=== PATIENT | male | born 1970 | race Hispanic/Latino ===

== ENCOUNTER 2017-10-31 07:22 | Emergency (ER) | payer OTHER ==
--- OUTSIDE RECORDS SUMMARY | 2017-10-31 07:26 | XMS REPORT | Continuity of Care Document ---
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
--- OUTSIDE RECORDS SUMMARY | 2017-10-31 07:26 | XMS REPORT | Continuity of Care Document ---
:1970 Author Organization [facility] Care Team Providers Name Role Phone Alcides Renae MD Unavailable Insurance Providers Payer name Policy type / Coverage Policy ID Covered republican ID Policy [place]) [place]) [place]) [place]) [place]) [place]) [place]) [place]) [place]* *[place] Encounters Encounter Performer Location Date Office Visit Alcides Renae MD [facility] [place] Feb 06, 2014 Problems Problem Effective Dates 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, 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, 2014 Active Procedures Date Description Comments Dec 01, 2013 smoking status former smoker Dec 01, 2013 smoking status Never smoker Feb 06, 2014 smoking status Never smoker Medications Medication Instructions [...] - 8462-4 BP DIASTOLIC 87 mm Hg Jan 01, 2014 weight E&M - 3141-9 WEIGHT 165.0 lb Jan 01, 2014 height E&M - 8302-2 HEIGHT 69 in Jan 01, 2014 temperature E&M TEMPERATURE 97.3 deg f Jan 01, 2014 pulse rate E&M - 8867-4 PULSE RATE 62 /min Jan 01, 2014 blood pressure, systolic - 8480-6 BP SYSTOLIC 116 mm Hg Jan 01, 2014 blood pressure, diastolic - 8462-4 BP DIASTOLIC 78 mm Hg Feb 06, 2014 weight E&M - 3141-9 WEIGHT 165 lb Feb 06, 2014 height E&M - 8302-2 HEIGHT 69 in Feb 06, 2014 temperature E&M TEMPERATURE 97.2 deg f Feb 06, 2014 pulse rate E&M - 8867-4 PULSE RATE 77 /min Feb 06, 2014 blood pressure, systolic - 8480-6 BP SYSTOLIC 118 mm Hg Feb 06, 2014 blood pressure, diastolic - 8462-4 BP DIASTOLIC 76 mm Hg
--- OUTSIDE RECORDS SUMMARY | 2017-10-31 07:26 | XMS REPORT | Continuity of Care Document ---
:1970 Author Organization Interface Problems Problem Status Onset Classification Date Comments Source Date Reported COMMUNICATING Active Condition 02/06/2014 [facility] HYDROCEPHALUS 4 [facility] OTHER SPECIFIED Active Condition 02/06/2014 [facility] ACQUIRED 4 Neuro DEFORMITY OF HEAD Medications Medication Details Route Status Patient Ordering Order Source Instructions Provider Date KEPPRA TABS Active 12/02/19 [facility] 14 [facility] Allergies, Adverse Reactions, Alerts Substance Category Reaction Severity Reaction Status Date Comments Source type Reported Immunizations Immunization Date Given Site Status Last Updated Comments Source Results Order Results Value Reference Date Interpretation Comments Source Name Range Vital Signs Vital Sign Value Date Comments Source Weight 165 02/06/2014 [facility] [place] 69 02/06/2014 [facility] Temperature Oral (F) 97.2 F 02/06/2014 [facility] Heart Rate 77 [facility]06[facility] Systolic (mm Hg) 118 02/06/2014 [facility] Diastolic (mm Hg) 76 02/06/2014 [facility] Weight 165.0 01/01/2014 [facility] Height 69 01/01/2014 [facility] Temperature Oral (F) 97.3 F 01/01/2014 [facility] Heart Rate 62 01/01/2014 [facility] Systolic (mm Hg) 116 01/01/2014 [facility] Diastolic (mm Hg) 78 01/01/2014 [facility] Temperature Oral (F) 98.1 F 12/01/2013 [facility] Respitory Rate 16 12/01/2013 [facility] Heart Rate 72 12/01/2013 [facility] Systolic (mm Hg) 134 12/01/2013 [facility] Diastolic (mm Hg) 87 12/01/2013 [facility] En[place] Location Location Encounter Encounter Reason Attending ADM DC Status Source Details Type Number For Provider Date Date Visit [facility] Report [id number] Alcides 12/02 12/02 Joan Benz 8930 Batool ELLISON /2013 [facility] [place] [facility] [id number] Alcides 01/01 01/01 [facility] [id number] ELLISON /2013 [facility] [id number] Alcides 02/06 02/06 [facility] [id number] Batool ELLISON /2013 [facility] Procedures Procedure Code Date Perfomer Comments Source
--- OUTSIDE RECORDS SUMMARY | 2017-10-31 07:26 | XMS REPORT | Continuity of Care Document ---
:1970 Author Organization [facility] Care Team Providers Name Role Phone Batool ELLISON, Alcides Unavailable Unavailable Insurance Providers Payer name Policy type / Coverage Policy ID Covered libertarian ID Policy [place]) [place]) [place]) [place]* Encounters Encounter Performer Location Date Office Visit Alcides Renae MD [facility] [place] Jan 01, 2014 Problems Problem Effective Dates Problem Status [...]
--- NOTE | 2017-10-31 08:24 | RAD REPORT ---
EXAM DESCRIPTION: RAD - Shoulder Left 2 View - 10/31/2017 7:51 am CLINICAL HISTORY: Left shoulder pain status post fall FINDINGS: No acute fracture or dislocation is seen.
--- NOTE | 2017-10-31 08:24 | RAD REPORT ---
EXAM DESCRIPTION: RAD - Clavicle Left - 10/31/2017 7:51 am CLINICAL HISTORY: Left shoulder pain FINDINGS: No fracture or dislocation is seen
[2017-10-31] MEDS ORDERED: HYDROCODONE/APAP 10/325 TAB ONE (08:53)
--- NOTE | 2017-10-31 10:39 | RAD REPORT ---
EXAM DESCRIPTION: RAD - Lumbar Spine 3 Views - 10/31/2017 10:20 am CLINICAL HISTORY: Back pain FINDINGS: The alignment of the lumbar spine is satisfactory. No fracture or dislocation is seen. Mild to moderate disc space narrowing involves L5-S1.
--- NOTE | 2017-10-31 11:05 | ER ---
Nurse's Notes [facility] Name: Chucky Weinberg Age: 47 yrs Sex: Male : 1970 Arrival Date: 10/31/2017 Time: 07:23 Bed 7 Private MD: Diagnosis: Other slipping, tripping and stumbling and falls;Pain in left hip;Pain in left shoulder;Low back pain Presentation: 10/31 07:23 Presenting complaint: EMS states: Left leg gave out during transfer from bed to chair, hb landing on left side, c/o left arm, left hip, and low back pain. Hx CVA with left sided weakness. Denies other injuries, negative LOC. Care prior to arrival: None. Mechanism of Injury: Fall out of bed. Trauma event details: Injury occurred in the [facility], Injury occurred: at home. Injury occurred: October 31, 2017. 07:23 Acuity: JAVIER 3 hb 07:23 Method Of Arrival: EMS: [facility] 07:40 Transition of care: patient was not received from another setting of care. Onset of hb symptoms was October 31, 2017. Risk Assessment: Do you want to hurt yourself or someone else? Patient reports no desire to harm self or others. Initial Sepsis Screen: Does the patient meet any 2 criteria? No. Patient's initial sepsis screen is negative. Does the patient have a suspected source of infection? No. Patient's initial sepsis screen is negative. Trauma Activation: Not Applicable Physician: ED Physician; Name: ; Notified At: ; Arrived At: Physician: General Surgeon; Name: ; Notified At: ; Arrived At: Physician: Radiology; Name: ; Notified At: ; Arrived At: Physician: Respiratory; Name: ; Notified At: ; Arrived At: Physician: Lab; Name: ; Notified At: ; Arrived At: Historical: - Allergies: 07:39 No Known Allergies; hb - Home Meds: 07:38 aspirin 81 mg Oral chew 1 tab once daily [Active]; Ativan 1 mg Oral tab 3 times per day hb [Active]; atorvastatin 20 mg oral tab 1 tab once daily [Active]; docusate sodium 100 mg Oral cap 1 cap once daily [Active]; doxepin 10 mg Oral cap 2 caps nightly [Active]; Keppra 500 mg Oral tab 1 tab 2 times per day [Active]; metformin 500 mg Oral tab 1 tab 2 times per day [Active]; senna 8.6 mg oral cap [Active]; tamsulosin 0.4 mg oral cp24 1 cap once daily [Active]; - PMHx: 07:38 Diabetes - NIDDM; CVA; Hyperlipidemia; Seizures; hb - Immunization history: Last tetanus immunization: - up to date. - Social history:: Smoking status: Patient/guardian denies using tobacco. - Ebola Screening: : No symptoms or risks identified at this time. Screenin:29 Abuse screen: Denies threats or abuse. Denies injuries from another. Tuberculosis hb screening: No symptoms or risk factors identified. 07:39 Nutritional screening: No deficits noted. Fall Risk Total Abraham Fall Scale indicates hb High Risk Score (45 or more points). Fall prevention measures have been instituted. Side Rails Up X 2 Frequent Obs/Assessments Occuring As available patient and family educated on Fall Prevention Program and Strategies. Primary Survey: 07:25 A: Airway: patent, No supplemental oxygen in use on arrival. Breathing/Chest: hb Respiratory pattern: regular, Respiratory effort: spontaneous, unlabored, Breath sounds: clear, bilaterally. Chest inspection: symmetrical rise and fall of the chest. Circulation: Pulses: palpable . Skin color: pink, Skin temperature: warm, dry. Disability Alert. 08:15 Reassessment Airway Airway Patent Oxygen No O2 Breathing/Chest Respiratory pattern hb Regular Respiratory effort Spontaneous Unlabored Chest inspection Symmetrical Circulation Color [place] Temperature Warm Dry Disability Alert. 09:15 Reassessment Airway Airway Patent Oxygen No O2 Breathing/Chest Respiratory pattern hb Regular Respiratory effort Spontaneous Unlabored Chest inspection Symmetrical Circulation Color [place] Temperature Warm Dry Disability Alert. 10:15 Reassessment Airway Airway Patent Oxygen No O2 Breathing/Chest Respiratory pattern hb Regular Respiratory effort Spontaneous Unlabored Chest inspection Symmetrical Circulation Color [place] Temperature Warm Dry Disability Alert. 11:15 Reassessment Airway Airway Patent Oxygen No O2 Breathing/Chest Respiratory pattern hb Regular Respiratory effort Spontaneous Unlabored Chest inspection Symmetrical Circulation Color [place] Temperature Warm Dry Disability Alert. 12:15 Reassessment Airway Airway Patent Oxygen No O2 Breathing/Chest Respiratory pattern hb Regular Respiratory effort Spontaneous Unlabored Chest inspection Symmetrical Circulation Color [place] Temperature Warm Dry Disability Alert. Secondary Survey: 07:25 HEENT: No deficits noted. Gastrointestinal: No deficits noted. : No deficits noted. hb Musculoskeletal: left lower leg brace in place. Pt c/o left hip. left arm, and low back pain. Assessment: 07:39 General: Appears in no apparent distress. Behavior is calm, cooperative. Pain: Pain hb currently is 7 out of 10 on a pain scale. Neuro: Level of Consciousness is awake, alert, obeys commands, Oriented to person, place, time, situation. Cardiovascular: Capillary refill < 3 seconds Patient's skin is warm and dry. Respiratory: Airway is patent Trachea midline Respiratory effort is even, unlabored, Respiratory pattern is regular, symmetrical, Breath sounds are clear bilaterally. GI: No signs and/or symptoms were reported involving the gastrointestinal system. : No signs and/or symptoms were reported regarding the genitourinary system. EENT: No signs and/or symptoms were reported regarding the EENT system. Derm: No signs and/or symptoms reported regarding the dermatologic system. Skin is intact, is healthy with good turgor. Musculoskeletal: No signs and/or symptoms reported regarding the musculoskeletal system. 07:41 Reassessment: XRAY at bedside. 08:15 Reassessment: Patient appears in no apparent distress at this time. Patient and/or hb family updated on plan of care and expected duration. Pain level reassessed. Patient is alert, oriented x 3, equal unlabored respirations, skin warm/dry/pink. Awaiting radiology results at this time. 08:56 Reassessment: Reassessment: Pt c/o pain 7/10, requesting gain medication. Dr. Bey notified, [place] administered as ordered. VSS. 09:45 Reassessment: Patient appears in no apparent distress at this time. Patient and/or hb family updated on plan of care and expected duration. Pain level reassessed. Patient is alert, oriented x 3, equal unlabored respirations, skin warm/dry/pink. 10:45 Reassessment: Patient appears in no apparent distress at this time. Patient and/or hb family updated on plan of care and expected duration. Pain level reassessed. Patient is alert, oriented x 3, equal unlabored respirations, skin warm/dry/pink. 11:17 Reassessment: Report called to [facility], nurse Jennifer. Jennifer reports she ss will called [facility] and arrange for transportation back to senior living. 12:15 Reassessment: Patient appears in no apparent distress at this time. Patient and/or hb family updated on plan of care and expected duration. Pain level reassessed. Patient is alert, oriented x 3, equal unlabored respirations, skin warm/dry/pink. Vital Signs: 07:28 BP 99 / 47; Pulse 82; Resp 16; Temp 98.5; Pulse Ox 100% on R/A; Pain 7/10; hb 08:15 BP 112 / 42; Pulse 80; Resp 15; Pulse Ox 100% on R/A; Pain 7/10; hb 08:45 BP 108 / 45; Pulse 55; Resp 16; Pulse Ox 99% ; sv 09:45 BP 108 / 45; Pulse 55; Resp 17; Pulse Ox 100% on R/A; dh3 10:45 BP 93 / 57; Pulse 53; Resp 16; Pulse Ox 95% on R/A; dh3 11:15 BP 109 / 55; Pulse 61; Resp 14; Pulse Ox 100% on R/A; Pain 3/10; hb Mullin Coma Score: 07:28 Eye Response: spontaneous(4). Verbal Response: oriented(5). Motor Response: obeys hb commands(6). Total: 15. Trauma Score (Adult): 07:28 Eye Response: spontaneous(1); Verbal Response: oriented(1); Motor Response: obeys hb commands(2); Systolic BP: > 89 mm Hg(4); Respiratory Rate: 10 to 29 per min(4); Tab Score: 15; Trauma Score: 12 08:15 Eye Response: spontaneous(1); Verbal Response: oriented(1); Motor Response: obeys hb commands(2); Systolic BP: > 89 mm Hg(4); Respiratory Rate: 10 to 29 per min(4); Mullin Score: 15; Trauma Score: 12 09:15 Eye Response: spontaneous(1); Verbal Response: oriented(1); Motor Response: obeys hb commands(2); Systolic BP: > 89 mm Hg(4); Respiratory Rate: 10 to 29 per min(4); Mullin Score: 15; Trauma Score: 12 10:15 Eye Response: spontaneous(1); Verbal Response: oriented(1); Motor Response: obeys hb commands(2); Systolic BP: > 89 mm Hg(4); Respiratory Rate: 10 to 29 per min(4); Mullin Score: 15; Trauma Score: 12 11:15 Eye Response: spontaneous(1); Verbal Response: oriented(1); Motor Response: obeys hb commands(2); Systolic BP: > 89 mm Hg(4); Respiratory Rate: 10 to 29 per min(4); Tab Score: 15; Trauma Score: 12 ED Course: 07:23 Patient arrived in ED. hb 07:25 Triage completed. hb 07:25 Dre Bey MD is Attending Physician. kdr 07:30 Arm band placed on right wrist. hb 07:39 Patient has correct armband on for positive identification. Placed in gown. Bed in low hb position. Call light in reach. Side rails up X2. 07:41 Patient maintains SpO2 saturation greater than 95% on room air. Thermoregulation: warm hb blanket given to patient. 07:48 X-ray completed. Portable x-ray completed in exam room. Patient tolerated procedure jb2 poorly. 07:49 Shoulder Left (2 View) XRAY In Process Unspecified. EDMS 07:49 Clavicle Left XRAY In Process Unspecified. EDMS 08:20 Assisted with urinal. Repositioned patient. hb 09:12 Lizzette Sapp, RN is Primary Nurse. hb 10:20 Lumbar Spine (3 Views) XRAY In Process Unspecified. EDMS 10:20 Hip Left 2 View XRAY In Process Unspecified. EDMS 10:21 X-ray completed. Patient tolerated procedure well. Patient moved back from radiology. jb2 11:21 No provider procedures requiring assistance completed. Patient did not have IV access ss during this emergency room visit. Administered Medications: 08:54 Drug: [place] 10 mg-325 mg 1 tabs Route: PO; hb Intake: 08:15 PO: 100ml (Water); Total: 100ml. hb Output: 08:15 Urine: 300ml (Voided); Total: 300ml. hb Outcome: 11:04 Discharge ordered by . kdr 11:21 Discharge instructions given to patient, senior living, Nurse, Jennifer Instructed on ss discharge instructions, follow up and referral plans. Demonstrated understanding of instructions, follow-up care. 12:43 Discharged to senior living. hb 12:43 Condition: stable 12:44 Patient's length of stay in the Emergency Department was greater than 2 hours. awaiting hb transportation Patient's length of stay extended due to 12:44 Patient left the ED. hb Signatures: Dispatcher [employer] Saritha Sosa RN RN sv Rittger, Kevin, MD MD kdr Buechter, Jesse jb2 Smirch, Shelby, RN RN ss Baxter, Heather, RN RN hb Herrera, Deanna 3 Corrections: (The following items were deleted from the chart) 08:56 07:41 Reassessment: XRAY at bedside Patient denies pain at this time. hb hb
--- NOTE | 2017-10-31 11:05 | EDPHYS ---
Physician Documentation [facility] Name: Chucky Weinberg Age: 47 yrs Sex: Male : 1970 Arrival Date: 10/31/2017 Time: 07:23 Bed 7 Private MD: ED Physician Dre Bey HPI: 10/31 07:33 This 47 yrs old Male presents to ER via EMS with complaints of Fall Injury. kdr 07:33 Details of fall: The patient fell from seated position, while transferring. Onset: The kdr symptoms/episode began/occurred suddenly, just prior to arrival. Associated injuries: The patient sustained Left shoulder. Severity of symptoms: At their worst the symptoms were mild, in the emergency department the symptoms are unchanged. The patient has not experienced similar symptoms in the past. The patient has not recently seen a physician. 07:33 The patient states that he was transferring from bed to chair when he fell to the kdr ground on his left side. He states that he hit his head but there was no LOC. He has had a prior cranial surgery and has a [employer] shunt.. Historical: - Allergies: 07:39 No Known Allergies; hb - Home Meds: 07:38 aspirin 81 mg Oral chew 1 tab once daily [Active]; Ativan 1 mg Oral tab 3 times per day hb [Active]; atorvastatin 20 mg oral tab 1 tab once daily [Active]; docusate sodium 100 mg Oral cap 1 cap once daily [Active]; doxepin 10 mg Oral cap 2 caps nightly [Active]; Keppra 500 mg Oral tab 1 tab 2 times per day [Active]; metformin 500 mg Oral tab 1 tab 2 times per day [Active]; senna 8.6 mg oral cap [Active]; tamsulosin 0.4 mg oral cp24 1 cap once daily [Active]; - PMHx: 07:38 Diabetes - NIDDM; CVA; Hyperlipidemia; Seizures; hb - Immunization history: Last tetanus immunization: - up to date. - Social history:: Smoking status: Patient/guardian denies using tobacco. - Ebola Screening: : No symptoms or risks identified at this time. ROS: 07:33 Constitutional: Negative for fever, chills, and weight loss, Eyes: Negative for injury, kdr pain, redness, and discharge, Neck: Negative for injury, pain, and swelling, Cardiovascular: Negative for chest pain, palpitations, and edema, Respiratory: Negative for shortness of breath, cough, wheezing, and pleuritic chest pain, Abdomen/GI: Negative for abdominal pain, nausea, vomiting, diarrhea, and constipation, Back: Negative for injury and pain, : Negative for injury, bleeding, discharge, and swelling, Skin: Negative for injury, rash, and discoloration, Neuro: Negative for headache, weakness, numbness, tingling, and seizure activity. Psych: Negative for depression, anxiety, suicide ideation, homicidal ideation, and hallucinations, Allergy/Immunology: Negative for hives, rash, and allergies. Exam: 07:33 Constitutional: This is a well developed, well nourished patient who is awake, alert, kdr and in no acute distress. Eyes: Pupils equal round and reactive to light, extra-ocular motions intact. Lids and lashes normal. Conjunctiva and sclera are non-icteric and not injected. Cornea within normal limits. Periorbital areas with no swelling, redness, or edema. Neck: Trachea midline, no thyromegaly or masses palpated, and no cervical lymphadenopathy. Supple, full range of motion without nuchal rigidity, or vertebral point tenderness. No Meningismus. Chest/axilla: Normal chest wall appearance and motion. Nontender with no deformity. No lesions are appreciated. Cardiovascular: Regular rate and rhythm with a normal S1 and S2. No gallops, murmurs, or rubs. Normal PMI, no JVD. No pulse deficits. Respiratory: Lungs have equal breath sounds bilaterally, clear to auscultation and percussion. No rales, rhonchi or wheezes noted. No increased work of breathing, no retractions or nasal flaring. Abdomen/GI: Soft, non-tender, with normal bowel sounds. No distension or tympany. No guarding or rebound. No evidence of tenderness throughout. 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 He c/o pain to the superior medial aspect of the left shoulder between his neck and lateral shoulder. There is no obvious deformity or limit in ROM beyond his normal. Vital Signs: 07:28 BP 99 / 47; Pulse 82; Resp 16; Temp 98.5; Pulse Ox 100% on R/A; Pain 7/10; hb 08:15 BP 112 / 42; Pulse 80; Resp 15; Pulse Ox 100% on R/A; Pain 7/10; hb 08:45 BP 108 / 45; Pulse 55; Resp 16; Pulse Ox 99% ; sv 09:45 BP 108 / 45; Pulse 55; Resp 17; Pulse Ox 100% on R/A; dh3 10:45 BP 93 / 57; Pulse 53; Resp 16; Pulse Ox 95% on R/A; dh3 11:15 BP 109 / 55; Pulse 61; Resp 14; Pulse Ox 100% on R/A; Pain 3/10; hb Tab Coma Score: 07:28 Eye Response: spontaneous(4). Verbal Response: oriented(5). Motor Response: obeys hb commands(6). Total: 15. Trauma Score (Adult): 07:28 Eye Response: spontaneous(1); Verbal Response: oriented(1); Motor Response: obeys hb commands(2); Systolic BP: > 89 mm Hg(4); Respiratory Rate: 10 to 29 per min(4); Madison Score: 15; Trauma Score: 12 08:15 Eye Response: spontaneous(1); Verbal Response: oriented(1); Motor Response: obeys hb commands(2); Systolic BP: > 89 mm Hg(4); Respiratory Rate: 10 to 29 per min(4); Tab Score: 15; Trauma Score: 12 09:15 Eye Response: spontaneous(1); Verbal Response: oriented(1); Motor Response: obeys hb commands(2); Systolic BP: > 89 mm Hg(4); Respiratory Rate: 10 to 29 per min(4); Madison Score: 15; Trauma Score: 12 10:15 Eye Response: spontaneous(1); Verbal Response: oriented(1); Motor Response: obeys hb commands(2); Systolic BP: > 89 mm Hg(4); Respiratory Rate: 10 to 29 per min(4); Tab Score: 15; Trauma Score: 12 11:15 Eye Response: spontaneous(1); Verbal Response: oriented(1); Motor Response: obeys hb commands(2); Systolic BP: > 89 mm Hg(4); Respiratory Rate: 10 to 29 per min(4); Tab Score: 15; Trauma Score: 12 MDM: 09:46 Data reviewed: vital signs, radiologic studies. Counseling: I had a detailed discussion kdr with the patient and/or guardian regarding: the historical points, exam findings, and any diagnostic results supporting the discharge/admit diagnosis, radiology results, the need for outpatient follow up. ED course: The patient feels better but continues to have pain/discomfort in his low back and left hip. On palpation of low back, no abnormality noted and the patient did not react as if he was having any additional pain. Left hip without apparent pain on mild ROM. Given his prior CVA and altered neuro status on the left, will get additional x-rays.. 11:04 Patient medically screened. kdr 10/31 07:33 Order name: Shoulder Left (2 View) XRAY; Complete Time: 08:46 kdr 10/31 07:33 Order name: Clavicle Left XRAY; Complete Time: 08:46 kdr 10/31 09:46 Order name: Lumbar Spine (3 Views) XRAY; Complete Time: 10:54 kdr 10/31 09:46 Order name: Hip Left 2 View XRAY kdr Administered Medications: 08:54 Drug: [place] 10 mg-325 mg 1 tabs Route: PO; hb Disposition: 10/31/17 11:04 Discharged to Home. Impression: Other slipping, tripping and stumbling and falls, Pain in left hip, Pain in left shoulder, Low back pain. - Condition is Stable. - Discharge Instructions: Musculoskeletal Pain, Shoulder Pain, Back Pain, Adult, [id number]. - Medication Reconciliation Form, Thank You Letter form. - Follow up: Private Physician; When: 2 - 3 days; Reason: If symptoms return, Further diagnostic work-up, Recheck today's complaints, Continuance of care, Re-evaluation by your physician. - Problem is new. - Symptoms have improved. Signatures: Dispatcher [employer] EDMS Dre Bey MD MD kdr Lizzette Sapp RN RN hb Corrections: (The following items were deleted from the chart) 12:44 11:04 10/31/2017 11:04 Discharged to Home. Impression: Other slipping, tripping and hb stumbling and falls; Pain in left hip; Pain in left shoulder; Low back pain. Condition is Stable. Forms are Medication Reconciliation Form, Thank You Letter, Antibiotic Education, Prescription Opioid Use. Follow up: Private Physician; When: 2 - 3 days; Reason: If symptoms return, Further diagnostic work-up, Recheck today's complaints, Continuance of care, Re-evaluation by your physician. Problem is new. Symptoms have improved. kdr
--- NOTE | 2017-10-31 11:24 | RAD REPORT ---
EXAM DESCRIPTION: RAD - Hip Left 2 View - 10/31/2017 10:20 am CLINICAL HISTORY: Left hip pain status post fall FINDINGS: No fracture or dislocation is seen. The bones are osteoporotic. If the patient continues have symptoms to suggest an occult fracture then MRI would be recommended
== END 2017-10-31 12:44 | disposition home or self-care (01) ==
LOC: ER 07:22
DX: M25.512 Pain in left shoulder (principal); M25.552 Pain in left hip; E78.5 Hyperlipidemia, unspecified; E11.9 Type 2 diabetes mellitus without complications; G40.909 Epilepsy, unspecified, not intractable, without status epilepticus; W17.89XA Other fall from one level to another, initial encounter; Y93.89 Activity, other specified; Y92.009 Unspecified place in unspecified non-institutional (private) residence as the place of occurrence of the external cause; Z79.82 Long term (current) use of aspirin
CPT/HCPCS: 72100; 99284

== ENCOUNTER 2021-07-31 12:36 | Emergency (ER) | payer OTHER ==
--- OUTSIDE RECORDS SUMMARY | 2021-07-31 12:48 | XMS REPORT | Continuity of Care Document ---
:1970 Author Organization [facility] t Address [address] [place] [address] Care Team Providers Name Role Phone Brain ELLISON Primary Care Physician [id number] Attending Clinician Unavailable Boris Lay Attending Clinician Unavailable Attending Clinician Unavailable Singer BURLESON Attending Clinician Marcelino GREER Attending Clinician Unavailable Marcelino Iglesias Attending Clinician EUGENE Attending Clinician Unavailable Eugene ELLISON Attending Clinician Marcelino Field MD Attending Clinician Aaron ELLISON Attending Clinician Brain ELLISON Attending Clinician Doctor Unassigned, Name Attending Clinician Unavailable Luis MAYO Attending Clinician Unavailable Luis MAYO Attending Clinician Unavailable Atanasov MD, T Attending Clinician EDEMEKONG Attending Clinician Unavailable Provider, Urgent Care Attending Clinician Unavailable Jose RN, A Attending Clinician Unavailable 2, Lab Attending Clinician Unavailable 1, Sleep Lab Bed Attending Clinician Unavailable Azar BURLESON Attending Clinician Iram Fleming DO Attending Clinician Pob, Lab Main Attending Clinician Unavailable Nette Singer MD Attending Clinician Ira CHAMPION Attending Clinician Unavailable CHARITO BAEZA Attending Clinician Unavailable LYNDSEY CORTEZ Attending Clinician Unavailable [id number] Admitting Clinician Unavailable GREER, R Admitting Clinician Unavailable EUGENE Admitting Clinician Unavailable Ira CHAMPION Admitting Clinician Unavailable CHARITO BAEZA Admitting Clinician Unavailable LYNDSEY CORTEZ Admitting Clinician Unavailable Payers Payer Name Policy Type Policy Number Effective Date Expiration Date S [facility] [id number] HUMM HUMM [id number] [facility] DUAL [id number] 2021 COMP CHOICE PPO 00:00:00 DSNP MEDICAID OF [place] [id number] 2021 00:00:00 Problems Condition Condition Condition Status Onset Resolution Last Treating Co mments Source Name Details Category Date Date Treatment Clinician Date Other Other Disease Active 2020-0 [facility] headache headache 3-05 ity of syndrome syndrome 00:00: [place] 00 [facility] 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 1-14 ity of 00:00: [place] [facility] Mobility Mobility Disease Active 2020-0 Unive rs impaired impaired 1-14 ity of 00:00: [place] 00 [facility] Balance Balance Disease Active 2020-0 [facility] problem problem 1-14 ity of 00:00: [place] 00 [facility] Sleep Sleep Disease Active 2020-0 [facility] apnea in apnea in 1-14 ity of adult adult 00:00: [place] 00 [facility] Class 3 Class 3 Disease Active 2020-0 [facility] severe severe 1-14 ity of obesity obesity 00:00: [place] due to due to 00 Medical excess excess Branch calories calories without without serious serious comorbidit comorbidit y with y with body mass body mass index index (BMI) of (BMI) of 40.0 to 40.0 to 44.9 in 44.9 in adult adult Urinary Urinary Disease Active 2020-0 [facility] incontinen incontinen 1-14 it y of ce, ce, 00:00: [place] unspecifie unspecifie 00 Me dical d type d type Branch Neuropathy Neuropathy Disease Active U nivers 1-14 ity of 00:00: Medical Branch Anxiety Anxiety Disease Active Univers 1-14 ity of 00:00: [place] [facility] Impaired Impaired Disease Active Unive rs gait and gait and 5-28 ity of mobility mobility 00:00: [place] [facility] Communicat Communicat Disease Active U nivers ing ing 5-25 ity of hydrocepha hydrocepha 00:00: [place] erin erin [facility] Branch Left-sided Left-sided Disease Active U nivmalaika weakness weakness 3-04 ity of 00:00: [place] [facility] Stroke Stroke Disease Active 2017-03 Univers (cerebrum) (cerebrum) 0-23 it y of 00:00: [place] [facility] Hypertensi Hypertensi Disease Active 2017-03 U nivmalaika on, on, 0-23 ity of unspecifie [place]specifie [place] type 00 [facility] Hyperlipid Hyperlipid Disease Active 2017-03 U nivmalaika emia, emia, 0-23 ity of unspecifie unspecifie [place] hyperlipid hyperlipid Br anch emia type emia type Hemorrhagi Hemorrhagi Disease Active U nivmalaika c stroke c stroke 11-24 ity of 00:00: [place] 00 Medical Branch Depression Depression Disease Active U herman , , 11-24 ity of unspecifie unspecifie [place] depression depression Br anch type type Type 2 Type 2 Disease Active Univers diabetes diabetes 11-24 ity of mellitus mellitus 00:00: [place] without without 00 Medical complicati complicati Br anch on, on, without without long-term long-term current current use of use of insulin insulin Mood Mood Disease Active Univers disorder disorder 11-24 ity of 00:00: [place] 00 Medical Branch Urinary Urinary Disease Active Univers hesitancy hesitancy 11-24 ity of 00:00: [place] [facility] Malfunctio Malfunctio Disease Active U nivers n of n of 3-13 ity of intratheca intratheca [place] infusion l infusion 00 Me dical pump pump Branch Cognitive Cognitive Disease Active Uni vers deficit, deficit, 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 of post-strok post-strok 00:[place] [facility] 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 8-17 it y of s s 00:00: [place] deformity deformity 00 Medi cheryl of left of left Branch foot foot Hypertroph Hypertroph Disease Active U nivers ic scar of ic scar of 817 it y of skin skin 00:00: [place] 00 Medical Branch Visual Visual Disease Active Univers disturbanc disturbanc 8-17 it y of e e 00:00: [place] [facility] Spastic Spastic Disease Active Univers hemiplegia hemiplegia 7-05 it [place] of affecting affecting 00:[place] Medical nondominan nondominan Br anch t side t side Allergies, Adverse Reactions, Alerts Allergy Allergy Status Severity Reaction(s) Onset Inactive Treating Comm ents Source Name Type Date Date Clinician NO KNOWN Drug Active Univers ALLERGIE Class ity of S [facility] Social History Social Habit Start Date Stop Date Quantity Comments Source Exposure to 2021-07-16 2021-07-26 Unable to assess Univers ity of SARS-CoV-2 00:00:00 09:29:00 [place] [facility] (event) [place] Tobacco use and 2016-11-24 2016-11-24 Never used Universit y of exposure 00:00:00 00:00:00 [facility] History of 2009-11-24 Smoker University of tobacco use 00:00:00 [facility] Sex Ass[birth year] At [birth year] [facility] 00:00:00 00:00:00 Smoking Status Start Date Stop Date Source Tobacco smoking [facility] consumption unknown Former smoker 2016-11-24 00:00:00 2016-11-24 [facility] [place] 00:00:00 Medical Branch Medications Ordered Filled Start Stop Current Ordering Indication Dosage Frequency Signature Comments Components Source Medication Medication Date Date Medication? Clinician (SIG) Name Name FENTanyl PF 75ug 75 mcg, Un hunter (SUBLIMAZE 5-10 05-10 Slow IV ity o f (PF)) 17:17: 17:18 Push, [place] injection 00 :00 ONCE, 1 Medical 75 mcg dose, On Branch Tu07/26/21 at 1230, STAT HYDROcodone 2021- Yes 4647 .5{tbl} Take 0.5-1 Univers -acetaminop 5-10 05-18 tablets by i ty of hen (NORCO) 00:00: 04:59 [place] 10-325 mg 00 :00 every 6 Medical tablet (six) Branch hours as needed for Pain (scale 7-10) for up to 7 days. Indication s: acute pain naloxone 2021- No .4mg 0.4 mg, Unive rs (NARCAN) 06-08 Slow IV ity of injection 17:30: 16:24 Push, [place] 0.4 mg 00 :00 ONCE, 1 Medical dose, On Branch 06/08/21 at 1230, Routine HYDROcodone 2021- No 7.5mg 7.5 mg, U nivers -acetaminop 06-07 Oral, ity of hen (HYCET) 18:00: 16:50 [place] 7.5-325 [place] :00 dose, On Medical mg/15 mL Tue Branch PEDI 06/07/21 at solution 1300, LEW 7.5 mg ibuprofen 0 Yes [id number] 800mg Take 1 Univers 800 mg 3-22 tablet by ity of tablet 00:00: mouth [place] 00 every 8 Medical (eight) Branch hours as needed for Pain (scale 4-6). ondansetron 2021-0 Yes [id number] 4mg Take 1 Univers 4 mg 3-22 tablet by ity of disintegrat 00:00: mouth [place] ing tablet 00 every 4 Medica l (four) Branch hours as needed for Nausea and Vomiting (N/V). ibuprofen 2021-0 Yes [id number] 800mg Take 1 Univers 800 mg 3-22 tablet by ity of tablet 00:00: mouth [place] 00 every 8 Medical (eight) Branch hours as needed for Pain (scale 4-6). ondansetron 2021-0 Yes [id number] 4mg Take 1 Univers 4 mg 3-22 tablet by ity of disintegrat 00:00: mouth [place] ing tablet 00 every 4 Medica l (four) Branch hours as needed for Nausea and Vomiting (N/V). ibuprofen 0 Yes [id number] 800mg Take 1 Univers 800 mg 3-22 tablet by ity of tablet 00:00: mouth [place] 00 every 8 Medical (eight) Branch hours as needed for Pain (scale 4-6). ondansetron Yes [id number] 4mg Take 1 Univers 4 mg 3-22 tablet by ity of disintegrat 00:00: mouth [place] ing tablet 00 every 4 Medica l (four) Branch hours as needed for Nausea and Vomiting (N/V). ibuprofen Yes [id number] 800mg Take 1 Univers 800 mg 3-22 tablet by ity of tablet 00:00: mouth [place] 00 every 8 Medical (eight) Branch hours as needed for Pain (scale 4-6). ondansetron Yes [id number] 4mg Take 1 Univers 4 mg 3-22 tablet by ity of disintegrat 00:00: mouth [place] ing tablet 00 every 4 Medica l (four) Branch hours as needed for Nausea and Vomiting (N/V). HYDROcodone 2021- Yes [id number] 1{tbl} Take 1 U nivers -acetaminop 3-22 03-30 tablet by it y of hen (NORCO) 00:00: 04:59 [place] 7.5-325 mg 00 :00 every 8 Medica l per tablet (eight) Branch hours as needed for Pain for up to 7 days. Indication s: acute pain HYDROcodone 2021- Yes [id number] 1{tbl} Take 1 U nivers -acetaminop 3-22 03-30 tablet by it y of hen (NORCO) 00:00: 04:59 [place] 7.5-325 mg 00 :00 every 8 Medica l per tablet (eight) Branch hours as needed for Pain for up to 7 days. Indication s: acute pain neomycin-po 2020- No [id number] 3[drp] Place 3 Univers lymyxin-hyd -03 04-09 Drops in ity of rocortisone 00:00: 04:59 left ear 4 [place] otic 00 :00 (four) Medical solution times Branch daily for 5 days. levoFLOXaci 2020- No [id number] 750mg Take 1 Univers n 750 mg 3-15 03-21 tablet by ity o f tablet 00:00: 04:59 mouth [place] 00 :00 every 24 Medical ([facility]) hours for 5 days. levoFLOXaci 2019-0 2020- No [id number] 750mg Take 1 Univers n 750 mg 3-15 03-21 tablet by ity o f tablet 00:00: 04:59 mouth [place] 00 :00 every 24 Medical ([facility]) hours for 5 days. levoFLOXaci 2019- No [id number] 750mg Take 1 Univers n 750 mg 3-15 03-21 tablet by ity o f tablet 00:00: 04:59 mouth [place] 00 :00 every 24 Medical ([facility]) hours for 5 days. levoFLOXaci 2019- No [id number] 750mg Take 1 Univers n 750 mg 3-15 03-21 tablet by ity o f tablet 00:00: 04:59 mouth [place] 00 :00 every 24 Medical ([facility]) hours for 5 days. pioglitazon 2020-0 Yes [id number] 30mg Take 1 Univers e 30 mg 3-13 tablet by ity of tablet 00:00: mouth [place] 00 daily. Medical Branch pioglitazon 2020-0 Yes [id number] 30mg Take 1 Univers e 30 mg 3-13 tablet by ity of tablet 00:00: mouth [place] 00 [facility]. [facility] pioglitazon 2020-0 Yes [id number] 30mg Take 1 Univers e 30 mg 3-13 tablet by ity of tablet 00:00: mouth [place] 00 daily. Medical Branch pioglitazon 2020-0 Yes [id number] 30mg Take 1 Univers e 30 mg 3-13 tablet by ity of tablet 00:00: mouth [place] 00 daily. Medical Branch pioglitazon 2020-0 Yes [id number] 30mg Take 1 Univers e 30 mg 3-13 tablet by ity of tablet 00:00: mouth [place] 00 daily. [facility] pioglitazon 2020-0 Yes [id number] 30mg Take 1 Univers e 30 mg 3-13 tablet by ity of tablet 00:00: mouth [place] 00 daily. [facility] pioglitazon 2020-0 Yes [id number] 30mg Take 1 Univers e 30 mg 3-13 tablet by ity of tablet 00:00: mouth [place] 00 daily. Medical Branch pioglitazon 2020-0 Yes [id number] 30mg Take 1 Univers e 30 mg 3-13 tablet by ity of tablet 00:00: mouth [place] 00 daily. Medical Branch pioglitazon 2020-0 Yes [id number] 30mg Take 1 Univers e 30 mg 3-13 tablet by ity of tablet 00:00: mouth [place] 00 daily. Medical Branch pioglitazon 2020-0 Yes [id number] 30mg Take 1 Univers e 30 mg 3-13 tablet by ity of tablet 00:00: mouth [place] 00 daily. Medical Branch pioglitazon 2020-0 Yes [id number] 30mg Take 1 Univers e 30 mg 3-13 tablet by ity of tablet 00:00: mouth [place] 00 daily. Medical Branch pioglitazon 2020-0 Yes [id number] 30mg Take 1 Univers e 30 mg 3-13 tablet by ity of tablet 00:00: mouth [place] 00 daily. Medical Branch pioglitazon 2020-0 Yes [id number] 30mg Take 1 Univers e 30 mg 3-13 tablet by ity of tablet 00:00: mouth [place] 00 daily. Medical Branch pioglitazon 2020-0 Yes [id number] 30mg Take 1 Univers e 30 mg 3-13 tablet by ity of tablet 00:00: mouth [place] 00 daily. Medical Branch pioglitazon 2020-0 Yes [id number] 30mg Take 1 Univers e 30 mg 3-13 tablet by ity of tablet 00:00: mouth [place] 00 daily. Medical Branch pioglitazon 2020-0 Yes [id number] 30mg Take 1 Univers e 30 mg 3-13 tablet by ity of tablet 00:00: mouth [place] 00 daily. Medical Branch pioglitazon 2020-0 Yes [id number] 30mg Take 1 Univers e 30 mg 3-13 tablet by ity of tablet 00:00: mouth [place] 00 daily. Medical Branch pioglitazon 2020-0 Yes [id number] 30mg Take 1 Univers e 30 mg 3-13 tablet by ity of tablet 00:00: mouth [place] 00 daily. Medical Branch pioglitazon 2020-0 Yes [id number] 30mg Take 1 Univers e 30 mg 3-13 tablet by ity of tablet 00:00: mouth [place] 00 daily. Medical Branch pioglitazon 2020-0 Yes [id number] 30mg Take 1 Univers e 30 mg 3-13 tablet by ity of tablet 00:00: mouth [place] 00 daily. Medical Branch pioglitazon 2020-0 Yes [id number] 30mg Take 1 Univers e 30 mg 3-13 tablet by ity of tablet 00:00: mouth [place] 00 daily. Medical Branch pioglitazon 2020-0 Yes [id number] 30mg Take 1 Univers e 30 mg 3-13 tablet by ity of tablet 00:00: mouth [place] 00 daily. Medical Branch pioglitazon 2020-0 Yes [id number] 30mg Take 1 Univers e 30 mg 3-13 tablet by ity of tablet 00:00: mouth [place] 00 daily. Medical Branch pioglitazon 2020-0 Yes [id number] 30mg Take 1 Univers e 30 mg 3-13 tablet by ity of tablet 00:00: mouth [place] 00 daily. Medical Branch pioglitazon 2020-0 Yes [id number] 30mg Take 1 Univers e 30 mg 3-13 tablet by ity of tablet 00:00: mouth [place] 00 daily. Medical Branch lisinopril 2020-0 Yes [id number] 5mg Take 1 U nivers 5 mg tablet 3-11 tablet by ity of 00:00: mouth [place] 00 daily. Medical Branch lisinopril 2020-0 Yes [id number] 5mg Take 1 U nivers 5 mg tablet 3-11 tablet by ity of 00:00: mouth [place] 00 daily. Medical Branch lisinopril 2020-0 Yes [id number] 5mg Take 1 U nivers 5 mg tablet 3-11 tablet by ity of 00:00: mouth [place] 00 daily. Medical Branch lisinopril 2020-0 Yes [id number] 5mg Take 1 U nivers 5 mg tablet 3-11 tablet by ity of 00:00: mouth [place] 00 daily. Medical Branch lisinopril 2020-0 Yes [id number] 5mg Take 1 U nivers 5 mg tablet 3-11 tablet by ity of 00:00: mouth [place] 00 daily. Medical Branch lisinopril 2020-0 Yes [id number] 5mg Take 1 U nivers 5 mg tablet 3-11 tablet by ity of 00:00: mouth [place] 00 daily. Medical Branch lisinopril 2020-0 Yes [id number] 5mg Take 1 U nivers 5 mg tablet 3-11 tablet by ity of 00:00: mouth [place] 00 daily. Medical Branch lisinopril 2020-0 Yes [id number] 5mg Take 1 U nivers 5 mg tablet 3-11 tablet by ity of 00:00: mouth [place] 00 daily. Medical Branch lisinopril 2020-0 Yes [id number] 5mg Take 1 U nivers 5 mg tablet 3-11 tablet by ity of 00:00: mouth [place] 00 daily. Medical Branch lisinopril 2020-0 Yes [id number] 5mg Take 1 U nivers 5 mg tablet 3-11 tablet by ity of 00:00: mouth [place] 00 daily. Medical Branch lisinopril 2020-0 Yes [id number] 5mg Take 1 U nivers 5 mg tablet 3-11 tablet by ity of 00:00: mouth [place] 00 daily. Medical Branch lisinopril 2020-0 Yes [id number] 5mg Take 1 U nivers 5 mg tablet 3-11 tablet by ity of 00:00: mouth [place] 00 daily. Medical Branch lisinopril 2020-0 Yes [id number] 5mg Take 1 U nivers 5 mg tablet 3-11 tablet by ity of 00:00: mouth [place] 00 daily. Medical Branch lisinopril 2020-0 Yes [id number] 5mg Take 1 U nivers 5 mg tablet 3-11 tablet by ity of 00:00: mouth [place] 00 daily. Medical Branch lisinopril 2020-0 Yes [id number] 5mg Take 1 U nivers 5 mg tablet 3-11 tablet by ity of 00:00: mouth [place] 00 daily. Medical Branch lisinopril 2020-0 Yes [id number] 5mg Take 1 U nivers 5 mg tablet 3-11 tablet by ity of 00:00: mouth [place] 00 daily. Medical Branch lisinopril 2020-0 Yes [id number] 5mg Take 1 U nivers 5 mg tablet 3-11 tablet by ity of 00:00: mouth [place] 00 daily. Medical Branch lisinopril 2020-0 Yes [id number] 5mg Take 1 U nivers 5 mg tablet 3-11 tablet by ity of 00:00: mouth [place] 00 daily. Medical Branch lisinopril 2020-0 Yes [id number] 5mg Take 1 U nivers 5 mg tablet 3-11 tablet by ity of 00:00: mouth [place] 00 daily. Medical Branch lisinopril 2020-0 Yes [id number] 5mg Take 1 U nivers 5 mg tablet 3-11 tablet by ity of 00:00: mouth [place] 00 daily. Medical Branch lisinopril 2020-0 Yes [id number] 5mg Take 1 U nivers 5 mg tablet 3-11 tablet by ity of 00:00: mouth [place] 00 daily. Medical Branch lisinopril 2020-0 Yes [id number] 5mg Take 1 U nivers 5 mg tablet 3-11 tablet by ity of 00:00: mouth [place] 00 daily. Medical Branch lisinopril 2020-0 Yes [id number] 5mg Take 1 U nivers 5 mg tablet 3-11 tablet by ity of 00:00: mouth [place] 00 daily. Medical Branch lisinopril 2020-0 Yes [id number] 5mg Take 1 U nivers 5 mg tablet 3-11 tablet by ity of 00:00: mouth [place] 00 daily. Medical Branch lisinopril 2020-0 Yes [id number] 5mg Take 1 U nivers 5 mg tablet 3-11 tablet by ity of 00:00: mouth [place] 00 daily. Medical Branch lisinopril 2020-0 Yes [id number] 5mg Take 1 U nivers 5 mg tablet 3-11 tablet by ity of 00:00: mouth [place] 00 daily. Medical Branch lisinopril 2020-0 Yes [id number] 5mg Take 1 U nivers 5 mg tablet 3-11 tablet by ity of 00:00: mouth [place] 00 daily. Medical Branch lisinopril 2020-0 Yes [id number] 5mg Take 1 U nivers 5 mg tablet 3-11 tablet by ity of 00:00: mouth [place] 00 daily. Medical Branch lisinopril 2020-0 Yes [id number] 5mg Take 1 U nivers 5 mg tablet 3-11 tablet by ity of 00:00: mouth [place] 00 daily. Medical Branch lisinopril 2020-0 Yes [id number] 5mg Take 1 U nivers 5 mg tablet 3-11 tablet by ity of 00:00: mouth [place] 00 daily. Medical Branch lisinopril 2020-0 Yes [id number] 5mg Take 1 U nivers 5 mg tablet 3-11 tablet by ity of 00:00: mouth [place] 00 daily. Medical Branch lisinopril 2020-0 Yes [id number] 5mg Take 1 U nivers 5 mg tablet 3-11 tablet by ity of 00:00: mouth [place] 00 daily. Medical Branch metFORMIN 2020-0 2020- No 500mg Take 500 Un hunter 500 mg 3-05 03-05 mg by ity of tablet 21:37: 00:00 mouth 2 [place] 52 :00 (two) Medical times Branch daily with meals. metFORMIN 2020-0 2020- No 500mg Take 500 Un [place] 500 mg 3-05 03-05 mg by ity of tablet 21:37: 00:00 mouth 2 [place] 52 :00 (two) Medical times Branch daily with meals. hydrocortis 2020-0 Yes 10mg Take 10 mg Univers one 10 mg 3-05 by mouth ity of tablet 20:28: every [place] 24 morning. Medical Branch hydrocortis 2020-0 Yes 10mg Take 10 mg Univers one 10 mg 3-05 by mouth ity of tablet 20:28: every [place] 24 morning. Medical Branch hydrocortis 2020-0 Yes 10mg Take 10 mg Univers one 10 mg 3-05 by mouth ity of tablet 20:28: every [place] 24 morning. Medical Branch hydrocortis 2020-0 Yes 10mg Take 10 mg Univers one 10 mg 3-05 by mouth ity of tablet 20:28: every [place] 24 morning. Medical Branch hydrocortis 2020-0 Yes 10mg Take 10 mg Univers one 10 mg 3-05 by mouth ity of tablet 20:28: every [place] 24 morning. Medical Branch hydrocortis 2020-0 Yes 10mg Take 10 mg Univers one 10 mg 3-05 by mouth ity of tablet 20:28: every [place] 24 morning. Medical Branch hydrocortis 2020-0 Yes 10mg Take 10 mg Univers one 10 mg 3-05 by mouth ity of tablet 20:28: every [place] 24 morning. Medical Branch hydrocortis 2020-0 Yes 10mg Take 10 mg Univers one 10 mg 3-05 by mouth ity of tablet 20:28: every [place] 24 morning. Medical Branch hydrocortis 2020-0 Yes 10mg Take 10 mg Univers one 10 mg 3-05 by mouth ity of tablet 20:28: every [place] 24 morning. Medical Branch hydrocortis 2020-0 Yes 10mg Take 10 mg Univers one 10 mg 3-05 by mouth ity of tablet 20:28: every [place] 24 morning. Medical Branch hydrocortis 2020-0 Yes 10mg Take 10 mg Univers one 10 mg 3-05 by mouth ity of tablet 20:28: every [place] 24 morning. Medical Branch hydrocortis 2020-0 Yes 10mg Take 10 mg Univers one 10 mg 3-05 by mouth ity of tablet 20:28: every [place] 24 morning. Medical Branch hydrocortis 2020-0 Yes 10mg Take 10 mg Univers one 10 mg 3-05 by mouth ity of tablet 20:28: every [place] 24 morning. Medical Branch hydrocortis 2020-0 Yes 10mg Take 10 mg Univers one 10 mg 3-05 by mouth ity of tablet 20:28: every [place] 24 morning. Medical Branch hydrocortis 2020-0 Yes 10mg Take 10 mg Univers one 10 mg 3-05 by mouth ity of tablet 20:28: every [place] 24 morning. Medical Branch hydrocortis 2020-0 Yes 10mg Take 10 mg Univers one 10 mg 3-05 by mouth ity of tablet 20:28: every [place] 24 morning. Medical Branch hydrocortis 2020-0 Yes 10mg Take 10 mg Univers one 10 mg 3-05 by mouth ity of tablet 20:28: every [place] 24 morning. Medical Branch hydrocortis 2020-0 Yes 10mg Take 10 mg Univers one 10 mg 3-05 by mouth ity of tablet 20:28: every [place] 24 morning. Medical Branch hydrocortis 2020-0 Yes 10mg Take 10 mg Univers one 10 mg 3-05 by mouth ity of tablet 20:28: every [place] 24 morning. Medical Branch hydrocortis 2020-0 Yes 10mg Take 10 mg Univers one 10 mg 3-05 by mouth ity of tablet 20:28: every [place] 24 morning. Medical Branch hydrocortis 2020-0 Yes 10mg Take 10 mg Univers one 10 mg 3-05 by mouth ity of tablet 20:28: every [place] 24 morning. Medical Branch hydrocortis 2020-0 Yes 10mg Take 10 mg Univers one 10 mg 3-05 by mouth ity of tablet 20:28: every [place] 24 morning. Medical Branch hydrocortis 2020-0 Yes 10mg Take 10 mg Univers one 10 mg 3-05 by mouth ity of tablet 20:28: every [place] 24 morning. Medical Branch hydrocortis 2020-0 Yes 10mg Take 10 mg Univers one 10 mg 3-05 by mouth ity of tablet 20:28: every [place] 24 morning. Medical Branch hydrocortis 2020-0 Yes 10mg Take 10 mg Univers one 10 mg 3-05 by mouth ity of tablet 20:28: every [place] 24 morning. Medical Branch hydrocortis 2020-0 Yes 10mg Take 10 mg Univers one 10 mg 3-05 by mouth ity of tablet 20:28: every [place] 24 morning. Medical Branch hydrocortis 2020-0 Yes 10mg Take 10 mg Univers one 10 mg 3-05 by mouth ity of tablet 20:28: every [place] 24 morning. Medical Branch hydrocortis 2020-0 Yes 10mg Take 10 mg Univers one 10 mg 3-05 by mouth ity of tablet 20:28: every [place] 24 morning. Medical Branch hydrocortis 2020-0 Yes 10mg Take 10 mg Univers one 10 mg 3-05 by mouth ity of tablet 20:28: every [place] 24 morning. Medical Branch hydrocortis 2020-0 Yes 10mg Take 10 mg Univers one 10 mg 3-05 by mouth ity of tablet 20:28: every [place] 24 morning. Medical Branch hydrocortis 2020-0 Yes 10mg Take 10 mg Univers one 10 mg 3-05 by mouth ity of tablet 20:28: every [place] 24 morning. Medical Branch hydrocortis 2020-0 Yes 10mg Take 10 mg Univers one 10 mg 3-05 by mouth ity of tablet 20:28: every [place] 24 morning. Medical Branch hydrocortis 2020-0 Yes 10mg Take 10 mg Univers one 10 mg 3-05 by mouth ity of tablet 20:28: every [place] 24 morning. Medical Branch hydrocortis 2020-0 Yes 10mg Take 10 mg Univers one 10 mg 3-05 by mouth ity of tablet 20:28: every [place] 24 morning. Medical Branch hydrocortis 2020-0 Yes 10mg Take 10 mg Univers one 10 mg 3-05 by mouth ity of tablet 20:28: every [place] 24 morning. Medical Branch hydrocortis 2020-0 Yes 10mg Take 10 mg Univers one 10 mg 3-05 by mouth ity of tablet 20:28: every [place] 24 morning. Medical Branch hydrocortis 2020-0 Yes 10mg Take 10 mg Univers one 10 mg 3-05 by mouth ity of tablet 14:28: every [place] 24 morning. Medical Branch hydrocortis 2020-0 Yes 10mg Take 10 mg Univers one 10 mg 3-05 by mouth ity of tablet 14:28: every [place] 24 morning. Medical Branch hydrocortis 2020-0 Yes 10mg Take 10 mg Univers one 10 mg 3-05 by mouth ity of tablet 14:28: every [place] 24 morning. Medical Branch hydrocortis 2020-0 Yes 10mg Take 10 mg Univers one 10 mg 3-05 by mouth ity of tablet 14:28: every [place] 24 morning. Medical Branch metFORMIN 2020-0 Yes [id number] 1000mg Take 1 Univers 1,000 mg 3-05 tablet by ity of tablet 00:00: mouth [place] (two) Medical times Branch daily with meals. metFORMIN 2020-0 Yes [id number] 1000mg Take 1 Univers 1,000 mg 3-05 tablet by ity of tablet 00:00: mouth [place] (two) Medical times Branch daily with meals. metFORMIN 2020-0 Yes [id number] 1000mg Take 1 [facility] 1,000 mg 3-05 tablet by [facility] of tablet 00:00: mouth [place] (two) Medical times Branch daily with meals. metFORMIN 2020-0 Yes [id number] 1000mg Take 1 [facility] 1,000 mg 3-05 tablet by [facility] of tablet 00:00: mouth [place] (two) Medical times Branch daily with meals. metFORMIN 2020-0 Yes [id number] 1000mg Take 1 [facility] 1,000 mg 3-05 tablet by [facility] of tablet 00:00: mouth [place] (two) Medical times Branch daily with meals. metFORMIN 2020-0 Yes [id number] 1000mg Take 1 [facility] 1,000 mg 3-05 tablet by [facility] of tablet 00:00: mouth [place] (two) Medical times Branch daily with meals. metFORMIN 2020-0 Yes [id number] 1000mg Take 1 [facility] 1,000 mg 3-05 tablet by [facility] of tablet 00:00: mouth [place] (two) Medical times Branch daily with meals. metFORMIN 2020-0 Yes [id number] 1000mg Take 1 [facility] 1,000 mg 3-05 tablet by [facility] of tablet 00:00: mouth [place] (two) Medical times Branch daily with meals. metFORMIN 2020-0 Yes [id number] 1000mg Take 1 [facility] 1,000 mg 3-05 tablet by [facility] of tablet 00:00: mouth [place] (two) Medical times Branch daily with meals. metFORMIN 2020-0 Yes [id number] 1000mg Take 1 [facility] 1,000 mg 3-05 tablet by [facility] of tablet 00:00: mouth (two) Medical times Branch daily with meals. metFORMIN 2020-0 Yes [id number] 1000mg Take 1 [facility] 1,000 mg 3-05 tablet by [facility] of tablet 00:00: mouth (two) Medical times Branch daily with meals. metFORMIN 2020-0 Yes [id number] 1000mg Take 1 [facility] 1,000 mg 3-05 tablet by [facility] of tablet 00:00: mouth (two) Medical times Branch daily with meals. metFORMIN 2020-0 Yes [id number] 1000mg Take 1 [facility] 1,000 mg 3-05 tablet by [facility] of tablet 00:00: mouth (two) Medical times Branch daily with meals. pioglitazon 2020-0 Yes [id number] 15mg Take 1 [facility] e 15 mg 3-05 tablet by [facility] of tablet 00:00: mouth (two) Medical times Branch daily. metFORMIN 2020-0 Yes [id number] 1000mg Take 1 [facility] 1,000 mg 3-05 tablet by [facility] of tablet 00:00: mouth (two) Medical times Branch daily with meals. pioglitazon 2020-0 Yes [id number] 15mg Take 1 [facility] e 15 mg 3-05 tablet by [facility] of tablet 00:00: mouth (two) Medical times Branch daily. metFORMIN 2020-0 Yes [id number] 1000mg Take 1 [facility] 1,000 mg 3-05 tablet by [facility] of tablet 00:00: mouth (two) Medical times Branch daily with meals. pioglitazon 2020-0 Yes [id number] 15mg Take 1 [facility] e 15 mg 3-05 tablet by [facility] of tablet 00:00: mouth (two) Medical times Branch daily. metFORMIN 2020-0 Yes [id number] 1000mg Take 1 [facility] 1,000 mg 3-05 tablet by [facility] of tablet 00:00: mouth (two) Medical times Branch daily with meals. pioglitazon 2020-0 Yes [id number] 15mg Take 1 [facility] e 15 mg 3-05 tablet by [facility] of tablet 00:00: mouth (two) Medical times Branch daily. metFORMIN 2020-0 Yes [id number] 1000mg Take 1 [facility] 1,000 mg 3-05 tablet by [facility] of tablet 00:00: mouth (two) Medical times Branch daily with meals. pioglitazon 2020-0 Yes [id number] 15mg Take 1 [facility] e 15 mg 3-05 tablet by [facility] of tablet 00:00: mouth (two) Medical times Branch daily. metFORMIN 2020-0 Yes [id number] 1000mg Take 1 [facility] 1,000 mg 3-05 tablet by [facility] of tablet 00:00: mouth (two) Medical times Branch daily with meals. pioglitazon 2020-0 Yes [id number] 15mg Take 1 [facility] e 15 mg 3-05 tablet by [facility] of tablet 00:00: mouth (two) Medical times Branch daily. metFORMIN 2020-0 Yes [id number] 1000mg Take 1 [facility] 1,000 mg 3-05 tablet by [facility] of tablet 00:00: mouth (two) Medical times Branch daily with meals. pioglitazon 2020-0 Yes [id number] 15mg Take 1 [facility] e 15 mg 3-05 tablet by [facility] of tablet 00:00: mouth (two) Medical times Branch daily. metFORMIN 2020-0 Yes [id number] 1000mg Take 1 [facility] 1,000 mg 3-05 tablet by [facility] of tablet 00:00: mouth (two) Medical times Branch daily with meals. pioglitazon 2020-0 Yes [id number] 15mg Take 1 [facility] e 15 mg 3-05 tablet by [facility] of tablet 00:00: mouth (two) Medical times Branch daily. metFORMIN 2020-0 Yes [id number] 1000mg Take 1 [facility] 1,000 mg 3-05 tablet by [facility] of tablet 00:00: mouth (two) Medical times Branch daily with meals. pioglitazon 2020-0 Yes [id number] 15mg Take 1 [facility] e 15 mg 3-05 tablet by [facility] of tablet 00:00: mouth (two) Medical times Branch daily. metFORMIN 2020-0 Yes [id number] 1000mg Take 1 [facility] 1,000 mg 3-05 tablet by [facility] of tablet 00:00: mouth (two) Medical times Branch daily with meals. pioglitazon 2020-0 Yes [id number] 15mg Take 1 [facility] e 15 mg 3-05 tablet by [facility] of tablet 00:00: mouth (two) Medical times Branch daily. metFORMIN 2020-0 Yes [id number] 1000mg Take 1 [facility] 1,000 mg 3-05 tablet by [facility] of tablet 00:00: mouth (two) Medical times Branch daily with meals. pioglitazon 2020-0 Yes [id number] 15mg Take 1 [facility] e 15 mg 3-05 tablet by [facility] of tablet 00:00: mouth (two) Medical times Branch daily. metFORMIN 2020-0 Yes [id number] 1000mg Take 1 [facility] 1,000 mg 3-05 tablet by [facility] of tablet 00:00: mouth (two) Medical times Branch daily with meals. pioglitazon 2020-0 Yes [id number] 15mg Take 1 [facility] e 15 mg 3-05 tablet by [facility] of tablet 00:00: mouth (two) Medical times Branch daily. metFORMIN 2020-0 Yes [id number] 1000mg Take 1 [facility] 1,000 mg 3-05 tablet by [facility] of tablet 00:00: mouth (two) Medical times Branch daily with meals. metFORMIN 2020-0 Yes [id number] 1000mg Take 1 [facility] 1,000 mg 3-05 tablet by [facility] of tablet 00:00: mouth (two) Medical times Branch daily with meals. metFORMIN 2020-0 Yes [id number] 1000mg Take 1 [facility] 1,000 mg 3-05 tablet by [facility] of tablet 00:00: mouth (two) Medical times Branch daily with meals. metFORMIN 2020-0 Yes [id number] 1000mg Take 1 [facility] 1,000 mg 3-05 tablet by [facility] of tablet 00:00: mouth (two) Medical times Branch daily with meals. metFORMIN 2020-0 Yes [id number] 1000mg Take 1 [facility] 1,000 mg 3-05 tablet by [facility] of tablet 00:00: mouth (two) Medical times Branch daily with meals. metFORMIN 2020-0 Yes [id number] 1000mg Take 1 [facility] 1,000 mg 3-05 tablet by [facility] of tablet 00:00: mouth (two) Medical times Branch daily with meals. metFORMIN 2020-0 Yes [id number] 1000mg Take 1 [facility] 1,000 mg 3-05 tablet by [facility] of tablet 00:00: mouth [place] (two) Medical times Branch daily with meals. metFORMIN 2020-0 Yes [id number] 1000mg Take 1 [facility] 1,000 mg 3-05 tablet by [facility] of tablet 00:00: mouth [place] (two) Medical times Branch daily with meals. metFORMIN 2020-0 Yes [id number] 1000mg Take 1 [facility] 1,000 mg 3-05 tablet by [facility] of tablet 00:00: mouth [place] (two) Medical times Branch daily with meals. metFORMIN 2020-0 Yes [id number] 1000mg Take 1 [facility] 1,000 mg 3-05 tablet by [facility] of tablet 00:00: mouth [place] (two) Medical times Branch daily with meals. metFORMIN 2020-0 Yes [id number] 1000mg Take 1 [facility] 1,000 mg 3-05 tablet by [facility] of tablet 00:00: mouth [place] (two) Medical times Branch daily with meals. metFORMIN 2020-0 Yes [id number] 1000mg Take 1 [facility] 1,000 mg 3-05 tablet by [facility] of tablet 00:00: mouth [place] (two) Medical times Branch daily with meals. metFORMIN 2020-0 Yes [id number] 1000mg Take 1 [facility] 1,000 mg 3-05 tablet by [facility] of tablet 00:00: mouth [place] (two) Medical times Branch daily with meals. metFORMIN 2020-0 Yes [id number] 1000mg Take 1 [facility] 1,000 mg 3-05 tablet by [facility] of tablet 00:00: mouth [place] (two) Medical times Branch daily with meals. metFORMIN 2020-0 Yes [id number] 1000mg Take 1 [facility] 1,000 mg 3-05 tablet by [facility] of tablet 00:00: mouth [place] (two) Medical times Branch daily with meals. pioglitazon 2020-0 2020- No [id number] 15mg Take 1 [facility] e 15 mg 3-05 03-13 tablet by [facility] of tablet 00:00: 00:00 mouth 2 [place] 00 : (two) Medical times Branch daily. metFORMIN 2020-0 Yes 500mg Take 500 [facility] vers 500 mg 1-29 mg by it[facility] of tablet 20:33: mouth 2 [place] 19 (two) Medical times Branch daily with meals. metFORMIN 2020-0 Yes 500mg Take 500 [facility] vers 500 mg 1-29 mg by ity of tablet 20:33: mouth 2 [place] [address] [facility]) Medical times Branch daily with meals. metFORMIN 2020-0 Yes 500mg Take 500 [facility] vers 500 mg 1-29 mg by ity of tablet 20:33: mouth 2 [place] [address] (two) Medical times Branch daily with meals. metFORMIN 2020-0 Yes 500mg Take 500 [facility] vers 500 mg 1-29 mg by ity of tablet 20:33: mouth 2 [place] [address] (two) Medical times Branch daily with meals. metFORMIN 2020-0 Yes 500mg Take 500 [facility] vers 500 mg 1-29 mg by ity of tablet 20:33: mouth 2 [place] [address] (two) Medical times Branch daily with meals. metFORMIN 2020-0 Yes 500mg Take 500 [facility] vers 500 mg 1-29 mg by ity of tablet 20:33: mouth 2 [place] [address] (two) Medical times Branch daily with meals. metFORMIN 2020-0 Yes 500mg Take 500 [facility] vers 500 mg 1-29 mg by ity of tablet 20:33: mouth 2 [place] [address] (two) Medical times Branch daily with meals. metFORMIN 2020-0 Yes 500mg Take 500 [facility] vers 500 mg 1-29 mg by ity of tablet 20:33: mouth 2 [place] [address] ([facility]) Medical times Branch daily with meals. metFORMIN 2020-0 Yes 500mg Take 500 [facility] vers 500 mg 1-29 mg by ity of tablet 20:33: mouth 2 [place] [address] (two) Medical times Branch daily with meals. metFORMIN 2020-0 Yes 500mg Take 500 [facility] vers 500 mg 1-29 mg by ity of tablet 20:33: mouth 2 [place] [address] (two) Medical times Branch daily with meals. acetaminoph 2020-0 2020- No 650mg 650 mg, U nivers en 04-08 Oral, ity of (TYLENOL) 20:45: 19:56 ONCE, 1 [place] 650 00 :00 dose, Tue Medi cheryl mg 04/08/19 at Branch 1445, LE[place] tamsulosin 2020-0 2020- No .4mg Take 0.4 [facility] [place] 0.4 mg 24 -01 04-14 mg by ity of hr capsule 17:55: 00:00 mouth [place] 00 :00 daily. Medical Branch QUEtiapine 2020-0 2020- No 100mg Take 100 [facility] nivers 100 mg -01 04-14 mg by ity of tablet 17:55: 00:00 mouth at [place] 00 :00 bedtime. Medical Branch tamsulosin 2020-0 2020- No .4mg Take 0.4 [facility] [place] 0.4 mg 24 1-14 01-14 mg by ity of hr capsule 17:55: 00:00 mouth [place] 00 :00 daily. Medical Branch QUEtiapine 2019-0 2020- No 100mg Take 100 [facility] nivers 100 mg 1-14 01-14 mg by ity of tablet 17:55: 00:00 mouth at [place] 00 :00 bedtime. Medical Branch atorvastati 2020-0 Yes [id number] 80mg Take 1 [facility] n 80 mg 1-14 tablet by ity of tablet 00:00: mouth at [place] 00 bedtime. Medical Branch blood sugar 2020-0 Yes [id number] Use BID, [facility] diagnostic 1-14 DX E11.9 ity o f (BLOOD 00:00: (Brand [place] GLUCOSE 00 upon Medical TEST) strip insurance [employer] approval) gabapentin 2020-0 Yes [id number] 400mg Take 1 [facility] 400 mg 1-14 capsule by ity of capsule 00:00: mouth 3 [place] 00 (three) Medical times Branch daily. Pioglitazon 2019-0 Yes [id number] 1{tbl} Take 1 [facility] e-Metformin 1-14 tablet by ity of 15-1,000 mg 00:00: mouth 2 [place] 00 (two) Medical times Branch daily with meals. QUEtiapine 2020-0 Yes [id number] 100mg Take 1 [facility] 100 mg 1-14 tablet by ity of tablet 00:00: mouth at [place] 00 bedtime. Medical Branch SERTraline 2020-0 Yes [id number] 100mg Take 1 [facility] 100 mg 1-14 tablet by ity of tablet 00:00: mouth [place] 00 every Medical morning. Branch tamsulosin 2020-0 Yes [id number] .4mg Take 1 [facility] 0.4 mg 24 1-14 capsule by ity of hr capsule 00:00: mouth [place] 00 daily. Medical Branch traZODone 2020-0 Yes [id number] 50mg Take 1 [facility] [place] 50 mg 1-14 tablet by ity of tablet 00:00: mouth at [place] 00 bedtime. Medical Branch levETIRAcet 2020-0 Yes [id number] 500mg Take 1 [facility] am 500 mg 1-14 tablet by ity o f tablet 00:00: mouth 2 [place] 00 (two) Medical times Branch daily. atorvastati 2020-0 Yes [id number] 80mg Take 1 [facility] n 80 mg 1-14 tablet by ity of tablet 00:00: mouth at [place] 00 bedtime. Medical Branch blood sugar 2020-0 Yes [id number] Use BID, [facility] diagnostic 1-14 DX E11.9 ity o f (BLOOD 00:00: (Brand [place] GLUCOSE 00 upon Medical TEST) strip insurance [employer] approval) gabapentin 2020-0 Yes [id number] 400mg Take 1 [facility] 400 mg 1-14 capsule by ity of capsule 00:00: mouth 3 [place] 00 (three) Medical times Branch daily. Pioglitazon 2020-0 Yes [id number] 1{tbl} Take 1 [facility] e-Metformin 1-14 tablet by ity of 15-1,000 mg 00:00: mouth 2 [place] [facility] 00 (two) Medical times Branch daily with meals. QUEtiapine 2020-0 Yes [id number] 100mg Take 1 [facility] 100 mg 1-14 tablet by ity of tablet 00:00: mouth at [place] 00 bedtime. Medical Branch SERTraline 2020-0 Yes [id number] 100mg Take 1 [facility] 100 mg 1-14 tablet by ity of tablet 00:00: mouth [place] 00 every Medical morning. Branch tamsulosin 2020-0 Yes [id number] .4mg Take 1 [facility] 0.4 mg 24 1-14 capsule by ity of hr capsule 00:00: mouth [place] 00 daily. Medical Branch traZODone 2020-0 Yes [id number] 50mg Take 1 [facility] [place] 50 mg 1-14 tablet by ity of tablet 00:00: mouth at [place] 00 bedtime. Medical Branch levETIRAcet 2020-0 Yes [id number] 500mg Take 1 [facility] am 500 mg 1-14 tablet by ity o f tablet 00:00: mouth 2 [place] 00 (two) Medical times Branch daily. atorvastati 2020-0 Yes [id number] 80mg Take 1 [facility] n 80 mg 1-14 tablet by ity of tablet 00:00: mouth at [place] 00 bedtime. Medical Branch blood sugar 2019-0 Yes [id number] Use BID, [facility] diagnostic 1-14 DX E11.9 ity o f (BLOOD 00:00: (Brand [place] GLUCOSE 00 upon Medical TEST) strip insurance [employer] approval) gabapentin 2020-0 Yes [id number] 400mg Take 1 [facility] 400 mg 1-14 capsule by ity of capsule 00:00: mouth 3 [place] 00 (three) Medical times Branch daily. Pioglitazon 2020-0 Yes [id number] 1{tbl} Take 1 [facility] e-Metformin 1-14 tablet by ity of 15-1,000 mg 00:00: mouth 2 [place] 00 (two) Medical times Branch daily with meals. QUEtiapine 2020-0 Yes [id number] 100mg Take 1 [facility] 100 mg 1-14 tablet by ity of tablet 00:00: mouth at [place] 00 bedtime. Medical Branch SERTraline 2020-0 Yes [id number] 100mg Take 1 [facility] 100 mg 1-14 tablet by ity of tablet 00:00: mouth [place] 00 every Medical morning. Branch tamsulosin 2020-0 Yes [id number] .4mg Take 1 [facility] 0.4 mg 24 1-14 capsule by ity of hr capsule 00:00: mouth [place] 00 daily. Medical Branch traZODone 2020-0 Yes [id number] 50mg Take 1 [facility] [place] 50 mg 1-14 tablet by ity of tablet 00:00: mouth at [place] 00 bedtime. Medical Branch levETIRAcet 2020-0 Yes [id number] 500mg Take 1 [facility] am 500 mg 1-14 tablet by ity o f tablet 00:00: mouth 2 [place] 00 (two) Medical times Branch daily. atorvastati 2020-0 Yes [id number] 80mg Take 1 [facility] n 80 mg 1-14 tablet by ity of tablet 00:00: mouth at [place] 00 bedtime. Medical Branch blood sugar 2020-0 Yes [id number] Use BID, [facility] diagnostic 1-14 DX E11.9 ity o f (BLOOD 00:00: (Brand [place] GLUCOSE 00 upon Medical TEST) strip insurance [employer] approval) gabapentin 2020-0 Yes [id number] 400mg Take 1 [facility] 400 mg 1-14 capsule by ity of capsule 00:00: mouth 3 [place] 00 (three) Medical times Branch daily. Pioglitazon 2020-0 Yes [id number] 1{tbl} Take 1 [facility] e-Metformin 1-14 tablet by ity of 15-1,000 mg 00:00: mouth 2 [place] 00 (two) Medical times Branch daily with meals. QUEtiapine 2020-0 Yes [id number] 100mg Take 1 [facility] 100 mg 1-14 tablet by ity of tablet 00:00: mouth at [place] 00 bedtime. Medical Branch SERTraline 2020-0 Yes [id number] 100mg Take 1 [facility] 100 mg 1-14 tablet by ity of tablet 00:00: mouth [place] 00 every Medical morning. Branch tamsulosin 2020-0 Yes [id number] .4mg Take 1 [facility] 0.4 mg 24 1-14 capsule by ity of hr capsule 00:00: mouth [place] 00 daily. Medical Branch traZODone 2020-0 Yes [id number] 50mg Take 1 [facility] [place] 50 mg 1-14 tablet by ity of tablet 00:00: mouth at [place] 00 bedtime. Medical Branch levETIRAcet 2020-0 Yes [id number] 500mg Take 1 [facility] am 500 mg 1-14 tablet by ity o f tablet 00:00: mouth 2 [place] 00 (two) Medical times Branch daily. atorvastati 2020-0 Yes [id number] 80mg Take 1 [facility] n 80 mg 1-14 tablet by ity of tablet 00:00: mouth at [place] 00 bedtime. Medical Branch blood sugar 2020-0 Yes [id number] Use BID, [facility] diagnostic 1-14 DX E11.9 ity o f (BLOOD 00:00: (Brand [place] GLUCOSE 00 upon Medical TEST) strip insurance [employer] approval) gabapentin 2020-0 Yes [id number] 400mg Take 1 [facility] 400 mg 1-14 capsule by ity of capsule 00:00: mouth 3 [place] 00 (three) Medical times Branch daily. Pioglitazon 2020-0 Yes [id number] 1{tbl} Take 1 [facility] e-Metformin 1-14 tablet by ity of 15-1,000 mg 00:00: mouth 2 [place] 00 (two) Medical times Branch daily with meals. QUEtiapine 2020-0 Yes [id number] 100mg Take 1 [facility] 100 mg 1-14 tablet by ity of tablet 00:00: mouth at [place] 00 bedtime. Medical Branch SERTraline 2020-0 Yes [id number] 100mg Take 1 [facility] 100 mg 1-14 tablet by ity of tablet 00:00: mouth [place] 00 every Medical morning. Branch tamsulosin 2020-0 Yes [id number] .4mg Take 1 [facility] 0.4 mg 24 1-14 capsule by ity of hr capsule 00:00: mouth [place] 00 daily. Medical Branch traZODone 2020-0 Yes [id number] 50mg Take 1 [facility] [place] 50 mg 1-14 tablet by ity of tablet 00:00: mouth at [place] 00 bedtime. Medical Branch levETIRAcet 2020-0 Yes [id number] 500mg Take 1 [facility] am 500 mg 1-14 tablet by ity o f tablet 00:00: mouth 2 [place] 00 (two) Medical times Branch daily. atorvastati 2020-0 Yes [id number] 80mg Take 1 [facility] n 80 mg 1-14 tablet by ity of tablet 00:00: mouth at [place] 00 bedtime. Medical Branch blood sugar 2020-0 Yes [id number] Use BID, [facility] diagnostic 1-14 DX E11.9 ity o f (BLOOD 00:00: (Brand [place] GLUCOSE 00 upon Medical TEST) strip insurance [employer] approval) gabapentin 2020-0 Yes [id number] 400mg Take 1 [facility] 400 mg 1-14 capsule by ity of capsule 00:00: mouth 3 [place] 00 (three) Medical times Branch daily. Pioglitazon 2020-0 Yes [id number] 1{tbl} Take 1 [facility] e-Metformin 1-14 tablet by ity of 15-1,000 mg 00:00: mouth 2 [place] [facility] 00 (two) Medical times Branch daily with meals. QUEtiapine 2020-0 Yes [id number] 100mg Take 1 [facility] 100 mg 1-14 tablet by ity of tablet 00:00: mouth at [place] 00 bedtime. Medical Branch SERTraline 2020-0 Yes [id number] 100mg Take 1 [facility] 100 mg 1-14 tablet by ity of tablet 00:00: mouth [place] 00 every Medical morning. Branch tamsulosin 2020-0 Yes [id number] .4mg Take 1 [facility] 0.4 mg 24 1-14 capsule by ity of hr capsule 00:00: mouth [place] 00 daily. Medical Branch traZODone 2020-0 Yes [id number] 50mg Take 1 [facility] [place] 50 mg 1-14 tablet by ity of tablet 00:00: mouth at [place] 00 bedtime. Medical Branch levETIRAcet 2020-0 Yes [id number] 500mg Take 1 [facility] am 500 mg 1-14 tablet by ity o f tablet 00:00: mouth 2 [place] 00 (two) Medical times Branch daily. atorvastati 2020-0 Yes [id number] 80mg Take 1 [facility] n 80 mg 1-14 tablet by ity of tablet 00:00: mouth at [place] 00 bedtime. Medical Branch blood sugar 2020-0 Yes [id number] Use BID, [facility] diagnostic 1-14 DX E11.9 ity o f (BLOOD 00:00: (Brand [place] GLUCOSE 00 upon Medical TEST) strip insurance [employer] approval) gabapentin 2020-0 Yes [id number] 400mg Take 1 [facility] 400 mg 1-14 capsule by ity of capsule 00:00: mouth 3 [place] 00 (three) Medical times Branch daily. Pioglitazon 2020-0 Yes [id number] 1{tbl} Take 1 [facility] e-Metformin 1-14 tablet by ity of 15-1,000 mg 00:00: mouth 2 [place] [facility] 00 (two) Medical times Branch daily with meals. QUEtiapine 2020-0 Yes [id number] 100mg Take 1 [facility] 100 mg 1-14 tablet by ity of tablet 00:00: mouth at [place] 00 bedtime. Medical Branch SERTraline 2020-0 Yes [id number] 100mg Take 1 [facility] 100 mg 1-14 tablet by ity of tablet 00:00: mouth [place] 00 every Medical morning. Branch tamsulosin 2020-0 Yes [id number] .4mg Take 1 [facility] 0.4 mg 24 1-14 capsule by ity of hr capsule 00:00: mouth [place] 00 daily. Medical Branch traZODone 2020-0 Yes [id number] 50mg Take 1 [facility] [place] 50 mg 1-14 tablet by ity of tablet 00:00: mouth at [place] 00 bedtime. Medical Branch levETIRAcet 2020-0 Yes [id number] 500mg Take 1 [facility] am 500 mg 1-14 tablet by ity o f tablet 00:00: mouth 2 [place] 00 (two) Medical times Branch daily. atorvastati 2020-0 Yes [id number] 80mg Take 1 [facility] n 80 mg 1-14 tablet by ity of tablet 00:00: mouth at [place] 00 bedtime. Medical Branch blood sugar 2019-0 Yes [id number] Use BID, [facility] diagnostic 1-14 DX E11.9 ity o f (BLOOD 00:00: (Brand [place] GLUCOSE 00 upon Medical TEST) strip insurance [employer] approval) gabapentin 2020-0 Yes [id number] 400mg Take 1 [facility] 400 mg 1-14 capsule by ity of capsule 00:00: mouth 3 [place] 00 (three) Medical times Branch daily. Pioglitazon 2020-0 Yes [id number] 1{tbl} Take 1 [facility] e-Metformin 1-14 tablet by ity of 15-1,000 mg 00:00: mouth 2 [place] [facility] 00 (two) Medical times Branch daily with meals. QUEtiapine 2020-0 Yes [id number] 100mg Take 1 [facility] 100 mg 1-14 tablet by ity of tablet 00:00: mouth at [place] 00 bedtime. Medical Branch SERTraline 2020-0 Yes [id number] 100mg Take 1 [facility] 100 mg 1-14 tablet by ity of tablet 00:00: mouth [place] 00 every Medical morning. Branch tamsulosin 2020-0 Yes [id number] .4mg Take 1 [facility] 0.4 mg 24 1-14 capsule by ity of hr capsule 00:00: mouth [place] 00 daily. Medical Branch traZODone 2020-0 Yes [id number] 50mg Take 1 [facility] [place] 50 mg 1-14 tablet by ity of tablet 00:00: mouth at [place] 00 bedtime. Medical Branch levETIRAcet 2020-0 Yes [id number] 500mg Take 1 [facility] am 500 mg 1-14 tablet by ity o f tablet 00:00: mouth 2 [place] 00 (two) Medical times Branch daily. atorvastati 2020-0 Yes [id number] 80mg Take 1 [facility] n 80 mg 1-14 tablet by ity of tablet 00:00: mouth at [place] 00 bedtime. Medical Branch blood sugar 2020-0 Yes [id number] Use BID, [facility] diagnostic 1-14 DX E11.9 ity o f (BLOOD 00:00: (Brand [place] GLUCOSE 00 upon Medical TEST) strip insurance [employer] approval) gabapentin 2020-0 Yes [id number] 400mg Take 1 [facility] 400 mg 1-14 capsule by ity of capsule 00:00: mouth 3 [place] 00 (three) Medical times Branch daily. Pioglitazon 2020-0 Yes [id number] 1{tbl} Take 1 [facility] e-Metformin 1-14 tablet by ity of 15-1,000 mg 00:00: mouth 2 [place] [facility] 00 (two) Medical times Branch daily with meals. QUEtiapine 2020-0 Yes [id number] 100mg Take 1 [facility] 100 mg 1-14 tablet by ity of tablet 00:00: mouth at [place] 00 bedtime. Medical Branch SERTraline 2020-0 Yes [id number] 100mg Take 1 [facility] 100 mg 1-14 tablet by ity of tablet 00:00: mouth [place] 00 every Medical morning. Branch tamsulosin 2020-0 Yes [id number] .4mg Take 1 [facility] 0.4 mg 24 1-14 capsule by ity of hr capsule 00:00: mouth [place] 00 daily. Medical Branch traZODone 2020-0 Yes [id number] 50mg Take 1 [facility] [place] 50 mg 1-14 tablet by ity of tablet 00:00: mouth at [place] 00 bedtime. Medical Branch levETIRAcet 2020-0 Yes [id number] 500mg Take 1 [facility] am 500 mg 1-14 tablet by ity o f tablet 00:00: mouth 2 [place] 00 (two) Medical times Branch daily. atorvastati 2020-0 Yes [id number] 80mg Take 1 [facility] n 80 mg 1-14 tablet by ity of tablet 00:00: mouth at [place] 00 bedtime. Medical Branch blood sugar 2020-0 Yes [id number] Use BID, [facility] diagnostic 1-14 DX E11.9 ity o f (BLOOD 00:00: (Brand [place] GLUCOSE 00 upon Medical TEST) strip insurance [employer] approval) gabapentin 2020-0 Yes [id number] 400mg Take 1 [facility] 400 mg 1-14 capsule by ity of capsule 00:00: mouth 3 [place] 00 (three) Medical times Branch daily. Pioglitazon 2020-0 Yes [id number] 1{tbl} Take 1 [facility] e-Metformin 1-14 tablet by ity of 15-1,000 mg 00:00: mouth 2 [place] [facility] 00 (two) Medical times Branch daily with meals. QUEtiapine 2020-0 Yes [id number] 100mg Take 1 [facility] 100 mg 1-14 tablet by ity of tablet 00:00: mouth at [place] 00 bedtime. Medical Branch SERTraline 2020-0 Yes [id number] 100mg Take 1 [facility] 100 mg 1-14 tablet by ity of tablet 00:00: mouth [place] 00 every Medical morning. Branch tamsulosin 2020-0 Yes [id number] .4mg Take 1 [facility] 0.4 mg 24 1-14 capsule by ity of hr capsule 00:00: mouth [place] 00 daily. Medical Branch traZODone 2020-0 Yes [id number] 50mg Take 1 [facility] [place] 50 mg 1-14 tablet by ity of tablet 00:00: mouth at [place] 00 bedtime. Medical Branch levETIRAcet 2020-0 Yes [id number] 500mg Take 1 [facility] am 500 mg 1-14 tablet by ity o f tablet 00:00: mouth 2 [place] 00 (two) Medical times Branch daily. atorvastati 2020-0 Yes [id number] 80mg Take 1 [facility] n 80 mg 1-14 tablet by ity of tablet 00:00: mouth at [place] 00 bedtime. Medical Branch blood sugar 2020-0 Yes [id number] Use BID, [facility] diagnostic 1-14 DX E11.9 ity o f (BLOOD 00:00: (Brand [place] GLUCOSE 00 upon Medical TEST) strip insurance [employer] approval) gabapentin 2020-0 Yes [id number] 400mg Take 1 [facility] 400 mg 1-14 capsule by ity of capsule 00:00: mouth 3 [place] (three) Medical times Branch daily. Pioglitazon 2020-0 Yes [id number] 1{tbl} Take 1 [facility] e-Metformin 1-14 tablet by [facility] of 15-1,000 mg 00:00: mouth 2 [place] TM24 00 (two) Medical times Branch daily with meals. QUEtiapine 2020-0 Yes [id number] 100mg Take 1 [facility] 100 mg 1-14 tablet by [facility] of tablet 00:00: mouth at [place] 00 bedtime. [facility] SERTraline 2020-0 Yes [id number] 100mg Take 1 [facility] 100 mg 1-14 tablet by [facility] of tablet 00:00: mouth [place] 00 every Medical morning. Branch tamsulosin 2020-0 Yes [id number] .4mg Take 1 [facility] 0.4 mg 24 1-14 capsule by [facility] of hr capsule 00:00: mouth [place] 00 daily. Medical Branch traZODone 2020-0 Yes [id number] 50mg Take 1 [facility] 50 mg 1-14 tablet by [facility] of tablet 00:00: mouth at [place] 00 bedtime. Medical [facility] levETIRAcet 2020-0 Yes [id number] 500mg Take 1 [facility] am 500 mg 1-14 tablet by [facility] o f tablet 00:00: mouth 2 [place] 00 (two) Medical times Branch daily. atorvastati 2020-0 Yes [id number] 80mg Take 1 [facility] n 80 mg 1-14 tablet by [facility] of tablet 00:00: mouth at [place] 00 bedtime. [facility] blood sugar 2020-0 Yes [id number] Use BID, [facility] diagnostic 1-14 DX E11.9 it[facility] o f (BLOOD 00:00: (Brand [place] GLUCOSE 00 upon Medical TEST) strip insurance [employer] approval) gabapentin 2020-0 Yes [id number] 400mg Take 1 [facility] 400 mg 1-14 capsule by [facility] of capsule 00:00: mouth 3 [place] 00 (three) Medical times Branch daily. Pioglitazon 2020-0 Yes [id number] 1{tbl} Take 1 [facility] e-Metformin 1-14 tablet by [facility] of 15-1,000 mg 00:00: mouth 2 [place] TM24 00 (two) Medical times Branch daily with meals. QUEtiapine 2020-0 Yes [id number] 100mg Take 1 [facility] 100 mg 1-14 tablet by [facility] of tablet 00:00: mouth at [place] 00 bedtime. Medical [facility] SERTraline 2020-0 Yes [id number] 100mg Take 1 [facility] 100 mg 1-14 tablet by [facility] of tablet 00:00: mouth [place] 00 every Medical morning. Branch tamsulosin 2020-0 Yes [id number] .4mg Take 1 [facility] 0.4 mg 24 1-14 capsule by [facility] of hr capsule 00:00: mouth [place] 00 daily. Medical [facility] traZODone 2020-0 Yes [id number] 50mg Take 1 [facility] 50 mg 1-14 tablet by [facility] of tablet 00:00: mouth at [place] 00 bedtime. Medical [facility] levETIRAcet 2020-0 Yes [id number] 500mg Take 1 [facility] am 500 mg 1-14 tablet by it[facility] o f tablet 00:00: mouth 2 [place] 00 (two) Medical times Branch daily. atorvastati 2020-0 Yes [id number] 80mg Take 1 [facility] n 80 mg 1-14 tablet by [facility] of tablet 00:00: mouth at [place] 00 bedtime. Medical [facility] blood sugar 2020-0 Yes [id number] Use BID, [facility] diagnostic 1-14 DX E11.9 [facility] o f (BLOOD 00:00: (Brand [place] GLUCOSE 00 upon Medical TEST) strip insurance [employer] approval) gabapentin 2020-0 Yes [id number] 400mg Take 1 [facility] 400 mg 1-14 capsule by [facility] of capsule 00:00: mouth 3 [place] 00 (three) Medical times Branch daily. Pioglitazon 2020-0 Yes [id number] 1{tbl} Take 1 [facility] e-Metformin 1-14 tablet by [facility] of 15-1,000 mg 00:00: mouth 2 [place] TM24 00 (two) Medical times Branch daily with meals. QUEtiapine 2020-0 Yes [id number] 100mg Take 1 [facility] 100 mg 1-14 tablet by [facility] of tablet 00:00: mouth at [place] 00 bedtime. Medical [facility] SERTraline 2020-0 Yes [id number] 100mg Take 1 [facility] 100 mg 1-14 tablet by [facility] of tablet 00:00: mouth [place] 00 every Medical morning. Branch tamsulosin 2020-0 Yes [id number] .4mg Take 1 [facility] 0.4 mg 24 1-14 capsule by [facility] of hr capsule 00:00: mouth [place] 00 daily. Medical [facility] traZODone 2020-0 Yes [id number] 50mg Take 1 [facility] [place] 50 mg 1-14 tablet by [facility] of tablet 00:00: mouth at [place] 00 bedtime. Medical [facility] levETIRAcet 2020-0 Yes [id number] 500mg Take 1 [facility] am 500 mg 1-14 tablet by it[facility] o f tablet 00:00: mouth 2 [place] 00 (two) Medical times Branch daily. atorvastati 2020-0 Yes [id number] 80mg Take 1 [facility] n 80 mg 1-14 tablet by [facility] of tablet 00:00: mouth at [place] 00 bedtime. Medical Branch blood sugar 2020-0 Yes [id number] Use BID, [facility] diagnostic 1-14 DX E11.9 it[facility] o f (BLOOD 00:00: (Brand [place] GLUCOSE 00 upon Medical TEST) strip insurance [employer] approval) gabapentin 2020-0 Yes [id number] 400mg Take 1 [facility] 400 mg 1-14 capsule by [facility] of capsule 00:00: mouth 3 [place] 00 (three) Medical times Branch daily. Pioglitazon 2020-0 Yes [id number] 1{tbl} Take 1 [facility] e-Metformin 1-14 tablet by [facility] of 15-1,000 mg 00:00: mouth 2 [place] TM24 00 (two) Medical times Branch daily with meals. QUEtiapine 2020-0 Yes [id number] 100mg Take 1 [facility] 100 mg 1-14 tablet by [facility] of tablet 00:00: mouth at [place] 00 bedtime. Medical [facility] SERTraline 2020-0 Yes [id number] 100mg Take 1 [facility] 100 mg 1-14 tablet by [facility] of tablet 00:00: mouth [place] 00 every Medical morning. Branch tamsulosin 2020-0 Yes [id number] .4mg Take 1 [facility] 0.4 mg 24 1-14 capsule by [facility] of hr capsule 00:00: mouth [place] 00 daily. Medical [facility] traZODone 2020-0 Yes [id number] 50mg Take 1 [facility] [place] 50 mg 1-14 tablet by [facility] of tablet 00:00: mouth at [place] 00 bedtime. Medical [facility] levETIRAcet 2020-0 Yes [id number] 500mg Take 1 [facility] am 500 mg 1-14 tablet by ity o f tablet 00:00: mouth 2 [place] 00 (two) Medical times Branch daily. atorvastati 2020-0 Yes [id number] 80mg Take 1 [facility] n 80 mg 1-14 tablet by [facility] of tablet 00:00: mouth at [place] 00 bedtime. Medical [facility] blood sugar 2020-0 Yes [id number] Use BID, [facility] diagnostic 1-14 DX E11.9 it[facility] o f (BLOOD 00:00: (Brand [place] GLUCOSE 00 upon Medical TEST) strip insurance [employer] approval) gabapentin 2020-0 Yes [id number] 400mg Take 1 [facility] 400 mg 1-14 capsule by [facility] of capsule 00:00: mouth 3 [place] 00 (three) Medical times Branch daily. Pioglitazon 2020-0 Yes [id number] 1{tbl} Take 1 [facility] e-Metformin 1-14 tablet by ity of 15-1,000 mg 00:00: mouth 2 [place] TM24 00 (two) Medical times Branch daily with meals. QUEtiapine 2020-0 Yes [id number] 100mg Take 1 [facility] 100 mg 1-14 tablet by [facility] of tablet 00:00: mouth at [place] 00 bedtime. Medical [facility] SERTraline 2020-0 Yes [id number] 100mg Take 1 [facility] 100 mg 1-14 tablet by [facility] of tablet 00:00: mouth [place] 00 every Medical morning. Branch tamsulosin 2020-0 Yes [id number] .4mg Take 1 [facility] 0.4 mg 24 1-14 capsule by [facility] of hr capsule 00:00: mouth [place] 00 daily. Medical [facility] traZODone 2020-0 Yes [id number] 50mg Take 1 [facility] [place] 50 mg 1-14 tablet by [facility] of tablet 00:00: mouth at [place] 00 bedtime. Medical [facility] levETIRAcet 2020-0 Yes [id number] 500mg Take 1 [facility] am 500 mg 1-14 tablet by ity o f tablet 00:00: mouth 2 [place] 00 (two) Medical times Branch daily. atorvastati 2020-0 Yes [id number] 80mg Take 1 [facility] n 80 mg 1-14 tablet by [facility] of tablet 00:00: mouth at [place] 00 bedtime. Medical [facility] blood sugar 2020-0 Yes [id number] Use BID, [facility] diagnostic 1-14 DX E11.9 it[facility] o f (BLOOD 00:00: (Brand [place] GLUCOSE 00 upon Medical TEST) strip insurance [employer] approval) gabapentin 2020-0 Yes [id number] 400mg Take 1 [facility] 400 mg 1-14 capsule by it[facility] of capsule 00:00: mouth 3 [place] (three) Medical times Branch daily. Pioglitazon 2020-0 Yes [id number] 1{tbl} Take 1 [facility] e-Metformin 1-14 tablet by ity of 15-1,000 mg 00:00: mouth 2 [place] TM24 00 (two) Medical times Branch daily with meals. QUEtiapine 2020-0 Yes [id number] 100mg Take 1 [facility] 100 mg 1-14 tablet by ity of tablet 00:00: mouth at [place] 00 bedtime. Medical [facility] SERTraline 2020-0 Yes [id number] 100mg Take 1 [facility] 100 mg 1-14 tablet by [facility] of tablet 00:00: mouth [place] 00 every Medical morning. Branch tamsulosin 2020-0 Yes [id number] .4mg Take 1 [facility] 0.4 mg 24 1-14 capsule by [facility] of hr capsule 00:00: mouth [place] 00 daily. Medical [facility] traZODone 2020-0 Yes [id number] 50mg Take 1 [facility] [place] 50 mg 1-14 tablet by [facility] of tablet 00:00: mouth at [place] 00 bedtime. Medical [facility] levETIRAcet 2020-0 Yes [id number] 500mg Take 1 [facility] am 500 mg 1-14 tablet by ity o f tablet 00:00: mouth 2 [place] 00 (two) Medical times Branch daily. atorvastati 2020-0 Yes [id number] 80mg Take 1 [facility] n 80 mg 1-14 tablet by [facility] of tablet 00:00: mouth at [place] 00 bedtime. Medical Branch blood sugar 2020-0 Yes [id number] Use BID, [facility] diagnostic 1-14 DX E11.9 it[facility] o f (BLOOD 00:00: (Brand [place] GLUCOSE 00 upon Medical TEST) strip insurance [employer] approval) gabapentin 2020-0 Yes [id number] 400mg Take 1 [facility] 400 mg 1-14 capsule by [facility] of capsule 00:00: mouth 3 (three) Medical times Branch daily. QUEtiapine 2020-0 Yes [id number] 100mg Take 1 [facility] 100 mg 1-14 tablet by [facility] of tablet 00:00: mouth at [place] 00 bedtime. Medical [facility] SERTraline 2020-0 Yes [id number] 100mg Take 1 [facility] 100 mg 1-14 tablet by [facility] of tablet 00:00: mouth [place] 00 every Medical morning. Branch tamsulosin 2020-0 Yes [id number] .4mg Take 1 [facility] 0.4 mg 24 1-14 capsule by [facility] of hr capsule 00:00: mouth daily. Medical [facility] traZODone 2020-0 Yes [id number] 50mg Take 1 [facility] 50 mg 1-14 tablet by [facility] of tablet 00:00: mouth at [place] 00 bedtime. Medical [facility] levETIRAcet 2020-0 Yes [id number] 500mg Take 1 [facility] am 500 mg 1-14 tablet by ity o f tablet 00:00: mouth 2 (two) Medical times Branch daily. atorvastati 2020-0 Yes [id number] 80mg Take 1 [facility] n 80 mg 1-14 tablet by [facility] of tablet 00:00: mouth at [place] 00 bedtime. Medical Branch blood sugar 2020-0 Yes [id number] Use BID, [facility] diagnostic 1-14 DX E11.9 it[facility] o f (BLOOD 00:00: (Brand [place] GLUCOSE 00 upon Medical TEST) strip insurance [employer] approval) gabapentin 2020-0 Yes [id number] 400mg Take 1 [facility] 400 mg 1-14 capsule by ity of capsule 00:00: mouth 3 (three) Medical times Branch daily. QUEtiapine 2020-0 Yes [id number] 100mg Take 1 [facility] 100 mg 1-14 tablet by [facility]y of tablet 00:00: mouth at [place] 00 bedtime. Medical Branch SERTraline 2020-0 Yes [id number] 100mg Take 1 [facility] 100 mg 1-14 tablet by ity of tablet 00:00: mouth [place] 00 every Medical morning. Branch tamsulosin 2020-0 Yes [id number] .4mg Take 1 [facility] 0.4 mg 24 1-14 capsule by ity of hr capsule 00:00: mouth [place] 00 daily. Medical [facility] traZODone 2020-0 Yes [id number] 50mg Take 1 [facility] 50 mg 1-14 tablet by [facility] of tablet 00:00: mouth at [place] 00 bedtime. Medical [facility] levETIRAcet 2020-0 Yes [id number] 500mg Take 1 [facility] am 500 mg 1-14 tablet by ity o f tablet 00:00: mouth 2 (two) Medical times Branch daily. atorvastati 2020-0 Yes [id number] 80mg Take 1 [facility] n 80 mg 1-14 tablet by [facility]y of tablet 00:00: mouth at [place] bedtime. Medical [facility] blood sugar 2020-0 Yes [id number] Use BID, [facility] diagnostic 1-14 DX E11.9 it[facility] o f (BLOOD 00:00: (Brand [place] GLUCOSE 00 upon Medical TEST) strip insurance [employer] approval) gabapentin 2020-0 Yes [id number] 400mg Take 1 [facility] 400 mg 1-14 capsule by ity of capsule 00:00: mouth 3 (three) Medical times Branch daily. QUEtiapine 2020-0 Yes [id number] 100mg Take 1 [facility] 100 mg 1-14 tablet by ity of tablet 00:00: mouth at [place] 00 bedtime. Medical [facility] SERTraline 2020-0 Yes [id number] 100mg Take 1 [facility] 100 mg 1-14 tablet by ity of tablet 00:00: mouth [place] 00 every Medical morning. Branch tamsulosin 2020-0 Yes [id number] .4mg Take 1 [facility] 0.4 mg 24 1-14 capsule by ity of hr capsule 00:00: mouth 00 daily. Medical Branch traZODone 2020-0 Yes [id number] 50mg Take 1 [facility] 50 mg 1-14 tablet by [facility] of tablet 00:00: mouth at [place] [address] bedtime. Medical Branch levETIRAcet 2020-0 Yes [id number] 500mg Take 1 [facility] am 500 mg 1-14 tablet by ity o f tablet 00:00: mouth 2 [place] 00 (two) Medical times Branch daily. atorvastati 2020-0 Yes [id number] 80mg Take 1 [facility] n 80 mg 1-14 tablet by ity of tablet 00:00: mouth at [place] 00 bedtime. Medical [facility] blood sugar 2020-0 Yes [id number] Use BID, [facility] diagnostic 1-14 DX E11.9 it[facility] o f (BLOOD 00:00: (Brand [place] GLUCOSE 00 upon Medical TEST) strip insurance [employer] approval) gabapentin 2020-0 Yes [id number] 400mg Take 1 [facility] 400 mg 1-14 capsule by ity of capsule 00:00: mouth 3 (three) Medical times Branch daily. QUEtiapine 2020-0 Yes [id number] 100mg Take 1 [facility] 100 mg 1-14 tablet by ity of tablet 00:00: mouth at [place] 00 bedtime. Medical [facility] SERTraline 2020-0 Yes [id number] 100mg Take 1 [facility] 100 mg 1-14 tablet by ity of tablet 00:00: mouth 00 every Medical morning. Branch tamsulosin 2020-0 Yes [id number] .4mg Take 1 [facility] 0.4 mg 24 1-14 capsule by ity of hr capsule 00:00: mouth [place] 00 daily. Medical [facility] traZODone 2020-0 Yes [id number] 50mg Take 1 [facility] 50 mg 1-14 tablet by [facility] of tablet 00:00: mouth at [place] 00 bedtime. Medical [facility] levETIRAcet 2020-0 Yes [id number] 500mg Take 1 [facility] am 500 mg 1-14 tablet by it[facility] o f tablet 00:00: mouth 2 (two) Medical times Branch daily. atorvastati 2020-0 Yes [id number] 80mg Take 1 [facility] n 80 mg 1-14 tablet by it[facility] of tablet 00:00: mouth at [place] 00 bedtime. Medical [facility] blood sugar 2020-0 Yes [id number] Use BID, [facility] diagnostic 1-14 DX E11.9 it[facility] o f (BLOOD 00:00: (Brand [place] GLUCOSE 00 upon Medical TEST) strip insurance [employer] approval) gabapentin 2020-0 Yes [id number] 400mg Take 1 [facility] 400 mg 1-14 capsule by ity of capsule 00:00: mouth 3 (three) Medical times Branch daily. QUEtiapine 2020-0 Yes [id number] 100mg Take 1 [facility] 100 mg 1-14 tablet by ity of tablet 00:00: mouth at [place] 00 bedtime. Medical [facility] SERTraline 2020-0 Yes [id number] 100mg Take 1 [facility] 100 mg 1-14 tablet by ity of tablet 00:00: mouth [place] 00 every Medical morning. Branch tamsulosin 2020-0 Yes [id number] .4mg Take 1 [facility] 0.4 mg 24 1-14 capsule by ity of hr capsule 00:00: mouth [place] 00 daily. [facility] traZODone 2020-0 Yes [id number] 50mg Take 1 [facility] 50 mg 1-14 tablet by [facility] of tablet 00:00: mouth at [place] 00 bedtime. Medical [facility] levETIRAcet 2020-0 Yes [id number] 500mg Take 1 [facility] am 500 mg 1-14 tablet by ity o f tablet 00:00: mouth 2 (two) Medical times Branch daily. atorvastati 2020-0 Yes [id number] 80mg Take 1 [facility] n 80 mg 1-14 tablet by ity of tablet 00:00: mouth at [place] 00 bedtime. Medical [facility] blood sugar 2020-0 Yes [id number] Use BID, [facility] diagnostic 1-14 DX E11.9 it[facility] o f (BLOOD 00:00: (Brand [place] GLUCOSE 00 upon Medical TEST) strip insurance [employer] approval) gabapentin 2020-0 Yes [id number] 400mg Take 1 [facility] 400 mg 1-14 capsule by ity of capsule 00:00: mouth 3 (three) Medical times Branch daily. QUEtiapine 2020-0 Yes [id number] 100mg Take 1 [facility] 100 mg 1-14 tablet by ity of tablet 00:00: mouth at [place] 00 bedtime. Medical [facility] SERTraline 2020-0 Yes [id number] 100mg Take 1 [facility] 100 mg 1-14 tablet by ity of tablet 00:00: mouth [place] 00 every Medical morning. Branch tamsulosin 2020-0 Yes [id number] .4mg Take 1 [facility] 0.4 mg 24 1-14 capsule by ity of hr capsule 00:00: mouth [place] 00 daily. [facility] traZODone 2020-0 Yes [id number] 50mg Take 1 [facility] 50 mg 1-14 tablet by [facility] of tablet 00:00: mouth at [place] [address] bedtime. Medical Branch levETIRAcet 2020-0 Yes [id number] 500mg Take 1 [facility] am 500 mg 1-14 tablet by ity o f tablet 00:00: mouth 2 00 (two) Medical times Branch daily. atorvastati 2020-0 Yes [id number] 80mg Take 1 [facility] n 80 mg 1-14 tablet by ity of tablet 00:00: mouth at [place] 00 bedtime. Medical [facility] blood sugar 2020-0 Yes [id number] Use BID, [facility] diagnostic 1-14 DX E11.9 it[facility] o f (BLOOD 00:00: (Brand [place] GLUCOSE 00 upon Medical TEST) strip insurance [employer] approval) gabapentin 2020-0 Yes [id number] 400mg Take 1 [facility] 400 mg 1-14 capsule by ity of capsule 00:00: mouth 3 (three) Medical times Branch daily. QUEtiapine 2020-0 Yes [id number] 100mg Take 1 [facility] 100 mg 1-14 tablet by ity of tablet 00:00: mouth at [place] 00 bedtime. Medical [facility] SERTraline 2020-0 Yes [id number] 100mg Take 1 [facility] 100 mg 1-14 tablet by ity of tablet 00:00: mouth [place] 00 every Medical morning. Branch tamsulosin 2020-0 Yes [id number] .4mg Take 1 [facility] 0.4 mg 24 1-14 capsule by ity of hr capsule 00:00: mouth [place] 00 daily. [facility] traZODone 2020-0 Yes [id number] 50mg Take 1 [facility] 50 mg 1-14 tablet by [facility] of tablet 00:00: mouth at [place] 00 bedtime. Medical [facility] levETIRAcet 2020-0 Yes [id number] 500mg Take 1 [facility] am 500 mg 1-14 tablet by ity o f tablet 00:00: mouth 2 (two) Medical times Branch daily. atorvastati 2020-0 Yes [id number] 80mg Take 1 [facility] n 80 mg 1-14 tablet by ity of tablet 00:00: mouth at [place] 00 bedtime. Medical [facility] blood sugar 2020-0 Yes [id number] Use BID, [facility] diagnostic 1-14 DX E11.9 it[facility] o f (BLOOD 00:00: (Brand [place] GLUCOSE 00 upon Medical TEST) strip insurance [employer] approval) gabapentin 2020-0 Yes [id number] 400mg Take 1 [facility] 400 mg 1-14 capsule by ity of capsule 00:00: mouth 3 [place] 00 (three) Medical times Branch daily. QUEtiapine 2020-0 Yes [id number] 100mg Take 1 [facility] 100 mg 1-14 tablet by ity of tablet 00:00: mouth at [place] 00 bedtime. Medical [facility] SERTraline 2020-0 Yes [id number] 100mg Take 1 [facility] 100 mg 1-14 tablet by ity of tablet 00:00: mouth [place] 00 every Medical morning. Branch tamsulosin 2020-0 Yes [id number] .4mg Take 1 [facility] 0.4 mg 24 1-14 capsule by ity of hr capsule 00:00: mouth [place] 00 daily. [facility] traZODone 2020-0 Yes [id number] 50mg Take 1 [facility] [place] 50 mg 1-14 tablet by [facility] of tablet 00:00: mouth at [place] [address] bedtime. Medical Branch levETIRAcet 2020-0 Yes [id number] 500mg Take 1 [facility] am 500 mg 1-14 tablet by ity o f tablet 00:00: mouth 2 [place] 00 (two) Medical times Branch daily. atorvastati 2020-0 Yes [id number] 80mg Take 1 [facility] n 80 mg 1-14 tablet by ity of tablet 00:00: mouth at [place] 00 bedtime. Medical [facility] blood sugar 2020-0 Yes [id number] Use BID, [facility] diagnostic 1-14 DX E11.9 it[facility] o f (BLOOD 00:00: (Brand [place] GLUCOSE 00 upon Medical TEST) strip insurance [employer] approval) gabapentin 2020-0 Yes [id number] 400mg Take 1 [facility] 400 mg 1-14 capsule by ity of capsule 00:00: mouth 3 [place] 00 (three) Medical times Branch daily. QUEtiapine 2020-0 Yes [id number] 100mg Take 1 [facility] 100 mg 1-14 tablet by ity of tablet 00:00: mouth at [place] 00 bedtime. Medical [facility] SERTraline 2020-0 Yes [id number] 100mg Take 1 [facility] 100 mg 1-14 tablet by ity of tablet 00:00: mouth [place] 00 every Medical morning. Branch tamsulosin 2020-0 Yes [id number] .4mg Take 1 [facility] 0.4 mg 24 1-14 capsule by ity of hr capsule 00:00: mouth [place] 00 daily. [facility] traZODone 2020-0 Yes [id number] 50mg Take 1 [facility] 50 mg 1-14 tablet by [facility] of tablet 00:00: mouth at [place] 00 bedtime. [facility] levETIRAcet 2020-0 Yes [id number] 500mg Take 1 [facility] am 500 mg 1-14 tablet by ity o f tablet 00:00: mouth 2 (two) Medical times Branch daily. atorvastati 2020-0 Yes [id number] 80mg Take 1 [facility] n 80 mg 1-14 tablet by ity of tablet 00:00: mouth at [place] 00 bedtime. [facility] blood sugar 2020-0 Yes [id number] Use BID, [facility] diagnostic 1-14 DX E11.9 [facility] o f (BLOOD 00:00: (Brand [place] GLUCOSE 00 upon Medical TEST) strip insurance [employer] approval) gabapentin 2020-0 Yes [id number] 400mg Take 1 [facility] 400 mg 1-14 capsule by ity of capsule 00:00: mouth 3 (three) Medical times Branch daily. QUEtiapine 2020-0 Yes [id number] 100mg Take 1 [facility] 100 mg 1-14 tablet by ity of tablet 00:00: mouth at [place] 00 bedtime. [facility] SERTraline 2020-0 Yes [id number] 100mg Take 1 [facility] 100 mg 1-14 tablet by ity of tablet 00:00: mouth [place] 00 every Medical morning. Branch tamsulosin 2020-0 Yes [id number] .4mg Take 1 [facility] 0.4 mg 24 1-14 capsule by ity of hr capsule 00:00: mouth [place] 00 daily. [facility] traZODone 2020-0 Yes [id number] 50mg Take 1 [facility] [place] 50 mg 1-14 tablet by [facility] of tablet 00:00: mouth at [place] 00 bedtime. [facility] levETIRAcet 2020-0 Yes [id number] 500mg Take 1 [facility] am 500 mg 1-14 tablet by ity o f tablet 00:00: mouth 2 00 (two) Medical times Branch daily. atorvastati 2020-0 Yes [id number] 80mg Take 1 [facility] n 80 mg 1-14 tablet by ity of tablet 00:00: mouth at [place] 00 bedtime. [facility] blood sugar 2020-0 Yes [id number] Use BID, [facility] diagnostic 1-14 DX E11.9 [facility] o f (BLOOD 00:00: (Brand [place] GLUCOSE 00 upon Medical TEST) strip insurance [employer] approval) gabapentin 2020-0 Yes [id number] 400mg Take 1 [facility] 400 mg 1-14 capsule by ity of capsule 00:00: mouth 3 00 (three) Medical times Branch daily. QUEtiapine 2020-0 Yes [id number] 100mg Take 1 [facility] 100 mg 1-14 tablet by ity of tablet 00:00: mouth at [place] 00 bedtime. [facility] SERTraline 2020-0 Yes [id number] 100mg Take 1 [facility] 100 mg 1-14 tablet by ity of tablet 00:00: mouth [place] 00 every Medical morning. Branch tamsulosin 2020-0 Yes [id number] .4mg Take 1 [facility] 0.4 mg 24 1-14 capsule by ity of hr capsule 00:00: mouth [place] 00 daily. [facility] traZODone 2020-0 Yes [id number] 50mg Take 1 [facility] 50 mg 1-14 tablet by [facility] of tablet 00:00: mouth at [place] 00 bedtime. [facility] levETIRAcet 2020-0 Yes [id number] 500mg Take 1 [facility] am 500 mg 1-14 tablet by ity o f tablet 00:00: mouth 2 [place] (two) Medical times Branch daily. atorvastati 2020-0 Yes [id number] 80mg Take 1 [facility] n 80 mg 1-14 tablet by it[facility] of tablet 00:00: mouth at [place] 00 bedtime. Medical [facility] blood sugar 2020-0 Yes [id number] Use BID, [facility] diagnostic 1-14 DX E11.9 [facility] o f (BLOOD 00:00: (Brand [place] GLUCOSE 00 upon Medical TEST) strip insurance [employer] approval) gabapentin 2020-0 Yes [id number] 400mg Take 1 [facility] 400 mg 1-14 capsule by ity of capsule 00:00: mouth 3 [place] 00 (three) Medical times Branch daily. QUEtiapine 2020-0 Yes [id number] 100mg Take 1 [facility] 100 mg 1-14 tablet by [facility]y of tablet 00:00: mouth at [place] 00 bedtime. Medical [facility] SERTraline 2020-0 Yes [id number] 100mg Take 1 [facility] 100 mg 1-14 tablet by ity of tablet 00:00: mouth [place] 00 every Medical morning. Branch tamsulosin 2020-0 Yes [id number] .4mg Take 1 [facility] 0.4 mg 24 1-14 capsule by ity of hr capsule 00:00: mouth [place] 00 daily. [facility] traZODone 2020-0 Yes [id number] 50mg Take 1 [facility] 50 mg 1-14 tablet by [facility] of tablet 00:00: mouth at [place] 00 bedtime. [facility] levETIRAcet 2020-0 Yes [id number] 500mg Take 1 [facility] am 500 mg 1-14 tablet by ity o f tablet 00:00: mouth 2 00 (two) Medical times Branch daily. atorvastati 2020-0 Yes [id number] 80mg Take 1 [facility] n 80 mg 1-14 tablet by ity of tablet 00:00: mouth at [place] 00 bedtime. Medical [facility] blood sugar 2020-0 Yes [id number] Use BID, [facility] diagnostic 1-14 DX E11.9 [facility] o f (BLOOD 00:00: (Brand [place] GLUCOSE 00 upon Medical TEST) strip insurance [employer] approval) gabapentin 2020-0 Yes [id number] 400mg Take 1 [facility] 400 mg 1-14 capsule by ity of capsule 00:00: mouth 3 (three) Medical times Branch daily. QUEtiapine 2020-0 Yes [id number] 100mg Take 1 [facility] 100 mg 1-14 tablet by ity of tablet 00:00: mouth at [place] 00 bedtime. [facility] SERTraline 2020-0 Yes [id number] 100mg Take 1 [facility] 100 mg 1-14 tablet by ity of tablet 00:00: mouth [place] 00 every Medical morning. Branch tamsulosin 2020-0 Yes [id number] .4mg Take 1 [facility] 0.4 mg 24 1-14 capsule by ity of hr capsule 00:00: mouth [place] 00 daily. [facility] traZODone 2020-0 Yes [id number] 50mg Take 1 [facility] 50 mg 1-14 tablet by [facility]y of tablet 00:00: mouth at [place] 00 bedtime. [facility] levETIRAcet 2020-0 Yes [id number] 500mg Take 1 [facility] am 500 mg 1-14 tablet by ity o f tablet 00:00: mouth 2 (two) Medical times Branch daily. atorvastati 2020-0 Yes [id number] 80mg Take 1 [facility] n 80 mg 1-14 tablet by ity of tablet 00:00: mouth at [place] 00 bedtime. [facility] blood sugar 2020-0 Yes [id number] Use BID, [facility] diagnostic 1-14 DX E11.9 it[facility] o f (BLOOD 00:00: (Brand [place] GLUCOSE 00 upon Medical TEST) strip insurance [employer] approval) gabapentin 2020-0 Yes [id number] 400mg Take 1 [facility] 400 mg 1-14 capsule by ity of capsule 00:00: mouth 3 [place] 00 (three) Medical times Branch daily. QUEtiapine 2020-0 Yes [id number] 100mg Take 1 [facility] 100 mg 1-14 tablet by ity of tablet 00:00: mouth at [place] 00 bedtime. Medical [facility] SERTraline 2020-0 Yes [id number] 100mg Take 1 [facility] 100 mg 1-14 tablet by ity of tablet 00:00: mouth [place] 00 every Medical morning. Branch tamsulosin 2020-0 Yes [id number] .4mg Take 1 [facility] 0.4 mg 24 1-14 capsule by ity of hr capsule 00:00: mouth [place] 00 daily. [facility] traZODone 2020-0 Yes [id number] 50mg Take 1 [facility] 50 mg 1-14 tablet by [facility]y of tablet 00:00: mouth at [place] 00 bedtime. Medical Branch levETIRAcet 2020-0 Yes [id number] 500mg Take 1 [facility] am 500 mg 1-14 tablet by [facility] o f tablet 00:00: mouth 2 [place] 00 (two) Medical times Branch daily. atorvastati 2020-0 Yes [id number] 80mg Take 1 [facility] n 80 mg 1-14 tablet by [facility] of tablet 00:00: mouth at [place] 00 bedtime. Medical [facility] blood sugar 2020-0 Yes [id number] Use BID, [facility] diagnostic 1-14 DX E11.9 [facility] o f (BLOOD 00:00: (Brand [place] GLUCOSE 00 upon Medical TEST) strip insurance [employer] approval) gabapentin 2020-0 Yes [id number] 400mg Take 1 [facility] 400 mg 1-14 capsule by [facility] of capsule 00:00: mouth 3 [place] 00 (three) Medical times Branch daily. QUEtiapine 2020-0 Yes [id number] 100mg Take 1 [facility] 100 mg 1-14 tablet by [facility] tablet 00:00: mouth at [place] 00 bedtime. Medical [facility] SERTraline 2020-0 Yes [id number] 100mg Take 1 [facility] 100 mg 1-14 tablet by [facility] of tablet 00:00: mouth [place] 00 every Medical morning. Branch tamsulosin 2020-0 Yes [id number] .4mg Take 1 [facility] 0.4 mg 24 1-14 capsule by [facility] of hr capsule 00:00: mouth [place] 00 daily. Medical [facility] traZODone 2020-0 Yes [id number] 50mg Take 1 [facility] 50 mg 1-14 tablet by [facility] tablet 00:00: mouth at [place] 00 bedtime. Medical [facility] levETIRAcet 2020-0 Yes [id number] 500mg Take 1 [facility] am 500 mg 1-14 tablet by [facility] o f tablet 00:00: mouth 2 00 (two) Medical times Branch daily. atorvastati 2020-0 Yes [id number] 80mg Take 1 [facility] n 80 mg 1-14 tablet by [facility] of tablet 00:00: mouth at [place] 00 bedtime. Medical [facility] blood sugar 2020-0 Yes [id number] Use BID, [facility] diagnostic 1-14 DX E11.9 [facility] o f (BLOOD 00:00: (Brand [place] GLUCOSE 00 upon Medical TEST) strip insurance [employer] approval) gabapentin 2020-0 Yes [id number] 400mg Take 1 [facility] 400 mg 1-14 capsule by [facility] of capsule 00:00: mouth 3 [place] (three) Medical times Branch daily. QUEtiapine 2020-0 Yes [id number] 100mg Take 1 [facility] 100 mg 1-14 tablet by [facility] tablet 00:00: mouth at [place] 00 bedtime. Medical [facility] SERTraline 2020-0 Yes [id number] 100mg Take 1 [facility] 100 mg 1-14 tablet by [facility] of tablet 00:00: mouth [place] 00 every Medical morning. Branch tamsulosin 2020-0 Yes [id number] .4mg Take 1 [facility] 0.4 mg 24 1-14 capsule by [facility] of hr capsule 00:00: mouth [place] 00 daily. Medical [facility] traZODone 2020-0 Yes [id number] 50mg Take 1 [facility] 50 mg 1-14 tablet by [facility] tablet 00:00: mouth at [place] 00 bedtime. Medical [facility] levETIRAcet 2020-0 Yes [id number] 500mg Take 1 [facility] am 500 mg 1-14 tablet by [facility] o f tablet 00:00: mouth 2 [place] (two) Medical times Branch daily. atorvastati 2020-0 Yes [id number] 80mg Take 1 [facility] n 80 mg 1-14 tablet by [facility] of tablet 00:00: mouth at [place] 00 bedtime. Medical [facility] blood sugar 2020-0 Yes [id number] Use BID, [facility] diagnostic 1-14 DX E11.9 [facility] o f (BLOOD 00:00: (Brand [place] GLUCOSE 00 upon Medical TEST) strip insurance [employer] approval) gabapentin 2020-0 Yes [id number] 400mg Take 1 [facility] 400 mg 1-14 capsule by [facility] of capsule 00:00: mouth 3 (three) Medical times Branch daily. QUEtiapine 2020-0 Yes [id number] 100mg Take 1 [facility] 100 mg 1-14 tablet by [facility] of tablet 00:00: mouth at [place] 00 bedtime. Medical [facility] SERTraline 2020-0 Yes [id number] 100mg Take 1 [facility] 100 mg 1-14 tablet by [facility] of tablet 00:00: mouth [place] 00 every Medical morning. Branch tamsulosin 2020-0 Yes [id number] .4mg Take 1 [facility] 0.4 mg 24 1-14 capsule by [facility] of hr capsule 00:00: mouth 00 daily. Medical Branch traZODone 2020-0 Yes [id number] 50mg Take 1 [facility] 50 mg 1-14 tablet by [facility] of tablet 00:00: mouth at [place] 00 bedtime. Medical [facility] levETIRAcet 2020-0 Yes [id number] 500mg Take 1 [facility] am 500 mg 1-14 tablet by [facility] o f tablet 00:00: mouth 2 (two) Medical times Branch daily. atorvastati 2020-0 Yes [id number] 80mg Take 1 [facility] n 80 mg 1-14 tablet by [facility] of tablet 00:00: mouth at [place] 00 bedtime. Medical Branch blood sugar 2020-0 Yes [id number] Use BID, [facility] diagnostic 1-14 DX E11.9 [facility] o f (BLOOD 00:00: ([facility] GLUCOSE 00 upon Medical TEST) strip insurance [employer] approval) gabapentin 2020-0 Yes [id number] 400mg Take 1 [facility] 400 mg 1-14 capsule by it[facility] of capsule 00:00: mouth 3 (three) Medical times Branch daily. QUEtiapine 2020-0 Yes [id number] 100mg Take 1 [facility] 100 mg 1-14 tablet by it[facility] of tablet 00:00: mouth at [place] 00 bedtime. Medical Branch SERTraline 2020-0 Yes [id number] 100mg Take 1 [facility] 100 mg 1-14 tablet by ity of tablet 00:00: mouth [place] 00 every Medical morning. Branch tamsulosin 2020-0 Yes [id number] .4mg Take 1 [facility] 0.4 mg 24 1-14 capsule by it[facility] of hr capsule 00:00: mouth [place] 00 daily. Medical Branch traZODone 2020-0 Yes [id number] 50mg Take 1 [facility] 50 mg 1-14 tablet by [facility] of tablet 00:00: mouth at [place] 00 bedtime. Medical Branch levETIRAcet 2020-0 Yes [id number] 500mg Take 1 [facility] am 500 mg 1-14 tablet by it[facility] o f tablet 00:00: mouth 2 (two) Medical times Branch daily. atorvastati 2020-0 Yes [id number] 80mg Take 1 [facility] n 80 mg 1-14 tablet by [facility] of tablet 00:00: mouth at [place] 00 bedtime. Medical Branch blood sugar 2020-0 Yes [id number] Use BID, [facility] diagnostic 1-14 DX E11.9 it[facility] o f (BLOOD 00:00: (Brand [place] GLUCOSE 00 upon Medical TEST) strip insurance [employer] approval) gabapentin 2020-0 Yes [id number] 400mg Take 1 [facility] 400 mg 1-14 capsule by it[facility] of capsule 00:00: mouth 3 [place] (three) Medical times Branch daily. QUEtiapine 2020-0 Yes [id number] 100mg Take 1 [facility] 100 mg 1-14 tablet by it[facility] of tablet 00:00: mouth at [place] 00 bedtime. Medical Branch SERTraline 2020-0 Yes [id number] 100mg Take 1 [facility] 100 mg 1-14 tablet by it[facility] of tablet 00:00: mouth [place] 00 every Medical morning. Branch tamsulosin 2020-0 Yes [id number] .4mg Take 1 [facility] 0.4 mg 24 1-14 capsule by it[facility] of hr capsule 00:00: mouth 00 daily. Medical Branch traZODone 2020-0 Yes [id number] 50mg Take 1 [facility] 50 mg 1-14 tablet by [facility] of tablet 00:00: mouth at [place] 00 bedtime. Medical [facility] levETIRAcet 2020-0 Yes [id number] 500mg Take 1 [facility] am 500 mg 1-14 tablet by it[facility] o f tablet 00:00: mouth 2 (two) Medical times Branch daily. atorvastati 2020-0 Yes [id number] 80mg Take 1 [facility] n 80 mg 1-14 tablet by [facility] of tablet 00:00: mouth at [place] 00 bedtime. Medical Branch blood sugar 2020-0 Yes [id number] Use BID, [facility] diagnostic 1-14 DX E11.9 [facility] o f (BLOOD 00:00: (Brand [place] GLUCOSE 00 upon Medical TEST) strip insurance [employer] approval) gabapentin 2020-0 Yes [id number] 400mg Take 1 [facility] 400 mg 1-14 capsule by it[facility] of capsule 00:00: mouth 3 00 (three) Medical times Branch daily. QUEtiapine 2020-0 Yes [id number] 100mg Take 1 [facility] 100 mg 1-14 tablet by ity of tablet 00:00: mouth at [place] 00 bedtime. Medical Branch SERTraline 2020-0 Yes [id number] 100mg Take 1 [facility] 100 mg 1-14 tablet by ity of tablet 00:00: mouth [place] 00 every Medical morning. Branch tamsulosin 2020-0 Yes [id number] .4mg Take 1 [facility] 0.4 mg 24 1-14 capsule by ity of hr capsule 00:00: mouth [place] 00 daily. Medical Branch traZODone 2020-0 Yes [id number] 50mg Take 1 [facility] 50 mg 1-14 tablet by [facility] of tablet 00:00: mouth at [place] 00 bedtime. Medical Branch levETIRAcet 2020-0 Yes [id number] 500mg Take 1 [facility] am 500 mg 1-14 tablet by it[facility] o f tablet 00:00: mouth 2 (two) Medical times Branch daily. atorvastati 2020-0 Yes [id number] 80mg Take 1 [facility] n 80 mg 1-14 tablet by [facility] of tablet 00:00: mouth at [place] 00 bedtime. Medical Branch blood sugar 2020-0 Yes [id number] Use BID, [facility] diagnostic 1-14 DX E11.9 it[facility] o f (BLOOD 00:00: (Brand [place] GLUCOSE 00 upon Medical TEST) strip insurance [employer] approval) gabapentin 2020-0 Yes [id number] 400mg Take 1 [facility] 400 mg 1-14 capsule by it[facility] of capsule 00:00: mouth 3 (three) Medical times Branch daily. QUEtiapine 2020-0 Yes [id number] 100mg Take 1 [facility] 100 mg 1-14 tablet by ity of tablet 00:00: mouth at [place] 00 bedtime. Medical Branch SERTraline 2020-0 Yes [id number] 100mg Take 1 [facility] 100 mg 1-14 tablet by ity of tablet 00:00: mouth [place] 00 every Medical morning. Branch tamsulosin 2020-0 Yes [id number] .4mg Take 1 [facility] 0.4 mg 24 1-14 capsule by ity of hr capsule 00:00: mouth [place] 00 daily. Medical Branch traZODone 2020-0 Yes [id number] 50mg Take 1 [facility] 50 mg 1-14 tablet by it[facility] of tablet 00:00: mouth at [place] 00 bedtime. Medical Branch levETIRAcet 2020-0 Yes [id number] 500mg Take 1 [facility] am 500 mg 1-14 tablet by ity o f tablet 00:00: mouth 2 [place] (two) Medical times Branch daily. atorvastati 2020-0 Yes [id number] 80mg Take 1 [facility] n 80 mg 1-14 tablet by it[facility] of tablet 00:00: mouth at [place] 00 bedtime. Medical Branch blood sugar 2020-0 Yes [id number] Use BID, [facility] diagnostic 1-14 DX E11.9 it[facility] o f (BLOOD 00:00: (Brand [place] GLUCOSE 00 upon Medical TEST) strip insurance [employer] approval) gabapentin 2020-0 Yes [id number] 400mg Take 1 [facility] 400 mg 1-14 capsule by it[facility] of capsule 00:00: mouth 3 [place] (three) Medical times Branch daily. QUEtiapine 2020-0 Yes [id number] 100mg Take 1 [facility] 100 mg 1-14 tablet by it[facility] of tablet 00:00: mouth at [place] 00 bedtime. Medical Branch SERTraline 2020-0 Yes [id number] 100mg Take 1 [facility] 100 mg 1-14 tablet by ity of tablet 00:00: mouth [place] 00 every Medical morning. Branch tamsulosin 2020-0 Yes [id number] .4mg Take 1 [facility] 0.4 mg 24 1-14 capsule by ity of hr capsule 00:00: mouth 00 daily. Medical Branch traZODone 2020-0 Yes [id number] 50mg Take 1 [facility] 50 mg 1-14 tablet by it[facility] of tablet 00:00: mouth at [place] 00 bedtime. Medical Branch levETIRAcet 2020-0 Yes [id number] 500mg Take 1 [facility] am 500 mg 1-14 tablet by ity o f tablet 00:00: mouth 2 [place] 00 (two) Medical times Branch daily. atorvastati 2020-0 Yes [id number] 80mg Take 1 [facility] n 80 mg 1-14 tablet by ity of tablet 00:00: mouth at [place] 00 bedtime. Medical Branch blood sugar 2020-0 Yes [id number] Use BID, [facility] diagnostic 1-14 DX E11.9 it[facility] o f (BLOOD 00:00: (Brand [place] GLUCOSE 00 upon Medical TEST) strip insurance [employer] approval) gabapentin 2020-0 Yes [id number] 400mg Take 1 [facility] 400 mg 1-14 capsule by ity of capsule 00:00: mouth 3 (three) Medical times Branch daily. QUEtiapine 2020-0 Yes [id number] 100mg Take 1 [facility] 100 mg 1-14 tablet by ity of tablet 00:00: mouth at [place] 00 bedtime. Medical Branch SERTraline 2020-0 Yes [id number] 100mg Take 1 [facility] 100 mg 1-14 tablet by ity of tablet 00:00: mouth [place] 00 every Medical morning. Branch tamsulosin 2020-0 Yes [id number] .4mg Take 1 [facility] 0.4 mg 24 1-14 capsule by ity of hr capsule 00:00: mouth [place] 00 daily. Medical Branch traZODone 2020-0 Yes [id number] 50mg Take 1 [facility] 50 mg 1-14 tablet by ity of tablet 00:00: mouth at [place] 00 bedtime. Medical Branch levETIRAcet 2020-0 Yes [id number] 500mg Take 1 [facility] am 500 mg 1-14 tablet by ity o f tablet 00:00: mouth 2 (two) Medical times Branch daily. atorvastati 2020-0 Yes [id number] 80mg Take 1 [facility] n 80 mg 1-14 tablet by ity of tablet 00:00: mouth at [place] 00 bedtime. Medical Branch blood sugar 2020-0 Yes [id number] Use BID, [facility] diagnostic 1-14 DX E11.9 ity o f (BLOOD 00:00: (Brand [place] GLUCOSE 00 upon Medical TEST) strip insurance [employer] approval) gabapentin 2020-0 Yes [id number] 400mg Take 1 [facility] 400 mg 1-14 capsule by ity of capsule 00:00: mouth 3 [place] (three) Medical times Branch daily. QUEtiapine 2020-0 Yes [id number] 100mg Take 1 [facility] 100 mg 1-14 tablet by ity of tablet 00:00: mouth at [place] 00 bedtime. Medical Branch SERTraline 2020-0 Yes [id number] 100mg Take 1 [facility] 100 mg 1-14 tablet by ity of tablet 00:00: mouth [place] 00 every Medical morning. Branch tamsulosin 2020-0 Yes [id number] .4mg Take 1 [facility] 0.4 mg 24 1-14 capsule by ity of hr capsule 00:00: mouth [place] 00 daily. Medical Branch traZODone 2020-0 Yes [id number] 50mg Take 1 [facility] 50 mg 1-14 tablet by ity of tablet 00:00: mouth at [place] 00 bedtime. Medical Branch levETIRAcet 2020-0 Yes [id number] 500mg Take 1 [facility] am 500 mg 1-14 tablet by ity o f tablet 00:00: mouth 2 (two) Medical times Branch daily. atorvastati 2020-0 Yes [id number] 80mg Take 1 [facility] n 80 mg 1-14 tablet by ity of tablet 00:00: mouth at [place] 00 bedtime. Medical Branch blood sugar 2020-0 Yes [id number] Use BID, [facility] diagnostic 1-14 DX E11.9 ity o f (BLOOD 00:00: (Brand [place] GLUCOSE 00 upon Medical TEST) strip insurance [employer] approval) gabapentin 2020-0 Yes [id number] 400mg Take 1 [facility] 400 mg 1-14 capsule by ity of capsule 00:00: mouth 3 (three) Medical times Branch daily. QUEtiapine 2020-0 Yes [id number] 100mg Take 1 [facility] 100 mg 1-14 tablet by ity of tablet 00:00: mouth at [place] 00 bedtime. Medical Branch SERTraline 2020-0 Yes [id number] 100mg Take 1 [facility] 100 mg 1-14 tablet by ity of tablet 00:00: mouth [place] 00 every Medical morning. Branch tamsulosin 2020-0 Yes [id number] .4mg Take 1 [facility] 0.4 mg 24 1-14 capsule by ity of hr capsule 00:00: mouth [place] 00 daily. Medical Branch traZODone 2020-0 Yes [id number] 50mg Take 1 [facility] 50 mg 1-14 tablet by ity of tablet 00:00: mouth at [place] 00 bedtime. Medical Branch levETIRAcet 2020-0 Yes [id number] 500mg Take 1 [facility] am 500 mg 1-14 tablet by ity o f tablet 00:00: mouth 2 (two) Medical times Branch daily. atorvastati 2020-0 Yes [id number] 80mg Take 1 [facility] n 80 mg 1-14 tablet by ity of tablet 00:00: mouth at [place] 00 bedtime. Medical Branch blood sugar 2020-0 Yes [id number] Use BID, [facility] diagnostic 1-14 DX E11.9 ity o f (BLOOD 00:00: (Brand [place] GLUCOSE 00 upon Medical TEST) strip insurance [employer] approval) gabapentin 2020-0 Yes [id number] 400mg Take 1 [facility] 400 mg 1-14 capsule by ity of capsule 00:00: mouth 3 (three) Medical times Branch daily. QUEtiapine 2020-0 Yes [id number] 100mg Take 1 [facility] 100 mg 1-14 tablet by ity of tablet 00:00: mouth at [place] 00 bedtime. Medical Branch SERTraline 2020-0 Yes [id number] 100mg Take 1 [facility] 100 mg 1-14 tablet by ity of tablet 00:00: mouth [place] 00 every Medical morning. Branch tamsulosin 2020-0 Yes [id number] .4mg Take 1 [facility] 0.4 mg 24 1-14 capsule by ity of hr capsule 00:00: mouth daily. Medical Branch traZODone 2020-0 Yes [id number] 50mg Take 1 [facility] 50 mg 1-14 tablet by ity of tablet 00:00: mouth at [place] 00 bedtime. Medical Branch levETIRAcet 2020-0 Yes [id number] 500mg Take 1 [facility] am 500 mg 1-14 tablet by ity o f tablet 00:00: mouth 2 (two) Medical times Branch daily. atorvastati 2020-0 Yes [id number] 80mg Take 1 [facility] n 80 mg 1-14 tablet by ity of tablet 00:00: mouth at [place] 00 bedtime. Medical Branch blood sugar 2020-0 Yes [id number] Use BID, [facility] diagnostic 1-14 DX E11.9 ity o f (BLOOD 00:00: (Brand [place] GLUCOSE 00 upon Medical TEST) strip insurance [employer] approval) gabapentin 2020-0 Yes [id number] 400mg Take 1 [facility] 400 mg 1-14 capsule by ity of capsule 00:00: mouth 3 (three) Medical times Branch daily. QUEtiapine 2020-0 Yes [id number] 100mg Take 1 [facility] 100 mg 1-14 tablet by ity of tablet 00:00: mouth at [place] 00 bedtime. Medical Branch SERTraline 2020-0 Yes [id number] 100mg Take 1 [facility] 100 mg 1-14 tablet by ity of tablet 00:00: mouth [place] 00 every Medical morning. Branch tamsulosin 2020-0 Yes [id number] .4mg Take 1 [facility] 0.4 mg 24 1-14 capsule by ity of hr capsule 00:00: mouth [place] 00 daily. Medical Branch traZODone 2020-0 Yes [id number] 50mg Take 1 [facility] 50 mg 1-14 tablet by ity of tablet 00:00: mouth at [place] 00 bedtime. Medical Branch levETIRAcet 2020-0 Yes [id number] 500mg Take 1 [facility] am 500 mg 1-14 tablet by ity o f tablet 00:00: mouth 2 (two) Medical times Branch daily. atorvastati 2020-0 Yes [id number] 80mg Take 1 [facility] n 80 mg 1-14 tablet by ity of tablet 00:00: mouth at [place] bedtime. Medical Branch blood sugar 2020-0 Yes [id number] Use BID, [facility] diagnostic 1-14 DX E11.9 ity o f (BLOOD 00:00: (Brand [place] GLUCOSE 00 upon Medical TEST) strip insurance [employer] approval) gabapentin 2020-0 Yes [id number] 400mg Take 1 [facility] 400 mg 1-14 capsule by ity of capsule 00:00: mouth 3 (three) Medical times Branch daily. QUEtiapine 2020-0 Yes [id number] 100mg Take 1 [facility] 100 mg 1-14 tablet by ity of tablet 00:00: mouth at [place] 00 bedtime. Medical Branch SERTraline 2020-0 Yes [id number] 100mg Take 1 [facility] 100 mg 1-14 tablet by ity of tablet 00:00: mouth [place] 00 every Medical morning. Branch tamsulosin 2020-0 Yes [id number] .4mg Take 1 [facility] 0.4 mg 24 1-14 capsule by ity of hr capsule 00:00: mouth 00 daily. Medical Branch traZODone 2020-0 Yes [id number] 50mg Take 1 [facility] 50 mg 1-14 tablet by ity of tablet 00:00: mouth at [place] [address] bedtime. Medical Branch levETIRAcet 2020-0 Yes [id number] 500mg Take 1 [facility] am 500 mg 1-14 tablet by ity o f tablet 00:00: mouth 2 [place] 00 (two) Medical times Branch daily. atorvastati 2020-0 Yes [id number] 80mg Take 1 [facility] n 80 mg 1-14 tablet by ity of tablet 00:00: mouth at [place] 00 bedtime. Medical Branch blood sugar 2020-0 Yes [id number] Use BID, [facility] diagnostic 1-14 DX E11.9 ity o f (BLOOD 00:00: (Brand [place] GLUCOSE 00 upon Medical TEST) strip insurance [employer] approval) gabapentin 2020-0 Yes [id number] 400mg Take 1 [facility] 400 mg 1-14 capsule by ity of capsule 00:00: mouth 3 (three) Medical times Branch daily. QUEtiapine 2020-0 Yes [id number] 100mg Take 1 [facility] 100 mg 1-14 tablet by ity of tablet 00:00: mouth at [place] 00 bedtime. Medical Branch SERTraline 2020-0 Yes [id number] 100mg Take 1 [facility] 100 mg 1-14 tablet by ity of tablet 00:00: mouth 00 every Medical morning. Branch tamsulosin 2020-0 Yes [id number] .4mg Take 1 [facility] 0.4 mg 24 1-14 capsule by ity of hr capsule 00:00: mouth [place] 00 daily. Medical Branch traZODone 2020-0 Yes [id number] 50mg Take 1 [facility] 50 mg 1-14 tablet by ity of tablet 00:00: mouth at [place] 00 bedtime. Medical Branch levETIRAcet 2020-0 Yes [id number] 500mg Take 1 [facility] am 500 mg 1-14 tablet by ity o f tablet 00:00: mouth 2 (two) Medical times Branch daily. atorvastati 2020-0 Yes [id number] 80mg Take 1 [facility] n 80 mg 1-14 tablet by ity of tablet 00:00: mouth at [place] 00 bedtime. Medical Branch blood sugar 2020-0 Yes [id number] Use BID, [facility] diagnostic 1-14 DX E11.9 ity o f (BLOOD 00:00: (Brand [place] GLUCOSE 00 upon Medical TEST) strip insurance [employer] approval) gabapentin 2020-0 Yes [id number] 400mg Take 1 [facility] 400 mg 1-14 capsule by ity of capsule 00:00: mouth 3 (three) Medical times Branch daily. QUEtiapine 2020-0 Yes [id number] 100mg Take 1 [facility] 100 mg 1-14 tablet by ity of tablet 00:00: mouth at [place] 00 bedtime. Medical Branch SERTraline 2020-0 Yes [id number] 100mg Take 1 [facility] 100 mg 1-14 tablet by ity of tablet 00:00: mouth [place] 00 every Medical morning. Branch tamsulosin 2020-0 Yes [id number] .4mg Take 1 [facility] 0.4 mg 24 1-14 capsule by ity of hr capsule 00:00: mouth [place] 00 daily. Medical Branch traZODone 2020-0 Yes [id number] 50mg Take 1 [facility] 50 mg 1-14 tablet by ity of tablet 00:00: mouth at [place] 00 bedtime. Medical Branch levETIRAcet 2020-0 Yes [id number] 500mg Take 1 [facility] am 500 mg 1-14 tablet by ity o f tablet 00:00: mouth 2 (two) Medical times Branch daily. atorvastati 2020-0 Yes [id number] 80mg Take 1 [facility] n 80 mg 1-14 tablet by ity of tablet 00:00: mouth at [place] 00 bedtime. Medical Branch blood sugar 2020-0 Yes [id number] Use BID, [facility] diagnostic 1-14 DX E11.9 ity o f (BLOOD 00:00: (Brand [place] GLUCOSE 00 upon Medical TEST) strip insurance [employer] approval) gabapentin 2020-0 Yes [id number] 400mg Take 1 [facility] 400 mg 1-14 capsule by ity of capsule 00:00: mouth 3 (three) Medical times Branch daily. QUEtiapine 2020-0 Yes [id number] 100mg Take 1 [facility] 100 mg 1-14 tablet by ity of tablet 00:00: mouth at [place] 00 bedtime. Medical Branch SERTraline 2020-0 Yes [id number] 100mg Take 1 [facility] 100 mg 1-14 tablet by ity of tablet 00:00: mouth [place] 00 every Medical morning. Branch tamsulosin 2020-0 Yes [id number] .4mg Take 1 [facility] 0.4 mg 24 1-14 capsule by ity of hr capsule 00:00: mouth [place] 00 daily. Medical Branch traZODone 2020-0 Yes [id number] 50mg Take 1 [facility] 50 mg 1-14 tablet by ity of tablet 00:00: mouth at [place] [address] bedtime. Medical Branch levETIRAcet 2020-0 Yes [id number] 500mg Take 1 [facility] am 500 mg 1-14 tablet by ity o f tablet 00:00: mouth 2 00 (two) Medical times Branch daily. atorvastati 2020-0 Yes [id number] 80mg Take 1 [facility] n 80 mg 1-14 tablet by ity of tablet 00:00: mouth at [place] 00 bedtime. Medical Branch blood sugar 2020-0 Yes [id number] Use BID, [facility] diagnostic 1-14 DX E11.9 ity o f (BLOOD 00:00: (Brand [place] GLUCOSE 00 upon Medical TEST) strip insurance [employer] approval) gabapentin 2020-0 Yes [id number] 400mg Take 1 [facility] 400 mg 1-14 capsule by ity of capsule 00:00: mouth 3 (three) Medical times Branch daily. QUEtiapine 2020-0 Yes [id number] 100mg Take 1 [facility] 100 mg 1-14 tablet by ity of tablet 00:00: mouth at [place] 00 bedtime. Medical Branch SERTraline 2020-0 Yes [id number] 100mg Take 1 [facility] 100 mg 1-14 tablet by ity of tablet 00:00: mouth [place] 00 every Medical morning. Branch tamsulosin 2020-0 Yes [id number] .4mg Take 1 [facility] 0.4 mg 24 1-14 capsule by ity of hr capsule 00:00: mouth [place] 00 daily. Medical Branch traZODone 2020-0 Yes [id number] 50mg Take 1 [facility] 50 mg 1-14 tablet by ity of tablet 00:00: mouth at [place] 00 bedtime. Medical Branch levETIRAcet 2020-0 Yes [id number] 500mg Take 1 [facility] am 500 mg 1-14 tablet by ity o f tablet 00:00: mouth 2 (two) Medical times Branch daily. atorvastati 2020-0 Yes [id number] 80mg Take 1 [facility] n 80 mg 1-14 tablet by ity of tablet 00:00: mouth at [place] 00 bedtime. Medical Branch blood sugar 2020-0 Yes [id number] Use BID, [facility] diagnostic 1-14 DX E11.9 ity o f (BLOOD 00:00: (Brand [place] GLUCOSE 00 upon Medical TEST) strip insurance [employer] approval) gabapentin 2020-0 Yes [id number] 400mg Take 1 [facility] 400 mg 1-14 capsule by ity of capsule 00:00: mouth 3 [place] 00 (three) Medical times Branch daily. QUEtiapine 2020-0 Yes [id number] 100mg Take 1 [facility] 100 mg 1-14 tablet by ity of tablet 00:00: mouth at [place] 00 bedtime. Medical Branch SERTraline 2020-0 Yes [id number] 100mg Take 1 [facility] 100 mg 1-14 tablet by ity of tablet 00:00: mouth [place] 00 every Medical morning. Branch tamsulosin 2020-0 Yes [id number] .4mg Take 1 [facility] 0.4 mg 24 1-14 capsule by ity of hr capsule 00:00: mouth [place] 00 daily. [facility] Branch traZODone 2020-0 Yes [id number] 50mg Take 1 [facility] 50 mg 1-14 tablet by ity of tablet 00:00: mouth at [place] [address] bedtime. Medical Branch levETIRAcet 2020-0 Yes [id number] 500mg Take 1 [facility] am 500 mg 1-14 tablet by ity o f tablet 00:00: mouth 2 [place] 00 (two) Medical times Branch daily. atorvastati 2020-0 Yes [id number] 80mg Take 1 [facility] n 80 mg 1-14 tablet by ity of tablet 00:00: mouth at [place] 00 bedtime. Medical Branch blood sugar 2020-0 Yes [id number] Use BID, [facility] diagnostic 1-14 DX E11.9 ity o f (BLOOD 00:00: (Brand [place] GLUCOSE 00 upon Medical TEST) strip insurance [employer] approval) gabapentin 2020-0 Yes [id number] 400mg Take 1 [facility] 400 mg 1-14 capsule by ity of capsule 00:00: mouth 3 [place] 00 (three) Medical times Branch daily. QUEtiapine 2020-0 Yes [id number] 100mg Take 1 [facility] 100 mg 1-14 tablet by ity of tablet 00:00: mouth at [place] 00 bedtime. Medical Branch SERTraline 2020-0 Yes [id number] 100mg Take 1 [facility] 100 mg 1-14 tablet by ity of tablet 00:00: mouth [place] 00 every Medical morning. Branch tamsulosin 2020-0 Yes [id number] .4mg Take 1 [facility] 0.4 mg 24 1-14 capsule by ity of hr capsule 00:00: mouth [place] 00 daily. [facility] Branch traZODone 2020-0 Yes [id number] 50mg Take 1 [facility] 50 mg 1-14 tablet by ity of tablet 00:00: mouth at [place] 00 bedtime. [facility] Branch levETIRAcet 2020-0 Yes [id number] 500mg Take 1 [facility] am 500 mg 1-14 tablet by ity o f tablet 00:00: mouth 2 (two) Medical times Branch daily. atorvastati 2020-0 Yes [id number] 80mg Take 1 [facility] n 80 mg 1-14 tablet by ity of tablet 00:00: mouth at [place] 00 bedtime. Medical Branch blood sugar 2020-0 Yes [id number] Use BID, [facility] diagnostic 1-14 DX E11.9 ity o f (BLOOD 00:00: (Brand [place] GLUCOSE 00 upon Medical TEST) strip insurance [employer] approval) gabapentin 2020-0 Yes [id number] 400mg Take 1 [facility] 400 mg 1-14 capsule by ity of capsule 00:00: mouth 3 (three) Medical times Branch daily. QUEtiapine 2020-0 Yes [id number] 100mg Take 1 [facility] 100 mg 1-14 tablet by ity of tablet 00:00: mouth at [place] 00 bedtime. Medical Branch SERTraline 2020-0 Yes [id number] 100mg Take 1 [facility] 100 mg 1-14 tablet by ity of tablet 00:00: mouth [place] 00 every Medical morning. Branch tamsulosin 2020-0 Yes [id number] .4mg Take 1 [facility] 0.4 mg 24 1-14 capsule by ity of hr capsule 00:00: mouth [place] 00 daily. Medical Branch traZODone 2020-0 Yes [id number] 50mg Take 1 [facility] [place] 50 mg 1-14 tablet by ity of tablet 00:00: mouth at [place] 00 bedtime. Medical Branch levETIRAcet 2020-0 Yes [id number] 500mg Take 1 [facility] am 500 mg 1-14 tablet by ity o f tablet 00:00: mouth 2 00 (two) Medical times Branch daily. atorvastati 2020-0 Yes [id number] 80mg Take 1 [facility] n 80 mg 1-14 tablet by ity of tablet 00:00: mouth at [place] 00 bedtime. Medical Branch blood sugar 2020-0 Yes [id number] Use BID, [facility] diagnostic 1-14 DX E11.9 ity o f (BLOOD 00:00: (Brand [place] GLUCOSE 00 upon Medical TEST) strip insurance [employer] approval) gabapentin 2020-0 Yes [id number] 400mg Take 1 [facility] 400 mg 1-14 capsule by ity of capsule 00:00: mouth 3 00 (three) Medical times Branch daily. QUEtiapine 2020-0 Yes [id number] 100mg Take 1 [facility] 100 mg 1-14 tablet by ity of tablet 00:00: mouth at [place] 00 bedtime. Medical Branch SERTraline 2020-0 Yes [id number] 100mg Take 1 [facility] 100 mg 1-14 tablet by ity of tablet 00:00: mouth [place] 00 every Medical morning. Branch tamsulosin 2020-0 Yes [id number] .4mg Take 1 [facility] 0.4 mg 24 1-14 capsule by ity of hr capsule 00:00: mouth [place] 00 daily. Medical Branch traZODone 2020-0 Yes [id number] 50mg Take 1 [facility] [place] 50 mg 1-14 tablet by ity of tablet 00:00: mouth at [place] 00 bedtime. Medical Branch levETIRAcet 2020-0 Yes [id number] 500mg Take 1 [facility] am 500 mg 1-14 tablet by ity o f tablet 00:00: mouth 2 [place] (two) Medical times Branch daily. atorvastati 2020-0 Yes [id number] 80mg Take 1 [facility] n 80 mg 1-14 tablet by ity of tablet 00:00: mouth at [place] 00 bedtime. Medical Branch blood sugar 2020-0 Yes [id number] Use BID, [facility] diagnostic 1-14 DX E11.9 ity o f (BLOOD 00:00: (Brand [place] GLUCOSE 00 upon Medical TEST) strip insurance [employer] approval) gabapentin 2020-0 Yes [id number] 400mg Take 1 [facility] 400 mg 1-14 capsule by ity of capsule 00:00: mouth 3 [place] 00 (three) Medical times Branch daily. QUEtiapine 2020-0 Yes [id number] 100mg Take 1 [facility] 100 mg 1-14 tablet by ity of tablet 00:00: mouth at [place] 00 bedtime. Medical Branch SERTraline 2020-0 Yes [id number] 100mg Take 1 [facility] 100 mg 1-14 tablet by ity of tablet 00:00: mouth [place] 00 every Medical morning. Branch tamsulosin 2020-0 Yes [id number] .4mg Take 1 [facility] 0.4 mg 24 1-14 capsule by ity of hr capsule 00:00: mouth [place] 00 daily. Medical Branch traZODone 2020-0 Yes [id number] 50mg Take 1 [facility] [place] 50 mg 1-14 tablet by ity of tablet 00:00: mouth at [place] 00 bedtime. Medical Branch levETIRAcet 2020-0 Yes [id number] 500mg Take 1 [facility] am 500 mg 1-14 tablet by ity o f tablet 00:00: mouth 2 00 (two) Medical times Branch daily. atorvastati 2020-0 Yes [id number] 80mg Take 1 [facility] n 80 mg 1-14 tablet by ity of tablet 00:00: mouth at [place] 00 bedtime. Medical Branch blood sugar 2020-0 Yes [id number] Use BID, [facility] diagnostic 1-14 DX E11.9 ity o f (BLOOD 00:00: (Brand [place] GLUCOSE 00 upon Medical TEST) strip insurance [employer] approval) gabapentin 2020-0 Yes [id number] 400mg Take 1 [facility] 400 mg 1-14 capsule by ity of capsule 00:00: mouth 3 (three) Medical times Branch daily. QUEtiapine 2020-0 Yes [id number] 100mg Take 1 [facility] 100 mg 1-14 tablet by ity of tablet 00:00: mouth at [place] 00 bedtime. Medical Branch SERTraline 2020-0 Yes [id number] 100mg Take 1 [facility] 100 mg 1-14 tablet by ity of tablet 00:00: mouth [place] 00 every Medical morning. Branch tamsulosin 2020-0 Yes [id number] .4mg Take 1 [facility] 0.4 mg 24 1-14 capsule by ity of hr capsule 00:00: mouth [place] 00 daily. Medical Branch traZODone 2020-0 Yes [id number] 50mg Take 1 [facility] [place] 50 mg 1-14 tablet by ity of tablet 00:00: mouth at [place] 00 bedtime. Medical Branch levETIRAcet 2020-0 Yes [id number] 500mg Take 1 [facility] am 500 mg 1-14 tablet by ity o f tablet 00:00: mouth 2 (two) Medical times Branch daily. atorvastati 2020-0 Yes [id number] 80mg Take 1 [facility] n 80 mg 1-14 tablet by ity of tablet 00:00: mouth at [place] 00 bedtime. Medical Branch blood sugar 2020-0 Yes [id number] Use BID, [facility] diagnostic 1-14 DX E11.9 ity o f (BLOOD 00:00: (Brand [place] GLUCOSE 00 upon Medical TEST) strip insurance [employer] approval) gabapentin 2020-0 Yes [id number] 400mg Take 1 [facility] 400 mg 1-14 capsule by ity of capsule 00:00: mouth 3 [place] 00 (three) Medical times Branch daily. QUEtiapine 2020-0 Yes [id number] 100mg Take 1 [facility] 100 mg 1-14 tablet by ity of tablet 00:00: mouth at [place] 00 bedtime. Medical Branch SERTraline 2020-0 Yes [id number] 100mg Take 1 [facility] 100 mg 1-14 tablet by ity of tablet 00:00: mouth [place] 00 every Medical morning. Branch tamsulosin 2020-0 Yes [id number] .4mg Take 1 [facility] 0.4 mg 24 1-14 capsule by ity of hr capsule 00:00: mouth [place] 00 daily. Medical Branch traZODone 2020-0 Yes [id number] 50mg Take 1 [facility] [place] 50 mg 1-14 tablet by ity of tablet 00:00: mouth at [place] 00 bedtime. Medical Branch levETIRAcet 2020-0 Yes [id number] 500mg Take 1 [facility] am 500 mg 1-14 tablet by ity o f tablet 00:00: mouth 2 [place] 00 (two) Medical times Branch daily. atorvastati 2020-0 Yes [id number] 80mg Take 1 [facility] n 80 mg 1-14 tablet by ity of tablet 00:00: mouth at [place] 00 bedtime. Medical Branch blood sugar 2020-0 Yes [id number] Use BID, [facility] diagnostic 1-14 DX E11.9 ity o f (BLOOD 00:00: (Brand [place] GLUCOSE 00 upon Medical TEST) strip insurance [employer] approval) gabapentin 2020-0 Yes [id number] 400mg Take 1 [facility] 400 mg 1-14 capsule by ity of capsule 00:00: mouth 3 [place] 00 (three) Medical times Branch daily. QUEtiapine 2020-0 Yes [id number] 100mg Take 1 [facility] 100 mg 1-14 tablet by ity of tablet 00:00: mouth at [place] 00 bedtime. Medical Branch SERTraline 2020-0 Yes [id number] 100mg Take 1 [facility] 100 mg 1-14 tablet by ity of tablet 00:00: mouth [place] 00 every Medical morning. Branch tamsulosin 2020-0 Yes [id number] .4mg Take 1 [facility] 0.4 mg 24 1-14 capsule by ity of hr capsule 00:00: mouth [place] 00 daily. Medical Branch traZODone 2020-0 Yes [id number] 50mg Take 1 [place] 50 mg 1-14 tablet by ity of tablet 00:00: mouth at [place] 00 bedtime. Medical Branch levETIRAcet 2020-0 Yes [id number] 500mg Take 1 [facility] am 500 mg 1-14 tablet by ity o f tablet 00:00: mouth 2 [place] 00 (two) Medical times Branch daily. atorvastati 2020-0 Yes [id number] 80mg Take 1 [facility] n 80 mg 1-14 tablet by ity of tablet 00:00: mouth at [place] 00 bedtime. Medical Branch blood sugar 2020-0 Yes [id number] Use BID, [facility] diagnostic 1-14 DX E11.9 ity o f (BLOOD 00:00: (Brand [place] GLUCOSE 00 upon Medical TEST) strip insurance [employer] approval) gabapentin 2020-0 Yes [id number] 400mg Take 1 [facility] 400 mg 1-14 capsule by ity of capsule 00:00: mouth 3 [place] (three) Medical times Branch daily. Pioglitazon 2020-0 Yes [id number] 1{tbl} Take 1 [facility] e-Metformin 1-14 tablet by ity of 15-1,000 mg 00:00: mouth 2 [place] TM24 00 (two) Medical times Branch daily with meals. QUEtiapine 2020-0 Yes [id number] 100mg Take 1 [facility] 100 mg 1-14 tablet by ity of tablet 00:00: mouth at [place] 00 bedtime. Medical Branch SERTraline 2020-0 Yes [id number] 100mg Take 1 [facility] 100 mg 1-14 tablet by ity of tablet 00:00: mouth [place] 00 every Medical morning. Branch tamsulosin 2020-0 Yes [id number] .4mg Take 1 [facility] 0.4 mg 24 1-14 capsule by ity of hr capsule 00:00: mouth [place] 00 daily. Medical Branch traZODone 2020-0 Yes [id number] 50mg Take 1 [facility] [place] 50 mg 1-14 tablet by ity of tablet 00:00: mouth at [place] 00 bedtime. Medical Branch levETIRAcet 2020-0 Yes [id number] 500mg Take 1 [facility] am 500 mg 1-14 tablet by ity o f tablet 00:00: mouth 2 [place] 00 (two) Medical times Branch daily. Pioglitazon 2020-0 2020- No [id number] 1{tbl} Take 1 [facility] e-Metformin 1-14 -05 tablet by it y of 15-1,000 mg 00:00: 00:00 mouth 2 [place] TM24 00 :00 (two) Medical times [place] daily with meals. Pioglitazon 2020- No [id number] 1{tbl} Take 1 [facility] e-Metformin 1-14 -05 tablet by it y of 15-1,000 mg 00:00: 00:00 mouth 2 [place] TM24 00 :00 (two) Medical times [place] daily with meals. TENS unit 2018- Yes [id number] 1{kit} 1 Kit [facility] and 8-27 daily. ity of electrodes 00:00: [address] TENS unit 2019-0 Yes [id number] 1{kit} 1 Kit [facility] and 8-27 daily. ity of electrodes 00:00: [address] TENS unit 2019-0 Yes [id number] 1{kit} 1 Kit [facility] and 8-27 daily. ity of electrodes 00:00: [address] gabapentin 2019-0 Yes [id number] 400mg Take 1 [facility] 400 mg 8-27 capsule by ity of capsule 00:00: mouth 3 [place] [address] (three) [facility] [place] daily. TENS unit 2018-0 Yes [id number] 1{kit} 1 Kit [facility] and 8-27 daily. ity of electrodes 00:00: [address] TENS unit 2019-0 Yes [id number] 1{kit} 1 Kit [facility] and 8-27 daily. ity of electrodes 00:00: [address] TENS unit 2019-0 Yes [id number] 1{kit} 1 Kit [facility] and 8-27 daily. ity of electrodes 00:00: [address] Branch TENS unit 2019-0 Yes [id number] 1{kit} 1 Kit [facility] and 8-27 daily. ity of electrodes 00:00: [address] TENS unit 2019-0 Yes [id number] 1{kit} 1 Kit [facility] and 8-27 daily. ity of electrodes 00:00: [address] TENS unit 2019-0 Yes [id number] 1{kit} 1 Kit [facility] and 8-27 daily. ity of electrodes 00:00: [address] TENS unit 2019-0 Yes [id number] 1{kit} 1 Kit [facility] and 8-27 daily. ity of electrodes 00:00: [address] Branch TENS unit 2019-0 Yes [id number] 1{kit} 1 Kit [facility] and 8-27 daily. ity of electrodes 00:00: [address] gabapentin 2019-0 Yes [id number] 400mg Take 1 [facility] 400 mg 8-27 capsule by ity of capsule 00:00: mouth 3 [place] [address] ([facility]) Medical times [place] daily. TENS unit 2019-0 Yes [id number] 1{kit} 1 Kit [facility] and 8-27 daily. ity of electrodes 00:00: [address] TENS unit 2019-0 Yes [id number] 1{kit} 1 Kit [facility] and 8-27 daily. ity of electrodes 00:00: [address] TENS unit 2019-0 Yes [id number] 1{kit} 1 Kit [facility] and 8-27 daily. ity of electrodes 00:00: [address] TENS unit 2019-0 Yes [id number] 1{kit} 1 Kit [facility] and 8-27 daily. ity of electrodes 00:00: [address] gabapentin 2019-0 Yes [id number] 400mg Take 1 [facility] 400 mg 8-27 capsule by ity of capsule 00:00: mouth 3 [place] [address] ([facility]) [facility] times [place] daily. TENS unit 2019-0 Yes [id number] 1{kit} 1 Kit [facility] and 8-27 daily. ity of electrodes 00:00: [address] gabapentin 2019-0 Yes [id number] 400mg Take 1 [facility] 400 mg 8-27 capsule by ity of capsule 00:00: mouth 3 [place] ([facility]) [facility] times [place] daily. TENS unit 2019-0 Yes [id number] 1{kit} 1 Kit [facility] and 8-27 daily. ity of electrodes 00:00: [address] gabapentin 2019-0 Yes [id number] 400mg Take 1 [facility] 400 mg 8-27 capsule by ity of capsule 00:00: mouth 3 [place] [address] ([facility]) Medical times [place] daily. TENS unit 2019-0 Yes [id number] 1{kit} 1 Kit [facility] and 8-27 daily. ity of electrodes 00:00: [place] [facility] 00 Medical Branch TENS unit 2019-0 Yes [id number] 1{kit} 1 Kit [facility] and 8-27 daily. ity of electrodes 00:00: [facility] Medical Branch TENS unit 2018-0 Yes [id number] 1{kit} 1 Kit Univers and 8-27 daily. ity of electrodes 00:00: [facility] Medical Branch TENS unit 2018-0 Yes [id number] 1{kit} 1 Kit Univers and 8-27 daily. ity of electrodes 00:00: [facility] Medical Branch TENS unit 2018-0 Yes [id number] 1{kit} 1 Kit Univers and 8-27 daily. ity of electrodes 00:00: [facility] Medical Branch TENS unit 2018-0 Yes [id number] 1{kit} 1 Kit Univers and 8-27 daily. ity of electrodes 00:00: [facility] Medical Branch TENS unit 2018-0 Yes [id number] 1{kit} 1 Kit Univers and 8-27 daily. ity of electrodes 00:00: [facility] Medical Branch TENS unit 2018-0 Yes [id number] 1{kit} 1 Kit Univers and 8-27 daily. ity of electrodes 00:00: [facility] Medical Branch TENS unit 2018-0 Yes [id number] 1{kit} 1 Kit Univers and 8-27 daily. ity of electrodes 00:00: [facility] Medical Branch TENS unit 2018-0 Yes [id number] 1{kit} 1 Kit Univers and 8-27 daily. ity of electrodes 00:00: [facility] Medical Branch TENS unit 2018-0 Yes [id number] 1{kit} 1 Kit Univers and 8-27 daily. ity of electrodes 00:00: [facility] Medical Branch TENS unit 2018-0 Yes [id number] 1{kit} 1 Kit Univers and 8-27 daily. ity of electrodes 00:00: [place] [address] Medical Branch TENS unit 2018-0 Yes [id number] 1{kit} 1 Kit Univers and 8-27 daily. ity of electrodes 00:00: [facility] 00 Medical Branch TENS unit 2018-0 Yes [id number] 1{kit} 1 Kit Univers and 8-27 daily. ity of electrodes 00:00: [facility] 00 Medical Branch TENS unit 2018-0 Yes [id number] 1{kit} 1 Kit [facility] and 8-27 daily. ity of electrodes 00:00: [facility] 00 Medical Branch TENS unit 2019-0 Yes [id number] 1{kit} 1 Kit [facility] and 8-27 daily. ity of electrodes 00:00: [facility] Medical Branch TENS unit 2019-0 Yes [id number] 1{kit} 1 Kit Univers and 8-27 daily. ity of electrodes 00:00: [facility] Medical Branch TENS unit 2019-0 Yes [id number] 1{kit} 1 Kit Univers and 8-27 daily. ity of electrodes 00:00: [facility] Medical Branch TENS unit 2019-0 Yes [id number] 1{kit} 1 Kit Univers and 8-27 daily. ity of electrodes 00:00: [facility] Medical Branch TENS unit 2019-0 Yes [id number] 1{kit} 1 Kit Univers and 8-27 daily. ity of electrodes 00:00: [facility] Medical Branch TENS unit 2019-0 Yes [id number] 1{kit} 1 Kit Univers and 8-27 daily. ity of electrodes 00:00: [facility] Medical Branch TENS unit 2019-0 Yes [id number] 1{kit} 1 Kit Univers and 8-27 daily. ity of electrodes 00:00: [facility] Medical Branch TENS unit 2019-0 Yes [id number] 1{kit} 1 Kit Univers and 8-27 daily. ity of electrodes 00:00: [facility] Medical Branch TENS unit 2019-0 Yes [id number] 1{kit} 1 Kit Univers and 8-27 daily. ity of electrodes 00:00: [facility] Medical Branch TENS unit 2019-0 Yes [id number] 1{kit} 1 Kit Univers and 8-27 daily. ity of electrodes 00:00: [facility] 00 Medical Branch TENS unit 2019-0 Yes [id number] 1{kit} 1 Kit Univers and 8-27 daily. ity of electrodes 00:00: [facility] 00 Medical Branch TENS unit 2019-0 Yes [id number] 1{kit} 1 Kit Univers and 8-27 daily. ity of electrodes 00:00: [facility] 00 Medical Branch TENS unit 2019-0 Yes [id number] 1{kit} 1 Kit [facility] and 8-27 daily. ity of electrodes 00:00: [place] [facility] 00 Medical Branch TENS unit 2018-0 Yes [id number] 1{kit} 1 Kit [facility] and 8-27 daily. ity of electrodes 00:00: [address] TENS unit 2018-0 Yes [id number] 1{kit} 1 Kit Univers and 8-27 daily. ity of electrodes 00:00: [address] TENS unit 2018-0 Yes [id number] 1{kit} 1 Kit Univers and 8-27 daily. ity of electrodes 00:00: [address] TENS unit 2018-0 Yes [id number] 1{kit} 1 Kit Univers and 8-27 daily. ity of electrodes 00:00: [address] TENS unit 2018-0 Yes [id number] 1{kit} 1 Kit Univers and 8-27 daily. ity of electrodes 00:00: [address] TENS unit 2018-0 Yes [id number] 1{kit} 1 Kit Univers and 8-27 daily. ity of electrodes 00:00: [address] TENS unit 2018-0 Yes [id number] 1{kit} 1 Kit Univers and 8-27 daily. ity of electrodes 00:00: [address] TENS unit 2018-0 Yes [id number] 1{kit} 1 Kit Univers and 8-27 daily. ity of electrodes 00:00: [address] TENS unit 2018-0 Yes [id number] 1{kit} 1 Kit Univers and 8-27 daily. ity of electrodes 00:00: [address] gabapentin 2019-0 Yes [id number] 400mg Take 1 [facility] 400 mg 8-27 capsule by ity of capsule 00:00: mouth 3 [place] [address] (three) Medical times Branch daily. TENS unit 2018-0 Yes [id number] 1{kit} 1 Kit Univers and 8-27 daily. ity of electrodes 00:00: [address] TENS unit 2018-0 Yes [id number] 1{kit} 1 Kit Univers and 8-27 daily. ity of electrodes 00:00: [address] TENS unit 2018-0 Yes [id number] 1{kit} 1 Kit Univers and 8-27 daily. ity of electrodes 00:00: [address] Branch TENS unit 2018-0 Yes [id number] 1{kit} 1 Kit Univers and 8-27 daily. ity of electrodes 00:00: [address] Branch TENS unit 2019-0 Yes [id number] 1{kit} 1 Kit Univers and 8-27 daily. ity of electrodes 00:00: [address] Branch TENS unit 2019-0 Yes [id number] 1{kit} 1 Kit Univers and 8-27 daily. ity of electrodes 00:00: [address] Branch TENS unit 2019-0 Yes [id number] 1{kit} 1 Kit [facility] and 8-27 daily. ity of electrodes 00:00: [address] Branch TENS unit 2019-0 Yes [id number] 1{kit} 1 Kit Univers and 8-27 daily. ity of electrodes 00:00: [address] Branch TENS unit 2019-0 Yes [id number] 1{kit} 1 Kit Univers and 8-27 daily. ity of electrodes 00:00: [address] Branch gabapentin 2018-0 2020- No [id number] 400mg Take 1 [facility] 400 mg 11-12 capsule by ity of capsule 00:00: 00:00 mouth 3 [place] 00 :00 (three) Medical times [place] daily. gabapentin 2018-0 2020- No [id number] 400mg Take 1 [facility] 400 mg 11-12 capsule by ity of capsule 00:00: 00:00 mouth 3 [place] 00 :00 (three) Medical times Branch daily. baclofen 20 0 Yes 20mg Take 20 mg Univers mg tablet 7-03 by mouth. ity o f 00:00: [address] baclofen 20 2018-0 Yes 20mg Take 20 mg Univers mg tablet 7-03 by mouth. ity o f 00:00: [address] baclofen 20 2018-0 Yes 20mg Take 20 mg Univers mg tablet 7-03 by mouth. ity o f 00:00: [address] baclofen 20 2018-0 Yes 20mg Take 20 mg Univers mg tablet 7-03 by mouth. ity o f 00:00: [address] baclofen 20 2018-0 Yes 20mg Take 20 mg Univers mg tablet 7-03 by mouth. ity o f 00:00: [address] baclofen 20 2018-0 Yes 20mg Take 20 mg Univers mg tablet 7-03 by mouth. ity o f 00:00: [facility] baclofen 20 2018-0 Yes 20mg Take 20 mg Univers mg tablet 7-03 by mouth. ity o f 00:00: [facility] baclofen 20 2018-0 Yes 20mg Take 20 mg Univers mg tablet 7-03 by mouth. ity o f 00:00: [facility] baclofen 20 2018-0 Yes 20mg Take 20 mg Univers mg tablet 7-03 by mouth. ity o f 00:00: [facility] baclofen 20 2018-0 Yes 20mg Take 20 mg Univers mg tablet 7-03 by mouth. ity o f 00:00: [facility] baclofen 20 2018-0 Yes 20mg Take 20 mg Univers mg tablet 7-03 by mouth. ity o f 00:00: [facility] baclofen 20 2018-0 Yes 20mg Take 20 mg Univers mg tablet 7-03 by mouth. ity o f 00:00: [facility] baclofen 20 2018-0 Yes 20mg Take 20 mg Univers mg tablet 7-03 by mouth. ity o f 00:00: [facility] baclofen 20 2018-0 Yes 20mg Take 20 mg Univers mg tablet 7-03 by mouth. ity o f 00:00: [facility] baclofen 20 2018-0 Yes 20mg Take 20 mg Univers mg tablet 7-03 by mouth. ity o f 00:00: [facility] baclofen 20 2018-0 Yes 20mg Take 20 mg Univers mg tablet 7-03 by mouth. ity o f 00:00: [facility] baclofen 20 2018-0 Yes 20mg Take 20 mg Univers mg tablet 7-03 by mouth. ity o f 00:00: [facility] baclofen 20 2018-0 Yes 20mg Take 20 mg Univers mg tablet 7-03 by mouth. ity o f 00:00: [facility] baclofen 20 2018-0 Yes 20mg Take 20 mg Univers mg tablet 7-03 by mouth. ity o f 00:00: [address] Branch lancets 2018-0 Yes [id number] Use BID, Univers gauge Misc 6-18 DX E11.9 ity o f 00:00: (Brand [address] Branch approval) lancets 31 2018-0 Yes [id number] Use BID, Univers gauge Misc 6-18 DX E11.9 ity o f 00:00: (Brand [place] 00 upon Medical insurance Branch approval) blood sugar 2019-0 Yes [id number] Use BID, Univers diagnostic 6-18 DX E11.9 ity o f (BLOOD 00:00: (Brand [place] GLUCOSE 00 upon Medical TEST) strip insurance [employer] approval) lancets 31 2019-0 Yes [id number] Use BID, Univers gauge Misc 6-18 DX E11.9 ity o f 00:00: (Brand [place] 00 upon Medical insurance Branch approval) lancets 31 2019-0 Yes [id number] Use BID, Univers gauge Misc 6-18 DX E11.9 ity o f 00:00: (Brand [place] 00 upon Medical insurance Branch approval) lancets 31 2019-0 Yes [id number] Use BID, Univers gauge Misc 6-18 DX E11.9 ity o f 00:00: (Brand [place] 00 upon Medical insurance Branch approval) lancets 31 2019-0 Yes [id number] Use BID, Univers gauge Misc 6-18 DX E11.9 ity o f 00:00: (Brand [place] 00 upon Medical insurance Branch approval) lancets 31 2019-0 Yes [id number] Use BID, Univers gauge Misc 6-18 DX E11.9 ity o f 00:00: (Brand [place] 00 upon Medical insurance Branch approval) lancets 31 2019-0 Yes [id number] Use BID, Univers gauge Misc 6-18 DX E11.9 ity o f 00:00: (Brand [place] 00 upon Medical insurance Branch approval) lancets 31 2019-0 Yes [id number] Use BID, Univers gauge Misc 6-18 DX E11.9 ity o f 00:00: (Brand [place] 00 upon Medical insurance Branch approval) lancets 31 2019-0 Yes [id number] Use BID, Univers gauge Misc 6-18 DX E11.9 ity o f 00:00: (Brand [place] 00 upon Medical insurance Branch approval) blood sugar 2019-0 Yes [id number] Use BID, Univers diagnostic 6-18 DX E11.9 ity o f (BLOOD 00:00: (Brand [place] GLUCOSE 00 upon Medical TEST) strip insurance [employer] approval) lancets 31 2019-0 Yes [id number] Use BID, Univers gauge Misc 6-18 DX E11.9 ity o f 00:00: (Brand [place] 00 upon Medical insurance Branch approval) lancets 31 2019-0 Yes [id number] Use BID, Univers gauge Misc 6-18 DX E11.9 ity o f 00:00: (Brand [place] 00 upon Medical insurance Branch approval) lancets 31 2018-0 Yes [id number] Use BID, Univers gauge Misc 6-18 DX E11.9 ity o f 00:00: (Brand [place] 00 upon Medical insurance Branch approval) lancets 31 2018-0 Yes [id number] Use BID, Univers gauge Misc 6-18 DX E11.9 ity o f 00:00: (Brand [place] 00 upon Medical insurance Branch approval) blood sugar 2019-0 Yes [id number] Use BID, Univers diagnostic 6-18 DX E11.9 ity o f (BLOOD 00:00: (Brand [place] GLUCOSE 00 upon Medical TEST) strip insurance [employer] approval) lancets 31 2018-0 Yes [id number] Use BID, Univers gauge Misc 6-18 DX E11.9 ity o f 00:00: (Brand [place] 00 upon Medical insurance Branch approval) lancets 31 2018-0 Yes [id number] Use BID, Univers gauge Misc 6-18 DX E11.9 ity o f 00:00: (Brand [place] 00 upon Medical insurance Branch approval) blood sugar 2019-0 Yes [id number] Use BID, Univers diagnostic 6-18 DX E11.9 ity o f (BLOOD 00:00: (Brand [place] GLUCOSE 00 upon Medical TEST) strip insurance [employer] approval) lancets 31 2018-0 Yes [id number] Use BID, Univers gauge Misc 6-18 DX E11.9 ity o f 00:00: (Brand [place] 00 upon Medical insurance Branch approval) blood sugar 2019-0 Yes [id number] Use BID, Univers diagnostic 6-18 DX E11.9 ity o f (BLOOD 00:00: (Brand [place] GLUCOSE 00 upon Medical TEST) strip insurance [employer] approval) lancets 31 2018-0 Yes [id number] Use BID, Univers gauge Misc 6-18 DX E11.9 ity o f 00:00: (Brand [place] 00 upon Medical insurance Branch approval) lancets 31 2019-0 Yes [id number] Use BID, Univers gauge Misc 6-18 DX E11.9 ity o f 00:00: (Brand [place] 00 upon Medical insurance Branch approval) lancets 31 2019-0 Yes [id number] Use BID, Univers gauge Misc 6-18 DX E11.9 ity o f 00:00: ([facility] 00 upon Medical insurance Branch approval) lancets 31 2019-0 Yes [id number] Use BID, Univers gauge Misc 6-18 DX E11.9 ity o f 00:00: ([facility] upon Medical insurance Branch approval) lancets 31 2019-0 Yes [id number] Use BID, Univers gauge Misc 6-18 DX E11.9 ity o f 00:00: ([facility] upon Medical insurance Branch approval) lancets 31 2019-0 Yes [id number] Use BID, Univers gauge Misc 6-18 DX E11.9 ity o f 00:00: ([facility] upon Medical insurance Branch approval) lancets 31 2019-0 Yes [id number] Use BID, Univers gauge Misc 6-18 DX E11.9 ity o f 00:00: ([facility] upon [facility]) lancets 31 2019-0 Yes [id number] Use BID, [facility] gauge Misc 6-18 DX E11.9 ity o f 00:00: ([facility] upon Medical insurance Branch approval) blood sugar 2019-0 Yes [id number] Use BID, Univers diagnostic 6-18 DX E11.9 ity o f (BLOOD 00:00: ([facility] GLUCOSE 00 upon Medical TEST) strip insurance [facility] approval) lancets 31 2019-0 Yes [id number] Use BID, Univers gauge Misc 6-18 DX E11.9 ity o f 00:00: ([facility] upon Medical insurance Branch approval) lancets 31 2019-0 Yes [id number] Use BID, Univers gauge Misc 6-18 DX E11.9 ity o f 00:00: ([facility] upon Medical insurance Branch approval) lancets 31 2019-0 Yes [id number] Use BID, Univers gauge Misc 6-18 DX E11.9 ity o f 00:00: ([facility] upon Medical insurance Branch approval) lancets 31 2019-0 Yes [id number] Use BID, Univers gauge Misc 6-18 DX E11.9 ity o f 00:00: ([facility] upon Medical insurance Branch approval) lancets 31 2019-0 Yes [id number] Use BID, Univers gauge Misc 6-18 DX E11.9 ity o f 00:00: ([facility] [place] [facility] upon Medical insurance Branch approval) lancets 31 2019-0 Yes [id number] Use BID, [facility] gauge Misc 6-18 DX E11.9 ity o f 00:00: ([facility] [place] upon Medical insurance Branch approval) lancets 31 2019-0 Yes [id number] Use BID, Univers gauge Misc 6-18 DX E11.9 ity o f 00:00: ([facility] [place] upon Medical insurance Branch approval) lancets 31 2019-0 Yes [id number] Use BID, [facility] gauge Misc 6-18 DX E11.9 ity o f 00:00: ([facility] [place] upon Medical insurance Branch approval) lancets 31 2019-0 Yes [id number] Use BID, [facility] gauge Misc 6-18 DX E11.9 ity o f 00:00: ([facility] [place] upon Medical insurance Branch approval) lancets 31 2019-0 Yes [id number] Use BID, [facility] gauge Misc 6-18 DX E11.9 ity o f 00:00: ([facility] [place] upon Medical insurance Branch approval) blood sugar 2019-0 Yes [id number] Use BID, Univers diagnostic 6-18 DX E11.9 ity o f (BLOOD 00:00: ([facility] [place] GLUCOSE 00 upon Medical TEST) strip insurance [facility] approval) lancets 31 2019-0 Yes [id number] Use BID, Univers gauge Misc 6-18 DX E11.9 ity o f 00:00: ([facility] [place] upon Medical insurance Branch approval) lancets 31 2019-0 Yes [id number] Use BID, [facility] gauge Misc 6-18 DX E11.9 ity o f 00:00: ([facility] [place] upon Medical insurance Branch approval) lancets 31 2019-0 Yes [id number] Use BID, [facility] gauge Misc 6-18 DX E11.9 ity o f 00:00: ([facility] [place] upon Medical insurance Branch approval) lancets 31 2019-0 Yes [id number] Use BID, Univers gauge Misc 6-18 DX E11.9 ity o f 00:00: ([facility] [place] upon Medical insurance Branch approval) lancets 31 2019-0 Yes [id number] Use BID, Univers gauge Misc 6-18 DX E11.9 ity o f 00:00: ([facility] [place] upon Medical insurance Branch approval) lancets 31 2019-0 Yes [id number] Use BID, Univers gauge Misc 6-18 DX E11.9 ity o f 00:00: ([facility] [place] 00 upon Medical insurance Branch approval) lancets 31 2019-0 Yes [id number] Use BID, Univers gauge Misc 6-18 DX E11.9 ity o f 00:00: ([facility] [place] 00 upon Medical insurance Branch approval) lancets 31 2019-0 Yes [id number] Use BID, Univers gauge Misc 6-18 DX E11.9 ity o f 00:00: ([facility] [place] 00 upon Medical insurance Branch approval) lancets 31 2019-0 Yes [id number] Use BID, [facility] gauge Misc 6-18 DX E11.9 ity o f 00:00: ([facility] upon Medical insurance Branch approval) lancets 31 2019-0 Yes [id number] Use BID, Univers gauge Misc 6-18 DX E11.9 ity o f 00:00: ([facility] 00 upon Medical insurance Branch approval) blood sugar 2019-0 Yes [id number] Use BID, Univers diagnostic 6-18 DX E11.9 ity o f (BLOOD 00:00: ([facility] GLUCOSE 00 upon Medical TEST) strip insurance [facility] approval) lancets 31 2019-0 Yes [id number] Use BID, Univers gauge Misc 6-18 DX E11.9 ity o f 00:00: ([facility] [place] upon Medical insurance Branch approval) lancets 31 2019-0 Yes [id number] Use BID, Univers gauge Misc 6-18 DX E11.9 ity o f 00:00: ([facility] upon Medical insurance Branch approval) lancets 31 2019-0 Yes [id number] Use BID, Univers gauge Misc 6-18 DX E11.9 ity o f 00:00: ([facility] [place] upon Medical insurance Branch approval) lancets 31 2019-0 Yes [id number] Use BID, Univers gauge Misc 6-18 DX E11.9 ity o f 00:00: ([facility] upon Medical insurance Branch approval) lancets 31 2019-0 Yes [id number] Use BID, Univers gauge Misc 6-18 DX E11.9 ity o f 00:00: ([facility] [place] upon Medical insurance Branch approval) lancets 31 2019-0 Yes [id number] Use BID, Univers gauge Misc 6-18 DX E11.9 ity o f 00:00: ([facility] [place] 00 upon Medical insurance Branch approval) lancets 31 2019-0 Yes [id number] Use BID, Univers gauge Misc 6-18 DX E11.9 ity o f 00:00: ([facility] [place] 00 upon Medical insurance Branch approval) lancets 31 2019-0 Yes [id number] Use BID, Univers gauge Misc 6-18 DX E11.9 ity o f 00:00: ([facility] [place] upon Medical insurance Branch approval) lancets 31 2019-0 Yes [id number] Use BID, Univers gauge Misc 6-18 DX E11.9 ity o f 00:00: ([facility] [place] 00 upon Medical insurance Branch approval) lancets 31 2019-0 Yes [id number] Use BID, [facility] gauge Misc 6-18 DX E11.9 ity o f 00:00: ([facility] [place] upon Medical insurance Branch approval) lancets 31 2019-0 Yes [id number] Use BID, [facility] gauge Misc 6-18 DX E11.9 ity o f 00:00: ([facility] [place] upon Medical insurance Branch approval) blood sugar 2019-0 Yes [id number] Use BID, Univers diagnostic 6-18 DX E11.9 ity o f (BLOOD 00:00: ([facility] [place] GLUCOSE 00 upon Medical TEST) strip insurance [facility] approval) lancets 31 2019-0 Yes [id number] Use BID, Univers gauge Misc 6-18 DX E11.9 ity o f 00:00: ([facility] [place] upon Medical insurance Branch approval) lancets 31 2019-0 Yes [id number] Use BID, [facility] gauge Misc 6-18 DX E11.9 ity o f 00:00: ([facility] [place] upon Medical insurance Branch approval) lancets 31 2019-0 Yes [id number] Use BID, [facility] gauge Misc 6-18 DX E11.9 ity o f 00:00: ([facility] [place] upon Medical insurance Branch approval) lancets 31 2019-0 Yes [id number] Use BID, Univers gauge Misc 6-18 DX E11.9 ity o f 00:00: ([facility] [place] upon Medical insurance Branch approval) lancets 31 2019-0 Yes [id number] Use BID, [facility] gauge Misc 6-18 DX E11.9 ity o f 00:00: ([facility] [place] upon Medical insurance Branch approval) lancets 31 2019-0 Yes [id number] Use BID, [facility] gauge Misc 6-18 DX E11.9 ity o f 00:00: ([facility] [place] 00 upon Medical insurance Branch approval) lancets 31 2018- Yes [id number] Use BID, [facility] gauge Misc 6-18 DX E11.9 ity o f 00:00: ([facility] [place] 00 upon Medical insurance Branch approval) lancets 31 2018- Yes [id number] Use BID, [facility] gauge Misc 6-18 DX E11.9 ity o f 00:00: ([facility] [place] upon Medical insurance Branch approval) lancets 2018- Yes [id number] Use BID, [facility] gauge Misc 6-18 DX E11.9 ity o f 00:00: ([facility] [place] upon Medical insurance Branch approval) lancets 31 2018- Yes [id number] Use BID, [facility] gauge Misc 6-18 DX E11.9 ity o f 00:00: ([facility] [place] [facility]) blood sugar 2018- 2020- No [id number] Use BID, [facility] diagnostic 09-03 DX E11.9 ity of (BLOOD 00:00: 00:00 ([facility] [place] GLUCOSE 00 :00 upon Medical TEST) strip insurance [facility] approval) blood sugar 2018- 2020- No [id number] Use BID, Univers diagnostic 18 04-01 DX E11.9 ity of (BLOOD 00:00: 00:00 ([facility] [place] GLUCOSE 00 :00 upon Medical TEST) strip insurance [employer] [facility] approval) QUEtiapine Yes 100mg Take 100 Un hunter 100 mg 6-11 mg by ity of tablet 14:44: mouth at [place] 13 bedtime. Medical Branch hydrocortis Yes 10mg Take 10 mg Univers one 10 mg 6-11 by mouth ity of tablet 14:44: every [place] 13 morning. Medical Branch tamsulosin 2018-0 Yes .4mg Take 0.4 Uni vers 0.4 mg 24 6-11 mg by ity of hr capsule 14:44: mouth [place] 13 daily. Medical Branch QUEtiapine Yes 100mg Take 100 Un hunter 100 mg 6-11 mg by ity of tablet 14:44: mouth at [place] 13 bedtime. Medical Branch hydrocortis Yes 10mg Take 10 mg Univers one 10 mg 6-11 by mouth ity of tablet 14:44: every [place] 13 morning. Medical Branch tamsulosin 2019-0 Yes .4mg Take 0.4 Uni vers 0.4 mg 24 6-11 mg by ity of hr capsule 14:44: mouth [place] 13 daily. Medical Branch QUEtiapine 2019-0 Yes 100mg Take 100 Un hunter 100 mg 6-11 mg by ity of tablet 14:44: mouth at [place] 13 bedtime. Medical Branch hydrocortis 2019-0 Yes 10mg Take 10 mg Univers one 10 mg 6-11 by mouth ity of tablet 14:44: every [place] 13 morning. Medical Branch tamsulosin 2019-0 Yes .4mg Take 0.4 Uni vers 0.4 mg 24 6-11 mg by ity of hr capsule 14:44: mouth [place] 13 daily. Medical Branch QUEtiapine 2019-0 Yes 100mg Take 100 Un hunter 100 mg 6-11 mg by ity of tablet 14:44: mouth at [place] 13 bedtime. Medical Branch hydrocortis 2019-0 Yes 10mg Take 10 mg Univers one 10 mg 6-11 by mouth ity of tablet 14:44: every [place] 13 morning. Medical Branch tamsulosin 2019-0 Yes .4mg Take 0.4 Uni vers 0.4 mg 24 6-11 mg by ity of hr capsule 14:44: mouth [place] 13 daily. Medical Branch QUEtiapine 2019-0 Yes 100mg Take 100 Un hunter 100 mg 6-11 mg by ity of tablet 14:44: mouth at [place] 13 bedtime. Medical Branch hydrocortis 2019-0 Yes 10mg Take 10 mg Univers one 10 mg 6-11 by mouth ity of tablet 14:44: every [place] 13 morning. Medical Branch hydrocortis 2019-0 Yes 10mg Take 10 mg Univers one 10 mg 6-11 by mouth ity of tablet 14:44: every [place] 13 morning. Medical Branch hydrocortis 2019-0 Yes 10mg Take 10 mg [facility] one 10 mg 6-11 by mouth ity of tablet 14:44: every [place] 13 morning. Medical Branch tamsulosin 2019-0 Yes .4mg Take 0.4 Uni vers 0.4 mg 24 6-11 mg by ity of hr capsule 14:44: mouth [place] 13 daily. Medical Branch hydrocortis 2019-0 Yes 10mg Take 10 mg [facility] one 10 mg 6-11 by mouth ity of tablet 14:44: every [place] 13 morning. Medical Branch hydrocortis 2019-0 Yes 10mg Take 10 mg [facility] one 10 mg 6-11 by mouth ity of tablet 14:44: every [place] 13 morning. Medical Branch hydrocortis 2019-0 Yes 10mg Take 10 mg [facility] one 10 mg 6-11 by mouth ity of tablet 14:44: every [place] 13 morning. Medical Branch QUEtiapine 2019-0 Yes 100mg Take 100 Un [place] 100 mg 6-11 mg by ity of tablet 14:44: mouth at [place] 13 bedtime. Medical Branch hydrocortis 2019-0 Yes 10mg Take 10 mg Univers one 10 mg 6-11 by mouth ity of tablet 14:44: every [place] 13 morning. Medical Branch hydrocortis 2019-0 Yes 10mg Take 10 mg [facility] one 10 mg 6-11 by mouth ity of tablet 14:44: every [place] 13 morning. Medical Branch hydrocortis 2019-0 Yes 10mg Take 10 mg [facility] one 10 mg 6-11 by mouth ity of tablet 14:44: every [place] 13 morning. Medical Branch hydrocortis 2019-0 Yes 10mg Take 10 mg Univers one 10 mg 6-11 by mouth ity of tablet 14:44: every [place] 13 morning. Medical Branch hydrocortis 2019-0 Yes 10mg Take 10 mg [facility] one 10 mg 6-11 by mouth ity of tablet 14:44: every [place] 13 morning. Medical Branch hydrocortis 2019-0 Yes 10mg Take 10 mg [facility] one 10 mg 6-11 by mouth ity of tablet 14:44: every [place] 13 morning. Medical Branch tamsulosin 2019-0 Yes .4mg Take 0.4 Uni vers 0.4 mg 24 6-11 mg by ity of hr capsule 14:44: mouth [place] 13 daily. Medical Branch hydrocortis 2019-0 Yes 10mg Take 10 mg [facility] one 10 mg 6-11 by mouth ity of tablet 14:44: every [place] 13 morning. Medical Branch hydrocortis 2019-0 Yes 10mg Take 10 mg [facility] one 10 mg 6-11 by mouth ity of tablet 14:44: every [place] 13 morning. Medical Branch hydrocortis 2019-0 Yes 10mg Take 10 mg [facility] one 10 mg 6-11 by mouth ity of tablet 14:44: every [place] 13 morning. Medical Branch hydrocortis 2019-0 Yes 10mg Take 10 mg [facility] one 10 mg 6-11 by mouth ity of tablet 14:44: every [place] 13 morning. Medical Branch QUEtiapine 2019-0 Yes 100mg Take 100 Un [place] 100 mg 6-11 mg by ity of tablet 14:44: mouth at [place] 13 bedtime. Medical Branch hydrocortis 2019-0 Yes 10mg Take 10 mg [facility] one 10 mg 6-11 by mouth ity of tablet 14:44: every [place] 13 morning. Medical Branch hydrocortis 2019-0 Yes 10mg Take 10 mg [facility] one 10 mg 6-11 by mouth ity of tablet 14:44: every [place] 13 morning. Medical Branch hydrocortis 2019-0 Yes 10mg Take 10 mg [facility] one 10 mg 6-11 by mouth ity of tablet 14:44: every [place] 13 morning. Medical Branch hydrocortis 2019-0 Yes 10mg Take 10 mg [facility] one 10 mg 6-11 by mouth ity of tablet 14:44: every [place] 13 morning. Medical Branch tamsulosin 2019-0 Yes .4mg Take 0.4 Uni vers 0.4 mg 24 6-11 mg by ity of hr capsule 14:44: mouth [place] 13 daily. Medical Branch QUEtiapine 2019-0 Yes 100mg Take 100 Un [place] 100 mg 6-11 mg by ity of tablet 14:44: mouth at [place] 13 bedtime. Medical Branch hydrocortis 2019-0 Yes 10mg Take 10 mg Univers one 10 mg 6-11 by mouth ity of tablet 14:44: every [place] 13 morning. Medical Branch tamsulosin 2019-0 Yes .4mg Take 0.4 Uni vers 0.4 mg 24 6-11 mg by ity of hr capsule 14:44: mouth [place] 13 daily. Medical Branch QUEtiapine 2019-0 Yes 100mg Take 100 Un [place] 100 mg 6-11 mg by ity of tablet 14:44: mouth at [place] 13 bedtime. Medical Branch hydrocortis 2019-0 Yes 10mg Take 10 mg [facility] one 10 mg 6-11 by mouth ity of tablet 14:44: every [place] 13 morning. Medical Branch tamsulosin 2019-0 Yes .4mg Take 0.4 Uni vers 0.4 mg 24 6-11 mg by ity of hr capsule 14:44: mouth [place] 13 daily. Medical Branch gabapentin 2019-0 Yes [id number] 300mg Take 1 Univers 300 mg 6-11 capsule by ity of capsule 00:00: mouth 3 [place] 00 (three) Medical times Branch daily. gabapentin 2018- Yes [id number] 300mg Take 1 Univers 300 mg 6-11 capsule by ity of capsule 00:00: mouth 3 [place] 00 (three) Medical times Branch daily. gabapentin 2018- Yes [id number] 300mg Take 1 Univers 300 mg 6-11 capsule by ity of capsule 00:00: mouth 3 [place] 00 (three) Medical times Branch daily. gabapentin 2018- 2019- No [id number] 300mg Take 1 Univers 300 mg 6-11 -27 capsule by ity of capsule 00:00: 00:00 mouth 3 [place] 00 :00 (three) Medical times Branch daily. gabapentin 2018- 2019- No [id number] 300mg Take 1 Univers 300 mg 6-11 - capsule by ity of capsule 00:00: 00:00 mouth 3 [place] 00 :00 (three) Medical times Branch daily. gabapentin 2018- 2019- No [id number] 300mg Take 1 Univers 300 mg 6-01 24- capsule by ity of capsule 00:00: 00:00 mouth 3 [place] 00 :00 (three) Medical times Branch daily. TENS unit 2018-0 Yes [id number] 1{kit} 1 Kit Univers and 4-09 daily. ity of electrodes 00:00: [facility] 00 Medical Branch TENS unit 2018-0 Yes [id number] 1{kit} 1 Kit Univers and 4-09 daily. ity of electrodes 00:00: [facility] 00 Medical Branch TENS unit 2018-0 Yes [id number] 1{kit} 1 Kit Univers and 4-09 daily. ity of electrodes 00:00: [facility] 00 Medical Branch TENS unit 2018-0 2019- No [id number] 1{kit} 1 Kit Univers and 4- 08-27 daily. ity of electrodes 00:00: 00:00 [facility] 00 :00 Medical Branch TENS unit 2018-0 2019- No [id number] 1{kit} 1 Kit Univers and 4- 08-27 daily. ity of electrodes 00:00: 00:00 [facility] 00 :00 Medical Branch TENS unit 2018-0 2019- No [id number] 1{kit} 1 Kit Univers and 4 08-27 daily. ity of electrodes 00:00: 00:00 [place] [facility] 00 :00 Medical Branch levETIRAcet 2019-0 Yes [id number] 500mg Take 1 Univers am 500 mg 1-25 tablet by ity o f tablet 00:00: mouth 2 [place] (two) Medical times Branch daily. levETIRAcet 2018-0 Yes [id number] 500mg Take 1 Univers am 500 mg 1-25 tablet by ity o f tablet 00:00: [facility] [place] (two) Medical times Branch daily. levETIRAcet 2018-0 Yes [id number] 500mg Take 1 Univers am 500 mg 1-25 tablet by ity o f tablet 00:00: [facility] [place] (two) Medical times Branch daily. levETIRAcet 2018-0 Yes [id number] 500mg Take 1 Univers am 500 mg 1-25 tablet by ity o f tablet 00:00: [facility] [place] (two) Medical times Branch daily. levETIRAcet 2018- Yes [id number] 500mg Take 1 Univers am 500 mg 1-25 tablet by ity o f tablet 00:00: [address] (two) Medical times Branch daily. levETIRAcet 2018- Yes [id number] 500mg Take 1 Univers am 500 mg 1-25 tablet by ity o f tablet 00:00: [address] (two) Medical times Branch daily. levETIRAcet 2018-0 Yes [id number] 500mg Take 1 Univers am 500 mg 1-25 tablet by ity o f tablet 00:00: [address] (two) Medical times Branch daily. levETIRAcet 2018-0 Yes [id number] 500mg Take 1 Univers am 500 mg 1-25 tablet by ity o f tablet 00:00: [facility] [place] (two) Medical times Branch daily. levETIRAcet 2018-0 Yes [id number] 500mg Take 1 Univers am 500 mg 1-25 tablet by ity o f tablet 00:00: [address] (two) Medical times Branch daily. levETIRAcet 2018-0 2020- No [id number] 500mg Take 1 Univers am 500 mg 1-25 01-14 tablet by ity of tablet 00:00: 00:[address] 00 :00 (two) Medical times Branch daily. levETIRAcet 2018-0 2020- No [id number] 500mg Take 1 Univers am 500 mg 1-25 04-01 tablet by ity of tablet 00:00: 00:00 mouth 2 [place] 00 :00 (two) Medical times Branch daily. atorvastati 2017-03 Yes [id number] 80mg Take 1 Univers n 80 mg 0-19 tablet by ity of tablet 00:00: mouth at [place] 00 bedtime. Medical Branch SERTraline 2017-03 Yes [id number] 100mg Take 1 Univers 100 mg 0-19 tablet by ity of tablet 00:00: mouth [place] 00 every Medical morning. Branch metFORMIN 2017-03 Yes [id number] 1000mg Take 1 Univers 1,000 mg 0-19 tablet by ity of tablet 00:00: mouth 2 00 (two) Medical times Branch daily with meals. atorvastati 2017-03 Yes [id number] 80mg Take 1 Univers n 80 mg 0-19 tablet by ity of tablet 00:00: mouth at [place] 00 bedtime. Medical Branch SERTraline 2017-03 Yes [id number] 100mg Take 1 Univers 100 mg 0-19 tablet by ity of tablet 00:00: mouth [place] 00 every Medical morning. Branch metFORMIN 2017-03 Yes [id number] 1000mg Take 1 Univers 1,000 mg 0-19 tablet by ity of tablet 00:00: mouth 2 00 (two) Medical times Branch daily with meals. atorvastati 2017-03 Yes [id number] 80mg Take 1 Univers n 80 mg 0-19 tablet by ity of tablet 00:00: mouth at [place] 00 bedtime. Medical Branch SERTraline 2017-03 Yes [id number] 100mg Take 1 Univers 100 mg 0-19 tablet by ity of tablet 00:00: mouth [place] 00 every Medical morning. Branch metFORMIN 2017-03 Yes [id number] 1000mg Take 1 Univers 1,000 mg 0-19 tablet by ity of tablet 00:00: mouth 2 [place] 00 (two) Medical times Branch daily with meals. atorvastati 2017-03 Yes [id number] 80mg Take 1 Univers n 80 mg 0-19 tablet by ity of tablet 00:00: mouth at [place] 00 bedtime. Medical Branch SERTraline 2017-03 Yes [id number] 100mg Take 1 Univers 100 mg 0-19 tablet by ity of tablet 00:00: mouth [place] 00 every Medical morning. Branch metFORMIN 2017-03 Yes [id number] 1000mg Take 1 Univers 1,000 mg 0-19 tablet by ity of tablet 00:00: mouth 2 (two) Medical times Branch daily with meals. atorvastati 2017-03 Yes [id number] 80mg Take 1 Univers n 80 mg 0-19 tablet by ity of tablet 00:00: mouth at [place] 00 bedtime. Medical Branch SERTraline 2017-03 Yes [id number] 100mg Take 1 Univers 100 mg 0-19 tablet by ity of tablet 00:00: mouth [place] 00 every Medical morning. Branch metFORMIN 2017-03 Yes [id number] 1000mg Take 1 Univers 1,000 mg 0-19 tablet by ity of tablet 00:00: mouth 2 (two) Medical times Branch daily with meals. atorvastati 2017-03 Yes [id number] 80mg Take 1 Univers n 80 mg 0-19 tablet by ity of tablet 00:00: mouth at [place] 00 bedtime. Medical Branch SERTraline 2017-03 Yes [id number] 100mg Take 1 Univers 100 mg 0-19 tablet by ity of tablet 00:00: mouth [place] 00 every Medical morning. Branch metFORMIN 2017-03 Yes [id number] 1000mg Take 1 Univers 1,000 mg 0-19 tablet by ity of tablet 00:00: mouth 2 (two) Medical times Branch daily with meals. atorvastati 2017-03 Yes [id number] 80mg Take 1 Univers n 80 mg 0-19 tablet by ity of tablet 00:00: mouth at [place] 00 bedtime. Medical Branch SERTraline 2017-03 Yes [id number] 100mg Take 1 Univers 100 mg 0-19 tablet by ity of tablet 00:00: mouth [place] 00 every Medical morning. Branch metFORMIN 2017-03 Yes [id number] 1000mg Take 1 Univers 1,000 mg 0-19 tablet by ity of tablet 00:00: mouth 2 (two) Medical times Branch daily with meals. atorvastati 2017-03 Yes [id number] 80mg Take 1 Univers n 80 mg 0-19 tablet by ity of tablet 00:00: mouth at [place] 00 bedtime. Medical Branch SERTraline 2017-03 Yes [id number] 100mg Take 1 [facility] 100 mg 0-19 tablet by ity of tablet 00:00: mouth [place] 00 every Medical morning. Branch metFORMIN 2017-03 Yes [id number] 1000mg Take 1 Univers 1,000 mg 0-19 tablet by ity of tablet 00:00: mouth 2 [place] 00 (two) Medical times Branch daily with meals. atorvastati 2017-03 Yes [id number] 80mg Take 1 Univers n 80 mg 0-19 tablet by ity of tablet 00:00: mouth at [place] 00 bedtime. Medical Branch SERTraline 2017-03 Yes [id number] 100mg Take 1 [facility] 100 mg 0-19 tablet by ity of tablet 00:00: mouth [place] 00 every Medical morning. Branch metFORMIN 2017-03 Yes [id number] 1000mg Take 1 Univers 1,000 mg 0-19 tablet by ity of tablet 00:00: mouth 2 [place] 00 (two) Medical times Branch daily with meals. atorvastati 2017-03 2020- No [id number] 80mg Take 1 Univers n 80 mg 0-19 01-14 tablet by ity of tablet 00:00: 00:00 mouth at [place] 00 :00 bedtime. Medical Branch SERTraline 2017-03 2020- No [id number] 100mg Take 1 Univers 100 mg 0-19 01-14 tablet by ity of tablet 00:00: 00:00 mouth [place] 00 :00 every Medical morning. Branch metFORMIN 2017-03 2020- No [id number] 1000mg Take 1 Univers 1,000 mg 0-19 01-14 tablet by ity o f tablet 00:00: 00:00 mouth 2 [place] 00 :00 (two) Medical times Branch daily with meals. atorvastati 2017-03 2020- No [id number] 80mg Take 1 Univers n 80 mg 0-19 01-14 tablet by ity of tablet 00:00: 00:00 mouth at [place] 00 :00 bedtime. Medical Branch SERTraline 2017-03 2020- No [id number] 100mg Take 1 Univers 100 mg 0-19 01-14 tablet by ity of tablet 00:00: 00:00 mouth [place] 00 :00 every Medical morning. Branch metFORMIN 2017-03 2020- No [id number] 1000mg Take 1 Univers 1,000 mg 0-19 01-14 tablet by ity o f tablet 00:00: 00:00 mouth 2 [place] 00 :00 (two) Medical times Branch daily with meals. TENS UNIT 2016-03 Yes [id number] Use TENS Univers ELECTRODES 1-22 unit at ity of (TENS UNITS 00:00: least 2 [place] as ELECTRODES) 00 times a Medic al 2X2 " Pads day as Branch needed for pain. TENS UNIT 2016-03 Yes [id number] Use TENS Univers ELECTRODES 1-22 unit at ity of (TENS UNITS 00:00: least 2 [place] as ELECTRODES) 00 times a Medic al 2X2 " Pads day as Branch needed for pain. TENS UNIT 2016-03 Yes [id number] Use TENS Univers ELECTRODES 1-22 unit at ity of (TENS UNITS 00:00: least 2 [place] as ELECTRODES) 00 times a Medic al 2X2 " Pads day as Branch needed for pain. TENS UNIT 2016-03 Yes [id number] Use TENS Univers ELECTRODES 1-22 unit at ity of (TENS UNITS 00:00: least 2 [place] as ELECTRODES) 00 times a Medic al 2X2 " Pads day as Branch needed for pain. TENS UNIT 2016-03 Yes [id number] Use TENS Univers ELECTRODES 1-22 unit at ity of (TENS UNITS 00:00: least 2 [place] as ELECTRODES) 00 times a Medic al 2X2 " Pads day as Branch needed for pain. TENS UNIT 2016-03 Yes [id number] Use TENS Univers ELECTRODES 1-22 unit at ity of (TENS UNITS 00:00: least 2 [place] as ELECTRODES) 00 times a Medic al 2X2 " Pads day as Branch needed for pain. TENS UNIT 2016-03 Yes [id number] Use TENS Univers ELECTRODES 1-22 unit at ity of (TENS UNITS 00:00: least 2 [place] as ELECTRODES) 00 times a Medic al 2X2 " Pads day as Branch needed for pain. TENS UNIT 2016-03 Yes [id number] Use TENS Univers ELECTRODES 1-22 unit at ity of (TENS UNITS 00:00: least 2 [place] as ELECTRODES) 00 times a Medic al 2X2 " Pads day as Branch needed for pain. TENS UNIT 2016- Yes [id number] Use TENS Univers ELECTRODES 1-22 unit at ity of (TENS UNITS 00:00: least 2 [place] as ELECTRODES) 00 times a Medic al 2X2 " Pads day as Branch needed for pain. TENS UNIT 2016-03 Yes [id number] Use TENS Univers ELECTRODES 1-22 unit at ity of (TENS UNITS 00:00: least 2 [place] as ELECTRODES) 00 times a Medic al 2X2 " Pads day as Branch needed for pain. TENS UNIT 2016-03 Yes [id number] Use TENS Univers ELECTRODES 1-22 unit at ity of (TENS UNITS 00:00: least 2 [place] as ELECTRODES) 00 times a Medic al 2X2 " Pads day as Branch needed for pain. TENS UNIT 2016-03 Yes [id number] Use TENS Univers ELECTRODES 1-22 unit at ity of (TENS UNITS 00:00: least 2 [place] as ELECTRODES) 00 times a Medic al 2X2 " [facility]ads [place] as Branch needed for pain. TENS UNIT 2016-03 Yes [id number] Use TENS Univers ELECTRODES 1-22 unit at ity of (TENS UNITS 00:00: least 2 [place] as ELECTRODES) 00 times a Medic al 2X2 " Pads day as Branch needed for pain. TENS UNIT 2016-03 Yes [id number] Use TENS Univers ELECTRODES 1-22 unit at ity of (TENS UNITS 00:00: least 2 [place] as ELECTRODES) 00 times a Medic al 2X2 " Pads day as Branch needed for pain. TENS UNIT 2016-03 Yes [id number] Use TENS Univers ELECTRODES 1-22 unit at ity of (TENS UNITS 00:00: least 2 [place] as ELECTRODES) 00 times a Medic al 2X2 " Pads day as Branch needed for pain. TENS UNIT 2016-03 Yes [id number] Use TENS Univers ELECTRODES 1-22 unit at ity of (TENS UNITS 00:00: least 2 [place] as ELECTRODES) 00 times a Medic al 2X2 " Pads day as Branch needed for pain. TENS UNIT 2016-03 Yes [id number] Use TENS Univers ELECTRODES 1-22 unit at ity of (TENS UNITS 00:00: least 2 [place] as ELECTRODES) 00 times a Medic al 2X2 " Pads day as Branch needed for pain. TENS UNIT 2016-03 Yes [id number] Use TENS Univers ELECTRODES 1-22 unit at ity of (TENS UNITS 00:00: least 2 [place] as ELECTRODES) 00 times a Medic al 2X2 " Pads day as Branch needed for pain. TENS UNIT 2016-03 Yes [id number] Use TENS Univers ELECTRODES 1-22 unit at ity of (TENS UNITS 00:00: least 2 [place] as ELECTRODES) 00 times a Medic al 2X2 " Pads day as Branch needed for pain. TENS UNIT 2016-03 Yes [id number] Use TENS Univers ELECTRODES 1-22 unit at ity of (TENS UNITS 00:00: least 2 [place] as ELECTRODES) 00 times a Medic al 2X2 " Pads day as Branch needed for pain. TENS UNIT 2016-03 Yes [id number] Use TENS Univers ELECTRODES 1-22 unit at ity of (TENS UNITS 00:00: least 2 [place] as ELECTRODES) 00 times a Medic al 2X2 " Pads day as Branch needed for pain. TENS UNIT 2016-03 Yes [id number] Use TENS [facility] ELECTRODES 1-22 unit at ity of (TENS UNITS 00:00: least 2 [place] as ELECTRODES) 00 times a Medic al 2X2 " Pads day as Branch needed for pain. TENS UNIT 2016-03 Yes [id number] Use TENS [facility] ELECTRODES 1-22 unit at ity of (TENS UNITS 00:00: least 2 [place] as ELECTRODES) 00 times a Medic al 2X2 " Pads day as Branch needed for pain. TENS UNIT 2016-03 Yes [id number] Use TENS [facility] ELECTRODES 1-22 unit at ity of (TENS UNITS 00:00: least 2 [place] as ELECTRODES) 00 times a Medic al 2X2 " Pads day as Branch needed for pain. TENS UNIT 2016-03 Yes [id number] Use TENS [facility] ELECTRODES 1-22 unit at ity of (TENS UNITS 00:00: least 2 [place] as ELECTRODES) 00 times a Medic al 2X2 " Pads day as Branch needed for pain. TENS UNIT 2016-03 Yes [id number] Use TENS Univers ELECTRODES 1-22 unit at ity of (TENS UNITS 00:00: least 2 [place] as ELECTRODES) 00 times a Medic al 2X2 " Pads day as Branch needed for pain. TENS UNIT 2016-03 Yes [id number] Use TENS [facility] ELECTRODES 1-22 unit at ity of (TENS UNITS 00:00: least 2 [place] as ELECTRODES) 00 times a Medic al 2X2 " Pads day as Branch needed for pain. TENS UNIT 2016-03 Yes [id number] Use TENS [facility] ELECTRODES 1-22 unit at ity of (TENS UNITS 00:00: least 2 [place] as ELECTRODES) 00 times a Medic al 2X2 " Pads day as Branch needed for pain. TENS UNIT 2016- Yes [id number] Use TENS [facility] ELECTRODES 1-22 unit at ity of (TENS UNITS 00:00: least 2 [place] as ELECTRODES) 00 times a Medic al 2X2 " Pads day as Branch needed for pain. TENS UNIT 2016- Yes [id number] Use TENS [facility] ELECTRODES 1-22 unit at ity of (TENS UNITS 00:00: least 2 [place] as ELECTRODES) 00 times a Medic al 2X2 " Pads day as Branch needed for pain. TENS UNIT 2016-03 Yes [id number] Use TENS [facility] ELECTRODES 1-22 unit at ity of (TENS UNITS 00:00: least 2 [place] as ELECTRODES) 00 times a Medic al 2X2 " Pads day as Branch needed for pain. TENS UNIT 2016-03 Yes [id number] Use TENS [facility] ELECTRODES 1-22 unit at ity of (TENS UNITS 00:00: least 2 [place] as ELECTRODES) 00 times a Medic al 2X2 " Pads day as Branch needed for pain. TENS UNIT 2016-03 Yes [id number] Use TENS [facility] ELECTRODES 1-22 unit at ity of (TENS UNITS 00:00: least 2 [place] as ELECTRODES) 00 times a Medic al 2X2 " Pads day as Branch needed for pain. TENS UNIT 2016-03 Yes [id number] Use TENS [facility] ELECTRODES 1-22 unit at ity of (TENS UNITS 00:00: least 2 [place] as ELECTRODES) 00 times a Medic al 2X2 " Pads day as Branch needed for pain. TENS UNIT 2016-03 Yes [id number] Use TENS [facility] ELECTRODES 1-22 unit at ity of (TENS UNITS 00:00: least 2 [place] as ELECTRODES) 00 times a Medic al 2X2 " Pads day as Branch needed for pain. TENS UNIT 2016-03 Yes [id number] Use TENS [facility] ELECTRODES 1-22 unit at ity of (TENS UNITS 00:00: least 2 [place] as ELECTRODES) 00 times a Medic al 2X2 " Pads day as Branch needed for pain. TENS UNIT 2016-03 Yes [id number] Use TENS [facility] ELECTRODES 1-22 unit at ity of (TENS UNITS 00:00: least 2 [place] as ELECTRODES) 00 times a Medic al 2X2 " Pads day as Branch needed for pain. TENS UNIT 2016-03 Yes [id number] Use TENS [facility] ELECTRODES 1-22 unit at ity of (TENS UNITS 00:00: least 2 [place] as ELECTRODES) 00 times a Medic al 2X2 " Pads day as Branch needed for pain. TENS UNIT 2016- Yes [id number] Use TENS [facility] ELECTRODES 1-22 unit at ity of (TENS UNITS 00:00: least 2 [place] as ELECTRODES) 00 times a Medic al 2X2 " Pads day as Branch needed for pain. TENS UNIT 2016-03 Yes [id number] Use TENS [facility] ELECTRODES 1-22 unit at ity of (TENS UNITS 00:00: least 2 [place] as ELECTRODES) 00 times a Medic al 2X2 " Pads day as Branch needed for pain. TENS UNIT 2016-03 Yes [id number] Use TENS [facility] ELECTRODES 1-22 unit at ity of (TENS UNITS 00:00: least 2 [place] as ELECTRODES) 00 times a Medic al 2X2 " Pads day as Branch needed for pain. TENS UNIT 2016-03 Yes [id number] Use TENS [facility] ELECTRODES 1-22 unit at ity of (TENS UNITS 00:00: least 2 [place] as ELECTRODES) 00 times a Medic al 2X2 " Pads day as Branch needed for pain. TENS UNIT 2016-03 Yes [id number] Use TENS [facility] ELECTRODES 1-22 unit at ity of (TENS UNITS 00:00: least 2 [place] as ELECTRODES) 00 times a Medic al 2X2 " Pads day as Branch needed for pain. TENS UNIT 2016-03 Yes [id number] Use TENS [facility] ELECTRODES 1-22 unit at ity of (TENS UNITS 00:00: least 2 [place] as ELECTRODES) 00 times a Medic al 2X2 " Pads day as Branch needed for pain. TENS UNIT 2016-03 Yes [id number] Use TENS [facility] ELECTRODES 1-22 unit at ity of (TENS UNITS 00:00: least 2 [place] as ELECTRODES) 00 times a Medic al 2X2 " Pads day as Branch needed for pain. TENS UNIT 2016-03 Yes [id number] Use TENS [facility] ELECTRODES 1-22 unit at ity of (TENS UNITS 00:00: least 2 [place] as ELECTRODES) 00 times a Medic al 2X2 " Pads day as Branch needed for pain. TENS UNIT 2016-03 Yes [id number] Use TENS [facility] ELECTRODES 1-22 unit at ity of (TENS UNITS 00:00: least 2 [place] as ELECTRODES) 00 times a Medic al 2X2 " Pads day as Branch needed for pain. TENS UNIT 2016-03 Yes [id number] Use TENS [facility] ELECTRODES 1-22 unit at ity of (TENS UNITS 00:00: least 2 [place] as ELECTRODES) 00 times a Medic al 2X2 " Pads day as Branch needed for pain. TENS UNIT 2016- Yes [id number] Use TENS [facility] ELECTRODES 1-22 unit at ity of (TENS UNITS 00:00: least 2 [place] as ELECTRODES) 00 times a Medic al 2X2 " Pads day as Branch needed for pain. TENS UNIT 2016-03 Yes [id number] Use TENS [facility] ELECTRODES 1-22 unit at ity of (TENS UNITS 00:00: least 2 [place] as ELECTRODES) 00 times a Medic al 2X2 " Pads day as Branch needed for pain. TENS UNIT 2016-03 Yes [id number] Use TENS [facility] ELECTRODES 1-22 unit at ity of (TENS UNITS 00:00: least 2 [place] as ELECTRODES) 00 times a Medic al 2X2 " Pads day as Branch needed for pain. TENS UNIT 2016-03 Yes [id number] Use TENS [facility] ELECTRODES 1-22 unit at ity of (TENS UNITS 00:00: least 2 [place] as ELECTRODES) 00 times a Medic al 2X2 " Pads day as Branch needed for pain. TENS UNIT 2016-03 Yes [id number] Use TENS Univers ELECTRODES 1-22 unit at ity of (TENS UNITS 00:00: least 2 [place] as ELECTRODES) 00 times a Medic al 2X2 " Pads day as Branch needed for pain. TENS UNIT 2016-03 Yes [id number] Use TENS [facility] ELECTRODES 1-22 unit at ity of (TENS UNITS 00:00: least 2 [place] as ELECTRODES) 00 times a Medic al 2X2 " Pads day as Branch needed for pain. TENS UNIT 2016-03 Yes [id number] Use TENS Univers ELECTRODES 1-22 unit at ity of (TENS UNITS 00:00: least 2 [place] as ELECTRODES) 00 times a Medic al 2X2 " Pads day as Branch needed for pain. TENS UNIT 2016-03 Yes [id number] Use TENS [facility] ELECTRODES 1-22 unit at ity of (TENS UNITS 00:00: least 2 [place] as ELECTRODES) 00 times a Medic al 2X2 " Pads day as Branch needed for pain. TENS UNIT 2016-03 Yes [id number] Use TENS Univers ELECTRODES 1-22 unit at ity of (TENS UNITS 00:00: least 2 [place] as ELECTRODES) 00 times a Medic al 2X2 " Pads day as Branch needed for pain. TENS UNIT 2016- Yes [id number] Use TENS Univers ELECTRODES 1-22 unit at ity of (TENS UNITS 00:00: least 2 [place] as ELECTRODES) 00 times a Medic al 2X2 " Pads day as Branch needed for pain. TENS UNIT 2016-03 Yes [id number] Use TENS Univers ELECTRODES 1-22 unit at ity of (TENS UNITS 00:00: least 2 [place] as ELECTRODES) 00 times a Medic al 2X2 " Pads day as Branch needed for pain. TENS UNIT 2016-03 Yes [id number] Use TENS Univers ELECTRODES 1-22 unit at ity of (TENS UNITS 00:00: least 2 [place] as ELECTRODES) 00 times a Medic al 2X2 " Pads day as Branch needed for pain. TENS UNIT 2016-03 Yes [id number] Use TENS Univers ELECTRODES 1-22 unit at ity of (TENS UNITS 00:00: least 2 [place] as ELECTRODES) 00 times a Medic al 2X2 " Pads day as Branch needed for pain. TENS UNIT 2016-03 Yes [id number] Use TENS Univers ELECTRODES 1-22 unit at ity of (TENS UNITS 00:00: least 2 [place] as ELECTRODES) 00 times a Medic al 2X2 " Pads day as Branch needed for pain. TENS UNIT 2016-03 Yes [id number] Use TENS Univers ELECTRODES 1-22 unit at ity of (TENS UNITS 00:00: least 2 [place] as ELECTRODES) 00 times a Medic al 2X2 " Pads day as Branch needed for pain. TENS UNIT 2016-03 Yes [id number] Use TENS Univers ELECTRODES 1-22 unit at ity of (TENS UNITS 00:00: least 2 [place] as ELECTRODES) 00 times a Medic al 2X2 " Pads day as Branch needed for pain. TENS UNIT 2016-03 Yes [id number] Use TENS Univers ELECTRODES 1-22 unit at ity of (TENS UNITS 00:00: least 2 [place] as ELECTRODES) 00 times a Medic al 2X2 " Pads day as Branch needed for pain. TENS UNIT 2016-03 Yes [id number] Use TENS Univers ELECTRODES 1-22 unit at ity of (TENS UNITS 00:00: least 2 [place] as ELECTRODES) 00 times a Medic al 2X2 " Pads day as Branch needed for pain. metformin Yes [id number] 500mg Take 1 Univers ER 500 mg 9-08 tablet by ity o f 24 hr 00:00: mouth [place] tablet 00 daily with Medical breakfast. Branch metformin Yes [id number] 500mg Take 1 Univers ER 500 mg 9-08 tablet by ity o f 24 hr 00:00: mouth [place] tablet 00 daily with Medical breakfast. Branch metformin Yes [id number] 500mg Take 1 Univers ER 500 mg 9-08 tablet by ity o f 24 hr 00:00: mouth [place] tablet 00 daily with Medical breakfast. Branch metformin Yes [id number] 500mg Take 1 Univers ER 500 mg 9-08 tablet by ity o f 24 hr 00:00: mouth [place] tablet 00 daily with Medical breakfast. Branch metformin Yes [id number] 500mg Take 1 Univers ER 500 mg 9-08 tablet by ity o f 24 hr 00:00: mouth [place] tablet 00 daily with Medical breakfast. Branch metformin Yes [id number] 500mg Take 1 Univers ER 500 mg 9-08 tablet by ity o f 24 hr 00:00: mouth [place] tablet 00 daily with Medical breakfast. Branch metformin Yes [id number] 500mg Take 1 Univers ER 500 mg 9-08 tablet by ity o f 24 hr 00:00: mouth [place] tablet 00 daily with Medical breakfast. Branch metformin Yes [id number] 500mg Take 1 Univers ER 500 mg 9-08 tablet by ity o f 24 hr 00:00: mouth [place] tablet 00 daily with Medical breakfast. Branch metformin Yes [id number] 500mg Take 1 Univers ER 500 mg 9-08 tablet by ity o f 24 hr 00:00: mouth [place] tablet 00 daily with Medical breakfast. Branch metformin Yes [id number] 500mg Take 1 Univers ER 500 mg 9-08 tablet by ity o f 24 hr 00:00: mouth [place] tablet 00 daily with Medical breakfast. Branch metformin Yes [id number] 500mg Take 1 Univers ER 500 mg 9-08 tablet by ity o f 24 hr 00:00: mouth [place] tablet 00 daily with Medical breakfast. Branch metformin Yes [id number] 500mg Take 1 Univers ER 500 mg 9-08 tablet by ity o f 24 hr 00:00: mouth [place] tablet 00 daily with Medical breakfast. Branch metformin Yes [id number] 500mg Take 1 Univers ER 500 mg 9-08 tablet by ity o f 24 hr 00:00: mouth [place] tablet 00 daily with Medical breakfast. Branch metformin Yes [id number] 500mg Take 1 Univers ER 500 mg 9-08 tablet by ity o f 24 hr 00:00: mouth [place] tablet 00 daily with Medical breakfast. Branch metformin 2019- No [id number] 500mg Take 1 Univers ER 500 mg 9-08 - tablet by ity of 24 hr 00:00: 00:00 mouth [place] tablet 00 :00 daily with Medical breakfast. Branch metformin 2019- No [id number] 500mg Take 1 Univers ER 500 mg 9-08 01-29 tablet by ity of 24 hr 00:00: 00:00 mouth [place] tablet 00 :00 daily with Medical breakfast. Branch Vital Signs Vital Name Observation Time Observation Value Comments Source Systolic blood 2021-07-26 17:21:00 146 mm[Hg] Univer sity of pressure [facility] Diastolic blood 2021-07-26 17:21:00 95 mm[Hg] Unive rsity of [facility] Heart rate 2021-07-26 17:21:00 71 /min Universi ty of [facility] Branch Respiratory rate 2021-07-26 17:21:00 18 /min Univ ersity of [facility] Oxygen saturation in 2021-07-26 17:21:00 93 /min University of Arterial blood by [place] [employer] cheryl Pulse oximetry Branch Body temperature 2021-07-26 14:32:00 37.17 Tereza Univ ersity of [facility] Body height 2021-07-26 14:32:00 175.3 cm [facility] [place] [facility] [place] Body weight 2021-07-26 14:32:00 122.471 kg [facility] [place] [facility] BMI 2021-07-26 14:32:00 39.87 kg/m2 Universi ty of [facility] Branch Systolic blood 2021-07-14 02:00:00 158 mm[Hg] Univer sity of [facility] Diastolic blood 2021-07-14 02:00:00 94 mm[Hg] Unive rsity of [facility] Heart rate 2021-07-14 02:00:00 59 /min Universi ty of [facility] Branch Respiratory rate 2021-07-14 02:00:00 16 /min Univ ersity of [facility] Branch Oxygen saturation in 2021-07-14 02:00:00 93 /min University of Arterial blood by [place] [employer] cheryl Pulse oximetry Branch Body temperature 2021-07-13 23:38:00 36.44 Tereza Univ ersity of [facility] Branch Body height 2021-07-13 23:38:00 175.3 cm [facility] [place] [facility] Body weight 2021-07-13 23:38:00 122.471 kg Universi ty of [facility] Branch BMI 2021-07-13 23:38:00 39.87 kg/m2 [facility] [place] [facility] Systolic blood 2021-06-08 18:00:00 118 mm[Hg] Univer sity of pressure [place] [facility] Diastolic blood 2021-06-08 18:00:00 80 mm[Hg] Unive rsity of pressure [place] [facility] Heart rate 2021-06-08 18:00:00 73 /min [facility] [place] [facility] Respiratory rate 2021-06-08 18:00:00 20 /min Univ ersity [facility] [place] [facility] Oxygen saturation in 2021-06-08 17:00:00 95 /min University of Arterial blood by [facility] Pulse oximetry Branch Body temperature 2021-06-08 16:22:00 35.83 Treeza Univ ers[facility] [place] [facility] Body height 2021-06-08 16:19:00 175.3 cm [facility] [place] [facility] Body weight 2021-06-08 16:19:00 118.389 kg [facility] [place] [facility] BMI 2021-06-08 16:19:00 38.54 kg/m2 [facility] [place] [facility] Systolic blood 2021-06-07 13:13:00 123 mm[Hg] Univer sity of pressure [place] [facility] Diastolic blood 2021-06-07 13:13:00 72 mm[Hg] Unive rsity of pressure [place] [facility] Heart rate 2021-06-07 13:13:00 79 /min [facility] [place] [facility] Body temperature 2021-06-07 13:13:00 36.89 Tereza Univ [facility] [place] [facility] Respiratory rate 2021-06-07 13:13:00 18 /min Univ [facility] [place] [facility] Body height 2021-06-07 13:13:00 175.3 cm [facility] [place] [facility] Body weight 2021-06-07 13:13:00 118.389 kg [facility] [place] [facility] BMI 2021-06-07 13:13:00 38.54 kg/m2 [facility] [place] [facility] Oxygen saturation in 2021-06-07 13:13:00 96 /min University of Arterial blood by [facility] Pulse oximetry Branch Systolic blood 2019 16:08:00 122 mm[Hg] Univer sity of [facility] [place] [facility] Diastolic blood 2019 16:08:00 79 mm[Hg] Unive rsity of pressure [place] [facility] Heart rate 2019 16:08:00 59 /min [facility] [place] [facility] Body temperature 2019 16:08:00 37.06 Tereza Univ [facility] [place] [facility] Respiratory rate 2019 16:08:00 18 /min Univ [facility] [place] [facility] Body height 2019 16:08:00 175.3 cm [facility] [place] [facility] Body weight 2019 16:08:00 120.203 kg [facility] [place] [facility] BMI 2019 16:08:00 39.13 kg/m2 [facility] [place] [facility] Oxygen saturation in 2019 16:08:00 96 /min University of Arterial blood by [place] [employer] Pulse oximetry Branch Systolic blood 2019-05-22 20:44:00 115 mm[Hg] Univer sity of pressure [place] [facility] Diastolic blood 2019-05-22 20:44:00 71 mm[Hg] Unive rsity of pressure [place] [facility] Heart rate 2019-05-22 20:44:00 78 /min [facility] [place] [facility] Body temperature 2019-05-22 20:44:00 36.22 Tereza Univ [facility] [place] [facility] Respiratory rate 2019-05-22 20:44:00 18 /min Univ ers[facility] [place] [facility] Body height 2019-05-22 20:44:00 175.3 cm [facility] [place] [facility] Body weight 2019-05-22 20:44:00 116.847 kg [facility] [place] [facility] BMI 2019-05-22 20:44:00 38.04 kg/m2 [facility] [place] [facility] Oxygen saturation in 2019-05-22 20:44:00 96 /min University of Arterial blood by [place] [employer] cheryl Pulse oximetry Branch Systolic blood 2019-04-08 21:46:00 123 mm[Hg] Univer sity of pressure [place] [facility] Diastolic blood 2019-04-08 21:46:00 58 mm[Hg] Unive rsity of pressure [place] [facility] Heart rate 2019-04-08 21:46:00 75 /min [facility] [place] [facility] Respiratory rate 2019-04-08 21:46:00 16 /min Univ ers[facility] [place] [facility] Oxygen saturation in 2019-04-08 21:46:00 91 /min University of Arterial blood by [facility] Pulse oximetry Branch Body temperature 2019-04-08 19:49:00 38.39 Tereza [facility] [place] [facility] [place] Body weight 2019-04-08 19:00:00 127.007 kg Universi ty of [facility] BMI 2019-04-08 19:00:00 41.35 kg/m2 Universi ty of [facility] Systolic blood 2019-04-01 16:52:00 117 mm[Hg] Univer sity of pressure [facility] Branch Diastolic blood 2019-04-01 16:52:00 71 mm[Hg] Unive rsity of pressure [facility] Heart rate 2019-04-01 16:52:00 80 /min Universi ty of [facility] Body temperature 2019-04-01 16:52:00 36.06 Tereza Univ ersity of [facility] Respiratory rate 2019-04-01 16:52:00 18 /min Univ ersity of [facility] Body height 2019-04-01 16:52:00 175.3 cm Universi ty of [facility] Body weight 2019-04-01 16:52:00 127.007 kg [facility] [place] [facility] BMI 2019-04-01 16:52:00 41.35 kg/m2 Universi ty of [facility] Branch Oxygen saturation in 2019-04-01 16:52:00 96 /min University of Arterial blood by [facility] Pulse oximetry Branch Systolic blood 2018-11-12 19:52:00 125 mm[Hg] Univer sity of pressure [facility] Diastolic blood 2018-11-12 19:52:00 83 mm[Hg] Unive rsity of pressure [facility] Heart rate 2018-11-12 19:52:00 80 /min Universi ty of [facility] Body temperature 2018-11-12 19:52:00 36.61 Tereza Univ ersity of [facility] Branch Respiratory rate 2018-11-12 19:52:00 18 /min Univ ersity of [facility] Oxygen saturation in 2018-11-12 19:52:00 95 /min University of Arterial blood by [facility] Pulse oximetry Branch Procedures Procedure Date / Time Performing Clinician Source Performed CT CERVICAL SPINE WO 2021-07-26 17:16:00 Angus Dee [place] CONTRAST [facility] CT HEAD WO CONTRAST 2021-07-26 17:16:00 Angus Dee [facility] [place] XR CHEST 1 VW 2021-07-26 16:42:27 [facility] XR FOREARM 2 VW LEFT 2021-07-26 16:42:27 Angus Dee [facility] [place] XR PELVIS <3 VW 2021-07-26 16:42:27 [facility] XR SHOULDER <2 VW LEFT 2021-07-26 16:42:27 Angus Dee [facility] XR PELVIS <3 VW 2021-07-14 01:07:[address] [facility] XR SHOULDER 2+ VW RIGHT 2021-07-14 01:07:42 Truxton [facility] [place] URINALYSIS 2021-06-08 18:31:00 Yazan [facility] URINE DRUG (IMMUNOASSAY) 2021-06-08 18:31:00 Yazan Knight [facility] Medical [facility] SCREEN W/O REFLEX CT HEAD WO CONTRAST 2021-06-08 17:06:54 Yazan Knight [facility] XR CHEST 1 VW 2021-06-08 17:03:00 Yazan [facility] AC PANEL 20 + LACTIC 2021-06-08 16:33:00 Yazan Knight [facility] ACID [facility] COVID-19 (ID NOW RAPID 2021-06-08 16:33:00 Yazan Knight [facility] TESTING) [facility] TROPONIN I 2021-06-08 16:24:00 Yazan Knight [facility] COMP. METABOLIC PANEL 2021-06-08 16:24[facility]00 [id number] ETHANOL 2021-06-08 16:24:00 Yazan [facility] PROTHROMBIN TIME / INR 2021-06-08 16:24:00 [facility] ACTIVATED PARTIAL 2021-06-08 16:24:00 Yazan Knight [facility] THRMPLAS [facility] N-TERMINAL PRO-BNP 2021-06-08 16:24:[address] [facility] CBC WITH DIFF 2021-06-08 16:23:00 Eugene [facility] CT HEAD WO CONTRAST 2021-06-07 15:37:56 Yazan Knight [facility] XR KNEE 3 VW LEFT 2021-06-07 15:19:28 Eugene [facility] XR HIPS 2 VW LEFT 2021-06-07 15:04:08 [facility] 2021-06-07 15:00:21 Yazan [facility] XR RIBS 4+ VW LEFT 2021-06-07 14:54:58 Eugene [facility] XR CHEST 1 VW 2021-06-07 14:40:39 Eugene [facility] DME/SUPPLY JUSTIFICATION 2019-09-08 05:01:00 Doctor Unassigned, No [facility] EXTERNAL PROVIDER - ADC 2019-07-03 05:01:00 Doctor Unassigned, N o [facility] DME/SUPPLY JUSTIFICATION 2019-05-28 05:01:00 Doctor Unassigned, No [facility] SLEEP STUDY DATA REPORT 2019-05-20 06:01:00 Doctor Unassigned, N o [facility] SLEEP STUDY DATA REPORT 2019-04-19 06:01:00 Doctor Unassigned, N o [facility] CT HEAD WO CONTRAST 2019-04-08 20:29:23 Mary Fleming [facility] ADC,CLC OR LCC ONLY - 2019-04-08 19:57:00 Mary [facility]Feming [facility] INFLUENZA A & B DIRECT Medical B ranch ANTIGEN ASSIGNMENT OF BENEFITS 2019-04-01 16:37:44 Doctor Unaivone, No [facility] AUTHORIZATION FOR 2018-10-21 05:01:00 Doctor Unassigned, No [facility] RELEASE [facility] Encounters Start End Encounter Admission Attending Care Care Encounter Source Date/Time Date/Time Type Type Clinicians Facility Department ID 2021-04-14 Outpatient 3 [id number] ENC[facility] CVA [id number] ENCPL 12:29:58 0713 2021-04-14 Outpatient 3 [id number] ENCPL REF [id number] ENCPL 12:29:39 0712 2021-04-13 Outpatient Lay, STLMLC STLMLC [id number] Common 13:34:27 [place] [address] [facility] 2021-04-13 Outpatient Lay, STLMLC STLMLC [id number] Common 12:32:17 Louis [address] [facility] 2021-04-13 Outpatient Lay, STLMLC STLC [id number] Common 12:29:27 Louis 97018 [facility] 2021-04-13 Outpatient Lay, STLMLC STLC [id number] Common 12:14:47 Louis 87727 [facility] 2021-04-13 Outpatient Lay, STLMLC STLC [id number] Common 12:12:29 Louis 99328 [facility] 2021-04-13 Outpatient Lay, STLMLC STLC [id number] Common 12:08:54 Louis 49428 [facility] 2021-04-13 Outpatient Lay, STLMLC STLC [id number] Common 12:05:57 Louis 76334 [facility] 2021-04-13 Outpatient Lay, STLMLC STLC [id number] Common 12:05:29 Louis 06706 [facility] 2021-04-13 Outpatient STLMLC STLC [id number] Common 12:01:10 47348 [facility] 2019-02-07 Inpatient MHTW MHTW [id number] MHT W 17:09:56 2019-02-04 Inpatient [facility] MED [id number] MHS W 02:22:00 2021-07-26 2021-07-26 Emergency X JORGE DEE ERT [id number] Univers 09:29:00 13:18:00 ANGUS butts [facility] 2021-07-26 2021-07-26 Emergency JORGE Dee 1.2.437.427 [id number] Univers 09:29:00 13:18:00 Angus SAMS 350.1.13.10 i ty [facility] 4.2.7.2.686 [facility] [id number] [address] 2021-07-13 2021-07-13 Emergency [facility] [id number] Univers 18:34:00 21:46:00 ELAINA butts [facility] 2021-07-13 2021-07-13 Emergency [facility] 1.2.336.472 [id number] Univers 18:34:00 21:46:00 Elaina SAMS 350.1.13.10 i ty of [place] 4.2.7.2.686 [facility] [id number] [address] 2021-07-05 2021-07-05 Outpatient [facility] [id number] 00:34:00 00:34:00 -[id number] [facility] 2021-07-04 2021-07-04 Outpatient [facility] [id number] 19:16:00 19:16:00 -[id number] [facility] 2021-06-26 2021-06-26 Outpatient [facility] [id number] 00:24:00 00:24:00 -[id number] [facility] 2021-06-22 2021-06-22 Outpatient [facility] [id number] 01:14:00 01:14:00 -[id number] [facility] 2021-06-08 2021-06-08 Emergency [facility] [id number] Univers 11:15:00 15:55:00 YAZAN [facility] 2021-06-08 2021-06-08 Emergency [facility] 1.2.317.954 [id number] Univers 11:15:00 15:55:00 Yazan SAMS 350.1.13.10 i ty [facility] 4.2.7.2.686 [facility] [id number] [address] 2021-06-07 2021-06-07 Emergency [facility] E[facility] [id number] Univers 08:16:00 12:53:00 YAZAN [facility] 2021-06-07 2021-06-07 [place] 1.2.859.797 [id number] Univers 08:16:00 12:53:00 Yazan SAMS 350.1.13.10 i Ric 4.2.7.2.686 [facility] [id number] [place] [address] [place] 2021-06-06 2021-06-06 Telephone Konrad Field [facility] 6400 1.2.840.114 [id number] [place] 00:00:00 00:00:[address] 350.1.13.58 Health 9.2.7.2.686 [id number] 0 2021-04-28 2021-04-28 Outpatient [facility] [id number] 18:14:00 18:14:00 -[id number] [facility] 2021-04-22 2021-04-22 Outpatient [facility] [id number] 00:32:00 00:32:00 -[id number] [facility] 2021-04-19 2021-04-19 Outpatient [facility] [id number] 00:59:00 00:59:00 -[id number] [facility] 2021-04-18 2021-04-18 Outpatient [facility] [id number] 18:02:00 18:02:00 -[id number] [facility] 2021-01-20 2021-01-20 ambulatory STLMLC STLMLC [id number] Common 00:00:00 00:00:00 [facility] 2020-11-08 2020-11-08 EXT MHH OP Aaron, EXT MSRDP 1.2.840.114 [id number] [place] 00:00:00 00:00:00 Missy LOCATION 350.1.13.58 H ealth 9.2.7.2.686 [id number] 2020-08-26 2020-08-26 Outpatient STLMLC STLMLC [id number] Common 00:00:00 00:00:00 [facility] 2020-06-07 2020-06-07 Outpatient STLMLC STLMLC [id number] Common 00:00:00 00:00:00 [facility] 2020-05-10 2020-05-10 Outpatient STLMLC STLMLC [id number] Common 00:00:00 00:00:00 [facility] 2020-04-28 2020-04-28 Outpatient STLMLC STLMLC [id number] Common 00:00:00 00:00:00 [facility] 2020-04-27 2020-04-27 Outpatient STLMLC STLMLC [id number] Common 00:00:00 00:00:00 [facility] 2020-04-22 2020-04-22 Outpatient STLMLC STLMLC [id number] Common 00:00:00 00:00:00 [facility] 2020-04-06 2020-04-06 Outpatient STLMLC STLMLC [id number] Common 00:00:00 00:00:00 [facility] 2020-04-02 2020-04-02 Outpatient STLMLC STLMLC [id number] Common 00:00:00 00:00:00 [facility] 2020-03-29 2020-03-29 Outpatient STLMLC STLMLC [id number] Common 00:00:00 00:00:00 [facility] 2020-03-25 2020-03-25 Outpatient STLMLC STLMLC [id number] Common 00:00:00 00:00:00 [facility] 2020-03-11 2020-03-11 Outpatient STLMLC STLMLC [id number] Common 00:00:00 00:00:00 [facility] 2020-03-09 2020-03-09 Outpatient STLMLC STLMLC [id number] Common 00:00:00 00:00:00 [facility] 2020-03-09 2020-03-09 Outpatient STLMLC STLMLC [id number] Common 00:00:00 00:00:00 [facility] 2020-03-09 2020-03-09 Outpatient STLMLC STLMLC [id number] Common 00:00:00 00:00:00 [facility] 2020-02-26 2020-02-26 Outpatient STLMLC STLMLC [id number] Common 00:00:00 00:00:00 [facility] 2020-02-26 2020-02-26 Outpatient STLMLC STLMLC [id number] Common 00:00:00 00:00:00 [facility] 2020-02-26 2020-02-26 Outpatient STLMLC STLMLC [id number] Common 00:00:00 00:00:00 [facility] 2020-02-16 2020-02-16 Outpatient STLMLC STLMLC [id number] Common 00:00:00 00:00:00 [facility] 2020-02-16 2020-02-16 Outpatient STLMLC STLMLC [id number] Common 00:00:00 00:00:00 [facility] 2020-01-23 2020-01-23 Outpatient STLMLC STLMLC [id number] Common 00:00:00 00:00:00 [facility] 2020-01-22 2020-01-22 Outpatient STLMLC STLMLC [id number] Common 00:00:00 00:00:00 [facility] 2020-01-19 2020-01-19 Outpatient STLMLC STLMLC [id number] Common 00:00:00 00:00:00 [facility] 2020-01-19 2020-01-19 Outpatient STLMLC STLMLC [id number] Common 00:00:00 00:00:00 [facility] 2019-12-30 2019-12-30 Telephone [facility] 1.2.840.114 7 [id number] Univers 00:00:00 00:00:00 Coleen Sams 350.1.13.10 i Ric 4.2.7.2.686 Arianna Ojeda [id number] [address] 2019-12-08 2019-12-08 [facility]phone [facility] 1.2.840.114 7 [id number] Univers 00:00:00 00:00:00 Peter [place] 350.1.13.10 [place] [id number] Ct dic[address] 2019-10-21 2019-10-21 Telephone [facility] 1.2.840.114 7 [id number] Univers 00:00:00 00:00:00 Coleen Amaya 350.1.13.10 i ty [place] [phone] Ct dic[address] 2019-10-21 2019-10-21 Telephone [facility] 1.2.840.114 7 [id number] 00:00:00 00:00:00 Coleen Sams 350.1.13.10 [place] 4.2.7.2.686 Professio [phone] [address] 2019-09-08 2019-09-08 Orders Doctor DARWIN 1.2.840.114 [id number] Univers 00:00:00 00:00:00 Only Unassigned, SALINAS 350.1.13.10 ity of [place] [facility] 4.2.7.2.686 Kwabena as [id number] [address] 2019-09-08 2019-09-08 Orders Doctor DARWIN 1.2.840.114 [id number] 00:00:00 00:00:00 Only Unassigned, SALINAS 350.1.13.10 [place] [facility] 4.2.7.2.686 [id number] [facility] 2019-08-20 2019-08-20 Outpatient R OMER MAYO [facility] [id number] Univers 14:00:00 14:00:00 OMER MAYO 2005 03 ity [facility] 2019-08-13 2019-08-13 Outpatient R OMER MAYO [facility] [id number] Univers 14:30:00 14:30:00 OMER MAYO 2004 27 ity [facility] 2019-08-13 2019-08-13 Outpatient R OMER MAYO [facility] [id number] Univers 14:30:00 14:30:00 [facility] 2019-08-13 2019-08-13 Office [facility] 1.2.342.[id number] [place] [address] 08:35:52 09:05:52 Visit Strahil T [place] 350.1.13.10 it[place] [phone] Ct dic[address] 2019-08-13 2019-08-13 [facility] 1.2.142.275 [id number] 08:35:52 09:05:52 Visit Strahil T [place] 350.1.13.10 [place] 4.2.7.2.[phone] 2019-08-12 2019-08-12 Telephone [facility] 1.2.840.114 7 [id number] Univers 00:00:00 00:00:00 Coleen Sams 350.1.13.10 [place] [phone] [address] 2019-07-22 2019-07-22 [facility] [id number]-[id number] Univers 10:20:00 10:20:00 [facility] 2019-07-22 2019-07-22 [facility] [id number] Univers 10:20:00 10:20:00 COLEEN [facility] 2019-07-18 2019-07-18 [facility] [id number] 38Q-[id number] Univers 16:00:00 16:00:00 COLEEN [facility] 2019-07-09 2019-07-09 Telephone [facility] .2.840.114 7 [id number] Univers 00:00:00 00:00:00 Coleen Sams 350.1.13.10 i [place] [id number] Ct dic[address] 2019-07-07 2019-07-07 Telephone [facility] 1.2.840.114 7 [id number] Univers 00:00:00 00:00:00 Coleen Sams 350.1.13.10 [place] [id number] [address] 2019-07-03 2019-07-03 Orders Doctor DARWIN 1.2.840.114 [id number] Univers 00:00:00 00:00:00 Only Unassigned, SALINAS 350.1.13.10 ity of [place] [facility] 4.2.7.2.686 Kwabena as [id number] [address] 2019-07-03 2019-07-03 [facility] 1.2.840.114 7 [id number] Univers 00:00:00 00:00:00 Coleen Sams 350.1.13.10 i [place] [phone] Ct dical nal [address] [place] [address] 2019-06-30 2019-06-30 Telephone [facility] 1.2.840.114 7 [id number] Univers 00:00:00 00:00:00 Coleen Sams 350.1.13.10 [place] [id number] [address] 2019-06-30 2019-06-30 Telephone [facility] 1.2.840.114 7 [id number] Univers 00:00:00 00:00:00 Coleen Sams 350.1.13.10 i [place] [phone] Ct dical nal [address] [place] [address] 2019-06-25 2019-06-25 [facility] [place] 1.2.840.114 7 [id number] Univers 00:00:00 00:00:00 Coleen Sams 350.1.13.10 i [place] [phone] Ct dical nal [address] [place] [address] 2019 2019 Urgent Provider, [facility] 1.2.840.114 [id number] Univers 10:50:50 11:57:31 Care Coleen Lov[facility] 350.1.13.10 ity of [place] 4.2.7.2.686 Kwabena as Professio [phone] Ct dical [facility] 044 [facility] 2019 2019 Outpatient R [facility] [id number] Univers 11:00:00 11:00:00 [id number] ity [facility] 2019 2019 Outpatient R [facility] [id number] Univers 11:00:00 11:00:00 COLEEN [facility] 2019-06-19 2019-06-19 Nurse DARWIN Garcia 1.2.840.114 [id number] Univers 00:00:00 00:00:00 Triage Michelle Schaeffer SALINAS 350.1.13.10 i ty of [facility] 4.2.7.2.686 Kwabena as [phone] [address] 2019-06-13 2019-06-13 Telephone [facility] 1.2.840.114 7 [id number] Univers 00:00:00 00:00:00 Coleen Sams 350.1.13.10 [place] [phone] Ct dic[address] 2019-06-05 2019-06-05 Outpatient [facility] [id number] 38Q-[id number] Univers 12:40:00 12:40:00 COLEEN [id number] [facility] 2019-06-05 2019-06-05 Outpatient R [facility] [id number] Univers 12:40:00 12:40:00 COLEEN [facility] 2019-06-04 2019-06-04 Telephone [facility] 1.2.840.114 7 [id number] Univers 00:00:00 00:00:00 Coleen Sams 350.1.13.10 i [place] [id number] Ct dic[address] 2019-06-04 2019-06-04 Telephone [facility] 1.2.840.114 7 [id number] Univers 00:00:00 00:00:00 Coleen Sams 350.1.13.10 i [place] [phone] Ct dicsolomon nal [address] [place] [address] 2019-06-02 2019-06-02 [facility] 12.840.114 7 [id number] Univers 00:00:00 00:00:00 Coleen Sams 350.1.13.10 i ty [place] [phone] Ct dichi nal [address] [place] [address] 2019-05-30 2019-05-[address]114 7 [id number] Univers 00:00:00 00:00:00 Coleen Sams 350.1.13.10 i ty [place] [phone] [facility] nal [address] [place] [address] 2019-05-30 2019-05-30 [address]114 7 [id number] Univers 00:00:00 00:00:00 Coleen Sams 350.1.13.10 i ty [place]2.[place] [phone] Ct dical nal [address] [place] [address] 2019-05-29 2019-05-29 Refill [facility] 12.840.114 [id number] Univers 00:00:00 00:00:00 Coleen Sams 350.1.13.10 i ty [place]2.[place] [phone] Ct dical nal [address] [place] [address] 2019-05-28 2019-05-28 [facility] 12.840.114 7 [id number] Univers 00:00:00 00:00:00 Coleen Sams 350.1.13.10 i ty [place].2.[place] [phone] Ct dical nal [address] [place] [address] 2019-05-28 2019-05-28 Orders Doctor DARWIN 1.2.840.114 [id number] Univers 00:00:00 00:00:00 Only Unassigned, SALINAS 350.1.13.10 ity of [place] [facility] 4.2.7.2.686 Kwabena as [phone] [address] 2019-05-27 2019-05-27 Telephone [facility] 1.2.840.114 7 [id number] Univers 00:00:00 00:00:00 Coleen Sams 350.1.13.10 [place] [phone] [facility]44 [facility] 2019-05-23 2019-05-23 Telephone [facility] 1.2.840.114 7 [id number] Univers 00:00:00 00:00:00 Coleen Sams 350.1.13.10 i ty [place] [phone] [facility] 044 [facility] 2019-05-22 2019-05-22 Braze Operator 2, Adc Lab [facility] 1.2.840.114 [id number] Univers 16:02:32 16:17:32 Visit Coleen [place] 350.1.13.10 it[place] of [place] [phone] [facility] 353 [facility] 2019-05-22 2019-05-22 Office [facility] 1.2.840.114 [id number] Univers 14:19:49 15:54:29 Visit Coleen Sams 350.1.13.10 i ty [place]2.[place] [phone] [address] 2019-05-22 2019-05-22 Outpatient R BRAIN [facility] [id number] 38Q-20 Univers 14:20:00 14:20:00 COLEEN [id number] ity [facility] 2019-05-22 2019-05-22 Outpatient R BRAIN [facility] [id number] Univers 14:20:00 14:20:00 COLEEN butts [facility] 2019-05-22 2019-05-22 [facility]phone [facility] 1.2.840.114 7 [id number] Univers 00:00:00 00:00:00 Coleen Sams 350.1.13.10 i [place]2.[place] [phone] [facility] 044 [facility] 2019-05-22 2019-05-22 Telephone [facility] 1.2.840.114 [id number] Univers 00:00:00 00:00:00 Strahil T Sta[place] 350.1.13.10 ity of [place] [phone] [address] 2019-05-20 2019-05-20 Outpatient R [facility] [id number] Univers 20:00:00 20:00:00 [id number] ity [facility] 2019-05-20 2019-05-20 Outpatient R OMER MAYO [facility] [id number] Univers 20:00:00 20:00:00 OMER MAYO ity [facility] 2019-05-20 2019-05-20 Braze Operator 1, [facility] Sleep Lab Bed [facility] 1. 2.840.114 [id number] Univers 13:52:54 16:22:54 Visit Omer Mayo 350.1.13. 10 it[place] of [place].2.[place] [id number] [address] 2019-05-20 2019-05-20 Telephone [facility] 1.2.840.114 [id number] Univers 00:00:00 00:00:00 Strahil T Sta[place] 350.1.13.10 it[place] of [place] [phone] [place] [address] [facility] 2019-05-20 2019-05-20 Orders Doctor GRANADOS 1.2.840.114 [id number] Univers 00:00:00 00:00:00 Only Unassigned, SALINAS 350.1.13.10 ity of [place] [facility] 4.2.7.2.686 Kwabena as [phone] [address] 2019-05-07 2019-05-07 Telephone [facility] 1.2.909.944 [id number] Univers 00:00:00 00:00:00 Mer Sams 350.1.13.10 i ty [place]2.[place] [phone] [facility]59 [facility] 2019-05-06 2019-05-06 Telephone [facility] 1.2.840.114 7 [id number] Univers 00:00:00 00:00:00 Coleen Sams 350.1.13.10 i ty [place].2.[place] [phone] [facility] 044 [facility] 2019-04-25 2019-04-25 Telephone [facility] [place] 1.2.840.114 7 [id number] Univers 00:00:00 00:00:00 Coleen Sams 350.1.13.10 i ty [place] [phone] [address] 2019-04-19 2019-04-19 Orders Doctor GRANADOS 1.2.840.114 [id number] Univers 00:00:00 00:00:00 Only Unassigned, SALINAS 350.1.13.10 ity of [place] [facility] 4.2.7.2.686 Kwabena as [phone] [address] 2019-04-16 2019-04-16 Outpatient R OMER MAYO [facility] [id number] Univers 15:00:00 15:00:00 OMER MAYO ity of [facility] 2019-04-16 2019-04-16 Telephone [facility] 1.2.840.114 7 [id number] Univers 00:00:00 00:00:00 Coleen Sams 350.1.13.10 [place] ty [place] [phone] [address] 2019-04-16 2019-04-16 Telephone [facility] 1.2.840.114 7 [id number] Univers 00:00:00 00:00:00 Coleen Sams 350.1.13.10 i [place] [phone] Ct dical nal 044 [facility] 2019-04-11 2019-04-11 Telephone [facility] 1.2.840.114 7 [id number] [facility] 00:00:00 00:00:00 Coleen Mann 350.1.13.10 it y of [place] 4.2.7.2.686 Kwabena as Professio [phone] [facility] 044 [place] [facility] 2019-04-08 2019-04-08 [facility] 12.840.114 [id number] [facility] 13:31:16 16:10:00 Mary Sams 350.1.13.10 ity of [place] [phone] [address] 2019-04-08 2019-04-08 Telephone [facility] 1.2.840.114 7 [id number] [facility] 00:00:00 00:00:00 Coleen Sams 350.1.13.10 i [place] [phone] Ct dical nal 044 [facility] 2019-04-01 2019-04-01 Braze Operator Yifan, Ester Lab Main [facility] 1.2.8 40.114 [id number] [facility] 13:02:30 13:17:30 Visit Coleen [place] 350.1.13.10 ity of [place].2.[place] [phone] Ct dichi nal 353 [facility] 2019-04-01 2019-04-01 Office [facility] 1.2.840.114 [id number] [facility] 10:41:54 12:02:13 Visit Coleen Sams 350.1.13.10 i [place].2.[place] [phone] Ct dical nal 044 [facility] 2019-04-01 2019-04-01 Orders Doctor DARWIN 1.2.840.114 [id number] Univers 00:00:00 00:00:00 Only Unassigned, SALINAS 350.1.13.10 ity of [place] [facility] 4.2.7.2.686 Kwabena as [phone] [address] 2018-11-27 2018-11-27 Basil Cartwright [facility] 1.2.840.114 [id number] Univers 00:00:00 00:00:00 C [place] 350.1.13.10 i [place] [phone] [address] 2018-11-12 2018-11-21 Office Basil Singer [facility] 1.2.840.114 [id number] Univers 14:40:43 08:13:38 Visit C [place] 350.1.13.10 i ty of [place].2.[place] [phone] [address] 2018-11-13 2018-11-13 Basil Cartwright [facility] 1.2.840.114 [id number] Univers 00:00:00 00:00:00 C [place] 350.1.13.10 i ty [place] [phone] [address] 2018-10-21 2018-10-21 Orders Doctor DARWIN 1.2.840.114 [id number] Univers 00:00:00 00:00:00 Only Unassigned, SALINAS 350.1.13.10 ity of [place] [facility] 4.2.7.2.686 Kwabena as [phone] [address] 2018-10-14 2018-10-14 Telephone Basil Singer [facility] 1.2.840.114 [id number] Univers 00:00:00 00:00:00 C [place] 350.1.13.10 i ty [place] [phone] [address] 2018-10-09 2018-10-09 Basil Cartwright [facility] 1.2.840.114 [id number] [facility] 00:00:00 00:00:00 Nette Sams 350.1.13.10 i ty of [place] 4.2.7.2.686 [address] [phone] [address] dical nal 044 [facility] 2018-09-24 2018-09-24 Outpatient [facility] 9189 Memoria 00:31:00 00:31:00 mendoza Benz [facility] l [facility] 2018-08-02 2018-08-04 Inpatient U [facility] 7527 [facility] 20:29:00 15:20:00 NOURELDIN Results Test Description Test Time Test Comments Results Result Comments Source ACTIVATED PARTIAL THRM[facility] 2021-06-08 17:15:20 Test Item Value Reference Range Interpretation Comme nts APTT Patient (test code = See_Comment [ Automated message] The 3173-2) system which ge nerated this result tra nsmitted reference range : 23 - 38 Seconds. The re ference range was not u sed to interpret this result as normal/abnormal . DYAN (test code = DYAN) The [facility] patient population mean normal value for aPTT is 30 seconds. Lab Interpretation (test Normal code = 44469-4) [facility] [id number] 17:13:18 Test Item Value Reference Range Interpretation Comments PROTIME PATIENT (test See_Comment [Auto mated message] code = 5964-2) The system wh ich generated this result transmitted ref erence range: 12.0 - 1 4.7 Seconds. The re ference range was not u sed to interpret this result as normal/abnor mal. INR (test code = 6301-6) Nor mal INR <1.1; Warfarin Therap eutic range 2.0 to 3. 0 or 2.5 to 3.5, dep ending upon the indica tions. Lab Interpretation (test Normal code = 88396-0) [facility] [id number] 16:59:37 Test Item Value Reference Interpretation Comments Range TROPONIN I (test 0.003 ng/mL See_Comment [Automated code = [id number]) message] The system which generated this result transmitted reference range : <=0.034. The reference range was not used to interpret this result as normal/abnormal . DYAN (test code = Reference (Normal) DYAN) Range (defined by the 99th percentile reference limit): <= 0.034 ng/mL Note: Cardiac troponin begins to rise 3-4 hours after the onset of ischemia. Repeat in 4-6 hours if the sample was drawn within 3-4 hours of the onset of the symptom and found normal. Diagnosis of myocardial injury is made with acute changes in cTn concentrations with at least one serial sample above the 99th percentile upper reference limit (URL), taken together with the patient's clinical presentation. Biotin has been reported to cause a negative bias, interpret results relative to patient's use of biotin. Lab Interpretation Normal (test code = 30362-6) [facility] [id number] 16:56:14 Test Item Value Reference Range Interpretation Comments NT-proBNP (test code 37 pg/mL See_Comment [Autom ated = [id number]) message] The system which generated this result transmitted reference range : <=125. The reference range was not used to interpret this result as normal/abnormal . DYAN (test code = DYAN) Biotin has been reported to cause a negative bias, interpret results relative to patient's use of biotin. Lab Interpretation Normal (test code = 25735-4) [facility] HospitalETHANOL2022-03-23 16:51:35 Test Item Value Reference Range Interpretation Comments ALCOHOL (test code = <10 mg/dL 9943765861) DYAN (test code = DYAN) <10 Kyvzlgww22-336 Toxic>100 Depression of COMMERCIAL FINANCE ANALYST>400 Fatalities Reported [facility] HospitalCOMP. METABOLIC PANEL ([id number])2021-06-08 16:47:52 Test Item Value Reference Range Interpretation Comments NA (test code = 143 mmol/L 135-145 3868473666) K (test code = 4.6 mmol/L 3.5-5.0 0446323999) CL (test code = 103 mmol/L 98-108 6023225093) CO2 TOTAL (test code = 32 mmol/L 23-31 H 0868159012) AGAP (test code = 2-16 2040108878) BUN (test code = 10 mg/dL 7-23 7364779114) GLUCOSE (test code = 134 mg/dL 70-110 H 0212936760) CREATININE (test code = 0.62 mg/dL 0.60-1.25 7758512367) TOTAL BILI (test code = 0.5 mg/dL 0.1-1.5 7159088235) CALCIUM (test code = 8.4 mg/dL 8.6-10.6 L 5975131773) T PROTEIN (test code = 7.4 g/dL 6.3-8.2 3248335327) ALBUMIN (test code = 4.1 g/dL 3.5-5.0 0886813873) ALK PHOS (test code = 120 U/L 34-122 5174115394) ALTv (test code = 30 U/L 5-50 1742-6) AST(SGOT) (test code = 31 U/L 13-40 3341526281) eGFR (test code = mL/min/1.73m2 7632566915) DYAN (test code = DYAN) Association of Glomerular Filtration Rate (GFR) and Staging of Kidney Disease* + --+ --+ ------+| GFR (mL/min/1.73 m2) ?| With Kidney Damage ?| ?Without Kidney Damage+ --------+ --------+ +| ?>90 ?| ?Stage one ?| ? Normal ?+ ---+ ---+ -------+| ?60-89 ?| ?Stage two ?| ? Decreased GFR ? + --+ --+ ------+| ?30-59 ?| ?Stage three ?| ? Stage three ? + --+ --+ ------+| ?15-29 ?| ?Stage four ? | ? Stage four ?+ ---+ ---+ -------+| ?<15 (or dialysis) ? ?| ?Stage five ? | ? Stage five ?+ ---+ ---+ -------+ *Each stage assumes the associated GFR level has been in effect for at least three months. ?Stages 1 to 5, with or without kidney disease, indicate chronic kidney disease. Notes: Determination of stages one and two (with eGFR >59mL/min/1.73 m2) requires estimation of kidney damage for at least three months as defined by structural or functional abnormalities of the kidney, manifested by either:Pathological abnormalities or Markers of kidney damage (including abnormalities in the composition of the blood or urine or abnormalities in imaging tests). Lab Interpretation Abnormal (test code = 19014-6) [facility] WITH [id number] 16:37:14 Test Item Value Reference Range Interpretation Comments WBC (test code = See_Comment H [Automated 6690-2) message] The sy stem which generated this result transmitted reference range : 4.20 - 10.70 10*3/?L. The reference range was not used to interpret this result as normal/abnormal . RBC (test code = See_Comment H [Automated 789-8) message] The sy stem which generated this result transmitted reference range : 4.26 - 5.52 10*6/?L. The reference range was not used to interpret this result as normal/abnormal . HGB (test code = 13.3 g/dL 12.2-16.4 718-7) HCT (test code = 45.6 % 38.4-49.3 4544-3) MCV (test code = 80.9 fL 81.7-95.6 L 787-2) MCH (test code = 23.6 pg 26.1-32.7 L 785-6) MCHC (test code = 29.2 g/dL 31.2-35.0 L 786-4) RDW-SD (test code = 49.5 fL 38.5-51.6 69154-7) RDW-CV (test code = 17.2 % 12.1-15.4 H 788-0) PLT (test code = See_Comment H [Automated 777-3) message] The sy stem which generated this result transmitted reference range : 150 - 328 10*3/ ?L. The reference r matthieu was not used to interpret this result as normal/abnormal . MPV (test code = 10.5 fL 9.8-13.0 19190-2) NRBC/100 WBC (test See_Comment [Automat ed code = 0790665440) message] The system which generated this result transmitted reference range : 0.0 - 10.0 /100 WBCs. The refer ence range was not u sed to interpret th is result as normal/abnormal . NRBC x10^3 (test code <0.01 See_Comment [Auto mated = 4088282281) message] The s ystem which generated this result transmitted reference range : 10*3/?L. The reference range was not used to interpret this result as normal/abnormal . GRAN MAT (NEUT) % 59.6 % (test code = 770-8) IMM GRAN % (test code 2.00 % = 9727020950) LYMPH % (test code = 24.1 % 736-9) MONO % (test code = 10.1 % 5905-5) EOS % (test code = 3.7 % 713-8) BASO % (test code = 0.5 % 706-2) GRAN MAT x10^3(ANC) 8.00 10*3/uL 1.99-6.95 H (test code = 8891834504) IMM GRAN x10^3 (test 0.27 10*3/uL 0.00-0.06 H code = 0134517830) LYMPH x10^3 (test code 3.23 10*3/uL 1.09-3.23 = 731-0) MONO x10^3 (test code 1.35 10*3/uL 0.36-1.02 H = 742-7) EOS x10^3 (test code = 0.50 10*3/uL 0.06-0.53 711-2) BASO x10^3 (test code 0.07 10*3/uL 0.01-0.09 = 704-7) Lab Interpretation Abnormal (test code = 63019-7) [facility] HospitalADC,CLC OR L[facility] ONLY - INFLUENZA A & B DIRECT [id number] 20:56:00 Test Item Value Reference Range Interpretation Comments Influenza A (test code = 71802-2) Negative Negative Influenza B (test code = 92080-2) Negative Negative Lab Interpretation (test code = Normal 09348-2) [facility] HospitalCT Head W/O [id number] 20:43:43 Impression: Grossly unchanged enlargement of the ventricles. Left frontal approachventricular shunt catheter unchanged in position. 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 ? Findings: No acute intracranial hemorrhage. Right craniotomy. 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 Left frontalapproach ventricular shunt catheter with distal tip in the region of theforamen of Monro. Grossly unchanged enlargement of the ventricles. Chronicleft basal ganglia infarct. Aneurysm clip right posterior fo ssa.Redemonstration of ?Dandy-Walker continuum.Left gaze deviation.Visualized paranasal sinuses are essentially clear. 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 Findings:No acute intracranial hemorrhage. Right craniotomy. 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 Left frontalapproach ventricular shunt catheter with distal tip in the regionof theforamen of Monro. Grossly unchanged enlargement of the ventricles. Chronicleft basal ganglia infarct. Aneurysm clip right posterior fossa.Redemonstration of Dandy-Walker continuum.Left gaze devia tion.Visualized paranasal sinuses are essentially clear. IMPRESSIONImpression:Grossly unchanged enlargement of the ventricles. Left frontal approachventricular shunt catheter unchanged in position.[facility] HospitalPOCT-GLUCOSE [id number] 06:57:00 Test Item Value Reference Range Interpretation Comments POC-GLUCOSE METER 117 mg/dL 70-110 H TESTED AT [place] [address] ([facility]) (test code = DELVIN Benson [facility] 1538) [address] POCT-GLUCOSE [id number] 16:25:00 Test Item Value Reference Range Interpretation Comments POC-GLUCOSE METER 88 mg/dL 70-110 TESTED AT [place] [address] ([facility]) (test code = [facility] [address] 1538) POCT-GLUCOSE [id number] 06:12:00 Test Item Value Reference Range Interpretation Comments POC-GLUCOSE METER 91 mg/dL 70-110 TESTED AT [place] [address] ([facility]) (test code = [facility] Marcelino [facility] [address] 1538) POCT-GLUCOSE [id number] 16:29:00 Test Item Value Reference Range Interpretation Comments POC-GLUCOSE METER 94 mg/dL 70-110 TESTED AT [place] [address] ([facility]) (test code = DELVIN Benson [facility] [address] 1538) POCT-GLUCOSE [id number] 06:27:00 Test Item Value Reference Range Interpretation Comments POC-GLUCOSE METER 90 mg/dL 70-110 TESTED AT [place] [address] ([facility]) (test code = DELVIN Benson [facility] [address] 1538) POCT-GLUCOSE [id number] 16:45:00 Test Item Value Reference Range Interpretation Comments POC-GLUCOSE METER 88 mg/dL 70-110 TESTED AT [place] [address] ([facility]) (test code = DELVIN Benson [facility] [address] 1538) POCT-GLUCOSE [id number] 12:04:00 Test Item Value Reference Range Interpretation Comments POC-GLUCOSE METER 73 mg/dL 70-110 TESTED AT [place] [address] ([facility]) (test code = DELVIN Benson [facility] [address] 1538) POCT-GLUCOSE [id number] 06:53:00 Test Item Value Reference Range Interpretation Comments POC-GLUCOSE METER 112 mg/dL 70-110 H TESTED AT [place] [address] ([facility]) (test code = DELVIN Benson [facility] 1538) [address] POCT-GLUCOSE [id number] 17:08:00 Test Item Value Reference Range Interpretation Comments POC-GLUCOSE METER 96 mg/dL 70-110 TESTED AT [place] [address] ([facility]) (test code = DELVIN Benson [facility] [address] 1538) POCT-GLUCOSE [id number] 11:10:00 Test Item Value Reference Range Interpretation Comments POC-GLUCOSE METER 98 mg/dL 70-110 TESTED AT [place] [address] ([facility]) (test code = DELVIN Benson [facility] [address] 1538) BASIC METABOLIC [id number] 07:10:00 Test Item Value Reference Range Interpretation Comments SODIUM (BEAKER) 144 meq/L 136-145 (test code = 381) POTASSIUM (BEAKER) 4.0 meq/L 3.5-5.1 (test code = 379) CHLORIDE (BEAKER) 108 meq/L 98-107 H (test code = 382) CO2 (BEAKER) (test 31 meq/L 22-29 H code = 355) BLOOD UREA NITROGEN 13 mg/dL 7-21 (BEAKER) (test code = 354) CREATININE (BEAKER) 0.73 mg/dL 0.57-1.25 (test code = 358) GLUCOSE RANDOM 106 mg/dL 70-105 H (BEAKER) (test code = 652) CALCIUM (BEAKER) 8.8 mg/dL 8.4-10.2 (test code = 697) EGFR (BEAKER) (test 116 mL/min/1.73 ESTIM ATED GFR IS code = 1092) sq m NOT ACCURATE CREATININE CLEARANCE IN PREDICTING GLOMERULAR FILTRATION RATE . ESTIMATED GFR I S NOT APPLICABLE FOR DIALYSIS PATIEN TS. CBC W/PLT COUNT & AUTO [id number] 06:30:00 Test Item Value Reference Range Interpretation Comments WHITE BLOOD CELL COUNT (BEAKER) 9.2 K/ L 3.5-10.5 (test code = 775) RED BLOOD CELL COUNT (BEAKER) 5.56 M/ L 4.63-6.08 (test code = 761) HEMOGLOBIN (BEAKER) (test code = 13.3 GM/DL 13.7-17.5 L 410) HEMATOCRIT (BEAKER) (test code = 45.4 % 40.1-51.0 411) MEAN CORPUSCULAR VOLUME (BEAKER) 81.7 fL 79.0-92.2 (test code = 753) MEAN CORPUSCULAR HEMOGLOBIN 23.9 pg 25.7-32.2 L (BEAKER) (test code = 751) MEAN CORPUSCULAR HEMOGLOBIN CONC 29.3 GM/DL 32.3-36.5 L (BEAKER) (test code = 752) RED CELL DISTRIBUTION WIDTH 16.4 % 11.6-14.4 H (BEAKER) (test code = 412) PLATELET COUNT (BEAKER) (test 386 K/CU MM 150-450 code = 756) MEAN PLATELET VOLUME (BEAKER) 10.6 fL 9.4-12.4 (test code = 754) NUCLEATED RED BLOOD CELLS 0 /100 WBC 0-0 (BEAKER) (test code = 413) NEUTROPHILS RELATIVE PERCENT 50 % (BEAKER) (test code = 429) LYMPHOCYTES RELATIVE PERCENT 37 % (BEAKER) (test code = 430) MONOCYTES RELATIVE PERCENT 9 % (BEAKER) (test code = 431) EOSINOPHILS RELATIVE PERCENT 3 % (BEAKER) (test code = 432) BASOPHILS RELATIVE PERCENT 1 % (BEAKER) (test code = 437) NEUTROPHILS ABSOLUTE COUNT 4.56 K/ L 1.78-5.38 (BEAKER) (test code = 670) LYMPHOCYTES ABSOLUTE COUNT 3.35 K/ L 1.32-3.57 (BEAKER) (test code = 414) MONOCYTES ABSOLUTE COUNT (BEAKER) 0.86 K/ L 0.30-0.82 H (test code = 415) EOSINOPHILS ABSOLUTE COUNT 0.25 K/ L 0.04-0.54 (BEAKER) (test code = 416) BASOPHILS ABSOLUTE COUNT (BEAKER) 0.06 K/ L 0.01-0.08 (test code = 417) IMMATURE GRANULOCYTES-RELATIVE 1 % 0-1 PERCENT ([facility]) (test code = 2801) POCT-GLUCOSE [id number] 06:11:00 Test Item Value Reference Range Interpretation Comments POC-GLUCOSE METER 110 mg/dL 70-110 TESTED AT [place] [address] ([facility]) (test code = ALIAFRANCISCA Benson [place] 1538) [address] POCT-GLUCOSE [id number] 20:08:00 Test Item Value Reference Range Interpretation Comments POC-GLUCOSE METER 139 mg/dL 70-110 H TESTED AT [place] [address] ([facility]) (test code = DELVIN Benson [place] 1538) [address] POCT-GLUCOSE [id number] 16:17:00 Test Item Value Reference Range Interpretation Comments POC-GLUCOSE METER 96 mg/dL 70-110 TESTED AT [place] [address] ([facility]) (test code = [place] [address] 1538) POCT-GLUCOSE [id number] 11:28:00 Test Item Value Reference Range Interpretation Comments POC-GLUCOSE METER 78 mg/dL 70-110 TESTED AT [place] [address] ([facility]) (test code = [place] [address] 1538) POCT-GLUCOSE [id number] 06:24:00 Test Item Value Reference Range Interpretation Comments POC-GLUCOSE METER 94 mg/dL 70-110 TESTED AT [place] [address] ([facility]) (test code = [place] [address] 1538) POCT-GLUCOSE [id number] 20:50:00 Test Item Value Reference Range Interpretation Comments POC-GLUCOSE METER 121 mg/dL 70-110 H TESTED AT [place] [address] ([facility]) (test code = DELVIN Benson [place] 1538) [address] POCT-GLUCOSE [id number] 16:08:00 Test Item Value Reference Range Interpretation Comments POC-GLUCOSE METER 80 mg/dL 70-110 TESTED AT [place] [address] ([facility]) (test code = DELVIN Benson [facility] [address]38) POCT-GLUCOSE [id number] 11:19:00 Test Item Value Reference Range Interpretation Comments POC-GLUCOSE METER 143 mg/dL 70-110 H TESTED AT [place] [address] ([facility]) (test code = DELVIN Benson [place] 1538) [address] POCT-GLUCOSE [id number] 06:44:00 Test Item Value Reference Range Interpretation Comments POC-GLUCOSE METER 101 mg/dL 70-110 TESTED AT [place] [address] ([facility]) (test code = DELVIN Benson [place] 1538) [address] POCT-GLUCOSE [id number] 20:50:00 Test Item Value Reference Range Interpretation Comments POC-GLUCOSE METER 108 mg/dL 70-110 TESTED AT [place] [address] ([facility]) (test code = DELVIN Benson [place] 1538) [address] POCT-GLUCOSE [id number] 17:05:00 Test Item Value Reference Range Interpretation Comments POC-GLUCOSE METER 74 mg/dL 70-110 TESTED AT [place] [address] ([facility]) (test code = DELVIN Benson [facility] [address] 1538) POCT-GLUCOSE [id number] 11:51:00 Test Item Value Reference Range Interpretation Comments POC-GLUCOSE METER 106 mg/dL 70-110 TESTED AT [place] [address] ([facility]) (test code = DELVIN Benson [facility] 1538) [address] POCT-GLUCOSE [id number] 06:56:00 Test Item Value Reference Range Interpretation Comments POC-GLUCOSE METER 95 mg/dL 70-110 TESTED AT [place] [address] ([facility]) (test code = DELVIN Benson [facility] [address]38) POCT-GLUCOSE [id number] 21:23:00 Test Item Value Reference Range Interpretation Comments POC-GLUCOSE METER 96 mg/dL 70-110 TESTED AT [place] [address] ([facility]) (test code = DELVIN Benson [facility] [address] 1538) POCT-GLUCOSE [id number] 16:26:00 Test Item Value Reference Range Interpretation Comments POC-GLUCOSE METER 96 mg/dL 70-110 TESTED AT [place] [address] ([facility]) (test code = ALIAWI Marcelino [facility] [address] 1538) POCT-GLUCOSE [id number] 11:56:00 Test Item Value Reference Range Interpretation Comments POC-GLUCOSE METER 132 mg/dL 70-110 H TESTED AT [place] [address] ([facility]) (test code = DELVIN Benson [facility] 1538) [address] POCT-GLUCOSE [id number] 06:35:00 Test Item Value Reference Range Interpretation Comments POC-GLUCOSE METER 97 mg/dL 70-110 TESTED AT [place] [address] ([facility]) (test code = DELVIN Benson [facility] [address] 1538) POCT-GLUCOSE [id number] 21:10:00 Test Item Value Reference Range Interpretation Comments POC-GLUCOSE METER 121 mg/dL 70-110 H TESTED AT [place] [address] ([facility]) (test code = DELVIN Benson [facility] 1538) [address] POCT-GLUCOSE [id number] 16:51:00 Test Item Value Reference Range Interpretation Comments POC-GLUCOSE METER 126 mg/dL 70-110 H TESTED AT [place] [address] ([facility]) (test code = DELVIN Benson [facility] 1538) [address] POCT-GLUCOSE [id number] 11:20:00 Test Item Value Reference Range Interpretation Comments POC-GLUCOSE METER 109 mg/dL 70-110 TESTED AT [place] [address] ([facility]) (test code = DELVIN Benson [facility] 1538) [address] POCT-GLUCOSE [id number] 06:57:00 Test Item Value Reference Range Interpretation Comments POC-GLUCOSE METER 167 mg/dL 70-110 H TESTED AT [place] [address] ([facility]) (test code = [facility] 1538) [address] PROTHROMBIN [id number] 06:49:00 Test Item Value Reference Range Interpretation Comments PROTIME ([facility]) (test code = 12.5 seconds 11.9-14.2 759) INR ([facility]) (test code = 370) 1.0 <=5.9 RECOMMENDED COUMADIN/WARFARIN INR THERAPY RANGESSTANDARD DOSE: 2.0 - 3.0 Includes: PROPHYLAXIS forvenous thrombosis, systemic embolization; TREATMENT for venous thrombosis and/or pulmonary embolus.HIGH RISK: Target INR is 2.5-3.5 for patients with mechanical heart valves.BASIC METABOLIC [id number] 06:49:00 Test Item Value Reference Range Interpretation Comments SODIUM (BEAKER) 141 meq/L 136-145 (test code = 381) POTASSIUM (BEAKER) 4.4 meq/L 3.5-5.1 (test code = 379) CHLORIDE (BEAKER) 106 meq/L 98-107 (test code = 382) CO2 (BEAKER) (test 28 meq/L 22-29 code = 355) BLOOD UREA NITROGEN 9 mg/dL 7-21 (BEAKER) (test code = 354) CREATININE (BEAKER) 0.72 mg/dL 0.57-1.25 (test code = 358) GLUCOSE RANDOM 153 mg/dL 70-105 H (BEAKER) (test code = 652) CALCIUM (BEAKER) 9.3 mg/dL 8.4-10.2 (test code = 697) EGFR (BEAKER) (test 118 mL/min/1.73 ESTIM ATED GFR IS code = 1092) sq m NOT ACCURATE CREATININE CLEARANCE IN PREDICTING GLOMERULAR FILTRATION RATE . ESTIMATED GFR I S NOT APPLICABLE FOR DIALYSIS PATIEN TS. CBC W/PLT COUNT & AUTO [id number] 06:33:00 Test Item Value Reference Range Interpretation Comments WHITE BLOOD CELL COUNT (BEAKER) 8.1 K/ L 3.5-10.5 (test code = 775) RED BLOOD CELL COUNT (BEAKER) 5.73 M/ L 4.63-6.08 (test code = 761) HEMOGLOBIN (BEAKER) (test code = 13.9 GM/DL 13.7-17.5 410) HEMATOCRIT (BEAKER) (test code = 45.9 % 40.1-51.0 411) MEAN CORPUSCULAR VOLUME (BEAKER) 80.1 fL 79.0-92.2 (test code = 753) MEAN CORPUSCULAR HEMOGLOBIN 24.3 pg 25.7-32.2 L (BEAKER) (test code = 751) MEAN CORPUSCULAR HEMOGLOBIN CONC 30.3 GM/DL 32.3-36.5 L (BEAKER) (test code = 752) RED CELL DISTRIBUTION WIDTH 16.3 % 11.6-14.4 H (BEAKER) (test code = 412) PLATELET COUNT (BEAKER) (test 387 K/CU MM 150-450 code = 756) MEAN PLATELET VOLUME (BEAKER) 10.5 fL 9.4-12.4 (test code = 754) NUCLEATED RED BLOOD CELLS 0 /100 WBC 0-0 (BEAKER) (test code = 413) NEUTROPHILS RELATIVE PERCENT 46 % (BEAKER) (test code = 429) LYMPHOCYTES RELATIVE PERCENT 39 % (BEAKER) (test code = 430) MONOCYTES RELATIVE PERCENT 10 % (BEAKER) (test code = 431) EOSINOPHILS RELATIVE PERCENT 4 % (BEAKER) (test code = 432) BASOPHILS RELATIVE PERCENT 1 % (BEAKER) (test code = 437) NEUTROPHILS ABSOLUTE COUNT 3.70 K/ L 1.78-5.38 (BEAKER) (test code = 670) LYMPHOCYTES ABSOLUTE COUNT 3.10 K/ L 1.32-3.57 (BEAKER) (test code = 414) MONOCYTES ABSOLUTE COUNT (BEAKER) 0.80 K/ L 0.30-0.82 (test code = 415) EOSINOPHILS ABSOLUTE COUNT 0.34 K/ L 0.04-0.54 (BEAKER) (test code = 416) BASOPHILS ABSOLUTE COUNT (BEAKER) 0.06 K/ L 0.01-0.08 (test code = 417) IMMATURE GRANULOCYTES-RELATIVE 1 % 0-1 PERCENT (BEAKER) (test code = 2801) POCT-GLUCOSE [id number] 21:27:00 Test Item Value Reference Range Interpretation Comments POC-GLUCOSE METER 129 mg/dL 70-110 H TESTED AT [place] [address] ([facility]) (test code = DELVIN Benson [place] [address]) [address] POCT-GLUCOSE [id number] 17:18:00 Test Item Value Reference Range Interpretation Comments POC-GLUCOSE METER 108 mg/dL 70-110 TESTED AT [place] [address] ([facility]) (test code = DELVIN Benson [place] [address]) [address] POCT-GLUCOSE [id number] 11:54:00 Test Item Value Reference Range Interpretation Comments POC-GLUCOSE METER 107 mg/dL 70-110 TESTED AT [place] [address] ([facility]) (test code = [facility] Marcelnio [place] [address]) [address] POCT-GLUCOSE [id number] 11:54:00 Test Item Value Reference Range Interpretation Comments POC-GLUCOSE METER 63 mg/dL 70-110 L Will Repea t Test/TESTED ([facility]) (test code = AT [place] [address]) [facility] [id number] POCT-GLUCOSE [id number] 20:58:00 Test Item Value Reference Range Interpretation Comments POC-GLUCOSE METER 97 mg/dL 70-[address] [facility] 6720 (BEAKER) (test code = DELVIN Benson [facility] [address] 1538) POCT-GLUCOSE [id number] 13:08:00 Test Item Value Reference Range Interpretation Comments POC-GLUCOSE METER 110 mg/dL 70-[address] [facility] 6720 (BEAKER) (test code = DELVIN Benson [facility] 1538) [id number] 07:12:00 Test Item Value Reference Range Interpretation Comments MAGNESIUM (BEAKER) (test code = 2.2 mg/dL 1.6-2.6 627) BASIC METABOLIC [id number] 07:12:00 Test Item Value Reference Range Interpretation Comments SODIUM (BEAKER) 137 meq/L 136-145 (test code = 381) POTASSIUM (BEAKER) 4.5 meq/L 3.5-5.1 (test code = 379) CHLORIDE (BEAKER) 104 meq/L 98-107 (test code = 382) CO2 (BEAKER) (test 26 meq/L 22-29 code = 355) BLOOD UREA NITROGEN 9 mg/dL 7-21 (BEAKER) (test code = 354) CREATININE (BEAKER) 0.79 mg/dL 0.57-1.25 (test code = 358) GLUCOSE RANDOM 98 mg/dL 70-105 (BEAKER) (test code = 652) CALCIUM (BEAKER) 9.3 mg/dL 8.4-10.2 (test code = 697) EGFR (BEAKER) (test 106 mL/min/1.73 ESTIM ATED GFR IS code = 1092) sq m NOT ACCURATE CREATININE CLEARANCE IN PREDICTING GLOMERULAR FILTRATION RATE . ESTIMATED GFR I S NOT APPLICABLE FOR DIALYSIS PATIEN TS. CBC W/PLT COUNT & AUTO [id number] 06:50:00 Test Item Value Reference Range Interpretation Comments WHITE BLOOD CELL COUNT (BEAKER) 11.0 K/ L 3.5-10.5 H (test code = 775) RED BLOOD CELL COUNT (BEAKER) 5.70 M/ L 4.63-6.08 (test code = 761) HEMOGLOBIN (BEAKER) (test code = 13.7 GM/DL 13.7-17.5 410) HEMATOCRIT (BEAKER) (test code = 45.7 % 40.1-51.0 411) MEAN CORPUSCULAR VOLUME (BEAKER) 80.2 fL 79.0-92.2 (test code = 753) MEAN CORPUSCULAR HEMOGLOBIN 24.0 pg 25.7-32.2 L (BEAKER) (test code = 751) MEAN CORPUSCULAR HEMOGLOBIN CONC 30.0 GM/DL 32.3-36.5 L (BEAKER) (test code = 752) RED CELL DISTRIBUTION WIDTH 16.8 % 11.6-14.4 H (BEAKER) (test code = 412) PLATELET COUNT (BEAKER) (test 327 K/CU MM 150-450 code = 756) MEAN PLATELET VOLUME (BEAKER) 10.3 fL 9.4-12.4 (test code = 754) NUCLEATED RED BLOOD CELLS 0 /100 WBC 0-0 (BEAKER) (test code = 413) NEUTROPHILS RELATIVE PERCENT 67 % (BEAKER) (test code = 429) LYMPHOCYTES RELATIVE PERCENT 20 % (BEAKER) (test code = 430) MONOCYTES RELATIVE PERCENT 11 % (BEAKER) (test code = 431) EOSINOPHILS RELATIVE PERCENT 1 % (BEAKER) (test code = 432) BASOPHILS RELATIVE PERCENT 1 % (BEAKER) (test code = 437) NEUTROPHILS ABSOLUTE COUNT 7.33 K/ L 1.78-5.38 H (BEAKER) (test code = 670) LYMPHOCYTES ABSOLUTE COUNT 2.21 K/ L 1.32-3.57 (BEAKER) (test code = 414) MONOCYTES ABSOLUTE COUNT (BEAKER) 1.18 K/ L 0.30-0.82 H (test code = 415) EOSINOPHILS ABSOLUTE COUNT 0.12 K/ L 0.04-0.54 (BEAKER) (test code = 416) BASOPHILS ABSOLUTE COUNT (BEAKER) 0.07 K/ L 0.01-0.08 (test code = 417) IMMATURE GRANULOCYTES-RELATIVE 1 % 0-1 PERCENT (BEAKER) (test code = 2801) RAD, SHUNT [id number] 16:15:00Reason for exam:->Hydrocephalus on CT FINAL REPORT INDICATION:Ventriculoperitoneal shunt for hydrocephalus. COMPARISON: None. TECHNIQUE: Shunt series radiographs, total of 10 views, AP and lateral views of the skull,neck, chest, and abdomen. FINDINGS / IMPRESSION:There is a left-sided ventriculoperitoneal shunt. Right craniotomy noted. Shunt catheter goes down the left neck, left anterior chest and abdomen terminating in the anterior peritoneal space of the low abdomen. No kink or break in the shunt catheter is demonstrated. Severe right facet arthropathy at C4-5 is noted. Heart shadow appears enlarged and mediastinal widening, which may be related to technique. Bowel gas pattern is unremarkable. Signed: Orlando Gavin MDReport Verified Date/Time: 08/10/2018 16:15:10 Reading Location: [facility] C013Y CT Body Reading Room [id number] 06:49:00 Test Item Value Reference Range Interpretation Comments MAGNESIUM (BEAKER) (test code = 2.0 mg/dL 1.6-2.6 627) BASIC METABOLIC [id number] 06:49:00 Test Item Value Reference Range Interpretation Comments SODIUM (BEAKER) 139 meq/L 136-145 (test code = 381) POTASSIUM (BEAKER) 4.2 meq/L 3.5-5.1 (test code = 379) CHLORIDE (BEAKER) 103 meq/L 98-107 (test code = 382) CO2 (BEAKER) (test 30 meq/L 22-29 H code = 355) BLOOD UREA NITROGEN 9 mg/dL 7-21 (BEAKER) (test code = 354) CREATININE (BEAKER) 0.74 mg/dL 0.57-1.25 (test code = 358) GLUCOSE RANDOM 90 mg/dL 70-105 (BEAKER) (test code = 652) CALCIUM (BEAKER) 9.1 mg/dL 8.4-10.2 (test code = 697) EGFR (BEAKER) (test 114 mL/min/1.73 ESTIM ATED GFR IS code = 1092) sq m NOT ACCURATE CREATININE CLEARANCE IN PREDICTING GLOMERULAR FILTRATION RATE . ESTIMATED GFR I S NOT APPLICABLE FOR DIALYSIS PATIEN TS. CBC W/PLT COUNT & AUTO [id number] 06:17:00 Test Item Value Reference Range Interpretation Comments WHITE BLOOD CELL COUNT (BEAKER) 12.3 K/ L 3.5-10.5 H (test code = 775) RED BLOOD CELL COUNT (BEAKER) 5.78 M/ L 4.63-6.08 (test code = 761) HEMOGLOBIN (BEAKER) (test code = 13.7 GM/DL 13.7-17.5 410) HEMATOCRIT (BEAKER) (test code = 46.7 % 40.1-51.0 411) MEAN CORPUSCULAR VOLUME (BEAKER) 80.8 fL 79.0-92.2 (test code = 753) MEAN CORPUSCULAR HEMOGLOBIN 23.7 pg 25.7-32.2 L (BEAKER) (test code = 751) MEAN CORPUSCULAR HEMOGLOBIN CONC 29.3 GM/DL 32.3-36.5 L (BEAKER) (test code = 752) RED CELL DISTRIBUTION WIDTH 16.9 % 11.6-14.4 H (BEAKER) (test code = 412) PLATELET COUNT (BEAKER) (test 353 K/CU MM 150-450 code = 756) MEAN PLATELET VOLUME (BEAKER) 10.9 fL 9.4-12.4 (test code = 754) NUCLEATED RED BLOOD CELLS 0 /100 WBC 0-0 (BEAKER) (test code = 413) NEUTROPHILS RELATIVE PERCENT 67 % (BEAKER) (test code = 429) LYMPHOCYTES RELATIVE PERCENT 20 % (BEAKER) (test code = 430) MONOCYTES RELATIVE PERCENT 10 % (BEAKER) (test code = 431) EOSINOPHILS RELATIVE PERCENT 2 % (BEAKER) (test code = 432) BASOPHILS RELATIVE PERCENT 1 % (BEAKER) (test code = 437) NEUTROPHILS ABSOLUTE COUNT 8.24 K/ L 1.78-5.38 H (BEAKER) (test code = 670) LYMPHOCYTES ABSOLUTE COUNT 2.47 K/ L 1.32-3.57 (BEAKER) (test code = 414) MONOCYTES ABSOLUTE COUNT (BEAKER) 1.26 K/ L 0.30-0.82 H (test code = 415) EOSINOPHILS ABSOLUTE COUNT 0.21 K/ L 0.04-0.54 (BEAKER) (test code = 416) BASOPHILS ABSOLUTE COUNT (BEAKER) 0.07 K/ L 0.01-0.08 (test code = 417) IMMATURE GRANULOCYTES-RELATIVE 1 % 0-1 PERCENT (BEAKER) (test code = 2801) POCT-GLUCOSE [id number] 18:47:00 Test Item Value Reference Range Interpretation Comments POC-GLUCOSE METER 86 mg/dL 70-[address] [facility] [address] ([facility]) (test code = [place] [address] 1538) [id number] 13:23:00 Test Item Value Reference Range Interpretation Comments RPR SCREEN ([facility]) (test code = Nonreactive Nonreactive 420) POCT-GLUCOSE [id number] 12:36:00 Test Item Value Reference Range Interpretation Comments POC-GLUCOSE METER 101 mg/dL 70-[address] [facility] [address] ([facility]) (test code = [place] 1538) [id number] MR, BRAIN, WITHOUT [id number] 12:20:00Reason for exam:->StrokeWhat is the patient's sedation requirement?->No SedationFINAL REPORT MR, BRAIN, WITHOUT CONTRAST INDICATION: StrokeStroke TECHNIQUE: M ultiplanar, multisequence MR imaging of the brain was obtained before and after uneventful administration of gadolinium contrast. 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 Third and fourth ventricles are also expanded. Remote ischemic changes are noted within the gemma, superior, and middle right cerebellar peduncles. A lacunar infarction is also present in the left basal ganglia. No acute ischemic or hemorrhagicinjury is present. A left frontal approach ventricular drainage catheter terminates near the midline at approximately the level of the foramen of Monro. There is no midline shift. IMPRESSION: No recent infarct or hemorrhage. Remote ischemic changes resulting in marked cystic encephalomalacia and large volume passive expansion of the right posterior ventricular horn. Ventricular dilation involving third and fourth ventricles. A left frontal approach ventricular drainage catheter is in place. 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 Signed: JR Byrnes Robert MDReport Verified Date/Time: 08/09/2018 12:20:16 Reading Location: [address] Neuro Reading Room TSH/FREE T4 IF INDICATED 2018-08-09 09:53:00 Test Item Value Reference Range Interpretation Comments THYROID STIMULATING HORMONE 1.28 uIU/mL 0.35-4.94 (BEAKER) (test code = 772) POCT-GLUCOSE [id number] 08:34:00 Test Item Value Reference Range Interpretation Comments POC-GLUCOSE METER 99 mg/dL 70-[address] [facility] [address] (BEAKER) (test code = [place] [id number]) BASIC METABOLIC [id number] 06:09:00 Test Item Value Reference Range Interpretation Comments SODIUM (BEAKER) 137 meq/L 136-145 (test code = 381) POTASSIUM (BEAKER) 4.2 meq/L 3.5-5.1 Specimen slightly (test code = 379) hemolyzed CHLORIDE (BEAKER) 104 meq/L 98-107 (test code = 382) CO2 (BEAKER) (test 28 meq/L 22-29 code = 355) BLOOD UREA NITROGEN 10 mg/dL 7-21 (BEAKER) (test code = 354) CREATININE (BEAKER) 0.72 mg/dL 0.57-1.25 Specimen slightly (test code = 358) hemolyzed GLUCOSE RANDOM 123 mg/dL 70-105 H (BEAKER) (test code = 652) CALCIUM (BEAKER) 8.8 mg/dL 8.4-10.2 (test code = 697) EGFR (BEAKER) (test 118 mL/min/1.73 ESTIM ATED GFR IS code = 1092) sq m NOT ACCURATE CREATININE CLEARANCE IN PREDICTING GLOMERULAR FILTRATION RATE . ESTIMATED GFR I S NOT APPLICABLE FOR DIALYSIS PATIEN TS. [id number] 06:05:00 Test Item Value Reference Range Interpretation Comments MAGNESIUM (BEAKER) 2.0 mg/dL 1.6-2.6 Specimen slightly (test code = 627) hemolyzed FastingLIPID [id number] 06:05:00 Test Item Value Reference Range Interpretation Comments TRIGLYCERIDES (BEAKER) 115 mg/dL Speci men slightly (test code = 540) hemolyzed CHOLESTEROL (BEAKER) 136 mg/dL Specime n slightly (test code = 631) hemolyzed HDL CHOLESTEROL (BEAKER) 25 mg/dL (test code = 976) LDL CHOLESTEROL 88 mg/dL CALCULATED (BEAKER) (test code = 633) Triglyceride Reference Range: Low Risk <150 Borderline 150-199 High Risk 200-499 Very High Risk >=500Cholesterol Reference Range: Low Risk <200 Borderline 200-239 High Risk >240HDL Cholesterol Reference Range: Low Risk >=60 High Risk <40LDL Cholesterol Reference Range: Optimal <100 Near Optimal 100-129 Borderline 130-159 High 160-189 Very High >=190 FastingCBC W/PLT COUNT & AUTO [id number] 05:51:00 Test Item Value Reference Range Interpretation Comments WHITE BLOOD CELL COUNT (BEAKER) 11.1 K/ L 3.5-10.5 H (test code = 775) RED BLOOD CELL COUNT (BEAKER) 5.58 M/ L 4.63-6.08 (test code = 761) HEMOGLOBIN (BEAKER) (test code = 13.5 GM/DL 13.7-17.5 L 410) HEMATOCRIT (BEAKER) (test code = 44.7 % 40.1-51.0 411) MEAN CORPUSCULAR VOLUME (BEAKER) 80.1 fL 79.0-92.2 (test code = 753) MEAN CORPUSCULAR HEMOGLOBIN 24.2 pg 25.7-32.2 L (BEAKER) (test code = 751) MEAN CORPUSCULAR HEMOGLOBIN CONC 30.2 GM/DL 32.3-36.5 L (BEAKER) (test code = 752) RED CELL DISTRIBUTION WIDTH 16.4 % 11.6-14.4 H (BEAKER) (test code = 412) PLATELET COUNT (BEAKER) (test 333 K/CU MM 150-450 code = 756) MEAN PLATELET VOLUME (BEAKER) 10.6 fL 9.4-12.4 (test code = 754) NUCLEATED RED BLOOD CELLS 0 /100 WBC 0-0 (BEAKER) (test code = 413) NEUTROPHILS RELATIVE PERCENT 65 % (BEAKER) (test code = 429) LYMPHOCYTES RELATIVE PERCENT 21 % (BEAKER) (test code = 430) MONOCYTES RELATIVE PERCENT 11 % (BEAKER) (test code = 431) EOSINOPHILS RELATIVE PERCENT 2 % (BEAKER) (test code = 432) BASOPHILS RELATIVE PERCENT 1 % (BEAKER) (test code = 437) NEUTROPHILS ABSOLUTE COUNT 7.23 K/ L 1.78-5.38 H (BEAKER) (test code = 670) LYMPHOCYTES ABSOLUTE COUNT 2.32 K/ L 1.32-3.57 (BEAKER) (test code = 414) MONOCYTES ABSOLUTE COUNT (BEAKER) 1.18 K/ L 0.30-0.82 H (test code = 415) EOSINOPHILS ABSOLUTE COUNT 0.25 K/ L 0.04-0.54 (BEAKER) (test code = 416) BASOPHILS ABSOLUTE COUNT (BEAKER) 0.06 K/ L 0.01-0.08 (test code = 417) IMMATURE GRANULOCYTES-RELATIVE 0 % 0-1 PERCENT (BEAKER) (test code = 2801) POCT-GLUCOSE [id number] 21:49:00 Test Item Value Reference Range Interpretation Comments POC-GLUCOSE METER 92 mg/dL 70-[address] [facility] [address] (BEAKER) (test code = [place] [address] 1538) HEMOGLOBIN [id number] 21:38:00 Test Item Value Reference Range Interpretation Comments HEMOGLOBIN A1C (BEAKER) (test code = 6.3 % 4.3-6.1 H 368) VITAMIN B12 AND [id number] 19:26:00 Test Item Value Reference Range Interpretation Comments VITAMIN B12 (BEAKER) (test code = 306 pg/mL 213-816 774) FOLATE (BEAKER) (test code = 362) 14.3 ng/mL >=7.0 TROPONIN [id number] 18:58:00 Test Item Value Reference Range Interpretation Comments TROPONIN I (BEAKER) (test code = 397) < ng/mL 0.00-0.03 Troponin I (TnI) levels must be interpreted in the context of the presenting symptoms and the clinical findings. Elevated TnI levels indicate myocardial damage, but are not specific for ischemic heart disease. Elevated TnI levels are seen in patients with other cardiac conditions (including myocarditis and congestive heart failure), and slight TnI elevations occur in patients with other conditions, including sepsis, renal failure, acidosis, acute neurological disease, and persistent tachyarrhythmia.BASIC METABOLIC [id number] 18:53:00 Test Item Value Reference Range Interpretation Comments SODIUM (BEAKER) 141 meq/L 136-145 (test code = 381) POTASSIUM (BEAKER) 3.6 meq/L 3.5-5.1 (test code = 379) CHLORIDE (BEAKER) 109 meq/L 98-107 H (test code = 382) CO2 (BEAKER) (test 27 meq/L 22-29 code = 355) BLOOD UREA NITROGEN 8 mg/dL 7-21 (BEAKER) (test code = 354) CREATININE (BEAKER) 0.67 mg/dL 0.57-1.25 (test code = 358) GLUCOSE RANDOM 131 mg/dL 70-105 H (BEAKER) (test code = 652) CALCIUM (BEAKER) 7.6 mg/dL 8.4-10.2 L (test code = 697) EGFR (BEAKER) (test 128 mL/min/1.73 ESTIM ATED GFR IS code = 1092) sq m NOT ACCURATE CREATININE CLEARANCE IN PREDICTING GLOMERULAR FILTRATION RATE . ESTIMATED GFR I S NOT APPLICABLE FOR DIALYSIS PATIEN TS. HEPATIC FUNCTION [id number] 18:51:00 Test Item Value Reference Range Interpretation Comments TOTAL PROTEIN (BEAKER) (test code = 6.9 gm/dL 6.0-8.3 770) ALBUMIN (BEAKER) (test code = 1145) 3.5 g/dL 3.5-5.0 BILIRUBIN TOTAL (BEAKER) (test code 0.3 mg/dL 0.2-1.2 = 377) BILIRUBIN DIRECT (BEAKER) (test 0.2 mg/dL 0.1-0.5 code = 706) ALKALINE PHOSPHATASE (BEAKER) (test 86 U/L 40-150 code = 346) AST (SGOT) (BEAKER) (test code = 23 U/L 5-34 353) ALT (SGPT) (BEAKER) (test code = 35 U/L 6-55 347) PROTHROMBIN [id number] 18:46:00 Test Item Value Reference Range Interpretation Comments PROTIME (BEAKER) (test code = 15.1 seconds 11.7-14.7 H 759) INR (BEAKER) (test code = 370) 1.3 <=5.9 RECOMMENDED COUMADIN/WARFARIN INR THERAPY RANGESSTANDARD DOSE: 2.0 - 3.0 Includes: PROPHYLAXIS forvenous thrombosis, systemic embolization; TREATMENT for venous thrombosis and/or pulmonary embolus.HIGH RISK: Target INR is 2.5-3.5 for patients with mechanical heart valves.CBC W/PLT COUNT & AUTO DIFFERENTIAL 2018-08-08 18:39:00 Test Item Value Reference Range Interpretation Comments WHITE BLOOD CELL COUNT (BEAKER) 11.3 K/ L 3.5-10.5 H (test code = 775) RED BLOOD CELL COUNT (BEAKER) 5.96 M/ L 4.63-6.08 (test code = 761) HEMOGLOBIN (BEAKER) (test code = 14.1 GM/DL 13.7-17.5 410) HEMATOCRIT (BEAKER) (test code = 47.5 % 40.1-51.0 411) MEAN CORPUSCULAR VOLUME (BEAKER) 79.7 fL 79.0-92.2 (test code = 753) MEAN CORPUSCULAR HEMOGLOBIN 23.7 pg 25.7-32.2 L (BEAKER) (test code = 751) MEAN CORPUSCULAR HEMOGLOBIN CONC 29.7 GM/DL 32.3-36.5 L (BEAKER) (test code = 752) RED CELL DISTRIBUTION WIDTH 17.2 % 11.6-14.4 H (BEAKER) (test code = 412) PLATELET COUNT (BEAKER) (test 329 K/CU MM 150-450 code = 756) MEAN PLATELET VOLUME (BEAKER) 9.9 fL 9.4-12.4 (test code = 754) NUCLEATED RED BLOOD CELLS 0 /100 WBC 0-0 (BEAKER) (test code = 413) NEUTROPHILS RELATIVE PERCENT 74 % (BEAKER) (test code = 429) LYMPHOCYTES RELATIVE PERCENT 16 % (BEAKER) (test code = 430) MONOCYTES RELATIVE PERCENT 8 % (BEAKER) (test code = 431) EOSINOPHILS RELATIVE PERCENT 2 % (BEAKER) (test code = 432) BASOPHILS RELATIVE PERCENT 0 % (BEAKER) (test code = 437) NEUTROPHILS ABSOLUTE COUNT 8.29 K/ L 1.78-5.38 H (BEAKER) (test code = 670) LYMPHOCYTES ABSOLUTE COUNT 1.82 K/ L 1.32-3.57 (BEAKER) (test code = 414) MONOCYTES ABSOLUTE COUNT (BEAKER) 0.85 K/ L 0.30-0.82 H (test code = 415) EOSINOPHILS ABSOLUTE COUNT 0.23 K/ L 0.04-0.54 (BEAKER) (test code = 416) BASOPHILS ABSOLUTE COUNT (BEAKER) 0.05 K/ L 0.01-0.08 (test code = 417) IMMATURE GRANULOCYTES-RELATIVE 1 % 0-1 PERCENT ([facility]) (test code = 2801) POCT-GLUCOSE [id number] 18:04:00 Test Item Value Reference Range Interpretation Comments POC-GLUCOSE METER 125 mg/dL 70-[address] [facility] [address] ([facility]) (test code = [place] 1538) [address]
[2021-07-31] MEDS ORDERED: HYDROCODONE/APAP 7.5/325 MG TAB ONE ×2 (14:24→14:28)
--- NOTE | 2021-07-31 15:23 | RAD REPORT ---
EXAM DESCRIPTION: RAD - Humerus Left - 07/31/2021 3:05 pm CLINICAL HISTORY: Left arm pain status post fall FINDINGS: No fracture is seen involving the left humerus
--- NOTE | 2021-07-31 15:24 | RAD REPORT ---
EXAM DESCRIPTION: RAD - Clavicle Left - 07/31/2021 3:05 pm CLINICAL HISTORY: Shoulder pain FINDINGS: Moderately displaced fracture involves the distal left clavicle. No dislocation
--- NOTE | 2021-07-31 15:36 | EDPHYS ---
Physician Documentation [facility] Name: Chucky Weinberg Age: 51 yrs Sex: Male : 1970 Arrival Date: 07/31/2021 Time: 12:38 Bed 10 Private MD: Bart Shah ED Physician Reina Perez HPI: 07/31 13:35 This 51 yrs old Male presents to ER via Unassigned with complaints of Shoulder cp Pain - collarbone pain, Fall Injury. 13:35 The patient or guardian complains of an injury, pain, that is acute. left shoulder and cp left clavicle. Context: resulted from a fall. 13:35 Onset: The symptoms/episode began/occurred last week. cp 13:35 Associated signs and symptoms: The patient has no apparent associated signs or cp symptoms. Treatment prior to arrival includes: no previous treatment. ROS: 13:40 Constitutional: Negative for body aches, chills, fever, poor PO intake. cp 13:40 Eyes: Negative for injury, pain, redness, and discharge. cp 13:40 Neck: Negative for pain with movement, pain at rest, stiffness. 13:40 Cardiovascular: Negative for chest pain. 13:40 Respiratory: Negative for cough, shortness of breath, wheezing. 13:40 Abdomen/GI: Negative for abdominal pain, nausea, vomiting, and diarrhea. 13:40 Back: Negative for pain at rest, pain with movement. 13:40 MS/extremity: Positive for pain, of the left clavicle and left shoulder, Negative for paresthesias. 13:40 Neuro: Negative for altered mental status, dizziness, headache, weakness. 13:40 All other systems are negative. Exam: 13:45 Constitutional: The patient appears in no acute distress, alert, awake, cp non-diaphoretic, non-toxic, well developed, well nourished. 13:45 Head/Face: Normocephalic, atraumatic. cp 13:45 Neck: C-spine: vertebral tenderness, is not appreciated, crepitus, is not appreciated, ROM/movement: is normal, is supple, without pain, no range of motions limitations. 13:45 Chest/axilla: Inspection: normal, Palpation: crepitus, is not appreciated, tenderness, that is moderate, of the left clavicle. 13:45 Cardiovascular: Rate: normal, Rhythm: regular. 13:45 Respiratory: the patient does not display signs of respiratory distress, Respirations: normal, no use of accessory muscles, no retractions, labored breathing, is not present, Breath sounds: are clear throughout, no decreased breath sounds, no stridor, no wheezing. 13:45 Back: pain, is absent, ROM is normal. 13:45 Musculoskeletal/extremity: Extremities: grossly normal except: noted in the left shoulder: pain, tenderness, ROM: limited passive range of motion due to pain, in the left shoulder, Pulses: noted to be 2+ in the left radial artery. Vital Signs: 15:03 BP 145 / 86; Pulse 98; Resp 16; Temp 98.0(TE); Pulse Ox 98% on R/A; iw Procedures: 15:30 Splinting: Splint applied to left shoulder using sling, applied by nurse. Examined by cp me, post splint application: neurovascular intact, Patient tolerated well. MDM: 13:25 Patient medically screened. cp 15:35 Data reviewed: vital signs, nurses notes, radiologic studies, plain films. cp 15:35 Differential diagnosis: Anterior dislocation with fracture, Anterior dislocation cp without fracture, Posterior dislocation with fracture, Posterior dislocation without fracture, humeral head fracture. Test interpretation: by ED physician or midlevel provider: plain radiologic studies. Counseling: I had a detailed discussion with the patient and/or guardian regarding: the historical points, exam findings, and any diagnostic results supporting the discharge/admit diagnosis, radiology results, the need for outpatient follow up, a orthopedic surgeon, to return to the emergency department if symptoms worsen or persist or if there are any questions or concerns that arise at home. Response to treatment: the patient's symptoms have markedly improved after treatment, and as a result, I will discharge patient. 07/31 13:26 Order name: XRAY Humerus LEFT; Complete Time: 15:27 cp 07/31 15: Interpretation: Report reviewed. cp 07/31 13:26 Order name: XRAY Clavicle LEFT; Complete Time: 15:27 cp 07/31 15:27 Interpretation: Report reviewed. cp 07/31 13:26 Order name: Sling; Complete Time: 15:03 cp Administered Medications: 14:25 Drug: Hydrocodone-Acetaminophen (7.5 mg-325 mg) 1 tabs Route: PO; iw Disposition Summary: 07/31/21 15:35 Discharge Ordered Location: Home cp Problem: new cp Symptoms: have improved cp Condition: Stable cp Diagnosis - Displaced fracture of shaft of left clavicle cp Followup: cp - With: Allen Ramos MD - When: 2 - 3 days - Reason: Recheck today's complaints Discharge Instructions: - Discharge Summary Sheet cp - Clavicle Fracture cp Forms: - Medication Reconciliation Form cp - Thank You Letter cp - Antibiotic Education cp - Prescription Opioid Use cp Prescriptions: - Tylenol-Codeine #3 300 mg-30 mg Oral - take 2 tablet by ORAL route every 6-8 hours; 20 tablet; Refills: 0, Product cp Selection Permitted Signatures: Dispatcher [employer] Lori Meehan RN RN iw Teo Oconnor PA PA cp
--- NOTE | 2021-07-31 15:36 | ER ---
Nurse's Notes [facility] Name: Chucky Weinberg Age: 51 yrs Sex: Male : 1970 Arrival Date: 07/31/2021 Time: 12:38 Bed 10 Private MD: Bart Shah Diagnosis: Displaced fracture of shaft of left clavicle Presentation: 07/31 14:26 Onset of symptoms was July 31, 2021. iw 14:26 Acuity: JAVIER 4 iw Vital Signs: 15:03 BP 145 / 86; Pulse 98; Resp 16; Temp 98.0(TE); Pulse Ox 98% on R/A; iw ED Course: 12:38 Patient arrived in ED. am2 12:38 Bart Shah MD is Private Physician. am2 12:54 [facility] cp 12:54 Reina Perez MD is Attending Physician. cp 14:17 Lori Fleming RN is Primary Nurse. iw 14:26 Triage completed. iw 15:07 XRAY Humerus LEFT In Process Unspecified. EDMS 15:07 XRAY Clavicle LEFT In Process Unspecified. EDMS 15:34 Allen Ramos MD is Referral Physician. cp Administered Medications: 14:25 Drug: Hydrocodone-Acetaminophen (7.5 mg-325 mg) 1 tabs Route: PO; iw Outcome: 15:35 Discharge ordered by MD. cp 15:54 Patient left the ED. cp Signatures: Dispatcher [employer] EDMS Lori Fleming RN RN iw Teo Oconnor PA PA cp Nimisha Norris am2
[2021-07-31 15:58] VITALS: BP 145/86; TEMP 98; O2SAT 98
== END 2021-07-31 15:54 | disposition home or self-care (01) ==
LOC: ER 12:36
DX: S42.022A Displaced fracture of shaft of left clavicle, initial encounter for closed fracture (principal); W18.30XA Fall on same level, unspecified, initial encounter
CPT/HCPCS: 99283

== ENCOUNTER 2021-08-09 04:23 | Emergency (ER) | payer OTHER ==
--- OUTSIDE RECORDS SUMMARY | 2021-08-09 04:34 | XMS REPORT | Continuity of Care Document ---
:1970 Author Organization [facility] t Address [address] [place] [address] Care Team Providers Name Role Phone Unknown Primary Care Physician Unavailable CRAIG Attending Clinician Unavailable [id number] Attending Clinician Unavailable Boris Lay Attending Clinician Unavailable Attending Clinician Unavailable Singer BURLESON Attending Clinician Marcelino GREER Attending Clinician Unavailable Marcelino Iglesias Attending Clinician EUGENE Attending Clinician Unavailable Eugene ELLISON Attending Clinician Marcelino Field MD Attending Clinician Aaron ELLISON Attending Clinician Brain ELLISON Attending Clinician Doctor Unassigned, Name Attending Clinician Unavailable Luis MAYO Attending Clinician Unavailable Luis MAYO Attending Clinician Unavailable Luis Mayo MD Attending Clinician BRAIN Attending Clinician Unavailable Provider, Urgent Care Attending Clinician Unavailable oJse ZAVALA, A Attending Clinician Unavailable 2, Lab Attending Clinician Unavailable 1, Sleep Lab Bed Attending Clinician Unavailable Azar BURLESON Attending Clinician Iram Fleming DO Attending Clinician Pob, Lab Main Attending Clinician Unavailable Nette Singer MD Attending Clinician Ira CHAMPION Attending Clinician Unavailable CHARITO BAEZA Attending Clinician Unavailable LYNDSEY CORTEZ Attending Clinician Unavailable [id number] Admitting Clinician Unavailable Admitting Clinician Unavailable GREER, R Admitting Clinician Unavailable EUGENE Admitting Clinician Unavailable Ira CHAMPION Admitting Clinician Unavailable CHARITO BAEZA Admitting Clinician Unavailable LYNDSEY CORTEZ Admitting Clinician Unavailable Payers Payer Name Policy Type Policy Number Effective Date Expiration Date S [id number] 2021 00:00:00 MCR MCR [id number] HUMM HUM [id number] [facility] DUAL [id number] COMP CHOICE PPO 00:00:00 DSNP [place]ICAID [place] [id number] 2021 00:00:00 Problems Condition Condition Condition Status Onset Resolution Last Treating Co mments Source Name Details Category Date Date Treatment Clinician Date Closed Closed Disease Active [facility] displaced displaced 5-16 Heal th fracture fracture 00:00: of shaft of shaft 00 of left of left clavicle clavicle Other Other Disease Active 2020-0 Univers headache headache 3-05 ity of syndrome syndrome 00:00: [place] [facility] 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 1-14 ity of 00:00: [place] [facility] Mobility Mobility Disease Active 2020-0 Unive rs impaired impaired 1-14 ity of 00:00: [place] 00 Medical Branch Balance Balance Disease Active 2020-0 [facility] problem problem 1-14 ity of 00:00: [place] [facility] Sleep Sleep Disease Active 2020-0 Univers apnea in apnea in 1-14 ity of adult adult 00:00: [place] [address] Medical Branch Class 3 Class 3 Disease Active 2020-0 Univers severe severe 1-14 ity of obesity obesity 00:00: [place] due to due to 00 Medical excess excess Branch calories calories without without serious serious comorbidit comorbidit y with y with body mass body mass index index (BMI) of (BMI) of 40.0 to 40.0 to 44.9 in 44.9 in adult adult Urinary Urinary Disease Active Univers incontinen incontinen 1-14 it y of ce, ce, 00:00: [place] unspecifie unspecifie 00 Me dical d type d type Branch Neuropathy Neuropathy Disease Active U nivers 1-14 ity of 00:00: Medical Branch Anxiety Anxiety Disease Active Univers 1-14 ity of 00:00: [place] [facility] Impaired Impaired Disease Active Unive rs gait and gait and 5-28 ity of mobility mobility 00:00: Medical Branch Communicat Communicat Disease Active U nivers ing ing 5-25 ity of hydrocepha hydrocepha 00:00: [place] erin erin Medical Branch Left-sided Left-sided Disease Active U nivmalaika weakness weakness 3-04 ity of 00:00: [place] [facility] Stroke Stroke Disease Active 2017-03 Univers (cerebrum) (cerebrum) 0-23 it y of 00:00: [place] 00 Medical Branch Hypertensi Hypertensi Disease Active 2017-03 U nivers on, on, 0-23 ity of unspecifie [place]specifie [place] type 00 [facility] Hyperlipid Hyperlipid Disease Active 2017-03 U nivers emia, emia, 0-23 ity of unspecifie unspecifie [place] Medical hyperlipid hyperlipid Br anch emia type emia type Hemorrhagi Hemorrhagi Disease Active U nivers c stroke c stroke 11-24 ity of 00:00: [place] 00 Medical Branch Depression Depression Disease Active U nivers , , 11-24 ity of unspecifie unspecifie [...] Urinary Urinary Disease Active Univers hesitancy hesitancy 9-08 ity of 00:00: [place] 00 Medical Branch Malfunctio Malfunctio Disease Active U [...] nivers ic scar of ic scar of 8-17 it y of skin skin 00:00: [place] 00 Medical Branch Visual Visual Disease Active Univers disturbanc disturbanc 8-17 it y of e e 00:00: [place] 00 Medical Branch Spastic Spastic Disease Active Univers hemiplegia hemiplegia 7-05 it [place] of affecting affecting 00:[place] Medical nondominan nondominan Br anch t side t side Allergies, Adverse Reactions, Alerts Allergy Allergy Status Severity Reaction(s) Onset Inactive Treating Comm ents Source Name Type Date Date Clinician NO KNOWN Drug Active Univers ALLERGIE Class ity of [facility] Social History Social Habit Start Date Stop Date Quantity Comments Source Exposure to Not sure [facility] SARS-CoV-2 (event) Tobacco use and 2016-11-24 2016-11-24 Never used [facility] [place] exposure 00:00:00 00:00:00 Medical Branch History of tobacco 2009-11-24 Smoker [facility] use 00:00:00 Medical Branch Sex Ass[birth year] At [birth year] [facility] 00:00:00 00:00:00 Smoking Status Start Date Stop Date Source Tobacco smoking [facility] consumption unknown Former smoker 2016-11-24 00:00:00 2016-11-24 [place] o [facility] 00:00:00 Medical Branch Medications Ordered Filled Start Stop Current Ordering Indication Dosage Frequency Signature Comments Components Source Medication Medication Date Date Medication? Clinician (SIG) Name Name lidocaine 2021- Yes [id number] 1{patch QD Apply 1 [facility] (Lidoderm) 516 06-07 } patch Health 5 % patch 00:00: 04:59 topically 00 :00 1 (one) time each day for 21 days. Remove & discard patch within 12 hours or as directed by MD.APPLY TO LEFT SHOULDER FENTanyl PF 2021- No 75ug 75 mcg, Un [place] (SUBLIMAZE 5-10 05-10 Slow IV ity o f (PF)) 17:17: 17:18 Push, [place] injection 00 :00 ONCE, 1 Medical 75 mcg dose, On Branch Sun07/26/21 at 1230, STAT HYDROcodone 2021- Yes [id number] .5{tbl} Take 0.5-1 Univers -acetaminop 5-10 05-18 tablets by i ty of [place] (NORCO) 00:00: 04:59 [place] 10-325 mg 00 :00 every 6 Medical tablet (six) Branch hours as needed for Pain (scale 7-10) for up to 7 days. Indication s: acute pain naloxone 2021- No .4mg 0.4 mg, Unive rs (NARCAN) 06-08 Slow IV ity of injection 17:30: 16:24 Push, [place] 0.4 mg 00 :00 ONCE, 1 Medical dose, On Branch Sun06/08/21 at 1230, Routine HYDROcodone 2021- No 7.5mg 7.5 mg, U nivers -acetaminop 06-07 Oral, ity of hen (HYCET) 18:00: 16:50 [place]CE[place] 1 [place] 7.5-325 [place] :00 dose, On Medical mg/15 mL e Branch PEDI 06/07/21 at solution 1300, LEW 7.5 mg ibuprofen Yes [id number] 800mg Take 1 Univers 800 mg 3-22 tablet by ity of tablet 00:00: mouth [place] 00 every 8 Medical (eight) Branch hours as needed for Pain (scale 4-6). ondansetron Yes [id number] 4mg Take 1 Univers 4 mg 3-22 tablet by ity of disintegrat 00:00: mouth [place] ing tablet 00 every 4 Medica l (four) Branch hours as needed for Nausea and Vomiting (N/V). ibuprofen 2022-0 Yes [id number] 800mg Take 1 Univers 800 mg 3-22 tablet by ity of tablet 00:00: mouth [place] 00 every 8 Medical (eight) Branch hours as needed for Pain (scale 4-6). ondansetron 2022-0 Yes [id number] 4mg Take 1 Univers 4 mg 3-22 tablet by ity of disintegrat 00:00: mouth [place] ing tablet 00 every 4 Medica l (four) Branch hours as needed for Nausea and Vomiting (N/V). ibuprofen 2021-0 Yes [id number] 800mg Take 1 Univers 800 mg 3-22 tablet by ity of tablet 00:00: mouth [place] 00 every 8 Medical (eight) Branch hours as needed for Pain (scale 4-6). ondansetron 2021-0 Yes [id number] 4mg Take 1 Univers 4 mg 3-22 tablet by ity of disintegrat 00:00: mouth [place] ing tablet 00 every 4 Medica l (four) Branch hours as needed for Nausea and Vomiting (N/V). ibuprofen 2021-0 Yes [id number] 800mg Take 1 Univers 800 mg 3-22 tablet by ity of tablet 00:00: mouth [place] 00 every 8 Medical (eight) Branch hours as needed for Pain (scale 4-6). ondansetron 2021-0 Yes [id number] 4mg Take 1 Univers 4 mg 3-22 [...] 7 days. Indication s: acute pain HYDROcodone 2021-2021- Yes [id number] 1{tbl} Take 1 U nivers -acetaminop 3-22 03-30 tablet by it y of hen (NORCO) 00:00: 04:59 [place] 7.5-325 mg 00 :00 every 8 Medica l per tablet (eight) Branch hours as needed for Pain for up to 7 days. Indication s: acute pain neomycin-po 2019- 2020- No [id number] 3[drp] Place 3 Univers lymyxin-hyd 4-03 -09 Drops in ity of rocortisone 00:00: 04:59 left ear 4 [place] otic 00 :00 (four) Medical solution times Branch daily for 5 days. levoFLOXaci 2020- No [id number] 750mg Take 1 Univers n 750 mg 3-15 -21 tablet by ity o f tablet 00:00: 04:59 mouth [place] 00 :00 every 24 Medical (twenty-fo Branch ur) hours for 5 days. levoFLOXaci 2019- 2020- No [id number] 750mg Take 1 Univers n 750 mg 3-15 -21 tablet by ity o f tablet 00:00: 04:59 mouth [place] 00 :00 every 24 Medical (twenty-fo Branch ur) hours for 5 days. levoFLOXaci 2019- No [id number] 750mg Take 1 Univers n 750 mg 3-15 -21 tablet by ity o f tablet 00:00: 04:59 mouth [place] 00 :00 every 24 Medical (twenty-fo Branch ur) hours for 5 days. levoFLOXaci 2020- No [id number] 750mg Take 1 Univers n 750 mg 3-15 -21 tablet by ity o f tablet 00:00: 04:59 mouth [place] 00 :00 every 24 Medical (twenty-fo Branch ur) hours for 5 days. pioglitazon Yes [id number] 30mg Take 1 Univers e 30 mg 3-13 tablet by ity of tablet 00:00: mouth [place] 00 daily. Medical Branch pioglitazon 2019-0 Yes [id number] 30mg Take 1 Univers e 30 mg 3-13 tablet by ity of tablet 00:00: mouth [place] 00 daily. Medical Branch pioglitazon 2019-0 Yes [id number] 30mg Take 1 Univers e 30 mg 3-13 tablet by ity of tablet 00:00: mouth [place] 00 daily. Medical Branch pioglitazon Yes [id number] 30mg Take 1 Univers e 30 mg 3-13 tablet by ity of tablet 00:00: mouth [place] 00 daily. Medical Branch pioglitazon 2019-0 Yes [id number] 30mg Take 1 Univers e 30 mg 3-13 tablet by ity of tablet 00:00: mouth [place] 00 daily. Medical Branch pioglitazon 2020-0 Yes [id number] 30mg Take 1 Univers e 30 mg 3-13 tablet by ity of tablet 00:00: mouth [place] 00 daily. Medical Branch pioglitazon 2020-0 Yes [id number] 30mg Take 1 Univers e 30 mg 3-13 tablet by ity of tablet 00:00: mouth [place] 00 daily. Medical Branch pioglitazon 2020-0 Yes [id number] 30mg Take 1 Univers e 30 mg 3-13 tablet by ity of tablet 00:00: mouth [place] 00 daily. Medical Branch pioglitazon 2020-0 Yes [id number] 30mg Take 1 Univers e 30 mg 3-13 tablet by ity of tablet 00:00: mouth [place] 00 daily. Medical Branch pioglitazon 2019-0 Yes [id number] 30mg Take 1 Univers e 30 mg 3-13 tablet by ity of tablet 00:00: mouth [place] 00 daily. Medical Branch pioglitazon 2019-0 Yes [id number] 30mg Take 1 Univers e 30 mg 3-13 tablet by ity of tablet 00:00: mouth [place] 00 daily. Medical Branch pioglitazon 2019-0 Yes [id number] 30mg Take 1 Univers e 30 mg 3-13 tablet by ity of tablet 00:00: mouth [place] 00 daily. Medical Branch pioglitazon 2020-0 Yes [id number] 30mg Take 1 Univers e 30 mg 3-13 tablet by ity of tablet 00:00: mouth [place] 00 daily. Medical Branch pioglitazon 2020-0 Yes [id number] 30mg Take 1 Univers e 30 mg 3-13 tablet by ity of tablet 00:00: mouth [place] 00 daily. Medical Branch pioglitazon 2020-0 Yes [id number] 30mg Take 1 Univers e 30 mg 3-13 tablet by ity of tablet 00:00: mouth [place] 00 daily. Medical Branch pioglitazon 2020-0 Yes [id number] 30mg Take 1 Univers e 30 mg 3-13 tablet by ity of tablet 00:00: mouth [place] 00 daily. Medical Branch pioglitazon 2020-0 Yes [id number] 30mg Take 1 Univers e 30 mg 3-13 tablet by ity of tablet 00:00: mouth [place] 00 daily. Medical Branch pioglitazon 2020-0 Yes [id number] 30mg Take 1 Univers e 30 mg 3-13 tablet by ity of tablet 00:00: mouth [place] 00 daily. Medical Branch pioglitazon 2020-0 Yes [id number] 30mg Take 1 Univers e 30 mg 3-13 tablet by ity of tablet 00:00: mouth [place] 00 daily. Medical Branch pioglitazon 2020-0 Yes [id number] 30mg Take 1 Univers e 30 mg 3-13 tablet by ity of tablet 00:00: mouth [place] 00 daily. Medical Branch pioglitazon 2020-0 Yes [id number] 30mg Take 1 Univers e 30 mg 3-13 tablet by ity of tablet 00:00: mouth [place] 00 daily. Medical Branch pioglitazon 2020-0 Yes [id number] 30mg Take 1 Univers e 30 mg 3-13 tablet by ity of tablet 00:00: mouth [place] 00 daily. Medical Branch pioglitazon 2020-0 Yes [id number] 30mg Take 1 Univers e 30 mg 3-13 tablet by ity of tablet 00:00: mouth [place] 00 daily. Medical Branch pioglitazon 2020-0 Yes [id number] 30mg Take 1 Univers e 30 mg 3-13 tablet by ity of tablet 00:00: mouth [place] 00 daily. Medical Branch pioglitazon 2020-0 Yes [id number] 30mg Take 1 Univers e 30 mg 3-13 tablet by ity of tablet 00:00: mouth [place] 00 daily. Medical Branch lisinopril 2020-0 Yes [id number] 5mg Take 1 U nivers 5 mg tablet 3-11 tablet by ity of 00:00: mouth [place] 00 daily. Medical Branch lisinopril 2020-0 Yes [id number] 5mg Take 1 U nivers 5 mg tablet 3-11 tablet by ity of 00:00: mouth [place] 00 daily. [facility] Branch lisinopril 2020-0 Yes [id number] 5mg Take 1 U nivers 5 mg tablet 3-11 tablet by ity of 00:00: mouth [place] 00 daily. [facility] Branch lisinopril 2020-0 Yes [id number] 5mg Take 1 U nivers 5 mg tablet 3-11 tablet by ity of 00:00: mouth [place] 00 daily. Medical Branch lisinopril 2020-0 Yes [id number] 5mg Take 1 U nivers 5 mg tablet 3-11 tablet by ity of 00:00: mouth [place] 00 daily. Medical Branch lisinopril 2020-0 Yes [id number] 5mg Take 1 U nivers 5 mg tablet 3-11 tablet by ity of 00:00: mouth [place] 00 daily. Medical Branch lisinopril 2020-0 Yes [id number] 5mg Take 1 U nivers 5 mg tablet 3-11 tablet by ity of 00:00: mouth [place] 00 daily. Medical Branch lisinopril 2020-0 Yes [id number] 5mg Take 1 U nivers 5 mg tablet 3-11 tablet by ity of 00:00: mouth [place] 00 daily. Medical Branch lisinopril 2020-0 Yes [id number] 5mg Take 1 U nivers 5 mg tablet 3-11 tablet by ity of 00:00: mouth [place] 00 daily. Medical Branch lisinopril 2020-0 Yes [id number] 5mg Take 1 U nivers 5 mg tablet 3-11 tablet by ity of 00:00: mouth [place] 00 daily. Medical Branch lisinopril 2020-0 Yes [id number] 5mg Take 1 U nivers 5 mg tablet 3-11 tablet by ity of 00:00: mouth [place] 00 daily. Medical Branch lisinopril 2020-0 Yes [id number] 5mg Take 1 U nivers 5 mg tablet 3-11 tablet by ity of 00:00: mouth [place] 00 daily. Medical Branch lisinopril 2020-0 Yes [id number] 5mg Take 1 U nivers 5 mg tablet 3-11 tablet by ity of 00:00: mouth [place] 00 daily. Medical Branch lisinopril 2020-0 Yes [id number] 5mg Take 1 U nivers 5 mg tablet 3-11 tablet by ity of 00:00: mouth [place] 00 daily. Medical Branch lisinopril 2020-0 Yes [id number] 5mg Take 1 U nivers 5 mg tablet 3-11 tablet by ity of 00:00: mouth [place] 00 daily. Medical Branch lisinopril 2020-0 Yes [id number] 5mg Take 1 U nivers 5 mg tablet 3-11 tablet by ity of 00:00: mouth [place] 00 daily. Medical Branch lisinopril 2020-0 Yes [id number] 5mg Take 1 U nivers 5 mg tablet 3-11 tablet by ity of 00:00: mouth [place] 00 daily. Medical Branch lisinopril 2020-0 Yes [id number] 5mg Take 1 U nivers 5 mg tablet 3-11 tablet by ity of 00:00: mouth [place] 00 daily. Medical Branch lisinopril 2020-0 Yes [id number] 5mg Take 1 U nivers 5 mg tablet 3-11 tablet by ity of 00:00: mouth [place] 00 daily. Medical Branch lisinopril 2020-0 Yes [id number] 5mg Take 1 U nivers 5 mg tablet 3-11 tablet by ity of 00:00: mouth [place] 00 daily. Medical Branch lisinopril 2020-0 Yes [id number] 5mg Take 1 U nivers 5 mg tablet 3-11 tablet by ity of 00:00: mouth [place] 00 daily. Medical Branch lisinopril 2020-0 Yes [id number] 5mg Take 1 U nivers 5 mg tablet 3-11 tablet by ity of 00:00: mouth [place] 00 daily. Medical Branch lisinopril 2020-0 Yes [id number] 5mg Take 1 U nivers 5 mg tablet 3-11 tablet by ity of 00:00: mouth [place] 00 daily. Medical Branch lisinopril 2020-0 Yes [id number] 5mg Take 1 U nivers 5 mg tablet 3-11 tablet by ity of 00:00: mouth [place] 00 daily. Medical Branch lisinopril 2020-0 Yes [id number] 5mg Take 1 U nivers 5 mg tablet 3-11 tablet by ity of 00:00: mouth [place] 00 daily. Medical Branch lisinopril 2020-0 Yes [id number] 5mg Take 1 U nivers 5 mg tablet 3-11 tablet by ity of 00:00: mouth [place] 00 daily. Medical Branch lisinopril 2020-0 Yes [id number] 5mg Take 1 U nivers 5 mg tablet 3-11 tablet by ity of 00:00: mouth [place] 00 daily. Medical Branch lisinopril 2020-0 Yes [id number] 5mg Take 1 U nivers 5 mg tablet 3-11 tablet by ity of 00:00: mouth [place] 00 daily. Medical Branch lisinopril 2020-0 Yes [id number] 5mg Take 1 U nivers 5 mg tablet 3-11 tablet by ity of 00:00: mouth [place] 00 daily. Medical Branch lisinopril 2020-0 Yes [id number] 5mg Take 1 U nivers 5 mg tablet 3-11 tablet by ity of 00:00: mouth [place] 00 daily. Medical Branch lisinopril 2020-0 Yes [id number] 5mg Take 1 U nivers 5 mg tablet 3-11 tablet by ity of 00:00: mouth [place] 00 daily. Medical Branch lisinopril 2020-0 Yes [id number] 5mg Take 1 U nivers 5 mg tablet 3-11 tablet by ity of 00:00: mouth [place] 00 daily. Medical Branch metFORMIN 2020-0 2020- No 500mg Take 500 Un uhnter 500 mg 3-05 03-05 mg by ity of tablet 21:37: 00:00 mouth 2 [place] 52 :00 (two) Medical times Branch daily with meals. metFORMIN 2020-0 2020- No 500mg Take 500 Un [place] 500 mg 3-05 03-05 mg by ity of tablet 21:37: 00:00 mouth 2 [place] 52 :00 (two) Medical times [place] daily with meals. hydrocortis 2020-0 Yes 10mg Take 10 mg Univers one 10 mg 3-05 by mouth ity of tablet 20:28: every [place] 24 morning. Medical Branch hydrocortis 2020-0 Yes 10mg Take 10 mg Univers one 10 mg 3-05 by mouth ity of tablet 20:28: every [place] 24 morning. Medical Branch hydrocortis 2020-0 Yes 10mg Take 10 mg Univers one 10 mg 3-05 by mouth ity of tablet 20:28: every [place] 24 morning. Medical Branch hydrocortis 2020-0 Yes 10mg Take 10 mg Univers one 10 mg 3-05 by mouth ity of tablet 20:28: every [place] 24 morning. Medical Branch hydrocortis 2020-0 Yes 10mg Take 10 mg Univers one 10 mg 3-05 by mouth ity of tablet 20:28: every [place] 24 morning. Medical Branch hydrocortis 2020-0 Yes 10mg Take 10 mg Univers one 10 mg 3-05 by mouth ity of tablet 20:28: every [place] 24 morning. Medical Branch hydrocortis 2020-0 Yes 10mg Take 10 mg Univers one 10 mg 3-05 by mouth ity of tablet 20:28: every [place] 24 morning. Medical Branch hydrocortis 2020-0 Yes [...] by mouth ity of tablet 20:28: every [place] 24 morning. Medical Branch hydrocortis 2020-0 Yes 10mg Take 10 mg Univers one 10 mg 3-05 by mouth ity of tablet 14:28: every [place] 24 morning. Medical Branch hydrocortis 2020-0 Yes 10mg Take 10 mg Univers one 10 mg 3-05 by mouth ity of tablet 14:28: every [place] 24 morning. Medical Branch hydrocortis 2020-0 Yes 10mg Take 10 mg Univers one 10 mg 3-05 by mouth ity of tablet 14:28: every [place] 24 morning. Medical Branch hydrocortis 2020-0 Yes 10mg Take 10 mg Univers one 10 mg 3-05 by mouth ity of tablet 14:28: every [place] 24 morning. Medical Branch metFORMIN 2020-0 Yes [id number] 1000mg Take 1 Univers 1,000 mg 3-05 tablet by ity of tablet 00:00: mouth [place] (two) Medical times Branch daily with meals. metFORMIN 2020-0 Yes [id number] 1000mg Take 1 Univers 1,000 mg 3-05 tablet by ity of tablet 00:00: mouth [address] [place] [address] (two) Medical times Branch daily with meals. metFORMIN 2020-0 Yes [id number] 1000mg Take 1 Univers 1,000 mg 3-05 tablet by ity of tablet 00:00: mouth [place] ([facility]) Medical times Branch daily with meals. metFORMIN 2020-0 Yes [id number] 1000mg Take 1 Univers 1,000 mg 3-05 tablet by ity of tablet 00:00: mouth [place] (two) Medical times Branch daily with meals. metFORMIN 2020-0 Yes [id number] 1000mg Take 1 Univers 1,000 mg 3-05 tablet by ity of tablet 00:00: mouth [place] (two) Medical times Branch daily with meals. metFORMIN 2020-0 Yes [id number] 1000mg Take 1 Univers 1,000 mg 3-05 tablet by ity of tablet 00:00: mouth [place] (two) Medical times Branch daily with meals. metFORMIN 2020-0 Yes [id number] 1000mg Take 1 Univers 1,000 mg 3-05 tablet by ity of tablet 00:00: mouth [place] (two) Medical times Branch daily with meals. metFORMIN 2020-0 Yes [id number] 1000mg Take 1 Univers 1,000 mg 3-05 tablet by ity of tablet 00:00: mouth (two) Medical times Branch daily with meals. metFORMIN 2020-0 Yes [id number] 1000mg Take 1 Univers 1,000 mg 3-05 tablet by ity of tablet 00:00: mouth (two) Medical times Branch daily with meals. metFORMIN 2020-0 Yes [id number] 1000mg Take 1 Univers 1,000 mg 3-05 tablet by ity of tablet 00:00: mouth (two) Medical times Branch daily with meals. metFORMIN 2020-0 Yes [id number] 1000mg Take 1 Univers 1,000 mg 3-05 tablet by ity of tablet 00:00: mouth (two) Medical times Branch daily with meals. metFORMIN 2020-0 Yes [id number] 1000mg Take 1 Univers 1,000 mg 3-05 tablet by ity of tablet 00:00: mouth (two) Medical times Branch daily with meals. metFORMIN 2020-0 Yes [id number] 1000mg Take 1 Univers 1,000 mg 3-05 tablet by ity of tablet 00:00: mouth (two) Medical times Branch daily with meals. pioglitazon 2020-0 Yes [id number] 15mg Take 1 Univers e 15 mg 3-05 tablet by ity of tablet 00:00: mouth (two) Medical times Branch daily. metFORMIN 2020-0 Yes [id number] 1000mg Take 1 Univers 1,000 mg 3-05 tablet by ity of tablet 00:00: mouth (two) Medical times Branch daily with meals. pioglitazon 2020-0 Yes [id number] 15mg Take 1 Univers e 15 mg 3-05 tablet by ity of tablet 00:00: mouth (two) Medical times Branch daily. metFORMIN 2020-0 Yes [id number] 1000mg Take 1 Univers 1,000 mg 3-05 tablet by ity of tablet 00:00: mouth (two) Medical times Branch daily with meals. pioglitazon 2020-0 Yes [id number] 15mg Take 1 Univers e 15 mg 3-05 tablet by ity of tablet 00:00: mouth (two) Medical times Branch daily. metFORMIN 2020-0 Yes [id number] 1000mg Take 1 Univers 1,000 mg 3-05 tablet by ity of tablet 00:00: mouth (two) Medical times Branch daily with meals. pioglitazon 2020-0 Yes [id number] 15mg Take 1 Univers e 15 mg 3-05 tablet by ity of tablet 00:00: mouth (two) Medical times Branch daily. metFORMIN 2020-0 Yes [id number] 1000mg Take 1 Univers 1,000 mg 3-05 tablet by ity of tablet 00:00: mouth (two) Medical times Branch daily with meals. pioglitazon 2020-0 Yes [id number] 15mg Take 1 Univers e 15 mg 3-05 tablet by ity of tablet 00:00: mouth (two) Medical times Branch daily. metFORMIN 2020-0 Yes [id number] 1000mg Take 1 Univers 1,000 mg 3-05 tablet by ity of tablet 00:00: mouth (two) Medical times Branch daily with meals. pioglitazon 2020-0 Yes [id number] 15mg Take 1 Univers e 15 mg 3-05 tablet by ity of tablet 00:00: mouth (two) Medical times Branch daily. metFORMIN 2020-0 Yes [id number] 1000mg Take 1 Univers 1,000 mg 3-05 tablet by ity of tablet 00:00: mouth (two) Medical times Branch daily with meals. pioglitazon 2020-0 Yes [id number] 15mg Take 1 Univers e 15 mg 3-05 tablet by ity of tablet 00:00: mouth (two) Medical times Branch daily. metFORMIN 2020-0 Yes [id number] 1000mg Take 1 Univers 1,000 mg 3-05 tablet by ity of tablet 00:00: mouth (two) Medical times Branch daily with meals. pioglitazon 2020-0 Yes [id number] 15mg Take 1 Univers e 15 mg 3-05 tablet by ity of tablet 00:00: mouth (two) Medical times Branch daily. metFORMIN 2020-0 Yes [id number] 1000mg Take 1 Univers 1,000 mg 3-05 tablet by ity of tablet 00:00: mouth (two) Medical times Branch daily with meals. pioglitazon 2020-0 Yes [id number] 15mg Take 1 Univers e 15 mg 3-05 tablet by ity of tablet 00:00: mouth (two) Medical times Branch daily. metFORMIN 2020-0 Yes [id number] 1000mg Take 1 Univers 1,000 mg 3-05 tablet by ity of tablet 00:00: mouth (two) Medical times Branch daily with meals. pioglitazon 2020-0 Yes [id number] 15mg Take 1 Univers e 15 mg 3-05 tablet by ity of tablet 00:00: mouth (two) Medical times Branch daily. metFORMIN 2020-0 Yes [id number] 1000mg Take 1 [facility] 1,000 mg 3-05 tablet by [facility] tablet 00:00: mouth (two) Medical times Branch daily with meals. pioglitazon 2020-0 Yes [id number] 15mg Take 1 [facility] e 15 mg 3-05 tablet by [facility] tablet 00:00: mouth (two) Medical times Branch daily. metFORMIN 2020-0 Yes [id number] 1000mg Take 1 [facility] 1,000 mg 3-05 tablet by [facility] tablet 00:00: mouth (two) Medical times Branch daily with meals. pioglitazon 2020-0 Yes [id number] 15mg Take 1 [facility] e 15 mg 3-05 tablet by [facility] tablet 00:00: mouth (two) Medical times Branch daily. metFORMIN 2020-0 Yes [id number] 1000mg Take 1 [facility] 1,000 mg 3-05 tablet by [facility] tablet 00:00: mouth (two) Medical times Branch daily with meals. metFORMIN 2020-0 Yes [id number] 1000mg Take 1 [facility] 1,000 mg 3-05 tablet by [facility] tablet 00:00: mouth (two) Medical times Branch daily with meals. metFORMIN 2020-0 Yes [id number] 1000mg Take 1 [facility] 1,000 mg 3-05 tablet by [facility] tablet 00:00: mouth (two) Medical times Branch daily with meals. metFORMIN 2020-0 Yes [id number] 1000mg Take 1 [facility] 1,000 mg 3-05 tablet by [facility] tablet 00:00: mouth (two) Medical times Branch daily with meals. metFORMIN 2020-0 Yes [id number] 1000mg Take 1 [facility] 1,000 mg 3-05 tablet by [facility] tablet 00:00: mouth (two) Medical times Branch daily with meals. metFORMIN 2020-0 Yes [id number] 1000mg Take 1 [facility] 1,000 mg 3-05 tablet by [facility] tablet 00:00: mouth (two) Medical times Branch daily with meals. metFORMIN 2020-0 Yes [id number] 1000mg Take 1 [facility] 1,000 mg 3-05 tablet by [facility] tablet 00:00: mouth (two) Medical times Branch daily with meals. metFORMIN 2020-0 Yes [id number] 1000mg Take 1 [facility] 1,000 mg 3-05 tablet by [facility] tablet 00:00: mouth (two) Medical times Branch daily with meals. metFORMIN 2020-0 Yes [id number] 1000mg Take 1 [facility] 1,000 mg 3-05 tablet by [facility] tablet 00:00: mouth (two) Medical times Branch daily with meals. metFORMIN 2020-0 Yes [id number] 1000mg Take 1 [facility] 1,000 mg 3-05 tablet by [facility] tablet 00:00: mouth (two) Medical times Branch daily with meals. metFORMIN 2020-0 Yes [id number] 1000mg Take 1 [facility] 1,000 mg 3-05 tablet by [facility] tablet 00:00: mouth (two) Medical times Branch daily with meals. metFORMIN 2020-0 Yes [id number] 1000mg Take 1 [facility] 1,000 mg 3-05 tablet by [facility] tablet 00:00: mouth (two) Medical times Branch daily with meals. metFORMIN 2020-0 Yes [id number] 1000mg Take 1 [facility] 1,000 mg 3-05 tablet by [facility] tablet 00:00: mouth (two) Medical times Branch daily with meals. metFORMIN 2020-0 Yes [id number] 1000mg Take 1 [facility] 1,000 mg 3-05 tablet by [facility] tablet 00:00: mouth (two) Medical times Branch daily with meals. metFORMIN 2020-0 Yes [id number] 1000mg Take 1 [facility] 1,000 mg 3-05 tablet by [facility] tablet 00:00: mouth (two) Medical times Branch daily with meals. pioglitazon 2020-0 2020- No [id number] 15mg Take 1 [facility] e 15 mg 05-21 tablet by [facility] tablet 00:00: 00:00 mouth 2 [place] 00 :00 (two) Medical times Branch daily. metFORMIN 2020-0 Yes 500mg Take 500 [facility] vers 500 mg 1-29 mg by [facility] of tablet 20:33: mouth 2 [place] [address] (two) Medical times Branch daily with meals. metFORMIN 2020-0 Yes 500mg Take 500 [facility] vers 500 mg 1-29 mg by [facility] of tablet 20:33: mouth 2 [place] [address] (two) Medical times Branch daily with meals. metFORMIN 2020-0 Yes 500mg Take 500 [facility] vers 500 mg 1-29 mg by [facility] of tablet 20:33: mouth 2 [place] [address] (two) Medical times Branch daily with meals. metFORMIN 2020-0 Yes 500mg Take 500 [facility] vers 500 mg 1-29 mg by [facility] of tablet 20:33: mouth 2 [place] [address] (two) Medical times Branch daily with meals. metFORMIN 2020-0 Yes 500mg Take 500 [facility] vers 500 mg 1-29 mg by [facility] of tablet 20:33: mouth [address] [place] [address] (two) Medical times Branch daily with meals. metFORMIN 2020-0 Yes 500mg Take 500 [facility] vers 500 mg 1-29 mg by [facility] of tablet 20:33: mouth [address] [place] [address] ([facility]) Medical times Branch daily with meals. metFORMIN 2020-0 Yes 500mg Take 500 [facility] vers 500 mg 1-29 mg by it[facility] of tablet 20:33: mouth 2 [place] [address] (two) Medical times Branch daily with meals. metFORMIN 2020-0 Yes 500mg Take 500 [facility] vers 500 mg 1-29 mg by ity of tablet 20:33: mouth 2 [place] [address] (two) Medical times Branch daily with meals. metFORMIN 2020-0 Yes 500mg Take 500 [facility] vers 500 mg 1-29 mg by ity of tablet 20:33: mouth 2 [place] [address] (two) Medical times Branch daily with meals. metFORMIN 2020-0 Yes 500mg Take 500 [facility] vers 500 mg 1-29 mg by it[facility] of tablet 20:33: mouth 2 [place] [address] ([facility]) Medical times Branch daily with meals. acetaminoph 2019-0 2020- No 650mg 650 mg, U nivers en -04-08 Oral, ity of (TYLENOL) 20:45: 19:56 ONCE, [...] [place] 00 :00 bedtime. Medical Branch tamsulosin 2019-0 2020- No .4mg Take 0.4 [facility] 0.4 mg 24 1-14 01-14 mg by ity of hr capsule 17:55: 00:00 mouth [place] 00 :00 daily. Medical Branch QUEtiapine 2019-0 2020- No 100mg Take 100 [facility] nivers 100 mg 1-14 01-14 mg by ity of tablet 17:55: 00:00 mouth at [place] 00 :00 bedtime. Medical Branch gabapentin 2020-0 Yes [id number] 400mg Take 1 [facility] 400 mg 1-14 capsule by it[facility] of capsule 00:00: mouth 3 [place] 00 (three) Medical times Branch daily. Pioglitazon 2020-0 Yes [id number] 1{tbl} Take 1 [facility] e-Metformin 1-14 tablet by ity of 15-1,000 mg 00:00: mouth 2 [place] [facility]24 00 (two) Medical times Branch daily with meals. QUEtiapine 2020-0 Yes [id number] 100mg Take 1 [facility] 100 mg 1-14 tablet by it[facility] of tablet 00:00: mouth at [place] 00 bedtime. Medical Branch SERTraline 2020-0 Yes [id number] 100mg Take 1 [facility] 100 mg 1-14 tablet by ity of tablet 00:00: mouth [place] 00 every Medical morning. Branch tamsulosin 2020-0 Yes [id number] .4mg Take 1 [facility] 0.4 mg 24 1-14 capsule by it[facility] of hr capsule 00:00: mouth [place] 00 daily. Medical Branch traZODone 2020-0 Yes [id number] 50mg Take 1 [facility] 50 mg 1-14 tablet by [facility] of tablet 00:00: mouth at [place] 00 bedtime. Medical Branch levETIRAcet 2020-0 Yes [id number] 500mg Take 1 [facility] am 500 mg 1-14 tablet by ity o f tablet 00:00: mouth 2 [place] 00 (two) Medical times Branch daily. atorvastati 2020-0 Yes [id number] 80mg Take 1 [facility] n 80 mg 1-14 tablet by it[facility] of tablet 00:00: mouth at [place] 00 bedtime. Medical Branch blood sugar 2020-0 Yes [id number] Use BID, [facility] diagnostic 1-14 DX E11.9 ity o f (BLOOD 00:00: (Brand [place] GLUCOSE 00 upon Medical TEST) strip insurance [facility] approval) gabapentin 2020-0 Yes [id number] 400mg Take 1 [facility] 400 mg 1-14 capsule by ity of capsule 00:00: mouth 3 [place] 00 (three) Medical times Branch daily. Pioglitazon 2020-0 Yes [id number] 1{tbl} Take 1 [facility] e-Metformin 1-14 tablet by ity of 15-1,000 mg 00:00: mouth 2 [place] [facility]24 00 (two) Medical times Branch daily with meals. QUEtiapine 2020-0 Yes [id number] 100mg Take 1 [facility] 100 mg 1-14 tablet by ity of tablet 00:00: mouth at [place] 00 bedtime. Medical Branch SERTraline 2020-0 Yes [id number] 100mg Take 1 [facility] 100 mg 1-14 tablet by ity of tablet 00:00: mouth [place] 00 every Medical morning. Branch tamsulosin 2020-0 Yes [id number] .4mg Take 1 [facility] 0.4 mg 24 1-14 capsule by ity of hr capsule 00:00: mouth [place] 00 daily. Medical Branch traZODone 2020-0 Yes [id number] 50mg Take 1 [facility] 50 mg 1-14 tablet by [facility] of tablet 00:00: mouth at [place] 00 bedtime. Medical Branch levETIRAcet 2020-0 Yes [id number] 500mg Take 1 [facility] am 500 mg 1-14 tablet by ity o f tablet 00:00: mouth 2 [place] 00 (two) Medical times Branch daily. atorvastati 2020-0 Yes [id number] 80mg Take 1 [facility] n 80 mg 1-14 tablet by it[facility] of tablet 00:00: mouth at [place] 00 bedtime. Medical Branch blood sugar 2020-0 Yes [id number] Use BID, [facility] diagnostic 1-14 DX E11.9 ity o f (BLOOD 00:00: (Brand [place] GLUCOSE 00 upon Medical TEST) strip insurance [facility] approval) gabapentin 2020-0 Yes [id number] 400mg Take 1 [facility] 400 mg 1-14 capsule by ity of capsule 00:00: mouth 3 [place] 00 (three) Medical times Branch daily. Pioglitazon 2020-0 Yes [id number] 1{tbl} Take 1 [facility] e-Metformin 1-14 tablet by ity of 15-1,000 mg 00:00: mouth 2 [place] [facility]24 00 (two) Medical times Branch daily with meals. QUEtiapine 2020-0 Yes [id number] 100mg Take 1 [facility] 100 mg 1-14 tablet by ity of tablet 00:00: mouth at [place] 00 bedtime. Medical Branch SERTraline 2020-0 Yes [id number] 100mg Take 1 [facility] 100 mg 1-14 tablet by ity of tablet 00:00: mouth [place] 00 every Medical morning. Branch tamsulosin 2020-0 Yes [id number] .4mg Take 1 [facility] 0.4 mg 24 1-14 capsule by ity of hr capsule 00:00: mouth [place] 00 daily. Medical Branch traZODone 2020-0 Yes [id number] 50mg Take 1 [facility] 50 mg 1-14 tablet by it[facility] of tablet 00:00: mouth at [place] 00 bedtime. Medical Branch levETIRAcet 2020-0 Yes [id number] 500mg Take 1 [facility] am 500 mg 1-14 tablet by ity o f tablet 00:00: mouth 2 [place] 00 (two) Medical times Branch daily. atorvastati 2020-0 Yes [id number] 80mg Take 1 [facility] n 80 mg 1-14 tablet by ity of tablet 00:00: mouth at [place] 00 bedtime. Medical Branch blood sugar 2020-0 Yes [id number] Use BID, [facility] diagnostic 1-14 DX E11.9 ity o f (BLOOD 00:00: (Brand [place] GLUCOSE 00 upon Medical TEST) strip insurance [facility] approval) gabapentin 2020-0 Yes [id number] 400mg Take 1 [facility] 400 mg 1-14 capsule by ity of capsule 00:00: mouth 3 [place] 00 (three) Medical times Branch daily. Pioglitazon 2020-0 Yes [id number] 1{tbl} Take 1 [facility] e-Metformin 1-14 tablet by ity of 15-1,000 mg 00:00: mouth 2 [place] [facility] 00 (two) Medical times Branch daily with meals. QUEtiapine 2020-0 Yes [id number] 100mg Take 1 [facility] 100 mg 1-14 tablet by ity of tablet 00:00: mouth at [place] 00 bedtime. Medical Branch SERTraline 2020-0 Yes [id number] 100mg Take 1 [facility] 100 mg 1-14 tablet by ity of tablet 00:00: mouth [place] 00 every Medical morning. Branch tamsulosin 2020-0 Yes [id number] .4mg Take 1 [facility] 0.4 mg 24 1-14 capsule by ity of hr capsule 00:00: mouth [place] 00 daily. Medical Branch traZODone 2020-0 Yes [id number] 50mg Take 1 [facility] 50 mg 1-14 tablet by ity of tablet 00:00: mouth at [place] 00 bedtime. Medical Branch levETIRAcet 2020-0 Yes [id number] 500mg Take 1 [facility] am 500 mg 1-14 tablet by ity o f tablet 00:00: mouth 2 [place] 00 (two) Medical times Branch daily. atorvastati 2020-0 Yes [id number] 80mg Take 1 [facility] n 80 mg 1-14 tablet by ity of tablet 00:00: mouth at [place] [address] bedtime. Medical Branch blood sugar 2020-0 Yes [id number] Use BID, [facility] diagnostic 1-14 DX E11.9 ity o f (BLOOD 00:00: (Brand [place] GLUCOSE 00 upon Medical TEST) strip insurance [facility] approval) gabapentin 2020-0 Yes [id number] 400mg Take 1 [facility] 400 mg 1-14 capsule by ity of capsule 00:00: mouth 3 [place] 00 (three) Medical times Branch daily. Pioglitazon 2020-0 Yes [id number] 1{tbl} Take 1 [facility] e-Metformin 1-14 tablet by ity of 15-1,000 mg 00:00: mouth 2 [place] [facility] 00 (two) Medical times Branch daily with meals. QUEtiapine 2020-0 Yes [id number] 100mg Take 1 [facility] 100 mg 1-14 tablet by ity of tablet 00:00: mouth at [place] 00 bedtime. Medical Branch SERTraline 2020-0 Yes [id number] 100mg Take 1 [facility] 100 mg 1-14 tablet by ity of tablet 00:00: mouth [place] 00 every Medical morning. Branch tamsulosin 2020-0 Yes [id number] .4mg Take 1 [facility] 0.4 mg 24 1-14 capsule by ity of hr capsule 00:00: mouth [place] 00 daily. Medical Branch traZODone 2020-0 Yes [id number] 50mg Take 1 [facility] [place] 50 mg 1-14 tablet by ity of tablet 00:00: mouth at [place] 00 bedtime. Medical Branch levETIRAcet 2020-0 Yes [id number] 500mg Take 1 [facility] am 500 mg 1-14 tablet by ity o f tablet 00:00: mouth 2 [place] 00 (two) Medical times Branch daily. atorvastati 2020-0 Yes [id number] 80mg Take 1 [facility] n 80 mg 1-14 tablet by ity of tablet 00:00: mouth at [place] 00 bedtime. Medical Branch blood sugar 2020-0 Yes [id number] Use BID, [facility] diagnostic 1-14 DX E11.9 ity o f (BLOOD 00:00: (Brand [place] GLUCOSE 00 upon Medical TEST) strip insurance [facility] approval) gabapentin 2019-0 Yes [id number] 400mg Take 1 [facility] 400 mg 1-14 capsule by ity of capsule 00:00: mouth 3 [place] 00 (three) Medical times Branch daily. Pioglitazon 2020-0 Yes [id number] 1{tbl} Take 1 [facility] e-Metformin 1-14 tablet by ity of 15-1,000 mg 00:00: mouth 2 [place] [facility] 00 (two) Medical times Branch daily with meals. QUEtiapine 2020-0 Yes [id number] 100mg Take 1 [facility] 100 mg 1-14 tablet by ity of tablet 00:00: mouth at [place] 00 bedtime. Medical Branch SERTraline 2020-0 Yes [id number] 100mg Take 1 [facility] 100 mg 1-14 tablet by ity of tablet 00:00: mouth [place] 00 every Medical morning. Branch tamsulosin 2020-0 Yes [id number] .4mg Take 1 [facility] 0.4 mg 24 1-14 capsule by ity of hr capsule 00:00: mouth [place] 00 daily. Medical Branch traZODone 2020-0 Yes [id number] 50mg Take 1 [facility] [place] 50 mg 1-14 tablet by ity of tablet 00:00: mouth at [place] 00 bedtime. Medical Branch levETIRAcet 2020-0 Yes [id number] 500mg Take 1 [facility] am 500 mg 1-14 tablet by ity o f tablet 00:00: mouth 2 [place] 00 (two) Medical times Branch daily. atorvastati 2020-0 Yes [id number] 80mg Take 1 [facility] n 80 mg 1-14 tablet by ity of tablet 00:00: mouth at [place] 00 bedtime. Medical Branch blood sugar 2020-0 Yes [id number] Use BID, [facility] diagnostic 1-14 DX E11.9 ity o f (BLOOD 00:00: (Brand [place] GLUCOSE 00 upon Medical TEST) strip insurance [facility] approval) gabapentin 2020-0 Yes [id number] 400mg Take 1 [facility] 400 mg 1-14 capsule by ity of capsule 00:00: mouth 3 [place] 00 (three) Medical times Branch daily. Pioglitazon 2020-0 Yes [id number] 1{tbl} Take 1 [facility] e-Metformin 1-14 tablet by ity of 15-1,000 mg 00:00: mouth 2 [place] [facility]24 00 (two) Medical times Branch daily with meals. QUEtiapine 2020-0 Yes [id number] 100mg Take 1 [facility] 100 mg 1-14 tablet by ity of tablet 00:00: mouth at [place] 00 bedtime. Medical Branch SERTraline 2020-0 Yes [id number] 100mg Take 1 [facility] 100 mg 1-14 tablet by ity of tablet 00:00: mouth [place] 00 every Medical morning. Branch tamsulosin 2020-0 Yes [id number] .4mg Take 1 [facility] 0.4 mg 24 1-14 capsule by ity of hr capsule 00:00: mouth [place] 00 daily. Medical Branch traZODone 2020-0 Yes [id number] 50mg Take 1 [facility] 50 mg 1-14 tablet by ity of tablet 00:00: mouth at [place] 00 bedtime. Medical Branch levETIRAcet 2020-0 Yes [id number] 500mg Take 1 [facility] am 500 mg 1-14 tablet by ity o f tablet 00:00: mouth 2 [place] 00 (two) Medical times Branch daily. atorvastati 2020-0 Yes [id number] 80mg Take 1 [facility] n 80 mg 1-14 tablet by ity of tablet 00:00: mouth at [place] 00 bedtime. Medical Branch blood sugar 2020-0 Yes [id number] Use BID, [facility] diagnostic 1-14 DX E11.9 ity o f (BLOOD 00:00: (Brand [place] GLUCOSE 00 upon Medical TEST) strip insurance [facility] approval) gabapentin 2020-0 Yes [id number] 400mg Take 1 [facility] 400 mg 1-14 capsule by ity of capsule 00:00: mouth 3 [place] 00 (three) Medical times Branch daily. Pioglitazon 2020-0 Yes [id number] 1{tbl} Take 1 [facility] e-Metformin 1-14 tablet by ity of 15-1,000 mg 00:00: mouth 2 [place] [facility] 00 (two) Medical times Branch daily with meals. QUEtiapine 2020-0 Yes [id number] 100mg Take 1 [facility] 100 mg 1-14 tablet by ity of tablet 00:00: mouth at [place] 00 bedtime. Medical Branch SERTraline 2020-0 Yes [id number] 100mg Take 1 [facility] 100 mg 1-14 tablet by ity of tablet 00:00: mouth [place] 00 every Medical morning. Branch tamsulosin 2020-0 Yes [id number] .4mg Take 1 [facility] 0.4 mg 24 1-14 capsule by ity of hr capsule 00:00: mouth [place] 00 daily. Medical Branch traZODone 2020-0 Yes [id number] 50mg Take 1 [facility] [place] 50 mg 1-14 tablet by ity of tablet 00:00: mouth at [place] 00 bedtime. Medical Branch levETIRAcet 2020-0 Yes [id number] 500mg Take 1 [facility] am 500 mg 1-14 tablet by ity o f tablet 00:00: mouth 2 [place] 00 (two) Medical times Branch daily. atorvastati 2020-0 Yes [id number] 80mg Take 1 [facility] n 80 mg 1-14 tablet by ity of tablet 00:00: mouth at [place] 00 bedtime. Medical Branch blood sugar 2020-0 Yes [id number] Use BID, [facility] diagnostic 1-14 DX E11.9 ity o f (BLOOD 00:00: (Brand [place] GLUCOSE 00 upon Medical TEST) strip insurance [facility] approval) gabapentin 2020-0 Yes [id number] 400mg Take 1 [facility] 400 mg 1-14 capsule by ity of capsule 00:00: mouth 3 [place] 00 (three) Medical times Branch daily. Pioglitazon 2020-0 Yes [id number] 1{tbl} Take 1 [facility] e-Metformin 1-14 tablet by ity of 15-1,000 mg 00:00: mouth 2 [place] [facility]24 00 (two) Medical times Branch daily with meals. QUEtiapine 2020-0 Yes [id number] 100mg Take 1 [facility] 100 mg 1-14 tablet by ity of tablet 00:00: mouth at [place] 00 bedtime. Medical Branch SERTraline 2020-0 Yes [id number] 100mg Take 1 [facility] 100 mg 1-14 tablet by ity of tablet 00:00: mouth [place] 00 every Medical morning. Branch tamsulosin 2020-0 Yes [id number] .4mg Take 1 [facility] 0.4 mg 24 1-14 capsule by ity of hr capsule 00:00: mouth [place] 00 daily. Medical Branch traZODone 2020-0 Yes [id number] 50mg Take 1 [facility] 50 mg 1-14 tablet by ity of tablet 00:00: mouth at [place] 00 bedtime. Medical Branch levETIRAcet 2020-0 Yes [id number] 500mg Take 1 [facility] am 500 mg 1-14 tablet by ity o f tablet 00:00: mouth 2 [place] 00 (two) Medical times Branch daily. atorvastati 2020-0 Yes [id number] 80mg Take 1 [facility] n 80 mg 1-14 tablet by ity of tablet 00:00: mouth at [place] 00 bedtime. Medical Branch blood sugar 2020-0 Yes [id number] Use BID, [facility] diagnostic 1-14 DX E11.9 ity o f (BLOOD 00:00: (Brand [place] GLUCOSE 00 upon Medical TEST) strip insurance [facility] approval) gabapentin 2020-0 Yes [id number] 400mg Take 1 [facility] 400 mg 1-14 capsule by ity of capsule 00:00: mouth 3 [place] 00 (three) Medical times Branch daily. Pioglitazon 2020-0 Yes [id number] 1{tbl} Take 1 [facility] e-Metformin 1-14 tablet by ity of 15-1,000 mg 00:00: mouth 2 [place] [facility] 00 (two) Medical times Branch daily with meals. QUEtiapine 2020-0 Yes [id number] 100mg Take 1 [facility] 100 mg 1-14 tablet by ity of tablet 00:00: mouth at [place] 00 bedtime. Medical Branch SERTraline 2020-0 Yes [id number] 100mg Take 1 [facility] 100 mg 1-14 tablet by ity of tablet 00:00: mouth [place] 00 every Medical morning. Branch tamsulosin 2020-0 Yes [id number] .4mg Take 1 [facility] 0.4 mg 24 1-14 capsule by ity of hr capsule 00:00: mouth [place] 00 daily. Medical Branch traZODone 2020-0 Yes [id number] 50mg Take 1 [facility] [place] 50 mg 1-14 tablet by ity of tablet 00:00: mouth at [place] 00 bedtime. Medical Branch levETIRAcet 2020-0 Yes [id number] 500mg Take 1 [facility] am 500 mg 1-14 tablet by ity o f tablet 00:00: mouth 2 [place] 00 (two) Medical times Branch daily. atorvastati 2020-0 Yes [id number] 80mg Take 1 [facility] n 80 mg 1-14 tablet by ity of tablet 00:00: mouth at [place] 00 bedtime. Medical Branch blood sugar 2020-0 Yes [id number] Use BID, [facility] diagnostic 1-14 DX E11.9 ity o f (BLOOD 00:00: (Brand [place] GLUCOSE 00 upon Medical TEST) strip insurance [facility] approval) gabapentin 2020-0 Yes [id number] 400mg Take 1 [facility] 400 mg 1-14 capsule by ity of capsule 00:00: mouth 3 [place] 00 (three) Medical times Branch daily. Pioglitazon 2020-0 Yes [id number] 1{tbl} Take 1 [facility] e-Metformin 1-14 tablet by ity of 15-1,000 mg 00:00: mouth 2 [place] [facility] 00 (two) Medical times Branch daily with meals. QUEtiapine 2020-0 Yes [id number] 100mg Take 1 [facility] 100 mg 1-14 tablet by ity of tablet 00:00: mouth at [place] 00 bedtime. Medical Branch SERTraline 2020-0 Yes [id number] 100mg Take 1 [facility] 100 mg 1-14 tablet by ity of tablet 00:00: mouth [place] 00 every Medical morning. Branch tamsulosin 2020-0 Yes [id number] .4mg Take 1 [facility] 0.4 mg 24 1-14 capsule by ity of hr capsule 00:00: mouth [place] 00 daily. Medical Branch traZODone 2020-0 Yes [id number] 50mg Take 1 [facility] [place] 50 mg 1-14 tablet by ity of tablet 00:00: mouth at [place] 00 bedtime. Medical Branch levETIRAcet 2020-0 Yes [id number] 500mg Take 1 [facility] am 500 mg 1-14 tablet by ity o f tablet 00:00: mouth 2 [place] 00 (two) Medical times Branch daily. atorvastati 2020-0 Yes [id number] 80mg Take 1 [facility] n 80 mg 1-14 tablet by ity of tablet 00:00: mouth at [place] 00 bedtime. Medical Branch blood sugar 2020-0 Yes [id number] Use BID, [facility] diagnostic 1-14 DX E11.9 ity o f (BLOOD 00:00: ([facility] GLUCOSE 00 upon Medical TEST) strip insurance [facility] approval) gabapentin 2020-0 Yes [id number] 400mg Take 1 [facility] 400 mg 1-14 capsule by ity of capsule 00:00: mouth 3 [place] 00 (three) Medical times Branch daily. Pioglitazon 2020-0 Yes [id number] 1{tbl} Take 1 [facility] e-Metformin 1-14 tablet by ity of 15-1,000 mg 00:00: mouth 2 [place] [facility]24 00 (two) Medical times Branch daily with meals. QUEtiapine 2020-0 Yes [id number] 100mg Take 1 [facility] 100 mg 1-14 tablet by ity of tablet 00:00: mouth at [place] 00 bedtime. Medical Branch SERTraline 2020-0 Yes [id number] 100mg Take 1 [facility] 100 mg 1-14 tablet by ity of tablet 00:00: mouth [place] 00 every Medical morning. Branch tamsulosin 2020-0 Yes [id number] .4mg Take 1 [facility] 0.4 mg 24 1-14 capsule by ity of hr capsule 00:00: mouth [place] 00 daily. Medical Branch traZODone 2020-0 Yes [id number] 50mg Take 1 [facility] [place] 50 mg 1-14 tablet by ity of tablet 00:00: mouth at [place] 00 bedtime. Medical Branch levETIRAcet 2020-0 Yes [id number] 500mg Take 1 [facility] am 500 mg 1-14 tablet by ity o f tablet 00:00: mouth 2 [place] 00 (two) Medical times Branch daily. atorvastati 2020-0 Yes [id number] 80mg Take 1 [facility] n 80 mg 1-14 tablet by ity of tablet 00:00: mouth at [place] 00 bedtime. Medical Branch blood sugar 2020-0 Yes [id number] Use BID, [facility] diagnostic 1-14 DX E11.9 ity o f (BLOOD 00:00: ([facility] GLUCOSE 00 upon Medical TEST) strip insurance [facility] approval) gabapentin 2020-0 Yes [id number] 400mg Take 1 [facility] 400 mg 1-14 capsule by ity of capsule 00:00: mouth 3 [place] 00 (three) Medical times Branch daily. Pioglitazon 2020-0 Yes [id number] 1{tbl} Take 1 [facility] e-Metformin 1-14 tablet by ity of 15-1,000 mg 00:00: mouth 2 [place] TM24 00 (two) Medical times Branch daily with meals. QUEtiapine 2020-0 Yes [id number] 100mg Take 1 [facility] 100 mg 1-14 tablet by ity of tablet 00:00: mouth at [place] 00 bedtime. Medical Branch SERTraline 2020-0 Yes [id number] 100mg Take 1 [facility] 100 mg 1-14 tablet by ity of tablet 00:00: mouth [place] 00 every Medical morning. Branch tamsulosin 2020-0 Yes [id number] .4mg Take 1 [facility] 0.4 mg 24 1-14 capsule by ity of hr capsule 00:00: mouth [place] 00 daily. Medical Branch traZODone 2020-0 Yes [id number] 50mg Take 1 [facility] [place] 50 mg 1-14 tablet by ity of tablet 00:00: mouth at [place] 00 bedtime. Medical Branch levETIRAcet 2020-0 Yes [id number] 500mg Take 1 [facility] am 500 mg 1-14 tablet by ity o f tablet 00:00: mouth 2 [place] 00 (two) Medical times Branch daily. atorvastati 2020-0 Yes [id number] 80mg Take 1 [facility] n 80 mg 1-14 tablet by ity of tablet 00:00: mouth at [place] 00 bedtime. Medical Branch blood sugar 2020-0 Yes [id number] Use BID, [facility] diagnostic 1-14 DX E11.9 ity o f (BLOOD 00:00: (Brand [place] GLUCOSE 00 upon Medical TEST) strip insurance [facility] approval) gabapentin 2020-0 Yes [id number] 400mg Take 1 [facility] 400 mg 1-14 capsule by ity of capsule 00:00: mouth 3 [place] 00 (three) Medical times Branch daily. Pioglitazon 2020-0 Yes [id number] 1{tbl} Take 1 [facility] e-Metformin 1-14 tablet by ity of 15-1,000 mg 00:00: mouth 2 [place] TM24 00 (two) Medical times Branch daily with meals. QUEtiapine 2020-0 Yes [id number] 100mg Take 1 [facility] 100 mg 1-14 tablet by ity of tablet 00:00: mouth at [place] 00 bedtime. Medical Branch SERTraline 2020-0 Yes [id number] 100mg Take 1 [facility] 100 mg 1-14 tablet by ity of tablet 00:00: mouth [place] 00 every Medical morning. Branch tamsulosin 2020-0 Yes [id number] .4mg Take 1 [facility] 0.4 mg 24 1-14 capsule by ity of hr capsule 00:00: mouth [place] 00 daily. Medical Branch traZODone 2020-0 Yes [id number] 50mg Take 1 [facility] [place] 50 mg 1-14 tablet by ity of tablet 00:00: mouth at [place] 00 bedtime. Medical Branch levETIRAcet 2020-0 Yes [id number] 500mg Take 1 [facility] am 500 mg 1-14 tablet by ity o f tablet 00:00: mouth 2 [place] 00 (two) Medical times Branch daily. atorvastati 2020-0 Yes [id number] 80mg Take 1 [facility] n 80 mg 1-14 tablet by [facility] tablet 00:00: mouth at [place] 00 bedtime. Medical Branch blood sugar 2020-0 Yes [id number] Use BID, [facility] diagnostic 1-14 DX E11.9 [facility] o f (BLOOD 00:00: (Brand [place] GLUCOSE 00 upon Medical TEST) strip insurance [facility] approval) gabapentin 2020-0 Yes [id number] 400mg Take 1 [facility] 400 mg 1-14 capsule by [facility] of capsule 00:00: mouth 3 [place] 00 (three) Medical times Branch daily. Pioglitazon 2020-0 Yes [id number] 1{tbl} Take 1 [facility] e-Metformin 1-14 tablet by ity of 15-1,000 mg 00:00: mouth 2 [place] TM24 00 (two) Medical times Branch daily with meals. QUEtiapine 2020-0 Yes [id number] 100mg Take 1 [facility] 100 mg 1-14 tablet by [facility] of tablet 00:00: mouth at [place] 00 bedtime. Medical Branch SERTraline 2020-0 Yes [id number] 100mg Take 1 [facility] 100 mg 1-14 tablet by [facility] of tablet 00:00: mouth [place] 00 every Medical morning. Branch tamsulosin 2020-0 Yes [id number] .4mg Take 1 [facility] 0.4 mg 24 1-14 capsule by [facility] of hr capsule 00:00: mouth [place] 00 daily. Medical Branch traZODone 2020-0 Yes [id number] 50mg Take 1 [facility] 50 mg 1-14 tablet by [facility] tablet 00:00: mouth at [place] 00 bedtime. Medical [facility] levETIRAcet 2020-0 Yes [id number] 500mg Take 1 [facility] am 500 mg 1-14 tablet by [facility] o f tablet 00:00: mouth 2 [place] 00 (two) Medical times Branch daily. atorvastati 2020-0 Yes [id number] 80mg Take 1 [facility] n 80 mg 1-14 tablet by [facility] of tablet 00:00: mouth at [place] 00 bedtime. Medical Branch blood sugar 2020-0 Yes [id number] Use BID, [facility] diagnostic 1-14 DX E11.9 [facility] o f (BLOOD 00:00: (Brand [place] GLUCOSE 00 upon Medical TEST) strip insurance [facility] approval) gabapentin 2020-0 Yes [id number] 400mg Take 1 [facility] 400 mg 1-14 capsule by [facility] of capsule 00:00: mouth 3 [place] (three) Medical times Branch daily. Pioglitazon 2020-0 Yes [id number] 1{tbl} Take 1 [facility] e-Metformin 1-14 tablet by [facility] of 15-1,000 mg 00:00: mouth 2 [place] [facility] 00 (two) Medical times Branch daily with meals. QUEtiapine 2020-0 Yes [id number] 100mg Take 1 [facility] 100 mg 1-14 tablet by [facility] of tablet 00:00: mouth at [place] 00 bedtime. Medical Branch SERTraline 2020-0 Yes [id number] 100mg Take 1 [facility] 100 mg 1-14 tablet by [facility] of tablet 00:00: mouth [place] 00 every Medical morning. Branch tamsulosin 2020-0 Yes [id number] .4mg Take 1 [facility] 0.4 mg 24 1-14 capsule by [facility] of hr capsule 00:00: mouth [place] 00 daily. Medical Branch traZODone 2020-0 Yes [id number] 50mg Take 1 [facility] 50 mg 1-14 tablet by [facility] tablet 00:00: mouth at [place] 00 bedtime. Medical [facility] levETIRAcet 2020-0 Yes [id number] 500mg Take 1 [facility] am 500 mg 1-14 tablet by [facility] o f tablet 00:00: mouth 2 [place] 00 (two) Medical times Branch daily. atorvastati 2020-0 Yes [id number] 80mg Take 1 [facility] n 80 mg 1-14 tablet by [facility] of tablet 00:00: mouth at [place] 00 bedtime. Medical Branch blood sugar 2020-0 Yes [id number] Use BID, [facility] diagnostic 1-14 DX E11.9 [facility] o f (BLOOD 00:00: (Brand [place] GLUCOSE 00 upon Medical TEST) strip insurance [facility] approval) gabapentin 2020-0 Yes [id number] 400mg Take 1 [facility] 400 mg 1-14 capsule by [facility] of capsule 00:00: mouth 3 [place] 00 (three) Medical times Branch daily. Pioglitazon 2020-0 Yes [id number] 1{tbl} Take 1 [facility] e-Metformin 1-14 tablet by [facility] of 15-1,000 mg 00:00: mouth 2 [place] [facility] 00 (two) Medical times Branch daily with meals. QUEtiapine 2020-0 Yes [id number] 100mg Take 1 [facility] 100 mg 1-14 tablet by [facility] of tablet 00:00: mouth at [place] 00 bedtime. Medical Branch SERTraline 2020-0 Yes [id number] 100mg Take 1 [facility] 100 mg 1-14 tablet by [facility] of tablet 00:00: mouth [place] 00 every Medical morning. Branch tamsulosin 2020-0 Yes [id number] .4mg Take 1 [facility] 0.4 mg 24 1-14 capsule by [facility] of hr capsule 00:00: mouth [place] 00 daily. Medical Branch traZODone 2020-0 Yes [id number] 50mg Take 1 [facility] 50 mg 1-14 tablet by [facility] tablet 00:00: mouth at [place] 00 bedtime. Medical Branch levETIRAcet 2020-0 Yes [id number] 500mg Take 1 [facility] am 500 mg 1-14 tablet by [facility] o f tablet 00:00: mouth 2 [place] 00 (two) Medical times Branch daily. atorvastati 2020-0 Yes [id number] 80mg Take 1 [facility] n 80 mg 1-14 tablet by [facility] of tablet 00:00: mouth at [place] 00 bedtime. Medical Branch blood sugar 2020-0 Yes [id number] Use BID, [facility] diagnostic 1-14 DX E11.9 it[facility] o f (BLOOD 00:00: (Brand [place] GLUCOSE 00 upon Medical TEST) strip insurance [facility] approval) gabapentin 2020-0 Yes [id number] 400mg Take 1 [facility] 400 mg 1-14 capsule by [facility] of capsule 00:00: mouth 3 00 (three) Medical times Branch daily. QUEtiapine 2020-0 Yes [id number] 100mg Take 1 [facility] 100 mg 1-14 tablet by [facility] of tablet 00:00: mouth at [place] 00 bedtime. Medical Branch SERTraline 2020-0 Yes [id number] 100mg Take 1 [facility] 100 mg 1-14 tablet by [facility] of tablet 00:00: mouth [place] 00 every Medical morning. Branch tamsulosin 2020-0 Yes [id number] .4mg Take 1 [facility] 0.4 mg 24 1-14 capsule by [facility] of hr capsule 00:00: mouth [place] 00 daily. Medical Branch traZODone 2020-0 Yes [id number] 50mg Take 1 [facility] [place] 50 mg 1-14 tablet by [facility] tablet 00:00: mouth at [place] 00 bedtime. Medical Branch levETIRAcet 2020-0 Yes [id number] 500mg Take 1 [facility] am 500 mg 1-14 tablet by it[facility] o f tablet 00:00: mouth 2 [place] (two) Medical times Branch daily. atorvastati 2020-0 Yes [id number] 80mg Take 1 [facility] n 80 mg 1-14 tablet by [facility] of tablet 00:00: mouth at [place] 00 bedtime. Medical Branch blood sugar 2020-0 Yes [id number] Use BID, [facility] diagnostic 1-14 DX E11.9 [facility] o f (BLOOD 00:00: (Brand [place] GLUCOSE 00 upon Medical TEST) strip insurance [facility] approval) gabapentin 2020-0 Yes [id number] 400mg Take 1 [facility] 400 mg 1-14 capsule by [facility] of capsule 00:00: mouth 3 [place] 00 (three) Medical times Branch daily. QUEtiapine 2020-0 Yes [id number] 100mg Take 1 [facility] 100 mg 1-14 tablet by [facility] of tablet 00:00: mouth at [place] 00 bedtime. Medical Branch SERTraline 2020-0 Yes [id number] 100mg Take 1 [facility] 100 mg 1-14 tablet by [facility] of tablet 00:00: mouth [place] 00 every Medical morning. Branch tamsulosin 2020-0 Yes [id number] .4mg Take 1 [facility] 0.4 mg 24 1-14 capsule by [facility] of hr capsule 00:00: mouth [place] 00 daily. Medical Branch traZODone 2020-0 Yes [id number] 50mg Take 1 [facility] 50 mg 1-14 tablet by [facility] of tablet 00:00: mouth at [place] 00 bedtime. Medical Branch levETIRAcet 2020-0 Yes [id number] 500mg Take 1 [facility] am 500 mg 1-14 tablet by it[facility] o f tablet 00:00: mouth 2 00 (two) Medical times Branch daily. atorvastati 2020-0 Yes [id number] 80mg Take 1 [facility] n 80 mg 1-14 tablet by [facility] of tablet 00:00: mouth at [place] 00 bedtime. Medical Branch blood sugar 2020-0 Yes [id number] Use BID, [facility] diagnostic 1-14 DX E11.9 it[facility] o f (BLOOD 00:00: (Brand [place] GLUCOSE 00 upon Medical TEST) strip insurance [facility] approval) gabapentin 2020-0 Yes [id number] 400mg Take 1 [facility] 400 mg 1-14 capsule by it[facility] of capsule 00:00: mouth 3 (three) Medical times Branch daily. QUEtiapine 2020-0 Yes [id number] 100mg Take 1 [facility] 100 mg 1-14 tablet by it[facility] of tablet 00:00: mouth at [place] 00 bedtime. Medical Branch SERTraline 2020-0 Yes [id number] 100mg Take 1 [facility] 100 mg 1-14 tablet by [facility] of tablet 00:00: mouth [place] 00 every Medical morning. Branch tamsulosin 2020-0 Yes [id number] .4mg Take 1 [facility] 0.4 mg 24 1-14 capsule by [facility] of hr capsule 00:00: mouth [place] 00 daily. Medical Branch traZODone 2020-0 Yes [id number] 50mg Take 1 [facility] 50 mg 1-14 tablet by [facility] of tablet 00:00: mouth at [place] 00 bedtime. Medical Branch levETIRAcet 2020-0 Yes [id number] 500mg Take 1 [facility] am 500 mg 1-14 tablet by it[facility] o f tablet 00:00: mouth 2 00 (two) Medical times Branch daily. atorvastati 2020-0 Yes [id number] 80mg Take 1 [facility] n 80 mg 1-14 tablet by [facility] of tablet 00:00: mouth at [place] 00 bedtime. Medical Branch blood sugar 2020-0 Yes [id number] Use BID, [facility] diagnostic 1-14 DX E11.9 it[facility] o f (BLOOD 00:00: (Brand [place] GLUCOSE 00 upon Medical TEST) strip insurance [facility] approval) gabapentin 2020-0 Yes [id number] 400mg Take 1 [facility] 400 mg 1-14 capsule by [facility] of capsule 00:00: mouth 3 (three) Medical times Branch daily. QUEtiapine 2020-0 Yes [id number] 100mg Take 1 [facility] 100 mg 1-14 tablet by it[facility] of tablet 00:00: mouth at [place] 00 bedtime. Medical Branch SERTraline 2020-0 Yes [id number] 100mg Take 1 [facility] 100 mg 1-14 tablet by it[facility] of tablet 00:00: mouth [place] 00 every Medical morning. Branch tamsulosin 2020-0 Yes [id number] .4mg Take 1 [facility] 0.4 mg 24 1-14 capsule by ity of hr capsule 00:00: mouth 00 daily. Medical Branch traZODone 2020-0 Yes [id number] 50mg Take 1 [facility] 50 mg 1-14 tablet by [facility] of tablet 00:00: mouth at [place] 00 bedtime. Medical Branch levETIRAcet 2020-0 Yes [id number] 500mg Take 1 [facility] am 500 mg 1-14 tablet by ity o f tablet 00:00: mouth 2 (two) Medical times Branch daily. atorvastati 2020-0 Yes [id number] 80mg Take 1 [facility] n 80 mg 1-14 tablet by it[facility] of tablet 00:00: mouth at [place] 00 bedtime. Medical Branch blood sugar 2020-0 Yes [id number] Use BID, [facility] diagnostic 1-14 DX E11.9 it[facility] o f (BLOOD 00:00: ([facility] GLUCOSE 00 upon Medical TEST) strip insurance [facility] approval) gabapentin 2020-0 Yes [id number] 400mg Take 1 [facility] 400 mg 1-14 capsule by ity of capsule 00:00: mouth 3 (three) Medical times Branch daily. QUEtiapine 2020-0 Yes [id number] 100mg Take 1 [facility] 100 mg 1-14 tablet by ity of tablet 00:00: mouth at [place] 00 bedtime. Medical Branch SERTraline 2020-0 Yes [id number] 100mg Take 1 [facility] 100 mg 1-14 tablet by ity of tablet 00:00: mouth [place] 00 every Medical morning. Branch tamsulosin 2020-0 Yes [id number] .4mg Take 1 [facility] 0.4 mg 24 1-14 capsule by ity of hr capsule 00:00: mouth [place] 00 daily. Medical Branch traZODone 2020-0 Yes [id number] 50mg Take 1 [facility] 50 mg 1-14 tablet by [facility] of tablet 00:00: mouth at [place] 00 bedtime. Medical Branch levETIRAcet 2020-0 Yes [id number] 500mg Take 1 [facility] am 500 mg 1-14 tablet by ity o f tablet 00:00: mouth 2 [place] (two) Medical times Branch daily. atorvastati 2020-0 Yes [id number] 80mg Take 1 [facility] n 80 mg 1-14 tablet by ity of tablet 00:00: mouth at [place] 00 bedtime. Medical Branch blood sugar 2020-0 Yes [id number] Use BID, [facility] diagnostic 1-14 DX E11.9 ity o f (BLOOD 00:00: (Brand [place] GLUCOSE 00 upon Medical TEST) strip insurance [facility] approval) gabapentin 2020-0 Yes [id number] 400mg Take 1 [facility] 400 mg 1-14 capsule by ity of capsule 00:00: mouth 3 [place] (three) Medical times Branch daily. QUEtiapine 2020-0 Yes [id number] 100mg Take 1 [facility] 100 mg 1-14 tablet by ity of tablet 00:00: mouth at [place] 00 bedtime. Medical Branch SERTraline 2020-0 Yes [id number] 100mg Take 1 [facility] 100 mg 1-14 tablet by ity of tablet 00:00: mouth [place] 00 every Medical morning. Branch tamsulosin 2020-0 Yes [id number] .4mg Take 1 [facility] 0.4 mg 24 1-14 capsule by ity of hr capsule 00:00: mouth [place] 00 daily. Medical Branch traZODone 2020-0 Yes [id number] 50mg Take 1 [facility] 50 mg 1-14 tablet by ity of tablet 00:00: mouth at [place] 00 bedtime. Medical Branch levETIRAcet 2020-0 Yes [id number] 500mg Take 1 [facility] am 500 mg 1-14 tablet by ity o f tablet 00:00: mouth 2 [place] (two) Medical times Branch daily. atorvastati 2020-0 Yes [id number] 80mg Take 1 [facility] n 80 mg 1-14 tablet by ity of tablet 00:00: mouth at [place] 00 bedtime. Medical Branch blood sugar 2020-0 Yes [id number] Use BID, [facility] diagnostic 1-14 DX E11.9 ity o f (BLOOD 00:00: (Brand [place] GLUCOSE 00 upon Medical TEST) strip insurance [facility] approval) gabapentin 2020-0 Yes [id number] 400mg Take 1 [facility] 400 mg 1-14 capsule by ity of capsule 00:00: mouth 3 00 (three) Medical times Branch daily. QUEtiapine 2020-0 Yes [id number] 100mg Take 1 [facility] 100 mg 1-14 tablet by ity of tablet 00:00: mouth at [place] 00 bedtime. Medical Branch SERTraline 2020-0 Yes [id number] 100mg Take 1 [facility] 100 mg 1-14 tablet by ity of tablet 00:00: mouth [place] 00 every Medical morning. Branch tamsulosin 2020-0 Yes [id number] .4mg Take 1 [facility] 0.4 mg 24 1-14 capsule by ity of hr capsule 00:00: mouth [place] 00 daily. Medical Branch traZODone 2020-0 Yes [id number] 50mg Take 1 [facility] 50 mg 1-14 tablet by ity of tablet 00:00: mouth at [place] 00 bedtime. Medical Branch levETIRAcet 2020-0 Yes [id number] 500mg Take 1 [facility] am 500 mg 1-14 tablet by ity o f tablet 00:00: mouth 2 (two) Medical times Branch daily. atorvastati 2020-0 Yes [id number] 80mg Take 1 [facility] n 80 mg 1-14 tablet by ity of tablet 00:00: mouth at [place] 00 bedtime. Medical Branch blood sugar 2020-0 Yes [id number] Use BID, [facility] diagnostic 1-14 DX E11.9 ity o f (BLOOD 00:00: (Brand [place] GLUCOSE 00 upon Medical TEST) strip insurance [facility] approval) gabapentin 2020-0 Yes [id number] 400mg Take 1 [facility] 400 mg 1-14 capsule by ity of capsule 00:00: mouth 3 (three) Medical times Branch daily. QUEtiapine 2020-0 Yes [id number] 100mg Take 1 [facility] 100 mg 1-14 tablet by ity of tablet 00:00: mouth at [place] 00 bedtime. Medical Branch SERTraline 2020-0 Yes [id number] 100mg Take 1 [facility] 100 mg 1-14 tablet by ity of tablet 00:00: mouth [place] 00 every Medical morning. Branch tamsulosin 2020-0 Yes [id number] .4mg Take 1 [facility] 0.4 mg 24 1-14 capsule by ity of hr capsule 00:00: mouth 00 daily. Medical Branch traZODone 2020-0 Yes [id number] 50mg Take 1 [facility] 50 mg 1-14 tablet by ity of tablet 00:00: mouth at [place] [address] bedtime. Medical Branch levETIRAcet 2020-0 Yes [id number] 500mg Take 1 [facility] am 500 mg 1-14 tablet by ity o f tablet 00:00: mouth 2 [place] (two) Medical times Branch daily. atorvastati 2020-0 Yes [id number] 80mg Take 1 [facility] n 80 mg 1-14 tablet by ity of tablet 00:00: mouth at [place] [address] bedtime. Medical Branch blood sugar 2020-0 Yes [id number] Use BID, [facility] diagnostic 1-14 DX E11.9 ity o f (BLOOD 00:00: (Brand [place] GLUCOSE 00 upon Medical TEST) strip insurance [facility] approval) gabapentin 2020-0 Yes [id number] 400mg Take 1 [facility] 400 mg 1-14 capsule by ity of capsule 00:00: mouth 3 [place] (three) Medical times Branch daily. QUEtiapine 2020-0 Yes [id number] 100mg Take 1 [facility] 100 mg 1-14 tablet by ity of tablet 00:00: mouth at [place] [address] bedtime. Medical Branch SERTraline 2020-0 Yes [id number] 100mg Take 1 [facility] 100 mg 1-14 tablet by ity of tablet 00:00: mouth [place] 00 every Medical morning. Branch tamsulosin 2020-0 Yes [id number] .4mg Take 1 [facility] 0.4 mg 24 1-14 capsule by ity of hr capsule 00:00: mouth daily. Medical Branch traZODone 2020-0 Yes [id number] 50mg Take 1 [facility] 50 mg 1-14 tablet by ity of tablet 00:00: mouth at [place] 00 bedtime. Medical Branch levETIRAcet 2020-0 Yes [id number] 500mg Take 1 [facility] am 500 mg 1-14 tablet by ity o f tablet 00:00: mouth 2 [place] (two) Medical times Branch daily. atorvastati 2020-0 Yes [id number] 80mg Take 1 [facility] n 80 mg 1-14 tablet by ity of tablet 00:00: mouth at [place] 00 bedtime. Medical Branch blood sugar 2020-0 Yes [id number] Use BID, [facility] diagnostic 1-14 DX E11.9 ity o f (BLOOD 00:00: (Brand [place] GLUCOSE 00 upon Medical TEST) strip insurance [facility] approval) gabapentin 2020-0 Yes [id number] 400mg Take 1 [facility] 400 mg 1-14 capsule by ity of capsule 00:00: mouth 3 (three) Medical times Branch daily. QUEtiapine 2020-0 Yes [id number] 100mg Take 1 [facility] 100 mg 1-14 tablet by ity of tablet 00:00: mouth at [place] 00 bedtime. Medical Branch SERTraline 2020-0 Yes [id number] 100mg Take 1 [facility] 100 mg 1-14 tablet by ity of tablet 00:00: mouth [place] 00 every Medical morning. Branch tamsulosin 2020-0 Yes [id number] .4mg Take 1 [facility] 0.4 mg 24 1-14 capsule by ity of hr capsule 00:00: mouth 00 daily. Medical Branch traZODone 2020-0 Yes [id number] 50mg Take 1 [facility] 50 mg 1-14 tablet by ity of tablet 00:00: mouth at [place] bedtime. Medical Branch levETIRAcet 2020-0 Yes [id number] 500mg Take 1 [facility] am 500 mg 1-14 tablet by ity o f tablet 00:00: mouth 2 (two) Medical times Branch daily. atorvastati 2020-0 Yes [id number] 80mg Take 1 [facility] n 80 mg 1-14 tablet by ity of tablet 00:00: mouth at [place] 00 bedtime. Medical Branch blood sugar 2020-0 Yes [id number] Use BID, [facility] diagnostic 1-14 DX E11.9 ity o f (BLOOD 00:00: (Brand [place] GLUCOSE 00 upon Medical TEST) strip insurance [facility] approval) gabapentin 2020-0 Yes [id number] 400mg Take 1 [facility] 400 mg 1-14 capsule by ity of capsule 00:00: mouth 3 (three) Medical times Branch daily. QUEtiapine 2020-0 Yes [id number] 100mg Take 1 [facility] 100 mg 1-14 tablet by ity of tablet 00:00: mouth at [place] 00 bedtime. Medical Branch SERTraline 2020-0 Yes [id number] 100mg Take 1 [facility] 100 mg 1-14 tablet by ity of tablet 00:00: mouth [place] 00 every Medical morning. Branch tamsulosin 2020-0 Yes [id number] .4mg Take 1 [facility] 0.4 mg 24 1-14 capsule by ity of hr capsule 00:00: mouth [place] 00 daily. Medical Branch traZODone 2020-0 Yes [id number] 50mg Take 1 [facility] 50 mg 1-14 tablet by ity of tablet 00:00: mouth at [place] 00 bedtime. Medical Branch levETIRAcet 2020-0 Yes [id number] 500mg Take 1 [facility] am 500 mg 1-14 tablet by ity o f tablet 00:00: mouth 2 [place] (two) Medical times Branch daily. atorvastati 2020-0 Yes [id number] 80mg Take 1 [facility] n 80 mg 1-14 tablet by ity of tablet 00:00: mouth at [place] 00 bedtime. Medical Branch blood sugar 2020-0 Yes [id number] Use BID, [facility] diagnostic 1-14 DX E11.9 ity o f (BLOOD 00:00: (Brand [place] GLUCOSE 00 upon Medical TEST) strip insurance [facility] approval) gabapentin 2020-0 Yes [id number] 400mg Take 1 [facility] 400 mg 1-14 capsule by ity of capsule 00:00: mouth 3 [place] (three) Medical times Branch daily. QUEtiapine 2020-0 Yes [id number] 100mg Take 1 [facility] 100 mg 1-14 tablet by ity of tablet 00:00: mouth at [place] 00 bedtime. Medical Branch SERTraline 2020-0 Yes [id number] 100mg Take 1 [facility] 100 mg 1-14 tablet by ity of tablet 00:00: mouth [place] 00 every Medical morning. Branch tamsulosin 2020-0 Yes [id number] .4mg Take 1 [facility] 0.4 mg 24 1-14 capsule by ity of hr capsule 00:00: mouth [place] 00 daily. Medical Branch traZODone 2020-0 Yes [id number] 50mg Take 1 [facility] [place] 50 mg 1-14 tablet by ity of tablet 00:00: mouth at [place] 00 bedtime. Medical Branch levETIRAcet 2020-0 Yes [id number] 500mg Take 1 [facility] am 500 mg 1-14 tablet by ity o f tablet 00:00: mouth 2 [place] (two) Medical times Branch daily. atorvastati 2020-0 Yes [id number] 80mg Take 1 [facility] n 80 mg 1-14 tablet by ity of tablet 00:00: mouth at [place] 00 bedtime. Medical Branch blood sugar 2020-0 Yes [id number] Use BID, [facility] diagnostic 1-14 DX E11.9 ity o f (BLOOD 00:00: (Brand [place] GLUCOSE 00 upon Medical TEST) strip insurance [facility] approval) gabapentin 2020-0 Yes [id number] 400mg Take 1 [facility] 400 mg 1-14 capsule by ity of capsule 00:00: mouth 3 (three) Medical times Branch daily. QUEtiapine 2020-0 Yes [id number] 100mg Take 1 [facility] 100 mg 1-14 tablet by ity of tablet 00:00: mouth at [place] 00 bedtime. Medical Branch SERTraline 2020-0 Yes [id number] 100mg Take 1 [facility] 100 mg 1-14 tablet by ity of tablet 00:00: mouth [place] 00 every Medical morning. Branch tamsulosin 2020-0 Yes [id number] .4mg Take 1 [facility] 0.4 mg 24 1-14 capsule by ity of hr capsule 00:00: mouth daily. Medical Branch traZODone 2020-0 Yes [id number] 50mg Take 1 [facility] 50 mg 1-14 tablet by ity of tablet 00:00: mouth at [place] 00 bedtime. Medical Branch levETIRAcet 2020-0 Yes [id number] 500mg Take 1 [facility] am 500 mg 1-14 tablet by ity o f tablet 00:00: mouth 2 (two) Medical times Branch daily. atorvastati 2020-0 Yes [id number] 80mg Take 1 [facility] n 80 mg 1-14 tablet by ity of tablet 00:00: mouth at [place] 00 bedtime. Medical Branch blood sugar 2020-0 Yes [id number] Use BID, [facility] diagnostic 1-14 DX E11.9 ity o f (BLOOD 00:00: (Brand [place] GLUCOSE 00 upon Medical TEST) strip insurance [facility] approval) gabapentin 2020-0 Yes [id number] 400mg Take 1 [facility] 400 mg 1-14 capsule by ity of capsule 00:00: mouth 3 (three) Medical times Branch daily. QUEtiapine 2020-0 Yes [id number] 100mg Take 1 [facility] 100 mg 1-14 tablet by ity of tablet 00:00: mouth at [place] 00 bedtime. Medical Branch SERTraline 2020-0 Yes [id number] 100mg Take 1 [facility] 100 mg 1-14 tablet by ity of tablet 00:00: mouth [place] 00 every Medical morning. Branch tamsulosin 2020-0 Yes [id number] .4mg Take 1 [facility] 0.4 mg 24 1-14 capsule by ity of hr capsule 00:00: mouth [place] 00 daily. Medical Branch traZODone 2020-0 Yes [id number] 50mg Take 1 [facility] 50 mg 1-14 tablet by ity of tablet 00:00: mouth at [place] 00 bedtime. Medical Branch levETIRAcet 2020-0 Yes [id number] 500mg Take 1 [facility] am 500 mg 1-14 tablet by ity o f tablet 00:00: mouth 2 [place] (two) Medical times Branch daily. atorvastati 2020-0 Yes [id number] 80mg Take 1 [facility] n 80 mg 1-14 tablet by ity of tablet 00:00: mouth at [place] 00 bedtime. Medical Branch blood sugar 2020-0 Yes [id number] Use BID, [facility] diagnostic 1-14 DX E11.9 ity o f (BLOOD 00:00: (Brand [place] GLUCOSE 00 upon Medical TEST) strip insurance [facility] approval) gabapentin 2020-0 Yes [id number] 400mg Take 1 [facility] 400 mg 1-14 capsule by ity of capsule 00:00: mouth 3 (three) Medical times Branch daily. QUEtiapine 2020-0 Yes [id number] 100mg Take 1 [facility] 100 mg 1-14 tablet by ity of tablet 00:00: mouth at [place] 00 bedtime. Medical Branch SERTraline 2020-0 Yes [id number] 100mg Take 1 [facility] 100 mg 1-14 tablet by ity of tablet 00:00: mouth [place] 00 every Medical morning. Branch tamsulosin 2020-0 Yes [id number] .4mg Take 1 [facility] 0.4 mg 24 1-14 capsule by ity of hr capsule 00:00: mouth [place] 00 daily. Medical Branch traZODone 2020-0 Yes [id number] 50mg Take 1 [facility] 50 mg 1-14 tablet by ity of tablet 00:00: mouth at [place] 00 bedtime. Medical Branch levETIRAcet 2020-0 Yes [id number] 500mg Take 1 [facility] am 500 mg 1-14 tablet by ity o f tablet 00:00: mouth 2 [place] 00 (two) Medical times Branch daily. atorvastati 2020-0 Yes [id number] 80mg Take 1 [facility] n 80 mg 1-14 tablet by ity of tablet 00:00: mouth at [place] 00 bedtime. Medical Branch blood sugar 2020-0 Yes [id number] Use BID, [facility] diagnostic 1-14 DX E11.9 ity o f (BLOOD 00:00: (Brand [place] GLUCOSE 00 upon Medical TEST) strip insurance [facility] approval) gabapentin 2020-0 Yes [id number] 400mg Take 1 [facility] 400 mg 1-14 capsule by ity of capsule 00:00: mouth 3 (three) Medical times Branch daily. QUEtiapine 2020-0 Yes [id number] 100mg Take 1 [facility] 100 mg 1-14 tablet by ity of tablet 00:00: mouth at [place] 00 bedtime. Medical Branch SERTraline 2020-0 Yes [id number] 100mg Take 1 [facility] 100 mg 1-14 tablet by ity of tablet 00:00: mouth [place] 00 every Medical morning. Branch tamsulosin 2020-0 Yes [id number] .4mg Take 1 [facility] 0.4 mg 24 1-14 capsule by ity of hr capsule 00:00: mouth [place] 00 daily. Medical Branch traZODone 2020-0 Yes [id number] 50mg Take 1 [facility] 50 mg 1-14 tablet by ity of tablet 00:00: mouth at [place] 00 bedtime. Medical Branch levETIRAcet 2020-0 Yes [id number] 500mg Take 1 [facility] am 500 mg 1-14 tablet by ity o f tablet 00:00: mouth 2 (two) Medical times Branch daily. atorvastati 2020-0 Yes [id number] 80mg Take 1 [facility] n 80 mg 1-14 tablet by ity of tablet 00:00: mouth at [place] 00 bedtime. Medical Branch blood sugar 2020-0 Yes [id number] Use BID, [facility] diagnostic 1-14 DX E11.9 ity o f (BLOOD 00:00: (Brand [place] GLUCOSE 00 upon Medical TEST) strip insurance [facility] approval) gabapentin 2020-0 Yes [id number] 400mg Take 1 [facility] 400 mg 1-14 capsule by ity of capsule 00:00: mouth 3 (three) Medical times Branch daily. QUEtiapine 2020-0 Yes [id number] 100mg Take 1 [facility] 100 mg 1-14 tablet by ity of tablet 00:00: mouth at [place] [address] bedtime. Medical Branch SERTraline 2020-0 Yes [id number] 100mg Take 1 [facility] 100 mg 1-14 tablet by ity of tablet 00:00: mouth [place] 00 every Medical morning. Branch tamsulosin 2020-0 Yes [id number] .4mg Take 1 [facility] 0.4 mg 24 1-14 capsule by [facility] hr capsule 00:00: mouth [place] 00 daily. [facility] traZODone 2020-0 Yes [id number] 50mg Take 1 [facility] 50 mg 1-14 tablet by [facility] tablet 00:00: mouth at [place] [address] bedtime. Medical Branch levETIRAcet 2020-0 Yes [id number] 500mg Take 1 [facility] am 500 mg 1-14 tablet by [facility] o f tablet 00:00: mouth 2 (two) Medical times Branch daily. atorvastati 2020-0 Yes [id number] 80mg Take 1 [facility] n 80 mg 1-14 tablet by [facility] of tablet 00:00: mouth at [place] [address] bedtime. [facility] blood sugar 2020-0 Yes [id number] Use BID, [facility] diagnostic 1-14 DX E11.9 [facility] o f (BLOOD 00:00: (Brand [place] GLUCOSE 00 upon Medical TEST) strip insurance [facility] approval) gabapentin 2020-0 Yes [id number] 400mg Take 1 [facility] 400 mg 1-14 capsule by [facility] of capsule 00:00: mouth 3 (three) Medical times Branch daily. QUEtiapine 2020-0 Yes [id number] 100mg Take 1 [facility] 100 mg 1-14 tablet by [facility] of tablet 00:00: mouth at [place] [address] bedtime. Medical [facility] SERTraline 2020-0 Yes [id number] 100mg Take 1 [facility] 100 mg 1-14 tablet by [facility] of tablet 00:00: mouth [place] 00 every Medical morning. Branch tamsulosin 2020-0 Yes [id number] .4mg Take 1 [facility] 0.4 mg 24 1-14 capsule by [facility] hr capsule 00:00: mouth [place] 00 daily. [facility] traZODone 2020-0 Yes [id number] 50mg Take 1 [facility] 50 mg 1-14 tablet by [facility] tablet 00:00: mouth at [place] [address] bedtime. [facility] levETIRAcet 2020-0 Yes [id number] 500mg Take 1 [facility] am 500 mg 1-14 tablet by [facility] o f tablet 00:00: mouth 2 00 (two) Medical times Branch daily. atorvastati 2020-0 Yes [id number] 80mg Take 1 [facility] n 80 mg 1-14 tablet by [facility] of tablet 00:00: mouth at [place] 00 bedtime. [facility] blood sugar 2020-0 Yes [id number] Use BID, [facility] diagnostic 1-14 DX E11.9 [facility] o f (BLOOD 00:00: (Brand [place] GLUCOSE 00 upon Medical TEST) strip insurance [facility] approval) gabapentin 2020-0 Yes [id number] 400mg Take 1 [facility] 400 mg 1-14 capsule by [facility] of capsule 00:00: mouth 3 (three) Medical times Branch daily. QUEtiapine 2020-0 Yes [id number] 100mg Take 1 [facility] 100 mg 1-14 tablet by [facility] of tablet 00:00: mouth at [place] 00 bedtime. [facility] SERTraline 2020-0 Yes [id number] 100mg Take 1 [facility] 100 mg 1-14 tablet by [facility] of tablet 00:00: mouth [place] 00 every Medical morning. Branch tamsulosin 2020-0 Yes [id number] .4mg Take 1 [facility] 0.4 mg 24 1-14 capsule by [facility] hr capsule 00:00: mouth [place] 00 daily. [facility] traZODone 2020-0 Yes [id number] 50mg Take 1 [facility] 50 mg 1-14 tablet by [facility] tablet 00:00: mouth at [place] 00 bedtime. [facility] levETIRAcet 2020-0 Yes [id number] 500mg Take 1 [facility] am 500 mg 1-14 tablet by [facility] o f tablet 00:00: mouth 2 (two) Medical times Branch daily. atorvastati 2020-0 Yes [id number] 80mg Take 1 [facility] n 80 mg 1-14 tablet by [facility] of tablet 00:00: mouth at [place] 00 bedtime. [facility] blood sugar 2020-0 Yes [id number] Use BID, [facility] diagnostic 1-14 DX E11.9 [facility] o f (BLOOD 00:00: (Brand [place] GLUCOSE 00 upon Medical TEST) strip insurance [facility] approval) gabapentin 2020-0 Yes [id number] 400mg Take 1 [facility] 400 mg 1-14 capsule by [facility] of capsule 00:00: mouth 3 (three) Medical times Branch daily. QUEtiapine 2020-0 Yes [id number] 100mg Take 1 [facility] 100 mg 1-14 tablet by [facility] of tablet 00:00: mouth at [place] 00 bedtime. Medical Branch SERTraline 2020-0 Yes [id number] 100mg Take 1 [facility] 100 mg 1-14 tablet by [facility] of tablet 00:00: mouth [place] 00 every Medical morning. Branch tamsulosin 2020-0 Yes [id number] .4mg Take 1 [facility] 0.4 mg 24 1-14 capsule by [facility] hr capsule 00:00: mouth [place] 00 daily. [facility] Branch traZODone 2020-0 Yes [id number] 50mg Take 1 [facility] 50 mg 1-14 tablet by [facility] of tablet 00:00: mouth at [place] 00 bedtime. [facility] levETIRAcet 2020-0 Yes [id number] 500mg Take 1 [facility] am 500 mg 1-14 tablet by [facility] o f tablet 00:00: mouth 2 00 (two) Medical times Branch daily. atorvastati 2020-0 Yes [id number] 80mg Take 1 [facility] n 80 mg 1-14 tablet by [facility] of tablet 00:00: mouth at [place] 00 bedtime. [facility] blood sugar 2020-0 Yes [id number] Use BID, [facility] diagnostic 1-14 DX E11.9 [facility] o f (BLOOD 00:00: (Brand [place] GLUCOSE 00 upon Medical TEST) strip insurance [facility] approval) gabapentin 2020-0 Yes [id number] 400mg Take 1 [facility] 400 mg 1-14 capsule by [facility] of capsule 00:00: mouth 3 00 (three) Medical times Branch daily. QUEtiapine 2020-0 Yes [id number] 100mg Take 1 [facility] 100 mg 1-14 tablet by [facility] of tablet 00:00: mouth at [place] 00 bedtime. Medical Branch SERTraline 2020-0 Yes [id number] 100mg Take 1 [facility] 100 mg 1-14 tablet by [facility] of tablet 00:00: mouth [place] 00 every Medical morning. Branch tamsulosin 2020-0 Yes [id number] .4mg Take 1 [facility] 0.4 mg 24 1-14 capsule by [facility] hr capsule 00:00: mouth [place] 00 daily. [facility] traZODone 2020-0 Yes [id number] 50mg Take 1 [facility] 50 mg 1-14 tablet by [facility] of tablet 00:00: mouth at [place] 00 bedtime. [facility] levETIRAcet 2020-0 Yes [id number] 500mg Take 1 [facility] am 500 mg 1-14 tablet by [facility] o f tablet 00:00: mouth 2 00 (two) Medical times Branch daily. atorvastati 2020-0 Yes [id number] 80mg Take 1 [facility] n 80 mg 1-14 tablet by [facility] of tablet 00:00: mouth at [place] 00 bedtime. [facility] blood sugar 2020-0 Yes [id number] Use BID, [facility] diagnostic 1-14 DX E11.9 [facility] o f (BLOOD 00:00: (Brand [place] GLUCOSE 00 upon Medical TEST) strip insurance [facility] approval) gabapentin 2020-0 Yes [id number] 400mg Take 1 [facility] 400 mg 1-14 capsule by [facility] of capsule 00:00: mouth 3 (three) Medical times Branch daily. QUEtiapine 2020-0 Yes [id number] 100mg Take 1 [facility] 100 mg 1-14 tablet by [facility] of tablet 00:00: mouth at [place] 00 bedtime. Medical Branch SERTraline 2020-0 Yes [id number] 100mg Take 1 [facility] 100 mg 1-14 tablet by [facility] of tablet 00:00: mouth [place] 00 every Medical morning. Branch tamsulosin 2020-0 Yes [id number] .4mg Take 1 [facility] 0.4 mg 24 1-14 capsule by [facility] of hr capsule 00:00: mouth [place] 00 daily. [facility] traZODone 2020-0 Yes [id number] 50mg Take 1 [facility] 50 mg 1-14 tablet by [facility] of tablet 00:00: mouth at [place] 00 bedtime. [facility] levETIRAcet 2020-0 Yes [id number] 500mg Take 1 [facility] am 500 mg 1-14 tablet by it[facility] o f tablet 00:00: mouth 2 00 (two) Medical times Branch daily. atorvastati 2020-0 Yes [id number] 80mg Take 1 [facility] n 80 mg 1-14 tablet by [facility] of tablet 00:00: mouth at [place] 00 bedtime. Medical [facility] blood sugar 2020-0 Yes [id number] Use BID, [facility] diagnostic 1-14 DX E11.9 it[facility] o f (BLOOD 00:00: (Brand [place] GLUCOSE 00 upon Medical TEST) strip insurance [facility] approval) gabapentin 2020-0 Yes [id number] 400mg Take 1 [facility] 400 mg 1-14 capsule by [facility] of capsule 00:00: mouth 3 00 (three) Medical times Branch daily. QUEtiapine 2020-0 Yes [id number] 100mg Take 1 [facility] 100 mg 1-14 tablet by ity of tablet 00:00: mouth at [place] 00 bedtime. Medical Branch SERTraline 2020-0 Yes [id number] 100mg Take 1 [facility] 100 mg 1-14 tablet by ity of tablet 00:00: mouth [place] 00 every Medical morning. Branch tamsulosin 2020-0 Yes [id number] .4mg Take 1 [facility] 0.4 mg 24 1-14 capsule by [facility] of hr capsule 00:00: mouth [place] 00 daily. [facility] Branch traZODone 2020-0 Yes [id number] 50mg Take 1 [facility] 50 mg 1-14 tablet by [facility] of tablet 00:00: mouth at [place] 00 bedtime. [facility] levETIRAcet 2020-0 Yes [id number] 500mg Take 1 [facility] am 500 mg 1-14 tablet by ity o f tablet 00:00: mouth 2 [place] (two) Medical times Branch daily. atorvastati 2020-0 Yes [id number] 80mg Take 1 [facility] n 80 mg 1-14 tablet by [facility] of tablet 00:00: mouth at [place] [address] bedtime. Medical Branch blood sugar 2020-0 Yes [id number] Use BID, [facility] diagnostic 1-14 DX E11.9 it[facility] o f (BLOOD 00:00: (Brand [place] GLUCOSE 00 upon Medical TEST) strip insurance [facility] approval) gabapentin 2020-0 Yes [id number] 400mg Take 1 [facility] 400 mg 1-14 capsule by [facility] of capsule 00:00: mouth 3 [place] (three) Medical times Branch daily. QUEtiapine 2020-0 Yes [id number] 100mg Take 1 [facility] 100 mg 1-14 tablet by ity of tablet 00:00: mouth at [place] 00 bedtime. Medical Branch SERTraline 2020-0 Yes [id number] 100mg Take 1 [facility] 100 mg 1-14 tablet by [facility] of tablet 00:00: mouth [place] 00 every Medical morning. Branch tamsulosin 2020-0 Yes [id number] .4mg Take 1 [facility] 0.4 mg 24 1-14 capsule by [facility] of hr capsule 00:00: mouth [place] 00 daily. [facility] Branch traZODone 2020-0 Yes [id number] 50mg Take 1 [facility] 50 mg 1-14 tablet by [facility] of tablet 00:00: mouth at [place] 00 bedtime. [facility] Branch levETIRAcet 2020-0 Yes [id number] 500mg Take 1 [facility] am 500 mg 1-14 tablet by [facility]y o f tablet 00:00: mouth 2 (two) Medical times Branch daily. atorvastati 2020-0 Yes [id number] 80mg Take 1 [facility] n 80 mg 1-14 tablet by [facility] of tablet 00:00: mouth at [place] 00 bedtime. Medical Branch blood sugar 2020-0 Yes [id number] Use BID, [facility] diagnostic 1-14 DX E11.9 ity o f (BLOOD 00:00: (Brand [place] GLUCOSE 00 upon Medical TEST) strip insurance [facility] approval) gabapentin 2020-0 Yes [id number] 400mg Take 1 [facility] 400 mg 1-14 capsule by [facility] of capsule 00:00: mouth 3 (three) Medical times Branch daily. QUEtiapine 2020-0 Yes [id number] 100mg Take 1 [facility] 100 mg 1-14 tablet by ity of tablet 00:00: mouth at [place] 00 bedtime. Medical Branch SERTraline 2020-0 Yes [id number] 100mg Take 1 [facility] 100 mg 1-14 tablet by [facility] of tablet 00:00: mouth [place] 00 every Medical morning. Branch tamsulosin 2020-0 Yes [id number] .4mg Take 1 [facility] 0.4 mg 24 1-14 capsule by [facility] of hr capsule 00:00: mouth 00 daily. Medical Branch traZODone 2020-0 Yes [id number] 50mg Take 1 [facility] 50 mg 1-14 tablet by [facility] of tablet 00:00: mouth at [place] 00 bedtime. Medical Branch levETIRAcet 2020-0 Yes [id number] 500mg Take 1 [facility] am 500 mg 1-14 tablet by ity o f tablet 00:00: mouth 2 (two) Medical times Branch daily. atorvastati 2020-0 Yes [id number] 80mg Take 1 [facility] n 80 mg 1-14 tablet by it[facility] of tablet 00:00: mouth at [place] 00 bedtime. Medical Branch blood sugar 2020-0 Yes [id number] Use BID, [facility] diagnostic 1-14 DX E11.9 ity o f (BLOOD 00:00: (Brand [place] GLUCOSE 00 upon Medical TEST) strip insurance [facility] approval) gabapentin 2020-0 Yes [id number] 400mg Take 1 [facility] 400 mg 1-14 capsule by ity of capsule 00:00: mouth 3 00 (three) Medical times Branch daily. QUEtiapine 2020-0 Yes [id number] 100mg Take 1 [facility] 100 mg 1-14 tablet by ity of tablet 00:00: mouth at [place] 00 bedtime. Medical Branch SERTraline 2020-0 Yes [id number] 100mg Take 1 [facility] 100 mg 1-14 tablet by ity of tablet 00:00: mouth [place] 00 every Medical morning. Branch tamsulosin 2020-0 Yes [id number] .4mg Take 1 [facility] 0.4 mg 24 1-14 capsule by ity of hr capsule 00:00: mouth [place] 00 daily. Medical Branch traZODone 2020-0 Yes [id number] 50mg Take 1 [facility] 50 mg 1-14 tablet by ity of tablet 00:00: mouth at [place] 00 bedtime. Medical Branch levETIRAcet 2020-0 Yes [id number] 500mg Take 1 [facility] am 500 mg 1-14 tablet by ity o f tablet 00:00: mouth 2 [place] (two) Medical times Branch daily. atorvastati 2020-0 Yes [id number] 80mg Take 1 [facility] n 80 mg 1-14 tablet by ity of tablet 00:00: mouth at [place] 00 bedtime. Medical Branch blood sugar 2020-0 Yes [id number] Use BID, [facility] diagnostic 1-14 DX E11.9 ity o f (BLOOD 00:00: (Brand [place] GLUCOSE 00 upon Medical TEST) strip insurance [facility] approval) gabapentin 2020-0 Yes [id number] 400mg Take 1 [facility] 400 mg 1-14 capsule by ity of capsule 00:00: mouth 3 [place] 00 (three) Medical times Branch daily. QUEtiapine 2020-0 Yes [id number] 100mg Take 1 [facility] 100 mg 1-14 tablet by ity of tablet 00:00: mouth at [place] 00 bedtime. Medical Branch SERTraline 2020-0 Yes [id number] 100mg Take 1 [facility] 100 mg 1-14 tablet by ity of tablet 00:00: mouth [place] 00 every Medical morning. Branch tamsulosin 2020-0 Yes [id number] .4mg Take 1 [facility] 0.4 mg 24 1-14 capsule by ity of hr capsule 00:00: mouth [place] 00 daily. [facility] Branch traZODone 2020-0 Yes [id number] 50mg Take 1 [facility] 50 mg 1-14 tablet by ity of tablet 00:00: mouth at [place] 00 bedtime. Medical Branch levETIRAcet 2020-0 Yes [id number] 500mg Take 1 [facility] am 500 mg 1-14 tablet by ity o f tablet 00:00: mouth 2 00 (two) Medical times Branch daily. atorvastati 2020-0 Yes [id number] 80mg Take 1 [facility] n 80 mg 1-14 tablet by ity of tablet 00:00: mouth at [place] 00 bedtime. Medical Branch blood sugar 2020-0 Yes [id number] Use BID, [facility] diagnostic 1-14 DX E11.9 ity o f (BLOOD 00:00: (Brand [place] GLUCOSE 00 upon Medical TEST) strip insurance [facility] approval) gabapentin 2020-0 Yes [id number] 400mg Take 1 [facility] 400 mg 1-14 capsule by ity of capsule 00:00: mouth 3 (three) Medical times Branch daily. QUEtiapine 2020-0 Yes [id number] 100mg Take 1 [facility] 100 mg 1-14 tablet by ity of tablet 00:00: mouth at [place] 00 bedtime. Medical Branch SERTraline 2020-0 Yes [id number] 100mg Take 1 [facility] 100 mg 1-14 tablet by ity of tablet 00:00: mouth [place] 00 every Medical morning. Branch tamsulosin 2020-0 Yes [id number] .4mg Take 1 [facility] 0.4 mg 24 1-14 capsule by ity of hr capsule 00:00: mouth [place] 00 daily. Medical Branch traZODone 2020-0 Yes [id number] 50mg Take 1 [facility] 50 mg 1-14 tablet by ity of tablet 00:00: mouth at [place] 00 bedtime. Medical Branch levETIRAcet 2020-0 Yes [id number] 500mg Take 1 [facility] am 500 mg 1-14 tablet by ity o f tablet 00:00: mouth 2 00 (two) Medical times Branch daily. atorvastati 2020-0 Yes [id number] 80mg Take 1 [facility] n 80 mg 1-14 tablet by ity of tablet 00:00: mouth at [place] 00 bedtime. Medical Branch blood sugar 2020-0 Yes [id number] Use BID, [facility] diagnostic 1-14 DX E11.9 ity o f (BLOOD 00:00: (Brand [place] GLUCOSE 00 upon Medical TEST) strip insurance [facility] approval) gabapentin 2020-0 Yes [id number] 400mg Take 1 [facility] 400 mg 1-14 capsule by ity of capsule 00:00: mouth 3 (three) Medical times Branch daily. QUEtiapine 2020-0 Yes [id number] 100mg Take 1 [facility] 100 mg 1-14 tablet by ity of tablet 00:00: mouth at [place] 00 bedtime. Medical Branch SERTraline 2020-0 Yes [id number] 100mg Take 1 [facility] 100 mg 1-14 tablet by ity of tablet 00:00: mouth [place] 00 every Medical morning. Branch tamsulosin 2020-0 Yes [id number] .4mg Take 1 [facility] 0.4 mg 24 1-14 capsule by ity of hr capsule 00:00: mouth 00 daily. Medical Branch traZODone 2020-0 Yes [id number] 50mg Take 1 [facility] 50 mg 1-14 tablet by ity of tablet 00:00: mouth at [place] 00 bedtime. Medical Branch levETIRAcet 2020-0 Yes [id number] 500mg Take 1 [facility] am 500 mg 1-14 tablet by ity o f tablet 00:00: mouth 2 (two) Medical times Branch daily. atorvastati 2020-0 Yes [id number] 80mg Take 1 [facility] n 80 mg 1-14 tablet by ity of tablet 00:00: mouth at [place] 00 bedtime. Medical Branch blood sugar 2020-0 Yes [id number] Use BID, [facility] diagnostic 1-14 DX E11.9 ity o f (BLOOD 00:00: ([facility] GLUCOSE 00 upon Medical TEST) strip insurance [facility] approval) gabapentin 2020-0 Yes [id number] 400mg Take 1 [facility] 400 mg 1-14 capsule by ity of capsule 00:00: mouth 3 (three) Medical times Branch daily. QUEtiapine 2020-0 Yes [id number] 100mg Take 1 [facility] 100 mg 1-14 tablet by ity of tablet 00:00: mouth at [place] 00 bedtime. Medical Branch SERTraline 2020-0 Yes [id number] 100mg Take 1 [facility] 100 mg 1-14 tablet by ity of tablet 00:00: mouth [place] 00 every Medical morning. Branch tamsulosin 2020-0 Yes [id number] .4mg Take 1 [facility] 0.4 mg 24 1-14 capsule by ity of hr capsule 00:00: mouth [place] 00 daily. Medical Branch traZODone 2020-0 Yes [id number] 50mg Take 1 [facility] 50 mg 1-14 tablet by ity of tablet 00:00: mouth at [place] 00 bedtime. Medical Branch levETIRAcet 2020-0 Yes [id number] 500mg Take 1 [facility] am 500 mg 1-14 tablet by ity o f tablet 00:00: mouth 2 [place] (two) Medical times Branch daily. atorvastati 2020-0 Yes [id number] 80mg Take 1 [facility] n 80 mg 1-14 tablet by ity of tablet 00:00: mouth at [place] 00 bedtime. Medical Branch blood sugar 2020-0 Yes [id number] Use BID, [facility] diagnostic 1-14 DX E11.9 ity o f (BLOOD 00:00: (Brand [place] GLUCOSE 00 upon Medical TEST) strip insurance [facility] approval) gabapentin 2020-0 Yes [id number] 400mg Take 1 [facility] 400 mg 1-14 capsule by ity of capsule 00:00: mouth 3 [place] (three) Medical times Branch daily. QUEtiapine 2020-0 Yes [id number] 100mg Take 1 [facility] 100 mg 1-14 tablet by ity of tablet 00:00: mouth at [place] 00 bedtime. Medical Branch SERTraline 2020-0 Yes [id number] 100mg Take 1 [facility] 100 mg 1-14 tablet by ity of tablet 00:00: mouth [place] 00 every Medical morning. Branch tamsulosin 2020-0 Yes [id number] .4mg Take 1 [facility] 0.4 mg 24 1-14 capsule by ity of hr capsule 00:00: mouth [place] 00 daily. Medical Branch traZODone 2020-0 Yes [id number] 50mg Take 1 [facility] 50 mg 1-14 tablet by ity of tablet 00:00: mouth at [place] 00 bedtime. Medical Branch levETIRAcet 2020-0 Yes [id number] 500mg Take 1 [facility] am 500 mg 1-14 tablet by ity o f tablet 00:00: mouth 2 [place] (two) Medical times Branch daily. atorvastati 2020-0 Yes [id number] 80mg Take 1 [facility] n 80 mg 1-14 tablet by ity of tablet 00:00: mouth at [place] 00 bedtime. Medical Branch blood sugar 2020-0 Yes [id number] Use BID, [facility] diagnostic 1-14 DX E11.9 ity o f (BLOOD 00:00: (Brand [place] GLUCOSE 00 upon Medical TEST) strip insurance [facility] approval) gabapentin 2020-0 Yes [id number] 400mg Take 1 [facility] 400 mg 1-14 capsule by ity of capsule 00:00: mouth 3 00 (three) Medical times Branch daily. QUEtiapine 2020-0 Yes [id number] 100mg Take 1 [facility] 100 mg 1-14 tablet by ity of tablet 00:00: mouth at [place] 00 bedtime. Medical Branch SERTraline 2020-0 Yes [id number] 100mg Take 1 [facility] 100 mg 1-14 tablet by ity of tablet 00:00: mouth [place] 00 every Medical morning. Branch tamsulosin 2020-0 Yes [id number] .4mg Take 1 [facility] 0.4 mg 24 1-14 capsule by ity of hr capsule 00:00: mouth [place] 00 daily. Medical Branch traZODone 2020-0 Yes [id number] 50mg Take 1 [facility] 50 mg 1-14 tablet by ity of tablet 00:00: mouth at [place] 00 bedtime. Medical Branch levETIRAcet 2020-0 Yes [id number] 500mg Take 1 [facility] am 500 mg 1-14 tablet by ity o f tablet 00:00: mouth 2 (two) Medical times Branch daily. atorvastati 2020-0 Yes [id number] 80mg Take 1 [facility] n 80 mg 1-14 tablet by ity of tablet 00:00: mouth at [place] 00 bedtime. Medical Branch blood sugar 2020-0 Yes [id number] Use BID, [facility] diagnostic 1-14 DX E11.9 ity o f (BLOOD 00:00: (Brand [place] GLUCOSE 00 upon Medical TEST) strip insurance [facility] approval) gabapentin 2020-0 Yes [id number] 400mg Take 1 [facility] 400 mg 1-14 capsule by ity of capsule 00:00: mouth 3 (three) Medical times Branch daily. QUEtiapine 2020-0 Yes [id number] 100mg Take 1 [facility] 100 mg 1-14 tablet by ity of tablet 00:00: mouth at [place] 00 bedtime. Medical Branch SERTraline 2020-0 Yes [id number] 100mg Take 1 [facility] 100 mg 1-14 tablet by ity of tablet 00:00: mouth [place] 00 every Medical morning. Branch tamsulosin 2020-0 Yes [id number] .4mg Take 1 [facility] 0.4 mg 24 1-14 capsule by ity of hr capsule 00:00: mouth 00 daily. Medical Branch traZODone 2020-0 Yes [id number] 50mg Take 1 [facility] 50 mg 1-14 tablet by ity of tablet 00:00: mouth at [place] [address] bedtime. Medical Branch levETIRAcet 2020-0 Yes [id number] 500mg Take 1 [facility] am 500 mg 1-14 tablet by ity o f tablet 00:00: mouth 2 [place] (two) Medical times Branch daily. atorvastati 2020-0 Yes [id number] 80mg Take 1 [facility] n 80 mg 1-14 tablet by ity of tablet 00:00: mouth at [place] [address] bedtime. Medical Branch blood sugar 2020-0 Yes [id number] Use BID, [facility] diagnostic 1-14 DX E11.9 ity o f (BLOOD 00:00: (Brand [place] GLUCOSE 00 upon Medical TEST) strip insurance [facility] approval) gabapentin 2020-0 Yes [id number] 400mg Take 1 [facility] 400 mg 1-14 capsule by ity of capsule 00:00: mouth 3 [place] (three) Medical times Branch daily. QUEtiapine 2020-0 Yes [id number] 100mg Take 1 [facility] 100 mg 1-14 tablet by ity of tablet 00:00: mouth at [place] [address] bedtime. Medical Branch SERTraline 2020-0 Yes [id number] 100mg Take 1 [facility] 100 mg 1-14 tablet by ity of tablet 00:00: mouth [place] 00 every Medical morning. Branch tamsulosin 2020-0 Yes [id number] .4mg Take 1 [facility] 0.4 mg 24 1-14 capsule by ity of hr capsule 00:00: mouth daily. Medical Branch traZODone 2020-0 Yes [id number] 50mg Take 1 [facility] 50 mg 1-14 tablet by ity of tablet 00:00: mouth at [place] 00 bedtime. Medical Branch levETIRAcet 2020-0 Yes [id number] 500mg Take 1 [facility] am 500 mg 1-14 tablet by ity o f tablet 00:00: mouth 2 [place] (two) Medical times Branch daily. atorvastati 2020-0 Yes [id number] 80mg Take 1 [facility] n 80 mg 1-14 tablet by ity of tablet 00:00: mouth at [place] 00 bedtime. Medical Branch blood sugar 2020-0 Yes [id number] Use BID, [facility] diagnostic 1-14 DX E11.9 ity o f (BLOOD 00:00: (Brand [place] GLUCOSE 00 upon Medical TEST) strip insurance [facility] approval) gabapentin 2020-0 Yes [id number] 400mg Take 1 [facility] 400 mg 1-14 capsule by ity of capsule 00:00: mouth 3 (three) Medical times Branch daily. QUEtiapine 2020-0 Yes [id number] 100mg Take 1 [facility] 100 mg 1-14 tablet by ity of tablet 00:00: mouth at [place] 00 bedtime. Medical Branch SERTraline 2020-0 Yes [id number] 100mg Take 1 [facility] 100 mg 1-14 tablet by ity of tablet 00:00: mouth [place] 00 every Medical morning. Branch tamsulosin 2020-0 Yes [id number] .4mg Take 1 [facility] 0.4 mg 24 1-14 capsule by ity of hr capsule 00:00: mouth 00 daily. Medical Branch traZODone 2020-0 Yes [id number] 50mg Take 1 [facility] 50 mg 1-14 tablet by ity of tablet 00:00: mouth at [place] bedtime. Medical Branch levETIRAcet 2020-0 Yes [id number] 500mg Take 1 [facility] am 500 mg 1-14 tablet by ity o f tablet 00:00: mouth 2 (two) Medical times Branch daily. atorvastati 2020-0 Yes [id number] 80mg Take 1 [facility] n 80 mg 1-14 tablet by ity of tablet 00:00: mouth at [place] 00 bedtime. Medical Branch blood sugar 2020-0 Yes [id number] Use BID, [facility] diagnostic 1-14 DX E11.9 ity o f (BLOOD 00:00: (Brand [place] GLUCOSE 00 upon Medical TEST) strip insurance [facility] approval) gabapentin 2020-0 Yes [id number] 400mg Take 1 [facility] 400 mg 1-14 capsule by ity of capsule 00:00: mouth 3 (three) Medical times Branch daily. QUEtiapine 2020-0 Yes [id number] 100mg Take 1 [facility] 100 mg 1-14 tablet by ity of tablet 00:00: mouth at [place] 00 bedtime. Medical Branch SERTraline 2020-0 Yes [id number] 100mg Take 1 [facility] 100 mg 1-14 tablet by ity of tablet 00:00: mouth [place] 00 every Medical morning. Branch tamsulosin 2020-0 Yes [id number] .4mg Take 1 [facility] 0.4 mg 24 1-14 capsule by ity of hr capsule 00:00: mouth [place] 00 daily. Medical Branch traZODone 2020-0 Yes [id number] 50mg Take 1 [facility] 50 mg 1-14 tablet by ity of tablet 00:00: mouth at [place] 00 bedtime. Medical Branch levETIRAcet 2020-0 Yes [id number] 500mg Take 1 [facility] am 500 mg 1-14 tablet by ity o f tablet 00:00: mouth 2 [place] (two) Medical times Branch daily. atorvastati 2020-0 Yes [id number] 80mg Take 1 [facility] n 80 mg 1-14 tablet by ity of tablet 00:00: mouth at [place] 00 bedtime. Medical Branch blood sugar 2020-0 Yes [id number] Use BID, [facility] diagnostic 1-14 DX E11.9 ity o f (BLOOD 00:00: (Brand [place] GLUCOSE 00 upon Medical TEST) strip insurance [facility] approval) gabapentin 2020-0 Yes [id number] 400mg Take 1 [facility] 400 mg 1-14 capsule by ity of capsule 00:00: mouth 3 [place] (three) Medical times Branch daily. QUEtiapine 2020-0 Yes [id number] 100mg Take 1 [facility] 100 mg 1-14 tablet by ity of tablet 00:00: mouth at [place] 00 bedtime. Medical Branch SERTraline 2020-0 Yes [id number] 100mg Take 1 [facility] 100 mg 1-14 tablet by ity of tablet 00:00: mouth [place] 00 every Medical morning. Branch tamsulosin 2020-0 Yes [id number] .4mg Take 1 [facility] 0.4 mg 24 1-14 capsule by ity of hr capsule 00:00: mouth [place] 00 daily. Medical Branch traZODone 2020-0 Yes [id number] 50mg Take 1 [facility] 50 mg 1-14 tablet by ity of tablet 00:00: mouth at [place] 00 bedtime. Medical Branch levETIRAcet 2020-0 Yes [id number] 500mg Take 1 [facility] am 500 mg 1-14 tablet by ity o f tablet 00:00: mouth 2 [place] (two) Medical times Branch daily. atorvastati 2020-0 Yes [id number] 80mg Take 1 [facility] n 80 mg 1-14 tablet by ity of tablet 00:00: mouth at [place] 00 bedtime. Medical Branch blood sugar 2020-0 Yes [id number] Use BID, [facility] diagnostic 1-14 DX E11.9 ity o f (BLOOD 00:00: (Brand [place] GLUCOSE 00 upon Medical TEST) strip insurance [facility] approval) gabapentin 2020-0 Yes [id number] 400mg Take 1 [facility] 400 mg 1-14 capsule by ity of capsule 00:00: mouth 3 (three) Medical times Branch daily. QUEtiapine 2020-0 Yes [id number] 100mg Take 1 [facility] 100 mg 1-14 tablet by ity of tablet 00:00: mouth at [place] 00 bedtime. Medical Branch SERTraline 2020-0 Yes [id number] 100mg Take 1 [facility] 100 mg 1-14 tablet by ity of tablet 00:00: mouth [place] 00 every Medical morning. Branch tamsulosin 2020-0 Yes [id number] .4mg Take 1 [facility] 0.4 mg 24 1-14 capsule by ity of hr capsule 00:00: mouth daily. Medical Branch traZODone 2020-0 Yes [id number] 50mg Take 1 [facility] 50 mg 1-14 tablet by ity of tablet 00:00: mouth at [place] 00 bedtime. Medical Branch levETIRAcet 2020-0 Yes [id number] 500mg Take 1 [facility] am 500 mg 1-14 tablet by ity o f tablet 00:00: mouth 2 (two) Medical times Branch daily. atorvastati 2020-0 Yes [id number] 80mg Take 1 [facility] n 80 mg 1-14 tablet by ity of tablet 00:00: mouth at [place] 00 bedtime. Medical Branch blood sugar 2020-0 Yes [id number] Use BID, [facility] diagnostic 1-14 DX E11.9 ity o f (BLOOD 00:00: (Brand [place] GLUCOSE 00 upon Medical TEST) strip insurance [facility] approval) gabapentin 2020-0 Yes [id number] 400mg Take 1 [facility] 400 mg 1-14 capsule by ity of capsule 00:00: mouth 3 (three) Medical times Branch daily. QUEtiapine 2020-0 Yes [id number] 100mg Take 1 [facility] 100 mg 1-14 tablet by ity of tablet 00:00: mouth at [place] 00 bedtime. Medical Branch SERTraline 2020-0 Yes [id number] 100mg Take 1 [facility] 100 mg 1-14 tablet by ity of tablet 00:00: mouth [place] 00 every Medical morning. Branch tamsulosin 2020-0 Yes [id number] .4mg Take 1 [facility] 0.4 mg 24 1-14 capsule by ity of hr capsule 00:00: mouth [place] 00 daily. Medical Branch traZODone 2020-0 Yes [id number] 50mg Take 1 [facility] [place] 50 mg 1-14 tablet by ity of tablet 00:00: mouth at [place] 00 bedtime. Medical Branch levETIRAcet 2020-0 Yes [id number] 500mg Take 1 [facility] am 500 mg 1-14 tablet by ity o f tablet 00:00: mouth 2 [place] (two) Medical times Branch daily. atorvastati 2020-0 Yes [id number] 80mg Take 1 [facility] n 80 mg 1-14 tablet by ity of tablet 00:00: mouth at [place] 00 bedtime. Medical Branch blood sugar 2020-0 Yes [id number] Use BID, [facility] diagnostic 1-14 DX E11.9 ity o f (BLOOD 00:00: (Brand [place] GLUCOSE 00 upon Medical TEST) strip insurance [facility] approval) gabapentin 2020-0 Yes [id number] 400mg Take 1 [facility] 400 mg 1-14 capsule by ity of capsule 00:00: mouth 3 (three) Medical times Branch daily. QUEtiapine 2020-0 Yes [id number] 100mg Take 1 [facility] 100 mg 1-14 tablet by ity of tablet 00:00: mouth at [place] 00 bedtime. Medical Branch SERTraline 2020-0 Yes [id number] 100mg Take 1 [facility] 100 mg 1-14 tablet by ity of tablet 00:00: mouth [place] 00 every Medical morning. Branch tamsulosin 2020-0 Yes [id number] .4mg Take 1 [facility] 0.4 mg 24 1-14 capsule by ity of hr capsule 00:00: mouth [place] 00 daily. Medical Branch traZODone 2020-0 Yes [id number] 50mg Take 1 [facility] [place] 50 mg 1-14 tablet by ity of tablet 00:00: mouth at [place] 00 bedtime. Medical Branch levETIRAcet 2020-0 Yes [id number] 500mg Take 1 [facility] am 500 mg 1-14 tablet by ity o f tablet 00:00: mouth 2 [place] 00 (two) Medical times Branch daily. atorvastati Yes [id number] 80mg Take 1 [facility] n 80 mg 1-14 tablet by ity of tablet 00:00: mouth at [place] 00 bedtime. Medical Branch blood sugar Yes [id number] Use BID, [facility] diagnostic 1-14 DX E11.9 ity o f (BLOOD 00:00: (Brand [place] GLUCOSE 00 upon Medical TEST) strip insurance [facility] approval) Pioglitazon 2020- No [id number] 1{tbl} Take 1 [facility] e-Metformin 1-14 03-05 tablet by it y of 15-1,000 mg 00:00: 00:00 mouth 2 [place] TM24 00 :00 (two) Medical times Branch daily with meals. Pioglitazon 2020- No [id number] 1{tbl} Take 1 [facility] e-Metformin 1-14 03-05 tablet by it y of 15-1,000 mg 00:00: 00:00 mouth 2 [place] TM24 00 :00 (two) Medical times Branch daily with meals. TENS unit Yes [id number] 1{kit} 1 Kit [facility] and 8-27 daily. ity of electrodes 00:00: [address] TENS unit 2018- Yes [id number] 1{kit} 1 Kit Univers and 8-27 daily. ity of electrodes 00:00: [address] TENS unit 2018-0 Yes [id number] 1{kit} 1 Kit Univers and 8-27 daily. ity of electrodes 00:00: [address] Branch gabapentin 2018-0 Yes [id number] 400mg Take 1 [facility] 400 mg 8-27 capsule by ity of capsule 00:00: mouth 3 [place] 00 (three) Medical times Branch daily. TENS unit Yes [id number] 1{kit} 1 Kit Univers and 8-27 daily. ity of electrodes 00:00: [address] Branch TENS unit 2018- Yes [id number] 1{kit} 1 Kit [facility] and 8-27 daily. ity of electrodes 00:00: [address] TENS unit 2018-0 Yes [id number] 1{kit} 1 Kit Univers and 8-27 daily. ity of electrodes 00:00: [place] [facility] 00 Medical Branch TENS unit 2019-0 Yes [id number] 1{kit} 1 Kit Univers and 8-27 daily. ity of electrodes 00:00: [address] Branch TENS unit 2019-0 Yes [id number] 1{kit} 1 Kit Univers and 8-27 daily. ity of electrodes 00:00: [facility] Branch TENS unit 2019-0 Yes [id number] 1{kit} 1 Kit Univers and 8-27 daily. ity of electrodes 00:00: [place] [address] Medical Branch TENS unit 2019-0 Yes [id number] 1{kit} 1 Kit Univers and 8-27 daily. ity of electrodes 00:00: [address] Branch TENS unit 2019-0 Yes [id number] 1{kit} 1 Kit Univers and 8-27 daily. ity of electrodes 00:00: [address] Branch gabapentin 2019-0 Yes [id number] 400mg Take 1 [facility] 400 mg 8-27 capsule by ity of capsule 00:00: mouth 3 [place] [address] (three) Medical times [place] daily. TENS unit 2019-0 Yes [id number] 1{kit} 1 Kit Univers and 8-27 daily. ity of electrodes 00:00: [address] Branch TENS unit 2019-0 Yes [id number] 1{kit} 1 Kit Univers and 8-27 daily. ity of electrodes 00:00: [address] Branch TENS unit 2019-0 Yes [id number] 1{kit} 1 Kit Univers and 8-27 daily. ity of electrodes 00:00: [address] Branch TENS unit 2019-0 Yes [id number] 1{kit} 1 Kit Univers and 8-27 daily. ity of electrodes 00:00: [address] Branch gabapentin 2019-0 Yes [id number] 400mg Take 1 [facility] 400 mg 8-27 capsule by ity of capsule 00:00: mouth 3 [place] (three) Medical times [place] daily. TENS unit 2019-0 Yes [id number] 1{kit} 1 Kit Univers and 8-27 daily. ity of electrodes 00:00: [address] gabapentin 2019-0 Yes [id number] 400mg Take 1 [facility] 400 mg 8-27 capsule by ity of capsule 00:00: mouth 3 [place] [address] (three) Medical times [place] daily. TENS unit 2019-0 Yes [id number] 1{kit} 1 Kit Univers and 8-27 daily. ity of electrodes 00:00: [address] gabapentin 2019-0 Yes [id number] 400mg Take 1 [facility] 400 mg 8-27 capsule by ity of capsule 00:00: mouth 3 [place] [address] (three) Medical times Branch daily. TENS unit 2019-0 Yes [id number] 1{kit} 1 Kit Univers and 8-27 daily. ity of electrodes 00:00: [address] TENS unit 2018-0 Yes [id number] 1{kit} 1 Kit Univers and 8-27 daily. ity of electrodes 00:00: [address] TENS unit 2018-0 Yes [id number] 1{kit} 1 Kit Univers and 8-27 daily. ity of electrodes 00:00: [address] TENS unit 2018-0 Yes [id number] 1{kit} 1 Kit Univers and 8-27 daily. ity of electrodes 00:00: [address] TENS unit 2018-0 Yes [id number] 1{kit} 1 Kit Univers and 8-27 daily. ity of electrodes 00:00: [address] TENS unit 2018-0 Yes [id number] 1{kit} 1 Kit Univers and 8-27 daily. ity of electrodes 00:00: [address] TENS unit 2018-0 Yes [id number] 1{kit} 1 Kit Univers and 8-27 daily. ity of electrodes 00:00: [address] TENS unit 2018-0 Yes [id number] 1{kit} 1 Kit Univers and 8-27 daily. ity of electrodes 00:00: [address] TENS unit 2019-0 Yes [id number] 1{kit} 1 Kit Univers and 8-27 daily. ity of electrodes 00:00: [address] TENS unit 2018-0 Yes [id number] 1{kit} 1 Kit Univers and 8-27 daily. ity of electrodes 00:00: [address] TENS unit 2019-0 Yes [id number] 1{kit} 1 Kit Univers and 8-27 daily. ity of electrodes 00:00: [address] TENS unit 2018-0 Yes [id number] 1{kit} 1 Kit Univers and 8-27 daily. ity of electrodes 00:00: [facility] 00 Medical Branch TENS unit 2019-0 Yes [id number] 1{kit} 1 Kit Univers and 8-27 daily. ity of electrodes 00:00: [facility] Medical Branch TENS unit 2019-0 Yes [id number] 1{kit} 1 Kit Univers and 8-27 daily. ity of electrodes 00:00: [facility] Medical Branch TENS unit 2018-0 Yes [id number] 1{kit} 1 Kit Univers and 8-27 daily. ity of electrodes 00:00: [facility] Medical Branch TENS unit 2018-0 Yes [id number] 1{kit} 1 Kit Univers and 8-27 daily. ity of electrodes 00:00: [facility] Medical Branch TENS unit 2018-0 Yes [id number] 1{kit} 1 Kit Univers and 8-27 daily. ity of electrodes 00:00: [facility] Medical Branch TENS unit 2018-0 Yes [id number] 1{kit} 1 Kit Univers and 8-27 daily. ity of electrodes 00:00: [facility] Medical Branch TENS unit 2018-0 Yes [id number] 1{kit} 1 Kit Univers and 8-27 daily. ity of electrodes 00:00: [facility] Medical Branch TENS unit 2018-0 Yes [id number] 1{kit} 1 Kit Univers and 8-27 daily. ity of electrodes 00:00: [facility] Medical Branch TENS unit 2018-0 Yes [id number] 1{kit} 1 Kit Univers and 8-27 daily. ity of electrodes 00:00: [facility] Medical Branch TENS unit 2019-0 Yes [id number] 1{kit} 1 Kit Univers and 8-27 daily. ity of electrodes 00:00: [facility] Medical Branch TENS unit 2019-0 Yes [id number] 1{kit} 1 Kit Univers and 8-27 daily. ity of electrodes 00:00: [facility] 00 Medical Branch TENS unit 2019-0 Yes [id number] 1{kit} 1 Kit Univers and 8-27 daily. ity of electrodes 00:00: [facility] 00 Medical Branch TENS unit 2018-0 Yes [id number] 1{kit} 1 Kit Univers and 8-27 daily. ity of electrodes 00:00: [facility] 00 Medical Branch TENS unit 2019-0 Yes [id number] 1{kit} 1 Kit Univers and 8-27 daily. ity of electrodes 00:00: [address] TENS unit 2019-0 Yes [id number] 1{kit} 1 Kit Univers and 8-27 daily. ity of electrodes 00:00: [address] TENS unit 2019-0 Yes [id number] 1{kit} 1 Kit Univers and 8-27 daily. ity of electrodes 00:00: [address] TENS unit 2018-0 Yes [id number] 1{kit} 1 Kit Univers and 8-27 daily. ity of electrodes 00:00: [address] TENS unit 2018-0 Yes [id number] 1{kit} 1 Kit Univers and 8-27 daily. ity of electrodes 00:00: [address] TENS unit 2018-0 Yes [id number] 1{kit} 1 Kit Univers and 8-27 daily. ity of electrodes 00:00: [address] TENS unit 2018-0 Yes [id number] 1{kit} 1 Kit Univers and 8-27 daily. ity of electrodes 00:00: [address] TENS unit 2018-0 Yes [id number] 1{kit} 1 Kit Univers and 8-27 daily. ity of electrodes 00:00: [address] TENS unit 2018-0 Yes [id number] 1{kit} 1 Kit Univers and 8-27 daily. ity of electrodes 00:00: [address] TENS unit 2018-0 Yes [id number] 1{kit} 1 Kit Univers and 8-27 daily. ity of electrodes 00:00: [address] TENS unit 2019-0 Yes [id number] 1{kit} 1 Kit Univers and 8-27 daily. ity of electrodes 00:00: [address] TENS unit 2018-0 Yes [id number] 1{kit} 1 Kit Univers and 8-27 daily. ity of electrodes 00:00: [address] gabapentin 2019-0 Yes [id number] 400mg Take 1 Univers 400 mg 8-27 capsule by ity of capsule 00:00: mouth 3 [place] [address] (three) Medical times Branch daily. TENS unit 2018-0 Yes [id number] 1{kit} 1 Kit Univers and 8-27 daily. ity of electrodes 00:00: [address] Branch TENS unit 2019-0 Yes [id number] 1{kit} 1 Kit Univers and 8-27 daily. ity of electrodes 00:00: [address] Branch TENS unit 2019-0 Yes [id number] 1{kit} 1 Kit Univers and 8-27 daily. ity of electrodes 00:00: [place] [address] Medical Branch TENS unit 2019-0 Yes [id number] 1{kit} 1 Kit Univers and 8-27 daily. ity of electrodes 00:00: [place] [address] Medical Branch TENS unit 2019-0 Yes [id number] 1{kit} 1 Kit Univers and 8-27 daily. ity of electrodes 00:00: [address] Branch TENS unit 2019-0 Yes [id number] 1{kit} 1 Kit Univers and 8-27 daily. ity of electrodes 00:00: [address] Branch TENS unit 2019-0 Yes [id number] 1{kit} 1 Kit Univers and 8-27 daily. ity of electrodes 00:00: [address] Branch TENS unit 2019-0 Yes [id number] 1{kit} 1 Kit Univers and 8-27 daily. ity of electrodes 00:00: [address] Branch TENS unit 2019-0 Yes [id number] 1{kit} 1 Kit Univers and 8-27 daily. ity of electrodes 00:00: [address] Branch gabapentin 2018-0 2020- No [id number] 400mg Take 1 Univers 400 mg 11-12 capsule by ity of capsule 00:00: 00:00 mouth 3 [place] 00 :00 (three) Medical times [place] daily. gabapentin 2018- 2020- No [id number] 400mg Take 1 Univers 400 mg 11-12 capsule by ity of capsule 00:00: 00:00 mouth 3 [place] 00 :00 (three) Medical times [place] daily. baclofen 20 2018-0 Yes 20mg Take 20 mg Univers mg tablet 09-18 by mouth. ity o f 00:00: [address] baclofen 20 Yes 20mg Take 20 mg Univers mg tablet 09-18 by mouth. ity o f 00:00: [address] baclofen 20 Yes 20mg Take 20 mg Univers mg tablet 7-03 by mouth. ity o f 00:00: [facility] baclofen 20 2018-0 Yes 20mg Take 20 mg Univers mg tablet 7-03 by mouth. ity o f 00:00: [facility] baclofen 20 2018-0 Yes 20mg Take 20 mg Univers mg tablet 7-03 by mouth. ity o f 00:00: [facility] baclofen 20 2018-0 Yes 20mg Take 20 mg Univers mg tablet 7-03 by mouth. ity o f 00:00: [facility] baclofen 20 2018-0 Yes 20mg Take 20 mg Univers mg tablet 7-03 by mouth. ity o f 00:00: [facility] baclofen 20 2018-0 Yes 20mg Take 20 mg Univers mg tablet 7-03 by mouth. ity o f 00:00: [facility] baclofen 20 2018-0 Yes 20mg Take 20 mg Univers mg tablet 7-03 by mouth. ity o f 00:00: [facility] baclofen 20 2018-0 Yes 20mg Take 20 mg Univers mg tablet 7-03 by mouth. ity o f 00:00: [facility] baclofen 20 2018-0 Yes 20mg Take 20 mg Univers mg tablet 7-03 by mouth. ity o f 00:00: [facility] baclofen 20 2018-0 Yes 20mg Take 20 mg Univers mg tablet 7-03 by mouth. ity o f 00:00: [facility] baclofen 20 2018-0 Yes 20mg Take 20 mg Univers mg tablet 7-03 by mouth. ity o f 00:00: [facility] baclofen 20 2018-0 Yes 20mg Take 20 mg Univers mg tablet 7-03 by mouth. ity o f 00:00: [facility] baclofen 20 2018-0 Yes 20mg Take 20 mg Univers mg tablet 7-03 by mouth. ity o f 00:00: [facility] baclofen 20 2018-0 Yes 20mg Take 20 mg Univers mg tablet 7-03 by mouth. ity o f 00:00: [facility] baclofen 20 2018-0 Yes 20mg Take 20 mg Univers mg tablet 7-03 by mouth. ity o f 00:00: [facility] baclofen 20 2018-0 Yes 20mg Take 20 mg Univers mg tablet 7-03 by mouth. ity o f 00:00: [facility] Branch baclofen 20 2019-0 Yes 20mg Take 20 mg Univers mg tablet 09-18 by mouth. ity o f 00:00: [place] Medical Branch lancets 31 2019-0 Yes [id number] Use BID, Univers gauge Misc 6-18 DX E11.9 ity o f 00:00: ([facility] upon [facility] approval) lancets 31 2019-0 Yes [id number] Use BID, Univers gauge Misc 6-18 DX E11.9 ity o f 00:00: ([facility] upon [facility] approval) blood sugar 2019-0 Yes [id number] Use BID, Univers diagnostic 6-18 DX E11.9 ity o f (BLOOD 00:00: ([facility] GLUCOSE [facility]) strip insurance [facility] approval) lancets 31 2019-0 Yes [id number] Use BID, Univers gauge Misc 6-18 DX E11.9 ity o f 00:00: ([facility] approval) lancets 31 2019-0 Yes [id number] Use BID, Univers gauge Misc 6-18 DX E11.9 ity o f 00:00: ([facility] upon [facility] approval) lancets 31 2019-0 Yes [id number] Use BID, Univers gauge Misc 6-18 DX E11.9 ity o f 00:00: ([facility] upon [facility] approval) lancets 31 2019-0 Yes [id number] Use BID, Univers gauge Misc 6-18 DX E11.9 ity o f 00:00: ([facility] upon [facility] approval) lancets 31 2019-0 Yes [id number] Use BID, Univers gauge Misc 6-18 DX E11.9 ity o f 00:00: ([facility] upon [facility] approval) lancets 31 2019-0 Yes [id number] Use BID, Univers gauge Misc 6-18 DX E11.9 ity o f 00:00: ([facility] upon [facility] approval) lancets 31 2019-0 Yes [id number] Use BID, Univers gauge Misc 6-18 DX E11.9 ity o f 00:00: ([facility] upon [facility] approval) lancets 31 2019-0 Yes [id number] Use BID, Univers gauge Misc 6-18 DX E11.9 ity o f 00:00: (Brand [place] 00 upon Medical insurance Branch approval) blood sugar 2019-0 Yes [id number] Use BID, Univers diagnostic 6-18 DX E11.9 ity o f (BLOOD 00:00: (Brand [place] GLUCOSE 00 upon Medical TEST) strip insurance [facility] approval) lancets 31 2019-0 Yes [id number] Use BID, Univers gauge Misc 6-18 DX E11.9 ity o f 00:00: (Brand [place] 00 upon Medical insurance Branch approval) lancets 31 2018-0 Yes [id number] Use BID, Univers gauge Misc 6-18 DX E11.9 ity o f 00:00: (Brand [place] 00 upon Medical insurance Branch approval) lancets 31 2018-0 Yes [id number] Use BID, Univers gauge Misc 6-18 DX E11.9 ity o f 00:00: (Brand [place] 00 upon Medical insurance Branch approval) lancets 31 2019-0 Yes [id number] Use BID, Univers gauge Misc 6-18 DX E11.9 ity o f 00:00: (Brand [place] 00 upon Medical insurance Branch approval) blood sugar 2019-0 Yes [id number] Use BID, Univers diagnostic 6-18 DX E11.9 ity o f (BLOOD 00:00: (Brand [place] GLUCOSE 00 upon Medical TEST) strip insurance [facility] approval) lancets 31 2018-0 Yes [id number] Use BID, Univers gauge Misc 6-18 DX E11.9 ity o f 00:00: (Brand [place] 00 upon Medical insurance Branch approval) lancets 31 2019-0 Yes [id number] Use BID, Univers gauge Misc 6-18 DX E11.9 ity o f 00:00: (Brand [place] 00 upon Medical insurance Branch approval) blood sugar 2019-0 Yes [id number] Use BID, Univers diagnostic 6-18 DX E11.9 ity o f (BLOOD 00:00: (Brand [place] GLUCOSE 00 upon Medical TEST) strip insurance [facility] approval) lancets 31 2018-0 Yes [id number] Use BID, Univers gauge Misc 6-18 DX E11.9 ity o f 00:00: (Brand [place] 00 upon Medical insurance Branch approval) blood sugar 2019-0 Yes [id number] Use BID, Univers diagnostic 6-18 DX E11.9 ity o f (BLOOD 00:00: (Brand [place] GLUCOSE 00 upon Medical TEST) strip insurance [facility] approval) lancets 31 2019-0 Yes [id number] Use BID, Univers gauge Misc 6-18 DX E11.9 ity o f 00:00: (Brand [place] 00 upon Medical insurance Branch approval) lancets 31 2019-0 Yes [id number] Use BID, Univers gauge Misc 6-18 DX E11.9 ity o f 00:00: (Brand [place] 00 upon Medical insurance Branch approval) lancets 31 2019-0 Yes [id number] Use BID, Univers gauge Misc 6-18 DX E11.9 ity o f 00:00: (Brand [place] upon Medical insurance Branch approval) lancets 31 2019-0 Yes [id number] Use BID, Univers gauge Misc 6-18 DX E11.9 ity o f 00:00: (Brand [place] upon Medical insurance Branch approval) lancets 31 2019-0 Yes [id number] Use BID, Univers gauge Misc 6-18 DX E11.9 ity o f 00:00: (Brand [place] upon Medical insurance Branch approval) lancets 31 2019-0 Yes [id number] Use BID, Univers gauge Misc 6-18 DX E11.9 ity o f 00:00: (Brand [place] upon Medical insurance Branch approval) lancets 31 2019-0 Yes [id number] Use BID, Univers gauge Misc 6-18 DX E11.9 ity o f 00:00: (Brand [place] upon Medical insurance Branch approval) lancets 31 2019-0 Yes [id number] Use BID, Univers gauge Misc 6-18 DX E11.9 ity o f 00:00: (Brand [place] upon Medical insurance Branch approval) blood sugar 2019-0 Yes [id number] Use BID, Univers diagnostic 6-18 DX E11.9 ity o f (BLOOD 00:00: (Brand [place] GLUCOSE 00 upon Medical TEST) strip insurance [facility] approval) lancets 31 2019-0 Yes [id number] Use BID, Univers gauge Misc 6-18 DX E11.9 ity o f 00:00: (Brand [place] upon Medical insurance Branch approval) lancets 31 2019-0 Yes [id number] Use BID, Univers gauge Misc 6-18 DX E11.9 ity o f 00:00: (Brand [place] upon Medical insurance Branch approval) lancets 31 2019-0 Yes [id number] Use BID, Univers gauge Misc 6-18 DX E11.9 ity o f 00:00: (Brand [place] 00 upon Medical insurance Branch approval) lancets 31 2019-0 Yes [id number] Use BID, Univers gauge Misc 6-18 DX E11.9 ity o f 00:00: (Brand [place] 00 upon Medical insurance Branch approval) lancets 31 2019-0 Yes [id number] Use BID, Univers gauge Misc 6-18 DX E11.9 ity o f 00:00: (Brand [place] 00 upon Medical insurance Branch approval) lancets 31 2019-0 Yes [id number] Use BID, Univers gauge Misc 6-18 DX E11.9 ity o f 00:00: (Brand [place] 00 upon Medical insurance Branch approval) lancets 31 2019-0 Yes [id number] Use BID, Univers gauge Misc 6-18 DX E11.9 ity o f 00:00: (Brand [place] upon Medical insurance Branch approval) lancets 31 2019-0 Yes [id number] Use BID, Univers gauge Misc 6-18 DX E11.9 ity o f 00:00: (Brand [place] 00 upon Medical insurance Branch approval) lancets 31 2019-0 Yes [id number] Use BID, Univers gauge Misc 6-18 DX E11.9 ity o f 00:00: (Brand [place] upon Medical insurance Branch approval) lancets 31 2019-0 Yes [id number] Use BID, Univers gauge Misc 6-18 DX E11.9 ity o f 00:00: (Brand [place] 00 upon Medical insurance Branch approval) blood sugar 2019-0 Yes [id number] Use BID, Univers diagnostic 6-18 DX E11.9 ity o f (BLOOD 00:00: (Brand [place] GLUCOSE 00 upon Medical TEST) strip insurance [facility] approval) lancets 31 2019-0 Yes [id number] Use BID, Univers gauge Misc 6-18 DX E11.9 ity o f 00:00: (Brand [place] 00 upon Medical insurance Branch approval) lancets 31 2019-0 Yes [id number] Use BID, Univers gauge Misc 6-18 DX E11.9 ity o f 00:00: (Brand [place] 00 upon Medical insurance Branch approval) lancets 31 2019-0 Yes [id number] Use BID, Univers gauge Misc 6-18 DX E11.9 ity o f 00:00: (Brand [place] 00 upon Medical insurance Branch approval) lancets 31 2019-0 Yes [id number] Use BID, Univers gauge Misc 6-18 DX E11.9 ity o f 00:00: (Brand [place] upon Medical insurance Branch approval) lancets 31 2019-0 Yes [id number] Use BID, Univers gauge Misc 6-18 DX E11.9 ity o f 00:00: (Brand [place] upon Medical insurance Branch approval) lancets 31 2019-0 Yes [id number] Use BID, Univers gauge Misc 6-18 DX E11.9 ity o f 00:00: (Brand [place] upon Medical insurance Branch approval) lancets 31 2019-0 Yes [id number] Use BID, Univers gauge Misc 6-18 DX E11.9 ity o f 00:00: (Brand [place] upon Medical insurance Branch approval) lancets 31 2019-0 Yes [id number] Use BID, Univers gauge Misc 6-18 DX E11.9 ity o f 00:00: (Brand [place] upon Medical insurance Branch approval) lancets 31 2019-0 Yes [id number] Use BID, Univers gauge Misc 6-18 DX E11.9 ity o f 00:00: (Brand [place] upon Medical insurance Branch approval) lancets 31 2019-0 Yes [id number] Use BID, Univers gauge Misc 6-18 DX E11.9 ity o f 00:00: ([facility] [place] upon Medical insurance Branch approval) blood sugar 2019-0 Yes [id number] Use BID, Univers diagnostic 6-18 DX E11.9 ity o f (BLOOD 00:00: ([facility] GLUCOSE 00 upon Medical TEST) strip insurance [facility] approval) lancets 31 2019-0 Yes [id number] Use BID, Univers gauge Misc 6-18 DX E11.9 ity o f 00:00: (Brand [place] upon Medical insurance Branch approval) lancets 31 2019-0 Yes [id number] Use BID, [facility] gauge Misc 6-18 DX E11.9 ity o f 00:00: ([facility] [place] upon Medical insurance Branch approval) lancets 31 2019-0 Yes [id number] Use BID, Univers gauge Misc 6-18 DX E11.9 ity o f 00:00: ([employer] [place] upon Medical insurance Branch approval) lancets 31 2019-0 Yes [id number] Use BID, [facility] gauge Misc 6-18 DX E11.9 ity o f 00:00: ([employer] [place] 00 upon Medical insurance Branch approval) lancets 31 2019-0 Yes [id number] Use BID, Univers gauge Misc 6-18 DX E11.9 ity o f 00:00: ([employer] [place] 00 upon Medical insurance Branch approval) lancets 31 2019-0 Yes [id number] Use BID, Univers gauge Misc 6-18 DX E11.9 ity o f 00:00: ([employer] [place] upon Medical insurance Branch approval) lancets 31 2019-0 Yes [id number] Use BID, [facility] gauge Misc 6-18 DX E11.9 ity o f 00:00: ([employer] [place] upon Medical insurance Branch approval) lancets 31 2019-0 Yes [id number] Use BID, Univers gauge Misc 6-18 DX E11.9 ity o f 00:00: ([employer] [place] upon Medical insurance Branch approval) lancets 31 2019-0 Yes [id number] Use BID, Univers gauge Misc 6-18 DX E11.9 ity o f 00:00: ([employer] [place] upon Medical insurance Branch approval) lancets 31 2019-0 Yes [id number] Use BID, Univers gauge Misc 6-18 DX E11.9 ity o f 00:00: ([employer] [place] upon Medical insurance Branch approval) lancets 31 2019-0 Yes [id number] Use BID, Univers gauge Misc 6-18 DX E11.9 ity o f 00:00: ([employer] [place] 00 upon Medical insurance Branch approval) blood sugar 2019-0 Yes [id number] Use BID, Univers diagnostic 6-18 DX E11.9 ity o f (BLOOD 00:00: ([employer] [place] GLUCOSE 00 upon Medical TEST) strip insurance [facility] approval) lancets 31 2019-0 Yes [id number] Use BID, [facility] gauge Misc 6-18 DX E11.9 ity o f 00:00: (Brand [place] 00 upon Medical insurance Branch approval) lancets 31 2019-0 Yes [id number] Use BID, [facility] gauge Misc 6-18 DX E11.9 ity o f 00:00: ([employer] [place] 00 upon Medical insurance Branch approval) lancets 31 2019-0 Yes [id number] Use BID, Univers gauge Misc 6-18 DX E11.9 ity o f 00:00: ([employer] [place] upon Medical insurance Branch approval) lancets 31 2019-0 Yes [id number] Use BID, Univers gauge Misc 6-18 DX E11.9 ity o f 00:00: ([facility] upon Medical insurance Branch approval) lancets 31 2019-0 Yes [id number] Use BID, Univers gauge Misc 6-18 DX E11.9 ity o f 00:00: ([facility] upon Medical insurance Branch approval) lancets 31 2019-0 Yes [id number] Use BID, Univers gauge Misc 6-18 DX E11.9 ity o f 00:00: ([facility] upon Medical insurance Branch approval) lancets 31 2018- Yes [id number] Use BID, Univers gauge Misc 6-18 DX E11.9 ity o f 00:00: ([facility] upon [facility] Branch approval) lancets 31 2019-0 Yes [id number] Use BID, Univers gauge Misc 6-18 DX E11.9 ity o f 00:00: ([facility] upon [facility] Branch approval) lancets 31 2018-0 Yes [id number] Use BID, Univers gauge Misc 6-18 DX E11.9 ity o f 00:00: ([facility] upon [facility] insurance Branch approval) lancets 31 2018-0 Yes [id number] Use BID, Univers gauge Misc 6-18 DX E11.9 ity o f 00:00: ([facility] upon [facility] insurance Branch approval) blood sugar 2019-0 2020- No [id number] Use BID, Univers diagnostic -18 04-01 DX E11.9 ity of (BLOOD 00:00: 00:00 ([facility] GLUCOSE 00 :00 upon Medical TEST) strip insurance [facility] approval) blood sugar 2020- No [id number] Use BID, Univers diagnostic 18 04-01 DX E11.9 ity of (BLOOD 00:00: 00:00 ([facility] GLUCOSE 00 :00 upon Medical TEST) strip insurance [facility] approval) QUEtiapine 2019-0 Yes 100mg Take 100 Un hunter 100 mg 6-11 mg by ity of tablet 14:44: mouth at [place] 13 bedtime. Medical Branch hydrocortis 2019-0 Yes 10mg Take 10 mg Univers one 10 mg 6-11 by mouth ity of tablet 14:44: every [place] 13 morning. Medical Branch tamsulosin 2019-0 Yes [...] mouth [place] 13 daily. Medical Branch QUEtiapine 2018-0 Yes 100mg Take 100 Un hunter 100 mg 6-11 mg by ity of tablet 14:44: mouth at [place] 13 bedtime. Medical Branch hydrocortis 2018-0 Yes 10mg Take 10 mg Univers one 10 mg 6-11 by mouth ity of tablet 14:44: every [place] 13 morning. Medical Branch tamsulosin 2019-0 Yes .4mg Take 0.4 Uni vers 0.4 mg 24 6-11 mg by ity of hr capsule 14:44: mouth [place] 13 daily. Medical Branch QUEtiapine 2018-0 Yes 100mg Take 100 Un hunter 100 mg 6-11 mg by ity of tablet 14:44: mouth at [place] 13 bedtime. Medical Branch hydrocortis 0 Yes 10mg Take 10 mg Univers one [...] by ity of tablet 14:44: mouth at [place] [address] bedtime. Medical Branch hydrocortis 2019-0 Yes 10mg Take 10 mg [facility] one 10 mg 6-11 by mouth ity of tablet 14:44: every [place] [address] morning. Medical Branch tamsulosin 2019-0 Yes .4mg Take 0.4 Uni vers 0.4 mg 24 6-11 mg by ity of hr capsule 14:44: mouth [place] 13 daily. Medical Branch gabapentin 2018- Yes [id number] 300mg Take 1 [facility] 300 mg 6-11 capsule by ity of capsule 00:00: mouth 3 [place] 00 (three) Medical times Branch daily. gabapentin 2018- Yes [id number] 300mg Take 1 [facility] 300 mg 6-11 capsule by ity of capsule 00:00: mouth 3 [place] 00 ([facility]) Medical times Branch daily. gabapentin 2018- Yes [id number] 300mg Take 1 [facility] 300 mg 6-11 capsule by ity of capsule 00:00: mouth 3 [place] 00 ([facility]) Medical times Branch daily. gabapentin 2018- 2019- No [id number] 300mg Take 1 [facility] 300 mg 6-11 08-27 capsule by ity of capsule 00:00: 00:00 mouth 3 [place] 00 :00 (three) Medical times Branch daily. gabapentin 2018- 2019- No [id number] 300mg Take 1 [facility] 300 mg 6-11 08-27 capsule by ity of capsule 00:00: 00:00 mouth 3 [place] 00 :00 (three) Medical times Branch daily. gabapentin 2018- 2019- No [id number] 300mg Take 1 Univers 300 mg 6-11 08-27 capsule by ity of capsule 00:00: 00:00 mouth 3 [place] 00 :00 (three) Medical times Branch daily. TENS unit 2018- Yes [id number] 1{kit} 1 Kit Univers and 4-09 daily. ity of electrodes 00:00: [place] [address] Medical Branch TENS unit 2018-0 Yes [id number] 1{kit} 1 Kit Univers and 4-09 daily. ity of electrodes 00:00: [place] [address] Medical Branch TENS unit 2018-0 Yes [id number] 1{kit} 1 Kit Univers and 4-09 daily. ity of electrodes 00:00: [place] [address] Medical Branch TENS unit 2018-0 2019- No [id number] 1{kit} 1 Kit Univers and 4-09 08-27 daily. ity of electrodes 00:00: 00:00 [facility] 00 :00 Medical Branch TENS unit 2018-0 2019- No [id number] 1{kit} 1 Kit Univers and 06-25 daily. ity of electrodes 00:00: 00:00 [facility] 00 :00 Medical Branch TENS unit 2018-0 2019- No [id number] 1{kit} 1 Kit Univers and 06-25 daily. ity of electrodes 00:00: 00:00 [facility] 00 :00 Medical Branch levETIRAcet 2018-0 Yes [id number] 500mg Take 1 Univers am 500 mg 1-25 tablet by ity o f tablet 00:00: mouth (two) Medical times Branch daily. levETIRAcet 2018-0 Yes [id number] 500mg Take 1 Univers am 500 mg 1-25 tablet by ity o f tablet 00:00: mouth (two) Medical times Branch daily. levETIRAcet 2018- Yes [id number] 500mg Take 1 Univers am 500 mg 1-25 tablet by ity o f tablet 00:00: mouth (two) Medical times Branch daily. levETIRAcet 2018- Yes [id number] 500mg Take 1 Univers am 500 mg 1-25 tablet by ity o f tablet 00:00: mouth (two) Medical times Branch daily. levETIRAcet 2018- Yes [id number] 500mg Take 1 Univers am 500 mg 1-25 tablet by ity o f tablet 00:00: mouth (two) Medical times Branch daily. levETIRAcet 2018-0 Yes [id number] 500mg Take 1 Univers am 500 mg 1-25 tablet by ity o f tablet 00:00: mouth (two) Medical times Branch daily. levETIRAcet 2018-0 Yes [id number] 500mg Take 1 Univers am 500 mg 1-25 tablet by ity o f tablet 00:00: mouth (two) Medical times Branch daily. levETIRAcet 2018-0 Yes [id number] 500mg Take 1 Univers am 500 mg 1-25 tablet by ity o f tablet 00:00: mouth (two) Medical times Branch daily. levETIRAcet 2018-0 Yes [id number] 500mg Take 1 [facility] am 500 mg -25 tablet by ity o f tablet 00:00: mouth 2 [place] 00 (two) Medical times Branch daily. levETIRAcet 2019- No [id number] 500mg Take 1 [facility] am 500 mg 04-12 tablet by ity of tablet 00:00: 00:00 mouth 2 [place] 00 :00 (two) Medical times Branch daily. levETIRAcet 2019- No [id number] 500mg Take 1 Univers am 500 mg 04-12 tablet by ity of tablet 00:00: 00:00 mouth 2 [place] 00 :00 (two) Medical times Branch daily. atorvastati 2017-03 Yes [id number] 80mg Take 1 Univers n 80 mg 0-19 tablet by ity of tablet 00:00: mouth at [place] 00 bedtime. Medical Branch SERTraline 2017-03 Yes [id number] 100mg Take 1 [facility] 100 mg 0-19 tablet by ity of tablet 00:00: mouth [place] 00 every Medical morning. Branch metFORMIN 2017-03 Yes [id number] 1000mg Take 1 Univers 1,000 mg 0-19 tablet by ity of tablet 00:00: mouth 2 [place] 00 (two) Medical times Branch daily with meals. atorvastati 2017-03 Yes [id number] 80mg Take 1 [facility] n 80 mg 0-19 tablet by ity of tablet 00:00: mouth at [place] 00 bedtime. Medical Branch SERTraline 2017-03 Yes [id number] 100mg Take 1 [facility] 100 mg 0-19 tablet by ity of tablet 00:00: mouth [place] 00 every Medical morning. Branch metFORMIN 2017-03 Yes [id number] 1000mg Take 1 [facility] 1,000 mg 0-19 tablet by ity of tablet 00:00: mouth 2 [place] 00 (two) Medical times Branch daily with meals. atorvastati 2017-03 Yes [id number] 80mg Take 1 Univers n 80 mg 0-19 tablet by ity of tablet 00:00: mouth at [place] 00 bedtime. Medical Branch SERTraline 2017-03 Yes [id number] 100mg Take 1 [facility] 100 mg 0-19 tablet by ity of tablet 00:00: mouth [place] 00 every Medical morning. Branch metFORMIN 2017-03 Yes [id number] 1000mg Take 1 Univers 1,000 mg 0-19 tablet by ity of tablet 00:00: mouth 2 (two) Medical times Branch daily with meals. atorvastati 2017-03 Yes [id number] 80mg Take 1 [facility] n 80 mg 0-19 tablet by ity of tablet 00:00: mouth at [place] 00 bedtime. Medical Branch SERTraline 2017-03 Yes [id number] 100mg Take 1 [facility] 100 mg 0-19 tablet by ity of tablet 00:00: mouth [place] 00 every Medical morning. Branch metFORMIN 2017-03 Yes [id number] 1000mg Take 1 Univers 1,000 mg 0-19 tablet by ity of tablet 00:00: mouth 2 (two) Medical times Branch daily with meals. atorvastati 2017-03 Yes [id number] 80mg Take 1 Univers n 80 mg 0-19 tablet by ity of tablet 00:00: mouth at [place] 00 bedtime. Medical Branch SERTraline 2017-03 Yes [id number] 100mg Take 1 [facility] 100 mg 0-19 tablet by ity of tablet 00:00: mouth [place] 00 every Medical morning. Branch metFORMIN 2017-03 Yes [id number] 1000mg Take 1 Univers 1,000 mg 0-19 tablet by ity of tablet 00:00: mouth 2 (two) Medical times Branch daily with meals. atorvastati 2017-03 Yes [id number] 80mg Take 1 [facility] n 80 mg 0-19 tablet by ity of tablet 00:00: mouth at [place] 00 bedtime. Medical Branch SERTraline 2017-03 Yes [id number] 100mg Take 1 [facility] 100 mg 0-19 tablet by ity of tablet 00:00: mouth [place] 00 every Medical morning. Branch metFORMIN 2017-03 Yes [id number] 1000mg Take 1 Univers 1,000 mg 0-19 tablet by ity of tablet 00:00: mouth 2 (two) Medical times Branch daily with meals. atorvastati 2017-03 Yes [id number] 80mg Take 1 Univers n 80 mg 0-19 tablet by ity of tablet 00:00: mouth at [place] 00 bedtime. Medical Branch SERTraline 2017-03 Yes [id number] 100mg Take 1 [facility] 100 mg 0-19 tablet by ity of tablet 00:00: mouth [place] 00 every Medical morning. Branch metFORMIN 2017-03 Yes [id number] 1000mg Take 1 Univers 1,000 mg 0-19 tablet by ity of tablet 00:00: mouth 2 [place] 00 (two) Medical times Branch daily with meals. atorvastati 2017-03 Yes [id number] 80mg Take 1 Univers n 80 mg 0-19 tablet by ity of tablet 00:00: mouth at [place] 00 bedtime. Medical Branch SERTraline 2017-03 Yes [id number] 100mg Take 1 [facility] 100 mg 0-19 tablet by ity of tablet 00:00: mouth [place] 00 every Medical morning. Branch metFORMIN 2017-03 Yes [id number] 1000mg Take 1 Univers 1,000 mg 0-19 tablet by ity of tablet 00:00: mouth 2 [place] 00 (two) Medical times Branch daily with meals. atorvastati 2017-03 Yes [id number] 80mg Take 1 Univers n 80 mg 0-19 tablet by ity of tablet 00:00: mouth at [place] 00 bedtime. Medical Branch SERTraline 2017-03 Yes [id number] 100mg Take 1 [facility] 100 mg 0-19 tablet by ity of tablet 00:00: mouth [place] 00 every Medical morning. Branch metFORMIN 2017-03 Yes [id number] 1000mg Take 1 Univers 1,000 mg 0-19 tablet by ity of tablet 00:00: mouth 2 [place] 00 (two) Medical times Branch daily with meals. atorvastati 2017-03 2020- No [id number] 80mg Take 1 Univers n 80 mg 0-19 01-14 tablet by ity of tablet 00:00: 00:00 mouth at [place] 00 :00 bedtime. Medical Branch SERTraline 2017-03 2020- No [id number] 100mg Take 1 Univers 100 mg 0-19 01-14 tablet by ity of tablet 00:00: 00:00 mouth [place] 00 :00 every Medical morning. Branch metFORMIN 2017-03 2020- No [id number] 1000mg Take 1 Univers 1,000 mg 0-19 01-14 tablet by ity o f tablet 00:00: 00:00 mouth 2 [place] 00 :00 (two) Medical times Branch daily with meals. atorvastati 2017-03 2020- No [id number] 80mg Take 1 Univers n 80 mg 0-19 01-14 tablet by ity of tablet 00:00: 00:00 mouth at [place] 00 :00 bedtime. Medical Branch SERTraline 2017-03 2020- No [id number] 100mg Take 1 Univers 100 mg 0-19 01-14 tablet by ity of tablet 00:00: 00:00 mouth [place] 00 :00 every Medical morning. Branch metFORMIN 2017-03 2020- No [id number] 1000mg Take 1 Univers 1,000 mg 0-04-01 tablet by ity o f tablet 00:00: 00:00 mouth 2 [place] 00 :00 (two) Medical times Branch daily with meals. TENS UNIT 2016-03 Yes [id number] Use TENS Univers ELECTRODES 1-22 unit at ity of (TENS UNITS 00:00: least 2 [place] as ELECTRODES) 00 times a Medic al 2X2 " Pads day as Branch needed for pain. TENS UNIT 2016-03 Yes [id number] Use TENS Univers ELECTRODES 1-22 unit at ity of (TENS UNITS 00:00: least 2 [place] as ELECTRODES) 00 times a Medic al 2X2 " Pads day as Branch needed for pain. TENS UNIT 2016-03 Yes [id number] Use TENS Univers ELECTRODES 1-22 unit at ity of (TENS UNITS 00:00: least 2 [place] as ELECTRODES) 00 times a Medic al 2X2 " Pads day as Branch needed for pain. TENS UNIT 2016-03 Yes [id number] Use TENS Univers ELECTRODES 1-22 unit at ity of (TENS UNITS 00:00: least 2 [place] as ELECTRODES) 00 times a Medic al 2X2 " Pads day as Branch needed for pain. TENS UNIT 2016-03 Yes [id number] Use TENS [facility] ELECTRODES 1-22 unit at ity of (TENS UNITS 00:00: least 2 [place] as ELECTRODES) 00 times a Medic al 2X2 " Pads day as Branch needed for pain. TENS UNIT 2016-03 Yes [id number] Use TENS Univers ELECTRODES 1-22 unit at ity of (TENS UNITS 00:00: least 2 [place] as ELECTRODES) 00 times a Medic al 2X2 " Pads day as Branch needed for pain. TENS UNIT 2016-03 Yes [id number] Use TENS Univers ELECTRODES 1-22 unit at ity of (TENS UNITS 00:00: least 2 [place] as ELECTRODES) 00 times a Medic al 2X2 " Pads day as Branch needed for pain. TENS UNIT 2016-03 Yes [id number] Use TENS Univers ELECTRODES 1-22 unit at ity of (TENS UNITS 00:00: least 2 [place] as ELECTRODES) 00 times a Medic al 2X2 " Pads day as Branch needed for pain. TENS UNIT 2016-03 Yes [id number] Use TENS Univers ELECTRODES 1-22 unit at ity of (TENS UNITS 00:00: least 2 [place] as ELECTRODES) 00 times a Medic al 2X2 " Pads day as Branch needed for pain. TENS UNIT 2016-03 Yes [id number] Use TENS Univers ELECTRODES 1-22 unit at ity of (TENS UNITS 00:00: least 2 [place] as ELECTRODES) 00 times a Medic al 2X2 " Pads day as Branch needed for pain. TENS UNIT 2016-03 Yes [id number] Use TENS Univers ELECTRODES 1-22 unit at ity of (TENS UNITS 00:00: least 2 [place] as ELECTRODES) 00 times a Medic al 2X2 " Pads day as Branch needed for pain. TENS UNIT 2016-03 Yes [id number] Use TENS Univers ELECTRODES 1-22 unit at ity of (TENS UNITS 00:00: least 2 [place] as ELECTRODES) 00 times a Medic al 2X2 " Pads day as Branch needed for pain. TENS UNIT 2016-03 Yes [id number] Use TENS Univers ELECTRODES 1-22 unit at ity of (TENS UNITS 00:00: least 2 [place] as ELECTRODES) 00 times a Medic al 2X2 " Pads day as Branch needed for pain. TENS UNIT 2016-03 Yes [id number] Use TENS Univers ELECTRODES 1-22 unit at ity of (TENS UNITS 00:00: least 2 [place] as ELECTRODES) 00 times a Medic al 2X2 " Pads day as Branch needed for pain. TENS UNIT 2016-03 Yes [id number] Use TENS Univers ELECTRODES 1-22 unit at ity of (TENS UNITS 00:00: least 2 [place] as ELECTRODES) 00 times a Medic al 2X2 " Pads day as Branch needed for pain. TENS UNIT 2016-03 Yes [id number] Use TENS Univers ELECTRODES 1-22 unit at ity of (TENS UNITS 00:00: least 2 [place] as ELECTRODES) 00 times a Medic al 2X2 " Pads day as Branch needed for pain. TENS UNIT 2016-03 Yes [id number] Use TENS Univers ELECTRODES 1-22 unit at ity of (TENS UNITS 00:00: least 2 [place] as ELECTRODES) 00 times a Medic al 2X2 " Pads day as Branch needed for pain. TENS UNIT 2016-03 Yes [id number] Use TENS Univers ELECTRODES 1-22 unit at ity of (TENS UNITS 00:00: least 2 [place] as ELECTRODES) 00 times a Medic al 2X2 " Pads day as Branch needed for pain. TENS UNIT 2016-03 Yes [id number] Use TENS Univers ELECTRODES 1-22 unit at ity of (TENS UNITS 00:00: least 2 [place] as ELECTRODES) 00 times a Medic al 2X2 " Pads day as Branch needed for pain. TENS UNIT 2016-03 Yes [id number] Use TENS Univers ELECTRODES 1-22 unit at ity of (TENS UNITS 00:00: least 2 [place] as ELECTRODES) 00 times a Medic al 2X2 " Pads day as Branch needed for pain. TENS UNIT 2016-03 Yes [id number] Use TENS Univers ELECTRODES 1-22 unit at ity of (TENS UNITS 00:00: least 2 [place] as ELECTRODES) 00 times a Medic al 2X2 " Pads day as Branch needed for pain. TENS UNIT 2016-03 Yes [id number] Use TENS Univers ELECTRODES 1-22 unit at ity of (TENS UNITS 00:00: least 2 [place] as ELECTRODES) 00 times a Medic al 2X2 " Pads day as Branch needed for pain. TENS UNIT 2016-03 Yes [id number] Use TENS Univers ELECTRODES 1-22 unit at ity of (TENS UNITS 00:00: least 2 [place] as ELECTRODES) 00 times a Medic al 2X2 " Pads day as Branch needed for pain. TENS UNIT 2016-03 Yes [id number] Use TENS Univers ELECTRODES 1-22 unit at ity of (TENS UNITS 00:00: least 2 [place] as ELECTRODES) 00 times a Medic al 2X2 " Pads day as Branch needed for pain. TENS UNIT 2016-03 Yes [id number] Use TENS Univers ELECTRODES 1-22 unit at ity of (TENS UNITS 00:00: least 2 [place] as ELECTRODES) 00 times a Medic al 2X2 " Pads day as Branch needed for pain. TENS UNIT 2016-03 Yes [id number] Use TENS Univers ELECTRODES 1-22 unit at ity of (TENS UNITS 00:00: least 2 [place] as ELECTRODES) 00 times a Medic al 2X2 " Pads day as Branch needed for pain. TENS UNIT 2016- Yes [id number] Use TENS Univers ELECTRODES 1-22 unit at ity of (TENS UNITS 00:00: least 2 [place] as ELECTRODES) 00 times a Medic al 2X2 " Pads day as Branch needed for pain. TENS UNIT 2016- Yes [id number] Use TENS Univers ELECTRODES 1-22 unit at ity of (TENS UNITS 00:00: least 2 [place] as ELECTRODES) 00 times a Medic al 2X2 " Pads day as Branch needed for pain. TENS UNIT 2016-03 Yes [id number] Use TENS Univers ELECTRODES 1-22 unit at ity of (TENS UNITS 00:00: least 2 [place] as ELECTRODES) 00 times a Medic al 2X2 " Pads day as Branch needed for pain. TENS UNIT 2016-03 Yes [id number] Use TENS Univers ELECTRODES 1-22 unit at ity of (TENS UNITS 00:00: least 2 [place] as ELECTRODES) 00 times a Medic al 2X2 " Pads day as Branch needed for pain. TENS UNIT 2016-03 Yes [id number] Use TENS Univers ELECTRODES 1-22 unit at ity of (TENS UNITS 00:00: least 2 [place] as ELECTRODES) 00 times a Medic al 2X2 " Pads day as Branch needed for pain. TENS UNIT 2016-03 Yes [id number] Use TENS Univers ELECTRODES 1-22 unit at ity of (TENS UNITS 00:00: least 2 [place] as ELECTRODES) 00 times a Medic al 2X2 " Pads day as Branch needed for pain. TENS UNIT 2016-03 Yes [id number] Use TENS Univers ELECTRODES 1-22 unit at ity of (TENS UNITS 00:00: least 2 [place] as ELECTRODES) 00 times a Medic al 2X2 " Pads day as Branch needed for pain. TENS UNIT 2016-03 Yes [id number] Use TENS Univers ELECTRODES 1-22 unit at ity of (TENS UNITS 00:00: least 2 [place] as ELECTRODES) 00 times a Medic al 2X2 " Pads day as Branch needed for pain. TENS UNIT 2016-03 Yes [id number] Use TENS [facility] ELECTRODES 1-22 unit at ity of (TENS UNITS 00:00: least 2 [place] as ELECTRODES) 00 times a Medic al 2X2 " Pads day as Branch needed for pain. TENS UNIT 2016-03 Yes [id number] Use TENS Univers ELECTRODES 1-22 unit at ity of (TENS UNITS 00:00: least 2 [place] as ELECTRODES) 00 times a Medic al 2X2 " Pads day as Branch needed for pain. TENS UNIT 2016- Yes [id number] Use TENS Univers ELECTRODES 1-22 unit at ity of (TENS UNITS 00:00: least 2 [place] as ELECTRODES) 00 times a Medic al 2X2 " Pads day as Branch needed for pain. TENS UNIT 2016-03 Yes [id number] Use TENS Univers ELECTRODES 1-22 unit at ity of (TENS UNITS 00:00: least 2 [place] as ELECTRODES) 00 times a Medic al 2X2 " Pads day as Branch needed for pain. TENS UNIT 2016-03 Yes [id number] Use TENS Univers ELECTRODES 1-22 unit at ity of (TENS UNITS 00:00: least 2 [place] as ELECTRODES) 00 times a Medic al 2X2 " Pads day as Branch needed for pain. TENS UNIT 2016-03 Yes [id number] Use TENS Univers ELECTRODES 1-22 unit at ity of (TENS UNITS 00:00: least 2 [place] as ELECTRODES) 00 times a Medic al 2X2 " Pads day as Branch needed for pain. TENS UNIT 2016-03 Yes [id number] Use TENS Univers ELECTRODES 1-22 unit at ity of (TENS UNITS 00:00: least 2 [place] as ELECTRODES) 00 times a Medic al 2X2 " Pads day as Branch needed for pain. TENS UNIT 2016-03 Yes [id number] Use TENS Univers ELECTRODES 1-22 unit at ity of (TENS UNITS 00:00: least 2 [place] as ELECTRODES) 00 times a Medic al 2X2 " Pads day as Branch needed for pain. TENS UNIT 2016-03 Yes [id number] Use TENS Univers ELECTRODES 1-22 unit at ity of (TENS UNITS 00:00: least 2 [place] as ELECTRODES) 00 times a Medic al 2X2 " Pads day as Branch needed for pain. TENS UNIT 2016-03 Yes [id number] Use TENS Univers ELECTRODES 1-22 unit at ity of (TENS UNITS 00:00: least 2 [place] as ELECTRODES) 00 times a Medic al 2X2 " Pads day as Branch needed for pain. TENS UNIT 2016-03 Yes [id number] Use TENS Univers ELECTRODES 1-22 unit at ity of (TENS UNITS 00:00: least 2 [place] as ELECTRODES) 00 times a Medic al 2X2 " Pads day as Branch needed for pain. TENS UNIT 2016-03 Yes [id number] Use TENS Univers ELECTRODES 1-22 unit at ity of (TENS UNITS 00:00: least 2 [place] as ELECTRODES) 00 times a Medic al 2X2 " Pads day as Branch needed for pain. TENS UNIT 2016- Yes [id number] Use TENS Univers ELECTRODES 1-22 unit at ity of (TENS UNITS 00:00: least 2 [place] as ELECTRODES) 00 times a Medic al 2X2 " Pads day as Branch needed for pain. TENS UNIT 2016-03 Yes [id number] Use TENS Univers ELECTRODES 1-22 unit at ity of (TENS UNITS 00:00: least 2 [place] as ELECTRODES) 00 times a Medic al 2X2 " Pads day as Branch needed for pain. TENS UNIT 2016-03 Yes [id number] Use TENS Univers ELECTRODES 1-22 unit at ity of (TENS UNITS 00:00: least 2 [place] as ELECTRODES) 00 times a Medic al 2X2 " Pads day as Branch needed for pain. TENS UNIT 2016-03 Yes [id number] Use TENS Univers ELECTRODES 1-22 unit at ity of (TENS UNITS 00:00: least 2 [place] as ELECTRODES) 00 times a Medic al 2X2 " Pads day as Branch needed for pain. TENS UNIT 2016-03 Yes [id number] Use TENS Univers ELECTRODES 1-22 unit at ity of (TENS UNITS 00:00: least 2 [place] as ELECTRODES) 00 times a Medic al 2X2 " Pads day as Branch needed for pain. TENS UNIT 2016-03 Yes [id number] Use TENS [facility] ELECTRODES 1-22 unit at ity of (TENS UNITS 00:00: least 2 [place] as ELECTRODES) 00 times a Medic al 2X2 " Pads day as Branch needed for pain. TENS UNIT 2016-03 Yes [id number] Use TENS Univers ELECTRODES 1-22 unit at ity of (TENS UNITS 00:00: least 2 [place] as ELECTRODES) 00 times a Medic al 2X2 " Pads day as Branch needed for pain. TENS UNIT 2016-03 Yes [id number] Use TENS [facility] ELECTRODES 1-22 unit at ity of (TENS UNITS 00:00: least 2 [place] as ELECTRODES) 00 times a Medic al 2X2 " Pads day as Branch needed for pain. TENS UNIT 2016-03 Yes [id number] Use TENS Univers ELECTRODES 1-22 unit at ity of (TENS UNITS 00:00: least 2 [place] as ELECTRODES) 00 times a Medic al 2X2 " Pads day as Branch needed for pain. TENS UNIT 2016- Yes [id number] Use TENS Univers ELECTRODES 1-22 unit at ity of (TENS UNITS 00:00: least 2 [place] as ELECTRODES) 00 times a Medic al 2X2 " Pads day as Branch needed for pain. TENS UNIT 2016-03 Yes [id number] Use TENS Univers ELECTRODES 1-22 unit at ity of (TENS UNITS 00:00: least 2 [place] as ELECTRODES) 00 times a Medic al 2X2 " Pads day as Branch needed for pain. TENS UNIT 2016-03 Yes [id number] Use TENS Univers ELECTRODES 1-22 unit at ity of (TENS UNITS 00:00: least 2 [place] as ELECTRODES) 00 times a Medic al 2X2 " Pads day as Branch needed for pain. TENS UNIT 2016-03 Yes [id number] Use TENS Univers ELECTRODES 1-22 unit at ity of (TENS UNITS 00:00: least 2 [place] as ELECTRODES) 00 times a Medic al 2X2 " Pads day as Branch needed for pain. TENS UNIT 2016-03 Yes [id number] Use TENS Univers ELECTRODES 1-22 unit at ity of (TENS UNITS 00:00: least 2 [place] as ELECTRODES) 00 times a Medic al 2X2 " Pads day as Branch needed for pain. TENS UNIT 2016-03 Yes [id number] Use TENS Univers ELECTRODES 1-22 unit at ity of (TENS UNITS 00:00: least 2 [place] as ELECTRODES) 00 times a Medic al 2X2 " Pads day as Branch needed for pain. TENS UNIT 2016-03 Yes [id number] Use TENS Univers ELECTRODES 1-22 unit at ity of (TENS UNITS 00:00: least 2 [place] as ELECTRODES) 00 times a Medic al 2X2 " Pads day as Branch needed for pain. TENS UNIT 2016-03 Yes [id number] Use TENS Univers ELECTRODES 1-22 unit at ity of (TENS UNITS 00:00: least 2 [place] as ELECTRODES) 00 times a Medic al 2X2 " Pads day as Branch needed for pain. TENS UNIT 2016-03 Yes [id number] Use TENS Univers ELECTRODES 1-22 unit at ity of (TENS UNITS 00:00: least 2 [place] as ELECTRODES) 00 times a Medic al 2X2 " Pads day as Branch needed for pain. TENS UNIT 2016-03 Yes [id number] Use TENS Univers ELECTRODES 1-22 unit at ity of (TENS UNITS 00:00: least 2 [place] as ELECTRODES) 00 times a Medic al 2X2 " Pads day as Branch needed for pain. TENS UNIT 2016-03 Yes [id number] Use TENS Univers ELECTRODES 1-22 unit at ity of (TENS UNITS 00:00: least 2 [place] as ELECTRODES) 00 times a Medic al 2X2 " Pads day as Branch needed for pain. metformin Yes [id number] 500mg Take 1 Univers ER 500 mg 9-08 tablet by ity o f 24 hr 00:00: mouth [place] tablet 00 daily with Medical breakfast. Branch metformin Yes [id number] 500mg Take 1 Univers ER 500 mg 9-08 tablet by ity o f 24 hr 00:00: mouth [place] tablet 00 daily with Medical breakfast. Branch metformin Yes [id number] 500mg Take 1 Univers ER 500 mg 9-08 tablet by ity o f 24 hr 00:00: mouth [place] tablet 00 daily with Medical breakfast. Branch metformin Yes [id number] 500mg Take 1 Univers ER 500 mg 9-08 tablet by ity o f 24 hr 00:00: mouth [place] tablet 00 daily with Medical breakfast. Branch metformin Yes [id number] 500mg Take 1 Univers ER 500 mg 9-08 tablet by ity o f 24 hr 00:00: mouth [place] tablet 00 daily with Medical breakfast. Branch metformin Yes [id number] 500mg Take 1 Univers ER 500 mg 9-08 tablet by ity o f 24 hr 00:00: mouth [place] tablet 00 daily with Medical breakfast. Branch metformin Yes [id number] 500mg Take 1 Univers ER 500 mg 9-08 tablet by ity o f 24 hr 00:00: mouth [place] tablet 00 daily with Medical breakfast. Branch metformin Yes [id number] 500mg Take 1 Univers ER 500 mg 9-08 tablet by ity o f 24 hr 00:00: mouth [place] tablet 00 daily with Medical breakfast. Branch metformin Yes [id number] 500mg Take 1 Univers ER 500 mg 9-08 tablet by ity o f 24 hr 00:00: mouth [place] tablet 00 daily with Medical breakfast. [place] metformin Yes [id number] 500mg Take 1 Univers ER 500 mg 9-08 tablet by ity o f 24 hr 00:00: mouth [place] tablet 00 daily with Medical breakfast. [place] metformin Yes [id number] 500mg Take 1 Univers ER 500 mg 9-08 tablet by ity o f 24 hr 00:00: mouth [place] tablet 00 daily with Medical breakfast. Branch metformin Yes [id number] 500mg Take 1 Univers ER 500 mg 9-08 tablet by ity o f 24 hr 00:00: mouth [place] tablet 00 daily with Medical breakfast. [place] metformin Yes [id number] 500mg Take 1 Univers ER 500 mg 9-08 tablet by ity o f 24 hr 00:00: mouth [place] tablet 00 daily with Medical breakfast. [place] metformin Yes [id number] 500mg Take 1 Univers ER 500 mg 11-24 tablet by ity o f 24 hr 00:00: mouth [place] tablet 00 daily with Medical breakfast. Branch metformin 2020- No [id number] 500mg Take 1 Univers ER 500 mg 11-24 tablet by ity of 24 hr 00:00: 00:00 mouth [place] tablet 00 :00 daily with Medical breakfast. Branch metformin 2019- No [id number] 500mg Take 1 Univers ER 500 mg 11-24 tablet by ity of 24 hr 00:00: 00:00 mouth [place] tablet 00 :00 daily with Medical breakfast. Branch Vital Signs Vital Name Observation Time Observation Value Comments Source Systolic blood 2021-07-26 17:21:00 146 mm[Hg] [facility]iver [facility] Diastolic blood 2021-07-26 17:21:00 95 mm[Hg] [facility] Heart rate 2021-07-26 17:21:00 71 /min [facility] Respiratory rate 2021-07-26 17:21:00 18 /min [facility] in 2021-07-26 17:21:00 93 /min University of Arterial blood by [place] Pulse oximetry Branch Body temperature 2021-07-26 14:32:00 37.17 [facility] Body height 2021-07-26 14:32:00 175.3 cm [facility] Body weight 2021-07-26 14:32:00 122.471 kg [facility] BMI 2021-07-26 14:32:00 39.87 kg/m2 [facility] Systolic blood 2021-07-14 02:00:00 158 mm[Hg] Univer [facility]ity [facility] Diastolic blood 2021-07-14 02:00:00 94 mm[Hg] Unive rsity of [facility] Heart rate 2021-07-14 02:00:00 59 /min [facility] Respiratory rate 2021-07-14 02:00:00 16 /min [facility] in 2021-07-14 02:00:00 93 /min University of Arterial blood by [place] Medi cheryl Pulse oximetry Branch Body temperature 2021-07-13 23:38:00 36.44 Tereza [facility] [place] [facility] Body height 2021-07-13 23:38:00 175.3 cm [facility] [place] [facility] Body weight 2021-07-13 23:38:00 122.471 kg [facility] [place] [facility] BMI 2021-07-13 23:38:00 39.87 kg/m2 [facility] [place] [facility] Systolic blood 2021-06-08 18:00:00 118 mm[Hg] Univer sity of [facility] Diastolic blood 2021-06-08 18:00:00 80 mm[Hg] Unive rsity of [facility] Heart rate 2021-06-08 18:00:00 73 /min [facility] [place] [facility] Respiratory rate 2021-06-08 18:00:00 20 /min Univ [facility] [place] [facility] Oxygen saturation in 2021-06-08 17:00:00 95 /min University of Arterial blood by [facility] Pulse oximetry Branch Body temperature 2021-06-08 16:22:00 35.83 Tereza Univ [facility] [place] [facility] Body height 2021-06-08 16:19:00 175.3 cm [facility] [place] [facility] Body weight 2021-06-08 16:19:00 118.389 kg [facility] [place] [facility] BMI 2021-06-08 16:19:00 38.54 kg/m2 [facility] [place] [facility] Systolic blood 2021-06-07 13:13:00 123 mm[Hg] Univer sity of [facility] Diastolic blood 2021-06-07 13:13:00 72 mm[Hg] Unive rsity of [facility] Heart rate 2021-06-07 13:13:00 79 /min [facility] [place] [facility] Body temperature 2021-06-07 13:13:00 36.89 Tereza [facility] [place] [facility] Respiratory rate 2021-06-07 13:13:00 18 /min Univ [facility] [place] [facility] Body height 2021-06-07 13:13:00 175.3 cm [facility] [place] [facility] Body weight 2021-06-07 13:13:00 118.389 kg [facility] [place] [facility] BMI 2021-06-07 13:13:00 38.54 kg/m2 [facility] [place] [facility] Oxygen saturation in 2021-06-07 13:13:00 96 /min University of Arterial blood by [facility] Pulse oximetry Branch Systolic blood 2019 16:08:00 122 mm[Hg] Univer sity of [facility] [place] [facility] Diastolic blood 2019 16:08:00 79 mm[Hg] Unive rsity of [facility] Heart rate 2019 16:08:00 59 /min [facility] [place] [facility] Body temperature 2019 16:08:00 37.06 Tereza [facility] [place] [facility] Respiratory rate 2019 16:08:00 18 /min Univ [facility] [place] [facility] Body height 2019 16:08:00 175.3 cm [facility] [place] [facility] Body weight 2019 16:08:00 120.203 kg [facility] [place] [facility] BMI 2019 16:08:00 39.13 kg/m2 [facility] [place] [facility] Oxygen saturation in 2019 16:08:00 96 /min University of Arterial blood by [facility] Pulse oximetry Branch Systolic blood 2019-05-22 20:44:00 115 mm[Hg] Univer sity of pressure [facility] Branch Diastolic blood 2019-05-22 20:44:00 71 mm[Hg] Unive rsity of [facility] [place] [facility] Heart rate 2019-05-22 20:44:00 78 /min [facility] [place] [facility] Body temperature 2019-05-22 20:44:00 36.22 Tereza [facility] [place] [facility] Respiratory rate 2019-05-22 20:44:00 18 /min Univ [facility] [place] [facility] Body height 2019-05-22 20:44:00 175.3 cm [facility] [place] [facility] Body weight 2019-05-22 20:44:00 116.847 kg [facility] [place] [facility] BMI 2019-05-22 20:44:00 38.04 kg/m2 [facility] [place] [facility] Oxygen saturation in 2019-05-22 20:44:00 96 /min University of Arterial blood by [facility] Pulse oximetry Branch Systolic blood 2019-04-08 21:46:00 123 mm[Hg] Univer sity of [facility] [place] [facility] Diastolic blood 2019-04-08 21:46:00 58 mm[Hg] Unive rsity of [facility] [place] [facility] Heart rate 2019-04-08 21:46:00 75 /min [facility] [place] [facility] Respiratory rate 2019-04-08 21:46:00 16 /min Univ [facility] [place] [facility] Oxygen saturation in 2019-04-08 21:46:00 91 /min [facility] Arterial blood by [place] [employer] cheryl Pulse oximetry Branch Body temperature 2019-04-08 19:49:00 38.39 Tereza [facility] [place] [facility] Body weight 2019-04-08 19:00:00 127.007 kg [facility] [place] [facility] BMI 2019-04-08 19:00:00 41.35 kg/m2 [facility] [place] [facility] Systolic blood 2019-04-01 16:52:00 117 mm[Hg] Univer sity of [facility] [place] [facility] Diastolic blood 2019-04-01 16:52:00 71 mm[Hg] Unive rsity of [facility] Heart rate 2019-04-01 16:52:00 80 /min [facility] [place] [facility] Body temperature 2019-04-01 16:52:00 36.06 Tereza [facility] [place] [facility] Respiratory rate 2019-04-01 16:52:00 18 /min Univ [facility] [place] [facility] Body height 2019-04-01 16:52:00 175.3 cm [facility] [place] [facility] Body weight 2019-04-01 16:52:00 127.007 kg [facility] [place] [facility] BMI 2019-04-01 16:52:00 41.35 kg/m2 [facility] [place] [facility] Oxygen saturation in 2019-04-01 16:52:00 96 /min University of Arterial blood by [facility] Pulse oximetry Branch Systolic blood 2018-11-12 19:52:00 125 mm[Hg] Univer [facility]ity of [facility] [place] [facility] Diastolic blood 2018-11-12 19:52:00 83 mm[Hg] Unive rsity of [facility] Heart rate 2018-11-12 19:52:00 80 /min [facility] [place] [facility] Body temperature 2018-11-12 19:52:00 36.61 Tereza [facility] [place] [facility] Respiratory rate 2018-11-12 19:52:00 18 /min [facility] Oxygen saturation in 2018-11-12 19:52:00 95 /min University Arterial blood by [facility] Pulse oximetry Branch Procedures Procedure Date / Time Performing Clinician Source Performed CT CERVICAL SPINE WO 2021-07-26 17:16:00 Angus Dee [facility] CONTRAST Medical Branch CT HEAD WO CONTRAST 2021-07-26 17:16:00 Angus Dee [facility] XR CHEST 1 VW 2021-07-26 16:42:27 Singer [facility] [place] [facility] XR FOREARM 2 VW LEFT 2021-07-26 16:42:27 Singer Angus [facility] XR PELVIS <3 VW 2021-07-26 16:42:27 Singer [facility] XR SHOULDER <2 VW LEFT 2021-07-26 16:42:27 [facility]3 VW 2021-07-14 01:07:42 GreerElaina gonzalez [facility] XR SHOULDER 2+ VW RIGHT 2021-07-14 01:07:42 GreerElaina gonzalez [facility] URINALYSIS 2021-06-08 18:31:00 Yazan Knight [facility] URINE DRUG (IMMUNOASSAY) 2021-06-08 18:31:00 Yazan Knight [facility] DRUG Medical [facility] [place] SCREEN W/O REFLEX CT HEAD WO CONTRAST 2021-06-08 17:06:54 Yazan Knight [facility] XR CHEST 1 VW 2021-06-08 17:03:00 Yazan Knight [facility] AC PANEL 20 + LACTIC 2021-06-08 16:33:00 Yazan Knight [facility] ACID [facility] COVID-19 (ID NOW RAPID 2021-06-08 16:33:00 Yazan Knight [facility] TESTING) [facility] TROPONIN I 2021-06-08 16:24:00 Yazan Knight [facility] COMP. METABOLIC PANEL 2021-06-08 16:24:00 Yazan Knight [facility] ([id number]) Medical Branch ETHANOL 2021-06-08 16:24:00 Eugene [facility] PROTHROMBIN TIME / INR 2021-06-08 16:24:00 Yazan Knight [facility] ACTIVATED PARTIAL 2021-06-08 16:24:00 Yazan Knight [facility] THRMPLAS TERESA [facility] N-TERMINAL PRO-BNP 2021-06-08 16:24:00 Yazan Knight [facility] CBC WITH DIFF 2021-06-08 16:23:00 Yazan Knight [facility] CT HEAD WO CONTRAST 2021-06-07 15:37:56 Yazan Knight [facility] XR KNEE 3 VW LEFT 2021-06-07 15:19:[address] [facility] XR HIPS 2 VW LEFT 2021-06-07 15:04:[address] [facility] XR KUB 2021-06-07 15:00:21 Eugene Yazan [facility] XR RIBS 4+ VW LEFT 2021-06-07 14:54:58 Yazan Knight [facility] XR CHEST 1 VW 2021-06-07 14:40:39 Eugene [facility] DME/SUPPLY JUSTIFICATION 2019-09-08 05:01:00 Doctor Unassigned, No [facility] EXTERNAL PROVIDER - ADC 2019-07-03 05:01:00 Doctor Unassigned, N o [facility] DME/SUPPLY JUSTIFICATION 2019-05-28 05:01:00 Doctor Unassigned, No [facility] SLEEP STUDY DATA REPORT 2019-05-20 06:01:00 Doctor Unassigned, N o [facility] SLEEP STUDY DATA REPORT 2019-04-19 06:01:00 Doctor Unassigned, N o [facility] CT HEAD WO CONTRAST 2019-04-08 20:29:23 [facility] ONLY - 2019-04-08 19:57:00 Mary Fleming [facility] INFLUENZA A & B DIRECT Medical [place] ANTIGEN ASSIGNMENT OF BENEFITS 2019-04-01 16:37:44 Doctor Unassigned, No [facility] Name Medical Branch AUTHORIZATION FOR 2018-10-21 05:01:00 Doctor Unassigned, No [facility] RELEASE OF [facility] Name Medical Branch Encounters Start End Encounter Admission Attending Care Care Encounter Source Date/Time Date/Time Type Type Clinicians Facility Department ID 2021-08-01 Outpatient [facility] [id number] [place] 08:55:08 TAYLOR [id number] [facility] 2021-04-14 Outpatient 3 [id number] ENCPL CVA ENCPL 12:29:58 0713 2021-04-14 Outpatient 3 [id number] ENCPL REF ENCPL 12:29:39 0712 2021-04-13 Outpatient Lay, STLMLC STLMLC [id number] [place] 13:34:27 [facility] [address] [facility] 2021-04-13 Outpatient Lay, STLMLC STLMLC [id number] Common 12:32:17 [facility] [address] [facility] 2021-04-13 Outpatient Lay, STLMLC STLMLC [id number] Common 12:29:27 [facility] [address] [facility] 2021-04-13 Outpatient Lay, STLMLC STLMLC [id number] Common 12:14:47 [facility] [address] [facility] 2021-04-13 Outpatient Lay, STLMLC STLMLC [id number] Common 12:12:29 [facility] [address] [facility] 2021-04-13 Outpatient Lay, STLMLC STLMLC [id number] Common 12:08:54 [facility] [address] [facility] 2021-04-13 Outpatient Lay, STLMLC STLMLC [id number] Common 12:05:57 [facility] [address] [facility] 2021-04-13 Outpatient Lay, STLMLC STLMLC [id number] Common 12:05:29 [facility] [address] [facility] 2021-04-13 Outpatient STLMLC STLMLC [id number] Common 12:01:10 [address] [facility] 2019-02-07 Inpatient MHTW MHTW [id number] MHT W 17:09:56 2019-02-04 Inpatient [facility] MED [id number] MHS W 02:22:00 2021-08-01 2021-08-01 Office URVASHI Craig 6414 [id number] [place] 10:15:00 11:56:12 Visit Taylor LOPEZ [id number] [facility] [id number] 2021-07-26 2021-07-26 Emergency X [facility] ERT [id number] Univers 09:29:00 13:18:00 ANGUS butts [facility] 2021-07-26 2021-07-26 Emergency [facility] [id number] Univers 09:29:00 13:18:00 Angus SAMS [id number] i ty of [place] [id number] [facility] [id number] [address] 2021-07-13 2021-07-13 Emergency X [facility] ERT [id number] Univers 18:34:00 21:46:00 ELAINA butts [facility] 2021-07-13 2021-07-13 Emergency [facility] [id number] Univers 18:34:00 21:46:00 Elaina SAMS [id number] i ty of [place] [id number] [facility] [id number] [place] [address] Branch 2021-07-05 2021-07-05 Outpatient [facility] [id number] 00:34:00 00:34:[id number] [facility] 2021-07-04 2021-07-04 Outpatient [facility] [id number] 19:16:00 19:16:[id number] [facility] 2021-06-26 2021-06-26 Outpatient [facility] [id number] 00:24:00 00:24:[id number] [facility] 2021-06-22 2021-06-22 Outpatient [facility] [id number] 01:14:00 01:14:[id number] [facility] 2021-06-08 2021-06-08 Emergency X [facility] ERT [id number] Univers 11:15:00 15:55:00 YAZAN [facility] 2021-06-08 2021-06-08 [facility] [id number] Univers 11:15:00 15:55:00 Yazan SAMS [id number] i ty of [place] [id number] [facility] [id number] [address] 2021-06-07 2021-06-07 Emergency [facility] [id number] Univers 08:16:00 12:53:00 [facility] 2021-06-07 2021-06-07 [facility] [id number] Univers 08:16:00 12:53:00 Yazan GRIFFITHURSULA [id number] i ty of [place] [id number] [facility] [id number] [address] 2021-06-06 2021-06-06 Telephone Konrad Field 6400 [id number] [place] 00:00:00 00:00:00 Marcelino LOPEZ [id number] Health [id number] [id number] 2021-04-28 2021-04-28 Outpatient [facility] [id number] 18:14:00 18:14:[id number] [facility] 2021-04-22 2021-04-22 Outpatient [facility] [id number] 00:32:00 00:32:[id number] [facility] 2021-04-19 2021-04-19 Outpatient [facility] [id number] 00:59:00 00:59:[id number] [facility] 2021-04-18 2021-04-18 Outpatient [facility] [id number] 18:02:00 18:02:[id number] [facility] 2021-01-20 2021-01-20 ambulatory STLMLC STLMLC [id number] Common 00:00:00 00:00:00 [facility] 2020-11-08 2020-11-08 EXT MHH OP PETER Walker MSRDP [id number] [place] 00:00:00 00:00:00 [facility] LOCATION [id number] [place] [id number] [id number] 2020-08-26 2020-08-26 Outpatient STLMLC STLMLC [id number] Common 00:00:00 00:00:00 [facility] 2020-06-07 2020-06-07 Outpatient STLMLC STLMLC [id number] Common 00:00:00 00:00:00 [facility] 2020-05-10 2020-05-10 Outpatient STLMLC STLMLC [id number] Common 00:00:00 00:00:00 [facility] 2020-04-28 2020-04-28 Outpatient STLMLC STLMLC [id number] Common 00:00:00 00:00:00 [facility] 2020-04-27 2020-04-27 Outpatient STLMLC STLMLC [id number] Common 00:00:00 00:00:00 [facility] 2020-04-22 2020-04-22 Outpatient STLMLC STLMLC [id number] Common 00:00:00 00:00:00 [facility] 2020-04-06 2020-04-06 Outpatient STLMLC STLMLC [id number] Common 00:00:00 00:00:00 [facility] 2020-04-02 2020-04-02 Outpatient STLMLC STLMLC [id number] Common 00:00:00 00:00:00 [facility] 2020-03-29 2020-03-29 Outpatient STLMLC STLMLC [id number] Common 00:00:00 00:00:00 [facility] 2020-03-25 2020-03-25 Outpatient STLMLC STLMLC [id number] Common 00:00:00 00:00:00 [facility] 2020-03-11 2020-03-11 Outpatient STLMLC STLMLC [id number] Common 00:00:00 00:00:00 [facility] 2020-03-09 2020-03-09 Outpatient STLMLC STLMLC [id number] Common 00:00:00 00:00:00 [facility] 2020-03-09 2020-03-09 Outpatient STLMLC STLMLC [id number] Common 00:00:00 00:00:00 [facility] 2020-03-09 2020-03-09 Outpatient STLMLC STLMLC [id number] Common 00:00:00 00:00:00 [facility] 2020-02-26 2020-02-26 Outpatient STLMLC STLMLC [id number] Common 00:00:00 00:00:00 [facility] 2020-02-26 2020-02-26 Outpatient STLMLC STLMLC [id number] Common 00:00:00 00:00:00 [facility] 2020-02-26 2020-02-26 Outpatient STLMLC STLMLC [id number] Common 00:00:00 00:00:00 [facility] 2020-02-16 2020-02-16 Outpatient STLMLC STLMLC [id number] Common 00:00:00 00:00:00 [facility] 2020-02-16 2020-02-16 Outpatient STLMLC STLMLC [id number] Common 00:00:00 00:00:00 [facility] 2020-01-23 2020-01-23 Outpatient STLMLC STLMLC [id number] Common 00:00:00 00:00:00 [facility] 2020-01-22 2020-01-22 Outpatient STLMLC STLMLC [id number] Common 00:00:00 00:00:00 [facility] 2020-01-19 2020-01-19 Outpatient STLMLC STLC [id number] Common 00:00:00 00:00:00 [facility] 2020-01-19 2020-01-19 Outpatient STLMLC STLMLC [id number] Common 00:00:00 00:00:00 [facility] 2019-12-30 2019-12-30 Telephone [facility] [id number] Univers 00:00:00 00:00:00 Coleen Sams [id number] [id number] [id number] Wy dic[address] 2019-12-08 2019-12-08 Telephone [facility] [id number] Univers 00:00:00 00:00:00 Coleen Sams [id number] [id number] [id number] Wy dic[address] 2019-10-21 2019-10-21 Telephone [facility] [id number] 00:00:00 00:00:00 Coleen Sams [id number] [place] [id number] Professio [id number] [address] 2019-10-21 2019-10-21 Telephone [facility] [id number] Univers 00:00:00 00:00:00 Coleen Sams [id number] [id number] [id number] Wy dic[address] 2019-09-08 2019-09-08 Orders Doctor GRANADOS [id number] 00:00:00 00:00:00 Only Unassigned, SALINAS [id number] [place] [facility] [id number] 2019-09-08 2019-09-08 Orders Doctor GRANADOS [id number] Univers 00:00:00 00:00:00 Only Unassigned, SALINAS [id number] [facility] [id number] [place] as [id number] [address] 2019-08-20 2019-08-20 Outpatient R MARIA ESTHER OMER [facility] [id number] Univers 14:00:00 14:00:00 OMER MAYO 2005 03 ity [facility] 2019-08-13 2019-08-13 Outpatient R MARIA ESTHER LORIMendoza [facility] [id number] Univers 14:30:00 14:30:00 OMER MAYO 2004 27 ity [facility] 2019-08-13 2019-08-13 Outpatient R LO MAYORIMendoza [facility] [id number] Univers 14:30:00 14:30:00 OMER MAYO [facility] 2019-08-13 2019-08-13 Office [facility] [id number] 08:35:52 09:05:52 [facility] [facility] T Amaya 350.1.13.10 [place] 4.2.7.2.686 Professio [phone] [address] 2019-08-13 2019-08-13 Office [facility] 1.2.031.185 [id number] [facility] 08:35:52 09:05:52 [facility] Luis Sams 350.1.13.10 ity [facility] [place] [phone] [facility] 085 [facility] 2019-08-12 2019-08-12 Telephone [facility] 1.2.840.114 [id number] Univers 00:00:00 00:00:00 Coleen Sams 350.1.13.10 i [place] [phone] [facility] 044 [facility] 2019-07-22 2019-07-22 [facility] [id number] 38Q-20 Univers 10:20:00 10:20:00 COLEEN ity [facility] 2019-07-22 2019-07-22 Outpatient R BRAIN [facility] [id number] Univers 10:20:00 10:20:00 COLEEN ity [facility] 2019-07-18 2019-07-18 Outpatient R BRAIN [facility] 7357 38Q-20 Univers 16:00:00 16:00:00 COLEEN ity [facility] 2019-07-09 2019-07-09 Telephone [facility] 1.2.840.114 [id number] Univers 00:00:00 00:00:00 Coleen Sams 350.1.13.10 i [place] [phone] Wy dic[address] 2019-07-07 2019-07-07 Telephone [facility] 1.2.840.114 7 [id number] Univers 00:00:00 00:00:00 Coleen Sams 350.1.13.10 i [place] [phone] Wy dic[address] 2019-07-03 2019-07-03 Orders Doctor DARWIN 1.2.840.114 [id number] Univers 00:00:00 00:00:00 Only Unassigned, SALINAS 350.1.13.10 ity of [place] [facility] 4.2.7.2.686 [place] as [phone] [address] 2019-07-03 2019-07-03 Telephone [facility] 1.2.840.114 7 [id number] Univers 00:00:00 00:00:00 Coleen Sams 350.1.13.10 i [place] [phone] Wy dical nal [address] [place] [address] 2019-06-30 2019-06-30 Telephone [facility] 1.2.840.114 7 [id number] Univers 00:00:00 00:00:00 Coleen Sams 350.1.13.10 i [place] [phone] [address] 2019-06-30 2019-06-30 Telephone [facility] 1.2.840.114 7 [id number] Univers 00:00:00 00:00:00 Coleen Sams 350.1.13.10 i [place] [phone] [address] 2019-06-25 2019-06-25 Telephone [facility] 1.2.840.114 [id number] Univers 00:00:00 00:00:00 Coleen Sams 350.1.13.10 i [place] [phone] [address] 2019 2019 Urgent Provider, [facility] 1.2.840.114 [id number] Univers 10:50:50 11:57:31 Care Coleen Lovett 350.1.13.10 ity of [place] 4.2.7.2.686 [place] Professio [phone] [address] Office Building One 2019 2019 Outpatient R [facility] [id number] -[id number] Univers 11:00:00 11:00:00 [id number] [facility] 2019 2019 Outpatient R [facility] [id number] Univers 11:00:00 11:00:00 COLEEN bob [facility] 2019-06-19 2019-06-19 Nurse DARWIN Garcia 1.2.840.114 [id number] Univers 00:00:00 00:00:00 Triage Michelle Schaeffer SALINAS 350.1.13.10 i ty of [facility] 4.2.7.2.686 [place] as [phone] [address] 2019-06-13 2019-06-13 Telephone [facility] 1.2.840.114 [id number] Univers 00:00:00 00:00:00 Coleen Sams 350.1.13.10 i [place] [phone] [address] 2019-06-05 2019-06-05 Outpatient EDTRENT, [facility] [id number] 38Q-20 Univers 12:40:00 12:40:00 COLEEN [id number] beckie [facility] 2019-06-05 2019-06-05 [facility] [id number] Univers 12:40:00 12:40:00 COLEEN beckie [facility] 2019-06-04 2019-06-04 Telephone [facility] 1.2.840.114 [id number] Univers 00:00:00 00:00:00 Coleen Sams 350.1.13.10 i [place] [phone] [address] 2019-06-04 2019-06-04 [facility] 1.2.840.114 7 [id number] Univers 00:00:00 00:00:00 Coleen Sams 350.1.13.10 i ty [place] [phone] [address] 2019-06-02 2019-06-02 [facility] 1.2.840.114 7 [id number] Univers 00:00:00 00:00:00 Coleen Sams 350.1.13.10 i [place].2.[place] [phone] [address] 2019-05-30 2019-05-30 [facility] 1.2.840.114 7 [id number] Univers 00:00:00 00:00:00 Coleen Sams 350.1.13.10 i [place].2.[place] [phone] [address] 2019-05-30 2019-05-30 Telephone [facility] 1.2.840.114 7 [id number] Univers 00:00:00 00:00:00 Coleen Sams 350.1.13.10 i [place].2.[place] [phone] Wy dical nal [address] [place] [address] 2019-05-29 2019-05-29 Refill [facility] 1.2.840.114 [id number] Univers 00:00:00 00:00:00 Coleen Sams 350.1.13.10 i [place].2.[place] [phone] [address] 2019-05-28 2019-05-28 Telephone [facility] 1.2.840.114 7 [id number] Univers 00:00:00 00:00:00 Coleen Sams 350.1.13.10 i ty [place].2.[place] [phone] [address] 2019-05-28 2019-05-28 Orders Doctor DARWIN 1.2.840.114 [id number] Univers 00:00:00 00:00:00 Only Unassigned, SALINAS 350.1.13.10 ity of [place] [facility] 4.2.7.2.686 [place] as [phone] [address] 2019-05-27 2019-05-27 Telephone [facility] 1.2.840.114 7 [id number] Univers 00:00:00 00:00:00 Coleen Sams 350.1.13.10 i [place].2.[place] [phone] Wy dic[address] 2019-05-23 2019-05-23 Telephone [facility] 1.2.840.114 7 [id number] Univers 00:00:00 00:00:00 Coleen Sams 350.1.13.10 i [place].2.[place] [phone] Wy dic[address] 2019-05-22 2019-05-22 Senior Application Programmer 2, Adc Lab [facility] 1.2.840.114 [id number] Univers 16:02:32 16:17:32 Visit Coleen Lovett 350.1.13.10 ity of [place].2.[place] [phone] Wy dicvt nal 353 [facility] 2019-05-22 2019-05-22 [facility] 1.2.840.114 [id number] Univers 14:19:49 15:54:29 Visit Coleen Sams 350.1.13.10 i [place].2.[place] [phone] [facility] 044 [facility] 2019-05-22 2019-05-22 [facility] [id number] 38Q-20 Univers 14:20:00 14:20:00 COLEEN [id number] [facility] 2019-05-22 2019-05-22 Outpatient R [facility] [id number] Univers 14:20:00 14:20:00 COLEEN [facility] 2019-05-22 2019-05-22 Telephone [facility] 1..840.114 7 [id number] Univers 00:00:00 00:00:00 Coleen Sams 350.1.13.10 i ty [place] 4[place].2.[place] [phone] [facility] 044 [facility] 2019-05-22 2019-05-22 [facility]phone [facility] ..840.114 [id number] Univers 00:00:00 00:00:00 Omer Sams 350.1.13.10 it[place] of [place].2.[place] [phone] [facility] 085 [facility] 2019-05-20 2019-05-20 Outpatient R [facility] [id number] Univers 20:00:00 20:00:00 [id number] ity [facility] 2019-05-20 2019-05-20 Outpatient R OMER MAYO [facility] [id number] Univers 20:00:00 20:00:00 [facility] 2019-05-20 2019-05-20 Senior Application Programmer 1, [facility] Sleep Lab Bed [facility] 1. 2.840.114 [id number] Univers 13:52:54 16:22:54 Visit Theolisandra Omer Sams 350.1.13. 10 ity of [place] 4.2.7.2.686 [place] [phone] [facility] [address] 2019-05-20 2019-05-20 [facility]phone [facility] 1.2.840.114 [id number] Univers 00:00:00 00:00:00 Omer Sams 350.1.13.10 it[place] of [place].2.[place] [phone] Wy dical nal 085 [facility] 2019-05-20 2019-05-20 Orders Doctor DARWIN 1.2.840.114 [id number] [facility] 00:00:00 00:00:00 Only Unassigned, SALINAS 350.1.13.10 ity of [place] [facility] 4.2.7.2.686 [place] as [phone] [facility] 00[address] [place] 2019-05-07 2019-05-07 Telephone [facility] 1.2.835.963 [id number] Univers 00:00:00 00:00:00 Mer Sams 350.1.13.10 i [place].2.[place] [phone] Wy dical nal 059 [facility] 2019-05-06 2019-05-[address] [facility] 1.2.840.114 7 [id number] Univers 00:00:00 00:00:00 Coleen Sams 350.1.13.10 i [place].2.[place] [phone] Wy dical nal 044 [facility] 2019-04-25 2019-04-25 [facility] 1.2.840.114 [id number] Univers 00:00:00 00:00:00 Coleen Sams 350.1.13.10 i [place] 4[place].2.[place] [phone] Wy dical nal 044 [facility] 2019-04-19 2019-04-19 Orders Doctor GRANADOS 1.2.840.114 [id number] Univers 00:00:00 00:00:00 Only Unassigned, SALINAS 350.1.13.10 [facility] 4.2.7.2.686 [place] [phone] [facility] 00[address] [place] 2019-04-16 2019-04-16 Outpatient R OMER MAYO [facility] [id number] Univers 15:00:00 15:00:00 OMER MAYO ity of [facility] 2019-04-16 2019-04-16 Telephone [facility] 1.2.840.114 [id number] Univers 00:00:00 00:00:00 Coleen Sams 350.1.13.10 i [place]2.[place] [phone] [address] 2019-04-16 2019-04-16 Telephone [facility] 1.2.840.114 7 [id number] Univers 00:00:00 00:00:00 Coleen Sams 350.1.13.10 i [place] 4[place]2.7.2.[place] [phone] [address] 2019-04-11 2019-04-11 Telephone [facility] 1.2.840.114 7 [id number] Univers 00:00:00 00:00:00 Coleen Mann 350.1.13.10 it y of [place] 4.2.7.2.686 [place] Profess[place] [phone] [address] Office Building [facility] 2019-04-08 2019-04-08 Emergency [facility] 1.2.840.114 [id number] Univers 13:31:16 16:10:00 Mary Sams 350.1.13.10 ity of [place] 4[place]2.7.2.686 [place] [phone] [facility] 084 [place] 2019-04-08 2019-04-08 Telephone [facility] 1.2.840.114 [id number] Univers 00:00:00 00:00:00 Coleen Sams 350.1.13.10 i [place].2.[place] [phone] Wy dical nal 044 [facility] 2019-04-01 2019-04-01 Senior Application Programmer Ester Saha Lab Main [facility] 1.2.8 40.114 [id number] [facility] 13:02:30 13:17:30 Visit Coleen Lovett 350.1.13.10 it[place] of [place].2.[place] [phone] Wy dicvt nal 353 [facility] 2019-04-01 2019-04-01 Office Brain [facility] 1.2.840.114 [id number] [facility] 10:41:54 12:02:13 Visit Coleen Sams 350.1.13.10 i ty [place] 4[place].2.[place] [phone] Wy dical nal 044 [facility] 2019-04-01 2019-04-01 Orders Doctor DARWIN 1.2.840.114 [id number] Univers 00:00:00 00:00:00 Only Unassigned, SALINAS 350.1.13.10 ity of [place] [facility] 4.2.7.2.686 [place] as [phone] [address] 2018-11-27 2018-11-27 Telephone Basil Singer [facility] 1.2.840.114 [id number] Univers 00:00:00 00:00:00 C [place] 350.1.13.10 i ty [place] 4[place].7.2.[place] [phone] Wy dical nal 044 [facility] 2018-11-12 2018-11-21 Office Basil Singer [facility] 1.2.840.114 [id number] [facility] 14:40:43 08:13:38 Visit C [place] 350.1.13.10 i [place] 4[place]2.7.2.[place] [phone] Wy dical nal 044 [facility] 2018-11-13 2018-11-13 Telephone Basil Singer [facility] 1.2.840.114 [id number] Univers 00:00:00 00:00:00 C [place] 350.1.13.10 i [place] 4[place]2.7.2.[place] [phone] Wy dical nal 044 [facility] 2018-10-21 2018-10-21 Orders Doctor DARWIN 1.2.840.114 [id number] Univers 00:00:00 00:00:00 Only Unassigned, SALINAS 350.1.13.10 ity of [place] [facility] 4.2.7.2.686 [place] as [phone] [address] 2018-10-14 2018-10-14 Telephone Basil Singer [facility] 1.2.840.114 [id number] Univers 00:00:00 00:00:00 C [place] 350.1.13.10 i [place] 4[place].7.2.[place] [phone] Wy dical nal 044 [facility] 2018-10-09 2018-10-09 Telephone Basil Singer [facility] 1.2.840.114 [id number] Univers 00:00:00 00:00:00 C [place] 350.1.13.10 i [place] 4[place]2.7.2.[place] [phone] Wy dical nal 044 [facility] 2018-09-24 2018-09-24 Outpatient U [facility] 9[address] [place] 00:31:00 00:31:00 mendoza Benz [facility] 2018-08-02 2018-08-04 Inpatient U DIEGO, [facility] [address] [facility] 20:29:00 15:20:00 NOURELDIN Results Test Description [...] . DYAN (test code = DYAN) The [facility] patient population mean normal value for aPTT is 30 seconds. Lab Interpretation (test Normal code = 85823-6) [facility] / [id number] 17:13:18 Test Item Value Reference Range Interpretation [...] tions. Lab Interpretation (test Normal code = 22848-0) [facility] HospitalTR[facility] [id number] 16:59:37 Test Item Value Reference Interpretation Comments Range TROPONIN I (test 0.003 ng/mL See_Comment [Automated code = 6001714388) message] The system which generated this result [...] biotin. Lab Interpretation Normal (test code = 44865-2) [facility] HospitalN-TERMINAL [id number] 16:56:14 Test Item Value Reference Range Interpretation Comments NT-proBNP (test code 37 pg/mL See_Comment [Autom ated = 0706962903) message] The system which generated this result transmitted reference range : <=125. The reference range was not used to interpret this result as normal/abnormal . DYAN (test code = DYAN) Biotin has been reported to cause a negative bias, interpret results relative to patient's use of biotin. Lab Interpretation Normal (test code = 97894-5) [facility] HospitalETHANOL2022-03-23 16:51:35 Test Item Value Reference Range Interpretation Comments ALCOHOL (test code = <10 mg/dL 8809214775) DYAN (test code = DYAN) <10 Kuiaatxo75-505 Toxic>100 Depression of PALM GATHERER>400 Fatalities Reported [facility]. METABOLIC PANEL (72286)2021-06-08 16:47:52 Test Item Value Reference Range Interpretation Comments NA (test code = 143 mmol/L 135-145 3970661270) K (test code = 4.6 mmol/L 3.5-5.0 1325019938) CL (test code = 103 mmol/L 98-108 6379209991) CO2 TOTAL (test code = 32 mmol/L 23-31 H 2733265707) AGAP (test code = 2-16 2720464937) BUN (test code = 10 mg/dL 7-23 4245908089) GLUCOSE (test code = 134 mg/dL 70-110 H 1016110711) CREATININE (test code = 0.62 mg/dL 0.60-1.25 2544982785) TOTAL BILI (test code = 0.5 mg/dL 0.1-1.6 2210214766) CALCIUM (test code = 8.4 mg/dL 8.6-10.6 L 6348891134) T PROTEIN (test code = 7.4 g/dL 6.3-8.2 2040983969) ALBUMIN (test code = 4.1 g/dL 3.5-5.0 4115553763) ALK PHOS (test code = 120 U/L 34-122 5320184858) ALTv (test code = 30 U/L 5-50 2-6) AST(SGOT) (test code = 31 U/L 13-40 2056217103) eGFR (test code = mL/min/1.73m2 4267441913) DYAN (test code = DYAN) Association of [...] tests). Lab Interpretation Abnormal (test code = 85945-8) [facility] WITH [id number] 16:37:14 Test Item Value Reference Range Interpretation [...] RDW-SD (test code = 49.5 fL 38.5-51.6 30804-2) RDW-CV (test code = 17.2 % 12.1-15.4 H 788-0) PLT (test code = See_Comment H [Automated 777-3) message] The sy stem which generated this result transmitted reference range : 150 - 328 10*3/ ?L. The reference r matthieu was not used to interpret this result as normal/abnormal . MPV (test code = 10.5 fL 9.8-13.0 14990-0) NRBC/100 WBC (test See_Comment [Automat ed code = 9340380131) message] The system which generated this result transmitted reference range : 0.0 - 10.0 /100 WBCs. The refer ence range was not u sed to interpret th is result as normal/abnormal . NRBC x10^3 (test code <0.01 See_Comment [Auto mated = 2237433960) message] The s ystem which generated this result transmitted reference range : 10*3/?L. The reference range was not used to interpret this result as normal/abnormal . GRAN MAT (NEUT) % 59.6 % (test code = 770-8) IMM GRAN % (test code 2.00 % = 0525099369) LYMPH % (test code = 24.1 % 736-9) MONO % (test code = 10.1 % 5905-5) EOS % (test code = 3.7 % 713-8) BASO % (test code = 0.5 % 706-2) GRAN MAT x10^3(ANC) 8.00 10*3/uL 1.99-6.95 H (test code = 8867447570) IMM GRAN x10^3 (test 0.27 10*3/uL 0.00-0.06 H code = 9258160125) LYMPH x10^3 (test code 3.23 10*3/uL 1.09-3.23 = 731-0) MONO x10^3 (test code 1.35 10*3/uL 0.36-1.02 H = 742-7) EOS x10^3 (test code = 0.50 10*3/uL 0.06-0.53 711-2) BASO x10^3 (test code 0.07 10*3/uL 0.01-0.09 = 704-7) Lab Interpretation Abnormal (test code = 53558-1) [facility]ADC,CLC OR LCC ONLY - INFLUENZA A & B DIRECT [id number] 20:56:00 Test Item Value Reference Range Interpretation Comments Influenza A (test code = 79166-4) Negative Negative Influenza B (test code = 05133-3) Negative Negative Lab Interpretation (test code = Normal 93735-5) [facility] Head W/O [id number] 20:43:43 Impression: Grossly unchanged enlargement of the ventricles. Left frontal approachventricular shunt catheter unchanged in position. 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, h/o XRAY TECH shunt Comparison: 02/03/2019 Technique: Routine unenhanced brain [...] PM CSTCT HEAD WO CONTRASTHISTORY: MONTANEZ, h/o XRAY TECH shunt Comparison: 02/03/2019 Technique: Routine unenhanced brain [...] Left frontal approachventricular shunt catheter unchanged in position.[facility] HospitalPOCT-GLUCOSE [id number] 06:57:00 Test Item Value Reference Range Interpretation Comments POC-GLUCOSE METER 117 mg/dL 70-110 H TESTED AT [facility] 6720 (INDER) (test code = DELVIN [place] 1538) [address] POCT-GLUCOSE [id number] 16:25:00 Test Item Value Reference Range Interpretation Comments POC-GLUCOSE METER 88 mg/dL 70-110 TESTED AT [place] [address] ([facility] (test code = DELVIN Benson [facility] [place] [address] 1538) POCT-GLUCOSE [id number] 06:12:00 Test Item Value Reference Range Interpretation Comments POC-GLUCOSE METER 91 mg/dL 70-110 TESTED AT [place] [address] ([facility] (test code = DELVIN Benson [facility] [place] [address] 1538) POCT-GLUCOSE [id number] 16:29:00 Test Item Value Reference Range Interpretation Comments POC-GLUCOSE METER 94 mg/dL 70-110 TESTED AT [place] [address] ([facility] (test code = DELVIN Benson [facility] [place] [address] 1538) POCT-GLUCOSE [id number] 06:27:00 Test Item Value Reference Range Interpretation Comments POC-GLUCOSE METER 90 mg/dL 70-110 TESTED AT [place] [address] ([facility] (test code = DELVIN Benson [facility] [place] [address] 1538) POCT-GLUCOSE [id number] 16:45:00 Test Item Value Reference Range Interpretation Comments POC-GLUCOSE METER 88 mg/dL 70-110 TESTED AT [place] [address] ([facility] (test code = DELVIN Benson [facility] [place] [address] 1538) POCT-GLUCOSE [id number] 12:04:00 Test Item Value Reference Range Interpretation Comments POC-GLUCOSE METER 73 mg/dL 70-110 TESTED AT [place] [address] ([facility] (test code = DELVIN Benson [facility] [place] [address] 1538) POCT-GLUCOSE [id number] 06:53:00 Test Item Value Reference Range Interpretation Comments POC-GLUCOSE METER 112 mg/dL 70-110 H TESTED AT [place] [address] ([facility] (test code = DELVIN Benson [facility] 1538) [address] POCT-GLUCOSE [id number] 17:08:00 Test Item Value Reference Range Interpretation Comments POC-GLUCOSE METER 96 mg/dL 70-110 TESTED AT [place] [address] ([facility] (test code = DELVIN Benson [facility] [place] [address] 1538) POCT-GLUCOSE [id number] 11:10:00 Test Item Value Reference Range Interpretation Comments POC-GLUCOSE METER 98 mg/dL 70-110 TESTED AT [facility] 6720 (BEAKER) (test code = [place] [address] 1538) BASIC METABOLIC [id number] 07:10:00 Test Item Value Reference Range Interpretation [...] PATIEN TS. CBC W/PLT COUNT & AUTO [id number] 06:30:00 Test Item Value Reference Range Interpretation [...] PERCENT (BEAKER) (test code = 2801) POCT-GLUCOSE [id number] 06:11:00 Test Item Value Reference Range Interpretation Comments POC-GLUCOSE METER 110 mg/dL 70-110 TESTED AT [place] [address] ([facility] (test code = DELVIN Benson [facility] 1538) [address] POCT-GLUCOSE [id number] 20:08:00 Test Item Value Reference Range Interpretation Comments POC-GLUCOSE METER 139 mg/dL 70-110 H TESTED AT [place] [address] ([facility] (test code = DELVIN Benson [facility] [place] 1538) [address] POCT-GLUCOSE [id number] 16:17:00 Test Item Value Reference Range Interpretation Comments POC-GLUCOSE METER 96 mg/dL 70-110 TESTED AT [place] [address] ([facility] (test code = DELVIN Benson [facility] [place] [address] 1538) POCT-GLUCOSE [id number] 11:28:00 Test Item Value Reference Range Interpretation Comments POC-GLUCOSE METER 78 mg/dL 70-110 TESTED AT [place] [address] ([facility] (test code = [place] [address] 1538) POCT-GLUCOSE [id number] 06:24:00 Test Item Value Reference Range Interpretation Comments POC-GLUCOSE METER 94 mg/dL 70-110 TESTED AT [place] [address] ([facility] (test code = [place] [address] 1538) POCT-GLUCOSE [id number] 20:50:00 Test Item Value Reference Range Interpretation Comments POC-GLUCOSE METER 121 mg/dL 70-110 H TESTED AT [place] [address] ([facility] (test code = DELVIN Benson [place] 1538) [id number] POCT-GLUCOSE [id number] 16:08:00 Test Item Value Reference Range Interpretation Comments POC-GLUCOSE METER 80 mg/dL 70-110 TESTED AT [place] [address] ([facility] (test code = [place] [id number] 1538) POCT-GLUCOSE [id number] 11:19:00 Test Item Value Reference Range Interpretation Comments POC-GLUCOSE METER 143 mg/dL 70-110 H TESTED AT [place] [address] ([facility] (test code = DELVIN Benson [place] 1538) [id number] POCT-GLUCOSE [id number] 06:44:00 Test Item Value Reference Range Interpretation Comments POC-GLUCOSE METER 101 mg/dL 70-110 TESTED AT [place] [address] ([facility] (test code = DELVIN Benson [place] 15[address]) [id number] POCT-GLUCOSE [id number] 20:50:00 Test Item Value Reference Range Interpretation Comments POC-GLUCOSE METER 108 mg/dL 70-110 TESTED AT [place] [address] ([facility] (test code = DELVIN Benson [place] 15[address]) [id number] POCT-GLUCOSE [id number] 17:05:00 Test Item Value Reference Range Interpretation Comments POC-GLUCOSE METER 74 mg/dL 70-110 TESTED AT [place] [address] ([facility] (test code = [place] [address] 1538) POCT-GLUCOSE [id number] 11:51:00 Test Item Value Reference Range Interpretation Comments POC-GLUCOSE METER 106 mg/dL 70-110 TESTED AT [place] [address] ([facility] (test code = DELVIN Benson [facility] [place] 1538) [id number] POCT-GLUCOSE [id number] 06:56:00 Test Item Value Reference Range Interpretation Comments POC-GLUCOSE METER 95 mg/dL 70-110 TESTED AT [place] [address] ([facility] (test code = DELVIN Benson [facility] [place] [address]38) POCT-GLUCOSE [id number] 21:23:00 Test Item Value Reference Range Interpretation Comments POC-GLUCOSE METER 96 mg/dL 70-110 TESTED AT [place] [address] ([facility] (test code = DELVIN Benson [facility] [place] [address]38) POCT-GLUCOSE [id number] 16:26:00 Test Item Value Reference Range Interpretation Comments POC-GLUCOSE METER 96 mg/dL 70-110 TESTED AT [place] [address] ([facility] (test code = DELVIN Benson [facility] [place] [address]38) POCT-GLUCOSE [id number] 11:56:00 Test Item Value Reference Range Interpretation Comments POC-GLUCOSE METER 132 mg/dL 70-110 H TESTED AT [place] [address] ([facility] (test code = DELVIN Benson [facility] [place] 1538) [id number] POCT-GLUCOSE [id number] 06:35:00 Test Item Value Reference Range Interpretation Comments POC-GLUCOSE METER 97 mg/dL 70-110 TESTED AT [place] [address] ([facility] (test code = DELVIN Benson [facility] [place] [address]38) POCT-GLUCOSE [id number] 21:10:00 Test Item Value Reference Range Interpretation Comments POC-GLUCOSE METER 121 mg/dL 70-110 H TESTED AT [place] [address] ([facility] (test code = DELVIN Benson [facility] [place] 1538) [id number] POCT-GLUCOSE [id number] 16:51:00 Test Item Value Reference Range Interpretation Comments POC-GLUCOSE METER 126 mg/dL 70-110 H TESTED AT [place] [address] ([facility] (test code = DELVIN Benson [facility] [place] 1538) [id number] POCT-GLUCOSE [id number] 11:20:00 Test Item Value Reference Range Interpretation Comments POC-GLUCOSE METER 109 mg/dL 70-110 TESTED AT [place] [address] ([facility] (test code = DELVIN Benson [facility] [place] 1538) [address] POCT-GLUCOSE [id number] 06:57:00 Test Item Value Reference Range Interpretation Comments POC-GLUCOSE METER 167 mg/dL 70-110 H TESTED AT [facility] 6720 (BEAKER) (test code = DELVIN [place] 1538) [address] PROTHROMBIN [id number] 06:49:00 Test Item Value Reference Range Interpretation Comments PROTIME (BEAKER) (test code = 12.5 seconds 11.9-14.2 759) INR (BEAKER) (test code = 370) 1.0 <=5.9 RECOMMENDED COUMADIN/WARFARIN INR THERAPY RANGESSTANDARD DOSE: 2.0 - 3.0 Includes: PROPHYLAXIS forvenous thrombosis, systemic embolization; TREATMENT for venous thrombosis and/or pulmonary embolus.HIGH RISK: Target INR is 2.5-3.5 for patients with mechanical heart valves.BASIC METABOLIC [id number] 06:49:00 Test Item Value Reference Range Interpretation [...] PATIEN TS. CBC W/PLT COUNT & AUTO [id number] 06:33:00 Test Item Value Reference Range Interpretation [...] PERCENT (BEAKER) (test code = 2801) POCT-GLUCOSE [id number] 21:27:00 Test Item Value Reference Range Interpretation Comments POC-GLUCOSE METER 129 mg/dL 70-110 H TESTED AT [facility] 6720 (BEAKER) (test code = DELVIN Benson [facility] [place] 1538) [address] POCT-GLUCOSE [id number] 17:18:00 Test Item Value Reference Range Interpretation Comments POC-GLUCOSE METER 108 mg/dL 70-110 TESTED AT [place] [address] ([facility] (test code = DELVIN Benson [facility] [place] 1538) [address] POCT-GLUCOSE [id number] 11:54:00 Test Item Value Reference Range Interpretation Comments POC-GLUCOSE METER 107 mg/dL 70-110 TESTED AT [place] [address] ([facility] (test code = DELVIN Benson [facility] [place] 1538) [address] POCT-GLUCOSE [id number] 11:54:00 Test Item Value Reference Range Interpretation Comments POC-GLUCOSE METER 63 mg/dL 70-110 L Will Repea t Test/TESTED ([facility] (test code = AT [address] [address]) [facility] [place] [address] POCT-GLUCOSE [id number] 20:58:00 Test Item Value Reference Range Interpretation Comments POC-GLUCOSE METER 97 mg/dL 70-110 TESTED AT [place] [address] ([facility] (test code = ALIAIL Marcelino [facility] [place] [address]) POCT-GLUCOSE [id number] 13:08:00 Test Item Value Reference Range Interpretation Comments POC-GLUCOSE METER 110 mg/dL 70-110 TESTED AT [place] [address] ([facility] (test code = DELVIN Benson [facility] [place] 1538) [address] [id number] 07:12:00 Test Item Value Reference Range Interpretation Comments MAGNESIUM (BEAKER) (test code = 2.2 mg/dL 1.6-2.6 627) BASIC METABOLIC [id number] 07:12:00 Test Item Value Reference Range Interpretation [...] PATIEN TS. CBC W/PLT COUNT & AUTO [id number] 06:50:00 Test Item Value Reference Range Interpretation [...] (BEAKER) (test code = 2801) RAD, SHUNT [id number] 16:15:00Reason for exam:->Hydrocephalus on CT FINAL REPORT [...] MDReport Verified Date/Time: 08/10/2018 16:15:10 Reading Location: [address] Body Reading Room [id number] 06:49:00 Test Item Value Reference Range Interpretation Comments MAGNESIUM (BEAKER) (test code = 2.0 mg/dL 1.6-2.6 627) BASIC METABOLIC [id number] 06:49:00 Test Item Value Reference Range Interpretation [...] PATIEN TS. CBC W/PLT COUNT & AUTO [id number] 06:17:00 Test Item Value Reference Range Interpretation [...] PERCENT (BEAKER) (test code = 2801) POCT-GLUCOSE [id number] 18:47:00 Test Item Value Reference Range Interpretation Comments POC-GLUCOSE METER 86 mg/dL 70-110 TESTED AT [place] [address] ([facility] (test code = [facility] [address]) [id number] 13:23:00 Test Item Value Reference Range Interpretation Comments RPR SCREEN ([facility])) (test code = Nonreactive Nonreactive 420) POCT-GLUCOSE [id number] 12:36:00 Test Item Value Reference Range Interpretation Comments POC-GLUCOSE METER 101 mg/dL 70-110 TESTED AT [place] [address] ([facility])) (test code = [facility] 1538) [id number] MR, BRAIN, WITHOUT [id number] 12:20:00Reason for exam:->StrokeWhat is the patient's sedation [...] MDReport Verified Date/Time: 08/09/2018 12:20:16 Reading Location: [facility] C013V Neuro Reading Room TSH/FREE T4 IF INDICATED 2018-08-09 09:53:00 Test Item Value Reference Range Interpretation Comments THYROID STIMULATING HORMONE 1.28 uIU/mL 0.35-4.94 ([facility]) (test code = 772) POCT-GLUCOSE [id number] 08:34:00 Test Item Value Reference Range Interpretation Comments POC-GLUCOSE METER 99 mg/dL 70-110 TESTED AT [facility] 6720 ([facility] (test code = DELVIN Benson [facility] [place] [address]) BASIC METABOLIC [id number] 06:09:00 Test Item Value Reference Range Interpretation [...] S NOT APPLICABLE FOR DIALYSIS PATIEN TS. [id number] 06:05:00 Test Item Value Reference Range Interpretation Comments MAGNESIUM (BEAKER) 2.0 mg/dL 1.6-2.6 Specimen slightly (test code = 627) hemolyzed FastingLIPID [id number] 06:05:00 Test Item Value Reference Range Interpretation [...] High >=190 FastingCBC W/PLT COUNT & AUTO [id number] 05:51:00 Test Item Value Reference Range Interpretation [...] PERCENT (BEAKER) (test code = 2801) POCT-GLUCOSE [id number] 21:49:00 Test Item Value Reference Range Interpretation Comments POC-GLUCOSE METER 92 mg/dL 70-110 TESTED AT [facility] 6720 (BEAKER) (test code = [place] [address] 1538) HEMOGLOBIN [id number] 21:38:00 Test Item Value Reference Range Interpretation Comments HEMOGLOBIN A1C (BEAKER) (test code = 6.3 % 4.3-6.1 H 368) VITAMIN B12 AND [id number] 19:26:00 Test Item Value Reference Range Interpretation Comments VITAMIN B12 (BEAKER) (test code = 306 pg/mL 213-816 774) FOLATE (BEAKER) (test code = 362) 14.3 ng/mL >=7.0 TROPONIN [id number] 18:58:00 Test Item Value Reference Range Interpretation [...] acute neurological disease, and persistent tachyarrhythmia.BASIC METABOLIC [id number] 18:53:00 Test Item Value Reference Range Interpretation [...] APPLICABLE FOR DIALYSIS PATIEN TS. HEPATIC FUNCTION [id number] 18:51:00 Test Item Value Reference Range Interpretation [...] code = 35 U/L 6-55 347) PROTHROMBIN [id number] 18:46:00 Test Item Value Reference Range Interpretation [...] PERCENT (BEAKER) (test code = 2801) POCT-GLUCOSE [id number] 18:04:00 Test Item Value Reference Range Interpretation Comments POC-GLUCOSE METER 125 mg/dL 70-110 H TESTED AT [facility] 6760 (BEAKER) (test code = DELVIN [place] 1538) [id number]
[2021-08-09 05:00] LABS: Lymphocytes % 17.4 % (15.3-44.8); MPV 7.9 fL (7.6-11.3); RBC Red Blood Cell Count 5.48 M/uL (4.33-5.43)
[2021-08-09 05:05] LABS: Protime INR 1.11
[2021-08-09 05:22] LABS: Albumin 3.2 g/dL (3.4-5.0); Bilirubin Total 0.3 mg/dL (0.2-1.0); Potassium 3.8 mmol/L (3.5-5.1); Protein, Total 7.8 g/dL (6.4-8.2)
[2021-08-09 05:47] LABS: Urine Blood Negative (Negative); Urine Glucose Negative (Negative); Urine Protein Negative (Negative); Urine Specific Gravity 1.025 (1.005-1.030)
--- NOTE | 2021-08-09 07:34 | ER ---
Nurse's Notes [facility] Name: Chucky Weinberg Age: 51 yrs Sex: Male : 1970 Arrival Date: 08/09/2021 Time: 04:28 Bed 4 Private MD: Diagnosis: Viral infection, unspecified;Acute upper respiratory infection, unspecified;Diarrhea, unspecified Presentation: 08/09 04:28 Chief complaint: EMS states: pt has been having a cough, diarrhea, fever, overall not as6 feeling good. Coronavirus screen: Client presents with at least one sign or symptom that may indicate coronavirus-19. Standard/surgical mask placed on the client. Provider contacted for isolation considerations. Ebola Screen: No symptoms or risks identified at this time. Initial Sepsis Screen: Does the patient meet any 2 criteria? RR > 20 per min. Temp <36.0*C (96.8*F)) or > 38.3*C (100.9*F). HR > 90 bpm. Yes Does the patient have a suspected source of infection? Yes: Productive cough/pneumonia. Risk Assessment: Do you want to hurt yourself or someone else? Patient reports no desire to harm self or others. Onset of symptoms was August 06, 2021. 04:28 Method Of Arrival: EMS: [facility] as6 04:28 Acuity: JAVIER 3 as6 Historical: - Allergies: 04:32 No Known Allergies; as6 - Home Meds: 04:32 aspirin 81 mg Oral chew 1 tab once daily [Active]; Ativan 1 mg Oral tab 3 times per day as6 [Active]; atorvastatin 20 mg Oral tab 1 tab once daily [Active]; docusate sodium 100 mg Oral cap 1 cap once daily [Active]; doxepin 10 mg Oral cap 2 caps nightly [Active]; Keppra 500 mg Oral tab 1 tab 2 times per day [Active]; senna 8.6 mg Oral cap [Active]; metformin 500 mg Oral tab 1 tab 2 times per day [Active]; tamsulosin 0.4 mg Oral cp24 1 cap once daily [Active]; - PMHx: 04:32 CVA; Diabetes - NIDDM; Hyperlipidemia; Seizures; as6 - Immunization history:: Adult Immunizations unknown, Client reports receiving the 2nd dose of the Covid vaccine. - Social history:: Smoking status: Patient denies any tobacco usage or history of. Screenin:53 Abuse screen: Denies threats or abuse. Denies injuries from another. Nutritional as6 screening: No deficits noted. Tuberculosis screening: No symptoms or risk factors identified. Fall Risk Fall in past 12 months (25 points). No secondary diagnosis (0 pts). IV access (20 points). Ambulatory Aid- Crutches/Cane/Walker (15 pts). Mental Status- Oriented to own ability (0 pts). Total Abraham Fall Scale indicates High Risk Score (45 or more points). Fall prevention measures have been instituted. Side Rails Up X 2 Frequent Obs/Assessments Occuring As available patient and family educated on Fall Prevention Program and Strategies. Assessment: 04:35 General: Appears in no apparent distress. Behavior is calm, cooperative. General: as6 Reports fever for feeling ill for. Pain: Complains of pain in bodyaches. Neuro: Level of Consciousness is awake, alert, obeys commands, Oriented to person, place, time, situation, Reports headache. Cardiovascular: Patient's skin is warm and dry. Respiratory: Reports shortness of breath cough that is Respiratory effort is even, unlabored, Respiratory pattern is regular, symmetrical. GI: Reports diarrhea. 05:18 General: pt had left sided deficits from previous CVA . as6 06:28 Reassessment: Patient appears in no apparent distress at this time. assisted pt to as6 bathroom via WC. 07:00 Reassessment: RECD REPORT FROM AP ZAVALA. 51YO HM P/W COUGH AND MALAISE. bp 07:14 Reassessment: Patient appears in no apparent distress at this time. Patient and/or jd3 family updated on plan of care and expected duration. Pain level reassessed. Patient is alert, oriented x 3, equal unlabored respirations, skin warm/dry/pink. 07:57 Reassessment: PT D/C HOME VIA W/C, DX WITH VIRAL URI. bp Vital Signs: 04:28 BP 110 / 45; Pulse 92 MON; Resp 15 S; Temp 100.4(O); Pulse Ox 87% on R/A; Weight 122.47 as6 kg (R); Height 5 ft. 9 in. (175.26 cm) (R); Pain 4/10; 05:30 BP 128 / 65; Pulse 89; Resp 20 S; Pulse Ox 93% on 2 lpm NC; as6 06:29 BP 126 / 73; Pulse 84; Resp 23 S; Pulse Ox 95% on 2 lpm NC; as6 07:13 BP 134 / 69; Pulse 85; Resp 22; Pulse Ox 96% on 2 lpm NC; jd3 04:28 Body Mass Index 39.87 (122.47 kg, 175.26 cm) as6 ED Course: 04:28 Patient arrived in ED. as6 04:31 Dre Bey MD is Attending Physician. kdr 04:32 Triage completed. as6 04:34 Ap Walker, RN is Primary Nurse. as6 04:34 Arm band placed on. as6 04:54 Inserted saline lock: 20 gauge in right antecubital area, using aseptic technique. as6 Blood collected. Oxygen administration via nasal cannula \T\ 2L/min Response to oxygen therapy: symptoms improved. 05:09 CXR XRAY In Process Unspecified. EDMS 06:14 Bed in low position. Call light in reach. Side rails up X2. Client placed on continuous as6 cardiac and pulse oximetry monitoring. NIBP monitoring applied. 06:27 PO fluids given. as6 07:02 Primary Nurse role handed off by Ap Walker RN bp 07:02 Gaurav Booth, LUCAS is Primary Nurse. bp 07:57 No provider procedures requiring assistance completed. IV discontinued, intact, bp bleeding controlled, No redness/swelling at site. Pressure dressing applied. Administered Medications: No medications were administered Medication: 05:19 VIS not applicable for this client. as6 Outcome: 07:33 Discharge ordered by . kdr 07:57 Discharged to home via wheelchair, with family. bp 07:57 Condition: stable 07:57 Discharge instructions given to patient, Instructed on discharge instructions, follow up and referral plans. Demonstrated understanding of instructions, follow-up care. 08:12 Patient left the ED. ss Signatures: Dispatcher [employer] EDMS Dre Bey MD MD kdr Smirch, Shelby, RN RN Severiano Robbins RN RN Gaurav Jackson RN RN bp Ap Walker RN RN as6
--- NOTE | 2021-08-09 07:34 | EDPHYS ---
Physician Documentation [facility] Name: Chucky Weinberg Age: 51 yrs Sex: Male : 1970 Arrival Date: 08/09/2021 Time: 04:28 Bed 4 Private MD: ED Physician Dre Bey HPI: 08/09 04:40 This 51 yrs old Male presents to ER via EMS with complaints of fever and SOB. kdr 04:40 Patient states that he feels like he did when he had pneumonia previously. He began kdr feeling ill today. He has had some cough and congestion. He has had subjective fever. He denies any vomiting. He has had mild nausea. He has no other focal complaints. He has had a recent hospital visits for a broken left tibia and clavicle. He states he has had 8 falls in the last few weeks. Believes this to be due to his intermittent vertigo. Patient has had a prior stroke with paralyzation on the left side of his body. Onset: The symptoms/episode began/occurred today. Severity of symptoms: At their worst the symptoms were mild in the emergency department the symptoms are unchanged. The patient has experienced similar episodes in the past, a few times. The patient has been recently seen by a physician: Clavicle on the left. Historical: - Allergies: 04:32 No Known Allergies; as6 - Home Meds: 04:32 aspirin 81 mg Oral chew 1 tab once daily [Active]; Ativan 1 mg Oral tab 3 times per day as6 [Active]; atorvastatin 20 mg Oral tab 1 tab once daily [Active]; docusate sodium 100 mg Oral cap 1 cap once daily [Active]; doxepin 10 mg Oral cap 2 caps nightly [Active]; Keppra 500 mg Oral tab 1 tab 2 times per day [Active]; senna 8.6 mg Oral cap [Active]; metformin 500 mg Oral tab 1 tab 2 times per day [Active]; tamsulosin 0.4 mg Oral cp24 1 cap once daily [Active]; - PMHx: 04:32 CVA; Diabetes - NIDDM; Hyperlipidemia; Seizures; as6 - Immunization history:: Adult Immunizations unknown, Client reports receiving the 2nd dose of the Covid vaccine. - Social history:: Smoking status: Patient denies any tobacco usage or history of. ROS: 04:40 Constitutional: Negative for weight loss, has had fever and chills Eyes: Negative for kdr injury, pain, redness, and discharge, Neck: Negative for injury, pain, and swelling, Cardiovascular: Negative for chest pain, palpitations, and edema, Abdomen/GI: Negative for abdominal pain, nausea, vomiting, diarrhea, and constipation, Back: Negative for injury and pain, : Negative for injury, bleeding, discharge, and swelling, Skin: Negative for injury, rash, and discoloration, Neuro: Negative for headache, weakness, numbness, tingling, and seizure activity. Psych: Negative for depression, anxiety, suicide ideation, homicidal ideation, and hallucinations, Allergy/Immunology: Negative for hives, rash, and allergies, Endocrine: Negative for neck swelling, polydipsia, polyuria, polyphagia, and marked weight changes, Hematologic/Lymphatic: Negative for swollen nodes, abnormal bleeding, and unusual bruising. 04:40 Neuro: Positive for Left-sided paralysis secondary to a prior CVA. 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 Exam: 04:40 Constitutional: This is a well developed, well nourished patient who is awake, alert, kdr and in no acute distress. Head/Face: Normocephalic, atraumatic. Eyes: Pupils equal round and reactive to light, extra-ocular motions intact. Lids and lashes normal. Conjunctiva and sclera are non-icteric and not injected. Cornea within normal limits. Periorbital areas with no swelling, redness, or edema. Neck: Trachea midline, no thyromegaly or masses palpated, and no cervical lymphadenopathy. Supple, full range of motion without nuchal rigidity, or vertebral point tenderness. No Meningismus. Chest/axilla: Normal chest wall appearance and motion. Nontender with no deformity. No lesions are appreciated. Cardiovascular: Regular rate and rhythm with a normal S1 and S2. No gallops, murmurs, or rubs. Normal PMI, no JVD. No pulse deficits. Respiratory: Lungs have equal breath sounds bilaterally, clear to auscultation and percussion. No rales, rhonchi or wheezes noted. No increased work of breathing, no retractions or nasal flaring. Abdomen/GI: Soft, non-tender, with normal bowel sounds. No distension or tympany. No guarding or rebound. No evidence of tenderness throughout. Back: No spinal tenderness. No costovertebral tenderness. Full range of motion. Skin: Warm, dry with normal turgor. Normal color with no rashes, no lesions, and no evidence of cellulitis. MS/ Extremity: Pulses equal, no cyanosis. Neurovascular intact. Full, normal range of motion. Psych: Awake, alert, with orientation to person, place and time. Behavior, mood, and affect are within normal limits. 04:40 Neuro: Sided weakness due to prior CVA. Vital Signs: 04:28 BP 110 / 45; Pulse 92 MON; Resp 15 S; Temp 100.4(O); Pulse Ox 87% on R/A; Weight 122.47 as6 kg (R); Height 5 ft. 9 in. (175.26 cm) (R); Pain 4/10; 05:30 BP 128 / 65; Pulse 89; Resp 20 S; Pulse Ox 93% on 2 lpm NC; as6 06:29 BP 126 / 73; Pulse 84; Resp 23 S; Pulse Ox 95% on 2 lpm NC; as6 07:13 BP 134 / 69; Pulse 85; Resp 22; Pulse Ox 96% on 2 lpm NC; jd3 04:28 Body Mass Index 39.87 (122.47 kg, 175.26 cm) as6 MDM: 07:33 Patient medically screened. kdr 07:45 Data reviewed: vital signs, nurses notes, lab test result(s), radiologic studies. kdr Counseling: I had a detailed discussion with the patient and/or guardian regarding: the historical points, exam findings, and any diagnostic results supporting the discharge/admit diagnosis, lab results, radiology results, the need for outpatient follow up. 08/09 04:32 Order name: Blood Culture Adult (2) kdr 08/09 04:32 Order name: CBC with Diff; Complete Time: 05:27 kdr 08/09 04:32 Order name: CMP; Complete Time: 06:34 kdr 08/09 04:32 Order name: Lactate; Complete Time: 06:34 kdr 08/09 04:32 Order name: Protime (+inr); Complete Time: 06:34 kdr 08/09 04:32 Order name: Ptt, Activated; Complete Time: 06:34 kdr 08/09 04:32 Order name: Accucheck; Complete Time: 04:54 kdr 08/09 04:39 Order name: CXR XRAY kdr 08/09 04:39 Order name: Urine Culture [facility] 08/09 04:42 Order name: COVID-19 SARS RT PCR (Document "Date of Onset" if Symptomatic); Complete mw2 Time: 06:34 08/09 04:42 Order name: Flu; Complete Time: 06:34 mw2 08/09 05:04 Order name: Glucose, Ancillary Testing; Complete Time: 06:34 [facility] 08/09 05:47 Order name: Urine Dipstick-Ancillary; Complete Time: 06:34 EDMS 08/09 06:14 Order name: EKG Electrocardiogram [facility] 08/09 04:32 Order name: Cardiac monitoring; Complete Time: 04:34 [facility] 08/09 04:32 Order name: EKG - Nurse/Tech; Complete Time: 04:54 kdr 08/09 04:32 Order name: IV Saline Lock - Large Bore; Complete Time: 04:54 kdr 08/09 04:32 Order name: Labs collected and sent; Complete Time: 04:54 [facility] 08/09 04:32 Order name: O2 Per Protocol; Complete Time: 04:34 kdr 08/09 04:32 Order name: O2 Sat Monitoring; Complete Time: 04:34 kdr 08/09 04:39 Order name: Urine Dipstick-Ancillary (obtain specimen); Complete Time: 05:48 kdr Administered Medications: No medications were administered Disposition Summary: 08/09/21 07:33 Discharge Ordered Location: Home kdr Problem: new kdr Symptoms: have improved kdr Condition: Stable kdr Diagnosis - Viral infection, unspecified kdr - Acute upper respiratory infection, unspecified kdr - Diarrhea, unspecified kdr Followup: kdr - With: Private Physician - When: 2 - 3 days - Reason: If symptoms return, Further diagnostic work-up, Recheck today's complaints, Continuance of care, Re-evaluation by your physician Discharge Instructions: - Discharge Summary Sheet kdr - Upper Respiratory Infection, Adult, Ydyb-kd-Ijsu kdr - Viral Respiratory Infection, Eaxj-Fq-Uawh kdr - Diarrhea, Adult, Uwlm-oq-Boxt kdr Forms: - Medication Reconciliation Form kdr - Thank You Letter kdr Signatures: Dispatcher MedHoPres[facility] Santa Fe Medical CenterDre Gilmore MD MD kdr Christo Jim, VETERINARY EPIDEMIOLOGIST-C VETERINARY EPIDEMIOLOGIST-Cla1 Slawson, Ap, RN RN as6
[2021-08-09 08:23] VITALS: TEMP 100.4
[2021-08-09 08:28] VITALS: BP 134/69; O2SAT 96
--- NOTE | 2021-08-09 09:08 | EKG ---
Test Date: 2021-08-09 Test Time: 04:41:45 Heel Padder: ELLEN MEASUREMENT RESULTS: Intervals: Rate: 91 KS: 150 QRSD: 82 QT: 332 QTc: 408 [place]: P: 44 KS: 150 QRS: 46 T: 19 INTERPRETIVE STATEMENTS: Normal sinus rhythm Normal ECG No previous ECG available for comparison Electronically Signed On 08-09-21 09:07:57 CDT by Robert Lucia
--- NOTE | 2021-08-09 15:47 | RAD REPORT ---
EXAM DESCRIPTION: RAD - Chest Single View - 08/09/2021 5:07 am CLINICAL HISTORY: 51 years Male, COUGH COMPARISON: None. TECHNIQUE: Single portable x-ray view of the chest performed on 08/09/2021 at 5:03 AM FINDINGS: The lungs are hypoinflated. No focal airspace consolidation is identified. The central ves sels are prominent but this may be partly related to hypoinflation of the lungs. The lateral costophr enic sulci are grossly clear. There is no evidence of a pneumothorax. The cardiac silhouette is prominent and may be accentuated by the portable hypoinflated technique. The mediastinal contours are normal. There is a mildly displaced, age indeterminant fracture of the distal third of the left clavicle. No acute soft tissue abnormalities are seen. Lines and tubes: There is partial visualization of a left-sided ventriculoperitoneal shunt catheter . Free air: None IMPRESSION: 1. Prominence of the central vessels which may be partly related to hypoinflation of t he lungs. 2. Mildly displaced, age indeterminant fracture of the distal third of the left clavicle. Electronically signed by: Pat Damon DO 08/09/2021 6:38 AM CDT Due to temporary technical issues with the PACS/Fluency reporting system, reports are being signed by the in house radiologists without review as a courtesy to insure prompt reporting. The interpreting radiologist is fully responsible for the content of the report.
== END 2021-08-09 08:12 | disposition home or self-care (01) ==
LOC: ER 04:23
DX: B34.9 Viral infection, unspecified (principal); J06.9 Acute upper respiratory infection, unspecified; E78.5 Hyperlipidemia, unspecified; E11.9 Type 2 diabetes mellitus without complications; I69.354 Hemiplegia and hemiparesis following cerebral infarction affecting left non-dominant side; Z20.822 Contact with and (suspected) exposure to COVID-19; Z98.2 Presence of cerebrospinal fluid drainage device; Z79.82 Long term (current) use of aspirin
CPT/HCPCS: 93005; 87040 ×2; 87088; 85025; 87086; 36415; 85610; 82947; 83605; 85730; 81003; 80053; 87804 ×2; 71045; 99284; U0003

== ENCOUNTER 2022-04-08 01:44 | Emergency (ER) | payer OTHER ==
[2022-04-08] MEDS ORDERED: ONDANSETRON 4 MG/2 ML VIAL ONE (02:16)
[2022-04-08] MEDS ORDERED: NA CHLORIDE 0.9% 1,000 ML ONE ×2 (02:17→03:34)
--- OUTSIDE RECORDS SUMMARY | 2022-04-08 02:31 | XMS REPORT | Continuity of Care Document ---
:1970 Author Organization [facility] t Address [address] [place] [address] Care Team Providers Name Role Phone BART WINCHESTER Primary Care Physician Unavailable Bart Winchester Attending Clinician Unavailable [id number] Attending Clinician Unavailable Louis Lay Attending Clinician Unavailable LIO MANCUSO Attending Clinician Unavailable Sigrid MARTIN, Mai Attending Clinician JEANNETTE ALEXANDER Attending Clinician Unavailable Jeannette Alexander MD Attending Clinician Domenico Brush MD Attending Clinician Marlon Arreaga CRNA Attending Clinician JEANNETTE ALEXANDER Attending Clinician Unavailable RIGOBERTO CARRILLO Attending Clinician Unavailable Coleen De La Paz MD Attending Clinician YAZAN KNIGHT Attending Clinician Unavailable Yazan Knight MD Attending Clinician Ekta ZAVALA, Blanca Golden Attending Clinician Unavailable CHARITO MICHELLE Attending Clinician Unavailable Ebenezer Cabrera MD Attending Clinician Jimbo Luna MD Attending Clinician Deepika Castro MD Attending Clinician Charito Michelle MD Attending Clinician TAYLOR DE DIOS Attending Clinician Unavailable ANGUS BARNES Attending Clinician Unavailable Angus Barnes DO Attending Clinician ELAINA GREER Attending Clinician Unavailable Elaina Iglesias Attending Clinician Missy Walker MD Attending Clinician Doctor Unassigned, [facility] Attending Clinician Unavailable OMER MAYO Attending Clinician Unavailable OMER MAYO Attending Clinician Unavailable Omer Mayo MD Attending Clinician COLEEN DE LA PAZ Attending Clinician Unavailable Provider, [facility] Attending Clinician Unavailable Michelle Garcia RN Attending Clinician Unavailable 2, [facility] Attending Clinician Unavailable 1, [facility] Sleep Lab Bed Attending Clinician Unavailable Mer Askew DO Attending Clinician Mary Fleming DO Attending Clinician Pob, [facility] Lab Main Attending Clinician Unavailable Basil Singer MD Attending Clinician NIHDI CHAMPION Attending Clinician Unavailable LACIE BAEZA Attending Clinician Unavailable CINDY CORTEZ Attending Clinician Unavailable [id number] Admitting Clinician Unavailable JEANNETET ALEXANDER Admitting Clinician Unavailable YAZAN KNIGHT Admitting Clinician Unavailable DEEPIKA CASTRO Admitting Clinician Unavailable Deepika Castro MD Admitting Clinician ANGUS BARNES Admitting Clinician Unavailable ELAINA GREER Admitting Clinician Unavailable NIDHI CHAMPION Admitting Clinician Unavailable LACIE BAEZA Admitting Clinician Unavailable CINDY CORTEZ Admitting Clinician Unavailable Payers Payer Name Policy Type Policy Number Effective Date Expiration Date S jocelyn HUMANA MEDICARE [id number] 2019-08-23 2021-03-18 ADVANTAGE O 00:00:00 00:00:00 MCR MCR [id number] HUMM HUMM [id number] [facility] WELLMED [id number] 2021-03-19 00:00:00 WELLMED MEDICARE [id number] 2021-08-17 00:00:00 MEDICAID [place] [id number] 2021-11-17 00:00:00 MEDICARE A B [id number] 2016-03-19 00:00:00 WELLCARE [id number] [facility]IC[facility] HMO [id number] 2017-03-19 2017-11-16 - AETNA 00:00:00 00:00:00 MEDICARE PART A [id number] \\T\\ [id number] - MEDICARE MARKETPLACE PLAN [id number] HMO HUMANA MEDICARE C1 [id number] [facility] HUMANA MEDICARE C1 [id number] [facility] HUMANA MEDICARE C1 [id number] [facility] HUMANA MEDICARE C1 [id number] [facility] HUMANA MEDICARE C1 [id number] [facility] HUMANA MEDICARE C1 [id number] [facility] HUMANA MEDICARE C1 [id number] [facility] HUMANA MEDICARE C1 [id number] [facility] HUMANA MEDICARE C1 [id number] [facility] HUMANA MEDICARE C1 [id number] [facility] HUMANA MEDICARE C1 [id number] [facility] HUMANA MEDICARE C1 [id number] [facility] HUMANA MEDICARE C1 [id number] [facility] HUMANA MEDICARE C1 [id number] [facility] HUMANA MEDICARE C1 [id number] [facility] HUMANA MEDICARE C1 [id number] [facility] HUMANA MEDICARE C1 [id number] [facility] HUMANA MEDICARE C1 [id number] [facility] HUMANA MEDICARE C1 [id number] [facility] HUMANA MEDICARE C1 [id number] [facility] HUMANA MEDICARE C1 [id number] [facility] HUMANA MEDICARE C1 [id number] [facility] HUMANA MEDICARE C1 [id number] [facility] Problems Condition Condition Condition Status Onset Resolution Last Treating Co mments Source Name Details Category Date Date Treatment Clinician Date Cough Cough Disease Active Univers 5-28 ity of 00:00: [address] Obesity Obesity Disease Active Univers (BMI (BMI 5-28 ity of 30-39.9) 30-39.9) 00:00: [address] Closed Closed Disease Active [place] displaced displaced 5-16 Heal th fracture fracture 00:00: of shaft of shaft 00 of left of left clavicle clavicle 2000/40ML 2000/40ML Diagnosis Active 2021-12-07 Memoria AD AD 07-23 13:30:00 l 12/04/2021 12/04/2021 00:00: Wilson rmann Active 00 07/23/2021 [facility] FOLLOW UP FOLLOW UP Diagnosis Active 2021-11-11 Memoria Active 07-19 16:23:00 l 07/19/2021 00:00: Mauricio PURI [facility] 00 2000/40ML 2000/40ML Diagnosis Active 2020-032021-07-19 Memoria Active 10:23:00 l 03/17/2021 00:00: Mauricio rizo [facility] 00 EVAL EVAL Diagnosis Active 2020-10-26 Mem oria Active 08-31 10:34:00 l 08/31/2020 00:00: Mauricio rizo [facility] 00 600 600 Diagnosis Active 2019-032020-08-27 Mem oria Active 23:33:00 l 03/16/2020 00:00: Mauricio rizo [facility] 00 2000/40 ML 2000/40 Diagnosis Active 2019-032020-06-25 Memoria ML Active 03-23 14:08:00 l 01/22/2020 00:00: Mauricio rizo [facility] 00 R51 - R51 - Diagnosis Active 2020-2019-11-04 Mem oria HEADACHE HEADACHE - 15:05:00 l Active 00:01: Demar 10/31/2019 00 MH OPID [place] 600 UNITS 600 UNITS Diagnosis Active 2019-12-17 Memoria Active 09-15 09:46:00 l 09/16/2019 00:00: Mauricio rizo [facility] 00 REFILL:200 REFILL:20 Diagnosis Active 2019-2020-02-03 Memoria 0/40ML AD: 00/40ML 6- 14:52:00 l 02/01/20 AD: 00:00: [place] 02/01/20 00 Active 08/29/2019 [facility] BOTOX INJ. BOTOX Diagnosis Active 2019-09-16 Memoria INJ. 6-11 11:26:00 l Active 00:00: Demar 08/28/2019 00 MH [facility] Other Other Disease Active 2020- Univers headache headache 3-05 ity of syndrome syndrome 00:00: [facility] [place] [facility] DISCHARGE DISCHARGE Diagnosis Active 2019-09-16 Memoria FOLLOW UP FOLLOW UP 3-05 11:43:00 l Active 00:00: [place] 05/22/2019 00 MH [facility] Brain Brain Disease Active 2020- Univers aneurysm aneurysm 1-14 ity of 00:00: [facility] [place] [facility] Mobility Mobility Disease Active 2020-0 Unive rs impaired impaired 1-14 ity of 00:00: [facility] [place] [facility] Balance Balance Disease Active 2020-0 Univers problem problem 1-14 ity of 00:00: [facility] [place] [facility] Sleep Sleep Disease Active 2020-0 Univers apnea in apnea in 1-14 ity of adult adult 00:00: [place] 00 [facility] Class 3 Class 3 Disease Active Univers severe severe -14 ity of obesity obesity 00:00: [place] due to due to 00 Medical excess excess Branch calories calories without without serious serious comorbidit comorbidit y with y with body mass body mass index index (BMI) of (BMI) of 40.0 to 40.0 to 44.9 in 44.9 in adult adult Urinary Urinary Disease Active Univers incontinen incontinen -14 it y of ce, ce, 00:00: [place] unspecifie unspecifie 00 Me dical d type d type Branch Neuropathy Neuropathy Disease Active U nivers 1-14 ity of 00:00: [place] 00 [facility] Branch Methicilli Problem Active 2018-032021-11-17 M claudia n Methicilli 04-06 00:32:03 l resistant n 00:00: Demar Staphyloco resistant 00 ccus Staphyloco aureus ccus (organism) aureus (organism) Active 02/04/2019 Problem 11/17/2021 Nares-01/17<br/ >Problem added by Discern Expert. Joan Neuro, [facility], Boris Zuniga [facility] ENCEPHALOP ENCEPHALO Diagnosis Active 2018-032019-02-26 Memoria ATHY RUIZ 04-06 22:03:00 l Active 00:00: Demar 02/04/2019 00 [facility] AMS Diagnosis Active 2018-032019-06-09 Mem oria POSSIBLE POSSIBLE -19 15:20:00 l SHUNT SHUNT 00:00: Demar MALFUNCTIO MALFUNCTIO 00 N N Active 02/04/2019 [facility] Demar [facility], AMS, Diagnosis Active 2018-032019-02-17 Mem oria POSSIBLE POSSIBLE 18 22:19:00 l SHUNT SHUNT 19:37: Demar MALFUNCTIO MALFUNCTIO 00 N N Active 02/03/2019 [facility] NUMBNESS NUMBNESS Diagnosis Active 2018-10-03 Memoria OF TOUNGE OF TOUNGE 09-23 14:21:00 l Active 00:00: Demar 09/23/2018 00 [facility] SLURRED SLURRED Diagnosis Active 2018-09-23 Memoria SPEECH SPEECH 09-23 23:49:00 l Active 00:00: Demar 09/23/2018 00 [facility] Impaired Impaired Disease Active [facility] gait [facility] mobility mobility 00:00: Medica l 00 [place] Spastic Spastic Disease Active [facility] hemiplegia hemiplegia - [place] k[facility] affecting affecting 00:00: Medi cheryl left left 00 Center nondominan nondominan t side t side Essential Essential Disease Active [facility] hypertensi hypertensi 08-13 [place] [facility] on on 00:00: Medical 00 Center Diabetes Diabetes Disease Active [facility] mellitus mellitus 08-13 [facility] type 2 in type 2 in 00:00: Medi cheryl obese obese 00 Center Communicat Communicat Disease Active [facility] ing ing 08-10 [facility] hydrocepha hydrocepha 00:00: Me dical erin erin 00 [place] Stroke Stroke Disease Active [facility] (cerebrum) (cerebrum) 08-08 [place] [facility] 00:00: Medical 00 [place] Stroke Stroke Disease Active [facility] (cerebrum) (cerebrum) 08-08 [place] [facility] 00:00: Medical 00 [place] LEFT-SIDED LEFT-SIDE Diagnosis Active 2020-08-09 Memoria WEAKNESS D WEAKNESS 5-17 21:56:00 l Active 00:00: Demar 08/02/2018 [facility] STROKE STROKE Diagnosis Active 2018-08-02 Me moria SYMPTOMS SYMPTOMS 5-17 16:42:00 l Active 00:00: Demar 08/02/2018 [facility] Left-sided Left-sided Disease Active U aprilers weakness weakness 3-04 ity of 00:00: [place] [address] [place] [address] Branch ARTERIOVEN ARTERIOVE Diagnosis Active 2017-032018-01-22 Memoria OUS NOUS 0-31 13:57:00 l MALFORMATI MALFORMATI 00:00: Wilson davalos ON OF ON BRAIN/ PT BRAIN/ PT Active 01/16/2018 [facility] Hyperlipid Hyperlipid Disease Active 2017-03 U nivers emia, emia, 0-23 ity of unspecifie unspecifie [place] Medical hyperlipid hyperlipid Br anch emia type emia type Q28.2 - Q28.2 - Diagnosis Active 2018-01-12 Memoria ARTERIOVEN ARTERIOVEN 11-27 15:34:00 l OUS OUS 00:01: Demar MALFORMATI MALFORMATI 00 ON OF ON OF Active 11/27/2017 OPID Demar FALL LESS FALL LESS Diagnosis Active 2017-11-12 Memoria THAN 8FT THAN 8FT 10-31 21:43:00 l Active 07:30: Demar 10/31/2017 00 Shock H/O H/O Diagnosis Active 2017-07-03 Mem oria ANEURYSM ANEURYSM 06-23 21:52:00 l Active 00:00: Demar 06/23/2017 00 [facility] ACUTE LEFT ACUTE Diagnosis Active 2017-10-25 Memoria FD/DYSARTH LEFT 06-23 15:26:00 l [place] FD/DYSARTH 00:00: Mauricio n [place] 00 Active 06/23/2017 [facility], Rehabilita tion HYDROCEPHA HYDROCEPH Diagnosis Active 2017-07-17 Memoria ERIN ALUS 06-23 22:07:00 l Active 00:00: Demar 06/23/2017 00 [facility], [facility] OBSTRUCTIV OBSTRUCTI Diagnosis Active 2016-12-15 Memoria E GOLF COURSE ASSISTANT SHUNT VE GOLF COURSE ASSISTANT 12-15 21:35:00 l SHUNT 00:00: Demar Active 00 12/15/2016 [facility] ACUTE ACUTE Diagnosis Active 2016-12-19 Me moria DIARRHEA DIARRHEA 12-15 05:20:00 l Active 00:00: Demar 12/15/2016 00 [facility] Depression Depression Disease Active U aprilers , , 11-24 ity of unspecifie unspecifie 00:[place] Medical depression depression Br anch type type [...] Univers hesitancy hesitancy 11-24 ity of 00:00: [place] 00 Medical Branch G91.0 G91.0 Diagnosis Active 2016-10-17 Mem oria Active 10-10 08:42:00 l 10/10/2016 00:00: Mauricio rizo 00 [facility] Spasticity Spasticity Disease Active [facility] 3[facility]13 [facility] 00:00: Medical [address] [place] [address] Malfunctio Malfunctio Disease Active [facility] n of n of 3-13 [facility] intratheca intratheca 00:00: Me dical l infusion l infusion 00 Ce nter pump pump AVM AVM Diagnosis Active 2017-06-28 Mem oria RUPTURE RUPTURE 2- 17:54:00 l Active 00:00: Demar 05/03/2016 00 [facility] BRAIN BRAIN Diagnosis Active 2016-05-24 Mem oria INJURY INJURY - 11:49:00 l Active 00:00: Demar 05/03/2016 00 MH [facility] HEADACHE HEADACHE Diagnosis Active 2016-04-25 Memoria Active 04-25 15:25:00 l 04/25/2016 00:00: Mauricio rizo [address],[facility] EVAL FOR EVAL FOR Diagnosis Active 2016-05-02 Memoria IP IP Active 04-10 08:53:00 l 04/10/2016 00:00: Mauricio PURI [facility] 00 FALL FALL Diagnosis Active 2016-04-08 Mem oria Active 04-08 16:24:00 l 04/08/2016 00:00: Mauricio rizo [address] LEFT LEFT Diagnosis Active 2016-03-31 Mem oria SHOULDER SHOULDER 03-31 18:42:00 l PAIN PAIN 00:00: Demar Active 00 03/31/2016 [facility] I63.9 - I63.9 - Diagnosis Active 2016-05-08 Memoria "CEREBRAL "CEREBRAL 03-27 16:00:00 l INFARCTION INFARCTION 00:01: Wilson davalos , , 00 UNSPECIFI" UNSPECIFI" Active 03/27/2016 JAXSON Benz F/U F/U Diagnosis Active 2015-032016-02-09 Mem oria Active 04-05 11:12:00 l 02/04/2016 00:00: Mauricio PURI [facility] 00 SHUNT SHUNT Diagnosis Active 2015-12-14 Mem oria MALFUNCTIO MALFUNCTIO 12-07 22:07:00 l N N Active 00:00: Demar 12/08/2015 00 [facility] Acquired Acquired Disease Active [facility] equinovaru equinovaru 11-07 [place] [facility] s s 00:00: Medical deformity deformity 00 Cent er Cognitive Cognitive Disease Active [facility] deficit, deficit, 11-02 Colleg e post-strok post-strok 00:00: of e e 00 Medicin e Hypertroph Hypertroph Disease Active [facility] scar of ic scar of 11-02 Co llege skin skin 00:00: of 00 Medicin e Visual Visual Disease Active [facility] disturbanc disturbanc 11-02 Co llege es es 00:00: of 00 Medicin e CVA CVA Diagnosis Active 2016-01-05 Mem oria Active 11-02 22:23:00 l 11/03/2015 00:00: Mauricio rizo [facility] 00 DECONTITIO DECONTITI Diagnosis Active 2015-11-09 Memoria VIVIANA ONED 11-02 15:14:00 l Active 00:00: Demar 11/03/2015 00 [facility] Equinovaru Equinovaru Disease Active [facility] 11[facility]02 [facility] deformity, deformity, 00:00: Me dical acquired, acquired, 00 Cent er left left Equinovaru Equinovaru Disease Active [facility] acquired s acquired 10-09 Co llege deformity deformity 00:00: of 00 Medicin e Spastic Spastic Disease Active [facility] hemiplegia hemiplegia 09-20 Co llege affecting affecting 00:00: of nondominan nondominan 00 Me dicin t side t side e Left ankle Left ankle Disease Active [facility] contractur contractur 09-20 Co llege e e 00:00: of 00 Medicin e Spastic Spastic Disease Active Univers hemiplegia hemiplegia 7 it y of affecting affecting 00:[place] left 00 Medical nondominan nondominan Br anch t side t side SPASTIC SPASTIC Diagnosis Active 2015-08-20 Memoria HEMIPLEGIA HEMIPLEGIA 08-12 06:25:00 l Active 00:00: Demar 08/13/2015 00 [facility] ITB TRIAL ITB TRIAL Diagnosis Active 2015-08-06 Memoria Active 07-26 07:54:00 l 07/27/2015 00:00: Mauricio rizo [facility] 00 ARTERIOVEN ARTERIOVE Diagnosis Active 2015-08-02 Memoria OUS NOUS 4-29 05:18:00 l MALFORMATI MALFORMATI 00:00: Wilson davalos ON Q28.2 ON Q28.2 00 Active 07/16/2015 [facility] PHENOL PHENOL Diagnosis Active 2015-05-24 Me moria Active 04-30 08:49:00 l 04/30/2015 00:00: Mauricio rizo [facility] 00 STROKE STROKE Diagnosis Active 2015-06-07 Me moria Active 04-29 11:45:00 l 04/29/2015 00:00: Muaricio rizo [facility] 00 RIGHT CPA RIGHT Diagnosis Active 2015-04-28 Memoria CPA Active 04-15 07:25:00 l 04/15/2015 00:00: Mauricio rizo [address] EVAL-IP EVAL-IP Diagnosis Active 2015-04-28 Memoria STROKE STROKE - 12:15:00 l Active 00:00: Demar 04/07/2015 00 [facility] STROKE AND STROKE Diagnosis Active 2015-01-10 Memoria BI AND BI - 16:16:00 l Active 00:00: Demar 11/06/2014 00 [facility] HEAD PAIN HEAD PAIN Diagnosis Active 2014-04-09 Memoria Active 04-05 22:00:00 l 04/05/2014 00:00: Mauricio rizo [address] [place] 331.3 - 331.3 - Diagnosis Active 2013-032014-06-15 Memoria COMMUNICAT COMMUNICAT - 17:28:00 l HYDR HYDR 00:01: Demar Active 00 02/09/2014 OPID Demar Communicat Communica Problem Active 2013-032021-11-17 Memoria ing ting 04-08 00:32:03 l hydrocepha hydrocepha 00:00: Wilson khan erin 00 (disorder) (disorder) Active 02/06/2014 Problem 11/17/2021 Data migrated from [facility] on 11/10/14. Alisiacher Neuro,[facility], [facility], MELISSA Benz,[facility], Boris Zuniga [facility], [facility], Shock 738.19 - 738.19 - Diagnosis Active 2013-032014-06-14 Memoria ACQ HEAD ACQ HEAD 10:21:00 l DEFORM DEFORM 00:01: Mobile Active 01/15/2014 MELISSA Benz 852.20 852.20 Diagnosis Active 2013-032014-02-22 M emoria Active 15:23:00 l 01/07/2014 00:00: Mauricio rizo [address] BRAIN STEM BRAIN Diagnosis Active 2014-01-15 Memoria AV STEM AV 09-29 16:10:00 l MALFORMATI MALFORMATI 00:00: He rmann ON ON Active 09/29/2013 [facility] SUBARACHNO SUBARACHN Diagnosis Active 2015-05-29 Memoria ID OID 03-19 12:16:00 l HEMMORHAGE HEMMORHAGE 23:59: He rmann Active 00 03/19/2000 [facility] Presence Presence Problem 2018-05-21 Memoria of of 15:39:31 l cerebrospi cerebrospi Wilson davalos nal fluid nal fluid drainage drainage device device 05/21/2018 [facility], Shock Body mass Body mass Problem 2018-05-21 Memoria index index 15:39:31 l (BMI) (BMI) Demar 37.0-37.9, 37.0-37.9, adult adult 05/21/2018 Shock Hemiplegia Hemiplegi Problem 2017-10-05 Memoria , a, 06:57:47 l unspecifie unspecifie Wilson davalos d d affecting affecting left left nondominan nondominan t side t side 10/05/2017 [facility] Other Other Problem 2017-10-05 Memor ia specified specified 06:57:47 l anxiety anxiety Mobile disorders disorders 10/05/2017 [facility] NIHSS NIHSS Problem 2017-10-05 Memor ia score 7 score 7 06:57:47 l 10/05/2017 Mauricio rizo [facility] Facial Facial Problem 2017-10-05 Mem oria weakness weakness 06:57:47 l 10/05/2017 Mauricio rizo [facility] Dysarthria Dysarthri Problem 2017-10-05 Memoria and a and 06:57:47 l anarthria anarthria Herm shelton 10/05/2017 [facility] Type 2 Type 2 Problem 2017-10-05 [place] diabetes diabetes 06:57:47 l mellitus mellitus Mauricio rizo with with hyperglyce hyperglyce cliff cliff 10/05/2017 [facility] Cocaine Cocaine Problem 2017-10-05 M emoria abuse, abuse, 06:57:47 l uncomplica uncomplica He rmann yanely yanely 10/05/2017 [facility] Enlarged Enlarged Problem 2017-10-05 Memoria prostate prostate 06:57:47 l without without Demar lower lower urinary urinary tract tract symptoms symptoms 10/05/2017 [facility] Epilepsy, Epilepsy, Problem 2017-10-05 Memoria unspecifie unspecifie 06:57:47 l d, not d, not Mobile intractabl intractabl e, without e, without status status epilepticu epilepticu s s 10/05/2017 [facility] Illness, Illness, Problem 2019-02-09 Memoria unspecifie unspecifie 23:27:13 l d d Demar 02/09/2019 [facility] Encephalop Encephalo Problem 2019-02-23 Memoria ruiz magana, 23:08:45 l unspecifie unspecifie He rmann d d 02/23/2019 [facility] 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:12: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 Mauricio n peripheral on of vascular peripheral system, vascular unspecifie system, d unspecifie d 08/12/2018 [facility] Other Other Problem 2018-08-12 Memor ia specified specified 11:12:30 l disorders disorders Herm shelton of brain of brain 08/12/2018 [facility] Arterioven Arteriove Problem 2016-07-14 Memoria ous nous 00:12:22 l malformati malformati He rmann on, site on, site unspecifie unspecifie d d 07/14/2016 [facility] Aneurysm Aneurysm Problem Resolve 2021-11-17 Memoria (disorder) (disorder) d 00:32:03 l Resolved Demar Problem 11/17/2021 [facility], [facility], MELISSA Benz,[facility], MELISSA Nieves,[facility] MELISSA Mederos,[facility], [facility], Shock Gastrointe Gastroint Problem Resolve 2021-11-17 Memoria stinal estinal d 00:32:03 l hemorrhage hemorrhage He rmann (disorder) (disorder) Resolved Problem 11/17/2021 [facility], [facility], MELISSA Benz,[facility], OPID Ezequiel,[facility], [facility], Shock Increased Increased Problem Resolve 2021-11-17 Memoria frequency frequency d 00:32:03 l of of Demar urination urination (finding) (finding) Resolved Problem 11/17/2021 DUE TO GOLF COURSE ASSISTANT SHUNT MALFUNCTIO N [facility], [facility], MELISSA Benz,[facility], MELISSA Nieves,[facility], [facility], Shock None None Problem Resolve 2021-11-17 [place] (qualifier (qualifier d 00:32:03 l value) value) Mobile Resolved Problem 11/17/2021 [facility], [facility], MELISSA Benz,[facility], MELISSA Nieves,[facility] MELISSA Mederos,[facility], [facility] Shock Obstructiv Obstructi Problem Resolve 2021-11-17 Memoria e sleep ve sleep d 00:32:03 l apnea apnea Mobile syndrome syndrome (disorder) (disorder) Resolved Problem 11/17/2021 [facility], [facility], MELISSA Benz,[facility], MELISSA Nieves,[facility], [facility] Shock Anxiety Anxiety Problem Active 2021-11-17 Me moria (finding) (finding) 00:32:03 l Active Demar Problem 11/17/2021 [facility], [facility], MELISSA Benz,[facility], MELISSA Nieves,[facility] MELISSA Mederos,[facility], [facility], Shock Dysarthria Dysarthri Problem Active 2021-11-17 Memoria (finding) a 00:32:03 l (finding) Mobile Active Problem 11/17/2021 [facility] Neuro,[facility], [facility], MELISSA Benz, MELISSA Nieves,[facility], [facility], Shock Headache Headache Problem Active 2021-11-17 Memoria (finding) (finding) 00:32:03 l Active Mobile Problem 11/17/2021 DUE TO GOLF COURSE ASSISTANT SHUNT MALFUNCTIO N [facility], [facility], MELISSA Benz,[facility], MELISSA Nieves,[facility], [facility], Shock Hemiparesi Hemipares Problem Active 2021-11-17 Memoria s is 00:32:03 l (disorder) (disorder) He rmann Active Problem 11/17/2021 [facility], [facility], MELISSA Benz, MELISSA Nieves,[facility], [facility] [place], Shock Hypertensi Problem Active 2021-11-17 M emoria ve Hypertensi 00:32:03 l disorder, ve Demar systemic disorder, arterial systemic (disorder) arterial (disorder) Active Problem 11/17/2021 [facility], [facility], MELISSA Benz,[facility], MELISSA Nieves,[facility] MELISSA Mederos,[facility], [facility] [place], Shock Obesity Obesity Problem Active 2021-11-17 Me moria (disorder) (disorder) 00:32:03 l Active Mobile Problem 11/17/2021 [facility], [facility], MELISSA Benz,[facility], MELISSA Nieves,[facility], [facility] [place], Shock Unsteady Unsteady Problem Active 2021-11-17 Memoria when when 00:32:03 l standing standing Mauricio n (finding) (finding) Active Problem 11/17/2021 DUE TO GOLF COURSE ASSISTANT SHUNT MALFUNCTIO N [facility], [facility], MELISSA Benz,[facility], MELISSA Nieves,[facility], [facility] [place], Shock Diabetes Diabetes Problem Active 2021-11-17 Memoria mellitus mellitus 00:32:03 l type 2 type 2 Demar (disorder) (disorder) Active Problem 11/17/2021 Automatica lly added by Discern Expert with order of Add Problem Diabetes Type II on August 26, 2019 10:43:00 CDT with order ID: [id number] 5.0 entered by PHILLIP ELLISON, MISSY HERNANDEZ. [employer] [facility] [employer] [facility], MELISSA Nieves Disease of Disease Problem Active 2021-11-17 Memoria brain of brain 00:32:03 l (disorder) (disorder) He rmann Active Problem 11/17/2021 [facility] [place],[facility] Finding of Finding Problem Active 2021-11-17 Memoria functional of 00:32:03 l performanc functional He rmann e and performanc activity e and (finding) activity (finding) Active Problem 11/17/2021 [facility], MELISSA [place],[facility] Leukocytos Leukocyto Problem Active 2021-11-17 Memoria is sis 00:32:03 l (disorder) (disorder) He rmann Active Problem 11/17/2021 [facility] Pneumonia Pneumonia Problem Active 2021-11-17 Memoria (disorder) (disorder) 00:32:03 l Active Mobile Problem 11/17/2021 [facility] Systemic Systemic Problem Active 2021-11-17 Memoria infection infection 00:32:03 l (disorder) (disorder) He rmann Active Problem 11/17/2021 [facility] ANESTHESIA Diagnosis Active 2018-10-03 Memoria OF SKIN ANESTHESIA 14:21:00 l OF SKIN Mobile Active [facility] [place] ENCEPHALOP ENCEPHALO Diagnosis Active 2019-02-26 Memoria ATHY, RUIZ, 22:03:00 l UNSPECIFIE UNSPECIFIE He anoop D D Active [facility] ANOXIC ANOXIC Diagnosis Active 2019-05-24 Me moria BRAIN BRAIN 16:03:00 l DAMAGE, DAMAGE, Mobile NOT NOT ELSEWHERE ELSEWHERE CLASS CLASS Active [facility] INTCRAN INTCRAN Diagnosis Active 2019-09-16 Memoria INJ W/O INJ W/O 11:43:00 l LOSS OF LOSS OF Demar CONSCIOUSN CONSCIOUSN ESS, I ESS, I Active [facility] OBSTRUCTIV OBSTRUCTI Diagnosis Active 2019-05-24 Memoria E VE 16:03:00 l HYDROCEPHA HYDROCEPHA He rmann ERIN ERIN Active [facility] ILLNESS, ILLNESS, Diagnosis Active 2019-02-17 Memoria UNSPECIFIE UNSPECIFIE 22:19:00 l D D Active Demar [facility] OTHER OTHER Diagnosis Active 2020-06-25 Me moria MUSCLE MUSCLE 14:08:00 l SPASM SPASM Mobile Active [facility] CRAMP AND CRAMP AND Diagnosis Active 2020-06-25 Memoria SPASM SPASM 14:08:00 l Active Mauricio rizo [facility] WEAKNESS WEAKNESS Diagnosis Active 2020-08-09 Memoria Active 21:56:00 l [facility] ADMINISTRT ADMINISTR Diagnosis Active 2014-01-15 Memoria VE ENCOUNT TVE 16:10:00 l NOS ENCOUNT Mobile NOS Active [facility] COMMUNICAT COMMUNICA Diagnosis Active 2014-02-02 Memoria HYDROCEPHA T 22:14:00 l ERIN HYDROCEPHA Mauricio KHAN Active [facility] ARTERIOVEN Diagnosis Active 2018-01-22 Memoria OUS ARTERIOVEN 13:57:00 l MALFORMATI OUS Mauricio n ON OF MALFORMATI CEREBRAL V ON OF CEREBRAL V Active [facility] OTHER OTHER Diagnosis Active 2016-01-05 Mem oria CEREBROVAS CEREBROVAS 22:23:00 l CULAR CULAR Demar DISEASE DISEASE Active [facility] LEFT SIDE LEFT SIDE Diagnosis Active 2015-11-12 Memoria HEMIPLEGIA HEMIPLEGIA 16:47:00 l Active Mauricio rizo [facility] [place] ARTERIOVEN ARTERIOVE Diagnosis Active 2017-06-28 Memoria OUS NOUS 17:54:00 l MALFORMATI MALFORMATI He rmann ON, SITE ON, SITE UNSPECI UNSPECI Active [facility] COMMUNICAT COMMUNICA Diagnosis Active 2016-10-17 Memoria ING TING 08:42:00 l HYDROCEPHA HYDROCEPHA He rmann ERIN ERIN Active [facility] DIARRHEA, DIARRHEA, Diagnosis Active 2016-12-19 Memoria UNSPECIFIE UNSPECIFIE 05:20:00 l D D Active Demar [facility] OTHER OTHER Diagnosis Active 2017-10-25 Mem oria MALAISE MALAISE 15:26:00 l Active Mauricio n Rehabilita tion HYDROCEPHA HYDROCEPH Diagnosis Active 2017-07-17 MemMIKE Rizzo, 22:07:00 l UNSPECIFIE UNSPECIFIE He rmann D D Active [facility] Elevated Elevated Problem 2018-05-21 Memoria white white 15:39:31 l blood cell blood cell He rmann count, count, unspecifie unspecifie d d 05/21/2018 [facility], Shock Altered Altered Problem 2018-05-21 Pa moria mental mental 15:39:31 l status, status, Demar unspecifie unspecifie d d 05/21/2018 Shock Encounter Problem 2018-05-21 Pa moria for Encounter 15:39:31 l immunizati for Mauricio n on immunizati on 05/21/2018 Shock Essential Essential Problem 2018-05-21 Memoria (primary) (primary) 15:39:31 l hypertensi hypertensi He rmann on on 05/21/2018 [facility] Shock Type 2 Type 2 Problem 2018-05-21 [place] diabetes diabetes 15:39:31 l mellitus mellitus Mauricio n without without complicati complicati ons ons 05/21/2018 Shock Hemiplegia Hemiplegi Problem 2018-05-21 Katharina and 15:39:31 l hemiparesi hemiparesi He rmann s s following following cerebral cerebral infarction infarction affecting affecting left left non-domina non-domina nt side nt side 05/21/2018 Shock Dysarthria Dysarthri Problem 2018-05-21 Memoria following a 15:39:31 l cerebral following Chiquita nn infarction cerebral infarction 9 Shock Other Other Problem 2018-05-21 Memor ia muscle muscle 15:39:31 l spasm spasm Demar 05/21/2018 Shock Obstructiv Obstructi Problem 2018-05-21 Memanderson e sleep ve sleep 15:39:31 l apnea apnea Demar (adult) (adult) (pediatric (pediatric ) ) 05/21/2018 [facility] Shock Paraplegia Paraplegi Problem 2018-05-21 maksim Bentley, 15:39:31 l unspecifie unspecifie He rmann d d 05/21/2018 Shock Obesity, Obesity, Problem 2018-05-21 Memoria unspecifie unspecifie 15:39:31 l d d Mobile 05/21/2018 Shock Major Major Problem 2018-05-21 Memor ia depressive depressive 15:39:31 l disorder, disorder, Herm shelton single single episode, episode, unspecifie unspecifie d d 05/21/2018 Shock Anxiety Anxiety Problem 2018-05-21 Pa moria disorder, disorder, 15:39:31 l unspecifie unspecifie He rmann d d 05/21/2018 Shock Hyperlipid Hyperlipi Problem 2018-05-21 Memoria emia, demia, 15:39:31 l unspecifie unspecifie He rmann d d 05/21/2018 [facility], Shock Fall from Fall Problem 2018-05-21 Pa moria bed, from bed, 15:39:31 l initial initial Demar encounter encounter 05/21/2018 Shock Presence Presence Problem 2018-05-21 Memoria of other of other 15:39:31 l specified specified Herm shelton functional functional implants implants 05/21/2018 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 (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) (current) 15:39:31 l use of use of Demar oral oral hypoglycem hypoglycem ic drugs ic drugs 05/21/2018 [facility], 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 (current) (current) 15:39:31 l use of use of Mobile aspirin aspirin 05/21/2018 Shock [id number] Current Problem Common moderate Spirit episode of - [facility] major [facility] depressive [facility] disorder [facility] prior episode [id number] Hemiplegia Problem C ommon [id number] affecting Spirit left - [facility] nondominan [facility] t side, [facility] unspecifie Medica l d Center etiology, unspecifie d hemiplegia type [id number] Hemorrhagi Problem Co mmon c stroke Spirit - [facility] [id number] Mixed Problem Common hyperlipid Spirit emia - [facility] [id number] Type 2 [place] [id number] diabetes Spirit mellitus - [facility] with [facility] hyperglyce 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[facility] malformati [facility] History of Past Illness Condition Condition Condition Status Onset Resolution Last Treating Co mments Source Name Details Category Date Date Treatment Clinician Date Arterioven Arteriove Problem 2017-032018-08-12 2018-08-12 Memoria ous nous 03-28 11:12:30 11:12:30 l malformati malformati 04:27: Wilson rmann on of on of 21 cerebral cerebral vessels vessels 01/26/2018 08/12/2018 [facility] Communicat Problem 2018-05-21 2018-05-21 Memoria ing Communicat 11-13 15:39:31 15:39:31 l hydrocepha ing 03:38: Mauricio khan hydrocepha 33 erin 11/13/2017 05/21/2018 [facility], Shock Transient Transient Problem 2017-10-05 2017-10-05 Memoria cerebral cerebral 07-10 06:57:47 06:57:47 l ischemic ischemic 03:03: Mauricio rizo attack, attack, 36 unspecifie unspecifie d d 07/10/2017 8 [facility] Discharge Discharge Problem 2016-04-28 2016-04-28 Memoria Diagnosis: Diagnosis: 04-25 04:57:17 04:57:17 l Headache Headache 06:00: Mauricio rizo 04/25/2016 7 [facility] Discharge Discharge Problem 2016-04-11 2016-04-11 Memoria Diagnosis: Diagnosis: 04-08 02:46:17 02:46:17 l Acute pain Acute pain 06:00: Wilson rmann of left of left 00 shoulder shoulder 04/08/2016 04/11/2016 [facility] Discharge Discharge Problem 2016-04-11 2016-04-11 Memoria Diagnosis: Diagnosis: 04-08 02:46:17 02:46:17 l Closed Closed 06:00: Mobile comminuted comminuted 00 fracture fracture of left of left humerus humerus 04/08/2016 04/11/2016 [facility] Discharge Discharge Problem 2016-04-03 2016-04-03 Memoria Diagnosis: Diagnosis: 03-31 05:33:49 05:33:49 l Fracture Fracture 06:00: Mauricio n of humeral of humeral 00 head, head, closed closed 03/31/2016 04/03/2016 [facility] Discharge Discharge Problem 2016-04-03 2016-04-03 Memoria Diagnosis: Diagnosis: 03-31 05:33:49 05:33:49 l Closed Closed 06:00: Demar fracture fracture 00 dislocatio dislocatio n of left n of left shoulder shoulder 03/31/2016 04/03/2016 [facility] Discharge Discharge Problem 2016-04-03 2016-04-03 Memoria Diagnosis: Diagnosis: 03-31 05:33:49 05:33:49 l Accidental Accidental 06:00: He rmann fall fall 00 03/31/2016 04/03/2016 [facility] Discharge Discharge Problem 2014-09-20 2014-09-20 Memoria Diagnosis: Diagnosis: 09-17 04:52:23 04:52:23 l Headache Headache 05:00: Mauricio n 09/17/2014 00 09/20/2014 [facility] Allergies, Adverse Reactions, Alerts Allergy Allergy Status Severity Reaction(s) Onset Inactive Treating Comm ents Source Name Type Date Date Clinician NO KNOWN Drug Active [facility] ALLERGIE Class ity of [facility] NO KNOWN Allergy Active [facility] Social History Social Habit Start Date Stop Date Quantity Comments Source History of Common Spirit - Tobacco Use [facility] Alcohol intake 2021-12-14 2021-12-[address] [facility] es 00:00:00 00:00:00 non-drinker of Medical Ce nter alcohol (finding) Exposure to 2021-07-25 2021-08-24 Not sure [facility] SARS-CoV-2 00:00:00 13:21:00 (event) Tobacco use and 2015-10-29 2015-10-[address] [facility] [facility] kes exposure 00:00:00 00:00:00 [facility] Social History 2013-09-30 2013-09-30 [facility] Morales rosario 07:09:16 07:09:16 [birth year] At [birth year] HIMANSHU Hamm 00:00:00 00:00:00 [facility] Smoking Status Start Date Stop Date Source Tobacco smoking [facility] consumption unknown Former Smoker 2021-12-20 00:00:00 2021-12-20 Common Spiri [facility] Ce nter Never smoked tobacco [facility] ege of Medicine Medications Ordered Filled Start Stop Current Ordering Indication Dosage Frequency Signature Comments Components Source Medication Medication Date Date Medication? Clinician (SIG) Name Name gabapentin 2021-03 Yes [id number] 600mg Take 600 [facility] (NEURONTIN) 0-12 mg by [place] 600 MG 09:36: mouth. of tablet 52 Medicin e levetiracet 2021-03 Yes [id number] 500mg Take 500 [facility] am (KEPPRA) 0-12 mg by [place] 500 MG 09:36: mouth two of tablet 52 times Medicin daily. e Tamsulosin 2021-03 Yes [id number] Take by [facility] HCl 0.4 MG 0-12 mouth. [place] CAPS 09:36: of 52 Medicin e doxepin 2021-03 Yes [id number] 10mg Take 10 mg [facility] (SINEQUAN) 0-12 by mouth Colle ge 10 MG 09:36: nightly. of capsule 52 Medicin e sulfamethox 2021-03- No [id number] 1{tbl} Take 1 [facility] azole-trime 0-12 10-23 Tablet by Co llege thoprim 00:00: 04:59 mouth two of (BACTRIM 00 :00 times Medicin DS, SEPTRA daily for e DS) 800-160 10 days. MG per tablet atorvastati Yes 80mg QD Take [address] [facility] (LIPITOR) 9-28 by mouth Luke s 20 MG 14:31: daily. Medical tablet [address] [place] [address] gabapentin Yes 300mg Q.[id number] Take [address] (NEURONTIN) 9-28 [id number] mg by L ukes 300 MG 14:31: 3D mouth 3 Medical capsule 16 (three) Center times daily. metFORMIN 2022-0 Yes 1000mg Take 1,[address] (GLUCOPHAGE 9-28 mg by [facility]ukes ) 1000 MG 14:31: mouth 2 Medic al tablet 16 (two) Center times daily with breakfast and dinner. levETIRAcet 2022-0 Yes 500mg Q.5D Take [address] am (KEPPRA) 9-28 mg by [facility] 500 MG 14:31: mouth 2 Medical tablet 16 (two) Center times daily. tamsulosin 202-0 Yes .4mg QD Take 0.[address] (FLOMAX) 9-28 mg by Lukes 0.4 mg Cap 14:31: mouth Medica l 24 hr 16 daily. Center capsule traZODone 2021-0 Yes 50mg QD Take [address] (DESYREL) 9-28 by mouth [facility]ukes 50 MG 14:31: nightly. Medical tablet 16 [place] sertraline 2021-0 Yes 100mg QD Take [address] (ZOLOFT) 9-28 mg by [facility]ukes 100 MG 14:31: mouth Medical tablet 16 daily. [place] atorvastati 2021-0 Yes 80mg QD Take [address] n (LIPITOR) 9-28 by mouth Luke s 20 MG 14:31: daily. Medical tablet 16 [place] gabapentin 2021-0 Yes 300mg Q.[id number] Take [address] (NEURONTIN) 9-28 [id number] mg by L ukes 300 MG 14:31: 3D mouth 3 Medical capsule 16 (three) Center times daily. metFORMIN 2022-0 Yes 1000mg Take 1,[address] (GLUCOPHAGE 9-28 mg by [facility]ukes ) 1000 MG 14:31: mouth 2 Medic al tablet 16 (two) Center times daily with breakfast and dinner. levETIRAcet 2022-0 Yes 500mg Q.5D Take [address] am (KEPPRA) 9-28 mg by [facility] 500 MG 14:31: mouth 2 Medical tablet 16 (two) Center times daily. tamsulosin 2022-0 Yes .4mg QD Take 0.[address] (FLOMAX) 9-28 mg by Lukes 0.4 mg Cap 14:31: mouth Medica l 24 hr 16 daily. Center capsule traZODone 0 Yes 50mg QD Take [address] (DESYREL) 9-28 by mouth Lukes 50 MG 14:31: nightly. Medical tablet 16 [place] sertraline 0 Yes 100mg QD Take [address] (ZOLOFT) 9-28 mg by [facility]ukes 100 MG 14:31: mouth Medical tablet 16 daily. [place] atorvastati 0 Yes 80mg QD Take [address] n (LIPITOR) 9-28 by mouth Luke s 20 MG 14:31: daily. Medical tablet 16 [place] gabapentin 0 Yes 300mg Q.[id number] Take [address] (NEURONTIN) 9-28 [id number] mg by L ukes 300 MG 14:31: 3D mouth 3 Medical capsule 16 (three) Center times daily. metFORMIN Yes 1000mg Take 1,[address] (GLUCOPHAGE 9-28 mg by Lukes ) 1000 MG 14:31: mouth 2 Medic al tablet 16 (two) Center times daily with breakfast and dinner. levETIRAcet 0 Yes 500mg Q.5D Take [address] am (KEPPRA) 9-28 mg by [facility]ukes 500 MG 14:31: mouth 2 Medical tablet 16 (two) Center times daily. tamsulosin Yes .4mg QD Take 0.[address] (FLOMAX) 9-28 mg by Lukes 0.4 mg Cap 14:31: mouth Medica l 24 hr 16 daily. [place] capsule traZODone 0 Yes 50mg QD Take [address] (DESYREL) 9-28 by mouth Lukes 50 MG 14:31: nightly. Medical tablet 16 [place] sertraline 0 Yes 100mg QD Take [address] (ZOLOFT) 9-28 mg by [facility]ukes 100 MG 14:31: mouth Medical tablet 16 daily. [place] docusate 2021- No 100mg Q.5D Take 1 [facility] S t sodium 12-13 capsule Lukes (COLACE) 00:00: 23:59 (100 mg Medic al 100 MG 00 :00 total) by Center capsule mouth 2 (two) times daily for 10 days. acetaminoph 2021- No 1{tbl} Take [address] en-codeine - 10-07 tablet by Yana es (Tylenol-Co 00:00: 23:59 mouth Medi cheryl deine #3) 00 :00 every 4 Center 300-30 mg (four) per tablet hours as needed for up to 10 days. Max Daily Amount: 6 tablets docusate 2021-0 2021- No 100mg Q.5D Take 1 [facility]I S t sodium - 10- capsule Lukes (COLACE) 00:00: 23:59 (100 mg Medic al 100 MG 00 :00 total) by Center capsule mouth 2 (two) times daily for 10 days. acetaminoph 2021-2021- No 1{tbl} Take [address] en-codeine - 10- tablet by Yana es (Tylenol-Co 00:00: 23:59 mouth Medi cheryl deine #3) 00 :00 every 4 Center 300-30 mg (four) per tablet hours as needed for up to 10 days. Max Daily Amount: 6 tablets docusate 2021-0 2021- No 100mg Q.5D Take 1 [facility] S t sodium - 10- capsule [facility]ukes (COLACE) 00:00: 23:59 (100 mg Medic al 100 MG 00 :00 total) by Center capsule mouth 2 (two) times daily for 10 days. acetaminoph 2021- No 1{tbl} Take [address] en-codeine -12 01- tablet by Yana es (Tylenol-Co 00:00: 23:59 mouth Medi cheryl deine #3) 00 :00 every 4 Center 300-30 mg (four) per tablet hours as needed for up to 10 days. Max Daily Amount: 6 tablets baclofen 2 No 80,000 Memor ia mg/mL 8-29 microgram, l intrathecal 20:00: Route: Herm shelton solution 00 INTRATHECA L, DARI, Dosing Weight 118.182, kg, 40ml = 80,000mcg, Start date: 11/14/21 15:00:00 CDT, Duration: 30 day, Stop date: 12/14/21 14:59:00 CDT gabapentin 2021-0 Yes [id number] 600mg Take 600 [facility] (NEURONTIN) 6-16 mg by [place] 600 MG 15:05: mouth. of tablet 18 Medicin e levetiracet 0 Yes [id number] 500mg Take 500 [facility] am (KEPPRA) 6-16 mg by [place] 500 MG 15:05: mouth two of tablet 18 times Medicin daily. e Tamsulosin 2021-0 Yes [id number] Take by [facility] HCl 0.4 MG 6-16 mouth. [place] CAPS 15:05: of 18 Medicin e doxepin 2021-0 Yes [id number] 10mg Take 10 mg [facility] (SINEQUAN) 6-16 by mouth Colle ge 10 MG 15:05: nightly. of capsule 18 Medicin e ondansetron 2021- No 4mg 4 mg, Slow Univers (ZOFRAN 08-25- IV Push, ity of (PF)) 14:15: 14:10 ONCE, 1 [place] injection 4 00 :00 dose, On Medi cheryl mg Abbie 08/25/21 Branch at 0915, LEW ondansetron 0 Yes [id number] 4mg Take 1 Univers 4 mg - tablet by ity of disintegrat 00:00: mouth [place] ing tablet 00 every 4 Medica l (four) Branch hours as needed for Nausea and Vomiting (N/V). ondansetron 2021-0 Yes [id number] 4mg Take 1 Univers 4 mg -09 tablet by ity of disintegrat 00:00: mouth [place] ing tablet 00 every 4 Medica l (four) Branch hours as needed for Nausea and Vomiting (N/V). methylpredn Yes 60mg 60 mg, Univ ers isolone sod 08-22 Slow IV ity o f succ 14:00: Push, [place] (SOLU-MEDRO 00 DAILY, Medica l L) First dose Branch injection (after 60 mg last modificati on) on 08/22/21 at 0900, Until Discontinu ed, Routine hydrocortis 2021- No 10mg Take 10 mg Univers one 10 mg 08-22 by mouth ity o f tablet 12:11: 00:00 every [place] 03 :00 morning. Medical Branch methylPREDN 0 Yes [id number] Take by Univers ISolone 4 - mouth ity of mg tablets 00:00: SEE-INSTRU [place] 00 CTIONS. Medical follow Branch package directions methylPREDN 0 Yes [id number] Take by [facility] 4 -06 mouth ity of mg tablets 00:00: SEE-INSTRU [place] 00 CTIONS. Medical follow Branch package directions methylPREDN 2021-0 Yes [id number] Take by [facility] 4 6- mouth ity of mg tablets 00:00: SEE-INSTRU [place] 00 CTIONS. Medical follow Branch package directions methylPREDN 0 Yes [id number] Take by [facility] 4 6-06 mouth ity of mg tablets 00:00: SEE-INSTRU [place] 00 CTIONS. Medical follow Branch package directions docusate Yes 100mg 100 mg, Unive rs (COLACE) 08-21 Oral, ity of capsule 100 21:15: DAILY, [place] mg 00 First dose Medical on [place] Branch 08/21/21 at 1615, Until Discontinu ed, Routine furosemide 2021- No 40mg 40 mg, Univ ers (LASIX) 08-21 06-05 Slow IV ity of injection 21:15: 22:41 Push, [place] 40 mg 00 :00 ONCE, 1 Medical dose, On Branch [place] 08/21/21 at 1615, Routine sodium 2021- No 4mL 4 mL, Univers chloride 7% 08-21 06-08 Inhalation i ty of (HYPER-OREN) 01:00: 00:59 , BID, 6 [place] nebulizer 00 :00 doses, Medical solution 4 First dose Bra nch mL on 08/20/21 at 2000, Last dose on Sun08/23/21 at 0800, Routine ampicillin- Yes 3g 3 g, IV Uni vers sulbactam 08-18 Piggyback, ity of (UNASYN) 3 21:15: Q6H ABX, Kwab[place] as g in NaCl 00 First dose Medi cheryl 0.9% (NS) on Abbie Branch 100 mL 08/18/21 at MINI-BAG 1615, Until Discontinu ed, Administer over 30 Minutes, 100 mL
Reas on for Anti-Infec tive: Documented Infection< br>Documen yanely Infection Site: Respirator y
Durat ion of Therapy: 7 days acetylcyste No 4mL 800 mg (4 Univers ine 08-18 06-03 mL), ity of (MUCOMYST) 17:00: 04:24 Inhalation [place] 200 mg/mL 00 :00 , Q6H, 3 Medica l (20 %) doses, Branch solution First dose 800 mg on Abbie 08/18/21 at 1200, Last dose on Sun08/19/21 at 0000, Routine methylpredn No 60mg 60 mg, Uni vers isolone sod 08-18 06-05 Slow IV ity of succ 15:15: 20:12 Push, [place] (SOLU-MEDRO 00 :49 Q12H, Medical L) First dose Branch injection on Babie 60 mg 08/18/21 at 1015, Until Discontinu ed, Routine iopamidol No [id number] 80mL 80 mL, U nivers (ISOVUE 08-18 Intravenou ity o f 370-500 mL) 05:38: 05:38 s, ONCE, 1 [place] injection 00 :00 dose, On Medica l 80 mL Abbie 08/18/21 Branch at 0100, Routine ceFEPIme No 2000mg 2,000 mg, U nivers (MAXIPIME) 08-17 IV ity of 2,000 mg in 02:45: 20:05 Piggyback, [place] NaCl 0.9% 00 :04 Q8H ABX, Medica l (NS) 50 mL First dose Bra [facility] MINI-BAG on Sun08/16/21 at 2145, Until Discontinu ed, Administer over 240 Minutes, 50 mL
Reas on for Anti-Infec tive: Empiric Therapy for Suspected Infection< br>Empiric Therapy Site: Respirator y
Durat ion of therapy: 7 days ceFEPIme No 2000mg 2,000 mg, U nivers (MAXIPIME) 08-16 IV ity of 2,000 mg in 19:15: 22:36 Piggyback, [place] NaCl 0.9% 00 :00 ONCE, 1 Medical (NS) 50 mL dose, On Branc h MINI-BAG Sun08/16/21 at 1415, Administer over 240 Minutes, 50 mL
Reas on for Anti-Infec tive: Empiric Therapy for Suspected Infection< br>Empiric Therapy Site: Respirator y
Durat ion of therapy: 7 days vancomycin No 15mg/kg 1,500 mg Univers 1500 mg in 08-16 (rounded ity of NS 500 mL 19:00: 21:27 from [place] IV 00 :56 1,837.5 mg Medical Piggyback = 15 mg/kg Bran ch RTU 1,500 ?122.5 mg kg), IV Piggyback, Q12H ABX, First dose on Sun08/16/21 at 1400, Until Discontinu ed, Administer over 90 Minutes
Reason for Anti-Infec tive: Empiric Therapy for Suspected Infection< br>Empiric Therapy Site: Respirator y
Durat ion of therapy: 7 days lidocaine Yes 2{patch 2 Patch, U nivers (LIDODERM) 08-16 } Topical, ity o f 5 % (700 14:00: Administer Kwabena as mg/patch) 00 over 12 Medical patch 2 Hours, Branch Patch DAILY, First dose on Sun08/16/21 at 0900, Until Discontinu ed, Routine ipratropium Yes 3mL 3 mL, Unive rs -albuteroL 5-30 Inhalation ity of (DUONEB) 21:00: , QID, [place] 0.5 mg-3 00 First dose Medic al mg(2.5 mg on Sun [employer])/3 mL 08/15/21 at nebulizer 1600, solution 3 Until mL Discontinu ed, Routine methocarbam Yes 500mg 500 mg, Un hunter oL 5-30 Oral, QID, ity of (ROBAXIN) 17:00: First dose [place] tablet 500 00 on Sun Medical mg 08/15/21 at Branch 1200, Until Discontinu ed, Routine morpHINE (2 Yes 2mg 2 mg, Slow Univers mg/mL) 5-30 IV Push, ity of injection 2 16:54: Q4HPRN, [place] as mg 50 Starting Medical on Sun08/15/21 at 1154, Until Discontinu ed, Routine, Pain (scale 7-10) HYDROcodone 2022-0 Yes 1{tbl} 1 tablet, Univers -acetaminop 08-15 Oral, ity of hen (NORCO) 16:54: Q4HPRN, [place] as 10-325 mg 30 Starting Medica l tablet 1 on [facility] tablet 08/15/21 at 1154, Until Discontinu ed, Routine, Pain (scale 4-6) lisinopriL 0 Yes 5mg 5 mg, Univer s (PRINIVIL,Z 08-14 Oral, ity of ESTRIL) 14:00: DAILY, [place] tablet 5 mg 00 First dose Me dical on [facility] 08/14/21 at 0900, Until Discontinu ed, Routine tamsulosin 0 Yes .4mg 0.4 mg, Univ ers (FLOMAX) 08-14 Oral, ity of capsule 0.4 14:00: DAILY, [place] mg 00 First dose Medical on [facility] 08/14/21 at 0900, Until Discontinu ed, Routine SERTraline Yes 100mg 100 mg, Uni vers (ZOLOFT) 08-14 Oral, QAM, ity o f tablet 100 14:00: First dose [place] mg 00 on [facility] 08/14/21 at Branch 0900, Until Discontinu ed, Routine cefTRIAXone No 1000mg 1,000 mg, Univers (ROCEPHIN) 08-14 05-31 IV ity of 1,000 mg in 13:30: 18:13 Piggyback, [place] NaCl 0.9% 00 :31 Q24H ABX, Medic al (NS) 50 mL First dose [facility] MINI-BAG on [place] 08/14/21 at 0830, Until Discontinu ed, Administer over 30 Minutes, 50 mL
Reas on for Anti-Infec tive: Empiric Therapy for Suspected Infection< br>Empiric Therapy Site: Respirator y
Durat ion of therapy: 7 days QUEtiapine 0 Yes 100mg 100 mg, Uni vers (SEROQUEL) 08-14 Oral, QHS, ity of tablet 100 02:00: First dose [place] mg 00 on [facility] 08/13/21 at Branch 2100, Until Discontinu ed, Routine atorvastati Yes 80mg 80 mg, Univ ers n (LIPITOR) 08-14 Oral, QHS, it y of tablet 80 02:00: First dose [place] mg 00 on [facility] Medical 08/13/21 at Branch 2100, Until Discontinu ed, Routine levETIRAcet Yes 500mg 500 mg, Un hunter am (KEPPRA) 08-14 Oral, BID, it y of tablet 500 01:00: First dose [place] mg 00 on [facility] 08/13/21 at Branch 2000, Until Discontinu ed, Routine gabapentin Yes 400mg 400 mg, Uni vers (NEURONTIN) 08-14 Oral, TID, it y of capsule 400 01:00: First dose [place] mg 00 on [facility] Medical 08/13/21 at Branch 2000, Until Discontinu ed, Routine Sliding Yes Subcutaneo Univ ers Scale 08-13 us, TID ity of Insulin - 22:00: MEALS+HS, [place] Lispro 00 First dose Medical (HumaLOG) + on [facility] Branch [facility] 08/13/21 at Testing 1700, Until Discontinu ed, Routine enoxaparin Yes 40mg 40 mg, Unive rs (LOVENOX) 08-13 Subcutaneo ity of injection 22:00: us, DAILY [place] as 40 mg 00 AT 1700, Medical First dose Branch on [facility] 08/13/21 at 1700, Until Discontinu ed, Routine guaiFENesin Yes 200mg 200 mg, Un hunter 100 mg/5 mL 08-13 Oral, ity of solution 17:07: Q4HPRN, [place] 200 mg 14 Starting Medical on [facility] Branch 08/13/21 at 1207, Until Discontinu ed, Routine, Cough azithromyci 2021- No 500mg 500 mg, IV Univers n 08-13 05-31 Piggyback, ity of (ZITHROMAX) 13:30: 17:45 Q24H ABX, [place] 500 mg in 00 :27 First dose Medi cheryl NaCl 0.9% (after Branch (NS) 250 mL last VIAL-MATE modificati IV on) on [facility] piggyback 08/13/21 at 0830, Until Discontinu ed, Administer over 60 Minutes, 250 mL
Reas on for Anti-Infec tive: Documented Infection< br>Documen yanely Infection Site: Respirator y
Durat ion of Therapy: 7 days cefTRIAXone No 1000mg 1,000 mg, Univers (ROCEPHIN) 08-13 IV ity of 1,000 mg in 13:15: 12:48 [place], [place] NaCl 0.9% 00 :00 ONCE, 1 Medical (NS) 50 mL dose, On Branc h MINI-BAG 08/13/21 at 0815, Administer over 30 Minutes, 50 mL
Reas on for Anti-Infec tive: Documented Infection< br>Documen yanely Infection Site: Respirator y
Du ration of Therapy: 7 days acetaminoph 2021- No 650mg 650 mg, U nivers en 08-13 Oral, ity of (TYLENOL) 13:15: 15:51 ONCE, 1 [place] tablet 650 00 :00 dose, On Medic al mg Sat Branch 08/13/21 at 0815, LEW codeine-gua 2021- No 10mL 10 mL, Uni vers ifenesin 08-13 Oral, ity of (ROBITUSSIN 12:45: 11:38 ONCE, 1 [place] AC) 10-100 00 :00 dose, On Medic al mg/5 mL Sat Branch oral 08/13/21 at solution 10 0745, LEW mL ipratropium 0 Yes 3mL 3 mL, Unive rs -albuteroL 08-13 Inhalation ity of (DUONEB) 12:15: , QIDPRN, [place] 0.5 mg-3 42 Starting Medical mg(2.5 mg on Sat Branch base)/3 mL 08/13/21 at nebulizer 0715, solution 3 Until mL Discontinu ed, Routine, Wheezing, Shortness of Breath, Bronchospa sm, Chest tightness ondansetron 2021-0 Yes 4mg 4 mg, Slow Univers (ZOFRAN 08-13 IV Push, ity of (PF)) 12:15: Q6HPRN, [place] injection 4 27 Starting Medi cheryl mg on Sat Branch 08/13/21 at 0715, Until Discontinu ed, Routine, Nausea and Vomiting (N/V) traMADoL 2021- No 50mg 50 mg, Univer s (ULTRAM) 08-1330 Oral, ity of tablet 50 12:15: 12:14 Q8HPRN, [place] mg 21 :21 Starting Medical on Sat Branch 08/13/21 at 0715, Until 08/15/21 at 0714, Routine, Pain (scale 4-6) acetaminoph Yes 650mg 650 mg, Un hunter en 08-13 Oral, ity of (TYLENOL) 12:15: Q6HPRN, [place] tablet 650 19 Starting Medic al mg on Sat Branch 08/13/21 at 0715, Until Discontinu ed, Routine, Pain (scale 1-3) lidocaine 2021- No [id number] 1{patch QD Apply 1 [place] (Lidoderm) 08-01 } patch Health 5 % patch 00:00: [...] Branch Sun07/26/21 at 1230, STAT HYDROcodone 2021- No 4647 .5{tbl} Take 0.5-1 Univers -acetaminop 5-10 05-18 tablets by i cedric (NORCO) 00:00: 04:59 [place] 10-325 [...] No 7.5mg 7.5 mg, U nivers -acetaminop 3-07 06-22 Oral, ity of hen (HYCET) 18:00: 16:50 ONCE, 1 [place] 7.5-325 00 :00 dose, On Medical mg/15 mL Tue Branch PEDI 06/07/21 at solution 1300, LEW 7.5 mg ibuprofen 2021-0 Yes [id number] 800mg Take 1 Univers 800 mg 3-22 tablet by ity of tablet 00:00: mouth [place] 00 every 8 Medical (eight) Branch hours as needed for Pain (scale 4-6). ondansetron 2021-0 Yes [id number] 4mg Take 1 Univers 4 mg 3-22 tablet by ity of disintegrat 00:00: mouth [place] ing tablet 00 every 4 Medica l (four) Branch hours as needed for Nausea and Vomiting (N/V). ibuprofen 2021-0 Yes [id number] 800mg Take 1 Univers 800 mg 3-22 tablet by ity of tablet 00:00: mouth [place] 00 every 8 Medical (eight) Branch hours as needed for Pain (scale 4-6). ondansetron 2021-0 Yes [id number] 4mg Take 1 Univers 4 mg 3-22 tablet by ity of disintegrat 00:00: mouth [place] ing tablet 00 every 4 Medica l (four) Branch hours as needed for Nausea and Vomiting (N/V). ibuprofen 2-0 Yes [id number] 800mg Take 1 Univers 800 mg 3-22 tablet by ity of tablet 00:00: mouth [place] 00 every 8 Medical (eight) Branch hours as needed for Pain (scale 4-6). ondansetron 2022-0 Yes [id number] 4mg Take 1 Univers 4 mg 3-22 tablet by ity of disintegrat 00:00: mouth [place] ing tablet 00 every 4 Medica l (four) Branch hours as needed for Nausea and Vomiting (N/V). ibuprofen 2022-0 Yes [id number] 800mg Take 1 Univers 800 mg 3-22 tablet by ity of tablet 00:00: mouth [place] 00 every 8 Medical (eight) Branch hours as needed for Pain (scale 4-6). ondansetron 2022-0 Yes [id number] 4mg Take 1 Univers 4 mg 3-22 tablet by ity of disintegrat 00:00: mouth [place] ing tablet 00 every 4 Medica l (four) Branch hours as needed for Nausea and Vomiting (N/V). ibuprofen 2022-0 Yes [id number] 800mg Take 1 Univers 800 mg 3-22 tablet by ity of tablet 00:00: mouth [place] 00 every 8 Medical (eight) Branch hours as needed for Pain (scale 4-6). ondansetron 2022-0 Yes [id number] 4mg Take 1 Univers 4 mg 3-22 tablet by ity of disintegrat 00:00: mouth [place] ing tablet 00 every 4 Medica l (four) Branch hours as needed for Nausea and Vomiting (N/V). ibuprofen 2022-0 Yes [id number] 800mg Take 1 Univers 800 mg 3-22 tablet by ity of tablet 00:00: mouth [place] 00 every 8 Medical (eight) Branch hours as needed for Pain (scale 4-6). ondansetron 2-0 Yes [id number] 4mg Take 1 Univers 4 mg 3-22 tablet by ity of disintegrat 00:00: mouth [place] ing tablet 00 every 4 Medica l (four) Branch hours as needed for Nausea and Vomiting (N/V). ibuprofen 2-0 Yes [id number] 800mg Take 1 Univers 800 mg 3-22 tablet by ity of tablet 00:00: mouth [place] 00 every 8 Medical (eight) Branch hours as needed for Pain (scale 4-6). ondansetron 2-0 Yes [id number] 4mg Take 1 Univers 4 mg 3-22 tablet by ity of disintegrat 00:00: mouth [place] ing tablet 00 every 4 Medica l (four) Branch hours as needed for Nausea and Vomiting (N/V). ibuprofen 2022-0 Yes [id number] 800mg Take 1 Univers 800 mg 3-22 tablet by ity of tablet 00:00: mouth [place] 00 every 8 Medical (eight) Branch hours as needed for Pain (scale 4-6). ondansetron 2022-0 Yes [id number] 4mg Take 1 Univers 4 mg 3-22 tablet by ity of disintegrat 00:00: mouth [place] ing tablet 00 every 4 Medica l (four) Branch hours as needed for Nausea and Vomiting (N/V). HYDROcodone 2-0 2022- No 4647 1{tbl} Take 1 U nivers -acetaminop 3-22 03-30 tablet by it y of hen ([employer]) 00:00: 04:59 mouth [place] 7.5-325 mg 00 :00 every 8 Medica l per tablet (eight) Branch hours as needed for Pain for up to 7 days. Indication s: acute pain HYDROcodone 2021- No 4647 1{tbl} Take 1 U nivers -acetaminop 3-22 -30 tablet by it y of hen ([employer]) 00:00: 04:59 mouth [place] 7.5-325 mg 00 :00 every 8 Medica l per tablet (eight) Branch hours as needed for Pain for up to 7 days. Indication s: acute pain baclofen 2 2020-03 No 80,000 Memor ia mg/mL 2-29 microgram, l intrathecal 21:00: Route: Herm shelton solution 00 INTRATHECA RONY GoldenALL, Dosing Weight 118.182, kg, 40ml = 80,000mcg, Start date: 03/16/21 15:00:00 CAN WASHER, Duration: 30 day, Stop date: 04/15/21 14:59:00 CAN WASHER Baclofen 1 No 40,000 Memor ia MG/ML 8-31 microgram, l Injectable 18:00: Route: [place]ita nn Solution 00 INTRATHECA L ONCALL, Dosing Weight 118.182, kg, 40ml = 40,000mcg, Start date: 11/16/20 13:00:00 CDT, Duration: 30 day, Stop date: 12/16/20 12:59:00 CDT sertraline Yes 50 mg = 1 Me moria 50 mg oral 8-10 tab, PO, l tablet 15:50: BID, # 30 Mauricio n 00 tab, 0 Refill(s) montelukast Yes Daily, 0 Me moria 6-14 Refill(s) l 19:25: Demar 00 3 ML Yes 1 mg, Memoria semaglutide 6-14 SUB-Q, l 1.34 MG/ML 19:25: qWeek, 0 Her adams Pen 00 Refill(s) Injector [Ozempic] Botulinum 2019-03 No 600 unit, Mem oria Toxin Type 2-29 Route: IM, l A 22:00: ONCTIFFANIE Mobile 00 Dosing Weight 125, kg, Start date: 03/16/20 16:00:00 CAN WASHER, Duration: 30 day, Stop date: 04/15/20 15:59:00 CAN WASHER Ozempic (1 Ozempic (1 2019-03 No Ozempic (1 MG/DOSE) 2 MG/DOSE) 2 2-23 MG/DOSE) 2 MG/1.5ML MG/1.5ML 00:00: MG/1.5ML 00 Ozempic (1 Ozempic (2019-03- No Ozempic (1 MG/DOSE) 2 MG/DOSE) 2 2-23 09-19 MG/DOSE) 2 MG/1.5ML MG/1.5ML 00:00: 00:00 MG/1.5ML 00 :00 Ozempic (1 Ozempic (2019-03- No Ozempic (1 MG/DOSE) 2 MG/DOSE) 2 2- 09-19 MG/DOSE) 2 MG/1.5ML MG/1.5ML 00:00: 00:00 MG/1.5ML 00 :00 Ozempic (1 Ozempic (1 2019-03- No Ozempic (1 MG/DOSE) 2 MG/DOSE) 2 2- 09-19 MG/DOSE) 2 MG/1.5ML MG/1.5ML 00:00: 00:00 MG/1.5ML 00 :00 Ozempic (1 Ozempic (2019-03- No Ozempic (1 MG/DOSE) 2 MG/DOSE) 2 2- 09-19 MG/DOSE) 2 MG/1.5ML MG/1.5ML 00:00: 00:00 MG/1.5ML 00 :00 Ozempic (1 Ozempic (2019-03- No Ozempic (1 MG/DOSE) 2 MG/DOSE) 2 2- 09-19 MG/DOSE) 2 MG/1.5ML MG/1.5ML 00:00: 00:00 MG/1.5ML 00 :00 Ozempic (1 Ozempic (2019-03- No Ozempic (1 MG/DOSE) 2 MG/DOSE) 2 2- 09-19 MG/DOSE) 2 MG/1.5ML MG/1.5ML 00:00: 00:00 MG/1.5ML 00 :00 Ozempic (1 Ozempic (1 2019-03- No Ozempic (1 MG/DOSE) 2 MG/DOSE) 2 05-11 09-19 MG/DOSE) 2 MG/1.5ML MG/1.5ML 00:00: 00:00 MG/1.5ML 00 :00 Ozempic (1 Ozempic (1 2019-03- No Ozempic (1 MG/DOSE) 2 MG/DOSE) 2 2- 09-19 MG/DOSE) 2 MG/1.5ML MG/1.5ML 00:00: 00:00 MG/1.5ML 00 :00 Ozempic (1 Ozempic (1 2019-03- No Ozempic (1 MG/DOSE) 2 MG/DOSE) 2 05-11 09-19 MG/DOSE) 2 MG/1.5ML MG/1.5ML 00:00: 00:00 MG/1.5ML 00 :00 Ozempic (1 Ozempic (1 2019-03- No Ozempic (1 MG/DOSE) 2 MG/DOSE) 2 05-11-19 MG/DOSE) 2 MG/1.5ML MG/1.5ML 00:00: 00:00 MG/1.5ML 00 :00 Ozempic (1 Ozempic (1 2019-03- No Ozempic (1 MG/DOSE) 2 MG/DOSE) 2 05-11-19 MG/DOSE) 2 MG/1.5ML MG/1.5ML 00:00: 00:00 MG/1.5ML 00 :00 Ozempic (1 Ozempic (1 2019-03- No Ozempic (1 MG/DOSE) 2 MG/DOSE) 2 05-11-19 MG/DOSE) 2 MG/1.5ML MG/1.5ML 00:00: 00:00 MG/1.5ML 00 :00 GlipiZIDE GlipiZIDE 2019- No 1{table QD GlipiZIDE ER 5 MG ER 5 MG 2-22 t_with_ ER 5 MG 00:00: food} 00 GlipiZIDE GlipiZIDE 2019-03 No 1{table QD GlipiZIDE ER 5 MG ER 5 MG 2-22 t_with_ ER 5 MG 00:00: food} GlipiZIDE GlipiZIDE 2019-03 No 1{table QD GlipiZIDE ER 5 MG ER 5 MG 2-22 t_with_ ER 5 MG 00:00: food} GlipiZIDE GlipiZIDE 2019-03 No 1{table QD GlipiZIDE ER 5 MG ER 5 MG 2-22 t_with_ ER 5 MG 00:00: food} GlipiZIDE GlipiZIDE 2019-03 No 1{table QD GlipiZIDE ER 5 MG ER 5 MG 2-22 t_with_ ER 5 MG 00:00: food} GlipiZIDE GlipiZIDE 2019-03 No 1{table QD GlipiZIDE ER 5 MG ER 5 MG 2-22 t_with_ ER 5 MG 00:00: food} GlipiZIDE GlipiZIDE 2019-03 No 1{table QD GlipiZIDE ER 5 MG ER 5 MG 2-22 t_with_ ER 5 MG 00:00: food} GlipiZIDE GlipiZIDE 2019-03 No 1{table QD GlipiZIDE ER 5 MG ER 5 MG 2-22 t_with_ ER 5 MG 00:00: food} GlipiZIDE GlipiZIDE 2019-03 No 1{table QD GlipiZIDE ER 5 MG ER 5 MG 2-22 t_with_ ER 5 MG 00:00: food} GlipiZIDE GlipiZIDE 2019-03 No 1{table QD GlipiZIDE ER 5 MG ER 5 MG 2-22 t_with_ ER 5 MG 00:00: food} GlipiZIDE GlipiZIDE 2019-03 No 1{table QD GlipiZIDE ER 5 MG ER 5 MG 2-22 t_with_ ER 5 MG 00:00: food} GlipiZIDE GlipiZIDE 2019-03 No 1{table QD GlipiZIDE ER 5 MG ER 5 MG 2-22 t_with_ ER 5 MG 00:00: food} GlipiZIDE GlipiZIDE 2019-03 No 1{table QD GlipiZIDE ER 5 MG ER 5 MG 2-22 t_with_ ER 5 MG 00:00: food} 00 Ketoconazol Ketoconazol 2019-2020- No 5{ml} BID Ketoconazo e 2 % e 2 % 2 04-13 le 2 % 00:00: 00:00 00 :00 Ketoconazol Ketoconazol 2019-1- No 5{ml} BID Ketoconazo e 2 % e 2 % 2 04-13 le 2 % 00:00: 00:00 00 :00 Ketoconazol Ketoconazol 2019-2020- No 5{ml} BID Ketoconazo e 2 % e 2 % 2 04-13 le 2 % 00:00: 00:00 00 :00 Ketoconazol Ketoconazol 2019-2020- No 5{ml} BID Ketoconazo e 2 % e 2 % 05-10 04-13 le 2 % 00:00: 00:00 00 :00 Ketoconazol Ketoconazol 2019-2020- No 5{ml} BID Ketoconazo e 2 % e 2 % 05-10 04-13 le 2 % 00:00: 00:00 00 :00 Ketoconazol Ketoconazol 2019-2020- No 5{ml} BID Ketoconazo e 2 % e 2 % 2 04-13 le 2 % 00:00: 00:00 00 :00 Ketoconazol Ketoconazol 2019-2020- No 5{ml} BID Ketoconazo e 2 % e 2 % 2 04-13 le 2 % 00:00: 00:00 00 :00 Ketoconazol Ketoconazol 2019-2020- No 5{ml} BID Ketoconazo e 2 % e 2 % 2 04-13 le 2 % 00:00: 00:00 00 :00 Ketoconazol Ketoconazol 2019-2020- No 5{ml} BID Ketoconazo e 2 % e 2 % 2 04-13 le 2 % 00:00: 00:00 00 :00 Ketoconazol Ketoconazol 2019-2020- No 5{ml} BID Ketoconazo e 2 % e 2 % 2 04-13 le 2 % 00:00: 00:00 00 :00 Ketoconazol Ketoconazol 2019-2020- No 5{ml} BID Ketoconazo e 2 % e 2 % 222 04- le 2 % 00:00: 00:00 00 :00 Ketoconazol Ketoconazol 2019-03- No 5{ml} BID Ketoconazo e 2 % e 2 % 05-10 le 2 % 00:00: 00:00 00 :00 Ketoconazol Ketoconazol 2019-03- No 5{ml} BID Ketoconazo e 2 % e 2 % 05-10 le 2 % 00:00: 00:00 00 :00 Botulinum 2020-0 No 600 unit, Mem oria Toxin Type 9-30 Route: IM, l A 18:00: ONCALL, Demar 00 Dosing Weight 125, kg, Start date: 12/17/19 13:00:00 CDT, Duration: 30 day, Stop date: 01/16/20 12:59:00 CDT Botulinum 2020-0 No 600 unit, Mem oria Toxin Type 6-30 Route: IM, l A 20:00: ONCALL, Mobile Dosing Weight 125, kg, Start date: 09/16/19 15:00:00 CDT, Duration: 30 day, Stop date: 10/16/19 14:59:00 CDT baclofen 2 2019-0 Yes 475.5 Memori a mg/mL 6-09 mcg/day, l intrathecal 21:24: INTRATHECA [place] solution 00 L, Continuous , simple, 0 Refill(s) Vitamin D2 2019-0 Yes 50,000 Memor ia 50,000 intl 6-09 IntlUnit = l units oral 14:44: 1 cap, PO, H ermann capsule 00 Q30D, # 24 cap, 0 Refill(s) Metformin 2020-0 Yes 1,000 mg, Mem oria 6-09 PO, Daily, l 14:41: 0 Mobile 00 Refill(s) gabapentin 2020-0 Yes 300 mg = 1 M emoria 300 MG Oral 6-09 cap, PO, l Capsule 14:41: TID, # 90 Chiquita nn 00 cap, 1 Refill(s) neomycin-po 2019-0 2020- No [id number] 3[drp] Place 3 Univers lymyxin-hyd 4-03 04-09 Drops in ity of rocortisone 00:00: 04:59 left ear 4 [place] otic 00 :00 (four) Medical solution times Branch daily for 5 days. levoFLOXaci 2020-0 2020- No [id number] 750mg Take 1 Univers n 750 mg 3-15 03-21 tablet by ity o f tablet 00:00: 04:59 mouth [place] 00 :00 every 24 Medical ([facility] ur) hours for 5 days. levoFLOXaci 2019-0 2020- No [id number] 750mg Take 1 Univers n 750 mg 3-15 03-21 tablet by ity o f tablet 00:00: 04:59 mouth [place] 00 :00 every 24 Medical ([facility] ur) hours for 5 days. levoFLOXaci 2019-0 2020- No [id number] 750mg Take 1 Univers n 750 mg 3-15 03-21 tablet by ity o f tablet 00:00: 04:59 mouth [place] 00 :00 every 24 Medical ([facility] ur) hours for 5 days. levoFLOXaci 2019-0 2020- No [id number] 750mg Take 1 Univers n 750 mg 3-15 03-21 tablet by ity o f tablet 00:00: 04:59 mouth [place] 00 :00 every 24 Medical ([facility] ur) hours for 5 days. pioglitazon 2020-0 Yes [id number] 30mg Take 1 Univers e 30 mg 3-13 tablet by ity of tablet 00:00: mouth [place] 00 daily. Medical Branch pioglitazon 2020-0 Yes [id number] 30mg Take 1 Univers e 30 mg 3-13 tablet by ity of tablet 00:00: mouth [place] 00 daily. Medical Branch pioglitazon 2020-0 Yes [id number] 30mg Take 1 Univers e 30 mg 3-13 tablet by ity of tablet 00:00: mouth [place] 00 daily. Medical Branch pioglitazon 2020-0 Yes [id number] 30mg Take 1 Univers e 30 mg 3-13 tablet by ity of tablet 00:00: mouth [place] 00 daily. Medical Branch pioglitazon 2020-0 Yes [id number] 30mg Take 1 Univers e 30 mg 3-13 tablet by ity of tablet 00:00: mouth [place] 00 daily. Medical Branch pioglitazon 2020-0 Yes [id number] 30mg Take 1 Univers e 30 mg 3-13 tablet by ity of tablet 00:00: mouth [place] 00 daily. Medical Branch pioglitazon 2020-0 Yes [id number] 30mg Take 1 Univers e 30 mg 3-13 tablet by ity of tablet 00:00: mouth [place] 00 daily. Medical Branch pioglitazon 2020-0 Yes [id number] 30mg Take 1 Univers e 30 mg 3-13 tablet by ity of tablet 00:00: mouth [place] 00 daily. Medical Branch pioglitazon 2020-0 Yes [id number] 30mg Take 1 Univers e 30 mg 3-13 tablet by ity of tablet 00:00: mouth [place] 00 daily. Medical Branch pioglitazon 2020-0 Yes [id number] 30mg Take 1 Univers e 30 mg 3-13 tablet by ity of tablet 00:00: mouth [place] 00 daily. [facility] Branch pioglitazon 2019-0 Yes [id number] 30mg Take 1 Univers e 30 mg 3-13 tablet by ity of tablet 00:00: mouth [place] 00 daily. Medical Branch pioglitazon 2019-0 Yes [id number] 30mg Take 1 Univers e 30 mg 3-13 tablet by ity of tablet 00:00: mouth [place] 00 daily. Medical Branch pioglitazon 2019-0 Yes [id number] 30mg Take 1 Univers e 30 mg 3-13 tablet by ity of tablet 00:00: mouth [place] 00 daily. Medical Branch pioglitazon 2019-0 Yes [id number] 30mg Take 1 Univers e 30 mg 3-13 tablet by ity of tablet 00:00: mouth [place] 00 daily. Medical Branch pioglitazon 2020-0 Yes [id number] 30mg Take 1 Univers e 30 mg 3-13 tablet by ity of tablet 00:00: mouth [place] 00 daily. Medical Branch pioglitazon 2020-0 Yes [id number] 30mg Take 1 Univers e 30 mg 3-13 tablet by ity of tablet 00:00: mouth [place] 00 daily. [facility] Branch pioglitazon 2020-0 Yes [id number] 30mg Take 1 Univers e 30 mg 3-13 tablet by ity of tablet 00:00: mouth [place] 00 daily. [facility] Branch pioglitazon 2020-0 Yes [id number] 30mg Take 1 Univers e 30 mg 3-13 tablet by ity of tablet 00:00: mouth [place] 00 daily. [facility] Branch pioglitazon 2020-0 Yes [id number] 30mg Take 1 Univers e 30 mg 3-13 tablet by ity of tablet 00:00: mouth [place] 00 daily. Medical Branch pioglitazon 2020-0 Yes [id number] 30mg Take 1 Univers e 30 mg 3-13 tablet by ity of tablet 00:00: mouth [place] 00 daily. Medical Branch pioglitazon 2020-0 Yes [id number] 30mg Take 1 Univers e 30 mg 3-13 tablet by ity of tablet 00:00: mouth [place] 00 daily. Medical Branch pioglitazon 2019-0 Yes [id number] 30mg Take 1 Univers e 30 mg 3-13 tablet by ity of tablet 00:00: mouth [place] 00 daily. Medical Branch pioglitazon 2019-0 Yes [id number] 30mg Take 1 Univers e 30 mg 3-13 tablet by ity of tablet 00:00: mouth [place] 00 daily. Medical Branch pioglitazon 2019-0 Yes [id number] 30mg Take 1 Univers e 30 mg 3-13 tablet by ity of tablet 00:00: mouth [place] 00 daily. Medical Branch pioglitazon 2019-0 Yes [id number] 30mg Take 1 Univers e 30 mg 3-13 tablet by ity of tablet 00:00: mouth [place] 00 daily. Medical Branch pioglitazon 2019-0 Yes [id number] 30mg Take 1 Univers e 30 mg 3-13 tablet by ity of tablet 00:00: mouth [place] 00 daily. Medical Branch pioglitazon 2019-0 Yes [id number] 30mg Take 1 Univers e 30 mg 3-13 tablet by ity of tablet 00:00: mouth [place] 00 daily. Medical Branch pioglitazon 2019-0 Yes [id number] 30mg Take 1 Univers e 30 mg 3-13 tablet by ity of tablet 00:00: mouth [place] 00 daily. Medical Branch pioglitazon 2020-0 Yes [id number] 30mg Take 1 Univers e 30 mg 3-13 tablet by ity of tablet 00:00: mouth [place] 00 daily. [facility] Branch lisinopril 2019-0 Yes [id number] 5mg Take 1 U nivers 5 mg tablet 3-11 tablet by ity of 00:00: mouth [place] 00 daily. [facility] Branch lisinopril 2019-0 Yes [id number] 5mg Take 1 U nivers 5 mg tablet 3-11 tablet by ity of 00:00: mouth [place] 00 daily. Medical Branch lisinopril 2020-0 Yes [id number] 5mg Take 1 U nivers 5 mg tablet 3-11 tablet by ity of 00:00: mouth [place] 00 daily. [facility] lisinopril 2020-0 Yes [id number] 5mg Take 1 [facility] 5 mg tablet 3-11 tablet by [facility] of 00:00: mouth [place] 00 daily. [facility] lisinopril 2020-0 Yes [id number] 5mg Take 1 [facility] 5 mg tablet 3-11 tablet by [facility] 00:00: mouth [place] 00 daily. [facility] lisinopril 2020-0 Yes [id number] 5mg Take 1 [facility] 5 mg tablet 3-11 tablet by [facility] of 00:00: mouth [place] 00 daily. [facility] lisinopril 2020-0 Yes [id number] 5mg Take 1 [facility] 5 mg tablet 3-11 tablet by [facility] of 00:00: mouth [place] 00 daily. [facility] lisinopril 2020-0 Yes [id number] 5mg Take 1 [facility] 5 mg tablet 3-11 tablet by [facility] of 00:00: mouth [place] 00 daily. [facility] lisinopril 2020-0 Yes [id number] 5mg Take 1 [facility] 5 mg tablet 3-11 tablet by [facility] 00:00: mouth [place] 00 daily. [facility] lisinopril 2020-0 Yes [id number] 5mg Take 1 [facility] 5 mg tablet 3-11 tablet by [facility] of 00:00: mouth [place] 00 daily. [facility] lisinopril 2020-0 Yes [id number] 5mg Take 1 [facility] 5 mg tablet 3-11 tablet by [facility] 00:00: mouth [place] 00 daily. [facility] lisinopril 2020-0 Yes [id number] 5mg Take 1 [facility] 5 mg tablet 3-11 tablet by [facility] 00:00: mouth [place] 00 daily. [facility] lisinopril 2020-0 Yes [id number] 5mg Take 1 [facility] 5 mg tablet 3-11 tablet by [facility] 00:00: mouth [place] 00 daily. [facility] lisinopril 2020-0 Yes [id number] 5mg Take 1 [facility] 5 mg tablet 3-11 tablet by [facility] 00:00: mouth [place] 00 daily. [facility] lisinopril 2020-0 Yes [id number] 5mg Take 1 [facility] 5 mg tablet 3-11 tablet by [facility] 00:00: mouth [place] 00 daily. [facility] lisinopril 2020-0 Yes [id number] 5mg Take 1 [facility] nivers 5 mg tablet 3-11 tablet by [facility] of 00:00: mouth [place] 00 daily. [facility] lisinopril 2020-0 Yes [id number] 5mg Take 1 [facility] nivers 5 mg tablet 3-11 tablet by ity of 00:00: mouth [place] 00 daily. [facility] lisinopril 2020-0 Yes [id number] 5mg Take 1 [facility] nivers 5 mg tablet 3-11 tablet by ity of 00:00: mouth [place] 00 daily. [facility] lisinopril 2020-0 Yes [id number] 5mg Take 1 [facility] nivers 5 mg tablet 3-11 tablet by ity of 00:00: mouth [place] 00 daily. [facility] lisinopril 2020-0 Yes [id number] 5mg Take 1 [facility] nivers 5 mg tablet 3-11 tablet by ity of 00:00: mouth [place] 00 daily. [facility] lisinopril 2020-0 Yes [id number] 5mg Take 1 [facility] nivers 5 mg tablet 3-11 tablet by ity of 00:00: mouth [place] 00 daily. [facility] lisinopril 2020-0 Yes [id number] 5mg Take 1 [facility] nivers 5 mg tablet 3-11 tablet by ity of 00:00: mouth [place] 00 daily. [facility] lisinopril 2020-0 Yes [id number] 5mg Take 1 [facility] nivers 5 mg tablet 3-11 tablet by ity of 00:00: mouth [place] 00 daily. [facility] lisinopril 2020-0 Yes [id number] 5mg Take 1 [facility] nivers 5 mg tablet 3-11 tablet by ity of 00:00: mouth [place] 00 daily. [facility] lisinopril 2020-0 Yes [id number] 5mg Take 1 [facility] nivers 5 mg tablet 3-11 tablet by ity of 00:00: mouth [place] 00 daily. [facility] lisinopril 2020-0 Yes [id number] 5mg Take 1 [facility] nivers 5 mg tablet 3-11 tablet by ity of 00:00: mouth [place] 00 daily. [facility] lisinopril 2020-0 Yes [id number] 5mg Take 1 [facility] nivers 5 mg tablet 3-11 tablet by ity of 00:00: mouth [place] 00 daily. [facility] lisinopril 2020-0 Yes [id number] 5mg Take 1 [facility] nivers 5 mg tablet 3-11 tablet by ity of 00:00: mouth [place] 00 daily. [facility] lisinopril 2020-0 Yes [id number] 5mg Take 1 [facility] nivers 5 mg tablet 3-11 tablet by [facility]y of 00:00: mouth [place] 00 daily. [facility] lisinopril 2020-0 Yes [id number] 5mg Take 1 [facility] nivers 5 mg tablet 3-11 tablet by ity of 00:00: mouth [place] 00 daily. [facility] lisinopril 2020-0 Yes [id number] 5mg Take 1 [facility] nivers 5 mg tablet 3-11 tablet by [facility]y of 00:00: mouth [place] 00 daily. [facility] lisinopril 2020-0 Yes [id number] 5mg Take 1 [facility] nivers 5 mg tablet 3-11 tablet by [facility]y of 00:00: mouth [place] 00 daily. [facility] lisinopril 2020-0 Yes [id number] 5mg Take 1 [facility] nivers 5 mg tablet 3-11 tablet by ity of 00:00: mouth [place] 00 daily. [facility] lisinopril 2020-0 Yes [id number] 5mg Take 1 [facility] nivers 5 mg tablet 3-11 tablet by [facility]y of 00:00: mouth [place] 00 daily. [facility] lisinopril 2020-0 Yes [id number] 5mg Take 1 [facility] nivers 5 mg tablet 3-11 tablet by ity of 00:00: mouth [place] 00 daily. [facility] lisinopril 2020-0 Yes [id number] 5mg Take 1 [facility] nivers 5 mg tablet 3-11 tablet by ity of 00:00: mouth [place] 00 daily. [facility] metFORMIN 2020-0 2020- No 500mg Take 500 [facility] [place] 500 mg 3-05 03-05 mg by ity of tablet 21:37: 00:00 mouth 2 [place] 52 :00 (two) Medical times Branch daily with meals. metFORMIN 2020-0 2020- No 500mg Take 500 [facility] [place] 500 mg 3-05 03-05 mg by ity of tablet 21:37: 00:00 mouth 2 [place] 52 :00 (two) Medical times Branch daily [...] by mouth ity of tablet 20:28: every [place] 24 morning. [facility] Branch hydrocortis 2020-0 Yes 10mg Take 10 mg [facility] one 10 mg 3-05 by mouth ity of tablet 20:28: every [place] 24 morning. [facility] Branch hydrocortis 2020-0 Yes 10mg Take 10 mg [facility] one 10 mg 3-05 by mouth ity of tablet 14:28: every [place] 24 morning. [facility] Branch hydrocortis 2020-0 Yes 10mg Take 10 mg [facility] one 10 mg 3-05 by mouth ity of tablet 14:28: every [place] 24 morning. [facility] Branch hydrocortis 2020-0 Yes 10mg Take 10 mg [facility] one 10 mg 3-05 by mouth ity of tablet 14:28: every [place] 24 morning. [facility] Branch hydrocortis 2020-0 Yes 10mg Take 10 mg [facility] one 10 mg 3-05 by mouth ity of tablet 14:28: every [place] 24 morning. [facility] Branch metFORMIN 2020-0 Yes [id number] 1000mg Take 1 [facility] 1,000 mg 3-05 tablet by ity of tablet 00:00: mouth 2 (two) Medical times Branch daily with meals. metFORMIN 2020-0 Yes [id number] 1000mg Take 1 [facility] 1,000 mg 3-05 tablet by [facility]y of tablet 00:00: mouth 2 (two) Medical times Branch daily with meals. metFORMIN 2020-0 Yes [id number] 1000mg Take 1 [facility] 1,000 mg 3-05 tablet by ity of tablet 00:00: mouth (two) Medical times Branch daily with meals. metFORMIN 2020-0 Yes [id number] 1000mg Take 1 [facility] 1,000 mg 3-05 tablet by ity of tablet 00:00: mouth (two) Medical times Branch daily with meals. metFORMIN 2020-0 Yes [id number] 1000mg Take 1 [facility] 1,000 mg 3-05 tablet by ity of tablet 00:00: mouth (two) Medical times Branch daily with meals. metFORMIN 2020-0 Yes [id number] 1000mg Take 1 [facility] 1,000 mg 3-05 tablet by ity of tablet 00:00: mouth (two) Medical times Branch daily with meals. metFORMIN 2020-0 Yes [id number] 1000mg Take 1 [facility] 1,000 mg 3-05 tablet by [facility] of tablet 00:00: mouth (two) Medical times Branch daily with meals. metFORMIN 2020-0 Yes [id number] 1000mg Take 1 [facility] 1,000 mg 3-05 tablet by ity of tablet 00:00: mouth (two) Medical times Branch daily with meals. metFORMIN 2020-0 Yes [id number] 1000mg Take 1 [facility] 1,000 mg 3-05 tablet by ity of tablet 00:00: mouth (two) Medical times Branch daily with meals. metFORMIN 2020-0 Yes [id number] 1000mg Take 1 [facility] 1,000 mg 3-05 tablet by ity of tablet 00:00: mouth (two) Medical times Branch daily with meals. metFORMIN 2020-0 Yes [id number] 1000mg Take 1 [facility] 1,000 mg 3-05 tablet by [facility]y of tablet 00:00: mouth (two) Medical times Branch daily with meals. metFORMIN 2020-0 Yes [id number] 1000mg Take 1 [facility] 1,000 mg 3-05 tablet by ity of tablet 00:00: mouth (two) Medical times Branch daily with meals. metFORMIN 2020-0 Yes [id number] 1000mg Take 1 [facility] 1,000 mg 3-05 tablet by ity of tablet 00:00: mouth (two) Medical times Branch daily with meals. metFORMIN 2020-0 Yes [id number] 1000mg Take 1 [facility] 1,000 mg 3-05 tablet by ity of tablet 00:00: mouth (two) Medical times Branch daily with meals. metFORMIN 2020-0 Yes [id number] 1000mg Take 1 [facility] 1,000 mg 3-05 tablet by [facility] of tablet 00:00: mouth (two) Medical times Branch daily with meals. metFORMIN 2020-0 Yes [id number] 1000mg Take 1 [facility] 1,000 mg 3-05 tablet by ity of tablet 00:00: mouth (two) Medical times Branch daily with meals. metFORMIN 2020-0 Yes [id number] 1000mg Take 1 [facility] 1,000 mg 3-05 tablet by ity of tablet 00:00: mouth (two) Medical times Branch daily with meals. pioglitazon 2020-0 Yes [id number] 15mg Take 1 [facility] e 15 mg 3-05 tablet by ity of tablet 00:00: mouth (two) Medical times Branch daily. metFORMIN 2020-0 Yes [id number] 1000mg Take 1 [facility] 1,000 mg 3-05 tablet by ity of tablet 00:00: mouth (two) Medical times Branch daily with meals. pioglitazon 2020-0 Yes [id number] 15mg Take 1 [facility] e 15 mg 3-05 tablet by ity of tablet 00:00: mouth (two) Medical times Branch daily. metFORMIN 2020-0 Yes [id number] 1000mg Take 1 [facility] 1,000 mg 3-05 tablet by ity of tablet 00:00: mouth (two) Medical times Branch daily with meals. pioglitazon 2020-0 Yes [id number] 15mg Take 1 [facility] e 15 mg 3-05 tablet by ity of tablet 00:00: mouth (two) Medical times Branch daily. metFORMIN 2020-0 Yes [id number] 1000mg Take 1 [facility] 1,000 mg 3-05 tablet by [facility] of tablet 00:00: mouth (two) Medical times Branch daily with meals. pioglitazon 2020-0 Yes [id number] 15mg Take 1 [facility] e 15 mg 3-05 tablet by ity of tablet 00:00: mouth 2 [place] 00 (two) Medical times Branch daily. metFORMIN 2020-0 Yes [id number] 1000mg Take 1 [facility] 1,000 mg 3-05 tablet by ity of tablet 00:00: mouth (two) Medical times Branch daily with meals. pioglitazon 2020-0 Yes [id number] 15mg Take 1 [facility] e 15 mg 3-05 tablet by it[facility] of tablet 00:00: mouth (two) Medical times Branch daily. metFORMIN 2020-0 Yes [id number] 1000mg Take 1 [facility] 1,000 mg 3-05 tablet by ity of tablet 00:00: mouth (two) Medical times Branch daily with meals. pioglitazon 2020-0 Yes [id number] 15mg Take 1 [facility] e 15 mg 3-05 tablet by ity of tablet 00:00: mouth (two) Medical times Branch daily. metFORMIN 2020-0 Yes [id number] 1000mg Take 1 [facility] 1,000 mg 3-05 tablet by ity of tablet 00:00: mouth (two) Medical times Branch daily with meals. pioglitazon 2020-0 Yes [id number] 15mg Take 1 [facility] e 15 mg 3-05 tablet by ity of tablet 00:00: mouth (two) Medical times Branch daily. metFORMIN 2020-0 Yes [id number] 1000mg Take 1 [facility] 1,000 mg 3-05 tablet by ity of tablet 00:00: mouth (two) Medical times Branch daily with meals. pioglitazon 2020-0 Yes [id number] 15mg Take 1 [facility] e 15 mg 3-05 tablet by ity of tablet 00:00: mouth (two) Medical times Branch daily. metFORMIN 2020-0 Yes [id number] 1000mg Take 1 [facility] 1,000 mg 3-05 tablet by ity of tablet 00:00: mouth (two) Medical times Branch daily with meals. pioglitazon 2020-0 Yes [id number] 15mg Take 1 [facility] e 15 mg 3-05 tablet by ity of tablet 00:00: mouth (two) Medical times Branch daily. metFORMIN 2020-0 Yes [id number] 1000mg Take 1 [facility] 1,000 mg 3-05 tablet by ity of tablet 00:00: mouth (two) Medical times Branch daily with meals. pioglitazon 2020-0 Yes [id number] 15mg Take 1 [facility] e 15 mg 3-05 tablet by ity of tablet 00:00: mouth (two) Medical times Branch daily. metFORMIN 2020-0 Yes [id number] 1000mg Take 1 [facility] 1,000 mg 3-05 tablet by ity of tablet 00:00: mouth (two) Medical times Branch daily with meals. pioglitazon 2020-0 Yes [id number] 15mg Take 1 [facility] e 15 mg 3-05 tablet by ity of tablet 00:00: mouth (two) Medical times Branch daily. metFORMIN 2020-0 Yes [id number] 1000mg Take 1 [facility] 1,000 mg 3-05 tablet by ity of tablet 00:00: mouth (two) Medical times Branch daily with meals. pioglitazon 2020-0 Yes [id number] 15mg Take 1 [facility] e 15 mg 3-05 tablet by ity of tablet 00:00: mouth (two) Medical times Branch daily. metFORMIN 2020-0 Yes [id number] 1000mg Take 1 [facility] 1,000 mg 3-05 tablet by ity of tablet 00:00: mouth (two) Medical times Branch daily with meals. metFORMIN 2020-0 Yes [id number] 1000mg Take 1 [facility] 1,000 mg 3-05 tablet by ity of tablet 00:00: mouth (two) Medical times Branch daily with meals. metFORMIN 2020-0 Yes [id number] 1000mg Take 1 [facility] 1,000 mg 3-05 tablet by ity of tablet 00:00: mouth (two) Medical times Branch daily with meals. metFORMIN 2020-0 Yes [id number] 1000mg Take 1 [facility] 1,000 mg 3-05 tablet by ity of tablet 00:00: mouth (two) Medical times Branch daily with meals. metFORMIN 2020-0 Yes [id number] 1000mg Take 1 [facility] 1,000 mg 3-05 tablet by ity of tablet 00:00: mouth (two) Medical times Branch daily with meals. metFORMIN 2020-0 Yes [id number] 1000mg Take 1 [facility] 1,000 mg 3-05 tablet by ity of tablet 00:00: mouth (two) Medical times Branch daily with meals. metFORMIN 2020-0 Yes [id number] 1000mg Take 1 [facility] 1,000 mg 3-05 tablet by ity of tablet 00:00: mouth [place] (two) Medical times Branch daily with meals. metFORMIN 2020-0 Yes [id number] 1000mg Take 1 [facility] 1,000 mg 3-05 tablet by ity of tablet 00:00: mouth [place] (two) Medical times Branch daily with meals. metFORMIN 2020-0 Yes [id number] 1000mg Take 1 [facility] 1,000 mg 3-05 tablet by ity of tablet 00:00: mouth [place] (two) Medical times Branch daily with meals. metFORMIN 2020-0 Yes [id number] 1000mg Take 1 [facility] 1,000 mg 3-05 tablet by ity of tablet 00:00: mouth [place] (two) Medical times Branch daily with meals. metFORMIN 2020-0 Yes [id number] 1000mg Take 1 [facility] 1,000 mg 3-05 tablet by ity of tablet 00:00: mouth [place] (two) Medical times Branch daily with meals. metFORMIN 2020-0 Yes [id number] 1000mg Take 1 [facility] 1,000 mg 3-05 tablet by ity of tablet 00:00: mouth [place] (two) Medical times Branch daily with meals. metFORMIN 2020-0 Yes [id number] 1000mg Take 1 [facility] 1,000 mg 3-05 tablet by ity of tablet 00:00: mouth [place] (two) Medical times Branch daily with meals. metFORMIN 2020-0 Yes [id number] 1000mg Take 1 [facility] 1,000 mg 3-05 tablet by ity of tablet 00:00: mouth [place] (two) Medical times Branch daily with meals. metFORMIN 2020-0 Yes [id number] 1000mg Take 1 [facility] 1,000 mg 3-05 tablet by ity of tablet 00:00: mouth [place] (two) Medical times Branch daily with meals. pioglitazon 2020-0 2020- No [id number] 15mg Take 1 [facility] e 15 mg 3-05 03-13 tablet by ity of tablet 00:00: 00:00 mouth 2 [place] 00 :00 (two) Medical times Branch daily. metFORMIN 2020-0 Yes 500mg Take 500 [facility] vers 500 mg 1-29 mg by ity of tablet 20:33: mouth [address] [place] [address] 19 (two) Medical times Branch daily with meals. metFORMIN 2020-0 Yes 500mg Take 500 [facility] vers 500 mg 1-29 mg by ity of tablet 20:33: mouth 2 [place] [address] (two) Medical times Branch daily with meals. metFORMIN 2020-0 Yes 500mg Take 500 [facility] vers 500 mg 1-29 mg by ity of tablet 20:33: mouth 2 [place] [address] (two) Medical times Branch daily with meals. metFORMIN 2020-0 Yes 500mg Take 500 [facility] vers 500 mg 1-29 mg by ity of tablet 20:33: mouth 2 [place] [address] (two) Medical times Branch daily with meals. metFORMIN 2020-0 Yes 500mg Take 500 [facility] vers 500 mg 1-29 mg by ity of tablet 20:33: mouth 2 [place] [address] (two) Medical times Branch daily with meals. metFORMIN 2020-0 Yes 500mg Take 500 [facility] vers 500 mg 1-29 mg by ity of tablet 20:33: mouth 2 [place] [address] (two) Medical times Branch daily with meals. metFORMIN 2020-0 Yes 500mg Take 500 [facility] vers 500 mg 1-29 mg by ity of tablet 20:33: mouth 2 [place] [address] (two) Medical times Branch daily with meals. metFORMIN 2020-0 Yes 500mg Take 500 [facility] vers 500 mg 1-29 mg by ity of tablet 20:33: mouth 2 [place] [address] (two) Medical times Branch daily with meals. metFORMIN 2020-0 Yes 500mg Take 500 [facility] vers 500 mg 1-29 mg by ity of tablet 20:33: mouth 2 [place] [address] (two) Medical times Branch daily with meals. metFORMIN 2020-0 Yes 500mg Take 500 [facility] vers 500 mg 1-29 mg by ity of tablet 20:33: mouth 2 [place] [address] (two) Medical times Branch daily with meals. [...] at [place] 00 :00 bedtime. Medical Branch levETIRAcet 2020-0 Yes [id number] 500mg Take 1 [facility] am 500 mg 1-14 tablet by ity o f tablet 00:00: mouth 2 00 (two) Medical times Branch daily. atorvastati 2020-0 Yes [id number] 80mg Take 1 [facility] n 80 mg 1-14 tablet by ity of tablet 00:00: mouth at [place] 00 bedtime. Medical Branch blood sugar 2020-0 Yes [id number] Use BID, [facility] diagnostic 1-14 DX E11.9 ity o f (BLOOD 00:00: (Brand [place] GLUCOSE 00 upon Medical TEST) strip insurance Bra formerly [facility] approval) gabapentin 2020-0 Yes [id number] 400mg Take 1 [facility] 400 mg 1-14 capsule by ity of capsule 00:00: mouth 3 [place] 00 (three) Medical times Branch daily. QUEtiapine 2020-0 Yes [id number] 100mg Take 1 [facility] 100 mg 1-14 tablet by ity of tablet 00:00: mouth at [place] 00 bedtime. Medical Branch SERTraline 2020-0 Yes [id number] 100mg Take 1 [facility] 100 mg 1-14 tablet by ity of tablet 00:00: mouth [place] 00 every Medical morning. Branch tamsulosin 2020-0 Yes [id number] .4mg Take 1 [facility] 0.4 mg 24 1-14 capsule by ity of hr capsule 00:00: mouth [place] 00 daily. Medical Branch traZODone 2020-0 Yes [id number] 50mg Take 1 [facility] hunter 50 mg 1-14 tablet by ity of tablet 00:00: mouth at [place] 00 bedtime. Medical Branch levETIRAcet 2020-0 Yes [id number] 500mg Take 1 [facility] am 500 mg 1-14 tablet by ity o f tablet 00:00: mouth 2 00 (two) Medical times Branch daily. atorvastati 2020-0 Yes [id number] 80mg Take 1 [facility] n 80 mg 1-14 tablet by ity of tablet 00:00: mouth at [place] 00 bedtime. Medical Branch blood sugar 2020-0 Yes [id number] Use BID, [facility] diagnostic 1-14 DX E11.9 ity o f (BLOOD 00:00: (Brand [place] GLUCOSE 00 upon Medical TEST) strip insurance [facility] formerly [facility] approval) gabapentin 2020-0 Yes [id number] 400mg Take 1 [facility] 400 mg 1-14 capsule by ity of capsule 00:00: mouth 3 (three) Medical times Branch daily. QUEtiapine 2020-0 Yes [id number] 100mg Take 1 [facility] 100 mg 1-14 tablet by ity of tablet 00:00: mouth at [place] 00 bedtime. Medical Branch SERTraline 2020-0 Yes [id number] 100mg Take 1 [facility] 100 mg 1-14 tablet by ity of tablet 00:00: mouth [place] 00 every Medical morning. Branch tamsulosin 2020-0 Yes [id number] .4mg Take 1 [facility] 0.4 mg 24 1-14 capsule by ity of hr capsule 00:00: mouth [place] 00 daily. Medical Branch traZODone 2020-0 Yes [id number] 50mg Take 1 [facility] [place] 50 mg 1-14 tablet by ity of tablet 00:00: mouth at [place] 00 bedtime. Medical Branch levETIRAcet 2020-0 Yes [id number] 500mg Take 1 [facility] am 500 mg 1-14 tablet by ity o f tablet 00:00: mouth 2 (two) Medical times Branch daily. atorvastati 2020-0 Yes [id number] 80mg Take 1 [facility] n 80 mg 1-14 tablet by ity of tablet 00:00: mouth at [place] 00 bedtime. Medical Branch blood sugar 2020-0 Yes [id number] Use BID, [facility] diagnostic 1-14 DX E11.9 ity o f (BLOOD 00:00: (Brand [place] GLUCOSE 00 upon Medical TEST) strip insurance [facility] formerly [facility] approval) gabapentin 2020-0 Yes [id number] 400mg Take 1 [facility] 400 mg 1-14 capsule by ity of capsule 00:00: mouth 3 (three) Medical times Branch daily. QUEtiapine 2020-0 Yes [id number] 100mg Take 1 [facility] 100 mg 1-14 tablet by ity of tablet 00:00: mouth at [place] 00 bedtime. Medical Branch SERTraline 2020-0 Yes [id number] 100mg Take 1 [facility] 100 mg 1-14 tablet by ity of tablet 00:00: mouth [place] 00 every Medical morning. Branch tamsulosin 2020-0 Yes [id number] .4mg Take 1 [facility] 0.4 mg 24 1-14 capsule by ity of hr capsule 00:00: mouth [place] 00 daily. Medical Branch traZODone 2020-0 Yes [id number] 50mg Take 1 [facility] [place] 50 mg 1-14 tablet by ity of tablet 00:00: mouth at [place] 00 bedtime. Medical Branch levETIRAcet 2020-0 Yes [id number] 500mg Take 1 [facility] am 500 mg 1-14 tablet by ity o f tablet 00:00: mouth 2 00 (two) Medical times Branch daily. atorvastati 2020-0 Yes [id number] 80mg Take 1 [facility] n 80 mg 1-14 tablet by ity of tablet 00:00: mouth at [place] 00 bedtime. Medical Branch blood sugar 2020-0 Yes [id number] Use BID, [facility] diagnostic 1-14 DX E11.9 ity o f (BLOOD 00:00: (Brand [place] GLUCOSE 00 upon Medical TEST) strip insurance Bra formerly [facility] approval) gabapentin 2020-0 Yes [id number] 400mg Take 1 [facility] 400 mg 1-14 capsule by ity of capsule 00:00: mouth 3 00 (three) Medical times Branch daily. QUEtiapine 2020-0 Yes [id number] 100mg Take 1 [facility] 100 mg 1-14 tablet by ity of tablet 00:00: mouth at [place] 00 bedtime. Medical Branch SERTraline 2020-0 Yes [id number] 100mg Take 1 [facility] 100 mg 1-14 tablet by ity of tablet 00:00: mouth [place] 00 every Medical morning. Branch tamsulosin 2020-0 Yes [id number] .4mg Take 1 [facility] 0.4 mg 24 1-14 capsule by ity of hr capsule 00:00: mouth [place] 00 daily. Medical Branch traZODone 2020-0 Yes [id number] 50mg Take 1 [facility] [place] 50 mg 1-14 tablet by ity of tablet 00:00: mouth at [place] 00 bedtime. Medical Branch levETIRAcet 2020-0 Yes [id number] 500mg Take 1 [facility] am 500 mg 1-14 tablet by ity o f tablet 00:00: mouth 2 00 (two) Medical times Branch daily. atorvastati 2020-0 Yes [id number] 80mg Take 1 [facility] n 80 mg 1-14 tablet by ity of tablet 00:00: mouth at [place] 00 bedtime. Medical Branch blood sugar 2020-0 Yes [id number] Use BID, [facility] diagnostic 1-14 DX E11.9 ity o f (BLOOD 00:00: (Brand [place] GLUCOSE 00 upon Medical TEST) strip insurance [facility] formerly [facility] approval) gabapentin 2020-0 Yes [id number] 400mg Take 1 [facility] 400 mg 1-14 capsule by ity of capsule 00:00: mouth 3 (three) Medical times Branch daily. QUEtiapine 2020-0 Yes [id number] 100mg Take 1 [facility] 100 mg 1-14 tablet by ity of tablet 00:00: mouth at [place] 00 bedtime. Medical Branch SERTraline 2020-0 Yes [id number] 100mg Take 1 [facility] 100 mg 1-14 tablet by ity of tablet 00:00: mouth [place] 00 every Medical morning. Branch tamsulosin 2020-0 Yes [id number] .4mg Take 1 [facility] 0.4 mg 24 1-14 capsule by ity of hr capsule 00:00: mouth [place] 00 daily. Medical Branch traZODone 2020-0 Yes [id number] 50mg Take 1 [facility] [place] 50 mg 1-14 tablet by ity of tablet 00:00: mouth at [place] 00 bedtime. Medical Branch levETIRAcet 2020-0 Yes [id number] 500mg Take 1 [facility] am 500 mg 1-14 tablet by ity o f tablet 00:00: mouth 2 00 (two) Medical times Branch daily. atorvastati 2020-0 Yes [id number] 80mg Take 1 [facility] n 80 mg 1-14 tablet by ity of tablet 00:00: mouth at [place] 00 bedtime. Medical Branch blood sugar 2020-0 Yes [id number] Use BID, [facility] diagnostic 1-14 DX E11.9 ity o f (BLOOD 00:00: (Brand [place] GLUCOSE 00 upon Medical TEST) strip insurance [facility] formerly [facility] approval) gabapentin 2020-0 Yes [id number] 400mg Take 1 [facility] 400 mg 1-14 capsule by ity of capsule 00:00: mouth 3 00 (three) Medical times Branch daily. QUEtiapine 2020-0 Yes [id number] 100mg Take 1 [facility] 100 mg 1-14 tablet by ity of tablet 00:00: mouth at [place] 00 bedtime. Medical Branch SERTraline 2020-0 Yes [id number] 100mg Take 1 [facility] 100 mg 1-14 tablet by ity of tablet 00:00: mouth [place] 00 every Medical morning. Branch tamsulosin 2020-0 Yes [id number] .4mg Take 1 [facility] 0.4 mg 24 1-14 capsule by ity of hr capsule 00:00: mouth [place] 00 daily. Medical Branch traZODone 2020-0 Yes [id number] 50mg Take 1 [facility] [place] 50 mg 1-14 tablet by ity of tablet 00:00: mouth at [place] 00 bedtime. Medical Branch levETIRAcet 2020-0 Yes [id number] 500mg Take 1 [facility] am 500 mg 1-14 tablet by ity o f tablet 00:00: mouth 2 [place] (two) Medical times Branch daily. atorvastati 2020-0 Yes [id number] 80mg Take 1 [facility] n 80 mg 1-14 tablet by ity of tablet 00:00: mouth at [place] 00 bedtime. Medical Branch blood sugar 2020-0 Yes [id number] Use BID, [facility] diagnostic 1-14 DX E11.9 ity o f (BLOOD 00:00: (Brand [place] GLUCOSE 00 upon Medical TEST) strip insurance Bra formerly [facility] approval) gabapentin 2020-0 Yes [id number] 400mg Take 1 [facility] 400 mg 1-14 capsule by ity of capsule 00:00: mouth 3 [place] (three) Medical times Branch daily. QUEtiapine 2020-0 Yes [id number] 100mg Take 1 [facility] 100 mg 1-14 tablet by ity of tablet 00:00: mouth at [place] 00 bedtime. Medical Branch SERTraline 2020-0 Yes [id number] 100mg Take 1 [facility] 100 mg 1-14 tablet by ity of tablet 00:00: mouth [place] 00 every Medical morning. Branch tamsulosin 2020-0 Yes [id number] .4mg Take 1 [facility] 0.4 mg 24 1-14 capsule by ity of hr capsule 00:00: mouth [place] 00 daily. Medical Branch traZODone 2020-0 Yes [id number] 50mg Take 1 Un [place] 50 mg 1-14 tablet by ity of tablet 00:00: mouth at [place] 00 bedtime. Medical Branch levETIRAcet 2020-0 Yes [id number] 500mg Take 1 [facility] am 500 mg 1-14 tablet by ity o f tablet 00:00: mouth 2 (two) Medical times Branch daily. atorvastati 2020-0 Yes [id number] 80mg Take 1 [facility] n 80 mg 1-14 tablet by ity of tablet 00:00: mouth at [place] 00 bedtime. Medical Branch blood sugar 2020-0 Yes [id number] Use BID, [facility] diagnostic 1-14 DX E11.9 ity o f (BLOOD 00:00: (Brand [place] GLUCOSE 00 upon Medical TEST) strip insurance Bra formerly [facility] approval) gabapentin 2020-0 Yes [id number] 400mg Take 1 [facility] 400 mg 1-14 capsule by ity of capsule 00:00: mouth 3 (three) Medical times Branch daily. QUEtiapine 2020-0 Yes [id number] 100mg Take 1 [facility] 100 mg 1-14 tablet by ity of tablet 00:00: mouth at [place] 00 bedtime. Medical Branch SERTraline 2020-0 Yes [id number] 100mg Take 1 [facility] 100 mg 1-14 tablet by ity of tablet 00:00: mouth [place] 00 every Medical morning. Branch tamsulosin 2020-0 Yes [id number] .4mg Take 1 [facility] 0.4 mg 24 1-14 capsule by ity of hr capsule 00:00: mouth [place] 00 daily. Medical Branch traZODone 2020-0 Yes [id number] 50mg Take 1 Un [place] 50 mg 1-14 tablet by ity of tablet 00:00: mouth at [place] 00 bedtime. Medical Branch levETIRAcet 2020-0 Yes [id number] 500mg Take 1 [facility] am 500 mg 1-14 tablet by ity o f tablet 00:00: mouth 2 (two) Medical times Branch daily. atorvastati 2020-0 Yes [id number] 80mg Take 1 [facility] n 80 mg 1-14 tablet by ity of tablet 00:00: mouth at [place] 00 bedtime. Medical Branch blood sugar 2020-0 Yes [id number] Use BID, [facility] diagnostic 1-14 DX E11.9 ity o f (BLOOD 00:00: (Brand [place] GLUCOSE 00 upon Medical TEST) strip insurance Bra formerly [facility] approval) gabapentin 2020-0 Yes [id number] 400mg Take 1 [facility] 400 mg 1-14 capsule by ity of capsule 00:00: mouth 3 00 (three) Medical times Branch daily. QUEtiapine 2020-0 Yes [id number] 100mg Take 1 [facility] 100 mg 1-14 tablet by [facility] tablet 00:00: mouth at [place] 00 bedtime. Medical Branch SERTraline 2020-0 Yes [id number] 100mg Take 1 [facility] 100 mg 1-14 tablet by [facility] of tablet 00:00: mouth [place] 00 every Medical morning. Branch tamsulosin 2020-0 Yes [id number] .4mg Take 1 [facility] 0.4 mg 24 1-14 capsule by [facility] of hr capsule 00:00: mouth [place] 00 daily. Medical Branch traZODone 2020-0 Yes [id number] 50mg Take 1 [facility] 50 mg 1-14 tablet by [facility] of tablet 00:00: mouth at [place] 00 bedtime. Medical Branch levETIRAcet 2020-0 Yes [id number] 500mg Take 1 [facility] am 500 mg 1-14 tablet by [facility] o f tablet 00:00: mouth 2 (two) Medical times Branch daily. atorvastati 2020-0 Yes [id number] 80mg Take 1 [facility] n 80 mg 1-14 tablet by [facility] of tablet 00:00: mouth at [place] 00 bedtime. Medical Branch blood sugar 2020-0 Yes [id number] Use BID, [facility] diagnostic 1-14 DX E11.9 ity o f (BLOOD 00:00: (Brand [place] GLUCOSE 00 upon Medical TEST) strip insurance [facility] formerly [facility] approval) gabapentin 2020-0 Yes [id number] 400mg Take 1 [facility] 400 mg 1-14 capsule by [facility] of capsule 00:00: mouth 3 [place] 00 (three) Medical times Branch daily. QUEtiapine 2020-0 Yes [id number] 100mg Take 1 [facility] 100 mg 1-14 tablet by [facility] of tablet 00:00: mouth at [place] 00 bedtime. Medical Branch SERTraline 2020-0 Yes [id number] 100mg Take 1 [facility] 100 mg 1-14 tablet by it[facility] of tablet 00:00: mouth [place] 00 every Medical morning. Branch tamsulosin 2020-0 Yes [id number] .4mg Take 1 [facility] 0.4 mg 24 1-14 capsule by it[facility] of hr capsule 00:00: mouth [place] 00 daily. Medical Branch traZODone 2020-0 Yes [id number] 50mg Take 1 [facility] [place] 50 mg 1-14 tablet by [facility] of tablet 00:00: mouth at [place] 00 bedtime. Medical Branch levETIRAcet 2020-0 Yes [id number] 500mg Take 1 [facility] am 500 mg 1-14 tablet by it[facility] o f tablet 00:00: mouth 2 00 (two) Medical times Branch daily. atorvastati 2020-0 Yes [id number] 80mg Take 1 [facility] n 80 mg 1-14 tablet by [facility] of tablet 00:00: mouth at [place] 00 bedtime. Medical Branch blood sugar 2020-0 Yes [id number] Use BID, [facility] diagnostic 1-14 DX E11.9 it[facility] o f (BLOOD 00:00: (Brand [place] GLUCOSE 00 upon Medical TEST) strip insurance [facility] formerly [facility] approval) gabapentin 2020-0 Yes [id number] 400mg Take 1 [facility] 400 mg 1-14 capsule by it[facility] of capsule 00:00: mouth 3 (three) Medical times Branch daily. QUEtiapine 2020-0 Yes [id number] 100mg Take 1 [facility] 100 mg 1-14 tablet by it[facility] of tablet 00:00: mouth at [place] 00 bedtime. Medical Branch SERTraline 2020-0 Yes [id number] 100mg Take 1 [facility] 100 mg 1-14 tablet by ity of tablet 00:00: mouth [place] 00 every Medical morning. Branch tamsulosin 2020-0 Yes [id number] .4mg Take 1 [facility] 0.4 mg 24 1-14 capsule by it[facility] of hr capsule 00:00: mouth [place] 00 daily. Medical Branch traZODone 2020-0 Yes [id number] 50mg Take 1 [facility] [place] 50 mg 1-14 tablet by it[facility] of tablet 00:00: mouth at [place] 00 bedtime. Medical Branch levETIRAcet 2020-0 Yes [id number] 500mg Take 1 [facility] am 500 mg 1-14 tablet by ity o f tablet 00:00: mouth 2 00 (two) Medical times Branch daily. atorvastati 2020-0 Yes [id number] 80mg Take 1 [facility] n 80 mg 1-14 tablet by ity of tablet 00:00: mouth at [place] 00 bedtime. Medical Branch blood sugar 2020-0 Yes [id number] Use BID, [facility] diagnostic 1-14 DX E11.9 ity o f (BLOOD 00:00: (Brand [place] GLUCOSE 00 upon Medical TEST) strip insurance [facility] formerly [facility] approval) gabapentin 2020-0 Yes [id number] 400mg Take 1 [facility] 400 mg 1-14 capsule by ity of capsule 00:00: mouth 3 (three) Medical times Branch daily. QUEtiapine 2020-0 Yes [id number] 100mg Take 1 [facility] 100 mg 1-14 tablet by ity of tablet 00:00: mouth at [place] 00 bedtime. Medical Branch SERTraline 2020-0 Yes [id number] 100mg Take 1 [facility] 100 mg 1-14 tablet by ity of tablet 00:00: mouth [place] 00 every Medical morning. Branch tamsulosin 2020-0 Yes [id number] .4mg Take 1 [facility] 0.4 mg 24 1-14 capsule by ity of hr capsule 00:00: mouth 00 daily. Medical Branch traZODone 2020-0 Yes [id number] 50mg Take 1 [facility] [place] 50 mg 1-14 tablet by it[facility] of tablet 00:00: mouth at [place] 00 bedtime. Medical Branch levETIRAcet 2020-0 Yes [id number] 500mg Take 1 [facility] am 500 mg 1-14 tablet by ity o f tablet 00:00: mouth 2 (two) Medical times Branch daily. atorvastati 2020-0 Yes [id number] 80mg Take 1 [facility] n 80 mg 1-14 tablet by ity of tablet 00:00: mouth at [place] 00 bedtime. Medical Branch blood sugar 2020-0 Yes [id number] Use BID, [facility] diagnostic 1-14 DX E11.9 ity o f (BLOOD 00:00: ([facility] GLUCOSE 00 upon Medical TEST) strip insurance [facility] approval) gabapentin 2020-0 Yes [id number] 400mg Take 1 [facility] 400 mg 1-14 capsule by ity of capsule 00:00: mouth 3 (three) Medical times Branch daily. QUEtiapine 2020-0 Yes [id number] 100mg Take 1 [facility] 100 mg 1-14 tablet by ity of tablet 00:00: mouth at [place] 00 bedtime. Medical Branch SERTraline 2020-0 Yes [id number] 100mg Take 1 [facility] 100 mg 1-14 tablet by ity of tablet 00:00: mouth [place] 00 every Medical morning. Branch tamsulosin 2020-0 Yes [id number] .4mg Take 1 [facility] 0.4 mg 24 1-14 capsule by ity of hr capsule 00:00: mouth [place] 00 daily. Medical Branch traZODone 2020-0 Yes [id number] 50mg Take 1 [facility] [place] 50 mg 1-14 tablet by ity of tablet 00:00: mouth at [place] 00 bedtime. Medical Branch levETIRAcet 2020-0 Yes [id number] 500mg Take 1 [facility] am 500 mg 1-14 tablet by ity o f tablet 00:00: mouth 2 [place] (two) Medical times Branch daily. atorvastati 2020-0 Yes [id number] 80mg Take 1 [facility] n 80 mg 1-14 tablet by ity of tablet 00:00: mouth at [place] 00 bedtime. Medical Branch blood sugar 2020-0 Yes [id number] Use BID, [facility] diagnostic 1-14 DX E11.9 ity o f (BLOOD 00:00: (Brand [place] GLUCOSE 00 upon Medical TEST) strip insurance [facility] formerly [facility] approval) gabapentin 2020-0 Yes [id number] 400mg Take 1 [facility] 400 mg 1-14 capsule by ity of capsule 00:00: mouth 3 [place] (three) Medical times Branch daily. QUEtiapine 2020-0 Yes [id number] 100mg Take 1 [facility] 100 mg 1-14 tablet by ity of tablet 00:00: mouth at [place] 00 bedtime. Medical Branch SERTraline 2020-0 Yes [id number] 100mg Take 1 [facility] 100 mg 1-14 tablet by ity of tablet 00:00: mouth [place] 00 every Medical morning. Branch tamsulosin 2020-0 Yes [id number] .4mg Take 1 [facility] 0.4 mg 24 1-14 capsule by ity of hr capsule 00:00: mouth [place] 00 daily. Medical Branch traZODone 2020-0 Yes [id number] 50mg Take 1 [facility] [place] 50 mg 1-14 tablet by ity of tablet 00:00: mouth at [place] 00 bedtime. Medical Branch levETIRAcet 2020-0 Yes [id number] 500mg Take 1 [facility] am 500 mg 1-14 tablet by ity o f tablet 00:00: mouth 2 [place] (two) Medical times Branch daily. atorvastati 2020-0 Yes [id number] 80mg Take 1 [facility] n 80 mg 1-14 tablet by ity of tablet 00:00: mouth at [place] 00 bedtime. Medical Branch blood sugar 2020-0 Yes [id number] Use BID, [facility] diagnostic 1-14 DX E11.9 ity o f (BLOOD 00:00: (Brand [place] GLUCOSE 00 upon Medical TEST) strip insurance [facility] formerly [facility] approval) gabapentin 2020-0 Yes [id number] 400mg Take 1 [facility] 400 mg 1-14 capsule by ity of capsule 00:00: mouth 3 (three) Medical times Branch daily. QUEtiapine 2020-0 Yes [id number] 100mg Take 1 [facility] 100 mg 1-14 tablet by ity of tablet 00:00: mouth at [place] 00 bedtime. Medical Branch SERTraline 2020-0 Yes [id number] 100mg Take 1 [facility] 100 mg 1-14 tablet by ity of tablet 00:00: mouth [place] 00 every Medical morning. Branch tamsulosin 2020-0 Yes [id number] .4mg Take 1 [facility] 0.4 mg 24 1-14 capsule by ity of hr capsule 00:00: mouth [place] 00 daily. Medical Branch traZODone 2020-0 Yes [id number] 50mg Take 1 [facility] [place] 50 mg 1-14 tablet by ity of tablet 00:00: mouth at [place] 00 bedtime. Medical Branch levETIRAcet 2020-0 Yes [id number] 500mg Take 1 [facility] am 500 mg 1-14 tablet by ity o f tablet 00:00: mouth 2 (two) Medical times Branch daily. atorvastati 2020-0 Yes [id number] 80mg Take 1 [facility] n 80 mg 1-14 tablet by ity of tablet 00:00: mouth at [place] 00 bedtime. Medical Branch blood sugar 2020-0 Yes [id number] Use BID, [facility] diagnostic 1-14 DX E11.9 ity o f (BLOOD 00:00: ([facility] GLUCOSE 00 upon Medical TEST) strip insurance [facility] formerly [facility] approval) gabapentin 2020-0 Yes [id number] 400mg Take 1 [facility] 400 mg 1-14 capsule by ity of capsule 00:00: mouth 3 (three) Medical times Branch daily. QUEtiapine 2020-0 Yes [id number] 100mg Take 1 [facility] 100 mg 1-14 tablet by ity of tablet 00:00: mouth at [place] 00 bedtime. Medical Branch SERTraline 2020-0 Yes [id number] 100mg Take 1 [facility] 100 mg 1-14 tablet by ity of tablet 00:00: mouth [place] 00 every Medical morning. Branch tamsulosin 2020-0 Yes [id number] .4mg Take 1 [facility] 0.4 mg 24 1-14 capsule by ity of hr capsule 00:00: mouth 00 daily. Medical Branch traZODone 2020-0 Yes [id number] 50mg Take 1 [facility] [place] 50 mg 1-14 tablet by ity of tablet 00:00: mouth at [place] bedtime. Medical Branch levETIRAcet 2020-0 Yes [id number] 500mg Take 1 [facility] am 500 mg 1-14 tablet by ity o f tablet 00:00: mouth 2 [place] (two) Medical times Branch daily. atorvastati 2020-0 Yes [id number] 80mg Take 1 [facility] n 80 mg 1-14 tablet by ity of tablet 00:00: mouth at [place] [address] bedtime. Medical Branch blood sugar 2020-0 Yes [id number] Use BID, [facility] diagnostic 1-14 DX E11.9 ity o f (BLOOD 00:00: (Brand [place] GLUCOSE 00 upon Medical TEST) strip insurance [facility] formerly [facility] approval) gabapentin 2020-0 Yes [id number] 400mg Take 1 [facility] 400 mg 1-14 capsule by ity of capsule 00:00: mouth 3 [place] (three) Medical times Branch daily. QUEtiapine 2020-0 Yes [id number] 100mg Take 1 [facility] 100 mg 1-14 tablet by ity of tablet 00:00: mouth at [place] 00 bedtime. Medical Branch SERTraline 2020-0 Yes [id number] 100mg Take 1 [facility] 100 mg 1-14 tablet by ity of tablet 00:00: mouth [place] 00 every Medical morning. Branch tamsulosin 2020-0 Yes [id number] .4mg Take 1 [facility] 0.4 mg 24 1-14 capsule by ity of hr capsule 00:00: mouth 00 daily. Medical Branch traZODone 2020-0 Yes [id number] 50mg Take 1 [facility] [place] 50 mg 1-14 tablet by ity of tablet 00:00: mouth at [place] 00 bedtime. Medical Branch levETIRAcet 2020-0 Yes [id number] 500mg Take 1 [facility] am 500 mg 1-14 tablet by ity o f tablet 00:00: mouth 2 [place] (two) Medical times Branch daily. atorvastati 2020-0 Yes [id number] 80mg Take 1 [facility] n 80 mg 1-14 tablet by ity of tablet 00:00: mouth at [place] [address] bedtime. Medical Branch blood sugar 2020-0 Yes [id number] Use BID, [facility] diagnostic 1-14 DX E11.9 ity o f (BLOOD 00:00: (Brand [place] GLUCOSE 00 upon Medical TEST) strip insurance [facility] formerly [facility] approval) gabapentin 2020-0 Yes [id number] 400mg Take 1 [facility] 400 mg 1-14 capsule by ity of capsule 00:00: mouth 3 00 (three) Medical times Branch daily. Pioglitazon 2020-0 Yes [id number] 1{tbl} Take 1 [facility] e-Metformin 1-14 tablet by ity of 15-1,000 mg 00:00: mouth 2 [place] [facility] 00 (two) Medical times Branch daily with meals. QUEtiapine 2020-0 Yes [id number] 100mg Take 1 [facility] 100 mg 1-14 tablet by ity of tablet 00:00: mouth at [place] 00 bedtime. Medical Branch SERTraline 2020-0 Yes [id number] 100mg Take 1 [facility] 100 mg 1-14 tablet by ity of tablet 00:00: mouth [place] 00 every Medical morning. Branch tamsulosin 2020-0 Yes [id number] .4mg Take 1 [facility] 0.4 mg 24 1-14 capsule by ity of hr capsule 00:00: mouth [place] 00 daily. Medical Branch traZODone 2020-0 Yes [id number] 50mg Take 1 [facility] [place] 50 mg 1-14 tablet by ity of tablet 00:00: mouth at [place] 00 bedtime. Medical Branch levETIRAcet 2020-0 Yes [id number] 500mg Take 1 [facility] am 500 mg 1-14 tablet by ity o f tablet 00:00: mouth 2 [place] 00 (two) Medical times Branch daily. atorvastati 2020-0 Yes [id number] 80mg Take 1 [facility] n 80 mg 1-14 tablet by ity of tablet 00:00: mouth at [place] 00 bedtime. Medical Branch blood sugar 2020-0 Yes [id number] Use BID, [facility] diagnostic 1-14 DX E11.9 ity o f (BLOOD 00:00: (Brand [place] GLUCOSE 00 upon Medical TEST) strip insurance [facility] formerly [facility] approval) gabapentin 2020-0 Yes [id number] 400mg Take 1 [facility] 400 mg 1-14 capsule by ity of capsule 00:00: mouth 3 00 (three) Medical times Branch daily. Pioglitazon 2020-0 Yes [id number] 1{tbl} Take 1 [facility] e-Metformin 1-14 tablet by ity of 15-1,000 mg 00:00: mouth 2 [place] [facility] 00 (two) Medical times Branch daily with meals. QUEtiapine 2020-0 Yes [id number] 100mg Take 1 [facility] 100 mg 1-14 tablet by ity of tablet 00:00: mouth at [place] 00 bedtime. Medical Branch SERTraline 2020-0 Yes [id number] 100mg Take 1 [facility] 100 mg 1-14 tablet by ity of tablet 00:00: mouth [place] 00 every Medical morning. Branch tamsulosin 2020-0 Yes [id number] .4mg Take 1 [facility] 0.4 mg 24 1-14 capsule by ity of hr capsule 00:00: mouth [place] 00 daily. Medical Branch traZODone 2020-0 Yes [id number] 50mg Take 1 [facility] [place] 50 mg 1-14 tablet by ity of tablet 00:00: mouth at [place] 00 bedtime. Medical Branch levETIRAcet 2020-0 Yes [id number] 500mg Take 1 [facility] am 500 mg 1-14 tablet by ity o f tablet 00:00: mouth 2 [place] 00 (two) Medical times Branch daily. atorvastati 2020-0 Yes [id number] 80mg Take 1 [facility] n 80 mg 1-14 tablet by ity of tablet 00:00: mouth at [place] 00 bedtime. Medical Branch blood sugar 2020-0 Yes [id number] Use BID, [facility] diagnostic 1-14 DX E11.9 ity o f (BLOOD 00:00: (Brand [place] GLUCOSE 00 upon Medical TEST) strip insurance [facility] formerly [facility] approval) gabapentin 2020-0 Yes [id number] 400mg Take 1 [facility] 400 mg 1-14 capsule by ity of capsule 00:00: mouth 3 [place] 00 (three) Medical times Branch daily. Pioglitazon 2020-0 Yes [id number] 1{tbl} Take 1 [facility] e-Metformin 1-14 tablet by ity of 15-1,000 mg 00:00: mouth 2 [place] [facility] 00 (two) Medical times Branch daily with meals. QUEtiapine 2020-0 Yes [id number] 100mg Take 1 [facility] 100 mg 1-14 tablet by ity of tablet 00:00: mouth at [place] 00 bedtime. Medical Branch SERTraline 2020-0 Yes [id number] 100mg Take 1 [facility] 100 mg 1-14 tablet by ity of tablet 00:00: mouth [place] 00 every Medical morning. Branch tamsulosin 2020-0 Yes [id number] .4mg Take 1 [facility] 0.4 mg 24 1-14 capsule by ity of hr capsule 00:00: mouth [place] 00 daily. Medical Branch traZODone 2020-0 Yes [id number] 50mg Take 1 [facility] [place] 50 mg 1-14 tablet by ity of tablet 00:00: mouth at [place] 00 bedtime. Medical Branch levETIRAcet 2020-0 Yes [id number] 500mg Take 1 [facility] am 500 mg 1-14 tablet by ity o f tablet 00:00: mouth 2 [place] 00 (two) Medical times Branch daily. atorvastati 2020-0 Yes [id number] 80mg Take 1 [facility] n 80 mg 1-14 tablet by ity of tablet 00:00: mouth at [place] 00 bedtime. Medical Branch blood sugar 2020-0 Yes [id number] Use BID, [facility] diagnostic 1-14 DX E11.9 ity o f (BLOOD 00:00: (Brand [place] GLUCOSE 00 upon Medical TEST) strip insurance [facility] formerly [facility] approval) gabapentin 2020-0 Yes [id number] 400mg Take 1 [facility] 400 mg 1-14 capsule by ity of capsule 00:00: mouth 3 [place] 00 (three) Medical times Branch daily. Pioglitazon 2020-0 Yes [id number] 1{tbl} Take 1 [facility] e-Metformin 1-14 tablet by ity of 15-1,000 mg 00:00: mouth 2 [place] [facility] 00 (two) Medical times Branch daily with meals. QUEtiapine 2020-0 Yes [id number] 100mg Take 1 [facility] 100 mg 1-14 tablet by ity of tablet 00:00: mouth at [place] 00 bedtime. Medical Branch SERTraline 2020-0 Yes [id number] 100mg Take 1 [facility] 100 mg 1-14 tablet by ity of tablet 00:00: mouth [place] 00 every Medical morning. Branch tamsulosin 2020-0 Yes [id number] .4mg Take 1 [facility] 0.4 mg 24 1-14 capsule by ity of hr capsule 00:00: mouth [place] 00 daily. Medical Branch traZODone 2020-0 Yes [id number] 50mg Take 1 [facility] [place] 50 mg 1-14 tablet by ity of tablet 00:00: mouth at [place] 00 bedtime. Medical Branch levETIRAcet 2020-0 Yes [id number] 500mg Take 1 [facility] am 500 mg 1-14 tablet by ity o f tablet 00:00: mouth 2 [place] 00 (two) Medical times Branch daily. atorvastati 2020-0 Yes [id number] 80mg Take 1 [facility] n 80 mg 1-14 tablet by ity of tablet 00:00: mouth at [place] [address] bedtime. Medical Branch blood sugar 2020-0 Yes [id number] Use BID, [facility] diagnostic 1-14 DX E11.9 ity o f (BLOOD 00:00: (Brand [place] GLUCOSE 00 upon Medical TEST) strip insurance [facility] formerly [facility] approval) gabapentin 2020-0 Yes [id number] 400mg Take 1 [facility] 400 mg 1-14 capsule by ity of capsule 00:00: mouth 3 [place] (three) Medical times Branch daily. Pioglitazon 2020-0 Yes [id number] 1{tbl} Take 1 [facility] e-Metformin 1-14 tablet by ity of 15-1,000 mg 00:00: mouth 2 [place] [facility] 00 (two) Medical times Branch daily with meals. QUEtiapine 2020-0 Yes [id number] 100mg Take 1 [facility] 100 mg 1-14 tablet by ity of tablet 00:00: mouth at [place] [address] bedtime. Medical Branch SERTraline 2020-0 Yes [id number] 100mg Take 1 [facility] 100 mg 1-14 tablet by ity of tablet 00:00: mouth [place] 00 every Medical morning. Branch tamsulosin 2020-0 Yes [id number] .4mg Take 1 [facility] 0.4 mg 24 1-14 capsule by ity of hr capsule 00:00: mouth [place] 00 daily. Medical Branch traZODone 2020-0 Yes [id number] 50mg Take 1 [facility] [place] 50 mg 1-14 tablet by ity of tablet 00:00: mouth at [place] 00 bedtime. Medical Branch levETIRAcet 2020-0 Yes [id number] 500mg Take 1 [facility] am 500 mg 1-14 tablet by ity o f tablet 00:00: mouth 2 [place] 00 (two) Medical times Branch daily. atorvastati 2020-0 Yes [id number] 80mg Take 1 [facility] n 80 mg 1-14 tablet by ity of tablet 00:00: mouth at [place] [address] bedtime. Medical Branch blood sugar 2020-0 Yes [id number] Use BID, [facility] diagnostic 1-14 DX E11.9 ity o f (BLOOD 00:00: (Brand [place] GLUCOSE 00 upon Medical TEST) strip insurance [facility] formerly [facility] approval) gabapentin 2020-0 Yes [id number] 400mg Take 1 [facility] 400 mg 1-14 capsule by ity of capsule 00:00: mouth 3 [place] 00 (three) Medical times Branch daily. Pioglitazon 2020-0 Yes [id number] 1{tbl} Take 1 [facility] e-Metformin 1-14 tablet by ity of 15-1,000 mg 00:00: mouth 2 [place] [facility] 00 (two) Medical times Branch daily with meals. QUEtiapine 2020-0 Yes [id number] 100mg Take 1 [facility] 100 mg 1-14 tablet by ity of tablet 00:00: mouth at [place] 00 bedtime. Medical Branch SERTraline 2020-0 Yes [id number] 100mg Take 1 [facility] 100 mg 1-14 tablet by ity of tablet 00:00: mouth [place] 00 every Medical morning. Branch tamsulosin 2020-0 Yes [id number] .4mg Take 1 [facility] 0.4 mg 24 1-14 capsule by ity of hr capsule 00:00: mouth [place] 00 daily. Medical Branch traZODone 2020-0 Yes [id number] 50mg Take 1 [facility] [place] 50 mg 1-14 tablet by ity of tablet 00:00: mouth at [place] 00 bedtime. Medical Branch levETIRAcet 2020-0 Yes [id number] 500mg Take 1 [facility] am 500 mg 1-14 tablet by ity o f tablet 00:00: mouth 2 [place] 00 (two) Medical times Branch daily. atorvastati 2020-0 Yes [id number] 80mg Take 1 [facility] n 80 mg 1-14 tablet by ity of tablet 00:00: mouth at [place] 00 bedtime. Medical Branch blood sugar 2020-0 Yes [id number] Use BID, [facility] diagnostic 1-14 DX E11.9 ity o f (BLOOD 00:00: (Brand [place] GLUCOSE 00 upon Medical TEST) strip insurance [facility] formerly [facility] approval) gabapentin 2020-0 Yes [id number] 400mg Take 1 [facility] 400 mg 1-14 capsule by ity of capsule 00:00: mouth 3 [place] 00 (three) Medical times Branch daily. Pioglitazon 2020-0 Yes [id number] 1{tbl} Take 1 [facility] e-Metformin 1-14 tablet by ity of 15-1,000 mg 00:00: mouth 2 [place] [facility] 00 (two) Medical times Branch daily with meals. QUEtiapine 2020-0 Yes [id number] 100mg Take 1 [facility] 100 mg 1-14 tablet by ity of tablet 00:00: mouth at [place] 00 bedtime. Medical Branch SERTraline 2020-0 Yes [id number] 100mg Take 1 [facility] 100 mg 1-14 tablet by ity of tablet 00:00: mouth [place] 00 every Medical morning. Branch tamsulosin 2020-0 Yes [id number] .4mg Take 1 [facility] 0.4 mg 24 1-14 capsule by ity of hr capsule 00:00: mouth [place] 00 daily. Medical Branch traZODone 2020-0 Yes [id number] 50mg Take 1 [place] 50 mg 1-14 tablet by ity of tablet 00:00: mouth at [place] 00 bedtime. Medical Branch levETIRAcet 2020-0 Yes [id number] 500mg Take 1 [facility] am 500 mg 1-14 tablet by ity o f tablet 00:00: mouth 2 [place] 00 (two) Medical times Branch daily. atorvastati 2020-0 Yes [id number] 80mg Take 1 [facility] n 80 mg 1-14 tablet by ity of tablet 00:00: mouth at [place] 00 bedtime. Medical Branch blood sugar 2020-0 Yes [id number] Use BID, [facility] diagnostic 1-14 DX E11.9 ity o f (BLOOD 00:00: (Brand [place] GLUCOSE 00 upon Medical TEST) strip insurance [facility] formerly [facility] approval) gabapentin 2020-0 Yes [id number] 400mg Take 1 [facility] 400 mg 1-14 capsule by ity of capsule 00:00: mouth 3 [place] 00 (three) Medical times Branch daily. Pioglitazon 2020-0 Yes [id number] 1{tbl} Take 1 [facility] e-Metformin 1-14 tablet by ity of 15-1,000 mg 00:00: mouth 2 [place] [facility] 00 (two) Medical times Branch daily with meals. QUEtiapine 2020-0 Yes [id number] 100mg Take 1 [facility] 100 mg 1-14 tablet by ity of tablet 00:00: mouth at [place] 00 bedtime. Medical Branch SERTraline 2020-0 Yes [id number] 100mg Take 1 [facility] 100 mg 1-14 tablet by ity of tablet 00:00: mouth [place] 00 every Medical morning. Branch tamsulosin 2020-0 Yes [id number] .4mg Take 1 [facility] 0.4 mg 24 1-14 capsule by ity of hr capsule 00:00: mouth [place] 00 daily. Medical Branch traZODone 2020-0 Yes [id number] 50mg Take 1 [facility] [place] 50 mg 1-14 tablet by ity of tablet 00:00: mouth at [place] 00 bedtime. Medical Branch levETIRAcet 2020-0 Yes [id number] 500mg Take 1 [facility] am 500 mg 1-14 tablet by ity o f tablet 00:00: mouth 2 [place] 00 (two) Medical times Branch daily. atorvastati 2020-0 Yes [id number] 80mg Take 1 [facility] n 80 mg 1-14 tablet by ity of tablet 00:00: mouth at [place] 00 bedtime. Medical Branch blood sugar 2020-0 Yes [id number] Use BID, [facility] diagnostic 1-14 DX E11.9 ity o f (BLOOD 00:00: (Brand [place] GLUCOSE 00 upon Medical TEST) strip insurance [facility] formerly [facility] approval) gabapentin 2020-0 Yes [id number] 400mg Take 1 [facility] 400 mg 1-14 capsule by ity of capsule 00:00: mouth 3 [place] 00 (three) Medical times Branch daily. Pioglitazon 2020-0 Yes [id number] 1{tbl} Take 1 [facility] e-Metformin 1-14 tablet by ity of 15-1,000 mg 00:00: mouth 2 [place] [facility] 00 (two) Medical times Branch daily with meals. QUEtiapine 2020-0 Yes [id number] 100mg Take 1 [facility] 100 mg 1-14 tablet by ity of tablet 00:00: mouth at [place] 00 bedtime. Medical Branch SERTraline 2020-0 Yes [id number] 100mg Take 1 [facility] 100 mg 1-14 tablet by ity of tablet 00:00: mouth [place] 00 every Medical morning. Branch tamsulosin 2020-0 Yes [id number] .4mg Take 1 [facility] 0.4 mg 24 1-14 capsule by ity of hr capsule 00:00: mouth [place] 00 daily. Medical Branch traZODone 2020-0 Yes [id number] 50mg Take 1 [place] 50 mg 1-14 tablet by ity of tablet 00:00: mouth at [place] 00 bedtime. Medical Branch levETIRAcet 2020-0 Yes [id number] 500mg Take 1 [facility] am 500 mg 1-14 tablet by ity o f tablet 00:00: mouth 2 [place] 00 (two) Medical times Branch daily. atorvastati 2020-0 Yes [id number] 80mg Take 1 [facility] n 80 mg 1-14 tablet by ity of tablet 00:00: mouth at [place] 00 bedtime. Medical Branch blood sugar 2020-0 Yes [id number] Use BID, [facility] diagnostic 1-14 DX E11.9 ity o f (BLOOD 00:00: (Brand [place] GLUCOSE 00 upon Medical TEST) strip insurance [facility] formerly [facility] approval) gabapentin 2020-0 Yes [id number] 400mg Take 1 [facility] 400 mg 1-14 capsule by ity of capsule 00:00: mouth 3 [place] (three) Medical times Branch daily. Pioglitazon 2020-0 Yes [id number] 1{tbl} Take 1 [facility] e-Metformin 1-14 tablet by ity of 15-1,000 mg 00:00: mouth 2 [place] [facility] 00 (two) Medical times Branch daily with meals. QUEtiapine 2020-0 Yes [id number] 100mg Take 1 [facility] 100 mg 1-14 tablet by ity of tablet 00:00: mouth at [place] 00 bedtime. Medical Branch SERTraline 2020-0 Yes [id number] 100mg Take 1 [facility] 100 mg 1-14 tablet by [facility] of tablet 00:00: mouth [place] 00 every Medical morning. Branch tamsulosin 2020-0 Yes [id number] .4mg Take 1 [facility] 0.4 mg 24 1-14 capsule by [facility] of hr capsule 00:00: mouth [place] 00 daily. Medical Branch traZODone 2020-0 Yes [id number] 50mg Take 1 [facility] [place] 50 mg 1-14 tablet by [facility] of tablet 00:00: mouth at [place] 00 bedtime. Medical Branch levETIRAcet 2020-0 Yes [id number] 500mg Take 1 [facility] am 500 mg 1-14 tablet by [facility] o f tablet 00:00: mouth 2 [place] 00 (two) Medical times Branch daily. atorvastati 2020-0 Yes [id number] 80mg Take 1 [facility] n 80 mg 1-14 tablet by [facility] of tablet 00:00: mouth at [place] 00 bedtime. Medical Branch blood sugar 2020-0 Yes [id number] Use BID, [facility] diagnostic 1-14 DX E11.9 ity o f (BLOOD 00:00: (Brand [place] GLUCOSE 00 upon Medical TEST) strip insurance [facility] formerly [facility] approval) gabapentin 2020-0 Yes [id number] 400mg Take 1 [facility] 400 mg 1-14 capsule by it[facility] of capsule 00:00: mouth 3 [place] 00 (three) Medical times Branch daily. Pioglitazon 2020-0 Yes [id number] 1{tbl} Take 1 [facility] e-Metformin 1-14 tablet by ity of 15-1,000 mg 00:00: mouth 2 [place] TM24 00 (two) Medical times Branch daily with meals. QUEtiapine 2020-0 Yes [id number] 100mg Take 1 [facility] 100 mg 1-14 tablet by ity of tablet 00:00: mouth at [place] 00 bedtime. Medical Branch SERTraline 2020-0 Yes [id number] 100mg Take 1 [facility] 100 mg 1-14 tablet by ity of tablet 00:00: mouth [place] 00 every Medical morning. Branch tamsulosin 2020-0 Yes [id number] .4mg Take 1 [facility] 0.4 mg 24 1-14 capsule by it[facility] of hr capsule 00:00: mouth [place] 00 daily. Medical Branch traZODone 2020-0 Yes [id number] 50mg Take 1 [facility] [place] 50 mg 1-14 tablet by [facility] of tablet 00:00: mouth at [place] 00 bedtime. Medical Branch levETIRAcet 2020-0 Yes [id number] 500mg Take 1 [facility] am 500 mg 1-14 tablet by ity o f tablet 00:00: mouth 2 [place] 00 (two) Medical times Branch daily. atorvastati 2020-0 Yes [id number] 80mg Take 1 [facility] n 80 mg 1-14 tablet by it[facility] of tablet 00:00: mouth at [place] 00 bedtime. Medical Branch blood sugar 2020-0 Yes [id number] Use BID, [facility] diagnostic 1-14 DX E11.9 it[facility] o f (BLOOD 00:00: (Brand [place] GLUCOSE 00 upon Medical TEST) strip insurance [facility] formerly [facility] approval) gabapentin 2020-0 Yes [id number] 400mg Take 1 [facility] 400 mg 1-14 capsule by ity of capsule 00:00: mouth 3 [place] 00 (three) Medical times Branch daily. Pioglitazon 2020-0 Yes [id number] 1{tbl} Take 1 [facility] e-Metformin 1-14 tablet by ity of 15-1,000 mg 00:00: mouth 2 [place] [facility] 00 (two) Medical times Branch daily with meals. QUEtiapine 2020-0 Yes [id number] 100mg Take 1 [facility] 100 mg 1-14 tablet by ity of tablet 00:00: mouth at [place] 00 bedtime. Medical Branch SERTraline 2020-0 Yes [id number] 100mg Take 1 [facility] 100 mg 1-14 tablet by ity of tablet 00:00: mouth [place] 00 every Medical morning. Branch tamsulosin 2020-0 Yes [id number] .4mg Take 1 [facility] 0.4 mg 24 1-14 capsule by ity of hr capsule 00:00: mouth [place] 00 daily. Medical Branch traZODone 2020-0 Yes [id number] 50mg Take 1 [facility] [place] 50 mg 1-14 tablet by it[facility] of tablet 00:00: mouth at [place] 00 bedtime. Medical Branch levETIRAcet 2020-0 Yes [id number] 500mg Take 1 [facility] am 500 mg 1-14 tablet by ity o f tablet 00:00: mouth 2 [place] 00 (two) Medical times Branch daily. atorvastati 2019-0 Yes [id number] 80mg Take 1 [facility] n 80 mg 1-14 tablet by ity of tablet 00:00: mouth at [place] 00 bedtime. Medical Branch blood sugar 2020-0 Yes [id number] Use BID, [facility] diagnostic 1-14 DX E11.9 ity o f (BLOOD 00:00: (Brand [place] GLUCOSE 00 upon Medical TEST) strip insurance [facility] formerly [facility] approval) gabapentin 2020-0 Yes [id number] 400mg Take 1 [facility] 400 mg 1-14 capsule by ity of capsule 00:00: mouth 3 [place] 00 (three) Medical times Branch daily. Pioglitazon 2020-0 Yes [id number] 1{tbl} Take 1 [facility] e-Metformin 1-14 tablet by ity of 15-1,000 mg 00:00: mouth 2 [place] [facility]24 00 (two) Medical times Branch daily with meals. QUEtiapine 2020-0 Yes [id number] 100mg Take 1 [facility] 100 mg 1-14 tablet by ity of tablet 00:00: mouth at [place] 00 bedtime. Medical Branch SERTraline 2020-0 Yes [id number] 100mg Take 1 [facility] 100 mg 1-14 tablet by ity of tablet 00:00: mouth [place] 00 every Medical morning. Branch tamsulosin 2020-0 Yes [id number] .4mg Take 1 [facility] 0.4 mg 24 1-14 capsule by ity of hr capsule 00:00: mouth [place] 00 daily. Medical Branch traZODone 2020-0 Yes [id number] 50mg Take 1 [facility] [place] 50 mg 1-14 tablet by ity of tablet 00:00: mouth at [place] 00 bedtime. Medical Branch levETIRAcet 2020-0 Yes [id number] 500mg Take 1 [facility] am 500 mg 1-14 tablet by ity o f tablet 00:00: mouth 2 [place] 00 (two) Medical times Branch daily. atorvastati 2020-0 Yes [id number] 80mg Take 1 [facility] n 80 mg 1-14 tablet by ity of tablet 00:00: mouth at [place] 00 bedtime. Medical Branch blood sugar 2020-0 Yes [id number] Use BID, [facility] diagnostic 1-14 DX E11.9 ity o f (BLOOD 00:00: (Brand [place] GLUCOSE 00 upon Medical TEST) strip insurance [facility] formerly [facility] approval) gabapentin 2020-0 Yes [id number] 400mg Take 1 [facility] 400 mg 1-14 capsule by ity of capsule 00:00: mouth 3 [place] 00 (three) Medical times Branch daily. Pioglitazon 2020-0 Yes [id number] 1{tbl} Take 1 [facility] e-Metformin 1-14 tablet by ity of 15-1,000 mg 00:00: mouth 2 [place] [facility] 00 (two) Medical times Branch daily with meals. QUEtiapine 2020-0 Yes [id number] 100mg Take 1 [facility] 100 mg 1-14 tablet by ity of tablet 00:00: mouth at [place] 00 bedtime. Medical Branch SERTraline 2020-0 Yes [id number] 100mg Take 1 [facility] 100 mg 1-14 tablet by ity of tablet 00:00: mouth [place] 00 every Medical morning. Branch tamsulosin 2020-0 Yes [id number] .4mg Take 1 [facility] 0.4 mg 24 1-14 capsule by ity of hr capsule 00:00: mouth [place] 00 daily. Medical Branch traZODone 2020-0 Yes [id number] 50mg Take 1 [facility] [place] 50 mg 1-14 tablet by ity of tablet 00:00: mouth at [place] 00 bedtime. Medical Branch levETIRAcet 2020-0 Yes [id number] 500mg Take 1 [facility] am 500 mg 1-14 tablet by ity o f tablet 00:00: mouth 2 [place] 00 (two) Medical times Branch daily. atorvastati 2020-0 Yes [id number] 80mg Take 1 [facility] n 80 mg 1-14 tablet by ity of tablet 00:00: mouth at [place] 00 bedtime. Medical Branch blood sugar 2020-0 Yes [id number] Use BID, [facility] diagnostic 1-14 DX E11.9 ity o f (BLOOD 00:00: (Brand [place] GLUCOSE 00 upon Medical TEST) strip insurance [facility] formerly [facility] approval) gabapentin 2020-0 Yes [id number] 400mg Take 1 [facility] 400 mg 1-14 capsule by ity of capsule 00:00: mouth 3 (three) Medical times Branch daily. Pioglitazon 2020-0 Yes [id number] 1{tbl} Take 1 [facility] e-Metformin 1-14 tablet by ity of 15-1,000 mg 00:00: mouth 2 [place] [facility] 00 (two) Medical times Branch daily with meals. QUEtiapine 2020-0 Yes [id number] 100mg Take 1 [facility] 100 mg 1-14 tablet by ity of tablet 00:00: mouth at [place] 00 bedtime. Medical Branch SERTraline 2020-0 Yes [id number] 100mg Take 1 [facility] 100 mg 1-14 tablet by ity of tablet 00:00: mouth [place] 00 every Medical morning. Branch tamsulosin 2020-0 Yes [id number] .4mg Take 1 [facility] 0.4 mg 24 1-14 capsule by ity of hr capsule 00:00: mouth [place] 00 daily. Medical Branch traZODone 2020-0 Yes [id number] 50mg Take 1 [facility] [place] 50 mg 1-14 tablet by ity of tablet 00:00: mouth at [place] 00 bedtime. Medical Branch levETIRAcet 2020-0 Yes [id number] 500mg Take 1 [facility] am 500 mg 1-14 tablet by ity o f tablet 00:00: mouth 2 [place] 00 (two) Medical times Branch daily. atorvastati 2020-0 Yes [id number] 80mg Take 1 [facility] n 80 mg 1-14 tablet by ity of tablet 00:00: mouth at [place] 00 bedtime. Medical Branch blood sugar 2020-0 Yes [id number] Use BID, [facility] diagnostic 1-14 DX E11.9 ity o f (BLOOD 00:00: (Brand [place] GLUCOSE 00 upon Medical TEST) strip insurance [facility] formerly [facility] approval) gabapentin 2020-0 Yes [id number] 400mg Take 1 [facility] 400 mg 1-14 capsule by ity of capsule 00:00: mouth 3 [place] 00 (three) Medical times Branch daily. Pioglitazon 2020-0 Yes [id number] 1{tbl} Take 1 [facility] e-Metformin 1-14 tablet by ity of 15-1,000 mg 00:00: mouth 2 [place] [facility] 00 (two) Medical times Branch daily with meals. QUEtiapine 2020-0 Yes [id number] 100mg Take 1 [facility] 100 mg 1-14 tablet by ity of tablet 00:00: mouth at [place] 00 bedtime. Medical Branch SERTraline 2020-0 Yes [id number] 100mg Take 1 [facility] 100 mg 1-14 tablet by ity of tablet 00:00: mouth [place] 00 every Medical morning. Branch tamsulosin 2020-0 Yes [id number] .4mg Take 1 [facility] 0.4 mg 24 1-14 capsule by ity of hr capsule 00:00: mouth [place] 00 daily. Medical Branch traZODone 2020-0 Yes [id number] 50mg Take 1 [facility] [place] 50 mg 1-14 tablet by ity of tablet 00:00: mouth at [place] 00 bedtime. Medical Branch levETIRAcet 2020-0 Yes [id number] 500mg Take 1 [facility] am 500 mg 1-14 tablet by ity o f tablet 00:00: mouth 2 [place] 00 (two) Medical times Branch daily. atorvastati 2020-0 Yes [id number] 80mg Take 1 [facility] n 80 mg 1-14 tablet by ity of tablet 00:00: mouth at [place] 00 bedtime. Medical Branch blood sugar 2020-0 Yes [id number] Use BID, [facility] diagnostic 1-14 DX E11.9 ity o f (BLOOD 00:00: (Brand [place] GLUCOSE 00 upon Medical TEST) strip insurance [facility] formerly [facility] approval) gabapentin 2020-0 Yes [id number] 400mg Take 1 [facility] 400 mg 1-14 capsule by ity of capsule 00:00: mouth 3 [place] 00 (three) Medical times Branch daily. Pioglitazon 2020-0 Yes [id number] 1{tbl} Take 1 [facility] e-Metformin 1-14 tablet by ity of 15-1,000 mg 00:00: mouth 2 [place] [facility] 00 (two) Medical times Branch daily with meals. QUEtiapine 2020-0 Yes [id number] 100mg Take 1 [facility] 100 mg 1-14 tablet by ity of tablet 00:00: mouth at [place] 00 bedtime. Medical Branch SERTraline 2020-0 Yes [id number] 100mg Take 1 [facility] 100 mg 1-14 tablet by ity of tablet 00:00: mouth [place] 00 every Medical morning. Branch tamsulosin 2020-0 Yes [id number] .4mg Take 1 [facility] 0.4 mg 24 1-14 capsule by ity of hr capsule 00:00: mouth [place] 00 daily. Medical Branch traZODone 2020-0 Yes [id number] 50mg Take 1 [facility] [place] 50 mg 1-14 tablet by ity of tablet 00:00: mouth at [place] 00 bedtime. Medical Branch levETIRAcet 2020-0 Yes [id number] 500mg Take 1 [facility] am 500 mg 1-14 tablet by ity o f tablet 00:00: mouth 2 [place] 00 (two) Medical times Branch daily. atorvastati 2020-0 Yes [id number] 80mg Take 1 [facility] n 80 mg 1-14 tablet by ity of tablet 00:00: mouth at [place] 00 bedtime. Medical Branch blood sugar 2020-0 Yes [id number] Use BID, [facility] diagnostic 1-14 DX E11.9 ity o f (BLOOD 00:00: (Brand [place] GLUCOSE 00 upon Medical TEST) strip insurance [facility] formerly [facility] approval) gabapentin 2020-0 Yes [id number] 400mg Take 1 [facility] 400 mg 1-14 capsule by ity of capsule 00:00: mouth 3 [place] 00 (three) Medical times Branch daily. QUEtiapine 2020-0 Yes [id number] 100mg Take 1 [facility] 100 mg 1-14 tablet by ity of tablet 00:00: mouth at [place] 00 bedtime. Medical Branch SERTraline 2020-0 Yes [id number] 100mg Take 1 [facility] 100 mg 1-14 tablet by ity of tablet 00:00: mouth [place] 00 every Medical morning. Branch tamsulosin 2020-0 Yes [id number] .4mg Take 1 [facility] 0.4 mg 24 1-14 capsule by ity of hr capsule 00:00: mouth [place] 00 daily. Medical Branch traZODone 2020-0 Yes [id number] 50mg Take 1 [facility] [place] 50 mg 1-14 tablet by ity of tablet 00:00: mouth at [place] 00 bedtime. Medical Branch levETIRAcet 2020-0 Yes [id number] 500mg Take 1 [facility] am 500 mg 1-14 tablet by ity o f tablet 00:00: mouth 2 00 (two) Medical times Branch daily. atorvastati 2020-0 Yes [id number] 80mg Take 1 [facility] n 80 mg 1-14 tablet by ity of tablet 00:00: mouth at [place] 00 bedtime. Medical Branch blood sugar 2020-0 Yes [id number] Use BID, [facility] diagnostic 1-14 DX E11.9 ity o f (BLOOD 00:00: (Brand [place] GLUCOSE 00 upon Medical TEST) strip insurance [facility] formerly [facility] approval) gabapentin 2020-0 Yes [id number] 400mg Take 1 [facility] 400 mg 1-14 capsule by ity of capsule 00:00: mouth 3 (three) Medical times Branch daily. QUEtiapine 2020-0 Yes [id number] 100mg Take 1 [facility] 100 mg 1-14 tablet by ity of tablet 00:00: mouth at [place] 00 bedtime. Medical Branch SERTraline 2020-0 Yes [id number] 100mg Take 1 [facility] 100 mg 1-14 tablet by ity of tablet 00:00: mouth [place] 00 every Medical morning. Branch tamsulosin 2020-0 Yes [id number] .4mg Take 1 [facility] 0.4 mg 24 1-14 capsule by ity of hr capsule 00:00: mouth 00 daily. Medical Branch traZODone 2020-0 Yes [id number] 50mg Take 1 [facility] [place] 50 mg 1-14 tablet by ity of tablet 00:00: mouth at [place] 00 bedtime. Medical Branch levETIRAcet 2020-0 Yes [id number] 500mg Take 1 [facility] am 500 mg 1-14 tablet by ity o f tablet 00:00: mouth 2 00 (two) Medical times Branch daily. atorvastati 2020-0 Yes [id number] 80mg Take 1 [facility] n 80 mg 1-14 tablet by ity of tablet 00:00: mouth at [place] 00 bedtime. Medical Branch blood sugar 2020-0 Yes [id number] Use BID, [facility] diagnostic 1-14 DX E11.9 ity o f (BLOOD 00:00: (Brand [place] GLUCOSE 00 upon Medical TEST) strip insurance [facility] formerly [facility] approval) gabapentin 2020-0 Yes [id number] 400mg Take 1 [facility] 400 mg 1-14 capsule by ity of capsule 00:00: mouth 3 (three) Medical times Branch daily. QUEtiapine 2020-0 Yes [id number] 100mg Take 1 [facility] 100 mg 1-14 tablet by ity of tablet 00:00: mouth at [place] 00 bedtime. Medical Branch SERTraline 2020-0 Yes [id number] 100mg Take 1 [facility] 100 mg 1-14 tablet by ity of tablet 00:00: mouth [place] 00 every Medical morning. Branch tamsulosin 2020-0 Yes [id number] .4mg Take 1 [facility] 0.4 mg 24 1-14 capsule by ity of hr capsule 00:00: mouth 00 daily. Medical Branch traZODone 2020-0 Yes [id number] 50mg Take 1 [facility] [place] 50 mg 1-14 tablet by ity of tablet 00:00: mouth at [place] 00 bedtime. Medical Branch levETIRAcet 2020-0 Yes [id number] 500mg Take 1 [facility] am 500 mg 1-14 tablet by ity o f tablet 00:00: mouth 2 (two) Medical times Branch daily. atorvastati 2020-0 Yes [id number] 80mg Take 1 [facility] n 80 mg 1-14 tablet by ity of tablet 00:00: mouth at [place] 00 bedtime. Medical Branch blood sugar 2020-0 Yes [id number] Use BID, [facility] diagnostic 1-14 DX E11.9 ity o f (BLOOD 00:00: ([facility] GLUCOSE 00 upon Medical TEST) strip insurance [facility] approval) gabapentin 2020-0 Yes [id number] 400mg Take 1 [facility] 400 mg 1-14 capsule by ity of capsule 00:00: mouth 3 (three) Medical times Branch daily. QUEtiapine 2020-0 Yes [id number] 100mg Take 1 [facility] 100 mg 1-14 tablet by ity of tablet 00:00: mouth at [place] 00 bedtime. Medical Branch SERTraline 2020-0 Yes [id number] 100mg Take 1 [facility] 100 mg 1-14 tablet by ity of tablet 00:00: mouth [place] 00 every Medical morning. Branch tamsulosin 2020-0 Yes [id number] .4mg Take 1 [facility] 0.4 mg 24 1-14 capsule by ity of hr capsule 00:00: mouth [place] 00 daily. Medical Branch traZODone 2020-0 Yes [id number] 50mg Take 1 [facility] [place] 50 mg 1-14 tablet by ity of tablet 00:00: mouth at [place] 00 bedtime. Medical Branch levETIRAcet 2020-0 Yes [id number] 500mg Take 1 [facility] am 500 mg 1-14 tablet by ity o f tablet 00:00: mouth 2 (two) Medical times Branch daily. atorvastati 2020-0 Yes [id number] 80mg Take 1 [facility] n 80 mg 1-14 tablet by ity of tablet 00:00: mouth at [place] 00 bedtime. Medical Branch blood sugar 2020-0 Yes [id number] Use BID, [facility] diagnostic 1-14 DX E11.9 ity o f (BLOOD 00:00: (Brand [place] GLUCOSE 00 upon Medical TEST) strip insurance [facility] formerly [facility] approval) gabapentin 2020-0 Yes [id number] 400mg Take 1 [facility] 400 mg 1-14 capsule by ity of capsule 00:00: mouth 3 [place] (three) Medical times Branch daily. QUEtiapine 2020-0 Yes [id number] 100mg Take 1 [facility] 100 mg 1-14 tablet by ity of tablet 00:00: mouth at [place] 00 bedtime. Medical Branch SERTraline 2020-0 Yes [id number] 100mg Take 1 [facility] 100 mg 1-14 tablet by ity of tablet 00:00: mouth [place] 00 every Medical morning. Branch tamsulosin 2020-0 Yes [id number] .4mg Take 1 [facility] 0.4 mg 24 1-14 capsule by ity of hr capsule 00:00: mouth [place] 00 daily. Medical Branch traZODone 2020-0 Yes [id number] 50mg Take 1 [place] 50 mg 1-14 tablet by ity of tablet 00:00: mouth at [place] 00 bedtime. Medical Branch levETIRAcet 2020-0 Yes [id number] 500mg Take 1 [facility] am 500 mg 1-14 tablet by ity o f tablet 00:00: mouth 2 [place] (two) Medical times Branch daily. atorvastati 2020-0 Yes [id number] 80mg Take 1 [facility] n 80 mg 1-14 tablet by ity of tablet 00:00: mouth at [place] 00 bedtime. Medical Branch blood sugar 2020-0 Yes [id number] Use BID, [facility] diagnostic 1-14 DX E11.9 ity o f (BLOOD 00:00: (Brand [place] GLUCOSE 00 upon Medical TEST) strip insurance [facility] formerly [facility] approval) gabapentin 2020-0 Yes [id number] 400mg Take 1 [facility] 400 mg 1-14 capsule by ity of capsule 00:00: mouth 3 00 (three) Medical times Branch daily. QUEtiapine 2020-0 Yes [id number] 100mg Take 1 [facility] 100 mg 1-14 tablet by ity of tablet 00:00: mouth at [place] 00 bedtime. Medical Branch SERTraline 2020-0 Yes [id number] 100mg Take 1 [facility] 100 mg 1-14 tablet by ity of tablet 00:00: mouth [place] 00 every Medical morning. Branch tamsulosin 2020-0 Yes [id number] .4mg Take 1 [facility] 0.4 mg 24 1-14 capsule by ity of hr capsule 00:00: mouth [place] 00 daily. Medical Branch traZODone 2020-0 Yes [id number] 50mg Take 1 [place] 50 mg 1-14 tablet by ity of tablet 00:00: mouth at [place] 00 bedtime. Medical Branch levETIRAcet 2020-0 Yes [id number] 500mg Take 1 [facility] am 500 mg 1-14 tablet by ity o f tablet 00:00: mouth 2 (two) Medical times Branch daily. atorvastati 2020-0 Yes [id number] 80mg Take 1 [facility] n 80 mg 1-14 tablet by ity of tablet 00:00: mouth at [place] 00 bedtime. Medical Branch blood sugar 2020-0 Yes [id number] Use BID, [facility] diagnostic 1-14 DX E11.9 ity o f (BLOOD 00:00: (Brand [place] GLUCOSE 00 upon Medical TEST) strip insurance [facility] formerly [facility] approval) gabapentin 2020-0 Yes [id number] 400mg Take 1 [facility] 400 mg 1-14 capsule by ity of capsule 00:00: mouth 3 (three) Medical times Branch daily. QUEtiapine 2020-0 Yes [id number] 100mg Take 1 [facility] 100 mg 1-14 tablet by ity of tablet 00:00: mouth at [place] 00 bedtime. Medical Branch SERTraline 2020-0 Yes [id number] 100mg Take 1 [facility] 100 mg 1-14 tablet by ity of tablet 00:00: mouth [place] 00 every Medical morning. Branch tamsulosin 2020-0 Yes [id number] .4mg Take 1 [facility] 0.4 mg 24 1-14 capsule by ity of hr capsule 00:00: mouth [place] 00 daily. Medical Branch traZODone 2020-0 Yes [id number] 50mg Take 1 [facility] [place] 50 mg 1-14 tablet by ity of tablet 00:00: mouth at [place] [address] bedtime. Medical Branch levETIRAcet 2020-0 Yes [id number] 500mg Take 1 [facility] am 500 mg 1-14 tablet by ity o f tablet 00:00: mouth 2 [place] (two) Medical times Branch daily. atorvastati 2020-0 Yes [id number] 80mg Take 1 [facility] n 80 mg 1-14 tablet by ity of tablet 00:00: mouth at [place] 00 bedtime. Medical Branch blood sugar 2020-0 Yes [id number] Use BID, [facility] diagnostic 1-14 DX E11.9 ity o f (BLOOD 00:00: (Brand [place] GLUCOSE 00 upon Medical TEST) strip insurance [facility] formerly [facility] approval) gabapentin 2020-0 Yes [id number] 400mg Take 1 [facility] 400 mg 1-14 capsule by ity of capsule 00:00: mouth 3 [place] (three) Medical times Branch daily. QUEtiapine 2020-0 Yes [id number] 100mg Take 1 [facility] 100 mg 1-14 tablet by ity of tablet 00:00: mouth at [place] 00 bedtime. Medical Branch SERTraline 2020-0 Yes [id number] 100mg Take 1 [facility] 100 mg 1-14 tablet by ity of tablet 00:00: mouth [place] 00 every Medical morning. Branch tamsulosin 2020-0 Yes [id number] .4mg Take 1 [facility] 0.4 mg 24 1-14 capsule by ity of hr capsule 00:00: mouth 00 daily. Medical Branch traZODone 2020-0 Yes [id number] 50mg Take 1 [facility] [place] 50 mg 1-14 tablet by ity of tablet 00:00: mouth at [place] 00 bedtime. Medical Branch levETIRAcet 2020-0 Yes [id number] 500mg Take 1 [facility] am 500 mg 1-14 tablet by ity o f tablet 00:00: mouth 2 [place] (two) Medical times Branch daily. atorvastati 2020-0 Yes [id number] 80mg Take 1 [facility] n 80 mg 1-14 tablet by ity of tablet 00:00: mouth at [place] 00 bedtime. Medical Branch blood sugar 2020-0 Yes [id number] Use BID, [facility] diagnostic 1-14 DX E11.9 ity o f (BLOOD 00:00: (Brand [place] GLUCOSE 00 upon Medical TEST) strip insurance [facility] formerly [facility] approval) gabapentin 2020-0 Yes [id number] 400mg Take 1 [facility] 400 mg 1-14 capsule by ity of capsule 00:00: mouth 3 (three) Medical times Branch daily. QUEtiapine 2020-0 Yes [id number] 100mg Take 1 [facility] 100 mg 1-14 tablet by ity of tablet 00:00: mouth at [place] 00 bedtime. Medical Branch SERTraline 2020-0 Yes [id number] 100mg Take 1 [facility] 100 mg 1-14 tablet by ity of tablet 00:00: mouth [place] 00 every Medical morning. Branch tamsulosin 2020-0 Yes [id number] .4mg Take 1 [facility] 0.4 mg 24 1-14 capsule by ity of hr capsule 00:00: mouth 00 daily. Medical Branch traZODone 2020-0 Yes [id number] 50mg Take 1 [facility] [place] 50 mg 1-14 tablet by ity of tablet 00:00: mouth at [place] 00 bedtime. Medical Branch levETIRAcet 2020-0 Yes [id number] 500mg Take 1 [facility] am 500 mg 1-14 tablet by ity o f tablet 00:00: mouth 2 (two) Medical times Branch daily. atorvastati 2020-0 Yes [id number] 80mg Take 1 [facility] n 80 mg 1-14 tablet by ity of tablet 00:00: mouth at [place] 00 bedtime. Medical Branch blood sugar 2020-0 Yes [id number] Use BID, [facility] diagnostic 1-14 DX E11.9 ity o f (BLOOD 00:00: (Brand [place] GLUCOSE 00 upon Medical TEST) strip insurance [facility] formerly [facility] approval) gabapentin 2020-0 Yes [id number] 400mg Take 1 [facility] 400 mg 1-14 capsule by ity of capsule 00:00: mouth 3 (three) Medical times Branch daily. QUEtiapine 2020-0 Yes [id number] 100mg Take 1 [facility] 100 mg 1-14 tablet by ity of tablet 00:00: mouth at [place] 00 bedtime. Medical Branch SERTraline 2020-0 Yes [id number] 100mg Take 1 [facility] 100 mg 1-14 tablet by ity of tablet 00:00: mouth [place] 00 every Medical morning. Branch tamsulosin 2020-0 Yes [id number] .4mg Take 1 [facility] 0.4 mg 24 1-14 capsule by ity of hr capsule 00:00: mouth [place] 00 daily. Medical Branch traZODone 2020-0 Yes [id number] 50mg Take 1 [facility] [place] 50 mg 1-14 tablet by ity of tablet 00:00: mouth at [place] 00 bedtime. Medical Branch levETIRAcet 2020-0 Yes [id number] 500mg Take 1 [facility] am 500 mg 1-14 tablet by ity o f tablet 00:00: mouth 2 (two) Medical times Branch daily. atorvastati 2020-0 Yes [id number] 80mg Take 1 [facility] n 80 mg 1-14 tablet by ity of tablet 00:00: mouth at [place] 00 bedtime. Medical Branch blood sugar 2020-0 Yes [id number] Use BID, [facility] diagnostic 1-14 DX E11.9 ity o f (BLOOD 00:00: (Brand [place] GLUCOSE 00 upon Medical TEST) strip insurance [facility] formerly [facility] approval) gabapentin 2020-0 Yes [id number] 400mg Take 1 [facility] 400 mg 1-14 capsule by ity of capsule 00:00: mouth 3 [place] (three) Medical times Branch daily. QUEtiapine 2020-0 Yes [id number] 100mg Take 1 [facility] 100 mg 1-14 tablet by ity of tablet 00:00: mouth at [place] 00 bedtime. Medical Branch SERTraline 2020-0 Yes [id number] 100mg Take 1 [facility] 100 mg 1-14 tablet by ity of tablet 00:00: mouth [place] 00 every Medical morning. Branch tamsulosin 2020-0 Yes [id number] .4mg Take 1 [facility] 0.4 mg 24 1-14 capsule by ity of hr capsule 00:00: mouth [place] 00 daily. Medical Branch traZODone 2020-0 Yes [id number] 50mg Take 1 [facility] [place] 50 mg 1-14 tablet by ity of tablet 00:00: mouth at [place] 00 bedtime. Medical Branch levETIRAcet 2020-0 Yes [id number] 500mg Take 1 [facility] am 500 mg 1-14 tablet by ity o f tablet 00:00: mouth 2 [place] (two) Medical times Branch daily. atorvastati 2020-0 Yes [id number] 80mg Take 1 [facility] n 80 mg 1-14 tablet by ity of tablet 00:00: mouth at [place] 00 bedtime. Medical Branch blood sugar 2020-0 Yes [id number] Use BID, [facility] diagnostic 1-14 DX E11.9 ity o f (BLOOD 00:00: (Brand [place] GLUCOSE 00 upon Medical TEST) strip insurance Bra formerly [facility] approval) gabapentin 2020-0 Yes [id number] 400mg Take 1 [facility] 400 mg 1-14 capsule by ity of capsule 00:00: mouth 3 (three) Medical times Branch daily. QUEtiapine 2020-0 Yes [id number] 100mg Take 1 [facility] 100 mg 1-14 tablet by ity of tablet 00:00: mouth at [place] 00 bedtime. Medical Branch SERTraline 2020-0 Yes [id number] 100mg Take 1 [facility] 100 mg 1-14 tablet by ity of tablet 00:00: mouth [place] 00 every Medical morning. Branch tamsulosin 2020-0 Yes [id number] .4mg Take 1 [facility] 0.4 mg 24 1-14 capsule by ity of hr capsule 00:00: mouth daily. Medical Branch traZODone 2020-0 Yes [id number] 50mg Take 1 Un [place] 50 mg 1-14 tablet by ity of tablet 00:00: mouth at [place] 00 bedtime. Medical Branch levETIRAcet 2020-0 Yes [id number] 500mg Take 1 [facility] am 500 mg 1-14 tablet by ity o f tablet 00:00: mouth 2 (two) Medical times Branch daily. atorvastati 2020-0 Yes [id number] 80mg Take 1 [facility] n 80 mg 1-14 tablet by ity of tablet 00:00: mouth at [place] 00 bedtime. Medical Branch blood sugar 2020-0 Yes [id number] Use BID, [facility] diagnostic 1-14 DX E11.9 ity o f (BLOOD 00:00: (Brand [place] GLUCOSE 00 upon Medical TEST) strip insurance Bra formerly [facility] approval) gabapentin 2020-0 Yes [id number] 400mg Take 1 [facility] 400 mg 1-14 capsule by ity of capsule 00:00: mouth 3 (three) Medical times Branch daily. QUEtiapine 2020-0 Yes [id number] 100mg Take 1 [facility] 100 mg 1-14 tablet by ity of tablet 00:00: mouth at [place] 00 bedtime. Medical Branch SERTraline 2020-0 Yes [id number] 100mg Take 1 [facility] 100 mg 1-14 tablet by ity of tablet 00:00: mouth [place] 00 every Medical morning. Branch tamsulosin 2020-0 Yes [id number] .4mg Take 1 [facility] 0.4 mg 24 1-14 capsule by ity of hr capsule 00:00: mouth [place] 00 daily. Medical Branch traZODone 2020-0 Yes [id number] 50mg Take 1 Un [place] 50 mg 1-14 tablet by ity of tablet 00:00: mouth at [place] 00 bedtime. Medical Branch levETIRAcet 2020-0 Yes [id number] 500mg Take 1 [facility] am 500 mg 1-14 tablet by ity o f tablet 00:00: mouth 2 (two) Medical times Branch daily. atorvastati 2020-0 Yes [id number] 80mg Take 1 [facility] n 80 mg 1-14 tablet by ity of tablet 00:00: mouth at [place] 00 bedtime. Medical Branch blood sugar 2020-0 Yes [id number] Use BID, [facility] diagnostic 1-14 DX E11.9 ity o f (BLOOD 00:00: (Brand [place] GLUCOSE 00 upon Medical TEST) strip insurance Bra formerly [facility] approval) gabapentin 2020-0 Yes [id number] 400mg Take 1 [facility] 400 mg 1-14 capsule by ity of capsule 00:00: mouth 3 (three) Medical times Branch daily. QUEtiapine 2020-0 Yes [id number] 100mg Take 1 [facility] 100 mg 1-14 tablet by ity of tablet 00:00: mouth at [place] 00 bedtime. Medical Branch SERTraline 2020-0 Yes [id number] 100mg Take 1 [facility] 100 mg 1-14 tablet by ity of tablet 00:00: mouth [place] 00 every Medical morning. Branch tamsulosin 2020-0 Yes [id number] .4mg Take 1 [facility] 0.4 mg 24 1-14 capsule by ity of hr capsule 00:00: mouth [place] 00 daily. Medical Branch traZODone 2020-0 Yes [id number] 50mg Take 1 Un [place] 50 mg 1-14 tablet by ity of tablet 00:00: mouth at [place] 00 bedtime. Medical Branch levETIRAcet 2020-0 Yes [id number] 500mg Take 1 [facility] am 500 mg 1-14 tablet by ity o f tablet 00:00: mouth 2 [place] 00 (two) Medical times Branch daily. atorvastati 2020-0 Yes [id number] 80mg Take 1 [facility] n 80 mg 1-14 tablet by ity of tablet 00:00: mouth at [place] 00 bedtime. Medical Branch blood sugar 2020-0 Yes [id number] Use BID, [facility] diagnostic 1-14 DX E11.9 ity o f (BLOOD 00:00: (Brand [place] GLUCOSE 00 upon Medical TEST) strip insurance Bra formerly [facility] approval) gabapentin 2020-0 Yes [id number] 400mg Take 1 [facility] 400 mg 1-14 capsule by ity of capsule 00:00: mouth 3 (three) Medical times Branch daily. QUEtiapine 2020-0 Yes [id number] 100mg Take 1 [facility] 100 mg 1-14 tablet by ity of tablet 00:00: mouth at [place] 00 bedtime. Medical Branch SERTraline 2020-0 Yes [id number] 100mg Take 1 [facility] 100 mg 1-14 tablet by ity of tablet 00:00: mouth [place] 00 every Medical morning. Branch tamsulosin 2020-0 Yes [id number] .4mg Take 1 [facility] 0.4 mg 24 1-14 capsule by ity of hr capsule 00:00: mouth daily. Medical Branch traZODone 2020-0 Yes [id number] 50mg Take 1 Un [place] 50 mg 1-14 tablet by ity of tablet 00:00: mouth at [place] 00 bedtime. Medical Branch levETIRAcet 2020-0 Yes [id number] 500mg Take 1 [facility] am 500 mg 1-14 tablet by ity o f tablet 00:00: mouth 2 (two) Medical times Branch daily. atorvastati 2020-0 Yes [id number] 80mg Take 1 [facility] n 80 mg 1-14 tablet by ity of tablet 00:00: mouth at [place] 00 bedtime. Medical Branch blood sugar 2020-0 Yes [id number] Use BID, [facility] diagnostic 1-14 DX E11.9 ity o f (BLOOD 00:00: (Brand [place] GLUCOSE 00 upon Medical TEST) strip insurance Bra formerly [facility] approval) gabapentin 2020-0 Yes [id number] 400mg Take 1 [facility] 400 mg 1-14 capsule by ity of capsule 00:00: mouth 3 (three) Medical times Branch daily. QUEtiapine 2020-0 Yes [id number] 100mg Take 1 [facility] 100 mg 1-14 tablet by ity of tablet 00:00: mouth at [place] 00 bedtime. Medical Branch SERTraline 2020-0 Yes [id number] 100mg Take 1 [facility] 100 mg 1-14 tablet by ity of tablet 00:00: mouth [place] 00 every Medical morning. Branch tamsulosin 2020-0 Yes [id number] .4mg Take 1 [facility] 0.4 mg 24 1-14 capsule by ity of hr capsule 00:00: mouth [place] 00 daily. Medical Branch traZODone 2020-0 Yes [id number] 50mg Take 1 Un [place] 50 mg 1-14 tablet by ity of tablet 00:00: mouth at [place] 00 bedtime. Medical Branch levETIRAcet 2020-0 Yes [id number] 500mg Take 1 [facility] am 500 mg 1-14 tablet by ity o f tablet 00:00: mouth 2 (two) Medical times Branch daily. atorvastati 2020-0 Yes [id number] 80mg Take 1 [facility] n 80 mg 1-14 tablet by ity of tablet 00:00: mouth at [place] [address] bedtime. Medical Branch blood sugar 2020-0 Yes [id number] Use BID, [facility] diagnostic 1-14 DX E11.9 ity o f (BLOOD 00:00: (Brand [place] GLUCOSE 00 upon Medical TEST) strip insurance Bra formerly [facility] approval) gabapentin 2020-0 Yes [id number] 400mg Take 1 [facility] 400 mg 1-14 capsule by ity of capsule 00:00: mouth 3 (three) Medical times Branch daily. QUEtiapine 2020-0 Yes [id number] 100mg Take 1 [facility] 100 mg 1-14 tablet by ity of tablet 00:00: mouth at [place] 00 bedtime. Medical Branch SERTraline 2020-0 Yes [id number] 100mg Take 1 [facility] 100 mg 1-14 tablet by ity of tablet 00:00: mouth [place] 00 every Medical morning. Branch tamsulosin 2020-0 Yes [id number] .4mg Take 1 [facility] 0.4 mg 24 1-14 capsule by ity of hr capsule 00:00: mouth [place] 00 daily. Medical Branch traZODone 2020-0 Yes [id number] 50mg Take 1 Un [place] 50 mg 1-14 tablet by ity of tablet 00:00: mouth at [place] [address] bedtime. Medical Branch levETIRAcet 2020-0 Yes [id number] 500mg Take 1 [facility] am 500 mg 1-14 tablet by ity o f tablet 00:00: mouth 2 00 (two) Medical times Branch daily. atorvastati 2020-0 Yes [id number] 80mg Take 1 [facility] n 80 mg 1-14 tablet by ity of tablet 00:00: mouth at [place] 00 bedtime. Medical Branch blood sugar 2020-0 Yes [id number] Use BID, [facility] diagnostic 1-14 DX E11.9 ity o f (BLOOD 00:00: (Brand [place] GLUCOSE 00 upon Medical TEST) strip insurance Bra formerly [facility] approval) gabapentin 2020-0 Yes [id number] 400mg Take 1 [facility] 400 mg 1-14 capsule by ity of capsule 00:00: mouth 3 (three) Medical times Branch daily. QUEtiapine 2020-0 Yes [id number] 100mg Take 1 [facility] 100 mg 1-14 tablet by ity of tablet 00:00: mouth at [place] 00 bedtime. Medical Branch SERTraline 2020-0 Yes [id number] 100mg Take 1 [facility] 100 mg 1-14 tablet by ity of tablet 00:00: mouth [place] 00 every Medical morning. Branch tamsulosin 2020-0 Yes [id number] .4mg Take 1 [facility] 0.4 mg 24 1-14 capsule by ity of hr capsule 00:00: mouth [place] 00 daily. Medical Branch traZODone 2020-0 Yes [id number] 50mg Take 1 Un [place] 50 mg 1-14 tablet by ity of tablet 00:00: mouth at [place] 00 bedtime. Medical Branch levETIRAcet 2020-0 Yes [id number] 500mg Take 1 [facility] am 500 mg 1-14 tablet by ity o f tablet 00:00: mouth 2 (two) Medical times Branch daily. atorvastati 2020-0 Yes [id number] 80mg Take 1 [facility] n 80 mg 1-14 tablet by ity of tablet 00:00: mouth at [place] 00 bedtime. Medical Branch blood sugar 2020-0 Yes [id number] Use BID, [facility] diagnostic 1-14 DX E11.9 ity o f (BLOOD 00:00: (Brand [place] GLUCOSE 00 upon Medical TEST) strip insurance Bra formerly [facility] approval) gabapentin 2020-0 Yes [id number] 400mg Take 1 [facility] 400 mg 1-14 capsule by ity of capsule 00:00: mouth 3 (three) Medical times Branch daily. QUEtiapine 2020-0 Yes [id number] 100mg Take 1 [facility] 100 mg 1-14 tablet by ity of tablet 00:00: mouth at [place] 00 bedtime. Medical Branch SERTraline 2020-0 Yes [id number] 100mg Take 1 [facility] 100 mg 1-14 tablet by ity of tablet 00:00: mouth [place] 00 every Medical morning. Branch tamsulosin 2020-0 Yes [id number] .4mg Take 1 [facility] 0.4 mg 24 1-14 capsule by ity of hr capsule 00:00: mouth [place] 00 daily. Medical Branch traZODone 2020-0 Yes [id number] 50mg Take 1 Un [place] 50 mg 1-14 tablet by ity of tablet 00:00: mouth at [place] 00 bedtime. Medical Branch levETIRAcet 2020-0 Yes [id number] 500mg Take 1 [facility] am 500 mg 1-14 tablet by ity o f tablet 00:00: mouth 2 00 (two) Medical times Branch daily. atorvastati 2020-0 Yes [id number] 80mg Take 1 [facility] n 80 mg 1-14 tablet by ity of tablet 00:00: mouth at [place] 00 bedtime. Medical Branch blood sugar 2020-0 Yes [id number] Use BID, [facility] diagnostic 1-14 DX E11.9 ity o f (BLOOD 00:00: (Brand [place] GLUCOSE 00 upon Medical TEST) strip insurance Bra formerly [facility] approval) gabapentin 2020-0 Yes [id number] 400mg Take 1 [facility] 400 mg 1-14 capsule by ity of capsule 00:00: mouth 3 00 (three) Medical times Branch daily. QUEtiapine 2020-0 Yes [id number] 100mg Take 1 [facility] 100 mg 1-14 tablet by ity of tablet 00:00: mouth at [place] 00 bedtime. Medical Branch SERTraline 2020-0 Yes [id number] 100mg Take 1 [facility] 100 mg 1-14 tablet by ity of tablet 00:00: mouth [place] 00 every Medical morning. Branch tamsulosin 2020-0 Yes [id number] .4mg Take 1 [facility] 0.4 mg 24 1-14 capsule by ity of hr capsule 00:00: mouth [place] 00 daily. Medical Branch traZODone 2020-0 Yes [id number] 50mg Take 1 Un [place] 50 mg 1-14 tablet by ity of tablet 00:00: mouth at [place] [address] bedtime. Medical Branch levETIRAcet 2020-0 Yes [id number] 500mg Take 1 [facility] am 500 mg 1-14 tablet by ity o f tablet 00:00: mouth 2 00 (two) Medical times Branch daily. atorvastati 2020-0 Yes [id number] 80mg Take 1 [facility] n 80 mg 1-14 tablet by ity of tablet 00:00: mouth at [place] 00 bedtime. Medical Branch blood sugar 2020-0 Yes [id number] Use BID, [facility] diagnostic 1-14 DX E11.9 ity o f (BLOOD 00:00: (Brand [place] GLUCOSE 00 upon Medical TEST) strip insurance Bra formerly [facility] approval) gabapentin 2020-0 Yes [id number] 400mg Take 1 [facility] 400 mg 1-14 capsule by ity of capsule 00:00: mouth 3 (three) Medical times Branch daily. QUEtiapine 2020-0 Yes [id number] 100mg Take 1 [facility] 100 mg 1-14 tablet by ity of tablet 00:00: mouth at [place] 00 bedtime. Medical Branch SERTraline 2020-0 Yes [id number] 100mg Take 1 [facility] 100 mg 1-14 tablet by ity of tablet 00:00: mouth [place] 00 every Medical morning. Branch tamsulosin 2020-0 Yes [id number] .4mg Take 1 [facility] 0.4 mg 24 1-14 capsule by ity of hr capsule 00:00: mouth [place] 00 daily. Medical Branch traZODone 2020-0 Yes [id number] 50mg Take 1 Un [place] 50 mg 1-14 tablet by ity of tablet 00:00: mouth at [place] 00 bedtime. Medical Branch levETIRAcet 2020-0 Yes [id number] 500mg Take 1 [facility] am 500 mg 1-14 tablet by ity o f tablet 00:00: mouth 2 00 (two) Medical times Branch daily. atorvastati 2020-0 Yes [id number] 80mg Take 1 [facility] n 80 mg 1-14 tablet by ity of tablet 00:00: mouth at [place] 00 bedtime. Medical Branch blood sugar 2020-0 Yes [id number] Use BID, [facility] diagnostic 1-14 DX E11.9 ity o f (BLOOD 00:00: (Brand [place] GLUCOSE 00 upon Medical TEST) strip insurance Bra formerly [facility] approval) gabapentin 2020-0 Yes [id number] 400mg Take 1 [facility] 400 mg 1-14 capsule by ity of capsule 00:00: mouth 3 (three) Medical times Branch daily. QUEtiapine 2020-0 Yes [id number] 100mg Take 1 [facility] 100 mg 1-14 tablet by ity of tablet 00:00: mouth at [place] [address] bedtime. Medical Branch SERTraline 2020-0 Yes [id number] 100mg Take 1 [facility] 100 mg 1-14 tablet by ity of tablet 00:00: mouth [place] 00 every Medical morning. Branch tamsulosin 2020-0 Yes [id number] .4mg Take 1 [facility] 0.4 mg 24 1-14 capsule by ity of hr capsule 00:00: mouth [place] 00 daily. Medical Branch traZODone 2020-0 Yes [id number] 50mg Take 1 Un [place] 50 mg 1-14 tablet by ity of tablet 00:00: mouth at [place] [address] bedtime. Medical Branch levETIRAcet 2020-0 Yes [id number] 500mg Take 1 [facility] am 500 mg 1-14 tablet by ity o f tablet 00:00: mouth 2 [place] (two) Medical times Branch daily. atorvastati 2020-0 Yes [id number] 80mg Take 1 [facility] n 80 mg 1-14 tablet by ity of tablet 00:00: mouth at [place] [address] bedtime. Medical Branch blood sugar 2020-0 Yes [id number] Use BID, [facility] diagnostic 1-14 DX E11.9 ity o f (BLOOD 00:00: (Brand [place] GLUCOSE 00 upon Medical TEST) strip insurance Bra formerly [facility] approval) gabapentin 2020-0 Yes [id number] 400mg Take 1 [facility] 400 mg 1-14 capsule by ity of capsule 00:00: mouth 3 [place] (three) Medical times Branch daily. QUEtiapine 2020-0 Yes [id number] 100mg Take 1 [facility] 100 mg 1-14 tablet by ity of tablet 00:00: mouth at [place] [address] bedtime. Medical Branch SERTraline 2020-0 Yes [id number] 100mg Take 1 [facility] 100 mg 1-14 tablet by ity of tablet 00:00: mouth [place] 00 every Medical morning. Branch tamsulosin 2020-0 Yes [id number] .4mg Take 1 [facility] 0.4 mg 24 1-14 capsule by ity of hr capsule 00:00: mouth [place] 00 daily. Medical Branch traZODone 2020-0 Yes [id number] 50mg Take 1 Un [place] 50 mg 1-14 tablet by ity of tablet 00:00: mouth at [place] 00 bedtime. Medical Branch levETIRAcet 2020-0 Yes [id number] 500mg Take 1 [facility] am 500 mg 1-14 tablet by ity o f tablet 00:00: mouth 2 (two) Medical times Branch daily. atorvastati 2020-0 Yes [id number] 80mg Take 1 [facility] n 80 mg 1-14 tablet by ity of tablet 00:00: mouth at [place] 00 bedtime. Medical Branch blood sugar 2020-0 Yes [id number] Use BID, [facility] diagnostic 1-14 DX E11.9 ity o f (BLOOD 00:00: (Brand [place] GLUCOSE 00 upon Medical TEST) strip insurance Bra formerly [facility] approval) gabapentin 2020-0 Yes [id number] 400mg Take 1 [facility] 400 mg 1-14 capsule by ity of capsule 00:00: mouth 3 (three) Medical times Branch daily. QUEtiapine 2020-0 Yes [id number] 100mg Take 1 [facility] 100 mg 1-14 tablet by ity of tablet 00:00: mouth at [place] 00 bedtime. Medical Branch SERTraline 2020-0 Yes [id number] 100mg Take 1 [facility] 100 mg 1-14 tablet by ity of tablet 00:00: mouth [place] 00 every Medical morning. Branch tamsulosin 2020-0 Yes [id number] .4mg Take 1 [facility] 0.4 mg 24 1-14 capsule by ity of hr capsule 00:00: mouth 00 daily. Medical Branch traZODone 2020-0 Yes [id number] 50mg Take 1 Un [place] 50 mg 1-14 tablet by ity of tablet 00:00: mouth at [place] 00 bedtime. Medical Branch levETIRAcet 2020-0 Yes [id number] 500mg Take 1 [facility] am 500 mg 1-14 tablet by ity o f tablet 00:00: mouth 2 (two) Medical times Branch daily. atorvastati 2020-0 Yes [id number] 80mg Take 1 [facility] n 80 mg 1-14 tablet by ity of tablet 00:00: mouth at [place] 00 bedtime. Medical Branch blood sugar 2020-0 Yes [id number] Use BID, [facility] diagnostic 1-14 DX E11.9 ity o f (BLOOD 00:00: (Brand [place] GLUCOSE 00 upon Medical TEST) strip insurance Bra formerly [facility] approval) gabapentin 2020-0 Yes [id number] 400mg Take 1 [facility] 400 mg 1-14 capsule by ity of capsule 00:00: mouth 3 00 (three) Medical times Branch daily. QUEtiapine 2020-0 Yes [id number] 100mg Take 1 [facility] 100 mg 1-14 tablet by ity of tablet 00:00: mouth at [place] 00 bedtime. Medical Branch SERTraline 2020-0 Yes [id number] 100mg Take 1 [facility] 100 mg 1-14 tablet by ity of tablet 00:00: mouth [place] 00 every Medical morning. Branch tamsulosin 2020-0 Yes [id number] .4mg Take 1 [facility] 0.4 mg 24 1-14 capsule by ity of hr capsule 00:00: mouth [place] 00 daily. Medical Branch traZODone 2020-0 Yes [id number] 50mg Take 1 Un [place] 50 mg 1-14 tablet by ity of tablet 00:00: mouth at [place] 00 bedtime. Medical Branch levETIRAcet 2020-0 Yes [id number] 500mg Take 1 [facility] am 500 mg 1-14 tablet by ity o f tablet 00:00: mouth 2 [place] (two) Medical times Branch daily. atorvastati 2020-0 Yes [id number] 80mg Take 1 [facility] n 80 mg 1-14 tablet by ity of tablet 00:00: mouth at [place] 00 bedtime. Medical Branch blood sugar 2020-0 Yes [id number] Use BID, [facility] diagnostic 1-14 DX E11.9 ity o f (BLOOD 00:00: (Brand [place] GLUCOSE 00 upon Medical TEST) strip insurance Bra formerly [facility] approval) gabapentin 2020-0 Yes [id number] 400mg Take 1 [facility] 400 mg 1-14 capsule by ity of capsule 00:00: mouth 3 [place] 00 (three) Medical times Branch daily. QUEtiapine 2020-0 Yes [id number] 100mg Take 1 [facility] 100 mg 1-14 tablet by ity of tablet 00:00: mouth at [place] 00 bedtime. Medical Branch SERTraline 2020-0 Yes [id number] 100mg Take 1 [facility] 100 mg 1-14 tablet by ity of tablet 00:00: mouth [place] 00 every Medical morning. Branch tamsulosin 2020-0 Yes [id number] .4mg Take 1 [facility] 0.4 mg 24 1-14 capsule by ity of hr capsule 00:00: mouth [place] 00 daily. Medical Branch traZODone 2020-0 Yes [id number] 50mg Take 1 [facility] [place] 50 mg 1-14 tablet by ity of tablet 00:00: mouth at [place] [address] bedtime. Medical Branch levETIRAcet 2020-0 Yes [id number] 500mg Take 1 [facility] am 500 mg 1-14 tablet by ity o f tablet 00:00: mouth 2 [place] 00 (two) Medical times Branch daily. atorvastati 2020-0 Yes [id number] 80mg Take 1 [facility] n 80 mg 1-14 tablet by ity of tablet 00:00: mouth at [place] 00 bedtime. Medical Branch blood sugar 2020-0 Yes [id number] Use BID, [facility] diagnostic 1-14 DX E11.9 ity o f (BLOOD 00:00: (Brand [place] GLUCOSE 00 upon Medical TEST) strip insurance Bra formerly [facility] approval) gabapentin 2020-0 Yes [id number] 400mg Take 1 [facility] 400 mg 1-14 capsule by ity of capsule 00:00: mouth 3 [place] 00 (three) Medical times Branch daily. QUEtiapine 2020-0 Yes [id number] 100mg Take 1 [facility] 100 mg 1-14 tablet by ity of tablet 00:00: mouth at [place] [address] bedtime. Medical Branch SERTraline 2020-0 Yes [id number] 100mg Take 1 [facility] 100 mg 1-14 tablet by ity of tablet 00:00: mouth [place] 00 every Medical morning. Branch tamsulosin 2020-0 Yes [id number] .4mg Take 1 [facility] 0.4 mg 24 1-14 capsule by ity of hr capsule 00:00: mouth [place] 00 daily. Medical Branch traZODone 2020-0 Yes [id number] 50mg Take 1 Un [place] 50 mg 1-14 tablet by ity of tablet 00:00: mouth at [place] [address] bedtime. Medical Branch Pioglitazon 2019-0 2020- No [id number] 1{tbl} Take 1 [facility] e-Metformin 1-14 03-05 tablet by it y of 15-1,000 mg 00:00: 00:00 mouth 2 [place] TM24 00 :00 (two) Medical times Branch daily with meals. Pioglitazon 2019-0 2020- No [id number] 1{tbl} Take 1 [facility] e-Metformin 1-14 03-05 tablet by it y of 15-1,000 mg 00:00: 00:00 mouth 2 [place] TM24 00 :00 (two) Medical times Branch daily with meals. gabapentin 2018-03 Yes 100 mg = 1 M emoria 100 MG Oral 2-05 cap, PO, l Capsule 05:00: BID, # 180 Herm shel[place] 00 cap, 0 Refill(s), Pharmacy: [id number] Levetiracet 2018-03 Yes 500 mg = 1 Memoria am 500 MG 2-05 tab, PO, l Oral Tablet 05:00: Q12H, # Her adams 00 180 tab, 0 Refill(s), Pharmacy: [facility] #[id number] sertraline 2018-03 Yes 100 mg = 2 M emoria 50 mg oral 2-05 tab, PO, l tablet 05:00: Daily, # [place] 00 180 tab, 0 Refill(s), Pharmacy: [facility] #[id number] tamsulosin 2018-03 Yes 0.4 mg = 1 M emoria 0.4 mg oral 2-05 cap, PO, l capsule 05:00: Daily, # Mauricio n 00 90 cap, 0 Refill(s), Pharmacy: [facility] #[id number] Aspirin 81 2018-03 Yes 81 mg = 1 Me moria MG Enteric 2-05 tab, PO, l Coated 05:00: Daily, # Mobile Tablet 00 90 tab, 0 Refill(s), Pharmacy: [facility] #[id number] atorvastati 2018-03 Yes 80 mg = 1 M emoria n 80 mg 2-05 tab, PO, l oral tablet 05:00: Bedtime, # [place] 00 90 tab, 0 Refill(s), Pharmacy: [facility] #[id number] baclofen 20 2018-03 Yes 20 mg = 1 M emoria mg oral 2-05 tab, PO, l tablet 05:00: Q6H, # 360 Chiquita nn 00 tab, 0 Refill(s), Pharmacy: [facility] #[id number] Docusate 2018-03 Yes 100 mg = 1 Mem oria Sodium 100 2-05 cap, PO, l MG Oral 05:00: BID, # 180 Herm shelton Capsule 00 cap, 0 Refill(s), Pharmacy: [facility] #[id number] lisinopril 2018-03 Yes 5 mg = 1 Mem oria 5 mg oral 2-05 tab, PO, l tablet 05:00: Bedtime, # Chiquita nn 00 90 tab, 0 Refill(s), Pharmacy: [facility] #[id number] melatonin 3 2018-03 Yes 6 mg = 2 Me moria mg oral 2-05 tab, PO, l tablet 05:00: Bedtime, X Chiquita nn 00 90 day, # 180 tab, 0 Refill(s), Pharmacy: [facility] #[id number] Metformin 2018-03 Yes 500 mg = 1 Me moria hydrochlori 2-05 tab, PO, l de 500 MG 05:00: BID-Meals, He rmann Oral Tablet 00 # 180 tab, 0 Refill(s), Pharmacy: [facility] #[id number] [facility], 2018-03 Yes 8.6 mg = 1 Memoria [facility] 8.6 MG 2-05 tab, PO, l Oral Tablet 05:00: QNoon, X He rmann 90 day, # 90 tab, 0 Refill(s), Pharmacy: [facility] #[id number] Trazodone 2018-03 Yes 50 mg = 1 Mem oria Hydrochlori 2-05 tab, PO, l de 50 MG 05:00: Bedtime, # Her adams Oral Tablet 00 90 tab, 0 Refill(s), Pharmacy: [facility] #[id number] phenol 6% 2018-03 No Notes: Memori a AQ in water 04-21 WASTE: F/P l for 02:00: - Black; E Mobile injection 00 [facility] Melatonin 2018-03 No Notes: Memori a - (Same as: l 03:00: Melatonin) Mobile [facility], 2018-03 No Notes: [place] [facility] 8.6 MG - (Same as: l Oral Tablet 18:00: Senokot) [facility] Tylenol 2018-03 No Notes: Do Memor ia - not exceed l 19:42: 4 gm/day. Mobile (Same as: Tylenol) Aspirin 81 2018-03 No Notes: Do Me moria MG Enteric 24 not crush l Coated 14:30: or chew. Mobile Tablet (Same As: Ecotrin) atorvastati 2018-03 No Notes: [place] n -24 (Same as: l 03:00: Lipitor) Demar 00 Lisinopril 2018-03 No Notes: Memor ia 24 (Same as: l 03:00: Prinivil, Mobile Zestril) Metformin 2018-03 No Notes: Memori a 04-10 (Same as: l 23:00: Glucophage Demar 00 ) Take with meal vancomycin 2018-03 No 2001 mg: Me moria + Sodium - infuse l Chloride 22:00: over 2.5 Chiquita nn 0.9% IV 250 00 hours For mL adult patients only: Round to nearest 250 mg per Medical Staff approval gabapentin 2018-03 No Notes: Memor ia 100 MG Oral 04-10 (Same as: l Capsule 14:30: Neurontin) Herm shelton Sertraline 2018-03 No Notes: Memor ia 04-10 (Same as: l 14:30: Zoloft) Mobile 00 tamsulosin 2018-03 No Notes: Memor ia 04-10 (Same As: l 14:30: Flomax) Demar "Do Not Crush" Docusate 2018-03 No Notes: Memoria Sodium 100 - (Same as: l MG Oral 14:30: Colace) Demar Capsule 00 (Do Not Crush) sennosides, 2018-03 No Notes: [place] [facility] 8.6 MG 04-10 (Same as: l Oral Tablet 14:30: Senokot) He rm Vancomycin 2018-03 No 2001 mg: Me moria - infuse l 06:00: over 2.5 Demar 00 hours For adult patients only: Round to nearest 250 mg per Medical Staff approval Baclofen 2018-03 No Notes: Memoria - (Same As: l 06:00: Lioresal) Demar heparin 2018-03 No Notes: Memoria -23 porcine l 06:00: heparin Demar cefepime 2018-03 No Notes: Memoria -23 (Same as: l 05:00: Maxipime) Mobile 00 MEDICATION WASTE Product Size: 2000 mg Product Wasted: __0_ mg Levetiracet 2018-03 No Notes: Tom [place] am 500 MG - (Same l Oral Tablet 05:00: as:Keppra) Demar 00 Trazodone 2018-03 No Notes: Memori a Hydrochlori 04-10 (Same As: l de 50 MG 05:00: Desyrel) Chiquita nn Oral Tablet Metronidazo 2018-03 No Notes: Tom [place] le 04-10 (Same as: l 04:00: Flagyl) Avoid alcohol. Albuterol 2018-03 No Notes: Memori a 0.833 MG/ML 04-10 (Same as: l / 03:35: Duoneb) Ipratropium 00 [place] 0.167 MG/ML Inhalant Solution Milk of 2018-03 No Notes: Memoria Magnesia 04-10 (Same as: l 03:33: Milk of Magnesia, MOM) Bisacodyl 2018-03 No Notes: Memori a 04-10 (Same As: l 03:33: Dulcolax, Bisco-Lax) Saline 2018-03 No Notes: Memoria Flush 0.9% 04-10 (Same as: l 03:33: BD Posiflush) Midazolam 2018-03 No Notes: Memori a 04-10 (Same l 03:33: as:Versed) Levetiracet 2018-03 No Notes: Otm [place] am 04-10 Same as l 03:33: Keppra Mix with 100 mL NS, LR or D5W MEDICATION WASTE Product Size: 500 mg Product Wasted: _0__ mg metroNIDAZO 2018-03 Yes 500 mg = Me moria LE 04-09 100 mL, l intravenous 23:32: IVPB, Chiquita nn solution 00 ABXQ8H, 0 Refill(s) vancomycin 2018-03 Yes 1.5 gm = Mem oria 1.5 g/250 04-09 250 mL, l mL-NaCl 23:32: IVPB, Mobile 0.9% 00 ABXQ8H, 0 intravenous Refill(s) solution cefepime 2 2018-03 Yes 2 gm, IV, Me moria g injection 04-09 Q8H, X 10 l 23:32: day, # 30 Mobile 00 ea, 0 Refill(s), other Trazodone 2018-03 No Notes: Memori a 1-21 (Same As: l 03:00: Desyrel) Albuterol 2018-03 No Notes: SEE Me moria 0.83 MG/ML -21 RT l Inhalant 01:00: DOCUMENTAT Her adams Solution ION (Same as: Proventil) Ipratropium 2018-03 No Notes: SEE Memoria -21 RT l 01:00: DOCUMENTAT Demar ION (Same as:Atroven t) Fleet 2018-03 No 1 supp, Memoria Glycerin 20 Route: HI, l Suppositori 23:49: Dosing Herm shelton es Adult 00 Weight 125.5, kg, Daily, STAT, Start date: 02/05/19 17:49:00 CAN WASHER, Duration: 30 day, Stop date: 03/07/19 9:00:00 CAN WASHER Ativan 2018-03 No Notes: Memoria 1-20 (Same as: l 15:19: Ativan) Baclofen 2018-03 No Notes: Memoria -20 (Same As: l 15:16: Lioresal) gabapentin 2018-03 No Notes: Memor ia 100 MG Oral -20 (Same as: l Capsule 15:00: Neurontin) Reglan 2018-03 No Notes: Memoria 1-20 (Same as: l 08:22: Reglan) Phenergan 2018-03 No Notes: Do Mem oria -20 not give l 08:20: IV push. (Same as: Phenergan) Phenergan 2018-03 No 12.5 mg, Tom [place]ia 20 Route: PO, l 08:15: Drug form: TAB, Q4H, Dosing Weight 125.5, kg, PRN Nausea & Vomiting, Start date: 02/05/19 2:15:00 CAN WASHER, Duration: 30 day, Stop date: 03/07/19 2:14:00 CAN WASHER Tylenol 2018-03 No Notes: Memoria 1-20 Infuse l 08:15: over 15 minutes Do not exceed 4gm/day of acetaminop hen MEDICATION WASTE Product Size: 1000 mg Product Wasted: ___ mg Flagyl 2018-03 No Notes: Memoria 1-20 (Same as: l 03:00: Flagyl) Avoid alcohol. heparin 2018-03 No 7,500 Memoria - unit, 0.75 l 22:00: mL, Route: Mobile 00 SUB-Q, Drug form: INJ, Q8H, Dosing Weight 125.5, kg, Consider for obese patients, Start date: 02/04/19 16:00:00 CAN WASHER, Duration: 30 day, Stop date: 03/06/19 13:00:00 CAN WASHER, 0 vancomycin 2018-03 No 2001 mg: Me moria - infuse l 19:00: over 2.5 Demar 00 hours Flagyl 2018-03 No Notes: Memoria - (Same as: l 17:56: Flagyl) Avoid alcohol. Docusate 2018-03 No Notes: Memoria 04-06 (Same as: l 15:00: Colace) (Do Not Crush) sennosides, 2018-03 No Notes: Tom [place]ia [facility] 04-06 (Same as: l 15:00: Senokot) Saline 2018-03 No Notes: Memoria Flush 0.9% 04-06 Same as: l 15:00: BD Posiflush Sterile atorvastati 2018-03 No Notes: Tom [place] n 04-06 (Same as: l 15:00: Lipitor) Sertraline 2018-03 No Notes: Memor ia 04-06 (Same as: l 15:00: Zoloft) Levetiracet 2018-03 No Notes: Tom [place] am 500 MG 04-06 (Same l Oral Tablet 15:00: as:Keppra) [Keppra] 00 Baclofen 2018-03 No Notes: Memoria - (Same As: l 15:00: Lioresal) tamsulosin 2018-03 No Notes: Memor ia 04-06 (Same As: l 14:30: Flomax) "Do Not Crush" Valium 2018-03 No Notes: Memoria - (Same as: l 13:37: Valium) Valium 2018-03 No 5 mg, Memoria 04-06 Route: l 13:12: IVP, Drug form: INJ, BID, Dosing Weight 125.5, kg, PRN Seizure, Start date: 02/04/19 7:12:00 CAN WASHER, Duration: 30 day, Stop date: 03/06/19 7:11:00 CAN WASHER Omnipaque 2018-03 No Notes: Memori a 300 04-06 (Same l injectable 12:36: as:Omnipaq H ermann solution 00 ue 300). WASTE: F/P - Black; E - Municipal Trash Bin vancomycin 2018-03 No 2000 mg: Me moria + Sodium 04-06 infuse l Chloride 11:00: over 2.5 Chiquita nn 0.9% IV 500 00 hours For mL adult patients only: Round to nearest 250 mg per Medical Staff approval MEDICATION WASTE Product Size: 1000 mg Product Wasted: ___ mg NS (Bolus) 2018-03 No 1,000 mL, Me moria IV 04-06 1,000 l 10:47: ml/hr, Infuse Over: 1 hr, Route: IV, 1,000, Drug form: INJ, ONCE, Priority: STAT, Dosing Weight 125.5 kg, Start date: 02/04/19 4:47:00 CAN WASHER, Stop date: 02/04/19 4:47:00 CAN WASHER, 0 Dextrose 2018-03 No 12.5 gm, Memor ia 50% Syringe 04-06 25 mL, l 10:18: Route: Demar 00 IVP, Drug Form: INJ, Dosing Weight 125.5, kg, PRN, PRN Blood Glucose Results, Start date: 02/04/19 4:18:00 CAN WASHER, Duration: 30 day, Stop date: 03/06/19 4:17:00 CAN WASHER, 0 Glucagon 2018-03 No 1 mg, Memoria 04-06 Route: IM, l 10:18: Drug form: PDR/INJ, PRN, Dosing Weight 125.5, kg, PRN Blood Glucose Results, Start date: 02/04/19 4:18:00 CAN WASHER, Duration: 30 day, Stop date: 03/06/19 4:17:00 CAN WASHER, 0 Insulin 2018-03 No Notes: Memoria Lispro 04-06 (Same as: l 10:18: Humalog) Roll in palms of hands gently; Do not shake vigorously . WASTE: F/P - Black; E - Municipal Trash Bin Stable for 28 days at room temperatur e. Expires in days from ____Date Labetalol 2018-03 No Notes: Memori a 04-06 (Same as: l 10:05: Normodyne, Mobile Trandate) Push over 2 minutes Give bolus over 2-3 minutes. cefepime 2018-03 No Notes: Memoria 04-06 (Same as: l 10:00: Maxipime) Demar MEDICATION WASTE Product Size: 2000 mg Product Wasted: ___ mg Vancomycin 2018-03 No 1 ea, Memori a 04-06 Route: l 10:00: MISC, Mobile ONCALL, Dosing Weight 125.5, kg, Start date: 02/04/19 4:00:00 CAN WASHER, Duration: 7 day, Stop date: 02/11/19 3:59:00 CAN WASHER, Pharmacy to dose, ABX Indication : Fever of Unknown Source 0-60 days of age NS 1,000 mL 2018-03 No 1,000 mL, M emoria 04-06 Rate: 150 l 08:55: ml/hr, Infuse over: 6.7 hr, Route: IV, Dosing Weight 125.5 kg, Total Volume: 1,000, Start date: 02/04/19 2:55:00 CAN WASHER, Duration: 30 day, Stop date: 03/06/19 2:54:00 CAN WASHER, 2.51, m2, 0 Nystatin 2018-03 No Notes: Memoria 100 UNT/MG 04-06 (Same l Topical 08:54: as:Mycosta Herm shelton Powder 00 tin, Nilstat) For external use only. Acetaminoph 2018-03 No Notes: Do M emoria en 04-06 not exceed l 08:54: 4 gm/day. Mobile (Same as: Tylenol) Ondansetron 2018-03 No Notes: Tom [place] 04-06 (Same as: l 08:54: Zofran) Mobile 00 MEDICATION WASTE Product Size: 4 mg Product Wasted: ___ mg Saline 2018-03 No Notes: Memoria Flush 0.9% 04-06 Same as: l 08:54: BD Demar 00 Posiflush Sterile Potassium 2018-03 No Notes: Memori a Chloride - (Same as: l 08:54: KCL) Demar 00 Infuse no faster than 10 mEq/hr if given peripheral ly. sodium 2018-03 No Notes: Memoria phosphate -19 Infuse l 08:54: over 4 Demar 00 hour. Do not infuse phosphorou s concurrent ly in the same line as TPN or IVF that contains calcium. For double lumen central lines, phosphorou s may be infused in a separate lumen from TPN. potassium 2018-03 No Notes: Memori a phosphate -19 (Same as: l 08:54: K Demar 00 Phosphate. ) Do not infuse phosphorou s concurrent ly in the same line as TPN or IVF that contains calcium. For double lumen central lines, phosphorou s may be infused in a separate lumen from TPN. 1 mMol phoshate has 1.47 mEq potassium Infuse over 4 hours potassium 2018-03 No Notes: Memori a phosphate-s - (Same as: l odium 08:54: Phos-NaK) Mobile phosphate 00 Each 1.5 250 mg-280 gm pkt has mg-160 mg 250mg oral powder phosphorou for s. Mix reconstitut w/2.5oz ion water and stir. Magnesium 2018-03 No Notes: Memori a Sulfate 04-06 WASTE: F/P l 08:54: - Sink; E - Municipal Trash Bin Magnesium 2018-03 No Notes: Memori a Oxide 04-06 (Same as: l 08:54: Mag-Ox Mobile 00 400) Magnesium oxide [id number] g elemental magnesium Dose=____m g magnesium oxide (___mg elemental magnesium) Calcium 2018-03 No Notes: Memoria Gluconate 04-06 WASTE: F/P l 08:54: - Sink; E - Municipal Trash Bin Calcium 2018-03 No Notes: Memoria Carbonate 04-06 (Same As: l 500 MG 08:54: Tums) Mobile Chewable 00 Calcium Tablet Carbonate 500 mg = 200 mg elemental calcium Dose = mg calcium carbonate ( mg elemental calcium) TENS unit Yes [id number] 1{kit} 1 Kit Univers and 8-27 daily. ity of electrodes 00:00: [address] TENS unit 2019-0 Yes [id number] 1{kit} 1 Kit Univers and 8-27 daily. ity of electrodes 00:00: [address] TENS unit 2019-0 Yes [id number] 1{kit} 1 Kit Univers and 8-27 daily. ity of electrodes 00:00: [address] Branch gabapentin 2019-0 Yes [id number] 400mg Take 1 Univers 400 mg 8-27 capsule by ity of capsule 00:00: mouth 3 [place] [address] (three) Medical times [facility] daily. TENS unit 2019-0 Yes [id number] 1{kit} 1 Kit Univers and 8-27 daily. ity of electrodes 00:00: [address] TENS unit 2019-0 Yes [id number] 1{kit} 1 Kit Univers and 8-27 daily. ity of electrodes 00:00: [address] TENS unit 2019-0 Yes [id number] 1{kit} 1 Kit Univers and 8-27 daily. ity of electrodes 00:00: [address] TENS unit 2019-0 Yes [id number] 1{kit} 1 Kit Univers and 8-27 daily. ity of electrodes 00:00: [address] TENS unit 2019-0 Yes [id number] 1{kit} 1 Kit Univers and 8-27 daily. ity of electrodes 00:00: [address] TENS unit 2019-0 Yes [id number] 1{kit} 1 Kit Univers and 8-27 daily. ity of electrodes 00:00: [address] Branch TENS unit 2019-0 Yes [id number] 1{kit} 1 Kit Univers and 8-27 daily. ity of electrodes 00:00: [address] Branch TENS unit 2019-0 Yes [id number] 1{kit} 1 Kit Univers and 8-27 daily. ity of electrodes 00:00: [address] gabapentin 2019-0 Yes [id number] 400mg Take 1 Univers 400 mg 8-27 capsule by ity of capsule 00:00: mouth 3 [place] (three) Medical times [facility] daily. TENS unit 2019-0 Yes [id number] 1{kit} 1 Kit Univers and 8-27 daily. ity of electrodes 00:00: [address] TENS unit 2019-0 Yes [id number] 1{kit} 1 Kit Univers and 8-27 daily. ity of electrodes 00:00: [address] Branch TENS unit 2019-0 Yes [id number] 1{kit} 1 Kit Univers and 8-27 daily. ity of electrodes 00:00: [address] TENS unit 2019-0 Yes [id number] 1{kit} 1 Kit Univers and 8-27 daily. ity of electrodes 00:00: [address] gabapentin 2019-0 Yes [id number] 400mg Take 1 Univers 400 mg 8-27 capsule by ity of capsule 00:00: mouth 3 [place] (three) Medical times [facility] daily. TENS unit 2018-0 Yes [id number] 1{kit} 1 Kit Univers and 8-27 daily. ity of electrodes 00:00: [address] TENS unit 2019-0 Yes [id number] 1{kit} 1 Kit Univers and 8-27 daily. ity of electrodes 00:00: [address] gabapentin 2019-0 Yes [id number] 400mg Take 1 Univers 400 mg 8-27 capsule by ity of capsule 00:00: mouth 3 [place] (three) [facility] times [place] daily. TENS unit 2018-0 Yes [id number] 1{kit} 1 Kit Univers and 8-27 daily. ity of electrodes 00:00: [address] TENS unit 2019-0 Yes [id number] 1{kit} 1 Kit Univers and 8-27 daily. ity of electrodes 00:00: [address] TENS unit 2019-0 Yes [id number] 1{kit} 1 Kit Univers and 8-27 daily. ity of electrodes 00:00: [address] gabapentin 2019-0 Yes [id number] 400mg Take 1 Univers 400 mg 8-27 capsule by ity of capsule 00:00: mouth 3 [place] [address] (three) Medical times [facility] daily. TENS unit 2019-0 Yes [id number] 1{kit} 1 Kit Univers and 8-27 daily. ity of electrodes 00:00: [address] TENS unit 2019-0 Yes [id number] 1{kit} 1 Kit Univers and 8-27 daily. ity of electrodes 00:00: [place] [facility] 00 Medical Branch TENS unit 2019-0 Yes [id number] 1{kit} 1 Kit Univers and 8-27 daily. ity of electrodes 00:00: [facility] 00 Medical Branch TENS unit 2019-0 Yes [id number] 1{kit} 1 Kit Univers and 8-27 daily. ity of electrodes 00:00: [facility] Medical Branch TENS unit 2019-0 Yes [id number] 1{kit} 1 Kit Univers and 8-27 daily. ity of electrodes 00:00: [facility] 00 Medical Branch TENS unit 2018-0 Yes [id number] 1{kit} 1 Kit Univers and 8-27 daily. ity of electrodes 00:00: [facility] 00 Medical Branch TENS unit 2018-0 Yes [id number] 1{kit} 1 Kit Univers and 8-27 daily. ity of electrodes 00:00: [facility] Medical Branch TENS unit 2018-0 Yes [id number] 1{kit} 1 Kit Univers and 8-27 daily. ity of electrodes 00:00: [facility] Medical Branch TENS unit 2018-0 Yes [id number] 1{kit} 1 Kit Univers and 8-27 daily. ity of electrodes 00:00: [facility] Medical Branch TENS unit 2018-0 Yes [id number] 1{kit} 1 Kit Univers and 8-27 daily. ity of electrodes 00:00: [facility] Medical Branch TENS unit 2018-0 Yes [id number] 1{kit} 1 Kit Univers and 8-27 daily. ity of electrodes 00:00: [facility] Medical Branch TENS unit 2019-0 Yes [id number] 1{kit} 1 Kit Univers and 8-27 daily. ity of electrodes 00:00: [facility] 00 Medical Branch TENS unit 2019-0 Yes [id number] 1{kit} 1 Kit Univers and 8-27 daily. ity of electrodes 00:00: [facility] 00 Medical Branch TENS unit 2019-0 Yes [id number] 1{kit} 1 Kit Univers and 8-27 daily. ity of electrodes 00:00: [facility] 00 Medical Branch TENS unit 2019-0 Yes [id number] 1{kit} 1 Kit Univers and 8-27 daily. ity of electrodes 00:00: [facility] 00 Medical Branch TENS unit 2019-0 Yes [id number] 1{kit} 1 Kit Univers and 8-27 daily. ity of electrodes 00:00: [facility] 00 Medical Branch TENS unit 2019-0 Yes [id number] 1{kit} 1 Kit Univers and 8-27 daily. ity of electrodes 00:00: [facility] Medical Branch TENS unit 2019-0 Yes [id number] 1{kit} 1 Kit Univers and 8-27 daily. ity of electrodes 00:00: [facility] Medical Branch TENS unit 2019-0 Yes [id number] 1{kit} 1 Kit Univers and 8-27 daily. ity of electrodes 00:00: [facility] Medical Branch TENS unit 2019-0 Yes [id number] 1{kit} 1 Kit Univers and 8-27 daily. ity of electrodes 00:00: [facility] Medical Branch TENS unit 2018-0 Yes [id number] 1{kit} 1 Kit Univers and 8-27 daily. ity of electrodes 00:00: [facility] Medical Branch TENS unit 2018-0 Yes [id number] 1{kit} 1 Kit Univers and 8-27 daily. ity of electrodes 00:00: [facility] Medical Branch TENS unit 2019-0 Yes [id number] 1{kit} 1 Kit Univers and 8-27 daily. ity of electrodes 00:00: [facility] Medical Branch TENS unit 2018-0 Yes [id number] 1{kit} 1 Kit Univers and 8-27 daily. ity of electrodes 00:00: [facility] Medical Branch TENS unit 2019-0 Yes [id number] 1{kit} 1 Kit Univers and 8-27 daily. ity of electrodes 00:00: [facility] Medical Branch TENS unit 2019-0 Yes [id number] 1{kit} 1 Kit Univers and 8-27 daily. ity of electrodes 00:00: [facility] 00 Medical Branch TENS unit 2019-0 Yes [id number] 1{kit} 1 Kit Univers and 8-27 daily. ity of electrodes 00:00: [facility] 00 Medical Branch TENS unit 2019-0 Yes [id number] 1{kit} 1 Kit Univers and 8-27 daily. ity of electrodes 00:00: [place] [address] Medical Branch TENS unit 2018-0 Yes [id number] 1{kit} 1 Kit Univers and 8-27 daily. ity of electrodes 00:00: [facility] Medical Branch TENS unit 2019-0 Yes [id number] 1{kit} 1 Kit Univers and 8-27 daily. ity of electrodes 00:00: [address] TENS unit 2018-0 Yes [id number] 1{kit} 1 Kit Univers and 8-27 daily. ity of electrodes 00:00: [address] TENS unit 2018-0 Yes [id number] 1{kit} 1 Kit Univers and 8-27 daily. ity of electrodes 00:00: [address] TENS unit 2018-0 Yes [id number] 1{kit} 1 Kit Univers and 8-27 daily. ity of electrodes 00:00: [address] TENS unit 2018-0 Yes [id number] 1{kit} 1 Kit Univers and 8-27 daily. ity of electrodes 00:00: [address] TENS unit 2018-0 Yes [id number] 1{kit} 1 Kit Univers and 8-27 daily. ity of electrodes 00:00: [address] TENS unit 2018-0 Yes [id number] 1{kit} 1 Kit Univers and 8-27 daily. ity of electrodes 00:00: [address] TENS unit 2018-0 Yes [id number] 1{kit} 1 Kit Univers and 8-27 daily. ity of electrodes 00:00: [address] TENS unit 2018-0 Yes [id number] 1{kit} 1 Kit Univers and 8-27 daily. ity of electrodes 00:00: [address] gabapentin 2019-0 Yes [id number] 400mg Take 1 Univers 400 mg 8-27 capsule by ity of capsule 00:00: mouth 3 [place] [address] (three) [facility] times Branch daily. TENS unit 2018-0 Yes [id number] 1{kit} 1 Kit Univers and 8-27 daily. ity of electrodes 00:00: [address] TENS unit 2018-0 Yes [id number] 1{kit} 1 Kit Univers and 8-27 daily. ity of electrodes 00:00: [address] TENS unit 2018-0 Yes [id number] 1{kit} 1 Kit Univers and 8-27 daily. ity of electrodes 00:00: [address] TENS unit 2018-0 Yes [id number] 1{kit} 1 Kit Univers and 8-27 daily. ity of electrodes 00:00: [address] Branch TENS unit 2018-0 Yes [id number] 1{kit} 1 Kit Univers and 8-27 daily. ity of electrodes 00:00: [address] TENS unit 2018-0 Yes [id number] 1{kit} 1 Kit Univers and 8-27 daily. ity of electrodes 00:00: [address] TENS unit 2018-0 Yes [id number] 1{kit} 1 Kit Univers and 8-27 daily. ity of electrodes 00:00: [address] Branch TENS unit 2018-0 Yes [id number] 1{kit} 1 Kit Univers and 8-27 daily. ity of electrodes 00:00: [address] TENS unit 2018-0 Yes [id number] 1{kit} 1 Kit Univers and 8-27 daily. ity of electrodes 00:00: [address] Branch gabapentin 2020- No [id number] 400mg Take 1 Univers 400 mg 11-12 capsule by ity of capsule 00:00: 00:00 mouth 3 [place] 00 :00 (three) Medical times Branch daily. gabapentin 2020- No [id number] 400mg Take 1 Univers 400 mg 11-12 capsule by ity of capsule 00:00: 00:00 mouth 3 [place] 00 :00 (three) Medical times Branch daily. Saline No Notes: Memoria Flush 0.9% 09-24 (Same as: l 14:00: BD Posiflush) Famotidine No Notes: Memor ia 09-24 (Same as: l 14:00: Pepcid) Levetiracet No Notes: Tom virginia am 500 MG 09-24 (Same l Oral Tablet 14:00: as:Keppra) [Keppra] gabapentin No Notes: Memor ia 300 MG Oral 09-24 (Same as: l Capsule 13:00: Neurontin) Acetaminoph No Notes: Max Memoria en 09-24 acetaminop l 11:44: hen 4000 Demar 00 mg/day (4 gm/day). (Same as: Tylenol Extra Strength) atorvastati No Notes: Tom virginia n 09-24 (Same as: l 06:33: Lipitor) Saline No Notes: Memoria Flush 0.9% 09-24 (Same as: l 05:35: BD Posiflush) Sodium No 1,000 mL, Memori a Chloride 09-24 Rate: 100 l 0.9% IV 05:35: ml/hr, Demar 1,000 mL 00 Infuse over: 10 hr, Route: IV, Dosing Weight 120.455 kg, Total Volume: 1,000, Start date: 09/24/18 0:35:00 CDT, Duration: 30 day, Stop date: 10/24/18 0:34:00 CDT, 2.45, m2, 0 Insulin No Notes: Memoria Lispro 09-24 (Same as: l 05:33: Humalog) Roll in palms of hands gently; Do not shake vigorously . WASTE: F/P - Black; E - efw-suhl Trash Bin Stable for 28 days at room temperatur e. Expires in days from ____Date Dextrose No 25 gm, 50 Tom virginia 50% Syringe 09-24 mL, Route: l 05:33: IVP, Drug Form: INJ, Dosing Weight 120.455, kg, PRN, PRN Blood Glucose Results, Start date: 09/24/18 0:33:00 CDT, Duration: 30 day, Stop date: 10/24/18 0:32:00 CDT, 0 Glucagon No 1 mg, Memoria 09-24 Route: IM, l 05:33: Drug form: PDR/INJ, PRN, Dosing Weight 120.455, kg, PRN Blood Glucose Results, Start date: 09/24/18 0:33:00 CDT, Duration: 30 day, Stop date: 10/24/18 0:32:00 CDT, 0 baclofen 20 2018- Yes 20mg Take 20 mg Univers mg tablet 09-18 by mouth. ity o f 00:00: [address] baclofen 20 2018- Yes 20mg Take 20 mg Univers mg tablet 09-18 by mouth. ity o f 00:00: [facility] baclofen 20 2018-0 Yes 20mg Take 20 mg Univers mg tablet 7-03 by mouth. ity o f 00:00: [facility] baclofen 20 2018-0 Yes 20mg Take 20 mg Univers mg tablet 7-03 by mouth. ity o f 00:00: [facility] baclofen 20 2018-0 Yes 20mg Take 20 mg Univers mg tablet 7-03 by mouth. ity o f 00:00: [facility] baclofen 20 2018-0 Yes 20mg Take 20 mg Univers mg tablet 7-03 by mouth. ity o f 00:00: [facility] baclofen 20 2018-0 Yes 20mg Take 20 mg Univers mg tablet 7-03 by mouth. ity o f 00:00: [facility] baclofen 20 2018-0 Yes 20mg Take 20 mg Univers mg tablet 7-03 by mouth. ity o f 00:00: [facility] baclofen 20 2018-0 Yes 20mg Take 20 mg Univers mg tablet 7-03 by mouth. ity o f 00:00: [facility] baclofen 20 2018-0 Yes 20mg Take 20 mg Univers mg tablet 7-03 by mouth. ity o f 00:00: [facility] baclofen 20 2018-0 Yes 20mg Take 20 mg Univers mg tablet 7-03 by mouth. ity o f 00:00: [facility] baclofen 20 2018-0 Yes 20mg Take 20 mg Univers mg tablet 7-03 by mouth. ity o f 00:00: [facility] baclofen 20 2018-0 Yes 20mg Take 20 mg Univers mg tablet 7-03 by mouth. ity o f 00:00: [facility] baclofen 20 2018-0 Yes 20mg Take 20 mg Univers mg tablet 7-03 by mouth. ity o f 00:00: [facility] baclofen 20 2018-0 Yes 20mg Take 20 mg Univers mg tablet 7-03 by mouth. ity o f 00:00: [facility] baclofen 20 2018-0 Yes 20mg Take 20 mg Univers mg tablet 7-03 by mouth. ity o f 00:00: [facility] baclofen 20 2018-0 Yes 20mg Take 20 mg Univers mg tablet 7-03 by mouth. ity o f 00:00: [facility] baclofen 20 Yes 20mg Take 20 mg Univers mg tablet 7-03 by mouth. ity o f 00:00: [facility] baclofen 20 2018- Yes 20mg Take 20 mg Univers mg tablet 7-03 by mouth. ity o f 00:00: [facility] baclofen 20 Yes 20mg Take 20 mg Univers mg tablet 7-03 by mouth. ity o f 00:00: [facility] baclofen 20 Yes 20mg Take 20 mg Univers mg tablet 7-03 by mouth. ity o f 00:00: [facility] baclofen 20 Yes 20mg Take 20 mg Univers mg tablet 7-03 by mouth. ity o f 00:00: [facility] baclofen 20 Yes 20mg Take 20 mg Univers mg tablet 7-03 by mouth. ity o f 00:00: [facility] baclofen 2018- Yes [id number] 20mg Take 1 Tab [facility] (LIORESAL) 7-03 by mouth Colle ge 20 MG 00:00: every 6 of tablet 00 hours as Medicin needed. e baclofen Yes [id number] 20mg Take 1 Tab [facility] (LIORESAL) 7-03 by mouth Colle ge 20 MG 00:00: every 6 of tablet 00 hours as Medicin needed. e lancets Yes [id number] Use BID, Univers gauge Misc 6-18 DX E11.9 ity o f 00:00: ([facility] Branch approval) lancets Yes [id number] Use BID, Univers gauge Misc 6-18 DX E11.9 ity o f 00:00: ([facility] Branch approval) blood sugar 2018- Yes [id number] Use BID, Univers diagnostic 6-18 DX E11.9 ity o f (BLOOD 00:00: ([facility] GLUCOSE [address] [place] [address]) strip insurance [place] [facility] approval) lancets Yes [id number] Use BID, Univers gauge Misc 6-18 DX E11.9 ity o f 00:00: ([address] Branch approval) lancets 31 2018- Yes [id number] Use BID, Univers gauge Misc 6-18 DX E11.9 ity o f 00:00: ([facility] [place] 00 upon Medical insurance Branch approval) lancets 31 2019-0 Yes [id number] Use BID, Univers gauge Misc 6-18 DX E11.9 ity o f 00:00: ([facility] [place] 00 upon Medical insurance Branch approval) lancets 31 2019-0 Yes [id number] Use BID, Univers gauge Misc 6-18 DX E11.9 ity o f 00:00: ([facility] [place] 00 upon Medical insurance Branch approval) lancets 31 2019-0 Yes [id number] Use BID, Univers gauge Misc 6-18 DX E11.9 ity o f 00:00: ([facility] [place] 00 upon Medical insurance Branch approval) lancets 31 2019-0 Yes [id number] Use BID, Univers gauge Misc 6-18 DX E11.9 ity o f 00:00: (Brand [place] upon Medical insurance Branch approval) lancets 31 2019-0 Yes [id number] Use BID, Univers gauge Misc 6-18 DX E11.9 ity o f 00:00: ([facility] [place] 00 upon Medical insurance Branch approval) lancets 31 2019-0 Yes [id number] Use BID, Univers gauge Misc 6-18 DX E11.9 ity o f 00:00: ([facility] [place] 00 upon Medical insurance Branch approval) blood sugar 2019-0 Yes [id number] Use BID, Univers diagnostic 6-18 DX E11.9 ity o f (BLOOD 00:00: ([facility] [facility] [place] GLUCOSE 00 upon Medical TEST) strip insurance Bra formerly [facility] approval) lancets 31 2019-0 Yes [id number] Use BID, Univers gauge Misc 6-18 DX E11.9 ity o f 00:00: (Brand [place] 00 upon Medical insurance Branch approval) lancets 31 2019-0 Yes [id number] Use BID, Univers gauge Misc 6-18 DX E11.9 ity o f 00:00: (Brand [place] 00 upon Medical insurance Branch approval) lancets 31 2019-0 Yes [id number] Use BID, Univers gauge Misc 6-18 DX E11.9 ity o f 00:00: (Brand [place] 00 upon Medical insurance Branch approval) lancets 31 2019-0 Yes [id number] Use BID, Univers gauge Misc 6-18 DX E11.9 ity o f 00:00: (Brand [place] 00 upon Medical insurance Branch approval) blood sugar 2019-0 Yes [id number] Use BID, Univers diagnostic 6-18 DX E11.9 ity o f (BLOOD 00:00: (Brand [place] GLUCOSE 00 upon Medical TEST) strip insurance Bra formerly [facility] approval) lancets 31 2019-0 Yes [id number] Use BID, Univers gauge Misc 6-18 DX E11.9 ity o f 00:00: (Brand [place] 00 upon Medical insurance Branch approval) lancets 31 2019-0 Yes [id number] Use BID, Univers gauge Misc 6-18 DX E11.9 ity o f 00:00: (Brand [place] 00 upon Medical insurance Branch approval) lancets 31 2019-0 Yes [id number] Use BID, Univers gauge Misc 6-18 DX E11.9 ity o f 00:00: (Brand [place] 00 upon Medical insurance Branch approval) blood sugar 2019-0 Yes [id number] Use BID, Univers diagnostic 6-18 DX E11.9 ity o f (BLOOD 00:00: (Brand [place] GLUCOSE 00 upon Medical TEST) strip insurance Bra formerly [facility] approval) lancets 31 2018-0 Yes [id number] Use BID, Univers gauge Misc 6-18 DX E11.9 ity o f 00:00: (Brand [place] 00 upon Medical insurance Branch approval) lancets 31 2019-0 Yes [id number] Use BID, Univers gauge Misc 6-18 DX E11.9 ity o f 00:00: (Brand [place] 00 upon Medical insurance Branch approval) lancets 31 2019-0 Yes [id number] Use BID, Univers gauge Misc 6-18 DX E11.9 ity o f 00:00: (Brand [place] 00 upon Medical insurance Branch approval) blood sugar 2019-0 Yes [id number] Use BID, Univers diagnostic 6-18 DX E11.9 ity o f (BLOOD 00:00: (Brand [place] GLUCOSE 00 upon Medical TEST) strip insurance Bra formerly [facility] approval) lancets 31 2019-0 Yes [id number] Use BID, Univers gauge Misc 6-18 DX E11.9 ity o f 00:00: (Brand [place] 00 upon Medical insurance Branch approval) lancets 31 2019-0 Yes [id number] Use BID, Univers gauge Misc 6-18 DX E11.9 ity o f 00:00: (Brand [place] 00 upon Medical insurance Branch approval) lancets 31 2019-0 Yes [id number] Use BID, Univers gauge Misc 6-18 DX E11.9 ity o f 00:00: (Brand [place] 00 upon Medical insurance Branch approval) lancets 31 2019-0 Yes [id number] Use BID, Univers gauge Misc 6-18 DX E11.9 ity o f 00:00: (Brand [place] 00 upon Medical insurance Branch approval) lancets 31 2019-0 Yes [id number] Use BID, Univers gauge Misc 6-18 DX E11.9 ity o f 00:00: (Brand [place] 00 upon Medical insurance Branch approval) lancets 31 2019-0 Yes [id number] Use BID, Univers gauge Misc 6-18 DX E11.9 ity o f 00:00: (Brand [place] 00 upon Medical insurance Branch approval) lancets 31 2019-0 Yes [id number] Use BID, Univers gauge Misc 6-18 DX E11.9 ity o f 00:00: (Brand [place] upon Medical insurance Branch approval) lancets 31 2019-0 Yes [id number] Use BID, Univers gauge Misc 6-18 DX E11.9 ity o f 00:00: (Brand [place] 00 upon Medical insurance Branch approval) lancets 31 2019-0 Yes [id number] Use BID, Univers gauge Misc 6-18 DX E11.9 ity o f 00:00: (Brand [place] 00 upon Medical insurance Branch approval) blood sugar 2019-0 Yes [id number] Use BID, Univers diagnostic 6-18 DX E11.9 ity o f (BLOOD 00:00: ([facility] [place] GLUCOSE 00 upon Medical TEST) strip insurance Bra formerly [facility] approval) lancets 31 2019-0 Yes [id number] Use BID, Univers gauge Misc 6-18 DX E11.9 ity o f 00:00: (Brand [place] 00 upon Medical insurance Branch approval) lancets 31 2019-0 Yes [id number] Use BID, Univers gauge Misc 6-18 DX E11.9 ity o f 00:00: (Brand [place] 00 upon Medical insurance Branch approval) lancets 31 2019-0 Yes [id number] Use BID, Univers gauge Misc 6-18 DX E11.9 ity o f 00:00: (Brand [place] upon Medical insurance Branch approval) lancets 31 2019-0 Yes [id number] Use BID, Univers gauge Misc 6-18 DX E11.9 ity o f 00:00: (Brand [place] 00 upon Medical insurance Branch approval) lancets 31 2019-0 Yes [id number] Use BID, Univers gauge Misc 6-18 DX E11.9 ity o f 00:00: ([facility] [place] upon Medical insurance Branch approval) lancets 31 2019-0 Yes [id number] Use BID, Univers gauge Misc 6-18 DX E11.9 ity o f 00:00: ([facility] upon Medical insurance Branch approval) lancets 31 2019-0 Yes [id number] Use BID, Univers gauge Misc 6-18 DX E11.9 ity o f 00:00: ([facility] upon Medical insurance Branch approval) lancets 31 2019-0 Yes [id number] Use BID, Univers gauge Misc 6-18 DX E11.9 ity o f 00:00: ([facility] upon Medical insurance Branch approval) lancets 31 2019-0 Yes [id number] Use BID, Univers gauge Misc 6-18 DX E11.9 ity o f 00:00: ([facility] upon Medical insurance Branch approval) lancets 31 2019-0 Yes [id number] Use BID, Univers gauge Misc 6-18 DX E11.9 ity o f 00:00: ([facility] upon Medical insurance Branch approval) blood sugar 2019-0 Yes [id number] Use BID, Univers diagnostic 6-18 DX E11.9 ity o f (BLOOD 00:00: ([facility] GLUCOSE upon Medical TEST) strip insurance Bra formerly [facility] approval) lancets 31 2019-0 Yes [id number] Use BID, Univers gauge Misc 6-18 DX E11.9 ity o f 00:00: ([facility] upon Medical insurance Branch approval) lancets 31 2019-0 Yes [id number] Use BID, Univers gauge Misc 6-18 DX E11.9 ity o f 00:00: ([facility] upon Medical insurance Branch approval) lancets 31 2019-0 Yes [id number] Use BID, Univers gauge Misc 6-18 DX E11.9 ity o f 00:00: ([facility] upon Medical insurance Branch approval) lancets 31 2019-0 Yes [id number] Use BID, Univers gauge Misc 6-18 DX E11.9 ity o f 00:00: ([facility] upon Medical insurance Branch approval) lancets 31 2019-0 Yes [id number] Use BID, Univers gauge Misc 6-18 DX E11.9 ity o f 00:00: (Brand [place] 00 upon Medical insurance Branch approval) lancets 31 2019-0 Yes [id number] Use BID, Univers gauge Misc 6-18 DX E11.9 ity o f 00:00: (Brand [place] 00 upon Medical insurance Branch approval) lancets 31 2019-0 Yes [id number] Use BID, Univers gauge Misc 6-18 DX E11.9 ity o f 00:00: (Brand [place] 00 upon Medical insurance Branch approval) lancets 31 2019-0 Yes [id number] Use BID, Univers gauge Misc 6-18 DX E11.9 ity o f 00:00: (Brand [place] 00 upon Medical insurance Branch approval) lancets 31 2019-0 Yes [id number] Use BID, Univers gauge Misc 6-18 DX E11.9 ity o f 00:00: (Brand [place] upon Medical insurance Branch approval) lancets 31 2019-0 Yes [id number] Use BID, Univers gauge Misc 6-18 DX E11.9 ity o f 00:00: (Brand [place] 00 upon Medical insurance Branch approval) blood sugar 2019-0 Yes [id number] Use BID, Univers diagnostic 6-18 DX E11.9 ity o f (BLOOD 00:00: ([facility] [place] GLUCOSE 00 upon Medical TEST) strip insurance [facility] approval) lancets 31 2019-0 Yes [id number] Use BID, Univers gauge Misc 6-18 DX E11.9 ity o f 00:00: (Brand [place] 00 upon Medical insurance Branch approval) lancets 31 2019-0 Yes [id number] Use BID, Univers gauge Misc 6-18 DX E11.9 ity o f 00:00: (Brand [place] 00 upon Medical insurance Branch approval) lancets 31 2019-0 Yes [id number] Use BID, Univers gauge Misc 6-18 DX E11.9 ity o f 00:00: (Brand [place] upon Medical insurance Branch approval) lancets 31 2019-0 Yes [id number] Use BID, Univers gauge Misc 6-18 DX E11.9 ity o f 00:00: (Brand [place] upon Medical insurance Branch approval) lancets 31 2019-0 Yes [id number] Use BID, Univers gauge Misc 6-18 DX E11.9 ity o f 00:00: (Brand [place] upon Medical insurance Branch approval) lancets 31 2019-0 Yes [id number] Use BID, Univers gauge Misc 6-18 DX E11.9 ity o f 00:00: ([facility] 00 upon Medical insurance Branch approval) lancets 31 2019-0 Yes [id number] Use BID, Univers gauge Misc 6-18 DX E11.9 ity o f 00:00: ([facility] upon Medical insurance Branch approval) lancets 31 2019-0 Yes [id number] Use BID, Univers gauge Misc 6-18 DX E11.9 ity o f 00:00: ([facility] upon Medical insurance Branch approval) lancets 31 2019-0 Yes [id number] Use BID, Univers gauge Misc 6-18 DX E11.9 ity o f 00:00: ([facility] upon Medical insurance Branch approval) lancets 31 2019-0 Yes [id number] Use BID, Univers gauge Misc 6-18 DX E11.9 ity o f 00:00: ([facility] upon Medical insurance Branch approval) lancets 31 2019-0 Yes [id number] Use BID, Univers gauge Misc 6-18 DX E11.9 ity o f 00:00: ([facility] upon Medical insurance Branch approval) blood sugar 2019-0 Yes [id number] Use BID, Univers diagnostic 6-18 DX E11.9 ity o f (BLOOD 00:00: ([facility] GLUCOSE upon Medical TEST) strip insurance Bra formerly [facility] approval) lancets 31 2019-0 Yes [id number] Use BID, Univers gauge Misc 6-18 DX E11.9 ity o f 00:00: ([facility] upon Medical insurance Branch approval) lancets 31 2019-0 Yes [id number] Use BID, Univers gauge Misc 6-18 DX E11.9 ity o f 00:00: ([facility] upon Medical insurance Branch approval) lancets 31 2019-0 Yes [id number] Use BID, Univers gauge Misc 6-18 DX E11.9 ity o f 00:00: ([facility] upon Medical insurance Branch approval) lancets 31 2019-0 Yes [id number] Use BID, Univers gauge Misc 6-18 DX E11.9 ity o f 00:00: ([facility] upon Medical insurance Branch approval) lancets 31 2019-0 Yes [id number] Use BID, Univers gauge Misc 6-18 DX E11.9 ity o f 00:00: ([employer] [place] 00 upon Medical insurance Branch approval) lancets 31 2018- Yes [id number] Use BID, Univers gauge Misc 6-18 DX E11.9 ity o f 00:00: (Brand [place] upon Medical insurance Branch approval) lancets 31 2018- Yes [id number] Use BID, Univers gauge Misc 6-18 DX E11.9 ity o f 00:00: (Brand [place] upon Medical insurance Branch approval) lancets 2018- Yes [id number] Use BID, Univers gauge Misc 6-18 DX E11.9 ity o f 00:00: ([employer] [place] upon Medical insurance Branch approval) lancets 31 2018- Yes [id number] Use BID, Univers gauge Misc 6-18 DX E11.9 ity o f 00:00: (Brand [place] upon Medical insurance Branch approval) lancets 31 2018- Yes [id number] Use BID, Univers gauge Misc 6-18 DX E11.9 ity o f 00:00: (Brand [place] upon Medical insurance Branch approval) blood sugar 2020- No [id number] Use BID, Univers diagnostic 09-03 DX E11.9 ity of (BLOOD 00:00: 00:00 ([facility] GLUCOSE 00 :00 upon Medical TEST) strip insurance Bra formerly [facility] approval) blood sugar 2020- No [id number] Use BID, Univers diagnostic 6-18 04-01 DX E11.9 ity of (BLOOD 00:00: 00:00 ([facility] GLUCOSE 00 :00 upon Medical TEST) strip insurance Bra formerly [facility] approval) QUEtiapine Yes 100mg Take 100 Un hunter 100 mg 6-11 mg by ity of tablet 14:44: mouth at [place] 13 bedtime. Medical Branch hydrocortis 2018- Yes 10mg Take 10 mg Univers one 10 mg 6-11 by mouth ity of tablet 14:44: every [place] 13 morning. Medical Branch tamsulosin 2018- Yes .4mg Take 0.4 Uni vers 0.4 mg 24 6-11 mg by ity of hr capsule 14:44: mouth [place] 13 daily. Medical Branch QUEtiapine 2018- Yes 100mg Take 100 Un hunter 100 [...] by ity of hr capsule 14:44: mouth [place] 13 daily. Medical Branch gabapentin 2019-0 Yes [id number] 300mg Take 1 Univers 300 mg 6-11 capsule by ity of capsule 00:00: mouth 3 [place] 00 (three) Medical times Branch daily. gabapentin 2019-0 Yes [id number] 300mg Take 1 Univers 300 mg 6-11 capsule by ity of capsule 00:00: mouth 3 [place] 00 (three) Medical times Branch daily. gabapentin 2019-0 Yes [id number] 300mg Take 1 Univers 300 mg 6-11 capsule by ity of capsule 00:00: mouth 3 [place] 00 (three) Medical times Branch daily. gabapentin 2019-0 2019- No [id number] 300mg Take 1 Univers 300 mg 6-11 08-27 capsule by ity of capsule 00:00: 00:00 mouth 3 [place] 00 :00 (three) Medical times Branch daily. gabapentin 2018-0 2019- No [id number] 300mg Take 1 Univers 300 mg 6-11 08-27 capsule by ity of capsule 00:00: 00:00 mouth 3 [place] 00 :00 (three) Medical times Branch daily. gabapentin 2018-0 2019- No [id number] 300mg Take 1 Univers 300 mg 6-11 08-27 capsule by ity of capsule 00:00: 00:00 mouth 3 [place] 00 :00 (three) Medical times Branch daily. melatonin 3 2019-0 Yes 3mg QD Take [address] [facility] mg Tab 6-06 tablet (3 [facility] tablet 00:[facility]: mg total) Medica l 00 by mouth Center nightly. zinc 2019-[address] [facility] oxide-marc 6-06 liberally Yana es latum 00:00: 2 times a Medical (CRITIC-AID to Center ) 20-51 % buttock Pste skin tear. topical paste famotidine 2019-0 Yes 20mg Take [facility] (PEPCID[facility] 20 6-06 tablet (20 [facility] MG tablet 00:00: mg total) Med ical 00 by mouth Center every 12 (twelve) hours. famotidine 2019-0 Yes 20mg Take [facility] ([facility] 20 6-06 tablet (20 [facility] MG tablet 00:00: mg total) Med ical 00 by mouth Center every 12 (twelve) hours. melatonin 3 2019-0 Yes 3mg QD Take [address] [facility] mg Tab 6-06 tablet (3 [facility] tablet 00:00: mg total) Medica l 00 by mouth Center nightly. zinc Yes Apply [facility] oxide-marc 6-06 liberally Yana es latum 00:00: 2 times a Medical (CRITIC-AID 00 day to Center ) 20-51 % buttock Pste skin tear. topical paste famotidine Yes 20mg Take 1 [facility] (PEPCID[facility] 20 6-06 tablet (20 [facility] MG tablet 00:00: mg total) Med ical 00 by mouth Center every 12 (twelve) hours. melatonin 3 Yes 3mg QD Take [address] [facility] mg Tab 6-06 tablet (3 [facility] tablet 00:00: mg total) Medica l 00 by mouth Center nightly. zinc Yes Apply [facility] oxide-marc 6-06 liberally Ayna es latum 00:00: 2 times a Medical (CRITIC-AID 00 day to Center ) 20-51 % buttock Pste skin tear. topical paste Metformin No Notes: Memori a hydrochlori 5-20 (Same as: l de 500 MG 14:00: Glucophage He rmann Oral Tablet 00 ) Take with meal Aspirin 81 Yes 81 mg = 1 Me moria MG Enteric 5-19 tab, PO, l Coated 15:21: Daily, # Mobile Tablet 00 90 tab, 3 Refill(s), Pharmacy: [facility] [id number] Lactulose No Notes: Memori a 667 MG/ML 5-19 (Same l Oral 11:54: as:Chronul Mobile Solution 00 ac) Seroquel No Notes: Memoria 5-19 (Same as: l 02:00: SEROquel) tamsulosin No Notes: Memor ia 5-18 (Same As: l 14:00: Flomax) "Do Not Crush" Sertraline No Notes: Memor ia 5-18 (Same as: l 14:00: Zoloft) Hydrocortis No Notes: [place] one 5-18 (Same as: l 14:00: Cortef) Take with food. gabapentin No Notes: Memor ia 100 MG Oral 5-18 (Same as: l Capsule 14:00: Neurontin) Dextrose No 6.25 gm, Memor ia 50% Syringe 5-18 12.5 mL, l 12:07: Route: IVP, Drug Form: INJ, Dosing Weight 120.455, kg, PRN, PRN Abnormal Lab Result, Start date: 08/03/18 7:07:00 CDT, Duration: 30 day, Stop date: 09/02/18 7:06:00 CDT Regular No Notes: Memoria Insulin, 5-18 (Same as: l Human 100 12:07: Humulin R) He rmann UNT/ML 00 Roll in Injectable palms of Solution hands gently; Do not shake vigorously . WASTE: F/P - Black; E - Municipal Trash Bin Stable for 31 days at room temperatur e Expires in days from ____Date Zofran No Notes: [facility] 5-18 (Same as: l 11:53: Zofran) MEDICATION WASTE Product Size: 4 mg Product Wasted: ___ mg Levetiracet No Notes: [place] am 500 MG 5-18 (Same l Oral Tablet 07:35: as:[place]) Trazodone Yes PO, 0 Memoria 5-18 Refill(s) l 07:34: Hydrocortis Yes 10 mg, PO, Memoria one 5-18 Daily, 0 l 07:34: Refill(s) sertraline Yes 100 mg = 1 M emoria 100 mg oral 5-18 tab, PO, l tablet 07:34: Daily, # 00 30 tab, 0 Refill(s) heparin No Notes: Memoria 5-18 porcine l 05:00: heparin atorvastati Yes 80 mg = 1 M emoria n 80 mg 5-18 tab, PO, l oral tablet 03:33: Daily, 0 He 00 Refill(s) hydrocortis No 10 mg = 1 M emoria one 10 mg 5-18 tab, PO, l oral tablet 03:32: QAM, 0 Herm [place] 00 Refill(s) quetiapine Yes 100 mg = 1 M emoria 100 MG Oral 5-18 tab, PO, l Tablet 03:32: Bedtime, 0 Chiquita nn [Seroquel] 00 Refill(s) Metformin Yes 1,000 mg = Me moria hydrochlori 5-18 2 tab, PO, l de 500 MG 03:32: BID, 0 Mauricio n Oral Tablet 00 Refill(s) Saline No Notes: Memoria Flush 0.9% 5-18 (Same as: l 02:00: BD Demar Posiflush) Aspirin 325 No Notes: (Do Memoria MG Enteric 5-18 Not Crush) l Coated 02:00: Do not Demar Tablet 00 crush or chew. Docusate No Notes: Memoria 5-18 (Same as: l 02:00: Colace) Mobile (Do Not Crush) atorvastati No Notes: [place] n 5-18 Same as l 02:00: Lipitor Mobile Saline No Notes: Memoria Flush 0.9% 5-18 (Same as: l 01:29: BD Demar Posiflush) Acetaminoph No Notes: Do M emoria en 5-18 not exceed l 01:29: 4 gm/day. Mobile 00 (Same as: Tylenol) Iohexol No 100 mL, Memoria 5-18 Route: l 00:08: IVP, Drug Form: SOLN, Dosing Weight 118.182, kg, ONCALL, STAT, Start date: 08/02/18 19:08:00 CDT, Duration: 1 doses or times, Dose = 2.2ml/kg, Max dose = 100ml -- "To be infused by Radiology Staff ONLY" TENS unit Yes [id number] 1{kit} 1 Kit Univers and 4-09 daily. ity of electrodes 00:00: [address] TENS unit Yes [id number] 1{kit} 1 Kit Univers and 4-09 daily. ity of electrodes 00:00: [address] TENS unit Yes [id number] 1{kit} 1 Kit Univers and 06-25 daily. ity of electrodes 00:00: [facility] 00 Medical Branch TENS unit 2018-0 2019- No [id number] 1{kit} 1 Kit Univers and 06-25 daily. ity of electrodes 00:00: 00:00 [facility] 00 :00 Medical Branch TENS unit 2018-0 2019- No [id number] 1{kit} 1 Kit Univers and 06-25 daily. ity of electrodes 00:00: 00:00 [facility] 00 :00 Medical Branch TENS unit 2018-0 2019- No [id number] 1{kit} 1 Kit Univers and 06-25 daily. ity of electrodes 00:00: 00:00 [facility] 00 :00 Medical Branch levETIRAcet 2018-0 Yes [id number] 500mg Take 1 Univers am 500 mg 1-25 tablet by ity o f tablet 00:00: mouth [place] (two) Medical times Branch daily. levETIRAcet 2018-0 Yes [id number] 500mg Take 1 Univers am 500 mg 1-25 tablet by ity o f tablet 00:00: mouth [place] (two) Medical times Branch daily. levETIRAcet 2018-0 Yes [id number] 500mg Take 1 Univers am 500 mg 1-25 tablet by ity o f tablet 00:00: mouth [place] (two) Medical times Branch daily. levETIRAcet 2018-0 Yes [id number] 500mg Take 1 Univers am 500 mg 1-25 tablet by ity o f tablet 00:00: mouth [place] (two) Medical times Branch daily. levETIRAcet 2018-0 Yes [id number] 500mg Take 1 Univers am 500 mg 1-25 tablet by ity o f tablet 00:00: mouth [place] (two) Medical times Branch daily. levETIRAcet 2019-0 Yes [id number] 500mg Take 1 Univers am 500 mg 1-25 tablet by ity o f tablet 00:00: mouth 2 [place] (two) Medical times Branch daily. levETIRAcet 2018-0 Yes [id number] 500mg Take 1 Univers am 500 mg 1-25 tablet by ity o f tablet 00:00: mouth 2 [place] 00 (two) Medical times Branch daily. levETIRAcet Yes [id number] 500mg Take 1 Univers am 500 mg 1-25 tablet by ity o f tablet 00:00: mouth 2 00 (two) Medical times Branch daily. levETIRAcet Yes [id number] 500mg Take 1 Univers am 500 mg 1-25 tablet by ity o f tablet 00:00: mouth 2 00 (two) Medical times Branch daily. levETIRAcet 2019- No [id number] 500mg Take 1 Univers am 500 mg 1-25 -14 tablet by ity of tablet 00:00: 00:00 mouth 2 [place] 00 :00 (two) Medical times Branch daily. levETIRAcet 2019- No [id number] 500mg Take 1 Univers am 500 mg 1-25 -14 tablet by ity of tablet 00:00: 00:00 mouth 2 [place] 00 :00 (two) Medical times Branch daily. atorvastati 2017-03 Yes [id number] 80mg Take 1 Univers n 80 mg 0-19 tablet by ity of tablet 00:00: mouth at [place] 00 bedtime. Medical Branch SERTraline 2017-03 Yes [id number] 100mg Take 1 Univers 100 mg 0-19 tablet by ity of tablet 00:00: mouth [place] 00 every Medical morning. Branch metFORMIN 2017-03 Yes [id number] 1000mg Take 1 Univers 1,000 mg 0-19 tablet by ity of tablet 00:00: mouth 2 00 (two) Medical times Branch daily with meals. atorvastati 2017-03 Yes [id number] 80mg Take 1 Univers n 80 mg 0-19 tablet by ity of tablet 00:00: mouth at [place] 00 bedtime. Medical Branch SERTraline 2017-03 Yes [id number] 100mg Take 1 Univers 100 mg 0-19 tablet by ity of tablet 00:00: mouth [place] 00 every Medical morning. Branch metFORMIN 2017-03 Yes [id number] 1000mg Take 1 Univers 1,000 mg 0-19 tablet by ity of tablet 00:00: mouth 2 [place] 00 (two) Medical times Branch daily with meals. atorvastati 2017-03 Yes [id number] 80mg Take 1 Univers n 80 mg 0-19 tablet by ity of tablet 00:00: mouth at [place] 00 bedtime. Medical Branch SERTraline 2017-03 Yes [id number] 100mg Take 1 Univers 100 mg 0-19 tablet by ity of tablet 00:00: mouth [place] 00 every Medical morning. Branch metFORMIN 2017-03 Yes [id number] 1000mg Take 1 Univers 1,000 mg 0-19 tablet by ity of tablet 00:00: mouth 2 (two) Medical times Branch daily with meals. atorvastati 2017-03 Yes [id number] 80mg Take 1 Univers n 80 mg 0-19 tablet by ity of tablet 00:00: mouth at [place] 00 bedtime. Medical Branch SERTraline 2017-03 Yes [id number] 100mg Take 1 Univers 100 mg 0-19 tablet by ity of tablet 00:00: mouth [place] 00 every Medical morning. Branch metFORMIN 2017-03 Yes [id number] 1000mg Take 1 Univers 1,000 mg 0-19 tablet by ity of tablet 00:00: mouth 2 (two) Medical times [place] daily with meals. atorvastati 2017-03 Yes [id number] 80mg Take 1 Univers n 80 mg 0-19 tablet by ity of tablet 00:00: mouth at [place] 00 bedtime. Medical Branch SERTraline 2017-03 Yes [id number] 100mg Take 1 Univers 100 mg 0-19 tablet by ity of tablet 00:00: mouth [place] 00 every Medical morning. Branch metFORMIN 2017-03 Yes [id number] 1000mg Take 1 Univers 1,000 mg 0-19 tablet by ity of tablet 00:00: mouth 2 (two) Medical times [place] daily with meals. atorvastati 2017-03 Yes [id number] 80mg Take 1 Univers n 80 mg 0-19 tablet by ity of tablet 00:00: mouth at [place] 00 bedtime. Medical Branch SERTraline 2017-03 Yes [id number] 100mg Take 1 Univers 100 mg 0-19 tablet by ity of tablet 00:00: mouth 00 every Medical morning. Branch metFORMIN 2017-03 Yes [id number] 1000mg Take 1 Univers 1,000 mg 0-19 tablet by ity of tablet 00:00: mouth 2 (two) Medical times [place] daily with meals. atorvastati 2017-03 Yes [id number] 80mg Take 1 Univers n 80 mg 0-19 tablet by ity of tablet 00:00: mouth at [place] 00 bedtime. Medical Branch SERTraline 2017-03 Yes [id number] 100mg Take 1 Univers 100 mg 0-19 tablet by ity of tablet 00:00: mouth [place] 00 every Medical morning. Branch metFORMIN 2017-03 Yes [id number] 1000mg Take 1 Univers 1,000 mg 0-19 tablet by ity of tablet 00:00: mouth 2 [place] 00 (two) Medical times Branch daily with meals. atorvastati 2017-03 Yes [id number] 80mg Take 1 Univers n 80 mg 0-19 tablet by ity of tablet 00:00: mouth at [place] 00 bedtime. Medical Branch SERTraline 2017-03 Yes [id number] 100mg Take 1 Univers 100 mg 0-19 tablet by ity of tablet 00:00: mouth [place] 00 every Medical morning. Branch metFORMIN 2017-03 Yes [id number] 1000mg Take 1 Univers 1,000 mg 0-19 tablet by ity of tablet 00:00: mouth 2 [place] 00 (two) Medical times Branch daily with meals. atorvastati 2017-03 Yes [id number] 80mg Take 1 Univers n 80 mg 0-19 tablet by ity of tablet 00:00: mouth at [place] 00 bedtime. Medical Branch SERTraline 2017-03 Yes [id number] 100mg Take 1 Univers 100 mg 0-19 tablet by ity of tablet 00:00: mouth [place] 00 every Medical morning. Branch metFORMIN 2017-03 Yes [id number] 1000mg Take 1 Univers 1,000 mg 0-19 tablet by ity of tablet 00:00: mouth 2 [place] 00 (two) Medical times Branch daily with meals. atorvastati 2017-03 2020- No [id number] 80mg Take 1 Univers n 80 mg 0-19 01-14 tablet by ity of tablet 00:00: 00:00 mouth at [place] 00 :00 bedtime. Medical Branch SERTraline 2017-03 2020- No [id number] 100mg Take 1 Univers 100 mg 0-19 01-14 tablet by ity of tablet 00:00: 00:00 mouth [place] 00 :00 every Medical morning. Branch metFORMIN 2017-03 2020- No [id number] 1000mg Take 1 Univers 1,000 mg 0-19 01-14 tablet by ity o f tablet 00:00: 00:00 mouth 2 [place] 00 :00 (two) Medical times Branch daily with meals. atorvastati 2017-03 2020- No [id number] 80mg Take 1 Univers n 80 mg 0-04-01 tablet by ity of tablet 00:00: 00:00 mouth at [place] 00 :00 bedtime. Medical Branch SERTraline 2017-03- No [id number] 100mg Take 1 [facility] 100 mg 0-06 04-14 tablet by ity of tablet 00:00: 00:00 mouth [place] 00 :00 every Medical morning. Branch metFORMIN 2017-03- No [id number] 1000mg Take 1 [facility] 1,000 mg 0-04-01 tablet by ity o f tablet 00:00: 00:00 mouth 2 [place] 00 :00 (two) Medical times Branch daily with meals. Saline No Notes: [facility] Flush 0.9% 8-17 (Same as: l 02:00: BD Posiflush) atorvastati No Notes: [place] n 8-17 (Same as: l 02:00: Lipitor) Doxepin No Notes: [facility] 8-17 (Same as: l 02:00: SINEquan) Saline No Notes: [facility] Flush 0.9% 8-16 (Same as: l 14:46: BD Posiflush) tamsulosin No Notes: Memor ia 8-16 (Same As: l 14:00: Flomax) "Do Not Crush" sennosides, No Notes: [facility] [place] [facility] 8.6 MG 8-16 (Same as: l Oral Tablet 14:00: Senokot) He Metformin No Notes: Memori a hydrochlori 8-16 (Same as: l de 500 MG 14:00: Glucophage He rmann Oral Tablet 00 ) Take with meal Lorazepam No Notes: Memori a 8-16 (Same as: l 14:00: Ativan) Levetiracet No Notes: [place] am 500 MG 8-16 (Same l Oral Tablet 14:00: as:Keppra) docusate No Notes: [facility] sodium 8-16 (Same as: l 14:00: Colace) (Do Not Crush) gabapentin No Notes: Memor ia 100 MG Oral 8-16 (Same as: l Capsule 14:00: Neurontin) Aspirin 81 No Notes: Memor ia MG Chewable 8-16 Take with l Tablet 14:00: food. Tylenol No Notes: Do Memor ia 8-16 not exceed l 08:56: 4 gm/day. (Same as: Tylenol) Glucagon No 1 mg, Memoria 8-16 Route: IM, l 07:27: Drug form: PDR/INJ, PRN, Dosing Weight 113.693, kg, PRN Blood Glucose Results, Start date: 11/01/17 2:27:00 CDT, Duration: 30 day, Stop date: 12/01/17 2:26:00 CDT Insulin No Notes: [facility] Lispro 8-16 (Same as: l 07:27: Humalog ) Roll in palms of hands gently; Do not shake `vigorousl y. "Single Patient Use Only " WASTE: F/P - Black; E - efw-suhl Trash Bin Stable for 28 days at room temperatur e. Expires in days from ____Date Dextrose No 25 gm, 50 [place] 50% Syringe 8-16 mL, Route: l 07:27: IVP, Drug Form: INJ, Dosing Weight 113.693, kg, PRN, PRN Blood Glucose Results, Start date: 11/01/17 2:27:00 CDT, Duration: 30 day, Stop date: 12/01/17 2:26:00 CDT Tylenol Yes 325 mg, Memoria 8-16 PO, PRN l 07:10: Pain Score 1-5, 0 Refill(s) sennosides, Yes 8.6 mg = 1 [facility] 8.6 MG 8-16 tab, PO, l Oral Tablet 07:10: Daily, 0 He rm Refill(s) docusate Yes 100 mg, Memori a sodium 8-16 PO, BID, 0 l 07:10: Refill(s) Mobile 00 Lorazepam 1 Yes 1 mg = 1 Me moria MG Oral 8-16 tab, PO, l Tablet 07:10: TID, 0 Mobile 00 Refill(s) Aspirin 81 Yes 81 mg = 1 Me moria MG Chewable 8-16 tab, PO, l Tablet 07:10: Daily, Mobile 00 tab, 0 Refill(s) pneumococca No 0.5 mL, Mem oria l capsular 8-16 Route: IM, l polysacchar 06:41: ONCALL, Her adams paula type 1 31 Start vaccine / date: pneumococca 11/01/17 l capsular 1:41:31 polysacchar CDT, Stop paula type date: 10A vaccine 12/01/17 / 1:36:31 pneumococca CDT l capsular polysacchar paula type 11A vaccine / pneumococca l capsular polysacchar paula type 12F vaccine / pneumococca l capsular polysacchar gabapentin Yes 100 mg = 1 M emoria 100 MG Oral 8-16 cap, PO, l Capsule 06:41: BID, # 90 Chiquita nn 00 cap, 1 Refill(s) atorvastati Yes 40 mg = 1 M emoria n 40 mg 8-16 tab, PO, l oral tablet 06:41: Bedtime, # Demar 00 30 tab, 0 Refill(s) normal No 1,000 mL, Memori a saline 0.9% -16 Rate: 75 l IV 1,000 mL 04:39: ml/hr, Herm Infuse over: 13.3 hr, Route: IV, Dosing Weight 113.636 kg, Total Volume: 1,000, Start date: 10/31/17 23:39:00 CDT, Duration: 30 day, Stop date: 11/30/17 23:38:00 CDT, 2.38, m2 Zofran No Notes: [facility] 8-16 (Same as: l 04:36: Zofran) Demar 00 MEDICATION WASTE Product Size: 4 mg Product Wasted: ___ mg Morphine No Notes: [facility] 8-16 (Same l 04:36: as:MORPhin 00 e Sulfate) Saline No Notes: [facility] Flush 0.9% 8-16 (Same as: l 00:54: BD Demar 00 Posiflush) sennosides, No 8.6 mg = 1 [facility] 8.6 MG 4-12 tab, PO, l Oral Tablet 23:24: Daily, 0 He rmann 00 Refill(s) atorvastati No 20 mg = 1 M emoria n 20 mg 4-12 tab, PO, l oral tablet 23:24: Bedtime, 0 Mobile 00 Refill(s) Levetiracet No 500 mg = 1 Memoria am 500 MG 4-12 tab, PO, l Oral Tablet 23:24: Q12H, 0 Her adams 00 Refill(s) enoxaparin No 40 mg = [facility] [place] 40 mg/0.4 4-12 0.4 mL, l mL 23:24: SUB-Q, Mobile subcutaneou 00 [id number], s solution 0 Refill(s) Docusate No 100 mg = 1 Mem oria Sodium 100 4-12 cap, PO, l MG Oral 23:24: BID, 0 Mobile Capsule 00 Refill(s) Aspirin 81 No 81 mg = 1 Me moria MG Enteric 4-12 tab, PO, l Coated 23:24: Daily, 0 Demar Tablet 00 Refill(s) Acetaminoph No 100.4 F, M emoria en 325 MG 4-12 0 l Oral Tablet 23:24: Refill(s) H ermann tamsulosin No 0.4 mg = 1 M emoria 0.4 mg oral 4-12 cap, PO, l capsule 23:24: Daily, 0 Mauricio n 00 Refill(s) sertraline No 100 mg = 1 M emoria 100 mg oral 4-12 tab, PO, l tablet 23:24: Daily, 0 Demar 00 Refill(s) Docusate No Notes: [facility] Sodium 100 4-10 (Same as: l MG Oral 22:00: Colace) Demar Capsule 00 (Do Not Crush) Bisacodyl No Notes: Memori a 4-10 (Same As: l 20:45: Dulcolax, Mobile 00 Bisco-Lax) Keppra No Notes: [facility] 4-10 (Same l 17:22: as:Keppra) Calcium No Notes: [facility] Gluconate 06-26 WASTE: F/P l 13:27: - Sink; E - Municipal Trash Bin Hydralazine No Notes: [place] 06-25 (Same as: l 13:45: Apresoline ) Push over 5 minutes Acetaminoph No Notes: Do M emoria en 06-25 not exceed l 13:45: 4 gm/day. (Same as: Tylenol) Zofran No Notes: [facility] 06-25 (Same as: l 13:45: Zofran) MEDICATION WASTE Product Size: 4 mg Product Wasted: ___ mg atorvastati No 20 mg, [place] n 06-25 Route: PO, l 02:00: Drug form: TAB, Bedtime, Dosing Weight 115.455, kg, Start date: 06/24/17 21:00:00 CDT, Duration: 30 day, Stop date: 07/23/17 21:00:00 CDT Humulin N No Notes: Memori a 06-25 Roll in l 02:00: palms of hands gently; Do not shake vigorously . (Same as: Humulin N) Do not hold insulin without contacting prescriber WASTE: F/P - Black; E - Municipal Trash Bin Stable for 28 days at room temperatur e Expires in days from ____Date sennosides, No Notes: [facility] [place] [facility] 8.6 MG 06-24 (Same as: l Oral Tablet 14:00: Senokot) [facility] Sertraline No Notes: Memor ia 06-24 (Same as: l 14:00: Zoloft) tamsulosin No 0.4 mg, Tom [place] 06-24 Route: PO, l 14:00: Drug form: CAP, Daily, Dosing Weight 115.455, kg, Start date: 06/24/17 9:00:00 CDT, Duration: 30 day, Stop date: 07/23/17 9:00:00 CDT pneumococca No Notes: [place] l capsular -08 (Same as: l polysacchar 13:00: Pneumovax H ermann paula type 1 00 23) vaccine / Refrigerat pneumococca e l capsular polysacchar paula type 10A vaccine / pneumococca l capsular polysacchar paula type 11A vaccine / pneumococca l capsular polysacchar paula type 12F vaccine / pneumococca l capsular polysacchar Iohexol No 60 mL, Memoria -08 Route: l 06:43: IVP, Drug Form: SOLN, Dosing Weight 115.455, kg, ONCALL, STAT, Start date: 06/24/17 1:43:00 CDT, Duration: 1 doses or times, Dose = 2.2ml/kg, Max dose = 100ml -- "To be infused by Radiology Staff ONLY" Lovenox No Notes: Memoria -08 (Same as: l 03:00: Lovenox) atorvastati No Notes: [place] n -08 (Same As: l 02:29: Lipitor) tamsulosin No Notes: Memor ia -08 (Same As: l 02:23: Flomax) "Do Not Crush" Aspirin No Notes: Do Memor ia -08 not crush l 02:21: or chew. (Same As: Ecotrin) Insulin No 60 units) [facility] [place] regular 08 WASTE: F/P l 02:20: - Black; E - Municipal Trash Bin Stable for 28 days at room temperatur e Expires in days from ____Date Dextrose No 25 gm, 50 [facility] [place] 50% Syringe 4-08 mL, Route: l 02:20: IVP, Drug Form: INJ, Dosing Weight 115.455, kg, PRN, PRN Blood Glucose Results, Start date: 06/23/17 21:20:00 CDT, Duration: 30 day, Stop date: 07/23/17 21:19:00 CDT Glucagon No 1 mg, Memoria 4-08 Route: IM, l 02:20: Drug form: Mobile 00 PDR/INJ, PRN, Dosing Weight 115.455, kg, PRN Blood Glucose Results, Start date: 06/23/17 21:20:00 CDT, Duration: 30 day, Stop date: 07/23/17 21:19:00 CDT Baclofen No Route: Memoria 4-08 INTRATHECA l 02:19: L, Drug Mobile 00 form: INJ, Continuous , Dosing Weight 115.455, kg, PRN as needed for muscle spasm, Start date: 06/23/17 21:19:00 CDT, Duration: 30 day, Stop date: 07/23/17 21:18:00 CDT Saline No Notes: [facility] Flush 0.9% 4-08 (Same as: l 02:00: BD Mobile 00 Posiflush) Saline No Notes: [facility] Flush 0.9% 4-08 (Same as: l 01:01: BD Mobile 00 Posiflush) olanzapine Yes [id number] 5mg Take 1 Tab Levi (ZYPREXA) 5 3-27 by mouth Gema ege MG tablet 00:00: nightly. of 00 Medicin e olanzapine Yes [id number] 5mg Take 1 Tab Levi (ZYPREXA) 5 3-27 by mouth Gema ege MG tablet 00:00: nightly. of 00 Medicin e atorvastati 2016-03 Yes [id number] TAKE 1 Levi n (LIPITOR) 2-11 TABLET BY Col lege 20 MG 00:00: MOUTH of tablet 00 EVERY Medicin NIGHT AT e BEDTIME atorvastati 2016-03 Yes [id number] 20mg Take 20 mg Levi n (LIPITOR) 2-11 by mouth Gema ege 20 MG 00:00: daily. of tablet 00 Medicin e TENS UNIT 2016-03 Yes [id number] Use TENS [facility] ELECTRODES 1-22 unit at ity of (TENS UNITS 00:00: least 2 [place] as ELECTRODES) 00 times a Medic al 2X2 " Pads day as Branch needed for pain. TENS UNIT 2016-03 Yes [id number] Use TENS [facility] ELECTRODES 1-22 unit at ity of (TENS UNITS 00:00: least 2 [place] as ELECTRODES) 00 times a Medic al 2X2 " Pads day as Branch needed for pain. TENS UNIT 2016-03 Yes [id number] Use TENS [facility] ELECTRODES 1-22 unit at ity of (TENS UNITS 00:00: least 2 [place] as ELECTRODES) 00 times a Medic al 2X2 " Pads day as Branch needed for pain. TENS UNIT 2016-03 Yes [id number] Use TENS [facility] ELECTRODES 1-22 unit at ity of (TENS UNITS 00:00: least 2 [place] as ELECTRODES) 00 times a Medic al 2X2 " Pads day as Branch needed for pain. TENS UNIT 2016-03 Yes [id number] Use TENS [facility] ELECTRODES 1-22 unit at ity of (TENS UNITS 00:00: least 2 [place] as ELECTRODES) 00 times a Medic al 2X2 " Pads day as Branch needed for pain. TENS UNIT 2016-03 Yes [id number] Use TENS [facility] ELECTRODES 1-22 unit at ity of (TENS UNITS 00:00: least 2 [place] as ELECTRODES) 00 times a Medic al 2X2 " Pads day as Branch needed for pain. TENS UNIT 2016-03 Yes [id number] Use TENS [facility] ELECTRODES 1-22 unit at ity of (TENS UNITS 00:00: least 2 [place] as ELECTRODES) 00 times a Medic al 2X2 " Pads day as Branch needed for pain. TENS UNIT 2016-03 Yes [id number] Use TENS [facility] ELECTRODES 1-22 unit at ity of (TENS UNITS 00:00: least 2 [place] as ELECTRODES) 00 times a Medic al 2X2 " Pads day as Branch needed for pain. TENS UNIT 2016-03 Yes [id number] Use TENS [facility] ELECTRODES 1-22 unit at ity of (TENS UNITS 00:00: least 2 [place] as ELECTRODES) 00 times a Medic al 2X2 " Pads day as Branch needed for pain. TENS UNIT 2016-03 Yes [id number] Use TENS [facility] ELECTRODES 1-22 unit at ity of (TENS UNITS 00:00: least 2 [place] as ELECTRODES) 00 times a Medic al 2X2 " Pads day as Branch needed for pain. TENS UNIT 2016-03 Yes [id number] Use TENS [facility] ELECTRODES 1-22 unit at ity of (TENS UNITS 00:00: least 2 [place] as ELECTRODES) 00 times a Medic al 2X2 " Pads day as Branch needed for pain. TENS UNIT 2016-03 Yes [id number] Use TENS [facility] ELECTRODES 1-22 unit at ity of (TENS UNITS 00:00: least 2 [place] as ELECTRODES) 00 times a Medic al 2X2 " Pads day as Branch needed for pain. TENS UNIT 2016-03 Yes [id number] Use TENS [facility] ELECTRODES 1-22 unit at ity of (TENS UNITS 00:00: least 2 [place] as ELECTRODES) 00 times a Medic al 2X2 " Pads day as Branch needed for pain. TENS UNIT 2016-03 Yes [id number] Use TENS [facility] ELECTRODES 1-22 unit at ity of (TENS UNITS 00:00: least 2 [place] as ELECTRODES) 00 times a Medic al 2X2 " Pads day as Branch needed for pain. TENS UNIT 2016-03 Yes [id number] Use TENS [facility] ELECTRODES 1-22 unit at ity of (TENS UNITS 00:00: least 2 [place] as ELECTRODES) 00 times a Medic al 2X2 " Pads day as Branch needed for pain. TENS UNIT 2016-03 Yes [id number] Use TENS [facility] ELECTRODES 1-22 unit at ity of (TENS UNITS 00:00: least 2 [place] as ELECTRODES) 00 times a Medic al 2X2 " Pads day as Branch needed for pain. TENS UNIT 2016-03 Yes [id number] Use TENS [facility] ELECTRODES 1-22 unit at ity of (TENS UNITS 00:00: least 2 [place] as ELECTRODES) 00 times a Medic al 2X2 " Pads day as Branch needed for pain. TENS UNIT 2016-03 Yes [id number] Use TENS [facility] ELECTRODES 1-22 unit at ity of (TENS UNITS 00:00: least 2 [place] as ELECTRODES) 00 times a Medic al 2X2 " Pads day as Branch needed for pain. TENS UNIT 2016-03 Yes [id number] Use TENS [facility] ELECTRODES 1-22 unit at ity of (TENS UNITS 00:00: least 2 [place] as ELECTRODES) 00 times a Medic al 2X2 " Pads day as Branch needed for pain. TENS UNIT 2016- Yes [id number] Use TENS [facility] ELECTRODES 1-22 unit at ity of (TENS UNITS 00:00: least 2 [place] as ELECTRODES) 00 times a Medic al 2X2 " Pads day as Branch needed for pain. TENS UNIT 2016- Yes [id number] Use TENS [facility] ELECTRODES 1-22 unit at ity of (TENS UNITS 00:00: least 2 [place] as ELECTRODES) 00 times a Medic al 2X2 " Pads day as Branch needed for pain. TENS UNIT 2016-03 Yes [id number] Use TENS [facility] ELECTRODES 1-22 unit at ity of (TENS UNITS 00:00: least 2 [place] as ELECTRODES) 00 times a Medic al 2X2 " Pads day as Branch needed for pain. TENS UNIT 2016-03 Yes [id number] Use TENS [facility] ELECTRODES 1-22 unit at ity of (TENS UNITS 00:00: least 2 [place] as ELECTRODES) 00 times a Medic al 2X2 " Pads day as Branch needed for pain. TENS UNIT 2016-03 Yes [id number] Use TENS [facility] ELECTRODES 1-22 unit at ity of (TENS UNITS 00:00: least 2 [place] as ELECTRODES) 00 times a Medic al 2X2 " Pads day as Branch needed for pain. TENS UNIT 2016-03 Yes [id number] Use TENS [facility] ELECTRODES 1-22 unit at ity of (TENS UNITS 00:00: least 2 [place] as ELECTRODES) 00 times a Medic al 2X2 " Pads day as Branch needed for pain. TENS UNIT 2016-03 Yes [id number] Use TENS [facility] ELECTRODES 1-22 unit at ity of (TENS UNITS 00:00: least 2 [place] as ELECTRODES) 00 times a Medic al 2X2 " Pads day as Branch needed for pain. TENS UNIT 2016-03 Yes [id number] Use TENS [facility] ELECTRODES 1-22 unit at ity of (TENS UNITS 00:00: least 2 [place] as ELECTRODES) 00 times a Medic al 2X2 " Pads day as Branch needed for pain. TENS UNIT 2016-03 Yes [id number] Use TENS [facility] ELECTRODES 1-22 unit at ity of (TENS UNITS 00:00: least 2 [place] as ELECTRODES) 00 times a Medic al 2X2 " Pads day as Branch needed for pain. TENS UNIT 2016-03 Yes [id number] Use TENS [facility] ELECTRODES 1-22 unit at ity of (TENS UNITS 00:00: least 2 [place] as ELECTRODES) 00 times a Medic al 2X2 " Pads day as Branch needed for pain. TENS UNIT 2016- Yes [id number] Use TENS [facility] ELECTRODES 1-22 unit at ity of (TENS UNITS 00:00: least 2 [place] as ELECTRODES) 00 times a Medic al 2X2 " Pads day as Branch needed for pain. TENS UNIT 2016-03 Yes [id number] Use TENS [facility] ELECTRODES 1-22 unit at ity of (TENS UNITS 00:00: least 2 [place] as ELECTRODES) 00 times a Medic al 2X2 " Pads day as Branch needed for pain. TENS UNIT 2016-03 Yes [id number] Use TENS [facility] ELECTRODES 1-22 unit at ity of (TENS UNITS 00:00: least 2 [place] as ELECTRODES) 00 times a Medic al 2X2 " Pads day as Branch needed for pain. TENS UNIT 2016-03 Yes [id number] Use TENS [facility] ELECTRODES 1-22 unit at ity of (TENS UNITS 00:00: least 2 [place] as ELECTRODES) 00 times a Medic al 2X2 " Pads day as Branch needed for pain. TENS UNIT 2016-03 Yes [id number] Use TENS [facility] ELECTRODES 1-22 unit at ity of (TENS UNITS 00:00: least 2 [place] as ELECTRODES) 00 times a Medic al 2X2 " Pads day as Branch needed for pain. TENS UNIT 2016-03 Yes [id number] Use TENS [facility] ELECTRODES 1-22 unit at ity of (TENS UNITS 00:00: least 2 [place] as ELECTRODES) 00 times a Medic al 2X2 " Pads day as Branch needed for pain. TENS UNIT 2016-03 Yes [id number] Use TENS [facility] ELECTRODES 1-22 unit at ity of (TENS UNITS 00:00: least 2 [place] as ELECTRODES) 00 times a Medic al 2X2 " Pads day as Branch needed for pain. TENS UNIT 2016-03 Yes [id number] Use TENS [facility] ELECTRODES 1-22 unit at ity of (TENS UNITS 00:00: least 2 [place] as ELECTRODES) 00 times a Medic al 2X2 " Pads day as Branch needed for pain. TENS UNIT 2016-03 Yes [id number] Use TENS [facility] ELECTRODES 1-22 unit at ity of (TENS UNITS 00:00: least 2 [place] as ELECTRODES) 00 times a Medic al 2X2 " Pads day as Branch needed for pain. TENS UNIT 2016-03 Yes [id number] Use TENS [facility] ELECTRODES 1-22 unit at ity of (TENS UNITS 00:00: least 2 [place] as ELECTRODES) 00 times a Medic al 2X2 " Pads day as Branch needed for pain. TENS UNIT 2016- Yes [id number] Use TENS [facility] ELECTRODES 1-22 unit at ity of (TENS UNITS 00:00: least 2 [place] as ELECTRODES) 00 times a Medic al 2X2 " Pads day as Branch needed for pain. TENS UNIT 2016-03 Yes [id number] Use TENS [facility] ELECTRODES 1-22 unit at ity of (TENS UNITS 00:00: least 2 [place] as ELECTRODES) 00 times a Medic al 2X2 " Pads day as Branch needed for pain. TENS UNIT 2016-03 Yes [id number] Use TENS [facility] ELECTRODES 1-22 unit at ity of (TENS UNITS 00:00: least 2 [place] as ELECTRODES) 00 times a Medic al 2X2 " Pads day as Branch needed for pain. TENS UNIT 2016-03 Yes [id number] Use TENS [facility] ELECTRODES 1-22 unit at ity of (TENS UNITS 00:00: least 2 [place] as ELECTRODES) 00 times a Medic al 2X2 " Pads day as Branch needed for pain. TENS UNIT 2016-03 Yes [id number] Use TENS [facility] ELECTRODES 1-22 unit at ity of (TENS UNITS 00:00: least 2 [place] as ELECTRODES) 00 times a Medic al 2X2 " Pads day as Branch needed for pain. TENS UNIT 2016-03 Yes [id number] Use TENS [facility] ELECTRODES 1-22 unit at ity of (TENS UNITS 00:00: least 2 [place] as ELECTRODES) 00 times a Medic al 2X2 " Pads day as Branch needed for pain. TENS UNIT 2016-03 Yes [id number] Use TENS [facility] ELECTRODES 1-22 unit at ity of (TENS UNITS 00:00: least 2 [place] as ELECTRODES) 00 times a Medic al 2X2 " Pads day as Branch needed for pain. TENS UNIT 2016-03 Yes [id number] Use TENS [facility] ELECTRODES 1-22 unit at ity of (TENS UNITS 00:00: least 2 [place] as ELECTRODES) 00 times a Medic al 2X2 " Pads day as Branch needed for pain. TENS UNIT 2016-03 Yes [id number] Use TENS [facility] ELECTRODES 1-22 unit at ity of (TENS UNITS 00:00: least 2 [place] as ELECTRODES) 00 times a Medic al 2X2 " Pads day as Branch needed for pain. TENS UNIT 2016- Yes [id number] Use TENS [facility] ELECTRODES 1-22 unit at ity of (TENS UNITS 00:00: least 2 [place] as ELECTRODES) 00 times a Medic al 2X2 " Pads day as Branch needed for pain. TENS UNIT 2016-03 Yes [id number] Use TENS [facility] ELECTRODES 1-22 unit at ity of (TENS UNITS 00:00: least 2 [place] as ELECTRODES) 00 times a Medic al 2X2 " Pads day as Branch needed for pain. TENS UNIT 2016-03 Yes [id number] Use TENS [facility] ELECTRODES 1-22 unit at ity of (TENS UNITS 00:00: least 2 [place] as ELECTRODES) 00 times a Medic al 2X2 " Pads day as Branch needed for pain. TENS UNIT 2016-03 Yes [id number] Use TENS [facility] ELECTRODES 1-22 unit at ity of (TENS UNITS 00:00: least 2 [place] as ELECTRODES) 00 times a Medic al 2X2 " Pads day as Branch needed for pain. TENS UNIT 2016-03 Yes [id number] Use TENS [facility] ELECTRODES 1-22 unit at ity of (TENS UNITS 00:00: least 2 [place] as ELECTRODES) 00 times a Medic al 2X2 " Pads day as Branch needed for pain. TENS UNIT 2016-03 Yes [id number] Use TENS [facility] ELECTRODES 1-22 unit at ity of (TENS UNITS 00:00: least 2 [place] as ELECTRODES) 00 times a Medic al 2X2 " Pads day as Branch needed for pain. TENS UNIT 2016-03 Yes [id number] Use TENS [facility] ELECTRODES 1-22 unit at ity of (TENS UNITS 00:00: least 2 [place] as ELECTRODES) 00 times a Medic al 2X2 " Pads day as Branch needed for pain. TENS UNIT 2016-03 Yes [id number] Use TENS Univers ELECTRODES 1-22 unit at ity of (TENS UNITS 00:00: least 2 [place] as ELECTRODES) 00 times a Medic al 2X2 " Pads day as Branch needed for pain. TENS UNIT 2016-03 Yes [id number] Use TENS [facility] ELECTRODES 1-22 unit at ity of (TENS UNITS 00:00: least 2 [place] as ELECTRODES) 00 times a Medic al 2X2 " Pads day as Branch needed for pain. TENS UNIT 2016-03 Yes [id number] Use TENS [facility] ELECTRODES 1-22 unit at ity of (TENS UNITS 00:00: least 2 [place] as ELECTRODES) 00 times a Medic al 2X2 " Pads day as Branch needed for pain. TENS UNIT 2016-03 Yes [id number] Use TENS [facility] ELECTRODES 1-22 unit at ity of (TENS UNITS 00:00: least 2 [place] as ELECTRODES) 00 times a Medic al 2X2 " Pads day as Branch needed for pain. TENS UNIT 2016-03 Yes [id number] Use TENS [facility] ELECTRODES 1-22 unit at ity of (TENS UNITS 00:00: least 2 [place] as ELECTRODES) 00 times a Medic al 2X2 " Pads day as Branch needed for pain. TENS UNIT 2016-03 Yes [id number] Use TENS [facility] ELECTRODES 1-22 unit at ity of (TENS UNITS 00:00: least 2 [place] as ELECTRODES) 00 times a Medic al 2X2 " Pads day as Branch needed for pain. TENS UNIT 2016- Yes [id number] Use TENS [facility] ELECTRODES 1-22 unit at ity of (TENS UNITS 00:00: least 2 [place] as ELECTRODES) 00 times a Medic al 2X2 " Pads day as Branch needed for pain. TENS UNIT 2016- Yes [id number] Use TENS [facility] ELECTRODES 1-22 unit at ity of (TENS UNITS 00:00: least 2 [place] as ELECTRODES) 00 times a Medic al 2X2 " Pads day as Branch needed for pain. TENS UNIT 2016-03 Yes [id number] Use TENS [facility] ELECTRODES 1-22 unit at ity of (TENS UNITS 00:00: least 2 [place] as ELECTRODES) 00 times a Medic al 2X2 " Pads day as Branch needed for pain. TENS UNIT 2016-03 Yes [id number] Use TENS [facility] ELECTRODES 1-22 unit at ity of (TENS UNITS 00:00: least 2 [place] as ELECTRODES) 00 times a Medic al 2X2 " Pads day as Branch needed for pain. TENS UNIT 2016-03 Yes [id number] Use TENS [facility] ELECTRODES 1-22 unit at ity of (TENS UNITS 00:00: least 2 [place] as ELECTRODES) 00 times a Medic al 2X2 " Pads day as Branch needed for pain. TENS UNIT 2016-03 Yes [id number] Use TENS [facility] ELECTRODES 1-22 unit at ity of (TENS UNITS 00:00: least 2 [place] as ELECTRODES) 00 times a Medic al 2X2 " Pads day as Branch needed for pain. TENS UNIT 2016-03 Yes [id number] Use TENS [facility] ELECTRODES 1-22 unit at ity of (TENS UNITS 00:00: least 2 [place] as ELECTRODES) 00 times a Medic al 2X2 " Pads day as Branch needed for pain. TENS UNIT 2016- Yes [id number] Use TENS [facility] ELECTRODES 1-22 unit at ity of (TENS UNITS 00:00: least 2 [place] as ELECTRODES) 00 times a Medic al 2X2 " Pads day as Branch needed for pain. TENS UNIT 2016- Yes [id number] Use TENS [facility] ELECTRODES 1-22 unit at ity of (TENS UNITS 00:00: least 2 [place] as ELECTRODES) 00 times a Medic al 2X2 " Pads day as Branch needed for pain. atorvastati 2016-03 No Notes: [place] n 0 (Same As: l 02:00: Lipitor) Metformin 2016-03 Yes 500 mg, Memor ia 0-01 PO, Daily, l 00:31: 0 Refill(s) sertraline 2016-03 Yes 100 mg = 1 M emoria 100 mg oral 0- tab, PO, l tablet 00:31: Daily, 0 Refill(s) influenza No Notes: Memori a virus 12-16 (Same as: l vaccine, 17:00: Fluzone Mauricio n inactivated 00 Quadrivale nt, Fluarix Quadrivale nt) For 3 years of age and older (0.5 mL IM) Shake well before use influenza No Notes: Memori a virus 12-16 (Same as: l vaccine, 14:00: Fluzone Mauricio n inactivated 00 Quadrivale nt, Fluarix Quadrivale nt) For 3 years of age and older (0.5 mL IM) Shake well before use Labetalol No 160 mm Hg Me moria 12-16 l 10:05: Dextrose No 12.5 gm, Memor ia 50% Syringe 12-16 25 mL, l 10:01: Route: IVP, Drug Form: INJ, Dosing Weight 63.636, kg, PRN, PRN Blood Glucose Results, Start date: 12/16/16 5:01:00 CDT, Duration: 30 day, Stop date: 01/15/17 5:00:00 CDT Insulin No 60 units) [place] Lispro 12-16 WASTE: F/P l 10:01: - Black; E - Municipal Trash Bin Stable for 28 days at room temperatur e. Expires in days from ____Date Glucagon No 1 mg, Memoria 12-16 Route: IM, l 10:01: Drug form: PDR/INJ, PRN, Dosing Weight 63.636, kg, PRN Blood Glucose Results, Start date: 12/16/16 5:01:00 CDT, Duration: 30 day, Stop date: 01/15/17 5:00:00 CDT Lactated No 1,000 mL, [place] Ringers 12-16 Rate: 100 l 1,000 mL 09:17: ml/hr, Infuse over: 10 hr, Route: IV, Dosing Weight 63.636 kg, Total Volume: 1,000, Priority: STAT, Start date: 12/16/16 4:17:00 CDT, Duration: 12 hr, Stop date: 12/16/16 16:16:00 CDT Zofran No Notes: Memoria 12-16 (Same as: l 06:14: Zofran) MEDICATION WASTE Product Size: 4 mg Product Wasted: ___ mg potassium No Notes: Memori a chloride 12-16 (Same as: l 05:00: Potassium Chloride) Potassium No 60 mEq, Mem[place] Chloride 12-16 Route: PO, l 1.33 MEQ/ML 03:34: Drug form: Mobile Oral 00 LIQ, ONCE, Solution Dosing Weight 63.636, kg, Priority: STAT, Start date: 12/15/16 22:34:00 CDT, Stop date: 12/15/16 22:34:00 CDT Tylenol No 1,000 mg, Memor ia 12-16 Route: PO, l 02:28: ONCE, Dosing Weight 63.636, kg, Start date: 12/15/16 21:28:00 CDT, Stop date: 12/15/16 21:28:00 CDT metformin Yes [id number] 500mg Take 1 [facility] 500 mg 9-08 tablet by ity o f 24 hr 00:00: mouth [place] tablet 00 daily with Medical breakfast. [place] metformin Yes [id number] 500mg Take 1 [facility] ER 500 mg 9-08 tablet by ity o f 24 hr 00:00: mouth [place] tablet 00 daily with Medical breakfast. [facility] metformin Yes [id number] 500mg Take 1 [facility] ER 500 mg 9-08 tablet by ity o f 24 hr 00:00: mouth [place] tablet 00 daily with Medical breakfast. [facility] metformin Yes [id number] 500mg Take 1 [facility] ER 500 mg 9-08 tablet by ity o f 24 hr 00:00: mouth [place] tablet 00 daily with Medical breakfast. [facility] metformin Yes [id number] 500mg Take 1 [facility] ER 500 mg 9-08 tablet by ity o f 24 hr 00:00: mouth [place] tablet 00 daily with Medical breakfast. [facility] metformin Yes [id number] 500mg Take 1 [facility] ER 500 mg 9-08 tablet by ity o f 24 hr 00:00: mouth [place] tablet 00 daily with Medical breakfast. [facility] metformin Yes [id number] 500mg Take 1 [facility] ER 500 mg 9-08 tablet by ity o f 24 hr 00:00: mouth [place] tablet 00 daily with Medical breakfast. [facility] metformin Yes [id number] 500mg Take 1 [facility] ER 500 mg 9-08 tablet by ity o f 24 hr 00:00: mouth [place] tablet 00 daily with Medical breakfast. [facility] metformin Yes [id number] 500mg Take 1 [facility] ER 500 mg 9-08 tablet by ity o f 24 hr 00:00: mouth [place] tablet 00 daily with Medical breakfast. [facility] metformin Yes [id number] 500mg Take 1 [facility] ER 500 mg 9-08 tablet by ity o f 24 hr 00:00: mouth [place] tablet 00 daily with Medical breakfast. [facility] metformin Yes [id number] 500mg Take 1 [facility] ER 500 mg 9-08 tablet by ity o f 24 hr 00:00: mouth [place] tablet 00 daily with Medical breakfast. [facility] metformin Yes [id number] 500mg Take 1 [facility] ER 500 mg 9-08 tablet by ity o f 24 hr 00:00: mouth [place] tablet 00 daily with Medical breakfast. [facility] metformin Yes [id number] 500mg Take 1 [facility] ER 500 mg 9-08 tablet by ity o f 24 hr 00:00: mouth [place] tablet 00 daily with Medical breakfast. [facility] metformin Yes [id number] 500mg Take 1 [facility] ER 500 mg 9-08 tablet by ity o f 24 hr 00:00: mouth [place] tablet 00 daily with Medical breakfast. [facility] metformin Yes [id number] 500mg Take 500 [facility] (GLUCOPHAGE 9-08 mg by [place] -XR) 500 MG 00:00: mouth. of XR tablet 00 Medicin e metformin Yes [id number] 500mg Take 500 [facility] (GLUCOPHAGE 9-08 mg by [place] -XR) 500 MG 00:00: mouth. of XR tablet 00 Medicin e metformin 2019- No [id number] 500mg Take 1 [facility] ER 500 mg 11-24 tablet by ity of 24 hr 00:00: 00:00 mouth [place] tablet 00 :00 daily with Medical breakfast. [facility] metformin 2019- No [id number] 500mg Take 1 [facility] ER 500 mg 11-24 tablet by ity of 24 hr 00:00: 00:00 mouth [place] tablet 00 :00 daily with Medical breakfast. [facility] sertraline Yes 100 mg = 2 M emoria 50 mg oral 4-25 tab, PO, l tablet 14:06: Daily, 0 Demar 00 Refill(s) lactobacill Yes 1 tab, PO, Memoria us 4-25 Daily, 0 l acidophilus 14:06: Refill(s) H ermann 00 Glipizide 5 Yes 5 mg = 1 Me moria MG Oral 4-25 tab, PO, l Tablet 14:06: Q5PM, 0 Mobile 00 Refill(s) Baclofen Yes 317.8 mcg, Mem oria 4-25 INTRATHECA l 14:06: L, Mobile 00 Continuous , PRN Other -See Comment, 0 Refill(s) donepezil Yes 10 mg = 1 Mem oria 10 mg oral 4-25 tab, PO, l tablet 14:06: Bedtime, 0 Chiquita nn 00 Refill(s) cetirizine Yes 10 mg = 1 Me moria 10 mg oral 4-25 tab, PO, l tablet 14:06: Bedtime, 0 Chiquita nn 00 Refill(s) bisacodyl Yes 10 mg = 1 Mem oria 10 mg 4-25 supp, HI, l rectal 14:06: Bedtime, Mobile suppository 00 PRN Constipati on, 0 Refill(s) atorvastati Yes 10 mg = Mem oria n 20 mg 4-25 0.5 tab, l oral tablet 14:06: PO, Mauricio n 00 Bedtime, 0 Refill(s) amphetamine Yes 10 mg = 1 M emoria -dextroamph 4-25 tab, PO, l etamine 10 14:06: QAM, 0 Chiquita nn mg oral 00 Refill(s) tablet Amoxicillin Yes 1 tab, PO, Memoria 875 MG / 4-25 Q12H, 0 l Clavulanate 14:06: Refill(s) H ermann 125 MG Oral 00 Tablet [Augmentin 875-mg] acetaminoph Yes 100.4 F, M emoria en 325 mg 4-25 0 l oral tablet 14:06: Refill(s) H ermann 00 zolpidem 5 Yes 5 mg = 1 Mem oria mg oral 4-25 tab, PO, l tablet 14:06: Bedtime, Demar 00 titrate off if sleep stable, 0 Refill(s) tamsulosin Yes 0.8 mg = 2 M emoria 0.4 mg oral 4-25 cap, PO, l capsule 14:06: After Demar 00 Breakfast, 0 Refill(s) senna 8.6 Yes 34.4 mg = Mem oria mg oral 4-25 4 tab, PO, l tablet 14:06: Daily, 0 Mobile 00 Refill(s) Nystatin Yes 1 appl, Memori a [id number] 4-25 TOP, l UNT/ML 14:06: QSHIFT, 0 Mauricio n Topical 00 Refill(s) Cream modafinil Yes 100 mg = 1 Me moria 100 mg oral 4-25 tab, PO, l tablet 14:06: BID-12, Chiquita nn 00 0 Refill(s) Metformin Yes PO, BID, 0 Me moria hydrochlori 4-25 Refill(s) l de 1000 MG 14:06: Mobile Oral Tablet 00 melatonin 3 Yes 6 mg, PO, M emoria mg oral 4-25 Bedtime, 0 l tablet 14:06: Refill(s) Mauricio n 00 Glipizide No Notes: Memori a 4-21 (Same as: l 22:00: Glucotrol) Mobile 00 30 min before meals. lactobacill No Notes: [place] us 21 High l acidophilus 13:30: Potency Her adams 00 Chewable lactobabac illus acidophilu s 1 billion bacteria/t ablet lidocaine No Notes: Memori a 1% 4-20 (Same as: l preservativ 22:11: Xylocaine) Mobile e-free 00 injectable solution triamcinolo No Notes: [place] ne 4-20 (Same As: l acetonide 22:11: Kenalog-40 He rmann 00 ) MEDICATION WASTE Product Size: 40 mg Product Wasted: ___ mg Metformin No Notes: Memori a hydrochlori 4-20 (Same as: l de 1000 MG 13:00: Glucophage H ermann Oral Tablet 00 ) Take with meal Fluticasone No Notes: [place] propionate 4-20 (Same as: l 0.05 02:00: Flonase) Mobile MG/ACTUAT 00 Metered Dose Nasal [place] [Flonase] Amoxicillin No Notes: [place] 875 MG / 4-19 With food. l Clavulanate 18:00: (Same as: H ermann 125 MG Oral 00 Augmentin Tablet 875) [Augmentin 875-mg] Oxymetazoli No Notes: [place] ne 4-19 (Same as: l hydrochlori 14:12: Afrin) Herm shelton de 0.5 00 MG/ML Nasal [place] [Afrin] Zyrtec No Notes: Memoria 4-19 (Same As: l 02:00: Zyrtec) Mobile 00 Nasal Moist No Notes: [place] 0.65% 4-18 (Same as: l solution 14:00: [place], Mobile 00 Deep Sea Nasal [place]). Nasal Mist No 2 spray, Mem oria 0.05% nasal 4-18 Route: l spray 02:00: NASAL, Mobile 00 Dosing Weight 120.455, kg, BID, Start date: 07/03/16 21:00:00 CDT, Duration: 30 day, Stop date: 08/02/16 8:30:00 CDT Nasal Moist No Notes: [place] 0.65% 4-17 (Same as: l solution 19:00: [place], Demar 00 Deep Sea Nasal [place]). Metformin No Notes: Memori a 4-17 (Same as: l 13:00: Glucophage Mobile ) Take with meal guaiFENesin No Notes: [place] liquid 100 4-16 (Same as: l mg/ 5 mL 23:00: Robitussin Her adams ) Tylenol No Notes: Do Memor ia 4-13 not exceed l 18:22: 4 gm/day. Demar (Same as: Tylenol) Adderall No Notes: Memoria 4-13 Non-Formul l 11:30: daryl drug. Demar 00 Dextroamph etamine and Amphetamin e derivative s. (Same as: Adderall) Aricept No Notes: Memoria 4-13 (Same as: l 02:00: Aricept) Mobile Propranolol No Notes: [place] 4-11 Give with l 02:00: food. Demar 00 (Same as: Inderal) Metformin No Notes: Memori a 4-10 (Same as: l 22:00: Glucophage Demar ) Take with meal Albuterol No Notes: Memori a 0.833 MG/ML 4-10 (Same as: l / 15:32: Duoneb) Mobile Ipratropium 00 [place] 0.167 MG/ML Inhalant Solution [DuoNeb] Acetaminoph No Notes: Max Memoria en 4-07 acetaminop l 17:00: hen 4000 Demar 00 mg/day (4 gm/day). (Same as: Tylenol Extra Strength) Flomax No Notes: Memoria 4-07 (Same As: l 13:30: Flomax) Demar "Do Not Crush" Albuterol No Notes: Memori a 0.833 MG/ML 4-07 (Same as: l / 00:30: Duoneb) Mobile Ipratropium 00 [place] 0.167 MG/ML Inhalant Solution magnesium No Notes: Memori a citrate 4-06 (Same as: l 58.2 MG/ML 19:03: Citrate of H ermann Oral Magnesia) Solution Concentrat ion: 1.745 gm / 30 mL sennosides, No Notes: [place] [facility] 4-06 (Same as: l 13:30: Senokot) Mobile 00 Nystatin No Notes: Memoria [id number] -06 (Same l UNT/ML 06:00: as:Mycosta Chiquita nn Topical 00 tin Cream Nilstat) for external use only. Biofreeze No 1 appl, Memor ia 4-06 Route: l 02:00: TOP, TID, Demar Start date: 06/21/16 21:00:00 CDT, Duration: 30 day, Stop date: 07/21/16 13:00:00 CDT Docusate No Notes: Memoria Sodium 100 - (Same as: l MG Oral 02:00: Colace) Demar Capsule 00 (Do Not [Colace] Crush) atorvastati No Notes: [place] n -06 (Same As: l 02:00: Lipitor) Mobile 00 Propranolol No Notes: [place] 4-06 Give with l 02:00: food. Demar 00 (Same as: Inderal) Insulin, No Notes: Memoria Aspart, 05 Roll in l Human 22:13: palms of Mobile 00 hands gently; Do not shake vigorously . (Same as: NovoLOG) "single patient use only" WASTE: F/P - Black; E - Municipal Trash Bin Stable for 28 days at room temperatur e. Expires in days from ____Date Dextrose No 25 gm, 50 [place] 50% Syringe 4-05 mL, Route: l 22:13: IVP, Drug Form: INJ, Dosing Weight 120.591, kg, PRN, PRN Blood Glucose Results, Start date: 06/21/16 17:13:00 CDT, Duration: 60 day, Stop date: 08/20/16 17:12:00 CDT Glucagon No 1 mg, Memoria 05 Route: IM, l 22:13: Drug form: Mobile 00 PDR/INJ, PRN, Dosing Weight 120.591, kg, PRN Blood Glucose Results, Start date: 06/21/16 17:13:00 CDT, Duration: 60 day, Stop date: 08/20/16 17:12:00 CDT Glucagon 2017 No 1 mg, Memoria 4-05 Route: IM, l 17:57: Drug form: Demar 00 PDR/INJ, PRN, Dosing Weight 120.591, kg, PRN Blood Glucose Results, Start date: 06/21/16 12:57:00 CDT, Duration: 30 day, Stop date: 07/21/16 12:56:00 CDT Dextrose No 25 gm, 50 [place] 50% Syringe 4-05 mL, Route: l 17:57: IVP, Drug Form: INJ, Dosing Weight 120.591, kg, PRN, PRN Blood Glucose Results, Start date: 06/21/16 12:57:00 CDT, Duration: 30 day, Stop date: 07/21/16 12:56:00 CDT Provigil No Notes: Memoria 4-05 (Same l 17:00: as:Provigi Mobile l) Milk of No Notes: Memoria Magnesia 4-05 (Same as: l 15:55: Milk of Demar 00 Magnes[place], MOM) Sertraline No Notes: Memor ia 4-05 (Same as: l 13:30: Zoloft) Mobile 00 gabapentin No Notes: Memor ia 300 MG Oral 05 (Same as: l Capsule 02:00: Neurontin) Herm shelton 00 Propranolol No Notes: [place] 4-05 Take with l 02:00: food. Do Mobile not crush or chew. (Same as: Inderal [place]) Melatonin 3 No Notes: [place] MG Extended 05 (Same as: l Release 02:00: Melatonin) Herm shelton Tablet 00 Enoxaparin No 40 mg, Memor ia 4-04 Route: l 23:00: SUB-Q, Demar Drug form: INJ, [id number], Dosing Weight 120.591, kg, Start date: 06/20/16 18:00:00 CDT, Duration: 30 day, Stop date: 07/19/16 18:00:00 CDT saliva No Notes: Memoria substitutes 4-04 Same as l 22:35: Biotene Demar 00 Oral Balance Ambien No Notes: Memoria - (Same As: l 22:32: Ambien) Mobile 00 Baclofen No Notes: For Mem oria 06-20 INTRATHECA l 22:30: L use Mobile 00 only. Preservati ve free. (Same As: Lioresal, Gablofen). tramadol No Notes: Not Mem oria hydrochlori 06-20 to exceed l de 50 MG 22:30: 400mg/day. Her adams Oral Tablet 00 (Same As: Ultram) Levetiracet No Notes: [place] am 06-20 Same as l 22:17: Keppra Mix Mobile 00 with 100 mL NS, LR or D5W MEDICATION WASTE Product Size: 500 mg Product Wasted: ___ mg Midazolam No 40 kg Memori a 06-20 l 22:17: Demar 00 Melatonin No Notes: Memori a 06-20 (Same as: l 22:17: Melatonin) Demar 00 Acetaminoph No Notes: Max Memoria en 06-20 acetaminop l 22:17: hen 4000 Mobile 00 mg/day (4 gm/day). (Same as: Tylenol Extra Strength) Saline No Notes: Memoria Flush 0.9% 06-20 (Same as: l 22:17: BD Mobile 00 Posiflush) Bisacodyl No Notes: Memori a 06-20 (Same As: l 22:17: Dulcolax, Mobile 00 Bisco-Lax) tramadol Yes 50 mg = 1 [place] hydrochlori 2-14 tab, PO, l de 50 MG 14:59: Q6H, PRN Chiquita nn Oral Tablet 00 Pain, 0 Refill(s) propranolol Yes 60 mg = 1 M emoria 60 mg oral 2-14 cap, PO, l capsule, 14:57: Daily, # Chiquita nn extended 00 30 cap, 0 release Refill(s) tramadol Yes 50 mg = 1 [place] hydrochlori 2-07 tab, PO, l de 50 MG 23:23: BID, X 15 Herm shelton Oral Tablet 00 day, # 30 tab, 0 Refill(s) Promethazin Yes 12.5 mg = M emoria e 04-25 1 tab, PO, l Hydrochlori 23:23: Q6H, PRN He rmshelton de 12.5 MG 00 Nausea & Oral Tablet Vomiting, [Phenergan] X 7 day, # 28 tab, 0 Refill(s), Pharmacy: [facility] [id number] Phenergan No Notes: Do Mem oria 04-25 not give l 21:29: IV push. Mobile 00 (Same as: Phenergan) Acetaminoph No Notes: [place] en 325 MG / 04-25 (Same as: l Hydrocodone 21:29: Platter Chiquita nn Bitartrate 00 325/5) Do 5 MG Oral not exceed Tablet 4gm/day of [Platter acetaminop 5/325] hen. Acetaminoph Yes 1 - 2 tab, Memoria en 300 MG / 14 PO, Q6H, l Codeine 03:25: PRN Pain, Chiquita nn Phosphate 00 X 4 day, # 60 MG Oral 32 tab, 0 Tablet Refill(s) [Tylenol with Codeine #4] Acetaminoph Yes Notes: Do M emoria en 325 MG / 14 not exceed l Hydrocodone 03:24: 4gm/day of Mobile Bitartrate 00 acetaminop 10 MG Oral hen. (Same Tablet as: Platter [Platter 325/10) 10/325] Ketamine Yes 100 mg, 10 Mem oria 1-14 mL, Route: l 00:19: IVP, Drug Demar 00 form: INJ, ONCE, Dosing Weight 115.455, kg, Priority: STAT, Start date: 03/31/16 18:19:00 CAN WASHER, Stop date: 03/31/16 18:19:00 CAN WASHER Propofol Yes Notes: If [place] 1-14 Diprivan - l 00:19: change Demar 00 bottle & tubing every 12 hr Per state nursing law propofol can only be given by a nurse if patient is intubated or being intubated (unless the nurse is a SPOUT TENDER). Same as: Diprivan Morphine No Notes: Memoria 1-13 (Same l 23:43: as:MORPhin Mobile 00 e Sulfate) Zofran 2017-0 No Notes: Memoria 03-31 (Same as: l 23:43: Zofran) Demar 00 MEDICATION WASTE Product Size: 4 mg Product Wasted: ___ mg Acetaminoph 2015-03 Yes 1 tab, PO, Memoria en 300 MG / 0-13 Q8H, PRN l Codeine 23:42: Pain, X 7 Chiquita nn Phosphate 00 day, # 21 30 MG Oral tab, 0 Tablet Refill(s) [Tylenol with Codeine #3] Baclofen 2015-03 Yes 166.67 Memoria 0.5 MG/ML 0-13 mcg, l Injectable 23:05: INTRATHECA H ermann Solution 00 L, Continuous , 0 Refill(s) Ketoconazol 2015-03 Yes 1 appl, Mem oria e 20 MG/ML 0-13 TOP, Every l Medicated 23:05: Other Day, He anoop Shampoo 00 X 30 day, [Nizoral] # 120 mL, 0 Refill(s) Docusate 2015-03 Yes 100 mg = 1 Mem oria Sodium 100 0-13 cap, PO, l MG Oral 23:05: BID, # 60 Chiquita nn Capsule 00 cap, 0 [Colace] Refill(s) cetirizine 2015-03 Yes 5 mg = 0.5 M emoria 10 mg oral 0-13 tab, PO, l tablet 23:05: Daily, X Mobile 00 30 day, # 15 tab, 0 Refill(s) Trazodone 2015-03 Yes 50 mg = 1 Mem oria Hydrochlori 0-13 tab, PO, l de 50 MG 23:05: Bedtime, # Her adams Oral Tablet 00 30 tab, 0 Refill(s) sertraline 2015-03 Yes 100 mg = 2 M emoria 50 mg oral 0-13 tab, PO, l tablet 23:05: Bedtime, # Chiquita nn 00 60 tab, 0 Refill(s) saliva 2015-03 Yes 15-30 mL, Memori a substitutes 0-13 S&SPIT, l oral 23:05: Daily, PRN Mobile solution 00 Other -See Comment | dry mouth, # 1 tube, 0 Refill(s) metoprolol 2015-03 Yes 50 mg = 1 Me moria 50 mg oral 0-13 tab, PO, l tablet, 23:05: BID, # 60 Chiquita nn extended 00 tab, 0 release Refill(s) gabapentin 2015-03 Yes 300 mg = 1 M emoria 300 MG Oral 0-13 cap, PO, l Capsule 23:05: TID, # 90 Chiquita nn 00 cap, 0 Refill(s) ocular 2015-03 Yes 1 drp, Memoria lubricant 0-13 Each l solution 23:05: Affected Chiquita nn 00 Eye, TID, # 30 mL, 0 Refill(s) bisacodyl 2015-03 Yes 10 mg = 1 Mem oria 10 mg 0-13 supp, PO, l rectal 23:05: Daily, X Demar suppository 00 30 day, # 30 supp, 0 Refill(s) acetaminoph 2015-03 Yes 100.4 F, M emoria en 325 mg 0-13 X 30 day, l oral tablet 23:05: # 180 tab, Demar 00 0 Refill(s) Bacitracin 2015-03 No 1 appl, [place] 0-10 Route: l 23:00: TOP, Q6H, Demar Drug form: OINT, Start date: 12/27/15 18:00:00 CDT, Duration: 30 day, Stop date: 01/26/16 12:00:00 CAN WASHER Zyrtec 2015-03 No Notes: Memoria 0-10 (Same As: l 13:30: Zyrtec) Demar Tears 2015-03 No 1 drp, Memoria Naturale 0-09 Route: l 18:00: Each Mobile Affected Eye, TID, Drug form: SOLN, Start date: 12/26/15 13:00:00 CDT, Duration: 30 day, Stop date: 01/25/16 8:30:00 CAN WASHER Ketoconazol 2015-03 No Notes: [place] e 20 MG/ML 0-07 Non-Formul l Medicated 14:00: daryl Drug Herm shelton Shampoo 00 (Same [Nizoral] as:Nizoral Topical) Zoloft 2015-03 No Notes: Memoria 0-06 (Same as: l 02:00: Zoloft) Demar 00 Terbinafine 2015-03 No Notes: [place] hydrochlori 0-03 Same as: l de 10 MG/ML 02:00: LamISIL AT Mobile Topical 00 Cream Tylenol No Notes: Do Memor ia 12-14 not exceed l 02:00: 4 gm/day. (Same as: Tylenol) sennosides, No 1 tab, [place] [facility] 12-10 Route: PO, l 17:00: Drug Form: Mobile TAB, Dosing Weight 111.364, kg, Lunch, Start date: 12/11/15 12:00:00 CDT, Duration: 60 day, Stop date: 02/08/16 12:00:00 CAN WASHER Biotene No Notes: Memoria Oral 12-10 Same as: l Balance 12:00: Biotene with Calcium Non-formul daryl metoprolol No Notes: Memor ia tartrate 12-10 (Same as: l 02:00: Lopressor) Mucinex Max No 2 tab, [place] Strength 12-10 Route: PO, l 02:00: Drug Form: ERTAB, Dosing Weight 65.909, kg, BID, Start date: 12/10/15 21:00:00 CDT, Duration: 60 day, Stop date: 02/08/16 8:30:00 CAN WASHER Docusate No Notes: Memoria Sodium 100 12-10 (Same as: l MG Oral 02:00: Colace) Capsule 00 (Do Not [Colace] Crush) gabapentin No Notes: Memor ia 300 MG Oral 12-10 (Same as: l Capsule 02:00: Neurontin) Herm shelton Zoloft No Notes: Memoria 12-10 (Same as: l 02:00: Zoloft) Trazodone No Notes: Memori a Hydrochlori 12-10 (Same As: l de 50 MG 02:00: Desyrel) Chiquita nn Oral Tablet 00 Pyridium No Notes: Memoria 12-10 Give with l 00:30: meals. (Same as: Pyridium) lidocaine No Notes: Memori a topical 2% 12-10 (Same as: l gel with 00:21: Xylocaine Herm shelton applicator 00 Jelly, Anestacon) baclofen No Notes: For Mem oria 12-09 INTRATHECA l 22:30: L use only. Preservati ve free. (Same As: Lioresal, Gablofen). Midazolam No 40 kg Memori a 12-09 l 22:13: Acetaminoph No Notes: Do M emoria en 325 MG / 12-09 not exceed l Hydrocodone 22:13: 4gm/day of Mobile Bitartrate 00 acetaminop 10 MG Oral hen. (Same Tablet as: Platter [Platter 325/10) 10325] Dulcolax No Notes: Memoria Laxative 12-09 (Same As: l 22:13: Dulcolax, Bisco-Lax) Milk of No Notes: Memoria Magnesia 12-09 (Same as: l 22:13: Milk of [place]es[place], MOM) Saline No Notes: Memoria Flush 0.9% 12-09 (Same as: l 22:13: BD Posiflush) Levetiracet No Notes: [place] am 12-09 Same as l 22:13: Keppra Mix with 100 mL NS, LR or D5W MEDICATION WASTE Product Size: 500 mg Product Wasted: ___ mg Tylenol No 100.4 F, Memor ia 12-09 Start l 22:13: date: 12/10/15 17:13:00 CDT, Duration: 60 day, Stop date: 02/08/16 17:12:00 CAN WASHER Trazodone No 25 mg, Memori a 12-09 Route: PO, l 22:13: Drug form: TAB, Bedtime, Dosing Weight 111.364, kg, PRN Insomnia, Start date: 12/10/15 17:13:00 CDT, Duration: 60 day, Stop date: 02/08/16 17:12:00 CAN WASHER Pyridium No Notes: Memoria 12-09 Give with l 17:00: meals. Mobile 00 (Same as: Pyridium) Phenazopyri Yes 100 mg, Mem oria dine 12-09 PO, l hydrochlori 14:49: TID-After H ermann de 100 MG 00 Meals, PRN Oral Tablet urethral [Pyridium] pain, 0 Refill(s) gabapentin No Notes: Memor ia 300 MG Oral 12-09 (Same as: l Capsule 14:00: Neurontin) Herm shelton influenza No Notes: Memori a virus 12-09 (Same as: l vaccine, 14:00: Fluzone Mauricio n inactivated 00 Quadrivale nt, Fluarix Quadrivale nt) For 3 years of age and older (0.5 mL IM) Shake well before use Dilaudid No Notes: Memoria 12-09 (Same as: l 05:17: Dilaudid) Trazodone No Notes: Memori a Hydrochlori 12-09 (Same As: l de 50 MG 02:00: Desyrel) Chiquita nn Oral Tablet 00 Saline No Notes: Memoria Flush 0.9% 12-09 (Same as: l 02:00: BD Demar 00 Posiflush) Docusate No Notes: Memoria 12-09 (Same as: l 02:00: Colace) (Do Not Crush) sennosides, No Notes: [place] [facility] 12-09 (Same as: l 02:00: Senokot) Dilaudid No Notes: Memoria 12-09 (Same as: l 00:17: Dilaudid) ceFAZolin No Notes: Memori a (SCIP) + 12-08 (Same As: l sodium 23:00: Ancef, Mobile chloride 00 Kefzol) 0.9% INJ Cefazolin 100 mL FOR IV SET ONLY MEDICATION WASTE Product Size: 1000 mg Product Wasted: _0__ mg Morphine No Notes: Memoria 12-08 (Same l 16:52: as:MORPhin Mobile 00 e Sulfate) Acetaminoph No Notes: Max Memoria en 12-08 acetaminop l 16:52: hen 4000 Demar 00 mg/day (4 gm/day). (Same as: Tylenol Extra Strength) Hydromorpho No Notes: [place] ne 12-08 Same as: l 16:52: Dilaudid Naloxone No Notes: Memoria 12-08 Same as l 16:52: Narcan Flumazenil No Notes: Memor ia 12-08 (Same as: l 16:52: Romazicon) Ondansetron No 4 mg, Memor ia 12-08 Route: l 16:52: IVP, ONCE, Dosing Weight 111.364, kg, PRN Nausea & Vomiting, Start date: 12/09/15 11:52:00 CDT Saline No Notes: Memoria Flush 0.9% 12-08 (Same as: l 16:23: BD Posiflush) Ondansetron No Notes: [place] 12-08 (Same as: l 16:23: Zofran) MEDICATION WASTE Product Size: 4 mg Product Wasted: ___ mg Sodium No 1,000 mL, Memori a Chloride 12-08 Rate: 75 l 0.154 16:23: ml/hr, MEQ/ML 00 Infuse Injectable over: 13.3 Solution hr, Route: IV, Dosing Weight 111.364 kg, Total Volume: 1,000, Start date: 12/09/15 11:23:00 CDT, Duration: 30 day, Stop date: 01/08/16 11:22:00 CDT Acetaminoph No Notes: [place] en 325 MG / 12-08 (Same as: l Hydrocodone 16:23: Platter Chiquita nn Bitartrate 00 325/5) Do 5 MG Oral not exceed Tablet 4gm/day of acetaminop hen. Morphine No Notes: Memoria 12-08 (Same l 16:23: as:MORPhin e Sulfate) ceFAZolin No 3 gm, Memoria (SCIP) 12-08 Route: l 14:26: IVP, Drug form: INJ, ONCE, Dosing Weight 111.364, kg, Start date: 12/09/15 9:26:00 CDT, Stop date: 12/09/15 9:26:00 CDT, Cardiac procedures only influenza No Notes: Memori a virus 12-08 (Same as: l vaccine, 14:00: Fluzone Mauricio n inactivated 00 Quadrivale nt, Fluarix Quadrivale nt) For 3 years of age and older (0.5 mL IM) Shake well before use Trazodone No 25 mg, PO, Me moria 12-07 Bedtime, 0 l 16:13: Refill(s) Mobile 00 midazolam 5 Yes IM, ONCE, M emoria mg/mL 12-07 PRN l injectable 16:11: Agitation, H ermann solution 00 0 Refill(s) levETIRAcet Yes IV, PRN Mem oria am 1500 12-07 Seizure, 0 l mg/100 16:11: Refill(s) Mauricio n mL-NaCl 00 0.54% intravenous solution Trazodone Yes 50 mg = 1 Mem oria Hydrochlori 12-07 tab, PO, l de 50 MG 16:04: Bedtime, 0 Her adams Oral Tablet 00 Refill(s) Senna-gen Yes 17.2 mg = Mem oria 8.6 mg oral 12-07 2 tab, PO, l tablet 16:04: Lunch, # Demar 00 100 tab, 0 Refill(s) Biotene Yes Daily, 0 Memori a Mouthwash 12-07 Refill(s) l oral 16:03: Mobile solution 00 metoprolol Yes 50 mg = 1 Me moria 50 mg oral 12-07 tab, PO, l tablet, 15:48: BID, 0 Demar extended 00 Refill(s) release Zofran No Notes: Memoria 12-06 (Same as: l 16:31: Zofran) Mobile 00 Biotene No Notes: Memoria Oral 12-05 Same as: l Balance 12:00: Biotene Mobile 00 with Calcium Non-formul daryl sennosides, No Notes: [place] [facility] 12-03 (Same as: l 17:00: Senokot) Mobile 00 Trazodone No Notes: Memori a 11-25 (Same As: l 18:54: Desyrel) Botulinum No Notes: "TO Me moria Toxin Type 11-25 BE l A 17:00: RECONSTITU Demar 00 YANELY AND ADMINISTER ED ONLY BY A PHYSICIAN" Reconstitu te with preservati ve free NS only. Stability = 4 hours after reconstitu tion. (Same As: Botox) WASTE: F/P - Red; E -Red Trazodone No Notes: Memori a Hydrochlori 11-23 (Same As: l de 50 MG 02:00: Desyrel) Chiquita nn Oral Tablet 00 Midazolam No 40 kg Memori a 11-22 l 16:20: Mobile Botulinum No Notes: "TO Me moria Toxin Type 11-18 BE l A 20:00: RECONSTITU YANELY AND ADMINISTER ED ONLY BY A PHYSICIAN" Reconstitu te with preservati ve free NS only. Stability = 4 hours after reconstitu tion. (Same As: Botox) WASTE: F/P - Red; E -Red Baclofen No Notes: [facility] 11-18 (Same As: l 13:30: Lioresal) Mederma No 1 appl, [facility] 11-12 Route: l 02:00: TOP, Dosing Weight 111.364, kg, BID, Start date: 11/12/15 21:00:00 CDT, Duration: 30 day, Stop date: 12/12/15 8:30:00 CDT metoprolol No Notes: [facility] ia tartrate 11-12 (Same as: l 02:00: Lopressor) Tylenol No Notes: Do Memor ia 11-11 not exceed l 16:57: 4 gm/day. (Same as: Tylenol) Dulcolax No Notes: [facility] Laxative 11-11 (Same As: l 16:48: Dulcolax, Bisco-Lax) baclofen No Notes: For Mem oria 11-10 INTRATHECA l 00:00: L use only. Preservati ve free. (Same As: Lioresal) Tylenol No 100.4 F, [facility] 11-09 Start l 12:33: date: Mobile 11/10/15 7:33:00 CDT, Duration: 30 day, Stop date: 12/10/15 7:32:00 CDT Acetaminoph No Route: PO, Memoria en 325 MG / 11-09 Drug Form: l Hydrocodone 05:00: TAB, Mauricio n Bitartrate 00 Dosing 10 MG Oral Weight Tablet 65.909, [Platter kg, Q6H, ] Start date: 11/10/15 0:00:00 CDT, Duration: 30 day, Stop date: 12/09/15 18:00:00 CDT Lorazepam No Notes: Memori a -24 (Same as: l 03:04: Ativan) Levetiracet No Notes: [place] am 11-09 Same as l 03:04: Keppra Mix with 100 mL NS, LR or D5W MEDICATION WASTE Product Size: 500 mg Product Wasted: ___ mg Saline No Notes: Memoria Flush 0.9% 11-09 (Same as: l 03:04: BD Posiflush) Milk of No Notes: Memoria Magnesia 24 (Same as: l 03:04: Milk of Magnesia, MOM) Dulcolax No Notes: Memoria Laxative 24 (Same As: l 02:27: Dulcolax, Demar 00 Bisco-Lax) Bisacodyl No Notes: Memori a 24 (Same As: l 02:05: Dulcolax, Demar 00 Bisco-Lax) Acetaminoph No Notes: Do M emoria en 325 MG / 11-09 not exceed l Hydrocodone 02:02: 4gm/day of Demar Bitartrate 00 acetaminop 10 MG Oral hen. (Same Tablet as: Platter [Platter 325/10) 10325] Docusate No Notes: Memoria Sodium 100 24 (Same as: l MG Oral 02:00: Colace) Demar Capsule 00 (Do Not [Colace] Crush) Baclofen No Notes: Memoria 8-24 (Same As: l 02:00: Lioresal) Mucinex Max No Notes: [place] Strength 11-09 (Same as: l 02:00: Guaifenesi n LA, Humibid LA, Mucinex) "Do Not Crush" Take medication with plenty of water. Zoloft No Notes: Memoria 11-09 (Same as: l 02:00: Zoloft) Inderal No Notes: Memoria 11-09 Take with l 02:00: food. Do not crush or chew. (Same as: Inderal LA) gabapentin No Notes: Memor ia 300 MG Oral 11-09 (Same as: l Capsule 02:00: Neurontin) Lovenox No Notes: Memoria 11-09 (Same as: l 02:00: Lovenox) Tylenol No Notes: Do Memor ia 11-09 not exceed l 01:54: 4 gm/day. (Same as: Tylenol) Bisacodyl No 10 mg, Memori a 11-09 Route: HI, l 01:53: Drug form: SUPP, PRN, Dosing Weight 65.909, kg, PRN Constipati on, Start date: 11/09/15 20:53:00 CDT, Duration: 30 day, Stop date: 12/09/15 20:52:00 CDT Acetaminoph No 1-2 tab, Me moria en 325 MG / 11-08 PO, Q4-6H, l Hydrocodone 14:41: PRN Pain, H ermann Bitartrate 00 # 30 tab, 10 MG Oral 0 Tablet Refill(s) [Platter 10/325] tramadol No 50 mg = 1 [place] hydrochlori 8-23 tab, PO, l de 50 MG 14:41: Q6H, PRN Chiquita nn Oral Tablet 00 Pain, # 40 tab, 0 Refill(s) oxyCODONE 5 No 5 mg = 1 Me moria mg oral 11-08 cap, PO, l capsule 14:41: Q6H, PRN Mauricio n 00 Pain, 0 Refill(s) diazepam 5 No 5 mg = 1 Mem oria mg oral 8-23 tab, PO, l tablet 14:41: QID, PRN Demar 00 Anxiety, 0 Refill(s) ondansetron No 4 mg, IV, M emoria 2 mg/mL 11-08 PRN, # 1 l injectable 14:41: ea, 0 Mauricio n solution 00 Refill(s) bisacodyl No 10 mg = 1 Mem oria 10 mg 11-08 supp, HI, l rectal 14:41: PRN, PRN Mobile suppository 00 Constipati on, # 10 supp, 0 Refill(s) gabapentin No 300 mg = 1 M emoria 300 MG Oral 11-07 cap, PO, l Capsule 22:01: TID, # 90 Chiquita nn 00 cap, 0 Refill(s) baclofen 20 No 20 mg = 1 M emoria mg oral - tab, PO, l tablet 22:01: TID, # 270 Chiquita nn 00 tab, 0 Refill(s) Sertraline No 50 mg = 1 Me moria 50 MG Oral - tab, PO, l Tablet 22:01: Bedtime, 0 Chiquita nn [Zoloft] 00 Refill(s) Inderal No 60 mg, PO, [place] 11-07 Bedtime, # l 22:01: 100 tab, 0 Mobile 00 Refill(s) 12 HR No 1,200 mg = Memori a Guaifenesin 11-07 1 tab, PO, l 1200 MG 22:01: BID, 0 Demar Extended 00 Refill(s) Release Tablet [Mucinex] Acetaminoph No 2 tabs, Mem oria en 325 MG / 11-07 PO, Q4H, 0 l Hydrocodone 22:01: Refill(s) H ermann Bitartrate 00 10 MG Oral Tablet [Platter 10/325] 0.4 ML No 40 mg, Memoria Enoxaparin 11-07 SUB-Q, l sodium 100 22:01: Q24H, 0 Herm shelton MG/ML 00 Refill(s) Prefilled Syringe [Lovenox] Lovenox No 0 Memoria 822 Refill(s) l 22:01: Ondansetron No Notes: [place] 08-19 (Same as: l 16:15: Zofran) MEDICATION WASTE Product Size: 4 mg Product Wasted: ___ mg Flumazenil No Notes: Memor ia 08-19 (Same as: l 16:15: Romazicon) Naloxone No Notes: Memoria 08-19 Same as l 16:15: Narcan Labetalol No 10 mg, 2 [place] 08-19 mL, Route: l 16:15: IVP, Drug form: INJ, Q5Min, Dosing Weight 111.364, kg, PRN Elevated BP, Start date: 08/20/15 11:15:00 CDT, Duration: 5 doses or times, Stop date: Limited # of times Hydromorpho No Notes: [place] ne 08-19 Same as: l 16:15: Dilaudid tramadol Yes 50 mg = 1 [place] hydrochlori 03 tab, PO, l de 50 MG 16:04: Q4H, PRN Chiquita nn Oral Tablet 00 Pain, X 10 day, # 60 tab, 0 Refill(s) Cephalexin Yes 500 mg = 1 M emoria 500 MG Oral 03 cap, PO, l Capsule 16:04: QID, X 7 Mauricio n [Keflex] 00 day, # 28 cap, 0 Refill(s) ceFAZolin No 2 gm, Memoria (SCIP) 08-19 Route: l 15:47: IVPB, Drug form: INJ, ONCE, Dosing Weight 111.364, kg, Start date: 08/20/15 10:47:00 CDT, Stop date: 08/20/15 10:47:00 CDT Midazolam No 1 mg, Memoria 08-01 Route: IV, l 13:33: ONCE, Dosing Weight 125, kg, Start date: 08/02/15 8:33:00 CDT, Stop date: 08/02/15 8:33:00 CDT Omnipaque No 150 mL, Memor ia 350 5-16 Route: l 13:33: INTRAARTER Demar 00 IAL, Dosing Weight 125, kg, ONCE, Start date: 08/02/15 8:33:00 CDT, Stop date: 08/02/15 8:33:00 CDT Acetaminoph No Notes: [place] en 325 MG / 5-16 (Same as: l Hydrocodone 12:00: Platter Chiquita nn Bitartrate 00 325/5) Do 5 MG Oral not exceed Tablet 4gm/day of acetaminop hen. Acetaminoph No Notes: Do M emoria en 5-16 not exceed l 12:00: 4 gm/day. Demar 00 (Same as: Tylenol) Sodium No 1,000 mL, Memori a Chloride 5-16 Rate: 50 l 0.154 12:00: ml/hr, Demar MEQ/ML 00 Infuse Injectable over: 20 Solution hr, Route: IV, Dosing Weight 113.636 kg, Total Volume: 1,000, Priority: Routine, Start date: 08/02/15 7:00:00 CDT, Duration: 30 day, Stop date: 09/01/15 6:59:00 CDT Sodium No 1,000 mL, Memori a Chloride 5-16 Rate: 50 l 0.154 10:00: ml/hr, Demar MEQ/ML 00 Infuse Injectable over: 20 Solution hr, Route: IV, Dosing Weight 113.636 kg, Total Volume: 1,000, Priority: Routine, Start date: 08/02/15 5:00:00 CDT, Duration: 30 day, Stop date: 09/01/15 4:59:00 CDT Dexamethaso No Notes: [place] ne -16 Concentrat l 10:00: ion: Mobile 00 4mg/ml Ondansetron No Notes: [place] 5-16 (Same as: l 10:00: Zofran) Mobile 00 MEDICATION WASTE Product Size: 4 mg Product Wasted: ___ mg Famotidine No 20 mg, 2 Mem oria 5-16 mL, Route: l 10:00: IV, Drug Mobile 00 form: INJ, ONCE, Dosing Weight 113.636, kg, Start date: 08/02/15 5:00:00 CDT, Stop date: 08/02/15 5:00:00 CDT Fentanyl No Notes: Memoria -16 (Same as: l 10:00: Sublimaze) Mobile 00 Preservati ve free. Bupivacaine No Notes: [place] Hydrochlori -16 (bupivacai l de 2.5 10:00: ne-epi Mobile MG/ML / 00 0.25%-1:20 Epinephrine 0,000 30 0.005 MG/ML ml VL) Not Injectable for use in Solution continuous infusion. (Same As: Marcaine w/Epi) Bacitracin No Notes: Memor ia 0.5 UNT/MG 16 (Same As: l / Polymyxin 10:00: Polysporin Demar B 10 UNT/MG 00 ) Topical Ointment [Polysporin ] Sodium No 1,000 mL, Memori a Chloride 5-10 Rate: 50 l 0.154 12:00: ml/hr, Demar MEQ/ML 00 Infuse Injectable over: 20 Solution hr, Route: IV, Dosing Weight 113.636 kg, Total Volume: 1,000, Priority: Routine, Start date: 07/27/15 7:00:00 CDT, Duration: 30 day, Stop date: 08/26/15 6:59:00 CDT Acetaminoph No 2 tab, [place] en 325 MG / 5-10 Route: PO, l Hydrocodone 12:00: Drug Form: Mobile Bitartrate 00 TAB, 5 MG Oral Dosing Tablet Weight 113.636, kg, Q4H, PRN Pain Score 7-10, Start date: 07/27/15 7:00:00 CDT, Duration: 30 day, Stop date: 08/26/15 6:59:00 CDT Acetaminoph No 325 mg, Mem oria en 5-10 Route: PO, l 12:00: Drug form: Demar 00 TAB, Q4H, Dosing Weight 113.636, kg, PRN Pain Score 1-3, Start date: 07/27/15 7:00:00 CDT, Duration: 30 day, Stop date: 08/26/15 6:59:00 CDT Dexamethaso 2016-0 No 6 mg, Memor ia ne 5-10 Route: IV, l 10:00: Drug form: Demar 00 INJ, ONCE, Dosing Weight 113.636, kg, Start date: 07/27/15 5:00:00 CDT, Stop date: 07/27/15 5:00:00 CDT Ondansetron 2016-0 No 4 mg, Memor ia 5-10 Route: IV, l 10:00: Drug form: Mobile 00 INJ, Q6H, Dosing Weight 113.636, kg, PRN Nausea & Vomiting, Start date: 07/27/15 5:00:00 CDT, Duration: 30 day, Stop date: 08/26/15 4:59:00 CDT Famotidine 2016-0 No 20 mg, Memor ia 5-10 Route: IV, l 10:00: Drug form: Demar 00 INJ, ONCE, Dosing Weight 113.636, kg, Start date: 07/27/15 5:00:00 CDT, Stop date: 07/27/15 5:00:00 CDT Bupivacaine 2016-0 No 30 mL, [place] Hydrochlori 5-10 Route: l de 2.5 10:00: MISCDemar MG/ML / 00 Dosing Epinephrine Weight 0.005 MG/ML 113.636, Injectable kg, Solution ONCALL, Start date: 07/27/15 5:00:00 CDT, Duration: 30 day, Stop date: 08/26/15 4:59:00 CDT Fentanyl 2016-0 No 25 Memoria 5-10 microgram, l 10:00: Route: Demar 00 IVP, Q1H, Dosing Weight 113.636, kg, PRN Pain Score 6-10, Priority: Routine, Start date: 07/27/15 5:00:00 CDT, Duration: 1 doses or times, Stop date: Limited # of times Bacitracin 2016-0 No 1 appl, [place] 0.5 UNT/MG 5-10 Route: l / Polymyxin 10:00: TOP, Mauricio n B 10 UNT/MG 00 ONCALL, Topical Drug form: Ointment OINT, [Polysporin Priority: ] Routine, Start date: 07/27/15 5:00:00 CDT, Duration: 1 doses or times Sodium 2016- No 1,000 mL, Memori a Chloride 5-10 Rate: 50 l 0.154 10:00: ml/hr, Mobile MEQ/ML 00 Infuse Injectable over: 20 Solution hr, Route: IV, Dosing Weight 113.636 kg, Total Volume: 1,000, Priority: Routine, Start date: 07/27/15 5:00:00 CDT, Duration: 30 day, Stop date: 08/26/15 4:59:00 CDT Lidocaine Yes 1 patch, [place] Hydrochlori 4-12 TOP, l de 0.05 13:33: Daily, PRN Herm shelton MG/MG 00 Pain Score Transdermal 1-5, Patch Remove [Lidoderm] after 12 hours, # 30 patch, 0 Refill(s), [id number] Docusate Yes 100 mg = 1 Mem oria Sodium 100 4-12 cap, PO, l MG Oral 13:33: BID, # 60 Chiquita nn Capsule 00 cap, 0 [Colace] Refill(s), [facility] [id number] gabapentin Yes 300 mg = 1 M emoria 300 MG Oral 4-12 cap, PO, l Capsule 13:33: Bedtime, # Herm shelton 00 30 cap, 0 Refill(s), [facility] [id number] baclofen 20 Yes 20 mg = 1 M emoria mg oral 4-12 tab, PO, l tablet 13:33: Bedtime, # Chiquita nn 00 30 tab, 0 Refill(s), [facility] [id number] baclofen 10 Yes 10 mg = 1 M emoria mg oral 4-12 tab, PO, l tablet 13:33: BID-10-29, Chiquita nn 00 # 60 tab, 0 Refill(s), [facility] [id number] sertraline Yes 200 mg = 2 M emoria 100 mg oral 4-12 tab, PO, l tablet 13:33: Bedtime, # Chiquita nn 00 60 tab, 0 Refill(s), Pharmacy: [facility] [id number] senna 8.6 Yes 8.6 mg = 1 Me moria mg oral 4-12 tab, PO, l tablet 13:33: QNoon, # Mobile 00 30 tab, 0 Refill(s), Pharmacy: [facility] [id number] propranolol Yes 60 mg = 1 M emoria 60 mg oral 4-12 cap, PO, l capsule, 13:33: Daily, # Chiquita nn extended 00 30 cap, 0 release Refill(s), Pharmacy: [facility] [id number] Lidocaine No 1 patch, [place] Hydrochlori 12 Route: l de 0.05 03:32: TOP, Demar MG/MG 00 Daily, Transdermal Drug form: Patch FILM, PRN [Lidoderm] Pain Score 1-5, Priority: Now, Start date: 06/28/15 22:32:00 CDT, Duration: 60 day, Stop date: 08/27/15 22:31:00 CDT, Remove after 12 hours remove No Notes: Memoria patch 12 Remove l 02:00: patch 12 Mobile 00 hours after applicatio n each day. Lidocaine No Notes: Memori a Hydrochlori -11 Apply only l de 0.05 13:30: once for Mauricio n MG/MG 00 up to 12 Transdermal hours in a Patch 24-hour [Lidoderm] period (12 hours on and 12 hours off). (Same as: Lidoderm) "Remove old patch before applicatio n of new patch" nichole, No Notes: [place] [facility] 06-18 (Same as: l 17:00: Senokot) Mobile 00 phenol 6% No Notes: Memori a AQ in water 06-16 WASTE: F/P l for 22:00: - Black; E Demar injection - [facility] Docusate No Notes: Memoria Sodium 100 06-16 (Same as: l MG Oral 02:00: Colace) Mobile Capsule 00 (Do Not [Colace] Crush) Sertraline No Notes: Memor ia 06-16 (Same as: l 02:00: Zoloft) Demar 00 Milk of No Notes: Memoria Magnesia 3-30 (Same as: l 17:00: Milk of Magnlupe, MOM) senna 8.6 No Notes: Memori a mg oral 3-30 (Same as: l tablet 14:58: Senokot) Sertraline No Notes: Memor ia 3-30 (Same as: l 02:00: Zoloft) Baclofen No Notes: Memoria 3-27 (Same As: l 02:00: Lioresal) Baclofen No Notes: Memoria 3-26 (Same As: l 13:00: Lioresal) Propranolol No Notes: [place] 3-24 Take with l 13:30: food. Do not crush or chew. (Same as: Inderal LA) Tylenol No Notes: Do Memor ia 3-24 not exceed l 11:51: 4 gm/day. Mobile 00 (Same as: Tylenol) Sertraline No Notes: Memor ia 3-24 (Same as: l 02:00: Zoloft) gabapentin No Notes: Memor ia 100 MG Oral 3-24 (Same as: l Capsule 02:00: Neurontin) Herm gabapentin No Notes: Memor ia 300 MG Oral 3-24 (Same as: l Capsule 02:00: Neurontin) Herm shelton Levetiracet No Notes: [place] am 3-23 Same as l 18:06: Keppra Mix with 100 mL NS, LR or D5W MEDICATION WASTE Product Size: 500 mg Product Wasted: ___ mg Lorazepam No Notes: Memori a 3-23 (Same as: l 18:06: Ativan) Saline No Notes: Memoria Flush 0.9% 3-23 (Same as: l 18:06: BD Posiflush) Baclofen No Notes: Memoria 3-23 (Same As: l 18:00: Lioresal) phenol 6% No 20 mL, Memori a AQ in water 05-23 Route: l for 16:00: NERVE Mobile injection 00 BLOCK, Dosing Weight 111.364, kg, ONCALL, Start date: 05/24/15 10:00:00, Duration: 30 day, Stop date: 06/23/15 10:59:00 onabotulinu No 600 unit, M claudia mtoxinA 05-11 Route: IM, l 22:00: ONCALL, Mobile 00 Dosing Weight 111.364, kg, Start date: 05/11/15 16:00:00, Duration: 30 day, Stop date: 06/10/15 16:59:00 Acetaminoph No Notes: [place] en 325 MG / 2 (Same as: l Hydrocodone 17:34: Platter Chiquita nn Bitartrate 00 325/5) Do 5 MG Oral not exceed Tablet 4gm/day of [Platter acetaminop 5/325] hen. Ondansetron No Notes: [place] 2- (Same as: l 16:14: Zofran) MEDICATION WASTE Product Size: 4 mg Product Wasted: ___ mg Flumazenil No Notes: Memor ia 2- (Same as: l 16:14: Romazicon) Naloxone No Notes: Memoria 2-09 Same as l 16:14: Narcan Hydromorpho No Notes: [place] ne 2- Same as: l 16:14: Dilaudid Labetalol No 10 mg, 2 [place] 2-09 mL, Route: l 16:14: IVP, Drug form: INJ, Q5Min, Dosing Weight 111.364, kg, PRN Elevated BP, Start date: 04/27/15 10:14:00, Duration: 5 doses or times, Stop date: 04/28/15 0:00:00 Metoprolol No Notes: Memor ia 2-09 (Same as: l 16:14: Lopressor) Push over 2 minutes Omnipaque No Route: IV, Me moria 350 2-09 Dosing l 15:40: Weight Mobile 111.364, kg, ONCE, Start date: 04/27/15 9:40:00, Stop date: 04/27/15 9:40:00 tramadol Yes 50 mg = 1 [place] hydrochlori 02 tab, PO, l de 50 MG 12:09: Q6H, PRN Chiquita nn Oral Tablet 00 Pain, X 10 day, # 24 tab, 0 Refill(s) Acetaminoph No 2 tab, [place] en 325 MG / 09-17 Route: PO, l Hydrocodone 11:01: Drug Form: Demar Bitartrate 00 TAB, 5 MG Oral Dosing Tablet Weight [Platter 104.545, 5/325] kg, ONCE, STAT, Start date: 09/17/14 6:01:00, Stop date: 09/17/14 6:01:00 Fleet Enema 2013-03 No 133 ml, Mem oria 03-30 Route: HI, l 12:30: Drug Form: Mobile 00 ROSY, Dosing Weight 75, kg, ONCE, NOW, Start date: 01/28/14 6:30:00, Stop date: 01/28/14 6:30:00 Acetaminoph 2013-03 Yes 1 tab, PO, Memoria en 300 MG / 03-30 Q4H, for l Codeine 11:21: pain, # 60 Herm shelton Phosphate 00 tab, 0 30 MG Oral Refill(s) Tablet [Tylenol with Codeine #3] Ondansetron 2013-03 Yes 4 mg = 1 Me moria 4 MG Oral 12 tab, PO, l Tablet 11:21: Q8H, # 30 Mauricio n [Zofran] 00 tab, 0 Refill(s) POLYETHYLEN 2013-03 Yes PO, Daily, Memoria E GLYCOL 12 0 l 3350 11:21: Refill(s) Demar heparin 2013-03 No Notes: Memoria 03-30 porcine l 06:00: heparin magnesium 2013-03 No Notes: Memori a citrate 03-30 (Same as: l 04:59: Citrate of Mobile 00 Magnesia) Ancef 2013-03 No 2 gm, Memoria 03-28 Route: l 20:54: IVPB, Mobile 00 ONCE, Dosing Weight 75, kg, Start date: 01/26/14 14:54:00, Duration: 1 doses or times, Stop date: 01/26/14 14:54:00 Sertraline 2013-03 No Notes: Memor ia 03-27 (Same as: l 03:00: Zoloft) Neurontin 2013-03 No Notes: Memori a 03-27 (Same as: l 03:00: Neurontin) Fleet Enema 2013-03 No 133 ml, Mem oria 03-26 Route: HI, l 19:00: Drug Form: ROSY, Dosing Weight 75, kg, ONCE, Start date: 01/24/14 13:00:00, Stop date: 01/24/14 13:00:00 sennosides, 2013-03 No 8.6 mg, 1 M emoria [facility] 8.6 MG 03-26 tab, l Oral Tablet 15:00: Route: PO, Drug Form: TAB, Dosing Weight 75, kg, Q12H, Start date: 01/24/14 9:00:00, Duration: 30 day, Stop date: 02/22/14 21:00:00 gabapentin 2013-03 No 100 mg, 1 Me moria 100 MG Oral 03-26 cap, l Capsule 15:00: Route: PO, Drug form: CAP, Daily, Dosing Weight 75, kg, Start date: 01/24/14 9:00:00, Duration: 30 day, Stop date: 02/22/14 9:00:00 Escitalopra 2013-03 No 10 mg, [place] m 03-26 Route: l 15:00: PEG, Drug form: TAB, Daily, Dosing Weight 75, kg, Start date: 01/24/14 9:00:00, Duration: 30 day, Stop date: 02/22/14 9:00:00 Amantadine 2013-03 No Notes: Memor ia 03-26 (Same as: l 15:00: Symmetrel) Baclofen 2013-03 No Notes: Memoria 03-26 (Same As: l 14:35: Lioresal) Fentanyl 2013-03 No Notes: Memoria 03-25 (Same as: l 18:04: Sublimaze) Mobile 00 Preservati ve free. Lidocaine 2013-03 No Notes: Memori a Hydrochlori -07 (Same as: l de 10 MG/ML 18:04: Xylocaine) Demar Injectable 00 Solution heparin, 2013-03 No Notes: Memoria porcine 1-06 porcine l 22:00: heparin Demar 00 Miralax 2013-03 No Notes: Memoria 1-06 Dissolve l 16:55: in 8 oz of Mobile 00 water or juice. (Same as: Miralax) Ancef + 2013-03 No Notes: Memoria Sodium -05 (Same As: l Chloride 23:00: Ancef, Mobile 0.9% IV 100 00 Kefzol) mL Cefazolin FOR IV SET ONLY Demerol HCl 2013-03 No 12.5 mg, Me moria 1 Route: IV, l 19:00: ONCE, Demar 00 Dosing Weight 75, kg, Start date: 01/21/14 13:00:00, Stop date: 01/21/14 13:00:00 Fentanyl 2013-03 No Notes: Memoria -05 (Same as: l 16:20: Sublimaze) Preservat dania free. Hydromorpho 2013-03 No Notes: [place] ne 05 Same as: l 16:20: Dilaudid Dexamethaso 2013-03 No Notes: Tom vigrinia ne 1-05 Concentrat l 16:20: ion: Demar 00 4mg/ml Ondansetron 2013-03 No Notes: [place] 1-05 (Same as: l 16:20: Zofran) Labetalol 2013-03 No 10 mg, 2 [place] 1-05 mL, Route: l 16:20: IVP, Drug form: INJ, Q5Min, Dosing Weight 75, kg, PRN Elevated BP, Start date: 01/21/14 10:20:00, Duration: 5 doses or times, Stop date: Limited # of times Ancef 2013-03 No 2 gm, Memoria 1-05 Route: l 15:14: IVPB, Demar 00 ONCE, Dosing Weight 75, kg, Start date: 01/21/14 9:14:00, Duration: 1 doses or times, Stop date: 01/21/14 9:14:00 Saline 2013-03 No Notes: Memoria Flush 0.9% 1-05 (Same as: l 15:00: BD Posiflush) Levetiracet 2013-03 No Notes: [place] am -05 (Same l 15:00: as:Keppra) sennosides, 2013-03 No Notes: [place] [facility] -05 (Same as: l 15:00: Senokot) Docusate 2013-03 No Notes: Memoria Sodium 100 -05 (Same as: l MG Oral 15:00: Colace) Capsule (Do Not Crush) pantoprazol 2013-03 No Notes: [place] e 05 (Same as: l 15:00: Protonix) Escitalopra 2013-03 No 10 mg, [place] m 03-23 Route: l 15:00: PEG, Mobile Daily, Dosing Weight 75, kg, Start date: 01/21/14 9:00:00, Duration: 30 day, Stop date: 02/19/14 9:00:00 Influenza 2013-03 No Notes: Memori a Virus 03-23 (Same as: l Vaccine, 15:00: Fluzone Mauricio n Inactivated 00 [place]- nt) (H3N2)-like virus ([place] [place] X-175C) strain / Influenza Virus Vaccine, Inactivated [place], IVR-148 (H1N1) strain / Influenza Virus Vaccine, Inactivated , B---lik Seroquel 2013-03 No Notes: Memoria 1-05 (Same as: l 08:14: SEROquel) Ondansetron 2013-03 Yes Special Mem oria 4 MG 03-23 Instructio l Disintegrat 07:59: ns: Mauricio rizo ing Tablet 00 Dissolve tab under tongue baclofen 10 2013-03 Yes 10 mg = 1 M emoria mg oral 1-05 tab, PO, l tablet 07:59: TID, # 90 Mauricio n 00 tab, 0 Refill(s) sertraline 2013-03 Yes 100 mg = 1 M emoria 100 mg oral 1-05 tab, PO, l tablet 07:59: Bedtime, # Chiquita nn 00 30 tab, 0 Refill(s) gabapentin 2013-03 Yes 100 mg = 1 M emoria 100 MG Oral 1-05 cap, l Capsule 07:59: Bedtime, 0 Herm shelton 00 Refill(s) amantadine 2013-03 Yes 100 mg = 1 M emoria 100 mg oral 1-05 tab, l tablet 07:59: Daily, 0 Demar 00 Refill(s) Levetiracet 2013-03 Yes 250 mg = 1 Memoria am 250 MG 1-05 tab, BID, l Oral Tablet 07:59: 0 Mauricio n 00 Refill(s) Acetaminoph 2013-03 No Notes: Do M emoria en 325 MG / 05 not exceed l Hydrocodone 04:41: 4gm/day of Demar Bitartrate 00 acetaminop 10 MG Oral hen. (Same Tablet as: Platter [Platter 325/10) 10/325] Tylenol 2013-03 No Notes: Do Memor ia -05 not exceed l 04:40: 4 gm/day. Mobile 00 (Same as: Tylenol) Regular 2013-03 No 60 units) [place] Insulin, 1-05 Stable for l Human 100 04:37: 28 days at [facility] UNT/ 00 room Injectable temperatur Solution e Expires in days from ____Date Dextrose 2013-03 No 25 gm, 50 [place] 50% Syringe 1-05 mL, Route: l 04:37: IVP, Drug Form: INJ, Dosing Weight 75, kg, PRN, PRN Abnormal Lab Result, Start date: 01/20/14 22:37:00, Duration: 30 day, Stop date: 02/19/14 22:36:00 Saline 2013-03 No Notes: Memoria Flush 0.9% 1-05 (Same as: l 04:37: BD Mobile 00 Posiflush) Labetalol 2013-03 No 10 mg, 2 [place] 1-05 mL, Route: l 04:37: IVP, Drug Mobile form: INJ, Q15Min, Dosing Weight 75, kg, PRN Hypertensi on, Start date: 01/20/14 22:37:00, Duration: 3 doses or times, Stop date: Limited # of times Morphine 2013-03 No Notes: Memoria 1-05 (Same l 04:37: as:MORPhin Demar 00 e Sulfate) Ondansetron 2013-03 No Notes: [place] 1-05 (Same as: l 04:37: Zofran) Mobile 00 Bisacodyl 2013-03 No Notes: Memori a 1-05 (Same As: l 04:37: Dulcolax, Demar 00 Bisco-Lax) Sodium 2013-03 No 1,000 mL, Memori a Chloride 1-05 Rate: 125 l 0.154 04:37: ml/hr, Mobile MEQ/ML 00 Infuse Injectable over: 8 Solution hr, Route: IV, Dosing Weight 75 kg, Total Volume: 1,000, Start date: 01/20/14 22:37:00, Duration: 30 day, Stop date: 02/19/14 22:36:00 Benadryl 2013-03 No 25 mg, Memoria 1-05 Route: l 01:09: IVP, ONCE, Demar 00 Dosing Weight 75, kg, Priority: STAT, Start date: 01/20/14 19:09:00, Stop date: 01/20/14 19:09:00 Sodium 2013-03 No 1,000 mL, Memori a Chloride 1-05 1,000 l 0.154 01:09: ml/hr, Mobile MEQ/ML 00 Infuse Injectable Over: 1 Solution hr, Route: IV, ONCE, Priority: STAT, Dosing Weight 75 kg, Start date: 01/20/14 19:09:00, Duration: 1 doses or times, Stop date: 01/20/14 19:09:00 Reglan 2013-03 No 10 mg, Memoria 1-05 Route: l 01:08: IVP, Drug form: INJ, ONCE, Dosing Weight 75, kg, Priority: STAT, Start date: 01/20/14 19:08:00, Stop date: 01/20/14 19:08:00 sennosides, Yes 8.6 mg = 1 [facility] 8.6 MG 8-18 tab, PO, l Oral Tablet 19:29: Q12H, # 30 Mobile 00 tab, 0 Refill(s) pantoprazol Yes = 1 pkt, Me moria e 40 mg 8-18 GT, Q12H, l oral 19:29: # 30 pkt, Demar granule 00 0 Refill(s) oxyCODONE 5 Yes 10 mg = 2 M emoria mg oral 8-18 tab, PO, l tablet 19:29: Q4H, Pain Mauricio n 00 Score 7-10, # 30 tab, 0 Refill(s) escitalopra Yes 10 mg = 1 M emoria m 10 mg 8-18 tab, PEG, l oral tablet 19:29: Daily, # He rmann 00 30 tab, 0 Refill(s) bisacodyl Yes 10 mg = 1 Mem oria 10 mg 8-18 supp, HI, l rectal 19:29: Daily, Demar suppository 00 Constipati on, # 30 supp, 0 Refill(s) Acetaminoph Yes 1 tab, PO, Memoria en 325 MG / 8-18 Q4H, Pain l Hydrocodone 19:29: Score 4-6, Mobile Bitartrate 00 # 30 tab, 10 MG Oral 0 Tablet Refill(s) magnesium No 2 gm, 50 [place] sulfate 8-18 mL, Route: l 09:00: IVPB, Drug form: INJ, ONCE, Start date: 11/03/13 4:00:00, Stop date: 11/03/13 4:00:00 magnesium No 2 gm, 50 [place] sulfate 8-17 mL, Route: l 07:00: IVPB, Drug form: INJ, Q2H, Start date: 11/02/13 2:00:00, Duration: 2 doses or times, Stop date: 11/02/13 4:00:00 Protonix No 40 mg, 1 Memor ia 8-17 pkt, l 02:00: Route: GT, Drug form: GRAN/REC, Q12H, Dosing Weight 118.5, kg, Start date: 11/01/13 21:00:00, Duration: 30 day, Stop date: 12/01/13 9:00:00 sennosides, 2014-0 No Notes: [place] [facility] 8.6 MG 8-17 (Same as: l Oral Tablet 02:00: Senokot) He rmann 00 magnesium 2013-0 No 2 gm, 50 [place] sulfate 8-16 mL, Route: l 09:00: IVPB, Drug Mobile 00 form: INJ, Q2H, Start date: 11/01/13 4:00:00, Duration: 2 doses or times, Stop date: 11/01/13 6:00:00 sennosides, 2014-0 No Notes: [place] [facility] 8.6 MG 8-15 (Same as: l Oral Tablet 15:45: Senokot) He rmann 00 NS 1,000 mL 0 No 1,000 mL, [facility] 10-31 Rate: 75 l 13:14: ml/hr, Mobile 00 Infuse over: 13.3 hr, Route: IV, Dosing Weight 118.5 kg, Total Volume: 1,000, Start date: 10/31/13 8:14:00, Duration: 30 day, Stop date: 11/30/13 8:13:00 Sodium 2013-0 No 1,000 mL, Memori a Chloride 10-31 1,000 l 0.154 13:13: ml/hr, Mobile MEQ/ML 00 Infuse Injectable Over: 1 Solution hr, Route: IV, 1,000, Drug form: INJ, ONCE, Priority: STAT, Dosing Weight 118.5 kg, Start date: 10/31/13 8:13:00, Duration: 1 doses or times, Stop date: 10/31/13 8:13:00 magnesium 2013-0 No 2 gm, 50 [place] sulfate 8-15 mL, Route: l 08:00: IVPB, Drug Demar form: INJ, ONCE, Start date: 10/31/13 3:00:00, Stop date: 10/31/13 3:00:00 parenteral 0 No Notes: Per [facility] nutrition 10-30 [facility] l solution 23:00: policy, Mauricio n w/electroly 00 bag must renetta 800 mL be changed every 24hr. magnesium 2013-0 No 2 gm, 50 [place] sulfate 8-14 mL, Route: l 09:00: IVPB, Drug Mobile 00 form: INJ, ONCE, Start date: 10/30/13 4:00:00, Stop date: 10/30/13 4:00:00 parenteral 2013-0 No Notes: Per [address] [facility] l solution 23:00: policy, Mauricio n w/electroly 00 bag must renetta 800 mL be changed every 24hr. calcium 2013- No 3,000 mg, Memor ia gluconate + 8-13 30 mL, l Sodium 09:00: Route: IV, Chiquita nn Chloride 00 ONCE, 0.9% IV 100 Start mL date: 10/29/13 4:00:00, Stop date: 10/29/13 4:00:00 parenteral 2013-0 No Notes: Per [address] [facility] l solution 23:00: policy, Mauricio n w/electroly 00 bag must renetta 800 mL be changed every 24hr. magnesium 2013- No 2 gm, 50 [place] sulfate 8-12 mL, Route: l 08:30: IVPB, Drug Mobile 00 form: INJ, Q2H, Start date: 10/28/13 3:30:00, Duration: 2 doses or times, Stop date: 10/28/13 5:30:00 parenteral 2013-0 No Notes: Per [address] l solution 23:00: policy, Mauricio n w/electroly 00 bag must renetta 800 mL be changed every 24hr. sodium 2013-0 No Notes: Memoria phosphate + 8-11 (Same as: l Sodium 11:00: Na Demar Chloride 00 Phosphate, 0.9% IV 250 Na PO4) mL magnesium No 2 gm, 50 [place] sulfate 8-11 mL, Route: l 11:00: IVPB, Drug Demar 00 form: INJ, Q2H, Start date: 10/27/13 6:00:00, Duration: 2 doses or times, Stop date: 10/27/13 8:00:00 parenteral 2013-0 No Notes: Per [address] [facility] l solution 23:00: policy, Mauricio n w/electroly 00 bag must renetta 1,000 be changed mL every 24hr. magnesium 2013-0 No 2 gm, 50 [place] sulfate 8-10 mL, Route: l 09:00: IVPB, Drug Demar 00 form: INJ, Q2H, Start date: 10/26/13 4:00:00, Duration: 2 doses or times, Stop date: 10/26/13 6:00:00 sodium No Notes: Memoria phosphate + 8-10 (Same as: l Sodium 08:00: Na Mobile Chloride 00 Phosphate, 0.9% IV 250 Na PO4) mL parenteral No Notes: Per [facility] 10-25 [facility] l solution 23:00: policy, Mauricio n w/electroly 00 bag must renetta 1,000 be changed mL every 24hr. Lexapro No Notes: Memoria 10-25 (Same as: l 17:03: Lexapro) Demar 00 potassium No Notes: Memori a phosphate + 10-25 (Same as: l Sodium 10:00: K Demra Chloride 00 Phosphate. 0.9% IV 250 ) 1 mMol mL phoshate has 1.47 mEq potassium Infuse over 2 hours magnesium No 2 gm, 50 [place] sulfate 8- mL, Route: l 09:30: IVPB, Drug Mobile 00 form: INJ, Q2H, Start date: 10/25/13 4:30:00, Duration: 2 doses or times, Stop date: 10/25/13 6:30:00 Vancomycin No Notes: Memor ia 10-25 (Same As: l 08:00: Vancocin) Demar Vancomycin FOR IV SET ONLY parenteral No Notes: Per [facility] 10-24 [facility] l solution 23:00: policy, Mauricio n w/electroly 00 bag must renetta 750 mL be changed every 24hr. heparin No Notes: Memoria sodium, 8-08 porcine l porcine 21:00: heparin Demar 2500 UNT/ML 00 Injectable Solution Saline No Notes: Memoria Flush 0.9% 8-08 (Same as: l 21:00: BD Mobile 00 Posiflush) Saline No Notes: Memoria Flush 0.9% 8-08 (Same as: l 13:53: BD Mobile 00 Posiflush) magnesium No 2 gm, 50 [place] sulfate 8-08 mL, Route: l 06:00: IVPB, Drug Mobile 00 form: INJ, Q2H, Start date: 10/24/13 1:00:00, Duration: 2 doses or times, Stop date: 10/24/13 3:00:00 potassium No Notes: Memori a phosphate + 10-24 (Same as: l Sodium 05:00: K Demar Chloride Phosphate. 0.9% IV 250 ) 1 mMol mL phoshate has 1.47 mEq potassium Infuse over 4 hours magnesium No 4 gm, 100 Mem oria sulfate 8-08 mL, Route: l 05:00: IVPB, Drug form: INJ, ONCE, Start date: 10/24/13 0:00:00, Stop date: 10/24/13 0:00:00 Protonix No Notes: For Mem oria 10-24 IV push l 02:00: reconstitu te with 10 ml 0.9% sodium chloride and push over 2 minutes. (Same as: Protonix) Potassium No Special Memor ia Chloride 10-23 Instructio l 20:57: ns: FOR ICU USE ONLY Sodium No Special Memoria Phosphate, 10-23 Instructio l Monobasic 20:57: ns: FOR Chiquita nn ICU USE ONLY Calcium No 1,000 mg, Memor ia Carbonate 10-23 Route: PO, l 500 MG 20:57: PRN, Mobile Chewable 00 Dosing Tablet Weight 118.5, kg, PRN Abnormal Lab Result, FOR ICU USE ONLY, Start date: 10/23/13 15:57:00, Duration: 30 day, Stop date: 11/22/13 15:56:00 Phosphorus No Special [place] / Potassium 10-23 Instructio l 20:57: ns: FOR ICU USE ONLY Neutra-Phos No 2 pkt, [place] 10-23 Route: PO, l 20:57: Dosing Demar Weight 118.5, kg, PRN, PRN Abnormal Lab Result, FOR ICU USE ONLY, Start date: 10/23/13 15:57:00, Duration: 30 day, Stop date: 11/22/13 15:56:00 Calcium No Special Memoria Gluconate 10-23 Instructio l 20:57: ns: FOR Mobile ICU USE ONLY Magnesium 2014-0 No Special Memor ia Sulfate 8- Instructio l 20:57: ns: FOR Mobile 00 ICU USE ONLY Magnesium 2013-0 No 800 mg, Memor ia Oxide 8-07 Route: PO, l 20:57: PRN, Dosing Weight 118.5, kg, PRN Abnormal Lab Result, FOR ICU USE ONLY, Start date: 10/23/13 15:57:00, Duration: 30 day, Stop date: 11/22/13 15:56:00 potassium 2014-0 No Notes: Memori a chloride 8-07 (Same as: l 04:00: KCL) Mobile 00 Infuse no faster than 10 mEq/hr if given peripheral ly. magnesium 2013-0 No 2 gm, 50 [place] sulfate 8-07 mL, Route: l 04:00: IVPB, Drug form: INJ, Q2H, Start date: 10/22/13 23:00:00, Duration: 2 doses or times, Stop date: 10/23/13 1:00:00 Fentanyl 2013-0 No Notes: Memoria 8-06 (Same as: l 22:15: Sublimaze) Demar 00 Preservati ve free. Fentanyl 2013-0 No Notes: Memoria 8-06 (Same as: l 22:14: Sublimaze) Demar 00 Preservati ve free. Fentanyl 2014-0 No 25 Memoria 8-06 microgram, l 21:17: Route: IV, Mobile 00 ONCE, Dosing Weight 118.5, kg, Start date: 10/22/13 16:17:00, Stop date: 10/22/13 16:17:00 Versed 2013-0 No 1 mg, Memoria 8-06 Route: IV, l 21:17: ONCE, Dosing Weight 118.5, kg, Start date: 10/22/13 16:17:00, Stop date: 10/22/13 16:17:00 potassium 2014-0 No Notes: Memori a chloride 8-06 (Same as: l 19:00: KCL) Demar 00 Infuse no faster than 10 mEq/hr if given peripheral ly. magnesium 2014-0 No 2 gm, 50 [place] sulfate 8-06 mL, Route: l 18:00: IVPB, Drug Demar 00 form: INJ, ONCE, Start date: 10/22/13 13:00:00, Stop date: 10/22/13 13:00:00 Vancomycin No Notes: Memor ia 10-22 (Same As: l 15:00: Vancocin) Vancomycin FOR IV SET ONLY micafungin No Notes: Memor ia 10-22 Same as l 15:00: Mycamine Protect from light meropenem No Notes: Memori a 10-22 (Same as: l 15:00: Merrem) . Demar 00 Sodium No 1,000 mL, Memori a Chloride 10-22 1,000 l 0.154 14:16: ml/hr, Mobile MEQ/ML 00 Infuse Injectable Over: 1 Solution hr, Route: IV, 1,000, Drug form: INJ, ONCE, Priority: STAT, Dosing Weight 118.5 kg, Start date: 10/22/13 9:16:00, Duration: 1 doses or times, Stop date: 10/22/13 9:16:00 Acetaminoph No Notes: [place] en 10-22 Infuse l 14:00: over 15 minutes Do not exceed 4gm/day of acetaminop hen Sodium No 1,000 mL, Memori a Chloride 10-22 1,000 l 0.154 13:47: ml/hr, Demar MEQ/ML 00 Infuse Injectable Over: 1 Solution hr, Route: IV, 1,000, Drug form: INJ, ONCE, Priority: STAT, Dosing Weight 118.5 kg, Start date: 10/22/13 8:47:00, Duration: 1 doses or times, Stop date: 10/22/13 8:47:00 Dextrose No 25 gm, 50 [place] 50% Syringe 10-22 mL, Route: l 09:24: IVP, Drug Form: INJ, Dosing Weight 118.5, kg, ONCE, STAT, Start date: 10/22/13 4:24:00, Stop date: 10/22/13 4:24:00 Insulin, No 60 units) Mem oria Regular, 10-22 Stable for l Pork 09:24: 28 days at Demar 00 room temperatur e Expires in days from ____Date Sodium No Notes: Memoria Bicarbonate 10-22 (sodium l 1 MEQ/ML 09:18: bicarb Mobile Injectable 00 8.4% (1 Solution mEq/ml) 50 ml syringe) Magnesium No 2 gm, 50 [place] Sulfate 8-06 mL, Route: l 09:18: IVPB, Drug Demar 00 form: INJ, ONCE, Dosing Weight 118.5, kg, Start date: 10/22/13 4:18:00, Duration: 2 hr, Stop date: 10/22/13 4:18:00 Fluconazole No Notes: [place] 10-22 (Same as: l 09:04: Diflucan) Do not refrigerat e Calcium 2013- No 1,000 mg, Memor ia Chloride 8- 10 mL, l 08:47: Route: Mobile 00 IVPB, ONCE, Dosing Weight 118.5, kg, Start date: 10/22/13 3:47:00, Stop date: 10/22/13 3:47:00 Calcium 2013- No 1,000 mg, Memor ia Chloride 8- 10 mL, l 08:11: Route: Demar 00 IVPB, ONCE, Dosing Weight 118.5, kg, Start date: 10/22/13 3:11:00, Stop date: 10/22/13 3:11:00 Protonix 2013- No Notes: For Mem oria 10-22 IV push l 07:41: reconstitu Mobile 00 te with 10 ml 0.9% sodium chloride and push over 2 minutes. (Same as: Protonix) Sodium No 100 mL, Memoria Chloride 10-22 Rate: 10 l 0.154 07:40: ml/hr, Mobile MEQ/ML 00 Infuse Injectable over: 10 Solution hr, Route: IVPB, Dosing Weight 118.5 kg, Total Volume: 100, Infuse at 8 mg / hr for 72 hours for GI bleeding, Start date: 10/22/13 2:40:00, Duration: 72 hr, Stop date: 10/25/13 2:39:00 Golytely No Notes: Memoria 10-22 (Same as: l 07:17: Nulytely) Demar 00 vasopressin 2014-0 No 250 mL, Mem oria 80 unit + 10-22 Rate: l Sodium 05:47: Infuse at Mauricio n Chloride 00 0.04 0.9% unit/minut (titrate) e, Dosing 250 mL Weight 118.5, kg, Route: IV, Total Volume: 254, Priority: STAT, Start Date: 10/22/13 0:47:00, Duration: 30 day, Stop date: 11/21/13 0:46:00, Replace Every: 24 hr Reglan No Notes: Memoria 10-22 (Same as: l 05:00: Reglan) Demar 00 phenylephri No Notes: [place] ne 50 mg in 10-22 (Same as: l NS 250 ml 02:28: Phenylephr He rmann IV 00 ine) (Titrate) 50 mg + Sodium Chloride 0.9% IV 245 mL vancomycin No Notes: Memor ia + Sodium 10-22 (Same As: l Chloride 02:06: Vancocin) Herm shelton 0.9% IV 500 00 Vancomycin mL FOR IV SET ONLY Vancomycin No Notes: Memor ia 10-22 (Same As: l 02:00: Vancocin) Demar 00 Vancomycin FOR IV SET ONLY Zosyn No Notes: Memoria 10-22 (Same as: l 02:00: Zosyn) Demar 00 Dosing based on Piperacill in component Vancomycin No Notes: Memor ia 10-22 (Same As: l 01:43: Vancocin) Demar 00 Vancomycin FOR IV SET ONLY NS 1000 mL No 1,000 mL, Me moria 10-22 Rate: 50 l 01:08: ml/hr, Demar 00 Infuse over: 20 hr, Route: IV, Dosing Weight 118.5 kg, Total Volume: 1,000, Start date: 10/21/13 20:08:00, Duration: 30 day, Stop date: 11/20/13 20:07:00 Sodium No 1,000 mL, Memori a Chloride 10-22 1,000 l 0.154 00:32: ml/hr, Mobile MEQ/ML 00 Infuse Injectable Over: 1 Solution hr, Route: IV, 1,000, Drug form: INJ, ONCE, Priority: STAT, Dosing Weight 118.5 kg, Start date: 10/21/13 19:32:00, Duration: 1 doses or times, Stop date: 10/21/13 19:32:00 Amantadine No Notes: Memor ia 10-20 (Same as: l 12:22: Symmetrel) Demar magnesium No 2 gm, 50 [place] sulfate 8-04 mL, Route: l 11:00: IVPB, Drug Demar 00 form: INJ, Q2H, Start date: 10/20/13 6:00:00, Duration: 2 doses or times, Stop date: 10/20/13 8:00:00 calcium No 3,000 mg, Memor ia gluconate + 10-20 30 mL, l Sodium 10:00: Route: Mobile Chloride 00 IVPB, 0.9% IV 100 ONCE, mL Start date: 10/20/13 5:00:00, Stop date: 10/20/13 5:00:00 parenteral No Notes: Per [address] l solution 23:00: policy, Mauricio n w/electroly 00 bag must renetta 665 mL be changed every 24hr. potassium No Notes: Memori a chloride 10-19 (Same as: l 08:00: Potassium Mobile 00 Chloride) magnesium No 2 gm, 50 [place] sulfate 8-03 mL, Route: l 08:00: IVPB, Drug form: INJ, ONCE, Start date: 10/19/13 3:00:00, Stop date: 10/19/13 3:00:00 parenteral No Notes: Per [address] l solution 23:00: policy, Mauricio n w/electroly 00 bag must renetta 665 mL be changed every 24hr. Acetaminoph No Notes: Max Memoria en 10-18 acetaminop l 15:46: hen = Mobile 00 4000mg/day (4 gm/day). (Same as: Tylenol) Protonix No Notes: For Mem oria 10-18 IV push l 14:00: reconstitu Demar te with 10 ml 0.9% sodium chloride and push over 2 minutes. (Same as: Protonix) potassium No Notes: Memori a chloride 10-18 (Same as: l 08:00: Potassium Chloride) magnesium No 2 gm, 50 [place] sulfate 10-18 mL, Route: l 08:00: IVPB, Drug form: INJ, ONCE, Start date: 10/18/13 3:00:00, Stop date: 10/18/13 3:00:00 Mannitol No Notes: Memoria 10-18 (Same as: l 02:57: Osmitrol) Mobile 00 Infuse through 5 micron or smaller filter [facility]oph No Notes: [facility] / 10-18 not exceed l Hydrocodone 02:52: 4gm/day of Mobile Bitartrate 00 acetaminop 10 MG Oral hen. (Same Tablet as: Platter [Platter 325/10) 10/325] Acetaminoph No Notes: [place] en 325 MG / 10-18 (Same as: l Hydrocodone 02:51: Platter Chiquita nn Bitartrate 00 325/5) Do 5 MG Oral not exceed Tablet 4gm/day of [Platter acetaminop 5/325] hen. Acetaminoph No Notes: [place] en 325 MG / 10-18 (Same as: l Hydrocodone 02:50: Platter Chiquita nn Bitartrate 00 325/5) Do 5 MG Oral not exceed Tablet 4gm/day of [Platter acetaminop 5/325] hen. Fentanyl No Notes: Memoria 10-18 (Same as: l 02:48: Sublimaze) Demar 00 Preservati ve free. parenteral No Notes: Per [facility] nutrition 10-17 hospital l solution 23:00: policy, Mauricio n w/electroly 00 bag must renetta 600 mL be changed every 24hr. NS 1,000 mL No 1,000 mL, [facility] 10-17 Rate: 100 l 14:02: ml/hr, Demar Infuse over: 10 hr, Route: IV, Dosing Weight 118.5 kg, Total Volume: 1,000, Start date: 10/17/13 9:02:00, Duration: 30 day, Stop date: 11/16/13 9:01:00 Acetaminoph No Notes: Do M emoria en 10-17 not exceed l 13:53: 4 gm/day. Demar 00 (Same as: Tylenol) Sodium No 60 mL, Memoria Chloride 4 10-16 Route: IV, l MEQ/ML 23:18: ONCE, Mobile Injectable 00 Dosing Solution Weight 118.5 kg, Start date: 10/16/13 18:18:00, Duration: 1 doses or times, Stop date: 10/16/13 18:18:00 Ancef No 2 gm, Memoria 10-16 Route: l 20:51: IVPB, Mobile 00 ONCE, Dosing Weight 118.5, kg, Start date: 10/16/13 15:51:00, Duration: 1 doses or times, Stop date: 10/16/13 15:51:00 Magnesium No 2 gm, Memoria Sulfate 10-16 Route: l 20:19: IVPB, Drug Mobile 00 form: INJ, ONCE, Dosing Weight 118.5, kg, Start date: 10/16/13 15:19:00, Duration: 2 hr, Stop date: 10/16/13 15:19:00 Water 1000 No Special [place] MG/ML -31 Instructio l Injectable 15:41: ns: For Herm shelton Solution 00 IMU and ICU use only. See Order Comments!! Water 1000 No Special [place] MG/ML 7-31 Instructio l Injectable 14:32: ns: For Herm shelton Solution 00 IMU and ICU use only. See Order Comments!! Fentanyl No 1,000 Memoria 7-31 microgram, l 14:29: 20 mL, Mobile 00 Rate: Titrate as directed, Dosing Weight 118.5, kg, Route: IV, Total Volume: 20 mL, Start Date: 10/16/13 9:29:00, Duration: 30 day, Stop date: 11/15/13 9:28:00, Replace Every: 24 hr Acetaminoph No Notes: Do M emoria en 10-16 not exceed l 14:28: 4 gm/day. Demar 00 (Same as: Tylenol) Demerol HCl No Notes: [place] 7-31 (Same as: l 10:46: Demerol) Mobile 00 "Use Precaution in Elderly, Seizure disorders, and Renal impairment " Sodium No 500 mL, Memoria Chloride 7-31 500 ml/hr, l 0.154 03:11: Infuse Mobile MEQ/ML 00 Over: 1 Injectable hr, Route: Solution IV, 500, Drug form: INJ, ONCE, Priority: STAT, Dosing Weight 118.5 kg, Start date: 10/15/13 22:11:00, Duration: 1 doses or times, Stop date: 10/15/13 22:11:00 Buspar 0 No Notes: Memoria 7-31 (Same As: l 03:00: BuSpar) Demar 00 Magnesium No 2 gm, 50 [place] Sulfate 7-30 mL, Route: l 15:00: IVPB, Drug Demar 00 form: INJ, Q2H, Dosing Weight 118.5, kg, Total dose = 6 gm, Start date: 10/15/13 10:00:00, Duration: 3 doses or times, Stop date: 10/15/13 14:00:00 Demerol HCl No Notes: [place] 7-30 (Same as: l 11:25: Demerol) Mobile 00 "Use Precaution in Elderly, Seizure disorders, and Renal impairment " Miralax No Notes: Memoria 7-30 Dissolve l 02:00: in 8 oz of Demar 00 water or juice. (Same as: Miralax) Magnesium No 2 gm, 50 [place] Sulfate 7-29 mL, Route: l 13:00: IVPB, Drug Demar 00 form: INJ, Q2H, Dosing Weight 118.5, kg, Total dose = 6 gm, Start date: 10/14/13 8:00:00, Duration: 3 doses or times, Stop date: 10/14/13 12:00:00 Water 1000 No Special [place] MG/ML 7-29 Instructio l Injectable 11:27: ns: For Herm shelton Solution 00 IMU and ICU use only. See Order Comments!! Sodium 2013- No 500 mL, Memoria Chloride 7-29 500 ml/hr, l 0.154 08:15: Infuse Mobile MEQ/ML 00 Over: 1 Injectable hr, Route: Solution IV, ONCE, Priority: STAT, Dosing Weight 118.5 kg, Start date: 10/14/13 3:15:00, Duration: 1 doses or times, Stop date: 10/14/13 3:15:00 Sodium 2014-0 No 500 mL, Memoria Chloride 3% 7-29 Rate: 150 l IV 500 mL 06:09: ml/hr, Mauricio n 00 Infuse over: 3.3 hr, Route: IV, Dosing Weight 118.5 kg, Total Volume: 500, Start date: 10/14/13 1:09:00, Stop date: 11/13/13 1:08:00 Water 1000 2013-0 No Special [place] MG/ML 7-29 Instructio l Injectable 05:34: ns: For Herm shelton Solution 00 IMU and ICU use only. See Order Comments!! Magnesium 2014-0 No 2 gm, 50 [place] Sulfate 7-29 mL, Route: l 03:19: IVPB, Drug Mobile form: INJ, PRN, Dosing Weight 118.5, kg, PRN Abnormal Lab Result, Start date: 10/13/13 22:19:00, Duration: 30 day, Stop date: 11/12/13 22:18:00 Sodium 2014-0 No 18 mmol, 6 Memor ia Phosphate, 7-29 mL, Route: l Monobasic 03:19: IVPB, PRN, He rmann Dosing Weight 118.5, kg, PRN Abnormal Lab Result, Start date: 10/13/13 22:19:00, Duration: 30 day, Stop date: 11/12/13 22:18:00 Calcium 2014-0 No 1 gm, 10 Memori a Chloride 7-29 mL, Route: l 03:19: IVPB, PRN, Demar Dosing Weight 118.5, kg, PRN Abnormal Lab Result, Start date: 10/13/13 22:19:00, Duration: 30 day, Stop date: 11/12/13 22:18:00 Potassium 2014-0 No Notes: Memori a Chloride 7-29 (Same as: l 03:19: KCL) Demar 00 Infuse no faster than 10 mEq/hr if given peripheral ly. Sodium 2014-0 No 1,000 mL, Memori a Chloride 3% 7-29 Rate: 150 l (Hypertonic 02:19: ml/hr, Herm shelton ) IV 1000 00 Infuse mL over: 6.7 hr, Route: IV, Dosing Weight 118.5 kg, Total Volume: 1,000, Start date: 10/13/13 21:19:00, Duration: 30 day, Stop date: 11/12/13 21:18:00 Water 1000 No Special [place] MG/ML 10-14 Instructio l Injectable 02:00: ns: For Herm shelton Solution 00 IMU and ICU use only. See Order Comments!! sterile No Special Memoria water INJ 10-14 Instructio l 1000 ml 01:48: ns: For Demar 457.25 mL + 00 IMU and sodium ICU use chloride only. See 171 mEq Order Comments!! sterile No Notes: Memoria water - (Same as: l 871.75 mL + 00:31: Hypertonic Mobile sodium 00 Saline 3%) chloride 513 mEq Water 1000 No Special [place] MG/ML 10-13 Instructio l Injectable 23:22: ns: For Herm shelton Solution 00 IMU and ICU use only. See Order Comments!! Magnesium No 2 gm, 50 [place] Sulfate - mL, Route: l 23:00: IVPB, Drug Demar 00 form: INJ, Q2H, Dosing Weight 118.5, kg, Total dose = 4 gm, Start date: 10/13/13 18:00:00, Duration: 2 doses or times, Stop date: 10/13/13 20:00:00 chlorhexidi No Notes: [place] ne 10-13 (Same As: l gluconate 17:00: Peridex) Herm shelton 1.2 MG/ML 00 Mouthwash Sodium No Notes: Memoria Chloride 3% 10-13 "Administe l (Hypertonic 16:06: r by Mauricio rizo ) IV 500 mL 00 central venous catheter or a peripheral ly inserted central catheter (PICC) line. 3% Sodium Chloride may be infused via peripheral administra tion into large vein (antecubit al) only in the case of emergency for short term use until a central line can be inserted" (Same as: Hypertonic Saline 3%) Vecuronium No Notes: Memor ia 10-13 (Same As: l 14:02: Norcuron) Demar 00 Buspar No 30 mg, 3 Memoria -28 tab, l 14:00: Route: PO, Demar 00 Drug form: TAB, Q12H, Dosing Weight 118.5, kg, Start date: 10/13/13 9:00:00, Duration: 30 day, Stop date: 11/11/13 21:00:00 Dexmedetomi No Notes: [place] dine 0.004 10-13 (Same as: l MG/ML 13:49: Precedex) Mobile Injectable 00 Solution [Precedex] Water 1000 No Special Tom virgiina MG/ML 10-13 Instructio l Injectable 13:06: ns: For Herm shelton Solution 00 IMU and ICU use only. See Order Comments!! Sodium 2013- No 30 mL, Memoria Chloride 4 10-13 Route: IV, l MEQ/ML 06:06: ONCE, Demar Injectable 00 Dosing Solution Weight 118.5 kg, Start date: 10/13/13 1:06:00, Duration: 1 doses or times, Stop date: 10/13/13 1:06:00 Sodium 2013- No 30 mL, Memoria Chloride 4 10-13 Route: IV, l MEQ/ML 05:40: ONCE, Mobile Injectable 00 Dosing Solution Weight 118.5 kg, Start date: 10/13/13 0:40:00, Duration: 1 doses or times, Stop date: 10/13/13 0:40:00 Sodium 2013- No 60 mL, Memoria Chloride 4 10-13 Route: IV, l MEQ/ML 05:27: ONCE, Demar Injectable 00 Dosing Solution Weight 118.5 kg, Start date: 10/13/13 0:27:00, Duration: 1 doses or times, Stop date: 10/13/13 0:27:00 magnesium 2013- No 4 gm, 100 Mem oria sulfate 10-13 mL, Route: l 03:11: IVPB, Drug form: INJ, ONCE, Start date: 10/12/13 22:11:00, Stop date: 10/12/13 22:11:00 potassium 2013- No Notes: Memori a chloride 10-13 (Same as: l 03:00: KCL) Mobile 00 Infuse no faster than 10 mEq/hr if given peripheral ly. Potassium 2013-0 No 40 mEq, Memor ia Chloride - Route: IV, l 02:38: ONCE, Demar Dosing Weight 118.5, kg, Start date: 10/12/13 21:38:00, Stop date: 10/12/13 21:38:00 Magnesium 2014-0 No Route: IV, Me moria Sulfate 7-28 ONCE, l 02:37: Dosing Demar 00 Weight 118.5, kg, Start date: 10/12/13 21:37:00, Stop date: 10/12/13 21:37:00 Calcium 2013-0 No 1,000 mg, Memor ia Gluconate 7- 10 mL, l 02:35: Route: Demar IVPB, ONCE, Dosing Weight 118.5, kg, Start date: 10/12/13 21:35:00, Stop date: 10/12/13 21:35:00 Sodium 2013-0 No 500 mL, Memoria Chloride 3% 7- Rate: 150 l (Hypertonic 23:57: ml/hr, Herm shelton ) IV 500 mL 00 Infuse over: 3.3 hr, Route: IV, Dosing Weight 118.5 kg, Total Volume: 500, Start date: 10/12/13 18:57:00, Duration: 1 doses or times, Stop date: 10/13/13 15:48:00 sodium 2013-0 No 171 mEq, Memoria chloride + 7-27 42.75 mL, l sterile 14:00: 500 ml/hr, Herm shelton water 00 Route: IV, 457.25 mL Drug Form: INJ, ONCE, Start date: 10/12/13 9:00:00, Stop date: 10/12/13 9:00:00 Water 1000 No Special [place] MG/ML 7-27 Instructio l Injectable 13:24: ns: For Herm shelton Solution 00 IMU and ICU use only. See Order Comments!! Water 1000 No Special [place] MG/ML 7-27 Instructio l Injectable 11:53: ns: For Herm shelton Solution 00 IMU and ICU use only. See Order Comments!! Sodium 2013-0 No Notes: Memoria Chloride 3% 7-27 "Administe l (Hypertonic 11:16: r by Mauricio rizo ) IV 500 mL 00 central venous catheter or a peripheral ly inserted central catheter (PICC) line. 3% Sodium Chloride may be infused via peripheral administra tion into large vein (antecubit al) only in the case of emergency for short term use until a central line can be inserted" (Same as: Hypertonic Saline 3%) Hydromorpho 2013-0 No 1 mg, Memor ia ne 7-27 Route: l 10:56: IVP, ONCE, Mobile 00 Dosing Weight 118.5, kg, Priority: STAT, Start date: 10/12/13 5:56:00, Stop date: 10/12/13 5:56:00 Sodium 2014-0 No 120 mEq, Memoria Chloride 4 7-27 30 mL, 60 l MEQ/ML 09:00: ml/hr, Mobile Injectable 00 Infuse Solution Over: 30 minutes, Route: IV, 30, Drug form: INJ, ONCE, Dosing Weight 118.5 kg, Start date: 10/12/13 4:00:00, Duration: 1 doses or times, Stop date: 10/12/13 4:00:00 Sodium 2014-0 No 30 mL, 60 Memori a Chloride 4 7-26 ml/hr, l MEQ/ML 16:48: Infuse Demar Injectable 00 Over: 30 Solution minutes, Route: IV, ONCE, Dosing Weight 118.5 kg, Start date: 10/11/13 11:48:00, Duration: 1 doses or times, Stop date: 10/11/13 11:48:00 Vecuronium 2013-0 No Notes: Memor ia 7-26 (Same As: l 16:48: Norcuron) Fentanyl 2013-0 No 1,000 Memoria 7-26 microgram, l 16:47: 20 mL, Mobile 00 Rate: Titrate as directed, Dosing Weight 118.5, kg, Route: IV, Total Volume: 20 mL, Start Date: 10/11/13 11:47:00, Duration: 30 day, Stop date: 11/10/13 11:46:00, Replace Every: 24 hr Sodium 2014-0 No 500 mL, Memoria Chloride 7-26 500 ml/hr, l 0.154 12:16: Infuse Mobile MEQ/ML 00 Over: 1 Injectable hr, Route: Solution IV, 500, Drug form: INJ, ONCE, Priority: STAT, Dosing Weight 118.5 kg, Start date: 10/11/13 7:16:00, Duration: 1 doses or times, Stop date: 10/11/13 7:16:00 potassium 2013-0 No Notes: Memori a chloride 7-26 (Same as: l 11:30: Potassium Demar Chloride) magnesium 2013- No 2 gm, 50 [place] sulfate 7-26 mL, Route: l 11:00: IVPB, Drug Demar 00 form: INJ, ONCE, Start date: 10/11/13 6:00:00, Stop date: 10/11/13 6:00:00 Fentanyl No 1,000 Memoria 7-26 microgram, l 03:11: 20 mL, Mobile 00 Rate: Titrate as directed, Dosing Weight 118.5, kg, Route: IV, Total Volume: 20 mL, Start Date: 10/10/13 22:11:00, Duration: 30 day, Stop date: 11/09/13 22:10:00, Replace Every: 24 hr calcium 2013- No 3 gm, 30 Memori a gluconate + 7-26 mL, Route: l Sodium 01:00: IV, ONCE, Mauricio n Chloride 00 Start 0.9% IV 50 date: mL 10/10/13 20:00:00, Stop date: 10/10/13 20:00:00 potassium 2013-0 No Notes: Memori a phosphate + 7-26 (Same as: l Sodium 00:30: K Demar Chloride 00 Phosphate. 0.9% IV 250 ) 1 mMol mL phoshate has 1.47 mEq potassium Infuse over 4 hours Fentanyl No Notes: Memoria 7-26 (Same as: l 00:18: Sublimaze) Mobile 00 Preservati ve free. magnesium 2013- No 2 gm, 50 [place] sulfate 7-25 mL, Route: l 23:37: IVPB, Drug Mobile 00 form: INJ, ONCE, Start date: 10/10/13 18:37:00, Stop date: 10/10/13 18:37:00 Calcium 2013-0 No 1,000 mg, Memor ia Gluconate 7-25 Route: l 23:00: IVPB, Drug Mobile 00 form: INJ, Q2H, Dosing Weight 118.5, kg, Start date: 10/10/13 18:00:00, Duration: 2 doses or times, Stop date: 10/10/13 20:00:00 Magnesium 2014-0 No 2 gm, Memoria Sulfate 7-25 Route: l 23:00: IVPB, Drug Demar 00 form: INJ, Q2H, Dosing Weight 118.5, kg, Total dose = 4 gm, Start date: 10/10/13 18:00:00, Duration: 2 doses or times, Stop date: 10/10/13 20:00:00 Mannitol 2014-0 No 50 gm, Memoria 7-25 Route: l 21:01: IVPB, Demar 00 ONCE, Dosing Weight 118.5, kg, Start date: 10/10/13 16:01:00, Stop date: 10/10/13 16:01:00 Sodium 2014-0 No 1,000 mL, Memori a Chloride 7-25 1,000 l 0.154 19:24: ml/hr, Demar MEQ/ML 00 Infuse Injectable Over: 1 Solution hr, Route: IV, ONCE, Priority: STAT, Dosing Weight 118.5 kg, Start date: 10/10/13 14:24:00, Duration: 1 doses or times, Stop date: 10/10/13 14:24:00 calcium 2014-0 No 2,000 mg, Memor ia gluconate + -25 20 mL, l Sodium 11:30: Route: IV, Chiquita nn Chloride 00 ONCE, 0.9% IV 100 Start mL date: 10/10/13 6:30:00, Stop date: 10/10/13 6:30:00 potassium 2013-0 No Notes: Memori a chloride 7-25 (Same as: l 11:00: Potassium Mobile 00 Chloride) Omnipaque 2014-0 No 100 mL, Memor ia 300 7-24 Route: l 20:10: INTRAARTER Mobile 00 IAL, Dosing Weight 118.5, kg, ONCE, Start date: 10/09/13 15:10:00, Stop date: 10/09/13 15:10:00 Verapamil 2014-0 No 10 mg, Memori a 7-24 Route: l 19:32: INTRAARTER Mobile 00 IAL, ONCE, Dosing Weight 118.5, kg, Start date: 10/09/13 14:32:00, Stop date: 10/09/13 14:32:00 Nicardipine 2013-0 No 5 mg, Memor ia 724 Route: l 19:32: INTRAARTER Demar 00 IAL, ONCE, Dosing Weight 118.5, kg, Start date: 10/09/13 14:32:00, Stop date: 10/09/13 14:32:00 Nitroglycer 2013-0 No 200 Memori a in 7-24 microgram, l 19:32: Route: Mobile 00 INTRAARTER IAL, ONCE, Dosing Weight 118.5, kg, Start date: 10/09/13 14:32:00, Stop date: 10/09/13 14:32:00 Verapamil 2014-0 No 10 mg, Memori a 724 Route: l 19:08: INTRAARTER Demar 00 IAL, ONCE, Dosing Weight 118.5, kg, Start date: 10/09/13 14:08:00, Stop date: 10/09/13 14:08:00 Nicardipine 2013-0 No 5 mg, Memor ia 10-09 Route: l 19:08: INTRAARTER Mobile 00 IAL, ONCE, Dosing Weight 118.5, kg, Start date: 10/09/13 14:08:00, Stop date: 10/09/13 14:08:00 Nitroglycer 2013-0 No 200 Memori a in 7-24 microgram, l 19:08: Route: Demar 00 INTRAARTER IAL, ONCE, Dosing Weight 118.5, kg, Start date: 10/09/13 14:08:00, Stop date: 10/09/13 14:08:00 calcium 2014-0 No 3,000 mg, Memor ia gluconate + 10-09 30 mL, l Sodium 11:30: Route: Mobile Chloride 00 IVPB, 0.9% IV 100 ONCE, mL Start date: 10/09/13 6:30:00, Stop date: 10/09/13 6:30:00 sodium 2013-0 No Notes: Memoria phosphate + 24 (Same as: l Sodium 11:30: Na Demar Chloride 00 Phosphate, 0.9% IV 250 Na PO4) mL Fentanyl 2013-0 No 100 Memoria 7-24 microgram, l 09:42: Route: Demar 00 IVP, Drug form: INJ, ONCE, Dosing Weight 118.5, kg, Start date: 10/09/13 4:42:00, Stop date: 10/09/13 4:42:00 Ancef + 2013-0 No Notes: Memoria Sodium 10-09 (Same As: l Chloride 05:00: Ancef, Mobile 0.9% IV 100 00 Kefzol) mL Verapamil 2013-0 No 10 mg, Memori a 7 Route: l 00:56: INTRAARTER Demar 00 IAL, ONCE, Dosing Weight 118.5, kg, Start date: 10/08/13 19:56:00, Stop date: 10/08/13 19:56:00 Nicardipine 2013-0 No 5 mg, Memor ia 724 Route: l 00:56: INTRAARTER Mobile 00 IAL, ONCE, Dosing Weight 118.5, kg, Start date: 10/08/13 19:56:00, Stop date: 10/08/13 19:56:00 Nitroglycer 2013-0 No 200 Memori a in 7-24 microgram, l 00:56: Route: Demar 00 INTRAARTER IAL, ONCE, Dosing Weight 118.5, kg, Start date: 10/08/13 19:56:00, Stop date: 10/08/13 19:56:00 Omnipaque 2013-0 No 150 ml, Memor ia 300 10-09 Route: l 00:56: INTRAARTER Demar 00 IAL, Dosing Weight 118.5, kg, ONCE, Start date: 10/08/13 19:56:00, Stop date: 10/08/13 19:56:00 Sodium 2013-0 No 30 mL, 60 Memori a Chloride 4 7 ml/hr, l MEQ/ML 23:37: Infuse Mobile Injectable 00 Over: 30 Solution minutes, Route: IV, ONCE, Dosing Weight 118.5 kg, Start date: 10/08/13 18:37:00, Duration: 1 doses or times, Stop date: 10/08/13 18:37:00 Sodium 2014-0 No Notes: Memoria Chloride 3% 7 "Administe l (Hypertonic 23:07: r by Mauricio rizo ) IV 500 mL 00 central venous catheter or a peripheral ly inserted central catheter (PICC) line. 3% Sodium Chloride may be infused via peripheral administra tion into large vein (antecubit al) only in the case of emergency for short term use until a central line can be inserted" (Same as: Hypertonic Saline 3%) Sodium No 30 mL, 60 Memori a Chloride 4 7-23 ml/hr, l MEQ/ML 21:29: Infuse Mobile Injectable 00 Over: 30 Solution minutes, Route: IV, ONCE, Dosing Weight 118.5 kg, Start date: 10/08/13 16:29:00, Duration: 1 doses or times, Stop date: 10/08/13 16:29:00 Water 1000 No Special [place] MG/ML 7-23 Instructio l Injectable 17:14: ns: For Herm shelton Solution 00 IMU and ICU use only. See Order Comments!! Water 1000 No Special [place] MG/ML 7-23 Instructio l Injectable 17:13: ns: For Herm shelton Solution 00 IMU and ICU use only. See Order Comments!! Calcium No 1,000 mL, Memor ia Chloride 7-23 1,000 l 0.0014 08:14: ml/hr, Mobile MEQ/ML / 00 Infuse Potassium Over: 1 Chloride hr, Route: 0.004 IV, 1,000, MEQ/ML / Drug form: Sodium INJ, ONCE, Chloride Priority: 0.103 STAT, MEQ/ML / Dosing Sodium Weight Lactate 118.5 kg, 0.028 Start MEQ/ML date: Injectable 10/08/13 Solution 3:14:00, Duration: 1 doses or times, Stop date: 10/08/13 3:14:00 potassium No Notes: Memori a acetate 2 7-23 Always l mEq/mL 07:00: ordered as Chiquita nn intravenous 00 ___ mEq solution + per 100 ml Sodium -Send 1 Chloride syringe 0.9% IV 100 for each mL 100 ml - MUST be diluted - Add to 100ml of IV fluids before administra tion Maximum concentrat ion Peripheral Line (0.08 mEq/mL) Central Line (0.15 mEq/mL) (Same as: K Acetate) calcium No 3,000 mg, Memor ia gluconate + 7-23 30 mL, l Sodium 07:00: Route: Mobile Chloride 00 IVPB, 0.9% IV 100 ONCE, mL Start date: 10/08/13 2:00:00, Stop date: 10/08/13 2:00:00 Potassium No 20 mEq, Memor ia Acetate 10-08 Route: l 05:33: IVPB, Demar 00 ONCE, Dosing Weight 118.5, kg, Start date: 10/08/13 0:33:00, Stop date: 10/08/13 0:33:00 LR IV 1,000 2013- No 1,000 mL, M emoria mL 10-07 Rate: 150 l 19:53: ml/hr, Infuse over: 6.7 hr, Route: IV, Dosing Weight 118.5 kg, Total Volume: 1,000, Start date: 10/07/13 14:53:00, Duration: 30 day, Stop date: 11/06/13 14:52:00 Midazolam 1 No Notes: [place] MG/ML 10-07 (Same as: l Injectable 17:09: Versed) Herm shelton Solution meropenem No Notes: Memori a 10-07 Same as l 14:00: Merrem.. Demar 00 Protonix No Notes: For Mem oria 10-07 IV push l 14:00: reconstitu te with 10 ml 0.9% sodium chloride and push over 2 minutes. (Same as: Protonix) Zyvox No 600 mg, Memoria -22 300 mL, l 14:00: Route: Mobile 00 IVPB, Drug form: SOLN, [id number], Dosing Weight 118.5, kg, Start date: 10/07/13 9:00:00, Stop date: 11/06/13 4:00:00 calcium No 3,000 mg, Memor ia gluconate + 10-07 30 mL, l Sodium 13:30: Route: Mobile Chloride 00 IVPB, 0.9% IV 50 ONCE, mL Start date: 10/07/13 8:30:00, Stop date: 10/07/13 8:30:00 potassium No Notes: Memori a chloride 10-07 (Same as: l 13:00: KCL) Mobile 00 Infuse no faster than 10 mEq/hr if given peripheral ly. iodixanol No Notes: Memori a - (Same as: l 12:30: Visipaque) . iodixanol No Special Memor ia 10-07 Instructio l 11:19: ns: Dose = 2.2ml/kg, Max dose = 100ml -- "To be infused by Radiology Staff ONLY" Rocuronium No Notes: Memor ia 10-07 (Same as: l 10:49: Zemeron) Fentanyl No 1,000 Memoria 10-07 microgram, l 10:35: 20 mL, Rate: Titrate as directed, Dosing Weight 118.5, kg, Route: IV, Total Volume: 20 mL, Start Date: 10/07/13 5:35:00, Duration: 30 day, Stop date: 11/06/13 5:34:00, Replace Every: 24 hr fosphenytoi No Notes: [place] n 10-07 (Same as: l 09:58: Cerebyx) Stated mg = mgPE. Refriger ate ANTICONVUL DERRICK Do not confuse with celebrex. Ofirmev No Notes: Memoria 10-07 Infuse l 08:34: over 15 minutes Do not exceed 4gm/day of acetaminop hen Iohexol No Notes: Memoria 7-22 (Same l 08:18: as:Omnipaq Mobile 00 ue 350). Sodium No 1,000 mL, Memori a Chloride 10-07 1,000 l 0.154 04:25: ml/hr, Mobile MEQ/ML 00 Infuse Injectable Over: 1 Solution hr, Route: IV, 1,000, Drug form: INJ, ONCE, Priority: STAT, Dosing Weight 118.5 kg, Start date: 10/06/13 23:25:00, Duration: 1 doses or times, Stop date: 10/06/13 23:25:00 Rocuronium No Notes: Memor ia 22 (Same as: l 04:24: Zemeron) Sodium No 1,000 mL, Memori a Chloride 10-07 1,000 l 0.154 04:24: ml/hr, Demar MEQ/ML 00 Infuse Injectable Over: 1 Solution hr, Route: IV, 1,000, Drug form: INJ, ONCE, Priority: STAT, Dosing Weight 118.5 kg, Start date: 10/06/13 23:24:00, Duration: 1 doses or times, Stop date: 10/06/13 23:24:00 Sodium 2013- No 1,000 mL, Memori a Chloride 722 1,000 l 0.154 04:23: ml/hr, Demar MEQ/ML 00 Infuse Injectable Over: 1 Solution hr, Route: IV, 1,000, Drug form: INJ, ONCE, Priority: STAT, Dosing Weight 118.5 kg, Start date: 10/06/13 23:23:00, Duration: 1 doses or times, Stop date: 10/06/13 23:23:00 Rocuronium No Notes: Memor ia 10-07 (Same as: l 04:10: Zemeron) Mobile 00 norepinephr No 242 mL, Mem oria ine 8 mg + 10-07 Rate: Use l Sodium 03:11: as Demar Chloride 00 direced, 0.9% Dosing (titrate) Weight 242 mL 118.5, kg, Route: IV, Total Volume: 250 mL, Start Date: 10/06/13 22:11:00, Duration: 30 day, Stop date: 11/05/13 22:10:00, Replace Every: 24 hr Propofol 10 No Notes: If M emoria MG/ML 10-07 Diprivan - l Injectable 03:11: change Chiquita nn Suspension 00 bottle & tubing every 12 hr Per state nursing law propofol can only be given by a nurse if patient is intubated or being intubated (unless the nurse is a SPOUT TENDER). Same as: Diprivan PlasmaLyte No 1,000 mL, Me moria A PH-7.4 10-07 Rate: 150 l 1,000 mL 03:10: ml/hr, Demar 00 Infuse over: 6.7 hr, Route: IV, Dosing Weight 118.5 kg, Total Volume: 1,000, Start date: 10/06/13 22:10:00, Duration: 30 day, Stop date: 11/05/13 22:09:00 Ketorolac No 4 days. [place] Tromethamin 10-07 l e 15 MG/ML 00:36: Mobile Injectable 00 Solution Lactulose No Notes: Memori a 7-21 (Same l 22:22: as:Chronul Mobile 00 ac) molasses No Notes: Memoria 7-21 (Same l 16:27: as:Molasse Demar 00 s) Acetaminoph No Notes: Do M emoria en 325 MG / 10-06 not exceed l Hydrocodone 16:06: 4gm/day of Demar Bitartrate 00 acetaminop 10 MG Oral hen. (Same Tablet as: Platter 325/10) Acetaminoph No Notes: [place] en 325 MG / 10-06 (Same as: l Hydrocodone 16:06: Platter Chiquita nn Bitartrate 00 325/5) Do 5 MG Oral not exceed Tablet 4gm/day of acetaminop hen. Oxycodone No Notes: Memori a Hydrochlori 10-06 (Same as: l de 5 MG 16:06: Roxicodone Herm shelton Oral Tablet 00 ) magnesium No Notes: Memori a citrate - (Same as: l 11:31: Citrate of Mobile 00 Magnesia) Mannitol No Notes: Memoria 7-21 (Same as: l 11:31: Osmitrol) "Infuse through 0.2 micron filter" Morphine No Notes: Memoria 7-21 (Same l 11:30: as:MORPhin Demar 00 e Sulfate) potassium No Notes: Memori a chloride - (Same as: l 09:00: KCL) Infuse no faster than 10 mEq/hr if given peripheral ly. NS 1,000 mL No 1,000 mL, M emoria 10-06 Rate: 75 l 08:44: ml/hr, Mobile Infuse over: 13.3 hr, Route: IV, Dosing Weight 115.8 kg, Total Volume: 1,000, Start date: 10/06/13 3:44:00, Duration: 30 day, Stop date: 11/05/13 3:43:00 calcium No 3,000 mg, Memor ia gluconate + 7-21 30 mL, l Sodium 08:00: Route: Demar Chloride 00 IVPB, 0.9% IV 100 ONCE, mL Start date: 10/06/13 3:00:00, Stop date: 10/06/13 3:00:00 sodium No Notes: Memoria phosphate + 7-21 (Same as: l Sodium 08:00: Na Demar Chloride 00 Phosphate, 0.9% IV 250 Na PO4) mL Simethicone No Notes: [place] 7-21 (Same as: l 04:06: Mylicon, Demar 00 Phazyme, Genasyme) Dexmedetomi No Notes: [place] dine 0.004 7-20 (Same as: l MG/ML 19:41: Precedex) Demar Injectable 00 Solution [Precedex] potassium No Notes: Memori a chloride 7-20 (Same as: l 08:30: Potassium Mobile 00 Chloride) calcium No 3,000 mg, Memor ia gluconate + 7-20 30 mL, l Sodium 08:30: Route: Mobile Chloride 00 IVPB, 0.9% IV 100 ONCE, mL Start date: 10/05/13 3:30:00, Stop date: 10/05/13 3:30:00 potassium No Notes: Memori a chloride 7-19 (Same as: l 12:00: Potassium Demar 00 Chloride) magnesium No 2 gm, 50 [place] sulfate 7-19 mL, Route: l 11:25: IVPB, Drug Mobile 00 form: INJ, ONCE, Start date: 10/04/13 6:25:00, Stop date: 10/04/13 6:25:00 Mannitol No Notes: Memoria 7-19 (Same as: l 10:09: Osmitrol) Demar 00 "Infuse through 0.2 micron filter" Mannitol No Notes: Memoria 7-19 (Same as: l 03:31: Osmitrol) Mobile 00 "Infuse through 0.2 micron filter" Fentanyl No Notes: Memoria 7-19 (Same as: l 03:29: Sublimaze) Mobile 00 Preservati ve free. Saline 2014-0 No Notes: Memoria Flush 0.9% 7-18 Same as: l 21:00: BD Demar 00 Posiflush Sterile Saline No Notes: Memoria Flush 0.9% 7-18 Same as: l 16:13: BD Mobile 00 Posiflush Sterile dexmedetomi No Notes: [place] dine 4 7-18 (Same as: l microgram 14:03: Precedex) Her adams dexmedetomi No 50 mL, [place] dine 7-18 Rate: 5.79 l additive 13:47: ml/hr, Mobile 200 00 Infuse microgram over: 8.6 [0.2 hr, Route: microgram/k IV, Dosing g/hr] + Weight Premix 115.8 kg, Diluent Total Sodium Volume: Chloride 50, Start 0.9% date: 10/03/13 8:47:00, Duration: 30 day, Stop date: 11/02/13 8:46:00 Captopril No Notes: Memori a 7-18 Give on l 13:00: empty Demar 00 stomach. 1 hour before meal. (Same As: Capoten) Fentanyl No Notes: Memoria 7-18 (Same as: l 09:54: Sublimaze) Demar 00 Preservati ve free. potassium No Notes: Memori a chloride -18 (Same as: l 07:43: Potassium Mobile 00 Chloride) Fentanyl No 1,000 Memoria 7-18 microgram, l 05:45: 20 mL, Mobile 00 Rate: Titrate as directed, Dosing Weight 115.8, kg, Route: IV, Total Volume: 20 mL, Start Date: 10/03/13 0:45:00, Duration: 30 day, Stop date: 11/02/13 0:44:00, Replace Every: 24 hr Mannitol No Notes: Memoria 7-18 (Same as: l 02:35: Osmitrol) Mobile 00 "Infuse through 0.2 micron filter" calcium No 3,000 mg, Memor ia gluconate + 7-18 30 mL, l Sodium 00:33: Route: Demar Chloride 00 IVPB, 0.9% IV 150 ONCE, mL Dosing Weight 115.8, kg, Priority: STAT, Start date: 10/02/13 19:33:00, Stop date: 10/02/13 19:33:00 Calcium 2013- No 3,000 mg, Memor ia Gluconate 7-17 30 mL, l 23:42: Route: Mobile 00 IVPB, ONCE, Dosing Weight 115.8, kg, Priority: STAT, Start date: 10/02/13 18:42:00, Stop date: 10/02/13 18:42:00 cefepime No Notes: Memoria 7-17 (Same As: l 23:00: Maxipime) Vancomycin No Notes: Memor ia 7-17 (Same As: l 21:00: Vancocin) Vancomycin FOR IV SET ONLY Tylenol No Notes: Max [place] 7-17 acetaminop l 21:00: hen = 4000mg/day (4 gm/day). (Same as: Tylenol) Labetalol No Notes: Memori a 7-17 Labetalol l 21:00: 300mg tab #16. Refrigerat e. Shake well before using. Give with food. (Same as:Saulo anthony, Trandate) Compound ed Product - formulatio n not commercial ly available* * Ibuprofen No Notes: Memori a 20 MG/ML 7-17 (Same as: l Oral 17:16: Motrin Demar Suspension 00 Children's , Advil Children's ) Take with food. pantoprazol No Notes: For Memoria e 7-17 IV push l 12:30: reconstitu te with 10 ml 0.9% sodium chloride and push over 2 minutes. (Same as: Protonix) potassium No Notes: Memori a chloride 7-17 (Same as: l 11:00: KCL) Infuse no faster than 10 mEq/hr if given peripheral ly. magnesium No 2 gm, 50 [place] sulfate 7-17 mL, Route: l 10:30: IVPB, Drug form: INJ, ONCE, Start date: 10/02/13 5:30:00, Stop date: 10/02/13 5:30:00 calcium No 3,000 mg, Memor ia gluconate + 17 30 mL, l Sodium 10:30: Route: Mobile Chloride 00 IVPB, 0.9% IV 100 ONCE, mL Start date: 10/02/13 5:30:00, Stop date: 10/02/13 5:30:00 potassium No Notes: Memori a phosphate-s 10-02 (Same as: l odium 09:41: Neutra-Soniya Mauricio n phosphate 00 s) Each 250 mg-278 1.25 gm mg-164 mg pkt has oral powder 250mg phosphorou s. Mix w/2.5oz water and stir. Flagyl No Notes: Memoria -17 (Same as: l 01:00: Flagyl) Mobile cefepime No Notes: Memoria -16 (Same As: l 23:00: Maxipime) Mobile Vancomycin No Notes: Memor ia 10-01 (Same As: l 23:00: Vancocin) Mobile 00 Vancomycin FOR IV SET ONLY heparin, No Notes: Memoria porcine 10-01 porcine l 21:00: heparin Demar calcium No 3,000 mg, Memor ia gluconate + 16 30 mL, l Sodium 06:14: Route: Demar Chloride 00 IVPB, 0.9% IV 100 ONCE, mL Priority: STAT, Start date: 10/01/13 1:14:00, Stop date: 10/01/13 1:14:00 chlorhexidi No Notes: [place] ne 10-01 (Same As: l gluconate 05:00: Peridex) Herm shelton 1.2 MG/ML 00 Mouthwash [Peridex] Propofol 10 No Notes: If M emoria MG/ML 10-01 Diprivan - l Injectable 03:01: change Chiquita nn Suspension 00 bottle & tubing every 12 hr Per state nursing law propofol can only be given by a nurse if patient is intubated or being intubated (unless the nurse is a SPOUT TENDER). Same as: Diprivan Omnipaque No 150 ml, Memor ia 300 10-01 Route: l 02:22: INTRAARTER Demar 00 IAL, Dosing Weight 115.8, kg, ONCE, Start date: 09/30/13 21:22:00, Stop date: 09/30/13 21:22:00 Pravastatin No 40 mg, [place] 7-16 Route: PO, l 02:00: Drug form: Mobile 00 TAB, Bedtime, Dosing Weight 115.4, kg, Start date: 09/30/13 21:00:00, Duration: 30 day, Stop date: 10/29/13 21:00:00 potassium 2013-0 No Notes: Memori a chloride 7-16 (Same as: l 01:00: KCL) Infuse no faster than 10 mEq/hr if given peripheral ly. Nitroglycer No 200 Memori a in 7-15 microgram, l 23:38: Route: Demar 00 INTRAARTER IAL, ONCE, Dosing Weight 115.8, kg, Start date: 09/30/13 18:38:00, Stop date: 09/30/13 18:38:00 Pravastatin 0 No Notes: [place] 7-15 (Same as: l 22:00: Pravachol) Mobile 00 Sodium No 1,000 mL, Memori a Chloride 7-15 1,000 l 0.154 17:36: ml/hr, Demar MEQ/ML 00 Infuse Injectable Over: 1 Solution hr, Route: IV, ONCE, Priority: STAT, Dosing Weight 115.8 kg, Start date: 09/30/13 12:36:00, Duration: 1 doses or times, Stop date: 09/30/13 12:36:00 Nimodipine 2013-0 No Notes: Memor ia 3 MG/ML 7-15 (Same as l Oral 17:00: Nimodipine Mobile Solution 00 oral suspension 30mg/ml) Instill dose into NG tube and then flush with 30ml of NS Protonix No 40 mg, 1 Memor ia 7-15 pkt, l 16:00: Route: PO, Mobile 00 Drug form: GRAN/REC, Daily, Dosing Weight 115.4, kg, Start date: 09/30/13 11:00:00, Duration: 30 day, Stop date: 10/30/13 9:00:00 sennosides, 2013-0 No Notes: [place] [facility] 7-15 (Same as: l 14:00: Senokot) Mobile 00 Docusate No 100 mg, 1 [place] Sodium 100 7-15 cap, l MG Oral 14:00: Route: PO, Herm shelton Capsule 00 BID, [Colace] Dosing Weight 115.4, kg, Start date: 09/30/13 9:00:00, Duration: 30 day, Stop date: 10/29/13 17:00:00 Ranitidine No Notes: Memor ia 15 MG/ML 7-15 (Same l Oral 14:00: as:Zantac) Demar Solution 00 Non-Formul [Zantac] daryl Item Saline No Notes: Memoria Flush 0.9% 7-15 (Same as: l 14:00: BD Demar 00 Posiflush) Docusate No Notes: Memoria Sodium 100 7-15 (Same as: l MG Oral 14:00: Colace) Demar Capsule 00 pantoprazol No Notes: [place] e 7-15 (Same as: l 14:00: Protonix) Mobile 00 Levetiracet No Notes: [place] am 7-15 (Same l 14:00: as:Keppra) Demar 00 Sodium No 1,000 mL, Memori a Chloride 7-15 1,000 l 0.154 07:18: ml/hr, Mobile MEQ/ML 00 Infuse Injectable Over: 1 Solution hr, Route: IV, 1,000, Drug form: INJ, ONCE, Priority: STAT, Dosing Weight 115.4 kg, Start date: 09/30/13 2:18:00, Duration: 1 doses or times, Stop date: 09/30/13 2:18:00 potassium No Notes: Memori a chloride 7-15 (Same as: l 07:00: KCL) Demar 00 Infuse no faster than 10 mEq/hr if given peripheral ly. Albuterol Yes Notes: Memori a 0.833 MG/ML 7-15 (Same as: l / 05:00: Duoneb) Ipratropium 00 [place] 0.167 MG/ML Inhalant Solution [DuoNeb] Nimodipine No Notes: Memor ia 7-15 (Same l 05:00: as:Nimotop 00 ) Morphine No Notes: Memoria 7-15 (Same l 04:03: as:MORPhin e Sulfate) Zofran No 4 mg, Memoria 7-15 Route: IV, l 03:59: Drug form: Mobile 00 INJ, Q8H, Dosing Weight 115.4, kg, PRN Nausea, Start date: 09/29/13 22:59:00, Duration: 30 day, Stop date: 10/29/13 22:58:00 Tylenol No Notes: Memoria -15 (Same as: l 03:59: Tylenol) Mobile 00 NS 1,000 mL No 1,000 mL, M emoria 09-30 Rate: 100 l 03:55: ml/hr, Mobile 00 Infuse over: 10 hr, Route: IV, Dosing Weight 115.4 kg, Total Volume: 1,000, Start date: 09/29/13 22:55:00, Duration: 30 day, Stop date: 10/29/13 22:54:00 Labetalol No 10 mg, 2 [place] 7-15 mL, Route: l 03:55: IVP, Drug form: INJ, Q15Min, Dosing Weight 115.4, kg, PRN Hypertensi on, Start date: 09/29/13 22:55:00, Duration: 3 doses or times, Stop date: Limited # of times Regular No 7 unit, Memoria Insulin, 09-30 Route: l Human 100 03:55: SUB-Q, Mauricio n UNT/ML 00 PRN, Injectable Dosing Solution Weight 115.4, kg, PRN Abnormal Lab Result, Start date: 09/29/13 22:55:00, Duration: 30 day, Stop date: 10/29/13 22:54:00 Dextrose No 50 mL, Memoria 50% Syringe 09-30 Route: l 03:55: IVP, Mobile 00 Dosing Weight 115.4, kg, PRN, PRN Abnormal Lab Result, Start date: 09/29/13 22:55:00, Duration: 30 day, Stop date: 10/29/13 22:54:00 Hydralazine No Notes: [place] 7-15 (Same as: l 03:55: Apresoline Mobile 00 ) Regular No 60 units) [place] Insulin, 7-15 Stable for l Human 100 03:52: 28 days at [facility] UNT/ML 00 room Injectable temperatur Solution e Expires in days from ____Date Dextrose No 6.25 gm, Memor ia 50% Syringe 7-15 12.5 mL, l 03:52: Route: Demar 00 IVP, Drug Form: INJ, Dosing Weight 115.4, kg, PRN, PRN Abnormal Lab Result, Start date: 09/29/13 22:52:00, Duration: 30 day, Stop date: 11/28/13 22:51:00 Saline No Notes: Mem[facility] Flush 0.9% 7-15 (Same as: l 03:52: BD Posiflush) Bisacodyl No Notes: Memori a 7-15 (Same As: l 03:52: Dulcolax, Demar 00 Bisco-Lax) Ondansetron No Notes: [place] 7-15 (Same as: l 03:52: Zofran) Labetalol No 10 mg, Memori a 7-15 Route: l 03:52: IVP, Demar 00 Q15Min, Dosing Weight 115.4, kg, PRN Hypertensi on, Start date: 09/29/13 22:52:00, Duration: 3 doses or times, Stop date: Limited # of times Sodium No 1,000 mL, Memori a Chloride 7-15 Rate: 75 l 0.154 03:52: ml/hr, Mobile MEQ/ML 00 Infuse Injectable over: 13.3 Solution hr, Route: IV, Dosing Weight 115.4 kg, Total Volume: 1,000, Start date: 09/29/13 22:52:00, Stop date: 10/29/13 22:51:00 Morphine No Notes: Mem[facility] 7-15 (Same l 03:52: as:MORPhin Demar 00 e Sulfate) fosphenytoi No Special Mem oria n 7-15 Instructio l 03:52: ns: Demar 00 (Loading Dose) Atorvastati Atorvastati No 1{table QD Atorvastat n Calcium n Calcium t} in Calcium 80 MG 80 MG 80 MG Levetiracet Levetiracet No 1{table BID Levetirace am 500 MG am 500 MG t} morales 500 MG Gabapentin Gabapentin No 1{capsu TID Gabapentin 300 MG 300 MG le} 300 MG Tamsulosin Tamsulosin No 1{capsu QD Tamsulosin HCl 0.4 MG HCl 0.4 MG le} HCl 0.4 MG Diclofenac Diclofenac No Diclofenac Sertraline Sertraline No 1{table QD Sertraline HCl 100 MG HCl 100 MG t} HCl 100 MG Trazodone Trazodone No 1{table QD Trazodone HCl 50 MG HCl 50 MG t_at_be HCl 50 MG dtime_a s_neede d} Metformin Metformin No 1{table BID Metformin HCl 1000 MG HCl 1000 MG t_with_ HCl 1000 a_meal} MG Albuterol Albuterol No Albuterol Sulfate Sulfate Sulfate 0.63 MG/3ML 0.63 MG/3ML 0.63 MG/3ML Atorvastati Atorvastati No 1{table QD Atorvastat n Calcium n Calcium t} in Calcium 80 MG 80 MG 80 MG Levetiracet Levetiracet No 1{table BID Levetirace am 500 MG am 500 MG t} morales 500 MG Gabapentin Gabapentin No 1{capsu TID Gabapentin 300 MG 300 MG le} 300 MG Tamsulosin Tamsulosin No 1{capsu QD Tamsulosin HCl 0.4 MG HCl 0.4 MG le} HCl 0.4 MG Diclofenac Diclofenac No Diclofenac Sertraline Sertraline No 1{table QD Sertraline HCl 100 MG HCl 100 MG t} HCl 100 MG Trazodone Trazodone No 1{table QD Trazodone HCl 50 MG HCl 50 MG t_at_be HCl 50 MG dtime_a s_neede d} Metformin Metformin No 1{table BID Metformin HCl 1000 MG HCl 1000 MG t_with_ HCl 1000 a_meal} MG Albuterol Albuterol No Albuterol Sulfate Sulfate Sulfate 0.63 MG/3ML 0.63 MG/3ML 0.63 MG/3ML Atorvastati Atorvastati No 1{table QD Atorvastat n Calcium n Calcium t} in Calcium 80 MG 80 MG 80 MG Levetiracet Levetiracet No 1{table BID Levetirace am 500 MG am 500 MG t} morales 500 MG Gabapentin Gabapentin No 1{capsu TID Gabapentin 300 MG 300 MG le} 300 MG Tamsulosin Tamsulosin No 1{capsu QD Tamsulosin HCl 0.4 MG HCl 0.4 MG le} HCl 0.4 MG Diclofenac Diclofenac No Diclofenac Gabapentin Gabapentin No 1{capsu TID Gabapentin 300 MG 300 MG le} 300 MG Ozempic Ozempic No Ozempic (0.25 or (0.25 or (0.25 or 0.5 0.5 0.5 MG/DOSE) 2 MG/DOSE) 2 MG/DOSE) 2 MG/1.5ML MG/1.5ML MG/1.5ML Metformin Metformin No 1{table BID Metformin HCl 1000 MG HCl 1000 MG t_with_ HCl 1000 a_meal} MG Atorvastati Atorvastati No 1{table QD Atorvastat n Calcium n Calcium t} in Calcium 80 MG 80 MG 80 MG Levetiracet Levetiracet No 1{table BID Levetirace am 500 MG am 500 MG t} morales 500 MG Diclofenac Diclofenac No Diclofenac Trazodone Trazodone No 1{table QD Trazodone HCl 50 MG HCl 50 MG t_at_be HCl 50 MG dtime_a s_neede d} Tamsulosin Tamsulosin No 1{capsu QD Tamsulosin HCl 0.4 MG HCl 0.4 MG le} HCl 0.4 MG Sertraline Sertraline No 1{table QD Sertraline HCl 100 MG HCl 100 MG t} HCl 100 MG Albuterol Albuterol No Albuterol Sulfate Sulfate Sulfate 0.63 MG/3ML 0.63 MG/3ML 0.63 MG/3ML Ozempic Ozempic No Ozempic (0.25 or (0.25 or (0.25 or 0.5 0.5 0.5 MG/DOSE) 2 MG/DOSE) 2 MG/DOSE) 2 MG/1.5ML MG/1.5ML MG/1.5ML Levetiracet Levetiracet No 1{table BID Levetirace am 500 MG am 500 MG t} morales 500 MG Metformin Metformin No 1{table BID Metformin HCl 1000 MG HCl 1000 MG t_with_ HCl 1000 a_meal} MG Diclofenac Diclofenac No Diclofenac Gabapentin Gabapentin No 1{capsu TID Gabapentin 300 MG 300 MG le} 300 MG Sertraline Sertraline No 1{table QD Sertraline HCl 100 MG HCl 100 MG t} HCl 100 MG Tamsulosin Tamsulosin No 1{capsu QD Tamsulosin HCl 0.4 MG HCl 0.4 MG le} HCl 0.4 MG Trazodone Trazodone No 1{table QD Trazodone HCl 50 MG HCl 50 MG t_at_be HCl 50 MG dtime_a s_neede d} Atorvastati Atorvastati No 1{table QD Atorvastat n Calcium n Calcium t} in Calcium 80 MG 80 MG 80 MG Albuterol Albuterol No Albuterol Sulfate Sulfate Sulfate 0.63 MG/3ML 0.63 MG/3ML 0.63 MG/3ML Gabapentin Gabapentin No 1{capsu TID Gabapentin 300 MG 300 MG le} 300 MG Levetiracet Levetiracet No 1{table BID Levetirace am 500 MG am 500 MG t} morales 500 MG Metformin Metformin No 1{table BID Metformin HCl 1000 MG HCl 1000 MG t_with_ HCl 1000 a_meal} MG Atorvastati Atorvastati No 1{table QD Atorvastat n Calcium n Calcium t} in Calcium 80 MG 80 MG 80 MG Albuterol Albuterol No Albuterol Sulfate Sulfate Sulfate 0.63 MG/3ML 0.63 MG/3ML 0.63 MG/3ML Sertraline Sertraline No 1{table QD Sertraline HCl 100 MG HCl 100 MG t} HCl 100 MG Tamsulosin Tamsulosin No 1{capsu QD Tamsulosin HCl 0.4 MG HCl 0.4 MG le} HCl 0.4 MG Trazodone Trazodone No 1{table QD Trazodone HCl 50 MG HCl 50 MG t_at_be HCl 50 MG dtime_a s_neede d} Diclofenac Diclofenac No Diclofenac Levetiracet Levetiracet No 1{table BID Levetirace am 500 MG am 500 MG t} morales 500 MG Metformin Metformin No 1{table BID Metformin HCl 1000 MG HCl 1000 MG t_with_ HCl 1000 a_meal} MG Diclofenac Diclofenac No Diclofenac Gabapentin Gabapentin No 1{capsu TID Gabapentin 300 MG 300 MG le} 300 MG Sertraline Sertraline No 1{table QD Sertraline HCl 100 MG HCl 100 MG t} HCl 100 MG Tamsulosin Tamsulosin No 1{capsu QD Tamsulosin HCl 0.4 MG HCl 0.4 MG le} HCl 0.4 MG Trazodone Trazodone No 1{table QD Trazodone HCl 50 MG HCl 50 MG t_at_be HCl 50 MG dtime_a s_neede d} Atorvastati Atorvastati No 1{table QD Atorvastat n Calcium n Calcium t} in Calcium 80 MG 80 MG 80 MG Albuterol Albuterol No Albuterol Sulfate Sulfate Sulfate 0.63 MG/3ML 0.63 MG/3ML 0.63 MG/3ML Levetiracet Levetiracet No 1{table BID Levetirace am 500 MG am 500 MG t} morales 500 MG Metformin Metformin No 1{table BID Metformin HCl 1000 MG HCl 1000 MG t_with_ HCl 1000 a_meal} MG Diclofenac Diclofenac No Diclofenac Gabapentin Gabapentin No 1{capsu TID Gabapentin 300 MG 300 MG le} 300 MG Sertraline Sertraline No 1{table QD Sertraline HCl 100 MG HCl 100 MG t} HCl 100 MG Tamsulosin Tamsulosin No 1{capsu QD Tamsulosin HCl 0.4 MG HCl 0.4 MG le} HCl 0.4 MG Trazodone Trazodone No 1{table QD Trazodone HCl 50 MG HCl 50 MG t_at_be HCl 50 MG dtime_a s_neede d} Atorvastati Atorvastati No 1{table QD Atorvastat n Calcium n Calcium t} in Calcium 80 MG 80 MG 80 MG Albuterol Albuterol No Albuterol Sulfate Sulfate Sulfate 0.63 MG/3ML 0.63 MG/3ML 0.63 MG/3ML Levetiracet Levetiracet No 1{table BID Levetirace am 500 MG am 500 MG t} morales 500 MG Metformin Metformin No 1{table BID Metformin HCl 1000 MG HCl 1000 MG t_with_ HCl 1000 a_meal} MG Diclofenac Diclofenac No Diclofenac Gabapentin Gabapentin No 1{capsu TID Gabapentin 300 MG 300 MG le} 300 MG Sertraline Sertraline No 1{table QD Sertraline HCl 100 MG HCl 100 MG t} HCl 100 MG Tamsulosin Tamsulosin No 1{capsu QD Tamsulosin HCl 0.4 MG HCl 0.4 MG le} HCl 0.4 MG Trazodone Trazodone No 1{table QD Trazodone HCl 50 MG HCl 50 MG t_at_be HCl 50 MG dtime_a s_neede d} Atorvastati Atorvastati No 1{table QD Atorvastat n Calcium n Calcium t} in Calcium 80 MG 80 MG 80 MG Albuterol Albuterol No Albuterol Sulfate Sulfate Sulfate 0.63 MG/3ML 0.63 MG/3ML 0.63 MG/3ML Levetiracet Levetiracet No 1{table BID Levetirace am 500 MG am 500 MG t} morales 500 MG Metformin Metformin No 1{table BID Metformin HCl 1000 MG HCl 1000 MG t_with_ HCl 1000 a_meal} MG Diclofenac Diclofenac No Diclofenac Gabapentin Gabapentin No 1{capsu TID Gabapentin 300 MG 300 MG le} 300 MG Sertraline Sertraline No 1{table QD Sertraline HCl 100 MG HCl 100 MG t} HCl 100 MG Tamsulosin Tamsulosin No 1{capsu QD Tamsulosin HCl 0.4 MG HCl 0.4 MG le} HCl 0.4 MG Trazodone Trazodone No 1{table QD Trazodone HCl 50 MG HCl 50 MG t_at_be HCl 50 MG dtime_a s_neede d} Atorvastati Atorvastati No 1{table QD Atorvastat n Calcium n Calcium t} in Calcium 80 MG 80 MG 80 MG Albuterol Albuterol No Albuterol Sulfate Sulfate Sulfate 0.63 MG/3ML 0.63 MG/3ML 0.63 MG/3ML Levetiracet Levetiracet No 1{table BID Levetirace am 500 MG am 500 MG t} morales 500 MG Metformin Metformin No 1{table BID Metformin HCl 1000 MG HCl 1000 MG t_with_ HCl 1000 a_meal} MG Diclofenac Diclofenac No Diclofenac Gabapentin Gabapentin No 1{capsu TID Gabapentin 300 MG 300 MG le} 300 MG Sertraline Sertraline No 1{table QD Sertraline HCl 100 MG HCl 100 MG t} HCl 100 MG Tamsulosin Tamsulosin No 1{capsu QD Tamsulosin HCl 0.4 MG HCl 0.4 MG le} HCl 0.4 MG Trazodone Trazodone No 1{table QD Trazodone HCl 50 MG HCl 50 MG t_at_be HCl 50 MG dtime_a s_neede d} Atorvastati Atorvastati No 1{table QD Atorvastat n Calcium n Calcium t} in Calcium 80 MG 80 MG 80 MG Albuterol Albuterol No Albuterol Sulfate Sulfate Sulfate 0.63 MG/3ML 0.63 MG/3ML 0.63 MG/3ML Levetiracet Levetiracet No 1{table BID Levetirace am 500 MG am 500 MG t} morales 500 MG Metformin Metformin No 1{table BID Metformin HCl 1000 MG HCl 1000 MG t_with_ HCl 1000 a_meal} MG Diclofenac Diclofenac No Diclofenac Gabapentin Gabapentin No 1{capsu TID Gabapentin 300 MG 300 MG le} 300 MG Sertraline Sertraline No 1{table QD Sertraline HCl 100 MG HCl 100 MG t} HCl 100 MG Tamsulosin Tamsulosin No 1{capsu QD Tamsulosin HCl 0.4 MG HCl 0.4 MG le} HCl 0.4 MG Trazodone Trazodone No 1{table QD Trazodone HCl 50 MG HCl 50 MG t_at_be HCl 50 MG dtime_a s_neede d} Atorvastati Atorvastati No 1{table QD Atorvastat n Calcium n Calcium t} in Calcium 80 MG 80 MG 80 MG Albuterol Albuterol No Albuterol Sulfate Sulfate Sulfate 0.63 MG/3ML 0.63 MG/3ML 0.63 MG/3ML Levetiracet Levetiracet No 1{table BID Levetirace am 500 MG am 500 MG t} morales 500 MG Metformin Metformin No 1{table BID Metformin HCl 1000 MG HCl 1000 MG t_with_ HCl 1000 a_meal} MG Diclofenac Diclofenac No Diclofenac Gabapentin Gabapentin No 1{capsu TID Gabapentin 300 MG 300 MG le} 300 MG Sertraline Sertraline No 1{table QD Sertraline HCl 100 MG HCl 100 MG t} HCl 100 MG Tamsulosin Tamsulosin No 1{capsu QD Tamsulosin HCl 0.4 MG HCl 0.4 MG le} HCl 0.4 MG Trazodone Trazodone No 1{table QD Trazodone HCl 50 MG HCl 50 MG t_at_be HCl 50 MG dtime_a s_neede d} Atorvastati Atorvastati No 1{table QD Atorvastat n Calcium n Calcium t} in Calcium 80 MG 80 MG 80 MG Albuterol Albuterol No Albuterol Sulfate Sulfate Sulfate 0.63 MG/3ML 0.63 MG/3ML 0.63 MG/3ML Levetiracet Levetiracet No 1{table BID Levetirace am 500 MG am 500 MG t} morales 500 MG Metformin Metformin No 1{table BID Metformin HCl 1000 MG HCl 1000 MG t_with_ HCl 1000 a_meal} MG Diclofenac Diclofenac No Diclofenac Gabapentin Gabapentin No 1{capsu TID Gabapentin 300 MG 300 MG le} 300 MG Sertraline Sertraline No 1{table QD Sertraline HCl 100 MG HCl 100 MG t} HCl 100 MG Tamsulosin Tamsulosin No 1{capsu QD Tamsulosin HCl 0.4 MG HCl 0.4 MG le} HCl 0.4 MG Trazodone Trazodone No 1{table QD Trazodone HCl 50 MG HCl 50 MG t_at_be HCl 50 MG dtime_a s_neede d} Atorvastati Atorvastati No 1{table QD Atorvastat n Calcium n Calcium t} in Calcium 80 MG 80 MG 80 MG Albuterol Albuterol No Albuterol Sulfate Sulfate Sulfate 0.63 MG/3ML 0.63 MG/3ML 0.63 MG/3ML Levetiracet Levetiracet No 1{table BID Levetirace am 500 MG am 500 MG t} morales 500 MG Metformin Metformin No 1{table BID Metformin HCl 1000 MG HCl 1000 MG t_with_ HCl 1000 a_meal} MG Diclofenac Diclofenac No Diclofenac Gabapentin Gabapentin No 1{capsu TID Gabapentin 300 MG 300 MG le} 300 MG Sertraline Sertraline No 1{table QD Sertraline HCl 100 MG HCl 100 MG t} HCl 100 MG Tamsulosin Tamsulosin No 1{capsu QD Tamsulosin HCl 0.4 MG HCl 0.4 MG le} HCl 0.4 MG Trazodone Trazodone No 1{table QD Trazodone HCl 50 MG HCl 50 MG t_at_be HCl 50 MG dtime_a s_neede d} Atorvastati Atorvastati No 1{table QD Atorvastat n Calcium n Calcium t} in Calcium 80 MG 80 MG 80 MG Albuterol Albuterol No Albuterol Sulfate Sulfate Sulfate 0.63 MG/3ML 0.63 MG/3ML 0.63 MG/3ML Levetiracet Levetiracet No 1{table BID Levetirace am 500 MG am 500 MG t} morales 500 MG Metformin Metformin No 1{table BID Metformin HCl 1000 MG HCl 1000 MG t_with_ HCl 1000 a_meal} MG Diclofenac Diclofenac No Diclofenac Gabapentin Gabapentin No 1{capsu TID Gabapentin 300 MG 300 MG le} 300 MG Sertraline Sertraline No 1{table QD Sertraline HCl 100 MG HCl 100 MG t} HCl 100 MG Tamsulosin Tamsulosin No 1{capsu QD Tamsulosin HCl 0.4 MG HCl 0.4 MG le} HCl 0.4 MG Trazodone Trazodone No 1{table QD Trazodone HCl 50 MG HCl 50 MG t_at_be HCl 50 MG dtime_a s_neede d} Atorvastati Atorvastati No 1{table QD Atorvastat n Calcium n Calcium t} in Calcium 80 MG 80 MG 80 MG Albuterol Albuterol No Albuterol Sulfate Sulfate Sulfate 0.63 MG/3ML 0.63 MG/3ML 0.63 MG/3ML Levetiracet Levetiracet No 1{table BID Levetirace am 500 MG am 500 MG t} morales 500 MG Metformin Metformin No 1{table BID Metformin HCl 1000 MG HCl 1000 MG t_with_ HCl 1000 a_meal} MG Diclofenac Diclofenac No Diclofenac Gabapentin Gabapentin No 1{capsu TID Gabapentin 300 MG 300 MG le} 300 MG Sertraline Sertraline No 1{table QD Sertraline HCl 100 MG HCl 100 MG t} HCl 100 MG Tamsulosin Tamsulosin No 1{capsu QD Tamsulosin HCl 0.4 MG HCl 0.4 MG le} HCl 0.4 MG Trazodone Trazodone No 1{table QD Trazodone HCl 50 MG HCl 50 MG t_at_be HCl 50 MG dtime_a s_neede d} Atorvastati Atorvastati No 1{table QD Atorvastat n Calcium n Calcium t} in Calcium 80 MG 80 MG 80 MG Albuterol Albuterol No Albuterol Sulfate Sulfate Sulfate 0.63 MG/3ML 0.63 MG/3ML 0.63 MG/3ML Tamsulosin Tamsulosin No Tamsulosin HCl 0.4 MG HCl 0.4 MG HCl 0.4 MG glipiZIDE glipiZIDE No 1{table QD glipiZIDE ER 5 MG ER 5 MG t_with_ ER 5 MG food} Ketoconazol Ketoconazol No 5{ml} BID Ketoconazo e 2 % e 2 % le 2 % Gabapentin Gabapentin No 1{capsu TID Gabapentin 300 MG 300 MG le} 300 MG Diclofenac Diclofenac No Diclofenac traZODone traZODone No traZODone HCl 50 MG HCl 50 MG HCl 50 MG Ozempic Ozempic No Ozempic (0.25 or (0.25 or (0.25 or 0.5 0.5 0.5 MG/DOSE) 2 MG/DOSE) 2 MG/DOSE) 2 MG/1.5ML MG/1.5ML MG/1.5ML levETIRAcet levETIRAcet No 1{table BID levETIRAce am 500 MG am 500 MG t} morales 500 MG Atorvastati Atorvastati No 1{table QD Atorvastat n Calcium n Calcium t} in Calcium 80 MG 80 MG 80 MG Albuterol Albuterol No Albuterol Sulfate Sulfate Sulfate 0.63 MG/3ML 0.63 MG/3ML 0.63 MG/3ML metFORMIN metFORMIN No 1{table BID metFORMIN HCl 1000 MG HCl 1000 MG t_with_ HCl 1000 a_meal} MG Sertraline Sertraline No 1{table QD Sertraline HCl 100 MG HCl 100 MG t} HCl 100 MG Gabapentin Gabapentin No 1{capsu TID 300 MG 300 MG le} Sertraline Sertraline No 1{table QD HCl 100 MG HCl 100 MG t} glipiZIDE glipiZIDE No 1{table QD ER 5 MG ER 5 MG t_with_ food} Atorvastati Atorvastati No 1{table QD n Calcium n Calcium t} 80 MG 80 MG Ketoconazol Ketoconazol No 5{ml} BID e 2 % e 2 % Tamsulosin Tamsulosin No HCl 0.4 MG HCl 0.4 MG traZODone traZODone No HCl 50 MG HCl 50 MG Diclofenac Diclofenac No Ozempic Ozempic No (0.25 or (0.25 or 0.5 0.5 MG/DOSE) 2 MG/DOSE) 2 MG/1.5ML MG/1.5ML Albuterol Albuterol No Sulfate Sulfate 0.63 MG/3ML 0.63 MG/3ML levETIRAcet levETIRAcet No 1{table BID am 500 MG am 500 MG t} metFORMIN metFORMIN No 1{table BID HCl 1000 MG HCl 1000 MG t_with_ a_meal} Ozempic Ozempic No Ozempic (0.25 or (0.25 or (0.25 or 0.5 0.5 0.5 MG/DOSE) 2 MG/DOSE) 2 MG/DOSE) 2 MG/1.5ML MG/1.5ML MG/1.5ML glipiZIDE glipiZIDE No 1{table QD glipiZIDE ER 5 MG ER 5 MG t_with_ ER 5 MG food} Albuterol Albuterol No Albuterol Sulfate Sulfate Sulfate 0.63 MG/3ML 0.63 MG/3ML 0.63 MG/3ML Diclofenac Diclofenac No Diclofenac metFORMIN metFORMIN No 1{table BID metFORMIN HCl 1000 MG HCl 1000 MG t_with_ HCl 1000 a_meal} MG Baclofen Baclofen No Baclofen losartan losartan No losartan Ketoconazol Ketoconazol No Ketoconazo e 2 % e 2 % le 2 % Gabapentin Gabapentin No 1{capsu TID Gabapentin 300 MG 300 MG le} 300 MG levETIRAcet levETIRAcet No 1{table BID levETIRAce am 500 MG am 500 MG t} morales 500 MG traZODone traZODone No traZODone HCl 50 MG HCl 50 MG HCl 50 MG Atorvastati Atorvastati No 1{table QD Atorvastat n Calcium n Calcium t} in Calcium 80 MG 80 MG 80 MG Keppra Keppra No Keppra traZODone traZODone No traZODone HCl HCl HCl Sertraline Sertraline No 1{table QD Sertraline HCl 100 MG HCl 100 MG t} HCl 100 MG Tamsulosin Tamsulosin No Tamsulosin HCl 0.4 MG HCl 0.4 MG HCl 0.4 MG Albuterol Albuterol No Albuterol Sulfate Sulfate Sulfate 0.63 MG/3ML 0.63 MG/3ML 0.63 MG/3ML Atorvastati Atorvastati No 1{table QD Atorvastat n Calcium n Calcium t} in Calcium 80 MG 80 MG 80 MG Gabapentin Gabapentin No 1{capsu TID Gabapentin 300 MG 300 MG le} 300 MG Sertraline Sertraline No 1{table QD Sertraline HCl 100 MG HCl 100 MG t} HCl 100 MG Levetiracet Levetiracet No 1{table BID Levetirace am 500 MG am 500 MG t} morales 500 MG Tamsulosin Tamsulosin No 1{capsu QD Tamsulosin HCl 0.4 MG HCl 0.4 MG le} HCl 0.4 MG Diclofenac Diclofenac No Diclofenac Trazodone Trazodone No 1{table QD Trazodone HCl 50 MG HCl 50 MG t_at_be HCl 50 MG dtime_a s_neede d} Metformin Metformin No 1{table BID Metformin HCl 1000 MG HCl 1000 MG t_with_ HCl 1000 a_meal} MG Albuterol Albuterol No Albuterol Sulfate Sulfate Sulfate 0.63 MG/3ML 0.63 MG/3ML 0.63 MG/3ML Atorvastati Atorvastati No 1{table QD Atorvastat n Calcium n Calcium t} in Calcium 80 MG 80 MG 80 MG Gabapentin Gabapentin No 1{capsu TID Gabapentin 300 MG 300 MG le} 300 MG Sertraline Sertraline No 1{table QD Sertraline HCl 100 MG HCl 100 MG t} HCl 100 MG Levetiracet Levetiracet No 1{table BID Levetirace am 500 MG am 500 MG t} morales 500 MG Tamsulosin Tamsulosin No 1{capsu QD Tamsulosin HCl 0.4 MG HCl 0.4 MG le} HCl 0.4 MG Diclofenac Diclofenac No Diclofenac Trazodone Trazodone No 1{table QD Trazodone HCl 50 MG HCl 50 MG t_at_be HCl 50 MG dtime_a s_neede d} Metformin Metformin No 1{table BID Metformin HCl 1000 MG HCl 1000 MG t_with_ HCl 1000 a_meal} MG Albuterol Albuterol No Albuterol Sulfate Sulfate Sulfate 0.63 MG/3ML 0.63 MG/3ML 0.63 MG/3ML Atorvastati Atorvastati No 1{table QD Atorvastat n Calcium n Calcium t} in Calcium 80 MG 80 MG 80 MG Gabapentin Gabapentin No 1{capsu TID Gabapentin 300 MG 300 MG le} 300 MG Sertraline Sertraline No 1{table QD Sertraline HCl 100 MG HCl 100 MG t} HCl 100 MG Levetiracet Levetiracet No 1{table BID Levetirace am 500 MG am 500 MG t} morales 500 MG Tamsulosin Tamsulosin No 1{capsu QD Tamsulosin HCl 0.4 MG HCl 0.4 MG le} HCl 0.4 MG Diclofenac Diclofenac No Diclofenac Trazodone Trazodone No 1{table QD Trazodone HCl 50 MG HCl 50 MG t_at_be HCl 50 MG dtime_a s_neede d} Metformin Metformin No 1{table BID Metformin HCl 1000 MG HCl 1000 MG t_with_ HCl 1000 a_meal} MG Sertraline Sertraline No 1{table QD Sertraline HCl 100 MG HCl 100 MG t} HCl 100 MG Trazodone Trazodone No 1{table QD Trazodone HCl 50 MG HCl 50 MG t_at_be HCl 50 MG dtime_a s_neede d} Metformin Metformin No 1{table BID Metformin HCl 1000 MG HCl 1000 MG t_with_ HCl 1000 a_meal} MG Albuterol Albuterol No Albuterol Sulfate Sulfate Sulfate 0.63 MG/3ML 0.63 MG/3ML 0.63 MG/3ML Atorvastati Atorvastati No 1{table QD Atorvastat n Calcium n Calcium t} in Calcium 80 MG 80 MG 80 MG Levetiracet Levetiracet No 1{table BID Levetirace am 500 MG am 500 MG t} morales 500 MG Gabapentin Gabapentin No 1{capsu TID Gabapentin 300 MG 300 MG le} 300 MG Tamsulosin Tamsulosin No 1{capsu QD Tamsulosin HCl 0.4 MG HCl 0.4 MG le} HCl 0.4 MG Diclofenac Diclofenac No Diclofenac Sertraline Sertraline No 1{table QD Sertraline HCl 100 MG HCl 100 MG t} HCl 100 MG Trazodone Trazodone No 1{table QD Trazodone HCl 50 MG HCl 50 MG t_at_be HCl 50 MG dtime_a s_neede d} Metformin Metformin No 1{table BID Metformin HCl 1000 MG HCl 1000 MG t_with_ HCl 1000 a_meal} MG Albuterol Albuterol No Albuterol Sulfate Sulfate Sulfate 0.63 MG/3ML 0.63 MG/3ML 0.63 MG/3ML Ozempic Ozempic 2020- No Ozempic (0.25 or (0.25 or 08-27 (0.25 or 0.5 0.5 00:00 0.5 MG/DOSE) 2 MG/DOSE) 2 :00 MG/DOSE) 2 MG/1.5ML MG/1.5ML MG/1.5ML Ozempic Ozempic 2020- No Ozempic (0.25 or (0.25 or 08-27 (0.25 or 0.5 0.5 00:00 0.5 MG/DOSE) 2 MG/DOSE) 2 :00 MG/DOSE) 2 MG/1.5ML MG/1.5ML MG/1.5ML Ozempic Ozempic 2020- No Ozempic (0.25 or (0.25 or 08-27 (0.25 or 0.5 0.5 00:00 0.5 MG/DOSE) 2 MG/DOSE) 2 :00 MG/DOSE) 2 MG/1.5ML MG/1.5ML MG/1.5ML Ozempic Ozempic 2020- No Ozempic (0.25 or (0.25 or 08-27 (0.25 or 0.5 0.5 00:00 0.5 MG/DOSE) 2 MG/DOSE) 2 :00 MG/DOSE) 2 MG/1.5ML MG/1.5ML MG/1.5ML Immunizations Ordered Immunization Filled Immunization Date Status Commen ts Source Name Name Afluria single dose Afluria single dose 2020-01-01 Completed [facility] - 13:54:00 [facility] Afluria single dose Afluria single dose 2020-01-01 Completed [facility] - 13:54:00 [facility] Afluria single dose Afluria single dose 2020-01-01 Completed [facility] - 13:54:00 [facility] Afluria single dose Afluria single dose 2020-01-01 Completed [facility] - 13:54:00 [facility] Afluria single dose Afluria single dose 2020-01-01 Completed [facility] - 13:54:00 [facility] Afluria single dose Afluria single dose 2020-01-01 Completed [facility] - 13:54:00 [facility] Afluria single dose Afluria single dose 2020-01-01 Completed [facility] - 13:54:00 [facility] Afluria single dose Afluria single dose 2020-01-01 Completed [facility] - 13:54:00 [facility] Afluria single dose Afluria single dose 2020-01-01 Completed [facility] - 13:54:00 [facility] Afluria single dose Afluria single dose 2020-01-01 Completed [facility] - 13:54:00 [facility] Afluria single dose Afluria single dose 2020-01-01 Completed [facility] - 13:54:00 [facility] Afluria single dose Afluria single dose 2020-01-01 Completed [facility] - 13:54:00 [facility] Afluria single dose Afluria single dose 2020-01-01 Completed [facility] - 13:54:00 [facility] Afluria single dose Afluria single dose 2020-01-01 Completed [facility] - 13:54:00 [facility] Afluria single dose Afluria single dose 2020-01-01 Completed [facility] - 13:54:00 [facility] Afluria single dose Afluria single dose 2020-01-01 Completed [facility] - 13:54:00 [facility] Afluria single dose Afluria single dose 2020-01-01 Completed [facility] - 13:54:00 [facility] Afluria single dose Afluria single dose 2020-01-01 Completed [facility] - 13:54:00 [facility] Afluria single dose Afluria single dose 2020-01-01 Completed [facility] - 13:54:00 [facility] Afluria single dose Afluria single dose 2020-01-01 Completed [facility] - 13:54:00 [facility] Afluria single dose Afluria single dose 2020-01-01 Completed [facility] - 13:54:00 [facility] Afluria single dose Afluria single dose 2020-01-01 Completed [facility] - 13:54:00 [facility] Afluria single dose Afluria single dose 2020-01-01 Completed [facility] - 13:54:00 [facility] Afluria single dose Afluria single dose 2020-01-01 Completed [facility] - 13:54:00 [facility] pneumococcal 2017-11-01 [facility] 20:09:00 [place] influenza virus 2016-12-16 [facility], inactivated 16:50:00 [facility] influenza virus 2015-12-10 [facility], inactivated 14:12:00 [facility] influenza virus 2014-01-22 [facility], inactivated 14:47:00 [facility] Vital Signs Vital Name Observation Time Observation Value Comments Source Body height 2021-12-28 14:29:00 175.3 cm [facility] Body weight 2021-12-28 14:29:00 112.038 kg [facility] BMI 2021-12-28 14:29:00 36.48 kg/m2 [facility] Systolic blood 2021-12-28 14:29:00 137 mm[Hg] [facility] pressure Medicine Diastolic blood 2021-12-28 14:29:00 89 mm[Hg] [facility] Medicine Heart rate 2021-12-28 14:29:00 75 /min [facility] Body temperature 2021-12-28 14:29:00 36.22 [facility] Respiratory rate 2021-12-28 14:29:00 18 /min [facility] height 2021-12-19 10:00:00 69 [in_i] [facility] weight 2021-12-19 10:00:00 242 [lb_av] [facility] temperature 2021-12-19 10:00:00 96.6 [degF] [facility] bmi 2021-12-19 10:00:00 35.73 kg/m2 [facility] blood pressure 2021-12-19 10:00:00 136 mm[Hg] [facility] - systolic [facility] blood pressure 2021-12-19 10:00:00 84 mm[Hg] [facility] - diastolic [facility] HEIGHT 2021-12-13 08:00:00 175.3 cm WEIGHT 2021-12-13 08:00:00 109.861 kg HEIGHT 2021-11-29 15:09:00 175.3 cm WEIGHT 2021-11-29 15:09:00 113.399 kg HEIGHT 2021-12-13 08:00:00 175.3 cm WEIGHT 2021-12-13 08:00:00 109.861 kg HEIGHT 2021-11-29 15:09:00 175.3 cm WEIGHT 2021-11-29 15:09:00 113.399 kg HEIGHT 2021-12-13 08:00:00 175.3 cm WEIGHT 2021-12-13 08:00:00 109.861 kg HEIGHT 2021-11-29 15:09:00 175.3 cm WEIGHT 2021-11-29 15:09:00 113.399 kg HEIGHT 2021-11-30 11:44:00 175.3 cm WEIGHT 2021-11-30 11:44:00 115.395 kg HEIGHT 2021-11-30 11:44:00 175.3 cm WEIGHT 2021-11-30 11:44:00 115.395 kg HEIGHT 2021-11-30 11:44:00 175.3 cm WEIGHT 2021-11-30 11:44:00 115.395 kg Systolic blood 2021-11-14 15:25:00 118 mm[Hg] [facility] pressure Medicine Diastolic blood 2021-11-14 15:25:00 78 mm[Hg] [facility] Medicine Heart rate 2021-11-14 15:25:00 67 /min [facility] Body temperature 2021-11-14 15:25:00 36.11 Tere[facility] Respiratory rate 2021-11-14 15:25:00 16 /min [facility] Body height 2021-11-14 15:25:00 175.3 cm [facility] Body weight 2021-11-14 15:25:00 112.038 kg [facility] BMI 2021-11-14 15:25:00 36.48 kg/m2 [facility] Oxygen saturation in 2021-11-14 15:25:00 94 /min [facility] Arterial blood by Medicine Pulse oximetry Systolic blood 2021-08-25 15:31:00 120 mm[Hg] [facility] pressure [facility] Diastolic blood 2021-08-25 15:31:00 93 mm[Hg] [facility]ive [facility]ity of [facility] Heart rate 2021-08-25 15:31:00 76 /min [facility] Respiratory rate 2021-08-25 15:31:00 16 /min [facility] Oxygen saturation in 2021-08-25 15:31:00 97 /min [facility] blood by [place] [facility] Pulse oximetry Branch Body temperature 2021-08-25 12:50:00 36.33 [facility]re[facility] Body weight 2021-08-25 12:50:00 122.471 kg [facility] BMI 2021-08-25 12:50:00 39.87 kg/m2 [facility] Systolic blood 2021-08-22 21:26:00 113 mm[Hg] [facility] pressure [facility] Diastolic blood 2021-08-22 21:26:00 73 mm[Hg] [facility]ive [facility]ity of pressure [facility] Heart rate 2021-08-22 21:26:00 78 /min [facility] Body temperature 2021-08-22 21:26:00 36.78 Tereza [facility] Respiratory rate 2021-08-22 21:26:00 16 /min [facility] Oxygen saturation in 2021-08-22 21:26:00 95 /min [facility] blood by [place] [facility] Pulse oximetry Branch Body height 2021-08-13 11:05:00 175.3 cm [facility] Body weight 2021-08-13 11:05:00 122.471 kg [facility] BMI 2021-08-13 11:05:00 39.87 kg/m2 [facility] Systolic blood 2021-07-26 17:21:00 146 mm[Hg] Univer [facility]ity of pressure [facility] Diastolic blood 2021-07-26 17:21:00 95 mm[Hg] Unive rsity of pressure [facility] Heart rate 2021-07-26 17:21:00 71 /min [facility] Respiratory rate 2021-07-26 17:21:00 18 /min [facility] Oxygen saturation in 2021-07-26 17:21:00 93 /min [facility]ial blood by [place] [employer] Pulse oximetry Branch Body temperature 2021-07-26 14:32:00 37.17 Tereza [facility] Body height 2021-07-26 14:32:00 175.3 cm [facility] Body weight 2021-07-26 14:32:00 122.471 kg [facility] BMI 2021-07-26 14:32:00 39.87 kg/m2 [facility] Systolic blood 2021-07-14 02:00:00 158 mm[Hg] Univer [facility]ity of pressure [facility] Diastolic blood 2021-07-14 02:00:00 94 mm[Hg] Unive rsity of pressure [facility] Heart rate 2021-07-14 02:00:00 59 /min [facility] Respiratory rate 2021-07-14 02:00:00 16 /min [facility] Oxygen saturation in 2021-07-14 02:00:00 93 /min [facility] blood by [place] [facility] Pulse oximetry Branch Body temperature 2021-07-13 23:38:00 36.44 Tereza [facility] Body height 2021-07-13 23:38:00 175.3 cm [facility] Body weight 2021-07-13 23:38:00 122.471 kg [facility] BMI 2021-07-13 23:38:00 39.87 kg/m2 [facility] Systolic blood 2021-06-08 18:00:00 118 mm[Hg] Univer [facility]ity of pressure [facility] Diastolic blood 2021-06-08 18:00:00 80 mm[Hg] Unive rsity of pressure [facility] Heart rate 2021-06-08 18:00:00 73 /min [facility] Respiratory rate 2021-06-08 18:00:00 20 /min [facility] Oxygen saturation in 2021-06-08 17:00:00 95 /min [facility] Arterial blood by [facility] Pulse oximetry Branch Body temperature 2021-06-08 16:22:00 35.83 Tereza [facility] Body height 2021-06-08 16:19:00 175.3 cm [facility] Body weight 2021-06-08 16:19:00 118.389 kg [facility] BMI 2021-06-08 16:19:00 38.54 kg/m2 [facility] Systolic blood 2021-06-07 13:13:00 123 mm[Hg] Univer [facility]ity of pressure [facility] Diastolic blood 2021-06-07 13:13:00 72 mm[Hg] Unive rsity of pressure [facility] Heart rate 2021-06-07 13:13:00 79 /min [facility] Body temperature 2021-06-07 13:13:00 36.89 Tereza [facility] Respiratory rate 2021-06-07 13:13:00 18 /min [facility] Body height 2021-06-07 13:13:00 175.3 cm [facility] Body weight 2021-06-07 13:13:00 118.389 kg [facility] BMI 2021-06-07 13:13:00 38.54 kg/m2 [facility] Oxygen saturation in 2021-06-07 13:13:00 96 /min [facility] Arterial blood by [facility] Pulse oximetry Branch height 2020-03-09 14:20:00 69 [in_i] [facility] weight 2020-03-09 14:20:00 265 [lb_av] [facility] temperature 2020-03-09 14:20:00 98 [degF] [facility] bmi 2020-03-09 14:20:00 39.13 kg/m2 [facility] blood pressure 2020-03-09 14:20:00 130 mm[Hg] [facility] blood pressure 2020-03-09 14:20:00 74 mm[Hg] [facility] height 2020-02-16 14:00:00 69 [in_i] [facility] weight 2020-02-16 14:00:00 260 [lb_av] [facility] temperature 2020-02-16 14:00:00 98.4 [degF] [facility] bmi 2020-02-16 14:00:00 38.39 kg/m2 [facility] blood pressure 2020-02-16 14:00:00 135 mm[Hg] [facility] blood pressure 2020-02-16 14:00:00 84 mm[Hg] [facility] Systolic blood 2019 16:08:00 122 mm[Hg] Univer sity of [facility] Diastolic blood 2019 16:08:00 79 mm[Hg] Unive rsity of [facility] Heart rate 2019 16:08:00 59 /min [facility] Body temperature 2019 16:08:00 37.06 [facility] 2019 16:08:00 18 /min [facility] Body height 2019 16:08:00 175.3 cm [facility] Body weight 2019 16:08:00 120.203 kg [facility] BMI 2019 16:08:00 39.13 kg/m2 [facility] Oxygen saturation in 2019 16:08:00 96 /min [facility] Arterial blood by [facility] Pulse oximetry Branch Systolic blood 2019-05-22 20:44:00 115 mm[Hg] Univer sity of pressure [facility] Diastolic blood 2019-05-22 20:44:00 71 mm[Hg] Unive rsity of pressure [facility] Heart rate 2019-05-22 20:44:00 78 /min [facility] Body temperature 2019-05-22 20:44:00 36.22 Tereza [facility] Respiratory rate 2019-05-22 20:44:00 18 /min [facility] Body height 2019-05-22 20:44:00 175.3 cm [facility] Body weight 2019-05-22 20:44:00 116.847 kg [facility] BMI 2019-05-22 20:44:00 38.04 kg/m2 [facility] Oxygen saturation in 2019-05-22 20:44:00 96 /min [facility] Arterial blood by [facility] Pulse oximetry Branch Systolic blood 2019-04-08 21:46:00 123 mm[Hg] Univer sity of pressure [facility] Diastolic blood 2019-04-08 21:46:00 58 mm[Hg] Unive rsity of pressure [facility] Heart rate 2019-04-08 21:46:00 75 /min [facility] Respiratory rate 2019-04-08 21:46:00 16 /min [facility] Oxygen saturation in 2019-04-08 21:46:00 91 /min [facility] Arterial blood by [facility] Pulse oximetry Branch Body temperature 2019-04-08 19:49:00 38.39 Tereza [facility] Body weight 2019-04-08 19:00:00 127.007 kg [facility] BMI 2019-04-08 19:00:00 41.35 kg/m2 [facility] Systolic blood 2019-04-01 16:52:00 117 mm[Hg] Univer sity of pressure [facility] Diastolic blood 2019-04-01 16:52:00 71 mm[Hg] Unive rsity of pressure [facility] Heart rate 2019-04-01 16:52:00 80 /min [facility] Body temperature 2019-04-01 16:52:00 36.06 Tereza [facility] Respiratory rate 2019-04-01 16:52:00 18 /min [facility] Body height 2019-04-01 16:52:00 175.3 cm Universi ty [facility] Body weight 2019-04-01 16:52:00 127.007 kg Universi ty [facility] BMI 2019-04-01 16:52:00 41.35 [facility] 2019-04-01 16:52:00 96 /min [facility] Arterial blood by [facility] Pulse oximetry Branch Systolic blood 2018-11-12 19:52:00 125 mm[Hg] Univer sity of pressure [facility] Diastolic blood 2018-11-12 19:52:00 83 mm[facility]Hg[facility] 2018-11-12 19:52:00 80 /min Universi [facility] Body temperature 2018-11-12 19:52:00 36.61 Tereza [facility] Respiratory rate 2018-11-12 19:52:00 18 /min [facility] Oxygen saturation in 2018-11-12 19:52:00 95 /min [facility] Arterial blood by [facility] Pulse oximetry Branch Systolic blood 2021-12-14 11:10:00 122 mm[Hg] [facility] Diastolic blood 2021-12-14 11:10:00 59 mm[Hg] [facility] Heart rate 2021-12-14 11:10:00 74 /min [facility] Body temperature 2021-12-14 11:10:00 35.83 Tereza [facility] Respiratory rate 2021-12-14 11:10:00 18 /min [facility] Oxygen saturation in 2021-12-14 11:10:00 94 /min [facility] Arterial blood by Medical Ce [facility]ter Pulse oximetry Body height 2021-12-13 08:00:00 175.3 cm [facility] Body weight 2021-12-13 08:00:00 109.861 kg [facility] BMI 2021-12-13 08:00:00 35.77 kg/m2 [facility] Systolic (mm Hg) 2020-10-26 15:31:00 [facility] Diastolic (mm Hg) 2020-10-26 15:31:00 [facility] Heart Rate 2020-10-26 15:31:00 [facility] Rate 2020-10-26 15:31:00 [facility] Height 2020-10-26 15:31:00 175.26 cm [facility] BMI Calculated 2020-10-26 15:31:00 [facility] Weight 2020-10-26 15:31:00 [facility] Systolic (mm Hg) 2020-08-30 19:03:00 [facility] Diastolic (mm Hg) 2020-08-30 19:03:00 [facility] Heart Rate 2020-08-30 19:03:00 [facility] Respitory Rate 2020-08-30 19:03:00 [facility] Height 2020-08-30 19:03:00 175.26 cm [facility] Weight 2020-08-30 19:03:00 [facility] BMI Calculated 2020-08-30 19:03:00 [facility] Systolic (mm Hg) 2020-03-16 17:36:00 [facility] Diastolic (mm Hg) 2020-03-16 17:36:00 [facility] Heart Rate 2020-03-16 17:36:00 [facility] Respitory Rate 2020-03-16 17:36:00 [facility] Height 2020-03-16 17:36:00 175.26 cm [facility] BMI Calculated 2020-03-16 17:36:00 [facility] Weight 2020-03-16 17:36:00 [facility] Systolic (mm Hg) 2019-12-17 14:56:00 [facility] Diastolic (mm Hg) 2019-12-17 14:56:00 [facility] Heart Rate 2019-12-17 14:56:00 [facility] Respitory Rate 2019-12-17 14:56:00 [facility] Systolic (mm Hg) 2019-09-16 17:25:00 [facility] Diastolic (mm Hg) 2019-09-16 17:25:00 [facility] Heart Rate 2019-09-16 17:25:00 [facility] Respitory Rate 2019-09-16 17:25:00 [facility] Height 2019-09-16 17:25:00 175.26 cm [facility] BMI Calculated 2019-09-16 17:25:00 [facility] Weight 2019-09-16 17:25:00 [facility] Systolic (mm Hg) 2019-08-26 14:32:00 [facility] Diastolic (mm Hg) 2019-08-26 14:32:00 [facility] Heart Rate 2019-08-26 14:32:00 [facility] Respitory Rate 2019-08-26 14:32:00 [facility] Temperature Oral (F) 2019-08-26 14:32:00 98.8 F [facility] Height 2019-08-26 14:32:00 175.26 cm [facility] BMI Calculated 2019-08-26 14:32:00 [facility] Weight 2019-08-26 14:32:00 [facility] Heart Rate 2019-02-21 18:42:00 [facility] Respitory Rate 2019-02-21 18:42:00 [facility] Systolic (mm Hg) 2019-02-21 18:42:00 [facility] Diastolic (mm Hg) 2019-02-21 18:42:00 [facility] Height 2019-02-21 17:22:00 175.26 cm [facility] Heart Rate 2019-02-21 13:46:00 [facility] Respitory Rate 2019-02-21 13:46:00 [facility] Systolic (mm Hg) 2019-02-21 13:46:00 [facility] Diastolic (mm Hg) 2019-02-21 13:46:00 [facility] Heart Rate 2019-02-21 02:00:00 [facility] Respitory Rate 2019-02-21 02:00:00 [facility] Systolic (mm Hg) 2019-02-21 02:00:00 [facility] Diastolic (mm Hg) 2019-02-21 02:00:00 [facility] Temperature Oral (F) 2019-02-18 01:30:00 97.4 F [facility] Temperature Oral (F) 2019-02-09 19:21:00 97.8 F [facility] Height 2019-02-08 04:19:00 175.26 cm [facility] Height 2019-02-08 04:18:00 175.26 cm [facility] Weight 2019-02-08 04:18:00 [facility] BMI Calculated 2019-02-08 04:18:00 [facility] Temperature Oral (F) 2019-02-07 22:00:00 98.6 F [facility] Heart Rate 2019-02-07 22:00:00 [facility] Respitory Rate 2019-02-07 22:00:00 [facility] Systolic (mm Hg) 2019-02-07 22:00:00 [facility] Diastolic (mm Hg) 2019-02-07 22:00:00 [facility] Temperature Oral (F) 2019-02-07 18:00:00 98.4 F [facility] Heart Rate 2019-02-07 18:00:00 [facility] Respitory Rate 2019-02-07 18:00:00 [facility] Systolic (mm Hg) 2019-02-07 18:00:00 [facility] Diastolic (mm Hg) 2019-02-07 18:00:00 [facility] Temperature Oral (F) 2019-02-07 14:00:00 98.3 F [facility] Heart Rate 2019-02-07 14:00:00 [facility] Respitory Rate 2019-02-07 14:00:00 [facility] Systolic (mm Hg) 2019-02-07 14:00:00 [facility] Diastolic (mm Hg) 2019-02-07 14:00:00 [facility] Height 2019-02-06 11:00:00 175.26 cm [facility] Height 2019-02-05 11:00:00 175.26 cm [facility] Height 2019-02-04 08:57:00 175.26 cm [facility] Weight 2019-02-04 08:57:00 [facility] BMI Calculated 2019-02-04 08:57:00 [facility] BMI Calculated 2018-09-27 20:42:00 [facility] Height 2018-09-27 20:42:00 175.26 cm [facility] Weight 2018-09-27 20:42:00 [facility] Heart Rate 2018-09-27 20:42:00 [facility] Systolic (mm Hg) 2018-09-27 20:42:00 [facility] Diastolic (mm Hg) 2018-09-27 20:42:00 [facility] Respitory Rate 2018-09-24 16:36:00 [facility] Systolic (mm Hg) 2018-09-24 16:36:00 [facility] Diastolic (mm Hg) 2018-09-24 16:36:00 [facility] Systolic (mm Hg) 2018-09-24 12:44:00 [facility] Diastolic (mm Hg) 2018-09-24 12:44:00 [facility] Respitory Rate 2018-09-24 12:44:00 [facility] Systolic (mm Hg) 2018-09-24 09:00:00 [facility] Diastolic (mm Hg) 2018-09-24 09:00:00 [facility] Respitory Rate 2018-09-24 09:00:00 [facility] Weight 2018-09-24 05:36:00 [facility] Height 2018-09-24 05:36:00 175.26 cm [facility] BMI Calculated 2018-09-24 05:36:00 [facility] Temperature Oral (F) 2018-08-04 17:50:00 98.2 F [facility] Systolic (mm Hg) 2018-08-04 17:50:00 [facility] Diastolic (mm Hg) 2018-08-04 17:50:00 [facility] Respitory Rate 2018-08-04 17:50:00 [facility] Heart Rate 2018-08-04 17:50:00 [facility] Systolic (mm Hg) 2018-08-04 13:21:00 [facility] Diastolic (mm Hg) 2018-08-04 13:21:00 [facility] Heart Rate 2018-08-04 13:21:00 [facility] Respitory Rate 2018-08-04 13:21:00 [facility] Temperature Oral (F) 2018-08-04 13:21:00 97.6 F [facility] Systolic (mm Hg) 2018-08-04 08:56:00 [facility] Diastolic (mm Hg) 2018-08-04 08:56:00 [facility] Respitory Rate 2018-08-04 08:56:00 [facility] Heart Rate 2018-08-04 08:56:00 [facility] Temperature Oral (F) 2018-08-04 08:56:00 97.7 F [facility] BMI Calculated 2018-08-03 10:26:00 [facility] Weight 2018-08-03 10:26:00 [facility] Height 2018-08-03 10:26:00 175.26 cm [facility] Weight 2018-08-02 20:55:00 [facility] BMI Calculated 2018-08-02 20:55:00 [facility] Height 2018-08-02 20:55:00 172.72 cm [facility] BMI Calculated 2018-01-25 18:50:00 [facility] Weight 2018-01-25 18:50:00 [facility] Height 2018-01-25 18:50:00 175.26 cm [facility] Heart Rate 2018-01-25 18:50:00 [facility] Temperature Oral (F) 2018-01-25 18:50:00 98.1 F [facility] Systolic (mm Hg) 2018-01-25 18:50:00 [facility] Diastolic (mm Hg) 2018-01-25 18:50:00 [facility] Systolic (mm Hg) 2017-11-01 17:17:00 [facility] Diastolic (mm Hg) 2017-11-01 17:17:00 [facility] Temperature Oral (F) 2017-11-01 17:17:00 98.1 F [facility] Heart Rate 2017-11-01 17:17:00 [facility] Respitory Rate 2017-11-01 17:17:00 [facility] Systolic (mm Hg) 2017-11-01 13:43:00 [facility] Diastolic (mm Hg) 2017-11-01 13:43:00 [facility] Heart Rate 2017-11-01 13:43:00 [facility] Temperature Oral (F) 2017-11-01 13:43:00 97.2 F [facility] Respitory Rate 2017-11-01 13:43:00 [facility] Diastolic (mm Hg) 2017-11-01 08:23:00 [facility] Systolic (mm Hg) 2017-11-01 08:23:00 [facility] Temperature Oral (F) 2017-11-01 08:23:00 98.1 F [facility] Heart Rate 2017-11-01 08:23:00 [facility] Respitory Rate 2017-11-01 08:23:00 [facility] BMI Calculated 2017-11-01 06:38:00 [facility] Weight 2017-11-01 06:38:00 [facility] Height 2017-11-01 06:38:00 175.26 cm [facility] Weight 2017-11-01 00:25:00 [facility] Temperature Oral (F) 2017-06-29 01:08:00 98.0 F [facility] Temperature Oral (F) 2017-06-28 20:19:00 96.7 F [facility] Systolic (mm Hg) 2017-06-28 20:00:00 [facility] Diastolic (mm Hg) 2017-06-28 20:00:00 [facility] Respitory Rate 2017-06-28 20:00:00 [facility] Temperature Oral (F) 2017-06-28 16:48:00 97.9 F [facility] Respitory Rate 2017-06-28 15:00:00 [facility] Systolic (mm Hg) 2017-06-28 15:00:00 [facility] Diastolic (mm Hg) 2017-06-28 15:00:00 [facility] Weight 2017-06-28 14:00:00 [facility] Systolic (mm Hg) 2017-06-28 13:00:00 [facility] Diastolic (mm Hg) 2017-06-28 13:00:00 [facility] Respitory Rate 2017-06-28 13:00:00 [facility] Weight 2017-06-27 14:00:00 [facility] Height 2017-06-23 23:38:00 175.26 cm [facility] Weight 2017-06-23 23:38:00 [facility] BMI Calculated 2017-06-23 23:38:00 [facility] Systolic (mm Hg) 2016-12-17 00:10:00 [facility] Diastolic (mm Hg) 2016-12-17 00:10:00 [facility] Temperature Oral (F) 2016-12-17 00:10:00 98.2 F [facility] Heart Rate 2016-12-17 00:10:00 [facility] Respitory Rate 2016-12-17 00:10:00 [facility] Temperature Oral (F) 2016-12-16 20:29:00 97 F [facility] Heart Rate 2016-12-16 20:29:00 [facility] Respitory Rate 2016-12-16 20:29:00 [facility] Systolic (mm Hg) 2016-12-16 20:29:00 [facility] Diastolic (mm Hg) 2016-12-16 20:29:00 [facility] Systolic (mm Hg) 2016-12-16 16:36:00 [facility] Diastolic (mm Hg) 2016-12-16 16:36:00 [facility] Temperature Oral (F) 2016-12-16 16:36:00 97 F [facility] Heart Rate 2016-12-16 16:36:00 [facility] Respitory Rate 2016-12-16 16:36:00 [facility] Height 2016-12-16 11:17:00 175.26 cm [facility] BMI Calculated 2016-12-16 11:17:00 [facility] Weight 2016-12-16 11:17:00 [facility] Weight 2016-12-16 01:22:00 [facility] Height 2016-12-16 01:22:00 175.26 cm [facility] BMI Calculated 2016-12-16 01:22:00 [facility] Respitory Rate 2016-07-11 13:30:00 [facility] Diastolic (mm Hg) 2016-07-11 12:15:00 [facility] Systolic (mm Hg) 2016-07-11 12:15:00 [facility] Respitory Rate 2016-07-11 12:15:00 [facility] Heart Rate 2016-07-11 12:15:00 [facility] Diastolic (mm Hg) 2016-07-11 01:12:00 [facility] Systolic (mm Hg) 2016-07-11 01:12:00 [facility] Heart Rate 2016-07-11 01:12:00 [facility] Respitory Rate 2016-07-11 01:12:00 [facility] Heart Rate 2016-07-10 18:30:00 [facility] Systolic (mm Hg) 2016-07-10 18:30:00 [facility] Diastolic (mm Hg) 2016-07-10 18:30:00 [facility] Weight 2016-07-08 00:17:00 [facility] Temperature Oral (F) 2016-07-04 19:25:00 98.3 F [facility] Temperature Oral (F) 2016-07-04 12:30:00 97.6 F [facility] Weight 2016-06-30 22:53:00 [facility] Height 2016-06-30 21:59:00 175.26 cm [facility] Temperature Oral (F) 2016-06-29 12:15:00 97 F [facility] Height 2016-06-26 21:48:00 175.26 cm [facility] Weight 2016-06-23 14:55:00 [facility] Height 2016 21:45:00 175.26 cm [facility] BMI Calculated 2016 21:45:00 [facility] Systolic (mm Hg) 2016-05-02 15:03:00 [facility] Diastolic (mm Hg) 2016-05-02 15:03:00 [facility] Heart Rate 2016-05-02 15:03:00 [facility] Respitory Rate 2016-05-02 15:03:00 [facility] Temperature Oral (F) 2016-04-25 23:42:00 98.4 F [facility] Systolic (mm Hg) 2016-04-25 23:42:00 [facility] Diastolic (mm Hg) 2016-04-25 23:42:00 [facility] Respitory Rate 2016-04-25 23:42:00 [facility] Heart Rate 2016-04-25 23:42:00 [facility] Systolic (mm Hg) 2016-04-25 22:20:00 [facility] Diastolic (mm Hg) 2016-04-25 22:20:00 [facility] Heart Rate 2016-04-25 22:20:00 [facility] Respitory Rate 2016-04-25 22:20:00 [facility] BMI Calculated 2016-04-25 20:20:00 [facility] Weight 2016-04-25 20:20:00 [facility] Height 2016-04-25 20:20:00 175.26 cm [facility] Temperature Oral (F) 2016-04-25 20:20:00 98.3 F [facility] Heart Rate 2016-04-25 20:20:00 [facility] Respitory Rate 2016-04-25 20:20:00 [facility] Systolic (mm Hg) 2016-04-25 20:20:00 [facility] Diastolic (mm Hg) 2016-04-25 20:20:00 [facility] Respitory Rate 2016-04-09 00:31:00 [facility] Heart Rate 2016-04-09 00:31:00 [facility] Temperature Oral (F) 2016-04-09 00:31:00 98.2 F [facility] Systolic (mm Hg) 2016-04-09 00:31:00 [facility] Diastolic (mm Hg) 2016-04-09 00:31:00 [facility] Weight 2016-04-08 20:43:00 [facility] BMI Calculated 2016-04-08 20:43:00 [facility] Height 2016-04-08 20:43:00 175.26 cm [facility] Systolic (mm Hg) 2016-04-08 20:43:00 [facility] Diastolic (mm Hg) 2016-04-08 20:43:00 [facility] Temperature Oral (F) 2016-04-08 20:43:00 98.0 F [facility] Respitory Rate 2016-04-08 20:43:00 [facility] Heart Rate 2016-04-08 20:43:00 [facility] Respitory Rate 2016-04-01 04:13:00 [facility] Systolic (mm Hg) 2016-04-01 04:13:00 [facility] Diastolic (mm Hg) 2016-04-01 04:13:00 [facility] Temperature Oral (F) 2016-04-01 04:13:00 98.1 F [facility] Respitory Rate 2016-04-01 01:34:00 [facility] Systolic (mm Hg) 2016-04-01 01:34:00 [facility] Diastolic (mm Hg) 2016-04-01 01:34:00 [facility] Systolic (mm Hg) 2016-04-01 01:24:00 [facility] Diastolic (mm Hg) 2016-04-01 01:24:00 [facility] Respitory Rate 2016-04-01 01:10:00 [facility] Heart Rate 2016-04-01 00:44:00 [facility] Weight 2016-03-31 21:13:00 [facility] BMI Calculated 2016-03-31 21:13:00 [facility] Height 2016-03-31 21:13:00 175.26 cm [facility] Temperature Oral (F) 2016-03-31 21:13:00 97.7 F [facility] Heart Rate 2016-03-31 21:13:00 [facility] Diastolic (mm Hg) 2015-12-30 18:30:00 [facility] Heart Rate 2015-12-30 18:30:00 [facility] Systolic (mm Hg) 2015-12-30 18:30:00 [facility] Respitory Rate 2015-12-30 18:30:00 [facility] Heart Rate 2015-12-30 12:30:00 [facility] Diastolic (mm Hg) 2015-12-30 12:30:00 [facility] Respitory Rate 2015-12-30 12:30:00 [facility] Systolic (mm Hg) 2015-12-30 12:30:00 [facility] Heart Rate 2015-12-30 01:00:00 [facility] Systolic (mm Hg) 2015-12-30 01:00:00 [facility] Respitory Rate 2015-12-30 01:00:00 [facility] Diastolic (mm Hg) 2015-12-30 01:00:00 [facility] Temperature Oral (F) 2015-12-23 13:00:00 97.9 F [facility] Temperature Oral (F) 2015-12-21 13:15:00 98 F [facility] Temperature Oral (F) 2015-12-16 18:04:00 98.3 F [facility] Heart Rate 2015-12-10 16:35:00 [facility] Temperature Oral (F) 2015-12-10 16:35:00 98.3 F [facility] Respitory Rate 2015-12-10 16:35:00 [facility] Systolic (mm Hg) 2015-12-10 16:35:00 [facility] Diastolic (mm Hg) 2015-12-10 16:35:00 [facility] Systolic (mm Hg) 2015-12-10 13:05:00 [facility] Diastolic (mm Hg) 2015-12-10 13:05:00 [facility] Temperature Oral (F) 2015-12-10 13:05:00 97.9 F [facility] Heart Rate 2015-12-10 13:05:00 [facility] Respitory Rate 2015-12-10 13:05:00 [facility] Systolic (mm Hg) 2015-12-10 08:12:00 [facility] Diastolic (mm Hg) 2015-12-10 08:12:00 [facility] Respitory Rate 2015-12-10 08:12:00 [facility] Heart Rate 2015-12-10 08:12:00 [facility] Temperature Oral (F) 2015-12-10 08:12:00 98.2 F [facility] BMI Calculated 2015-12-09 21:46:00 [facility] Weight 2015-12-09 21:46:00 [facility] Height 2015-12-09 21:46:00 175.26 cm [facility] Height 2015-12-09 12:50:00 175.26 cm [facility] Weight 2015-12-09 12:50:00 [facility] BMI Calculated 2015-12-09 12:50:00 [facility] BMI Calculated 2015-12-08 15:40:00 [facility] Weight 2015-12-08 15:40:00 [facility] Height 2015-12-08 15:40:00 175.2 cm [facility] Height 2015-11-24 13:01:00 175.26 cm [facility] Height 2015-11-10 02:14:00 175.26 cm [facility] Weight 2015-11-10 02:14:00 [facility] BMI Calculated 2015-11-10 02:14:00 [facility] Systolic (mm Hg) 2015-08-20 18:46:00 [facility] Diastolic (mm Hg) 2015-08-20 18:46:00 [facility] Respitory Rate 2015-08-20 18:46:00 [facility] Systolic (mm Hg) 2015-08-20 17:45:00 [facility] Diastolic (mm Hg) 2015-08-20 17:45:00 [facility] Respitory Rate 2015-08-20 17:45:00 [facility] Respitory Rate 2015-08-20 17:30:00 [facility] Systolic (mm Hg) 2015-08-20 17:30:00 [facility] Diastolic (mm Hg) 2015-08-20 17:30:00 [facility] Weight 2015-08-20 12:06:00 [facility] BMI Calculated 2015-08-20 12:06:00 [facility] Height 2015-08-20 12:06:00 175.26 cm [facility] Heart Rate 2015-08-20 12:06:00 [facility] Height 2015-08-20 12:00:00 175.26 cm [facility] BMI Calculated 2015-08-20 12:00:00 [facility] Weight 2015-08-20 12:00:00 [facility] Systolic (mm Hg) 2015-08-06 18:00:00 [facility] Diastolic (mm Hg) 2015-08-06 18:00:00 [facility] Respitory Rate 2015-08-06 18:00:00 [facility] Heart Rate 2015-08-06 18:00:00 [facility] Systolic (mm Hg) 2015-08-06 17:45:00 [facility] Diastolic (mm Hg) 2015-08-06 17:45:00 [facility] Respitory Rate 2015-08-06 17:45:00 [facility] Heart Rate 2015-08-06 17:45:00 [facility] Systolic (mm Hg) 2015-08-06 17:30:00 [facility] Diastolic (mm Hg) 2015-08-06 17:30:00 [facility] Respitory Rate 2015-08-06 17:30:00 [facility] Heart Rate 2015-08-06 17:30:00 [facility] BMI Calculated 2015-08-06 13:00:00 [facility] Height 2015-08-06 13:00:00 175.26 cm [facility] Weight 2015-08-06 13:00:00 [facility] Systolic (mm Hg) 2015-08-02 16:45:00 [facility] Diastolic (mm Hg) 2015-08-02 16:45:00 [facility] Respitory Rate 2015-08-02 16:45:00 [facility] Systolic (mm Hg) 2015-08-02 16:30:00 [facility] Diastolic (mm Hg) 2015-08-02 16:30:00 [facility] Respitory Rate 2015-08-02 16:30:00 [facility] Respitory Rate 2015-08-02 16:15:00 [facility] Systolic (mm Hg) 2015-08-02 16:15:00 [facility] Diastolic (mm Hg) 2015-08-02 16:15:00 [facility] BMI Calculated 2015-08-02 13:23:00 [facility] Weight 2015-08-02 13:23:00 [facility] Height 2015-08-02 13:23:00 172.72 cm [facility] BMI Calculated 2015-08-02 12:20:00 [facility] Weight 2015-08-02 12:20:00 [facility] Height 2015-08-02 12:20:00 175.26 cm [facility] Respitory Rate 2015-06-29 21:53:00 [facility] Heart Rate 2015-06-29 21:53:00 [facility] Systolic (mm Hg) 2015-06-29 21:53:00 [facility] Diastolic (mm Hg) 2015-06-29 21:53:00 [facility] Diastolic (mm Hg) 2015-06-29 12:30:00 [facility] Respitory Rate 2015-06-29 12:30:00 [facility] Systolic (mm Hg) 2015-06-29 12:30:00 [facility] Heart Rate 2015-06-29 12:30:00 [facility] Diastolic (mm Hg) 2015-06-29 05:08:00 [facility] Systolic (mm Hg) 2015-06-29 05:08:00 [facility] Respitory Rate 2015-06-29 05:08:00 [facility] Heart Rate 2015-06-29 05:08:00 [facility] Temperature Oral (F) 2015-06-29 05:08:00 97.1 F [facility] Temperature Oral (F) 2015-06-28 21:00:00 98.3 F [facility] Weight 2015-06-27 00:04:00 [facility] Temperature Oral (F) 2015-06-26 05:00:00 97.6 F [facility] BMI Calculated 2015-06-09 16:51:00 [facility] Height 2015-06-09 16:51:00 175.26 cm [facility] Weight 2015-06-09 16:51:00 [facility] Systolic (mm Hg) 2015-05-24 14:52:00 [facility] Diastolic (mm Hg) 2015-05-24 14:52:00 [facility] BMI Calculated 2015-05-24 14:52:00 [facility] Weight 2015-05-24 14:52:00 [facility] Height 2015-05-24 14:52:00 175.26 cm [facility] Heart Rate 2015-05-24 14:52:00 [facility] Respitory Rate 2015-05-24 14:52:00 [facility] Height 2015-05-11 21:20:00 175.26 cm [facility] Weight 2015-05-11 21:20:00 [facility] BMI Calculated 2015-05-11 21:20:00 [facility] Respitory Rate 2015-05-11 21:20:00 [facility] Heart Rate 2015-05-11 21:20:00 [facility] Systolic (mm Hg) 2015-05-11 21:20:00 [facility] Diastolic (mm Hg) 2015-05-11 21:20:00 [facility] Height 2015-04-28 19:01:00 175.26 cm [facility] BMI Calculated 2015-04-28 19:01:00 [facility] Weight 2015-04-28 19:01:00 [facility] Temperature Oral (F) 2015-04-28 19:01:00 98.2 F [facility] Respitory Rate 2015-04-28 19:01:00 [facility] [place] Heart Rate 2015-04-28 19:01:00 [facility] Systolic (mm Hg) 2015-04-28 19:01:00 [facility] Diastolic (mm Hg) 2015-04-28 19:01:00 [facility] Heart Rate 2015-04-27 18:45:00 [facility] Respitory Rate 2015-04-27 18:45:00 [facility] Systolic (mm Hg) 2015-04-27 18:45:00 [facility] Diastolic (mm Hg) 2015-04-27 18:45:00 [facility] Heart Rate 2015-04-27 17:45:00 [facility] Respitory Rate 2015-04-27 17:45:00 [facility] Systolic (mm Hg) 2015-04-27 17:45:00 [facility] Diastolic (mm Hg) 2015-04-27 17:45:00 [facility] Heart Rate 2015-04-27 17:15:00 [facility] Respitory Rate 2015-04-27 17:15:00 [facility] Systolic (mm Hg) 2015-04-27 17:15:00 [facility] Diastolic (mm Hg) 2015-04-27 17:15:00 [facility] Weight 2015-04-27 13:57:00 [facility] Height 2015-04-27 13:57:00 175.26 cm [facility] BMI Calculated 2015-04-27 13:57:00 [facility] Weight 2015-04-22 16:48:00 [facility] BMI Calculated 2015-04-22 16:48:00 [facility] Height 2015-04-22 16:48:00 175.26 cm [facility] Respitory Rate 2014-09-17 12:26:00 [facility] Systolic (mm Hg) 2014-09-17 12:26:00 [facility] Diastolic (mm Hg) 2014-09-17 12:26:00 [facility] Temperature Oral (F) 2014-09-17 12:26:00 98.3 F [facility] Heart Rate 2014-09-17 12:26:00 [facility] Respitory Rate 2014-09-17 10:19:00 [facility] Systolic (mm Hg) 2014-09-17 10:19:00 [facility] Diastolic (mm Hg) 2014-09-17 10:19:00 [facility] Temperature Oral (F) 2014-09-17 10:19:00 97.9 F [facility] Heart Rate 2014-09-17 10:19:00 [facility] BMI Calculated 2014-09-17 10:19:00 [facility] Height 2014-09-17 10:19:00 175.26 cm [facility] Weight 2014-09-17 10:19:00 [facility] Systolic (mm Hg) 2014-04-05 13:15:00 [facility] Diastolic (mm Hg) 2014-04-05 13:15:00 [facility] Respitory Rate 2014-04-05 13:15:00 [facility] Temperature Oral (F) 2014-04-05 12:09:00 97.8 F [facility] Respitory Rate 2014-04-05 12:09:00 [facility] Heart Rate 2014-04-05 12:09:00 [facility] Systolic (mm Hg) 2014-04-05 12:09:00 [facility] Diastolic (mm Hg) 2014-04-05 12:09:00 [facility] Weight 2014-04-05 12:09:00 [facility] BMI Calculated 2014-04-05 12:09:00 [facility] Height 2014-04-05 12:09:00 175.26 cm [facility] Diastolic (mm Hg) 2014-01-28 21:52:00 [facility] Respitory Rate 2014-01-28 21:52:00 [facility] Systolic (mm Hg) 2014-01-28 21:52:00 [facility] Systolic (mm Hg) 2014-01-28 20:00:00 [facility] Diastolic (mm Hg) 2014-01-28 20:00:00 [facility] Respitory Rate 2014-01-28 20:00:00 [facility] Respitory Rate 2014-01-28 18:00:00 [facility] Diastolic (mm Hg) 2014-01-28 18:00:00 [facility] Systolic (mm Hg) 2014-01-28 18:00:00 [facility] Temperature Oral (F) 2014-01-28 18:00:00 98.1 F [facility] Temperature Oral (F) 2014-01-28 14:00:00 99.1 F [facility] Temperature Oral (F) 2014-01-28 03:05:00 99.4 F [facility] Heart Rate 2014-01-26 18:35:00 [facility] Heart Rate 2014-01-26 14:27:00 [facility] Heart Rate 2014-01-26 09:37:00 [facility] BMI Calculated 2014-01-21 08:15:00 [facility] Weight 2014-01-21 08:15:00 [facility] Height 2014-01-21 08:15:00 175.2 cm [facility] Weight 2014-01-20 23:50:00 [facility] Height 2014-01-20 23:50:00 175.26 cm [facility] BMI Calculated 2014-01-20 23:50:00 [facility] Systolic (mm Hg) 2013-11-03 22:00:00 [facility] Diastolic (mm Hg) 2013-11-03 22:00:00 [facility] Systolic (mm Hg) 2013-11-03 21:00:00 [facility] Diastolic (mm Hg) 2013-11-03 21:00:00 [facility] Systolic (mm Hg) 2013-11-03 20:00:00 [facility] Diastolic (mm Hg) 2013-11-03 20:00:00 [facility] Respitory Rate 2013-11-03 16:00:00 [facility] Respitory Rate 2013-11-03 15:00:00 [facility] Respitory Rate 2013-11-03 14:00:00 [facility] Heart Rate 2013-10-08 15:30:00 [facility] Heart Rate 2013-10-08 15:20:00 [facility] Heart Rate 2013-10-08 15:10:00 [facility] Weight 2013-10-06 11:04:00 [facility] Weight 2013-09-30 10:02:00 [facility] Weight 2013-09-30 03:40:00 [facility] Height 2013-09-30 03:40:00 177.8 cm [facility] BMI Calculated 2013-09-30 03:40:00 [facility] Procedures Procedure Date / Time Performing Source Performed Clinician POCT-GLUCOSE METER 2021-12-[address] [facility] 11:09:00 [facility] POCT-GLUCOSE METER 2021-12-[address] [facility] 06:14:00 [facility] BASIC METABOLIC PANEL 2021-12-[address] [facility] 04:25:00 [facility] CBC (HEMOGRAM ONLY) 2021-12-[address] [facility] 04:25:00 [facility] XR CHEST 1 VIEW PORTABLE / 2021-12-[address] [facility] [facility] BEDSIDE 17:32:[address] [facility] [address] CHEST FOR PULMONARY 2021-12-[address] [facility] EMBOLUS 16:51:00 [facility] BASIC METABOLIC PANEL 2021-12-[address] [facility] 16:12:00 [facility] BLOOD GAS, ARTERIAL 2021-12-[address] [facility] 15:34:00 [facility] POCT-GLUCOSE METER 2021-12-[facility] 13:25:00 [facility] TISSUE EXAM 2021-12-[address] [facility] 11:35:00 [facility] REPLACEMENT, INTRATHECAL PUMP 2021-12-13 [facility] 10:50:00 [facility] POCT-GLUCOSE METER 2021-12-[address] [facility] 09:01:00 [facility] ECG 12-LEAD 2021-11-30 Unknown, [facility] Doctor [facility] 11:48:58 [facility] ECG 12-LEAD 2021-11-30 [facility] 11:48:58 [facility] ECG 12-LEAD 2021-11-30 Unknown, [facility] 11:48:58 [facility] URINE CULTURE 2021-11-[address] [facility] 11:43:00 [facility] URINALYSIS W/ REFLEX URINE 2021-11-[address] [facility] 11:43:00 [facility] TYPE AND SCREEN, AUTOMATED 2021-11-30 Catherine, Jeannette [facility] 11:43:00 [facility] PT/APTT 2021-11-[address] [facility] 11:42:00 [facility] CBC W/PLT COUNT & AUTO 2021-11-30 Jeannette Alexander [facility] DIFFERENTIAL 11:42:00 [facility] BASIC METABOLIC PANEL 2021-11-[address] [facility] 11:42:00 [facility] CBC W/PLT COUNT & AUTO 2021-11-30 Jeannette Alexander [facility] DIFFERENTIAL 11:42:00 [facility] XR CHEST 2 VIEWS 2021-11-[address] [facility] 11:40:00 [facility] XR ABDOMEN ACUTE SERIES 2021-08-25 Yazan Knight [facility] 13:45:03 [facility] [address] HEAD WO CONTRAST 2021-08-25 Eugene Yazan [facility] 13:33:45 [facility] LIPASE 2021-08-25 Eugene [facility] xa 13:29:00 [facility] COMP. METABOLIC PANEL (60655) 2021-08-25 Yazan [facility] 13:29:00 [facility] CBC WITH DIFF 2021-08-25 Eugene [facility] 13:29:00 [facility] URINALYSIS 2021-08-25 Eugene [facility] 13:29:00 [facility] AC PANEL 21 + LACTIC ACID 2021-08-25 Yazan Knight [facility] 13:29:00 [facility] POCT GLUCOSE (AUTOMATED) 2021-08-22 Castro [facility] 18:05:00 [facility] POCT GLUCOSE (AUTOMATED) 2021-08-22 Matthew [facility] 13:41:00 [facility] POCT GLUCOSE (AUTOMATED) 2021-08-22 Matthew [facility] 01:12:00 [facility] POCT GLUCOSE (AUTOMATED) 2021-08-21 Matthew [facility] 22:39:00 [facility] POCT GLUCOSE (AUTOMATED) 2021-08-21 Matthew [facility] 18:08:00 [facility] POCT GLUCOSE (AUTOMATED) 2021[facility]08[facility]21 [facility] BASIC METABOLIC PANEL (NA, K, 2021-08-21 Jan[facility] CL, CO2, GLUCOSE, BUN, 09:38:00 Medical B ran CREATININE, CA) CBC WITH DIFF 2021-08-21 Janelle Rubio [facility] xa 09:38:00 [facility] N-TERMINAL PRO-BNP 2021-08-21 [facility] 09:38:00 [facility] POCT GLUCOSE (AUTOMATED) 2021-08-21 [facility] 01:56:00 [facility] XR CHEST 1 VW 2021-08-20 [facility] 23:43:07 [facility] POCT GLUCOSE (AUTOMATED) 2021-08-20 [facility] 22:08:00 [facility] POCT GLUCOSE (AUTOMATED) 2021-08-20 [facility] 19:02:00 [facility] POCT GLUCOSE (AUTOMATED) 2021-08-20 [facility] 13:37:00 [facility] POCT GLUCOSE (AUTOMATED) 2021-08-20 [facility] 01:42:00 [facility] POCT GLUCOSE (AUTOMATED) 2021-08-19 [facility] 21:55:00 [facility] POCT GLUCOSE (AUTOMATED) 2021-08-19 [facility] 17:30:00 [facility] POCT GLUCOSE (AUTOMATED) 2021-08-19 [facility] 14:21:00 [facility] BASIC METABOLIC PANEL (NA, K, 2021-08-19 Saritha Larson [facility] CL, CO2, GLUCOSE, BUN, 09:33:00 Medical B ran CREATININE, CA) CBC WITH DIFF 2021-08-19 Saritha Larson [facility] 09:33:00 [facility] POCT GLUCOSE (AUTOMATED) 2021[facility]08[facility] 03:[facility] SPUTUM CULTURE 2021-08-19 [facility] 02:47:00 [facility] POCT GLUCOSE (AUTOMATED) 2021-08-19 Matthew [facility] 01:04:00 [facility] POCT GLUCOSE (AUTOMATED) 2021-08-18 Matthew [facility] 22:22:00 [facility] COVID-19 (MOLECULAR TESTING 2021-08-[facility] 16:20:00 [facility] LAB ONLY COVID INTERPRETATION 2021-08-18 [facility] 16:20:00 [facility] POCT GLUCOSE (AUTOMATED) 2021-08-18 Matthew [facility] 13:35:[address] ANGIOGRAM CHEST 2021-08-18 [facility] 05:44:51 [facility] POCT GLUCOSE (AUTOMATED) 2021-08-17 Matthew [facility] 22:14:00 [facility] POCT GLUCOSE (AUTOMATED) 2021-08-17 Matthew [facility] 16:33:00 [facility] POCT GLUCOSE (AUTOMATED) 2021-08-17 [facility] 12:18[facility] BASIC METABOLIC PANEL (NA, K, 2021-08-17 Prema Rooney [facility] CL, CO2, GLUCOSE, BUN, 10:15:00 [facility] CREATININE, CA) CBC WITH DIFF 2021-08-17 Prema Rooney [facility] 10:15:00 [facility] POCT GLUCOSE (AUTOMATED) 2021-08-17 Matthew [facility] 02:11:00 [facility] POCT GLUCOSE (AUTOMATED) 2021-08-16 [facility] 21:42:00 [facility] LEGIONELLA URINARY ANTIGEN 2021-08-16 Noy Choi [facility] 20:10:00 [facility] MRSA / MSSA SCREEN BY PCR, 2021-08-[facility] 20:10:00 [facility] URINALYSIS 2021-08-16 JimboExcela [facility] xa 20:07:00 [facility] RESPIRATORY PANEL BY PCR 2021-08-16 Jimbo [facility] 20:07:00 [facility] POCT GLUCOSE (AUTOMATED) 2021-08-16 Matthew [facility] 16:51:00 [facility] POCT GLUCOSE (AUTOMATED) 2021-08-16 Matthew [facility] 12:38:00 [facility] POCT GLUCOSE (AUTOMATED) 2021-08-16 Matthew [facility] 01:25:00 [facility] POCT GLUCOSE (AUTOMATED) 2021-08-15 Matthew [facility] 21:57:00 [facility] POCT GLUCOSE (AUTOMATED) 2021-08-15 Matthew [facility] 16:31:00 [facility] POCT GLUCOSE (AUTOMATED) 2021-08-15 Matthew [facility] 12:36:00 [facility] MAGNESIUM 2021-08-15 [facility] 10:36:00 [facility] BASIC METABOLIC PANEL (NA, K, 2021-08-15 [facility], CO2, GLUCOSE, BUN, 10:36:00 [facility] CREATININE, CA) CBC WITHOUT DIFF 2021-08-15 Eugenia [facility] 10:36:00 [facility] PROCALCITONIN 2021-08-15 Toribio [facility] 10:36:00 [facility] POCT GLUCOSE (AUTOMATED) 2021-08-15 Matthew [facility] 02:12:00 [facility] SPUTUM CULTURE 2021-08-14 [facility] 22:32:00 [facility] POCT GLUCOSE (AUTOMATED) 2021-08-14 Deepika Castro [facility] 21:27:00 [facility] AC PANEL 20 + LACTIC ACID 2021-08-14 Amber Benitez [facility] 20:22:00 [facility] CBC WITH DIFF 2021-08-14 Shanti Gresham [facility] 09:48:00 [facility] POCT GLUCOSE (AUTOMATED) 2021-08-14 CastroDeepika mason [facility] 05:19:00 [facility] POCT GLUCOSE (AUTOMATED) 2021-08-14 Deepika Castro [facility] 02:32:00 [facility] POCT GLUCOSE (AUTOMATED) 2021-08-13 [facility] 20:23:00 [facility] POCT GLUCOSE (AUTOMATED) 2021-08-13 CastroDeepika mason [facility] 16:36:00 [facility] XR CHEST 1 VW 2021-08-13 Ebenezer Cabrera [facility] 11:31:30 [facility] EKG-12 LEAD 2021-08-13 Doctor Unassigned, [facility] 11:23:05 [employer] BLOOD CULTURE SCREEN 2021-08-13 Ebenezer Cabrera [facility] 11:20:00 [facility] COMP. METABOLIC PANEL (97200) 2021-08-13 Ebenezer Cabrera [facility] 11:20:00 [facility] CBC WITH DIFF 2021-08-13 Ebenezer Cabrera [facility] 11:20:00 [facility] GLYCOSYLATED HEMOGLOBIN (A1C) 2021-08-13 Tram[facility]ello [facility] 11:20:00 [facility] RAPID INFLUENZA A/B 2021-08-13 Ebenezer Cabrera [facility] 11:20:00 [facility] COVID-19 (ID NOW RAPID 2021-08-13 Ebenezer Cabrera [facility] TESTING) 11:20:00 [facility] LAB ONLY COVID INTERPRETATION 2021-08-13 Ebenezer Cabrera [facility] 11:20:00 [facility] EMERGENCY DEPARTMENT 2021-08-13 Doctor Unassigned, [facility] DOCUMENTS 05:01:00 [facility] ADMISSION 2021-08-13 Doctor Unassigned, [facility] 05:01:00 [employer] [facility] CT CERVICAL SPINE WO CONTRAST 2021-07-26 Barnes, [facility] 17:16:[address] HEAD WO CONTRAST 2021-07[facility] XR CHEST 1 VW 2021-07-26 [facility] 16:42:27 [facility] XR FOREARM 2 VW LEFT 2021-07-26 [facility] 16:42:27 [facility] XR PELVIS <3 VW 2021-07-26 [facility] 16:42[facility]27 [facility] XR SHOULDER <2 VW LEFT 2021-07-26 [facility] 16:42:27 [facility] XR PELVIS <3 VW 2021-07-14 [facility] xa 01:07:42 [facility] XR SHOULDER 2+ VW RIGHT 2021-07-14 [facility] 01:07:42 [facility] URINALYSIS 2021-06-08 Eugene [facility] xa 18:31:00 [facility] URINE DRUG (IMMUNOASSAY) - 2021-06-08 Yazan Knight [facility] COMPREHENSIVE DRUG SCREEN W/O 18:31:00 [facility] [address] REFLEX CT HEAD WO CONTRAST 2021-06-08 Yazan Knight [facility] 17:06:54 [facility] XR CHEST 1 VW 2021-06-08 Eugene [facility] xa 17:03:00 [facility] AC PANEL 20 + LACTIC ACID 2021-06-08 Yazan Knight [facility] 16:33:00 [facility] COVID-19 (ID NOW RAPID 2021-06-08 Eugene [facility] TESTING) 16:33:00 [facility] TROPONIN I 2021-06-08 Eugene [facility] xa 16:24:00 [facility] COMP. METABOLIC PANEL (33696) 2021-06-08 Y[facility] 16:24:00 [facility] ETHANOL 2021-06-08 [facility]:24[facility] PROTHROMBIN TIME / IN[facility]06[facility] 16:24[facility] ACTIVATED PARTIAL THRMPLAS 2021-06-08 Yazan Knight [facility] 16:24:00 [facility] N-TERMINAL PRO-BNP 2021-06-08 Eugene [facility] 16:24:00 Medical Branch CBC WITH DIFF 2021-06-08 Eugene [facility] [place] 16:23:[address] HEAD WO CONTRAST 2021-06-07 Eugene Yazan [place] 15:37:56 Medical Branch XR KNEE 3 VW LEFT 2021-06-07 Eugene [facility] 15:19:28 Medical Branch XR HIPS 2 VW LEFT 2021-06-07 Eugene [facility] 15:04:08 Medical Branch XR KUB 2021-06-07 Eugene [facility] [place] 15:00:21 Medical Branch XR RIBS 4+ VW LEFT 2021-06-07 Eugene [facility] 14:54:58 Medical Branch XR CHEST 1 VW 2021-06-07 Eugene [facility] [place] 14:40:39 Medical Branch Chemodenervation of one 2020-03-16 [facility] extremity; 5 or more muscles 20:19:00 Chemodenervation of one 2019-12-17 [facility] extremity; each additional 18:01:00 extremity, 1-4 muscle(s) (List separately in addition to code for primary procedure) DME/SUPPLY JUSTIFICATION 2019-09-08 Doctor Unassigned, [facility] 05:01:00 [facility] [place] Electronic analysis of 2019-08-26 [facility] programmable, implanted pump 15:42:00 for intrathecal or epidural drug infusion (includes evaluation of reservoir status, alarm status, drug prescription status); with reprogramming and refill (requiring skill of a physician or other qualifi EXTERNAL PROVIDER - ADC 2019-07-03 Doctor [facility], [facility] REFERRAL 05:01:00 [facility] DME/SUPPLY JUSTIFICATION 2019-05-28 Doctor Unassigned, [facility] 05:01:00 [facility] SLEEP STUDY DATA REPORT 2019-05-20 Doctor Unassigned, [facility] 06:01:00 [facility] SLEEP STUDY DATA REPORT 2019-04-19 Doctor Unassigned, [facility] 06:01:00 [facility] CT HEAD WO CONTRAST 2019-04-08 Mary [facility] 20:29:23 Medical Branch ADC,CLC OR LCC ONLY - 2019-04-08 [facility] INFLUENZA A & B DIRECT 19:57:00 Medical B ranch ANTIGEN ASSIGNMENT OF BENEFITS 2019-04-01 Doctor Unassigned, [facility] 16:37:44 [facility] AUTHORIZATION FOR RELEASE OF 2018-10-21 Doctor Unassigned, [facility] PHI 05:01:00 [facility] Lengthening of Achilles 2015-11-03 [facility] Mobile tendon<sup>1</sup> 05:00:00 Intrathecal 2015-09-16 [facility] injection<sup>2</sup> 05:00:00 Selective catheter placement, 2015-08-02 Pa mor[facility] Dem[facility] vertebral artery, unilateral, 13:00:00 with angiography of the ipsilateral vertebral circulation and all associated radiological supervision and interpretation, includes angiography of the cervicocerebral arch, when performed Gamma-knife surgery 2015-08-02 [facility] Her adams 05:00:00 Angiogram 2015-06-05 [facility] Demar 05:00:00 Ventriculoperitoneal shunt 2014-01-26 Memor [facility] Demar 06:00:00 Cranioplasty 2014-01-21 [facility] Demar 06:00:00 Trachea implantation 2013-10-17 [facility] He rmann 05:00:00 Craniectomy 2013-10-08 [facility] Demar 05:00:00 PEG - Percutaneous endoscopic 2013-10-05 Pa [facility] Mobile gastrostomy 05:00:00 Chemodenervation<sup>1</sup> Mem orial Demar Shunt of cerebral ventricle Tom rial Demar to extracranial site Plan of Care Planned Activity Planned Date Details Comments Source Future Scheduled 2022-12-[address] [facility] 00:00:00 Counseling and Screening Med [facility] (12+) [code = Tobacco Cessation Counseling and Screening (12+)] Future Scheduled 2022-12-[address] [facility] 00:00:00 Counseling and Screening Med [facility] (12+) [code = Tobacco Cessation Counseling and Screening (12+)] Future Scheduled 2022-12-[address] [facility] 00:00:00 Counseling and Screening Med [facility] (12+) [code = Tobacco Cessation Counseling and Screening (12+)] Future Scheduled 2021-12-28 BMI FOLLOW UP PLAN [code [facility] Test 13:43:44 = BMI FOLLOW UP PLAN] Medici ne Future Scheduled 2021-12-28 Screening for malignant [facility] Test 13:42:21 neoplasm of colon Medicine (procedure) [code = 000051794] Future Scheduled 2021-12-28 COVID-19 Vaccine (#1) [facility] Test 13:42:21 [code = COVID-19 Vaccine Med icine (#1)] Future Scheduled 2021-12-28 TETANUS SHOT (ADULT) [facility] Test 13:42:21 [code = TETANUS SHOT Medicin e (ADULT)] Future Scheduled 2021-12-28 Hepatitis C screening [facility] Test 13:42:21 (procedure) [code = Medicine 148536142] Future Scheduled 2021-12-28 Human immunodeficiency B [facility] Test 13:42:21 virus screening Medicine (procedure) [code = 638658406] Future Scheduled 2021-12-28 MEDICARE IPPE (WELCOME TO [facility] Test 13:42:21 MEDICARE) [code = Medicine MEDICARE IPPE (WELCOME TO MEDICARE)] Future Scheduled 2021-12-28 FLU VACCINE > 6 MONTHS B [facility] Test 13:42:21 [code = FLU VACCINE > 6 Medi cine MONTHS] Future Scheduled 2021-12-28 ZOSTER VACCINE (1 of 2) [facility] Test 13:42:21 [code = ZOSTER VACCINE (1 Me dicine of 2)] Future Scheduled 2021-11-22 Screening for malignant [facility] Test 04:40:41 neoplasm of colon Medicine (procedure) [code = 326991944] Future Scheduled 2021-11-22 COVID-19 Vaccine (#1) [facility] Test 04:40:41 [code = COVID-19 Vaccine Med icine (#1)] Future Scheduled 2021-11-22 TETANUS SHOT (ADULT) [facility] Test 04:40:41 [code = TETANUS SHOT Medicin e (ADULT)] Future Scheduled 2021-11-22 Hepatitis C screening [facility] Test 04:40:41 (procedure) [code = Medicine 205214859] Future Scheduled 2021-11-22 Human immunodeficiency B [facility] Test 04:40:41 virus screening Medicine (procedure) [code = 725751044] Future Scheduled 2021-11-22 MEDICARE IPPE (WELCOME TO [facility] 04:40:41 MEDICARE) [code = Medicine MEDICARE IPPE (WELCOME TO MEDICARE)] Future Scheduled 2021-11-22 FLU VACCINE > 6 MONTHS B [facility] Test 04:40:41 [code = FLU VACCINE > 6 Medi cine MONTHS] Future Scheduled 2021-11-22 ZOSTER VACCINE (1 of 2) [facility] Test 04:40:41 [code = ZOSTER VACCINE (1 Me dicine of 2)] Future Scheduled 2021-11-22 BMI FOLLOW UP PLAN [code [facility] Test 04:40:41 = BMI FOLLOW UP PLAN] Medici ne Future Scheduled 2021-11-17 INFLUENZA VACCINE (#1) [facility] [code = INFLUENZA VACCINE Me dical Center (#1)] Future Scheduled 2021-11-17 INFLUENZA VACCINE (#1) [facility] 00:00:00 [code = INFLUENZA VACCINE Me dical Center (#1)] Future Scheduled 2021-11-17 INFLUENZA VACCINE (#1) [facility] 00:00:00 [code = INFLUENZA VACCINE Me dical Center (#1)] Future Scheduled 2021-08-09 Lipid panel (procedure) [facility] 00:00:00 [code = 18773067] Medical Ce nter Future Scheduled 2021-08-09 Lipid panel (procedure) [facility] 00:00:00 [code = 55514796] Medical Ce nter Future Scheduled 2021-08-09 Lipid panel (procedure) [facility] 00:00:00 [code = 76100661] Medical Ce nter Future Scheduled 2019-02-[address] [facility] 00:[facility]:00 measurement (procedure) [facility] Center [code = 64171197] Future Scheduled 2019-02-[address] [facility] 00:00:00 measurement (procedure) [facility]i [facility]yl Center [code = 58768800] Future Scheduled 2019-02-[address] [facility] 00:00:00 measurement (procedure) Medi cheryl Center [code = 98332219] Future Scheduled 2018-11-01 PNEUMOCOCCAL VACCINE 0-[address] [facility] 00:00:00 YRS (2 - PCV) [code = Medica l Center PNEUMOCOCCAL VACCINE 0-64 YRS (2 - PCV)] Future Scheduled 2018-11-01 PNEUMOCOCCAL VACCINE 0-[address] [facility] 00:00:00 YRS (2 - PCV) [code = Medica l Center PNEUMOCOCCAL VACCINE 0-64 YRS (2 - PCV)] Future Scheduled 2018-11-01 PNEUMOCOCCAL VACCINE 0-[address] [facility] 00:00:00 YRS (2 - PCV) [code = Medica l Center PNEUMOCOCCAL VACCINE 0-64 YRS (2 - PCV)] Future Scheduled 1991-06-21 DTAP/TDAP/TD VACCINES ([address] [facility] 00:00:00 - Tdap) [code = Medical Cent er DTAP/TDAP/TD VACCINES (1 - Tdap)] Future Scheduled 1991-06-21 DTAP/TDAP/TD VACCINES ([address] [facility] 00:00:00 - Tdap) [code = Medical Cent er DTAP/TDAP/TD VACCINES (1 - Tdap)] Future Scheduled 1991-06-21 DTAP/TDAP/TD VACCINES ([address] [facility] 00:00:00 - Tdap) [code = Medical Cent er DTAP/TDAP/TD VACCINES (1 - Tdap)] Future Scheduled 1990 HEPATITIS C [facility]CRE[facility]ING [facility] 00:00:00 [code = HEPATITIS C Medical Center SCREENING] Future Scheduled 1990 HEPATITIS C [facility] 00:00:00 [code = HEPATITIS C Medical Center SCREENING] Future Scheduled 1990 HEPATITIS C [facility]ING [facility] 00:00:00 [code = HEPATITIS C Medical Center SCREENING] Future Scheduled 1982 DIABETIC EYE EXAM [code = [facility] 00:00:00 DIABETIC EYE EXAM] Medical C enter Future Scheduled 1982 Diabetic foot examination [facility] 00:00:00 (regime/therapy) [code = [facility] [id number]] Future Scheduled 1982 Urine screening for [facility] 00:00:00 protein (procedure) [[facility] Future Scheduled 1982 DIABETIC EYE EXAM [code = [facility] 00:00:00 DIABETIC EYE EXAM] Medical C enter Future Scheduled 1982 Diabetic foot examination [facility] 00:00:00 (regime/therapy) [code = Med ical Center 880051691] Future Scheduled 1982 Urine screening for [facility] 00:00:00 protein (procedure) [code Pa dical Center = 631581772] Future Scheduled 1982 DIABETIC EYE EXAM [code = [facility] 00:00:00 DIABETIC EYE EXAM] Medical C enter Future Scheduled 1982 Diabetic foot examination [facility] 00:00:00 (regime/therapy) [code = Med ical Center 895782948] Future Scheduled 1982 Urine screening for [facility] 00:00:00 protein (procedure) [code Pa dical Center = 563085173] Future Scheduled 1972 COVID-19 VACCINE (#1) [facility] 00:00:00 [code = COVID-19 VACCINE Med ical Center (#1)] Future Scheduled 1972 COVID-19 VACCINE (#1[facility] 00:00:00 [code = COVID-19 VACCINE Med ical Center (#1)] Future Scheduled 1972 COVID-19 VACCINE (#1) [facility] 00:00:00 [code = COVID-19 VACCINE Med ical Center (#1)] Future Scheduled 1972 CT Colonography (combo) [facility] 00:00:00 [code = CT Colonography [facility] (combo)] Future Scheduled 1972 Screening for malignant [facility] 00:00:00 neoplasm of colon Medical Ce nter (procedure) [code = 920358980] Future Scheduled 1972 Screening for malignant [facility] 00:00:00 neoplasm of colon Medical Ce nter (procedure) [code = 834385116] Future Scheduled 1972 Screening for malignant [facility] 00:00:00 neoplasm of colon Medical Ce nter (procedure) [code = 124137945] Future Scheduled 1972 Screening for malignant [facility] 00:00:00 neoplasm of colon Medical Ce nter (procedure) [code = 985339852] Future Scheduled 1972 Sigmoidoscopy [code [facility] Sigmoidoscopy] Medical Hallee r Future Scheduled 1972 Screening for malignant [facility] 00:00:00 neoplasm of colon Medical Ce nter (procedure) [code = 977631041] Future Scheduled 1972 Sigmoidoscopy [code = [facility] 00:[facility] Sigmoidoscopy] Medical Hallee r Future Scheduled 1972 CT Colonography (combo) [facility] 00:00:00 [code = CT Colonography Medi cheryl Center (combo)] Future Scheduled 1972 Screening for malignant [facility] 00:00:00 neoplasm of colon Medical Ce nter (procedure) [code = 181334043] Future Scheduled 1972 Screening for malignant [facility] 00:00:00 neoplasm of colon Medical Ce nter (procedure) [code = 455081532] Future Scheduled 1972 Screening for malignant [facility] 00:00:00 neoplasm of colon Medical Ce nter (procedure) [code = 167022631] Future Scheduled 1972 Screening for malignant [facility] 00:00:00 neoplasm of colon Medical Ce nter (procedure) [code = 713692669] Future Scheduled 1972 Sigmoidoscopy [code = [facility] 00:[facility] Sigmoidoscopy] Medical Yecenia r Future Scheduled 1972 CT Colonography (combo) [facility] 00:00:00 [code = CT Colonography Medi cheryl Center (combo)] Future Scheduled 1972 Screening for malignant [facility] 00:00:00 neoplasm of colon Medical Ce nter (procedure) [code = 855101023] Future Scheduled 1972 Screening for malignant [facility] 00:00:00 neoplasm of colon Medical Ce nter (procedure) [code = 408974341] Future Scheduled 1972 Screening for malignant [facility] 00:00:00 neoplasm of colon Medical Ce nter (procedure) [code = 179142364] Encounters Start End Encounter Admission Attending Care Care Encounter Source Date/Time Date/Time Type Type Clinicians Facility Department ID 2022-01-09 Outpatient [facility] [id number] [place] 15:21:46 [id number] [facility] 2022-01-06 Outpatient [facility] [id number] [place] 15:19:47 [id number] [facility] 2021-12-19 Outpatient Alyssa, STLMLC STLMLC Common 11:20:01 Bart [facility] 2021-12-06 Outpatient STLMLC STLMLC [id number] Common 14:04:03 [facility] 2021-11-10 Outpatient STLMLC STLMLC Common 09:19:01 [facility] 2021-04-14 Outpatient [id number] ENCPL CVA [facility] 12:29:58 [facility] [place] 2021-04-14 Outpatient 3 [id number] ENCPL REF [id number] [facility] 12:29:39 [facility] [place] 2021-04-13 Outpatient Lay, STLMLC STLMLC Common 13:34:27 [facility] [address] [facility] 2021-04-13 Outpatient Lay, STLMLC STLMLC Common 12:32:17 Louis [address] [facility] 2021-04-13 Outpatient Lya, STLMLC STLMLC Common 12:29:27 Louis 87367 [facility] 2021-04-13 Outpatient Lay, STLMLC STLMLC Common 12:14:47 Louis [address] [facility] 2021-04-13 Outpatient Lay, STLMLC STLMLC Common 12:12:29 Louis [address] [facility] 2021-04-13 Outpatient Lay, STLMLC STLMLC Common 12:08:54 Louis 19739 [facility] 2021-04-13 Outpatient Lay, STLMLC STLMLC [id number] Common 12:05:57 Louis 12017 [facility] 2021-04-[address] [facility] [id number] Common 12:05:29 Louis [address]82 [facility] 2021-04-13 [facility] [id number] Common 12:01:10 [address]3560 [facility] 2019-02-07 Inpatient MHTW MHTW [id number] MHT W 17:09:56 2019-02-04 Inpatient MHS[facility] MED [id number] MHS W 02:22:00 2022-01-20 2022-01-20 Outpatient LIO MANCUSO [facility] [id number] [place] 13:45:00 13:45:00 Health 2021-12-28 2021-12-28 Office TONY Matta [id number] [facility] 09:40:00 12:05:28 Visit Mai AMBULATOR 350.1.13.21 College Y 0.2.7.2.686 of [id number] Medi christy 300 e 2021-12-19 2021-12-19 OFFICE [facility] [id number] Co mmon 00:00:00 00:00:00 VISIT NEW Spir it PT LEVEL 3 - [facility] 2021-12-13 2021-12-14 Outpatient [facility] Surgery [id number] [facility] 08:01:00 14:31:00 , [facility] 2021-12-13 2021-12-14 [facility] [id number] [facility] 08:01:00 14:31:00 Encounter , [facility] 2021-12-13 2021-12-14 [facility] [id number] 08:01:00 14:31:00 Encounter , [facility] 2021-12-13 2021-12-13 Outpatient [facility] [id number] [facility] 08:01:00 23:59:00 Shabbir Medicin e 2021-12-13 2021-12-13 Surgery [facility] [id number] 11:20:00 13:25:00 , [facility] 2021-12-13 2021-12-13 Surgery [facility] [id number] 11:20:00 13:25:00 , [facility] 2021-12-13 2021-12-[address] [facility] [id number] 10:50:00 12:36:00 Event [facility] 2021-12-13 2021-12-13 Anesthesia [facility] [id number] 10:50:00 12:36:00 Event [facility] 2021-11-30 2021-11-30 Outpatient [facility] [id number] [facility] 11:27:08 23:59:00 2021-11-30 2021-11-30 [facility] [id number] 11:27:08 23:59:00 Encounter [facility] 2021-11-30 2021-11-30 [facility] [id number] 11:27:08 23:59:00 Encounter [facility] 2021-11-30 2021-11-30 Outpatient [facility] [id number] [facility] 10:28:55 11:26:00 , [facility] 2021-11-30 2021-11-30 [facility] [id number] 10:28:55 11:26:00 Encounter , [facility] 2021-11-30 2021-11-30 [facility] [id number] 10:28:55 11:26:00 Encounter , [facility] 2021-11-30 2021-11-30 [facility] [id number] 10:28:13 11:26:00 Encounter , [facility] 2021-11-30 2021-11-30 Outpatient [facility] [id number] [facility] 10:28:13 11:26:00 , [facility] 2021-11-30 2021-11-30 [facility] [id number] 10:28:13 11:26:00 Encounter , [facility] 2021-11-30 2021-11-30 Outpatient EL SLE SLE [id number] [facility] 10:27:18 10:27:18 2021-11-29 2021-11-29 Outpatient EL SLEH [facility] [id number] [facility] 15:23:59 23:59:00 2021-11-29 2021-11-29 [facility] [id number] 15:00:00 23:59:00 Encounter [facility] 2021-11-29 2021-11-29 [facility] [id number] 15:00:00 23:59:00 Encounter [facility] 2021-11-29 2021-11-29 Travel [facility] [id number] [facility] 00:[facility]00 00:00:00 [facility] 2021-11-29 2021-11-29 Orders [facility] [id number] 00:00:00 00:00:00 Only , [facility] 2021-11-29 2021-11-29 Orders [facility] [id number] 00:00:00 00:00:00 Only , [facility] 2021-11-29 2021-11-29 Travel [facility] [id number] [facility] 00:00:00 00:00:00 [facility] 2021-11-14 2021-11-15 Outpatient nullFlavo TR Baclofen 4 [id number] Memoria 18:07:00 04:59:00 r Related 95 l (BACRJayme Benz 2021-11-14 2021-11-14 Office [facility] [id number] [id number] [facility] 10:06:08 15:40:59 Visit , JEANNETTE AMBULATOR 350.1.13.21 College Y 0.2.7.2.686 [id number] [facility] 300 e 2021-09-28 2021-09-28 Outpatient CHASTITY [facility] [id number] [place] 14:15:00 14:15:00 RIGOBERTO Health 2021-09-28 2021-09-28 Outpatient [facility] [id number] [place] 13:45:00 13:45:00 Health 2021-09-16 2021-09-16 Telephone Brain [facility] [id number] Univers 00:00:00 00:00:00 Coleen SAMS 350.1.13.10 i ty of [facility] 4.[place].2.[place] [facility] [id number] Pa dical [address] 2021-08-25 2021-08-[address] [facility] ERT [id number] Univers 07:51:00 10:42:00 YAZAN butts [facility] 2021-08-25 2021-08-[address] [facility] [id number] Univers 07:51:00 10:42:00 Yazan SAMS 350.1.13.10 i ty of [place]2.[place] [id number] [facility] 084 [place] 2021-08-24 2021-08-24 Office URVASHI Carrillo 6414 [id number] [id number] [place] 14:15:00 14:49:22 Visit Rigoberto TAO LOPEZ 350.1.13.58 [facility] 9.2.7.2.686 [id number] 1 2021-08-23 2021-08-23 Transition CHANDANA Dash 1.2.840.114 [id number] Univers 00:00:00 00:00:00 of Care Blanca MOSS 350.1.13.10 i ty of [place] [id number] [facility] [address] 2021-08-13 2021-08-22 Inpatient X MIGUEL ANGEL [facility] MHS [id number] Univers 06:11:00 18:15:00 CHARITO butts [facility] 2021-08-13 2021-08-22 Hospital Ebenezer Cabrera [facility] 1.2.840. [id number] Univers 06:11:00 18:15:00 Encounter Jimbo Luna [facility] 350.1.13.10 ity Deepika Castro 4.2.7.2.686 [facility] Charito FOUKE [id number] [address] ([facility]) 2021-08-22 2021-08-22 Outpatient [facility] [id number] [place] 12:45:00 12:45:00 [facility] 2021-08-05 2021-08-05 Ambulatory nullFlavo MNA [id number] Memoria 16:30:00 16:30:00 Pre-Reg r Neurology 16 l [place] Demar 2021-08-01 2021-08-01 Office [facility] 6414 [id number] [id number] [place] 10:15:00 11:56:12 Visit Taylor BURGER 350.1.13.58 Health 9.2.7.2.686 [id number] 1 2021-07-26 2021-07-26 Emergency [facility] [id number] Univers 09:29:00 13:18:00 ANGUS [facility] 2021-07-26 2021-07-26 Emergency [facility] [id number] Univers 09:29:00 13:18:00 Angus SAMS 350.1.13.10 i ty [facility] 4.2.7.2.686 [facility] [id number] [address] 2021-07-19 2021-07-20 Outpatient nullFlavo TR Baclofen 4 [id number] Memoria 15:16:00 04:59:00 r Related 93 l (BACR) Demar 2021-07-13 2021-07-13 Emergency X [facility] ERT [id number] Univers 18:34:00 21:46:00 ELAINA [facility] 2021-07-13 2021-07-13 Emergency [facility] [id number] Univers 18:34:00 21:46:00 Elaina SAMS 350.1.13.10 i ty of [place] 4.2.7.2.686 [facility] [id number] [address] 2021-06-08 2021-06-[address] [facility] ERT [id number] Univers 11:15:00 15:55:00 YAZAN [facility] 2021-06-08 2021-06-08 Emergency [facility] [id number] Univers 11:15:00 15:55:00 Yazan SAMS 350.1.13.10 i ty of [place] 4.2.7.2.686 [facility] [id number] [address] 2021-06-07 2021-06-[address] [facility] ERT [id number] [facility] 08:16:00 12:53:00 YAZAN [facility] 2021-06-07 2021-06-07 Emergency [facility] [id number] Univers 08:16:00 12:53:00 Yazan SAMS 350.1.13.10 i ty of [place] 4.2.7.2.686 [facility] [id number] [address] 2021-06-06 2021-06-06 Telephone Lio Mancuso 6400 [id number] [id number] [place] 00:00:00 00:00:[address] 350.1.13.58 Health 9.2.7.2.686 [id number] 2021-03-16 2021-03-17 Outpatient nullFlavo TR Baclofen 4 [id number] Memoria 18:51:00 05:59:00 r Related 92 l (BACR) Demar 2021-01-20 2021-01-20 (TEL) STLMLC STLMLC [id number] Co mmon 00:00:00 00:00:00 Spirit - [facility] 2020-12-27 2020-12-27 Ambulatory nullFlavo MNA [id number] Memoria 15:30:00 15:30:00 Pre-Reg r Neurology 15 l [place] Demar 2020-11-16 2020-11-17 Outpatient nullFlavo TR Baclofen 4 [id number] Memoria 15:46:00 04:59:00 r Related 89 l (BACR) Demar 2020-11-08 2020-11-08 EXT [facility] OP [place], EXT MSRDP 1.2.840.114 [id number] [place] 00:00:00 00:00:00 Missy LOCATION 350.1.13.58 H ealth 9.2.7.2.686 [id number] 0 2020-11-08 2020-11-08 EXT [facility] OP [place], EXT MSRDP 1.2.840.114 [id number] [place] 00:00:00 00:00:00 Missy LOCATION 350.1.13.58 H ealth 9.2.7.2.686 [id number] 0 2020-10-26 2020-10-27 Outpatient nullFlavo TR BT- [id number] Memoria 15:27:00 04:59:00 r Adult BI 90 l (ABIR) Mobile 2020-08-30 2020-08-31 Outpatient nullFlavo MNA [id number] Memoria 19:00:00 04:59:59 r Neurology 14 l [place] [facility] 2020-08-26 2020-08-26 (TEL) STLMLC STLMLC [id number] Co mmon 00:00:00 00:00:00 [facility] 2020-06-18 2020-06-19 Outpatient nullFlavo TR Baclofen 4 [id number] Memoria 15:15:00 04:59:00 r Related 87 l (BACR) Demar 2020-06-07 2020-06-07 (TEL) STLMLC STLMLC [id number] Co mmon 00:00:00 00:00:00 [facility] 2020-05-10 2020-05-10 (TEL) STLMLC STLMLC [id number] Co mmon 00:00:00 00:00:00 [facility] 2020-04-28 2020-04-28 (TEL) STLMLC STLMLC [id number] Co mmon 00:00:00 00:00:00 [facility] 2020-04-27 2020-04-27 (TEL) STLMLC STLMLC [id number] Co mmon 00:00:00 00:00:00 [facility] 2020-04-22 2020-04-22 (TEL) STLMLC STLMLC [id number] Co mmon 00:00:00 00:00:00 [facility] 2020-04-06 2020-04-06 (TEL) STLMLC STLMLC [id number] Co mmon 00:00:00 00:00:00 [facility] 2020-04-02 2020-04-02 (TEL) STLMLC STLMLC [id number] Co mmon 00:00:00 00:00:00 [facility] 2020-03-29 2020-03-29 (TEL) STLMLC STLMLC [id number] Co mmon 00:00:00 00:00:00 [facility] 2020-03-25 2020-03-25 (TEL) STLMLC STLMLC [id number] Co mmon 00:00:00 00:00:00 [facility] 2020-03-16 2020-03-17 [place] [id number] Memoria 17:24:00 05:59:00 r Spasticity 86 l [facility] (SP[facility]) 2020-03-11 2020-03-11 (TEL) STLMLC STLMLC [id number] Co mmon 00:00:00 00:00:00 [facility] 2020-03-09 2020-03-09 OFFICE STLMLC STLMLC [id number] Co mmon 00:00:00 00:00:00 VISIT [facility] 4 [facility] 2020-03-09 2020-03-09 (TEL) STLMLC STLMLC [id number] Co mmon 00:00:00 00:00:00 [facility] 2020-03-09 2020-03-09 (TEL) STLMLC STLMLC [id number] Co mmon 00:00:00 00:00:00 [facility] 2020-02-26 2020-02-26 (TEL) STLMLC STLMLC [id number] Co mmon 00:00:00 00:00:00 [facility] 2020-02-26 2020-02-26 (TEL) STLMLC STLMLC [id number] Co mmon 00:00:00 00:00:00 [facility] 2020-02-26 2020-02-26 (TEL) STLMLC STLMLC [id number] Co mmon 00:00:00 00:00:00 [facility] 2020-02-16 2020-02-16 (TEL) STLMLC STLMLC [id number] Co mmon 00:00:00 00:00:00 [facility] 2020-02-16 2020-02-16 OFFICE STLMLC STLMLC [id number] Co mmon 00:00:00 00:00:00 VISIT [facility] 4 [facility] 2020-01-23 2020-01-23 (TEL) STLMLC STLMLC [id number] Co mmon 00:00:00 00:00:00 [facility] 2020-01-22 2020-01-22 (TEL) STLMLC STLMLC [id number] Co mmon 00:00:00 00:00:00 [facility] 2020-01-20 2020-01-21 Outpatient nullFlavo TR Baclofen 4 [id number] Memoria 15:40:00 05:59:00 r Related 84 l (BACR) Demar 2020-01-19 2020-01-19 Outpatient STLMLC STLMLC [id number] Common 00:00:00 00:00:00 [facility] 2020-01-19 2020-01-19 (TEL) STLMLC STLMLC [id number] Co mmon 00:00:00 00:00:00 [facility] 2019-12-30 2019-12-30 Telephone Brain MTEDNA 1.2.840.114 [id number] Univers 00:00:00 00:00:00 Coleen Sams 350.1.13.10 [place] [phone] Pa dical nal 044 [facility] 2019-12-17 2019-12-18 [place] [id number] Memoria 14:43:00 04:59:00 r Spasticity 85 l [facility] ([facility]) 2019-12-08 2019-12-08 Telephone [facility] 1.2.840.114 7 [id number] Univers 00:00:00 00:00:00 Coleen Sams 350.1.13.10 i ty of [place] [phone] Pa dical nal [address] [place] [address] 2019-11-04 2019-11-05 Outpt Diag nullFlavo [facility] [id number] [facility] 19:54:00 04:59:00 Services r Outpatient [address] [facility] 2019-10-21 2019-10-21 Telephone [facility] 1.2.840.114 7 [id number] Univers 00:00:00 00:00:00 Coleen Sams 350.1.13.10 i [place] [phone] Pa dical nal [address] [place] [address] 2019-10-21 2019-10-21 Telephone [facility] 1.2.840.114 7 [id number] 00:00:00 00:00:00 Coleen Sams 350.1.13.10 [place] 4.2.7.2.[address] Profess[phone] 2019-09-16 2019-09-17 [place] [id number] Memoria 16:24:00 04:59:00 r Spasticity 83 l [facility] ([facility] 2019-09-08 2019-09-08 Orders Doctor GRANADOS 1.2.840.114 [id number] Univers 00:00:00 00:00:00 Only Unassigned, SALINAS 350.1.13.10 ity of [employer] 4.2.7.2.686 Kwabena as [phone] [address] 2019-09-08 2019-09-08 Orders Doctor GRANADOS 1.2.840.114 [id number] 00:00:00 00:00:00 Only Unassigned, SALINAS 350.1.13.10 [facility] 4.2.7.2.686 [id number] 2019-08-26 2019-08-27 Outpatient nullFlavo TR BT- [id number] Memoria 14:10:00 04:59:00 r Adult BI 31 l (ABIR) Demar 2019-08-13 2019-08-13 Outpatient R OMER [facility] [id number] Univers 14:30:00 14:30:00 AT[facility]SOV[facility] 2019-08-13 2019-08-13 Office [facility] 1.2.660.[id number] [place] [address] 08:35:52 09:05:52 Visit Straazl T Amaya 350.1.13.10 it[place] [phone] [address] 2019-08-13 2019-08-13 [facility] 1.2.696.102 3023 [facility] 08:35:52 09:05:52 Visit [facility] T Amaya 350.1.13.10 [place] 4.2.7.2.686 Professio [phone] [address] 2019-08-12 2019-08-12 Telephone [facility] 1.2.840.114 [id number] Univers 00:00:00 00:00:00 Coleen Sams 350.1.13.10 i [place] [phone] [address] 2019-07-22 2019-07-22 Outpatient R [facility] [id number] Univers 10:20:00 10:20:00 COLEEN bob [facility] 2019-07-09 2019-07-09 [facility] 1.2.840.114 7 [id number] Univers 00:00:00 00:00:00 Coleen Sams 350.1.13.10 i [place] [phone] [address] 2019-07-07 2019-07-07 Telephone [facility] 1.2.840.114 7 [id number] Univers 00:00:00 00:00:00 Coleen Sams 350.1.13.10 i [place] [phone] [address] 2019-07-03 2019-07-03 Orders Doctor DARWIN 1.2.840.114 [id number] Univers 00:00:00 00:00:00 Only Unassigned, SALINAS 350.1.13.10 ity of [employer] 4.2.7.2.686 Kwabena as [phone] [address] 2019-07-03 2019-07-03 Telephone [facility] 1.2.840.114 7 [id number] Univers 00:00:00 00:00:00 Coleen Sams 350.1.13.10 i [place] [phone] [address] 2019-06-30 2019-06-30 Telephone [facility] 1.2.840.114 7 [id number] Univers 00:00:00 00:00:00 Coleen Sams 350.1.13.10 i ty [place].2.[place] [phone] [address] 2019-06-30 2019-06-30 Telephone [facility] 1.2.840.114 7 [id number] Univers 00:00:00 00:00:00 Coleen Sams 350.1.13.10 i [place] [phone] [address] 2019-06-25 2019-06-25 Telephone [facility] 1.2.840.114 7 [id number] Univers 00:00:00 00:00:00 Coleen Sams 350.1.13.10 i [place] [phone] [address] 2019 2019 Urgent Provider, [facility] 1.2.840.114 [id number] Univers 10:50:50 11:57:31 Care AlekpaulinaColeen 350.1.13.10 ity of [place] 4.2.7.2.686 Kwabena as Professio [phone] [address] One 2019 2019 Outpatient R [facility] [id number] Univers 11:00:00 11:00:00 [facility] 2019-06-19 2019-06-19 Nurse DARWIN Garcia 1.2.840.114 [id number] Univers 00:00:00 00:00:00 Triage Michelle Maksim SALINAS 350.1.13.[address] [facility] 4.2.7.2.686 [place]ab[place] as [phone] [address] 2019-06-13 2019-06-13 Telephone [facility] 1.2.840.114 7 [id number] Univers 00:00:00 00:00:00 Coleen [place] 350.1.13.10 i [place]2.[place] [phone] [address] 2019-06-05 2019-06-05 Outpatient R [facility] [id number] Univers 12:40:00 12:40:00 COLEEN bob [facility] 2019-06-04 2019-06-04 Telephone [facility] 1.2.840.114 7 [id number] Univers 00:00:00 00:00:00 Coleen Sams 350.1.13.10 i ty [place].2.[place] [phone] [address] 2019-06-04 2019-06-04 Telephone [facility] 1.2.840.114 7 [id number] Univers 00:00:00 00:00:00 Coleen Sams 350.1.13.10 i ty [place].2.[place] [phone] Pa dical nal [address] [place] [address] 2019-06-02 2019-06-02 Telephone [facility] 1.2.840.114 7 [id number] Univers 00:00:00 00:00:00 Coleen Sams 350.1.13.10 i ty [place].2.[place] [phone] [facility] nal [address] [place] [address] 2019-05-30 2019-05-30 Telephone [facility] 1.2.840.114 7 [id number] Univers 00:00:00 00:00:00 Coleen Sams 350.1.13.10 i ty [place].2.[place] [phone] [address] 2019-05-30 2019-05-30 Telephone [facility] 1.2.840.114 7 [id number] Univers 00:00:00 00:00:00 Coleen Sams 350.1.13.10 i [place].2.[place] [phone] [facility] [address] [place] [address] 2019-05-29 2019-05-29 Refill [facility] 1.2.840.114 [id number] Univers 00:00:00 00:00:00 Coleen Sams 350.1.13.10 i ty [place].2.[place] [phone] [facility] nal [address] [place] [address] 2019-05-28 2019-05-28 [facility] 1.2.840.114 7 [id number] Univers 00:00:00 00:00:00 Coleen Sams 350.1.13.10 i ty [place].2.[place] [phone] [facility] nal [address] [place] [address] 2019-05-28 2019-05-28 Orders Doctor DARWIN 1.2.840.114 [id number] Univers 00:00:00 00:00:00 Only Unassigned, SALINAS 350.1.13.10 ity of [employer] 4.2.7.2.686 [place] as [phone] [address] 2019-05-27 2019-05-[address] [facility] 1.2.840.114 [id number] Univers 00:00:00 00:00:00 Coleen Sams 350.1.13.10 i [place] [phone] Pa dical nal 044 [facility] 2019-05-24 2019-05-25 Between [facility] TIRR [id number] Memoria 13:14:30 13:14:30 Visit r [place] [address] l Demar Benz 2019-05-23 2019-05-[address] [facility] 1.2.840.114 7 [id number] Univers 00:00:00 00:00:00 Coleen Sams 350.1.13.10 i ty [place].2.[place] [phone] Pa dical nal 044 [facility] 2019-05-22 2019-05-22 Sample Maker 2, Adc Lab [facility] 1.2.840.114 [id number] Univers 16:02:32 16:17:32 Visit Coleen De La Paz 350.1.13.10 ity of [place]2.[place].2.[place] [phone] [facility] 353 [facility] 2019-05-22 2019-05-[address] [facility] 1.2.840.114 [id number] Univers 14:19:49 15:54:29 Visit Coleen Sams 350.1.13.10 i ty [place]2.7.2.[place] [phone] [facility] nal 044 [facility] 2019-05-22 2019-05-22 Outpatient R [facility] [id number] Univers 14:20:00 14:20:[address] [facility] 2019-05-22 2019-05-[address] [facility] 1.2.840.114 7 [id number] Univers 00:00:00 00:00:00 Coleen Sams 350.1.13.10 i ty [place].7.2.[place] [phone] Pa dicil nal 044 [facility] 2019-05-22 2019-05-22 Telephone Maria Esther [facility] 1.2.840.114 [id number] Univers 00:00:00 00:00:00 Strahil T [place] 350.1.13.10 ity of [place].7.2.[place] [phone] Pa dicil nal 085 [facility] 2019-05-20 2019-05-20 Outpatient R OMER [facility] [id number] Univers 20:00:00 20:00:00 OMER MAYO ity of [facility] 2019-05-20 2019-05-20 Sample Maker 1, [facility] Sleep Lab Bed [facility] 1. 2.840.114 [id number] Univers 13:52:54 16:22:54 Visit Omer Mayo 350.1.13. 10 ity of [place]2.[place].2.686 [place] [phone] [facility] [address] 2019-05-20 2019-05-20 Telephone Maria Esther MT[facility] 1.2.840.114 [id number] Univers 00:00:00 00:00:00 Strahil T [place] 350.1.13.10 it[place].2.[place] [phone] Pa dicil nal 085 [facility] 2019-05-20 2019-05-20 Orders Doctor DARWIN 1.2.840.114 [id number] Univers 00:00:00 00:00:00 Only Unassigned, SALINAS 350.1.13.10 ity of [employer] 4.2.7.2.686 Kwabena as [phone] [facility] [address] [place] 2019-05-07 2019-05-07 Telephone Azar [facility] 1.2.392.122 [id number] Univers 00:00:00 00:00:00 Shiwan [place] 350.1.13.10 i ty [place].2.[place] [phone] Me dical nal 059 [facility] 2019-05-06 2019-05-06 Telephone [facility] 1.2.840.114 7 [id number] Univers 00:00:00 00:00:00 Coleen Sams 350.1.13.10 i ty of [place].2.[place] [phone] [facility] 044 [facility] 2019-04-25 2019-04-25 Telephone [facility] 1.2.840.114 7 [id number] Univers 00:00:00 00:00:00 Coleen Sams 350.1.13.10 i ty [place].2.[place] [phone] [address] 2019-04-19 2019-04-19 Orders Doctor DARWIN 1.2.840.114 [id number] Univers 00:00:00 00:00:00 Only Unassigned, SALINAS 350.1.13.10 ity of [employer] 4.2.7.2.686 Kwabena as [phone] [address] 2019-04-16 2019-04-16 Outpatient R OMER [facility] [id number] Univers 15:00:00 15:00:00 OMER MAYO ity [facility] 2019-04-16 2019-04-16 Telephone [facility] 1.2.840.114 7 [id number] Univers 00:00:00 00:00:00 Coleen Sams 350.1.13.10 i ty of [place].2.[place] [phone] [address] 2019-04-16 2019-04-16 Telephone [facility] 1.2.840.114 7 [id number] Univers 00:00:00 00:00:00 Coleen Sams 350.1.13.10 i ty of [place].2.[place] [phone] Pa dic[address] 2019-04-11 2019-04-11 Telephone [facility] 1.2.840.114 7 [id number] Univers 00:00:00 00:00:00 Coleen Johnathan 350.1.13.10 it y of [place] 4.2.7.2.686 [place] Professio [phone] [facility] [address] Office [facility] One 2019-04-08 2019-04-08 Emergency [facility] 1.2.840.114 [id number] [facility] [place] 13:31:16 16:10:00 Mary Sams 350.1.13.10 ity of [place].2.[place] [phone] [facility] [address] [place] 2019-04-08 2019-04-08 Telephone [facility] 1.2.840.114 [id number] Univers 00:00:00 00:00:00 Coleen Sams 350.1.13.10 i ty of [place].2.[place] [phone] [facility] 044 [facility] 2019-04-01 2019-04-01 Sample Maker Ester [facility] Main [facility] 1.2.8 40.114 [id number] [facility] 13:02:30 13:17:30 Visit Coleen De La Paz 350.1.13.10 ity of [place].2.[place] [phone] [facility] 353 [facility] 2019-04-01 2019-04-01 Office [facility] 1.2.840.114 [id number] [facility] 10:41:54 12:02:13 Visit Coleen Sams 350.1.13.10 i ty of [place].2.[place] [phone] [facility] 044 [facility] 2019-04-01 2019-04-01 Orders Doctor DARWIN 1.2.840.114 [id number] Univers 00:00:00 00:00:00 Only Unassigned, SALINAS 350.1.13.10 ity of [facility] 4.2.7.2.686 Kwabena as [phone] [facility] [address] 2019-02-08 2019-02-21 Inpatient nullFlavo TIRR [id number] Memoria 02:51:00 22:59:00 Rehab [facility] 29 l [facility] 2019-02-04 2019-02-08 Inpatient [facility] [id number] [facility] 08:22:00 02:15:00 [facility] 23 l [facility] 2018-11-27 2018-11-27 Telephone Basil Singer [facility] 1.2.840.114 [id number] Univers 00:00:00 00:00:00 C [place] 350.1.13.10 i [place].2.[place] [phone] Pa dical [address] 2018-11-12 2018-11-21 Office Basil Singer [facility] 1.2.840.114 [id number] Univers 14:40:43 08:13:38 Visit C [place] 350.1.13.10 i ty [place].2.[place] [phone] Pa dic[address] 2018-11-13 2018-11-13 Telephone Basil Singer [facility] 1.2.840.114 [id number] Univers 00:00:00 00:00:00 C [place] 350.1.13.10 i ty [place] 4[place]2.[place].2.[place] [phone] Pa dicil nal [address] [place] [address] 2018-10-21 2018-10-21 Orders Doctor DARWIN 1.2.840.114 [id number] Univers 00:00:00 00:00:00 Only Unassigned, SALINAS 350.1.13.10 ity of [employer] 4.2.7.2.686 Kwabnea as [phone] [address] 2018-10-14 2018-10-14 Telephone Basil Singer [facility] 1.2.840.114 [id number] Univers 00:00:00 00:00:00 C [place] 350.1.13.10 i ty [place].2.[place] [phone] Pa dicil nal [address] [place] [address] 2018-10-09 2018-10-09 Bsail Cartwright [facility] 1.2.840.114 [id number] Univers 00:00:00 00:00:00 C [place] 350.1.13.10 i [facility] [place] 4.2.7.2.686 Arianna Apariciolakesha [phone] Pa dic[address] 2018-09-27 2018-09-28 Outpatient nullFlavo MNA [id number] Memoria 14:00:00 04:59:59 r Neurosurger 13 l y [facility] 2018-09-24 2018-09-24 Observatio nullFlavo [facility] [id number] Memoria 05:31:00 20:30:00 n r Mobile 89 l [facility] 2018-09-24 2018-09-24 Outpatient U [facility] [id number] Memoria 00:31:00 00:31:00 [facility] 2018-08-26 2018-08-28 Phone nullFlavo MNA [id number] Memoria 13:34:55 04:59:59 Message r Neurosurger 45 l y [facility] 2018-08-09 2018-08-11 Phone nullFlavo MNA [id number] Memoria 20:07:22 04:59:59 Message r Neurosurger 44 l y [facility] 2018-08-05 2018-08-07 Phone nullFlavo MNA [id number] Memoria 18:07:58 04:59:59 Message r Neurosurger 43 l y [facility] 2018-08-05 2018-08-07 Phone nullFlavo MNA [id number] Memoria 18:06:33 04:59:59 Message r Neurosurger 42 l y [facility] 2018-08-02 2018-08-04 Inpatient nullFlavo [facility] [id number] Memoria 20:54:13 20:20:00 r Mobile 27 l [facility] 2018-08-02 2018-08-04 Inpatient U [facility] 7527 [facility] 20:29:00 15:20:00 NOPIOTR 2018-01-25 2018-01-26 Outpatient nullFlavo MNA [id number] Memoria 17:45:00 05:59:59 r Neurosurger 12 l y [facility] 2018-01-23 2018-01-25 Phone nullFlavo MNA [id number] Memoria 17:53:00 05:59:59 Message r Neurosurger 41 l y [facility] 2018-01-22 2018-01-23 Outpatient nullFlavo [facility] [id number] Memoria 19:49:00 05:59:00 r Demar 26 l [facility] 2018-01-02 2018-01-04 Phone nullFlavo MNA [id number] Memoria 13:17:00 04:59:59 Message r Neurosurger 40 l y [facility] 2018-01-02 2018-01-04 Phone nullFlavo MNA [id number] Memoria 13:16:00 04:59:59 Message r Neurosurger 39 l y [facility] 2017-12-12 2017-12-14 Phone nullFlavo MNA [id number] Memoria 17:27:00 04:59:59 Message r Neurosurger 38 l y [facility] 2017-12-13 2017-12-13 Outpt Diag nullFlavo [facility] [id number] Memoria 00:30:00 00:30:00 Services r Outpatient 07 l Imaging [facility] 2017-11-13 2017-11-15 Phone nullFlavo MNA [id number] Memoria 13:41:00 04:59:59 Message r Neurosurger 37 l y [facility] 2017-10-31 2017-11-02 Phone nullFlavo MNA [id number] Memoria 18:33:00 04:59:59 Message r Neurosurger 36 l y [facility] 2017-11-01 2017-11-01 Observatio nullFlavo [facility] [id number] Memoria 06:09:00 20:56:00 n r Demar 25 l [facility] 2017-10-15 2017-10-17 Phone nullFlavo MNA [id number] Memoria 13:43:00 04:59:59 Message r Neurosurger 35 l y [facility] 2017-06-23 2017-06-29 Inpatient nullFlavo [facility] [id number] Memoria 23:20:00 02:03:00 r Demar 97 l [facility] 2017-03-01 2017-03-03 Phone nullFlavo MNA [id number] Memoria 15:43:00 05:59:59 Message r Neurosurger 34 l y [facility] 2016-12-16 2016-12-17 Observatio nullFlavo [facility] [id number] Memoria 01:21:00 01:35:00 n marcelino Benz 72 l [facility] 2016-10-27 2016-10-27 Outpatient MHANA BEAR [id number] Memoria 10:00:00 10:00:00 11 [facility] 2016-10-17 2016-10-18 Outpatient nullFlavo [facility] [id number] Memoria 13:40:00 04:59:00 r Demar 21 [facility] 2016 2016-07-11 Inpatient nullFlavo [facility] [id number] Memoria 21:32:00 16:20:00 Rehab r [facility] 20 [facility] 2016-05-02 2016-05-03 Outpatient nullFlavo [facility] [id number] Memoria 14:46:00 05:59:00 r [facility] 18 [facility] 2016-04-25 2016-04-26 Emergency nullFlavo [facility] [id number] Memoria 20:14:00 00:26:00 marcelino Benz 19 [facility] 2016-04-08 2016-04-09 Emergency nullFlavo [facility] [id number] Memoria 20:41:00 00:36:00 marcelino Benz 17 [facility] 2016-03-31 2016-04-01 Emergency nullFlavo [facility] [id number] Memoria 21:10:00 04:17:00 marcelino Benz 16 [facility] 2016-01-28 2016-01-28 Outpatient ANA BEAR [id number] Memoria 11:30:00 11:30:00 04 [facility] 2015-11-10 2015-12-31 Inpatient nullFlavo [facility] [id number] Memoria 01:24:00 00:31:00 Rehab r [facility] 13 [facility] 2015-12-09 2015-12-10 Observatio nullFlavo [facility] [id number] Memoria 18:29:00 21:46:00 n marcelino Benz 14 [facility] 2015-12-09 2015-12-09 Outpatient MARIANELA BEAR [id number] Memoria 08:00:00 08:00:00 10 [facility] 2015-12-03 2015-12-03 Outpatient MARIANELA BEAR [id number] Memoria 09:15:00 09:15:00 09 [facility] 2015-11-03 2015-11-03 Outpatient IE ANA [id number] Memoria 14:45:00 14:45:00 08 [facility] 2015-09-10 2015-09-10 Outpatient IE ANA [id number] Memoria 11:15:00 11:15:00 03 [facility] 2015-09-01 2015-09-01 Outpatient ANA ANA [id number] Memoria 08:00:00 08:00:00 07 [facility] 2015-08-20 2015-08-21 OBS [facility] [id number] [facility]oria 11:24:00 04:59:00 Surgery r Mobile 12 [facility] 2015-08-20 2015-08-20 Outpatient ANA ANA [id number] Memoria 08:00:00 08:00:00 06 [facility] 2015-08-06 2015-08-07 Outpatient nullFlavo [facility] [id number] Memoria 12:46:00 04:59:00 r [facility] 11 [facility] 2015-08-02 2015-08-02 Bedded [facility] [id number] Memoria 10:08:00 17:45:00 Outpatient r Mobile 10 [facility] 2015-06-09 2015-06-29 Inpatient nullFlavo [facility] [id number] Memoria 16:22:00 23:41:00 Rehab r [facility] 07 [facility] 2015-05-11 2015-06-10 Challenge nullFlavo [facility] [id number] Memoria 14:00:00 04:59:00 Program r [facility] 00 [facility] 2015-06-04 2015-06-04 Outpatient IE ANA [id number] Memoria 10:30:00 10:30:00 01 [facility] 2015-05-24 2015-05-25 Outpatient nullFlavo [facility] [id number] Memoria 14:45:00 05:59:00 r [facility] 08 [facility] 2015-05-11 2015-05-12 Outpatient nullFlavo [facility] [id number] Memoria 20:49:00 05:59:00 r [facility] 09 [facility] 2015-04-28 2015-04-29 Outpatient nullFlavo [facility] [id number] Memoria 18:05:00 05:59:00 r [facility] 05 [facility] 2015-04-27 2015-04-28 OBS Day nullFlavo [facility] [id number] Memoria 12:27:00 05:59:00 Surgery r [address] 2015-04-02 2015-04-03 Outpt Diag nullFlavo [facility] [id number] Memoria 15:27:00 05:59:00 Services r [facility] 03 [facility] 2015-04-02 2015-04-02 Outpatient MHIE IE [id number] Memoria 12:30:00 12:30:00 00 [facility] 2014-09-17 2014-09-17 nullFlavo [facility] [id number] Memoria 10:18:00 12:50:[address] 2014-04-05 2014-04-05 [facility] [id number] Memoria 12:06:00 17:14:[address] 2014-01-20 2014-01-28 Inpatient nullFlavo [facility] [id number] Memoria 23:49:00 22:30:[address] 2013-09-30 2013-11-03 Inpatient nullFlavo [facility] [id number] Memoria 03:15:00 22:30:[address] Results Test Description Test Time Test Comments Results Result Comments Source Tissue Exam 2021-12-16 12:00:53 Test Item Value Reference Range Interpretation Comme nts Case Report (test code = 104) Surgical Pathology Report Case: [id number] Authorizing Provider: Jeannette Alexander MD Collected: 12/13/2021 11:35 AM Ordering Location: [facility] Received: 12/13/2021 12:40 PM SERVICES Pathologist: June Esposito MD Specimen: Explant, previous intrathecal pump DIAGNOSIS (test code = 3220) h1lbfOPpWISfd0oaQGNjkQJnByHmXlHiPwMtQf pc dWMxIHtccnRmMVxlcGljOTYwMlxhbnNpXHNwbHRw Z1JifenmXEnoLO5sGM0agRkuyJXmqDKwNYGjCjCv l9hnv158rBSub3moPXHTtfumgVb2lZjfO97ii6U9 AhowX87czWIaWGI0VVFoDCWiwCGkYWGxFJO0OQVg uXZzK2xsCCGrAP0fhcshLDajSEooTVUalZH9SHVk mVJmS6EmLOUbOQgwJJPalou8IgOvXa8awVNhnTmn MFxwYXJkXHBsYWluXGZzMjAgTUVESUNBTCBERVZJ F7IaUJKRSf9ZRJLGJUCQLrJaQC4PSkMANWZOOMia NTFLHGQxJGHHFG7OETv6DWlbjaQbEUSrEKZoMM8X XZoXPLsrJKCHNSMZQLJADrYSDd8EDuUVYWDFIPeU SDYEGFwBTdUWVlsZPGlQMCEFO3GpC7FZHUbZQ7EQ QHNYF1IWGTWGUV8CMCbxGMXaaNLzjFgzwwDmAVhf c4XmYTyiNSLlKB5kxWwoJQBoSK8bJPOqI7cefF6c fii6CbDkOKMxYfF4KYEfrlK2Qjc3PPRhBUtqx9cj y0QbQTWyCGm3aYnePtFjCFQzg4wmteQqIyNzHFZv HDXiEIGtjVAxQ568n4tte1stvlWakPU6KNGwGKH3 GLamnnBchmH8VWpddAVdOnD1LUlcdjIoYEtpblQx fcIpCvv2DUIwV127IMT1oJsxi1dsBYO8WUGgJQGk ElRgTj2haMUmP921LMPgNMLHLYJdvSb1QUSvmcRp rfJylICVm068O429c4fkDPIficDqjZeEjofuj4kv K350UCRsbMMgnpIfQuFvSZBuhLDaoXY3GEKaXE5w mlmvEYeiOHmsEOZfxlR5HMLhvCGoU2YdMVHqVB8h biahWRQ7KAltUXIuLSI4GzUhWSKdm4Bmcnj4JxWa by5dws11QUX8y9ZnfNxlALP3QYP6TyDuDz5tjKZo QIJaIW3fYxNtyVQdRWUxhi00sKjqVSjcQMY1IPJp tcXsu6Qfh3abKiMqtcWfU7tuB4OfWTJxYSXmWYWb MbGognMil4Irl0SlfGJuqRb9v1rsOBFxEYNmcAif k1xrJHZ9BAYjsXHaI9mwyI8bDZKsIF8cphabv5gz TBldQBagESYsvOF6ycG0SLAxkAIvN1TjoO3bLQNd YObiVCTwhet5YhRjSm2mrURvhEjbYCnzSjveYJvs XHBnbmNvbnRccGduZGVjXHBsYWluXHBsYWluXGYw XGZzMjRccWxcbGFuZzEwMzNcaGljaFxmMVxkYmNo DCJdRAswQ0ziXsDvOsCzKrv9WXObjXLdRIJjKdj1 CCCzkZYyRXHHkJvxpY5hXDIabAbtiE0qbBQ8AJPp fbZgjIGZaD8jGROFbT4tDvG1LAYaUbv6BGJ4EvAf cGFyfX0= CPT Code(s) (test code = 3357) l5jhjDJsPYAzqEA0JkDhMSXwr7aoe2JooOVj cGFy UBsbpMMlsjMein78hQU6tG84YD9rSHTbDnL3TQSm mcR0Oqa5YURgRJGdzQBjM390c0pjo8efqoXzsQU3 qYjpYOBotmedRtB8TGlyMZZnucteMLt2MLgaEVCw lSU6OVYecTTlA5RlMJFkGR4bmmi6VNM9YMgkIVPy IeK3KIJryCRhEFEppKkeVScte987KZB8QmZfAQKc pbYqxNcuaY0uMcLtNQT3LNYuQEmoSWX0 CLINICAL HISTORY (test code = 3356) x9javXLmDIEucCJ4LmAwTSBvi8vps3V sdHBncGFy VRgqvJMerzEjio74tQV1cM13KB4wHIXvUmA6BWAi tyJ3Pip2CCNlQTOwvPEuV898v5sga7xvwbOxyYR3 vEzmZAEfkizsXsO3HFdaZBDyquouSZs8UMydAEEo mHD1ICYeeKFsT5LnHOIdBL1tclp9UYC9MXpcAXWw ApI9LGYzpEEjTTKbkDvgMJivu792BHX4JiCwKFTc xnBqiXxxeW2vZoDfVLIHoDQsbDtlpGP5XEWvvb7= GROSS DESCRIPTION (test code = s0oytUXeDLMmtQODRLMpM1gesdUoYMGssQKy [facility] [id number]) hzhrKPxtDO5lHI4stHzjhPIlzATtPU0OUPVxFjGs FOXoqCOiyuHeGtYiFDQteVTlxGU2SEFvJI4sptbz AVntTDqyLXYxzlK7GJPskFBlR5HwTBOkVS1tcnuh KAZ5BSkumZ6xzzCXBwtfMa7kwNMdfQpjMeWeYvXj CUZoXIXuZCRhaEitOLTzXQj6dN7LKovlNPU8EQDC ItoqGYRsPN3Gn9auKLAvfUJjGTS1ADtovISpOVIx DJQiIJm6NJDlPNgebCYtUL1kiDtrBdwfsCmme9Zc sURbREluIPSbZVQcATzsSIAqZF4UZxJtDDPeUvD2 PmQfVKo5LEj1KJ9CSyXsJONkLMR2WtW7UCQuXOm4 MCuuHK8RGEIkLgv3IMssNnW5UGF6DfEaFHCxYqDe SSSdDKFxSKnaWSahoMGjSM8yuBmwvVXrqaJRUvBU kBXwXH76JdpiVZLaIKbaJLLuJ72jl9TUw7RnXB9K CSm4mxTjmzagfS4zBVOiuiWyESdowHLwP9ddJgUn MCBSZWNlaXZlZCBmcmVzaCBsYWJlbGVkIHdpdGgg fPfeVERraTmjgbYrO2R6dnTwDT0vMVIeRHJsD1Go ZKLfA84xXMXckE0bCCByVU5hYITqgFAjQD39EoMj ibJgUS6rLKLct12hZqCGmI4hrLXsONGjAYpHRFTl z5ajKD4cCWLxLEAcyN2lUZ5yFDN8aimwIvH5Ondw iHM4HgXyxFAcRmCsC63xWRGUjUNiAGZ5wIWsMGrn DRrcu7RztKAjKDE8pEKuDRElLMWlCt84IFRDSiLS U5AaQKV5YHNeWTuzONZdrDAwvlitVUDMKjPcOKGX W2MtSsZyIPKtru1yipJnwG49x0qdNNDmVBhcBQFf s3UdGpMmVk9qn7KkxSkrirYeKEDwIME6Sv3duSCc UO7lvg2fonPonvt4HswckU6eCFragO9hIEPcKSco ACIkX8GzwN8uSJ7ZVgmsRKSsOJURK6RaW02khPcy LDYPCwebcAMmngpgpHnvUtBdtBCfVqPojJlmmG36 RTJfzQEtTID0II9aIUCzpzajHAJwDBXlAUR8JPbr fL94hPEnSBIkBXOrbDAzvN9MXPIuUPM3ZVrpuK13 nPIbZG3IISRkNCZ1KEBikRFcLBW0MZ6kcK5AiU== MICROSCOPIC DESCRIPTION (test code = n2pmmGIhGZUkdGM8VrQqGXTeb2dvx6 BsdHBncGFy 3371) VEonhDJavxUzrr24xYD3mY53LP9aSTKqDjU5SZQh smL8Qff1QZVjOOBloZJsV233f4ied9sezpGrfTC4 iSemCGReyaokQxK8SQmxIGTsipixJZc7MFyhSODv qNK0AJNpsBZfF0YlVXNjSO2fmrl1RNT8MGzvZCPw BxN1IWHbqYHkSSPzkFevNKzxa019ZOV1PeMvWXXd hpKrsJyqaK2iTkEbZBFCg0RcINVqrLvdZZBkVP1i IFxwYXJ9 Gross assessment was performed at (test [facility] enter, code = 2777) Department of Pathology, [address] [place] [address], Technical component was performed at [facility] er, (test code = 2778) Department of Pathology, [address] [place] [id number], Professional component was performed at [facility] enter, (test code = 2779) Department of Pathology, [address] [place] [address], [facility] [id number] 12:00:53 Test Item Value Reference Range Interpretation Comments Case Report (test code Surgical Pathology = 104) Report Case: [id number] Authorizing Provider: Jeannette Alexander MD Collected: 12/13/2021 11:35 AM Ordering Location: [facility] Received: 12/13/2021 12:40 PM SERVICES Pathologist: June Esposito MD Specimen: Explant, previous intrathecal pump DIAGNOSIS (test code = a0hmpZQfLZWji6cbMJBlmJG 3220) uTristanEwMzNcZnRuYmpcdWMxIH tccnRmMVxlcGljOTYwMlxhb hNcCESwhZMlS7AbaogzCYbx EZ3eQR8naFcryYJitVLbCBC nDnQzc2tfz387nXScn1lzJS FVjqcbmYw9dSgaY67pz2J5Y rixK30yaQOxXKM1JJJeDWGc vZXuOBIyOBF7YRWdeEHqO7s aGACwBH8unidiNPbwVHabVS TyvPO3RQWsrOJdN7RkCHQaW HzpVTVxyin9FpKjOb2dkQWw eTcyMFxwYXJkXHBsYWluXGZ zMjAgTUVESUNBTCBERVZJQ0 RyVKJOJb3DQGKUGGLFItReJ C1YEmEGTYWQBSxpULNPCVWp YTDKHM1LZYq1UEprmtKnSOX fCSHtIR6GKThFJVtrRAYCFG BQGWTGEfLXJp4MWqALRWVOC ElGSUNBVElPTiBPTkxZIChQ HAXWG4DvU0QIGDiOB2JALDA EY2GKSIGOBM4IGRvtDHOvcZ IcfTavqaKnEJjkw7GqTUeyR IYuRQ9dbFqnFCOoDR5rYXHu F0bgeQ9ftvw8BcCeSIVcUrR 0JYSpsyS1Itf6HHNkIOvgg9 wpl2DzTMDyAQj6rUsrUhDjD BZsa9qkcfYpItUgDZNnJCVj LGBarUOhC757z9ipc9ztmiG yfTH1ANSgRGP8LVfprqIzoz R9NJqeiSIkRzB8DGnkfzYtC EcyuqKdhsGjQih1JUUxZ655 OLN5mOomu9ozXLU0QMGyWFQ vNqDePr1rzDLqC879GEJeKS XNWIKcvLl1YOTuitIbcmIfr LCGx294K957m3lqMKZwfnJl jMyGjqbst8jiD813FITwcUJ zyhLbBwLrOHKhhYBeqBM8JR LyMV2koajqPTksHEkdSVQcu aN4MZIjpIXdB6ImZCIbML5r dcoaQCY4XJnvCAFnYWY5LtU eNJPea3Xirmj2MaCohp9gqm 08JBA2j8IzpCfdCIU5MZN3B vTpGf0tsQRhZCMkHJ6sZcJl vQWwMHVgqo07rGweILfnLRK 2UTMpumLsz0Qur2egRoYjxl DrL0kuK2JxALZsUGTyGUGoP jFpvvLtd5Gze9SroUTbtFt3 j1zxSJFxQUFwzXiwx5rwZGS 3JWMcbPSvO8fgjM5aXIXvIW 9qzqdjv4rrAGvpUXoyPBJqe SW5cvQ9OFSomLOxX1YbxY3b IGJhTNqyRIPwiqs0CiVmSl2 vdGVyeTcyMFxzYmtwYWdlXH BnbmNvbnRccGduZGVjXHBsY WluXHBsYWluXGYwXGZzMjRc cWxcbGFuZzEwMzNcaGljaFx iGVilBmZsATCnKUttN2jjYm QpWsObRvb5AGXmkMYrUWVmR ja6WVWdwDCaMAGMpOhcsV1k KYArjLcdqT9icON2UDInbyD lnLNWaB3vIPEUxB0oRyA8QF JkSjv6GWO3IhRlnQFqpQ4= CPT Code(s) (test code x2hphDMnDVVrhBE3SeFjVMI = 3357) jg1ejf9KcsPOjtMBdBErsgV QmveUszc33uUD9zS93UE1sZ BWgSzR0TQMgcmY8Zxn6FTMq XDMjuOTmY726k0gsp0ntvlZ ahSI3fZmeLRQdgmxgPbD9AO tiKNBmvknqZRb2CTbiRHWdt IF8FFVzmYBxP4JlSDQkLT2b lhd2WRD7PCzuKGUtCtT8PGZ kaSQzBHZnfUowSGldl757KA K1JdYuIYIrhcHrtEkrkO6aJ mWwBKA6IYYjYMgkGOG2 CLINICAL HISTORY (test p5izbOSjJPAggXU1GpUbHGC code = 3356) mb7ozt1UfgPHpeMLhXCykeV YvjdZuxr07jNC1vJ17HY7jK CDtNiN4GSOndyP9Lbd5XDMq IVSbfHCeP187w3qmf4mgidX egOS2tYyaXDRxiqhxJeX3VB zcTUOqrlhcIZr3KZmtDAFov QL8XMSwmQDpJ6OyXTUgDN5w xwl1KBQ3HKlpXCKjHwM2RAC pwQUuRXLttSntSHopw517DR C0QcUlGZOwgkGgbWggtR7tF bPxWXORgWYkbWbqsVH1HWSe cn0= GROSS DESCRIPTION v8mskWJcFZCkxRYCLSIpX6v (test code = fqzAqYZKuzUWzD8BvnvvySX [id number]) keMJ8fWK7ezYuzhTWdyGBeE D2AAQGvQgVxOZAelKPuxiDw HsTyENYtdHBwtAJ5MQJcCZ0 fgfdjFUnmUIxiMRSalvY7MT RzfLMkL6AhKMSwNR7cykvqZ TC9KKwpoX1zarFTNsvbKr3k dHRibHtcZjFcZmNoYXJzZXQ kQVMasTvhCQFiPNc0yH1LEa zmVUK4KAIQEhflLWOgBU9Lq 9yyYRZeoZRkZGK9ZSfiaNPm TKTsHSVdDNe1OXWeAXrktQV xBR1beGxsQnnonGelc4TfxX BcXGlkIDUxMDAyIFxcZGIgI G4GIwZyZWMhHzF6RtTcHVt0 KJc2CU4PAqHjIGYgUTI1RmN 5KFSbWWe4CNteYX9QLAYyUe y8IPmfPbT2DYL4JbVdEZOmQ iBcXGYgQXJpYWwgXFxmbCBc SI6fyBrlxNSozpJOKbWMyUG yOM58OapcEOFuQJvfMIJtO9 8ay3YDh4QxWX9EBIo0ylJyy dxojS0iUKRpjvEvQFzxkQSm H1vfFeLwJDSTGVSsiQMcOKU mcmVzaCBsYWJlbGVkIHdpdG dxpWubSEBfkKulqcGlW4E9d nIuTV0sYTOmKZHcU5VlAAMl N33pKWKduH4kVNSgXE4nYAT xmUNsNY95QxRifwEjBG6jHM Jay26nBrYQnD1neXYdPBVnH GsYJZTfc5seAD4cQVKjRLNf mB6lYL2bAJY0hjfrMhZ6Ggd nvDY7FsGnyRKtJrSpV74oIV ENjHMqRQU0jPGaXYwpBUgcp 7RfyHOtBUS3vEMfQUVtJQTh Jy47AHDRBfEDD9QsAZK7SPE xIEggTWVkdHJvbmljLCBJTk DrPRZHA3FjTuWwWAYyad3uu tNfmP98e7tnKEXhNMzyPJDs i2CuTnDjEv9cx2VdrJijbtI yVXJgRLJ7Ds4leCFaGQ3ohu 7wpmMdlzo3GklugA6sNYfue F9dZUNnGKvqCQNaK4TgsB3b QC2WOqxoTGHnHMHDZ9UvC32 cbGluZSANClxwbGFpblxlcG qsYfNscNSfMgLcwGyihO52U REdgIBbAES2NW4bSELupjvx DBHqSXGoLID4ZLlcfX92oNU oUBPfYHNkgHVvyL2FWWUxXS X4DWbggO02nDAdJG5IEIOnP GJ5AFXvyHOzINU5HN7lbP0Z fQ== MICROSCOPIC p1rawRQvIRUjoWG1KgOiKZQ DESCRIPTION (test code bm4odr9AeoZIfzSRbDCfaeV = 3371) ZefpDlcz41pQB4qB38CD4lE DBkRqT3FPJjpmS4Zzp9CCOd SCQyjWQnY740p3dhg9qtfrE amAM9eNcaPEDpjczuLkA0LV huYXMkggjsSUp8BMbrSPMwd QG3OQCwbXWfQ1QoRZWxDL7z rjx0CGG7OKshJGQeUbZ2SZI poAXuWPNdjPtzHWecz997LZ N5UyWwIDLgdlUazVyguB3rY tCmYENYj9MzUQYztYriAKJa FL2hGKgkHJY2 Gross assessment was [facility] performed at ([facility], code = 2777) Department of Pathology, [address] [place] [address], Technical component [facility] was performed at ([facility], code = 2778) Department of Pathology, [address] [place], [place] [id number], Professional component [facility] was performed at ([facility], code = 2779) Department of Pathology, [address] [place], [place] [address], [facility] [id number] 12:00:53 Test Item Value Reference Range Interpretation Comments Case Report (test code Surgical Pathology = 104) Report Case: [id number] Authorizing Provider: Jeannette Alexander MD Collected: 12/13/2021 11:35 AM Ordering Location: [facility] Received: 12/13/2021 12:40 PM SERVICES Pathologist: June Esposito MD Specimen: Explant, previous intrathecal pump DIAGNOSIS (test code = o2spuADlEXEqx1pdIOJxnXV 3220) uZzEwMzNcZnRuYmpcdWMxIH tccnRmMVxlcGljOTYwMlxhb eNyHMMlyFNoP1WrflqhAFcw RR4pCT1snXladOYgtXChMFS cAgIpa8nnq284rERif6gmXI MNwtypiRy3bGxjG91zp0G2P qmjD26unGIiFMV4SIBpBGJz nCIxUTQoMPQ5SIZbtHBuB7l sAAXbAT5fnvkcOJdvWYbbNR FtxRB1TGEghWUdN6UvOQWoY MgcVGVxcnq3YhTuFg0tcLMq eTcyMFxwYXJkXHBsYWluXGZ zMjAgTUVESUNBTCBERVZJQ0 JcYEHJLi2NUWKCDMETLnUuI D2IXyYVFKYBNGluHDNESOPb JXZDBL9LTRf0XBsiqyOzJTY bCVWyCK6ZCChYJVwdUTJELW ZSGXPTEuSZZw7ISjJXAMYZU ElGSUNBVElPTiBPTkxZIChQ LTSBJ1NlG2KVFMyFC2MKBJO DH9ZBFFHTIQ5XQTszLFGekY OcoCfpkwXbYEycu0ZuTSokF RPvMU9mxVopUFBiOQ3lGZRf U7zwqN6lslw5NgFjROCvUdN 5XCNzqwN6Bvx9JEYlJGibc8 tff0JuRTVmARf6fMlzLxEjH CYdr2odqeVdFwEdKUQvPLZp GRAozPRzB039v6cly1xmdeX hxZP9KILqGLV1XZllzzUgls H5HWiioDFvRdP0SHbuizYxE UnumsXfkiUeYba1TWFmU940 HYL4kNrlc4zmYIY6IVJnEDZ qMyToFt2blVRfT499EREcCG SECVAeuDg2DPJhfcLqdyFyc XKDk201H899z3ftPSBolsTa mEdCjyrwv4ehS017DTUmpFO evdYhRpCmPDGgqJMvaCC5TO CmQF1vgobbKIcgUKroQZGgh wC8DGDplUPrL4PvRPVyEE9b jvpvHHN8LYcrQIDmWHL6GiE dXKQhi9Arlng5JaZsvh8gss 87VBO4b2OxtJrhILF5TJS1C zVePp6duPDpPEEvBT2bMxAt yXGzBPDedh90sFnsYGycAHE 4QNDlxdPnf0Btr1kqPoViqx YfL1xoT6JyOJQqPXHoGWAoT oJhliUip2Zip9CcaYIemLl7 t5kgJQLoCJMjxVghn0byRFS 3EXExwZNoP4dyjO3nENQqXC 8yvmwqv2ogZWqeNNtzHKYkx EW0dqK6DADjeIChD5HjuY5z XWUuPNypLGYubgx1DxHbIk5 vdGVyeTcyMFxzYmtwYWdlXH BnbmNvbnRccGduZGVjXHBsY WluXHBsYWluXGYwXGZzMjRc cWxcbGFuZzEwMzNcaGljaFx rBPtwWfHhPCOvIYuiQ6stDs CtHgNpPaw9GIGxiRNdTXFmF sd9WNTclBNoTQKWlGiokM9m SKOntSgnmD7inDJ4NPPpktX xxPOClJ9uDQKAyG1nMdO0MX JjKnp9CGV2HbDfeXTzcG1= CPT Code(s) (test code x0iriIGuQGLjfIW7VuWgNYI = 3357) bh7prv5EiaNEigSVvAIpbdL NcyaUqua07fPC5uX06FL6nY INaPmM0MFNjvhY8Csf3MYMp IXOzvEFkG775t5vkc7yxirI kcHF8hEfeOHOcggjyQaE4XT gsJRTosfuxBTs4XGtrMMOic OP4OJVkmVOiE9VfBVKfIO1d hzb6OOI2BHysZKRnFcF2UFG asHKxYYLceIcuWKsza667QX P7LeAqRCBnyeOtoMyyyJ9eR jXwEGK0DDNcUUxnOXO7 CLINICAL HISTORY (test c8yqjYQdATRjfCT1RmAgWWX code = 3356) fj3sga5JovPGjlLQiXQcztP WibdKcpa08bUU0dV53UD1qS GDfDaQ7NNJpsmQ3Fxh8XKJo HDHecYAiD350i3dhj6fictB saLI6fNkpAQZmjnzsBgD5MC poBMEqdqzpZHc2BYqmBWYmw PF1RFCjkBNnY4MrTEXpGD5k xbf1OJQ5OJqcHBIaHaK2ATL avSLuTKNrzLwaUVgxz802QE S7FnLbZTNbejEwqVljrA4hF dGrJGKWeMZyeOpgfUF7NXCo cn0= GROSS DESCRIPTION r6yznGXpRPZsaIVJUXOvJ8g (test code = xhiGjLIWhzJMmL7XfjcrsZT [id number]) iqHW5vZS5naFkcyVOqbVNbQ K8GROWeWxGmKGHlgHJjkvAz XrUlCZGeoTMfvDE5XLPrOW6 broamBLscZDeiTNOisvF0EM SdbSZkC1MqGZUbRQ3odhmfH WE5NGovnE8vunVOCgmlWw9g dHRibHtcZjFcZmNoYXJzZXQ iGLNwoQwyMKAnFGj5yX1NCh kgDJN8FANKMsyyAPLcKG0Yd 2hhZCUsyLKhFZS0YKwztVAx RONmCTTiNPx2AOLwKWnqxJW lZY8fgBrmSjgarPeww0FxnF BcXGlkIDUxMDAyIFxcZGIgI L4KCrYfZOOcUwF6FtVeBFy8 VSk7KS2YXoDpBUNwYCH6AzI 5MMPgMEy0YMamCJ7CGOLsJb o2GNxoFrC8WXQ6DxEmWMHtX iBcXGYgQXJpYWwgXFxmbCBc ZM1suEreqWIriqVNErRFsPW hVJ75BfkbWHEsLRndKFStD6 9eb0YIe4JlMQ0CCXc6qaVzp vemgY8iPFQabeAvMOjbyWNf Y6dsJdBrQBGIZQKknJWiKEW mcmVzaCBsYWJlbGVkIHdpdG mgaOgeHFLxdWpjpoWvY4N8i tNyDA0gHTEeWOBxR6XrPADr I56nOLGlaZ4mNKYnCC1mTFS pvQXwTW01SpYbymRkHG5mXO Whz95oPaGZjR7jxETbVIWzN ClCLNUqp4vuDM3mPLYzOCQo fC6eYR9iUPA1pdzuOxS8Fmy peRH2OkCcsUHcIfUmL89kPU FVgUSjTHP9lRCfANcyCPfbh 7NebFCfCCO9vXOeXWIzQMAq Eg99HPACKiLYC5VzMBM2LSS xIEggTWVkdHJvbmljLCBJTk OvSESWX4IvLqXnBBZgsq1ro pBwyV61s9xiKPMlHSoiBKEx i4JqUvCxBi1rx3XufJcbzmY oUCVeMUD4Zn8ptVAmEZ3qry 3oniYflym7RgepbG1sPNqru X7iNGHeGNarRGKxW9ZfcY3y LB8DJhweOAZhGFCOL3XaW49 cbGluZSANClxwbGFpblxlcG pwYmCfzGLjGrEwfFrmcV35W WQjiCScLKG2GN6cKOMcakey UWYfKWChQQI1BMdfiQ41yOL cTMQrFAVgmWRnmQ7VREUlGH B6TOlziA65kFReWD8XPCCrR XW3MFSbuPTrCXQ0ER5ktW8F fQ== MICROSCOPIC m2hrxKYzXAJwzMT7FtGbVYC DESCRIPTION (test code uf7pja1KhmDFugKFfFIiqkI = 3371) PjzePdzc28eHJ7cS50MS3zY JYlCbR9CFMegjS4Hao4CIOd VTLawDIaD068j3rrs4uwmaJ qlTT7uNnjIDCikncoQvO8TL hrQVIqgvcrIWe6OXnvEYIwf DJ3ZFYhhOWoN1AtPGCnOT9h wrg3SAQ6VWukBRUlQsP1POP cnSWkVZAinBycQHsof142TN R2TjRpPKSwbeVvrRgkcB4aC oSfRELXl2ZqEYJniRfcBZUm ML8uMAmtVDC1 Gross assessment was [facility] performed at ([facility], code = 2777) Department of Pathology, [address] [place] [id number], Technical component [facility] was performed at ([facility], code = 2778) Department of Pathology, [address] [place] [address], Professional component 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 Explant.Received fresh labeled with the patient's name, medical record number and "implant" is a Medtronic SynchroMed II programmable pump measuring 8.7 x 7.2 x 2.3 cm. The device is inscribed with " 8637-40 SN [id number] [id number] [employer]." A gross photograph is taken. No sections are submitted-gross only.NATTY Torres, PA (ASCP)cmNot applicable. [facility], Department of Pathology, [address] [place] [address], [id number], [facility] of [facility]ology, [address] [place] [address], [facility], Department of Pathology, [address] [place] [address], CDW-Glucose [id number] 11:21:43 Test Item Value Reference Range Interpretation Comments POC-Glucose Meter (test 149 mg/dL 70-110 H : TE STED AT [facility] code = 1538) [address] [place] [address], [facility] 30: Child And Adolescent Therapist/Techni charmaine ID = [id number] for Umeh, [place] Lab Interpretation (test Abnormal code = 04802-3) [facility] [place] [id number] 11:21:43 Test Item Value Reference Range Interpretation Comments POC-Glucose Meter (test 149 mg/dL 70-110 H : TE STED AT [facility] code = 1538) [address] [place] [address], [facility] 30: Child And Adolescent Therapist/Techni charmaine ID = [id number] for Umeh, Akumbu Lab Interpretation (test Abnormal code = 80882-2) [facility] Center[facility]Glucose [id number] 11:21:43 Test Item Value Reference Range Interpretation Comments POC-Glucose Meter (test 149 mg/dL 70-110 H : TE STED AT [facility] code = 1538) [address] [facility], 7[address] 30: Child And Adolescent Therapist/Techni charmaine ID = [id number] for Umeh, Akumbu Lab Interpretation (test Abnormal code = 93500-3) [facility] CenterPOCT-GLUCOSE [id number] 11:21:43 Test Item Value Reference Range Interpretation Comments POC-GLUCOSE METER 149 mg/dL 70-110 H : [facility] (BEAKER) (test code = [facility], 1538) [address]: Child And Adolescent Therapist/Techni charmaine ID = [id number] for Um eh, Akumbu POCT-GLUCOSE [id number] 06:26:12 Test Item Value Reference Range Interpretation Comments POC-GLUCOSE METER 143 mg/dL 70-110 H : [facility] (BEAKER) (test code = [facility], 1538) [address]: Child And Adolescent Therapist/Techni charmaine ID = [id number] for KOBI LUNA BASIC METABOLIC [id number] 06:18:18 Test Item Value Reference Range Interpretation Comments SODIUM (BEAKER) 138 meq/L 136-145 (test code = 381) POTASSIUM 4.2 meq/L 3.5-5.1 (BEAKER) (test code = 379) CHLORIDE (BEAKER) 103 meq/L 98-107 (test code = 382) CO2 (BEAKER) 26 meq/L 22-29 (test code = 355) BLOOD UREA 10 mg/dL 7-21 NITROGEN (BEAKER) (test code = 354) CREATININE 0.66 mg/dL 0.57-1.25 (BEAKER) (test code = 358) GLUCOSE RANDOM 143 mg/dL 70-105 H (BEAKER) (test code = 652) CALCIUM (BEAKER) 8.9 mg/dL 8.4-10.2 (test code = 697) EGFR (BEAKER) 114 Interpretatio n of eGFR (test code = mL/min/1.73 values Stage De scription 1092) sq m Result G1 Brielle l or high >=90 G2 Mildly decreased 60-89 G3a Mildl y to moderately 45-5 9 G3b Moderately to s everely 30-44 G4 Severl y decreased 15-29 G5 Kidney failure <15Reported eGF R is based on the CKD-EPI 2020 equation that d oes not use a race coefficientEsti mated GFR is not as accur ate as Creatinine Stefani funes in predicting glom erular filtration rate . Estimated GFR is not appl icable for dialysis patien ts Child And Adolescent Therapist ID - GUILLAUME [facility] (HEMOGRAM ONLY)2021-12-14 06:01:05 Test Item Value Reference Range Interpretation Comments WHITE BLOOD CELL COUNT (BEAKER) 17.7 K/ L 3.5-10.5 H (test code = 775) RED BLOOD CELL COUNT (BEAKER) 5.84 M/ L 4.63-6.08 (test code = 761) HEMOGLOBIN (BEAKER) (test code = 13.2 GM/DL 13.7-17.5 L 410) HEMATOCRIT (BEAKER) (test code = 45.6 % 40.1-51.0 411) MEAN CORPUSCULAR VOLUME (BEAKER) 78.1 fL 79.0-92.2 L (test code = 753) MEAN CORPUSCULAR HEMOGLOBIN 22.6 pg 25.7-32.2 L (BEAKER) (test code = 751) MEAN CORPUSCULAR HEMOGLOBIN CONC 28.9 GM/DL 32.3-36.5 L (BEAKER) (test code = 752) RED CELL DISTRIBUTION WIDTH 16.8 % 11.6-14.4 H (BEAKER) (test code = 412) PLATELET COUNT (BEAKER) (test 326 K/CU MM 150-450 code = 756) MEAN PLATELET VOLUME (BEAKER) 10.2 fL 9.4-12.4 (test code = 754) NUCLEATED RED BLOOD CELLS 0 /100 WBC 0-0 (BEAKER) (test code = 413) CT, CHEST WITH IV CONTRAST- PE TEST [id number] 19:11:00Unlisted Reason for Exam - Click Yes and Enter Reason Below->YesUnlisted Reason for Exam->postop desat, immobilized at baseline [facility] : 1970 Sex: MFINAL REPORT EXAM/TECHNIQUE: CT angiography of the chest pulmonary embolus protocol. MIPS sequences were acquired. Dose modulation, iterative reconstruction, and/or weight based adjustmentof the mA/kV was utilized to reduce the radiation dose to as low as reasonably achievable. INDICATION: Postoperative desaturation. COMPARISON: None. FINDINGS: Lower Neck: Unremarkable. Parenchyma/Pleura: No focal consolidation. 4 mm left upper lobe perifissural round nodule. No pleural effusion, air, thickening, or calcification. Airways: Unremarkable. Cardiac: Cardiomegaly. Mediastinum/lymph nodes: No lymphadenopathy. Vessels: Exam is limited by motion and mixing artifact. Within these limitations,no central pulmonary embolism is identified. Osseous: No acute osseous process. No suspicious osseous lesion. Upper abdomen: Unremarkable. Impression: 1.Exam is limited by motion and mixing artifact. Wi thin these limitations, no central pulmonary embolism is identified.2.There is a 4 mm left upper lobe nodule. If patient is high risk for malignancy, an optional CT may be acquired in 12 months. Otherwise, no specific follow-up is recommended by Fleischner criteria.3.Cardiomegaly. Signed: Angel Luong MDReport Verified Date/Time: 12/13/2021 19:11:42 Electronically signed by: ANGEL LUONG MD on 0 12/13/2021 07:11 PMRAD, CHEST, 1 VIEW, NON [id number] 18:47:00Reason for exam:->increased oxygen requiremetnsShould this be performed at the bedside?->Yes[facility] : 1970 Sex: MFINAL REPORT TECHNIQUE: Frontal view of the chest. INDICATION: increased oxygen requirements. COMPARISON: Chest CT from the same day. FINDINGS: LINES/TUBES: A ventriculoperitoneal shunt catheter courses over the chest was difficult to visualize in its entirety LUNGS: There is a patchy opacity in the lingula which is better evaluated on the chest CT. PLEURA: No pneumothorax or significantpleural effusion. HEART AND MEDIASTINUM: The cardiac silhouette is normal in size. SOFT TISSUES AND BONES: There are subacute, left lateral sixth rib fracture. IMPRESSION: The atelectasis in the lingula is unchanged. Subacute, healing left lateral sixth rib fracture. Signed: Ameya Ross [facility] Verified Date/Time: 12/13/2021 18:47:45 BASI METABOLIC [id number] 17:53:04 Test Item Value Reference Range Interpretation Comments SODIUM (BEAKER) 138 meq/L 136-145 (test code = 381) POTASSIUM 3.9 meq/L 3.5-5.1 (BEAKER) (test code = 379) CHLORIDE (BEAKER) 101 meq/L 98-107 (test code = 382) CO2 (BEAKER) 28 meq/L 22-29 (test code = 355) BLOOD UREA 11 mg/dL 7-21 NITROGEN (BEAKER) (test code = 354) CREATININE 0.71 mg/dL 0.57-1.25 (BEAKER) (test code = 358) GLUCOSE RANDOM 149 mg/dL 70-105 H (BEAKER) (test code = 652) CALCIUM (BEAKER) 8.9 mg/dL 8.4-10.2 (test code = 697) EGFR (ORALIAAKER) 112 Interpretatio n of eGFR (test code = mL/min/1.73 values Stage De scription 1092) sq m Result G1 Brielle l or high >=90 G2 Mildly decreased 60-89 G3a Mildl y to moderately 45-5 9 G3b Moderately to s everely 30-44 G4 Severl y decreased 15-29 G5 Kidney failure <15Reported eGF R is based on the CKD-EPI 2020 equation that d oes not use a race coefficientEsti mated GFR is not as accur ate as Creatinine Stefani shantel in predicting glom erular filtration rate . Estimated GFR is not appl icable for dialysis patien ts Child And Adolescent Therapist ID - BSBlood gas, [id number] 15:42:21 Test Item Value Reference Range Interpretation Comments pH, Arterial (test code 7.35 7.35-7.45 = 2744-1) pCO2, Arterial (test 52 See_Comment H [Autom ated message] code = 2018-10) The system [employer] generated this result transmit yanely reference range : 35 - 45 mm Hg. The reference range was not used to interpret this result as normal/abnormal . pO2, Arterial (test 58 See_Comment L [Automa yanely message] code = 2703-7) The system [employer] generated this result transmit yanely reference range : 80 - 90 mm Hg. The reference range was not used to interpret this result as normal/abnormal . O2 Sat, Arterial (test 88.6 % 96.0-97.0 L code = 2708-6) HCO3, Arterial (test 28 mmol/L 21-29 code = 1960-4) Base Excess, Arterial 0.9 mmol/L -2.0-3.0 (test code = 1925-7) Patient Temperature 37.0 (test code = 8310-5) FIO2 (test code = 1819) 28 Lab Interpretation Abnormal (test code = 03894-0) [facility] Center[facility], [id number] 15:42:21 Test Item Value Reference Range Interpretation Comments pH, Arterial (test code 7.35 7.35-7.45 = 2744-1) pCO2, Arterial (test 52 See_Comment H [Autom ated message] code = 2018-10) The system [employer] generated this result transmit yanely reference range : 35 - 45 mm Hg. The reference range was not used to interpret this result as normal/abnormal . pO2, Arterial (test 58 See_Comment L [Automa yanely message] code = 2703-7) The system [employer] generated this result transmit yanely reference range : 80 - 90 mm Hg. The reference range was not used to interpret this result as normal/abnormal . O2 Sat, Arterial (test 88.6 % 96.0-97.0 L code = 2708-6) HCO3, Arterial (test 28 mmol/L 21-29 code = 1960-4) Base Excess, Arterial 0.9 mmol/L -2.0-3.0 (test code = 1925-7) Patient Temperature 37.0 (test code = 8310-5) FIO2 (test code = 1819) 28 Lab Interpretation Abnormal (test code = 09059-5) [facility] CenterBlood [facility], [id number] 15:42:21 Test Item Value Reference Range Interpretation Comments pH, Arterial (test code 7.35 7.35-7.45 = 2744-1) pCO2, Arterial (test 52 See_Comment H [Autom ated message] code = 2019-8) The system [facility] generated this result transmit yanely reference range : 35 - 45 mm Hg. The reference range was not used to interpret this result as normal/abnormal . pO2, Arterial (test 58 See_Comment L [Automa yanely message] code = 2703-7) The system [employer] generated this result transmit yanely reference range : 80 - 90 mm Hg. The reference range was not used to interpret this result as normal/abnormal . O2 Sat, Arterial (test 88.6 % 96.0-97.0 L code = 2708-6) HCO3, Arterial (test 28 mmol/L 21-29 code = 1960-4) Base Excess, Arterial 0.9 mmol/L -2.0-3.0 (test code = 1925-7) Patient Temperature 37.0 (test code = 8310-5) FIO2 (test code = 1819) 28 Lab Interpretation Abnormal (test code = 58576-5) [facility] CenterBLOOD GAS, [id number] 15:42:21 Test Item Value Reference Range Interpretation Comments PH ARTERIAL (BEAKER) (test code = 7.35 7.35-7.45 383) PCO2 ARTERIAL (BEAKER) (test code 52 mm Hg 35-45 H = 384) PO2 ARTERIAL (BEAKER) (test code = 58 mm Hg 80-90 L 385) O2 SATURATION ARTERIAL (BEAKER) 88.6 % 96.0-97.0 L (test code = 386) HCO3 ARTERIAL (BEAKER) (test code 28 mmol/L 21-29 = 388) BASE EXCESS ARTERIAL (BEAKER) 0.9 mmol/L -2.0-3.0 (test code = 387) PATIENT TEMPERATURE (BEAKER) (test 37.0 code = 1818) FIO2 (BEAKER) (test code = 1819) 28.0 POCT-GLUCOSE [id number] 13:37:24 Test Item Value Reference Range Interpretation Comments POC-GLUCOSE METER 99 mg/dL 70-110 : TESTED A T [facility] 6720 (BEAKER) (test code = DELVIN Benson [facility], 1538) [address]: Child And Adolescent Therapist/Techni charmaine ID = [id number] for Edilberto Velasquez POCT-GLUCOSE [id number] 09:12:45 Test Item Value Reference Range Interpretation Comments POC-GLUCOSE METER 102 mg/dL 70-110 : TESTED A T [facility] 6720 (BEAKER) (test code = [email or web address] [facility], 1538) [address]: Child And Adolescent Therapist/Techni charmaine ID = [id number] for SAMANTHA MORA Urine [id number] 14:57:02 Test Item Value Reference Range Interpretation Comments Result (test code = See comment 6463-4) DYAN (test code = DYAN) <10,000 col/mL Gram negative kcme02-07,000 col/mL skin flaquito [facility] CenterUrine [id number] 14:57:02 Test Item Value Reference Range Interpretation Comments Result (test code = See comment 6463-4) DYAN (test code = DYAN) <10,000 col/mL Gram negative zbjn28-09,000 col/mL skin flaquito [facility] CenterUrine [id number] 14:57:02 Test Item Value Reference Range Interpretation Comments Result (test code = See comment 6463-4) DYAN (test code = DYAN) <10,000 col/mL Gram negative csci47-59,000 col/mL skin flaquito [facility] CenterUrinalysis w/Microscopic + Reflex to Culture 2021-11-30 14:12:57 Test Item Value Reference Range Interpretation Comments Color, UA (test code Yellow = 5778-6) Clarity, UA (test Hazy code = 5767-9) Specific [place], UA 1.030 1.001-1.035 (test code = 5811-5) pH, UA (test code = 5.5 5.0-8.0 5803-2) Protein, UA (test 30 mg/dL Negative A code = 45699-9) Glucose, UA (test Negative Negative code = 365) Ketones, UA (test Negative Negative code = 2514-8) Bilirubin, UA (test Negative Negative code = 15795-3) Blood, UA (test code Negative Negative = 09829-9) Nitrite, UA (test Negative Negative code = 5802-4) Leukocytes, UA (test Trace Negative A code = 5799-2) Urobilinogen, UA 0.2 mg/dL 0.2-1.0 (test code = 54547-1) RBC, UA (test code = 7 See_Comment [Autom ated 45577-3) message] The system which generated this result transmitted reference range : /HPF. The reference range was not used to interpret this result as normal/abnormal . WBC, UA (test code = 12 See_Comment [Autom ated 5821-4) message] The system which generated this result transmitted reference range : /HPF. The reference range was not used to interpret this result as normal/abnormal . Bacteria, UA (test None Seen code = 75888-4) Mucus (test code = Moderate 8247-9) Squam Epithel, UA 1 See_Comment [Automate d (test code = 59216-9) messag e] The system which generated this result transmitted reference range : /HPF. The reference range was not used to interpret this result as normal/abnormal . Crystals, Urine (test None Seen code = 18878-9) Uric Acid Crystals Few (test code = 1583) Amorphous Crystals Occasional (test code = 58232-1) Specimen Source (test code = 2795) DYAN (test code = DYAN) Child And Adolescent Therapist ID - [auto]Child And Adolescent Therapist ID - [auto]Child And Adolescent Therapist ID - tech Lab Interpretation Abnormal (test code = 25918-7) [facility] CenterUrinalysis w/Microscopic + Reflex to Culture 2021-11-30 14:12:57 Test Item Value Reference Range Interpretation Comments Color, UA (test code Yellow = 5778-6) Clarity, UA (test Hazy code = 5767-9) Specific [place], UA 1.030 1.001-1.035 (test code = 5811-5) pH, UA (test code = 5.5 5.0-8.0 5803-2) Protein, UA (test 30 mg/dL Negative A code = 07018-8) Glucose, UA (test Negative Negative code = 365) Ketones, UA (test Negative Negative code = 2514-8) Bilirubin, UA (test Negative Negative code = 88071-4) Blood, UA (test code Negative Negative = 30482-5) Nitrite, UA (test Negative Negative code = 5802-4) Leukocytes, UA (test Trace Negative A code = 5799-2) Urobilinogen, UA 0.2 mg/dL 0.2-1.0 (test code = 39633-1) RBC, UA (test code = 7 See_Comment [Autom ated 64299-9) message] The system which generated this result transmitted reference range : /HPF. The reference range was not used to interpret this result as normal/abnormal . WBC, UA (test code = 12 See_Comment [Autom ated 5821-4) message] The system which generated this result transmitted reference range : /HPF. The reference range was not used to interpret this result as normal/abnormal . Bacteria, UA (test None Seen code = 70511-9) Mucus (test code = Moderate 8247-9) Squam Epithel, UA 1 See_Comment [Automate d (test code = 86278-3) messag e] The system which generated this result transmitted reference range : /HPF. The reference range was not used to interpret this result as normal/abnormal . Crystals, Urine (test None Seen code = 44428-8) Uric Acid Crystals Few (test code = 1583) Amorphous Crystals Occasional (test code = 62123-9) Specimen Source (test code = 2795) DYAN (test code = DYAN) Child And Adolescent Therapist ID - [auto]Child And Adolescent Therapist ID - [auto]Child And Adolescent Therapist ID - tech Lab Interpretation Abnormal (test code = 70735-0) [facility] CenterUr[facility]ysis w/Microscopic + Reflex to Culture 2021-11-30 14:12:57 Test Item Value Reference Range Interpretation Comments Color, UA (test code Yellow = 5778-6) Clarity, UA (test Hazy code = 5767-9) Specific [place], UA 1.030 1.001-1.035 (test code = 5811-5) pH, UA (test code = 5.5 5.0-8.0 5803-2) Protein, UA (test 30 mg/dL Negative A code = 65386-9) Glucose, UA (test Negative Negative code = 365) Ketones, UA (test Negative Negative code = 2514-8) Bilirubin, UA (test Negative Negative code = 25342-5) Blood, UA (test code Negative Negative = 05603-4) Nitrite, UA (test Negative Negative code = 5802-4) Leukocytes, UA (test Trace Negative A code = 5799-2) Urobilinogen, UA 0.2 mg/dL 0.2-1.0 (test code = 38423-5) RBC, UA (test code = 7 See_Comment [Autom ated 97872-2) message] The system which generated this result transmitted reference range : /HPF. The reference range was not used to interpret this result as normal/abnormal . WBC, UA (test code = 12 See_Comment [Autom ated 5821-4) message] The system which generated this result transmitted reference range : /HPF. The reference range was not used to interpret this result as normal/abnormal . Bacteria, UA (test None Seen code = 25741-4) Mucus (test code = Moderate 8247-9) Squam Epithel, UA 1 See_Comment [Automate d (test code = 09981-8) messag e] The system which generated this result transmitted reference range : /HPF. The reference range was not used to interpret this result as normal/abnormal . Crystals, Urine (test None Seen code = 34718-2) Uric Acid Crystals Few (test code = 1583) Amorphous Crystals Occasional (test code = 30991-1) Specimen Source (test code = 2795) DYAN (test code = DYAN) Child And Adolescent Therapist ID - [auto]Child And Adolescent Therapist ID - [auto]Child And Adolescent Therapist ID - tech Lab Interpretation Abnormal (test code = 52844-1) [facility] CenterURINALYSIS W/ REFLEX URINE [id number] 14:12:57 Test Item Value Reference Range Interpretation Comments COLOR (BEAKER) (test code = 470) Yellow CLARITY (BEAKER) (test code = 469) Hazy SPECIFIC GRAVITY UA (BEAKER) (test 1.030 1.001-1.035 code = 468) PH UA (BEAKER) (test code = 467) 5.5 5.0-8.0 PROTEIN UA (BEAKER) (test code = 30 mg/dL Negative A 464) GLUCOSE UA (BEAKER) (test code = Negative Negative 365) KETONES UA (BEAKER) (test code = Negative Negative 371) BILIRUBIN UA (BEAKER) (test code = Negative Negative 462) BLOOD UA (BEAKER) (test code = Negative Negative 461) NITRITE UA (BEAKER) (test code = Negative Negative 465) LEUKOCYTE ESTERASE UA (BEAKER) Trace Negative A (test code = 466) UROBILINOGEN UA (BEAKER) (test 0.2 mg/dL 0.2-1.0 code = 463) RBC UA (BEAKER) (test code = 519) 7 /HPF WBC UA (BEAKER) (test code = 520) 12 /HPF BACTERIA (BEAKER) (test code = None Seen 517) MUCUS (BEAKER) (test code = 1574) Moderate SQUAMOUS EPITHELIAL (BEAKER) (test 1 /HPF code = 516) CRYSTALS, URINE (BEAKER) (test None Seen code = 1521) URIC ACID CRYSTALS (BEAKER) (test Few code = 1583) AMORPHOUS CRYSTALS (BEAKER) (test Occasional code = 1584) SOURCE(BEAKER) (test code = 8658) Child And Adolescent Therapist ID - [auto]Child And Adolescent Therapist ID - [auto]Child And Adolescent Therapist ID - techBASIC METABOLIC PANEL 2021-11-30 12:39:15 Test Item Value Reference Range Interpretation Comments SODIUM (BEAKER) 140 meq/L 136-145 (test code = 381) POTASSIUM 4.6 meq/L 3.5-5.1 (BEAKER) (test code = 379) CHLORIDE (BEAKER) 105 meq/L 98-107 (test code = 382) CO2 (BEAKER) 26 meq/L 22-29 (test code = 355) BLOOD UREA 9 mg/dL 7-21 NITROGEN (BEAKER) (test code = 354) CREATININE 0.68 mg/dL 0.57-1.25 (BEAKER) (test code = 358) GLUCOSE RANDOM 102 mg/dL 70-105 (BEAKER) (test code = 652) CALCIUM (BEAKER) 9.4 mg/dL 8.4-10.2 (test code = 697) EGFR (BEAKER) 113 Interpretatio n of eGFR (test code = mL/min/1.73 values Stage De scription 1092) sq m Result G1 Brielle l or high >=90 G2 Mildly decreased 60-89 G3a Mildl y to moderately 45-5 9 G3b Moderately to s everely 30-44 G4 Severl y decreased 15-29 G5 Kidney failure <15Reported eGF R is based on the CKD-EPI 2020 equation that d oes not use a race coefficientEsti mated GFR is not as accur ate as Creatinine Stefani shantel in predicting glom erular filtration rate . Estimated GFR is not appl icable for dialysis patien ts Child And Adolescent Therapist ID - GUILLAUME MPT/[id number] 12:37:17 Test Item Value Reference Range Interpretation Comments PROTIME (BEAKER) (test 12.8 seconds 11.9-14.2 code = 759) INR (BEAKER) (test 1.02 See_Comment [Automat ed code = 370) message] The sy stem which generated this result transmitted reference range : <=5.90. The reference range was not used to interpret this result as normal/abnormal . PARTIAL THROMBOPLASTIN 32.3 seconds 22.5-36.0 TIME (BEAKER) (test code = 760) RECOMMENDED COUMADIN/WARFARIN INR THERAPY RANGESSTANDARD DOSE: 2.0 - 3.0 Includes: PROPHYLAXIS for venous thrombosis, systemic embolization; TREATMENT for venous thrombosis and/or pulmonary embolus.HIGH RISK: Target INR is 2.5-3.5 for patients with mechanical heart valves.CBC W/PLT COUNT & AUTO [id number] 12:25:05 Test Item Value Reference Range Interpretation Comments WHITE BLOOD CELL COUNT (BEAKER) 11.0 K/ L 3.5-10.5 H (test code = 775) RED BLOOD CELL COUNT (BEAKER) 6.01 M/ L 4.63-6.08 (test code = 761) HEMOGLOBIN (BEAKER) (test code = 13.7 GM/DL 13.7-17.5 410) HEMATOCRIT (BEAKER) (test code = 47.5 % 40.1-51.0 411) MEAN CORPUSCULAR VOLUME (BEAKER) 79.0 fL 79.0-92.2 (test code = 753) MEAN CORPUSCULAR HEMOGLOBIN 22.8 pg 25.7-32.2 L (BEAKER) (test code = 751) MEAN CORPUSCULAR HEMOGLOBIN CONC 28.8 GM/DL 32.3-36.5 L (BEAKER) (test code = 752) RED CELL DISTRIBUTION WIDTH 17.8 % 11.6-14.4 H (BEAKER) (test code = 412) PLATELET COUNT (BEAKER) (test 332 K/CU MM 150-450 code = 756) MEAN PLATELET VOLUME (BEAKER) 10.0 fL 9.4-12.4 (test code = 754) NUCLEATED RED BLOOD CELLS 0 /100 WBC 0-0 (BEAKER) (test code = 413) NEUTROPHILS RELATIVE PERCENT 62 % (BEAKER) (test code = 429) LYMPHOCYTES RELATIVE PERCENT 27 % (BEAKER) (test code = 430) MONOCYTES RELATIVE PERCENT 7 % (BEAKER) (test code = 431) EOSINOPHILS RELATIVE PERCENT 3 % (BEAKER) (test code = 432) BASOPHILS RELATIVE PERCENT 1 % (BEAKER) (test code = 437) NEUTROPHILS ABSOLUTE COUNT 6.75 K/ L 1.78-5.38 H (BEAKER) (test code = 670) LYMPHOCYTES ABSOLUTE COUNT 2.96 K/ L 1.32-3.57 (BEAKER) (test code = 414) MONOCYTES ABSOLUTE COUNT (BEAKER) 0.75 K/ L 0.30-0.82 (test code = 415) EOSINOPHILS ABSOLUTE COUNT 0.35 K/ L 0.04-0.54 (BEAKER) (test code = 416) BASOPHILS ABSOLUTE COUNT (BEAKER) 0.07 K/ L 0.01-0.08 (test code = 417) IMMATURE GRANULOCYTES-RELATIVE 1 % 0-1 PERCENT (BEAKER) (test code = 2801) RAD, CHEST, 2 [id number] 12:25:00Reason for exam:->spasticity, pre-op [facility] : 1970 Sex: MFINAL REPORT HISTORY: Spasticity, preoperative examination COMPARISON: No prior comparison chest imaging is available FINDINGS: The lungs are clear. No pleural effusions or pneumothorax. The heart shadow is normal in size. The thoracic aorta is mildly tortuous. Degenerative changes are noted in the left acromioclavicular joint. IMPRESSION: No evidence of acute cardiopulmonary disease. Signed: Dasia Martinez MDReport Verified Date/Time: 11/30/2021 12:25:32 [facility]. METABOLIC PANEL ([id number])2021-08-25 13:54:03 Test Item Value Reference Range Interpretation Comments NA (test code = 142 mmol/L 135-145 4796853505) K (test code = 4.8 mmol/L 3.5-5.0 1541993869) CL (test code = 104 mmol/L 98-108 0379493715) CO2 TOTAL (test code = 28 mmol/L 23-31 2142323711) AGAP (test code = 2-16 2128700604) BUN (test code = 14 mg/dL 7-23 7548387328) GLUCOSE (test code = 129 mg/dL 70-110 H 2158998941) CREATININE (test code = 0.52 mg/dL 0.60-1.25 L 0238043274) TOTAL BILI (test code = 0.5 mg/dL 0.1-1.3 9168705436) CALCIUM (test code = 9.1 mg/dL 8.6-10.6 3623414080) T PROTEIN (test code = 8.3 g/dL 6.3-8.2 H 1123500262) ALBUMIN (test code = 4.4 g/dL 3.5-5.0 7502391070) ALK PHOS (test code = 116 U/L 34-122 8700051161) ALTv (test code = 52 U/L 5-50 H 1742-6) AST(SGOT) (test code = 34 U/L 13-40 7457911148) eGFR (test code = mL/min/1.73m2 2761534384) DYAN (test code = DYAN) Association of [...] tests). Lab Interpretation Abnormal (test code = 55507-2) [facility] 13:[facility]43 Test Item Value Reference Range Interpretation Comments LIPASE (test code = 7678957417) 127 U/L 0-220 Lab Interpretation (test code = Normal 71364-2) [facility] 21 + LACTIC [id number] 13:50:06 Test Item Value Reference Range Interpretation Comments PH (test code = 7.32-7.42 3077954956) PCO2 TODD (test code = See_Comment [Auto mated 0592462461) message] The sy stem which generated this result transmitted reference range : 41 - 51 mmHg. The reference range was not used to interpret this result as normal/abnormal . PO2 TODD (test code = See_Comment HH [Autom ated 7556376195) message] The sy stem which generated this result transmitted reference range : 25 - 40 mmHg. The reference range was not used to interpret this result as normal/abnormal . HCO3 TODD (test code = See_Comment [Auto mated 5776649392) message] The sy stem which generated this result transmitted reference range : 24 - 28 mEq/L. The reference range was not used to interpret this result as normal/abnormal . AC VBE(BEAKER) (test mEq/L code = 7772409820) THB TODD (test code = 15.1 g/dL 13.5-18.0 6659675181) %O2HB TODD (test code = 90.2 % 52.0-63.0 H 0623473559) %COHB TODD (test code = 0.7 % 0.0-1.5 3141456420) %METHB TODD (test code = 0.3 % 0.4-1.5 L 9663287678) VOL%O2 TODD (test code = 19.1 % 6.0-12.0 H 7025681765) NA (test code = 141 mmol/L 135-145 3604192183) K+ (test code = 4.9 mmol/L 3.5-5.0 3655926474) AC CA IONZ (test code = 4.80 mg/dL 4.50-5.30 9262350941) GLUCOSE (test code = 120 mg/dL 70-110 H 9533283095) LACTIC ACID (test code 1.68 mmol/L 0.50-2.20 = 2622623032) Lab Interpretation Abnormal (test code = 82155-7) [facility] WITH [id number] 13:39:19 Test Item Value Reference Range Interpretation Comments WBC (test code = See_Comment H [Automated 6690-2) message] The system which generated this result transmit yanely reference range : 4.20 - 10.70 10*3/?L. The reference range was not used to interpret this result as normal/abnormal . RBC (test code = See_Comment H [Automated 789-8) message] The system which generated this result transmit yanely reference range : 4.26 - 5.52 10*6/?L. The reference range was not used to interpret this result as normal/abnormal . HGB (test code = 15.0 g/dL 12.2-16.4 718-7) HCT (test code = 49.1 % 38.4-49.3 4544-3) MCV (test code = 75.4 fL 81.7-95.6 L 787-2) MCH (test code = 23.0 pg 26.1-32.7 L 785-6) MCHC (test code = 30.5 g/dL 31.2-35.0 L 786-4) RDW-SD (test code = 44.9 fL 38.5-51.6 48414-3) RDW-CV (test code = 18.4 % 12.1-15.4 H 788-0) PLT (test code = See_Comment H [Automated 777-3) message] The system which generated this result transmit yanely reference range : 150 - 328 10*3/ ?L. The reference range was not u sed to interpret th is result as normal/abnormal . MPV (test code = 9.6 fL 9.8-13.0 L 95054-4) NRBC/100 WBC (test See_Comment [Automat ed code = 1727842175) message] The system which generated this result transmit yanely reference range : 0.0 - 10.0 /100 WBCs. The reference range was not used to interpret this result as normal/abnormal . NRBC x10^3 (test code <0.01 See_Comment [Auto mated = 1953959628) message] The system which generated this result transmit yanely reference range : 10*3/?L. The reference range was not used to interpret this result as normal/abnormal . GRAN MAT (NEUT) % 74.4 % (test code = 770-8) IMM GRAN % (test code 1.40 % = 3404123941) LYMPH % (test code = 17.5 % 736-9) MONO % (test code = 5.8 % 5905-5) EOS % (test code = 0.6 % 713-8) BASO % (test code = 0.3 % 706-2) GRAN MAT x10^3(ANC) 12.17 10*3/uL 1.99-6.95 H (test code = 9523938374) IMM GRAN x10^3 (test 0.23 10*3/uL 0.00-0.06 H code = 0707793597) LYMPH x10^3 (test code 2.86 10*3/uL 1.09-3.23 = 731-0) MONO x10^3 (test code 0.94 10*3/uL 0.36-1.02 = 742-7) EOS x10^3 (test code = 0.09 10*3/uL 0.06-0.53 711-2) BASO x10^3 (test code 0.05 10*3/uL 0.01-0.09 = 704-7) Lab Interpretation Abnormal (test code = 05444-3) [facility] GLUCOSE (AUTOMATED)2021-08-22 18:24:46 Test Item Value Reference Range Interpretation Comments POCT GLU (test code = 8819096599) 157 mg/dL 70-110 H Lab Interpretation (test code = Abnormal 34186-6) [facility] GLUCOSE (AUTOMATED)2021-08-22 13:58:01 Test Item Value Reference Range Interpretation Comments POCT GLU (test code = 7210076265) 122 mg/dL 70-110 H Lab Interpretation (test code = Abnormal 36635-1) [facility] GLUCOSE (AUTOMATED)2021-08-22 01:13:31 Test Item Value Reference Range Interpretation Comments POCT GLU (test code = [id number]) 189 mg/dL 70-110 H Lab Interpretation (test code = Abnormal 19870-0) [facility] GLUCOSE (AUTOMATED)2021-08-21 22:41:44 Test Item Value Reference Range Interpretation Comments POCT GLU (test code = [id number]) 212 mg/dL 70-110 H Lab Interpretation (test code = Abnormal 22292-0) [facility] [place] [id number] 21:08:29 Test Item Value Reference Range Interpretation Comments SPUTUM CULTURE 2+ Respiratory flaquito: (test code = 622-1) Commensal upper respiratory microorganisms only. Gram stain (test Occasional (Rare) code = 664-3) Epithelial cells DYAN (test code = Bacterial pathogens DAYN) associated with lower respiratory infections were not identified, which include Pseudomonas aeruginosa and Staphylococcus aureus (MRSA or MSSA). [facility]MINAL [id number] 20:51:42 Test Item Value Reference Range Interpretation Comments NT-proBNP (test code 112 pg/mL See_Comment [Autom ated = 5935725715) message] The system which generated this result transmitted reference range : <=125. The reference range was not used to interpret this result as normal/abnormal . DYAN (test code = DYAN) Biotin has been reported to cause a negative bias, interpret results relative to patient's use of biotin. Lab Interpretation Normal (test code = 80466-0) [facility] GLUCOSE (AUTOMATED)2021-08-21 18:09:39 Test Item Value Reference Range Interpretation Comments POCT GLU (test code = 4818581422) 153 mg/dL 70-110 H Lab Interpretation (test code = Abnormal 33559-8) [facility] GLUCOSE (AUTOMATED)2021-08-21 15:09:32 Test Item Value Reference Range Interpretation Comments POCT GLU (test code = 0275740184) 147 mg/dL 70-110 H Lab Interpretation (test code = Abnormal 91217-6) [facility] [place] MET[facility]OLIC PANEL (NA, K, CL, CO2, GLUCOSE, BUN, CREATININE, CA)2021-08-21 10:25:30 Test Item Value Reference Range Interpretation Comments NA (test code = 140 mmol/L 135-145 6803296730) K (test code = 4.8 mmol/L 3.5-5.0 2401080342) CL (test code = 102 mmol/L 98-108 4641823077) CO2 TOTAL (test code = 31 mmol/L 23-31 1428361288) AGAP (test code = 2-16 2531160150) BUN (test code = 13 mg/dL 7-23 2529034793) GLUCOSE (test code = 188 mg/dL 70-110 H 2536447257) CREATININE (test code = 0.49 mg/dL 0.60-1.25 L 9790216349) CALCIUM (test code = 9.1 mg/dL 8.6-10.6 7679576004) eGFR (test code = mL/min/1.73m2 5603741492) DYAN (test code = DYAN) Association of [...] tests). Lab Interpretation Abnormal (test code = 83683-4) [facility] WITH [id number] 10:18:23 Test Item Value Reference Range Interpretation Comments WBC (test code = See_Comment H [Automated 0090-2) message] The system which generated this result transmit yanely reference range : 4.20 - 10.70 10*3/?L. The reference range was not used to interpret this result as normal/abnormal . RBC (test code = See_Comment H [Automated 049-8) message] The system which generated this result transmit yanely reference range : 4.26 - 5.52 10*6/?L. The reference range was not used to interpret this result as normal/abnormal . HGB (test code = 13.0 g/dL 12.2-16.4 718-7) HCT (test code = 44.2 % 38.4-49.3 4544-3) MCV (test code = 76.7 fL 81.7-95.6 L 787-2) MCH (test code = 22.6 pg 26.1-32.7 L 785-6) MCHC (test code = 29.4 g/dL 31.2-35.0 L 786-4) RDW-SD (test code = 46.3 fL 38.5-51.6 46261-2) RDW-CV (test code = 17.5 % 12.1-15.4 H 788-0) PLT (test code = See_Comment H [Automated 777-3) message] The system which generated this result transmit yanely reference range : 150 - 328 10*3/ ?L. The reference range was not u sed to interpret th is result as normal/abnormal . MPV (test code = 9.4 fL 9.8-13.0 L 66813-2) NRBC/100 WBC (test See_Comment [Automat ed code = 5871421008) message] The system which generated this result transmit yanely reference range : 0.0 - 10.0 /100 WBCs. The reference range was not used to interpret this result as normal/abnormal . NRBC x10^3 (test code <0.01 See_Comment [Auto mated = 9200380895) message] The system which generated this result transmit yanely reference range : 10*3/?L. The reference range was not used to interpret this result as normal/abnormal . GRAN MAT (NEUT) % 86.1 % (test code = 770-8) IMM GRAN % (test code 1.00 % = 4699499893) LYMPH % (test code = 9.8 % 736-9) MONO % (test code = 3.0 % 5905-5) EOS % (test code = 0.0 % 713-8) BASO % (test code = 0.1 % 706-2) GRAN MAT x10^3(ANC) 15.95 10*3/uL 1.99-6.95 H (test code = 0908810370) IMM GRAN x10^3 (test 0.19 10*3/uL 0.00-0.06 H code = 1479076702) LYMPH x10^3 (test code 1.81 10*3/uL 1.09-3.23 = 731-0) MONO x10^3 (test code 0.56 10*3/uL 0.36-1.02 = 742-7) EOS x10^3 (test code = <0.03 0.06-0.53 L 711-2) BASO x10^3 (test code <0.03 0.01-0.09 = 704-7) SERGEI CELLS (test code 2+ See_Comment A [Auto mated = 4433-6) message] The system which generated this result transmit yanely reference range : (none). The reference range was not used to interpret this result as normal/abnormal . TOXIC CHANGES (test Present A code = 803-7) Lab Interpretation Abnormal (test code = 60484-4) [facility] GLUCOSE (AUTOMATED)2021-08-21 01:58:23 Test Item Value Reference Range Interpretation Comments POCT GLU (test code = 0088012198) 228 mg/dL 70-110 H Lab Interpretation (test code = Abnormal 21737-5) [facility] GLUCOSE (AUTOMATED)2021-08-20 22:11:58 Test Item Value Reference Range Interpretation Comments POCT GLU (test code = 6802602883) 202 mg/dL 70-110 H Lab Interpretation (test code = Abnormal 62697-1) [facility] GLUCOSE (AUTOMATED)2021-08-20 19:09:00 Test Item Value Reference Range Interpretation Comments POCT GLU (test code = 1944326160) 190 mg/dL 70-110 H Lab Interpretation (test code = Abnormal 59995-6) [facility] GLUCOSE (AUTOMATED)2021-08-20 13:40:23 Test Item Value Reference Range Interpretation Comments POCT GLU (test code = 4692340475) 139 mg/dL 70-110 H Lab Interpretation (test code = Abnormal 16989-8) [facility] GLUCOSE (AUTOMATED)2021-08-20 01:42:48 Test Item Value Reference Range Interpretation Comments POCT GLU (test code = 8739719946) 221 mg/dL 70-110 H Lab Interpretation (test code = Abnormal 81790-6) [facility] GLUCOSE (AUTOMATED)2021-08-19 22:05:17 Test Item Value Reference Range Interpretation Comments POCT GLU (test code = 9907851194) 218 mg/dL 70-110 H Lab Interpretation (test code = Abnormal 83940-8) [facility] GLUCOSE (AUTOMATED)2021-08-19 17:31:39 Test Item Value Reference Range Interpretation Comments POCT GLU (test code = 8813341003) 176 mg/dL 70-110 H Lab Interpretation (test code = Abnormal 25719-2) [facility] GLUCOSE (AUTOMATED)2021-08-19 14:23:00 Test Item Value Reference Range Interpretation Comments POCT GLU (test code = 6029864198) 219 mg/dL 70-110 H Lab Interpretation (test code = Abnormal 21134-5) [facility] WITH [id number] 10:07:54 Test Item Value Reference Range Interpretation Comments WBC (test code = See_Comment H [Automated 6690-2) message] The system which generated this result transmit yanely reference range : 4.20 - 10.70 10*3/?L. The reference range was not used to interpret this result as normal/abnormal . RBC (test code = See_Comment [Automated 789-8) message] The system which generated this result transmit yanely reference range : 4.26 - 5.52 10*6/?L. The reference range was not used to interpret this result as normal/abnormal . HGB (test code = 12.4 g/dL 12.2-16.4 718-7) HCT (test code = 41.2 % 38.4-49.3 4544-3) MCV (test code = 75.2 fL 81.7-95.6 L 787-2) MCH (test code = 22.6 pg 26.1-32.7 L 785-6) MCHC (test code = 30.1 g/dL 31.2-35.0 L 786-4) RDW-SD (test code = 44.0 fL 38.5-51.6 72317-1) RDW-CV (test code = 16.3 % 12.1-15.4 H 788-0) PLT (test code = See_Comment H [Automated 777-3) message] The system which generated this result transmit yanely reference range : 150 - 328 10*3/ ?L. The reference range was not u sed to interpret th is result as normal/abnormal . MPV (test code = 9.2 fL 9.8-13.0 L 54928-5) NRBC/100 WBC (test See_Comment [Automat ed code = 2010863102) message] The system which generated this result transmit yanely reference range : 0.0 - 10.0 /100 WBCs. The reference range was not used to interpret this result as normal/abnormal . NRBC x10^3 (test code <0.01 See_Comment [Auto mated = 8043816495) message] The system which generated this result transmit yanely reference range : 10*3/?L. The reference range was not used to interpret this result as normal/abnormal . GRAN MAT (NEUT) % 87.5 % (test code = 770-8) IMM GRAN % (test code 2.00 % = 1965067030) LYMPH % (test code = 8.9 % 736-9) MONO % (test code = 1.4 % 5905-5) EOS % (test code = 0.0 % 713-8) BASO % (test code = 0.2 % 706-2) GRAN MAT x10^3(ANC) 15.19 10*3/uL 1.99-6.95 H (test code = 0270698711) IMM GRAN x10^3 (test 0.35 10*3/uL 0.00-0.06 H code = 9245011430) LYMPH x10^3 (test code 1.54 10*3/uL 1.09-3.23 = 731-0) MONO x10^3 (test code 0.25 10*3/uL 0.36-1.02 L = 742-7) EOS x10^3 (test code = <0.03 0.06-0.53 L 711-2) BASO x10^3 (test code 0.04 10*3/uL 0.01-0.09 = 704-7) TOXIC CHANGES (test Present A code = 803-7) GIANT PLATELETS (test Present See_Comment A [Auto mated code = 5908-9) message] The system which generated this result transmit yanely reference range : (none). The reference range was not used to interpret this result as normal/abnormal . Lab Interpretation Abnormal (test code = 44876-8) [facility] METABOLIC PANEL (NA, K, CL, CO2, GLUCOSE, BUN, CREATININE, CA)2021-08-19 10:01:04 Test Item Value Reference Range Interpretation Comments NA (test code = 137 mmol/L 135-145 9526586049) K (test code = 4.3 mmol/L 3.5-5.0 0425989542) CL (test code = 101 mmol/L 98-108 7580477461) CO2 TOTAL (test code = 31 mmol/L 23-31 3711856298) AGAP (test code = 2-16 6226693369) BUN (test code = 9 mg/dL 7-23 0273234231) GLUCOSE (test code = 202 mg/dL 70-110 H 1923600636) CREATININE (test code = 0.46 mg/dL 0.60-1.25 L 4816264343) CALCIUM (test code = 8.7 mg/dL 8.6-10.6 0243908659) eGFR (test code = mL/min/1.73m2 6850698054) DYAN (test code = DYAN) Association of [...] tests). Lab Interpretation Abnormal (test code = 69410-4) [facility] GLUCOSE (AUTOMATED)2021-08-19 04:12:32 Test Item Value Reference Range Interpretation Comments POCT GLU (test code = 8060672812) 201 mg/dL 70-110 H Lab Interpretation (test code = Abnormal 94099-6) [facility] GLUCOSE (AUTOMATED)2021-08-19 01:13:04 Test Item Value Reference Range Interpretation Comments POCT GLU (test code = 0887268778) 319 mg/dL 70-110 H Lab Interpretation (test code = Abnormal 58911-0) [facility] GLUCOSE (AUTOMATED)2021-08-18 22:24:04 Test Item Value Reference Range Interpretation Comments POCT GLU (test code = 9578702146) 241 mg/dL 70-110 H Lab Interpretation (test code = Abnormal 28917-5) [facility] GLUCOSE (AUTOMATED)2021-08-18 13:38:10 Test Item Value Reference Range Interpretation Comments POCT GLU (test code = 3965627998) 106 mg/dL 70-110 Lab Interpretation (test code = Normal 63960-7) [facility] [id number] 12:01:11 Test Item Value Reference Range Interpretation Comments Blood Culture-Aerobic No organisms No growth Previo us (test code = 26070-1) isolated prelim inary verified result was Culture In Progress on 08/13/2021 at 10 02 CDTPrevious preliminary verified result was No growth a t 24 hours on 08/14/2021 at 07 02 CDTPrevious preliminary verified result was No growth a t 48 hours on 08/15/2021 at 07 01 CDTPrevious preliminary verified result was No growth a t 72 hours on 08/16/2021 at 07 02 CDT Blood No organisms No growth Previous Culture-Anaerobic isolated preliminar y (test code = 07780-4) verifi ed result was Culture In Progress on 08/13/2021 at 10 02 CDTPrevious preliminary verified result was No growth a t 24 hours on 08/14/2021 at 07 02 CDTPrevious preliminary verified result was No growth a t 48 hours on 08/15/2021 at 07 01 CDTPrevious preliminary verified result was No growth a t 72 hours on 08/16/2021 at 07 02 CDT Lab Interpretation Normal (test code = 41662-6) [facility] CULTURE [id number] 12:01:11 Test Item Value Reference Range Interpretation Comments Blood Culture-Aerobic No organisms No growth Previo us (test code = 76927-2) isolated prelim inary verified result was Culture In Progress on 08/13/2021 at 10 02 CDTPrevious preliminary verified result was No growth a t 24 hours on 08/14/2021 at 07 02 CDTPrevious preliminary verified result was No growth a t 48 hours on 08/15/2021 at 07 01 CDTPrevious preliminary verified result was No growth a t 72 hours on 08/16/2021 at 07 02 CDT Blood No organisms No growth Previous Culture-Anaerobic isolated preliminar y (test code = 57867-2) verifi ed result was Culture In Progress on 08/13/2021 at 10 02 CDTPrevious preliminary verified result was No growth a t 24 hours on 08/14/2021 at 07 02 CDTPrevious preliminary verified result was No growth a t 48 hours on 08/15/2021 at 07 01 CDTPrevious preliminary verified result was No growth a t 72 hours on 08/16/2021 at 07 02 CDT Lab Interpretation Normal (test code = 21324-7) [facility] GLUCOSE (AUTOMATED)2021-08-17 22:25:31 Test Item Value Reference Range Interpretation Comments POCT GLU (test code = 6556760288) 133 mg/dL 70-110 H Lab Interpretation (test code = Abnormal 14614-5) [facility] GLUCOSE (AUTOMATED)2021-08-17 16:42:32 Test Item Value Reference Range Interpretation Comments POCT GLU (test code = 2940270128) 134 mg/dL 70-110 H Lab Interpretation (test code = Abnormal 87257-0) [facility] GLUCOSE (AUTOMATED)2021-08-17 13:15:19 Test Item Value Reference Range Interpretation Comments POCT GLU (test code = 4551138572) 113 mg/dL 70-110 H Lab Interpretation (test code = Abnormal 60542-2) [facility] WITH [id number] 11:10:34 Test Item Value Reference Range Interpretation Comments WBC (test code = See_Comment H [Automated 6690-2) message] The sy stem which generated this result transmitted reference range : 4.20 - 10.70 10*3/?L. The reference range was not used to interpret this result as normal/abnormal . RBC (test code = See_Comment [Automated 789-8) message] The sy stem which generated this result transmitted reference range : 4.26 - 5.52 10*6/?L. The reference range was not used to interpret this result as normal/abnormal . HGB (test code = 11.5 g/dL 12.2-16.4 L 718-7) HCT (test code = 38.9 % 38.4-49.3 4544-3) MCV (test code = 75.8 fL 81.7-95.6 L 787-2) MCH (test code = 22.4 pg 26.1-32.7 L 785-6) MCHC (test code = 29.6 g/dL 31.2-35.0 L 786-4) RDW-SD (test code = 44.9 fL 38.5-51.6 31631-0) RDW-CV (test code = 16.4 % 12.1-15.4 H 788-0) PLT (test code = See_Comment H [Automated 777-3) message] The sy stem which generated this result transmitted reference range : 150 - 328 10*3/ ?L. The reference r matthieu was not used to interpret this result as normal/abnormal . MPV (test code = 9.0 fL 9.8-13.0 L 45211-3) NRBC/100 WBC (test See_Comment [Automat ed code = 4693012613) message] The system which generated this result transmitted reference range : 0.0 - 10.0 /100 WBCs. The refer ence range was not u sed to interpret th is result as normal/abnormal . NRBC x10^3 (test code <0.01 See_Comment [Auto mated = 2161060386) message] The s ystem which generated this result transmitted reference range : 10*3/?L. The reference range was not used to interpret this result as normal/abnormal . GRAN MAT (NEUT) % 63.0 % (test code = 770-8) IMM GRAN % (test code 3.10 % = 0622820793) LYMPH % (test code = 20.3 % 736-9) MONO % (test code = 9.9 % 5905-5) EOS % (test code = 3.2 % 713-8) BASO % (test code = 0.5 % 706-2) GRAN MAT x10^3(ANC) 8.24 10*3/uL 1.99-6.95 H (test code = 3397340620) IMM GRAN x10^3 (test 0.40 10*3/uL 0.00-0.06 H code = 8256893214) LYMPH x10^3 (test code 2.66 10*3/uL 1.09-3.23 = 731-0) MONO x10^3 (test code 1.30 10*3/uL 0.36-1.02 H = 742-7) EOS x10^3 (test code = 0.42 10*3/uL 0.06-0.53 711-2) BASO x10^3 (test code 0.07 10*3/uL 0.01-0.09 = 704-7) Lab Interpretation Abnormal (test code = 98429-5) [facility] METABOLIC PANEL (NA, K, CL, CO2, GLUCOSE, BUN, CREATININE, CA)2021-08-17 10:51:30 Test Item Value Reference Range Interpretation Comments NA (test code = 138 mmol/L 135-145 2122130351) K (test code = 3.5 mmol/L 3.5-5.0 2363255806) CL (test code = 104 mmol/L 98-108 3658557212) CO2 TOTAL (test code = 30 mmol/L 23-31 2925230093) AGAP (test code = 2-16 2986801365) BUN (test code = 6 mg/dL 7-23 L 6776569333) GLUCOSE (test code = 106 mg/dL 70-110 1863392162) CREATININE (test code = 0.57 mg/dL 0.60-1.25 L 9436812067) CALCIUM (test code = 8.0 mg/dL 8.6-10.6 L 6156349316) eGFR (test code = mL/min/1.73m2 3463538856) DYAN (test code = DYAN) Association of [...] tests). Lab Interpretation Abnormal (test code = 50475-8) [facility] GLUCOSE (AUTOMATED)2021-08-17 02:12:29 Test Item Value Reference Range Interpretation Comments POCT GLU (test code = 0847582018) 128 mg/dL 70-110 H Lab Interpretation (test code = Abnormal 31341-0) [facility] GLUCOSE (AUTOMATED)2021-08-16 21:48:26 Test Item Value Reference Range Interpretation Comments POCT GLU (test code = 2196752891) 98 mg/dL 70-110 Lab Interpretation (test code = Normal 90960-1) [facility] [id number] 19:19:08 Test Item Value Reference Range Interpretation Comments SPUTUM CULTURE 1+ Respiratory flaquito: (test code = 622-1) Commensal upper respiratory microorganisms only. Gram stain (test Occasional (Rare) code = 664-3) Epithelial cells DYAN (test code = Bacterial pathogens DYAN) associated with lower respiratory infections were not identified, which include Pseudomonas aeruginosa and Staphylococcus aureus (MRSA or MSSA). [facility] GLUCOSE (AUTOMATED)2021-08-16 16:54:21 Test Item Value Reference Range Interpretation Comments POCT GLU (test code = 2665577635) 178 mg/dL 70-110 H Lab Interpretation (test code = Abnormal 49027-2) [facility]20[facility]-31 15:55:34 Test Item Value Reference Range Interpretation Comments Procalcitonin (test 0.12 ng/mL <0.08 H code = 0300112029) DYAN (test code = DYAN) INTERPRETATION OF PROCALCITONIN RESULTS IN ADULTS >= 18 YEARS OF AGE Initiation and discontinuation of antibiotics on patients with suspected or confirmed Lower Respiratory Tract Infection in Adults >= 18 years of age. + +-------- --------+ + -----+|Procalcitonin |Interpretation ?|Antibiotic ? ? |Considerations ? |ng/mL ? | ?|recommendation | ? + +-------- --------+ + -----+| <0.1 ? | Bacterial ? ? ?| Strongly ? ? ?| ? | ?| infection very | discouraged ? | Overruling: ? | ?| unlikely ? ? ? | ? | ? Clinically unstable ? ? ? + +-------- --------+ + ? High risk for adverse ? ? | <0.25 ?| Bacterial ? ? ?| Discouraged ? | ? outcome ? | ?| infection ? ? ?| ? | ? SEE IMPORTANT NOTE ?| ?| unlikely ? ? ? | ? | ? + +-------- --------+ + -----+| >=0.25 ? ? ? | Bacterial ? ? ?| Encouraged ? ?| ? | ?| infection ? ? ?| ? | ? | ?| likely ? | ? | Consider treatment failure ?+ +------- ---------+ -+ if levels does not decrease | >0.5 ? | Bacterial ? ? ?| Strongly ? ? ?| appropriately ? | ?| infection very | encouraged ? ?| ? | ?| likely ? | ? | ? + +-------- --------+ + -----+ Discontinuation of antibiotics in high-acuity patients with suspected or confirmed sepsis in Adults >= 18 years of age. + +-------- --------+ + -----+|Procalcitonin |Interpretation ?|Antibiotic ? ? |Considerations ? |ng/mL ? | ?|recommendation | ? + +-------- --------+ + -----+| <0.25 ?| Bacterial ? ? ?| Strongly ? ? ?| ? | ?| infection very | discouraged ? | Overruling: ? | ?| unlikely ? ? ? | ? | ? Clinically unstable ? ? ? + +-------- --------+ + ? High risk for adverse ? ? | <0.5 or drop | Bacterial ? ? ?| Discouraged ? | ? outcome ? | >80% from ? ?| infection ? ? ?| ? | ? SEE IMPORTANT NOTE ?| highest PCT ?| unlikely ? ? ? | ? | ? | level ?| ?| ? | ? + +-------- --------+ + -----+| >=0.5 ?| Bacterial ? ? ?| Encouraged ? ?| ? | ?| infection ? ? ?| ? | ? | ?| likely ? | ? | Consider treatment failure ?+ +------- ---------+ -+ if levels does not decrease | >1.0 ? | Bacterial ? ? ?| Strongly ? ? ?| appropriately ? | ?| infection very | encouraged ? ?| ? | ?| likely ? | ? | ? + +-------- --------+ + -----+ Percentage of drop of Procalcitonin calculation for Discontinuation of antibiotics in high-acuity patients with suspected or confirmed sepsis in Adults >= 18 years of age. ? Procalcitonin highest{}-Procalcitonin current{}Delta Procalcitonin = x100% ? Procalcitonin current {} IMPORTANT NOTE: Procalcitonin may be elevated without bacterial infection by physiologic stress related to trauma, huggins, chronic dialysis, metastatic cancer, surgery in the past seven days, malaria, some fungal infections, and some forms of vasculitis. The interpretation algorithm may not apply to patients with immunosuppression (equivalent of >10 mg of prednisone daily), HIV with CD4 cell count < 350 cells/mm3, active malignancy on systemic chemotherapy, solid organ transplant or hematopoietic stem cell transplantation, or hospital acquired pneumonia. Additionally, some clinical trials of procalcitonin have excluded patients with shock requiring vasopressor use, acute respiratory failure requiring mechanical ventilation, or those with known lung abscess/empyema. For further information please refer to:[email or web address] Lab Interpretation Abnormal (test code = 22322-7) [facility] GLUCOSE (AUTOMATED)2021-08-16 12:48:02 Test Item Value Reference Range Interpretation Comments POCT GLU (test code = 1642833231) 108 mg/dL 70-110 Lab Interpretation (test code = Normal 11664-4) [facility] GLUCOSE (AUTOMATED)2021-08-16 01:28:57 Test Item Value Reference Range Interpretation Comments POCT GLU (test code = 8340971165) 129 mg/dL 70-110 H Lab Interpretation (test code = Abnormal 79633-1) [facility] GLUCOSE (AUTOMATED)2021-08-15 21:58:26 Test Item Value Reference Range Interpretation Comments POCT GLU (test code = 0695114369) 116 mg/dL 70-110 H Lab Interpretation (test code = Abnormal 46929-8) [facility] GLUCOSE (AUTOMATED)2021-08-15 16:31:54 Test Item Value Reference Range Interpretation Comments POCT GLU (test code = 4581900288) 145 mg/dL 70-110 H Lab Interpretation (test code = Abnormal 05952-6) [facility] GLUCOSE (AUTOMATED)2021-08-15 12:37:05 Test Item Value Reference Range Interpretation Comments POCT GLU (test code = 5265849583) 123 mg/dL 70-110 H Lab Interpretation (test code = Abnormal 23244-0) [facility] METABOLIC PANEL (NA, K, CL, CO2, GLUCOSE, BUN, CREATININE, CA)2021-08-15 11:03:43 Test Item Value Reference Range Interpretation Comments NA (test code = 139 mmol/L 135-145 8100200306) K (test code = 3.9 mmol/L 3.5-5.0 4662579252) CL (test code = 99 mmol/L 98-108 8371038790) CO2 TOTAL (test code = 34 mmol/L 23-31 H 2999180330) AGAP (test code = 2-16 2743342231) BUN (test code = 8 mg/dL 7-23 3885296334) GLUCOSE (test code = 99 mg/dL 70-110 5071222666) CREATININE (test code = 0.67 mg/dL 0.60-1.25 9888851875) CALCIUM (test code = 8.3 mg/dL 8.6-10.6 L 6006780543) eGFR (test code = mL/min/1.73m2 6230378958) DYAN (test code = DYAN) Association of [...] tests). Lab Interpretation Abnormal (test code = 66912-7) [facility] 11:03:43 Test Item Value Reference Range Interpretation Comments MAGNESIUM (test code = 9950142086) 2.0 mg/dL 1.7-2.4 Lab Interpretation (test code = Normal 00087-9) [facility]AllenCB WITHOUT [id number] 10:45:01 Test Item Value Reference Range Interpretation Comments WBC (test code = 6690-2) See_Comment H [A utomated message] The system [employer] generated this result transmit yanely reference range : 4.20 - 10.70 10*3/?L. The reference range was not used to interpret this result as normal/abnormal . RBC (test code = 789-8) See_Comment [Au tomated message] The system [employer] generated this result transmit yanely reference range : 4.26 - 5.52 10* 6/?L. The reference r matthieu was not used to interpret this result as normal/abnormal . HGB (test code = 718-7) 12.3 g/dL 12.2-16.4 HCT (test code = 4544-3) 41.2 % 38.4-49.3 MCH (test code = 785-6) 22.8 pg 26.1-32.7 L MCV (test code = 787-2) 76.3 fL 81.7-95.6 L MCHC (test code = 786-4) 29.9 g/dL 31.2-35.0 L PLT (test code = 777-3) See_Comment [Au tomated message] The system [employer] generated this result transmit yanely reference range : 150 - 328 10*3/?L. The reference range was not used to interpret this result as normal/abnormal . MPV (test code = 9.3 fL 9.8-13.0 L 99755-4) RDW-CV (test code = 16.7 % 12.1-15.4 H 788-0) RDW-SD (test code = 45.9 fL 38.5-51.6 85514-3) NRBC x10^3 (test code = <0.01 See_Comment [Au tomated message] [id number]) The system [employer] generated this result transmit yanely reference range : 10*3/?L. The reference range was not used to interpret this result as normal/abnormal . NRBC/100 WBC (test code See_Comment [Au tomated message] = 9862732387) The system [facility] generated this result transmit yanely reference range : 0.0 - 10.0 /100 WBC s. The reference r matthieu was not used to interpret this result as normal/abnormal . IPF % (test code = 3916917271) Lab Interpretation (test Abnormal code = 72969-7) [facility] GLUCOSE (AUTOMATED)2021-08-15 02:13:04 Test Item Value Reference Range Interpretation Comments POCT GLU (test code = 5013347570) 108 mg/dL 70-110 Lab Interpretation (test code = Normal 21068-9) [facility] GLUCOSE (AUTOMATED)2021-08-14 21:29:00 Test Item Value Reference Range Interpretation Comments POCT GLU (test code = 1541801893) 103 mg/dL 70-110 Lab Interpretation (test code = Normal 77062-8) [facility] with Qbvkxjihzxav6941-94-83 10:02:33 Test Item Value Reference Range Interpretation Comments WBC (test code = See_Comment H [Automated 6690-2) message] The system which generated this result transmit yanely reference range : 4.20 - 10.70 10*3/?L. The reference range was not used to interpret this result as normal/abnormal . RBC (test code = See_Comment [Automated 789-8) message] The system which generated this result transmit yanely reference range : 4.26 - 5.52 10*6/?L. The reference range was not used to interpret this result as normal/abnormal . HGB (test code = 11.7 g/dL 12.2-16.4 L 718-7) HCT (test code = 38.9 % 38.4-49.3 4544-3) MCV (test code = 76.4 fL 81.7-95.6 L 787-2) MCH (test code = 23.0 pg 26.1-32.7 L 785-6) MCHC (test code = 30.1 g/dL 31.2-35.0 L 786-4) RDW-SD (test code = 46.1 fL 38.5-51.6 25534-0) RDW-CV (test code = 16.7 % 12.1-15.4 H 788-0) PLT (test code = See_Comment [Automated 777-3) message] The system which generated this result transmit yanely reference range : 150 - 328 10*3/ ?L. The reference range was not u sed to interpret th is result as normal/abnormal . MPV (test code = 9.4 fL 9.8-13.0 L 56497-4) NRBC/100 WBC (test See_Comment [Automat ed code = 1412095147) message] The system which generated this result transmit yanely reference range : 0.0 - 10.0 /100 WBCs. The reference range was not used to interpret this result as normal/abnormal . NRBC x10^3 (test code <0.01 See_Comment [Auto mated = 9998699363) message] The system which generated this result transmit yanely reference range : 10*3/?L. The reference range was not used to interpret this result as normal/abnormal . GRAN MAT (NEUT) % 70.8 % (test code = 770-8) IMM GRAN % (test code 0.90 % = 1503065270) LYMPH % (test code = 18.2 % 736-9) MONO % (test code = 7.8 % 5905-5) EOS % (test code = 1.9 % 713-8) BASO % (test code = 0.4 % 706-2) GRAN MAT x10^3(ANC) 11.32 10*3/uL 1.99-6.95 H (test code = 4307449214) IMM GRAN x10^3 (test 0.15 10*3/uL 0.00-0.06 H code = 3902508550) LYMPH x10^3 (test code 2.91 10*3/uL 1.09-3.23 = 731-0) MONO x10^3 (test code 1.24 10*3/uL 0.36-1.02 H = 742-7) EOS x10^3 (test code = 0.30 10*3/uL 0.06-0.53 711-2) BASO x10^3 (test code 0.07 10*3/uL 0.01-0.09 = 704-7) Lab Interpretation Abnormal (test code = 18715-3) [facility] GLUCOSE (AUTOMATED)2021-08-14 05:21:12 Test Item Value Reference Range Interpretation Comments POCT GLU (test code = 8167925637) 104 mg/dL 70-110 Lab Interpretation (test code = Normal 40044-0) [facility] GLUCOSE (AUTOMATED)2021-08-14 02:33:14 Test Item Value Reference Range Interpretation Comments POCT GLU (test code = 3163526028) 105 mg/dL 70-110 Lab Interpretation (test code = Normal 79973-4) [facility] 20:51:09 Test Item Value Reference Range Interpretation Comments HGB A1C (test code = 6.6 % 4.0-5.7 H 4548-4) DYAN (test code = DYAN) Reference RangesNormal: <5.7%Prediabetes: 5.7 - 6.4%Diabetes: > 6.5% Lab Interpretation (test Abnormal code = 71258-8) [facility] GLUCOSE (AUTOMATED)2021-08-13 20:24:32 Test Item Value Reference Range Interpretation Comments POCT GLU (test code = 0712520527) 101 mg/dL 70-110 Lab Interpretation (test code = Normal 10374-2) [facility]21-[facility]13 16:37:49 Test Item Value Reference Range Interpretation Comments POCT GLU (test code = 0371639681) 158 mg/dL 70-110 H Lab Interpretation (test code = Abnormal 97975-4) [facility]. METABOLIC PANEL (28702)2021-08-13 11:45:52 Test Item Value Reference Range Interpretation Comments NA (test code = 139 mmol/L 135-145 6238404717) K (test code = 3.9 mmol/L 3.5-5.0 4512067429) CL (test code = 101 mmol/L 98-108 7036897621) CO2 TOTAL (test code = 28 mmol/L 23-31 0558614929) AGAP (test code = 2-16 5709103378) BUN (test code = 9 mg/dL 7-23 2988653997) GLUCOSE (test code = 166 mg/dL 70-110 H 5666795955) CREATININE (test code = 0.55 mg/dL 0.60-1.25 L 3558064362) TOTAL BILI (test code = 0.5 mg/dL 0.1-1.0 9442132259) CALCIUM (test code = 8.5 mg/dL 8.6-10.6 L 0869315254) T PROTEIN (test code = 7.1 g/dL 6.3-8.2 2823126315) ALBUMIN (test code = 3.7 g/dL 3.5-5.0 0829417845) ALK PHOS (test code = 122 U/L 34-122 6490786220) ALTv (test code = 16 U/L 5-50 1742-6) AST(SGOT) (test code = 22 U/L 13-40 6680207579) eGFR (test code = mL/min/1.73m2 9087002406) DYAN (test code = DYAN) Association of [...] tests). Lab Interpretation Abnormal (test code = 44068-9) [facility] WITH [id number] 11:37:49 Test Item Value Reference Range Interpretation Comments WBC (test code = See_Comment H [Automated 0064-2) message] The system which generated this result transmit yanely reference range : 4.20 - 10.70 10*3/?L. The reference range was not used to interpret this result as normal/abnormal . RBC (test code = See_Comment [Automated 039-8) message] The system which generated this result transmit yanely reference range : 4.26 - 5.52 10*6/?L. The reference range was not used to interpret this result as normal/abnormal . HGB (test code = 12.2 g/dL 12.2-16.4 718-7) HCT (test code = 40.1 % 38.4-49.3 4544-3) MCV (test code = 75.1 fL 81.7-95.6 L 787-2) MCH (test code = 22.8 pg 26.1-32.7 L 785-6) MCHC (test code = 30.4 g/dL 31.2-35.0 L 786-4) RDW-SD (test code = 45.1 fL 38.5-51.6 71829-6) RDW-CV (test code = 16.5 % 12.1-15.4 H 788-0) PLT (test code = See_Comment H [Automated 777-3) message] The system which generated this result transmit yanely reference range : 150 - 328 10*3/ ?L. The reference range was not u sed to interpret th is result as normal/abnormal . MPV (test code = 9.5 fL 9.8-13.0 L 41138-4) NRBC/100 WBC (test See_Comment [Automat ed code = 4692263777) message] The system which generated this result transmit yanely reference range : 0.0 - 10.0 /100 WBCs. The reference range was not used to interpret this result as normal/abnormal . NRBC x10^3 (test code <0.01 See_Comment [Auto mated = 1878721964) message] The system which generated this result transmit yanely reference range : 10*3/?L. The reference range was not used to interpret this result as normal/abnormal . GRAN MAT (NEUT) % 74.4 % (test code = 770-8) IMM GRAN % (test code 1.00 % = 7027866494) LYMPH % (test code = 15.4 % 736-9) MONO % (test code = 7.9 % 5905-5) EOS % (test code = 0.9 % 713-8) BASO % (test code = 0.4 % 706-2) GRAN MAT x10^3(ANC) 11.71 10*3/uL 1.99-6.95 H (test code = 0416802888) IMM GRAN x10^3 (test 0.15 10*3/uL 0.00-0.06 H code = 6180884215) LYMPH x10^3 (test code 2.43 10*3/uL 1.09-3.23 = 731-0) MONO x10^3 (test code 1.25 10*3/uL 0.36-1.02 H = 742-7) EOS x10^3 (test code = 0.14 10*3/uL 0.06-0.53 711-2) BASO x10^3 (test code 0.06 10*3/uL 0.01-0.09 = 704-7) Lab Interpretation Abnormal (test code = 57974-2) [facility] [id number] 17:15:20 Test Item Value Reference Range Interpretation Comments APTT Patient (test See_Comment [Automat ed code = 3173-2) message] The system which generated this result transmitted reference range : 23 - 38 Seconds . The reference range was not used to interpr et this result as normal/abnormal . DYAN (test code = DYAN) The [facility] patient population mean normal value for aPTT is 30 seconds. Lab Interpretation Normal (test code = 61827-0) [facility]AllenPROTHROMBIN [facility] / [id number] 17:13:18 Test Item Value Reference Range Interpretation [...] tions. Lab Interpretation (test Normal code = 58337-7) [facility]AllenTR[facility] [id number] 16:59:37 Test Item Value Reference Interpretation Comments Range TROPONIN I (test 0.003 ng/mL See_Comment [Automated code = 9305827581) message] The system which generated this result [...] biotin. Lab Interpretation Normal (test code = 96215-0) [facility]Allen[facility]-TERMIN[facility] [id number]-[id number] 16:56:14 Test Item Value Reference Range Interpretation Comments NT-proBNP (test code 37 pg/mL See_Comment [Autom ated = 9756613058) message] The system which generated this result transmitted reference range : <=125. The reference range was not used to interpret this result as normal/abnormal . DYAN (test code = DYAN) Biotin has been reported to cause a negative bias, interpret results relative to patient's use of biotin. Lab Interpretation Normal (test code = 01337-4) [facility]OL2022-[facility]-23 16:51:35 Test Item Value Reference Range Interpretation Comments ALCOHOL (test code = <10 mg/dL 6884981899) DYAN (test code = DYAN) <10 Arvvxsxg34-584 Toxic>100 Depression of INDUSTRIAL PARAMEDIC>400 Fatalities Reported [facility] METABOLIC PANEL (71030)2021-06-08 16:47:52 Test Item Value Reference Range Interpretation Comments NA (test code = 143 mmol/L 135-145 3482119012) K (test code = 4.6 mmol/L 3.5-5.0 7901914020) CL (test code = 103 mmol/L 98-108 4870469822) CO2 TOTAL (test code = 32 mmol/L 23-31 H 9072442517) AGAP (test code = 2-16 7694120172) BUN (test code = 10 mg/dL 7-23 0502205492) GLUCOSE (test code = 134 mg/dL 70-110 H 6152364477) CREATININE (test code = 0.62 mg/dL 0.60-1.25 6075946039) TOTAL BILI (test code = 0.5 mg/dL 0.1-1.2 2734117543) CALCIUM (test code = 8.4 mg/dL 8.6-10.6 L 3818464039) T PROTEIN (test code = 7.4 g/dL 6.3-8.2 4973378290) ALBUMIN (test code = 4.1 g/dL 3.5-5.0 9004768063) ALK PHOS (test code = 120 U/L 34-122 7434249890) ALTv (test code = 30 U/L 5-50 1742-6) AST(SGOT) (test code = 31 U/L 13-40 0276566080) eGFR (test code = mL/min/1.73m2 5429746585) DYAN (test code = DYAN) Association of [...] tests). Lab Interpretation Abnormal (test code = 37410-1) [facility] WITH [id number] 16:37:14 Test Item Value Reference Range Interpretation Comments WBC (test code = See_Comment H [Automated 3648-2) message] The sy stem which generated this result transmitted reference range : 4.20 - 10.70 10*3/?L. The reference range was not used to interpret this result as normal/abnormal . RBC (test code = See_Comment H [Automated 129-8) message] The sy stem which generated this [...] RDW-SD (test code = 49.5 fL 38.5-51.6 87561-8) RDW-CV (test code = 17.2 % 12.1-15.4 H 788-0) PLT (test code = See_Comment H [Automated 777-3) message] The sy stem which generated this result transmitted reference range : 150 - 328 10*3/ ?L. The reference r matthieu was not used to interpret this result as normal/abnormal . MPV (test code = 10.5 fL 9.8-13.0 22809-9) NRBC/100 WBC (test See_Comment [Automat ed code = 5295810062) message] The system which generated this result transmitted reference range : 0.0 - 10.0 /100 WBCs. The refer ence range was not u sed to interpret th is result as normal/abnormal . NRBC x10^3 (test code <0.01 See_Comment [Auto mated = 5715062708) message] The s ystem which generated this result transmitted reference range : 10*3/?L. The reference range was not used to interpret this result as normal/abnormal . GRAN MAT (NEUT) % 59.6 % (test code = 770-8) IMM GRAN % (test code 2.00 % = 3855999474) LYMPH % (test code = 24.1 % 736-9) MONO % (test code = 10.1 % 5905-5) EOS % (test code = 3.7 % 713-8) BASO % (test code = 0.5 % 706-2) GRAN MAT x10^3(ANC) 8.00 10*3/uL 1.99-6.95 H (test code = 5088955478) IMM GRAN x10^3 (test 0.27 10*3/uL 0.00-0.06 H code = 7567022673) LYMPH x10^3 (test code 3.23 10*3/uL 1.09-3.23 = 731-0) MONO x10^3 (test code 1.35 10*3/uL 0.36-1.02 H = 742-7) EOS x10^3 (test code = 0.50 10*3/uL 0.06-0.53 711-2) BASO x10^3 (test code 0.07 10*3/uL 0.01-0.09 = 704-7) Lab Interpretation Abnormal (test code = 60208-4) [facility] AND [id number] 20:30:00 Test Item Value Reference Range Interpretation Comments UA Color (test code = Yellow *NA*(09/16/19 UA Color) 3:30 PM) [facility] AND [id number] 20:30:00 Test Item Value Reference Range Interpretation Comments UA Turbidity (test code Slight Cloudy = UA Turbidity) (09/16/19 3:30 PM) [facility] AND [id number] 20:30:00 Test Item Value Reference Range Interpretation Comments UA Spec Grav (test code = UA Spec 1.025 1 Grav) [facility] AND [id number] 20:30:00 Test Item Value Reference Range Interpretation Comments UA pH (test code = UA pH) 5.5 1 5.0-8.0 [facility] AND [id number] 20:30:00 Test Item Value Reference Range Interpretation Comments UA Protein (test code = UA Negative mg/dL Protein) [facility] AND [id number] 20:30:00 Test Item Value Reference Range Interpretation Comments UA Glucose (test code = UA Negative mg/dL Glucose) [facility] AND [id number] 20:30:00 Test Item Value Reference Range Interpretation Comments UA Ketones (test code = UA Negative mg/dL Ketones) [facility] AND [id number] 20:30:00 Test Item Value Reference Range Interpretation Comments UA Bili (test code = Negative *NA*(09/16/19 UA Bili) 3:30 PM) [facility] [id number] 20:30:00 Test Item Value Reference Range Interpretation Comments UA Blood (test code = Negative (09/16/19 3:30 UA Blood) PM) [facility] [id number] 20:30:00 Test Item Value Reference Range Interpretation Comments UA Urobilinogen (test code = UA 0.2 0.1-1.0 Urobilinogen) [facility] [id number] 20:30:00 Test Item Value Reference Range Interpretation Comments UA Nitrite (test code Negative (09/16/19 3:30 = UA Nitrite) PM) [facility] [id number] 20:30:00 Test Item Value Reference Range Interpretation Comments UA Leuk Est (test Negative (09/16/19 3:30 code = UA Leuk Est) PM) [facility] [id number] 20:30:00 Test Item Value Reference Range Interpretation Comments UA Sq Epi (test code = UA Sq Epi) Rare /LPF [facility] [id number] 20:30:00 Test Item Value Reference Range Interpretation Comments UA WBC (test code = UA WBC) 0-2 /HPF [facility] [id number] 20:30:00 Test Item Value Reference Range Interpretation Comments UA RBC (test code = 0-2 /HPF See_Comment [Automa yanely message] The UA RBC) system which ge nerated this result tra nsmitted reference range : <=2. The reference range was not used to interpr et this result as brielle l/abnormal. [facility] [id number] 20:30:00 Test Item Value Reference Range Interpretation Comments UA Bacteria (test code = UA Bacteria) rare [facility] [id number] 20:30:00 Test Item Value Reference Range Interpretation Comments UA Mucus (test code = UA Mucus) Few /LPF [facility] [id number] 17:00:00 Test Item Value Reference Range Interpretation Comments Vitamin D, 25-OH, Total (test code = 19.2 30.0-100.0 Vitamin D, 25-OH, Total) [facility]149[facility]-72 17:00:00 Test Item Value Reference Range Interpretation Comments LH (test code = LH) 3.84 [facility]IpaoadaNIIBIKGFNCDCM7065-32-08 17:00:00 Test Item Value Reference Range Interpretation Comments FSH (test code = FSH) 7.3 [facility]FvfzogxZKNOWXLVJT0971-36-86 17:00:00 Test Item Value Reference Range Interpretation Comments IGF I (test code = IGF I) 128 67-205 [facility] ONLY - INFLUENZA A & B DIRECT ANTIGEN 2019-04-08 20:56:00 Test Item Value Reference Range Interpretation Comments Influenza A (test code = 24704-5) Negative Negative Influenza B (test code = 00864-7) Negative Negative Lab Interpretation (test code = Normal 84293-5) [facility] Xeekjppe1951-[birth year]-38 20:43:43 Impression: Grossly unchanged enlargement of the ventricles. Left frontal approachventricular shunt catheter unchanged in position. 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, h/o [employer] ASSIST[employer] shunt Comparison: 02/03/2019 Technique: Routine unenhanced brain CT. ? Findings: No acute intracranial hemorrhage. Right craniotomy. 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 Left frontalapproach ventricular shunt catheter with distal tip in the region of theforamen of Monro. Grossly unchanged enlargement of the ventricles. Chronicleft basal ganglia infarct. Aneurysm clip right posterior fossa. Redemonstration of ?Dandy-Walker continuum.Left gaze deviation.Visualized paranasal sinuses are essentially clear. 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 Findings:No acute intrac ranial hemorrhage. Right craniotomy. 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 Left frontalapproach ventricular shunt catheter with distal tip in the region of theforamen of Monro. Grossly unchanged enlargement of the ventricles. Chronicleft basal ganglia infarct. Aneurysm clip right posterior fossa.Redemonstration of Dandy-Walker continuum.Left gaze deviation.Visualized paranasal sinuses are essentially clear. IMPRESSIONImpression:Grossly unchanged enlargement of the ventricles. Left frontal approachventricular shunt catheter unchanged in position.[facility]2019-12-04 11:31:00 Test Item Value Reference Range Interpretation Comments Magnesium Lvl (test code = Magnesium 2.2 1.8-2.4 Lvl) [facility]2019-12-04 11:31:00 Test Item Value Reference Range Interpretation Comments Phosphorus (test code = Phosphorus) 3.7 2.5-4.5 [facility]2019-12-04 11:31:00 Test Item Value Reference Range Interpretation Comments ALT (test code = ALT) 62 See_Comment [Auto mated message] The system which ge nerated this result transmit yanely reference range : <=65. The reference range was not used to interpr et this result as brielle l/abnormal. [place]209-12-04 11:31:00 Test Item Value Reference Range Interpretation Comments Albumin Lvl (test code = Albumin Lvl) 3.5 3.5-5.0 [facility]2019-12-04 11:31:00 Test Item Value Reference Range Interpretation Comments Alk Phos (test code = Alk Phos) 81 39-136 [facility]2019-12-04 11:31:00 Test Item Value Reference Range Interpretation Comments Glucose Lvl (test code = Glucose Lvl) 102 70-99 [facility]2019-12-04 11:31:00 Test Item Value Reference Range Interpretation Comments BUN (test code = BUN) 11 7-22 [facility]2019-12-04 11:31:00 Test Item Value Reference Range Interpretation Comments Creatinine Lvl (test code = Creatinine 0.65 0.50-1.40 Lvl) [facility]2019-12-04 11:31:00 Test Item Value Reference Range Interpretation Comments Sodium Lvl (test code = Sodium Lvl) 138 135-145 [facility]2019-12-04 11:31:00 Test Item Value Reference Range Interpretation Comments Potassium Lvl (test code = Potassium 4.0 3.5-5.1 Lvl) [place] 454209-12-04 11:31:00 Test Item Value Reference Range Interpretation Comments Chloride Lvl (test code = Chloride Lvl) 101 95-109 [facility]2019-12-04 11:31:00 Test Item Value Reference Range Interpretation Comments CO2 (test code = CO2) 30 24-32 [facility]2019-12-04 11:31:00 Test Item Value Reference Range Interpretation Comments Calcium Lvl (test code = Calcium Lvl) 9.6 8.5-10.5 [facility]2019-12-04 11:31:00 Test Item Value Reference Range Interpretation Comments Bili Total (test code = Bili Total) 0.5 0.2-1.3 [facility]2019-12-04 11:31:00 Test Item Value Reference Range Interpretation Comments Total Protein (test code = Total 8.3 6.4-8.4 Protein) [facility]2019-12-04 11:31:00 Test Item Value Reference Range Interpretation Comments AST (test code = AST) 54 See_Comment [Auto mated message] The system which ge nerated this result transmit yanely reference range : <=37. The reference range was not used to interpr et this result as brielle l/abnormal. [facility]2019-12-04 11:31:00 Test Item Value Reference Range Interpretation Comments eGFR (test code = eGFR) 117 [facility]2019-12-04 11:31:00 Test Item Value Reference Range Interpretation Comments AGAP (test code = AGAP) 11.0 10.0-20.0 [facility]2019-12-04 11:31:00 Test Item Value Reference Range Interpretation Comments B/C Ratio (test code = B/C Ratio) 17 1 6-25 [facility]2019-12-04 11:31:00 Test Item Value Reference Range Interpretation Comments Globulin (test code = Globulin) 4.8 2.7-4.2 [facility]2019-12-04 11:31:00 Test Item Value Reference Range Interpretation Comments A/G Ratio (test code = A/G Ratio) 0.7 1 0.7-1.6 [facility]AUTVBUJTQE3662-87-29 11:31:00 Test Item Value Reference Range Interpretation Comments Plt Morph (test code = Normal (02/19/19 5:31 Plt Morph) AM) [facility] HospitalDrwjqnfQFVGYOHTUJ0655-94-70 11:31:00 Test Item Value Reference Range Interpretation Comments Segs (test code = Segs) 60.5 45.0-75.0 [facility] HospitalLbzxivtOBPOOVXOAL2812-61-59 11:31:00 Test Item Value Reference Range Interpretation Comments Lymphocytes (test code = Lymphocytes) 28.8 20.0-40.0 [facility] HospitalTuxrrlwLWSINETKGS7173-44-57 11:31:00 Test Item Value Reference Range Interpretation Comments Monocytes (test code = Monocytes) 8.5 2.0-12.0 [facility] HospitalFlzjgzlNOCXCUZRQW8728-50-37 11:31:00 Test Item Value Reference Range Interpretation Comments Eosinophils (test code = 1.5 See_Comment [A utomated message] The Eosinophils) system which ge nerated this result tra nsmitted reference range : <=4.0. The reference r matthieu was not used to int erpret this result as normal/abnormal . [facility] HospitalZpgldalSNDWPRGBQG8882-17-72 11:31:00 Test Item Value Reference Range Interpretation Comments Basophils (test code = 0.7 See_Comment [Aut omated message] The Basophils) system which ge nerated this result tra nsmitted reference range : <=1.0. The reference r matthieu was not used to int erpret this result as normal/abnormal . [facility] HospitalZeswdytCHHPXGDEZC4347-03-35 11:31:00 Test Item Value Reference Range Interpretation Comments Neutrophils # (test code = Neutrophils 6.2 1.5-8.1 #) [facility] HospitalOqxhupgFTVAKWHOQL3386-01-02 11:31:00 Test Item Value Reference Range Interpretation Comments Lymphocytes # (test code = Lymphocytes 3.0 1.0-5.5 #) [id number] 11:31:00 Test Item Value Reference Range Interpretation Comments Monocytes # (test code 0.9 See_Comment [Aut omated message] The = Monocytes #) system which generated this result tra nsmitted reference range : <=0.8. The reference r matthieu was not used to int erpret this result as normal/abnormal . [facility] HospitalJgcqqclMWMNUZCNIT8369-94-52 11:31:00 Test Item Value Reference Range Interpretation Comments Eosinophils # (test code 0.2 See_Comment [A utomated message] The = Eosinophils #) system whic h generated this result tra nsmitted reference range : <=0.5. The reference r matthieu was not used to int erpret this result as normal/abnormal . [facility] HospitalZowgbcoPFLKFZCIMX1794-63-66 11:31:00 Test Item Value Reference Range Interpretation Comments Basophils # (test code 0.1 See_Comment [Aut omated message] The = Basophils #) system which generated this result tra nsmitted reference range : <=0.2. The reference r matthieu was not used to int erpret this result as normal/abnormal . [facility] HospitalLwiruvfVEJZMDGUZG1357-08-32 11:31:00 Test Item Value Reference Range Interpretation Comments Microcyte (test code = 1+ *ABN*(02/19/19 Microcyte) 5:31 AM) [facility] HospitalOvsroivOUCMMCVRAJ2768-82-33 11:31:00 Test Item Value Reference Range Interpretation Comments WBC (test code = WBC) 10.7 3.7-10.4 [facility] HospitalVqkrkqkMUGAWOVBVY6686-82-65 11:31:00 Test Item Value Reference Range Interpretation Comments RBC (test code = RBC) 5.16 4.70-6.10 [facility] HospitalLxtbpuwCJZMWKZJVV9571-69-33 11:31:00 Test Item Value Reference Range Interpretation Comments Hgb (test code = Hgb) 12.9 14.0-18.0 [facility] HospitalPqgmaziXQVCKVYFTQ3709-74-53 11:31:00 Test Item Value Reference Range Interpretation Comments Hct (test code = Hct) 39.3 42.0-54.0 [facility] HospitalTfwjtppGMOYIVMFMC6428-25-34 11:31:00 Test Item Value Reference Range Interpretation Comments MCV (test code = MCV) 76.2 80.0-94.0 [facility] HospitalZjqhbdcESOJDSDCOB3207-68-44 11:31:00 Test Item Value Reference Range Interpretation Comments MCH (test code = MCH) 25.0 pg 27.0-31.0 [facility] HospitalCdszoldTCTFDCEMMN2132-24-23 11:31:00 Test Item Value Reference Range Interpretation Comments MCHC (test code = MCHC) 32.8 32.0-36.0 [facility] HospitalPprewjgGXEOLSHHXN6256-71-06 11:31:00 Test Item Value Reference Range Interpretation Comments RDW (test code = RDW) 18.1 11.5-14.5 [facility] HospitalLvbwsgnSVABQFYMFH9148-33-55 11:31:00 Test Item Value Reference Range Interpretation Comments Platelet (test code = Platelet) 441 726-450 [facility]NGNTCIJDMI9456-86-72 11:31:00 Test Item Value Reference Range Interpretation Comments MPV (test code = MPV) 8.7 7.4-10.4 [facility] AND [id number] 11:31:00 Test Item Value Reference Range Interpretation Comments UA Color (test code = Yellow *NA*(02/19/19 UA Color) 5:31 AM) [facility] AND [id number] 11:31:00 Test Item Value Reference Range Interpretation Comments UA Turbidity (test code = Clear (02/19/19 5:31 UA Turbidity) AM) [facility] AND [id number] 11:31:00 Test Item Value Reference Range Interpretation Comments UA Spec Grav (test code = UA Spec 1.010 1 Grav) [facility] AND [id number] 11:31:00 Test Item Value Reference Range Interpretation Comments UA pH (test code = UA pH) 6.0 1 5.0-8.0 [facility] AND [id number] 11:31:00 Test Item Value Reference Range Interpretation Comments UA Protein (test code = UA Negative mg/dL Protein) [facility] AND [id number] 11:31:00 Test Item Value Reference Range Interpretation Comments UA Glucose (test code = UA Negative mg/dL Glucose) [facility] AND [id number] 11:31:00 Test Item Value Reference Range Interpretation Comments UA Ketones (test code = UA Negative mg/dL Ketones) [facility] AND [id number] 11:31:00 Test Item Value Reference Range Interpretation Comments UA Bili (test code = Negative *NA*(02/19/19 UA Bili) 5:31 AM) [facility] AND [id number] 11:31:00 Test Item Value Reference Range Interpretation Comments UA Blood (test code = Negative (02/19/19 5:31 UA Blood) AM) [facility] AND [id number] 11:31:00 Test Item Value Reference Range Interpretation Comments UA Urobilinogen (test code = UA 0.2 0.1-1.0 Urobilinogen) [facility] AND [id number] 11:31:00 Test Item Value Reference Range Interpretation Comments UA Nitrite (test code Negative (02/19/19 5:31 = UA Nitrite) AM) [facility] AND [id number] 11:31:00 Test Item Value Reference Range Interpretation Comments UA Leuk Est (test Negative (02/19/19 5:31 code = UA Leuk Est) AM) [facility] AND [id number] 11:31:00 Test Item Value Reference Range Interpretation Comments UA Sq Epi (test code = UA Sq Epi) Rare /LPF [facility] AND [id number] 11:31:00 Test Item Value Reference Range Interpretation Comments UA WBC (test code = UA WBC) 0-2 /HPF [facility] AND [id number] 11:31:00 Test Item Value Reference Range Interpretation Comments UA RBC (test code = 0-2 /HPF See_Comment [Automa yanely message] The UA RBC) system which ge nerated this result tra nsmitted reference range : <=2. The reference range was not used to interpr et this result as brielle l/abnormal. [facility] AND [id number] 11:31:00 Test Item Value Reference Range Interpretation Comments UA Bacteria (test code = UA Bacteria) rare [facility] HospitalYidzlldTJVRSMMXUQ3708-89-93 22:40:00 Test Item Value Reference Range Interpretation Comments WBC (test code = WBC) 16.7 3.7-10.4 [facility] HospitalBxwsdqnSCPRRWHCRO8294-25-42 22:40:00 Test Item Value Reference Range Interpretation Comments RBC (test code = RBC) 5.34 4.70-6.10 [facility] HospitalEubogohLXHCAMKSHG4463-08-58 22:40:00 Test Item Value Reference Range Interpretation Comments Hgb (test code = Hgb) 13.4 14.0-18.0 [facility] HospitalAhqmdlsIGGILZKCNV8858-09-76 22:40:00 Test Item Value Reference Range Interpretation Comments Hct (test code = Hct) 40.8 42.0-54.0 [facility] HospitalZvyxxdoWPZFHSVCDO5013-74-97 22:40:00 Test Item Value Reference Range Interpretation Comments MCV (test code = MCV) 76.4 80.0-94.0 [facility] HospitalWszqtmsYRQORNLDFO5947-24-67 22:40:00 Test Item Value Reference Range Interpretation Comments MCH (test code = MCH) 25.0 pg 27.0-31.0 [facility] HospitalKujludeRIWMJPQOWS2305-71-60 22:40:00 Test Item Value Reference Range Interpretation Comments MCHC (test code = MCHC) 32.7 32.0-36.0 [facility] HospitalKvjigshABCFSXQKAR7701-83-80 22:40:00 Test Item Value Reference Range Interpretation Comments RDW (test code = RDW) 17.9 11.5-14.5 [facility] HospitalMcloljeSJVNIXLFIZ8315-23-57 22:40:00 Test Item Value Reference Range Interpretation Comments Platelet (test code = Platelet) 465 133-450 [facility] HospitalUpwvetrDLOLLHRERY0364-47-02 22:40:00 Test Item Value Reference Range Interpretation Comments MPV (test code = MPV) 8.3 7.4-10.4 [facility] HospitalAyqljnnAMNJSLKNIW9087-70-57 22:40:00 Test Item Value Reference Range Interpretation Comments Segs (test code = Segs) 71.8 45.0-75.0 [facility] HospitalRfkftvrXDUVJKEMJE5376-42-94 22:40:00 Test Item Value Reference Range Interpretation Comments Lymphocytes (test code = Lymphocytes) 20.6 20.0-40.0 [facility] HospitalNtnkpkhQDTFBGDHQH8474-87-49 22:40:00 Test Item Value Reference Range Interpretation Comments Monocytes (test code = Monocytes) 6.1 2.0-12.0 [facility] HospitalVenbcniIQHTLPHBOF2952-35-05 22:40:00 Test Item Value Reference Range Interpretation Comments Eosinophils (test code = 1.0 See_Comment [A utomated message] The Eosinophils) system which ge nerated this result tra nsmitted reference range : <=4.0. The reference r matthieu was not used to int erpret this result as normal/abnormal . [facility] HospitalLsxokrcUWMAWYCHHF9820-89-05 22:40:00 Test Item Value Reference Range Interpretation Comments Basophils (test code = 0.5 See_Comment [Aut omated message] The Basophils) system which ge nerated this result tra nsmitted reference range : <=1.0. The reference r matthieu was not used to int erpret this result as normal/abnormal . [facility] HospitalTpxemodVZBFRUMTVH7495-49-44 22:40:00 Test Item Value Reference Range Interpretation Comments Neutrophils # (test code = Neutrophils 12.0 1.5-8.1 #) [facility] HospitalZoaywhfWKCQWMWHZP7511-13-11 22:40:00 Test Item Value Reference Range Interpretation Comments Lymphocytes # (test code = Lymphocytes 3.4 1.0-5.5 #) [facility] HospitalBegrjikGXWJQIYHYU4086-45-91 22:40:00 Test Item Value Reference Range Interpretation Comments Monocytes # (test code 1.0 See_Comment [Aut omated message] The = Monocytes #) system which generated this result tra nsmitted reference range : <=0.8. The reference r matthieu was not used to int erpret this result as normal/abnormal . [facility] HospitalGzbgyazUCCQHSDZOR7856-75-22 22:40:00 Test Item Value Reference Range Interpretation Comments Eosinophils # (test code 0.2 See_Comment [A utomated message] The = Eosinophils #) system whic h generated this result tra nsmitted reference range : <=0.5. The reference r matthieu was not used to int erpret this result as normal/abnormal . [facility] HospitalMbbucfcQWQXHIYLGR5092-97-64 22:40:00 Test Item Value Reference Range Interpretation Comments Basophils # (test code 0.1 See_Comment [Aut omated message] The = Basophils #) system which generated this result tra nsmitted reference range : <=0.2. The reference r matthieu was not used to int erpret this result as normal/abnormal . [facility] HospitalJlfcaziKMMKDMOMKA5769-68-71 22:40:00 Test Item Value Reference Range Interpretation Comments Microcyte (test code = 1+ *ABN*(02/17/19 Microcyte) 4:40 PM) [facility] HospitalAvtqehgKFBSDLHRUX3682-85-28 10:46:00 Test Item Value Reference Range Interpretation Comments Segs (test code = Segs) 63.9 45.0-75.0 [facility] HospitalGewjwxjUCYWGTFVEE3945-78-19 10:46:00 Test Item Value Reference Range Interpretation Comments Lymphocytes (test code = Lymphocytes) 26.9 20.0-40.0 [facility] HospitalGlgsfhhXVCWTGBIHU4380-35-10 10:46:00 Test Item Value Reference Range Interpretation Comments Monocytes (test code = Monocytes) 6.9 2.0-12.0 [facility] HospitalDtsmibuXKNTHCNJMS5147-58-28 10:46:00 Test Item Value Reference Range Interpretation Comments Eosinophils (test code = 1.9 See_Comment [A utomated message] The Eosinophils) system which ge nerated this result tra nsmitted reference range : <=4.0. The reference r matthieu was not used to int erpret this result as normal/abnormal . [facility] HospitalPwatocgVRZFAVELAK0451-49-89 10:46:00 Test Item Value Reference Range Interpretation Comments Basophils (test code = 0.4 See_Comment [Aut omated message] The Basophils) system which ge nerated this result tra nsmitted reference range : <=1.0. The reference r matthieu was not used to int erpret this result as normal/abnormal . [facility] HospitalGgerubxDYOSCRKINK9829-78-04 10:46:00 Test Item Value Reference Range Interpretation Comments Neutrophils # (test code = Neutrophils 7.5 1.5-8.1 #) [facility] HospitalGgniyrqMBTLIDBKYB1850-53-46 10:46:00 Test Item Value Reference Range Interpretation Comments Lymphocytes # (test code = Lymphocytes 3.1 1.0-5.5 #) [facility] HospitalIyxvbfpPLHUZNWQYC6952-93-11 10:46:00 Test Item Value Reference Range Interpretation Comments Monocytes # (test code 0.8 See_Comment [Aut omated message] The = Monocytes #) system which generated this result tra nsmitted reference range : <=0.8. The reference r matthieu was not used to int erpret this result as normal/abnormal . [facility] HospitalKwjljblQNIHWPQQTO3012-67-28 10:46:00 Test Item Value Reference Range Interpretation Comments Eosinophils # (test code 0.2 See_Comment [A utomated message] The = Eosinophils #) system ic h generated this result tra nsmitted reference range : <=0.5. The reference r matthieu was not used to int erpret this result as normal/abnormal . [facility] HospitalKthaotdXJTGNVAYIH6972-34-31 10:46:00 Test Item Value Reference Range Interpretation Comments Microcyte (test code = 1+ *ABN*(02/15/19 Microcyte) 4:46 AM) [facility] HospitalRskcjarCMXGZWMOKY2935-61-45 10:46:00 Test Item Value Reference Range Interpretation Comments WBC (test code = WBC) 11.7 3.7-10.4 [facility] HospitalVctfvpvUVUAMUGIUH1676-36-97 10:46:00 Test Item Value Reference Range Interpretation Comments RBC (test code = RBC) 5.13 4.70-6.10 [facility] HospitalOfvejiiMNUWJTVBCF5092-60-74 10:46:00 Test Item Value Reference Range Interpretation Comments Hgb (test code = Hgb) 12.4 14.0-18.0 [facility] HospitalYejfmbeZRDXKBWUFG6972-61-84 10:46:00 Test Item Value Reference Range Interpretation Comments Hct (test code = Hct) 39.5 42.0-54.0 [facility] HospitalZuqkrkdQZVUGFDRDU4693-30-30 10:46:00 Test Item Value Reference Range Interpretation Comments MCV (test code = MCV) 77.1 80.0-94.0 [facility] HospitalCgetxojBOGHKUGFSG0997-03-97 10:46:00 Test Item Value Reference Range Interpretation Comments MCH (test code = MCH) 24.1 pg 27.0-31.0 [facility] HospitalOsqvzuvQMGAMKDJPC1651-70-82 10:46:00 Test Item Value Reference Range Interpretation Comments MCHC (test code = MCHC) 31.2 32.0-36.0 [facility] HospitalGypnwwdAPRKNZGBIB9221-22-74 10:46:00 Test Item Value Reference Range Interpretation Comments RDW (test code = RDW) 17.2 11.5-14.5 [facility] HospitalEgpewbgNSARAWDYQE9471-06-21 10:46:00 Test Item Value Reference Range Interpretation Comments Platelet (test code = Platelet) 406 133-450 [facility] HospitalSjtolsvPNCINYJNZT0126-83-24 10:46:00 Test Item Value Reference Range Interpretation Comments MPV (test code = MPV) 8.6 7.4-10.4 [facility]2019-11-27 10:14:00 Test Item Value Reference Range Interpretation Comments Iron (test code = Iron) 48 45-160 [facility]2019-11-27 10:14:00 Test Item Value Reference Range Interpretation Comments TIBC (test code = TIBC) 276 228-428 [facility]2019-11-27 10:14:00 Test Item Value Reference Range Interpretation Comments UIBC (test code = UIBC) 228 110-370 [facility]2019-11-27 10:14:00 Test Item Value Reference Range Interpretation Comments % Satur Fe (test code = % Satur Fe) 17 12-57 [facility]2019-11-27 10:14:00 Test Item Value Reference Range Interpretation Comments Ferritin Lvl (test code = Ferritin Lvl) 173 22-275 [facility]2019-11-27 10:14:00 Test Item Value Reference Range Interpretation Comments Phosphorus (test code = Phosphorus) 3.4 2.5-4.5 [facility]2019-11-27 10:14:00 Test Item Value Reference Range Interpretation Comments Magnesium Lvl (test code = Magnesium 2.2 1.8-2.4 Lvl) [facility]2019-11-25 10:27:00 Test Item Value Reference Range Interpretation Comments ALT (test code = ALT) 49 See_Comment [Auto mated message] The system which ge nerated this result transmit yanely reference range : <=65. The reference range was not used to interpr et this result as brielle l/abnormal. [facility]2019-11-25 10:27:00 Test Item Value Reference Range Interpretation Comments Albumin Lvl (test code = Albumin Lvl) 2.8 3.5-5.0 [facility]2019-11-25 10:27:00 Test Item Value Reference Range Interpretation Comments Alk Phos (test code = Alk Phos) 76 39-136 [facility]2019-11-25 10:27:00 Test Item Value Reference Range Interpretation Comments Glucose Lvl (test code = Glucose Lvl) 108 70-99 [facility]2019-11-25 10:27:00 Test Item Value Reference Range Interpretation Comments BUN (test code = BUN) 8 7-22 [facility]2019-11-25 10:27:00 Test Item Value Reference Range Interpretation Comments Creatinine Lvl (test code = Creatinine 0.60 0.50-1.40 Lvl) [facility]2019-11-25 10:27:00 Test Item Value Reference Range Interpretation Comments Sodium Lvl (test code = Sodium Lvl) 141 135-145 [facility]2019-11-25 10:27:00 Test Item Value Reference Range Interpretation Comments Potassium Lvl (test code = Potassium 3.7 3.5-5.1 Lvl) [facility]2019-11-25 10:27:00 Test Item Value Reference Range Interpretation Comments Chloride Lvl (test code = Chloride Lvl) 106 95-109 [facility]2019-11-25 10:27:00 Test Item Value Reference Range Interpretation Comments CO2 (test code = CO2) 27 24-32 [facility]2019-11-25 10:27:00 Test Item Value Reference Range Interpretation Comments Calcium Lvl (test code = Calcium Lvl) 8.4 8.5-10.5 [facility]2019-11-25 10:27:00 Test Item Value Reference Range Interpretation Comments Bili Total (test code = Bili Total) 0.3 0.2-1.3 [facility]2019-11-25 10:27:00 Test Item Value Reference Range Interpretation Comments Total Protein (test code = Total 7.4 6.4-8.4 Protein) [facility]2019-11-25 10:27:00 Test Item Value Reference Range Interpretation Comments AST (test code = AST) 45 See_Comment [Auto mated message] The system which ge nerated this result transmit yanely reference range : <=37. The reference range was not used to interpr et this result as brielle l/abnormal. [facility]2019-11-25 10:27:00 Test Item Value Reference Range Interpretation Comments eGFR (test code = eGFR) 121 [facility]2019-11-25 10:27:00 Test Item Value Reference Range Interpretation Comments AGAP (test code = AGAP) 11.7 10.0-20.0 [facility]2019-11-25 10:27:00 Test Item Value Reference Range Interpretation Comments B/C Ratio (test code = B/C Ratio) 13 1 6-25 [facility]2019-11-25 10:27:00 Test Item Value Reference Range Interpretation Comments Globulin (test code = Globulin) 4.6 2.7-4.2 [facility]2019-11-25 10:27:00 Test Item Value Reference Range Interpretation Comments A/G Ratio (test code = A/G Ratio) 0.6 1 0.7-1.6 [facility]ExehhhoVKJCHCHIZO0957-98-87 10:27:00 Test Item Value Reference Range Interpretation Comments Bands (test code = 1.0 See_Comment [Automat ed message] The Bands) system which ge nerated this result transmit yanely reference range : <=11.0. The reference r matthieu was not used to interpr et this result as brielle l/abnormal. [facility] HospitalRnrizrlABPKGSXFKO5693-38-70 10:27:00 Test Item Value Reference Range Interpretation Comments Metamyelocytes (test code 3.0 See_Comment [ Automated message] = Metamyelocytes) The system which generated this result transmitted ref erence range: <=1.0. T he reference range was not used to int erpret this result as normal/abnormal . [facility]UnygoktMTLWEXSHHO0824-62-31 10:27:00 Test Item Value Reference Range Interpretation Comments Myelocytes (test code = Myelocytes) 4.0 [facility] HospitalVgamigsAJSDONLFWM2165-70-46 10:27:00 Test Item Value Reference Range Interpretation Comments Promyelocytes (test code = 1.0 Promyelocytes) [facility] HospitalOymjqblIYZOGHUJXS4226-84-54 10:27:00 Test Item Value Reference Range Interpretation Comments Atypical Lymphs (test code = Atypical 0.0 Lymphs) [facility] HospitalWaflzytGUXQIVFPER2248-39-18 10:27:00 Test Item Value Reference Range Interpretation Comments Plt Morph (test code = Normal (02/10/19 4:27 Plt Morph) AM) [facility]uvHGNXOIPAFJ7501[facility]-53 19:50:00 Test Item Value Reference Range Interpretation Comments Vanco Lvl (test code = Vanco Lvl) 10.0 [facility]CHE[facility] NDCLU7635-73-11 19:16:00 Test Item Value Reference Range Interpretation Comments Phosphorus (test code = Phosphorus) 1.8 2.5-4.5 [facility] KLKNS6344-72-31 19:16:00 Test Item Value Reference Range Interpretation Comments Magnesium Lvl (test code = Magnesium 2.1 1.8-2.4 Lvl) [facility]qytpMZLPNNDOOZRF1544-95-93 19:16:00 Test Item Value Reference Range Interpretation Comments AGAP (test code = AGAP) 10.9 10.0-20.0 [facility]EgwgnjvYHEXDXVDYPGQ9806-34-69 19:16:00 Test Item Value Reference Range Interpretation Comments B/C Ratio (test code = B/C Ratio) -25 [facility]kkztqmIGVFBOIAZVEQ7507-60-77 19:16:00 Test Item Value Reference Range Interpretation Comments Globulin (test code = Globulin) 4.6 2.7-4.2 [facility]UhkmpwuNJQKPTBIHJMS1763-90-44 19:16:00 Test Item Value Reference Range Interpretation Comments A/G Ratio (test code = A/G Ratio) 0.6 1 0.7-1.6 [facility]OkfsudcDBPYVYAJWYFH7699-40-05 19:16:00 Test Item Value Reference Range Interpretation Comments Glucose Lvl (test code = Glucose Lvl) 194 70-99 [facility] MichiganEzakguqOKHIFMZSRHIK8854-92-56 19:16:00 Test Item Value Reference Range Interpretation Comments BUN (test code = BUN) 7 7-22 [facility]PgtxijfOJWBIURYRWTX2710-32-85 19:16:00 Test Item Value Reference Range Interpretation Comments Creatinine Lvl (test code = Creatinine 0.62 0.50-1.40 Lvl) [facility]GfeftkiMNYKLPHYUTKN8940-95-47 19:16:00 Test Item Value Reference Range Interpretation Comments Sodium Lvl (test code = Sodium Lvl) 138 135-145 [facility]XwtuqctIYYNQUEXIWDJ7342-32-79 19:16:00 Test Item Value Reference Range Interpretation Comments Potassium Lvl (test code = Potassium 3.9 3.5-5.1 Lvl) [facility] MichiganKivuuazEWLICNOEONCI4524-48-06 19:16:00 Test Item Value Reference Range Interpretation Comments Chloride Lvl (test code = Chloride Lvl) 103 95-109 [facility] MichiganXgnbrdbMSSIHCTMSGJJ8509-19-46 19:16:00 Test Item Value Reference Range Interpretation Comments CO2 (test code = CO2) 28 24-32 [facility] MichiganYcaajzjDFETEQEBSRKQ0800-66-31 19:16:00 Test Item Value Reference Range Interpretation Comments Calcium Lvl (test code = Calcium Lvl) 8.6 8.5-10.5 [facility] MichiganBbmsjrbCAZRBPWJUXXR6112-50-29 19:16:00 Test Item Value Reference Range Interpretation Comments Total Protein (test code = Total 7.5 6.4-8.4 Protein) [facility] MichiganHoiionbJNDCBMEXHEDA1790-34-38 19:16:00 Test Item Value Reference Range Interpretation Comments Albumin Lvl (test code = Albumin Lvl) 2.9 3.5-5.0 [facility] MichiganFiuohgnRIWCIAFRUHKX6196-64-30 19:16:00 Test Item Value Reference Range Interpretation Comments ALT (test code = ALT) 43 See_Comment [Auto mated message] The system which ge nerated this result transmit yanely reference range : <=65. The reference range was not used to interpr et this result as brielle l/abnormal. [facility] MichiganSzmudzlZOCZMMTUXWSG2107-60-97 19:16:00 Test Item Value Reference Range Interpretation Comments AST (test code = AST) 37 See_Comment [Auto mated message] The system which ge nerated this result transmit yanely reference range : <=37. The reference range was not used to interpr et this result as brielle l/abnormal. [facility] MichiganNfbqwgtEXJJZGQCBCBG0168-83-87 19:16:00 Test Item Value Reference Range Interpretation Comments Alk Phos (test code = Alk Phos) 83 39-136 [facility] MichiganPnhucapXHUGHTUTHBJZ5325-06-48 19:16:00 Test Item Value Reference Range Interpretation Comments Bili Total (test code = Bili Total) 0.4 0.2-1.3 [facility] MichiganAjtlktxXFKKJFPAMOFN1920-06-13 19:16:00 Test Item Value Reference Range Interpretation Comments eGFR (test code = eGFR) 119 [facility] HospitalHpbjnboQUOCDYLCUG0756-46-21 19:16:00 Test Item Value Reference Range Interpretation Comments Bands (test code = 0.0 See_Comment [Automat ed message] The [employer]) system which ge nerated this result transmit yanely reference range : <=11.0. The reference r matthieu was not used to interpr et this result as brielle l/abnormal. [facility]IftlsxiJAMRYZIZXP6283-08-56 19:16:00 Test Item Value Reference Range Interpretation Comments Metamyelocytes (test code 2.0 See_Comment [ Automated message] = Metamyelocytes) The system which generated this result transmitted ref erence range: <=1.0. T he reference range was not used to int erpret this result as normal/abnormal . [facility] HospitalTzoxwrbXTFOBSZHXN1382-04-36 19:16:00 Test Item Value Reference Range Interpretation Comments Myelocytes (test code = Myelocytes) 2.0 [facility] HospitalWouczblIERSMLXJZB5017-22-57 19:16:00 Test Item Value Reference Range Interpretation Comments Atypical Lymphs (test code = Atypical 0.0 Lymphs) [facility] HospitalSmgzoqjMCUMBBJDJY2943-06-81 19:16:00 Test Item Value Reference Range Interpretation Comments NRBC (test code = NRBC) 1 [facility] HospitalAwvihjzYJZWZQJBSM2777-47-46 19:16:00 Test Item Value Reference Range Interpretation Comments Plt Morph (test code = Normal (02/08/19 1:16 Plt Morph) PM) [facility]swdnomFTCRVCBXBB5400-21-12 19:16:00 Test Item Value Reference Range Interpretation Comments Anisocyte (test code = 1+ *ABN*(02/08/19 Anisocyte) 1:16 PM) [facility] HospitalGpbbtsuCYUMUNKZQH7941-20-21 19:16:00 Test Item Value Reference Range Interpretation Comments Hypochrom (test code = 1+ (02/08/19 1:16 Hypochrom) PM) [facility] HospitalZiuxcutGPJBBJQYQT7857-74-74 19:16:00 Test Item Value Reference Range Interpretation Comments Prealbumin (test code = Prealbumin) 9.1 18.0-45.0 [facility] HospitalZzepdzpKOFBNW5749-29-73 19:16:00 Test Item Value Reference Range Interpretation Comments Trig (test code = Trig) 146 [facility]IwqyvdlDZNGWO6842-04-91 19:16:00 Test Item Value Reference Range Interpretation Comments Chol (test code = Chol) 158 [facility] HospitalVlsevihBGQBTG2114-93-74 19:16:00 Test Item Value Reference Range Interpretation Comments HDL (test code = HDL) 26 [facility] HospitalCmivrduAQGRAR1886-43-89 19:16:00 Test Item Value Reference Range Interpretation Comments LDL (Calculated) (test code = LDL 103 (Calculated)) [facility]PnrhrpwFKIHFG1377-24-10 19:16:00 Test Item Value Reference Range Interpretation Comments VLDL (test code = VLDL) 29 1 [facility] HospitalCcepxafJEBQNK9050-60-56 19:16:00 Test Item Value Reference Range Interpretation Comments CHD Risk (test code = CHD Risk) 6.08 1 4.00-7.30 [facility] [id number] 19:16:00 Test Item Value Reference Range Interpretation Comments Hgb A1C (test code = Hgb A1C) 7.3 [facility] AND [id number] 16:57:00 Test Item Value Reference Range Interpretation Comments UA Color (test code = Yellow *NA*(02/08/19 UA Color) 10:57 AM) [facility] HospitalannPSE[facility] [id number] 16:57:00 Test Item Value Reference Range Interpretation Comments UA Turbidity (test code Slight *ABN*(02/08/19 = UA Turbidity) 10:57 AM) [facility] AND [id number] 16:57:00 Test Item Value Reference Range Interpretation Comments UA Spec Grav (test code = UA Spec 1.021 1 Grav) [facility] AND [id number] 16:57:00 Test Item Value Reference Range Interpretation Comments UA pH (test code = UA pH) 6.0 1 5.0-8.0 [facility] AND [id number] 16:57:00 Test Item Value Reference Range Interpretation Comments UA Protein (test code = UA Negative mg/dL Protein) [facility] AND [id number] 16:57:00 Test Item Value Reference Range Interpretation Comments UA Glucose (test code = UA Negative mg/dL Glucose) [facility] AND [id number] 16:57:00 Test Item Value Reference Range Interpretation Comments UA Ketones (test code = UA Negative mg/dL Ketones) [facility] AND [id number] 16:57:00 Test Item Value Reference Range Interpretation Comments UA Bili (test code = Negative *NA*(02/08/19 UA Bili) 10:57 AM) [facility] AND [id number] 16:57:00 Test Item Value Reference Range Interpretation Comments UA Blood (test code = Negative (02/08/19 10:57 UA Blood) AM) [facility] AND [id number] 16:57:00 Test Item Value Reference Range Interpretation Comments UA Urobilinogen (test code = UA no gt 0.1-1.0 Urobilinogen) [facility] AND [id number] 16:57:00 Test Item Value Reference Range Interpretation Comments UA Nitrite (test code Negative (02/08/19 = UA Nitrite) 10:57 AM) [facility] AND [id number] 16:57:00 Test Item Value Reference Range Interpretation Comments UA Leuk Est (test code Trace *ABN*(02/08/19 = UA Leuk Est) 10:57 AM) [facility] AND [id number] 16:57:00 Test Item Value Reference Range Interpretation Comments UA Sq Epi (test code = UA Sq Occasional /LPF Epi) [facility] AND [id number] 16:57:00 Test Item Value Reference Range Interpretation Comments UA WBC (test code = 2 See_Comment [Automa yanely message] The UA WBC) system which ge nerated this result transmit yanely reference range : <=5. The reference range was not used to interpr et this result as brielle l/abnormal. [facility]ann[facility] AND [id number] 16:57:00 Test Item Value Reference Range Interpretation Comments UA Mucus (test code = UA Mucus) Few /LPF [facility] HospitalannCARDIAC [id number] 10:25:00 Test Item Value Reference Range Interpretation Comments Total CK (test code = Total CK) 396 12-191 [facility]CAR[facility] [id number] 10:25:00 Test Item Value Reference Range Interpretation Comments CK MB (test code = CK MB) 1.7 0.5-3.6 [facility] [id number] 10:25:00 Test Item Value Reference Range Interpretation Comments CK MB Index (test 0.4 1 See_Comment [Automate d message] The code = CK MB Index) system [facility] generated this result transmit yanely reference range : <=2.5. The reference range was not used to interpr et this result as brielle l/abnormal. [facility] [employer] [id number] 10:25:00 Test Item Value Reference Range Interpretation Comments Glucose Lvl (test code = Glucose Lvl) 125 70-99 [facility] [id number] 10:25:00 Test Item Value Reference Range Interpretation Comments BUN (test code = BUN) 7 7-22 [facility] [id number] 10:25:00 Test Item Value Reference Range Interpretation Comments Creatinine Lvl (test code = Creatinine 0.60 0.50-1.40 Lvl) [facility] [id number] 10:25:00 Test Item Value Reference Range Interpretation Comments Sodium Lvl (test code = Sodium Lvl) 142 135-145 [facility] [id number] 10:25:00 Test Item Value Reference Range Interpretation Comments Potassium Lvl (test code = Potassium 3.7 3.5-5.1 Lvl) [facility] [id number] 10:25:00 Test Item Value Reference Range Interpretation Comments Chloride Lvl (test code = Chloride Lvl) 106 95-109 [facility]2019-11-22 10:25:00 Test Item Value Reference Range Interpretation Comments CO2 (test code = CO2) 31 24-32 [facility]2019-11-22 10:25:00 Test Item Value Reference Range Interpretation Comments Calcium Lvl (test code = Calcium Lvl) 8.2 8.5-10.5 [facility]2019-11-22 10:25:00 Test Item Value Reference Range Interpretation Comments Total Protein (test code = Total 7.3 6.4-8.4 Protein) [facility]2019-11-22 10:25:00 Test Item Value Reference Range Interpretation Comments Albumin Lvl (test code = Albumin Lvl) 2.8 3.5-5.0 [facility]2019-11-22 10:25:00 Test Item Value Reference Range Interpretation Comments ALT (test code = ALT) 29 See_Comment [Auto mated message] The system which ge nerated this result transmit yanely reference range : <=65. The reference range was not used to interpr et this result as brielle l/abnormal. [facility]2019-11-22 10:25:00 Test Item Value Reference Range Interpretation Comments AST (test code = AST) 27 See_Comment [Auto mated message] The system which ge nerated this result transmit yanely reference range : <=37. The reference range was not used to interpr et this result as brielle l/abnormal. [facility]2019-11-22 10:25:00 Test Item Value Reference Range Interpretation Comments Alk Phos (test code = Alk Phos) 84 39-136 [facility]2019-11-22 10:25:00 Test Item Value Reference Range Interpretation Comments Bili Total (test code = Bili Total) 0.4 0.2-1.3 [facility]2019-11-22 10:25:00 Test Item Value Reference Range Interpretation Comments eGFR (test code = eGFR) 121 [facility]2019-11-22 10:25:00 Test Item Value Reference Range Interpretation Comments AGAP (test code = AGAP) 8.7 10.0-20.0 [facility]2019-11-22 10:25:00 Test Item Value Reference Range Interpretation Comments B/C Ratio (test code = B/C Ratio) 12 1 6-25 [facility]2019-11-22 10:25:00 Test Item Value Reference Range Interpretation Comments Globulin (test code = Globulin) 4.5 2.7-4.2 [facility]2019-11-22 10:25:00 Test Item Value Reference Range Interpretation Comments A/G Ratio (test code = A/G Ratio) 0.6 1 0.7-1.6 [facility]2019-11-22 10:25:00 Test Item Value Reference Range Interpretation Comments Phosphorus (test code = Phosphorus) 1.9 2.5-4.5 [facility]2019-11-22 10:25:00 Test Item Value Reference Range Interpretation Comments Magnesium Lvl (test code = Magnesium 2.2 1.8-2.4 Lvl) [facility] H[id number] 10:25:00 Test Item Value Reference Range Interpretation Comments WBC (test code = WBC) 13.7 3.7-10.4 [facility] HospitalZirownnNQMXQFSDRK0162-28-16 10:25:00 Test Item Value Reference Range Interpretation Comments RBC (test code = RBC) 4.77 4.70-6.10 [facility] HospitalTzjiazuNCFOLKFGMC9211-27-22 10:25:00 Test Item Value Reference Range Interpretation Comments Hgb (test code = Hgb) 11.6 14.0-18.0 [facility] HospitalRimotglPGGMPUWSUS0913-46-34 10:25:00 Test Item Value Reference Range Interpretation Comments Hct (test code = Hct) 37.0 42.0-54.0 [facility] HospitalCsmedvsFWATNDGLVT1662-83-21 10:25:00 Test Item Value Reference Range Interpretation Comments MCV (test code = MCV) 77.6 80.0-94.0 [facility] HospitalLkibvfgAKDUAABRDZ1973-05-27 10:25:00 Test Item Value Reference Range Interpretation Comments MCH (test code = MCH) 24.4 pg 27.0-31.0 [facility] HospitalZhjhwdwOFYOPKVCHY7866-88-40 10:25:00 Test Item Value Reference Range Interpretation Comments MCHC (test code = MCHC) 31.4 32.0-36.0 [facility] HospitalZjxyawpYVUMSASRWS4830-49-07 10:25:00 Test Item Value Reference Range Interpretation Comments RDW (test code = RDW) 17.0 11.5-14.5 [facility] HospitalBpoexruYPVJGQSFOL8605-39-55 10:25:00 Test Item Value Reference Range Interpretation Comments Platelet (test code = Platelet) 247 133-450 [facility] HospitalEzjdrqxWUGPJTPOWR3113-53-68 10:25:00 Test Item Value Reference Range Interpretation Comments MPV (test code = MPV) 9.0 7.4-10.4 [facility] HospitalHjfzkmwCYNXCEGVNA4819-68-46 10:25:00 Test Item Value Reference Range Interpretation Comments Plt Morph (test code = Normal (02/07/19 4:25 Plt Morph) AM) [facility] HospitalLbsakhfEORDJOVZAG7535-60-29 10:25:00 Test Item Value Reference Range Interpretation Comments Segs (test code = Segs) 69.9 45.0-75.0 [facility] HospitalBxcqhafNAZLRGHPZZ2906-99-78 10:25:00 Test Item Value Reference Range Interpretation Comments Lymphocytes (test code = Lymphocytes) 17.7 20.0-40.0 [facility] HospitalYbnxnjvUSSPCRMPKD4301-48-93 10:25:00 Test Item Value Reference Range Interpretation Comments Monocytes (test code = Monocytes) 10.4 2.0-12.0 [facility] HospitalDatnopsWQMCTFHQSY0817-77-06 10:25:00 Test Item Value Reference Range Interpretation Comments Eosinophils (test code = 1.6 See_Comment [A utomated message] The Eosinophils) system which ge nerated this result tra nsmitted reference range : <=4.0. The reference r matthieu was not used to int erpret this result as normal/abnormal . [facility] HospitalGzeqsxzASZBMEZTSR3349-42-03 10:25:00 Test Item Value Reference Range Interpretation Comments Basophils (test code = 0.4 See_Comment [Aut omated message] The Basophils) system which ge nerated this result tra nsmitted reference range : <=1.0. The reference r matthieu was not used to int erpret this result as normal/abnormal . [facility] HospitalNmjdkycTMHUHBTRNQ9738-89-74 10:25:00 Test Item Value Reference Range Interpretation Comments Neutrophils # (test code = Neutrophils 9.6 1.5-8.1 #) [facility] HospitalLstbhsgOEHZGCFFGW0056-62-04 10:25:00 Test Item Value Reference Range Interpretation Comments Lymphocytes # (test code = Lymphocytes 2.4 1.0-5.5 #) [facility] HospitalBpixdbfJZNDWYMOVS1560-91-40 10:25:00 Test Item Value Reference Range Interpretation Comments Monocytes # (test code 1.4 See_Comment [Aut omated message] The = Monocytes #) system which generated this result tra nsmitted reference range : <=0.8. The reference r matthieu was not used to int erpret this result as normal/abnormal . [facility] HospitalNyewoaxOEAVJXEHWK6697-21-64 10:25:00 Test Item Value Reference Range Interpretation Comments Eosinophils # (test code 0.2 See_Comment [A utomated message] The = Eosinophils #) system whic h generated this result tra nsmitted reference range : <=0.5. The reference r matthieu was not used to int erpret this result as normal/abnormal . [facility] HospitalFnpgykhVFMGMXDPOK1531-13-14 10:25:00 Test Item Value Reference Range Interpretation Comments Basophils # (test code 0.1 See_Comment [Aut omated message] The = Basophils #) system which generated this result tra nsmitted reference range : <=0.2. The reference r matthieu was not used to int erpret this result as normal/abnormal . [facility] HospitalMvdkxxcGBPOSECDQI5703-70-30 10:25:00 Test Item Value Reference Range Interpretation Comments Microcyte (test code = 1+ *ABN*(02/07/19 Microcyte) 4:25 AM) [facility]2019-11-22 10:25:00 Test Item Value Reference Range Interpretation Comments Ca Ion WB (test code = Ca Ion WB) 1.13 1.05-1.25 [facility]2019-11-22 10:25:00 Test Item Value Reference Range Interpretation Comments Ca Norm WB (test code = Ca Norm WB) 1.07 1.05-1.25 [facility] [id number] 08:10:00 Test Item Value Reference Range Interpretation Comments CK MB (test code = CK MB) 3.2 0.5-3.6 [facility] LHWVJWF2313-25-21 08:10:00 Test Item Value Reference Range Interpretation Comments CK MB Index (test 0.4 1 See_Comment [Automate d message] The code = CK MB Index) system [facility] generated this result transmit yanely reference range : <=2.5. The reference range was not used to interpr et this result as brielle l/abnormal. [facility] [employer] OQWPKHI1465-79-99 08:10:00 Test Item Value Reference Range Interpretation Comments Troponin-I (test code no gt See_Comment [Auto mated message] The = Troponin-I) system which g enerated this result transmit yanely reference range : <=0.40. The reference r matthieu was not used to interpr et this result as brielle l/abnormal. [facility] [employer] SSWSCJH8238-81-09 08:10:00 Test Item Value Reference Range Interpretation Comments Total CK (test code = Total CK) 881 12-191 [facility] [employer] [id number] 08:10:00 Test Item Value Reference Range Interpretation Comments Phosphorus (test code = Phosphorus) 1.2 2.5-4.5 [facility] [employer] OEEHR5294-94-16 08:10:00 Test Item Value Reference Range Interpretation Comments Magnesium Lvl (test code = Magnesium 2.3 1.8-2.4 Lvl) [facility] HospitalPlqhyjbBNWZNMLBCWSL4374-05-49 08:10:00 Test Item Value Reference Range Interpretation Comments AGAP (test code = AGAP) 7.4 10.0-20.0 [facility] HospitalLqeifvdUYMYBIDBYGWQ6564-24-39 08:10:00 Test Item Value Reference Range Interpretation Comments B/C Ratio (test code = B/C Ratio) 8 1 6-25 [facility] HospitalKhbguwaXNNAZZZLXGOD2328-46-74 08:10:00 Test Item Value Reference Range Interpretation Comments Globulin (test code = Globulin) 4.4 2.7-4.2 [facility] HospitalWxhbtqjXLBXVZGLWGMV5336-52-13 08:10:00 Test Item Value Reference Range Interpretation Comments A/G Ratio (test code = A/G Ratio) 0.7 1 0.7-1.6 [facility] HospitalBrbbdksOFGCGVOCMPHG1707-21-85 08:10:00 Test Item Value Reference Range Interpretation Comments Glucose Lvl (test code = Glucose Lvl) 137 70-99 [facility] HospitalWgunfwsBAERQERILLID2870-95-46 08:10:00 Test Item Value Reference Range Interpretation Comments BUN (test code = BUN) 5 7-22 [facility] HospitalBitnylzSGYNBLNOHTDS1240-51-19 08:10:00 Test Item Value Reference Range Interpretation Comments Creatinine Lvl (test code = Creatinine 0.60 0.50-1.40 Lvl) [facility]PoguxyiGHADGQOWELCX4008-17-36 08:10:00 Test Item Value Reference Range Interpretation Comments Sodium Lvl (test code = Sodium Lvl) 138 135-145 [facility]HqazndnIGGYPYJNIYQX7299-81-65 08:10:00 Test Item Value Reference Range Interpretation Comments Potassium Lvl (test code = Potassium 3.4 3.5-5.1 Lvl) [facility]PpwoskiPQFGZKXSWUXZ6323-20-81 08:10:00 Test Item Value Reference Range Interpretation Comments Chloride Lvl (test code = Chloride Lvl) 103 95-109 [facility] MichiganLlxindzHAIDMSLOXIIA1407-58-50 08:10:00 Test Item Value Reference Range Interpretation Comments CO2 (test code = CO2) 31 24-32 [facility] MichiganTsesmxvWFXGBEAQETEM4952-11-56 08:10:00 Test Item Value Reference Range Interpretation Comments Calcium Lvl (test code = Calcium Lvl) 7.9 8.5-10.5 [facility] MichiganGyccqbpWMTAUFKOIDTJ4715-88-43 08:10:00 Test Item Value Reference Range Interpretation Comments Total Protein (test code = Total 7.4 6.4-8.4 Protein) [facility] MichiganVgsbufnVGMHYGGAPMGQ3222-01-82 08:10:00 Test Item Value Reference Range Interpretation Comments Albumin Lvl (test code = Albumin Lvl) 3.0 3.5-5.0 [facility] MichiganLxitviaJEHQGDCEMYGS3453-86-56 08:10:00 Test Item Value Reference Range Interpretation Comments ALT (test code = ALT) 34 See_Comment [Auto mated message] The system which ge nerated this result transmit yanely reference range : <=65. The reference range was not used to interpr et this result as brielle l/abnormal. [facility] MichiganPqztlzoTJELWVSFJLWT5806-39-81 08:10:00 Test Item Value Reference Range Interpretation Comments AST (test code = AST) 34 See_Comment [Auto mated message] The system which ge nerated this result transmit yanely reference range : <=37. The reference range was not used to interpr et this result as brielle l/abnormal. [facility] MichiganBeurleiWHTUVFSOWYVJ5431-78-20 08:10:00 Test Item Value Reference Range Interpretation Comments Alk Phos (test code = Alk Phos) 72 39-136 [facility] MichiganTmhrsbpNKTSPSZCBXYS9419-95-99 08:10:00 Test Item Value Reference Range Interpretation Comments Bili Total (test code = Bili Total) 0.5 0.2-1.3 [facility] MichiganXrmebomREZSIGFPHXGF2167-69-74 08:10:00 Test Item Value Reference Range Interpretation Comments eGFR (test code = eGFR) 121 [facility] HospitalRlnhplkYZFBAFBXZK8926-24-03 08:10:00 Test Item Value Reference Range Interpretation Comments Segs (test code = Segs) 76.7 45.0-75.0 [facility] HospitalPbitwweCZMNHXIQJF4556-74-01 08:10:00 Test Item Value Reference Range Interpretation Comments Lymphocytes (test code = Lymphocytes) 13.2 20.0-40.0 [facility] HospitalZwjlvfxDVUHEOHAVM3859-28-82 08:10:00 Test Item Value Reference Range Interpretation Comments Monocytes (test code = Monocytes) 8.6 2.0-12.0 [facility] HospitalDgicjtfNEORIKXKUO9386-64-91 08:10:00 Test Item Value Reference Range Interpretation Comments Eosinophils (test code = 1.5 See_Comment [A utomated message] The Eosinophils) system which ge nerated this result tra nsmitted reference range : <=4.0. The reference r matthieu was not used to int erpret this result as normal/abnormal . [facility] HospitalOclolnjCOKTOFAIVO2907-40-21 08:10:00 Test Item Value Reference Range Interpretation Comments Basophils (test code = 0.0 See_Comment [Aut omated message] The Basophils) system which ge nerated this result tra nsmitted reference range : <=1.0. The reference r matthieu was not used to int erpret this result as normal/abnormal . [facility] HospitalImjqhzlJGXWVWKMXV4168-20-21 08:10:00 Test Item Value Reference Range Interpretation Comments Neutrophils # (test code = Neutrophils 11.1 1.5-8.1 #) [facility] HospitalRttyrgyIYAEGBILMU4143-26-21 08:10:00 Test Item Value Reference Range Interpretation Comments Lymphocytes # (test code = Lymphocytes 1.9 1.0-5.5 #) [facility] HospitalBnlakbdAFDBIEUSBH6977-39-34 08:10:00 Test Item Value Reference Range Interpretation Comments Monocytes # (test code 1.2 See_Comment [Aut omated message] The = Monocytes #) system which generated this result tra nsmitted reference range : <=0.8. The reference r matthieu was not used to int erpret this result as normal/abnormal . [facility] HospitalGwixjdaUNFQVSFMKD9365-94-35 08:10:00 Test Item Value Reference Range Interpretation Comments Eosinophils # (test code 0.2 See_Comment [A utomated message] The = Eosinophils #) system whic h generated this result tra nsmitted reference range : <=0.5. The reference r matthieu was not used to int erpret this result as normal/abnormal . [facility] HospitalBcnlembQOOKEOTODD6253-61-22 08:10:00 Test Item Value Reference Range Interpretation Comments Basophils # (test code 0.0 See_Comment [Aut omated message] The = Basophils #) system which generated this result tra nsmitted reference range : <=0.2. The reference r matthieu was not used to int erpret this result as normal/abnormal . [facility] HospitalNrpwbsiJIADCNTACP3386-36-29 08:10:00 Test Item Value Reference Range Interpretation Comments Microcyte (test code = 1+ *ABN*(02/06/19 Microcyte) 2:10 AM) [facility] HospitalEhhstjbBPARGGIKIF5857-71-40 08:10:00 Test Item Value Reference Range Interpretation Comments Polychrom (test code = Moderate Polychrom) *ABN*(02/06/19 2:10 AM) [facility] HospitalVaibsqiORYXMHHRWK8144-17-87 08:10:00 Test Item Value Reference Range Interpretation Comments Large Plt (test code Moderate *ABN*(02/06/19 = Large Plt) 2:10 AM) [facility] HospitalRkiwmkvHUYXTRBWDA4064-18-40 08:10:00 Test Item Value Reference Range Interpretation Comments WBC (test code = WBC) 14.4 3.7-10.4 [facility] HospitalCgfbhbbTJJRLSSIZZ4195-40-01 08:10:00 Test Item Value Reference Range Interpretation Comments RBC (test code = RBC) 4.82 4.70-6.10 [facility] HospitalUnrbcltNENLICXZKT8631-55-97 08:10:00 Test Item Value Reference Range Interpretation Comments Hgb (test code = Hgb) 11.8 14.0-18.0 [facility] HospitalShlzueqCGYZGFRITB8867-46-29 08:10:00 Test Item Value Reference Range Interpretation Comments Hct (test code = Hct) 37.3 42.0-54.0 [facility] HospitalRqqrespCAPFJCVRMU1321-65-28 08:10:00 Test Item Value Reference Range Interpretation Comments MCV (test code = MCV) 77.4 80.0-94.0 [facility] CenterOtnbgzvCVQEJLLGGE2772-43-09 08:10:00 Test Item Value Reference Range Interpretation Comments MCH (test code = MCH) 24.5 pg 27.0-31.0 [facility]fiovgnFKBVABINZD0228-56-17 08:10:00 Test Item Value Reference Range Interpretation Comments MCHC (test code = MCHC) 31.7 32.0-36.0 [facility] CenterFabzvlgLCIFTQPGUN0880-02-42 08:10:00 Test Item Value Reference Range Interpretation Comments RDW (test code = RDW) 16.8 11.5-14.5 [facility] CenterRofddsvYQKDPSKHNW8733-56-03 08:10:00 Test Item Value Reference Range Interpretation Comments Platelet (test code = Platelet) 223 133-450 [facility] CenterFkavfkpZAWHNHNVEB3007-03-80 08:10:00 Test Item Value Reference Range Interpretation Comments MPV (test code = MPV) 9.0 7.4-10.4 [facility] [id number] 08:10:00 Test Item Value Reference Range Interpretation Comments Ca Ion WB (test code = Ca Ion WB) 1.03 1.05-1.25 [facility]PAR[facility]ID [id number] 08:10:00 Test Item Value Reference Range Interpretation Comments Ca Norm WB (test code = Ca Norm WB) 0.98 1.05-1.25 [facility]CARD[facility]AC [id number] 22:15:00 Test Item Value Reference Range Interpretation Comments Total CK (test code = Total CK) 1104 12-191 [facility] [id number] 22:15:00 Test Item Value Reference Range Interpretation Comments CK MB (test code = CK MB) 4.2 0.5-3.6 [facility] [id number] 22:15:00 Test Item Value Reference Range Interpretation Comments CK MB Index (test 0.4 1 See_Comment [Automate d message] The code = CK MB Index) system [facility] generated this result transmit yanely reference range : <=2.5. The reference range was not used to interpr et this result as brielle l/abnormal. [facility] [id number] 22:15:00 Test Item Value Reference Range Interpretation Comments U Amph Scr (test code Negative *NA*(02/05/19 = U Amph Scr) 4:15 PM) [facility] [id number] 22:15:00 Test Item Value Reference Range Interpretation Comments U Stephanie Scr (test code Negative *NA*(02/05/19 = U Stephanie Scr) 4:15 PM) [facility] [id number] 22:15:00 Test Item Value Reference Range Interpretation Comments U Benzodiaz Scr (test Negative *NA*(02/05/19 code = U Benzodiaz Scr) 4:15 PM) [facility] [id number] 22:15:00 Test Item Value Reference Range Interpretation Comments U Cocaine Scr (test Negative *NA*(02/05/19 code = U Cocaine Scr) 4:15 PM) [facility] [id number] 22:15:00 Test Item Value Reference Range Interpretation Comments U Cannab Scr (test Negative *NA*(02/05/19 code = U Cannab Scr) 4:15 PM) [facility] [id number] 22:15:00 Test Item Value Reference Range Interpretation Comments U Opiate Scr (test Negative *NA*(02/05/19 code = U Opiate Scr) 4:15 PM) [facility] [id number] 22:15:00 Test Item Value Reference Range Interpretation Comments U Phencyclidine Scr (test Negative code = U Phencyclidine *NA*(02/05/19 4:15 Scr) PM) [facility] [id number] 22:15:00 Test Item Value Reference Range Interpretation Comments U Methadone Scr (test Negative *NA*(02/05/19 code = U Methadone Scr) 4:15 PM) [facility] [id number] 22:15:00 Test Item Value Reference Range Interpretation Comments U Propoxyph Scr (test Negative *NA*(02/05/19 code = U Propoxyph Scr) 4:15 PM) [facility] [id number] 22:15:00 Test Item Value Reference Range Interpretation Comments UDS Note (test code = See Note (02/05/19 4:15 UDS Note) PM) [place] [address]2019-11-20 18:35:00 Test Item Value Reference Range Interpretation Comments Vanco Tr (test code = Vanco Tr) 15.1 [facility]15 18:35:00 Test Item Value Reference Range Interpretation Comments Vanco Tr TND (test code = Vanco Tr 1300 1 TND) [facility]2019-11-20 16:57:00 Test Item Value Reference Range Interpretation Comments Amylase Lvl (test code = Amylase Lvl) 31 25-115 [facility]2019-11-20 16:57:00 Test Item Value Reference Range Interpretation Comments Lipase Lvl (test code = Lipase Lvl) 74 73-393 [facility]2019-11-20 16:57:00 Test Item Value Reference Range Interpretation Comments Procalcitonin Lvl (test 3.13 See_Comment [Au tomated message] code = Procalcitonin Lvl) Th e system which generated this result transmitted ref erence range: <=0.10. The reference range was not used to interpr et this result as normal/abnormal . [facility]2019-11-20 16:57:00 Test Item Value Reference Range Interpretation Comments Lactic Acid Lvl (test code = Lactic 1.3 0.5-2.2 Acid Lvl) [facility]2019-11-20 16:57:00 Test Item Value Reference Range Interpretation Comments Bili Total (test code = Bili Total) 0.5 0.2-1.3 [facility]2019-11-20 16:57:00 Test Item Value Reference Range Interpretation Comments Bili Direct (test code 0.1 See_Comment [Aut omated message] The = Bili Direct) system which generated this result tra nsmitted reference range : <=0.3. The reference r matthieu was not used to int erpret this result as brielle l/abnormal. [facility]2019-11-20 16:57:00 Test Item Value Reference Range Interpretation Comments Bili Indirect (test 0.4 See_Comment [Automa yanely message] The code = Bili Indirect) system which generated this result tra nsmitted reference range : <=1.0. The reference r matthieu was not used to int erpret this result as normal/abnormal . [facility]PasezejQTNOBKAMTCFY0268-61-83 16:57:00 Test Item Value Reference Range Interpretation Comments AGAP (test code = AGAP) 11.4 10.0-20.0 [facility] MichiganShequdbRSZFRBRISBWM2120-92-10 16:57:00 Test Item Value Reference Range Interpretation Comments B/C Ratio (test code = B/C Ratio) 12 1 6-25 [facility] MichiganJpbnbmnIZGTSMNNBYSD6580-67-04 16:57:00 Test Item Value Reference Range Interpretation Comments Globulin (test code = Globulin) 4.3 2.7-4.2 [facility] MichiganGvtzocxTOOJWJMBKETA5875-37-79 16:57:00 Test Item Value Reference Range Interpretation Comments A/G Ratio (test code = A/G Ratio) 0.6 1 0.7-1.6 [facility] MichiganIclpywtQDJMCEGIPCHK9338-72-79 16:57:00 Test Item Value Reference Range Interpretation Comments Bili Total (test code = Bili Total) 0.5 0.2-1.3 [facility] MichiganLwnizskIJLYIYOIHJHN8972-78-80 16:57:00 Test Item Value Reference Range Interpretation Comments Glucose Lvl (test code = Glucose Lvl) 121 70-99 [facility] MichiganIvwelzcBJLDOOFNTDXX7427-55-87 16:57:00 Test Item Value Reference Range Interpretation Comments BUN (test code = BUN) 7 7-22 [facility] MichiganAtclfkvOLDSXYEUUEXN1750-59-72 16:57:00 Test Item Value Reference Range Interpretation Comments Creatinine Lvl (test code = Creatinine 0.60 0.50-1.40 Lvl) [facility] MichiganCacefzzZYCVKYIGHDIA1380-39-98 16:57:00 Test Item Value Reference Range Interpretation Comments Sodium Lvl (test code = Sodium Lvl) 140 135-145 [facility] MichiganEhmyyyeMFEXDBJQLJTG8837-11-68 16:57:00 Test Item Value Reference Range Interpretation Comments Potassium Lvl (test code = Potassium 4.4 3.5-5.1 Lvl) [facility] MichiganZmmwtkrNJIOQTDVBAIE3593-55-34 16:57:00 Test Item Value Reference Range Interpretation Comments Chloride Lvl (test code = Chloride Lvl) 108 95-109 [facility] MichiganEqlknlcCAUVZZEWBZVO6397-36-74 16:57:00 Test Item Value Reference Range Interpretation Comments CO2 (test code = CO2) 25 24-32 [facility] MichiganKbozuxwMHOALKNBKQHI8811-63-56 16:57:00 Test Item Value Reference Range Interpretation Comments Calcium Lvl (test code = Calcium Lvl) 7.5 8.5-10.5 [facility] MichiganQkxlsmwAFQCPGIGHFDZ4160-29-09 16:57:00 Test Item Value Reference Range Interpretation Comments Total Protein (test code = Total 7.0 6.4-8.4 Protein) [facility] MichiganTpusnpwEVDMHBZPIGTH6102-36-36 16:57:00 Test Item Value Reference Range Interpretation Comments Albumin Lvl (test code = Albumin Lvl) 2.7 3.5-5.0 [facility] MichiganJkvgsmkCNTOEYEMUNQW5654-39-60 16:57:00 Test Item Value Reference Range Interpretation Comments ALT (test code = ALT) 35 See_Comment [Auto mated message] The system which ge nerated this result transmit yanely reference range : <=65. The reference range was not used to interpr et this result as brielle l/abnormal. [facility] MichiganPjjqbfcLINDDAWIAKIH0069-01-72 16:57:00 Test Item Value Reference Range Interpretation Comments AST (test code = AST) 51 See_Comment [Auto mated message] The system which ge nerated this result transmit yanely reference range : <=37. The reference range was not used to interpr et this result as brielle l/abnormal. [facility] MichiganLkmfbmqBDSBYTENBSFF4926-31-99 16:57:00 Test Item Value Reference Range Interpretation Comments Alk Phos (test code = Alk Phos) 69 39-136 [facility] MichiganIwpmlpqQZWRAGJCDIJP0455-59-24 16:57:00 Test Item Value Reference Range Interpretation Comments eGFR (test code = eGFR) 121 [facility] HospitalLpugouvHLUJIMUMKH1333-01-79 16:57:00 Test Item Value Reference Range Interpretation Comments WBC (test code = WBC) 16.5 3.7-10.4 [facility] HospitalJhoawtxSNUKZOXCLH6059-10-24 16:57:00 Test Item Value Reference Range Interpretation Comments RBC (test code = RBC) 5.09 4.70-6.10 [facility] HospitalLaztosbWJDEZNCEDV9730-85-20 16:57:00 Test Item Value Reference Range Interpretation Comments Hgb (test code = Hgb) 12.6 14.0-18.0 [facility] HospitalXwavsanPWCQWQHGYK9015-86-36 16:57:00 Test Item Value Reference Range Interpretation Comments Hct (test code = Hct) 39.3 42.0-54.0 [facility] HospitalXvjaxpmYCWVUSUBPE6937-02-34 16:57:00 Test Item Value Reference Range Interpretation Comments MCV (test code = MCV) 77.2 80.0-94.0 [facility] HospitalYwrnfxkQYPXKEALVR2758-95-25 16:57:00 Test Item Value Reference Range Interpretation Comments MCH (test code = MCH) 24.7 pg 27.0-31.0 [facility] HospitalTeltrrzALIRKJIRBW6180-03-41 16:57:00 Test Item Value Reference Range Interpretation Comments MCHC (test code = MCHC) 32.0 32.0-36.0 [facility] HospitalIzhxzctJQLSALKEDL1988-80-90 16:57:00 Test Item Value Reference Range Interpretation Comments RDW (test code = RDW) 17.3 11.5-14.5 [facility] HospitalPbhetgiDWWBHNNFLM1087-66-30 16:57:00 Test Item Value Reference Range Interpretation Comments Platelet (test code = Platelet) 186 133-450 [facility] HospitalWvxwbwoTMIEMHXREZ1867-91-33 16:57:00 Test Item Value Reference Range Interpretation Comments MPV (test code = MPV) 8.4 7.4-10.4 [facility] HospitalVivlggrLOTPBVARPP4470-06-68 16:57:00 Test Item Value Reference Range Interpretation Comments Segs (test code = Segs) 74.6 45.0-75.0 [facility] HospitalUqnuefsYPVJYJTOSH8070-39-70 16:57:00 Test Item Value Reference Range Interpretation Comments Lymphocytes (test code = Lymphocytes) 13.0 20.0-40.0 [facility] HospitalQtybciqPMZPNWQZSX9531-61-35 16:57:00 Test Item Value Reference Range Interpretation Comments Monocytes (test code = Monocytes) 11.2 2.0-12.0 [facility] HospitalMrjatyaKBAVPFJZQO5711-07-82 16:57:00 Test Item Value Reference Range Interpretation Comments Eosinophils (test code = 0.3 See_Comment [A utomated message] The Eosinophils) system which ge nerated this result tra nsmitted reference range : <=4.0. The reference r matthieu was not used to int erpret this result as normal/abnormal . [facility] HospitalPusbcmnIPJACZWVLU4701-76-58 16:57:00 Test Item Value Reference Range Interpretation Comments Basophils (test code = 0.9 See_Comment [Aut omated message] The Basophils) system which ge nerated this result tra nsmitted reference range : <=1.0. The reference r matthieu was not used to int erpret this result as normal/abnormal . [facility] HospitalOgsrdnjIQAIMZPBMG3929-86-76 16:57:00 Test Item Value Reference Range Interpretation Comments Neutrophils # (test code = Neutrophils 12.3 1.5-8.1 #) [facility] HospitalKdewqayIBKLBKIFHC8300-55-57 16:57:00 Test Item Value Reference Range Interpretation Comments Lymphocytes # (test code = Lymphocytes 2.1 1.0-5.5 #) [facility] HospitalAncnklaNEBWCZFPOR6547-07-05 16:57:00 Test Item Value Reference Range Interpretation Comments Monocytes # (test code 1.9 See_Comment [Aut omated message] The = Monocytes #) system which generated this result tra nsmitted reference range : <=0.8. The reference r matthieu was not used to int erpret this result as normal/abnormal . [facility] HospitalPdcpjdtSGHXVBNRCL5696-80-27 16:57:00 Test Item Value Reference Range Interpretation Comments Eosinophils # (test code 0.1 See_Comment [A utomated message] The = Eosinophils #) system whic h generated this result tra nsmitted reference range : <=0.5. The reference r matthieu was not used to int erpret this result as normal/abnormal . [facility] HospitalMbysucrNRQPFHNJHC1014-38-27 16:57:00 Test Item Value Reference Range Interpretation Comments Basophils # (test code 0.1 See_Comment [Aut omated message] The = Basophils #) system which generated this result tra nsmitted reference range : <=0.2. The reference r matthieu was not used to int erpret this result as normal/abnormal . [facility] HospitalCwgzcmsWBQBBSRMQQ5639-43-50 16:57:00 Test Item Value Reference Range Interpretation Comments Microcyte (test code = 1+ *ABN*(02/05/19 Microcyte) 10:57 AM) [facility]2019-11-20 10:15:00 Test Item Value Reference Range Interpretation Comments Magnesium Lvl (test code = Magnesium 1.8 1.8-2.4 Lvl) [facility]2019-11-20 10:15:00 Test Item Value Reference Range Interpretation Comments Phosphorus (test code = Phosphorus) 2.0 2.5-4.5 [facility]KzndcfgBNXXBSRVSN3615-10-59 10:15:00 Test Item Value Reference Range Interpretation Comments Large Plt (test code Moderate *ABN*(02/05/19 = Large Plt) 4:15 AM) [facility] HospitalFrsrlfoBTRFUEZXOP2172-62-31 10:15:00 Test Item Value Reference Range Interpretation Comments Hep Bs Ag (test code Negative *NA*(02/05/19 = Hep Bs Ag) 4:15 AM) [facility] HospitalDiufgezFUWABQEMCJ1751-85-24 10:15:00 Test Item Value Reference Range Interpretation Comments Hep B Core IgM (test Negative *NA*(02/05/19 code = Hep B Core 4:15 AM) IgM) [facility] HospitalYqdgqapEFNCQXDZAD8535-54-21 10:15:00 Test Item Value Reference Range Interpretation Comments Hep C Ab (test code = Negative *NA*(02/05/19 Hep C Ab) 4:15 AM) [facility] HospitalPhjyjgwSNMVPUTUVC4711-99-19 10:15:00 Test Item Value Reference Range Interpretation Comments Hep A IgM (test code Negative *NA*(02/05/19 = Hep A IgM) 4:15 AM) [facility] [id number] 10:15:00 Test Item Value Reference Range Interpretation Comments Ca Ion WB (test code = Ca Ion WB) 0.96 1.05-1.25 [facility]2019-11-20 10:15:00 Test Item Value Reference Range Interpretation Comments Ca Norm WB (test code = Ca Norm WB) 0.97 1.05-1.25 [facility]annBACT[facility] - [id number] 22:20:00 Test Item Value Reference Range Interpretation Comments Strep pneumoniae Ag Negative (02/04/19 (test code = Strep 4:20 PM) pneumoniae Ag) [facility]BACT[facility] - [id number] 22:20:00 Test Item Value Reference Range Interpretation Comments Source Strep (test code Urine *NA*(02/04/19 = Source Strep) 4:20 PM) [facility] HospitalEeblzgeAEJVPDIXNH8434-79-61 22:20:00 Test Item Value Reference Range Interpretation Comments HIV Ag/Ab 4th Gen Negative *NA*(02/04/19 (test code = HIV 4:20 PM) Ag/Ab 4th Gen) [facility]2019-11-19 22:20:00 Test Item Value Reference Range Interpretation Comments Source Respiratory Nasophrngl Swb Panel PCR (test code = *NA*(02/04/19 4:20 PM) Source Respiratory Panel PCR) [facility]2019-11-19 22:20:00 Test Item Value Reference Range Interpretation Comments Influenza A PCR (test Negative *NA*(02/04/19 code = Influenza A PCR) 4:20 PM) [facility]2019-11-19 22:20:00 Test Item Value Reference Range Interpretation Comments Influenza B PCR (test Negative *NA*(02/04/19 code = Influenza B PCR) 4:20 PM) [facility]2019-11-19 22:20:00 Test Item Value Reference Range Interpretation Comments RSV PCR (test code = Negative *NA*(02/04/19 RSV PCR) 4:20 PM) [facility]2019-11-19 22:20:00 Test Item Value Reference Range Interpretation Comments Source Parainfluenza Nasophrngl Swb (test code = Source *NA*(02/04/19 4:20 Parainfluenza) PM) [facility]2019-11-19 22:20:00 Test Item Value Reference Range Interpretation Comments Parainfluenza type 1 Negative (test code = *NA*(02/04/19 4:20 Parainfluenza type 1) PM) [facility]2019-11-19 22:20:00 Test Item Value Reference Range Interpretation Comments Parainfluenza type 2 Negative (test code = *NA*(02/04/19 4:20 Parainfluenza type 2) PM) [facility]2019-11-19 22:20:00 Test Item Value Reference Range Interpretation Comments Parainfluenza type 3 Negative (test code = *NA*(02/04/19 4:20 Parainfluenza type 3) PM) [facility]2019-11-19 22:20:00 Test Item Value Reference Range Interpretation Comments Parainfluenza type 4 Negative (test code = *NA*(02/04/19 4:20 Parainfluenza type 4) PM) [facility]BA[facility] - [id number] 22:14:00 Test Item Value Reference Range Interpretation Comments Source Strep (test code Cerebral Spinal Fluid = Source Strep) [facility]BA[facility] - [id number] 22:14:00 Test Item Value Reference Range Interpretation Comments Strep pneumoniae Ag Negative (02/04/19 (test code = Strep 4:14 PM) pneumoniae Ag) [facility]2019-11-19 22:14:00 Test Item Value Reference Range Interpretation Comments Tube Num CSF (test code = Tube Num CSF) 1 1 [facility]2019-11-19 22:14:00 Test Item Value Reference Range Interpretation Comments Color CSF (test code Colorless (02/04/19 4:14 = Color CSF) PM) [facility]2019-11-19 22:14:00 Test Item Value Reference Range Interpretation Comments Clarity CSF (test code = Clear (02/04/19 4:14 Clarity CSF) PM) [facility]2019-11-19 22:14:00 Test Item Value Reference Range Interpretation Comments Supernat CSF (test Colorless (02/04/19 code = Supernat CSF) 4:14 PM) [facility]2019-11-19 22:14:00 Test Item Value Reference Range Interpretation Comments Nucleated Cells CSF 1 See_Comment [Automa yanely message] The (test code = Nucleated syste m which generated Cells CSF) this result tra nsmitted reference range : <=53. The reference r matthieu was not used to int erpret this result as normal/abnormal . [facility]2019-11-19 22:14:00 Test Item Value Reference Range Interpretation Comments RBC CSF (test code = 53 See_Comment [Autom ated message] The RBC CSF) system which ge nerated this result transmit yanely reference range : <=03. The reference range was not used to interpr et this result as brielle l/abnormal. [facility]2019-11-19 22:14:00 Test Item Value Reference Range Interpretation Comments Glucose CSF (test code = Glucose CSF) 105 45-80 [facility]2019-11-19 22:14:00 Test Item Value Reference Range Interpretation Comments Protein CSF (test code = Protein CSF) 56 15-45 [facility] [id number] 22:14:00 Test Item Value Reference Range Interpretation Comments Tube Num CSF (test code = Tube Num CSF) 4 1 [facility] [id number] 22:14:00 Test Item Value Reference Range Interpretation Comments Color CSF (test code Colorless (02/04/19 4:14 = Color CSF) PM) [facility] [id number] 22:14:00 Test Item Value Reference Range Interpretation Comments Clarity CSF (test code = Clear (02/04/19 4:14 Clarity CSF) PM) [facility] [id number] 22:14:00 Test Item Value Reference Range Interpretation Comments Supernat CSF (test Colorless (02/04/19 code = Supernat CSF) 4:14 PM) [facility]2019-11-19 22:14:00 Test Item Value Reference Range Interpretation Comments Nucleated Cells CSF 1 See_Comment [Automa yanely message] The (test code = Nucleated syste m which generated Cells CSF) this result tra nsmitted reference range : <=53. The reference r matthieu was not used to int erpret this result as normal/abnormal . [facility] [id number] 22:14:00 Test Item Value Reference Range Interpretation Comments RBC CSF (test code = 4 See_Comment [Autom ated message] The RBC CSF) system which ge nerated this result transmit yanely reference range : <=03. The reference range was not used to interpr et this result as brielle l/abnormal. [facility] [id number] 22:14:00 Test Item Value Reference Range Interpretation Comments Lactic Acid CSF (test code = Lactic 2.3 0.6-2.2 Acid CSF) [facility]FUN[facility] - [id number] 22:14:00 Test Item Value Reference Range Interpretation Comments Crypto Ag CSF (test Negative (02/04/19 4:14 code = Crypto Ag CSF) PM) [facility] Hos[id number] 22:14:00 Test Item Value Reference Range Interpretation Comments VDRL Scr CSF (test Non Reactive (02/04/19 code = VDRL Scr CSF) 4:14 PM) [facility]MOLECULAR [id number] 22:14:00 Test Item Value Reference Range Interpretation Comments Source HSV (test code = Cerebral Spinal Fluid Source HSV) [facility]MO[facility] [id number] 22:14:00 Test Item Value Reference Range Interpretation Comments HSV 1 by PCR (test Negative (02/04/19 4:14 code = HSV 1 by PCR) PM) [facility]annMOLIFE[facility] HEALTHULAR [id number] 22:14:00 Test Item Value Reference Range Interpretation Comments HSV 2 by PCR (test Negative (02/04/19 4:14 code = HSV 2 by PCR) PM) [facility]annMOLECULAR [id number] 22:14:00 Test Item Value Reference Range Interpretation Comments Source VZV (test code = Cerebral Spinal Fluid Source VZV) [facility] [id number] 22:14:00 Test Item Value Reference Range Interpretation Comments VZV PCR (test code = Negative (02/04/19 4:14 VZV PCR) PM) [facility] HospitalannVIRAL - [id number] 22:14:00 Test Item Value Reference Range Interpretation Comments Enterovirus PCR CSF Negative (02/04/19 (test code = Enterovirus 4:14 PM) PCR CSF) [facility] HospitalannGram Stain [id number] 22:14:00 Test Item Value Reference Range Interpretation Comments Gram Stain Report Rare WBC's No Organisms (test code = Gram Seen Stain Report) [facility] w/Gram [id number] 22:14:00 Test Item Value Reference Range Interpretation Comments Culture: CSF w/Gram Stain (test No Growth code = Culture: CSF w/Gram Stain) [facility] HospitalQbyfmouBYJBXMHYVC6570-04-90 19:22:00 Test Item Value Reference Range Interpretation Comments PTT (test code = PTT) 26.9 s 22.9-35.8 [facility] HospitalannCARDIAC [id number] 18:26:00 Test Item Value Reference Range Interpretation Comments Troponin-I (test code no gt See_Comment [Auto mated message] The = Troponin-I) system which g enerated this result transmit yanely reference range : <=0.40. The reference r matthieu was not used to interpr et this result as brielle l/abnormal. [facility] [id number] 18:26:00 Test Item Value Reference Range Interpretation Comments UA Turbidity (test code = Clear (02/04/19 UA Turbidity) 12:26 PM) [facility] AND [id number] 18:26:00 Test Item Value Reference Range Interpretation Comments UA Spec Grav (test code = UA Spec 1.030 1 Grav) [facility] AND [id number] 18:26:00 Test Item Value Reference Range Interpretation Comments UA pH (test code = UA pH) 5.0 1 5.0-8.0 [facility] AND [id number] 18:26:00 Test Item Value Reference Range Interpretation Comments UA Protein (test code = UA Negative mg/dL Protein) [facility] AND [id number] 18:26:00 Test Item Value Reference Range Interpretation Comments UA Glucose (test code = UA Negative mg/dL Glucose) [facility] AND [id number] 18:26:00 Test Item Value Reference Range Interpretation Comments UA Ketones (test code = UA Trace mg/dL Ketones) [facility] AND [id number] 18:26:00 Test Item Value Reference Range Interpretation Comments UA Bili (test code = Negative *NA*(02/04/19 UA Bili) 12:26 PM) [facility] AND [id number] 18:26:00 Test Item Value Reference Range Interpretation Comments UA Blood (test code = Moderate *ABN*(02/04/19 UA Blood) 12:26 PM) [facility] AND [id number] 18:26:00 Test Item Value Reference Range Interpretation Comments UA Nitrite (test code Negative (02/04/19 = UA Nitrite) 12:26 PM) [facility] AND [id number] 18:26:00 Test Item Value Reference Range Interpretation Comments UA Leuk Est (test Negative (02/04/19 12:26 code = UA Leuk Est) PM) [facility] AND [id number] 18:26:00 Test Item Value Reference Range Interpretation Comments UA Sq Epi (test code = UA Sq Occasional /LPF Epi) [facility] AND [id number] 18:26:00 Test Item Value Reference Range Interpretation Comments UA WBC (test code = 1 See_Comment [Automa yanely message] The UA WBC) system which ge nerated this result transmit yanely reference range : <=5. The reference range was not used to interpr et this result as brielle l/abnormal. [facility] [id number] 18:26:00 Test Item Value Reference Range Interpretation Comments UA RBC (test code = 2 See_Comment [Automa yanely message] The UA RBC) system which ge nerated this result transmit yanely reference range : <=2. The reference range was not used to interpr et this result as brielle l/abnormal. [facility] [id number] 18:26:00 Test Item Value Reference Range Interpretation Comments UA Bacteria (test code = UA Occasional /HPF Bacteria) [facility] AND [id number] 18:26:00 Test Item Value Reference Range Interpretation Comments UA Mucus (test code = UA Mucus) Few /LPF [facility] AND [id number] 18:26:00 Test Item Value Reference Range Interpretation Comments UA Color (test code = UA Color) Ltyellow [facility] AND [id number] 18:26:00 Test Item Value Reference Range Interpretation Comments UA Urobilinogen (test code = UA no gt 0.1-1.0 Urobilinogen) [facility] [id number] 12:40:00 Test Item Value Reference Range Interpretation Comments Troponin-I (test code no gt See_Comment [Auto mated message] The = Troponin-I) system which g enerated this result transmit yanely reference range : <=0.40. The reference r matthieu was not used to interpr et this result as brielle l/abnormal. [facility]CHE[facility] [id number] 12:40:00 Test Item Value Reference Range Interpretation Comments Lactic Acid Lvl (test code = Lactic 1.8 0.5-2.2 Acid Lvl) [facility]BACT[facility] - [id number] 09:08:00 Test Item Value Reference Range Interpretation Comments MRSA by PCR (test Positive 2*ABN*(02/04/19 code = MRSA by PCR) 3:08 AM) [facility] [id number] 09:08:00 Test Item Value Reference Range Interpretation Comments Ammonia (test code = Ammonia) 30.0 [facility] [id number] 09:08:00 Test Item Value Reference Range Interpretation Comments Lactic Acid Lvl (test code = Lactic 2.5 0.5-2.2 Acid Lvl) [facility]2019-11-19 09:08:00 Test Item Value Reference Range Interpretation Comments Procalcitonin Lvl (test 0.25 See_Comment [Au tomated message] code = Procalcitonin Lvl) Th e system which generated this result transmitted ref erence range: <=0.10. The reference range was not used to interpr et this result as normal/abnormal . [facility]2019-11-19 09:08:00 Test Item Value Reference Range Interpretation Comments Bili Direct (test code no gt See_Comment [Aut omated message] The = Bili Direct) system which generated this result tra nsmitted reference range : <=0.3. The reference r matthieu was not used to int erpret this result as brielle l/abnormal. [facility]MVOMZHSHYB1313-29-[facility] 09:08:00 Test Item Value Reference Range Interpretation Comments INR (test code = INR) 1.06 1 0.85-1.17 [facility] HospitalYfnfvhhRXQNFOXOQE0568-23-28 09:08:00 Test Item Value Reference Range Interpretation Comments PT (test code = PT) 13.6 s 12.0-14.7 [facility] HospitalSdnqmjuHRZYXRWMWR9732-72-77 09:08:00 Test Item Value Reference Range Interpretation Comments PTT (test code = PTT) 35.4 s 22.9-35.8 [facility] Hospit[id number] 09:08:00 Test Item Value Reference Range Interpretation Comments Plt Morph (test code = Normal (02/04/19 3:08 Plt Morph) AM) [facility]FdnhjfuFUJORC1668-93-12 09:08:00 Test Item Value Reference Range Interpretation Comments CHD Risk (test code = CHD Risk) 6.38 1 4.00-7.30 [facility] CenterZvcrwsuXVHEUU6866-15-58 09:08:00 Test Item Value Reference Range Interpretation Comments Trig (test code = Trig) 169 [facility] [id number] 09:08:00 Test Item Value Reference Range Interpretation Comments Chol (test code = Chol) 217 [facility] CenterPbrlpagBZJHTW7182-65-16 09:08:00 Test Item Value Reference Range Interpretation Comments HDL (test code = HDL) 34 [facility] [id number] 09:08:00 Test Item Value Reference Range Interpretation Comments LDL (Calculated) (test code = LDL 149 (Calculated)) [facility] HospitalNtunzaqLYFZRW6890-28-51 09:08:00 Test Item Value Reference Range Interpretation Comments VLDL (test code = VLDL) 34 1 [facility] [id number] 09:08:00 Test Item Value Reference Range Interpretation Comments Hgb A1C (test code = Hgb A1C) 7.3 [facility]xtblhqVVAXYSCAXGQT9218-41-13 06:21:00 Test Item Value Reference Range Interpretation Comments Chloride Lvl (test code = Chloride Lvl) 105 95-109 [facility] MichiganThzlkdgHHMAGNZDKLXH4679-90-46 06:21:00 Test Item Value Reference Range Interpretation Comments Sodium Lvl (test code = Sodium Lvl) 143 135-145 [facility] MichiganFuzzykrLCCOXYJDSOFL9360-77-28 06:21:00 Test Item Value Reference Range Interpretation Comments Potassium Lvl (test code = Potassium 4.0 3.5-5.1 Lvl) [facility]EaeaeevYXXUXLWANEWC7694-66-47 06:21:00 Test Item Value Reference Range Interpretation Comments Calcium Lvl (test code = Calcium Lvl) 8.9 8.5-10.5 [facility] MichiganNwzblumGMAHDKZINRPZ5642-35-85 06:21:00 Test Item Value Reference Range Interpretation Comments eGFR (test code = eGFR) 117 [facility] MichiganBurydsrNNDRNEPPHRLK9477-36-18 06:21:00 Test Item Value Reference Range Interpretation Comments Creatinine Lvl (test code = Creatinine 0.65 0.50-1.40 Lvl) [facility] MichiganVagdereQLMFIQORMIGF9694-99-64 06:21:00 Test Item Value Reference Range Interpretation Comments BUN (test code = BUN) 9 7-22 [facility] MichiganDcylgyoOYDLJIPQBHBV8129-27-17 06:21:00 Test Item Value Reference Range Interpretation Comments Glucose Lvl (test code = Glucose Lvl) 138 70-99 [facility] MichiganNyzqzblTYPVVSWGPOVO5350-14-56 06:21:00 Test Item Value Reference Range Interpretation Comments CO2 (test code = CO2) 29 24-32 [facility] MichiganZcwlopeFFXODONCXRZB6566-15-14 06:21:00 Test Item Value Reference Range Interpretation Comments AGAP (test code = AGAP) 13.0 10.0-20.0 [facility] HospitalOtyvnmxQTZXGXUKSS6384-84-75 06:21:00 Test Item Value Reference Range Interpretation Comments RDW (test code = RDW) 18.4 11.5-14.5 [facility] HospitalHfhnfviDEDBBMYAUE4827-47-55 06:21:00 Test Item Value Reference Range Interpretation Comments MCHC (test code = MCHC) 31.9 32.0-36.0 [facility] HospitalXsuugdiNUDTJCCAVD4354-30-69 06:21:00 Test Item Value Reference Range Interpretation Comments MCH (test code = MCH) 24.2 pg 27.0-31.0 [facility] HospitalYmjowffJSARHXVDNN2199-61-95 06:21:00 Test Item Value Reference Range Interpretation Comments MCV (test code = MCV) 75.8 80.0-94.0 [facility] HospitalZwroedrCYMVUYFGOA7603-46-46 06:21:00 Test Item Value Reference Range Interpretation Comments Hct (test code = Hct) 42.3 42.0-54.0 [facility] HospitalMuruzgmWEZTPXTDSZ1400-42-97 06:21:00 Test Item Value Reference Range Interpretation Comments Hgb (test code = Hgb) 13.5 14.0-18.0 [facility] HospitalOrfqujdJEUZQAQPIV7239-02-43 06:21:00 Test Item Value Reference Range Interpretation Comments RBC (test code = RBC) 5.58 4.70-6.10 [facility] HospitalZxxsjkqSMDCGZILDX5043-87-22 06:21:00 Test Item Value Reference Range Interpretation Comments WBC (test code = WBC) 11.3 3.7-10.4 [facility] HospitalQaegafyUUGONOJZMK0419-46-74 06:21:00 Test Item Value Reference Range Interpretation Comments Platelet (test code = Platelet) 301 133-450 [facility] HospitalCubsvuqOBAPKEJGUY7108-89-43 06:21:00 Test Item Value Reference Range Interpretation Comments MPV (test code = MPV) 8.5 7.4-10.4 [facility] HospitalQxtrukuPALJXOQHUB9637-83-33 06:21:00 Test Item Value Reference Range Interpretation Comments Eosinophils # (test code 0.3 See_Comment [A utomated message] The = Eosinophils #) system whic h generated this result tra nsmitted reference range : <=0.5. The reference r matthieu was not used to int erpret this result as normal/abnormal . [facility] HospitalPhdryhhJLYHGRQGKG8662-58-50 06:21:00 Test Item Value Reference Range Interpretation Comments Basophils # (test code 0.1 See_Comment [Aut omated message] The = Basophils #) system which generated this result tra nsmitted reference range : <=0.2. The reference r matthieu was not used to int erpret this result as normal/abnormal . [facility] HospitalLjvjrvcKPZWIVQSVR3261-42-43 06:21:00 Test Item Value Reference Range Interpretation Comments Microcyte (test code = 1+ *ABN*(09/24/18 1:21 Microcyte) AM) [facility] HospitalBwavcogEIULJHDUXZ3775-57-71 06:21:00 Test Item Value Reference Range Interpretation Comments Monocytes # (test code 1.2 See_Comment [Aut omated message] The = Monocytes #) system which generated this result tra nsmitted reference range : <=0.8. The reference r matthieu was not used to int erpret this result as normal/abnormal . [facility] HospitalMercoknRGQZSUBVKV7569-88-98 06:21:00 Test Item Value Reference Range Interpretation Comments Eosinophils (test code = 2.9 See_Comment [A utomated message] The Eosinophils) system which ge nerated this result tra nsmitted reference range : <=4.0. The reference r matthieu was not used to int erpret this result as normal/abnormal . [facility] HospitalDkunkuoUVXHMLURMD6478-63-84 06:21:00 Test Item Value Reference Range Interpretation Comments Basophils (test code = 0.6 See_Comment [Aut omated message] The Basophils) system which ge nerated this result tra nsmitted reference range : <=1.0. The reference r matthieu was not used to int erpret this result as normal/abnormal . [facility] HospitalIsxsixjWMIEQKOGUW4811-38-78 06:21:00 Test Item Value Reference Range Interpretation Comments Neutrophils # (test code = Neutrophils 7.3 1.5-8.1 #) [facility] HospitalHnxrpxcCVUUAPPXCA0585-83-05 06:21:00 Test Item Value Reference Range Interpretation Comments Lymphocytes # (test code = Lymphocytes 2.3 1.0-5.5 #) [facility] HospitalGzfixioLFNYUKKDPR2463-59-66 06:21:00 Test Item Value Reference Range Interpretation Comments Monocytes (test code = Monocytes) 10.7 2.0-12.0 [facility] HospitalNxgmxktPOHIWCSBAC9572-91-92 06:21:00 Test Item Value Reference Range Interpretation Comments Lymphocytes (test code = Lymphocytes) 20.6 20.0-40.0 [facility] HospitalZlruuyzIULLGDVHYS4328-61-77 06:21:00 Test Item Value Reference Range Interpretation Comments Segs (test code = Segs) 65.2 45.0-75.0 [facility] HospitalPpotasmJKFSNV4629-08-92 06:21:00 Test Item Value Reference Range Interpretation Comments CHD Risk (test code = CHD Risk) 4.53 1 4.00-7.30 [facility] HospitalQlufynsDGMJGL9713-40-92 06:21:00 Test Item Value Reference Range Interpretation Comments Chol (test code = Chol) 154 [facility] CenterZoiuoeoSHOORK9178-93-20 06:21:00 Test Item Value Reference Range Interpretation Comments Trig (test code = Trig) 190 [facility] CenterRjrqjrdSKFYIK2003-63-25 06:21:00 Test Item Value Reference Range Interpretation Comments VLDL (test code = VLDL) 38 1 [facility] CenterNqqossiMBLKGE8189-74-57 06:21:00 Test Item Value Reference Range Interpretation Comments HDL (test code = HDL) 34 [facility] HospitalCaxweowPNSLZQ4559-42-95 06:21:00 Test Item Value Reference Range Interpretation Comments LDL (Calculated) (test code = LDL 82 (Calculated)) [facility] SGASTYWXL3863-09-44 06:21:00 Test Item Value Reference Range Interpretation Comments Hgb A1C (test code = Hgb A1C) 6.6 [facility] [id number] 06:16:00 Test Item Value Reference Range Interpretation Comments ALT (test code = ALT) 27 See_Comment [Auto mated message] The system which ge nerated this result transmit yanely reference range : <=65. The reference range was not used to interpr et this result as brielle l/abnormal. [facility] [employer] [id number] 06:16:00 Test Item Value Reference Range Interpretation Comments AST (test code = AST) 13 See_Comment [Auto mated message] The system which ge nerated this result transmit yanely reference range : <=37. The reference range was not used to interpr et this result as brielle l/abnormal. [facility] [employer] [id number] 06:16:00 Test Item Value Reference Range Interpretation Comments Bili Direct (test code 0.1 See_Comment [Aut omated message] The = Bili Direct) system which generated this result tra nsmitted reference range : <=0.3. The reference r matthieu was not used to int erpret this result as brielle l/abnormal. [facility]2019-07-09 06:16:00 Test Item Value Reference Range Interpretation Comments Total Protein (test code = Total 7.5 6.4-8.4 Protein) [facility]2019-07-09 06:16:00 Test Item Value Reference Range Interpretation Comments Globulin (test code = Globulin) 4.2 2.7-4.2 [facility]2019-07-09 06:16:00 Test Item Value Reference Range Interpretation Comments A/G Ratio (test code = A/G Ratio) 0.8 1 0.7-1.6 [facility]2019-07-09 06:16:00 Test Item Value Reference Range Interpretation Comments Albumin Lvl (test code = Albumin Lvl) 3.3 3.5-5.0 [facility]2019-07-09 06:16:00 Test Item Value Reference Range Interpretation Comments Alk Phos (test code = Alk Phos) 98 39-136 [facility]2019-07-09 06:16:00 Test Item Value Reference Range Interpretation Comments Bili Total (test code = Bili Total) 1.0 0.2-1.3 [facility]2019-07-09 06:16:00 Test Item Value Reference Range Interpretation Comments Bili Indirect (test 0.9 See_Comment [Automa yanely message] The code = Bili Indirect) system which generated this result tra nsmitted reference range : <=1.0. The reference r matthieu was not used to int erpret this result as normal/abnormal . [facility] HospitalEbdzxgfCXSWGMLHWY0710-53-83 06:15:00 Test Item Value Reference Range Interpretation Comments PTT (test code = PTT) 32.1 s 22.9-35.8 [facility] HospitalHtsxykiXAIEKISBMT2213-06-91 06:15:00 Test Item Value Reference Range Interpretation Comments INR (test code = INR) 0.98 1 0.85-1.17 [facility] HospitalPrefvscTBFJDUPEBC1017-64-70 06:15:00 Test Item Value Reference Range Interpretation Comments PT (test code = PT) 12.8 s 12.0-14.7 [facility]2019-07-09 05:50:00 Test Item Value Reference Range Interpretation Comments UA Ketones (test code = UA Ketones) Negative [facility] AND [id number] 05:50:00 Test Item Value Reference Range Interpretation Comments UA Urobilinogen (test code = UA <=1.0 mg/dL 0.1-1.0 Urobilinogen) [facility] AND [id number] 05:50:00 Test Item Value Reference Range Interpretation Comments UA Sq Epi (test code = UA Sq Epi) None Seen [facility] AND [id number] 05:50:00 Test Item Value Reference Range Interpretation Comments UA RBC (test code = 1 See_Comment [Automa yanely message] The UA RBC) system which ge nerated this result transmit yanely reference range : <=2. The reference range was not used to interpr et this result as brielle l/abnormal. [facility] AND [id number] 05:50:00 Test Item Value Reference Range Interpretation Comments UA WBC (test code = 1 See_Comment [Automa yanely message] The UA WBC) system which ge nerated this result transmit yanely reference range : <=5. The reference range was not used to interpr et this result as brielle l/abnormal. [facility] AND [id number] 05:50:00 Test Item Value Reference Range Interpretation Comments UA Color (test code = Light Yellow UA Color) *NA*(09/24/18 12:50 AM) [facility] AND [id number] 05:50:00 Test Item Value Reference Range Interpretation Comments UA Spec Grav (test code = UA Spec 1.019 1 Grav) [facility] AND [id number] 05:50:00 Test Item Value Reference Range Interpretation Comments UA Protein (test code = UA Negative mg/dL Protein) [facility] AND [id number] 05:50:00 Test Item Value Reference Range Interpretation Comments UA pH (test code = UA pH) 8.0 1 5.0-8.0 [facility] AND [id number] 05:50:00 Test Item Value Reference Range Interpretation Comments UA Amorph Danyelle (test code = Occasional /HPF UA Amorph Danyelle) [facility] AND [id number] 05:50:00 Test Item Value Reference Range Interpretation Comments UA Bili (test code = Negative *NA*(09/24/18 UA Bili) 12:50 AM) [facility] AND [id number] 05:50:00 Test Item Value Reference Range Interpretation Comments UA Blood (test code = Negative (09/24/18 12:50 UA Blood) AM) [facility] AND [id number] 05:50:00 Test Item Value Reference Range Interpretation Comments UA Glucose (test code = UA Negative mg/dL Glucose) [facility] AND [id number] 05:50:00 Test Item Value Reference Range Interpretation Comments UA Leuk Est (test Negative (09/24/18 12:50 code = UA Leuk Est) AM) [facility] AND [id number] 05:50:00 Test Item Value Reference Range Interpretation Comments UA Nitrite (test code Negative (09/24/18 12:50 = UA Nitrite) AM) [facility] AND [id number] 05:50:00 Test Item Value Reference Range Interpretation Comments UA Turbidity (test code = Clear (09/24/18 12:50 UA Turbidity) AM) [facility] [id number] 06:57:00 Test Item Value Reference Range Interpretation Comments POC-GLUCOSE METER 117 mg/dL 70-110 H TESTED AT [place] [address] ([facility]) (test code = [facility] 1538) [id number] POCT-GLUCOSE [id number] 16:25:00 Test Item Value Reference Range Interpretation Comments POC-GLUCOSE METER 88 mg/dL 70-110 TESTED AT [place] [address] ([facility]) (test code = [facility] [address] 1538) POCT-GLUCOSE [id number] 06:12:00 Test Item Value Reference Range Interpretation Comments POC-GLUCOSE METER 91 mg/dL 70-110 TESTED AT [place] [address] ([facility]) (test code = [facility] [address] 1538) POCT-GLUCOSE [id number] 16:29:00 Test Item Value Reference Range Interpretation Comments POC-GLUCOSE METER 94 mg/dL 70-110 TESTED AT [place] [address] ([facility]) (test code = [facility] [address] 1538) POCT-GLUCOSE [id number] 06:27:00 Test Item Value Reference Range Interpretation Comments POC-GLUCOSE METER 90 mg/dL 70-110 TESTED AT [place] [address] ([facility]) (test code = DELVIN Benson [facility] [id number] 1538) POCT-GLUCOSE [id number] 16:45:00 Test Item Value Reference Range Interpretation Comments POC-GLUCOSE METER 88 mg/dL 70-110 TESTED AT [place] [address] ([facility]) (test code = [facility] [place] Marcelino [facility] [address] 1538) POCT-GLUCOSE [id number] 12:04:00 Test Item Value Reference Range Interpretation Comments POC-GLUCOSE METER 73 mg/dL 70-110 TESTED AT [place] [address] ([facility]) (test code = [facility] [place] Marcelino [facility] [address] 1538) POCT-GLUCOSE [id number] 06:53:00 Test Item Value Reference Range Interpretation Comments POC-GLUCOSE METER 112 mg/dL 70-110 H TESTED AT [place] [address] ([facility]) (test code = [facility] [place] Marcelino [facility] 1538) [id number] POCT-GLUCOSE [id number] 17:08:00 Test Item Value Reference Range Interpretation Comments POC-GLUCOSE METER 96 mg/dL 70-110 TESTED AT [place] [address] ([facility]) (test code = [facility] [place] Marcelino [facility] [address] 1538) POCT-GLUCOSE [id number] 11:10:00 Test Item Value Reference Range Interpretation Comments POC-GLUCOSE METER 98 mg/dL 70-110 TESTED AT [place] [address] ([facility]) (test code = [facility] [place] Marcelino [facility] [id number] 1538) BASIC METABOLIC [id number] 07:10:00 Test Item Value Reference Range Interpretation [...] PATIEN TS. CBC W/PLT COUNT & AUTO [id number] 06:30:00 Test Item Value Reference Range Interpretation [...] LYMPHOCYTES ABSOLUTE COUNT 3.35 K/ L 1.32-3.57 (AKER) (test code = 414) MONOCYTES ABSOLUTE COUNT (BEAKER) 0.86 K/ L 0.30-0.82 H (test code = 415) EOSINOPHILS ABSOLUTE COUNT 0.25 K/ L 0.04-0.54 (AKER) (test code = 416) BASOPHILS ABSOLUTE COUNT (AKER) 0.06 K/ L 0.01-0.08 (test code = 417) IMMATURE GRANULOCYTES-RELATIVE 1 % 0-1 PERCENT ([facility]) (test code = 2801) POCT-GLUCOSE [id number] 06:11:00 Test Item Value Reference Range Interpretation Comments POC-GLUCOSE METER 110 mg/dL 70-110 TESTED AT [place] [address] ([facility]) (test code = [facility] [place] Marcelino [facility] 1538) [address] POCT-GLUCOSE [id number] 20:08:00 Test Item Value Reference Range Interpretation Comments POC-GLUCOSE METER 139 mg/dL 70-110 H TESTED AT [place] [address] ([facility]) (test code = [facility] [facility] 1538) [id number] POCT-GLUCOSE [id number] 16:17:00 Test Item Value Reference Range Interpretation Comments POC-GLUCOSE METER 96 mg/dL 70-110 TESTED AT [place] [address] ([facility]) (test code = [facility] [place] Marcelino [facility] [address] 1538) POCT-GLUCOSE [id number] 11:28:00 Test Item Value Reference Range Interpretation Comments POC-GLUCOSE METER 78 mg/dL 70-110 TESTED AT [place] [address] ([facility]) (test code = [facility] [place]ino [facility] [address] 1538) POCT-GLUCOSE [id number] 06:24:00 Test Item Value Reference Range Interpretation Comments POC-GLUCOSE METER 94 mg/dL 70-110 TESTED AT [place] [address] ([facility]) (test code = [facility] [address] 1538) POCT-GLUCOSE [id number] 20:50:00 Test Item Value Reference Range Interpretation Comments POC-GLUCOSE METER 121 mg/dL 70-110 H TESTED AT [place] [address] ([facility]) (test code = [facility] 1538) [address] POCT-GLUCOSE [id number] 16:08:00 Test Item Value Reference Range Interpretation Comments POC-GLUCOSE METER 80 mg/dL 70-110 TESTED AT [place] [address] ([facility]) (test code = DELVIN Benson [facility] [address] 1538) POCT-GLUCOSE [id number] 11:19:00 Test Item Value Reference Range Interpretation Comments POC-GLUCOSE METER 143 mg/dL 70-110 H TESTED AT [place] [address] ([facility]) (test code = [place]ANC[place] Marcelino [place] 1538) [address] POCT-GLUCOSE [id number] 06:44:00 Test Item Value Reference Range Interpretation Comments POC-GLUCOSE METER 101 mg/dL 70-110 TESTED AT [place] [address] ([facility]) (test code = AL[place] Marcel[place] 1538) [address] POCT-GLUCOSE [id number] 20:50:00 Test Item Value Reference Range Interpretation Comments POC-GLUCOSE METER 108 mg/dL 70-110 TESTED AT [place] [address] ([facility]) (test code = ALIAID Marcelino [facility] 1538) [address] POCT-GLUCOSE [id number] 17:05:00 Test Item Value Reference Range Interpretation Comments POC-GLUCOSE METER 74 mg/dL 70-110 TESTED AT [place] [address] ([facility]) (test code = [facility] [place] Marcelino [facility] [address] 1538) POCT-GLUCOSE [id number] 11:51:00 Test Item Value Reference Range Interpretation Comments POC-GLUCOSE METER 106 mg/dL 70-110 TESTED AT [place] [address] ([facility]) (test [facility] = [facility] 1538) [address] POCT-GLUCOSE [id number] 06:56:00 Test Item Value Reference Range Interpretation Comments POC-GLUCOSE METER 95 mg/dL 70-110 TESTED AT [place] [address] ([facility]) (test code = [facility] [place] Marcelino [facility] [address] 1538) POCT-GLUCOSE [id number] 21:23:00 Test Item Value Reference Range Interpretation Comments POC-GLUCOSE METER 96 mg/dL 70-110 TESTED AT [place] [address] ([facility]) (test code = [facility] [place] [address] 1538) POCT-GLUCOSE [id number] 16:26:00 Test Item Value Reference Range Interpretation Comments POC-GLUCOSE METER 96 mg/dL 70-110 TESTED AT [place] [address] ([facility]) (test code = [place] [address] 1538) POCT-GLUCOSE [id number] 11:56:00 Test Item Value Reference Range Interpretation Comments POC-GLUCOSE METER 132 mg/dL 70-110 H TESTED AT [place] [address] ([facility]) (test code = DELV[place] 1538) [address] POCT-GLUCOSE [id number] 06:35:00 Test Item Value Reference Range Interpretation Comments POC-GLUCOSE METER 97 mg/dL 70-110 TESTED AT [place] [address] ([facility]) (test code = DELVIN Benson [facility] [address] 1538) POCT-GLUCOSE [id number] 21:10:00 Test Item Value Reference Range Interpretation Comments POC-GLUCOSE METER 121 mg/dL 70-110 H TESTED AT [place] [address] ([facility]) (test code = DELVIN Benson [facility] 1538) [address] POCT-GLUCOSE [id number] 16:51:00 Test Item Value Reference Range Interpretation Comments POC-GLUCOSE METER 126 mg/dL 70-110 H TESTED AT [place] [address] ([facility]) (test code = DELVIN Benson [facility] 1538) [address] POCT-GLUCOSE [id number] 11:20:00 Test Item Value Reference Range Interpretation Comments POC-GLUCOSE METER 109 mg/dL 70-110 TESTED AT [place] [address] ([facility]) (test code = DELVIN Benson [facility] 1538) [address] POCT-GLUCOSE [id number] 06:57:00 Test Item Value Reference Range Interpretation Comments POC-GLUCOSE METER 167 mg/dL 70-110 H TESTED AT [place] [address] ([facility]) (test code = DELVIN Benson [facility] 1538) [address] PROTHROMBIN [id number] 06:49:00 Test Item Value Reference Range Interpretation Comments PROTIME ([facility]) (test code = 12.5 seconds 11.9-14.2 759) INR ([facility]) (test code = 370) 1.0 <=5.9 RECOMMENDED COUMADIN/WARFARIN INR THERAPY RANGESSTANDARD DOSE: 2.0 - 3.0 Includes: PROPHYLAXIS for venous thrombosis, systemic embolization; TREATMENT for venous thrombosis and/or pulmonary embolus.HIGH RISK: Target INR is 2.5-3.5 for patients with mechanical heart valves.BASIC METABOLIC [id number] 06:49:00 Test Item Value Reference Range Interpretation [...] PATIEN TS. CBC W/PLT COUNT & AUTO [id number] 06:33:00 Test Item Value Reference Range Interpretation [...] PERCENT (BEAKER) (test code = 2801) POCT-GLUCOSE [id number] 21:27:00 Test Item Value Reference Range Interpretation Comments POC-GLUCOSE METER 129 mg/dL 70-110 H TESTED AT [place] [address] ([facility]) (test code = DELVIN Benson [facility] 1538) [address] POCT-GLUCOSE [id number] 17:18:00 Test Item Value Reference Range Interpretation Comments POC-GLUCOSE METER 108 mg/dL 70-110 TESTED AT [place] [address] ([facility]) (test code = DELVIN Benson [place] 1538) [address] POCT-GLUCOSE [id number] 11:54:00 Test Item Value Reference Range Interpretation Comments POC-GLUCOSE METER 107 mg/dL 70-110 TESTED AT [place] [address] ([facility]) (test code = DELVIN Benson [place] 1538) [address] POCT-GLUCOSE [id number] 11:54:00 Test Item Value Reference Range Interpretation Comments POC-GLUCOSE METER 63 mg/dL 70-110 L Will Repea t Test/TESTED (BEAKER) (test code = [facility] [facility] [address] POCT-GLUCOSE [id number] 20:58:00 Test Item Value Reference Range Interpretation Comments POC-GLUCOSE METER 97 mg/dL 70-110 TESTED AT [facility] 6720 (BEAKER) (test code = DELVIN Benson [facility] [address] 1538) POCT-GLUCOSE [id number] 13:08:00 Test Item Value Reference Range Interpretation Comments POC-GLUCOSE METER 110 mg/dL 70-110 TESTED AT [facility] 6720 (BEAKER) (test code = DELVIN Benson [facility] 1538) [address] [id number] 07:12:00 Test Item Value Reference Range Interpretation Comments MAGNESIUM (BEAKER) (test code = 2.2 mg/dL 1.6-2.6 627) BASIC METABOLIC [id number] 07:12:00 Test Item Value Reference Range Interpretation [...] PATIEN TS. CBC W/PLT COUNT & AUTO [id number] 06:50:00 Test Item Value Reference Range Interpretation [...] (BEAKER) (test code = 2801) RAD, SHUNT [id number] 16:15:00Reason for exam:->Hydrocephalus on CT FINAL REPORT INDICATION:Ventriculoperitoneal shunt for hydrocephalus. COMPARISON: None. TECHNIQUE: Shunt series radiographs, total of 10 views, AP and lateral views of the skull, neck, chest, and abdomen. FINDINGS / IMPRESSION:There is [...] Bowel gas pattern is unremarkable. Signed: Orlando Bryant MDReport Verified Date/Time: 08/10/2018 16:15:10 Reading Location: [facility] C013Y CT Body Reading Room [id number] 06:49:00 Test Item Value Reference Range Interpretation Comments MAGNESIUM (BEAKER) (test code = 2.0 mg/dL 1.6-2.6 627) BASIC METABOLIC [id number] 06:49:00 Test Item Value Reference Range Interpretation [...] PATIEN TS. CBC W/PLT COUNT & AUTO [id number] 06:17:00 Test Item Value Reference Range Interpretation [...] 417) IMMATURE GRANULOCYTES-RELATIVE 1 % 0-1 PERCENT ([facility]) (test code = 2801) POCT-GLUCOSE [id number] 18:47:00 Test Item Value Reference Range Interpretation Comments POC-GLUCOSE METER 86 mg/dL 70-110 TESTED AT [facility] 6720 ([facility]) (test code = [place] [address] 1538) [id number] 13:23:00 Test Item Value Reference Range Interpretation Comments RPR SCREEN ([facility]) (test code = Nonreactive Nonreactive 420) POCT-GLUCOSE [id number] 12:36:00 Test Item Value Reference Range Interpretation Comments POC-GLUCOSE METER 101 mg/dL 70-110 TESTED AT [facility] 6720 ([facility]) (test code = DELVIN Benson [facility] 1538) [address] MR, BRAIN, WITHOUT [id number] 12:20:00Reason for exam:->StrokeWhat is the patient's sedation requirement?->No SedationFINAL REPORT MR, BRAIN, WITHOUT CONTRAST INDICATION: StrokeStroke TECHNIQUE: Mul tiplanar, multisequence MR imaging of the brain was obtained before and after uneventful administration of gadolinium contrast. COMPARISON: Correlation to noncontrast head CT April 20, 2016 FINDINGS:Cystic encephalomalacia has resulted in right frontal, parietal and lateral occipital volume loss andmarked passive expansion of the right ventricular space. Third and fourth ventricles are also expanded. Remote ischemic changes are noted within the gemma, superior, and middle right cerebellar peduncles. A lacunar infarction is also present in the left basal ganglia. No acute ischemic or hemorrhagic injury is present. A left frontal approach ventricular drainage catheter terminates near the midline at approximately the level of the foramen of Monro. There is no midline shift. IMPRESSION: No recent infarct or hemorrhage. Remote ischemic changes resulting in marked cystic encephalomalacia and large volume passive expansion of the right posterior ventricular horn. Ventricular dilation involving thirdand fourth ventricles. A left frontal approach ventricular drainage catheter is in place. 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 Signed: JR Byrnes Robert MDReport Verified Date/Time: 08/09/2018 12:20:16 Reading Location: [facility] B1 C013 Neuro Reading Room TSH/FREE T4 IF [id number] 09:53:00 Test Item Value Reference Range Interpretation Comments THYROID STIMULATING HORMONE 1.28 uIU/mL 0.35-4.94 (BEAKER) (test code = 772) POCT-GLUCOSE [id number] 08:34:00 Test Item Value Reference Range Interpretation Comments POC-GLUCOSE METER 99 mg/dL 70-110 TESTED AT [facility] 6720 (BEAKER) (test code = DELVIN Benson [facility] [address] 1538) BASIC METABOLIC [id number] 06:09:00 Test Item Value Reference Range Interpretation [...] S NOT APPLICABLE FOR DIALYSIS PATIEN TS. [id number] 06:05:00 Test Item Value Reference Range Interpretation Comments MAGNESIUM (BEAKER) 2.0 mg/dL 1.6-2.6 Specimen slightly (test code = 627) hemolyzed FastingLIPID [id number] 06:05:00 Test Item Value Reference Range Interpretation Comments TRIGLYCERIDES (BEAKER) 115 mg/dL Speci men slightly (test code = 540) hemolyzed CHOLESTEROL (BEAKER) 136 mg/dL Specime n slightly (test code = 631) hemolyzed HDL CHOLESTEROL (BEAKER) 25 mg/dL (test code = 976) LDL CHOLESTEROL 88 mg/dL CALCULATED (BEAKER) (test code = 633) Triglyceride Reference Range: Low Risk <150 Borderline 150-199 High Risk 200- 499 Very High Risk >=500Cholesterol Reference Range: Low Risk <200 Borderline 200-239 High Risk >240HDL Cholesterol Reference Range: Low Risk >=60 High Risk <40LDL Cholesterol Reference Range: Optimal <100 Near Optimal 100-129 Borderline 130-159 High 160-189 Very High >=190 FastingCBC W/PLT COUNT & AUTO [id number] 05:51:00 Test Item Value Reference Range Interpretation [...] PERCENT (BEAKER) (test code = 2801) POCT-GLUCOSE [id number] 21:49:00 Test Item Value Reference Range Interpretation Comments POC-GLUCOSE METER 92 mg/dL 70-110 TESTED AT [facility] (test code = [facility] [address] 1538) HEMOGLOBIN [id number] 21:38:00 Test Item Value Reference Range Interpretation Comments HEMOGLOBIN A1C (BEAKER) (test code = 6.3 % 4.3-6.1 H 368) VITAMIN B12 AND [id number] 19:26:00 Test Item Value Reference Range Interpretation Comments VITAMIN B12 (BEAKER) (test code = 306 pg/mL 213-816 774) FOLATE (BEAKER) (test code = 362) 14.3 ng/mL >=7.0 TROPONIN [id number] 18:58:00 Test Item Value Reference Range Interpretation [...] acute neurological disease, and persistent tachyarrhythmia.BASIC METABOLIC [id number] 18:53:00 Test Item Value Reference Range Interpretation [...] APPLICABLE FOR DIALYSIS PATIEN TS. HEPATIC FUNCTION [id number] 18:51:00 Test Item Value Reference Range Interpretation [...] code = 35 U/L 6-55 347) PROTHROMBIN [id number] 18:46:00 Test Item Value Reference Range Interpretation Comments PROTIME (BEAKER) (test code = 15.1 seconds 11.7-14.7 H 759) INR (BEAKER) (test code = 370) 1.3 <=5.9 RECOMMENDED COUMADIN/WARFARIN INR THERAPY RANGESSTANDARD DOSE: 2.0 - 3.0 Includes: PROPHYLAXIS for venous thrombosis, systemic embolization; TREATMENT for venous thrombosis and/or pulmonary embolus.HIGH RISK: Target INR is 2.5-3.5 for patients with mechanical heart valves.CBC W/PLT COUNT & AUTO [id number] 18:39:00 Test Item Value Reference Range Interpretation [...] EOSINOPHILS ABSOLUTE COUNT 0.23 K/ L 0.04-0.54 ([facility]) (test code = 416) BASOPHILS ABSOLUTE COUNT ([facility]) 0.05 K/ L 0.01-0.08 (test code = 417) IMMATURE GRANULOCYTES-RELATIVE 1 % 0-1 PERCENT ([facility]) (test code = 2801) POCT-GLUCOSE [id number] 18:04:00 Test Item Value Reference Range Interpretation Comments POC-GLUCOSE METER 125 mg/dL 70-110 H TESTED AT [facility] 6720 ([facility]) (test code = DEL[place] 1538) [address] CHEM [id number] 09:08:00 Test Item Value Reference Range Interpretation Comments Phosphorus (test code = Phosphorus) 3.8 2.5-4.5 [facility] [employer] [id number] 09:08:00 Test Item Value Reference Range Interpretation Comments Lactic Acid Lvl (test code = Lactic 0.8 0.5-2.2 Acid Lvl) [facility] [employer] [id number] 09:08:00 Test Item Value Reference Range Interpretation Comments Globulin (test code = Globulin) 4.7 2.7-4.2 [facility] [employer] [id number] 09:08:00 Test Item Value Reference Range Interpretation Comments AGAP (test code = AGAP) 8.3 10.0-20.0 [facility] [employer] [id number] 09:08:00 Test Item Value Reference Range Interpretation Comments B/C Ratio (test code = B/C Ratio) 18 1 6-25 [facility] [employer] [id number] 09:08:00 Test Item Value Reference Range Interpretation Comments A/G Ratio (test code = A/G Ratio) 0.7 1 0.7-1.6 [facility] [employer] [id number] 09:08:00 Test Item Value Reference Range Interpretation Comments eGFR (test code = eGFR) 119 [facility] [employer] [id number] 09:08:00 Test Item Value Reference Range Interpretation Comments Chloride Lvl (test code = Chloride Lvl) 108 95-109 [facility] [id number] 09:08:00 Test Item Value Reference Range Interpretation Comments Total Protein (test code = Total 8.0 6.4-8.4 Protein) [facility]2019-05-19 09:08:00 Test Item Value Reference Range Interpretation Comments CO2 (test code = CO2) 28 24-32 [facility]2019-05-19 09:08:00 Test Item Value Reference Range Interpretation Comments Calcium Lvl (test code = Calcium Lvl) 8.3 8.5-10.5 [facility]2019-05-19 09:08:00 Test Item Value Reference Range Interpretation Comments Bili Total (test code = Bili Total) 0.5 0.2-1.3 [id number] 09:08:00 Test Item Value Reference Range Interpretation Comments Albumin Lvl (test code = Albumin Lvl) 3.3 3.5-5.0 [place] [id number] 09:08:00 Test Item Value Reference Range Interpretation Comments ALT (test code = ALT) 37 See_Comment [Auto mated message] The system which ge nerated this result transmit yanely reference range : <=65. The reference range was not used to interpr et this result as brielle l/abnormal. [facility]2019-05-19 09:08:00 Test Item Value Reference Range Interpretation Comments Alk Phos (test code = Alk Phos) 96 39-136 [facility]2019-05-19 09:08:00 Test Item Value Reference Range Interpretation Comments AST (test code = AST) 33 See_Comment [Auto mated message] The system which ge nerated this result transmit yanely reference range : <=37. The reference range was not used to interpr et this result as brielle l/abnormal. [facility]2019-05-19 09:08:00 Test Item Value Reference Range Interpretation Comments Glucose Lvl (test code = Glucose Lvl) 98 70-99 [facility]2019-05-19 09:08:00 Test Item Value Reference Range Interpretation Comments BUN (test code = BUN) 11 7-22 [place] [id number] 09:08:00 Test Item Value Reference Range Interpretation Comments Potassium Lvl (test code = Potassium 4.3 3.5-5.1 Lvl) [place] 454209-05-19 09:08:00 Test Item Value Reference Range Interpretation Comments Sodium Lvl (test code = Sodium Lvl) 140 135-145 [facility]2019-05-19 09:08:00 Test Item Value Reference Range Interpretation Comments Creatinine Lvl (test code = Creatinine 0.62 0.50-1.40 Lvl) [facility]2019-05-19 09:08:00 Test Item Value Reference Range Interpretation Comments Ammonia (test code = Ammonia) 67.0 [facility]2019-05-19 09:08:00 Test Item Value Reference Range Interpretation Comments Procalcitonin Lvl (test 0.05 See_Comment [Au tomated message] code = Procalcitonin Lvl) e system which generated this result transmitted ref erence range: <=0.10. The reference range was not used to interpr et this result as normal/abnormal . [facility]2019-05-19 09:08:00 Test Item Value Reference Range Interpretation Comments Magnesium Lvl (test code = Magnesium 2.2 1.8-2.4 Lvl) [id number] 09:08:00 Test Item Value Reference Range Interpretation Comments MCV (test code = MCV) 76.1 80.0-94.0 [facility] [id number] 09:08:00 Test Item Value Reference Range Interpretation Comments Hct (test code = Hct) 44.7 42.0-54.0 [facility] [id number] 09:08:00 Test Item Value Reference Range Interpretation Comments Hgb (test code = Hgb) 14.3 14.0-18.0 [facility] [id number] 09:08:00 Test Item Value Reference Range Interpretation Comments RDW (test code = RDW) 17.2 11.5-14.5 [facility] [id number] 09:08:00 Test Item Value Reference Range Interpretation Comments Platelet (test code = Platelet) 284 133-450 [facility] H[id number] 09:08:00 Test Item Value Reference Range Interpretation Comments MCH (test code = MCH) 24.2 pg 27.0-31.0 [facility] H[id number] 09:08:00 Test Item Value Reference Range Interpretation Comments MCHC (test code = MCHC) 31.9 32.0-36.0 [place] [id number] 09:08:00 Test Item Value Reference Range Interpretation Comments MPV (test code = MPV) 8.3 7.4-10.4 [facility] [id number] 09:08:00 Test Item Value Reference Range Interpretation Comments RBC (test code = RBC) 5.88 4.70-6.10 [facility] [id number] 09:08:00 Test Item Value Reference Range Interpretation Comments WBC (test code = WBC) 10.4 3.7-10.4 [facility]2019-05-19 09:08:00 Test Item Value Reference Range Interpretation Comments Ca Ion WB (test code = Ca Ion WB) 1.10 1.05-1.25 [facility]2019-05-19 09:08:00 Test Item Value Reference Range Interpretation Comments Ca Norm WB (test code = Ca Norm WB) 1.07 1.05-1.25 [facility]2019-05-18 10:47:00 Test Item Value Reference Range Interpretation Comments Phosphorus (test code = Phosphorus) 3.4 2.5-4.5 [facility]2019-05-18 10:47:00 Test Item Value Reference Range Interpretation Comments eGFR (test code = eGFR) 120 [facility]2019-05-18 10:47:00 Test Item Value Reference Range Interpretation Comments Bili Total (test code = Bili Total) 0.5 0.2-1.3 [facility]2019-05-18 10:47:00 Test Item Value Reference Range Interpretation Comments Total Protein (test code = Total 7.9 6.4-8.4 Protein) [facility]2019-05-18 10:47:00 Test Item Value Reference Range Interpretation Comments ALT (test code = ALT) 37 See_Comment [Auto mated message] The system which ge nerated this result transmit yanely reference range : <=65. The reference range was not used to interpr et this result as brielle l/abnormal. [place] 454209-05-18 10:47:00 Test Item Value Reference Range Interpretation Comments Albumin Lvl (test code = Albumin Lvl) 3.3 3.5-5.0 [facility]2019-05-18 10:47:00 Test Item Value Reference Range Interpretation Comments Alk Phos (test code = Alk Phos) 100 39-136 [facility]2019-05-18 10:47:00 Test Item Value Reference Range Interpretation Comments AST (test code = AST) 27 See_Comment [Auto mated message] The system which ge nerated this result transmit yanely reference range : <=37. The reference range was not used to interpr et this result as brielle l/abnormal. [facility]2019-05-18 10:47:00 Test Item Value Reference Range Interpretation Comments Chloride Lvl (test code = Chloride Lvl) 107 95-109 [facility]2019-05-18 10:47:00 Test Item Value Reference Range Interpretation Comments CO2 (test code = CO2) 28 24-32 [facility]2019-05-18 10:47:00 Test Item Value Reference Range Interpretation Comments Potassium Lvl (test code = Potassium 4.4 3.5-5.1 Lvl) [facility]2019-05-18 10:47:00 Test Item Value Reference Range Interpretation Comments Calcium Lvl (test code = Calcium Lvl) 8.8 8.5-10.5 [facility]2019-05-18 10:47:00 Test Item Value Reference Range Interpretation Comments Sodium Lvl (test code = Sodium Lvl) 141 135-145 [facility]2019-05-18 10:47:00 Test Item Value Reference Range Interpretation Comments Creatinine Lvl (test code = Creatinine 0.61 0.50-1.40 Lvl) [facility]2019-05-18 10:47:00 Test Item Value Reference Range Interpretation Comments BUN (test code = BUN) 9 7-22 [facility]2019-05-18 10:47:00 Test Item Value Reference Range Interpretation Comments Glucose Lvl (test code = Glucose Lvl) 105 70-99 [facility]2019-05-18 10:47:00 Test Item Value Reference Range Interpretation Comments B/C Ratio (test code = B/C Ratio) 15 1 6-25 [facility]2019-05-18 10:47:00 Test Item Value Reference Range Interpretation Comments AGAP (test code = AGAP) 10.4 10.0-20.0 [place] 454209-05-18 10:47:00 Test Item Value Reference Range Interpretation Comments Globulin (test code = Globulin) 4.6 2.7-4.2 [facility]2019-05-18 10:47:00 Test Item Value Reference Range Interpretation Comments A/G Ratio (test code = A/G Ratio) 0.7 1 0.7-1.6 [facility]2019-05-18 10:47:00 Test Item Value Reference Range Interpretation Comments Magnesium Lvl (test code = Magnesium 2.2 1.8-2.4 Lvl) [facility]cfxrxbLAXKBYHNZL1766-66-16 10:47:00 Test Item Value Reference Range Interpretation Comments Microcyte (test code = 1+ *ABN*(08/03/18 Microcyte) 5:47 AM) [facility] HospitalGxwvmhmYIYBCKYUYY9496-92-43 10:47:00 Test Item Value Reference Range Interpretation Comments Monocytes # (test code 1.0 See_Comment [Aut omated message] The = Monocytes #) system which generated this result tra nsmitted reference range : <=0.8. The reference r matthieu was not used to int erpret this result as normal/abnormal . [facility] HospitalLohslejXCZPWLCEOZ6098-22-84 10:47:00 Test Item Value Reference Range Interpretation Comments Lymphocytes # (test code = Lymphocytes 2.9 1.0-5.5 #) [facility] HospitalRmcfrtlKHAYWZXOBF3023-95-01 10:47:00 Test Item Value Reference Range Interpretation Comments Basophils # (test code 0.1 See_Comment [Aut omated message] The = Basophils #) system which generated this result tra nsmitted reference range : <=0.2. The reference r matthieu was not used to int erpret this result as normal/abnormal . [facility] HospitalQclkclgKYORUVMUCA0430-59-85 10:47:00 Test Item Value Reference Range Interpretation Comments Eosinophils # (test code 0.3 See_Comment [A utomated message] The = Eosinophils #) system whic h generated this result tra nsmitted reference range : <=0.5. The reference r matthieu was not used to int erpret this result as normal/abnormal . [facility] HospitalEhcsnhqPHFELBPTGC5593-45-56 10:47:00 Test Item Value Reference Range Interpretation Comments Eosinophils (test code = 3.1 See_Comment [A utomated message] The Eosinophils) system which ge nerated this result tra nsmitted reference range : <=4.0. The reference r matthieu was not used to int erpret this result as normal/abnormal . [facility] HospitalFwvqtjpJDCCDIFHLB9036-27-83 10:47:00 Test Item Value Reference Range Interpretation Comments Monocytes (test code = Monocytes) 9.0 2.0-12.0 [facility] HospitalQumowatTDZAZIXGQA1066-16-95 10:47:00 Test Item Value Reference Range Interpretation Comments Basophils (test code = 0.9 See_Comment [Aut omated message] The Basophils) system which ge nerated this result tra nsmitted reference range : <=1.0. The reference r matthieu was not used to int erpret this result as normal/abnormal . [facility] HospitalZlwgserQOLARRTRFA3775-11-65 10:47:00 Test Item Value Reference Range Interpretation Comments Neutrophils # (test code = Neutrophils 6.8 1.5-8.1 #) [facility] HospitalGpgorqbSAJJXZPOYH3241-28-70 10:47:00 Test Item Value Reference Range Interpretation Comments Segs (test code = Segs) 61.2 45.0-75.0 [facility] HospitalWyuffzmCWJKAGWFUQ7102-23-68 10:47:00 Test Item Value Reference Range Interpretation Comments Lymphocytes (test code = Lymphocytes) 25.8 20.0-40.0 [facility] HospitalWxvgzpjEVDPXIOLLR1534-05-94 10:47:00 Test Item Value Reference Range Interpretation Comments MPV (test code = MPV) 8.4 7.4-10.4 [facility] HospitalMutcypeSVDCOUDDBH7322-83-16 10:47:00 Test Item Value Reference Range Interpretation Comments MCHC (test code = MCHC) 31.9 32.0-36.0 [facility] HospitalMxpzhgtFGPKPIRULR7283-88-72 10:47:00 Test Item Value Reference Range Interpretation Comments RDW (test code = RDW) 17.3 11.5-14.5 [facility] HospitalFvhkxpnIVBTCDJUXO8188-63-24 10:47:00 Test Item Value Reference Range Interpretation Comments Hct (test code = Hct) 43.0 42.0-54.0 [facility] HospitalFucpxwyBOSKFPAYSP7055-41-21 10:47:00 Test Item Value Reference Range Interpretation Comments MCH (test code = MCH) 24.3 pg 27.0-31.0 [facility] HospitalXxnhmecMVQRGWMIRA6192-44-67 10:47:00 Test Item Value Reference Range Interpretation Comments MCV (test code = MCV) 76.3 80.0-94.0 [facility] CenterYqcwontBWLUWYKRPK7620-57-75 10:47:00 Test Item Value Reference Range Interpretation Comments RBC (test code = RBC) 5.64 4.70-6.10 [facility] CenterJkbfdqdPTHSJKDHRF4159-35-61 10:47:00 Test Item Value Reference Range Interpretation Comments WBC (test code = WBC) 11.1 3.7-10.4 [facility] CenterNogvudgWKJUHCNOOQ8664-81-16 10:47:00 Test Item Value Reference Range Interpretation Comments Hgb (test code = Hgb) 13.7 14.0-18.0 [facility] CenterGfqwaulYJGOAMIFCY4450-06-16 10:47:00 Test Item Value Reference Range Interpretation Comments Platelet (test code = Platelet) 287 133-450 [facility]NtgerlxSIHLMP5499-81-33 10:47:00 Test Item Value Reference Range Interpretation Comments LDL (Calculated) (test code = LDL 78 (Calculated)) [facility]QiixhpmNBGMGS1578-69-08 10:47:00 Test Item Value Reference Range Interpretation Comments VLDL (test code = VLDL) 26 1 [facility] HospitalThoxnpwYXBSST9853-94-54 10:47:00 Test Item Value Reference Range Interpretation Comments HDL (test code = HDL) 27 [facility] HospitalIbkwwajYIICDY5164-34-77 10:47:00 Test Item Value Reference Range Interpretation Comments Trig (test code = Trig) 128 [facility] HospitalVrmkzkzCYXLRR6037-47-25 10:47:00 Test Item Value Reference Range Interpretation Comments Chol (test code = Chol) 131 [facility] HospitalPiiceqyBDLHDO6513-36-20 10:47:00 Test Item Value Reference Range Interpretation Comments CHD Risk (test code = CHD Risk) 4.85 1 4.00-7.30 [facility] HospitalannPARATHYROID BLZQBVD2032-43-62 10:47:00 Test Item Value Reference Range Interpretation Comments Ca Norm WB (test code = Ca Norm WB) 1.08 1.05-1.25 [facility] HospitalannPARATHYROID TCUEIZU0914-25-74 10:47:00 Test Item Value Reference Range Interpretation Comments Ca Ion WB (test code = Ca Ion WB) 1.08 1.05-1.25 [facility]SPE[facility] WZCYVGRIO1881-70-34 10:47:00 Test Item Value Reference Range Interpretation Comments Hgb A1C (test code = Hgb A1C) 6.1 [facility] ADHMRD4502-37-09 03:13:00 Test Item Value Reference Range Interpretation Comments U Cannab Scr (test Negative *NA*(08/02/18 code = U Cannab Scr) 10:13 PM) [facility] PRAZZW9449-02-29 03:13:00 Test Item Value Reference Range Interpretation Comments U Opiate Scr (test Negative *NA*(08/02/18 code = U Opiate Scr) 10:13 PM) [facility] JYWUWN2434-82-09 03:13:00 Test Item Value Reference Range Interpretation Comments UDS Note (test code = See Note (08/02/18 10:13 UDS Note) PM) [facility] UBVHVV9747-43-70 03:13:00 Test Item Value Reference Range Interpretation Comments U Phencyclidine Scr (test Negative code = U Phencyclidine *NA*(08/02/18 10:13 Scr) PM) [facility] UEISNO1508-12-09 03:13:00 Test Item Value Reference Range Interpretation Comments U Benzodiaz Scr (test Negative *NA*(08/02/18 code = U Benzodiaz Scr) 10:13 PM) [facility] CSQTLT0256-08-54 03:13:00 Test Item Value Reference Range Interpretation Comments U Cocaine Scr (test Negative *NA*(08/02/18 code = U Cocaine Scr) 10:13 PM) [facility] PSHRSG3372-24-05 03:13:00 Test Item Value Reference Range Interpretation Comments U Stephanie Scr (test code Negative *NA*(08/02/18 = U Stephanie Scr) 10:13 PM) [facility] VLBPDD8882-18-03 03:13:00 Test Item Value Reference Range Interpretation Comments U Amph Scr (test code Negative *NA*(08/02/18 = U Amph Scr) 10:13 PM) [facility] [id number] 03:13:00 Test Item Value Reference Range Interpretation Comments UA Color (test code = Yellow *NA*(08/02/18 UA Color) 10:13 PM) [facility] [id number] 03:13:00 Test Item Value Reference Range Interpretation Comments UA Turbidity (test code = Clear (08/02/18 10:13 UA Turbidity) PM) [facility] [id number] 03:13:00 Test Item Value Reference Range Interpretation Comments UA Protein (test code Negative (08/02/18 10:13 = UA Protein) PM) [facility] AND [id number] 03:13:00 Test Item Value Reference Range Interpretation Comments UA Spec Grav (test code = UA Spec 1.010 1 Grav) [facility] AND [id number] 03:13:00 Test Item Value Reference Range Interpretation Comments UA Glucose (test code Negative (08/02/18 10:13 = UA Glucose) PM) [facility] AND [id number] 03:13:00 Test Item Value Reference Range Interpretation Comments UA pH (test code = UA pH) 6.0 1 5.0-8.0 [facility] AND [id number] 03:13:00 Test Item Value Reference Range Interpretation Comments UA Bili (test code = Negative *NA*(08/02/18 UA Bili) 10:13 PM) [facility] AND [id number] 03:13:00 Test Item Value Reference Range Interpretation Comments UA Blood (test code = Negative (08/02/18 10:13 UA Blood) PM) [facility] AND [id number] 03:13:00 Test Item Value Reference Range Interpretation Comments UA Ketones (test code Negative *NA*(08/02/18 = UA Ketones) 10:13 PM) [facility] AND [id number] 03:13:00 Test Item Value Reference Range Interpretation Comments UA WBC (test code = UA WBC) 0-2 /HPF [facility] AND [id number] 03:13:00 Test Item Value Reference Range Interpretation Comments UA Leuk Est (test Negative (08/02/18 10:13 code = UA Leuk Est) PM) [facility] AND [id number] 03:13:00 Test Item Value Reference Range Interpretation Comments UA Nitrite (test code Negative (08/02/18 10:13 = UA Nitrite) PM) [facility] AND [id number] 03:13:00 Test Item Value Reference Range Interpretation Comments UA Urobilinogen (test code = UA 1.0 0.1-1.0 Urobilinogen) [facility] AND [id number] 03:13:00 Test Item Value Reference Range Interpretation Comments UA Sq Epi (test code = UA Sq Occasional /LPF Epi) [facility] AND [id number] 03:13:00 Test Item Value Reference Range Interpretation Comments UA Bacteria (test code = UA Few /HPF Bacteria) [facility] AND [id number] 03:13:00 Test Item Value Reference Range Interpretation Comments UA RBC (test code = 0-2 /HPF See_Comment [Automa yanely message] The UA RBC) system which ge nerated this result tra nsmitted reference range : <=2. The reference range was not used to interpr et this result as brielle l/abnormal. [facility] [employer] WEMOTHL9438-55-32 23:08:00 Test Item Value Reference Range Interpretation Comments ABO/Rh (test code = ABO/Rh) O POS [facility] HospitalArcivr MJHOPYB1857-28-51 23:08:00 Test Item Value Reference Range Interpretation Comments Antibody Scrn (test Negative (08/02/18 6:08 code = Antibody Scrn) PM) [facility]PnxntdwJIVDGKNCSS6800-47-98 23:06:00 Test Item Value Reference Range Interpretation Comments [facility] HIV 4th GEN (test Negative *NA*(08/02/18 code = CDC HIV 4th 6:06 PM) GEN) [facility] HospitalSpeakUpCARDIAC [id number] 22:29:00 Test Item Value Reference Range Interpretation Comments Troponin-I (test code no gt See_Comment [Auto mated message] The = Troponin-I) system which g enerated this result transmit yanely reference range : <=0.40. The reference r matthieu was not used to interpr et this result as brielle l/abnormal. [facility] CxlgudwKOZFFEBABPFO6923-76-93 22:29:00 Test Item Value Reference Range Interpretation Comments AGAP (test code = AGAP) 9.3 10.0-20.0 [facility] HospitalDcbgnioASAPGGUBWZCZ5932-33-75 22:29:00 Test Item Value Reference Range Interpretation Comments eGFR (test code = eGFR) 113 [facility] HospitalJfgsexmZSJCEXHQMIKL7992-04-16 22:29:00 Test Item Value Reference Range Interpretation Comments Chloride Lvl (test code = Chloride Lvl) 105 95-109 [facility]NtjvrzzYYIJLNVNQUJV3797-55-45 22:29:00 Test Item Value Reference Range Interpretation Comments CO2 (test code = CO2) 31 24-32 [facility]JxuhhuuGSVQVWSNFPVM7210-69-86 22:29:00 Test Item Value Reference Range Interpretation Comments Calcium Lvl (test code = Calcium Lvl) 8.9 8.5-10.5 [facility] MichiganZqjyfztHQXZVWJZPZNR2818-87-75 22:29:00 Test Item Value Reference Range Interpretation Comments Potassium Lvl (test code = Potassium 4.3 3.5-5.1 Lvl) [facility] MichiganBcekdrdWSVIIFNNLXQP3289-41-05 22:29:00 Test Item Value Reference Range Interpretation Comments Creatinine Lvl (test code = Creatinine 0.71 0.50-1.40 Lvl) [facility]GdvrjywIYLVICYUQFXV2492-91-40 22:29:00 Test Item Value Reference Range Interpretation Comments Sodium Lvl (test code = Sodium Lvl) 141 135-145 [facility] MichiganIzrfnbcMMEEXQNAYMJC9492-94-64 22:29:00 Test Item Value Reference Range Interpretation Comments BUN (test code = BUN) 9 7-22 [facility] MichiganTlhvllvPATECBNSDOFV0719-51-86 22:29:00 Test Item Value Reference Range Interpretation Comments Glucose Lvl (test code = Glucose Lvl) 136 70-99 [facility]XvqmasyPNSFXLPIXX1985-69-14 22:29:00 Test Item Value Reference Range Interpretation Comments PT (test code = PT) 12.1 s 12.0-14.7 [facility] HospitalVlxerjkVBNEENQJVG9389-95-19 22:29:00 Test Item Value Reference Range Interpretation Comments INR (test code = INR) 0.91 1 0.85-1.17 [facility] HospitalKjgeccrMBDGRYWNFS6327-24-76 22:29:00 Test Item Value Reference Range Interpretation Comments PTT (test code = PTT) 32.7 s 22.9-35.8 [facility] HospitalIitvseeWFTXARWRBP3958-08-24 22:29:00 Test Item Value Reference Range Interpretation Comments Platelet (test code = Platelet) 247 133-450 [facility] HospitalEazbughOOOQAENBAK7305-31-33 22:29:00 Test Item Value Reference Range Interpretation Comments MPV (test code = MPV) 8.7 7.4-10.4 [facility] HospitalMovunirGPHQEGAQWR3731-85-63 22:29:00 Test Item Value Reference Range Interpretation Comments MCV (test code = MCV) 76.9 80.0-94.0 [facility] HospitalWdshgoqOYEFFASJYF4018-51-18 22:29:00 Test Item Value Reference Range Interpretation Comments Hct (test code = Hct) 44.1 42.0-54.0 [facility] HospitalLfqhwpfYRZEEUZFPX9284-11-64 22:29:00 Test Item Value Reference Range Interpretation Comments MCH (test code = MCH) 24.2 pg 27.0-31.0 [facility] HospitalDcjfdgkJECGOZFBNS7973-82-58 22:29:00 Test Item Value Reference Range Interpretation Comments RDW (test code = RDW) 17.5 11.5-14.5 [facility] HospitalIrtehocZNIMNICMLN8373-92-29 22:29:00 Test Item Value Reference Range Interpretation Comments MCHC (test code = MCHC) 31.5 32.0-36.0 [facility] HospitalQldzumcSVFSMFRLAA1466-30-89 22:29:00 Test Item Value Reference Range Interpretation Comments RBC (test code = RBC) 5.73 4.70-6.10 [facility] HospitalTdfuezuHWLATCQNBK7799-26-20 22:29:00 Test Item Value Reference Range Interpretation Comments WBC (test code = WBC) 9.5 3.7-10.4 [facility] HospitalUynmuuzVNBJKMPUXT3066-96-57 22:29:00 Test Item Value Reference Range Interpretation Comments Hgb (test code = Hgb) 13.9 14.0-18.0 [facility] HospitalQnjmqjfQWVLCXQQPD8875-46-66 22:29:00 Test Item Value Reference Range Interpretation Comments Monocytes # (test code 0.7 See_Comment [Aut omated message] The = Monocytes #) system which generated this result tra nsmitted reference range : <=0.8. The reference r matthieu was not used to int erpret this result as normal/abnormal . [facility] HospitalXszmqqsCIEEQYJDEM3969-13-01 22:29:00 Test Item Value Reference Range Interpretation Comments Eosinophils # (test code 0.2 See_Comment [A utomated message] The = Eosinophils #) system whic h generated this result tra nsmitted reference range : <=0.5. The reference r matthieu was not used to int erpret this result as normal/abnormal . [facility] HospitalAbgkqbzBUYNEUVZIB8888-67-52 22:29:00 Test Item Value Reference Range Interpretation Comments Eosinophils (test code = 2.5 See_Comment [A utomated message] The Eosinophils) system which ge nerated this result tra nsmitted reference range : <=4.0. The reference r matthieu was not used to int erpret this result as normal/abnormal . [facility] HospitalLnzjewsSIZDWMGMKT4248-34-04 22:29:00 Test Item Value Reference Range Interpretation Comments Neutrophils # (test code = Neutrophils 6.2 1.5-8.1 #) [facility] HospitalFaogsjxHUYUCFVQLE5578-63-10 22:29:00 Test Item Value Reference Range Interpretation Comments Basophils (test code = 0.6 See_Comment [Aut omated message] The Basophils) system which ge nerated this result tra nsmitted reference range : <=1.0. The reference r matthieu was not used to int erpret this result as normal/abnormal . [facility] HospitalJbzbfdfKZIMHOPBCX2490-98-19 22:29:00 Test Item Value Reference Range Interpretation Comments Lymphocytes (test code = Lymphocytes) 23.9 20.0-40.0 [facility] HospitalUwdscatBXZEUQPUJN3192-26-39 22:29:00 Test Item Value Reference Range Interpretation Comments Segs (test code = Segs) 65.6 45.0-75.0 [facility] HospitalFkthdwcOVNXYLCAZU3425-89-94 22:29:00 Test Item Value Reference Range Interpretation Comments Monocytes (test code = Monocytes) 7.4 2.0-12.0 [facility] HospitalAcwfhvuFBDTBSIXWV8144-08-44 22:29:00 Test Item Value Reference Range Interpretation Comments Lymphocytes # (test code = Lymphocytes 2.3 1.0-5.5 #) [facility] HospitalGqqmqyjTKHHSOEAHF8638-22-38 22:29:00 Test Item Value Reference Range Interpretation Comments Basophils # (test code 0.1 See_Comment [Aut omated message] The = Basophils #) system which generated this result tra nsmitted reference range : <=0.2. The reference r matthieu was not used to int erpret this result as normal/abnormal . [facility] HospitalCyykgbmEDXFPXIRHP8183-44-96 22:29:00 Test Item Value Reference Range Interpretation Comments Microcyte (test code = 1+ *ABN*(08/02/18 Microcyte) 5:29 PM) [facility]2018-11-06 22:31:00 Test Item Value Reference Range Interpretation Comments eGFR (test code = eGFR) 121 [facility]CHEM EHNHH7732-67-23 22:31:00 Test Item Value Reference Range Interpretation Comments POC Creatinine (test code = POC 0.6 0.5-1.4 Creatinine) [facility] MichiganMamztokTNICJRZMCUUF4353-54-30 09:58:00 Test Item Value Reference Range Interpretation Comments AGAP (test code = AGAP) 7.9 10.0-20.0 [facility] MichiganToufakvURGMXRFCUVUU0043-62-77 09:58:00 Test Item Value Reference Range Interpretation Comments eGFR (test code = eGFR) 117 [facility] MichiganVjxukwkALFHVIKHQDBO4782-67-93 09:58:00 Test Item Value Reference Range Interpretation Comments CO2 (test code = CO2) 31 24-32 [facility] MichiganRgopkwxFTMVIIRJLAXX9626-71-70 09:58:00 Test Item Value Reference Range Interpretation Comments Chloride Lvl (test code = Chloride Lvl) 106 95-109 [facility] MichiganXtiginiCNTFUMJCGBSO1624-89-81 09:58:00 Test Item Value Reference Range Interpretation Comments Calcium Lvl (test code = Calcium Lvl) 8.4 8.5-10.5 [facility] MichiganEtubdbsXHSRLGQOTNVF7324-36-33 09:58:00 Test Item Value Reference Range Interpretation Comments BUN (test code = BUN) 6 7-22 [facility] MichiganSrwqewsMVYIMMMNUPVT5797-29-77 09:58:00 Test Item Value Reference Range Interpretation Comments Sodium Lvl (test code = Sodium Lvl) 141 135-145 [facility] MichiganGjytcotDKLPYYIRWFYP0311-22-52 09:58:00 Test Item Value Reference Range Interpretation Comments Creatinine Lvl (test code = Creatinine 0.66 0.50-1.40 Lvl) [facility] MichiganLmhzxefILEBYDUUZTAG5313-29-00 09:58:00 Test Item Value Reference Range Interpretation Comments Potassium Lvl (test code = Potassium 3.9 3.5-5.1 Lvl) [facility] MichiganSjfutpjZJIOAOZGTBOK4358-85-35 09:58:00 Test Item Value Reference Range Interpretation Comments Glucose Lvl (test code = Glucose Lvl) 174 70-99 [facility] HospitalRucoafgKBJJKOKPRJ3891-86-41 09:58:00 Test Item Value Reference Range Interpretation Comments Basophils (test code = 0.4 See_Comment [Aut omated message] The Basophils) system which ge nerated this result tra nsmitted reference range : <=1.0. The reference r matthieu was not used to int erpret this result as normal/abnormal . [facility] HospitalPpcgwpkWTZPOOIIRR1626-12-96 09:58:00 Test Item Value Reference Range Interpretation Comments Neutrophils # (test code = Neutrophils 6.9 1.5-8.1 #) [facility] HospitalSqvgoyzQDTGYESTXS8038-94-94 09:58:00 Test Item Value Reference Range Interpretation Comments Lymphocytes # (test code = Lymphocytes 3.1 1.0-5.5 #) [facility] HospitalVfnrtkgGVHYSSCXKX1362-15-32 09:58:00 Test Item Value Reference Range Interpretation Comments Monocytes # (test code 0.8 See_Comment [Aut omated message] The = Monocytes #) system which generated this result tra nsmitted reference range : <=0.8. The reference r matthieu was not used to int erpret this result as normal/abnormal . [facility] HospitalNbrigfnQHJZBPBZRT9817-29-34 09:58:00 Test Item Value Reference Range Interpretation Comments Basophils # (test code 0.0 See_Comment [Aut omated message] The = Basophils #) system which generated this result tra nsmitted reference range : <=0.2. The reference r matthieu was not used to int erpret this result as normal/abnormal . [facility] HospitalSoinowlVBEBITTGOU1445-33-71 09:58:00 Test Item Value Reference Range Interpretation Comments Eosinophils # (test code 0.3 See_Comment [A utomated message] The = Eosinophils #) system [facility] h generated this result tra nsmitted reference range : <=0.5. The reference r matthieu was not used to int erpret this result as normal/abnormal . [facility] HospitalJbcxlegJJDLDXFVDJ1575-11-98 09:58:00 Test Item Value Reference Range Interpretation Comments Eosinophils (test code = 2.8 See_Comment [A utomated message] The Eosinophils) system which ge nerated this result tra nsmitted reference range : <=4.0. The reference r matthieu was not used to int erpret this result as normal/abnormal . [facility] HospitalWtmolchIXZJRBQAEI5793-27-03 09:58:00 Test Item Value Reference Range Interpretation Comments Segs (test code = Segs) 61.7 45.0-75.0 [facility] HospitalKfiyrhvWFNZSDEXWJ0911-81-72 09:58:00 Test Item Value Reference Range Interpretation Comments Lymphocytes (test code = Lymphocytes) 27.6 20.0-40.0 [facility] HospitalRnftbvcUSJSJEBHJB8304-04-60 09:58:00 Test Item Value Reference Range Interpretation Comments Monocytes (test code = Monocytes) 7.5 2.0-12.0 [facility] HospitalWuafpnlXXFLZMAANC6223-18-63 09:58:00 Test Item Value Reference Range Interpretation Comments Platelet (test code = Platelet) 294 133-450 [facility] HospitalDzxkrerWZFZGLZUYN7231-30-26 09:58:00 Test Item Value Reference Range Interpretation Comments MPV (test code = MPV) 8.7 7.4-10.4 [facility] HospitalKdzudzfRNTRWWDCDS3199-00-34 09:58:00 Test Item Value Reference Range Interpretation Comments WBC (test code = WBC) 11.2 3.7-10.4 [facility] HospitalGivzauzXFXWZSZSXQ4975-06-15 09:58:00 Test Item Value Reference Range Interpretation Comments MCHC (test code = MCHC) 31.3 32.0-36.0 [facility] HospitalIytgimpPBTXTZDBGW2476-59-40 09:58:00 Test Item Value Reference Range Interpretation Comments MCV (test code = MCV) 77.6 80.0-94.0 [facility] HospitalMvpghmzRXBHQAUCZM9143-34-30 09:58:00 Test Item Value Reference Range Interpretation Comments MCH (test code = MCH) 24.3 pg 27.0-31.0 [facility] HospitalPatelgjQCQCTSZZTF0260-11-17 09:58:00 Test Item Value Reference Range Interpretation Comments Hgb (test code = Hgb) 12.9 14.0-18.0 [facility] HospitalSlkuerfIRZZHICXWG6285-99-42 09:58:00 Test Item Value Reference Range Interpretation Comments Hct (test code = Hct) 41.3 42.0-54.0 [facility]qi[facility]wlNQHMXLGEGU4743-46-13 09:58:00 Test Item Value Reference Range Interpretation Comments RDW (test code = RDW) 16.9 11.5-14.5 [facility]GstkndzRLVPPQDGZK3698-57-69 09:58:00 Test Item Value Reference Range Interpretation Comments RBC (test code = RBC) 5.32 4.70-6.10 [facility]MATI[facility]42 09:58:00 Test Item Value Reference Range Interpretation Comments CHD Risk (test code = CHD Risk) 4.74 1 4.00-7.30 [facility]QeidcawWNFIAX6483-90-35 09:58:00 Test Item Value Reference Range Interpretation Comments LDL (Calculated) (test code = LDL 99 (Calculated)) [facility]DqwfpufNXORGL4176-83-61 09:58:00 Test Item Value Reference Range Interpretation Comments HDL (test code = HDL) 31 [facility] HospitalSypruwuIKGHZR5063-82-17 09:58:00 Test Item Value Reference Range Interpretation Comments VLDL (test code = VLDL) 17 1 [facility] HospitalDyuidrdHWMNWH1895-30-95 09:58:00 Test Item Value Reference Range Interpretation Comments Chol (test code = Chol) 147 [facility]KolwqzjMNECDC1490-27-27 09:58:00 Test Item Value Reference Range Interpretation Comments Trig (test code = Trig) [facility]NSM8301[facility]-17 09:58:00 Test Item Value Reference Range Interpretation Comments Hgb A1C (test code = Hgb A1C) 6.6 [facility] AND [id number] 01:54:00 Test Item Value Reference Range Interpretation Comments UA Winfield Yeast (test code = UA Occasional /HPF Winfield Yeast) [facility] AND [id number] 01:54:00 Test Item Value Reference Range Interpretation Comments UA Urobilinogen (test code = UA <=1.0 mg/dL 0.1-1.0 Urobilinogen) [facility] AND [id number] 01:54:00 Test Item Value Reference Range Interpretation Comments UA Protein (test code = UA Negative mg/dL Protein) [facility] AND [id number] 01:54:00 Test Item Value Reference Range Interpretation Comments UA Glucose (test code = UA Negative mg/dL Glucose) [facility] AND [id number] 01:54:00 Test Item Value Reference Range Interpretation Comments UA Ketones (test code = UA Negative mg/dL Ketones) [facility] AND [id number] 01:54:00 Test Item Value Reference Range Interpretation Comments UA Bili (test code = Negative *NA*(10/31/17 UA Bili) 8:54 PM) [facility] AND [id number] 01:54:00 Test Item Value Reference Range Interpretation Comments UA CaOx Danyelle (test code = UA Occasional /HPF CaOx Danyelle) [facility] AND [id number] 01:54:00 Test Item Value Reference Range Interpretation Comments UA RBC (test code = 2 See_Comment [Automa yanely message] The UA RBC) system which ge nerated this result transmit yanely reference range : <=2. The reference range was not used to interpr et this result as brielle l/abnormal. [facility] AND [id number] 01:54:00 Test Item Value Reference Range Interpretation Comments UA Color (test code = Light Yellow UA Color) *NA*(10/31/17 8:54 PM) [facility] AND [id number] 01:54:00 Test Item Value Reference Range Interpretation Comments UA Turbidity (test code = Clear (10/31/17 8:54 UA Turbidity) PM) [facility] AND [id number] 01:54:00 Test Item Value Reference Range Interpretation Comments UA Spec Grav (test code = UA Spec 1.003 1 Grav) [facility] AND [id number] 01:54:00 Test Item Value Reference Range Interpretation Comments UA pH (test code = UA pH) 6.0 1 5.0-8.0 [facility] AND [id number] 01:54:00 Test Item Value Reference Range Interpretation Comments UA Nitrite (test code Negative (10/31/17 8:54 = UA Nitrite) PM) [facility] AND [id number] 01:54:00 Test Item Value Reference Range Interpretation Comments UA Blood (test code = Negative (10/31/17 8:54 UA Blood) PM) [facility] AND [id number] 01:54:00 Test Item Value Reference Range Interpretation Comments UA Leuk Est (test Negative (10/31/17 8:54 code = UA Leuk Est) PM) [facility] AND [id number] 01:54:00 Test Item Value Reference Range Interpretation Comments UA Sq Epi (test code = UA Sq Occasional /LPF Epi) [facility] [id number] 01:12:00 Test Item Value Reference Range Interpretation Comments Total CK (test code = Total CK) 85 12-191 [facility] [id number] 01:12:00 Test Item Value Reference Range Interpretation Comments Troponin-I (test code no gt See_Comment [Auto mated message] The = Troponin-I) system which g enerated this result transmit yanely reference range : <=0.40. The reference r matthieu was not used to interpr et this result as brielle l/abnormal. [facility]2018-08-16 01:12:00 Test Item Value Reference Range Interpretation Comments eGFR (test code = eGFR) 110 [facility]2018-08-16 01:12:00 Test Item Value Reference Range Interpretation Comments ALT (test code = ALT) 28 See_Comment [Auto mated message] The system which ge nerated this result transmit yanely reference range : <=65. The reference range was not used to interpr et this result as brielle l/abnormal. [facility]2018-08-16 01:12:00 Test Item Value Reference Range Interpretation Comments AST (test code = AST) 10 See_Comment [Auto mated message] The system which ge nerated this result transmit yanely reference range : <=37. The reference range was not used to interpr et this result as brielle l/abnormal. [facility]2018-08-16 01:12:00 Test Item Value Reference Range Interpretation Comments Albumin Lvl (test code = Albumin Lvl) 3.5 3.5-5.0 [facility]2018-08-16 01:12:00 Test Item Value Reference Range Interpretation Comments CO2 (test code = CO2) 33 24-32 [facility]2018-08-16 01:12:00 Test Item Value Reference Range Interpretation Comments Calcium Lvl (test code = Calcium Lvl) 8.8 8.5-10.5 [facility]2018-08-16 01:12:00 Test Item Value Reference Range Interpretation Comments Total Protein (test code = Total 8.0 6.4-8.4 Protein) [facility]2018-08-16 01:12:00 Test Item Value Reference Range Interpretation Comments Bili Total (test code = Bili Total) 0.4 0.2-1.3 [facility]2018-08-16 01:12:00 Test Item Value Reference Range Interpretation Comments Alk Phos (test code = Alk Phos) 103 39-136 [place] 454208-08-16 01:12:00 Test Item Value Reference Range Interpretation Comments Sodium Lvl (test code = Sodium Lvl) 141 135-145 [facility]2018-08-16 01:12:00 Test Item Value Reference Range Interpretation Comments Potassium Lvl (test code = Potassium 3.8 3.5-5.1 Lvl) [facility]2018-08-16 01:12:00 Test Item Value Reference Range Interpretation Comments Chloride Lvl (test code = Chloride Lvl) 104 95-109 [facility]2018-08-16 01:12:00 Test Item Value Reference Range Interpretation Comments BUN (test code = BUN) 8 7-22 [facility]2018-08-16 01:12:00 Test Item Value Reference Range Interpretation Comments Glucose Lvl (test code = Glucose Lvl) 199 70-99 [facility]2018-08-16 01:12:00 Test Item Value Reference Range Interpretation Comments Creatinine Lvl (test code = Creatinine 0.76 0.50-1.40 Lvl) [facility]2018-08-16 01:12:00 Test Item Value Reference Range Interpretation Comments A/G Ratio (test code = A/G Ratio) 0.8 1 0.7-1.6 [facility]2018-08-16 01:12:00 Test Item Value Reference Range Interpretation Comments B/C Ratio (test code = B/C Ratio) 11 1 6-25 [facility]2018-08-16 01:12:00 Test Item Value Reference Range Interpretation Comments Globulin (test code = Globulin) 4.5 2.7-4.2 [facility]2018-08-16 01:12:00 Test Item Value Reference Range Interpretation Comments AGAP (test code = AGAP) 7.8 10.0-20.0 [facility]FrszuukMVFVXRYOOB7990-78-47 01:12:00 Test Item Value Reference Range Interpretation Comments Microcyte (test code = 1+ *ABN*(10/31/17 Microcyte) 8:12 PM) [facility] HospitalNkzrvreZDITIUJNYN2974-86-20 01:12:00 Test Item Value Reference Range Interpretation Comments Anisocyte (test code = 1+ *ABN*(10/31/17 Anisocyte) 8:12 PM) [place] 766048-08-16 01:12:00 Test Item Value Reference Range Interpretation Comments Hypochrom (test code = 1+ (10/31/17 8:12 PM) Hypochrom) [facility] HospitalYwyvdycVHWMJNOTJN7399-71-25 01:12:00 Test Item Value Reference Range Interpretation Comments Monocytes (test code = Monocytes) 5.9 2.0-12.0 [facility] HospitalQfaqxclFATOQADHQH7401-28-27 01:12:00 Test Item Value Reference Range Interpretation Comments Basophils (test code = 0.4 See_Comment [Aut omated message] The Basophils) system which ge nerated this result tra nsmitted reference range : <=1.0. The reference r matthieu was not used to int erpret this result as normal/abnormal . [facility] HospitalLdwtfybFPYJLEAULA3993-94-00 01:12:00 Test Item Value Reference Range Interpretation Comments Basophils # (test code 0.1 See_Comment [Aut omated message] The = Basophils #) system which generated this result tra nsmitted reference range : <=0.2. The reference r matthieu was not used to int erpret this result as normal/abnormal . [facility] HospitalFqvhdxbAOSBNEXPZO5139-84-26 01:12:00 Test Item Value Reference Range Interpretation Comments Eosinophils # (test code 0.2 See_Comment [A utomated message] The = Eosinophils #) system whic h generated this result tra nsmitted reference range : <=0.5. The reference r matthieu was not used to int erpret this result as normal/abnormal . [facility] HospitalXetnhmsCOZEMICSDL0625-18-03 01:12:00 Test Item Value Reference Range Interpretation Comments Monocytes # (test code 0.9 See_Comment [Aut omated message] The = Monocytes #) system which generated this result tra nsmitted reference range : <=0.8. The reference r matthieu was not used to int erpret this result as normal/abnormal . [facility] HospitalPijizleKDNBDADKYK0992-05-73 01:12:00 Test Item Value Reference Range Interpretation Comments Eosinophils (test code = 1.4 See_Comment [A utomated message] The Eosinophils) system which ge nerated this result tra nsmitted reference range : <=4.0. The reference r matthieu was not used to int erpret this result as normal/abnormal . [facility] HospitalGnesxdhAVTPYTOFZF5411-97-95 01:12:00 Test Item Value Reference Range Interpretation Comments Lymphocytes # (test code = Lymphocytes 2.9 1.0-5.5 #) [facility] HospitalYipwuloPFFXRADNNN5013-47-18 01:12:00 Test Item Value Reference Range Interpretation Comments Neutrophils # (test code = Neutrophils 10.8 1.5-8.1 #) [facility] HospitalHzrwyaoLAPCCJWHHO3102-48-70 01:12:00 Test Item Value Reference Range Interpretation Comments Lymphocytes (test code = Lymphocytes) 19.7 20.0-40.0 [facility] HospitalKffhabeBIDXNYHHJE7892-00-05 01:12:00 Test Item Value Reference Range Interpretation Comments Segs (test code = Segs) 72.6 45.0-75.0 [facility] HospitalZnqizzsMCDXLDUZVF1731-35-40 01:12:00 Test Item Value Reference Range Interpretation Comments RBC Morph (test code = Normal (10/31/17 8:12 RBC Morph) PM) [facility] HospitalGasbxhrEFZSNKVGAK4687-41-42 01:12:00 Test Item Value Reference Range Interpretation Comments Plt Morph (test code = Normal (10/31/17 8:12 Plt Morph) PM) [facility] HospitalHgceffkPMDBRTQTNP1868-92-50 01:12:00 Test Item Value Reference Range Interpretation Comments Platelet (test code = Platelet) 294 133-450 [facility] HospitalIoodawgSUFBRSBAJU3654-38-56 01:12:00 Test Item Value Reference Range Interpretation Comments MPV (test code = MPV) 8.5 7.4-10.4 [facility] HospitalYzqvlxtLHRKELZNWV2488-54-16 01:12:00 Test Item Value Reference Range Interpretation Comments RDW (test code = RDW) 17.1 11.5-14.5 [facility] HospitalCrirxypQJNTNNHWBZ0643-77-99 01:12:00 Test Item Value Reference Range Interpretation Comments MCH (test code = MCH) 24.2 pg 27.0-31.0 [facility] HospitalWfzwtmlSKPASCLHTU7542-30-63 01:12:00 Test Item Value Reference Range Interpretation Comments MCV (test code = MCV) 78.0 80.0-94.0 [facility] HospitalQznwgngNCSJZZMKPL0169-08-72 01:12:00 Test Item Value Reference Range Interpretation Comments MCHC (test code = MCHC) 31.0 32.0-36.0 [facility] HospitalUlonxfiFVRTUBMKSH9637-84-78 01:12:00 Test Item Value Reference Range Interpretation Comments Hgb (test code = Hgb) 13.3 14.0-18.0 [facility] HospitalVgzuxwuJLTWRBQXMV9328-38-80 01:12:00 Test Item Value Reference Range Interpretation Comments Hct (test code = Hct) 42.7 42.0-54.0 [facility] HospitalDdaseefTPDYZOOCQM1267-23-61 01:12:00 Test Item Value Reference Range Interpretation Comments WBC (test code = WBC) 14.9 3.7-10.4 [facility] HospitalFfzgwutWXJATVMNLZ2367-57-90 01:12:00 Test Item Value Reference Range Interpretation Comments RBC (test code = RBC) 5.48 4.70-6.10 [facility]2018-04-12 07:38:00 Test Item Value Reference Range Interpretation Comments Phosphorus (test code = Phosphorus) 3.4 2.5-4.5 [facility]ufvbehYGHHXRNHEFSB8918-57-68 07:38:00 Test Item Value Reference Range Interpretation Comments AGAP (test code = AGAP) 13.0 10.0-20.0 [facility]XbnquzgEZOMXQBVXVFO4195-22-50 07:38:00 Test Item Value Reference Range Interpretation Comments eGFR (test code = eGFR) 117 [facility] MichiganSnynxwaUBWRHAZLYUAL5125-67-82 07:38:00 Test Item Value Reference Range Interpretation Comments Glucose Lvl (test code = Glucose Lvl) 116 70-99 [facility]VancczpKXTIYIZFNNPW1047-04-02 07:38:00 Test Item Value Reference Range Interpretation Comments BUN (test code = BUN) 8 7-22 [facility] MichiganRpyovjvRQGNXGXCVJCG3507-20-21 07:38:00 Test Item Value Reference Range Interpretation Comments CO2 (test code = CO2) 29 24-32 [facility] MichiganFuaymfnKFGVBPPYPWKC2537-27-76 07:38:00 Test Item Value Reference Range Interpretation Comments Calcium Lvl (test code = Calcium Lvl) 8.9 8.5-10.5 [facility] MichiganYeppbrgMHKNKGWSZCHL7092-38-43 07:38:00 Test Item Value Reference Range Interpretation Comments Potassium Lvl (test code = Potassium 4.0 3.5-5.1 Lvl) [facility]NhzejkkKIFGKIXXXKWY8281-43-42 07:38:00 Test Item Value Reference Range Interpretation Comments Creatinine Lvl (test code = Creatinine 0.66 0.50-1.40 Lvl) [facility] MichiganWhbtrewMJCWQKHBLBTA4512-36-61 07:38:00 Test Item Value Reference Range Interpretation Comments Sodium Lvl (test code = Sodium Lvl) 142 135-145 [facility] MichiganSvygjslKWQGRKHGNVEG4272-43-29 07:38:00 Test Item Value Reference Range Interpretation Comments Chloride Lvl (test code = Chloride Lvl) 104 95-109 [facility] HospitalFfemlmgIGPCNQMPDT5797-00-58 07:38:00 Test Item Value Reference Range Interpretation Comments Lymphocytes # (test code = Lymphocytes 3.1 1.0-5.5 #) [facility] HospitalJmhvlzzYHNBYPOSXI6645-59-97 07:38:00 Test Item Value Reference Range Interpretation Comments Segs-Bands # (test code = Segs-Bands #) 6.7 1.5-8.1 [facility] HospitalEyquqoiVQZOCVBWDV3136-62-20 07:38:00 Test Item Value Reference Range Interpretation Comments Monocytes # (test code 0.8 See_Comment [Aut omated message] The = Monocytes #) system which generated this result tra nsmitted reference range : <=0.8. The reference r matthieu was not used to int erpret this result as normal/abnormal . [facility] HospitalLuowzdqHUTLYLHOXH7338-27-43 07:38:00 Test Item Value Reference Range Interpretation Comments Basophils (test code = 0.6 See_Comment [Aut omated message] The Basophils) system which ge nerated this result tra nsmitted reference range : <=1.0. The reference r matthieu was not used to int erpret this result as normal/abnormal . [facility] HospitalAsknajjYIIVJYZPVT0351-57-91 07:38:00 Test Item Value Reference Range Interpretation Comments Monocytes (test code = Monocytes) 7.2 2.0-12.0 [facility] HospitalLoyzwcqAXYAZYDCRI3928-50-88 07:38:00 Test Item Value Reference Range Interpretation Comments Eosinophils # (test code 0.3 See_Comment [A utomated message] The = Eosinophils #) system whic h generated this result tra nsmitted reference range : <=0.5. The reference r matthieu was not used to int erpret this result as normal/abnormal . [facility] HospitalWvnsqgyMUZGTRSQIO4756-82-66 07:38:00 Test Item Value Reference Range Interpretation Comments Basophils # (test code 0.1 See_Comment [Aut omated message] The = Basophils #) system which generated this result tra nsmitted reference range : <=0.2. The reference r matthieu was not used to int erpret this result as normal/abnormal . [facility] HospitalUervmvvENRJTJDKHA8298-03-97 07:38:00 Test Item Value Reference Range Interpretation Comments Microcyte (test code = 1+ *ABN*(06/28/17 Microcyte) 2:38 AM) [facility] HospitalNtsaopdKWPYWFDCBB8930-79-39 07:38:00 Test Item Value Reference Range Interpretation Comments Segs (test code = Segs) 61.0 45.0-75.0 [facility] HospitalGafvehdYEPUHTDGPG2179-42-43 07:38:00 Test Item Value Reference Range Interpretation Comments Lymphocytes (test code = Lymphocytes) 28.4 20.0-40.0 [facility] HospitalXyasqocOUCKNUWZPQ3819-21-65 07:38:00 Test Item Value Reference Range Interpretation Comments Eosinophils (test code = 2.8 See_Comment [A utomated message] The Eosinophils) system which ge nerated this result tra nsmitted reference range : <=4.0. The reference r matthieu was not used to int erpret this result as normal/abnormal . [facility] HospitalKtvjeslPTZSAECFFD8001-56-79 07:38:00 Test Item Value Reference Range Interpretation Comments MPV (test code = MPV) 9.2 7.4-10.4 [facility] HospitalUbwiknaVFLPDVDPTT1568-98-87 07:38:00 Test Item Value Reference Range Interpretation Comments Platelet (test code = Platelet) 234 133-450 [facility] HospitalJizoxeqRCLDAOTDUT5658-22-88 07:38:00 Test Item Value Reference Range Interpretation Comments MCH (test code = MCH) 24.8 pg 27.0-31.0 [facility] HospitalCibvxhpHHNOVHKTDG1349-42-57 07:38:00 Test Item Value Reference Range Interpretation Comments Hct (test code = Hct) 44.6 42.0-54.0 [facility] HospitalNqljzcrBFECVJWZXL8556-74-23 07:38:00 Test Item Value Reference Range Interpretation Comments MCV (test code = MCV) 77.6 80.0-94.0 [facility] HospitalOhfqwooCGRWJDLEYE4636-23-56 07:38:00 Test Item Value Reference Range Interpretation Comments RDW (test code = RDW) 17.1 11.5-14.5 [facility] HospitalCutpnkqFFSUBXTWUS7943-15-69 07:38:00 Test Item Value Reference Range Interpretation Comments MCHC (test code = MCHC) 32.0 32.0-36.0 [facility] HospitalRtujnalUZDIBFCFRX8805-62-55 07:38:00 Test Item Value Reference Range Interpretation Comments WBC (test code = WBC) 11.0 3.7-10.4 [facility] HospitalUvifxqvVPSAEYXIYX1087-00-00 07:38:00 Test Item Value Reference Range Interpretation Comments Hgb (test code = Hgb) 14.2 14.0-18.0 [facility] HospitalTfsoganUAGLYVPWVR7357-23-95 07:38:00 Test Item Value Reference Range Interpretation Comments RBC (test code = RBC) 5.75 4.70-6.10 [facility]2018-04-11 09:51:00 Test Item Value Reference Range Interpretation Comments Phosphorus (test code = Phosphorus) 3.7 2.5-4.5 [facility]zedEPXAYRRATR4271-56-25 09:51:00 Test Item Value Reference Range Interpretation Comments HIV Ag/Ab 4th Gen Negative *NA*(06/27/17 (test code = HIV 4:51 AM) Ag/Ab 4th Gen) [facility] CenterBlouprjOKWZHGTGRS9417-86-38 09:51:00 Test Item Value Reference Range Interpretation Comments Treponemal Ab (test code Non Reactive = Treponemal Ab) *NA*(06/27/17 4:51 AM) [facility]2018-04-10 09:57:00 Test Item Value Reference Range Interpretation Comments Phosphorus (test code = Phosphorus) 3.2 2.5-4.5 [facility]2018-04-10 09:57:00 Test Item Value Reference Range Interpretation Comments Magnesium Lvl (test code = Magnesium 2.0 1.8-2.4 Lvl) [facility]2018-04-10 09:57:00 Test Item Value Reference Range Interpretation Comments eGFR (test code = eGFR) 114 [facility]2018-04-10 09:57:00 Test Item Value Reference Range Interpretation Comments BUN (test code = BUN) 9 7-22 [facility]2018-04-10 09:57:00 Test Item Value Reference Range Interpretation Comments Creatinine Lvl (test code = Creatinine 0.70 0.50-1.40 Lvl) [facility]2018-04-10 09:57:00 Test Item Value Reference Range Interpretation Comments Glucose Lvl (test code = Glucose Lvl) 133 70-99 [facility]2018-04-10 09:57:00 Test Item Value Reference Range Interpretation Comments Sodium Lvl (test code = Sodium Lvl) 138 135-145 [facility]2018-04-10 09:57:00 Test Item Value Reference Range Interpretation Comments Potassium Lvl (test code = Potassium 3.6 3.5-5.1 Lvl) [facility]2018-04-10 09:57:00 Test Item Value Reference Range Interpretation Comments ALT (test code = ALT) 53 See_Comment [Auto mated message] The system which ge nerated this result transmit yanely reference range : <=65. The reference range was not used to interpr et this result as brielle l/abnormal. [facility]2018-04-10 09:57:00 Test Item Value Reference Range Interpretation Comments AST (test code = AST) 44 See_Comment [Auto mated message] The system which ge nerated this result transmit yanely reference range : <=37. The reference range was not used to interpr et this result as brielle l/abnormal. [facility]2018-04-10 09:57:00 Test Item Value Reference Range Interpretation Comments Albumin Lvl (test code = Albumin Lvl) 3.5 3.5-5.0 [facility]2018-04-10 09:57:00 Test Item Value Reference Range Interpretation Comments Calcium Lvl (test code = Calcium Lvl) 8.6 8.5-10.5 [facility]2018-04-10 09:57:00 Test Item Value Reference Range Interpretation Comments Total Protein (test code = Total 7.9 6.4-8.4 Protein) [facility]2018-04-10 09:57:00 Test Item Value Reference Range Interpretation Comments Chloride Lvl (test code = Chloride Lvl) 104 95-109 [facility]2018-04-10 09:57:00 Test Item Value Reference Range Interpretation Comments CO2 (test code = CO2) 27 24-32 [facility]2018-04-10 09:57:00 Test Item Value Reference Range Interpretation Comments Alk Phos (test code = Alk Phos) 96 39-136 [facility]2018-04-10 09:57:00 Test Item Value Reference Range Interpretation Comments Bili Total (test code = Bili Total) 0.4 0.2-1.3 [facility]2018-04-10 09:57:00 Test Item Value Reference Range Interpretation Comments A/G Ratio (test code = A/G Ratio) 0.8 1 0.7-1.6 [facility]2018-04-10 09:57:00 Test Item Value Reference Range Interpretation Comments Globulin (test code = Globulin) 4.4 2.7-4.2 [facility]2018-04-10 09:57:00 Test Item Value Reference Range Interpretation Comments B/C Ratio (test code = B/C Ratio) 13 1 6-25 [place] 454208-04-10 09:57:00 Test Item Value Reference Range Interpretation Comments AGAP (test code = AGAP) 10.6 10.0-20.0 [facility] HospitalRmklyxmSGZMHDEWJF8099-61-36 09:57:00 Test Item Value Reference Range Interpretation Comments Eosinophils # (test code 0.2 See_Comment [A utomated message] The = Eosinophils #) system whic h generated this result tra nsmitted reference range : <=0.5. The reference r matthieu was not used to int erpret this result as normal/abnormal . [facility] HospitalCcqkwpnGXMRFANRPS5114-04-38 09:57:00 Test Item Value Reference Range Interpretation Comments Basophils # (test code 0.1 See_Comment [Aut omated message] The = Basophils #) system which generated this result tra nsmitted reference range : <=0.2. The reference r matthieu was not used to int erpret this result as normal/abnormal . [facility]EvfcahxSTDYAURWGH1864-42-60 09:57:00 Test Item Value Reference Range Interpretation Comments Segs-Bands # (test code = Segs-Bands #) 6.4 1.5-8.1 [facility] HospitalDzzkzfbADTGURGCQH4141-25-93 09:57:00 Test Item Value Reference Range Interpretation Comments Lymphocytes # (test code = Lymphocytes 3.0 1.0-5.5 #) [facility] HospitalMmevqrcCAZQPVKLMO5452-36-32 09:57:00 Test Item Value Reference Range Interpretation Comments Monocytes # (test code 0.9 See_Comment [Aut omated message] The = Monocytes #) system which generated this result tra nsmitted reference range : <=0.8. The reference r matthieu was not used to int erpret this result as normal/abnormal . [facility] HospitalZaytcwrZYYWCBBPOV6587-13-25 09:57:00 Test Item Value Reference Range Interpretation Comments Microcyte (test code = 1+ *ABN*(06/26/17 Microcyte) 4:57 AM) [facility] HospitalTkmzegoNFTQWKQXPC4852-40-89 09:57:00 Test Item Value Reference Range Interpretation Comments Segs (test code = Segs) 60.4 45.0-75.0 [facility] HospitalBscsmvbHQJLSZPRSF2015-53-71 09:57:00 Test Item Value Reference Range Interpretation Comments Lymphocytes (test code = Lymphocytes) 28.2 20.0-40.0 [facility] HospitalNeolvvkZCZSWGSJHM6125-00-98 09:57:00 Test Item Value Reference Range Interpretation Comments Basophils (test code = 0.5 See_Comment [Aut omated message] The Basophils) system which ge nerated this result tra nsmitted reference range : <=1.0. The reference r matthieu was not used to int erpret this result as normal/abnormal . [facility] HospitalZjsvrbhQLQOPOAVPU0461-18-17 09:57:00 Test Item Value Reference Range Interpretation Comments Monocytes (test code = Monocytes) 8.6 2.0-12.0 [facility] HospitalLedcieuROGTXUPTBY6678-29-83 09:57:00 Test Item Value Reference Range Interpretation Comments Eosinophils (test code = 2.3 See_Comment [A utomated message] The Eosinophils) system which ge nerated this result tra nsmitted reference range : <=4.0. The reference r matthieu was not used to int erpret this result as normal/abnormal . [facility] HospitalScmscmoZQWKXQYUQW5435-29-13 09:57:00 Test Item Value Reference Range Interpretation Comments MCH (test code = MCH) 25.3 pg 27.0-31.0 [facility] HospitalWyvnxdiGKDSEURFPK0704-43-70 09:57:00 Test Item Value Reference Range Interpretation Comments MCHC (test code = MCHC) 32.8 32.0-36.0 [facility] HospitalIqrpvzaFTQAKKNDFS1172-66-16 09:57:00 Test Item Value Reference Range Interpretation Comments MPV (test code = MPV) 8.9 7.4-10.4 [facility] HospitalOyszchuALVXJHACBG0633-06-72 09:57:00 Test Item Value Reference Range Interpretation Comments RDW (test code = RDW) 16.7 11.5-14.5 [facility]JkjzgngNAIFUUCGOG8122-48-75 09:57:00 Test Item Value Reference Range Interpretation Comments Platelet (test code = Platelet) 220 133-450 [facility]cuxkklEPFEIJWABE7201-01-92 09:57:00 Test Item Value Reference Range Interpretation Comments Hct (test code = Hct) 42.2 42.0-54.0 [facility] HospitalElekgmqSTKQOPIRHU7854-23-91 09:57:00 Test Item Value Reference Range Interpretation Comments MCV (test code = MCV) 77.3 80.0-94.0 [facility] HospitalSeonmaoSAWUHZULBP3765-95-06 09:57:00 Test Item Value Reference Range Interpretation Comments RBC (test code = RBC) 5.46 4.70-6.10 [facility] HospitalCeiyxevUWKBUEJECC7118-54-35 09:57:00 Test Item Value Reference Range Interpretation Comments Hgb (test code = Hgb) 13.8 14.0-18.0 [facility] HospitalBegixxwIYDGFRGYJM9997-85-72 09:57:00 Test Item Value Reference Range Interpretation Comments WBC (test code = WBC) 10.5 3.7-10.4 [facility] HospitalNewpjcbEYDXHQGKQE6133-14-48 09:57:00 Test Item Value Reference Range Interpretation Comments HIV Ag/Ab 4th Gen Negative *NA*(06/26/17 (test code = HIV 4:57 AM) Ag/Ab 4th Gen) [facility] HospitalannPARATHYROID [id number] 09:57:00 Test Item Value Reference Range Interpretation Comments Ca Ion WB (test code = Ca Ion WB) 1.03 1.05-1.25 [facility] HospitalannPARATHYROID FRKGMPP8579-00-38 09:57:00 Test Item Value Reference Range Interpretation Comments Ca Norm WB (test code = Ca Norm WB) 1.01 1.05-1.25 [facility]annDR[facility] [id number] 18:23:00 Test Item Value Reference Range Interpretation Comments U Propoxyph Scr (test Negative *NA*(06/25/17 code = U Propoxyph Scr) 1:23 PM) [facility] HospitalannDR[facility] [id number] 18:23:00 Test Item Value Reference Range Interpretation Comments U Methadone Scr (test Negative *NA*(06/25/17 code = U Methadone Scr) 1:23 PM) [facility] CEJJSM3601-11-15 18:23:00 Test Item Value Reference Range Interpretation Comments U Phencyc Scr (test Negative *NA*(06/25/17 code = U Phencyc Scr) 1:23 PM) [facility] [id number] 18:23:00 Test Item Value Reference Range Interpretation Comments UDS Note (test code = See Note (06/25/17 1:23 UDS Note) PM) [facility] [id number] 18:23:00 Test Item Value Reference Range Interpretation Comments U Stephanie Scr (test code Negative *NA*(06/25/17 = U Stephanie Scr) 1:23 PM) [facility] [id number] 18:23:00 Test Item Value Reference Range Interpretation Comments U Cocaine Scr (test Negative *NA*(06/25/17 code = U Cocaine Scr) 1:23 PM) [facility] [id number] 18:23:00 Test Item Value Reference Range Interpretation Comments U Benzodia Scr (test Negative *NA*(06/25/17 code = U Benzodia Scr) 1:23 PM) [facility] [id number] 18:23:00 Test Item Value Reference Range Interpretation Comments U Amph Scr (test code Negative *NA*(06/25/17 = U Amph Scr) 1:23 PM) [facility] [id number] 18:23:00 Test Item Value Reference Range Interpretation Comments U Opiate Scr (test Negative *NA*(06/25/17 code = U Opiate Scr) 1:23 PM) [facility] [id number] 18:23:00 Test Item Value Reference Range Interpretation Comments U Cannab Scr (test Positive *ABN*(06/25/17 code = U Cannab Scr) 1:23 PM) [facility] [id number] 18:23:00 Test Item Value Reference Range Interpretation Comments UA Urobilinogen (test code = UA 2.0 0.1-1.0 Urobilinogen) [facility] [id number] 18:23:00 Test Item Value Reference Range Interpretation Comments UA Nitrite (test code Negative (06/25/17 1:23 = UA Nitrite) PM) [facility] AND [id number] 18:23:00 Test Item Value Reference Range Interpretation Comments UA Leuk Est (test Negative (06/25/17 1:23 code = UA Leuk Est) PM) [facility] AND [id number] 18:23:00 Test Item Value Reference Range Interpretation Comments UA WBC (test code = 1 See_Comment [Automa yanely message] The UA WBC) system which ge nerated this result transmit yanely reference range : <=5. The reference range was not used to interpr et this result as brielle l/abnormal. [facility] AND [id number] 18:23:00 Test Item Value Reference Range Interpretation Comments UA Bacteria (test code = UA Few /HPF Bacteria) [facility] AND [id number] 18:23:00 Test Item Value Reference Range Interpretation Comments UA Mucus (test code = UA Mucus) Many /LPF [facility] AND [id number] 18:23:00 Test Item Value Reference Range Interpretation Comments UA Sq Epi (test code = UA Sq Epi) None Seen [facility] AND [id number] 18:23:00 Test Item Value Reference Range Interpretation Comments UA Bili (test code = Negative *NA*(06/25/17 UA Bili) 1:23 PM) [facility] AND [id number] 18:23:00 Test Item Value Reference Range Interpretation Comments UA Ketones (test code = UA Negative mg/dL Ketones) [facility] AND [id number] 18:23:00 Test Item Value Reference Range Interpretation Comments UA Blood (test code = Negative (06/25/17 1:23 UA Blood) PM) [facility] AND [id number] 18:23:00 Test Item Value Reference Range Interpretation Comments UA Turbidity (test code = Clear (06/25/17 1:23 UA Turbidity) PM) [facility] AND [id number] 18:23:00 Test Item Value Reference Range Interpretation Comments UA Color (test code = Yellow *NA*(06/25/17 1:23 UA Color) PM) [facility] AND [id number] 18:23:00 Test Item Value Reference Range Interpretation Comments UA Spec Grav (test code = UA Spec 1.022 1 Grav) [facility] AND [id number] 18:23:00 Test Item Value Reference Range Interpretation Comments UA Protein (test code = UA Protein) 20 mg/dL [facility] AND [id number] 18:23:00 Test Item Value Reference Range Interpretation Comments UA pH (test code = UA pH) 5.5 1 5.0-8.0 [facility] AND [id number] 18:23:00 Test Item Value Reference Range Interpretation Comments UA Glucose (test code = UA Glucose) 70 mg/dL [facility] [id number] 17:07:00 Test Item Value Reference Range Interpretation Comments Troponin-I (test code no gt See_Comment [Auto mated message] The = Troponin-I) system which g enerated this result transmit yanely reference range : <=0.40. The reference r matthieu was not used to interpr et this result as brielle l/abnormal. [facility] [id number] 17:07:00 Test Item Value Reference Range Interpretation Comments BNP (test code = BNP) 5 [facility] [id number] 17:07:00 Test Item Value Reference Range Interpretation Comments Troponin-T (test code no gt See_Comment [Auto mated message] The = Troponin-T) system which g enerated this result transmit yanely reference range : <=0.100. The reference r matthieu was not used to interpr et this result as brielle l/abnormal. [facility] H[id number] 17:07:00 Test Item Value Reference Range Interpretation Comments D-Dimer (test code = D-Dimer) 0.27 [facility] Hos[id number] 17:07:00 Test Item Value Reference Range Interpretation Comments HIV Ag/Ab 4th Gen Negative *NA*(06/25/17 (test code = HIV 12:07 PM) Ag/Ab 4th Gen) [facility] HospitalYxhasmqRVEKOQNCRM2377-81-30 17:07:00 Test Item Value Reference Range Interpretation Comments Treponemal Ab (test code Non Reactive = Treponemal Ab) *NA*(06/25/17 12:07 PM) [facility]2018-04-08 13:42:00 Test Item Value Reference Range Interpretation Comments eGFR (test code = eGFR) 104 [facility]2018-04-08 13:42:00 Test Item Value Reference Range Interpretation Comments Sodium Lvl (test code = Sodium Lvl) 141 135-145 [facility]2018-04-08 13:42:00 Test Item Value Reference Range Interpretation Comments Potassium Lvl (test code = Potassium 4.1 3.5-5.1 Lvl) [facility]2018-04-08 13:42:00 Test Item Value Reference Range Interpretation Comments Chloride Lvl (test code = Chloride Lvl) 102 95-109 [facility]2018-04-08 13:42:00 Test Item Value Reference Range Interpretation Comments CO2 (test code = CO2) 24 24-32 [facility]2018-04-08 13:42:00 Test Item Value Reference Range Interpretation Comments AST (test code = AST) 48 See_Comment [Auto mated message] The system which ge nerated this result transmit yanely reference range : <=37. The reference range was not used to interpr et this result as brielle l/abnormal. [facility]2018-04-08 13:42:00 Test Item Value Reference Range Interpretation Comments Albumin Lvl (test code = Albumin Lvl) 3.2 3.5-5.0 [facility]2018-04-08 13:42:00 Test Item Value Reference Range Interpretation Comments ALT (test code = ALT) 54 See_Comment [Auto mated message] The system which ge nerated this result transmit yanely reference range : <=65. The reference range was not used to interpr et this result as brielle l/abnormal. [facility]2018-04-08 13:42:00 Test Item Value Reference Range Interpretation Comments Total Protein (test code = Total 7.6 6.4-8.4 Protein) [facility]2018-04-08 13:42:00 Test Item Value Reference Range Interpretation Comments Calcium Lvl (test code = Calcium Lvl) 8.3 8.5-10.5 [facility]2018-04-08 13:42:00 Test Item Value Reference Range Interpretation Comments Bili Total (test code = Bili Total) 0.3 0.2-1.3 [facility]2018-04-08 13:42:00 Test Item Value Reference Range Interpretation Comments Alk Phos (test code = Alk Phos) 106 39-136 [facility]2018-04-08 13:42:00 Test Item Value Reference Range Interpretation Comments Glucose Lvl (test code = Glucose Lvl) 259 70-99 [facility]2018-04-08 13:42:00 Test Item Value Reference Range Interpretation Comments Creatinine Lvl (test code = Creatinine 0.87 0.50-1.40 Lvl) [facility]2018-04-08 13:42:00 Test Item Value Reference Range Interpretation Comments BUN (test code = BUN) 11 7-22 [facility]2018-04-08 13:42:00 Test Item Value Reference Range Interpretation Comments AGAP (test code = AGAP) 19.1 10.0-20.0 [facility]2018-04-08 13:42:00 Test Item Value Reference Range Interpretation Comments A/G Ratio (test code = A/G Ratio) 0.7 1 0.7-1.6 [facility]2018-04-08 13:42:00 Test Item Value Reference Range Interpretation Comments Globulin (test code = Globulin) 4.4 2.7-4.2 [facility]2018-04-08 13:42:00 Test Item Value Reference Range Interpretation Comments B/C Ratio (test code = B/C Ratio) 13 1 6-25 [facility] HospitalMoilkenQSIWEBTLLU0969-98-06 13:42:00 Test Item Value Reference Range Interpretation Comments Hgb (test code = Hgb) 14.6 14.0-18.0 [facility] HospitalMqndzfhMILCSPJRKO0727-00-22 13:42:00 Test Item Value Reference Range Interpretation Comments MCV (test code = MCV) 77.8 80.0-94.0 [facility] HospitalOtepmdkYKRGCMAZJI0725-64-74 13:42:00 Test Item Value Reference Range Interpretation Comments Hct (test code = Hct) 45.1 42.0-54.0 [facility] HospitalEovvvggJEEECYIFAS5490-01-44 13:42:00 Test Item Value Reference Range Interpretation Comments MPV (test code = MPV) 9.2 7.4-10.4 [facility] HospitalRiqdzkoCUOPBEIPXQ0573-84-92 13:42:00 Test Item Value Reference Range Interpretation Comments MCHC (test code = MCHC) 32.4 32.0-36.0 [facility] HospitalRzfgfejZYBYHWRKWC8540-67-06 13:42:00 Test Item Value Reference Range Interpretation Comments MCH (test code = MCH) 25.2 pg 27.0-31.0 [facility] HospitalXbgiduhVMCFDLPIAG3598-59-83 13:42:00 Test Item Value Reference Range Interpretation Comments RBC (test code = RBC) 5.80 4.70-6.10 [facility] HospitalQhennveXAYTUGJISK4475-38-23 13:42:00 Test Item Value Reference Range Interpretation Comments WBC (test code = WBC) 13.2 3.7-10.4 [facility] HospitalZadfqjhHOPUOCEWLY0054-28-99 13:42:00 Test Item Value Reference Range Interpretation Comments RDW (test code = RDW) 17.6 11.5-14.5 [facility] HospitalEgagojuKJWFMWHWHJ9193-34-16 13:42:00 Test Item Value Reference Range Interpretation Comments Platelet (test code = Platelet) 234 133-450 [facility] HospitalNiafdewOWYWYMHPZK5739-12-17 13:42:00 Test Item Value Reference Range Interpretation Comments Hypochrom (test code = 1+ (06/24/17 8:42 AM) Hypochrom) [facility] HospitalLwnozmcWGHCUIPXHG2668-77-40 13:42:00 Test Item Value Reference Range Interpretation Comments Large Plt (test code = Large Plt) Slight [facility] HospitalSjoiogxPGBXTQOCQR4104-87-65 13:42:00 Test Item Value Reference Range Interpretation Comments Anisocyte (test code = 1+ *ABN*(06/24/17 8:42 Anisocyte) AM) [facility] HospitalAoaqnmiNJNTMFPNLE7917-50-46 13:42:00 Test Item Value Reference Range Interpretation Comments Atypical Lymphs (test code = Atypical 0.0 Lymphs) [facility] HospitalVmyypqzLEVEBEBYFG2483-88-04 13:42:00 Test Item Value Reference Range Interpretation Comments Microcyte (test code = 1+ *ABN*(06/24/17 8:42 Microcyte) AM) [facility] HospitalRjudmysREEHULFOGF2096-24-81 13:42:00 Test Item Value Reference Range Interpretation Comments Eosinophils (test code = 3.0 See_Comment [A utomated message] The Eosinophils) system which ge nerated this result tra nsmitted reference range : <=4.0. The reference r matthieu was not used to int erpret this result as normal/abnormal . [facility] HospitalEmnqlgxVMUTNLHPSQ2758-20-10 13:42:00 Test Item Value Reference Range Interpretation Comments Monocytes (test code = Monocytes) 7.0 2.0-12.0 [facility] HospitalAvobjwmOESVFOFOPT0110-99-94 13:42:00 Test Item Value Reference Range Interpretation Comments Segs-Bands # (test code = Segs-Bands #) 9.6 1.5-8.1 [facility] HospitalIpvqbuzBTFDFUMNBI4413-10-76 13:42:00 Test Item Value Reference Range Interpretation Comments Lymphocytes # (test code = Lymphocytes 2.2 1.0-5.5 #) [facility] HospitalCplrstuACAVMUGZTW2127-96-93 13:42:00 Test Item Value Reference Range Interpretation Comments Bands (test code = 1.0 See_Comment [Automat ed message] The Bands) system which ge nerated this result transmit yanely reference range : <=11.0. The reference r matthieu was not used to interpr et this result as brielle l/abnormal. [facility] HospitalEewljpdCTNEPSBYWD5669-80-34 13:42:00 Test Item Value Reference Range Interpretation Comments Segs (test code = Segs) 72.0 45.0-75.0 [facility] HospitalDrwffbfINAOYRJFBY6894-43-60 13:42:00 Test Item Value Reference Range Interpretation Comments Lymphocytes (test code = Lymphocytes) 17.0 20.0-40.0 [facility] HospitalUdmmrcsZRSBKDOVJC9926-93-41 13:42:00 Test Item Value Reference Range Interpretation Comments Eosinophils # (test code 0.4 See_Comment [A utomated message] The = Eosinophils #) system whic h generated this result tra nsmitted reference range : <=0.5. The reference r matthieu was not used to int erpret this result as normal/abnormal . [facility] HospitalEijmlitQBOSLLHKLB9063-46-69 13:42:00 Test Item Value Reference Range Interpretation Comments Monocytes # (test code 0.9 See_Comment [Aut omated message] The = Monocytes #) system which generated this result tra nsmitted reference range : <=0.8. The reference r matthieu was not used to int erpret this result as normal/abnormal . [facility]SgkqhgiVPRITSYEBE5723-06-12 05:41:00 Test Item Value Reference Range Interpretation Comments Treponemal Ab (test code Non Reactive = Treponemal Ab) *NA*(06/24/17 12:41 AM) [facility] HospitalHbffiifMRXXAB9962-18-84 05:41:00 Test Item Value Reference Range Interpretation Comments CHD Risk (test code = CHD Risk) 6.88 1 4.00-7.30 [facility] HospitalBajqopzGOYYDS7033-28-12 05:41:00 Test Item Value Reference Range Interpretation Comments LDL (Calculated) (test code = LDL 80 (Calculated)) [facility] HospitalFihwsmzGAYKJJ8886-98-28 05:41:00 Test Item Value Reference Range Interpretation Comments VLDL (test code = VLDL) 67 1 [facility] HospitalWcpdfjhJAYERS5184-40-47 05:41:00 Test Item Value Reference Range Interpretation Comments HDL (test code = HDL) 25 [facility] HospitalQifwwmbQXIMFV7516-96-46 05:41:00 Test Item Value Reference Range Interpretation Comments Chol (test code = Chol) 172 [facility] HospitalRgmzzqpEQUAHW4490-67-10 05:41:00 Test Item Value Reference Range Interpretation Comments Trig (test code = Trig) 335 [facility] HospitalSPECIAL QTADTZFDE6204-98-62 05:41:00 Test Item Value Reference Range Interpretation Comments Hgb A1C (test code = Hgb A1C) 8.6 [facility] HospitalCARDIAC PQMCRBD7985-42-15 10:05:00 Test Item Value Reference Range Interpretation Comments Troponin-I (test code 0.23 See_Comment [Auto mated message] The = Troponin-I) system which g enerated this result transmit yanely reference range : <=0.40. The reference r matthieu was not used to interpr et this result as brielle l/abnormal. [facility] HospitalSpeakUpCHEM ZZRKB6447-09-37 10:05:00 Test Item Value Reference Range Interpretation Comments Magnesium Lvl (test code = Magnesium 1.9 1.8-2.4 Lvl) [facility] HospitalSpeakUpCHEM [id number] 10:05:00 Test Item Value Reference Range Interpretation Comments Glucose Lvl (test code = Glucose Lvl) 131 70-99 [facility] HospitalBastion Security Installations [id number] 10:05:00 Test Item Value Reference Range Interpretation Comments Potassium Lvl (test code = Potassium 3.1 3.5-5.1 Lvl) [facility]2017-09-30 10:05:00 Test Item Value Reference Range Interpretation Comments Sodium Lvl (test code = Sodium Lvl) 136 135-145 [facility]2017-09-30 10:05:00 Test Item Value Reference Range Interpretation Comments Creatinine Lvl (test code = Creatinine 0.68 0.50-1.40 Lvl) [facility]2017-09-30 10:05:00 Test Item Value Reference Range Interpretation Comments BUN (test code = BUN) 8 7-22 [facility]2017-09-30 10:05:00 Test Item Value Reference Range Interpretation Comments Chloride Lvl (test code = Chloride Lvl) 101 95-109 [facility]2017-09-30 10:05:00 Test Item Value Reference Range Interpretation Comments Calcium Lvl (test code = Calcium Lvl) 8.5 8.5-10.5 [facility]2017-09-30 10:05:00 Test Item Value Reference Range Interpretation Comments CO2 (test code = CO2) 26 24-32 [facility]2017-09-30 10:05:00 Test Item Value Reference Range Interpretation Comments AGAP (test code = AGAP) 12.1 10.0-20.0 [facility]2017-09-30 10:05:00 Test Item Value Reference Range Interpretation Comments eGFR (test code = eGFR) 116 [facility]2017-09-30 09:15:00 Test Item Value Reference Range Interpretation Comments Lactic Acid Lvl (test code = Lactic 0.7 0.5-2.2 Acid Lvl) [facility] AND [id number] 06:47:00 Test Item Value Reference Range Interpretation Comments UA Glucose (test code Negative (12/16/16 1:47 = UA Glucose) AM) [facility] AND [id number] 06:47:00 Test Item Value Reference Range Interpretation Comments UA Color (test code = Yellow *NA*(12/16/16 UA Color) 1:47 AM) [facility] AND [id number] 06:47:00 Test Item Value Reference Range Interpretation Comments UA Bili (test code = Negative *NA*(12/16/16 UA Bili) 1:47 AM) [facility] AND [id number] 06:47:00 Test Item Value Reference Range Interpretation Comments UA Nitrite (test code Negative (12/16/16 1:47 = UA Nitrite) AM) [facility] AND [id number] 06:47:00 Test Item Value Reference Range Interpretation Comments UA Urobilinogen (test code = UA 0.2 0.1-1.0 Urobilinogen) [facility] AND [id number] 06:47:00 Test Item Value Reference Range Interpretation Comments UA Blood (test code = Trace *ABN*(12/16/16 UA Blood) 1:47 AM) [facility] AND [id number] 06:47:00 Test Item Value Reference Range Interpretation Comments UA Turbidity (test code = Clear (12/16/16 1:47 UA Turbidity) AM) [facility] AND [id number] 06:47:00 Test Item Value Reference Range Interpretation Comments UA Protein (test code Negative (12/16/16 1:47 = UA Protein) AM) [facility] AND [id number] 06:47:00 Test Item Value Reference Range Interpretation Comments UA Spec Grav (test code = UA Spec 1.022 1 Grav) [facility] AND [id number] 06:47:00 Test Item Value Reference Range Interpretation Comments UA Ketones (test code Negative *NA*(12/16/16 = UA Ketones) 1:47 AM) [facility] AND [id number] 06:47:00 Test Item Value Reference Range Interpretation Comments UA pH (test code = UA pH) 6.0 1 5.0-8.0 [facility] AND [id number] 06:47:00 Test Item Value Reference Range Interpretation Comments UA Leuk Est (test Negative (12/16/16 1:47 code = UA Leuk Est) AM) [facility] AND [id number] 06:47:00 Test Item Value Reference Range Interpretation Comments UA RBC (test code = 0-2 /HPF See_Comment [Automa yanely message] The UA RBC) system which ge nerated this result tra nsmitted reference range : <=2. The reference range was not used to interpr et this result as brielle l/abnormal. [facility] AND [id number] 06:47:00 Test Item Value Reference Range Interpretation Comments UA Sq Epi (test code = None Seen (12/16/16 1:47 UA Sq Epi) AM) [facility] AND [id number] 06:47:00 Test Item Value Reference Range Interpretation Comments UA WBC (test code = UA WBC) 0-2 /HPF [facility] AND [id number] 06:47:00 Test Item Value Reference Range Interpretation Comments UA Bacteria (test code = None Seen (12/16/16 UA Bacteria) 1:47 AM) [facility]2017-09-30 01:49:00 Test Item Value Reference Range Interpretation Comments Lipase Lvl (test code = Lipase Lvl) 130 73-393 [facility]2017-09-30 01:49:00 Test Item Value Reference Range Interpretation Comments AST (test code = AST) 23 See_Comment [Auto mated message] The system which ge nerated this result transmit yanely reference range : <=37. The reference range was not used to interpr et this result as brielle l/abnormal. [facility]2017-09-30 01:49:00 Test Item Value Reference Range Interpretation Comments Alk Phos (test code = Alk Phos) 94 39-136 [facility]2017-09-30 01:49:00 Test Item Value Reference Range Interpretation Comments Bili Total (test code = Bili Total) 0.5 0.2-1.3 [facility]2017-09-30 01:49:00 Test Item Value Reference Range Interpretation Comments Bili Direct (test code 0.1 See_Comment [Aut omated message] The = Bili Direct) system which generated this result tra nsmitted reference range : <=0.3. The reference r matthieu was not used to int erpret this result as brielle l/abnormal. [facility]2017-09-30 01:49:00 Test Item Value Reference Range Interpretation Comments Albumin Lvl (test code = Albumin Lvl) 3.6 3.5-5.0 [facility]2017-09-30 01:49:00 Test Item Value Reference Range Interpretation Comments ALT (test code = ALT) 17 See_Comment [Auto mated message] The system which ge nerated this result transmit yanely reference range : <=65. The reference range was not used to interpr et this result as brielle l/abnormal. [facility]2017-09-30 01:49:00 Test Item Value Reference Range Interpretation Comments Total Protein (test code = Total 8.7 6.4-8.4 Protein) [facility]2017-09-30 01:49:00 Test Item Value Reference Range Interpretation Comments A/G Ratio (test code = A/G Ratio) 0.7 0.7-1.6 [facility]2017-09-30 01:49:00 Test Item Value Reference Range Interpretation Comments Bili Indirect (test 0.4 See_Comment [Automa yanely message] The code = Bili Indirect) system which generated this result tra nsmitted reference range : <=1.0. The reference r matthieu was not used to int erpret this result as normal/abnormal . [facility]2017-09-30 01:49:00 Test Item Value Reference Range Interpretation Comments Globulin (test code = Globulin) 5.1 2.7-4.2 [facility]2017-09-30 01:49:00 Test Item Value Reference Range Interpretation Comments Lactic Acid WB (test code = Lactic Acid 1.1 0.5-2.2 WB) [facility]2017-09-30 01:49:00 Test Item Value Reference Range Interpretation Comments eGFR (test code = eGFR) 105 [facility]2017-09-30 01:49:00 Test Item Value Reference Range Interpretation Comments Creatinine Lvl (test code = Creatinine 0.87 0.50-1.40 Lvl) [facility]2017-09-30 01:49:00 Test Item Value Reference Range Interpretation Comments Sodium Lvl (test code = Sodium Lvl) 134 135-145 [facility]2017-09-30 01:49:00 Test Item Value Reference Range Interpretation Comments Chloride Lvl (test code = Chloride Lvl) 100 95-109 [facility]2017-09-30 01:49:00 Test Item Value Reference Range Interpretation Comments Potassium Lvl (test code = Potassium 2.9 3.5-5.1 Lvl) [facility]2017-09-30 01:49:00 Test Item Value Reference Range Interpretation Comments CO2 (test code = CO2) 29 24-32 [facility]2017-09-30 01:49:00 Test Item Value Reference Range Interpretation Comments Calcium Lvl (test code = Calcium Lvl) 8.6 8.5-10.5 [facility]2017-09-30 01:49:00 Test Item Value Reference Range Interpretation Comments AGAP (test code = AGAP) 7.9 10.0-20.0 [facility]2017-09-30 01:49:00 Test Item Value Reference Range Interpretation Comments BUN (test code = BUN) 6 7-22 [facility]2017-09-30 01:49:00 Test Item Value Reference Range Interpretation Comments Glucose Lvl (test code = Glucose Lvl) 107 70-99 [facility]dd[facility]XKLCHWMAQ4008[facility]59-69 01:49:00 Test Item Value Reference Range Interpretation Comments MCH (test code = MCH) 24.2 pg 27.0-31.0 [facility] HospitalHaptqetCLVCSNRCNX2585-84-45 01:49:00 Test Item Value Reference Range Interpretation Comments MCV (test code = MCV) 75.5 80.0-94.0 [facility] HospitalUmexmdkZMJAGBRNKJ3142-48-96 01:49:00 Test Item Value Reference Range Interpretation Comments Hgb (test code = Hgb) 15.3 14.0-18.0 [facility] HospitalDjrtjqoTBYILIHFPR9518-21-62 01:49:00 Test Item Value Reference Range Interpretation Comments Hct (test code = Hct) 47.6 42.0-54.0 [facility] HospitalRjbaeyjAIPSUBHABZ4738-44-65 01:49:00 Test Item Value Reference Range Interpretation Comments WBC (test code = WBC) 12.7 3.7-10.4 [facility] HospitalWntgnszDHMLRWGCNU6976-35-53 01:49:00 Test Item Value Reference Range Interpretation Comments RBC (test code = RBC) 6.31 4.70-6.10 [facility] HospitalZflyltiGHXTIKLKWD3385-96-85 01:49:00 Test Item Value Reference Range Interpretation Comments MPV (test code = MPV) 8.2 7.4-10.4 [facility] HospitalBamkqmpGBSTYJQVNG2859-67-74 01:49:00 Test Item Value Reference Range Interpretation Comments MCHC (test code = MCHC) 32.1 32.0-36.0 [facility] HospitalEjgykpyWBWDWDASQS3166-90-51 01:49:00 Test Item Value Reference Range Interpretation Comments RDW (test code = RDW) 16.4 11.5-14.5 [facility] HospitalYuunprkSQYYRWHTYX7597-21-11 01:49:00 Test Item Value Reference Range Interpretation Comments Platelet (test code = Platelet) 256 133-450 [facility] HospitalQgjwbxfQNYBOSAHXP2158-54-72 01:49:00 Test Item Value Reference Range Interpretation Comments Eosinophils (test code = 0.6 See_Comment [A utomated message] The Eosinophils) system which ge nerated this result tra nsmitted reference range : <=4.0. The reference r matthieu was not used to int erpret this result as normal/abnormal . [facility] HospitalHymofgpSXMSQELDSQ6660-59-15 01:49:00 Test Item Value Reference Range Interpretation Comments Basophils (test code = 0.5 See_Comment [Aut omated message] The Basophils) system which ge nerated this result tra nsmitted reference range : <=1.0. The reference r matthieu was not used to int erpret this result as normal/abnormal . [facility] HospitalBjljzrtFJYOLSRHVD5341-09-54 01:49:00 Test Item Value Reference Range Interpretation Comments Segs-Bands # (test code = Segs-Bands #) 9.3 1.5-8.1 [facility] HospitalLsruyykJCGWENRQTU9222-14-80 01:49:00 Test Item Value Reference Range Interpretation Comments Lymphocytes # (test code = Lymphocytes 1.9 1.0-5.5 #) [facility] HospitalQxaiphfGOZEUAMYAW7377-22-65 01:49:00 Test Item Value Reference Range Interpretation Comments Microcyte (test code = 1+ *ABN*(12/15/16 Microcyte) 8:49 PM) [facility] HospitalKrxqkxrKVBGQYPQOQ2084-65-33 01:49:00 Test Item Value Reference Range Interpretation Comments Monocytes # (test code 1.3 See_Comment [Aut omated message] The = Monocytes #) system which generated this result tra nsmitted reference range : <=0.8. The reference r matthieu was not used to int erpret this result as normal/abnormal . [facility] HospitalMlhythaGGPTJAVYFJ2913-92-04 01:49:00 Test Item Value Reference Range Interpretation Comments Eosinophils # (test code 0.1 See_Comment [A utomated message] The = Eosinophils #) system whic h generated this result tra nsmitted reference range : <=0.5. The reference r matthieu was not used to int erpret this result as normal/abnormal . [facility] HospitalXmkhxkuRWPYTIUTKI3559-15-96 01:49:00 Test Item Value Reference Range Interpretation Comments Basophils # (test code 0.1 See_Comment [Aut omated message] The = Basophils #) system which generated this result tra nsmitted reference range : <=0.2. The reference r matthieu was not used to int erpret this result as normal/abnormal . [facility] HospitalCbjlngfVBCBSREXHD0664-52-78 01:49:00 Test Item Value Reference Range Interpretation Comments Monocytes (test code = Monocytes) 10.4 2.0-12.0 [facility] HospitalBhptcmmQWQXIEPQXB6060-03-05 01:49:00 Test Item Value Reference Range Interpretation Comments Segs (test code = Segs) 73.4 45.0-75.0 [facility] HospitalChxgzqnKVDXMCMXQW6742-47-68 01:49:00 Test Item Value Reference Range Interpretation Comments Lymphocytes (test code = Lymphocytes) 15.1 20.0-40.0 [facility]2017-04-24 09:44:00 Test Item Value Reference Range Interpretation Comments eGFR (test code = eGFR) 128 [facility]2017-04-24 09:44:00 Test Item Value Reference Range Interpretation Comments Alk Phos (test code = Alk Phos) 87 39-136 [facility]2017-04-24 09:44:00 Test Item Value Reference Range Interpretation Comments Glucose Lvl (test code = Glucose Lvl) 55 70-99 [facility]2017-04-24 09:44:00 Test Item Value Reference Range Interpretation Comments AGAP (test code = AGAP) 14.3 10.0-20.0 [facility]2017-04-24 09:44:00 Test Item Value Reference Range Interpretation Comments Bili Total (test code = Bili Total) 0.2 0.2-1.3 [facility]2017-04-24 09:44:00 Test Item Value Reference Range Interpretation Comments B/C Ratio (test code = B/C Ratio) 19 6-25 [facility]2017-04-24 09:44:00 Test Item Value Reference Range Interpretation Comments ALT (test code = ALT) 43 See_Comment [Auto mated message] The system which ge nerated this result transmit yanely reference range : <=65. The reference range was not used to interpr et this result as brielle l/abnormal. [facility]2017-04-24 09:44:00 Test Item Value Reference Range Interpretation Comments AST (test code = AST) 34 See_Comment [Auto mated message] The system which ge nerated this result transmit yanely reference range : <=37. The reference range was not used to interpr et this result as brielle l/abnormal. [facility]2017-04-24 09:44:00 Test Item Value Reference Range Interpretation Comments Albumin Lvl (test code = Albumin Lvl) 3.1 3.5-5.0 [facility]2017-04-24 09:44:00 Test Item Value Reference Range Interpretation Comments Globulin (test code = Globulin) 4.6 2.7-4.2 [facility]2017-04-24 09:44:00 Test Item Value Reference Range Interpretation Comments A/G Ratio (test code = A/G Ratio) 0.7 0.7-1.6 [facility]2017-04-24 09:44:00 Test Item Value Reference Range Interpretation Comments BUN (test code = BUN) 10 7-22 [facility]2017-04-24 09:44:00 Test Item Value Reference Range Interpretation Comments Potassium Lvl (test code = Potassium 4.3 3.5-5.1 Lvl) [facility]2017-04-24 09:44:00 Test Item Value Reference Range Interpretation Comments Sodium Lvl (test code = Sodium Lvl) 136 135-145 [facility]2017-04-24 09:44:00 Test Item Value Reference Range Interpretation Comments Creatinine Lvl (test code = Creatinine 0.54 0.50-1.40 Lvl) [facility]2017-04-24 09:44:00 Test Item Value Reference Range Interpretation Comments Calcium Lvl (test code = Calcium Lvl) 8.9 8.5-10.5 [facility]2017-04-24 09:44:00 Test Item Value Reference Range Interpretation Comments Total Protein (test code = Total 7.7 6.4-8.4 Protein) [place]207-04-24 09:44:00 Test Item Value Reference Range Interpretation Comments CO2 (test code = CO2) 22 24-32 [facility]2017-04-24 09:44:00 Test Item Value Reference Range Interpretation Comments Chloride Lvl (test code = Chloride Lvl) 104 95-109 [facility] HospitalXirvpicDYKOYFIICM8411-77-44 09:44:00 Test Item Value Reference Range Interpretation Comments MPV (test code = MPV) 8.4 7.4-10.4 [facility] HospitalThlrgcuDPEWVVNCQS3366-94-43 09:44:00 Test Item Value Reference Range Interpretation Comments Platelet (test code = Platelet) 310 133-450 [facility] HospitalLqndtziKKRITZMEDM3422-79-09 09:44:00 Test Item Value Reference Range Interpretation Comments RDW (test code = RDW) 16.0 11.5-14.5 [facility] HospitalBbruftyUFQYTUIYTU0974-54-56 09:44:00 Test Item Value Reference Range Interpretation Comments MCHC (test code = MCHC) 33.5 32.0-36.0 [facility] HospitalHfatrqwINDXKYDHBY1356-16-02 09:44:00 Test Item Value Reference Range Interpretation Comments MCH (test code = MCH) 25.0 pg 27.0-31.0 [facility] HospitalFxyxzefDYCRFLZVCS7038-33-58 09:44:00 Test Item Value Reference Range Interpretation Comments WBC (test code = WBC) 9.9 3.7-10.4 [facility] HospitalWusbsdfYUWKHSFBRY4516-39-37 09:44:00 Test Item Value Reference Range Interpretation Comments Hgb (test code = Hgb) 13.6 14.0-18.0 [facility] HospitalVfqxayuTYPVHUKVHO7485-01-97 09:44:00 Test Item Value Reference Range Interpretation Comments RBC (test code = RBC) 5.44 4.70-6.10 [facility] HospitalLsxicwyXHXUNIRLIU8567-97-22 09:44:00 Test Item Value Reference Range Interpretation Comments MCV (test code = MCV) 74.6 80.0-94.0 [facility] HospitalNfpkuysEPQLKYGPZI8490-77-38 09:44:00 Test Item Value Reference Range Interpretation Comments Hct (test code = Hct) 40.6 42.0-54.0 [facility] HospitalNczbtvcFENQGCRTTY5109-86-47 09:44:00 Test Item Value Reference Range Interpretation Comments Eosinophils (test code = 2.0 See_Comment [A utomated message] The Eosinophils) system which ge nerated this result tra nsmitted reference range : <=4.0. The reference r matthieu was not used to int erpret this result as normal/abnormal . [facility] HospitalXzlienePPGTVJGPCI3642-42-25 09:44:00 Test Item Value Reference Range Interpretation Comments Basophils (test code = 0.5 See_Comment [Aut omated message] The Basophils) system which ge nerated this result tra nsmitted reference range : <=1.0. The reference r matthieu was not used to int erpret this result as normal/abnormal . [facility] HospitalMqwjtogXZQFGZGRPI2163-37-65 09:44:00 Test Item Value Reference Range Interpretation Comments Monocytes (test code = Monocytes) 7.9 2.0-12.0 [facility] HospitalCsfhzwwKQWJXTKKEH4713-43-97 09:44:00 Test Item Value Reference Range Interpretation Comments Eosinophils # (test code 0.2 See_Comment [A utomated message] The = Eosinophils #) system [facility] generated this result tra nsmitted reference range : <=0.5. The reference r matthieu was not used to int erpret this result as normal/abnormal . [facility] HospitalGqgmpabIVKPYEPFQJ8897-46-03 09:44:00 Test Item Value Reference Range Interpretation Comments Basophils # (test code 0.0 See_Comment [Aut omated message] The = Basophils #) system which generated this result tra nsmitted reference range : <=0.2. The reference r matthieu was not used to int erpret this result as normal/abnormal . [facility] HospitalXsialssWHHHHXYUWP7175-61-58 09:44:00 Test Item Value Reference Range Interpretation Comments Microcyte (test code = 2+ *ABN*(07/10/16 Microcyte) 4:44 AM) [facility] HospitalCgbwxbgGDKHRAOZFN5172-25-97 09:44:00 Test Item Value Reference Range Interpretation Comments Lymphocytes # (test code = Lymphocytes 2.9 1.0-5.5 #) [facility] HospitalUtwyftdLTTQKXSXWO9712-52-11 09:44:00 Test Item Value Reference Range Interpretation Comments Monocytes # (test code 0.8 See_Comment [Aut omated message] The = Monocytes #) system which generated this result tra nsmitted reference range : <=0.8. The reference r matthieu was not used to int erpret this result as normal/abnormal . [facility] HospitalBgkcesuIMROPIEMFO4893-03-45 09:44:00 Test Item Value Reference Range Interpretation Comments Segs-Bands # (test code = Segs-Bands #) 6.0 1.5-8.1 [facility] HospitalGcqxrcrXUOZSOMJDE9932-09-48 09:44:00 Test Item Value Reference Range Interpretation Comments Segs (test code = Segs) 60.7 45.0-75.0 [facility] HospitalTrtwxidAXUUZVQEMW3760-26-82 09:44:00 Test Item Value Reference Range Interpretation Comments Lymphocytes (test code = Lymphocytes) 28.9 20.0-40.0 [facility] AND [id number] 18:36:00 Test Item Value Reference Range Interpretation Comments UA Glucose (test code Negative (07/04/16 1:36 = UA Glucose) PM) [facility] AND [id number] 18:36:00 Test Item Value Reference Range Interpretation Comments UA pH (test code = UA pH) 6.0 1 5.0-8.0 [facility] AND [id number] 18:36:00 Test Item Value Reference Range Interpretation Comments UA Bili (test code = Negative *NA*(07/04/16 UA Bili) 1:36 PM) [facility] AND [id number] 18:36:00 Test Item Value Reference Range Interpretation Comments UA Blood (test code = Negative (07/04/16 1:36 UA Blood) PM) [facility] AND [id number] 18:36:00 Test Item Value Reference Range Interpretation Comments UA Ketones (test code = Trace *ABN*(07/04/16 UA Ketones) 1:36 PM) [facility] AND [id number] 18:36:00 Test Item Value Reference Range Interpretation Comments UA Protein (test code = Trace *ABN*(07/04/16 UA Protein) 1:36 PM) [facility] AND [id number] 18:36:00 Test Item Value Reference Range Interpretation Comments UA Urobilinogen (test code = UA 0.2 0.1-1.0 Urobilinogen) [facility] AND [id number] 18:36:00 Test Item Value Reference Range Interpretation Comments UA Leuk Est (test Negative (07/04/16 1:36 code = [facility] Leuk Est) PM) [facility] [id number] 18:36:00 Test Item Value Reference Range Interpretation Comments UA Nitrite (test code Negative (07/04/16 1:36 = [facility] Nitrite) PM) [facility] [id number] 18:36:00 Test Item Value Reference Range Interpretation Comments UA Turbidity (test code = Clear (07/04/16 1:36 UA Turbidity) PM) [facility] [id number] 18:36:00 Test Item Value Reference Range Interpretation Comments UA Spec Grav (test code = UA Spec 1.020 1 Grav) [facility] [id number] 18:36:00 Test Item Value Reference Range Interpretation Comments UA Color (test code = Yellow *NA*(07/04/16 UA Color) 1:36 PM) [facility] [id number] 18:36:00 Test Item Value Reference Range Interpretation Comments UA Sperm (test code = UA Occasional /HPF Sperm) [facility] [id number] 18:36:00 Test Item Value Reference Range Interpretation Comments UA Mucus (test code = UA Mucus) Few /LPF [facility] [id number] 18:36:00 Test Item Value Reference Range Interpretation Comments UA Bacteria (test code = UA Occasional /HPF Bacteria) [facility] [id number] 18:36:00 Test Item Value Reference Range Interpretation Comments UA Sq Epi (test code = None Seen (07/04/16 1:36 UA Sq Epi) PM) [facility] HireVueannCHEM [id number] 09:28:00 Test Item Value Reference Range Interpretation Comments LDH (test code = LDH) 184 98-192 [facility] UUYTX1440-52-09 09:28:00 Test Item Value Reference Range Interpretation Comments Vitamin D, 25-OH, Total (test code = 13 30-100 Vitamin D, 25-OH, Total) [facility]ivsxlcCSSPKBGIMABA3827-96-88 09:28:00 Test Item Value Reference Range Interpretation Comments AGAP (test code = AGAP) 11.6 10.0-20.0 [facility]BbnnrwrAKSEKUBOGKCC2717-92-60 09:28:00 Test Item Value Reference Range Interpretation Comments Globulin (test code = Globulin) 4.4 2.7-4.2 [facility]mzrtdhLWRGKAEILCDL0986-21-83 09:28:00 Test Item Value Reference Range Interpretation Comments A/G Ratio (test code = A/G Ratio) 0.7 0.7-1.6 [facility]YydehogAVNKJNLNEMZF9450-90-37 09:28:00 Test Item Value Reference Range Interpretation Comments B/C Ratio (test code = B/C Ratio) 16 6-25 [facility]XwgkfwvNWMJOXOQRRFN4559-49-78 09:28:00 Test Item Value Reference Range Interpretation Comments eGFR (test code = eGFR) 126 [facility]IdgljptKJUUUZWJTGVR5605-54-09 09:28:00 Test Item Value Reference Range Interpretation Comments Sodium Lvl (test code = Sodium Lvl) 136 135-145 [facility]NkiqinjQTAOIMTBUKWP9769-93-18 09:28:00 Test Item Value Reference Range Interpretation Comments BUN (test code = BUN) 9 7-22 [facility]GbbcfpoOTNKOSXXVJFL1554-16-23 09:28:00 Test Item Value Reference Range Interpretation Comments Potassium Lvl (test code = Potassium 3.6 3.5-5.1 Lvl) [facility]RcunnxbRXXQOOMGOXMF5409-66-12 09:28:00 Test Item Value Reference Range Interpretation Comments Creatinine Lvl (test code = Creatinine 0.56 0.50-1.40 Lvl) [facility]DyoipvjFOYEKYBVNYCS1340-44-22 09:28:00 Test Item Value Reference Range Interpretation Comments Glucose Lvl (test code = Glucose Lvl) 113 70-99 [facility] MichiganZsbimruYYLVVAPMMDDE1006-34-82 09:28:00 Test Item Value Reference Range Interpretation Comments Alk Phos (test code = Alk Phos) 96 39-136 [facility]NnpzhjbORJSRXYXCSSX5503-59-55 09:28:00 Test Item Value Reference Range Interpretation Comments Bili Total (test code = Bili Total) 0.3 0.2-1.3 [facility] MichiganLerfjcfMRBCDJZBFZHN8323-94-87 09:28:00 Test Item Value Reference Range Interpretation Comments Chloride Lvl (test code = Chloride Lvl) 99 95-109 [facility] MichiganTscbanjEPNOMQGXKLAM5259-81-43 09:28:00 Test Item Value Reference Range Interpretation Comments AST (test code = AST) 35 See_Comment [Auto mated message] The system which ge nerated this result transmit yanely reference range : <=37. The reference range was not used to interpr et this result as brielle l/abnormal. [facility] MichiganJsurcsnYSAYOLWHHHFK9588-55-58 09:28:00 Test Item Value Reference Range Interpretation Comments ALT (test code = ALT) 45 See_Comment [Auto mated message] The system which ge nerated this result transmit yanely reference range : <=65. The reference range was not used to interpr et this result as brielle l/abnormal. [facility] MichiganIgxwpecTSQCYYSCGFQM8025-91-58 09:28:00 Test Item Value Reference Range Interpretation Comments CO2 (test code = CO2) 29 24-32 [place] [address]-04-17 09:28:00 Test Item Value Reference Range Interpretation Comments Albumin Lvl (test code = Albumin Lvl) 3.1 3.5-5.0 [facility] MichiganAtrhywySRYHLFMQIMTZ7914-83-40 09:28:00 Test Item Value Reference Range Interpretation Comments Calcium Lvl (test code = Calcium Lvl) 8.6 8.5-10.5 [facility] MichiganLrnwnlyQANHGRHAVOAM4778-15-39 09:28:00 Test Item Value Reference Range Interpretation Comments Total Protein (test code = Total 7.5 6.4-8.4 Protein) [facility]jejocxAHTOJOJNMY8658-05-16 09:28:00 Test Item Value Reference Range Interpretation Comments RDW (test code = RDW) 16.2 11.5-14.5 [facility] HospitalKgoyhpxDLJMGXRRZE1561-80-90 09:28:00 Test Item Value Reference Range Interpretation Comments MCV (test code = MCV) 75.0 80.0-94.0 [facility] HospitalAinxbtaZTLRZUILHS1417-44-71 09:28:00 Test Item Value Reference Range Interpretation Comments MCH (test code = MCH) 24.9 pg 27.0-31.0 [facility] HospitalQpjyqvvYJULWBJAXT3748-04-58 09:28:00 Test Item Value Reference Range Interpretation Comments MCHC (test code = MCHC) 33.2 32.0-36.0 [facility] HospitalNdcjjzdRLFTAKPTMX3424-58-84 09:28:00 Test Item Value Reference Range Interpretation Comments Platelet (test code = Platelet) 216 133-450 [facility] HospitalIymgtosSLGREZBQFW1787-85-65 09:28:00 Test Item Value Reference Range Interpretation Comments MPV (test code = MPV) 9.5 7.4-10.4 [facility] HospitalXmoaonxUDSXFKKJSN9072-90-29 09:28:00 Test Item Value Reference Range Interpretation Comments RBC (test code = RBC) 5.17 4.70-6.10 [facility] HospitalWqkliyeADHRRNVJPH0884-12-29 09:28:00 Test Item Value Reference Range Interpretation Comments Hgb (test code = Hgb) 12.9 14.0-18.0 [facility] HospitalSvqshdlDOFFXBHQDQ1466-23-05 09:28:00 Test Item Value Reference Range Interpretation Comments Hct (test code = Hct) 38.8 42.0-54.0 [facility] HospitalAwiundiAXYEQMOIJW6840-73-15 09:28:00 Test Item Value Reference Range Interpretation Comments WBC (test code = WBC) 8.9 3.7-10.4 [facility] HospitalQlnpyntDZWDEKYMIL1449-75-71 09:28:00 Test Item Value Reference Range Interpretation Comments Microcyte (test code = 2+ *ABN*(07/03/16 Microcyte) 4:28 AM) [facility] HospitalXvbwzmeYHAQZZIAQX5294-97-32 09:28:00 Test Item Value Reference Range Interpretation Comments Basophils # (test code 0.1 See_Comment [Aut omated message] The = Basophils #) system which generated this result tra nsmitted reference range : <=0.2. The reference r matthieu was not used to int erpret this result as normal/abnormal . [facility] HospitalIxydrotRIFNAMCMPB9823-53-27 09:28:00 Test Item Value Reference Range Interpretation Comments Eosinophils # (test code 0.5 See_Comment [A utomated message] The = Eosinophils #) system whic h generated this result tra nsmitted reference range : <=0.5. The reference r matthieu was not used to int erpret this result as normal/abnormal . [facility] HospitalFhocziyZGHVOKZFFN7702-82-16 09:28:00 Test Item Value Reference Range Interpretation Comments Basophils (test code = 0.6 See_Comment [Aut omated message] The Basophils) system which ge nerated this result tra nsmitted reference range : <=1.0. The reference r matthieu was not used to int erpret this result as normal/abnormal . [facility] HospitalJowlwpkVKEMGZWJEY7334-30-64 09:28:00 Test Item Value Reference Range Interpretation Comments Lymphocytes # (test code = Lymphocytes 2.1 1.0-5.5 #) [facility] HospitalQryayjaQOVCFANODO4559-09-26 09:28:00 Test Item Value Reference Range Interpretation Comments Segs-Bands # (test code = Segs-Bands #) 5.2 1.5-8.1 [facility] HospitalAdugagdBITFPMKQAD2983-46-35 09:28:00 Test Item Value Reference Range Interpretation Comments Monocytes # (test code 1.0 See_Comment [Aut omated message] The = Monocytes #) system which generated this result tra nsmitted reference range : <=0.8. The reference r matthieu was not used to int erpret this result as normal/abnormal . [facility] HospitalEhineuwWTSEMWLKGE5859-00-18 09:28:00 Test Item Value Reference Range Interpretation Comments Eosinophils (test code = 5.2 See_Comment [A utomated message] The Eosinophils) system which ge nerated this result tra nsmitted reference range : <=4.0. The reference r matthieu was not used to int erpret this result as normal/abnormal . [facility] HospitalKjklwcyRJEXYPVEMU0451-53-27 09:28:00 Test Item Value Reference Range Interpretation Comments Segs (test code = Segs) 59.6 45.0-75.0 [facility] HospitalBpggovyXBMIJPWNLA4705-44-95 09:28:00 Test Item Value Reference Range Interpretation Comments Lymphocytes (test code = Lymphocytes) 23.1 20.0-40.0 [facility] HospitalNdjzobgNZWGVRWTPZ8639-89-58 09:28:00 Test Item Value Reference Range Interpretation Comments Monocytes (test code = Monocytes) 11.5 2.0-12.0 [facility]2017-04-10 10:40:00 Test Item Value Reference Range Interpretation Comments A/G Ratio (test code = A/G Ratio) 0.7 0.7-1.6 [facility]2017-04-10 10:40:00 Test Item Value Reference Range Interpretation Comments AGAP (test code = AGAP) 11.7 10.0-20.0 [facility]2017-04-10 10:40:00 Test Item Value Reference Range Interpretation Comments B/C Ratio (test code = B/C Ratio) 17 6-25 [facility]2017-04-10 10:40:00 Test Item Value Reference Range Interpretation Comments Globulin (test code = Globulin) 4.5 2.7-4.2 [facility]2017-04-10 10:40:00 Test Item Value Reference Range Interpretation Comments eGFR (test code = eGFR) 124 [facility]2017-04-10 10:40:00 Test Item Value Reference Range Interpretation Comments BUN (test code = BUN) 10 7-22 [facility]2017-04-10 10:40:00 Test Item Value Reference Range Interpretation Comments Glucose Lvl (test code = Glucose Lvl) 113 70-99 [facility]2017-04-10 10:40:00 Test Item Value Reference Range Interpretation Comments Bili Total (test code = Bili Total) 0.3 0.2-1.3 [facility]2017-04-10 10:40:00 Test Item Value Reference Range Interpretation Comments Alk Phos (test code = Alk Phos) 95 39-136 [facility]2017-04-10 10:40:00 Test Item Value Reference Range Interpretation Comments Chloride Lvl (test code = Chloride Lvl) 101 95-109 [facility]2017-04-10 10:40:00 Test Item Value Reference Range Interpretation Comments Calcium Lvl (test code = Calcium Lvl) 8.9 8.5-10.5 [facility]2017-04-10 10:40:00 Test Item Value Reference Range Interpretation Comments AST (test code = AST) 40 See_Comment [Auto mated message] The system which ge nerated this result transmit yanely reference range : <=37. The reference range was not used to interpr et this result as brielle l/abnormal. [facility]2017-04-10 10:40:00 Test Item Value Reference Range Interpretation Comments ALT (test code = ALT) 46 See_Comment [Auto mated message] The system which ge nerated this result transmit yanely reference range : <=65. The reference range was not used to interpr et this result as brielle l/abnormal. [facility]2017-04-10 10:40:00 Test Item Value Reference Range Interpretation Comments Albumin Lvl (test code = Albumin Lvl) 3.1 3.5-5.0 [facility]2017-04-10 10:40:00 Test Item Value Reference Range Interpretation Comments Total Protein (test code = Total 7.6 6.4-8.4 Protein) [facility]2017-04-10 10:40:00 Test Item Value Reference Range Interpretation Comments Creatinine Lvl (test code = Creatinine 0.58 0.50-1.40 Lvl) [facility]2017-04-10 10:40:00 Test Item Value Reference Range Interpretation Comments Sodium Lvl (test code = Sodium Lvl) 138 135-145 [facility]2017-04-10 10:40:00 Test Item Value Reference Range Interpretation Comments Potassium Lvl (test code = Potassium 3.7 3.5-5.1 Lvl) [facility]2017-04-10 10:40:00 Test Item Value Reference Range Interpretation Comments CO2 (test code = CO2) 29 24-32 [facility] HospitalHtmkyxdHICLVHGAFE5084-82-79 10:40:00 Test Item Value Reference Range Interpretation Comments Basophils # (test code 0.1 See_Comment [Aut omated message] The = Basophils #) system which generated this result tra nsmitted reference range : <=0.2. The reference r matthieu was not used to int erpret this result as normal/abnormal . [facility] HospitalIxlkwezIBSTBUVPRA7088-04-49 10:40:00 Test Item Value Reference Range Interpretation Comments Microcyte (test code = 2+ *ABN*(06/26/16 Microcyte) 5:40 AM) [facility] HospitalPvhismvDGJTEOCKTF2984-36-71 10:40:00 Test Item Value Reference Range Interpretation Comments Monocytes # (test code 0.7 See_Comment [Aut omated message] The = Monocytes #) system which generated this result tra nsmitted reference range : <=0.8. The reference r matthieu was not used to int erpret this result as normal/abnormal . [facility] HospitalWqzfqmbRQIUHJJCRV2897-31-82 10:40:00 Test Item Value Reference Range Interpretation Comments Eosinophils # (test code 0.3 See_Comment [A utomated message] The = Eosinophils #) system whic h generated this result tra nsmitted reference range : <=0.5. The reference r matthieu was not used to int erpret this result as normal/abnormal . [facility] HospitalWpevkpaRRMPKURTLB2636-34-62 10:40:00 Test Item Value Reference Range Interpretation Comments Segs-Bands # (test code = Segs-Bands #) 4.7 1.5-8.1 [facility] HospitalAcgmnxnEAOPUZCWCE7088-69-45 10:40:00 Test Item Value Reference Range Interpretation Comments Basophils (test code = 0.8 See_Comment [Aut omated message] The Basophils) system which ge nerated this result tra nsmitted reference range : <=1.0. The reference r matthieu was not used to int erpret this result as normal/abnormal . [facility] HospitalUnpsqwlVLYNRZLTIS2817-81-70 10:40:00 Test Item Value Reference Range Interpretation Comments Lymphocytes # (test code = Lymphocytes 2.7 1.0-5.5 #) [facility] HospitalGzvslkmWEMLFKSFKA7003-31-39 10:40:00 Test Item Value Reference Range Interpretation Comments Monocytes (test code = Monocytes) 8.2 2.0-12.0 [facility] HospitalWrjfrhiUBJPKQFGWL9450-13-18 10:40:00 Test Item Value Reference Range Interpretation Comments Eosinophils (test code = 3.2 See_Comment [A utomated message] The Eosinophils) system which ge nerated this result tra nsmitted reference range : <=4.0. The reference r matthieu was not used to int erpret this result as normal/abnormal . [facility] HospitalGkrtmkrPROLQZHVKO5503-41-69 10:40:00 Test Item Value Reference Range Interpretation Comments Lymphocytes (test code = Lymphocytes) 32.2 20.0-40.0 [facility] HospitalIyuvcdkAHGRDDWXLL0231-35-36 10:40:00 Test Item Value Reference Range Interpretation Comments Segs (test code = Segs) 55.6 45.0-75.0 [facility] HospitalKjdmytyVOPKUKPEXP2182-24-23 10:40:00 Test Item Value Reference Range Interpretation Comments Hgb (test code = Hgb) 13.7 14.0-18.0 [facility] HospitalNwdtzyxHAEYNEEQMF5360-89-94 10:40:00 Test Item Value Reference Range Interpretation Comments Platelet (test code = Platelet) 282 133-450 [facility] HospitalQwyajsxSHKTJYQURY4214-79-35 10:40:00 Test Item Value Reference Range Interpretation Comments MPV (test code = MPV) 9.4 7.4-10.4 [facility] HospitalKlmgbevPJTTUPBVGN0480-13-23 10:40:00 Test Item Value Reference Range Interpretation Comments Hct (test code = Hct) 41.6 42.0-54.0 [facility] HospitalXmutfjmKKLCEUTXUX7433-97-92 10:40:00 Test Item Value Reference Range Interpretation Comments MCV (test code = MCV) 74.7 80.0-94.0 [facility] HospitalLnthuaiNNUMTLHWMG9446-40-59 10:40:00 Test Item Value Reference Range Interpretation Comments MCH (test code = MCH) 24.6 pg 27.0-31.0 [facility] HospitalCynsqunMXPFCHESAP6381-91-10 10:40:00 Test Item Value Reference Range Interpretation Comments MCHC (test code = MCHC) 33.0 32.0-36.0 [facility] HospitalEwmyssnBHEZZYZYKT2954-69-83 10:40:00 Test Item Value Reference Range Interpretation Comments RDW (test code = RDW) 16.0 11.5-14.5 [facility] HospitalSwgxrwoUDAAGENHGG7920-41-71 10:40:00 Test Item Value Reference Range Interpretation Comments WBC (test code = WBC) 8.5 3.7-10.4 [facility] HospitalNiasiibSJXMHLZNMN7346-94-61 10:40:00 Test Item Value Reference Range Interpretation Comments RBC (test code = RBC) 5.57 4.70-6.10 [facility]2017-04-08 10:59:00 Test Item Value Reference Range Interpretation Comments Vitamin B12 Lvl (test code = Vitamin 608 384-3119 B12 Lvl) [facility]2017-04-07 10:53:00 Test Item Value Reference Range Interpretation Comments Ferritin Lvl (test code = Ferritin Lvl) 172 22-275 [facility]2017-04-07 10:53:00 Test Item Value Reference Range Interpretation Comments % Satur Fe (test code = % Satur Fe) 17 12-57 [facility]2017-04-07 10:53:00 Test Item Value Reference Range Interpretation Comments UIBC (test code = UIBC) 270 110-370 [facility]2017-04-07 10:53:00 Test Item Value Reference Range Interpretation Comments TIBC (test code = TIBC) 325 228-428 [facility]2017-04-07 10:53:00 Test Item Value Reference Range Interpretation Comments Iron (test code = Iron) 55 45-160 [place] 00817017-04-06 10:32:00 Test Item Value Reference Range Interpretation Comments Testosterone Free (test code = 8.8 6.8-21.5 Testosterone Free) [facility]WhmbjtyGXVHKFXRGSXBI5270-70-85 10:32:00 Test Item Value Reference Range Interpretation Comments Testosterone Tot (test code = 167.5 348.0-1197.0 Testosterone Tot) [facility] [id number] 10:23:00 Test Item Value Reference Range Interpretation Comments Magnesium Lvl (test code = Magnesium 2.2 1.8-2.4 Lvl) [facility] EHBZO1251-70-44 10:23:00 Test Item Value Reference Range Interpretation Comments Phosphorus (test code = Phosphorus) 3.3 2.5-4.5 [facility]ukfkypWPDRLJDHNT5909-59-16 10:23:00 Test Item Value Reference Range Interpretation Comments Prealbumin (test code = Prealbumin) 15.5 18.0-45.0 [facility]NmfrkvuUIQCTV6838-95-08 10:23:00 Test Item Value Reference Range Interpretation Comments CHD Risk (test code = CHD Risk) 6.73 4.00-7.30 [facility]OsghehsWLFHDE2020-25-72 10:23:00 Test Item Value Reference Range Interpretation Comments VLDL (test code = VLDL) 22 [facility] HospitalTxlckmvTAPRXH6732-44-96 10:23:00 Test Item Value Reference Range Interpretation Comments LDL (Calculated) (test code = LDL 167 (Calculated)) [facility]IyynyliGKDSAB2884-64-46 10:23:00 Test Item Value Reference Range Interpretation Comments HDL (test code = HDL) 33 [facility]ds[facility]DNSWB[facility]82-48 10:23:00 Test Item Value Reference Range Interpretation Comments Chol (test code = Chol) 222 [facility] HospitalLclupftDUOQPP6887-00-20 10:23:00 Test Item Value Reference Range Interpretation Comments Trig (test code = Trig) 111 [facility] K[facility]APXGZI6949-98-44 10:23:00 Test Item Value Reference Range Interpretation Comments Hgb A1C (test code = Hgb A1C) 9.2 [facility] HKZJW1397-56-12 02:26:00 Test Item Value Reference Range Interpretation Comments UA Urobilinogen (test code = UA <=1.0 mg/dL 0.1-1.0 Urobilinogen) [facility] AND IFOKM1215-31-79 02:26:00 Test Item Value Reference Range Interpretation Comments UA Sperm (test code = UA Occasional /HPF Sperm) [facility] AND [id number] 02:26:00 Test Item Value Reference Range Interpretation Comments UA Glucose (test code = UA >=1000mg/dL Glucose) [facility] AND [id number] 02:26:00 Test Item Value Reference Range Interpretation Comments UA Ketones (test code = UA Ketones) TR [facility] AND [id number] 02:26:00 Test Item Value Reference Range Interpretation Comments UA Spec Grav (test code = UA Spec Grav) 1.022 [facility] AND SDIQC7533-36-07 02:26:00 Test Item Value Reference Range Interpretation Comments UA Turbidity (test code = Clear (06/20/16 9:26 UA Turbidity) PM) [facility] AND [id number] 02:26:00 Test Item Value Reference Range Interpretation Comments UA pH (test code = UA pH) 6.0 5.0-8.0 [facility] AND [id number] 02:26:00 Test Item Value Reference Range Interpretation Comments UA Protein (test code = UA Protein) 10 mg/dL [facility] AND [id number] 02:26:00 Test Item Value Reference Range Interpretation Comments UA Color (test code = Yellow *NA*(06/20/16 9:26 UA Color) PM) [facility] AND [id number] 02:26:00 Test Item Value Reference Range Interpretation Comments UA Mucus (test code = UA Mucus) Few /LPF [facility] AND [id number] 02:26:00 Test Item Value Reference Range Interpretation Comments UA Nitrite (test code Negative (06/20/16 9:26 = UA Nitrite) PM) [facility] AND [id number] 02:26:00 Test Item Value Reference Range Interpretation Comments UA Sq Epi (test code = UA Sq Epi) None Seen [facility] AND [id number] 02:26:00 Test Item Value Reference Range Interpretation Comments UA Bili (test code = Negative *NA*(06/20/16 UA Bili) 9:26 PM) [facility] AND [id number] 02:26:00 Test Item Value Reference Range Interpretation Comments UA WBC (test code = no gt See_Comment [Automa yanely message] The UA WBC) system which ge nerated this result transmit yanely reference range : <=5. The reference range was not used to interpr et this result as brielle l/abnormal. [facility] AND [id number] 02:26:00 Test Item Value Reference Range Interpretation Comments UA Blood (test code = Negative (06/20/16 9:26 UA Blood) PM) [facility] AND [id number] 02:26:00 Test Item Value Reference Range Interpretation Comments UA Leuk Est (test Negative (06/20/16 9:26 code = UA Leuk Est) PM) [facility]2017-02-07 22:58:00 Test Item Value Reference Range Interpretation Comments eGFR (test code = eGFR) 117 [facility]2017-02-07 22:58:00 Test Item Value Reference Range Interpretation Comments Creatinine Lvl (test code = Creatinine 0.68 0.50-1.40 Lvl) [facility]2017-02-07 22:58:00 Test Item Value Reference Range Interpretation Comments Sodium Lvl (test code = Sodium Lvl) 138 135-145 [facility]2017-02-07 22:58:00 Test Item Value Reference Range Interpretation Comments Alk Phos (test code = Alk Phos) 157 39-136 [facility]2017-02-07 22:58:00 Test Item Value Reference Range Interpretation Comments Bili Total (test code = Bili Total) 0.2 0.2-1.3 [facility]2017-02-07 22:58:00 Test Item Value Reference Range Interpretation Comments Total Protein (test code = Total 8.3 6.4-8.4 Protein) [facility]2017-02-07 22:58:00 Test Item Value Reference Range Interpretation Comments ALT (test code = ALT) 44 See_Comment [Auto mated message] The system which ge nerated this result transmit yanely reference range : <=65. The reference range was not used to interpr et this result as brielle l/abnormal. [facility]2017-02-07 22:58:00 Test Item Value Reference Range Interpretation Comments Albumin Lvl (test code = Albumin Lvl) 3.3 3.5-5.0 [facility]2017-02-07 22:58:00 Test Item Value Reference Range Interpretation Comments AST (test code = AST) 35 See_Comment [Auto mated message] The system which ge nerated this result transmit yanely reference range : <=37. The reference range was not used to interpr et this result as brielle l/abnormal. [facility]2017-02-07 22:58:00 Test Item Value Reference Range Interpretation Comments BUN (test code = BUN) 7 7-22 [facility]2017-02-07 22:58:00 Test Item Value Reference Range Interpretation Comments Calcium Lvl (test code = Calcium Lvl) 8.3 8.5-10.5 [facility]2017-02-07 22:58:00 Test Item Value Reference Range Interpretation Comments Chloride Lvl (test code = Chloride Lvl) 101 95-109 [facility]2017-02-07 22:58:00 Test Item Value Reference Range Interpretation Comments Potassium Lvl (test code = Potassium 3.9 3.5-5.1 Lvl) [facility]2017-02-07 22:58:00 Test Item Value Reference Range Interpretation Comments CO2 (test code = CO2) 28 24-32 [facility]2017-02-07 22:58:00 Test Item Value Reference Range Interpretation Comments Glucose Lvl (test code = Glucose Lvl) 203 70-99 [facility]2017-02-07 22:58:00 Test Item Value Reference Range Interpretation Comments A/G Ratio (test code = A/G Ratio) 0.7 0.7-1.6 [facility]2017-02-07 22:58:00 Test Item Value Reference Range Interpretation Comments AGAP (test code = AGAP) 12.9 10.0-20.0 [facility]2017-02-07 22:58:00 Test Item Value Reference Range Interpretation Comments Globulin (test code = Globulin) 5.0 2.7-4.2 [facility]2017-02-07 22:58:00 Test Item Value Reference Range Interpretation Comments B/C Ratio (test code = B/C Ratio) 10 6-25 [facility]PthhrhiUJFDMTVZXO1758-18-43 22:58:00 Test Item Value Reference Range Interpretation Comments MPV (test code = MPV) 9.0 7.4-10.4 [facility] HospitalYohyavqIFVEFZZTDO2076-67-53 22:58:00 Test Item Value Reference Range Interpretation Comments Platelet (test code = Platelet) 310 133-450 [facility] HospitalAbcfsuqGQJZWLNQVS6218-19-85 22:58:00 Test Item Value Reference Range Interpretation Comments RDW (test code = RDW) 17.5 11.5-14.5 [facility] HospitalFpnclueLDIYORCUGP6718-69-84 22:58:00 Test Item Value Reference Range Interpretation Comments MCHC (test code = MCHC) 32.1 32.0-36.0 [facility] HospitalNyphtlsFTLOGAQEET9723-08-83 22:58:00 Test Item Value Reference Range Interpretation Comments RBC (test code = RBC) 5.62 4.70-6.10 [facility] HospitalWoyyqcvEKAMPQRLCH7960-79-06 22:58:00 Test Item Value Reference Range Interpretation Comments Hgb (test code = Hgb) 13.9 14.0-18.0 [facility] HospitalNdlrrhxXOTCAFHMUI4122-01-38 22:58:00 Test Item Value Reference Range Interpretation Comments WBC (test code = WBC) 10.3 3.7-10.4 [facility] HospitalHvrormgEQFLPOHFPK4031-57-39 22:58:00 Test Item Value Reference Range Interpretation Comments MCV (test code = MCV) 76.9 80.0-94.0 [facility] HospitalGpadsnhCICENPRHMP3292-16-28 22:58:00 Test Item Value Reference Range Interpretation Comments MCH (test code = MCH) 24.7 pg 27.0-31.0 [facility] HospitalZqsyfdjFYKIMJLZHZ7311-93-72 22:58:00 Test Item Value Reference Range Interpretation Comments Hct (test code = Hct) 43.2 42.0-54.0 [facility] HospitalUwqlvwqNFTAPGDVJB1868-71-00 22:58:00 Test Item Value Reference Range Interpretation Comments Microcyte (test code = 1+ *ABN*(04/25/16 4:58 Microcyte) PM) [facility] HospitalKhlnghfWXPKVLVYTY0207-07-17 22:58:00 Test Item Value Reference Range Interpretation Comments Basophils # (test code 0.1 See_Comment [Aut omated message] The = Basophils #) system which generated this result tra nsmitted reference range : <=0.2. The reference r matthieu was not used to int erpret this result as normal/abnormal . [facility] HospitalXpkyhkmVPPBCATEHW9132-62-17 22:58:00 Test Item Value Reference Range Interpretation Comments Eosinophils # (test code 0.3 See_Comment [A utomated message] The = Eosinophils #) system whic h generated this result tra nsmitted reference range : <=0.5. The reference r matthieu was not used to int erpret this result as normal/abnormal . [facility] HospitalSkmjxfgGIWNRWMYGV7112-79-48 22:58:00 Test Item Value Reference Range Interpretation Comments Segs-Bands # (test code = Segs-Bands #) 6.4 1.5-8.1 [facility] HospitalHtbipagFWFMMNHIEM0419-71-63 22:58:00 Test Item Value Reference Range Interpretation Comments Monocytes # (test code 0.9 See_Comment [Aut omated message] The = Monocytes #) system which generated this result tra nsmitted reference range : <=0.8. The reference r matthieu was not used to int erpret this result as normal/abnormal . [facility] HospitalKqbzrqmRMJQLKQXVN1821-40-55 22:58:00 Test Item Value Reference Range Interpretation Comments Lymphocytes # (test code = Lymphocytes 2.6 1.0-5.5 #) [facility]IyglnvbXZBIBXQRPA6439-73-33 22:58:00 Test Item Value Reference Range Interpretation Comments Segs (test code = Segs) 62.7 45.0-75.0 [facility]AgmaucuYUNUMRWWDI3620-35-15 22:58:00 Test Item Value Reference Range Interpretation Comments Basophils (test code = 0.5 See_Comment [Aut omated message] The Basophils) system which ge nerated this result tra nsmitted reference range : <=1.0. The reference r matthieu was not used to int erpret this result as normal/abnormal . [facility] HospitalApbdrkvCDSHOOFAPZ4437-81-80 22:58:00 Test Item Value Reference Range Interpretation Comments Eosinophils (test code = 3.1 See_Comment [A utomated message] The Eosinophils) system which ge nerated this result tra nsmitted reference range : <=4.0. The reference r matthieu was not used to int erpret this result as normal/abnormal . [facility] HospitalFwonajvLTMGKHBUMV9361-01-30 22:58:00 Test Item Value Reference Range Interpretation Comments Lymphocytes (test code = Lymphocytes) 25.2 20.0-40.0 [facility]SAHIDWS[facility]GO8454[facility]53-84 22:58:00 Test Item Value Reference Range Interpretation Comments Monocytes (test code = Monocytes) 8.5 2.0-12.0 [facility]2016-10-13 16:17:00 Test Item Value Reference Range Interpretation Comments eGFR (test code = eGFR) 114 [facility]2016-10-13 16:17:00 Test Item Value Reference Range Interpretation Comments AST (test code = AST) 40 See_Comment [Auto mated message] The system which ge nerated this result transmit yanely reference range : <=37. The reference range was not used to interpr et this result as brielle l/abnormal. [facility]2016-10-13 16:17:00 Test Item Value Reference Range Interpretation Comments ALT (test code = ALT) 47 See_Comment [Auto mated message] The system which ge nerated this result transmit yanely reference range : <=65. The reference range was not used to interpr et this result as brielle l/abnormal. [facility]2016-10-13 16:17:00 Test Item Value Reference Range Interpretation Comments Bili Total (test code = Bili Total) 0.3 0.2-1.3 [facility]2016-10-13 16:17:00 Test Item Value Reference Range Interpretation Comments Alk Phos (test code = Alk Phos) 99 39-136 [facility]2016-10-13 16:17:00 Test Item Value Reference Range Interpretation Comments Albumin Lvl (test code = Albumin Lvl) 3.4 3.5-5.0 [facility]2016-10-13 16:17:00 Test Item Value Reference Range Interpretation Comments Total Protein (test code = Total 8.0 6.4-8.4 Protein) [facility]2016-10-13 16:17:00 Test Item Value Reference Range Interpretation Comments Calcium Lvl (test code = Calcium Lvl) 8.6 8.5-10.5 [facility]2016-10-13 16:17:00 Test Item Value Reference Range Interpretation Comments CO2 (test code = CO2) 26 24-32 [place] 454206-10-13 16:17:00 Test Item Value Reference Range Interpretation Comments Chloride Lvl (test code = Chloride Lvl) 104 95-109 [facility]2016-10-13 16:17:00 Test Item Value Reference Range Interpretation Comments Creatinine Lvl (test code = Creatinine 0.72 0.50-1.40 Lvl) [facility]2016-10-13 16:17:00 Test Item Value Reference Range Interpretation Comments Sodium Lvl (test code = Sodium Lvl) 138 135-145 [facility]2016-10-13 16:17:00 Test Item Value Reference Range Interpretation Comments Potassium Lvl (test code = Potassium 4.0 3.5-5.1 Lvl) [facility]2016-10-13 16:17:00 Test Item Value Reference Range Interpretation Comments Glucose Lvl (test code = Glucose Lvl) 200 70-99 [facility]2016-10-13 16:17:00 Test Item Value Reference Range Interpretation Comments BUN (test code = BUN) 9 7-22 [facility]2016-10-13 16:17:00 Test Item Value Reference Range Interpretation Comments B/C Ratio (test code = B/C Ratio) 12 6-25 [facility]2016-10-13 16:17:00 Test Item Value Reference Range Interpretation Comments AGAP (test code = AGAP) 12.0 10.0-20.0 [facility]2016-10-13 16:17:00 Test Item Value Reference Range Interpretation Comments A/G Ratio (test code = A/G Ratio) 0.7 0.7-1.6 [facility]2016-10-13 16:17:00 Test Item Value Reference Range Interpretation Comments Globulin (test code = Globulin) 4.6 2.7-4.2 [facility]2016-10-13 16:17:00 Test Item Value Reference Range Interpretation Comments Magnesium Lvl (test code = Magnesium 2.1 1.8-2.4 Lvl) [facility] HospitalPqlrawnQIPJZBWINO9612-33-26 16:17:00 Test Item Value Reference Range Interpretation Comments Hct (test code = Hct) 42.5 42.0-54.0 [facility] HospitalMpnhzjoIUOKLTLGDP1050-66-91 16:17:00 Test Item Value Reference Range Interpretation Comments MCV (test code = MCV) 74.6 80.0-94.0 [facility] HospitalErhyoxvFJOVFANJBL0853-16-31 16:17:00 Test Item Value Reference Range Interpretation Comments MCHC (test code = MCHC) 32.2 32.0-36.0 [facility] HospitalYewkcluCSERGHSFOT9801-18-14 16:17:00 Test Item Value Reference Range Interpretation Comments MCH (test code = MCH) 24.0 pg 27.0-31.0 [facility] HospitalBgheiwgDLSUZCZACA2126-46-78 16:17:00 Test Item Value Reference Range Interpretation Comments Platelet (test code = Platelet) 339 133-450 [facility] HospitalAmtfsjiPJRDJCGASG6008-77-96 16:17:00 Test Item Value Reference Range Interpretation Comments MPV (test code = MPV) 9.4 7.4-10.4 [facility] HospitalUbfpyreCNXOCHEAKN4934-10-59 16:17:00 Test Item Value Reference Range Interpretation Comments RDW (test code = RDW) 16.9 11.5-14.5 [facility] HospitalXmxtxvnSTEHPREZSW1432-13-55 16:17:00 Test Item Value Reference Range Interpretation Comments WBC (test code = WBC) 9.5 3.7-10.4 [facility] HospitalGvghounJTBHSDIUEY7524-17-40 16:17:00 Test Item Value Reference Range Interpretation Comments RBC (test code = RBC) 5.69 4.70-6.10 [facility] HospitalJxftjihHNQRZKERZR2857-54-03 16:17:00 Test Item Value Reference Range Interpretation Comments Hgb (test code = Hgb) 13.7 14.0-18.0 [facility] HospitalQxvwznjNANKCSOVLX0935-20-59 16:17:00 Test Item Value Reference Range Interpretation Comments Microcyte (test code = 2+ *ABN*(12/30/15 Microcyte) 11:17 AM) [facility] HospitalQfeazysEINQRWWPTX5471-49-91 16:17:00 Test Item Value Reference Range Interpretation Comments Eosinophils # (test code 0.2 See_Comment [A utomated message] The = Eosinophils #) system whic h generated this result tra nsmitted reference range : <=0.5. The reference r matthieu was not used to int erpret this result as normal/abnormal . [facility] HospitalBkweagzICVRIUSUEX7193-46-76 16:17:00 Test Item Value Reference Range Interpretation Comments Basophils # (test code 0.1 See_Comment [Aut omated message] The = Basophils #) system which generated this result tra nsmitted reference range : <=0.2. The reference r matthieu was not used to int erpret this result as normal/abnormal . [facility] HospitalHzqgvbxEBEGVZWPNU6268-48-83 16:17:00 Test Item Value Reference Range Interpretation Comments Lymphocytes (test code = Lymphocytes) 21.2 20.0-40.0 [facility] HospitalJheooxoVPBGPWZVRU0845-25-97 16:17:00 Test Item Value Reference Range Interpretation Comments Segs (test code = Segs) 70.3 45.0-75.0 [facility] HospitalPnofblpMKDEOKPEJI1376-55-08 16:17:00 Test Item Value Reference Range Interpretation Comments Monocytes (test code = Monocytes) 5.5 2.0-12.0 [facility] HospitalNuwzjjuHEVEANLTKO7530-22-28 16:17:00 Test Item Value Reference Range Interpretation Comments Eosinophils (test code = 2.0 See_Comment [A utomated message] The Eosinophils) system which ge nerated this result tra nsmitted reference range : <=4.0. The reference r matthieu was not used to int erpret this result as normal/abnormal . [facility] HospitalZfopnamDRGWPKDKYQ6622-88-90 16:17:00 Test Item Value Reference Range Interpretation Comments Basophils (test code = 1.0 See_Comment [Aut omated message] The Basophils) system which ge nerated this result tra nsmitted reference range : <=1.0. The reference r matthieu was not used to int erpret this result as normal/abnormal . [facility] HospitalIhubykwCDQWWGRCNP0543-30-22 16:17:00 Test Item Value Reference Range Interpretation Comments Lymphocytes # (test code = Lymphocytes 2.0 1.0-5.5 #) [facility] HospitalMyojdjsWGOXYLQAJB2636-97-02 16:17:00 Test Item Value Reference Range Interpretation Comments Monocytes # (test code 0.5 See_Comment [Aut omated message] The = Monocytes #) system which generated this result tra nsmitted reference range : <=0.8. The reference r matthieu was not used to int erpret this result as normal/abnormal . [facility] HospitalJqobmitPSSGMUKBUF6084-58-81 16:17:00 Test Item Value Reference Range Interpretation Comments Segs-Bands # (test code = Segs-Bands #) 6.7 1.5-8.1 [facility] HospitalJlpobyfUZNFOWNUTA7236-76-39 12:47:00 Test Item Value Reference Range Interpretation Comments MPV (test code = MPV) 9.3 7.4-10.4 [facility] HospitalAepctzwJHGAXOTNWT2085-14-92 12:47:00 Test Item Value Reference Range Interpretation Comments Platelet (test code = Platelet) 290 133-450 [facility] HospitalZhzkccpSVNVVCKRST8022-55-80 12:47:00 Test Item Value Reference Range Interpretation Comments RDW (test code = RDW) 16.9 11.5-14.5 [facility] HospitalQlwldgyFGAPPMHYJI1972 12:47:00 Test Item Value Reference Range Interpretation Comments MCHC (test code = MCHC) 31.8 32.0-36.0 [facility] HospitalYbfthriFVBCGBFNDS8771-02-12 12:47:00 Test Item Value Reference Range Interpretation Comments RBC (test code = RBC) 5.48 4.70-6.10 [facility] HospitalMegoovjQJTBGEZLIB1986-01-43 12:47:00 Test Item Value Reference Range Interpretation Comments MCH (test code = MCH) 23.7 pg 27.0-31.0 [facility] HospitalTjlcbagTMBRLUUGMW2718-48-87 12:47:00 Test Item Value Reference Range Interpretation Comments MCV (test code = MCV) 74.6 80.0-94.0 [facility] HospitalUuwnbeqKTXUAZGBDA8961-93-39 12:47:00 Test Item Value Reference Range Interpretation Comments Hct (test code = Hct) 40.9 42.0-54.0 [facility] HospitalXozjjktOLCGSDNMVH8440-57-06 12:47:00 Test Item Value Reference Range Interpretation Comments Hgb (test code = Hgb) 13.0 14.0-18.0 [facility] HospitalZvvhaesCDEIJTYGNL1415-86-62 12:47:00 Test Item Value Reference Range Interpretation Comments WBC (test code = WBC) 9.0 3.7-10.4 [facility] HospitalMsxbqgzYXTRUBATZW1410-38-11 12:47:00 Test Item Value Reference Range Interpretation Comments Lymphocytes # (test code = Lymphocytes 2.5 1.0-5.5 #) [facility] HospitalYtzdsdyTWRJKLCGUK5991-68-06 12:47:00 Test Item Value Reference Range Interpretation Comments Segs-Bands # (test code = Segs-Bands #) 5.4 1.5-8.1 [facility] HospitalOayzomsGEKLPLQPYJ1634-07-43 12:47:00 Test Item Value Reference Range Interpretation Comments Microcyte (test code = 2+ *ABN*(12/28/15 Microcyte) 7:47 AM) [facility] HospitalBrwenkjGWMEENRLHP0504-49-88 12:47:00 Test Item Value Reference Range Interpretation Comments Basophils # (test code 0.1 See_Comment [Aut omated message] The = Basophils #) system which generated this result tra nsmitted reference range : <=0.2. The reference r matthieu was not used to int erpret this result as normal/abnormal . [facility] HospitalVsvwrliSAHSKLXTLX3526-52-41 12:47:00 Test Item Value Reference Range Interpretation Comments Eosinophils # (test code 0.2 See_Comment [A utomated message] The = Eosinophils #) system whic h generated this result tra nsmitted reference range : <=0.5. The reference r matthieu was not used to int erpret this result as normal/abnormal . [facility] HospitalDaffwrdSVTBUPPHCE3140-74-83 12:47:00 Test Item Value Reference Range Interpretation Comments Monocytes # (test code 0.8 See_Comment [Aut omated message] The = Monocytes #) system which generated this result tra nsmitted reference range : <=0.8. The reference r matthieu was not used to int erpret this result as normal/abnormal . [facility] HospitalOywbfqzSUUVVQEBIN4579-82-32 12:47:00 Test Item Value Reference Range Interpretation Comments Eosinophils (test code = 2.5 See_Comment [A utomated message] The Eosinophils) system which ge nerated this result tra nsmitted reference range : <=4.0. The reference r matthieu was not used to int erpret this result as normal/abnormal . [facility] HospitalMnpgwamWEANOXSGSB1046-56-86 12:47:00 Test Item Value Reference Range Interpretation Comments Basophils (test code = 0.6 See_Comment [Aut omated message] The Basophils) system which ge nerated this result tra nsmitted reference range : <=1.0. The reference r matthieu was not used to int erpret this result as normal/abnormal . [facility] HospitalOnujnodGEHFONYWRY2596-65-76 12:47:00 Test Item Value Reference Range Interpretation Comments Lymphocytes (test code = Lymphocytes) 28.0 20.0-40.0 [facility] HospitalVnmqkhpIVGMIGDWCP1879-08-46 12:47:00 Test Item Value Reference Range Interpretation Comments Monocytes (test code = Monocytes) 9.0 2.0-12.0 [facility] HospitalVlmdylgRTXEOUVWLT5872-75-24 12:47:00 Test Item Value Reference Range Interpretation Comments Segs (test code = Segs) 59.9 45.0-75.0 [facility]2016-10-10 17:37:00 Test Item Value Reference Range Interpretation Comments B/C Ratio (test code = B/C Ratio) 11 6-25 [facility]2016-10-10 17:37:00 Test Item Value Reference Range Interpretation Comments A/G Ratio (test code = A/G Ratio) 0.7 0.7-1.6 [facility]2016-10-10 17:37:00 Test Item Value Reference Range Interpretation Comments Globulin (test code = Globulin) 4.9 2.7-4.2 [facility]2016-10-10 17:37:00 Test Item Value Reference Range Interpretation Comments AGAP (test code = AGAP) 11.0 10.0-20.0 [facility]2016-10-10 17:37:00 Test Item Value Reference Range Interpretation Comments eGFR (test code = eGFR) 112 [facility]2016-10-10 17:37:00 Test Item Value Reference Range Interpretation Comments Alk Phos (test code = Alk Phos) 97 39-136 [facility]2016-10-10 17:37:00 Test Item Value Reference Range Interpretation Comments Bili Total (test code = Bili Total) 0.4 0.2-1.3 [facility]2016-10-10 17:37:00 Test Item Value Reference Range Interpretation Comments Chloride Lvl (test code = Chloride Lvl) 104 95-109 [facility]2016-10-10 17:37:00 Test Item Value Reference Range Interpretation Comments Total Protein (test code = Total 8.4 6.4-8.4 Protein) [facility]2016-10-10 17:37:00 Test Item Value Reference Range Interpretation Comments CO2 (test code = CO2) 28 24-32 [facility]2016-10-10 17:37:00 Test Item Value Reference Range Interpretation Comments Calcium Lvl (test code = Calcium Lvl) 8.9 8.5-10.5 [facility]2016-10-10 17:37:00 Test Item Value Reference Range Interpretation Comments Creatinine Lvl (test code = Creatinine 0.76 0.50-1.40 Lvl) [facility]2016-10-10 17:37:00 Test Item Value Reference Range Interpretation Comments Sodium Lvl (test code = Sodium Lvl) 139 135-145 [facility]2016-10-10 17:37:00 Test Item Value Reference Range Interpretation Comments Glucose Lvl (test code = Glucose Lvl) 168 70-99 [facility]2016-10-10 17:37:00 Test Item Value Reference Range Interpretation Comments BUN (test code = BUN) 8 7-22 [facility]2016-10-10 17:37:00 Test Item Value Reference Range Interpretation Comments Potassium Lvl (test code = Potassium 4.0 3.5-5.1 Lvl) [facility]2016-10-10 17:37:00 Test Item Value Reference Range Interpretation Comments AST (test code = AST) 49 See_Comment [Auto mated message] The system which ge nerated this result transmit yanely reference range : <=37. The reference range was not used to interpr et this result as brielle l/abnormal. [facility]2016-10-10 17:37:00 Test Item Value Reference Range Interpretation Comments ALT (test code = ALT) 49 See_Comment [Auto mated message] The system which ge nerated this result transmit yanely reference range : <=65. The reference range was not used to interpr et this result as brielle l/abnormal. [facility]2016-10-10 17:37:00 Test Item Value Reference Range Interpretation Comments Albumin Lvl (test code = Albumin Lvl) 3.5 3.5-5.0 [facility]2016-10-10 17:37:00 Test Item Value Reference Range Interpretation Comments Magnesium Lvl (test code = Magnesium 2.0 1.8-2.4 Lvl) [facility] HospitalAldprjqMYPDCGBYAH7318-42-30 17:37:00 Test Item Value Reference Range Interpretation Comments WBC (test code = WBC) 11.4 3.7-10.4 [facility] HospitalQmlmhiaVRYWSZYWYG5792-21-54 17:37:00 Test Item Value Reference Range Interpretation Comments MCV (test code = MCV) 74.4 80.0-94.0 [facility] HospitalGzfilngZTTUXWNERG7743-25-96 17:37:00 Test Item Value Reference Range Interpretation Comments RBC (test code = RBC) 5.89 4.70-6.10 [facility] HospitalQcaefaxJBXFZYWWHW2616-57-06 17:37:00 Test Item Value Reference Range Interpretation Comments Hgb (test code = Hgb) 14.3 14.0-18.0 [facility] HospitalIbiqlfrECUCVHUWZC2106-43-72 17:37:00 Test Item Value Reference Range Interpretation Comments Hct (test code = Hct) 43.8 42.0-54.0 [facility] HospitalZzjwzkrUOAQBVOFZI8560-36-89 17:37:00 Test Item Value Reference Range Interpretation Comments RDW (test code = RDW) 16.8 11.5-14.5 [facility] HospitalHsglctnFPZKZAQOIZ7604-65-53 17:37:00 Test Item Value Reference Range Interpretation Comments Platelet (test code = Platelet) 294 133-450 [facility] HospitalDtnqzvbYNRUSWJYJM0525-43-82 17:37:00 Test Item Value Reference Range Interpretation Comments MPV (test code = MPV) 9.2 7.4-10.4 [facility] HospitalLdwvicrXQSXXAWXKY2341-64-57 17:37:00 Test Item Value Reference Range Interpretation Comments MCH (test code = MCH) 24.3 pg 27.0-31.0 [facility] HospitalYtgtxohVNSSIAEKSY0299-39-35 17:37:00 Test Item Value Reference Range Interpretation Comments MCHC (test code = MCHC) 32.7 32.0-36.0 [facility] HospitalTdbzwepPFOJPCSICE5257-16-79 17:37:00 Test Item Value Reference Range Interpretation Comments Microcyte (test code = 2+ *ABN*(12/27/15 Microcyte) 12:37 PM) [facility] HospitalUzmujccFGWIUCDJNH8683-06-72 17:37:00 Test Item Value Reference Range Interpretation Comments Basophils # (test code 0.0 See_Comment [Aut omated message] The = Basophils #) system which generated this result tra nsmitted reference range : <=0.2. The reference r matthieu was not used to int erpret this result as normal/abnormal . [facility] HospitalHwznnmoTBPLUXVOIC1897-42-24 17:37:00 Test Item Value Reference Range Interpretation Comments Eosinophils # (test code 0.3 See_Comment [A utomated message] The = Eosinophils #) system wh h generated this result tra nsmitted reference range : <=0.5. The reference r matthieu was not used to int erpret this result as normal/abnormal . [facility] HospitalNgahramHPMLTVDEJC2070-85-25 17:37:00 Test Item Value Reference Range Interpretation Comments Monocytes # (test code 0.5 See_Comment [Aut omated message] The = Monocytes #) system which generated this result tra nsmitted reference range : <=0.8. The reference r matthieu was not used to int erpret this result as normal/abnormal . [facility] HospitalVcdwjwnNMUWZRVEFJ2350-03-42 17:37:00 Test Item Value Reference Range Interpretation Comments Lymphocytes # (test code = Lymphocytes 2.5 1.0-5.5 #) [facility] HospitalDaxggppMUSHUMZTUM3061-98-71 17:37:00 Test Item Value Reference Range Interpretation Comments Segs-Bands # (test code = Segs-Bands #) 8.1 1.5-8.1 [facility] HospitalVoepppdYGNEHANUBY2993-00-59 17:37:00 Test Item Value Reference Range Interpretation Comments Basophils (test code = 0.0 See_Comment [Aut omated message] The Basophils) system which ge nerated this result tra nsmitted reference range : <=1.0. The reference r matthieu was not used to int erpret this result as normal/abnormal . [facility] HospitalJbyphjbYXSQEQFFBH6944-32-40 17:37:00 Test Item Value Reference Range Interpretation Comments Eosinophils (test code = 2.3 See_Comment [A utomated message] The Eosinophils) system which ge nerated this result tra nsmitted reference range : <=4.0. The reference r matthieu was not used to int erpret this result as normal/abnormal . [facility] HospitalJkvxxbbAXTSQUTZQM0288-22-15 17:37:00 Test Item Value Reference Range Interpretation Comments Lymphocytes (test code = Lymphocytes) 21.5 20.0-40.0 [facility] HospitalWnekhutFZSBZOYXOD9016-42-23 17:37:00 Test Item Value Reference Range Interpretation Comments Monocytes (test code = Monocytes) 4.1 2.0-12.0 [facility] HospitalGzrgjfaHEKKKPAMDU6566-61-17 17:37:00 Test Item Value Reference Range Interpretation Comments Segs (test code = Segs) 72.1 45.0-75.0 [facility]2016-10-06 14:36:00 Test Item Value Reference Range Interpretation Comments eGFR (test code = eGFR) 111 [facility]2016-10-06 14:36:00 Test Item Value Reference Range Interpretation Comments AGAP (test code = AGAP) 13.8 10.0-20.0 [facility]2016-10-06 14:36:00 Test Item Value Reference Range Interpretation Comments A/G Ratio (test code = A/G Ratio) 0.7 0.7-1.6 [facility]2016-10-06 14:36:00 Test Item Value Reference Range Interpretation Comments Chloride Lvl (test code = Chloride Lvl) 104 95-109 [facility]2016-10-06 14:36:00 Test Item Value Reference Range Interpretation Comments Alk Phos (test code = Alk Phos) 98 39-136 [facility]2016-10-06 14:36:00 Test Item Value Reference Range Interpretation Comments AST (test code = AST) 42 See_Comment [Auto mated message] The system which ge nerated this result transmit yanely reference range : <=37. The reference range was not used to interpr et this result as brielle l/abnormal. [facility]2016-10-06 14:36:00 Test Item Value Reference Range Interpretation Comments ALT (test code = ALT) 45 See_Comment [Auto mated message] The system which ge nerated this result transmit yanely reference range : <=65. The reference range was not used to interpr et this result as brielle l/abnormal. [facility]2016-10-06 14:36:00 Test Item Value Reference Range Interpretation Comments Albumin Lvl (test code = Albumin Lvl) 3.5 3.5-5.0 [facility]2016-10-06 14:36:00 Test Item Value Reference Range Interpretation Comments Globulin (test code = Globulin) 4.9 2.7-4.2 [facility]2016-10-06 14:36:00 Test Item Value Reference Range Interpretation Comments B/C Ratio (test code = B/C Ratio) 16 6-25 [facility]2016-10-06 14:36:00 Test Item Value Reference Range Interpretation Comments Bili Total (test code = Bili Total) 0.3 0.2-1.3 [facility]2016-10-06 14:36:00 Test Item Value Reference Range Interpretation Comments Calcium Lvl (test code = Calcium Lvl) 8.7 8.5-10.5 [facility]2016-10-06 14:36:00 Test Item Value Reference Range Interpretation Comments CO2 (test code = CO2) 26 24-32 [place] 454206-10-06 14:36:00 Test Item Value Reference Range Interpretation Comments Total Protein (test code = Total 8.4 6.4-8.4 Protein) [facility]2016-10-06 14:36:00 Test Item Value Reference Range Interpretation Comments Creatinine Lvl (test code = Creatinine 0.77 0.50-1.40 Lvl) [facility]2016-10-06 14:36:00 Test Item Value Reference Range Interpretation Comments Potassium Lvl (test code = Potassium 3.8 3.5-5.1 Lvl) [facility] [facility] 14:[facility]:00 Test Item Value Reference Range Interpretation Comments Sodium Lvl (test code = Sodium Lvl) 140 135-145 [facility]2016-10-06 14:36:00 Test Item Value Reference Range Interpretation Comments BUN (test code = BUN) 12 7-22 [facility]2016-10-06 14:36:00 Test Item Value Reference Range Interpretation Comments Glucose Lvl (test code = Glucose Lvl) 206 70-99 [facility]2016-10-06 14:36:00 Test Item Value Reference Range Interpretation Comments Magnesium Lvl (test code = Magnesium 2.0 1.8-2.4 Lvl) [place] [id number] 14:36:00 Test Item Value Reference Range Interpretation Comments Testosterone Tot (test code = 168.9 348.0-1197.0 Testosterone Tot) [place] [id number] 14:36:00 Test Item Value Reference Range Interpretation Comments Testosterone Free (test code = 9.0 6.8-21.5 Testosterone Free) [facility] AND [id number] 15:59:00 Test Item Value Reference Range Interpretation Comments UA Sq Epi (test code = UA Sq Epi) None Seen [facility] AND [id number] 15:59:00 Test Item Value Reference Range Interpretation Comments UA Urobilinogen (test code = UA <=1.0 mg/dL 0.1-1.0 Urobilinogen) [facility] AND [id number] 15:59:00 Test Item Value Reference Range Interpretation Comments UA WBC (test code = 1 See_Comment [Automa yanely message] The UA WBC) system which ge nerated this result transmit yanely reference range : <=5. The reference range was not used to interpr et this result as brielle l/abnormal. [facility] AND [id number] 15:59:00 Test Item Value Reference Range Interpretation Comments UA Bili (test code = Negative *NA*(12/12/15 UA Bili) 10:59 AM) [facility] AND [id number] 15:59:00 Test Item Value Reference Range Interpretation Comments UA Blood (test code = Negative (12/12/15 10:59 UA Blood) AM) [facility] AND [id number] 15:59:00 Test Item Value Reference Range Interpretation Comments UA Leuk Est (test Negative (12/12/15 10:59 code = UA Leuk Est) AM) [facility] AND [id number] 15:59:00 Test Item Value Reference Range Interpretation Comments UA Nitrite (test code Positive *ABN*(12/12/15 = UA Nitrite) 10:59 AM) [facility] AND [id number] 15:59:00 Test Item Value Reference Range Interpretation Comments UA Color (test code = Brown *ABN*(12/12/15 UA Color) 10:59 AM) [facility] AND [id number] 15:59:00 Test Item Value Reference Range Interpretation Comments UA Turbidity (test code = Clear (12/12/15 10:59 UA Turbidity) AM) [facility] AND [id number] 15:59:00 Test Item Value Reference Range Interpretation Comments UA Bacteria (test code = UA Occasional /HPF Bacteria) [facility] AND [id number] 15:59:00 Test Item Value Reference Range Interpretation Comments UA Amorph Danyelle (test code = Occasional /HPF UA Amorph Danyelle) [facility] AND [id number] 15:59:00 Test Item Value Reference Range Interpretation Comments UA RBC (test code = no gt See_Comment [Automa yanely message] The UA RBC) system which ge nerated this result transmit yanely reference range : <=2. The reference range was not used to interpr et this result as brielle l/abnormal. [facility] AND [id number] 15:59:00 Test Item Value Reference Range Interpretation Comments UA Mucus (test code = UA Mucus) Few /LPF [facility] AND [id number] 15:59:00 Test Item Value Reference Range Interpretation Comments UA Ketones (test code = UA Negative mg/dL Ketones) [facility] AND [id number] 15:59:00 Test Item Value Reference Range Interpretation Comments UA Glucose (test code = UA Negative mg/dL Glucose) [facility] AND [id number] 15:59:00 Test Item Value Reference Range Interpretation Comments UA Spec Grav (test code = UA Spec Grav) 1.013 [facility] AND [id number] 15:59:00 Test Item Value Reference Range Interpretation Comments UA Protein (test code = UA Negative mg/dL Protein) [facility] AND [id number] 15:59:00 Test Item Value Reference Range Interpretation Comments UA pH (test code = UA pH) 6.0 5.0-8.0 [facility] AND [id number] 11:39:00 Test Item Value Reference Range Interpretation Comments UA Sq Epi (test code = UA Sq Epi) None Seen [facility] AND [id number] 11:39:00 Test Item Value Reference Range Interpretation Comments UA Urobilinogen (test code = UA <=1.0 mg/dL 0.1-1.0 Urobilinogen) [facility] AND [id number] 11:39:00 Test Item Value Reference Range Interpretation Comments UA Nitrite (test code Negative (12/11/15 6:39 = UA Nitrite) AM) [facility] AND [id number] 11:39:00 Test Item Value Reference Range Interpretation Comments UA Leuk Est (test Negative (12/11/15 6:39 code = UA Leuk Est) AM) [facility] AND [id number] 11:39:00 Test Item Value Reference Range Interpretation Comments UA Bili (test code = Negative *NA*(12/11/15 UA Bili) 6:39 AM) [facility] AND [id number] 11:39:00 Test Item Value Reference Range Interpretation Comments UA Blood (test code = Negative (12/11/15 6:39 UA Blood) AM) [facility] AND [id number] 11:39:00 Test Item Value Reference Range Interpretation Comments UA pH (test code = UA pH) 5.5 5.0-8.0 [facility] AND [id number] 11:39:00 Test Item Value Reference Range Interpretation Comments UA Protein (test code = UA Protein) 20 mg/dL [facility] AND [id number] 11:39:00 Test Item Value Reference Range Interpretation Comments UA Turbidity (test code Slight *ABN*(12/11/15 = UA Turbidity) 6:39 AM) [facility] AND [id number] 11:39:00 Test Item Value Reference Range Interpretation Comments UA Spec Grav (test code = UA Spec Grav) 1.024 [facility] AND [id number] 11:39:00 Test Item Value Reference Range Interpretation Comments UA Glucose (test code = UA Negative mg/dL Glucose) [facility] AND [id number] 11:39:00 Test Item Value Reference Range Interpretation Comments UA WBC (test code = 8 See_Comment [Automa yanely message] The UA WBC) system which ge nerated this result transmit yanely reference range : <=5. The reference range was not used to interpr et this result as brielle l/abnormal. [facility] AND [id number] 11:39:00 Test Item Value Reference Range Interpretation Comments UA RBC (test code = 3 See_Comment [Automa yanely message] The UA RBC) system which ge nerated this result transmit yanely reference range : <=2. The reference range was not used to interpr et this result as brielle l/abnormal. [facility] AND [id number] 11:39:00 Test Item Value Reference Range Interpretation Comments UA Mucus (test code = UA Mucus) Many /LPF [facility] AND [id number] 11:39:00 Test Item Value Reference Range Interpretation Comments UA Bacteria (test code = UA Occasional /HPF Bacteria) [facility] AND [id number] 11:39:00 Test Item Value Reference Range Interpretation Comments UA Amorph Danyelle (test code = Occasional /HPF UA Amorph Danyelle) [facility] AND [id number] 11:39:00 Test Item Value Reference Range Interpretation Comments UA Color (test code = Brown *ABN*(12/11/15 UA Color) 6:39 AM) [facility] AND [id number] 11:39:00 Test Item Value Reference Range Interpretation Comments UA Ketones (test code = UA Negative mg/dL Ketones) [facility] [employer] [id number] 13:13:00 Test Item Value Reference Range Interpretation Comments ABO/Rh (test code = ABO/Rh) O POS [facility] [employer] [id number] 13:13:00 Test Item Value Reference Range Interpretation Comments Antibody Scrn (test Negative (12/09/15 8:13 code = Antibody Scrn) AM) [facility] AND [id number] 21:51:00 Test Item Value Reference Range Interpretation Comments UA RBC (test code = 8 See_Comment [Automa yanely message] The UA RBC) system which ge nerated this result transmit yanely reference range : <=2. The reference range was not used to interpr et this result as brielle l/abnormal. [facility] AND [id number] 21:51:00 Test Item Value Reference Range Interpretation Comments UA Sq Epi (test code = UA Sq Epi) None Seen [facility] AND [id number] 21:51:00 Test Item Value Reference Range Interpretation Comments UA Mucus (test code = UA Mucus) Few /LPF [facility] AND [id number] 21:51:00 Test Item Value Reference Range Interpretation Comments UA Blood (test code = Negative (12/07/15 4:51 UA Blood) PM) [facility] AND [id number] 21:51:00 Test Item Value Reference Range Interpretation Comments UA Leuk Est (test Negative (12/07/15 4:51 code = UA Leuk Est) PM) [facility] AND [id number] 21:51:00 Test Item Value Reference Range Interpretation Comments UA Nitrite (test code Negative (12/07/15 4:51 = UA Nitrite) PM) [facility] AND [id number] 21:51:00 Test Item Value Reference Range Interpretation Comments UA WBC (test code = no gt See_Comment [Automa yanely message] The UA WBC) system which ge nerated this result transmit yanely reference range : <=5. The reference range was not used to interpr et this result as brielle l/abnormal. [facility] AND [id number] 21:51:00 Test Item Value Reference Range Interpretation Comments UA Turbidity (test code = Clear (12/07/15 4:51 UA Turbidity) PM) [facility] AND [id number] 21:51:00 Test Item Value Reference Range Interpretation Comments UA Color (test code = Yellow *NA*(12/07/15 UA Color) 4:51 PM) [facility] AND [id number] 21:51:00 Test Item Value Reference Range Interpretation Comments UA Ketones (test code = UA Negative mg/dL Ketones) [facility] AND [id number] 21:51:00 Test Item Value Reference Range Interpretation Comments UA Bili (test code = Negative *NA*(12/07/15 UA Bili) 4:51 PM) [facility] AND [id number] 21:51:00 Test Item Value Reference Range Interpretation Comments UA Glucose (test code = UA Negative mg/dL Glucose) [facility] AND [id number] 21:51:00 Test Item Value Reference Range Interpretation Comments UA pH (test code = UA pH) 7.0 5.0-8.0 [facility] AND [id number] 21:51:00 Test Item Value Reference Range Interpretation Comments UA Protein (test code = UA Negative mg/dL Protein) [facility] AND [id number] 21:51:00 Test Item Value Reference Range Interpretation Comments UA Spec Grav (test code = UA Spec Grav) 1.022 [facility] AND [id number] 21:51:00 Test Item Value Reference Range Interpretation Comments UA Urobilinogen (test code = UA <=1.0 mg/dL 0.1-1.0 Urobilinogen) [facility]2016-09-19 09:06:00 Test Item Value Reference Range Interpretation Comments Phosphorus (test code = Phosphorus) 3.3 2.5-4.5 [facility]2016-09-12 09:46:00 Test Item Value Reference Range Interpretation Comments Phosphorus (test code = Phosphorus) 3.7 2.5-4.5 [id number] 09:46:00 Test Item Value Reference Range Interpretation Comments Plt Morph (test code = Normal (11/29/15 4:46 Plt Morph) AM) [facility]2016-09-05 09:24:00 Test Item Value Reference Range Interpretation Comments Phosphorus (test code = Phosphorus) 2.8 2.5-4.[address] [facility] [id number] 09:53:00 Test Item Value Reference Range Interpretation Comments % Satur Fe (test code = % Satur Fe) 16 12-[address] [facility] [id number] 09:53:00 Test Item Value Reference Range Interpretation Comments UIBC (test code = UIBC) 307 110-370 [facility]2016-08-24 09:53:00 Test Item Value Reference Range Interpretation Comments Iron (test code = Iron) 59 45-160 [facility]2016-08-24 09:53:00 Test Item Value Reference Range Interpretation Comments TIBC (test code = TIBC) 366 228-428 [facility]2016-08-24 09:53:00 Test Item Value Reference Range Interpretation Comments Ferritin Lvl (test code = Ferritin Lvl) 224 22-275 [id number] 09:53:00 Test Item Value Reference Range Interpretation Comments Plt Morph (test code = Normal (11/10/15 4:53 Plt Morph) AM) [id number] 09:53:00 Test Item Value Reference Range Interpretation Comments Prealbumin (test code = Prealbumin) 17.8 18.0-45.0 [id number] 09:53:00 Test Item Value Reference Range Interpretation Comments VLDL (test code = VLDL) 45 [facility]XxffhadWLZZEE9866-33-55 09:53:00 Test Item Value Reference Range Interpretation Comments LDL (Calculated) (test code = LDL 181 (Calculated)) [id number] 09:53:00 Test Item Value Reference Range Interpretation Comments Trig (test code = Trig) 224 [facility] HospitalBtndirdNLBLHE5953-75-08 09:53:00 Test Item Value Reference Range Interpretation Comments HDL (test code = HDL) 34 [facility] [id number] 09:53:00 Test Item Value Reference Range Interpretation Comments Chol (test code = Chol) 260 [facility]mtd[facility]qCLXRLZ5937-91-38 09:53:00 Test Item Value Reference Range Interpretation Comments CHD Risk (test code = CHD Risk) 7.65 4.00-7.30 [facility] [id number] 09:53:00 Test Item Value Reference Range Interpretation Comments Hgb A1C (test code = Hgb A1C) 7.5 [facility] [employer] [id number] 12:06:00 Test Item Value Reference Range Interpretation Comments ABO/Rh (test code = ABO/Rh) O POS [employer] [id number] 12:06:00 Test Item Value Reference Range Interpretation Comments Antibody Scrn (test Negative (08/20/15 7:06 code = Antibody Scrn) AM) [facility] [id number] 10:47:00 Test Item Value Reference Range Interpretation Comments AGAP (test code = AGAP) 12.8 10.0-20.0 [facility] [id number] 10:47:00 Test Item Value Reference Range Interpretation Comments CO2 (test code = CO2) 25 24-32 [facility] LdzlchtKDAAZXMUSDEE9043-02-06 10:47:00 Test Item Value Reference Range Interpretation Comments Calcium Lvl (test code = Calcium Lvl) 8.7 8.5-10.5 [facility] [id number] 10:47:00 Test Item Value Reference Range Interpretation Comments Creatinine Lvl (test code = Creatinine 0.66 0.50-1.40 Lvl) [facility] FkzlfhvFZOTNSGMPHBH1883-06-17 10:47:00 Test Item Value Reference Range Interpretation Comments eGFR (test code = eGFR) 119 [facility] BmvtrsbCJAUVPGJEPUM1087-31-68 10:47:00 Test Item Value Reference Range Interpretation Comments Sodium Lvl (test code = Sodium Lvl) 141 135-145 [facility]lpsgawEXAQXQQRXDOI4503-80-69 10:47:00 Test Item Value Reference Range Interpretation Comments Chloride Lvl (test code = Chloride Lvl) 108 95-109 [facility]SwjrcxjDEQLQKTQBVEN7466-43-95 10:47:00 Test Item Value Reference Range Interpretation Comments Potassium Lvl (test code = Potassium 4.8 3.5-5.1 Lvl) [facility]GywdzoqIHCJCONQKKBG5834-65-17 10:47:00 Test Item Value Reference Range Interpretation Comments BUN (test code = BUN) 9 7-22 [facility]CfclhjhEAVARBXLLNGK5950-23-20 10:47:00 Test Item Value Reference Range Interpretation Comments Glucose Lvl (test code = Glucose Lvl) 179 70-99 [facility]WdivhnqDYKFUTQUBR1077-86-00 10:47:00 Test Item Value Reference Range Interpretation Comments Lymphocytes # (test code = Lymphocytes 2.1 1.0-5.5 #) [facility] HospitalOuyaerlHZMDCTAMEV7447-02-60 10:47:00 Test Item Value Reference Range Interpretation Comments Monocytes # (test code 0.8 See_Comment [Aut omated message] The = Monocytes #) system which generated this result tra nsmitted reference range : <=0.8. The reference r matthieu was not used to int erpret this result as normal/abnormal . [facility] HospitalGfylgtfYDMMOLWDTP4669-54-30 10:47:00 Test Item Value Reference Range Interpretation Comments Basophils # (test code 0.1 See_Comment [Aut omated message] The = Basophils #) system which generated this result tra nsmitted reference range : <=0.2. The reference r matthieu was not used to int erpret this result as normal/abnormal . [facility] HospitalDyqqobtCCRPEMWMFM6332-23-77 10:47:00 Test Item Value Reference Range Interpretation Comments Microcyte (test code = 1+ *ABN*(08/02/15 Microcyte) 5:47 AM) [facility] HospitalQbrnlbyDAIXUFWZSI1309-73-10 10:47:00 Test Item Value Reference Range Interpretation Comments Segs-Bands # (test code = Segs-Bands #) 6.2 1.5-8.1 [facility] HospitalZtxkfhgIDLDOFZELG6633-92-55 10:47:00 Test Item Value Reference Range Interpretation Comments Eosinophils (test code = 1.8 See_Comment [A utomated message] The Eosinophils) system which ge nerated this result tra nsmitted reference range : <=4.0. The reference r matthieu was not used to int erpret this result as normal/abnormal . [facility] HospitalElpylbnSTZNOEBAPR9157-60-32 10:47:00 Test Item Value Reference Range Interpretation Comments Basophils (test code = 0.7 See_Comment [Aut omated message] The Basophils) system which ge nerated this result tra nsmitted reference range : <=1.0. The reference r matthieu was not used to int erpret this result as normal/abnormal . [facility] HospitalDybrxkiUGPRCVGXVC7937-99-28 10:47:00 Test Item Value Reference Range Interpretation Comments Eosinophils # (test code 0.2 See_Comment [A utomated message] The = Eosinophils #) system whic h generated this result tra nsmitted reference range : <=0.5. The reference r matthieu was not used to int erpret this result as normal/abnormal . [facility] HospitalPgvaytrCAGGDOVHWJ8294-38-27 10:47:00 Test Item Value Reference Range Interpretation Comments Segs (test code = Segs) 66.3 45.0-75.0 [facility] HospitalRfiazztWSABZCCGXS5335-36-20 10:47:00 Test Item Value Reference Range Interpretation Comments Monocytes (test code = Monocytes) 9.1 2.0-12.0 [facility] HospitalVmtcoidDDMNVZXLYO8887-27-09 10:47:00 Test Item Value Reference Range Interpretation Comments Lymphocytes (test code = Lymphocytes) 22.1 20.0-40.0 [facility] HospitalDlndrhsPKXXMYXMKJ6239-87-13 10:47:00 Test Item Value Reference Range Interpretation Comments MPV (test code = MPV) 8.5 7.4-10.4 [facility] HospitalGkqhaxeKSOFZHQLRU2286-59-23 10:47:00 Test Item Value Reference Range Interpretation Comments Hgb (test code = Hgb) 14.2 14.0-18.0 [facility] HospitalMrdekrtOSGXRDNSTI1158-23-30 10:47:00 Test Item Value Reference Range Interpretation Comments Hct (test code = Hct) 43.5 42.0-54.0 [facility] HospitalCjipepcLVGFCSSUOW0304-22-29 10:47:00 Test Item Value Reference Range Interpretation Comments RBC (test code = RBC) 5.71 4.70-6.10 [facility] HospitalSlnimfrZDCKVAVNCR1213-12-14 10:47:00 Test Item Value Reference Range Interpretation Comments WBC (test code = WBC) 9.3 3.7-10.4 [facility] HospitalEzxjwztWJDQUBGTXH2171-97-44 10:47:00 Test Item Value Reference Range Interpretation Comments Platelet (test code = Platelet) 266 133-450 [facility] HospitalNeeskcvHWHFPBHGNI3893-84-29 10:47:00 Test Item Value Reference Range Interpretation Comments RDW (test code = RDW) 16.3 11.5-14.5 [facility] HospitalMlijcvvVYJRVGMDPT8555-73-72 10:47:00 Test Item Value Reference Range Interpretation Comments MCHC (test code = MCHC) 32.5 32.0-36.0 [facility] HospitalGwimwwrCCNNOQNMCL4811-34-94 10:47:00 Test Item Value Reference Range Interpretation Comments MCV (test code = MCV) 76.3 80.0-94.0 [facility] HospitalZlhlyxsXNGDBROQLY2709-73-62 10:47:00 Test Item Value Reference Range Interpretation Comments MCH (test code = MCH) 24.8 pg 27.0-31.0 [facility] HospitalQvasndsWYMBWKTJKV9634-73-97 10:47:00 Test Item Value Reference Range Interpretation Comments INR (test code = INR) 0.96 0.85-1.17 [facility] HospitalJdexvaeIAPAPNRAPH0749-65-05 10:47:00 Test Item Value Reference Range Interpretation Comments PTT (test code = PTT) 30.5 s 22.9-35.8 [facility] HospitalEsyoxxhPLUCEECMEX1253-81-32 10:47:00 Test Item Value Reference Range Interpretation Comments PT (test code = PT) 13.1 s 12.0-14.7 [facility]GpnphjsTFNZDAIBWJPM1069-69-00 10:10:00 Test Item Value Reference Range Interpretation Comments AGAP (test code = AGAP) 13.4 10.0-20.0 [facility] MichiganFyoajgbYMLDEUOQLNOY2497-21-88 10:10:00 Test Item Value Reference Range Interpretation Comments eGFR (test code = eGFR) 120 [facility] MichiganRavvdndTYTGNOVDLKAT9728-03-54 10:10:00 Test Item Value Reference Range Interpretation Comments Calcium Lvl (test code = Calcium Lvl) 8.9 8.5-10.5 [facility]XndpfpbTJRGOWHQNJBK8572-49-46 10:10:00 Test Item Value Reference Range Interpretation Comments CO2 (test code = CO2) 26 24-32 [facility] MichiganEhykxrlSUDBRWGZTQTH0897-85-87 10:10:00 Test Item Value Reference Range Interpretation Comments Potassium Lvl (test code = Potassium 4.4 3.5-5.1 Lvl) [facility] MichiganBcetvayTMNHEHZDFTWL3971-21-73 10:10:00 Test Item Value Reference Range Interpretation Comments Chloride Lvl (test code = Chloride Lvl) 104 95-109 [facility] MichiganOvymeczLSUHOVFYQMWR7683-37-85 10:10:00 Test Item Value Reference Range Interpretation Comments Creatinine Lvl (test code = Creatinine 0.64 0.50-1.40 Lvl) [facility] MichiganBoiniksSGJCNOHOGABC0489-74-32 10:10:00 Test Item Value Reference Range Interpretation Comments Sodium Lvl (test code = Sodium Lvl) 139 135-145 [facility] MichiganGeeoaicULLQASYKBUWT0538-84-02 10:10:00 Test Item Value Reference Range Interpretation Comments BUN (test code = BUN) 10 7-22 [facility] MichiganEvjpkqjMEXAPICKMSWX5747-38-33 10:10:00 Test Item Value Reference Range Interpretation Comments Glucose Lvl (test code = Glucose Lvl) 95 70-99 [facility] HospitalTpauhpkPXEUCWTKWF5030-95-51 10:10:00 Test Item Value Reference Range Interpretation Comments WBC (test code = WBC) 9.5 3.7-10.4 [facility] HospitalXfhndkcPACETCBDFK7925-61-99 10:10:00 Test Item Value Reference Range Interpretation Comments RBC (test code = RBC) 5.75 4.70-6.10 [facility] HospitalIlouzrhYRYRTVWBCR2997-52-33 10:10:00 Test Item Value Reference Range Interpretation Comments Hgb (test code = Hgb) 13.8 14.0-18.0 [facility] HospitalMjktrtsEPEWEZSYQL3385-05-39 10:10:00 Test Item Value Reference Range Interpretation Comments MCV (test code = MCV) 75.5 80.0-94.0 [facility] HospitalAvnyjswRPPVSNYNDV2329-38-53 10:10:00 Test Item Value Reference Range Interpretation Comments MCH (test code = MCH) 24.0 pg 27.0-31.0 [facility] HospitalQxwcpkeZBMGIXBKUO8320-29-37 10:10:00 Test Item Value Reference Range Interpretation Comments Hct (test code = Hct) 43.4 42.0-54.0 [facility] HospitalBndanicLIPUIIPRRH4302-45-93 10:10:00 Test Item Value Reference Range Interpretation Comments RDW (test code = RDW) 15.1 11.5-14.5 [facility] HospitalFzdaxxlHSRBARZBWD2190-52-38 10:10:00 Test Item Value Reference Range Interpretation Comments MCHC (test code = MCHC) 31.8 32.0-36.0 [facility] HospitalAljyhutZXURGDNJKX3915-56-67 10:10:00 Test Item Value Reference Range Interpretation Comments MPV (test code = MPV) 9.3 7.4-10.4 [facility] HospitalLgnxkiuPOBLYXSZML4563-18-15 10:10:00 Test Item Value Reference Range Interpretation Comments Platelet (test code = Platelet) 235 133-450 [facility]SykhczbBGVHLKMLZF0240-11-93 10:10:00 Test Item Value Reference Range Interpretation Comments Basophils # (test code 0.1 See_Comment [Aut omated message] The = Basophils #) system which generated this result tra nsmitted reference range : <=0.2. The reference r matthieu was not used to int erpret this result as normal/abnormal . [facility] HospitalJekuezbTKXOQJUMMW2951-43-94 10:10:00 Test Item Value Reference Range Interpretation Comments Eosinophils # (test code 0.2 See_Comment [A utomated message] The = Eosinophils #) system whic h generated this result tra nsmitted reference range : <=0.5. The reference r matthieu was not used to int erpret this result as normal/abnormal . [facility] HospitalHcctgggNLUUWERNUZ3019-95-32 10:10:00 Test Item Value Reference Range Interpretation Comments Microcyte (test code = 2+ *ABN*(06/28/15 Microcyte) 5:10 AM) [facility] HospitalZciivakDGOVONAKHR0157-99-16 10:10:00 Test Item Value Reference Range Interpretation Comments Segs (test code = Segs) 59.7 45.0-75.0 [facility] HospitalMzcwjzqUXPGFODUIK5513-58-72 10:10:00 Test Item Value Reference Range Interpretation Comments Lymphocytes (test code = Lymphocytes) 28.2 20.0-40.0 [facility] HospitalEkenmkfSOWUHMTXOJ8423-59-04 10:10:00 Test Item Value Reference Range Interpretation Comments Eosinophils (test code = 2.1 See_Comment [A utomated message] The Eosinophils) system which ge nerated this result tra nsmitted reference range : <=4.0. The reference r matthieu was not used to int erpret this result as normal/abnormal . [facility] HospitalEjltywqKEFYPVJTFB5802-19-05 10:10:00 Test Item Value Reference Range Interpretation Comments Monocytes (test code = Monocytes) 9.4 2.0-12.0 [facility] HospitalVfytsoyLZPPHUOBRL7759-84-26 10:10:00 Test Item Value Reference Range Interpretation Comments Basophils (test code = 0.6 See_Comment [Aut omated message] The Basophils) system which ge nerated this result tra nsmitted reference range : <=1.0. The reference r matthieu was not used to int erpret this result as normal/abnormal . [facility] HospitalReztuszOVYDNSCLAD6592-56-58 10:10:00 Test Item Value Reference Range Interpretation Comments Monocytes # (test code 0.9 See_Comment [Aut omated message] The = Monocytes #) system which generated this result tra nsmitted reference range : <=0.8. The reference r matthieu was not used to int erpret this result as normal/abnormal . [facility] HospitalHajtnceKMDAJEIJAC6320-04-69 10:10:00 Test Item Value Reference Range Interpretation Comments Segs-Bands # (test code = Segs-Bands #) 5.6 1.5-8.1 [facility] HospitalQgnamhwVWWNCUMKGE0100-01-42 10:10:00 Test Item Value Reference Range Interpretation Comments Lymphocytes # (test code = Lymphocytes 2.7 1.0-5.5 #) [facility]OpkktxbSAUYTZDMDGFP4435-65-35 10:04:00 Test Item Value Reference Range Interpretation Comments AGAP (test code = AGAP) 13.5 10.0-20.0 [facility] MichiganDunqnnfNPOGLILSFKNH9513-59-32 10:04:00 Test Item Value Reference Range Interpretation Comments eGFR (test code = eGFR) 116 [facility] MichiganClyzbbmPKDKCRKCLOLN7189-19-84 10:04:00 Test Item Value Reference Range Interpretation Comments Glucose Lvl (test code = Glucose Lvl) 93 70-99 [facility] MichiganWysgvkrDYWJWFBLKOBM6998-04-20 10:04:00 Test Item Value Reference Range Interpretation Comments BUN (test code = BUN) 11 7-22 [facility] MichiganShsnwsrDIKPDUGOVKTZ7966-96-72 10:04:00 Test Item Value Reference Range Interpretation Comments Potassium Lvl (test code = Potassium 4.5 3.5-5.1 Lvl) [facility] MichiganEhkmgziYIIZEYTULRYI8308-42-60 10:04:00 Test Item Value Reference Range Interpretation Comments Chloride Lvl (test code = Chloride Lvl) 107 95-109 [facility] MichiganQiwwbgvVUUNJOJYOOCN4779-51-46 10:04:00 Test Item Value Reference Range Interpretation Comments Creatinine Lvl (test code = Creatinine 0.69 0.50-1.40 Lvl) [facility] MichiganUztsawtBZXHPOFKAWMO6944-59-39 10:04:00 Test Item Value Reference Range Interpretation Comments Sodium Lvl (test code = Sodium Lvl) 141 135-145 [facility] MichiganBqtnwvpZCIPWBSBFJPH7090-82-12 10:04:00 Test Item Value Reference Range Interpretation Comments Calcium Lvl (test code = Calcium Lvl) 8.6 8.5-10.5 [facility] MichiganXxqydzpGQPVVPIQKORZ4345-16-93 10:04:00 Test Item Value Reference Range Interpretation Comments CO2 (test code = CO2) 25 24-32 [facility] HospitalMcyeorkTEOYYLIXNZ3355-90-83 10:04:00 Test Item Value Reference Range Interpretation Comments Microcyte (test code = 1+ *ABN*(06/21/15 5:04 Microcyte) AM) [facility] HospitalBpubsfzAGAXYDFUKO0744-69-09 10:04:00 Test Item Value Reference Range Interpretation Comments Basophils # (test code 0.1 See_Comment [Aut omated message] The = Basophils #) system which generated this result tra nsmitted reference range : <=0.2. The reference r matthieu was not used to int erpret this result as normal/abnormal . [facility] HospitalIjyvzglESKIHNNZVT9550-34-49 10:04:00 Test Item Value Reference Range Interpretation Comments Eosinophils # (test code 0.2 See_Comment [A utomated message] The = Eosinophils #) system whic h generated this result tra nsmitted reference range : <=0.5. The reference r matthieu was not used to int erpret this result as normal/abnormal . [facility] HospitalTozdwzwYPRVVPSJVC8360-57-41 10:04:00 Test Item Value Reference Range Interpretation Comments Monocytes # (test code 0.7 See_Comment [Aut omated message] The = Monocytes #) system which generated this result tra nsmitted reference range : <=0.8. The reference r matthieu was not used to int erpret this result as normal/abnormal . [facility] HospitalIwmfibxZUAFNOFCQZ7857-09-30 10:04:00 Test Item Value Reference Range Interpretation Comments Segs-Bands # (test code = Segs-Bands #) 5.0 1.5-8.1 [facility] HospitalUpvmsmtHQIRNHVTQE1211-38-22 10:04:00 Test Item Value Reference Range Interpretation Comments Basophils (test code = 0.6 See_Comment [Aut omated message] The Basophils) system which ge nerated this result tra nsmitted reference range : <=1.0. The reference r matthieu was not used to int erpret this result as normal/abnormal . [facility] HospitalXnwzlbxAMUGNURWCO8142-44-39 10:04:00 Test Item Value Reference Range Interpretation Comments Eosinophils (test code = 2.1 See_Comment [A utomated message] The Eosinophils) system which ge nerated this result tra nsmitted reference range : <=4.0. The reference r matthieu was not used to int erpret this result as normal/abnormal . [facility] HospitalGsfhevxOZQPNUIUQD6276-10-41 10:04:00 Test Item Value Reference Range Interpretation Comments Monocytes (test code = Monocytes) 8.6 2.0-12.0 [facility] HospitalRfooilbQAGSTBFUJI5671-23-28 10:04:00 Test Item Value Reference Range Interpretation Comments Lymphocytes (test code = Lymphocytes) 30.3 20.0-40.0 [facility] HospitalCvzajxbBMPOMENHDC5271-76-37 10:04:00 Test Item Value Reference Range Interpretation Comments Segs (test code = Segs) 58.4 45.0-75.0 [facility] HospitalFrkkcqeDKDAIOGEFR9268-47-40 10:04:00 Test Item Value Reference Range Interpretation Comments Plt Morph (test code = Normal (06/21/15 5:04 AM) Plt Morph) [facility] HospitalZlenhzjZRRWLNZVIJ4564-17-86 10:04:00 Test Item Value Reference Range Interpretation Comments Lymphocytes # (test code = Lymphocytes 2.6 1.0-5.5 #) [facility] HospitalWvpsuzjWBGFRPUDSQ2026-83-71 10:04:00 Test Item Value Reference Range Interpretation Comments MPV (test code = MPV) 9.5 7.4-10.4 [facility] HospitalRdalfasYYWDYAFYVR0859-85-52 10:04:00 Test Item Value Reference Range Interpretation Comments Platelet (test code = Platelet) 273 133-450 [facility] HospitalOuabjtpWRJANALALF4161-85-43 10:04:00 Test Item Value Reference Range Interpretation Comments MCH (test code = MCH) 23.5 pg 27.0-31.0 [facility] HospitalGamroxfVICFMWTZQX2879-76-42 10:04:00 Test Item Value Reference Range Interpretation Comments MCV (test code = MCV) 76.7 80.0-94.0 [facility] HospitalObsqulsBYGYRVTTID2336-39-36 10:04:00 Test Item Value Reference Range Interpretation Comments RDW (test code = RDW) 15.2 11.5-14.5 [facility] HospitalTvhycpwLKDLQKYASL6676-14-18 10:04:00 Test Item Value Reference Range Interpretation Comments MCHC (test code = MCHC) 30.7 32.0-36.0 [facility] HospitalBnghwgeTBXPGYTFRY7030-67-70 10:04:00 Test Item Value Reference Range Interpretation Comments Hct (test code = Hct) 43.5 42.0-54.0 [facility] HospitalVmsyegrHYYNRLBIOD3054-65-87 10:04:00 Test Item Value Reference Range Interpretation Comments Hgb (test code = Hgb) 13.3 14.0-18.0 [facility] HospitalYioiycrXDTPPQKJNO7694-35-66 10:04:00 Test Item Value Reference Range Interpretation Comments RBC (test code = RBC) 5.67 4.70-6.10 [facility] HospitalCdxvbofQVNEVTYZOR7782-73-12 10:04:00 Test Item Value Reference Range Interpretation Comments WBC (test code = WBC) 8.6 3.7-10.4 [facility]MmnhhkcXRGCPMKOBCRD8418-69-04 09:06:00 Test Item Value Reference Range Interpretation Comments AGAP (test code = AGAP) 12.1 10.0-20.0 [facility] MichiganLooxetuTHVEFCZMRMAU3845-75-66 09:06:00 Test Item Value Reference Range Interpretation Comments eGFR (test code = eGFR) 121 [facility] MichiganLivvnsiTPLRQLIXJBZU6372-98-00 09:06:00 Test Item Value Reference Range Interpretation Comments Creatinine Lvl (test code = Creatinine 0.64 0.50-1.40 Lvl) [facility] MichiganMkpjoztHWRZFPDMXGMA9991-22-25 09:06:00 Test Item Value Reference Range Interpretation Comments BUN (test code = BUN) 12 7-22 [facility] MichiganSnvlfwiCUWRBSGPFGBK4463-35-19 09:06:00 Test Item Value Reference Range Interpretation Comments Glucose Lvl (test code = Glucose Lvl) 91 70-99 [facility] MichiganErrxfdwKMFSXEDWOBLM8313-62-74 09:06:00 Test Item Value Reference Range Interpretation Comments Chloride Lvl (test code = Chloride Lvl) 107 95-109 [facility] MichiganXrtvwqsDKHLWANLPYPD8966-48-53 09:06:00 Test Item Value Reference Range Interpretation Comments Potassium Lvl (test code = Potassium 4.1 3.5-5.1 Lvl) [facility] MichiganMjbapfsMEMXFHZZPGSH8611-11-29 09:06:00 Test Item Value Reference Range Interpretation Comments CO2 (test code = CO2) 25 24-32 [facility] MichiganOhfppyxVKVUTDBXNNBD3296-55-56 09:06:00 Test Item Value Reference Range Interpretation Comments Sodium Lvl (test code = Sodium Lvl) 140 135-145 [facility] MichiganFzmzncvABQUNQUYAJTL1207-82-94 09:06:00 Test Item Value Reference Range Interpretation Comments Calcium Lvl (test code = Calcium Lvl) 8.4 8.5-10.5 [facility] HospitalEjlsszlPZKCPSOWFK5970-81-53 09:06:00 Test Item Value Reference Range Interpretation Comments MCV (test code = MCV) 75.6 80.0-94.0 [facility] HospitalWwblkdfWXETAANQKJ4996-17-73 09:06:00 Test Item Value Reference Range Interpretation Comments Hct (test code = Hct) 42.8 42.0-54.0 [facility] HospitalVeamwfnQCNYMQWMJZ6679-61-30 09:06:00 Test Item Value Reference Range Interpretation Comments MPV (test code = MPV) 9.0 7.4-10.4 [facility] HospitalYpdgwryFZITVMPBRQ7618-32-47 09:06:00 Test Item Value Reference Range Interpretation Comments Platelet (test code = Platelet) 326 133-450 [facility] HospitalJegykkyPKVNRGXTMO7723-02-68 09:06:00 Test Item Value Reference Range Interpretation Comments WBC (test code = WBC) 9.4 3.7-10.4 [facility] HospitalYxemkmlBXPSZAPBFZ4561-87-23 09:06:00 Test Item Value Reference Range Interpretation Comments RBC (test code = RBC) 5.66 4.70-6.10 [facility] HospitalOydwemtYHHGNAMQII4768-90-26 09:06:00 Test Item Value Reference Range Interpretation Comments MCH (test code = MCH) 24.0 pg 27.0-31.0 [facility] HospitalZctuwfeYLKSQMIZYE4814-90-35 09:06:00 Test Item Value Reference Range Interpretation Comments Hgb (test code = Hgb) 13.6 14.0-18.0 [facility] HospitalPysijiaIQFJMEWUBJ8839-92-22 09:06:00 Test Item Value Reference Range Interpretation Comments RDW (test code = RDW) 14.8 11.5-14.5 [facility] HospitalHuuyszbEDGDAKEXJI0415-81-34 09:06:00 Test Item Value Reference Range Interpretation Comments MCHC (test code = MCHC) 31.8 32.0-36.0 [facility] HospitalNmvfxjcHYWOPMSRQW4952-70-44 09:06:00 Test Item Value Reference Range Interpretation Comments Eosinophils # (test code 0.2 See_Comment [A utomated message] The = Eosinophils #) system whic h generated this result tra nsmitted reference range : <=0.5. The reference r matthieu was not used to int erpret this result as normal/abnormal . [facility] HospitalZvgczktPDLPLAQEXO3531-86-78 09:06:00 Test Item Value Reference Range Interpretation Comments Basophils # (test code 0.0 See_Comment [Aut omated message] The = Basophils #) system which generated this result tra nsmitted reference range : <=0.2. The reference r matthieu was not used to int erpret this result as normal/abnormal . [facility] HospitalMgqfryfKEUVQSYEXR6165-59-53 09:06:00 Test Item Value Reference Range Interpretation Comments Microcyte (test code = 2+ *ABN*(06/15/15 Microcyte) 4:06 AM) [facility] HospitalHyvxoklZMPAPSFUWJ2612-46-63 09:06:00 Test Item Value Reference Range Interpretation Comments Eosinophils (test code = 2.0 See_Comment [A utomated message] The Eosinophils) system which ge nerated this result tra nsmitted reference range : <=4.0. The reference r matthieu was not used to int erpret this result as normal/abnormal . [facility] HospitalGofjbelCHLHEZHFXO8061-69-27 09:06:00 Test Item Value Reference Range Interpretation Comments Basophils (test code = 0.4 See_Comment [Aut omated message] The Basophils) system which ge nerated this result tra nsmitted reference range : <=1.0. The reference r matthieu was not used to int erpret this result as normal/abnormal . [facility] HospitalAuuoauuFENGABQUCB1099-15-86 09:06:00 Test Item Value Reference Range Interpretation Comments Segs-Bands # (test code = Segs-Bands #) 5.8 1.5-8.1 [facility] HospitalFaqhoqtSACDZWDZVA2945-58-44 09:06:00 Test Item Value Reference Range Interpretation Comments Monocytes (test code = Monocytes) 9.6 2.0-12.0 [facility] HospitalGqyyegwCAQHJAPNAA4915-18-78 09:06:00 Test Item Value Reference Range Interpretation Comments Lymphocytes (test code = Lymphocytes) 26.3 20.0-40.0 [facility] HospitalNiedwbdORCGHSMIHE8890-50-91 09:06:00 Test Item Value Reference Range Interpretation Comments Segs (test code = Segs) 61.7 45.0-75.0 [facility] HospitalSumwpmjMEUFPRVQUG1468-66-34 09:06:00 Test Item Value Reference Range Interpretation Comments Monocytes # (test code 0.9 See_Comment [Aut omated message] The = Monocytes #) system which generated this result tra nsmitted reference range : <=0.8. The reference r matthieu was not used to int erpret this result as normal/abnormal . [facility] HospitalMakbawjRZTFCFVEQV6056-64-37 09:06:00 Test Item Value Reference Range Interpretation Comments Lymphocytes # (test code = Lymphocytes 2.5 1.0-5.5 #) [facility] HospitalDpmqmkdBQYOPAHWTN8329-81-37 17:04:00 Test Item Value Reference Range Interpretation Comments Plt Morph (test code = Normal (06/14/15 12:04 Plt Morph) PM) [facility] [id number] 10:18:00 Test Item Value Reference Range Interpretation Comments Phosphorus (test code = Phosphorus) 2.7 2.5-4.5 [facility] [id number] 10:18:00 Test Item Value Reference Range Interpretation Comments Alk Phos (test code = Alk Phos) 104 39-136 [facility] EDEHE6938-52-21 10:18:00 Test Item Value Reference Range Interpretation Comments ALT (test code = ALT) 54 See_Comment [Auto mated message] The system which ge nerated this result transmit yanely reference range : <=65. The reference range was not used to interpr et this result as brielle l/abnormal. [facility]2016-03-24 10:18:00 Test Item Value Reference Range Interpretation Comments AST (test code = AST) 33 See_Comment [Auto mated message] The system which ge nerated this result transmit yanely reference range : <=37. The reference range was not used to interpr et this result as brilele l/abnormal. [facility]2016-03-24 10:18:00 Test Item Value Reference Range Interpretation Comments Bili Total (test code = Bili Total) 0.2 0.2-1.3 [facility]2016-03-24 10:18:00 Test Item Value Reference Range Interpretation Comments Albumin Lvl (test code = Albumin Lvl) 3.4 3.5-5.0 [facility]2016-03-24 10:18:00 Test Item Value Reference Range Interpretation Comments Total Protein (test code = Total 7.6 6.4-8.4 Protein) [facility]2016-03-24 10:18:00 Test Item Value Reference Range Interpretation Comments A/G Ratio (test code = A/G Ratio) 0.8 0.7-1.6 [facility]2016-03-24 10:18:00 Test Item Value Reference Range Interpretation Comments B/C Ratio (test code = B/C Ratio) 18 6-25 [facility]2016-03-24 10:18:00 Test Item Value Reference Range Interpretation Comments Globulin (test code = Globulin) 4.2 2.0-4.0 [facility]2016-03-24 10:18:00 Test Item Value Reference Range Interpretation Comments Magnesium Lvl (test code = Magnesium 2.0 1.8-2.4 Lvl) [facility] HospitalYcmkradQJFECBKZSJ6902-79-64 10:18:00 Test Item Value Reference Range Interpretation Comments PTT (test code = PTT) 32.7 s 22.9-35.8 [facility] HospitalJimvkcxUSSUGPFOHC0441-11-46 10:18:00 Test Item Value Reference Range Interpretation Comments PT (test code = PT) 12.7 s 12.0-14.7 [facility] HospitalFzmturaYWOBYCZOYA9205-06-77 10:18:00 Test Item Value Reference Range Interpretation Comments INR (test code = INR) 0.92 0.85-1.17 [facility] HospitalYnppupeLWKOFIJPRH6408-65-16 10:18:00 Test Item Value Reference Range Interpretation Comments Prealbumin (test code = Prealbumin) 15.0 18.0-45.0 [facility] AND [id number] 10:18:00 Test Item Value Reference Range Interpretation Comments UA Leuk Est (test Negative (06/10/15 5:18 code = UA Leuk Est) AM) [facility] AND [id number] 10:18:00 Test Item Value Reference Range Interpretation Comments UA Nitrite (test code Negative (06/10/15 5:18 = UA Nitrite) AM) [facility] AND [id number] 10:18:00 Test Item Value Reference Range Interpretation Comments UA Blood (test code = Negative (06/10/15 5:18 UA Blood) AM) [facility] AND [id number] 10:18:00 Test Item Value Reference Range Interpretation Comments UA Urobilinogen (test code = UA 0.2 0.1-1.0 Urobilinogen) [facility] AND [id number] 10:18:00 Test Item Value Reference Range Interpretation Comments UA Bili (test code = Negative *NA*(06/10/15 UA Bili) 5:18 AM) [facility] AND [id number] 10:18:00 Test Item Value Reference Range Interpretation Comments UA Ketones (test code Negative *NA*(06/10/15 = UA Ketones) 5:18 AM) [facility] AND [id number] 10:18:00 Test Item Value Reference Range Interpretation Comments UA Protein (test code Negative (06/10/15 5:18 = UA Protein) AM) [facility] AND [id number] 10:18:00 Test Item Value Reference Range Interpretation Comments UA pH (test code = UA pH) 5.5 1 5.0-8.0 [facility] AND [id number] 10:18:00 Test Item Value Reference Range Interpretation Comments UA Glucose (test code Negative (06/10/15 5:18 = UA Glucose) AM) [facility] AND [id number] 10:18:00 Test Item Value Reference Range Interpretation Comments UA Spec Grav (test code = UA Spec 1.025 1 Grav) [facility] AND [id number] 10:18:00 Test Item Value Reference Range Interpretation Comments UA Turbidity (test code Cloudy *ABN*(06/10/15 = UA Turbidity) 5:18 AM) [facility] AND [id number] 10:18:00 Test Item Value Reference Range Interpretation Comments UA Color (test code = Yellow *NA*(06/10/15 UA Color) 5:18 AM) [facility] AND [id number] 10:18:00 Test Item Value Reference Range Interpretation Comments UA Bacteria (test code = UA Occasional /HPF Bacteria) [facility] AND [id number] 10:18:00 Test Item Value Reference Range Interpretation Comments UA Amorph Danyelle (test code = UA Many /HPF Amorph Danyelle) [facility] AND [id number] 10:18:00 Test Item Value Reference Range Interpretation Comments UA Sq Epi (test code = None Seen (06/10/15 5:18 UA Sq Epi) AM) [facility] HospitalDpvfohpLARQJGBKPR9795-34-82 14:45:00 Test Item Value Reference Range Interpretation Comments PTT (test code = PTT) 30.4 s 22.9-35.8 [facility] HospitalSbghtcrIDQSJIPJWU3344-29-66 14:45:00 Test Item Value Reference Range Interpretation Comments INR (test code = INR) 1.03 0.85-1.17 [facility] HospitalAsgjjwvYBKWLCNOGL1272-85-02 14:45:00 Test Item Value Reference Range Interpretation Comments PT (test code = PT) 13.8 s 12.0-14.7 [facility] [employer] [id number] 13:50:00 Test Item Value Reference Range Interpretation Comments Antibody Scrn (test Negative (04/27/15 7:50 code = Antibody Scrn) AM) [facility] [employer] [id number] 13:50:00 Test Item Value Reference Range Interpretation Comments ABO/Rh (test code = ABO/Rh) O POS [facility] [employer] [id number] 13:50:00 Test Item Value Reference Range Interpretation Comments eGFR (test code = eGFR) 111 [facility] [employer] [id number] 13:50:00 Test Item Value Reference Range Interpretation Comments Calcium Lvl (test code = Calcium Lvl) 9.3 8.5-10.5 [facility]2016-02-09 13:50:00 Test Item Value Reference Range Interpretation Comments Chloride Lvl (test code = Chloride Lvl) 107 95-109 [place] 454206-02-09 13:50:00 Test Item Value Reference Range Interpretation Comments Potassium Lvl (test code = Potassium 4.5 3.5-5.1 Lvl) [facility]2016-02-09 13:50:00 Test Item Value Reference Range Interpretation Comments Sodium Lvl (test code = Sodium Lvl) 140 135-145 [place] 454206-02-09 13:50:00 Test Item Value Reference Range Interpretation Comments CO2 (test code = CO2) 27 24-32 [place] 454206-02-09 13:50:00 Test Item Value Reference Range Interpretation Comments Glucose Lvl (test code = Glucose Lvl) 105 70-99 [place] 454206-02-09 13:50:00 Test Item Value Reference Range Interpretation Comments BUN (test code = BUN) 10 7-22 [place] 454206-02-09 13:50:00 Test Item Value Reference Range Interpretation Comments Creatinine Lvl (test code = Creatinine 0.78 0.50-1.40 Lvl) [facility]2016-02-09 13:50:00 Test Item Value Reference Range Interpretation Comments AGAP (test code = AGAP) 10.5 10.0-20.0 [facility] HospitalCikziqkOXXGKGMSZQ5307-96-98 13:50:00 Test Item Value Reference Range Interpretation Comments Monocytes # (test code 0.4 See_Comment [Aut omated message] The = Monocytes #) system which generated this result tra nsmitted reference range : <=0.8. The reference r matthieu was not used to int erpret this result as normal/abnormal . [facility] HospitalSoslrxmPKPXRGZOFU4014-44-41 13:50:00 Test Item Value Reference Range Interpretation Comments Basophils # (test code 0.0 See_Comment [Aut omated message] The = Basophils #) system which generated this result tra nsmitted reference range : <=0.2. The reference r matthieu was not used to int erpret this result as normal/abnormal . [facility] HospitalFlejheeWNPEGDCJFF4600-20-62 13:50:00 Test Item Value Reference Range Interpretation Comments Eosinophils # (test code 0.2 See_Comment [A utomated message] The = Eosinophils #) system whic h generated this result tra nsmitted reference range : <=0.5. The reference r matthieu was not used to int erpret this result as normal/abnormal . [facility] HospitalRbzjuryMMWINAHAKZ1889-84-30 13:50:00 Test Item Value Reference Range Interpretation Comments Lymphocytes # (test code = Lymphocytes 2.1 1.0-5.5 #) [facility] HospitalWdbmkhrTLMWWLFFBF7247-21-56 13:50:00 Test Item Value Reference Range Interpretation Comments Microcyte (test code = 1+ *ABN*(04/27/15 7:50 Microcyte) AM) [facility] HospitalMvmrdneROCIHLHHXX4385-43-84 13:50:00 Test Item Value Reference Range Interpretation Comments Segs (test code = Segs) 65.2 45.0-75.0 [facility] HospitalJyansjpJYRDNVKARG8685-54-48 13:50:00 Test Item Value Reference Range Interpretation Comments Monocytes (test code = Monocytes) 5.3 2.0-12.0 [facility] HospitalGgoygrsDDYQIOXWAH8049-81-19 13:50:00 Test Item Value Reference Range Interpretation Comments Basophils (test code = 0.4 See_Comment [Aut omated message] The Basophils) system which ge nerated this result tra nsmitted reference range : <=1.0. The reference r matthieu was not used to int erpret this result as normal/abnormal . [facility] HospitalEwsvqmnQHWUGHVHCI2411-35-56 13:50:00 Test Item Value Reference Range Interpretation Comments Lymphocytes (test code = Lymphocytes) 26.8 20.0-40.0 [facility] HospitalXryactoLMGMYHUTEY4559-45-38 13:50:00 Test Item Value Reference Range Interpretation Comments Segs-Bands # (test code = Segs-Bands #) 5.2 1.5-8.1 [facility] HospitalMulznvbHOXYIGSHSF7906-55-75 13:50:00 Test Item Value Reference Range Interpretation Comments Eosinophils (test code = 2.3 See_Comment [A utomated message] The Eosinophils) system which ge nerated this result tra nsmitted reference range : <=4.0. The reference r matthieu was not used to int erpret this result as normal/abnormal . [facility] HospitalYlofqxvEUCUOVDPCL7221-92-87 13:50:00 Test Item Value Reference Range Interpretation Comments Hgb (test code = Hgb) 15.2 14.0-18.0 [facility] HospitalNcayubkIOYVUKITQS7103-52-87 13:50:00 Test Item Value Reference Range Interpretation Comments WBC (test code = WBC) 7.9 3.7-10.4 [facility] HospitalIodsaeaTTJIOWIETE3539-01-38 13:50:00 Test Item Value Reference Range Interpretation Comments RBC (test code = RBC) 5.96 4.70-6.10 [facility] HospitalHmsvuhfSUHLIJRKMS1444-83-92 13:50:00 Test Item Value Reference Range Interpretation Comments MCH (test code = MCH) 25.4 pg 27.0-31.0 [facility] HospitalGrnizqrMVJFLXBDLS3385-46-76 13:50:00 Test Item Value Reference Range Interpretation Comments MCHC (test code = MCHC) 32.3 32.0-36.0 [facility] HospitalHpeqpghWWENFQWASU7564-30-72 13:50:00 Test Item Value Reference Range Interpretation Comments RDW (test code = RDW) 15.3 11.5-14.5 [facility] HospitalOmopwgqGABDHKFSBA9269-07-48 13:50:00 Test Item Value Reference Range Interpretation Comments Platelet (test code = Platelet) 313 133-450 [facility] HospitalWtkuzjjUSYMJXQHKB3246-77-51 13:50:00 Test Item Value Reference Range Interpretation Comments MPV (test code = MPV) 8.2 7.4-10.4 [facility] HospitalMfyjfwpHTYIAUVCYN5014-20-99 13:50:00 Test Item Value Reference Range Interpretation Comments MCV (test code = MCV) 78.6 80.0-94.0 [facility] HospitalIlexneaXICUHMYGAQ0701-61-59 13:50:00 Test Item Value Reference Range Interpretation Comments Hct (test code = Hct) 46.9 42.0-54.0 [facility] CWJXA7943-74-18 14:22:00 Test Item Value Reference Range Interpretation Comments Globulin (test code = Globulin) 4.3 2.0-4.0 [facility] HospitaltagWALLET EHHPP4565-05-93 14:22:00 Test Item Value Reference Range Interpretation Comments A/G Ratio (test code = A/G Ratio) 0.8 0.7-1.6 [facility]2015-01-18 14:22:00 Test Item Value Reference Range Interpretation Comments B/C Ratio (test code = B/C Ratio) 20 6-25 [facility]2015-01-18 14:22:00 Test Item Value Reference Range Interpretation Comments AGAP (test code = AGAP) 7.0 10.0-20.0 [place] 454205-01-18 14:22:00 Test Item Value Reference Range Interpretation Comments Potassium Lvl (test code = Potassium 4.0 3.5-5.1 Lvl) [facility]2015-01-18 14:22:00 Test Item Value Reference Range Interpretation Comments Calcium Lvl (test code = Calcium Lvl) 8.8 8.5-10.5 [facility]2015-01-18 14:22:00 Test Item Value Reference Range Interpretation Comments Chloride Lvl (test code = Chloride Lvl) 105 95-109 [facility]2015-01-18 14:22:00 Test Item Value Reference Range Interpretation Comments Sodium Lvl (test code = Sodium Lvl) 139 135-145 [facility]2015-01-18 14:22:00 Test Item Value Reference Range Interpretation Comments eGFR (test code = eGFR) 117 [facility]2015-01-18 14:22:00 Test Item Value Reference Range Interpretation Comments AST (test code = AST) 10 See_Comment [Auto mated message] The system which ge nerated this result transmit yanely reference range : <=37. The reference range was not used to interpr et this result as brielle l/abnormal. [facility]2015-01-18 14:22:00 Test Item Value Reference Range Interpretation Comments Creatinine Lvl (test code = Creatinine 0.7 0.5-1.4 Lvl) [facility]2015-01-18 14:22:00 Test Item Value Reference Range Interpretation Comments BUN (test code = BUN) 14 7-22 [facility]2015-01-18 14:22:00 Test Item Value Reference Range Interpretation Comments CO2 (test code = CO2) 31 24-32 [facility]2015-01-18 14:22:00 Test Item Value Reference Range Interpretation Comments Total Protein (test code = Total 7.8 6.4-8.4 Protein) [facility]2015-01-18 14:22:00 Test Item Value Reference Range Interpretation Comments ALT (test code = ALT) 22 See_Comment [Auto mated message] The system which ge nerated this result transmit yanely reference range : <=65. The reference range was not used to interpr et this result as brielle l/abnormal. [place] 454205-01-18 14:22:00 Test Item Value Reference Range Interpretation Comments Albumin Lvl (test code = Albumin Lvl) 3.5 3.5-5.0 [place] 454205-01-18 14:22:00 Test Item Value Reference Range Interpretation Comments Alk Phos (test code = Alk Phos) 117 39-136 [facility]2015-01-18 14:22:00 Test Item Value Reference Range Interpretation Comments Bili Total (test code = Bili Total) 0.2 0.2-1.3 [place] 454205-01-18 14:22:00 Test Item Value Reference Range Interpretation Comments Glucose Lvl (test code = Glucose Lvl) 90 70-99 [facility] HospitalTdeulmcUQLJZKPLWJ0769-22-83 14:22:00 Test Item Value Reference Range Interpretation Comments Plt Morph (test code = Normal (04/05/14 8:22 Plt Morph) AM) [facility] HospitalRmcelszRPCBYQBIJO3449-31-17 14:22:00 Test Item Value Reference Range Interpretation Comments RBC Morph (test code = Normal (04/05/14 8:22 RBC Morph) AM) [facility] HospitalRhwffrxVHKDIFZJOT8134-88-69 14:22:00 Test Item Value Reference Range Interpretation Comments Segs-Bands # (test code = Segs-Bands #) 4.9 1.5-8.1 [place] 766045-01-18 14:22:00 Test Item Value Reference Range Interpretation Comments Monocytes # (test code 0.7 See_Comment [Aut omated message] The = Monocytes #) system which generated this result tra nsmitted reference range : <=0.8. The reference r matthieu was not used to int erpret this result as normal/abnormal . [facility] HospitalIkwzdzjMWYKBXUGSR3659-48-81 14:22:00 Test Item Value Reference Range Interpretation Comments Eosinophils # (test code 0.2 See_Comment [A utomated message] The = Eosinophils #) system whic h generated this result tra nsmitted reference range : <=0.5. The reference r matthieu was not used to int erpret this result as normal/abnormal . [facility] HospitalCjvaexoBMLQZEXPOL1275-24-93 14:22:00 Test Item Value Reference Range Interpretation Comments Lymphocytes # (test code = Lymphocytes 2.3 1.0-5.5 #) [facility] HospitalByhuaveMBBQTBRFRI2696-99-96 14:22:00 Test Item Value Reference Range Interpretation Comments Monocytes (test code = Monocytes) 9.1 2.0-12.0 [facility] HospitalNpnjitdAQOXJYAKXF3156-85-57 14:22:00 Test Item Value Reference Range Interpretation Comments Lymphocytes (test code = Lymphocytes) 27.9 20.0-40.0 [facility] HospitalCtwtttmEGKLQFWNGJ3655-43-90 14:22:00 Test Item Value Reference Range Interpretation Comments Basophils (test code = 0.9 See_Comment [Aut omated message] The Basophils) system which ge nerated this result tra nsmitted reference range : <=1.0. The reference r matthieu was not used to int erpret this result as normal/abnormal . [facility] HospitalCbmypjzLBGVDURVOC9657-91-53 14:22:00 Test Item Value Reference Range Interpretation Comments Eosinophils (test code = 2.0 See_Comment [A utomated message] The Eosinophils) system which ge nerated this result tra nsmitted reference range : <=4.0. The reference r matthieu was not used to int erpret this result as normal/abnormal . [facility] HospitalScjtcwyPLMVWCLHJG7018-17-68 14:22:00 Test Item Value Reference Range Interpretation Comments Segs (test code = Segs) 60.1 45.0-75.0 [facility] HospitalFszewfuFXLEHRCIPS5743-69-94 14:22:00 Test Item Value Reference Range Interpretation Comments Microcyte (test code = 3+ *NA*(04/05/14 8:22 Microcyte) AM) [facility] HospitalXhhcixnYBGHDSHSXB9665-09-84 14:22:00 Test Item Value Reference Range Interpretation Comments Large Plt (test code = Large Plt) Slight [facility] HospitalPclcxkjXMBXZGYEWD3707-19-35 14:22:00 Test Item Value Reference Range Interpretation Comments Basophils # (test code 0.1 See_Comment [Aut omated message] The = Basophils #) system which generated this result tra nsmitted reference range : <=0.2. The reference r matthieu was not used to int erpret this result as normal/abnormal . [facility] HospitalAnpsnwmZRAWPHSMAJ1229-40-23 14:22:00 Test Item Value Reference Range Interpretation Comments INR (test code = INR) 0.94 0.85-1.17 [facility] HospitalFqxkqfvLQUEUTVAAQ7109-90-67 14:22:00 Test Item Value Reference Range Interpretation Comments PT (test code = PT) 12.5 s 12.0-14.7 [facility] HospitalDqlqnoiMZEBTWKIRM7147-40-46 14:22:00 Test Item Value Reference Range Interpretation Comments PTT (test code = PTT) 33.1 s 22.9-35.8 [facility] HospitalLhzdymwILFRMTBDBL4476-74-09 14:22:00 Test Item Value Reference Range Interpretation Comments MPV (test code = MPV) 8.1 7.4-10.4 [facility] HospitalUbsrdljYUDMNGDSAU6920-64-44 14:22:00 Test Item Value Reference Range Interpretation Comments Platelet (test code = Platelet) 381 133-450 [facility] HospitalDwlxhgjFVIYBPHARP7073-92-43 14:22:00 Test Item Value Reference Range Interpretation Comments MCHC (test code = MCHC) 31.3 32.0-36.0 [facility] HospitalCssxrtfLEVWIPEWTH4803-17-97 14:22:00 Test Item Value Reference Range Interpretation Comments RBC (test code = RBC) 5.58 4.70-6.10 [facility] HospitalHsqpmzjLEFQDMBWKA9060-37-89 14:22:00 Test Item Value Reference Range Interpretation Comments Hgb (test code = Hgb) 12.0 14.0-18.0 [facility] HospitalJqmsgklHZVJEQAFNL2008-76-67 14:22:00 Test Item Value Reference Range Interpretation Comments RDW (test code = RDW) 18.2 11.5-14.5 [facility] HospitalOktwcjtDRSGEKRBVA6972-35-62 14:22:00 Test Item Value Reference Range Interpretation Comments Hct (test code = Hct) 38.3 42.0-54.0 [facility] HospitalUnxhticZMUBKWXCEM4870-27-40 14:22:00 Test Item Value Reference Range Interpretation Comments MCH (test code = MCH) 21.5 pg 27.0-31.0 [facility] HospitalZkshocaCIULUQWDMI2783-11-03 14:22:00 Test Item Value Reference Range Interpretation Comments MCV (test code = MCV) 68.7 80.0-94.0 [place] 766045-01-18 14:22:00 Test Item Value Reference Range Interpretation Comments WBC (test code = WBC) 8.2 3.7-10.4 [facility]2014-11-10 07:30:00 Test Item Value Reference Range Interpretation Comments eGFR (test code = eGFR) 135 [facility]2014-11-10 07:30:00 Test Item Value Reference Range Interpretation Comments Glucose Lvl (test code = Glucose Lvl) 102 70-99 [facility]2014-11-10 07:30:00 Test Item Value Reference Range Interpretation Comments Potassium Lvl (test code = Potassium 3.9 3.5-5.1 Lvl) [facility]2014-11-10 07:30:00 Test Item Value Reference Range Interpretation Comments Chloride Lvl (test code = Chloride Lvl) 108 95-109 [facility]2014-11-10 07:30:00 Test Item Value Reference Range Interpretation Comments CO2 (test code = CO2) 21 24-32 [facility]2014-11-10 07:30:00 Test Item Value Reference Range Interpretation Comments BUN (test code = BUN) 6 7-22 [facility]2014-11-10 07:30:00 Test Item Value Reference Range Interpretation Comments Creatinine Lvl (test code = Creatinine 0.5 0.5-1.4 Lvl) [facility]2014-11-10 07:30:00 Test Item Value Reference Range Interpretation Comments Sodium Lvl (test code = Sodium Lvl) 140 135-145 [facility]2014-11-10 07:30:00 Test Item Value Reference Range Interpretation Comments Calcium Lvl (test code = Calcium Lvl) 8.0 8.5-10.5 [facility]2014-11-10 07:30:00 Test Item Value Reference Range Interpretation Comments AGAP (test code = AGAP) 14.9 10.0-20.0 [facility] HospitalQoqlyrfDZSXAFUCXA8131-68-89 07:30:00 Test Item Value Reference Range Interpretation Comments INR (test code = INR) 0.95 0.85-1.17 [facility] HospitalChzndhlOZEGIRFBEJ9356-38-88 07:30:00 Test Item Value Reference Range Interpretation Comments PT (test code = PT) 12.7 s 12.0-14.7 [facility] HospitalCgppmyqIYADSMUWMP0051-63-81 07:30:00 Test Item Value Reference Range Interpretation Comments PTT (test code = PTT) 38.6 s 22.9-35.8 [facility] HospitalKiagvyhLDVNPBDGDP6550-97-29 07:30:00 Test Item Value Reference Range Interpretation Comments Microcyte (test code = 2+ *ABN*(01/26/14 Microcyte) 1:30 AM) [facility] HospitalRvgmqgwWONULKMMNO5122-21-27 07:30:00 Test Item Value Reference Range Interpretation Comments Eosinophils # (test code 0.2 See_Comment [A utomated message] The = Eosinophils #) system whic h generated this result tra nsmitted reference range : <=0.5. The reference r matthieu was not used to int erpret this result as normal/abnormal . [facility] HospitalAdeoitgYOYAXBOTMX8856-26-43 07:30:00 Test Item Value Reference Range Interpretation Comments Lymphocytes # (test code = Lymphocytes 1.8 1.0-5.5 #) [facility] HospitalUpygahqMWUVWZVZCM2314-21-39 07:30:00 Test Item Value Reference Range Interpretation Comments Monocytes # (test code 0.6 See_Comment [Aut omated message] The = Monocytes #) system which generated this result tra nsmitted reference range : <=0.8. The reference r matthieu was not used to int erpret this result as normal/abnormal . [facility] HospitalUchybyzGFJOOTUEBS3187-89-36 07:30:00 Test Item Value Reference Range Interpretation Comments Segs-Bands # (test code = Segs-Bands #) 6.2 1.5-8.1 [facility] HospitalEbhnmyrZVWNYWCNOG9435-04-82 07:30:00 Test Item Value Reference Range Interpretation Comments Basophils (test code = 0.6 See_Comment [Aut omated message] The Basophils) system which ge nerated this result tra nsmitted reference range : <=1.0. The reference r matthieu was not used to int erpret this result as normal/abnormal . [facility] HospitalDfsdscrAACXMAPHCW3797-14-83 07:30:00 Test Item Value Reference Range Interpretation Comments Eosinophils (test code = 1.9 See_Comment [A utomated message] The Eosinophils) system which ge nerated this result tra nsmitted reference range : <=4.0. The reference r matthieu was not used to int erpret this result as normal/abnormal . [facility] HospitalKkyjlrcNWHYTLUZBE9942-91-26 07:30:00 Test Item Value Reference Range Interpretation Comments Segs (test code = Segs) 69.8 45.0-75.0 [facility] HospitalRgirlpvFDXMRDKYFH5128-63-68 07:30:00 Test Item Value Reference Range Interpretation Comments Lymphocytes (test code = Lymphocytes) 20.6 20.0-40.0 [facility] HospitalCrtnwssGHSHJRSPVC9388-09-02 07:30:00 Test Item Value Reference Range Interpretation Comments Monocytes (test code = Monocytes) 7.1 2.0-12.0 [facility] HospitalOxzfbnqQPQOTMSDYQ9059-15-29 07:30:00 Test Item Value Reference Range Interpretation Comments MCH (test code = MCH) 21.2 pg 27.0-31.0 [facility] HospitalSuwgjwtXFONUVJCKB6639-29-11 07:30:00 Test Item Value Reference Range Interpretation Comments MCHC (test code = MCHC) 30.4 32.0-36.0 [facility] HospitalYffeekrZSCBXAWRLA9927-36-95 07:30:00 Test Item Value Reference Range Interpretation Comments RDW (test code = RDW) 17.7 11.5-14.5 [facility] HospitalIlfapkcFCGFEFMRGE1897-36-83 07:30:00 Test Item Value Reference Range Interpretation Comments Platelet (test code = Platelet) 376 133-450 [facility] HospitalBhsgpqyHKRIWFBKRD5564-47-46 07:30:00 Test Item Value Reference Range Interpretation Comments MPV (test code = MPV) 8.5 7.4-10.4 [facility] HospitalQemosgoGIVQMWKDIK9963-91-09 07:30:00 Test Item Value Reference Range Interpretation Comments WBC (test code = WBC) 8.9 3.7-10.4 [facility] HospitalUxwjunzSNCISDXJFN9886-23-92 07:30:00 Test Item Value Reference Range Interpretation Comments RBC (test code = RBC) 4.30 4.70-6.10 [facility] HospitalNicvsibLPCBZRNNJI3818-15-99 07:30:00 Test Item Value Reference Range Interpretation Comments Hgb (test code = Hgb) 9.1 14.0-18.0 [facility] HospitalRqugrzeVHIWEGKELD8809-85-27 07:30:00 Test Item Value Reference Range Interpretation Comments Hct (test code = Hct) 30.0 42.0-54.0 [facility]NiquugxRFWXSPZKMQ8125-20-61 07:30:00 Test Item Value Reference Range Interpretation Comments MCV (test code = MCV) 69.7 80.0-94.0 [facility] [employer] ZBODLUM3425-62-17 06:10:00 Test Item Value Reference Range Interpretation Comments ABO/Rh (test code = ABO/Rh) O POS [facility] [employer] CSYMUQU0339-45-24 06:10:00 Test Item Value Reference Range Interpretation Comments Antibody Scrn (test Negative (01/26/14 code = Antibody Scrn) 12:10 AM) [employer]2014-11-07 19:38:00 Test Item Value Reference Range Interpretation Comments Protein CSF (test code = Protein CSF) 41 15-45 [facility]AvantBioJRERDS8571-61-68 19:38:00 Test Item Value Reference Range Interpretation Comments Glucose CSF (test code = Glucose CSF) 65 45-80 [facility] HospitalAvantBioCGNTWU2553-30-53 19:38:00 Test Item Value Reference Range Interpretation Comments Tube Num CSF (test code = Tube Num CSF) 3 1 [facility] [employer]2014-11-07 19:38:00 Test Item Value Reference Range Interpretation Comments RBC CSF (test code = 585 See_Comment [Autom ated message] The RBC CSF) system which ge nerated this result transmit yanely reference range : <=03. The reference range was not used to interpr et this result as brielle l/abnormal. [employer]2014-11-07 19:38:00 Test Item Value Reference Range Interpretation Comments Supernat CSF (test Colorless (01/23/14 1:38 code = Supernat CSF) PM) [facility] HospitalAvantBioREZNQI1088-93-38 19:38:00 Test Item Value Reference Range Interpretation Comments WBC CSF (test code = 4 See_Comment [Autom ated message] The WBC CSF) system which ge nerated this result transmit yanely reference range : <=53. The reference range was not used to interpr et this result as brielle l/abnormal. [employer]2014-11-07 19:38:00 Test Item Value Reference Range Interpretation Comments Color CSF (test code Colorless (01/23/14 1:38 = Color CSF) PM) [facility] [id number] 19:38:00 Test Item Value Reference Range Interpretation Comments Clarity CSF (test code = Clear (01/23/14 1:38 Clarity CSF) PM) [facility]CHEM FBDGB0199-34-26 09:29:00 Test Item Value Reference Range Interpretation Comments Phosphorus (test code = Phosphorus) 3.7 2.5-4.5 [facility]CHE[facility] MQTGO2987-16-37 09:29:00 Test Item Value Reference Range Interpretation Comments Magnesium Lvl (test code = Magnesium 1.7 1.8-2.4 Lvl) [facility]YiutjazDVCFVGJTZUCV7762-24-29 09:29:00 Test Item Value Reference Range Interpretation Comments AGAP (test code = AGAP) 12.2 10.0-20.0 [facility] MichiganYehuphzUXEEMXABNDCO6195-01-71 09:29:00 Test Item Value Reference Range Interpretation Comments eGFR (test code = eGFR) 117 [facility] MichiganTzavkztTEAVYRHZJIZW1672-16-97 09:29:00 Test Item Value Reference Range Interpretation Comments Potassium Lvl (test code = Potassium 4.2 3.5-5.1 Lvl) [facility] MichiganHtkcupiZUDFQFBPMAYV8533-75-18 09:29:00 Test Item Value Reference Range Interpretation Comments Calcium Lvl (test code = Calcium Lvl) 8.7 8.5-10.5 [facility]IlbkuveXIROYDZQPEMV1016-54-71 09:29:00 Test Item Value Reference Range Interpretation Comments CO2 (test code = CO2) 27 24-32 [facility] MichiganKzvslclXMYQLIVUKIXY6492-51-49 09:29:00 Test Item Value Reference Range Interpretation Comments Chloride Lvl (test code = Chloride Lvl) 107 95-109 [facility] MichiganRmjwsrhUWDBDNIVNSJU8508-59-20 09:29:00 Test Item Value Reference Range Interpretation Comments Creatinine Lvl (test code = Creatinine 0.7 0.5-1.4 Lvl) [facility] MichiganEmaalekYGODDCVQZFWO3811-15-24 09:29:00 Test Item Value Reference Range Interpretation Comments Sodium Lvl (test code = Sodium Lvl) 142 135-145 [facility] MichiganAgefcbcKFYDCBMPEUOQ9663-24-46 09:29:00 Test Item Value Reference Range Interpretation Comments BUN (test code = BUN) 7 7-22 [facility] MichiganFvlzherHJHAUTAMTRJB9006-34-06 09:29:00 Test Item Value Reference Range Interpretation Comments Glucose Lvl (test code = Glucose Lvl) 108 70-99 [facility] HospitalYamjrckTILIONUQER0067-64-15 09:29:00 Test Item Value Reference Range Interpretation Comments Eosinophils (test code = 1.0 See_Comment [A utomated message] The Eosinophils) system which ge nerated this result tra nsmitted reference range : <=4.0. The reference r matthieu was not used to int erpret this result as normal/abnormal . [facility] HospitalOwfjaenSKDRPOCFCZ9315-05-21 09:29:00 Test Item Value Reference Range Interpretation Comments Monocytes (test code = Monocytes) 10.4 2.0-12.0 [facility] HospitalSzpdsryYIBACUKGUL6364-18-01 09:29:00 Test Item Value Reference Range Interpretation Comments Lymphocytes (test code = Lymphocytes) 17.4 20.0-40.0 [facility] HospitalNlytfldVFUFIBPRLM5877-10-37 09:29:00 Test Item Value Reference Range Interpretation Comments Segs (test code = Segs) 70.7 45.0-75.0 [facility] HospitalSrxneflSBDVSOENNO2290-34-55 09:29:00 Test Item Value Reference Range Interpretation Comments Eosinophils # (test code 0.1 See_Comment [A utomated message] The = Eosinophils #) system whic h generated this result tra nsmitted reference range : <=0.5. The reference r matthieu was not used to int erpret this result as normal/abnormal . [facility] HospitalBupqxjsGHXTYUDXRG4158-27-88 09:29:00 Test Item Value Reference Range Interpretation Comments Monocytes # (test code 1.2 See_Comment [Aut omated message] The = Monocytes #) system which generated this result tra nsmitted reference range : <=0.8. The reference r matthieu was not used to int erpret this result as normal/abnormal . [facility] HospitalYyoxnzbEMVUEXTMRR9841-27-28 09:29:00 Test Item Value Reference Range Interpretation Comments Lymphocytes # (test code = Lymphocytes 2.1 1.0-5.5 #) [facility] HospitalBpjhqnnVEZHNABEOY0882-60-70 09:29:00 Test Item Value Reference Range Interpretation Comments Segs-Bands # (test code = Segs-Bands #) 8.3 1.5-8.1 [facility] HospitalWleblhqXZCIRUKBVH0477-12-16 09:29:00 Test Item Value Reference Range Interpretation Comments Basophils (test code = 0.5 See_Comment [Aut omated message] The Basophils) system which ge nerated this result tra nsmitted reference range : <=1.0. The reference r matthieu was not used to int erpret this result as normal/abnormal . [facility]XfklprqZANXMNYALY2087-58-96 09:29:00 Test Item Value Reference Range Interpretation Comments Microcyte (test code = 2+ *ABN*(01/23/14 Microcyte) 3:29 AM) [facility] HospitalZfppdwjROXOINHDPW4418-71-90 09:29:00 Test Item Value Reference Range Interpretation Comments Basophils # (test code 0.1 See_Comment [Aut omated message] The = Basophils #) system which generated this result tra nsmitted reference range : <=0.2. The reference r matthieu was not used to int erpret this result as normal/abnormal . [facility] HospitalOcyhlgqBMKORYGJHE0745-42-84 09:29:00 Test Item Value Reference Range Interpretation Comments RDW (test code = RDW) 18.0 11.5-14.5 [facility] HospitalHuguppxYUHMVNSZES5690-48-15 09:29:00 Test Item Value Reference Range Interpretation Comments MCHC (test code = MCHC) 31.2 32.0-36.0 [facility] HospitalBnnnmwhBDRYDYVMYO1822-85-60 09:29:00 Test Item Value Reference Range Interpretation Comments MCH (test code = MCH) 21.9 pg 27.0-31.0 [facility] HospitalAqcodvgSFEBPBLGQR8195-17-58 09:29:00 Test Item Value Reference Range Interpretation Comments MCV (test code = MCV) 70.3 80.0-94.0 [facility] HospitalRogsiacWXGPXUJNVL7916-54-76 09:29:00 Test Item Value Reference Range Interpretation Comments Hct (test code = Hct) 34.3 42.0-54.0 [facility] HospitalUcskgteAQEMEWPGFW7096-58-95 09:29:00 Test Item Value Reference Range Interpretation Comments Platelet (test code = Platelet) 355 133-450 [facility] HospitalEgwyhyvOHMFCYJAUE5908-74-18 09:29:00 Test Item Value Reference Range Interpretation Comments MPV (test code = MPV) 8.6 7.4-10.4 [facility] HospitalKbnkhepQDXONKRUON1032-75-92 09:29:00 Test Item Value Reference Range Interpretation Comments Hgb (test code = Hgb) 10.7 14.0-18.0 [facility] HospitalMxaaowrDOSUBSTIWI1554-16-43 09:29:00 Test Item Value Reference Range Interpretation Comments RBC (test code = RBC) 4.88 4.70-6.10 [facility] HospitalXtbuwklBHPWVJVMAI9025-38-11 09:29:00 Test Item Value Reference Range Interpretation Comments WBC (test code = WBC) 11.8 3.7-10.4 [facility]2014-11-07 09:29:00 Test Item Value Reference Range Interpretation Comments Ca Ion WB (test code = Ca Ion WB) 1.12 1.05-1.25 [facility]2014-11-07 09:29:00 Test Item Value Reference Range Interpretation Comments Ca Norm WB (test code = Ca Norm WB) 1.11 1.05-1.25 [facility]2014-11-06 06:37:00 Test Item Value Reference Range Interpretation Comments eGFR (test code = eGFR) 111 [facility]2014-11-06 06:37:00 Test Item Value Reference Range Interpretation Comments Sodium Lvl (test code = Sodium Lvl) 141 135-145 [facility]2014-11-06 06:37:00 Test Item Value Reference Range Interpretation Comments Creatinine Lvl (test code = Creatinine 0.8 0.5-1.4 Lvl) [facility]2014-11-06 06:37:00 Test Item Value Reference Range Interpretation Comments CO2 (test code = CO2) 28 24-32 [facility]2014-11-06 06:37:00 Test Item Value Reference Range Interpretation Comments Chloride Lvl (test code = Chloride Lvl) 105 95-109 [facility]2014-11-06 06:37:00 Test Item Value Reference Range Interpretation Comments Potassium Lvl (test code = Potassium 4.3 3.5-5.1 Lvl) [facility]2014-11-06 06:37:00 Test Item Value Reference Range Interpretation Comments BUN (test code = BUN) 9 7-22 [facility]2014-11-06 06:37:00 Test Item Value Reference Range Interpretation Comments Glucose Lvl (test code = Glucose Lvl) 119 70-99 [facility]2014-11-06 06:37:00 Test Item Value Reference Range Interpretation Comments Calcium Lvl (test code = Calcium Lvl) 8.7 8.5-10.5 [facility]2014-11-06 06:37:00 Test Item Value Reference Range Interpretation Comments AGAP (test code = AGAP) 12.3 10.0-20.0 [facility]2014-11-06 06:37:00 Test Item Value Reference Range Interpretation Comments Magnesium Lvl (test code = Magnesium 1.9 1.8-2.4 Lvl) [facility]2014-11-06 06:37:00 Test Item Value Reference Range Interpretation Comments Phosphorus (test code = Phosphorus) 4.3 2.5-4.5 [facility] HospitalWeitpciRLJYPIKDAA4723-05-48 06:37:00 Test Item Value Reference Range Interpretation Comments MPV (test code = MPV) 8.5 7.4-10.4 [facility] HospitalZdenvuaUSJCAKZEMT8287-23-17 06:37:00 Test Item Value Reference Range Interpretation Comments Hct (test code = Hct) 36.0 42.0-54.0 [facility] HospitalFzliqhxLYYLZXEXUZ7075-92-82 06:37:00 Test Item Value Reference Range Interpretation Comments Platelet (test code = Platelet) 394 133-450 [facility] HospitalBjqzwjeLYSQWJGQTA4241-37-99 06:37:00 Test Item Value Reference Range Interpretation Comments RDW (test code = RDW) 18.0 11.5-14.5 [facility] HospitalTvyulqoTXJJTUOCNV4161-31-63 06:37:00 Test Item Value Reference Range Interpretation Comments MCV (test code = MCV) 70.4 80.0-94.0 [facility] HospitalGvoelocWCTXOUDZUP8028-37-71 06:37:00 Test Item Value Reference Range Interpretation Comments MCHC (test code = MCHC) 31.7 32.0-36.0 [facility] HospitalWiuzedePHYJRVCJHP6290-98-25 06:37:00 Test Item Value Reference Range Interpretation Comments MCH (test code = MCH) 22.3 pg 27.0-31.0 [facility] HospitalDhpzyycWRHMAOFEEC9212-67-24 06:37:00 Test Item Value Reference Range Interpretation Comments RBC (test code = RBC) 5.12 4.70-6.10 [facility] HospitalCeybzydVEWESATKYL0788-22-97 06:37:00 Test Item Value Reference Range Interpretation Comments WBC (test code = WBC) 13.9 3.7-10.4 [facility] HospitalMseqffnHRSYKNHIXC2780-28-27 06:37:00 Test Item Value Reference Range Interpretation Comments Hgb (test code = Hgb) 11.4 14.0-18.0 [facility] HospitalCiadorfMNUQAPXCZE4040-97-27 06:37:00 Test Item Value Reference Range Interpretation Comments PTT (test code = PTT) 31.9 s 22.9-35.8 [facility] HospitalEcyqmazVOHHTJYJBM4396-24-04 06:37:00 Test Item Value Reference Range Interpretation Comments PT (test code = PT) 13.4 s 12.0-14.7 [facility] HospitalLcrxxlbKDMZSRKGFP9118-59-44 06:37:00 Test Item Value Reference Range Interpretation Comments INR (test code = INR) 1.02 0.85-1.17 [facility] HospitalGhagzujEMGXYLWMVK7721-97-63 06:37:00 Test Item Value Reference Range Interpretation Comments Eosinophils (test code = 0.1 See_Comment [A utomated message] The Eosinophils) system which ge nerated this result tra nsmitted reference range : <=4.0. The reference r matthieu was not used to int erpret this result as normal/abnormal . [facility] HospitalNtowjigPCXSVQGESJ1200-28-31 06:37:00 Test Item Value Reference Range Interpretation Comments Lymphocytes (test code = Lymphocytes) 13.0 20.0-40.0 [facility] HospitalOcjlvrdJGCVQGONQP5614-00-82 06:37:00 Test Item Value Reference Range Interpretation Comments Basophils (test code = 0.3 See_Comment [Aut omated message] The Basophils) system which ge nerated this result tra nsmitted reference range : <=1.0. The reference r matthieu was not used to int erpret this result as normal/abnormal . [facility] HospitalIggznowNTVPRJGJQX1915-59-22 06:37:00 Test Item Value Reference Range Interpretation Comments Monocytes (test code = Monocytes) 10.2 2.0-12.0 [facility] HospitalGingbmgEPVXYLSWYR3935-54-55 06:37:00 Test Item Value Reference Range Interpretation Comments Segs-Bands # (test code = Segs-Bands #) 10.7 1.5-8.1 [facility] HospitalWhtmoafNJZKRVZENI0846-22-20 06:37:00 Test Item Value Reference Range Interpretation Comments Segs (test code = Segs) 76.4 45.0-75.0 [facility] HospitalDszcrqeEVUYDBAOSY2557-24-85 06:37:00 Test Item Value Reference Range Interpretation Comments Lymphocytes # (test code = Lymphocytes 1.8 1.0-5.5 #) [facility] HospitalMfnfagfLCLCKVTQHG7200-18-01 06:37:00 Test Item Value Reference Range Interpretation Comments Microcyte (test code = 2+ *ABN*(01/22/14 Microcyte) 12:37 AM) [facility] HospitalEfgsyrpADMBJEIGBF7426-84-51 06:37:00 Test Item Value Reference Range Interpretation Comments Monocytes # (test code 1.4 See_Comment [Aut omated message] The = Monocytes #) system which generated this result tra nsmitted reference range : <=0.8. The reference r matthieu was not used to int erpret this result as normal/abnormal . [facility]2014-11-06 06:37:00 Test Item Value Reference Range Interpretation Comments Ca Ion WB (test code = Ca Ion WB) 1.09 1.05-1.25 [facility]2014-11-06 06:37:00 Test Item Value Reference Range Interpretation Comments Ca Norm WB (test code = Ca Norm WB) 1.10 1.05-1.25 [facility] HospitalUvsvwejQHELMNQDGJ6829-66-98 18:35:00 Test Item Value Reference Range Interpretation Comments Anisocyte (test code = 1+ *ABN*(01/21/14 Anisocyte) 12:35 PM) [facility] HospitalAdgsgptTBWZNUGUMO9805-93-55 18:35:00 Test Item Value Reference Range Interpretation Comments Hypochrom (test code = 1+ (01/21/14 12:35 Hypochrom) PM) [facility] HospitalMlnkjrwRTXEKSCWMB1251-42-93 18:35:00 Test Item Value Reference Range Interpretation Comments Large Plt (test code Moderate *ABN*(01/21/14 = Large Plt) 12:35 PM) [facility] HospitalBgslnzcHPWCILDBWH5979-09-02 13:52:00 Test Item Value Reference Range Interpretation Comments Eosinophils # (test code 0.3 See_Comment [A utomated message] The = Eosinophils #) system whic h generated this result tra nsmitted reference range : <=0.5. The reference r matthieu was not used to int erpret this result as normal/abnormal . [facility] [id number] 07:45:00 Test Item Value Reference Range Interpretation Comments MRSA by PCR (test Negative 14(01/21/14 1:45 code = MRSA by PCR) AM) [facility]tag[facility] [id number] 07:45:00 Test Item Value Reference Range Interpretation Comments Albumin Lvl (test code = Albumin Lvl) 3.7 3.5-5.0 [facility]2014-11-05 07:45:00 Test Item Value Reference Range Interpretation Comments Total Protein (test code = Total 7.3 6.4-8.4 Protein) [facility]2014-11-05 07:45:00 Test Item Value Reference Range Interpretation Comments Bili Total (test code = Bili Total) 0.3 0.2-1.3 [facility]tag[facility] [id number] 07:45:00 Test Item Value Reference Range Interpretation Comments ALT (test code = ALT) 22 See_Comment [Auto mated message] The system which ge nerated this result transmit yanely reference range : <=65. The reference range was not used to interpr et this result as brielle l/abnormal. [facility] [id number] 07:45:00 Test Item Value Reference Range Interpretation Comments AST (test code = AST) 11 See_Comment [Auto mated message] The system which ge nerated this result transmit yanely reference range : <=37. The reference range was not used to interpr et this result as brielle l/abnormal. [facility] [id number] 07:45:00 Test Item Value Reference Range Interpretation Comments Alk Phos (test code = Alk Phos) 99 39-136 [facility] [id number] 07:45:00 Test Item Value Reference Range Interpretation Comments A/G Ratio (test code = A/G Ratio) 1.0 0.7-1.6 [facility] [id number] 07:45:00 Test Item Value Reference Range Interpretation Comments Globulin (test code = Globulin) 3.6 2.0-4.0 [facility] [id number] 07:45:00 Test Item Value Reference Range Interpretation Comments B/C Ratio (test code = B/C Ratio) 18 6-25 [facility] [id number] 07:45:00 Test Item Value Reference Range Interpretation Comments Lactic Acid Lvl (test code = Lactic 1.2 0.5-2.2 Acid Lvl) [facility] HospitalUbtxaioGEZLVWZJEM5750-99-60 07:45:00 Test Item Value Reference Range Interpretation Comments PTT (test code = PTT) 35.3 s 22.9-35.8 [facility] HospitalJskkryaMZDKVROCPA0792-02-33 07:45:00 Test Item Value Reference Range Interpretation Comments PT (test code = PT) 13.1 s 12.0-14.7 [facility] HospitalRmnhzyeDKCYHWLRCM3704-13-40 07:45:00 Test Item Value Reference Range Interpretation Comments INR (test code = INR) 0.99 0.85-1.17 [facility] AND [id number] 07:45:00 Test Item Value Reference Range Interpretation Comments UA Urobilinogen (test code = UA <=1.0 mg/dL 0.1-1.0 Urobilinogen) [facility] AND [id number] 07:45:00 Test Item Value Reference Range Interpretation Comments UA Sq Epi (test code = UA Sq Epi) None Seen [facility] AND [id number] 07:45:00 Test Item Value Reference Range Interpretation Comments UA Mucus (test code = UA Mucus) Many /LPF [facility] AND [id number] 07:45:00 Test Item Value Reference Range Interpretation Comments UA Nitrite (test code Negative (01/21/14 1:45 = UA Nitrite) AM) [facility] AND [id number] 07:45:00 Test Item Value Reference Range Interpretation Comments UA Blood (test code = Negative (01/21/14 1:45 UA Blood) AM) [facility] AND [id number] 07:45:00 Test Item Value Reference Range Interpretation Comments UA Leuk Est (test Negative (01/21/14 1:45 code = UA Leuk Est) AM) [facility] AND [id number] 07:45:00 Test Item Value Reference Range Interpretation Comments UA WBC (test code = 3 See_Comment [Automa yanely message] The UA WBC) system which ge nerated this result transmit yanely reference range : <=5. The reference range was not used to interpr et this result as brielle l/abnormal. [facility] AND [id number] 07:45:00 Test Item Value Reference Range Interpretation Comments UA Color (test code = Yellow *NA*(01/21/14 UA Color) 1:45 AM) [facility] AND [id number] 07:45:00 Test Item Value Reference Range Interpretation Comments UA Spec Grav (test code = UA Spec Grav) 1.022 [facility] AND [id number] 07:45:00 Test Item Value Reference Range Interpretation Comments UA Turbidity (test code = Clear (01/21/14 1:45 UA Turbidity) AM) [facility] AND [id number] 07:45:00 Test Item Value Reference Range Interpretation Comments UA Protein (test code = UA Protein) 20 mg/dL [facility] AND [id number] 07:45:00 Test Item Value Reference Range Interpretation Comments UA pH (test code = UA pH) 6.0 5.0-8.0 [facility] AND [id number] 07:45:00 Test Item Value Reference Range Interpretation Comments UA Ketones (test code = UA Negative mg/dL Ketones) [facility] AND [id number] 07:45:00 Test Item Value Reference Range Interpretation Comments UA Glucose (test code = UA Negative mg/dL Glucose) [facility] AND [id number] 07:45:00 Test Item Value Reference Range Interpretation Comments UA Bili (test code = Negative *NA*(01/21/14 UA Bili) 1:45 AM) [facility] [employer] [id number] 07:40:00 Test Item Value Reference Range Interpretation Comments Antibody Scrn (test Negative (01/21/14 1:40 code = Antibody Scrn) AM) [facility] [employer] [id number] 07:40:00 Test Item Value Reference Range Interpretation Comments ABO/Rh (test code = ABO/Rh) O POS [facility] HospitalQksomboFUPCTQIGTQ5699-05-77 17:34:00 Test Item Value Reference Range Interpretation Comments Hgb (test code = Hgb) 9.4 14.0-18.0 [facility] HospitalOgpuuanYBSBCFJBTD8321-03-17 17:34:00 Test Item Value Reference Range Interpretation Comments Hct (test code = Hct) 28.4 42.0-54.0 [facility]2014-08-18 05:40:00 Test Item Value Reference Range Interpretation Comments Phosphorus (test code = Phosphorus) 4.5 2.5-4.5 [facility]2014-08-18 05:40:00 Test Item Value Reference Range Interpretation Comments Magnesium Lvl (test code = Magnesium 1.8 1.8-2.4 Lvl) [facility]QvctxohXLDWACNGPTUY0996-08-32 05:40:00 Test Item Value Reference Range Interpretation Comments AGAP (test code = AGAP) 12.7 10.0-20.0 [facility]VewrvelUOYYDJAWGVBI4543-51-24 05:40:00 Test Item Value Reference Range Interpretation Comments eGFR (test code = eGFR) 125 [facility] MichiganJnsqslsDELIEMNVXOOG1720-17-78 05:40:00 Test Item Value Reference Range Interpretation Comments Creatinine Lvl (test code = Creatinine 0.6 0.5-1.4 Lvl) [facility] MichiganGbzqxdePQFGUKQAMIOT5887-54-43 05:40:00 Test Item Value Reference Range Interpretation Comments Calcium Lvl (test code = Calcium Lvl) 9.0 8.5-10.5 [facility] MichiganZauvwxfQSZXIPFUHGLA6220-54-18 05:40:00 Test Item Value Reference Range Interpretation Comments CO2 (test code = CO2) 30 24-32 [facility] MichiganVuctaryFVQMEZZYJDOX3143-07-32 05:40:00 Test Item Value Reference Range Interpretation Comments Chloride Lvl (test code = Chloride Lvl) 99 95-109 [facility] MichiganCfxzqolQPAMVKJVXKCF1428-32-78 05:40:00 Test Item Value Reference Range Interpretation Comments BUN (test code = BUN) 18 7-22 [facility] MichiganZaxwsxeTLXKXZBVWIMU9169-67-04 05:40:00 Test Item Value Reference Range Interpretation Comments Glucose Lvl (test code = Glucose Lvl) 101 70-99 [facility] MichiganHcekuyyVAWKXIJYACMS4396-20-33 05:40:00 Test Item Value Reference Range Interpretation Comments Potassium Lvl (test code = Potassium 4.7 3.5-5.1 Lvl) [facility] MichiganMgajrwcJFQSRUNZDVDG0487-78-89 05:40:00 Test Item Value Reference Range Interpretation Comments Sodium Lvl (test code = Sodium Lvl) 137 135-145 [facility]HchnhzgEYISGJUMJO4146-55-39 05:40:00 Test Item Value Reference Range Interpretation Comments WBC (test code = WBC) 9.9 3.7-10.4 [facility] HospitalKcmzwikAFPFLCBJKW0080-89-33 05:40:00 Test Item Value Reference Range Interpretation Comments RBC (test code = RBC) 3.33 4.70-6.10 [facility] HospitalYatggyaJUGHWPACCL8315-94-70 05:40:00 Test Item Value Reference Range Interpretation Comments Hgb (test code = Hgb) 9.8 14.0-18.0 [facility] HospitalKshwfsvANFEIATYGD4534-96-34 05:40:00 Test Item Value Reference Range Interpretation Comments Hct (test code = Hct) 28.5 42.0-54.0 [facility] HospitalSqbtkqmOANDHPZYLT4011-71-21 05:40:00 Test Item Value Reference Range Interpretation Comments MCH (test code = MCH) 29.4 pg 27.0-31.0 [facility] HospitalZqzjudlBEXEBWYYGO9414-08-60 05:40:00 Test Item Value Reference Range Interpretation Comments MCV (test code = MCV) 85.6 80.0-94.0 [facility] HospitalJvcunylBCFYSCFNTF7318-98-19 05:40:00 Test Item Value Reference Range Interpretation Comments MCHC (test code = MCHC) 34.4 32.0-36.0 [facility] HospitalZbzoyryDLYLXZSVCK9366-85-45 05:40:00 Test Item Value Reference Range Interpretation Comments RDW (test code = RDW) 15.1 11.5-14.5 [facility] HospitalDjpvspkBWVRBOCIIQ8206-82-87 05:40:00 Test Item Value Reference Range Interpretation Comments Platelet (test code = Platelet) 469 133450 [facility] HospitalMfsrlxjVIIVIJMITX8998-21-77 05:40:00 Test Item Value Reference Range Interpretation Comments MPV (test code = MPV) 8.4 7.4-10.4 [facility] HospitalHtamgtyLFLNPHHIWY4163-02-78 05:40:00 Test Item Value Reference Range Interpretation Comments Eosinophils # (test code 0.2 See_Comment [A utomated message] The = Eosinophils #) system whic h generated this result tra nsmitted reference range : <=0.5. The reference r matthieu was not used to int erpret this result as normal/abnormal . [facility] HospitalFyyczvpFHIBJPNUOX1550-68-16 05:40:00 Test Item Value Reference Range Interpretation Comments Segs-Bands # (test code = Segs-Bands #) 6.8 1.5-8.1 [facility] HospitalOnqnowwQIXSDVLHHI6586-37-61 05:40:00 Test Item Value Reference Range Interpretation Comments Lymphocytes # (test code = Lymphocytes 1.9 1.0-5.5 #) [facility] HospitalYvbsmtoWAURAKSZJV1938-74-28 05:40:00 Test Item Value Reference Range Interpretation Comments Monocytes # (test code 1.0 See_Comment [Aut omated message] The = Monocytes #) system which generated this result tra nsmitted reference range : <=0.8. The reference r matthieu was not used to int erpret this result as normal/abnormal . [facility] HospitalIhgnxycROIKKZBQVP0321-48-84 05:40:00 Test Item Value Reference Range Interpretation Comments Lymphocytes (test code = Lymphocytes) 19.0 20.0-40.0 [facility] HospitalWjvipwyEDBMCUOVME0715-06-63 05:40:00 Test Item Value Reference Range Interpretation Comments Basophils (test code = 0.5 See_Comment [Aut omated message] The Basophils) system which ge nerated this result tra nsmitted reference range : <=1.0. The reference r matthieu was not used to int erpret this result as normal/abnormal . [facility] HospitalEcreuujORHGFROXXU2385-51-26 05:40:00 Test Item Value Reference Range Interpretation Comments Eosinophils (test code = 2.0 See_Comment [A utomated message] The Eosinophils) system which ge nerated this result tra nsmitted reference range : <=4.0. The reference r matthieu was not used to int erpret this result as normal/abnormal . [facility] HospitalCbcxnfsEFZDGVEHUC3857-12-91 05:40:00 Test Item Value Reference Range Interpretation Comments Monocytes (test code = Monocytes) 9.9 2.0-12.0 [facility] HospitalJfkklvqTLGRVWXRZJ7241-27-06 05:40:00 Test Item Value Reference Range Interpretation Comments Segs (test code = Segs) 68.6 45.0-75.0 [facility]2014-08-18 05:40:00 Test Item Value Reference Range Interpretation Comments Ca Ion WB (test code = Ca Ion WB) 1.13 1.05-1.25 [facility]2014-08-18 05:40:00 Test Item Value Reference Range Interpretation Comments Ca Norm WB (test code = Ca Norm WB) 1.16 1.05-1.25 [facility] [id number] 16:30:02 Test Item Value Reference Range Interpretation Comments UA Bacteria (test code = UA Occasional /HPF Bacteria) [facility] [id number] 16:30:02 Test Item Value Reference Range Interpretation Comments UA Mucus (test code = UA Mucus) Few /LPF [facility] [id number] 16:30:02 Test Item Value Reference Range Interpretation Comments UA WBC (test code = no gt See_Comment [Automa yanely message] The UA WBC) system which ge nerated this result transmit yanely reference range : <=5. The reference range was not used to interpr et this result as brielle l/abnormal. [facility] [id number] 16:30:02 Test Item Value Reference Range Interpretation Comments UA RBC (test code = 1 See_Comment [Automa yanely message] The UA RBC) system which ge nerated this result transmit yanely reference range : <=2. The reference range was not used to interpr et this result as brielle l/abnormal. [facility] [id number] 16:30:02 Test Item Value Reference Range Interpretation Comments UA Urobilinogen (test code = UA <=1.0 mg/dL 0.1-1.0 Urobilinogen) [facility] AND [id number] 16:30:02 Test Item Value Reference Range Interpretation Comments UA Sq Epi (test code = UA Sq Occasional /LPF Epi) [facility] AND [id number] 16:30:02 Test Item Value Reference Range Interpretation Comments UA Leuk Est (test Negative (11/02/13 11:30 code = UA Leuk Est) AM) [facility] AND [id number] 16:30:02 Test Item Value Reference Range Interpretation Comments UA Amorph Danyelle (test code = Occasional /HPF UA Amorph Danyelle) [facility] [id number] 16:30:02 Test Item Value Reference Range Interpretation Comments UA Spec Grav (test code = UA Spec Grav) 1.009 [facility] [id number] 16:30:02 Test Item Value Reference Range Interpretation Comments UA Protein (test code = UA Negative mg/dL Protein) [facility] [id number] 16:30:02 Test Item Value Reference Range Interpretation Comments UA Turbidity (test code Slight *ABN*(11/02/13 = UA Turbidity) 11:30 AM) [facility] [id number] 16:30:02 Test Item Value Reference Range Interpretation Comments UA Color (test code = Yellow *NA*(11/02/13 UA Color) 11:30 AM) [facility] [id number] 16:30:02 Test Item Value Reference Range Interpretation Comments UA pH (test code = UA pH) 7.0 5.0-8.0 [facility] [id number] 16:30:02 Test Item Value Reference Range Interpretation Comments UA Nitrite (test code Negative (11/02/13 11:30 = UA Nitrite) AM) [facility] [id number] 16:30:02 Test Item Value Reference Range Interpretation Comments UA Ketones (test code = UA Negative mg/dL Ketones) [facility] [id number] 16:30:02 Test Item Value Reference Range Interpretation Comments UA Glucose (test code = UA Negative mg/dL Glucose) [facility] [id number] 16:30:02 Test Item Value Reference Range Interpretation Comments UA Blood (test code = Negative (11/02/13 11:30 UA Blood) AM) [facility] [id number] 16:30:02 Test Item Value Reference Range Interpretation Comments UA Bili (test code = Negative *NA*(11/02/13 UA Bili) 11:30 AM) [facility] [id number] 04:47:00 Test Item Value Reference Range Interpretation Comments Phosphorus (test code = Phosphorus) 4.3 2.5-4.5 [facility] [id number] 04:47:00 Test Item Value Reference Range Interpretation Comments Magnesium Lvl (test code = Magnesium 1.6 1.8-2.4 Lvl) [facility] ZakliumYITFHIEYCMEP2640-70-23 04:47:00 Test Item Value Reference Range Interpretation Comments AGAP (test code = AGAP) 12.5 10.0-20.0 [facility]HfooqddWTLHKYZBHDFD8651-70-32 04:47:00 Test Item Value Reference Range Interpretation Comments eGFR (test code = eGFR) 125 [facility] MichiganUirksxmZWVIGXTJPMPG3315-38-07 04:47:00 Test Item Value Reference Range Interpretation Comments Potassium Lvl (test code = Potassium 4.5 3.5-5.1 Lvl) [facility] MichiganKgjpttgOMNEVEVMGYSC7341-20-20 04:47:00 Test Item Value Reference Range Interpretation Comments Sodium Lvl (test code = Sodium Lvl) 138 135-145 [facility] MichiganQruydruISHUFOUWVVFQ6041-51-10 04:47:00 Test Item Value Reference Range Interpretation Comments CO2 (test code = CO2) 29 24-32 [facility] MichiganIiqjuxvMLAQUFWDYJXI0806-86-45 04:47:00 Test Item Value Reference Range Interpretation Comments Chloride Lvl (test code = Chloride Lvl) 101 95-109 [facility] MichiganHrkvgnrGTIEWUZEJERO2733-30-30 04:47:00 Test Item Value Reference Range Interpretation Comments Calcium Lvl (test code = Calcium Lvl) 9.1 8.5-10.5 [facility] MichiganBxoegzfFMIZHGRHYWLK7001-28-98 04:47:00 Test Item Value Reference Range Interpretation Comments Creatinine Lvl (test code = Creatinine 0.6 0.5-1.4 Lvl) [facility] MichiganJbdogtiDGLJCGCQAAYI9166-52-67 04:47:00 Test Item Value Reference Range Interpretation Comments Glucose Lvl (test code = Glucose Lvl) 129 70-99 [facility] MichiganStwtfqrIAKHLPNLZMGG6144-97-41 04:47:00 Test Item Value Reference Range Interpretation Comments BUN (test code = BUN) 18 7-22 [facility]RbzumbpDKOYTYWTKN5859-30-55 04:47:00 Test Item Value Reference Range Interpretation Comments MCH (test code = MCH) 29.6 pg 27.0-31.0 [facility] HospitalYzfmkbcNWPOPOAKAC9173-34-05 04:47:00 Test Item Value Reference Range Interpretation Comments MCHC (test code = MCHC) 33.9 32.0-36.0 [facility] HospitalQconqivGTBCIKUVPC4581-30-70 04:47:00 Test Item Value Reference Range Interpretation Comments MPV (test code = MPV) 8.1 7.4-10.4 [facility] HospitalUppvimuHCAMEHDJOL5473-02-55 04:47:00 Test Item Value Reference Range Interpretation Comments RDW (test code = RDW) 15.0 11.5-14.5 [facility] HospitalIktftcxLMPSMLKKCV4241-22-18 04:47:00 Test Item Value Reference Range Interpretation Comments Platelet (test code = Platelet) 470 133-450 [place] 766044-08-17 04:47:00 Test Item Value Reference Range Interpretation Comments WBC (test code = WBC) 9.5 3.7-10.4 [facility] HospitalTlorjviIMSXTMJHMC3195-30-02 04:47:00 Test Item Value Reference Range Interpretation Comments MCV (test code = MCV) 87.4 80.0-94.0 [place] [address]-08-17 04:47:00 Test Item Value Reference Range Interpretation Comments Hct (test code = Hct) 27.9 42.0-54.0 [facility] HospitalSjvdffqFLWPAMCMQH3328-10-16 04:47:00 Test Item Value Reference Range Interpretation Comments RBC (test code = RBC) 3.19 4.70-6.10 [facility] HospitalHpkekqiBELEQKIPYV6550-49-40 04:47:00 Test Item Value Reference Range Interpretation Comments Hgb (test code = Hgb) 9.4 14.0-18.0 [facility] HospitalOtkybwqLCUIYXEAFB7391-80-97 04:47:00 Test Item Value Reference Range Interpretation Comments Segs (test code = Segs) 67.6 45.0-75.0 [facility] HospitalCsefodsISAIKVCXPJ3987-84-35 04:47:00 Test Item Value Reference Range Interpretation Comments Polychrom (test code = Slight (11/01/13 11:47 Polychrom) PM) [facility] HospitalRkvvvbbKTLFRGDAOH5176-89-10 04:47:00 Test Item Value Reference Range Interpretation Comments Monocytes # (test code 0.9 See_Comment [Aut omated message] The = Monocytes #) system which generated this result tra nsmitted reference range : <=0.8. The reference r matthieu was not used to int erpret this result as normal/abnormal . [facility] HospitalRlfbeplWFDMONRZJB8691-35-53 04:47:00 Test Item Value Reference Range Interpretation Comments Eosinophils # (test code 0.2 See_Comment [A utomated message] The = Eosinophils #) system whic h generated this result tra nsmitted reference range : <=0.5. The reference r matthieu was not used to int erpret this result as normal/abnormal . [facility] HospitalSlqbiycZGOLHOWNNZ7888-10-74 04:47:00 Test Item Value Reference Range Interpretation Comments Segs-Bands # (test code = Segs-Bands #) 6.4 1.5-8.1 [facility] HospitalBnbotnnIAJSUSVDQS6638-95-48 04:47:00 Test Item Value Reference Range Interpretation Comments Lymphocytes # (test code = Lymphocytes 1.9 1.0-5.5 #) [facility] HospitalAndclknSZHCSLTUWT4348-66-13 04:47:00 Test Item Value Reference Range Interpretation Comments Eosinophils (test code = 2.2 See_Comment [A utomated message] The Eosinophils) system which ge nerated this result tra nsmitted reference range : <=4.0. The reference r matthieu was not used to int erpret this result as normal/abnormal . [facility] HospitalHfgurfhXWNQNUJJTB7961-04-71 04:47:00 Test Item Value Reference Range Interpretation Comments Basophils (test code = 0.5 See_Comment [Aut omated message] The Basophils) system which ge nerated this result tra nsmitted reference range : <=1.0. The reference r matthieu was not used to int erpret this result as normal/abnormal . [facility] HospitalGnizkkzRVJFHWGBWS9527-96-02 04:47:00 Test Item Value Reference Range Interpretation Comments Lymphocytes (test code = Lymphocytes) 20.1 20.0-40.0 [facility] HospitalLerfhuwVKVINYLTLR1869-84-82 04:47:00 Test Item Value Reference Range Interpretation Comments Monocytes (test code = Monocytes) 9.6 2.0-12.0 [facility] HospitalBbphuetIUFVIGWPXM2510-40-07 04:47:00 Test Item Value Reference Range Interpretation Comments Elliptocyte (test code = Slight *ABN*(11/01/13 Elliptocyte) 11:47 PM) [facility] HospitalWhjrpniPWVPXVDGFT6765-51-93 04:47:00 Test Item Value Reference Range Interpretation Comments Plt Morph (test code = Normal (11/01/13 11:47 Plt Morph) PM) [facility]2014-08-17 04:47:00 Test Item Value Reference Range Interpretation Comments Ca Ion WB (test code = Ca Ion WB) 1.19 1.05-1.25 [facility]2014-08-17 04:47:00 Test Item Value Reference Range Interpretation Comments Ca Norm WB (test code = Ca Norm WB) 1.19 1.05-1.25 [facility]2014-08-16 16:59:46 Test Item Value Reference Range Interpretation Comments Magnesium Lvl (test code = Magnesium 2.0 1.8-2.4 Lvl) [facility]2014-08-16 05:30:14 Test Item Value Reference Range Interpretation Comments Phosphorus (test code = Phosphorus) 3.5 2.5-4.5 [facility]2014-08-16 05:30:14 Test Item Value Reference Range Interpretation Comments eGFR (test code = eGFR) 135 [facility]2014-08-16 05:30:14 Test Item Value Reference Range Interpretation Comments Potassium Lvl (test code = Potassium 4.7 3.5-5.1 Lvl) [facility]2014-08-16 05:30:14 Test Item Value Reference Range Interpretation Comments Calcium Lvl (test code = Calcium Lvl) 9.1 8.5-10.5 [facility]2014-08-16 05:30:14 Test Item Value Reference Range Interpretation Comments Chloride Lvl (test code = Chloride Lvl) 104 95-109 [facility]2014-08-16 05:30:14 Test Item Value Reference Range Interpretation Comments CO2 (test code = CO2) 27 24-32 [facility]2014-08-16 05:30:14 Test Item Value Reference Range Interpretation Comments Sodium Lvl (test code = Sodium Lvl) 141 135-145 [facility]2014-08-16 05:30:14 Test Item Value Reference Range Interpretation Comments Creatinine Lvl (test code = Creatinine 0.5 0.5-1.4 Lvl) [facility]2014-08-16 05:30:14 Test Item Value Reference Range Interpretation Comments Glucose Lvl (test code = Glucose Lvl) 121 70-99 [facility]2014-08-16 05:30:14 Test Item Value Reference Range Interpretation Comments BUN (test code = BUN) 17 7-22 [facility]2014-08-16 05:30:14 Test Item Value Reference Range Interpretation Comments AGAP (test code = AGAP) 14.7 10.0-20.0 [facility] HospitalBmzywagXMLUSAUEMI4129-37-69 05:30:14 Test Item Value Reference Range Interpretation Comments PT (test code = PT) 13.0 s 12.0-14.7 [facility] HospitalTvitmyjSYAZWIWNGJ0298-47-40 05:30:14 Test Item Value Reference Range Interpretation Comments PTT (test code = PTT) 33.5 s 22.9-35.8 [facility] HospitalIpwjhfaJEYMQJERRY6458-78-44 05:30:14 Test Item Value Reference Range Interpretation Comments INR (test code = INR) 0.99 0.85-1.17 [facility]2014-08-16 05:30:12 Test Item Value Reference Range Interpretation Comments Ca Norm WB (test code = Ca Norm WB) 1.14 1.05-1.25 [facility]2014-08-16 05:30:12 Test Item Value Reference Range Interpretation Comments Ca Ion WB (test code = Ca Ion WB) 1.13 1.05-1.25 [facility] HospitalVxngixkGHMLRIYGCK1006-47-48 05:30:04 Test Item Value Reference Range Interpretation Comments MPV (test code = MPV) 8.6 7.4-10.4 [facility] HospitalLpxlntkXTTAKBOGLX0974-76-51 05:30:04 Test Item Value Reference Range Interpretation Comments Platelet (test code = Platelet) 457 133-450 [facility] HospitalUlmqqzxTYZKUOGPXH1358-91-35 05:30:04 Test Item Value Reference Range Interpretation Comments RDW (test code = RDW) 14.8 11.5-14.5 [facility] HospitalAtyzgftLJDCDJEMFH8905-89-96 05:30:04 Test Item Value Reference Range Interpretation Comments MCHC (test code = MCHC) 32.4 32.0-36.0 [facility] HospitalHcfoybuDQUFLOUCJJ5074-29-21 05:30:04 Test Item Value Reference Range Interpretation Comments MCV (test code = MCV) 87.7 80.0-94.0 [facility] HospitalIsknkchAPTIUWSUBP2112-14-40 05:30:04 Test Item Value Reference Range Interpretation Comments MCH (test code = MCH) 28.5 pg 27.0-31.0 [facility] HospitalKtzdqlsGGNUTUFRKW4082-06-89 05:30:04 Test Item Value Reference Range Interpretation Comments RBC (test code = RBC) 3.12 4.70-6.10 [facility] HospitalJbttzhaIXSYSJCQAF9243-22-36 05:30:04 Test Item Value Reference Range Interpretation Comments WBC (test code = WBC) 10.1 3.7-10.4 [facility] HospitalZoudqkmEQANELKNSF4497-19-75 05:30:04 Test Item Value Reference Range Interpretation Comments RBC Morph (test code = Normal (11/01/13 12:30 RBC Morph) AM) [facility] HospitalUtfhgjtUMZQLTGUOU2875-61-08 05:30:04 Test Item Value Reference Range Interpretation Comments Segs (test code = Segs) 75.0 45.0-75.0 [facility] HospitalYvvkndgGHVGSSCSXP5159-22-44 05:30:04 Test Item Value Reference Range Interpretation Comments Lymphocytes (test code = Lymphocytes) 14.3 20.0-40.0 [facility] HospitalRdzcpqdTDINCJNYXJ7261-50-62 05:30:04 Test Item Value Reference Range Interpretation Comments Stomatocyte (test code = Slight *ABN*(11/01/13 Stomatocyte) 12:30 AM) [facility] HospitalJsdbwmuMUVBJUFCUV6164-71-03 05:30:04 Test Item Value Reference Range Interpretation Comments Basophils (test code = 0.6 See_Comment [Aut omated message] The Basophils) system which ge nerated this result tra nsmitted reference range : <=1.0. The reference r matthieu was not used to int erpret this result as normal/abnormal . [facility] HospitalFibzewoQIWCSTGCVN5725-12-26 05:30:04 Test Item Value Reference Range Interpretation Comments Large Plt (test code = Slight *ABN*(11/01/13 Large Plt) 12:30 AM) [facility] HospitalLyvxuxpTQPILYVRGN3226-04-92 05:30:04 Test Item Value Reference Range Interpretation Comments Eosinophils # (test code 0.2 See_Comment [A utomated message] The = Eosinophils #) system whic h generated this result tra nsmitted reference range : <=0.5. The reference r matthieu was not used to int erpret this result as normal/abnormal . [facility] HospitalGolvfduEVPECRQHLK8568-30-23 05:30:04 Test Item Value Reference Range Interpretation Comments Basophils # (test code 0.1 See_Comment [Aut omated message] The = Basophils #) system which generated this result tra nsmitted reference range : <=0.2. The reference r matthieu was not used to int erpret this result as normal/abnormal . [facility] HospitalQioyzecGMNXPVWOVC8885-47-29 05:30:04 Test Item Value Reference Range Interpretation Comments Segs-Bands # (test code = Segs-Bands #) 7.6 1.5-8.1 [facility] HospitalSqnmonzSBEJLIGSZF5391-38-37 05:30:04 Test Item Value Reference Range Interpretation Comments Lymphocytes # (test code = Lymphocytes 1.4 1.0-5.5 #) [facility] HospitalWpdvagaOFDVNLQTSS0769-08-40 05:30:04 Test Item Value Reference Range Interpretation Comments Monocytes # (test code 0.9 See_Comment [Aut omated message] The = Monocytes #) system which generated this result tra nsmitted reference range : <=0.8. The reference r matthieu was not used to int erpret this result as normal/abnormal . [facility] HospitalSexbvfeKVYFFEWHXT3655-42-82 05:30:04 Test Item Value Reference Range Interpretation Comments Monocytes (test code = Monocytes) 8.4 2.0-12.0 [facility] HospitalGrzpxdiTRIDDOWVQG2145-34-41 05:30:04 Test Item Value Reference Range Interpretation Comments Eosinophils (test code = 1.7 See_Comment [A utomated message] The Eosinophils) system which ge nerated this result tra nsmitted reference range : <=4.0. The reference r matthieu was not used to int erpret this result as normal/abnormal . [facility] IHGDU9231-93-35 16:00:00 Test Item Value Reference Range Interpretation Comments Occult Bld Stl (test Positive *ABN*(10/31/13 code = Occult Bld Stl) 11:00 AM) [facility]CHE[facility] YSMKS9396-58-15 15:50:57 Test Item Value Reference Range Interpretation Comments Lactic Acid Lvl (test code = Lactic 1.0 0.5-2.2 Acid Lvl) [facility]CARD[facility] EMRZXBY3957-39-67 13:11:50 Test Item Value Reference Range Interpretation Comments Total CK (test code = Total CK) 26 12-191 [facility] ONDLJAY6346-61-16 13:11:50 Test Item Value Reference Range Interpretation Comments Troponin-T (test code no gt See_Comment [Auto mated message] The = Troponin-T) system which g enerated this result transmit yanely reference range : <=0.100. The reference r matthieu was not used to interpr et this result as brielle l/abnormal. [facility] PXBIJDD7392-35-89 13:11:50 Test Item Value Reference Range Interpretation Comments Troponin-I (test code 0.02 See_Comment [Auto mated message] The = Troponin-I) system which g enerated this result transmit yanely reference range : <=0.40. The reference r matthieu was not used to interpr et this result as brielle l/abnormal. [facility] HospitaltagWALLET OBBZU4890-83-81 13:11:50 Test Item Value Reference Range Interpretation Comments B/C Ratio (test code = B/C Ratio) 36 6-25 [facility]2014-08-15 13:11:50 Test Item Value Reference Range Interpretation Comments Globulin (test code = Globulin) 3.8 2.0-4.0 [facility]2014-08-15 13:11:50 Test Item Value Reference Range Interpretation Comments A/G Ratio (test code = A/G Ratio) 0.8 0.7-1.6 [facility]2014-08-15 13:11:50 Test Item Value Reference Range Interpretation Comments Total Protein (test code = Total 6.8 6.4-8.4 Protein) [facility]2014-08-15 13:11:50 Test Item Value Reference Range Interpretation Comments Albumin Lvl (test code = Albumin Lvl) 3.0 3.5-5.0 [facility]2014-08-15 13:11:50 Test Item Value Reference Range Interpretation Comments Alk Phos (test code = Alk Phos) 159 39-136 [facility]2014-08-15 13:11:50 Test Item Value Reference Range Interpretation Comments ALT (test code = ALT) 75 See_Comment [Auto mated message] The system which ge nerated this result transmit yanely reference range : <=65. The reference range was not used to interpr et this result as brielle l/abnormal. [facility]2014-08-15 13:11:50 Test Item Value Reference Range Interpretation Comments AST (test code = AST) 19 See_Comment [Auto mated message] The system which ge nerated this result transmit yanely reference range : <=37. The reference range was not used to interpr et this result as brielle l/abnormal. [facility]2014-08-15 13:11:50 Test Item Value Reference Range Interpretation Comments Bili Total (test code = Bili Total) 0.2 0.2-1.3 [facility] HospitalPiwedtkTSQRTAIJIF5730-63-15 13:11:50 Test Item Value Reference Range Interpretation Comments INR (test code = INR) 0.98 0.85-1.17 [facility] HospitalLwxlzghPGPIPNDJYX8616-83-62 13:11:50 Test Item Value Reference Range Interpretation Comments PT (test code = PT) 12.9 s 12.0-14.7 [facility] HospitalSunajsdZSBGQHBNJP4515-18-76 13:11:50 Test Item Value Reference Range Interpretation Comments PTT (test code = PTT) 33.5 s 22.9-35.8 [facility] HospitalNcrewnvAESVYMAPAY9522-87-48 13:11:26 Test Item Value Reference Range Interpretation Comments Basophils # (test code 0.1 See_Comment [Aut omated message] The = Basophils #) system which generated this result tra nsmitted reference range : <=0.2. The reference r matthieu was not used to int erpret this result as normal/abnormal . [facility] HospitalOiwqiavQKIHBUWLFD4307-34-07 13:11:26 Test Item Value Reference Range Interpretation Comments Polychrom (test code = Slight (10/31/13 8:11 Polychrom) AM) [facility] HospitalZmrnfbnCOZNBQMUUH3172-07-14 13:11:26 Test Item Value Reference Range Interpretation Comments Anisocyte (test code = 1+ *ABN*(10/31/13 Anisocyte) 8:11 AM) [facility] HospitalXjcqcfgXESCYQRSRP0340-54-44 13:11:26 Test Item Value Reference Range Interpretation Comments Plt Morph (test code = Normal (10/31/13 8:11 Plt Morph) AM) [facility] HospitalVijzwfjVJQSUZRFZB2835-58-10 05:00:00 Test Item Value Reference Range Interpretation Comments Large Plt (test code = Slight *ABN*(10/31/13 Large Plt) 12:00 AM) [facility] HospitalCimzdyoXWAUSARCXI8995-75-67 05:00:00 Test Item Value Reference Range Interpretation Comments Neut Vac (test code = Slight *ABN*(10/31/13 Neut Vac) 12:00 AM) [facility] HospitalUtthrxiAKCUOOYVIU3479-56-21 05:00:00 Test Item Value Reference Range Interpretation Comments Basophils # (test code 0.1 See_Comment [Aut omated message] The = Basophils #) system which generated this result tra nsmitted reference range : <=0.2. The reference r matthieu was not used to int erpret this result as normal/abnormal . [facility] HospitalAezxbbbSLWBRWRQTS1905-41-89 05:00:00 Test Item Value Reference Range Interpretation Comments Polychrom (test code = Slight (10/31/13 12:00 Polychrom) AM) [facility] HospitalAqfjeymCHRFITZNEA9677-63-21 06:00:00 Test Item Value Reference Range Interpretation Comments Large Plt (test code = Slight *ABN*(10/30/13 Large Plt) 1:00 AM) [facility] HospitalUavqjfeBDOOHUDUCG0465-97-75 06:00:00 Test Item Value Reference Range Interpretation Comments Toxic Gran (test code Slight *ABN*(10/30/13 = Toxic Gran) 1:00 AM) [facility] HospitalFhkaerxWKXIEMJJDZ5331-99-41 06:00:00 Test Item Value Reference Range Interpretation Comments Elliptocyte (test code = Slight *ABN*(10/30/13 Elliptocyte) 1:00 AM) [facility] HospitalSzmkqjhOSYVUNSPTB3861-60-69 06:00:00 Test Item Value Reference Range Interpretation Comments Anisocyte (test code = 1+ *ABN*(10/30/13 Anisocyte) 1:00 AM) [facility] HospitalPisrkugPFENMDQUOL1396-32-82 05:42:00 Test Item Value Reference Range Interpretation Comments Anisocyte (test code = 1+ *ABN*(10/28/13 Anisocyte) 12:42 AM) [facility] HospitalHbnpvdyGBWSBAWTEL7140-05-83 05:42:00 Test Item Value Reference Range Interpretation Comments Metamyelocytes (test code 2.0 See_Comment [ Automated message] = Metamyelocytes) The system which generated this result transmitted ref erence range: <=1.0. T he reference range was not used to int erpret this result as normal/abnormal . [facility] HospitalWbbbqazCDTMUJNZTQ9583-69-80 05:42:00 Test Item Value Reference Range Interpretation Comments Atypical Lymphs (test code = Atypical 0.0 Lymphs) [facility] HospitalUfwgefjKZYOQUHXAP4126-28-74 05:42:00 Test Item Value Reference Range Interpretation Comments Myelocytes (test code = Myelocytes) 5.0 [facility] HospitalNpborzoWOLVEKTXPB2992-21-32 05:42:00 Test Item Value Reference Range Interpretation Comments Giant Plt (test code = Giant Plt) Occasional [facility] HospitalGyteamuPTGFWBVIKW9656-57-73 05:42:00 Test Item Value Reference Range Interpretation Comments Elliptocyte (test code = Slight *ABN*(10/28/13 Elliptocyte) 12:42 AM) [facility] HospitalCbaimpzEJELOBHSIG4914-18-35 05:42:00 Test Item Value Reference Range Interpretation Comments Bands (test code = 1.0 See_Comment [Automat ed message] The Bands) system which ge nerated this result transmit yanely reference range : <=11.0. The reference r matthieu was not used to interpr et this result as brielle l/abnormal. [facility] HospitalNrsngsjZDQIFRXIHQ8702-56-00 05:42:00 Test Item Value Reference Range Interpretation Comments INR (test code = INR) 1.04 0.85-1.17 [facility] HospitalEynwoewMPHWGXXJRY3763-34-77 05:42:00 Test Item Value Reference Range Interpretation Comments PT (test code = PT) 13.5 s 12.0-14.7 [facility] HospitalYhibbqhGZVOLDZRAW6669-48-50 05:42:00 Test Item Value Reference Range Interpretation Comments PTT (test code = PTT) 31.1 s 22.9-35.8 [facility] HospitalJopetziTMSLBDTGLH7413-61-42 21:02:03 Test Item Value Reference Range Interpretation Comments R-time (test code = R-time) 4.8 min 5.0-10.0 [facility] HospitalIvzyciaRZMIMCEJMQ2292-44-27 21:02:03 Test Item Value Reference Range Interpretation Comments Coag Index (test code 4.0 See_Comment [Auto mated message] The = Coag Index) system which g enerated this result transmit yanely reference range : <=3.0. The reference range was not used to interpr et this result as brielle l/abnormal. [id number] 21:02:03 Test Item Value Reference Range Interpretation Comments Ly30 (test code = 1.2 See_Comment [Automate d message] The Ly30) system which ge nerated this result transmit yanely reference range : <=7.5. The reference range was not used to interpr et this result as brielle l/abnormal. [facility]NnfvpvmQBCPRMUFNZ3620-02-61 21:02:03 Test Item Value Reference Range Interpretation Comments G-value (test code = G-value) 17.7 4.5-11.0 [facility]PsmfamlIZBECWQWHR9551-89-36 21:02:03 Test Item Value Reference Range Interpretation Comments TEG Data (test code = See Note 26(10/27/13 TEG Data) 4:02 PM) [facility] HospitalPuxociwQAAFQMQWYU3123-81-23 21:02:03 Test Item Value Reference Range Interpretation Comments Angle (test code = Angle) 75.6 degrees 53.0-72.0 [facility] HospitalStgdegxAYXWBFAJRC4193-75-17 21:02:03 Test Item Value Reference Range Interpretation Comments K-time (test code = K-time) 1.0 min 1.0-3.0 [facility] HospitalUkmtfuzQPSDHMYVNK2785-56-43 21:02:03 Test Item Value Reference Range Interpretation Comments Max Amp (test code = Max Amp) 77.9 mm 50.0-70.0 [facility] HospitalOwysrgiZCVFMFALAC3098-32-48 21:02:03 Test Item Value Reference Range Interpretation Comments TEG Interp (test Thrombelastograph results code = TEG show shortened value of R Interp) and increased values of both Angle Alpha and MA. These findings are suggestive of platelet and enzymatic hypercoagulation which may be seen in early phase of DIC. Monitor for DIC with DIC panel may be indicated. CPT:95494 [facility] HospitalHdpgbndLZNSRJERMO5920-56-19 14:08:15 Test Item Value Reference Range Interpretation Comments Vanco Lvl (test code = Vanco Lvl) 12.4 [facility] [employer] [id number] 21:00:00 Test Item Value Reference Range Interpretation Comments ABO/Rh (test code = ABO/Rh) O POS [facility] [employer] [id number] 21:00:00 Test Item Value Reference Range Interpretation Comments Antibody Scrn (test Negative (10/25/13 4:00 code = Antibody Scrn) PM) [facility] HospitalTppzheeCYLBQLDCBP9189-03-98 22:34:56 Test Item Value Reference Range Interpretation Comments Vanco Tr TND (test code = Vanco Tr TND) 1800 [facility] HospitalWdzsnltTUJKJIGXPN4259-47-09 22:34:56 Test Item Value Reference Range Interpretation Comments Vanco Tr (test code = Vanco Tr) 12.2 [facility] [employer] [id number] 15:08:01 Test Item Value Reference Range Interpretation Comments Bili Direct (test code 0.1 See_Comment [Aut omated message] The = Bili Direct) system which generated this result tra nsmitted reference range : <=0.3. The reference r matthieu was not used to int erpret this result as brielle l/abnormal. [facility] HospitalBastion Security Install[facility] [id number] 15:08:01 Test Item Value Reference Range Interpretation Comments Bili Total (test code = Bili Total) 0.4 0.2-1.3 [facility] HospitalB[facility] Install[facility] [id number] 15:08:01 Test Item Value Reference Range Interpretation Comments ALT (test code = ALT) 116 See_Comment [Auto mated message] The system which ge nerated this result transmit yanely reference range : <=65. The reference range was not used to interpr et this result as brielle l/abnormal. [facility] [id number] 15:08:01 Test Item Value Reference Range Interpretation Comments Albumin Lvl (test code = Albumin Lvl) 2.4 3.5-5.0 [facility] [id number] 15:08:01 Test Item Value Reference Range Interpretation Comments Alk Phos (test code = Alk Phos) 80 39-136 [facility] [id number] 15:08:01 Test Item Value Reference Range Interpretation Comments AST (test code = AST) 53 See_Comment [Auto mated message] The system which ge nerated this result transmit yanely reference range : <=37. The reference range was not used to interpr et this result as brielle l/abnormal. [facility] [id number] 15:08:01 Test Item Value Reference Range Interpretation Comments Globulin (test code = Globulin) 3.2 2.0-4.0 [facility] [id number] 15:08:01 Test Item Value Reference Range Interpretation Comments A/G Ratio (test code = A/G Ratio) 0.8 0.7-1.6 [facility] [id number] 15:08:01 Test Item Value Reference Range Interpretation Comments Bili Indirect (test 0.3 See_Comment [Automa yanely message] The code = Bili Indirect) system which generated this result tra nsmitted reference range : <=1.0. The reference r matthieu was not used to int erpret this result as normal/abnormal . [facility] [employer]CHE[employer] [id number] 15:08:01 Test Item Value Reference Range Interpretation Comments Total Protein (test code = Total 5.6 6.4-8.4 Protein) [facility] HospitalWpxdzcpZLHPXSTNOU8101-82-01 15:08:01 Test Item Value Reference Range Interpretation Comments Vanco Tr (test code = Vanco Tr) 30.1 [facility] DoiswrpBJSPEIWFCV8477-57-96 15:08:01 Test Item Value Reference Range Interpretation Comments Vanco Tr TND (test code = Vanco Tr TND) 0930 [facility] [employer] [id number] 01:47:00 Test Item Value Reference Range Interpretation Comments CK MB (test code = CK MB) 4.9 0.5-3.6 [facility] [employer]ueannCARDIAC [id number] 01:47:00 Test Item Value Reference Range Interpretation Comments CK MB Index (test 3.1 See_Comment [Automate d message] The code = CK MB Index) [facility] result transmit yanely reference range : <=2.5. The reference range was not used to interpr et this result as brielle l/abnormal. [facility] [employer] [id number] 01:47:00 Test Item Value Reference Range Interpretation Comments Total CK (test code = Total CK) 156 12-191 [facility] [employer]CARDI[employer] [id number] 01:47:00 Test Item Value Reference Range Interpretation Comments Troponin-T (test code 0.290 See_Comment [Auto mated message] The = Troponin-T) system which g enerated this result transmit yanely reference range : <=0.100. The reference r matthieu was not used to interpr et this result as brielle l/abnormal. [facility] TqxxgqvHKRRKPYGJ7286-51-95 01:47:00 Test Item Value Reference Range Interpretation Comments Myoglobin (test code = Myoglobin) 56 25-72 [facility] [id number] 18:50:03 Test Item Value Reference Range Interpretation Comments LDL (Calculated) (test code = LDL 147 (Calculated)) [facility] HospitalVmhluohTRBEHW8261-24-19 18:50:03 Test Item Value Reference Range Interpretation Comments VLDL (test code = VLDL) 31 [facility] HospitalIgnmdzdOQLVVB1704-28-96 18:50:03 Test Item Value Reference Range Interpretation Comments Trig (test code = Trig) 153 [facility] HospitalVetxwuoAZERUX4379-55-77 18:50:03 Test Item Value Reference Range Interpretation Comments HDL (test code = HDL) 24 [facility] Ho[id number] 18:50:03 Test Item Value Reference Range Interpretation Comments Chol (test code = Chol) 202 [facility] HospitalGfrhkupIJZZGT3236-02-97 18:50:03 Test Item Value Reference Range Interpretation Comments CHD Risk (test code = CHD Risk) 8.42 4.00-7.30 [facility] Hospit[id number] 14:38:19 Test Item Value Reference Range Interpretation Comments Vanco Tr TND (test code = Vanco Tr TND) 0230 [facility] Hos[id number] 14:38:19 Test Item Value Reference Range Interpretation Comments Vanco Tr (test code = Vanco Tr) 14.9 [facility] [employer] [id number] 13:20:54 Test Item Value Reference Range Interpretation Comments Total CK (test code = Total CK) 259 12-191 [facility] [id number] 13:20:54 Test Item Value Reference Range Interpretation Comments CK MB Index (test 5.0 See_Comment [Automate d message] The code = CK MB Index) system w [facility] generated this result transmit yanely reference range : <=2.5. The reference range was not used to interpr et this result as brielle l/abnormal. [facility] HospitalannCARDIAC [id number] 13:20:54 Test Item Value Reference Range Interpretation Comments CK MB (test code = CK MB) 12.9 0.5-3.6 [facility] HospitalannCARDIAC [id number] 13:20:28 Test Item Value Reference Range Interpretation Comments Troponin-T (test code 0.417 See_Comment [Auto mated message] The = Troponin-T) system which g enerated this result transmit yanely reference range : <=0.100. The reference r matthieu was not used to interpr et this result as brielle l/abnormal. [facility] [employer] [id number] 13:20:22 Test Item Value Reference Range Interpretation Comments Troponin-I (test code 5.43 See_Comment [Auto mated message] The = Troponin-I) system which g enerated this result transmit yanely reference range : <=0.40. The reference r matthieu was not used to interpr et this result as brielle l/abnormal. [facility] [employer] [id number] 07:11:43 Test Item Value Reference Range Interpretation Comments CK MB (test code = CK MB) 20.7 0.5-3.6 [facility] HospitalViv[facility] Medical2014-08-07 07:11:43 Test Item Value Reference Range Interpretation Comments CK MB Index (test 5.8 See_Comment [Automate d message] The code = CK MB Index) system w [facility] generated this result transmit yanely reference range : <=2.5. The reference range was not used to interpr et this result as brielle l/abnormal. [facility] Hospital[facility]2014-08-07 00:47:00 Test Item Value Reference Range Interpretation Comments Troponin-I (test code 9.41 See_Comment [Auto mated message] The = Troponin-I) system which g enerated this result transmit yanely reference range : <=0.40. The reference r matthieu was not used to interpr et this result as brielle l/abnormal. [employer] [id number] 21:45:55 Test Item Value Reference Range Interpretation Comments Lactic Acid Lvl (test code = Lactic 0.6 0.5-2.2 Acid Lvl) [facility] [employer] BANK [id number] 15:43:00 Test Item Value Reference Range Interpretation Comments RBC product (test code Product available = RBC product) (10/22/13 10:43 AM) [facility] [employer] [id number] 14:40:57 Test Item Value Reference Range Interpretation Comments A/G Ratio (test code = A/G Ratio) 0.8 0.7-1.6 [facility] [employer] [id number] 14:40:57 Test Item Value Reference Range Interpretation Comments Globulin (test code = Globulin) 3.0 2.0-4.0 [facility]2014-08-06 14:40:57 Test Item Value Reference Range Interpretation Comments B/C Ratio (test code = B/C Ratio) 43 6-25 [facility]2014-08-06 14:40:57 Test Item Value Reference Range Interpretation Comments Total Protein (test code = Total 5.4 6.4-8.4 Protein) [id number] 14:40:57 Test Item Value Reference Range Interpretation Comments Alk Phos (test code = Alk Phos) 96 39-136 [place] 454204-08-06 14:40:57 Test Item Value Reference Range Interpretation Comments AST (test code = AST) 195 See_Comment [Auto mated message] The system which ge nerated this result transmit yanely reference range : <=37. The reference range was not used to interpr et this result as brielle l/abnormal. [facility]2014-08-06 14:40:57 Test Item Value Reference Range Interpretation Comments Bili Total (test code = Bili Total) 0.8 0.2-1.3 [facility]2014-08-06 14:40:57 Test Item Value Reference Range Interpretation Comments ALT (test code = ALT) 164 See_Comment [Auto mated message] The system which ge nerated this result transmit yanely reference range : <=65. The reference range was not used to interpr et this result as brielle l/abnormal. [facility]2014-08-06 14:40:57 Test Item Value Reference Range Interpretation Comments Albumin Lvl (test code = Albumin Lvl) 2.4 3.5-5.0 [facility]2014-08-06 14:40:27 Test Item Value Reference Range Interpretation Comments Bili Direct (test code 0.4 See_Comment [Aut omated message] The = Bili Direct) system which generated this result tra nsmitted reference range : <=0.3. The reference r matthieu was not used to int erpret this result as brielle l/abnormal. [place] [id number] 14:40:27 Test Item Value Reference Range Interpretation Comments Bili Indirect (test 0.4 See_Comment [Automa yanely message] The code = Bili Indirect) system which generated this result tra nsmitted reference range : <=1.0. The reference r matthieu was not used to int erpret this result as normal/abnormal . [facility] [id number] 11:43:00 Test Item Value Reference Range Interpretation Comments Lactic Acid Lvl (test code = Lactic 1.7 0.5-2.2 Acid Lvl) [facility] HospitalKroltlrHQFNQLDGMU8229-01-18 11:43:00 Test Item Value Reference Range Interpretation Comments Bands (test code = 1.0 See_Comment [Automat ed message] The Bands) system which ge nerated this result transmit yanely reference range : <=11.0. The reference r matthieu was not used to interpr et this result as brielle l/abnormal. [facility] Cent[id number] 11:43:00 Test Item Value Reference Range Interpretation Comments Plt Morph (test code = Normal (10/22/13 6:43 AM) Plt Morph) [facility] H[id number] 11:43:00 Test Item Value Reference Range Interpretation Comments Atypical Lymphs (test code = Atypical 0.0 Lymphs) [facility] CenterEtyizolDNVXLEOBGM5237-24-21 11:43:00 Test Item Value Reference Range Interpretation Comments Metamyelocytes (test code 6.0 See_Comment [ Automated message] = Metamyelocytes) The system which generated this result transmitted ref erence range: <=1.0. T he reference range was not used to int erpret this result as normal/abnormal . [facility] HospitalNusnmgxUJKVVEVEL5426-66-62 11:43:00 Test Item Value Reference Range Interpretation Comments Myoglobin (test code = Myoglobin) 328 25-72 [facility] [id number] 07:58:00 Test Item Value Reference Range Interpretation Comments FFP product (test code Product available = FFP product) (10/22/13 2:58 AM) [facility] [place] [place] BANK [id number] 07:56:00 Test Item Value Reference Range Interpretation Comments Platelet product (test Product available code = Platelet (10/22/13 2:56 AM) product) [facility] [place] [place] BANK [id number] 07:47:00 Test Item Value Reference Range Interpretation Comments RBC product (test code Product available = RBC product) (10/22/13 2:47 AM) [facility] HospitalVlsnsnrTBZNVJUKTR2453-48-58 07:45:00 Test Item Value Reference Range Interpretation Comments Metamyelocytes (test code 4.0 See_Comment [ Automated message] = Metamyelocytes) The system which generated this result transmitted ref erence range: <=1.0. T he reference range was not used to int erpret this result as normal/abnormal . [facility] Hos[id number] 07:45:00 Test Item Value Reference Range Interpretation Comments Atypical Lymphs (test code = Atypical 0.0 Lymphs) [facility] HospitalRebicqvAQIGJSHQTT5303-34-98 07:45:00 Test Item Value Reference Range Interpretation Comments Bands (test code = 8.0 See_Comment [Automat ed message] The Bands) system which ge nerated this result transmit yanely reference range : <=11.0. The reference r matthieu was not used to interpr et this result as brielle l/abnormal. [facility] HospitalLqehvboGFCWUZGKJC3919-08-97 07:45:00 Test Item Value Reference Range Interpretation Comments Max Amp (test code = Max Amp) 74.0 mm 50.0-70.0 [facility] HospitalCesneviBYJNPBIIED7266-13-61 07:45:00 Test Item Value Reference Range Interpretation Comments G-value (test code = G-value) 14.2 4.5-11.0 [facility] HospitalUvrsadbEYYMMETWHJ8753-20-57 07:45:00 Test Item Value Reference Range Interpretation Comments Ly30 (test code = 1.4 See_Comment [Automate d message] The Ly30) system which ge nerated this result transmit yanely reference range : <=7.5. The reference range was not used to interpr et this result as brielle l/abnormal. [facility] HospitalWofyxjqMRSZKMHODQ0071-06-51 07:45:00 Test Item Value Reference Range Interpretation Comments Coag Index (test code 4.9 See_Comment [Auto mated message] The = Coag Index) system which g enerated this result transmit yanely reference range : <=3.0. The reference range was not used to interpr et this result as brielle l/abnormal. [facility] HospitalLezcsxsNTQTBFYNKU9888-58-16 07:45:00 Test Item Value Reference Range Interpretation Comments TEG Interp (test Thrombelastograph results code = TEG show shortened value of R Interp) and increased values of both Angle Alpha and MA. These findings are suggestive of platelet and enzymatic hypercoagulation which may be seen in early phase of DIC. Monitor for DIC with DIC panel may be indicated. CPT:42412 [facility] HospitalDwkoqdjPQLTPYCUZH5792-56-05 07:45:00 Test Item Value Reference Range Interpretation Comments R-time (test code = R-time) 3.2 min 5.0-10.0 [facility] HospitalWmqrglbQQMFGPTPGR3353-52-17 07:45:00 Test Item Value Reference Range Interpretation Comments K-time (test code = K-time) 0.8 min 1.0-3.0 [facility] HospitalHzkalvnXCQZKGIWNS0278-33-81 07:45:00 Test Item Value Reference Range Interpretation Comments Angle (test code = Angle) 79.5 degrees 53.0-72.0 [facility] HospitalFkrxaqrIQQHJFKBKK9059-77-84 07:45:00 Test Item Value Reference Range Interpretation Comments TEG Data (test code = See Note 27(10/22/13 2:45 TEG Data) AM) [facility] [id number] 07:32:00 Test Item Value Reference Range Interpretation Comments Platelet product (test Product available code = Platelet (10/22/13 2:32 AM) product) [facility] [id number] 06:56:00 Test Item Value Reference Range Interpretation Comments FFP product (test code Product available = FFP product) (10/22/13 1:56 AM) [facility] [id number] 06:31:00 Test Item Value Reference Range Interpretation Comments RBC product (test code Product available = RBC product) (10/22/13 1:31 AM) [facility] Ho[id number] 05:37:07 Test Item Value Reference Range Interpretation Comments Myoglobin (test code = Myoglobin) 993 25-72 [facility] CenterRpyyaakFPBDGOEPHM3559-95-80 05:37:01 Test Item Value Reference Range Interpretation Comments Hypochrom (test code = Slight (10/22/13 12:37 Hypochrom) AM) [facility] CenterTisrwjcKDKZZIAWPX0416-62-36 05:37:01 Test Item Value Reference Range Interpretation Comments Microcyte (test code = 1+ *ABN*(10/22/13 Microcyte) 12:37 AM) [facility] HospitalAbihsyeAFXQHLXRGQ7628-28-68 05:37:01 Test Item Value Reference Range Interpretation Comments Macrocyte (test code = 1+ *ABN*(10/22/13 Macrocyte) 12:37 AM) [facility] HospitalZdzfdocRHPOWUQXTR2044-91-18 05:37:01 Test Item Value Reference Range Interpretation Comments NRBC (test code = NRBC) 1 [facility] HospitalNtbtigwASHHSGJLMW0808-04-36 05:37:01 Test Item Value Reference Range Interpretation Comments Myelocytes (test code = Myelocytes) 3.0 [facility] HospitalArcivr ULXGVAO1735-69-00 05:30:00 Test Item Value Reference Range Interpretation Comments Antibody Scrn (test Negative 1(10/22/13 code = Antibody Scrn) 12:30 AM) [facility] HospitalArc[facility] [id number] 05:30:00 Test Item Value Reference Range Interpretation Comments ABO/Rh (test code = ABO/Rh) O POS [facility] HospitalYik YakJVWHNE7629-47-38 03:40:53 Test Item Value Reference Range Interpretation Comments Protein CSF (test code = Protein CSF) 54 15-45 [facility] HospitalYik YakAVJXYZ4108-51-86 03:40:53 Test Item Value Reference Range Interpretation Comments Glucose CSF (test code = Glucose CSF) 85 45-80 [facility] HospitalYik YakJVEPMV5541-92-34 03:40:48 Test Item Value Reference Range Interpretation Comments RBC CSF (test code = 80 See_Comment [Autom ated message] The RBC CSF) system which ge nerated this result transmit yanely reference range : <=03. The reference range was not used to interpr et this result as brielle l/abnormal. [facility] [id number] 03:40:48 Test Item Value Reference Range Interpretation Comments WBC CSF (test code = 1 See_Comment [Autom ated message] The WBC CSF) system which ge nerated this result transmit yanely reference range : <=53. The reference range was not used to interpr et this result as brielle l/abnormal. [facility] HospitalYik YakSWKMAV9505-17-02 03:40:48 Test Item Value Reference Range Interpretation Comments Tube Num CSF (test xxxxxxx (10/21/13 10:40 code = Tube Num CSF) PM) [facility] [id number] 03:40:48 Test Item Value Reference Range Interpretation Comments Color CSF (test code Colorless (10/21/13 10:40 = Color CSF) PM) [facility] EHGKIN1406-17-24 03:40:48 Test Item Value Reference Range Interpretation Comments Clarity CSF (test code Slight *ABN*(10/21/13 = Clarity CSF) 10:40 PM) [facility] [id number] 03:40:48 Test Item Value Reference Range Interpretation Comments Supernat CSF (test Colorless (10/21/13 10:40 code = Supernat CSF) PM) [facility] AND [id number] 01:35:51 Test Item Value Reference Range Interpretation Comments UA Urobilinogen (test code = UA <=1.0 mg/dL 0.1-1.0 Urobilinogen) [facility] [id number] 01:35:51 Test Item Value Reference Range Interpretation Comments UA Protein (test code = UA Protein) 30 mg/dL [facility] AND [id number] 01:35:51 Test Item Value Reference Range Interpretation Comments UA pH (test code = UA pH) 5.0 5.0-8.0 [facility] AND [id number] 01:35:51 Test Item Value Reference Range Interpretation Comments UA Spec Grav (test code = UA Spec Grav) 1.021 [facility] AND [id number] 01:35:51 Test Item Value Reference Range Interpretation Comments UA Turbidity (test code Slight *ABN*(10/21/13 = UA Turbidity) 8:35 PM) [facility] AND [id number] 01:35:51 Test Item Value Reference Range Interpretation Comments UA Color (test code = Yellow *NA*(10/21/13 8:35 UA Color) PM) [facility] AND [id number] 01:35:51 Test Item Value Reference Range Interpretation Comments UA Bacteria (test code = UA Occasional /HPF Bacteria) [facility] [id number] 01:35:51 Test Item Value Reference Range Interpretation Comments UA WBC (test code = 4 See_Comment [Automa yanely message] The UA WBC) system which ge nerated this result transmit yanely reference range : <=5. The reference range was not used to interpr et this result as brielle l/abnormal. [facility] AND [id number] 01:35:51 Test Item Value Reference Range Interpretation Comments UA Sq Epi (test code = UA Sq Epi) Many /LPF [facility] [facility] AND [id number] 01:35:51 Test Item Value Reference Range Interpretation Comments UA Mucus (test code = UA Mucus) Few /LPF [facility] AND [id number] 01:35:51 Test Item Value Reference Range Interpretation Comments UA Bili (test code = Negative *NA*(10/21/13 UA Bili) 8:35 PM) [facility] AND [id number] 01:35:51 Test Item Value Reference Range Interpretation Comments UA Ketones (test code = UA Negative mg/dL Ketones) [facility] AND [id number] 01:35:51 Test Item Value Reference Range Interpretation Comments UA Glucose (test code = UA Negative mg/dL Glucose) [facility] AND [id number] 01:35:51 Test Item Value Reference Range Interpretation Comments UA Leuk Est (test code Trace *ABN*(10/21/13 8:35 = UA Leuk Est) PM) [facility] AND [id number] 01:35:51 Test Item Value Reference Range Interpretation Comments UA Nitrite (test code Negative (10/21/13 8:35 = UA Nitrite) PM) [facility] AND [id number] 01:35:51 Test Item Value Reference Range Interpretation Comments UA Blood (test code = Negative (10/21/13 8:35 UA Blood) PM) [facility] AND [id number] 01:35:51 Test Item Value Reference Range Interpretation Comments UA Hyal Cast (test 31 See_Comment [Automat ed message] The code = UA Hyal Cast) system which generated this result transmit yanely reference range : <=2. The reference range was not used to interpr et this result as brielle l/abnormal. [facility] AND [id number] 01:35:51 Test Item Value Reference Range Interpretation Comments UA Renal Epi (test code = UA Renal Epi) 1 [facility] AND [id number] 01:35:51 Test Item Value Reference Range Interpretation Comments UA Sperm (test code = UA Occasional /HPF Sperm) [id number] 00:07:00 Test Item Value Reference Range Interpretation Comments RBC Morph (test code = Normal (10/21/13 7:07 PM) RBC Morph) [facility] [id number] 21:38:32 Test Item Value Reference Range Interpretation Comments C difficile DNA (test Negative 28(10/21/13 code = C difficile DNA) 4:38 PM) [facility]2014-08-04 21:12:00 Test Item Value Reference Range Interpretation Comments Lactic Acid CSF (test code = Lactic 3.2 0.6-2.2 Acid CSF) [facility]2014-08-04 21:12:00 Test Item Value Reference Range Interpretation Comments Protein CSF (test code = Protein CSF) 34 15-45 [facility]2014-08-04 21:12:00 Test Item Value Reference Range Interpretation Comments Glucose CSF (test code = Glucose CSF) 93 45-80 [facility]2014-08-04 21:12:00 Test Item Value Reference Range Interpretation Comments Comment CSF (test Differential not code = Comment CSF) performed on WBC count of less than 5. [facility]2014-08-04 21:12:00 Test Item Value Reference Range Interpretation Comments Supernat CSF (test Colorless (10/20/13 4:12 code = Supernat CSF) PM) [facility]2014-08-04 21:12:00 Test Item Value Reference Range Interpretation Comments WBC CSF (test code = 1 See_Comment [Autom ated message] The WBC CSF) system which ge nerated this result transmit yanely reference range : <=53. The reference range was not used to interpr et this result as brielle l/abnormal. [facility]2014-08-04 21:12:00 Test Item Value Reference Range Interpretation Comments RBC CSF (test code = 67 See_Comment [Autom ated message] The RBC CSF) system which ge nerated this result transmit yanely reference range : <=03. The reference range was not used to interpr et this result as brielle l/abnormal. [facility]2014-08-04 21:12:00 Test Item Value Reference Range Interpretation Comments Tube Num CSF (test xxxxxxx (10/20/13 4:12 PM) code = Tube Num CSF) [facility]2014-08-04 21:12:00 Test Item Value Reference Range Interpretation Comments Clarity CSF (test code = Clear (10/20/13 4:12 Clarity CSF) PM) [facility] [id number] 21:12:00 Test Item Value Reference Range Interpretation Comments Color CSF (test code Colorless (10/20/13 4:12 = Color CSF) PM) [id number] 21:12:00 Test Item Value Reference Range Interpretation Comments IgG Lvl CSF (test code = IgG Lvl CSF) 4.1 2.0-4.0 [facility] H[id number] 21:12:00 Test Item Value Reference Range Interpretation Comments Alb (CPE) (test code = Alb (CPE)) 2600.0 3400.0-5000.0 [facility] HospitalZpjdmeiVXTMYDPFMO0338-94-41 21:12:00 Test Item Value Reference Range Interpretation Comments IgG Index (test code = IgG Index) 0.6 0.3-0.7 [facility] HospitalSsdcpqnJXMGXZTNGY1528-87-78 21:12:00 Test Item Value Reference Range Interpretation Comments IgG (CPE) (test code = IgG (CPE)) 8616 660-4035 [facility] Hospit[id number] 21:12:00 Test Item Value Reference Range Interpretation Comments Alb CSF (CPE) (test code = Alb CSF 16.9 14.0-25.0 (CPE)) [facility] Hos[id number] 21:12:00 Test Item Value Reference Range Interpretation Comments PE Interp CSF CSF protein electrophoresis (test code = PE did not reveal evidence of Interp CSF) an oligoclonal process in the INDUSTRIAL PARAMEDIC. The CSF IgG index is within the reference range indicating that there is no elevation in intracerebral IgG synthesis. There is also no evidence of increased permeability of the blood brain barrier based on the CSF/serum albumin ratio. The electronic medical record has been reviewed for relevant history. I have personally reviewed the test results and concur with the resident's interpretation. CPT: 38634-QR [facility] H[id number] 21:12:00 Test Item Value Reference Range Interpretation Comments Description CSF (test The gel demonstrates code = Description appropriate resolution CSF) of the main protein bands. The gamma region shows continuous distribution of proteins both in the CSF and in the serum. No oligoclonal bands are detected. [facility] AND [id number] 17:42:30 Test Item Value Reference Range Interpretation Comments UA Urobilinogen (test code = UA <=1.0 mg/dL 0.1-1.0 Urobilinogen) [facility] AND [id number] 17:42:30 Test Item Value Reference Range Interpretation Comments UA RBC (test code = 7 See_Comment [Automa yanely message] The UA RBC) system which ge nerated this result transmit yanely reference range : <=2. The reference range was not used to interpr et this result as brielle l/abnormal. [facility] AND [id number] 17:42:30 Test Item Value Reference Range Interpretation Comments UA Mucus (test code = UA Mucus) Few /LPF [facility] AND [id number] 17:42:30 Test Item Value Reference Range Interpretation Comments UA Amorph Danyelle (test code = UA Many /HPF Amorph Daynelle) [facility] AND [id number] 17:42:30 Test Item Value Reference Range Interpretation Comments UA WBC (test code = 1 See_Comment [Automa yanely message] The UA WBC) system which ge nerated this result transmit yanely reference range : <=5. The reference range was not used to interpr et this result as brielle l/abnormal. [facility] AND [id number] 17:42:30 Test Item Value Reference Range Interpretation Comments UA Leuk Est (test Negative (10/19/13 12:42 code = UA Leuk Est) PM) [facility] AND [id number] 17:42:30 Test Item Value Reference Range Interpretation Comments UA Nitrite (test code Negative (10/19/13 12:42 = UA Nitrite) PM) [facility] AND [id number] 17:42:30 Test Item Value Reference Range Interpretation Comments UA Blood (test code = Negative (10/19/13 12:42 UA Blood) PM) [facility] AND [id number] 17:42:30 Test Item Value Reference Range Interpretation Comments UA Glucose (test code = UA Negative mg/dL Glucose) [facility] AND [id number] 17:42:30 Test Item Value Reference Range Interpretation Comments UA Ketones (test code = UA Negative mg/dL Ketones) [facility] AND [id number] 17:42:30 Test Item Value Reference Range Interpretation Comments UA pH (test code = UA pH) 7.5 5.0-8.0 [facility] AND [id number] 17:42:30 Test Item Value Reference Range Interpretation Comments UA Bili (test code = Negative *NA*(10/19/13 UA Bili) 12:42 PM) [facility] AND [id number] 17:42:30 Test Item Value Reference Range Interpretation Comments UA Protein (test code = UA Protein) 20 mg/dL [facility] AND [id number] 17:42:30 Test Item Value Reference Range Interpretation Comments UA Sq Epi (test code = UA Sq Epi) None Seen [facility] AND [id number] 17:42:30 Test Item Value Reference Range Interpretation Comments UA Spec Grav (test code = UA Spec Grav) 1.016 [facility] AND [id number] 17:42:30 Test Item Value Reference Range Interpretation Comments UA Turbidity (test code Marked *ABN*(10/19/13 = UA Turbidity) 12:42 PM) [facility] AND [id number] 17:42:30 Test Item Value Reference Range Interpretation Comments UA Color (test code = Yellow *NA*(10/19/13 UA Color) 12:42 PM) [facility]2014-08-03 05:00:09 Test Item Value Reference Range Interpretation Comments Bili Direct (test code 0.1 See_Comment [Aut omated message] The = Bili Direct) system which generated this result tra nsmitted reference range : <=0.3. The reference r matthieu was not used to int erpret this result as brielle l/abnormal. [facility]tag[facility]ALLET [id number] 05:00:09 Test Item Value Reference Range Interpretation Comments Bili Indirect (test 0.2 See_Comment [Automa yanely message] The code = Bili Indirect) system which generated this result tra nsmitted reference range : <=1.0. The reference r matthieu was not used to int erpret this result as normal/abnormal . [facility]tag[facility]ALLET [id number] 05:00:00 Test Item Value Reference Range Interpretation Comments Osmolality (test code = Osmolality) 311 280-300 [id number] 02:45:56 Test Item Value Reference Range Interpretation Comments Macrocyte (test code = 1+ *ABN*(10/16/13 Macrocyte) 9:45 PM) [facility] Hospit[id number] 02:45:56 Test Item Value Reference Range Interpretation Comments Smudge (test code = Slight (10/16/13 9:45 Smudge) PM) [facility] HospitalEslrxcsWFWVQYRGXV6226-26-19 02:45:56 Test Item Value Reference Range Interpretation Comments Myelocytes (test code = Myelocytes) 2.0 [facility] Hospit[id number] 14:20:00 Test Item Value Reference Range Interpretation Comments Smudge (test code = Smudge) [facility]asional [facility] [id number] 09:30:00 Test Item Value Reference Range Interpretation Comments Antibody Scrn (test Negative (10/16/13 4:30 code = Antibody Scrn) AM) [facility] [id number] 09:30:00 Test Item Value Reference Range Interpretation Comments ABO/Rh (test code = ABO/Rh) O POS [facility] Hospit[id number] 04:18:00 Test Item Value Reference Range Interpretation Comments Macrocyte (test code = 1+ *ABN*(10/15/13 Macrocyte) 11:18 PM) [facility] HospitalAclvltrLXWDNRAGBM7122-60-01 04:18:00 Test Item Value Reference Range Interpretation Comments Smudge (test code = Slight (10/15/13 11:18 Smudge) PM) [facility] Ho[id number] 04:18:00 Test Item Value Reference Range Interpretation Comments NRBC (test code = NRBC) 1 [facility] Hospit[id number] 23:16:50 Test Item Value Reference Range Interpretation Comments Tot Cell Ct (test code = Tot Cell Ct) 100 1 [facility] [id number] 19:22:12 Test Item Value Reference Range Interpretation Comments Tot Cell Ct (test code = Tot Cell Ct) 100 1 [facility] AND [id number] 05:47:00 Test Item Value Reference Range Interpretation Comments UA Amorph Danyelle (test code = Occasional /HPF UA Amorph Danyelle) [facility] AND [id number] 05:47:00 Test Item Value Reference Range Interpretation Comments Micro? (test code = Performed *NA*(10/15/13 Micro?) 12:47 AM) [facility] H[id number] 15:02:00 Test Item Value Reference Range Interpretation Comments NRBC (test code = NRBC) 1 [facility]2014-07-27 20:07:00 Test Item Value Reference Range Interpretation Comments Supernat CSF (test code Xanthoch = Supernat CSF) 19*ABN*(10/12/13 3:07 PM) [facility]2014-07-27 20:07:00 Test Item Value Reference Range Interpretation Comments Clarity CSF (test code = Clear (10/12/13 3:07 Clarity CSF) PM) [facility]2014-07-27 20:07:00 Test Item Value Reference Range Interpretation Comments WBC CSF (test code = 1 See_Comment [Autom ated message] The WBC CSF) system which ge nerated this result transmit yanely reference range : <=53. The reference range was not used to interpr et this result as brielle l/abnormal. [facility]2014-07-27 20:07:00 Test Item Value Reference Range Interpretation Comments RBC CSF (test code = 21 See_Comment [Autom ated message] The RBC CSF) system which ge nerated this result transmit yanely reference range : <=03. The reference range was not used to interpr et this result as brielle l/abnormal. [facility]2014-07-27 20:07:00 Test Item Value Reference Range Interpretation Comments Tube Num CSF (test See Note 18(10/12/13 code = Tube Num CSF) 3:07 PM) [facility]2014-07-27 20:07:00 Test Item Value Reference Range Interpretation Comments Color CSF (test code Xanthoch *ABN*(10/12/13 = Color CSF) 3:07 PM) [facility]2014-07-27 20:07:00 Test Item Value Reference Range Interpretation Comments Protein CSF (test code = Protein CSF) 57 15-45 [facility] [id number] 20:07:00 Test Item Value Reference Range Interpretation Comments Glucose CSF (test code = Glucose CSF) 88 45-80 [facility] AND [id number] 14:55:30 Test Item Value Reference Range Interpretation Comments UA RBC (test code = 2 See_Comment [Automa yanely message] The UA RBC) system which ge nerated this result transmit yanely reference range : <=2. The reference range was not used to interpr et this result as brielle l/abnormal. [facility] Ho[id number] 06:33:00 Test Item Value Reference Range Interpretation Comments Trig (test code = Trig) 501 [facility] [id number] 01:35:00 Test Item Value Reference Range Interpretation Comments Osmolality (test code = Osmolality) 328 280-300 [facility] [id number] 19:18:00 Test Item Value Reference Range Interpretation Comments Osmolality (test code = Osmolality) 319 280-300 [facility] [id number] 07:08:56 Test Item Value Reference Range Interpretation Comments B/C Ratio (test code = B/C Ratio) 22 6-25 [facility] HospitalEogltutESGBRDASFR2858-11-30 22:11:00 Test Item Value Reference Range Interpretation Comments Microcyte (test code = 1+ *ABN*(10/08/13 Microcyte) 5:11 PM) [facility] HospitalCHEM [id number] 16:27:00 Test Item Value Reference Range Interpretation Comments Ammonia (test code = Ammonia) 22.0 [facility] Cent[id number] 03:25:00 Test Item Value Reference Range Interpretation Comments Microcyte (test code = 1+ *ABN*(10/07/13 Microcyte) 10:25 PM) [facility] HospitalBODY [id number] 17:00:00 Test Item Value Reference Range Interpretation Comments Comment CSF (test Differential not code = Comment CSF) performed on WBC count of less than 5. [facility] AND [id number] 14:50:00 Test Item Value Reference Range Interpretation Comments UA Hyal Cast (test 4 See_Comment [Automat ed message] The code = UA Hyal Cast) system which generated this result transmit yanely reference range : <=2. The reference range was not used to interpr et this result as brielle l/abnormal. [facility] AND [id number] 14:50:00 Test Item Value Reference Range Interpretation Comments UA Bacteria (test code = UA Occasional /HPF Bacteria) [facility] [id number] 14:50:00 Test Item Value Reference Range Interpretation Comments U Creatinine (test code = U Creatinine) 157.8 [facility] [id number] 14:50:00 Test Item Value Reference Range Interpretation Comments U Sodium (test code = U Sodium) 55 [facility] HospitalVxudsfrMBVNBOYYYI0135-14-05 13:11:00 Test Item Value Reference Range Interpretation Comments Giant Plt (test code = Slight *ABN*(10/07/13 Giant Plt) 8:11 AM) [facility]CHE[facility] [id number] 07:20:36 Test Item Value Reference Range Interpretation Comments Amylase Lvl (test code = Amylase Lvl) 67 25-115 [facility] [id number] 07:20:36 Test Item Value Reference Range Interpretation Comments Lipase Lvl (test code = Lipase Lvl) 177 73-393 [facility] CenterFunsiadMKMHYBVBLK4801-15-90 01:46:00 Test Item Value Reference Range Interpretation Comments Giant Plt (test code = Slight *ABN*(10/06/13 Giant Plt) 8:46 PM) [facility] HospitalEectznyYFVPLBXZWV9908-13-30 01:46:00 Test Item Value Reference Range Interpretation Comments RBC Morph (test code = Normal (10/06/13 8:46 RBC Morph) PM) [facility] [id number] 18:43:29 Test Item Value Reference Range Interpretation Comments Comment CSF (test Differential not code = Comment CSF) performed on WBC count of less than 5. [facility] [id number] 18:43:29 Test Item Value Reference Range Interpretation Comments Lactic Acid CSF (test code = Lactic 2.7 0.6-2.2 Acid CSF) [facility] Hospit[id number] 18:43:00 Test Item Value Reference Range Interpretation Comments PE Interp CSF CSF protein electrophoresis (test code = PE did not reveal evidence of Interp CSF) an oligoclonal process in the INDUSTRIAL PARAMEDIC. The CSF IgG index is within the reference range indicating that there is no elevation in intracerebral IgG synthesis. There is also no evidence of increased permeability of the blood brain barrier based on the CSF/serum albumin ratio. The electronic medical record has been reviewed for relevant history. I have personally reviewed the test results and concur with the resident's interpretation. CPT: 33166-WO [facility] HospitalNenpblcJHVWJQHEES9923-93-05 18:43:00 Test Item Value Reference Range Interpretation Comments Description CSF (test The gel demonstrates code = Description appropriate resolution CSF) of the main protein bands. The gamma region shows continuous distribution of proteins both in the CSF and in the serum. No oligoclonal bands are detected. [facility] Hospit[id number] 18:43:00 Test Item Value Reference Range Interpretation Comments IgG Index (test code = IgG Index) 0.6 0.3-0.7 [facility] HospitalPaspmlfAOAGLZKZHJ9020-15-18 18:43:00 Test Item Value Reference Range Interpretation Comments Alb CSF (CPE) (test code = Alb CSF 4.1 14.0-25.0 (CPE)) [facility] Hospit[id number] 18:43:00 Test Item Value Reference Range Interpretation Comments IgG (CPE) (test code = IgG (CPE)) 039 040-7119 [facility] HospitalPxoljqiVAQWLEOMXN4739-29-29 18:43:00 Test Item Value Reference Range Interpretation Comments IgG Lvl CSF (test code = IgG Lvl CSF) 0.9 2.0-4.0 [facility] Ho[id number] 18:43:00 Test Item Value Reference Range Interpretation Comments Alb (CPE) (test code = Alb (CPE)) 2700.0 3400.0-5000.0 [facility] HospitalannBACTERIAL - [id number] 04:30:00 Test Item Value Reference Range Interpretation Comments MRSA by PCR (test Negative 29(09/29/13 code = MRSA by PCR) 11:30 PM) [facility] [id number] 04:30:00 Test Item Value Reference Range Interpretation Comments UA Trans Epi (test code = UA Trans Epi) 7 [facility]
[2022-04-08 03:03] LABS: Absolute Lymphocytes (CBC) 0.7 K/uL (0.7-4.9); Hematocrit 42.8 % (39.6-49.0); Lymphocytes % 4.5 % (15.3-44.8); MPV 8.1 fL (7.6-11.3); RBC Red Blood Cell Count 5.79 M/uL (4.33-5.43)
[2022-04-08 03:06] LABS: Protime INR 1.13
[2022-04-08 03:18] LABS: Urine Blood Negative (Negative); Urine Glucose Negative (Negative); Urine Protein 2+ (Negative); Urine Specific Gravity 1.025 (1.005-1.030)
[2022-04-08] MEDS ORDERED: CEFTRIAXONE 1000 MG/VIAL ONE (03:34)
[2022-04-08 04:00] LABS: SARS-COV-2 RT PCR NEGATIVE (NEGATIVE)
[2022-04-08] MEDS ORDERED: ACETAMINOPHEN 500 MG TAB ONE (04:39)
[2022-04-08 04:40] LABS: Albumin 3.6 g/dL (3.4-5.0); Bilirubin Direct 0.1 mg/dL (0-0.2); Bilirubin Total 0.6 mg/dL (0.2-1.0); Magnesium 1.7 mg/dL (1.6-2.4); Protein, Total 8.2 g/dL (6.4-8.2); Troponin High Sensitivity 6.9 pg/mL (<58.9)
[2022-04-08 04:45] LABS: Potassium 4.2 mmol/L (3.5-5.1)
--- NOTE | 2022-04-08 06:37 | EDPHYS ---
Physician Documentation [facility] Name: Chucky Weinberg Age: 51 yrs Sex: Male : 1970 Arrival Date: 04/08/2022 Time: 01:45 Bed 7 Private MD: PAL Physician Teo Nj HPI: 04/08 02:06 This 51 yrs old Male presents to ER via EMS with complaints of Nausea/Vomiting.melissa 02:06 The patient presents to the emergency department with nausea, vomiting, abdominal pain, melissa of the right upper quadrant, left upper quadrant, right lower quadrant and left lower quadrant. Onset: The symptoms/episode began/occurred yesterday. Possible causes: unknown. The symptoms are aggravated by nothing. The symptoms are alleviated by nothing. Associated signs and symptoms: Pertinent positives: abdominal pain, nausea. Severity of symptoms: At their worst the symptoms were mild in the emergency department the symptoms are unchanged. The patient has experienced similar episodes in the past, a few times. Historical: - Allergies: 05:38 No Known Allergies; pf1 - Home Meds: 05:38 Ativan 1 mg Oral tab 1 tab 3 times per day for anxiety [Active]; atorvastatin 20 mg pf1 Oral tab 1 tab once daily for hyperlipidemia [Active]; docusate sodium 100 mg Oral cap 1 cap once daily for constipation [Active]; doxepin 10 mg Oral cap 2 caps nightly [Active]; Keppra 500 mg Oral tab 1 tab 2 times per day [Active]; metformin 500 mg Oral tab 1 tab 2 times per day [Active]; tamsulosin 0.4 mg Oral cp24 1 cap once daily [Active]; baclofen pain pump daily [Active]; - PMHx: 05:38 CVA; Diabetes - NIDDM; Hyperlipidemia; Seizures; Aneurysm; brain; left sided paralysis; pf1 TIA; - PSHx: 05:38 pain pump-baclofen; vp [employer] shunt; pf1 - Immunization history:: Pneumococcal vaccine is up to date, Flu vaccine is up to date. - Social history:: Smoking status: Patient/guardian denies using tobacco, the patient reports quitting approximately 10 years ago. - Family history:: not pertinent. ROS: 02:07 Constitutional: Negative for fever, chills, and weight loss, Eyes: Negative for injury, melissa pain, redness, and discharge, ENT: Negative for injury, pain, and discharge, Neck: Negative for injury, pain, and swelling, Cardiovascular: Negative for chest pain, palpitations, and edema, Respiratory: Negative for shortness of breath, cough, wheezing, and pleuritic chest pain, Back: Negative for injury and pain, : Negative for injury, bleeding, discharge, and swelling, MS/Extremity: Negative for injury and deformity, Skin: Negative for injury, rash, and discoloration, Psych: Negative for depression, anxiety, suicide ideation, homicidal ideation, and hallucinations, Allergy/Immunology: Negative for hives, rash, and allergies, Endocrine: Negative for neck swelling, polydipsia, polyuria, polyphagia, and marked weight changes, Hematologic/Lymphatic: Negative for swollen nodes, abnormal bleeding, and unusual bruising. 02:07 Abdomen/GI: Positive for abdominal pain, nausea and vomiting. Exam: 02:07 Constitutional: This is a well developed, well nourished patient who is awake, alert, melissa and in no acute distress. Head/Face: Normocephalic, atraumatic. Eyes: Pupils equal round and reactive to light, extra-ocular motions intact. Lids and lashes normal. Conjunctiva and sclera are non-icteric and not injected. Cornea within normal limits. Periorbital areas with no swelling, redness, or edema. ENT: Nares patent. No nasal discharge, no septal abnormalities noted. Tympanic membranes are normal and external auditory canals are clear. Oropharynx with no redness, swelling, or masses, exudates, or evidence of obstruction, uvula midline. Mucous membranes moist. Neck: Trachea midline, no thyromegaly or masses palpated, and no cervical lymphadenopathy. Supple, full range of motion without nuchal rigidity, or vertebral point tenderness. No Meningismus. Chest/axilla: Normal chest wall appearance and motion. Nontender with no deformity. No lesions are appreciated. Cardiovascular: Regular rate and rhythm with a normal S1 and S2. No gallops, murmurs, or rubs. Normal PMI, no JVD. No pulse deficits. Respiratory: Lungs have equal breath sounds bilaterally, clear to auscultation and percussion. No rales, rhonchi or wheezes noted. No increased work of breathing, no retractions or nasal flaring. Back: No spinal tenderness. No costovertebral tenderness. Full range of motion. Male : Normal genitalia with no discharge or lesions. Skin: Warm, dry with normal turgor. Normal color with no rashes, no lesions, and no evidence of cellulitis. MS/ Extremity: Pulses equal, no cyanosis. Neurovascular intact. Full, normal range of motion. Neuro: Awake and alert, GCS 15, oriented to person, place, time, and situation. Cranial nerves II-XII grossly intact. Motor strength 5/5 in all extremities. Sensory grossly intact. Cerebellar exam normal. Normal gait. Psych: Awake, alert, with orientation to person, place and time. Behavior, mood, and affect are within normal limits. 02:07 Abdomen/GI: Inspection: distension, that is mild, Bowel sounds: normal, Palpation: mild abdominal tenderness, in all quadrants, Liver: no appreciated palpable abnormalities, Hernia: not appreciated. Vital Signs: 01:45 BP 152 / 85; Pulse 95; Resp 20; Temp 99.2; Pulse Ox 96% on R/A; Weight 116.12 kg; pf1 Height 5 ft. 9 in. (175.26 cm); Pain 0/10; 02:00 BP 148 / 89; Pulse 92; Resp 22 S; Pulse Ox 98% on R/A; aa9 02:30 BP 152 / 85; Pulse 90; Resp 18; Pulse Ox 95% on R/A; pf1 04:00 BP 136 / 79; Pulse 103; Resp 20 S; Temp 99.3(TE); Pulse Ox 98% on R/A; pf1 04:52 BP 136 / 79; Pulse 101; Resp 18; Temp 99(O); Pulse Ox 95% on R/A; Pain 3/10; pf1 05:07 BP 124 / 69; Pulse 99; Resp 16 S; Pulse Ox 97% on R/A; aa9 06:15 BP 138 / 93; Pulse 90; Resp 18; Temp 99; Pulse Ox 95% ; Pain 2/10; pf1 07:00 BP 126 / 72; Pulse 93; Resp 20; Temp 98.9; Pulse Ox 96% on R/A; Pain 1/10; pf1 01:45 Body Mass Index 37.80 (116.12 kg, 175.26 cm) pf1 Tab Coma Score: 02:09 Eye Response: spontaneous(4). Verbal Response: oriented(5). Motor Response: obeys [facility] commands(6). Total: 15. MDM: 01:53 Patient medically screened. [facility] 02:09 Data reviewed: vital signs, nurses notes, lab test result(s), EKG, radiologic studies, [facility] plain films. Consideration of Admission/Observation Patient was admitted/placed on observation. Escalation of care including admission/observation considered. Test considered but Not performed: MRI: mri brain na. 04/08 01:54 Order name: Basic Metabolic Panel; Complete Time: 06:35 [facility] 04/08 01:54 Order name: CBC with Diff; Complete Time: 03:14 [facility] 04/08 01:54 Order name: LFT's; Complete Time: 06:35 [facility] 04/08 01:54 Order name: Magnesium; Complete Time: 06:35 [facility] 04/08 01:54 Order name: NT PRO-BNP; Complete Time: 06:35 [facility] 04/08 01:54 Order name: PT-INR; Complete Time: 03:14 [facility] 04/08 01:54 Order name: Troponin HS; Complete Time: 06:35 [facility] 04/08 01:54 Order name: XRAY Chest (1 view) [facility] 04/08 01:54 Order name: Lipase; Complete Time: 06:35 [facility] 04/08 02:04 Order name: COVID-19/FLU A+B; Complete Time: 04:40 [facility] 04/08 03:16 Order name: Lactate w/ 2H reflex if indic.; Complete Time: 04:40 [facility] 04/08 03:16 Order name: Blood Culture Adult (2) [facility] 04/08 03:18 Order name: Urine Dipstick-Ancillary; Complete Time: 03:21 [facility] 04/08 03:55 Order name: CREATININE WHOLE BLOOD; Complete Time: 04:40 [facility] 04/08 01:54 Order name: EKG; Complete Time: 01:55 [facility] 04/08 01:54 Order name: Cardiac monitoring; Complete Time: 02:54 [facility] 04/08 01:54 Order name: EKG - Nurse/Tech; Complete Time: 02:24 [facility] 04/08 01:54 Order name: IV Saline Lock; Complete Time: 02:54 [facility] 04/08 01:54 Order name: Labs collected and sent; Complete Time: 02:54 [facility] 04/08 01:54 Order name: O2 Per Protocol; Complete Time: 02:54 [facility] 04/08 01:54 Order name: O2 Sat Monitoring; Complete Time: 02:54 [facility] 04/08 01:54 Order name: Urine Dipstick-Ancillary (obtain specimen); Complete Time: 03:18 [facility] 04/08 02:04 Order name: CT Traumagram (Head C Spine CAP W Con) melissa Administered Medications: 02:54 Drug: NS 0.9% 1000 ml Route: IV; Rate: 1 bolus; Site: left antecubital; aa9 07:30 Follow up: IV Status: Completed infusion; IV Intake: 1000ml db 02:54 Drug: Zofran (Ondansetron) 4 mg Route: IVP; Site: left antecubital; aa9 03:28 Follow up: Response: No adverse reaction; Nausea is decreased pf1 03:55 Drug: NS 0.9% 1000 ml Route: IV; Rate: 1 bolus; Site: right antecubital; pf1 04:50 Follow up: IV Status: Completed infusion; IV Intake: 1000ml pf1 04:55 Drug: Tylenol 1000 mg Route: PO; pf1 05:50 Follow up: Response: No adverse reaction; Marked relief of symptoms; Pain is decreased; pf1 RASS: Alert and Calm (0) 05:00 Drug: Rocephin (cefTRIAXone) 1 grams Route: IV; Rate: per protocol; Site: right pf1 antecubital; 07:30 Follow up: IV Status: Completed infusion; IV Intake: 100ml db Disposition Summary: 04/08/22 06:36 Discharge Ordered Location: Home melissa Problem: new melissa Symptoms: have improved melissa Condition: Stable melissa Diagnosis - Vomiting melissa - Elevated white blood cell count melissa - Abdominal pain, Generalized melissa - Headache melissa Followup: melissa - With: Private Physician - When: 2 - 3 days - Reason: Recheck today's complaints, Continuance of care, Re-evaluation by your physician Followup: melissa - With: - When: 2 - 3 days - Reason: Recheck today's complaints, Continuance of care, Re-evaluation by your physician Discharge Instructions: - Discharge Summary Sheet melissa - Abdominal Pain, Adult melissa - General Headache Without Cause melissa - Abdominal Pain, Adult, [id number] melissa - General Headache Without Cause, [id number] melissa - Vomiting, Adult melissa Forms: - SBAR form pf1 - Medication Reconciliation Form melissa - Thank You Letter melissa - Antibiotic Education [facility] - Prescription Opioid Use [facility] Prescriptions: - Pepcid 20 mg Oral Tablet - take 1 tablet by ORAL route every 12 hours for 21 days; 42 tablet; Refills: 0, [facility] Product Selection Permitted - Zofran 4 mg Oral Tablet - take 1 tablet by ORAL route every 12 hours As needed; 20 tablet; Refills: 0, [facility] Product Selection Permitted - promethazine 25 mg Oral Tablet - take 1 tablet by ORAL route every 6 hours As needed; 20 tablet; Refills: 0, [facility] Product Selection Permitted Signatures: Dispatcher [employer] Teo Hernandez MD MD cha Avalos, Aylin, RN RN aa9 Abena morales RN RN pf1 Stephanie Cueto RN db
--- NOTE | 2022-04-08 06:37 | ER ---
Nurse's Notes [facility] Name: Chucky Weinberg Age: 51 yrs Sex: Male : 1970 Arrival Date: 04/08/2022 Time: 01:45 Bed 7 Private MD: Diagnosis: Vomiting;Elevated white blood cell count;Abdominal pain, Generalized;Headache Presentation: 04/08 01:45 Chief complaint: Patient states: Nausea and vomiting,onset tonight. Patient stated pf1 vomited x 3 episodes tonight. Patient C/O generalized abdominal pain and right side temporal pressure pain sensation of 4,onset tonight. Patient stated he son was sick yesterday. 01:45 Coronavirus screen: Client denies travel out of the [place] in the last 14 days. Client pf1 presents with at least one sign or symptom that may indicate coronavirus-19. Standard/surgical mask placed on the client. Ebola Screen: Patient negative for fever greater than or equal to 101.5 degrees Fahrenheit, and additional compatible Ebola Virus Disease symptoms. Initial Sepsis Screen: Does the patient meet any 2 criteria? No. Patient's initial sepsis screen is negative. Does the patient have a suspected source of infection? No. Patient's initial sepsis screen is negative. Risk Assessment: Do you want to hurt yourself or someone else? Patient reports no desire to harm self or others. Onset of symptoms was April 07, 2022. 01:45 Method Of Arrival: EMS: [facility] pf1 01:45 Acuity: JAVIER 3 pf1 Triage Assessment: 01:45 General: see nursing assessment. pf1 Historical: - Allergies: 05:38 No Known Allergies; pf1 - Home Meds: 05:38 Ativan 1 mg Oral tab 1 tab 3 times per day for anxiety [Active]; atorvastatin 20 mg pf1 Oral tab 1 tab once daily for hyperlipidemia [Active]; docusate sodium 100 mg Oral cap 1 cap once daily for constipation [Active]; doxepin 10 mg Oral cap 2 caps nightly [Active]; Keppra 500 mg Oral tab 1 tab 2 times per day [Active]; metformin 500 mg Oral tab 1 tab 2 times per day [Active]; tamsulosin 0.4 mg Oral cp24 1 cap once daily [Active]; baclofen pain pump daily [Active]; - PMHx: 05:38 CVA; Diabetes - NIDDM; Hyperlipidemia; Seizures; Aneurysm; brain; left sided paralysis; pf1 TIA; - PSHx: 05:38 pain pump-baclofen; vp compliance shunt; pf1 - Immunization history:: Pneumococcal vaccine is up to date, Flu vaccine is up to date. - Social history:: Smoking status: Patient/guardian denies using tobacco, the patient reports quitting approximately 10 years ago. - Family history:: not pertinent. Screenin:45 [facility] ED Fall Risk Assessment (Adult) History of falling in the last 3 months, pf1 including since admission No falls in past 3 months (0 pts) Confusion or Disorientation No (0 pts) Intoxicated or Sedated No (0 pts) Impaired Gait Yes (1 pt) Mobility Assist Device Used Yes (1 pt) Altered Elimination No (0 pt) Score/Fall Risk Level 0 - 2 = Low Risk Oriented to surroundings, Maintained a safe environment, Educated pt \T\ family on fall prevention, incl call for assistance when getting out of bed, Assessed \T\ reinforced patient's understanding of fall precautions, Provided non-skid footwear, Hourly rounding (assess needs \T\ fall precautionary measures) done, Used ambulatory aids as needed (educated on \T\ assisted with), Used gait belt as appropriate. 01:45 Abuse screen: Denies threats or abuse. Nutritional screening: No deficits noted. pf1 Tuberculosis screening: No symptoms or risk factors identified. Assessment: 01:45 General: Appears in no apparent distress. comfortable, obese, well groomed, well pf1 developed, Behavior is calm, cooperative, appropriate for age, quiet. 01:45 Pain: Complains of pain in left lower quadrant and right lower quadrant and left upper pf1 quadrant and right upper quadrant. Neuro: No deficits noted. Level of Consciousness is awake, alert, obeys commands, Oriented to person, place, time, situation. Cardiovascular: No deficits noted. Capillary refill < 3 seconds Patient's skin is warm and dry. Respiratory: No deficits noted. Airway is patent Trachea midline Respiratory effort is even, unlabored, Respiratory pattern is regular, symmetrical. GI: Abdomen is round non-distended, Bowel sounds present X 4 quads. Reports lower abdominal pain, upper abdominal pain, nausea, vomiting. : No deficits noted. No signs and/or symptoms were reported regarding the genitourinary system. EENT: No deficits noted. No signs and/or symptoms were reported regarding the EENT system. Derm: No deficits noted. No signs and/or symptoms reported regarding the dermatologic system. 02:45 Reassessment: Patient appears in no apparent distress at this time. Patient and/or pf1 family updated on plan of care and expected duration. Pain level reassessed. Patient is alert, oriented x 3, equal unlabored respirations, skin warm/dry/pink. Patient states symptoms have improved. 03:15 General: Patient taken to catscan via stretcher. pf1 03:45 Reassessment: Patient appears in no apparent distress at this time. Patient and/or pf1 family updated on plan of care and expected duration. Pain level reassessed. Patient is alert, oriented x 3, equal unlabored respirations, skin warm/dry/pink. Patient states symptoms have improved. 04:30 Reassessment: Patient appears in no apparent distress at this time. Patient and/or pf1 family updated on plan of care and expected duration. Pain level reassessed. Patient is alert, oriented x 3, equal unlabored respirations, skin warm/dry/pink. Patient C/O right side temporal pressure pain of 4 with generalized abdominal pain of 3. Patient pending catscan results. . 05:30 Reassessment: Patient appears in no apparent distress at this time. Patient and/or pf1 family updated on plan of care and expected duration. Pain level reassessed. Patient is alert, oriented x 3, equal unlabored respirations, skin warm/dry/pink. Patient states feeling better. Patient states symptoms have improved. 06:00 General: Patient wheelchaired to restroom to have a BM. pf1 06:30 Reassessment: Patient appears in no apparent distress at this time. Patient and/or pf1 family updated on plan of care and expected duration. Pain level reassessed. Patient is alert, oriented x 3, equal unlabored respirations, skin warm/dry/pink. Patient states feeling better. Patient states symptoms have improved. 07:28 Reassessment: PT DC HOME VIA WC WITH FAMILY. db Vital Signs: 01:45 BP 152 / 85; Pulse 95; Resp 20; Temp 99.2; Pulse Ox 96% on R/A; Weight 116.12 kg; pf1 Height 5 ft. 9 in. (175.26 cm); Pain 0/10; 02:00 BP 148 / 89; Pulse 92; Resp 22 S; Pulse Ox 98% on R/A; aa9 02:30 BP 152 / 85; Pulse 90; Resp 18; Pulse Ox 95% on R/A; pf1 04:00 BP 136 / 79; Pulse 103; Resp 20 S; Temp 99.3(TE); Pulse Ox 98% on R/A; pf1 04:52 BP 136 / 79; Pulse 101; Resp 18; Temp 99(O); Pulse Ox 95% on R/A; Pain 3/10; pf1 05:07 BP 124 / 69; Pulse 99; Resp 16 S; Pulse Ox 97% on R/A; aa9 06:15 BP 138 / 93; Pulse 90; Resp 18; Temp 99; Pulse Ox 95% ; Pain 2/10; pf1 07:00 BP 126 / 72; Pulse 93; Resp 20; Temp 98.9; Pulse Ox 96% on R/A; Pain 1/10; pf1 01:45 Body Mass Index 37.80 (116.12 kg, 175.26 cm) pf1 Tab Coma Score: 02:09 Eye Response: spontaneous(4). Verbal Response: oriented(5). Motor Response: obeys melissa commands(6). Total: 15. ED Course: 01:45 Patient arrived in ED. wm 01:45 Patient has correct armband on for positive identification. Placed in gown. Bed in low pf1 position. Call light in reach. Side rails up X2. 01:50 Warm blanket given. Verbal reassurance given. pf1 01:50 Arm band placed on right wrist. pf1 01:53 Teo Nj MD is Attending Physician. melissa 02:03 Triage completed. pf1 02:41 XRAY Chest (1 view) In Process Unspecified. EDMS 02:54 COVID-19/FLU A+B Sent. aa9 02:54 Lipase Sent. aa9 03:09 Abena morales, LUCAS is Primary Nurse. pf1 03:41 CT Traumagram (Head C Spine CAP W Con) In Process Unspecified. EDMS 03:55 No provider procedures requiring assistance completed. Inserted saline lock: 20 gauge pf1 in right antecubital area, using aseptic technique. Blood collected. 03:58 Lactate w/ 2H reflex if indic. Sent. pf1 04:15 Missed attempt(s): 22 gauge in left hand. Bleeding controlled, band aid applied, pf1 catheter tip intact. 05:03 Blood Culture Adult (2) Sent. pf1 06:28 Blood Culture Adult (2) Sent. pf1 06:36 Blayne Tom MD is Referral Physician. melissa 07:28 IV discontinued, intact, bleeding controlled, No redness/swelling at site. Pressure db dressing applied. Administered Medications: 02:54 Drug: NS 0.9% 1000 ml Route: IV; Rate: 1 bolus; Site: left antecubital; aa9 07:30 Follow up: IV Status: Completed infusion; IV Intake: 1000ml db 02:54 Drug: Zofran (Ondansetron) 4 mg Route: IVP; Site: left antecubital; aa9 03:28 Follow up: Response: No adverse reaction; Nausea is decreased pf1 03:55 Drug: NS 0.9% 1000 ml Route: IV; Rate: 1 bolus; Site: right antecubital; pf1 04:50 Follow up: IV Status: Completed infusion; IV Intake: 1000ml pf1 04:55 Drug: Tylenol 1000 mg Route: PO; pf1 05:50 Follow up: Response: No adverse reaction; Marked relief of symptoms; Pain is decreased; pf1 RASS: Alert and Calm (0) 05:00 Drug: Rocephin (cefTRIAXone) 1 grams Route: IV; Rate: per protocol; Site: right pf1 antecubital; 07:30 Follow up: IV Status: Completed infusion; IV Intake: 100ml db Medication: 06:34 VIS not applicable for this client. pf1 Intake: 04:50 IV: 1000ml; Total: 1000ml. pf1 07:30 IV: 100ml; Total: 1100ml. db 07:30 IV: 1000ml; Total: 2100ml. db Outcome: 06:36 Discharge ordered by . melissa 07:28 Discharged to home via wheelchair, with family. db 07:28 Condition: stable 07:28 Discharge instructions given to patient, Instructed on discharge instructions, follow up and referral plans. medication usage, Demonstrated understanding of instructions, follow-up care, medications, Prescriptions given X 3. 07:31 Patient left the ED. pf1 Signatures: Dispatcher [employer] EDTeo Billy MD MD cha Perez, Joanne wm Mi, Sallie, RN RN aa9 Stephanie Cueto RN RN db finley, Pamala, RN RN pf1 Corrections: (The following items were deleted from the chart) 03:20 01:45 Chief complaint: Patient states: Nausea and vomiting,onset tonight. Patient pf1 stated vomited x 3 episodes tonight. Patient denies any abdominal pain. Patient stated he son was sick yesterday. pf1 04:20 01:45 Chief complaint: Patient states: Nausea and vomiting,onset tonight. Patient pf1 stated vomited x 3 episodes tonight. Patient C/O generalized abdominal pain. Patient stated he son was sick yesterday. pf1 : 04:00 BP 136 / 79; Pulse 103bpm; Resp 20bpm; Spontaneous; Pulse Ox 98% RA; aa9 pf1
[2022-04-08 08:10] VITALS: BP 126/72; TEMP 98.9; O2SAT 96
--- NOTE | 2022-04-09 13:02 | RAD REPORT ---
EXAM DESCRIPTION: RAD - Chest Single View - 04/08/2022 2:39 am CLINICAL HISTORY 51 years, Male, ABDOMINAL DISTENTION COMPARISON: 08/09/2021 FINDINGS: Single view of the chest was obtained portable. Prior films were compared. The lung volume is slightly decreased. Again there is a tubular structure within the midline left of the chest corre sponding to a ventricular peritoneal shunt. The heart is not enlarged and slightly accentuated by the presence of decreased lung volume and pericardial fat pad. The thoracic aorta is unremarkable. Mild elevation right hemidiaphragm. Costophrenic angles are sharp. No areas of consolidation or masses a re seen. The rest of the soft tissue and bony structures demonstrate to be unremarkable. IMPRESSION: Slight decreased lung volume. Ventricular peritoneal shunt in place. No focal areas of acute airspace disease. Electronically signed by: Aime Morris MD 04/08/2022 2:53 AM INTERNET SITE DESIGNER Due to temporary technical issues with the PACS/Fluency reporting system, reports are being signed by the in house radiologists without review as a courtesy to insure prompt reporting. The interpreting radiologist is fully responsible for the content of the report. Electronically signed by: Daquan Diaz MD 04/08/2022 12:38 AM INTERNET SITE DESIGNER
--- NOTE | 2022-04-09 14:35 | RAD REPORT ---
EXAM DESCRIPTION: CT - Head C Spine Cap W Con - 04/08/2022 6:17 am CLINICAL HISTORY: 51 years Male noel/abd pain TECHNIQUE: Multiple axial CT images of the brain and cervical spine were performed followed by sagit lexi and coronal reconstructed images. Following the administration of intravenous contrast, multiple axial CT images of the chest, abdomen and pelvis were performed followed by sagittal and coronal lee nstructed images. The CT study is performed according to ALARA (as low as reasonably achievable) or A SARAH/IMAGE GENTLY, with automatic adjustment of mA and/or kV according to patient size. Performed on: 04/08/2022 at 3:22 AM COMPARISON: No prior studies were available for comparison.. FINDINGS: CT HEAD: There are remote postsurgical changes of the calvarium consistent with the prior right craniotomy. Th ere are post therapeutic coils within the base of the brain to the right of midline possibly related to prior embolization in the region of the distal right vertebral artery. There is a left foraminal v entriculoperitoneal shunt catheter. The catheter tip terminates in the region of the foramen of Monro e. There is encephalomalacia involving a portion of the right frontal lobe and mild encephalomalacia inv olving portions of the inferior left frontal lobe in the region of the sylvian fissure and encephalom alacia in the left frontal lobe adjacent to the ventriculoperitoneal shunt catheter. There is marked cystic dilatation of the right temporal horn and atria of the right lateral ventricle with possible c ystic encephalomalacia involving the right parietal lobe as well as portions of the right temporal an d occipital lobe. The third, fourth and lateral ventricles are dilated. The cerebral sulci are within normal limits. There is no evidence of acute intracranial hemorrhage. There is trace mucosal thickening of the paranasal sinuses. The mastoid air cells are clear. The orbital contents are grossly unremarkable. No focal soft tissue abnormalities are identified. CT CERVICAL SPINE: The cervical vertebrae are normal in height. There is straightening of the normal cervical lordosis w hich may be related to patient positioning or muscle spasm. The disc spaces are relatively well prese rved in height. Bone mineralization is normal. The atlanto-axial articulation is preserved and t he odontoid process is intact. There is very minimal degenerative spurring of the vertebral endplates most pronounced at C5-C6 and C2-C3. There are remote postsurgical changes of the calvarium consisten t with a prior right craniotomy. There is normal alignment of the facet joints on the parasagittal images. There are no significant de generative changes of the facet joints. There is no evidence of acute fracture or subluxation. There is no significant canal stenosis. Ther e is no significant neural foraminal stenosis. The paravertebral and paraspinal soft tissues are un remarkable. The lung apices are clear. CHEST: Lungs: The lungs are well expanded and are clear. There is minimal bibasilar fibrosis and/or atelecta sis. There are no pleural effusions. There is no pneumothorax. The central airways are patent. Heart: The heart is top normal in size. There is no pericardial effusion. There are minimal coron daryl artery calcifications. Mediastinum: The mediastinum is unremarkable. The mediastinal vessels are normal in caliber and con tour. There are mild atherosclerotic calcifications along the thoracic aorta. Bones: No acute osseous abnormalities are identified. There are a couple of old left-sided rib fractu res. Soft tissues: No focal soft tissue abnormalities are identified. A dorsal column stimulator extends a long the spinal canal. Lymphadenopathy: No pathologic hilar, mediastinal or axillary lymphadenopathy is identified. ABDOMEN/PELVIS: Liver: The liver measures approximately 21 cm in cranial caudal dimension. No focal hepatic abnormali ties are identified. There is diffusely decreased attenuation of the liver which can be seen with fat ty infiltration. The portal veins are patent. Spleen: The spleen is normal is size, configuration and attenuation. Gallbladder and bile duct: The gallbladder is well distended and unremarkable. There is no biliary ductal dilatation. Pancreas: The pancreas is grossly normal in size and configuration. Adrenal Glands: The adrenal glands are normal in size and configuration. Kidneys: The kidneys are normal in size and configuration. There is no evidence of hydronephrosis. Th ere appears to be a punctate nonobstructing left renal calculus. No definite solid or cystic renal ma ss lesions are identified. Stomach: The stomach is grossly normal. There is no definite hiatal hernia. Bowel: The bowel gas pattern is non specific and non obstructive. Appendix: The appendix is normal. Free air: There is no evidence of free air. Free fluid: There is no evidence of free fluid. Vasculature: The aorta is normal in caliber and contour. The inferior vena cava is grossly unremarkab le. Lymphadenopathy: No pathologic lymphadenopathy is identified. Bladder: The bladder is partially distended and smooth in contour. Reproductive: The prostate gland is grossly within normal limits. Bones: No acute osseous abnormalities are identified. There is a prominent disc osteophyte complex at L3-L4 and L5-S1. Soft tissues: No acute soft tissue abnormalities are identified. A ventriculoperitoneal shunt cathete r is present which terminates in the anterior pelvis. An electrical generator related to the dorsal c olumn stimulator projects along the right lower anterior abdominal wall within the subcutaneous soft tissues. IMPRESSION: CT HEAD: 1. No evidence of acute intracranial pathology. 2. Remote right craniotomy. 3. Chronic encephalomalacia involving the right frontal lobe, right parietal lobe and right occipit al lobe with marked cystic dilatation of the right temporal horn and atria of the right lateral ventr icle. 4. Left frontal ventriculoperitoneal shunt catheter present. 5. Chronic ventriculomegaly. 6. Suspect prior coil embolization in the region of the distal right vertebral artery. CT CERVICAL SPINE: 1. No evidence of acute osseous injury involving the cervical spine. 2. Straightening of the normal cervical lordosis which may be related to patient positioning or mus ihsan spasm. 3. Mild degenerative changes of the cervical spine as described above. CT CHEST: 1. No evidence of acute intrathoracic disease. 2. Dorsal column stimulator noted. CT ABDOMEN AND PELVIS: 1. No evidence of acute intra-abdominal or intrapelvic pathology. There is no evidence of bowel obs truction, appendicitis, acute gallbladder pathology or urinary tract obstruction 2. Hepatomegaly and diffusely decreased attenuation of the liver which can be seen with fatty infil tration. 3. Punctate nonobstructing left renal calculus. 4. Ventriculoperitoneal shunt catheter present terminating in the anterior pelvis. 5. Prominent disc osteophyte complexes at L3-L4 and L5-S1. 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 The interpreting radiologist is fully responsible for the content of the report.
--- NOTE | 2022-04-10 16:58 | EKG ---
Test Date: 2022-04-08 Test Time: 02:20:30 Color Adviser: MEKA MEASUREMENT RESULTS: Intervals: Rate: 97 CT: 138 QRSD: 74 QT: 322 QTc: 408 [place]: P: 51 CT: 138 QRS: 34 T: 22 INTERPRETIVE STATEMENTS: Normal sinus rhythm Possible Left atrial enlargement Borderline ECG Compared to ECG 08/09/2021 04:41:45 No significant changes Electronically Signed On 04-10-22 16:55:21 MOP WORKER by Osvaldo Gudino
== END 2022-04-08 07:31 | disposition home or self-care (01) ==
LOC: ER 01:44
DX: R11.2 Nausea with vomiting, unspecified (principal); D72.829 Elevated white blood cell count, unspecified; R10.84 Generalized abdominal pain; R51.9 Headache, unspecified; E11.9 Type 2 diabetes mellitus without complications; Z98.2 Presence of cerebrospinal fluid drainage device; Z20.822 Contact with and (suspected) exposure to COVID-19; Z86.73 Personal history of transient ischemic attack (TIA), and cerebral infarction without residual deficits
CPT/HCPCS: 96365; 96361; 93005; 87040 ×2; 85025; 80048; 36415; 83735; 85610; 82565; 80076; 83605; 81003; 84484; 83690; 83880; 0240U; 70450; 72125; 71260; 74177; 71045; 96375; 99284; 96366; Q9967; J7030 ×2; J2405

== ENCOUNTER 2022-04-18 06:37 | Emergency (ER) | payer OTHER ==
--- OUTSIDE RECORDS SUMMARY | 2022-04-18 07:27 | XMS REPORT | Continuity of Care Document ---
:1970 Author Organization [facility] t Address [address] [place] [address] Care Team Providers Name Role Phone Unknown, Physician Primary Care Physician Unavailable Bart Shah Attending Clinician Unavailable [id number] Attending Clinician Unavailable Louis Lay Attending Clinician Unavailable LIO MANCUSO Attending Clinician Unavailable Mai Matta NP Attending Clinician Catherine ELLISON, Jeannette Attending Clinician JEANNETTE ALEXANDER Attending Clinician Unavailable Domenico Brush MD Attending Clinician Marlon Arreaga CRNA Attending Clinician JEANNETTE ALEXANDER Attending Clinician Unavailable RIGOBERTO CARRILLO Attending Clinician Unavailable Coleen De La Paz MD Attending Clinician YAZAN KNIGHT Attending Clinician Unavailable Yazan Knight MD Attending Clinician Ekta ZAVALA, Blanca Donaldson Attending Clinician Unavailable CHARITO MICHELLE Attending Clinician Unavailable Rick ELLISON, Ebenezer Harmon Attending Clinician Jimbo Luna MD Attending Clinician Deepika Castro MD Attending Clinician Charito Michelle MD Attending Clinician TAYLOR CRAIG Attending Clinician Unavailable ANGUS BARNES Attending Clinician Unavailable Angus Barnes DO Attending Clinician ELAINA GREER Attending Clinician Unavailable Elaina Iglesias Attending Clinician Missy Walker MD Attending Clinician Doctor Unassigned, [place] Attending Clinician Unavailable OMER MAYO Attending Clinician Unavailable OMER MAYO Attending Clinician Unavailable Omer Mayo MD Attending Clinician COLEEN DE LA PAZ Attending Clinician Unavailable Provider, [facility] Attending Clinician Unavailable Jose ZAVALA, Michelle Schaeffer Attending Clinician Unavailable 2, [facility] Attending Clinician Unavailable 1, [facility] Sleep [facility] Bed Attending Clinician Unavailable Mer Askew DO Attending Clinician Mary Fleming DO Attending Clinician Po, [facility] Main Attending Clinician Unavailable Basil Singer MD Attending Clinician NIDHI CHAMPION Attending Clinician Unavailable LACIE BAEZA Attending Clinician Unavailable CINDY CORTEZ Attending Clinician Unavailable [id number] Admitting Clinician Unavailable JEANNETTE ALEXANDER Admitting Clinician Unavailable YAZAN KNIGHT Admitting Clinician Unavailable DEEPIKA CASTRO Admitting Clinician Unavailable Deepika Castro MD Admitting Clinician ANGUS BARNES Admitting Clinician Unavailable ELAINA GREER Admitting Clinician Unavailable NIDHI CHAMPION Admitting Clinician Unavailable LACIE BAEZA Admitting Clinician Unavailable CINDY CORTEZ [facility] Admitting Clinician Unavailable Payers Payer Name Policy Type Policy Number Effective Date Expiration Date S jocelyn HUMANA MEDICARE [id number] 2019-08-23 2021-03-18 ADVANTAGE O 00:00:00 00:00:00 MCR MCR [id number] HUMM HUMM [id number] [facility] [id number] 2021-03-19 00:00:00 MEDICARE A B [id number] 2016-03-19 00:00:[address] [facility] [id number] [facility] MEDICARE PLAN O [id number] 2017-03-19 2017-11-16 - AETNA 00:00:00 00:00:00 MEDICARE PART A [id number] \\T\\ [id number] - MEDICARE MARKETPLACE PLAN [id number] HMO HUMANA MEDICARE C1 [id number] [facility] HUMANA MEDICARE C1 [id number] [facility] HUMANA MEDICARE C1 [id number] [facility] HUMANA MEDICARE C1 [id number] [facility] HUMANA MEDICARE C1 [id number] [facility] HUMANA MEDICARE C1 [id number] [facility] HUMANA MEDICARE C1 [id number] [facility] HUMANA MEDICARE C1 [id number] [facility] HUMANA MEDICARE C1 [id number] [facility] HUMANA MEDICARE C1 [id number] [facility] HUMANA MEDICARE C1 [id number] [facility] HUMANA MEDICARE C1 [id number] [facility] HUMANA MEDICARE C1 [id number] [facility] HUMANA MEDICARE C1 [id number] [facility] HUMANA MEDICARE C1 [id number] [facility] HUMANA MEDICARE C1 [id number] [facility] HUMANA MEDICARE C1 [id number] [facility] HUMANA MEDICARE C1 [id number] [facility] HUMANA MEDICARE C1 [id number] [facility] HUMANA MEDICARE C1 [id number] [facility] HUMANA MEDICARE C1 [id number] [facility] HUMANA MEDICARE C1 [id number] [facility] HUMANA MEDICARE C1 [id number] [facility] Problems Condition Condition Condition Status Onset Resolution Last Treating Co mments Source Name Details Category Date Date Treatment Clinician Date Cough Cough Disease Active Univers 5-28 ity of 00:00: [address] Obesity Obesity Disease Active Univers (BMI (BMI 5-28 ity of 30-39.9) 30-39.9) 00:00: [address] Branch Closed Closed Disease Active [place] displaced displaced 5-16 Heal th fracture fracture 00:00: of shaft of shaft 00 of left of left clavicle clavicle 2000/40ML 2000/40ML Diagnosis Active 2021-12-07 Memoria AD AD 07-23 13:30:00 l 12/04/2021 12/04/2021 00:00: Wilson tiptonann Active 00 07/23/2021 [facility] FOLLOW UP FOLLOW UP Diagnosis Active 2021-11-11 Memoria Active 07-19 16:23:00 l 07/19/2021 00:00: Mauricio PURI [facility] 00 2000/40ML 2000/40ML Diagnosis Active 2020-032021-07-19 Memoria Active 10:23:00 l 03/17/2021 00:00: Mauricio PURI [facility] 00 EVAL EVAL Diagnosis Active 2020-10-26 Mem oria Active 08-31 10:34:00 l 08/31/2020 00:00: Mauricio PURI [facility] 00 600 600 Diagnosis Active 2019-032020-08-27 Mem oria Active 23:33:00 l 03/16/2020 00:00: Mauricio rizo [facility] 00 2000/40 ML 2000/40 Diagnosis Active 2019-032020-06-25 Memoria ML Active 03-23 14:08:00 l 01/22/2020 00:00: Mauricio rizo [facility] 00 R51 - R51 - Diagnosis Active 2019-2019-11-04 Me moria HEADACHE HEADACHE 8-14 15:05:00 l Active 00:01: Demar 10/31/2019 00 MH OPID [place] 600 UNITS 600 UNITS Diagnosis Active 2019-12-17 Memoria Active 09-15 09:46:00 l 09/16/2019 00:00: Mauricio rizo [facility] 00 REFILL:200 REFILL:20 Diagnosis Active 2020-02-03 Memoria 0/40ML AD: 00/40ML 6- 14:52:00 l 02/01/20 AD: 00:00: Demar 02/01/20 00 Active 08/29/2019 [facility] BOTOX INJ. BOTOX Diagnosis Active 2019-09-16 Memoria INJ. 6-11 11:26:00 l Active 00:00: Demar 08/28/2019 00 MH [facility] Other Other Disease Active 2020- Univers headache headache 3-05 ity of syndrome syndrome 00:00: [place] 00 [facility] Branch DISCHARGE DISCHARGE Diagnosis Active 2019-09-16 Memoria FOLLOW UP FOLLOW UP 3-05 11:43:00 l Active 00:00: Demar 05/22/2019 00 MH [facility] Brain Brain Disease Active 2020- Univers aneurysm aneurysm 1-14 ity of 00:00: [place] 00 Medical Branch Mobility Mobility Disease Active 2020-0 Unive rs impaired impaired 1-14 ity of 00:00: [place] 00 Medical Branch Balance Balance Disease Active 2020-0 Univers problem problem 1-14 ity of 00:00: [place] Medical [facility] Sleep Sleep Disease Active 2020-0 Univers apnea in apnea in 1-14 ity of adult adult 00:00: [place] 00 Medical Branch Class 3 Class 3 [...] Branch Neuropathy Neuropathy Disease Active U nivers -14 ity of 00:00: [place] 00 Medical Branch Methicilli Methicill Problem Active 2018-032021-11-17 Memoria n in 04-06 00:32:03 l resistant resistant 00:00: Herm shelton Staphyloco Staphyloco 00 ccus ccus aureus aureus (organism) (organism) Active 02/04/2019 Problem 11/17/2021 Nares-01/17<br/ >Problem added by Discern Expert. Joan Neuro, [facility], Boris Zuniga [facility] ENCEPHALOP ENCEPHALO Diagnosis Active 2018-032019-02-26 Memoria ATHY RUIZ 04-06 22:03:00 l Active 00:00: Demar 02/04/2019 00 [facility] AMS AMS Diagnosis Active 2018-032019-06-09 Mem oria POSSIBLE POSSIBLE -19 15:20:00 l SHUNT SHUNT 00:00: Demar MALFUNCTIO MALFUNCTIO 00 N N Active 02/04/2019 [facility], AMS, Diagnosis Active 2018-032019-02-17 Mem oria POSSIBLE POSSIBLE 18 22:19:00 l SHUNT SHUNT 19:37: Demar MALFUNCTIO MALFUNCTIO 00 N N Active 02/03/2019 [facility] NUMBNESS NUMBNESS Diagnosis Active 2018-10-03 Memoria OF TOUNGE OF TOUNGE 09-23 14:21:00 l Active 00:00: Demar 09/23/2018 00 [facility] SLURRED SLURRED Diagnosis Active 2018-09-23 Memoria SPEECH SPEECH 09-23 23:49:00 l Active 00:00: Demar 09/23/2018 00 [facility] Impaired Impaired Disease Active [facility] gait [facility]28 [facility] mobility mobility 00:00: Medica l 00 Center Spastic Spastic Disease Active [address] hemiplegia hemiplegia 08-13 [place] [facility] affecting affecting 00:00: Medi cheryl left left 00 Center nondominan nondominan t side t side Essential Essential Disease Active [facility] hypertensi hypertensi - [place] [facility] on on 00:00: Medical 00 [place] Diabetes Diabetes Disease Active [facility] mellitus mellitus 08-13 [facility] type 2 in type 2 in 00:00: Medi cheryl obese obese 00 Center Communicat Communicat Disease Active [facility] ing ing 08-10 [facility] hydrocepha hydrocepha 00:00: Me dical erin erin 00 [place] Stroke Stroke Disease Active [facility] (cerebrum) (cerebrum) 08-08 [place] [facility] 00:00: Medical 00 [place] Stroke Stroke Disease Active [facility] (cerebrum) (cerebrum) 08-08 [place] [facility] 00:00: Medical 00 [place] LEFT-SIDED LEFT-SIDE Diagnosis Active 2020-08-09 Hilda[facility] WEAKNESS D WEAKNESS 5-17 21:56:00 l Active 00:00: Demar 08/02/2018 00 [facility] STROKE STROKE Diagnosis Active 2018-08-02 Me moria SYMPTOMS SYMPTOMS 5-17 16:42:00 l Active 00:00: Demar 08/02/2018 [facility] Left-sided Left-sided Disease Active 2018- U aprilers weakness weakness 3-04 ity of 00:00: [place] 00 Medical Branch ARTERIOVEN ARTERIOVE Diagnosis Active 2017-032018-01-22 Sheree OUS NOUS 0-31 13:57:00 l MALFORMATI MALFORMATI 00:00: Wilson davalos ON ON OF 00 BRAIN/ PT BRAIN/ PT Active 01/16/2018 [facility] Hyperlipid Hyperlipid Disease Active 2017-03 U nivers emia, emia, 0-23 ity of unspecifie [place]specifie [place] 00 Medical hyperlipid hyperlipid Br anch emia type emia type Q28.2 - Q28.2 - Diagnosis Active 2018-01-12 Memoria ARTERIOVEN ARTERIOVEN 9-11 15:34:00 l OUS OUS 00:01: Demar MALFORMATI MALFORMATI 00 ON ON OF Active 11/27/2017 OPID Demar FALL LESS FALL LESS Diagnosis Active 2017-11-12 Memoria THAN 8FT THAN 8FT 10-31 21:43:00 l Active 07:30: Demar 10/31/2017 00 [place] H/O H/O Diagnosis Active 2017-07-03 Mem oria ANEURYSM ANEURYSM 06-23 21:52:00 l Active 00:00: Demar 06/23/2017 00 [facility] ACUTE LEFT ACUTE Diagnosis Active 2017-10-25 Memoria FD/DYSARTH LEFT 06-23 15:26:00 l [place] FD/DYSARTH 00:00: Mauricio rizo [place] Active 00 06/23/2017 [facility], Rehabilita tion HYDROCEPHA HYDROCEPH Diagnosis Active 2017-07-17 Memoria ERIN ALUS 06-23 22:07:00 l Active 00:00: Demar 06/23/2017 00 [facility], [facility] OBSTRUCTIV OBSTRUCTI Diagnosis Active 2016-12-15 Memoria E CASER UP SHUNT VE CASER UP 12-15 21:35:00 l SHUNT 00:00: [place] Active 00 12/15/2016 [facility] ACUTE ACUTE Diagnosis Active 2016-12-19 Mem oria DIARRHEA DIARRHEA 12-15 05:20:00 l Active 00:00: Demar 12/15/2016 00 [facility] Depression Depression Disease Active U [...] 08:42:00 l 10/10/2016 00:00: Mauricio rizo 00 [place] Spasticity Spasticity Disease Active [facility] 3[facility]13 [facility] 00:00: Medical 00 [place] Malfunctio Malfunctio Disease Active [facility] of n of 3-13 [facility] intratheca intratheca 00:00: Me dical l infusion l infusion 00 Ce nter pump pump AVM AVM Diagnosis Active 2017-06-28 Mem oria RUPTURE RUPTURE 2-15 17:54:00 l Active 00:00: Demar 05/03/2016 00 [facility] BRAIN BRAIN Diagnosis Active 2016-05-24 Mem oria INJURY INJURY 2-15 11:49:00 l Active 00:00: [place] 05/03/2016 00 [facility] HEADACHE HEADACHE Diagnosis Active 2016-04-25 Memoria Active 04-25 15:25:00 l 04/25/2016 00:00: Mauricio rizo [address],[facility] EVAL FOR EVAL FOR Diagnosis Active 2016-05-02 Memoria IP IP Active 04-10 08:53:00 l 04/10/2016 00:00: Mauricio rizo [facility] 00 FALL FALL Diagnosis Active 2016-04-08 Mem oria Active 04-08 16:24:00 l 04/08/2016 00:00: Mauricio rizo 00 [facility] LEFT LEFT Diagnosis Active 2016-03-31 Mem oria SHOULDER SHOULDER 03-31 18:42:00 l PAIN PAIN 00:00: [place] Active 00 03/31/2016 [place] I63.9 - I63.9 - Diagnosis Active 2016-05-08 Memoria "CEREBRAL "CEREBRAL 03-27 16:00:00 l INFARCTION INFARCTION 00:01: Wilson davalos , , 00 UNSPECIFI" UNSPECIFI" Active 03/27/2016 OPID Demar F/U F/U Diagnosis Active 2015-032016-02-09 Mem oria Active 04-05 11:12:00 l 02/04/2016 00:00: Mauricio rizo [facility] 00 SHUNT SHUNT Diagnosis Active 2015-12-14 Me moria MALFUNCTIO MALFUNCTIO 12-07 22:07:00 l N N Active 00:00: Demar 12/08/2015 00 [facility] Acquired Acquired Disease Active [facility] equinovaru equinovaru 11-07 [place] [facility] s s 00:00: Medical deformity deformity 00 Cent er Cognitive Cognitive Disease Active [facility] deficit, deficit, 11-02 Colleg e post-strok post-strok 00:00: of e e 00 Medicin e Hypertroph Hypertroph Disease Active [facility] of ic scar of 11-02 Co llege skin skin 00:00: of 00 Medicin e Visual Visual Disease Active [facility] disturbanc disturbanc 11-02 Co llege [...] 00 Medicin e Spastic Spastic Disease Active [facility] hemiplegia hemiplegia 7-05 Co llege affecting affecting 00:00: of nondominan [...] 06:25:00 l Active 00:00: Demar 08/13/2015 00 [facility] ITB TRIAL ITB TRIAL Diagnosis Active 2015-08-06 Memoria Active 07-26 07:54:00 l 07/27/2015 00:00: Mauricio rizo [facility] 00 ARTERIOVEN ARTERIOVE Diagnosis Active 2015-08-02 Memoria OUS NOUS -29 05:18:00 l MALFORMATI MALFORMATI 00:00: Wilson davalos ON Q28.2 ON Q28.2 00 Active 07/16/2015 [facility] PHENOL PHENOL Diagnosis Active 2015-05-24 M emoria Active 04-30 08:49:00 l 04/30/2015 00:00: Mauricio rizo [facility] 00 STROKE STROKE Diagnosis Active 2015-06-07 Me moria Active 04-29 11:45:00 l 04/29/2015 00:00: Mauricio rizo [facility] 00 RIGHT CPA RIGHT CPA Diagnosis Active 2015-04-28 Memoria Active 04-15 07:25:00 l 04/15/2015 00:00: Mauricio rizo [address] EVAL-IP EVAL-IP Diagnosis Active 2015-04-28 Memoria STROKE STROKE 04-07 12:15:00 l Active 00:00: Demar 04/07/2015 00 [facility] STROKE AND STROKE Diagnosis Active 2015-01-10 Memoria BI AND BI 11-06 16:16:00 l Active 00:00: Demar 11/06/2014 00 [facility] HEAD PAIN HEAD PAIN Diagnosis Active 2014-04-09 Memoria Active 04-05 22:00:00 l 04/05/2014 00:00: Mauricio rizo 00 [place] 331.3 - 331.3 - Diagnosis Active 2013-032014-06-15 Memoria COMMUNICAT COMMUNICAT 04-11 17:28:00 l HYDR HYDR 00:01: Demar Active 00 02/09/2014 JAXSON Benz Communicat Communica Problem Active 2013-032021-11-17 Memoria ing ting 04-08 00:32:03 l hydrocepha hydrocepha 00:00: [place] davalos erin erin 00 (disorder) (disorder) Active 02/06/2014 Problem 11/17/2021 Data migrated from [facility] on 11/10/14. Joan Neuro,[facility], [facility], MELISSA Ben[place], [place], Boris Zuniga [facility] [place] 738.19 - 738.19 - Diagnosis Active 2013-032014-06-14 Memoria ACQ HEAD ACQ HEAD 10:21:00 l DEFORM DEFORM 00:01: Demar Active 00 01/15/2014 MELISSA Benz 852.20 852.20 Diagnosis Active 2013-032014-02-22 Me moria Active 15:23:00 l 01/07/2014 00:00: Mauricio rizo [address] BRAIN STEM BRAIN Diagnosis Active 2014-01-15 Memoria AV STEM AV 09-29 16:10:00 l MALFORMATI MALFORMATI 00:00: He anoop ON ON Active 09/29/2013 [facility] SUBARACHNO SUBARACHN Diagnosis Active 2015-05-29 Memoria ID OID 03-19 12:16:00 l HEMMORHAGE HEMMORHAGE 23:59: He rmann Active 03/19/2000 [facility] Presence Presence Problem 2018-05-21 Memoria of of 15:39:31 l cerebrospi cerebrospi He rmann nal fluid nal fluid drainage drainage device device 05/21/2018 [facility], [place] Body mass Body mass Problem 2018-05-21 Memoria index index 15:39:31 l (BMI) (BMI) Demar 37.0-37.9, 37.0-37.9, adult adult 05/21/2018 [place] Hemiplegia Hemiplegi Problem 2017-10-05 Memoria , a, 06:57:47 l unspecifie unspecifie Wilson davalos d d affecting affecting left left nondominan nondominan t side t side 10/05/2017 [facility] Other Other Problem 2017-10-05 [place] specified specified 06:57:47 l anxiety anxiety Demar disorders disorders 10/05/2017 [facility] NIHSS NIHSS Problem 2017-10-05 Memor ia score 7 score 7 06:57:47 l 10/05/2017 Mauricio rizo [facility] Facial Facial Problem 2017-10-05 [place] weakness weakness 06:57:47 l 10/05/2017 Mauricio rizo [facility] Dysarthria Dysarthri Problem 2017-10-05 Memoria and a and 06:57:47 l anarthria anarthria Herm shelton 10/05/2017 [facility] Type 2 Type 2 Problem 2017-10-05 [place] diabetes diabetes 06:57:47 l mellitus mellitus Mauricio n with with hyperglyce hyperglyce cliff [place] 10/05/2017 [facility] Cocaine Cocaine Problem 2017-10-05 Me moria abuse, abuse, 06:57:47 l uncomplica uncomplica He anoop yanely yanely 10/05/2017 [facility] Enlarged Enlarged Problem 2017-10-05 Memoria prostate prostate 06:57:47 l without without [place] lower lower urinary urinary tract tract symptoms symptoms 10/05/2017 [facility] Epilepsy, Epilepsy, Problem 2017-10-05 Memoria unspecifie unspecifie 06:57:47 l d, not d, not [place] intractabl intractabl e, without e, without status status epilepticu epilepticu s s 10/05/2017 [facility] Illness, Illness, Problem 2019-02-09 Memoria unspecifie unspecifie 23:27:13 l d d Demar 02/09/2019 [facility] Encephalop Encephalo Problem 2019-02-23 Memoria diegoypachecoy, 23:08:45 l unspecifie unspecifie He rmann d d 02/23/2019 [facility] Congenital Congenita Problem 2018-08-12 Memoria malformati l 11:12: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 Mauricio rizo peripheral on of vascular peripheral system, vascular unspecifie system, d unspecifie d 08/12/2018 [facility] Other Other Problem 2018-08-12 [place] specified specified 11:12:30 l disorders disorders Herm shelton of brain of brain 08/12/2018 [facility] Arterioven Arteriove Problem 2016-07-14 Memoria ous nous 00:12:22 l malformati malformati He anoop on, site on, site unspecifie unspecifie d d 07/14/2016 [facility] Aneurysm Aneurysm Problem Resolve 2021-11-17 Memoria (disorder) (disorder) d 00:32:03 l Resolved [place] Problem 11/17/2021 Joan Neuro,[facility], [facility], MELISSA Benz,[facility], Boris Zuniga [facility], [facility], [place] Gastrointe Gastroint Problem Resolve 2021-11-17 Memoria stinal estinal d 00:32:03 l hemorrhage hemorrhage He rmann (disorder) (disorder) Resolved Problem 11/17/2021 [facility], [facility], MELISSA Benz,[facility], MELISSA Nieves,[facility], [facility], [place] Increased Increased Problem Resolve 2021-11-17 Memoria frequency frequency d 00:32:03 l of of [place] urination urination (finding) (finding) Resolved Problem 11/17/2021 DUE TO CASER UP SHUNT MALFUNCTIO N [facility], [facility], MELISSA Benz,[facility], MELISSA Nieves,[facility], [facility], [place] None None Problem Resolve 2021-11-17 [place] (qualifier (qualifier d 00:32:03 l value) value) [place] Resolved Problem 11/17/2021 [facility], [facility], MELISSA Benz,[facility], MELISSA Nieves,[facility] MELISSA Mederos,[facility], [facility], [place] Obstructiv Obstructi Problem Resolve 2021-11-17 Memoria e sleep ve sleep d 00:32:03 l apnea apnea Demar syndrome syndrome (disorder) (disorder) Resolved Problem 11/17/2021 [facility], [facility], MELISSA Benz,[facility], MELISSA Nieves,[facility], [facility] [place] Anxiety Anxiety Problem Active 2021-11-17 Me moria (finding) (finding) 00:32:03 l Active Demar Problem 11/17/2021 [facility], [facility], MELISSA Benz,[facility], MELISSA Nieves,[facility] MELISSA Mederos,[facility], [facility] [place] Dysarthria Dysarthri Problem Active 2021-11-17 Memoria (finding) a 00:32:03 l (finding) [place] Active Problem 11/17/2021 [facility], [facility], MELISSA Benz, MELISSA Nieves,[facility], [facility], [place] Headache Headache Problem Active 2021-11-17 Memoria (finding) (finding) 00:32:03 l Active [place] Problem 11/17/2021 DUE TO CASER UP SHUNT MALFUNCTIO N [facility] Neuro,[facility], [facility], MELISSA Benz,[facility], MELISSA Nieves,[facility], [facility], [place] Hemiparesi Hemipares Problem Active 2021-11-17 Memoria s is 00:32:03 l (disorder) (disorder) He rmann Active Problem 11/17/2021 [facility], [facility], MELISSA Benz, MELISSA Nieves,[facility], [facility], [place] Hypertensi Hypertens Problem Active 2021-11-17 Memoria ve dania 00:32:03 l disorder, disorder, Herm shelton systemic systemic arterial arterial (disorder) (disorder) Active Problem 11/17/2021 [facility], [facility], MELISSA Benz,[facility], MELISSA [place],[facility] MELISSA Mederos,[facility], [facility], [place] Obesity Obesity Problem Active 2021-11-17 Me moria (disorder) (disorder) 00:32:03 l Active [place] Problem 11/17/2021 [facility], [facility], MELISSA Benz,[facility], MELISSA Nieves,[facility], [facility], [place] Unsteady Unsteady Problem Active 2021-11-17 Memoria when when 00:32:03 l standing standing Mauricio n (finding) (finding) Active Problem 11/17/2021 DUE TO CASER UP SHUNT MALFUNCTIO N [facility], [facility], MELISSA Benz,[facility], MELISSA Nieves,[facility], [facility], [place] Diabetes Diabetes Problem Active 2021-11-17 Memoria mellitus mellitus 00:32:03 l type 2 type 2 [place] (disorder) (disorder) Active Problem 11/17/2021 Automatica lly added by Discern Expert with order of Add Problem Diabetes Type II on August 26, 2019 10:43:00 CDT with order ID: [id number] 5.0 entered by PHILLIP ELLISON, MISSY HERNANDEZ. [facility], MELISSA Nieves Disease of Disease Problem Active 2021-11-17 Memoria brain of brain 00:32:03 l (disorder) (disorder) He rmann Active Problem 11/17/2021 [facility], MELISSA Nieves,[facility] Finding of Finding Problem Active 2021-11-17 Memoria functional of 00:32:03 l performanc functional He rmann e and performanc activity e and (finding) activity (finding) Active Problem 11/17/2021 [facility], MELISSA Nieves,[facility] Leukocytos Leukocyto Problem Active 2021-11-17 Memoria is sis 00:32:03 l (disorder) (disorder) He rmann Active Problem 11/17/2021 [facility] [facility], MELISSA Nieves,[facility] Pneumonia Pneumonia Problem Active 2021-11-17 Memoria (disorder) (disorder) 00:32:03 l Active [place] Problem 11/17/2021 [facility], MELISSA Nieves,[facility] Systemic Systemic Problem Active 2021-11-17 Memoria infection infection 00:32:03 l (disorder) (disorder) He rmann Active Problem 11/17/2021 [facility] [place] [facility], MELISSA Nieves,[facility] ANESTHESIA ANESTHESI Diagnosis Active 2018-10-03 Memoria OF SKIN A OF SKIN 14:21:00 l Active Mauricio n [facility] ENCEPHALOP ENCEPHALO Diagnosis Active 2019-02-26 Memoria ATHY, RUIZ, 22:03:00 l UNSPECIFIE UNSPECIFIE He rmann D D Active [facility]arcel[facility] ANOXIC ANOXIC Diagnosis Active 2019-05-24 Me moria BRAIN BRAIN 16:03:00 l DAMAGE, DAMAGE, Demar NOT NOT ELSEWHERE ELSEWHERE CLASS CLASS Active [...] UNSPECIFIE 22:19:00 l D D Active Demar [facility], [facility] OTHER OTHER Diagnosis Active 2020-06-25 Mem oria MUSCLE MUSCLE 14:08:00 l SPASM SPASM Demar Active [facility] CRAMP AND CRAMP AND Diagnosis Active 2020-06-25 Memoria SPASM SPASM 14:08:00 l Active Mauricio rizo [facility] WEAKNESS WEAKNESS Diagnosis Active 2020-08-09 Memoria Active 21:56:00 l [facility] ADMINISTRT ADMINISTR Diagnosis Active 2014-01-15 Memoria VE ENCOUNT TVE 16:10:00 l NOS ENCOUNT [place] NOS Active [facility] COMMUNICAT COMMUNICA Diagnosis Active 2014-02-02 Memoria HYDROCEPHA T 22:14:00 l ERIN HYDROCEPHA Mauricio MITCHELL Active [facility] ARTERIOVEN ARTERIOVE Diagnosis Active 2018-01-22 Memoria OUS NOUS 13:57:00 l MALFORMATI MALFORMATI He rmann ON OF ON OF CEREBRAL V CEREBRAL V Active [facility] OTHER OTHER Diagnosis Active 2016-01-05 Me moria CEREBROVAS CEREBROVAS 22:23:00 l CULAR CULAR Demar DISEASE DISEASE Active [facility] LEFT SIDE LEFT SIDE Diagnosis Active 2015-11-12 Memoria HEMIPLEGIA HEMIPLEGIA 16:47:00 l Active Mauricio rizo [facility] Medical [place] ARTERIOVEN ARTERIOVE Diagnosis Active 2017-06-28 Memoria OUS NOUS 17:54:00 l MALFORMATI MALFORMATI He rmann ON, SITE ON, SITE UNSPECI UNSPECI Active [facility] COMMUNICAT Diagnosis Active 2016-10-17 Memoria ING COMMUNICAT 08:42:00 l HYDROCEPHA ING Mauricio rizo ERIN HYDROCEPHA ERIN Active [facility] DIARRHEA, DIARRHEA, Diagnosis Active 2016-12-19 Memoria UNSPECIFIE UNSPECIFIE 05:20:00 l D D Active Demar [facility] OTHER OTHER Diagnosis Active 2017-10-25 Mem oria MALAISE MALAISE 15:26:00 l Active Mauricio rizo [facility] HYDROCEPHA HYDROCEPH Diagnosis Active 2017-07-17 Memoria ERIN, ALUS, 22:07:00 l UNSPECIFIE UNSPECIFIE He rmann D D Active [facility] Elevated Elevated Problem 2018-05-21 Memoria white white 15:39:31 l blood cell blood cell He rmann count, count, unspecifie unspecifie d d 05/21/2018 [facility] [place] Altered Altered Problem 2018-05-21 Me moria mental mental 15:39:31 l status, status, [place] unspecifie unspecifie d d 05/21/2018 [place] Encounter Encounter Problem 2018-05-21 Memoria for for 15:39:31 l immunizati immunizati He rmann on on 05/21/2018 [place] Essential Essential Problem 2018-05-21 Memoria (primary) (primary) 15:39:31 l hypertensi hypertensi He rmann on on 05/21/2018 [facility] [place] Type 2 Type 2 Problem 2018-05-21 [place] diabetes diabetes 15:39:31 l mellitus mellitus Mauricio n without without complicati complicati ons ons 05/21/2018 [place] Hemiplegia Hemiplegi Problem 2018-05-21 Katharina and 15:39:31 l hemiparesi hemiparesi He rmann s s following following cerebral cerebral infarction infarction affecting affecting left left non-domina non-domina nt side nt side 05/21/2018 [place] Dysarthria Dysarthri Problem 2018-05-21 Memoria following a 15:39:31 l cerebral following Chiquita nn infarction cerebral infarction 9 [place] Other Other Problem 2018-05-21 Memor ia muscle muscle 15:39:31 l spasm spasm [place] 05/21/2018 [place] Obstructiv Obstructi Problem 2018-05-21 Memoria e sleep ve sleep 15:39:31 l apnea apnea [place] (adult) (adult) (pediatric (pediatric ) ) 05/21/2018 [facility] [place] Paraplegia Paraplegi Problem 2018-05-21 tere [place], 15:39:31 l unspecifie unspecifie He rmann d d 05/21/2018 [place] Obesity, Obesity, Problem 2018-05-21 Memoria unspecifie unspecifie 15:39:31 l d d Demar 05/21/2018 [place] Major Major Problem 2018-05-21 [place] depressive depressive 15:39:31 l disorder, disorder, Herm shelton single single episode, episode, unspecifie unspecifie d d 05/21/2018 [place] Anxiety Anxiety Problem 2018-05-21 Co moria disorder, disorder, 15:39:31 l unspecifie unspecifie He rmann d d 05/21/2018 [place] Hyperlipid Hyperlipi Problem 2018-05-21 Memoria ethan demia, 15:39:31 l unspecifie unspecifie He rmann d d 05/21/2018 [facility] [place] Fall from Fall from Problem 2018-05-21 Memoria bed, bed, 15:39:31 l initial initial Demar encounter encounter 05/21/2018 [place] Presence Presence Problem 2018-05-21 Memoria of other of other 15:39:31 l specified specified Herm shel[place] functional functional implants implants 05/21/2018 [place] halfway halfway Problem 2018-05-21 Memoria (current) (current) 15:39:31 l use of use of Demar oral oral hypoglycem hypoglycem ic drugs ic drugs 05/21/2018 [facility] [place] lobsterman halfway Problem 2018-05-21 Memoria (current) (current) 15:39:31 l use of use of [place] aspirin aspirin 05/21/2018 [place] [id number] Current Problem Common moderate Spirit episode of - [facility] major [facility] Center prior episode [id number] Hemiplegia Problem C ommon 26022 affecting Spirit left - [facility] nondominan t [facility] unspecifie Medica l d Center etiology, unspecifie d hemiplegia type [id number] Hemorrhagi Problem Co mmon c stroke Spirit - [facility] [id number] Mixed Problem Common hyperlipid Spirit emia - [facility] [id number] Type 2 [place] [address] diabetes Spirit mellitus - [facility] with [facility] unspecifie Center d whether ad terminal makeup operator insulin use [id number] Chronic Problem Commo n pain Spirit syndrome - [facility] [id number] Wheelchair Problem Co mmon bound Spirit - [facility] [id number] Primary Problem Commo n osteoarthr Spirit itis of - [facility] left ankle [facility] [id number] Bipolar Problem Commo n affective Spirit disorder, - [facility] currently [facility] [id number] Primary Problem Common insomnia Spirit - [facility] [id number] MIRZA Problem Common (generaliz Spirit ed anxiety - [facility] disorder) [facility] [id number] Seizures Problem Commo n Spirit - [facility] [id number] Cerebral Problem Comm on arterioven Spirit ous - CHI malformati [facility] History of Past Illness Condition Condition Condition Status Onset Resolution Last Treating Co mments Source Name Details Category Date Date Treatment Clinician Date Arterioven Problem 2017-032018-08-12 2018-08-12 Memoria ous Arterioven 03-28 11:12:30 11:12:30 l malformati ous 04:27: Mauricio rizo on of malformati 21 cerebral on of vessels cerebral vessels 01/26/2018 08/12/2018 [facility] Communicat Communica Problem 2018-05-21 2018-05-21 Memoria ing ting 11-13 15:39:31 15:39:31 l hydrocepha hydrocepha 03:38: He rmann erin erin 33 11/13/2017 05/21/2018 [facility] [place] Transient Transient Problem 2017-10-05 2017-10-05 Memoria cerebral cerebral 07-10 06:57:47 06:57:47 l ischemic ischemic 03:03: Mauricio rizo attack, attack, 36 unspecifie unspecifie d d 07/10/2017 10/05/2017 [facility] Discharge Discharge Problem 2016-04-28 2016-04-28 Memoria Diagnosis: Diagnosis: 04-25 04:57:17 04:57:17 l Headache Headache 06:00: Mauricio rizo 04/25/2016 00 04/28/2016 [facility] Discharge Discharge Problem 2016-04-11 2016-04-11 Memoria Diagnosis: Diagnosis: 04-08 02:46:17 02:46:17 l Acute pain Acute pain 06:00: He rmann of left of left 00 shoulder shoulder 04/08/2016 04/11/2016 [facility] Discharge Problem 2016-04-11 2016-04-11 Memoria Diagnosis: Discharge 04-08 02:46:17 02:46:17 l Closed Diagnosis: 06:00: Mauricio rizo comminuted Closed 00 fracture comminuted of left fracture humerus of left humerus 04/08/2016 04/11/2016 [facility] Discharge Discharge Problem 2016-04-03 2016-04-03 Memoria Diagnosis: Diagnosis: 1- 05:33:49 05:33:49 l Fracture Fracture 06:00: Mauricio n of humeral of humeral 00 head, head, closed closed 03/31/2016 7 [facility] Discharge Discharge Problem 2016-04-03 2016-04-03 Memoria Diagnosis: Diagnosis: 1 05:33:49 05:33:49 l Closed Closed 06:00: Demar fracture fracture 00 dislocatio dislocatio n of left n of left shoulder shoulder 03/31/2016 04/03/2016 [facility] Discharge Discharge Problem 2016-04-03 2016-04-03 Memoria Diagnosis: Diagnosis: 1 05:33:49 05:33:49 l Accidental Accidental 06:00: He rmann fall fall 00 03/31/2016 04/03/2016 [facility] Discharge Discharge Problem 2014-09-20 [facility]: Diagnosis: 09-17 04:52:23 04:52:23 l Headache Headache 05:00: Mauricio rizo 09/17/2014 00 09/20/2014 [facility] Allergies, Adverse Reactions, Alerts Allergy Allergy Status Severity Reaction(s) Onset Inactive Treating Comm ents Source Name Type Date Date Clinician NO KNOWN Drug Active [facility] ALLERGANA Class ity of S [facility] NO KNOWN Allergy Active [facility] Social History Social Habit Start Date Stop Date Quantity Comments Source History of Common Spirit - Tobacco Use [facility] Alcohol intake 2021-12-14 2021-12-14 Current [facility] St Yana es 00:00:00 00:00:00 non-drinker of Medical Ce nter alcohol (finding) Exposure to 2021-07-25 2021-08-24 Not sure [facility] SARS-CoV-2 00:00:00 13:21:00 (event) Tobacco use and 2015-10-29 2015-10-29 Never used [facility] Winsome kes exposure 00:00:00 00:00:00 [facility] Social History 2013-09-30 2013-09-30 [facility] abraham 07:09:16 07:09:16 Sex Assigned At [address] [facility] kes 00:00:00 00:00:00 [facility] Center Smoking Status Start Date Stop Date Source Tobacco smoking [facility] consumption unknown Former Smoker 2021-12-20 00:00:00 2021-12-20 Common Spiri [facility] Ce nter Never smoked tobacco [facility]ema ege of Medicine Medications Ordered Filled Start Stop Current Ordering Indication Dosage Frequency Signature Comments Components Source Medication Medication Date Date Medication? Clinician (SIG) Name Name gabapentin 2021-03 Yes [id number] 600mg Take 600 [facility] (NEURONTIN) 0-12 mg by [place] 600 MG 09:36: mouth. of tablet 52 Medicin e levetiracet 2021-03 Yes [id number] 500mg Take 500 [facility] am (KEPPRA) 0-12 mg by [place] 500 MG 09:36: mouth two of tablet 52 times Medicin daily. e Tamsulosin 2021-03 Yes [id number] Take by [facility] HCl 0.4 MG 0-12 mouth. College CAPS 09:36: of 52 Medicin e doxepin 2021-03 Yes [id number] 10mg Take 10 mg [facility] (SINEQUAN) 0-12 by mouth Colle ge 10 MG 09:36: nightly. of capsule 52 Medicin e sulfamethox 2021-03- No [id number] 1{tbl} Take 1 [facility] azole-trime 0-12 10-23 Tablet by Co llege thoprim 00:00: 04:59 mouth two of (BACTRIM 00 :00 times Medicin DS, SEPTRA daily for e DS) 800-160 10 days. MG per tablet atorvastati Yes 80mg QD Take [address] n (LIPITOR) 9-28 by mouth Luke s 20 MG 14:31: daily. Medical tablet 16 Center gabapentin Yes 300mg Q.[id number] Take [address] (NEURONTIN) 9-28 [id number] mg by L ukes 300 MG 14:31: [...] 50 MG 14:31: nightly. Medical tablet 16 [place] sertraline 2021-0 Yes 100mg QD Take [address] (ZOLOFT) 9-28 mg by [facility] 100 MG 14:31: mouth Medical tablet 16 daily. [place] atorvastati 2021-0 Yes 80mg QD Take [address] n (LIPITOR) 9-28 by mouth Luke s 20 MG 14:31: daily. Medical tablet 16 [place] gabapentin 2021-0 Yes 300mg Q.[id number] Take [address] (NEURONTIN) 9-28 [id number] mg by L ukes 300 MG 14:31: 3D mouth 3 Medical capsule 16 (three) Center times daily. metFORMIN 2-0 Yes 1000mg Take 1,[address] (GLUCOPHAGE [...] 24 hr 16 daily. Center capsule traZODone 2022-0 Yes 50mg QD Take [address] (DESYREL) 9-28 by mouth [facility] 50 MG 14:31: nightly. Medical tablet 16 Center sertraline 0 Yes 100mg QD Take [address] (ZOLOFT) 9-28 mg by [facility] 100 MG 14:31: mouth Medical tablet 16 daily. [place] atorvastati 0 Yes 80mg QD Take [address] n (LIPITOR) 9-28 by mouth Luke s 20 MG 14:31: daily. Medical tablet 16 [place] gabapentin 2021-0 Yes 300mg Q.[id number] Take [address] (NEURONTIN) 9-28 [id number] mg by L ukes 300 MG 14:31: 3D mouth 3 Medical capsule 16 (three) Center times daily. metFORMIN 2021-0 Yes 1000mg Take 1,[address] (GLUCOPHAGE 9-28 mg by [facility]ukes ) 1000 MG 14:31: mouth 2 Medic al tablet 16 (two) Center times daily with breakfast and dinner. levETIRAcet 2021-0 Yes 500mg Q.5D Take [address] am (KEPPRA) 9-28 mg by [facility] 500 MG 14:31: mouth 2 Medical tablet 16 (two) Center times daily. tamsulosin 0 Yes .4mg QD Take 0.[address] (FLOMAX) 9-28 mg by [facility]ukes 0.4 mg Cap 14:31: mouth Medica l 24 hr 16 daily. [place] capsule traZODone 0 Yes 50mg QD Take [address] (DESYREL) 9-28 by mouth [facility] 50 MG 14:31: nightly. Medical tablet 16 [place] sertraline 0 Yes 100mg QD Take [address] (ZOLOFT) 9-28 mg by [facility] 100 MG 14:31: mouth Medical tablet 16 daily. [place] atorvastati 0 Yes 80mg QD Take [address] n (LIPITOR) 9-28 by mouth Luke s 20 MG 14:31: daily. Medical tablet 16 [place] gabapentin 2021-0 Yes 300mg Q.[id number] Take [address] (NEURONTIN) 9-28 [id number] mg by L ukes 300 MG 14:31: 3D mouth 3 Medical capsule 16 (three) Center times daily. metFORMIN 2022-0 Yes 1000mg Take 1,[address] (GLUCOPHAGE 9-28 mg by [facility] ) 1000 MG 14:31: mouth 2 Medic al tablet 16 (two) Center times daily with breakfast and dinner. levETIRAcet 2021-0 Yes 500mg Q.5D Take [address] am (KEPPRA) 9-28 mg by [facility] 500 MG 14:31: mouth 2 Medical tablet 16 (two) Center times daily. tamsulosin 2021-0 Yes .4mg QD Take 0.[address] (FLOMAX) 9-28 mg by [facility]ukes 0.4 mg Cap 14:31: mouth Medica l 24 hr 16 daily. Center capsule traZODone 2021-0 Yes 50mg QD Take [address] (DESYREL) 9-28 by mouth [facility] 50 MG 14:31: nightly. Medical tablet 16 Center sertraline 2021-0 Yes 100mg QD Take [address] (ZOLOFT) 9-28 mg by [facility] 100 MG 14:31: mouth Medical tablet 16 daily. Center docusate 2021-0 2021- No 100mg Q.5D Take 1 [facility]I S t sodium - 10-07 capsule [facility] (COLACE) 00:00: 23:59 (100 mg [...] Q.5D Take 1 [facility]I S t sodium 9-27 10-07 capsule [facility] (COLACE) 00:00: 23:59 (100 mg Medic al 100 MG 00 :00 total) by Center capsule mouth 2 (two) times daily for 10 days. acetaminoph 2021-2021- No 1{tbl} Take [address] en-codeine 9- 10-07 tablet by Yana es (Tylenol-Co 00:00: 23:59 mouth Medi cheryl deine #3) 00 :00 every 4 Center 300-30 mg (four) per tablet hours as needed for up to 10 days. Max Daily Amount: 6 tablets docusate 2021-0 2021- No 100mg Q.5D Take 1 CHI S t sodium -12 01- capsule [facility] (COLACE) 00:00: 23:59 (100 mg Medic al 100 MG 00 :00 total) by Center capsule mouth 2 (two) times daily for 10 days. acetaminoph 2021-2021- No 1{tbl} Take [address] en-codeine 12-13 tablet by Yana es (Tylenol-Co 00:00: 23:59 mouth Medi cheryl deine #3) 00 :00 every 4 Center 300-30 mg (four) per tablet hours as needed for up to 10 days. Max Daily Amount: 6 tablets docusate 2021-2021- No 100mg Q.5D Take 1 [facility]I S t sodium 12-13 capsule [facility] (COLACE) 00:00: 23:59 (100 mg Medic al 100 MG 00 :00 total) by Center capsule mouth 2 (two) times daily for 10 days. acetaminoph 2021- No 1{tbl} Take [address] en-codeine 12-13 tablet by [place]ana es (Tylenol-Co 00:00: 23:59 [...] date: 12/14/21 14:59:00 CDT gabapentin 2021-0 Yes [id number] 600mg Take 600 [facility] (NEURONTIN) 6-16 mg by [place] 600 MG 15:05: mouth. of tablet 18 Medicin e levetiracet 2021-0 Yes [id number] 500mg Take 500 [facility] am (KEPPRA) 6-16 mg by [place] 500 MG 15:05: mouth two of tablet 18 times Medicin daily. e Tamsulosin Yes [id number] Take by [facility] HCl 0.4 MG 6-16 mouth. College CAPS 15:05: of 18 Medicin e doxepin 2021-0 Yes [id number] 10mg Take 10 mg [facility] (SINEQUAN) 6-16 by mouth Colle ge 10 MG 15:05: nightly. of capsule 18 Medicin e ondansetron 2021- No 4mg 4 mg, Slow Univers (ZOFRAN 08-25- IV Push, ity of (PF)) 14:15: 14:10 ONCE, 1 [place] injection 4 00 :00 dose, On Medi cheryl mg Abbie 08/25/21 Branch at 0915, LEW ondansetron Yes [id number] 4mg Take 1 Univers 4 mg - tablet by ity of disintegrat 00:00: mouth [place] ing tablet 00 every 4 Medica l (four) Branch hours as needed for Nausea and Vomiting (N/V). ondansetron Yes [id number] 4mg Take 1 Univers 4 mg - tablet by ity of disintegrat 00:00: mouth [place] ing tablet 00 every 4 Medica l (four) Branch hours as needed for Nausea and Vomiting (N/V). methylpredn Yes 60mg 60 mg, Univ ers isolone sod 08-22 Slow IV ity o f succ 14:00: Push, [place] (SOLU-MEDRO 00 DAILY, Medica l L) First dose Branch injection (after 60 mg last modificati on) on Sun08/22/21 at 0900, Until Discontinu ed, Routine hydrocortis 2021- No 10mg Take 10 mg Univers one 10 mg 08-22 by mouth ity o f tablet 12:11: 00:00 every [place] 03 :00 morning. Medical Branch methylPREDN 2021-0 Yes [id number] Take by Univers ISolone 4 - mouth ity of mg tablets 00:00: SEE-INSTRU [place] 00 CTIONS. Medical follow Branch package directions methylPREDN 2021-0 Yes [id number] Take by Univers ISolone 4 - mouth ity of mg tablets 00:00: SEE-INSTRU [place] 00 CTIONS. Medical follow Branch package directions methylPREDN Yes [id number] Take by [facility] ISolone 4 - mouth ity of mg tablets 00:00: SEE-INSTRU [place] 00 CTIONS. Medical follow Branch package directions methylPREDN Yes [id number] Take by [facility] ISolone 4 -06 mouth ity of mg tablets 00:00: SEE-INSTRU [place] 00 CTIONS. Medical follow Branch package directions docusate Yes 100mg 100 mg, Unive rs (COLACE) 08-21 Oral, ity of capsule 100 21:15: DAILY, [place] mg 00 First dose Medical on [place] Branch 08/21/21 at 1615, Until Discontinu ed, Routine furosemide No 40mg 40 mg, Univ ers (LASIX) 08-21 0605 Slow IV ity of injection 21:15: 22:41 Push, [place] 40 mg 00 :00 ONCE, 1 Medical dose, On Branch [place] 08/21/21 at 1615, Routine sodium No 4mL 4 mL, Univers chloride 7% 08-2108 Inhalation i ty of (HYPER-OREN) 01:00: 00:59 [...] Medical L) First dose Branch injection on Abbie 60 mg 08/18/21 at 1015, Until Discontinu ed, Routine iopamidol 2021- No [id number] 80mL 80 mL, U nivers (ISOVUE 08-18 Intravenou ity o f 370-500 mL) 05:38: 05:38 s, ONCE, 1 [place] injection 00 :00 dose, On Medica l 80 mL Abbie 08/18/21 Branch at 0100, Routine ceFEPIme No 2000mg 2,000 mg, U nivers (MAXIPIME) 08-17 IV ity of 2,000 mg in 02:45: 20:05 [place], [place] NaCl 0.9% 00 :04 Q8H ABX, Medica l (NS) 50 mL First dose Bra [facility] MINI-BAG on Sun08/16/21 at 2145, Until Discontinu ed, Administer over 240 Minutes, 50 mL
Reas on for Anti-Infec tive: Empiric Therapy for Suspected Infection< br>Empiric Therapy Site: Respirator y
Durat ion of therapy: 7 days ceFEPIme No 2000mg 2,000 mg, U nivers (MAXIPIME) 08-16 IV ity of 2,000 mg in 19:15: 22:36 [facility], [place] NaCl 0.9% 00 :00 ONCE, 1 Medical (NS) 50 mL dose, On Bran h MINI-BAG Sun08/16/21 at 1415, Administer over 240 Minutes, 50 mL
Reas on for Anti-Infec tive: Empiric Therapy for Suspected Infection< br>Empiric Therapy Site: Respirator y
Durat ion of therapy: 7 days vancomycin 2022-0 2022- No 15mg/kg 1,500 mg Univers 1500 mg in 08-16 (rounded ity of NS 500 mL 19:00: 21:27 from [place] IV 00 :56 1,837.5 mg Medical Piggyback = 15 mg/kg Bran ch RTU 1,500 ?122.5 mg kg), IV Piggyback, Q12H ABX, First dose on Sun08/16/21 at 1400, Until Discontinu ed, Administer over 90 Minutes
Reason for Anti-Infec tive: Empiric Therapy for Suspected Infection< br>Empiric Therapy Site: Respirator y
Durat ion of therapy: 7 days lidocaine 2021-0 Yes 2{patch 2 Patch, U nivers (LIDODERM) 08-16 } Topical, ity o f 5 % (700 14:00: Administer [place] as mg/patch) 00 over 12 Medical patch 2 Hours, Branch Patch DAILY, First dose on Sun08/16/21 at 0900, Until Discontinu ed, Routine ipratropium Yes 3mL 3 mL, Unive rs -albuteroL 5-30 Inhalation ity of (DUONEB) 21:00: , QID, [place] 0.5 mg-3 00 First dose Medic al mg(2.5 mg on Sun base)/3 mL 08/15/21 at nebulizer 1600, solution 3 Until mL Discontinu ed, Routine methocarbam 0 Yes 500mg 500 mg, Un hunter oL [...] Discontinu ed, Routine, Pain (scale 7-10) HYDROcodone 2021-0 Yes 1{tbl} 1 tablet, Univers -acetaminop 5-30 Oral, ity of hen (NORCO) 16:54: Q4HPRN, [place] as 10-325 mg 30 Starting Medica l tablet 1 on Mon Branch tablet 08/15/21 at 1154, Until Discontinu ed, Routine, Pain (scale 4-6) lisinopriL Yes 5mg 5 mg, Univer s (PRINIVIL,Z 08-14 Oral, ity of ESTRIL) 14:00: DAILY, [place] tablet 5 mg 00 First dose Me dical on [facility] 08/14/21 at 0900, Until Discontinu ed, Routine tamsulosin Yes .4mg 0.4 mg, Univ ers (FLOMAX) 08-14 Oral, ity of capsule 0.4 14:00: DAILY, [place] mg 00 First dose Medical on [facility] 08/14/21 at 0900, Until Discontinu ed, Routine SERTraline Yes 100mg 100 mg, Uni vers (ZOLOFT) 08-14 Oral, QAM, ity o f tablet 100 14:00: First dose [place] mg 00 on [facility] 08/14/21 at Branch 0900, Until Discontinu ed, Routine cefTRIAXone No 1000mg 1,000 mg, Univers (ROCEPHIN) 08-14 0531 IV ity of 1,000 mg in 13:30: 18:13 [facility], [place] NaCl 0.9% 00 :31 Q24H ABX, Medic al (NS) 50 mL First dose Bra [facility] MINI-BAG on [place] 08/14/21 at 0830, Until Discontinu ed, Administer over 30 Minutes, 50 mL
Reas on for Anti-Infec tive: Empiric Therapy for Suspected Infection< br>Empiric Therapy Site: Respirator y
Durat ion of therapy: 7 days QUEtiapine Yes 100mg 100 mg, Uni vers (SEROQUEL) 08-14 Oral, QHS, ity of tablet 100 02:00: First dose [place] mg 00 on [facility] 08/13/21 at Branch 2100, Until Discontinu ed, Routine atorvastati Yes 80mg 80 mg, Univ ers n (LIPITOR) 08-14 Oral, QHS, it y of tablet 80 02:00: First dose [place] mg 00 on [facility] 08/13/21 at Branch 2100, Until Discontinu ed, Routine levETIRAcet 2022-0 Yes 500mg 500 mg, Un hunter am (KEPPRA) 08-14 Oral, BID, it y of tablet 500 01:00: First dose [place] mg 00 on [facility] Medical 08/13/21 at Branch 1999, Until Discontinu ed, Routine gabapentin 0 Yes 400mg 400 mg, Uni vers (NEURONTIN) 08-14 Oral, TID, it y of capsule 400 01:00: First dose [place] mg 00 on [facility] Medical 08/13/21 at Branch 1999, Until Discontinu ed, Routine Sliding Yes Subcutaneo Univ ers Scale 08-13 us, TID ity of Insulin - 22:00: MEALS+HS, [place] as Lispro 00 First dose Medical (HumaLOG) + on [facility] Branch Fsbg 08/13/21 at Testing 1700, Until Discontinu ed, Routine enoxaparin Yes 40mg 40 mg, Unive rs (LOVENOX) 08-13 Subcutaneo ity of injection 22:00: us, DAILY [place] as 40 mg 00 AT 1700, Medical First dose Branch on 08/13/21 at 1700, Until Discontinu ed, Routine guaiFENesin Yes 200mg 200 mg, Un hunter 100 mg/5 mL 08-13 Oral, ity of solution 17:07: Q4HPRN, [place] 200 mg 14 Starting Medical on [facility] Branch 08/13/21 at 1207, Until Discontinu ed, Routine, Cough azithromyci 2021- No 500mg 500 mg, IV Univers n 08-13 Piggyback, ity of (ZITHROMAX) 13:30: 17:45 Q24H ABX, [place] 500 mg in 00 :27 First dose Medi cheryl NaCl 0.9% (after Branch (NS) 250 mL last VIAL-MATE modificati IV on) on [facility] piggyback 08/13/21 at 0830, Until Discontinu ed, Administer over 60 Minutes, 250 mL
Reas on for Anti-Infec tive: Documented Infection< br>Documen yanely Infection Site: Respirator y
Durat ion of Therapy: 7 days cefTRIAXone 2021- No 1000mg 1,000 mg, Univers (ROCEPHIN) 08-13 IV ity of 1,000 mg in 13:15: 12:48 Pig[place], [place] NaCl 0.9% 00 :00 ONCE, 1 Medical (NS) 50 mL dose, On Branc h MINI-BAG 08/13/21 at 0815, Administer over 30 Minutes, 50 mL
Reas on for Anti-Infec tive: Documented Infection< br>Documen yanely Infection Site: Respirator y
Du ration of Therapy: 7 days acetaminoph No 650mg 650 mg, U nivers en 08-13 Oral, ity of (TYLENOL) 13:15: 15:51 ONCE, 1 [place] tablet 650 00 :00 dose, On Medic al mg Sat Branch 08/13/21 at 0815, LEW codeine-gua 2021- No 10mL 10 mL, Uni vers ifenesin 08-13 Oral, ity of (ROBITUSSIN 12:45: 11:38 ONCE, 1 [place] AC) 10-100 00 :00 dose, On Medic al mg/5 mL Sat Branch oral 08/13/21 at solution 10 0745, LEW mL ipratropium Yes 3mL 3 mL, Unive rs -albuteroL 08-13 Inhalation ity of (DUONEB) 12:15: , QIDPRN, [place] 0.5 mg-3 42 Starting Medical mg(2.5 mg on Sat Branch base)/3 mL 08/13/21 at nebulizer 0715, solution 3 Until mL Discontinu ed, Routine, Wheezing, Shortness of Breath, Bronchospa sm, Chest tightness ondansetron Yes 4mg 4 mg, Slow Univers (ZOFRAN 08-13 IV Push, ity of (PF)) 12:15: Q6HPRN, [place] injection 4 27 Starting Medi cheryl mg on [facility] Branch 08/13/21 at 0715, Until Discontinu ed, Routine, Nausea and Vomiting (N/V) traMADoL 2021- No 50mg 50 mg, Univer s (ULTRAM) 08-13 0530 Oral, ity of tablet 50 12:15: 12:14 Q8HPRN, [place] mg 21 :21 Starting Medical on [facility] Branch 08/13/21 at 0715, Until 08/15/21 at 0714, Routine, Pain (scale 4-6) acetaminoph Yes 650mg 650 mg, Un hunter en 08-13 Oral, ity of (TYLENOL) 12:15: Q6HPRN, [place] tablet 650 19 Starting Medic al mg on Sat Branch 08/13/21 at 0715, Until Discontinu ed, Routine, Pain (scale 1-3) lidocaine 2021- No [id number] 1{patch QD Apply 1 [place] (Lidoderm) 16 07 } patch Health 5 % patch 00:00: [...] Branch Tu07/26/21 at 1230, STAT HYDROcodone 2021- No 4647 .5{tbl} Take 0.5-1 Univers -acetaminop 5-10 -18 tablets by i ty of [place] (NORCO) [...] On Medical mg/15 mL Tue Branch PEDI 3/22/22 at solution 1300, LEW 7.5 mg ibuprofen 2022-0 Yes [id number] 800mg Take 1 [facility] 800 mg 3-22 tablet by ity of tablet 00:00: mouth [place] 00 every 8 Medical (eight) Branch hours as needed for Pain (scale 4-6). ondansetron 2022-0 Yes [id number] 4mg Take 1 Univers 4 mg 3-22 tablet by ity of disintegrat 00:00: mouth [place] ing tablet 00 every 4 Medica l (four) Branch hours as needed for Nausea and Vomiting (N/V). ibuprofen 2022-0 Yes [id number] 800mg Take 1 [facility] 800 mg 3-22 tablet by ity of tablet 00:00: mouth [place] 00 every 8 Medical (eight) Branch hours as needed for Pain (scale 4-6). ondansetron 2022-0 Yes [id number] 4mg Take 1 Univers 4 mg 3-22 tablet by ity of disintegrat 00:00: mouth [place] ing tablet 00 every 4 Medica l (four) Branch hours as needed for Nausea and Vomiting (N/V). ibuprofen 2022-0 Yes [id number] 800mg Take 1 Univers 800 mg 3-22 tablet by ity of tablet 00:00: mouth [place] 00 every 8 Medical (eight) Branch hours as needed for Pain (scale 4-6). ondansetron 2022-0 Yes [id number] 4mg Take 1 Univers 4 mg 3-22 tablet by ity of disintegrat 00:00: mouth [place] ing tablet 00 every 4 Medica l (four) Branch hours as needed for Nausea and Vomiting (N/V). ibuprofen 2022-0 Yes [id number] 800mg Take 1 [facility] 800 mg 3-22 tablet by ity of tablet 00:00: mouth [place] 00 every 8 Medical (eight) Branch hours as needed for Pain (scale 4-6). ondansetron 2022-0 Yes [id number] 4mg Take 1 Univers 4 mg 3-22 tablet by ity of disintegrat 00:00: mouth [place] ing tablet 00 every 4 Medica l (four) Branch hours as needed for Nausea and Vomiting (N/V). ibuprofen 2022-0 Yes [id number] 800mg Take 1 [facility] 800 mg 3-22 tablet by ity of tablet 00:00: mouth [place] 00 every 8 Medical (eight) Branch hours as needed for Pain (scale 4-6). ondansetron 2022-0 Yes [id number] 4mg Take 1 Univers 4 mg 3-22 tablet by ity of disintegrat 00:00: mouth [place] ing tablet 00 every 4 Medica l (four) Branch hours as needed for Nausea and Vomiting (N/V). ibuprofen 2021-0 Yes [id number] 800mg Take 1 [facility] 800 mg 3-22 tablet by ity of tablet 00:00: mouth [place] 00 every 8 Medical (eight) Branch hours as needed for Pain (scale 4-6). ondansetron 2-0 Yes [id number] 4mg Take 1 Univers 4 mg 3-22 tablet by ity of disintegrat 00:00: mouth [place] ing tablet 00 every 4 Medica l (four) Branch hours as needed for Nausea and Vomiting (N/V). ibuprofen 2021-0 Yes [id number] 800mg Take 1 [facility] 800 mg 3-22 tablet by ity of tablet 00:00: mouth [place] 00 every 8 Medical (eight) Branch hours as needed for Pain (scale 4-6). ondansetron 2021-0 Yes [id number] 4mg Take 1 Univers 4 mg 3-22 tablet by ity of disintegrat 00:00: mouth [place] ing tablet 00 every 4 Medica l (four) Branch hours as needed for Nausea and Vomiting (N/V). ibuprofen 2021-0 Yes [id number] 800mg Take 1 Univers 800 mg 3-22 tablet by ity of tablet 00:00: mouth [place] 00 every 8 Medical (eight) Branch hours as needed for Pain (scale 4-6). ondansetron 2021-0 Yes [id number] 4mg Take 1 Univers 4 mg 3-22 tablet by ity of disintegrat 00:00: mouth [place] ing tablet 00 every 4 Medica l (four) Branch hours as needed for Nausea and Vomiting (N/V). HYDROcodone 2021- No 4647 1{tbl} Take 1 [...] 3-22 03-30 tablet by it y of [place] ([employer]) 00:00: 04:59 mouth [place] 7.5-325 mg 00 :00 every 8 Medica l per tablet (eight) Branch hours as needed for Pain for up to 7 days. 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, Duration: 30 day, Stop date: 04/15/21 14:59:00 CLINIC OFFICE ASSISTANT Baclofen 1 No 40,000 Memor ia MG/ML 8-31 microgram, l Injectable 18:00: Route: [place] nn Solution 00 INTRATHECA DARI [place]onal[place], Dosing Weight 118.182, kg, 40ml = 40,000mcg, Start date: 11/16/20 13:00:00 CDT, Duration: 30 day, Stop date: 12/16/20 12:59:00 CDT sertraline Yes 50 mg = 1 Me moria 50 mg oral 8-10 tab, PO, l tablet 15:50: BID, # 30 Mauricio n 00 tab, 0 Refill(s) montelukast Yes Daily, 0 Me moria 6-14 Refill(s) l 19:25: [place] 00 3 ML Yes 1 mg, Memoria semaglutide 6-14 SUB-Q, l 1.34 MG/ML 19:25: qWeek, 0 Her adams Pen 00 Refill(s) Injector [Ozempic] Botulinum 2019-03 No 600 unit, Mem oria Toxin Type 2-29 Route: IM, l A 22:00: Demar CHAPIN Dosing Weight 125, kg, Start date: 03/16/20 16:00:00 CLINIC OFFICE ASSISTANT, Duration: 30 day, Stop date: 04/15/20 15:59:00 CLINIC OFFICE ASSISTANT Ozempic (1 Ozempic (1 2019-03 No Ozempic (1 MG/DOSE) 2 MG/DOSE) 2 -23 MG/DOSE) 2 MG/1.5ML MG/1.5ML 00:00: MG/1.5ML 00 Ozempic (1 Ozempic (1 2019-03- No Ozempic (1 MG/DOSE) 2 MG/DOSE) 2 - 09-19 MG/DOSE) 2 MG/1.5ML MG/1.5ML 00:00: 00:00 [...] No Ozempic (1 MG/DOSE) 2 MG/DOSE) 2 05-1119 MG/DOSE) 2 MG/1.5ML MG/1.5ML 00:00: 00:00 MG/1.5ML 00 :00 Ozempic (1 Ozempic (2019-03- No Ozempic (1 MG/DOSE) 2 MG/DOSE) 2 05-1119 MG/DOSE) 2 MG/1.5ML MG/1.5ML 00:00: 00:00 MG/1.5ML [...] No Ozempic (1 MG/DOSE) 2 MG/DOSE) 2 2-09 12-19 MG/DOSE) 2 MG/1.5ML MG/1.5ML 00:00: 00:00 MG/1.5ML 00 :00 Ozempic (1 Ozempic (2019-03- No Ozempic (1 MG/DOSE) 2 MG/DOSE) 2 2-19 MG/DOSE) 2 MG/1.5ML MG/1.5ML 00:00: 00:00 MG/1.5ML 00 :00 Ozempic (1 Ozempic (2019-03- No Ozempic (1 MG/DOSE) 2 MG/DOSE) 2 05-11-19 MG/DOSE) 2 MG/1.5ML MG/1.5ML 00:00: 00:00 MG/1.5ML 00 :00 Ozempic (1 Ozempic (2019-03- No Ozempic (1 MG/DOSE) 2 MG/DOSE) 2 05-11-19 MG/DOSE) 2 MG/1.5ML MG/1.5ML 00:00: 00:00 MG/1.5ML 00 :00 GlipiZIDE GlipiZIDE 2019-03 No 1{table QD GlipiZIDE [...] 2-22 t_with_ ER 5 MG 00:00: food} Ketoconazol Ketoconazol 2019-03- No 5{ml} BID Ketoconazo e 2 % e 2 % 2-22 04-13 le 2 % 00:00: 00:00 00 :00 Ketoconazol Ketoconazol 2019-1- No 5{ml} BID Ketoconazo e 2 % e 2 % 2 04-13 le 2 % 00:00: 00:00 00 :00 Ketoconazol Ketoconazol 2019-1- No 5{ml} BID Ketoconazo e 2 % e 2 % 222 04-13 le 2 % 00:00: 00:00 00 [...] Type 9-30 Route: IM, l A 18:00: [place] Dosing Weight 125, kg, Start date: 12/17/19 13:00:00 CDT, Duration: 30 day, Stop date: 01/16/20 12:59:00 CDT Botulinum 2020-0 No 600 unit, Mem oria Toxin Type 6-30 Route: IM, l A 20:00: ONCALL, [place] Dosing Weight 125, kg, Start date: 09/16/19 15:00:00 CDT, Duration: 30 day, Stop date: 10/16/19 14:59:00 CDT baclofen 2 2019-0 Yes 475.5 Memori a mg/mL 6-09 mcg/day, l intrathecal 21:24: INTRATHECA [place] solution 00 L, Continuous , simple, 0 Refill(s) Vitamin D2 2019-0 Yes 50,000 Memor ia 50,000 intl 6-09 IntlUnit = l units oral 14:44: 1 cap, PO, H ermann capsule 00 Q30D, # 24 cap, 0 Refill(s) Metformin 2020-0 Yes 1,000 mg, Mem oria 6-09 PO, Daily, l 14:41: 0 [place] 00 Refill(s) gabapentin 2019-0 Yes 300 mg = 1 M emoria 300 MG Oral 6-09 cap, PO, l Capsule 14:41: TID, # 90 [place] nn 00 cap, 1 Refill(s) neomycin-po 2019-0 2020- No [id number] 3[drp] Place 3 Univers lymyxin-hyd 4-03 04-09 Drops in ity of rocortisone 00:00: 04:59 left ear 4 [place] otic 00 :00 (four) Medical solution times Branch daily for 5 days. levoFLOXaci 2019-0 2020- No [id number] 750mg Take 1 Univers n 750 mg 3-15 - tablet by ity o f tablet 00:00: 04:59 mouth [place] 00 :00 every 24 Medical (twenty-fo Branch ur) hours for 5 days. levoFLOXaci 2020-0 2020- No [id number] 750mg Take 1 Univers n 750 mg 3-15 03-21 tablet by ity o f tablet 00:00: 04:59 mouth [place] 00 :00 every 24 Medical ([facility]) hours for 5 days. levoFLOXaci 2019-0 2020- No [id number] 750mg Take 1 Univers n 750 mg 3-15 03-21 tablet by ity o f tablet 00:00: 04:59 mouth [place] 00 :00 every 24 Medical ([facility]) hours for 5 days. levoFLOXaci 2019-0 2019- No [id number] 750mg Take 1 Univers n 750 mg 3-15 03-21 tablet by ity o f tablet 00:00: 04:59 mouth [place] 00 :00 every 24 Medical ([facility]) hours for 5 days. pioglitazon 2020-0 Yes [id number] 30mg Take 1 Univers e 30 mg 3-13 tablet by ity of tablet 00:00: mouth [place] 00 daily. Medical Branch pioglitazon 2020-0 Yes [id number] 30mg Take 1 Univers e 30 mg 3-13 tablet by ity of tablet 00:00: mouth [place] 00 daily. Medical Branch pioglitazon 2020-0 Yes [id number] 30mg Take 1 Univers e 30 mg 3-13 tablet by ity of tablet 00:00: mouth [place] 00 daily. Medical Branch pioglitazon 2020-0 Yes [id number] 30mg Take 1 Univers e 30 mg 3-13 tablet by ity of tablet 00:00: mouth [place] 00 daily. Medical Branch pioglitazon 2020-0 Yes [id number] 30mg Take 1 Univers e 30 mg 3-13 tablet by ity of tablet 00:00: mouth [place] 00 daily. Medical Branch pioglitazon 2020-0 Yes [id number] 30mg Take 1 Univers e 30 mg 3-13 tablet by ity of tablet 00:00: mouth [place] 00 daily. [facility] Branch pioglitazon 2020-0 Yes [id number] 30mg Take 1 Univers e 30 mg 3-13 tablet by ity of tablet 00:00: mouth [place] 00 daily. Medical Branch pioglitazon 2020-0 Yes [id number] 30mg Take 1 Univers e 30 mg 3-13 tablet by ity of tablet 00:00: mouth [place] 00 daily. Medical Branch pioglitazon 2020-0 Yes [id number] 30mg Take 1 Univers e 30 mg 3-13 tablet by ity of tablet 00:00: mouth [place] 00 daily. Medical Branch pioglitazon 2020-0 Yes [id number] 30mg Take 1 Univers e 30 mg 3-13 tablet by ity of tablet 00:00: mouth [place] 00 daily. Medical Branch pioglitazon 2020-0 Yes [id number] 30mg Take 1 Univers e 30 mg 3-13 tablet by ity of tablet 00:00: mouth [place] 00 daily. Medical Branch pioglitazon 2020-0 Yes [id number] 30mg Take 1 Univers e 30 mg 3-13 tablet by ity of tablet 00:00: mouth [place] 00 daily. Medical Branch pioglitazon 2020-0 Yes [id number] 30mg Take 1 Univers e 30 mg 3-13 tablet by ity of tablet 00:00: mouth [place] 00 daily. Medical Branch pioglitazon 2020-0 Yes [id number] 30mg Take 1 Univers e 30 mg 3-13 tablet by ity of tablet 00:00: mouth [place] 00 daily. Medical Branch pioglitazon 2020-0 Yes [id number] 30mg Take 1 Univers e 30 mg 3-13 tablet by ity of tablet 00:00: mouth [place] 00 daily. Medical Branch pioglitazon 2020-0 Yes [id number] 30mg Take 1 Univers e 30 mg 3-13 tablet by ity of tablet 00:00: mouth [place] 00 daily. Medical Branch pioglitazon 2020-0 Yes [id number] 30mg Take 1 Univers e 30 mg 3-13 tablet by ity of tablet 00:00: mouth [place] 00 daily. Medical Branch pioglitazon 2020-0 Yes [id number] 30mg Take 1 Univers e 30 mg 3-13 tablet by ity of tablet 00:00: mouth [place] 00 daily. Medical Branch pioglitazon 2020-0 Yes [id number] 30mg Take 1 Univers e 30 mg 3-13 tablet by ity of tablet 00:00: mouth [place] 00 daily. [facility] Branch pioglitazon 2020-0 Yes [id number] 30mg Take 1 Univers e 30 mg 3-13 tablet by ity of tablet 00:00: mouth [place] 00 daily. Medical Branch pioglitazon 2020-0 Yes [id number] 30mg Take 1 Univers e 30 mg 3-13 tablet by ity of tablet 00:00: mouth [place] 00 daily. Medical Branch pioglitazon 2020-0 Yes [id number] 30mg Take 1 Univers e 30 mg 3-13 tablet by ity of tablet 00:00: mouth [place] 00 daily. Medical Branch pioglitazon 2020-0 Yes [id number] 30mg Take 1 Univers e 30 mg 3-13 tablet by ity of tablet 00:00: mouth [place] 00 daily. Medical Branch pioglitazon 2020-0 Yes [id number] 30mg Take 1 Univers e 30 mg 3-13 tablet by ity of tablet 00:00: mouth [place] 00 daily. Medical Branch pioglitazon 2020-0 Yes [id number] 30mg Take 1 Univers e 30 mg 3-13 tablet by ity of tablet 00:00: mouth [place] 00 daily. Medical Branch pioglitazon 2020-0 Yes [id number] 30mg Take 1 Univers e 30 mg 3-13 tablet by ity of tablet 00:00: mouth [place] 00 daily. Medical Branch pioglitazon 2020-0 Yes [id number] 30mg Take 1 Univers e 30 mg 3-13 tablet by ity of tablet 00:00: mouth [place] 00 daily. Medical Branch pioglitazon 2020-0 Yes [id number] 30mg Take 1 Univers e 30 mg 3-13 tablet by ity of tablet 00:00: mouth [place] 00 daily. Medical Branch pioglitazon 2020-0 Yes [id number] 30mg Take 1 Univers e 30 mg 3-13 tablet by ity of tablet 00:00: mouth [place] 00 daily. Medical Branch lisinopril 2020-0 Yes [id number] 5mg Take 1 U nivers 5 mg tablet 3-11 tablet by ity of 00:00: mouth [place] 00 daily. Medical Branch lisinopril 2020-0 Yes [id number] 5mg Take 1 U nivers 5 mg tablet 3-11 tablet by ity of 00:00: mouth [place] 00 daily. Medical Branch lisinopril 2020-0 Yes [id number] 5mg Take 1 U nivers 5 mg tablet 3-11 tablet by ity of 00:00: mouth [place] 00 daily. Medical Branch lisinopril 2020-0 Yes [id number] 5mg Take 1 U nivers 5 mg tablet 3-11 tablet by ity of 00:00: mouth [place] 00 daily. Medical Branch lisinopril 2020-0 Yes [id number] 5mg Take 1 U nivers 5 mg tablet 3-11 tablet by ity of 00:00: mouth [place] 00 daily. Medical Branch lisinopril 2020-0 Yes [id number] 5mg Take 1 U nivers 5 mg tablet 3-11 tablet by ity of 00:00: mouth [place] 00 daily. Medical Branch lisinopril 2020-0 Yes [id number] 5mg Take 1 U nivers 5 mg tablet 3-11 tablet by ity of 00:00: mouth [place] 00 daily. Medical Branch lisinopril 2020-0 Yes [id number] 5mg Take 1 U nivers 5 mg tablet 3-11 tablet by ity of 00:00: mouth [place] 00 daily. Medical Branch lisinopril 2020-0 Yes [id number] 5mg Take 1 U nivers 5 mg tablet 3-11 tablet by ity of 00:00: mouth [place] 00 daily. Medical Branch lisinopril 2020-0 Yes [id number] 5mg Take 1 U nivers 5 mg tablet 3-11 tablet by ity of 00:00: mouth [place] 00 daily. Medical Branch lisinopril 2020-0 Yes [id number] 5mg Take 1 U nivers 5 mg tablet 3-11 tablet by ity of 00:00: mouth [place] 00 daily. Medical Branch lisinopril 2020-0 Yes [id number] 5mg Take 1 U nivers 5 mg tablet 3-11 tablet by ity of 00:00: mouth [place] 00 daily. Medical Branch lisinopril 2020-0 Yes [id number] 5mg Take 1 U nivers 5 mg tablet 3-11 tablet by ity of 00:00: mouth [place] 00 daily. Medical Branch lisinopril 2020-0 Yes [id number] 5mg Take 1 U nivers 5 mg tablet 3-11 tablet by ity of 00:00: mouth [place] 00 daily. Medical Branch lisinopril 2020-0 Yes [id number] 5mg Take 1 U nivers 5 mg tablet 3-11 tablet by ity of 00:00: mouth [place] 00 daily. Medical Branch lisinopril 2020-0 Yes [id number] 5mg Take 1 U nivers 5 mg tablet 3-11 tablet by ity of 00:00: mouth [place] 00 daily. Medical Branch lisinopril 2020-0 Yes [id number] 5mg Take 1 U nivers 5 mg tablet 3-11 tablet by ity of 00:00: mouth [place] 00 daily. Medical Branch lisinopril 2020-0 Yes [id number] 5mg Take 1 U nivers 5 mg tablet 3-11 tablet by ity of 00:00: mouth [place] 00 daily. Medical Branch lisinopril 2020-0 Yes [id number] 5mg Take 1 U nivers 5 mg tablet 3-11 tablet by ity of 00:00: mouth [place] 00 daily. Medical Branch lisinopril 2020-0 Yes [id number] 5mg Take 1 U nivers 5 mg tablet 3-11 tablet by ity of 00:00: mouth [place] 00 daily. Medical Branch lisinopril 2020-0 Yes [id number] 5mg Take 1 U nivers 5 mg tablet 3-11 tablet by ity of 00:00: mouth [place] 00 daily. Medical Branch lisinopril 2020-0 Yes [id number] 5mg Take 1 U nivers 5 mg tablet 3-11 tablet by ity of 00:00: mouth [place] 00 daily. Medical Branch lisinopril 2020-0 Yes [id number] 5mg Take 1 U nivers 5 mg tablet 3-11 tablet by ity of 00:00: mouth [place] 00 daily. Medical Branch lisinopril 2020-0 Yes [id number] 5mg Take 1 U nivers 5 mg tablet 3-11 tablet by ity of 00:00: mouth [place] 00 daily. Medical Branch lisinopril 2020-0 Yes [id number] 5mg Take 1 U nivers 5 mg tablet 3-11 tablet by ity of 00:00: mouth [place] 00 daily. Medical Branch lisinopril 2020-0 Yes [id number] 5mg Take 1 U nivers 5 mg tablet 3-11 tablet by ity of 00:00: mouth [place] 00 daily. Medical Branch lisinopril 2020-0 Yes [id number] 5mg Take 1 U nivers 5 mg tablet 3-11 tablet by ity of 00:00: mouth [place] 00 daily. Medical Branch lisinopril 2020-0 Yes [id number] 5mg Take 1 U nivers 5 mg tablet 3-11 tablet by ity of 00:00: mouth [place] 00 daily. Medical Branch lisinopril 2020-0 Yes [id number] 5mg Take 1 U nivers 5 mg tablet 3-11 tablet by ity of 00:00: mouth [place] 00 daily. Medical Branch lisinopril 2020-0 Yes [id number] 5mg Take 1 U nivers 5 mg tablet 3-11 tablet by ity of 00:00: mouth [place] 00 daily. Medical Branch lisinopril 2020-0 Yes [id number] 5mg Take 1 U nivers 5 mg tablet 3-11 tablet by ity of 00:00: mouth [place] 00 daily. Medical Branch lisinopril 2020-0 Yes [id number] 5mg Take 1 U nivers 5 mg tablet 3-11 tablet by ity of 00:00: mouth [place] 00 daily. Medical Branch lisinopril 2020-0 Yes [id number] 5mg Take 1 U nivers 5 mg tablet 3-11 tablet by ity of 00:00: mouth [place] 00 daily. Medical Branch lisinopril 2020-0 Yes [id number] 5mg Take 1 U nivers 5 mg tablet 3-11 tablet by ity of 00:00: mouth [place] 00 daily. Medical Branch lisinopril 2020-0 Yes [id number] 5mg Take 1 U nivers 5 mg tablet 3-11 tablet by ity of 00:00: mouth [place] 00 daily. Medical Branch lisinopril 2020-0 Yes [id number] 5mg Take 1 U nivers 5 mg tablet 3-11 tablet by ity of 00:00: mouth [place] 00 daily. Medical Branch metFORMIN 2020-0 2020- No 500mg Take 500 Un [place] 500 mg 3-05 03-05 mg by ity of tablet 21:37: 00:00 mouth 2 [place] 52 :00 (two) Medical times Branch daily with meals. metFORMIN 2020-0 2020- No 500mg Take 500 Un [place] 500 mg 3-05 03-05 mg by ity of tablet 21:37: 00:00 mouth 2 [place] 52 :00 (two) Medical times [place] daily with meals. hydrocortis 2020-0 Yes 10mg Take 10 mg Univers one 10 mg 3-05 by mouth ity of tablet 20:28: every [place] 24 morning. Medical Branch hydrocortis 2020-0 Yes 10mg Take 10 mg Univers one 10 mg 3-05 by mouth ity of tablet 20:28: every [place] 24 morning. Medical Branch hydrocortis 2020-0 Yes [...] 14:28: every [place] 24 morning. Medical Branch metFORMIN 2020-0 Yes [id number] 1000mg Take 1 Univers 1,000 mg 3-05 tablet by ity of tablet 00:00: mouth 2 (two) Medical times Branch daily with meals. metFORMIN 2020-0 Yes [id number] 1000mg Take 1 Univers 1,000 mg 3-05 tablet by ity of tablet 00:00: mouth 2 (two) Medical times Branch daily with meals. metFORMIN 2020-0 Yes [id number] 1000mg Take 1 Univers 1,000 mg 3-05 tablet by ity of tablet 00:00: mouth 2 (two) Medical times Branch daily with meals. metFORMIN 2020-0 Yes [id number] 1000mg Take 1 Univers 1,000 mg 3-05 tablet by ity of tablet 00:00: mouth (two) Medical times Branch daily with meals. metFORMIN 2020-0 Yes [id number] 1000mg Take 1 Univers 1,000 mg 3-05 tablet by ity of tablet 00:00: mouth (two) Medical times Branch daily with meals. metFORMIN 2020-0 Yes [id number] 1000mg Take 1 Univers 1,000 mg 3-05 tablet by ity of tablet 00:00: mouth (two) Medical times Branch daily with meals. metFORMIN 2020-0 Yes [id number] 1000mg Take 1 Univers 1,000 mg 3-05 tablet by ity of tablet 00:00: mouth (two) Medical times Branch daily with meals. metFORMIN 2020-0 Yes [id number] 1000mg Take 1 Univers 1,000 mg 3-05 tablet by ity of tablet 00:00: mouth (two) Medical times Branch daily with meals. metFORMIN 2020-0 Yes [id number] 1000mg Take 1 Univers 1,000 mg 3-05 tablet by ity of tablet 00:00: mouth (two) Medical times Branch daily with meals. metFORMIN 2020-0 Yes [id number] 1000mg Take 1 Univers 1,000 mg 3-05 tablet by ity of tablet 00:00: mouth (two) Medical times Branch daily with meals. metFORMIN 2020-0 Yes [id number] 1000mg Take 1 Univers 1,000 mg 3-05 tablet by ity of tablet 00:00: mouth (two) Medical times Branch daily with meals. metFORMIN 2020-0 Yes [id number] 1000mg Take 1 Univers 1,000 mg 3-05 tablet by ity of tablet 00:00: mouth (two) Medical times Branch daily with meals. metFORMIN 2020-0 Yes [id number] 1000mg Take 1 Univers 1,000 mg 3-05 tablet by ity of tablet 00:00: mouth (two) Medical times Branch daily with meals. metFORMIN 2020-0 Yes [id number] 1000mg Take 1 Univers 1,000 mg 3-05 tablet by ity of tablet 00:00: mouth (two) Medical times Branch daily with meals. metFORMIN 2020-0 Yes [id number] 1000mg Take 1 Univers 1,000 mg 3-05 tablet by ity of tablet 00:00: mouth (two) Medical times Branch daily with meals. metFORMIN 2020-0 Yes [id number] 1000mg Take 1 Univers 1,000 mg 3-05 tablet by ity of tablet 00:00: mouth (two) Medical times Branch daily with meals. metFORMIN 2020-0 Yes [id number] 1000mg Take 1 Univers 1,000 mg 3-05 tablet by ity of tablet 00:00: mouth (two) Medical times Branch daily with meals. pioglitazon 2020-0 Yes [id number] 15mg Take 1 Univers e 15 mg 3-05 tablet by ity of tablet 00:00: mouth (two) Medical times Branch daily. metFORMIN 2020-0 Yes [id number] 1000mg Take 1 Univers 1,000 mg 3-05 tablet by ity of tablet 00:00: mouth (two) Medical times Branch daily with meals. pioglitazon 2020-0 Yes [id number] 15mg Take 1 Univers e 15 mg 3-05 tablet by ity of tablet 00:00: mouth (two) Medical times Branch daily. metFORMIN 2020-0 Yes [id number] 1000mg Take 1 Univers 1,000 mg 3-05 tablet by ity of tablet 00:00: mouth (two) Medical times Branch daily with meals. pioglitazon 2020-0 Yes [id number] 15mg Take 1 Univers e 15 mg 3-05 tablet by ity of tablet 00:00: mouth (two) Medical times Branch daily. metFORMIN 2020-0 Yes [id number] 1000mg Take 1 Univers 1,000 mg 3-05 tablet by ity of tablet 00:00: mouth (two) Medical times Branch daily with meals. pioglitazon 2020-0 Yes [id number] 15mg Take 1 Univers e 15 mg 3-05 tablet by ity of tablet 00:00: mouth (two) Medical times Branch daily. metFORMIN 2020-0 Yes [id number] 1000mg Take 1 Univers 1,000 mg 3-05 tablet by ity of tablet 00:00: mouth (two) Medical times Branch daily with meals. pioglitazon 2020-0 Yes [id number] 15mg Take 1 Univers e 15 mg 3-05 tablet by ity of tablet 00:00: mouth (two) Medical times Branch daily. metFORMIN 2020-0 Yes [id number] 1000mg Take 1 Univers 1,000 mg 3-05 tablet by ity of tablet 00:00: mouth (two) Medical times Branch daily with meals. pioglitazon 2020-0 Yes [id number] 15mg Take 1 Univers e 15 mg 3-05 tablet by ity of tablet 00:00: mouth (two) Medical times Branch daily. metFORMIN 2020-0 Yes [id number] 1000mg Take 1 Univers 1,000 mg 3-05 tablet by ity of tablet 00:00: mouth (two) Medical times Branch daily with meals. pioglitazon 2020-0 Yes [id number] 15mg Take 1 Univers e 15 mg 3-05 tablet by ity of tablet 00:00: mouth (two) Medical times Branch daily. metFORMIN 2020-0 Yes [id number] 1000mg Take 1 Univers 1,000 mg 3-05 tablet by ity of tablet 00:00: mouth (two) Medical times Branch daily with meals. pioglitazon 2020-0 Yes [id number] 15mg Take 1 Univers e 15 mg 3-05 tablet by ity of tablet 00:00: mouth (two) Medical times Branch daily. metFORMIN 2020-0 Yes [id number] 1000mg Take 1 [facility] 1,000 mg 3-05 tablet by [facility] tablet 00:00: mouth (two) Medical times Branch daily with meals. pioglitazon 2020-0 Yes [id number] 15mg Take 1 [facility] e 15 mg 3-05 tablet by [facility] tablet 00:00: mouth (two) Medical times Branch daily. metFORMIN 2020-0 Yes [id number] 1000mg Take 1 [facility] 1,000 mg 3-05 tablet by [facility] tablet 00:00: mouth (two) Medical times Branch daily with meals. pioglitazon 2020-0 Yes [id number] 15mg Take 1 [facility] e 15 mg 3-05 tablet by [facility] tablet 00:00: mouth (two) Medical times Branch daily. metFORMIN 2020-0 Yes [id number] 1000mg Take 1 [facility] 1,000 mg 3-05 tablet by [facility] tablet 00:00: mouth (two) Medical times Branch daily with meals. pioglitazon 2020-0 Yes [id number] 15mg Take 1 [facility] e 15 mg 3-05 tablet by [facility] tablet 00:00: mouth (two) Medical times Branch daily. metFORMIN 2020-0 Yes [id number] 1000mg Take 1 [facility] 1,000 mg 3-05 tablet by [facility] tablet 00:00: mouth (two) Medical times Branch daily with meals. pioglitazon 2020-0 Yes [id number] 15mg Take 1 [facility] e 15 mg 3-05 tablet by [facility] tablet 00:00: mouth (two) Medical times Branch daily. metFORMIN 2020-0 Yes [id number] 1000mg Take 1 [facility] 1,000 mg 3-05 tablet by [facility] tablet 00:00: mouth (two) Medical times Branch daily with meals. metFORMIN 2020-0 Yes [id number] 1000mg Take 1 [facility] 1,000 mg 3-05 tablet by [facility] tablet 00:00: mouth (two) Medical times Branch daily with meals. metFORMIN 2020-0 Yes [id number] 1000mg Take 1 [facility] 1,000 mg 3-05 tablet by [facility] tablet 00:00: mouth (two) Medical times Branch daily with meals. metFORMIN 2020-0 Yes [id number] 1000mg Take 1 [facility] 1,000 mg 3-05 tablet by [facility] tablet 00:00: mouth (two) Medical times Branch daily with meals. metFORMIN 2020-0 Yes [id number] 1000mg Take 1 [facility] 1,000 mg 3-05 tablet by [facility] tablet 00:00: mouth (two) Medical times Branch daily with meals. metFORMIN 2020-0 Yes [id number] 1000mg Take 1 [facility] 1,000 mg 3-05 tablet by [facility] tablet 00:00: mouth (two) Medical times Branch daily with meals. metFORMIN 2020-0 Yes [id number] 1000mg Take 1 [facility] 1,000 mg 3-05 tablet by [facility] tablet 00:00: mouth (two) Medical times Branch daily with meals. metFORMIN 2020-0 Yes [id number] 1000mg Take 1 [facility] 1,000 mg 3-05 tablet by [facility] tablet 00:00: mouth (two) Medical times Branch daily with meals. metFORMIN 2020-0 Yes [id number] 1000mg Take 1 [facility] 1,000 mg 3-05 tablet by [facility] tablet 00:00: mouth (two) Medical times Branch daily with meals. metFORMIN 2020-0 Yes [id number] 1000mg Take 1 [facility] 1,000 mg 3-05 tablet by [facility] tablet 00:00: mouth (two) Medical times Branch daily with meals. metFORMIN 2020-0 Yes [id number] 1000mg Take 1 [facility] 1,000 mg 3-05 tablet by [facility] tablet 00:00: mouth (two) Medical times Branch daily with meals. metFORMIN 2020-0 Yes [id number] 1000mg Take 1 [facility] 1,000 mg 3-05 tablet by [facility] tablet 00:00: mouth (two) Medical times Branch daily with meals. metFORMIN 2020-0 Yes [id number] 1000mg Take 1 [facility] 1,000 mg 3-05 tablet by [facility] tablet 00:00: mouth (two) Medical times Branch daily with meals. metFORMIN 2020-0 Yes [id number] 1000mg Take 1 [facility] 1,000 mg 3-05 tablet by [facility] tablet 00:00: mouth (two) Medical times Branch daily with meals. metFORMIN 2020-0 Yes [id number] 1000mg Take 1 [facility] 1,000 mg 3-05 tablet by [facility] tablet 00:00: mouth (two) Medical times Branch daily with meals. pioglitazon 2020-0 2020- No [id number] 15mg Take 1 [facility] e 15 mg 3-05 03-13 tablet by [facility] tablet 00:00: 00:00 mouth 2 [place] 00 :00 (two) Medical times Branch daily. metFORMIN 2020-0 Yes 500mg Take 500 [facility] vers 500 mg 1-29 mg by [facility] tablet 20:33: mouth 2 [place] (two) Medical times Branch daily with meals. metFORMIN 2020-0 Yes 500mg Take 500 [facility] vers 500 mg 1-29 mg by [facility] tablet 20:33: mouth 2 [place] (two) Medical times Branch daily with meals. metFORMIN 2020-0 Yes 500mg Take 500 [facility] vers 500 mg 1-29 mg by [facility] tablet 20:33: mouth 2 [place] [address] (two) Medical times Branch daily with meals. metFORMIN 2020-0 Yes 500mg Take 500 [facility] vers 500 mg 1-29 mg by [facility] tablet 20:33: mouth 2 [place] [address] (two) Medical times Branch daily with meals. metFORMIN 2020-0 Yes 500mg Take 500 [facility] vers 500 mg 1-29 mg by [facility] tablet 20:33: mouth 2 [place] 19 (two) Medical times Branch daily with meals. metFORMIN 2020-0 Yes 500mg Take 500 [facility] vers 500 mg 1-29 mg by [facility] tablet 20:33: mouth 2 [place] 19 (two) Medical times Branch daily with meals. metFORMIN 2020-0 Yes 500mg Take 500 [facility] vers 500 mg 1-29 mg by [facility] tablet 20:33: mouth 2 [place] [address] (two) Medical times Branch daily with meals. metFORMIN 2020-0 Yes 500mg Take 500 [facility] vers 500 mg 1-29 mg by [facility] tablet 20:33: mouth 2 [place] [address] (two) Medical times Branch daily with meals. metFORMIN 2020-0 Yes 500mg Take 500 [facility] vers 500 mg 1-29 mg by [facility] tablet 20:33: mouth 2 [place] [address] (two) Medical times Branch daily with meals. metFORMIN 2020-0 Yes 500mg Take 500 [facility] vers 500 mg 1-29 mg by [facility] tablet 20:33: mouth 2 [place] [address] (two) Medical times Branch daily with meals. acetaminoph 2020-0 2020- No 650mg 650 mg, [facility] en 04-08 Oral, [facility] of (TYLENOL) 20:45: 19:56 ONCE, 1 [place] 650 00 :00 dose, Tue Medi cheryl mg 04/08/19 at Branch 1445, LEW tamsulosin 2020-0 2020- No .4mg Take 0.4 [facility] 0.4 mg 24 -14 01-14 mg by [facility] hr capsule [...] :00 bedtime. Medical Branch levETIRAcet 2020-0 Yes [id number] 500mg Take 1 [facility] am 500 mg 1-14 tablet by [facility] o f tablet 00:00: mouth 2 [place] (two) Medical times Branch daily. atorvastati 2020-0 Yes [id number] 80mg Take 1 [facility] n 80 mg 1-14 tablet by [facility] tablet 00:00: mouth at [place] [address] bedtime. Medical Branch blood sugar 2020-0 Yes [id number] Use BID, [facility] diagnostic 1-14 DX E11.9 [facility] o f (BLOOD 00:00: (Brand [place] GLUCOSE 00 upon Medical TEST) strip insurance [facility]) gabapentin 2020-0 Yes [id number] 400mg Take 1 [facility] 400 mg 1-14 capsule by [facility] capsule 00:00: mouth 3 [place] (three) Medical times Branch daily. QUEtiapine 2020-0 Yes [id number] 100mg Take 1 [facility] 100 mg 1-14 tablet by [facility] tablet 00:00: mouth at [place] 00 bedtime. Medical Branch SERTraline 2020-0 Yes [id number] 100mg Take 1 [facility] 100 mg 1-14 tablet by [facility] tablet 00:00: mouth [place] 00 every Medical morning. Branch tamsulosin 2020-0 Yes [id number] .4mg Take 1 [facility] 0.4 mg 24 1-14 capsule by [facility] hr capsule 00:00: mouth [place] 00 daily. Medical Branch traZODone 2020-0 Yes [id number] 50mg Take 1 [facility] [place] 50 mg 1-14 tablet by [facility] tablet 00:00: mouth at [place] 00 bedtime. Medical Branch levETIRAcet 2020-0 Yes [id number] 500mg Take 1 [facility] am 500 mg 1-14 tablet by [facility] o f tablet 00:00: mouth 2 [place] 00 (two) Medical times Branch daily. atorvastati 2020-0 Yes [id number] 80mg Take 1 [facility] n 80 mg 1-14 tablet by [facility] of tablet 00:00: mouth at [place] 00 bedtime. Medical Branch blood sugar 2020-0 Yes [id number] Use BID, [facility] diagnostic 1-14 DX E11.9 [facility] o f (BLOOD 00:00: (Brand [place] GLUCOSE 00 upon Medical TEST) strip insurance [facility]) gabapentin 2020-0 Yes [id number] 400mg Take 1 [facility] 400 mg 1-14 capsule by [facility] capsule 00:00: mouth 3 (three) Medical times Branch daily. QUEtiapine 2020-0 Yes [id number] 100mg Take 1 [facility] 100 mg 1-14 tablet by [facility] tablet 00:00: mouth at [place] 00 bedtime. Medical Branch SERTraline 2020-0 Yes [id number] 100mg Take 1 [facility] 100 mg 1-14 tablet by [facility] tablet 00:00: mouth every Medical morning. Branch tamsulosin 2020-0 Yes [id number] .4mg Take 1 [facility] 0.4 mg 24 1-14 capsule by [facility] hr capsule 00:00: mouth 00 daily. Medical Branch traZODone 2020-0 Yes [id number] 50mg Take 1 [facility] [place] 50 mg 1-14 tablet by [facility] tablet 00:00: mouth at [place] bedtime. Medical Branch levETIRAcet 2020-0 Yes [id number] 500mg Take 1 [facility] am 500 mg 1-14 tablet by [facility] o f tablet 00:00: mouth 2 (two) Medical times Branch daily. atorvastati 2020-0 Yes [id number] 80mg Take 1 [facility] n 80 mg 1-14 tablet by [facility] of tablet 00:00: mouth at [place] 00 bedtime. Medical Branch blood sugar 2020-0 Yes [id number] Use BID, [facility] diagnostic 1-14 DX E11.9 [facility] o f (BLOOD 00:00: ([facility] GLUCOSE 00 upon Medical TEST) strip insurance [facility]) gabapentin 2020-0 Yes [id number] 400mg Take 1 [facility] 400 mg 1-14 capsule by [facility] of capsule 00:00: mouth 3 (three) Medical times Branch daily. QUEtiapine 2020-0 Yes [id number] 100mg Take 1 [facility] 100 mg 1-14 tablet by [facility] of tablet 00:00: mouth at [place] 00 bedtime. Medical Branch SERTraline 2020-0 Yes [id number] 100mg Take 1 [facility] 100 mg 1-14 tablet by [facility] of tablet 00:00: mouth [place] 00 every Medical morning. Branch tamsulosin 2020-0 Yes [id number] .4mg Take 1 [facility] 0.4 mg 24 1-14 capsule by [facility] of hr capsule 00:00: mouth [place] 00 daily. Medical Branch traZODone 2020-0 Yes [id number] 50mg Take 1 [facility] 50 mg 1-14 tablet by [facility] of tablet 00:00: mouth at [place] 00 bedtime. Medical Branch levETIRAcet 2020-0 Yes [id number] 500mg Take 1 [facility] am 500 mg 1-14 tablet by [facility] o f tablet 00:00: mouth 2 (two) Medical times Branch daily. atorvastati 2020-0 Yes [id number] 80mg Take 1 [facility] n 80 mg 1-14 tablet by [facility] of tablet 00:00: mouth at [place] 00 bedtime. Medical Branch blood sugar 2020-0 Yes [id number] Use BID, [facility] diagnostic 1-14 DX E11.9 [facility] o f (BLOOD 00:00: (Brand [place] GLUCOSE 00 upon Medical TEST) strip insurance [facility]) gabapentin 2020-0 Yes [id number] 400mg Take 1 [facility] 400 mg 1-14 capsule by [facility] of capsule 00:00: mouth 3 (three) Medical times Branch daily. QUEtiapine 2020-0 Yes [id number] 100mg Take 1 [facility] 100 mg 1-14 tablet by [facility] of tablet 00:00: mouth at [place] 00 bedtime. Medical Branch SERTraline 2020-0 Yes [id number] 100mg Take 1 [facility] 100 mg 1-14 tablet by it[facility] of tablet 00:00: mouth [place] 00 every Medical morning. Branch tamsulosin 2020-0 Yes [id number] .4mg Take 1 [facility] 0.4 mg 24 1-14 capsule by it[facility] of hr capsule 00:00: mouth [place] 00 daily. Medical Branch traZODone 2020-0 Yes [id number] 50mg Take 1 [facility] [place] 50 mg 1-14 tablet by [facility] of tablet 00:00: mouth at [place] 00 bedtime. Medical Branch levETIRAcet 2020-0 Yes [id number] 500mg Take 1 [facility] am 500 mg 1-14 tablet by it[facility] o f tablet 00:00: mouth 2 (two) Medical times Branch daily. atorvastati 2020-0 Yes [id number] 80mg Take 1 [facility] n 80 mg 1-14 tablet by [facility] of tablet 00:00: mouth at [place] 00 bedtime. Medical Branch blood sugar 2020-0 Yes [id number] Use BID, [facility] diagnostic 1-14 DX E11.9 it[facility] o f (BLOOD 00:00: (Brand [place] GLUCOSE 00 upon Medical TEST) strip insurance [facility]) gabapentin 2020-0 Yes [id number] 400mg Take 1 [facility] 400 mg 1-14 capsule by it[facility] of capsule 00:00: mouth 3 (three) Medical times Branch daily. QUEtiapine 2020-0 Yes [id number] 100mg Take 1 [facility] 100 mg 1-14 tablet by [facility] of tablet 00:00: mouth at [place] 00 bedtime. Medical Branch SERTraline 2020-0 Yes [id number] 100mg Take 1 [facility] 100 mg 1-14 tablet by ity of tablet 00:00: mouth [place] 00 every Medical morning. Branch tamsulosin 2020-0 Yes [id number] .4mg Take 1 [facility] 0.4 mg 24 1-14 capsule by it[facility] of hr capsule 00:00: mouth daily. Medical Branch traZODone 2020-0 Yes [id number] 50mg Take 1 [facility] 50 mg 1-14 tablet by it[facility] of tablet 00:00: mouth at [place] 00 bedtime. Medical Branch levETIRAcet 2020-0 Yes [id number] 500mg Take 1 [facility] am 500 mg 1-14 tablet by ity o f tablet 00:00: mouth 2 (two) Medical times Branch daily. atorvastati 2020-0 Yes [id number] 80mg Take 1 [facility] n 80 mg 1-14 tablet by it[facility] of tablet 00:00: mouth at [place] 00 bedtime. Medical Branch blood sugar 2020-0 Yes [id number] Use BID, [facility] diagnostic 1-14 DX E11.9 it[facility] o f (BLOOD 00:00: (Brand [place] GLUCOSE 00 upon Medical TEST) strip insurance [facility]) gabapentin 2020-0 Yes [id number] 400mg Take 1 [facility] 400 mg 1-14 capsule by [facility] of capsule 00:00: mouth 3 (three) Medical times Branch daily. QUEtiapine 2020-0 Yes [id number] 100mg Take 1 [facility] 100 mg 1-14 tablet by it[facility] of tablet 00:00: mouth at [place] 00 bedtime. Medical Branch SERTraline 2020-0 Yes [id number] 100mg Take 1 [facility] 100 mg 1-14 tablet by it[facility] of tablet 00:00: mouth [place] 00 every Medical morning. Branch tamsulosin 2020-0 Yes [id number] .4mg Take 1 [facility] 0.4 mg 24 1-14 capsule by it[facility] of hr capsule 00:00: mouth [place] 00 daily. Medical Branch traZODone 2020-0 Yes [id number] 50mg Take 1 [facility] 50 mg 1-14 tablet by it[facility] of tablet 00:00: mouth at [place] 00 bedtime. Medical Branch levETIRAcet 2020-0 Yes [id number] 500mg Take 1 [facility] am 500 mg 1-14 tablet by it[facility] o f tablet 00:00: mouth 2 (two) Medical times Branch daily. atorvastati 2020-0 Yes [id number] 80mg Take 1 [facility] n 80 mg 1-14 tablet by it[facility] of tablet 00:00: mouth at [place] 00 bedtime. Medical Branch blood sugar 2020-0 Yes [id number] Use BID, [facility] diagnostic 1-14 DX E11.9 it[facility] o f (BLOOD 00:00: (Brand [place] GLUCOSE 00 upon Medical TEST) strip insurance [facility]) gabapentin 2020-0 Yes [id number] 400mg Take 1 [facility] 400 mg 1-14 capsule by [facility] of capsule 00:00: mouth 3 (three) Medical times Branch daily. QUEtiapine 2020-0 Yes [id number] 100mg Take 1 [facility] 100 mg 1-14 tablet by it[facility] of tablet 00:00: mouth at [place] 00 bedtime. Medical Branch SERTraline 2020-0 Yes [id number] 100mg Take 1 [facility] 100 mg 1-14 tablet by it[facility] of tablet 00:00: mouth [place] 00 every Medical morning. Branch tamsulosin 2020-0 Yes [id number] .4mg Take 1 [facility] 0.4 mg 24 1-14 capsule by it[facility] of hr capsule 00:00: mouth [place] 00 daily. Medical Branch traZODone 2020-0 Yes [id number] 50mg Take 1 [facility] 50 mg 1-14 tablet by it[facility] of tablet 00:00: mouth at [place] 00 bedtime. Medical Branch levETIRAcet 2020-0 Yes [id number] 500mg Take 1 [facility] am 500 mg 1-14 tablet by ity o f tablet 00:00: mouth 2 (two) Medical times Branch daily. atorvastati 2020-0 Yes [id number] 80mg Take 1 [facility] n 80 mg 1-14 tablet by it[facility] of tablet 00:00: mouth at [place] 00 bedtime. Medical Branch blood sugar 2020-0 Yes [id number] Use BID, [facility] diagnostic 1-14 DX E11.9 ity o f (BLOOD 00:00: (Brand [place] GLUCOSE 00 upon Medical TEST) strip insurance [facility] [employer] [facility]) gabapentin 2020-0 Yes [id number] 400mg Take 1 [facility] 400 mg 1-14 capsule by ity of capsule 00:00: mouth 3 (three) Medical times Branch daily. QUEtiapine 2020-0 Yes [id number] 100mg Take 1 [facility] 100 mg 1-14 tablet by ity of tablet 00:00: mouth at [place] 00 bedtime. Medical Branch SERTraline 2020-0 Yes [id number] 100mg Take 1 [facility] 100 mg 1-14 tablet by ity of tablet 00:00: mouth [place] 00 every Medical morning. Branch tamsulosin 2020-0 Yes [id number] .4mg Take 1 [facility] 0.4 mg 24 1-14 capsule by ity of hr capsule 00:00: mouth 00 daily. Medical Branch traZODone 2020-0 Yes [id number] 50mg Take 1 [facility] 50 mg 1-14 tablet by ity of tablet 00:00: mouth at [place] 00 bedtime. Medical Branch levETIRAcet 2020-0 Yes [id number] 500mg Take 1 [facility] am 500 mg 1-14 tablet by ity o f tablet 00:00: mouth 2 (two) Medical times Branch daily. atorvastati 2020-0 Yes [id number] 80mg Take 1 [facility] n 80 mg 1-14 tablet by ity of tablet 00:00: mouth at [place] 00 bedtime. Medical Branch blood sugar 2020-0 Yes [id number] Use BID, [facility] diagnostic 1-14 DX E11.9 ity o f (BLOOD 00:00: (Brand [place] GLUCOSE 00 upon Medical TEST) strip insurance [facility]) gabapentin 2020-0 Yes [id number] 400mg Take 1 [facility] 400 mg 1-14 capsule by ity of capsule 00:00: mouth 3 (three) Medical times Branch daily. QUEtiapine 2020-0 Yes [id number] 100mg Take 1 [facility] 100 mg 1-14 tablet by ity of tablet 00:00: mouth at [place] 00 bedtime. Medical Branch SERTraline 2020-0 Yes [id number] 100mg Take 1 [facility] 100 mg 1-14 tablet by ity of tablet 00:00: mouth [place] 00 every Medical morning. Branch tamsulosin 2020-0 Yes [id number] .4mg Take 1 [facility] 0.4 mg 24 1-14 capsule by ity of hr capsule 00:00: mouth [place] 00 daily. Medical Branch traZODone 2020-0 Yes [id number] 50mg Take 1 [facility] [place] 50 mg 1-14 tablet by ity of tablet 00:00: mouth at [place] bedtime. Medical Branch levETIRAcet 2020-0 Yes [id number] 500mg Take 1 [facility] am 500 mg 1-14 tablet by ity o f tablet 00:00: mouth 2 (two) Medical times Branch daily. atorvastati 2020-0 Yes [id number] 80mg Take 1 [facility] n 80 mg 1-14 tablet by ity of tablet 00:00: mouth at [place] [address] bedtime. Medical Branch blood sugar 2020-0 Yes [id number] Use BID, [facility] diagnostic 1-14 DX E11.9 ity o f (BLOOD 00:00: (Brand [place] GLUCOSE 00 upon Medical TEST) strip insurance [facility]) gabapentin 2020-0 Yes [id number] 400mg Take 1 [facility] 400 mg 1-14 capsule by ity of capsule 00:00: mouth 3 (three) Medical times Branch daily. QUEtiapine 2020-0 Yes [id number] 100mg Take 1 [facility] 100 mg 1-14 tablet by ity of tablet 00:00: mouth at [place] [address] bedtime. Medical Branch SERTraline 2020-0 Yes [id number] 100mg Take 1 [facility] 100 mg 1-14 tablet by ity of tablet 00:00: mouth [place] 00 every Medical morning. Branch tamsulosin 2020-0 Yes [id number] .4mg Take 1 [facility] 0.4 mg 24 1-14 capsule by ity of hr capsule 00:00: mouth [place] 00 daily. Medical Branch traZODone 2020-0 Yes [id number] 50mg Take 1 [facility] 50 mg 1-14 tablet by ity of tablet 00:00: mouth at [place] [address] bedtime. Medical Branch levETIRAcet 2020-0 Yes [id number] 500mg Take 1 [facility] am 500 mg 1-14 tablet by ity o f tablet 00:00: mouth 2 00 (two) Medical times Branch daily. atorvastati 2020-0 Yes [id number] 80mg Take 1 [facility] n 80 mg 1-14 tablet by ity of tablet 00:00: mouth at [place] 00 bedtime. Medical Branch blood sugar 2020-0 Yes [id number] Use BID, [facility] diagnostic 1-14 DX E11.9 ity o f (BLOOD 00:00: (Brand [place] GLUCOSE 00 upon Medical TEST) strip insurance [employer] [facility]) gabapentin 2020-0 Yes [id number] 400mg Take 1 [facility] 400 mg 1-14 capsule by ity of capsule 00:00: mouth 3 (three) Medical times Branch daily. QUEtiapine 2020-0 Yes [id number] 100mg Take 1 [facility] 100 mg 1-14 tablet by ity of tablet 00:00: mouth at [place] 00 bedtime. Medical Branch SERTraline 2020-0 Yes [id number] 100mg Take 1 [facility] 100 mg 1-14 tablet by ity of tablet 00:00: mouth [place] 00 every Medical morning. Branch tamsulosin 2020-0 Yes [id number] .4mg Take 1 [facility] 0.4 mg 24 1-14 capsule by ity of hr capsule 00:00: mouth [place] 00 daily. Medical Branch traZODone 2020-0 Yes [id number] 50mg Take 1 [facility] [place] 50 mg 1-14 tablet by ity of tablet 00:00: mouth at [place] 00 bedtime. Medical Branch levETIRAcet 2020-0 Yes [id number] 500mg Take 1 [facility] am 500 mg 1-14 tablet by ity o f tablet 00:00: mouth 2 (two) Medical times Branch daily. atorvastati 2020-0 Yes [id number] 80mg Take 1 [facility] n 80 mg 1-14 tablet by ity of tablet 00:00: mouth at [place] 00 bedtime. Medical Branch blood sugar 2020-0 Yes [id number] Use BID, [facility] diagnostic 1-14 DX E11.9 ity o f (BLOOD 00:00: (Brand [place] GLUCOSE 00 upon Medical TEST) strip insurance [employer] [facility]) gabapentin 2020-0 Yes [id number] 400mg Take 1 [facility] 400 mg 1-14 capsule by ity of capsule 00:00: mouth 3 (three) Medical times Branch daily. QUEtiapine 2020-0 Yes [id number] 100mg Take 1 [facility] 100 mg 1-14 tablet by ity of tablet 00:00: mouth at [place] 00 bedtime. Medical Branch SERTraline 2020-0 Yes [id number] 100mg Take 1 [facility] 100 mg 1-14 tablet by ity of tablet 00:00: mouth [place] 00 every Medical morning. Branch tamsulosin 2020-0 Yes [id number] .4mg Take 1 [facility] 0.4 mg 24 1-14 capsule by ity of hr capsule 00:00: mouth [place] 00 daily. Medical Branch traZODone 2020-0 Yes [id number] 50mg Take 1 [facility] 50 mg 1-14 tablet by ity of tablet 00:00: mouth at [place] 00 bedtime. Medical Branch levETIRAcet 2020-0 Yes [id number] 500mg Take 1 [facility] am 500 mg 1-14 tablet by ity o f tablet 00:00: mouth 2 00 (two) Medical times Branch daily. atorvastati 2020-0 Yes [id number] 80mg Take 1 [facility] n 80 mg 1-14 tablet by ity of tablet 00:00: mouth at [place] 00 bedtime. Medical Branch blood sugar 2020-0 Yes [id number] Use BID, [facility] diagnostic 1-14 DX E11.9 ity o f (BLOOD 00:00: (Brand [place] GLUCOSE 00 upon Medical TEST) strip insurance [employer] [facility] [employer]) gabapentin 2020-0 Yes [id number] 400mg Take 1 [facility] 400 mg 1-14 capsule by ity of capsule 00:00: mouth 3 00 (three) Medical times Branch daily. QUEtiapine 2020-0 Yes [id number] 100mg Take 1 [facility] 100 mg 1-14 tablet by ity of tablet 00:00: mouth at [place] 00 bedtime. Medical Branch SERTraline 2020-0 Yes [id number] 100mg Take 1 [facility] 100 mg 1-14 tablet by ity of tablet 00:00: mouth [place] 00 every Medical morning. Branch tamsulosin 2020-0 Yes [id number] .4mg Take 1 [facility] 0.4 mg 24 1-14 capsule by ity of hr capsule 00:00: mouth [place] 00 daily. Medical Branch traZODone 2020-0 Yes [id number] 50mg Take 1 [facility] 50 mg 1-14 tablet by ity of tablet 00:00: mouth at [place] 00 bedtime. Medical Branch levETIRAcet 2020-0 Yes [id number] 500mg Take 1 [facility] am 500 mg 1-14 tablet by ity o f tablet 00:00: mouth 2 00 (two) Medical times Branch daily. atorvastati 2020-0 Yes [id number] 80mg Take 1 [facility] n 80 mg 1-14 tablet by ity of tablet 00:00: mouth at [place] 00 bedtime. Medical Branch blood sugar 2020-0 Yes [id number] Use BID, [facility] diagnostic 1-14 DX E11.9 ity o f (BLOOD 00:00: (Brand [place] GLUCOSE 00 upon Medical TEST) strip insurance [employer] [facility] [employer]) gabapentin 2020-0 Yes [id number] 400mg Take 1 [facility] 400 mg 1-14 capsule by ity of capsule 00:00: mouth 3 (three) Medical times Branch daily. QUEtiapine 2020-0 Yes [id number] 100mg Take 1 [facility] 100 mg 1-14 tablet by ity of tablet 00:00: mouth at [place] 00 bedtime. Medical Branch SERTraline 2020-0 Yes [id number] 100mg Take 1 [facility] 100 mg 1-14 tablet by ity of tablet 00:00: mouth [place] 00 every Medical morning. Branch tamsulosin 2020-0 Yes [id number] .4mg Take 1 [facility] 0.4 mg 24 1-14 capsule by ity of hr capsule 00:00: mouth [place] 00 daily. Medical Branch traZODone 2020-0 Yes [id number] 50mg Take 1 [facility] [place] 50 mg 1-14 tablet by ity of tablet 00:00: mouth at [place] 00 bedtime. Medical Branch levETIRAcet 2020-0 Yes [id number] 500mg Take 1 [facility] am 500 mg 1-14 tablet by ity o f tablet 00:00: mouth 2 (two) Medical times Branch daily. atorvastati 2020-0 Yes [id number] 80mg Take 1 [facility] n 80 mg 1-14 tablet by ity of tablet 00:00: mouth at [place] 00 bedtime. Medical Branch blood sugar 2020-0 Yes [id number] Use BID, [facility] diagnostic 1-14 DX E11.9 ity o f (BLOOD 00:00: (Brand [place] GLUCOSE 00 upon Medical TEST) strip insurance [employer] [facility]) gabapentin 2020-0 Yes [id number] 400mg Take 1 [facility] 400 mg 1-14 capsule by ity of capsule 00:00: mouth 3 [place] 00 (three) Medical times Branch daily. QUEtiapine 2020-0 Yes [id number] 100mg Take 1 [facility] 100 mg 1-14 tablet by ity of tablet 00:00: mouth at [place] 00 bedtime. Medical Branch SERTraline 2020-0 Yes [id number] 100mg Take 1 [facility] 100 mg 1-14 tablet by ity of tablet 00:00: mouth [place] 00 every Medical morning. Branch tamsulosin 2020-0 Yes [id number] .4mg Take 1 [facility] 0.4 mg 24 1-14 capsule by ity of hr capsule 00:00: mouth [place] 00 daily. Medical Branch traZODone 2020-0 Yes [id number] 50mg Take 1 [facility] [place] 50 mg 1-14 tablet by ity of tablet 00:00: mouth at [place] 00 bedtime. Medical Branch levETIRAcet 2020-0 Yes [id number] 500mg Take 1 [facility] am 500 mg 1-14 tablet by ity o f tablet 00:00: mouth 2 [place] (two) Medical times Branch daily. atorvastati 2020-0 Yes [id number] 80mg Take 1 [facility] n 80 mg 1-14 tablet by ity of tablet 00:00: mouth at [place] [address] bedtime. Medical Branch blood sugar 2020-0 Yes [id number] Use BID, [facility] diagnostic 1-14 DX E11.9 ity o f (BLOOD 00:00: (Brand [place] GLUCOSE 00 upon Medical TEST) strip insurance [employer] [facility] [employer]) gabapentin 2020-0 Yes [id number] 400mg Take 1 [facility] 400 mg 1-14 capsule by [facility] capsule 00:00: mouth 3 [place] (three) Medical times Branch daily. QUEtiapine 2020-0 Yes [id number] 100mg Take 1 [facility] 100 mg 1-14 tablet by [facility] of tablet 00:00: mouth at [place] 00 bedtime. Medical Branch SERTraline 2020-0 Yes [id number] 100mg Take 1 [facility] 100 mg 1-14 tablet by [facility] of tablet 00:00: mouth [place] 00 every Medical morning. Branch tamsulosin 2020-0 Yes [id number] .4mg Take 1 [facility] 0.4 mg 24 1-14 capsule by [facility] of hr capsule 00:00: mouth [place] 00 daily. Medical [facility] traZODone 2020-0 Yes [id number] 50mg Take 1 [facility] 50 mg 1-14 tablet by [facility] tablet 00:00: mouth at [place] 00 bedtime. Medical [facility] levETIRAcet 2020-0 Yes [id number] 500mg Take 1 [facility] am 500 mg 1-14 tablet by [facility] o f tablet 00:00: mouth 2 (two) Medical times Branch daily. atorvastati 2020-0 Yes [id number] 80mg Take 1 [facility] n 80 mg 1-14 tablet by [facility] of tablet 00:00: mouth at [place] 00 bedtime. Medical [facility] blood sugar 2020-0 Yes [id number] Use BID, [facility] diagnostic 1-14 DX E11.9 [facility] o f (BLOOD 00:00: (Brand [place] GLUCOSE 00 upon Medical TEST) strip insurance [facility]) gabapentin 2020-0 Yes [id number] 400mg Take 1 [facility] 400 mg 1-14 capsule by [facility] of capsule 00:00: mouth 3 (three) Medical times Branch daily. QUEtiapine 2020-0 Yes [id number] 100mg Take 1 [facility] 100 mg 1-14 tablet by [facility] of tablet 00:00: mouth at [place] 00 bedtime. Medical [facility] SERTraline 2020-0 Yes [id number] 100mg Take 1 [facility] 100 mg 1-14 tablet by [facility] of tablet 00:00: mouth [place] 00 every Medical morning. Branch tamsulosin 2020-0 Yes [id number] .4mg Take 1 [facility] 0.4 mg 24 1-14 capsule by [facility] of hr capsule 00:00: mouth 00 daily. Medical Branch traZODone 2020-0 Yes [id number] 50mg Take 1 [facility] 50 mg 1-14 tablet by [facility] tablet 00:00: mouth at [place] 00 bedtime. Medical [facility] levETIRAcet 2020-0 Yes [id number] 500mg Take 1 [facility] am 500 mg 1-14 tablet by [facility] o f tablet 00:00: mouth 2 00 (two) Medical times Branch daily. atorvastati 2020-0 Yes [id number] 80mg Take 1 [facility] n 80 mg 1-14 tablet by [facility] of tablet 00:00: mouth at [place] 00 bedtime. Medical [facility] blood sugar 2020-0 Yes [id number] Use BID, [facility] diagnostic 1-14 DX E11.9 [facility] o f (BLOOD 00:00: (Brand [place] GLUCOSE 00 upon Medical TEST) strip insurance [facility]) gabapentin 2020-0 Yes [id number] 400mg Take 1 [facility] 400 mg 1-14 capsule by [facility] of capsule 00:00: mouth 3 [place] 00 (three) Medical times Branch daily. Pioglitazon 2020-0 Yes [id number] 1{tbl} Take 1 [facility] e-Metformin 1-14 tablet by [facility] of 15-1,000 mg 00:00: mouth 2 [place] [facility] 00 (two) Medical times Branch daily with meals. QUEtiapine 2020-0 Yes [id number] 100mg Take 1 [facility] 100 mg 1-14 tablet by [facility] of tablet 00:00: mouth at [place] 00 bedtime. Medical Branch SERTraline 2020-0 Yes [id number] 100mg Take 1 [facility] 100 mg 1-14 tablet by [facility] of tablet 00:00: mouth [place] 00 every Medical morning. Branch tamsulosin 2020-0 Yes [id number] .4mg Take 1 [facility] 0.4 mg 24 1-14 capsule by [facility] of hr capsule 00:00: mouth [place] 00 daily. Medical Branch traZODone 2020-0 Yes [id number] 50mg Take 1 [facility] 50 mg 1-14 tablet by [facility] of tablet 00:00: mouth at [place] 00 bedtime. Medical [facility] levETIRAcet 2020-0 Yes [id number] 500mg Take 1 [facility] am 500 mg 1-14 tablet by [facility] o f tablet 00:00: mouth 2 [place] 00 (two) Medical times Branch daily. atorvastati 2020-0 Yes [id number] 80mg Take 1 [facility] n 80 mg 1-14 tablet by [facility] of tablet 00:00: mouth at [place] 00 bedtime. Medical Branch blood sugar 2020-0 Yes [id number] Use BID, [facility] diagnostic 1-14 DX E11.9 [facility] o f (BLOOD 00:00: ([facility] GLUCOSE 00 upon Medical TEST) strip insurance [facility]) gabapentin 2020-0 Yes [id number] 400mg Take 1 [facility] 400 mg 1-14 capsule by it[facility] of capsule 00:00: mouth 3 [place] 00 (three) Medical times Branch daily. Pioglitazon 2020-0 Yes [id number] 1{tbl} Take 1 [facility] e-Metformin 1-14 tablet by it[facility] of 15-1,000 mg 00:00: mouth 2 [place] [facility] 00 (two) Medical times Branch daily with meals. QUEtiapine 2020-0 Yes [id number] 100mg Take 1 [facility] 100 mg 1-14 tablet by [facility] of tablet 00:00: mouth at [place] 00 bedtime. Medical Branch SERTraline 2020-0 Yes [id number] 100mg Take 1 [facility] 100 mg 1-14 tablet by [facility] of tablet 00:00: mouth [place] 00 every Medical morning. Branch tamsulosin 2020-0 Yes [id number] .4mg Take 1 [facility] 0.4 mg 24 1-14 capsule by it[facility] of hr capsule 00:00: mouth [place] 00 daily. Medical Branch traZODone 2020-0 Yes [id number] 50mg Take 1 [facility] 50 mg 1-14 tablet by [facility] of tablet 00:00: mouth at [place] 00 bedtime. Medical Branch levETIRAcet 2020-0 Yes [id number] 500mg Take 1 [facility] am 500 mg 1-14 tablet by it[facility] o f tablet 00:00: mouth 2 [place] 00 (two) Medical times Branch daily. atorvastati 2020-0 Yes [id number] 80mg Take 1 [facility] n 80 mg 1-14 tablet by it[facility] of tablet 00:00: mouth at [place] 00 bedtime. Medical Branch blood sugar 2020-0 Yes [id number] Use BID, [facility] diagnostic 1-14 DX E11.9 it[facility] o f (BLOOD 00:00: (Brand [place] GLUCOSE 00 upon Medical TEST) strip insurance [facility]) gabapentin 2020-0 Yes [id number] 400mg Take 1 [facility] 400 mg 1-14 capsule by it[facility] of capsule 00:00: mouth 3 [place] 00 (three) Medical times Branch daily. Pioglitazon 2020-0 Yes [id number] 1{tbl} Take 1 [facility] e-Metformin 1-14 tablet by it[facility] of 15-1,000 mg 00:00: mouth 2 [place] [facility] 00 (two) Medical times Branch daily with meals. QUEtiapine 2020-0 Yes [id number] 100mg Take 1 [facility] 100 mg 1-14 tablet by it[facility] of tablet 00:00: mouth at [place] 00 bedtime. Medical Branch SERTraline 2020-0 Yes [id number] 100mg Take 1 [facility] 100 mg 1-14 tablet by it[facility] of tablet 00:00: mouth [place] 00 every Medical morning. Branch tamsulosin 2020-0 Yes [id number] .4mg Take 1 [facility] 0.4 mg 24 1-14 capsule by it[facility] of hr capsule 00:00: mouth [place] 00 daily. Medical Branch traZODone 2020-0 Yes [id number] 50mg Take 1 [facility] 50 mg 1-14 tablet by [facility] of tablet 00:00: mouth at [place] 00 bedtime. Medical Branch levETIRAcet 2020-0 Yes [id number] 500mg Take 1 [facility] am 500 mg 1-14 tablet by it[facility] o f tablet 00:00: mouth 2 [place] 00 (two) Medical times Branch daily. atorvastati 2020-0 Yes [id number] 80mg Take 1 [facility] n 80 mg 1-14 tablet by it[facility] of tablet 00:00: mouth at [place] 00 bedtime. Medical Branch blood sugar 2020-0 Yes [id number] Use BID, [facility] diagnostic 1-14 DX E11.9 it[facility] o f (BLOOD 00:00: (Brand [place] GLUCOSE 00 upon Medical TEST) strip insurance [facility]) gabapentin 2020-0 Yes [id number] 400mg Take 1 [facility] 400 mg 1-14 capsule by ity of capsule 00:00: mouth 3 [place] (three) Medical times Branch daily. Pioglitazon 2020-0 Yes [id number] 1{tbl} Take 1 [facility] e-Metformin 1-14 tablet by ity of 15-1,000 mg 00:00: mouth 2 [place] [facility] 00 (two) Medical times Branch daily with meals. QUEtiapine 2020-0 Yes [id number] 100mg Take 1 [facility] 100 mg 1-14 tablet by it[facility] of tablet 00:00: mouth at [place] 00 bedtime. Medical Branch SERTraline 2020-0 Yes [id number] 100mg Take 1 [facility] 100 mg 1-14 tablet by ity of tablet 00:00: mouth [place] 00 every Medical morning. Branch tamsulosin 2020-0 Yes [id number] .4mg Take 1 [facility] 0.4 mg 24 1-14 capsule by ity of hr capsule 00:00: mouth [place] 00 daily. Medical Branch traZODone 2020-0 Yes [id number] 50mg Take 1 [facility] 50 mg 1-14 tablet by it[facility] of tablet 00:00: mouth at [place] 00 bedtime. Medical Branch levETIRAcet 2020-0 Yes [id number] 500mg Take 1 [facility] am 500 mg 1-14 tablet by it[facility] o f tablet 00:00: mouth 2 [place] 00 (two) Medical times Branch daily. atorvastati 2020-0 Yes [id number] 80mg Take 1 [facility] n 80 mg 1-14 tablet by it[facility] of tablet 00:00: mouth at [place] 00 bedtime. Medical Branch blood sugar 2020-0 Yes [id number] Use BID, [facility] diagnostic 1-14 DX E11.9 it[facility] o f (BLOOD 00:00: (Brand [place] GLUCOSE 00 upon Medical TEST) strip insurance [facility] [employer] [facility]) gabapentin 2020-0 Yes [id number] 400mg Take 1 [facility] 400 mg 1-14 capsule by it[facility] of capsule 00:00: mouth 3 [place] 00 (three) Medical times Branch daily. Pioglitazon 2020-0 Yes [id number] 1{tbl} Take 1 [facility] e-Metformin 1-14 tablet by it[facility] of 15-1,000 mg 00:00: mouth 2 [place] [facility] 00 (two) Medical times Branch daily with meals. QUEtiapine 2020-0 Yes [id number] 100mg Take 1 [facility] 100 mg 1-14 tablet by it[facility] of tablet 00:00: mouth at [place] 00 bedtime. Medical Branch SERTraline 2020-0 Yes [id number] 100mg Take 1 [facility] 100 mg 1-14 tablet by [facility] of tablet 00:00: mouth [place] 00 every Medical morning. Branch tamsulosin 2019-0 Yes [id number] .4mg Take 1 [facility] 0.4 mg 24 1-14 capsule by it[facility] of hr capsule 00:00: mouth [place] 00 daily. Medical Branch traZODone 2019-0 Yes [id number] 50mg Take 1 [facility] 50 mg 1-14 tablet by [facility] of tablet 00:00: mouth at [place] 00 bedtime. Medical Branch levETIRAcet 2020-0 Yes [id number] 500mg Take 1 [facility] am 500 mg 1-14 tablet by ity o f tablet 00:00: mouth 2 [place] 00 (two) Medical times Branch daily. atorvastati 2020-0 Yes [id number] 80mg Take 1 [facility] n 80 mg 1-14 tablet by ity of tablet 00:00: mouth at [place] 00 bedtime. Medical Branch blood sugar 2019-0 Yes [id number] Use BID, [facility] diagnostic 1-14 DX E11.9 ity o f (BLOOD 00:00: (Brand [place] GLUCOSE 00 upon Medical TEST) strip insurance [employer] [facility]) gabapentin 2020-0 Yes [id number] 400mg Take 1 [facility] 400 mg 1-14 capsule by it[facility] of capsule 00:00: mouth 3 [place] 00 (three) Medical times Branch daily. Pioglitazon 2020-0 Yes [id number] 1{tbl} Take 1 [facility] e-Metformin 1-14 tablet by ity of 15-1,000 mg 00:00: mouth 2 [place] [facility] 00 (two) Medical times Branch daily with meals. QUEtiapine 2020-0 Yes [id number] 100mg Take 1 [facility] 100 mg 1-14 tablet by ity of tablet 00:00: mouth at [place] 00 bedtime. Medical Branch SERTraline 2020-0 Yes [id number] 100mg Take 1 [facility] 100 mg 1-14 tablet by ity of tablet 00:00: mouth [place] 00 every Medical morning. Branch tamsulosin 2020-0 Yes [id number] .4mg Take 1 [facility] 0.4 mg 24 1-14 capsule by ity of hr capsule 00:00: mouth [place] 00 daily. Medical Branch traZODone 2020-0 Yes [id number] 50mg Take 1 [facility] 50 mg 1-14 tablet by it[facility] of tablet 00:00: mouth at [place] 00 bedtime. Medical Branch levETIRAcet 2020-0 Yes [id number] 500mg Take 1 [facility] am 500 mg 1-14 tablet by ity o f tablet 00:00: mouth 2 [place] 00 (two) Medical times Branch daily. atorvastati 2020-0 Yes [id number] 80mg Take 1 [facility] n 80 mg 1-14 tablet by it[facility] of tablet 00:00: mouth at [place] 00 bedtime. Medical Branch blood sugar 2020-0 Yes [id number] Use BID, [facility] diagnostic 1-14 DX E11.9 ity o f (BLOOD 00:00: (Brand [place] GLUCOSE 00 upon Medical TEST) strip insurance [employer] [facility]) gabapentin 2020-0 Yes [id number] 400mg Take 1 [facility] 400 mg 1-14 capsule by it[facility] of capsule 00:00: mouth 3 [place] 00 (three) Medical times Branch daily. Pioglitazon 2020-0 Yes [id number] 1{tbl} Take 1 [facility] e-Metformin 1-14 tablet by ity of 15-1,000 mg 00:00: mouth 2 [place] [facility] 00 (two) Medical times Branch daily with meals. QUEtiapine 2020-0 Yes [id number] 100mg Take 1 [facility] 100 mg 1-14 tablet by ity of tablet 00:00: mouth at [place] 00 bedtime. Medical Branch SERTraline 2020-0 Yes [id number] 100mg Take 1 [facility] 100 mg 1-14 tablet by ity of tablet 00:00: mouth [place] 00 every Medical morning. Branch tamsulosin 2020-0 Yes [id number] .4mg Take 1 [facility] 0.4 mg 24 1-14 capsule by ity of hr capsule 00:00: mouth [place] 00 daily. Medical Branch traZODone 2020-0 Yes [id number] 50mg Take 1 [facility] 50 mg 1-14 tablet by ity of tablet 00:00: mouth at [place] 00 bedtime. Medical Branch levETIRAcet 2020-0 Yes [id number] 500mg Take 1 [facility] am 500 mg 1-14 tablet by ity o f tablet 00:00: mouth 2 [place] 00 (two) Medical times Branch daily. atorvastati 2020-0 Yes [id number] 80mg Take 1 [facility] n 80 mg 1-14 tablet by ity of tablet 00:00: mouth at [place] 00 bedtime. Medical Branch blood sugar 2020-0 Yes [id number] Use BID, [facility] diagnostic 1-14 DX E11.9 ity o f (BLOOD 00:00: (Brand [place] GLUCOSE 00 upon Medical TEST) strip insurance [facility] [employer] [facility]) gabapentin 2020-0 Yes [id number] 400mg Take 1 [facility] 400 mg 1-14 capsule by ity of capsule 00:00: mouth 3 [place] 00 (three) Medical times Branch daily. Pioglitazon 2020-0 Yes [id number] 1{tbl} Take 1 [facility] e-Metformin 1-14 tablet by ity of 15-1,000 mg 00:00: mouth 2 [place] [facility] 00 (two) Medical times Branch daily with meals. QUEtiapine 2020-0 Yes [id number] 100mg Take 1 [facility] 100 mg 1-14 tablet by ity of tablet 00:00: mouth at [place] 00 bedtime. Medical Branch SERTraline 2020-0 Yes [id number] 100mg Take 1 [facility] 100 mg 1-14 tablet by ity of tablet 00:00: mouth [place] 00 every Medical morning. Branch tamsulosin 2020-0 Yes [id number] .4mg Take 1 [facility] 0.4 mg 24 1-14 capsule by ity of hr capsule 00:00: mouth [place] 00 daily. Medical Branch traZODone 2020-0 Yes [id number] 50mg Take 1 [facility] 50 mg 1-14 tablet by ity of tablet 00:00: mouth at [place] 00 bedtime. Medical Branch levETIRAcet 2020-0 Yes [id number] 500mg Take 1 [facility] am 500 mg 1-14 tablet by ity o f tablet 00:00: mouth 2 [place] 00 (two) Medical times Branch daily. atorvastati 2020-0 Yes [id number] 80mg Take 1 [facility] n 80 mg 1-14 tablet by ity of tablet 00:00: mouth at [place] 00 bedtime. Medical Branch blood sugar 2020-0 Yes [id number] Use BID, [facility] diagnostic 1-14 DX E11.9 ity o f (BLOOD 00:00: (Brand [place] GLUCOSE 00 upon Medical TEST) strip insurance [employer] [facility]) gabapentin 2020-0 Yes [id number] 400mg Take 1 [facility] 400 mg 1-14 capsule by ity of capsule 00:00: mouth 3 [place] (three) Medical times Branch daily. Pioglitazon 2020-0 Yes [id number] 1{tbl} Take 1 [facility] e-Metformin 1-14 tablet by ity of 15-1,000 mg 00:00: mouth 2 [place] [facility] 00 (two) Medical times Branch daily with meals. QUEtiapine 2020-0 Yes [id number] 100mg Take 1 [facility] 100 mg 1-14 tablet by ity of tablet 00:00: mouth at [place] 00 bedtime. Medical Branch SERTraline 2020-0 Yes [id number] 100mg Take 1 [facility] 100 mg 1-14 tablet by ity of tablet 00:00: mouth [place] 00 every Medical morning. Branch tamsulosin 2020-0 Yes [id number] .4mg Take 1 [facility] 0.4 mg 24 1-14 capsule by ity of hr capsule 00:00: mouth [place] 00 daily. Medical Branch traZODone 2020-0 Yes [id number] 50mg Take 1 [facility] 50 mg 1-14 tablet by ity of tablet 00:00: mouth at [place] 00 bedtime. Medical Branch levETIRAcet 2020-0 Yes [id number] 500mg Take 1 [facility] am 500 mg 1-14 tablet by ity o f tablet 00:00: mouth 2 [place] 00 (two) Medical times Branch daily. atorvastati 2020-0 Yes [id number] 80mg Take 1 [facility] n 80 mg 1-14 tablet by ity of tablet 00:00: mouth at [place] 00 bedtime. Medical Branch blood sugar 2020-0 Yes [id number] Use BID, [facility] diagnostic 1-14 DX E11.9 ity o f (BLOOD 00:00: (Brand [place] GLUCOSE 00 upon Medical TEST) strip insurance [employer] [facility] [employer]) gabapentin 2020-0 Yes [id number] 400mg Take 1 [facility] 400 mg 1-14 capsule by ity of capsule 00:00: mouth 3 [place] 00 (three) Medical times Branch daily. Pioglitazon 2020-0 Yes [id number] 1{tbl} Take 1 [facility] e-Metformin 1-14 tablet by ity of 15-1,000 mg 00:00: mouth 2 [place] [facility] 00 (two) Medical times Branch daily with meals. QUEtiapine 2020-0 Yes [id number] 100mg Take 1 [facility] 100 mg 1-14 tablet by ity of tablet 00:00: mouth at [place] 00 bedtime. Medical Branch SERTraline 2019-0 Yes [id number] 100mg Take 1 [facility] 100 mg 1-14 tablet by ity of tablet 00:00: mouth [place] 00 every Medical morning. Branch tamsulosin 2019-0 Yes [id number] .4mg Take 1 [facility] 0.4 mg 24 1-14 capsule by ity of hr capsule 00:00: mouth [place] 00 daily. Medical Branch traZODone 2019-0 Yes [id number] 50mg Take 1 [facility] 50 mg 1-14 tablet by ity of tablet 00:00: mouth at [place] 00 bedtime. Medical Branch levETIRAcet 2019-0 Yes [id number] 500mg Take 1 [facility] am 500 mg 1-14 tablet by ity o f tablet 00:00: mouth 2 [place] 00 (two) Medical times Branch daily. atorvastati 2020-0 Yes [id number] 80mg Take 1 [facility] n 80 mg 1-14 tablet by ity of tablet 00:00: mouth at [place] 00 bedtime. Medical Branch blood sugar 2019-0 Yes [id number] Use BID, [facility] diagnostic 1-14 DX E11.9 ity o f (BLOOD 00:00: (Brand [place] GLUCOSE 00 upon Medical TEST) strip insurance [employer] [facility] [employer]) gabapentin 2020-0 Yes [id number] 400mg Take 1 [facility] 400 mg 1-14 capsule by ity of capsule 00:00: mouth 3 [place] 00 (three) Medical times Branch daily. Pioglitazon 2020-0 Yes [id number] 1{tbl} Take 1 [facility] e-Metformin 1-14 tablet by ity of 15-1,000 mg 00:00: mouth 2 [place] [facility] 00 (two) Medical times Branch daily with meals. QUEtiapine 2020-0 Yes [id number] 100mg Take 1 [facility] 100 mg 1-14 tablet by ity of tablet 00:00: mouth at [place] 00 bedtime. Medical Branch SERTraline 2020-0 Yes [id number] 100mg Take 1 [facility] 100 mg 1-14 tablet by ity of tablet 00:00: mouth [place] 00 every Medical morning. Branch tamsulosin 2020-0 Yes [id number] .4mg Take 1 [facility] 0.4 mg 24 1-14 capsule by ity of hr capsule 00:00: mouth [place] 00 daily. Medical Branch traZODone 2020-0 Yes [id number] 50mg Take 1 [facility] 50 mg 1-14 tablet by ity of tablet 00:00: mouth at [place] 00 bedtime. Medical Branch levETIRAcet 2020-0 Yes [id number] 500mg Take 1 [facility] am 500 mg 1-14 tablet by ity o f tablet 00:00: mouth 2 [place] 00 (two) Medical times Branch daily. atorvastati 2020-0 Yes [id number] 80mg Take 1 [facility] n 80 mg 1-14 tablet by ity of tablet 00:00: mouth at [place] 00 bedtime. Medical Branch blood sugar 2020-0 Yes [id number] Use BID, [facility] diagnostic 1-14 DX E11.9 ity o f (BLOOD 00:00: (Brand [place] GLUCOSE 00 upon Medical TEST) strip insurance [facility] [employer] [facility]) gabapentin 2020-0 Yes [id number] 400mg Take 1 [facility] 400 mg 1-14 capsule by ity of capsule 00:00: mouth 3 [place] 00 (three) Medical times Branch daily. Pioglitazon 2020-0 Yes [id number] 1{tbl} Take 1 [facility] e-Metformin 1-14 tablet by ity of 15-1,000 mg 00:00: mouth 2 [place] [facility] 00 (two) Medical times Branch daily with meals. QUEtiapine 2020-0 Yes [id number] 100mg Take 1 [facility] 100 mg 1-14 tablet by ity of tablet 00:00: mouth at [place] 00 bedtime. Medical Branch SERTraline 2020-0 Yes [id number] 100mg Take 1 [facility] 100 mg 1-14 tablet by ity of tablet 00:00: mouth [place] 00 every Medical morning. Branch tamsulosin 2020-0 Yes [id number] .4mg Take 1 [facility] 0.4 mg 24 1-14 capsule by ity of hr capsule 00:00: mouth [place] 00 daily. Medical Branch traZODone 2020-0 Yes [id number] 50mg Take 1 [facility] 50 mg 1-14 tablet by ity of tablet 00:00: mouth at [place] 00 bedtime. Medical Branch levETIRAcet 2020-0 Yes [id number] 500mg Take 1 [facility] am 500 mg 1-14 tablet by ity o f tablet 00:00: mouth 2 [place] 00 (two) Medical times Branch daily. atorvastati 2020-0 Yes [id number] 80mg Take 1 [facility] n 80 mg 1-14 tablet by ity of tablet 00:00: mouth at [place] 00 bedtime. Medical Branch blood sugar 2020-0 Yes [id number] Use BID, [facility] diagnostic 1-14 DX E11.9 ity o f (BLOOD 00:00: (Brand [place] GLUCOSE 00 upon Medical TEST) strip insurance [employer] [facility] [employer]) gabapentin 2020-0 Yes [id number] 400mg Take 1 [facility] 400 mg 1-14 capsule by ity of capsule 00:00: mouth 3 [place] 00 (three) Medical times Branch daily. Pioglitazon 2020-0 Yes [id number] 1{tbl} Take 1 [facility] e-Metformin 1-14 tablet by ity of 15-1,000 mg 00:00: mouth 2 [place] [facility] 00 (two) Medical times Branch daily with meals. QUEtiapine 2020-0 Yes [id number] 100mg Take 1 [facility] 100 mg 1-14 tablet by ity of tablet 00:00: mouth at [place] 00 bedtime. Medical Branch SERTraline 2020-0 Yes [id number] 100mg Take 1 [facility] 100 mg 1-14 tablet by ity of tablet 00:00: mouth [place] 00 every Medical morning. Branch tamsulosin 2020-0 Yes [id number] .4mg Take 1 [facility] 0.4 mg 24 1-14 capsule by ity of hr capsule 00:00: mouth [place] 00 daily. Medical Branch traZODone 2020-0 Yes [id number] 50mg Take 1 [facility] 50 mg 1-14 tablet by ity of tablet 00:00: mouth at [place] 00 bedtime. Medical Branch levETIRAcet 2020-0 Yes [id number] 500mg Take 1 [facility] am 500 mg 1-14 tablet by ity o f tablet 00:00: mouth 2 [place] 00 (two) Medical times Branch daily. atorvastati 2020-0 Yes [id number] 80mg Take 1 [facility] n 80 mg 1-14 tablet by ity of tablet 00:00: mouth at [place] 00 bedtime. Medical Branch blood sugar 2020-0 Yes [id number] Use BID, [facility] diagnostic 1-14 DX E11.9 ity o f (BLOOD 00:00: (Brand [place] GLUCOSE 00 upon Medical TEST) strip insurance [facility] [employer] [facility] [employer]) gabapentin 2019-0 Yes [id number] 400mg Take 1 [facility] 400 mg 1-14 capsule by ity of capsule 00:00: mouth 3 [place] (three) Medical times Branch daily. Pioglitazon 2019-0 Yes [id number] 1{tbl} Take 1 [facility] e-Metformin 1-14 tablet by ity of 15-1,000 mg 00:00: mouth 2 [place] [facility] 00 (two) Medical times Branch daily with meals. QUEtiapine 2020-0 Yes [id number] 100mg Take 1 [facility] 100 mg 1-14 tablet by ity of tablet 00:00: mouth at [place] 00 bedtime. Medical Branch SERTraline 2019-0 Yes [id number] 100mg Take 1 [facility] 100 mg 1-14 tablet by ity of tablet 00:00: mouth [place] 00 every Medical morning. Branch tamsulosin 2020-0 Yes [id number] .4mg Take 1 [facility] 0.4 mg 24 1-14 capsule by ity of hr capsule 00:00: mouth [place] 00 daily. Medical Branch traZODone 2020-0 Yes [id number] 50mg Take 1 [facility] [place] 50 mg 1-14 tablet by ity of tablet 00:00: mouth at [place] 00 bedtime. Medical Branch levETIRAcet 2019-0 Yes [id number] 500mg Take 1 [facility] am 500 mg 1-14 tablet by ity o f tablet 00:00: mouth 2 [place] 00 (two) Medical times Branch daily. atorvastati 2020-0 Yes [id number] 80mg Take 1 [facility] n 80 mg 1-14 tablet by ity of tablet 00:00: mouth at [place] 00 bedtime. Medical Branch blood sugar 2020-0 Yes [id number] Use BID, [facility] diagnostic 1-14 DX E11.9 ity o f (BLOOD 00:00: (Brand [place] GLUCOSE 00 upon Medical TEST) strip insurance [facility] [employer] [facility] [employer]) gabapentin 2020-0 Yes [id number] 400mg Take 1 [facility] 400 mg 1-14 capsule by ity of capsule 00:00: mouth 3 [place] 00 (three) Medical times Branch daily. Pioglitazon 2020-0 Yes [id number] 1{tbl} Take 1 [facility] e-Metformin 1-14 tablet by ity of 15-1,000 mg 00:00: mouth 2 [place] [facility] 00 (two) Medical times Branch daily with meals. QUEtiapine 2020-0 Yes [id number] 100mg Take 1 [facility] 100 mg 1-14 tablet by ity of tablet 00:00: mouth at [place] 00 bedtime. Medical Branch SERTraline 2020-0 Yes [id number] 100mg Take 1 [facility] 100 mg 1-14 tablet by ity of tablet 00:00: mouth [place] 00 every Medical morning. Branch tamsulosin 2020-0 Yes [id number] .4mg Take 1 [facility] 0.4 mg 24 1-14 capsule by ity of hr capsule 00:00: mouth [place] 00 daily. Medical Branch traZODone 2020-0 Yes [id number] 50mg Take 1 [facility] 50 mg 1-14 tablet by ity of tablet 00:00: mouth at [place] 00 bedtime. Medical Branch levETIRAcet 2020-0 Yes [id number] 500mg Take 1 [facility] am 500 mg 1-14 tablet by ity o f tablet 00:00: mouth 2 [place] 00 (two) Medical times Branch daily. atorvastati 2020-0 Yes [id number] 80mg Take 1 [facility] n 80 mg 1-14 tablet by ity of tablet 00:00: mouth at [place] 00 bedtime. Medical Branch blood sugar 2020-0 Yes [id number] Use BID, [facility] diagnostic 1-14 DX E11.9 ity o f (BLOOD 00:00: (Brand [place] GLUCOSE 00 upon Medical TEST) strip insurance [employer] [facility] [employer]) gabapentin 2020-0 Yes [id number] 400mg Take 1 [facility] 400 mg 1-14 capsule by ity of capsule 00:00: mouth 3 [place] 00 (three) Medical times Branch daily. Pioglitazon 2020-0 Yes [id number] 1{tbl} Take 1 [facility] e-Metformin 1-14 tablet by ity of 15-1,000 mg 00:00: mouth 2 [place] [facility] 00 (two) Medical times Branch daily with meals. QUEtiapine 2020-0 Yes [id number] 100mg Take 1 [facility] 100 mg 1-14 tablet by ity of tablet 00:00: mouth at [place] 00 bedtime. Medical Branch SERTraline 2020-0 Yes [id number] 100mg Take 1 [facility] 100 mg 1-14 tablet by ity of tablet 00:00: mouth [place] 00 every Medical morning. Branch tamsulosin 2020-0 Yes [id number] .4mg Take 1 [facility] 0.4 mg 24 1-14 capsule by [facility] hr capsule 00:00: mouth [place] 00 daily. [facility] traZODone 2020-0 Yes [id number] 50mg Take 1 [facility] 50 mg 1-14 tablet by [facility] tablet 00:00: mouth at [place] 00 bedtime. [facility] levETIRAcet 2020-0 Yes [id number] 500mg Take 1 [facility] am 500 mg 1-14 tablet by [facility] o f tablet 00:00: mouth 2 [place] 00 (two) Medical times Branch daily. atorvastati 2020-0 Yes [id number] 80mg Take 1 [facility] n 80 mg 1-14 tablet by [facility] of tablet 00:00: mouth at [place] 00 bedtime. [facility] blood sugar 2020-0 Yes [id number] Use BID, [facility] diagnostic 1-14 DX E11.9 it[facility] o f (BLOOD 00:00: ([facility] GLUCOSE 00 upon Medical TEST) strip insurance [facility]) gabapentin 2020-0 Yes [id number] 400mg Take 1 [facility] 400 mg 1-14 capsule by [facility] of capsule 00:00: mouth 3 [place] 00 (three) Medical times Branch daily. Pioglitazon 2020-0 Yes [id number] 1{tbl} Take 1 [facility] e-Metformin 1-14 tablet by ity of 15-1,000 mg 00:00: mouth 2 [place] TM24 00 (two) Medical times Branch daily with meals. QUEtiapine 2020-0 Yes [id number] 100mg Take 1 [facility] 100 mg 1-14 tablet by [facility] of tablet 00:00: mouth at [place] [address] bedtime. Medical Branch SERTraline 2020-0 Yes [id number] 100mg Take 1 [facility] 100 mg 1-14 tablet by [facility] of tablet 00:00: mouth [place] 00 every Medical morning. Branch tamsulosin 2020-0 Yes [id number] .4mg Take 1 [facility] 0.4 mg 24 1-14 capsule by [facility] of hr capsule 00:00: mouth [place] 00 daily. [facility] traZODone 2020-0 Yes [id number] 50mg Take 1 [facility] 50 mg 1-14 tablet by [facility] of tablet 00:00: mouth at [place] [address] bedtime. Medical Branch levETIRAcet 2020-0 Yes [id number] 500mg Take 1 [facility] am 500 mg 1-14 tablet by [facility] o f tablet 00:00: mouth 2 (two) Medical times Branch daily. atorvastati 2020-0 Yes [id number] 80mg Take 1 [facility] n 80 mg 1-14 tablet by [facility] of tablet 00:00: mouth at [place] [address] bedtime. Medical Branch blood sugar 2020-0 Yes [id number] Use BID, [facility] diagnostic 1-14 DX E11.9 it[facility] o f (BLOOD 00:00: ([facility] [place] GLUCOSE 00 upon Medical TEST) strip insurance [facility]) gabapentin 2020-0 Yes [id number] 400mg Take 1 [facility] 400 mg 1-14 capsule by [facility] of capsule 00:00: mouth 3 (three) Medical times Branch daily. QUEtiapine 2020-0 Yes [id number] 100mg Take 1 [facility] 100 mg 1-14 tablet by [facility] of tablet 00:00: mouth at [place] [address] bedtime. Medical Branch SERTraline 2020-0 Yes [id number] 100mg Take 1 [facility] 100 mg 1-14 tablet by [facility] of tablet 00:00: mouth [place] 00 every Medical morning. Branch tamsulosin 2020-0 Yes [id number] .4mg Take 1 [facility] 0.4 mg 24 1-14 capsule by [facility] of hr capsule 00:00: mouth [place] 00 daily. [facility] traZODone 2020-0 Yes [id number] 50mg Take 1 [facility] 50 mg 1-14 tablet by [facility] of tablet 00:00: mouth at [place] [address] bedtime. Medical [facility] levETIRAcet 2020-0 Yes [id number] 500mg Take 1 [facility] am 500 mg 1-14 tablet by [facility] o f tablet 00:00: mouth 2 00 (two) Medical times Branch daily. atorvastati 2020-0 Yes [id number] 80mg Take 1 [facility] n 80 mg 1-14 tablet by [facility] of tablet 00:00: mouth at [place] 00 bedtime. [facility] blood sugar 2020-0 Yes [id number] Use BID, [facility] diagnostic 1-14 DX E11.9 it[facility] o f (BLOOD 00:00: ([facility] [place] GLUCOSE 00 upon Medical TEST) strip insurance [facility]) gabapentin 2020-0 Yes [id number] 400mg Take 1 [facility] 400 mg 1-14 capsule by [facility] of capsule 00:00: mouth 3 (three) Medical times Branch daily. QUEtiapine 2020-0 Yes [id number] 100mg Take 1 [facility] 100 mg 1-14 tablet by it[facility] of tablet 00:00: mouth at [place] 00 bedtime. Medical Branch SERTraline 2020-0 Yes [id number] 100mg Take 1 [facility] 100 mg 1-14 tablet by [facility] of tablet 00:00: mouth [place] 00 every Medical morning. Branch tamsulosin 2020-0 Yes [id number] .4mg Take 1 [facility] 0.4 mg 24 1-14 capsule by [facility] of hr capsule 00:00: mouth [place] 00 daily. [facility] traZODone 2020-0 Yes [id number] 50mg Take 1 [facility] 50 mg 1-14 tablet by [facility] of tablet 00:00: mouth at [place] 00 bedtime. Medical Branch levETIRAcet 2020-0 Yes [id number] 500mg Take 1 [facility] am 500 mg 1-14 tablet by it[facility] o f tablet 00:00: mouth 2 (two) Medical times Branch daily. atorvastati 2020-0 Yes [id number] 80mg Take 1 [facility] n 80 mg 1-14 tablet by [facility] of tablet 00:00: mouth at [place] 00 bedtime. Medical [facility] blood sugar 2020-0 Yes [id number] Use BID, [facility] diagnostic 1-14 DX E11.9 it[facility] o f (BLOOD 00:00: ([facility] [place] GLUCOSE 00 upon Medical TEST) strip insurance [facility]) gabapentin 2020-0 Yes [id number] 400mg Take 1 [facility] 400 mg 1-14 capsule by it[facility] of capsule 00:00: mouth 3 (three) Medical times Branch daily. QUEtiapine 2020-0 Yes [id number] 100mg Take 1 [facility] 100 mg 1-14 tablet by [facility] of tablet 00:00: mouth at [place] 00 bedtime. Medical Branch SERTraline 2020-0 Yes [id number] 100mg Take 1 [facility] 100 mg 1-14 tablet by it[facility] of tablet 00:00: mouth [place] 00 every Medical morning. Branch tamsulosin 2020-0 Yes [id number] .4mg Take 1 [facility] 0.4 mg 24 1-14 capsule by it[facility] of hr capsule 00:00: mouth [place] 00 daily. Medical Branch traZODone 2020-0 Yes [id number] 50mg Take 1 [facility] 50 mg 1-14 tablet by [facility] of tablet 00:00: mouth at [place] 00 bedtime. Medical Branch levETIRAcet 2020-0 Yes [id number] 500mg Take 1 [facility] am 500 mg 1-14 tablet by it[facility] o f tablet 00:00: mouth 2 00 (two) Medical times Branch daily. atorvastati 2020-0 Yes [id number] 80mg Take 1 [facility] n 80 mg 1-14 tablet by [facility] of tablet 00:00: mouth at [place] 00 bedtime. Medical Branch blood sugar 2020-0 Yes [id number] Use BID, [facility] diagnostic 1-14 DX E11.9 it[facility] o f (BLOOD 00:00: ([facility] [place] GLUCOSE 00 upon Medical TEST) strip insurance [facility]) gabapentin 2020-0 Yes [id number] 400mg Take 1 [facility] 400 mg 1-14 capsule by it[facility] of capsule 00:00: mouth 3 00 (three) Medical times Branch daily. QUEtiapine 2020-0 Yes [id number] 100mg Take 1 [facility] 100 mg 1-14 tablet by [facility] of tablet 00:00: mouth at [place] 00 bedtime. Medical Branch SERTraline 2020-0 Yes [id number] 100mg Take 1 [facility] 100 mg 1-14 tablet by it[facility] of tablet 00:00: mouth [place] 00 every Medical morning. Branch tamsulosin 2020-0 Yes [id number] .4mg Take 1 [facility] 0.4 mg 24 1-14 capsule by [facility] of hr capsule 00:00: mouth [place] 00 daily. [facility] traZODone 2020-0 Yes [id number] 50mg Take 1 [facility] 50 mg 1-14 tablet by [facility] of tablet 00:00: mouth at [place] 00 bedtime. Medical Branch levETIRAcet 2020-0 Yes [id number] 500mg Take 1 [facility] am 500 mg 1-14 tablet by it[facility] o f tablet 00:00: mouth 2 00 (two) Medical times Branch daily. atorvastati 2020-0 Yes [id number] 80mg Take 1 [facility] n 80 mg 1-14 tablet by it[facility] of tablet 00:00: mouth at [place] 00 bedtime. Medical Branch blood sugar 2020-0 Yes [id number] Use BID, [facility] diagnostic 1-14 DX E11.9 it[facility] o f (BLOOD 00:00: ([facility] [place] GLUCOSE 00 upon Medical TEST) strip insurance [facility]) gabapentin 2020-0 Yes [id number] 400mg Take 1 [facility] 400 mg 1-14 capsule by it[facility] of capsule 00:00: mouth 3 (three) Medical times Branch daily. QUEtiapine 2020-0 Yes [id number] 100mg Take 1 [facility] 100 mg 1-14 tablet by [facility] of tablet 00:00: mouth at [place] 00 bedtime. Medical Branch SERTraline 2020-0 Yes [id number] 100mg Take 1 [facility] 100 mg 1-14 tablet by it[facility] of tablet 00:00: mouth [place] 00 every Medical morning. Branch tamsulosin 2020-0 Yes [id number] .4mg Take 1 [facility] 0.4 mg 24 1-14 capsule by [facility] of hr capsule 00:00: mouth [place] 00 daily. [facility] traZODone 2020-0 Yes [id number] 50mg Take 1 [facility] 50 mg 1-14 tablet by [facility] of tablet 00:00: mouth at [place] 00 bedtime. Medical Branch levETIRAcet 2020-0 Yes [id number] 500mg Take 1 [facility] am 500 mg 1-14 tablet by it[facility] o f tablet 00:00: mouth 2 [place] 00 (two) Medical times Branch daily. atorvastati 2020-0 Yes [id number] 80mg Take 1 [facility] n 80 mg 1-14 tablet by [facility] of tablet 00:00: mouth at [place] 00 bedtime. Medical Branch blood sugar 2020-0 Yes [id number] Use BID, [facility] diagnostic 1-14 DX E11.9 it[facility] o f (BLOOD 00:00: ([facility] [place] GLUCOSE 00 upon Medical TEST) strip insurance [facility]) gabapentin 2020-0 Yes [id number] 400mg Take 1 [facility] 400 mg 1-14 capsule by [facility] of capsule 00:00: mouth 3 [place] 00 (three) Medical times Branch daily. QUEtiapine 2020-0 Yes [id number] 100mg Take 1 [facility] 100 mg 1-14 tablet by [facility] of tablet 00:00: mouth at [place] 00 bedtime. Medical Branch SERTraline 2020-0 Yes [id number] 100mg Take 1 [facility] 100 mg 1-14 tablet by it[facility] of tablet 00:00: mouth [place] 00 every Medical morning. Branch tamsulosin 2020-0 Yes [id number] .4mg Take 1 [facility] 0.4 mg 24 1-14 capsule by it[facility] of hr capsule 00:00: mouth [place] 00 daily. [facility] Branch traZODone 2020-0 Yes [id number] 50mg Take 1 [facility] 50 mg 1-14 tablet by [facility] of tablet 00:00: mouth at [place] 00 bedtime. Medical Branch levETIRAcet 2020-0 Yes [id number] 500mg Take 1 [facility] am 500 mg 1-14 tablet by ity o f tablet 00:00: mouth 2 [place] (two) Medical times Branch daily. atorvastati 2020-0 Yes [id number] 80mg Take 1 [facility] n 80 mg 1-14 tablet by ity of tablet 00:00: mouth at [place] 00 bedtime. Medical Branch blood sugar 2020-0 Yes [id number] Use BID, [facility] diagnostic 1-14 DX E11.9 ity o f (BLOOD 00:00: ([facility] [place] GLUCOSE 00 upon Medical TEST) strip insurance [facility]) gabapentin 2020-0 Yes [id number] 400mg Take 1 [facility] 400 mg 1-14 capsule by it[facility] of capsule 00:00: mouth 3 [place] (three) Medical times Branch daily. QUEtiapine 2020-0 Yes [id number] 100mg Take 1 [facility] 100 mg 1-14 tablet by ity of tablet 00:00: mouth at [place] 00 bedtime. Medical Branch SERTraline 2020-0 Yes [id number] 100mg Take 1 [facility] 100 mg 1-14 tablet by it[facility] of tablet 00:00: mouth [place] 00 every Medical morning. Branch tamsulosin 2020-0 Yes [id number] .4mg Take 1 [facility] 0.4 mg 24 1-14 capsule by ity of hr capsule 00:00: mouth [place] 00 daily. [facility] Branch traZODone 2020-0 Yes [id number] 50mg Take 1 [facility] 50 mg 1-14 tablet by it[facility] of tablet 00:00: mouth at [place] 00 bedtime. Medical Branch levETIRAcet 2020-0 Yes [id number] 500mg Take 1 [facility] am 500 mg 1-14 tablet by ity o f tablet 00:00: mouth 2 (two) Medical times Branch daily. atorvastati 2020-0 Yes [id number] 80mg Take 1 [facility] n 80 mg 1-14 tablet by it[facility] of tablet 00:00: mouth at [place] 00 bedtime. Medical Branch blood sugar 2020-0 Yes [id number] Use BID, [facility] diagnostic 1-14 DX E11.9 ity o f (BLOOD 00:00: ([facility] [place] GLUCOSE 00 upon Medical TEST) strip insurance [facility]) gabapentin 2020-0 Yes [id number] 400mg Take 1 [facility] 400 mg 1-14 capsule by it[facility] of capsule 00:00: mouth 3 (three) Medical times Branch daily. QUEtiapine 2020-0 Yes [id number] 100mg Take 1 [facility] 100 mg 1-14 tablet by ity of tablet 00:00: mouth at [place] 00 bedtime. Medical Branch SERTraline 2020-0 Yes [id number] 100mg Take 1 [facility] 100 mg 1-14 tablet by it[facility] of tablet 00:00: mouth [place] 00 every Medical morning. Branch tamsulosin 2020-0 Yes [id number] .4mg Take 1 [facility] 0.4 mg 24 1-14 capsule by it[facility] of hr capsule 00:00: mouth 00 daily. [facility] Branch traZODone 2020-0 Yes [id number] 50mg Take 1 [facility] 50 mg 1-14 tablet by it[facility] of tablet 00:00: mouth at [place] 00 bedtime. [facility] Branch levETIRAcet 2020-0 Yes [id number] 500mg Take 1 [facility] am 500 mg 1-14 tablet by ity o f tablet 00:00: mouth 2 (two) Medical times Branch daily. atorvastati 2020-0 Yes [id number] 80mg Take 1 [facility] n 80 mg 1-14 tablet by ity of tablet 00:00: mouth at [place] 00 bedtime. Medical Branch blood sugar 2020-0 Yes [id number] Use BID, [facility] diagnostic 1-14 DX E11.9 ity o f (BLOOD 00:00: ([facility] [place] GLUCOSE 00 upon Medical TEST) strip insurance [facility]) gabapentin 2020-0 Yes [id number] 400mg Take 1 [facility] 400 mg 1-14 capsule by it[facility] of capsule 00:00: mouth 3 00 (three) Medical times Branch daily. QUEtiapine 2020-0 Yes [id number] 100mg Take 1 [facility] 100 mg 1-14 tablet by ity of tablet 00:00: mouth at [place] 00 bedtime. Medical Branch SERTraline 2020-0 Yes [id number] 100mg Take 1 [facility] 100 mg 1-14 tablet by ity of tablet 00:00: mouth [place] 00 every Medical morning. Branch tamsulosin 2020-0 Yes [id number] .4mg Take 1 [facility] 0.4 mg 24 1-14 capsule by ity of hr capsule 00:00: mouth [place] 00 daily. Medical Branch traZODone 2020-0 Yes [id number] 50mg Take 1 [facility] 50 mg 1-14 tablet by ity of tablet 00:00: mouth at [place] 00 bedtime. Medical Branch levETIRAcet 2020-0 Yes [id number] 500mg Take 1 [facility] am 500 mg 1-14 tablet by ity o f tablet 00:00: mouth 2 [place] (two) Medical times Branch daily. atorvastati 2020-0 Yes [id number] 80mg Take 1 [facility] n 80 mg 1-14 tablet by ity of tablet 00:00: mouth at [place] 00 bedtime. Medical Branch blood sugar 2020-0 Yes [id number] Use BID, [facility] diagnostic 1-14 DX E11.9 ity o f (BLOOD 00:00: ([facility] [place] GLUCOSE 00 upon Medical TEST) strip insurance [employer] [facility]) gabapentin 2020-0 Yes [id number] 400mg Take 1 [facility] 400 mg 1-14 capsule by it[facility] of capsule 00:00: mouth 3 00 (three) Medical times Branch daily. QUEtiapine 2020-0 Yes [id number] 100mg Take 1 [facility] 100 mg 1-14 tablet by ity of tablet 00:00: mouth at [place] 00 bedtime. Medical Branch SERTraline 2020-0 Yes [id number] 100mg Take 1 [facility] 100 mg 1-14 tablet by ity of tablet 00:00: mouth [place] 00 every Medical morning. Branch tamsulosin 2020-0 Yes [id number] .4mg Take 1 [facility] 0.4 mg 24 1-14 capsule by it[facility] of hr capsule 00:00: mouth [place] 00 daily. [facility] Branch traZODone 2020-0 Yes [id number] 50mg Take 1 [facility] 50 mg 1-14 tablet by [facility] of tablet 00:00: mouth at [place] 00 bedtime. Medical Branch levETIRAcet 2020-0 Yes [id number] 500mg Take 1 [facility] am 500 mg 1-14 tablet by ity o f tablet 00:00: mouth 2 00 (two) Medical times Branch daily. atorvastati 2020-0 Yes [id number] 80mg Take 1 [facility] n 80 mg 1-14 tablet by it[facility] of tablet 00:00: mouth at [place] 00 bedtime. Medical Branch blood sugar 2020-0 Yes [id number] Use BID, [facility] diagnostic 1-14 DX E11.9 ity o f (BLOOD 00:00: ([facility] [place] GLUCOSE 00 upon Medical TEST) strip insurance [employer] [facility]) gabapentin 2020-0 Yes [id number] 400mg Take 1 [facility] 400 mg 1-14 capsule by ity of capsule 00:00: mouth 3 00 (three) Medical times Branch daily. QUEtiapine 2020-0 Yes [id number] 100mg Take 1 [facility] 100 mg 1-14 tablet by it[facility] of tablet 00:00: mouth at [place] 00 bedtime. Medical Branch SERTraline 2020-0 Yes [id number] 100mg Take 1 [facility] 100 mg 1-14 tablet by ity of tablet 00:00: mouth [place] 00 every Medical morning. Branch tamsulosin 2020-0 Yes [id number] .4mg Take 1 [facility] 0.4 mg 24 1-14 capsule by ity of hr capsule 00:00: mouth [place] 00 daily. [facility] traZODone 2020-0 Yes [id number] 50mg Take 1 [facility] 50 mg 1-14 tablet by it[facility] of tablet 00:00: mouth at [place] 00 bedtime. Medical Branch levETIRAcet 2020-0 Yes [id number] 500mg Take 1 [facility] am 500 mg 1-14 tablet by ity o f tablet 00:00: mouth 2 00 (two) Medical times Branch daily. atorvastati 2020-0 Yes [id number] 80mg Take 1 [facility] n 80 mg 1-14 tablet by ity of tablet 00:00: mouth at [place] 00 bedtime. Medical Branch blood sugar 2020-0 Yes [id number] Use BID, [facility] diagnostic 1-14 DX E11.9 ity o f (BLOOD 00:00: (Brand [place] GLUCOSE 00 upon Medical TEST) strip insurance [employer] [facility]) gabapentin 2020-0 Yes [id number] 400mg Take 1 [facility] 400 mg 1-14 capsule by ity of capsule 00:00: mouth 3 (three) Medical times Branch daily. QUEtiapine 2020-0 Yes [id number] 100mg Take 1 [facility] 100 mg 1-14 tablet by it[facility] of tablet 00:00: mouth at [place] 00 bedtime. Medical Branch SERTraline 2020-0 Yes [id number] 100mg Take 1 [facility] 100 mg 1-14 tablet by ity of tablet 00:00: mouth [place] 00 every Medical morning. Branch tamsulosin 2020-0 Yes [id number] .4mg Take 1 [facility] 0.4 mg 24 1-14 capsule by it[facility] of hr capsule 00:00: mouth 00 daily. [facility] Branch traZODone 2020-0 Yes [id number] 50mg Take 1 [facility] 50 mg 1-14 tablet by [facility] of tablet 00:00: mouth at [place] 00 bedtime. Medical Branch levETIRAcet 2020-0 Yes [id number] 500mg Take 1 [facility] am 500 mg 1-14 tablet by it[facility] o f tablet 00:00: mouth 2 (two) Medical times Branch daily. atorvastati 2020-0 Yes [id number] 80mg Take 1 [facility] n 80 mg 1-14 tablet by ity of tablet 00:00: mouth at [place] 00 bedtime. Medical Branch blood sugar 2020-0 Yes [id number] Use BID, [facility] diagnostic 1-14 DX E11.9 ity o f (BLOOD 00:00: ([facility] GLUCOSE 00 upon Medical TEST) strip insurance [employer] [facility]) gabapentin 2020-0 Yes [id number] 400mg Take 1 [facility] 400 mg 1-14 capsule by ity of capsule 00:00: mouth 3 (three) Medical times Branch daily. QUEtiapine 2020-0 Yes [id number] 100mg Take 1 [facility] 100 mg 1-14 tablet by ity of tablet 00:00: mouth at [place] 00 bedtime. Medical Branch SERTraline 2020-0 Yes [id number] 100mg Take 1 [facility] 100 mg 1-14 tablet by ity of tablet 00:00: mouth [place] 00 every Medical morning. Branch tamsulosin 2020-0 Yes [id number] .4mg Take 1 [facility] 0.4 mg 24 1-14 capsule by it[facility] of hr capsule 00:00: mouth [place] 00 daily. Medical Branch traZODone 2020-0 Yes [id number] 50mg Take 1 [facility] 50 mg 1-14 tablet by [facility] of tablet 00:00: mouth at [place] 00 bedtime. Medical Branch levETIRAcet 2020-0 Yes [id number] 500mg Take 1 [facility] am 500 mg 1-14 tablet by ity o f tablet 00:00: mouth 2 [place] (two) Medical times Branch daily. atorvastati 2020-0 Yes [id number] 80mg Take 1 [facility] n 80 mg 1-14 tablet by ity of tablet 00:00: mouth at [place] 00 bedtime. Medical Branch blood sugar 2020-0 Yes [id number] Use BID, [facility] diagnostic 1-14 DX E11.9 ity o f (BLOOD 00:00: ([facility] [place] GLUCOSE 00 upon Medical TEST) strip insurance [facility] [employer] [facility]) gabapentin 2020-0 Yes [id number] 400mg Take 1 [facility] 400 mg 1-14 capsule by ity of capsule 00:00: mouth 3 [place] (three) Medical times Branch daily. QUEtiapine 2020-0 Yes [id number] 100mg Take 1 [facility] 100 mg 1-14 tablet by ity of tablet 00:00: mouth at [place] 00 bedtime. Medical Branch SERTraline 2020-0 Yes [id number] 100mg Take 1 [facility] 100 mg 1-14 tablet by ity of tablet 00:00: mouth [place] 00 every Medical morning. Branch tamsulosin 2020-0 Yes [id number] .4mg Take 1 [facility] 0.4 mg 24 1-14 capsule by ity of hr capsule 00:00: mouth [place] 00 daily. Medical Branch traZODone 2020-0 Yes [id number] 50mg Take 1 [facility] 50 mg 1-14 tablet by [facility] of tablet 00:00: mouth at [place] 00 bedtime. Medical Branch levETIRAcet 2020-0 Yes [id number] 500mg Take 1 [facility] am 500 mg 1-14 tablet by ity o f tablet 00:00: mouth 2 [place] (two) Medical times Branch daily. atorvastati 2020-0 Yes [id number] 80mg Take 1 [facility] n 80 mg 1-14 tablet by it[facility] of tablet 00:00: mouth at [place] 00 bedtime. Medical Branch blood sugar 2020-0 Yes [id number] Use BID, [facility] diagnostic 1-14 DX E11.9 ity o f (BLOOD 00:00: ([facility] [place] GLUCOSE 00 upon Medical TEST) strip insurance [facility]) gabapentin 2020-0 Yes [id number] 400mg Take 1 [facility] 400 mg 1-14 capsule by it[facility] of capsule 00:00: mouth 3 00 (three) Medical times Branch daily. QUEtiapine 2020-0 Yes [id number] 100mg Take 1 [facility] 100 mg 1-14 tablet by ity of tablet 00:00: mouth at [place] 00 bedtime. Medical Branch SERTraline 2020-0 Yes [id number] 100mg Take 1 [facility] 100 mg 1-14 tablet by ity of tablet 00:00: mouth [place] 00 every Medical morning. Branch tamsulosin 2020-0 Yes [id number] .4mg Take 1 [facility] 0.4 mg 24 1-14 capsule by ity of hr capsule 00:00: mouth [place] 00 daily. Medical Branch traZODone 2020-0 Yes [id number] 50mg Take 1 [facility] 50 mg 1-14 tablet by it[facility] of tablet 00:00: mouth at [place] 00 bedtime. Medical Branch levETIRAcet 2020-0 Yes [id number] 500mg Take 1 [facility] am 500 mg 1-14 tablet by ity o f tablet 00:00: mouth 2 (two) Medical times Branch daily. atorvastati 2020-0 Yes [id number] 80mg Take 1 [facility] n 80 mg 1-14 tablet by ity of tablet 00:00: mouth at [place] 00 bedtime. Medical Branch blood sugar 2020-0 Yes [id number] Use BID, [facility] diagnostic 1-14 DX E11.9 ity o f (BLOOD 00:00: ([facility] GLUCOSE 00 upon Medical TEST) strip insurance [employer] [facility] [employer]) gabapentin 2020-0 Yes [id number] 400mg Take 1 [facility] 400 mg 1-14 capsule by ity of capsule 00:00: mouth 3 (three) Medical times Branch daily. QUEtiapine 2020-0 Yes [id number] 100mg Take 1 [facility] 100 mg 1-14 tablet by ity of tablet 00:00: mouth at [place] 00 bedtime. Medical Branch SERTraline 2020-0 Yes [id number] 100mg Take 1 [facility] 100 mg 1-14 tablet by ity of tablet 00:00: mouth [place] 00 every Medical morning. Branch tamsulosin 2020-0 Yes [id number] .4mg Take 1 [facility] 0.4 mg 24 1-14 capsule by ity of hr capsule 00:00: mouth 00 daily. Medical Branch traZODone 2020-0 Yes [id number] 50mg Take 1 [facility] 50 mg 1-14 tablet by it[facility] of tablet 00:00: mouth at [place] 00 bedtime. Medical Branch levETIRAcet 2020-0 Yes [id number] 500mg Take 1 [facility] am 500 mg 1-14 tablet by ity o f tablet 00:00: mouth 2 [place] (two) Medical times Branch daily. atorvastati 2020-0 Yes [id number] 80mg Take 1 [facility] n 80 mg 1-14 tablet by ity of tablet 00:00: mouth at [place] [address] bedtime. Medical Branch blood sugar 2020-0 Yes [id number] Use BID, [facility] diagnostic 1-14 DX E11.9 ity o f (BLOOD 00:00: ([facility] [place] GLUCOSE 00 upon Medical TEST) strip insurance [employer] [facility] [employer]) gabapentin 2020-0 Yes [id number] 400mg Take 1 [facility] 400 mg 1-14 capsule by ity of capsule 00:00: mouth 3 [place] (three) Medical times Branch daily. QUEtiapine 2020-0 Yes [id number] 100mg Take 1 [facility] 100 mg 1-14 tablet by ity of tablet 00:00: mouth at [place] 00 bedtime. Medical Branch SERTraline 2020-0 Yes [id number] 100mg Take 1 [facility] 100 mg 1-14 tablet by ity of tablet 00:00: mouth [place] 00 every Medical morning. Branch tamsulosin 2020-0 Yes [id number] .4mg Take 1 [facility] 0.4 mg 24 1-14 capsule by ity of hr capsule 00:00: mouth 00 daily. Medical Branch traZODone 2020-0 Yes [id number] 50mg Take 1 [facility] 50 mg 1-14 tablet by ity of tablet 00:00: mouth at [place] 00 bedtime. Medical Branch levETIRAcet 2020-0 Yes [id number] 500mg Take 1 [facility] am 500 mg 1-14 tablet by ity o f tablet 00:00: mouth 2 [place] (two) Medical times Branch daily. atorvastati 2020-0 Yes [id number] 80mg Take 1 [facility] n 80 mg 1-14 tablet by ity of tablet 00:00: mouth at [place] [address] bedtime. Medical Branch blood sugar 2020-0 Yes [id number] Use BID, [facility] diagnostic 1-14 DX E11.9 ity o f (BLOOD 00:00: ([facility] [place] GLUCOSE 00 upon Medical TEST) strip insurance [employer] [facility] [employer]) gabapentin 2020-0 Yes [id number] 400mg Take 1 [facility] 400 mg 1-14 capsule by ity of capsule 00:00: mouth 3 (three) Medical times Branch daily. QUEtiapine 2020-0 Yes [id number] 100mg Take 1 [facility] 100 mg 1-14 tablet by ity of tablet 00:00: mouth at [place] 00 bedtime. Medical Branch SERTraline 2020-0 Yes [id number] 100mg Take 1 [facility] 100 mg 1-14 tablet by ity of tablet 00:00: mouth 00 every Medical morning. Branch tamsulosin 2020-0 Yes [id number] .4mg Take 1 [facility] 0.4 mg 24 1-14 capsule by ity of hr capsule 00:00: mouth 00 daily. Medical Branch traZODone 2020-0 Yes [id number] 50mg Take 1 [facility] 50 mg 1-14 tablet by ity of tablet 00:00: mouth at [place] 00 bedtime. Medical Branch levETIRAcet 2020-0 Yes [id number] 500mg Take 1 [facility] am 500 mg 1-14 tablet by ity o f tablet 00:00: mouth 2 (two) Medical times Branch daily. atorvastati 2020-0 Yes [id number] 80mg Take 1 [facility] n 80 mg 1-14 tablet by ity of tablet 00:00: mouth at [place] 00 bedtime. Medical Branch blood sugar 2020-0 Yes [id number] Use BID, [facility] diagnostic 1-14 DX E11.9 ity o f (BLOOD 00:00: (Brand [place] GLUCOSE 00 upon Medical TEST) strip insurance [employer] [facility] [employer]) gabapentin 2020-0 Yes [id number] 400mg Take 1 [facility] 400 mg 1-14 capsule by ity of capsule 00:00: mouth 3 (three) Medical times Branch daily. QUEtiapine 2020-0 Yes [id number] 100mg Take 1 [facility] 100 mg 1-14 tablet by ity of tablet 00:00: mouth at [place] 00 bedtime. Medical Branch SERTraline 2020-0 Yes [id number] 100mg Take 1 [facility] 100 mg 1-14 tablet by ity of tablet 00:00: mouth [place] 00 every Medical morning. Branch tamsulosin 2020-0 Yes [id number] .4mg Take 1 [facility] 0.4 mg 24 1-14 capsule by ity of hr capsule 00:00: mouth [place] 00 daily. Medical Branch traZODone 2020-0 Yes [id number] 50mg Take 1 [facility] [place] 50 mg 1-14 tablet by ity of tablet 00:00: mouth at [place] 00 bedtime. Medical Branch levETIRAcet 2020-0 Yes [id number] 500mg Take 1 [facility] am 500 mg 1-14 tablet by ity o f tablet 00:00: mouth 2 (two) Medical times Branch daily. atorvastati 2020-0 Yes [id number] 80mg Take 1 [facility] n 80 mg 1-14 tablet by ity of tablet 00:00: mouth at [place] 00 bedtime. Medical Branch blood sugar 2020-0 Yes [id number] Use BID, [facility] diagnostic 1-14 DX E11.9 ity o f (BLOOD 00:00: (Brand [place] GLUCOSE 00 upon Medical TEST) strip insurance [facility] approval) gabapentin 2020-0 Yes [id number] 400mg Take 1 [facility] 400 mg 1-14 capsule by ity of capsule 00:00: mouth 3 (three) Medical times Branch daily. QUEtiapine 2020-0 Yes [id number] 100mg Take 1 [facility] 100 mg 1-14 tablet by ity of tablet 00:00: mouth at [place] 00 bedtime. Medical Branch SERTraline 2020-0 Yes [id number] 100mg Take 1 [facility] 100 mg 1-14 tablet by ity of tablet 00:00: mouth [place] 00 every Medical morning. Branch tamsulosin 2020-0 Yes [id number] .4mg Take 1 [facility] 0.4 mg 24 1-14 capsule by ity of hr capsule 00:00: mouth [place] 00 daily. Medical Branch traZODone 2020-0 Yes [id number] 50mg Take 1 [facility] [place] 50 mg 1-14 tablet by ity of tablet 00:00: mouth at [place] 00 bedtime. Medical Branch levETIRAcet 2020-0 Yes [id number] 500mg Take 1 [facility] am 500 mg 1-14 tablet by ity o f tablet 00:00: mouth 2 [place] (two) Medical times Branch daily. atorvastati 2020-0 Yes [id number] 80mg Take 1 [facility] n 80 mg 1-14 tablet by ity of tablet 00:00: mouth at [place] 00 bedtime. Medical Branch blood sugar 2020-0 Yes [id number] Use BID, [facility] diagnostic 1-14 DX E11.9 ity o f (BLOOD 00:00: (Brand [place] GLUCOSE 00 upon Medical TEST) strip insurance [facility] approval) gabapentin 2020-0 Yes [id number] 400mg Take 1 [facility] 400 mg 1-14 capsule by ity of capsule 00:00: mouth 3 (three) Medical times Branch daily. QUEtiapine 2020-0 Yes [id number] 100mg Take 1 [facility] 100 mg 1-14 tablet by ity of tablet 00:00: mouth at [place] 00 bedtime. Medical Branch SERTraline 2020-0 Yes [id number] 100mg Take 1 [facility] 100 mg 1-14 tablet by ity of tablet 00:00: mouth [place] 00 every Medical morning. Branch tamsulosin 2020-0 Yes [id number] .4mg Take 1 [facility] 0.4 mg 24 1-14 capsule by ity of hr capsule 00:00: mouth daily. Medical Branch traZODone 2020-0 Yes [id number] 50mg Take 1 [facility] [place] 50 mg 1-14 tablet by [facility]y of tablet 00:00: mouth at [place] 00 bedtime. Medical Branch levETIRAcet 2020-0 Yes [id number] 500mg Take 1 [facility] am 500 mg 1-14 tablet by ity o f tablet 00:00: mouth 2 (two) Medical times Branch daily. atorvastati 2020-0 Yes [id number] 80mg Take 1 [facility] n 80 mg 1-14 tablet by ity of tablet 00:00: mouth at [place] 00 bedtime. Medical Branch blood sugar 2020-0 Yes [id number] Use BID, [facility] diagnostic 1-14 DX E11.9 ity o f (BLOOD 00:00: (Brand [place] GLUCOSE 00 upon Medical TEST) strip insurance [facility] approval) gabapentin 2020-0 Yes [id number] 400mg Take 1 [facility] 400 mg 1-14 capsule by ity of capsule 00:00: mouth 3 (three) Medical times Branch daily. QUEtiapine 2020-0 Yes [id number] 100mg Take 1 [facility] 100 mg 1-14 tablet by ity of tablet 00:00: mouth at [place] 00 bedtime. Medical Branch SERTraline 2020-0 Yes [id number] 100mg Take 1 [facility] 100 mg 1-14 tablet by ity of tablet 00:00: mouth [place] 00 every Medical morning. Branch tamsulosin 2020-0 Yes [id number] .4mg Take 1 [facility] 0.4 mg 24 1-14 capsule by ity of hr capsule 00:00: mouth [place] 00 daily. Medical Branch traZODone 2020-0 Yes [id number] 50mg Take 1 [facility] [place] 50 mg 1-14 tablet by ity of tablet 00:00: mouth at [place] 00 bedtime. Medical Branch levETIRAcet 2020-0 Yes [id number] 500mg Take 1 [facility] am 500 mg 1-14 tablet by ity o f tablet 00:00: mouth 2 [place] (two) Medical times Branch daily. atorvastati 2020-0 Yes [id number] 80mg Take 1 [facility] n 80 mg 1-14 tablet by ity of tablet 00:00: mouth at [place] 00 bedtime. Medical Branch blood sugar 2020-0 Yes [id number] Use BID, [facility] diagnostic 1-14 DX E11.9 ity o f (BLOOD 00:00: (Brand [place] GLUCOSE 00 upon Medical TEST) strip insurance [facility]) gabapentin 2020-0 Yes [id number] 400mg Take 1 [facility] 400 mg 1-14 capsule by ity of capsule 00:00: mouth 3 (three) Medical times Branch daily. QUEtiapine 2020-0 Yes [id number] 100mg Take 1 [facility] 100 mg 1-14 tablet by ity of tablet 00:00: mouth at [place] 00 bedtime. Medical Branch SERTraline 2020-0 Yes [id number] 100mg Take 1 [facility] 100 mg 1-14 tablet by ity of tablet 00:00: mouth [place] 00 every Medical morning. Branch tamsulosin 2020-0 Yes [id number] .4mg Take 1 [facility] 0.4 mg 24 1-14 capsule by ity of hr capsule 00:00: mouth [place] 00 daily. Medical Branch traZODone 2020-0 Yes [id number] 50mg Take 1 [facility] [place] 50 mg 1-14 tablet by ity of tablet 00:00: mouth at [place] 00 bedtime. Medical Branch levETIRAcet 2020-0 Yes [id number] 500mg Take 1 [facility] am 500 mg 1-14 tablet by ity o f tablet 00:00: mouth 2 [place] (two) Medical times Branch daily. atorvastati 2020-0 Yes [id number] 80mg Take 1 [facility] n 80 mg 1-14 tablet by ity of tablet 00:00: mouth at [place] 00 bedtime. Medical Branch blood sugar 2020-0 Yes [id number] Use BID, [facility] diagnostic 1-14 DX E11.9 ity o f (BLOOD 00:00: (Brand [place] GLUCOSE 00 upon Medical TEST) strip insurance [facility] approval) gabapentin 2020-0 Yes [id number] 400mg Take 1 [facility] 400 mg 1-14 capsule by ity of capsule 00:00: mouth 3 00 (three) Medical times Branch daily. QUEtiapine 2020-0 Yes [id number] 100mg Take 1 [facility] 100 mg 1-14 tablet by ity of tablet 00:00: mouth at [place] 00 bedtime. Medical Branch SERTraline 2020-0 Yes [id number] 100mg Take 1 [facility] 100 mg 1-14 tablet by ity of tablet 00:00: mouth [place] 00 every Medical morning. Branch tamsulosin 2020-0 Yes [id number] .4mg Take 1 [facility] 0.4 mg 24 1-14 capsule by ity of hr capsule 00:00: mouth [place] 00 daily. Medical Branch traZODone 2020-0 Yes [id number] 50mg Take 1 [facility] [place] 50 mg 1-14 tablet by ity of tablet 00:00: mouth at [place] 00 bedtime. Medical Branch levETIRAcet 2020-0 Yes [id number] 500mg Take 1 [facility] am 500 mg 1-14 tablet by ity o f tablet 00:00: mouth 2 00 (two) Medical times Branch daily. atorvastati 2020-0 Yes [id number] 80mg Take 1 [facility] n 80 mg 1-14 tablet by ity of tablet 00:00: mouth at [place] 00 bedtime. Medical Branch blood sugar 2020-0 Yes [id number] Use BID, [facility] diagnostic 1-14 DX E11.9 ity o f (BLOOD 00:00: (Brand [place] GLUCOSE 00 upon Medical TEST) strip insurance [facility] approval) gabapentin 2020-0 Yes [id number] 400mg Take 1 [facility] 400 mg 1-14 capsule by ity of capsule 00:00: mouth 3 (three) Medical times Branch daily. QUEtiapine 2020-0 Yes [id number] 100mg Take 1 [facility] 100 mg 1-14 tablet by ity of tablet 00:00: mouth at [place] [address] bedtime. Medical Branch SERTraline 2020-0 Yes [id number] 100mg Take 1 [facility] 100 mg 1-14 tablet by ity of tablet 00:00: mouth [place] 00 every Medical morning. Branch tamsulosin 2020-0 Yes [id number] .4mg Take 1 [facility] 0.4 mg 24 1-14 capsule by ity of hr capsule 00:00: mouth [place] 00 daily. Medical Branch traZODone 2020-0 Yes [id number] 50mg Take 1 [facility] [place] 50 mg 1-14 tablet by ity of tablet 00:00: mouth at [place] [address] bedtime. Medical Branch levETIRAcet 2020-0 Yes [id number] 500mg Take 1 [facility] am 500 mg 1-14 tablet by ity o f tablet 00:00: mouth 2 (two) Medical times Branch daily. atorvastati 2020-0 Yes [id number] 80mg Take 1 [facility] n 80 mg 1-14 tablet by ity of tablet 00:00: mouth at [place] [address] bedtime. Medical Branch blood sugar 2020-0 Yes [id number] Use BID, [facility] diagnostic 1-14 DX E11.9 ity o f (BLOOD 00:00: (Brand [place] GLUCOSE 00 upon Medical TEST) strip insurance [facility] approval) gabapentin 2020-0 Yes [id number] 400mg Take 1 [facility] 400 mg 1-14 capsule by ity of capsule 00:00: mouth 3 (three) Medical times Branch daily. QUEtiapine 2020-0 Yes [id number] 100mg Take 1 [facility] 100 mg 1-14 tablet by ity of tablet 00:00: mouth at [place] [address] bedtime. Medical Branch SERTraline 2020-0 Yes [id number] 100mg Take 1 [facility] 100 mg 1-14 tablet by ity of tablet 00:00: mouth [place] 00 every Medical morning. Branch tamsulosin 2020-0 Yes [id number] .4mg Take 1 [facility] 0.4 mg 24 1-14 capsule by ity of hr capsule 00:00: mouth [place] 00 daily. Medical Branch traZODone 2020-0 Yes [id number] 50mg Take 1 [facility] [place] 50 mg 1-14 tablet by ity of tablet 00:00: mouth at [place] [address] bedtime. Medical Branch levETIRAcet 2020-0 Yes [id number] 500mg Take 1 [facility] am 500 mg 1-14 tablet by ity o f tablet 00:00: mouth 2 [place] 00 (two) Medical times Branch daily. atorvastati Yes [id number] 80mg Take 1 [facility] n 80 mg 1-14 tablet by ity of tablet 00:00: mouth at [place] 00 bedtime. Medical Branch blood sugar Yes [id number] Use BID, [facility] diagnostic 1-14 DX E11.9 ity o f (BLOOD 00:00: (Brand [place] GLUCOSE 00 upon Medical TEST) strip insurance [facility] approval) gabapentin Yes [id number] 400mg Take 1 [facility] 400 mg 1-14 capsule by ity of capsule 00:00: mouth 3 [place] 00 (three) Medical times Branch daily. QUEtiapine Yes [id number] 100mg Take 1 [facility] 100 mg 1-14 tablet by ity of tablet 00:00: mouth at [place] 00 bedtime. Medical Branch SERTraline Yes [id number] 100mg Take 1 [facility] 100 mg 1-14 tablet by ity of tablet 00:00: mouth [place] 00 every Medical morning. Branch tamsulosin Yes [id number] .4mg Take 1 [facility] 0.4 mg 24 1-14 capsule by ity of hr capsule 00:00: mouth [place] 00 daily. Medical Branch traZODone Yes [id number] 50mg Take 1 [facility] [place] 50 mg 1-14 tablet by ity of tablet 00:00: mouth at [place] 00 bedtime. Medical Branch Pioglitazon 2020- No [id number] 1{tbl} Take 1 [facility] e-Metformin 1-14 03-05 tablet by it y of 15-1,000 mg 00:00: 00:00 mouth 2 [place] TM24 00 :00 (two) Medical times Branch daily with meals. Pioglitazon 2020- No [id number] 1{tbl} Take 1 [facility] e-Metformin 1-14 03-05 tablet by it y of 15-1,000 mg 00:00: 00:00 mouth 2 [place] TM24 00 :00 (two) Medical times Branch daily with meals. gabapentin 2018-03 Yes 100 mg = 1 M emoria 100 MG Oral 2-05 cap, PO, l Capsule 05:00: BID, # 180 [place] 00 cap, 0 Refill(s), Pharmacy: [facility] #[id number] Levetiracet 2018-03 Yes 500 mg = 1 Memoria am 500 MG 2-05 tab, PO, l Oral Tablet 05:00: Q12H, # Her adams 00 180 tab, 0 Refill(s), Pharmacy: [facility] #[id number] sertraline 2018-03 Yes 100 mg = 2 M emoria 50 mg oral 2-05 tab, PO, l tablet 05:00: Daily, # Demar 00 180 tab, 0 Refill(s), Pharmacy: [facility] #[id number] tamsulosin 2018-03 Yes 0.4 mg = 1 M emoria 0.4 mg oral 2-05 cap, PO, l capsule 05:00: Daily, # Mauricio n 00 90 cap, 0 Refill(s), Pharmacy: [facility] #[id number] Aspirin 81 2018-03 Yes 81 mg = 1 Me moria MG Enteric 2-05 tab, PO, l Coated 05:00: Daily, # Demar Tablet 00 90 tab, 0 Refill(s), Pharmacy: [facility] #[id number] atorvastati 2018-03 Yes 80 mg = 1 M emoria n 80 mg 2-05 tab, PO, l oral tablet 05:00: Bedtime, # Demar 00 90 tab, 0 Refill(s), Pharmacy: [facility] #[id number] baclofen 20 2018-03 Yes 20 mg = 1 M emoria mg oral 2-05 tab, PO, l tablet 05:00: Q6H, # 360 [place] nn 00 tab, 0 Refill(s), Pharmacy: [facility] #[id number] Docusate 2018-03 Yes 100 mg = 1 Mem oria Sodium 100 2-05 cap, PO, l MG Oral 05:00: BID, # 180 Herm shel[place] Capsule 00 cap, 0 Refill(s), Pharmacy: [facility] #[id number] lisinopril 2018-03 Yes 5 mg = 1 Mem oria 5 mg oral 2-05 tab, PO, l tablet 05:00: Bedtime, # [place]iqu[place] nn 00 90 tab, 0 Refill(s), Pharmacy: [facility] #[id number] melatonin 3 2018-03 Yes 6 mg = 2 Me moria mg oral 2-05 tab, PO, l tablet 05:00: Bedtime, X Chiquita nn 90 day, # 180 tab, 0 Refill(s), Pharmacy: [facility] #[id number] Metformin 2018-03 Yes 500 mg = 1 Me moria hydrochlori 2-05 tab, PO, l de 500 MG 05:00: BID-Meals, [place] Oral Tablet 00 # 180 tab, 0 Refill(s), Pharmacy: [facility] #[id number] sennosides, 2018-03 Yes 8.6 mg = 1 Memoria HALF-WAY 8.6 MG 2-05 tab, PO, l Oral Tablet 05:00: QNoon, X He r[place] 90 day, # 90 tab, 0 Refill(s), Pharmacy: [facility] #[id number] Trazodone 2018-03 Yes 50 mg = 1 Mem oria Hydrochlori 2-05 tab, PO, l de 50 MG 05:00: Bedtime, # Her adams Oral Tablet 00 90 tab, 0 Refill(s), Pharmacy: [facility] #[id number] phenol 6% 2018-03 No Notes: Memori a AQ in water 04-21 WASTE: F/P l for 02:00: - Black; E Demar injection [facility] Melatonin 2018-03 No Notes: Memori a 04-14 (Same as: l 03:00: Melatonin) sennosides, 2018-03 No Notes: [place] HALF-WAY 8.6 MG 04-13 (Same as: l Oral Tablet 18:00: Senokot) [facility] Tylenol 2018-03 No Notes: Do Memor ia 04-12 not exceed l 19:42: 4 gm/day. Demar (Same as: Tylenol) Aspirin 81 2018-03 No Notes: Do Me moria MG Enteric 04-11 not crush l Coated 14:30: or chew. Demar Tablet (Same As: Ecotrin) atorvastati 2018-03 No Notes: [place] n 24 (Same as: l 03:00: Lipitor) Lisinopril 2018-03 No Notes: Memor ia -24 (Same as: l 03:00: Prinivil, Zestril) Metformin 2018-03 No Notes: Memori a 1-23 (Same as: l 23:00: Glucophage [place] ) Take with meal vancomycin 2018-03 No 2001 mg: Me moria + Sodium 1-23 infuse l Chloride 22:00: over 2.5 [place] nn 0.9% IV 250 00 hours For mL adult patients only: Round to nearest 250 mg per Medical Staff approval gabapentin 2018-03 No Notes: Memor ia 100 MG Oral - (Same as: l Capsule 14:30: Neurontin) Herm [place] Sertraline 2018-03 No Notes: Memor ia -23 (Same as: l 14:30: Zoloft) [place] tamsulosin 2018-03 No Notes: Memor ia -23 (Same As: l 14:30: Flomax) Demar "Do Not Crush" Docusate 2018-03 No Notes: Memoria Sodium 100 -23 (Same as: l MG Oral 14:30: Colace) Demar Capsule 00 (Do Not Crush) sennosides, 2018-03 No Notes: [place] HALF-WAY 8.6 MG 04-10 (Same as: l Oral Tablet 14:30: Senokot) [place] Vancomycin 2018-03 No 2001 mg: Me moria 1-23 infuse l 06:00: over 2.5 [place] 00 hours For adult patients only: Round to nearest 250 mg per Medical Staff approval Baclofen 2018-03 No Notes: Memoria -23 (Same As: l 06:00: Lioresal) [place] heparin 2018-03 No Notes: Memoria -23 porcine l 06:00: heparin Demar cefepime 2018-03 No Notes: Memoria -23 (Same as: l 05:00: Maxipime) [place] 00 MEDICATION WASTE Product Size: 2000 mg Product Wasted: __0_ mg Levetiracet 2018-03 No Notes: [place] am 500 MG -23 (Same l Oral Tablet 05:00: as:Keppra) [place] Trazodone 2018-03 No Notes: Memori a Hydrochlori -23 (Same As: l de 50 MG 05:00: Desyrel) [place] nn Oral Tablet 00 Metronidazo 2018-03 No Notes: [place] le 1-23 (Same as: l 04:00: Flagyl) Avoid alcohol. Albuterol 2018-03 No Notes: Memori a 0.833 MG/ML 04-10 (Same as: l / 03:35: Duoneb) Ipratropium 00 [place] 0.167 MG/ML Inhalant Solution Milk of 2018-03 No Notes: Memoria Magnesia 04-10 (Same as: l 03:33: Milk of [place]es[place], MOM) Bisacodyl 2018-03 No Notes: Memori a 04-10 (Same As: l 03:33: Dulcolax, Bisco-Lax) Saline 2018-03 No Notes: Memoria Flush 0.9% 04-10 (Same as: l 03:33: BD Posiflush) Midazolam 2018-03 No Notes: Memori a 04-10 (Same l 03:33: as:Versed) Levetiracet 2018-03 No Notes: [place] am 04-10 Same as l 03:33: [...] 04-09 250 mL, l mL-NaCl 23:32: IVPB, Demar 0.9% 00 ABXQ8H, 0 intravenous Refill(s) solution cefepime 2 2018-03 Yes 2 gm, IV, Me moria g injection 04-09 Q8H, X 10 l 23:32: day, # 30 [place] 00 ea, 0 Refill(s), other Trazodone 2018-03 No Notes: Memori a 04-08 (Same As: l 03:00: Desyrel) Albuterol 2018-03 No Notes: SEE Me moria 0.83 MG/ML 04-08 RT l Inhalant 01:00: DOCUMENTAT Her adams Solution 00 ION (Same as: Proventil) Ipratropium 2018-03 No Notes: SEE Memoria 1-21 RT l 01:00: DOCUMENTAT ION (Same as:Atroven t) [place] 2018-03 No 1 supp, Memoria Glycerin -20 Route: IA, l Suppositori 23:49: Dosing Herm shel[place] es Adult 00 Weight 125.5, kg, Daily, STAT, Start date: 02/05/19 17:49:00 CLINIC OFFICE ASSISTANT, Duration: 30 day, Stop date: 03/07/19 9:00:00 CLINIC OFFICE ASSISTANT Ativan 2018-03 No Notes: Memoria 1-20 (Same as: l 15:19: Ativan) Baclofen 2018-03 No Notes: Memoria -20 (Same As: l 15:16: Lioresal) gabapentin 2018-03 No Notes: Memor ia 100 MG Oral -20 (Same as: l Capsule 15:00: Neurontin) Reglan 2018-03 No Notes: Memoria -20 (Same as: l 08:22: Reglan) Phenergan 2018-03 No Notes: Do Mem oria -20 not give l 08:20: IV push. (Same as: Phenergan) Phenergan 2018-03 No 12.5 mg, [place] 04-07 Route: PO, l 08:15: Drug form: [place] 00 TAB, Q4H, Dosing Weight 125.5, kg, PRN Nausea & Vomiting, Start date: 02/05/19 2:15:00 CLINIC OFFICE ASSISTANT, Duration: 30 day, Stop date: 03/07/19 2:14:00 CLINIC OFFICE ASSISTANT Tylenol 2018-03 No Notes: Memoria -20 Infuse l 08:15: over 15 minutes Do not exceed 4gm/day of acetaminop hen MEDICATION WASTE Product Size: 1000 mg Product Wasted: ___ mg Flagyl 2018-03 No Notes: Memoria 1-20 (Same as: l 03:00: Flagyl) Avoid alcohol. heparin 2018-03 No 7,500 Memoria 1-19 unit, 0.75 l 22:00: mL, Route: [place] 00 SUB-Q, Drug form: INJ, Q8H, Dosing Weight 125.5, kg, Consider for obese patients, Start date: 02/04/19 16:00:00 CLINIC OFFICE ASSISTANT, Duration: 30 day, Stop date: 03/06/19 13:00:00 CLINIC OFFICE ASSISTANT, 0 vancomycin 2018-03 No 2001 mg: Me moria - infuse l 19:00: over 2.5 Demar 00 hours Flagyl 2018-03 No Notes: Memoria - (Same as: l 17:56: Flagyl) Avoid alcohol. Docusate 2018-03 No Notes: Memoria - (Same as: l 15:00: Colace) (Do Not Crush) sennosides, 2018-03 No Notes: [place] HALF-WAY 04-06 (Same as: l 15:00: Senokot) Saline 2018-03 No Notes: Memoria Flush 0.9% 04-06 Same as: l 15:00: BD Posiflush Sterile atorvastati 2018-03 No Notes: [place] n 04-06 (Same as: l 15:00: Lipitor) Sertraline 2018-03 No Notes: Memor ia 04-06 (Same as: l 15:00: Zoloft) Levetiracet 2018-03 No Notes: [place] am 500 MG 04-06 (Same l Oral Tablet 15:00: as:Keppra) [Keppra] Baclofen 2018-03 No Notes: Memoria 04-06 (Same As: l 15:00: Lioresal) tamsulosin 2018-03 No Notes: Memor ia 04-06 (Same As: l 14:30: Flomax) "Do Not Crush" Valium 2018-03 No Notes: Memoria - (Same as: l 13:37: Valium) Valium 2018-03 No 5 mg, Memoria 04-06 Route: l 13:12: IVP, Drug form: INJ, BID, Dosing Weight 125.5, kg, PRN Seizure, Start date: 02/04/19 7:12:00 CLINIC OFFICE ASSISTANT, Duration: 30 day, Stop date: 03/06/19 7:11:00 CLINIC OFFICE ASSISTANT Omnipaque 2018-03 No Notes: Memori a 300 [...] moria IV 04-06 1,000 l 10:47: ml/hr, Deamr 00 Infuse Over: 1 hr, Route: IV, 1,000, Drug form: INJ, ONCE, Priority: STAT, Dosing Weight 125.5 kg, Start date: 02/04/19 4:47:00 CLINIC OFFICE ASSISTANT, Stop date: 02/04/19 4:47:00 CLINIC OFFICE ASSISTANT, 0 Dextrose 2018-03 No 12.5 gm, Memor ia 50% Syringe 04-06 25 mL, l 10:18: Route: [place] 00 IVP, Drug Form: INJ, Dosing Weight 125.5, kg, PRN, PRN Blood Glucose Results, Start date: 02/04/19 4:18:00 CLINIC OFFICE ASSISTANT, Duration: 30 day, Stop date: 03/06/19 4:17:00 CLINIC OFFICE ASSISTANT, 0 Glucagon 2018-03 No 1 mg, Memoria 04-06 Route: IM, l 10:18: Drug form: [place] 00 PDR/INJ, PRN, Dosing Weight 125.5, kg, PRN Blood Glucose Results, Start date: 02/04/19 4:18:00 CLINIC OFFICE ASSISTANT, Duration: 30 day, Stop date: 03/06/19 4:17:00 CLINIC OFFICE ASSISTANT, 0 Insulin 2018-03 No Notes: Memoria Lispro 04-06 (Same as: l 10:18: Humalog) Demar 00 Roll in palms of hands gently; Do not shake vigorously . WASTE: F/P - Black; E - Municipal Trash Bin Stable for 28 days at room temperatur e. Expires in days from ____Date Labetalol 2018-03 No Notes: Memori a 04-06 (Same as: l 10:05: Normodyne, Demar Trandate) Push over 2 minutes Give bolus over 2-3 minutes. cefepime 2018-03 No Notes: Memoria 04-06 (Same as: l 10:00: Maxipime) MEDICATION WASTE Product Size: 2000 mg Product Wasted: ___ mg Vancomycin 2018-03 No 1 ea, Memori a 04-06 Route: l 10:00: MISC, [place] 00 ONCALL, Dosing Weight 125.5, kg, Start date: 02/04/19 4:00:00 CLINIC OFFICE ASSISTANT, Duration: 7 day, Stop date: 02/11/19 3:59:00 CLINIC OFFICE ASSISTANT, Pharmacy to dose, ABX Indication : Fever of Unknown Source 0-60 days of age NS 1,000 mL 2018-03 No 1,000 mL, M emoria 04-06 Rate: 150 l 08:55: ml/hr, Infuse over: 6.7 hr, Route: IV, Dosing Weight 125.5 kg, Total Volume: 1,000, Start date: 02/04/19 2:55:00 CLINIC OFFICE ASSISTANT, Duration: 30 day, Stop date: 03/06/19 2:54:00 CLINIC OFFICE ASSISTANT, 2.51, m2, 0 Nystatin 2018-03 No Notes: Memoria 100 UNT/MG 04-06 (Same l Topical 08:54: as:Mycosta Herm shelton Powder 00 tin, Nilstat) For external use only. Acetaminoph 2018-03 No Notes: Do M emoria en 04-06 not exceed l 08:54: 4 gm/day. [place] 00 (Same as: Tylenol) Ondansetron 2018-03 No Notes: [place] 04-06 (Same as: l 08:54: Zofran) MEDICATION WASTE Product Size: 4 mg Product Wasted: ___ mg Saline 2018-03 No Notes: Memoria Flush 0.9% 04-06 Same as: l 08:54: BD Posiflush Sterile Potassium 2018-03 No Notes: Memori a Chloride 04-06 (Same as: l 08:54: KCL) Infuse no faster than 10 mEq/hr if given peripheral ly. sodium 2018-03 No Notes: Memoria phosphate 04-06 Infuse l 08:54: over 4 Demar 00 hour. Do not infuse phosphorou s concurrent ly in the same line as TPN or IVF that contains calcium. For double lumen central lines, phosphorou s may be infused in a separate lumen from TPN. potassium 2018-03 No Notes: Memori a phosphate - (Same as: l 08:54: K [place] 00 Phosphate. ) Do not infuse phosphorou s concurrent ly in the same line as TPN or IVF that contains calcium. For double lumen central lines, phosphorou s may be infused in a separate lumen from TPN. 1 mMol phoshate has 1.47 mEq potassium Infuse over 4 hours potassium 2018-03 No Notes: Memori a phosphate-s - (Same as: l odium 08:54: Phos-NaK) [place] phosphate 00 Each 1.5 250 mg-280 gm pkt has mg-160 mg 250mg oral powder phosphorou for s. Mix reconstitut w/2.5oz ion water and stir. Magnesium 2018-03 No Notes: Memori a Sulfate 04-06 WASTE: F/P l 08:54: - Sink; E [place] 00 - Municipal Trash Bin Magnesium 2018-03 No Notes: Memori a Oxide 04-06 (Same as: l 08:54: Mag-Ox Demar 00 400) Magnesium oxide 284ys=146e g elemental magnesium Dose=____m g magnesium oxide (___mg elemental magnesium) Calcium 2018-03 No Notes: Memoria Gluconate 04-06 WASTE: F/P l 08:54: - Sink; E Demar - Municipal Trash Bin Calcium 2018-03 No Notes: Memoria Carbonate 04-06 (Same As: l 500 MG 08:54: Tums) Demar Chewable 00 Calcium Tablet Carbonate 500 mg = 200 mg elemental calcium Dose = mg calcium carbonate ( mg elemental calcium) TENS unit Yes [id number] 1{kit} 1 Kit [facility] and 8- daily. ity of electrodes 00:00: [address] TENS unit Yes [id number] 1{kit} 1 Kit [facility] and 8-27 daily. ity of electrodes 00:00: [address] TENS unit Yes [id number] 1{kit} 1 Kit [facility] and 8-27 daily. ity of electrodes 00:00: [address] gabapentin 2019-0 Yes [id number] 400mg Take 1 [facility] 400 mg 8-27 capsule by ity of capsule 00:00: mouth 3 [place] (three) Medical times [place] daily. TENS unit 2019-0 Yes [id number] 1{kit} 1 Kit [facility] and 8-27 daily. ity of electrodes 00:00: [address] TENS unit 2019-0 Yes [id number] 1{kit} 1 Kit [facility] and 8-27 daily. ity of electrodes 00:00: [address] TENS unit 2018-0 Yes [id number] 1{kit} 1 Kit [facility] and 8-27 daily. ity of electrodes 00:00: [address] TENS unit 2018-0 Yes [id number] 1{kit} 1 Kit [facility] and 8-27 daily. ity of electrodes 00:00: [address] TENS unit 2018-0 Yes [id number] 1{kit} 1 Kit [facility] and 8-27 daily. ity of electrodes 00:00: [address] TENS unit 2019-0 Yes [id number] 1{kit} 1 Kit [facility] and 8-27 daily. ity of electrodes 00:00: [address] TENS unit 2019-0 Yes [id number] 1{kit} 1 Kit [facility] and 8-27 daily. ity of electrodes 00:00: [address] TENS unit 2019-0 Yes [id number] 1{kit} 1 Kit [facility] and 8-27 daily. ity of electrodes 00:00: [address] gabapentin 2019-0 Yes [id number] 400mg Take 1 Univers 400 mg 8-27 capsule by ity of capsule 00:00: mouth 3 [place] (three) Medical times [place] daily. TENS unit 2018-0 Yes [id number] 1{kit} 1 Kit [facility] and 8-27 daily. ity of electrodes 00:00: [address] TENS unit 2019-0 Yes [id number] 1{kit} 1 Kit [facility] and 8-27 daily. ity of electrodes 00:00: [address] TENS unit 2019-0 Yes [id number] 1{kit} 1 Kit [facility] and 8-27 daily. ity of electrodes 00:00: [address] TENS unit 2019-0 Yes [id number] 1{kit} 1 Kit Univers and 8-27 daily. ity of electrodes 00:00: [address] gabapentin 2019-0 Yes [id number] 400mg Take 1 [facility] 400 mg 8-27 capsule by ity of capsule 00:00: mouth 3 [place] (three) Medical times [place] daily. TENS unit 2019-0 Yes [id number] 1{kit} 1 Kit Univers and 8-27 daily. ity of electrodes 00:00: [address] Branch TENS unit 2019-0 Yes [id number] 1{kit} 1 Kit [facility] and 8-27 daily. ity of electrodes 00:00: [address] gabapentin 2019-0 Yes [id number] 400mg Take 1 [facility] 400 mg 8-27 capsule by ity of capsule 00:00: mouth 3 [place] (three) [facility] times [place] daily. TENS unit 2019-0 Yes [id number] 1{kit} 1 Kit Univers and 8-27 daily. ity of electrodes 00:00: [address] TENS unit 2019-0 Yes [id number] 1{kit} 1 Kit Univers and 8-27 daily. ity of electrodes 00:00: [address] TENS unit 2019-0 Yes [id number] 1{kit} 1 Kit Univers and 8-27 daily. ity of electrodes 00:00: [address] gabapentin 2019-0 Yes [id number] 400mg Take 1 [facility] 400 mg 8-27 capsule by ity of capsule 00:00: mouth 3 [place] [address] (three) Medical times [place] daily. TENS unit 2019-0 Yes [id number] 1{kit} 1 Kit Univers and 8-27 daily. ity of electrodes 00:00: [address] Branch TENS unit 2019-0 Yes [id number] 1{kit} 1 Kit [facility] and 8-27 daily. ity of electrodes 00:00: [address] TENS unit 2019-0 Yes [id number] 1{kit} 1 Kit Univers and 8-27 daily. ity of electrodes 00:00: [address] TENS unit 2019-0 Yes [id number] 1{kit} 1 Kit Univers and 8-27 daily. ity of electrodes 00:00: [facility] Medical Branch TENS unit 2019-0 Yes [id number] 1{kit} 1 Kit Univers and 8-27 daily. ity of electrodes 00:00: [facility] Medical Branch TENS unit 2019-0 Yes [id number] 1{kit} 1 Kit Univers and 8-27 daily. ity of electrodes 00:00: [facility] Medical Branch TENS unit 2019-0 Yes [id number] 1{kit} 1 Kit Univers and 8-27 daily. ity of electrodes 00:00: [facility] Medical Branch TENS unit 2019-0 Yes [id number] 1{kit} 1 Kit Univers and 8-27 daily. ity of electrodes 00:00: [place] [address] Medical Branch TENS unit 2018-0 Yes [id number] 1{kit} 1 Kit [facility] and 8-27 daily. ity of electrodes 00:00: [facility] Medical Branch TENS unit 2018-0 Yes [id number] 1{kit} 1 Kit Univers and 8-27 daily. ity of electrodes 00:00: [facility] Medical Branch TENS unit 2019-0 Yes [id number] 1{kit} 1 Kit Univers and 8-27 daily. ity of electrodes 00:00: [place] [address] Medical Branch TENS unit 2019-0 Yes [id number] 1{kit} 1 Kit Univers and 8-27 daily. ity of electrodes 00:00: [facility] Medical Branch TENS unit 2019-0 Yes [id number] 1{kit} 1 Kit Univers and 8-27 daily. ity of electrodes 00:00: [place] [address] Medical Branch TENS unit 2019-0 Yes [id number] 1{kit} 1 Kit [facility] and 8-27 daily. ity of electrodes 00:00: [facility] Medical Branch TENS unit 2019-0 Yes [id number] 1{kit} 1 Kit Univers and 8-27 daily. ity of electrodes 00:00: [place] [address] Medical Branch TENS unit 2019-0 Yes [id number] 1{kit} 1 Kit Univers and 8-27 daily. ity of electrodes 00:00: [place] [address] Medical Branch TENS unit 2019-0 Yes [id number] 1{kit} 1 Kit [facility] and 8-27 daily. ity of electrodes 00:00: [place] [address] Medical Branch TENS unit 2019-0 Yes [id number] 1{kit} 1 Kit Univers and 8-27 daily. ity of electrodes 00:00: [facility] 00 Medical Branch TENS unit 2019-0 Yes [id number] 1{kit} 1 Kit Univers and 8-27 daily. ity of electrodes 00:00: [facility] Medical Branch TENS unit 2019-0 Yes [id number] 1{kit} 1 Kit Univers and 8-27 daily. ity of electrodes 00:00: [facility] Medical Branch TENS unit 2018-0 Yes [id number] 1{kit} 1 Kit Univers and 8-27 daily. ity of electrodes 00:00: [facility] Medical Branch TENS unit 2018-0 Yes [id number] 1{kit} 1 Kit Univers and 8-27 daily. ity of electrodes 00:00: [facility] Medical Branch TENS unit 2018-0 Yes [id number] 1{kit} 1 Kit Univers and 8-27 daily. ity of electrodes 00:00: [facility] Medical Branch TENS unit 2018-0 Yes [id number] 1{kit} 1 Kit Univers and 8-27 daily. ity of electrodes 00:00: [facility] Medical Branch TENS unit 2018-0 Yes [id number] 1{kit} 1 Kit Univers and 8-27 daily. ity of electrodes 00:00: [facility] Medical Branch TENS unit 2019-0 Yes [id number] 1{kit} 1 Kit Univers and 8-27 daily. ity of electrodes 00:00: [facility] Medical Branch TENS unit 2018-0 Yes [id number] 1{kit} 1 Kit Univers and 8-27 daily. ity of electrodes 00:00: [facility] Medical Branch TENS unit 2019-0 Yes [id number] 1{kit} 1 Kit Univers and 8-27 daily. ity of electrodes 00:00: [facility] 00 Medical Branch TENS unit 2019-0 Yes [id number] 1{kit} 1 Kit Univers and 8-27 daily. ity of electrodes 00:00: [facility] 00 Medical Branch TENS unit 2019-0 Yes [id number] 1{kit} 1 Kit Univers and 8-27 daily. ity of electrodes 00:00: [facility] 00 Medical Branch TENS unit 2019-0 Yes [id number] 1{kit} 1 Kit Univers and 8-27 daily. ity of electrodes 00:00: [address] TENS unit 2019-0 Yes [id number] 1{kit} 1 Kit [facility] and 8-27 daily. ity of electrodes 00:00: [address] TENS unit 2019-0 Yes [id number] 1{kit} 1 Kit [facility] and 8-27 daily. ity of electrodes 00:00: [address] TENS unit 2019-0 Yes [id number] 1{kit} 1 Kit Univers and 8-27 daily. ity of electrodes 00:00: [address] TENS unit 2019-0 Yes [id number] 1{kit} 1 Kit [facility] and 8-27 daily. ity of electrodes 00:00: [address] TENS unit 2018-0 Yes [id number] 1{kit} 1 Kit Univers and 8-27 daily. ity of electrodes 00:00: [address] TENS unit 2018-0 Yes [id number] 1{kit} 1 Kit [facility] and 8-27 daily. ity of electrodes 00:00: [address] TENS unit 2018-0 Yes [id number] 1{kit} 1 Kit [facility] and 8-27 daily. ity of electrodes 00:00: [address] gabapentin 2019-0 Yes [id number] 400mg Take 1 Univers 400 mg 8-27 capsule by ity of capsule 00:00: mouth 3 [place] [address] (three) [facility] Branch daily. TENS unit 2018-0 Yes [id number] 1{kit} 1 Kit Univers and 8-27 daily. ity of electrodes 00:00: [address] TENS unit 2019-0 Yes [id number] 1{kit} 1 Kit Univers and 8-27 daily. ity of electrodes 00:00: [address] TENS unit 2019-0 Yes [id number] 1{kit} 1 Kit [facility] and 8-27 daily. ity of electrodes 00:00: [address] TENS unit 2019-0 Yes [id number] 1{kit} 1 Kit Univers and 8-27 daily. ity of electrodes 00:00: [address] TENS unit 2019-0 Yes [id number] 1{kit} 1 Kit Univers and 8-27 daily. ity of electrodes 00:00: [address] TENS unit 2019-0 Yes [id number] 1{kit} 1 Kit [facility] and 8-27 daily. ity of electrodes 00:00: [address] TENS unit 2019- Yes [id number] 1{kit} 1 Kit Univers and 8-27 daily. ity of electrodes 00:00: [place] [address] Medical Branch TENS unit 2018-0 Yes [id number] 1{kit} 1 Kit Univers and 8-27 daily. ity of electrodes 00:00: [address] TENS unit 2018-0 Yes [id number] 1{kit} 1 Kit Univers and 8-27 daily. ity of electrodes 00:00: [address] Branch gabapentin 2020- No [id number] 400mg Take 1 Univers 400 mg 11-12 capsule by ity of capsule 00:00: 00:00 mouth 3 [place] 00 :00 (three) Medical times Branch daily. gabapentin 2020- No [id number] 400mg Take 1 Univers 400 mg 11-12 capsule by ity of capsule 00:00: 00:00 mouth 3 [place] 00 :00 (three) Medical times [place] daily. Saline No Notes: [facility] Flush 0.9% 09-24 (Same as: l 14:00: BD Demar 00 Posiflush) Famotidine No Notes: Memor ia 09-24 (Same as: l 14:00: Pepcid) Levetiracet No Notes: [place] am 500 MG 09-24 (Same l Oral Tablet 14:00: as:Keppra) [Keppra] gabapentin No Notes: [facility] 300 MG Oral 09-24 (Same as: l Capsule 13:00: Neurontin) Acetaminoph No Notes: Max [facility] en 09-24 acetaminop l 11:44: hen 4000 00 mg/day (4 gm/day). (Same as: Tylenol Extra Strength) atorvastati No Notes: [place] n 09-24 (Same as: l 06:33: Lipitor) Saline No Notes: [facility] Flush 0.9% 09-24 (Same as: l 05:35: BD Dem[place] 00 Posiflush) Sodium No 1,000 mL, Memori a Chloride 09-24 Rate: 100 l 0.9% IV 05:35: ml/hr, [place] 1,000 mL 00 Infuse over: 10 hr, Route: IV, Dosing Weight 120.455 kg, Total Volume: 1,000, Start date: 09/24/18 0:35:00 CDT, Duration: 30 day, Stop date: 10/24/18 0:34:00 CDT, 2.45, m2, 0 Insulin 2018-0 No Notes: [facility] Lispro 09-24 (Same as: l 05:33: Humalog) Roll in palms of hands gently; Do not shake vigorously . WASTE: F/P - Black; E - [employer] Trash Bin Stable for 28 days at [...] Stop date: 10/24/18 0:32:00 CDT, 0 baclofen 2019- Yes [id number] 20mg Take 1 Tab [facility] (LIORESAL) 7-03 by mouth Colle ge 20 MG 00:00: every 6 of tablet 00 hours as Medicin needed. e baclofen 2019- Yes [id number] 20mg Take 1 Tab [facility] (LIORESAL) 7-03 by mouth Colle ge 20 MG 00:00: every 6 of tablet 00 hours as Medicin needed. e baclofen 20 2018- Yes 20mg Take 20 mg Univers mg tablet 7-03 by mouth. ity o f 00:00: [place] 00 [facility] baclofen 20 2018-0 Yes 20mg Take 20 mg Univers mg tablet 7-03 by mouth. ity o f 00:00: [facility] baclofen 20 2018-0 Yes 20mg Take 20 mg Univers mg tablet 7-03 by mouth. ity o f 00:00: [facility] baclofen 20 2018-0 Yes 20mg Take 20 mg Univers mg tablet 7-03 by mouth. ity o f 00:00: [facility] baclofen 20 2018-0 Yes 20mg Take 20 mg Univers mg tablet 7-03 by mouth. ity o f 00:00: [facility] baclofen 20 2018-0 Yes 20mg Take 20 mg Univers mg tablet 7-03 by mouth. ity o f 00:00: [facility] baclofen 20 2018-0 Yes 20mg Take 20 mg Univers mg tablet 7-03 by mouth. ity o f 00:00: [facility] baclofen 20 2018-0 Yes 20mg Take 20 mg Univers mg tablet 7-03 by mouth. ity o f 00:00: [facility] baclofen 20 2018-0 Yes 20mg Take 20 mg Univers mg tablet 7-03 by mouth. ity o f 00:00: [facility] baclofen 20 2018-0 Yes 20mg Take 20 mg Univers mg tablet 7-03 by mouth. ity o f 00:00: [facility] baclofen 20 2018-0 Yes 20mg Take 20 mg Univers mg tablet 7-03 by mouth. ity o f 00:00: [facility] baclofen 20 2018-0 Yes 20mg Take 20 mg Univers mg tablet 7-03 by mouth. ity o f 00:00: [facility] baclofen 20 2018-0 Yes 20mg Take 20 mg Univers mg tablet 7-03 by mouth. ity o f 00:00: [facility] baclofen 20 2018-0 Yes 20mg Take 20 mg Univers mg tablet 7-03 by mouth. ity o f 00:00: [facility] baclofen 20 2018-0 Yes 20mg Take 20 mg Univers mg tablet 7-03 by mouth. ity o f 00:00: [facility] baclofen 20 2018-0 Yes 20mg Take 20 mg Univers mg tablet 7-03 by mouth. ity o f 00:00: Medical Branch baclofen 20 2018-0 Yes 20mg Take 20 mg Univers mg tablet 7-03 by mouth. ity o f 00:00: [facility] Branch baclofen 20 2018- Yes 20mg Take 20 mg Univers mg tablet 7-03 by mouth. ity o f 00:00: [facility] baclofen 20 2018-0 Yes 20mg Take 20 mg Univers mg tablet 7-03 by mouth. ity o f 00:00: [facility] Branch baclofen 20 2018- Yes 20mg Take 20 mg Univers mg tablet 7-03 by mouth. ity o f 00:00: [facility] baclofen 20 2018- Yes 20mg Take 20 mg Univers mg tablet 7-03 by mouth. ity o f 00:00: [facility] baclofen 20 2018- Yes 20mg Take 20 mg Univers mg tablet 7-03 by mouth. ity o f 00:00: [facility] baclofen 20 2018- Yes 20mg Take 20 mg Univers mg tablet 7-03 by mouth. ity o f 00:00: [facility] lancets 31 2018-0 Yes [id number] Use BID, Univers gauge Misc 6-18 DX E11.9 ity o f 00:00: ([facility] Branch approval) lancets 31 2019-0 Yes [id number] Use BID, Univers gauge Misc 6-18 DX E11.9 ity o f 00:00: ([facility] Branch approval) blood sugar 2019-0 Yes [id number] Use BID, Univers diagnostic 6-18 DX E11.9 ity o f (BLOOD 00:00: ([facility] GLUCOSE [facility] Medical TEST) strip insurance [facility] approval) lancets 31 2019-0 Yes [id number] Use BID, Univers gauge Misc 6-18 DX E11.9 ity o f 00:00: ([facility] Branch approval) lancets 31 2019-0 Yes [id number] Use BID, Univers gauge Misc 6-18 DX E11.9 ity o f 00:00: ([facility] Branch approval) lancets 31 2019-0 Yes [id number] Use BID, Univers gauge Misc 6-18 DX E11.9 ity o f 00:00: ([facility] Branch approval) lancets 31 2019-0 Yes [id number] Use BID, Univers gauge Misc 6-18 DX E11.9 ity o f 00:00: ([facility] [place] 00 upon Medical insurance Branch approval) lancets 31 2019-0 Yes [id number] Use BID, Univers gauge Misc 6-18 DX E11.9 ity o f 00:00: ([facility] [place] 00 upon Medical insurance Branch approval) lancets 31 2019-0 Yes [id number] Use BID, Univers gauge Misc 6-18 DX E11.9 ity o f 00:00: ([facility] [place] 00 upon Medical insurance Branch approval) lancets 31 2019-0 Yes [id number] Use BID, Univers gauge Misc 6-18 DX E11.9 ity o f 00:00: ([facility] [place] 00 upon Medical insurance Branch approval) lancets 31 2019-0 Yes [id number] Use BID, Univers gauge Misc 6-18 DX E11.9 ity o f 00:00: ([facility] [place] 00 upon Medical insurance Branch approval) blood sugar 2019-0 Yes [id number] Use BID, Univers diagnostic 6-18 DX E11.9 ity o f (BLOOD 00:00: ([facility] [place] GLUCOSE 00 upon Medical TEST) strip insurance [facility] approval) lancets 31 2019-0 Yes [id number] Use BID, Univers gauge Misc 6-18 DX E11.9 ity o f 00:00: ([facility] [place] 00 upon Medical insurance Branch approval) lancets 31 2019-0 Yes [id number] Use BID, Univers gauge Misc 6-18 DX E11.9 ity o f 00:00: ([facility] [place] 00 upon Medical insurance Branch approval) lancets 31 2019-0 Yes [id number] Use BID, Univers gauge Misc 6-18 DX E11.9 ity o f 00:00: ([facility] [place] 00 upon Medical insurance Branch approval) lancets 31 2019-0 Yes [id number] Use BID, Univers gauge Misc 6-18 DX E11.9 ity o f 00:00: ([facility] [place] 00 upon Medical insurance Branch approval) blood sugar 2019-0 Yes [id number] Use BID, Univers diagnostic 6-18 DX E11.9 ity o f (BLOOD 00:00: ([facility] [place] GLUCOSE 00 upon Medical TEST) strip insurance [facility] approval) lancets 31 2019-0 Yes [id number] Use BID, Univers gauge Misc 6-18 DX E11.9 ity o f 00:00: ([facility] [place] 00 upon Medical insurance Branch approval) lancets 31 2019-0 Yes [id number] Use BID, Univers gauge Misc 6-18 DX E11.9 ity o f 00:00: ([facility] [place] 00 upon Medical insurance Branch approval) lancets 31 2019-0 Yes [id number] Use BID, Univers gauge Misc 6-18 DX E11.9 ity o f 00:00: ([facility] [place] 00 upon Medical insurance Branch approval) blood sugar 2019-0 Yes [id number] Use BID, Univers diagnostic 6-18 DX E11.9 ity o f (BLOOD 00:00: ([facility] [place] GLUCOSE 00 upon Medical TEST) strip insurance [facility] approval) lancets 31 2019-0 Yes [id number] Use BID, Univers gauge Misc 6-18 DX E11.9 ity o f 00:00: ([facility] [place] 00 upon Medical insurance Branch approval) lancets 31 2019-0 Yes [id number] Use BID, Univers gauge Misc 6-18 DX E11.9 ity o f 00:00: ([facility] [place] 00 upon Medical insurance Branch approval) lancets 31 2019-0 Yes [id number] Use BID, Univers gauge Misc 6-18 DX E11.9 ity o f 00:00: ([facility] [place] 00 upon Medical insurance Branch approval) blood sugar 2019-0 Yes [id number] Use BID, Univers diagnostic 6-18 DX E11.9 ity o f (BLOOD 00:00: ([facility] [place] GLUCOSE 00 upon Medical TEST) strip insurance [facility] approval) lancets 31 2019-0 Yes [id number] Use BID, Univers gauge Misc 6-18 DX E11.9 ity o f 00:00: ([facility] [place] 00 upon Medical insurance Branch approval) lancets 31 2019-0 Yes [id number] Use BID, Univers gauge Misc 6-18 DX E11.9 ity o f 00:00: ([facility] [place] 00 upon Medical insurance Branch approval) lancets 31 2019-0 Yes [id number] Use BID, Univers gauge Misc 6-18 DX E11.9 ity o f 00:00: ([facility] [place] 00 upon Medical insurance Branch approval) lancets 31 2019-0 Yes [id number] Use BID, Univers gauge Misc 6-18 DX E11.9 ity o f 00:00: ([facility] [place] 00 upon Medical insurance Branch approval) lancets 31 2019-0 Yes [id number] Use BID, Univers gauge Misc 6-18 DX E11.9 ity o f 00:00: ([facility] [place] 00 upon Medical insurance Branch approval) lancets 31 2019-0 Yes [id number] Use BID, Univers gauge Misc 6-18 DX E11.9 ity o f 00:00: ([facility] [place] 00 upon Medical insurance Branch approval) lancets 31 2019-0 Yes [id number] Use BID, Univers gauge Misc 6-18 DX E11.9 ity o f 00:00: ([facility] [place] upon Medical insurance Branch approval) lancets 31 2019-0 Yes [id number] Use BID, Univers gauge Misc 6-18 DX E11.9 ity o f 00:00: ([facility] [place] upon Medical insurance Branch approval) lancets 31 2019-0 Yes [id number] Use BID, Univers gauge Misc 6-18 DX E11.9 ity o f 00:00: ([facility] [place] upon Medical insurance Branch approval) blood sugar 2019-0 Yes [id number] Use BID, Univers diagnostic 6-18 DX E11.9 ity o f (BLOOD 00:00: ([facility] GLUCOSE 00 upon Medical TEST) strip insurance [facility] approval) lancets 31 2019-0 Yes [id number] Use BID, Univers gauge Misc 6-18 DX E11.9 ity o f 00:00: ([facility] [place] upon Medical insurance Branch approval) lancets 31 2019-0 Yes [id number] Use BID, Univers gauge Misc 6-18 DX E11.9 ity o f 00:00: ([facility] [place] upon Medical insurance Branch approval) lancets 31 2019-0 Yes [id number] Use BID, Univers gauge Misc 6-18 DX E11.9 ity o f 00:00: ([facility] [place] upon Medical insurance Branch approval) lancets 31 2019-0 Yes [id number] Use BID, Univers gauge Misc 6-18 DX E11.9 ity o f 00:00: ([facility] [place] upon Medical insurance Branch approval) lancets 31 2019-0 Yes [id number] Use BID, Univers gauge Misc 6-18 DX E11.9 ity o f 00:00: ([facility] [place] upon Medical insurance Branch approval) lancets 31 2019-0 Yes [id number] Use BID, Univers gauge Misc 6-18 DX E11.9 ity o f 00:00: ([facility] [place] 00 upon Medical insurance Branch approval) lancets 31 2019-0 Yes [id number] Use BID, Univers gauge Misc 6-18 DX E11.9 ity o f 00:00: ([facility] [place] 00 upon Medical insurance Branch approval) lancets 31 2019-0 Yes [id number] Use BID, Univers gauge Misc 6-18 DX E11.9 ity o f 00:00: ([facility] [place] 00 upon Medical insurance Branch approval) lancets 31 2019-0 Yes [id number] Use BID, Univers gauge Misc 6-18 DX E11.9 ity o f 00:00: ([facility] [place] 00 upon Medical insurance Branch approval) lancets 31 2019-0 Yes [id number] Use BID, Univers gauge Misc 6-18 DX E11.9 ity o f 00:00: ([facility] [place] 00 upon Medical insurance Branch approval) blood sugar 2019-0 Yes [id number] Use BID, Univers diagnostic 6-18 DX E11.9 ity o f (BLOOD 00:00: ([facility] [place] GLUCOSE 00 upon Medical TEST) strip insurance [facility] approval) lancets 31 2019-0 Yes [id number] Use BID, Univers gauge Misc 6-18 DX E11.9 ity o f 00:00: ([facility] [place] 00 upon Medical insurance Branch approval) lancets 31 2019-0 Yes [id number] Use BID, Univers gauge Misc 6-18 DX E11.9 ity o f 00:00: ([facility] [place] 00 upon Medical insurance Branch approval) lancets 31 2019-0 Yes [id number] Use BID, Univers gauge Misc 6-18 DX E11.9 ity o f 00:00: ([facility] [place] 00 upon Medical insurance Branch approval) lancets 31 2019-0 Yes [id number] Use BID, Univers gauge Misc 6-18 DX E11.9 ity o f 00:00: ([facility] [place] upon Medical insurance Branch approval) lancets 31 2019-0 Yes [id number] Use BID, Univers gauge Misc 6-18 DX E11.9 ity o f 00:00: ([facility] [place] upon Medical insurance Branch approval) lancets 31 2019-0 Yes [id number] Use BID, Univers gauge Misc 6-18 DX E11.9 ity o f 00:00: ([facility] [place] 00 upon Medical insurance Branch approval) lancets 31 2019-0 Yes [id number] Use BID, Univers gauge Misc 6-18 DX E11.9 ity o f 00:00: ([facility] [place] upon Medical insurance Branch approval) lancets 31 2019-0 Yes [id number] Use BID, Univers gauge Misc 6-18 DX E11.9 ity o f 00:00: ([facility] [place] upon Medical insurance Branch approval) lancets 31 2019-0 Yes [id number] Use BID, Univers gauge Misc 6-18 DX E11.9 ity o f 00:00: ([facility] [place] upon Medical insurance Branch approval) lancets 31 2019-0 Yes [id number] Use BID, Univers gauge Misc 6-18 DX E11.9 ity o f 00:00: ([facility] [place] upon Medical insurance Branch approval) blood sugar 2019-0 Yes [id number] Use BID, Univers diagnostic 6-18 DX E11.9 ity o f (BLOOD 00:00: ([facility] [place] GLUCOSE 00 upon Medical TEST) strip insurance [facility] approval) lancets 31 2019-0 Yes [id number] Use BID, Univers gauge Misc 6-18 DX E11.9 ity o f 00:00: ([facility] [place] upon Medical insurance Branch approval) lancets 31 2019-0 Yes [id number] Use BID, Univers gauge Misc 6-18 DX E11.9 ity o f 00:00: ([facility] [place] upon Medical insurance Branch approval) lancets 31 2019-0 Yes [id number] Use BID, Univers gauge Misc 6-18 DX E11.9 ity o f 00:00: ([facility] [place] upon Medical insurance Branch approval) lancets 31 2019-0 Yes [id number] Use BID, Univers gauge Misc 6-18 DX E11.9 ity o f 00:00: ([facility] [place] upon Medical insurance Branch approval) lancets 31 2019-0 Yes [id number] Use BID, Univers gauge Misc 6-18 DX E11.9 ity o f 00:00: ([facility] [place] upon Medical insurance Branch approval) lancets 31 2019-0 Yes [id number] Use BID, Univers gauge Misc 6-18 DX E11.9 ity o f 00:00: ([facility] [place] upon Medical insurance Branch approval) lancets 31 2019-0 Yes [id number] Use BID, Univers gauge Misc 6-18 DX E11.9 ity o f 00:00: ([facility] [place] 00 upon Medical insurance Branch approval) lancets 31 2019-0 Yes [id number] Use BID, Univers gauge Misc 6-18 DX E11.9 ity o f 00:00: ([facility] [place] 00 upon Medical insurance Branch approval) lancets 31 2019-0 Yes [id number] Use BID, Univers gauge Misc 6-18 DX E11.9 ity o f 00:00: ([facility] [place] 00 upon Medical insurance Branch approval) lancets 31 2019-0 Yes [id number] Use BID, Univers gauge Misc 6-18 DX E11.9 ity o f 00:00: ([facility] [place] 00 upon Medical insurance Branch approval) lancets 31 2019-0 Yes [id number] Use BID, Univers gauge Misc 6-18 DX E11.9 ity o f 00:00: ([facility] [place] 00 upon Medical insurance Branch approval) blood sugar 2019-0 Yes [id number] Use BID, Univers diagnostic 6-18 DX E11.9 ity o f (BLOOD 00:00: ([facility] [place] GLUCOSE 00 upon Medical TEST) strip insurance [facility] approval) lancets 31 2019-0 Yes [id number] Use BID, Univers gauge Misc 6-18 DX E11.9 ity o f 00:00: ([facility] [place] 00 upon Medical insurance Branch approval) lancets 31 2019-0 Yes [id number] Use BID, Univers gauge Misc 6-18 DX E11.9 ity o f 00:00: ([facility] [place] 00 upon Medical insurance Branch approval) lancets 31 2019-0 Yes [id number] Use BID, Univers gauge Misc 6-18 DX E11.9 ity o f 00:00: ([facility] [place] 00 upon Medical insurance Branch approval) lancets 31 2019-0 Yes [id number] Use BID, Univers gauge Misc 6-18 DX E11.9 ity o f 00:00: (Brand [place] upon Medical insurance Branch approval) lancets 31 2019-0 Yes [id number] Use BID, Univers gauge Misc 6-18 DX E11.9 ity o f 00:00: (Brand [place] upon Medical insurance Branch approval) lancets 31 2019-0 Yes [id number] Use BID, Univers gauge Misc 6-18 DX E11.9 ity o f 00:00: (Brand [place] upon Medical insurance Branch approval) lancets 31 Yes [id number] Use BID, Univers gauge Misc 6-18 DX E11.9 ity o f 00:00: (Brand [place] upon Medical insurance Branch approval) lancets Yes [id number] Use BID, Univers gauge Misc 6-18 DX E11.9 ity o f 00:00: (Brand [place] upon Medical insurance Branch approval) lancets Yes [id number] Use BID, Univers gauge Misc 6-18 DX E11.9 ity o f 00:00: (Brand [place] upon Medical insurance Branch approval) lancets Yes [id number] Use BID, Univers gauge Misc 6-18 DX E11.9 ity o f 00:00: (Brand [place] upon Medical insurance Branch approval) blood sugar 2020- No [id number] Use BID, Univers diagnostic 6-18 04-01 DX E11.9 ity of (BLOOD 00:00: 00:00 ([facility] GLUCOSE 00 :00 upon Medical TEST) strip insurance [facility] approval) blood sugar 2020- No [id number] Use BID, Univers diagnostic 18 14 DX E11.9 ity of (BLOOD 00:00: 00:00 ([facility] GLUCOSE 00 :00 upon Medical TEST) strip insurance [facility] approval) QUEtiapine Yes 100mg Take 100 Un hunter 100 mg 6-11 mg by ity of tablet 14:44: mouth at [place] 13 bedtime. Medical Branch hydrocortis Yes 10mg Take 10 mg Univers one 10 mg 6-11 by mouth ity of tablet 14:44: every [place] 13 morning. Medical Branch tamsulosin Yes .4mg Take 0.4 Uni vers 0.4 mg 24 6-11 mg by ity of hr capsule 14:44: mouth [place] 13 daily. Medical Branch QUEtiapine Yes 100mg Take 100 Un hunter 100 mg 6-11 mg by ity of tablet 14:44: mouth at [place] 13 bedtime. Medical Branch hydrocortis Yes 10mg Take 10 mg Univers one 10 mg 6-11 by mouth ity of tablet 14:44: every [place] 13 morning. Medical Branch tamsulosin Yes .4mg Take 0.4 Uni vers 0.4 [...] at [place] 13 bedtime. Medical Branch hydrocortis [id number] Yes 10mg Take 10 mg Univers one [...] 13 daily. Medical Branch gabapentin 2019-0 Yes [id number] 300mg Take 1 [facility] 300 mg 6-11 capsule by ity of capsule 00:00: mouth 3 [place] 00 (three) Medical times Branch daily. gabapentin 2019-0 Yes [id number] 300mg Take 1 [facility] 300 mg 6-11 capsule by ity of capsule 00:00: mouth 3 [place] 00 (three) Medical times Branch daily. gabapentin 2019-0 Yes [id number] 300mg Take 1 [facility] 300 mg 6-11 capsule by ity of capsule 00:00: mouth 3 [place] 00 (three) Medical times Branch daily. gabapentin 2018- 2019- No [id number] 300mg Take 1 [facility] 300 mg 6-11 08-27 capsule by ity of capsule 00:00: 00:00 mouth 3 [place] 00 :00 (three) Medical times Branch daily. gabapentin 2018- 2019- No [id number] 300mg Take 1 Univers 300 mg 6-11 08-27 capsule by ity of capsule 00:00: 00:00 mouth 3 [place] 00 :00 (three) Medical times Branch daily. gabapentin 2018- 2019- No [id number] 300mg Take 1 [facility] 300 mg 6-11 08-27 capsule by ity of capsule 00:00: 00:00 mouth 3 [place] 00 :00 (three) Medical times Branch daily. melatonin 3 2019-0 Yes 3mg QD Take [address] [facility] mg Tab 6-06 tablet (3 [facility] tablet 00:[facility]: mg total) Medica l 00 by mouth Center nightly. zinc 2019-[address] [facility] oxide-marc 6-06 liberally Yana es latum 00:00: 2 times a Medical (CRITIC-AID day to Center ) 20-51 % buttock [...] latum 00:00: 2 times a Medical (CRITIC-AID day to Center ) 20-51 % buttock Pste skin tear. topical paste famotidine 2019 Yes 20mg Take 1 [facility] [...] latum 00:00: 2 times a Medical (CRITIC-AID day to Center ) 20-51 % buttock Pste skin tear. topical paste Metformin No Notes: Memori a hydrochlori 5-20 (Same as: l de 500 MG 14:00: Glucophage He rmann Oral Tablet 00 ) Take with meal Aspirin 81 Yes 81 mg = 1 Me moria MG Enteric 5-19 tab, PO, l Coated 15:21: Daily, # Demar Tablet 00 90 tab, 3 Refill(s), Pharmacy: [id number] Lactulose No Notes: Memori a 667 MG/ML 5-19 (Same l Oral 11:54: as:Chronul Demar Solution 00 ac) Seroquel No Notes: Memoria 5-19 (Same as: l 02:00: SEROquel) Demar 00 tamsulosin No Notes: Memor ia 5-18 (Same As: l 14:00: Flomax) Demar 00 "Do Not Crush" Sertraline No Notes: Memor [...] MG 5-18 (Same l Oral Tablet 07:35: as:Keppra) Trazodone Yes PO, 0 Memoria 5-18 Refill(s) l 07:34: Hydrocortis Yes 10 mg, PO, Memoria one 5-18 Daily, 0 l 07:34: Refill(s) sertraline Yes 100 mg = 1 M emoria 100 mg oral 5-18 tab, PO, l tablet 07:34: Daily, # 00 30 tab, 0 Refill(s) heparin No Notes: Memoria 5-18 porcine l 05:00: heparin [place] 00 atorvastati Yes 80 mg = 1 M emoria n 80 mg 5-18 tab, PO, l oral tablet 03:33: Daily, 0 He rmann 00 Refill(s) hydrocortis No 10 mg = [...] 0.9% 5-18 (Same as: l 02:00: BD [place] Posiflush) Aspirin 325 No Notes: (Do Memoria MG Enteric 5-18 Not Crush) l Coated 02:00: Do not [place] Tablet 00 crush or chew. Docusate No Notes: Memoria 5-18 (Same as: l 02:00: Colace) [place] (Do Not Crush) atorvastati No Notes: [place] n 5-18 Same as l 02:00: Lipitor [place] Saline No Notes: Memoria Flush 0.9% 5-18 (Same as: l 01:29: BD Demar Posiflush) Acetaminoph No Notes: Do M emoria en 5-18 not exceed l 01:29: 4 gm/day. [place] (Same as: Tylenol) Iohexol No 100 mL, Memoria 5-18 Route: l 00:08: IVP, Drug Demar 00 Form: SOLN, Dosing Weight 118.182, kg, ONCALL, STAT, Start date: 08/02/18 19:08:00 CDT, Duration: 1 doses or times, Dose = 2.2ml/kg, Max dose = 100ml -- "To be infused by Radiology Staff ONLY" TENS unit 2019-0 Yes [id number] 1{kit} 1 Kit Univers and 4- daily. ity of electrodes 00:00: [facility] 00 Medical Branch TENS unit 2019-0 Yes [id number] 1{kit} 1 Kit Univers and 4- daily. ity of electrodes 00:00: [facility] 00 Medical Branch TENS unit 2019-0 Yes [id number] 1{kit} 1 Kit Univers and 06-25 daily. ity of electrodes 00:00: [facility] 00 Medical Branch TENS unit 2019-0 2019- No [id number] 1{kit} 1 Kit Univers and 06-25 daily. ity of electrodes 00:00: 00:00 [facility] 00 :00 Medical Branch TENS unit 2018-0 2019- No [id number] 1{kit} 1 Kit Univers and 06-25 daily. ity of electrodes 00:00: 00:00 [facility] 00 :00 Medical Branch TENS unit 2018-0 2019- No [id number] 1{kit} 1 Kit Univers and 06-25 daily. ity of electrodes 00:00: 00:00 [facility] 00 :00 Medical Branch levETIRAcet 2018-0 Yes [id number] 500mg Take 1 Univers am 500 mg 1-25 tablet by ity o f tablet 00:00: mouth 2 [place] ([facility]) Medical times Branch daily. levETIRAcet 2018-0 Yes [id number] 500mg Take 1 Univers am 500 mg 1-25 tablet by ity o f tablet 00:00: mouth 2 [place] (two) Medical times Branch daily. levETIRAcet 2018-0 Yes [id number] 500mg Take 1 Univers am 500 mg 1-25 tablet by ity o f tablet 00:00: mouth 2 (two) Medical times Branch daily. levETIRAcet 2018-0 Yes [id number] 500mg Take 1 Univers am 500 mg 1-25 tablet by ity o f tablet 00:00: mouth 2 [place] (two) Medical times Branch daily. levETIRAcet 2018-0 Yes [id number] 500mg Take 1 Univers am 500 mg 1-25 tablet by ity o f tablet 00:00: mouth 2 [place] (two) Medical times Branch daily. levETIRAcet 2019-0 Yes [id number] 500mg Take 1 Univers am 500 mg 1-25 tablet by ity o f tablet 00:00: mouth 2 [place] 00 (two) Medical times Branch daily. levETIRAcet Yes [id number] 500mg Take 1 Univers am 500 mg 1-25 tablet by ity o f tablet 00:00: mouth 2 [place] 00 (two) Medical times Branch daily. levETIRAcet Yes [id number] 500mg Take 1 Univers am 500 mg 1-25 tablet by ity o f tablet 00:00: mouth 2 [place] 00 (two) Medical times Branch daily. levETIRAcet Yes [id number] 500mg Take 1 Univers am 500 mg 1-25 tablet by ity o f tablet 00:00: mouth 2 [place] (two) Medical times Branch daily. levETIRAcet 2019- No [id number] 500mg Take 1 Univers am 500 mg 1-25 01-14 tablet by ity of tablet 00:00: 00:00 mouth 2 [place] 00 :00 (two) Medical times Branch daily. levETIRAcet 2020- No [id number] 500mg Take 1 Univers am 500 mg 1-25 -14 tablet by ity of tablet 00:00: 00:00 mouth 2 [place] 00 :00 (two) Medical times Branch daily. atorvastati 2017-03 Yes [id number] 80mg Take 1 Univers n 80 mg 0-19 tablet by ity of tablet 00:00: mouth at [place] 00 bedtime. Medical Branch SERTraline 2017-03 Yes [id number] 100mg Take 1 Univers 100 mg 0-19 tablet by ity of tablet 00:00: mouth [place] 00 every Medical morning. Branch metFORMIN 2017-03 Yes [id number] 1000mg Take 1 Univers 1,000 mg 0-19 tablet by ity of tablet 00:00: mouth 2 [place] 00 (two) Medical times Branch daily with meals. atorvastati 2017-03 Yes [id number] 80mg Take 1 Univers n 80 mg 0-19 tablet by ity of tablet 00:00: mouth at [place] 00 bedtime. Medical Branch SERTraline 2017-03 Yes [id number] 100mg Take 1 Univers 100 mg 0-19 tablet by ity of tablet 00:00: mouth [place] 00 every Medical morning. Branch metFORMIN 2017-03 Yes [id number] 1000mg Take 1 Univers 1,000 mg 0-19 tablet by ity of tablet 00:00: mouth 2 [place] (two) Medical times Branch daily with meals. atorvastati 2017-03 Yes [id number] 80mg Take 1 Univers n 80 mg 0-19 tablet by ity of tablet 00:00: mouth at [place] 00 bedtime. Medical Branch SERTraline 2017-03 Yes [id number] 100mg Take 1 Univers 100 mg 0-19 tablet by ity of tablet 00:00: mouth [place] 00 every Medical morning. Branch metFORMIN 2017-03 Yes [id number] 1000mg Take 1 Univers 1,000 mg 0-19 tablet by ity of tablet 00:00: mouth 2 (two) Medical times Branch daily with meals. atorvastati 2017-03 Yes [id number] 80mg Take 1 Univers n 80 mg 0-19 tablet by ity of tablet 00:00: mouth at [place] 00 bedtime. Medical Branch SERTraline 2017-03 Yes [id number] 100mg Take 1 Univers 100 mg 0-19 tablet by ity of tablet 00:00: mouth [place] 00 every Medical morning. Branch metFORMIN 2017-03 Yes [id number] 1000mg Take 1 Univers 1,000 mg 0-19 tablet by ity of tablet 00:00: mouth 2 (two) Medical times Branch daily with meals. atorvastati 2017-03 Yes [id number] 80mg Take 1 Univers n 80 mg 0-19 tablet by ity of tablet 00:00: mouth at [place] 00 bedtime. Medical Branch SERTraline 2017-03 Yes [id number] 100mg Take 1 Univers 100 mg 0-19 tablet by ity of tablet 00:00: mouth [place] 00 every Medical morning. Branch metFORMIN 2017-03 Yes [id number] 1000mg Take 1 Univers 1,000 mg 0-19 tablet by ity of tablet 00:00: mouth 2 (two) Medical times Branch daily with meals. atorvastati 2017-03 Yes [id number] 80mg Take 1 Univers n 80 mg 0-19 tablet by ity of tablet 00:00: mouth at [place] 00 bedtime. Medical Branch SERTraline 2017-03 Yes [id number] 100mg Take 1 Univers 100 mg 0-19 tablet by ity of tablet 00:00: mouth [place] 00 every Medical morning. Branch metFORMIN 2017-03 Yes [id number] 1000mg Take 1 Univers 1,000 mg 0-19 tablet by ity of tablet 00:00: mouth 2 [place] 00 (two) Medical times Branch daily with meals. atorvastati 2017-03 Yes [id number] 80mg Take 1 Univers n 80 mg 0-19 tablet by ity of tablet 00:00: mouth at [place] 00 bedtime. Medical Branch SERTraline 2017-03 Yes [id number] 100mg Take 1 Univers 100 mg 0-19 tablet by ity of tablet 00:00: mouth [place] 00 every Medical morning. Branch metFORMIN 2017-03 Yes [id number] 1000mg Take 1 Univers 1,000 mg 0-19 tablet by ity of tablet 00:00: mouth 2 [place] (two) Medical times Branch daily with meals. atorvastati 2017-03 Yes [id number] 80mg Take 1 Univers n 80 mg 0-19 tablet by ity of tablet 00:00: mouth at [place] 00 bedtime. Medical Branch SERTraline 2017-03 Yes [id number] 100mg Take 1 Univers 100 mg 0-19 tablet by ity of tablet 00:00: mouth [place] 00 every Medical morning. Branch metFORMIN 2017-03 Yes [id number] 1000mg Take 1 Univers 1,000 mg 0-19 tablet by ity of tablet 00:00: mouth 2 [place] (two) Medical times Branch daily with meals. atorvastati 2017-03 Yes [id number] 80mg Take 1 Univers n 80 mg 0-19 tablet by ity of tablet 00:00: mouth at [place] 00 bedtime. Medical Branch SERTraline 2017-03 Yes [id number] 100mg Take 1 Univers 100 mg 0-19 tablet by ity of tablet 00:00: mouth [place] 00 every Medical morning. Branch metFORMIN 2017-03 Yes [id number] 1000mg Take 1 Univers 1,000 mg 0-19 tablet by ity of tablet 00:00: mouth 2 [place] 00 (two) Medical times Branch daily with meals. atorvastati 2017-03- No [id number] 80mg Take 1 Univers n 80 mg 0-19 -14 tablet by ity of tablet 00:00: 00:00 mouth at [place] 00 :00 bedtime. Medical Branch SERTraline 2017-03- No [id number] 100mg Take 1 Univers 100 mg 0-19 -14 tablet by ity of tablet 00:00: 00:00 mouth [place] 00 :00 every Medical morning. Branch metFORMIN 2017-03- No [id number] 1000mg Take 1 Univers 1,000 mg 0-19 -14 tablet by ity o f tablet 00:00: 00:00 mouth 2 [place] 00 :00 (two) Medical times Branch daily with meals. atorvastati 2017-03- No [id number] 80mg Take 1 Univers n 80 mg 0-19 -14 tablet by ity of tablet 00:00: 00:00 mouth at [place] 00 :00 bedtime. Medical Branch SERTraline 2017-03- No [id number] 100mg Take 1 Univers 100 mg 0-06 04-14 tablet by ity of tablet 00:00: 00:00 mouth [place] 00 :00 every Medical morning. Branch metFORMIN 2017-03- No [id number] 1000mg Take 1 Univers 1,000 mg 0-06 04-14 tablet by ity o f tablet 00:00: 00:00 mouth 2 [place] 00 :00 (two) Medical times Branch daily with meals. Saline No Notes: Memoria Flush 0.9% 8-17 (Same as: l 02:00: BD [place] 00 Posiflush) atorvastati No Notes: [place] n 8-17 (Same as: l 02:00: Lipitor) Doxepin No Notes: Memoria 8-17 (Same as: l 02:00: SINEquan) Saline No Notes: [facility] Flush 0.9% 8-16 (Same as: l 14:46: BD [place] 00 Posiflush) tamsulosin No Notes: Memor ia 8-16 (Same As: l 14:00: Flomax) "Do Not Crush" sennosides, No Notes: [place] HALF-WAY 8.6 MG 8-16 (Same as: l Oral Tablet 14:00: Senokot) He rm Metformin No Notes: Memori a hydrochlori 8-16 (Same as: l de 500 MG 14:00: Glucophage He rmann Oral Tablet 00 ) Take with meal Lorazepam No Notes: Memori a 8-16 (Same as: l 14:00: Ativan) Demar 00 Levetiracet No Notes: [place] am 500 [...] " WASTE: F/P - Black; E - Municipal [...] sennosides, Yes 8.6 mg = 1 Memoria HALF-WAY 8.6 MG 8-16 tab, PO, l Oral Tablet 07:10: Daily, 0 He rmann 00 Refill(s) docusate 0 Yes 100 mg, Memori a sodium 8-16 PO, BID, 0 l 07:10: Refill(s) Demar 00 Lorazepam 1 Yes 1 mg = 1 Me moria MG Oral 8-16 tab, PO, l Tablet 07:10: TID, 0 [place] 00 Refill(s) Aspirin 81 Yes 81 mg = 1 Me moria MG Chewable 8-16 tab, PO, l Tablet 07:10: Daily, Demar 00 tab, 0 Refill(s) pneumococca No 0.5 [...] PO, l oral tablet 06:41: Bedtime, # [place] 00 30 tab, 0 Refill(s) normal No 1,000 mL, Memori a saline 0.9% 8-16 Rate: 75 l IV 1,000 mL 04:39: ml/hr, Herm shelton 00 Infuse over: 13.3 hr, Route: IV, Dosing Weight 113.636 kg, Total Volume: 1,000, Start date: 10/31/17 23:39:00 CDT, Duration: 30 day, Stop date: 11/30/17 23:38:00 CDT, 2.38, m2 Zofran No Notes: Memoria 8-16 (Same as: l 04:36: Zofran) Demar MEDICATION WASTE Product Size: 4 mg Product Wasted: ___ mg Morphine No Notes: Memoria 11-01 (Same l 04:36: as:MORPhin e Sulfate) Saline No Notes: [facility] Flush 0.9% 11-01 (Same as: l 00:54: BD [place] 00 Posiflush) sennosides, No 8.6 mg = 1 Memoria HALF-WAY 8.6 MG 4-12 tab, PO, l Oral Tablet 23:24: Daily, 0 He rmann 00 Refill(s) atorvastati No 20 mg = 1 M emoria n 20 mg 4-12 tab, PO, l oral tablet 23:24: Bedtime, 0 [place] 00 Refill(s) Levetiracet No 500 mg = 1 Memoria am 500 MG 4-12 tab, PO, l Oral Tablet 23:24: Q12H, 0 Her adams 00 Refill(s) enoxaparin No 40 mg = [place] 40 mg/0.4 4-12 0.4 mL, l mL 23:24: SUB-Q, [place] subcutaneou 00 [id number], s solution 0 Refill(s) Docusate No 100 mg = 1 Mem oria Sodium 100 4-12 cap, PO, l MG Oral 23:24: BID, 0 Demar Capsule 00 Refill(s) Aspirin 81 No 81 mg = 1 Me moria MG Enteric 4-12 tab, PO, l Coated 23:24: Daily, 0 Demar Tablet 00 Refill(s) Acetaminoph No 100.4 F, M emoria en 325 MG 4-12 0 l Oral Tablet 23:24: Refill(s) H ermann 00 tamsulosin No 0.4 mg = 1 M emoria 0.4 mg oral 4-12 cap, PO, l capsule 23:24: Daily, 0 Maur[place] n 00 Refill(s) sertraline No 100 mg = 1 M emoria 100 mg oral 4-12 tab, PO, l tablet 23:24: Daily, 0 Demar 00 Refill(s) Docusate No Notes: Memoria Sodium 100 -10 (Same as: l MG Oral 22:00: Colace) Demar Capsule (Do Not Crush) Bisacodyl No Notes: Memori a 4-10 (Same As: l 20:45: Dulcolax, Bisco-Lax) Keppra No Notes: Memoria 4-10 (Same l 17:22: as:Keppra) Calcium No Notes: Memoria Gluconate 06-26 WASTE: F/P l 13:27: - Sink; E - Municipal Trash Bin Hydralazine No Notes: [place] 06-25 (Same as: l 13:45: Apresoline ) Push over 5 minutes Acetaminoph No Notes: Do M emoria en 06-25 not exceed l 13:45: 4 gm/day. [place] (Same as: Tylenol) Zofran No Notes: Memoria [...] from ____Date sennosides, No Notes: [place] HALF-WAY 8.6 MG 06-24 (Same as: l Oral Tablet 14:00: Senokot) rm Sertraline No Notes: Memor ia -08 (Same as: l 14:00: Zoloft) tamsulosin No 0.4 mg, [place] 06-24 Route: PO, l 14:00: Drug form: Demar 00 CAP, Daily, Dosing Weight 115.455, kg, Start date: 06/24/17 9:00:00 CDT, Duration: 30 day, Stop date: 07/23/17 9:00:00 CDT pneumococca No Notes: [place] l capsular 06-24 (Same as: l polysacchar 13:00: Pneumovax H ermann paula type 1 00 23) vaccine / Refrigerat pneumococca e l capsular polysacchar [place] type 10A vaccine / pneumococca l capsular polysacchar [place] type 11A vaccine / pneumococca l capsular polysacchar [place] type 12F vaccine / pneumococca l capsular polysacchar Iohexol No 60 mL, Memoria 06-24 Route: l 06:43: IVP, Drug Form: SOLN, Dosing Weight 115.455, kg, ONCALL, STAT, Start date: 06/24/17 1:43:00 CDT, Duration: 1 doses or times, Dose = 2.2ml/kg, Max dose = 100ml -- "To be infused by Radiology Staff ONLY" Lovenox No Notes: Memoria 06-24 (Same as: l 03:00: Lovenox) atorvastati No Notes: [place] n 08 (Same As: l 02:29: Lipitor) tamsulosin No Notes: Memor ia -08 (Same As: l 02:23: Flomax) "Do Not Crush" Aspirin No Notes: Do Memor ia -08 not crush l 02:21: or chew. (Same As: Ecotrin) Insulin No 60 units) [place] regular 06-24 WASTE: F/P l 02:20: - Black; E - Municipal Trash Bin Stable for 28 days at room temperatur e Expires in days from ____Date Dextrose 2017-0 No 25 gm, 50 [place] 50% Syringe 4-08 mL, Route: l 02:20: IVP, Drug Form: INJ, Dosing Weight 115.455, kg, PRN, PRN Blood Glucose Results, Start date: 06/23/17 21:20:00 CDT, Duration: 30 day, Stop date: 07/23/17 21:19:00 CDT Glucagon 2017- No 1 mg, Memoria 4-08 Route: IM, l 02:20: Drug form: Demar 00 PDR/INJ, PRN, Dosing Weight 115.455, kg, PRN Blood Glucose Results, Start date: 06/23/17 21:20:00 CDT, Duration: 30 day, Stop date: 07/23/17 21:19:00 CDT Baclofen 2017- No Route: Memoria 4-08 INTRATHECA l 02:19: L, Drug form: INJ, Continuous , Dosing Weight 115.455, kg, PRN as needed for muscle spasm, Start date: 06/23/17 21:19:00 CDT, Duration: 30 day, Stop date: 07/23/17 21:18:00 CDT Saline 2017- No Notes: [facility] Flush 0.9% 4-08 (Same as: l 02:00: BD Posiflush) Saline 0 No Notes: [facility] Flush 0.9% 4-08 (Same as: l 01:01: BD Posiflush) olanzapine Yes [id number] 5mg Take 1 Tab [facility] (ZYPREXA) 5 3-27 by mouth Gema ege MG tablet 00:00: nightly. of 00 Medicin e olanzapine Yes [id number] 5mg Take 1 Tab [facility] (ZYPREXA) 5 3-27 by mouth Gema ege MG tablet 00:00: nightly. of 00 Medicin e atorvastati 2016-03 Yes [id number] TAKE 1 [facility] n (LIPITOR) 2-11 TABLET BY Col lege 20 MG 00:00: MOUTH of tablet 00 EVERY Medicin NIGHT AT e BEDTIME atorvastati 2016-03 Yes [id number] 20mg Take 20 mg [facility] n (LIPITOR) 2-11 by mouth Gema ege 20 MG 00:00: daily. of tablet 00 Medicin e TENS UNIT 2016-03 Yes [id number] Use TENS Univers ELECTRODES 1-22 unit at ity of (TENS UNITS 00:00: least 2 [place] as ELECTRODES) 00 times a Medic al 2X2 " Pads day as Branch needed for pain. TENS UNIT 2016-03 Yes [id number] Use TENS Univers ELECTRODES 1-22 unit at ity of (TENS UNITS 00:00: least 2 [place] as ELECTRODES) 00 times a Medic al 2X2 " Pads day as Branch needed for pain. TENS UNIT 2016-03 Yes [id number] Use TENS Univers ELECTRODES 1-22 unit at ity of (TENS UNITS 00:00: least 2 [place] as ELECTRODES) 00 times a Medic al 2X2 " Pads day as Branch needed for pain. TENS UNIT 2016-03 Yes [id number] Use TENS Univers ELECTRODES 1-22 unit at ity of (TENS UNITS 00:00: least 2 [place] as ELECTRODES) 00 times a Medic al 2X2 " Pads day as Branch needed for pain. TENS UNIT 2016-03 Yes [id number] Use TENS Univers ELECTRODES 1-22 unit at ity of (TENS UNITS 00:00: least 2 [place] as ELECTRODES) 00 times a Medic al 2X2 " Pads day as Branch needed for pain. TENS UNIT 2016-03 Yes [id number] Use TENS Univers ELECTRODES 1-22 unit at ity of (TENS UNITS 00:00: least 2 [place] as ELECTRODES) 00 times a Medic al 2X2 " Pads day as Branch needed for pain. TENS UNIT 2016-03 Yes [id number] Use TENS [facility] ELECTRODES 1-22 unit at ity of (TENS UNITS 00:00: least 2 [place] as ELECTRODES) 00 times a Medic al 2X2 " Pads day as Branch needed for pain. TENS UNIT 2016-03 Yes [id number] Use TENS [facility] ELECTRODES 1-22 unit at ity of (TENS UNITS 00:00: least 2 [place] as ELECTRODES) 00 times a Medic al 2X2 " Pads day as Branch needed for pain. TENS UNIT 2016-03 Yes [id number] Use TENS Univers ELECTRODES 1-22 unit at ity of (TENS UNITS 00:00: least 2 [place] as ELECTRODES) 00 times a Medic al 2X2 " Pads day as Branch needed for pain. TENS UNIT 2016-03 Yes [id number] Use TENS Univers ELECTRODES 1-22 unit at ity of (TENS UNITS 00:00: least 2 [place] as ELECTRODES) 00 times a Medic al 2X2 " Pads day as Branch needed for pain. TENS UNIT 2016-03 Yes [id number] Use TENS Univers ELECTRODES 1-22 unit at ity of (TENS UNITS 00:00: least 2 [place] as ELECTRODES) 00 times a Medic al 2X2 " Pads day as Branch needed for pain. TENS UNIT 2016-03 Yes [id number] Use TENS [facility] ELECTRODES 1-22 unit at ity of (TENS UNITS 00:00: least 2 [place] as ELECTRODES) 00 times a Medic al 2X2 " Pads day as Branch needed for pain. TENS UNIT 2016-03 Yes [id number] Use TENS Univers ELECTRODES 1-22 unit at ity of (TENS UNITS 00:00: least 2 [place] as ELECTRODES) 00 times a Medic al 2X2 " Pads day as Branch needed for pain. TENS UNIT 2016-03 Yes [id number] Use TENS Univers ELECTRODES 1-22 unit at ity of (TENS UNITS 00:00: least 2 [place] as ELECTRODES) 00 times a Medic al 2X2 " Pads day as Branch needed for pain. TENS UNIT 2016-03 Yes [id number] Use TENS Univers ELECTRODES 1-22 unit at ity of (TENS UNITS 00:00: least 2 [place] as ELECTRODES) 00 times a Medic al 2X2 " Pads day as Branch needed for pain. TENS UNIT 2016-03 Yes [id number] Use TENS Univers ELECTRODES 1-22 unit at ity of (TENS UNITS 00:00: least 2 [place] as ELECTRODES) 00 times a Medic al 2X2 " Pads day as Branch needed for pain. TENS UNIT 2016-03 Yes [id number] Use TENS Univers ELECTRODES 1-22 unit at ity of (TENS UNITS 00:00: least 2 [place] as ELECTRODES) 00 times a Medic al 2X2 " Pads day as Branch needed for pain. TENS UNIT 2016-03 Yes [id number] Use TENS Univers ELECTRODES 1-22 unit at ity of (TENS UNITS 00:00: least 2 [place] as ELECTRODES) 00 times a Medic al 2X2 " Pads day as Branch needed for pain. TENS UNIT 2016-03 Yes [id number] Use TENS Univers ELECTRODES 1-22 unit at ity of (TENS UNITS 00:00: least 2 [place] as ELECTRODES) 00 times a Medic al 2X2 " Pads day as Branch needed for pain. TENS UNIT 2016-03 Yes [id number] Use TENS Univers ELECTRODES 1-22 unit at ity of (TENS UNITS 00:00: least 2 [place] as ELECTRODES) 00 times a Medic al 2X2 " Pads day as Branch needed for pain. TENS UNIT 2016-03 Yes [id number] Use TENS Univers ELECTRODES 1-22 unit at ity of (TENS UNITS 00:00: least 2 [place] as ELECTRODES) 00 times a Medic al 2X2 " Pads day as Branch needed for pain. TENS UNIT 2016-03 Yes [id number] Use TENS Univers ELECTRODES 1-22 unit at ity of (TENS UNITS 00:00: least 2 [place] as ELECTRODES) 00 times a Medic al 2X2 " Pads day as Branch needed for pain. TENS UNIT 2016-03 Yes [id number] Use TENS Univers ELECTRODES 1-22 unit at ity of (TENS UNITS 00:00: least 2 [place] as ELECTRODES) 00 times a Medic al 2X2 " Pads day as Branch needed for pain. TENS UNIT 2016-03 Yes [id number] Use TENS [facility] ELECTRODES 1-22 unit at ity of (TENS UNITS 00:00: least 2 [place] as ELECTRODES) 00 times a Medic al 2X2 " Pads day as Branch needed for pain. TENS UNIT 2016-03 Yes [id number] Use TENS [facility] ELECTRODES 1-22 unit at ity of (TENS UNITS 00:00: least 2 [place] as ELECTRODES) 00 times a Medic al 2X2 " Pads day as Branch needed for pain. TENS UNIT 2016-03 Yes [id number] Use TENS [facility] ELECTRODES 1-22 unit at ity of (TENS UNITS 00:00: least 2 [place] as ELECTRODES) 00 times a Medic al 2X2 " Pads day as Branch needed for pain. TENS UNIT 2016-03 Yes [id number] Use TENS [facility] ELECTRODES 1-22 unit at ity of (TENS UNITS 00:00: least 2 [place] as ELECTRODES) 00 times a Medic al 2X2 " Pads day as Branch needed for pain. TENS UNIT 2016-03 Yes [id number] Use TENS [facility] ELECTRODES 1-22 unit at ity of (TENS UNITS 00:00: least 2 [place] as ELECTRODES) 00 times a Medic al 2X2 " Pads day as Branch needed for pain. TENS UNIT 2016-03 Yes [id number] Use TENS [facility] ELECTRODES 1-22 unit at ity of (TENS UNITS 00:00: least 2 [place] as ELECTRODES) 00 times a Medic al 2X2 " Pads day as Branch needed for pain. TENS UNIT 2016-03 Yes [id number] Use TENS [facility] ELECTRODES 1-22 unit at ity of (TENS UNITS 00:00: least 2 [place] as ELECTRODES) 00 times a Medic al 2X2 " Pads day as Branch needed for pain. TENS UNIT 2016- Yes [id number] Use TENS [facility] ELECTRODES 1-22 unit at ity of (TENS UNITS 00:00: least 2 [place] as ELECTRODES) 00 times a Medic al 2X2 " Pads day as Branch needed for pain. TENS UNIT 2016-03 Yes [id number] Use TENS [facility] ELECTRODES 1-22 unit at ity of (TENS UNITS 00:00: least 2 [place] as ELECTRODES) 00 times a Medic al 2X2 " Pads day as Branch needed for pain. TENS UNIT 2016-03 Yes [id number] Use TENS [facility] ELECTRODES 1-22 unit at ity of (TENS UNITS 00:00: least 2 [place] as ELECTRODES) 00 times a Medic al 2X2 " Pads day as Branch needed for pain. TENS UNIT 2016-03 Yes [id number] Use TENS [facility] ELECTRODES 1-22 unit at ity of (TENS UNITS 00:00: least 2 [place] as ELECTRODES) 00 times a Medic al 2X2 " Pads day as Branch needed for pain. TENS UNIT 2016-03 Yes [id number] Use TENS [facility] ELECTRODES 1-22 unit at ity of (TENS UNITS 00:00: least 2 [place] as ELECTRODES) 00 times a Medic al 2X2 " Pads day as Branch needed for pain. TENS UNIT 2016-03 Yes [id number] Use TENS [facility] ELECTRODES 1-22 unit at ity of (TENS UNITS 00:00: least 2 [place] as ELECTRODES) 00 times a Medic al 2X2 " Pads day as Branch needed for pain. TENS UNIT 2016-03 Yes [id number] Use TENS [facility] ELECTRODES 1-22 unit at ity of (TENS UNITS 00:00: least 2 [place] as ELECTRODES) 00 times a Medic al 2X2 " Pads day as Branch needed for pain. TENS UNIT 2016- Yes [id number] Use TENS [facility] ELECTRODES 1-22 unit at ity of (TENS UNITS 00:00: least 2 [place] as ELECTRODES) 00 times a Medic al 2X2 " Pads day as Branch needed for pain. TENS UNIT 2016- Yes [id number] Use TENS [facility] ELECTRODES 1-22 unit at ity of (TENS UNITS 00:00: least 2 [place] as ELECTRODES) 00 times a Medic al 2X2 " Pads day as Branch needed for pain. TENS UNIT 2016-03 Yes [id number] Use TENS [facility] ELECTRODES 1-22 unit at ity of (TENS UNITS 00:00: least 2 [place] as ELECTRODES) 00 times a Medic al 2X2 " Pads day as Branch needed for pain. TENS UNIT 2016-03 Yes [id number] Use TENS [facility] ELECTRODES 1-22 unit at ity of (TENS UNITS 00:00: least 2 [place] as ELECTRODES) 00 times a Medic al 2X2 " Pads day as Branch needed for pain. TENS UNIT 2016-03 Yes [id number] Use TENS [facility] ELECTRODES 1-22 unit at ity of (TENS UNITS 00:00: least 2 [place] as ELECTRODES) 00 times a Medic al 2X2 " Pads day as Branch needed for pain. TENS UNIT 2016-03 Yes [id number] Use TENS [facility] ELECTRODES 1-22 unit at ity of (TENS UNITS 00:00: least 2 [place] as ELECTRODES) 00 times a Medic al 2X2 " Pads day as Branch needed for pain. TENS UNIT 2016-03 Yes [id number] Use TENS [facility] ELECTRODES 1-22 unit at ity of (TENS UNITS 00:00: least 2 [place] as ELECTRODES) 00 times a Medic al 2X2 " Pads day as Branch needed for pain. TENS UNIT 2016-03 Yes [id number] Use TENS [facility] ELECTRODES 1-22 unit at ity of (TENS UNITS 00:00: least 2 [place] as ELECTRODES) 00 times a Medic al 2X2 " Pads day as Branch needed for pain. TENS UNIT 2016-03 Yes [id number] Use TENS [facility] ELECTRODES 1-22 unit at ity of (TENS UNITS 00:00: least 2 [place] as ELECTRODES) 00 times a Medic al 2X2 " Pads day as Branch needed for pain. TENS UNIT 2016-03 Yes [id number] Use TENS [facility] ELECTRODES 1-22 unit at ity of (TENS UNITS 00:00: least 2 [place] as ELECTRODES) 00 times a Medic al 2X2 " Pads day as Branch needed for pain. TENS UNIT 2016-03 Yes [id number] Use TENS [facility] ELECTRODES 1-22 unit at ity of (TENS UNITS 00:00: least 2 [place] as ELECTRODES) 00 times a Medic al 2X2 " Pads day as Branch needed for pain. TENS UNIT 2016-03 Yes [id number] Use TENS [facility] ELECTRODES 1-22 unit at ity of (TENS UNITS 00:00: least 2 [place] as ELECTRODES) 00 times a Medic al 2X2 " Pads day as Branch needed for pain. TENS UNIT 2016-03 Yes [id number] Use TENS [facility] ELECTRODES 1-22 unit at ity of (TENS UNITS 00:00: least 2 [place] as ELECTRODES) 00 times a Medic al 2X2 " Pads day as Branch needed for pain. TENS UNIT 2016-03 Yes [id number] Use TENS [facility] ELECTRODES 1-22 unit at ity of (TENS UNITS 00:00: least 2 [place] as ELECTRODES) 00 times a Medic al 2X2 " Pads day as Branch needed for pain. TENS UNIT 2016-03 Yes [id number] Use TENS [facility] ELECTRODES 1-22 unit at ity of (TENS UNITS 00:00: least 2 [place] as ELECTRODES) 00 times a Medic al 2X2 " Pads day as Branch needed for pain. TENS UNIT 2016-03 Yes [id number] Use TENS [facility] ELECTRODES 1-22 unit at ity of (TENS UNITS 00:00: least 2 [place] as ELECTRODES) 00 times a Medic al 2X2 " Pads day as Branch needed for pain. TENS UNIT 2016-03 Yes [id number] Use TENS [facility] ELECTRODES 1-22 unit at ity of (TENS UNITS 00:00: least 2 [place] as ELECTRODES) 00 times a Medic al 2X2 " Pads day as Branch needed for pain. TENS UNIT 2016-03 Yes [id number] Use TENS [facility] ELECTRODES 1-22 unit at ity of (TENS UNITS 00:00: least 2 [place] as ELECTRODES) 00 times a Medic al 2X2 " Pads day as Branch needed for pain. TENS UNIT 2016-03 Yes [id number] Use TENS [facility] ELECTRODES 1-22 unit at ity of (TENS UNITS 00:00: least 2 [place] as ELECTRODES) 00 times a Medic al 2X2 " Pads day as Branch needed for pain. TENS UNIT 2016-03 Yes [id number] Use TENS [facility] ELECTRODES 1-22 unit at ity of (TENS UNITS 00:00: least 2 [place] as ELECTRODES) 00 times a Medic al 2X2 " Pads day as Branch needed for pain. TENS UNIT 2016-03 Yes [id number] Use TENS [facility] ELECTRODES 1-22 unit at ity of (TENS UNITS 00:00: least 2 [place] as ELECTRODES) 00 times a Medic al 2X2 " Pads day as Branch needed for pain. TENS UNIT 2016-03 Yes [id number] Use TENS [facility] ELECTRODES 1-22 unit at ity of (TENS UNITS 00:00: least 2 [place] as ELECTRODES) 00 times a Medic al 2X2 " Pads day as Branch needed for pain. TENS UNIT 2016-03 Yes [id number] Use TENS [facility] ELECTRODES 1-22 unit at ity of (TENS UNITS 00:00: least 2 [place] as ELECTRODES) 00 times a Medic al 2X2 " Pads day as Branch needed for pain. TENS UNIT 2016-03 Yes [id number] Use TENS [facility] ELECTRODES 1-22 unit at ity of (TENS UNITS 00:00: least 2 [place] as ELECTRODES) 00 times a Medic al 2X2 " Pads day as Branch needed for pain. TENS UNIT 2016-03 Yes [id number] Use TENS [facility] ELECTRODES 1-22 unit at ity of (TENS UNITS 00:00: least 2 [place] as ELECTRODES) 00 times a Medic al 2X2 " Pads day as Branch needed for pain. TENS UNIT 2016-03 Yes [id number] Use TENS [facility] ELECTRODES 1-22 unit at ity of (TENS UNITS 00:00: least 2 [place] as ELECTRODES) 00 times a Medic al 2X2 " Pads day as Branch needed for pain. TENS UNIT 2016-03 Yes [id number] Use TENS [facility] ELECTRODES 1-22 unit at ity of (TENS UNITS 00:00: least 2 [place] as ELECTRODES) 00 times a Medic al 2X2 " Pads day as Branch needed for pain. TENS UNIT 2016-03 Yes [id number] Use TENS [facility] ELECTRODES 1-22 unit at ity of (TENS UNITS 00:00: least 2 [place] as ELECTRODES) 00 times a Medic al 2X2 " Pads day as Branch needed for pain. TENS UNIT 2016-03 Yes [id number] Use TENS [facility] ELECTRODES 1-22 unit at ity of (TENS UNITS 00:00: least 2 [place] as ELECTRODES) 00 times a Medic al 2X2 " Pads day as Branch needed for pain. TENS UNIT 2016- Yes [id number] Use TENS [facility] ELECTRODES 1-22 unit at ity of (TENS UNITS 00:00: least 2 [place] as ELECTRODES) 00 times a Medic al 2X2 " Pads day as Branch needed for pain. TENS UNIT 2016-03 Yes [id number] Use TENS [facility] ELECTRODES 1-22 unit at ity of (TENS UNITS 00:00: least 2 [place] as ELECTRODES) 00 times a Medic al 2X2 " Pads day as Branch needed for pain. TENS UNIT 2016-03 Yes [id number] Use TENS [facility] ELECTRODES 1-22 unit at ity of (TENS UNITS 00:00: least 2 [place] as ELECTRODES) 00 times a Medic al 2X2 " Pads day as Branch needed for pain. TENS UNIT 2016-03 Yes [id number] Use TENS [facility] ELECTRODES 1-22 unit at ity of (TENS UNITS 00:00: least 2 [place] as ELECTRODES) 00 times a Medic al 2X2 " Pads day as Branch needed for pain. atorvastati 2016-03 No Notes: [place] n 0- (Same As: l 02:00: Lipitor) Metformin 2016-03 [...] 12-16 Route: IM, l 10:01: Drug form: Demar 00 PDR/INJ, PRN, Dosing Weight 63.636, kg, PRN [...] PO, l 1.33 MEQ/ML 03:34: Drug form: [place] Oral LIQ, ONCE, Solution Dosing Weight 63.636, kg, Priority: STAT, Start date: 12/15/16 22:34:00 CDT, Stop date: 12/15/16 22:34:00 CDT Tylenol No 1,000 mg, Memor ia 12-16 Route: PO, l 02:28: ONCE, [place] Dosing Weight 63.636, kg, Start date: 12/15/16 21:28:00 CDT, Stop date: 12/15/16 21:28:00 CDT metformin Yes [id number] 500mg Take 500 [facility] (GLUCOPHAGE 9-08 mg by [employer] -XR) 500 MG 00:00: mouth. of XR tablet 00 Medicin e metformin Yes [id number] 500mg Take 500 [facility] (GLUCOPHAGE 9-08 mg by College -XR) 500 MG 00:00: mouth. of XR tablet 00 Medicin e metformin Yes [id number] 500mg Take 1 [facility] ER 500 mg 9-08 tablet by ity o f 24 hr 00:00: mouth [place] tablet 00 daily with Medical breakfast. [place] metformin Yes [id number] 500mg Take 1 [facility] ER 500 mg 9-08 tablet by ity o f 24 hr 00:00: mouth [place] tablet 00 daily with Medical breakfast. Branch metformin Yes [id number] 500mg Take 1 [facility] ER 500 mg 9-08 tablet by ity o f 24 hr 00:00: mouth [place] tablet 00 daily with Medical breakfast. Branch metformin Yes [id number] 500mg Take 1 [facility] ER 500 mg 9-08 tablet by ity o f 24 hr 00:00: mouth [place] tablet 00 daily with Medical breakfast. Branch metformin Yes [id number] 500mg Take 1 [facility] ER 500 mg 9-08 tablet by ity o f 24 hr 00:00: mouth [place] tablet 00 daily with Medical breakfast. [place] metformin Yes [id number] 500mg Take 1 [facility] ER 500 mg 9-08 tablet by ity o f 24 hr 00:00: mouth [place] tablet 00 daily with Medical breakfast. [place] metformin Yes [id number] 500mg Take 1 [facility] ER 500 mg 9-08 tablet by ity o f 24 hr 00:00: mouth [place] tablet 00 daily with Medical breakfast. [place] metformin Yes [id number] 500mg Take 1 [facility] ER 500 mg 9-08 tablet by ity o f 24 hr 00:00: mouth [place] tablet 00 daily with Medical breakfast. [place] metformin Yes [id number] 500mg Take 1 [facility] ER 500 mg 9-08 tablet by ity o f 24 hr 00:00: mouth [place] tablet 00 daily with Medical breakfast. Branch metformin Yes [id number] 500mg Take 1 [facility] ER 500 mg 9-08 tablet by ity o f 24 hr 00:00: mouth [place] tablet 00 daily with Medical breakfast. [place] metformin Yes [id number] 500mg Take 1 [facility] ER 500 mg 9-08 tablet by ity o f 24 hr 00:00: mouth [place] tablet 00 daily with Medical breakfast. [place] metformin 2017-0 Yes [id number] 500mg Take 1 [facility] ER 500 mg 9-08 tablet by ity o f 24 hr 00:00: mouth [place] tablet 00 daily with Medical breakfast. [place] metformin Yes [id number] 500mg Take 1 [facility] ER 500 mg 9-08 tablet by ity o f 24 hr 00:00: mouth [place] tablet 00 daily with Medical breakfast. [place] metformin Yes [id number] 500mg Take 1 [facility] ER 500 mg 9-08 tablet by ity o f 24 hr 00:00: mouth [place] tablet 00 daily with Medical breakfast. [place] metformin 2020- No [id number] 500mg Take 1 [facility] ER 500 mg 11-24- tablet by ity of 24 hr 00:00: 00:00 mouth [place] tablet 00 :00 daily with Medical breakfast. [place] metformin 2019- No [id number] 500mg Take 1 [facility] ER 500 mg 11-24 tablet by ity of 24 hr 00:00: 00:00 mouth [place] tablet 00 :00 daily with Medical breakfast. [place] sertraline Yes 100 mg = 2 M emoria 50 mg oral 4-25 tab, PO, l tablet 14:06: Daily, 0 [place] 00 Refill(s) lactobacill Yes 1 tab, PO, Memoria us 4-25 Daily, 0 l acidophilus 14:06: Refill(s) H [place] 00 Glipizide 5 Yes 5 mg = 1 Me moria MG Oral 4-25 tab, PO, l Tablet 14:06: Q5PM, 0 [place] 00 Refill(s) Baclofen Yes 317.8 mcg, Mem oria 4-25 INTRATHECA l 14:06: L, Demar 00 Continuous , PRN Other -See Comment, [...] 1 Mem oria 10 mg 4-25 supp, IA, l rectal 14:06: Bedtime, Demar suppository 00 PRN Constipati on, 0 Refill(s) [...] tablet 14:06: Daily, 0 Demar 00 Refill(s) Nystatin Yes 1 appl, Memori a [id number] 4-25 TOP, l UNT/ML 14:06: QSHIFT, 0 Mauricio n Topical 00 Refill(s) Cream modafinil Yes 100 mg = 1 Me moria 100 mg oral 4-25 tab, PO, l tablet 14:06: BID-12, Chiquita nn 00 0 Refill(s) Metformin Yes PO, BID, 0 Me moria hydrochlori 4-25 Refill(s) l de 1000 MG 14:06: Demar Oral Tablet 00 melatonin 3 Yes 6 mg, PO, M emoria mg oral 4-25 Bedtime, 0 l tablet 14:06: Refill(s) Mauricio n 00 Glipizide No Notes: Memori a 4-21 (Same as: l 22:00: Glucotrol) [place] 00 30 min before meals. lactobacill No Notes: [place] us 4-21 High l acidophilus 13:30: Potency Her adams 00 Chewable lactobabac illus acidophilu s 1 billion bacteria/t ablet lidocaine No Notes: Memori a 1% 4-20 (Same as: l preservativ 22:11: Xylocaine) Demar e-free 00 injectable solution triamcinolo No Notes: [...] 4-20 (Same as: l 0.05 02:00: Flonase) Demar MG/ACTUAT 00 Metered Dose Nasal [place] [Flonase] Amoxicillin No Notes: [place] 875 MG / 4-19 With food. l Clavulanate 18:00: (Same as: H ermann 125 MG Oral 00 Augmentin Tablet 875) [Augmentin 875-mg] Oxymetazoli No Notes: [place] ne 4-19 (Same as: l hydrochlori 14:12: Afrin) Herm shelton de 0.5 00 MG/ML Nasal [place] [Afrin] Zyrtec No Notes: Memoria 4-19 (Same As: l 02:00: Zyrtec) [place] 00 Nasal Moist No Notes: [place] 0.65% 4-18 (Same as: l solution 14:00: [place], [place] 00 Deep Sea Nasal [place]). Nasal Mist No 2 spray, Mem oria 0.05% nasal 4-18 Route: l spray 02:00: NASAL, Demar 00 Dosing Weight 120.455, kg, BID, Start date: 07/03/16 21:00:00 CDT, Duration: 30 day, Stop date: 08/02/16 8:30:00 CDT Nasal Moist No Notes: [place] 0.65% 4-17 (Same as: l solution 19:00: [place], [place] Deep Sea Nasal [place]). Metformin No Notes: Memori a 4-17 (Same as: l 13:00: Glucophage Demar 00 ) Take with meal guaiFENesin No Notes: [place] liquid 100 4-16 (Same as: l mg/ 5 mL 23:00: Robitussin Her adams ) Tylenol No Notes: Do Memor ia 4-13 not exceed l 18:22: 4 gm/day. [place] (Same as: Tylenol) Adderall No Notes: Memoria 4-13 Non-Formul l 11:30: daryl drug. Dextroamph etamine and Amphetamin e derivative s. (Same as: Adderall) Aricept No Notes: Memoria 4-13 (Same as: l 02:00: Aricept) Propranolol No Notes: [place] 4-11 Give with l 02:00: food. [place] 00 (Same as: Inderal) Metformin No Notes: Memori a 4-10 (Same as: l 22:00: Glucophage Demar 00 ) Take with meal Albuterol No Notes: Memori a 0.833 MG/ML 4-10 (Same as: l / 15:32: Duoneb) [place] Ipratropium 00 [place] 0.167 MG/ML Inhalant Solution [DuoNeb] Acetaminoph No Notes: Max Memoria en 4-07 acetaminop l 17:00: hen 4000 [place] 00 mg/day (4 gm/day). (Same as: Tylenol Extra Strength) Flomax No Notes: Memoria 4-07 (Same As: l 13:30: Flomax) "Do Not Crush" Albuterol No Notes: Memori a 0.833 MG/ML 4-07 (Same as: l / 00:30: Duoneb) Demar Ipratropium 00 [place] 0.167 MG/ML Inhalant Solution magnesium No Notes: Memori a citrate -06 (Same as: l 58.2 MG/ML 19:03: Citrate of H ermann Oral 00 Magnesia) Solution Concentrat ion: 1.745 gm / 30 mL sennosides, No Notes: [place] HALF-WAY 06 (Same as: l 13:30: Senokot) Demar Nystatin No Notes: Memoria [id number] 06 (Same l UNT/ML 06:00: as:Mycosta Chiquita nn Topical 00 tin Cream Nilstat) for external use only. Biofreeze No 1 appl, Memor ia 06-22 Route: l 02:00: TOP, TID, Demar Start date: 06/21/16 21:00:00 CDT, Duration: 30 day, Stop date: 07/21/16 13:00:00 CDT Docusate No Notes: Memoria Sodium 100 -06 (Same as: l MG Oral 02:00: Colace) [place] Capsule 00 (Do Not [Colace] Crush) atorvastati No Notes: [place] n -06 (Same As: l 02:00: Lipitor) Demar 00 Propranolol No Notes: [place] 4-06 Give with l 02:00: food. Demar 00 (Same as: Inderal) Insulin, No Notes: Memoria Aspart, -05 Roll in l Human 22:13: palms of Demar 00 hands gently; Do not shake vigorously [...] 17:12:00 CDT Glucagon No 1 mg, Memoria 4-05 Route: IM, l 22:13: Drug form: [place] 00 PDR/INJ, PRN, Dosing Weight 120.591, kg, PRN Blood Glucose Results, Start date: 06/21/16 17:13:00 CDT, Duration: 60 day, Stop date: 08/20/16 17:12:00 CDT Glucagon No 1 mg, Memoria 4-05 Route: IM, l 17:57: Drug form: Demar PDR/INJ, PRN, Dosing Weight 120.591, kg, PRN [...] Notes: Memoria 4-05 (Same l 17:00: as:Provigi Demar 00 l) Milk of No Notes: Memoria Magnesia 4-05 (Same as: l 15:55: Milk of [place], MOM) Sertraline No Notes: Memor ia 4-05 (Same as: l 13:30: Zoloft) Demar gabapentin No Notes: Memor ia 300 MG Oral -05 (Same as: l Capsule 02:00: Neurontin) Herm shelton 00 Propranolol No Notes: [place] 4-05 Take with l 02:00: food. Do not crush or chew. (Same as: Inderal [place]) Melatonin 3 No Notes: [place] MG Extended 05 (Same as: l Release 02:00: Melatonin) Herm shelton Tablet 00 Enoxaparin No 40 mg, Memor ia 4-04 Route: l 23:00: SUB-Q, Demar Drug form: INJ, [id number], Dosing Weight 120.591, kg, Start date: 06/20/16 18:00:00 CDT, Duration: 30 day, Stop date: 07/19/16 18:00:00 CDT saliva No Notes: Memoria substitutes 06-20 Same as l 22:35: Biotene Demar 00 Oral Balance Ambien No Notes: Memoria - (Same As: l 22:32: Ambien) [place] 00 Baclofen No Notes: For Mem oria 06-20 INTRATHECA l 22:30: L use Demar 00 only. Preservati ve free. (Same As: Jovanni Gablofen). tramadol No Notes: Not Mem oria hydrochlori 06-20 to exceed l de 50 MG 22:30: 400mg/day. Her adams Oral Tablet 00 (Same As: Ultram) Levetiracet No Notes: [place] am 06-20 Same as l 22:17: Keppra Mix [place] 00 with 100 mL NS, LR or D5W MEDICATION WASTE Product Size: 500 mg Product Wasted: ___ mg Midazolam No 40 kg Memori a -04 l 22:17: [place] 00 Melatonin No Notes: Memori a 06-20 (Same as: l 22:17: Melatonin) [place] 00 Acetaminoph No Notes: Max Memoria en 06-20 acetaminop l 22:17: hen 4000 Demar 00 mg/day (4 gm/day). (Same as: Tylenol Extra Strength) Saline No Notes: Memoria Flush 0.9% 06-20 (Same as: l 22:17: BD [place] 00 Posiflush) Bisacodyl No Notes: Memori a 06-20 (Same As: l 22:17: Dulcolax, Demar Bisco-Lax) tramadol Yes 50 mg = 1 [...] Yes 12.5 mg = M emoria e 07 1 tab, PO, l Hydrochlori 23:23: Q6H, PRN He rmann de 12.5 MG 00 Nausea & Oral Tablet Vomiting, [Phenergan] X 7 day, # 28 tab, 0 Refill(s), Pharmacy: [facility] [id number] Phenergan No Notes: Do Mem oria 04-25 not give l 21:29: IV push. Demar 00 (Same as: Phenergan) Acetaminoph No Notes: [place] en 325 MG / 04-25 (Same as: l Hydrocodone 21:29: [place] Chiquita nn Bitartrate 00 325/5) Do 5 MG Oral not exceed Tablet 4gm/day of [[place] acetaminop 5/325] hen. Acetaminoph Yes 1 - 2 tab, Memoria en 300 MG / 1-14 PO, Q6H, l Codeine 03:25: PRN Pain, Chiquita nn Phosphate 00 X 4 day, # 60 MG Oral 32 tab, 0 Tablet Refill(s) [Tylenol with Codeine #4] Acetaminoph Yes Notes: Do M emoria en 325 MG / 1-14 not exceed l Hydrocodone 03:24: 4gm/day of Demar Bitartrate 00 acetaminop 10 MG Oral hen. (Same Tablet as: [place] [[place] 325/10) 10/325] Ketamine Yes 100 mg, 10 Mem oria 1-14 mL, Route: l 00:19: IVP, Drug form: INJ, ONCE, Dosing Weight 115.455, kg, Priority: STAT, Start date: 03/31/16 18:19:00 CLINIC OFFICE ASSISTANT, Stop date: 01/13/17 18:19:00 CLINIC OFFICE ASSISTANT Propofol Yes Notes: If [place] 1-14 Diprivan - l 00:19: change Deamr 00 bottle & tubing every 12 hr Per state nursing law propofol can only be given by a nurse if patient is intubated or being intubated (unless the nurse is a MANAGING DIRECTOR ATLAS). Same as: Diprivan Morphine No Notes: Memoria -13 (Same l 23:43: as:MORPhin [place] 00 e Sulfate) Zofran No Notes: Memoria - (Same as: l 23:43: Zofran) Demar 00 [...] Every l Medicated 23:05: Other Day, He rmann Shampoo 00 X 30 day, [Nizoral] # 120 mL, 0 Refill(s) Docusate 2015-03 Yes 100 mg = 1 Mem oria Sodium 100 0-13 cap, PO, l MG Oral 23:05: BID, # 60 Chiquita nn Capsule 00 cap, 0 [Colace] Refill(s) cetirizine 2015-03 Yes 5 mg = 0.5 M emoria 10 mg oral 0-13 tab, PO, l tablet 23:05: Daily, X [place] 00 30 day, # 15 tab, 0 [...] 0-13 S&SPIT, l oral 23:05: Daily, PRN [place] solution 00 Other -See Comment | dry [...] supp, PO, l rectal 23:05: Daily, X [place] suppository 00 30 day, # 30 supp, 0 Refill(s) acetaminoph 2015-03 Yes 100.4 F, M emoria en 325 mg 0-13 X 30 day, l oral tablet 23:05: # 180 tab, [place] 00 0 Refill(s) Bacitracin 2015-03 No 1 appl, [place] 0-10 Route: l 23:00: TOP, Q6H, Demar Drug form: OINT, Start date: 12/27/15 18:00:00 CDT, Duration: 30 day, Stop date: 01/26/16 12:00:00 CLINIC OFFICE ASSISTANT Zyrtec 2015-03 No Notes: Memoria 0-10 (Same As: l 13:30: Zyrtec) [place] 00 Tears 2015-03 No 1 drp, Memoria Naturale 0-09 Route: l 18:00: Each [place] 00 Affected Eye, TID, Drug form: SOLN, Start date: 12/26/15 13:00:00 CDT, Duration: 30 day, Stop date: 01/25/16 8:30:00 CLINIC OFFICE ASSISTANT Ketoconazol 2015-03 No Notes: [place] e 20 MG/ML 0-07 Non-Formul l Medicated 14:00: daryl Drug Herm shelton Shampoo (Same [Nizoral] as:Nizoral Topical) Zoloft 2015-03 No Notes: Memoria 0-06 (Same as: l 02:00: Zoloft) Terbinafine 2015-03 No Notes: [place] hydrochlori 0-03 Same as: l de 10 MG/ML 02:00: LamISIL AT [place] Topical Cream Tylenol No Notes: Do Memor ia 12-14 not exceed l 02:00: 4 gm/day. (Same as: Tylenol) sennosides, No 1 tab, [place] HALF-WAY 12-10 Route: PO, l 17:00: Drug Form: TAB, Dosing Weight 111.364, kg, Lunch, Start date: 12/11/15 12:00:00 CDT, Duration: 60 day, Stop date: 02/08/16 12:00:00 CLINIC OFFICE ASSISTANT Biotene No Notes: Memoria Oral 12-10 Same as: l Balance 12:00: Biotene with Calcium Non-formul daryl metoprolol No Notes: Memor ia tartrate 12-10 (Same as: l 02:00: Lopressor) Mucinex Max No 2 tab, [place] Strength 12-10 Route: PO, l 02:00: Drug Form: ERTAB, Dosing Weight 65.909, kg, BID, Start date: 12/10/15 21:00:00 CDT, Duration: 60 day, Stop date: 02/08/16 8:30:00 CLINIC OFFICE ASSISTANT Docusate No Notes: Memoria Sodium 100 12-10 (Same as: l MG Oral 02:00: Colace) Capsule (Do Not [Colace] Crush) gabapentin No Notes: Memor ia 300 MG Oral 12-10 (Same as: l Capsule 02:00: Neurontin) Zoloft No Notes: Memoria 9-24 (Same as: l 02:00: Zoloft) Trazodone No Notes: Memori a Hydrochlori 12-10 (Same As: l de 50 MG 02:00: Desyrel) Chiquita nn Oral Tablet 00 Pyridium No Notes: Memoria 12-10 Give with l 00:30: meals. [place] 00 (Same as: Pyridium) lidocaine No Notes: Memori a topical 2% 12-10 (Same as: l gel with 00:21: Xylocaine Herm shelton applicator 00 Jelly, Anestacon) baclofen No Notes: For Mem oria 12-09 INTRATHECA l 22:30: L use Demar 00 only. Preservati ve free. (Same As: Lioresal, [place]en). Midazolam No 40 kg Memori a 12-09 l 22:13: Demar Acetaminoph No Notes: Do M emoria en 325 MG / 12-09 not exceed l Hydrocodone 22:13: 4gm/day of Bitartrate 00 acetaminop 10 MG Oral hen. (Same Tablet as: [place] [[place] 325/10) 10/325] Dulcolax No Notes: Memoria Laxative 12-09 (Same [...] Memor ia 12-09 Start l 22:13: date: [place] 00 12/10/15 17:13:00 CDT, Duration: 60 day, Stop date: 02/08/16 17:12:00 CLINIC OFFICE ASSISTANT Trazodone No 25 mg, Memori a 12-09 Route: PO, l 22:13: Drug form: Demar 00 TAB, Bedtime, Dosing Weight 111.364, kg, PRN Insomnia, Start date: 12/10/15 17:13:00 CDT, Duration: 60 day, Stop date: 02/08/16 17:12:00 CLINIC OFFICE ASSISTANT Pyridium No Notes: Memoria - Give with l 17:00: meals. Demar 00 (Same as: Pyridium) Phenazopyri Yes 100 mg, Mem oria dine 12-09 PO, l hydrochlori 14:49: TID-After H ermann de 100 MG 00 Meals, PRN Oral Tablet urethral [Pyridium] pain, 0 Refill(s) gabapentin No Notes: Memor ia 300 MG Oral 12-09 (Same as: l Capsule 14:00: Neurontin) influenza No Notes: Memori a virus 12-09 [...] 0.9% 12-09 (Same as: l 02:00: BD Posiflush) Docusate No Notes: Memoria 12-09 (Same as: l 02:00: Colace) (Do Not Crush) sennosides, No Notes: [place] HALF-WAY 12-09 (Same as: l 02:00: Senokot) Dilaudid No Notes: Memoria 12-09 (Same as: l 00:17: Dilaudid) ceFAZolin No Notes: Memori a (SCIP) + 12-08 (Same As: l sodium 23:00: Ancef, Demar chloride 00 Kefzol) 0.9% INJ Cefazolin 100 mL FOR IV SET ONLY MEDICATION WASTE Product Size: 1000 mg Product Wasted: _0__ mg Morphine No Notes: Memoria 12-08 (Same l 16:52: as:MORPhin [place] 00 e Sulfate) Acetaminoph No Notes: Max [...] / 12-08 (Same as: l Hydrocodone 16:23: Harriman Chiquita nn Bitartrate 00 325/5) Do 5 MG Oral not exceed Tablet 4gm/day of acetaminop hen. Morphine No Notes: Memoria 12-08 (Same l 16:23: as:MORPhin [place] 00 e Sulfate) ceFAZolin No 3 gm, Memoria (SCIP) 12-08 Route: l 14:26: IVP, Drug [place] 00 form: INJ, ONCE, Dosing Weight 111.364, kg, [...] moria 12-07 Bedtime, 0 l 16:13: Refill(s) [place] 00 midazolam 5 Yes IM, ONCE, M [...] tab, PO, l tablet 16:04: Lunch, # [place] 00 100 tab, 0 Refill(s) Biotene Yes Daily, 0 Memori a Mouthwash 12-07 Refill(s) l oral 16:03: [place] solution 00 metoprolol Yes 50 mg = 1 Me moria 50 mg oral 12-07 tab, PO, l tablet, 15:48: BID, 0 Demar extended 00 Refill(s) release Zofran No Notes: Memoria 12-06 (Same as: l 16:31: Zofran) Biotene No Notes: Memoria Oral 12-05 Same as: l Balance 12:00: Biotene with Calcium Non-formul daryl sennosides, No Notes: [place] HALF-WAY 12-03 (Same as: l 17:00: Senokot) Trazodone No Notes: Memori a 11-25 (Same As: l 18:54: Desyrel) Botulinum No Notes: "TO Me moria Toxin Type 11-25 BE l A 17:00: RECONSTITU YANELY AND ADMINISTER ED ONLY BY A PHYSICIAN" Reconstitu te with preservati ve free NS only. Stability = 4 hours after reconstitu tion. (Same As: Botox) WASTE: F/P - Red; E -Red Trazodone No Notes: Memori a Hydrochlori 11-23 (Same As: l de 50 MG 02:00: Desyrel) Chiquita nn Oral Tablet 00 Midazolam No 40 kg Memori a 11-22 l 16:20: Botulinum No Notes: "TO Me moria Toxin [...] Memor ia 11-09 Start l 12:33: date: [place] 00 11/10/15 7:33:00 CDT, Duration: 30 day, Stop date: 12/10/15 7:32:00 CDT Acetaminoph No Route: PO, Memoria en 325 MG / 11-09 Drug Form: l Hydrocodone 05:00: TAB, Mauricio n Bitartrate 00 Dosing 10 MG Oral Weight Tablet 65.909, [Harriman kg, Q6H, 10/325] Start date: 11/10/15 0:00:00 CDT, Duration: 30 day, Stop date: 12/09/15 18:00:00 CDT Lorazepam No Notes: Memori a 11-09 (Same as: l 03:04: Ativan) Levetiracet No Notes: [place] am 11-09 Same as l 03:04: Keppra Mix with 100 mL NS, LR or D5W MEDICATION WASTE Product Size: 500 mg Product Wasted: ___ mg Saline No Notes: Memoria Flush 0.9% 11-09 (Same as: l 03:04: BD Posiflush) Milk of No Notes: Memoria Magnesia 11-09 (Same as: l 03:04: Milk of [place], MOM) Dulcolax No Notes: Memoria Laxative 11-09 (Same As: l 02:27: Dulcolax, [place] Bisco-Lax) Bisacodyl No Notes: Memori a 11-09 (Same As: l 02:05: Dulcolax, [place] 00 Bisco-Lax) Acetaminoph No Notes: Do M emoria en 325 MG / 8-24 not exceed l Hydrocodone 02:02: 4gm/day of Bitartrate acetaminop 10 MG Oral hen. (Same Tablet as: Harriman [Harriman 325/10) 10/325] Docusate No Notes: Memoria Sodium 100 8-24 (Same as: l MG Oral 02:00: Colace) Demar Capsule 00 (Do Not [Colace] Crush) Baclofen No Notes: Memoria 8-24 (Same As: l 02:00: Lioresal) Mucinex Max No Notes: [place] Strength 8-24 (Same as: l 02:00: Guaifenesi Demar 00 n LA, Humibid [place], Mucinex) "Do Not Crush" Take medication with plenty of water. Zoloft No Notes: Memoria 8-24 (Same as: l 02:00: Zoloft) Inderal No Notes: Memoria 8-24 Take with l 02:00: food. Do not crush or chew. (Same as: Inderal [place]) gabapentin No Notes: Memor ia 300 MG Oral 11-09 (Same as: l Capsule 02:00: Neurontin) Lovenox No Notes: Memoria 8-24 (Same as: l 02:00: Lovenox) Tylenol No Notes: Do Memor ia 8 not exceed l 01:54: 4 gm/day. (Same as: Tylenol) Bisacodyl No 10 mg, Memori a 11-09 Route: IA, l 01:53: Drug form: SUPP, PRN, Dosing Weight 65.909, kg, PRN Constipati on, Start date: 11/09/15 20:53:00 CDT, Duration: 30 day, Stop date: 12/09/15 20:52:00 CDT Acetaminoph No 1-2 tab, Me moria en 325 MG / 11-08 PO, Q4-6H, l Hydrocodone 14:41: PRN Pain, H ermann Bitartrate 00 # 30 tab, 10 MG Oral 0 Tablet Refill(s) [Harriman 10/325] tramadol No 50 mg = 1 [place] hydrochlori 8- tab, PO, l de 50 MG 14:41: Q6H, PRN Chiquita nn Oral Tablet 00 Pain, # 40 tab, 0 Refill(s) oxyCODONE 5 No 5 mg = 1 Me moria mg oral 8-23 cap, PO, l capsule 14:41: Q6H, PRN [...] 1 Mem oria 10 mg 11-08 supp, IA, l rectal 14:41: PRN, PRN Demar suppository 00 Constipati on, # 10 supp, 0 Refill(s) gabapentin No 300 mg = 1 M emoria 300 MG Oral 8- cap, PO, l Capsule 22:01: TID, # 90 Chiquita nn 00 cap, 0 Refill(s) baclofen 20 No 20 mg = 1 M emoria mg oral 8-22 tab, PO, l tablet 22:01: TID, # 270 Chiquita nn 00 tab, 0 Refill(s) Sertraline No 50 mg = 1 Me moria 50 MG Oral 8-22 tab, PO, l Tablet 22:01: Bedtime, 0 Chiquita nn [Zoloft] 00 Refill(s) Inderal No 60 mg, PO, [place] 8- Bedtime, # l 22:01: 100 tab, 0 Demar 00 Refill(s) 12 HR No 1,200 mg = Memori a Guaifenesin 8-22 1 tab, PO, l 1200 MG 22:01: BID, 0 Demar Extended 00 Refill(s) Release Tablet [Mucinex] Acetaminoph 2016-0 No 2 tabs, Mem oria en 325 MG / -22 PO, Q4H, 0 l Hydrocodone 22:01: Refill(s) H ermann Bitartrate 00 10 MG Oral Tablet [Harriman 10/325] 0.4 ML No 40 mg, Memoria Enoxaparin 11-07 SUB-Q, l sodium 100 22:01: Q24H, 0 Herm shelton MG/ML 00 Refill(s) Prefilled Syringe [Lovenox] Lovenox No 0 Memoria 11-07 Refill(s) l 22:01: Demar Ondansetron No Notes: [place] 08-19 (Same [...] = 1 M emoria 500 MG Oral 08-19 cap, PO, l Capsule 16:04: QID, X 7 Mauricio n [Keflex] 00 day, # 28 cap, 0 Refill(s) ceFAZolin No 2 gm, Memoria (SCIP) 08-19 Route: l 15:47: IVPB, Drug form: INJ, ONCE, Dosing Weight 111.364, kg, Start date: 08/20/15 10:47:00 CDT, Stop date: 08/20/15 10:47:00 CDT Midazolam No 1 mg, Memoria 16 Route: IV, l 13:33: ONCE, Demar 00 Dosing Weight 125, kg, Start date: 08/02/15 8:33:00 CDT, Stop date: 08/02/15 8:33:00 CDT Omnipaque No 150 mL, Memor ia 350 08-01 Route: l 13:33: INTRAARTER Demar 00 IAL, Dosing Weight 125, kg, ONCE, Start date: 08/02/15 8:33:00 CDT, Stop date: 08/02/15 8:33:00 CDT Acetaminoph No Notes: [place] en 325 MG / 16 (Same as: l Hydrocodone 12:00: Harriman Chiquita nn Bitartrate 00 325/5) Do 5 MG Oral not exceed Tablet 4gm/day of acetaminop hen. Acetaminoph No Notes: Do M emoria en -16 not exceed l 12:00: 4 gm/day. (Same as: Tylenol) Sodium No 1,000 mL, [...] 5-16 Rate: 50 l 0.154 10:00: ml/hr, [place] MEQ/ML 00 Infuse Injectable over: 20 Solution hr, Route: IV, Dosing Weight 113.636 kg, Total Volume: 1,000, Priority: Routine, Start date: 08/02/15 5:00:00 CDT, Duration: 30 day, Stop date: 09/01/15 4:59:00 CDT Dexamethaso No Notes: [place] ne 5-16 Concentrat l 10:00: ion: Demar 00 4mg/ml Ondansetron No Notes: [place] 5-16 (Same as: l 10:00: Zofran) Demar 00 MEDICATION WASTE Product Size: 4 mg Product Wasted: ___ mg Famotidine No 20 mg, 2 Mem oria 5-16 mL, Route: l 10:00: IV, Drug form: INJ, ONCE, Dosing Weight 113.636, kg, Start date: 08/02/15 5:00:00 CDT, Stop date: 08/02/15 5:00:00 CDT Fentanyl No Notes: Memoria 5-16 (Same as: l 10:00: Sublimaze) Demar 00 Preservati ve free. Bupivacaine No Notes: [place] Hydrochlori -16 (bupivacai l de 2.5 10:00: ne-epi [place] MG/ML / 00 0.25%-1:20 Epinephrine 0,000 30 0.005 MG/ML ml VL) Not Injectable for use in Solution continuous infusion. (Same As: Marcaine w/Epi) Bacitracin No Notes: Memor ia 0.5 UNT/MG -16 (Same As: l / Polymyxin 10:00: Polysporin [place] B 10 UNT/MG 00 ) Topical Ointment [Polysporin ] Sodium No 1,000 mL, Memori a Chloride 5-10 Rate: 50 l 0.154 12:00: ml/hr, Demar MEQ/ML 00 Infuse Injectable over: 20 Solution hr, Route: IV, Dosing Weight 113.636 kg, Total Volume: 1,000, Priority: Routine, Start date: 07/27/15 7:00:00 CDT, Duration: 30 day, Stop date: 08/26/15 6:59:00 CDT Acetaminoph 0 No 2 tab, [place] en 325 MG / 5-10 Route: PO, l Hydrocodone 12:00: Drug Form: Demar Bitartrate 00 TAB, 5 MG Oral Dosing Tablet Weight 113.636, kg, Q4H, PRN Pain Score 7-10, Start date: 07/27/15 7:00:00 CDT, Duration: 30 day, Stop date: 08/26/15 6:59:00 CDT Acetaminoph 2016-0 No 325 mg, Mem oria en 5-10 [...] 5-10 Route: IV, l 10:00: Drug form: [place] 00 INJ, Q6H, Dosing Weight 113.636, kg, [...] Hydrochlori 5-10 Route: l de 2.5 10:00: MISC, Demar MG/ML / 00 Dosing Epinephrine Weight 0.005 [...] CDT, Duration: 1 doses or times Sodium 2015-0 No 1,000 mL, Memori a Chloride 5-10 Rate: 50 l 0.154 10:00: ml/hr, Demar [...] hours, # 30 patch, 0 Refill(s), Pharmacy: [facility] [id number] Docusate Yes 100 mg = 1 Mem oria Sodium 100 4-12 cap, PO, l MG Oral 13:33: BID, # 60 Chiquita nn Capsule 00 cap, 0 [Colace] Refill(s), Pharmacy: [facility] [id number] gabapentin Yes 300 mg = 1 M emoria 300 MG Oral 4-12 cap, PO, l Capsule 13:33: Bedtime, # Herm shelton 00 30 cap, 0 Refill(s), Pharmacy: [facility] [id number] baclofen 20 Yes 20 mg = 1 M emoria mg oral 4-12 tab, PO, l tablet 13:33: Bedtime, # Chiquita nn 00 30 tab, 0 Refill(s), Pharmacy: [facility] [id number] baclofen 10 Yes 10 mg = 1 M emoria mg oral 4-12 tab, PO, l tablet 13:33: BID-10-29, Chiquita nn 00 # 60 tab, 0 Refill(s), Pharmacy: [facility] [id number] sertraline Yes 200 mg = 2 M emoria 100 mg oral 4-12 tab, PO, l tablet 13:33: Bedtime, # Chiquita nn 00 60 tab, 0 Refill(s), Pharmacy: [facility] senna 8.6 Yes 8.6 mg = 1 Me moria mg oral 4-12 tab, PO, l tablet 13:33: QNoon, # Demar 00 30 tab, 0 Refill(s), Pharmacy: [facility] [id number] propranolol Yes 60 mg = 1 M emoria 60 mg oral 4-12 cap, PO, l capsule, 13:33: Daily, # Chiquita nn extended 00 30 cap, 0 release Refill(s), Pharmacy: [facility] [place] [id number] Lidocaine No 1 patch, [place] Hydrochlori 12 Route: l de 0.05 03:32: TOP, [place] MG/MG 00 Daily, Transdermal Drug form: Patch FILM, PRN [Lidoderm] Pain Score 1-5, Priority: Now, Start date: 06/28/15 22:32:00 CDT, Duration: 60 day, Stop date: 08/27/15 22:31:00 CDT, Remove after 12 hours remove No Notes: Memoria patch 12 Remove l 02:00: patch 12 Demar 00 hours after applicatio n each day. Lidocaine No Notes: Memori a Hydrochlori -11 Apply only l de 0.05 13:30: once for Mauricio n MG/MG 00 up to 12 Transdermal hours in a Patch 24-hour [Lidoderm] period (12 hours on and 12 hours off). (Same as: Lidoderm) "Remove old patch before applicatio n of new patch" nichole, No Notes: [place] HALF-WAY -02 (Same as: l 17:00: Senokot) Demar 00 phenol 6% No Notes: Memori a AQ in water - WASTE: F/P l for 22:00: - Black; E [place] injection - [facility] Docusate No Notes: Memoria Sodium 100 3-31 (Same as: l MG Oral 02:00: Colace) [place] Capsule (Do Not [Colace] Crush) Sertraline No Notes: Memor ia 3-31 (Same as: l 02:00: Zoloft) Milk of No Notes: Memoria Magnesia 3-30 (Same as: l 17:00: Milk of [place] 00 Magnesia, MOM) senna 8.6 No Notes: Memori a mg oral 3-30 (Same as: l tablet 14:58: Senokot) Sertraline No Notes: Memor ia 3-30 (Same as: l 02:00: Zoloft) Baclofen No Notes: Memoria 3-27 (Same As: l 02:00: Lioresal) Baclofen No Notes: Memoria 3-26 (Same As: l 13:00: Lioresal) Demar 00 Propranolol No Notes: [place] 3-24 Take with l 13:30: food. Do not crush or chew. (Same as: Inderal [place]) Tylenol No Notes: Do Memor ia 3-24 not exceed l 11:51: 4 gm/day. (Same as: Tylenol) Sertraline No Notes: Memor ia 3-24 (Same as: l 02:00: Zoloft) gabapentin No Notes: Memor ia 100 MG Oral 3-24 (Same as: l Capsule 02:00: Neurontin) Herm shelton gabapentin No Notes: Memor ia 300 MG [...] Ativan) Saline No Notes: Memoria Flush 0.9% 06-08 (Same as: l 18:06: BD Posiflush) Baclofen No Notes: Memoria 06-08 (Same As: l 18:00: Lioresal) phenol 6% No 20 mL, Memori a AQ in water 05-23 Route: l for 16:00: NERVE Demar injection 00 BLOCK, Dosing Weight 111.364, kg, ONCALL, Start date: 05/24/15 10:00:00, Duration: 30 day, Stop date: 06/23/15 10:59:00 onabotulinu No 600 unit, M claudia mtoxinA 05-11 Route: IM, l 22:00: ONCALL, Dosing Weight 111.364, kg, Start date: 05/11/15 16:00:00, Duration: 30 day, Stop date: 06/10/15 16:59:00 Acetaminoph No Notes: [place] en 325 MG / 04-27 (Same as: l Hydrocodone 17:34: Harriman Chiquita nn Bitartrate 00 325/5) Do 5 MG Oral not exceed Tablet 4gm/day of [Harriman acetaminop 5/325] hen. Ondansetron No Notes: [place] - (Same as: l 16:14: Zofran) MEDICATION WASTE Product Size: 4 mg Product Wasted: ___ mg Flumazenil No Notes: Memor ia - (Same as: l 16:14: Romazicon) Naloxone No Notes: Memoria 2 Same as l 16:14: Narcan Hydromorpho No Notes: [place] ne - Same as: l 16:14: Dilaudid Labetalol No 10 mg, 2 [place] 2-09 mL, Route: l 16:14: IVP, Drug form: INJ, Q5Min, Dosing Weight 111.364, kg, PRN Elevated BP, Start date: 04/27/15 10:14:00, Duration: 5 doses or times, Stop date: 04/28/15 0:00:00 Metoprolol No Notes: Memor ia 04-27 (Same as: l 16:14: Lopressor) [place] Push over 2 minutes Omnipaque No Route: IV, Me moria 350 04-27 Dosing l 15:40: Weight Demar 00 111.364, kg, ONCE, Start date: 04/27/15 9:40:00, [...] TAB, 5 MG Oral Dosing Tablet Weight [Harriman 104.545, 5/325] kg, ONCE, STAT, Start date: 09/17/14 6:01:00, Stop date: 09/17/14 6:01:00 Fleet Enema 2013-03 No 133 ml, Mem oria 03-30 Route: IA, l 12:30: Drug Form: [place] 00 ROSY, Dosing Weight 75, kg, ONCE, NOW, Start date: 01/28/14 6:30:00, Stop date: 01/28/14 6:30:00 Acetaminoph 2013-03 Yes 1 tab, PO, Memoria en 300 MG / 12 Q4H, for l Codeine 11:21: pain, # 60 Herm shelton Phosphate 00 tab, 0 30 MG Oral Refill(s) Tablet [Tylenol with Codeine #3] Ondansetron 2013-03 Yes 4 mg = 1 Me moria 4 MG Oral -12 tab, PO, l Tablet 11:21: Q8H, # 30 Mauricio n [Zofran] 00 tab, 0 Refill(s) POLYETHYLEN 2013-03 Yes PO, Daily, Memoria E GLYCOL -12 0 l 3350 11:21: Refill(s) Demar 00 heparin 2013-03 No Notes: Memoria 03-30 porcine l 06:00: heparin magnesium 2013-03 No Notes: Memori a citrate 03-30 (Same as: l 04:59: Citrate of [place]) Ancef 2013-03 No 2 gm, Memoria 03-28 Route: l 20:54: IVPB, ONCE, Dosing Weight 75, kg, Start date: 01/26/14 14:54:00, Duration: 1 doses or times, Stop date: 01/26/14 14:54:00 Sertraline 2013-03 No Notes: Memor ia 03-27 (Same as: l 03:00: Zoloft) Neurontin 2013-03 No Notes: Memori a 03-27 (Same as: l 03:00: Neurontin) Fleet Enema 2013-03 No 133 ml, Mem oria 03-26 Route: IA, l 19:00: Drug Form: ROSY, Dosing Weight 75, kg, ONCE, Start date: 01/24/14 13:00:00, Stop date: 01/24/14 13:00:00 sennosides, 2013-03 No 8.6 mg, 1 M emoria HALF-WAY 8.6 MG 03-26 tab, l Oral Tablet [...] 9:00:00 Amantadine 2013-03 No Notes: Memor ia -08 (Same as: l 15:00: Symmetrel) Demar Baclofen 2013-03 No Notes: Memoria -08 (Same As: l 14:35: Lioresal) Demar Fentanyl 2013-03 No Notes: Memoria -07 (Same as: l 18:04: Sublimaze) Preservati ve free. Lidocaine 2013-03 No Notes: Memori a Hydrochlori 03-25 (Same as: l de 10 MG/ML 18:04: Xylocaine) [place] Injectable 00 Solution heparin, 2013-03 No Notes: Memoria porcine -06 porcine l 22:00: heparin [place] Miralax 2013-03 No Notes: Memoria -06 Dissolve l 16:55: in 8 oz of Demar 00 water or juice. (Same as: Miralax) Ancef + 2013-03 No Notes: Memoria Sodium -05 (Same As: l Chloride 23:00: Ancef, [place] 0.9% IV 100 00 Kefzol) mL Cefazolin FOR IV SET ONLY Demerol HCl 2013-03 No 12.5 mg, Me moria 03-23 Route: IV, l 19:00: ONCE, Dosing Weight 75, kg, Start date: 01/21/14 13:00:00, Stop date: 01/21/14 13:00:00 Fentanyl 2013-03 No Notes: Memoria 1-05 (Same as: l 16:20: Sublimaze) Preservati ve free. Hydromorpho 2013-03 No Notes: [place] ne 1-05 Same as: l 16:20: Dilaudid Dexamethaso 2013-03 No Notes: [place] ne 1-05 Concentrat l 16:20: ion: [place] 00 4mg/ml Ondansetron 2013-03 No Notes: Tom [...] gm, Memoria 1-05 Route: l 15:14: IVPB, [place] 00 ONCE, Dosing Weight 75, kg, Start date: 01/21/14 9:14:00, Duration: 1 doses or times, Stop date: 01/21/14 9:14:00 Saline 2013-03 No Notes: Memoria Flush 0.9% 1-05 (Same as: l 15:00: BD [place] Posiflush) Levetiracet 2013-03 No Notes: [place] am 1-05 (Same l 15:00: as:Keppra) [place] 00 sennosides, 2013-03 No Notes: [place] HALF-WAY 1-05 (Same as: l 15:00: Senokot) Docusate 2013-03 No Notes: Memoria Sodium 100 1-05 (Same as: l MG Oral 15:00: Colace) [place] Capsule 00 (Do Not Crush) pantoprazol 2013-03 No Notes: [place] e 1-05 (Same as: l 15:00: Protonix) Escitalopra 2013-03 No 10 mg, [place] m 1-05 Route: l 15:00: PEG, Demar 00 Daily, Dosing Weight 75, kg, Start date: 01/21/14 9:00:00, Duration: 30 day, Stop date: 02/19/14 9:00:00 Influenza 2013-03 No Notes: Memori a Virus -05 (Same as: l Vaccine, 15:00: Fluzone Mauricio n Inactivated 00 [place] A-[place]- nt) (H3N2)-like virus (A-[place]- 716-2006 [facility] [place] X-175C) strain / Influenza Virus Vaccine, Inactivated A-[place]- 59-2006, IVR-148 (H1N1) strain / Influenza Virus Vaccine, Inactivated , B-[place]-4 -2006-lik Seroquel 2013-03 No Notes: Memoria 1-05 (Same as: l 08:14: SEROquel) Demar 00 Ondansetron 2013-03 Yes Special Mem oria 4 MG 1-05 Instructio l Disintegrat 07:59: ns: Mauricio n ing Tablet 00 Dissolve tab under tongue [...] 1-05 tab, l tablet 07:59: Daily, 0 [place] 00 Refill(s) Levetiracet 2013-03 Yes 250 mg = 1 Memoria am 250 MG 1-05 tab, BID, l Oral Tablet 07:59: 0 Mauricio n 00 Refill(s) Acetaminoph 2013-03 No Notes: Do M emoria en 325 MG / 03-23 not exceed l Hydrocodone 04:41: 4gm/day of [place] Bitartrate 00 acetaminop 10 MG Oral hen. (Same Tablet as: Harriman [Harriman 325/10) ] Tylenol 2013-03 No Notes: Do Memor ia 03-23 not exceed l 04:40: 4 gm/day. Demar 00 (Same as: Tylenol) Regular 2013-03 No 60 units) [place] Insulin, -05 Stable for l Human 100 04:37: 28 days at rmann UNT/ML 00 room Injectable temperatur Solution e Expires in days from ____Date Dextrose 2013-03 No 25 gm, 50 [place] 50% Syringe 1-05 mL, Route: l 04:37: IVP, Drug [place] 00 Form: INJ, Dosing Weight 75, kg, PRN, PRN Abnormal Lab Result, Start date: 01/20/14 22:37:00, Duration: 30 day, Stop date: 02/19/14 22:36:00 Saline 2013-03 No Notes: Memoria Flush 0.9% 1-05 (Same as: l 04:37: BD Demar 00 Posiflush) Labetalol 2013-03 No 10 mg, 2 [place] 1-05 mL, Route: l 04:37: IVP, Drug [place] 00 form: INJ, Q15Min, Dosing Weight 75, kg, PRN Hypertensi on, Start date: 01/20/14 22:37:00, Duration: 3 doses or times, Stop date: Limited # of times Morphine 2013-03 No Notes: Memoria 1-05 (Same l 04:37: as:MORPhin [place] 00 e Sulfate) Ondansetron 2013-03 No Notes: [place] 1-05 (Same as: l 04:37: Zofran) Demar Bisacodyl 2013-03 No Notes: Memori a 1-05 (Same As: l 04:37: Dulcolax, [place] 00 Bisco-Lax) Sodium 2013-03 No 1,000 mL, Memori a Chloride 1-05 Rate: 125 l 0.154 04:37: ml/hr, Demar MEQ/ML 00 Infuse Injectable over: 8 Solution hr, Route: IV, Dosing Weight 75 kg, Total Volume: 1,000, Start date: 01/20/14 22:37:00, Duration: 30 day, Stop date: 02/19/14 22:36:00 Benadryl 2013-03 No 25 mg, Memoria 1-05 Route: l 01:09: IVP, ONCE, Dosing Weight 75, kg, Priority: STAT, Start date: 01/20/14 19:09:00, Stop date: 01/20/14 19:09:00 Sodium 2013-03 No 1,000 mL, Memori a Chloride 1-05 1,000 l 0.154 01:09: ml/hr, Demar MEQ/ML 00 Infuse Injectable Over: 1 Solution hr, Route: IV, ONCE, Priority: STAT, Dosing Weight 75 kg, Start date: 01/20/14 19:09:00, Duration: 1 doses or times, Stop date: 01/20/14 19:09:00 Reglan 2013-03 No 10 mg, Memoria 1-05 Route: l 01:08: IVP, Drug form: INJ, ONCE, Dosing Weight 75, kg, Priority: STAT, Start date: 01/20/14 19:08:00, Stop date: 01/20/14 19:08:00 sennosides, 2013- Yes 8.6 mg = 1 Memoria HALF-WAY 8.6 MG 8-18 tab, PO, l Oral Tablet 19:29: Q12H, # 30 Demar 00 tab, 0 Refill(s) pantoprazol Yes = 1 pkt, Me moria e 40 mg 8-18 GT, Q12H, l oral 19:29: # 30 pkt, [place] granule 00 0 Refill(s) oxyCODONE 5 Yes [...] 1 Mem oria 10 mg 8-18 supp, IA, l rectal 19:29: Daily, [place] suppository 00 Constipati on, # 30 supp, 0 Refill(s) Acetaminoph Yes 1 tab, PO, Memoria en 325 MG / 8-18 Q4H, Pain l Hydrocodone 19:29: Score 4-6, Demar Bitartrate 00 # 30 tab, 10 MG Oral 0 Tablet Refill(s) magnesium 2013- No 2 gm, 50 [place] sulfate 8-18 mL, Route: l 09:00: IVPB, Drug form: INJ, ONCE, Start date: 11/03/13 4:00:00, Stop date: 11/03/13 4:00:00 magnesium 2013- No 2 gm, 50 [place] sulfate 8-17 mL, Route: l 07:00: IVPB, Drug form: INJ, Q2H, Start date: 11/02/13 2:00:00, Duration: 2 doses or times, Stop date: 11/02/13 4:00:00 Protonix No 40 mg, 1 Memor ia 8-17 pkt, l 02:00: Route: GT, [place] 00 Drug form: GRAN/REC, Q12H, Dosing Weight 118.5, kg, Start date: 11/01/13 21:00:00, Duration: 30 day, Stop date: 12/01/13 9:00:00 sennosides, No Notes: [place] HALF-WAY 8.6 MG 8-17 (Same as: l Oral Tablet 02:00: Senokot) He magnesium 2013-0 No 2 gm, 50 [place] sulfate 8-16 mL, Route: l 09:00: IVPB, Drug form: INJ, Q2H, Start date: 11/01/13 4:00:00, Duration: 2 doses or times, Stop date: 11/01/13 6:00:00 sennosides, No Notes: [place] HALF-WAY 8.6 MG 8-15 (Same as: l Oral Tablet 15:45: Senokot) rm NS 1,000 mL No 1,000 mL, Boris taylor 10-31 Rate: 75 l 13:14: ml/hr, Demar 00 Infuse over: 13.3 hr, Route: IV, Dosing Weight 118.5 kg, Total Volume: 1,000, Start date: 10/31/13 8:14:00, Duration: 30 day, Stop date: 11/30/13 8:13:00 Sodium 2013-0 No 1,000 mL, Mem[facility] a Chloride 15 1,000 l 0.154 13:13: ml/hr, Demar MEQ/ML 00 Infuse Injectable Over: 1 Solution hr, Route: IV, 1,000, Drug form: INJ, ONCE, Priority: STAT, Dosing Weight 118.5 kg, Start date: 10/31/13 8:13:00, Duration: 1 doses or times, Stop date: 10/31/13 8:13:00 magnesium 2013-0 No 2 gm, 50 [place] sulfate 8-15 mL, Route: l 08:00: IVPB, Drug [place] 00 form: INJ, ONCE, Start date: 10/31/13 3:00:00, Stop date: 10/31/13 3:00:00 parenteral No Notes: Per [address] [facility] l solution 23:00: policy, Mauricio n w/electroly 00 bag must renetta 800 mL be changed every 24hr. magnesium No 2 gm, 50 [place] sulfate 8-14 mL, Route: l 09:00: IVPB, Drug [place] 00 form: INJ, ONCE, Start date: 10/30/13 4:00:00, Stop date: 10/30/13 4:00:00 parenteral No Notes: Per [address] l solution 23:00: policy, Mauricio n w/electroly 00 bag must renetta 800 mL be changed every 24hr. calcium No 3,000 mg, [facility] [place] gluconate + 8-13 30 mL, l Sodium 09:00: Route: IV, Chiquita nn Chloride 00 ONCE, 0.9% IV 100 Start mL date: 10/29/13 4:00:00, Stop date: 10/29/13 4:00:00 parenteral No Notes: Per [address] l solution 23:00: policy, Mauricio n w/electroly 00 bag must renetta 800 mL be changed every 24hr. magnesium No 2 gm, 50 [place] sulfate 8-12 mL, Route: l 08:30: IVPB, Drug [place] 00 form: INJ, Q2H, Start date: 10/28/13 3:30:00, Duration: 2 doses or times, Stop date: 10/28/13 5:30:00 parenteral No Notes: Per [address] l solution 23:00: policy, Mauricio n w/electroly 00 bag must renetta 800 mL be changed every 24hr. sodium No Notes: [facility] phosphate + 8-11 (Same as: l Sodium 11:00: Na [place] Chloride 00 Phosphate, 0.9% IV 250 Na PO4) mL magnesium No 2 gm, 50 [place] sulfate 8-11 mL, Route: l 11:00: IVPB, Drug [place] 00 form: INJ, Q2H, Start date: 10/27/13 6:00:00, Duration: 2 doses or times, Stop date: 10/27/13 8:00:00 parenteral 0 No Notes: Per [address] l solution 23:00: policy, Mauricio n w/electroly 00 bag must renetta 1,000 be changed mL every 24hr. magnesium No 2 gm, 50 [place] sulfate 8-10 mL, Route: l 09:00: IVPB, Drug Demar 00 form: INJ, Q2H, Start date: 10/26/13 4:00:00, Duration: 2 doses or times, Stop date: 10/26/13 6:00:00 sodium No Notes: [facility] phosphate + 10 (Same as: l Sodium 08:00: Na [place] Chloride 00 Phosphate, 0.9% IV 250 Na PO4) mL parenteral No Notes: Per [address] l solution 23:00: policy, Mauricio n w/electroly 00 bag must renetta 1,000 be changed mL every 24hr. Lexapro No Notes: [facility]oria 10-25 (Same as: l 17:03: Lexapro) Deamr potassium No Notes: Memori a phosphate + 10-25 (Same as: l Sodium 10:00: K Demar Chloride 00 Phosphate. 0.9% IV 250 ) 1 mMol mL phoshate has 1.47 mEq potassium Infuse over 2 hours magnesium No 2 gm, 50 [place] sulfate 8-09 mL, Route: l 09:30: IVPB, Drug [place] form: INJ, Q2H, Start date: 10/25/13 4:30:00, Duration: 2 doses or times, Stop date: 10/25/13 6:30:00 Vancomycin No Notes: Mem[facility] ia 10-25 (Same As: l 08:00: Vancocin) Demar 00 Vancomycin FOR IV SET ONLY parenteral No Notes: Per [address] l solution 23:00: policy, Mauricio n w/electroly 00 bag must renetta 750 mL be changed every 24hr. heparin No Notes: Memoria sodium, 10-24 porcine l porcine 21:00: heparin [place] 2500 UNT/ML 00 Injectable Solution Saline No Notes: [facility] Flush 0.9% 10-24 (Same as: l 21:00: BD Demar 00 Posiflush) Saline No Notes: [facility] Flush 0.9% 10-24 (Same as: l 13:53: BD Posiflush) magnesium No 2 gm, 50 [place] sulfate 8-08 mL, Route: l 06:00: IVPB, Drug form: INJ, Q2H, Start date: 10/24/13 1:00:00, [...] 10-23 Instructio l Monobasic 20:57: ns: FOR ICU USE ONLY Calcium No 1,000 mg, Memor ia Carbonate 10-23 Route: PO, l 500 MG 20:57: PRN, [place] Chewable 00 Dosing Tablet Weight 118.5, kg, PRN Abnormal Lab Result, FOR ICU USE ONLY, Start date: 10/23/13 15:57:00, Duration: 30 day, Stop date: 11/22/13 15:56:00 Phosphorus No Special [place] / Potassium 10-23 Instructio l 20:57: ns: FOR Demar 00 ICU USE ONLY Neutra-Phos No 2 pkt, [place] 10-23 Route: PO, l 20:57: Dosing Weight 118.5, kg, PRN, PRN Abnormal Lab Result, FOR ICU USE ONLY, Start date: 10/23/13 15:57:00, Duration: 30 day, Stop date: 11/22/13 15:56:00 Calcium 2013-0 No Special [facility] Gluconate 10-23 Instructio l 20:57: ns: FOR ICU USE ONLY Magnesium 0 No Special Mem[facility] Sulfate 10-23 Instructio l 20:57: ns: FOR ICU USE ONLY Magnesium 0 No 800 mg, Mem[facility] ia Oxide 10-23 Route: PO, l 20:57: PRN, Dosing Weight 118.5, kg, PRN Abnormal Lab Result, FOR ICU USE ONLY, Start date: 10/23/13 15:57:00, Duration: 30 day, Stop date: 11/22/13 15:56:00 potassium 0 No Notes: Memori a chloride 10-23 (Same as: l 04:00: KCL) Infuse no faster than 10 mEq/hr if given peripheral ly. magnesium No 2 gm, 50 [place] sulfate 10-23 mL, Route: l 04:00: IVPB, Drug form: INJ, Q2H, Start date: 10/22/13 23:00:00, Duration: 2 doses or times, Stop date: 10/23/13 1:00:00 Fentanyl No Notes: [facility] 8-06 (Same as: l 22:15: Sublimaze) Preservati ve free. Fentanyl No Notes: [facility] 8-06 (Same as: l 22:14: Sublimaze) Preservati ve free. Fentanyl No 25 [facility]oria 8-06 microgram, l 21:17: Route: IV, ONCE, Dosing Weight 118.5, kg, Start date: 10/22/13 16:17:00, Stop date: 10/22/13 16:17:00 Versed 0 No 1 mg, Memoria 8-06 Route: IV, l 21:17: ONCE, Dosing Weight 118.5, kg, Start date: 10/22/13 16:17:00, Stop date: 10/22/13 16:17:00 potassium 2013-0 No Notes: Memori a chloride 8- (Same as: l 19:00: KCL) Infuse no faster than 10 mEq/hr if given peripheral ly. magnesium No 2 gm, 50 [place] sulfate 8-06 mL, Route: l 18:00: IVPB, Drug form: INJ, ONCE, Start date: 10/22/13 13:00:00, [...] Chloride 10-22 1,000 l 0.154 14:16: ml/hr, [place] MEQ/ML 00 Infuse Injectable Over: 1 Solution hr, Route: IV, 1,000, Drug form: INJ, ONCE, Priority: STAT, Dosing Weight 118.5 kg, Start date: 10/22/13 9:16:00, Duration: 1 doses or times, Stop date: 10/22/13 9:16:00 Acetaminoph No Notes: [place] en 10-22 Infuse l 14:00: over 15 00 minutes Do not exceed 4gm/day of acetaminop [...] 25 gm, 50 [place] 50% Syringe 8- mL, Route: l 09:24: IVP, Drug Form: INJ, Dosing Weight 118.5, kg, ONCE, STAT, Start date: 10/22/13 4:24:00, Stop date: 10/22/13 4:24:00 Insulin, 2013-0 No 60 units) Mem oria Regular, 10-22 Stable for l Pork 09:24: 28 days at [place] 00 room temperatur e Expires in days from ____Date Sodium No Notes: [facility] Bicarbonate 10-22 (sodium l 1 MEQ/ML 09:18: bicarb [place] Injectable 00 8.4% (1 Solution mEq/ml) 50 ml syringe) Magnesium No 2 gm, 50 [place] Sulfate 8- mL, Route: l 09:18: IVPB, Drug form: INJ, ONCE, Dosing Weight 118.5, kg, Start date: 10/22/13 4:18:00, Duration: 2 hr, Stop date: 10/22/13 4:18:00 Fluconazole 2013-0 No Notes: [place] 10-22 (Same as: l 09:04: Diflucan) Do not refrigerat e Calcium 2013-0 No 1,000 mg, [facility] ia Chloride 10-22 10 mL, l 08:47: Route: Demar 00 IVPB, ONCE, Dosing Weight 118.5, kg, Start date: 10/22/13 3:47:00, Stop date: 10/22/13 3:47:00 Calcium 2013-0 No 1,000 mg, [facility] Chloride 10-22 10 mL, l 08:11: Route: IVPB, ONCE, Dosing Weight 118.5, kg, Start date: 10/22/13 3:11:00, Stop date: 10/22/13 3:11:00 Protonix 2013-0 No Notes: For Mem oria 10-22 IV push l 07:41: reconstitu te with 10 ml 0.9% sodium chloride and push over 2 minutes. (Same as: Protonix) Sodium 2013-0 No 100 mL, [facility] Chloride 10-22 Rate: 10 l 0.154 07:40: ml/hr, [place] MEQ/ML 00 Infuse Injectable over: 10 Solution hr, Route: IVPB, Dosing Weight 118.5 kg, Total Volume: 100, Infuse at 8 mg / hr for 72 hours for GI bleeding, Start date: 10/22/13 2:40:00, Duration: 72 hr, Stop date: 10/25/13 2:39:00 Golytely No Notes: [facility] 10-22 (Same as: l 07:17: Nulytely) Demar 00 vasopressin No 250 mL, Mem oria 80 unit [...] 10-22 (Same As: l 02:00: Vancocin) Demar Vancomycin FOR IV SET ONLY Zosyn No Notes: [facility] 10-22 (Same as: l 02:00: Zosyn) [place] Dosing based on Piperacill in component Vancomycin [...] 30 day, Stop date: 11/20/13 20:07:00 Sodium 2013-0 No 1,000 mL, Memori a Chloride 10-22 1,000 l 0.154 00:32: ml/hr, [place] MEQ/ML 00 Infuse Injectable Over: 1 Solution [...] No 3,000 mg, [facility] ia gluconate + 804 30 mL, l Sodium 10:00: Route: Demar Chloride 00 IVPB, 0.9% IV 100 ONCE, mL Start date: 10/20/13 5:00:00, Stop date: 10/20/13 5:00:00 parenteral No Notes: Per [facility] 8 [facility] l solution 23:00: policy, Mauricio n w/electroly 00 bag must renetta 665 mL be changed every 24hr. potassium No Notes: Memori a chloride 10-19 (Same as: l 08:00: Potassium [place] 00 Chloride) magnesium No 2 gm, 50 [place] sulfate 8-03 mL, Route: l 08:00: IVPB, Drug [place] 00 form: INJ, ONCE, Start date: 10/19/13 3:00:00, Stop date: 10/19/13 3:00:00 parenteral No Notes: Per [facility] 8- [facility] l solution 23:00: policy, Mauricio n w/electroly 00 bag must renetta 665 mL be changed every 24hr. Acetaminoph No Notes: Max Memoria en 10-18 acetaminop l 15:46: hen = Demar 00 4000mg/day (4 gm/day). (Same as: Tylenol) Protonix No Notes: For Mem oria 10-18 IV push l 14:00: reconstitu Demar 00 te with 10 ml 0.9% sodium [...] Mem[facility] 10-18 (Same as: l 02:57: Osmitrol) [place] 00 Infuse through 5 micron or smaller filter Acetaminoph No Notes: Do emoria en 325 MG / 10-18 not exceed l Hydrocodone 02:52: 4gm/day of [place] Bitartrate 00 acetaminop 10 MG Oral hen. (Same Tablet as: [place] [[place] 325/10) 10/325] Acetaminoph No Notes: [place] en 325 MG / 10-18 (Same as: l Hydrocodone 02:51: [place] Chiquita nn Bitartrate 00 325/5) Do 5 MG Oral not exceed Tablet 4gm/day of [[place] acetaminop 5/325] hen. Acetaminoph No Notes: [place] en 325 MG / 10-18 (Same as: l Hydrocodone 02:50: [place] Chiquita nn Bitartrate 00 325/5) Do 5 MG Oral not exceed Tablet 4gm/day of [[place] acetaminop 5/325] hen. Fentanyl No Notes: [facility] 10-18 (Same as: l 02:48: Sublimaze) Demar Preservati ve free. parenteral No Notes: [facility] l solution 23:00: policy, Mauricio n w/electroly 00 bag must renetta 600 mL be changed every 24hr. NS 1,000 mL No 1,000 mL, Boris taylor 10-17 Rate: 100 l 14:02: ml/hr, [place] 00 Infuse over: 10 hr, Route: IV, Dosing Weight 118.5 kg, Total Volume: 1,000, Start date: 10/17/13 9:02:00, Duration: 30 day, Stop date: 11/16/13 9:01:00 Acetaminoph No Notes: Do Boris taylor en 10-17 not exceed l 13:53: 4 gm/day. [place] 00 (Same as: Tylenol) Sodium No 60 mL, Memoria Chloride 4 10-16 Route: IV, l MEQ/ML 23:18: ONCE, Demar Injectable 00 Dosing Solution Weight 118.5 kg, Start date: 10/16/13 18:18:00, Duration: 1 doses or times, Stop date: 10/16/13 18:18:00 Ancef No 2 gm, Memoria 10-16 Route: l 20:51: IVPB, Demar 00 ONCE, Dosing Weight 118.5, kg, Start date: 10/16/13 15:51:00, Duration: 1 doses or times, Stop date: 10/16/13 15:51:00 Magnesium No 2 gm, Memoria Sulfate 10-16 Route: l 20:19: IVPB, Drug Demar 00 form: INJ, ONCE, [...] Memoria 7-31 microgram, l 14:29: 20 mL, Demar 00 Rate: Titrate as directed, Dosing Weight 118.5, kg, Route: IV, Total Volume: 20 mL, Start Date: 10/16/13 9:29:00, Duration: 30 day, Stop date: 11/15/13 9:28:00, Replace Every: 24 hr Acetaminoph No Notes: Do Boris taylor en 10-16 not exceed l 14:28: 4 gm/day. [place] 00 (Same as: Tylenol) Demerol HCl No Notes: [place] 7-31 (Same as: l 10:46: Demerol) Demar 00 "Use Precaution in Elderly, Seizure disorders, and Renal impairment " Sodium No 500 mL, Memoria Chloride 7-31 500 ml/hr, l 0.154 03:11: Infuse [place] MEQ/ML 00 Over: 1 Injectable hr, Route: Solution IV, 500, Drug form: INJ, ONCE, Priority: STAT, Dosing Weight 118.5 kg, Start date: 10/15/13 22:11:00, Duration: 1 doses or times, Stop date: 10/15/13 22:11:00 Buspar No Notes: Memoria 7-31 (Same As: l 03:00: BuSpar) [place] Magnesium No 2 gm, 50 [place] Sulfate 7-30 mL, Route: l 15:00: IVPB, Drug form: INJ, Q2H, Dosing Weight 118.5, kg, Total dose = 6 gm, Start date: 10/15/13 10:00:00, Duration: 3 doses or times, Stop date: 10/15/13 14:00:00 Demerol HCl No Notes: [place] 7-30 (Same as: l 11:25: Demerol) Demar "Use Precaution in Elderly, Seizure disorders, and Renal impairment " Miralax No Notes: Memoria 7-30 Dissolve l 02:00: in 8 oz of [place] 00 water or juice. (Same as: Miralax) [...] ICU use only. See Order Comments!! Sodium 2014-0 No 500 mL, [facility] Chloride 7-29 500 ml/hr, l 0.154 08:15: Infuse [place] MEQ/ML 00 Over: 1 Injectable hr, Route: Solution IV, ONCE, Priority: STAT, Dosing Weight 118.5 kg, Start date: 10/14/13 3:15:00, Duration: 1 doses or times, Stop date: 10/14/13 3:15:00 Sodium 2013-0 No 500 mL, [facility] Chloride 3% 7-29 Rate: 150 l IV 500 mL 06:09: ml/hr, Mauricio n 00 Infuse over: 3.3 hr, Route: IV, Dosing Weight 118.5 kg, Total Volume: 500, Start date: 10/14/13 1:09:00, Stop date: 11/13/13 1:08:00 Water 1000 No Special [place] MG/ML 7-29 Instructio l Injectable 05:34: ns: For Herm shelton Solution 00 IMU and ICU use only. See Order Comments!! Magnesium 2013-0 No 2 gm, 50 [place] Sulfate 7-29 mL, Route: l 03:19: IVPB, Drug [place] form: INJ, PRN, Dosing Weight 118.5, kg, PRN Abnormal Lab Result, Start date: 10/13/13 22:19:00, Duration: 30 day, Stop date: 11/12/13 22:18:00 Sodium 2013-0 No 18 mmol, 6 Memor ia Phosphate, 7-29 mL, Route: l Monobasic 03:19: IVPB, PRN, He rmann Dosing Weight 118.5, kg, PRN Abnormal Lab Result, Start date: 10/13/13 22:19:00, Duration: 30 day, Stop date: 11/12/13 22:18:00 Calcium 2013-0 No 1 gm, 10 Memori a Chloride 7-29 mL, Route: l 03:19: IVPB, PRN, [place] 00 Dosing Weight 118.5, kg, PRN Abnormal Lab Result, Start date: 10/13/13 22:19:00, Duration: 30 day, Stop date: 11/12/13 22:18:00 Potassium No Notes: Memori a Chloride 7-29 (Same as: l 03:19: KCL) Demar 00 Infuse no faster than 10 mEq/hr if given peripheral ly. Sodium No 1,000 mL, Memori a Chloride 3% 7- Rate: 150 l (Hypertonic 02:19: ml/hr, Herm shel[place] ) IV 1000 00 Infuse mL over: 6.7 hr, Route: IV, Dosing Weight 118.5 kg, Total Volume: 1,000, Start date: 10/13/13 21:19:00, Duration: 30 day, Stop date: 11/12/13 21:18:00 Water 1000 No Special [place] MG/ML 7-29 Instructio l Injectable 02:00: ns: For Herm [place] Solution 00 IMU and ICU use only. See Order Comments!! sterile No Special Memoria water INJ 7-29 Instructio l 1000 ml 01:48: ns: For Demar 457.25 mL + 00 IMU and sodium ICU use chloride only. See 171 mEq Order Comments!! sterile No Notes: Memoria water 7-29 (Same as: l 871.75 mL + 00:31: Hypertonic [place] sodium 00 Saline 3%) chloride 513 mEq Water 1000 No Special [place] MG/ML - Instructio l Injectable 23:22: ns: For Herm [place] Solution 00 IMU and ICU use only. See Order Comments!! Magnesium No 2 gm, 50 [place] Sulfate 7-28 mL, Route: l 23:00: IVPB, Drug [place] 00 form: INJ, Q2H, Dosing Weight 118.5, kg, Total dose = 4 gm, Start date: 10/13/13 18:00:00, Duration: 2 doses or times, Stop date: 10/13/13 20:00:00 chlorhexidi No Notes: [place] ne -28 (Same As: l gluconate 17:00: Peridex) Herm shel[place] 1.2 MG/ML 00 Mouthwash Sodium No Notes: Memoria Chloride 3% 7- "Administe l (Hypertonic 16:06: r by Mauricio [...] ia 10-13 (Same As: l 14:02: Norcuron) [place] 00 Buspar No 30 mg, 3 Memoria - tab, l 14:00: Route: PO, Demar 00 Drug form: TAB, Q12H, Dosing Weight 118.5, kg, Start date: 10/13/13 9:00:00, Duration: 30 day, Stop date: 11/11/13 21:00:00 Dexmedetomi No Notes: [place] dine 0.004 10-13 (Same as: l MG/ML 13:49: Precedex) Demar Injectable 00 Solution [Precedex] Water 1000 No Special [place] MG/ML 10-13 Instructio l Injectable 13:06: ns: For Herm [place] Solution 00 IMU and ICU use only. See Order Comments!! Sodium 2013- No 30 mL, Memoria Chloride 4 10-13 Route: IV, l MEQ/ML 06:06: ONCE, Demar Injectable 00 Dosing Solution Weight 118.5 kg, Start date: 10/13/13 1:06:00, Duration: 1 doses or times, Stop date: 10/13/13 1:06:00 Sodium 2013-0 No 30 mL, Memoria Chloride 4 10-13 Route: IV, l MEQ/ML 05:40: ONCE, Demar Injectable 00 Dosing Solution Weight 118.5 kg, Start date: 10/13/13 0:40:00, Duration: 1 doses or times, Stop date: 10/13/13 0:40:00 Sodium 2013-0 No 60 mL, Memoria Chloride 4 10-13 Route: IV, l MEQ/ML 05:27: ONCE, [place] Injectable 00 Dosing Solution Weight 118.5 kg, Start date: 10/13/13 0:27:00, Duration: 1 doses or times, Stop date: 10/13/13 0:27:00 magnesium 2013-0 No 4 gm, 100 Mem oria sulfate 7-28 mL, Route: l 03:11: IVPB, Drug form: INJ, ONCE, Start date: 10/12/13 22:11:00, Stop date: 10/12/13 22:11:00 potassium 2014-0 No Notes: Memori a chloride 7-28 (Same as: l 03:00: KCL) [place] 00 Infuse no faster than 10 mEq/hr if given peripheral ly. Potassium 2014-0 No 40 mEq, Memor ia Chloride 7- Route: IV, l 02:38: ONCE, Demar Dosing Weight 118.5, kg, Start date: 10/12/13 21:38:00, Stop date: 10/12/13 21:38:00 Magnesium 2013-0 No Route: IV, Me moria Sulfate 7-28 ONCE, l 02:37: Dosing Weight 118.5, kg, Start date: 10/12/13 21:37:00, Stop date: 10/12/13 21:37:00 Calcium 2014-0 No 1,000 mg, Memor ia Gluconate - 10 mL, l 02:35: Route: [place] IVPB, ONCE, Dosing Weight 118.5, kg, Start date: 10/12/13 21:35:00, Stop date: 10/12/13 21:35:00 Sodium 2014-0 No 500 mL, Memoria Chloride 3% - Rate: 150 l (Hypertonic 23:57: ml/hr, Herm shel[place] ) IV 500 mL 00 Infuse over: 3.3 hr, Route: IV, Dosing Weight 118.5 kg, Total Volume: 500, Start date: 10/12/13 18:57:00, Duration: 1 doses or times, Stop date: 10/13/13 15:48:00 sodium 2014-0 No 171 mEq, Memoria chloride + 7-27 42.75 mL, l sterile 14:00: 500 ml/hr, Herm [place] water Route: IV, 457.25 mL Drug Form: INJ, ONCE, Start date: 10/12/13 9:00:00, Stop date: 10/12/13 9:00:00 Water 1000 No Special [place] MG/ML 7- Instructio l Injectable 13:24: ns: For Herm shel[place] Solution 00 IMU and ICU use only. See Order Comments!! Water 1000 No Special [place] MG/ML 10-12 Instructio l Injectable 11:53: ns: For Herm shel[place] Solution 00 IMU and ICU use only. See Order Comments!! Sodium No Notes: Memoria Chloride 3% 10-12 "Administe l (Hypertonic 11:16: r by Mauricio rizo ) IV 500 mL 00 central venous catheter or a peripheral ly inserted central catheter (PICC) line. 3% Sodium Chloride may be infused via peripheral administra tion into large vein (antecubit al) only in the case of emergency for short term use until a central line can be inserted" (Same as: Hypertonic Saline 3%) Hydromorpho No 1 mg, Memor ia ne 10-12 Route: l 10:56: IVP, ONCE, [place] 00 Dosing Weight 118.5, kg, Priority: STAT, Start date: 10/12/13 5:56:00, Stop date: 10/12/13 5:56:00 Sodium No 120 mEq, Memoria Chloride 4 10-12 30 mL, 60 l MEQ/ML 09:00: ml/hr, [place] Injectable 00 Infuse Solution Over: 30 minutes, Route: IV, 30, Drug form: INJ, ONCE, Dosing Weight 118.5 kg, Start date: 10/12/13 4:00:00, Duration: 1 doses or times, Stop date: 10/12/13 4:00:00 Sodium No 30 mL, 60 Memori a Chloride 4 -26 ml/hr, l MEQ/ML 16:48: Infuse Demar Injectable 00 Over: 30 Solution minutes, Route: IV, ONCE, Dosing Weight 118.5 kg, Start date: 10/11/13 11:48:00, Duration: 1 doses or times, Stop date: 10/11/13 11:48:00 Vecuronium No Notes: Memor ia 10-11 (Same As: l 16:48: Norcuron) Fentanyl No 1,000 Memoria - microgram, l 16:47: 20 mL, [place] 00 Rate: Titrate as directed, Dosing Weight 118.5, kg, Route: IV, Total Volume: 20 mL, Start Date: 10/11/13 11:47:00, Duration: 30 day, Stop date: 11/10/13 11:46:00, Replace Every: 24 hr Sodium 2014-0 No 500 mL, Memoria Chloride 7-26 500 ml/hr, l 0.154 12:16: Infuse Demar MEQ/ML 00 Over: 1 Injectable hr, Route: Solution IV, 500, Drug form: INJ, ONCE, Priority: STAT, Dosing Weight 118.5 kg, Start date: 10/11/13 7:16:00, Duration: 1 doses or times, Stop date: 10/11/13 7:16:00 potassium 2013-0 No Notes: Memori a chloride -26 (Same as: l 11:30: Potassium Demar 00 Chloride) magnesium 2013- No 2 gm, 50 [place] sulfate 7-26 mL, Route: l 11:00: IVPB, Drug Demar 00 form: INJ, ONCE, Start date: 10/11/13 6:00:00, Stop date: 10/11/13 6:00:00 Fentanyl No 1,000 Memoria 7-26 microgram, l 03:11: 20 mL, [place] 00 Rate: Titrate as directed, Dosing Weight 118.5, kg, Route: IV, Total Volume: 20 mL, Start Date: 10/10/13 22:11:00, Duration: 30 day, Stop date: 11/09/13 22:10:00, Replace Every: 24 hr calcium 2013-0 No 3 gm, 30 Memori a gluconate + 7-26 mL, Route: l Sodium 01:00: IV, ONCE, Mauricio n Chloride 00 Start 0.9% IV 50 date: mL 10/10/13 20:00:00, Stop date: 10/10/13 20:00:00 potassium 2013-0 No Notes: Memori a phosphate + 7-26 (Same as: l Sodium 00:30: K [place] Chloride 00 Phosphate. 0.9% IV 250 ) 1 mMol mL phoshate has 1.47 mEq potassium Infuse over 4 hours Fentanyl 2013-0 No Notes: Memoria 7-26 (Same as: l 00:18: Sublimaze) Demar 00 Preservati ve free. magnesium 2013-0 No 2 gm, 50 [place] sulfate 7-25 mL, Route: l 23:37: IVPB, Drug Demar 00 form: INJ, ONCE, Start date: 10/10/13 18:37:00, Stop date: 10/10/13 18:37:00 Calcium 2014-0 No 1,000 mg, Memor ia Gluconate - Route: l 23:00: IVPB, Drug [place] 00 form: INJ, Q2H, Dosing Weight 118.5, kg, Start date: 10/10/13 18:00:00, Duration: 2 doses or times, Stop date: 10/10/13 20:00:00 Magnesium 2014-0 No 2 gm, Memoria Sulfate 10-10 Route: l 23:00: IVPB, Drug [place] 00 form: INJ, Q2H, Dosing Weight 118.5, kg, Total dose = 4 gm, Start date: 10/10/13 18:00:00, Duration: 2 doses or times, Stop date: 10/10/13 20:00:00 Mannitol 2014-0 No 50 gm, Memoria 7- Route: l 21:01: IVPB, [place] 00 ONCE, Dosing Weight 118.5, kg, Start date: 10/10/13 16:01:00, Stop date: 10/10/13 16:01:00 Sodium 2014-0 No 1,000 mL, Memori a Chloride 25 1,000 l 0.154 19:24: ml/hr, [place] MEQ/ML 00 Infuse Injectable Over: 1 Solution hr, Route: IV, ONCE, Priority: STAT, Dosing Weight 118.5 kg, Start date: 10/10/13 14:24:00, Duration: 1 doses or times, Stop date: 10/10/13 14:24:00 calcium 2014-0 No 2,000 mg, Memor ia gluconate + 25 20 mL, l Sodium 11:30: Route: IV, Chiquita nn Chloride 00 ONCE, 0.9% IV 100 Start mL date: 10/10/13 6:30:00, Stop date: 10/10/13 6:30:00 potassium 2014-0 No Notes: Memori a chloride 7-25 (Same as: l 11:00: Potassium [place] 00 Chloride) Omnipaque 2014-0 No 100 mL, Memor ia 300 7-24 Route: l 20:10: INTRAARTER [place] 00 IAL, Dosing Weight 118.5, kg, ONCE, Start date: 10/09/13 15:10:00, Stop date: 10/09/13 15:10:00 Verapamil 2014-0 No 10 mg, Memori a 10-09 Route: l 19:32: INTRAARTER [place] 00 IAL, ONCE, Dosing Weight 118.5, kg, Start date: 10/09/13 14:32:00, Stop date: 10/09/13 14:32:00 Nicardipine 2014-0 No 5 mg, Memor ia 10-09 Route: l 19:32: INTRAARTER Demar 00 IAL, ONCE, Dosing Weight 118.5, kg, Start date: 10/09/13 14:32:00, Stop date: 10/09/13 14:32:00 Nitroglycer 2014-0 No 200 Memori a in 7-24 microgram, l 19:32: Route: [place] 00 INTRAARTER IAL, ONCE, Dosing Weight 118.5, kg, Start date: 10/09/13 14:32:00, Stop date: 10/09/13 14:32:00 Verapamil 2014-0 No 10 mg, Memori a 10-09 Route: l 19:08: INTRAARTER [place] 00 IAL, ONCE, Dosing Weight 118.5, kg, Start date: 10/09/13 14:08:00, Stop date: 10/09/13 14:08:00 Nicardipine 2014-0 No 5 mg, Memor ia 10-09 Route: l 19:08: INTRAARTER [place] 00 IAL, ONCE, Dosing Weight 118.5, kg, Start date: 10/09/13 14:08:00, Stop date: 10/09/13 14:08:00 Nitroglycer 2013-0 No 200 Memori a in 7-24 microgram, l 19:08: Route: [place] 00 INTRAARTER IAL, ONCE, Dosing Weight 118.5, kg, Start date: 10/09/13 14:08:00, Stop date: 10/09/13 14:08:00 calcium 2014-0 No 3,000 mg, Memor ia gluconate + 10-09 30 mL, l Sodium 11:30: Route: Demar Chloride 00 IVPB, 0.9% IV 100 ONCE, mL Start date: 10/09/13 6:30:00, Stop date: 10/09/13 6:30:00 sodium 2013-0 No Notes: Memoria phosphate + 7-24 (Same as: l Sodium 11:30: Na Demar Chloride 00 Phosphate, 0.9% IV 250 Na PO4) mL Fentanyl 2014-0 No 100 Memoria 7-24 microgram, l 09:42: Route: Demar 00 IVP, Drug form: INJ, ONCE, Dosing Weight 118.5, kg, Start date: 10/09/13 4:42:00, Stop date: 10/09/13 4:42:00 Ancef + 2013-0 No Notes: Memoria Sodium 7-24 (Same As: l Chloride 05:00: Ancef, [place] 0.9% IV 100 00 Kefzol) mL Verapamil 2013-0 No 10 mg, Memori a 7-24 Route: l 00:56: INTRAARTER [place] 00 IAL, ONCE, Dosing Weight 118.5, kg, Start date: 10/08/13 19:56:00, Stop date: 10/08/13 19:56:00 Nicardipine 2013-0 No 5 mg, Memor ia 7-24 Route: l 00:56: INTRAARTER [place] 00 IAL, ONCE, Dosing Weight 118.5, kg, Start date: 10/08/13 19:56:00, Stop date: 10/08/13 19:56:00 Nitroglycer 2013-0 No 200 Memori a in 7-24 microgram, l 00:56: Route: [place] 00 INTRAARTER IAL, ONCE, Dosing Weight 118.5, kg, Start date: 10/08/13 19:56:00, Stop date: 10/08/13 19:56:00 Omnipaque 2013-0 No 150 ml, Memor ia 300 7-24 Route: l 00:56: INTRAARTER [place] 00 IAL, Dosing Weight 118.5, kg, ONCE, Start date: 10/08/13 19:56:00, Stop date: 10/08/13 19:56:00 Sodium 2014-0 No 30 mL, 60 Memori a Chloride 4 7-23 ml/hr, l MEQ/ML 23:37: Infuse [place] Injectable 00 Over: 30 Solution minutes, Route: IV, ONCE, Dosing Weight 118.5 kg, Start date: 10/08/13 18:37:00, Duration: 1 doses or times, Stop date: 10/08/13 18:37:00 Sodium No Notes: [facility] Chloride 3% 7-23 "Administe l (Hypertonic 23:07: r by Mauricio [...] 4 7-23 ml/hr, l MEQ/ML 21:29: Infuse Demar Injectable 00 Over: 30 Solution [...] Chloride 7-23 1,000 l 0.0014 08:14: ml/hr, Demar MEQ/ML / 00 Infuse Potassium Over: 1 [...] No 3,000 mg, Memor ia gluconate + 10-08 30 mL, l Sodium 07:00: Route: Demar Chloride 00 IVPB, 0.9% IV 100 ONCE, mL Start date: 10/08/13 2:00:00, Stop date: 10/08/13 2:00:00 Potassium No 20 mEq, Memor ia Acetate 10-08 Route: l 05:33: IVPB, [place] 00 ONCE, Dosing Weight 118.5, kg, Start date: 10/08/13 0:33:00, Stop date: 10/08/13 0:33:00 LR IV 1,000 No 1,000 mL, M emoria mL 10-07 [...] a 10-07 Same as l 14:00: Merrem.. Protonix No Notes: For Mem oria 10-07 IV push l 14:00: reconstitu te with 10 ml 0.9% sodium chloride and push over 2 minutes. (Same as: Protonix) Zyvox No 600 mg, Memoria 10-07 300 mL, l 14:00: Route: [place] 00 IVPB, Drug form: SOLN, [id number], Dosing Weight 118.5, kg, Start date: 10/07/13 9:00:00, Stop date: 11/06/13 4:00:00 calcium No 3,000 mg, Memor ia gluconate + 10-07 30 mL, l Sodium 13:30: Route: [place] Chloride 00 IVPB, 0.9% IV 50 ONCE, mL Start date: 10/07/13 8:30:00, Stop date: 10/07/13 8:30:00 potassium No Notes: Memori a chloride 10-07 (Same as: l 13:00: KCL) Infuse no faster than 10 mEq/hr if given peripheral ly. iodixanol No Notes: Memori a 10-07 (Same as: l 12:30: Visipaque) . iodixanol [...] of acetaminop hen Iohexol No Notes: Memoria 7- (Same l 08:18: as:Omnipaq ue 350). Sodium No 1,000 mL, Memori a Chloride 10-07 1,000 l 0.154 04:25: ml/hr, Demar MEQ/ML 00 Infuse Injectable Over: 1 Solution hr, Route: IV, 1,000, Drug form: INJ, ONCE, Priority: STAT, Dosing Weight 118.5 kg, Start date: 10/06/13 23:25:00, Duration: 1 doses or times, Stop date: 10/06/13 23:25:00 Rocuronium No Notes: Memor ia 7-22 (Same as: l 04:24: Zemeron) [place] 00 Sodium 2013- No 1,000 mL, Memori a Chloride 7-22 1,000 l 0.154 04:24: ml/hr, Demar MEQ/ML 00 Infuse Injectable Over: 1 Solution hr, Route: IV, 1,000, Drug form: INJ, ONCE, Priority: STAT, Dosing Weight 118.5 kg, Start date: 10/06/13 23:24:00, Duration: 1 doses or times, Stop date: 10/06/13 23:24:00 Sodium 2013- No 1,000 mL, Memori a Chloride 7-22 1,000 l 0.154 04:23: ml/hr, [place] MEQ/ML 00 Infuse Injectable Over: 1 Solution hr, Route: IV, 1,000, Drug form: INJ, ONCE, Priority: STAT, Dosing Weight 118.5 kg, Start date: 10/06/13 23:23:00, Duration: 1 doses or times, Stop date: 10/06/13 23:23:00 Rocuronium No Notes: Memor ia 7-22 (Same as: mendoza 04:10: Mustaphameron) Demar 00 norepinephr No 242 mL, Mem oria ine 8 mg + 10-07 Rate: Use l Sodium 03:11: as [place] Chloride 00 direced, 0.9% Dosing (titrate) Weight 242 mL 118.5, kg, Route: IV, Total Volume: 250 mL, Start Date: 10/06/13 22:11:00, Duration: 30 day, Stop date: 11/05/13 22:10:00, Replace Every: 24 hr Propofol 10 No Notes: If M emoria MG/ML -22 Diprivan - l Injectable 03:11: change Chiquita nn Suspension 00 bottle & tubing every 12 hr Per state nursing law propofol can only be given by a nurse if patient is intubated or being intubated (unless the nurse is a MANAGING DIRECTOR [employer]). Same as: Diprivan PlasmaLyte No 1,000 mL, Me moria A PH-7.4 7-22 Rate: 150 l 1,000 mL 03:10: ml/hr, Demar Infuse over: 6.7 hr, Route: IV, Dosing Weight 118.5 kg, Total Volume: 1,000, Start date: 10/06/13 22:10:00, Duration: 30 day, Stop date: 11/05/13 22:09:00 Ketorolac No 4 days. [place] Tromethamin 10-07 l e 15 MG/ML 00:36: [place] Injectable 00 Solution Lactulose No Notes: Memori a 7- (Same l 22:22: as:Chronul Demar 00 ac) molasses No Notes: Memoria 7- (Same l 16:27: as:Molasse [place] 00 s) Acetaminoph No Notes: Do M emoria en 325 MG / 10-06 not exceed l Hydrocodone 16:06: 4gm/day of [place] Bitartrate 00 acetaminop 10 MG Oral hen. (Same Tablet as: [place] 325/10) Acetaminoph No Notes: [place] en 325 MG / 10-06 (Same as: l Hydrocodone 16:06: [place] Chiquita nn Bitartrate 00 325/5) Do 5 MG Oral not exceed Tablet 4gm/day of acetaminop hen. Oxycodone No Notes: Memori a Hydrochlori 10-06 (Same as: l de 5 MG 16:06: Roxicodone Herm shelton Oral Tablet 00 ) magnesium No Notes: Memori a citrate 10-06 (Same as: l 11:31: Citrate of [place] 00 Magnesia) Mannitol No Notes: Memoria - (Same as: l 11:31: Osmitrol) "Infuse through 0.2 micron filter" Morphine No Notes: Memoria 10-06 (Same l 11:30: as:MORPhin [place] 00 e Sulfate) potassium No Notes: Memori a chloride 10-06 (Same as: l 09:00: KCL) Infuse no faster than 10 mEq/hr if given peripheral ly. NS 1,000 mL No 1,000 mL, M emoria 7-21 Rate: 75 l 08:44: ml/hr, Demar 00 Infuse over: 13.3 hr, Route: IV, [...] [place] 7-21 (Same as: l 04:06: Mylicon, [place] 00 Phazyme, Genasyme) Dexmedetomi No Notes: [place] dine 0.004 7-20 (Same as: l MG/ML 19:41: Precedex) Demar Injectable 00 Solution [Precedex] potassium No Notes: Memori a chloride 7-20 (Same as: l 08:30: Potassium Demar 00 Chloride) calcium No 3,000 mg, Memor ia gluconate + 7-20 30 mL, l Sodium 08:30: Route: [place] Chloride 00 IVPB, 0.9% IV 100 ONCE, mL Start date: 10/05/13 3:30:00, Stop date: 10/05/13 3:30:00 potassium No Notes: Memori a chloride 7-19 (Same as: l 12:00: Potassium Demar Chloride) magnesium No 2 gm, 50 [place] sulfate 7-19 mL, Route: l 11:25: IVPB, Drug [place] 00 form: INJ, ONCE, Start date: 10/04/13 6:25:00, Stop date: 10/04/13 6:25:00 Mannitol No Notes: Memoria 7-19 (Same as: l 10:09: Osmitrol) Demar 00 "Infuse through 0.2 micron filter" Mannitol No Notes: Memoria 7-19 (Same as: l 03:31: Osmitrol) Demar 00 "Infuse through 0.2 micron filter" Fentanyl No Notes: Memoria 7-19 (Same as: l 03:29: Sublimaze) [place] 00 Preservati ve free. Saline No Notes: Memoria Flush 0.9% 7-18 Same as: l 21:00: BD [place] Posiflush Sterile Saline No Notes: [facility] Flush 0.9% 7-18 Same as: l 16:13: BD Dem[place] 00 Posiflush Sterile dexmedetomi No Notes: [place] dine 4 7-18 (Same as: l microgram 14:03: Precedex) Her adams dexmedetomi No 50 mL, [place] dine 7-18 Rate: 5.79 l additive 13:47: ml/hr, Demar 200 00 Infuse microgram over: 8.6 [0.2 hr, Route: microgram/k IV, Dosing g/hr] + Weight Premix 115.8 kg, Diluent Total Sodium Volume: Chloride 50, Start 0.9% date: 10/03/13 8:47:00, Duration: 30 day, Stop date: 11/02/13 8:46:00 Captopril No Notes: Memori a 7-18 Give on l 13:00: empty [place] 00 stomach. 1 hour before meal. (Same As: Capoten) Fentanyl No Notes: Memoria 7-18 (Same as: l 09:54: Sublimaze) Demar 00 Preservati ve free. potassium No Notes: Memori a chloride 7-18 (Same as: l 07:43: Potassium [place] 00 Chloride) Fentanyl No 1,000 Memoria 7-18 microgram, l 05:45: 20 mL, [place] 00 Rate: Titrate as directed, Dosing Weight 115.8, kg, Route: IV, Total Volume: 20 mL, Start Date: 10/03/13 0:45:00, Duration: 30 day, Stop date: 11/02/13 0:44:00, Replace Every: 24 hr Mannitol No Notes: Memoria 7-18 (Same as: l 02:35: Osmitrol) "Infuse through 0.2 micron filter" calcium 2013- No 3,000 mg, Memor ia gluconate + 7-18 30 mL, l Sodium 00:33: Route: Demar Chloride 00 IVPB, 0.9% IV 150 ONCE, mL Dosing Weight 115.8, kg, Priority: STAT, Start date: 10/02/13 19:33:00, Stop date: 10/02/13 19:33:00 Calcium 2013- No 3,000 mg, Memor ia Gluconate 7-17 30 mL, l 23:42: Route: Dem[place] 00 IVPB, ONCE, Dosing Weight 115.8, kg, [...] before using. Give with food. (Same as:Saulo anthony Trandate) Compound ed Product - formulatio n not commercial ly available* * Ibuprofen No Notes: Memori a 20 MG/ML 7-17 (Same as: l Oral 17:16: Motrin [place] Suspension [facility] , Advil [facility] ) Take with food. pantoprazol No Notes: For Memoria e 7-17 IV push l 12:30: reconstitu te with 10 ml 0.9% sodium chloride and push over 2 minutes. (Same as: Protonix) potassium No Notes: Memori a chloride 7-17 (Same as: l 11:00: KCL) Demar 00 Infuse no faster than 10 mEq/hr if given peripheral ly. magnesium No 2 gm, 50 [place] sulfate 7-17 mL, Route: l 10:30: IVPB, Drug [place] 00 form: INJ, ONCE, Start date: 10/02/13 5:30:00, Stop date: 10/02/13 5:30:00 calcium No 3,000 mg, Memor ia gluconate + 7-17 30 mL, l Sodium 10:30: Route: [place] Chloride 00 IVPB, 0.9% IV 100 ONCE, mL Start date: 10/02/13 5:30:00, Stop date: 10/02/13 5:30:00 potassium No Notes: Memori a phosphate-s 7-17 (Same as: l odium 09:41: Neutra-Soniya Mauricio n phosphate 00 s) Each 250 mg-278 1.25 gm mg-164 mg pkt has oral powder 250mg phosphorou s. Mix w/2.5oz water and stir. Flagyl No Notes: Memoria 7-17 (Same as: l 01:00: Flagyl) [place] 00 cefepime No Notes: Memoria 7-16 (Same As: l 23:00: Maxipime) [place] 00 Vancomycin No Notes: Memor ia 7-16 (Same As: l 23:00: Vancocin) [place] 00 Vancomycin FOR IV SET ONLY heparin, No Notes: Memoria porcine 7-16 porcine l 21:00: heparin Demar 00 calcium No 3,000 mg, Memor ia gluconate + 7-16 30 mL, l Sodium 06:14: Route: [place] Chloride 00 IVPB, 0.9% IV 100 ONCE, mL Priority: STAT, Start date: 10/01/13 1:14:00, Stop date: 10/01/13 1:14:00 chlorhexidi No Notes: [place] ne 7-16 (Same As: l gluconate 05:00: Peridex) Herm shelton 1.2 MG/ML 00 Mouthwash [Peridex] Propofol 10 No Notes: If M emoria MG/ML 7-16 Diprivan - l Injectable 03:01: change Chiquita nn Suspension 00 bottle & tubing every 12 hr Per state nursing law propofol can only be given by a nurse if patient is intubated or being intubated (unless the nurse is a MANAGING DIRECTOR [employer]). Same as: Diprivan Omnipaque 2013-0 No 150 ml, Memor ia 300 7-16 Route: l 02:22: INTRAARTER [place] 00 IAL, Dosing Weight 115.8, kg, ONCE, Start date: 09/30/13 21:22:00, Stop date: 09/30/13 21:22:00 Pravastatin No 40 mg, [place] 7-16 Route: PO, l 02:00: Drug form: Demar 00 TAB, Bedtime, Dosing Weight 115.4, kg, Start date: 09/30/13 21:00:00, Duration: 30 day, Stop date: 10/29/13 21:00:00 potassium 2013-0 No Notes: Memori a chloride 7-16 (Same as: l 01:00: KCL) [place] 00 Infuse no faster than 10 mEq/hr if given peripheral ly. Nitroglycer No 200 Memori a in 7-15 microgram, l 23:38: Route: [place] 00 INTRAARTER IAL, ONCE, Dosing Weight 115.8, kg, Start date: 09/30/13 18:38:00, Stop date: 09/30/13 18:38:00 Pravastatin 2013-0 No Notes: [place] 7-15 (Same as: l 22:00: Pravachol) [place] 00 Sodium 2013-0 No 1,000 mL, Memori a Chloride 7-15 1,000 l 0.154 17:36: ml/hr, [place] MEQ/ML 00 Infuse Injectable Over: 1 Solution hr, Route: IV, ONCE, Priority: STAT, Dosing Weight 115.8 kg, Start date: 09/30/13 12:36:00, Duration: 1 doses or times, Stop date: 09/30/13 12:36:00 Nimodipine 2013-0 No Notes: Memor ia 3 MG/ML 7-15 (Same as l Oral 17:00: Nimodipine [place] Solution 00 oral suspension 30mg/ml) Instill dose into NG tube and then flush with 30ml of NS Protonix No 40 mg, 1 Memor ia 7-15 pkt, l 16:00: Route: PO, Demar 00 Drug form: GRAN/REC, Daily, Dosing Weight 115.4, kg, Start date: 09/30/13 11:00:00, Duration: 30 day, Stop date: 10/30/13 9:00:00 sennosides, No Notes: [place] HALF-WAY 7-15 (Same as: l 14:00: Senokot) Docusate No 100 mg, 1 [place] [...] 7-15 (Same as: l 14:00: BD Demar Posiflush) Docusate No Notes: Memoria Sodium 100 7-15 (Same as: l MG Oral 14:00: Colace) [place] Capsule 00 pantoprazol No Notes: [place] e 7-15 (Same as: l 14:00: Protonix) Levetiracet No Notes: [place] am 7-15 (Same l 14:00: as:Keppra) 00 Sodium No 1,000 mL, Memori a Chloride 7-15 1,000 l 0.154 07:18: ml/hr, [place] MEQ/ML 00 Infuse Injectable Over: 1 Solution hr, Route: IV, 1,000, Drug form: INJ, ONCE, Priority: STAT, Dosing Weight 115.4 kg, Start date: 09/30/13 2:18:00, Duration: 1 doses or times, Stop date: 09/30/13 2:18:00 potassium No Notes: Memori a chloride 7-15 (Same as: l 07:00: KCL) Infuse no faster than 10 mEq/hr if given peripheral ly. Albuterol Yes Notes: Memori a 0.833 MG/ML -15 (Same as: l / 05:00: Duoneb) Demar Ipratropium 00 [place] 0.167 MG/ML Inhalant Solution [DuoNeb] Nimodipine No Notes: Memor ia 7-15 (Same l 05:00: as:Nimotop 00 ) Morphine No Notes: Memoria 7-15 (Same l 04:03: as:MORPhin e Sulfate) Zofran No 4 mg, Memoria 7-15 Route: IV, l 03:59: Drug form: [place] 00 INJ, Q8H, Dosing Weight 115.4, kg, PRN Nausea, Start date: 09/29/13 22:59:00, Duration: 30 day, Stop date: 10/29/13 22:58:00 Tylenol No Notes: Memoria 7-15 (Same as: l 03:59: Tylenol) [place] 00 NS 1,000 mL No 1,000 mL, M emoria 15 Rate: 100 l 03:55: ml/hr, [place] 00 Infuse over: 10 hr, Route: IV, [...] times Regular No 7 unit, Memoria Insulin, 15 Route: l Human 100 03:55: SUB-Q, Mauricio n UNT/ML 00 PRN, Injectable Dosing Solution Weight 115.4, kg, PRN Abnormal Lab Result, Start date: 09/29/13 22:55:00, Duration: 30 day, Stop date: 10/29/13 22:54:00 Dextrose No 50 mL, Memoria 50% Syringe 7-15 Route: l 03:55: IVP, [place] 00 Dosing Weight 115.4, kg, PRN, PRN Abnormal Lab Result, Start date: 09/29/13 22:55:00, Duration: 30 day, Stop date: 10/29/13 22:54:00 Hydralazine No Notes: [place] 7-15 (Same as: l 03:55: Apresoline [place] 00 ) Regular No 60 units) [place] Insulin, 7-15 Stable for l Human 100 03:52: 28 days at rmann UNT/ML 00 room Injectable temperatur Solution [...] 0.9% 7-15 (Same as: l 03:52: BD [place] 00 Posiflush) Bisacodyl No Notes: Memori a 7-15 (Same As: l 03:52: Dulcolax, [place] 00 Bisco-Lax) Ondansetron No Notes: [place] 7-15 (Same as: l 03:52: Zofran) Labetalol No 10 mg, Memori a 7-15 Route: l 03:52: IVP, Demar 00 Q15Min, Dosing Weight 115.4, kg, PRN Hypertensi on, Start date: 09/29/13 22:52:00, Duration: 3 doses or times, Stop date: Limited # of times Sodium No 1,000 mL, Memori a Chloride 7-15 Rate: 75 l 0.154 03:52: ml/hr, [place] MEQ/ML 00 Infuse Injectable over: 13.3 Solution hr, Route: IV, Dosing Weight 115.4 kg, Total Volume: 1,000, Start date: 09/29/13 22:52:00, Stop date: 10/29/13 22:51:00 Morphine No Notes: Memoria 09-30 (Same l 03:52: as:MORPhin e Sulfate) fosphenytoi No Special Mem oria n 09-30 Instructio l 03:52: ns: (Loading Dose) Atorvastati Atorvastati No 1{table QD [...] dose 2020-01-01 Completed [facility] - 13:54:00 [facility] Afluria single dose Afluria single dose 2020-01-01 Completed [facility] - 13:54:00 [facility] Afluria single dose Afluria single dose 2020-01-01 Completed [facility] - 13:54:00 [facility] Afluria single dose Afluria single dose 2020-01-01 Completed [facility] - 13:54:00 [facility] Afluria single dose Afluria single dose 2020-01-01 Completed [facility] - 13:54:00 [facility] Afluria single dose Afluria single dose 2020-01-01 Completed [facility] - 13:54:00 [facility] Afluria single dose Afluria single dose 2020-01-01 Completed [facility] - 13:54:00 [facility] Afluria single dose Afluria single dose 2020-01-01 Completed [facility] - 13:54:00 [facility] Afluria single dose Afluria single dose 2020-01-01 Completed [facility] - 13:54:00 [facility] Afluria single dose Afluria single dose 2020-01-01 Completed [facility] - 13:54:00 [facility] Afluria single dose Afluria single dose 2020-01-01 Completed [facility] - 13:54:00 [facility] Afluria single dose Afluria single dose 2020-01-01 Completed [facility] - 13:54:00 [facility] Afluria single dose Afluria single dose 2020-01-01 Completed [facility] - 13:54:00 [facility] Afluria single dose Afluria single dose 2020-01-01 Completed [facility] - 13:54:00 [facility] Afluria single dose Afluria single dose 2020-01-01 Completed [facility] - 13:54:00 [facility] Afluria single dose Afluria single dose 2020-01-01 Completed [facility] - 13:54:00 [facility] Afluria single dose Afluria single dose 2020-01-01 Completed [facility] - 13:54:00 [facility] Afluria single dose Afluria single dose 2020-01-01 Completed [facility] - 13:54:00 [facility] Afluria single dose Afluria single dose 2020-01-01 Completed [facility] - 13:54:00 [facility] Afluria single dose Afluria single dose 2020-01-01 Completed [facility] - 13:54:00 [facility] Afluria single dose Afluria single dose 2020-01-01 Completed [facility] - 13:54:00 [facility] Afluria single dose Afluria single dose 2020-01-01 Completed [facility] - 13:54:00 [facility] Afluria single dose Afluria single dose 2020-01-01 Completed [facility] - 13:54:00 [facility] Afluria single dose Afluria single dose 2020-01-01 Completed [facility] - 13:54:00 [facility] pneumococcal 2017-11-01 Completed [facility] 23-valent vaccine 20:09:00 Demar influenza virus 2016-12-16 Completed [facility] vaccine, inactivated 16:50:00 José Luis peoples influenza virus 2015-12-10 Completed [facility] vaccine, inactivated 14:12:00 José Luis peoples influenza virus 2014-01-22 Completed [facility] vaccine, inactivated 14:47:00 José Luis peoples Vital Signs Vital Name Observation Time Observation Value Comments Source Systolic blood 2021-12-28 14:29:00 137 mm[Hg] [facility] pressure Medicine Diastolic blood 2021-12-28 14:29:00 89 mm[Hg] [facility] Medicine Heart rate 2021-12-28 14:29:00 75 /min [facility] Body temperature 2021-12-28 14:29:00 36.22 Tereza [facility] Respiratory rate 2021-12-28 14:29:00 18 /min [facility] Body height 2021-12-28 14:29:00 175.3 cm [facility] Body weight 2021-12-28 14:29:00 112.038 kg [facility] BMI 2021-12-28 14:29:00 36.48 kg/m2 [facility] height 2021-12-19 10:00:00 69 [in_i] [facility] weight 2021-12-19 10:00:00 242 [lb_av] [facility] temperature 2021-12-19 10:00:00 96.6 [degF] [facility] bmi 2021-12-19 10:00:00 35.73 kg/m2 [facility] blood pressure 2021-12-19 10:00:00 136 mm[Hg] [facility] - systolic [facility] blood pressure 2021-12-19 10:00:00 84 mm[Hg] [facility] - diastolic [facility] HEIGHT 2021-12-13 08:00:00 175.3 cm WEIGHT 2021-12-13 [...] kg Systolic blood 2021-11-14 15:25:00 118 mm[Hg] [facility] Medicine Diastolic blood 2021-11-14 15:25:00 78 mm[Hg] [facility] Medicine Heart rate 2021-11-14 15:25:00 67 /min [facility] Body temperature 2021-11-14 15:25:00 36.11 Tereza [facility] Respiratory rate 2021-11-14 15:25:00 16 /min [facility] Body height 2021-11-14 15:25:00 175.3 cm [facility] Body weight 2021-11-14 15:25:00 112.038 kg [facility] BMI 2021-11-14 15:25:00 36.48 kg/m2 [facility] Oxygen saturation in 2021-11-14 15:25:00 94 /min [facility] Arterial blood by [facility] Pulse oximetry Systolic blood 2021-08-25 15:31:00 120 mm[Hg] [facility] Diastolic blood 2021-08-25 15:31:00 93 mm[Hg] [facility]ive [facility]ity of [facility] [place] Heart rate 2021-08-25 15:31:00 76 /min [facility] Respiratory rate 2021-08-25 15:31:00 16 /min [facility] Oxygen saturation in 2021-08-25 15:31:00 97 /min [facility] Arterial blood by [facility] Pulse oximetry Branch Body temperature 2021-08-25 12:50:00 36.33 Tereza [facility] Body weight 2021-08-25 12:50:00 122.471 kg [facility] BMI 2021-08-25 12:50:00 39.87 kg/m2 [facility] Systolic blood 2021-08-22 21:26:00 113 mm[Hg] [facility] Diastolic blood 2021-08-22 21:26:00 73 mm[Hg] Unive rsity of [facility] Heart rate 2021-08-22 21:26:00 78 /min [facility] Body temperature 2021-08-22 21:26:00 36.78 Tereza [facility] Respiratory rate 2021-08-22 21:26:00 16 /min [facility] Oxygen saturation in 2021-08-22 21:26:00 95 /min University of Arterial blood by [employer] cheryl Pulse oximetry Branch Body height 2021-08-13 11:05:00 175.3 cm [facility] Body weight 2021-08-13 11:05:00 122.471 kg [facility] BMI 2021-08-13 11:05:00 39.87 kg/m2 [facility] Systolic blood 2021-07-26 17:21:00 146 mm[Hg] [facility]iver [facility] Diastolic blood 2021-07-26 17:21:00 95 mm[Hg] [facility]ive [facility]ity of [facility] Heart rate 2021-07-26 17:21:00 71 /min [facility] Respiratory rate 2021-07-26 17:21:00 18 /min [facility] Oxygen saturation in 2021-07-26 17:21:00 93 /min [facility] Arterial blood by [place] [employer] cheryl Pulse oximetry Branch Body temperature 2021-07-26 14:32:00 37.17 Tereza [facility] Body height 2021-07-26 14:32:00 175.3 cm [facility] Body weight 2021-07-26 14:32:00 122.471 kg [facility] BMI 2021-07-26 14:32:00 39.87 kg/m2 [facility] Systolic blood 2021-07-14 02:00:00 158 mm[Hg] [facility] Diastolic blood 2021-07-14 02:00:00 94 mm[Hg] [facility] Heart rate 2021-07-14 02:00:00 59 /min [facility] Respiratory rate 2021-07-14 02:00:00 16 /min [facility] Oxygen saturation in 2021-07-14 02:00:00 93 /min [facility] Arterial blood by [place] [employer] cheryl Pulse oximetry Branch Body temperature 2021-07-13 23:38:00 36.44 Tereza [facility] Body height 2021-07-13 23:38:00 175.3 cm [facility] Body weight 2021-07-13 23:38:00 122.471 kg [facility] BMI 2021-07-13 23:38:00 39.87 kg/m2 [facility] Systolic blood 2021-06-08 18:00:00 118 mm[Hg] [facility] Diastolic blood 2021-06-08 18:00:00 80 mm[Hg] [facility]ity [facility] Heart rate 2021-06-08 18:00:00 73 /min [facility] Respiratory rate 2021-06-08 18:00:00 20 /min [facility] Oxygen saturation in 2021-06-08 17:00:00 95 /min [facility] of Arterial blood by [facility] Pulse oximetry Branch Body temperature 2021-06-08 16:22:00 35.83 Tereza [facility] Body height 2021-06-08 16:19:00 175.3 cm [facility] Body weight 2021-06-08 16:19:00 118.389 kg [facility] BMI 2021-06-08 16:19:00 38.54 kg/m2 [facility] Systolic blood 2021-06-07 13:13:00 123 mm[Hg] Univer [facility] Diastolic blood 2021-06-07 13:13:00 72 mm[Hg] Unive [facility]ity of [facility] Heart rate 2021-06-07 13:13:00 79 /min [facility] Body temperature 2021-06-07 13:13:00 36.89 Tereza [facility] Respiratory rate 2021-06-07 13:13:00 18 /min [facility] Body height 2021-06-07 13:13:00 175.3 cm [facility] Body weight 2021-06-07 13:13:00 118.389 kg [facility] BMI 2021-06-07 13:13:00 38.54 kg/m2 [facility] Oxygen saturation in 2021-06-07 13:13:00 96 /min University Arterial blood by [facility] Pulse oximetry Branch height 2020-03-09 14:20:00 69 [in_i] [facility] weight 2020-03-09 14:20:00 265 [lb_av] [facility] temperature 2020-03-09 14:20:00 98 [degF] [facility] bmi 2020-03-09 14:20:00 39.13 kg/m2 [facility] blood pressure 2020-03-09 14:20:00 130 mm[Hg] [facility] - systolic [facility] blood pressure 2020-03-09 14:20:00 74 mm[Hg] [facility] - diastolic [facility] [facility] height 2020-02-16 14:00:00 69 [in_i] [facility] weight 2020-02-16 14:00:00 260 [lb_av] [facility] temperature 2020-02-16 14:00:00 98.4 [degF] [facility] bmi 2020-02-16 14:00:00 38.39 kg/m2 [facility] blood pressure 2020-02-16 14:00:00 135 mm[Hg] [facility] blood pressure 2020-02-16 14:00:00 84 mm[Hg] [facility] - diastolic [facility] Systolic blood 2019 16:08:00 122 mm[Hg] Univer sity of pressure [facility] Diastolic blood 2019 16:08:00 79 mm[Hg] Unive rsity of pressure [facility] Heart rate 2019 16:08:00 59 /min [facility] Body temperature 2019 16:08:00 37.06 [facility] 2019 16:08:00 18 /min [facility] Body height 2019 16:08:00 175.3 cm [facility] Body weight 2019 16:08:00 120.203 kg [facility] BMI 2019 16:08:00 39.13 kg/m2 [facility] Oxygen saturation in 2019 16:08:00 96 /min [facility] blood by [facility] Pulse oximetry Branch Systolic blood 2019-05-22 20:44:00 115 mm[Hg] [facility]ity of pressure [facility] Diastolic blood 2019-05-22 20:44:00 71 mm[Hg] [facility]ive rsity of pressure [facility] Heart rate 2019-05-22 20:44:00 78 /min [facility] Body temperature 2019-05-22 20:44:00 36.22 [facility] Respiratory rate 2019-05-22 20:44:00 18 /min [facility] Body height 2019-05-22 20:44:00 175.3 cm [facility] Body weight 2019-05-22 20:44:00 116.847 kg [facility] BMI 2019-05-22 20:44:00 38.04 kg/m2 [facility] Oxygen saturation in 2019-05-22 20:44:00 96 /min [facility] blood by [facility] Pulse oximetry Branch Systolic blood 2019-04-08 21:46:00 123 mm[Hg] [facility] pressure [facility] Diastolic blood 2019-04-08 21:46:00 58 mm[Hg] [facility]ive rsity of pressure [facility] Heart rate 2019-04-08 21:46:00 75 /min [facility] Respiratory rate 2019-04-08 21:46:00 16 /min [facility] Oxygen saturation in 2019-04-08 21:46:00 91 /min [facility] Arterial blood by [facility] Pulse oximetry Branch Body temperature 2019-04-08 19:49:00 38.39 [facility] Body weight 2019-04-08 19:00:00 127.007 kg [facility] BMI 2019-04-08 19:00:00 41.35 kg/m2 [facility] Systolic blood 2019-04-01 16:52:00 117 mm[Hg] Univer sity of pressure [facility] Diastolic blood 2019-04-01 16:52:00 71 mm[Hg] Unive rsity of pressure [facility] Heart rate 2019-04-01 16:52:00 80 /min [facility] Body temperature 2019-04-01 16:52:00 36.06 Tereza [facility] Respiratory rate 2019-04-01 16:52:00 18 /min [facility] Body height 2019-04-01 16:52:00 175.3 cm [facility] Body weight 2019-04-01 16:52:00 127.007 kg [facility] BMI 2019-04-01 16:52:00 41.35 kg/m2 [facility] Oxygen saturation in 2019-04-01 16:52:00 96 /min [facility] Arterial blood by [facility] Pulse oximetry Branch Systolic blood 2018-11-12 19:52:00 125 mm[Hg] Univer sity of pressure [facility] Diastolic blood 2018-11-12 19:52:00 83 mm[Hg] Unive rsity of pressure [facility] Heart rate 2018-11-12 19:52:00 80 /min [facility] Body temperature 2018-11-12 19:52:00 36.61 Tereza [facility] Respiratory rate 2018-11-12 19:52:00 18 /min [facility] in 2018-11-12 19:52:00 95 /min [facility] Arterial blood by [facility] Pulse oximetry Branch Systolic blood 2021-12-14 11:10:00 122 mm[Hg] [facility] Diastolic blood 2021-12-14 11:10:00 59 mm[Hg] [facility] Heart rate 2021-12-14 11:10:00 74 /min [facility] Body temperature 2021-12-14 11:10:00 35.83 Tereza [facility] Respiratory rate 2021-12-14 11:10:00 18 /min [facility] Oxygen saturation in 2021-12-14 11:10:00 94 /min [facility] Arterial blood by Medical Ce [facility]ter Pulse oximetry Body height 2021-12-13 08:00:00 175.3 cm [facility] Body weight 2021-12-13 08:00:00 109.861 kg [facility] BMI 2021-12-13 08:00:00 35.77 kg/m2 [facility] Systolic (mm Hg) 2020-10-26 15:31:00 [facility] Diastolic (mm Hg) 2020-10-26 15:31:00 [facility] [place] Heart Rate 2020-10-26 15:31:00 [facility] [place] Respitory Rate 2020-10-26 15:31:00 [facility] Height 2020-10-26 15:31:00 175.26 cm [facility] BMI Calculated 2020-10-26 15:31:00 [facility] Weight 2020-10-26 15:31:00 [facility] Systolic (mm Hg) 2020-08-30 19:03:00 [facility] Diastolic (mm Hg) 2020-08-30 19:03:00 [facility] Heart Rate 2020-08-30 19:03:00 [facility] Respitory Rate 2020-08-30 19:03:00 [facility] [place] Height 2020-08-30 19:03:00 175.26 cm [facility] Weight 2020-08-30 19:03:00 [facility] BMI Calculated 2020-08-30 19:03:00 [facility] Systolic (mm Hg) 2020-03-16 17:36:00 [facility] Diastolic (mm Hg) 2020-03-16 17:36:00 [facility] Heart Rate 2020-03-16 17:36:00 [facility] Respitory Rate 2020-03-16 17:36:00 [facility] Height 2020-03-16 17:36:00 175.26 cm [facility] BMI Calculated 2020-03-16 17:36:00 [facility] [place] Weight 2020-03-16 17:36:00 [facility] Systolic (mm Hg) 2019-12-17 14:56:00 [facility] Diastolic (mm Hg) 2019-12-17 14:56:00 [facility] Heart Rate 2019-12-17 14:56:00 [facility] Respitory Rate 2019-12-17 14:56:00 [facility] Systolic (mm Hg) 2019-09-16 17:25:00 [facility] [place] Diastolic (mm Hg) 2019-09-16 17:25:00 [facility] Heart Rate 2019-09-16 17:25:00 [facility] Respitory Rate 2019-09-16 17:25:00 [facility] [place] Height 2019-09-16 17:25:00 175.26 cm [facility] BMI Calculated 2019-09-16 17:25:00 [facility] [place] Weight 2019-09-16 17:25:00 [facility] Systolic (mm Hg) 2019-08-26 14:32:00 [facility] Diastolic (mm Hg) 2019-08-26 14:32:00 [facility] Heart Rate 2019-08-26 14:32:00 [facility] Respitory Rate 2019-08-26 14:32:00 [facility] Temperature Oral (F) 2019-08-26 14:32:00 98.8 F [facility] Height 2019-08-26 14:32:00 175.26 cm [facility] BMI Calculated 2019-08-26 14:32:00 [facility] Weight 2019-08-26 14:32:00 [facility] Heart Rate 2019-02-21 18:42:00 [facility] Respitory Rate 2019-02-21 18:42:00 [facility] Systolic (mm Hg) 2019-02-21 18:42:00 [facility] Diastolic (mm Hg) 2019-02-21 18:42:00 [facility] Height 2019-02-21 17:22:00 175.26 cm [facility] Heart Rate 2019-02-21 13:46:00 [facility] Respitory Rate 2019-02-21 13:46:00 [facility] Systolic (mm Hg) 2019-02-21 13:46:00 [facility] [place] Diastolic (mm Hg) 2019-02-21 13:46:00 [facility] Heart Rate 2019-02-21 02:00:00 [facility] Respitory Rate 2019-02-21 02:00:00 [facility] Systolic (mm Hg) 2019-02-21 02:00:00 [facility] Diastolic (mm Hg) 2019-02-21 02:00:00 [facility] [place] Temperature Oral (F) 2019-02-18 01:30:00 97.4 F [facility] Temperature Oral (F) 2019-02-09 19:21:00 97.8 F [facility] Height 2019-02-08 04:19:00 175.26 cm [facility] Height 2019-02-08 04:18:00 175.26 cm [facility] Weight 2019-02-08 04:18:00 [facility] BMI Calculated 2019-02-08 04:18:00 [facility] Temperature Oral (F) 2019-02-07 22:00:00 98.6 F [facility] Heart Rate 2019-02-07 22:00:00 [facility] Respitory Rate 2019-02-07 22:00:00 [facility] [place] Systolic (mm Hg) 2019-02-07 22:00:00 [facility] Diastolic (mm Hg) 2019-02-07 22:00:00 [facility] Temperature Oral (F) 2019-02-07 18:00:00 98.4 F [facility] Heart Rate 2019-02-07 18:00:00 [facility] Respitory Rate 2019-02-07 18:00:00 [facility] [place] Systolic (mm Hg) 2019-02-07 18:00:00 [facility] Diastolic (mm Hg) 2019-02-07 18:00:00 [facility] [place] Temperature Oral (F) 2019-02-07 14:00:00 98.3 F [facility] [place] Heart Rate 2019-02-07 14:00:00 [facility] Respitory Rate 2019-02-07 14:00:00 [facility] [place] Systolic (mm Hg) 2019-02-07 14:00:00 [facility] [place] Diastolic (mm Hg) 2019-02-07 14:00:00 [facility] [place] Height 2019-02-06 11:00:00 175.26 cm [facility] Height 2019-02-05 11:00:00 175.26 cm [facility] Height 2019-02-04 08:57:00 175.26 cm [facility] Weight 2019-02-04 08:57:00 [facility] BMI Calculated 2019-02-04 08:57:00 [facility] BMI Calculated 2018-09-27 20:42:00 [facility] [place] Height 2018-09-27 20:42:00 175.26 cm [facility] Weight 2018-09-27 20:42:00 [facility] [place] Heart Rate 2018-09-27 20:42:00 [facility] [place] [place] Systolic (mm Hg) 2018-09-27 20:42:00 [facility] [place] Diastolic (mm Hg) 2018-09-27 20:42:00 [facility] [place] Respitory Rate 2018-09-24 16:36:00 [facility] [place] Systolic (mm Hg) 2018-09-24 16:36:00 [facility] Diastolic (mm Hg) 2018-09-24 16:36:00 [facility] [place] Systolic (mm Hg) 2018-09-24 12:44:00 [facility] [place] Diastolic (mm Hg) 2018-09-24 12:44:00 [facility] [place] Respitory Rate 2018-09-24 12:44:00 [facility] Systolic (mm Hg) 2018-09-24 09:00:00 [facility] Diastolic (mm Hg) 2018-09-24 09:00:00 [facility] [place] Respitory Rate 2018-09-24 09:00:00 [facility] [place] Weight 2018-09-24 05:36:00 [facility] Height 2018-09-24 05:36:00 175.26 cm [facility] BMI Calculated 2018-09-24 05:36:00 [facility] [place] Temperature Oral (F) 2018-08-04 17:50:00 98.2 F [facility] Systolic (mm Hg) 2018-08-04 17:50:00 [facility] [place] Diastolic (mm Hg) 2018-08-04 17:50:00 [facility] Respitory Rate 2018-08-04 17:50:00 [facility] [place] Heart Rate 2018-08-04 17:50:00 [facility] [place] Systolic (mm Hg) 2018-08-04 13:21:00 [facility] Diastolic (mm Hg) 2018-08-04 13:21:00 [facility] [place] Heart Rate 2018-08-04 13:21:00 [facility] [place] Respitory Rate 2018-08-04 13:21:00 [facility] Temperature Oral (F) 2018-08-04 13:21:00 97.6 F [facility] Systolic (mm Hg) 2018-08-04 08:56:00 [facility] Diastolic (mm Hg) 2018-08-04 08:56:00 [facility] Respitory Rate 2018-08-04 08:56:00 [facility] [place] Heart Rate 2018-08-04 08:56:00 [facility] Temperature Oral (F) 2018-08-04 08:56:00 97.7 F [facility] BMI Calculated 2018-08-03 10:26:00 [facility] [place] Weight 2018-08-03 10:26:00 [facility] Height 2018-08-03 10:26:00 175.26 cm [facility] Weight 2018-08-02 20:55:00 [facility] BMI Calculated 2018-08-02 20:55:00 [facility] [place] Height 2018-08-02 20:55:00 172.72 cm [facility] BMI Calculated 2018-01-25 18:50:00 [facility] Weight 2018-01-25 18:50:00 [facility] Height 2018-01-25 18:50:00 175.26 cm [facility] Heart Rate 2018-01-25 18:50:00 [facility] Temperature Oral (F) 2018-01-25 18:50:00 98.1 F [facility] Systolic (mm Hg) 2018-01-25 18:50:00 [facility] Diastolic (mm Hg) 2018-01-25 18:50:00 [facility] [place] Systolic (mm Hg) 2017-11-01 17:17:00 [facility] Diastolic (mm Hg) 2017-11-01 17:17:00 [facility] Temperature Oral (F) 2017-11-01 17:17:00 98.1 F [facility] Heart Rate 2017-11-01 17:17:00 [facility] Respitory Rate 2017-11-01 17:17:00 [facility] [place] Systolic (mm Hg) 2017-11-01 13:43:00 [facility] Diastolic (mm Hg) 2017-11-01 13:43:00 [facility] [place] Heart Rate 2017-11-01 13:43:00 [facility] Temperature Oral (F) 2017-11-01 13:43:00 97.2 F [facility] Respitory Rate 2017-11-01 13:43:00 [facility] [place] Diastolic (mm Hg) 2017-11-01 08:23:00 [facility] Systolic (mm Hg) 2017-11-01 08:23:00 [facility] Temperature Oral (F) 2017-11-01 08:23:00 98.1 F [facility] Heart Rate 2017-11-01 08:23:00 [facility] Respitory Rate 2017-11-01 08:23:00 [facility] BMI Calculated 2017-11-01 06:38:00 [facility] [place] Weight 2017-11-01 06:38:00 [facility] Height 2017-11-01 06:38:00 175.26 cm [facility] Weight 2017-11-01 00:25:00 [facility] Temperature Oral (F) 2017-06-29 01:08:00 98.0 F [facility] Temperature Oral (F) 2017-06-28 20:19:00 96.7 F [facility] Systolic (mm Hg) 2017-06-28 20:00:00 [facility] [place] Diastolic (mm Hg) 2017-06-28 20:00:00 [facility] Respitory Rate 2017-06-28 20:00:00 [facility] Temperature Oral (F) 2017-06-28 16:48:00 97.9 F [facility] Respitory Rate 2017-06-28 15:00:00 [facility] Systolic (mm Hg) 2017-06-28 15:00:00 [facility] Diastolic (mm Hg) 2017-06-28 15:00:00 [facility] [place] Weight 2017-06-28 14:00:00 [facility] [place] Systolic (mm Hg) 2017-06-28 13:00:00 [facility] [place] Diastolic (mm Hg) 2017-06-28 13:00:00 [facility] [place] Respitory Rate 2017-06-28 13:00:00 [facility] [place] Weight 2017-06-27 14:00:00 [facility] Height 2017-06-23 23:38:00 175.26 cm [facility] Weight 2017-06-23 23:38:00 [facility] BMI Calculated 2017-06-23 23:38:00 [facility] Systolic (mm Hg) 2016-12-17 00:10:00 [facility] Diastolic (mm Hg) 2016-12-17 00:10:00 [facility] [place] Temperature Oral (F) 2016-12-17 00:10:00 98.2 F [facility] Heart Rate 2016-12-17 00:10:00 [facility] Respitory Rate 2016-12-17 00:10:00 [facility] Temperature Oral (F) 2016-12-16 20:29:00 97 F [facility] Heart Rate 2016-12-16 20:29:00 [facility] Respitory Rate 2016-12-16 20:29:00 [facility] [place] Systolic (mm Hg) 2016-12-16 20:29:00 [facility] [place] Diastolic (mm Hg) 2016-12-16 20:29:00 [facility] Systolic (mm Hg) 2016-12-16 16:36:00 [facility] [place] Diastolic (mm Hg) 2016-12-16 16:36:00 [facility] Temperature Oral (F) 2016-12-16 16:36:00 97 F [facility] Heart Rate 2016-12-16 16:36:00 [facility] Respitory Rate 2016-12-16 16:36:00 [facility] Height 2016-12-16 11:17:00 175.26 cm [facility] BMI Calculated 2016-12-16 11:17:00 [facility] [place] Weight 2016-12-16 11:17:00 [facility] Weight 2016-12-16 01:22:00 [facility] Height 2016-12-16 01:22:00 175.26 cm [facility] BMI Calculated 2016-12-16 01:22:00 [facility] [place] Respitory Rate 2016-07-11 13:30:00 [facility] Diastolic (mm Hg) 2016-07-11 12:15:00 [facility] [place] Systolic (mm Hg) 2016-07-11 12:15:00 [facility] Respitory Rate 2016-07-11 12:15:00 [facility] Heart Rate 2016-07-11 12:15:00 [facility] Diastolic (mm Hg) 2016-07-11 01:12:00 [facility] [place] Systolic (mm Hg) 2016-07-11 01:12:00 [facility] [place] Heart Rate 2016-07-11 01:12:00 [facility] Respitory Rate 2016-07-11 01:12:00 [facility] [place] Heart Rate 2016-07-10 18:30:00 [facility] Systolic (mm Hg) 2016-07-10 18:30:00 [facility] Diastolic (mm Hg) 2016-07-10 18:30:00 [facility] [place] Weight 2016-07-08 00:17:00 [facility] Temperature Oral (F) 2016-07-04 19:25:00 98.3 F [facility] Temperature Oral (F) 2016-07-04 12:30:00 97.6 F [facility] Weight 2016-06-30 22:53:00 [facility] Height 2016-06-30 21:59:00 175.26 cm [facility] Temperature Oral (F) 2016-06-29 12:15:00 97 F [facility] Height 2016-06-26 21:48:00 175.26 cm [facility] Weight 2016-06-23 14:55:00 [facility] Height 2016 21:45:00 175.26 cm [facility] BMI Calculated 2016 21:45:00 [facility] [place] Systolic (mm Hg) 2016-05-02 15:03:00 [facility] Diastolic (mm Hg) 2016-05-02 15:03:00 [facility] Heart Rate 2016-05-02 15:03:00 [facility] Respitory Rate 2016-05-02 15:03:00 [facility] Temperature Oral (F) 2016-04-25 23:42:00 98.4 F [facility] Systolic (mm Hg) 2016-04-25 23:42:00 [facility] Diastolic (mm Hg) 2016-04-25 23:42:00 [facility] [place] Respitory Rate 2016-04-25 23:42:00 [facility] Heart Rate 2016-04-25 23:42:00 [facility] Systolic (mm Hg) 2016-04-25 22:20:00 [facility] [place] Diastolic (mm Hg) 2016-04-25 22:20:00 [facility] [place] Heart Rate 2016-04-25 22:20:00 [facility] Respitory Rate 2016-04-25 22:20:00 [facility] [place] BMI Calculated 2016-04-25 20:20:00 [facility] [place] Weight 2016-04-25 20:20:00 [facility] Height 2016-04-25 20:20:00 175.26 cm [facility] Temperature Oral (F) 2016-04-25 20:20:00 98.3 F [facility] Heart Rate 2016-04-25 20:20:00 [facility] Respitory Rate 2016-04-25 20:20:00 [facility] [place] Systolic (mm Hg) 2016-04-25 20:20:00 [facility] Diastolic (mm Hg) 2016-04-25 20:20:00 [facility] [place] Respitory Rate 2016-04-09 00:31:00 [facility] [place] Heart Rate 2016-04-09 00:31:00 [facility] Temperature Oral (F) 2016-04-09 00:31:00 98.2 F [facility] Systolic (mm Hg) 2016-04-09 00:31:00 [facility] [place] Diastolic (mm Hg) 2016-04-09 00:31:00 [facility] Weight 2016-04-08 20:43:00 [facility] BMI Calculated 2016-04-08 20:43:00 [facility] Height 2016-04-08 20:43:00 175.26 cm [facility] Systolic (mm Hg) 2016-04-08 20:43:00 [facility] [place] Diastolic (mm Hg) 2016-04-08 20:43:00 [facility] Temperature Oral (F) 2016-04-08 20:43:00 98.0 F [facility] Respitory Rate 2016-04-08 20:43:00 [facility] Heart Rate 2016-04-08 20:43:00 [facility] Respitory Rate 2016-04-01 04:13:00 [facility] [place] Systolic (mm Hg) 2016-04-01 04:13:00 [facility] Diastolic (mm Hg) 2016-04-01 04:13:00 [facility] Temperature Oral (F) 2016-04-01 04:13:00 98.1 F [facility] Respitory Rate 2016-04-01 01:34:00 [facility] Systolic (mm Hg) 2016-04-01 01:34:00 [facility] Diastolic (mm Hg) 2016-04-01 01:34:00 [facility] Systolic (mm Hg) 2016-04-01 01:24:00 [facility] [place] Diastolic (mm Hg) 2016-04-01 01:24:00 [facility] [place] Respitory Rate 2016-04-01 01:10:00 [facility] [place] Heart Rate 2016-04-01 00:44:00 [facility] Weight 2016-03-31 21:13:00 [facility] BMI Calculated 2016-03-31 21:13:00 [facility] Height 2016-03-31 21:13:00 175.26 cm [facility] Temperature Oral (F) 2016-03-31 21:13:00 97.7 F [facility] Heart Rate 2016-03-31 21:13:00 [facility] Diastolic (mm Hg) 2015-12-30 18:30:00 [facility] [place] Heart Rate 2015-12-30 18:30:00 [facility] Systolic (mm Hg) 2015-12-30 18:30:00 [facility] Respitory Rate 2015-12-30 18:30:00 [facility] Heart Rate 2015-12-30 12:30:00 [facility] Diastolic (mm Hg) 2015-12-30 12:30:00 [facility] [place] Respitory Rate 2015-12-30 12:30:00 [facility] Systolic (mm Hg) 2015-12-30 12:30:00 [facility] [place] Heart Rate 2015-12-30 01:00:00 [facility] [place] Systolic (mm Hg) 2015-12-30 01:00:00 [facility] Respitory Rate 2015-12-30 01:00:00 [facility] Diastolic (mm Hg) 2015-12-30 01:00:00 [facility] [place] Temperature Oral (F) 2015-12-23 13:00:00 97.9 F [facility] Temperature Oral (F) 2015-12-21 13:15:00 98 F [facility] Temperature Oral (F) 2015-12-16 18:04:00 98.3 F [facility] Heart Rate 2015-12-10 16:35:00 [facility] Temperature Oral (F) 2015-12-10 16:35:00 98.3 F [facility] Respitory Rate 2015-12-10 16:35:00 [facility] Systolic (mm Hg) 2015-12-10 16:35:00 [facility] [place] Diastolic (mm Hg) 2015-12-10 16:35:00 [facility] [place] Systolic (mm Hg) 2015-12-10 13:05:00 [facility] [place] Diastolic (mm Hg) 2015-12-10 13:05:00 [facility] [place] Temperature Oral (F) 2015-12-10 13:05:00 97.9 F [facility] Heart Rate 2015-12-10 13:05:00 [facility] Respitory Rate 2015-12-10 13:05:00 [facility] Systolic (mm Hg) 2015-12-10 08:12:00 [facility] [place] Diastolic (mm Hg) 2015-12-10 08:12:00 [facility] Respitory Rate 2015-12-10 08:12:00 [facility] Heart Rate 2015-12-10 08:12:00 [facility] Temperature Oral (F) 2015-12-10 08:12:00 98.2 F [facility] BMI Calculated 2015-12-09 21:46:00 [facility] Weight 2015-12-09 21:46:00 [facility] Height 2015-12-09 21:46:00 175.26 cm [facility] Height 2015-12-09 12:50:00 175.26 cm [facility] Weight 2015-12-09 12:50:00 [facility] BMI Calculated 2015-12-09 12:50:00 [facility] [place] BMI Calculated 2015-12-08 15:40:00 [facility] [place] Weight 2015-12-08 15:40:00 [facility] Height 2015-12-08 15:40:00 175.2 cm [facility] Height 2015-11-24 13:01:00 175.26 cm [facility] Height 2015-11-10 02:14:00 175.26 cm [facility] Weight 2015-11-10 02:14:00 [facility] BMI Calculated 2015-11-10 02:14:00 [facility] Systolic (mm Hg) 2015-08-20 18:46:00 [facility] Diastolic (mm Hg) 2015-08-20 18:46:00 [facility] Respitory Rate 2015-08-20 18:46:00 [facility] [place] Systolic (mm Hg) 2015-08-20 17:45:00 [facility] Diastolic (mm Hg) 2015-08-20 17:45:00 [facility] [place] Respitory Rate 2015-08-20 17:45:00 [facility] [place] Respitory Rate 2015-08-20 17:30:00 [facility] [place] Systolic (mm Hg) 2015-08-20 17:30:00 [facility] Diastolic (mm Hg) 2015-08-20 17:30:00 [facility] Weight 2015-08-20 12:06:00 [facility] BMI Calculated 2015-08-20 12:06:00 [facility] [place] Height 2015-08-20 12:06:00 175.26 cm [facility] Heart Rate 2015-08-20 12:06:00 [facility] Height 2015-08-20 12:00:00 175.26 cm [facility] BMI Calculated 2015-08-20 12:00:00 [facility] [place] Weight 2015-08-20 12:00:00 [facility] Systolic (mm Hg) 2015-08-06 18:00:00 [facility] Diastolic (mm Hg) 2015-08-06 18:00:00 [facility] Respitory Rate 2015-08-06 18:00:00 [facility] [place] Heart Rate 2015-08-06 18:00:00 [facility] Systolic (mm Hg) 2015-08-06 17:45:00 [facility] [place] Diastolic (mm Hg) 2015-08-06 17:45:00 [facility] Respitory Rate 2015-08-06 17:45:00 [facility] Heart Rate 2015-08-06 17:45:00 [facility] Systolic (mm Hg) 2015-08-06 17:30:00 [facility] [place] Diastolic (mm Hg) 2015-08-06 17:30:00 [facility] Respitory Rate 2015-08-06 17:30:00 [facility] [place] Heart Rate 2015-08-06 17:30:00 [facility] BMI Calculated 2015-08-06 13:00:00 [facility] [place] Height 2015-08-06 13:00:00 175.26 cm [facility] Weight 2015-08-06 13:00:00 [facility] Systolic (mm Hg) 2015-08-02 16:45:00 [facility] Diastolic (mm Hg) 2015-08-02 16:45:00 [facility] [place] Respitory Rate 2015-08-02 16:45:00 [facility] [place] Systolic (mm Hg) 2015-08-02 16:30:00 [facility] [place] Diastolic (mm Hg) 2015-08-02 16:30:00 [facility] Respitory Rate 2015-08-02 16:30:00 [facility] Respitory Rate 2015-08-02 16:15:00 [facility] [place] Systolic (mm Hg) 2015-08-02 16:15:00 [facility] Diastolic (mm Hg) 2015-08-02 16:15:00 [facility] [place] BMI Calculated 2015-08-02 13:23:00 [facility] [place] Weight 2015-08-02 13:23:00 [facility] Height 2015-08-02 13:23:00 172.72 cm [facility] BMI Calculated 2015-08-02 12:20:00 [facility] [place] Weight 2015-08-02 12:20:00 [facility] [place] Height 2015-08-02 12:20:00 175.26 cm [facility] [place] Respitory Rate 2015-06-29 21:53:00 [facility] Heart Rate 2015-06-29 21:53:00 [facility] Systolic (mm Hg) 2015-06-29 21:53:00 [facility] [place] Diastolic (mm Hg) 2015-06-29 21:53:00 [facility] Diastolic (mm Hg) 2015-06-29 12:30:00 [facility] Respitory Rate 2015-06-29 12:30:00 [facility] [place] Systolic (mm Hg) 2015-06-29 12:30:00 [facility] [place] Heart Rate 2015-06-29 12:30:00 [facility] [place] Diastolic (mm Hg) 2015-06-29 05:08:00 [facility] [place] Systolic (mm Hg) 2015-06-29 05:08:00 [facility] [place] Respitory Rate 2015-06-29 05:08:00 [facility] [place] Heart Rate 2015-06-29 05:08:00 [facility] [place] Temperature Oral (F) 2015-06-29 05:08:00 97.1 F [facility] [place] Temperature Oral (F) 2015-06-28 21:00:00 98.3 F [facility] Weight 2015-06-27 00:04:00 [facility] [place] Temperature Oral (F) 2015-06-26 05:00:00 97.6 F [facility] [place] BMI Calculated 2015-06-09 16:51:00 [facility] [place] Height 2015-06-09 16:51:00 175.26 cm [facility] [place] Weight 2015-06-09 16:51:00 [facility] [place] Systolic (mm Hg) 2015-05-24 14:52:00 [facility] Diastolic (mm Hg) 2015-05-24 14:52:00 [facility] [place] BMI Calculated 2015-05-24 14:52:00 [facility] [place] Weight 2015-05-24 14:52:00 [facility] Height 2015-05-24 14:52:00 175.26 cm [facility] Heart Rate 2015-05-24 14:52:00 [facility] [place] Respitory Rate 2015-05-24 14:52:00 [facility] [place] Height 2015-05-11 21:20:00 175.26 cm [facility] [place] Weight 2015-05-11 21:20:00 [facility] [place] BMI Calculated 2015-05-11 21:20:00 [facility] Respitory Rate 2015-05-11 21:20:00 [facility] [place] Heart Rate 2015-05-11 21:20:00 [facility] Systolic (mm Hg) 2015-05-11 21:20:00 [facility] [place] Diastolic (mm Hg) 2015-05-11 21:20:00 [facility] Height 2015-04-28 19:01:00 175.26 cm [facility] [place] BMI Calculated 2015-04-28 19:01:00 [facility] Weight 2015-04-28 19:01:00 [facility] [place] Temperature Oral (F) 2015-04-28 19:01:00 98.2 F [facility] [place] Respitory Rate 2015-04-28 19:01:00 [facility] [place] Heart Rate 2015-04-28 19:01:00 [facility] Systolic (mm Hg) 2015-04-28 19:01:00 [facility] Diastolic (mm Hg) 2015-04-28 19:01:00 [facility] Heart Rate 2015-04-27 18:45:00 [facility] [place] Respitory Rate 2015-04-27 18:45:00 [facility] Systolic (mm Hg) 2015-04-27 18:45:00 [facility] Diastolic (mm Hg) 2015-04-27 18:45:00 [facility] Heart Rate 2015-04-27 17:45:00 [facility] Respitory Rate 2015-04-27 17:45:00 [facility] [place] Systolic (mm Hg) 2015-04-27 17:45:00 [facility] Diastolic (mm Hg) 2015-04-27 17:45:00 [facility] Heart Rate 2015-04-27 17:15:00 [facility] [place] Respitory Rate 2015-04-27 17:15:00 [facility] Systolic (mm Hg) 2015-04-27 17:15:00 [facility] [place] Diastolic (mm Hg) 2015-04-27 17:15:00 [facility] [place] Weight 2015-04-27 13:57:00 [facility] [place] Height 2015-04-27 13:57:00 175.26 cm [facility] BMI Calculated 2015-04-27 13:57:00 [facility] [place] Weight 2015-04-22 16:48:00 [facility] BMI Calculated 2015-04-22 16:48:00 [facility] [place] Height 2015-04-22 16:48:00 175.26 cm [facility] Respitory Rate 2014-09-17 12:26:00 [facility] [place] Systolic (mm Hg) 2014-09-17 12:26:00 [facility] [place] Diastolic (mm Hg) 2014-09-17 12:26:00 [facility] Temperature Oral (F) 2014-09-17 12:26:00 98.3 F [facility] Heart Rate 2014-09-17 12:26:00 [facility] Respitory Rate 2014-09-17 10:19:00 [facility] Systolic (mm Hg) 2014-09-17 10:19:00 [facility] [place] Diastolic (mm Hg) 2014-09-17 10:19:00 [facility] [place] Temperature Oral (F) 2014-09-17 10:19:00 97.9 F [facility] Heart Rate 2014-09-17 10:19:00 [facility] [place] BMI Calculated 2014-09-17 10:19:00 [facility] Height 2014-09-17 10:19:00 175.26 cm [facility] [place] Weight 2014-09-17 10:19:00 [facility] Systolic (mm Hg) 2014-04-05 13:15:00 [facility] [place] Diastolic (mm Hg) 2014-04-05 13:15:00 [facility] [place] Respitory Rate 2014-04-05 13:15:00 [facility] Temperature Oral (F) 2014-04-05 12:09:00 97.8 F [facility] Respitory Rate 2014-04-05 12:09:00 [facility] Heart Rate 2014-04-05 12:09:00 [facility] [place] Systolic (mm Hg) 2014-04-05 12:09:00 [facility] [place] Diastolic (mm Hg) 2014-04-05 12:09:00 [facility] Weight 2014-04-05 12:09:00 [facility] [place] BMI Calculated 2014-04-05 12:09:00 [facility] Height 2014-04-05 12:09:00 175.26 cm [facility] Diastolic (mm Hg) 2014-01-28 21:52:00 [facility] Respitory Rate 2014-01-28 21:52:00 [facility] [place] Systolic (mm Hg) 2014-01-28 21:52:00 [facility] Systolic (mm Hg) 2014-01-28 20:00:00 [facility] [place] Diastolic (mm Hg) 2014-01-28 20:00:00 [facility] Respitory Rate 2014-01-28 20:00:00 [facility] Respitory Rate 2014-01-28 18:00:00 [facility] [place] Diastolic (mm Hg) 2014-01-28 18:00:00 [facility] Systolic (mm Hg) 2014-01-28 18:00:00 [facility] Temperature Oral (F) 2014-01-28 18:00:00 98.1 F [facility] Temperature Oral (F) 2014-01-28 14:00:00 99.1 F [facility] Temperature Oral (F) 2014-01-28 03:05:00 99.4 F [facility] Heart Rate 2014-01-26 18:35:00 [facility] [place] Heart Rate 2014-01-26 14:27:00 [facility] Heart Rate 2014-01-26 09:37:00 [facility] [place] BMI Calculated 2014-01-21 08:15:00 [facility] Weight 2014-01-21 08:15:00 [facility] [place] Height 2014-01-21 08:15:00 175.2 cm [facility] [place] Weight 2014-01-20 23:50:00 [facility] Height 2014-01-20 23:50:00 175.26 cm [facility] [place] BMI Calculated 2014-01-20 23:50:00 [facility] Systolic (mm Hg) 2013-11-03 22:00:00 [facility] Diastolic (mm Hg) 2013-11-03 22:00:00 [facility] Systolic (mm Hg) 2013-11-03 21:00:00 [facility] [place] Diastolic (mm Hg) 2013-11-03 21:00:00 [facility] [place] Systolic (mm Hg) 2013-11-03 20:00:00 [facility] [place] Diastolic (mm Hg) 2013-11-03 20:00:00 [facility] Respitory Rate 2013-11-03 16:00:00 [facility] [place] Respitory Rate 2013-11-03 15:00:00 [facility] Respitory Rate 2013-11-03 14:00:00 [facility] Heart Rate 2013-10-08 15:30:00 [facility] [place] Heart Rate 2013-10-08 15:20:00 [facility] [place] Heart Rate 2013-10-08 15:10:00 [facility] Weight 2013-10-06 11:04:00 [facility] [place] Weight 2013-09-30 10:02:00 [facility] Weight 2013-09-30 03:40:00 [facility] Height 2013-09-30 03:40:00 177.8 cm [facility] BMI Calculated 2013-09-30 03:40:00 Chester Marroquin Procedures Procedure Date / Time Performing Source Performed Clinician POCT-GLUCOSE METER 2021-12-[address] [facility] 11:09:00 [facility] POCT-GLUCOSE METER 2021-12-[address] [facility] 06:14:00 [facility] BASIC METABOLIC PANEL 2021-12-[address] [facility] 04:25:00 [facility] CBC (HEMOGRAM ONLY) 2021-12-[address] [facility] 04:25:00 [facility] XR CHEST 1 VIEW PORTABLE / 2021-12-[address] [facility] BEDSIDE 17:32:00 [facility] CTA CHEST FOR PULMONARY 2021-12-13 Adonay Spring [facility] EMBOLUS 16:51:00 [facility] BASIC METABOLIC PANEL 2021-12-[address] [facility] 16:12:00 [facility] BLOOD GAS, ARTERIAL 2021-12-[address] [facility] 15:34:00 [facility] POCT-GLUCOSE METER 2021-12-[address] [facility] 13:25:00 [facility] TISSUE EXAM 2021-12-[address] [facility] 11:35:00 [facility] Center REPLACEMENT, INTRATHECAL PUMP 2021-12-[address] [facility] 10:50:00 [facility] Center POCT-GLUCOSE METER 2021-12-[address] [facility] 09:01:00 [facility] ECG 12-LEAD 2021-11-30 Unknown, Hl7 Doctor [facility] 11:48:58 [facility] Center ECG 12-LEAD 2021-11-[address] [facility] 11:48:58 [facility] Center ECG 12-LEAD 2021-11-30 Unknown, Hl7 Doctor [facility] 11:48:58 Medical Center URINE CULTURE 2021-11-[address] [facility] 11:43:00 [facility] Center URINALYSIS W/ REFLEX URINE 2021-11-[address] [facility] 11:43:00 [facility] TYPE AND SCREEN, AUTOMATED 2021-11-[address] [facility] 11:43:00 [facility] Center PT/APTT 2021-11-[address] [facility] 11:42:00 [facility] CBC W/PLT COUNT & AUTO 2021-11-30 CatherineJeannette unger [facility] DIFFERENTIAL 11:42:00 [facility] Center BASIC METABOLIC PANEL 2021-11-[address] [facility] 11:42:00 [facility] CBC W/PLT COUNT & AUTO 2021-11-30 CatherineJeannette unger [facility] DIFFERENTIAL 11:42:00 [facility] XR CHEST 2 VIEWS 2021-11-[address] [facility] 11:40:00 [facility] XR ABDOMEN ACUTE SERIES 2021-08-25 Yazan Knight [facility] 13:45:03 [facility] CT HEAD WO CONTRAST 2021-08-25 Eugene Yazan [facility] 13:33:45 [facility] LIPASE 2021-08-[facility] 13:29:00 [facility] COMP. METABOLIC PANEL (41764) 2021-08-25 Yazan Knight [facility] 13:29:00 [facility] CBC WITH DIFF 2021-08-25 Eugene [facility] xa 13:29:00 [facility] URINALYSIS 2021-08-25 [facility] 13:29:00 [facility] AC PANEL 21 + LACTIC ACID 2021-08-25 [facility] 13:29:00 [facility] POCT GLUCOSE (AUTOMATED) 2021-08-22 [place] [facility] 18:05:00 [facility] POCT GLUCOSE (AUTOMATED) 2021-08-22 Matthew [facility] 13:41:00 [facility] POCT GLUCOSE (AUTOMATED) 2021-08-22 Deepika Castro [facility] 01:12:00 Medical Branch POCT GLUCOSE (AUTOMATED) 2021-08-21 [facility] 22:39[facility]00 [facility] POCT GLUCOSE (AUTOMATED) 2021-08-21 [facility] 18:08:00 [facility] POCT GLUCOSE (AUTOMATED) 2021-08-21 [facility] 15:08:00 [facility] BASIC METABOLIC PANEL (NA, K, 2021-08-21 Janelle Rubio [facility] CL, CO2, GLUCOSE, BUN, 09:38:00 Medical B ran CREATININE, CA) CBC WITH DIFF 2021-08-21 Janelle Rubio [facility] xa 09:38:00 Medical Branch N-TERMINAL PRO-BNP 2021-08-21 [facility] 09:38:00 Medical [facility] POCT GLUCOSE (AUTOMATED) 2021-08-21 [facility] 01:56:00 [facility] XR CHEST 1 VW 2021-08-20 [facility] 23:43:07 Medical Branch POCT GLUCOSE (AUTOMATED) 2021-08-20 [facility] 22:08:00 [facility] POCT GLUCOSE (AUTOMATED) 2021-08-20 [facility] 19:02:00 [facility] POCT GLUCOSE (AUTOMATED) 2021-08-20 [facility] 13:37:00 [facility] POCT GLUCOSE (AUTOMATED) 2021-08-20 [facility] 01:42:00 [facility] POCT GLUCOSE (AUTOMATED) 2021-08-19 Matthew [facility] 21:55:00 Medical [facility] POCT GLUCOSE (AUTOMATED) 2021-08-19 Matthew [facility] 17:30:00 Medical [facility] POCT GLUCOSE (AUTOMATED) 2021-08-19 [facility] 14:21:00 [facility] BASIC METABOLIC PANEL (NA, K, 2021-08-19 Saritha Larson [facility] CL, CO2, GLUCOSE, BUN, 09:33:00 Medical B ran CREATININE, CA) CBC WITH DIFF 2021-08-19 Saritha Larson [facility] 09:33:00 Medical Branch POCT GLUCOSE (AUTOMATED) 2021-08-19 Mt[facility] 03:53:00 Medical Branch SPUTUM CULTURE 2021-08-19 [facility] 02:47:00 Medical Branch POCT GLUCOSE (AUTOMATED) 2021-08-19 [facility] POCT GLUCOSE (AUTOMATED) 2021-08-18 Matthew [facility] 22:22:00 [facility] COVID-19 (MOLECULAR TESTING 2021-08-18 [facility]) 16:20:00 [facility] Branch LAB ONLY COVID INTERPRETATION 2021-08-18 [facility] 16:20:00 [facility] POCT GLUCOSE (AUTOMATED) 2021-08-18 Matthew [facility] 13:35:00 [facility] CT ANGIOGRAM CHEST 2021-08-18 [facility] 05:44:51 [facility] POCT GLUCOSE (AUTOMATED) 2021-08-17 Matthew [facility] 22:14:00 Medical Branch POCT GLUCOSE (AUTOMATED) 2021-08-17 [facility] 16:33:00 [facility] POCT GLUCOSE (AUTOMATED) 2021-08-17 [facility] 12:18:00 [facility] BASIC METABOLIC PANEL (NA, K, 2021-08-17 Prema Rooney [facility] CL, CO2, GLUCOSE, BUN, 10:15:00 Medical B ran CREATININE, CA) CBC WITH DIFF 2021-08-17 Prema Rooney [facility] ex 10:15:00 Medical Branch POCT GLUCOSE (AUTOMATED) 2021-08-17 [facility] 02:11:00 [facility] Branch POCT GLUCOSE (AUTOMATED) 2021-08-16 [facility] 21:42:00 [facility] LEGIONELLA URINARY ANTIGEN 2021-08-16 [facility] 20:10:00 [facility] MRSA / MSSA SCREEN BY PCR, 2021-08-16 [facility] NARES 20:10:00 [facility] URINALYSIS 2021-08-16 [facility] 20:07:00 [facility] RESPIRATORY PANEL BY PCR 2021-08-16 [facility] 20:07:00 [facility] POCT GLUCOSE (AUTOMATED) 2021-08-16 [facility] 16:51:00 [facility] Branch POCT GLUCOSE (AUTOMATED) 2021-08-16 [facility] 12:38:00 Medical Branch POCT GLUCOSE (AUTOMATED) 2021-08-16 [facility] 01:25:00 [facility] POCT GLUCOSE (AUTOMATED) 2021-08-15 [facility] 21:57:00 Medical Branch POCT GLUCOSE (AUTOMATED) 2021-08-15 [facility] 16:31:00 Medical Branch POCT GLUCOSE (AUTOMATED) 2021-08-15 [facility] 12:36:00 [facility] MAGNESIUM 2021-08-15 [facility] xas 10:36:00 [facility] BASIC METABOLIC PANEL (NA, K, 2021-08-15 [facility], CO2, GLUCOSE, BUN, 10:36:00 [facility] ranch CREATININE, CA) CBC WITHOUT DIFF 2021-08-15 [facility] 10:36:00 [facility] PROCALCITONIN 2021-08-15 Toribio [facility] ex 10:36:00 [facility] POCT GLUCOSE (AUTOMATED) 2021-08-15 [facility] 02:12:00 Medical Branch SPUTUM CULTURE 2021-08-14 Tramaine Bello [facility] xas 22:32:00 Medical Branch POCT GLUCOSE (AUTOMATED) 2021-08-14 Deepika Castro [facility] 21:27:00 Medical Branch AC PANEL 20 + LACTIC ACID 2021-08-14 Amber Benitez [facility] 20:22:00 Medical Branch CBC WITH DIFF 2021-08-14 Marga [facility] xa 09:48:00 Medical Branch POCT GLUCOSE (AUTOMATED) 2021-08-14 Deepika Castro [facility] 05:19:00 Medical Branch POCT GLUCOSE (AUTOMATED) 2021-08-14 Deepika Castro [facility] 02:32:00 [facility] POCT GLUCOSE (AUTOMATED) 2021-08-13 Deepika Castro [facility] 20:23:00 Medical Branch POCT GLUCOSE (AUTOMATED) 2021-08-13 Deepika Castro [facility] 16:36:00 Medical Branch XR CHEST 1 VW 2021-08-13 Ebenezer Cabrera [facility] 11:31:30 [facility] EKG-12 LEAD 2021-08-13 Doctor Unassigned, [facility] 11:23:05 [facility] [place] BLOOD CULTURE SCREEN 2021-08-13 Ebenezer Cabrera [facility] 11:20:00 Medical Branch COMP. METABOLIC PANEL (50370) 2021-08-13 Ebenezer Cabrera [facility] 11:20:00 Medical Branch CBC WITH DIFF 2021-08-13 Ebenezer Cabrera [facility] ex 11:20:00 Medical Branch GLYCOSYLATED HEMOGLOBIN (A1C) 2021-08-13 Tramaine Bello [facility] 11:20:00 Medical Branch RAPID INFLUENZA A/B 2021-08-13 Ebenezer Cabrera [facility] 11:20:00 [facility] COVID-19 (ID NOW RAPID 2021-08-13 Ebenezer Cabrera [facility] TESTING) 11:20:00 [facility] LAB ONLY COVID INTERPRETATION 2021-08-13 Ebenezer Cabrera U [facility] 11:20:00 Medical [facility] EMERGENCY DEPARTMENT 2021-08-13 Doctor Unassigned, [facility] DOCUMENTS 05:01:00 [facility] HOSPITAL ADMISSION 2021-08-13 Doctor Unassigned, [facility] 05:01:00 [facility] [place] [facility] CERVICAL SPINE WO CONTRAST 2021-07-26 Angus Barnes [facility] 17:16:[address] HEAD WO CONTRAST 2021-07-26 Singer [facility] [place] 17:16:00 [facility] XR CHEST 1 VW 2021-07-26 [facility] 16:42:27 [facility] XR FOREARM 2 VW LEFT 2021-07-26 [facility] 16:42:27 Medical Branch XR PELVIS <3 VW 2021-07-26 [facility] 16:42:27 [facility] XR SHOULDER <2 VW LEFT 2021-07-26 [facility] 16:42:27 [facility] XR PELVIS <3 VW 2021-07-14 Elaina Greer [facility] 01:07:42 Medical Branch XR SHOULDER 2+ VW RIGHT 2021-07-14 GreerElaina gonzalez [facility] 01:07:42 Medical Branch URINALYSIS 2021-06-08 Eugene [facility] 18:31:00 [facility] URINE DRUG (IMMUNOASSAY) - 2021-06-08 Yazan Knight [facility] COMPREHENSIVE DRUG SCREEN W/O 18:31:00 Me [address]ical Branch REFLEX CT HEAD WO CONTRAST 2021-06-08 Eugene Yazan [facility] 17:06:54 Medical Branch XR CHEST 1 VW 2021-06-08 Eugene [facility] xa 17:03:00 Medical Branch AC PANEL 20 + LACTIC ACID 2021-06-08 Yazan Knight [facility] 16:33:00 Medical Branch COVID-19 (ID NOW RAPID 2021-06-08 Eugene Yazan [facility] TESTING) 16:33:00 Medical Branch TROPONIN I 2021-06-08 Eugene [facility] xa 16:24:00 [facility] COMP. METABOLIC PANEL (73775) 2021-06-08 [facility] 16:24:00 [facility] ETHANOL 2021-06-08 Eugene [facility] xa 16:24:00 Medical Branch PROTHROMBIN TIME / INR 2021-06-08 Yazan Knight [facility] 16:24:00 Medical Branch ACTIVATED PARTIAL THRMPLAS 2021-06-08 Yazan Knight [facility] TERESA 16:24:00 Medical Branch N-TERMINAL PRO-BNP 2021-06-08 [facility] 16:24:00 [facility] CBC WITH DIFF 2021-06-08 Eugene [facility] xas 16:23:[address] HEAD WO CONTRAST 2021-06-07 Yazan [facility] [place] 15:37:56 [facility] Branch XR KNEE 3 VW LEFT 2021-06-07 [facility] 15:19:28 Medical Branch XR HIPS 2 VW LEFT 2021-06-07 [facility] 15:04:08 Medical Branch XR KUB 2021-06-07 Eugene [facility] xas 15:00:21 Medical Branch XR RIBS 4+ VW LEFT 2021-06-07 [facility] 14:54:58 Medical Branch XR CHEST 1 VW 2021-06-07 [facility] 14:40:39 Medical Branch Chemodenervation of one 2020-03-16 [facility] extremity; 5 or more muscles 20:19:00 Chemodenervation of one 2019-12-17 [facility] extremity; each additional 18:01:00 extremity, 1-4 muscle(s) (List separately in addition to code for primary procedure) DME/SUPPLY JUSTIFICATION 2019-09-08 [facility] 05:01:00 [place] [place] [facility] Electronic analysis of 2019-08-26 [facility] programmable, implanted pump 15:42:00 for intrathecal or epidural drug infusion (includes evaluation of reservoir status, alarm status, drug prescription status); with reprogramming and refill (requiring skill of a physician or other qualifi EXTERNAL PROVIDER - ADC 2019-07-03 Doctor Unassigned, [facility] REFERRAL 05:01:00 [facility] DME/SUPPLY JUSTIFICATION 2019-05-28 Doctor Unassigned, [facility] [place] 05:01:00 [facility] SLEEP STUDY DATA REPORT 2019-05-20 Doctor Unassigned, [facility] 06:01:00 [facility] SLEEP STUDY DATA REPORT 2019-04-19 Doctor Unassigned, [facility] 06:01:[address] [facility] CT HEAD WO CONTRAST 2019-04-08 Mary Fleming [facility] 20:29:23 Medical Branch ADC,CLC OR LCC ONLY - 2019-04-08 Mary Fleming [facility] INFLUENZA A & B DIRECT 19:57:00 Medical B ranch ANTIGEN ASSIGNMENT OF BENEFITS 2019-04-01 Doctor Unassflaco, [facility] 16:37:44 [facility] AUTHORIZATION FOR RELEASE OF 2018-10-21 Doctor Unaivone, [facility] PHI 05:01:00 [place] [place] [facility] Lengthening of Achilles 2015-11-03 [facility] tendon<sup>1</sup> 05:00:00 Intrathecal 2015-09-16 [facility] injection<sup>2</sup> 05:00:00 Selective catheter placement, 2015-08-02 [facility] [place] vertebral artery, unilateral, 13:00:00 with angiography of the ipsilateral vertebral circulation and all associated radiological supervision and interpretation, includes angiography of the cervicocerebral arch, when performed Gamma-knife surgery 2015-08-02 Eleazar adams 05:00:00 Angiogram 2015-06-05 [facility] [place] 05:00:00 Ventriculoperitoneal shunt 2014-01-26 Hildaor ial [facility] 06:00:00 Cranioplasty 2014-01-21 [facility] 06:00:00 Trachea implantation 2013-10-17 [facility] rmann 05:00:00 Craniectomy 2013-10-08 [facility] 05:00:00 PEG - Percutaneous endoscopic 2013-10-05 [facility] [place] gastrostomy 05:00:00 Chemodenervation<sup>1</sup> Mem orial [facility] Shunt of cerebral ventricle Tom rial [place] to extracranial site Plan of Care Planned Activity Planned Date Details Comments Source Future Scheduled 2022-12-[address] [facility] Test 00:00:00 Counseling and Screening [facility] (12+) [code = Tobacco Cessation Counseling and Screening (12+)] Future Scheduled 2022-12-[address] [facility] Test 00:00:00 [facility] (12[facility] [code = Tobacco Cessation Counseling and Screening (12+)] Future Scheduled 2022-12-[address] [facility] Test 00:00:00 [facility]ing [facility] Screening [facility] (12+) [code = Tobacco Cessation Counseling and Screening (12+)] Future Scheduled 2022-12-[address] [facility] Test 00:00:00 [facility]ing [facility] Screening [facility] (12+) [code = Tobacco Cessation Counseling and Screening (12+)] Future Scheduled 2021-12-28 BMI FOLLOW UP PLAN [code [facility] 13:43:44 = BMI FOLLOW UP PLAN] Medici ne Future Scheduled 2021-12-28 Screening for malignant [facility] 13:42:21 neoplasm of colon Medicine (procedure) [code = 553131757] Future Scheduled 2021-12-28 COVID-19 Vaccine (#1) [facility] 13:42:21 [code = COVID-19 Vaccine Med icine (#1)] Future Scheduled 2021-12-28 TETANUS SHOT (ADULT) [facility] Test 13:42:21 [code = TETANUS SHOT Medicin e (ADULT)] Future Scheduled 2021-12-28 Hepatitis C screening [facility] 13:42:21 (procedure) [code = Medicine 561146789] Future Scheduled 2021-12-28 Human immunodeficiency B [facility] Test 13:42:21 virus screening Medicine (procedure) [code = 210982805] Future Scheduled 2021-12-28 MEDICARE IPPE (WELCOME TO [facility] 13:42:21 MEDICARE) [code = Medicine MEDICARE IPPE (WELCOME TO MEDICARE)] Future Scheduled 2021-12-28 FLU VACCINE > 6 MONTHS B [facility] Test 13:42:21 [code = FLU VACCINE > 6 Medi cine MONTHS] Future Scheduled 2021-12-28 ZOSTER VACCINE (1 of 2) [facility] 13:42:21 [code = ZOSTER VACCINE (1 Me dicine of 2)] Future Scheduled 2021-11-22 Screening for malignant [facility] 04:40:41 neoplasm of colon Medicine (procedure) [code = 327196986] Future Scheduled 2021-11-22 COVID-19 Vaccine (#1) Ba [facility] Test 04:40:41 [code = COVID-19 Vaccine Med icine (#1)] Future Scheduled 2021-11-22 TETANUS SHOT (ADULT) [facility] Test 04:40:41 [code = TETANUS SHOT Medicin e (ADULT)] Future Scheduled 2021-11-22 Hepatitis C screening Ba [facility] Test 04:40:41 (procedure) [code = Medicine 513173972] Future Scheduled 2021-11-22 Human immunodeficiency B [facility] 04:40:41 virus screening Medicine (procedure) [code = 194066703] Future Scheduled 2021-11-22 MEDICARE IPPE (WELCOME TO [facility] 04:40:41 MEDICARE) [code = Medicine MEDICARE IPPE (WELCOME TO MEDICARE)] Future Scheduled 2021-11-22 FLU VACCINE > 6 MONTHS B [facility] 04:40:41 [code = FLU VACCINE > 6 Medi cine MONTHS] Future Scheduled 2021-11-22 ZOSTER VACCINE (1 of 2) [facility] 04:40:41 [code = ZOSTER VACCINE (1 Me dicine of 2)] Future Scheduled 2021-11-22 BMI FOLLOW UP PLAN [code [facility] 04:40:41 = BMI FOLLOW UP PLAN] [...] [facility] 00:00:00 [code = 35541128] Medical Ce nter Future Scheduled 2021-08-09 Lipid panel (procedure) [facility] 00:00:00 [code = 39415092] Medical Ce nter Future Scheduled 2021-08-09 Lipid panel (procedure) [facility] 00:00:00 [code = 11318635] Medical Ce nter Future Scheduled 2021-08-09 Lipid panel (procedure) [facility] 00:00:00 [code = 07718524] Medical Ce nter Future Scheduled 2019-02-[address] [facility] 00[facility]00 measurement (procedure) [facility] [code = 30302291] Future Scheduled 2019-02-[address] [facility] 00[facility]:00 measurement (procedure) [facility] [code = 75772432] Future Scheduled 2019-02-[address] [facility] 00:00:00 measurement (procedure) [facility] [code = 84004434] Future Scheduled 2019-02-[address] [facility] 00:00:00 measurement (procedure) [facility] [code = 33980521] Future Scheduled 2018-11-01 PNEUMOCOCCAL VACCINE 0-[facility] (regime/therapy) [code = [facility] 942194493] Future Scheduled 1982 Urine screening for [facility] 00:00:00 protein (procedure) [code [facility] = 843459171] Future Scheduled 1982 DIABETIC EYE EXAM [code = [facility] 00:00:00 DIABETIC EYE EXAM] Medical C enter Future Scheduled 1982 Diabetic foot examination [facility] 00:00:00 (regime/therapy) [code = [facility] 604223659] Future Scheduled 1982 Urine screening for [facility] 00:00:00 protein (procedure) [code [facility] = 351040116] Future Scheduled 1982 DIABETIC EYE EXAM [code = [facility] 00:00:00 DIABETIC EYE EXAM] Medical C enter Future Scheduled 1982 Diabetic foot examination [facility] 00:00:00 (regime/therapy) [code = [facility] 370073679] Future Scheduled 1982 Urine screening for [facility] 00:00:00 protein (procedure) [code [facility]ical Center = 640773845] Future Scheduled 1982 DIABETIC EYE EXAM [code = [facility] 00:00:00 DIABETIC EYE EXAM] Medical C enter Future Scheduled 1982 Diabetic foot examination [facility] 00:00:00 (regime/therapy) [code = Med ical Center 495097174] Future Scheduled 1982 Urine screening for [facility] 00:00:00 protein (procedure) [code Me dical Center = 429026614] Future Scheduled 1972 COVID-19 VACCINE (#1) [facility] 00:00:[facility] [code = CT Colonography [facility] (combo)] Future Scheduled 1972 Screening for malignant [facility] 00:00:00 neoplasm of colon Medical Ce nter (procedure) [code = 218032517] Future Scheduled 1972 Screening for malignant [facility] 00:00:00 neoplasm of colon Medical Ce nter (procedure) [code = 434628951] Future Scheduled 1972 Screening for malignant [facility] 00:00:00 neoplasm of colon Medical Ce nter (procedure) [code = 974973055] Future Scheduled 1972 Screening for malignant [facility] 00:00:00 neoplasm of colon Medical Ce nter (procedure) [code = 310830376] Future Scheduled 1972 Sigmoidoscopy [facility]oscopy] Medical Yecenia r Future Scheduled 1972 Screening for malignant [facility] 00:00:00 neoplasm of colon Medical Ce nter (procedure) [code = 879229108] Future Scheduled 1972 Sigmoidoscopy [facility]code [facility] S[facility]oidoscopy] Medical Yecenia r Future Scheduled 1972 CT Colonography (combo) [facility] 00:00:00 [code = CT Colonography [facility]i [facility]yl Center (combo)] Future Scheduled 1972 Screening for malignant [facility] 00:00:00 neoplasm of colon Medical Ce nter (procedure) [code = 499937749] Future Scheduled 1972 Screening for malignant [facility] 00:00:00 neoplasm of colon Medical Ce nter (procedure) [code = 952852798] Future Scheduled 1972 Screening for malignant [facility] 00:00:00 neoplasm of colon Medical Ce nter (procedure) [code = 333087145] Future Scheduled 1972 Screening for malignant [facility] 00:00:00 neoplasm of colon Medical Ce nter (procedure) [code = 786446534] Future Scheduled 1972 Sigmoidoscopy [facility]code [facility]oscopy] Madina benson Future Scheduled 1972 CT Colonography (combo) [facility] 00:00:00 [code = CT Colonography [facility] (combo)] Future Scheduled 1972 Screening for malignant [facility] 00:00:00 neoplasm of colon Medical Ce nter (procedure) [code = 629673267] Future Scheduled 1972 Screening for malignant [facility] 00:00:00 neoplasm of colon Medical Ce nter (procedure) [code = 110281854] Future Scheduled 1972 Screening for malignant [facility] 00:00:00 neoplasm of colon Medical Ce nter (procedure) [code = 566530402] Future Scheduled 1972 Screening for malignant [facility] 00:00:00 neoplasm of colon Medical Ce nter (procedure) [code = 925720517] Future Scheduled 1972 Sigmoidoscopy [facility]code [facility] S[facility]oidoscopy] Medical Yecenia r Future Scheduled 1972 CT Colonography (combo) [facility] 00:00:00 [code = CT Colonography [facility] (combo)] Future Scheduled 1972 Screening for malignant [facility] 00:00:00 neoplasm of colon Medical Ce nter (procedure) [code = 952468655] Future Scheduled 1972 Screening for malignant [facility] 00:00:00 neoplasm of colon Medical Ce nter (procedure) [code = 670851673] Future Scheduled 1972 Screening for malignant [facility] 00:00:00 neoplasm of colon Medical Ce nter (procedure) [code = 600489617] Encounters Start End Encounter Admission Attending Care Care Encounter Source Date/Time Date/Time Type Type Clinicians Facility Department ID 2022-01-09 Outpatient [facility] [id number] [place] 15:21:46 [id number] [facility] 2022-01-06 Outpatient [facility] [id number] [place] 15:19:[id number] [place] [address] 2021-12-19 Outpatient [facility] [id number] Common 11:20:01 Bart [facility] 2021-12-06 Outpatient STLMLC STLMLC [id number] Common 14:04:03 [facility] 2021-11-10 Outpatient STLMLC STLMLC [id number] Common 09:19:01 [facility] 2021-04-14 Outpatient 3 [id number] ENCPL CVA [id number] [facility] 12:29:58 [facility] [place] [facility] 2021-04-14 Outpatient 3 [id number] ENCPL REF [id number] [facility] 12:29:39 [facility] [place] 2021-04-13 Outpatient Lay, STLMLC STLMLC [id number] Common 13:34:27 [facility] 27096 [facility] 2021-04-13 Outpatient Lay, STLMLC STLC [id number] Common 12:32:17 Louis 20816 [facility] 2021-04-13 Outpatient Lay, STLMLC STLC [id number] Common 12:29:27 Louis 67751 [facility] 2021-04-13 Outpatient Lay, STLMLC STLC [id number] Common 12:14:47 Louis 57999 [facility] 2021-04-13 Outpatient Lay, [facility]LMLC [facility] [id number] Common 12:12:29 Louis 72[address] [facility] 2021-04-13 Outpatient Lay, STLMLC [facility] [id number] Common 12:08:54 Louis 83128 [facility] 2021-04-13 Outpatient Lay, STLMLC [facility] [id number] Common 12:05:57 Louis 18655 [facility] 2021-04-13 Outpatient Lay, STLMLC [facility] [id number] Common 12:05:29 Louis [id number] [facility] 2021-04-13 Outpatient STLMLC [facility] [id number] Common 12:01:10 [id number] [facility] 2019-02-07 Inpatient MHTW MHTW [id number] MHT W 17:09:56 2019-02-04 Inpatient MHSW MED [id number] MHS W 02:22:00 2022-01-20 2022-01-20 Outpatient LIO MANCUSO [facility] [id number] [place] 13:45:00 13:45:00 Health 2021-12-28 2021-12-28 Office SigridTONY 1.2.840.114 [id number] [facility] 09:40:00 12:05:28 Visit Mai AMBULATOR 350.1.13.21 College Y 0.2.7.2.686 of [id number] Medi christy 300 e 2021-12-19 2021-12-19 OFFICE STLC [facility] [id number] Co mmon 00:00:00 00:00:00 VISIT CELESTINO Spir it PT LEVEL 3 - [facility] 2021-12-13 2021-12-14 Hospital [facility] [id number] [id number] 08:01:00 14:31:00 Encounter , [facility] 2021-12-13 2021-12-14 Outpatient [facility] Surgery [id number] SLE 08:01:00 14:31:00 , [facility] 2021-12-13 2021-12-14 [facility] [id number] [id number] 08:01:00 14:31:00 Encounter , [facility] 2021-12-13 2021-12-13 Outpatient [facility] [id number] [facility] 08:01:00 23:59:00 Siobhan 2021-12-13 2021-12-[address] [facility] [id number] 11:20:00 13:25:00 , [facility] 2021-12-13 2021-12-[address] [facility] [id number] 11:20:00 13:25:00 , [facility] 2021-12-13 2021-12-13 [facility] [id number] 10:50:00 12:36:00 Event [facility] 2021-12-13 2021-12-13 [facility] [id number] 10:50:00 12:36:00 Event Arreaga [facility] 2021-11-30 2021-11-30 [facility] [id number] 11:27:08 23:59:00 Encounter [facility] 2021-11-30 2021-11-30 [facility] [id number] 11:27:08 23:59:00 Encounter [facility] 2021-11-30 2021-11-30 Outpatient [facility] [id number] SLEH 11:27:08 23:59:00 2021-11-30 2021-11-30 Outpatient [facility] SLE [facility]H [id number] [facility] 10:28:55 11:26:00 , [facility] 2021-11-30 2021-11-30 [facility] [id number] [id number] 10:28:55 11:26:00 Encounter , [facility] 2021-11-30 2021-11-30 [facility] [id number] [id number] 10:28:55 11:26:00 Encounter , [facility] 2021-11-30 2021-11-30 Outpatient [facility] SLE SLE [id number] SLEH 10:28:13 11:26:00 , [facility] 2021-11-30 2021-11-30 [facility] [id number] [id number] 10:28:13 11:26:00 Encounter , [facility] 2021-11-30 2021-11-30 [facility] [id number] [id number] 10:28:13 11:26:00 Encounter , [facility] 2021-11-30 2021-11-30 Outpatient SLE SLE [id number] [facility]H 10:27:18 10:27:18 2021-11-29 2021-11-29 Outpatient EL SLE SLE [id number] [facility]H 15:23:59 23:59:00 2021-11-29 2021-11-29 [facility] [id number] 15:00:00 23:59:00 Encounter [facility] 2021-11-29 2021-11-29 [facility] [id number] 15:00:00 23:59:00 Encounter [facility] 2021-11-29 2021-11-29 [facility] [id number] [facility] 00:[facility]00 00:00:00 [facility] 2021-11-29 2021-11-[address] [facility] [id number] 00:00:00 00:00:00 Only , [facility] 2021-11-29 2021-11-[address] [facility] [id number] 00:00:00 00:00:00 Only , [facility] 2021-11-29 2021-11-29 Travel [facility] [id number] [facility] 00:00:00 00:00:00 [facility] 2021-11-14 2021-11-15 Outpatient nullFlavo TR Baclofen 4 [id number] [facility] 18:07:00 04:59:00 r Related 95 l (BACR) Demar 2021-11-14 2021-11-14 Office [facility] 1.2.840.114 [id number] [facility] 10:06:08 15:40:59 Visit , JEANNETTE AMBULATOR 350.1.13.21 College Y 0.2.7.2.686 of [id number] [facility] 300 e 2021-09-28 2021-09-28 Outpatient [facility] [id number] [place] 14:15:00 14:15:00 [facility] 2021-09-28 2021-09-28 Outpatient [facility] [id number] [place] 13:45:00 13:45:00 [facility] 2021-09-16 2021-09-16 Telephone Brain [facility] 1.2.840.114 [id number] Univers 00:00:00 00:00:00 Coleen SAMS 350.1.13.10 i ty of [place] PROF[place] [id number] Co dical [address] 2021-08-25 2021-08-25 Emergency X EUGENE [facility] ERT [id number] Univers 07:51:00 10:42:[address] [facility] 2021-08-25 2021-08-25 Emergency Eugene [facility] 1.2.177.284 [id number] Univers 07:51:00 10:42:00 Yazan SAMS 350.1.13.10 i ty of [place] 4.2.7.2.686 [facility] [id number] [facility] [address] 2021-08-24 2021-08-24 Office URVASHI Carrillo 6414 1.2.840.114 [id number] [place] 14:15:00 14:49:[address] 350.1.13.58 Health 9.2.7.2.686 [id number] 1 2021-08-23 2021-08-23 Transition LOUIS DashSallie 1.2.840.114 [id number] Univers 00:00:00 00:00:00 of Care Blanca L MOSS 350.1.13.10 i ty of [place] 4.2.7.2.686 [facility] [id number] [facility] [address] 2021-08-13 2021-08-22 Inpatient [facility] [id number] Univers 06:11:00 18:15:00 CHARITO butts of [facility] 2021-08-13 2021-08-22 [facility] Rick Ebenezer [facility] 1.2.840. 114 [id number] Univers 06:11:00 18:15:00 Encounter Jimbo Luna HEALTH 350.1.13.10 ity of Deepika Castro 4.2.7.2.686 [place] Charito Michelle [id number] [address] ([facility]) 2021-08-22 2021-08-22 Outpatient [facility] [id number] [place] 12:45:00 12:45:00 [facility] 2021-08-05 2021-08-05 Ambulatory nullFlavo MNA [id number] Memoria 16:30:00 16:30:00 Pre-Reg r Neurology [place] 2021-08-01 2021-08-01 Office URVASHI Craig 6414 1.2.840.114 [id number] [place] 10:15:00 11:56:[address] 350.1.13.58 Health 9.2.7.2.686 [id number] 1 2021-07-26 2021-07-26 Emergency X SINGER [facility] ERT [id number] Univers 09:29:00 13:18:[address] [facility] 2021-07-26 2021-07-26 Emergency [facility] 1.2.600.016 [id number] Univers 09:29:00 13:18:00 Angus SAMS 350.1.13.10 i ty of [place] 4.2.7.2.686 [facility] [id number] [address] 2021-07-19 2021-07-20 Outpatient nullFlavo TR Baclofen 4 [id number] Memoria 15:16:00 04:59:00 r Related 93 l (BACR) [place] 2021-07-13 2021-07-13 Emergency X [facility] ERT [id number] Univers 18:34:00 21:46:[address] [facility] 2021-07-13 2021-07-[address] [facility] 1.2.570.512 [id number] Univers 18:34:00 21:46:00 Elaina Benson LATRELL 350.1.13.10 i ty of [place] 4.2.7.2.686 [facility] [id number] [address] 2021-06-08 2021-06-08 Emergency [facility] ERT [id number] Univers 11:15:00 15:55:[address] [facility] 2021-06-08 2021-06-08 Emergency [facility] 1.2.587.989 [id number] Univers 11:15:00 15:55:00 Yazan SAMS 350.1.13.10 i ty of [place] 4.2.7.2.686 [facility] [id number] [address] 2021-06-07 2021-06-07 Emergency [facility] ERT [id number] Univers 08:16:00 12:53:[address] [facility] 2021-06-07 2021-06-07 Emergency [facility] 1.2.523.901 [id number] Univers 08:16:00 12:53:00 Yazan SAMS 350.1.13.10 i ty of [place] 4.2.7.2.686 [facility] [id number] [facility] cheryl [address] 2021-06-06 2021-06-06 Telephone Lio Mancuso 6400 1.2.840.114 [id number] [place] 00:00:00 00:00:[address] 350.1.13.58 Health 9.2.7.2.686 [id number] 0 2021-03-16 2021-03-17 Outpatient nullFlavo TR Baclofen 4 [id number] Memoria 18:51:00 05:59:00 r Related 92 l (BACR) [place] 2021-01-20 2021-01-20 (TEL) STLMLC STLMLC [id number] Co mmon 00:00:00 00:00:00 [facility] 2020-12-27 2020-12-27 Ambulatory nullFlavo MNA [id number] Memoria 15:30:00 15:30:00 Pre-Reg r Neurology 15 l [place] Demar 2020-11-16 2020-11-17 Outpatient nullFlavo TR Baclofen 4 [id number] Memoria 15:46:00 04:59:00 r Related 89 l (BACR) Demar 2020-11-08 2020-11-08 EXT [facility] OP [place], EXT MSRDP 1.2.840.114 [id number] [place] 00:00:00 00:00:00 Missy LOCATION 350.1.13.58 H ealth 9.2.7.2.686 [id number] 0 2020-11-08 2020-11-08 EXT [facility] OP [place], EXT MSRDP 1.2.840.114 [id number] [place] 00:00:00 00:00:00 Missy LOCATION 350.1.13.58 H ealth 9.2.7.2.686 [id number] 0 2020-10-26 2020-10-27 [place]Fl[place] BT- [id number] Memoria 15:27:00 04:59:00 r Adult BI 90 l (ABIR) Demar 2020-08-30 2020-08-31 Outpatient nullFlavo MNA [id number] Memoria 19:00:00 04:59:59 r Neurology 14 l [place] 2020-08-26 2020-08-26 (TEL) STLMLC STLMLC [id number] Co mmon 00:00:00 00:00:00 [facility] 2020-06-18 2020-06-19 Outpatient nullFlavo TR Baclofen 4 [id number] [facility] 15:15:00 04:59:00 r Related 87 l (BACR) [place] 2020-06-07 2020-06-07 (TEL) STLMLC STLMLC [id number] Co mmon 00:00:00 00:00:00 [facility] 2020-05-10 2020-05-10 (TEL) STLMLC STLMLC [id number] Co mmon 00:00:00 00:00:00 [facility] 2020-04-28 2020-04-28 (TEL) STLMLC STLMLC [id number] Co mmon 00:00:00 00:00:00 [facility] 2020-04-27 2020-04-27 (TEL) STLMLC STLMLC [id number] Co mmon 00:00:00 00:00:00 [facility] 2020-04-22 2020-04-22 (TEL) STLMLC STLMLC [id number] Co mmon 00:00:00 00:00:00 [facility] 2020-04-06 2020-04-06 (TEL) STLMLC STLMLC [id number] Co mmon 00:00:00 00:00:00 [facility] 2020-04-02 2020-04-02 (TEL) STLMLC STLMLC [id number] Co mmon 00:00:00 00:00:00 [facility] 2020-03-29 2020-03-29 (TEL) STLMLC STLMLC [id number] Co mmon 00:00:00 00:00:00 [facility] 2020-03-25 2020-03-25 (TEL) STLMLC STLMLC [id number] Co mmon 00:00:00 00:00:00 [facility] 2020-03-16 2020-03-[place] [id number] Memoria 17:24:00 05:59:00 r Spasticity 86 l Proc [facility] José Luis peoples (SPCR) 2020-03-11 2020-03-11 (TEL) STLMLC STLMLC [id number] Co mmon 00:00:00 00:00:00 [facility] 2020-03-09 2020-03-09 OFFICE STLMLC STLMLC [id number] Co mmon 00:00:00 00:00:00 VISIT [facility] PT - CHI LEVEL 4 [facility] 2020-03-09 2020-03-09 (TEL) STLMLC STLMLC [id number] Co mmon 00:00:00 00:00:00 [facility] 2020-03-09 2020-03-09 (TEL) STLMLC STLMLC [id number] Co mmon 00:00:00 00:00:00 [facility] 2020-02-26 2020-02-26 (TEL) STLMLC STLMLC [id number] Co mmon 00:00:00 00:00:00 [facility] 2020-02-26 2020-02-26 (TEL) STLMLC STLMLC [id number] Co mmon 00:00:00 00:00:00 [facility] 2020-02-26 2020-02-26 (TEL) STLMLC STLMLC [id number] Co mmon 00:00:00 00:00:00 [facility] 2020-02-16 2020-02-16 (TEL) STLMLC STLMLC [id number] Co mmon 00:00:00 00:00:00 [facility] 2020-02-16 2020-02-16 OFFICE STLMLC STLMLC [id number] Co mmon 00:00:00 00:00:00 VISIT [facility] PT - CHI LEVEL 4 [facility] 2020-01-23 2020-01-23 (TEL) STLMLC STLMLC [id number] Co mmon 00:00:00 00:00:00 [facility] 2020-01-22 2020-01-22 (TEL) STLMLC STLMLC [id number] Co mmon 00:00:00 00:00:00 [facility] 2020-01-20 2020-01-21 Outpatient nullFlavo TR Baclofen 4 [id number] Memoria 15:40:00 05:59:00 r Related 84 l (BACR) Demar 2020-01-19 2020-01-19 Outpatient STLMLC STLMLC [id number] Common 00:00:00 00:00:00 [facility] 2020-01-19 2020-01-19 (TEL) STLMLC STLMLC [id number] Co mmon 00:00:00 00:00:00 [facility] 2019-12-30 2019-12-30 Telephone [facility] 1.2.840.114 [id number] Univers 00:00:00 00:00:00 Coleen Sams 350.1.13.10 i ty of [place] [id number] Co dical nal [address] [place] [address] 2019-12-17 2019-12-18 [place] [id number] Memoria 14:43:00 04:59:00 r Spasticity 85 l Proc Taylor peoples (SPCR) 2019-12-08 2019-12-08 Telephone [facility] 1.2.840.114 [id number] Univers 00:00:00 00:00:00 Coleen Sams 350.1.13.10 i ty [place] [id number] Co dical nal 044 [facility] 2019-11-04 2019-11-05 Outpt Diag nullFlavo [facility] [id number] Memoria 19:54:00 04:59:00 Services r Outpatient 08 l Imaging Demar [place] 2019-10-21 2019-10-21 Telephone [facility] 1.2.840.114 [id number] Univers 00:00:00 00:00:00 Coleen Sams 350.1.13.10 i ty [place] [phone] Me dical nal 044 [facility] 2019-10-21 2019-10-21 Telephone [facility] [id number] 00:00:00 00:00:00 Coleen Sams [id number] [place] [id number] Professio [phone] [address] 2019-09-16 2019-09-17 [place] [id number] Memoria 16:24:00 04:59:00 r Spasticity 83 l Proc [facility] 2019-09-08 2019-09-08 Orders Doctor DARWIN [id number] Univers 00:00:00 00:00:00 Only Unassigned, SALINAS 350.1.13.10 ity of [place] [facility] 4.2.7.2.686 Kwabena as [phone] [address] 2019-09-08 2019-09-08 Orders Doctor DARWIN 1.2.840.114 [id number] 00:00:00 00:00:00 Only Unassigned, SALINAS 350.1.13.10 [place] [facility] 4.2.7.2.686 [phone] [facility] 2019-08-26 2019-08-27 [place]Fl[place]- [id number] Memoria 14:10:00 04:59:00 r Adult BI 31 [facility] 2019-08-13 Outpatient R MARIA ESTHER, [facility]ETH[facility] [id number] [facility] 14:30:00 14:30:00 ATANASOV, STRAHIL ity of [facility] 2019-08-13 2019-08-13 Office [facility] 1.2.132.714 [id number] [facility] 08:35:52 09:05:52 Visit Strahil Luis Sams 350.1.13.10 ity of [place] [phone] [facility] 085 [facility] 2019-08-13 2019-08-13 Office [facility] 1.2.148.072 [id number] 08:35:52 09:05:52 Visit Strahil Luis Sams 350.1.13.10 [place] 4.2.7.2.686 Professio [phone] [address] 2019-08-12 2019-08-12 Telephone [facility] 1.2.840.114 7 [id number] Univers 00:00:00 00:00:00 Coleen Sams 350.1.13.10 i ty of [place] [phone] [address] 2019-07-22 2019-07-22 Outpatient R [facility] [id number] Univers 10:20:00 10:20:[address] [facility] 2019-07-09 2019-07-09 Telephone [facility] 1.2.840.114 7 [id number] Univers 00:00:00 00:00:00 Coleen Sams 350.1.13.10 i ty of [place] [phone] [address] 2019-07-07 2019-07-07 Telephone [facility] 1.2.840.114 7 [id number] Univers 00:00:00 00:00:00 Coleen Sams 350.1.13.10 i ty of [place] [phone] [address] 2019-07-03 2019-07-03 Orders Doctor DARWIN 1.2.840.114 [id number] Univers 00:00:00 00:00:00 Only Unassigned, SALINAS 350.1.13.10 ity of [place] [facility] 4.2.7.2.686 [place] as [phone] [address] 2019-07-03 2019-07-03 Telephone [facility] 1.2.840.114 7 [id number] Univers 00:00:00 00:00:00 Coleen Sams 350.1.13.10 i ty of [place] [phone] [address] 2019-06-30 2019-06-30 Telephone [facility] 1.2.840.114 7 [id number] Univers 00:00:00 00:00:00 Coleen Sams 350.1.13.10 i ty of [place] [phone] [address] 2019-06-30 2019-06-30 Telephone [facility] 12.840.114 7 [id number] Univers 00:00:00 00:00:00 Coleen Sams 350.1.13.10 i ty of [place] [phone] [address] 2019-06-25 2019-06-25 [address]114 7 [id number] Univers 00:00:00 00:00:00 Coleen Sams 350.1.13.10 i ty of [place] [phone] [address] 2019 2019 Urgent Provider, [facility] Care [facility] 1.2.840.114 [id number] Univers 10:50:50 11:57:31 Care [facility] 350.1.13.10 ity of [place] 4.2.7.2.686 [place] as Professio [phone] [address] Office [facility] 2019 2019 Outpatient R [facility] [id number] Univers 11:00:00 11:00:[address] [facility] 2019-06-19 2019-06-19 Nurse DARWIN Garcia 1.2.840.114 [id number] Univers 00:00:00 00:00:00 Triage Michelle NIÑO 350.1.13.10 i ty of [facility] 4.2.7.2.686 [place] as [phone] [address] 2019-06-13 2019-06-13 Telephone [facility] 1.2.840.114 7 [id number] Univers 00:00:00 00:00:00 Coleen Sams 350.1.13.10 i ty of [place] [phone] Co dical nal [address] [place] [address] 2019-06-05 2019-06-05 Outpatient R [facility] [id number] Univers 12:40:00 12:40:[address] [facility] 2019-06-04 2019-06-04 Telephone [facility] 1.2.840.114 7 [id number] Univers 00:00:00 00:00:00 Coleen Sams 350.1.13.10 i ty of [place] [phone] Co dicks nal [address] [place] [address] 2019-06-04 2019-06-04 [facility] 1.2.840.114 7 [id number] Univers 00:00:00 00:00:00 Coleen Sams 350.1.13.10 i ty of [place] [phone] Co dical nal [address] [place] [address] 2019-06-02 2019-06-02 [facility] 1.2.840.114 7 [id number] Univers 00:00:00 00:00:00 Coleen Sams 350.1.13.10 i ty of [place].2.[place] [phone] Co dical nal [address] [place] [address] 2019-05-30 2019-05-30 [facility] 1.2.840.114 7 [id number] Univers 00:00:00 00:00:00 Coleen Sams 350.1.13.10 i ty of [place] [phone] Co dical nal [address] [place] [address] 2019-05-30 2019-05-30 Telephone [facility] 1.2.840.114 7 [id number] Univers 00:00:00 00:00:00 Coleen Sams 350.1.13.10 i ty of [place].2.[place] [phone] Co dical nal [address] [place] [address] 2019-05-29 2019-05-29 [facility] 1.2.840.114 [id number] Univers 00:00:00 00:00:00 Coleen Sams 350.1.13.10 i ty of [place].2.[place] [phone] Co dical nal 044 [facility] 2019-05-28 2019-05-28 Telephone [facility] 1.2.840.114 7 [id number] Univers 00:00:00 00:00:00 Coleen Sams 350.1.13.10 i ty of [place].2.[place] [phone] Co dical nal [address] [place] [address] 2019-05-28 2019-05-28 Orders Doctor DARWIN 1.2.840.114 [id number] Univers 00:00:00 00:00:00 Only Unassigned, SALINAS 350.1.13.10 ity of [place] [facility] 4.2.7.2.686 [place] as [phone] [address] 2019-05-27 2019-05-27 Telephone [facility] 1.2.840.114 7 [id number] Univers 00:00:00 00:00:00 Coleen Sams 350.1.13.10 i ty of [place].2.[place] [phone] Co dical nal [address] [place] [address] 2019-05-24 2019-05-25 Between [facility] [id number] Memoria 13:14:30 13:14:30 Visit marcelino Bush l Demar Benz 2019-05-23 2019-05-23 Telephone [facility] 1.2.840.114 7 [id number] Univers 00:00:00 00:00:00 Coleen Sams 350.1.13.10 i ty of [place] [phone] Co dical nal 044 [facility] 2019-05-22 2019-05-22 Edging Machine Operator 2, Adc Lab [facility] 1.2.840.114 [id number] Univers 16:02:32 16:17:32 Visit Coleen De La Paz 350.1.13.10 ity of [place].2.[place] [phone] [facility] 353 [facility] 2019-05-22 2019-05-22 Office Brain [facility] 1.2.840.114 [id number] [facility] 14:19:49 15:54:29 Visit Coleen Sams 350.1.13.10 i ty of [place].2.[place] [phone] [facility] 044 [facility] 2019-05-22 2019-05-22 Outpatient R BRAIN [facility] [id number] Univers 14:20:00 14:20:[address] [facility] 2019-05-22 2019-05-22 Telephone Brain [facility] 1.2.840.114 7 [id number] Univers 00:00:00 00:00:00 Coleen Sams 350.1.13.10 i ty of [place].2.[place] [phone] [facility] 044 [facility] 2019-05-22 2019-05-22 Telephone Maria Esther [facility] 1.2.840.114 [id number] Univers 00:00:00 00:00:00 Omer Sams 350.1.13.10 ity of [place].2.[place] [phone] [facility] 085 [facility] 2019-05-20 2019-05-20 Outpatient R BETHANY MAYOL [facility] [id number] Univers 20:00:00 20:00:[address] [facility] 2019-05-20 2019-05-20 Edging Machine Operator 1, [facility] Sleep Lab Bed [facility] 1. 2.840.114 [id number] Univers 13:52:54 16:22:54 Visit Omer Mayo 350.1.13. 10 ity of [place].2.[place] [phone] [address] 2019-05-20 2019-05-20 Telephone Maria Esther [facility] 1.2.840.114 [id number] Univers 00:00:00 00:00:00 Omer Sams 350.1.13.10 ity of [place] [phone] Co dical nal 085 [facility] 2019-05-20 2019-05-20 Orders Doctor DARWIN 1.2.840.114 [id number] Univers 00:00:00 00:00:00 Only Unassigned, SALINAS 350.1.13.10 ity of [place] [facility] 4.2.7.2.686 [place] as [phone] [address] 2019-05-07 2019-05-07 Telephone [facility] 12.300.995 [id number] Univers 00:00:00 00:00:00 Mer Sams 350.1.13.10 i ty of [place]2.[place] [phone] [facility] 059 [facility] 2019-05-06 2019-05-06 Telephone [facility] 12.840.114 7 [id number] Univers 00:00:00 00:00:00 Coleen Sams 350.1.13.10 i ty of [place] [phone] [facility] 044 [facility] 2019-04-25 2019-04-25 Telephone [facility] 12.840.114 7 [id number] Univers 00:00:00 00:00:00 Coleen Sams 350.1.13.10 i ty of [place].2.[place] [phone] Co dicks nal 044 [facility] 2019-04-19 2019-04-19 Orders Doctor DARWIN 1.2.840.114 [id number] Univers 00:00:00 00:00:00 Only Unassigned, SALINAS 350.1.13.10 ity of [place] [facility] 4.2.7.2.686 Kwab[place] as [phone] [address] 2019-04-16 2019-04-16 Outpatient R OMER MAYO [facility] [id number] Univers 15:00:00 15:00:00 OMER MAYO ity of [facility] 2019-04-16 2019-04-16 Telephone [facility] 1.2.840.114 7 [id number] Univers 00:00:00 00:00:00 Coleen Sams 350.1.13.10 i ty of [place].2.[place] [phone] [address] 2019-04-16 2019-04-16 Telephone [facility] 1.2.840.114 7 [id number] Univers 00:00:00 00:00:00 Coleen Sams 350.1.13.10 i ty of [place].2.[place] [phone] [address] 2019-04-11 2019-04-11 [facility] 1.2.840.114 7 [id number] Univers 00:00:00 00:00:00 Coleen Mann 350.1.13.10 it y of [place] 4.2.7.2.686 [place] Professio [phone] [address] Office [facility] 2019-04-08 2019-04-08 Emergency [facility] 1.2.840.114 [id number] [facility] 13:31:16 16:10:00 Mary Sams 350.1.13.10 ity of [place].2.[place] [phone] [address] 2019-04-08 2019-04-08 Telephone [facility] 1.2.840.114 7 [id number] Univers 00:00:00 00:00:00 Coleen Sams 350.1.13.10 i ty of [place].2.[place] [phone] [address] 2019-04-01 2019-04-01 Edging Machine Operator Yifan, Adc Lab Main [facility] 1.2.8 40.114 [id number] Univers 13:02:30 13:17:30 Visit Coleen De La Paz 350.1.13.10 ity of [place].2.[place] [phone] Co dical nal 353 [facility] 2019-04-01 2019-04-01 Office Brain NVEDNA 1.2.840.114 [id number] [facility] 10:41:54 12:02:13 Visit Coleen Sams 350.1.13.10 i ty of [place].2.[place] [phone] Co dical nal 044 [facility] 2019-04-01 2019-04-01 Orders Doctor DARWIN 1.2.840.114 [id number] Univers 00:00:00 00:00:00 Only Unassigned, SALINAS 350.1.13.10 ity of [place] [facility] 4.2.7.2.686 [place] as [phone] [address] 2019-02-08 2019-02-21 Inpatient nullFlavo [facility] [id number] Memoria 02:51:00 22:59:00 Rehab [facility] 29 l [facility] 2019-02-04 2019-02-[address] [facility] [address] [facility] [id number] Memoria 08:22:00 02:15:00 [facility] [address] [facility] 2018-11-27 2018-11-27 Telephone Basil Singer [facility] 1.2.840.114 [id number] Univers 00:00:00 00:00:00 C Latrell 350.1.13.10 i ty of [place] [phone] Co dical nal 044 [facility] 2018-11-12 2018-11-21 Office Basil Singer [facility] 1.2.840.114 [id number] [facility] 14:40:43 08:13:38 Visit Nette Sams 350.1.13.10 i ty of [place].2.[place] [phone] Co dical nal 044 [facility] 2018-11-13 2018-11-13 Telephone Basil Singer [facility] 1.2.840.114 [id number] Univers 00:00:00 00:00:00 C [place] 350.1.13.10 i ty of [place] 4[place].2.[place] [phone] Co dical nal 044 [facility] 2018-10-21 2018-10-21 Orders Doctor DARWIN 1.2.840.114 [id number] Univers 00:00:00 00:00:00 Only Unassigned, SALINAS 350.1.13.10 ity of [place] [facility] 4.2.7.2.686 [place] as [phone] [address] 2018-10-14 2018-10-14 Telephone Basil Singer [facility] 1.2.840.114 [id number] Univers 00:00:00 00:00:00 C [place] 350.1.13.10 i ty of [place] [phone] [address] 2018-10-09 2018-10-09 Telephone Basil Singer [facility] 1.2.840.114 [id number] Univers 00:00:00 00:00:00 C [place] 350.1.13.10 i ty of [place] [phone] [address] 2018-09-27 2018-09-28 Outpatient nullFlavo MNA [id number] Memoria 14:00:00 04:59:59 r Neurosurger 13 l y [facility] 2018-09-24 2018-09-24 Observatio [facility] [id number] Memoria 05:31:00 20:30:00 sallie Benz 89 l [facility] 2018-09-24 2018-09-24 Outpatient [facility] [id number] Memoria 00:31:00 00:31:00 mendoza donaldson [facility] 2018-08-26 2018-08-28 Phone nullFlavo MNA [id number] Memoria 13:34:55 04:59:59 Message r Neurosurger 45 l y [facility] 2018-08-09 2018-08-11 Phone nullFlavo MNA [id number] Memoria 20:07:22 04:59:59 Message r Neurosurger 44 l y [facility] 2018-08-05 2018-08-07 Phone nullFlavo MNA [id number] Memoria 18:07:58 04:59:59 Message r Neurosurger 43 l y [facility] 2018-08-05 2018-08-07 Phone nullFlavo MNA [id number] Memoria 18:06:33 04:59:59 Message r Neurosurger 42 l y [facility] 2018-08-02 2018-08-04 Inpatient nullFlavo [facility] [id number] Memoria 20:54:13 20:20:00 r [place] 27 [facility] 2018-08-02 2018-08-04 Inpatient U ABDELHAMID, [facility] [id number] [facility] 20:29:00 15:20:00 NOURELDIN 2018-01-25 2018-01-26 Outpatient nullFlavo MNA [id number] Memoria 17:45:00 05:59:59 r Neurosurger 12 l y [facility] 2018-01-23 2018-01-25 Phone nullFlavo MNA [id number] Memoria 17:53:00 05:59:59 Message r Neurosurger 41 l y [facility] 2018-01-22 2018-01-23 Outpatient nullFlavo [facility] [id number] Memoria 19:49:00 05:59:00 r [place] 26 [facility] 2018-01-02 2018-01-04 Phone nullFlavo MNA [id number] Memoria 13:17:00 04:59:59 Message r Neurosurger 40 l y [facility] 2018-01-02 2018-01-04 Phone nullFlavo MNA [id number] Memoria 13:16:00 04:59:59 Message r Neurosurger 39 l y [facility] 2017-12-12 2017-12-14 Phone nullFlavo MNA [id number] Memoria 17:27:00 04:59:59 Message r Neurosurger 38 l y [facility] 2017-12-13 2017-12-13 Outpt Diag nullFlavo [facility] [id number] Memoria 00:30:00 00:30:00 Services r Outpatient 07 l [facility] 2017-11-13 2017-11-15 Phone nullFlavo MNA [id number] Memoria 13:41:00 04:59:59 Message r Neurosurger 37 l y [facility] 2017-10-31 2017-11-02 Phone nullFlavo MNA [id number] Memoria 18:33:00 04:59:59 Message r Neurosurger 36 l y [facility] 2017-11-01 2017-11-01 Observatio nullFlavo [facility] [id number] Memoria 06:09:00 20:56:00 n r Demar 25 l [facility] 2017-10-15 2017-10-17 Phone nullFlavo MNA [id number] Memoria 13:43:00 04:59:59 Message r Neurosurger 35 l y [facility] 2017-06-23 2017-06-29 Inpatient nullFlavo [facility] [id number] Memoria 23:20:00 02:03:00 r Demar 97 [facility] 2017-03-01 2017-03-03 Phone nullFlavo MNA [id number] Memoria 15:43:00 05:59:59 Message r Neurosurger 34 l y [facility] 2016-12-16 2016-12-17 Observatio nullFlavo [facility] [id number] Memoria 01:21:00 01:35:00 n marcelino Benz 72 [facility] 2016-10-27 2016-10-27 Outpatient MHIE MARIANELA [id number] Memoria 10:00:00 10:00:00 11 [facility] 2016-10-17 2016-10-18 Outpatient nullFlavo [facility] [id number] Memoria 13:40:00 04:59:00 r [place] 21 [facility] 2016 2016-07-11 Inpatient nullFlavo [facility] [id number] Memoria 21:32:00 16:20:00 Rehab r [facility] 20 [facility] 2016-05-02 2016-05-03 Outpatient nullFlavo [facility] [id number] Memoria 14:46:00 05:59:00 r [facility] 18 [facility] 2016-04-25 2016-04-26 Emergency nullFlavo [facility] [id number] Memoria 20:14:00 00:26:[address] [facility] 2016-04-08 2016-04-09 Emergency nullFlavo [facility] [id number] Memoria 20:41:00 00:36:[address] [facility] 2016-03-31 2016-04-01 Emergency nullFlavo [facility] [id number] Memoria 21:10:00 04:17:[address] [facility] 2016-01-28 2016-01-28 Outpatient MHIE MHIE [id number] Memoria 11:30:00 11:30:00 04 [facility] 2015-11-10 2015-12-31 Inpatient nullFlavo [facility] [id number] Memoria 01:24:00 00:31:00 Rehab r [facility] 13 [facility] 2015-12-09 2015-12-10 Observatio nullFlavo [facility] [id number] Memoria 18:29:00 21:46:00 n marcelino [place] 14 [facility] 2015-12-09 2015-12-09 Outpatient MHIE MHIE [id number] Memoria 08:00:00 08:00:00 10 [facility] 2015-12-03 2015-12-03 Outpatient MHIE MHIE [id number] Memoria 09:15:00 09:15:00 09 [facility] 2015-11-03 2015-11-03 Outpatient MHIE MHIE [id number] Memoria 14:45:00 14:45:00 08 [facility] 2015-09-10 2015-09-10 Outpatient MHIE MHIE [id number] Memoria 11:15:00 11:15:00 03 mendoza [place] 2015-09-01 2015-09-01 Outpatient MHIE MHIE [id number] Memoria 08:00:00 08:00:00 07 mendoza [place] 2015-08-20 2015-08-21 OBS Day nullFlavo [facility] [id number] Memoria 11:24:00 04:59:00 Surgery r [place] 12 [facility] 2015-08-20 2015-08-20 Outpatient MHIE MHIE [id number] Memoria 08:00:00 08:00:00 06 mendoza [place] 2015-08-06 2015-08-07 Outpatient nullFlavo [facility] [id number] Memoria 12:46:00 04:59:00 r [facility] 11 [facility] 2015-08-02 2015-08-02 Bedded nullFlavo [facility] [id number] Memoria 10:08:00 17:45:00 Outpatient r [place] 10 [facility] 2015-06-09 2015-06-29 Inpatient nullFlavo [facility] [id number] Memoria 16:22:00 23:41:00 Rehab r [facility] 07 [facility] 2015-05-11 2015-06-10 Challenge nullFlavo [facility] [id number] Memoria 14:00:00 04:59:00 Program r [facility] 00 [facility] 2015-06-04 2015-06-04 Outpatient MHIE MHIE [id number] Memoria 10:30:00 10:30:00 01 [facility] 2015-05-24 2015-05-25 Outpatient nullFlavo [facility] [id number] Memoria 14:45:00 05:59:00 r [facility] 08 [facility] 2015-05-11 2015-05-12 Outpatient nullFlavo [facility] [id number] Memoria 20:49:00 05:59:00 r [facility] 09 [facility] 2015-04-28 2015-04-29 Outpatient nullFlavo [facility] [id number] Memoria 18:05:00 05:59:00 r [facility] 05 [facility] 2015-04-27 2015-04-28 OBS Day nullFlavo [facility] [id number] Memoria 12:27:00 05:59:00 Surgery r [place] 06 [facility] 2015-04-02 2015-04-03 Outpt Diag nullFlavo [facility] [id number] Memoria 15:27:00 05:59:00 Services r Outpatient 03 [facility] 2015-04-02 2015-04-02 Outpatient MHIE MHIE [id number] Memoria 12:30:00 12:30:00 00 [facility] 2014-09-17 2014-09-17 EC nullFlavo [facility] [id number] Memoria 10:18:00 12:50:00 Emergency r [place] 03 [facility] 2014-04-05 2014-04-05 EC nullFlavo [facility] [id number] Memoria 12:06:00 17:14:00 Emergency r [place] 02 [facility] 2014-01-20 2014-01-28 Inpatient nullFlavo [facility] [id number] Memoria 23:49:00 22:30:00 r [place] [address] [facility] 2013-09-30 2013-11-03 Inpatient [facility] [id number] Memoria 03:15:00 22:30:00 [facility] 95 [facility] Results Test Description Test Time Test Comments Results Result Comments Source Tissue Exam 2021-12-16 12:00:53 Test Item Value Reference Range Interpretation Comme nts Case Report (test code = 104) Surgical Pathology Report Case: [id number] Authorizing Provider: Jeannette Alexander MD Collected: 12/13/2021 11:35 AM Ordering Location: [facility] Received: 12/13/2021 12:40 PM SERVICES Pathologist: June Esposito MD Specimen: Explant, previous intrathecal pump DIAGNOSIS (test code = 3220) b6lniWPmRWOdk9pgYDKqgPQhAyTcApFtMiBzFe pc dWMxIHtccnRmMVxlcGljOTYwMlxhbnNpXHNwbHRw T1MlyradBAjvVH1bQP4goKjxuCOtsKAvRHYtTgGv u1tlc724sGKpu1ajFGXEbokguQd0lProH62ev2T6 HtluZ12heGLgTDM7RNIdJYOsfMThJHDqJEX2VFHr iFCgG1uvKDNbBT4nbvpcLLljDPklRHUkqFX5EGLr nFDpU3RtWYJsDIusGRUtbmx4QgUdSt8pcVNnmRnx MFxwYXJkXHBsYWluXGZzMjAgTUVESUNBTCBERVZJ D6EdFLRTSz6SDPZDWSQOEtMzAX8HLcMNALNHHMvi RXKABJWvCFFESK7CZZf9VSfzkqFvQFVdLOPdAC4U RRoGQNipBQIECYMUIWRUVwTNGf3GVuFQMUUERUuL YCMKDLiPFlKDEchPEKlCMSBXA9KlJ1YFPPeXA1LF CIUSO4XOMATGNV0MVXvjGQZxdKNxhIbbvsHzPByx h8NfAEtuIRJxTI1gtHigNXQiUM0iGYXiJ5rmyM8m sah0BmHyAYNsYgL8KZLqqhO9Clx3AUCsBCwaj8ix d8QbLHEnLCo6fYluRuNnJDTtl1mhvvJuKpEdLEEe BJTdPXKpwJXbL289c8uga2koexUidKP2SYOkPBW2 PUftifKuhsG2LGcneSKsPzP1PPzqalCoWSurkbRe ieTnFmc1CLWdS282HPZ7rGpan7luNVV6PCEcRMAg BoXhOg8teEKhY723DJWiKIERGMGqiOg5ODBgnfDm jhNpbLFSe263N392f8hfICVzyeRlkLqQrtjow7dy Q631VZXlmTZlnnZvChGqLTOksQNrbQZ3XSFgCY3l oklfVPsoIZnlJQGbmfS5RJWvkGRtU7HhVTZfRJ3f xbhzRFR3XSnwLZZcSJN0DpUrFTWjq8Ycypu5UjFy np0zhl27FMT2a5BvxRukUQM9VVX2TqFfBw1uaMLo ZXEwZG0cRhJqvVSsOLGird70bUrlRUnuHCG4LXFd dkXwg5Atr2ctKqTxbsEuE3juH9WsPBGcBPZfTCIf AiHhrsNce5Aat7SusYGgzMi3v6wvQPHqFIYuzSfg p3exXPM7AVQwdHByC5cfjG4nOMIrAF7bkvgvu5oi LHkyKAyrUUIgdGS6irX8TCHvyUQcS3JhrG3aVFDt ONhaOHWigrd7AiJaRc7izWHkcDmvBCpcUzckRUhd XHBnbmNvbnRccGduZGVjXHBsYWluXHBsYWluXGYw XGZzMjRccWxcbGFuZzEwMzNcaGljaFxmMVxkYmNo WSGmALfmW0usNsUjPyNyZue2LCSinDJzXWCeUpq0 MFXxrYDyXIPHuXunwB3gICTlrGbkkJ0mwZP1UFHk ckDoxPEUlN9sMBCOyP1rRrZ4TWDcFbq7RIN8FzQb cGFyfX0= CPT Code(s) (test code = 3357) u0ixnAOzVPEewPV3FwSpDRRee3oat3BkxZLt cGFy QFgxsYOztjMjyz68qVT5vV05CZ4xWQBsOpS9WHSj fnQ3Fmr2WZPcLMJcjLByU938d9oxx4jujjHjaZX0 aIrqFWFldjmlAgN8WSarKYEpxgfiURs3CIjzIPHz uWD9DWHxoDSeF1HgJHCkHN4cirq9MIJ0GWlzMKQr PtF1IHUouNQqZNItsUxlMMioa963POP1JdXoMUCl xuKyjZnbaP1hZgUnSOQ3FAOsINrdYTQ8 CLINICAL HISTORY (test code = 3510) u3hohGFiLJKyuOC2HdWsBMQdp8sse3P sdHBncGFy ARmwbMYslsSuje22aWE4cF24ML6lZIYwYoS6WAEe blK4Kth0ERBrQIUkxLZkW391s8xcu8ozgsNuiVD7 iIsfFPPwmhihUqJ6NHrrBAFuxmqxLMc2ADpoNLXv oYM5XSXovYIvA4EaLPXyCU7iecu5KUC5VCxeBWEz TuW3QBBnnDGmFAZhkGiyOHaqa460NVW0KbXkBERa utWtaLpbvT8lQvOaWQVCuNSpnPjrnAM4YKPvud6= GROSS DESCRIPTION (test code = g7lcwXUvEESbeOXXGGGfH5mlopIxYOVphZVb Z3B [id number]) tsehQAqyTZ6mKZ5ioKghpZVmzYFqRC9PTWZdSoSe LRHnvFYahlZzElSlINXnfMAikPC1XPNfYP7hkdjr IDjnTEtaPAJfkjZ8FSXnzBVqG6XhTTNnFQ6emomm GMJ6VIjqaG4qysGHMpkzQr6avPKvuDjxFoQpAtRt KHToHOKvFMHmlPerBYNwYOk3jW7KEdlsPKD4CBUX KbdtCSLbOV6Hw8ugJEAiaSBlXXH0NIdjoHLgETDc OTWyJAk9LXYvVHpbgBNtEJ5odXewXwfqgQthj9If wPZxETcvNYWcFTIcRMvuLDDkKX1OHvChMPLxTtE4 ZaLcUXn0DEo7WA3ERbRuXHHcVAW0UeX6LOXcAOn1 SHgtFM4BRYPwTkh2SKurEsX1AJR6FmEpZJWnBjDl GMNuIFJiNWgxQFtazRCoSS0jhEoerUKluhPYFrII eKMmYZ64YkpeXDSxBRmzTTOuI62nc5YHk1NoMD3J HXk0lwDsjhxixQ1lKREqyrWjTTtxwLAiZ2ljMiKx MCBSZWNlaXZlZCBmcmVzaCBsYWJlbGVkIHdpdGgg fIxaUXLwkDieodVbU5G5hsJqBZ9eYEYeFJEbI4Yi IKXjD28gRQKbkO1oARMdTZ6mCGKpuTFyFN10PkAz geMtOM0tMICsb23mWaTOiB2eiSFgMWQuTZhYXTNc g9itEU4yOTCwVDNcaT1xFN9kHBR5tbxzIeH3Kcqm uNO0SaLeqRBqCbQiC49gPQMAyMGfKVL4oXOfCTfv GGsdr8StcZKgKCE5xWJxTUBlIHPpUp30TKEREsJC K7NnXXM5VBRhPRhrCSCafWVfyoqtRUGYOiApONDF D7DuEgAoNEGqeo1ddnLypW57w4mmFAPpYVulQEMt a3MiPaDkEu9iv7WzwXtkqtLeGCLvSOE2Ve1ttNDh IK0aii2trcQdyzv6VojtlM0tIHcthC5hHMOwSVew KOWxU1AqwM6dLI2PLfugRZUyQSARB6OnI95zrEll WVCXOdtmxFPeacwplKhlNfYztZHuYdMhvUyfjW61 VCEuqNNxZFL6TH7uPVGwcrjdMWGwWIEbCLG8XUjh bH48yIUzCJFvUBUrwXQoeV6LGFKhJOG2HTuuyO25 kZPsZD3MCAYvARD6KZQrmLRsETB5MU8zyK2KfE== MICROSCOPIC DESCRIPTION (test code = a7hsfGGiCHLhhTC2MaAnERGwc4osw3 BsdHBncGFy 3371) OZxozSOjiiXjwo01nPT1jA17EU8hDKRuZiD2PBXb hcU3Sbe8NDVdOELbzNEmO403y4czl6kunnOipLX9 oHtrZGUjbcepNxX3XVhvYTGgegznHDu7KEtqGZVd kXR1OEQrjEShJ6UqXSNdOC3xpzd7WCH4HIneYEGt VnR5VGUscQHsGXZfeCtrPBmuf721VMP0YrRxYJOd spZoyVljyH5lBoBwLXPBt9UsKUZmtUrwRCJwHG5i IFxwYXJ9 Gross assessment was performed at (test [facility], code = 2777) Department of Pathology, [address] [place] [address], [place] [address], Technical component was performed at [facility] er, (test code = 2778) Department of Pathology, [address] [place] [address], Professional component was performed at [facility] C enter, (test code = 2779) Department of Pathology, [address] [place] [address], [facility] [id number] 12:00:53 Test Item Value Reference Range Interpretation Comments Case Report (test code Surgical Pathology = 104) Report Case: [id number] Authorizing Provider: Jeannette Aelxander MD Collected: 12/13/2021 11:35 AM Ordering Location: [facility] Received: 12/13/2021 12:40 PM SERVICES Pathologist: June Esposito MD Specimen: Explant, previous intrathecal pump DIAGNOSIS (test code = j0qynEGcIVTss4odRMUhwOZ 3220) uZzEwMzNcZnRuYmpcdWMxIH tccnRmMVxlcGljOTYwMlxhb pOrQFFwyVGlF4SvgeieEAly GU2gJQ1urZewqACgdPGtWYG fRrOit0ydl314yEFeu8kdPE UYiucuvCs7jLhoO56rk4M4A sgzW75eiPFxPLR6UUKlAIXc mGUtYEZaQKG4XTHgsELvX3a hLSEhCX0duchdCPadGCehHN CtoJQ3KKOybVYuA3PyMGUgQ GxzOAFhynt5JbRoUc0zrUAf eTcyMFxwYXJkXHBsYWluXGZ zMjAgTUVESUNBTCBERVZJQ0 KiSHZOWm9AYJZMGDWCIzEyF G6VFlLGQFRGMKdjUOLNJQXm UIFDIN5ISXp8QGghmgDpHBP bLAYlAF9ZZCqEPTtjOXHPVT CUCYMYWjIZPf3BRpHURBQDK ElGSUNBVElPTiBPTkxZIChQ MNULX5GlI7IMKFzHS3FFRDO EM6UUYDKYGK5RPBtqVYFqjX QidKprmpQpSBtor9MhVVpbY IKcZR8cmIsrXHLdSD5wFAVj M3gthK7zrja1JrSeMOAlHtO 7HIHwnjV3Pzg9QETeFZuoh9 nhs0TaPNKeXLq2bUqkXlXaD KBxr3sexpMiOiRjYNFuQLLf ZPTzqXUaY945z1aag2isfwY ebWV6BYMfOVW1SDtyshRbzn M7NKnfsLPzDtW4BIlkcpEhJ QgvxoQngdZaSej3LDZcO008 RRQ1fTuqf4kfWON7IKHaTDT kEvQsCn2fkMIfP182WJDkFS KELQEaoPq1HNJntwPmpoKag QNWz291P175l5obDYBrpmJy kDkPpqsbx8xiX880PASaxYG yjlOhKiIxTRObvKJvcUN2ZM WqUS4cinkiPDpiVBkjDQIfb gZ7QKBtcMSiG6UtFHUyQT4k jcydQCO4GFkzQBZuAYD3GoS cSMWxf8Aycsb3VbLmrc8ptm 92OPH1y2VjqZevNIY4BGY2S mPeIe9tiIJcEJDgWB9vMdTu yJVkPLLkpz47fZwzKKuiFVF 2RYIhfnLei8Xfc4weYhHfzp MpB3gvL3CzEWXvLOWxVKJeX uQrbdIwx5Ycu6ZngVZhnVu6 c7spWMNgTFGfsUgik6vzCUJ 1NOGevSKqV4cubA4mTJLxFJ 8jacxoz0deXGvxLDbpADEoz VQ9ynT6EEXxwSAfF1AnaD3o ISMrIXkpTAHxlcv0WyGxGh7 vdGVyeTcyMFxzYmtwYWdlXH BnbmNvbnRccGduZGVjXHBsY WluXHBsYWluXGYwXGZzMjRc cWxcbGFuZzEwMzNcaGljaFx vKGnlYtArKCTnPDbxY6npOj QbYzQjJyb2KHKasAZjUFEiW sz9LZEitSNeJCABtMrntL1w CHLycBqhhH6neCW8UCNptfZ yoJHBqE4fWMACyO5rOeE3AW ZvAhx6EFB3JlDdjJMxfK1= CPT Code(s) (test code j6xkmZUuMRXfkTW5QmAhFVW = 3357) xq9gko3KajZFnfJLmBEfmwG OqifFupo07yMI0lU68BZ0wE DLhOyU2AEGantT4Mie4TERn VMYbjMBuD055e8mqk2uednR jxHT0tFaaBRFvdeamTvD1CJ gwAKTxbdaaWYx9NIxwKJHre AJ1BEHudKVtY2CfCKVeDS5j ias8NIZ7VNtfUUZgWvE4OSN inNMlTPLjaZzfQQyks068GT X4FkEoGBUvadBtwCrlfD0bF iLtRMM8CUWtTUedKSF1 CLINICAL HISTORY (test k1wyiPXbHLBwlPD4MsKkBDN code = 3356) cu6lcf0IugWQlqUWgTSzkdD NprxWecr59hGZ6cF64BM0sP PXdKbR1GLVrvbO8Whu8TTDd TGLhvZKkC201h3kmr5amwqB ejJO4rLnoOEBixxohBjR5UO cgJIAdkdnmACx5GVdwMWRkx CU4TUIvdOVdS7TtYJQpTT8b lqv8YGI0XKtmOYYjAhI3AVQ crSNfQNSyvPtmEFtyy925PO V7StUsNLMconHtmFuqsJ7yY eIbGUQEcZYkmNqprBL5YWFs cn0= GROSS DESCRIPTION r3hhaFWkMEVulGDJKJSoO8x (test code = oetPqRAPmoDPgX4SoopusSQ [id number]) vwZU0pEZ8iqWqxhDEofBMwZ U7UTLLbTfViLVKdaCLhuaWs SyWaVCOplKIbgNB2CGTeNY0 wrrwiMOnfVAguHGJbpzP1ZD CdwQHeP3EjSDQtJR4yvfadA MY4QAmqvS9xpdMJXrtvQc7s dHRibHtcZjFcZmNoYXJzZXQ hPREvcIzeVDJsEQu1hI4ZOg pwTRU1CVNAEfxiPAWdCZ9Tq 4gcXCSzxDBoBDT5ZThuqGJh PTDlNBXuTKk4GFYbSTccpRV tDO7ujNqzXegcbOnec4PeiQ BcXGlkIDUxMDAyIFxcZGIgI Y8DCuSlCVHmWpS0EvHgBEd1 BKb9NE3DGbDfLKKgOSS7SzH 3XOXfLUh8PNokDV9CLQPyZy t3NIuxSiF6CAM1HmUhXYJlP iBcXGYgQXJpYWwgXFxmbCBc DX5qqQbitJYgjoUBFlGNzQX gET19AcdfZYLcKWraAZAbF4 4zp5BVl8WtQZ0IZRs5fsSlg ysozC1pIECgtzOvURscoTVk T9pfDnWpXUJUSRLqwVJpBFC mcmVzaCBsYWJlbGVkIHdpdG pkgJwpGSSavWkphpSmG1I5g zUrEL2sHRHrGWGoM5OcKWBl Z22uWNSmsW0dQJLgUX9cOMW aiHFqBA91SkMxiuJuPL7zQN Btx13oXnEGoH3pkJUuJBVrC CaSLUGlq4lfQM9hMWLrGVEa kD1xJQ2fLOI0jwptObT2Gui jiIP0WwTvySRtXtVmP08qSO HDhPYuWTF2lOKnNJqdFUnyb 5VqaVPpTBD9yHKaPRJbJWCp Nw90HCYIUgRGP8SyACA6LXD xIEggTWVkdHJvbmljLCBJTk EhPAXXQ1BgVjApRSAnxj4bs yPzxB03l4poUDRfAYzhZGCv p1BoBoGvGy7sf4HqjCryriM dCSKsLSL2Ns9ejMNaZF7nna 2lopTxaeb1UkmexH3iZRwhi G0pFHEkKIsqUUXgJ2EdrU0t FP3QZljrABNrUMTNL7GyH10 cbGluZSANClxwbGFpblxlcG xiGpMhhJNmOaVkzBrzwI83M ZVweEZzKZU4AN7aOKNyjlhr MEOqCBRzOXI5HOjrgZ57aMB rPUQbAUUnzYYvmP8AOBOkTU M7MOzkuA66nSQfPL7ZFRNpL QB5FWYbwTRpGDH4AW9dmK0W fQ== MICROSCOPIC s0zbnYExSVDuqCA6MsXgASV DESCRIPTION (test code wn4quc1GgdNOwgVAeWEfyvQ = 3371) OiojEkbd29zAC3bM66TU6uX JIcAbW2RCLivuJ3Jzf4YJMt NYIsqZNbL733e2bmp1aakzD dyRJ3nFvzRBFgmmxgXtY0CA joCRLwjqvyODp5GLvmRPJrx AN5IWYakAZfG0WtMJHqRO1i mrj2YON1OQfkKJKxIdC3DMN dbTYrQUMfmXmuNJhfn230AJ R5UtSdOHTzwwVcgQrptJ7aL gYhJQKLd4SpDMMznHeoVOUl ZK7sUTbhXNN9 Gross assessment was [facility] performed at ([facility], code = 2777) Department of Pathology, [address] [place] [address], Technical component [facility] was performed at ([facility], code = 2778) Department of Pathology, [address] [place] [address], Professional component [facility] was performed at ([facility], code = 2779) Department of Pathology, [address] [place] [address], [facility] [id number] 12:00:53 Test Item Value Reference Range Interpretation Comments Case Report (test code Surgical Pathology = 104) Report Case: [id number] Authorizing Provider: Jeannette Alexander MD Collected: 12/13/2021 11:35 AM Ordering Location: [facility] Received: 12/13/2021 12:40 PM SERVICES Pathologist: June Esposito MD Specimen: Explant, previous intrathecal pump DIAGNOSIS (test code = i0zbfJUuZFIuy2euSVQjbXI 3220) uZzEwMzNcZnRuYmpcdWMxIH tccnRmMVxlcGljOTYwMlxhb uZwQUUgeSIuL4HcrxuwICzq BK0lUO5adWpexGOuiNUeMQP gFeAkp9ewq616tKRyd6xwKY OWxaiqwIt8cNbgY95qw5N7F pidB21otPFcYLS5NLLiPDPn rWAgMYMuJRF3LWOmcNToT4y xFSBvCP6tcinyLDvmHOiuIU MnbNU2HIUjxQEzD5GvSEIoW AmfBRUvqpl5QhEfLl6yyTUy eTcyMFxwYXJkXHBsYWluXGZ zMjAgTUVESUNBTCBERVZJQ0 YzMDMNQd8UHNNJONENUgYvD D8WRoAPBFJODRyeKTSFPXNl HLYWLT2RNRf7OFnwkaCiIMI mDLKsRH3PNKoTXBwsIQVXFF ZAEHHCHmDVWa6YQwHNYUBSW ElGSUNBVElPTiBPTkxZIChQ CZADK0SiD3ZICFpLG8TZFXE BI8TCLYHRNV2QQEgbDJAntA IyyJfitvPrSTjou5WrMCtwA FPbXO0njDcfDNNcHX3vPRVc Y1ktzG1dmkv1TbAiGOFpFgX 2FDIuhwV3Qjk2AXQsMTgzv8 rmo0WgKAZqVFj4uJprThCyE TUxh9nxmrVjHjTvXJNwJKTr PXRzeKWnR082c8xbg8ttskT lfRI8QDNxJMR5FKnbyeChad W2HRsaxRDwHaT3QMujxyJeG SxcmvSkykSnZcb7YXByO042 IOL7xDdgu8qzZZG8RMWpURR wWwAtCh1ofQUzY156CJWwWY BTHBPysQx9YJUsbaUjhmFle HPAm443J420g0iwABExfaQe xXrOrmqxs2nzO397ODFrmOH jumYiUlVeKHSiqABxlUE0UO MeTK7olexpCGsnWOlhMOGvt zQ4JASgfWWeE9HiRFQpQM3a vdlbTZT5LPrfQRLgUXW0VnV hXPXge2Jivjp9LgRtgn8kdw 36TFN0c7WxxTfpFEE5SKJ9V aXvRy9ubMKaXWOdBI7kTvFz kVEuBVWour69zAlxKDwbDSI 4AETnixOhd0Vjf4wrEjKzue MvM5ebO2YcXJQpZYCmVMYyP jTdcqVnp4Kxx2UwcTZefRy3 t1egGVPlXGQrqTnbi9avXYO 1WEVwkYBgY4ejxH1cWZJnGE 1eyrgec2wtGYfqNPxeJWUws BX4puD3ZBYphZXjM6OcyB4a OOTjPSvyHAUwatl4PnHmNe3 vdGVyeTcyMFxzYmtwYWdlXH BnbmNvbnRccGduZGVjXHBsY WluXHBsYWluXGYwXGZzMjRc cWxcbGFuZzEwMzNcaGljaFx jNWbrCfRoYLVtOBeaY9xjAh TwUkHeJpg9WKRtdTUpEYOpB fa1JDWjvSOcVUEHoIzlpZ1f JADiaKldhX1daVC9LYRltdQ gdVLWbU2yMIPMdP6iNcZ0UE SnLzl3JWX1XaXtpSDrgM0= CPT Code(s) (test code t5tifQCqKKDhjEN9PbKbPTE = 3357) fv4yfa2AhwCHyjALpSXfzbS AkkzOfax98rBJ1qG52FL8nX NOnWxR7AIRbtkY7Wbg0IZSr SPKbnSEfY447e3fcq9duhtI kqWF5nKerJCDfjonjQwG3WK qrHNMtqspbERv9GVigIYVrj YM0UJPevCFpC2UlRDHxOD1l rjo7TQW0BVmtRJAaXkF0LXO bwYBeKGYaoDhsWWpsm318NB V8KgBpQJXbvoXlaFjmqR2nA mWiHAZ9OMKvQDeiPIB2 CLINICAL HISTORY (test n2zmnGEkDYSlmVW4LdWbIYA code = 3356) sc4squ5IlcZIffVCtNZhmbW ZmbuBjth05pPA8bT23XV5eX WAiKgM5DIGtqgI4Bey2NZVs JUTayWJbW967p1dvw7ukrpR gmIC8xPiaQZSgsgpkIuA0WE yaXGGulrqdZGv3MNbbBLMxa TM3ZBGqfCVrQ4EbLBTwGC0w ebz3WUW0MTsgPCVoKgL7XEF dbXDvIEQkuLmoDEmla661AI Y5IuMyOHAebeDffVgrtW7oO nTnBISYpXMwnHqivQL2NYZn cn0= GROSS DESCRIPTION h6jevAAdPMHhwTTMPJMpK6r (test code = mynKrDNMyaTXsZ8BmfjnvMN 1199827697) srQM4mMO3vuOgjpPHazUDkZ N0FWPErWmIgDYJvjYEyxsUs LnWqWGNenXDszZE7KSJxMC0 jvwznMZfgSDlmGDKpopJ5ST GelWUcE4IcYDJvGR7fuhpwH NU9MGqttW6yftJOPkkpRe2y dHRibHtcZjFcZmNoYXJzZXQ kMFYveNojPRVkBQn0yP7IAp hsWUQ0DPQEKcxyQYHxXZ5Nq 6gqQNPjgSJfWXN2FEztlTWh WHNsGZGkXSy0HIIhZPqomRO xEM9qhSaoHcvjxLbpb7VmxM BcXGlkIDUxMDAyIFxcZGIgI V0XCpEqAMUqBjL8FzSmBRr9 ASq0NC9GWlXdYODjYZT4OkL 6KIZlUYj5QNcgGD6MVLEpEf n5DMymCxN6SBN0NnOiUOHiO iBcXGYgQXJpYWwgXFxmbCBc GN5emMfcySOstlYLMwLCvFX rXG59RckgVQFfNHenYHZdW9 8mr6ROo9MvYO2OQIy4auCiw khnmH8oANLnimWpOQvrpTAf T9xtGpWaSXEJNWCtpJElQLM mcmVzaCBsYWJlbGVkIHdpdG cjrXtmWOObzClahlMeK8L4r iWjZG4sKCUdELIeE8IjOKNm F34eBJMmzW1jQSXqDO4yVXX ynUKyAZ02XtHygmCuKP5fTF Dnb60aNoRYkG7fdZWcVASvO ObYAPWkp1fzMI0jWHCcQMFm yW7tSU2bKZI2vbvoTwE8Nlz kbYJ6YnGdgMXqDkGrH32sYV RXaMKoEXS1hLDrFRuhXMdek 1IbtMRsEZX3tDJeOMOnTNXl Rk91UONXKoJJE0VrEKZ2WJA xIEggTWVkdHJvbmljLCBJTk YbWPMLX5AkGyCxAWXljt0aa aUidI32n6tlCLSzIDduRLSj b2TuIyPsQy7ns4GvjWsngzR aGEQcUKK7Hw3rgLLhLB2ikf 4umxDtbxe7PwsukN1wSQjwi P7bVMFyJKoaYPYkZ1IcuQ3o ME9VExfcGKAwLTMRG3QhS41 cbGluZSANClxwbGFpblxlcG kjHnPtqDDpPeThgKsxrW52B RKbvTMgGDH1PE8xEZLihhhe GSHuMEOdJAJ3UShoxA12uQH mQKPyTQByuYBglE3WNKWfDT Z6JZchoY04vVEgGB6NYFBkH GJ6HXXhcQCrEUK4OT8cuO7R fQ== MICROSCOPIC w5pgdWZtRKAbsJT0WmHsFSK DESCRIPTION (test code af9rny8RoyGLgsCYuKXgviC = 3371) AlehHsyq18zQO7sB39SU0yS FSiUlM1GIZkarO2Ehe5LYZi FTJycICuU072t1ydh2zxruY kmLO0fQcpLLDmdsxgHbE6PM aoWSNanzybWBo9TXhwEIDvv JG9IZHyzIIyI5LwWMNqFK5l bio8WQS1OWfjEPRhBqS2ITN xoHYrZQKmeKbcQZuwr402DK X0XyOhZUBqbnRkvUjizL0gL tUeCZWEc5UmMLTptFzaGMAn XB3rZIayBQY5 Gross assessment was [facility] performed at ([facility], code = 2777) Department of Pathology, [address] [place] [address], Technical component [facility] was performed at ([facility], code = 2778) Department of Pathology, [address] [place] [address], Professional component [facility] was performed at ([facility], code = 2779) Department of Pathology, [address] [place] [address], [facility] [id number] 12:00:53 Test Item Value Reference Range Interpretation Comments Case Report (test code Surgical Pathology = 104) Report Case: [id number] Authorizing Provider: Jeannette Alexander MD Collected: 12/13/2021 11:35 AM Ordering Location: [facility] Received: 12/13/2021 12:40 PM SERVICES Pathologist: June Esposito MD Specimen: Explant, previous intrathecal pump DIAGNOSIS (test code = v2aykOVuHPVoj3lxVMKwqQY 3220) uZzEwMzNcZnRuYmpcdWMxIH tccnRmMVxlcGljOTYwMlxhb yMvQBUmtOPhN7QslymvMPgc DV2qCK0mnAgagTGmqEAyAAU lSbQif8tca968cNQoa6wcEE SYyhltcNs3qSypP42tm9W0K ihrS58sdISlTVS4GJOoCEYl kJSqLITmZJW7FRHlxOWwB3i oMCCjSF9htngrFVomXZeiQN GqjVM2IPXmsQTaB1NzBGBsL RmhICFpgll6DcZuJf4qtYXc eTcyMFxwYXJkXHBsYWluXGZ zMjAgTUVESUNBTCBERVZJQ0 UkRLHKGj1OGPFTBPRAOmOsJ C8NMsUHIWBHCJwzSTNEXFCr XPNHHX1FWWb4FXlyweCvINF nMTBrFD8ZSVsQOAslKBNDVC FYXWJRXoBKUq3ZYdRTWXFWP ElGSUNBVElPTiBPTkxZIChQ LCDIQ0PvH4LSWBxUV9ECCCL RR8IFIQDUJR2UVVdbKMUhtB FgtIyxkeZkOOkwr6KrGFutI XBmWP7vqAilEOAwWV6pYZDv Y2hgoP7wnzv5UiDuMBPdNeR 9JYUisjB3Uqt6OASjCBnrj5 oij0FgUGNfXKj7kRooJrQoQ YOqb1btgsKzRjHnVWBfEJKq PCUfxMJbG807o8olu7iwasI rbBS1ZVLxFHS7BFrcudRgac B0DIlfkELiTtI7NKwohsMxU ExairSpetDxFnn5MZZiR581 LMX8mYyyu8yeHLI2ZJVgNTW zOaNlDv9qdFLmC086TNAxDS QHQGXglEf9DFAfopLzmjTqm PISo903A402g0bcTHFrhvUl tKeEklimt0mcH162JNPbmCH zivBvEnMlMZFvpYAesCJ3IV YvXP5veriyAMzcYAuoCOFhm cI4YHYzfHRgL2RjRNHsTY1l geweLWG2YVnvONEoYNC5NkC cGMGfe8Ardrj6WdExaa6vuv 94KTB1m8FlzRjmLOX1PYH1S aGgLj7vsYFaWANqSH1eEsJx wGAhMSJomu78vKkiPAcjCBD 3QXYatlFgn7Csx6tlZhKlpi VbY9ddO7RsKJMjHIOrGPJsM nPtcxZdt2Nfy0XgoZKvuWj3 r6ddKWHdDEYliGhmt6zkJUB 1UKLnyUJfN6gjiS0xARNzGC 2nnmyli2fuHHdkGCicZYScq YS8mrF9NCNybIWtY6MkgU9x PERxCXibEUVpyku7TxEpGp9 vdGVyeTcyMFxzYmtwYWdlXH BnbmNvbnRccGduZGVjXHBsY WluXHBsYWluXGYwXGZzMjRc cWxcbGFuZzEwMzNcaGljaFx eLGrcCcTrIWIqXOkmI6tnVa SyIcEmEfy5AQDftBMuJVQrR oz2AEAdkUQfSIYKiHpgtJ6j CXNcsDmwrA8nlUI2PQUzyqQ hsZUJtZ4kGJLKvE4fCsB5KL RyJyq1EOL2GbJrqYKabP4= CPT Code(s) (test code z2zghUOzQQXkqWN3NsHfAFO = 3357) qu2bwh0EcvAFfnWQtJPdlbW KygtHzdo43aMY0cD96GM5xS PZzOyZ3KVPbgeR9Oin9USQb XUTgpWYeU368f2vkt8mvneS igAZ3jBuhKSUszerpLlU6ER bzYXQdcqpdQAn2LKssMUWie XD3YZWiaPAqC4MiADBnNL9i rzb6TJL3OYgmJUIiDjL4ADS azVMtOEHulPpeENrip271VE O8MkHcDWVuvrPolVizkF7fN jNpQTY8ASUtBCthZZF3 CLINICAL HISTORY (test n8jcmFRbGVCrjOC2JmElMPW code = 3356) bm2bna0GetEQhpIQaSXhyuI MhcxNbbk97wDH5nJ28AB8xT MDyQcY1RDGstvL3Oye8IAZm LNZtzVMzL169c8hdb6zxbsC mwKO3kHiwZAVrewxdBbQ9DW nvDPWsojktWXz3DDrcTDVoa LK8FOMvxVGdT9RkMNJxGO6y vru5ORO8JCxgFTZcSzZ8ZAE zpRIeUYYinCigUHzld628EM N0JdSeLXVagtZrfHtpuY7kH mQlVLRSoGJexHrpyLW7LWOy cn0= GROSS DESCRIPTION m8knnHQmHAShmRCTZEAhF4p (test code = lxhBfIZFxyPXmV0RjvmriBB [id number]) vySO0qIT5zoHtcxROwmJIqE B3TDDDxXcOfZPRfjWVdwxUa DhBwTOSuzNPvmNZ1RMWtSX4 nbqdpBFwjYGxwRPNndkV3WE QqrVRxL1RnYYAnYM6ukhhwM PV9KAzwzF2zbcIACwkcLm0g dHRibHtcZjFcZmNoYXJzZXQ lLAMvfXtiHFWzWKt4dK2MCs sdQNA5MLVNVkopYADnGM1Fy 3djEXEupYKsNVO7VSvwbKGk IFWlHAMsLLb1RJPoUKdjkND zFY4anWhkCfvevRzji5IbbE BcXGlkIDUxMDAyIFxcZGIgI Q3NRuHcJIWbHrM3AxNeLQj7 NLq2JC9SQwLgZZJaXEG0JoU 6CCHvGRm5QVkpLW6AISTlQl c7TYppLwI0IVA9GcTlNAVjE iBcXGYgQXJpYWwgXFxmbCBc BT9luLholOPibxIFXaBEyGR qWI88MiezZRSqYMxuTNFuQ0 7mm4DCg1UqKS2HYNv0xuQyv ftwzN7kESAbsoRmVDobnFGe K8fkTpCbUOQOIAJigJIyCZP mcmVzaCBsYWJlbGVkIHdpdG wskEezMPRpcSwzmoGlN3F3o oWrAG3qPMPgJIEjS8XxJBAr S57jEFRokU2dSDFpFY3oVGE cbTFgIY84MbBqxqKwSX9dMH Qos80xVeUPbA4jrNJkOFUhI SkUFXWlj2gaRY1sEYQdIGSf yL8dUT6aDCQ8gkkgYfZ8Jdf ykBD3QvYqyRJeImBbC47uTC MMbWRwYFM9zSCiRQtgQGizb 4EveNXcVCZ7oQFuQNQyHDEq Fn68PGOMDvLSR0QlELK5AOW xIEggTWVkdHJvbmljLCBJTk QwMJGSC3GoBlAuFPWdsm1lq hZdeO41t5yoMKPeWDqsEIWk m3ZuOaBmWv6kc3PohFijidX tLFRfRBO9Zx5maIYdXU2qqa 4xmhNokzx0DzidoO1lEHdux J7bCWFzIXaoTFNsN1FpnA8s MD8MUztjBZLxJDKPO7QcZ42 cbGluZSANClxwbGFpblxlcG btJcXluVZjYnYpuGfmeE56R KJkePAqXDE2TF6kRLOgfacs MFYoYPQfKBJ1GEhbbC32hZT lBFLhNJCtiLTozW2RTBHpQZ J8BZaplH85xOHfWI0CALWeJ HD3YKZelIKlVLJ5BP0fmF9R fQ== MICROSCOPIC k1djqNEvMIIgsUH0XeKoXZP DESCRIPTION (test code ta0ilp5FawXLtmYXzVMvezA = 3371) VabtWwgv04hEU6hJ98SU8cF HEaIfW3YYKtpfH4Yqz1EWCy UBCujEEeU860w7biw3rhqiO thZS7vLubSNQkevwrHzX4RY cnGWNniidiOQt4MAaiSWFry EN4BEKirZJzF3LxIPThVF0a fzk0HYX1TKofEAUrGoK4LGQ lpFXpQBPkyVusIXwqz306RA C2OvRgNZRqbuWlhSzgvA3xY nGaMVWMa2JvNXPkkElvSMVc BO5lGMjpSUR8 Gross assessment was [facility] performed at ([facility], code = 2777) Department of Pathology, [address] [place] [address], Technical component [facility] was performed at ([facility], code = 2778) Department of Pathology, [address] [place] [address], Professional component [facility] was performed at ([facility], code = 2779) Department of Pathology, [address] [place] [address], [facility]byterian[facility] [id number] 12:00:53Surgical Pathology Report Case: [id number] Authorizing Provider: Jeannette Alexander MD Collected: 12/13/2021 11:35 AM Ordering Location: [facility] Received: 12/13/2021 12:40 PM SERVICES Pathologist: June Esposito MD Specimen: Explant, previous intrathecal pump [employer], SUBMITTED "INTRATHECAL PUMP", REMOVAL: - GAMES [employer]ER FOR GROSS IDENTIFICATION ONLY (PLEASE SEE GROSS DESCRIPTION) Signing Pathologist Direct Phone Line: [phone] signed by June Esposito MDon 12/16/2021 at 12:00 [id number]. Explant.Received fresh labeled with the patient's name, medical record number and "implant" is a Medtronic SynchroMed II programmable pump measuring 8.7 x 7.2 x 2.3 cm. The device is inscribed with " 8637-40 SN [id number] [employer] [place]." A gross photograph is taken. No sections are submitted-gross only.NATTY Torres, FRED (ASCP)cmNot applicable. [facility], Department of Pathology, [address] [place] [address], [facility], [address] [place] [address], [facility], [address] [place] [address], PXN-Glucose [id number] 11:21:43 Test Item Value Reference Range Interpretation Comments POC-Glucose Meter (test 149 mg/dL 70-110 H : TE STED AT [facility] code = 1538) [address] [place] [address], [facility] 30: Dot Etcher/Techni charmaine ID = [id number] for Umeh, Akumbu Lab Interpretation (test Abnormal code = 13649-6) [facility] [id number] 11:21:43 Test Item Value Reference Range Interpretation Comments POC-Glucose Meter (test 149 mg/dL 70-110 H : TE STED AT [facility] code = 1538) [address] [place] [address], [facility] 30: Dot Etcher/Techni charmaine ID = [id number] for Umeh, Akumbu Lab Interpretation (test Abnormal code = 90432-0) [facility]ucose [id number] 11:21:43 Test Item Value Reference Range Interpretation Comments POC-Glucose Meter (test 149 mg/dL 70-110 H : TE STED AT [facility] code = 1538) [address] [place] [address], [facility] 30: Dot Etcher/Techni charmaine ID = [id number] for Umeh, Akumbu Lab Interpretation (test Abnormal code = 88555-4) [facility]ucose [id number] 11:21:43 Test Item Value Reference Range Interpretation Comments POC-Glucose Meter (test 149 mg/dL 70-110 H : TE STED AT [facility] code = 1538) [address] [place] [address], [facility] 30: Dot Etcher/Techni charmaine ID = [id number] for Umeh, Akumbu Lab Interpretation (test Abnormal code = 42438-2) [facility]byterian[facility]CT-GLUCOSE [id number] 11:21:43 Test Item Value Reference Range Interpretation Comments POC-GLUCOSE METER 149 mg/dL 70-110 H : TESTED A T [facility] 6720 (BEAKER) (test code = [facility] Marcelino [facility], 1538) [address]: Dot Etcher/Techni charmaine ID = [id number] for Sara Booker POCT-GLUCOSE [id number] 06:26:12 Test Item Value Reference Range Interpretation Comments POC-GLUCOSE METER 143 mg/dL 70-110 H : TESTED A T [facility] 6720 (BEAKER) (test code = [facility] Marcelino [facility], 1538) [address]: Dot Etcher/Techni charmaine ID = [id number] for KOBI LUNA BASIC METABOLIC [id number] 06:18:18 Test Item Value Reference Range Interpretation [...] not appl icable for dialysis patien ts Dot Etcher ID - GUILLAUME [facility] (HEMOGRAM ONLY)2021-12-14 06:01:05 [...] CT, CHEST WITH IV CONTRAST- PE TEST [id number] 19:11:00Unlisted Reason for Exam - Click Yes and Enter Reason Below->YesUnlisted Reason for Exam->postop desat, immobilized at baseline [facility] : 1970 Sex: MFINAL REPORT [...] 12/13/2021 07:11 PMRAD, CHEST, 1 VIEW, NON [id number] 18:47:00Reason for exam:->increased oxygen requiremetnsShould this be performed at the bedside?->Yes[facility] : 1970 Sex: MFINAL REPORT TECHNIQUE: Frontal [...] lateral sixth rib fracture. Signed: Ameya Ross MDReport Verified Date/Time: 12/13/2021 18:47:45 BASI METABOLIC [id number] 17:53:04 Test Item Value Reference Range Interpretation [...] 8.4-10.2 (test code = 697) EGFR (BEAKER) 112 Interpretatio n of eGFR (test code = mL/min/1.73 values Stage De scription 1092) sq m Result G1 Brielle l or high >=90 G2 Mildly decreased 60-89 G3a Mildl y to moderately 45-5 9 G3b Moderately to s everely 30-44 G4 Severl y decreased 15-29 G5 Kidne y failure <15Reported eGF R is based on the CKD-EPI 2020 equation that d oes not use a race coefficientEsti mated GFR is not as accur ate as Creatinine Stefani shantel in predicting glom erular filtration rate . Estimated GFR is not appl icable for dialysis patien ts Dot Etcher ID - BSBlood gas, [id number] 15:42:21 Test Item Value Reference Range Interpretation Comments pH, Arterial (test code 7.35 7.35-7.45 = 2744-1) pCO2, Arterial (test 52 See_Comment H [Autom ated message] code = 2018-) The system [facility] generated this result transmit yanely reference range : 35 - 45 mm Hg. The reference range was not used to interpret this result as normal/abnormal . pO2, Arterial (test 58 See_Comment L [Automa yanely message] code = 2703-7) The system [employer] generated this result transmit yanely reference range [...] 28 Lab Interpretation Abnormal (test code = 98835-2) [facility]byterian[facility], [id number] 15:42:21 Test Item Value Reference Range Interpretation Comments pH, Arterial (test code 7.35 7.35-7.45 = 2744-1) pCO2, Arterial (test 52 See_Comment H [Autom ated message] code = 2018-10) The system [facility] generated this result transmit yanely reference range : 35 - 45 mm Hg. The reference range was not used to interpret this result as normal/abnormal . pO2, Arterial (test 58 See_Comment L [Automa yanely message] code = 2703-7) The system [employer] generated this result transmit yanely reference range [...] 28 Lab Interpretation Abnormal (test code = 51214-1) [facility], [id number] 15:42:21 Test Item Value Reference Range Interpretation Comments pH, Arterial (test code 7.35 7.35-7.45 = 2744-1) pCO2, Arterial (test 52 See_Comment H [Autom ated message] code = 2018-10) The system [employer] generated this result transmit yanely reference range : 35 - 45 mm Hg. The reference range was not used to interpret this result as normal/abnormal . pO2, Arterial (test 58 See_Comment L [Automa yanely message] code = 2703-7) The system [employer] generated this result transmit yanely reference range [...] 28 Lab Interpretation Abnormal (test code = 38038-5) [facility] gas, [id number] 15:42:21 Test Item Value Reference Range Interpretation Comments pH, Arterial (test code 7.35 7.35-7.45 = 2744-1) pCO2, Arterial (test 52 See_Comment H [Autom ated message] code = 2018-10) The system [employer] generated this result transmit yanely reference range : 35 - 45 mm Hg. The reference range was not used to interpret this result as normal/abnormal . pO2, Arterial (test 58 See_Comment L [Automa yanely message] code = 2703-7) The system [employer] generated this result transmit yanely reference range [...] 28 Lab Interpretation Abnormal (test code = 31838-9) [facility] [id number] 15:42:21 Test Item Value Reference Range Interpretation [...] (BEAKER) (test code = 1819) 28.0 POCT-GLUCOSE [id number] 13:37:24 Test Item Value Reference Range Interpretation Comments POC-GLUCOSE METER 99 mg/dL 70-110 : TESTED A T [facility] 6720 (BEAKER) (test code = DELVIN [employer] [place], 1538) [address]: Dot Etcher/Techni charmaine ID = [id number] for Edilberto Velasquez POCT-GLUCOSE [id number] 09:12:45 Test Item Value Reference Range Interpretation Comments POC-GLUCOSE METER 102 mg/dL 70-110 : TESTED A T [facility] 6720 (BEAKER) (test code = [facility]ANC[facility] [employer] [facility], 1538) [address]: Dot Etcher/Techni charmaine ID = [id number] for SAMANTHA MORA Urine [id number] 14:57:02 Test Item Value Reference Range Interpretation Comments Result (test code = See comment 6463-4) DYAN (test code = DYAN) <10,000 col/mL Gram negative hnva23-71,000 col/mL skin flaquito [facility] [id number] 14:57:02 Test Item Value Reference Range Interpretation Comments Result (test code = See comment 6463-4) DYAN (test code = DYAN) <10,000 col/mL Gram negative ylzd93-93,000 col/mL skin flaquito [facility] [id number] 14:57:02 Test Item Value Reference Range Interpretation Comments Result (test code = See comment 6463-4) DYAN (test code = DYAN) <10,000 col/mL Gram negative shey73-00,000 col/mL skin flaquito [facility] [id number] 14:57:02 Test Item Value Reference Range Interpretation Comments Result (test code = See comment 6463-4) DYAN (test code = DYAN) <10,000 col/mL Gram negative mlsb79-01,000 col/mL skin flaquito [facility] w/Microscopic + Reflex to Culture 2021-11-30 14:12:57 Test Item Value Reference Range Interpretation Comments Color, UA (test code Yellow = 5778-6) Clarity, UA (test Hazy code = 5767-9) Specific [place], UA 1.030 1.001-1.035 (test code = 5811-5) pH, UA (test code = 5.5 5.0-8.0 5803-2) Protein, UA (test 30 mg/dL Negative A code = 86280-0) Glucose, UA (test Negative Negative code = 365) Ketones, UA (test Negative Negative code = 2514-8) Bilirubin, UA (test Negative Negative code = 37637-0) Blood, UA (test code Negative Negative = 50726-1) Nitrite, UA (test Negative Negative code = 5802-4) Leukocytes, UA (test Trace Negative A code = 5799-2) Urobilinogen, UA 0.2 mg/dL 0.2-1.0 (test code = 44329-9) RBC, UA (test code = 7 See_Comment [Autom ated 17621-0) message] The system which generated this result [...] Bacteria, UA (test None Seen code = 05016-5) Mucus (test code = Moderate 8247-9) Squam Epithel, UA 1 See_Comment [Automate d (test code = 24599-4) messag e] The system which generated this result transmitted reference range : /HPF. The reference range was not used to interpret this result as normal/abnormal . Crystals, Urine (test None Seen code = 75297-5) Uric Acid Crystals Few (test code = 1583) Amorphous Crystals Occasional (test code = 47549-5) Specimen Source (test code = 2795) DYAN (test code = DYAN) Dot Etcher ID - [auto]Dot Etcher ID - [auto]Dot Etcher ID - tech Lab Interpretation Abnormal (test code = 46206-2) [facility]sc[facility] + Reflex to Culture 2021-11-30 14:12:57 Test Item Value Reference Range Interpretation Comments Color, UA (test code Yellow = 5778-6) Clarity, UA (test Hazy code = 5767-9) Specific [place], UA 1.030 1.001-1.035 (test code = 5811-5) pH, UA (test code = 5.5 5.0-8.0 5803-2) Protein, UA (test 30 mg/dL Negative A code = 40086-5) Glucose, UA (test Negative Negative code = 365) Ketones, UA (test Negative Negative code = 2514-8) Bilirubin, UA (test Negative Negative code = 05236-6) Blood, UA (test code Negative Negative = 04663-1) Nitrite, UA (test Negative Negative code = 5802-4) Leukocytes, UA (test Trace Negative A code = 5799-2) Urobilinogen, UA 0.2 mg/dL 0.2-1.0 (test code = 09412-0) RBC, UA (test code = 7 See_Comment [Autom ated 68734-7) message] The system which generated this result [...] Bacteria, UA (test None Seen code = 47215-9) Mucus (test code = Moderate 8247-9) Squam Epithel, UA 1 See_Comment [Automate d (test code = 21244-6) messag e] The system which generated this result transmitted reference range : /HPF. The reference range was not used to interpret this result as normal/abnormal . Crystals, Urine (test None Seen code = 07763-3) Uric Acid Crystals Few (test code = 1583) Amorphous Crystals Occasional (test code = 61777-7) Specimen Source (test code = 2795) DYAN (test code = DYAN) Dot Etcher ID - [auto]Dot Etcher ID - [auto]Dot Etcher ID - tech Lab Interpretation Abnormal (test code = 65828-9) [facility] + Reflex to Culture 2021-11-30 14:12:57 Test Item Value Reference Range Interpretation Comments Color, UA (test code Yellow = 5778-6) Clarity, UA (test Hazy code = 5767-9) Specific [place], UA 1.030 1.001-1.035 (test code = 5811-5) pH, UA (test code = 5.5 5.0-8.0 5803-2) Protein, UA (test 30 mg/dL Negative A code = 58064-9) Glucose, UA (test Negative Negative code = 365) Ketones, UA (test Negative Negative code = 2514-8) Bilirubin, UA (test Negative Negative code = 48438-0) Blood, UA (test code Negative Negative = 71956-2) Nitrite, UA (test Negative Negative code = 5802-4) Leukocytes, UA (test Trace Negative A code = 5799-2) Urobilinogen, UA 0.2 mg/dL 0.2-1.0 (test code = 74231-6) RBC, UA (test code = 7 See_Comment [Autom ated 32811-0) message] The system which generated this result [...] Bacteria, UA (test None Seen code = 61587-0) Mucus (test code = Moderate 8247-9) Squam Epithel, UA 1 See_Comment [Automate d (test code = 89589-6) messag e] The system which generated this result transmitted reference range : /HPF. The reference range was not used to interpret this result as normal/abnormal . Crystals, Urine (test None Seen code = 12352-3) Uric Acid Crystals Few (test code = 1583) Amorphous Crystals Occasional (test code = 05022-9) Specimen Source (test code = 2795) DYAN (test code = DYAN) Dot Etcher ID - [auto]Dot Etcher ID - [auto]Dot Etcher ID - tech Lab Interpretation Abnormal (test code = 62072-3) [facility] + Reflex to Culture 2021-11-30 14:12:57 Test Item Value Reference Range Interpretation Comments Color, UA (test code Yellow = 5778-6) Clarity, UA (test Hazy code = 5767-9) Specific [place], UA 1.030 1.001-1.035 (test code = 5811-5) pH, UA (test code = 5.5 5.0-8.0 5803-2) Protein, UA (test 30 mg/dL Negative A code = 89434-1) Glucose, UA (test Negative Negative code = 365) Ketones, UA (test Negative Negative code = 2514-8) Bilirubin, UA (test Negative Negative code = 81793-7) Blood, UA (test code Negative Negative = 17351-7) Nitrite, UA (test Negative Negative code = 5802-4) Leukocytes, UA (test Trace Negative A code = 5799-2) Urobilinogen, UA 0.2 mg/dL 0.2-1.0 (test code = 51334-2) RBC, UA (test code = 7 See_Comment [Autom ated 41078-1) message] The system which generated this result [...] Bacteria, UA (test None Seen code = 65374-1) Mucus (test code = Moderate 8247-9) Squam Epithel, UA 1 See_Comment [Automate d (test code = 18575-0) messag e] The system which generated this result transmitted reference range : /HPF. The reference range was not used to interpret this result as normal/abnormal . Crystals, Urine (test None Seen code = 52707-1) Uric Acid Crystals Few (test code = 1583) Amorphous Crystals Occasional (test code = 69737-7) Specimen Source (test code = 2795) DYAN (test code = DYAN) Dot Etcher ID - [auto]Dot Etcher ID - [auto]Dot Etcher ID - tech Lab Interpretation Abnormal (test code = 45889-8) [facility] UR[facility] [id number] 14:12:57 Test Item Value Reference Range Interpretation [...] code = 1584) SOURCE(BEAKER) (test code = 2795) Dot Etcher ID - [auto]Dot Etcher ID - [auto]Dot Etcher ID - techBASIC METABOLIC PANEL 2021-11-30 12:39:15 [...] G3b Moderately to s everely 30-44 G4 Sever ly decreased 15-29 G5 Kidney failure <15Repo rted eGFR is based on the CKD-EPI 2020 equation t hat does not use a race coefficientEsti mated GFR is not as accur ate as Creatinine Stefani funes in predicting glom erular filtration rate . Estimated GFR is not appl icable for dialysis patien ts Dot Etcher ID - GUILLAUME MPT/[id number] 12:37:17 Test Item Value Reference Range Interpretation [...] mechanical heart valves.CBC W/PLT COUNT & AUTO [id number] 12:25:05 Test Item Value Reference Range Interpretation [...] (test code = 2801) RAD, CHEST, 2 [id number] 12:25:00Reason for exam:->spasticity, pre-op [facility] : 1970 Sex: MFINAL [...] Dasia Martinez MDReport Verified Date/Time: 11/30/2021 12:25:32 [facility] METABOLIC PANEL ([id number])2021-08-25 13:54:03 Test Item Value Reference Range Interpretation Comments NA (test code = 142 mmol/L 135-145 7263466553) K (test code = 4.8 mmol/L 3.5-5.0 7170192210) CL (test code = 104 mmol/L 98-108 9200361591) CO2 TOTAL (test code = 28 mmol/L 23-31 1176939821) AGAP (test code = 2-16 8200356904) BUN (test code = 14 mg/dL 7-23 7691970528) GLUCOSE (test code = 129 mg/dL 70-110 H 2232192387) CREATININE (test code = 0.52 mg/dL 0.60-1.25 L 2430241507) TOTAL BILI (test code = 0.5 mg/dL 0.1-1.6 8818520712) CALCIUM (test code = 9.1 mg/dL 8.6-10.6 4086378730) T PROTEIN (test code = 8.3 g/dL 6.3-8.2 H 7983086610) ALBUMIN (test code = 4.4 g/dL 3.5-5.0 8087369600) ALK PHOS (test code = 116 U/L 34-122 3015538914) ALTv (test code = 52 U/L 5-50 H 1742-6) AST(SGOT) (test code = 34 U/L 13-40 9345869172) eGFR (test code = mL/min/1.73m2 4235405169) DYAN (test code = DYAN) Association of [...] tests). Lab Interpretation Abnormal (test code = 00923-0) [facility] 13[facility]53:43 Test Item Value Reference Range Interpretation Comments LIPASE (test code = 9188334557) 127 U/L 0-220 Lab Interpretation (test code = Normal 65759-5) [facility] 21 + LACTIC [id number] 13:50:06 Test Item Value Reference Range Interpretation Comments PH (test code = 7.32-7.42 6879743058) PCO2 TODD (test code = See_Comment [Auto mated 6332722605) message] The sy stem which generated this result transmitted reference range : 41 - 51 mmHg. The reference range was not used to interpret this result as normal/abnormal . PO2 TODD (test code = See_Comment HH [Autom ated 6920939547) message] The sy stem which generated this result transmitted reference range : 25 - 40 mmHg. The reference range was not used to interpret this result as normal/abnormal . HCO3 TODD (test code = See_Comment [Auto mated 0225125348) message] The sy stem which generated this result transmitted reference range : 24 - 28 mEq/L. The reference range was not used to interpret this result as normal/abnormal . AC VBE(BEAKER) (test mEq/L code = 5054861980) THB TODD (test code = 15.1 g/dL 13.5-18.0 1392496894) %O2HB TODD (test code = 90.2 % 52.0-63.0 H 3828231275) %COHB TODD (test code = 0.7 % 0.0-1.5 1961856501) %METHB TODD (test code = 0.3 % 0.4-1.5 L 7941589460) VOL%O2 TODD (test code = 19.1 % 6.0-12.0 H 4250389840) NA (test code = 141 mmol/L 135-145 0898797017) K+ (test code = 4.9 mmol/L 3.5-5.0 6714755207) AC CA IONZ (test code = 4.80 mg/dL 4.50-5.30 5826517339) GLUCOSE (test code = 120 mg/dL 70-110 H 8807965178) LACTIC ACID (test code 1.68 mmol/L 0.50-2.20 = 6509530732) Lab Interpretation Abnormal (test code = 97786-5) [facility] WITH [id number] 13:39:19 Test Item Value Reference Range Interpretation [...] RDW-SD (test code = 44.9 fL 38.5-51.6 56880-3) RDW-CV (test code = 18.4 % 12.1-15.4 H 788-0) PLT (test code = See_Comment H [Automated 777-3) message] The system which generated this result transmit yanely reference range : 150 - 328 10*3/ ?L. The reference range was not u sed to interpret th is result as normal/abnormal . MPV (test code = 9.6 fL 9.8-13.0 L 03964-8) NRBC/100 WBC (test See_Comment [Automat ed code = 1797843871) message] The system which generated this result transmit yanely reference range : 0.0 - 10.0 /100 WBCs. The reference range was not used to interpret this result as normal/abnormal . NRBC x10^3 (test code <0.01 See_Comment [Auto mated = 0949748052) message] The system which generated this result transmit yanely reference range : 10*3/?L. The reference range was not used to interpret this result as normal/abnormal . GRAN MAT (NEUT) % 74.4 % (test code = 770-8) IMM GRAN % (test code 1.40 % = 0641592315) LYMPH % (test code = 17.5 % 736-9) MONO % (test code = 5.8 % 5905-5) EOS % (test code = 0.6 % 713-8) BASO % (test code = 0.3 % 706-2) GRAN MAT x10^3(ANC) 12.17 10*3/uL 1.99-6.95 H (test code = 8419042591) IMM GRAN x10^3 (test 0.23 10*3/uL 0.00-0.06 H code = 3429787855) LYMPH x10^3 (test code 2.86 10*3/uL 1.09-3.23 = 731-0) MONO x10^3 (test code 0.94 10*3/uL 0.36-1.02 = 742-7) EOS x10^3 (test code = 0.09 10*3/uL 0.06-0.53 711-2) BASO x10^3 (test code 0.05 10*3/uL 0.01-0.09 = 704-7) Lab Interpretation Abnormal (test code = 84796-3) [facility] GLUCOSE (AUTOMATED)2021-08-22 18:24:46 Test Item Value Reference Range Interpretation Comments POCT GLU (test code = 8521375735) 157 mg/dL 70-110 H Lab Interpretation (test code = Abnormal 55471-7) [facility] GLUCOSE (AUTOMATED)2021-08-22 13:58:01 Test Item Value Reference Range Interpretation Comments POCT GLU (test code = 1345242016) 122 mg/dL 70-110 H Lab Interpretation (test code = Abnormal 06058-4) [facility] GLUCOSE (AUTOMATED)2021-08-22 01:13:31 Test Item Value Reference Range Interpretation Comments POCT GLU (test code = 7363708249) 189 mg/dL 70-110 H Lab Interpretation (test code = Abnormal 93565-1) [facility] GLUCOSE (AUTOMATED)2021-08-21 22:41:44 Test Item Value Reference Range Interpretation Comments POCT GLU (test code = 0681851130) 212 mg/dL 70-110 H Lab Interpretation (test code = Abnormal 46727-8) [facility] [id number] 21:08:29 Test Item Value Reference Range Interpretation Comments SPUTUM CULTURE 2+ Respiratory flaquito: (test code = 622-1) Commensal upper respiratory microorganisms only. Gram stain (test Occasional (Rare) code = 664-3) Epithelial cells DYAN (test code = Bacterial pathogens DYAN) associated with lower respiratory infections were not identified, which include Pseudomonas aeruginosa and Staphylococcus aureus (MRSA or MSSA). [facility]MINAL [id number] 20:51:42 Test Item Value Reference Range Interpretation Comments NT-proBNP (test code 112 pg/mL See_Comment [Autom ated = 1901293681) message] The system which generated this result transmitted reference range : <=125. The reference range was not used to interpret this result as normal/abnormal . DYAN (test code = DYAN) Biotin has been reported to cause a negative bias, interpret results relative to patient's use of biotin. Lab Interpretation Normal (test code = 76914-4) [facility] GLUCOSE (AUTOMATED)2021-08-21 18:09:39 Test Item Value Reference Range Interpretation Comments POCT GLU (test code = 6649960751) 153 mg/dL 70-110 H Lab Interpretation (test code = Abnormal 23097-8) [facility] GLUCOSE (AUTOMATED)2021-08-21 15:09:32 Test Item Value Reference Range Interpretation Comments POCT GLU (test code = 3793425671) 147 mg/dL 70-110 H Lab Interpretation (test code = Abnormal 58757-2) [facility] METABOLIC PANEL (NA, K, CL, CO2, GLUCOSE, BUN, CREATININE, CA)2021-08-21 10:25:30 Test Item Value Reference Range Interpretation Comments NA (test code = 140 mmol/L 135-145 5608817817) K (test code = 4.8 mmol/L 3.5-5.0 2164668628) CL (test code = 102 mmol/L 98-108 9435373741) CO2 TOTAL (test code = 31 mmol/L 23-31 5947934004) AGAP (test code = 2-16 5291376653) BUN (test code = 13 mg/dL 7-23 1016027424) GLUCOSE (test code = 188 mg/dL 70-110 H 5278715718) CREATININE (test code = 0.49 mg/dL 0.60-1.25 L 3969285949) CALCIUM (test code = 9.1 mg/dL 8.6-10.6 2559725481) eGFR (test code = mL/min/1.73m2 1422310858) DYAN (test code = DYAN) Association of [...] tests). Lab Interpretation Abnormal (test code = 04338-3) [facility] WITH [id number] 10:18:23 Test Item Value Reference Range Interpretation [...] RDW-SD (test code = 46.3 fL 38.5-51.6 88109-2) RDW-CV (test code = 17.5 % 12.1-15.4 H 788-0) PLT (test code = See_Comment H [Automated 777-3) message] The system which generated this result transmit yanely reference range : 150 - 328 10*3/ ?L. The reference range was not u sed to interpret th is result as normal/abnormal . MPV (test code = 9.4 fL 9.8-13.0 L 29023-2) NRBC/100 WBC (test See_Comment [Automat ed code = 2674217450) message] The system which generated this result transmit yanely reference range : 0.0 - 10.0 /100 WBCs. The reference range was not used to interpret this result as normal/abnormal . NRBC x10^3 (test code <0.01 See_Comment [Auto mated = 0784870379) message] The system which generated this result transmit yanely reference range : 10*3/?L. The reference range was not used to interpret this result as normal/abnormal . GRAN MAT (NEUT) % 86.1 % (test code = 770-8) IMM GRAN % (test code 1.00 % = 1434343018) LYMPH % (test code = 9.8 % 736-9) MONO % (test code = 3.0 % 5905-5) EOS % (test code = 0.0 % 713-8) BASO % (test code = 0.1 % 706-2) GRAN MAT x10^3(ANC) 15.95 10*3/uL 1.99-6.95 H (test code = 7768365304) IMM GRAN x10^3 (test 0.19 10*3/uL 0.00-0.06 H code = 9462576029) LYMPH x10^3 (test code 1.81 10*3/uL 1.09-3.23 = 731-0) MONO x10^3 (test code 0.56 10*3/uL 0.36-1.02 = 742-7) EOS x10^3 (test code = <0.03 0.06-0.53 L 711-2) BASO x10^3 (test code <0.03 0.01-0.09 = 704-7) SERGEI CELLS (test code 2+ See_Comment A [Auto mated = 4590-9) message] The system which generated this result transmit yanely reference range : (none). The reference range was not used to interpret this result as normal/abnormal . TOXIC CHANGES (test Present A code = 803-7) Lab Interpretation Abnormal (test code = 50011-5) [facility] GLUCOSE (AUTOMATED)2021-08-21 01:58:23 Test Item Value Reference Range Interpretation Comments POCT GLU (test code = 9896319854) 228 mg/dL 70-110 H Lab Interpretation (test code = Abnormal 80654-9) [facility] GLUCOSE (AUTOMATED)2021-08-20 22:11:58 Test Item Value Reference Range Interpretation Comments POCT GLU (test code = 9313743670) 202 mg/dL 70-110 H Lab Interpretation (test code = Abnormal 67447-5) [facility] GLUCOSE (AUTOMATED)2021-08-20 19:09:00 Test Item Value Reference Range Interpretation Comments POCT GLU (test code = 9892799233) 190 mg/dL 70-110 H Lab Interpretation (test code = Abnormal 83341-4) [facility] GLUCOSE (AUTOMATED)2021-08-20 13:40:23 Test Item Value Reference Range Interpretation Comments POCT GLU (test code = 9891809835) 139 mg/dL 70-110 H Lab Interpretation (test code = Abnormal 42827-8) [facility] GLUCOSE (AUTOMATED)2021-08-20 01:42:48 Test Item Value Reference Range Interpretation Comments POCT GLU (test code = 3465766349) 221 mg/dL 70-110 H Lab Interpretation (test code = Abnormal 47776-0) [facility] GLUCOSE (AUTOMATED)2021-08-19 22:05:17 Test Item Value Reference Range Interpretation Comments POCT GLU (test code = 5277812066) 218 mg/dL 70-110 H Lab Interpretation (test code = Abnormal 73830-2) [facility] GLUCOSE (AUTOMATED)2021-08-19 17:31:39 Test Item Value Reference Range Interpretation Comments POCT GLU (test code = 7329153447) 176 mg/dL 70-110 H Lab Interpretation (test code = Abnormal 37655-2) [facility] GLUCOSE (AUTOMATED)2021-08-19 14:23:00 Test Item Value Reference Range Interpretation Comments POCT GLU (test code = 0809454646) 219 mg/dL 70-110 H Lab Interpretation (test code = Abnormal 70610-6) [facility] WITH [id number] 10:07:54 Test Item Value Reference Range Interpretation [...] RDW-SD (test code = 44.0 fL 38.5-51.6 41688-5) RDW-CV (test code = 16.3 % 12.1-15.4 H 788-0) PLT (test code = See_Comment H [Automated 777-3) message] The system which generated this result transmit yanely reference range : 150 - 328 10*3/ ?L. The reference range was not u sed to interpret th is result as normal/abnormal . MPV (test code = 9.2 fL 9.8-13.0 L 29633-5) NRBC/100 WBC (test See_Comment [Automat ed code = 3938442173) message] The system which generated this result transmit yanely reference range : 0.0 - 10.0 /100 WBCs. The reference range was not used to interpret this result as normal/abnormal . NRBC x10^3 (test code <0.01 See_Comment [Auto mated = 8468371981) message] The system which generated this result transmit yanely reference range : 10*3/?L. The reference range was not used to interpret this result as normal/abnormal . GRAN MAT (NEUT) % 87.5 % (test code = 770-8) IMM GRAN % (test code 2.00 % = 5919628581) LYMPH % (test code = 8.9 % 736-9) MONO % (test code = 1.4 % 5905-5) EOS % (test code = 0.0 % 713-8) BASO % (test code = 0.2 % 706-2) GRAN MAT x10^3(ANC) 15.19 10*3/uL 1.99-6.95 H (test code = 6081545298) IMM GRAN x10^3 (test 0.35 10*3/uL 0.00-0.06 H code = 2845929628) LYMPH x10^3 (test code 1.54 10*3/uL 1.09-3.23 [...] . Lab Interpretation Abnormal (test code = 74244-8) [facility] METABOLIC PANEL (NA, K, CL, CO2, GLUCOSE, BUN, CREATININE, CA)2021-08-19 10:01:04 Test Item Value Reference Range Interpretation Comments NA (test code = 137 mmol/L 135-145 1254167178) K (test code = 4.3 mmol/L 3.5-5.0 2533640617) CL (test code = 101 mmol/L 98-108 9912335726) CO2 TOTAL (test code = 31 mmol/L 23-31 7404560694) AGAP (test code = 2-16 2639492188) BUN (test code = 9 mg/dL 7-23 4444496756) GLUCOSE (test code = 202 mg/dL 70-110 H 5899171729) CREATININE (test code = 0.46 mg/dL 0.60-1.25 L 6329591190) CALCIUM (test code = 8.7 mg/dL 8.6-10.6 2360034878) eGFR (test code = mL/min/1.73m2 2319430544) DYAN (test code = DYAN) Association of [...] tests). Lab Interpretation Abnormal (test code = 85297-1) [facility] GLUCOSE (AUTOMATED)2021-08-19 04:12:32 Test Item Value Reference Range Interpretation Comments POCT GLU (test code = 2942743067) 201 mg/dL 70-110 H Lab Interpretation (test code = Abnormal 96254-2) [facility] GLUCOSE (AUTOMATED)2021-08-19 01:13:04 Test Item Value Reference Range Interpretation Comments POCT GLU (test code = 5926063446) 319 mg/dL 70-110 H Lab Interpretation (test code = Abnormal 80665-3) [facility] GLUCOSE (AUTOMATED)2021-08-18 22:24:04 Test Item Value Reference Range Interpretation Comments POCT GLU (test code = 1374781280) 241 mg/dL 70-110 H Lab Interpretation (test code = Abnormal 42403-0) [facility] GLUCOSE (AUTOMATED)2021-08-18 13:38:10 Test Item Value Reference Range Interpretation Comments POCT GLU (test code = 1864035073) 106 mg/dL 70-110 Lab Interpretation (test code = Normal 66909-1) [facility] CULTURE [id number] 12:01:11 Test Item Value Reference Range Interpretation Comments Blood Culture-Aerobic No organisms No growth Previo us (test code = 86204-4) isolated prelim inary verified result was Culture [...] Culture-Anaerobic isolated preliminar y (test code = 25151-6) verifi ed result was Culture In Progress [...] CDT Lab Interpretation Normal (test code = 98853-9) [facility] CULTURE [id number] 12:01:11 Test Item Value Reference Range Interpretation Comments Blood Culture-Aerobic No organisms No growth Previo us (test code = 78509-8) isolated prelim inary verified result was Culture [...] Culture-Anaerobic isolated preliminar y (test code = 50735-4) verifi ed result was Culture In Progress [...] CDT Lab Interpretation Normal (test code = 76842-8) [facility] GLUCOSE (AUTOMATED)2021-08-17 22:25:31 Test Item Value Reference Range Interpretation Comments POCT GLU (test code = 9184995131) 133 mg/dL 70-110 H Lab Interpretation (test code = Abnormal 68997-0) [facility] GLUCOSE (AUTOMATED)2021-08-17 16:42:32 Test Item Value Reference Range Interpretation Comments POCT GLU (test code = 8257347074) 134 mg/dL 70-110 H Lab Interpretation (test code = Abnormal 25680-5) [facility] GLUCOSE (AUTOMATED)2021-08-17 13:15:19 Test Item Value Reference Range Interpretation Comments POCT GLU (test code = 4557741665) 113 mg/dL 70-110 H Lab Interpretation (test code = Abnormal 30074-4) [facility] WITH [id number] 11:10:34 Test Item Value Reference Range Interpretation Comments WBC (test code = See_Comment H [Automated 6690-2) message] The sy stem which generated this result transmitted reference range : 4.20 - 10.70 10*3/?L. The reference range was not used to interpret this result as normal/abnormal . RBC (test code = See_Comment [Automated 139-8) message] The sy stem which generated this [...] RDW-SD (test code = 44.9 fL 38.5-51.6 88119-0) RDW-CV (test code = 16.4 % 12.1-15.4 H 788-0) PLT (test code = See_Comment H [Automated 777-3) message] The sy stem which generated this result transmitted reference range : 150 - 328 10*3/ ?L. The reference r matthieu was not used to interpret this result as normal/abnormal . MPV (test code = 9.0 fL 9.8-13.0 L 15403-7) NRBC/100 WBC (test See_Comment [Automat ed code = 2363142436) message] The system which generated this result transmitted reference range : 0.0 - 10.0 /100 WBCs. The refer ence range was not u sed to interpret th is result as normal/abnormal . NRBC x10^3 (test code <0.01 See_Comment [Auto mated = 2000775647) message] The s ystem which generated this result transmitted reference range : 10*3/?L. The reference range was not used to interpret this result as normal/abnormal . GRAN MAT (NEUT) % 63.0 % (test code = 770-8) IMM GRAN % (test code 3.10 % = 6380369238) LYMPH % (test code = 20.3 % 736-9) MONO % (test code = 9.9 % 5905-5) EOS % (test code = 3.2 % 713-8) BASO % (test code = 0.5 % 706-2) GRAN MAT x10^3(ANC) 8.24 10*3/uL 1.99-6.95 H (test code = 1537575202) IMM GRAN x10^3 (test 0.40 10*3/uL 0.00-0.06 H code = 0629267606) LYMPH x10^3 (test code 2.66 10*3/uL 1.09-3.23 = 731-0) MONO x10^3 (test code 1.30 10*3/uL 0.36-1.02 H = 742-7) EOS x10^3 (test code = 0.42 10*3/uL 0.06-0.53 711-2) BASO x10^3 (test code 0.07 10*3/uL 0.01-0.09 = 704-7) Lab Interpretation Abnormal (test code = 43190-5) [facility] METABOLIC PANEL (NA, K, CL, CO2, GLUCOSE, BUN, CREATININE, CA)2021-08-17 10:51:30 Test Item Value Reference Range Interpretation Comments NA (test code = 138 mmol/L 135-145 3729806390) K (test code = 3.5 mmol/L 3.5-5.0 3821931596) CL (test code = 104 mmol/L 98-108 8219755208) CO2 TOTAL (test code = 30 mmol/L 23-31 5255165601) AGAP (test code = 2-16 2572837358) BUN (test code = 6 mg/dL 7-23 L 1975651523) GLUCOSE (test code = 106 mg/dL 70-110 9143576738) CREATININE (test code = 0.57 mg/dL 0.60-1.25 L 2640665781) CALCIUM (test code = 8.0 mg/dL 8.6-10.6 L 1801820087) eGFR (test code = mL/min/1.73m2 4070545457) DYAN (test code = DYAN) Association of [...] tests). Lab Interpretation Abnormal (test code = 83124-1) [facility] GLUCOSE (AUTOMATED)2021-08-17 02:12:29 Test Item Value Reference Range Interpretation Comments POCT GLU (test code = 8138170874) 128 mg/dL 70-110 H Lab Interpretation (test code = Abnormal 44931-1) [facility] GLUCOSE (AUTOMATED)2021-08-16 21:48:26 Test Item Value Reference Range Interpretation Comments POCT GLU (test code = 8719249958) 98 mg/dL 70-110 Lab Interpretation (test code = Normal 66055-0) [facility] [id number] 19:19:08 Test Item Value Reference Range Interpretation Comments SPUTUM CULTURE 1+ Respiratory flaquito: (test code = 622-1) Commensal upper respiratory microorganisms only. Gram stain (test Occasional (Rare) code = 664-3) Epithelial cells DYAN (test code = Bacterial pathogens DYAN) associated with lower respiratory infections were not identified, which include Pseudomonas aeruginosa and Staphylococcus aureus (MRSA or MSSA). [facility] GLUCOSE (AUTOMATED)2021-08-16 16:54:21 Test Item Value Reference Range Interpretation Comments POCT GLU (test code = 7309789056) 178 mg/dL 70-110 H Lab Interpretation (test code = Abnormal 00047-5) [facility]ALCITONIN2022-05-31 15:55:34 Test Item Value Reference Range Interpretation Comments Procalcitonin (test 0.12 ng/mL <0.08 H code = 1650467843) DYAN (test code = DYAN) INTERPRETATION OF [...] lung abscess/empyema. For further information please refer to:[email or web address] Lab Interpretation Abnormal (test code = 37612-0) [facility] GLUCOSE (AUTOMATED)2021-08-16 12:48:02 Test Item Value Reference Range Interpretation Comments POCT GLU (test code = 8225792114) 108 mg/dL 70-110 Lab Interpretation (test code = Normal 87672-9) [facility] GLUCOSE (AUTOMATED)2021-08-16 01:28:57 Test Item Value Reference Range Interpretation Comments POCT GLU (test code = 7982404393) 129 mg/dL 70-110 H Lab Interpretation (test code = Abnormal 34585-9) [facility] GLUCOSE (AUTOMATED)2021-08-15 21:58:26 Test Item Value Reference Range Interpretation Comments POCT GLU (test code = 7452079323) 116 mg/dL 70-110 H Lab Interpretation (test code = Abnormal 43573-9) [facility] GLUCOSE (AUTOMATED)2021-08-15 16:31:54 Test Item Value Reference Range Interpretation Comments POCT GLU (test code = 9658497414) 145 mg/dL 70-110 H Lab Interpretation (test code = Abnormal 94663-3) [facility] GLUCOSE (AUTOMATED)2021-08-15 12:37:05 Test Item Value Reference Range Interpretation Comments POCT GLU (test code = 4463756880) 123 mg/dL 70-110 H Lab Interpretation (test code = Abnormal 63338-5) [facility] METABOLIC PANEL (NA, K, CL, CO2, GLUCOSE, BUN, CREATININE, CA)2021-08-15 11:03:43 Test Item Value Reference Range Interpretation Comments NA (test code = 139 mmol/L 135-145 2750969020) K (test code = 3.9 mmol/L 3.5-5.0 9196167599) CL (test code = 99 mmol/L 98-108 5925739731) CO2 TOTAL (test code = 34 mmol/L 23-31 H 6133828214) AGAP (test code = 2-16 7191544346) BUN (test code = 8 mg/dL 7-23 0551669776) GLUCOSE (test code = 99 mg/dL 70-110 9266752658) CREATININE (test code = 0.67 mg/dL 0.60-1.25 1390641934) CALCIUM (test code = 8.3 mg/dL 8.6-10.6 L 1361090743) eGFR (test code = mL/min/1.73m2 3591460979) DYAN (test code = DYAN) Association of [...] tests). Lab Interpretation Abnormal (test code = 25692-5) [facility]IUM2022-[facility]-30 11:03:43 Test Item Value Reference Range Interpretation Comments MAGNESIUM (test code = 2656250352) 2.0 mg/dL 1.7-2.4 Lab Interpretation (test code = Normal 73410-5) [facility] HospitalCB WITHOUT [id number] 10:45:01 Test Item Value Reference Range Interpretation Comments WBC (test code = 6690-2) See_Comment H [A utomated message] The system [employer] generated this result transmit yanely reference range : 4.20 - 10.70 10*3/?L. The reference range was not used to interpret this result as normal/abnormal . RBC (test code = 789-8) See_Comment [Au tomated message] The system [employer] generated this result transmit yanely reference range [...] 777-3) See_Comment [Au tomated message] The system [facility] generated this result transmit yanely reference range : 150 - 328 10*3/?L. The reference range was not used to interpret this result as normal/abnormal . MPV (test code = 9.3 fL 9.8-13.0 L 18561-9) RDW-CV (test code = 16.7 % 12.1-15.4 H 788-0) RDW-SD (test code = 45.9 fL 38.5-51.6 16369-9) NRBC x10^3 (test code = <0.01 See_Comment [Au tomated message] 8572697033) The system [employer] generated this result transmit yanely reference range : 10*3/?L. The reference range was not used to interpret this result as normal/abnormal . NRBC/100 WBC (test code See_Comment [Au tomated message] = 3468355949) The system [facility] generated this result transmit yanely reference range : 0.0 - 10.0 /100 WBC s. The reference r matthieu was not used to interpret this result as normal/abnormal . IPF % (test code = 6671233283) Lab Interpretation (test Abnormal code = 25704-7) [facility] GLUCOSE (AUTOMATED)2021-08-15 02:13:04 Test Item Value Reference Range Interpretation Comments POCT GLU (test code = 1929876864) 108 mg/dL 70-110 Lab Interpretation (test code = Normal 74054-9) [facility] GLUCOSE (AUTOMATED)2021-08-14 21:29:00 Test Item Value Reference Range Interpretation Comments POCT GLU (test code = 8911704485) 103 mg/dL 70-110 Lab Interpretation (test code = Normal 12561-1) [facility] with [id number] 10:02:33 Test Item Value Reference Range Interpretation [...] RDW-SD (test code = 46.1 fL 38.5-51.6 04605-2) RDW-CV (test code = 16.7 % 12.1-15.4 H 788-0) PLT (test code = See_Comment [Automated 777-3) message] The system which generated this result transmit yanely reference range : 150 - 328 10*3/ ?L. The reference range was not u sed to interpret th is result as normal/abnormal . MPV (test code = 9.4 fL 9.8-13.0 L 62836-8) NRBC/100 WBC (test See_Comment [Automat ed code = 1795405778) message] The system which generated this result transmit yanely reference range : 0.0 - 10.0 /100 WBCs. The reference range was not used to interpret this result as normal/abnormal . NRBC x10^3 (test code <0.01 See_Comment [Auto mated = 3847005639) message] The system which generated this result transmit yanely reference range : 10*3/?L. The reference range was not used to interpret this result as normal/abnormal . GRAN MAT (NEUT) % 70.8 % (test code = 770-8) IMM GRAN % (test code 0.90 % = 2904376965) LYMPH % (test code = 18.2 % 736-9) MONO % (test code = 7.8 % 5905-5) EOS % (test code = 1.9 % 713-8) BASO % (test code = 0.4 % 706-2) GRAN MAT x10^3(ANC) 11.32 10*3/uL 1.99-6.95 H (test code = 8228723560) IMM GRAN x10^3 (test 0.15 10*3/uL 0.00-0.06 H code = 9222390205) LYMPH x10^3 (test code 2.91 10*3/uL 1.09-3.23 = 731-0) MONO x10^3 (test code 1.24 10*3/uL 0.36-1.02 H = 742-7) EOS x10^3 (test code = 0.30 10*3/uL 0.06-0.53 711-2) BASO x10^3 (test code 0.07 10*3/uL 0.01-0.09 = 704-7) Lab Interpretation Abnormal (test code = 83252-9) [facility] GLUCOSE (AUTOMATED)2021-08-14 05:21:12 Test Item Value Reference Range Interpretation Comments POCT GLU (test code = 3145932592) 104 mg/dL 70-110 Lab Interpretation (test code = Normal 82887-5) [facility] GLUCOSE (AUTOMATED)2021-08-14 02:33:14 Test Item Value Reference Range Interpretation Comments POCT GLU (test code = 1138025970) 105 mg/dL 70-110 Lab Interpretation (test code = Normal 41899-5) [facility] HospitalGlycosylated Hemoglobin (A1C)2021-08-13 20:51:09 Test Item Value Reference Range Interpretation Comments HGB A1C (test code = 6.6 % 4.0-5.7 H 4548-4) DYAN (test code = DYAN) Reference RangesNormal: <5.7%Prediabetes: 5.7 - 6.4%Diabetes: > 6.5% Lab Interpretation (test Abnormal code = 59000-0) [facility] GLUCOSE (AUTOMATED)2021-08-13 20:24:32 Test Item Value Reference Range Interpretation Comments POCT GLU (test code = 1523971971) 101 mg/dL 70-110 Lab Interpretation (test code = Normal 18869-2) [facility] GLUCOSE (AUTOMATED)2021-08-13 16:37:49 Test Item Value Reference Range Interpretation Comments POCT GLU (test code = 7905097032) 158 mg/dL 70-110 H Lab Interpretation (test code = Abnormal 25373-4) [facility] HospitalCOMP. METABOLIC PANEL (52047)2021-08-13 11:45:52 Test Item Value Reference Range Interpretation Comments NA (test code = 139 mmol/L 135-145 4798376755) K (test code = 3.9 mmol/L 3.5-5.0 3920791531) CL (test code = 101 mmol/L 98-108 2734024705) CO2 TOTAL (test code = 28 mmol/L 23-31 1296775454) AGAP (test code = 2-16 1866677686) BUN (test code = 9 mg/dL 7-23 3648466336) GLUCOSE (test code = 166 mg/dL 70-110 H 4086665489) CREATININE (test code = 0.55 mg/dL 0.60-1.25 L 1707805505) TOTAL BILI (test code = 0.5 mg/dL 0.1-1.0 1555327027) CALCIUM (test code = 8.5 mg/dL 8.6-10.6 L 5408736363) T PROTEIN (test code = 7.1 g/dL 6.3-8.2 6517203262) ALBUMIN (test code = 3.7 g/dL 3.5-5.0 8567174494) ALK PHOS (test code = 122 U/L 34-122 0631241694) ALTv (test code = 16 U/L 5-50 1742-6) AST(SGOT) (test code = 22 U/L 13-40 3301527703) eGFR (test code = mL/min/1.73m2 4695794651) DYAN (test code = DYAN) Association of [...] tests). Lab Interpretation Abnormal (test code = 90797-2) [facility] WITH [id number] 11:37:49 Test Item Value Reference Range Interpretation [...] RDW-SD (test code = 45.1 fL 38.5-51.6 35527-7) RDW-CV (test code = 16.5 % 12.1-15.4 H 788-0) PLT (test code = See_Comment H [Automated 777-3) message] The system which generated this result transmit yanely reference range : 150 - 328 10*3/ ?L. The reference range was not u sed to interpret th is result as normal/abnormal . MPV (test code = 9.5 fL 9.8-13.0 L 77111-5) NRBC/100 WBC (test See_Comment [Automat ed code = 1013516496) message] The system which generated this result transmit yanely reference range : 0.0 - 10.0 /100 WBCs. The reference range was not used to interpret this result as normal/abnormal . NRBC x10^3 (test code <0.01 See_Comment [Auto mated = 0357133477) message] The system which generated this result transmit yanely reference range : 10*3/?L. The reference range was not used to interpret this result as normal/abnormal . GRAN MAT (NEUT) % 74.4 % (test code = 770-8) IMM GRAN % (test code 1.00 % = 3240189275) LYMPH % (test code = 15.4 % 736-9) MONO % (test code = 7.9 % 5905-5) EOS % (test code = 0.9 % 713-8) BASO % (test code = 0.4 % 706-2) GRAN MAT x10^3(ANC) 11.71 10*3/uL 1.99-6.95 H (test code = 7180653074) IMM GRAN x10^3 (test 0.15 10*3/uL 0.00-0.06 H code = 0923233708) LYMPH x10^3 (test code 2.43 10*3/uL 1.09-3.23 = 731-0) MONO x10^3 (test code 1.25 10*3/uL 0.36-1.02 H = 742-7) EOS x10^3 (test code = 0.14 10*3/uL 0.06-0.53 711-2) BASO x10^3 (test code 0.06 10*3/uL 0.01-0.09 = 704-7) Lab Interpretation Abnormal (test code = 02757-9) [facility] HospitalACTIVATED PARTIAL THRMPLAS [id number] 17:15:20 Test Item Value Reference Range Interpretation Comments APTT Patient (test See_Comment [Automat ed code = 3173-2) message] The system which generated this result transmitted reference range : 23 - 38 Seconds . The reference range was not used to interpr et this result as normal/abnormal . DYAN (test code = DYAN) The [facility] patient population mean normal value for aPTT is 30 seconds. Lab Interpretation Normal (test code = 28796-6) [facility] HospitalPROTHROMBIN TIME / [id number] 17:13:18 Test Item Value Reference Range Interpretation [...] tions. Lab Interpretation (test Normal code = 41904-2) [facility] HospitalTROPONIN [id number] 16:59:37 Test Item Value Reference Interpretation Comments Range TROPONIN I (test 0.003 ng/mL See_Comment [Automated code = 0851851148) message] The system which generated this result [...] biotin. Lab Interpretation Normal (test code = 74490-2) [facility] HospitalN-TERMINAL [id number] 16:56:14 Test Item Value Reference Range Interpretation Comments NT-proBNP (test code 37 pg/mL See_Comment [Autom ated = 6153939083) message] The system which generated this result transmitted reference range : <=125. The reference range was not used to interpret this result as normal/abnormal . DYAN (test code = DYAN) Biotin has been reported to cause a negative bias, interpret results relative to patient's use of biotin. Lab Interpretation Normal (test code = 20041-4) [facility] HospitalETHANOL2022-03-23 16:51:35 Test Item Value Reference Range Interpretation Comments ALCOHOL (test code = <10 mg/dL 3726466701) DYAN (test code = DYAN) <10 Ohwotglq87-079 Toxic>100 Depression of OPERATIONS ASSISTANT>400 Fatalities Reported [facility] HospitalCOMP. METABOLIC PANEL (32525)2021-06-08 16:47:52 Test Item Value Reference Range Interpretation Comments NA (test code = 143 mmol/L 135-145 5189770775) K (test code = 4.6 mmol/L 3.5-5.0 3525531991) CL (test code = 103 mmol/L 98-108 4023167067) CO2 TOTAL (test code = 32 mmol/L 23-31 H 4620228202) AGAP (test code = 2-16 7084926992) BUN (test code = 10 mg/dL 7-23 8243659273) GLUCOSE (test code = 134 mg/dL 70-110 H 3033629342) CREATININE (test code = 0.62 mg/dL 0.60-1.25 4905881786) TOTAL BILI (test code = 0.5 mg/dL 0.1-1.5 0730508511) CALCIUM (test code = 8.4 mg/dL 8.6-10.6 L 5333935932) T PROTEIN (test code = 7.4 g/dL 6.3-8.2 8350656034) ALBUMIN (test code = 4.1 g/dL 3.5-5.0 7502640787) ALK PHOS (test code = 120 U/L 34-122 4904767059) ALTv (test code = 30 U/L 5-50 2-6) AST(SGOT) (test code = 31 U/L 13-40 8312639895) eGFR (test code = mL/min/1.73m2 1443705580) DYAN (test code = DYAN) Association of [...] tests). Lab Interpretation Abnormal (test code = 72288-8) [facility] WITH [id number] 16:37:14 Test Item Value Reference Range Interpretation [...] RDW-SD (test code = 49.5 fL 38.5-51.6 04725-0) RDW-CV (test code = 17.2 % 12.1-15.4 H 788-0) PLT (test code = See_Comment H [Automated 777-3) message] The sy stem which generated this result transmitted reference range : 150 - 328 10*3/ ?L. The reference r matthieu was not used to interpret this result as normal/abnormal . MPV (test code = 10.5 fL 9.8-13.0 62075-3) NRBC/100 WBC (test See_Comment [Automat ed code = 6600031540) message] The system which generated this result transmitted reference range : 0.0 - 10.0 /100 WBCs. The refer ence range was not u sed to interpret th is result as normal/abnormal . NRBC x10^3 (test code <0.01 See_Comment [Auto mated = 6770773694) message] The s ystem which generated this result transmitted reference range : 10*3/?L. The reference range was not used to interpret this result as normal/abnormal . GRAN MAT (NEUT) % 59.6 % (test code = 770-8) IMM GRAN % (test code 2.00 % = 2896827557) LYMPH % (test code = 24.1 % 736-9) MONO % (test code = 10.1 % 5905-5) EOS % (test code = 3.7 % 713-8) BASO % (test code = 0.5 % 706-2) GRAN MAT x10^3(ANC) 8.00 10*3/uL 1.99-6.95 H (test code = 5583468353) IMM GRAN x10^3 (test 0.27 10*3/uL 0.00-0.06 H code = 1384805991) LYMPH x10^3 (test code 3.23 10*3/uL 1.09-3.23 = 731-0) MONO x10^3 (test code 1.35 10*3/uL 0.36-1.02 H = 742-7) EOS x10^3 (test code = 0.50 10*3/uL 0.06-0.53 711-2) BASO x10^3 (test code 0.07 10*3/uL 0.01-0.09 = 704-7) Lab Interpretation Abnormal (test code = 04364-6) [facility] HospitalUR[facility] AND [id number] 20:30:00 Test Item Value Reference Range Interpretation Comments UA Color (test code = Yellow *NA*(09/16/19 UA Color) 3:30 PM) [facility] AND [id number] 20:30:00 Test Item Value Reference Range Interpretation Comments UA Turbidity (test code Slight Cloudy = UA Turbidity) (09/16/19 3:30 PM) [facility] AND [id number] 20:30:00 Test Item Value Reference Range Interpretation Comments UA Spec Grav (test code = UA Spec 1.025 1 Grav) [facility] [id number] 20:30:00 Test Item Value Reference Range Interpretation Comments UA pH (test code = UA pH) 5.5 1 5.0-8.0 [facility] [id number] 20:30:00 Test Item Value Reference Range Interpretation Comments UA Protein (test code = UA Negative mg/dL Protein) [facility] [id number] 20:30:00 Test Item Value Reference Range Interpretation Comments UA Glucose (test code = UA Negative mg/dL Glucose) [facility] [id number] 20:30:00 Test Item Value Reference Range Interpretation Comments UA Ketones (test code = UA Negative mg/dL Ketones) [facility] [id number] 20:30:00 Test Item Value Reference Range Interpretation Comments UA Bili (test code = Negative *NA*(09/16/19 UA Bili) 3:30 PM) [facility] AND [id number] 20:30:00 Test Item Value Reference Range Interpretation Comments UA Blood (test code = Negative (09/16/19 3:30 UA Blood) PM) [facility] AND [id number] 20:30:00 Test Item Value Reference Range Interpretation Comments UA Urobilinogen (test code = UA 0.2 0.1-1.0 Urobilinogen) [facility] [id number] 20:30:00 Test Item Value Reference Range Interpretation Comments UA Nitrite (test code Negative (09/16/19 3:30 = UA Nitrite) PM) [facility] AND [id number] 20:30:00 Test Item Value Reference Range Interpretation Comments UA Leuk Est (test Negative (09/16/19 3:30 code = UA Leuk Est) PM) [facility] [id number] 20:30:00 Test Item Value Reference Range Interpretation Comments UA Sq Epi (test code = UA Sq Epi) Rare /LPF [facility] AND [id number] 20:30:00 Test Item Value Reference Range Interpretation Comments UA WBC (test code = UA WBC) 0-2 /HPF [facility] [id number] 20:30:00 Test Item Value Reference Range Interpretation Comments UA RBC (test code = 0-2 /HPF See_Comment [Automa yanely message] The UA RBC) system which ge nerated this result tra nsmitted reference range : <=2. The reference range was not used to interpr et this result as brielle l/abnormal. [facility] [id number] 20:30:00 Test Item Value Reference Range Interpretation Comments UA Bacteria (test code = UA Bacteria) rare [facility] AND [id number] 20:30:00 Test Item Value Reference Range Interpretation Comments UA Mucus (test code = UA Mucus) Few /LPF [facility] [id number] 17:00:00 Test Item Value Reference Range Interpretation Comments Vitamin D, 25-OH, Total (test code = 19.2 30.0-100.0 Vitamin D, 25-OH, Total) [place] [id number] 17:00:00 Test Item Value Reference Range Interpretation Comments LH (test code = LH) 3.84 [id number] 17:00:00 Test Item Value Reference Range Interpretation Comments FSH (test code = FSH) 7.3 [facility] HospitalDdsqpcyPDIUKAOAEV2095-91-32 17:00:00 Test Item Value Reference Range Interpretation Comments IGF I (test code = IGF I) 128 67-205 [facility] ONLY - INFLUENZA A & B DIRECT ANTIGEN 2019-04-08 20:56:00 Test Item Value Reference Range Interpretation Comments Influenza A (test code = 29297-1) Negative Negative Influenza B (test code = 13828-0) Negative Negative Lab Interpretation (test code = Normal 05126-9) [facility] HospitalCT Head W/O [id number] 20:43:43 Impression: Grossly unchanged enlargement of the ventricles. Left frontal approachventricular shunt catheter unchanged in position. 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, h/o CASER UP shunt Comparison: 02/03/2019 Technique: Routine unenhanced brain [...] PM CSTCT HEAD WO CONTRASTHISTORY: MONTANEZ, h/o CASER UP shunt Comparison: 02/03/2019 Technique: Routine unenhanced brain [...] Left frontal approachventricular shunt catheter unchanged in position.[facility] HospitalCHEM [id number] 11:31:00 Test Item Value Reference Range Interpretation Comments Magnesium Lvl (test code = Magnesium 2.2 1.8-2.4 Lvl) [facility] [id number] 11:31:00 Test Item Value Reference Range Interpretation Comments Phosphorus (test code = Phosphorus) 3.7 2.5-4.5 [facility] [id number] 11:31:00 Test Item Value Reference Range Interpretation Comments ALT (test code = ALT) 62 See_Comment [Auto mated message] The system which ge nerated this result transmit yanely reference range : <=65. The reference range was not used to interpr et this result as brielle l/abnormal. [facility] [id number] 11:31:00 Test Item Value Reference Range Interpretation Comments Albumin Lvl (test code = Albumin Lvl) 3.5 3.5-5.0 [facility] [id number] 11:31:00 Test Item Value Reference Range Interpretation Comments Alk Phos (test code = Alk Phos) 81 39-136 [facility] [id number] 11:31:00 Test Item Value Reference Range Interpretation Comments Glucose Lvl (test code = Glucose Lvl) 102 70-99 [facility]2019-12-04 11:31:00 Test Item Value Reference Range Interpretation Comments BUN (test code = BUN) 11 7-22 [facility]2019-12-04 11:31:00 Test Item Value Reference Range Interpretation Comments Creatinine Lvl (test code = Creatinine 0.65 0.50-1.40 Lvl) [facility]2019-12-04 11:31:00 Test Item Value Reference Range Interpretation Comments Sodium Lvl (test code = Sodium Lvl) 138 135-145 [facility]2019-12-04 11:31:00 Test Item Value Reference Range Interpretation Comments Potassium Lvl (test code = Potassium 4.0 3.5-5.1 Lvl) [facility]2019-12-04 11:31:00 Test Item Value Reference Range Interpretation Comments Chloride Lvl (test code = Chloride Lvl) 101 95-109 [facility]2019-12-04 11:31:00 Test Item Value Reference Range Interpretation Comments CO2 (test code = CO2) 30 24-32 [facility]2019-12-04 11:31:00 Test Item Value Reference Range Interpretation Comments Calcium Lvl (test code = Calcium Lvl) 9.6 8.5-10.5 [facility]2019-12-04 11:31:00 Test Item Value Reference Range Interpretation Comments Bili Total (test code = Bili Total) 0.5 0.2-1.3 [facility]2019-12-04 11:31:00 Test Item Value Reference Range Interpretation Comments Total Protein (test code = Total 8.3 6.4-8.4 Protein) [facility]2019-12-04 11:31:00 Test Item Value Reference Range Interpretation Comments AST (test code = AST) 54 See_Comment [Auto mated message] The system which ge nerated this result transmit yanely reference range : <=37. The reference range was not used to interpr et this result as brielle l/abnormal. [facility]2019-12-04 11:31:00 Test Item Value Reference Range Interpretation Comments eGFR (test code = eGFR) 117 [facility]2019-12-04 11:31:00 Test Item Value Reference Range Interpretation Comments AGAP (test code = AGAP) 11.0 10.0-20.0 [facility]2019-12-04 11:31:00 Test Item Value Reference Range Interpretation Comments B/C Ratio (test code = B/C Ratio) 17 1 6-25 [facility]2019-12-04 11:31:00 Test Item Value Reference Range Interpretation Comments Globulin (test code = Globulin) 4.8 2.7-4.2 [facility]2019-12-04 11:31:00 Test Item Value Reference Range Interpretation Comments A/G Ratio (test code = A/G Ratio) 0.7 1 0.7-1.6 [facility] Hospit[id number] 11:31:00 Test Item Value Reference Range Interpretation Comments Plt Morph (test code = Normal (02/19/19 5:31 Plt Morph) AM) [facility] HospitalKogslqzYIDVSFOZBU5547-90-88 11:31:00 Test Item Value Reference Range Interpretation Comments Segs (test code = Segs) 60.5 45.0-75.0 [facility] HospitalJgxyhflFPMGMJWGIL0726-51-96 11:31:00 Test Item Value Reference Range Interpretation Comments Lymphocytes (test code = Lymphocytes) 28.8 20.0-40.0 [facility] HospitalHlyhbotPOIAAHSSBM2521-14-67 11:31:00 Test Item Value Reference Range Interpretation Comments Monocytes (test code = Monocytes) 8.5 2.0-12.0 [facility] HospitalDoajfecJJGSRMAGRX8972-78-01 11:31:00 Test Item Value Reference Range Interpretation Comments Eosinophils (test code = 1.5 See_Comment [A utomated message] The Eosinophils) system which ge nerated this result tra nsmitted reference range : <=4.0. The reference r matthieu was not used to int erpret this result as normal/abnormal . [facility] HospitalKfucfvaVJCDKPXPNK3722-30-20 11:31:00 Test Item Value Reference Range Interpretation Comments Basophils (test code = 0.7 See_Comment [Aut omated message] The Basophils) system which ge nerated this result tra nsmitted reference range : <=1.0. The reference r matthieu was not used to int erpret this result as normal/abnormal . [facility] HospitalAovjarwKXXIYISBHD5029-41-68 11:31:00 Test Item Value Reference Range Interpretation Comments Neutrophils # (test code = Neutrophils 6.2 1.5-8.1 #) [facility] HospitalQeixcteOWGKYFKZYT2788-96-90 11:31:00 Test Item Value Reference Range Interpretation Comments Lymphocytes # (test code = Lymphocytes 3.0 1.0-5.5 #) [facility] HospitalJdfpdqvULXUDXFIRG6846-74-60 11:31:00 Test Item Value Reference Range Interpretation Comments Monocytes # (test code 0.9 See_Comment [Aut omated message] The = Monocytes #) system which generated this result tra nsmitted reference range : <=0.8. The reference r matthieu was not used to int erpret this result as normal/abnormal . [facility] HospitalOvbpvjaGKKOMNZCWN1650-50-70 11:31:00 Test Item Value Reference Range Interpretation Comments Eosinophils # (test code 0.2 See_Comment [A utomated message] The = Eosinophils #) system whic h generated this result tra nsmitted reference range : <=0.5. The reference r matthieu was not used to int erpret this result as normal/abnormal . [facility] HospitalBptomfrDWGTJELOXC6946-02-89 11:31:00 Test Item Value Reference Range Interpretation Comments Basophils # (test code 0.1 See_Comment [Aut omated message] The = Basophils #) system which generated this result tra nsmitted reference range : <=0.2. The reference r matthieu was not used to int erpret this result as normal/abnormal . [facility] HospitalJdettdoPMWXOJEJBU3646-46-29 11:31:00 Test Item Value Reference Range Interpretation Comments Microcyte (test code = 1+ *ABN*(02/19/19 Microcyte) 5:31 AM) [facility] HospitalFagbirkPBZRAUJACZ7544-75-28 11:31:00 Test Item Value Reference Range Interpretation Comments WBC (test code = WBC) 10.7 3.7-10.4 [facility] HospitalJqpbtlyLUFRTSIDYW6173-75-45 11:31:00 Test Item Value Reference Range Interpretation Comments RBC (test code = RBC) 5.16 4.70-6.10 [facility] HospitalDdugwwnKRBJIPUWWI6172-95-04 11:31:00 Test Item Value Reference Range Interpretation Comments Hgb (test code = Hgb) 12.9 14.0-18.0 [facility] HospitalZsknrynMXKOSHYXKG5706-89-63 11:31:00 Test Item Value Reference Range Interpretation Comments Hct (test code = Hct) 39.3 42.0-54.0 [facility] HospitalLwmuyjfUYUOJJTTXW0830-60-01 11:31:00 Test Item Value Reference Range Interpretation Comments MCV (test code = MCV) 76.2 80.0-94.0 [facility] HospitalMpvinleIRKCSRKOYE7197-56-81 11:31:00 Test Item Value Reference Range Interpretation Comments MCH (test code = MCH) 25.0 pg 27.0-31.0 [facility] HospitalUxyziteOWIKPIMKAN1603-80-36 11:31:00 Test Item Value Reference Range Interpretation Comments MCHC (test code = MCHC) 32.8 32.0-36.0 [facility] HospitalHtkhujlIMQRGTPQKF1507-85-97 11:31:00 Test Item Value Reference Range Interpretation Comments RDW (test code = RDW) 18.1 11.5-14.5 [facility] HospitalAbnfozlPTFTMNSSOS2852-39-70 11:31:00 Test Item Value Reference Range Interpretation Comments Platelet (test code = Platelet) 441 133-450 [facility] HospitalEszdxbeEYBSGEENAS5471-40-32 11:31:00 Test Item Value Reference Range Interpretation Comments MPV (test code = MPV) 8.7 7.4-10.4 [facility] AND [id number] 11:31:00 Test Item Value Reference Range Interpretation Comments UA Color (test code = Yellow *NA*(02/19/19 UA Color) 5:31 AM) [facility] AND [id number] 11:31:00 Test Item Value Reference Range Interpretation Comments UA Turbidity (test code = Clear (02/19/19 5:31 UA Turbidity) AM) [facility] AND [id number] 11:31:00 Test Item Value Reference Range Interpretation Comments UA Spec Grav (test code = UA Spec 1.010 1 Grav) [facility] AND [id number] 11:31:00 Test Item Value Reference Range Interpretation Comments UA pH (test code = UA pH) 6.0 1 5.0-8.0 [facility] AND [id number] 11:31:00 Test Item Value Reference Range Interpretation Comments UA Protein (test code = UA Negative mg/dL Protein) [facility] AND [id number] 11:31:00 Test Item Value Reference Range Interpretation Comments UA Glucose (test code = UA Negative mg/dL Glucose) [facility] AND [id number] 11:31:00 Test Item Value Reference Range Interpretation Comments UA Ketones (test code = UA Negative mg/dL Ketones) [facility] AND [id number] 11:31:00 Test Item Value Reference Range Interpretation Comments UA Bili (test code = Negative *NA*(02/19/19 UA Bili) 5:31 AM) [facility] AND [id number] 11:31:00 Test Item Value Reference Range Interpretation Comments UA Blood (test code = Negative (02/19/19 5:31 UA Blood) AM) [facility] AND [id number] 11:31:00 Test Item Value Reference Range Interpretation Comments UA Urobilinogen (test code = UA 0.2 0.1-1.0 Urobilinogen) [facility] AND [id number] 11:31:00 Test Item Value Reference Range Interpretation Comments UA Nitrite (test code Negative (02/19/19 5:31 = UA Nitrite) AM) [facility] AND [id number] 11:31:00 Test Item Value Reference Range Interpretation Comments UA Leuk Est (test Negative (02/19/19 5:31 code = UA Leuk Est) AM) [facility] AND [id number] 11:31:00 Test Item Value Reference Range Interpretation Comments UA Sq Epi (test code = UA Sq Epi) Rare /LPF [facility] AND [id number] 11:31:00 Test Item Value Reference Range Interpretation Comments UA WBC (test code = UA WBC) 0-2 /HPF [facility] AND [id number] 11:31:00 Test Item Value Reference Range Interpretation Comments UA RBC (test code = 0-2 /HPF See_Comment [Automa yanely message] The UA RBC) system which ge nerated this result tra nsmitted reference range : <=2. The reference range was not used to interpr et this result as brielle l/abnormal. [facility] AND [id number] 11:31:00 Test Item Value Reference Range Interpretation Comments UA Bacteria (test code = UA Bacteria) rare [facility]JiyczqvEANWAASESU3331-79-27 22:40:00 Test Item Value Reference Range Interpretation Comments WBC (test code = WBC) 16.7 3.7-10.4 [facility] HospitalOjbkcfeGPBAFPAZFA5151-36-34 22:40:00 Test Item Value Reference Range Interpretation Comments RBC (test code = RBC) 5.34 4.70-6.10 [facility] HospitalQqticcaTQLYSJMDGS0950-48-44 22:40:00 Test Item Value Reference Range Interpretation Comments Hgb (test code = Hgb) 13.4 14.0-18.0 [facility] HospitalQxtvxfwUFCDIWJGXW3745-00-25 22:40:00 Test Item Value Reference Range Interpretation Comments Hct (test code = Hct) 40.8 42.0-54.0 [facility] HospitalBoitmfgOKUXWQGZEX4896-89-50 22:40:00 Test Item Value Reference Range Interpretation Comments MCV (test code = MCV) 76.4 80.0-94.0 [facility] HospitalVeeyrjtUOUBQRTVTV4834-05-77 22:40:00 Test Item Value Reference Range Interpretation Comments MCH (test code = MCH) 25.0 pg 27.0-31.0 [facility] HospitalEkkbqofIIJJGPFSUY8725-70-84 22:40:00 Test Item Value Reference Range Interpretation Comments MCHC (test code = MCHC) 32.7 32.0-36.0 [facility] HospitalBnzhxxhZQGZEPAYAF0305-43-62 22:40:00 Test Item Value Reference Range Interpretation Comments RDW (test code = RDW) 17.9 11.5-14.5 [facility] HospitalPpfbjweJGREVFSFUQ4111-28-66 22:40:00 Test Item Value Reference Range Interpretation Comments Platelet (test code = Platelet) 465 133-450 [facility] HospitalTqqtzsxEMFUJDPDQH6178-08-78 22:40:00 Test Item Value Reference Range Interpretation Comments MPV (test code = MPV) 8.3 7.4-10.4 [facility] HospitalJsfnnktXAKVFDTMWB6098-75-25 22:40:00 Test Item Value Reference Range Interpretation Comments Segs (test code = Segs) 71.8 45.0-75.0 [facility] HospitalWiycuagEBNQNZDHSU9630-33-01 22:40:00 Test Item Value Reference Range Interpretation Comments Lymphocytes (test code = Lymphocytes) 20.6 20.0-40.0 [facility] HospitalNcrmsmrBADYQNKCKM2397-05-81 22:40:00 Test Item Value Reference Range Interpretation Comments Monocytes (test code = Monocytes) 6.1 2.0-12.0 [facility] HospitalSpwrkykOZPCOHZECB0345-83-74 22:40:00 Test Item Value Reference Range Interpretation Comments Eosinophils (test code = 1.0 See_Comment [A utomated message] The Eosinophils) system which ge nerated this result tra nsmitted reference range : <=4.0. The reference r matthieu was not used to int erpret this result as normal/abnormal . [facility] HospitalMxvtvdqWVCXFHMLOA8500-14-52 22:40:00 Test Item Value Reference Range Interpretation Comments Basophils (test code = 0.5 See_Comment [Aut omated message] The Basophils) system which ge nerated this result tra nsmitted reference range : <=1.0. The reference r matthieu was not used to int erpret this result as normal/abnormal . [facility] HospitalCmqgkuzHUVGBBOOQE2011-23-25 22:40:00 Test Item Value Reference Range Interpretation Comments Neutrophils # (test code = Neutrophils 12.0 1.5-8.1 #) [facility] HospitalDvzzhyuLEQQUQRWNT9266-63-59 22:40:00 Test Item Value Reference Range Interpretation Comments Lymphocytes # (test code = Lymphocytes 3.4 1.0-5.5 #) [facility] HospitalVpcdvjhROFLZBEKRV9033-01-09 22:40:00 Test Item Value Reference Range Interpretation Comments Monocytes # (test code 1.0 See_Comment [Aut omated message] The = Monocytes #) system which generated this result tra nsmitted reference range : <=0.8. The reference r matthieu was not used to int erpret this result as normal/abnormal . [facility] HospitalKrdjjzrAOWUJOPMDX7802-26-23 22:40:00 Test Item Value Reference Range Interpretation Comments Eosinophils # (test code 0.2 See_Comment [A utomated message] The = Eosinophils #) system whic h generated this result tra nsmitted reference range : <=0.5. The reference r matthieu was not used to int erpret this result as normal/abnormal . [facility] HospitalCfzbosmSIFRQGABAE1363-88-43 22:40:00 Test Item Value Reference Range Interpretation Comments Basophils # (test code 0.1 See_Comment [Aut omated message] The = Basophils #) system which generated this result tra nsmitted reference range : <=0.2. The reference r matthieu was not used to int erpret this result as normal/abnormal . [facility] HospitalEkrwfgtWYIWGRNKMG0271-52-27 22:40:00 Test Item Value Reference Range Interpretation Comments Microcyte (test code = 1+ *ABN*(02/17/19 Microcyte) 4:40 PM) [facility] HospitalFsxoyoiLQXOLUPYHH3099-62-03 10:46:00 Test Item Value Reference Range Interpretation Comments Segs (test code = Segs) 63.9 45.0-75.0 [facility] HospitalAilaknqHLHUSKKTYD1248-54-01 10:46:00 Test Item Value Reference Range Interpretation Comments Lymphocytes (test code = Lymphocytes) 26.9 20.0-40.0 [facility] HospitalNbxzxgmHIBGRHJHBS5972-40-19 10:46:00 Test Item Value Reference Range Interpretation Comments Monocytes (test code = Monocytes) 6.9 2.0-12.0 [facility] HospitalEudvciaSKYQTWHBAK0995-21-57 10:46:00 Test Item Value Reference Range Interpretation Comments Eosinophils (test code = 1.9 See_Comment [A utomated message] The Eosinophils) system which ge nerated this result tra nsmitted reference range : <=4.0. The reference r matthieu was not used to int erpret this result as normal/abnormal . [facility] HospitalXagrnwcTQVXCVDLVK4858-01-53 10:46:00 Test Item Value Reference Range Interpretation Comments Basophils (test code = 0.4 See_Comment [Aut omated message] The Basophils) system which ge nerated this result tra nsmitted reference range : <=1.0. The reference r matthieu was not used to int erpret this result as normal/abnormal . [facility] HospitalDrjkgslSTPBOLDYJZ0583-41-48 10:46:00 Test Item Value Reference Range Interpretation Comments Neutrophils # (test code = Neutrophils 7.5 1.5-8.1 #) [facility] HospitalGrzbkfaCEIDRDKFGX2401-88-89 10:46:00 Test Item Value Reference Range Interpretation Comments Lymphocytes # (test code = Lymphocytes 3.1 1.0-5.5 #) [facility] HospitalHxjimjgEHMETCNCQJ5932-64-73 10:46:00 Test Item Value Reference Range Interpretation Comments Monocytes # (test code 0.8 See_Comment [Aut omated message] The = Monocytes #) system which generated this result tra nsmitted reference range : <=0.8. The reference r matthieu was not used to int erpret this result as normal/abnormal . [facility] HospitalXnffxhxZZLUQHGFFO2104-65-23 10:46:00 Test Item Value Reference Range Interpretation Comments Eosinophils # (test code 0.2 See_Comment [A utomated message] The = Eosinophils #) system icixic h generated this result tra nsmitted reference range : <=0.5. The reference r matthieu was not used to int erpret this result as normal/abnormal . [facility] HospitalTopuomcAJBYQSEXKQ2443-51-59 10:46:00 Test Item Value Reference Range Interpretation Comments Microcyte (test code = 1+ *ABN*(02/15/19 Microcyte) 4:46 AM) [facility] HospitalIdcpgwxHNCARRWEJP1308-42-40 10:46:00 Test Item Value Reference Range Interpretation Comments WBC (test code = WBC) 11.7 3.7-10.4 [facility] HospitalOjicpbvWUZUXPJSFD9243-31-50 10:46:00 Test Item Value Reference Range Interpretation Comments RBC (test code = RBC) 5.13 4.70-6.10 [facility] HospitalNammucmRJDGMQPOOT5826-52-83 10:46:00 Test Item Value Reference Range Interpretation Comments Hgb (test code = Hgb) 12.4 14.0-18.0 [facility] HospitalCetglxiLIFDAHWBHJ4908-69-85 10:46:00 Test Item Value Reference Range Interpretation Comments Hct (test code = Hct) 39.5 42.0-54.0 [facility] HospitalGhrduwoFJQNHDBDCW6680-38-50 10:46:00 Test Item Value Reference Range Interpretation Comments MCV (test code = MCV) 77.1 80.0-94.0 [facility] HospitalSexmpaqQDSLFAZPKF5933-40-35 10:46:00 Test Item Value Reference Range Interpretation Comments MCH (test code = MCH) 24.1 pg 27.0-31.0 [facility] HospitalZcetpvrEVKRTGSXLR8358-73-40 10:46:00 Test Item Value Reference Range Interpretation Comments MCHC (test code = MCHC) 31.2 32.0-36.0 [facility] HospitalYnndyfeXVXSDINTKU2269-04-42 10:46:00 Test Item Value Reference Range Interpretation Comments RDW (test code = RDW) 17.2 11.5-14.5 [facility] HospitalXsuqfupLJIVMMISNW1810-95-24 10:46:00 Test Item Value Reference Range Interpretation Comments Platelet (test code = Platelet) 406 133-450 [facility] HospitalMvanxdzFKSJGNKISW9024-54-88 10:46:00 Test Item Value Reference Range Interpretation Comments MPV (test code = MPV) 8.6 7.4-10.4 [facility]2019-11-27 10:14:00 Test Item Value Reference Range Interpretation Comments Iron (test code = Iron) 48 45-160 [facility]2019-11-27 10:14:00 Test Item Value Reference Range Interpretation Comments TIBC (test code = TIBC) 276 228-428 [facility]2019-11-27 10:14:00 Test Item Value Reference Range Interpretation Comments UIBC (test code = UIBC) 228 110-370 [facility]2019-11-27 10:14:00 Test Item Value Reference Range Interpretation Comments % Satur Fe (test code = % Satur Fe) 17 12-57 [facility]2019-11-27 10:14:00 Test Item Value Reference Range Interpretation Comments Ferritin Lvl (test code = Ferritin Lvl) 173 22-275 [facility]2019-11-27 10:14:00 Test Item Value Reference Range Interpretation Comments Phosphorus (test code = Phosphorus) 3.4 2.5-4.5 [facility]2019-11-27 10:14:00 Test Item Value Reference Range Interpretation Comments Magnesium Lvl (test code = Magnesium 2.2 1.8-2.4 Lvl) [facility]2019-11-25 10:27:00 Test Item Value Reference Range Interpretation Comments ALT (test code = ALT) 49 See_Comment [Auto mated message] The system which ge nerated this result transmit yanely reference range : <=65. The reference range was not used to interpr et this result as brielle l/abnormal. [facility]2019-11-25 10:27:00 Test Item Value Reference Range Interpretation Comments Albumin Lvl (test code = Albumin Lvl) 2.8 3.5-5.0 [facility]2019-11-25 10:27:00 Test Item Value Reference Range Interpretation Comments Alk Phos (test code = Alk Phos) 76 39-136 [facility]2019-11-25 10:27:00 Test Item Value Reference Range Interpretation Comments Glucose Lvl (test code = Glucose Lvl) 108 70-99 [facility]2019-11-25 10:27:00 Test Item Value Reference Range Interpretation Comments BUN (test code = BUN) 8 7-22 [facility]2019-11-25 10:27:00 Test Item Value Reference Range Interpretation Comments Creatinine Lvl (test code = Creatinine 0.60 0.50-1.40 Lvl) [facility]2019-11-25 10:27:00 Test Item Value Reference Range Interpretation Comments Sodium Lvl (test code = Sodium Lvl) 141 135-145 [facility]2019-11-25 10:27:00 Test Item Value Reference Range Interpretation Comments Potassium Lvl (test code = Potassium 3.7 3.5-5.1 Lvl) [facility]2019-11-25 10:27:00 Test Item Value Reference Range Interpretation Comments Chloride Lvl (test code = Chloride Lvl) 106 95-109 [facility]2019-11-25 10:27:00 Test Item Value Reference Range Interpretation Comments CO2 (test code = CO2) 27 24-32 [facility]2019-11-25 10:27:00 Test Item Value Reference Range Interpretation Comments Calcium Lvl (test code = Calcium Lvl) 8.4 8.5-10.5 [facility]2019-11-25 10:27:00 Test Item Value Reference Range Interpretation Comments Bili Total (test code = Bili Total) 0.3 0.2-1.3 [facility]2019-11-25 10:27:00 Test Item Value Reference Range Interpretation Comments Total Protein (test code = Total 7.4 6.4-8.4 Protein) [facility]2019-11-25 10:27:00 Test Item Value Reference Range Interpretation Comments AST (test code = AST) 45 See_Comment [Auto mated message] The system which ge nerated this result transmit yanely reference range : <=37. The reference range was not used to interpr et this result as brielle l/abnormal. [facility]2019-11-25 10:27:00 Test Item Value Reference Range Interpretation Comments eGFR (test code = eGFR) 121 [facility]2019-11-25 10:27:00 Test Item Value Reference Range Interpretation Comments AGAP (test code = AGAP) 11.7 10.0-20.0 [facility]2019-11-25 10:27:00 Test Item Value Reference Range Interpretation Comments B/C Ratio (test code = B/C Ratio) 13 1 6-25 [facility]2019-11-25 10:27:00 Test Item Value Reference Range Interpretation Comments Globulin (test code = Globulin) 4.6 2.7-4.2 [facility]2019-11-25 10:27:00 Test Item Value Reference Range Interpretation Comments A/G Ratio (test code = A/G Ratio) 0.6 1 0.7-1.6 [facility] HospitalEyjbzvtXPPCCCCHSZ4386-69-86 10:27:00 Test Item Value Reference Range Interpretation Comments Bands (test code = 1.0 See_Comment [Automat ed message] The Bands) system which ge nerated this result transmit yanely reference range : <=11.0. The reference r matthieu was not used to interpr et this result as brielle l/abnormal. [facility] HospitalIctioedEKSJTINDQI1097-65-84 10:27:00 Test Item Value Reference Range Interpretation Comments Metamyelocytes (test code 3.0 See_Comment [ Automated message] = Metamyelocytes) The system which generated this result transmitted ref erence range: <=1.0. T he reference range was not used to int erpret this result as normal/abnormal . [facility] HospitalUuchnvdFPONQKRQTU8688-71-34 10:27:00 Test Item Value Reference Range Interpretation Comments Myelocytes (test code = Myelocytes) 4.0 [facility] HospitalKnuycjbEPXAJXMSBF7274-11-18 10:27:00 Test Item Value Reference Range Interpretation Comments Promyelocytes (test code = 1.0 Promyelocytes) [facility] HospitalMpfgyoyGEXZSHZXFO5084-34-00 10:27:00 Test Item Value Reference Range Interpretation Comments Atypical Lymphs (test code = Atypical 0.0 Lymphs) [facility] HospitalNfdbzllODTMBXNUBF6532-68-94 10:27:00 Test Item Value Reference Range Interpretation Comments Plt Morph (test code = Normal (02/10/19 4:27 Plt Morph) AM) [facility]VosguqqAQUDGGOORJ9755-55-59 19:50:00 Test Item Value Reference Range Interpretation Comments Vanco Lvl (test code = Vanco Lvl) 10.0 [facility]2019-11-23 19:16:00 Test Item Value Reference Range Interpretation Comments Phosphorus (test code = Phosphorus) 1.8 2.5-4.5 [facility]2019-11-23 19:16:00 Test Item Value Reference Range Interpretation Comments Magnesium Lvl (test code = Magnesium 2.1 1.8-2.4 Lvl) [facility] HospitalBiefgbeEBRRJLNILPMO8136-64-95 19:16:00 Test Item Value Reference Range Interpretation Comments AGAP (test code = AGAP) 10.9 10.0-20.0 [facility] HospitalQdrewvuUZICMHUEATAS3341-19-13 19:16:00 Test Item Value Reference Range Interpretation Comments B/C Ratio (test code = B/C Ratio) 11 1 6-25 [facility] HospitalQountqgPYNCVWTCZNOU7571-57-34 19:16:00 Test Item Value Reference Range Interpretation Comments Globulin (test code = Globulin) 4.6 2.7-4.2 [facility] HospitalVjfzcjoUWAZTLXQOBXH1706-40-59 19:16:00 Test Item Value Reference Range Interpretation Comments A/G Ratio (test code = A/G Ratio) 0.6 1 0.7-1.6 [facility] HospitalPugbpudWTEYPVAYYEFR8648-21-89 19:16:00 Test Item Value Reference Range Interpretation Comments Glucose Lvl (test code = Glucose Lvl) 194 70-99 [facility] HospitalImwxxarGCTGIGCAFJNT5660-58-90 19:16:00 Test Item Value Reference Range Interpretation Comments BUN (test code = BUN) 7 7-22 [facility] HospitalDoelcfyQUDBXHOAZPEF1406-23-13 19:16:00 Test Item Value Reference Range Interpretation Comments Creatinine Lvl (test code = Creatinine 0.62 0.50-1.40 Lvl) [facility] HospitalEtkclxeNPWEEDPVJFNO0134-85-66 19:16:00 Test Item Value Reference Range Interpretation Comments Sodium Lvl (test code = Sodium Lvl) 138 135-145 [facility] HospitalDvojydaCATLTMBNBPEK9756-09-39 19:16:00 Test Item Value Reference Range Interpretation Comments Potassium Lvl (test code = Potassium 3.9 3.5-5.1 Lvl) [facility] HospitalUkdfexhUQHVWZFYQJGE4777-12-12 19:16:00 Test Item Value Reference Range Interpretation Comments Chloride Lvl (test code = Chloride Lvl) 103 95-109 [facility] HospitalFosirhaPTMAYQZRXDZO6766-74-17 19:16:00 Test Item Value Reference Range Interpretation Comments CO2 (test code = CO2) 28 24-32 [facility] HospitalTbkpsswGHDENYBWUDBQ8550-05-70 19:16:00 Test Item Value Reference Range Interpretation Comments Calcium Lvl (test code = Calcium Lvl) 8.6 8.5-10.5 [facility] HospitalYyqlboxAHDCDJQQHHQH5745-10-03 19:16:00 Test Item Value Reference Range Interpretation Comments Total Protein (test code = Total 7.5 6.4-8.4 Protein) [facility] HospitalZqlnnfyAQQEACGQEBWZ8748-22-34 19:16:00 Test Item Value Reference Range Interpretation Comments Albumin Lvl (test code = Albumin Lvl) 2.9 3.5-5.0 [facility] HospitalQqgrkswLJLRHBMXSLBE3875-72-07 19:16:00 Test Item Value Reference Range Interpretation Comments ALT (test code = ALT) 43 See_Comment [Auto mated message] The system which ge nerated this result transmit yanely reference range : <=65. The reference range was not used to interpr et this result as brielle l/abnormal. [facility] HospitalXsnbdscOJJJNZAYQXXE9185-18-64 19:16:00 Test Item Value Reference Range Interpretation Comments AST (test code = AST) 37 See_Comment [Auto mated message] The system which ge nerated this result transmit yanely reference range : <=37. The reference range was not used to interpr et this result as brielle l/abnormal. [facility] HospitalCapjnkuOSTINVSXSEXQ8919-69-83 19:16:00 Test Item Value Reference Range Interpretation Comments Alk Phos (test code = Alk Phos) 83 39-136 [facility] HospitalRsismhbKSEQVLZIRHKA9576-79-81 19:16:00 Test Item Value Reference Range Interpretation Comments Bili Total (test code = Bili Total) 0.4 0.2-1.3 [facility] HospitalFyiviqvRUCLKHOWASIK6926-41-70 19:16:00 Test Item Value Reference Range Interpretation Comments eGFR (test code = eGFR) 119 [facility] HospitalObxfahmAUOWSZGKSM7355-48-70 19:16:00 Test Item Value Reference Range Interpretation Comments Bands (test code = 0.0 See_Comment [Automat ed message] The Bands) system which ge nerated this result transmit yanely reference range : <=11.0. The reference r matthieu was not used to interpr et this result as brielle l/abnormal. [facility] HospitalTlnyeuwTOEQGQYEBN8746-11-92 19:16:00 Test Item Value Reference Range Interpretation Comments Metamyelocytes (test code 2.0 See_Comment [ Automated message] = Metamyelocytes) The system which generated this result transmitted ref erence range: <=1.0. T he reference range was not used to int erpret this result as normal/abnormal . [facility] HospitalKxtoxsgHDFURHSAZJ2226-52-31 19:16:00 Test Item Value Reference Range Interpretation Comments Myelocytes (test code = Myelocytes) 2.0 [facility] HospitalYpplekmXXFUAYQUSI7794-38-97 19:16:00 Test Item Value Reference Range Interpretation Comments Atypical Lymphs (test code = Atypical 0.0 Lymphs) [facility] HospitalNtlkujgMHRHHYTZQC9944-24-77 19:16:00 Test Item Value Reference Range Interpretation Comments NRBC (test code = NRBC) 1 [facility] HospitalUouqsuhVAZOASVZZC4532-90-28 19:16:00 Test Item Value Reference Range Interpretation Comments Plt Morph (test code = Normal (02/08/19 1:16 Plt Morph) PM) [facility] HospitalPdjcjzwCSUJQOQMXT4005-01-01 19:16:00 Test Item Value Reference Range Interpretation Comments Anisocyte (test code = 1+ *ABN*(02/08/19 Anisocyte) 1:16 PM) [facility] HospitalRabgvffOMOWBUYYZI7882-58-35 19:16:00 Test Item Value Reference Range Interpretation Comments Hypochrom (test code = 1+ (02/08/19 1:16 Hypochrom) PM) [facility] HospitalRcpmvocDJEKMBAEMF9313-40-04 19:16:00 Test Item Value Reference Range Interpretation Comments Prealbumin (test code = Prealbumin) 9.1 18.0-45.0 [facility] HospitalNoizvycBQMIIY8890-35-78 19:16:00 Test Item Value Reference Range Interpretation Comments Trig (test code = Trig) 146 [facility] HospitalUnwimqxXJGKPZ1282-81-25 19:16:00 Test Item Value Reference Range Interpretation Comments Chol (test code = Chol) 158 [facility]FpsmggvKFWWRL6057-91-84 19:16:00 Test Item Value Reference Range Interpretation Comments HDL (test code = HDL) 26 [facility] HospitalFjmrvzmBWKFNN5057-62-87 19:16:00 Test Item Value Reference Range Interpretation Comments LDL (Calculated) (test code = LDL 103 (Calculated)) [facility]:16:00 Test Item Value Reference Range Interpretation Comments VLDL (test code = VLDL) 29 1 [facility] WzbayswZFKTLY0114-65-90 19:16:00 Test Item Value Reference Range Interpretation Comments CHD Risk (test code = CHD Risk) 6.08 1 4.00-7.30 [facility] [place] WARMPKFUD5524-98-63 19:16:00 Test Item Value Reference Range Interpretation Comments Hgb A1C (test code = Hgb A1C) 7.3 [facility] AND [id number] 16:57:00 Test Item Value Reference Range Interpretation Comments UA Color (test code = Yellow *NA*(02/08/19 UA Color) 10:57 AM) [facility] AND [id number] 16:57:00 Test Item Value Reference Range Interpretation Comments UA Turbidity (test code Slight *ABN*(02/08/19 = UA Turbidity) 10:57 AM) [facility] AND [id number] 16:57:00 Test Item Value Reference Range Interpretation Comments UA Spec Grav (test code = UA Spec 1.021 1 Grav) [facility] AND [id number] 16:57:00 Test Item Value Reference Range Interpretation Comments UA pH (test code = UA pH) 6.0 1 5.0-8.0 [facility] AND [id number] 16:57:00 Test Item Value Reference Range Interpretation Comments UA Protein (test code = UA Negative mg/dL Protein) [facility] AND [id number] 16:57:00 Test Item Value Reference Range Interpretation Comments UA Glucose (test code = UA Negative mg/dL Glucose) [facility] AND [id number] 16:57:00 Test Item Value Reference Range Interpretation Comments UA Ketones (test code = UA Negative mg/dL Ketones) [facility] AND [id number] 16:57:00 Test Item Value Reference Range Interpretation Comments UA Bili (test code = Negative *NA*(02/08/19 UA Bili) 10:57 AM) [facility] AND [id number] 16:57:00 Test Item Value Reference Range Interpretation Comments UA Blood (test code = Negative (02/08/19 10:57 [facility]A Blood) AM) [facility] [id number] 16:57:00 Test Item Value Reference Range Interpretation Comments UA Urobilinogen (test code = UA no gt 0.1-1.0 Urobilinogen) [facility] [id number] 16:57:00 Test Item Value Reference Range Interpretation Comments UA Nitrite (test code Negative (02/08/19 = UA Nitrite) 10:57 AM) [facility] [id number] 16:57:00 Test Item Value Reference Range Interpretation Comments UA Leuk Est (test code Trace *ABN*(02/08/19 = UA Leuk Est) 10:57 AM) [facility] [id number] 16:57:00 Test Item Value Reference Range Interpretation Comments UA Sq Epi (test code = UA Sq Occasional /LPF Epi) [facility] [id number] 16:57:00 Test Item Value Reference Range Interpretation Comments UA WBC (test code = 2 See_Comment [Automa yanely message] The UA WBC) system which ge nerated this result transmit yanely reference range : <=5. The reference range was not used to interpr et this result as brielle l/abnormal. [facility] [id number] 16:57:00 Test Item Value Reference Range Interpretation Comments UA Mucus (test code = UA Mucus) Few /LPF [facility] [id number] 10:25:00 Test Item Value Reference Range Interpretation Comments Total CK (test code = Total CK) 396 12-191 [facility] ZMXMXKR7152-46-72 10:25:00 Test Item Value Reference Range Interpretation Comments CK MB (test code = CK MB) 1.7 0.5-3.6 [facility] [id number] 10:25:00 Test Item Value Reference Range Interpretation Comments CK MB Index (test 0.4 1 See_Comment [Automate d message] The code = CK MB Index) system w [facility] generated this result transmit yanely reference range : <=2.5. The reference range was not used to interpr et this result as brielle l/abnormal. [facility]ioannCHEM [id number] 10:25:00 Test Item Value Reference Range Interpretation Comments Glucose Lvl (test code = Glucose Lvl) 125 70-99 [facility]2019-11-22 10:25:00 Test Item Value Reference Range Interpretation Comments BUN (test code = BUN) 7 7-22 [facility]2019-11-22 10:25:00 Test Item Value Reference Range Interpretation Comments Creatinine Lvl (test code = Creatinine 0.60 0.50-1.40 Lvl) [facility]2019-11-22 10:25:00 Test Item Value Reference Range Interpretation Comments Sodium Lvl (test code = Sodium Lvl) 142 135-145 [facility]2019-11-22 10:25:00 Test Item Value Reference Range Interpretation Comments Potassium Lvl (test code = Potassium 3.7 3.5-5.1 Lvl) [facility]2019-11-22 10:25:00 Test Item Value Reference Range Interpretation Comments Chloride Lvl (test code = Chloride Lvl) 106 95-109 [facility]2019-11-22 10:25:00 Test Item Value Reference Range Interpretation Comments CO2 (test code = CO2) 31 24-32 [facility]2019-11-22 10:25:00 Test Item Value Reference Range Interpretation Comments Calcium Lvl (test code = Calcium Lvl) 8.2 8.5-10.5 [facility]2019-11-22 10:25:00 Test Item Value Reference Range Interpretation Comments Total Protein (test code = Total 7.3 6.4-8.4 Protein) [facility]2019-11-22 10:25:00 Test Item Value Reference Range Interpretation Comments Albumin Lvl (test code = Albumin Lvl) 2.8 3.5-5.0 [facility]2019-11-22 10:25:00 Test Item Value Reference Range Interpretation Comments ALT (test code = ALT) 29 See_Comment [Auto mated message] The system which ge nerated this result transmit yanely reference range : <=65. The reference range was not used to interpr et this result as brielle l/abnormal. [place] [id number] 10:25:00 Test Item Value Reference Range Interpretation Comments AST (test code = AST) 27 See_Comment [Auto mated message] The system which ge nerated this result transmit yanely reference range : <=37. The reference range was not used to interpr et this result as brielle l/abnormal. [facility]2019-11-22 10:25:00 Test Item Value Reference Range Interpretation Comments Alk Phos (test code = Alk Phos) 84 39-136 [facility]2019-11-22 10:25:00 Test Item Value Reference Range Interpretation Comments Bili Total (test code = Bili Total) 0.4 0.2-1.3 [facility]2019-11-22 10:25:00 Test Item Value Reference Range Interpretation Comments eGFR (test code = eGFR) 121 [facility]2019-11-22 10:25:00 Test Item Value Reference Range Interpretation Comments AGAP (test code = AGAP) 8.7 10.0-20.0 [facility]2019-11-22 10:25:00 Test Item Value Reference Range Interpretation Comments B/C Ratio (test code = B/C Ratio) 12 1 6-25 [facility]2019-11-22 10:25:00 Test Item Value Reference Range Interpretation Comments Globulin (test code = Globulin) 4.5 2.7-4.2 [facility]2019-11-22 10:25:00 Test Item Value Reference Range Interpretation Comments A/G Ratio (test code = A/G Ratio) 0.6 1 0.7-1.6 [facility]2019-11-22 10:25:00 Test Item Value Reference Range Interpretation Comments Phosphorus (test code = Phosphorus) 1.9 2.5-4.5 [facility]2019-11-22 10:25:00 Test Item Value Reference Range Interpretation Comments Magnesium Lvl (test code = Magnesium 2.2 1.8-2.4 Lvl) [facility] Hospit[id number] 10:25:00 Test Item Value Reference Range Interpretation Comments WBC (test code = WBC) 13.7 3.7-10.4 [facility] HospitalVfacfjfEPEGQPJEAU5819-91-24 10:25:00 Test Item Value Reference Range Interpretation Comments RBC (test code = RBC) 4.77 4.70-6.10 [facility] HospitalGbxzbzuLVJCGMFOAY8763-67-14 10:25:00 Test Item Value Reference Range Interpretation Comments Hgb (test code = Hgb) 11.6 14.0-18.0 [facility] HospitalKhlzggmJQXAWZQPMB9423-17-17 10:25:00 Test Item Value Reference Range Interpretation Comments Hct (test code = Hct) 37.0 42.0-54.0 [facility] HospitalTmtesoxOMBEUHAAVP2571-59-00 10:25:00 Test Item Value Reference Range Interpretation Comments MCV (test code = MCV) 77.6 80.0-94.0 [facility] HospitalBdtxruaFUGVLLESQB2592-64-23 10:25:00 Test Item Value Reference Range Interpretation Comments MCH (test code = MCH) 24.4 pg 27.0-31.0 [facility] HospitalGruynysBLRTGUWTUN1708-92-63 10:25:00 Test Item Value Reference Range Interpretation Comments MCHC (test code = MCHC) 31.4 32.0-36.0 [facility] HospitalTxwacmqTJLDCGDIAO0541-81-31 10:25:00 Test Item Value Reference Range Interpretation Comments RDW (test code = RDW) 17.0 11.5-14.5 [facility] HospitalSpynjwsBSUGDLXEQR7646-72-89 10:25:00 Test Item Value Reference Range Interpretation Comments Platelet (test code = Platelet) 247 133-450 [facility] HospitalUclltyhTLRJGCROWF1498-48-84 10:25:00 Test Item Value Reference Range Interpretation Comments MPV (test code = MPV) 9.0 7.4-10.4 [facility] HospitalDxdeqwxFRVYQEPRHR9547-10-50 10:25:00 Test Item Value Reference Range Interpretation Comments Plt Morph (test code = Normal (02/07/19 4:25 Plt Morph) AM) [facility] HospitalMgmijgrWTVQTHYTXY3927-44-06 10:25:00 Test Item Value Reference Range Interpretation Comments Segs (test code = Segs) 69.9 45.0-75.0 [facility] HospitalBkxqfruVPVVNMZQJV1218-29-79 10:25:00 Test Item Value Reference Range Interpretation Comments Lymphocytes (test code = Lymphocytes) 17.7 20.0-40.0 [facility] HospitalOfpbdvhKWDEARZMKN1892-42-26 10:25:00 Test Item Value Reference Range Interpretation Comments Monocytes (test code = Monocytes) 10.4 2.0-12.0 [facility] HospitalQcjazmcICZLGIZTLA8737-62-73 10:25:00 Test Item Value Reference Range Interpretation Comments Eosinophils (test code = 1.6 See_Comment [A utomated message] The Eosinophils) system which ge nerated this result tra nsmitted reference range : <=4.0. The reference r matthieu was not used to int erpret this result as normal/abnormal . [facility] HospitalTdfonieWLPQIPFPAC3215-18-97 10:25:00 Test Item Value Reference Range Interpretation Comments Basophils (test code = 0.4 See_Comment [Aut omated message] The Basophils) system which ge nerated this result tra nsmitted reference range : <=1.0. The reference r matthieu was not used to int erpret this result as normal/abnormal . [facility] HospitalQgvteixFMPHFUAMIQ6784-56-62 10:25:00 Test Item Value Reference Range Interpretation Comments Neutrophils # (test code = Neutrophils 9.6 1.5-8.1 #) [facility] HospitalPiioqulJBRACBVWDO0658-70-08 10:25:00 Test Item Value Reference Range Interpretation Comments Lymphocytes # (test code = Lymphocytes 2.4 1.0-5.5 #) [facility] HospitalXagumkfDGQSATAJTP1555-56-97 10:25:00 Test Item Value Reference Range Interpretation Comments Monocytes # (test code 1.4 See_Comment [Aut omated message] The = Monocytes #) system which generated this result tra nsmitted reference range : <=0.8. The reference r matthieu was not used to int erpret this result as normal/abnormal . [facility] HospitalVigomtuJWSOHXBCLQ7659-59-05 10:25:00 Test Item Value Reference Range Interpretation Comments Eosinophils # (test code 0.2 See_Comment [A utomated message] The = Eosinophils #) system [facility] generated this result tra nsmitted reference range : <=0.5. The reference r matthieu was not used to int erpret this result as normal/abnormal . [facility] HospitalDimtlboFIHZGIPWIE9469-42-31 10:25:00 Test Item Value Reference Range Interpretation Comments Basophils # (test code 0.1 See_Comment [Aut omated message] The = Basophils #) system which generated this result tra nsmitted reference range : <=0.2. The reference r matthieu was not used to int erpret this result as normal/abnormal . [facility] HospitalBmpdhslJGDXPSGOTR2841-26-10 10:25:00 Test Item Value Reference Range Interpretation Comments Microcyte (test code = 1+ *ABN*(02/07/19 Microcyte) 4:25 AM) [facility]2019-11-22 10:25:00 Test Item Value Reference Range Interpretation Comments Ca Ion WB (test code = Ca Ion WB) 1.13 1.05-1.25 [facility] PodioannPARATHYROID WFSPRKN0288-23-07 10:25:00 Test Item Value Reference Range Interpretation Comments Ca Norm WB (test code = Ca Norm WB) 1.07 1.05-1.25 [facility] PodioannCARJumpSellerAC ZHQPBSB5454-76-20 08:10:00 Test Item Value Reference Range Interpretation Comments CK MB (test code = CK MB) 3.2 0.5-3.6 [facility] PodioannYobongoAC RWTRNIU9569-71-10 08:10:00 Test Item Value Reference Range Interpretation Comments CK MB Index (test 0.4 1 See_Comment [Automate d message] The code = CK MB Index) system w [facility] generated this result transmit yanely reference range : <=2.5. The reference range was not used to interpr et this result as brielle l/abnormal. [facility] [employer]2019-11-21 08:10:00 Test Item Value Reference Range Interpretation Comments Troponin-I (test code no gt See_Comment [Auto mated message] The = Troponin-I) system which g enerated this result transmit yanely reference range : <=0.40. The reference r matthieu was not used to interpr et this result as brielle l/abnormal. [facility] [employer]2019-11-21 08:10:00 Test Item Value Reference Range Interpretation Comments Total CK (test code = Total CK) 881 12-191 [facility] [place] TCVVC5765-26-67 08:10:00 Test Item Value Reference Range Interpretation Comments Phosphorus (test code = Phosphorus) 1.2 2.5-4.5 [facility] [place] ASBWC5617-18-31 08:10:00 Test Item Value Reference Range Interpretation Comments Magnesium Lvl (test code = Magnesium 2.3 1.8-2.4 Lvl) [facility] MbvtqweZQRQJNWXABSJ4174-81-86 08:10:00 Test Item Value Reference Range Interpretation Comments AGAP (test code = AGAP) 7.4 10.0-20.0 [facility] KywfeoxRMOOHTSMWDRM7564-34-67 08:10:00 Test Item Value Reference Range Interpretation Comments B/C Ratio (test code = B/C Ratio) 8 1 6-25 [facility] HospitalPzkvbojJQLLFREGIZCJ5955-99-12 08:10:00 Test Item Value Reference Range Interpretation Comments Globulin (test code = Globulin) 4.4 2.7-4.2 [facility] [facility]ht[facility]UMJCKEASBLM3801-80-95 08:10:00 Test Item Value Reference Range Interpretation Comments A/G Ratio (test code = A/G Ratio) 0.7 1 0.7-1.6 [facility]JxgklwcEQLQPJXJNNZQ3315-32-65 08:10:00 Test Item Value Reference Range Interpretation Comments Glucose Lvl (test code = Glucose Lvl) 137 70-99 [facility] HospitalQlyoiwcPZGDWIQQWFMJ7678-65-39 08:10:00 Test Item Value Reference Range Interpretation Comments BUN (test code = BUN) 5 7-22 [facility] HospitalQqdrjobCJEELHOWKINU1408-29-66 08:10:00 Test Item Value Reference Range Interpretation Comments Creatinine Lvl (test code = Creatinine 0.60 0.50-1.40 Lvl) [facility] HospitalNwfimbcFECESTYZOOTN6892-51-84 08:10:00 Test Item Value Reference Range Interpretation Comments Sodium Lvl (test code = Sodium Lvl) 138 135-145 [facility] HospitalGphxbkdYEHNNNRFKHHY3900-15-30 08:10:00 Test Item Value Reference Range Interpretation Comments Potassium Lvl (test code = Potassium 3.4 3.5-5.1 Lvl) [facility] HospitalAvilqqtDNOGSEEQQDNB3730-02-55 08:10:00 Test Item Value Reference Range Interpretation Comments Chloride Lvl (test code = Chloride Lvl) 103 95-109 [facility] HospitalLvlbcbmVBQXGKHQCULZ1375-72-04 08:10:00 Test Item Value Reference Range Interpretation Comments CO2 (test code = CO2) 31 24-32 [facility] HospitalBstlztbSJQDUFZOUEVX1824-51-84 08:10:00 Test Item Value Reference Range Interpretation Comments Calcium Lvl (test code = Calcium Lvl) 7.9 8.5-10.5 [facility] HospitalLkzsmwaQLDDUPSRCFEI6100-41-99 08:10:00 Test Item Value Reference Range Interpretation Comments Total Protein (test code = Total 7.4 6.4-8.4 Protein) [facility] HospitalOqqqcenJITWUDLGUGUE7216-99-51 08:10:00 Test Item Value Reference Range Interpretation Comments Albumin Lvl (test code = Albumin Lvl) 3.0 3.5-5.0 [facility] HospitalUgajaevLIEMQOTKSKIU6050-81-02 08:10:00 Test Item Value Reference Range Interpretation Comments ALT (test code = ALT) 34 See_Comment [Auto mated message] The system which ge nerated this result transmit yanely reference range : <=65. The reference range was not used to interpr et this result as brielle l/abnormal. [facility] HospitalIvogjocBLIMTAPGJAUN4704-06-12 08:10:00 Test Item Value Reference Range Interpretation Comments AST (test code = AST) 34 See_Comment [Auto mated message] The system which ge nerated this result transmit yanely reference range : <=37. The reference range was not used to interpr et this result as brielle l/abnormal. [facility] HospitalZeulckaUNXUZXKKTEXP0803-00-48 08:10:00 Test Item Value Reference Range Interpretation Comments Alk Phos (test code = Alk Phos) 72 39-136 [facility] HospitalEiuydxwHASSPUJCGZEE2002-27-85 08:10:00 Test Item Value Reference Range Interpretation Comments Bili Total (test code = Bili Total) 0.5 0.2-1.3 [facility] HospitalDfxjdcoJHDBEWEHYZGS0855-10-01 08:10:00 Test Item Value Reference Range Interpretation Comments eGFR (test code = eGFR) 121 [facility] HospitalHwbawmhSOFRBOGQGG2207-12-52 08:10:00 Test Item Value Reference Range Interpretation Comments Segs (test code = Segs) 76.7 45.0-75.0 [facility] HospitalIdfhpquAJOXQNLDMH9132-16-40 08:10:00 Test Item Value Reference Range Interpretation Comments Lymphocytes (test code = Lymphocytes) 13.2 20.0-40.0 [facility] HospitalSatatngEATFHUWCGV6248-62-50 08:10:00 Test Item Value Reference Range Interpretation Comments Monocytes (test code = Monocytes) 8.6 2.0-12.0 [facility] HospitalRkyojlmYEANCQLBLU7346-34-48 08:10:00 Test Item Value Reference Range Interpretation Comments Eosinophils (test code = 1.5 See_Comment [A utomated message] The Eosinophils) system which ge nerated this result tra nsmitted reference range : <=4.0. The reference r matthieu was not used to int erpret this result as normal/abnormal . [facility] HospitalIkrtktcFPGMLHJVEU9540-76-00 08:10:00 Test Item Value Reference Range Interpretation Comments Basophils (test code = 0.0 See_Comment [Aut omated message] The Basophils) system which ge nerated this result tra nsmitted reference range : <=1.0. The reference r matthieu was not used to int erpret this result as normal/abnormal . [facility] HospitalCyggrodDEXTVRCYTC0609-68-53 08:10:00 Test Item Value Reference Range Interpretation Comments Neutrophils # (test code = Neutrophils 11.1 1.5-8.1 #) [facility] HospitalZgcvhpkHSQRUUQKUO1746-54-13 08:10:00 Test Item Value Reference Range Interpretation Comments Lymphocytes # (test code = Lymphocytes 1.9 1.0-5.5 #) [facility] HospitalVnbgmdrQARNYTFWFF3064-42-32 08:10:00 Test Item Value Reference Range Interpretation Comments Monocytes # (test code 1.2 See_Comment [Aut omated message] The = Monocytes #) system which generated this result tra nsmitted reference range : <=0.8. The reference r matthieu was not used to int erpret this result as normal/abnormal . [facility] HospitalYfguuxlLQEJNAQQXM5191-32-80 08:10:00 Test Item Value Reference Range Interpretation Comments Eosinophils # (test code 0.2 See_Comment [A utomated message] The = Eosinophils #) system whic h generated this result tra nsmitted reference range : <=0.5. The reference r matthieu was not used to int erpret this result as normal/abnormal . [facility] HospitalXoqsmxmGTQGKURZRY1040-33-78 08:10:00 Test Item Value Reference Range Interpretation Comments Basophils # (test code 0.0 See_Comment [Aut omated message] The = Basophils #) system which generated this result tra nsmitted reference range : <=0.2. The reference r matthieu was not used to int erpret this result as normal/abnormal . [facility] HospitalXuxakuhUGNWNMKJDD2669-10-66 08:10:00 Test Item Value Reference Range Interpretation Comments Microcyte (test code = 1+ *ABN*(02/06/19 Microcyte) 2:10 AM) [facility] HospitalCvztqgrKPKLQIHIXK4115-94-57 08:10:00 Test Item Value Reference Range Interpretation Comments Polychrom (test code = Moderate Polychrom) *ABN*(02/06/19 2:10 AM) [facility] HospitalJgmebhrZCIHFACWFO7271-60-66 08:10:00 Test Item Value Reference Range Interpretation Comments Large Plt (test code Moderate *ABN*(02/06/19 = Large Plt) 2:10 AM) [facility] HospitalFxqvxgjGKKPDIPXDB8833-77-92 08:10:00 Test Item Value Reference Range Interpretation Comments WBC (test code = WBC) 14.4 3.7-10.4 [facility] HospitalYxggrosZXKWYKPYLO8170-64-77 08:10:00 Test Item Value Reference Range Interpretation Comments RBC (test code = RBC) 4.82 4.70-6.10 [facility] HospitalUqhrzwwUTIKMJQULT9377-27-50 08:10:00 Test Item Value Reference Range Interpretation Comments Hgb (test code = Hgb) 11.8 14.0-18.0 [facility] HospitalNcvwkjfQWNMKOXEZJ6120-30-75 08:10:00 Test Item Value Reference Range Interpretation Comments Hct (test code = Hct) 37.3 42.0-54.0 [facility] HospitalQasuphdHGBNVUYALF7173-60-24 08:10:00 Test Item Value Reference Range Interpretation Comments MCV (test code = MCV) 77.4 80.0-94.0 [facility] HospitalTscoyqdMOKREGIRFQ7511-48-27 08:10:00 Test Item Value Reference Range Interpretation Comments MCH (test code = MCH) 24.5 pg 27.0-31.0 [facility] HospitalIcdgxekNBYXBPYJJT1587-32-74 08:10:00 Test Item Value Reference Range Interpretation Comments MCHC (test code = MCHC) 31.7 32.0-36.0 [facility] HospitalQbcfqzmEBQKVCRBMF4870-05-40 08:10:00 Test Item Value Reference Range Interpretation Comments RDW (test code = RDW) 16.8 11.5-14.5 [facility] HospitalKbzpsuqKWUDEYQLYF2719-77-90 08:10:00 Test Item Value Reference Range Interpretation Comments Platelet (test code = Platelet) 223 133-450 [facility] HospitalHqlwdowXONLCKZCVU1410-03-07 08:10:00 Test Item Value Reference Range Interpretation Comments MPV (test code = MPV) 9.0 7.4-10.4 [facility]2019-11-21 08:10:00 Test Item Value Reference Range Interpretation Comments Ca Ion WB (test code = Ca Ion WB) 1.03 1.05-1.25 [facility]2019-11-21 08:10:00 Test Item Value Reference Range Interpretation Comments Ca Norm WB (test code = Ca Norm WB) 0.98 1.05-1.25 [facility] PZKNMLE4849-76-43 22:15:00 Test Item Value Reference Range Interpretation Comments Total CK (test code = Total CK) 1104 12-191 [facility] LLLHHST1175-49-49 22:15:00 Test Item Value Reference Range Interpretation Comments CK MB (test code = CK MB) 4.2 0.5-3.6 [facility] ARQGKJN1243-18-39 22:15:00 Test Item Value Reference Range Interpretation Comments CK MB Index (test 0.4 1 See_Comment [Automate d message] The code = CK MB Index) system w [employer] generated this result transmit yanely reference range : <=2.5. The reference range was not used to interpr et this result as brielle l/abnormal. [facility] ZDAZHT5775-58-40 22:15:00 Test Item Value Reference Range Interpretation Comments U Amph Scr (test code Negative *NA*(02/05/19 = U Amph Scr) 4:15 PM) [facility] CQDLFY1303-86-41 22:15:00 Test Item Value Reference Range Interpretation Comments U Stephanie Scr (test code Negative *NA*(02/05/19 = U Stephanie Scr) 4:15 PM) [facility] FCRFFZ0117-24-95 22:15:00 Test Item Value Reference Range Interpretation Comments U Benzodiaz Scr (test Negative *NA*(02/05/19 code = U Benzodiaz Scr) 4:15 PM) [facility] TGGZBY6756-19-06 22:15:00 Test Item Value Reference Range Interpretation Comments U Cocaine Scr (test Negative *NA*(02/05/19 code = U Cocaine Scr) 4:15 PM) [facility] UGYGJI9455-34-26 22:15:00 Test Item Value Reference Range Interpretation Comments U Cannab Scr (test Negative *NA*(02/05/19 code = U Cannab Scr) 4:15 PM) [facility] LISURJ9785-80-26 22:15:00 Test Item Value Reference Range Interpretation Comments U Opiate Scr (test Negative *NA*(02/05/19 code = U Opiate Scr) 4:15 PM) [facility] [id number] 22:15:00 Test Item Value Reference Range Interpretation Comments U Phencyclidine Scr (test Negative code = U Phencyclidine *NA*(02/05/19 4:15 Scr) PM) [facility] [id number] 22:15:00 Test Item Value Reference Range Interpretation Comments U Methadone Scr (test Negative *NA*(02/05/19 code = U Methadone Scr) 4:15 PM) [facility] [id number] 22:15:00 Test Item Value Reference Range Interpretation Comments U Propoxyph Scr (test Negative *NA*(02/05/19 code = U Propoxyph Scr) 4:15 PM) [facility] LYGNKP7171-18-10 22:15:00 Test Item Value Reference Range Interpretation Comments UDS Note (test code = See Note (02/05/19 4:15 UDS Note) PM) [facility]KkasnysUAMDSPEQWG8138-93-60 18:35:00 Test Item Value Reference Range Interpretation Comments Vanco Tr (test code = Vanco Tr) 15.1 [facility] CenterRhrykinKDDHITFVMG1400-03-75 18:35:00 Test Item Value Reference Range Interpretation Comments Vanco Tr TND (test code = Vanco Tr 1300 1 TND) [facility] [id number] 16:57:00 Test Item Value Reference Range Interpretation Comments Amylase Lvl (test code = Amylase Lvl) 31 25-115 [facility] AWYCP0490-33-22 16:57:00 Test Item Value Reference Range Interpretation Comments Lipase Lvl (test code = Lipase Lvl) 74 73-393 [facility]Sarn[facility] YRABG0078-73-27 16:57:00 Test Item Value Reference Range Interpretation Comments Procalcitonin Lvl (test 3.13 See_Comment [Au tomated message] code = Procalcitonin Lvl) Th e system which generated this result transmitted ref erence range: <=0.10. The reference range was not used to interpr et this result as normal/abnormal . [facility] [id number] 16:57:00 Test Item Value Reference Range Interpretation Comments Lactic Acid Lvl (test code = Lactic 1.3 0.5-2.2 Acid Lvl) [facility]2019-11-20 16:57:00 Test Item Value Reference Range Interpretation Comments Bili Total (test code = Bili Total) 0.5 0.2-1.3 [facility]2019-11-20 16:57:00 Test Item Value Reference Range Interpretation Comments Bili Direct (test code 0.1 See_Comment [Aut omated message] The = Bili Direct) system which generated this result tra nsmitted reference range : <=0.3. The reference r matthieu was not used to int erpret this result as brielle l/abnormal. [facility]2019-11-20 16:57:00 Test Item Value Reference Range Interpretation Comments Bili Indirect (test 0.4 See_Comment [Automa yanely message] The code = Bili Indirect) system which generated this result tra nsmitted reference range : <=1.0. The reference r matthieu was not used to int erpret this result as normal/abnormal . [facility] HospitalXozljrqNDVNTGFDRTIK4242-25-10 16:57:00 Test Item Value Reference Range Interpretation Comments AGAP (test code = AGAP) 11.4 10.0-20.0 [facility] HospitalJiqlmodTYCTUWLKSDFF6421-79-33 16:57:00 Test Item Value Reference Range Interpretation Comments B/C Ratio (test code = B/C Ratio) 12 1 6-25 [facility] HospitalNqyuppzBLKEFOLJYYAB5189-68-75 16:57:00 Test Item Value Reference Range Interpretation Comments Globulin (test code = Globulin) 4.3 2.7-4.2 [facility] HospitalGipifzjUXPQPWKCFTSN4841-32-07 16:57:00 Test Item Value Reference Range Interpretation Comments A/G Ratio (test code = A/G Ratio) 0.6 1 0.7-1.6 [facility] HospitalEuzepgnHQLWGVGYRQEM8775-89-72 16:57:00 Test Item Value Reference Range Interpretation Comments Bili Total (test code = Bili Total) 0.5 0.2-1.3 [facility] HospitalUimhhvhEKOAWMHHNBNP2425-32-72 16:57:00 Test Item Value Reference Range Interpretation Comments Glucose Lvl (test code = Glucose Lvl) 121 70-99 [facility] HospitalKxzisdvHYJXRPOMSCKK3566-31-28 16:57:00 Test Item Value Reference Range Interpretation Comments BUN (test code = BUN) 7 7-22 [facility] HospitalRuomwgcTBWXXFZRGIIF7178-62-76 16:57:00 Test Item Value Reference Range Interpretation Comments Creatinine Lvl (test code = Creatinine 0.60 0.50-1.40 Lvl) [facility] HospitalXzpzsslVLQHBXHTUNEQ4256-67-66 16:57:00 Test Item Value Reference Range Interpretation Comments Sodium Lvl (test code = Sodium Lvl) 140 135-145 [facility] HospitalWsrsrekPFQZKJTUMQJB1001-14-45 16:57:00 Test Item Value Reference Range Interpretation Comments Potassium Lvl (test code = Potassium 4.4 3.5-5.1 Lvl) [facility] HospitalGqfwlqqUTFTEGRBBFRM7203-78-77 16:57:00 Test Item Value Reference Range Interpretation Comments Chloride Lvl (test code = Chloride Lvl) 108 95-109 [facility] HospitalTcqzudcYUQUDBRXXSJX0420-76-71 16:57:00 Test Item Value Reference Range Interpretation Comments CO2 (test code = CO2) 25 24-32 [facility] HospitalAfjneloEUZEZQVOKUOB6455-00-06 16:57:00 Test Item Value Reference Range Interpretation Comments Calcium Lvl (test code = Calcium Lvl) 7.5 8.5-10.5 [facility] HospitalBhpevhgGEYPKPKDZPXN3730-29-38 16:57:00 Test Item Value Reference Range Interpretation Comments Total Protein (test code = Total 7.0 6.4-8.4 Protein) [facility] HospitalCdfjlsrEAKVBBBBFFTB3404-52-77 16:57:00 Test Item Value Reference Range Interpretation Comments Albumin Lvl (test code = Albumin Lvl) 2.7 3.5-5.0 [facility] HospitalEftrruaFGVQNIASXSHG6118-91-74 16:57:00 Test Item Value Reference Range Interpretation Comments ALT (test code = ALT) 35 See_Comment [Auto mated message] The system which ge nerated this result transmit yanely reference range : <=65. The reference range was not used to interpr et this result as brielle l/abnormal. [facility] HospitalPzqmdzqIFCQHCTJPEVO5415-15-08 16:57:00 Test Item Value Reference Range Interpretation Comments AST (test code = AST) 51 See_Comment [Auto mated message] The system which ge nerated this result transmit yanely reference range : <=37. The reference range was not used to interpr et this result as brielle l/abnormal. [facility] HospitalUfoiwwlBJWPUIGIDOKV3159-88-01 16:57:00 Test Item Value Reference Range Interpretation Comments Alk Phos (test code = Alk Phos) 69 39-136 [facility]IknktfpNVVJNKREHEZE0441-92-80 16:57:00 Test Item Value Reference Range Interpretation Comments eGFR (test code = eGFR) 121 [facility] HospitalIgfbdviUPILUCKQKO6590-55-30 16:57:00 Test Item Value Reference Range Interpretation Comments WBC (test code = WBC) 16.5 3.7-10.4 [facility] HospitalUlzypbeHYPCYGUZVN1270-74-41 16:57:00 Test Item Value Reference Range Interpretation Comments RBC (test code = RBC) 5.09 4.70-6.10 [facility] HospitalIwudfaiFLNDLFNQQZ2115-99-18 16:57:00 Test Item Value Reference Range Interpretation Comments Hgb (test code = Hgb) 12.6 14.0-18.0 [facility] HospitalVbybbmrOVZSUHQHQV5415-69-43 16:57:00 Test Item Value Reference Range Interpretation Comments Hct (test code = Hct) 39.3 42.0-54.0 [facility] HospitalCwqiklqVBXJBMBPEB4340-46-23 16:57:00 Test Item Value Reference Range Interpretation Comments MCV (test code = MCV) 77.2 80.0-94.0 [facility] HospitalAzgobbeIPFAXJJMUZ0891-41-60 16:57:00 Test Item Value Reference Range Interpretation Comments MCH (test code = MCH) 24.7 pg 27.0-31.0 [facility] HospitalZtmqrkvGGXNNGJJKE4502-39-47 16:57:00 Test Item Value Reference Range Interpretation Comments MCHC (test code = MCHC) 32.0 32.0-36.0 [facility] HospitalQftycgiHEQEJVCYYC2626-56-17 16:57:00 Test Item Value Reference Range Interpretation Comments RDW (test code = RDW) 17.3 11.5-14.5 [facility] HospitalLhqdmaaTCACKKJZKC3375-67-21 16:57:00 Test Item Value Reference Range Interpretation Comments Platelet (test code = Platelet) 186 133-450 [facility] HospitalWllniiuOZPITPCESO3458-48-96 16:57:00 Test Item Value Reference Range Interpretation Comments MPV (test code = MPV) 8.4 7.4-10.4 [facility] HospitalAxvqlpaBUNVKZVZKQ1685-99-82 16:57:00 Test Item Value Reference Range Interpretation Comments Segs (test code = Segs) 74.6 45.0-75.0 [facility] HospitalNiiuxsuYUBZZJUAOZ4485-48-52 16:57:00 Test Item Value Reference Range Interpretation Comments Lymphocytes (test code = Lymphocytes) 13.0 20.0-40.0 [facility] HospitalJisbszwLXWGLIZXOO2791-69-22 16:57:00 Test Item Value Reference Range Interpretation Comments Monocytes (test code = Monocytes) 11.2 2.0-12.0 [facility] HospitalDhhgjksUYHZRTZYIO1744-78-72 16:57:00 Test Item Value Reference Range Interpretation Comments Eosinophils (test code = 0.3 See_Comment [A utomated message] The Eosinophils) system which ge nerated this result tra nsmitted reference range : <=4.0. The reference r matthieu was not used to int erpret this result as normal/abnormal . [facility] HospitalCzyvmlbHPAZMIRJMJ5022-82-12 16:57:00 Test Item Value Reference Range Interpretation Comments Basophils (test code = 0.9 See_Comment [Aut omated message] The Basophils) system which ge nerated this result tra nsmitted reference range : <=1.0. The reference r matthieu was not used to int erpret this result as normal/abnormal . [facility] HospitalQdbualgOGYPKXQEUI8144-27-92 16:57:00 Test Item Value Reference Range Interpretation Comments Neutrophils # (test code = Neutrophils 12.3 1.5-8.1 #) [facility] HospitalUufcbdhZUOKGGQPQP0636-70-98 16:57:00 Test Item Value Reference Range Interpretation Comments Lymphocytes # (test code = Lymphocytes 2.1 1.0-5.5 #) [facility] HospitalUjuwytpCULQPSKOMJ7314-76-72 16:57:00 Test Item Value Reference Range Interpretation Comments Monocytes # (test code 1.9 See_Comment [Aut omated message] The = Monocytes #) system which generated this result tra nsmitted reference range : <=0.8. The reference r mathtieu was not used to int erpret this result as normal/abnormal . [facility] HospitalLgriesiPENGNKZXNH5242-32-53 16:57:00 Test Item Value Reference Range Interpretation Comments Eosinophils # (test code 0.1 See_Comment [A utomated message] The = Eosinophils #) system whic h generated this result tra nsmitted reference range : <=0.5. The reference r matthieu was not used to int erpret this result as normal/abnormal . [facility] HospitalNinqxggUHAWFBIJYB4636-39-26 16:57:00 Test Item Value Reference Range Interpretation Comments Basophils # (test code 0.1 See_Comment [Aut omated message] The = Basophils #) system which generated this result tra nsmitted reference range : <=0.2. The reference r matthieu was not used to int erpret this result as normal/abnormal . [facility] HospitalGcjncngUGZJTZRAOZ4667-30-88 16:57:00 Test Item Value Reference Range Interpretation Comments Microcyte (test code = 1+ *ABN*(02/05/19 Microcyte) 10:57 AM) [facility]CHE[facility] QARDD2506-79-07 10:15:00 Test Item Value Reference Range Interpretation Comments Magnesium Lvl (test code = Magnesium 1.8 1.8-2.4 Lvl) [facility] VQSIY5389-77-49 10:15:00 Test Item Value Reference Range Interpretation Comments Phosphorus (test code = Phosphorus) 2.0 2.5-4.5 [facility]ZxqtiyeWXNVVDIDUT9264-66-12 10:15:00 Test Item Value Reference Range Interpretation Comments Large Plt (test code Moderate *ABN*(02/05/19 = Large Plt) 4:15 AM) [facility] HospitalPmscotcSBEWGDJUEK2538-61-96 10:15:00 Test Item Value Reference Range Interpretation Comments Hep Bs Ag (test code Negative *NA*(02/05/19 = Hep Bs Ag) 4:15 AM) [facility] HospitalNioimfsKZHJWUVDRX5923-97-64 10:15:00 Test Item Value Reference Range Interpretation Comments Hep B Core IgM (test Negative *NA*(02/05/19 code = Hep B Core 4:15 AM) IgM) [facility]BjtdnakESAMVWEKPF8515-43-33 10:15:00 Test Item Value Reference Range Interpretation Comments Hep C Ab (test code = Negative *NA*(02/05/19 Hep C Ab) 4:15 AM) [facility] CenterTczxvpqBSMFWHJZLZ7030-65-90 10:15:00 Test Item Value Reference Range Interpretation Comments Hep A IgM (test code Negative *NA*(02/05/19 = Hep A IgM) 4:15 AM) [facility] HospitalPARATHYROID GXWDCLE8447-16-46 10:15:00 Test Item Value Reference Range Interpretation Comments Ca Ion WB (test code = Ca Ion WB) 0.96 1.05-1.25 [facility]PARATHYRO[facility] UIEMQMR9006-52-21 10:15:00 Test Item Value Reference Range Interpretation Comments Ca Norm WB (test code = Ca Norm WB) 0.97 1.05-1.25 [facility]annBACTERIAL - TBNTCJYH7848-44-31 22:20:00 Test Item Value Reference Range Interpretation Comments Strep pneumoniae Ag Negative (02/04/19 (test code = Strep 4:20 PM) pneumoniae Ag) [facility]annBACTERIAL - IKWOZVAO9207-43-92 22:20:00 Test Item Value Reference Range Interpretation Comments Source Strep (test code Urine *NA*(02/04/19 = Source Strep) 4:20 PM) [facility] CemifroRTTLYZVSMM0495-52-05 22:20:00 Test Item Value Reference Range Interpretation Comments HIV Ag/Ab 4th Gen Negative *NA*(02/04/19 (test code = HIV 4:20 PM) Ag/Ab 4th Gen) [facility]annLALECULAR XODWQMOBYH0412-98-70 22:20:00 Test Item Value Reference Range Interpretation Comments Source Respiratory Nasophrngl Swb Panel PCR (test code = *NA*(02/04/19 4:20 PM) Source Respiratory Panel PCR) [facility]annLALECULAR WTYKAIKBPD5695-11-16 22:20:00 Test Item Value Reference Range Interpretation Comments Influenza A PCR (test Negative *NA*(02/04/19 code = Influenza A PCR) 4:20 PM) [facility] [id number] 22:20:00 Test Item Value Reference Range Interpretation Comments Influenza B PCR (test Negative *NA*(02/04/19 code = Influenza B PCR) 4:20 PM) [facility] [id number] 22:20:00 Test Item Value Reference Range Interpretation Comments RSV PCR (test code = Negative *NA*(02/04/19 RSV PCR) 4:20 PM) [facility] [id number] 22:20:00 Test Item Value Reference Range Interpretation Comments Source Parainfluenza Nasophrngl Swb (test code = Source *NA*(02/04/19 4:20 Parainfluenza) PM) [facility] [id number] 22:20:00 Test Item Value Reference Range Interpretation Comments Parainfluenza type 1 Negative (test code = *NA*(02/04/19 4:20 Parainfluenza type 1) PM) [facility] [id number] 22:20:00 Test Item Value Reference Range Interpretation Comments Parainfluenza type 2 Negative (test code = *NA*(02/04/19 4:20 Parainfluenza type 2) PM) [facility] [id number] 22:20:00 Test Item Value Reference Range Interpretation Comments Parainfluenza type 3 Negative (test code = *NA*(02/04/19 4:20 Parainfluenza type 3) PM) [facility] [id number] 22:20:00 Test Item Value Reference Range Interpretation Comments Parainfluenza type 4 Negative (test code = *NA*(02/04/19 4:20 Parainfluenza type 4) PM) [facility] [id number] 22:14:00 Test Item Value Reference Range Interpretation Comments Source Strep (test code Cerebral Spinal Fluid = Source Strep) [facility] [id number] 22:14:00 Test Item Value Reference Range Interpretation Comments Strep pneumoniae Ag Negative (02/04/19 (test code = Strep 4:14 PM) pneumoniae Ag) [facility] [id number] 22:14:00 Test Item Value Reference Range Interpretation Comments Tube Num CSF (test code = Tube Num CSF) [address] [facility] [id number] 22:14:00 Test Item Value Reference Range Interpretation Comments Color CSF (test code Colorless (02/04/19 4:14 = Color CSF) PM) [facility] [id number] 22:14:00 Test Item Value Reference Range Interpretation Comments Clarity CSF (test code = Clear (02/04/19 4:14 Clarity CSF) PM) [facility] [id number] 22:14:00 Test Item Value Reference Range Interpretation Comments Supernat CSF (test Colorless (02/04/19 code = Supernat CSF) 4:14 PM) [facility] [id number] 22:14:00 Test Item Value Reference Range Interpretation Comments Nucleated Cells CSF 1 See_Comment [Automa yanely message] The (test code = Nucleated syste m which generated Cells CSF) this result tra nsmitted reference range : <=53. The reference r matthieu was not used to int erpret this result as normal/abnormal . [facility] [id number] 22:14:00 Test Item Value Reference Range Interpretation Comments RBC CSF (test code = 53 See_Comment [Autom ated message] The RBC CSF) system which ge nerated this result transmit yanely reference range : <=03. The reference range was not used to interpr et this result as brielle l/abnormal. [facility] [id number] 22:14:00 Test Item Value Reference Range Interpretation Comments Glucose CSF (test code = Glucose CSF) 105 45-80 [facility] [id number] 22:14:00 Test Item Value Reference Range Interpretation Comments Protein CSF (test code = Protein CSF) 56 15-45 [facility]2019-11-19 22:14:00 Test Item Value Reference Range Interpretation Comments Tube Num CSF (test code = Tube Num CSF) 4 1 [facility]2019-11-19 22:14:00 Test Item Value Reference Range Interpretation Comments Color CSF (test code Colorless (02/04/19 4:14 = Color CSF) PM) [facility]2019-11-19 22:14:00 Test Item Value Reference Range Interpretation Comments Clarity CSF (test code = Clear (02/04/19 4:14 Clarity CSF) PM) [facility]2019-11-19 22:14:00 Test Item Value Reference Range Interpretation Comments Supernat CSF (test Colorless (02/04/19 code = Supernat CSF) 4:14 PM) [facility]2019-11-19 22:14:00 Test Item Value Reference Range Interpretation Comments Nucleated Cells CSF 1 See_Comment [Automa yanely message] The (test code = Nucleated syste m which generated Cells CSF) this result tra nsmitted reference range : <=53. The reference r matthieu was not used to int erpret this result as normal/abnormal . [facility] [id number] 22:14:00 Test Item Value Reference Range Interpretation Comments RBC CSF (test code = 4 See_Comment [Autom ated message] The RBC CSF) system which ge nerated this result transmit yanely reference range : <=03. The reference range was not used to interpr et this result as brielle l/abnormal. [facility] [id number] 22:14:00 Test Item Value Reference Range Interpretation Comments Lactic Acid CSF (test code = Lactic 2.3 0.6-2.2 Acid CSF) [facility] - [id number] 22:14:00 Test Item Value Reference Range Interpretation Comments Crypto Ag CSF (test Negative (02/04/19 4:14 code = Crypto Ag CSF) PM) [facility] Cent[id number] 22:14:00 Test Item Value Reference Range Interpretation Comments VDRL Scr CSF (test Non Reactive (02/04/19 code = VDRL Scr CSF) 4:14 PM) [facility] [id number] 22:14:00 Test Item Value Reference Range Interpretation Comments Source HSV (test code = Cerebral Spinal Fluid Source HSV) [facility] [id number] 22:14:00 Test Item Value Reference Range Interpretation Comments HSV 1 by PCR (test Negative (02/04/19 4:14 code = HSV 1 by PCR) PM) [facility] [id number] 22:14:00 Test Item Value Reference Range Interpretation Comments HSV 2 by PCR (test Negative (02/04/19 4:14 code = HSV 2 by PCR) PM) [facility] [id number] 22:14:00 Test Item Value Reference Range Interpretation Comments Source VZV (test code = Cerebral Spinal Fluid Source VZV) [facility] [id number] 22:14:00 Test Item Value Reference Range Interpretation Comments VZV PCR (test code = Negative (02/04/19 4:14 VZV PCR) PM) [facility]annVIRAL - [id number] 22:14:00 Test Item Value Reference Range Interpretation Comments Enterovirus PCR CSF Negative (02/04/19 (test code = Enterovirus 4:14 PM) PCR CSF) [facility]annG[facility] Stain [id number] 22:14:00 Test Item Value Reference Range Interpretation Comments Gram Stain Report Rare WBC's No Organisms (test code = Gram Seen Stain Report) [facility] w/Gram [id number] 22:14:00 Test Item Value Reference Range Interpretation Comments Culture: CSF w/Gram Stain (test No Growth code = Culture: CSF w/Gram Stain) [facility] [id number] 19:22:00 Test Item Value Reference Range Interpretation Comments PTT (test code = PTT) 26.9 s 22.9-35.8 [facility] [id number] 18:26:00 Test Item Value Reference Range Interpretation Comments Troponin-I (test code no gt See_Comment [Auto mated message] The = Troponin-I) system which g enerated this result transmit yanely reference range : <=0.40. The reference r matthieu was not used to interpr et this result as brielle l/abnormal. [facility] AND [id number] 18:26:00 Test Item Value Reference Range Interpretation Comments UA Turbidity (test code = Clear (02/04/19 UA Turbidity) 12:26 PM) [facility] AND [id number] 18:26:00 Test Item Value Reference Range Interpretation Comments UA Spec Grav (test code = UA Spec 1.030 1 Grav) [facility] AND [id number] 18:26:00 Test Item Value Reference Range Interpretation Comments UA pH (test code = UA pH) 5.0 1 5.0-8.0 [facility] AND [id number] 18:26:00 Test Item Value Reference Range Interpretation Comments UA Protein (test code = UA Negative mg/dL Protein) [facility] AND [id number] 18:26:00 Test Item Value Reference Range Interpretation Comments UA Glucose (test code = UA Negative mg/dL Glucose) [facility] AND [id number] 18:26:00 Test Item Value Reference Range Interpretation Comments UA Ketones (test code = UA Trace mg/dL Ketones) [facility] AND [id number] 18:26:00 Test Item Value Reference Range Interpretation Comments UA Bili (test code = Negative *NA*(02/04/19 UA Bili) 12:26 PM) [facility] AND [id number] 18:26:00 Test Item Value Reference Range Interpretation Comments UA Blood (test code = Moderate *ABN*(02/04/19 UA Blood) 12:26 PM) [facility] [id number] 18:26:00 Test Item Value Reference Range Interpretation Comments UA Nitrite (test code Negative (02/04/19 = UA Nitrite) 12:26 PM) [facility] [id number] 18:26:00 Test Item Value Reference Range Interpretation Comments UA Leuk Est (test Negative (02/04/19 12:26 code = UA Leuk Est) PM) [facility] [id number] 18:26:00 Test Item Value Reference Range Interpretation Comments UA Sq Epi (test code = UA Sq Occasional /LPF Epi) [facility] [id number] 18:26:00 Test Item Value Reference Range Interpretation Comments UA WBC (test code = 1 See_Comment [Automa yanely message] The UA WBC) system which ge nerated this result transmit yanely reference range : <=5. The reference range was not used to interpr et this result as brielle l/abnormal. [facility] [id number] 18:26:00 Test Item Value Reference Range Interpretation Comments UA RBC (test code = 2 See_Comment [Automa yanely message] The UA RBC) system which ge nerated this result transmit yanely reference range : <=2. The reference range was not used to interpr et this result as brielle l/abnormal. [facility] [id number] 18:26:00 Test Item Value Reference Range Interpretation Comments UA Bacteria (test code = UA Occasional /HPF Bacteria) [facility] [id number] 18:26:00 Test Item Value Reference Range Interpretation Comments UA Mucus (test code = UA Mucus) Few /LPF [facility] [id number] 18:26:00 Test Item Value Reference Range Interpretation Comments UA Color (test code = UA Color) Ltyellow [facility] [id number] 18:26:00 Test Item Value Reference Range Interpretation Comments UA Urobilinogen (test code = UA no gt 0.1-1.0 Urobilinogen) [facility] [id number] 12:40:00 Test Item Value Reference Range Interpretation Comments Troponin-I (test code no gt See_Comment [Auto mated message] The = Troponin-I) system which g enerated this result transmit yanely reference range : <=0.40. The reference r matthieu was not used to interpr et this result as brielle l/abnormal. [facility]2019-11-19 12:40:00 Test Item Value Reference Range Interpretation Comments Lactic Acid Lvl (test code = Lactic 1.8 0.5-2.2 Acid Lvl) [facility]BACT[facility] - [id number] 09:08:00 Test Item Value Reference Range Interpretation Comments MRSA by PCR (test Positive 2*ABN*(02/04/19 code = MRSA by PCR) 3:08 AM) [facility]2019-11-19 09:08:00 Test Item Value Reference Range Interpretation Comments Ammonia (test code = Ammonia) 30.0 [facility]2019-11-19 09:08:00 Test Item Value Reference Range Interpretation Comments Lactic Acid Lvl (test code = Lactic 2.5 0.5-2.2 Acid Lvl) [facility]2019-11-19 09:08:00 Test Item Value Reference Range Interpretation Comments Procalcitonin Lvl (test 0.25 See_Comment [Au tomated message] code = Procalcitonin Lvl) Th e system which generated this result transmitted ref erence range: <=0.10. The reference range was not used to interpr et this result as normal/abnormal . [facility]2019-11-19 09:08:00 Test Item Value Reference Range Interpretation Comments Bili Direct (test code no gt See_Comment [Aut omated message] The = Bili Direct) system which generated this result tra nsmitted reference range : <=0.3. The reference r matthieu was not used to int erpret this result as brielle l/abnormal. [facility] H[id number] 09:08:00 Test Item Value Reference Range Interpretation Comments INR (test code = INR) 1.06 1 0.85-1.17 [facility] HospitalUecbvzpQAFTLBKMKB8896-94-90 09:08:00 Test Item Value Reference Range Interpretation Comments PT (test code = PT) 13.6 s 12.0-14.7 [facility] HospitalDnuyisxXZOOKCEHRK4549-40-63 09:08:00 Test Item Value Reference Range Interpretation Comments PTT (test code = PTT) 35.4 s 22.9-35.8 [facility] HospitalStlfnppDAWDXONWMP5344-55-82 09:08:00 Test Item Value Reference Range Interpretation Comments Plt Morph (test code = Normal (02/04/19 3:08 Plt Morph) AM) [facility] HospitalOkqjsaiVVEOPX6024-24-86 09:08:00 Test Item Value Reference Range Interpretation Comments CHD Risk (test code = CHD Risk) 6.38 1 4.00-7.30 [facility] HospitalEblydawTQLBDA6029-31-46 09:08:00 Test Item Value Reference Range Interpretation Comments Trig (test code = Trig) 169 [facility]AtnznbaJLMRPU9545-85-50 09:08:00 Test Item Value Reference Range Interpretation Comments Chol (test code = Chol) 217 [facility] HospitalWthqoofKRNFKD8786-03-03 09:08:00 Test Item Value Reference Range Interpretation Comments HDL (test code = HDL) 34 [facility] HospitalDtdmkmuPLMFZR5394-81-21 09:08:00 Test Item Value Reference Range Interpretation Comments LDL (Calculated) (test code = LDL 149 (Calculated)) [facility] HospitalBkhhljdHJQTOF4485-58-41 09:08:00 Test Item Value Reference Range Interpretation Comments VLDL (test code = VLDL) 34 1 [facility] [id number] 09:08:00 Test Item Value Reference Range Interpretation Comments Hgb A1C (test code = Hgb A1C) 7.3 [facility]UbttcgiGCNLVVDUAYSM9740-01-03 06:21:00 Test Item Value Reference Range Interpretation Comments Chloride Lvl (test code = Chloride Lvl) 105 95-109 [facility] HospitalJvmlakbBBGQDGWHIWQO1861-69-85 06:21:00 Test Item Value Reference Range Interpretation Comments Sodium Lvl (test code = Sodium Lvl) 143 135-145 [facility] HospitalQcyrdyaBQIONMFDNJLR2298-76-22 06:21:00 Test Item Value Reference Range Interpretation Comments Potassium Lvl (test code = Potassium 4.0 3.5-5.1 Lvl) [facility] HospitalNfuaekgNCXINXDRAQVU6594-99-63 06:21:00 Test Item Value Reference Range Interpretation Comments Calcium Lvl (test code = Calcium Lvl) 8.9 8.5-10.5 [facility]WxfhakkYVEVUSVAYFQQ0747-31-28 06:21:00 Test Item Value Reference Range Interpretation Comments eGFR (test code = eGFR) 117 [facility] HospitalDzdrdcwSHMBFTIUDGIV2399-88-06 06:21:00 Test Item Value Reference Range Interpretation Comments Creatinine Lvl (test code = Creatinine 0.65 0.50-1.40 Lvl) [facility] HospitalTvcqqlcRJWUQUGJYJXO3008-96-18 06:21:00 Test Item Value Reference Range Interpretation Comments BUN (test code = BUN) 9 7-22 [facility] HospitalHsfqvfvMHAYJPPOHWHS7881-55-12 06:21:00 Test Item Value Reference Range Interpretation Comments Glucose Lvl (test code = Glucose Lvl) 138 70-99 [facility] HospitalFpwgvpsZHOLLKUIZJJI7049-36-75 06:21:00 Test Item Value Reference Range Interpretation Comments CO2 (test code = CO2) 29 24-32 [facility] HospitalDkmteayNBKRZMJZXLRP4882-53-60 06:21:00 Test Item Value Reference Range Interpretation Comments AGAP (test code = AGAP) 13.0 10.0-20.0 [facility] HospitalLthkvxtKRPIPFZISX7387-67-39 06:21:00 Test Item Value Reference Range Interpretation Comments RDW (test code = RDW) 18.4 11.5-14.5 [facility] HospitalTzaxfavUASUCZUVFJ8459-10-32 06:21:00 Test Item Value Reference Range Interpretation Comments MCHC (test code = MCHC) 31.9 32.0-36.0 [facility] HospitalJmbighiZYRZFKLUAV8972-33-11 06:21:00 Test Item Value Reference Range Interpretation Comments MCH (test code = MCH) 24.2 pg 27.0-31.0 [facility] HospitalLecxiawPJFDPPIACE5656-55-26 06:21:00 Test Item Value Reference Range Interpretation Comments MCV (test code = MCV) 75.8 80.0-94.0 [facility] HospitalFujndytFZITCJBWQV9109-46-48 06:21:00 Test Item Value Reference Range Interpretation Comments Hct (test code = Hct) 42.3 42.0-54.0 [facility] HospitalFkecgqkUYSSGNPNJA6213-63-19 06:21:00 Test Item Value Reference Range Interpretation Comments Hgb (test code = Hgb) 13.5 14.0-18.0 [facility] HospitalRhhlefcAKSGENYLYL0073-14-55 06:21:00 Test Item Value Reference Range Interpretation Comments RBC (test code = RBC) 5.58 4.70-6.10 [facility] HospitalLswasniMKKSOHENHQ4935-92-40 06:21:00 Test Item Value Reference Range Interpretation Comments WBC (test code = WBC) 11.3 3.7-10.4 [facility] HospitalRqdeexoIMWLXYWCZE2861-95-86 06:21:00 Test Item Value Reference Range Interpretation Comments Platelet (test code = Platelet) 301 133-450 [facility] HospitalOccxhpkMLTXLBYTCB4989-89-91 06:21:00 Test Item Value Reference Range Interpretation Comments MPV (test code = MPV) 8.5 7.4-10.4 [facility] HospitalQpdhptvDPIIAUYEJW0770-40-80 06:21:00 Test Item Value Reference Range Interpretation Comments Eosinophils # (test code 0.3 See_Comment [A utomated message] The = Eosinophils #) system whic h generated this result tra nsmitted reference range : <=0.5. The reference r matthieu was not used to int erpret this result as normal/abnormal . [facility] HospitalBwpafmoGGCYDXLDMD4886-42-81 06:21:00 Test Item Value Reference Range Interpretation Comments Basophils # (test code 0.1 See_Comment [Aut omated message] The = Basophils #) system which generated this result tra nsmitted reference range : <=0.2. The reference r matthieu was not used to int erpret this result as normal/abnormal . [facility] HospitalEgtogkvWBTBCFMGTA7037-33-13 06:21:00 Test Item Value Reference Range Interpretation Comments Microcyte (test code = 1+ *ABN*(09/24/18 1:21 Microcyte) AM) [facility] HospitalQeqvbtuZEIESITOQZ5029-33-43 06:21:00 Test Item Value Reference Range Interpretation Comments Monocytes # (test code 1.2 See_Comment [Aut omated message] The = Monocytes #) system which generated this result tra nsmitted reference range : <=0.8. The reference r matthieu was not used to int erpret this result as normal/abnormal . [facility] HospitalGimlgwyPCGMHFCYII5560-13-73 06:21:00 Test Item Value Reference Range Interpretation Comments Eosinophils (test code = 2.9 See_Comment [A utomated message] The Eosinophils) system which ge nerated this result tra nsmitted reference range : <=4.0. The reference r matthieu was not used to int erpret this result as normal/abnormal . [facility] HospitalFqcchzkADHTGJCRPL9706-37-45 06:21:00 Test Item Value Reference Range Interpretation Comments Basophils (test code = 0.6 See_Comment [Aut omated message] The Basophils) system which ge nerated this result tra nsmitted reference range : <=1.0. The reference r matthieu was not used to int erpret this result as normal/abnormal . [facility] HospitalFxpyvpwCWGRAREDTR9063-81-85 06:21:00 Test Item Value Reference Range Interpretation Comments Neutrophils # (test code = Neutrophils 7.3 1.5-8.1 #) [facility] HospitalJfcopvhABCZMANTBQ5234-38-69 06:21:00 Test Item Value Reference Range Interpretation Comments Lymphocytes # (test code = Lymphocytes 2.3 1.0-5.5 #) [facility] HospitalYwljpnxUBIIKZRFBM1130-97-33 06:21:00 Test Item Value Reference Range Interpretation Comments Monocytes (test code = Monocytes) 10.7 2.0-12.0 [facility] HospitalRnvgnuiKUNXUADCRS0443-84-54 06:21:00 Test Item Value Reference Range Interpretation Comments Lymphocytes (test code = Lymphocytes) 20.6 20.0-40.0 [facility] HospitalVsdrpsmSDWRRWPEKG7790-35-55 06:21:00 Test Item Value Reference Range Interpretation Comments Segs (test code = Segs) 65.2 45.0-75.0 [facility] HospitalOtmnereULQWWO4723-58-49 06:21:00 Test Item Value Reference Range Interpretation Comments CHD Risk (test code = CHD Risk) 4.53 1 4.00-7.30 [facility] HospitalTnjmflgJUACFU2196-83-16 06:21:00 Test Item Value Reference Range Interpretation Comments Chol (test code = Chol) 154 [facility] HospitalLlwwyjrEUCQIW3698-54-83 06:21:00 Test Item Value Reference Range Interpretation Comments Trig (test code = Trig) 190 [facility]OkghlmkARRVJG9728-33-50 06:21:00 Test Item Value Reference Range Interpretation Comments VLDL (test code = VLDL) 38 1 [facility] CenterCjxwhhrITKNYP7873-73-08 06:21:00 Test Item Value Reference Range Interpretation Comments HDL (test code = HDL) 34 [facility] HospitalAoihtkfFPPMMR9916-37-18 06:21:00 Test Item Value Reference Range Interpretation Comments LDL (Calculated) (test code = LDL 82 (Calculated)) [facility] ELSMBVNMH9760-18-41 06:21:00 Test Item Value Reference Range Interpretation Comments Hgb A1C (test code = Hgb A1C) 6.6 [facility]2019-07-09 06:16:00 Test Item Value Reference Range Interpretation Comments ALT (test code = ALT) 27 See_Comment [Auto mated message] The system which ge nerated this result transmit yanely reference range : <=65. The reference range was not used to interpr et this result as brielle l/abnormal. [facility]2019-07-09 06:16:00 Test Item Value Reference Range Interpretation Comments AST (test code = AST) 13 See_Comment [Auto mated message] The system which ge nerated this result transmit yanely reference range : <=37. The reference range was not used to interpr et this result as brielle l/abnormal. [facility]2019-07-09 06:16:00 Test Item Value Reference Range Interpretation Comments Bili Direct (test code 0.1 See_Comment [Aut omated message] The = Bili Direct) system which generated this result tra nsmitted reference range : <=0.3. The reference r matthieu was not used to int erpret this result as brielle l/abnormal. [facility]2019-07-09 06:16:00 Test Item Value Reference Range Interpretation Comments Total Protein (test code = Total 7.5 6.4-8.4 Protein) [facility]2019-07-09 06:16:00 Test Item Value Reference Range Interpretation Comments Globulin (test code = Globulin) 4.2 2.7-4.2 [facility]2019-07-09 06:16:00 Test Item Value Reference Range Interpretation Comments A/G Ratio (test code = A/G Ratio) 0.8 1 0.7-1.6 [facility]2019-07-09 06:16:00 Test Item Value Reference Range Interpretation Comments Albumin Lvl (test code = Albumin Lvl) 3.3 3.5-5.0 [facility]2019-07-09 06:16:00 Test Item Value Reference Range Interpretation Comments Alk Phos (test code = Alk Phos) 98 39-136 [place] 529739-07-09 06:16:00 Test Item Value Reference Range Interpretation Comments Bili Total (test code = Bili Total) 1.0 0.2-1.3 [facility] HospitalSarnova [id number] 06:16:00 Test Item Value Reference Range Interpretation Comments Bili Indirect (test 0.9 See_Comment [Automa yanely message] The code = Bili Indirect) system which generated this result tra nsmitted reference range : <=1.0. The reference r matthieu was not used to int erpret this result as normal/abnormal . [facility] [id number] 06:15:00 Test Item Value Reference Range Interpretation Comments PTT (test code = PTT) 32.1 s 22.9-35.8 [facility] [id number] 06:15:00 Test Item Value Reference Range Interpretation Comments INR (test code = INR) 0.98 1 0.85-1.17 [facility] [id number] 06:15:00 Test Item Value Reference Range Interpretation Comments PT (test code = PT) 12.8 s 12.0-14.7 [facility] [id number] 05:50:00 Test Item Value Reference Range Interpretation Comments UA Ketones (test code = UA Ketones) Negative [facility] AND [id number] 05:50:00 Test Item Value Reference Range Interpretation Comments UA Urobilinogen (test code = UA <=1.0 mg/dL 0.1-1.0 Urobilinogen) [facility] AND [id number] 05:50:00 Test Item Value Reference Range Interpretation Comments UA Sq Epi (test code = UA Sq Epi) None Seen [facility] AND [id number] 05:50:00 Test Item Value Reference Range Interpretation Comments UA RBC (test code = 1 See_Comment [Automa yanely message] The UA RBC) system which ge nerated this result transmit yanely reference range : <=2. The reference range was not used to interpr et this result as brielle l/abnormal. [facility] AND [id number] 05:50:00 Test Item Value Reference Range Interpretation Comments UA WBC (test code = 1 See_Comment [Automa yanely message] The UA WBC) system which ge nerated this result transmit yanely reference range : <=5. The reference range was not used to interpr et this result as brielle l/abnormal. [facility] AND [id number] 05:50:00 Test Item Value Reference Range Interpretation Comments UA Color (test code = Light Yellow UA Color) *NA*(09/24/18 12:50 AM) [facility] [id number] 05:50:00 Test Item Value Reference Range Interpretation Comments UA Spec Grav (test code = UA Spec 1.019 1 Grav) [facility] AND [id number] 05:50:00 Test Item Value Reference Range Interpretation Comments UA Protein (test code = UA Negative mg/dL Protein) [facility] AND [id number] 05:50:00 Test Item Value Reference Range Interpretation Comments UA pH (test code = UA pH) 8.0 1 5.0-8.0 [facility] [id number] 05:50:00 Test Item Value Reference Range Interpretation Comments UA Amorph Danyelle (test code = Occasional /HPF UA Amorph Danyelle) [facility] AND [id number] 05:50:00 Test Item Value Reference Range Interpretation Comments UA Bili (test code = Negative *NA*(09/24/18 UA Bili) 12:50 AM) [facility] AND [id number] 05:50:00 Test Item Value Reference Range Interpretation Comments UA Blood (test code = Negative (09/24/18 12:50 UA Blood) AM) [facility] AND [id number] 05:50:00 Test Item Value Reference Range Interpretation Comments UA Glucose (test code = UA Negative mg/dL Glucose) [facility] AND [id number] 05:50:00 Test Item Value Reference Range Interpretation Comments UA Leuk Est (test Negative (09/24/18 12:50 code = UA Leuk Est) AM) [facility] AND [id number] 05:50:00 Test Item Value Reference Range Interpretation Comments UA Nitrite (test code Negative (09/24/18 12:50 = UA Nitrite) AM) [facility] AND [id number] 05:50:00 Test Item Value Reference Range Interpretation Comments UA Turbidity (test code = Clear (09/24/18 12:50 UA Turbidity) AM) [facility] [id number] 06:57:00 Test Item Value Reference Range Interpretation Comments POC-GLUCOSE METER 117 mg/dL 70-110 H TESTED AT [place] [address] ([facility]) (test code = DELVIN Benson [facility] 1538) [address] POCT-GLUCOSE [id number] 16:25:00 Test Item Value Reference Range Interpretation Comments POC-GLUCOSE METER 88 mg/dL 70-110 TESTED AT [place] [address] ([facility]) (test code = DELVIN Benson [facility] [address] 1538) POCT-GLUCOSE [id number] 06:12:00 Test Item Value Reference Range Interpretation Comments POC-GLUCOSE METER 91 mg/dL 70-110 TESTED AT [place] [address] ([facility]) (test code = DELVIN Benson [facility] [address] 1538) POCT-GLUCOSE [id number] 16:29:00 Test Item Value Reference Range Interpretation Comments POC-GLUCOSE METER 94 mg/dL 70-110 TESTED AT [place] [address] ([facility]) (test code = DELVIN Benson [facility] [address] 1538) POCT-GLUCOSE [id number] 06:27:00 Test Item Value Reference Range Interpretation Comments POC-GLUCOSE METER 90 mg/dL 70-110 TESTED AT [place] [address] ([facility]) (test code = DELVIN Benson [facility] [address] 1538) POCT-GLUCOSE [id number] 16:45:00 Test Item Value Reference Range Interpretation Comments POC-GLUCOSE METER 88 mg/dL 70-110 TESTED AT [place] [address] ([facility]) (test code = DELVIN Benson [facility] [address] 1538) POCT-GLUCOSE [id number] 12:04:00 Test Item Value Reference Range Interpretation Comments POC-GLUCOSE METER 73 mg/dL 70-110 TESTED AT [place] [address] ([facility]) (test code = DELVIN Benson [facility] [address] 1538) POCT-GLUCOSE [id number] 06:53:00 Test Item Value Reference Range Interpretation Comments POC-GLUCOSE METER 112 mg/dL 70-110 H TESTED AT [place] [address] ([facility]) (test code = DELVIN Benson [facility] 1538) [address] POCT-GLUCOSE [id number] 17:08:00 Test Item Value Reference Range Interpretation Comments POC-GLUCOSE METER 96 mg/dL 70-110 TESTED AT [place] [address] ([facility]) (test code = DELVIN Benson [facility] [address] 1538) POCT-GLUCOSE [id number] 11:10:00 Test Item Value Reference Range Interpretation Comments POC-GLUCOSE METER 98 mg/dL 70-110 TESTED AT [facility] 6720 (BEAKER) (test code = [place] [address] 1538) BASIC METABOLIC [id number] 07:10:00 Test Item Value Reference Range Interpretation [...] PATIEN TS. CBC W/PLT COUNT & AUTO [id number] 06:30:00 Test Item Value Reference Range Interpretation [...] PERCENT (BEAKER) (test code = 2801) POCT-GLUCOSE [id number] 06:11:00 Test Item Value Reference Range Interpretation Comments POC-GLUCOSE METER 110 mg/dL 70-110 TESTED AT [place] [address] [facility] (test code = DELVIN [place] 1538) [address] POCT-GLUCOSE [id number] 20:08:00 Test Item Value Reference Range Interpretation Comments POC-GLUCOSE METER 139 mg/dL 70-110 H TESTED AT [place] [address] ([facility] (test code = DELVIN [place] 1538) [address] POCT-GLUCOSE [id number] 16:17:00 Test Item Value Reference Range Interpretation Comments POC-GLUCOSE METER 96 mg/dL 70-110 TESTED AT [place] [address] ([facility]) (test code = DELVIN Benson [facility] [address] 1538) POCT-GLUCOSE [id number] 11:28:00 Test Item Value Reference Range Interpretation Comments POC-GLUCOSE METER 78 mg/dL 70-110 TESTED AT [place] [address] ([facility]) (test code = DELVIN Benson [facility] [address] 1538) POCT-GLUCOSE [id number] 06:24:00 Test Item Value Reference Range Interpretation Comments POC-GLUCOSE METER 94 mg/dL 70-110 TESTED AT [place] [address] ([facility]) (test code = DELVIN Benson [facility] [address] 1538) POCT-GLUCOSE [id number] 20:50:00 Test Item Value Reference Range Interpretation Comments POC-GLUCOSE METER 121 mg/dL 70-110 H TESTED AT [place] [address] ([facility]) (test code = DELVIN Benson [facility] 1538) [address] POCT-GLUCOSE [id number] 16:08:00 Test Item Value Reference Range Interpretation Comments POC-GLUCOSE METER 80 mg/dL 70-110 TESTED AT [place] [address] ([facility]) (test code = DELVIN Benson [facility] [address] 1538) POCT-GLUCOSE [id number] 11:19:00 Test Item Value Reference Range Interpretation Comments POC-GLUCOSE METER 143 mg/dL 70-110 H TESTED AT [place] [address] ([facility]) (test code = DELVIN Benson [facility] 1538) [address] POCT-GLUCOSE [id number] 06:44:00 Test Item Value Reference Range Interpretation Comments POC-GLUCOSE METER 101 mg/dL 70-110 TESTED AT [place] [address] ([facility]) (test code = DELVIN Benson [facility] 1538) [address] POCT-GLUCOSE [id number] 20:50:00 Test Item Value Reference Range Interpretation Comments POC-GLUCOSE METER 108 mg/dL 70-110 TESTED AT [place] [address] ([facility]) (test code = DELVIN Benson [facility] 1538) [address] POCT-GLUCOSE [id number] 17:05:00 Test Item Value Reference Range Interpretation Comments POC-GLUCOSE METER 74 mg/dL 70-110 TESTED AT [place] [address] ([facility]) (test code = DELVIN Benson [facility] [address] 1538) POCT-GLUCOSE [id number] 11:51:00 Test Item Value Reference Range Interpretation Comments POC-GLUCOSE METER 106 mg/dL 70-110 TESTED AT [place] [address] ([facility]) (test code = DELVIN Benson [place] 1538) [address] POCT-GLUCOSE [id number] 06:56:00 Test Item Value Reference Range Interpretation Comments POC-GLUCOSE METER 95 mg/dL 70-110 TESTED AT [place] [address] ([facility]) (test code = [place] [address] 1538) POCT-GLUCOSE [id number] 21:23:00 Test Item Value Reference Range Interpretation Comments POC-GLUCOSE METER 96 mg/dL 70-110 TESTED AT [place] [address] ([facility]) (test code = [place] [address] 1538) POCT-GLUCOSE [id number] 16:26:00 Test Item Value Reference Range Interpretation Comments POC-GLUCOSE METER 96 mg/dL 70-110 TESTED AT [place] [address] ([facility]) (test code = [place] [address] 1538) POCT-GLUCOSE [id number] 11:56:00 Test Item Value Reference Range Interpretation Comments POC-GLUCOSE METER 132 mg/dL 70-110 H TESTED AT [place] [address] ([facility]) (test code = DELVIN Benson [place] 1538) [address] POCT-GLUCOSE [id number] 06:35:00 Test Item Value Reference Range Interpretation Comments POC-GLUCOSE METER 97 mg/dL 70-110 TESTED AT [place] [address] ([facility]) (test code = [place] [address] 1538) POCT-GLUCOSE [id number] 21:10:00 Test Item Value Reference Range Interpretation Comments POC-GLUCOSE METER 121 mg/dL 70-110 H TESTED AT [place] [address] ([facility]) (test code = DELVIN Benson [place] 1538) [address] POCT-GLUCOSE [id number] 16:51:00 Test Item Value Reference Range Interpretation Comments POC-GLUCOSE METER 126 mg/dL 70-110 H TESTED AT [place] [address] ([facility]) (test code = DELVIN Benson [place] 1538) [address] POCT-GLUCOSE [id number] 11:20:00 Test Item Value Reference Range Interpretation Comments POC-GLUCOSE METER 109 mg/dL 70-110 TESTED AT [facility] 6720 (BEAKER) (test code = DELVIN Benson [place] 1538) [address] POCT-GLUCOSE [id number] 06:57:00 Test Item Value Reference Range Interpretation Comments POC-GLUCOSE METER 167 mg/dL 70-110 H TESTED AT [facility] 6720 (BEAKER) (test code = DELVIN Benson [place] 1538) [address] PROTHROMBIN [id number] 06:49:00 Test Item Value Reference Range Interpretation Comments PROTIME (BEAKER) (test code = 12.5 seconds 11.9-14.2 759) INR (BEAKER) (test code = 370) 1.0 <=5.9 RECOMMENDED COUMADIN/WARFARIN INR THERAPY RANGESSTANDARD DOSE: 2.0 - 3.0 Includes: PROPHYLAXIS for venous thrombosis, systemic embolization; TREATMENT for venous thrombosis and/or pulmonary embolus.HIGH RISK: Target INR is 2.5-3.5 for patients with mechanical heart valves.BASIC METABOLIC [id number] 06:49:00 Test Item Value Reference Range Interpretation [...] PATIEN TS. CBC W/PLT COUNT & AUTO [id number] 06:33:00 Test Item Value Reference Range Interpretation [...] PERCENT (BEAKER) (test code = 2801) POCT-GLUCOSE [id number] 21:27:00 Test Item Value Reference Range Interpretation Comments POC-GLUCOSE METER 129 mg/dL 70-110 H TESTED AT [place] [address] (BEAKER) (test code = DELVIN Benson [facility] 1538) [address] POCT-GLUCOSE [id number] 17:18:00 Test Item Value Reference Range Interpretation Comments POC-GLUCOSE METER 108 mg/dL 70-110 TESTED AT [place] [address] (BEAKER) (test code = DELVIN Benson [facility] 1538) [address] POCT-GLUCOSE [id number] 11:54:00 Test Item Value Reference Range Interpretation Comments POC-GLUCOSE METER 107 mg/dL 70-110 TESTED AT [place] [address] ([facility] (test code = DELVIN Benson [facility] 1538) [address] POCT-GLUCOSE [id number] 11:54:00 Test Item Value Reference Range Interpretation Comments POC-GLUCOSE METER 63 mg/dL 70-110 L Will Repea t Test/TESTED (BEAKER) (test code = AT [address] 1538) [facility] 7[address] 0 POCT-GLUCOSE [id number] 20:58:00 Test Item Value Reference Range Interpretation Comments POC-GLUCOSE METER 97 mg/dL 70-110 TESTED AT [place] [address] ([facility] (test code = DELVIN Benson [facility] [address] 1538) POCT-GLUCOSE [id number] 13:08:00 Test Item Value Reference Range Interpretation Comments POC-GLUCOSE METER 110 mg/dL 70-110 TESTED AT [place] [address] (BEAKER) (test code = DELVIN Benson [facility] 1538) [address] [id number] 07:12:00 Test Item Value Reference Range Interpretation Comments MAGNESIUM (BEAKER) (test code = 2.2 mg/dL 1.6-2.6 627) BASIC METABOLIC [id number] 07:12:00 Test Item Value Reference Range Interpretation [...] PATIEN TS. CBC W/PLT COUNT & AUTO [id number] 06:50:00 Test Item Value Reference Range Interpretation [...] (BEAKER) (test code = 2801) RAD, SHUNT [id number] 16:15:00Reason for exam:->Hydrocephalus on CT FINAL REPORT [...] MDReport Verified Date/Time: 08/10/2018 16:15:10 Reading Location: [facility] C013Y CT Body Reading Room [id number] 06:49:00 Test Item Value Reference Range Interpretation Comments MAGNESIUM (BEAKER) (test code = 2.0 mg/dL 1.6-2.6 627) BASIC METABOLIC [id number] 06:49:00 Test Item Value Reference Range Interpretation [...] PATIEN TS. CBC W/PLT COUNT & AUTO [id number] 06:17:00 Test Item Value Reference Range Interpretation [...] PERCENT (BEAKER) (test code = 2801) POCT-GLUCOSE [id number] 18:47:00 Test Item Value Reference Range Interpretation Comments POC-GLUCOSE METER 86 mg/dL 70-110 TESTED AT [place] [address] ([facility]) (test code = [facility] [address] 1538) [id number] 13:23:00 Test Item Value Reference Range Interpretation Comments RPR SCREEN ([facility]) (test code = Nonreactive Nonreactive 420) POCT-GLUCOSE [id number] 12:36:00 Test Item Value Reference Range Interpretation Comments POC-GLUCOSE METER 101 mg/dL 70-110 TESTED AT [place] [address] ([facility]) (test code = [facility] 1538) [address] MR, BRAIN, WITHOUT [id number] 12:20:00Reason for exam:->StrokeWhat is the patient's sedation [...] MDReport Verified Date/Time: 08/09/2018 12:20:16 Reading Location: [facility] C013V Neuro Reading Room TSH/FREE T4 IF [id number] 09:53:00 Test Item Value Reference Range Interpretation Comments THYROID STIMULATING HORMONE 1.28 uIU/mL 0.35-4.94 ([facility]) (test code = 772) POCT-GLUCOSE [id number] 08:34:00 Test Item Value Reference Range Interpretation Comments POC-GLUCOSE METER 99 mg/dL 70-110 TESTED AT [facility] 67[address] ([facility]) (test code = DELVIN Benson [facility] [address] 1538) BASIC METABOLIC [id number] 06:09:00 Test Item Value Reference Range Interpretation [...] S NOT APPLICABLE FOR DIALYSIS PATIEN TS. [id number] 06:05:00 Test Item Value Reference Range Interpretation Comments MAGNESIUM (BEAKER) 2.0 mg/dL 1.6-2.6 Specimen slightly (test code = 627) hemolyzed FastingLIPID [id number] 06:05:00 Test Item Value Reference Range Interpretation [...] High >=190 FastingCBC W/PLT COUNT & AUTO [id number] 05:51:00 Test Item Value Reference Range Interpretation [...] PERCENT (BEAKER) (test code = 2801) POCT-GLUCOSE [id number] 21:49:00 Test Item Value Reference Range Interpretation Comments POC-GLUCOSE METER 92 mg/dL 70-110 TESTED AT [facility] 67[address] (BEAKER) (test code = [place] [address] 1538) HEMOGLOBIN [id number] 21:38:00 Test Item Value Reference Range Interpretation Comments HEMOGLOBIN A1C (BEAKER) (test code = 6.3 % 4.3-6.1 H 368) VITAMIN B12 AND [id number] 19:26:00 Test Item Value Reference Range Interpretation Comments VITAMIN B12 (BEAKER) (test code = 306 pg/mL 213-816 774) FOLATE (BEAKER) (test code = 362) 14.3 ng/mL >=7.0 TROPONIN [id number] 18:58:00 Test Item Value Reference Range Interpretation [...] acute neurological disease, and persistent tachyarrhythmia.BASIC METABOLIC [id number] 18:53:00 Test Item Value Reference Range Interpretation [...] APPLICABLE FOR DIALYSIS PATIEN TS. HEPATIC FUNCTION [id number] 18:51:00 Test Item Value Reference Range Interpretation [...] code = 35 U/L 6-55 347) PROTHROMBIN [id number] 18:46:00 Test Item Value Reference Range Interpretation [...] mechanical heart valves.CBC W/PLT COUNT & AUTO [id number] 18:39:00 Test Item Value Reference Range Interpretation [...] % 0-1 PERCENT (BEAKER) (test code = 0103) POCT-GLUCOSE [id number] 18:04:00 Test Item Value Reference Range Interpretation Comments POC-GLUCOSE METER 125 mg/dL 70-110 H TESTED AT [facility] 6720 (BEAKER) (test code = DELVIN [place] 1538) [address] CHEM [id number] 09:08:00 Test Item Value Reference Range Interpretation Comments Phosphorus (test code = Phosphorus) 3.8 2.5-4.5 [facility] [place] [id number] 09:08:00 Test Item Value Reference Range Interpretation Comments Lactic Acid Lvl (test code = Lactic 0.8 0.5-2.2 Acid Lvl) [facility] [place] [id number] 09:08:00 Test Item Value Reference Range Interpretation Comments Globulin (test code = Globulin) 4.7 2.7-4.2 [facility] [place] [id number] 09:08:00 Test Item Value Reference Range Interpretation Comments AGAP (test code = AGAP) 8.3 10.0-20.0 [place] [id number] 09:08:00 Test Item Value Reference Range Interpretation Comments B/C Ratio (test code = B/C Ratio) 18 1 6-25 [place] [id number] 09:08:00 Test Item Value Reference Range Interpretation Comments A/G Ratio (test code = A/G Ratio) 0.7 1 0.7-1.6 [place] [id number] 09:08:00 Test Item Value Reference Range Interpretation Comments eGFR (test code = eGFR) 119 [facility]2019-05-19 09:08:00 Test Item Value Reference Range Interpretation Comments Chloride Lvl (test code = Chloride Lvl) 108 95-109 [place] [id number] 09:08:00 Test Item Value Reference Range Interpretation Comments Total Protein (test code = Total 8.0 6.4-8.4 Protein) [facility]2019-05-19 09:08:00 Test Item Value Reference Range Interpretation Comments CO2 (test code = CO2) 28 24-32 [place] [id number] 09:08:00 Test Item Value Reference Range Interpretation Comments Calcium Lvl (test code = Calcium Lvl) 8.3 8.5-10.5 [place] [id number] 09:08:00 Test Item Value Reference Range Interpretation Comments Bili Total (test code = Bili Total) 0.5 0.2-1.3 [facility]2019-05-19 09:08:00 Test Item Value Reference Range Interpretation Comments Albumin Lvl (test code = Albumin Lvl) 3.3 3.5-5.0 [facility]2019-05-19 09:08:00 Test Item Value Reference Range Interpretation Comments ALT (test code = ALT) 37 See_Comment [Auto mated message] The system which ge nerated this result transmit yanely reference range : <=65. The reference range was not used to interpr et this result as brielle l/abnormal. [place] 529739-05-19 09:08:00 Test Item Value Reference Range Interpretation Comments Alk Phos (test code = Alk Phos) 96 39-136 [place] [id number] 09:08:00 Test Item Value Reference Range Interpretation Comments AST (test code = AST) 33 See_Comment [Auto mated message] The system which ge nerated this result transmit yanely reference range : <=37. The reference range was not used to interpr et this result as brielle l/abnormal. [facility]2019-05-19 09:08:00 Test Item Value Reference Range Interpretation Comments Glucose Lvl (test code = Glucose Lvl) 98 70-99 [facility]2019-05-19 09:08:00 Test Item Value Reference Range Interpretation Comments BUN (test code = BUN) 11 7-22 [facility]2019-05-19 09:08:00 Test Item Value Reference Range Interpretation Comments Potassium Lvl (test code = Potassium 4.3 3.5-5.1 Lvl) [facility]2019-05-19 09:08:00 Test Item Value Reference Range Interpretation Comments Sodium Lvl (test code = Sodium Lvl) 140 135-145 [facility]2019-05-19 09:08:00 Test Item Value Reference Range Interpretation Comments Creatinine Lvl (test code = Creatinine 0.62 0.50-1.40 Lvl) [facility]2019-05-19 09:08:00 Test Item Value Reference Range Interpretation Comments Ammonia (test code = Ammonia) 67.0 [facility]2019-05-19 09:08:00 Test Item Value Reference Range Interpretation Comments Procalcitonin Lvl (test 0.05 See_Comment [Au tomated message] code = Procalcitonin Lvl) Th e system which generated this result transmitted ref erence range: <=0.10. The reference range was not used to interpr et this result as normal/abnormal . [facility]2019-05-19 09:08:00 Test Item Value Reference Range Interpretation Comments Magnesium Lvl (test code = Magnesium 2.2 1.8-2.4 Lvl) [facility] [id number] 09:08:00 Test Item Value Reference Range Interpretation Comments MCV (test code = MCV) 76.1 80.0-94.0 [facility] H[id number] 09:08:00 Test Item Value Reference Range Interpretation Comments Hct (test code = Hct) 44.7 42.0-54.0 [place] [id number] 09:08:00 Test Item Value Reference Range Interpretation Comments Hgb (test code = Hgb) 14.3 14.0-18.0 [facility] H[id number] 09:08:00 Test Item Value Reference Range Interpretation Comments RDW (test code = RDW) 17.2 11.5-14.5 [facility] H[id number] 09:08:00 Test Item Value Reference Range Interpretation Comments Platelet (test code = Platelet) 284 133-450 [facility] [id number] 09:08:00 Test Item Value Reference Range Interpretation Comments MCH (test code = MCH) 24.2 pg 27.0-31.0 [facility] Hos[id number] 09:08:00 Test Item Value Reference Range Interpretation Comments MCHC (test code = MCHC) 31.9 32.0-36.0 [facility] [id number] 09:08:00 Test Item Value Reference Range Interpretation Comments MPV (test code = MPV) 8.3 7.4-10.4 [facility] H[id number] 09:08:00 Test Item Value Reference Range Interpretation Comments RBC (test code = RBC) 5.88 4.70-6.10 [facility] HospitalGodhovaZDSCGZBRVX0978-06-21 09:08:00 Test Item Value Reference Range Interpretation Comments WBC (test code = WBC) 10.4 3.7-10.4 [facility] [id number] 09:08:00 Test Item Value Reference Range Interpretation Comments Ca Ion WB (test code = Ca Ion WB) 1.10 1.05-1.25 [facility] [id number] 09:08:00 Test Item Value Reference Range Interpretation Comments Ca Norm WB (test code = Ca Norm WB) 1.07 1.05-1.25 [facility]2019-05-18 10:47:00 Test Item Value Reference Range Interpretation Comments Phosphorus (test code = Phosphorus) 3.4 2.5-4.5 [facility]2019-05-18 10:47:00 Test Item Value Reference Range Interpretation Comments eGFR (test code = eGFR) 120 [facility]2019-05-18 10:47:00 Test Item Value Reference Range Interpretation Comments Bili Total (test code = Bili Total) 0.5 0.2-1.3 [facility]2019-05-18 10:47:00 Test Item Value Reference Range Interpretation Comments Total Protein (test code = Total 7.9 6.4-8.4 Protein) [facility]2019-05-18 10:47:00 Test Item Value Reference Range Interpretation Comments ALT (test code = ALT) 37 See_Comment [Auto mated message] The system which ge nerated this result transmit yanely reference range : <=65. The reference range was not used to interpr et this result as brielle l/abnormal. [facility]2019-05-18 10:47:00 Test Item Value Reference Range Interpretation Comments Albumin Lvl (test code = Albumin Lvl) 3.3 3.5-5.0 [facility]2019-05-18 10:47:00 Test Item Value Reference Range Interpretation Comments Alk Phos (test code = Alk Phos) 100 39-136 [facility]2019-05-18 10:47:00 Test Item Value Reference Range Interpretation Comments AST (test code = AST) 27 See_Comment [Auto mated message] The system which ge nerated this result transmit yanely reference range : <=37. The reference range was not used to interpr et this result as brielle l/abnormal. [facility]2019-05-18 10:47:00 Test Item Value Reference Range Interpretation Comments Chloride Lvl (test code = Chloride Lvl) 107 95-109 [facility]2019-05-18 10:47:00 Test Item Value Reference Range Interpretation Comments CO2 (test code = CO2) 28 24-32 [facility]2019-05-18 10:47:00 Test Item Value Reference Range Interpretation Comments Potassium Lvl (test code = Potassium 4.4 3.5-5.1 Lvl) [facility]2019-05-18 10:47:00 Test Item Value Reference Range Interpretation Comments Calcium Lvl (test code = Calcium Lvl) 8.8 8.5-10.5 [facility]2019-05-18 10:47:00 Test Item Value Reference Range Interpretation Comments Sodium Lvl (test code = Sodium Lvl) 141 135-145 [place] 529739-05-18 10:47:00 Test Item Value Reference Range Interpretation Comments Creatinine Lvl (test code = Creatinine 0.61 0.50-1.40 Lvl) [facility]2019-05-18 10:47:00 Test Item Value Reference Range Interpretation Comments BUN (test code = BUN) 9 7-22 [facility]2019-05-18 10:47:00 Test Item Value Reference Range Interpretation Comments Glucose Lvl (test code = Glucose Lvl) 105 70-99 [facility]2019-05-18 10:47:00 Test Item Value Reference Range Interpretation Comments B/C Ratio (test code = B/C Ratio) 15 1 6-25 [facility]2019-05-18 10:47:00 Test Item Value Reference Range Interpretation Comments AGAP (test code = AGAP) 10.4 10.0-20.0 [facility]2019-05-18 10:47:00 Test Item Value Reference Range Interpretation Comments Globulin (test code = Globulin) 4.6 2.7-4.2 [facility]2019-05-18 10:47:00 Test Item Value Reference Range Interpretation Comments A/G Ratio (test code = A/G Ratio) 0.7 1 0.7-1.6 [facility]2019-05-18 10:47:00 Test Item Value Reference Range Interpretation Comments Magnesium Lvl (test code = Magnesium 2.2 1.8-2.4 Lvl) [facility] HospitalVfwzdslLGOZUYTCIR0294-37-56 10:47:00 Test Item Value Reference Range Interpretation Comments Microcyte (test code = 1+ *ABN*(08/03/18 Microcyte) 5:47 AM) [facility] HospitalLmjfnihWANKYVBOFF2640-79-80 10:47:00 Test Item Value Reference Range Interpretation Comments Monocytes # (test code 1.0 See_Comment [Aut omated message] The = Monocytes #) system which generated this result tra nsmitted reference range : <=0.8. The reference r matthieu was not used to int erpret this result as normal/abnormal . [facility] HospitalWpzopfnFUXGKYIBRL6294-58-70 10:47:00 Test Item Value Reference Range Interpretation Comments Lymphocytes # (test code = Lymphocytes 2.9 1.0-5.5 #) [facility] HospitalEolekrxSGOEZERYGB8868-93-03 10:47:00 Test Item Value Reference Range Interpretation Comments Basophils # (test code 0.1 See_Comment [Aut omated message] The = Basophils #) system which generated this result tra nsmitted reference range : <=0.2. The reference r matthieu was not used to int erpret this result as normal/abnormal . [facility] HospitalEcssrdtMOENSLMGAF7124-95-68 10:47:00 Test Item Value Reference Range Interpretation Comments Eosinophils # (test code 0.3 See_Comment [A utomated message] The = Eosinophils #) system whic h generated this result tra nsmitted reference range : <=0.5. The reference r matthieu was not used to int erpret this result as normal/abnormal . [facility] HospitalVisiliyWUKVBOGIWT5162-65-38 10:47:00 Test Item Value Reference Range Interpretation Comments Eosinophils (test code = 3.1 See_Comment [A utomated message] The Eosinophils) system which ge nerated this result tra nsmitted reference range : <=4.0. The reference r matthieu was not used to int erpret this result as normal/abnormal . [facility] HospitalJpphmwuOTPKJUBIRM2228-00-43 10:47:00 Test Item Value Reference Range Interpretation Comments Monocytes (test code = Monocytes) 9.0 2.0-12.0 [facility] HospitalLzftsfpLQKZMBILTE3819-69-48 10:47:00 Test Item Value Reference Range Interpretation Comments Basophils (test code = 0.9 See_Comment [Aut omated message] The Basophils) system which ge nerated this result tra nsmitted reference range : <=1.0. The reference r matthieu was not used to int erpret this result as normal/abnormal . [facility] HospitalHsurkluWSPGZWUSHL4981-23-02 10:47:00 Test Item Value Reference Range Interpretation Comments Neutrophils # (test code = Neutrophils 6.8 1.5-8.1 #) [facility] HospitalMgdjubhWCJUDXTJIY6505-07-28 10:47:00 Test Item Value Reference Range Interpretation Comments Segs (test code = Segs) 61.2 45.0-75.0 [facility] HospitalSacicxwDYWNYZVAFK3068-69-69 10:47:00 Test Item Value Reference Range Interpretation Comments Lymphocytes (test code = Lymphocytes) 25.8 20.0-40.0 [facility] HospitalUojdajwQKNJYBSRUN6071-97-89 10:47:00 Test Item Value Reference Range Interpretation Comments MPV (test code = MPV) 8.4 7.4-10.4 [facility] HospitalGuqcpwdSRLXFMAVGD5066-79-76 10:47:00 Test Item Value Reference Range Interpretation Comments MCHC (test code = MCHC) 31.9 32.0-36.0 [facility] HospitalNffilxbQEJDHGYJMH1804-34-04 10:47:00 Test Item Value Reference Range Interpretation Comments RDW (test code = RDW) 17.3 11.5-14.5 [facility] HospitalGppdujzJOLMLZQSAD3880-55-17 10:47:00 Test Item Value Reference Range Interpretation Comments Hct (test code = Hct) 43.0 42.0-54.0 [facility] HospitalIzllgwwMSXVHQSKXS4868-88-13 10:47:00 Test Item Value Reference Range Interpretation Comments MCH (test code = MCH) 24.3 pg 27.0-31.0 [facility] HospitalImmcougQTZJAMVHZI4074-50-25 10:47:00 Test Item Value Reference Range Interpretation Comments MCV (test code = MCV) 76.3 80.0-94.0 [facility] HospitalIvfvnixLOAXJEOFXN1677-66-54 10:47:00 Test Item Value Reference Range Interpretation Comments RBC (test code = RBC) 5.64 4.70-6.10 [facility] HospitalKitgrxoIEMPUOBCUP6777-12-70 10:47:00 Test Item Value Reference Range Interpretation Comments WBC (test code = WBC) 11.1 3.7-10.4 [facility] HospitalUasstlrFKLDQWAHEJ2255-80-43 10:47:00 Test Item Value Reference Range Interpretation Comments Hgb (test code = Hgb) 13.7 14.0-18.0 [facility] HospitalEykzoagKURRWSYIMK3009-55-50 10:47:00 Test Item Value Reference Range Interpretation Comments Platelet (test code = Platelet) 287 133-450 [facility] HospitalTemgnuyKEXGTH9033-52-26 10:47:00 Test Item Value Reference Range Interpretation Comments LDL (Calculated) (test code = LDL 78 (Calculated)) [facility] HospitalLttsnhwRYXPGG3819-05-97 10:47:00 Test Item Value Reference Range Interpretation Comments VLDL (test code = VLDL) 26 1 [facility] HospitalKhgospwVXHYRR2574-72-31 10:47:00 Test Item Value Reference Range Interpretation Comments HDL (test code = HDL) 27 [facility] JfnsjfwMGQQNW7278-79-48 10:47:00 Test Item Value Reference Range Interpretation Comments Trig (test code = Trig) 128 [facility] BoofnthTYQUPL8869-22-74 10:47:00 Test Item Value Reference Range Interpretation Comments Chol (test code = Chol) 131 [facility] MvxzsopUFPZJE0189-40-17 10:47:00 Test Item Value Reference Range Interpretation Comments CHD Risk (test code = CHD Risk) 4.85 1 4.00-7.30 [facility]PAR[facility]YRO[facility] KEIEHFC6608-92-41 10:47:00 Test Item Value Reference Range Interpretation Comments Ca Norm WB (test code = Ca Norm WB) 1.08 1.05-1.25 [facility] GQHPTAJ1718-56-32 10:47:00 Test Item Value Reference Range Interpretation Comments Ca Ion WB (test code = Ca Ion WB) 1.08 1.05-1.25 [facility] [id number] 10:47:00 Test Item Value Reference Range Interpretation Comments Hgb A1C (test code = Hgb A1C) 6.1 [facility] [id number] 03:13:00 Test Item Value Reference Range Interpretation Comments U Cannab Scr (test Negative *NA*(08/02/18 code = U Cannab Scr) 10:13 PM) [facility] [id number] 03:13:00 Test Item Value Reference Range Interpretation Comments U Opiate Scr (test Negative *NA*(08/02/18 code = U Opiate Scr) 10:13 PM) [facility] [id number] 03:13:00 Test Item Value Reference Range Interpretation Comments UDS Note (test code = See Note (08/02/18 10:13 UDS Note) PM) [facility] [id number] 03:13:00 Test Item Value Reference Range Interpretation Comments U Phencyclidine Scr (test Negative code = U Phencyclidine *NA*(08/02/18 10:13 Scr) PM) [facility] [id number] 03:13:00 Test Item Value Reference Range Interpretation Comments U Benzodiaz Scr (test Negative *NA*(08/02/18 code = U Benzodiaz Scr) 10:13 PM) [facility] [id number] 03:13:00 Test Item Value Reference Range Interpretation Comments U Cocaine Scr (test Negative *NA*(08/02/18 code = U Cocaine Scr) 10:13 PM) [facility] [id number] 03:13:00 Test Item Value Reference Range Interpretation Comments U Tsephanie Scr (test code Negative *NA*(08/02/18 = U Stephanie Scr) 10:13 PM) [facility] [id number] 03:13:00 Test Item Value Reference Range Interpretation Comments U Amph Scr (test code Negative *NA*(08/02/18 = U Amph Scr) 10:13 PM) [facility] [id number] 03:13:00 Test Item Value Reference Range Interpretation Comments UA Color (test code = Yellow *NA*(08/02/18 UA Color) 10:13 PM) [facility] [id number] 03:13:00 Test Item Value Reference Range Interpretation Comments UA Turbidity (test code = Clear (08/02/18 10:13 UA Turbidity) PM) [facility] [id number] 03:13:00 Test Item Value Reference Range Interpretation Comments UA Protein (test code Negative (08/02/18 10:13 = UA Protein) PM) [facility] [id number] 03:13:00 Test Item Value Reference Range Interpretation Comments UA Spec Grav (test code = UA Spec 1.010 1 Grav) [facility] [id number] 03:13:00 Test Item Value Reference Range Interpretation Comments UA Glucose (test code Negative (08/02/18 10:13 = UA Glucose) PM) [facility] [id number] 03:13:00 Test Item Value Reference Range Interpretation Comments UA pH (test code = UA pH) 6.0 1 5.0-8.0 [facility] [id number] 03:13:00 Test Item Value Reference Range Interpretation Comments UA Bili (test code = Negative *NA*(08/02/18 UA Bili) 10:13 PM) [facility] [id number] 03:13:00 Test Item Value Reference Range Interpretation Comments UA Blood (test code = Negative (08/02/18 10:13 UA Blood) PM) [facility] [id number] 03:13:00 Test Item Value Reference Range Interpretation Comments UA Ketones (test code Negative *NA*(08/02/18 = UA Ketones) 10:13 PM) [facility] AND [id number] 03:13:00 Test Item Value Reference Range Interpretation Comments UA WBC (test code = UA WBC) 0-2 /HPF [facility] AND [id number] 03:13:00 Test Item Value Reference Range Interpretation Comments UA Leuk Est (test Negative (08/02/18 10:13 code = UA Leuk Est) PM) [facility] AND [id number] 03:13:00 Test Item Value Reference Range Interpretation Comments UA Nitrite (test code Negative (08/02/18 10:13 = UA Nitrite) PM) [facility] AND [id number] 03:13:00 Test Item Value Reference Range Interpretation Comments UA Urobilinogen (test code = UA 1.0 0.1-1.0 Urobilinogen) [facility] AND [id number] 03:13:00 Test Item Value Reference Range Interpretation Comments UA Sq Epi (test code = UA Sq Occasional /LPF Epi) [facility] AND [id number] 03:13:00 Test Item Value Reference Range Interpretation Comments UA Bacteria (test code = UA Few /HPF Bacteria) [facility] AND [id number] 03:13:00 Test Item Value Reference Range Interpretation Comments UA RBC (test code = 0-2 /HPF See_Comment [Automa yanely message] The UA RBC) system which ge nerated this result tra nsmitted reference range : <=2. The reference range was not used to interpr et this result as brielle l/abnormal. [facility] [employer] [id number] 23:08:00 Test Item Value Reference Range Interpretation Comments ABO/Rh (test code = ABO/Rh) O POS [facility] [employer] [id number] 23:08:00 Test Item Value Reference Range Interpretation Comments Antibody Scrn (test Negative (08/02/18 6:08 code = Antibody Scrn) PM) [facility]dpLFZPMVSSOY4720-20-59 23:06:00 Test Item Value Reference Range Interpretation Comments CDC HIV 4th GEN (test Negative *NA*(08/02/18 code = CDC HIV 4th 6:06 PM) GEN) [facility] HospitalCARDIAC [id number] 22:29:00 Test Item Value Reference Range Interpretation Comments Troponin-I (test code no gt See_Comment [Auto mated message] The = Troponin-I) system which g enerated this result transmit yanely reference range : <=0.40. The reference r matthieu was not used to interpr et this result as brielle l/abnormal. [facility] HospitalTdnzoytZJCGEBYNOZAJ3822-69-40 22:29:00 Test Item Value Reference Range Interpretation Comments AGAP (test code = AGAP) 9.3 10.0-20.0 [facility] HospitalSit[id number] 22:29:00 Test Item Value Reference Range Interpretation Comments eGFR (test code = eGFR) 113 [facility] HospitalZxrhzngOUOLXDYVAUID5154-80-48 22:29:00 Test Item Value Reference Range Interpretation Comments Chloride Lvl (test code = Chloride Lvl) 105 95-109 [facility] HospitalSioajbdPLWSMWFEVLIX7436-96-79 22:29:00 Test Item Value Reference Range Interpretation Comments CO2 (test code = CO2) 31 24-32 [facility] HospitalDrrqrvsOMLGOAHHQEMO0359-56-33 22:29:00 Test Item Value Reference Range Interpretation Comments Calcium Lvl (test code = Calcium Lvl) 8.9 8.5-10.5 [facility] HospitalSoffgquAGSIBRZNEBWP5341-11-70 22:29:00 Test Item Value Reference Range Interpretation Comments Potassium Lvl (test code = Potassium 4.3 3.5-5.1 Lvl) [facility] Hos[id number] 22:29:00 Test Item Value Reference Range Interpretation Comments Creatinine Lvl (test code = Creatinine 0.71 0.50-1.40 Lvl) [facility] HospitalApytyxhTDRDQHIURWAF9210-02-68 22:29:00 Test Item Value Reference Range Interpretation Comments Sodium Lvl (test code = Sodium Lvl) 141 135-145 [facility] HospitalZqftmikHJQVRNCRDEJP9877-99-52 22:29:00 Test Item Value Reference Range Interpretation Comments BUN (test code = BUN) 9 7-22 [facility] HospitalFyeuuxeEQEUWGUQEIPS8297-73-31 22:29:00 Test Item Value Reference Range Interpretation Comments Glucose Lvl (test code = Glucose Lvl) 136 70-99 [facility] HospitalPpluzniMWURIYJHEK5440-58-90 22:29:00 Test Item Value Reference Range Interpretation Comments PT (test code = PT) 12.1 s 12.0-14.7 [facility] HospitalMbkmbirXNVQTRBPZI8217-73-91 22:29:00 Test Item Value Reference Range Interpretation Comments INR (test code = INR) 0.91 1 0.85-1.17 [facility] HospitalRikuicyPPGNTQYYXW0423-76-82 22:29:00 Test Item Value Reference Range Interpretation Comments PTT (test code = PTT) 32.7 s 22.9-35.8 [facility] HospitalDnuxklvHSMZYUABIK9484-38-21 22:29:00 Test Item Value Reference Range Interpretation Comments Platelet (test code = Platelet) 247 133-450 [facility] HospitalStaoxzaOPSXVLKOKI0657-56-47 22:29:00 Test Item Value Reference Range Interpretation Comments MPV (test code = MPV) 8.7 7.4-10.4 [facility] HospitalOhqctvbRLOOSXCTDF1090-49-50 22:29:00 Test Item Value Reference Range Interpretation Comments MCV (test code = MCV) 76.9 80.0-94.0 [facility] HospitalUyyloxzWNZJNIDAYH1931-21-79 22:29:00 Test Item Value Reference Range Interpretation Comments Hct (test code = Hct) 44.1 42.0-54.0 [facility] HospitalKfcspdhYQZOKRDLHZ9499-17-85 22:29:00 Test Item Value Reference Range Interpretation Comments MCH (test code = MCH) 24.2 pg 27.0-31.0 [facility] HospitalHcsorcvFZMYHTIVFL4935-65-96 22:29:00 Test Item Value Reference Range Interpretation Comments RDW (test code = RDW) 17.5 11.5-14.5 [facility] HospitalBjmtsckXVPHGFGZHI3689-21-83 22:29:00 Test Item Value Reference Range Interpretation Comments MCHC (test code = MCHC) 31.5 32.0-36.0 [facility] HospitalMqsedtvODQAETOMSZ1667-64-06 22:29:00 Test Item Value Reference Range Interpretation Comments RBC (test code = RBC) 5.73 4.70-6.10 [facility] HospitalPftzlotTLSPUJSVBW8663-03-61 22:29:00 Test Item Value Reference Range Interpretation Comments WBC (test code = WBC) 9.5 3.7-10.4 [facility] HospitalBrpxpitGTFCNCGEWN1824-70-27 22:29:00 Test Item Value Reference Range Interpretation Comments Hgb (test code = Hgb) 13.9 14.0-18.0 [facility] HospitalPqchhmwQZLTFKLYPD0889-96-51 22:29:00 Test Item Value Reference Range Interpretation Comments Monocytes # (test code 0.7 See_Comment [Aut omated message] The = Monocytes #) system which generated this result tra nsmitted reference range : <=0.8. The reference r mathtieu was not used to int erpret this result as normal/abnormal . [facility] HospitalQnlgyhaOVEZFKSBWN6424-87-90 22:29:00 Test Item Value Reference Range Interpretation Comments Eosinophils # (test code 0.2 See_Comment [A utomated message] The = Eosinophils #) system whic h generated this result tra nsmitted reference range : <=0.5. The reference r matthieu was not used to int erpret this result as normal/abnormal . [facility] HospitalLzwuvsvPRGHWKJECE8612-88-62 22:29:00 Test Item Value Reference Range Interpretation Comments Eosinophils (test code = 2.5 See_Comment [A utomated message] The Eosinophils) system which ge nerated this result tra nsmitted reference range : <=4.0. The reference r matthieu was not used to int erpret this result as normal/abnormal . [facility] HospitalWozmdumMKFJJNXNGX8093-53-59 22:29:00 Test Item Value Reference Range Interpretation Comments Neutrophils # (test code = Neutrophils 6.2 1.5-8.1 #) [facility] HospitalVtbjvamCELZKVSEPN2839-87-00 22:29:00 Test Item Value Reference Range Interpretation Comments Basophils (test code = 0.6 See_Comment [Aut omated message] The Basophils) system which ge nerated this result tra nsmitted reference range : <=1.0. The reference r matthieu was not used to int erpret this result as normal/abnormal . [facility] HospitalXznowewXBXPURZSEH1928-72-74 22:29:00 Test Item Value Reference Range Interpretation Comments Lymphocytes (test code = Lymphocytes) 23.9 20.0-40.0 [facility] HospitalCdpyqdvCLIGJCKZNX7336-31-59 22:29:00 Test Item Value Reference Range Interpretation Comments Segs (test code = Segs) 65.6 45.0-75.0 [facility] HospitalNfmrpwfKIGVOZSYCB0729-99-19 22:29:00 Test Item Value Reference Range Interpretation Comments Monocytes (test code = Monocytes) 7.4 2.0-12.0 [facility] HospitalBpxmjdmYJPSTVGJCU9629-96-94 22:29:00 Test Item Value Reference Range Interpretation Comments Lymphocytes # (test code = Lymphocytes 2.3 1.0-5.5 #) [facility] HospitalPcftwptTJGIQGWOQB0239-37-57 22:29:00 Test Item Value Reference Range Interpretation Comments Basophils # (test code 0.1 See_Comment [Aut omated message] The = Basophils #) system which generated this result tra nsmitted reference range : <=0.2. The reference r matthieu was not used to int erpret this result as normal/abnormal . [facility] HospitalVnjfnfaTWVTYXJSRG0992-17-69 22:29:00 Test Item Value Reference Range Interpretation Comments Microcyte (test code = 1+ *ABN*(08/02/18 Microcyte) 5:29 PM) [facility]2018-11-06 22:31:00 Test Item Value Reference Range Interpretation Comments eGFR (test code = eGFR) 121 [facility]2018-11-06 22:31:00 Test Item Value Reference Range Interpretation Comments POC Creatinine (test code = POC 0.6 0.5-1.4 Creatinine) [facility] HospitalCyjeemiKNIJPCJKGDNI2690-42-30 09:58:00 Test Item Value Reference Range Interpretation Comments AGAP (test code = AGAP) 7.9 10.0-20.0 [facility] HospitalUlkwevjGIQVZUASXINV9018-44-12 09:58:00 Test Item Value Reference Range Interpretation Comments eGFR (test code = eGFR) 117 [facility] HospitalUyzbywzIJRPOXXPWRAG2593-23-37 09:58:00 Test Item Value Reference Range Interpretation Comments CO2 (test code = CO2) 31 24-32 [facility] HospitalHfwjqaiHSUZNOFEPFJT5659-56-36 09:58:00 Test Item Value Reference Range Interpretation Comments Chloride Lvl (test code = Chloride Lvl) 106 95-109 [facility] HospitalDwsupgqDQOJXLAWVJXV7597-01-98 09:58:00 Test Item Value Reference Range Interpretation Comments Calcium Lvl (test code = Calcium Lvl) 8.4 8.5-10.5 [facility] HospitalMutvdkzNLYVDSXMPXTP9263-05-96 09:58:00 Test Item Value Reference Range Interpretation Comments BUN (test code = BUN) 6 7-22 [facility] HospitalNqiinacPPJGIHQCETMY3270-59-47 09:58:00 Test Item Value Reference Range Interpretation Comments Sodium Lvl (test code = Sodium Lvl) 141 135-145 [facility] [facility]ObsvusjJSEKVCARUOCH0862-12-81 09:58:00 Test Item Value Reference Range Interpretation Comments Creatinine Lvl (test code = Creatinine 0.66 0.50-1.40 Lvl) [facility] HospitalAgyicecXPIYDTEHLTVQ6149-69-94 09:58:00 Test Item Value Reference Range Interpretation Comments Potassium Lvl (test code = Potassium 3.9 3.5-5.1 Lvl) [facility] HospitalOqkkiioCXEUDDOGJZUQ5469-38-26 09:58:00 Test Item Value Reference Range Interpretation Comments Glucose Lvl (test code = Glucose Lvl) 174 70-99 [facility] HospitalMitkjndOTTMUGYFHM4202-61-91 09:58:00 Test Item Value Reference Range Interpretation Comments Basophils (test code = 0.4 See_Comment [Aut omated message] The Basophils) system which ge nerated this result tra nsmitted reference range : <=1.0. The reference r matthieu was not used to int erpret this result as normal/abnormal . [facility] HospitalNgrzeqxCCXESRPQQY1819-70-47 09:58:00 Test Item Value Reference Range Interpretation Comments Neutrophils # (test code = Neutrophils 6.9 1.5-8.1 #) [facility] HospitalUybtoroFLHRLDXKEV5849-03-18 09:58:00 Test Item Value Reference Range Interpretation Comments Lymphocytes # (test code = Lymphocytes 3.1 1.0-5.5 #) [facility] HospitalDjrzmpoCWZOBKNYEG1188-14-34 09:58:00 Test Item Value Reference Range Interpretation Comments Monocytes # (test code 0.8 See_Comment [Aut omated message] The = Monocytes #) system which generated this result tra nsmitted reference range : <=0.8. The reference r matthieu was not used to int erpret this result as normal/abnormal . [facility] HospitalOwlsasyBBNILAXYQF6897-88-92 09:58:00 Test Item Value Reference Range Interpretation Comments Basophils # (test code 0.0 See_Comment [Aut omated message] The = Basophils #) system which generated this result tra nsmitted reference range : <=0.2. The reference r matthieu was not used to int erpret this result as normal/abnormal . [facility] HospitalWmuzjicFYROMKCEIJ1569-10-63 09:58:00 Test Item Value Reference Range Interpretation Comments Eosinophils # (test code 0.3 See_Comment [A utomated message] The = Eosinophils #) system whic h generated this result tra nsmitted reference range : <=0.5. The reference r matthieu was not used to int erpret this result as normal/abnormal . [facility] HospitalYvfnwvoZYTYKBTFFU0357-62-95 09:58:00 Test Item Value Reference Range Interpretation Comments Eosinophils (test code = 2.8 See_Comment [A utomated message] The Eosinophils) system which ge nerated this result tra nsmitted reference range : <=4.0. The reference r matthieu was not used to int erpret this result as normal/abnormal . [facility] HospitalZokiaxhEAAOLBFENM5623-27-28 09:58:00 Test Item Value Reference Range Interpretation Comments Segs (test code = Segs) 61.7 45.0-75.0 [facility] HospitalSfueywuAKJPXCFINB8913-24-41 09:58:00 Test Item Value Reference Range Interpretation Comments Lymphocytes (test code = Lymphocytes) 27.6 20.0-40.0 [facility] HospitalJtyetlfIICDSOBVDQ5389-79-67 09:58:00 Test Item Value Reference Range Interpretation Comments Monocytes (test code = Monocytes) 7.5 2.0-12.0 [facility] HospitalSajtkvxRIAGGAEGME7573-29-13 09:58:00 Test Item Value Reference Range Interpretation Comments Platelet (test code = Platelet) 294 133-450 [facility] HospitalChuthydCCSQYSCZTU0724-98-08 09:58:00 Test Item Value Reference Range Interpretation Comments MPV (test code = MPV) 8.7 7.4-10.4 [facility] HospitalUepvlqfUJHVBVLSIV4220-57-56 09:58:00 Test Item Value Reference Range Interpretation Comments WBC (test code = WBC) 11.2 3.7-10.4 [facility] HospitalHhjhlgoGTATSHUXHH0007-55-82 09:58:00 Test Item Value Reference Range Interpretation Comments MCHC (test code = MCHC) 31.3 32.0-36.0 [facility] HospitalRrhbfrdXMMZWDVOCO7412-49-58 09:58:00 Test Item Value Reference Range Interpretation Comments MCV (test code = MCV) 77.6 80.0-94.0 [facility] HospitalCmislrzOLEYSALLLV7726-15-25 09:58:00 Test Item Value Reference Range Interpretation Comments MCH (test code = MCH) 24.3 pg 27.0-31.0 [facility]NyagxsbLKNQTUDCHP6245-60-25 09:58:00 Test Item Value Reference Range Interpretation Comments Hgb (test code = Hgb) 12.9 14.0-18.0 [facility] HospitalUebghmlIHQSSDDAOK7104-52-22 09:58:00 Test Item Value Reference Range Interpretation Comments Hct (test code = Hct) 41.3 42.0-54.0 [facility]LtjafzbORQOPNNKNF5114-13-49 09:58:00 Test Item Value Reference Range Interpretation Comments RDW (test code = RDW) 16.9 11.5-14.5 [facility] HospitalExianjsKBWGECXQEO3053-48-54 09:58:00 Test Item Value Reference Range Interpretation Comments RBC (test code = RBC) 5.32 4.70-6.10 [facility] CenterSfdflqbHQETMX0468-99-48 09:58:00 Test Item Value Reference Range Interpretation Comments CHD Risk (test code = CHD Risk) 4.74 1 4.00-7.30 [facility] CenterHgvivzhZZKRHL5917-96-78 09:58:00 Test Item Value Reference Range Interpretation Comments LDL (Calculated) (test code = LDL 99 (Calculated)) [facility] HospitalHebzbhkXVPUIN2954-65-16 09:58:00 Test Item Value Reference Range Interpretation Comments HDL (test code = HDL) 31 [facility] CenterHpqftcmMSJAXQ2974-54-43 09:58:00 Test Item Value Reference Range Interpretation Comments VLDL (test code = VLDL) 17 1 [facility] CenterMfyycrwGAZMOJ2513-02-97 09:58:00 Test Item Value Reference Range Interpretation Comments Chol (test code = Chol) 147 [facility] CenterUzbjdjcUUTJYP4253-56-28 09:58:00 Test Item Value Reference Range Interpretation Comments Trig (test code = Trig) 83 [facility] VOUYZVEWD9249-67-45 09:58:00 Test Item Value Reference Range Interpretation Comments Hgb A1C (test code = Hgb A1C) 6.6 [facility]ann[facility] AND [id number] 01:54:00 Test Item Value Reference Range Interpretation Comments UA [place] Yeast (test code = UA Occasional /HPF [place] Yeast) [facility] [id number] 01:54:00 Test Item Value Reference Range Interpretation Comments UA Urobilinogen (test code = UA <=1.0 mg/dL 0.1-1.0 Urobilinogen) [facility] AND [id number] 01:54:00 Test Item Value Reference Range Interpretation Comments UA Protein (test code = UA Negative mg/dL Protein) [facility] AND [id number] 01:54:00 Test Item Value Reference Range Interpretation Comments UA Glucose (test code = UA Negative mg/dL Glucose) [facility] AND [id number] 01:54:00 Test Item Value Reference Range Interpretation Comments UA Ketones (test code = UA Negative mg/dL Ketones) [facility] AND [id number] 01:54:00 Test Item Value Reference Range Interpretation Comments UA Bili (test code = Negative *NA*(10/31/17 UA Bili) 8:54 PM) [facility] AND [id number] 01:54:00 Test Item Value Reference Range Interpretation Comments UA CaOx Danyelle (test code = UA Occasional /HPF CaOx Danyelle) [facility] AND [id number] 01:54:00 Test Item Value Reference Range Interpretation Comments UA RBC (test code = 2 See_Comment [Automa yanely message] The UA RBC) system which ge nerated this result transmit yanely reference range : <=2. The reference range was not used to interpr et this result as brielle l/abnormal. [facility] AND IKFVY6330-55-22 01:54:00 Test Item Value Reference Range Interpretation Comments UA Color (test code = Light Yellow UA Color) *NA*(10/31/17 8:54 PM) [facility] AND [id number] 01:54:00 Test Item Value Reference Range Interpretation Comments UA Turbidity (test code = Clear (10/31/17 8:54 UA Turbidity) PM) [facility] AND [id number] 01:54:00 Test Item Value Reference Range Interpretation Comments UA Spec Grav (test code = UA Spec 1.003 1 Grav) [facility] AND [id number] 01:54:00 Test Item Value Reference Range Interpretation Comments UA pH (test code = UA pH) 6.0 1 5.0-8.0 [facility] AND [id number] 01:54:00 Test Item Value Reference Range Interpretation Comments UA Nitrite (test code Negative (10/31/17 8:54 = UA Nitrite) PM) [facility] AND [id number] 01:54:00 Test Item Value Reference Range Interpretation Comments UA Blood (test code = Negative (10/31/17 8:54 UA Blood) PM) [facility] AND [id number] 01:54:00 Test Item Value Reference Range Interpretation Comments UA Leuk Est (test Negative (10/31/17 8:54 code = UA Leuk Est) PM) [facility] AND [id number] 01:54:00 Test Item Value Reference Range Interpretation Comments UA Sq Epi (test code = UA Sq Occasional /LPF Epi) [facility] HospitalCARJumpSellerAC [id number] 01:12:00 Test Item Value Reference Range Interpretation Comments Total CK (test code = Total CK) 85 12-191 [facility] HospitalYobongo QKZXKLB3673-54-98 01:12:00 Test Item Value Reference Range Interpretation Comments Troponin-I (test code no gt See_Comment [Auto mated message] The = Troponin-I) system which g enerated this result transmit yanely reference range : <=0.40. The reference r matthieu was not used to interpr et this result as brielle l/abnormal. [facility] [id number] 01:12:00 Test Item Value Reference Range Interpretation Comments eGFR (test code = eGFR) 110 [facility] [id number] 01:12:00 Test Item Value Reference Range Interpretation Comments ALT (test code = ALT) 28 See_Comment [Auto mated message] The system which ge nerated this result transmit yanely reference range : <=65. The reference range was not used to interpr et this result as brielle l/abnormal. [facility] [id number] 01:12:00 Test Item Value Reference Range Interpretation Comments AST (test code = AST) 10 See_Comment [Auto mated message] The system which ge nerated this result transmit yanely reference range : <=37. The reference range was not used to interpr et this result as brielle l/abnormal. [facility] [id number] 01:12:00 Test Item Value Reference Range Interpretation Comments Albumin Lvl (test code = Albumin Lvl) 3.5 3.5-5.0 [facility]2018-08-16 01:12:00 Test Item Value Reference Range Interpretation Comments CO2 (test code = CO2) 33 24-32 [facility]2018-08-16 01:12:00 Test Item Value Reference Range Interpretation Comments Calcium Lvl (test code = Calcium Lvl) 8.8 8.5-10.5 [facility]2018-08-16 01:12:00 Test Item Value Reference Range Interpretation Comments Total Protein (test code = Total 8.0 6.4-8.4 Protein) [facility]2018-08-16 01:12:00 Test Item Value Reference Range Interpretation Comments Bili Total (test code = Bili Total) 0.4 0.2-1.3 [facility]2018-08-16 01:12:00 Test Item Value Reference Range Interpretation Comments Alk Phos (test code = Alk Phos) 103 39-136 [facility]2018-08-16 01:12:00 Test Item Value Reference Range Interpretation Comments Sodium Lvl (test code = Sodium Lvl) 141 135-145 [facility]2018-08-16 01:12:00 Test Item Value Reference Range Interpretation Comments Potassium Lvl (test code = Potassium 3.8 3.5-5.1 Lvl) [facility]2018-08-16 01:12:00 Test Item Value Reference Range Interpretation Comments Chloride Lvl (test code = Chloride Lvl) 104 95-109 [facility]2018-08-16 01:12:00 Test Item Value Reference Range Interpretation Comments BUN (test code = BUN) 8 7-22 [facility]2018-08-16 01:12:00 Test Item Value Reference Range Interpretation Comments Glucose Lvl (test code = Glucose Lvl) 199 70-99 [facility]2018-08-16 01:12:00 Test Item Value Reference Range Interpretation Comments Creatinine Lvl (test code = Creatinine 0.76 0.50-1.40 Lvl) [facility]2018-08-16 01:12:00 Test Item Value Reference Range Interpretation Comments A/G Ratio (test code = A/G Ratio) 0.8 1 0.7-1.6 [facility]2018-08-16 01:12:00 Test Item Value Reference Range Interpretation Comments B/C Ratio (test code = B/C Ratio) 11 1 6-25 [facility]2018-08-16 01:12:00 Test Item Value Reference Range Interpretation Comments Globulin (test code = Globulin) 4.5 2.7-4.2 [facility]2018-08-16 01:12:00 Test Item Value Reference Range Interpretation Comments AGAP (test code = AGAP) 7.8 10.0-20.0 [facility] HospitalPpfqxvcKRILSLQGTQ0706-59-34 01:12:00 Test Item Value Reference Range Interpretation Comments Microcyte (test code = 1+ *ABN*(10/31/17 Microcyte) 8:12 PM) [facility] HospitalZnmadryBKQHHDHZQW5260-13-73 01:12:00 Test Item Value Reference Range Interpretation Comments Anisocyte (test code = 1+ *ABN*(10/31/17 Anisocyte) 8:12 PM) [facility] HospitalMvupcgtVBXZMAYAQO6718-74-26 01:12:00 Test Item Value Reference Range Interpretation Comments Hypochrom (test code = 1+ (10/31/17 8:12 PM) Hypochrom) [facility] HospitalMgcfznsDLUPXWXDGV3872-81-86 01:12:00 Test Item Value Reference Range Interpretation Comments Monocytes (test code = Monocytes) 5.9 2.0-12.0 [facility] HospitalKkwcbglKMQZLYKGDA6472-85-69 01:12:00 Test Item Value Reference Range Interpretation Comments Basophils (test code = 0.4 See_Comment [Aut omated message] The Basophils) system which ge nerated this result tra nsmitted reference range : <=1.0. The reference r matthieu was not used to int erpret this result as normal/abnormal . [facility] HospitalCnydjlgNYMPXXNBBJ3653-49-07 01:12:00 Test Item Value Reference Range Interpretation Comments Basophils # (test code 0.1 See_Comment [Aut omated message] The = Basophils #) system which generated this result tra nsmitted reference range : <=0.2. The reference r matthieu was not used to int erpret this result as normal/abnormal . [facility] HospitalEegiujrGZYRLGRZDU4697-69-52 01:12:00 Test Item Value Reference Range Interpretation Comments Eosinophils # (test code 0.2 See_Comment [A utomated message] The = Eosinophils #) system whic h generated this result tra nsmitted reference range : <=0.5. The reference r matthieu was not used to int erpret this result as normal/abnormal . [facility] HospitalHeuvuqlXJUXSYYXVY4580-73-82 01:12:00 Test Item Value Reference Range Interpretation Comments Monocytes # (test code 0.9 See_Comment [Aut omated message] The = Monocytes #) system which generated this result tra nsmitted reference range : <=0.8. The reference r matthieu was not used to int erpret this result as normal/abnormal . [facility] HospitalNqmeshtUNFYNMULVH2530-68-17 01:12:00 Test Item Value Reference Range Interpretation Comments Eosinophils (test code = 1.4 See_Comment [A utomated message] The Eosinophils) system which ge nerated this result tra nsmitted reference range : <=4.0. The reference r matthieu was not used to int erpret this result as normal/abnormal . [facility] HospitalGlivhdxKOGJOLQYMC0583-54-13 01:12:00 Test Item Value Reference Range Interpretation Comments Lymphocytes # (test code = Lymphocytes 2.9 1.0-5.5 #) [facility] HospitalFyqfdovLUDFHJJYNY5942-74-06 01:12:00 Test Item Value Reference Range Interpretation Comments Neutrophils # (test code = Neutrophils 10.8 1.5-8.1 #) [facility] HospitalNdwscowJDVGTIRQYI7202-86-11 01:12:00 Test Item Value Reference Range Interpretation Comments Lymphocytes (test code = Lymphocytes) 19.7 20.0-40.0 [facility] HospitalDgrozbaDEJWOHOTMJ4898-64-40 01:12:00 Test Item Value Reference Range Interpretation Comments Segs (test code = Segs) 72.6 45.0-75.0 [facility] HospitalWeqzphtCCUSBZQDLK3317-59-25 01:12:00 Test Item Value Reference Range Interpretation Comments RBC Morph (test code = Normal (10/31/17 8:12 RBC Morph) PM) [facility] HospitalSrplhxkODGZISTXER3317-66-80 01:12:00 Test Item Value Reference Range Interpretation Comments Plt Morph (test code = Normal (10/31/17 8:12 Plt Morph) PM) [facility] HospitalRxvmggaHHAVCKKJXF2279-56-34 01:12:00 Test Item Value Reference Range Interpretation Comments Platelet (test code = Platelet) 294 133-450 [facility] HospitalNcyldygAOWIKWAUCW6621-33-62 01:12:00 Test Item Value Reference Range Interpretation Comments MPV (test code = MPV) 8.5 7.4-10.4 [facility] HospitalCtwlxboDYZPYWJRCU5382-70-55 01:12:00 Test Item Value Reference Range Interpretation Comments RDW (test code = RDW) 17.1 11.5-14.5 [facility] HospitalKqtclaiCPSVLZYGEI1933-79-61 01:12:00 Test Item Value Reference Range Interpretation Comments MCH (test code = MCH) 24.2 pg 27.0-31.0 [facility] HospitalKrtjwpdKSQSCZQKOD0750-63-23 01:12:00 Test Item Value Reference Range Interpretation Comments MCV (test code = MCV) 78.0 80.0-94.0 [facility] HospitalTzrzgfgPROZOXGEIQ5307-36-46 01:12:00 Test Item Value Reference Range Interpretation Comments MCHC (test code = MCHC) 31.0 32.0-36.0 [facility] HospitalPbqiqwwEDNOMOKPEH8410-84-29 01:12:00 Test Item Value Reference Range Interpretation Comments Hgb (test code = Hgb) 13.3 14.0-18.0 [facility] HospitalQivmevsFTRYDTCQJH4552-52-67 01:12:00 Test Item Value Reference Range Interpretation Comments Hct (test code = Hct) 42.7 42.0-54.0 [facility] HospitalNvxlmvnVFXYHCWESC9076-59-03 01:12:00 Test Item Value Reference Range Interpretation Comments WBC (test code = WBC) 14.9 3.7-10.4 [facility] HospitalBqqiakbHGALSNTCLS7101-09-10 01:12:00 Test Item Value Reference Range Interpretation Comments RBC (test code = RBC) 5.48 4.70-6.10 [facility]CHEM DZUGN4462-39-73 07:38:00 Test Item Value Reference Range Interpretation Comments Phosphorus (test code = Phosphorus) 3.4 2.5-4.5 [facility] HospitalIslxrsnMNMTLXQAYVGS7603-74-39 07:38:00 Test Item Value Reference Range Interpretation Comments AGAP (test code = AGAP) 13.0 10.0-20.0 [facility] HospitalIyajyelDZKCVDPTMKPD0595-69-79 07:38:00 Test Item Value Reference Range Interpretation Comments eGFR (test code = eGFR) 117 [facility] HospitalNbrnnkfCQCFITQAWUFL3993-28-35 07:38:00 Test Item Value Reference Range Interpretation Comments Glucose Lvl (test code = Glucose Lvl) 116 70-99 [facility] HospitalWlisiblVVJTKBSNROAV2340-91-71 07:38:00 Test Item Value Reference Range Interpretation Comments BUN (test code = BUN) 8 7-22 [facility] HospitalZmqsbfkOVRDGPLNIQFI4174-79-84 07:38:00 Test Item Value Reference Range Interpretation Comments CO2 (test code = CO2) 29 24-32 [facility] HospitalXxhzurzZIFSDNMJQHRB8846-09-17 07:38:00 Test Item Value Reference Range Interpretation Comments Calcium Lvl (test code = Calcium Lvl) 8.9 8.5-10.5 [facility] HospitalVnltusrMBAFJXADHNHM5305-08-29 07:38:00 Test Item Value Reference Range Interpretation Comments Potassium Lvl (test code = Potassium 4.0 3.5-5.1 Lvl) [facility] HospitalIqceqegVESCTZYCVEUZ9934-16-14 07:38:00 Test Item Value Reference Range Interpretation Comments Creatinine Lvl (test code = Creatinine 0.66 0.50-1.40 Lvl) [facility] HospitalXyrrzxhGWBMCFCGYDJB7948-49-61 07:38:00 Test Item Value Reference Range Interpretation Comments Sodium Lvl (test code = Sodium Lvl) 142 135-145 [facility] HospitalZgidxajHIQOVZWXYWCM9321-47-78 07:38:00 Test Item Value Reference Range Interpretation Comments Chloride Lvl (test code = Chloride Lvl) 104 95-109 [facility] HospitalYxhlzanHKIRUIUQAV7093-62-00 07:38:00 Test Item Value Reference Range Interpretation Comments Lymphocytes # (test code = Lymphocytes 3.1 1.0-5.5 #) [facility] HospitalArmvofqCIZRQTYFNT0769-53-94 07:38:00 Test Item Value Reference Range Interpretation Comments Segs-Bands # (test code = Segs-Bands #) 6.7 1.5-8.1 [facility] HospitalEtfstyrRCVJUGAKTU3811-56-21 07:38:00 Test Item Value Reference Range Interpretation Comments Monocytes # (test code 0.8 See_Comment [Aut omated message] The = Monocytes #) system which generated this result tra nsmitted reference range : <=0.8. The reference r matthieu was not used to int erpret this result as normal/abnormal . [facility] HospitalFoomdxvHIWXMXRJPS7112-74-99 07:38:00 Test Item Value Reference Range Interpretation Comments Basophils (test code = 0.6 See_Comment [Aut omated message] The Basophils) system which ge nerated this result tra nsmitted reference range : <=1.0. The reference r matthieu was not used to int erpret this result as normal/abnormal . [facility] HospitalXgunhboCZWOTHCMIZ5712-50-45 07:38:00 Test Item Value Reference Range Interpretation Comments Monocytes (test code = Monocytes) 7.2 2.0-12.0 [facility] HospitalArkthmpNMCNAWRMBW9898-78-68 07:38:00 Test Item Value Reference Range Interpretation Comments Eosinophils # (test code 0.3 See_Comment [A utomated message] The = Eosinophils #) system whic h generated this result tra nsmitted reference range : <=0.5. The reference r matthieu was not used to int erpret this result as normal/abnormal . [facility] HospitalRhvkoxpUVHGTBKPIX8376-78-67 07:38:00 Test Item Value Reference Range Interpretation Comments Basophils # (test code 0.1 See_Comment [Aut omated message] The = Basophils #) system which generated this result tra nsmitted reference range : <=0.2. The reference r matthieu was not used to int erpret this result as normal/abnormal . [facility] HospitalIuirjjmZKKZHVJDCT2573-94-99 07:38:00 Test Item Value Reference Range Interpretation Comments Microcyte (test code = 1+ *ABN*(06/28/17 Microcyte) 2:38 AM) [facility] HospitalMlothykFUPNLVJWEO6386-68-10 07:38:00 Test Item Value Reference Range Interpretation Comments Segs (test code = Segs) 61.0 45.0-75.0 [facility] HospitalOerwzyoKHZWJUIATA2856-90-47 07:38:00 Test Item Value Reference Range Interpretation Comments Lymphocytes (test code = Lymphocytes) 28.4 20.0-40.0 [facility] HospitalNxxgyhhYHBZAXRZBM4735-95-49 07:38:00 Test Item Value Reference Range Interpretation Comments Eosinophils (test code = 2.8 See_Comment [A utomated message] The Eosinophils) system which ge nerated this result tra nsmitted reference range : <=4.0. The reference r matthieu was not used to int erpret this result as normal/abnormal . [facility] HospitalEhdmghtDOYOCSRFQN1426-03-46 07:38:00 Test Item Value Reference Range Interpretation Comments MPV (test code = MPV) 9.2 7.4-10.4 [facility] HospitalRgwvuftZWKBFNNBBL7562-94-17 07:38:00 Test Item Value Reference Range Interpretation Comments Platelet (test code = Platelet) 234 133-450 [facility] HospitalMjkzttqABQMVNVARX6135-44-25 07:38:00 Test Item Value Reference Range Interpretation Comments MCH (test code = MCH) 24.8 pg 27.0-31.0 [facility] HospitalIywxrwdJQSMANVDLK4521-14-23 07:38:00 Test Item Value Reference Range Interpretation Comments Hct (test code = Hct) 44.6 42.0-54.0 [facility] Hospit[id number] 07:38:00 Test Item Value Reference Range Interpretation Comments MCV (test code = MCV) 77.6 80.0-94.0 [facility] HospitalMxzwcyvRBNACCZGIM2471-30-98 07:38:00 Test Item Value Reference Range Interpretation Comments RDW (test code = RDW) 17.1 11.5-14.5 [facility]JactutxBXIXIANXEE9924-04-60 07:38:00 Test Item Value Reference Range Interpretation Comments MCHC (test code = MCHC) 32.0 32.0-36.0 [facility] HospitalJecnnuwITFMOHKIOI8841-88-08 07:38:00 Test Item Value Reference Range Interpretation Comments WBC (test code = WBC) 11.0 3.7-10.4 [facility] HospitalGadpvykSJUOWPJTZD1853-51-23 07:38:00 Test Item Value Reference Range Interpretation Comments Hgb (test code = Hgb) 14.2 14.0-18.0 [facility] HospitalOsjytjdDDAMVZQZJZ3492-47-83 07:38:00 Test Item Value Reference Range Interpretation Comments RBC (test code = RBC) 5.75 4.70-6.10 [facility] HospitalCHEM [id number] 09:51:00 Test Item Value Reference Range Interpretation Comments Phosphorus (test code = Phosphorus) 3.7 2.5-4.5 [facility]RkjxsttQNVNQXWQQW1420-19-01 09:51:00 Test Item Value Reference Range Interpretation Comments HIV Ag/Ab 4th Gen Negative *NA*(06/27/17 (test code = HIV 4:51 AM) Ag/Ab 4th Gen) [facility] CenterSzdryjiHOPDIPGDTW9114-98-57 09:51:00 Test Item Value Reference Range Interpretation Comments Treponemal Ab (test code Non Reactive = Treponemal Ab) *NA*(06/27/17 4:51 AM) [facility]2018-04-10 09:57:00 Test Item Value Reference Range Interpretation Comments Phosphorus (test code = Phosphorus) 3.2 2.5-4.5 [place] [id number] 09:57:00 Test Item Value Reference Range Interpretation Comments Magnesium Lvl (test code = Magnesium 2.0 1.8-2.4 Lvl) [place] 529738-04-10 09:57:00 Test Item Value Reference Range Interpretation Comments eGFR (test code = eGFR) 114 [place] 529738-04-10 09:57:00 Test Item Value Reference Range Interpretation Comments BUN (test code = BUN) 9 7-22 [place] 529738-04-10 09:57:00 Test Item Value Reference Range Interpretation Comments Creatinine Lvl (test code = Creatinine 0.70 0.50-1.40 Lvl) [place] 529738-04-10 09:57:00 Test Item Value Reference Range Interpretation Comments Glucose Lvl (test code = Glucose Lvl) 133 70-99 [place] 529738-04-10 09:57:00 Test Item Value Reference Range Interpretation Comments Sodium Lvl (test code = Sodium Lvl) 138 135-145 [facility]2018-04-10 09:57:00 Test Item Value Reference Range Interpretation Comments Potassium Lvl (test code = Potassium 3.6 3.5-5.1 Lvl) [facility]2018-04-10 09:57:00 Test Item Value Reference Range Interpretation Comments ALT (test code = ALT) 53 See_Comment [Auto mated message] The system which ge nerated this result transmit yanely reference range : <=65. The reference range was not used to interpr et this result as brielle l/abnormal. [place] 529738-04-10 09:57:00 Test Item Value Reference Range Interpretation Comments AST (test code = AST) 44 See_Comment [Auto mated message] The system which ge nerated this result transmit yanely reference range : <=37. The reference range was not used to interpr et this result as brielle l/abnormal. [place] 529738-04-10 09:57:00 Test Item Value Reference Range Interpretation Comments Albumin Lvl (test code = Albumin Lvl) 3.5 3.5-5.0 [facility]2018-04-10 09:57:00 Test Item Value Reference Range Interpretation Comments Calcium Lvl (test code = Calcium Lvl) 8.6 8.5-10.5 [facility]2018-04-10 09:57:00 Test Item Value Reference Range Interpretation Comments Total Protein (test code = Total 7.9 6.4-8.4 Protein) [facility]2018-04-10 09:57:00 Test Item Value Reference Range Interpretation Comments Chloride Lvl (test code = Chloride Lvl) 104 95-109 [facility]2018-04-10 09:57:00 Test Item Value Reference Range Interpretation Comments CO2 (test code = CO2) 27 24-32 [facility]2018-04-10 09:57:00 Test Item Value Reference Range Interpretation Comments Alk Phos (test code = Alk Phos) 96 39-136 [facility]2018-04-10 09:57:00 Test Item Value Reference Range Interpretation Comments Bili Total (test code = Bili Total) 0.4 0.2-1.3 [facility]2018-04-10 09:57:00 Test Item Value Reference Range Interpretation Comments A/G Ratio (test code = A/G Ratio) 0.8 1 0.7-1.6 [facility]2018-04-10 09:57:00 Test Item Value Reference Range Interpretation Comments Globulin (test code = Globulin) 4.4 2.7-4.2 [facility]2018-04-10 09:57:00 Test Item Value Reference Range Interpretation Comments B/C Ratio (test code = B/C Ratio) 13 1 6-25 [facility]2018-04-10 09:57:00 Test Item Value Reference Range Interpretation Comments AGAP (test code = AGAP) 10.6 10.0-20.0 [facility] HospitalJanghuzFZWBFGMEWE7110-73-88 09:57:00 Test Item Value Reference Range Interpretation Comments Eosinophils # (test code 0.2 See_Comment [A utomated message] The = Eosinophils #) system whic h generated this result tra nsmitted reference range : <=0.5. The reference r matthieu was not used to int erpret this result as normal/abnormal . [facility] HospitalNrgzrzlXHECLJOQLV6379-35-36 09:57:00 Test Item Value Reference Range Interpretation Comments Basophils # (test code 0.1 See_Comment [Aut omated message] The = Basophils #) system which generated this result tra nsmitted reference range : <=0.2. The reference r matthieu was not used to int erpret this result as normal/abnormal . [facility] HospitalIrbntyiFUCTFLNLPY5790-95-87 09:57:00 Test Item Value Reference Range Interpretation Comments Segs-Bands # (test code = Segs-Bands #) 6.4 1.5-8.1 [facility] HospitalPzhvxhdANCJNPQRSM6654-09-00 09:57:00 Test Item Value Reference Range Interpretation Comments Lymphocytes # (test code = Lymphocytes 3.0 1.0-5.5 #) [facility] HospitalBivgextTOLXSVYENT6747-74-51 09:57:00 Test Item Value Reference Range Interpretation Comments Monocytes # (test code 0.9 See_Comment [Aut omated message] The = Monocytes #) system which generated this result tra nsmitted reference range : <=0.8. The reference r matthieu was not used to int erpret this result as normal/abnormal . [facility] HospitalWnsqsmgFOJVPEVVZO8622-88-29 09:57:00 Test Item Value Reference Range Interpretation Comments Microcyte (test code = 1+ *ABN*(06/26/17 Microcyte) 4:57 AM) [facility] HospitalUbzthceXWYLBFNJHF0734-38-14 09:57:00 Test Item Value Reference Range Interpretation Comments Segs (test code = Segs) 60.4 45.0-75.0 [facility] HospitalRiuochiQPGKCHWTFR5307-50-21 09:57:00 Test Item Value Reference Range Interpretation Comments Lymphocytes (test code = Lymphocytes) 28.2 20.0-40.0 [facility] HospitalZtynabtIGXQUAZUMY2545-86-12 09:57:00 Test Item Value Reference Range Interpretation Comments Basophils (test code = 0.5 See_Comment [Aut omated message] The Basophils) system which ge nerated this result tra nsmitted reference range : <=1.0. The reference r matthieu was not used to int erpret this result as normal/abnormal . [facility] HospitalTcbdacqALMZOLNCHP2722-62-34 09:57:00 Test Item Value Reference Range Interpretation Comments Monocytes (test code = Monocytes) 8.6 2.0-12.0 [facility] HospitalVbjuzidAYNZKAPLOO9292-93-01 09:57:00 Test Item Value Reference Range Interpretation Comments Eosinophils (test code = 2.3 See_Comment [A utomated message] The Eosinophils) system which ge nerated this result tra nsmitted reference range : <=4.0. The reference r matthieu was not used to int erpret this result as normal/abnormal . [facility] HospitalNqdrtxzQJOWZURALR6394-00-49 09:57:00 Test Item Value Reference Range Interpretation Comments MCH (test code = MCH) 25.3 pg 27.0-31.0 [facility] HospitalXhjfvidROYVUTSLPR9038-62-84 09:57:00 Test Item Value Reference Range Interpretation Comments MCHC (test code = MCHC) 32.8 32.0-36.0 [facility] HospitalPdrbbauRMIDCREIGO3801-54-31 09:57:00 Test Item Value Reference Range Interpretation Comments MPV (test code = MPV) 8.9 7.4-10.4 [facility] HospitalToyanixVBUCPBXUDS1552-03-23 09:57:00 Test Item Value Reference Range Interpretation Comments RDW (test code = RDW) 16.7 11.5-14.5 [facility] HospitalHnyajfxVAUTAHACII9505-60-53 09:57:00 Test Item Value Reference Range Interpretation Comments Platelet (test code = Platelet) 220 133-450 [facility] HospitalQzssluwWZXKLJSVXS0619-65-85 09:57:00 Test Item Value Reference Range Interpretation Comments Hct (test code = Hct) 42.2 42.0-54.0 [facility] HospitalExcyxhoCBJECOHRUJ6602-76-62 09:57:00 Test Item Value Reference Range Interpretation Comments MCV (test code = MCV) 77.3 80.0-94.0 [facility] HospitalXrbgsdfVQZVVVOKQK6480-73-94 09:57:00 Test Item Value Reference Range Interpretation Comments RBC (test code = RBC) 5.46 4.70-6.10 [facility] HospitalOwdixajDXYPDULKGW1942-57-26 09:57:00 Test Item Value Reference Range Interpretation Comments Hgb (test code = Hgb) 13.8 14.0-18.0 [facility] HospitalOgqecxgUPGZHZNLBN8580-89-82 09:57:00 Test Item Value Reference Range Interpretation Comments WBC (test code = WBC) 10.5 3.7-10.4 [facility] HospitalWrhfxylZFESOCIMFQ1817-59-50 09:57:00 Test Item Value Reference Range Interpretation Comments HIV Ag/Ab 4th Gen Negative *NA*(06/26/17 (test code = HIV 4:57 AM) Ag/Ab 4th Gen) [facility] GWKWTGN3228-88-13 09:57:00 Test Item Value Reference Range Interpretation Comments Ca Ion WB (test code = Ca Ion WB) 1.03 1.05-1.25 [facility] [id number] 09:57:00 Test Item Value Reference Range Interpretation Comments Ca Norm WB (test code = Ca Norm WB) 1.01 1.05-1.25 [facility] [id number] 18:23:00 Test Item Value Reference Range Interpretation Comments U Propoxyph Scr (test Negative *NA*(06/25/17 code = U Propoxyph Scr) 1:23 PM) [facility] [id number] 18:23:00 Test Item Value Reference Range Interpretation Comments U Methadone Scr (test Negative *NA*(06/25/17 code = U Methadone Scr) 1:23 PM) [facility] [id number] 18:23:00 Test Item Value Reference Range Interpretation Comments U Phencyc Scr (test Negative *NA*(06/25/17 code = U Phencyc Scr) 1:23 PM) [facility] [id number] 18:23:00 Test Item Value Reference Range Interpretation Comments UDS Note (test code = See Note (06/25/17 1:23 UDS Note) PM) [facility] [id number] 18:23:00 Test Item Value Reference Range Interpretation Comments U Stephanie Scr (test code Negative *NA*(06/25/17 = U Stephanie Scr) 1:23 PM) [facility] [id number] 18:23:00 Test Item Value Reference Range Interpretation Comments U Cocaine Scr (test Negative *NA*(06/25/17 code = U Cocaine Scr) 1:23 PM) [facility] [id number] 18:23:00 Test Item Value Reference Range Interpretation Comments U Benzodia Scr (test Negative *NA*(06/25/17 code = U Benzodia Scr) 1:23 PM) [facility] MNKQIF9517-97-13 18:23:00 Test Item Value Reference Range Interpretation Comments U Amph Scr (test code Negative *NA*(06/25/17 = U Amph Scr) 1:23 PM) [facility] EVHTAK7974-01-17 18:23:00 Test Item Value Reference Range Interpretation Comments U Opiate Scr (test Negative *NA*(06/25/17 code = U Opiate Scr) 1:23 PM) [facility] [id number] 18:23:00 Test Item Value Reference Range Interpretation Comments U Cannab Scr (test Positive *ABN*(06/25/17 code = U Cannab Scr) 1:23 PM) [facility] [id number] 18:23:00 Test Item Value Reference Range Interpretation Comments UA Urobilinogen (test code = UA 2.0 0.1-1.0 Urobilinogen) [facility] [id number] 18:23:00 Test Item Value Reference Range Interpretation Comments UA Nitrite (test code Negative (06/25/17 1:23 = UA Nitrite) PM) [facility] [id number] 18:23:00 Test Item Value Reference Range Interpretation Comments UA Leuk Est (test Negative (06/25/17 1:23 code = UA Leuk Est) PM) [facility] [id number] 18:23:00 Test Item Value Reference Range Interpretation Comments UA WBC (test code = 1 See_Comment [Automa yanely message] The UA WBC) system which ge nerated this result transmit yanely reference range : <=5. The reference range was not used to interpr et this result as brielle l/abnormal. [facility] [id number] 18:23:00 Test Item Value Reference Range Interpretation Comments UA Bacteria (test code = UA Few /HPF Bacteria) [facility] [id number] 18:23:00 Test Item Value Reference Range Interpretation Comments UA Mucus (test code = UA Mucus) Many /LPF [facility] [id number] 18:23:00 Test Item Value Reference Range Interpretation Comments UA Sq Epi (test code = UA Sq Epi) None Seen [facility] [id number] 18:23:00 Test Item Value Reference Range Interpretation Comments UA Bili (test code = Negative *NA*(06/25/17 UA Bili) 1:23 PM) [facility] AND [id number] 18:23:00 Test Item Value Reference Range Interpretation Comments UA Ketones (test code = UA Negative mg/dL Ketones) [facility] AND [id number] 18:23:00 Test Item Value Reference Range Interpretation Comments UA Blood (test code = Negative (06/25/17 1:23 UA Blood) PM) [facility] AND [id number] 18:23:00 Test Item Value Reference Range Interpretation Comments UA Turbidity (test code = Clear (06/25/17 1:23 UA Turbidity) PM) [facility] AND [id number] 18:23:00 Test Item Value Reference Range Interpretation Comments UA Color (test code = Yellow *NA*(06/25/17 1:23 UA Color) PM) [facility] AND [id number] 18:23:00 Test Item Value Reference Range Interpretation Comments UA Spec Grav (test code = UA Spec 1.022 1 Grav) [facility] AND [id number] 18:23:00 Test Item Value Reference Range Interpretation Comments UA Protein (test code = UA Protein) 20 mg/dL [facility] AND [id number] 18:23:00 Test Item Value Reference Range Interpretation Comments UA pH (test code = UA pH) 5.5 1 5.0-8.0 [facility] AND [id number] 18:23:00 Test Item Value Reference Range Interpretation Comments UA Glucose (test code = UA Glucose) 70 mg/dL [facility] [id number] 17:07:00 Test Item Value Reference Range Interpretation Comments Troponin-I (test code no gt See_Comment [Auto mated message] The = Troponin-I) system which g enerated this result transmit yanely reference range : <=0.40. The reference r matthieu was not used to interpr et this result as brielle l/abnormal. [facility]AC [id number] 17:07:00 Test Item Value Reference Range Interpretation Comments BNP (test code = BNP) 5 [facility] HospitalCARD[facility]AC [id number] 17:07:00 Test Item Value Reference Range Interpretation Comments Troponin-T (test code no gt See_Comment [Auto mated message] The = Troponin-T) system which g enerated this result transmit yanely reference range : <=0.100. The reference r matthieu was not used to interpr et this result as brielle l/abnormal. [facility] HospitalIexhggeBOCBHQKSUN6619-14-56 17:07:00 Test Item Value Reference Range Interpretation Comments D-Dimer (test code = D-Dimer) 0.27 [facility] HospitalBoerebsVCQNIKYYQZ8788-36-24 17:07:00 Test Item Value Reference Range Interpretation Comments HIV Ag/Ab 4th Gen Negative *NA*(06/25/17 (test code = HIV 12:07 PM) Ag/Ab 4th Gen) [facility] HospitalJioeaoeVEPPQYCAIN0723-73-10 17:07:00 Test Item Value Reference Range Interpretation Comments Treponemal Ab (test code Non Reactive = Treponemal Ab) *NA*(06/25/17 12:07 PM) [facility] HospitalSarn[facility] [id number] 13:42:00 Test Item Value Reference Range Interpretation Comments eGFR (test code = eGFR) 104 [facility] [id number] 13:42:00 Test Item Value Reference Range Interpretation Comments Sodium Lvl (test code = Sodium Lvl) 141 135-145 [facility]2018-04-08 13:42:00 Test Item Value Reference Range Interpretation Comments Potassium Lvl (test code = Potassium 4.1 3.5-5.1 Lvl) [facility]2018-04-08 13:42:00 Test Item Value Reference Range Interpretation Comments Chloride Lvl (test code = Chloride Lvl) 102 95-109 [facility] [id number] 13:42:00 Test Item Value Reference Range Interpretation Comments CO2 (test code = CO2) 24 24-32 [facility] [id number] 13:42:00 Test Item Value Reference Range Interpretation Comments AST (test code = AST) 48 See_Comment [Auto mated message] The system which ge nerated this result transmit yanely reference range : <=37. The reference range was not used to interpr et this result as brielle l/abnormal. [facility]App[facility] [id number] 13:42:00 Test Item Value Reference Range Interpretation Comments Albumin Lvl (test code = Albumin Lvl) 3.2 3.5-5.0 [facility]2018-04-08 13:42:00 Test Item Value Reference Range Interpretation Comments ALT (test code = ALT) 54 See_Comment [Auto mated message] The system which ge nerated this result transmit yanely reference range : <=65. The reference range was not used to interpr et this result as brielle l/abnormal. [facility]2018-04-08 13:42:00 Test Item Value Reference Range Interpretation Comments Total Protein (test code = Total 7.6 6.4-8.4 Protein) [facility]2018-04-08 13:42:00 Test Item Value Reference Range Interpretation Comments Calcium Lvl (test code = Calcium Lvl) 8.3 8.5-10.5 [facility]2018-04-08 13:42:00 Test Item Value Reference Range Interpretation Comments Bili Total (test code = Bili Total) 0.3 0.2-1.3 [facility]2018-04-08 13:42:00 Test Item Value Reference Range Interpretation Comments Alk Phos (test code = Alk Phos) 106 39-136 [facility]2018-04-08 13:42:00 Test Item Value Reference Range Interpretation Comments Glucose Lvl (test code = Glucose Lvl) 259 70-99 [facility]2018-04-08 13:42:00 Test Item Value Reference Range Interpretation Comments Creatinine Lvl (test code = Creatinine 0.87 0.50-1.40 Lvl) [facility]2018-04-08 13:42:00 Test Item Value Reference Range Interpretation Comments BUN (test code = BUN) 11 7-22 [facility]2018-04-08 13:42:00 Test Item Value Reference Range Interpretation Comments AGAP (test code = AGAP) 19.1 10.0-20.0 [facility]2018-04-08 13:42:00 Test Item Value Reference Range Interpretation Comments A/G Ratio (test code = A/G Ratio) 0.7 1 0.7-1.6 [facility]2018-04-08 13:42:00 Test Item Value Reference Range Interpretation Comments Globulin (test code = Globulin) 4.4 2.7-4.2 [place] [id number] 13:42:00 Test Item Value Reference Range Interpretation Comments B/C Ratio (test code = B/C Ratio) 13 1 6-25 [facility] Hospit[id number] 13:42:00 Test Item Value Reference Range Interpretation Comments Hgb (test code = Hgb) 14.6 14.0-18.0 [facility] Hospit[id number] 13:42:00 Test Item Value Reference Range Interpretation Comments MCV (test code = MCV) 77.8 80.0-94.0 [facility] HospitalBupkagkNXXIBHUROP5577-86-92 13:42:00 Test Item Value Reference Range Interpretation Comments Hct (test code = Hct) 45.1 42.0-54.0 [facility] HospitalNacqgkhCLDNKJCRUU2854-56-20 13:42:00 Test Item Value Reference Range Interpretation Comments MPV (test code = MPV) 9.2 7.4-10.4 [facility] HospitalDhgqktiLEVBPZFEOV0460-98-32 13:42:00 Test Item Value Reference Range Interpretation Comments MCHC (test code = MCHC) 32.4 32.0-36.0 [facility] HospitalYqvmbhyTYRPQXHYAM7820-95-69 13:42:00 Test Item Value Reference Range Interpretation Comments MCH (test code = MCH) 25.2 pg 27.0-31.0 [facility] HospitalEdffusqAKLUMSKPZT7086-50-91 13:42:00 Test Item Value Reference Range Interpretation Comments RBC (test code = RBC) 5.80 4.70-6.10 [facility] HospitalYtkvrqjJISXHBQEDV7791-52-10 13:42:00 Test Item Value Reference Range Interpretation Comments WBC (test code = WBC) 13.2 3.7-10.4 [facility] HospitalVvrivqsKYOOKALOMS7267-20-40 13:42:00 Test Item Value Reference Range Interpretation Comments RDW (test code = RDW) 17.6 11.5-14.5 [facility] HospitalCuzwfzqKTWPJFTOIO9404-00-87 13:42:00 Test Item Value Reference Range Interpretation Comments Platelet (test code = Platelet) 234 133-450 [facility] HospitalSwkknxjNFEIAKMBBB4241-34-94 13:42:00 Test Item Value Reference Range Interpretation Comments Hypochrom (test code = 1+ (06/24/17 8:42 AM) Hypochrom) [facility] HospitalVzamgltUBMSGTIYAG6825-65-70 13:42:00 Test Item Value Reference Range Interpretation Comments Large Plt (test code = Large Plt) Slight [facility] Ho[id number] 13:42:00 Test Item Value Reference Range Interpretation Comments Anisocyte (test code = 1+ *ABN*(06/24/17 8:42 Anisocyte) AM) [facility] HospitalAljpeuwOKBNLBPGHM3354-37-24 13:42:00 Test Item Value Reference Range Interpretation Comments Atypical Lymphs (test code = Atypical 0.0 Lymphs) [facility] HospitalCxxoscjNMPOQDZCMS8135-59-53 13:42:00 Test Item Value Reference Range Interpretation Comments Microcyte (test code = 1+ *ABN*(06/24/17 8:42 Microcyte) AM) [facility] HospitalXzyoonwGXOUFDUPPW4651-92-60 13:42:00 Test Item Value Reference Range Interpretation Comments Eosinophils (test code = 3.0 See_Comment [A utomated message] The Eosinophils) system which ge nerated this result tra nsmitted reference range : <=4.0. The reference r matthieu was not used to int erpret this result as normal/abnormal . [facility] HospitalPhfmmtoZBULSICSLZ9655-81-47 13:42:00 Test Item Value Reference Range Interpretation Comments Monocytes (test code = Monocytes) 7.0 2.0-12.0 [facility] HospitalTsoexdvZUODHUMVDV9576-52-86 13:42:00 Test Item Value Reference Range Interpretation Comments Segs-Bands # (test code = Segs-Bands #) 9.6 1.5-8.1 [facility] HospitalEnkioahVLPXNAWEMC2660-08-48 13:42:00 Test Item Value Reference Range Interpretation Comments Lymphocytes # (test code = Lymphocytes 2.2 1.0-5.5 #) [facility] HospitalGpxmignPVMAARBGTU6112-44-15 13:42:00 Test Item Value Reference Range Interpretation Comments Bands (test code = 1.0 See_Comment [Automat ed message] The Bands) system which ge nerated this result transmit yanely reference range : <=11.0. The reference r matthieu was not used to interpr et this result as brielle l/abnormal. [facility] HospitalDnqjfelACVDHDEHEU6415-56-90 13:42:00 Test Item Value Reference Range Interpretation Comments Segs (test code = Segs) 72.0 45.0-75.0 [facility] H[id number] 13:42:00 Test Item Value Reference Range Interpretation Comments Lymphocytes (test code = Lymphocytes) 17.0 20.0-40.0 [id number] 13:42:00 Test Item Value Reference Range Interpretation Comments Eosinophils # (test code 0.4 See_Comment [A utomated message] The = Eosinophils #) system whic h generated this result tra nsmitted reference range : <=0.5. The reference r matthieu was not used to int erpret this result as normal/abnormal . [facility] CenterEvlskikKMGKDUELVB6522-25-84 13:42:00 Test Item Value Reference Range Interpretation Comments Monocytes # (test code 0.9 See_Comment [Aut omated message] The = Monocytes #) system which generated this result tra nsmitted reference range : <=0.8. The reference r matthieu was not used to int erpret this result as normal/abnormal . [facility] CenterRzffvxzDAKIRQEEKP8778-76-14 05:41:00 Test Item Value Reference Range Interpretation Comments Treponemal Ab (test code Non Reactive = Treponemal Ab) *NA*(06/24/17 12:41 AM) [facility] CenterNmtgvdlWJGFCT0881-72-09 05:41:00 Test Item Value Reference Range Interpretation Comments CHD Risk (test code = CHD Risk) 6.88 1 4.00-7.30 [facility] [id number] 05:41:00 Test Item Value Reference Range Interpretation Comments LDL (Calculated) (test code = LDL 80 (Calculated)) [facility] CenterQwcyxunAXTPTD8536-73-89 05:41:00 Test Item Value Reference Range Interpretation Comments VLDL (test code = VLDL) 67 1 [facility] [id number] 05:41:00 Test Item Value Reference Range Interpretation Comments HDL (test code = HDL) 25 [facility] OoivdbvIKOXMQ1099-68-35 05:41:00 Test Item Value Reference Range Interpretation Comments Chol (test code = Chol) 172 [facility] CenterDowsqpnFULVXW4640-53-12 05:41:00 Test Item Value Reference Range Interpretation Comments Trig (test code = Trig) 335 [facility] OZVTBHYWF9215-26-89 05:41:00 Test Item Value Reference Range Interpretation Comments Hgb A1C (test code = Hgb A1C) 8.6 [facility] [id number] 10:05:00 Test Item Value Reference Range Interpretation Comments Troponin-I (test code 0.23 See_Comment [Auto mated message] The = Troponin-I) system which g enerated this result transmit yanely reference range : <=0.40. The reference r matthieu was not used to interpr et this result as brielle l/abnormal. [facility] [id number] 10:05:00 Test Item Value Reference Range Interpretation Comments Magnesium Lvl (test code = Magnesium 1.9 1.8-2.4 Lvl) [facility]2017-09-30 10:05:00 Test Item Value Reference Range Interpretation Comments Glucose Lvl (test code = Glucose Lvl) 131 70-99 [facility]2017-09-30 10:05:00 Test Item Value Reference Range Interpretation Comments Potassium Lvl (test code = Potassium 3.1 3.5-5.1 Lvl) [facility]2017-09-30 10:05:00 Test Item Value Reference Range Interpretation Comments Sodium Lvl (test code = Sodium Lvl) 136 135-145 [facility] [id number] 10:05:00 Test Item Value Reference Range Interpretation Comments Creatinine Lvl (test code = Creatinine 0.68 0.50-1.40 Lvl) [facility]2017-09-30 10:05:00 Test Item Value Reference Range Interpretation Comments BUN (test code = BUN) 8 7-22 [facility]2017-09-30 10:05:00 Test Item Value Reference Range Interpretation Comments Chloride Lvl (test code = Chloride Lvl) 101 95-109 [facility] [id number] 10:05:00 Test Item Value Reference Range Interpretation Comments Calcium Lvl (test code = Calcium Lvl) 8.5 8.5-10.5 [facility] [id number] 10:05:00 Test Item Value Reference Range Interpretation Comments CO2 (test code = CO2) 26 24-32 [facility]2017-09-30 10:05:00 Test Item Value Reference Range Interpretation Comments AGAP (test code = AGAP) 12.1 10.0-20.0 [facility]2017-09-30 10:05:00 Test Item Value Reference Range Interpretation Comments eGFR (test code = eGFR) 116 [facility]annCHEM [id number] 09:15:00 Test Item Value Reference Range Interpretation Comments Lactic Acid Lvl (test code = Lactic 0.7 0.5-2.2 Acid Lvl) [facility] AND [id number] 06:47:00 Test Item Value Reference Range Interpretation Comments UA Glucose (test code Negative (12/16/16 1:47 = UA Glucose) AM) [facility] AND [id number] 06:47:00 Test Item Value Reference Range Interpretation Comments UA Color (test code = Yellow *NA*(12/16/16 UA Color) 1:47 AM) [facility] AND [id number] 06:47:00 Test Item Value Reference Range Interpretation Comments UA Bili (test code = Negative *NA*(12/16/16 UA Bili) 1:47 AM) [facility] AND [id number] 06:47:00 Test Item Value Reference Range Interpretation Comments UA Nitrite (test code Negative (12/16/16 1:47 = UA Nitrite) AM) [facility] AND [id number] 06:47:00 Test Item Value Reference Range Interpretation Comments UA Urobilinogen (test code = UA 0.2 0.1-1.0 Urobilinogen) [facility] AND [id number] 06:47:00 Test Item Value Reference Range Interpretation Comments UA Blood (test code = Trace *ABN*(12/16/16 UA Blood) 1:47 AM) [facility] AND [id number] 06:47:00 Test Item Value Reference Range Interpretation Comments UA Turbidity (test code = Clear (12/16/16 1:47 UA Turbidity) AM) [facility] AND [id number] 06:47:00 Test Item Value Reference Range Interpretation Comments UA Protein (test code Negative (12/16/16 1:47 = UA Protein) AM) [facility] AND [id number] 06:47:00 Test Item Value Reference Range Interpretation Comments UA Spec Grav (test code = UA Spec 1.022 1 Grav) [facility] AND [id number] 06:47:00 Test Item Value Reference Range Interpretation Comments UA Ketones (test code Negative *NA*(12/16/16 = UA Ketones) 1:47 AM) [facility] AND [id number] 06:47:00 Test Item Value Reference Range Interpretation Comments UA pH (test code = UA pH) 6.0 1 5.0-8.0 [facility] AND [id number] 06:47:00 Test Item Value Reference Range Interpretation Comments UA Leuk Est (test Negative (12/16/16 1:47 code = UA Leuk Est) AM) [facility] AND [id number] 06:47:00 Test Item Value Reference Range Interpretation Comments UA RBC (test code = 0-2 /HPF See_Comment [Automa yanely message] The UA RBC) system which ge nerated this result tra nsmitted reference range : <=2. The reference range was not used to interpr et this result as brielle l/abnormal. [facility] AND [id number] 06:47:00 Test Item Value Reference Range Interpretation Comments UA Sq Epi (test code = None Seen (12/16/16 1:47 UA Sq Epi) AM) [facility] AND [id number] 06:47:00 Test Item Value Reference Range Interpretation Comments UA WBC (test code = UA WBC) 0-2 /HPF [facility] AND [id number] 06:47:00 Test Item Value Reference Range Interpretation Comments UA Bacteria (test code = None Seen (12/16/16 UA Bacteria) 1:47 AM) [facility] [id number] 01:49:00 Test Item Value Reference Range Interpretation Comments Lipase Lvl (test code = Lipase Lvl) 130 73-393 [facility] [id number] 01:49:00 Test Item Value Reference Range Interpretation Comments AST (test code = AST) 23 See_Comment [Auto mated message] The system which ge nerated this result transmit yanely reference range : <=37. The reference range was not used to interpr et this result as brielle l/abnormal. [facility] [id number] 01:49:00 Test Item Value Reference Range Interpretation Comments Alk Phos (test code = Alk Phos) 94 39-136 [facility] [id number] 01:49:00 Test Item Value Reference Range Interpretation Comments Bili Total (test code = Bili Total) 0.5 0.2-1.3 [facility]2017-09-30 01:49:00 Test Item Value Reference Range Interpretation Comments Bili Direct (test code 0.1 See_Comment [Aut omated message] The = Bili Direct) system which generated this result tra nsmitted reference range : <=0.3. The reference r matthieu was not used to int erpret this result as brielle l/abnormal. [facility]2017-09-30 01:49:00 Test Item Value Reference Range Interpretation Comments Albumin Lvl (test code = Albumin Lvl) 3.6 3.5-5.0 [facility]2017-09-30 01:49:00 Test Item Value Reference Range Interpretation Comments ALT (test code = ALT) 17 See_Comment [Auto mated message] The system which ge nerated this result transmit yanely reference range : <=65. The reference range was not used to interpr et this result as brielle l/abnormal. [facility]2017-09-30 01:49:00 Test Item Value Reference Range Interpretation Comments Total Protein (test code = Total 8.7 6.4-8.4 Protein) [facility]2017-09-30 01:49:00 Test Item Value Reference Range Interpretation Comments A/G Ratio (test code = A/G Ratio) 0.7 0.7-1.6 [place] [id number] 01:49:00 Test Item Value Reference Range Interpretation Comments Bili Indirect (test 0.4 See_Comment [Automa yanely message] The code = Bili Indirect) system which generated this result tra nsmitted reference range : <=1.0. The reference r matthieu was not used to int erpret this result as normal/abnormal . [facility]2017-09-30 01:49:00 Test Item Value Reference Range Interpretation Comments Globulin (test code = Globulin) 5.1 2.7-4.2 [facility]2017-09-30 01:49:00 Test Item Value Reference Range Interpretation Comments Lactic Acid WB (test code = Lactic Acid 1.1 0.5-2.2 WB) [facility]2017-09-30 01:49:00 Test Item Value Reference Range Interpretation Comments eGFR (test code = eGFR) 105 [facility]2017-09-30 01:49:00 Test Item Value Reference Range Interpretation Comments Creatinine Lvl (test code = Creatinine 0.87 0.50-1.40 Lvl) [facility]2017-09-30 01:49:00 Test Item Value Reference Range Interpretation Comments Sodium Lvl (test code = Sodium Lvl) 134 135-145 [facility]2017-09-30 01:49:00 Test Item Value Reference Range Interpretation Comments Chloride Lvl (test code = Chloride Lvl) 100 95-109 [facility]2017-09-30 01:49:00 Test Item Value Reference Range Interpretation Comments Potassium Lvl (test code = Potassium 2.9 3.5-5.1 Lvl) [facility]2017-09-30 01:49:00 Test Item Value Reference Range Interpretation Comments CO2 (test code = CO2) 29 24-32 [facility]2017-09-30 01:49:00 Test Item Value Reference Range Interpretation Comments Calcium Lvl (test code = Calcium Lvl) 8.6 8.5-10.5 [facility]2017-09-30 01:49:00 Test Item Value Reference Range Interpretation Comments AGAP (test code = AGAP) 7.9 10.0-20.0 [facility]2017-09-30 01:49:00 Test Item Value Reference Range Interpretation Comments BUN (test code = BUN) 6 7-22 [facility]2017-09-30 01:49:00 Test Item Value Reference Range Interpretation Comments Glucose Lvl (test code = Glucose Lvl) 107 70-99 [facility] Ho[id number] 01:49:00 Test Item Value Reference Range Interpretation Comments MCH (test code = MCH) 24.2 pg 27.0-31.0 [facility] H[id number] 01:49:00 Test Item Value Reference Range Interpretation Comments MCV (test code = MCV) 75.5 80.0-94.0 [facility] H[id number] 01:49:00 Test Item Value Reference Range Interpretation Comments Hgb (test code = Hgb) 15.3 14.0-18.0 [facility] H[id number] 01:49:00 Test Item Value Reference Range Interpretation Comments Hct (test code = Hct) 47.6 42.0-54.0 [facility] HospitalKjhxdygBBTDXDTKCE8106-11-72 01:49:00 Test Item Value Reference Range Interpretation Comments WBC (test code = WBC) 12.7 3.7-10.4 [facility] H[id number] 01:49:00 Test Item Value Reference Range Interpretation Comments RBC (test code = RBC) 6.31 4.70-6.10 [facility] Hosp[id number] 01:49:00 Test Item Value Reference Range Interpretation Comments MPV (test code = MPV) 8.2 7.4-10.4 [facility] H[id number] 01:49:00 Test Item Value Reference Range Interpretation Comments MCHC (test code = MCHC) 32.1 32.0-36.0 [facility] HospitalJranhiyYWHXRSUKCE8719-52-61 01:49:00 Test Item Value Reference Range Interpretation Comments RDW (test code = RDW) 16.4 11.5-14.5 [facility] HospitalIdfyzkiFWYKBZMCQE2390-78-38 01:49:00 Test Item Value Reference Range Interpretation Comments Platelet (test code = Platelet) 256 133-450 [facility] H[id number] 01:49:00 Test Item Value Reference Range Interpretation Comments Eosinophils (test code = 0.6 See_Comment [A utomated message] The Eosinophils) system which ge nerated this result tra nsmitted reference range : <=4.0. The reference r matthieu was not used to int erpret this result as normal/abnormal . [facility] HospitalEetkiykWCKPYYFCBF9772-23-50 01:49:00 Test Item Value Reference Range Interpretation Comments Basophils (test code = 0.5 See_Comment [Aut omated message] The Basophils) system which ge nerated this result tra nsmitted reference range : <=1.0. The reference r matthieu was not used to int erpret this result as normal/abnormal . [facility] HospitalAtruwryLPZOCAHVUP1581-74-50 01:49:00 Test Item Value Reference Range Interpretation Comments Segs-Bands # (test code = Segs-Bands #) 9.3 1.5-8.1 [facility] H[id number] 01:49:00 Test Item Value Reference Range Interpretation Comments Lymphocytes # (test code = Lymphocytes 1.9 1.0-5.5 #) [facility] H[id number] 01:49:00 Test Item Value Reference Range Interpretation Comments Microcyte (test code = 1+ *ABN*(12/15/16 Microcyte) 8:49 PM) [facility] H[id number] 01:49:00 Test Item Value Reference Range Interpretation Comments Monocytes # (test code 1.3 See_Comment [Aut omated message] The = Monocytes #) system which generated this result tra nsmitted reference range : <=0.8. The reference r matthieu was not used to int erpret this result as normal/abnormal . [facility] HospitalApkctliDSQKKTZZHS5497-71-30 01:49:00 Test Item Value Reference Range Interpretation Comments Eosinophils # (test code 0.1 See_Comment [A utomated message] The = Eosinophils #) system whic h generated this result tra nsmitted reference range : <=0.5. The reference r matthieu was not used to int erpret this result as normal/abnormal . [facility] Hospit[id number] 01:49:00 Test Item Value Reference Range Interpretation Comments Basophils # (test code 0.1 See_Comment [Aut omated message] The = Basophils #) system which generated this result tra nsmitted reference range : <=0.2. The reference r matthieu was not used to int erpret this result as normal/abnormal . [facility] H[id number] 01:49:00 Test Item Value Reference Range Interpretation Comments Monocytes (test code = Monocytes) 10.4 2.0-12.0 [facility] HospitalZeaixzyDPQTSPJVPL5270-11-03 01:49:00 Test Item Value Reference Range Interpretation Comments Segs (test code = Segs) 73.4 45.0-75.0 [facility] HospitalRuewfpuISVFCXDHYV9194-71-11 01:49:00 Test Item Value Reference Range Interpretation Comments Lymphocytes (test code = Lymphocytes) 15.1 20.0-40.0 [facility]2017-04-24 09:44:00 Test Item Value Reference Range Interpretation Comments eGFR (test code = eGFR) 128 [facility]2017-04-24 09:44:00 Test Item Value Reference Range Interpretation Comments Alk Phos (test code = Alk Phos) 87 39-136 [facility]2017-04-24 09:44:00 Test Item Value Reference Range Interpretation Comments Glucose Lvl (test code = Glucose Lvl) 55 70-99 [facility]2017-04-24 09:44:00 Test Item Value Reference Range Interpretation Comments AGAP (test code = AGAP) 14.3 10.0-20.0 [facility]2017-04-24 09:44:00 Test Item Value Reference Range Interpretation Comments Bili Total (test code = Bili Total) 0.2 0.2-1.3 [facility]2017-04-24 09:44:00 Test Item Value Reference Range Interpretation Comments B/C Ratio (test code = B/C Ratio) 19 6-25 [facility]2017-04-24 09:44:00 Test Item Value Reference Range Interpretation Comments ALT (test code = ALT) 43 See_Comment [Auto mated message] The system which ge nerated this result transmit yanely reference range : <=65. The reference range was not used to interpr et this result as brielle l/abnormal. [facility]2017-04-24 09:44:00 Test Item Value Reference Range Interpretation Comments AST (test code = AST) 34 See_Comment [Auto mated message] The system which ge nerated this result transmit yanely reference range : <=37. The reference range was not used to interpr et this result as brielle l/abnormal. [facility]2017-04-24 09:44:00 Test Item Value Reference Range Interpretation Comments Albumin Lvl (test code = Albumin Lvl) 3.1 3.5-5.0 [facility]2017-04-24 09:44:00 Test Item Value Reference Range Interpretation Comments Globulin (test code = Globulin) 4.6 2.7-4.2 [facility]2017-04-24 09:44:00 Test Item Value Reference Range Interpretation Comments A/G Ratio (test code = A/G Ratio) 0.7 0.7-1.6 [facility]2017-04-24 09:44:00 Test Item Value Reference Range Interpretation Comments BUN (test code = BUN) 10 7- [facility]2017-04-24 09:44:00 Test Item Value Reference Range Interpretation Comments Potassium Lvl (test code = Potassium 4.3 3.5-5.1 Lvl) [facility]2017-04-24 09:44:00 Test Item Value Reference Range Interpretation Comments Sodium Lvl (test code = Sodium Lvl) 136 135-145 [facility]2017-04-24 09:44:00 Test Item Value Reference Range Interpretation Comments Creatinine Lvl (test code = Creatinine 0.54 0.50-1.40 Lvl) [facility]2017-04-24 09:44:00 Test Item Value Reference Range Interpretation Comments Calcium Lvl (test code = Calcium Lvl) 8.9 8.5-10.5 [facility]2017-04-24 09:44:00 Test Item Value Reference Range Interpretation Comments Total Protein (test code = Total 7.7 6.4-8.4 Protein) [facility]2017-04-24 09:44:00 Test Item Value Reference Range Interpretation Comments CO2 (test code = CO2) 22 24-32 [facility]2017-04-24 09:44:00 Test Item Value Reference Range Interpretation Comments Chloride Lvl (test code = Chloride Lvl) 104 95-109 [facility] Hospit[id number] 09:44:00 Test Item Value Reference Range Interpretation Comments MPV (test code = MPV) 8.4 7.4-10.4 [facility] HospitalPhdgtyjMQIOUEZXYY1629-59-12 09:44:00 Test Item Value Reference Range Interpretation Comments Platelet (test code = Platelet) 310 133-450 [facility] HospitalBvvxrtfIVIMMTWDMZ6551-89-24 09:44:00 Test Item Value Reference Range Interpretation Comments RDW (test code = RDW) 16.0 11.5-14.5 [facility] H[id number] 09:44:00 Test Item Value Reference Range Interpretation Comments MCHC (test code = MCHC) 33.5 32.0-36.0 [facility] HospitalGrvdybrXXPYFSBJEO9071-61-32 09:44:00 Test Item Value Reference Range Interpretation Comments MCH (test code = MCH) 25.0 pg 27.0-31.0 [facility] HospitalKokxegsLWIVYSRYHF1701-08-22 09:44:00 Test Item Value Reference Range Interpretation Comments WBC (test code = WBC) 9.9 3.7-10.4 [facility] HospitalEazdgmdQGDIITYOSV8797-89-36 09:44:00 Test Item Value Reference Range Interpretation Comments Hgb (test code = Hgb) 13.6 14.0-18.0 [facility] HospitalMkpfbndDQMREGDXVD1891-05-82 09:44:00 Test Item Value Reference Range Interpretation Comments RBC (test code = RBC) 5.44 4.70-6.10 [facility] HospitalLidmojnHTRDTDSAGJ3266-36-58 09:44:00 Test Item Value Reference Range Interpretation Comments MCV (test code = MCV) 74.6 80.0-94.0 [facility] HospitalIwnwnrzVBRRRCJIEZ9296-26-99 09:44:00 Test Item Value Reference Range Interpretation Comments Hct (test code = Hct) 40.6 42.0-54.0 [facility] HospitalJbezclrDFQRKEIRDW2164-62-07 09:44:00 Test Item Value Reference Range Interpretation Comments Eosinophils (test code = 2.0 See_Comment [A utomated message] The Eosinophils) system which ge nerated this result tra nsmitted reference range : <=4.0. The reference r matthieu was not used to int erpret this result as normal/abnormal . [facility] HospitalEaxztapESXMPHKINR1142-12-75 09:44:00 Test Item Value Reference Range Interpretation Comments Basophils (test code = 0.5 See_Comment [Aut omated message] The Basophils) system which ge nerated this result tra nsmitted reference range : <=1.0. The reference r matthieu was not used to int erpret this result as normal/abnormal . [facility] HospitalRwtftguQYHYCFCPNF7920-47-64 09:44:00 Test Item Value Reference Range Interpretation Comments Monocytes (test code = Monocytes) 7.9 2.0-12.0 [facility] HospitalGmurjpaPYCDIBYVLZ4304-56-92 09:44:00 Test Item Value Reference Range Interpretation Comments Eosinophils # (test code 0.2 See_Comment [A utomated message] The = Eosinophils #) system whic h generated this result tra nsmitted reference range : <=0.5. The reference r matthieu was not used to int erpret this result as normal/abnormal . [facility] HospitalTievioeLMSSHPQUYQ8305-35-08 09:44:00 Test Item Value Reference Range Interpretation Comments Basophils # (test code 0.0 See_Comment [Aut omated message] The = Basophils #) system which generated this result tra nsmitted reference range : <=0.2. The reference r matthieu was not used to int erpret this result as normal/abnormal . [facility] HospitalJckzsxoTSNZDWEBGH0652-70-92 09:44:00 Test Item Value Reference Range Interpretation Comments Microcyte (test code = 2+ *ABN*(07/10/16 Microcyte) 4:44 AM) [facility] HospitalGgqrwyvJSURTKNKSA3420-64-27 09:44:00 Test Item Value Reference Range Interpretation Comments Lymphocytes # (test code = Lymphocytes 2.9 1.0-5.5 #) [facility] HospitalBdamrcnCBKCTJBNRS2684-99-21 09:44:00 Test Item Value Reference Range Interpretation Comments Monocytes # (test code 0.8 See_Comment [Aut omated message] The = Monocytes #) system which generated this result tra nsmitted reference range : <=0.8. The reference r matthieu was not used to int erpret this result as normal/abnormal . [facility] Hos[id number] 09:44:00 Test Item Value Reference Range Interpretation Comments Segs-Bands # (test code = Segs-Bands #) 6.0 1.5-8.1 [facility] HospitalAxvcxcrSMBVEWWYNJ5458-61-53 09:44:00 Test Item Value Reference Range Interpretation Comments Segs (test code = Segs) 60.7 45.0-75.0 [facility] HospitalClvofyxOLSUJPLSAT8481-03-47 09:44:00 Test Item Value Reference Range Interpretation Comments Lymphocytes (test code = Lymphocytes) 28.9 20.0-40.0 [facility] AND [id number] 18:36:00 Test Item Value Reference Range Interpretation Comments UA Glucose (test code Negative (07/04/16 1:36 = UA Glucose) PM) [facility] AND [id number] 18:36:00 Test Item Value Reference Range Interpretation Comments UA pH (test code = UA pH) 6.0 1 5.0-8.0 [facility] AND [id number] 18:36:00 Test Item Value Reference Range Interpretation Comments UA Bili (test code = Negative *NA*(07/04/16 UA Bili) 1:36 PM) [facility] AND [id number] 18:36:00 Test Item Value Reference Range Interpretation Comments UA Blood (test code = Negative (07/04/16 1:36 UA Blood) PM) [facility] AND [id number] 18:36:00 Test Item Value Reference Range Interpretation Comments UA Ketones (test code = Trace *ABN*(07/04/16 UA Ketones) 1:36 PM) [facility] AND [id number] 18:36:00 Test Item Value Reference Range Interpretation Comments UA Protein (test code = Trace *ABN*(07/04/16 UA Protein) 1:36 PM) [facility] AND [id number] 18:36:00 Test Item Value Reference Range Interpretation Comments UA Urobilinogen (test code = UA 0.2 0.1-1.0 Urobilinogen) [facility] AND [id number] 18:36:00 Test Item Value Reference Range Interpretation Comments UA Leuk Est (test Negative (07/04/16 1:36 code = UA Leuk Est) PM) [facility] AND [id number] 18:36:00 Test Item Value Reference Range Interpretation Comments UA Nitrite (test code Negative (07/04/16 1:36 = UA Nitrite) PM) [facility] AND [id number] 18:36:00 Test Item Value Reference Range Interpretation Comments UA Turbidity (test code = Clear (07/04/16 1:36 UA Turbidity) PM) [facility] AND [id number] 18:36:00 Test Item Value Reference Range Interpretation Comments UA Spec Grav (test code = UA Spec 1.020 1 Grav) [facility] AND [id number] 18:36:00 Test Item Value Reference Range Interpretation Comments UA Color (test code = Yellow *NA*(07/04/16 UA Color) 1:36 PM) [facility] AND [id number] 18:36:00 Test Item Value Reference Range Interpretation Comments UA Sperm (test code = UA Occasional /HPF Sperm) [facility] AND [id number] 18:36:00 Test Item Value Reference Range Interpretation Comments UA Mucus (test code = UA Mucus) Few /LPF [facility] AND [id number] 18:36:00 Test Item Value Reference Range Interpretation Comments UA Bacteria (test code = UA Occasional /HPF Bacteria) [facility] [id number] 18:36:00 Test Item Value Reference Range Interpretation Comments UA Sq Epi (test code = None Seen (07/04/16 1:36 UA Sq Epi) PM) [facility] [id number] 09:28:00 Test Item Value Reference Range Interpretation Comments LDH (test code = LDH) 184 98-192 [facility] [id number] 09:28:00 Test Item Value Reference Range Interpretation Comments Vitamin D, 25-OH, Total (test code = 13 30-100 Vitamin D, 25-OH, Total) [facility]RhmxezsBXKIVZJQWLDJ2344-45-10 09:28:00 Test Item Value Reference Range Interpretation Comments AGAP (test code = AGAP) 11.6 10.0-20.0 [facility] HospitalGzfnsrfGUQXUBZIFORY5142-88-49 09:28:00 Test Item Value Reference Range Interpretation Comments Globulin (test code = Globulin) 4.4 2.7-4.2 [facility] HospitalNtwwyllOKNFHDHAQDHQ0236-97-20 09:28:00 Test Item Value Reference Range Interpretation Comments A/G Ratio (test code = A/G Ratio) 0.7 0.7-1.6 [facility] HospitalGoxrxtxQTMQLCPWHXKF8568-48-63 09:28:00 Test Item Value Reference Range Interpretation Comments B/C Ratio (test code = B/C Ratio) 16 6-25 [facility] HospitalAccaezqTJDZCYJACHOM8256-06-70 09:28:00 Test Item Value Reference Range Interpretation Comments eGFR (test code = eGFR) 126 [facility] HospitalVlfekuwERXPFTXCOBVL1139-89-19 09:28:00 Test Item Value Reference Range Interpretation Comments Sodium Lvl (test code = Sodium Lvl) 136 135-145 [facility] HospitalVnavewdSFVZSDJAQXZW3603-23-61 09:28:00 Test Item Value Reference Range Interpretation Comments BUN (test code = BUN) 9 7-22 [facility] HospitalPrjeqcaDZKFCVEQQNLZ2527-90-30 09:28:00 Test Item Value Reference Range Interpretation Comments Potassium Lvl (test code = Potassium 3.6 3.5-5.1 Lvl) [facility] HospitalDmqkbkpQVAQVUBSFSMM5723-81-13 09:28:00 Test Item Value Reference Range Interpretation Comments Creatinine Lvl (test code = Creatinine 0.56 0.50-1.40 Lvl) [facility] HospitalOwkyldsKZHMOSALZKAC4889-57-71 09:28:00 Test Item Value Reference Range Interpretation Comments Glucose Lvl (test code = Glucose Lvl) 113 70-99 [facility] HospitalTmdxbecLOMCLONIYXGA2734-04-88 09:28:00 Test Item Value Reference Range Interpretation Comments Alk Phos (test code = Alk Phos) 96 39-136 [facility] HospitalVqhuzssOLRNMNSDXZXN9927-67-16 09:28:00 Test Item Value Reference Range Interpretation Comments Bili Total (test code = Bili Total) 0.3 0.2-1.3 [facility] HospitalPueoyqnEKXGZFQQOQPA5121-99-33 09:28:00 Test Item Value Reference Range Interpretation Comments Chloride Lvl (test code = Chloride Lvl) 99 95-109 [facility] HospitalQicujgzBKFBEJUALISF5716-81-14 09:28:00 Test Item Value Reference Range Interpretation Comments AST (test code = AST) 35 See_Comment [Auto mated message] The system which ge nerated this result transmit yanely reference range : <=37. The reference range was not used to interpr et this result as brielle l/abnormal. [facility] HospitalNfmywpcWWZOVIHPKYTT6771-12-87 09:28:00 Test Item Value Reference Range Interpretation Comments ALT (test code = ALT) 45 See_Comment [Auto mated message] The system which ge nerated this result transmit yanely reference range : <=65. The reference range was not used to interpr et this result as brielle l/abnormal. [facility] HospitalIdcyjzjJGDAJYYPBSFA1713-35-22 09:28:00 Test Item Value Reference Range Interpretation Comments CO2 (test code = CO2) 29 24-32 [facility] HospitalWjwydgmETSQBLHVOAPP6289-53-88 09:28:00 Test Item Value Reference Range Interpretation Comments Albumin Lvl (test code = Albumin Lvl) 3.1 3.5-5.0 [facility] HospitalNbnxnxwVZXRUQCSGITR9900-47-99 09:28:00 Test Item Value Reference Range Interpretation Comments Calcium Lvl (test code = Calcium Lvl) 8.6 8.5-10.5 [facility] HospitalNigldtiSSOFEQXIGQHC8601-44-19 09:28:00 Test Item Value Reference Range Interpretation Comments Total Protein (test code = Total 7.5 6.4-8.4 Protein) [facility] HospitalYvogsouXFCWIZHZNE0671-91-12 09:28:00 Test Item Value Reference Range Interpretation Comments RDW (test code = RDW) 16.2 11.5-14.5 [facility] HospitalOahyeufPAKASUSVOL9889-34-70 09:28:00 Test Item Value Reference Range Interpretation Comments MCV (test code = MCV) 75.0 80.0-94.0 [facility] HospitalMomyfnqYVFLHLGXID0773-79-41 09:28:00 Test Item Value Reference Range Interpretation Comments MCH (test code = MCH) 24.9 pg 27.0-31.0 [facility] HospitalLpjriirTZLDVNLMWL0344-79-06 09:28:00 Test Item Value Reference Range Interpretation Comments MCHC (test code = MCHC) 33.2 32.0-36.0 [facility] HospitalXzspbygBAXSFZPJEX8425-34-58 09:28:00 Test Item Value Reference Range Interpretation Comments Platelet (test code = Platelet) 216 133-450 [facility] HospitalWbbpryxDPKVPWZNGR1088-64-98 09:28:00 Test Item Value Reference Range Interpretation Comments MPV (test code = MPV) 9.5 7.4-10.4 [facility] HospitalEpiuxreRTIXGCIWNE0344-45-12 09:28:00 Test Item Value Reference Range Interpretation Comments RBC (test code = RBC) 5.17 4.70-6.10 [facility] HospitalWfmnvhyGFHFCFNDSV4758-24-25 09:28:00 Test Item Value Reference Range Interpretation Comments Hgb (test code = Hgb) 12.9 14.0-18.0 [facility] HospitalZmultdfOGCPGKXEQB9381-29-19 09:28:00 Test Item Value Reference Range Interpretation Comments Hct (test code = Hct) 38.8 42.0-54.0 [facility] HospitalFfdhmcjCMGORGPOFO9015-51-69 09:28:00 Test Item Value Reference Range Interpretation Comments WBC (test code = WBC) 8.9 3.7-10.4 [facility] HospitalIrmbfhhRDYQGJSSTG9088-62-34 09:28:00 Test Item Value Reference Range Interpretation Comments Microcyte (test code = 2+ *ABN*(07/03/16 Microcyte) 4:28 AM) [facility] HospitalInwmblpJTFYCLGTGT2225-68-72 09:28:00 Test Item Value Reference Range Interpretation Comments Basophils # (test code 0.1 See_Comment [Aut omated message] The = Basophils #) system which generated this result tra nsmitted reference range : <=0.2. The reference r matthieu was not used to int erpret this result as normal/abnormal . [facility] HospitalPmdjtdkKBFGPZDPBL6581-44-34 09:28:00 Test Item Value Reference Range Interpretation Comments Eosinophils # (test code 0.5 See_Comment [A utomated message] The = Eosinophils #) system whic h generated this result tra nsmitted reference range : <=0.5. The reference r matthieu was not used to int erpret this result as normal/abnormal . [facility] HospitalUizqyjzTWDUGCJZAR2020-65-17 09:28:00 Test Item Value Reference Range Interpretation Comments Basophils (test code = 0.6 See_Comment [Aut omated message] The Basophils) system which ge nerated this result tra nsmitted reference range : <=1.0. The reference r matthieu was not used to int erpret this result as normal/abnormal . [facility] HospitalWaifhcpJWTXCHZJDA5756-52-74 09:28:00 Test Item Value Reference Range Interpretation Comments Lymphocytes # (test code = Lymphocytes 2.1 1.0-5.5 #) [facility] HospitalBdhwxxhMELHPEEAKA3863-87-88 09:28:00 Test Item Value Reference Range Interpretation Comments Segs-Bands # (test code = Segs-Bands #) 5.2 1.5-8.1 [facility] HospitalCebuxebHSTZSIKMQV7541-76-16 09:28:00 Test Item Value Reference Range Interpretation Comments Monocytes # (test code 1.0 See_Comment [Aut omated message] The = Monocytes #) system which generated this result tra nsmitted reference range : <=0.8. The reference r matthieu was not used to int erpret this result as normal/abnormal . [facility] HospitalAljziumSPALSKWQZO6755-29-07 09:28:00 Test Item Value Reference Range Interpretation Comments Eosinophils (test code = 5.2 See_Comment [A utomated message] The Eosinophils) system which ge nerated this result tra nsmitted reference range : <=4.0. The reference r matthieu was not used to int erpret this result as normal/abnormal . [facility] HospitalSzrujjaUEXGBIVZUF2495-58-20 09:28:00 Test Item Value Reference Range Interpretation Comments Segs (test code = Segs) 59.6 45.0-75.0 [facility] HospitalWrvizpnXTPXJDYMFD8955-45-39 09:28:00 Test Item Value Reference Range Interpretation Comments Lymphocytes (test code = Lymphocytes) 23.1 20.0-40.0 [facility] HospitalPcavxixPANVOGZMVC3468-76-03 09:28:00 Test Item Value Reference Range Interpretation Comments Monocytes (test code = Monocytes) 11.5 2.0-12.0 [facility]2017-04-10 10:40:00 Test Item Value Reference Range Interpretation Comments A/G Ratio (test code = A/G Ratio) 0.7 0.7-1.6 [facility]2017-04-10 10:40:00 Test Item Value Reference Range Interpretation Comments AGAP (test code = AGAP) 11.7 10.0-20.0 [facility]2017-04-10 10:40:00 Test Item Value Reference Range Interpretation Comments B/C Ratio (test code = B/C Ratio) 17 6-25 [facility]2017-04-10 10:40:00 Test Item Value Reference Range Interpretation Comments Globulin (test code = Globulin) 4.5 2.7-4.2 [facility]2017-04-10 10:40:00 Test Item Value Reference Range Interpretation Comments eGFR (test code = eGFR) 124 [facility]2017-04-10 10:40:00 Test Item Value Reference Range Interpretation Comments BUN (test code = BUN) 10 7-22 [facility]2017-04-10 10:40:00 Test Item Value Reference Range Interpretation Comments Glucose Lvl (test code = Glucose Lvl) 113 70-99 [facility]2017-04-10 10:40:00 Test Item Value Reference Range Interpretation Comments Bili Total (test code = Bili Total) 0.3 0.2-1.3 [facility]2017-04-10 10:40:00 Test Item Value Reference Range Interpretation Comments Alk Phos (test code = Alk Phos) 95 39-136 [facility]2017-04-10 10:40:00 Test Item Value Reference Range Interpretation Comments Chloride Lvl (test code = Chloride Lvl) 101 95-109 [facility]2017-04-10 10:40:00 Test Item Value Reference Range Interpretation Comments Calcium Lvl (test code = Calcium Lvl) 8.9 8.5-10.5 [facility]2017-04-10 10:40:00 Test Item Value Reference Range Interpretation Comments AST (test code = AST) 40 See_Comment [Auto mated message] The system which ge nerated this result transmit yanely reference range : <=37. The reference range was not used to interpr et this result as brielle l/abnormal. [facility]2017-04-10 10:40:00 Test Item Value Reference Range Interpretation Comments ALT (test code = ALT) 46 See_Comment [Auto mated message] The system which ge nerated this result transmit yanely reference range : <=65. The reference range was not used to interpr et this result as brielle l/abnormal. [facility]2017-04-10 10:40:00 Test Item Value Reference Range Interpretation Comments Albumin Lvl (test code = Albumin Lvl) 3.1 3.5-5.0 [facility]2017-04-10 10:40:00 Test Item Value Reference Range Interpretation Comments Total Protein (test code = Total 7.6 6.4-8.4 Protein) [facility]2017-04-10 10:40:00 Test Item Value Reference Range Interpretation Comments Creatinine Lvl (test code = Creatinine 0.58 0.50-1.40 Lvl) [facility]2017-04-10 10:40:00 Test Item Value Reference Range Interpretation Comments Sodium Lvl (test code = Sodium Lvl) 138 135-145 [facility]2017-04-10 10:40:00 Test Item Value Reference Range Interpretation Comments Potassium Lvl (test code = Potassium 3.7 3.5-5.1 Lvl) [facility]2017-04-10 10:40:00 Test Item Value Reference Range Interpretation Comments CO2 (test code = CO2) 29 24-32 [facility] HospitalNnycfjyIAFTDGSHJJ5671-37-71 10:40:00 Test Item Value Reference Range Interpretation Comments Basophils # (test code 0.1 See_Comment [Aut omated message] The = Basophils #) system which generated this result tra nsmitted reference range : <=0.2. The reference r matthieu was not used to int erpret this result as normal/abnormal . [facility] HospitalPmqnxkbUYMJXFSHXX4437-63-26 10:40:00 Test Item Value Reference Range Interpretation Comments Microcyte (test code = 2+ *ABN*(06/26/16 Microcyte) 5:40 AM) [facility] HospitalFhmzfohWXNQRTALSI5620-45-51 10:40:00 Test Item Value Reference Range Interpretation Comments Monocytes # (test code 0.7 See_Comment [Aut omated message] The = Monocytes #) system which generated this result tra nsmitted reference range : <=0.8. The reference r matthieu was not used to int erpret this result as normal/abnormal . [facility] HospitalZupiqouPQRBTVLGKU5763-41-20 10:40:00 Test Item Value Reference Range Interpretation Comments Eosinophils # (test code 0.3 See_Comment [A utomated message] The = Eosinophils #) system whic h generated this result tra nsmitted reference range : <=0.5. The reference r matthieu was not used to int erpret this result as normal/abnormal . [facility] HospitalVpgyddqSKVCQDZENR9248-02-71 10:40:00 Test Item Value Reference Range Interpretation Comments Segs-Bands # (test code = Segs-Bands #) 4.7 1.5-8.1 [facility] HospitalVxphhiwSIOQUNVFXD6392-97-50 10:40:00 Test Item Value Reference Range Interpretation Comments Basophils (test code = 0.8 See_Comment [Aut omated message] The Basophils) system which ge nerated this result tra nsmitted reference range : <=1.0. The reference r matthieu was not used to int erpret this result as normal/abnormal . [facility] HospitalTtgbalfFZOFPDBRHL0219-45-25 10:40:00 Test Item Value Reference Range Interpretation Comments Lymphocytes # (test code = Lymphocytes 2.7 1.0-5.5 #) [facility] HospitalQqyyctqTKKDNRCDWB2632-41-42 10:40:00 Test Item Value Reference Range Interpretation Comments Monocytes (test code = Monocytes) 8.2 2.0-12.0 [facility] HospitalTrcxeifWPGYRIMSZH2094-81-44 10:40:00 Test Item Value Reference Range Interpretation Comments Eosinophils (test code = 3.2 See_Comment [A utomated message] The Eosinophils) system which ge nerated this result tra nsmitted reference range : <=4.0. The reference r matthieu was not used to int erpret this result as normal/abnormal . [facility] HospitalHeiqsogPAAGDSOCKM9884-53-54 10:40:00 Test Item Value Reference Range Interpretation Comments Lymphocytes (test code = Lymphocytes) 32.2 20.0-40.0 [facility] HospitalLdlxilxPJPVEHXWPS9368-77-04 10:40:00 Test Item Value Reference Range Interpretation Comments Segs (test code = Segs) 55.6 45.0-75.0 [facility] HospitalZvybeblRMZWIZWVAN6150-88-86 10:40:00 Test Item Value Reference Range Interpretation Comments Hgb (test code = Hgb) 13.7 14.0-18.0 [facility] HospitalVgertttQHEKCODVAZ3898-40-72 10:40:00 Test Item Value Reference Range Interpretation Comments Platelet (test code = Platelet) 282 133-450 [facility] HospitalXmyqixfXHPNRFGLAS4380-67-90 10:40:00 Test Item Value Reference Range Interpretation Comments MPV (test code = MPV) 9.4 7.4-10.4 [facility] HospitalHnypqlzUQMRNFSCRL8687-79-81 10:40:00 Test Item Value Reference Range Interpretation Comments Hct (test code = Hct) 41.6 42.0-54.0 [facility] HospitalNglozwsTXFMFXDDVS0883-29-37 10:40:00 Test Item Value Reference Range Interpretation Comments MCV (test code = MCV) 74.7 80.0-94.0 [facility] HospitalCjdboplOXSWXOTXIH0277-01-13 10:40:00 Test Item Value Reference Range Interpretation Comments MCH (test code = MCH) 24.6 pg 27.0-31.0 [facility] HospitalQkzvmbtPFPUXYIMZC0753-05-64 10:40:00 Test Item Value Reference Range Interpretation Comments MCHC (test code = MCHC) 33.0 32.0-36.0 [facility] HospitalUuqnqxeNRAPXJGBGO7904-33-48 10:40:00 Test Item Value Reference Range Interpretation Comments RDW (test code = RDW) 16.0 11.5-14.5 [facility] HospitalGowjbhcMVNSTADFCV5701-73-70 10:40:00 Test Item Value Reference Range Interpretation Comments WBC (test code = WBC) 8.5 3.7-10.4 [facility] HospitalPmvjdpdLCQKYQOJKA5750-50-96 10:40:00 Test Item Value Reference Range Interpretation Comments RBC (test code = RBC) 5.57 4.70-6.10 [facility]2017-04-08 10:59:00 Test Item Value Reference Range Interpretation Comments Vitamin B12 Lvl (test code = Vitamin 001 095-7683 B12 Lvl) [facility]2017-04-07 10:53:00 Test Item Value Reference Range Interpretation Comments Ferritin Lvl (test code = Ferritin Lvl) 172 22-275 [facility]2017-04-07 10:53:00 Test Item Value Reference Range Interpretation Comments % Satur Fe (test code = % Satur Fe) 17 12-57 [facility]2017-04-07 10:53:00 Test Item Value Reference Range Interpretation Comments UIBC (test code = UIBC) 270 110-370 [facility]2017-04-07 10:53:00 Test Item Value Reference Range Interpretation Comments TIBC (test code = TIBC) 325 228-428 [facility]2017-04-07 10:53:00 Test Item Value Reference Range Interpretation Comments Iron (test code = Iron) 55 45-160 [place] [address]2017-04-06 10:32:00 Test Item Value Reference Range Interpretation Comments Testosterone Free (test code = 8.8 6.8-21.5 Testosterone Free) [place] [address]2017-04-06 10:32:00 Test Item Value Reference Range Interpretation Comments Testosterone Tot (test code = 167.5 348.0-1197.0 Testosterone Tot) [facility]2017-04-05 10:23:00 Test Item Value Reference Range Interpretation Comments Magnesium Lvl (test code = Magnesium 2.2 1.8-2.4 Lvl) [facility] [id number] 10:23:00 Test Item Value Reference Range Interpretation Comments Phosphorus (test code = Phosphorus) 3.3 2.5-4.5 [facility] HospitalLcnpmnnEAKHSPOLEU2242-61-27 10:23:00 Test Item Value Reference Range Interpretation Comments Prealbumin (test code = Prealbumin) 15.5 18.0-45.0 [facility] HospitalKicgwdlLSBGZH6955-03-44 10:23:00 Test Item Value Reference Range Interpretation Comments CHD Risk (test code = CHD Risk) 6.73 4.00-7.30 [facility] HospitalQitejbpWAXQNX9151-90-37 10:23:00 Test Item Value Reference Range Interpretation Comments VLDL (test code = VLDL) 22 [facility] HospitalYqjkxzuHITPRU7272-09-63 10:23:00 Test Item Value Reference Range Interpretation Comments LDL (Calculated) (test code = LDL 167 (Calculated)) [facility] HospitalYnsbptnNWGWMJ1402-52-51 10:23:00 Test Item Value Reference Range Interpretation Comments HDL (test code = HDL) 33 [facility] HospitalLdpimwdBMPEMF9555-41-55 10:23:00 Test Item Value Reference Range Interpretation Comments Chol (test code = Chol) 222 [facility] HospitalAqgxsrlIXWYQM2883-77-01 10:23:00 Test Item Value Reference Range Interpretation Comments Trig (test code = Trig) 111 [facility] GYKZCHWBJ9306-57-31 10:23:00 Test Item Value Reference Range Interpretation Comments Hgb A1C (test code = Hgb A1C) 9.2 [facility] AND [id number] 02:26:00 Test Item Value Reference Range Interpretation Comments UA Urobilinogen (test code = UA <=1.0 mg/dL 0.1-1.0 Urobilinogen) [facility] AND [id number] 02:26:00 Test Item Value Reference Range Interpretation Comments UA Sperm (test code = UA Occasional /HPF Sperm) [facility] AND [id number] 02:26:00 Test Item Value Reference Range Interpretation Comments UA Glucose (test code = UA >=1000mg/dL Glucose) [facility] AND [id number] 02:26:00 Test Item Value Reference Range Interpretation Comments UA Ketones (test code = UA Ketones) TR [facility] AND [id number] 02:26:00 Test Item Value Reference Range Interpretation Comments UA Spec Grav (test code = UA Spec Grav) 1.022 [facility] AND [id number] 02:26:00 Test Item Value Reference Range Interpretation Comments UA Turbidity (test code = Clear (06/20/16 9:26 UA Turbidity) PM) [facility] AND [id number] 02:26:00 Test Item Value Reference Range Interpretation Comments UA pH (test code = UA pH) 6.0 5.0-8.0 [facility] AND [id number] 02:26:00 Test Item Value Reference Range Interpretation Comments UA Protein (test code = UA Protein) 10 mg/dL [facility] AND [id number] 02:26:00 Test Item Value Reference Range Interpretation Comments UA Color (test code = Yellow *NA*(06/20/16 9:26 UA Color) PM) [facility] AND [id number] 02:26:00 Test Item Value Reference Range Interpretation Comments UA Mucus (test code = UA Mucus) Few /LPF [facility] AND [id number] 02:26:00 Test Item Value Reference Range Interpretation Comments UA Nitrite (test code Negative (06/20/16 9:26 = UA Nitrite) PM) [facility] AND [id number] 02:26:00 Test Item Value Reference Range Interpretation Comments UA Sq Epi (test code = UA Sq Epi) None Seen [facility] AND [id number] 02:26:00 Test Item Value Reference Range Interpretation Comments UA Bili (test code = Negative *NA*(06/20/16 UA Bili) 9:26 PM) [facility] AND [id number] 02:26:00 Test Item Value Reference Range Interpretation Comments UA WBC (test code = no gt See_Comment [Automa yanely message] The UA WBC) system which ge nerated this result transmit yanely reference range : <=5. The reference range was not used to interpr et this result as brielle l/abnormal. [facility] AND [id number] 02:26:00 Test Item Value Reference Range Interpretation Comments UA Blood (test code = Negative (06/20/16 9:26 UA Blood) PM) [facility] AND [id number] 02:26:00 Test Item Value Reference Range Interpretation Comments UA Leuk Est (test Negative (06/20/16 9:26 code = UA Leuk Est) PM) [facility] [id number] 22:58:00 Test Item Value Reference Range Interpretation Comments eGFR (test code = eGFR) 117 [facility]2017-02-07 22:58:00 Test Item Value Reference Range Interpretation Comments Creatinine Lvl (test code = Creatinine 0.68 0.50-1.40 Lvl) [facility] [id number] 22:58:00 Test Item Value Reference Range Interpretation Comments Sodium Lvl (test code = Sodium Lvl) 138 135-145 [facility] [id number] 22:58:00 Test Item Value Reference Range Interpretation Comments Alk Phos (test code = Alk Phos) 157 39-136 [facility]2017-02-07 22:58:00 Test Item Value Reference Range Interpretation Comments Bili Total (test code = Bili Total) 0.2 0.2-1.3 [facility]2017-02-07 22:58:00 Test Item Value Reference Range Interpretation Comments Total Protein (test code = Total 8.3 6.4-8.4 Protein) [facility]2017-02-07 22:58:00 Test Item Value Reference Range Interpretation Comments ALT (test code = ALT) 44 See_Comment [Auto mated message] The system which ge nerated this result transmit yanely reference range : <=65. The reference range was not used to interpr et this result as brielle l/abnormal. [facility]2017-02-07 22:58:00 Test Item Value Reference Range Interpretation Comments Albumin Lvl (test code = Albumin Lvl) 3.3 3.5-5.0 [facility]2017-02-07 22:58:00 Test Item Value Reference Range Interpretation Comments AST (test code = AST) 35 See_Comment [Auto mated message] The system which ge nerated this result transmit yanely reference range : <=37. The reference range was not used to interpr et this result as brielle l/abnormal. [facility]2017-02-07 22:58:00 Test Item Value Reference Range Interpretation Comments BUN (test code = BUN) 7 7-22 [facility]2017-02-07 22:58:00 Test Item Value Reference Range Interpretation Comments Calcium Lvl (test code = Calcium Lvl) 8.3 8.5-10.5 [facility]2017-02-07 22:58:00 Test Item Value Reference Range Interpretation Comments Chloride Lvl (test code = Chloride Lvl) 101 95-109 [facility]2017-02-07 22:58:00 Test Item Value Reference Range Interpretation Comments Potassium Lvl (test code = Potassium 3.9 3.5-5.1 Lvl) [facility]2017-02-07 22:58:00 Test Item Value Reference Range Interpretation Comments CO2 (test code = CO2) 28 24-32 [facility]2017-02-07 22:58:00 Test Item Value Reference Range Interpretation Comments Glucose Lvl (test code = Glucose Lvl) 203 70-99 [facility]2017-02-07 22:58:00 Test Item Value Reference Range Interpretation Comments A/G Ratio (test code = A/G Ratio) 0.7 0.7-1.6 [facility]2017-02-07 22:58:00 Test Item Value Reference Range Interpretation Comments AGAP (test code = AGAP) 12.9 10.0-20.0 [facility]2017-02-07 22:58:00 Test Item Value Reference Range Interpretation Comments Globulin (test code = Globulin) 5.0 2.7-4.2 [facility]2017-02-07 22:58:00 Test Item Value Reference Range Interpretation Comments B/C Ratio (test code = B/C Ratio) 10 6-25 [facility]ZtjhberHRPEXRTGML5813-06-94 22:58:00 Test Item Value Reference Range Interpretation Comments MPV (test code = MPV) 9.0 7.4-10.4 [facility] HospitalCmigdbfXJKOGEYXAS1091-49-78 22:58:00 Test Item Value Reference Range Interpretation Comments Platelet (test code = Platelet) 310 133-450 [facility] HospitalGkdwmncNXRANVVMMZ4127-13-16 22:58:00 Test Item Value Reference Range Interpretation Comments RDW (test code = RDW) 17.5 11.5-14.5 [facility] HospitalDjwhnosDJWUMOAFKY2974-82-12 22:58:00 Test Item Value Reference Range Interpretation Comments MCHC (test code = MCHC) 32.1 32.0-36.0 [facility] HospitalPxflaatBXFPGZPYZZ2518-99-12 22:58:00 Test Item Value Reference Range Interpretation Comments RBC (test code = RBC) 5.62 4.70-6.10 [facility] HospitalGgbuejhAPMDANHUPY9938-42-22 22:58:00 Test Item Value Reference Range Interpretation Comments Hgb (test code = Hgb) 13.9 14.0-18.0 [facility] HospitalTytpbhpECCUSGZLEG1981-53-01 22:58:00 Test Item Value Reference Range Interpretation Comments WBC (test code = WBC) 10.3 3.7-10.4 [facility] HospitalHvpybxzNLITJVCHVB6948-00-14 22:58:00 Test Item Value Reference Range Interpretation Comments MCV (test code = MCV) 76.9 80.0-94.0 [facility] HospitalJpdzodkGDJUSTDKJH5149-72-94 22:58:00 Test Item Value Reference Range Interpretation Comments MCH (test code = MCH) 24.7 pg 27.0-31.0 [facility] HospitalVqrffiuCTFGLWCDOH7079-42-80 22:58:00 Test Item Value Reference Range Interpretation Comments Hct (test code = Hct) 43.2 42.0-54.0 [facility] HospitalKpichlqFIBLXZMHLJ1153-89-14 22:58:00 Test Item Value Reference Range Interpretation Comments Microcyte (test code = 1+ *ABN*(04/25/16 4:58 Microcyte) PM) [facility] HospitalCxeggppLCNPBPDAJL8538-82-00 22:58:00 Test Item Value Reference Range Interpretation Comments Basophils # (test code 0.1 See_Comment [Aut omated message] The = Basophils #) system which generated this result tra nsmitted reference range : <=0.2. The reference r matthieu was not used to int erpret this result as normal/abnormal . [facility] HospitalJxszniqKMQLNSNSPP5762-84-05 22:58:00 Test Item Value Reference Range Interpretation Comments Eosinophils # (test code 0.3 See_Comment [A utomated message] The = Eosinophils #) system whic h generated this result tra nsmitted reference range : <=0.5. The reference r matthieu was not used to int erpret this result as normal/abnormal . [facility] HospitalIkcegkbKHBFPRRJIC7191-77-24 22:58:00 Test Item Value Reference Range Interpretation Comments Segs-Bands # (test code = Segs-Bands #) 6.4 1.5-8.1 [facility] HospitalIcbfajgAOPACLQSOK9703-03-90 22:58:00 Test Item Value Reference Range Interpretation Comments Monocytes # (test code 0.9 See_Comment [Aut omated message] The = Monocytes #) system which generated this result tra nsmitted reference range : <=0.8. The reference r matthieu was not used to int erpret this result as normal/abnormal . [facility] HospitalEkrlcfgIFOFIIJKDI5281-11-58 22:58:00 Test Item Value Reference Range Interpretation Comments Lymphocytes # (test code = Lymphocytes 2.6 1.0-5.5 #) [facility] HospitalViloywyBXYZESGNSD4545-63-62 22:58:00 Test Item Value Reference Range Interpretation Comments Segs (test code = Segs) 62.7 45.0-75.0 [facility] HospitalBxuluhkISNCYDAGOJ8322-13-06 22:58:00 Test Item Value Reference Range Interpretation Comments Basophils (test code = 0.5 See_Comment [Aut omated message] The Basophils) system which ge nerated this result tra nsmitted reference range : <=1.0. The reference r matthieu was not used to int erpret this result as normal/abnormal . [facility] HospitalRizjmdvNYVCMQDPBI7496-52-14 22:58:00 Test Item Value Reference Range Interpretation Comments Eosinophils (test code = 3.1 See_Comment [A utomated message] The Eosinophils) system which ge nerated this result tra nsmitted reference range : <=4.0. The reference r matthieu was not used to int erpret this result as normal/abnormal . [facility] HospitalBawqwipZKKJXXVPVF1508-50-37 22:58:00 Test Item Value Reference Range Interpretation Comments Lymphocytes (test code = Lymphocytes) 25.2 20.0-40.0 [facility] HospitalCndrubwYYWJECWCRG0325-99-38 22:58:00 Test Item Value Reference Range Interpretation Comments Monocytes (test code = Monocytes) 8.5 2.0-12.0 [facility]2016-10-13 16:17:00 Test Item Value Reference Range Interpretation Comments eGFR (test code = eGFR) 114 [facility]2016-10-13 16:17:00 Test Item Value Reference Range Interpretation Comments AST (test code = AST) 40 See_Comment [Auto mated message] The system which ge nerated this result transmit yanely reference range : <=37. The reference range was not used to interpr et this result as brielle l/abnormal. [facility]2016-10-13 16:17:00 Test Item Value Reference Range Interpretation Comments ALT (test code = ALT) 47 See_Comment [Auto mated message] The system which ge nerated this result transmit yanely reference range : <=65. The reference range was not used to interpr et this result as brielle l/abnormal. [facility]2016-10-13 16:17:00 Test Item Value Reference Range Interpretation Comments Bili Total (test code = Bili Total) 0.3 0.2-1.3 [facility]2016-10-13 16:17:00 Test Item Value Reference Range Interpretation Comments Alk Phos (test code = Alk Phos) 99 39-136 [facility]2016-10-13 16:17:00 Test Item Value Reference Range Interpretation Comments Albumin Lvl (test code = Albumin Lvl) 3.4 3.5-5.0 [facility]2016-10-13 16:17:00 Test Item Value Reference Range Interpretation Comments Total Protein (test code = Total 8.0 6.4-8.4 Protein) [facility]2016-10-13 16:17:00 Test Item Value Reference Range Interpretation Comments Calcium Lvl (test code = Calcium Lvl) 8.6 8.5-10.5 [facility]2016-10-13 16:17:00 Test Item Value Reference Range Interpretation Comments CO2 (test code = CO2) 26 24-32 [facility]2016-10-13 16:17:00 Test Item Value Reference Range Interpretation Comments Chloride Lvl (test code = Chloride Lvl) 104 95-109 [facility]2016-10-13 16:17:00 Test Item Value Reference Range Interpretation Comments Creatinine Lvl (test code = Creatinine 0.72 0.50-1.40 Lvl) [facility]2016-10-13 16:17:00 Test Item Value Reference Range Interpretation Comments Sodium Lvl (test code = Sodium Lvl) 138 135-145 [facility]2016-10-13 16:17:00 Test Item Value Reference Range Interpretation Comments Potassium Lvl (test code = Potassium 4.0 3.5-5.1 Lvl) [facility]2016-10-13 16:17:00 Test Item Value Reference Range Interpretation Comments Glucose Lvl (test code = Glucose Lvl) 200 70-99 [facility]2016-10-13 16:17:00 Test Item Value Reference Range Interpretation Comments BUN (test code = BUN) 9 7-22 [facility]2016-10-13 16:17:00 Test Item Value Reference Range Interpretation Comments B/C Ratio (test code = B/C Ratio) 12 6-25 [facility]2016-10-13 16:17:00 Test Item Value Reference Range Interpretation Comments AGAP (test code = AGAP) 12.0 10.0-20.0 [facility]2016-10-13 16:17:00 Test Item Value Reference Range Interpretation Comments A/G Ratio (test code = A/G Ratio) 0.7 0.7-1.6 [facility]2016-10-13 16:17:00 Test Item Value Reference Range Interpretation Comments Globulin (test code = Globulin) 4.6 2.7-4.2 [facility]2016-10-13 16:17:00 Test Item Value Reference Range Interpretation Comments Magnesium Lvl (test code = Magnesium 2.1 1.8-2.4 Lvl) [facility] Hospit[id number] 16:17:00 Test Item Value Reference Range Interpretation Comments Hct (test code = Hct) 42.5 42.0-54.0 [facility] HospitalRhfjumoIEVYWJBCYU3077-92-43 16:17:00 Test Item Value Reference Range Interpretation Comments MCV (test code = MCV) 74.6 80.0-94.0 [facility] HospitalXyhdmwtCJUVCUVNZO1477-22-84 16:17:00 Test Item Value Reference Range Interpretation Comments MCHC (test code = MCHC) 32.2 32.0-36.0 [facility] HospitalXlfkidwTUCRFMCLCF4806-58-75 16:17:00 Test Item Value Reference Range Interpretation Comments MCH (test code = MCH) 24.0 pg 27.0-31.0 [facility] HospitalNfgkyjkAVPZSYXAJB4580-81-18 16:17:00 Test Item Value Reference Range Interpretation Comments Platelet (test code = Platelet) 339 133-450 [facility] HospitalFxlpaduYISEBZGQGD6469-94-38 16:17:00 Test Item Value Reference Range Interpretation Comments MPV (test code = MPV) 9.4 7.4-10.4 [facility] HospitalQxmadcfJBAVFASMBQ5340-92-58 16:17:00 Test Item Value Reference Range Interpretation Comments RDW (test code = RDW) 16.9 11.5-14.5 [facility] HospitalTfhzdrwRGTEYDOOEU9951-97-45 16:17:00 Test Item Value Reference Range Interpretation Comments WBC (test code = WBC) 9.5 3.7-10.4 [facility] HospitalKqgvqzlIHTBYLGVSZ9521-78-90 16:17:00 Test Item Value Reference Range Interpretation Comments RBC (test code = RBC) 5.69 4.70-6.10 [facility] HospitalRocatziAJHKRMVASM8990-83-50 16:17:00 Test Item Value Reference Range Interpretation Comments Hgb (test code = Hgb) 13.7 14.0-18.0 [facility] HospitalAlesqunFNXJOZREBR6729-86-99 16:17:00 Test Item Value Reference Range Interpretation Comments Microcyte (test code = 2+ *ABN*(12/30/15 Microcyte) 11:17 AM) [facility] HospitalKhiqwlyOFTDADGIKF0081-27-72 16:17:00 Test Item Value Reference Range Interpretation Comments Eosinophils # (test code 0.2 See_Comment [A utomated message] The = Eosinophils #) system whic h generated this result tra nsmitted reference range : <=0.5. The reference r matthieu was not used to int erpret this result as normal/abnormal . [facility] HospitalEdzxgxsAOMAZIVBLG4006-01-94 16:17:00 Test Item Value Reference Range Interpretation Comments Basophils # (test code 0.1 See_Comment [Aut omated message] The = Basophils #) system which generated this result tra nsmitted reference range : <=0.2. The reference r matthieu was not used to int erpret this result as normal/abnormal . [facility] HospitalTdmkmtnNUOBZZTUAO2418-25-03 16:17:00 Test Item Value Reference Range Interpretation Comments Lymphocytes (test code = Lymphocytes) 21.2 20.0-40.0 [facility] HospitalCyfcbqoTEPWEIFDYM4069-94-31 16:17:00 Test Item Value Reference Range Interpretation Comments Segs (test code = Segs) 70.3 45.0-75.0 [facility] HospitalBknfndnTWHCBXTMZJ6779-96-69 16:17:00 Test Item Value Reference Range Interpretation Comments Monocytes (test code = Monocytes) 5.5 2.0-12.0 [facility] HospitalRpmpqkuGBMEEEEFJJ0793-66-00 16:17:00 Test Item Value Reference Range Interpretation Comments Eosinophils (test code = 2.0 See_Comment [A utomated message] The Eosinophils) system which ge nerated this result tra nsmitted reference range : <=4.0. The reference r matthieu was not used to int erpret this result as normal/abnormal . [facility] HospitalPsiugqrIHWIZJJPRR4690-37-79 16:17:00 Test Item Value Reference Range Interpretation Comments Basophils (test code = 1.0 See_Comment [Aut omated message] The Basophils) system which ge nerated this result tra nsmitted reference range : <=1.0. The reference r matthieu was not used to int erpret this result as normal/abnormal . [facility] HospitalEjsqstsRRCKTKEWPV0143-10-13 16:17:00 Test Item Value Reference Range Interpretation Comments Lymphocytes # (test code = Lymphocytes 2.0 1.0-5.5 #) [facility] HospitalHtkkbnbMKECQYVPMA5973-50-72 16:17:00 Test Item Value Reference Range Interpretation Comments Monocytes # (test code 0.5 See_Comment [Aut omated message] The = Monocytes #) system which generated this result tra nsmitted reference range : <=0.8. The reference r matthieu was not used to int erpret this result as normal/abnormal . [facility] HospitalQrxaxavRYGFQTWELK7369-29-82 16:17:00 Test Item Value Reference Range Interpretation Comments Segs-Bands # (test code = Segs-Bands #) 6.7 1.5-8.1 [facility] HospitalIcqpbrmDNMREMKJBJ2698-65-13 12:47:00 Test Item Value Reference Range Interpretation Comments MPV (test code = MPV) 9.3 7.4-10.4 [facility] HospitalWbprdblYVVQZTNNNR6127-36-12 12:47:00 Test Item Value Reference Range Interpretation Comments Platelet (test code = Platelet) 290 133-450 [facility] HospitalDpbvzrbJZPHLLANWN8709-95-74 12:47:00 Test Item Value Reference Range Interpretation Comments RDW (test code = RDW) 16.9 11.5-14.5 [facility] HospitalVosmbgeYYKJBOYGJQ3763-29-14 12:47:00 Test Item Value Reference Range Interpretation Comments MCHC (test code = MCHC) 31.8 32.0-36.0 [facility] HospitalArraaqkBZIHQHUITY9940-74-98 12:47:00 Test Item Value Reference Range Interpretation Comments RBC (test code = RBC) 5.48 4.70-6.10 [facility] HospitalQmykivnIIVIULUPJC2471-64-36 12:47:00 Test Item Value Reference Range Interpretation Comments MCH (test code = MCH) 23.7 pg 27.0-31.0 [facility] HospitalAaofxfvJGXJOMHMNK0584-40-75 12:47:00 Test Item Value Reference Range Interpretation Comments MCV (test code = MCV) 74.6 80.0-94.0 [facility] HospitalJjepmutBBDQAGSXEE7494-62-28 12:47:00 Test Item Value Reference Range Interpretation Comments Hct (test code = Hct) 40.9 42.0-54.0 [facility] HospitalPkryfvyQWSEPAVQBY6106-43-74 12:47:00 Test Item Value Reference Range Interpretation Comments Hgb (test code = Hgb) 13.0 14.0-18.0 [facility] HospitalNeiehutIJKYSPOZLP4964-42-36 12:47:00 Test Item Value Reference Range Interpretation Comments WBC (test code = WBC) 9.0 3.7-10.4 [facility] HospitalXessyzaLVMUODKQEC3300-82-38 12:47:00 Test Item Value Reference Range Interpretation Comments Lymphocytes # (test code = Lymphocytes 2.5 1.0-5.5 #) [facility] HospitalKnhymooSUSPSUNJNL1023-47-71 12:47:00 Test Item Value Reference Range Interpretation Comments Segs-Bands # (test code = Segs-Bands #) 5.4 1.5-8.1 [facility] HospitalImldtmdMCQJZKYSMC8659-73-63 12:47:00 Test Item Value Reference Range Interpretation Comments Microcyte (test code = 2+ *ABN*(12/28/15 Microcyte) 7:47 AM) [facility] HospitalVfjhuzvTOYGWFWAIR5443-60-53 12:47:00 Test Item Value Reference Range Interpretation Comments Basophils # (test code 0.1 See_Comment [Aut omated message] The = Basophils #) system which generated this result tra nsmitted reference range : <=0.2. The reference r matthieu was not used to int erpret this result as normal/abnormal . [facility] HospitalFtbkzhnSMSNOSQVCO8914-86-09 12:47:00 Test Item Value Reference Range Interpretation Comments Eosinophils # (test code 0.2 See_Comment [A utomated message] The = Eosinophils #) system whic h generated this result tra nsmitted reference range : <=0.5. The reference r matthieu was not used to int erpret this result as normal/abnormal . [facility] HospitalAyqojrtEOVWSEUGZD3467-54-75 12:47:00 Test Item Value Reference Range Interpretation Comments Monocytes # (test code 0.8 See_Comment [Aut omated message] The = Monocytes #) system which generated this result tra nsmitted reference range : <=0.8. The reference r matthieu was not used to int erpret this result as normal/abnormal . [facility] HospitalFrsvlijRPZJVPAUDY3075-93-28 12:47:00 Test Item Value Reference Range Interpretation Comments Eosinophils (test code = 2.5 See_Comment [A utomated message] The Eosinophils) system which ge nerated this result tra nsmitted reference range : <=4.0. The reference r matthieu was not used to int erpret this result as normal/abnormal . [facility] HospitalWngqcsyLVLSNJNQCW5697-22-36 12:47:00 Test Item Value Reference Range Interpretation Comments Basophils (test code = 0.6 See_Comment [Aut omated message] The Basophils) system which ge nerated this result tra nsmitted reference range : <=1.0. The reference r matthieu was not used to int erpret this result as normal/abnormal . [facility] HospitalPjfsrcqXWTKLGMCKI0407-09-29 12:47:00 Test Item Value Reference Range Interpretation Comments Lymphocytes (test code = Lymphocytes) 28.0 20.0-40.0 [facility] HospitalPwdalelHNDUZNWLVJ7581-32-63 12:47:00 Test Item Value Reference Range Interpretation Comments Monocytes (test code = Monocytes) 9.0 2.0-12.0 [facility] HospitalPblfnjmCWHCAZWHOS1708-27-96 12:47:00 Test Item Value Reference Range Interpretation Comments Segs (test code = Segs) 59.9 45.0-75.0 [facility]2016-10-10 17:37:00 Test Item Value Reference Range Interpretation Comments B/C Ratio (test code = B/C Ratio) 11 6-25 [facility]2016-10-10 17:37:00 Test Item Value Reference Range Interpretation Comments A/G Ratio (test code = A/G Ratio) 0.7 0.7-1.6 [facility]2016-10-10 17:37:00 Test Item Value Reference Range Interpretation Comments Globulin (test code = Globulin) 4.9 2.7-4.2 [facility]2016-10-10 17:37:00 Test Item Value Reference Range Interpretation Comments AGAP (test code = AGAP) 11.0 10.0-20.0 [facility]2016-10-10 17:37:00 Test Item Value Reference Range Interpretation Comments eGFR (test code = eGFR) 112 [facility]2016-10-10 17:37:00 Test Item Value Reference Range Interpretation Comments Alk Phos (test code = Alk Phos) 97 39-136 [facility]2016-10-10 17:37:00 Test Item Value Reference Range Interpretation Comments Bili Total (test code = Bili Total) 0.4 0.2-1.3 [facility]2016-10-10 17:37:00 Test Item Value Reference Range Interpretation Comments Chloride Lvl (test code = Chloride Lvl) 104 95-109 [facility]2016-10-10 17:37:00 Test Item Value Reference Range Interpretation Comments Total Protein (test code = Total 8.4 6.4-8.4 Protein) [facility]2016-10-10 17:37:00 Test Item Value Reference Range Interpretation Comments CO2 (test code = CO2) 28 24-32 [facility]2016-10-10 17:37:00 Test Item Value Reference Range Interpretation Comments Calcium Lvl (test code = Calcium Lvl) 8.9 8.5-10.5 [facility]2016-10-10 17:37:00 Test Item Value Reference Range Interpretation Comments Creatinine Lvl (test code = Creatinine 0.76 0.50-1.40 Lvl) [facility]2016-10-10 17:37:00 Test Item Value Reference Range Interpretation Comments Sodium Lvl (test code = Sodium Lvl) 139 135-145 [facility]2016-10-10 17:37:00 Test Item Value Reference Range Interpretation Comments Glucose Lvl (test code = Glucose Lvl) 168 70-99 [facility]2016-10-10 17:37:00 Test Item Value Reference Range Interpretation Comments BUN (test code = BUN) 8 7-22 [facility]2016-10-10 17:37:00 Test Item Value Reference Range Interpretation Comments Potassium Lvl (test code = Potassium 4.0 3.5-5.1 Lvl) [facility]2016-10-10 17:37:00 Test Item Value Reference Range Interpretation Comments AST (test code = AST) 49 See_Comment [Auto mated message] The system which ge nerated this result transmit yanely reference range : <=37. The reference range was not used to interpr et this result as brielle l/abnormal. [facility]2016-10-10 17:37:00 Test Item Value Reference Range Interpretation Comments ALT (test code = ALT) 49 See_Comment [Auto mated message] The system which ge nerated this result transmit yanely reference range : <=65. The reference range was not used to interpr et this result as brielle l/abnormal. [facility]2016-10-10 17:37:00 Test Item Value Reference Range Interpretation Comments Albumin Lvl (test code = Albumin Lvl) 3.5 3.5-5.0 [facility]2016-10-10 17:37:00 Test Item Value Reference Range Interpretation Comments Magnesium Lvl (test code = Magnesium 2.0 1.8-2.4 Lvl) [id number] 17:37:00 Test Item Value Reference Range Interpretation Comments WBC (test code = WBC) 11.4 3.7-10.4 [facility] HospitalEwcjwljWXDJXYKIPD7884-26-09 17:37:00 Test Item Value Reference Range Interpretation Comments MCV (test code = MCV) 74.4 80.0-94.0 [facility] HospitalLwoxhczNGUEVFYAXK1050-96-40 17:37:00 Test Item Value Reference Range Interpretation Comments RBC (test code = RBC) 5.89 4.70-6.10 [facility] HospitalCrzddhkGYQASJHRXK7841-12-81 17:37:00 Test Item Value Reference Range Interpretation Comments Hgb (test code = Hgb) 14.3 14.0-18.0 [facility] HospitalGzsddghEMHHIFKSFI3013-81-24 17:37:00 Test Item Value Reference Range Interpretation Comments Hct (test code = Hct) 43.8 42.0-54.0 [facility] HospitalHtwalokPAAKYTUEAX0804-43-91 17:37:00 Test Item Value Reference Range Interpretation Comments RDW (test code = RDW) 16.8 11.5-14.5 [facility] HospitalBhfulvkSOCEIZIISU9550-48-73 17:37:00 Test Item Value Reference Range Interpretation Comments Platelet (test code = Platelet) 294 133-450 [facility] HospitalFepmvhvUIPRRJTJHC3159-13-74 17:37:00 Test Item Value Reference Range Interpretation Comments MPV (test code = MPV) 9.2 7.4-10.4 [facility] HospitalCjnbqpbBMTRUEUJQI9729-63-68 17:37:00 Test Item Value Reference Range Interpretation Comments MCH (test code = MCH) 24.3 pg 27.0-31.0 [facility] HospitalWswwdluLDGZLGCZKM8703-32-66 17:37:00 Test Item Value Reference Range Interpretation Comments MCHC (test code = MCHC) 32.7 32.0-36.0 [facility] HospitalCljpdbiYGDATOGAEF9243-29-17 17:37:00 Test Item Value Reference Range Interpretation Comments Microcyte (test code = 2+ *ABN*(12/27/15 Microcyte) 12:37 PM) [facility] HospitalAofeebpKZYMTBQUSC9793-03-42 17:37:00 Test Item Value Reference Range Interpretation Comments Basophils # (test code 0.0 See_Comment [Aut omated message] The = Basophils #) system which generated this result tra nsmitted reference range : <=0.2. The reference r matthieu was not used to int erpret this result as normal/abnormal . [facility] HospitalBlpwfhlBIHFLZBEVD8324-46-62 17:37:00 Test Item Value Reference Range Interpretation Comments Eosinophils # (test code 0.3 See_Comment [A utomated message] The = Eosinophils #) system whic h generated this result tra nsmitted reference range : <=0.5. The reference r matthieu was not used to int erpret this result as normal/abnormal . [facility] Hospit[id number] 17:37:00 Test Item Value Reference Range Interpretation Comments Monocytes # (test code 0.5 See_Comment [Aut omated message] The = Monocytes #) system which generated this result tra nsmitted reference range : <=0.8. The reference r matthieu was not used to int erpret this result as normal/abnormal . [facility] HospitalEodmqtkKBZOSKWBYC2789-73-42 17:37:00 Test Item Value Reference Range Interpretation Comments Lymphocytes # (test code = Lymphocytes 2.5 1.0-5.5 #) [facility] HospitalZeocgwvNNKMCEQLNV9900-18-11 17:37:00 Test Item Value Reference Range Interpretation Comments Segs-Bands # (test code = Segs-Bands #) 8.1 1.5-8.1 [facility] HospitalZjpuvtdVPXYLHAKHB0614-19-87 17:37:00 Test Item Value Reference Range Interpretation Comments Basophils (test code = 0.0 See_Comment [Aut omated message] The Basophils) system which ge nerated this result tra nsmitted reference range : <=1.0. The reference r matthieu was not used to int erpret this result as normal/abnormal . [facility] Hospit[id number] 17:37:00 Test Item Value Reference Range Interpretation Comments Eosinophils (test code = 2.3 See_Comment [A utomated message] The Eosinophils) system which ge nerated this result tra nsmitted reference range : <=4.0. The reference r matthieu was not used to int erpret this result as normal/abnormal . [facility] HospitalUiigghgHAPNCZBFNG2449-86-55 17:37:00 Test Item Value Reference Range Interpretation Comments Lymphocytes (test code = Lymphocytes) 21.5 20.0-40.0 [facility] HospitalOezojsnWLXUKZHFNM5663-35-16 17:37:00 Test Item Value Reference Range Interpretation Comments Monocytes (test code = Monocytes) 4.1 2.0-12.0 [facility] HospitalBjjenvsDKUKHYLPCW6983-25-06 17:37:00 Test Item Value Reference Range Interpretation Comments Segs (test code = Segs) 72.1 45.0-75.0 [facility]2016-10-06 14:36:00 Test Item Value Reference Range Interpretation Comments eGFR (test code = eGFR) 111 [facility]2016-10-06 14:36:00 Test Item Value Reference Range Interpretation Comments AGAP (test code = AGAP) 13.8 10.0-20.0 [facility]2016-10-06 14:36:00 Test Item Value Reference Range Interpretation Comments A/G Ratio (test code = A/G Ratio) 0.7 0.7-1.6 [facility]2016-10-06 14:36:00 Test Item Value Reference Range Interpretation Comments Chloride Lvl (test code = Chloride Lvl) 104 95-109 [facility]2016-10-06 14:36:00 Test Item Value Reference Range Interpretation Comments Alk Phos (test code = Alk Phos) 98 39-136 [facility]2016-10-06 14:36:00 Test Item Value Reference Range Interpretation Comments AST (test code = AST) 42 See_Comment [Auto mated message] The system which ge nerated this result transmit yanely reference range : <=37. The reference range was not used to interpr et this result as brielle l/abnormal. [facility]2016-10-06 14:36:00 Test Item Value Reference Range Interpretation Comments ALT (test code = ALT) 45 See_Comment [Auto mated message] The system which ge nerated this result transmit yanely reference range : <=65. The reference range was not used to interpr et this result as brielle l/abnormal. [facility]2016-10-06 14:36:00 Test Item Value Reference Range Interpretation Comments Albumin Lvl (test code = Albumin Lvl) 3.5 3.5-5.0 [facility]2016-10-06 14:36:00 Test Item Value Reference Range Interpretation Comments Globulin (test code = Globulin) 4.9 2.7-4.2 [facility]2016-10-06 14:36:00 Test Item Value Reference Range Interpretation Comments B/C Ratio (test code = B/C Ratio) 16 6-25 [facility]2016-10-06 14:36:00 Test Item Value Reference Range Interpretation Comments Bili Total (test code = Bili Total) 0.3 0.2-1.3 [facility]2016-10-06 14:36:00 Test Item Value Reference Range Interpretation Comments Calcium Lvl (test code = Calcium Lvl) 8.7 8.5-10.5 [facility]2016-10-06 14:36:00 Test Item Value Reference Range Interpretation Comments CO2 (test code = CO2) 26 24-32 [facility]2016-10-06 14:36:00 Test Item Value Reference Range Interpretation Comments Total Protein (test code = Total 8.4 6.4-8.4 Protein) [facility]2016-10-06 14:36:00 Test Item Value Reference Range Interpretation Comments Creatinine Lvl (test code = Creatinine 0.77 0.50-1.40 Lvl) [facility]2016-10-06 14:36:00 Test Item Value Reference Range Interpretation Comments Potassium Lvl (test code = Potassium 3.8 3.5-5.1 Lvl) [facility]2016-10-06 14:36:00 Test Item Value Reference Range Interpretation Comments Sodium Lvl (test code = Sodium Lvl) 140 135-145 [facility]2016-10-06 14:36:00 Test Item Value Reference Range Interpretation Comments BUN (test code = BUN) 12 7-22 [facility]2016-10-06 14:36:00 Test Item Value Reference Range Interpretation Comments Glucose Lvl (test code = Glucose Lvl) 206 70-99 [facility]2016-10-06 14:36:00 Test Item Value Reference Range Interpretation Comments Magnesium Lvl (test code = Magnesium 2.0 1.8-2.4 Lvl) [place] [address]2016-10-06 14:36:00 Test Item Value Reference Range Interpretation Comments Testosterone Tot (test code = 168.9 348.0-1197.0 Testosterone Tot) [place] [address]2016-10-06 14:36:00 Test Item Value Reference Range Interpretation Comments Testosterone Free (test code = 9.0 6.8-21.5 Testosterone Free) [facility] [id number] 15:59:00 Test Item Value Reference Range Interpretation Comments UA Sq Epi (test code = UA Sq Epi) None Seen [facility] AND [id number] 15:59:00 Test Item Value Reference Range Interpretation Comments UA Urobilinogen (test code = UA <=1.0 mg/dL 0.1-1.0 Urobilinogen) [facility] AND [id number] 15:59:00 Test Item Value Reference Range Interpretation Comments UA WBC (test code = 1 See_Comment [Automa yanely message] The UA WBC) system which ge nerated this result transmit yanely reference range : <=5. The reference range was not used to interpr et this result as brielle l/abnormal. [facility] AND [id number] 15:59:00 Test Item Value Reference Range Interpretation Comments UA Bili (test code = Negative *NA*(12/12/15 UA Bili) 10:59 AM) [facility] AND [id number] 15:59:00 Test Item Value Reference Range Interpretation Comments UA Blood (test code = Negative (12/12/15 10:59 UA Blood) AM) [facility] AND [id number] 15:59:00 Test Item Value Reference Range Interpretation Comments UA Leuk Est (test Negative (12/12/15 10:59 code = UA Leuk Est) AM) [facility] AND [id number] 15:59:00 Test Item Value Reference Range Interpretation Comments UA Nitrite (test code Positive *ABN*(12/12/15 = UA Nitrite) 10:59 AM) [facility] [id number] 15:59:00 Test Item Value Reference Range Interpretation Comments UA Color (test code = Brown *ABN*(12/12/15 UA Color) 10:59 AM) [facility] [id number] 15:59:00 Test Item Value Reference Range Interpretation Comments UA Turbidity (test code = Clear (12/12/15 10:59 UA Turbidity) AM) [facility] AND [id number] 15:59:00 Test Item Value Reference Range Interpretation Comments UA Bacteria (test code = UA Occasional /HPF Bacteria) [facility] [id number] 15:59:00 Test Item Value Reference Range Interpretation Comments UA Amorph Danyelle (test code = Occasional /HPF UA Amorph Danyelle) [facility] AND [id number] 15:59:00 Test Item Value Reference Range Interpretation Comments UA RBC (test code = no gt See_Comment [Automa yanely message] The UA RBC) system which ge nerated this result transmit yanely reference range : <=2. The reference range was not used to interpr et this result as brielle l/abnormal. [facility] AND [id number] 15:59:00 Test Item Value Reference Range Interpretation Comments UA Mucus (test code = UA Mucus) Few /LPF [facility] [id number] 15:59:00 Test Item Value Reference Range Interpretation Comments UA Ketones (test code = UA Negative mg/dL Ketones) [facility] AND [id number] 15:59:00 Test Item Value Reference Range Interpretation Comments UA Glucose (test code = UA Negative mg/dL Glucose) [facility] AND [id number] 15:59:00 Test Item Value Reference Range Interpretation Comments UA Spec Grav (test code = UA Spec Grav) 1.013 [facility] AND [id number] 15:59:00 Test Item Value Reference Range Interpretation Comments UA Protein (test code = UA Negative mg/dL Protein) [facility] AND [id number] 15:59:00 Test Item Value Reference Range Interpretation Comments UA pH (test code = UA pH) 6.0 5.0-8.0 [facility] AND [id number] 11:39:00 Test Item Value Reference Range Interpretation Comments UA Sq Epi (test code = UA Sq Epi) None Seen [facility] [id number] 11:39:00 Test Item Value Reference Range Interpretation Comments UA Urobilinogen (test code = UA <=1.0 mg/dL 0.1-1.0 Urobilinogen) [facility] [id number] 11:39:00 Test Item Value Reference Range Interpretation Comments UA Nitrite (test code Negative (12/11/15 6:39 = UA Nitrite) AM) [facility] AND [id number] 11:39:00 Test Item Value Reference Range Interpretation Comments UA Leuk Est (test Negative (12/11/15 6:39 code = UA Leuk Est) AM) [facility] AND [id number] 11:39:00 Test Item Value Reference Range Interpretation Comments UA Bili (test code = Negative *NA*(12/11/15 UA Bili) 6:39 AM) [facility] AND [id number] 11:39:00 Test Item Value Reference Range Interpretation Comments UA Blood (test code = Negative (12/11/15 6:39 UA Blood) AM) [facility] AND [id number] 11:39:00 Test Item Value Reference Range Interpretation Comments UA pH (test code = UA pH) 5.5 5.0-8.0 [facility] AND [id number] 11:39:00 Test Item Value Reference Range Interpretation Comments UA Protein (test code = UA Protein) 20 mg/dL [facility] AND [id number] 11:39:00 Test Item Value Reference Range Interpretation Comments UA Turbidity (test code Slight *ABN*(12/11/15 = UA Turbidity) 6:39 AM) [facility] AND [id number] 11:39:00 Test Item Value Reference Range Interpretation Comments UA Spec Grav (test code = UA Spec Grav) 1.024 [facility] [id number] 11:39:00 Test Item Value Reference Range Interpretation Comments UA Glucose (test code = UA Negative mg/dL Glucose) [facility] AND [id number] 11:39:00 Test Item Value Reference Range Interpretation Comments UA WBC (test code = 8 See_Comment [Automa yanely message] The UA WBC) system which ge nerated this result transmit yanely reference range : <=5. The reference range was not used to interpr et this result as brielle l/abnormal. [facility] AND [id number] 11:39:00 Test Item Value Reference Range Interpretation Comments UA RBC (test code = 3 See_Comment [Automa yanely message] The UA RBC) system which ge nerated this result transmit yanely reference range : <=2. The reference range was not used to interpr et this result as brielle l/abnormal. [facility] AND [id number] 11:39:00 Test Item Value Reference Range Interpretation Comments UA Mucus (test code = UA Mucus) Many /LPF [facility] [id number] 11:39:00 Test Item Value Reference Range Interpretation Comments UA Bacteria (test code = UA Occasional /HPF Bacteria) [facility] AND [id number] 11:39:00 Test Item Value Reference Range Interpretation Comments UA Amorph Danyelle (test code = Occasional /HPF UA Amorph Danyelle) [facility] AND [id number] 11:39:00 Test Item Value Reference Range Interpretation Comments UA Color (test code = Brown *ABN*(12/11/15 UA Color) 6:39 AM) [facility] AND [id number] 11:39:00 Test Item Value Reference Range Interpretation Comments UA Ketones (test code = UA Negative mg/dL Ketones) [facility] [employer] [id number] 13:13:00 Test Item Value Reference Range Interpretation Comments ABO/Rh (test code = ABO/Rh) O POS [facility] [employer] [id number] 13:13:00 Test Item Value Reference Range Interpretation Comments Antibody Scrn (test Negative (12/09/15 8:13 code = Antibody Scrn) AM) [facility] AND [id number] 21:51:00 Test Item Value Reference Range Interpretation Comments UA RBC (test code = 8 See_Comment [Automa yanely message] The UA RBC) system which ge nerated this result transmit yanely reference range : <=2. The reference range was not used to interpr et this result as brielle l/abnormal. [facility] AND [id number] 21:51:00 Test Item Value Reference Range Interpretation Comments UA Sq Epi (test code = UA Sq Epi) None Seen [facility] [id number] 21:51:00 Test Item Value Reference Range Interpretation Comments UA Mucus (test code = UA Mucus) Few /LPF [facility] [id number] 21:51:00 Test Item Value Reference Range Interpretation Comments UA Blood (test code = Negative (12/07/15 4:51 UA Blood) PM) [facility] AND [id number] 21:51:00 Test Item Value Reference Range Interpretation Comments UA Leuk Est (test Negative (12/07/15 4:51 code = UA Leuk Est) PM) [facility] [id number] 21:51:00 Test Item Value Reference Range Interpretation Comments UA Nitrite (test code Negative (12/07/15 4:51 = UA Nitrite) PM) [facility] AND [id number] 21:51:00 Test Item Value Reference Range Interpretation Comments UA WBC (test code = no gt See_Comment [Automa yanely message] The UA WBC) system which ge nerated this result transmit yanely reference range : <=5. The reference range was not used to interpr et this result as brielle l/abnormal. [facility] AND [id number] 21:51:00 Test Item Value Reference Range Interpretation Comments UA Turbidity (test code = Clear (12/07/15 4:51 UA Turbidity) PM) [facility] AND [id number] 21:51:00 Test Item Value Reference Range Interpretation Comments UA Color (test code = Yellow *NA*(12/07/15 UA Color) 4:51 PM) [facility] AND [id number] 21:51:00 Test Item Value Reference Range Interpretation Comments UA Ketones (test code = UA Negative mg/dL Ketones) [facility] [id number] 21:51:00 Test Item Value Reference Range Interpretation Comments UA Bili (test code = Negative *NA*(12/07/15 UA Bili) 4:51 PM) [facility] AND [id number] 21:51:00 Test Item Value Reference Range Interpretation Comments UA Glucose (test code = UA Negative mg/dL Glucose) [facility] AND [id number] 21:51:00 Test Item Value Reference Range Interpretation Comments UA pH (test code = UA pH) 7.0 5.0-8.0 [facility] AND [id number] 21:51:00 Test Item Value Reference Range Interpretation Comments UA Protein (test code = UA Negative mg/dL Protein) [facility] AND [id number] 21:51:00 Test Item Value Reference Range Interpretation Comments UA Spec Grav (test code = UA Spec Grav) 1.022 [facility] [id number] 21:51:00 Test Item Value Reference Range Interpretation Comments UA Urobilinogen (test code = UA <=1.0 mg/dL 0.1-1.0 Urobilinogen) [facility]2016-09-19 09:06:00 Test Item Value Reference Range Interpretation Comments Phosphorus (test code = Phosphorus) 3.3 2.5-4.5 [facility]2016-09-12 09:46:00 Test Item Value Reference Range Interpretation Comments Phosphorus (test code = Phosphorus) 3.7 2.5-4.5 [id number] 09:46:00 Test Item Value Reference Range Interpretation Comments Plt Morph (test code = Normal (11/29/15 4:46 Plt Morph) AM) [facility]2016-09-05 09:24:00 Test Item Value Reference Range Interpretation Comments Phosphorus (test code = Phosphorus) 2.8 2.5-4.5 [facility] [id number] 09:53:00 Test Item Value Reference Range Interpretation Comments % Satur Fe (test code = % Satur Fe) 16 12-57 [facility] [id number] 09:53:00 Test Item Value Reference Range Interpretation Comments UIBC (test code = UIBC) 307 110-370 [facility]2016-08-24 09:53:00 Test Item Value Reference Range Interpretation Comments Iron (test code = Iron) 59 45-160 [facility] [id number] 09:53:00 Test Item Value Reference Range Interpretation Comments TIBC (test code = TIBC) 366 228-428 [facility] [id number] 09:53:00 Test Item Value Reference Range Interpretation Comments Ferritin Lvl (test code = Ferritin Lvl) 224 22-275 [id number] 09:53:00 Test Item Value Reference Range Interpretation Comments Plt Morph (test code = Normal (11/10/15 4:53 Plt Morph) AM) [id number] 09:53:00 Test Item Value Reference Range Interpretation Comments Prealbumin (test code = Prealbumin) 17.8 18.0-45.0 [id number] 09:53:00 Test Item Value Reference Range Interpretation Comments VLDL (test code = VLDL) 45 [facility] [id number] 09:53:00 Test Item Value Reference Range Interpretation Comments LDL (Calculated) (test code = LDL 181 (Calculated)) [facility] HospitalBeeuotvTQPUPC3384-03-10 09:53:00 Test Item Value Reference Range Interpretation Comments Trig (test code = Trig) 224 [facility] [id number] 09:53:00 Test Item Value Reference Range Interpretation Comments HDL (test code = HDL) 34 [facility] [id number] 09:53:00 Test Item Value Reference Range Interpretation Comments Chol (test code = Chol) 260 [facility]CnyeljoJMPDTM2644-89-45 09:53:00 Test Item Value Reference Range Interpretation Comments CHD Risk (test code = CHD Risk) 7.65 4.00-7.30 [facility] IFUYHYEQV9357-75-11 09:53:00 Test Item Value Reference Range Interpretation Comments Hgb A1C (test code = Hgb A1C) [facility]5 [facility] ZFZSHXR3848[facility]88-38 12:06:00 Test Item Value Reference Range Interpretation Comments ABO/Rh (test code = ABO/Rh) O POS [facility] NKUZHWB7876-29-84 12:06:00 Test Item Value Reference Range Interpretation Comments Antibody Scrn (test Negative (08/20/15 7:06 code = Antibody Scrn) AM) [facility]nmwGQYHKRGJGXZK5266-39-13 10:47:00 Test Item Value Reference Range Interpretation Comments AGAP (test code = AGAP) 12.8 10.0-20.0 [facility]MvcxlikTPPFNIMVUJGN7888-67-51 10:47:00 Test Item Value Reference Range Interpretation Comments CO2 (test code = CO2) 25 24-32 [facility] HospitalIzrkmmyHASXUEYWTEKE1805-81-54 10:47:00 Test Item Value Reference Range Interpretation Comments Calcium Lvl (test code = Calcium Lvl) 8.7 8.5-10.5 [facility] HospitalQwkbltjEIVWRUHNUZKP1074-22-75 10:47:00 Test Item Value Reference Range Interpretation Comments Creatinine Lvl (test code = Creatinine 0.66 0.50-1.40 Lvl) [facility] HospitalXtotwrhMQISPVZRDONQ7044-13-15 10:47:00 Test Item Value Reference Range Interpretation Comments eGFR (test code = eGFR) 119 [facility] HospitalHshaghwPSRKKHVEZYDU6560-63-77 10:47:00 Test Item Value Reference Range Interpretation Comments Sodium Lvl (test code = Sodium Lvl) 141 135-145 [facility] HospitalFxtcgmiHTGSZEVKZXRT3102-68-05 10:47:00 Test Item Value Reference Range Interpretation Comments Chloride Lvl (test code = Chloride Lvl) 108 95-109 [facility] HospitalRdnshlxCQBTGUWKTVKH6648-76-68 10:47:00 Test Item Value Reference Range Interpretation Comments Potassium Lvl (test code = Potassium 4.8 3.5-5.1 Lvl) [facility] HospitalCjryngoXMVYAPFSXARV9665-32-11 10:47:00 Test Item Value Reference Range Interpretation Comments BUN (test code = BUN) 9 7-22 [facility] HospitalZyoxvtlKAOMBPTGXCOA9848-62-15 10:47:00 Test Item Value Reference Range Interpretation Comments Glucose Lvl (test code = Glucose Lvl) 179 70-99 [facility] HospitalBcjuetrVOXVNERZTE4320-11-01 10:47:00 Test Item Value Reference Range Interpretation Comments Lymphocytes # (test code = Lymphocytes 2.1 1.0-5.5 #) [facility] HospitalYqfasjuJGUSFIPRIG1187-27-55 10:47:00 Test Item Value Reference Range Interpretation Comments Monocytes # (test code 0.8 See_Comment [Aut omated message] The = Monocytes #) system which generated this result tra nsmitted reference range : <=0.8. The reference r matthieu was not used to int erpret this result as normal/abnormal . [facility] HospitalXlurtscUZGJBFILOQ4106-87-60 10:47:00 Test Item Value Reference Range Interpretation Comments Basophils # (test code 0.1 See_Comment [Aut omated message] The = Basophils #) system which generated this result tra nsmitted reference range : <=0.2. The reference r matthieu was not used to int erpret this result as normal/abnormal . [facility] HospitalDmbzdmaWBIFVNYRLJ6520-13-22 10:47:00 Test Item Value Reference Range Interpretation Comments Microcyte (test code = 1+ *ABN*(08/02/15 Microcyte) 5:47 AM) [facility] HospitalYbdsacpKFRLYTTEWT9598-44-80 10:47:00 Test Item Value Reference Range Interpretation Comments Segs-Bands # (test code = Segs-Bands #) 6.2 1.5-8.1 [facility] HospitalXtkywajHJASGQVABY6299-85-90 10:47:00 Test Item Value Reference Range Interpretation Comments Eosinophils (test code = 1.8 See_Comment [A utomated message] The Eosinophils) system which ge nerated this result tra nsmitted reference range : <=4.0. The reference r matthieu was not used to int erpret this result as normal/abnormal . [facility] HospitalKxjwxniJUIIADTOGI9988-72-48 10:47:00 Test Item Value Reference Range Interpretation Comments Basophils (test code = 0.7 See_Comment [Aut omated message] The Basophils) system which ge nerated this result tra nsmitted reference range : <=1.0. The reference r matthieu was not used to int erpret this result as normal/abnormal . [facility] HospitalHwhnimwBVLYUGHERP6804-07-98 10:47:00 Test Item Value Reference Range Interpretation Comments Eosinophils # (test code 0.2 See_Comment [A utomated message] The = Eosinophils #) system whic h generated this result tra nsmitted reference range : <=0.5. The reference r matthieu was not used to int erpret this result as normal/abnormal . [facility] HospitalDvdfcetZDEADFULZI6630-30-91 10:47:00 Test Item Value Reference Range Interpretation Comments Segs (test code = Segs) 66.3 45.0-75.0 [facility] HospitalBzxwpghAFXHAKQDSO7128-30-55 10:47:00 Test Item Value Reference Range Interpretation Comments Monocytes (test code = Monocytes) 9.1 2.0-12.0 [facility] HospitalQuhpmjyAPMHHWAMVR9644-97-37 10:47:00 Test Item Value Reference Range Interpretation Comments Lymphocytes (test code = Lymphocytes) 22.1 20.0-40.0 [facility] HospitalUxwecnkOMHRFAZJGN8418-27-51 10:47:00 Test Item Value Reference Range Interpretation Comments MPV (test code = MPV) 8.5 7.4-10.4 [facility] HospitalXanogawGMRCLOFYJF0569-34-28 10:47:00 Test Item Value Reference Range Interpretation Comments Hgb (test code = Hgb) 14.2 14.0-18.0 [facility] HospitalOevemttICEDQKHTDV8366-22-30 10:47:00 Test Item Value Reference Range Interpretation Comments Hct (test code = Hct) 43.5 42.0-54.0 [facility] HospitalOgtcoosJIQLTKUNPC2722-31-66 10:47:00 Test Item Value Reference Range Interpretation Comments RBC (test code = RBC) 5.71 4.70-6.10 [facility] HospitalFwbjotmKXPUWPJYNC1594-87-26 10:47:00 Test Item Value Reference Range Interpretation Comments WBC (test code = WBC) 9.3 3.7-10.4 [facility] HospitalHhbnevzKDQJTEPSTM0554-90-31 10:47:00 Test Item Value Reference Range Interpretation Comments Platelet (test code = Platelet) 266 133-450 [facility] HospitalQciuxebJMECHJLXED6766-41-38 10:47:00 Test Item Value Reference Range Interpretation Comments RDW (test code = RDW) 16.3 11.5-14.5 [facility] HospitalZtppbdnYBMYUJCTSA3901-20-13 10:47:00 Test Item Value Reference Range Interpretation Comments MCHC (test code = MCHC) 32.5 32.0-36.0 [facility] HospitalFdktgvoWXSPILBWKY0911-87-40 10:47:00 Test Item Value Reference Range Interpretation Comments MCV (test code = MCV) 76.3 80.0-94.0 [facility] HospitalNnnhppaLOXGHEBMCC4645-40-76 10:47:00 Test Item Value Reference Range Interpretation Comments MCH (test code = MCH) 24.8 pg 27.0-31.0 [facility] HospitalXhrrexnZUFJUCFIEX1127-07-41 10:47:00 Test Item Value Reference Range Interpretation Comments INR (test code = INR) 0.96 0.85-1.17 [facility] HospitalMbdvisqWFVJCAHWQN5031-60-86 10:47:00 Test Item Value Reference Range Interpretation Comments PTT (test code = PTT) 30.5 s 22.9-35.8 [facility] HospitalGsseeoqIHZKCLQHGI0021-49-04 10:47:00 Test Item Value Reference Range Interpretation Comments PT (test code = PT) 13.1 s 12.0-14.7 [facility] HospitalPnykotwEBZXOPFCGAFH6734-17-37 10:10:00 Test Item Value Reference Range Interpretation Comments AGAP (test code = AGAP) 13.4 10.0-20.0 [facility] HospitalIgynuveWBCWXAXTKFGV4043-38-30 10:10:00 Test Item Value Reference Range Interpretation Comments eGFR (test code = eGFR) 120 [facility] HospitalCcryrofAONWBOEAPJLX1432-51-56 10:10:00 Test Item Value Reference Range Interpretation Comments Calcium Lvl (test code = Calcium Lvl) 8.9 8.5-10.5 [facility] HospitalVdxrpgsPGHXIZZHPQBA1110-03-29 10:10:00 Test Item Value Reference Range Interpretation Comments CO2 (test code = CO2) 26 24-32 [facility] HospitalQxlmjxsQQANWBGEIJGV4945-70-89 10:10:00 Test Item Value Reference Range Interpretation Comments Potassium Lvl (test code = Potassium 4.4 3.5-5.1 Lvl) [facility] HospitalQrclnyoPVINYPJNRYSY8547-68-98 10:10:00 Test Item Value Reference Range Interpretation Comments Chloride Lvl (test code = Chloride Lvl) 104 95-109 [facility] HospitalXyyzawqUFBTUZPYKJAQ3188-99-79 10:10:00 Test Item Value Reference Range Interpretation Comments Creatinine Lvl (test code = Creatinine 0.64 0.50-1.40 Lvl) [facility] HospitalYlgfkmlESZFMHJFPLBR1484-57-97 10:10:00 Test Item Value Reference Range Interpretation Comments Sodium Lvl (test code = Sodium Lvl) 139 135-145 [facility] HospitalUqajoxmWWDEHXCCURQG4794-57-44 10:10:00 Test Item Value Reference Range Interpretation Comments BUN (test code = BUN) 10 7-22 [facility] HospitalAlsvcdlWWMUJTTCRNFR0330-43-51 10:10:00 Test Item Value Reference Range Interpretation Comments Glucose Lvl (test code = Glucose Lvl) 95 70-99 [facility] HospitalMpoqbhbCRYMLSYQYI5073-29-53 10:10:00 Test Item Value Reference Range Interpretation Comments WBC (test code = WBC) 9.5 3.7-10.4 [facility] HospitalCmjmpmxZKUGCBVHVS9203-69-96 10:10:00 Test Item Value Reference Range Interpretation Comments RBC (test code = RBC) 5.75 4.70-6.10 [facility] HospitalAaqootqIHUPTECXUS9434-62-45 10:10:00 Test Item Value Reference Range Interpretation Comments Hgb (test code = Hgb) 13.8 14.0-18.0 [facility] HospitalYsxorbrYFKVLONIJQ1001-08-57 10:10:00 Test Item Value Reference Range Interpretation Comments MCV (test code = MCV) 75.5 80.0-94.0 [facility] HospitalGiihvegNURUAFUAKD6503-63-66 10:10:00 Test Item Value Reference Range Interpretation Comments MCH (test code = MCH) 24.0 pg 27.0-31.0 [facility] HospitalBfijdftWMWCKECCEH4709-96-23 10:10:00 Test Item Value Reference Range Interpretation Comments Hct (test code = Hct) 43.4 42.0-54.0 [facility] HospitalIizehixSYHACNYYMU5702-78-52 10:10:00 Test Item Value Reference Range Interpretation Comments RDW (test code = RDW) 15.1 11.5-14.5 [facility] HospitalMroectaNORCHYUGHI7018-97-19 10:10:00 Test Item Value Reference Range Interpretation Comments MCHC (test code = MCHC) 31.8 32.0-36.0 [facility] HospitalIzynxuaSWNXJHDIEU2161-42-75 10:10:00 Test Item Value Reference Range Interpretation Comments MPV (test code = MPV) 9.3 7.4-10.4 [facility] HospitalEpkctvkYQULKWRUKI7777-56-01 10:10:00 Test Item Value Reference Range Interpretation Comments Platelet (test code = Platelet) 235 133-450 [facility] HospitalUlbkiteWOHCWYMJIY4683-98-72 10:10:00 Test Item Value Reference Range Interpretation Comments Basophils # (test code 0.1 See_Comment [Aut omated message] The = Basophils #) system which generated this result tra nsmitted reference range : <=0.2. The reference r matthieu was not used to int erpret this result as normal/abnormal . [facility] HospitalYtdylkaZHSJASLQFW2855-26-73 10:10:00 Test Item Value Reference Range Interpretation Comments Eosinophils # (test code 0.2 See_Comment [A utomated message] The = Eosinophils #) system whic h generated this result tra nsmitted reference range : <=0.5. The reference r matthieu was not used to int erpret this result as normal/abnormal . [facility] HospitalEodgxodMZPSECWIXI5459-02-86 10:10:00 Test Item Value Reference Range Interpretation Comments Microcyte (test code = 2+ *ABN*(06/28/15 Microcyte) 5:10 AM) [facility] HospitalTtppecgXRCKLFILYC8685-93-85 10:10:00 Test Item Value Reference Range Interpretation Comments Segs (test code = Segs) 59.7 45.0-75.0 [facility] HospitalMhydgbnJVJSSOCZMQ6189-39-20 10:10:00 Test Item Value Reference Range Interpretation Comments Lymphocytes (test code = Lymphocytes) 28.2 20.0-40.0 [facility] HospitalUmkluesNCXJRQESIQ2427-11-84 10:10:00 Test Item Value Reference Range Interpretation Comments Eosinophils (test code = 2.1 See_Comment [A utomated message] The Eosinophils) system which ge nerated this result tra nsmitted reference range : <=4.0. The reference r matthieu was not used to int erpret this result as normal/abnormal . [facility] HospitalDwubseaFVYGVZXEUT1414-08-92 10:10:00 Test Item Value Reference Range Interpretation Comments Monocytes (test code = Monocytes) 9.4 2.0-12.0 [facility] HospitalXzvmzykGLLUQGWLRG3495-46-77 10:10:00 Test Item Value Reference Range Interpretation Comments Basophils (test code = 0.6 See_Comment [Aut omated message] The Basophils) system which ge nerated this result tra nsmitted reference range : <=1.0. The reference r matthieu was not used to int erpret this result as normal/abnormal . [facility] HospitalZadobnpNGPFXASYOF9779-67-58 10:10:00 Test Item Value Reference Range Interpretation Comments Monocytes # (test code 0.9 See_Comment [Aut omated message] The = Monocytes #) system which generated this result tra nsmitted reference range : <=0.8. The reference r matthieu was not used to int erpret this result as normal/abnormal . [facility] HospitalMczmyxyFXGZTEVEXQ1057-59-41 10:10:00 Test Item Value Reference Range Interpretation Comments Segs-Bands # (test code = Segs-Bands #) 5.6 1.5-8.1 [facility] HospitalHycguqrRVQAFDOPJJ8223-98-89 10:10:00 Test Item Value Reference Range Interpretation Comments Lymphocytes # (test code = Lymphocytes 2.7 1.0-5.5 #) [facility] HospitalPovzmwkKMOLEXYJPOSI7015-91-64 10:04:00 Test Item Value Reference Range Interpretation Comments AGAP (test code = AGAP) 13.5 10.0-20.0 [facility] HospitalFvcgwrdYFCOXVMHUUOI5225-12-94 10:04:00 Test Item Value Reference Range Interpretation Comments eGFR (test code = eGFR) 116 [facility] HospitalDtmcbilOEUOGQWTIMTR4359-76-42 10:04:00 Test Item Value Reference Range Interpretation Comments Glucose Lvl (test code = Glucose Lvl) 93 70-99 [facility] HospitalCyowemrPJHQKBFPWZUA2395-16-05 10:04:00 Test Item Value Reference Range Interpretation Comments BUN (test code = BUN) 11 7-22 [facility] HospitalFypjwjsWJCGUDOCODRI4441-46-75 10:04:00 Test Item Value Reference Range Interpretation Comments Potassium Lvl (test code = Potassium 4.5 3.5-5.1 Lvl) [facility] HospitalWrvyujvWJHJTCCFMPKN9721-85-81 10:04:00 Test Item Value Reference Range Interpretation Comments Chloride Lvl (test code = Chloride Lvl) 107 95-109 [facility] HospitalMzbscasGUSEETFXTFHV2037-99-20 10:04:00 Test Item Value Reference Range Interpretation Comments Creatinine Lvl (test code = Creatinine 0.69 0.50-1.40 Lvl) [facility] HospitalBktyprcYTHOBLVRZARX3152-60-31 10:04:00 Test Item Value Reference Range Interpretation Comments Sodium Lvl (test code = Sodium Lvl) 141 135-145 [facility] HospitalTuvrijaCAMGPIXITDXL9095-95-26 10:04:00 Test Item Value Reference Range Interpretation Comments Calcium Lvl (test code = Calcium Lvl) 8.6 8.5-10.5 [facility] HospitalQczljvuBXYNOHKIEUDV7017-23-29 10:04:00 Test Item Value Reference Range Interpretation Comments CO2 (test code = CO2) 25 24-32 [facility] HospitalDsiurbiKEPIPXKSYQ4220-11-83 10:04:00 Test Item Value Reference Range Interpretation Comments Microcyte (test code = 1+ *ABN*(06/21/15 5:04 Microcyte) AM) [facility] HospitalDxfxhxnWLCGZBCVKV3311-34-81 10:04:00 Test Item Value Reference Range Interpretation Comments Basophils # (test code 0.1 See_Comment [Aut omated message] The = Basophils #) system which generated this result tra nsmitted reference range : <=0.2. The reference r matthieu was not used to int erpret this result as normal/abnormal . [facility] HospitalYglzxxxQFAVMEEWJX3299-32-85 10:04:00 Test Item Value Reference Range Interpretation Comments Eosinophils # (test code 0.2 See_Comment [A utomated message] The = Eosinophils #) system whic h generated this result tra nsmitted reference range : <=0.5. The reference r matthieu was not used to int erpret this result as normal/abnormal . [facility] HospitalHjmkkdfXTDHZVGCSN6412-94-21 10:04:00 Test Item Value Reference Range Interpretation Comments Monocytes # (test code 0.7 See_Comment [Aut omated message] The = Monocytes #) system which generated this result tra nsmitted reference range : <=0.8. The reference r matthieu was not used to int erpret this result as normal/abnormal . [facility] HospitalMjspmbjVBTLTFLFSO2306-85-31 10:04:00 Test Item Value Reference Range Interpretation Comments Segs-Bands # (test code = Segs-Bands #) 5.0 1.5-8.1 [facility] HospitalNrqinngQWCTRCIEOF6033-43-43 10:04:00 Test Item Value Reference Range Interpretation Comments Basophils (test code = 0.6 See_Comment [Aut omated message] The Basophils) system which ge nerated this result tra nsmitted reference range : <=1.0. The reference r matthieu was not used to int erpret this result as normal/abnormal . [facility] HospitalTrzcnkwLKDDFCIDCQ1047-98-25 10:04:00 Test Item Value Reference Range Interpretation Comments Eosinophils (test code = 2.1 See_Comment [A utomated message] The Eosinophils) system which ge nerated this result tra nsmitted reference range : <=4.0. The reference r matthieu was not used to int erpret this result as normal/abnormal . [facility] HospitalYgmrbvaMFGPGJALDM6467-23-42 10:04:00 Test Item Value Reference Range Interpretation Comments Monocytes (test code = Monocytes) 8.6 2.0-12.0 [facility] HospitalUykoxffRIVEEUIHRI5659-96-95 10:04:00 Test Item Value Reference Range Interpretation Comments Lymphocytes (test code = Lymphocytes) 30.3 20.0-40.0 [facility] HospitalNmisbinAXISRYKFOA7089-88-90 10:04:00 Test Item Value Reference Range Interpretation Comments Segs (test code = Segs) 58.4 45.0-75.0 [facility] HospitalMpbaaygKAVQFSMFUZ2114-76-30 10:04:00 Test Item Value Reference Range Interpretation Comments Plt Morph (test code = Normal (06/21/15 5:04 AM) Plt Morph) [facility] HospitalJxebpbkKKWSFMCCYQ4596-40-91 10:04:00 Test Item Value Reference Range Interpretation Comments Lymphocytes # (test code = Lymphocytes 2.6 1.0-5.5 #) [facility] HospitalMcaddjzNFVALFJPUX3812-22-37 10:04:00 Test Item Value Reference Range Interpretation Comments MPV (test code = MPV) 9.5 7.4-10.4 [facility] HospitalNgecljjQMTRYHLSKA6625-05-81 10:04:00 Test Item Value Reference Range Interpretation Comments Platelet (test code = Platelet) 273 133-450 [facility] HospitalCnwaariAZTNMJQLIL4897-24-17 10:04:00 Test Item Value Reference Range Interpretation Comments MCH (test code = MCH) 23.5 pg 27.0-31.0 [facility] HospitalVkmpqdpCNZLKCCIHP3085-58-92 10:04:00 Test Item Value Reference Range Interpretation Comments MCV (test code = MCV) 76.7 80.0-94.0 [facility] HospitalLgimgncUDADAUMLAD1129-83-10 10:04:00 Test Item Value Reference Range Interpretation Comments RDW (test code = RDW) 15.2 11.5-14.5 [facility] HospitalXdyxgfeZAMTAHZNIM3394-84-89 10:04:00 Test Item Value Reference Range Interpretation Comments MCHC (test code = MCHC) 30.7 32.0-36.0 [facility] HospitalYtvlnidOCTILIFUUQ4986-67-16 10:04:00 Test Item Value Reference Range Interpretation Comments Hct (test code = Hct) 43.5 42.0-54.0 [facility] HospitalYwfvepdNETLWNCCZJ7840-93-28 10:04:00 Test Item Value Reference Range Interpretation Comments Hgb (test code = Hgb) 13.3 14.0-18.0 [facility] HospitalZvfsamqBOVZVBOYYM4295-48-28 10:04:00 Test Item Value Reference Range Interpretation Comments RBC (test code = RBC) 5.67 4.70-6.10 [facility] HospitalPdbgcuiIXYMQQNZTQ9445-70-79 10:04:00 Test Item Value Reference Range Interpretation Comments WBC (test code = WBC) 8.6 3.7-10.4 [facility] HospitalYiktwsaGQDZIYOLTPNZ3896-57-34 09:06:00 Test Item Value Reference Range Interpretation Comments AGAP (test code = AGAP) 12.1 10.0-20.0 [facility] HospitalLwebxzmQGUIOOGLSHAJ7991-55-39 09:06:00 Test Item Value Reference Range Interpretation Comments eGFR (test code = eGFR) 121 [facility] HospitalVjfzcljNGGFPUNJGPTW8133-34-87 09:06:00 Test Item Value Reference Range Interpretation Comments Creatinine Lvl (test code = Creatinine 0.64 0.50-1.40 Lvl) [facility] HospitalOdqcbgvJKXQKUIUFYMV1969-18-44 09:06:00 Test Item Value Reference Range Interpretation Comments BUN (test code = BUN) 12 7-22 [facility] HospitalUqhiylwQGVWNJLTPTZG5977-74-33 09:06:00 Test Item Value Reference Range Interpretation Comments Glucose Lvl (test code = Glucose Lvl) 91 70-99 [facility] HospitalToqjuilQQGQYFSHSWMM1704-10-52 09:06:00 Test Item Value Reference Range Interpretation Comments Chloride Lvl (test code = Chloride Lvl) 107 95-109 [facility] HospitalFqirfowMTOUNSKQVBNV6972-68-96 09:06:00 Test Item Value Reference Range Interpretation Comments Potassium Lvl (test code = Potassium 4.1 3.5-5.1 Lvl) [facility] HospitalWfyqfmxJINUBSDQDSHD7528-14-37 09:06:00 Test Item Value Reference Range Interpretation Comments CO2 (test code = CO2) 25 24-32 [facility] HospitalWrwzcuaYODGFWPGUPOA8652-55-29 09:06:00 Test Item Value Reference Range Interpretation Comments Sodium Lvl (test code = Sodium Lvl) 140 135-145 [facility] HospitalGkmgfxkHIDKFGORZGOC3319-34-93 09:06:00 Test Item Value Reference Range Interpretation Comments Calcium Lvl (test code = Calcium Lvl) 8.4 8.5-10.5 [facility] HospitalFrqfyihXFEFUCOBAB7678-10-26 09:06:00 Test Item Value Reference Range Interpretation Comments MCV (test code = MCV) 75.6 80.0-94.0 [place] 603826-03-29 09:06:00 Test Item Value Reference Range Interpretation Comments Hct (test code = Hct) 42.8 42.0-54.0 [facility] HospitalSpfzmkqQAPVCLOWPF5690-19-32 09:06:00 Test Item Value Reference Range Interpretation Comments MPV (test code = MPV) 9.0 7.4-10.4 [facility] HospitalWaiufyyHYZTLCNMRP8504-84-50 09:06:00 Test Item Value Reference Range Interpretation Comments Platelet (test code = Platelet) 326 133-450 [facility] HospitalFfbbxjxKIEJPQUNDH6051-57-26 09:06:00 Test Item Value Reference Range Interpretation Comments WBC (test code = WBC) 9.4 3.7-10.4 [facility] HospitalIkktzkvGFNWFIZDKK2060-71-65 09:06:00 Test Item Value Reference Range Interpretation Comments RBC (test code = RBC) 5.66 4.70-6.10 [facility] HospitalRtbvyegRVZCZRIXSG5487-58-36 09:06:00 Test Item Value Reference Range Interpretation Comments MCH (test code = MCH) 24.0 pg 27.0-31.0 [facility] HospitalJhqoizgVSWNPDCFLJ0574-63-63 09:06:00 Test Item Value Reference Range Interpretation Comments Hgb (test code = Hgb) 13.6 14.0-18.0 [facility] HospitalArdinhyGVFSFTQXDX1737-50-60 09:06:00 Test Item Value Reference Range Interpretation Comments RDW (test code = RDW) 14.8 11.5-14.5 [facility] HospitalDpcynshBVHUWATBRD1216-88-25 09:06:00 Test Item Value Reference Range Interpretation Comments MCHC (test code = MCHC) 31.8 32.0-36.0 [facility] HospitalBxyrbblRZUVTGIDVI2688-04-14 09:06:00 Test Item Value Reference Range Interpretation Comments Eosinophils # (test code 0.2 See_Comment [A utomated message] The = Eosinophils #) system whic h generated this result tra nsmitted reference range : <=0.5. The reference r matthieu was not used to int erpret this result as normal/abnormal . [facility] HospitalPweimtdPXEVHTOOVB7219-64-01 09:06:00 Test Item Value Reference Range Interpretation Comments Basophils # (test code 0.0 See_Comment [Aut omated message] The = Basophils #) system which generated this result tra nsmitted reference range : <=0.2. The reference r matthieu was not used to int erpret this result as normal/abnormal . [facility] HospitalDwxdiwfMIQXQFXLTV8445-39-86 09:06:00 Test Item Value Reference Range Interpretation Comments Microcyte (test code = 2+ *ABN*(06/15/15 Microcyte) 4:06 AM) [facility] HospitalOzwkozaMXIEYPWAOF0271-63-73 09:06:00 Test Item Value Reference Range Interpretation Comments Eosinophils (test code = 2.0 See_Comment [A utomated message] The Eosinophils) system which ge nerated this result tra nsmitted reference range : <=4.0. The reference r matthieu was not used to int erpret this result as normal/abnormal . [facility] HospitalVtgtepmLVHKKSZXMA6260-55-62 09:06:00 Test Item Value Reference Range Interpretation Comments Basophils (test code = 0.4 See_Comment [Aut omated message] The Basophils) system which ge nerated this result tra nsmitted reference range : <=1.0. The reference r matthieu was not used to int erpret this result as normal/abnormal . [facility] HospitalWmfdyawDCRKMALQOY4582-85-98 09:06:00 Test Item Value Reference Range Interpretation Comments Segs-Bands # (test code = Segs-Bands #) 5.8 1.5-8.1 [facility] HospitalNfmaiglPVFCNWADKO1764-08-87 09:06:00 Test Item Value Reference Range Interpretation Comments Monocytes (test code = Monocytes) 9.6 2.0-12.0 [facility] HospitalVwhikvtHVUPUKTQID5344-13-10 09:06:00 Test Item Value Reference Range Interpretation Comments Lymphocytes (test code = Lymphocytes) 26.3 20.0-40.0 [facility] HospitalCwegmulJCODMAAVLF1320-03-92 09:06:00 Test Item Value Reference Range Interpretation Comments Segs (test code = Segs) 61.7 45.0-75.0 [facility] HospitalSobvsqfIBRCAIGSFA2716-36-40 09:06:00 Test Item Value Reference Range Interpretation Comments Monocytes # (test code 0.9 See_Comment [Aut omated message] The = Monocytes #) system which generated this result tra nsmitted reference range : <=0.8. The reference r matthieu was not used to int erpret this result as normal/abnormal . [facility] HospitalOzdsevxHSLVBLWLGK8611-76-37 09:06:00 Test Item Value Reference Range Interpretation Comments Lymphocytes # (test code = Lymphocytes 2.5 1.0-5.5 #) [facility] HospitalVrkjnjtCGUFQCRBZA1091-23-09 17:04:00 Test Item Value Reference Range Interpretation Comments Plt Morph (test code = Normal (06/14/15 12:04 Plt Morph) PM) [facility]2016-03-24 10:18:00 Test Item Value Reference Range Interpretation Comments Phosphorus (test code = Phosphorus) 2.7 2.5-4.5 [facility]2016-03-24 10:18:00 Test Item Value Reference Range Interpretation Comments Alk Phos (test code = Alk Phos) 104 39-136 [facility]2016-03-24 10:18:00 Test Item Value Reference Range Interpretation Comments ALT (test code = ALT) 54 See_Comment [Auto mated message] The system which ge nerated this result transmit yanely reference range : <=65. The reference range was not used to interpr et this result as brielle l/abnormal. [facility]2016-03-24 10:18:00 Test Item Value Reference Range Interpretation Comments AST (test code = AST) 33 See_Comment [Auto mated message] The system which ge nerated this result transmit yanely reference range : <=37. The reference range was not used to interpr et this result as brielle l/abnormal. [facility]2016-03-24 10:18:00 Test Item Value Reference Range Interpretation Comments Bili Total (test code = Bili Total) 0.2 0.2-1.3 [facility]2016-03-24 10:18:00 Test Item Value Reference Range Interpretation Comments Albumin Lvl (test code = Albumin Lvl) 3.4 3.5-5.0 [facility]2016-03-24 10:18:00 Test Item Value Reference Range Interpretation Comments Total Protein (test code = Total 7.6 6.4-8.4 Protein) [facility]2016-03-24 10:18:00 Test Item Value Reference Range Interpretation Comments A/G Ratio (test code = A/G Ratio) 0.8 0.7-1.6 [place] [id number] 10:18:00 Test Item Value Reference Range Interpretation Comments B/C Ratio (test code = B/C Ratio) 18 6-25 [facility] [id number] 10:18:00 Test Item Value Reference Range Interpretation Comments Globulin (test code = Globulin) 4.2 2.0-4.0 [facility] [id number] 10:18:00 Test Item Value Reference Range Interpretation Comments Magnesium Lvl (test code = Magnesium 2.0 1.8-2.4 Lvl) [facility]BgrqwhfJWNKLKVVWI8135-51-43 10:18:00 Test Item Value Reference Range Interpretation Comments PTT (test code = PTT) 32.7 s 22.9-35.8 [facility] HospitalIsjsmcjPXDGXSXBFI6754-34-48 10:18:00 Test Item Value Reference Range Interpretation Comments PT (test code = PT) 12.7 s 12.0-14.7 [facility] HospitalSxoblndWSTCWBYUKD9157-62-03 10:18:00 Test Item Value Reference Range Interpretation Comments INR (test code = INR) 0.92 0.85-1.17 [facility] HospitalFslnkiyBLMZGSWBHF7906-17-49 10:18:00 Test Item Value Reference Range Interpretation Comments Prealbumin (test code = Prealbumin) 15.0 18.0-45.0 [facility] [id number] 10:18:00 Test Item Value Reference Range Interpretation Comments UA Leuk Est (test Negative (06/10/15 5:18 code = UA Leuk Est) AM) [facility] AND [id number] 10:18:00 Test Item Value Reference Range Interpretation Comments UA Nitrite (test code Negative (06/10/15 5:18 = UA Nitrite) AM) [facility] AND [id number] 10:18:00 Test Item Value Reference Range Interpretation Comments UA Blood (test code = Negative (06/10/15 5:18 UA Blood) AM) [facility] AND [id number] 10:18:00 Test Item Value Reference Range Interpretation Comments UA Urobilinogen (test code = UA 0.2 0.1-1.0 Urobilinogen) [facility] AND [id number] 10:18:00 Test Item Value Reference Range Interpretation Comments UA Bili (test code = Negative *NA*(3/24/16 UA Bili) 5:18 AM) [facility] AND [id number] 10:18:00 Test Item Value Reference Range Interpretation Comments UA Ketones (test code Negative *NA*(06/10/15 = UA Ketones) 5:18 AM) [facility] AND [id number] 10:18:00 Test Item Value Reference Range Interpretation Comments UA Protein (test code Negative (06/10/15 5:18 = UA Protein) AM) [facility] AND [id number] 10:18:00 Test Item Value Reference Range Interpretation Comments UA pH (test code = UA pH) 5.5 1 5.0-8.0 [facility] AND [id number] 10:18:00 Test Item Value Reference Range Interpretation Comments UA Glucose (test code Negative (06/10/15 5:18 = UA Glucose) AM) [facility] AND [id number] 10:18:00 Test Item Value Reference Range Interpretation Comments UA Spec Grav (test code = UA Spec 1.025 1 Grav) [facility] AND [id number] 10:18:00 Test Item Value Reference Range Interpretation Comments UA Turbidity (test code Cloudy *ABN*(06/10/15 = UA Turbidity) 5:18 AM) [facility] AND [id number] 10:18:00 Test Item Value Reference Range Interpretation Comments UA Color (test code = Yellow *NA*(06/10/15 UA Color) 5:18 AM) [facility] AND [id number] 10:18:00 Test Item Value Reference Range Interpretation Comments UA Bacteria (test code = UA Occasional /HPF Bacteria) [facility] AND [id number] 10:18:00 Test Item Value Reference Range Interpretation Comments UA Amorph Danyelle (test code = UA Many /HPF Amorph Danyelle) [facility] AND [id number] 10:18:00 Test Item Value Reference Range Interpretation Comments UA Sq Epi (test code = None Seen (06/10/15 5:18 UA Sq Epi) AM) [facility] HospitalMogjjytXPKNSMBJNY5057-18-46 14:45:00 Test Item Value Reference Range Interpretation Comments PTT (test code = PTT) 30.4 s 22.9-35.8 [facility] HospitalHfwfhkhTGTUMJVLKN1660-44-56 14:45:00 Test Item Value Reference Range Interpretation Comments INR (test code = INR) 1.03 0.85-1.17 [facility]QppydggZJWCYUZZXB4016-56-43 14:45:00 Test Item Value Reference Range Interpretation Comments PT (test code = PT) 13.8 s 12.0-14.7 [facility] [id number] 13:50:00 Test Item Value Reference Range Interpretation Comments Antibody Scrn (test Negative (04/27/15 7:50 code = Antibody Scrn) AM) [facility] [id number] 13:50:00 Test Item Value Reference Range Interpretation Comments ABO/Rh (test code = ABO/Rh) O POS [facility] [id number] 13:50:00 Test Item Value Reference Range Interpretation Comments eGFR (test code = eGFR) 111 [facility] [id number] 13:50:00 Test Item Value Reference Range Interpretation Comments Calcium Lvl (test code = Calcium Lvl) 9.3 8.5-10.5 [facility] [id number] 13:50:00 Test Item Value Reference Range Interpretation Comments Chloride Lvl (test code = Chloride Lvl) 107 95-109 [facility] [id number] 13:50:00 Test Item Value Reference Range Interpretation Comments Potassium Lvl (test code = Potassium 4.5 3.5-5.1 Lvl) [facility] [id number] 13:50:00 Test Item Value Reference Range Interpretation Comments Sodium Lvl (test code = Sodium Lvl) 140 135-145 [facility] [id number] 13:50:00 Test Item Value Reference Range Interpretation Comments CO2 (test code = CO2) 27 24-32 [facility] [id number] 13:50:00 Test Item Value Reference Range Interpretation Comments Glucose Lvl (test code = Glucose Lvl) 105 70-99 [facility] [id number] 13:50:00 Test Item Value Reference Range Interpretation Comments BUN (test code = BUN) 10 7-22 [facility] [id number] 13:50:00 Test Item Value Reference Range Interpretation Comments Creatinine Lvl (test code = Creatinine 0.78 0.50-1.40 Lvl) [facility]2016-02-09 13:50:00 Test Item Value Reference Range Interpretation Comments AGAP (test code = AGAP) 10.5 10.0-20.0 [facility] HospitalHlcnacoUVUXIGEAXR3822-20-92 13:50:00 Test Item Value Reference Range Interpretation Comments Monocytes # (test code 0.4 See_Comment [Aut omated message] The = Monocytes #) system which generated this result tra nsmitted reference range : <=0.8. The reference r matthieu was not used to int erpret this result as normal/abnormal . [facility] HospitalJxkhkyxLOLULSQIFC4112-07-43 13:50:00 Test Item Value Reference Range Interpretation Comments Basophils # (test code 0.0 See_Comment [Aut omated message] The = Basophils #) system which generated this result tra nsmitted reference range : <=0.2. The reference r matthieu was not used to int erpret this result as normal/abnormal . [facility] HospitalPkhnsxpNTXXZJSHWD3482-99-95 13:50:00 Test Item Value Reference Range Interpretation Comments Eosinophils # (test code 0.2 See_Comment [A utomated message] The = Eosinophils #) system whic h generated this result tra nsmitted reference range : <=0.5. The reference r matthieu was not used to int erpret this result as normal/abnormal . [facility] HospitalGnnwwnoKHKKREBLWM3615-75-70 13:50:00 Test Item Value Reference Range Interpretation Comments Lymphocytes # (test code = Lymphocytes 2.1 1.0-5.5 #) [facility] HospitalEzfwoezVEMJHBEESE9828-79-02 13:50:00 Test Item Value Reference Range Interpretation Comments Microcyte (test code = 1+ *ABN*(04/27/15 7:50 Microcyte) AM) [facility] HospitalRknwlirJIBEUKSBPW0767-75-45 13:50:00 Test Item Value Reference Range Interpretation Comments Segs (test code = Segs) 65.2 45.0-75.0 [facility] HospitalAybfameDLAVXFZEWV8242-42-69 13:50:00 Test Item Value Reference Range Interpretation Comments Monocytes (test code = Monocytes) 5.3 2.0-12.0 [facility] HospitalZnhsymbIDIEMXYSZL7240-78-87 13:50:00 Test Item Value Reference Range Interpretation Comments Basophils (test code = 0.4 See_Comment [Aut omated message] The Basophils) system which ge nerated this result tra nsmitted reference range : <=1.0. The reference r matthieu was not used to int erpret this result as normal/abnormal . [facility] HospitalQtuustpJDRYRINCOX9158-65-86 13:50:00 Test Item Value Reference Range Interpretation Comments Lymphocytes (test code = Lymphocytes) 26.8 20.0-40.0 [facility] HospitalIqjjlszFARJDEKFFY3999-35-53 13:50:00 Test Item Value Reference Range Interpretation Comments Segs-Bands # (test code = Segs-Bands #) 5.2 1.5-8.1 [facility] HospitalPhrcrraKNDDRZKUIO5459-38-82 13:50:00 Test Item Value Reference Range Interpretation Comments Eosinophils (test code = 2.3 See_Comment [A utomated message] The Eosinophils) system which ge nerated this result tra nsmitted reference range : <=4.0. The reference r matthieu was not used to int erpret this result as normal/abnormal . [facility] HospitalDwhgwzmDDLHWGQGYB6608-81-58 13:50:00 Test Item Value Reference Range Interpretation Comments Hgb (test code = Hgb) 15.2 14.0-18.0 [facility] HospitalUocsxbzCZZAZFUPOS8309-69-67 13:50:00 Test Item Value Reference Range Interpretation Comments WBC (test code = WBC) 7.9 3.7-10.4 [facility] HospitalEkyuvpsWGOHEZAWQI8696-51-15 13:50:00 Test Item Value Reference Range Interpretation Comments RBC (test code = RBC) 5.96 4.70-6.10 [facility] HospitalTvenjxhSKLHRVCNEH5812-65-44 13:50:00 Test Item Value Reference Range Interpretation Comments MCH (test code = MCH) 25.4 pg 27.0-31.0 [facility] HospitalEpagpvgIKQWLMFFYU7591-41-86 13:50:00 Test Item Value Reference Range Interpretation Comments MCHC (test code = MCHC) 32.3 32.0-36.0 [facility] HospitalFastcwtNSVQFRBVIA3045-40-91 13:50:00 Test Item Value Reference Range Interpretation Comments RDW (test code = RDW) 15.3 11.5-14.5 [facility] HospitalDnwqnnyCZNAGCNZUZ8217-78-79 13:50:00 Test Item Value Reference Range Interpretation Comments Platelet (test code = Platelet) 313 133-450 [facility] HospitalDyrayfnSDCJTUIQFM9530-88-21 13:50:00 Test Item Value Reference Range Interpretation Comments MPV (test code = MPV) 8.2 7.4-10.4 [facility] HospitalCijotybZLNHYIXYNP4333-14-72 13:50:00 Test Item Value Reference Range Interpretation Comments MCV (test code = MCV) 78.6 80.0-94.0 [facility] HospitalMtctkbpXBCLXHHLXM0808-35-24 13:50:00 Test Item Value Reference Range Interpretation Comments Hct (test code = Hct) 46.9 42.0-54.0 [facility]2015-01-18 14:22:00 Test Item Value Reference Range Interpretation Comments Globulin (test code = Globulin) 4.3 2.0-4.0 [facility]2015-01-18 14:22:00 Test Item Value Reference Range Interpretation Comments A/G Ratio (test code = A/G Ratio) 0.8 0.7-1.6 [facility]2015-01-18 14:22:00 Test Item Value Reference Range Interpretation Comments B/C Ratio (test code = B/C Ratio) 20 6-25 [facility]2015-01-18 14:22:00 Test Item Value Reference Range Interpretation Comments AGAP (test code = AGAP) 7.0 10.0-20.0 [facility]2015-01-18 14:22:00 Test Item Value Reference Range Interpretation Comments Potassium Lvl (test code = Potassium 4.0 3.5-5.1 Lvl) [facility]2015-01-18 14:22:00 Test Item Value Reference Range Interpretation Comments Calcium Lvl (test code = Calcium Lvl) 8.8 8.5-10.5 [facility]2015-01-18 14:22:00 Test Item Value Reference Range Interpretation Comments Chloride Lvl (test code = Chloride Lvl) 105 95-109 [facility]2015-01-18 14:22:00 Test Item Value Reference Range Interpretation Comments Sodium Lvl (test code = Sodium Lvl) 139 135-145 [facility]2015-01-18 14:22:00 Test Item Value Reference Range Interpretation Comments eGFR (test code = eGFR) 117 [facility]2015-01-18 14:22:00 Test Item Value Reference Range Interpretation Comments AST (test code = AST) 10 See_Comment [Auto mated message] The system which ge nerated this result transmit yanely reference range : <=37. The reference range was not used to interpr et this result as brielle l/abnormal. [facility]2015-01-18 14:22:00 Test Item Value Reference Range Interpretation Comments Creatinine Lvl (test code = Creatinine 0.7 0.5-1.4 Lvl) [facility]2015-01-18 14:22:00 Test Item Value Reference Range Interpretation Comments BUN (test code = BUN) 14 7- [facility]2015-01-18 14:22:00 Test Item Value Reference Range Interpretation Comments CO2 (test code = CO2) 31 24-32 [facility]2015-01-18 14:22:00 Test Item Value Reference Range Interpretation Comments Total Protein (test code = Total 7.8 6.4-8.4 Protein) [facility]2015-01-18 14:22:00 Test Item Value Reference Range Interpretation Comments ALT (test code = ALT) 22 See_Comment [Auto mated message] The system which ge nerated this result transmit yanely reference range : <=65. The reference range was not used to interpr et this result as brielle l/abnormal. [facility]2015-01-18 14:22:00 Test Item Value Reference Range Interpretation Comments Albumin Lvl (test code = Albumin Lvl) 3.5 3.5-5.0 [facility]2015-01-18 14:22:00 Test Item Value Reference Range Interpretation Comments Alk Phos (test code = Alk Phos) 117 39-136 [facility]2015-01-18 14:22:00 Test Item Value Reference Range Interpretation Comments Bili Total (test code = Bili Total) 0.2 0.2-1.3 [facility]2015-01-18 14:22:00 Test Item Value Reference Range Interpretation Comments Glucose Lvl (test code = Glucose Lvl) 90 70-99 [facility] HospitalGmogqwcOGUYZWNSEO0126-88-88 14:22:00 Test Item Value Reference Range Interpretation Comments Plt Morph (test code = Normal (04/05/14 8:22 Plt Morph) AM) [facility] HospitalDajxhlqCJYWVZVBRL4655-17-47 14:22:00 Test Item Value Reference Range Interpretation Comments RBC Morph (test code = Normal (04/05/14 8:22 RBC Morph) AM) [facility] HospitalCcstnubDPNIXMAULE8905-73-98 14:22:00 Test Item Value Reference Range Interpretation Comments Segs-Bands # (test code = Segs-Bands #) 4.9 1.5-8.1 [facility] HospitalTlbejcaNQFWEYIMZU9876-57-79 14:22:00 Test Item Value Reference Range Interpretation Comments Monocytes # (test code 0.7 See_Comment [Aut omated message] The = Monocytes #) system which generated this result tra nsmitted reference range : <=0.8. The reference r matthieu was not used to int erpret this result as normal/abnormal . [facility] HospitalCabhvbiALFRDJZLXX0749-66-82 14:22:00 Test Item Value Reference Range Interpretation Comments Eosinophils # (test code 0.2 See_Comment [A utomated message] The = Eosinophils #) system whic h generated this result tra nsmitted reference range : <=0.5. The reference r matthieu was not used to int erpret this result as normal/abnormal . [facility] HospitalEvhoawpHGIPUJQVBL2948-20-33 14:22:00 Test Item Value Reference Range Interpretation Comments Lymphocytes # (test code = Lymphocytes 2.3 1.0-5.5 #) [facility] HospitalBbozxmvWGTYCMDSBP6510-01-48 14:22:00 Test Item Value Reference Range Interpretation Comments Monocytes (test code = Monocytes) 9.1 2.0-12.0 [facility] HospitalMiynbveOXVEFNYFTE0051-84-41 14:22:00 Test Item Value Reference Range Interpretation Comments Lymphocytes (test code = Lymphocytes) 27.9 20.0-40.0 [facility] HospitalUjrkszpBSFSHSQWOO6589-33-68 14:22:00 Test Item Value Reference Range Interpretation Comments Basophils (test code = 0.9 See_Comment [Aut omated message] The Basophils) system which ge nerated this result tra nsmitted reference range : <=1.0. The reference r matthieu was not used to int erpret this result as normal/abnormal . [facility] HospitalUhxexpiGPVZDCOEBG9582-82-61 14:22:00 Test Item Value Reference Range Interpretation Comments Eosinophils (test code = 2.0 See_Comment [A utomated message] The Eosinophils) system which ge nerated this result tra nsmitted reference range : <=4.0. The reference r matthieu was not used to int erpret this result as normal/abnormal . [facility] HospitalNszhjboDHCXDIKNXG6358-05-55 14:22:00 Test Item Value Reference Range Interpretation Comments Segs (test code = Segs) 60.1 45.0-75.0 [facility] HospitalJpxlgycGJNSAFGPKZ0152-97-91 14:22:00 Test Item Value Reference Range Interpretation Comments Microcyte (test code = 3+ *NA*(04/05/14 8:22 Microcyte) AM) [facility] HospitalDhuottaUTPYDXQDJN4544-72-85 14:22:00 Test Item Value Reference Range Interpretation Comments Large Plt (test code = Large Plt) Slight [facility] HospitalLkfjzswQXNHYNWSPS2958-86-43 14:22:00 Test Item Value Reference Range Interpretation Comments Basophils # (test code 0.1 See_Comment [Aut omated message] The = Basophils #) system which generated this result tra nsmitted reference range : <=0.2. The reference r matthieu was not used to int erpret this result as normal/abnormal . [facility] HospitalEkjifrcNBGJLSWMPC4364-95-71 14:22:00 Test Item Value Reference Range Interpretation Comments INR (test code = INR) 0.94 0.85-1.17 [facility] HospitalKkkxknnKUVBMGPTUG4306-14-52 14:22:00 Test Item Value Reference Range Interpretation Comments PT (test code = PT) 12.5 s 12.0-14.7 [facility] HospitalFbhaljlFMKIBFIQWO2912-83-31 14:22:00 Test Item Value Reference Range Interpretation Comments PTT (test code = PTT) 33.1 s 22.9-35.8 [facility] HospitalIiwpwcrWQJSNRRTTZ0517-36-59 14:22:00 Test Item Value Reference Range Interpretation Comments MPV (test code = MPV) 8.1 7.4-10.4 [facility] HospitalPobksgcPCIPTTMESY3384-55-30 14:22:00 Test Item Value Reference Range Interpretation Comments Platelet (test code = Platelet) 381 133-450 [facility] HospitalCsrssueTVUNBFCZIJ5918-62-99 14:22:00 Test Item Value Reference Range Interpretation Comments MCHC (test code = MCHC) 31.3 32.0-36.0 [facility] HospitalVqpptbwTOIZPGWWFW3246-07-49 14:22:00 Test Item Value Reference Range Interpretation Comments RBC (test code = RBC) 5.58 4.70-6.10 [facility] HospitalEvzferuGWDUNPPYAD7321-03-32 14:22:00 Test Item Value Reference Range Interpretation Comments Hgb (test code = Hgb) 12.0 14.0-18.0 [facility] HospitalLwultzkTXHEFWTEES2219-16-48 14:22:00 Test Item Value Reference Range Interpretation Comments RDW (test code = RDW) 18.2 11.5-14.5 [facility] HospitalOqsclrmGCRPWNBILC8858-84-22 14:22:00 Test Item Value Reference Range Interpretation Comments Hct (test code = Hct) 38.3 42.0-54.0 [facility] HospitalOkddaxqGSXJQQHUGW9544-86-79 14:22:00 Test Item Value Reference Range Interpretation Comments MCH (test code = MCH) 21.5 pg 27.0-31.0 [facility] HospitalEcusqaqFDOVBQEMLY9469-70-03 14:22:00 Test Item Value Reference Range Interpretation Comments MCV (test code = MCV) 68.7 80.0-94.0 [facility] HospitalEmlldrmTRVQMGSFKT9656-38-70 14:22:00 Test Item Value Reference Range Interpretation Comments WBC (test code = WBC) 8.2 3.7-10.4 [facility]2014-11-10 07:30:00 Test Item Value Reference Range Interpretation Comments eGFR (test code = eGFR) 135 [facility]2014-11-10 07:30:00 Test Item Value Reference Range Interpretation Comments Glucose Lvl (test code = Glucose Lvl) 102 70-99 [facility]2014-11-10 07:30:00 Test Item Value Reference Range Interpretation Comments Potassium Lvl (test code = Potassium 3.9 3.5-5.1 Lvl) [facility]2014-11-10 07:30:00 Test Item Value Reference Range Interpretation Comments Chloride Lvl (test code = Chloride Lvl) 108 95-109 [facility]2014-11-10 07:30:00 Test Item Value Reference Range Interpretation Comments CO2 (test code = CO2) 21 24-32 [facility]2014-11-10 07:30:00 Test Item Value Reference Range Interpretation Comments BUN (test code = BUN) 6 7-22 [facility]2014-11-10 07:30:00 Test Item Value Reference Range Interpretation Comments Creatinine Lvl (test code = Creatinine 0.5 0.5-1.4 Lvl) [facility]2014-11-10 07:30:00 Test Item Value Reference Range Interpretation Comments Sodium Lvl (test code = Sodium Lvl) 140 135-145 [facility]2014-11-10 07:30:00 Test Item Value Reference Range Interpretation Comments Calcium Lvl (test code = Calcium Lvl) 8.0 8.5-10.5 [facility]2014-11-10 07:30:00 Test Item Value Reference Range Interpretation Comments AGAP (test code = AGAP) 14.9 10.0-20.0 [facility] HospitalAxuoflfFEHQDHIUTZ3159-32-40 07:30:00 Test Item Value Reference Range Interpretation Comments INR (test code = INR) 0.95 0.85-1.17 [facility] HospitalAbscrumMXJZEOAMPF7802-81-97 07:30:00 Test Item Value Reference Range Interpretation Comments PT (test code = PT) 12.7 s 12.0-14.7 [facility] HospitalHpqcoafEUJCXHIVSW4755-49-64 07:30:00 Test Item Value Reference Range Interpretation Comments PTT (test code = PTT) 38.6 s 22.9-35.8 [facility] HospitalTpzahfcSBZRUOIEXC5437-45-21 07:30:00 Test Item Value Reference Range Interpretation Comments Microcyte (test code = 2+ *ABN*(01/26/14 Microcyte) 1:30 AM) [facility] HospitalJmlyeahCZFGRJTIYI2467-73-86 07:30:00 Test Item Value Reference Range Interpretation Comments Eosinophils # (test code 0.2 See_Comment [A utomated message] The = Eosinophils #) system whic h generated this result tra nsmitted reference range : <=0.5. The reference r matthieu was not used to int erpret this result as normal/abnormal . [facility] HospitalWetjqtfFCPSAKYBFK7731-34-74 07:30:00 Test Item Value Reference Range Interpretation Comments Lymphocytes # (test code = Lymphocytes 1.8 1.0-5.5 #) [facility] HospitalRwkxsqaOPWDANHIVU6527-72-08 07:30:00 Test Item Value Reference Range Interpretation Comments Monocytes # (test code 0.6 See_Comment [Aut omated message] The = Monocytes #) system which generated this result tra nsmitted reference range : <=0.8. The reference r matthieu was not used to int erpret this result as normal/abnormal . [facility] HospitalYfzpmriJZXXFWWRGH3768-06-77 07:30:00 Test Item Value Reference Range Interpretation Comments Segs-Bands # (test code = Segs-Bands #) 6.2 1.5-8.1 [facility] HospitalBjkbqhjQWTSKYKPWB9715-37-66 07:30:00 Test Item Value Reference Range Interpretation Comments Basophils (test code = 0.6 See_Comment [Aut omated message] The Basophils) system which ge nerated this result tra nsmitted reference range : <=1.0. The reference r matthieu was not used to int erpret this result as normal/abnormal . [facility] HospitalIbznlxyYCZQLQQUXY7767-07-06 07:30:00 Test Item Value Reference Range Interpretation Comments Eosinophils (test code = 1.9 See_Comment [A utomated message] The Eosinophils) system which ge nerated this result tra nsmitted reference range : <=4.0. The reference r matthieu was not used to int erpret this result as normal/abnormal . [facility] HospitalEpnlcrxCEFDCGBMDG9989-60-41 07:30:00 Test Item Value Reference Range Interpretation Comments Segs (test code = Segs) 69.8 45.0-75.0 [facility] HospitalJeizhnrVKRXDPJRNY3913-57-37 07:30:00 Test Item Value Reference Range Interpretation Comments Lymphocytes (test code = Lymphocytes) 20.6 20.0-40.0 [facility] HospitalHlbvpydJMXXWLLRRK8993-93-56 07:30:00 Test Item Value Reference Range Interpretation Comments Monocytes (test code = Monocytes) 7.1 2.0-12.0 [facility] HospitalEyvlpcxQKHDFNCNCO3103-30-09 07:30:00 Test Item Value Reference Range Interpretation Comments MCH (test code = MCH) 21.2 pg 27.0-31.0 [facility] HospitalUyapzyyLSMMNBWLRC8817-17-63 07:30:00 Test Item Value Reference Range Interpretation Comments MCHC (test code = MCHC) 30.4 32.0-36.0 [facility] HospitalVownkozZJQOSMZXTW4960-85-68 07:30:00 Test Item Value Reference Range Interpretation Comments RDW (test code = RDW) 17.7 11.5-14.5 [facility] HospitalPgtdwntLGDMNGSGXF7067-46-05 07:30:00 Test Item Value Reference Range Interpretation Comments Platelet (test code = Platelet) 376 133-450 [facility]FsieafpSTGZBUKFJD1778-66-52 07:30:00 Test Item Value Reference Range Interpretation Comments MPV (test code = MPV) 8.5 7.4-10.4 [facility] HospitalAdmmlbfGXUKSDJNWK3615-91-40 07:30:00 Test Item Value Reference Range Interpretation Comments WBC (test code = WBC) 8.9 3.7-10.4 [facility] HospitalDjxcosbTAENKEFGTR7494-31-83 07:30:00 Test Item Value Reference Range Interpretation Comments RBC (test code = RBC) 4.30 4.70-6.10 [facility] HospitalZycofedKGHMWPZPHR8263-91-20 07:30:00 Test Item Value Reference Range Interpretation Comments Hgb (test code = Hgb) 9.1 14.0-18.0 [facility] HospitalZkgvsusOHHOOPQLAR2416-93-98 07:30:00 Test Item Value Reference Range Interpretation Comments Hct (test code = Hct) 30.0 42.0-54.0 [facility] HospitalDlyzavlMFFSSQMYIL7392-94-95 07:30:00 Test Item Value Reference Range Interpretation Comments MCV (test code = MCV) 69.7 80.0-94.0 [facility] [employer] BWBRJKJ2322-85-05 06:10:00 Test Item Value Reference Range Interpretation Comments ABO/Rh (test code = ABO/Rh) O POS [facility] [employer] JSJRRTL4025-12-08 06:10:00 Test Item Value Reference Range Interpretation Comments Antibody Scrn (test Negative (01/26/14 code = Antibody Scrn) 12:10 AM) [facility]ObviousideaDVXJQF0971-23-42 19:38:00 Test Item Value Reference Range Interpretation Comments Protein CSF (test code = Protein CSF) 41 15-45 [facility] CenterObviousideaITLTLN7489-46-74 19:38:00 Test Item Value Reference Range Interpretation Comments Glucose CSF (test code = Glucose CSF) 65 45-80 [facility] CenterObviousideaPNZOSE1790-56-10 19:38:00 Test Item Value Reference Range Interpretation Comments Tube Num CSF (test code = Tube Num CSF) 3 1 [facility] HospitalAmerican TeleCareITZTNM3255-41-65 19:38:00 Test Item Value Reference Range Interpretation Comments RBC CSF (test code = 585 See_Comment [Autom ated message] The RBC CSF) system which ge nerated this result transmit yanely reference range : <=03. The reference range was not used to interpr et this result as brielle l/abnormal. [facility] BDACHN1543-74-91 19:38:00 Test Item Value Reference Range Interpretation Comments Supernat CSF (test Colorless (01/23/14 1:38 code = Supernat CSF) PM) [facility] YRONQS7239-75-17 19:38:00 Test Item Value Reference Range Interpretation Comments WBC CSF (test code = 4 See_Comment [Autom ated message] The WBC CSF) system which ge nerated this result transmit yanely reference range : <=53. The reference range was not used to interpr et this result as brielle l/abnormal. [facility] IRDYOE1091-53-31 19:38:00 Test Item Value Reference Range Interpretation Comments Color CSF (test code Colorless (01/23/14 1:38 = Color CSF) PM) [facility] ZHPWDV4752-64-43 19:38:00 Test Item Value Reference Range Interpretation Comments Clarity CSF (test code = Clear (01/23/14 1:38 Clarity CSF) PM) [facility] CenterMobile Game DayCHEM UFNMY3446-39-14 09:29:00 Test Item Value Reference Range Interpretation Comments Phosphorus (test code = Phosphorus) 3.7 2.5-4.5 [facility] [employer]psumCHE[employer] UVCEM8306-84-48 09:29:00 Test Item Value Reference Range Interpretation Comments Magnesium Lvl (test code = Magnesium 1.7 1.8-2.4 Lvl) [facility] CenterRxnyjakLQKDVCNKCPGX5699-57-51 09:29:00 Test Item Value Reference Range Interpretation Comments AGAP (test code = AGAP) 12.2 10.0-20.0 [facility] CenterEqxdjbnIPRCIRSOJYQH6605-70-88 09:29:00 Test Item Value Reference Range Interpretation Comments eGFR (test code = eGFR) 117 [facility] CenterWohuggjEPEMIOKUQHPS9402-43-52 09:29:00 Test Item Value Reference Range Interpretation Comments Potassium Lvl (test code = Potassium 4.2 3.5-5.1 Lvl) [facility] CenterMlcsdxuFBXIZYVRDZVR2361-18-75 09:29:00 Test Item Value Reference Range Interpretation Comments Calcium Lvl (test code = Calcium Lvl) 8.7 8.5-10.5 [facility] JwdjfajOJIOKHYFYKKA5933-11-68 09:29:00 Test Item Value Reference Range Interpretation Comments CO2 (test code = CO2) 27 24-32 [facility] HospitalIgvxogbOIGQSKRPHLMM4847-89-03 09:29:00 Test Item Value Reference Range Interpretation Comments Chloride Lvl (test code = Chloride Lvl) 107 95-109 [facility] HospitalZalqfvbMCYUODSKAZGB3697-63-83 09:29:00 Test Item Value Reference Range Interpretation Comments Creatinine Lvl (test code = Creatinine 0.7 0.5-1.4 Lvl) [facility] HospitalMdtyiqtLNHNMJBJZJLP0408-47-75 09:29:00 Test Item Value Reference Range Interpretation Comments Sodium Lvl (test code = Sodium Lvl) 142 135-145 [facility] HospitalOojasxdNOCHEIIIPXLJ6339-87-21 09:29:00 Test Item Value Reference Range Interpretation Comments BUN (test code = BUN) 7 7-22 [facility] HospitalZzvzcvaPVUEASZJBIYW7801-34-13 09:29:00 Test Item Value Reference Range Interpretation Comments Glucose Lvl (test code = Glucose Lvl) 108 70-99 [facility] HospitalHkwxxfhIIWPNGRAHL3118-84-68 09:29:00 Test Item Value Reference Range Interpretation Comments Eosinophils (test code = 1.0 See_Comment [A utomated message] The Eosinophils) system which ge nerated this result tra nsmitted reference range : <=4.0. The reference r matthieu was not used to int erpret this result as normal/abnormal . [facility] HospitalUjnynygPTVNNUXWSW0515-88-75 09:29:00 Test Item Value Reference Range Interpretation Comments Monocytes (test code = Monocytes) 10.4 2.0-12.0 [facility] HospitalXjxiehjPZWBYXXSCU4000-28-02 09:29:00 Test Item Value Reference Range Interpretation Comments Lymphocytes (test code = Lymphocytes) 17.4 20.0-40.0 [facility] HospitalDymsccgUWOKMCQEER6549-22-61 09:29:00 Test Item Value Reference Range Interpretation Comments Segs (test code = Segs) 70.7 45.0-75.0 [facility] HospitalSzmgeypGZRLFFZVGS4645-60-95 09:29:00 Test Item Value Reference Range Interpretation Comments Eosinophils # (test code 0.1 See_Comment [A utomated message] The = Eosinophils #) system whic h generated this result tra nsmitted reference range : <=0.5. The reference r matthieu was not used to int erpret this result as normal/abnormal . [facility] HospitalRjxqvyvADUTRPAIRX4954-39-68 09:29:00 Test Item Value Reference Range Interpretation Comments Monocytes # (test code 1.2 See_Comment [Aut omated message] The = Monocytes #) system which generated this result tra nsmitted reference range : <=0.8. The reference r matthieu was not used to int erpret this result as normal/abnormal . [facility] HospitalXcwemlzTWLCFPMKOH1499-65-51 09:29:00 Test Item Value Reference Range Interpretation Comments Lymphocytes # (test code = Lymphocytes 2.1 1.0-5.5 #) [facility] HospitalIaishchCNUKZJVMXN8082-24-32 09:29:00 Test Item Value Reference Range Interpretation Comments Segs-Bands # (test code = Segs-Bands #) 8.3 1.5-8.1 [facility] HospitalZmnvqzbLZCANZCBSO3914-98-27 09:29:00 Test Item Value Reference Range Interpretation Comments Basophils (test code = 0.5 See_Comment [Aut omated message] The Basophils) system which ge nerated this result tra nsmitted reference range : <=1.0. The reference r matthieu was not used to int erpret this result as normal/abnormal . [facility] HospitalBsbzmkzMKMGMZOHVW4750-75-69 09:29:00 Test Item Value Reference Range Interpretation Comments Microcyte (test code = 2+ *ABN*(01/23/14 Microcyte) 3:29 AM) [facility] HospitalUfrzcbpBIRSXFKRLF1004-27-74 09:29:00 Test Item Value Reference Range Interpretation Comments Basophils # (test code 0.1 See_Comment [Aut omated message] The = Basophils #) system which generated this result tra nsmitted reference range : <=0.2. The reference r matthieu was not used to int erpret this result as normal/abnormal . [facility] HospitalLnhtgaqDEKYUIPMFI4205-28-45 09:29:00 Test Item Value Reference Range Interpretation Comments RDW (test code = RDW) 18.0 11.5-14.5 [facility] HospitalSzsyeddQRDARZGEAS7456-15-83 09:29:00 Test Item Value Reference Range Interpretation Comments MCHC (test code = MCHC) 31.2 32.0-36.0 [facility] HospitalKufrqvoLBFDBOHSKP4579-87-92 09:29:00 Test Item Value Reference Range Interpretation Comments MCH (test code = MCH) 21.9 pg 27.0-31.0 [facility] HospitalHccglybODBJNMNNDS1808-90-37 09:29:00 Test Item Value Reference Range Interpretation Comments MCV (test code = MCV) 70.3 80.0-94.0 [facility] HospitalPugzscsFKSGYMHYQC3308-06-77 09:29:00 Test Item Value Reference Range Interpretation Comments Hct (test code = Hct) 34.3 42.0-54.0 [facility] HospitalKvfgqgiHHTEBXIRII4545-08-95 09:29:00 Test Item Value Reference Range Interpretation Comments Platelet (test code = Platelet) 355 133-450 [facility] HospitalHexjcviCUIEJOEHJQ2646-51-80 09:29:00 Test Item Value Reference Range Interpretation Comments MPV (test code = MPV) 8.6 7.4-10.4 [facility] HospitalDmzgunmCOSCXNLOVN1138-74-35 09:29:00 Test Item Value Reference Range Interpretation Comments Hgb (test code = Hgb) 10.7 14.0-18.0 [facility] HospitalQdflyrxVCTOYQMERT9273-49-10 09:29:00 Test Item Value Reference Range Interpretation Comments RBC (test code = RBC) 4.88 4.70-6.10 [facility] HospitalVwhnesxHNFJPQFEGN5789-37-28 09:29:00 Test Item Value Reference Range Interpretation Comments WBC (test code = WBC) 11.8 3.7-10.4 [facility]2014-11-07 09:29:00 Test Item Value Reference Range Interpretation Comments Ca Ion WB (test code = Ca Ion WB) 1.12 1.05-1.25 [facility]2014-11-07 09:29:00 Test Item Value Reference Range Interpretation Comments Ca Norm WB (test code = Ca Norm WB) 1.11 1.05-1.25 [facility]2014-11-06 06:37:00 Test Item Value Reference Range Interpretation Comments eGFR (test code = eGFR) 111 [facility]2014-11-06 06:37:00 Test Item Value Reference Range Interpretation Comments Sodium Lvl (test code = Sodium Lvl) 141 135-145 [facility]2014-11-06 06:37:00 Test Item Value Reference Range Interpretation Comments Creatinine Lvl (test code = Creatinine 0.8 0.5-1.4 Lvl) [facility]2014-11-06 06:37:00 Test Item Value Reference Range Interpretation Comments CO2 (test code = CO2) 28 24-32 [facility]2014-11-06 06:37:00 Test Item Value Reference Range Interpretation Comments Chloride Lvl (test code = Chloride Lvl) 105 95-109 [facility]2014-11-06 06:37:00 Test Item Value Reference Range Interpretation Comments Potassium Lvl (test code = Potassium 4.3 3.5-5.1 Lvl) [facility]2014-11-06 06:37:00 Test Item Value Reference Range Interpretation Comments BUN (test code = BUN) 9 7-22 [facility]2014-11-06 06:37:00 Test Item Value Reference Range Interpretation Comments Glucose Lvl (test code = Glucose Lvl) 119 70-99 [facility]2014-11-06 06:37:00 Test Item Value Reference Range Interpretation Comments Calcium Lvl (test code = Calcium Lvl) 8.7 8.5-10.5 [facility]2014-11-06 06:37:00 Test Item Value Reference Range Interpretation Comments AGAP (test code = AGAP) 12.3 10.0-20.0 [facility]2014-11-06 06:37:00 Test Item Value Reference Range Interpretation Comments Magnesium Lvl (test code = Magnesium 1.9 1.8-2.4 Lvl) [facility]2014-11-06 06:37:00 Test Item Value Reference Range Interpretation Comments Phosphorus (test code = Phosphorus) 4.3 2.5-4.5 [facility] HospitalIsdvzbbLXLLLMCBBQ3357-23-72 06:37:00 Test Item Value Reference Range Interpretation Comments MPV (test code = MPV) 8.5 7.4-10.4 [facility] HospitalRdqjymjONKLNDGNFP4621-98-31 06:37:00 Test Item Value Reference Range Interpretation Comments Hct (test code = Hct) 36.0 42.0-54.0 [facility] HospitalVubudcuQAJRKNXVND0809-27-18 06:37:00 Test Item Value Reference Range Interpretation Comments Platelet (test code = Platelet) 394 133-450 [facility] HospitalBgziwjjOCVJQDXPFT3802-01-64 06:37:00 Test Item Value Reference Range Interpretation Comments RDW (test code = RDW) 18.0 11.5-14.5 [facility] HospitalSozawryXWIQEJQXNG7571-37-42 06:37:00 Test Item Value Reference Range Interpretation Comments MCV (test code = MCV) 70.4 80.0-94.0 [facility] HospitalPyxcgzlQAUEYYSYFG9202-76-84 06:37:00 Test Item Value Reference Range Interpretation Comments MCHC (test code = MCHC) 31.7 32.0-36.0 [facility] HospitalTmselvvXSNZARIJFC6954-78-38 06:37:00 Test Item Value Reference Range Interpretation Comments MCH (test code = MCH) 22.3 pg 27.0-31.0 [facility] HospitalQavxwooBYQOXLEJJC2351-75-17 06:37:00 Test Item Value Reference Range Interpretation Comments RBC (test code = RBC) 5.12 4.70-6.10 [facility] HospitalMuafihoUIHTLVGJRO2479-14-25 06:37:00 Test Item Value Reference Range Interpretation Comments WBC (test code = WBC) 13.9 3.7-10.4 [facility] HospitalJotwkieXRSXVOXIUT3696-50-46 06:37:00 Test Item Value Reference Range Interpretation Comments Hgb (test code = Hgb) 11.4 14.0-18.0 [facility] HospitalEcbddzjDQIIVYCUWF7032-97-73 06:37:00 Test Item Value Reference Range Interpretation Comments PTT (test code = PTT) 31.9 s 22.9-35.8 [facility] HospitalQpxwdynEFATVIEENZ8918-81-09 06:37:00 Test Item Value Reference Range Interpretation Comments PT (test code = PT) 13.4 s 12.0-14.7 [facility] HospitalWwztnuaRLESSUFCVF6284-06-11 06:37:00 Test Item Value Reference Range Interpretation Comments INR (test code = INR) 1.02 0.85-1.17 [facility] HospitalZtsttzxQXRWTQSJIE2204-50-87 06:37:00 Test Item Value Reference Range Interpretation Comments Eosinophils (test code = 0.1 See_Comment [A utomated message] The Eosinophils) system which ge nerated this result tra nsmitted reference range : <=4.0. The reference r matthieu was not used to int erpret this result as normal/abnormal . [facility] HospitalIksaanwCVLEKXAVJA7410-48-51 06:37:00 Test Item Value Reference Range Interpretation Comments Lymphocytes (test code = Lymphocytes) 13.0 20.0-40.0 [facility] HospitalGbbrlceIBHHBHBMJA1424-12-07 06:37:00 Test Item Value Reference Range Interpretation Comments Basophils (test code = 0.3 See_Comment [Aut omated message] The Basophils) system which ge nerated this result tra nsmitted reference range : <=1.0. The reference r matthieu was not used to int erpret this result as normal/abnormal . [facility] HospitalVxwyhfiTHENJECLAG8380-88-43 06:37:00 Test Item Value Reference Range Interpretation Comments Monocytes (test code = Monocytes) 10.2 2.0-12.0 [facility] HospitalGhzkhqjWOZXREEWGV7805-40-71 06:37:00 Test Item Value Reference Range Interpretation Comments Segs-Bands # (test code = Segs-Bands #) 10.7 1.5-8.1 [facility] HospitalNqufrsgGDVCAOQCMB5263-66-91 06:37:00 Test Item Value Reference Range Interpretation Comments Segs (test code = Segs) 76.4 45.0-75.0 [facility] HospitalLaoqkjwYZSQKSTFSR2490-56-77 06:37:00 Test Item Value Reference Range Interpretation Comments Lymphocytes # (test code = Lymphocytes 1.8 1.0-5.5 #) [facility] HospitalSpafdkpJXNJHDMYMQ2752-34-94 06:37:00 Test Item Value Reference Range Interpretation Comments Microcyte (test code = 2+ *ABN*(01/22/14 Microcyte) 12:37 AM) [facility] HospitalLnuylbgDONZTVFNGF3304-23-94 06:37:00 Test Item Value Reference Range Interpretation Comments Monocytes # (test code 1.4 See_Comment [Aut omated message] The = Monocytes #) system which generated this result tra nsmitted reference range : <=0.8. The reference r matthieu was not used to int erpret this result as normal/abnormal . [facility]2014-11-06 06:37:00 Test Item Value Reference Range Interpretation Comments Ca Ion WB (test code = Ca Ion WB) 1.09 1.05-1.25 [facility]2014-11-06 06:37:00 Test Item Value Reference Range Interpretation Comments Ca Norm WB (test code = Ca Norm WB) 1.10 1.05-1.25 [facility] [facility] 18:35:00 Test Item Value Reference Range Interpretation Comments Anisocyte (test code = 1+ *ABN*(01/21/14 Anisocyte) 12:35 PM) [id number] 18:35:00 Test Item Value Reference Range Interpretation Comments Hypochrom (test code = 1+ (01/21/14 12:35 Hypochrom) PM) [facility]JhfrwosZZXULLGYJK1847-43-59 18:35:00 Test Item Value Reference Range Interpretation Comments Large Plt (test code Moderate *ABN*(01/21/14 = Large Plt) 12:35 PM) [facility] HospitalGnvlxagQRJVSOZIHI8660-06-25 13:52:00 Test Item Value Reference Range Interpretation Comments Eosinophils # (test code 0.3 See_Comment [A utomated message] The = Eosinophils #) system whic h generated this result tra nsmitted reference range : <=0.5. The reference r matthieu was not used to int erpret this result as normal/abnormal . [facility] HospitalBACTERIAL - [id number] 07:45:00 Test Item Value Reference Range Interpretation Comments MRSA by PCR (test Negative (01/21/14 1:45 code = MRSA by PCR) AM) [facility] [id number] 07:45:00 Test Item Value Reference Range Interpretation Comments Albumin Lvl (test code = Albumin Lvl) 3.7 3.5-5.0 [facility] [id number] 07:45:00 Test Item Value Reference Range Interpretation Comments Total Protein (test code = Total 7.3 6.4-8.4 Protein) [facility] [id number] 07:45:00 Test Item Value Reference Range Interpretation Comments Bili Total (test code = Bili Total) 0.3 0.2-1.3 [facility] [id number] 07:45:00 Test Item Value Reference Range Interpretation Comments ALT (test code = ALT) 22 See_Comment [Auto mated message] The system which ge nerated this result transmit yanely reference range : <=65. The reference range was not used to interpr et this result as brielle l/abnormal. [facility] [id number] 07:45:00 Test Item Value Reference Range Interpretation Comments AST (test code = AST) 11 See_Comment [Auto mated message] The system which ge nerated this result transmit yanely reference range : <=37. The reference range was not used to interpr et this result as brielle l/abnormal. [facility]2014-11-05 07:45:00 Test Item Value Reference Range Interpretation Comments Alk Phos (test code = Alk Phos) 99 39-136 [facility]2014-11-05 07:45:00 Test Item Value Reference Range Interpretation Comments A/G Ratio (test code = A/G Ratio) 1.0 0.7-1.6 [facility]2014-11-05 07:45:00 Test Item Value Reference Range Interpretation Comments Globulin (test code = Globulin) 3.6 2.0-4.0 [facility]2014-11-05 07:45:00 Test Item Value Reference Range Interpretation Comments B/C Ratio (test code = B/C Ratio) 18 6-25 [facility]2014-11-05 07:45:00 Test Item Value Reference Range Interpretation Comments Lactic Acid Lvl (test code = Lactic 1.2 0.5-2.2 Acid Lvl) [facility] HospitalFpafuvyUSLWKLBWBQ9183-73-52 07:45:00 Test Item Value Reference Range Interpretation Comments PTT (test code = PTT) 35.3 s 22.9-35.8 [facility] HospitalCxrxcwoKMINMWLDCE2378-19-88 07:45:00 Test Item Value Reference Range Interpretation Comments PT (test code = PT) 13.1 s 12.0-14.7 [facility] HospitalOzrutgkJZYPCOKWWR8459-48-70 07:45:00 Test Item Value Reference Range Interpretation Comments INR (test code = INR) 0.99 0.85-1.17 [facility] AND [id number] 07:45:00 Test Item Value Reference Range Interpretation Comments UA Urobilinogen (test code = UA <=1.0 mg/dL 0.1-1.0 Urobilinogen) [facility] AND [id number] 07:45:00 Test Item Value Reference Range Interpretation Comments UA Sq Epi (test code = UA Sq Epi) None Seen [facility] AND [id number] 07:45:00 Test Item Value Reference Range Interpretation Comments UA Mucus (test code = UA Mucus) Many /LPF [facility] AND [id number] 07:45:00 Test Item Value Reference Range Interpretation Comments UA Nitrite (test code Negative (01/21/14 1:45 = UA Nitrite) AM) [facility] AND [id number] 07:45:00 Test Item Value Reference Range Interpretation Comments UA Blood (test code = Negative (01/21/14 1:45 UA Blood) AM) [facility] AND [id number] 07:45:00 Test Item Value Reference Range Interpretation Comments UA Leuk Est (test Negative (01/21/14 1:45 code = UA Leuk Est) AM) [facility] AND [id number] 07:45:00 Test Item Value Reference Range Interpretation Comments UA WBC (test code = 3 See_Comment [Automa yanely message] The UA WBC) system which ge nerated this result transmit yanely reference range : <=5. The reference range was not used to interpr et this result as brielle l/abnormal. [facility] AND [id number] 07:45:00 Test Item Value Reference Range Interpretation Comments UA Color (test code = Yellow *NA*(01/21/14 UA Color) 1:45 AM) [facility] AND [id number] 07:45:00 Test Item Value Reference Range Interpretation Comments UA Spec Grav (test code = UA Spec Grav) 1.022 [facility] AND [id number] 07:45:00 Test Item Value Reference Range Interpretation Comments UA Turbidity (test code = Clear (01/21/14 1:45 UA Turbidity) AM) [facility] AND [id number] 07:45:00 Test Item Value Reference Range Interpretation Comments UA Protein (test code = UA Protein) 20 mg/dL [facility] AND [id number] 07:45:00 Test Item Value Reference Range Interpretation Comments UA pH (test code = UA pH) 6.0 5.0-8.0 [facility] AND [id number] 07:45:00 Test Item Value Reference Range Interpretation Comments UA Ketones (test code = UA Negative mg/dL Ketones) [facility] AND [id number] 07:45:00 Test Item Value Reference Range Interpretation Comments UA Glucose (test code = UA Negative mg/dL Glucose) [facility] AND [id number] 07:45:00 Test Item Value Reference Range Interpretation Comments UA Bili (test code = Negative *NA*(01/21/14 UA Bili) 1:45 AM) [facility] [id number] 07:40:00 Test Item Value Reference Range Interpretation Comments Antibody Scrn (test Negative (01/21/14 1:40 code = Antibody Scrn) AM) [facility] [id number] 07:40:00 Test Item Value Reference Range Interpretation Comments ABO/Rh (test code = ABO/Rh) O POS [facility] HospitalOzehndxHMAIVBXRPN2112-07-57 17:34:00 Test Item Value Reference Range Interpretation Comments Hgb (test code = Hgb) 9.4 14.0-18.0 [facility] HospitalFnxlpftWXIEBMUAFI7179-45-09 17:34:00 Test Item Value Reference Range Interpretation Comments Hct (test code = Hct) 28.4 42.0-54.0 [facility]CHE[facility] [id number] 05:40:00 Test Item Value Reference Range Interpretation Comments Phosphorus (test code = Phosphorus) 4.5 2.5-4.5 [facility]CHE[facility] [id number] 05:40:00 Test Item Value Reference Range Interpretation Comments Magnesium Lvl (test code = Magnesium 1.8 1.8-2.4 Lvl) [facility] HospitalMgatfrkIDDOPDPVPCCD3343-68-04 05:40:00 Test Item Value Reference Range Interpretation Comments AGAP (test code = AGAP) 12.7 10.0-20.0 [facility] HospitalAhjwcveOXCUTRZICBYZ2306-43-34 05:40:00 Test Item Value Reference Range Interpretation Comments eGFR (test code = eGFR) 125 [facility] HospitalOeumowjOPULCZKKPGBZ0040-38-78 05:40:00 Test Item Value Reference Range Interpretation Comments Creatinine Lvl (test code = Creatinine 0.6 0.5-1.4 Lvl) [facility] HospitalPddxiaxXXHGQDIJWDDV5810-20-76 05:40:00 Test Item Value Reference Range Interpretation Comments Calcium Lvl (test code = Calcium Lvl) 9.0 8.5-10.5 [facility] HospitalSdgkalaUIOAFVILRSHA2538-75-68 05:40:00 Test Item Value Reference Range Interpretation Comments CO2 (test code = CO2) 30 24-32 [facility] HospitalWphvesmUBOMUNERHWJZ1136-73-69 05:40:00 Test Item Value Reference Range Interpretation Comments Chloride Lvl (test code = Chloride Lvl) 99 95-109 [facility] HospitalPueahlcQBIZDNGDRHOW5884-74-87 05:40:00 Test Item Value Reference Range Interpretation Comments BUN (test code = BUN) 18 7-22 [facility] HospitalYmjbfljLVRWASXVTKFM1931-18-78 05:40:00 Test Item Value Reference Range Interpretation Comments Glucose Lvl (test code = Glucose Lvl) 101 70-99 [facility] HospitalAaqhskzAQDQNDHMCUZR9333-16-08 05:40:00 Test Item Value Reference Range Interpretation Comments Potassium Lvl (test code = Potassium 4.7 3.5-5.1 Lvl) [facility] HospitalGydqlucCRXZKNPADEDI5604-00-33 05:40:00 Test Item Value Reference Range Interpretation Comments Sodium Lvl (test code = Sodium Lvl) 137 135-145 [facility] HospitalTygqzfoLLVRKWVEOZ0221-83-61 05:40:00 Test Item Value Reference Range Interpretation Comments WBC (test code = WBC) 9.9 3.7-10.4 [facility] HospitalHrbiflwAGMLEWVAEL0397-61-67 05:40:00 Test Item Value Reference Range Interpretation Comments RBC (test code = RBC) 3.33 4.70-6.10 [facility] HospitalDxvelbuAHPDJZAUFP1950-56-48 05:40:00 Test Item Value Reference Range Interpretation Comments Hgb (test code = Hgb) 9.8 14.0-18.0 [facility] HospitalOesitiuFJNUOQRPTN4239-71-76 05:40:00 Test Item Value Reference Range Interpretation Comments Hct (test code = Hct) 28.5 42.0-54.0 [facility] HospitalHyoorwqOOCQRLHQMQ6867-61-46 05:40:00 Test Item Value Reference Range Interpretation Comments MCH (test code = MCH) 29.4 pg 27.0-31.0 [facility] HospitalWvwqhzdUQPXASRBDC6158-58-85 05:40:00 Test Item Value Reference Range Interpretation Comments MCV (test code = MCV) 85.6 80.0-94.0 [facility] HospitalRbwfafjLTKANXMFZP3607-74-43 05:40:00 Test Item Value Reference Range Interpretation Comments MCHC (test code = MCHC) 34.4 32.0-36.0 [facility] HospitalQmwptazFCGVZLFRVJ4271-12-65 05:40:00 Test Item Value Reference Range Interpretation Comments RDW (test code = RDW) 15.1 11.5-14.5 [facility] HospitalBtribbtDNQCTFOXGX3225-22-17 05:40:00 Test Item Value Reference Range Interpretation Comments Platelet (test code = Platelet) 469 188-450 [facility] HospitalSgtbckmPZNOYDMPSS3468-67-63 05:40:00 Test Item Value Reference Range Interpretation Comments MPV (test code = MPV) 8.4 7.4-10.4 [facility] HospitalSqdumzkPLMYXCHKWV2980-72-01 05:40:00 Test Item Value Reference Range Interpretation Comments Eosinophils # (test code 0.2 See_Comment [A utomated message] The = Eosinophils #) system whic h generated this result tra nsmitted reference range : <=0.5. The reference r matthieu was not used to int erpret this result as normal/abnormal . [facility] HospitalKtszzzqSTANMWQGAN1010-56-39 05:40:00 Test Item Value Reference Range Interpretation Comments Segs-Bands # (test code = Segs-Bands #) 6.8 1.5-8.1 [facility] HospitalFndumerPZEOGXADPB2407-99-46 05:40:00 Test Item Value Reference Range Interpretation Comments Lymphocytes # (test code = Lymphocytes 1.9 1.0-5.5 #) [facility] HospitalXrmgrwwIPPVIXNOVN0079-53-32 05:40:00 Test Item Value Reference Range Interpretation Comments Monocytes # (test code 1.0 See_Comment [Aut omated message] The = Monocytes #) system which generated this result tra nsmitted reference range : <=0.8. The reference r matthieu was not used to int erpret this result as normal/abnormal . [facility] HospitalWmjpvelCHRRRBACKS9274-64-31 05:40:00 Test Item Value Reference Range Interpretation Comments Lymphocytes (test code = Lymphocytes) 19.0 20.0-40.0 [facility] HospitalMbxgputKQJBYQIUSI6934-03-47 05:40:00 Test Item Value Reference Range Interpretation Comments Basophils (test code = 0.5 See_Comment [Aut omated message] The Basophils) system which ge nerated this result tra nsmitted reference range : <=1.0. The reference r matthieu was not used to int erpret this result as normal/abnormal . [facility] HospitalWwpdbhsULOWPHOFXY5634-13-08 05:40:00 Test Item Value Reference Range Interpretation Comments Eosinophils (test code = 2.0 See_Comment [A utomated message] The Eosinophils) system which ge nerated this result tra nsmitted reference range : <=4.0. The reference r matthieu was not used to int erpret this result as normal/abnormal . [facility] HospitalJrmfkwbVHPOTFXYDP0145-92-33 05:40:00 Test Item Value Reference Range Interpretation Comments Monocytes (test code = Monocytes) 9.9 2.0-12.0 [facility] HospitalCntselxXWVSXWVPDK9001-29-03 05:40:00 Test Item Value Reference Range Interpretation Comments Segs (test code = Segs) 68.6 45.0-75.0 [facility] QZJGPNR7436-37-11 05:40:00 Test Item Value Reference Range Interpretation Comments Ca Ion WB (test code = Ca Ion WB) 1.13 1.05-1.25 [facility]2014-08-18 05:40:00 Test Item Value Reference Range Interpretation Comments Ca Norm WB (test code = Ca Norm WB) 1.16 1.05-1.25 [facility] AND [id number] 16:30:02 Test Item Value Reference Range Interpretation Comments UA Bacteria (test code = UA Occasional /HPF Bacteria) [facility] AND [id number] 16:30:02 Test Item Value Reference Range Interpretation Comments UA Mucus (test code = UA Mucus) Few /LPF [facility] AND [id number] 16:30:02 Test Item Value Reference Range Interpretation Comments UA WBC (test code = no gt See_Comment [Automa yanely message] The UA WBC) system which ge nerated this result transmit yanely reference range : <=5. The reference range was not used to interpr et this result as brielle l/abnormal. [facility] AND [id number] 16:30:02 Test Item Value Reference Range Interpretation Comments UA RBC (test code = 1 See_Comment [Automa yanely message] The UA RBC) system which ge nerated this result transmit yanely reference range : <=2. The reference range was not used to interpr et this result as brielle l/abnormal. [facility] AND [id number] 16:30:02 Test Item Value Reference Range Interpretation Comments UA Urobilinogen (test code = UA <=1.0 mg/dL 0.1-1.0 Urobilinogen) [facility] AND [id number] 16:30:02 Test Item Value Reference Range Interpretation Comments UA Sq Epi (test code = UA Sq Occasional /LPF Epi) [facility] AND [id number] 16:30:02 Test Item Value Reference Range Interpretation Comments UA Leuk Est (test Negative (11/02/13 11:30 code = UA Leuk Est) AM) [facility] AND [id number] 16:30:02 Test Item Value Reference Range Interpretation Comments UA Amorph Danyelle (test code = Occasional /HPF UA Amorph Danyelle) [facility] AND [id number] 16:30:02 Test Item Value Reference Range Interpretation Comments UA Spec Grav (test code = UA Spec Grav) 1.009 [facility] AND [id number] 16:30:02 Test Item Value Reference Range Interpretation Comments UA Protein (test code = UA Negative mg/dL Protein) [facility] AND [id number] 16:30:02 Test Item Value Reference Range Interpretation Comments UA Turbidity (test code Slight *ABN*(11/02/13 = UA Turbidity) 11:30 AM) [facility] AND [id number] 16:30:02 Test Item Value Reference Range Interpretation Comments UA Color (test code = Yellow *NA*(11/02/13 UA Color) 11:30 AM) [facility] AND [id number] 16:30:02 Test Item Value Reference Range Interpretation Comments UA pH (test code = UA pH) 7.0 5.0-8.0 [facility] AND [id number] 16:30:02 Test Item Value Reference Range Interpretation Comments UA Nitrite (test code Negative (11/02/13 11:30 = UA Nitrite) AM) [facility] AND [id number] 16:30:02 Test Item Value Reference Range Interpretation Comments UA Ketones (test code = UA Negative mg/dL Ketones) [facility] AND [id number] 16:30:02 Test Item Value Reference Range Interpretation Comments UA Glucose (test code = UA Negative mg/dL Glucose) [facility] AND [id number] 16:30:02 Test Item Value Reference Range Interpretation Comments UA Blood (test code = Negative (11/02/13 11:30 UA Blood) AM) [facility] [id number] 16:30:02 Test Item Value Reference Range Interpretation Comments UA Bili (test code = Negative *NA*(11/02/13 UA Bili) 11:30 AM) [facility]annCHEM [id number] 04:47:00 Test Item Value Reference Range Interpretation Comments Phosphorus (test code = Phosphorus) 4.3 2.5-4.5 [facility]CHE[facility] [id number] 04:47:00 Test Item Value Reference Range Interpretation Comments Magnesium Lvl (test code = Magnesium 1.6 1.8-2.4 Lvl) [facility] HospitalHcvibfoKXVYEACRNRRS6128-97-31 04:47:00 Test Item Value Reference Range Interpretation Comments AGAP (test code = AGAP) 12.5 10.0-20.0 [facility] HospitalXnzujykPLHVOEOLHCIX7636-07-47 04:47:00 Test Item Value Reference Range Interpretation Comments eGFR (test code = eGFR) 125 [facility] HospitalUxxkvsgWPINMSWEOGCW1251-59-80 04:47:00 Test Item Value Reference Range Interpretation Comments Potassium Lvl (test code = Potassium 4.5 3.5-5.1 Lvl) [facility] HospitalFdscdelQOOPQIJZMBZB1416-02-26 04:47:00 Test Item Value Reference Range Interpretation Comments Sodium Lvl (test code = Sodium Lvl) 138 135-145 [facility] HospitalStkpwfvZBPEGANCRIUA4967-07-18 04:47:00 Test Item Value Reference Range Interpretation Comments CO2 (test code = CO2) 29 24-32 [facility] HospitalTqvsmgcXXGCJRZJWSPV0421-98-38 04:47:00 Test Item Value Reference Range Interpretation Comments Chloride Lvl (test code = Chloride Lvl) 101 95-109 [facility] HospitalJyjxszwCVARIIXDKRCR7644-13-41 04:47:00 Test Item Value Reference Range Interpretation Comments Calcium Lvl (test code = Calcium Lvl) 9.1 8.5-10.5 [facility] HospitalVenysovHSCUUCLZJJNM9980-81-12 04:47:00 Test Item Value Reference Range Interpretation Comments Creatinine Lvl (test code = Creatinine 0.6 0.5-1.4 Lvl) [facility] HospitalWasfdccUFWZBLTREGYY8053-69-51 04:47:00 Test Item Value Reference Range Interpretation Comments Glucose Lvl (test code = Glucose Lvl) 129 70-99 [facility]XcuojhzVVGYLOXFTHLW4839-08-51 04:47:00 Test Item Value Reference Range Interpretation Comments BUN (test code = BUN) 18 7-22 [facility] HospitalQwhgetyHTQTGCCISU1626-13-26 04:47:00 Test Item Value Reference Range Interpretation Comments MCH (test code = MCH) 29.6 pg 27.0-31.0 [facility] HospitalKriiqrtEUCWSGSPGB2790-21-92 04:47:00 Test Item Value Reference Range Interpretation Comments MCHC (test code = MCHC) 33.9 32.0-36.0 [facility] HospitalVecylzoKGSHZIJIRP5856-86-69 04:47:00 Test Item Value Reference Range Interpretation Comments MPV (test code = MPV) 8.1 7.4-10.4 [facility] HospitalMhwzbgcTMMVPIPNBY8533-96-97 04:47:00 Test Item Value Reference Range Interpretation Comments RDW (test code = RDW) 15.0 11.5-14.5 [facility] HospitalFvihvzzIRXRTATDJK4897-68-87 04:47:00 Test Item Value Reference Range Interpretation Comments Platelet (test code = Platelet) 470 133-450 [facility] HospitalBltatjuYUSPGIWHTE7665-51-28 04:47:00 Test Item Value Reference Range Interpretation Comments WBC (test code = WBC) 9.5 3.7-10.4 [facility] HospitalMmakaljFNRLLFSCOA8909-08-28 04:47:00 Test Item Value Reference Range Interpretation Comments MCV (test code = MCV) 87.4 80.0-94.0 [facility] HospitalPliadkiRDNHSMUIRW6742-25-06 04:47:00 Test Item Value Reference Range Interpretation Comments Hct (test code = Hct) 27.9 42.0-54.0 [facility] HospitalWfezxqbYIEFECJQKL4404-33-01 04:47:00 Test Item Value Reference Range Interpretation Comments RBC (test code = RBC) 3.19 4.70-6.10 [facility] HospitalLmkumwdRUVRIBWMYU4289-97-23 04:47:00 Test Item Value Reference Range Interpretation Comments Hgb (test code = Hgb) 9.4 14.0-18.0 [facility] HospitalIgdkxzxDVWLMEMUVO7079-84-49 04:47:00 Test Item Value Reference Range Interpretation Comments Segs (test code = Segs) 67.6 45.0-75.0 [facility] HospitalEzlfxfdBEJWKMOWBV4010-16-95 04:47:00 Test Item Value Reference Range Interpretation Comments Polychrom (test code = Slight (11/01/13 11:47 Polychrom) PM) [facility] HospitalAtiddwkHBEOWNZRYN9236-91-98 04:47:00 Test Item Value Reference Range Interpretation Comments Monocytes # (test code 0.9 See_Comment [Aut omated message] The = Monocytes #) system which generated this result tra nsmitted reference range : <=0.8. The reference r matthieu was not used to int erpret this result as normal/abnormal . [facility] HospitalIdrriqcQCMDGRMFNC4477-64-85 04:47:00 Test Item Value Reference Range Interpretation Comments Eosinophils # (test code 0.2 See_Comment [A utomated message] The = Eosinophils #) system whic h generated this result tra nsmitted reference range : <=0.5. The reference r matthieu was not used to int erpret this result as normal/abnormal . [facility] HospitalQpefpvcUFNVDWFBPS1601-09-09 04:47:00 Test Item Value Reference Range Interpretation Comments Segs-Bands # (test code = Segs-Bands #) 6.4 1.5-8.1 [facility] HospitalOgfjhofTDRYSGOHGI6582-54-96 04:47:00 Test Item Value Reference Range Interpretation Comments Lymphocytes # (test code = Lymphocytes 1.9 1.0-5.5 #) [facility] HospitalYwbfxpoEJXMHUOOTG8350-37-66 04:47:00 Test Item Value Reference Range Interpretation Comments Eosinophils (test code = 2.2 See_Comment [A utomated message] The Eosinophils) system which ge nerated this result tra nsmitted reference range : <=4.0. The reference r matthieu was not used to int erpret this result as normal/abnormal . [facility] HospitalGycitnpPTNRSTJLBK1220-06-15 04:47:00 Test Item Value Reference Range Interpretation Comments Basophils (test code = 0.5 See_Comment [Aut omated message] The Basophils) system which ge nerated this result tra nsmitted reference range : <=1.0. The reference r matthieu was not used to int erpret this result as normal/abnormal . [facility] HospitalGlktiptLPOFBDNDAP8510-19-19 04:47:00 Test Item Value Reference Range Interpretation Comments Lymphocytes (test code = Lymphocytes) 20.1 20.0-40.0 [facility] HospitalWzcwyxlMZCRTYRADK8874-22-14 04:47:00 Test Item Value Reference Range Interpretation Comments Monocytes (test code = Monocytes) 9.6 2.0-12.0 [facility] HospitalDtuixpuYVDNEDVBPH1634-99-77 04:47:00 Test Item Value Reference Range Interpretation Comments Elliptocyte (test code = Slight *ABN*(11/01/13 Elliptocyte) 11:47 PM) [facility] HospitalVrtxjjoYTRULWFJLS8797-63-46 04:47:00 Test Item Value Reference Range Interpretation Comments Plt Morph (test code = Normal (11/01/13 11:47 Plt Morph) PM) [facility] [id number] 04:47:00 Test Item Value Reference Range Interpretation Comments Ca Ion WB (test code = Ca Ion WB) 1.19 1.05-1.25 [facility] [id number] 04:47:00 Test Item Value Reference Range Interpretation Comments Ca Norm WB (test code = Ca Norm WB) 1.19 1.05-1.25 [facility]2014-08-16 16:59:46 Test Item Value Reference Range Interpretation Comments Magnesium Lvl (test code = Magnesium 2.0 1.8-2.4 Lvl) [facility]2014-08-16 05:30:14 Test Item Value Reference Range Interpretation Comments Phosphorus (test code = Phosphorus) 3.5 2.5-4.5 [facility]2014-08-16 05:30:14 Test Item Value Reference Range Interpretation Comments eGFR (test code = eGFR) 135 [facility]2014-08-16 05:30:14 Test Item Value Reference Range Interpretation Comments Potassium Lvl (test code = Potassium 4.7 3.5-5.1 Lvl) [facility]2014-08-16 05:30:14 Test Item Value Reference Range Interpretation Comments Calcium Lvl (test code = Calcium Lvl) 9.1 8.5-10.5 [facility]2014-08-16 05:30:14 Test Item Value Reference Range Interpretation Comments Chloride Lvl (test code = Chloride Lvl) 104 95-109 [facility]2014-08-16 05:30:14 Test Item Value Reference Range Interpretation Comments CO2 (test code = CO2) 27 24-32 [facility]2014-08-16 05:30:14 Test Item Value Reference Range Interpretation Comments Sodium Lvl (test code = Sodium Lvl) 141 135-145 [facility]2014-08-16 05:30:14 Test Item Value Reference Range Interpretation Comments Creatinine Lvl (test code = Creatinine 0.5 0.5-1.4 Lvl) [facility]2014-08-16 05:30:14 Test Item Value Reference Range Interpretation Comments Glucose Lvl (test code = Glucose Lvl) 121 70-99 [facility]2014-08-16 05:30:14 Test Item Value Reference Range Interpretation Comments BUN (test code = BUN) 17 7-22 [facility]2014-08-16 05:30:14 Test Item Value Reference Range Interpretation Comments AGAP (test code = AGAP) 14.7 10.0-20.0 [facility] HospitalCjthemiHKPZQUZQLY7744-10-17 05:30:14 Test Item Value Reference Range Interpretation Comments PT (test code = PT) 13.0 s 12.0-14.7 [facility] HospitalYcfvtjmYHLWECYEOB0256-23-68 05:30:14 Test Item Value Reference Range Interpretation Comments PTT (test code = PTT) 33.5 s 22.9-35.8 [facility] HospitalYphturxFMZDPINBQC4878-03-55 05:30:14 Test Item Value Reference Range Interpretation Comments INR (test code = INR) 0.99 0.85-1.17 [facility]2014-08-16 05:30:12 Test Item Value Reference Range Interpretation Comments Ca Norm WB (test code = Ca Norm WB) 1.14 1.05-1.25 [facility]2014-08-16 05:30:12 Test Item Value Reference Range Interpretation Comments Ca Ion WB (test code = Ca Ion WB) 1.13 1.05-1.25 [facility] HospitalUljpijrQKTODQGZAB9289-49-58 05:30:04 Test Item Value Reference Range Interpretation Comments MPV (test code = MPV) 8.6 7.4-10.4 [facility] HospitalEezucdrCXTDQRYJOJ6233-00-40 05:30:04 Test Item Value Reference Range Interpretation Comments Platelet (test code = Platelet) 457 133-450 [facility] HospitalCvvckbvWYUCRJOXWF7059-85-29 05:30:04 Test Item Value Reference Range Interpretation Comments RDW (test code = RDW) 14.8 11.5-14.5 [facility] HospitalPvbnpjcKRTNYMBNPY5812-44-43 05:30:04 Test Item Value Reference Range Interpretation Comments MCHC (test code = MCHC) 32.4 32.0-36.0 [facility] HospitalQzgoakqFJAWVGXEAD0009-16-94 05:30:04 Test Item Value Reference Range Interpretation Comments MCV (test code = MCV) 87.7 80.0-94.0 [facility] HospitalVhakqoaTRYYBGRKQZ0690-18-59 05:30:04 Test Item Value Reference Range Interpretation Comments MCH (test code = MCH) 28.5 pg 27.0-31.0 [facility] HospitalSwmwnqyOMIAZBVWDR9515-26-08 05:30:04 Test Item Value Reference Range Interpretation Comments RBC (test code = RBC) 3.12 4.70-6.10 [facility] HospitalHzawrfuXDKHPYXYLY9948-85-31 05:30:04 Test Item Value Reference Range Interpretation Comments WBC (test code = WBC) 10.1 3.7-10.4 [facility] HospitalTqiauzcVYWGMSDHIE0784-15-31 05:30:04 Test Item Value Reference Range Interpretation Comments RBC Morph (test code = Normal (11/01/13 12:30 RBC Morph) AM) [facility] HospitalQudlhyeRICZQFZYYV3513-26-34 05:30:04 Test Item Value Reference Range Interpretation Comments Segs (test code = Segs) 75.0 45.0-75.0 [facility] HospitalMvhwxdiLBCGIANYWW0920-71-98 05:30:04 Test Item Value Reference Range Interpretation Comments Lymphocytes (test code = Lymphocytes) 14.3 20.0-40.0 [facility] HospitalIrmtckuGQBIVWNLDS7460-24-64 05:30:04 Test Item Value Reference Range Interpretation Comments Stomatocyte (test code = Slight *ABN*(11/01/13 Stomatocyte) 12:30 AM) [facility] HospitalJvawngiPYYOMTYGTB2680-58-67 05:30:04 Test Item Value Reference Range Interpretation Comments Basophils (test code = 0.6 See_Comment [Aut omated message] The Basophils) system which ge nerated this result tra nsmitted reference range : <=1.0. The reference r matthieu was not used to int erpret this result as normal/abnormal . [facility] HospitalJcorpsaJYTVIDYTVV7416-78-45 05:30:04 Test Item Value Reference Range Interpretation Comments Large Plt (test code = Slight *ABN*(11/01/13 Large Plt) 12:30 AM) [facility] HospitalLifrbagUAJMGJHVZQ2984-96-23 05:30:04 Test Item Value Reference Range Interpretation Comments Eosinophils # (test code 0.2 See_Comment [A utomated message] The = Eosinophils #) system whic h generated this result tra nsmitted reference range : <=0.5. The reference r matthieu was not used to int erpret this result as normal/abnormal . [facility] HospitalPklfkarWDAEEKAZGY3163-56-05 05:30:04 Test Item Value Reference Range Interpretation Comments Basophils # (test code 0.1 See_Comment [Aut omated message] The = Basophils #) system which generated this result tra nsmitted reference range : <=0.2. The reference r matthieu was not used to int erpret this result as normal/abnormal . [facility] HospitalOemcxkjSOAHXXIJWF9694-83-77 05:30:04 Test Item Value Reference Range Interpretation Comments Segs-Bands # (test code = Segs-Bands #) 7.6 1.5-8.1 [facility] HospitalEmkdgdzEZHHSYFHUJ3685-91-60 05:30:04 Test Item Value Reference Range Interpretation Comments Lymphocytes # (test code = Lymphocytes 1.4 1.0-5.5 #) [facility] HospitalOwvlopbDGQWQBMQRU9655-62-06 05:30:04 Test Item Value Reference Range Interpretation Comments Monocytes # (test code 0.9 See_Comment [Aut omated message] The = Monocytes #) system which generated this result tra nsmitted reference range : <=0.8. The reference r matthieu was not used to int erpret this result as normal/abnormal . [facility] HospitalLxkkoacCTKQDCPYDO6251-34-57 05:30:04 Test Item Value Reference Range Interpretation Comments Monocytes (test code = Monocytes) 8.4 2.0-12.0 [facility] HospitalMiktinjVHLUMJTQGT2420-39-37 05:30:04 Test Item Value Reference Range Interpretation Comments Eosinophils (test code = 1.7 See_Comment [A utomated message] The Eosinophils) system which ge nerated this result tra nsmitted reference range : <=4.0. The reference r matthieu was not used to int erpret this result as normal/abnormal . [facility] AND YKVVB6073-08-85 16:00:00 Test Item Value Reference Range Interpretation Comments Occult Bld Stl (test Positive *ABN*(10/31/13 code = Occult Bld Stl) 11:00 AM) [facility] WJYQH7299-10-49 15:50:57 Test Item Value Reference Range Interpretation Comments Lactic Acid Lvl (test code = Lactic 1.0 0.5-2.2 Acid Lvl) [facility] CXXBCPK8838-88-04 13:11:50 Test Item Value Reference Range Interpretation Comments Total CK (test code = Total CK) 26 12-191 [facility] VVWQQKK3740-05-18 13:11:50 Test Item Value Reference Range Interpretation Comments Troponin-T (test code no gt See_Comment [Auto mated message] The = Troponin-T) system which g enerated this result transmit yanely reference range : <=0.100. The reference r matthieu was not used to interpr et this result as brielle l/abnormal. [facility] RHDVIMI8529-45-32 13:11:50 Test Item Value Reference Range Interpretation Comments Troponin-I (test code 0.02 See_Comment [Auto mated message] The = Troponin-I) system which g enerated this result transmit yanely reference range : <=0.40. The reference r matthieu was not used to interpr et this result as brielle l/abnormal. [facility] JHJMO4506-20-73 13:11:50 Test Item Value Reference Range Interpretation Comments B/C Ratio (test code = B/C Ratio) 36 6-25 [facility] [id number] 13:11:50 Test Item Value Reference Range Interpretation Comments Globulin (test code = Globulin) 3.8 2.0-4.0 [facility]2014-08-15 13:11:50 Test Item Value Reference Range Interpretation Comments A/G Ratio (test code = A/G Ratio) 0.8 0.7-1.6 [facility] MBTZL2527-02-77 13:11:50 Test Item Value Reference Range Interpretation Comments Total Protein (test code = Total 6.8 6.4-8.4 Protein) [facility]2014-08-15 13:11:50 Test Item Value Reference Range Interpretation Comments Albumin Lvl (test code = Albumin Lvl) 3.0 3.5-5.0 [facility]2014-08-15 13:11:50 Test Item Value Reference Range Interpretation Comments Alk Phos (test code = Alk Phos) 159 39-136 [facility]2014-08-15 13:11:50 Test Item Value Reference Range Interpretation Comments ALT (test code = ALT) 75 See_Comment [Auto mated message] The system which ge nerated this result transmit yanely reference range : <=65. The reference range was not used to interpr et this result as brielle l/abnormal. [facility]2014-08-15 13:11:50 Test Item Value Reference Range Interpretation Comments AST (test code = AST) 19 See_Comment [Auto mated message] The system which ge nerated this result transmit yanely reference range : <=37. The reference range was not used to interpr et this result as brielle l/abnormal. [facility]2014-08-15 13:11:50 Test Item Value Reference Range Interpretation Comments Bili Total (test code = Bili Total) 0.2 0.2-1.3 [facility] HospitalMkwfjruSGIVQPSMQE6124-09-55 13:11:50 Test Item Value Reference Range Interpretation Comments INR (test code = INR) 0.98 0.85-1.17 [facility] HospitalYrmkdrqCMRGFDZOYB2616-30-71 13:11:50 Test Item Value Reference Range Interpretation Comments PT (test code = PT) 12.9 s 12.0-14.7 [facility] HospitalOyaxnwxVFURGFTXLF8616-92-97 13:11:50 Test Item Value Reference Range Interpretation Comments PTT (test code = PTT) 33.5 s 22.9-35.8 [place] 603824-08-15 13:11:26 Test Item Value Reference Range Interpretation Comments Basophils # (test code 0.1 See_Comment [Aut omated message] The = Basophils #) system which generated this result tra nsmitted reference range : <=0.2. The reference r matthieu was not used to int erpret this result as normal/abnormal . [facility] HospitalGtdanzgJOWORIDXJJ6553-81-53 13:11:26 Test Item Value Reference Range Interpretation Comments Polychrom (test code = Slight (10/31/13 8:11 Polychrom) AM) [facility] HospitalDvychnmBQAFFKAUMI5275-38-12 13:11:26 Test Item Value Reference Range Interpretation Comments Anisocyte (test code = 1+ *ABN*(10/31/13 Anisocyte) 8:11 AM) [facility] HospitalXmhyiowEXXVSGQNOX9436-24-38 13:11:26 Test Item Value Reference Range Interpretation Comments Plt Morph (test code = Normal (10/31/13 8:11 Plt Morph) AM) [facility] HospitalYgdilhnDXNWSZWBKQ7498-55-60 05:00:00 Test Item Value Reference Range Interpretation Comments Large Plt (test code = Slight *ABN*(10/31/13 Large Plt) 12:00 AM) [facility] HospitalWifxwpeCOZEDJNFRL2566-33-78 05:00:00 Test Item Value Reference Range Interpretation Comments Neut Vac (test code = Slight *ABN*(10/31/13 Neut Vac) 12:00 AM) [facility] HospitalTjexosbPYWXEXIAIQ6678-23-80 05:00:00 Test Item Value Reference Range Interpretation Comments Basophils # (test code 0.1 See_Comment [Aut omated message] The = Basophils #) system which generated this result tra nsmitted reference range : <=0.2. The reference r matthieu was not used to int erpret this result as normal/abnormal . [facility] HospitalPkdddhlHJJJWIFGYW1735-52-58 05:00:00 Test Item Value Reference Range Interpretation Comments Polychrom (test code = Slight (10/31/13 12:00 Polychrom) AM) [facility] HospitalDcmxamuWULPUHTEXC8103-73-66 06:00:00 Test Item Value Reference Range Interpretation Comments Large Plt (test code = Slight *ABN*(10/30/13 Large Plt) 1:00 AM) [facility] HospitalJwpisswIMAAGCJUAC2438-01-13 06:00:00 Test Item Value Reference Range Interpretation Comments Toxic Gran (test code Slight *ABN*(10/30/13 = Toxic Gran) 1:00 AM) [facility] HospitalDztfhqsVNXMGWHXON0778-80-79 06:00:00 Test Item Value Reference Range Interpretation Comments Elliptocyte (test code = Slight *ABN*(10/30/13 Elliptocyte) 1:00 AM) [facility] HospitalGtybedzPEFOZGOFLJ2268-97-97 06:00:00 Test Item Value Reference Range Interpretation Comments Anisocyte (test code = 1+ *ABN*(10/30/13 Anisocyte) 1:00 AM) [facility] HospitalRuwctzkSHJMOPOFCO3937-32-54 05:42:00 Test Item Value Reference Range Interpretation Comments Anisocyte (test code = 1+ *ABN*(10/28/13 Anisocyte) 12:42 AM) [facility] HospitalVligzgcVXILBRTIUS3565-08-12 05:42:00 Test Item Value Reference Range Interpretation Comments Metamyelocytes (test code 2.0 See_Comment [ Automated message] = Metamyelocytes) The system which generated this result transmitted ref erence range: <=1.0. T he reference range was not used to int erpret this result as normal/abnormal . [facility] HospitalUvntglcTYCIVHULFN2835-66-05 05:42:00 Test Item Value Reference Range Interpretation Comments Atypical Lymphs (test code = Atypical 0.0 Lymphs) [facility] HospitalYarrcveWMDBSNOTOT7300-24-52 05:42:00 Test Item Value Reference Range Interpretation Comments Myelocytes (test code = Myelocytes) 5.0 [facility] HospitalYitigiwSHMNOCXHOS0327-72-27 05:42:00 Test Item Value Reference Range Interpretation Comments Giant Plt (test code = Giant Plt) Occasional [facility] HospitalXqzbbysEIXCQMILLB2008-05-95 05:42:00 Test Item Value Reference Range Interpretation Comments Elliptocyte (test code = Slight *ABN*(10/28/13 Elliptocyte) 12:42 AM) [facility] HospitalHzxazqhWEEWQFLTNP1825-88-87 05:42:00 Test Item Value Reference Range Interpretation Comments Bands (test code = 1.0 See_Comment [Automat ed message] The Bands) system which ge nerated this result transmit yanely reference range : <=11.0. The reference r matthieu was not used to interpr et this result as brielle l/abnormal. [facility] HospitalGeyypqlAOGCDQKFQZ6531-29-57 05:42:00 Test Item Value Reference Range Interpretation Comments INR (test code = INR) 1.04 0.85-1.17 [facility] HospitalFirkohbOWEBYFMMYC2198-92-53 05:42:00 Test Item Value Reference Range Interpretation Comments PT (test code = PT) 13.5 s 12.0-14.7 [facility] HospitalNjcocelDTQHJLCJKV2328-66-13 05:42:00 Test Item Value Reference Range Interpretation Comments PTT (test code = PTT) 31.1 s 22.9-35.8 [place] 603824-08-11 21:02:03 Test Item Value Reference Range Interpretation Comments R-time (test code = R-time) 4.8 min 5.0-10.0 [facility] HospitalOusyfpcCWBLGHQKUK9237-02-15 21:02:03 Test Item Value Reference Range Interpretation Comments Coag Index (test code 4.0 See_Comment [Auto mated message] The = Coag Index) system which g enerated this result transmit yanely reference range : <=3.0. The reference range was not used to interpr et this result as brielle l/abnormal. [facility] HospitalYsnhhwqDETVEZBIWO6084-14-36 21:02:03 Test Item Value Reference Range Interpretation Comments Ly30 (test code = 1.2 See_Comment [Automate d message] The Ly30) system which ge nerated this result transmit yanely reference range : <=7.5. The reference range was not used to interpr et this result as brielle l/abnormal. [facility] HospitalYbkdmijETANQIUEXU7379-53-74 21:02:03 Test Item Value Reference Range Interpretation Comments G-value (test code = G-value) 17.7 4.5-11.0 [facility] HospitalKrbrqxeLOIRVNGUHN8281-75-04 21:02:03 Test Item Value Reference Range Interpretation Comments TEG Data (test code = See Note 26(10/27/13 TEG Data) 4:02 PM) [facility] HospitalPnhjlowAQZJMHYSPL4645-39-07 21:02:03 Test Item Value Reference Range Interpretation Comments Angle (test code = Angle) 75.6 degrees 53.0-72.0 [facility] HospitalVtsqxygMZJNKHJUWJ8768-13-64 21:02:03 Test Item Value Reference Range Interpretation Comments K-time (test code = K-time) 1.0 min 1.0-3.0 [facility] HospitalYrkjoyhVFZQTKPRMO0647-89-61 21:02:03 Test Item Value Reference Range Interpretation Comments Max Amp (test code = Max Amp) 77.9 mm 50.0-70.0 [facility] HospitalHcyrgjrTJHZRJHNVA2522-04-49 21:02:03 Test Item Value Reference Range Interpretation Comments TEG Interp (test Thrombelastograph results code = TEG show shortened value of R Interp) and increased values of both Angle Alpha and MA. These findings are suggestive of platelet and enzymatic hypercoagulation which may be seen in early phase of DIC. Monitor for DIC with DIC panel may be indicated. CPT:44378 [facility]ApjmbqmFTODQRYKMT6738-54-44 14:08:15 Test Item Value Reference Range Interpretation Comments Vanco Lvl (test code = Vanco Lvl) 12.4 [facility] [employer] [id number] 21:00:00 Test Item Value Reference Range Interpretation Comments ABO/Rh (test code = ABO/Rh) O POS [facility] [employer] ECOQZGH2463-66-46 21:00:00 Test Item Value Reference Range Interpretation Comments Antibody Scrn (test Negative (10/25/13 4:00 code = Antibody Scrn) PM) [facility]OJCBFVAT3651-72-10 22:34:56 Test Item Value Reference Range Interpretation Comments Vanco Tr TND (test code = Vanco Tr TND) [facility] HnwpvrjJWAGTIEWBF8247-08-21 22:34:56 Test Item Value Reference Range Interpretation Comments Vanco Tr (test code = Vanco Tr) 12.2 [facility] [employer] [id number] 15:08:01 Test Item Value Reference Range Interpretation Comments Bili Direct (test code 0.1 See_Comment [Aut omated message] The = Bili Direct) system which generated this result tra nsmitted reference range : <=0.3. The reference r matthieu was not used to int erpret this result as brielle l/abnormal. [facility] [employer] AGQWU2422-05-64 15:08:01 Test Item Value Reference Range Interpretation Comments Bili Total (test code = Bili Total) 0.4 0.2-1.3 [facility] [employer] SCYOZ6120-49-21 15:08:01 Test Item Value Reference Range Interpretation Comments ALT (test code = ALT) 116 See_Comment [Auto mated message] The system which ge nerated this result transmit yanely reference range : <=65. The reference range was not used to interpr et this result as brielle l/abnormal. [facility] [employer] EUKEI0566-56-60 15:08:01 Test Item Value Reference Range Interpretation Comments Albumin Lvl (test code = Albumin Lvl) 2.4 3.5-5.0 [facility] [employer]2014-08-08 15:08:01 Test Item Value Reference Range Interpretation Comments Alk Phos (test code = Alk Phos) 80 39-136 [facility] [employer] [id number] 15:08:01 Test Item Value Reference Range Interpretation Comments AST (test code = AST) 53 See_Comment [Auto mated message] The system which ge nerated this result transmit yanely reference range : <=37. The reference range was not used to interpr et this result as brielle l/abnormal. [facility] [employer] [id number] 15:08:01 Test Item Value Reference Range Interpretation Comments Globulin (test code = Globulin) 3.2 2.0-4.0 [facility] [employer] [id number] 15:08:01 Test Item Value Reference Range Interpretation Comments A/G Ratio (test code = A/G Ratio) 0.8 0.7-1.6 [facility] [place] [id number] 15:08:01 Test Item Value Reference Range Interpretation Comments Bili Indirect (test 0.3 See_Comment [Automa yanely message] The code = Bili Indirect) system which generated this result tra nsmitted reference range : <=1.0. The reference r matthieu was not used to int erpret this result as normal/abnormal . [facility] [employer] [id number] 15:08:01 Test Item Value Reference Range Interpretation Comments Total Protein (test code = Total 5.6 6.4-8.4 Protein) [facility]PjyoqbtGWKTXRYNOU6818-76-12 15:08:01 Test Item Value Reference Range Interpretation Comments Vanco Tr (test code = Vanco Tr) 30.1 [facility] CenterNgtfcdzJAJPNLMZDU8960-31-47 15:08:01 Test Item Value Reference Range Interpretation Comments Vanco Tr TND (test code = Vanco Tr TND) 0930 [facility] [employer] [id number] 01:47:00 Test Item Value Reference Range Interpretation Comments CK MB (test code = CK MB) 4.9 0.5-3.6 [facility] [employer] LASYUKX7701-28-17 01:47:00 Test Item Value Reference Range Interpretation Comments CK MB Index (test 3.1 See_Comment [Automate d message] The code = CK MB Index) system w [facility] generated this result transmit yanely reference range : <=2.5. The reference range was not used to interpr et this result as brielle l/abnormal. [facility] CenterannCARDIAC [id number] 01:47:00 Test Item Value Reference Range Interpretation Comments Total CK (test code = Total CK) 156 [facility] HospitalCARDIAC RDIIRPX0025-20-25 01:47:00 Test Item Value Reference Range Interpretation Comments Troponin-T (test code 0.290 See_Comment [Auto mated message] The = Troponin-T) system which g enerated this result transmit yanely reference range : <=0.100. The reference r matthieu was not used to interpr et this result as brielle l/abnormal. [facility] CenterGhwrfesQIMYBYICP3193-33-49 01:47:00 Test Item Value Reference Range Interpretation Comments Myoglobin (test code = Myoglobin) 56 72 [facility] CenterQarebqiVZVYOR6835-58-98 18:50:03 Test Item Value Reference Range Interpretation Comments LDL (Calculated) (test code = LDL 147 (Calculated)) [facility] CenterYxxcrphDRXQCB7683-06-96 18:50:03 Test Item Value Reference Range Interpretation Comments VLDL (test code = VLDL) 31 [facility] CenterOgikgnsQYGXWW5906-48-91 18:50:03 Test Item Value Reference Range Interpretation Comments Trig (test code = Trig) 153 [facility] CenterXgtiqyyYFWPEM4775-18-04 18:50:03 Test Item Value Reference Range Interpretation Comments HDL (test code = HDL) 24 [facility] CenterVoqykniDFPLIJ6269-13-41 18:50:03 Test Item Value Reference Range Interpretation Comments Chol (test code = Chol) 202 [facility] CenterIgzhmlhXCQHEI8995-39-51 18:50:03 Test Item Value Reference Range Interpretation Comments CHD Risk (test code = CHD Risk) 8.42 4.00-7.30 [id number] 14:38:19 Test Item Value Reference Range Interpretation Comments Vanco Tr TND (test code = Vanco Tr TND) 0230 [facility] HospitalPauwoedWQQXIDNZNW8246-30-56 14:38:19 Test Item Value Reference Range Interpretation Comments Vanco Tr (test code = Vanco Tr) 14.9 [facility] [id number] 13:20:54 Test Item Value Reference Range Interpretation Comments Total CK (test code = Total CK) 259 [facility] [employer]2014-08-07 13:20:54 Test Item Value Reference Range Interpretation Comments CK MB Index (test 5.0 See_Comment [Automate d message] The code = CK MB Index) system w [facility] generated this result transmit yanely reference range : <=2.5. The reference range was not used to interpr et this result as brielle l/abnormal. [facility] [employer]2014-08-07 13:20:54 Test Item Value Reference Range Interpretation Comments CK MB (test code = CK MB) 12.9 0.5-3.6 [facility] [employer]2014-08-07 13:20:28 Test Item Value Reference Range Interpretation Comments Troponin-T (test code 0.417 See_Comment [Auto mated message] The = Troponin-T) system which g enerated this result transmit yanely reference range : <=0.100. The reference r matthieu was not used to interpr et this result as brielle l/abnormal. [facility] [employer]2014-08-07 13:20:22 Test Item Value Reference Range Interpretation Comments Troponin-I (test code 5.43 See_Comment [Auto mated message] The = Troponin-I) system which g enerated this result transmit yanely reference range : <=0.40. The reference r matthieu was not used to interpr et this result as brielle l/abnormal. [facility] [employer]2014-08-07 07:11:43 Test Item Value Reference Range Interpretation Comments CK MB (test code = CK MB) 20.7 0.5-3.6 [facility] [employer]2014-08-07 07:11:43 Test Item Value Reference Range Interpretation Comments CK MB Index (test 5.8 See_Comment [Automate d message] The code = CK MB Index) system w [employer] generated this result transmit yanely reference range : <=2.5. The reference range was not used to interpr et this result as brielle l/abnormal. [facility] [employer]2014-08-07 00:47:00 Test Item Value Reference Range Interpretation Comments Troponin-I (test code 9.41 See_Comment [Auto mated message] The = Troponin-I) system which g enerated this result transmit yanely reference range : <=0.40. The reference r matthieu was not used to interpr et this result as brielle l/abnormal. [facility] [id number] 21:45:55 Test Item Value Reference Range Interpretation Comments Lactic Acid Lvl (test code = Lactic 0.6 0.5-2.2 Acid Lvl) [facility] [id number] 15:43:00 Test Item Value Reference Range Interpretation Comments RBC product (test code Product available = RBC product) (10/22/13 10:43 AM) [facility]2014-08-06 14:40:57 Test Item Value Reference Range Interpretation Comments A/G Ratio (test code = A/G Ratio) 0.8 0.7-1.6 [facility]2014-08-06 14:40:57 Test Item Value Reference Range Interpretation Comments Globulin (test code = Globulin) 3.0 2.0-4.0 [facility]2014-08-06 14:40:57 Test Item Value Reference Range Interpretation Comments B/C Ratio (test code = B/C Ratio) 43 6-25 [facility]2014-08-06 14:40:57 Test Item Value Reference Range Interpretation Comments Total Protein (test code = Total 5.4 6.4-8.4 Protein) [facility]2014-08-06 14:40:57 Test Item Value Reference Range Interpretation Comments Alk Phos (test code = Alk Phos) 96 39-136 [facility]2014-08-06 14:40:57 Test Item Value Reference Range Interpretation Comments AST (test code = AST) 195 See_Comment [Auto mated message] The system which ge nerated this result transmit yanely reference range : <=37. The reference range was not used to interpr et this result as brielle l/abnormal. [facility] [id number] 14:40:57 Test Item Value Reference Range Interpretation Comments Bili Total (test code = Bili Total) 0.8 0.2-1.3 [facility]2014-08-06 14:40:57 Test Item Value Reference Range Interpretation Comments ALT (test code = ALT) 164 See_Comment [Auto mated message] The system which ge nerated this result transmit yanely reference range : <=65. The reference range was not used to interpr et this result as brielle l/abnormal. [place] 529734-08-06 14:40:57 Test Item Value Reference Range Interpretation Comments Albumin Lvl (test code = Albumin Lvl) 2.4 3.5-5.0 [place] [address]-08-06 14:40:27 Test Item Value Reference Range Interpretation Comments Bili Direct (test code 0.4 See_Comment [Aut omated message] The = Bili Direct) system which generated this result tra nsmitted reference range : <=0.3. The reference r matthieu was not used to int erpret this result as brielle l/abnormal. [address]08-06 14:40:27 Test Item Value Reference Range Interpretation Comments Bili Indirect (test 0.4 See_Comment [Automa yanely message] The code = Bili Indirect) system which generated this result tra nsmitted reference range : <=1.0. The reference r matthieu was not used to int erpret this result as normal/abnormal . [facility]2014-08-06 11:43:00 Test Item Value Reference Range Interpretation Comments Lactic Acid Lvl (test code = Lactic 1.7 0.5-2.2 Acid Lvl) [facility] HospitalNabzbdxEPCGCNTLAO3939-61-76 11:43:00 Test Item Value Reference Range Interpretation Comments Bands (test code = 1.0 See_Comment [Automat ed message] The Bands) system which ge nerated this result transmit yanely reference range : <=11.0. The reference r matthieu was not used to interpr et this result as brielle l/abnormal. [facility] HospitalDgsqqmfWWTORQUYEX8293-25-05 11:43:00 Test Item Value Reference Range Interpretation Comments Plt Morph (test code = Normal (10/22/13 6:43 AM) Plt Morph) [facility] HospitalFdypmtfDLEFDNTGEH9811-85-47 11:43:00 Test Item Value Reference Range Interpretation Comments Atypical Lymphs (test code = Atypical 0.0 Lymphs) [facility] HospitalMjjnnitTBKZFKWFBY6644-86-38 11:43:00 Test Item Value Reference Range Interpretation Comments Metamyelocytes (test code 6.0 See_Comment [ Automated message] = Metamyelocytes) The system which generated this result transmitted ref erence range: <=1.0. T he reference range was not used to int erpret this result as normal/abnormal . [facility] HospitalOebqxcsYLJEIAERL7126-07-91 11:43:00 Test Item Value Reference Range Interpretation Comments Myoglobin (test code = Myoglobin) 328 25-72 [facility] BANK [id number] 07:58:00 Test Item Value Reference Range Interpretation Comments FFP product (test code Product available = FFP product) (10/22/13 2:58 AM) [facility] BANK [id number] 07:56:00 Test Item Value Reference Range Interpretation Comments Platelet product (test Product available code = Platelet (10/22/13 2:56 AM) product) [facility] [id number] 07:47:00 Test Item Value Reference Range Interpretation Comments RBC product (test code Product available = RBC product) (10/22/13 2:47 AM) [facility] H[id number] 07:45:00 Test Item Value Reference Range Interpretation Comments Metamyelocytes (test code 4.0 See_Comment [ Automated message] = Metamyelocytes) The system which generated this result transmitted ref erence range: <=1.0. T he reference range was not used to int erpret this result as normal/abnormal . [facility] HospitalHkkmcghVGHQAPSWKI0708-82-28 07:45:00 Test Item Value Reference Range Interpretation Comments Atypical Lymphs (test code = Atypical 0.0 Lymphs) [facility] HospitalTjcwbtmNHTINLYPDY4785-30-95 07:45:00 Test Item Value Reference Range Interpretation Comments Bands (test code = 8.0 See_Comment [Automat ed message] The Bands) system which ge nerated this result transmit yanely reference range : <=11.0. The reference r matthieu was not used to interpr et this result as brielle l/abnormal. [facility] HospitalKyqwdcyRYPXPRZIUX7240-49-30 07:45:00 Test Item Value Reference Range Interpretation Comments Max Amp (test code = Max Amp) 74.0 mm 50.0-70.0 [facility] HospitalLoxdowlPGGUZYGKLY1309-90-31 07:45:00 Test Item Value Reference Range Interpretation Comments G-value (test code = G-value) 14.2 4.5-11.0 [facility] HospitalGgrljxyEHRQEVEXQK2050-83-57 07:45:00 Test Item Value Reference Range Interpretation Comments Ly30 (test code = 1.4 See_Comment [Automate d message] The Ly30) system which ge nerated this result transmit yanely reference range : <=7.5. The reference range was not used to interpr et this result as brielle l/abnormal. [facility] HospitalQvfcsyuDLEYKQOKFV1894-61-55 07:45:00 Test Item Value Reference Range Interpretation Comments Coag Index (test code 4.9 See_Comment [Auto mated message] The = Coag Index) system which g enerated this result transmit yanely reference range : <=3.0. The reference range was not used to interpr et this result as brielle l/abnormal. [facility] HospitalHisptbyEDFCGLANIV2575-75-48 07:45:00 Test Item Value Reference Range Interpretation Comments TEG Interp (test Thrombelastograph results code = TEG show shortened value of R Interp) and increased values of both Angle Alpha and MA. These findings are suggestive of platelet and enzymatic hypercoagulation which may be seen in early phase of DIC. Monitor for DIC with DIC panel may be indicated. CPT:56783 [facility] HospitalLdkqbmdKNAIWGXYNF9228-08-37 07:45:00 Test Item Value Reference Range Interpretation Comments R-time (test code = R-time) 3.2 min 5.0-10.0 [facility] HospitalRgaiyeuUDKKGFPHHO7499-87-38 07:45:00 Test Item Value Reference Range Interpretation Comments K-time (test code = K-time) 0.8 min 1.0-3.0 [facility] HospitalWtxjlirIZNZPARBFA9505-89-05 07:45:00 Test Item Value Reference Range Interpretation Comments Angle (test code = Angle) 79.5 degrees 53.0-72.0 [facility] HospitalPmlbfkqGBMNMZQQNH4181-68-64 07:45:00 Test Item Value Reference Range Interpretation Comments TEG Data (test code = See Note 27(10/22/13 2:45 TEG Data) AM) [facility] [id number] 07:32:00 Test Item Value Reference Range Interpretation Comments Platelet product (test Product available code = Platelet (10/22/13 2:32 AM) product) [facility] [id number] 06:56:00 Test Item Value Reference Range Interpretation Comments FFP product (test code Product available = FFP product) (10/22/13 1:56 AM) [facility] [id number] 06:31:00 Test Item Value Reference Range Interpretation Comments RBC product (test code Product available = RBC product) (10/22/13 1:31 AM) [facility] [id number] 05:37:07 Test Item Value Reference Range Interpretation Comments Myoglobin (test code = Myoglobin) 993 25-72 [facility] HospitalAdtawvsLNJKNJZPEU8968-35-11 05:37:01 Test Item Value Reference Range Interpretation Comments Hypochrom (test code = Slight (10/22/13 12:37 Hypochrom) AM) [facility] HospitalMgdieaqLBRLZUXUUB2190-63-19 05:37:01 Test Item Value Reference Range Interpretation Comments Microcyte (test code = 1+ *ABN*(10/22/13 Microcyte) 12:37 AM) [facility] HospitalYlrnqvxSRZQNIDDXC6715-26-47 05:37:01 Test Item Value Reference Range Interpretation Comments Macrocyte (test code = 1+ *ABN*(10/22/13 Macrocyte) 12:37 AM) [facility] HospitalIikigfsGNYSNYAMXQ7251-17-47 05:37:01 Test Item Value Reference Range Interpretation Comments NRBC (test code = NRBC) 1 [facility] HospitalGsceshxRCAAFKEMHB8284-35-19 05:37:01 Test Item Value Reference Range Interpretation Comments Myelocytes (test code = Myelocytes) 3.0 [facility] Station[facility] [id number] 05:30:00 Test Item Value Reference Range Interpretation Comments Antibody Scrn (test Negative 1(10/22/13 code = Antibody Scrn) 12:30 AM) [facility] [id number] 05:30:00 Test Item Value Reference Range Interpretation Comments ABO/Rh (test code = ABO/Rh) O POS [facility] [id number] 03:40:53 Test Item Value Reference Range Interpretation Comments Protein CSF (test code = Protein CSF) 54 15-45 [facility] [place] [id number] 03:40:53 Test Item Value Reference Range Interpretation Comments Glucose CSF (test code = Glucose CSF) 85 45-80 [facility] [id number] 03:40:48 Test Item Value Reference Range Interpretation Comments RBC CSF (test code = 80 See_Comment [Autom ated message] The RBC CSF) system which ge nerated this result transmit yanely reference range : <=03. The reference range was not used to interpr et this result as brielle l/abnormal. [facility] [id number] 03:40:48 Test Item Value Reference Range Interpretation Comments WBC CSF (test code = 1 See_Comment [Autom ated message] The WBC CSF) system which ge nerated this result transmit yanely reference range : <=53. The reference range was not used to interpr et this result as brielle l/abnormal. [facility] [id number] 03:40:48 Test Item Value Reference Range Interpretation Comments Tube Num CSF (test xxxxxxx (10/21/13 10:40 code = Tube Num CSF) PM) [facility] [id number] 03:40:48 Test Item Value Reference Range Interpretation Comments Color CSF (test code Colorless (10/21/13 10:40 = Color CSF) PM) [facility] [id number] 03:40:48 Test Item Value Reference Range Interpretation Comments Clarity CSF (test code Slight *ABN*(10/21/13 = Clarity CSF) 10:40 PM) [facility] [id number] 03:40:48 Test Item Value Reference Range Interpretation Comments Supernat CSF (test Colorless (10/21/13 10:40 code = Supernat CSF) PM) [facility] AND [id number] 01:35:51 Test Item Value Reference Range Interpretation Comments UA Urobilinogen (test code = UA <=1.0 mg/dL 0.1-1.0 Urobilinogen) [facility] AND [id number] 01:35:51 Test Item Value Reference Range Interpretation Comments UA Protein (test code = UA Protein) 30 mg/dL [facility] AND [id number] 01:35:51 Test Item Value Reference Range Interpretation Comments UA pH (test code = UA pH) 5.0 5.0-8.0 [facility]ann[facility] [id number] 01:35:51 Test Item Value Reference Range Interpretation Comments UA Spec Grav (test code = UA Spec Grav) 1.021 [facility] AND [id number] 01:35:51 Test Item Value Reference Range Interpretation Comments UA Turbidity (test code Slight *ABN*(10/21/13 = UA Turbidity) 8:35 PM) [facility] AND [id number] 01:35:51 Test Item Value Reference Range Interpretation Comments UA Color (test code = Yellow *NA*(10/21/13 8:35 UA Color) PM) [facility] AND [id number] 01:35:51 Test Item Value Reference Range Interpretation Comments UA Bacteria (test code = UA Occasional /HPF Bacteria) [facility] AND [id number] 01:35:51 Test Item Value Reference Range Interpretation Comments UA WBC (test code = 4 See_Comment [Automa yanely message] The UA WBC) system which ge nerated this result transmit yanely reference range : <=5. The reference range was not used to interpr et this result as brielle l/abnormal. [facility] AND [id number] 01:35:51 Test Item Value Reference Range Interpretation Comments UA Sq Epi (test code = UA Sq Epi) Many /LPF [facility] AND [id number] 01:35:51 Test Item Value Reference Range Interpretation Comments UA Mucus (test code = UA Mucus) Few /LPF [facility] AND [id number] 01:35:51 Test Item Value Reference Range Interpretation Comments UA Bili (test code = Negative *NA*(10/21/13 UA Bili) 8:35 PM) [facility] AND [id number] 01:35:51 Test Item Value Reference Range Interpretation Comments UA Ketones (test code = UA Negative mg/dL Ketones) [facility] AND [id number] 01:35:51 Test Item Value Reference Range Interpretation Comments UA Glucose (test code = UA Negative mg/dL Glucose) [facility] AND [id number] 01:35:51 Test Item Value Reference Range Interpretation Comments UA Leuk Est (test code Trace *ABN*(10/21/13 8:35 = UA Leuk Est) PM) [facility] AND [id number] 01:35:51 Test Item Value Reference Range Interpretation Comments UA Nitrite (test code Negative (10/21/13 8:35 = UA Nitrite) PM) [facility] AND [id number] 01:35:51 Test Item Value Reference Range Interpretation Comments UA Blood (test code = Negative (10/21/13 8:35 UA Blood) PM) [facility] AND [id number] 01:35:51 Test Item Value Reference Range Interpretation Comments UA Hyal Cast (test 31 See_Comment [Automat ed message] The code = UA Hyal Cast) system which generated this result transmit yanely reference range : <=2. The reference range was not used to interpr et this result as brielle l/abnormal. [facility] AND [id number] 01:35:51 Test Item Value Reference Range Interpretation Comments UA Renal Epi (test code = UA Renal Epi) 1 [facility] AND [id number] 01:35:51 Test Item Value Reference Range Interpretation Comments UA Sperm (test code = UA Occasional /HPF Sperm) [facility] HospitalIawabbbZZDPISZBOP9867-44-79 00:07:00 Test Item Value Reference Range Interpretation Comments RBC Morph (test code = Normal (10/21/13 7:07 PM) RBC Morph) [facility]LE[facility] [id number] 21:38:32 Test Item Value Reference Range Interpretation Comments C difficile DNA (test Negative 28(10/21/13 code = C difficile DNA) 4:38 PM) [facility] [id number] 21:12:00 Test Item Value Reference Range Interpretation Comments Lactic Acid CSF (test code = Lactic 3.2 0.6-2.2 Acid CSF) [facility]2014-08-04 21:12:00 Test Item Value Reference Range Interpretation Comments Protein CSF (test code = Protein CSF) 34 15-45 [facility]2014-08-04 21:12:00 Test Item Value Reference Range Interpretation Comments Glucose CSF (test code = Glucose CSF) 93 45-80 [facility]2014-08-04 21:12:00 Test Item Value Reference Range Interpretation Comments Comment CSF (test Differential not code = Comment CSF) performed on WBC count of less than 5. [facility]2014-08-04 21:12:00 Test Item Value Reference Range Interpretation Comments Supernat CSF (test Colorless (10/20/13 4:12 code = Supernat CSF) PM) [facility]2014-08-04 21:12:00 Test Item Value Reference Range Interpretation Comments WBC CSF (test code = 1 See_Comment [Autom ated message] The WBC CSF) system which ge nerated this result transmit yanely reference range : <=53. The reference range was not used to interpr et this result as brielle l/abnormal. [facility] CenterObviousideaINVQTN9024-71-12 21:12:00 Test Item Value Reference Range Interpretation Comments RBC CSF (test code = 67 See_Comment [Autom ated message] The RBC CSF) system which ge nerated this result transmit yanely reference range : <=03. The reference range was not used to interpr et this result as brielle l/abnormal. [facility] HospitalAmerican [id number] 21:12:00 Test Item Value Reference Range Interpretation Comments Tube Num CSF (test xxxxxxx (10/20/13 4:12 PM) code = Tube Num CSF) [facility]American [id number] 21:12:00 Test Item Value Reference Range Interpretation Comments Clarity CSF (test code = Clear (10/20/13 4:12 Clarity CSF) PM) [facility]American TeleCareYIRFUW8489-79-09 21:12:00 Test Item Value Reference Range Interpretation Comments Color CSF (test code Colorless (10/20/13 4:12 = Color CSF) PM) [facility] CenterQedrozqVZJQLVMAYR2883-77-06 21:12:00 Test Item Value Reference Range Interpretation Comments IgG Lvl CSF (test code = IgG Lvl CSF) 4.1 2.0-4.0 [facility] CenterKpaixfbMWEJDKCGZC6929-42-90 21:12:00 Test Item Value Reference Range Interpretation Comments Alb (CPE) (test code = Alb (CPE)) 2600.0 3400.0-5000.0 [facility] CenterYutfuytZXZMWECRLJ7690-86-74 21:12:00 Test Item Value Reference Range Interpretation Comments IgG Index (test code = IgG Index) 0.6 0.3-0.7 [facility] [id number] 21:12:00 Test Item Value Reference Range Interpretation Comments IgG (CPE) (test code = IgG (CPE)) 8449 296-4951 [facility] CenterWivnyhjDXMCPCUMVQ1762-91-89 21:12:00 Test Item Value Reference Range Interpretation Comments Alb CSF (CPE) (test code = Alb CSF 16.9 14.0-25.0 (CPE)) [facility] HospitalPbyiezkNLUCYZZSHR3305-31-09 21:12:00 Test Item Value Reference Range Interpretation Comments PE Interp CSF CSF protein electrophoresis (test code = PE did not reveal evidence of Interp CSF) an oligoclonal process in the 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 The CSF IgG index is within the reference range indicating that there is no elevation in intracerebral IgG synthesis. There is also no evidence of increased permeability of the blood brain barrier based on the CSF/serum albumin ratio. The electronic medical record has been reviewed for relevant history. I have personally reviewed the test results and concur with the resident's interpretation. CPT: 19779-[place] [facility] Hospit[id number] 21:12:00 Test Item Value Reference Range Interpretation Comments Description CSF (test The gel demonstrates code = Description appropriate resolution CSF) of the main protein bands. The gamma region shows continuous distribution of proteins both in the CSF and in the serum. No oligoclonal bands are detected. [facility]2014-08-03 17:42:30 Test Item Value Reference Range Interpretation Comments UA Urobilinogen (test code = UA <=1.0 mg/dL 0.1-1.0 Urobilinogen) [facility]2014-08-03 17:42:30 Test Item Value Reference Range Interpretation Comments UA RBC (test code = 7 See_Comment [Automa yanely message] The UA RBC) system which ge nerated this result transmit yanely reference range : <=2. The reference range was not used to interpr et this result as brielle l/abnormal. [facility]2014-08-03 17:42:30 Test Item Value Reference Range Interpretation Comments UA Mucus (test code = UA Mucus) Few /LPF [facility]2014-08-03 17:42:30 Test Item Value Reference Range Interpretation Comments UA Amorph Danyelle (test code = UA Many /HPF Amorph Danyelle) [facility]2014-08-03 17:42:30 Test Item Value Reference Range Interpretation Comments UA WBC (test code = 1 See_Comment [Automa yanely message] The UA WBC) system which ge nerated this result transmit yanely reference range : <=5. The reference range was not used to interpr et this result as brielle l/abnormal. [facility]2014-08-03 17:42:30 Test Item Value Reference Range Interpretation Comments UA Leuk Est (test Negative (10/19/13 12:42 code = UA Leuk Est) PM) [facility] AND [id number] 17:42:30 Test Item Value Reference Range Interpretation Comments UA Nitrite (test code Negative (10/19/13 12:42 = UA Nitrite) PM) [facility] AND [id number] 17:42:30 Test Item Value Reference Range Interpretation Comments UA Blood (test code = Negative (10/19/13 12:42 UA Blood) PM) [facility] AND [id number] 17:42:30 Test Item Value Reference Range Interpretation Comments UA Glucose (test code = UA Negative mg/dL Glucose) [facility] AND [id number] 17:42:30 Test Item Value Reference Range Interpretation Comments UA Ketones (test code = UA Negative mg/dL Ketones) [facility] AND [id number] 17:42:30 Test Item Value Reference Range Interpretation Comments UA pH (test code = UA pH) 7.5 5.0-8.0 [facility] AND [id number] 17:42:30 Test Item Value Reference Range Interpretation Comments UA Bili (test code = Negative *NA*(10/19/13 UA Bili) 12:42 PM) [facility] AND [id number] 17:42:30 Test Item Value Reference Range Interpretation Comments UA Protein (test code = UA Protein) 20 mg/dL [facility] AND [id number] 17:42:30 Test Item Value Reference Range Interpretation Comments UA Sq Epi (test code = UA Sq Epi) None Seen [facility] AND [id number] 17:42:30 Test Item Value Reference Range Interpretation Comments UA Spec Grav (test code = UA Spec Grav) 1.016 [facility] AND [id number] 17:42:30 Test Item Value Reference Range Interpretation Comments UA Turbidity (test code Marked *ABN*(10/19/13 = UA Turbidity) 12:42 PM) [facility] AND [id number] 17:42:30 Test Item Value Reference Range Interpretation Comments UA Color (test code = Yellow *NA*(10/19/13 UA Color) 12:42 PM) [facility] [id number] 05:00:09 Test Item Value Reference Range Interpretation Comments Bili Direct (test code 0.1 See_Comment [Aut omated message] The = Bili Direct) system which generated this result tra nsmitted reference range : <=0.3. The reference r matthieu was not used to int erpret this result as brielle l/abnormal. [facility] [id number] 05:00:09 Test Item Value Reference Range Interpretation Comments Bili Indirect (test 0.2 See_Comment [Automa yanely message] The code = Bili Indirect) system which generated this result tra nsmitted reference range : <=1.0. The reference r matthieu was not used to int erpret this result as normal/abnormal . [facility] [id number] 05:00:00 Test Item Value Reference Range Interpretation Comments Osmolality (test code = Osmolality) 311 280-300 [id number] 02:45:56 Test Item Value Reference Range Interpretation Comments Macrocyte (test code = 1+ *ABN*(10/16/13 Macrocyte) 9:45 PM) [facility] [id number] 02:45:56 Test Item Value Reference Range Interpretation Comments Smudge (test code = Slight (10/16/13 9:45 Smudge) PM) [facility] [id number] 02:45:56 Test Item Value Reference Range Interpretation Comments Myelocytes (test code = Myelocytes) 2.0 [facility] [id number] 14:20:00 Test Item Value Reference Range Interpretation Comments Smudge (test code = Smudge) [facility]ional [facility] [id number] 09:30:00 Test Item Value Reference Range Interpretation Comments Antibody Scrn (test Negative (10/16/13 4:30 code = Antibody Scrn) AM) [facility] [employer] [id number] 09:30:00 Test Item Value Reference Range Interpretation Comments ABO/Rh (test code = ABO/Rh) O POS [facility] [id number] 04:18:00 Test Item Value Reference Range Interpretation Comments Macrocyte (test code = 1+ *ABN*(10/15/13 Macrocyte) 11:18 PM) [facility] [id number] 04:18:00 Test Item Value Reference Range Interpretation Comments Smudge (test code = Slight (10/15/13 11:18 Smudge) PM) [facility] [id number] 04:18:00 Test Item Value Reference Range Interpretation Comments NRBC (test code = NRBC) 1 [facility] HospitalLanxypkNRRTSBLVWC0718-16-28 23:16:50 Test Item Value Reference Range Interpretation Comments Tot Cell Ct (test code = Tot Cell Ct) 100 1 [facility] [id number] 19:22:12 Test Item Value Reference Range Interpretation Comments Tot Cell Ct (test code = Tot Cell Ct) 100 1 [facility] AND [id number] 05:47:00 Test Item Value Reference Range Interpretation Comments UA Amorph Danyelle (test code = Occasional /HPF UA Amorph Danyelle) [facility] AND [id number] 05:47:00 Test Item Value Reference Range Interpretation Comments Micro? (test code = Performed *NA*(10/15/13 Micro?) 12:47 AM) [facility] [id number] 15:02:00 Test Item Value Reference Range Interpretation Comments NRBC (test code = NRBC) 1 [facility]2014-07-27 20:07:00 Test Item Value Reference Range Interpretation Comments Supernat CSF (test code Xanthoch = Supernat CSF) 19*ABN*(10/12/13 3:07 PM) [facility]2014-07-27 20:07:00 Test Item Value Reference Range Interpretation Comments Clarity CSF (test code = Clear (10/12/13 3:07 Clarity CSF) PM) [facility]2014-07-27 20:07:00 Test Item Value Reference Range Interpretation Comments WBC CSF (test code = 1 See_Comment [Autom ated message] The WBC CSF) system which ge nerated this result transmit yanely reference range : <=53. The reference range was not used to interpr et this result as brielle l/abnormal. [facility]2014-07-27 20:07:00 Test Item Value Reference Range Interpretation Comments RBC CSF (test code = 21 See_Comment [Autom ated message] The RBC CSF) system which ge nerated this result transmit yanely reference range : <=03. The reference range was not used to interpr et this result as brielle l/abnormal. [facility] [id number] 20:07:00 Test Item Value Reference Range Interpretation Comments Tube Num CSF (test See Note 18(10/12/13 code = Tube Num CSF) 3:07 PM) [facility] [id number] 20:07:00 Test Item Value Reference Range Interpretation Comments Color CSF (test code Xanthoch *ABN*(10/12/13 = Color CSF) 3:07 PM) [facility] [id number] 20:07:00 Test Item Value Reference Range Interpretation Comments Protein CSF (test code = Protein CSF) 57 15-45 [facility] [id number] 20:07:00 Test Item Value Reference Range Interpretation Comments Glucose CSF (test code = Glucose CSF) 88 45-80 [facility] AND [id number] 14:55:30 Test Item Value Reference Range Interpretation Comments UA RBC (test code = 2 See_Comment [Automa yanely message] The UA RBC) system which ge nerated this result transmit yanely reference range : <=2. The reference range was not used to interpr et this result as brielle l/abnormal. [facility] [id number] 06:33:00 Test Item Value Reference Range Interpretation Comments Trig (test code = Trig) 501 [facility] [id number] 01:35:00 Test Item Value Reference Range Interpretation Comments Osmolality (test code = Osmolality) 328 280-300 [facility]2014-07-25 19:18:00 Test Item Value Reference Range Interpretation Comments Osmolality (test code = Osmolality) 319 280-300 [facility] [id number] 07:08:56 Test Item Value Reference Range Interpretation Comments B/C Ratio (test code = B/C Ratio) 22 6-25 [id number] 22:11:00 Test Item Value Reference Range Interpretation Comments Microcyte (test code = 1+ *ABN*(10/08/13 Microcyte) 5:11 PM) [facility] [id number] 16:27:00 Test Item Value Reference Range Interpretation Comments Ammonia (test code = Ammonia) 22.0 [facility] [id number] 03:25:00 Test Item Value Reference Range Interpretation Comments Microcyte (test code = 1+ *ABN*(10/07/13 Microcyte) 10:25 PM) [facility] [id number] 17:00:00 Test Item Value Reference Range Interpretation Comments Comment CSF (test Differential not code = Comment CSF) performed on WBC count of less than 5. [facility] AND [id number] 14:50:00 Test Item Value Reference Range Interpretation Comments UA Hyal Cast (test 4 See_Comment [Automat ed message] The code = UA Hyal Cast) system which generated this result transmit yanely reference range : <=2. The reference range was not used to interpr et this result as brielle l/abnormal. [facility] AND [id number] 14:50:00 Test Item Value Reference Range Interpretation Comments UA Bacteria (test code = UA Occasional /HPF Bacteria) [facility] [id number] 14:50:00 Test Item Value Reference Range Interpretation Comments U Creatinine (test code = U Creatinine) 157.8 [facility] [id number] 14:50:00 Test Item Value Reference Range Interpretation Comments U Sodium (test code = U Sodium) 55 [facility] [id number] 13:11:00 Test Item Value Reference Range Interpretation Comments Giant Plt (test code = Slight *ABN*(10/07/13 Giant Plt) 8:11 AM) [facility] [id number] 07:20:36 Test Item Value Reference Range Interpretation Comments Amylase Lvl (test code = Amylase Lvl) 67 25-115 [facility] [id number] 07:20:36 Test Item Value Reference Range Interpretation Comments Lipase Lvl (test code = Lipase Lvl) 177 73-393 [facility] [id number] 01:46:00 Test Item Value Reference Range Interpretation Comments Giant Plt (test code = Slight *ABN*(10/06/13 Giant Plt) 8:46 PM) [facility] [id number] 01:46:00 Test Item Value Reference Range Interpretation Comments RBC Morph (test code = Normal (10/06/13 8:46 RBC Morph) PM) [facility] [id number] 18:43:29 Test Item Value Reference Range Interpretation Comments Comment CSF (test Differential not code = Comment CSF) performed on WBC count of less than 5. [facility] [id number] 18:43:29 Test Item Value Reference Range Interpretation Comments Lactic Acid CSF (test code = Lactic 2.7 0.6-2.2 Acid CSF) [id number] 18:43:00 Test Item Value Reference Range Interpretation Comments PE Interp CSF CSF protein electrophoresis (test code = PE did not reveal evidence of Interp CSF) an oligoclonal process in the 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 The CSF IgG index is within the reference range indicating that there is no elevation in intracerebral IgG synthesis. There is also no evidence of increased permeability of the blood brain barrier based on the CSF/serum albumin ratio. The electronic medical record has been reviewed for relevant history. I have personally reviewed the test results and concur with the resident's interpretation. CPT: 91959-PV [facility] [id number] 18:43:00 Test Item Value Reference Range Interpretation Comments Description CSF (test The gel demonstrates code = Description appropriate resolution CSF) of the main protein bands. The gamma region shows continuous distribution of proteins both in the CSF and in the serum. No oligoclonal bands are detected. [facility] [id number] 18:43:00 Test Item Value Reference Range Interpretation Comments IgG Index (test code = IgG Index) 0.6 0.3-0.7 [facility] [id number] 18:43:00 Test Item Value Reference Range Interpretation Comments Alb CSF (CPE) (test code = Alb CSF 4.1 14.0-25.0 (CPE)) [facility] [id number] 18:43:00 Test Item Value Reference Range Interpretation Comments IgG (CPE) (test code = IgG (CPE)) 403 708-8436 [facility] CenterKdfclrtROJIHCSJHB2247-25-08 18:43:00 Test Item Value Reference Range Interpretation Comments IgG Lvl CSF (test code = IgG Lvl CSF) 0.9 2.0-4.0 [facility] [id number] 18:43:00 Test Item Value Reference Range Interpretation Comments Alb (CPE) (test code = Alb (CPE)) 2700.0 3400.0-5000.0 [facility] CenterannBACTERIAL - [id number] 04:30:00 Test Item Value Reference Range Interpretation Comments MRSA by PCR (test Negative 29(09/29/13 code = MRSA by PCR) 11:30 PM) [facility] [id number] 04:30:00 Test Item Value Reference Range Interpretation Comments UA Trans Epi (test code = UA Trans Epi) 7 [facility]
[2022-04-18] MEDS ORDERED: ASPIRIN 81 MG CHEWABLE TABLET ONE (07:38)
[2022-04-18 07:44] LABS: Absolute Lymphocytes (CBC) 2.6 K/uL (0.7-4.9); Hematocrit 41.4 % (39.6-49.0); Lymphocytes % 25.2 % (15.3-44.8); RBC Red Blood Cell Count 5.52 M/uL (4.33-5.43)
[2022-04-18 07:48] LABS: Protime INR 0.97
[2022-04-18 08:00] LABS: ALT/SGPT 39 U/L (16-61); AST/SGOT 23 U/L (15-37); Albumin 3.1 g/dL (3.4-5.0); Alkaline Phosphatase 119 U/L (45-117); BUN Blood Urea Nitrogen 5 mg/dL (7-18); Bicarbonate 29 mmol/L (21-32); Bilirubin Total 0.2 mg/dL (0.2-1.0); Glomerular Filtration Rate 116 ml/min (=/>90); Glucose Level 190 mg/dL (74-106); Lipase 149 U/L (73-393); Magnesium 1.9 mg/dL (1.6-2.4); NT PRO-BNP 22 pg/mL (<125); Potassium 4.2 mmol/L (3.5-5.1); Protein, Total 7.4 g/dL (6.4-8.2); Sodium Level 141 mmol/L (136-145)
[2022-04-18 08:02] LABS: Bilirubin Direct < 0.1 mg/dL (0-0.2)
--- NOTE | 2022-04-18 08:03 | EDPHYS ---
Physician Documentation [facility] Name: Chucky Weinberg Age: 51 yrs Sex: Male : 1970 Arrival Date: 04/18/2022 Time: 06:40 Bed 4 Private MD: ED Physician Teo Nj HPI: 04/18 07:45 This 51 yrs old Male presents to ER via EMS with complaints of chest pain. [facility] 07:45 The patient or guardian reports chest pain that is located primarily in the anterior [facility] chest wall. Onset: 1 day(s) ago. cp , wheezing, noel. The pain does not radiate. Onset: The symptoms/episode began/occurred 1 day(s) ago. Associated signs and symptoms: The patient has no apparent associated signs or symptoms. The chest pain is described as. Modifying factors: The symptoms are alleviated by nothing. the symptoms are aggravated by nothing. Severity of pain: At its worst the pain was mild moderate in the emergency department the pain is unchanged. Historical: - Allergies: 06:48 No Known Allergies; kl - Home Meds: 06:48 aspirin 81 mg Oral chew 1 tab once daily [Active]; Ativan 1 mg Oral tab 1 tab 3 times kl per day for Anxiety [Active]; atorvastatin 20 mg Oral tab 1 tab once daily for Hyperlipidemia [Active]; baclofen pain pump daily [Active]; docusate sodium 100 mg Oral cap 1 cap once daily for constipation [Active]; doxepin 10 mg Oral cap 2 caps nightly [Active]; Keppra 500 mg Oral tab 1 tab 2 times per day [Active]; metformin 500 mg Oral tab 1 tab 2 times per day [Active]; senna 8.6 mg Oral cap [Active]; tamsulosin 0.4 mg Oral cp24 1 cap once daily [Active]; - PMHx: 06:48 Aneurysm; brain; CVA; Diabetes - NIDDM; Hyperlipidemia; left sided paralysis; Seizures; kl TIA; - PSHx: 06:48 pain pump-baclofen; 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 - Social history:: Smoking status: Patient denies any tobacco usage or history of. ROS: 07:57 Constitutional: Negative for fever, chills, and weight loss, Eyes: Negative for injury, melissa pain, redness, and discharge, ENT: Negative for injury, pain, and discharge, Neck: Negative for injury, pain, and swelling, Respiratory: Negative for shortness of breath, cough, wheezing, and pleuritic chest pain, Abdomen/GI: Negative for abdominal pain, nausea, vomiting, diarrhea, and constipation, Back: Negative for injury and pain, : Negative for injury, bleeding, discharge, and swelling, MS/Extremity: Negative for injury and deformity, Skin: Negative for injury, rash, and discoloration, Psych: Negative for depression, anxiety, suicide ideation, homicidal ideation, and hallucinations, Allergy/Immunology: Negative for hives, rash, and allergies, Endocrine: Negative for neck swelling, polydipsia, polyuria, polyphagia, and marked weight changes, Hematologic/Lymphatic: Negative for swollen nodes, abnormal bleeding, and unusual bruising. 07:57 Cardiovascular: Positive for chest pain, of the chest. 07:57 Neuro: Positive for headache, of the top of head, forehead, right ear, right nondenominational, right frontal area, right side of the back of head, right temporal area, right side of forehead and right occipital area. Exam: 07:58 Constitutional: This is a well developed, well nourished patient who is awake, alert, melissa and in no acute distress. Head/Face: Normocephalic, atraumatic. Eyes: Pupils equal round and reactive to light, extra-ocular motions intact. Lids and lashes normal. Conjunctiva and sclera are non-icteric and not injected. Cornea within normal limits. Periorbital areas with no swelling, redness, or edema. ENT: Nares patent. No nasal discharge, no septal abnormalities noted. Tympanic membranes are normal and external auditory canals are clear. Oropharynx with no redness, swelling, or masses, exudates, or evidence of obstruction, uvula midline. Mucous membranes moist. Neck: Trachea midline, no thyromegaly or masses palpated, and no cervical lymphadenopathy. Supple, full range of motion without nuchal rigidity, or vertebral point tenderness. No Meningismus. Chest/axilla: Normal chest wall appearance and motion. Nontender with no deformity. No lesions are appreciated. Cardiovascular: Regular rate and rhythm with a normal S1 and S2. No gallops, murmurs, or rubs. Normal PMI, no JVD. No pulse deficits. Respiratory: Lungs have equal breath sounds bilaterally, clear to auscultation and percussion. No rales, rhonchi or wheezes noted. No increased work of breathing, no retractions or nasal flaring. Abdomen/GI: Soft, non-tender, with normal bowel sounds. No distension or tympany. No guarding or rebound. No evidence of tenderness throughout. Back: No spinal tenderness. No costovertebral tenderness. Full range of motion. Male : Normal genitalia with no discharge or lesions. Skin: Warm, dry with normal turgor. Normal color with no rashes, no lesions, and no evidence of cellulitis. MS/ Extremity: Pulses equal, no cyanosis. Neurovascular intact. Full, normal range of motion. Neuro: Awake and alert, GCS 15, oriented to person, place, time, and situation. Cranial nerves II-XII grossly intact. Motor strength 5/5 in all extremities. Sensory grossly intact. Cerebellar exam normal. Normal gait. Psych: Awake, alert, with orientation to person, place and time. Behavior, mood, and affect are within normal limits. 07:58 ECG was reviewed by the Attending Physician. 08:02 Musculoskeletal/extremity: DVT Exam: No signs of deep vein thrombosis. no pain, no melissa swelling, no tenderness, negative Homans' sign noted on exam, no appreciated bluish discoloration, no erythema, no increased warmth. Vital Signs: 06:46 BP 131 / 81; Pulse 67; Resp 20; Temp 97.8(TE); Pulse Ox 93% on R/A; Pain 4/10; kl 07:26 BP 125 / 76; Pulse 69; Resp 15; Pulse Ox 96% on R/A; jl7 08:45 BP 129 / 75; Pulse 65; Resp 15; Pulse Ox 97% ; jl7 09:15 BP 125 / 76; Pulse 68; Resp 17; Pulse Ox 96% ; jl7 Tab Coma Score: 08:02 Eye Response: spontaneous(4). Verbal Response: oriented(5). Motor Response: obeys melissa commands(6). Total: 15. 08:03 Eye Response: spontaneous(4). Verbal Response: oriented(5). Motor Response: obeys melissa commands(6). Total: 15. MDM: 06:42 Patient medically screened. [facility] 08:03 Differential diagnosis: abnormal EKG, acute myocardial infarction, acute pericarditis, melissa anxiety, chest wall pain, Cholelithiasis costochondritis, hiatal hernia, pancreatitis, pneumonia, pneumothorax, stable angina. Differential Diagnosis altered mental status. HEART Score: History: Slightly Suspicious (0), ECG: Normal (0), Age: > 45 and < 65 years (1), Risk Factors: > or = 3 Risk factors for atherosclerotic disease (2), [Hypertension] [+ Family HX] [Obesity] Troponin: < or = 1 x Normal Limit (0). The patient was given aspirin in the Emergency Department. Data reviewed: vital signs, nurses notes, lab test result(s), EKG, radiologic studies, CT scan, plain films. Consideration of Admission/Observation Patient was admitted/placed on observation. Escalation of care including admission/observation considered. Independent interpretation of the following test(s) in the Emergency Department X-Ray: My interpretation is NEG. CT Scan: My interpretation is HEAD OLD CHANGES, NO BASELINE STUDIES. 08:05 Management of patient was discussed with the following: [employer] Good[employer] Tester: NEUROSURGERY, SEND melissa TO FOR EVALUATION. 04/18 06:43 Order name: Basic Metabolic Panel; Complete Time: 08:03 [facility] 04/18 06:43 Order name: CBC with Diff; Complete Time: 08:03 [facility] 04/18 06:43 Order name: LFT's; Complete Time: 08:03 [facility] 04/18 06:43 Order name: Magnesium; Complete Time: 08:03 [facility] 04/18 06:43 Order name: NT PRO-BNP; Complete Time: 08:03 [facility] 04/18 06:43 Order name: PT-INR; Complete Time: 08:03 [facility] 04/18 06:43 Order name: Troponin HS; Complete Time: 08:03 [facility] 04/18 06:43 Order name: XRAY Chest (1 view); Complete Time: 08:28 [facility] 04/18 06:43 Order name: COVID-19/FLU A+B; Complete Time: 08:28 [facility] 04/18 06:43 Order name: Lipase; Complete Time: 08:03 [facility] 04/18 07:59 Order name: Head Brain Wo Cont CT bd 04/18 08:09 Order name: Urine Dipstick-Ancillary; Complete Time: 08:28 EDMS 04/18 06:43 Order name: EKG; Complete Time: 06:44 [facility] 04/18 06:43 Order name: Cardiac monitoring; Complete Time: 06:56 [facility] 04/18 06:43 Order name: EKG - Nurse/Tech; Complete Time: 06:56 [facility] 04/18 06:43 Order name: IV Saline Lock; Complete Time: 07:57 [facility] 04/18 06:43 Order name: Labs collected and sent; Complete Time: 07:57 [facility] 04/18 06:43 Order name: O2 Per Protocol; Complete Time: 07:57 [facility] 04/18 06:43 Order name: O2 Sat Monitoring; Complete Time: 07:57 [facility] 04/18 06:43 Order name: Urine Dipstick-Ancillary (obtain specimen); Complete Time: 08:12 [facility] EC:58 Rate is 67 beats/min. Rhythm is regular. QRS Hughes is Normal. [place] interval is normal. QRS melissa interval is normal. QT interval is normal. No Q waves. T waves are Normal. No ST changes noted. Clinical impression: Normal ECG and No evidence of ischemia. Interpreted by me. Reviewed by me. Administered Medications: 08:12 Drug: Aspirin Chewable Tablet 324 mg Route: PO; jl7 09:00 Follow up: Response: No adverse reaction jl7 08:35 Drug: Ativan (LORazepam) 1 mg Route: IVP; Site: left hand; jl7 09:00 Follow up: Response: No adverse reaction jl7 08:36 Drug: Keppra (levETIRAcetam) 1000 mg Route: PO; jl7 09:00 Follow up: Response: No adverse reaction jl7 Disposition Summary: 04/18/22 08:02 Transfer Ordered Transfer Location: [facility] melissa Reason: Higher level of care melissa Condition: Stable melissa Problem: new melissa Symptoms: have improved melissa Accepting Physician: [facility](04/18/22 09:54) jl7 Diagnosis - Chest pain, unspecified melissa - Type 2 diabetes mellitus with hyperglycemia melissa - Obesity, unspecified melissa - Headache - 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
--- NOTE | 2022-04-18 08:03 | ER ---
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 Coronavirus kl screen: Vaccine status: Patient reports receiving the 2nd dose of the covid vaccine. Ebola Screen: Patient negative for fever greater than or equal to 101.5 degrees Fahrenheit, and additional compatible Ebola Virus Disease symptoms. Initial Sepsis Screen: Does the patient meet any 2 criteria? No. Patient's initial sepsis screen is negative. Does the patient have a suspected source of infection? No. Patient's initial sepsis screen is negative. Risk Assessment: Do you want to hurt yourself or someone else? Patient reports no desire to harm self or others. 06:46 Method Of Arrival: EMS: [facility] 06:46 Acuity: JAVIER 3 kl Triage Assessment: 06:49 General: Appears uncomfortable, well groomed, well developed, Behavior is cooperative. kl Pain: Denies pain. Complains of pain in chest Quality of pain is described as pressure. EENT: No deficits noted. Neuro: Level of Consciousness is awake, alert, Oriented to person, place, time, situation, PT LEFT SIE FLACCID FROM PREVIOUS CVA. Cardiovascular: Reports chest pain, Heart tones S1 S2 Rhythm is sinus rhythm. Respiratory: No deficits noted. GI: No deficits noted. No signs and/or symptoms were reported involving the gastrointestinal system. : No deficits noted. No signs and/or symptoms were reported regarding the genitourinary system. Historical: - Allergies: 06:48 No Known Allergies; kl - Home Meds: 06:48 aspirin 81 mg Oral chew 1 tab once daily [Active]; Ativan 1 mg Oral tab 1 tab 3 times kl per day for Anxiety [Active]; atorvastatin 20 mg Oral tab 1 tab once daily for Hyperlipidemia [Active]; baclofen pain pump daily [Active]; docusate sodium 100 mg Oral cap 1 cap once daily for constipation [Active]; doxepin 10 mg Oral cap 2 caps nightly [Active]; Keppra 500 mg Oral tab 1 tab 2 times per day [Active]; metformin 500 mg Oral tab 1 tab 2 times per day [Active]; senna 8.6 mg Oral cap [Active]; tamsulosin 0.4 mg Oral cp24 1 cap once daily [Active]; - PMHx: 06:48 Aneurysm; brain; CVA; Diabetes - NIDDM; Hyperlipidemia; left sided paralysis; Seizures; kl TIA; - PSHx: 06:48 pain pump-baclofen; 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 - Social history:: Smoking status: Patient denies any tobacco usage or history of. Screenin:25 [facility] ED Fall Risk Assessment (Adult) History of falling in the last 3 months, jl7 including since admission No falls in past 3 months (0 pts) Confusion or Disorientation No (0 pts) Intoxicated or Sedated No (0 pts) Impaired Gait Yes (1 pt) Mobility Assist Device Used Yes (1 pt) Altered Elimination No (0 pt) Score/Fall Risk Level 0 - 2 = Low Risk Oriented to surroundings, Maintained a safe environment. Abuse screen: Denies threats or abuse. Denies injuries from another. Nutritional screening: No deficits noted. Tuberculosis screening: No symptoms or risk factors identified. Assessment: 07:25 General: Appears in no apparent distress. uncomfortable, Behavior is calm, cooperative, jl7 appropriate for age. Pain: Complains of pain in anterior aspect of left upper chest Pain does not radiate. Pain currently is 4 out of 10 on a pain scale. Quality of pain is described as pressure, Pain began 1 day ago. Is continuous. Neuro: [place] Agitation-Sedation Scale (RASS): -1 Drowsy Level of Consciousness is awake, alert, obeys commands, Oriented to person, place, time, situation. Cardiovascular: Patient's skin is warm and dry. Respiratory: Airway is patent Respiratory effort is even, unlabored, Respiratory pattern is regular, symmetrical. Derm: Skin is pink, warm \T\ dry. 08:30 Reassessment: Patient appears in no apparent distress at this time. No changes from jl7 previously documented assessment. Patient and/or family updated on plan of care and expected duration. Pain level reassessed. Patient is alert, oriented x 3, equal unlabored respirations, skin warm/dry/pink. 09:30 Reassessment: Patient appears in no apparent distress at this time. No changes from jl7 previously documented assessment. Patient and/or family updated on plan of care and expected duration. Pain level reassessed. Patient is alert, oriented x 3, equal unlabored respirations, skin warm/dry/pink. Vital Signs: 06:46 BP 131 / 81; Pulse 67; Resp 20; Temp 97.8(TE); Pulse Ox 93% on R/A; Pain 4/10; kl 07:26 BP 125 / 76; Pulse 69; Resp 15; Pulse Ox 96% on R/A; jl7 08:45 BP 129 / 75; Pulse 65; Resp 15; Pulse Ox 97% ; jl7 09:15 BP 125 / 76; Pulse 68; Resp 17; Pulse Ox 96% ; jl7 [place] Coma Score: 08:02 Eye Response: spontaneous(4). Verbal Response: oriented(5). Motor Response: obeys melissa commands(6). Total: 15. 08:03 Eye Response: spontaneous(4). Verbal Response: oriented(5). Motor Response: obeys melissa commands(6). Total: 15. ED Course: 06:40 Patient arrived in ED. mw2 06:42 Teo Nj MD is Attending Physician. [facility] 06:48 Triage completed. kl 07:24 Audra Welch, RN is Primary Nurse. jl7 07:25 Arm band placed on right wrist. jl7 07:25 Patient has correct armband on for positive identification. Bed in low position. Call jl7 light in reach. Side rails up X2. Client placed on continuous cardiac and pulse oximetry monitoring. NIBP monitoring applied. 07:25 Missed attempt(s): 20 gauge in right antecubital area. Bleeding controlled, band aid jl7 applied, catheter tip intact. 07:57 Initial lab(s) drawn, by me, sent to lab. Inserted saline lock: 20 gauge in left hand, jl7 using aseptic technique. Blood collected. 08:07 XRAY Chest (1 view) In Process Unspecified. EDMS 08:17 Head Brain Wo Cont CT In Process Unspecified. EDMS 09:53 No provider procedures requiring assistance completed. Patient transferred, IV remains jl7 in place. intact, No redness/swelling at site. Administered Medications: 08:12 Drug: Aspirin Chewable Tablet 324 mg Route: PO; jl7 09:00 Follow up: Response: No adverse reaction jl7 08:35 Drug: Ativan (LORazepam) 1 mg Route: IVP; Site: left hand; jl7 09:00 Follow up: Response: No adverse reaction jl7 08:36 Drug: Keppra (levETIRAcetam) 1000 mg Route: PO; jl7 09:00 Follow up: Response: No adverse reaction jl7 Medication: 07:25 VIS not applicable for this client. jl7 Outcome: 08:02 ER care complete, transfer ordered by MD. torres 09:53 Transferred by ground EMS to [facility], Transfer form completed. jl7 09:53 Condition: stable 09:53 Discharge instructions given to patient, Instructed on the need for transfer, Demonstrated understanding of instructions. 09:54 Patient left the ED. jl7 Signatures: Dispatcher [employer] EDCookie Flores, RN Teo Martinez MD MD cha Leal, Jahala, RN RN Laurel Donovan mw2
[2022-04-18 08:08] LABS: Urine Blood Negative (Negative); Urine Glucose Negative (Negative); Urine Protein Negative (Negative); Urine pH 5.5 (5.0-7.0)
[2022-04-18 08:18] LABS: SARS-COV-2 RT PCR NEGATIVE (NEGATIVE)
--- NOTE | 2022-04-18 08:19 | RAD REPORT ---
EXAM DESCRIPTION: RAD - Chest Single View - 04/18/2022 8:05 am CLINICAL HISTORY: CHEST PAIN COMPARISON: Portable 04/08/2022 TECHNIQUE: AP portable chest image was obtained 04/18/2022 8:05 am . FINDINGS: No focal mass or consolidation. A small portion of the lateral left base is obscured from field of view. No significant failure or volume overload. Heart size and vasculature are similar to p rior imaging. No significant failure or volume overload suspected. No measurable pleural effusion and no pneumothorax. No acute bony abnormality seen. No acute aortic findings suspected. IMPRESSION: No acute cardiopulmonary process. No significant change from comparison study.
--- NOTE | 2022-04-18 08:28 | RAD REPORT ---
EXAM DESCRIPTION: CT - Head Brain Wo Cont - 04/18/2022 8:15 am CLINICAL HISTORY: Headache COMPARISON: Head C Spine Cap W Con dated 04/08/2022 TECHNIQUE: Axial 5 mm thick images of the head were obtained without IV contrast. All CT scans are performed using dose optimization technique as appropriate and may include automated exposure control or mA/KV adjustment according to patient size. FINDINGS: No intracranial mass, hemorrhage or midline shift. Volumetric imaging artifacts are presen t at the junction of the frontal lobes with the anterior cranial fossa floor. No new or progressive c erebral edema. There is no shift of the midline. No acute cortical based infarction. There is focal d ecreased attenuation adjacent to the left sylvian fissure similar to prior imaging. There is a large area of cystic encephalomalacia involving significant portions of the right frontal lobe an right par ietal lobe. This extends into the occipital and posterior temporal lobes. Right craniotomy surgical c hanges are present. A NURSE PRACTITIONER shunt tube is in place entering through the left frontal bone. Tip is at the junction of the lateral and third ventricles. Ventriculomegaly is present but not clearly different from the April 08 study. Fourth ventricle rem ains enlarged. Mastoid air cells and visualized portions of the paranasal sinuses are clear of acute finding. No power be or orbital content acute finding. Arterial tree calcifications are present. Aneurysm clip or coils present in the anterior right posterior cranial fossa similar to prior imaging. No acute bony findings. IMPRESSION: Stable ventriculomegaly with no change in positioning of the ventriculostomy tube. Large area of cystic encephalomalacia involving significant portions of the right cerebral hemisphere similar to prior imaging. Minimal encephalomalacia changes are present near the left sylvian fissure also stable. No hemorrhage, new or progressive cerebral edema or other acute intracranial finding.
[2022-04-18] MEDS ORDERED: levETIRAcetam 500 MG TAB ONE (08:35)
[2022-04-18] MEDS ORDERED: LORazepam 2 MG/ML VIAL ONE (08:35)
[2022-04-18 10:04] VITALS: TEMP 97.8
[2022-04-18 10:21] VITALS: BP 125/76; O2SAT 96
--- NOTE | 2022-04-18 16:53 | EKG ---
Test Date: 2022-04-18 Test Time: 06:53:57 [employer] Light[employer] Fixtures: RV MEASUREMENT RESULTS: Intervals: Rate: 67 MN: 154 QRSD: 86 QT: 402 QTc: 424 [place]: P: 4 MN: 154 QRS: 51 T: 23 INTERPRETIVE STATEMENTS: Normal sinus rhythm Normal ECG Compared to ECG 04/08/2022 02:20:30 No significant changes Electronically Signed On 04-18-22 16:53:10 DIP TANKER by Osvaldo Gudino
== END 2022-04-18 09:54 | disposition short-term general hospital (02) ==
LOC: ER 06:37
DX: R07.89 Other chest pain (principal); E11.65 Type 2 diabetes mellitus with hyperglycemia; R51.9 Headache, unspecified; Z98.2 Presence of cerebrospinal fluid drainage device; G93.89 Other specified disorders of brain; E78.5 Hyperlipidemia, unspecified; G40.909 Epilepsy, unspecified, not intractable, without status epilepticus; Z20.822 Contact with and (suspected) exposure to COVID-19; Z79.82 Long term (current) use of aspirin
CPT/HCPCS: 93005; 85025; 80048; 36415; 83735; 85610; 80076; 81003; 84484; 83690; 83880; 0240U; 70450; 71045

== ENCOUNTER 2022-11-29 18:46 | Emergency (ER) | payer OTHER ==
[2022-11-29 19:23] LABS: Absolute Lymphocytes (CBC) 2.6 K/uL (0.7-4.9); Hematocrit 40.7 % (39.6-49.0); Lymphocytes % 20.2 % (15.3-44.8); MCV 74.8 fL (80-100); MPV 7.7 fL (7.6-11.3); Platelets 260 thou/uL (152-406); RBC Red Blood Cell Count 5.44 M/uL (4.33-5.43)
[2022-11-29] MEDS ORDERED: ACETAMINOPHEN 500 MG TAB ONE (19:36)
[2022-11-29 19:47] LABS: Potassium 4.3 mEq/L (3.5-5.1)
--- OUTSIDE RECORDS SUMMARY | 2022-11-29 19:57 | XMS REPORT | Continuity of Care Document ---
:1970 Author Organization [facility] t Address [address] [facility] [address] [place] [address] Care Team Providers Name Role Phone Unknown, Physician Primary Care Physician Unavailable Bart Shah Attending Clinician Unavailable [id number] Attending Clinician Unavailable Louis Lay Attending Clinician Unavailable MISSY FISHER Attending Clinician Unavailable CHRISTIANA REYEZ Attending Clinician Unavailable LIO MANCUSO Attending Clinician Unavailable JEANNETTE ALEXANDER Attending Clinician Unavailable Jeannette Alexander MD Attending Clinician Domenico Brush MD Attending Clinician Marlon Arreaga CRNA Attending Clinician RIGOBERTO CARRILLO Attending Clinician Unavailable Coleen De [...] Attending Clinician Unavailable Elaina Iglesias Attending Clinician Doctor Unassigned, [place] Attending Clinician Unavailable OMER MAYO Attending Clinician Unavailable OMER MAYO Attending Clinician Unavailable Omer Mayo MD Attending Clinician COLEEN DE LA PAZ Attending Clinician Unavailable Provider, [facility] Attending Clinician Unavailable Jose ZAVALA, Michelle Schaeffer Attending Clinician Unavailable 2, [facility] Attending Clinician Unavailable 1, [facility] Bed Attending Clinician Unavailable Mer Askew DO Attending Clinician Mary Fleming DO Attending Clinician Pob, [facility] Main Attending Clinician Unavailable Basil Singer MD Attending Clinician NIDHI CHAMPION Attending Clinician Unavailable LACIE BAEZA Attending Clinician Unavailable CINDY CORTEZ Attending Clinician Unavailable [id number] Admitting Clinician Unavailable AYESHA KELLEY Admitting Clinician Unavailable JEANNETTE ALEXANDER Admitting Clinician Unavailable YAZAN KNIGHT Admitting Clinician Unavailable DEEPIKA CASTRO Admitting Clinician Unavailable Deepika Castro MD Admitting Clinician ANGUS BARNES Admitting Clinician Unavailable ELAINA GREER Admitting Clinician Unavailable NIDHI CHAMPION Admitting Clinician Unavailable LACIE BAEZA Admitting Clinician Unavailable CINDY CORTEZ Admitting Clinician Unavailable Payers Payer Name Policy Type Policy Number Effective Date Expiration Date S jocelyn [employer] MEDICARE [id number] 2019-08-23 2021-03-18 ADVANTAGE O 00:00:00 00:00:00 [facility] [id number] HUMM HUMM [id number] [facility] WELLMED [id number] 2021-03-19 00:00:00 WELLMED [id number] 2021-08-17 MEDICARE 00:00:00 MEDICAID [place] [id number] 2021-11-17 [place] 00:[place]00 MEDICARE A B [id number] 2016-03-19 00:00:00 HUMANA MEDICARE C1 [id number] Common [facility]red - [facility] HUMANA MEDICARE C1 [id number] Common Sp winifred - [facility] HUMANA MEDICARE C1 [id number] Common Sp winifred - [facility] HUMANA MEDICARE C1 [id number] Common Sp winifred - [facility] HUMANA MEDICARE C1 [id number] Common Sp winifred - [facility] HUMANA MEDICARE C1 [id number] Common Sp winifred - [facility] HUMANA MEDICARE C1 [id number] Common Sp winifred - [facility] HUMANA MEDICARE C1 [id number] Common Sp winifred - [facility] HUMANA MEDICARE C1 [id number] Common Sp winifred - [facility] HUMANA MEDICARE C1 [id number] Common Sp winifred - [facility] HUMANA MEDICARE C1 [id number] Common Sp winifred - [facility] HUMANA MEDICARE C1 [id number] Common Sp winifred - [facility] HUMANA MEDICARE C1 [id number] Common Sp winifred - [facility] HUMANA MEDICARE C1 [id number] Common Sp winifred - [facility] HUMANA MEDICARE C1 [id number] Common Sp winifred - [facility] HUMANA MEDICARE C1 [id number] Common Sp winifred - [facility] HUMANA MEDICARE C1 [id number] Common Sp winifred - [facility] HUMANA MEDICARE C1 [id number] Common Sp winifred - [facility] HUMANA MEDICARE C1 [id number] Common Sp winifred - [facility] HUMANA MEDICARE C1 [id number] Common Sp winifred - [facility] HUMANA MEDICARE C1 [id number] Common Sp winifred - [facility] HUMANA MEDICARE C1 [id number] Common Sp winifred - [facility] HUMANA MEDICARE C1 [id number] Common Sp winifred - [facility] Problems Condition Condition Condition Status Onset Resolution Last Treating Co mments Source Name Details Category Date Date Treatment Clinician Date Cough Cough Disease Active Univers 5-28 ity of 00:00: [address] Obesity Obesity Disease Active Univers (BMI (BMI 5-28 ity of 30-39.9) 30-39.9) 00:00: [address] Closed Closed Disease Active [place] displaced displaced 5-16 Heal th fracture fracture 00:00: of shaft of shaft 00 of left of left clavicle clavicle 2000/40ML 2000/40ML Diagnosis Active 2021-12-07 Memoria AD AD 07-23 13:30:00 l 12/04/2021 12/04/2021 00:00: Wilson davalos Active 00 07/23/2021 [facility] FOLLOW UP FOLLOW UP Diagnosis Active 2021-11-11 Memoria Active 07-19 16:23:00 l 07/19/2021 00:00: Mauricio rizo [facility] 00 2000/40ML 2000/40ML Diagnosis Active 2020-032021-07-19 [...] 00 R51 - R51 - Diagnosis Active 2019-11-04 Mem oria HEADACHE HEADACHE 10-30 15:05:00 l Active 00:01: Demar 10/31/2019 00 MH OPID [place] 600 UNITS 600 UNITS Diagnosis Active 2019-12-17 Memoria Active 09-15 09:46:00 l 09/16/2019 00:00: Mauricio rizo [facility] 00 REFILL:200 REFILL:20 Diagnosis Active 2020-02-03 Memoria 0/40ML AD: 00/40ML 08-28 14:52:00 l 02/01/20 AD: 00:00: Demar 02/01/20 00 Active 08/29/2019 MH [facility] BOTOX INJ. BOTOX Diagnosis Active 2019-09-16 Memoria INJ. - 11:26:00 l Active 00:00: Demar 08/28/2019 00 [facility] Other Other Disease Active Univers headache headache 3-05 ity of syndrome syndrome 00:00: [place] 00 [facility] DISCHARGE DISCHARGE Diagnosis Active 2019-09-16 Memoria FOLLOW UP FOLLOW UP 3-05 11:43:00 l Active 00:00: Demar 05/22/2019 00 [facility] Brain Brain Disease Active 2019- Univers aneurysm aneurysm 1-14 ity of 00:00: [place] 00 [facility] Mobility Mobility Disease Active 2019- Unive rs impaired impaired 1-14 ity of 00:00: Medical Branch Balance Balance Disease Active 2019- Univers problem problem 1-14 ity of 00:00: [place] 00 [facility] Sleep Sleep Disease Active Univers apnea in apnea in 04-01 ity of adult adult 00:00: [place] 00 [facility] Class 3 Class 3 Disease Active Univers severe severe 04-01 ity of obesity obesity 00:00: [place] due to due to 00 Medical excess excess Branch calories calories without without serious serious comorbidit comorbidit y with y with body mass body mass index index (BMI) of (BMI) of 40.0 to 40.0 to 44.9 in 44.9 in adult adult Urinary Urinary Disease Active Univers incontinen incontinen 04-01 it y of ce, ce, 00:00: [place] unspecifie unspecifie 00 Me dical d type d type Branch Neuropathy Neuropathy Disease Active U nivers 04-01 ity of 00:00: [place] 00 [facility] Methicilli Methicill Problem Active 2018-032021-11-17 Memoria n in 04-06 00:32:03 l resistant resistant 00:00: [facility] [place] Staphyloco Staphyloco 00 ccus ccus aureus aureus (organism) (organism) Active 02/04/2019 Problem 11/17/2021 Nares-01/17<br/ >Problem added by Discern Expert. Joan Neuro, [facility], Boris Zuniga [facility] ENCEPHALOP ENCEPHALO Diagnosis Active 2018-032019-02-26 Memoria ATHY RUIZ 04-06 22:03:00 l Active 00:00: Demar 02/04/2019 00 [facility] AMS AMS Diagnosis Active 2018-032019-06-09 Mem oria POSSIBLE POSSIBLE 19 15:20:00 l SHUNT SHUNT 00:00: Demar MALFUNCTIO MALFUNCTIO 00 N N Active 02/04/2019 [facility] Demar MAES, AMS, Diagnosis Active 2018-032019-02-17 Mem oria POSSIBLE POSSIBLE 18 22:19:00 l SHUNT SHUNT 19:37: [place] MALFUNCTIO MALFUNCTIO 00 N N Active 02/03/2019 [facility] NUMBNESS NUMBNESS Diagnosis Active 2018-10-03 Memoria OF TOUNGE OF TOUNGE 09-23 14:21:00 l Active 00:00: Demar 09/23/2018 00 [facility] SLURRED SLURRED Diagnosis Active 2018-09-23 Memoria SPEECH SPEECH 7-08 23:49:00 l Active 00:00: Demar 09/23/2018 [facility] Spastic Spastic Disease Recurre [facility] hemiplegia hemiplegia nce - [place] kes affecting affecting 00:00: Medi cheryl left left 00 Center nondominan nondominan t side t side Diabetes Diabetes Disease Recurre [facility] mellitus mellitus nce 08-13 [facility] type 2 in type 2 in 00:00: Medi cheryl obese obese 00 Center Impaired Impaired Disease Active [facility] t gait and gait and 08-13 [facility] mobility mobility 00:00: Medica l 00 [place] Essential Essential Disease Active [facility] hypertensi hypertensi 08-13 [place] on on 00:00: Medical 00 [place] Communicat Communicat Disease Active C [facility] ing ing 08-10 [facility] hydrocepha hydrocepha 00:00: Me dical erin erin 00 [place] Stroke Stroke Disease Recurre [facility] (cerebrum) (cerebrum) nce 08-08 [place] kes 00:00: Medical 00 [place] LEFT-SIDED LEFT-SIDE Diagnosis Active 2020-08-09 Memoria WEAKNESS D WEAKNESS 5-17 21:56:00 l Active 00:00: Demar 08/02/2018 [facility] STROKE STROKE Diagnosis Active 2018-08-02 M emoria SYMPTOMS SYMPTOMS 5-17 16:42:00 l Active 00:00: Demar 08/02/2018 [facility] Left-sided Left-sided Disease Active U aprilers weakness weakness 3-04 ity of 00:00: [address] ARTERIOVEN ARTERIOVE Diagnosis Active 2017-032018-01-22 Memoria OUS NOUS 0-31 13:57:00 l MALFORMATI MALFORMATI 00:00: Wilson davalos ON OF ON OF BRAIN/ PT BRAIN/ PT Active 01/16/2018 [facility] Stroke Stroke Disease Active 2017-03 Univers (cerebrum) (cerebrum) 0-23 it y of 00:00: [address] Branch Hyperlipid Hyperlipid Disease Active 2017-03 U [...] 21:43:00 l Active 07:30: Demar 10/31/2017 00 [facility] H/O H/O Diagnosis Active 2017-07-03 Mem oria ANEURYSM ANEURYSM 06-23 21:52:00 l Active 00:00: Demar 06/23/2017 00 [facility] ACUTE LEFT ACUTE Diagnosis Active 2017-10-25 Memoria FD/DYSARTH LEFT 06-23 15:26:00 l [place] FD/DYSARTH 00:00: Mauricio rizo [place] Active 00 06/23/2017 [facility], Rehabilita tion HYDROCEPHA HYDROCEPH Diagnosis Active 2017-07-17 Memoria ERIN ALUS 06-23 22:07:00 l Active 00:00: Demar 06/23/2017 00 [facility], [facility] OBSTRUCTIV OBSTRUCTI Diagnosis Active 2016-12-15 Memoria E LABORATORY TECHNOLOGIST SHUNT VE LABORATORY TECHNOLOGIST 12-15 21:35:00 l SHUNT 00:00: [place] Active 00 12/15/2016 [facility] ACUTE ACUTE Diagnosis Active 2016-12-19 Mem oria DIARRHEA DIARRHEA 12-15 05:20:00 l Active 00:00: Demar 12/15/2016 00 [facility] Depression Depression Disease Active U nivers , [...] Univers disorder disorder 11-24 ity of 00:00: [place] [address] Medical Branch Urinary Urinary Disease Active Univers hesitancy hesitancy 11-24 ity of 00:00: [place] [address] Medical Branch G91.0 G91.0 Diagnosis Active 2016-10-17 Mem oria Active 10-10 08:42:00 l 10/10/2016 00:00: Mauricio rizo 00 [facility] Malfunctio Malfunctio Disease Recurre [facility] n of n of nce 3-13 [facility] intratheca intratheca 00:00: Me dical l infusion l infusion 00 Ce nter pump pump Spasticity Spasticity Disease Active [facility] 3-13 [facility] 00:00: [address] AVM AVM Diagnosis Active 2017-06-28 Mem oria RUPTURE RUPTURE 2- 17:54:00 l Active 00:00: Demar 05/03/2016 00 [facility] BRAIN BRAIN Diagnosis Active 2016-05-24 Mem oria INJURY INJURY - 11:49:00 l Active 00:00: [place] 05/03/2016 00 [facility] HEADACHE HEADACHE Diagnosis Active 2016-04-25 Memoria Active 04-25 15:25:00 l 04/25/2016 00:00: Mauricio rizo [address],[facility] EVAL FOR EVAL FOR Diagnosis Active 2016-05-02 Memoria IP IP Active 04-10 08:53:00 l 04/10/2016 00:00: Mauricio PURI [facility] 00 FALL FALL Diagnosis Active 2016-04-08 Mem oria Active 04-08 16:24:00 l 04/08/2016 00:00: Mauricio rizo [address] LEFT LEFT Diagnosis Active 2016-03-31 Mem oria SHOULDER SHOULDER 03-31 18:42:00 l PAIN PAIN 00:00: Demar Active 00 03/31/2016 [facility] I63.9 - I63.9 - Diagnosis Active 2016-05-08 Memoria "CEREBRAL "CEREBRAL 03-27 16:00:00 l INFARCTION INFARCTION 00:01: Wilson rmshelton , , 00 UNSPECIFI" UNSPECIFI" Active 03/27/2016 JAXSON VICKERSD Demar F/U F/U Diagnosis Active 2015-032016-02-09 Mem oria Active 04-05 11:12:00 l 02/04/2016 00:00: Mauricio rizo [facility] 00 SHUNT SHUNT Diagnosis Active 2015-12-14 Mem oria MALFUNCTIO MALFUNCTIO 12-07 22:07:00 l N N Active 00:00: Demar 12/08/2015 00 [facility] Acquired Acquired Disease Active [facility] S t equinovaru equinovaru 11-07 [place] s s 00:00: Medical deformity deformity 00 Cent er Cognitive Cognitive Disease Active Uni vers deficit, deficit, 11-02 ity of post-strok [place] Hypertroph Hypertroph Disease Active U nivers ic scar of ic scar of 11-02 it y of skin skin 00:00: [place] 00 Medical Branch Visual Visual Disease Active Univers disturbanc disturbanc 11-02 it y of e e 00:00: [place] 00 Medical Branch CVA CVA Diagnosis Active 2016-01-05 Mem oria Active 11-02 22:23:00 l 11/03/2015 00:00: Mauricio rizo [facility] 00 DECONTITIO DECONTITI Diagnosis Active 2015-11-09 Memoria VIVIANA ONED 11-02 15:14:00 l Active 00:00: Demar 11/03/2015 00 [facility] Equinovaru Equinovaru Disease Active [facility] s 11-02 [facility] deformity, deformity, 00:00: Me dical acquired, acquired, 00 Cent er left left Spastic Spastic Disease Active Univers hemiplegia hemiplegia 7-05 it y of affecting affecting 00:[place] left left 00 Medical nondominan nondominan Br anch t side t side SPASTIC SPASTIC Diagnosis Active 2015-08-20 Memoria HEMIPLEGIA HEMIPLEGIA 08-12 06:25:00 l Active 00:00: Demar 08/13/2015 00 [facility] ITB TRIAL ITB TRIAL Diagnosis Active 2015-08-06 Memoria Active 07-26 07:54:00 l 07/27/2015 00:00: Mauricio rizo [facility] 00 ARTERIOVEN ARTERIOVE Diagnosis Active 2015-08-02 Memoria OUS NOUS 4-29 05:18:00 l MALFORMATI MALFORMATI 00:00: He rmann ON Q28.2 ON Q28.2 00 Active 07/16/2015 [facility] PHENOL PHENOL Diagnosis Active 2015-05-24 Me moria Active 04-30 08:49:00 l 04/30/2015 00:00: Mauricio rizo [facility] 00 STROKE STROKE Diagnosis Active 2015-06-07 Me moria Active 04-29 11:45:00 l 04/29/2015 00:00: Mauricio rizo [facility] 00 RIGHT CPA RIGHT CPA Diagnosis Active 2015-04-28 Memoria Active 04-15 07:25:00 l 04/15/2015 00:00: Mauricio rizo [address] EVAL-IP EVAL-IP Diagnosis Active 2015-04-28 Memoria STROKE STROKE 04-07 12:15:00 l Active 00:00: [place] 04/07/2015 00 [facility] STROKE AND STROKE Diagnosis Active 2015-01-10 Memoria BI AND BI 11-06 16:16:00 l Active 00:00: [place] 11/06/2014 00 [facility] HEAD PAIN HEAD PAIN Diagnosis Active 2014-04-09 Memoria Active 04-05 22:00:00 l 04/05/2014 00:00: Mauricio rizo [address] 331.3 - 331.3 - Diagnosis Active 2013-032014-06-15 Memoria COMMUNICAT COMMUNICAT 04-11 17:28:00 l HYDR HYDR 00:01: Demar Active 00 02/09/2014 JAXSON Benz Communicat Problem Active 2013-032021-11-17 M emoria ing Communicat 04-08 00:32:03 l hydrocepha ing 00:00: Mauricio rizo erin hydrocepha 00 (disorder) erin (disorder) Active 02/06/2014 Problem 11/17/2021 Data migrated from [facility] on 11/10/14. Joan Neuro,[facility], [facility], MELISSA Benz,[facility], MELISSA NievesM Boris Cadena [facility], [facility] 738.19 - 738.19 - Diagnosis Active 2013-032014-06-14 Memoria ACQ HEAD ACQ HEAD 10:21:00 l DEFORM DEFORM 00:01: Demar Active 01/15/2014 OPID Demar 852.20 852.20 Diagnosis Active 2013-032014-02-22 Me moria Active 15:23:00 l 01/07/2014 00:00: Mauricio rizo [address] BRAIN STEM BRAIN Diagnosis Active 2014-01-15 Memoria AV STEM AV 09-29 16:10:00 l MALFORMATI MALFORMATI 00:00: He rmann ON ON Active 09/29/2013 [facility] SUBARACHNO Diagnosis Active 2015-05-29 Memoria ID SUBARACHNO 03-19 12:16:00 l HEMMORHAGE ID 23:59: Mauricio rizo HEMMORHAGE 00 Active 03/19/2000 [facility] [id number] Current Problem Common moderate Spirit episode of - CHI major [facility] Center prior episode [id number] Hemiplegia Problem C ommon [id number] affecting Spirit left - CHI nondominan [facility] unspecifie Medica l d Center etiology, unspecifie d hemiplegia type [id number] Hemorrhagi Problem Co mmon c stroke Spirit - [facility] [id number] Mixed Problem Common hyperlipid Spirit emia - [facility] [id number] Type 2 [place] [address] diabetes Spirit mellitus - CHI with [facility] unspecifie Center d whether terminal makeup operator insulin use [id number] Chronic Problem Commo n pain Spirit syndrome - [facility] [id number] Wheelchair Problem Co mmon bound Spirit - [facility] [id number] Primary Problem Commo n osteoarthr Spirit itis of - CHI left ankle [facility] [id number] Bipolar Problem Commo n affective Spirit disorder, - CHI currently [facility] [id number] Primary Problem Common insomnia [facility] - [facility] [id number] MIRZA Problem Common (generaliz Spirit ed anxiety - CHI disorder) [facility] [id number] Seizures Problem Commo n Spirit - [facility] [id number] Cerebral Problem Comm on arterioven Spirit ous - CHI malformati [facility] Presence Presence Problem 2018-05-21 Memoria of of 15:39:31 l cerebrospi cerebrospi He anoop nal fluid nal fluid drainage drainage device device 05/21/2018 [facility], [facility] Body mass Body mass Problem 2018-05-21 Memoria index index 15:39:31 l (BMI) (BMI) Demar 37.0-37.9, 37.0-37.9, adult adult 05/21/2018 [facility] Hemiplegia Hemiplegi Problem 2017-10-05 Memoria , a, 06:57:47 l unspecifie unspecifie He rmshelton d d affecting affecting left left nondominan nondominan t side t side 10/05/2017 [facility] Other Other Problem 2017-10-05 Memor ia specified specified 06:57:47 l anxiety anxiety Demar disorders disorders 10/05/2017 [facility] NIHSS NIHSS Problem 2017-10-05 Memor ia score 7 score 7 06:57:47 l 10/05/2017 Mauricio rizo [facility] Facial Facial Problem 2017-10-05 [place] weakness weakness 06:57:47 l 10/05/2017 Mauricio rizo [facility] Dysarthria Dysarthri Problem 2017-10-05 Memoria and a and 06:57:47 l anarthria anarthria José Luis peoples 10/05/2017 [facility] Type 2 Type 2 Problem 2017-10-05 [place] diabetes diabetes 06:57:47 l mellitus mellitus Mauricio rizo with with hyperglyce hyperglyce cliff cliff 10/05/2017 [facility] Cocaine Cocaine Problem 2017-10-05 Fl moria abuse, abuse, 06:57:47 l uncomplica uncomplica He saeedshelton yanely yanely 10/05/2017 [facility] Enlarged Enlarged Problem 2017-10-05 Memoria prostate prostate 06:57:47 l without without Demar lower lower urinary urinary tract tract symptoms symptoms 10/05/2017 [facility] Epilepsy, Problem 2017-10-05 Me moria unspecifie Epilepsy, 06:57:47 l d, not unspecifie Mauricio rizo intractabl d, not e, without intractabl status e, without epilepticu status s epilepticu s 10/05/2017 [facility] Illness, Illness, Problem 2019-02-09 Memoria unspecifie unspecifie 23:27:13 l d d Demar 02/09/2019 [facility] Encephalop Encephalo Problem 2019-02-23 Memoria ruiz magana, 23:08:45 l unspecifie unspecifie He rmann d d 02/23/2019 [facility] Congenital Congenita Problem 2018-08-12 Memoria malformati l 11:12: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 Mauricio n peripheral on of vascular peripheral system, vascular unspecifie system, d unspecifie d 08/12/2018 [facility] Other Other Problem 2018-08-12 Memor ia specified specified 11:12:30 l disorders disorders Herm shelton of brain of brain 08/12/2018 [facility] Arterioven Arteriove Problem 2016-07-14 Memoria ous nous 00:12:22 l malformati malformati He rmann on, site on, site unspecifie unspecifie d d 07/14/2016 [facility] Aneurysm Aneurysm Problem Resolve 2021-11-17 Memoria (disorder) (disorder) d 00:32:03 l Resolved [place] Problem 11/17/2021 [facility], [facility], MELISSA Benz,[facility], MELISSA Nieves,[facility] MELISSA Mederos,[facility], [facility], [facility] Gastrointe Problem Resolve 2021-11-17 Memoria stinal Gastrointe d 00:32:03 l hemorrhage stinal Mauricio n (disorder) hemorrhage (disorder) Resolved Problem 11/17/2021 [facility], [facility], MELISSA Benz,[facility], MELISSA Nieves,[facility], [facility], [facility] Increased Increased Problem Resolve 2021-11-17 Memoria frequency frequency d 00:32:03 l of of [place] urination urination (finding) (finding) Resolved Problem 11/17/2021 DUE TO LABORATORY TECHNOLOGIST SHUNT MALFUNCTIO N [facility], [facility], MELISSA Benz,[facility], MELISSA Nieves,[facility], [facility], [facility] None None Problem Resolve 2021-11-17 [place] (qualifier (qualifier d 00:32:03 l value) value) Otis Resolved Problem 11/17/2021 [facility], [facility], MELISSA Benz,[facility], MELISSA Nieves,[facility] MELISSA Mederos,[facility], [facility] Obstructiv Obstructi Problem Resolve 2021-11-17 Memoria e sleep ve sleep d 00:32:03 l apnea apnea Demar syndrome syndrome (disorder) (disorder) Resolved Problem 11/17/2021 [facility], [facility], MELISSA Benz,[facility], MELISSA Nieves,[facility], [facility] Anxiety Anxiety Problem Active 2021-11-17 Me moria (finding) (finding) 00:32:03 l Active Demar Problem 11/17/2021 [facility], [facility], MELISSA Benz,[facility], MELISSA Nieves,[facility] MELISSA Mederos,[facility], [facility] Dysarthria Dysarthri Problem Active 2021-11-17 Memoria (finding) a 00:32:03 l (finding) Demar Active Problem 11/17/2021 [facility], [facility], MELISSA Benz, MELISSA Nieves,[facility], [facility] Headache Headache Problem Active 2021-11-17 Memoria (finding) (finding) 00:32:03 l Active Demar Problem 11/17/2021 DUE TO LABORATORY TECHNOLOGIST SHUNT MALFUNCTIO N [facility], KARLOS, MELISSA Benz,[facility], MELISSA Nieves,[facility], [facility] Hemiparesi Hemipares Problem Active 2021-11-17 Memoria s is 00:32:03 l (disorder) (disorder) He rmann Active Problem 11/17/2021 [facility], [facility], MELISSA Benz, MELISSA Nieves,[facility], [facility] Hypertensi Hypertens Problem Active 2021-11-17 Memoria ve dania 00:32:03 l disorder, disorder, Herm shelton systemic systemic arterial arterial (disorder) (disorder) Active Problem 11/17/2021 [facility], [facility], MELISSA Benz,[facility], [facility] EspositoRanchita,[facility] MELISSA Mederos,[facility], [facility] [facility] [place] Obesity Obesity Problem Active 2021-11-17 Me moria (disorder) (disorder) 00:32:03 l Active Demar Problem 11/17/2021 [facility], [facility], MELISSA Benz,[facility], [facility] [place],[facility], [facility], [place] Unsteady Unsteady Problem Active 2021-11-17 Memoria when when 00:32:03 l standing standing Mauricio n (finding) (finding) Active Problem 11/17/2021 DUE TO LABORATORY TECHNOLOGIST SHUNT MALFUNCTIO N [facility], [facility], MELISSA Benz,[facility], MELISSA Nieves,[facility], [facility], [place] Diabetes Diabetes Problem Active 2021-11-17 Memoria mellitus mellitus 00:32:03 l type 2 type 2 Otis (disorder) (disorder) Active Problem 11/17/2021 Automatica lly added by Discern Expert with order of Add Problem Diabetes Type II on August 26, 2019 10:43:00 CDT with order ID: [id number] 5.0 entered by AARON ELLISON, MISSY HERNANDEZ. [facility], CEC[facility], MELISSA Nieves Disease of Disease Problem Active 2021-11-17 Memoria brain of brain 00:32:03 l (disorder) (disorder) He rmann Active Problem 11/17/2021 [facility], [facility], MELISSA Nieves,[facility] Finding of Finding Problem Active 2021-11-17 Memoria functional of 00:32:03 l performanc functional He rmann e and performanc activity e and (finding) activity (finding) Active Problem 11/17/2021 [facility], [facility], MELISSA Nieves,[facility] Leukocytos Leukocyto Problem Active 2021-11-17 Memoria is sis 00:32:03 l (disorder) (disorder) He rmann Active Problem 11/17/2021 [facility], [facility], MELISSA Nieves,[facility] Pneumonia Pneumonia Problem Active 2021-11-17 Memoria (disorder) (disorder) 00:32:03 l Active Otis Problem 11/17/2021 [facility], [facility], MELISSA Nieves,[facility] Systemic Systemic Problem Active 2021-11-17 Memoria infection infection 00:32:03 l (disorder) (disorder) He rmann Active Problem 11/17/2021 [facility], [facility], MELISSA Nieves,[facility] ANESTHESIA ANESTHESI Diagnosis Active 2018-10-03 Memoria OF SKIN A OF SKIN 14:21:00 l Active Mauricio n [facility] ENCEPHALOP ENCEPHALO Diagnosis Active 2019-02-26 Memoria ATHY, RUIZ, 22:03:00 l UNSPECIFIE UNSPECIFIE He rmshelton D D Active [facility] ANOXIC ANOXIC Diagnosis Active 2019-05-24 Me moria BRAIN BRAIN 16:03:00 l DAMAGE, DAMAGE, Otis NOT NOT ELSEWHERE ELSEWHERE CLASS CLASS Active [facility] INTCRAN INTCRAN Diagnosis Active 2019-09-16 Memoria INJ W/O INJ W/O 11:43:00 l LOSS OF LOSS OF Otis CONSCIOUSN CONSCIOUSN ESS, I ESS, I Active [facility] OBSTRUCTIV OBSTRUCTI Diagnosis Active 2019-05-24 Memoria E VE 16:03:00 l HYDROCEPHA HYDROCEPHA He rmshelton ERIN ERIN Active [facility] ILLNESS, ILLNESS, Diagnosis Active 2019-02-17 Memoria UNSPECIFIE UNSPECIFIE 22:19:00 l D D Active [facility], [facility] OTHER OTHER Diagnosis Active 2020-06-25 Mem oria MUSCLE MUSCLE 14:08:00 l SPASM SPASM Otis Active [facility] CRAMP AND CRAMP AND Diagnosis Active 2020-06-25 Memoria SPASM SPASM 14:08:00 l Active Mauricio rizo [facility] WEAKNESS WEAKNESS Diagnosis Active 2020-08-09 Memoria Active 21:56:[address] [facility] ADMINISTRT ADMINISTR Diagnosis Active 2014-01-15 Memoria VE ENCOUNT TVE 16:10:00 l NOS ENCOUNT Otis NOS Active [facility] COMMUNICAT COMMUNICA Diagnosis Active 2014-02-02 Memoria HYDROCEPHA T 22:14:00 l ERIN HYDROCEPHA Mauricio n ERIN Active [facility] ARTERIOVEN ARTERIOVE Diagnosis Active 2018-01-22 Memoria OUS NOUS 13:57:00 l MALFORMATI MALFORMATI He rmann ON OF ON OF CEREBRAL V CEREBRAL V Active [facility] OTHER OTHER Diagnosis Active 2016-01-05 Me moria CEREBROVAS CEREBROVAS 22:23:00 l CULAR CULAR [place] DISEASE DISEASE Active [facility] LEFT SIDE LEFT SIDE Diagnosis Active 2015-11-12 Memoria HEMIPLEGIA HEMIPLEGIA 16:47:00 l Active Mauricio rizo [facility] [place] ARTERIOVEN ARTERIOVE Diagnosis Active 2017-06-28 Memoria OUS NOUS 17:54:00 l MALFORMATI MALFORMATI He rmann ON, SITE ON, SITE UNSPECI UNSPECI Active [facility] COMMUNICAT COMMUNICA Diagnosis Active 2016-10-17 Memoria ING TING 08:42:00 l HYDROCEPHA HYDROCEPHA He rmann ERIN ERIN Active [facility] DIARRHEA, DIARRHEA, Diagnosis Active 2016-12-19 Memoria UNSPECIFIE UNSPECIFIE 05:20:00 l D D Active Demar [facility] OTHER OTHER Diagnosis Active 2017-10-25 Mem oria MALAISE MALAISE 15:26:00 l Active Mauricio rizo [facility] HYDROCEPHA HYDROCEPH Diagnosis Active 2017-07-17 Memoria ERIN, ALUS, 22:07:00 l UNSPECIFIE UNSPECIFIE He rmann D D Active [facility] Elevated Elevated Problem 2018-05-21 Memoria white white 15:39:31 l blood cell blood cell He rmann count, count, unspecifie unspecifie d d 05/21/2018 [facility] [place] Altered Altered Problem 2018-05-21 Fl moria mental mental 15:39:31 l status, status, Otis unspecifie unspecifie d d 05/21/2018 [place] Encounter Encounter Problem 2018-05-21 Memoria for for 15:39:31 l immunizati immunizati He rmann on on 05/21/2018 [place] Essential Essential Problem 2018-05-21 Memoria (primary) (primary) 15:39:31 l hypertensi hypertensi He rmann on on 05/21/2018 [facility] [place] Type 2 Type 2 Problem 2018-05-21 [place] diabetes diabetes 15:39:31 l mellitus mellitus Mauricio rizo without without complicati complicati ons ons 05/21/2018 [place] Hemiplegia Hemiplegi Problem 2018-05-21 Memoria and a and 15:39:31 l hemiparesi hemiparesi He rmann s s following following cerebral cerebral infarction infarction affecting affecting left left non-domina non-domina nt side nt side 05/21/2018 [place] Dysarthria Dysarthri Problem 2018-05-21 Memoria following a 15:39:31 l cerebral following [place] nn infarction cerebral infarction 9 [place] Other Other Problem 2018-05-21 Memor ia muscle muscle 15:39:31 l spasm spasm Demar 05/21/2018 [place] Obstructiv Problem 2018-05-21 M emoria e sleep Obstructiv 15:39:31 l apnea e sleep Otis (adult) apnea (pediatric (adult) ) (pediatric ) 05/21/2018 [facility], [place] Paraplegia Paraplegi Problem 2018-05-21 Memoria , a, 15:39:31 l unspecifie unspecifie He rmann d d 05/21/2018 [place] Obesity, Obesity, Problem 2018-05-21 Memoria unspecifie unspecifie 15:39:31 l d d Otis 05/21/2018 [place] Major Major Problem 2018-05-21 [place] depressive depressive 15:39:31 l disorder, disorder, Herm shelton single single episode, episode, unspecifie unspecifie d d 05/21/2018 [place] Anxiety Anxiety Problem 2018-05-21 Me moria disorder, disorder, 15:39:31 l unspecifie unspecifie He rmann d d 05/21/2018 [place] Hyperlipid Hyperlipi Problem 2018-05-21 Memoria emia demia, 15:39:31 l unspecifie unspecifie He rmann d d 05/21/2018 [facility], [place] Fall from Fall from Problem 2018-05-21 Memoria bed, bed, 15:39:31 l initial initial Demar encounter encounter 05/21/2018 [place] Presence Presence Problem 2018-05-21 Memoria of other of other 15:39:31 l specified specified Herm shelton functional functional implants implants 05/21/2018 [place] rn long term care rn long term care Problem 2018-05-21 Memoria (current) (current) 15:39:31 l use of use of [place]is oral oral hypoglycem hypoglycem ic drugs ic drugs 05/21/2018 [facility] rn long term care longterm Problem 2018-05-21 Memoria (current) (current) 15:39:31 l use of use of Demar aspirin aspirin 05/21/2018 [facility] History of Past Illness Condition Condition Condition Status Onset Resolution Last Treating Co mments Source Name Details Category Date Date Treatment Clinician Date Arterioven Arteriove Problem 2017-032018-08-12 2018-08-12 Memanderson ous nous 03-28 11:12:30 11:12:30 l malformati malformati 04:27: Wilson davalos on of on of 21 cerebral cerebral vessels vessels 01/26/2018 9 [facility] Communicat Communica Problem 2018-05-21 2018-05-21 Memanderson ing ting 11-13 15:39:31 15:39:31 l hydrocepha hydrocepha 03:38: Wilson davalos erin erin 33 11/13/2017 9 [facility] Transient Transient Problem 2017-10-05 2017-10-05 Sheree cerebral cerebral 07-10 06:57:47 06:57:47 l ischemic ischemic 03:03: Mauricio rizo attack, attack, 36 unspecifie unspecifie d d 07/10/2017 10/05/2017 [facility] Discharge Discharge Problem 2016-04-28 2016-04-28 Memoria Diagnosis: Diagnosis: 04-25 04:57:17 04:57:17 l Headache Headache 06:00: Mauricio rizo 04/25/2016 00 04/28/2016 [facility] Discharge Discharge Problem 2016-04-11 2016-04-11 Memoria Diagnosis: Diagnosis: 04-08 02:46:17 02:46:17 l Acute pain Acute pain 06:00: Wilson davalos of left of left 00 shoulder shoulder 04/08/2016 04/11/2016 [facility] Discharge Discharge Problem 2016-04-11 2016-04-11 Memoria Diagnosis: Diagnosis: 04-08 02:46:17 02:46:17 l Closed Closed 06:00: Demar comminuted comminuted 00 fracture fracture of left of left humerus humerus 04/08/2016 7 [facility] Discharge Discharge Problem 2016-04-03 2016-04-03 Memoria Diagnosis: Diagnosis: 03-31 05:33:49 05:33:49 l Fracture Fracture 06:00: Mauricio n of humeral of humeral 00 head, head, closed closed 03/31/2016 04/03/2016 [facility] Discharge Discharge Problem 2016-04-03 2016-04-03 Memoria Diagnosis: Diagnosis: 03-31 05:33:49 05:33:49 l Closed Closed 06:00: Otis fracture fracture 00 dislocatio dislocatio n of left n of left shoulder shoulder 03/31/2016 04/03/2016 [facility] Discharge Problem 2016-04-03 2016-04-03 Memoria Diagnosis: Discharge 03-31 05:33:49 05:33:49 l Accidental Diagnosis: 06:00: He rmann fall Accidental 00 fall 03/31/2016 04/03/2016 [facility] Discharge Discharge Problem 2014-09-20 2014-09-20 Memoria Diagnosis: Diagnosis: 09-17 04:52:23 04:52:23 l Headache Headache 05:00: Mauricio n 09/17/2014 00 09/20/2014 [facility] Allergies, Adverse Reactions, Alerts Allergy Allergy Status Severity Reaction(s) Onset Inactive Treating Comm ents Source Name Type Date Date Clinician No Known DA Active [facility]ie 09-28 [facility] NO KNOWN Drug Active [facility] ALLERGIE Class ity of S [facility] NO KNOWN Allergy Active [facility] Social History Social Habit Start Date Stop Date Quantity Comments Source History of Common Spirit - Tobacco Use [facility] Alcohol intake 2021-12-14 2021-12-14 [facility]:00 non-drinker of Medical Ce nter alcohol (finding) Exposure to 2021-07-25 2021-08-24 Not sure [facility] SARS-CoV-2 00:00:00 13:21:00 (event) Tobacco use and 2015-10-29 2015-10-29 Smokeless tobacco [facility] exposure 00:00:00 00:00:00 non-user [facility] Social History 2013-09-30 2013-09-30 [facility] 07:09:16 07:09:16 Sex Assigned At [address] [facility] 00:00:00 00:[facility]:00 [facility] Smoking Status Start Date Stop Date Source Tobacco smoking [facility] consumption unknown Former Smoker 2021-12-20 00:00:00 2021-12-20 [facility] 00[facility]00 [facility] Medications Ordered Filled Start Stop Current Ordering Indication Dosage Frequency Signature Comments Components Source Medication Medication Date Date Medication? Clinician (SIG) Name Name metFORMIN Yes 1000mg Take 1,[address] [facility] (GLUCOPHAGE 9-28 [facility] ) 1000 MG 14:31: mouth 2 Medic al tablet 16 (two) Center times daily with breakfast and dinner. levETIRAcet Yes 500mg Q.5D Take [address] (KEPPRA) 9-28 [facility] 500 MG 14:31: mouth 2 Medical tablet 16 (two) Center times daily. tamsulosin Yes .4mg QD Take 0.[address] [facility] (FLOMAX) 9-28 [facility] 0.4 mg Cap 14:31: mouth Medica l 24 hr 16 daily. [place] capsule traZODone Yes 50mg QD Take [address] (DESYREL) 9-28 by mouth [facility] 50 MG 14:31: nightly. Medical tablet 16 [place] sertraline Yes 100mg QD Take [address] (ZOLOFT) 9-28 mg [facility] 100 MG 14:31: mouth Medical tablet 16 daily. [place] atorvastati Yes 80mg QD Take [address] n (LIPITOR) 9-28 by mouth Luke s 20 MG 14:31: daily. Medical tablet 16 [place] gabapentin Yes 300mg Q.[id number] Take [address] (NEURONTIN) 9-28 [id number] mg by L ukes 300 MG 14:31: [...] 50 MG 14:31: nightly. Medical tablet 16 [place] sertraline 2021-0 Yes 100mg QD Take [address] (ZOLOFT) 9-28 [facility] 100 MG 14:31: mouth Medical tablet 16 daily. [place] atorvastati 2021-0 Yes 80mg QD Take [address] n (LIPITOR) 9-28 by mouth Luke s 20 MG 14:31: daily. Medical tablet 16 [place] gabapentin 2021-0 Yes 300mg Q.[id number] Take [address] (NEURONTIN) 9-28 [id number] mg by L ukes 300 MG 14:31: 3D mouth 3 Medical capsule 16 (three) Center times daily. metFORMIN 2021-0 Yes 1000mg Take 1,[address] (GLUCOPHAGE 9-28 mg [facility] ) 1000 MG 14:31: mouth 2 Medic al tablet 16 (two) Center times daily with breakfast and dinner. levETIRAcet 2-0 Yes 500mg Q.5D Take 500 C HI [...] 50 MG 14:31: nightly. Medical tablet 16 [place] sertraline 2021-0 Yes 100mg QD Take [address] (ZOLOFT) 9-28 [facility] 100 MG 14:31: mouth Medical tablet 16 daily. [place] atorvastati 2021-0 Yes 80mg QD Take [address] n (LIPITOR) 9-28 by mouth Luke s 20 MG 14:31: daily. Medical tablet 16 [place] gabapentin 2021-0 Yes 300mg Q.[id number] Take [address] (NEURONTIN) 9-28 [id number] mg by L ukes 300 MG 14:31: 3D mouth 3 Medical capsule 16 (three) Center times daily. metFORMIN 202-0 Yes 1000mg Take 1,[address] (GLUCOPHAGE [...] 50 MG 14:31: nightly. Medical tablet 16 [place] sertraline 2021-0 Yes 100mg QD Take [address] (ZOLOFT) 9-28 [facility] 100 MG 14:31: mouth Medical tablet 16 daily. [place] atorvastati 2021-0 Yes 80mg QD Take [address] n (LIPITOR) 9-28 by mouth Luke s 20 MG 14:31: daily. Medical tablet 16 [place] gabapentin 2021-0 Yes 300mg Q.[id number] Take [address] (NEURONTIN) 9-28 [id number] mg by L ukes 300 MG 14:31: [...] mouth Medica l 24 hr 16 daily. [place] capsule traZODone 2021-0 Yes 50mg QD Take [address] (DESYREL) 9-28 by mouth [facility]ukes 50 MG 14:31: nightly. Medical tablet 16 [place] sertraline 2021-0 Yes 100mg QD Take [address] (ZOLOFT) 9-28 mg [facility] 100 MG 14:31: mouth Medical tablet 16 daily. [place] atorvastati 0 Yes 80mg QD Take [address] n (LIPITOR) 9-28 by mouth Luke s 20 MG 14:31: daily. Medical tablet 16 [place] gabapentin 2021-0 Yes 300mg Q.[id number] Take [address] (NEURONTIN) 9-28 [id number] mg by L ukes 300 MG 14:31: [...] mouth Medica l 24 hr 16 daily. [place] capsule traZODone 2021-0 Yes 50mg QD Take [address] (DESYREL) 9-28 by mouth [facility]ukes 50 MG 14:31: nightly. Medical tablet 16 [place] sertraline 2021-0 Yes 100mg QD Take [address] (ZOLOFT) 9-28 mg by [facility] 100 MG 14:31: mouth Medical tablet 16 daily. [place] atorvastati 2022-0 Yes 80mg QD Take [address] n (LIPITOR) 9-28 by mouth Luke s 20 MG 14:31: daily. Medical tablet 16 [place] gabapentin 2021-0 Yes 300mg Q.[id number] Take [address] (NEURONTIN) 9-28 [id number] mg by L ukes 300 MG 14:31: 3D mouth 3 Medical capsule 16 (three) Center times daily. metFORMIN 202-0 Yes 1000mg Take 1,[address] (GLUCOPHAGE [...] mouth Medica l 24 hr 16 daily. [place] capsule traZODone 0 Yes 50mg QD Take [address] (DESYREL) 9-28 by mouth [facility]ukes 50 MG 14:31: nightly. Medical tablet 16 [place] sertraline 2021-0 Yes 100mg QD Take [address] (ZOLOFT) 9-28 mg [facility] 100 MG 14:31: mouth Medical tablet 16 daily. [place] atorvastati 0 Yes 80mg QD Take [address] n (LIPITOR) 9-28 by mouth Luke s 20 MG 14:31: daily. Medical tablet 16 [place] gabapentin 2021-0 Yes 300mg Q.[id number] Take [address] (NEURONTIN) 9-28 [id number] mg by L ukes 300 MG 14:31: [...] mouth Medica l 24 hr 16 daily. [place] capsule traZODone 2021-0 Yes 50mg QD Take [address] (DESYREL) 9-28 by mouth [facility]ukes 50 MG 14:31: nightly. Medical tablet 16 [place] sertraline 2021-0 Yes 100mg QD Take [address] (ZOLOFT) 9-28 mg [facility] 100 MG 14:31: mouth Medical tablet 16 daily. [place] atorvastati 2021-0 Yes 80mg QD Take [address] n (LIPITOR) 9-28 by mouth Luke s 20 MG 14:31: daily. Medical tablet 16 [place] gabapentin 2021-0 Yes 300mg Q.[id number] Take [address] (NEURONTIN) 9-28 [id number] mg by L ukes 300 MG 14:31: [...] mouth Medica l 24 hr 16 daily. [place] capsule traZODone 2021-0 Yes 50mg QD Take [address] (DESYREL) 9-28 by mouth [facility]ukes 50 MG 14:31: nightly. Medical tablet 16 [place] sertraline 2021-0 Yes 100mg QD Take [address] (ZOLOFT) 9-28 mg [facility] 100 MG 14:31: mouth Medical tablet 16 daily. [place] atorvastati 2021-0 Yes 80mg QD Take [address] n (LIPITOR) 9-28 by mouth Luke s 20 MG 14:31: daily. Medical tablet 16 [place] gabapentin 2021-0 Yes 300mg Q.[id number] Take [address] (NEURONTIN) 9-28 [id number] mg by L ukes 300 MG 14:31: 3D mouth 3 Medical capsule 16 (three) Center times daily. metFORMIN 202-0 Yes 1000mg Take 1,[address] (GLUCOPHAGE 9-28 mg [facility] ) 1000 MG 14:31: mouth 2 Medic al tablet 16 (two) Center times daily with breakfast and dinner. levETIRAcet 202-0 Yes 500mg Q.5D Take 500 [facility] [...] 50 MG 14:31: nightly. Medical tablet 16 [place] sertraline 0 Yes 100mg QD Take [address] (ZOLOFT) 9-28 mg [facility] 100 MG 14:31: mouth Medical tablet 16 daily. [place] atorvastati 2021-0 Yes 80mg QD Take [address] n (LIPITOR) 9-28 by mouth Luke s 20 MG 14:31: daily. Medical tablet 16 [place] gabapentin 2021-0 Yes 300mg Q.[id number] Take [address] (NEURONTIN) 9-28 [id number] mg by L ukes 300 MG 14:31: 3D mouth 3 Medical capsule 16 (three) Center times daily. metFORMIN 202-0 Yes 1000mg Take 1,[address] (GLUCOPHAGE [...] mouth Medica l 24 hr 16 daily. [place] capsule traZODone 2021-0 Yes 50mg QD Take [address] (DESYREL) 9-28 by mouth [facility] 50 MG 14:31: nightly. Medical tablet 16 [place] sertraline 2021-0 Yes 100mg QD Take [address] (ZOLOFT) 9-28 mg by [facility] 100 MG 14:31: mouth Medical tablet 16 daily. [place] atorvastati 2021-0 Yes 80mg QD Take [address] n (LIPITOR) 9-28 by mouth Luke s 20 MG 14:31: daily. Medical tablet 16 [place] gabapentin 2021-0 Yes 300mg Q.[id number] Take [address] (NEURONTIN) 9-28 [id number] mg by L ukes 300 MG 14:31: [...] mouth Medica l 24 hr 16 daily. [place] capsule traZODone 2-0 Yes 50mg QD Take [address] (DESYREL) 9-28 by mouth [facility]ukes 50 MG 14:31: nightly. Medical tablet 16 [place] sertraline 2-0 Yes 100mg QD Take [address] (ZOLOFT) 9-28 mg [facility] 100 MG 14:31: mouth Medical tablet 16 daily. [place] atorvastati 2-0 Yes 80mg QD Take [address] n (LIPITOR) 9-28 by mouth Luke s 20 MG 14:31: daily. Medical tablet 16 [place] gabapentin 202-0 Yes 300mg Q.[id number] Take [address] (NEURONTIN) 9-28 [id number] mg by L ukes 300 MG 14:31: 3D mouth 3 Medical capsule 16 (three) Center times daily. metFORMIN 202-0 Yes 1000mg Take 1,[address] (GLUCOPHAGE 9-28 mg by [facility] ) 1000 MG 14:31: mouth 2 Medic al tablet 16 (two) Center times daily with breakfast and dinner. levETIRAcet 202-0 Yes 500mg Q.5D Take 500 C [facility] [...] 50 MG 14:31: nightly. Medical tablet 16 [place] sertraline 2021-0 Yes 100mg QD Take [address] (ZOLOFT) 9-28 mg [facility] 100 MG 14:31: mouth Medical tablet 16 daily. [place] atorvastati 2021-0 Yes 80mg QD Take [address] n (LIPITOR) 9-28 by mouth Luke s 20 MG 14:31: daily. Medical tablet 16 [place] gabapentin 2021-0 Yes 300mg Q.[id number] Take [address] (NEURONTIN) 9-28 [id number] mg by L ukes 300 MG 14:31: [...] mouth Medica l 24 hr 16 daily. [place] capsule traZODone 2021-0 Yes 50mg QD Take [address] (DESYREL) 9-28 by mouth [facility] 50 MG 14:31: nightly. Medical tablet 16 [place] sertraline 2021-0 Yes 100mg QD Take [address] (ZOLOFT) 9-28 mg by [facility] 100 MG 14:31: mouth Medical tablet 16 daily. [place] atorvastati 2021-0 Yes 80mg QD Take [address] n (LIPITOR) 9-28 by mouth Luke s 20 MG 14:31: daily. Medical tablet 16 [place] gabapentin 0 Yes 300mg Q.[id number] Take [address] (NEURONTIN) 9-28 [id number] mg by L ukes 300 MG 14:31: [...] mouth Medica l 24 hr 16 daily. [place] capsule traZODone 2021-0 Yes 50mg QD Take [address] (DESYREL) 9-28 by mouth [facility] 50 MG 14:31: nightly. Medical tablet 16 [place] sertraline 2021-0 Yes 100mg QD Take [address] (ZOLOFT) 9-28 mg by [facility] 100 MG 14:31: mouth Medical tablet 16 daily. [place] atorvastati 2021-0 Yes 80mg QD Take [address] n (LIPITOR) 9-28 by mouth Luke s 20 MG 14:31: daily. Medical tablet 16 [place] gabapentin 2022-0 Yes 300mg Q.[id number] Take [address] (NEURONTIN) 9-28 [id number] mg by L ukes 300 MG 14:31: [...] mouth Medica l 24 hr 16 daily. [place] capsule traZODone 2021-0 Yes 50mg QD Take [address] (DESYREL) 9-28 by mouth [facility]ukes 50 MG 14:31: nightly. Medical tablet 16 [place] sertraline 2021-0 Yes 100mg QD Take [address] (ZOLOFT) 9-28 mg by [facility] 100 MG 14:31: mouth Medical tablet 16 daily. [place] atorvastati 2021-0 Yes 80mg QD Take [address] n (LIPITOR) 9-28 by mouth Luke s 20 MG 14:31: daily. Medical tablet 16 [place] gabapentin 2021-0 Yes 300mg Q.[id number] Take [address] (NEURONTIN) 9-28 [id number] mg by L ukes 300 MG 14:31: [...] mouth Medica l 24 hr 16 daily. [place] capsule traZODone 2021-0 Yes 50mg QD Take [address] (DESYREL) 9-28 by mouth [facility] 50 MG 14:31: nightly. Medical tablet 16 [place] sertraline 2021-0 Yes 100mg QD Take [address] (ZOLOFT) 9-28 mg by [facility] 100 MG 14:31: mouth Medical tablet 16 daily. [place] atorvastati 0 Yes 80mg QD Take [address] n (LIPITOR) 9-28 by mouth Luke s 20 MG 14:31: daily. Medical tablet 16 [place] gabapentin 0 Yes 300mg Q.[id number] Take [address] (NEURONTIN) 9-28 [id number] mg by L ukes 300 MG 14:31: 3D mouth 3 Medical capsule 16 (three) Center times daily. metFORMIN 0 Yes 1000mg Take 1,[address] (GLUCOPHAGE [...] mouth Medica l 24 hr 16 daily. [place] capsule traZODone 2021-0 Yes 50mg QD Take [address] (DESYREL) 9-28 by mouth [facility] 50 MG 14:31: nightly. Medical tablet 16 [place] sertraline 2021-0 Yes 100mg QD Take [address] (ZOLOFT) 9-28 mg by [facility] 100 MG 14:31: mouth Medical tablet 16 daily. [place] atorvastati 2021-0 Yes 80mg QD Take [address] n (LIPITOR) 9-28 by mouth Luke s 20 MG 14:31: daily. Medical tablet 16 [place] gabapentin 2021-0 Yes 300mg Q.[id number] Take [address] (NEURONTIN) 9-28 [id number] mg by L ukes 300 MG 14:31: 3D mouth 3 Medical capsule 16 (three) Center times daily. metFORMIN 202-0 Yes 1000mg Take 1,[address] (GLUCOPHAGE 9-28 mg by [facility] ) 1000 MG 14:31: mouth 2 Medic al tablet 16 (two) Center times daily with breakfast and dinner. levETIRAcet 202-0 Yes 500mg Q.5D Take 500 C [facility] [...] 50 MG 14:31: nightly. Medical tablet 16 [place] sertraline 2021-0 Yes 100mg QD Take [address] (ZOLOFT) 9-28 mg by [facility] 100 MG 14:31: mouth Medical tablet 16 daily. [place] atorvastati 2021-0 Yes 80mg QD Take [address] n (LIPITOR) 9-28 by mouth Luke s 20 MG 14:31: daily. Medical tablet 16 [place] gabapentin 2021-0 Yes 300mg Q.[id number] Take [address] (NEURONTIN) 9-28 [id number] mg by L ukes 300 MG 14:31: [...] 24 hr 16 daily. Center capsule traZODone Yes 50mg QD Take [address] (DESYREL) 12-14 by mouth [facility] 50 MG 14:31: nightly. Medical tablet 16 [place] sertraline Yes 100mg QD Take [address] (ZOLOFT) 9-28 mg by [facility] 100 MG 14:31: mouth Medical tablet 16 daily. Center atorvastati Yes 80mg QD Take [address] [facility] (LIPITOR) 12-14 by mouth Luke s 20 MG 14:31: daily. Medical tablet 16 [place] gabapentin Yes 300mg Q.[id number] Take [address] (NEURONTIN) 12-14 [id number] mg by L ukes 300 MG 14:31: 3D mouth 3 Medical capsule 16 (three) Center times daily. docusate 2021- No 100mg Q.5D Take 1 [facility] sodium 12-13- capsule [facility] (COLACE) 00:00: 23:59 (100 mg Medic al 100 MG 00 :00 total) by Center capsule mouth 2 (two) times daily for 10 days. acetaminoph 2021- No 1{tbl} Take [address] en-codeine 12-13 10-07 tablet by Yana es (Tylenol-Co 00:00: 23:59 mouth Medi cheryl deine #3) 00 :00 every 4 Center 300-30 mg (four) per tablet hours as needed for up to 10 days. Max Daily Amount: 6 tablets docusate 2021- No 100mg Q.5D Take 1 [facility] - [facility]) 00:00: 23:59 (100 mg Medic al 100 MG 00 :00 total) by Center capsule mouth 2 (two) times daily for 10 days. acetaminoph 2021- No 1{tbl} Take [address] en-codeine - 10-07 tablet by [facility] (Tylenol-Co 00:00: 23:59 mouth Medi cherly deine #3) 00 :00 every 4 Center 300-30 mg (four) per tablet hours as needed for up to 10 days. Max Daily Amount: 6 tablets docusate 2021-0 2022- No 100mg Q.5D Take 1 [facility] 9-27 10-07 [facility] ([facility]) 00:00: 23:59 (100 mg Medic al 100 MG 00 :00 total) by Center capsule mouth 2 (two) times daily for 10 days. acetaminoph 2021-0 2- No 1{tbl} Take [address] en-codeine 9- 10-07 tablet by [facility] (Tylenol-Co 00:00: 23:59 mouth Medi cheryl deine #3) 00 :00 every 4 Center 300-30 mg (four) per tablet hours as needed for up to 10 days. Max Daily Amount: 6 tablets docusate 2021-0 2- No 100mg Q.5D Take 1 [facility] 9- 10- [facility] ([facility]) 00:00: 23:59 (100 mg Medic al 100 MG 00 :00 total) by Center capsule mouth 2 (two) times daily for 10 days. acetaminoph 2021-0 2021- No 1{tbl} Take [address] en-codeine - 10- tablet by [facility] (Tylenol-Co 00:00: 23:59 mouth Medi cheryl deine #3) 00 :00 every 4 Center 300-30 mg (four) per tablet hours as needed for up to 10 days. Max Daily Amount: 6 tablets docusate 2021-0 2- No 100mg Q.5D Take 1 [facility] 9- 10-07 [facility] ([facility]) 00:00: 23:59 (100 mg Medic al 100 MG 00 :00 total) by Center capsule mouth 2 (two) times daily for 10 days. acetaminoph 2021-0 2021- No 1{tbl} Take [address] en-codeine 9- 10-07 tablet by [facility] (Tylenol-Co 00:00: 23:59 mouth Medi cheryl deine #3) 00 :00 every 4 Center 300-30 mg (four) per tablet hours as needed for up to 10 days. Max Daily Amount: 6 tablets docusate 2021-0 2022- No 100mg Q.5D Take 1 [facility] [...] Q.5D Take 1 [facility] -12-[facility] ([facility]) 00:00: 23:59 (100 mg Medic al 100 MG 00 :00 total) by Center capsule mouth 2 (two) times daily for 10 days. acetaminoph 2021- No 1{tbl} Take [address] en-codeine 9-27 10-07 tablet by [facility] (Tylenol-Co 00:00: 23:59 mouth Medi cheryl deine #3) 00 :00 every 4 Center 300-30 mg (four) per tablet hours as needed for up to 10 days. Max Daily Amount: 6 tablets docusate 2021-0 2- No 100mg Q.5D Take 1 [facility] 9- [facility] ([facility]) 00:00: 23:59 (100 mg Medic al 100 MG 00 :00 total) by Center capsule mouth 2 (two) times daily for 10 days. acetaminoph 2021- No 1{tbl} Take [address] en-codeine 9- 10- tablet by [facility] (Tylenol-Co 00:00: 23:59 mouth Medi cheryl deine #3) 00 :00 every 4 Center 300-30 mg (four) per tablet hours as needed for up to 10 days. Max Daily Amount: 6 tablets docusate 2021-0 2021- No 100mg Q.5D Take 1 [facility] 9- 10-07 [facility] ([facility]) 00:00: 23:59 (100 [...] Q.5D Take 1 [facility] 9- 10-07 [facility] ([facility]) 00:00: 23:59 (100 mg Medic al 100 MG 00 :00 total) by Center capsule mouth 2 (two) times daily for 10 days. acetaminoph 2021- No 1{tbl} Take [address] en-codeine 9-27 10-07 tablet by [facility] (Tylenol-Co 00:00: 23:59 mouth Medi cheryl deine #3) 00 :00 every 4 Center 300-30 mg (four) per tablet hours as needed for up to 10 days. Max Daily Amount: 6 tablets docusate 2021-0 2022- No 100mg Q.5D Take 1 [facility] 9-27 10-07 [facility] ([facility]) 00:00: 23:59 (100 mg Medic al 100 MG 00 :00 total) by Center capsule mouth 2 (two) times daily for 10 days. acetaminoph 2021- No 1{tbl} Take [address] en-codeine 9-27 10-07 tablet by [facility] (Tylenol-Co 00:00: [...] Max Daily Amount: 6 tablets docusate 2021-0 2- No 100mg Q.5D Take 1 [facility] 9-27 10-07 [facility] ([facility]) 00:00: 23:59 (100 mg Medic al 100 MG 00 :00 total) by Center capsule mouth 2 (two) times daily for 10 days. acetaminoph 2021- No 1{tbl} Take [address] en-codeine 9-27 10-07 tablet by [facility] (Tylenol-Co 00:00: 23:59 mouth Medi cheryl deine #3) 00 :00 every 4 Center 300-30 mg (four) per tablet hours as needed for up to 10 days. Max Daily Amount: 6 tablets docusate 2021-0 2022- No 100mg Q.5D Take 1 [facility] 9- 10-07 [facility] ([facility]) 00:00: 23:59 (100 mg Medic al 100 MG 00 :00 total) by Center capsule mouth 2 (two) times daily for 10 days. acetaminoph 2021-0 2021- No 1{tbl} Take [address] en-codeine 9- 10- tablet by [facility] (Tylenol-Co 00:00: 23:59 mouth Medi cheryl deine #3) 00 :00 every 4 Center 300-30 mg (four) per tablet hours as needed for up to 10 days. Max Daily Amount: 6 tablets docusate 2021-0 2021- No 100mg Q.5D Take 1 [facility] 9- 10- [facility] ([facility]) 00:00: 23:59 (100 mg Medic al 100 MG 00 :00 total) by Center capsule mouth 2 (two) times daily for 10 days. acetaminoph 2021-0 2021- No 1{tbl} Take [address] en-codeine - 10- tablet by [facility] (Tylenol-Co 00:00: 23:59 mouth Medi cheryl deine #3) 00 :00 every 4 Center 300-30 mg (four) per tablet hours as needed for up to 10 days. Max Daily Amount: 6 tablets docusate 2021-0 2- No 100mg Q.5D Take 1 [facility] 9- 10-07 [facility] ([facility]) 00:00: 23:59 (100 mg Medic al 100 MG 00 :00 total) by Center capsule mouth 2 (two) times daily for 10 days. acetaminoph 2021-0 2021- No 1{tbl} Take [address] en-codeine 9- 10-07 tablet by [facility] (Tylenol-Co 00:00: 23:59 mouth Medi cheryl deine #3) 00 :00 every 4 Center 300-30 mg (four) per tablet hours as needed for up to 10 days. Max Daily Amount: 6 tablets docusate 2021-0 2022- No 100mg Q.5D Take 1 [facility] [...] days. Max Daily Amount: 6 tablets docusate 2021- No 100mg Q.5D Take 1 [...] Route: Herm shelton solution 00 INTRATHECA L, ONCALL, Dosing Weight 118.182, kg, 40ml = 80,000mcg, Start date: 11/14/21 15:00:00 CDT, Duration: 30 day, Stop date: 12/14/21 14:59:00 CDT ondansetron 2021- No 4mg 4 mg, Slow [facility] (ZOFRAN 08-25- IV Push, ity of (PF)) 14:15: 14:10 ONCE, 1 [place] injection 4 00 :00 dose, On Medi cheryl mg Abbie 08/25/21 Branch at 0915, LEW ondansetron 2021- Yes [id number] 4mg Take 1 [facility] 4 mg - tablet by ity of disintegrat 00:00: mouth [place] ing tablet 00 every 4 Medica l (four) Branch hours as needed for Nausea and Vomiting (N/V). ondansetron 0 Yes [id number] 4mg Take 1 [facility] 4 mg 08-25 tablet by ity of disintegrat 00:00: mouth [place] ing tablet 00 every 4 Medica l (four) Branch hours as needed for Nausea and Vomiting (N/V). methylpredn 0 Yes 60mg 60 mg, Univ ers isolone sod 08-22 Slow IV ity o f succ 14:00: Push, [place] (SOLU-MEDRO 00 DAILY, Medica l L) First dose Branch injection (after 60 mg last modificati on) on Sun08/22/21 at 0900, Until Discontinu ed, Routine hydrocortis 2021- No 10mg Take 10 mg Univers one 10 mg 08-22- by mouth ity o f tablet 12:11: 00:00 every [place] 03 :00 morning. Medical Branch methylPREDN 0 Yes [id number] Take by [facility] ISolone 4 -06 mouth ity of mg tablets 00:00: [place]-INSTRU [place] 00 CTIONS. Medical follow Branch package directions methylPREDN 2021-0 Yes [id number] Take by [facility] ISolone 4 - mouth ity of mg tablets 00:00: SEE-INSTRU [place] 00 CTIONS. Medical follow Branch package directions methylPREDN 2021-0 Yes [id number] Take by [facility] ISolone 4 - mouth ity of mg tablets 00:00: SEE-INSTRU [place] 00 CTIONS. Medical follow Branch package directions methylPREDN 2021-0 Yes [id number] Take by [facility] ISolone 4 - mouth ity of mg tablets 00:00: SEE-INSTRU [place] 00 CTIONS. Medical follow Branch package directions docusate 2021-0 Yes 100mg 100 mg, Unive rs (COLACE) 08-21 Oral, ity of capsule 100 21:15: DAILY, [place] mg 00 First dose Medical on [place] Branch 08/21/21 at 1615, Until Discontinu ed, Routine furosemide 2021-2021- No 40mg 40 mg, Univ ers (LASIX) 08-21 06-05 Slow IV ity of injection 21:15: 22:41 Push, [place] 40 mg 00 :00 ONCE, 1 Medical dose, On Branch [place] 08/21/21 at 1615, Routine sodium 2021- No 4mL 4 mL, Univers chloride 7% 08-21 0608 Inhalation i ty of (HYPER-OREN) 01:00: 00:59 [...] No 4mL 800 mg (4 Univers ine 08-1803 mL), ity of (MUCOMYST) 17:00: 04:24 Inhalation [place] 200 mg/mL 00 :00 , Q6H, 3 Medica l (20 %) doses, Branch solution First dose 800 mg on Abbie 08/18/21 at 1200, Last dose on Sun08/19/21 at 0000, Routine methylpredn 2021- No 60mg 60 mg, Uni vers isolone sod 08-18 0605 Slow IV ity of succ 15:15: 20:12 Push, [place] (SOLU-MEDRO 00 :49 Q12H, Medical L) First dose Branch injection on Abbie 60 mg 08/18/21 at 1015, Until Discontinu ed, Routine iopamidol 2021- No [id number] 80mL 80 mL, U nivers (ISOVUE 08-18 Intravenou ity o f 370-500 mL) 05:38: 05:38 s, ONCE, 1 [place] injection 00 :00 dose, On Medica l 80 mL Abbie 08/18/21 Branch at 0100, Routine ceFEPIme 2021- No 2000mg 2,000 mg, U nivers (MAXIPIME) 08-17 IV ity of 2,000 mg in 02:45: 20:05 [place], [place] NaCl 0.9% 00 :04 Q8H ABX, Medica l (NS) 50 mL First dose [facility] MINI-BAG on Sun08/16/21 at 2145, Until Discontinu ed, Administer over 240 Minutes, 50 mL
Reas on for Anti-Infec tive: Empiric Therapy for Suspected Infection< br>Empiric Therapy Site: Respirator y
Durat ion of therapy: 7 days ceFEPIme 2021- No 2000mg 2,000 mg, U nivers (MAXIPIME) 08-16 IV ity of 2,000 mg in 19:15: 22:36 [place], [place] NaCl 0.9% 00 :00 ONCE, 1 Medical (NS) 50 mL dose, On Branc h MINI-BAG Sun08/16/21 at 1415, Administer over 240 Minutes, 50 mL
Reas on for Anti-Infec tive: Empiric Therapy for Suspected Infection< br>Empiric Therapy Site: Respirator y
Durat ion of therapy: 7 days vancomycin 2021- No 15mg/kg 1,500 mg Univers 1500 mg in 08-16 (rounded ity of NS 500 mL 19:00: 21:27 from [place] IV 00 :56 1,837.5 mg Medical Piggyback [...] Hours, Branch Patch DAILY, First dose on 5/31/22 at 0900, Until Discontinu ed, Routine ipratropium 2021-0 Yes 3mL 3 mL, Unive rs -albuteroL 5-30 Inhalation ity of (DUONEB) 21:00: , QID, [place] 0.5 mg-3 00 First dose Medic al mg(2.5 mg on [facility] base)/3 mL 08/15/21 at nebulizer 1600, solution 3 Until mL Discontinu ed, Routine methocarbam 2021-0 Yes 500mg 500 mg, Un hunter oL 5-30 Oral, QID, ity of (ROBAXIN) 17:00: First dose [place] tablet 500 00 on [facility] mg 08/15/21 at Branch 1200, Until Discontinu ed, Routine morpHINE (2 2021-0 Yes 2mg 2 mg, Slow Univers mg/mL) 5-30 IV Push, ity of injection 2 16:54: Q4HPRN, [place] as mg 50 Starting Medical on [facility] 08/15/21 at 1154, Until Discontinu ed, Routine, Pain (scale 7-10) HYDROcodone 2021-0 Yes 1{tbl} 1 tablet, Univers -acetaminop 5-30 Oral, ity of hen (NORCO) 16:54: Q4HPRN, [place] as 10-325 mg 30 Starting Medica l tablet 1 on [facility] tablet 08/15/21 at 1154, Until Discontinu ed, Routine, Pain (scale 4-6) lisinopriL 2021-0 Yes 5mg 5 mg, Univer s (PRINIVIL,Z 5-29 Oral, ity of ESTRIL) 14:00: DAILY, [place] tablet 5 mg 00 First dose Me dical on [facility] 08/14/21 at 0900, Until Discontinu ed, Routine tamsulosin 2021-0 Yes .4mg 0.4 mg, Univ ers (FLOMAX) 5-29 Oral, ity of capsule 0.4 14:00: DAILY, [place] mg 00 First dose Medical on [facility] 08/14/21 at 0900, Until Discontinu ed, Routine SERTraline 2021-0 Yes 100mg 100 mg, Uni vers (ZOLOFT) 5-29 Oral, QAM, ity o f tablet 100 14:00: First dose [place] mg 00 on [facility] 08/14/21 at Branch 0900, Until Discontinu ed, Routine cefTRIAXone 0 No 1000mg 1,000 mg, Univers (ROCEPHIN) 08-14 05-31 IV ity of 1,000 mg in 13:30: 18:13 Piggyback, [place] NaCl 0.9% 00 :31 Q24H ABX, Medic al (NS) 50 mL First dose Bra kyh MINI-BAG on 08/14/21 at 0830, Until Discontinu ed, Administer over 30 Minutes, 50 mL
Reas on for Anti-Infec tive: Empiric Therapy for Suspected Infection< br>Empiric Therapy Site: Respirator y
Durat ion of therapy: 7 days QUEtiapine Yes 100mg 100 mg, Uni vers (SEROQUEL) 08-14 Oral, QHS, ity of tablet 100 02:00: First dose [place] mg 00 on [facility] 08/13/21 at Branch 2100, Until Discontinu ed, Routine atorvastati Yes 80mg 80 mg, Univ ers n (LIPITOR) 08-14 Oral, QHS, it y of tablet 80 02:00: First dose [place] mg 00 on [facility] 08/13/21 at Branch 2100, Until Discontinu ed, Routine levETIRAcet Yes 500mg 500 mg, Un hunter am (KEPPRA) 08-14 Oral, BID, it y of tablet 500 01:00: First dose [place] mg 00 on [facility] 08/13/21 at Branch 2000, Until Discontinu ed, Routine gabapentin Yes 400mg 400 mg, Uni vers (NEURONTIN) 08-14 Oral, TID, it y of capsule 400 01:00: First dose [place] mg 00 on [facility] 08/13/21 at Branch 2000, Until Discontinu ed, Routine Sliding 0 Yes Subcutaneo Univ ers Scale 08-13 us, TID ity of Insulin - 22:00: MEALS+HS, [place] as Lispro 00 First dose Medical (HumaLOG) + on [facility] 08/13/21 at Testing 1700, Until Discontinu [...] [place] 200 mg 14 Starting Medical on Sat Branch 08/13/21 at 1207, Until Discontinu ed, Routine, Cough azithromyci 2021- No 500mg 500 mg, IV Univers n 08-13 Piggyback, ity of (ZITHROMAX) 13:30: 17:45 Q24H ABX, [place] 500 mg in 00 :27 First dose Medi cheryl NaCl 0.9% (after Branch (NS) 250 mL last VIAL-MATE modificati IV on) on [facility] [[email or web address] piggyback 08/13/21 at 0830, Until Discontinu ed, Administer over 60 Minutes, 250 mL
Reas on for Anti-Infec tive: Documented Infection< br>Documen yanely Infection Site: Respirator y
Durat ion of Therapy: 7 days cefTRIAXone No 1000mg 1,000 mg, Univers (ROCEPHIN) 08-13 IV ity of 1,000 mg in 13:15: 12:48 Piggyback, [place] NaCl 0.9% 00 :00 ONCE, 1 Medical [...] of (ROBITUSSIN 12:45: 11:38 ONCE, 1 [place]) 10-100 00 :00 dose, On Medic [...] IV Push, ity of (PF)) 12:15: Q6HPRN, [place] injection 4 27 Starting Medi cheryl mg on [facility] [[email or web address] Branch 08/13/21 at 0715, Until Discontinu ed, Routine, Nausea and Vomiting (N/V) traMADoL 2021- No 50mg 50 mg, Univer s (ULTRAM) 08-1330 Oral, ity of tablet 50 12:15: 12:14 Q8HPRN, [place] mg 21 :21 Starting Medical on [facility] [[email or web address] Branch 08/13/21 at 0715, Until 08/15/21 at 0714, Routine, Pain (scale 4-6) acetaminoph Yes 650mg 650 mg, Un hunter en 08-13 Oral, ity of (TYLENOL) 12:15: Q6HPRNGibsonia, [place] tablet 650 19 Starting Medic al mg on [facility] [[email or web address]] Branch 08/13/21 at 0715, Until Discontinu ed, Routine, Pain (scale 1-3) lidocaine 2021- No [id number] 1{patch QD Apply 1 [place] (Lidoderm) -16 07 } patch Health 5 % patch [...] 1300, LEW 7.5 mg ibuprofen 2021-0 Yes [id number] 800mg Take 1 [facility] 800 mg 3-22 tablet by ity of tablet 00:00: mouth [place] 00 every 8 Medical (eight) Branch hours as needed for Pain (scale 4-6). ondansetron 2021-0 Yes [id number] 4mg Take 1 Univers 4 mg 3-22 tablet by ity of disintegrat 00:00: mouth [place] ing tablet 00 every 4 Medica l (four) Branch hours as needed for Nausea and Vomiting (N/V). ibuprofen 2021-0 Yes [id number] 800mg Take 1 [facility] 800 mg 3-22 tablet by ity of tablet 00:00: mouth [place] 00 every 8 Medical (eight) Branch hours as needed for Pain (scale 4-6). ondansetron 2021-0 Yes [id number] 4mg Take 1 Univers 4 mg 3-22 tablet by ity of disintegrat 00:00: mouth [place] ing tablet 00 every 4 Medica l (four) Branch hours as needed for Nausea and Vomiting (N/V). ibuprofen 2022-0 Yes [id number] 800mg Take 1 [facility] 800 mg 3-22 tablet by ity of tablet 00:00: mouth [place] 00 every 8 Medical (eight) Branch hours as needed for Pain (scale 4-6). ondansetron 2022-0 Yes [id number] 4mg Take 1 Univers 4 mg 3-22 tablet by ity of disintegrat 00:00: mouth [place] ing tablet 00 every 4 Medica l (four) Branch hours as needed for Nausea and Vomiting (N/V). ibuprofen 2022-0 Yes [id number] 800mg Take 1 Univers 800 mg 3-22 tablet by ity of tablet 00:00: mouth [place] 00 every 8 Medical (eight) Branch hours as needed for Pain (scale 4-6). ondansetron 2022-0 Yes [id number] 4mg Take 1 Univers 4 mg 3-22 tablet by ity of disintegrat 00:00: mouth [place] ing tablet 00 every 4 Medica l (four) Branch hours as needed for Nausea and Vomiting (N/V). ibuprofen 2022-0 Yes [id number] 800mg Take 1 [facility] 800 mg 3-22 tablet by ity of tablet 00:00: mouth [place] 00 every 8 Medical (eight) Branch hours as needed for Pain (scale 4-6). ondansetron 2022-0 Yes [id number] 4mg Take 1 Univers 4 mg 3-22 tablet by ity of disintegrat 00:00: mouth [place] ing tablet 00 every 4 Medica l (four) Branch hours as needed for Nausea and Vomiting (N/V). ibuprofen 2022-0 Yes [id number] 800mg Take 1 Univers 800 mg 3-22 tablet by ity of tablet 00:00: mouth [place] 00 every 8 Medical (eight) Branch hours as needed for Pain (scale 4-6). ondansetron 2022-0 Yes [id number] 4mg Take 1 Univers 4 mg 3-22 tablet by ity of disintegrat 00:00: mouth [place] ing tablet 00 every 4 Medica l (four) Branch hours as needed for Nausea and Vomiting (N/V). ibuprofen 2022-0 Yes [id number] 800mg Take 1 [facility] 800 mg 3-22 tablet by ity of tablet 00:00: mouth [place] 00 every 8 Medical (eight) Branch hours as needed for Pain (scale 4-6). ondansetron Yes [id number] 4mg Take 1 Univers 4 mg 3-22 tablet by ity of disintegrat 00:00: mouth [place] ing tablet 00 every 4 Medica l (four) Branch hours as needed for Nausea and Vomiting (N/V). ibuprofen Yes [id number] 800mg Take 1 [facility] 800 mg 3-22 tablet by ity of tablet 00:00: mouth [place] 00 every 8 Medical (eight) Branch hours as needed for Pain (scale 4-6). ondansetron Yes [id number] 4mg Take 1 Univers 4 mg 3-22 [...] 21:00: Route: Herm shelton solution 00 INTRATHECA L, ONCALL, Dosing Weight 118.182, kg, 40ml = 80,000mcg, Start date: 03/16/21 15:00:00 PEDIATRIC CRITICAL CARE NURSE, Duration: 30 day, Stop date: 04/15/21 14:59:00 PEDIATRIC CRITICAL CARE NURSE Baclofen 1 No 40,000 Memor ia MG/ML 8-31 microgram, l Injectable 18:00: Route: Chiquita nn Solution 00 INTRATHECA L, RONYTIFFANIE, Dosing Weight 118.182, kg, 40ml = 40,000mcg, Start date: 11/16/20 13:00:00 CDT, Duration: 30 day, Stop date: 12/16/20 12:59:00 CDT sertraline Yes 50 mg = 1 Me moria 50 mg oral 8-10 tab, PO, l tablet 15:50: BID, # 30 Mauricio n 00 tab, 0 Refill(s) montelukast 2020-0 Yes Daily, 0 Me moria 6-14 Refill(s) l 19:25: Otis 00 3 ML 2020-0 Yes 1 mg, Memoria semaglutide 6-14 SUB-Q, l 1.34 MG/ML 19:25: qWeek, 0 Her adams Pen 00 Refill(s) Injector [Ozempic] Botulinum 2019- No 600 unit, Mem oria Toxin Type 2-29 Route: IM, l A 22:00: Demar CHAPIN 00 Dosing Weight 125, kg, Start date: 03/16/20 16:00:00 PEDIATRIC CRITICAL CARE NURSE, Duration: 30 day, Stop date: 04/15/20 15:59:00 PEDIATRIC CRITICAL CARE NURSE Ozempic (1 Ozempic (2019-03 No Ozempic (1 MG/DOSE) 2 MG/DOSE) 2 [...] Ketoconazo e 2 % e 2 % 05-10-13 le 2 % 00:00: 00:00 00 :00 Ketoconazol Ketoconazol 2019-03- No 5{ml} BID Ketoconazo e 2 % e 2 % 05-10-13 le 2 % 00:00: 00:00 00 :00 Ketoconazol Ketoconazol 2019-03- No 5{ml} BID Ketoconazo e 2 % e 2 % 05-10-13 le 2 % 00:00: 00:00 00 :00 [...] Type 9-30 Route: IM, l A 18:00: Demar CHAPIN Dosing Weight 125, kg, Start date: 12/17/19 13:00:00 CDT, Duration: 30 day, Stop date: 01/16/20 12:59:00 CDT Botulinum 2020-0 No 600 unit, Mem oria Toxin Type 6-30 Route: IM, l A 20:00: Demar CHAPIN Dosing Weight 125, kg, Start date: 09/16/19 15:00:00 CDT, Duration: 30 day, Stop date: 10/16/19 14:59:00 CDT baclofen 2 2019-0 Yes 475.5 Memori a mg/mL 6-09 mcg/day, l intrathecal 21:24: INTRATHECA [place] solution 00 L, Continuous , simple, 0 Refill(s) Vitamin D2 Yes 50,000 Memor ia 50,000 intl 6-09 IntlUnit = l units oral 14:44: 1 cap, PO, H ermann capsule 00 Q30D, # 24 cap, 0 Refill(s) Metformin 2019- Yes 1,000 mg, Mem oria 6-09 PO, Daily, l 14:41: 0 Otis 00 Refill(s) gabapentin Yes 300 mg = 1 M emoria 300 MG Oral 6-09 cap, PO, l Capsule 14:41: TID, # 90 Chiquita nn 00 cap, 1 Refill(s) neomycin-po 2020- No [id number] 3[drp] Place 3 Univers lymyxin-hyd 4-03 04-09 Drops in ity of rocortisone 00:00: 04:59 left ear 4 [place] otic 00 :00 (four) Medical [facility] daily for 5 days. levoFLOXaci 2020- No [id number] 750mg Take 1 Univers n 750 mg 3-15 03-21 tablet by ity o f tablet 00:00: 04:59 mouth [place] 00 :00 every 24 Medical ([facility]) hours for 5 days. levoFLOXaci 2020- No [id number] 750mg Take 1 Univers n 750 mg 3-15 03-21 tablet by ity o f tablet 00:00: 04:59 mouth [place] 00 :00 every 24 Medical ([facility]) hours for 5 days. levoFLOXaci 2020- No [id number] 750mg Take 1 Univers n 750 mg 3-15 03-21 tablet by ity o f tablet 00:00: 04:59 mouth [place] 00 :00 every 24 Medical ([facility]) hours for 5 days. levoFLOXaci 2020- No [id number] 750mg Take 1 Univers n 750 mg 3-15 03-21 tablet by ity o f tablet 00:00: 04:59 mouth [place] 00 :00 every 24 Medical ([facility]) hours for 5 days. pioglitazon Yes [id number] 30mg Take 1 Univers e 30 mg 3-13 tablet by ity of tablet 00:00: mouth [place] 00 daily. Medical Branch pioglitazon 2020-0 Yes [id number] 30mg Take 1 Univers e 30 mg 3-13 tablet by ity of tablet 00:00: mouth [place] 00 daily. [facility] Branch pioglitazon 2020-0 Yes [id number] 30mg Take 1 Univers e 30 mg 3-13 tablet by ity of tablet 00:00: mouth [place] 00 daily. [facility] Branch pioglitazon 2019-0 Yes [id number] 30mg Take 1 Univers e 30 mg 3-13 tablet by ity of tablet 00:00: mouth [place] 00 daily. [facility] Branch pioglitazon 2020-0 Yes [id number] 30mg Take 1 Univers e 30 mg 3-13 tablet by ity of tablet 00:00: mouth [place] 00 daily. [facility] Branch pioglitazon 2019-0 Yes [id number] 30mg Take 1 Univers e 30 mg 3-13 tablet by ity of tablet 00:00: mouth [place] 00 daily. [facility] Branch pioglitazon 2019-0 Yes [id number] 30mg Take 1 Univers e 30 mg 3-13 tablet by ity of tablet 00:00: mouth [place] 00 daily. [facility] Branch pioglitazon 2019-0 Yes [id number] 30mg Take 1 Univers e 30 mg 3-13 tablet by ity of tablet 00:00: mouth [place] 00 daily. [facility] Branch pioglitazon 2019-0 Yes [id number] 30mg Take 1 Univers e 30 mg 3-13 tablet by ity of tablet 00:00: mouth [place] 00 daily. [facility] Branch pioglitazon 2020-0 Yes [id number] 30mg Take 1 Univers e 30 mg 3-13 tablet by ity of tablet 00:00: mouth [place] 00 daily. [facility] Branch pioglitazon 2020-0 Yes [id number] 30mg Take 1 Univers e 30 mg 3-13 tablet by ity of tablet 00:00: mouth [place] 00 daily. [facility] Branch pioglitazon 2020-0 Yes [id number] 30mg Take 1 Univers e 30 mg 3-13 tablet by ity of tablet 00:00: mouth [place] 00 daily. [facility] Branch pioglitazon 2020-0 Yes [id number] 30mg Take 1 Univers e 30 mg 3-13 tablet by ity of tablet 00:00: mouth [place] 00 daily. Medical Branch pioglitazon 2020-0 Yes [id number] 30mg Take 1 Univers e 30 mg 3-13 tablet by ity of tablet 00:00: mouth [place] 00 daily. Medical Branch pioglitazon 2020-0 Yes [id number] 30mg Take 1 Univers e 30 mg 3-13 tablet by ity of tablet 00:00: mouth [place] 00 daily. Medical Branch pioglitazon 2020-0 Yes [id number] 30mg Take 1 Univers e 30 mg 3-13 tablet by ity of tablet 00:00: mouth [place] 00 daily. Medical Branch pioglitazon 2020-0 Yes [id number] 30mg Take 1 Univers e 30 mg 3-13 tablet by ity of tablet 00:00: mouth [place] 00 daily. Medical Branch pioglitazon 2020-0 Yes [id number] 30mg Take 1 Univers e 30 mg 3-13 tablet by ity of tablet 00:00: mouth [place] 00 daily. Medical Branch pioglitazon 2019-0 Yes [id number] 30mg Take 1 Univers e 30 mg 3-13 tablet by ity of tablet 00:00: mouth [place] 00 daily. Medical Branch pioglitazon 2019-0 Yes [id number] 30mg Take 1 Univers e 30 mg 3-13 tablet by ity of tablet 00:00: mouth [place] 00 daily. Medical Branch pioglitazon 2020-0 Yes [id number] 30mg Take 1 Univers e 30 mg 3-13 tablet by ity of tablet 00:00: mouth [place] 00 daily. Medical Branch pioglitazon 2020-0 Yes [id number] 30mg Take 1 Univers e 30 mg 3-13 tablet by ity of tablet 00:00: mouth [place] 00 daily. Medical Branch pioglitazon 2020-0 Yes [id number] 30mg Take 1 Univers e 30 mg 3-13 tablet by ity of tablet 00:00: mouth [place] 00 daily. Medical Branch pioglitazon 2020-0 Yes [id number] 30mg Take 1 Univers e 30 mg 3-13 tablet by ity of tablet 00:00: mouth [place] 00 daily. Medical Branch pioglitazon 2020-0 Yes [id number] 30mg Take 1 Univers e 30 mg 3-13 tablet by [facility] of tablet 00:00: mouth [place] 00 daily. [facility] pioglitazon 2020-0 Yes [id number] 30mg Take 1 [facility] e 30 mg 3-13 tablet by [facility] of tablet 00:00: mouth [place] 00 daily. [facility] pioglitazon 2020-0 Yes [id number] 30mg Take 1 [facility] e 30 mg 3-13 tablet by [facility] of tablet 00:00: mouth [place] 00 daily. [facility] pioglitazon 2020-0 Yes [id number] 30mg Take 1 [facility] e 30 mg 3-13 tablet by [facility]y of tablet 00:00: mouth [place] 00 daily. [facility] pioglitazon 2020-0 Yes [id number] 30mg Take 1 [facility] e 30 mg 3-13 tablet by [facility]y of tablet 00:00: mouth [place] 00 daily. [facility] lisinopril 2020-0 Yes [id number] 5mg Take 1 [facility] nivers 5 mg tablet 3-11 tablet by ity of 00:00: mouth [place] 00 daily. [facility] lisinopril 2020-0 Yes [id number] 5mg Take 1 [facility] nivers 5 mg tablet 3-11 tablet by ity of 00:00: mouth [place] 00 daily. [facility] lisinopril 2020-0 Yes [id number] 5mg Take 1 [facility] nivers 5 mg tablet 3-11 tablet by ity of 00:00: mouth [place] 00 daily. [facility] lisinopril 2020-0 Yes [id number] 5mg Take 1 [facility] nivers 5 mg tablet 3-11 tablet by ity of 00:00: mouth [place] 00 daily. [facility] lisinopril 2020-0 Yes [id number] 5mg Take 1 [facility] nivers 5 mg tablet 3-11 tablet by ity of 00:00: mouth [place] 00 daily. [facility] lisinopril 2020-0 Yes [id number] 5mg Take 1 [facility] nivers 5 mg tablet 3-11 tablet by ity of 00:00: mouth [place] 00 daily. [facility] lisinopril 2020-0 Yes [id number] 5mg Take 1 [facility] nivers 5 mg tablet 3-11 tablet by ity of 00:00: mouth [place] 00 daily. [facility] lisinopril 2020-0 Yes [id number] 5mg Take 1 [facility] nivers 5 mg tablet 3-11 tablet by ity of 00:00: mouth [place] 00 daily. [facility] lisinopril 2020-0 Yes [id number] 5mg Take 1 [facility] nivers 5 mg tablet 3-11 tablet by ity of 00:00: mouth [place] 00 daily. [facility] lisinopril 2020-0 Yes [id number] 5mg Take 1 [facility] nivers 5 mg tablet 3-11 tablet by ity of 00:00: mouth [place] 00 daily. [facility] lisinopril 2020-0 Yes [id number] 5mg Take 1 [facility] nivers 5 mg tablet 3-11 tablet by ity of 00:00: mouth [place] 00 daily. [facility] lisinopril 2020-0 Yes [id number] 5mg Take 1 [facility] nivers 5 mg tablet 3-11 tablet by ity of 00:00: mouth [place] 00 daily. [facility] lisinopril 2020-0 Yes [id number] 5mg Take 1 [facility] nivers 5 mg tablet 3-11 tablet by ity of 00:00: mouth [place] 00 daily. [facility] lisinopril 2020-0 Yes [id number] 5mg Take 1 [facility] nivers 5 mg tablet 3-11 tablet by ity of 00:00: mouth [place] 00 daily. [facility] lisinopril 2020-0 Yes [id number] 5mg Take 1 [facility] nivers 5 mg tablet 3-11 tablet by ity of 00:00: mouth [place] 00 daily. [facility] lisinopril 2020-0 Yes [id number] 5mg Take 1 [facility] nivers 5 mg tablet 3-11 tablet by ity of 00:00: mouth [place] 00 daily. [facility] lisinopril 2020-0 Yes [id number] 5mg Take 1 [facility] nivers 5 mg tablet 3-11 tablet by ity of 00:00: mouth [place] 00 daily. [facility] lisinopril 2020-0 Yes [id number] 5mg Take 1 [facility] nivers 5 mg tablet 3-11 tablet by ity of 00:00: mouth [place] 00 daily. [facility] lisinopril 2020-0 Yes [id number] 5mg Take 1 [facility] nivers 5 mg tablet 3-11 tablet by ity of 00:00: mouth [place] 00 daily. [facility] lisinopril 2020-0 Yes [id number] 5mg Take 1 [facility] nivers 5 mg tablet 3-11 tablet by ity of 00:00: mouth [place] 00 daily. [facility] lisinopril 2020-0 Yes [id number] 5mg Take 1 [facility] nivers 5 mg tablet 3-11 tablet by ity of 00:00: mouth [place] 00 daily. [facility] lisinopril 2020-0 Yes [id number] 5mg Take 1 [facility] nivers 5 mg tablet 3-11 tablet by ity of 00:00: mouth [place] 00 daily. [facility] lisinopril 2020-0 Yes [id number] 5mg Take 1 [facility] nivers 5 mg tablet 3-11 tablet by ity of 00:00: mouth [place] 00 daily. [facility] lisinopril 2020-0 Yes [id number] 5mg Take 1 [facility] nivers 5 mg tablet 3-11 tablet by ity of 00:00: mouth [place] 00 daily. [facility] lisinopril 2020-0 Yes [id number] 5mg Take 1 [facility] nivers 5 mg tablet 3-11 tablet by ity of 00:00: mouth [place] 00 daily. [facility] lisinopril 2020-0 Yes [id number] 5mg Take 1 [facility] nivers 5 mg tablet 3-11 tablet by ity of 00:00: mouth [place] 00 daily. [facility] lisinopril 2020-0 Yes [id number] 5mg Take 1 [facility] nivers 5 mg tablet 3-11 tablet by ity of 00:00: mouth [place] 00 daily. [facility] lisinopril 2020-0 Yes [id number] 5mg Take 1 [facility] nivers 5 mg tablet 3-11 tablet by ity of 00:00: mouth [place] 00 daily. [facility] lisinopril 2020-0 Yes [id number] 5mg Take 1 [facility] nivers 5 mg tablet 3-11 tablet by ity of 00:00: mouth [place] 00 daily. [facility] lisinopril 2020-0 Yes [id number] 5mg Take 1 [facility] nivers 5 mg tablet 3-11 tablet by ity of 00:00: mouth [place] 00 daily. [facility] lisinopril 2020-0 Yes [id number] 5mg Take 1 [facility] nivers 5 mg tablet 3-11 tablet by ity of 00:00: mouth [place] 00 daily. [facility] lisinopril 2020-0 Yes [id number] 5mg Take 1 [facility] nivers 5 mg tablet 3-11 tablet by ity of 00:00: mouth [place] 00 daily. [facility] lisinopril 2020-0 Yes [id number] 5mg Take 1 [facility] nivers 5 mg tablet 3-11 tablet by ity of 00:00: mouth [place] 00 daily. [facility] lisinopril 2020-0 Yes [id number] 5mg Take 1 [facility] nivers 5 mg tablet 3-11 tablet by ity of 00:00: mouth [place] 00 daily. [facility] lisinopril 2020-0 Yes [id number] 5mg Take 1 [facility] nivers 5 mg tablet 3-11 tablet by ity of 00:00: mouth [place] 00 daily. [facility] lisinopril 2020-0 Yes [id number] 5mg Take 1 [facility] nivers 5 mg tablet 3-11 tablet by ity of 00:00: mouth [place] 00 daily. [facility] metFORMIN 2020-0 2020- No 500mg Take 500 [facility] [place] 500 mg 3-05 03-05 mg by ity of tablet 21:37: 00:00 mouth 2 [place] 52 :00 (two) Medical times Branch daily with meals. metFORMIN 2020-0 2020- No 500mg Take 500 [facility] [place] 500 mg 3-05 03-05 mg by ity of tablet 21:37: 00:00 mouth 2 [place] 52 :00 (two) Medical times Branch daily with meals. hydrocortis 2020-0 Yes 10mg Take 10 mg [facility] one 10 mg 3-05 by mouth ity of tablet 20:28: every [place] 24 morning. [facility] Branch hydrocortis 2020-0 Yes 10mg Take 10 mg [facility] one 10 mg 3-05 by mouth ity of tablet 20:28: every [place] 24 morning. [facility] hydrocortis 2020-0 Yes 10mg Take 10 mg [facility] one 10 mg 3-05 by mouth ity of tablet 20:28: every [place] 24 morning. [facility] hydrocortis 2020-0 Yes 10mg Take 10 mg [facility] one 10 mg 3-05 by mouth ity of tablet 20:28: every [place] 24 morning. [facility] hydrocortis 2020-0 Yes [...] by mouth ity of tablet 14:28: every [place] 24 morning. [facility] hydrocortis 2020-0 Yes 10mg Take 10 mg [facility] one 10 mg 3-05 by mouth ity of tablet 14:28: every [place] 24 morning. [facility] hydrocortis 2020-0 Yes 10mg Take 10 mg [facility] one 10 mg 3-05 by mouth ity of tablet 14:28: every [place] 24 morning. [facility] hydrocortis 2020-0 Yes 10mg Take 10 mg [facility] one 10 mg 3-05 by mouth ity of tablet 14:28: every [place] 24 morning. [facility] Branch metFORMIN 2020-0 Yes [id number] 1000mg Take 1 [facility] 1,000 mg 3-05 tablet by ity of tablet 00:00: mouth [place] (two) Medical times Branch daily with meals. metFORMIN 2020-0 Yes [id number] 1000mg Take 1 [facility] 1,000 mg 3-05 tablet by [facility] of tablet 00:00: mouth [place] (two) Medical times Branch daily with meals. metFORMIN 2020-0 Yes [id number] 1000mg Take 1 [facility] 1,000 mg 3-05 tablet by it[facility] of tablet 00:00: mouth [place] (two) Medical times Branch daily with meals. metFORMIN 2020-0 Yes [id number] 1000mg Take 1 [facility] 1,000 mg 3-05 tablet by it[facility] of tablet 00:00: mouth [place] (two) Medical times Branch daily with meals. metFORMIN 2020-0 Yes [id number] 1000mg Take 1 [facility] 1,000 mg 3-05 tablet by ity of tablet 00:00: mouth [place] (two) Medical times Branch daily with meals. metFORMIN 2020-0 Yes [id number] 1000mg Take 1 [facility] 1,000 mg 3-05 tablet by ity of tablet 00:00: mouth [place] (two) Medical times Branch daily with meals. metFORMIN 2020-0 Yes [id number] 1000mg Take 1 [facility] 1,000 mg 3-05 tablet by [facility] of tablet 00:00: mouth [place] (two) Medical times Branch daily with meals. metFORMIN 2020-0 Yes [id number] 1000mg Take 1 [facility] 1,000 mg 3-05 tablet by ity of tablet 00:00: mouth (two) Medical times Branch daily with meals. metFORMIN 2020-0 Yes [id number] 1000mg Take 1 [facility] 1,000 mg 3-05 tablet by [facility] of tablet 00:00: mouth (two) Medical times Branch daily with meals. metFORMIN 2020-0 Yes [id number] 1000mg Take 1 [facility] 1,000 mg 3-05 tablet by [facility] of tablet 00:00: mouth (two) Medical times Branch daily with meals. metFORMIN 2020-0 Yes [id number] 1000mg Take 1 [facility] 1,000 mg 3-05 tablet by ity of tablet 00:00: mouth (two) Medical times Branch daily with meals. metFORMIN 2020-0 Yes [id number] 1000mg Take 1 [facility] 1,000 mg 3-05 tablet by ity of tablet 00:00: mouth (two) Medical times Branch daily with meals. metFORMIN 2020-0 Yes [id number] 1000mg Take 1 [facility] 1,000 mg 3-05 tablet by [facility]y of tablet 00:00: mouth (two) Medical times Branch daily with meals. metFORMIN 2020-0 Yes [id number] 1000mg Take 1 [facility] 1,000 mg 3-05 tablet by [facility] of tablet 00:00: mouth (two) Medical times Branch daily with meals. metFORMIN 2020-0 Yes [id number] 1000mg Take 1 [facility] 1,000 mg 3-05 tablet by [facility] of tablet 00:00: mouth (two) Medical times Branch daily with meals. metFORMIN 2020-0 Yes [id number] 1000mg Take 1 [facility] 1,000 mg 3-05 tablet by ity of tablet 00:00: mouth (two) Medical times Branch daily with meals. metFORMIN 2020-0 Yes [id number] 1000mg Take 1 [facility] 1,000 mg 3-05 tablet by [facility] of tablet 00:00: mouth (two) Medical times Branch daily with meals. pioglitazon 2020-0 Yes [id number] 15mg Take 1 [facility] e 15 mg 3-05 tablet by [facility] of tablet 00:00: mouth (two) Medical times Branch daily. metFORMIN 2020-0 Yes [id number] 1000mg Take 1 [facility] 1,000 mg 3-05 tablet by ity of tablet 00:00: mouth (two) Medical times Branch daily with meals. pioglitazon 2020-0 Yes [id number] 15mg Take 1 [facility] e 15 mg 3-05 tablet by ity of tablet 00:00: mouth (two) Medical times Branch daily. metFORMIN 2020-0 Yes [id number] 1000mg Take 1 [facility] 1,000 mg 3-05 tablet by ity of tablet 00:00: mouth (two) Medical times Branch daily with meals. pioglitazon 2020-0 Yes [id number] 15mg Take 1 [facility] e 15 mg 3-05 tablet by ity of tablet 00:00: mouth (two) Medical times Branch daily. metFORMIN 2020-0 Yes [id number] 1000mg Take 1 [facility] 1,000 mg 3-05 tablet by ity of tablet 00:00: mouth (two) Medical times Branch daily with meals. pioglitazon 2020-0 Yes [id number] 15mg Take 1 [facility] e 15 mg 3-05 tablet by ity of tablet 00:00: mouth (two) Medical times Branch daily. metFORMIN 2020-0 Yes [id number] 1000mg Take 1 [facility] 1,000 mg 3-05 tablet by ity of tablet 00:00: mouth (two) Medical times Branch daily with meals. pioglitazon 2020-0 Yes [id number] 15mg Take 1 [facility] e 15 mg 3-05 tablet by ity of tablet 00:00: mouth (two) Medical times Branch daily. metFORMIN 2020-0 Yes [id number] 1000mg Take 1 [facility] 1,000 mg 3-05 tablet by ity of tablet 00:00: mouth (two) Medical times Branch daily with meals. pioglitazon 2020-0 Yes [id number] 15mg Take 1 [facility] e 15 mg 3-05 tablet by ity of tablet 00:00: mouth (two) Medical times Branch daily. metFORMIN 2020-0 Yes [id number] 1000mg Take 1 [facility] 1,000 mg 3-05 tablet by ity of tablet 00:00: mouth (two) Medical times Branch daily with meals. pioglitazon 2020-0 Yes [id number] 15mg Take 1 [facility] e 15 mg 3-05 tablet by ity of tablet 00:00: mouth (two) Medical times Branch daily. metFORMIN 2020-0 Yes [id number] 1000mg Take 1 [facility] 1,000 mg 3-05 tablet by ity of tablet 00:00: mouth (two) Medical times Branch daily with meals. pioglitazon 2020-0 Yes [id number] 15mg Take 1 [facility] e 15 mg 3-05 tablet by ity of tablet 00:00: mouth (two) Medical times Branch daily. metFORMIN 2020-0 Yes [id number] 1000mg Take 1 [facility] 1,000 mg 3-05 tablet by ity of tablet 00:00: mouth (two) Medical times Branch daily with meals. pioglitazon 2020-0 Yes [id number] 15mg Take 1 [facility] e 15 mg 3-05 tablet by ity of tablet 00:00: mouth (two) Medical times Branch daily. metFORMIN 2020-0 Yes [id number] 1000mg Take 1 [facility] 1,000 mg 3-05 tablet by ity of tablet 00:00: mouth (two) Medical times Branch daily with meals. pioglitazon 2020-0 Yes [id number] 15mg Take 1 [facility] e 15 mg 3-05 tablet by ity of tablet 00:00: mouth (two) Medical times Branch daily. metFORMIN 2020-0 Yes [id number] 1000mg Take 1 [facility] 1,000 mg 3-05 tablet by ity of tablet 00:00: mouth (two) Medical times Branch daily with meals. pioglitazon 2020-0 Yes [id number] 15mg Take 1 [facility] e 15 mg 3-05 tablet by ity of tablet 00:00: mouth (two) Medical times Branch daily. metFORMIN 2020-0 Yes [id number] 1000mg Take 1 [facility] 1,000 mg 3-05 tablet by ity of tablet 00:00: mouth (two) Medical times Branch daily with meals. pioglitazon 2020-0 Yes [id number] 15mg Take 1 [facility] e 15 mg 3-05 tablet by ity of tablet 00:00: mouth (two) Medical times Branch daily. metFORMIN 2020-0 Yes [id number] 1000mg Take 1 [facility] 1,000 mg 3-05 tablet by ity of tablet 00:00: mouth (two) Medical times Branch daily with meals. metFORMIN 2020-0 Yes [id number] 1000mg Take 1 [facility] 1,000 mg 3-05 tablet by ity of tablet 00:00: mouth (two) Medical times Branch daily with meals. metFORMIN 2020-0 Yes [id number] 1000mg Take 1 [facility] 1,000 mg 3-05 tablet by ity of tablet 00:00: mouth (two) Medical times Branch daily with meals. metFORMIN 2020-0 Yes [id number] 1000mg Take 1 [facility] 1,000 mg 3-05 tablet by ity of tablet 00:00: mouth (two) Medical times Branch daily with meals. metFORMIN 2020-0 Yes [id number] 1000mg Take 1 [facility] 1,000 mg 3-05 tablet by ity of tablet 00:00: mouth (two) Medical times Branch daily with meals. metFORMIN 2020-0 Yes [id number] 1000mg Take 1 [facility] 1,000 mg 3-05 tablet by ity of tablet 00:00: mouth (two) Medical times Branch daily with meals. metFORMIN 2020-0 Yes [id number] 1000mg Take 1 [facility] 1,000 mg 3-05 tablet by ity of tablet 00:00: mouth (two) Medical times Branch daily with meals. metFORMIN 2020-0 Yes [id number] 1000mg Take 1 [facility] 1,000 mg 3-05 tablet by ity of tablet 00:00: mouth (two) Medical times Branch daily with meals. metFORMIN 2020-0 Yes [id number] 1000mg Take 1 [facility] 1,000 mg 3-05 tablet by ity of tablet 00:00: mouth (two) Medical times Branch daily with meals. metFORMIN 2020-0 Yes [id number] 1000mg Take 1 [facility] 1,000 mg 3-05 tablet by ity of tablet 00:00: mouth (two) Medical times Branch daily with meals. metFORMIN 2020-0 Yes [id number] 1000mg Take 1 [facility] 1,000 mg 3-05 tablet by ity of tablet 00:00: mouth (two) Medical times Branch daily with meals. metFORMIN 2020-0 Yes [id number] 1000mg Take 1 [facility] 1,000 mg 3-05 tablet by ity of tablet 00:00: mouth (two) Medical times Branch daily with meals. metFORMIN 2020-0 Yes [id number] 1000mg Take 1 [facility] 1,000 mg 3-05 tablet by ity of tablet 00:00: mouth [address] [place] [address] 00 (two) Medical times Branch daily with meals. metFORMIN 2020-0 Yes [id number] 1000mg Take 1 [facility] 1,000 mg 3-05 tablet by ity of tablet 00:00: mouth [address] [place] [address] (two) Medical times Branch daily with meals. metFORMIN 2020-0 Yes [id number] 1000mg Take 1 [facility] 1,000 mg 3-05 tablet by ity of tablet 00:00: mouth [address] [place] [address] (two) Medical times Branch daily with meals. pioglitazon 2020-0 2020- No [id number] 15mg Take 1 [facility] e 15 mg 3-05 03-13 tablet by ity of tablet 00:00: 00:[address] [place] [address] 00 :00 (two) Medical times Branch daily. metFORMIN 2020-0 Yes 500mg Take 500 [facility] vers 500 mg 1-29 mg by ity of tablet 20:33: mouth [address] [place] [address] ([facility]) Medical times Branch daily with meals. metFORMIN 2020-0 Yes 500mg Take 500 [facility] vers 500 mg 1-29 mg by ity of tablet 20:33: mouth [address] [place] [address] ([facility]) Medical times Branch daily with meals. metFORMIN 2020-0 Yes 500mg Take 500 [facility] vers 500 mg 1-29 mg by ity of tablet 20:33: mouth [address] [place] [address] ([facility]) Medical times Branch daily with meals. metFORMIN 2020-0 Yes 500mg Take 500 [facility] vers 500 mg 1-29 mg by ity of tablet 20:33: mouth [address] [place] [address] ([facility]) Medical times Branch daily with meals. metFORMIN 2020-0 Yes 500mg Take 500 [facility] vers 500 mg 1-29 mg by ity of tablet 20:33: mouth [address] [place] [address] ([facility]) Medical times Branch daily with meals. metFORMIN 2020-0 Yes 500mg Take 500 [facility] vers 500 mg 1-29 mg by ity of tablet 20:33: mouth [address] [place] [address] ([facility]) Medical times Branch daily with meals. metFORMIN 2020-0 Yes 500mg Take 500 [facility] vers 500 mg 1-29 mg by ity of tablet 20:33: mouth [address] [place] [address] ([facility]) Medical times Branch daily with meals. metFORMIN 2020-0 Yes 500mg Take 500 [facility] vers 500 mg 1-29 mg by ity of tablet 20:33: mouth 2 [place] 19 (two) Medical times Branch daily with meals. metFORMIN 2020-0 Yes 500mg Take 500 [facility] vers 500 mg 1-29 mg by ity of tablet 20:33: mouth 2 [place] 19 (two) Medical times Branch daily with meals. metFORMIN 2020-0 Yes 500mg Take 500 [facility] vers 500 mg 1-29 mg by ity of tablet 20:33: mouth 2 [place] 19 (two) Medical times Branch daily with [...] ity of tablet 17:55: 00:00 mouth at [place] 00 :00 bedtime. Medical Branch tamsulosin 2019-0 2020- No .4mg Take 0.4 Un hunter 0.4 mg 24 1-14 01-14 mg by ity of hr capsule 17:55: 00:00 mouth [place] 00 :00 daily. Medical Branch QUEtiapine 2019-0 2020- No 100mg Take 100 U nivers 100 mg 1-14 01-14 mg by ity of tablet 17:55: 00:00 mouth at [place] 00 :00 bedtime. Medical Branch levETIRAcet 2019-0 Yes [id number] 500mg Take 1 [facility] am 500 mg 1-14 tablet by ity o f tablet 00:00: mouth 2 [place] 00 (two) Medical times Branch daily. atorvastati 2019-0 Yes [id number] 80mg Take 1 [facility] n 80 mg 1-14 tablet by ity of tablet 00:00: mouth at [place] 00 bedtime. Medical Branch blood sugar 2019-0 Yes [id number] Use BID, [facility] diagnostic 1-14 DX E11.9 ity o f (BLOOD 00:00: (Brand [place] GLUCOSE 00 upon Medical TEST) strip insurance [facility] approval) gabapentin 2020-0 Yes [id number] 400mg Take 1 [facility] 400 mg 1-14 capsule by ity of capsule 00:00: mouth 3 [place] 00 (three) Medical times Branch daily. QUEtiapine 2020-0 Yes [id number] 100mg Take 1 [facility] 100 mg 1-14 tablet by ity of tablet 00:00: mouth at [place] 00 bedtime. Medical Branch SERTraline 2020-0 Yes [id number] 100mg Take 1 [facility] 100 mg 1-14 tablet by ity of tablet 00:00: mouth [place] 00 every Medical morning. Branch tamsulosin 2020-0 Yes [id number] .4mg Take 1 [facility] 0.4 mg 24 1-14 capsule by ity of hr capsule 00:00: mouth [place] 00 daily. Medical Branch traZODone 2020-0 Yes [id number] 50mg Take 1 Un [place] 50 mg 1-14 tablet by ity of tablet 00:00: mouth at [place] 00 bedtime. Medical Branch levETIRAcet 2020-0 Yes [id number] 500mg Take 1 [facility] am 500 mg 1-14 tablet by ity o f tablet 00:00: mouth 2 [place] 00 (two) Medical times Branch daily. atorvastati 2020-0 Yes [id number] 80mg Take 1 [facility] n 80 mg 1-14 tablet by ity of tablet 00:00: mouth at [place] 00 bedtime. Medical Branch blood sugar 2020-0 Yes [id number] Use BID, [facility] diagnostic 1-14 DX E11.9 ity o f (BLOOD 00:00: (Brand [place] GLUCOSE 00 upon Medical TEST) strip insurance [facility] approval) gabapentin 2020-0 Yes [id number] 400mg Take 1 [facility] 400 mg 1-14 capsule by ity of capsule 00:00: mouth 3 [place] 00 (three) Medical times Branch daily. QUEtiapine 2020-0 Yes [id number] 100mg Take 1 [facility] 100 mg 1-14 tablet by ity of tablet 00:00: mouth at [place] 00 bedtime. Medical Branch SERTraline 2020-0 Yes [id number] 100mg Take 1 [facility] 100 mg 1-14 tablet by ity of tablet 00:00: mouth [place] 00 every Medical morning. Branch tamsulosin 2020-0 Yes [id number] .4mg Take 1 [facility] 0.4 mg 24 1-14 capsule by ity of hr capsule 00:00: mouth [place] 00 daily. Medical Branch traZODone 2020-0 Yes [id number] 50mg Take 1 [facility] [place] 50 mg 1-14 tablet by ity of tablet 00:00: mouth at [place] 00 bedtime. Medical Branch levETIRAcet 2020-0 Yes [id number] 500mg Take 1 [facility] am 500 mg 1-14 tablet by ity o f tablet 00:00: mouth 2 [place] (two) Medical times Branch daily. atorvastati 2020-0 Yes [id number] 80mg Take 1 [facility] n 80 mg 1-14 tablet by ity of tablet 00:00: mouth at [place] 00 bedtime. Medical Branch blood sugar 2020-0 Yes [id number] Use BID, [facility] diagnostic 1-14 DX E11.9 ity o f (BLOOD 00:00: (Brand [place] GLUCOSE 00 upon Medical TEST) strip insurance [facility] approval) gabapentin 2020-0 Yes [id number] 400mg Take 1 [facility] 400 mg 1-14 capsule by ity of capsule 00:00: mouth 3 [place] (three) Medical times Branch daily. QUEtiapine 2020-0 Yes [id number] 100mg Take 1 [facility] 100 mg 1-14 tablet by ity of tablet 00:00: mouth at [place] 00 bedtime. Medical Branch SERTraline 2020-0 Yes [id number] 100mg Take 1 [facility] 100 mg 1-14 tablet by ity of tablet 00:00: mouth [place] 00 every Medical morning. Branch tamsulosin 2020-0 Yes [id number] .4mg Take 1 [facility] 0.4 mg 24 1-14 capsule by ity of hr capsule 00:00: mouth [place] 00 daily. Medical Branch traZODone 2020-0 Yes [id number] 50mg Take 1 Un [place] 50 mg 1-14 tablet by ity of tablet 00:00: mouth at [place] 00 bedtime. Medical Branch levETIRAcet 2020-0 Yes [id number] 500mg Take 1 [facility] am 500 mg 1-14 tablet by ity o f tablet 00:00: mouth 2 [place] (two) Medical times Branch daily. atorvastati 2020-0 Yes [id number] 80mg Take 1 [facility] n 80 mg 1-14 tablet by ity of tablet 00:00: mouth at [place] 00 bedtime. Medical Branch blood sugar 2020-0 Yes [id number] Use BID, [facility] diagnostic 1-14 DX E11.9 ity o f (BLOOD 00:00: ([facility] GLUCOSE 00 upon Medical TEST) strip insurance [facility] approval) gabapentin 2020-0 Yes [id number] 400mg Take 1 [facility] 400 mg 1-14 capsule by ity of capsule 00:00: mouth 3 (three) Medical times Branch daily. QUEtiapine 2020-0 Yes [id number] 100mg Take 1 [facility] 100 mg 1-14 tablet by ity of tablet 00:00: mouth at [place] 00 bedtime. Medical Branch SERTraline 2020-0 Yes [id number] 100mg Take 1 [facility] 100 mg 1-14 tablet by ity of tablet 00:00: mouth [place] 00 every Medical morning. Branch tamsulosin 2020-0 Yes [id number] .4mg Take 1 [facility] 0.4 mg 24 1-14 capsule by ity of hr capsule 00:00: mouth 00 daily. Medical Branch traZODone 2020-0 Yes [id number] 50mg Take 1 Un [place] 50 mg 1-14 tablet by ity of tablet 00:00: mouth at [place] 00 bedtime. Medical Branch levETIRAcet 2020-0 Yes [id number] 500mg Take 1 [facility] am 500 mg 1-14 tablet by ity o f tablet 00:00: mouth 2 (two) Medical times Branch daily. atorvastati 2020-0 Yes [id number] 80mg Take 1 [facility] n 80 mg 1-14 tablet by ity of tablet 00:00: mouth at [place] 00 bedtime. Medical Branch blood sugar 2020-0 Yes [id number] Use BID, [facility] diagnostic 1-14 DX E11.9 ity o f (BLOOD 00:00: ([facility] GLUCOSE 00 upon Medical TEST) strip insurance [facility] approval) gabapentin 2020-0 Yes [id number] 400mg Take 1 [facility] 400 mg 1-14 capsule by ity of capsule 00:00: mouth 3 (three) Medical times Branch daily. QUEtiapine 2020-0 Yes [id number] 100mg Take 1 [facility] 100 mg 1-14 tablet by ity of tablet 00:00: mouth at [place] 00 bedtime. Medical Branch SERTraline 2020-0 Yes [id number] 100mg Take 1 [facility] 100 mg 1-14 tablet by ity of tablet 00:00: mouth [place] 00 every Medical morning. Branch tamsulosin 2020-0 Yes [id number] .4mg Take 1 [facility] 0.4 mg 24 1-14 capsule by ity of hr capsule 00:00: mouth [place] 00 daily. Medical Branch traZODone 2020-0 Yes [id number] 50mg Take 1 Un [place] 50 mg 1-14 tablet by ity of tablet 00:00: mouth at [place] 00 bedtime. Medical Branch levETIRAcet 2020-0 Yes [id number] 500mg Take 1 [facility] am 500 mg 1-14 tablet by ity o f tablet 00:00: mouth 2 (two) Medical times Branch daily. atorvastati 2020-0 Yes [id number] 80mg Take 1 [facility] n 80 mg 1-14 tablet by ity of tablet 00:00: mouth at [place] 00 bedtime. Medical Branch blood sugar 2020-0 Yes [id number] Use BID, [facility] diagnostic 1-14 DX E11.9 ity o f (BLOOD 00:00: (Brand [place] GLUCOSE 00 upon Medical TEST) strip insurance [facility] approval) gabapentin 2020-0 Yes [id number] 400mg Take 1 [facility] 400 mg 1-14 capsule by ity of capsule 00:00: mouth 3 (three) Medical times Branch daily. QUEtiapine 2020-0 Yes [id number] 100mg Take 1 [facility] 100 mg 1-14 tablet by ity of tablet 00:00: mouth at [place] 00 bedtime. Medical Branch SERTraline 2020-0 Yes [id number] 100mg Take 1 [facility] 100 mg 1-14 tablet by ity of tablet 00:00: mouth [place] 00 every Medical morning. Branch tamsulosin 2020-0 Yes [id number] .4mg Take 1 [facility] 0.4 mg 24 1-14 capsule by [facility] hr capsule 00:00: mouth 00 daily. [facility] traZODone 2020-0 Yes [id number] 50mg Take 1 [facility] 50 mg 1-14 tablet by [facility] tablet 00:00: mouth at [place] 00 bedtime. [facility] levETIRAcet 2020-0 Yes [id number] 500mg Take 1 [facility] am 500 mg 1-14 tablet by [facility] o f tablet 00:00: mouth 2 (two) Medical times Branch daily. atorvastati 2020-0 Yes [id number] 80mg Take 1 [facility] n 80 mg 1-14 tablet by [facility] of tablet 00:00: mouth at [place] 00 bedtime. [facility] blood sugar 2020-0 Yes [id number] Use BID, [facility] diagnostic 1-14 DX E11.9 [facility] o f (BLOOD 00:00: (Brand [place] GLUCOSE 00 upon Medical TEST) strip insurance [facility] approval) gabapentin 2020-0 Yes [id number] 400mg Take 1 [facility] 400 mg 1-14 capsule by [facility] of capsule 00:00: mouth 3 00 (three) Medical times Branch daily. QUEtiapine 2020-0 Yes [id number] 100mg Take 1 [facility] 100 mg 1-14 tablet by [facility] of tablet 00:00: mouth at [place] 00 bedtime. Medical [facility] SERTraline 2020-0 Yes [id number] 100mg Take 1 [facility] 100 mg 1-14 tablet by [facility] of tablet 00:00: mouth [place] 00 every Medical morning. Branch tamsulosin 2020-0 Yes [id number] .4mg Take 1 [facility] 0.4 mg 24 1-14 capsule by [facility] hr capsule 00:00: mouth [place] 00 daily. [facility] traZODone 2020-0 Yes [id number] 50mg Take 1 [facility] 50 mg 1-14 tablet by [facility] of tablet 00:00: mouth at [place] 00 bedtime. [facility] levETIRAcet 2020-0 Yes [id number] 500mg Take 1 [facility] am 500 mg 1-14 tablet by [facility] o f tablet 00:00: mouth 2 (two) Medical times Branch daily. atorvastati 2020-0 Yes [id number] 80mg Take 1 [facility] n 80 mg 1-14 tablet by [facility] of tablet 00:00: mouth at [place] 00 bedtime. [facility] blood sugar 2020-0 Yes [id number] Use BID, [facility] diagnostic 1-14 DX E11.9 [facility] o f (BLOOD 00:00: (Brand [place] GLUCOSE 00 upon Medical TEST) strip insurance [facility] approval) gabapentin 2020-0 Yes [id number] 400mg Take 1 [facility] 400 mg 1-14 capsule by [facility] of capsule 00:00: mouth 3 (three) Medical times Branch daily. QUEtiapine 2020-0 Yes [id number] 100mg Take 1 [facility] 100 mg 1-14 tablet by [facility] of tablet 00:00: mouth at [place] 00 bedtime. Medical [facility] SERTraline 2020-0 Yes [id number] 100mg Take 1 [facility] 100 mg 1-14 tablet by [facility] of tablet 00:00: mouth [place] 00 every Medical morning. Branch tamsulosin 2020-0 Yes [id number] .4mg Take 1 [facility] 0.4 mg 24 1-14 capsule by [facility] hr capsule 00:00: mouth [place] 00 daily. [facility] traZODone 2020-0 Yes [id number] 50mg Take 1 [facility] 50 mg 1-14 tablet by [facility] tablet 00:00: mouth at [place] 00 bedtime. [facility] levETIRAcet 2020-0 Yes [id number] 500mg Take 1 [facility] am 500 mg 1-14 tablet by [facility] o f tablet 00:00: mouth 2 [place] (two) Medical times Branch daily. atorvastati 2020-0 Yes [id number] 80mg Take 1 [facility] n 80 mg 1-14 tablet by [facility] of tablet 00:00: mouth at [place] [address] bedtime. Medical [facility] blood sugar 2020-0 Yes [id number] Use BID, [facility] diagnostic 1-14 DX E11.9 [facility] o f (BLOOD 00:00: (Brand [place] GLUCOSE 00 upon Medical TEST) strip insurance [facility] approval) gabapentin 2020-0 Yes [id number] 400mg Take 1 [facility] 400 mg 1-14 capsule by [facility] of capsule 00:00: mouth 3 [place] (three) Medical times Branch daily. QUEtiapine 2020-0 Yes [id number] 100mg Take 1 [facility] 100 mg 1-14 tablet by [facility] of tablet 00:00: mouth at [place] 00 bedtime. Medical [facility] SERTraline 2020-0 Yes [id number] 100mg Take 1 [facility] 100 mg 1-14 tablet by [facility] of tablet 00:00: mouth [place] 00 every Medical morning. Branch tamsulosin 2020-0 Yes [id number] .4mg Take 1 [facility] 0.4 mg 24 1-14 capsule by [facility] hr capsule 00:00: mouth [place] 00 daily. [facility] traZODone 2020-0 Yes [id number] 50mg Take 1 [facility] 50 mg 1-14 tablet by [facility] of tablet 00:00: mouth at [place] 00 bedtime. [facility] levETIRAcet 2020-0 Yes [id number] 500mg Take 1 [facility] am 500 mg 1-14 tablet by [facility] o f tablet 00:00: mouth 2 [place] 00 (two) Medical times Branch daily. atorvastati 2020-0 Yes [id number] 80mg Take 1 [facility] n 80 mg 1-14 tablet by [facility] of tablet 00:00: mouth at [place] 00 bedtime. [facility] blood sugar 2020-0 Yes [id number] Use BID, [facility] diagnostic 1-14 DX E11.9 [facility] o f (BLOOD 00:00: (Brand [place] GLUCOSE 00 upon Medical TEST) strip insurance [facility] approval) gabapentin 2020-0 Yes [id number] 400mg Take 1 [facility] 400 mg 1-14 capsule by [facility] of capsule 00:00: mouth 3 (three) Medical times Branch daily. QUEtiapine 2020-0 Yes [id number] 100mg Take 1 [facility] 100 mg 1-14 tablet by [facility] of tablet 00:00: mouth at [place] 00 bedtime. Medical [facility] SERTraline 2020-0 Yes [id number] 100mg Take 1 [facility] 100 mg 1-14 tablet by [facility] of tablet 00:00: mouth [place] 00 every Medical morning. Branch tamsulosin 2020-0 Yes [id number] .4mg Take 1 [facility] 0.4 mg 24 1-14 capsule by [facility] hr capsule 00:00: mouth 00 daily. [facility] traZODone 2020-0 Yes [id number] 50mg Take 1 [facility] 50 mg 1-14 tablet by [facility] tablet 00:00: mouth at [place] 00 bedtime. [facility] levETIRAcet 2020-0 Yes [id number] 500mg Take 1 [facility] am 500 mg 1-14 tablet by [facility] o f tablet 00:00: mouth 2 (two) Medical times Branch daily. atorvastati 2020-0 Yes [id number] 80mg Take 1 [facility] n 80 mg 1-14 tablet by [facility] of tablet 00:00: mouth at [place] 00 bedtime. [facility] blood sugar 2020-0 Yes [id number] Use BID, [facility] diagnostic 1-14 DX E11.9 [facility] o f (BLOOD 00:00: (Brand [place] GLUCOSE 00 upon Medical TEST) strip insurance [facility] approval) gabapentin 2020-0 Yes [id number] 400mg Take 1 [facility] 400 mg 1-14 capsule by [facility] of capsule 00:00: mouth 3 [place] (three) Medical times Branch daily. QUEtiapine 2020-0 Yes [id number] 100mg Take 1 [facility] 100 mg 1-14 tablet by [facility] of tablet 00:00: mouth at [place] 00 bedtime. Medical [facility] SERTraline 2020-0 Yes [id number] 100mg Take 1 [facility] 100 mg 1-14 tablet by [facility] of tablet 00:00: mouth [place] 00 every Medical morning. Branch tamsulosin 2020-0 Yes [id number] .4mg Take 1 [facility] 0.4 mg 24 1-14 capsule by [facility] hr capsule 00:00: mouth [place] 00 daily. [facility] traZODone 2020-0 Yes [id number] 50mg Take 1 [facility] 50 mg 1-14 tablet by [facility] of tablet 00:00: mouth at [place] 00 bedtime. [facility] levETIRAcet 2020-0 Yes [id number] 500mg Take 1 [facility] am 500 mg 1-14 tablet by [facility] o f tablet 00:00: mouth 2 (two) Medical times Branch daily. atorvastati 2020-0 Yes [id number] 80mg Take 1 [facility] n 80 mg 1-14 tablet by [facility] of tablet 00:00: mouth at [place] 00 bedtime. [facility] blood sugar 2020-0 Yes [id number] Use BID, [facility] diagnostic 1-14 DX E11.9 [facility] o f (BLOOD 00:00: (Brand [place] GLUCOSE 00 upon Medical TEST) strip insurance [facility] approval) gabapentin 2020-0 Yes [id number] 400mg Take 1 [facility] 400 mg 1-14 capsule by [facility] of capsule 00:00: mouth 3 (three) Medical times Branch daily. QUEtiapine 2020-0 Yes [id number] 100mg Take 1 [facility] 100 mg 1-14 tablet by [facility] of tablet 00:00: mouth at [place] 00 bedtime. [facility] SERTraline 2020-0 Yes [id number] 100mg Take 1 [facility] 100 mg 1-14 tablet by [facility] of tablet 00:00: mouth [place] 00 every Medical morning. Branch tamsulosin 2020-0 Yes [id number] .4mg Take 1 [facility] 0.4 mg 24 1-14 capsule by [facility] of hr capsule 00:00: mouth [place] 00 daily. [facility] traZODone 2020-0 Yes [id number] 50mg Take 1 [facility] 50 mg 1-14 tablet by [facility] of tablet 00:00: mouth at [place] 00 bedtime. [facility] levETIRAcet 2020-0 Yes [id number] 500mg Take 1 [facility] am 500 mg 1-14 tablet by [facility] o f tablet 00:00: mouth 2 (two) Medical times Branch daily. atorvastati 2020-0 Yes [id number] 80mg Take 1 [facility] n 80 mg 1-14 tablet by [facility] of tablet 00:00: mouth at [place] 00 bedtime. [facility] blood sugar 2020-0 Yes [id number] Use BID, [facility] diagnostic 1-14 DX E11.9 it[facility] o f (BLOOD 00:00: (Brand [place] GLUCOSE 00 upon Medical TEST) strip insurance [facility] approval) gabapentin 2020-0 Yes [id number] 400mg Take 1 [facility] 400 mg 1-14 capsule by [facility] of capsule 00:00: mouth 3 (three) Medical times Branch daily. QUEtiapine 2020-0 Yes [id number] 100mg Take 1 [facility] 100 mg 1-14 tablet by [facility] of tablet 00:00: mouth at [place] 00 bedtime. [facility] SERTraline 2020-0 Yes [id number] 100mg Take 1 [facility] 100 mg 1-14 tablet by [facility] of tablet 00:00: mouth [place] 00 every Medical morning. Branch tamsulosin 2020-0 Yes [id number] .4mg Take 1 [facility] 0.4 mg 24 1-14 capsule by [facility] of hr capsule 00:00: mouth daily. [facility] traZODone 2020-0 Yes [id number] 50mg Take 1 [facility] 50 mg 1-14 tablet by [facility] of tablet 00:00: mouth at [place] 00 bedtime. [facility] levETIRAcet 2020-0 Yes [id number] 500mg Take 1 [facility] am 500 mg 1-14 tablet by [facility] o f tablet 00:00: mouth 2 (two) Medical times Branch daily. atorvastati 2020-0 Yes [id number] 80mg Take 1 [facility] n 80 mg 1-14 tablet by [facility] of tablet 00:00: mouth at [place] 00 bedtime. [facility] blood sugar 2020-0 Yes [id number] Use BID, [facility] diagnostic 1-14 DX E11.9 it[facility] o f (BLOOD 00:00: (Brand [place] GLUCOSE 00 upon Medical TEST) strip insurance [facility] approval) gabapentin 2020-0 Yes [id number] 400mg Take 1 [facility] 400 mg 1-14 capsule by [facility] of capsule 00:00: mouth 3 (three) Medical times Branch daily. QUEtiapine 2020-0 Yes [id number] 100mg Take 1 [facility] 100 mg 1-14 tablet by [facility] of tablet 00:00: mouth at [place] 00 bedtime. [facility] SERTraline 2020-0 Yes [id number] 100mg Take 1 [facility] 100 mg 1-14 tablet by [facility] of tablet 00:00: mouth [place] 00 every Medical morning. Branch tamsulosin 2020-0 Yes [id number] .4mg Take 1 [facility] 0.4 mg 24 1-14 capsule by [facility] of hr capsule 00:00: mouth [place] 00 daily. [facility] traZODone 2020-0 Yes [id number] 50mg Take 1 [facility] 50 mg 1-14 tablet by [facility] of tablet 00:00: mouth at [place] 00 bedtime. [facility] levETIRAcet 2020-0 Yes [id number] 500mg Take 1 [facility] am 500 mg 1-14 tablet by [facility]y o f tablet 00:00: mouth 2 (two) Medical times Branch daily. atorvastati 2020-0 Yes [id number] 80mg Take 1 [facility] n 80 mg 1-14 tablet by [facility] of tablet 00:00: mouth at [place] 00 bedtime. [facility] blood sugar 2020-0 Yes [id number] Use BID, [facility] diagnostic 1-14 DX E11.9 it[facility] o f (BLOOD 00:00: (Brand [place] GLUCOSE 00 upon Medical TEST) strip insurance [facility] approval) gabapentin 2020-0 Yes [id number] 400mg Take 1 [facility] 400 mg 1-14 capsule by [facility] of capsule 00:00: mouth 3 (three) Medical times Branch daily. QUEtiapine 2020-0 Yes [id number] 100mg Take 1 [facility] 100 mg 1-14 tablet by [facility] of tablet 00:00: mouth at [place] 00 bedtime. [facility] SERTraline 2020-0 Yes [id number] 100mg Take 1 [facility] 100 mg 1-14 tablet by [facility]y of tablet 00:00: mouth [place] 00 every Medical morning. Branch tamsulosin 2020-0 Yes [id number] .4mg Take 1 [facility] 0.4 mg 24 1-14 capsule by [facility] of hr capsule 00:00: mouth [place] 00 daily. [facility] traZODone 2020-0 Yes [id number] 50mg Take 1 [facility] 50 mg 1-14 tablet by [facility] of tablet 00:00: mouth at [place] 00 bedtime. [facility] levETIRAcet 2020-0 Yes [id number] 500mg Take 1 [facility] am 500 mg 1-14 tablet by [facility]y o f tablet 00:00: mouth 2 [place] 00 (two) Medical times Branch daily. atorvastati 2020-0 Yes [id number] 80mg Take 1 [facility] n 80 mg 1-14 tablet by [facility] of tablet 00:00: mouth at [place] 00 bedtime. [facility] blood sugar 2020-0 Yes [id number] Use BID, [facility] diagnostic 1-14 DX E11.9 ity o f (BLOOD 00:00: (Brand [place] GLUCOSE 00 upon Medical TEST) strip insurance [facility] approval) gabapentin 2020-0 Yes [id number] 400mg Take 1 [facility] 400 mg 1-14 capsule by [facility] of capsule 00:00: mouth 3 (three) Medical times Branch daily. QUEtiapine 2020-0 Yes [id number] 100mg Take 1 [facility] 100 mg 1-14 tablet by [facility] of tablet 00:00: mouth at [place] 00 bedtime. [facility] SERTraline 2020-0 Yes [id number] 100mg Take 1 [facility] 100 mg 1-14 tablet by [facility]y of tablet 00:00: mouth [place] 00 every Medical morning. Branch tamsulosin 2020-0 Yes [id number] .4mg Take 1 [facility] 0.4 mg 24 1-14 capsule by [facility] of hr capsule 00:00: mouth 00 daily. [facility] traZODone 2020-0 Yes [id number] 50mg Take 1 [facility] 50 mg 1-14 tablet by [facility] of tablet 00:00: mouth at [place] 00 bedtime. [facility] levETIRAcet 2020-0 Yes [id number] 500mg Take 1 [facility] am 500 mg 1-14 tablet by ity o f tablet 00:00: mouth 2 (two) Medical times Branch daily. atorvastati 2020-0 Yes [id number] 80mg Take 1 [facility] n 80 mg 1-14 tablet by ity of tablet 00:00: mouth at [place] 00 bedtime. [facility] blood sugar 2020-0 Yes [id number] Use BID, [facility] diagnostic 1-14 DX E11.9 it[facility] o f (BLOOD 00:00: (Brand [place] GLUCOSE 00 upon Medical TEST) strip insurance [facility] approval) gabapentin 2020-0 Yes [id number] 400mg Take 1 [facility] 400 mg 1-14 capsule by [facility] of capsule 00:00: mouth 3 (three) Medical times Branch daily. QUEtiapine 2020-0 Yes [id number] 100mg Take 1 [facility] 100 mg 1-14 tablet by [facility]y of tablet 00:00: mouth at [place] 00 bedtime. [facility] SERTraline 2020-0 Yes [id number] 100mg Take 1 [facility] 100 mg 1-14 tablet by [facility]y of tablet 00:00: mouth [place] 00 every Medical morning. Branch tamsulosin 2020-0 Yes [id number] .4mg Take 1 [facility] 0.4 mg 24 1-14 capsule by [facility]y of hr capsule 00:00: mouth [place] 00 daily. [facility] traZODone 2020-0 Yes [id number] 50mg Take 1 [facility] 50 mg 1-14 tablet by [facility] of tablet 00:00: mouth at [place] 00 bedtime. [facility] levETIRAcet 2020-0 Yes [id number] 500mg Take 1 [facility] am 500 mg 1-14 tablet by ity o f tablet 00:00: mouth 2 [place] 00 (two) Medical times Branch daily. atorvastati 2020-0 Yes [id number] 80mg Take 1 [facility] n 80 mg 1-14 tablet by [facility]y of tablet 00:00: mouth at [place] 00 bedtime. [facility] blood sugar 2020-0 Yes [id number] Use BID, [facility] diagnostic 1-14 DX E11.9 ity o f (BLOOD 00:00: (Brand [place] GLUCOSE 00 upon Medical TEST) strip insurance [facility] approval) gabapentin 2020-0 Yes [id number] 400mg Take 1 [facility] 400 mg 1-14 capsule by ity of capsule 00:00: mouth 3 [place] 00 (three) Medical times Branch daily. Pioglitazon 2020-0 Yes [id number] 1{tbl} Take 1 [facility] e-Metformin 1-14 tablet by ity of 15-1,000 mg 00:00: mouth 2 [place] [facility] 00 (two) Medical times Branch daily with meals. QUEtiapine 2020-0 Yes [id number] 100mg Take 1 [facility] 100 mg 1-14 tablet by ity of tablet 00:00: mouth at [place] 00 bedtime. [facility] SERTraline 2020-0 Yes [id number] 100mg Take 1 [facility] 100 mg 1-14 tablet by ity of tablet 00:00: mouth [place] 00 every Medical morning. Branch tamsulosin 2020-0 Yes [id number] .4mg Take 1 [facility] 0.4 mg 24 1-14 capsule by ity of hr capsule 00:00: mouth [place] 00 daily. [facility] traZODone 2020-0 Yes [id number] 50mg Take 1 [facility] 50 mg 1-14 tablet by [facility] of tablet 00:00: mouth at [place] 00 bedtime. [facility] levETIRAcet 2020-0 Yes [id number] 500mg Take 1 [facility] am 500 mg 1-14 tablet by ity o f tablet 00:00: mouth 2 [place] 00 (two) Medical times Branch daily. atorvastati 2020-0 Yes [id number] 80mg Take 1 [facility] n 80 mg 1-14 tablet by ity of tablet 00:00: mouth at [place] 00 bedtime. [facility] blood sugar 2020-0 Yes [id number] Use BID, [facility] diagnostic 1-14 DX E11.9 ity o f (BLOOD 00:00: (Brand [place] GLUCOSE 00 upon Medical TEST) strip insurance [facility] approval) gabapentin 2020-0 Yes [id number] 400mg Take 1 [facility] 400 mg 1-14 capsule by ity of capsule 00:00: mouth 3 [place] (three) Medical times Branch daily. Pioglitazon 2020-0 Yes [id number] 1{tbl} Take 1 [facility] e-Metformin 1-14 tablet by ity of 15-1,000 mg 00:00: mouth 2 [place] [facility] 00 (two) Medical times Branch daily with meals. QUEtiapine 2020-0 Yes [id number] 100mg Take 1 [facility] 100 mg 1-14 tablet by ity of tablet 00:00: mouth at [place] 00 bedtime. [facility] SERTraline 2020-0 Yes [id number] 100mg Take 1 [facility] 100 mg 1-14 tablet by ity of tablet 00:00: mouth [place] 00 every Medical morning. Branch tamsulosin 2020-0 Yes [id number] .4mg Take 1 [facility] 0.4 mg 24 1-14 capsule by ity of hr capsule 00:00: mouth [place] 00 daily. [facility] traZODone 2020-0 Yes [id number] 50mg Take 1 [facility] 50 mg 1-14 tablet by [facility]y of tablet 00:00: mouth at [place] 00 bedtime. [facility] levETIRAcet 2020-0 Yes [id number] 500mg Take 1 [facility] am 500 mg 1-14 tablet by ity o f tablet 00:00: mouth 2 [place] 00 (two) Medical times Branch daily. atorvastati 2020-0 Yes [id number] 80mg Take 1 [facility] n 80 mg 1-14 tablet by [facility]y of tablet 00:00: mouth at [place] 00 bedtime. [facility] blood sugar 2020-0 Yes [id number] Use BID, [facility] diagnostic 1-14 DX E11.9 it[facility] o f (BLOOD 00:00: (Brand [place] GLUCOSE 00 upon Medical TEST) strip insurance [facility] approval) gabapentin 2020-0 Yes [id number] 400mg Take 1 [facility] 400 mg 1-14 capsule by ity of capsule 00:00: mouth 3 [place] 00 (three) Medical times Branch daily. Pioglitazon 2020-0 Yes [id number] 1{tbl} Take 1 [facility] e-Metformin 1-14 tablet by ity of 15-1,000 mg 00:00: mouth 2 [place] [facility] 00 (two) Medical times Branch daily with meals. QUEtiapine 2020-0 Yes [id number] 100mg Take 1 [facility] 100 mg 1-14 tablet by ity of tablet 00:00: mouth at [place] 00 bedtime. Medical [facility] SERTraline 2020-0 Yes [id number] 100mg Take 1 [facility] 100 mg 1-14 tablet by ity of tablet 00:00: mouth [place] 00 every Medical morning. Branch tamsulosin 2020-0 Yes [id number] .4mg Take 1 [facility] 0.4 mg 24 1-14 capsule by ity of hr capsule 00:00: mouth [place] 00 daily. [facility] traZODone 2020-0 Yes [id number] 50mg Take 1 [facility] 50 mg 1-14 tablet by ity of tablet 00:00: mouth at [place] 00 bedtime. [facility] levETIRAcet 2020-0 Yes [id number] 500mg Take 1 [facility] am 500 mg 1-14 tablet by ity o f tablet 00:00: mouth 2 [place] 00 (two) Medical times Branch daily. atorvastati 2020-0 Yes [id number] 80mg Take 1 [facility] n 80 mg 1-14 tablet by ity of tablet 00:00: mouth at [place] 00 bedtime. [facility] blood sugar 2020-0 Yes [id number] Use BID, [facility] diagnostic 1-14 DX E11.9 ity o f (BLOOD 00:00: (Brand [place] GLUCOSE 00 upon Medical TEST) strip insurance [facility] approval) gabapentin 2020-0 Yes [id number] 400mg Take 1 [facility] 400 mg 1-14 capsule by ity of capsule 00:00: mouth 3 [place] 00 (three) Medical times Branch daily. Pioglitazon 2020-0 Yes [id number] 1{tbl} Take 1 [facility] e-Metformin 1-14 tablet by ity of 15-1,000 mg 00:00: mouth 2 [place] [facility] 00 (two) Medical times Branch daily with meals. QUEtiapine 2020-0 Yes [id number] 100mg Take 1 [facility] 100 mg 1-14 tablet by ity of tablet 00:00: mouth at [place] 00 bedtime. [facility] SERTraline 2020-0 Yes [id number] 100mg Take 1 [facility] 100 mg 1-14 tablet by ity of tablet 00:00: mouth [place] 00 every Medical morning. Branch tamsulosin 2020-0 Yes [id number] .4mg Take 1 [facility] 0.4 mg 24 1-14 capsule by ity of hr capsule 00:00: mouth [place] 00 daily. [facility] traZODone 2020-0 Yes [id number] 50mg Take 1 [facility] 50 mg 1-14 tablet by [facility] of tablet 00:00: mouth at [place] 00 bedtime. [facility] levETIRAcet 2020-0 Yes [id number] 500mg Take 1 [facility] am 500 mg 1-14 tablet by ity o f tablet 00:00: mouth 2 [place] 00 (two) Medical times Branch daily. atorvastati 2020-0 Yes [id number] 80mg Take 1 [facility] n 80 mg 1-14 tablet by ity of tablet 00:00: mouth at [place] 00 bedtime. [facility] blood sugar 2020-0 Yes [id number] Use BID, [facility] diagnostic 1-14 DX E11.9 it[facility] o f (BLOOD 00:00: (Brand [place] GLUCOSE 00 upon Medical TEST) strip insurance [facility] approval) gabapentin 2020-0 Yes [id number] 400mg Take 1 [facility] 400 mg 1-14 capsule by ity of capsule 00:00: mouth 3 [place] 00 (three) Medical times Branch daily. Pioglitazon 2020-0 Yes [id number] 1{tbl} Take 1 [facility] e-Metformin 1-14 tablet by ity of 15-1,000 mg 00:00: mouth 2 [place] [facility] 00 (two) Medical times Branch daily with meals. QUEtiapine 2020-0 Yes [id number] 100mg Take 1 [facility] 100 mg 1-14 tablet by ity of tablet 00:00: mouth at [place] 00 bedtime. [facility] SERTraline 2020-0 Yes [id number] 100mg Take 1 [facility] 100 mg 1-14 tablet by ity of tablet 00:00: mouth [place] 00 every Medical morning. Branch tamsulosin 2020-0 Yes [id number] .4mg Take 1 [facility] 0.4 mg 24 1-14 capsule by ity of hr capsule 00:00: mouth [place] 00 daily. [facility] traZODone 2020-0 Yes [id number] 50mg Take 1 [facility] [place] 50 mg 1-14 tablet by [facility] of tablet 00:00: mouth at [place] 00 bedtime. [facility] levETIRAcet 2020-0 Yes [id number] 500mg Take 1 [facility] am 500 mg 1-14 tablet by ity o f tablet 00:00: mouth 2 [place] 00 (two) Medical times Branch daily. atorvastati 2020-0 Yes [id number] 80mg Take 1 [facility] n 80 mg 1-14 tablet by ity of tablet 00:00: mouth at [place] 00 bedtime. [facility] blood sugar 2020-0 Yes [id number] Use BID, [facility] diagnostic 1-14 DX E11.9 ity o f (BLOOD 00:00: (Brand [place] GLUCOSE 00 upon Medical TEST) strip insurance [facility] approval) gabapentin 2020-0 Yes [id number] 400mg Take 1 [facility] 400 mg 1-14 capsule by ity of capsule 00:00: mouth 3 [place] 00 (three) Medical times Branch daily. Pioglitazon 2020-0 Yes [id number] 1{tbl} Take 1 [facility] e-Metformin 1-14 tablet by ity of 15-1,000 mg 00:00: mouth 2 [place] [facility] 00 (two) Medical times Branch daily with meals. QUEtiapine 2020-0 Yes [id number] 100mg Take 1 [facility] 100 mg 1-14 tablet by ity of tablet 00:00: mouth at [place] 00 bedtime. [facility] SERTraline 2020-0 Yes [id number] 100mg Take 1 [facility] 100 mg 1-14 tablet by ity of tablet 00:00: mouth [place] 00 every Medical morning. Branch tamsulosin 2020-0 Yes [id number] .4mg Take 1 [facility] 0.4 mg 24 1-14 capsule by ity of hr capsule 00:00: mouth [place] 00 daily. [facility] traZODone 2020-0 Yes [id number] 50mg Take 1 [facility] [place] 50 mg 1-14 tablet by [facility] of tablet 00:00: mouth at [place] 00 bedtime. [facility] levETIRAcet 2020-0 Yes [id number] 500mg Take 1 [facility] am 500 mg 1-14 tablet by ity o f tablet 00:00: mouth 2 [place] 00 (two) Medical times Branch daily. atorvastati 2020-0 Yes [id number] 80mg Take 1 [facility] n 80 mg 1-14 tablet by ity of tablet 00:00: mouth at [place] 00 bedtime. [facility] blood sugar 2020-0 Yes [id number] Use BID, [facility] diagnostic 1-14 DX E11.9 ity o f (BLOOD 00:00: (Brand [place] GLUCOSE 00 upon Medical TEST) strip insurance [facility] approval) gabapentin 2020-0 Yes [id number] 400mg Take 1 [facility] 400 mg 1-14 capsule by ity of capsule 00:00: mouth 3 [place] (three) Medical times Branch daily. Pioglitazon 2020-0 Yes [id number] 1{tbl} Take 1 [facility] e-Metformin 1-14 tablet by ity of 15-1,000 mg 00:00: mouth 2 [place] [facility] 00 (two) Medical times Branch daily with meals. QUEtiapine 2020-0 Yes [id number] 100mg Take 1 [facility] 100 mg 1-14 tablet by ity of tablet 00:00: mouth at [place] 00 bedtime. Medical [facility] SERTraline 2020-0 Yes [id number] 100mg Take 1 [facility] 100 mg 1-14 tablet by ity of tablet 00:00: mouth [place] 00 every Medical morning. Branch tamsulosin 2020-0 Yes [id number] .4mg Take 1 [facility] 0.4 mg 24 1-14 capsule by ity of hr capsule 00:00: mouth [place] 00 daily. [facility] traZODone 2020-0 Yes [id number] 50mg Take 1 [facility] [place] 50 mg 1-14 tablet by [facility] of tablet 00:00: mouth at [place] 00 bedtime. [facility] levETIRAcet 2020-0 Yes [id number] 500mg Take 1 [facility] am 500 mg 1-14 tablet by ity o f tablet 00:00: mouth 2 [place] 00 (two) Medical times Branch daily. atorvastati 2020-0 Yes [id number] 80mg Take 1 [facility] n 80 mg 1-14 tablet by ity of tablet 00:00: mouth at [place] 00 bedtime. Medical [facility] blood sugar 2020-0 Yes [id number] Use BID, [facility] diagnostic 1-14 DX E11.9 ity o f (BLOOD 00:00: (Brand [place] GLUCOSE 00 upon Medical TEST) strip insurance [facility] approval) gabapentin 2020-0 Yes [id number] 400mg Take 1 [facility] 400 mg 1-14 capsule by ity of capsule 00:00: mouth 3 [place] 00 (three) Medical times Branch daily. Pioglitazon 2020-0 Yes [id number] 1{tbl} Take 1 [facility] e-Metformin 1-14 tablet by ity of 15-1,000 mg 00:00: mouth 2 [place] [facility] 00 (two) Medical times Branch daily with meals. QUEtiapine 2020-0 Yes [id number] 100mg Take 1 [facility] 100 mg 1-14 tablet by ity of tablet 00:00: mouth at [place] 00 bedtime. Medical [facility] SERTraline 2020-0 Yes [id number] 100mg Take 1 [facility] 100 mg 1-14 tablet by ity of tablet 00:00: mouth [place] 00 every Medical morning. Branch tamsulosin 2020-0 Yes [id number] .4mg Take 1 [facility] 0.4 mg 24 1-14 capsule by ity of hr capsule 00:00: mouth [place] 00 daily. [facility] traZODone 2020-0 Yes [id number] 50mg Take 1 [facility] [place] 50 mg 1-14 tablet by [facility] of tablet 00:00: mouth at [place] 00 bedtime. [facility] levETIRAcet 2020-0 Yes [id number] 500mg Take 1 [facility] am 500 mg 1-14 tablet by [facility] o f tablet 00:00: mouth 2 [place] 00 (two) Medical times Branch daily. atorvastati 2020-0 Yes [id number] 80mg Take 1 [facility] n 80 mg 1-14 tablet by [facility] tablet 00:00: mouth at [place] 00 bedtime. [facility] blood sugar 2020-0 Yes [id number] Use BID, [facility] diagnostic 1-14 DX E11.9 [facility] o f (BLOOD 00:00: (Brand [place] GLUCOSE 00 upon Medical TEST) strip insurance [facility] approval) gabapentin 2020-0 Yes [id number] 400mg Take 1 [facility] 400 mg 1-14 capsule by [facility] capsule 00:00: mouth 3 [place] 00 (three) Medical times Branch daily. Pioglitazon 2020-0 Yes [id number] 1{tbl} Take 1 [facility] e-Metformin 1-14 tablet by [facility] of 15-1,000 mg 00:00: mouth 2 [place] [facility] 00 (two) Medical times Branch daily with meals. QUEtiapine 2020-0 Yes [id number] 100mg Take 1 [facility] 100 mg 1-14 tablet by [facility] of tablet 00:00: mouth at [place] 00 bedtime. Medical [facility] SERTraline 2020-0 Yes [id number] 100mg Take 1 [facility] 100 mg 1-14 tablet by [facility] of tablet 00:00: mouth [place] 00 every Medical morning. Branch tamsulosin 2020-0 Yes [id number] .4mg Take 1 [facility] 0.4 mg 24 1-14 capsule by [facility] of hr capsule 00:00: mouth [place] 00 daily. Medical [facility] traZODone 2020-0 Yes [id number] 50mg Take 1 [facility] 50 mg 1-14 tablet by [facility] tablet 00:00: mouth at [place] 00 bedtime. Medical [facility] levETIRAcet 2020-0 Yes [id number] 500mg Take 1 [facility] am 500 mg 1-14 tablet by [facility] o f tablet 00:00: mouth 2 [place] 00 (two) Medical times Branch daily. atorvastati 2020-0 Yes [id number] 80mg Take 1 [facility] n 80 mg 1-14 tablet by [facility] of tablet 00:00: mouth at [place] 00 bedtime. Medical Branch blood sugar 2020-0 Yes [id number] Use BID, [facility] diagnostic 1-14 DX E11.9 it[facility] o f (BLOOD 00:00: ([facility] GLUCOSE 00 upon Medical TEST) strip insurance [facility] approval) gabapentin 2020-0 Yes [id number] 400mg Take 1 [facility] 400 mg 1-14 capsule by it[facility] of capsule 00:00: mouth 3 [place] 00 (three) Medical times Branch daily. Pioglitazon 2020-0 Yes [id number] 1{tbl} Take 1 [facility] e-Metformin 1-14 tablet by [facility] of 15-1,000 mg 00:00: mouth 2 [place] [facility] 00 (two) Medical times Branch daily with meals. QUEtiapine 2020-0 Yes [id number] 100mg Take 1 [facility] 100 mg 1-14 tablet by [facility] of tablet 00:00: mouth at [place] 00 bedtime. Medical Branch SERTraline 2020-0 Yes [id number] 100mg Take 1 [facility] 100 mg 1-14 tablet by [facility] of tablet 00:00: mouth [place] 00 every Medical morning. Branch tamsulosin 2020-0 Yes [id number] .4mg Take 1 [facility] 0.4 mg 24 1-14 capsule by [facility] of hr capsule 00:00: mouth [place] 00 daily. Medical Branch traZODone 2020-0 Yes [id number] 50mg Take 1 [facility] [place] 50 mg 1-14 tablet by [facility] of tablet 00:00: mouth at [place] 00 bedtime. Medical Branch levETIRAcet 2020-0 Yes [id number] 500mg Take 1 [facility] am 500 mg 1-14 tablet by it[facility] o f tablet 00:00: mouth 2 [place] 00 (two) Medical times Branch daily. atorvastati 2020-0 Yes [id number] 80mg Take 1 [facility] n 80 mg 1-14 tablet by [facility] of tablet 00:00: mouth at [place] 00 bedtime. Medical Branch blood sugar 2020-0 Yes [id number] Use BID, [facility] diagnostic 1-14 DX E11.9 it[facility] o f (BLOOD 00:00: (Brand [place] GLUCOSE 00 upon Medical TEST) strip insurance [facility] approval) gabapentin 2020-0 Yes [id number] 400mg Take 1 [facility] 400 mg 1-14 capsule by it[facility] of capsule 00:00: mouth 3 [place] 00 (three) Medical times Branch daily. Pioglitazon 2020-0 Yes [id number] 1{tbl} Take 1 [facility] e-Metformin 1-14 tablet by [facility] of 15-1,000 mg 00:00: mouth 2 [place] [facility] 00 (two) Medical times Branch daily with meals. QUEtiapine 2020-0 Yes [id number] 100mg Take 1 [facility] 100 mg 1-14 tablet by [facility] of tablet 00:00: mouth at [place] 00 bedtime. Medical Branch SERTraline 2020-0 Yes [id number] 100mg Take 1 [facility] 100 mg 1-14 tablet by [facility] of tablet 00:00: mouth [place] 00 every Medical morning. Branch tamsulosin 2020-0 Yes [id number] .4mg Take 1 [facility] 0.4 mg 24 1-14 capsule by [facility] of hr capsule 00:00: mouth [place] 00 daily. Medical Branch traZODone 2020-0 Yes [id number] 50mg Take 1 [facility] [place] 50 mg 1-14 tablet by [facility] of tablet 00:00: mouth at [place] 00 bedtime. Medical Branch levETIRAcet 2020-0 Yes [id number] 500mg Take 1 [facility] am 500 mg 1-14 tablet by it[facility] o f tablet 00:00: mouth 2 [place] 00 (two) Medical times Branch daily. atorvastati 2020-0 Yes [id number] 80mg Take 1 [facility] n 80 mg 1-14 tablet by it[facility] of tablet 00:00: mouth at [place] 00 bedtime. Medical Branch blood sugar 2020-0 Yes [id number] Use BID, [facility] diagnostic 1-14 DX E11.9 ity o f (BLOOD 00:00: (Brand [place] GLUCOSE 00 upon Medical TEST) strip insurance [facility] approval) gabapentin 2020-0 Yes [id number] 400mg Take 1 [facility] 400 mg 1-14 capsule by it[facility] of capsule 00:00: mouth 3 [place] (three) Medical times Branch daily. Pioglitazon 2020-0 Yes [id number] 1{tbl} Take 1 [facility] e-Metformin 1-14 tablet by [facility] of 15-1,000 mg 00:00: mouth 2 [place] [facility] 00 (two) Medical times Branch daily with meals. QUEtiapine 2020-0 Yes [id number] 100mg Take 1 [facility] 100 mg 1-14 tablet by it[facility] of tablet 00:00: mouth at [place] 00 bedtime. Medical Branch SERTraline 2020-0 Yes [id number] 100mg Take 1 [facility] 100 mg 1-14 tablet by it[facility] of tablet 00:00: mouth [place] 00 every Medical morning. Branch tamsulosin 2020-0 Yes [id number] .4mg Take 1 [facility] 0.4 mg 24 1-14 capsule by it[facility] of hr capsule 00:00: mouth [place] 00 daily. Medical Branch traZODone 2020-0 Yes [id number] 50mg Take 1 [facility] [place] 50 mg 1-14 tablet by [facility] of tablet 00:00: mouth at [place] 00 bedtime. Medical Branch levETIRAcet 2020-0 Yes [id number] 500mg Take 1 [facility] am 500 mg 1-14 tablet by it[facility] o f tablet 00:00: mouth 2 [place] 00 (two) Medical times Branch daily. atorvastati 2020-0 Yes [id number] 80mg Take 1 [facility] n 80 mg 1-14 tablet by it[facility] of tablet 00:00: mouth at [place] 00 bedtime. Medical Branch blood sugar 2020-0 Yes [id number] Use BID, [facility] diagnostic 1-14 DX E11.9 it[facility] o f (BLOOD 00:00: (Brand [place] GLUCOSE 00 upon Medical TEST) strip insurance [facility] approval) gabapentin 2020-0 Yes [id number] 400mg Take 1 [facility] 400 mg 1-14 capsule by it[facility] of capsule 00:00: mouth 3 [place] 00 (three) Medical times Branch daily. Pioglitazon 2020-0 Yes [id number] 1{tbl} Take 1 [facility] e-Metformin 1-14 tablet by [facility] of 15-1,000 mg 00:00: mouth 2 [place] [facility] 00 (two) Medical times Branch daily with meals. QUEtiapine 2020-0 Yes [id number] 100mg Take 1 [facility] 100 mg 1-14 tablet by [facility] of tablet 00:00: mouth at [place] 00 bedtime. Medical Branch SERTraline 2020-0 Yes [id number] 100mg Take 1 [facility] 100 mg 1-14 tablet by [facility] of tablet 00:00: mouth [place] 00 every Medical morning. Branch tamsulosin 2020-0 Yes [id number] .4mg Take 1 [facility] 0.4 mg 24 1-14 capsule by [facility] of hr capsule 00:00: mouth [place] 00 daily. Medical Branch traZODone 2020-0 Yes [id number] 50mg Take 1 [facility] [place] 50 mg 1-14 tablet by [facility] of tablet 00:00: mouth at [place] 00 bedtime. Medical Branch levETIRAcet 2020-0 Yes [id number] 500mg Take 1 [facility] am 500 mg 1-14 tablet by it[facility] o f tablet 00:00: mouth 2 [place] 00 (two) Medical times Branch daily. atorvastati 2020-0 Yes [id number] 80mg Take 1 [facility] n 80 mg 1-14 tablet by it[facility] of tablet 00:00: mouth at [place] 00 bedtime. Medical Branch blood sugar 2020-0 Yes [id number] Use BID, [facility] diagnostic 1-14 DX E11.9 it[facility] o f (BLOOD 00:00: (Brand [place] GLUCOSE 00 upon Medical TEST) strip insurance [facility] approval) gabapentin 2020-0 Yes [id number] 400mg Take 1 [facility] 400 mg 1-14 capsule by it[facility] of capsule 00:00: mouth 3 [place] 00 (three) Medical times Branch daily. Pioglitazon 2020-0 Yes [id number] 1{tbl} Take 1 [facility] e-Metformin 1-14 tablet by [facility] of 15-1,000 mg 00:00: mouth 2 [place] [facility] 00 (two) Medical times Branch daily with meals. QUEtiapine 2020-0 Yes [id number] 100mg Take 1 [facility] 100 mg 1-14 tablet by [facility] of tablet 00:00: mouth at [place] 00 bedtime. Medical Branch SERTraline 2020-0 Yes [id number] 100mg Take 1 [facility] 100 mg 1-14 tablet by it[facility] of tablet 00:00: mouth [place] 00 every Medical morning. Branch tamsulosin 2020-0 Yes [id number] .4mg Take 1 [facility] 0.4 mg 24 1-14 capsule by [facility] of hr capsule 00:00: mouth [place] 00 daily. Medical Branch traZODone 2020-0 Yes [id number] 50mg Take 1 [facility] 50 mg 1-14 tablet by [facility] of tablet 00:00: mouth at [place] 00 bedtime. Medical Branch levETIRAcet 2020-0 Yes [id number] 500mg Take 1 [facility] am 500 mg 1-14 tablet by it[facility] o f tablet 00:00: mouth 2 [place] 00 (two) Medical times Branch daily. atorvastati 2020-0 Yes [id number] 80mg Take 1 [facility] n 80 mg 1-14 tablet by it[facility] of tablet 00:00: mouth at [place] 00 bedtime. Medical Branch blood sugar 2020-0 Yes [id number] Use BID, [facility] diagnostic 1-14 DX E11.9 it[facility] o f (BLOOD 00:00: ([facility] GLUCOSE 00 upon Medical TEST) strip insurance [facility] approval) gabapentin 2020-0 Yes [id number] 400mg Take 1 [facility] 400 mg 1-14 capsule by ity of capsule 00:00: mouth 3 [place] 00 (three) Medical times Branch daily. Pioglitazon 2020-0 Yes [id number] 1{tbl} Take 1 [facility] e-Metformin 1-14 tablet by [facility] of 15-1,000 mg 00:00: mouth 2 [place] [facility] 00 (two) Medical times Branch daily with meals. QUEtiapine 2020-0 Yes [id number] 100mg Take 1 [facility] 100 mg 1-14 tablet by it[facility] of tablet 00:00: mouth at [place] 00 bedtime. Medical Branch SERTraline 2020-0 Yes [id number] 100mg Take 1 [facility] 100 mg 1-14 tablet by ity of tablet 00:00: mouth [place] 00 every Medical morning. Branch tamsulosin 2020-0 Yes [id number] .4mg Take 1 [facility] 0.4 mg 24 1-14 capsule by ity of hr capsule 00:00: mouth [place] 00 daily. Medical Branch traZODone 2020-0 Yes [id number] 50mg Take 1 [facility] [place] 50 mg 1-14 tablet by ity of tablet 00:00: mouth at [place] 00 bedtime. Medical Branch levETIRAcet 2020-0 Yes [id number] 500mg Take 1 [facility] am 500 mg 1-14 tablet by ity o f tablet 00:00: mouth 2 [place] 00 (two) Medical times Branch daily. atorvastati 2020-0 Yes [id number] 80mg Take 1 [facility] n 80 mg 1-14 tablet by ity of tablet 00:00: mouth at [place] 00 bedtime. Medical Branch blood sugar 2020-0 Yes [id number] Use BID, [facility] diagnostic 1-14 DX E11.9 ity o f (BLOOD 00:00: (Brand [place] GLUCOSE 00 upon Medical TEST) strip insurance [facility] approval) gabapentin 2020-0 Yes [id number] 400mg Take 1 [facility] 400 mg 1-14 capsule by ity of capsule 00:00: mouth 3 [place] 00 (three) Medical times Branch daily. Pioglitazon 2020-0 Yes [id number] 1{tbl} Take 1 [facility] e-Metformin 1-14 tablet by ity of 15-1,000 mg 00:00: mouth 2 [place] [facility] 00 (two) Medical times Branch daily with meals. QUEtiapine 2020-0 Yes [id number] 100mg Take 1 [facility] 100 mg 1-14 tablet by ity of tablet 00:00: mouth at [place] 00 bedtime. Medical Branch SERTraline 2020-0 Yes [id number] 100mg Take 1 [facility] 100 mg 1-14 tablet by ity of tablet 00:00: mouth [place] 00 every Medical morning. Branch tamsulosin 2020-0 Yes [id number] .4mg Take 1 [facility] 0.4 mg 24 1-14 capsule by ity of hr capsule 00:00: mouth [place] 00 daily. Medical Branch traZODone 2020-0 Yes [id number] 50mg Take 1 [facility] 50 mg 1-14 tablet by ity of tablet 00:00: mouth at [place] 00 bedtime. Medical Branch levETIRAcet 2020-0 Yes [id number] 500mg Take 1 [facility] am 500 mg 1-14 tablet by ity o f tablet 00:00: mouth 2 [place] 00 (two) Medical times Branch daily. atorvastati 2020-0 Yes [id number] 80mg Take 1 [facility] n 80 mg 1-14 tablet by ity of tablet 00:00: mouth at [place] 00 bedtime. Medical Branch blood sugar 2020-0 Yes [id number] Use BID, [facility] diagnostic 1-14 DX E11.9 ity o f (BLOOD 00:00: (Brand [place] GLUCOSE 00 upon Medical TEST) strip insurance [facility] approval) gabapentin 2020-0 Yes [id number] 400mg Take 1 [facility] 400 mg 1-14 capsule by ity of capsule 00:00: mouth 3 [place] (three) Medical times Branch daily. Pioglitazon 2020-0 Yes [id number] 1{tbl} Take 1 [facility] e-Metformin 1-14 tablet by ity of 15-1,000 mg 00:00: mouth 2 [place] [facility] 00 (two) Medical times Branch daily with meals. QUEtiapine 2020-0 Yes [id number] 100mg Take 1 [facility] 100 mg 1-14 tablet by ity of tablet 00:00: mouth at [place] 00 bedtime. Medical Branch SERTraline 2020-0 Yes [id number] 100mg Take 1 [facility] 100 mg 1-14 tablet by ity of tablet 00:00: mouth [place] 00 every Medical morning. Branch tamsulosin 2020-0 Yes [id number] .4mg Take 1 [facility] 0.4 mg 24 1-14 capsule by ity of hr capsule 00:00: mouth [place] 00 daily. Medical Branch traZODone 2020-0 Yes [id number] 50mg Take 1 [facility] 50 mg 1-14 tablet by ity of tablet 00:00: mouth at [place] 00 bedtime. Medical Branch levETIRAcet 2020-0 Yes [id number] 500mg Take 1 [facility] am 500 mg 1-14 tablet by ity o f tablet 00:00: mouth 2 [place] 00 (two) Medical times Branch daily. atorvastati 2020-0 Yes [id number] 80mg Take 1 [facility] n 80 mg 1-14 tablet by ity of tablet 00:00: mouth at [place] 00 bedtime. Medical Branch blood sugar 2020-0 Yes [id number] Use BID, [facility] diagnostic 1-14 DX E11.9 ity o f (BLOOD 00:00: (Brand [place] GLUCOSE 00 upon Medical TEST) strip insurance [facility] approval) gabapentin 2020-0 Yes [id number] 400mg Take 1 [facility] 400 mg 1-14 capsule by ity of capsule 00:00: mouth 3 (three) Medical times Branch daily. QUEtiapine 2020-0 Yes [id number] 100mg Take 1 [facility] 100 mg 1-14 tablet by ity of tablet 00:00: mouth at [place] 00 bedtime. Medical Branch SERTraline 2020-0 Yes [id number] 100mg Take 1 [facility] 100 mg 1-14 tablet by ity of tablet 00:00: mouth [place] 00 every Medical morning. Branch tamsulosin 2020-0 Yes [id number] .4mg Take 1 [facility] 0.4 mg 24 1-14 capsule by ity of hr capsule 00:00: mouth [place] 00 daily. Medical Branch traZODone 2020-0 Yes [id number] 50mg Take 1 [facility] 50 mg 1-14 tablet by ity of tablet 00:00: mouth at [place] 00 bedtime. Medical Branch levETIRAcet 2020-0 Yes [id number] 500mg Take 1 [facility] am 500 mg 1-14 tablet by ity o f tablet 00:00: mouth 2 (two) Medical times Branch daily. atorvastati 2020-0 Yes [id number] 80mg Take 1 [facility] n 80 mg 1-14 tablet by ity of tablet 00:00: mouth at [place] 00 bedtime. Medical Branch blood sugar 2020-0 Yes [id number] Use BID, [facility] diagnostic 1-14 DX E11.9 ity o f (BLOOD 00:00: (Brand [place] GLUCOSE 00 upon Medical TEST) strip insurance [facility] approval) gabapentin 2020-0 Yes [id number] 400mg Take 1 [facility] 400 mg 1-14 capsule by ity of capsule 00:00: mouth 3 [place] (three) Medical times Branch daily. QUEtiapine 2020-0 Yes [id number] 100mg Take 1 [facility] 100 mg 1-14 tablet by ity of tablet 00:00: mouth at [place] 00 bedtime. Medical Branch SERTraline 2020-0 Yes [id number] 100mg Take 1 [facility] 100 mg 1-14 tablet by ity of tablet 00:00: mouth [place] 00 every Medical morning. Branch tamsulosin 2020-0 Yes [id number] .4mg Take 1 [facility] 0.4 mg 24 1-14 capsule by ity of hr capsule 00:00: mouth [place] 00 daily. Medical Branch traZODone 2020-0 Yes [id number] 50mg Take 1 [facility] 50 mg 1-14 tablet by ity of tablet 00:00: mouth at [place] 00 bedtime. Medical Branch levETIRAcet 2020-0 Yes [id number] 500mg Take 1 [facility] am 500 mg 1-14 tablet by ity o f tablet 00:00: mouth 2 (two) Medical times Branch daily. atorvastati 2020-0 Yes [id number] 80mg Take 1 [facility] n 80 mg 1-14 tablet by ity of tablet 00:00: mouth at [place] 00 bedtime. Medical Branch blood sugar 2020-0 Yes [id number] Use BID, [facility] diagnostic 1-14 DX E11.9 ity o f (BLOOD 00:00: (Brand [place] GLUCOSE 00 upon Medical TEST) strip insurance [facility] approval) gabapentin 2020-0 Yes [id number] 400mg Take 1 [facility] 400 mg 1-14 capsule by ity of capsule 00:00: mouth 3 (three) Medical times Branch daily. QUEtiapine 2020-0 Yes [id number] 100mg Take 1 [facility] 100 mg 1-14 tablet by ity of tablet 00:00: mouth at [place] 00 bedtime. Medical Branch SERTraline 2020-0 Yes [id number] 100mg Take 1 [facility] 100 mg 1-14 tablet by ity of tablet 00:00: mouth [place] 00 every Medical morning. Branch tamsulosin 2020-0 Yes [id number] .4mg Take 1 [facility] 0.4 mg 24 1-14 capsule by ity of hr capsule 00:00: mouth [place] 00 daily. Medical Branch traZODone 2020-0 Yes [id number] 50mg Take 1 [facility] [place] 50 mg 1-14 tablet by ity of tablet 00:00: mouth at [place] 00 bedtime. Medical Branch levETIRAcet 2020-0 Yes [id number] 500mg Take 1 [facility] am 500 mg 1-14 tablet by ity o f tablet 00:00: mouth 2 (two) Medical times Branch daily. atorvastati 2020-0 Yes [id number] 80mg Take 1 [facility] n 80 mg 1-14 tablet by ity of tablet 00:00: mouth at [place] 00 bedtime. Medical Branch blood sugar 2020-0 Yes [id number] Use BID, [facility] diagnostic 1-14 DX E11.9 ity o f (BLOOD 00:00: (Brand [place] GLUCOSE 00 upon Medical TEST) strip insurance [facility] approval) gabapentin 2020-0 Yes [id number] 400mg Take 1 [facility] 400 mg 1-14 capsule by ity of capsule 00:00: mouth 3 (three) Medical times Branch daily. QUEtiapine 2020-0 Yes [id number] 100mg Take 1 [facility] 100 mg 1-14 tablet by ity of tablet 00:00: mouth at [place] 00 bedtime. Medical Branch SERTraline 2020-0 Yes [id number] 100mg Take 1 [facility] 100 mg 1-14 tablet by ity of tablet 00:00: mouth [place] 00 every Medical morning. Branch tamsulosin 2020-0 Yes [id number] .4mg Take 1 [facility] 0.4 mg 24 1-14 capsule by ity of hr capsule 00:00: mouth daily. Medical Branch traZODone 2020-0 Yes [id number] 50mg Take 1 [facility] [place] 50 mg 1-14 tablet by ity of tablet 00:00: mouth at [place] 00 bedtime. Medical Branch levETIRAcet 2020-0 Yes [id number] 500mg Take 1 [facility] am 500 mg 1-14 tablet by ity o f tablet 00:00: mouth 2 (two) Medical times Branch daily. atorvastati 2020-0 Yes [id number] 80mg Take 1 [facility] n 80 mg 1-14 tablet by ity of tablet 00:00: mouth at [place] 00 bedtime. Medical Branch blood sugar 2020-0 Yes [id number] Use BID, [facility] diagnostic 1-14 DX E11.9 ity o f (BLOOD 00:00: (Brand [place] GLUCOSE 00 upon Medical TEST) strip insurance [facility] approval) gabapentin 2020-0 Yes [id number] 400mg Take 1 [facility] 400 mg 1-14 capsule by ity of capsule 00:00: mouth 3 (three) Medical times Branch daily. QUEtiapine 2020-0 Yes [id number] 100mg Take 1 [facility] 100 mg 1-14 tablet by ity of tablet 00:00: mouth at [place] 00 bedtime. Medical Branch SERTraline 2020-0 Yes [id number] 100mg Take 1 [facility] 100 mg 1-14 tablet by ity of tablet 00:00: mouth [place] 00 every Medical morning. Branch tamsulosin 2020-0 Yes [id number] .4mg Take 1 [facility] 0.4 mg 24 1-14 capsule by ity of hr capsule 00:00: mouth [place] 00 daily. Medical Branch traZODone 2020-0 Yes [id number] 50mg Take 1 [facility] [place] 50 mg 1-14 tablet by ity of tablet 00:00: mouth at [place] 00 bedtime. Medical Branch levETIRAcet 2020-0 Yes [id number] 500mg Take 1 [facility] am 500 mg 1-14 tablet by ity o f tablet 00:00: mouth 2 (two) Medical times Branch daily. atorvastati 2020-0 Yes [id number] 80mg Take 1 [facility] n 80 mg 1-14 tablet by ity of tablet 00:00: mouth at [place] bedtime. Medical Branch blood sugar 2020-0 Yes [id number] Use BID, [facility] diagnostic 1-14 DX E11.9 ity o f (BLOOD 00:00: (Brand [place] GLUCOSE 00 upon Medical TEST) strip insurance [facility] approval) gabapentin 2020-0 Yes [id number] 400mg Take 1 [facility] 400 mg 1-14 capsule by ity of capsule 00:00: mouth 3 (three) Medical times Branch daily. QUEtiapine 2020-0 Yes [id number] 100mg Take 1 [facility] 100 mg 1-14 tablet by ity of tablet 00:00: mouth at [place] 00 bedtime. Medical Branch SERTraline 2020-0 Yes [id number] 100mg Take 1 [facility] 100 mg 1-14 tablet by ity of tablet 00:00: mouth [place] 00 every Medical morning. Branch tamsulosin 2020-0 Yes [id number] .4mg Take 1 [facility] 0.4 mg 24 1-14 capsule by ity of hr capsule 00:00: mouth 00 daily. Medical Branch traZODone 2020-0 Yes [id number] 50mg Take 1 [facility] [place] 50 mg 1-14 tablet by ity of tablet 00:00: mouth at [place] [address] bedtime. Medical Branch levETIRAcet 2020-0 Yes [id number] 500mg Take 1 [facility] am 500 mg 1-14 tablet by ity o f tablet 00:00: mouth 2 [place] 00 (two) Medical times Branch daily. atorvastati 2020-0 Yes [id number] 80mg Take 1 [facility] n 80 mg 1-14 tablet by ity of tablet 00:00: mouth at [place] 00 bedtime. Medical Branch blood sugar 2020-0 Yes [id number] Use BID, [facility] diagnostic 1-14 DX E11.9 ity o f (BLOOD 00:00: (Brand [place] GLUCOSE 00 upon Medical TEST) strip insurance [facility] approval) gabapentin 2020-0 Yes [id number] 400mg Take 1 [facility] 400 mg 1-14 capsule by ity of capsule 00:00: mouth 3 (three) Medical times Branch daily. QUEtiapine 2020-0 Yes [id number] 100mg Take 1 [facility] 100 mg 1-14 tablet by ity of tablet 00:00: mouth at [place] 00 bedtime. Medical Branch SERTraline 2020-0 Yes [id number] 100mg Take 1 [facility] 100 mg 1-14 tablet by ity of tablet 00:00: mouth 00 every Medical morning. Branch tamsulosin 2020-0 Yes [id number] .4mg Take 1 [facility] 0.4 mg 24 1-14 capsule by ity of hr capsule 00:00: mouth [place] 00 daily. Medical Branch traZODone 2020-0 Yes [id number] 50mg Take 1 [facility] [place] 50 mg 1-14 tablet by ity of tablet 00:00: mouth at [place] 00 bedtime. Medical Branch levETIRAcet 2020-0 Yes [id number] 500mg Take 1 [facility] am 500 mg 1-14 tablet by ity o f tablet 00:00: mouth 2 (two) Medical times Branch daily. atorvastati 2020-0 Yes [id number] 80mg Take 1 [facility] n 80 mg 1-14 tablet by ity of tablet 00:00: mouth at [place] 00 bedtime. Medical Branch blood sugar 2020-0 Yes [id number] Use BID, [facility] diagnostic 1-14 DX E11.9 ity o f (BLOOD 00:00: (Brand [place] GLUCOSE 00 upon Medical TEST) strip insurance [facility] approval) gabapentin 2020-0 Yes [id number] 400mg Take 1 [facility] 400 mg 1-14 capsule by ity of capsule 00:00: mouth 3 (three) Medical times Branch daily. QUEtiapine 2020-0 Yes [id number] 100mg Take 1 [facility] 100 mg 1-14 tablet by ity of tablet 00:00: mouth at [place] 00 bedtime. Medical Branch SERTraline 2020-0 Yes [id number] 100mg Take 1 [facility] 100 mg 1-14 tablet by ity of tablet 00:00: mouth [place] 00 every Medical morning. Branch tamsulosin 2020-0 Yes [id number] .4mg Take 1 [facility] 0.4 mg 24 1-14 capsule by ity of hr capsule 00:00: mouth [place] 00 daily. Medical Branch traZODone 2020-0 Yes [id number] 50mg Take 1 [facility] [place] 50 mg 1-14 tablet by ity of tablet 00:00: mouth at [place] 00 bedtime. Medical Branch levETIRAcet 2020-0 Yes [id number] 500mg Take 1 [facility] am 500 mg 1-14 tablet by ity o f tablet 00:00: mouth 2 (two) Medical times Branch daily. atorvastati 2020-0 Yes [id number] 80mg Take 1 [facility] n 80 mg 1-14 tablet by ity of tablet 00:00: mouth at [place] 00 bedtime. Medical Branch blood sugar 2020-0 Yes [id number] Use BID, [facility] diagnostic 1-14 DX E11.9 ity o f (BLOOD 00:00: (Brand [place] GLUCOSE 00 upon Medical TEST) strip insurance [facility] approval) gabapentin 2020-0 Yes [id number] 400mg Take 1 [facility] 400 mg 1-14 capsule by ity of capsule 00:00: mouth 3 (three) Medical times Branch daily. QUEtiapine 2020-0 Yes [id number] 100mg Take 1 [facility] 100 mg 1-14 tablet by ity of tablet 00:00: mouth at [place] 00 bedtime. Medical Branch SERTraline 2020-0 Yes [id number] 100mg Take 1 [facility] 100 mg 1-14 tablet by ity of tablet 00:00: mouth [place] 00 every Medical morning. Branch tamsulosin 2020-0 Yes [id number] .4mg Take 1 [facility] 0.4 mg 24 1-14 capsule by ity of hr capsule 00:00: mouth [place] 00 daily. Medical Branch traZODone 2020-0 Yes [id number] 50mg Take 1 [facility] [place] 50 mg 1-14 tablet by ity of tablet 00:00: mouth at [place] [address] bedtime. Medical Branch levETIRAcet 2020-0 Yes [id number] 500mg Take 1 [facility] am 500 mg 1-14 tablet by ity o f tablet 00:00: mouth 2 00 (two) Medical times Branch daily. atorvastati 2020-0 Yes [id number] 80mg Take 1 [facility] n 80 mg 1-14 tablet by ity of tablet 00:00: mouth at [place] 00 bedtime. Medical Branch blood sugar 2020-0 Yes [id number] Use BID, [facility] diagnostic 1-14 DX E11.9 ity o f (BLOOD 00:00: (Brand [place] GLUCOSE 00 upon Medical TEST) strip insurance [facility] approval) gabapentin 2020-0 Yes [id number] 400mg Take 1 [facility] 400 mg 1-14 capsule by ity of capsule 00:00: mouth 3 (three) Medical times Branch daily. QUEtiapine 2020-0 Yes [id number] 100mg Take 1 [facility] 100 mg 1-14 tablet by ity of tablet 00:00: mouth at [place] 00 bedtime. Medical Branch SERTraline 2020-0 Yes [id number] 100mg Take 1 [facility] 100 mg 1-14 tablet by ity of tablet 00:00: mouth [place] 00 every Medical morning. Branch tamsulosin 2020-0 Yes [id number] .4mg Take 1 [facility] 0.4 mg 24 1-14 capsule by ity of hr capsule 00:00: mouth [place] 00 daily. Medical Branch traZODone 2020-0 Yes [id number] 50mg Take 1 [facility] 50 mg 1-14 tablet by ity of tablet 00:00: mouth at [place] 00 bedtime. Medical Branch levETIRAcet 2020-0 Yes [id number] 500mg Take 1 [facility] am 500 mg 1-14 tablet by ity o f tablet 00:00: mouth 2 (two) Medical times Branch daily. atorvastati 2020-0 Yes [id number] 80mg Take 1 [facility] n 80 mg 1-14 tablet by ity of tablet 00:00: mouth at [place] 00 bedtime. [facility] blood sugar 2020-0 Yes [id number] Use BID, [facility] diagnostic 1-14 DX E11.9 ity o f (BLOOD 00:00: (Brand [place] GLUCOSE 00 upon Medical TEST) strip insurance [facility] approval) gabapentin 2020-0 Yes [id number] 400mg Take 1 [facility] 400 mg 1-14 capsule by ity of capsule 00:00: mouth 3 [place] 00 (three) Medical times Branch daily. QUEtiapine 2020-0 Yes [id number] 100mg Take 1 [facility] 100 mg 1-14 tablet by ity of tablet 00:00: mouth at [place] 00 bedtime. Medical Branch SERTraline 2020-0 Yes [id number] 100mg Take 1 [facility] 100 mg 1-14 tablet by ity of tablet 00:00: mouth [place] 00 every Medical morning. Branch tamsulosin 2020-0 Yes [id number] .4mg Take 1 [facility] 0.4 mg 24 1-14 capsule by ity of hr capsule 00:00: mouth [place] 00 daily. Medical Branch traZODone 2020-0 Yes [id number] 50mg Take 1 [facility] [place] 50 mg 1-14 tablet by ity of tablet 00:00: mouth at [place] [address] bedtime. Medical Branch levETIRAcet 2020-0 Yes [id number] 500mg Take 1 [facility] am 500 mg 1-14 tablet by ity o f tablet 00:00: mouth 2 [place] 00 (two) Medical times Branch daily. atorvastati 2020-0 Yes [id number] 80mg Take 1 [facility] n 80 mg 1-14 tablet by ity of tablet 00:00: mouth at [place] 00 bedtime. [facility] blood sugar 2020-0 Yes [id number] Use BID, [facility] diagnostic 1-14 DX E11.9 ity o f (BLOOD 00:00: (Brand [place] GLUCOSE 00 upon Medical TEST) strip insurance [facility] approval) gabapentin 2020-0 Yes [id number] 400mg Take 1 [facility] 400 mg 1-14 capsule by ity of capsule 00:00: mouth 3 [place] 00 (three) Medical times Branch daily. QUEtiapine 2020-0 Yes [id number] 100mg Take 1 [facility] 100 mg 1-14 tablet by ity of tablet 00:00: mouth at [place] 00 bedtime. Medical [facility] SERTraline 2020-0 Yes [id number] 100mg Take 1 [facility] 100 mg 1-14 tablet by ity of tablet 00:00: mouth [place] 00 every Medical morning. Branch tamsulosin 2020-0 Yes [id number] .4mg Take 1 [facility] 0.4 mg 24 1-14 capsule by ity of hr capsule 00:00: mouth [place] 00 daily. [facility] traZODone 2020-0 Yes [id number] 50mg Take 1 [facility] 50 mg 1-14 tablet by ity of tablet 00:00: mouth at [place] 00 bedtime. [facility] levETIRAcet 2020-0 Yes [id number] 500mg Take 1 [facility] am 500 mg 1-14 tablet by ity o f tablet 00:00: mouth 2 (two) Medical times Branch daily. atorvastati 2020-0 Yes [id number] 80mg Take 1 [facility] n 80 mg 1-14 tablet by ity of tablet 00:00: mouth at [place] 00 bedtime. [facility] blood sugar 2020-0 Yes [id number] Use BID, [facility] diagnostic 1-14 DX E11.9 ity o f (BLOOD 00:00: (Brand [place] GLUCOSE 00 upon Medical TEST) strip insurance [facility] approval) gabapentin 2020-0 Yes [id number] 400mg Take 1 [facility] 400 mg 1-14 capsule by ity of capsule 00:00: mouth 3 (three) Medical times Branch daily. QUEtiapine 2020-0 Yes [id number] 100mg Take 1 [facility] 100 mg 1-14 tablet by ity of tablet 00:00: mouth at [place] 00 bedtime. Medical [facility] SERTraline 2020-0 Yes [id number] 100mg Take 1 [facility] 100 mg 1-14 tablet by ity of tablet 00:00: mouth [place] 00 every Medical morning. Branch tamsulosin 2020-0 Yes [id number] .4mg Take 1 [facility] 0.4 mg 24 1-14 capsule by ity of hr capsule 00:00: mouth [place] 00 daily. Medical Branch traZODone 2020-0 Yes [id number] 50mg Take 1 [facility] [place] 50 mg 1-14 tablet by ity of tablet 00:00: mouth at [place] 00 bedtime. [facility] levETIRAcet 2020-0 Yes [id number] 500mg Take 1 [facility] am 500 mg 1-14 tablet by ity o f tablet 00:00: mouth 2 00 (two) Medical times Branch daily. atorvastati 2020-0 Yes [id number] 80mg Take 1 [facility] n 80 mg 1-14 tablet by ity of tablet 00:00: mouth at [place] 00 bedtime. [facility] blood sugar 2020-0 Yes [id number] Use BID, [facility] diagnostic 1-14 DX E11.9 ity o f (BLOOD 00:00: (Brand [place] GLUCOSE 00 upon Medical TEST) strip insurance [facility] approval) gabapentin 2020-0 Yes [id number] 400mg Take 1 [facility] 400 mg 1-14 capsule by ity of capsule 00:00: mouth 3 00 (three) Medical times Branch daily. QUEtiapine 2020-0 Yes [id number] 100mg Take 1 [facility] 100 mg 1-14 tablet by ity of tablet 00:00: mouth at [place] 00 bedtime. Medical [facility] SERTraline 2020-0 Yes [id number] 100mg Take 1 [facility] 100 mg 1-14 tablet by ity of tablet 00:00: mouth [place] 00 every Medical morning. Branch tamsulosin 2020-0 Yes [id number] .4mg Take 1 [facility] 0.4 mg 24 1-14 capsule by ity of hr capsule 00:00: mouth [place] 00 daily. [facility] traZODone 2020-0 Yes [id number] 50mg Take 1 [facility] [place] 50 mg 1-14 tablet by ity of tablet 00:00: mouth at [place] 00 bedtime. [facility] levETIRAcet 2020-0 Yes [id number] 500mg Take 1 [facility] am 500 mg 1-14 tablet by ity o f tablet 00:00: mouth 2 [place] (two) Medical times Branch daily. atorvastati 2020-0 Yes [id number] 80mg Take 1 [facility] n 80 mg 1-14 tablet by ity of tablet 00:00: mouth at [place] 00 bedtime. Medical Branch blood sugar 2020-0 Yes [id number] Use BID, [facility] diagnostic 1-14 DX E11.9 ity o f (BLOOD 00:00: (Brand [place] GLUCOSE 00 upon Medical TEST) strip insurance [facility] approval) gabapentin 2020-0 Yes [id number] 400mg Take 1 [facility] 400 mg 1-14 capsule by ity of capsule 00:00: mouth 3 [place] 00 (three) Medical times Branch daily. QUEtiapine 2020-0 Yes [id number] 100mg Take 1 [facility] 100 mg 1-14 tablet by ity of tablet 00:00: mouth at [place] 00 bedtime. Medical Branch SERTraline 2020-0 Yes [id number] 100mg Take 1 [facility] 100 mg 1-14 tablet by ity of tablet 00:00: mouth [place] 00 every Medical morning. Branch tamsulosin 2020-0 Yes [id number] .4mg Take 1 [facility] 0.4 mg 24 1-14 capsule by ity of hr capsule 00:00: mouth [place] 00 daily. Medical [facility] traZODone 2020-0 Yes [id number] 50mg Take 1 [facility] [place] 50 mg 1-14 tablet by ity of tablet 00:00: mouth at [place] 00 bedtime. Medical [facility] levETIRAcet 2020-0 Yes [id number] 500mg Take 1 [facility] am 500 mg 1-14 tablet by ity o f tablet 00:00: mouth 2 00 (two) Medical times Branch daily. atorvastati 2020-0 Yes [id number] 80mg Take 1 [facility] n 80 mg 1-14 tablet by ity of tablet 00:00: mouth at [place] 00 bedtime. Medical [facility] blood sugar 2020-0 Yes [id number] Use BID, [facility] diagnostic 1-14 DX E11.9 ity o f (BLOOD 00:00: (Brand [place] GLUCOSE 00 upon Medical TEST) strip insurance [facility] approval) gabapentin 2020-0 Yes [id number] 400mg Take 1 [facility] 400 mg 1-14 capsule by ity of capsule 00:00: mouth 3 (three) Medical times Branch daily. QUEtiapine 2020-0 Yes [id number] 100mg Take 1 [facility] 100 mg 1-14 tablet by ity of tablet 00:00: mouth at [place] 00 bedtime. Medical [facility] SERTraline 2020-0 Yes [id number] 100mg Take 1 [facility] 100 mg 1-14 tablet by ity of tablet 00:00: mouth [place] 00 every Medical morning. Branch tamsulosin 2020-0 Yes [id number] .4mg Take 1 [facility] 0.4 mg 24 1-14 capsule by ity of hr capsule 00:00: mouth [place] 00 daily. Medical Branch traZODone 2020-0 Yes [id number] 50mg Take 1 [facility] [place] 50 mg 1-14 tablet by ity of tablet 00:00: mouth at [place] 00 bedtime. Medical Branch levETIRAcet 2020-0 Yes [id number] 500mg Take 1 [facility] am 500 mg 1-14 tablet by ity o f tablet 00:00: mouth 2 (two) Medical times Branch daily. atorvastati 2020-0 Yes [id number] 80mg Take 1 [facility] n 80 mg 1-14 tablet by ity of tablet 00:00: mouth at [place] 00 bedtime. Medical Branch blood sugar 2020-0 Yes [id number] Use BID, [facility] diagnostic 1-14 DX E11.9 ity o f (BLOOD 00:00: (Brand [place] GLUCOSE 00 upon Medical TEST) strip insurance [facility] approval) gabapentin 2020-0 Yes [id number] 400mg Take 1 [facility] 400 mg 1-14 capsule by ity of capsule 00:00: mouth 3 [place] 00 (three) Medical times Branch daily. QUEtiapine 2020-0 Yes [id number] 100mg Take 1 [facility] 100 mg 1-14 tablet by ity of tablet 00:00: mouth at [place] 00 bedtime. Medical Branch SERTraline 2020-0 Yes [id number] 100mg Take 1 [facility] 100 mg 1-14 tablet by ity of tablet 00:00: mouth [place] 00 every Medical morning. Branch tamsulosin 2020-0 Yes [id number] .4mg Take 1 [facility] 0.4 mg 24 1-14 capsule by ity of hr capsule 00:00: mouth [place] 00 daily. [facility] traZODone 2020-0 Yes [id number] 50mg Take 1 [facility] 50 mg 1-14 tablet by ity of tablet 00:00: mouth at [place] 00 bedtime. [facility] levETIRAcet 2020-0 Yes [id number] 500mg Take 1 [facility] am 500 mg 1-14 tablet by ity o f tablet 00:00: mouth 2 [place] 00 (two) Medical times Branch daily. atorvastati 2020-0 Yes [id number] 80mg Take 1 [facility] n 80 mg 1-14 tablet by ity of tablet 00:00: mouth at [place] 00 bedtime. Medical Branch blood sugar 2020-0 Yes [id number] Use BID, [facility] diagnostic 1-14 DX E11.9 ity o f (BLOOD 00:00: (Brand [place] GLUCOSE 00 upon Medical TEST) strip insurance [facility] approval) gabapentin 2020-0 Yes [id number] 400mg Take 1 [facility] 400 mg 1-14 capsule by ity of capsule 00:00: mouth 3 [place] 00 (three) Medical times Branch daily. QUEtiapine 2020-0 Yes [id number] 100mg Take 1 [facility] 100 mg 1-14 tablet by ity of tablet 00:00: mouth at [place] 00 bedtime. Medical Branch SERTraline 2020-0 Yes [id number] 100mg Take 1 [facility] 100 mg 1-14 tablet by ity of tablet 00:00: mouth [place] 00 every Medical morning. Branch tamsulosin 2020-0 Yes [id number] .4mg Take 1 [facility] 0.4 mg 24 1-14 capsule by ity of hr capsule 00:00: mouth [place] 00 daily. Medical Branch traZODone 2020-0 Yes [id number] 50mg Take 1 [facility] [place] 50 mg 1-14 tablet by ity of tablet 00:00: mouth at [place] 00 bedtime. Medical [facility] levETIRAcet 2020-0 Yes [id number] 500mg Take 1 [facility] am 500 mg 1-14 tablet by ity o f tablet 00:00: mouth 2 00 (two) Medical times Branch daily. atorvastati 2020-0 Yes [id number] 80mg Take 1 [facility] n 80 mg 1-14 tablet by ity of tablet 00:00: mouth at [place] 00 bedtime. [facility] blood sugar 2020-0 Yes [id number] Use BID, [facility] diagnostic 1-14 DX E11.9 ity o f (BLOOD 00:00: (Brand [place] GLUCOSE 00 upon Medical TEST) strip insurance [facility] approval) gabapentin 2020-0 Yes [id number] 400mg Take 1 [facility] 400 mg 1-14 capsule by ity of capsule 00:00: mouth 3 [place] (three) Medical times Branch daily. QUEtiapine 2020-0 Yes [id number] 100mg Take 1 [facility] 100 mg 1-14 tablet by ity of tablet 00:00: mouth at [place] 00 bedtime. Medical Branch SERTraline 2020-0 Yes [id number] 100mg Take 1 [facility] 100 mg 1-14 tablet by ity of tablet 00:00: mouth [place] 00 every Medical morning. Branch tamsulosin 2020-0 Yes [id number] .4mg Take 1 [facility] 0.4 mg 24 1-14 capsule by ity of hr capsule 00:00: mouth [place] 00 daily. Medical Branch traZODone 2020-0 Yes [id number] 50mg Take 1 [facility] [place] 50 mg 1-14 tablet by ity of tablet 00:00: mouth at [place] 00 bedtime. Medical Branch levETIRAcet 2020-0 Yes [id number] 500mg Take 1 [facility] am 500 mg 1-14 tablet by ity o f tablet 00:00: mouth 2 [place] (two) Medical times Branch daily. atorvastati 2020-0 Yes [id number] 80mg Take 1 [facility] n 80 mg 1-14 tablet by ity of tablet 00:00: mouth at [place] 00 bedtime. Medical Branch blood sugar 2020-0 Yes [id number] Use BID, [facility] diagnostic 1-14 DX E11.9 ity o f (BLOOD 00:00: (Brand [place] GLUCOSE 00 upon Medical TEST) strip insurance [facility] approval) gabapentin 2020-0 Yes [id number] 400mg Take 1 [facility] 400 mg 1-14 capsule by ity of capsule 00:00: mouth 3 (three) Medical times Branch daily. QUEtiapine 2020-0 Yes [id number] 100mg Take 1 [facility] 100 mg 1-14 tablet by ity of tablet 00:00: mouth at [place] 00 bedtime. Medical Branch SERTraline 2020-0 Yes [id number] 100mg Take 1 [facility] 100 mg 1-14 tablet by ity of tablet 00:00: mouth [place] 00 every Medical morning. Branch tamsulosin 2020-0 Yes [id number] .4mg Take 1 [facility] 0.4 mg 24 1-14 capsule by ity of hr capsule 00:00: mouth 00 daily. Medical Branch traZODone 2020-0 Yes [id number] 50mg Take 1 [facility] [place] 50 mg 1-14 tablet by ity of tablet 00:00: mouth at [place] 00 bedtime. Medical Branch levETIRAcet 2020-0 Yes [id number] 500mg Take 1 [facility] am 500 mg 1-14 tablet by ity o f tablet 00:00: mouth 2 (two) Medical times Branch daily. atorvastati 2020-0 Yes [id number] 80mg Take 1 [facility] n 80 mg 1-14 tablet by ity of tablet 00:00: mouth at [place] 00 bedtime. Medical Branch blood sugar 2020-0 Yes [id number] Use BID, [facility] diagnostic 1-14 DX E11.9 ity o f (BLOOD 00:00: ([facility] GLUCOSE 00 upon Medical TEST) strip insurance [facility] approval) gabapentin 2020-0 Yes [id number] 400mg Take 1 [facility] 400 mg 1-14 capsule by ity of capsule 00:00: mouth 3 (three) Medical times Branch daily. QUEtiapine 2020-0 Yes [id number] 100mg Take 1 [facility] 100 mg 1-14 tablet by ity of tablet 00:00: mouth at [place] 00 bedtime. Medical Branch SERTraline 2020-0 Yes [id number] 100mg Take 1 [facility] 100 mg 1-14 tablet by ity of tablet 00:00: mouth [place] 00 every Medical morning. Branch tamsulosin 2020-0 Yes [id number] .4mg Take 1 [facility] 0.4 mg 24 1-14 capsule by ity of hr capsule 00:00: mouth [place] 00 daily. Medical Branch traZODone 2020-0 Yes [id number] 50mg Take 1 [facility] [place] 50 mg 1-14 tablet by ity of tablet 00:00: mouth at [place] 00 bedtime. Medical Branch levETIRAcet 2020-0 Yes [id number] 500mg Take 1 [facility] am 500 mg 1-14 tablet by ity o f tablet 00:00: mouth 2 (two) Medical times Branch daily. atorvastati 2020-0 Yes [id number] 80mg Take 1 [facility] n 80 mg 1-14 tablet by ity of tablet 00:00: mouth at [place] 00 bedtime. Medical Branch blood sugar 2020-0 Yes [id number] Use BID, [facility] diagnostic 1-14 DX E11.9 ity o f (BLOOD 00:00: (Brand [place] GLUCOSE 00 upon Medical TEST) strip insurance [facility] approval) gabapentin 2020-0 Yes [id number] 400mg Take 1 [facility] 400 mg 1-14 capsule by ity of capsule 00:00: mouth 3 [place] (three) Medical times Branch daily. QUEtiapine 2020-0 Yes [id number] 100mg Take 1 [facility] 100 mg 1-14 tablet by ity of tablet 00:00: mouth at [place] 00 bedtime. Medical Branch SERTraline 2020-0 Yes [id number] 100mg Take 1 [facility] 100 mg 1-14 tablet by ity of tablet 00:00: mouth [place] 00 every Medical morning. Branch tamsulosin 2020-0 Yes [id number] .4mg Take 1 [facility] 0.4 mg 24 1-14 capsule by ity of hr capsule 00:00: mouth 00 daily. Medical Branch traZODone 2020-0 Yes [id number] 50mg Take 1 [facility] [place] 50 mg 1-14 tablet by ity of tablet 00:00: mouth at [place] 00 bedtime. Medical Branch levETIRAcet 2020-0 Yes [id number] 500mg Take 1 [facility] am 500 mg 1-14 tablet by ity o f tablet 00:00: mouth 2 (two) Medical times Branch daily. atorvastati 2020-0 Yes [id number] 80mg Take 1 [facility] n 80 mg 1-14 tablet by ity of tablet 00:00: mouth at [place] 00 bedtime. Medical Branch blood sugar 2020-0 Yes [id number] Use BID, [facility] diagnostic 1-14 DX E11.9 ity o f (BLOOD 00:00: (Brand [place] GLUCOSE 00 upon Medical TEST) strip insurance [facility] approval) gabapentin 2020-0 Yes [id number] 400mg Take 1 [facility] 400 mg 1-14 capsule by ity of capsule 00:00: mouth 3 00 (three) Medical times Branch daily. QUEtiapine 2020-0 Yes [id number] 100mg Take 1 [facility] 100 mg 1-14 tablet by ity of tablet 00:00: mouth at [place] 00 bedtime. Medical Branch SERTraline 2020-0 Yes [id number] 100mg Take 1 [facility] 100 mg 1-14 tablet by ity of tablet 00:00: mouth [place] 00 every Medical morning. Branch tamsulosin 2020-0 Yes [id number] .4mg Take 1 [facility] 0.4 mg 24 1-14 capsule by ity of hr capsule 00:00: mouth [place] 00 daily. Medical Branch traZODone 2020-0 Yes [id number] 50mg Take 1 [facility] [place] 50 mg 1-14 tablet by ity of tablet 00:00: mouth at [place] 00 bedtime. Medical Branch levETIRAcet 2020-0 Yes [id number] 500mg Take 1 [facility] am 500 mg 1-14 tablet by ity o f tablet 00:00: mouth 2 (two) Medical times Branch daily. atorvastati 2020-0 Yes [id number] 80mg Take 1 [facility] n 80 mg 1-14 tablet by ity of tablet 00:00: mouth at [place] 00 bedtime. Medical Branch blood sugar 2020-0 Yes [id number] Use BID, [facility] diagnostic 1-14 DX E11.9 ity o f (BLOOD 00:00: (Brand [place] GLUCOSE 00 upon Medical TEST) strip insurance [facility] approval) gabapentin 2020-0 Yes [id number] 400mg Take 1 [facility] 400 mg 1-14 capsule by ity of capsule 00:00: mouth 3 (three) Medical times Branch daily. QUEtiapine 2020-0 Yes [id number] 100mg Take 1 [facility] 100 mg 1-14 tablet by ity of tablet 00:00: mouth at [place] 00 bedtime. Medical Branch SERTraline 2020-0 Yes [id number] 100mg Take 1 [facility] 100 mg 1-14 tablet by ity of tablet 00:00: mouth [place] 00 every Medical morning. Branch tamsulosin 2020-0 Yes [id number] .4mg Take 1 [facility] 0.4 mg 24 1-14 capsule by ity of hr capsule 00:00: mouth [place] 00 daily. Medical Branch traZODone 2020-0 Yes [id number] 50mg Take 1 [facility] [place] 50 mg 1-14 tablet by ity of tablet 00:00: mouth at [place] 00 bedtime. Medical Branch levETIRAcet 2020-0 Yes [id number] 500mg Take 1 [facility] am 500 mg 1-14 tablet by ity o f tablet 00:00: mouth 2 [place] (two) Medical times Branch daily. atorvastati 2020-0 Yes [id number] 80mg Take 1 [facility] n 80 mg 1-14 tablet by ity of tablet 00:00: mouth at [place] 00 bedtime. Medical Branch blood sugar 2020-0 Yes [id number] Use BID, [facility] diagnostic 1-14 DX E11.9 ity o f (BLOOD 00:00: (Brand [place] GLUCOSE 00 upon Medical TEST) strip insurance [facility] approval) gabapentin 2020-0 Yes [id number] 400mg Take 1 [facility] 400 mg 1-14 capsule by ity of capsule 00:00: mouth 3 [place] (three) Medical times Branch daily. QUEtiapine 2020-0 Yes [id number] 100mg Take 1 [facility] 100 mg 1-14 tablet by ity of tablet 00:00: mouth at [place] 00 bedtime. Medical Branch SERTraline 2020-0 Yes [id number] 100mg Take 1 [facility] 100 mg 1-14 tablet by ity of tablet 00:00: mouth [place] 00 every Medical morning. Branch tamsulosin 2020-0 Yes [id number] .4mg Take 1 [facility] 0.4 mg 24 1-14 capsule by ity of hr capsule 00:00: mouth 00 daily. Medical Branch traZODone 2020-0 Yes [id number] 50mg Take 1 [facility] [place] 50 mg 1-14 tablet by ity of tablet 00:00: mouth at [place] 00 bedtime. Medical Branch levETIRAcet 2020-0 Yes [id number] 500mg Take 1 [facility] am 500 mg 1-14 tablet by ity o f tablet 00:00: mouth 2 [place] 00 (two) Medical times Branch daily. atorvastati 2020-0 Yes [id number] 80mg Take 1 [facility] n 80 mg 1-14 tablet by ity of tablet 00:00: mouth at [place] 00 bedtime. Medical Branch blood sugar 2020-0 Yes [id number] Use BID, [facility] diagnostic 1-14 DX E11.9 ity o f (BLOOD 00:00: (Brand [place] GLUCOSE 00 upon Medical TEST) strip insurance [facility] approval) gabapentin 2020-0 Yes [id number] 400mg Take 1 [facility] 400 mg 1-14 capsule by ity of capsule 00:00: mouth 3 (three) Medical times Branch daily. QUEtiapine 2020-0 Yes [id number] 100mg Take 1 [facility] 100 mg 1-14 tablet by ity of tablet 00:00: mouth at [place] 00 bedtime. Medical Branch SERTraline 2020-0 Yes [id number] 100mg Take 1 [facility] 100 mg 1-14 tablet by ity of tablet 00:00: mouth [place] 00 every Medical morning. Branch tamsulosin 2020-0 Yes [id number] .4mg Take 1 [facility] 0.4 mg 24 1-14 capsule by ity of hr capsule 00:00: mouth [place] 00 daily. Medical Branch traZODone 2020-0 Yes [id number] 50mg Take 1 Un [place] 50 mg 1-14 tablet by ity of tablet 00:00: mouth at [place] 00 bedtime. Medical Branch levETIRAcet 2020-0 Yes [id number] 500mg Take 1 [facility] am 500 mg 1-14 tablet by ity o f tablet 00:00: mouth 2 (two) Medical times Branch daily. atorvastati 2020-0 Yes [id number] 80mg Take 1 [facility] n 80 mg 1-14 tablet by ity of tablet 00:00: mouth at [place] 00 bedtime. Medical Branch blood sugar 2020-0 Yes [id number] Use BID, [facility] diagnostic 1-14 DX E11.9 ity o f (BLOOD 00:00: (Brand [place] GLUCOSE 00 upon Medical TEST) strip insurance [facility] approval) gabapentin 2020-0 Yes [id number] 400mg Take 1 [facility] 400 mg 1-14 capsule by ity of capsule 00:00: mouth 3 [place] (three) Medical times Branch daily. QUEtiapine 2020-0 Yes [id number] 100mg Take 1 [facility] 100 mg 1-14 tablet by ity of tablet 00:00: mouth at [place] 00 bedtime. Medical Branch SERTraline 2020-0 Yes [id number] 100mg Take 1 [facility] 100 mg 1-14 tablet by ity of tablet 00:00: mouth [place] 00 every Medical morning. Branch tamsulosin Yes [id number] .4mg Take 1 [facility] 0.4 mg 24 1-14 capsule by ity of hr capsule 00:00: mouth [place] 00 daily. Medical Branch traZODone Yes [id number] 50mg Take 1 Un [place] 50 mg 1-14 tablet by ity of tablet 00:00: mouth at [place] 00 bedtime. Medical Branch Pioglitazon 2020- No [id number] 1{tbl} Take 1 [facility] e-Metformin 1-14 03-05 tablet by it y of 15-1,000 mg 00:00: 00:00 mouth 2 [place] TM24 00 :00 (two) Medical times Branch daily with meals. Pioglitazon 2019- No [id number] 1{tbl} Take 1 [facility] e-Metformin 1-14 03-05 tablet by it y of 15-1,000 mg 00:00: 00:00 mouth 2 [place] TM24 00 :00 (two) Medical times Branch daily with meals. gabapentin 2018-03 Yes 100 mg = 1 M emoria 100 MG Oral 2-05 cap, PO, l Capsule 05:00: BID, # 180 [place] 00 cap, 0 Refill(s), Pharmacy: [facility] #[id number] Levetiracet 2018-03 Yes 500 mg = 1 Memoria am 500 MG 2-05 tab, PO, l Oral Tablet 05:00: Q12H, # Her adams 00 180 tab, 0 Refill(s), Pharmacy: [facility] #[id number] sertraline 2018-03 Yes 100 mg = 2 M emoria 50 mg oral 2-05 tab, PO, l tablet 05:00: Daily, # [place] 00 180 tab, 0 Refill(s), Pharmacy: [facility] #[id number] tamsulosin 2018-03 Yes 0.4 mg = 1 M emoria 0.4 mg oral 2-05 cap, PO, l capsule 05:00: Daily, # Mauricio n 00 90 cap, 0 Refill(s), Pharmacy: [facility] #[id number] Aspirin 81 2018-03 Yes 81 mg = 1 Me moria MG Enteric 2-05 tab, PO, l Coated 05:00: Daily, # Demar Tablet 00 90 tab, 0 Refill(s), Pharmacy: [facility] #[id number] atorvastati 2018-03 Yes 80 mg = 1 M emoria n 80 mg 2-05 tab, PO, l oral tablet 05:00: Bedtime, # Demar 00 90 tab, 0 Refill(s), Pharmacy: [facility] #[id number] baclofen 20 2018-03 Yes 20 mg = 1 M emoria mg oral 2-05 tab, PO, l tablet 05:00: Q6H, # 360 [place]iqu[place] nn 00 tab, 0 Refill(s), Pharmacy: [facility] #[id number] Docusate 2018-03 Yes 100 mg = 1 Mem oria Sodium 100 2-05 cap, PO, l MG Oral 05:00: BID, # 180 [place] Capsule 00 cap, 0 Refill(s), Pharmacy: [facility] #[id number] lisinopril 2018-03 Yes 5 mg = 1 Mem oria 5 mg oral 2-05 tab, PO, l tablet 05:00: Bedtime, # Chiquita nn 00 90 tab, 0 Refill(s), Pharmacy: [facility] #[id number] melatonin 3 2018-03 Yes 6 mg = 2 Me moria mg oral 2-05 tab, PO, l tablet 05:00: Bedtime, X Hciquita nn 00 90 day, # 180 tab, 0 Refill(s), Pharmacy: [facility] #[id number] Metformin 2018-03 Yes 500 mg = 1 Me moria hydrochlori 2-05 tab, PO, l de 500 MG 05:00: BID-Meals, He rmann Oral Tablet 00 # 180 tab, 0 Refill(s), Pharmacy: [facility] #[id number] sennosides, 2018-03 Yes 8.6 mg = 1 Memoria [facility] 8.6 MG 2-05 tab, PO, l Oral Tablet 05:00: QNoon, X He rmann 00 90 day, # 90 tab, 0 Refill(s), Pharmacy: [facility] #[id number] Trazodone 2018-03 Yes 50 mg = 1 Mem oria Hydrochlori 2-05 tab, PO, l de 50 MG 05:00: Bedtime, # Her adams Oral Tablet 00 90 tab, 0 Refill(s), Pharmacy: [facility] #[id number] phenol 6% 2018-03 No Notes: Memori a AQ in water 04-21 WASTE: F/P l for 02:00: - Black; E [place] injection - [facility] Melatonin 2018-03 No Notes: Memori a 04-14 (Same as: l 03:00: Melatonin) sennosides, 2018-03 No Notes: [place] [facility] 8.6 MG 04-13 (Same as: l Oral Tablet 18:00: Senokot) He rm Tylenol 2018-03 No Notes: Do Memor ia 04-12 not exceed l 19:42: 4 gm/day. (Same as: Tylenol) Aspirin 81 2018-03 No Notes: Do Me moria MG Enteric 04-11 not crush l Coated 14:30: or chew. [place] Tablet (Same As: Ecotrin) atorvastati 2018-03 No Notes: [place] n 24 (Same as: l 03:00: Lipitor) Lisinopril 2018-03 No Notes: Memor ia 24 (Same as: l 03:00: Prinivil, Zestril) Metformin 2018-03 No Notes: Memori a - (Same as: l 23:00: Glucophage ) Take with meal vancomycin 2018-03 No 2001 mg: Me moria + Sodium 04-10 infuse l Chloride 22:00: over 2.5 Chiquita nn 0.9% IV 250 00 hours For mL adult patients only: Round to nearest 250 mg per Medical Staff approval gabapentin 2018-03 No Notes: Memor ia 100 MG Oral -23 (Same as: l Capsule 14:30: Neurontin) Sertraline 2018-03 No Notes: Memor ia 1-23 (Same as: l 14:30: Zoloft) tamsulosin 2018-03 No Notes: Memor ia -23 (Same As: l 14:30: Flomax) "Do Not Crush" Docusate 2018-03 No Notes: Memoria Sodium 100 -23 (Same as: l MG Oral 14:30: Colace) Demar Capsule 00 (Do Not Crush) sennosides, 2018-03 No Notes: [place] [facility] 8.6 MG -23 (Same as: l Oral Tablet 14:30: Senokot) He rm Vancomycin 2018-03 No 2001 mg: Me moria -23 infuse l 06:00: over 2.5 Demar 00 hours For adult patients only: Round to nearest 250 mg per Medical Staff approval Baclofen 2018-03 No Notes: Memoria -23 (Same As: l 06:00: Lioresal) Otis heparin 2018-03 No Notes: Memoria -23 porcine l 06:00: heparin Demar 00 cefepime 2018-03 No Notes: Memoria -23 (Same as: l 05:00: Maxipime) Demar 00 MEDICATION WASTE Product Size: 2000 mg Product Wasted: __0_ mg Levetiracet 2018-03 No Notes: [place] am 500 MG 04-10 (Same l Oral Tablet 05:00: as:Keppra) Demar Trazodone 2018-03 No Notes: Memori a Hydrochlori - (Same As: l de 50 MG 05:00: Desyrel) Chiquita nn Oral Tablet 00 Metronidazo 2018-03 No Notes: Tom [place] le 04-10 (Same as: l 04:00: Flagyl) Avoid alcohol. Albuterol 2018-03 No Notes: Memori a 0.833 MG/ML - (Same as: l / 03:35: Duoneb) Ipratropium 00 [place] 0.167 MG/ML Inhalant Solution Milk of 2018-03 No Notes: Memoria Magnesia -23 (Same as: l 03:33: Milk of Magnesia, MOM) Bisacodyl 2018-03 No Notes: Memori a 1-23 (Same As: l 03:33: Dulcolax, Bisco-Lax) Saline 2018-03 No Notes: Memoria Flush 0.9% - (Same as: l 03:33: BD Posiflush) Midazolam 2018-03 No Notes: Memori a -23 (Same l 03:33: as:Versed) Otis 00 Levetiracet 2018-03 No Notes: Tom [place] am [...] X 10 l 23:32: day, # 30 ea, 0 Refill(s), other Trazodone 2018-03 No Notes: Memori a 04-08 (Same As: l 03:00: Desyrel) Albuterol 2018-03 No Notes: SEE Me moria 0.83 MG/ML 04-08 RT l Inhalant 01:00: DOCUMENTAT Her adams Solution ION (Same as: Proventil) Ipratropium 2018-03 No Notes: SEE Memoria 04-08 RT l 01:00: DOCUMENTAT ION (Same as:Atroven t) Fleet 2018-03 No 1 supp, Memoria Glycerin 04-07 Route: HI, l Suppositori 23:49: Dosing Herm shelton es Adult 00 Weight 125.5, kg, Daily, STAT, Start date: 02/05/19 17:49:00 PEDIATRIC CRITICAL CARE NURSE, Duration: 30 day, Stop date: 03/07/19 9:00:00 PEDIATRIC CRITICAL CARE NURSE Ativan 2018-03 No Notes: Memoria -20 (Same as: l 15:19: Ativan) Baclofen 2018-03 No Notes: Memoria -20 (Same As: l 15:16: Lioresal) gabapentin 2018-03 No Notes: Memor ia 100 MG Oral 04-07 (Same as: l Capsule 15:00: Neurontin) Reglan 2018-03 No Notes: Memoria 1-20 (Same as: l 08:22: Reglan) Otis Phenergan 2018-03 No Notes: Do Mem oria 1-20 not give l 08:20: IV push. Otis (Same as: Phenergan) Phenergan 2018-03 No 12.5 mg, Tom [place]ia -20 Route: PO, l 08:15: Drug form: Demar 00 TAB, Q4H, Dosing Weight 125.5, kg, PRN Nausea & Vomiting, Start date: 02/05/19 2:15:00 PEDIATRIC CRITICAL CARE NURSE, Duration: 30 day, Stop date: 03/07/19 2:14:00 PEDIATRIC CRITICAL CARE NURSE Tylenol 2018-03 No Notes: Memoria 1-20 Infuse l 08:15: over 15 Otis 00 minutes Do not exceed 4gm/day of acetaminop hen MEDICATION WASTE Product Size: 1000 mg Product Wasted: ___ mg Flagyl 2018-03 No Notes: Memoria 1-20 (Same as: l 03:00: Flagyl) Otis 00 Avoid alcohol. heparin 2018-03 No 7,500 Memoria 1-19 unit, 0.75 l 22:00: mL, Route: Otis 00 SUB-Q, Drug form: INJ, Q8H, Dosing Weight 125.5, kg, Consider for obese patients, Start date: 02/04/19 16:00:00 PEDIATRIC CRITICAL CARE NURSE, Duration: 30 day, Stop date: 03/06/19 13:00:00 PEDIATRIC CRITICAL CARE NURSE, 0 vancomycin 2018-03 No 2001 mg: Me moria 1-19 infuse l 19:00: over 2.5 Demar 00 hours Flagyl 2018-03 No Notes: Memoria 1-19 (Same as: l 17:56: Flagyl) Otis 00 Avoid alcohol. Docusate 2018-03 No Notes: Memoria 1-19 (Same as: l 15:00: Colace) (Do Not Crush) sennosides, 2018-03 No Notes: Tom [place] [facility] - (Same as: l 15:00: Senokot) Saline 2018-03 No Notes: Memoria Flush 0.9% - Same as: l 15:00: BD [place] 00 Posiflush Sterile atorvastati 2018-03 No Notes: Tom [...] Not Crush" Valium 2018-03 No Notes: Memoria 04-06 (Same as: l 13:37: Valium) Valium 2018-03 No 5 mg, Memoria 04-06 Route: l 13:12: IVP, Drug form: INJ, BID, Dosing Weight 125.5, kg, PRN Seizure, Start date: 02/04/19 7:12:00 PEDIATRIC CRITICAL CARE NURSE, Duration: 30 day, Stop date: 03/06/19 7:11:00 PEDIATRIC CRITICAL CARE NURSE Omnipaque 2018-03 No Notes: Memori a 300 04-06 (Same l injectable 12:36: as:Omnipaq H erm solution 00 ue 300). WASTE: F/P - [...] moria IV 04-06 1,000 l 10:47: ml/hr, Otis 00 Infuse Over: 1 hr, Route: IV, 1,000, Drug form: INJ, ONCE, Priority: STAT, Dosing Weight 125.5 kg, Start date: 02/04/19 4:47:00 PEDIATRIC CRITICAL CARE NURSE, Stop date: 02/04/19 4:47:00 PEDIATRIC CRITICAL CARE NURSE, 0 Dextrose 2018-03 No 12.5 gm, Memor ia 50% Syringe 04-06 25 mL, l 10:18: Route: Otis 00 IVP, Drug Form: INJ, Dosing Weight 125.5, kg, PRN, PRN Blood Glucose Results, Start date: 02/04/19 4:18:00 PEDIATRIC CRITICAL CARE NURSE, Duration: 30 day, Stop date: 03/06/19 4:17:00 PEDIATRIC CRITICAL CARE NURSE, 0 Glucagon 2018-03 No 1 mg, Memoria 04-06 Route: IM, l 10:18: Drug form: Otis 00 PDR/INJ, PRN, Dosing Weight 125.5, kg, PRN Blood Glucose Results, Start date: 02/04/19 4:18:00 PEDIATRIC CRITICAL CARE NURSE, Duration: 30 day, Stop date: 03/06/19 4:17:00 PEDIATRIC CRITICAL CARE NURSE, 0 Insulin 2018-03 No Notes: Memoria Lispro 04-06 (Same as: l 10:18: Humalog) Roll in palms of hands gently; Do not shake vigorously . WASTE: F/P - Black; E - Municipal Trash Bin Stable for 28 days at room temperatur e. Expires in days from ____Date Labetalol 2018-03 No Notes: Memori a 04-06 (Same as: l 10:05: Normodyne, Otis 00 Trandate) Push over 2 minutes Give bolus over 2-3 minutes. cefepime 2018-03 No Notes: Memoria 04-06 (Same as: l 10:00: Maxipime) MEDICATION WASTE Product Size: 2000 mg Product Wasted: ___ mg Vancomycin 2018-03 No 1 ea, Memori a 04-06 Route: l 10:00: MISC, Otis 00 ONCALL, Dosing Weight 125.5, kg, Start date: 02/04/19 4:00:00 PEDIATRIC CRITICAL CARE NURSE, Duration: 7 day, Stop date: 02/11/19 3:59:00 PEDIATRIC CRITICAL CARE NURSE, Pharmacy to dose, ABX Indication : Fever of Unknown Source 0-60 days of age NS 1,000 mL 2018-03 No 1,000 mL, M emoria 04-06 Rate: 150 l 08:55: ml/hr, Otis 00 Infuse over: 6.7 hr, Route: IV, Dosing Weight 125.5 kg, Total Volume: 1,000, Start date: 02/04/19 2:55:00 PEDIATRIC CRITICAL CARE NURSE, Duration: 30 day, Stop date: 03/06/19 2:54:00 PEDIATRIC CRITICAL CARE NURSE, 2.51, m2, 0 Nystatin 2018-03 No Notes: Memoria 100 UNT/MG 04-06 (Same l Topical 08:54: as:Mycosta Herm shelton Powder 00 tin, Nilstat) For external use only. Acetaminoph 2018-03 No Notes: Do M emoria en 04-06 not exceed l 08:54: 4 gm/day. Demar 00 (Same as: Tylenol) Ondansetron 2018-03 No Notes: Tom [place] 04-06 (Same as: l 08:54: Zofran) Demar 00 MEDICATION WASTE Product Size: 4 mg Product Wasted: ___ mg Saline 2018-03 No Notes: Memoria Flush 0.9% 04-06 Same as: l 08:54: BD [place] 00 Posiflush Sterile Potassium 2018-03 No Notes: Memori a Chloride 04-06 (Same as: l 08:54: KCL) Otis 00 Infuse no faster than 10 mEq/hr [...] phosphate - (Same as: l 08:54: K [place] 00 Phosphate. ) Do not infuse phosphorou s concurrent ly in the same line as TPN or IVF that contains calcium. For double lumen central lines, phosphorou s may be infused in a separate lumen from TPN. 1 mMol phoshate has 1.47 mEq potassium Infuse over 4 hours potassium 2018-03 No Notes: Memori a phosphate-s 04-06 (Same as: l odium 08:54: Phos-NaK) Otis phosphate 00 Each 1.5 250 mg-280 gm pkt has mg-160 mg 250mg oral powder phosphorou for s. Mix reconstitut w/2.5oz ion water and stir. Magnesium 2018-03 No Notes: Memori a Sulfate 04-06 WASTE: F/P l 08:54: - Sink; E Otis 00 - Municipal Trash Bin Magnesium 2018-03 No Notes: Memori a Oxide 04-06 (Same as: l 08:54: Mag-Ox Ot[place] 00 400) Magnesium oxide 853iv=202p g elemental magnesium Dose=____m g magnesium oxide (___mg elemental magnesium) Calcium 2018-03 No Notes: Memoria Gluconate 04-06 WASTE: F/P l 08:54: - Sink; E [place] 00 - Municipal Trash Bin Calcium 2018-03 No Notes: Memoria Carbonate 04-06 (Same As: l 500 MG 08:54: Tums) Otis Chewable 00 Calcium Tablet Carbonate 500 mg = 200 mg elemental calcium Dose = mg calcium carbonate ( mg elemental calcium) TENS unit Yes [id number] 1{kit} 1 Kit Univers and 8-27 daily. ity of electrodes 00:00: [address] TENS unit Yes [id number] 1{kit} 1 Kit Univers and 8-27 daily. ity of electrodes 00:00: [address] TENS unit 2018- Yes [id number] 1{kit} 1 Kit Univers and 8-27 daily. ity of electrodes 00:00: [address] gabapentin 2018- Yes [id number] 400mg Take 1 Univers 400 mg 8-27 capsule by ity of capsule 00:00: mouth 3 [place] [address] (three) [facility] times Branch daily. TENS unit Yes [id number] 1{kit} 1 Kit Univers and 8-27 daily. ity of electrodes 00:00: [address] TENS unit 2018- Yes [id number] 1{kit} 1 Kit Univers and 8-27 daily. ity of electrodes 00:00: [address] TENS unit 2018- Yes [id number] 1{kit} 1 Kit Univers and 8-27 daily. ity of electrodes 00:00: [address] TENS unit 2018-0 Yes [id number] 1{kit} 1 Kit Univers and 8-27 daily. ity of electrodes 00:00: [address] TENS unit 2019-0 Yes [id number] 1{kit} 1 Kit Univers and 8-27 daily. ity of electrodes 00:00: [address] Branch TENS unit 2019-0 Yes [id number] 1{kit} 1 Kit Univers and 8-27 daily. ity of electrodes 00:00: [address] TENS unit 2019-0 Yes [id number] 1{kit} 1 Kit Univers and 8-27 daily. ity of electrodes 00:00: [address] TENS unit 2019-0 Yes [id number] 1{kit} 1 Kit Univers and 8-27 daily. ity of electrodes 00:00: [address] gabapentin 2019-0 Yes [id number] 400mg Take 1 Univers 400 mg 8-27 capsule by ity of capsule 00:00: mouth 3 [place] (three) Medical times [place] daily. TENS unit 2019-0 Yes [id number] 1{kit} 1 Kit Univers and 8-27 daily. ity of electrodes 00:00: [address] TENS unit 2019-0 Yes [id number] 1{kit} 1 Kit Univers and 8-27 daily. ity of electrodes 00:00: [address] TENS unit 2019-0 Yes [id number] 1{kit} 1 Kit Univers and 8-27 daily. ity of electrodes 00:00: [address] TENS unit 2019-0 Yes [id number] 1{kit} 1 Kit Univers and 8-27 daily. ity of electrodes 00:00: [address] gabapentin 2019-0 Yes [id number] 400mg Take 1 Univers 400 mg 8-27 capsule by ity of capsule 00:00: mouth 3 [place] (three) Medical times [place] daily. TENS unit 2019-0 Yes [id number] 1{kit} 1 Kit Univers and 8-27 daily. ity of electrodes 00:00: [address] TENS unit 2019-0 Yes [id number] 1{kit} 1 Kit Univers and 8-27 daily. ity of electrodes 00:00: [address] gabapentin 2019-0 Yes [id number] 400mg Take 1 Univers 400 mg 8-27 capsule by ity of capsule 00:00: mouth 3 [place] (three) Medical times Branch daily. TENS unit 2019-0 Yes [id number] 1{kit} 1 Kit Univers and 8-27 daily. ity of electrodes 00:00: [address] TENS unit 2018-0 Yes [id number] 1{kit} 1 Kit Univers and 8-27 daily. ity of electrodes 00:00: [address] TENS unit 2018-0 Yes [id number] 1{kit} 1 Kit Univers and 8-27 daily. ity of electrodes 00:00: [address] Branch gabapentin 2019-0 Yes [id number] 400mg Take 1 Univers 400 mg 8-27 capsule by ity of capsule 00:00: mouth 3 [place] [address] (three) Medical times [place] daily. TENS unit Yes [id number] 1{kit} 1 Kit Univers and 8-27 daily. ity of electrodes 00:00: [address] TENS unit 2018-0 Yes [id number] 1{kit} 1 Kit Univers and 8-27 daily. ity of electrodes 00:00: [address] TENS unit 2018-0 Yes [id number] 1{kit} 1 Kit Univers and 8-27 daily. ity of electrodes 00:00: [address] TENS unit 2018-0 Yes [id number] 1{kit} 1 Kit Univers and 8-27 daily. ity of electrodes 00:00: [address] TENS unit 2018-0 Yes [id number] 1{kit} 1 Kit Univers and 8-27 daily. ity of electrodes 00:00: [address] TENS unit 2018-0 Yes [id number] 1{kit} 1 Kit Univers and 8-27 daily. ity of electrodes 00:00: [address] TENS unit 2018-0 Yes [id number] 1{kit} 1 Kit Univers and 8-27 daily. ity of electrodes 00:00: [address] TENS unit 2018-0 Yes [id number] 1{kit} 1 Kit Univers and 8-27 daily. ity of electrodes 00:00: [address] TENS unit 2018-0 Yes [id number] 1{kit} 1 Kit Univers and 8-27 daily. ity of electrodes 00:00: [address] TENS unit 2018-0 Yes [id number] 1{kit} 1 Kit Univers and 8-27 daily. ity of electrodes 00:00: [facility] 00 Medical Branch TENS unit 2019-0 Yes [id number] 1{kit} 1 Kit Univers and 8-27 daily. ity of electrodes 00:00: [facility] Medical Branch TENS unit 2019-0 Yes [id number] 1{kit} 1 Kit Univers and 8-27 daily. ity of electrodes 00:00: [facility] Medical Branch TENS unit 2018-0 Yes [id number] 1{kit} 1 Kit Univers and 8-27 daily. ity of electrodes 00:00: [facility] Medical Branch TENS unit 2018-0 Yes [id number] 1{kit} 1 Kit Univers and 8-27 daily. ity of electrodes 00:00: [facility] Medical Branch TENS unit 2018-0 Yes [id number] 1{kit} 1 Kit Univers and 8-27 daily. ity of electrodes 00:00: [facility] Medical Branch TENS unit 2018-0 Yes [id number] 1{kit} 1 Kit Univers and 8-27 daily. ity of electrodes 00:00: [facility] Medical Branch TENS unit 2018-0 Yes [id number] 1{kit} 1 Kit Univers and 8-27 daily. ity of electrodes 00:00: [facility] Medical Branch TENS unit 2018-0 Yes [id number] 1{kit} 1 Kit Univers and 8-27 daily. ity of electrodes 00:00: [facility] Medical Branch TENS unit 2018-0 Yes [id number] 1{kit} 1 Kit Univers and 8-27 daily. ity of electrodes 00:00: [facility] Medical Branch TENS unit 2019-0 Yes [id number] 1{kit} 1 Kit Univers and 8-27 daily. ity of electrodes 00:00: [place] [address] Medical Branch TENS unit 2018-0 Yes [id number] 1{kit} 1 Kit Univers and 8-27 daily. ity of electrodes 00:00: [facility] 00 Medical Branch TENS unit 2018-0 Yes [id number] 1{kit} 1 Kit Univers and 8-27 daily. ity of electrodes 00:00: [facility] 00 Medical Branch TENS unit 2018-0 Yes [id number] 1{kit} 1 Kit Univers and 8-27 daily. ity of electrodes 00:00: [facility] 00 Medical Branch TENS unit 2019-0 Yes [id number] 1{kit} 1 Kit Univers and 8-27 daily. ity of electrodes 00:00: [facility] Medical Branch TENS unit 2018-0 Yes [id number] 1{kit} 1 Kit Univers and 8-27 daily. ity of electrodes 00:00: [facility] Medical Branch TENS unit 2018-0 Yes [id number] 1{kit} 1 Kit Univers and 8-27 daily. ity of electrodes 00:00: [facility] Medical Branch TENS unit 2018-0 Yes [id number] 1{kit} 1 Kit Univers and 8-27 daily. ity of electrodes 00:00: [place] [address] Medical Branch TENS unit 2018-0 Yes [id number] 1{kit} 1 Kit Univers and 8-27 daily. ity of electrodes 00:00: [place] [address] Medical Branch TENS unit 2018-0 Yes [id number] 1{kit} 1 Kit Univers and 8-27 daily. ity of electrodes 00:00: [place] [address] Medical Branch TENS unit 2018-0 Yes [id number] 1{kit} 1 Kit Univers and 8-27 daily. ity of electrodes 00:00: [facility] Medical Branch TENS unit 2018-0 Yes [id number] 1{kit} 1 Kit Univers and 8-27 daily. ity of electrodes 00:00: [facility] Medical Branch TENS unit 2018-0 Yes [id number] 1{kit} 1 Kit Univers and 8-27 daily. ity of electrodes 00:00: [facility] Medical Branch TENS unit 2018-0 Yes [id number] 1{kit} 1 Kit Univers and 8-27 daily. ity of electrodes 00:00: [place] [address] Medical Branch TENS unit 2018-0 Yes [id number] 1{kit} 1 Kit Univers and 8-27 daily. ity of electrodes 00:00: [place] [address] Medical Branch TENS unit 2018-0 Yes [id number] 1{kit} 1 Kit Univers and 8-27 daily. ity of electrodes 00:00: [place] [address] Medical Branch TENS unit 2018-0 Yes [id number] 1{kit} 1 Kit Univers and 8-27 daily. ity of electrodes 00:00: [place] [address] Medical Branch TENS unit 2018-0 Yes [id number] 1{kit} 1 Kit Univers and 8-27 daily. ity of electrodes 00:00: [address] TENS unit 2019-0 Yes [id number] 1{kit} 1 Kit Univers and 8-27 daily. ity of electrodes 00:00: [address] gabapentin 2019-0 Yes [id number] 400mg Take 1 Univers 400 mg 11-12 capsule by ity of capsule 00:00: mouth 3 [place] 00 (three) Medical times [place] daily. TENS unit 2019-0 Yes [id number] 1{kit} 1 Kit Univers and 8-27 daily. ity of electrodes 00:00: [address] TENS unit 2019-0 Yes [id number] 1{kit} 1 Kit Univers and 8-27 daily. ity of electrodes 00:00: [address] TENS unit 2019-0 Yes [id number] 1{kit} 1 Kit Univers and 8-27 daily. ity of electrodes 00:00: [address] TENS unit 2019-0 Yes [id number] 1{kit} 1 Kit Univers and 8-27 daily. ity of electrodes 00:00: [address] TENS unit 2019-0 Yes [id number] 1{kit} 1 Kit Univers and 8-27 daily. ity of electrodes 00:00: [address] TENS unit 2019-0 Yes [id number] 1{kit} 1 Kit Univers and 8-27 daily. ity of electrodes 00:00: [address] TENS unit 2019-0 Yes [id number] 1{kit} 1 Kit Univers and 8-27 daily. ity of electrodes 00:00: [address] TENS unit 2019-0 Yes [id number] 1{kit} 1 Kit Univers and 8-27 daily. ity of electrodes 00:00: [address] TENS unit 2019-0 Yes [id number] 1{kit} 1 Kit Univers and 8-27 daily. ity of electrodes 00:00: [address] gabapentin 2018-0 2020- No [id number] 400mg Take 1 Univers 400 mg 11-12 capsule by ity of capsule 00:00: 00:00 mouth 3 [place] 00 :00 (three) Medical times [place] daily. gabapentin 2018- 2020- No [id number] 400mg Take 1 Univers 400 mg 11-12 capsule by ity of capsule 00:00: 00:00 mouth 3 [place] 00 :00 (three) Medical times Branch daily. Saline No Notes: Memoria Flush 0.9% 09-24 (Same as: l 14:00: BD Demar Posiflush) Famotidine No Notes: Memor ia 09-24 (Same as: l 14:00: Pepcid) Levetiracet No Notes: Tom [place] am 500 MG 09-24 (Same l Oral Tablet 14:00: as:Keppra) Otis [Keppra] 00 gabapentin No Notes: Memor ia 300 MG Oral 09-24 (Same as: l Capsule 13:00: Neurontin) Herm shelton Acetaminoph No Notes: Max Memoria en 09-24 acetaminop l 11:44: hen 4000 Otis 00 mg/day (4 gm/day). (Same as: Tylenol Extra Strength) atorvastati No Notes: Tom virginia n 09-24 (Same as: l 06:33: Lipitor) Saline No Notes: Memoria Flush 0.9% 09-24 (Same as: l 05:35: BD Otis Posiflush) Sodium No 1,000 mL, Memori a Chloride 09-24 Rate: 100 l 0.9% IV 05:35: ml/hr, Demar 1,000 mL 00 Infuse over: 10 hr, Route: IV, Dosing Weight 120.455 kg, Total Volume: 1,000, Start date: 09/24/18 0:35:00 CDT, Duration: 30 day, Stop date: 10/24/18 0:34:00 CDT, 2.45, m2, 0 Insulin No Notes: Memoria Lispro 09-24 (Same as: l 05:33: Humalog) Demar 00 Roll in palms of hands gently; Do not shake vigorously . WASTE: F/P - Black; E - Municipal Trash Bin Stable for 28 days at room temperatur e. Expires in days from ____Date Dextrose 2019-0 No 25 gm, 50 Tom virginia 50% Syringe 7- mL, Route: l 05:33: IVP, Drug Form: INJ, Dosing Weight 120.455, kg, PRN, PRN Blood Glucose Results, Start date: 09/24/18 0:33:00 CDT, Duration: 30 day, Stop date: 10/24/18 0:32:00 CDT, 0 Glucagon 2018-0 No 1 mg, Memoria 09-24 Route: IM, l 05:33: Drug form: Otis 00 PDR/INJ, PRN, Dosing Weight 120.455, kg, PRN Blood Glucose Results, Start date: 09/24/18 0:33:00 CDT, Duration: 30 day, Stop date: 10/24/18 0:32:00 CDT, 0 baclofen 20 2018-0 Yes 20mg Take 20 mg Univers mg tablet 7-03 by mouth. ity o f 00:00: [address] baclofen 20 2018-0 Yes 20mg Take 20 mg Univers mg tablet 7-03 by mouth. ity o f 00:00: [place] [facility] baclofen 20 2018-0 Yes 20mg Take 20 mg Univers mg tablet 7-03 by mouth. ity o f 00:00: [place] [facility] baclofen 20 2018-0 Yes 20mg Take 20 mg Univers mg tablet 7-03 by mouth. ity o f 00:00: [address] baclofen 20 2018-0 Yes 20mg Take 20 mg Univers mg tablet 7-03 by mouth. ity o f 00:00: [address] baclofen 20 2018-0 Yes 20mg Take 20 mg Univers mg tablet 7-03 by mouth. ity o f 00:00: [address] baclofen 20 2018-0 Yes 20mg Take 20 mg Univers mg tablet 7-03 by mouth. ity o f 00:00: [place] [facility] baclofen 20 2018-0 Yes 20mg Take 20 mg Univers mg tablet 7-03 by mouth. ity o f 00:00: [address] baclofen 20 2018-0 Yes 20mg Take 20 mg Univers mg tablet 7-03 by mouth. ity o f 00:00: [address] baclofen 20 2018-0 Yes 20mg Take 20 mg Univers mg tablet 7-03 by mouth. ity o f 00:00: [address] baclofen 20 2018-0 Yes 20mg Take 20 mg Univers mg tablet 7-03 by mouth. ity o f 00:00: [facility] baclofen 20 2018-0 Yes 20mg Take 20 mg Univers mg tablet 7-03 by mouth. ity o f 00:00: [facility] baclofen 20 2018-0 Yes 20mg Take 20 mg Univers mg tablet 7-03 by mouth. ity o f 00:00: [facility] baclofen 20 2018-0 Yes 20mg Take 20 mg Univers mg tablet 7-03 by mouth. ity o f 00:00: [facility] baclofen 20 2018-0 Yes 20mg Take 20 mg Univers mg tablet 7-03 by mouth. ity o f 00:00: [facility] baclofen 20 2018-0 Yes 20mg Take 20 mg Univers mg tablet 7-03 by mouth. ity o f 00:00: [facility] baclofen 20 2018-0 Yes 20mg Take 20 mg Univers mg tablet 7-03 by mouth. ity o f 00:00: [facility] baclofen 20 2018-0 Yes 20mg Take 20 mg Univers mg tablet 7-03 by mouth. ity o f 00:00: [facility] baclofen 20 2018-0 Yes 20mg Take 20 mg Univers mg tablet 7-03 by mouth. ity o f 00:00: [facility] baclofen 20 2018-0 Yes 20mg Take 20 mg Univers mg tablet 7-03 by mouth. ity o f 00:00: [facility] baclofen 20 2018-0 Yes 20mg Take 20 mg Univers mg tablet 7-03 by mouth. ity o f 00:00: [facility] baclofen 20 2018-0 Yes 20mg Take 20 mg Univers mg tablet 7-03 by mouth. ity o f 00:00: [facility] baclofen 20 2018-0 Yes 20mg Take 20 mg Univers mg tablet 7-03 by mouth. ity o f 00:00: [address] Branch lancets 31 2018-0 Yes [id number] Use BID, Univers gauge Misc 6-18 DX E11.9 ity o f 00:00: (Brand [place] [address] upon [facility] Branch approval) lancets 31 2018-0 Yes [id number] Use BID, Univers gauge Misc 6-18 DX E11.9 ity o f 00:00: (Brand [place] 00 upon Medical insurance Branch approval) blood sugar 2019-0 Yes [id number] Use BID, Univers diagnostic 6-18 DX E11.9 ity o f (BLOOD 00:00: (Brand [place] GLUCOSE 00 upon Medical TEST) strip insurance [facility] approval) lancets 31 2019-0 Yes [id number] Use BID, Univers gauge Misc 6-18 DX E11.9 ity o f 00:00: (Brand [place] 00 upon Medical insurance Branch approval) lancets 31 2019-0 Yes [id number] Use BID, Univers gauge Misc 6-18 DX E11.9 ity o f 00:00: (Brand [place] 00 upon Medical insurance Branch approval) lancets 31 2019-0 Yes [id number] Use BID, Univers gauge Misc 6-18 DX E11.9 ity o f 00:00: (Brand [place] 00 upon Medical insurance Branch approval) lancets 31 2019-0 Yes [id number] Use BID, Univers gauge Misc 6-18 DX E11.9 ity o f 00:00: (Brand [place] 00 upon Medical insurance Branch approval) lancets 31 2019-0 Yes [id number] Use BID, Univers gauge Misc 6-18 DX E11.9 ity o f 00:00: (Brand [place] 00 upon Medical insurance Branch approval) lancets 31 2019-0 Yes [id number] Use BID, Univers gauge Misc 6-18 DX E11.9 ity o f 00:00: (Brand [place] 00 upon Medical insurance Branch approval) lancets 31 2019-0 Yes [id number] Use BID, Univers gauge Misc 6-18 DX E11.9 ity o f 00:00: (Brand [place] 00 upon Medical insurance Branch approval) lancets 31 2019-0 Yes [id number] Use BID, Univers gauge Misc 6-18 DX E11.9 ity o f 00:00: (Brand [place] 00 upon Medical insurance Branch approval) blood sugar 2019-0 Yes [id number] Use BID, Univers diagnostic 6-18 DX E11.9 ity o f (BLOOD 00:00: (Brand [place] GLUCOSE 00 upon Medical TEST) strip insurance [facility] approval) lancets 31 2019-0 Yes [id number] Use BID, Univers gauge Misc 6-18 DX E11.9 ity o f 00:00: (Brand [place] 00 upon Medical insurance Branch approval) lancets 31 2019-0 Yes [id number] Use BID, Univers gauge Misc 6-18 DX E11.9 ity o f 00:00: (Brand [place] 00 upon Medical insurance Branch approval) lancets 31 2019-0 Yes [id number] Use BID, Univers gauge Misc 6-18 DX E11.9 ity o f 00:00: (Brand [place] 00 upon Medical insurance Branch approval) lancets 31 2019-0 Yes [id number] Use BID, Univers gauge Misc 6-18 DX E11.9 ity o f 00:00: (Brand [place] 00 upon Medical insurance Branch approval) blood sugar 2019-0 Yes [id number] Use BID, Univers diagnostic 6-18 DX E11.9 ity o f (BLOOD 00:00: (Brand [place] GLUCOSE 00 upon Medical TEST) strip insurance [facility] approval) lancets 31 2018-0 Yes [id number] Use BID, Univers gauge Misc 6-18 DX E11.9 ity o f 00:00: (Brand [place] 00 upon Medical insurance Branch approval) lancets 31 2018-0 Yes [id number] Use BID, Univers gauge Misc 6-18 DX E11.9 ity o f 00:00: ([facility] [place] 00 upon Medical insurance Branch approval) lancets 31 2018-0 Yes [id number] Use BID, [facility] gauge Misc 6-18 DX E11.9 ity o f 00:00: ([facility] [place] 00 upon Medical insurance Branch approval) blood sugar 2019-0 Yes [id number] Use BID, Univers diagnostic 6-18 DX E11.9 ity o f (BLOOD 00:00: ([employer] [place] GLUCOSE 00 upon Medical TEST) strip insurance [facility] approval) lancets 31 2018-0 Yes [id number] Use BID, Univers gauge Misc 6-18 DX E11.9 ity o f 00:00: (Brand [place] 00 upon Medical insurance Branch approval) lancets 31 2019-0 Yes [id number] Use BID, Univers gauge Misc 6-18 DX E11.9 ity o f 00:00: ([employer] [place] 00 upon Medical insurance Branch approval) lancets 31 2019-0 Yes [id number] Use BID, Univers gauge Misc 6-18 DX E11.9 ity o f 00:00: ([employer] [place] 00 upon Medical insurance Branch approval) blood sugar 2019-0 Yes [id number] Use BID, Univers diagnostic 6-18 DX E11.9 ity o f (BLOOD 00:00: ([employer] [place] GLUCOSE 00 upon Medical TEST) strip insurance [facility] approval) lancets 31 2019-0 Yes [id number] Use BID, Univers gauge Misc 6-18 DX E11.9 ity o f 00:00: (Brand [place] 00 upon Medical insurance Branch approval) lancets 31 2019-0 Yes [id number] Use BID, Univers gauge Misc 6-18 DX E11.9 ity o f 00:00: ([employer] [place] 00 upon Medical insurance Branch approval) lancets 31 2019-0 Yes [id number] Use BID, Univers gauge Misc 6-18 DX E11.9 ity o f 00:00: ([employer] [place] 00 upon Medical insurance Branch approval) lancets 31 2019-0 Yes [id number] Use BID, Univers gauge Misc 6-18 DX E11.9 ity o f 00:00: (Brand [place] 00 upon Medical insurance Branch approval) lancets 31 2019-0 Yes [id number] Use BID, Univers gauge Misc 6-18 DX E11.9 ity o f 00:00: (Brand [place] 00 upon Medical insurance Branch approval) lancets 31 2019-0 Yes [id number] Use BID, Univers gauge Misc 6-18 DX E11.9 ity o f 00:00: (Brand [place] upon Medical insurance Branch approval) lancets 31 2019-0 Yes [id number] Use BID, Univers gauge Misc 6-18 DX E11.9 ity o f 00:00: ([employer] [place] 00 upon Medical insurance Branch approval) lancets 31 2019-0 Yes [id number] Use BID, Univers gauge Misc 6-18 DX E11.9 ity o f 00:00: ([employer] [place] 00 upon Medical insurance Branch approval) lancets 31 2019-0 Yes [id number] Use BID, Univers gauge Misc 6-18 DX E11.9 ity o f 00:00: ([employer] [place] 00 upon Medical insurance Branch approval) blood sugar 2019-0 Yes [id number] Use BID, Univers diagnostic 6-18 DX E11.9 ity o f (BLOOD 00:00: ([employer] [place] GLUCOSE 00 upon Medical TEST) strip insurance [facility] approval) lancets 31 2019-0 Yes [id number] Use BID, Univers gauge Misc 6-18 DX E11.9 ity o f 00:00: (Brand [place] 00 upon Medical insurance Branch approval) lancets 31 2019-0 Yes [id number] Use BID, Univers gauge Misc 6-18 DX E11.9 ity o f 00:00: (Brand [place] upon Medical insurance Branch approval) lancets 31 2019-0 Yes [id number] Use BID, Univers gauge Misc 6-18 DX E11.9 ity o f 00:00: ([facility] upon Medical insurance Branch approval) lancets 31 2019-0 Yes [id number] Use BID, Univers gauge Misc 6-18 DX E11.9 ity o f 00:00: (Brand [place] upon Medical insurance Branch approval) lancets 31 2019-0 Yes [id number] Use BID, Univers gauge Misc 6-18 DX E11.9 ity o f 00:00: ([facility] upon Medical insurance Branch approval) lancets 31 2019-0 Yes [id number] Use BID, Univers gauge Misc 6-18 DX E11.9 ity o f 00:00: ([facility] upon [facility] insurance Branch approval) lancets 31 2019-0 Yes [id number] Use BID, Univers gauge Misc 6-18 DX E11.9 ity o f 00:00: ([facility] upon Medical insurance Branch approval) lancets 31 2019-0 Yes [id number] Use BID, Univers gauge Misc 6-18 DX E11.9 ity o f 00:00: ([facility] upon Medical insurance Branch approval) lancets 31 2019-0 Yes [id number] Use BID, Univers gauge Misc 6-18 DX E11.9 ity o f 00:00: ([facility] upon [facility] insurance Branch approval) lancets 31 2019-0 Yes [id number] Use BID, Univers gauge Misc 6-18 DX E11.9 ity o f 00:00: ([facility] upon Medical insurance Branch approval) blood sugar 2019-0 Yes [id number] Use BID, Univers diagnostic 6-18 DX E11.9 ity o f (BLOOD 00:00: ([facility] GLUCOSE 00 upon Medical TEST) strip insurance [facility] approval) lancets 31 2019-0 Yes [id number] Use BID, Univers gauge Misc 6-18 DX E11.9 ity o f 00:00: ([facility] upon [facility] insurance Branch approval) lancets 31 2019-0 Yes [id number] Use BID, Univers gauge Misc 6-18 DX E11.9 ity o f 00:00: (Brand [place] 00 upon Medical insurance Branch approval) lancets 31 2019-0 Yes [id number] Use BID, Univers gauge Misc 6-18 DX E11.9 ity o f 00:00: (Brand [place] 00 upon [facility] insurance Branch approval) lancets 31 2019-0 Yes [id number] Use BID, Univers gauge Misc 6-18 DX E11.9 ity o f 00:00: (Brand [place] upon Medical insurance Branch approval) lancets 31 2019-0 Yes [id number] Use BID, Univers gauge Misc 6-18 DX E11.9 ity o f 00:00: ([employer] [place] upon Medical insurance Branch approval) lancets 31 2019-0 Yes [id number] Use BID, Univers gauge Misc 6-18 DX E11.9 ity o f 00:00: (Brand [place] upon [facility] Branch approval) lancets 31 2019-0 Yes [id number] Use BID, Univers gauge Misc 6-18 DX E11.9 ity o f 00:00: ([employer] [place] upon [facility] insurance Branch approval) lancets 31 2019-0 Yes [id number] Use BID, Univers gauge Misc 6-18 DX E11.9 ity o f 00:00: (Brand [place] upon [facility] insurance Branch approval) lancets 31 2019-0 Yes [id number] Use BID, Univers gauge Misc 6-18 DX E11.9 ity o f 00:00: ([facility] [place] upon [facility] Branch approval) lancets 31 2019-0 Yes [id number] Use BID, Univers gauge Misc 6-18 DX E11.9 ity o f 00:00: ([employer] [place] 00 upon [facility] insurance Branch approval) blood sugar 2019-0 Yes [id number] Use BID, Univers diagnostic 6-18 DX E11.9 ity o f (BLOOD 00:00: ([facility] [place] GLUCOSE 00 upon Medical TEST) strip insurance [facility] approval) lancets 31 2019-0 Yes [id number] Use BID, Univers gauge Misc 6-18 DX E11.9 ity o f 00:00: ([employer] [place] upon [facility] insurance Branch approval) lancets 31 2019-0 Yes [id number] Use BID, Univers gauge Misc 6-18 DX E11.9 ity o f 00:00: (Brand [place] upon Medical insurance Branch approval) lancets 31 2019-0 Yes [id number] Use BID, Univers gauge Misc 6-18 DX E11.9 ity o f 00:00: ([employer] [place] upon Medical insurance Branch approval) lancets 31 2019-0 Yes [id number] Use BID, Univers gauge Misc 6-18 DX E11.9 ity o f 00:00: ([facility] upon Medical insurance Branch approval) lancets 31 2019-0 Yes [id number] Use BID, Univers gauge Misc 6-18 DX E11.9 ity o f 00:00: ([employer] [place] upon Medical insurance Branch approval) lancets 31 2019-0 Yes [id number] Use BID, Univers gauge Misc 6-18 DX E11.9 ity o f 00:00: ([facility] upon Medical insurance Branch approval) lancets 31 2019-0 Yes [id number] Use BID, Univers gauge Misc 6-18 DX E11.9 ity o f 00:00: ([facility] upon Medical insurance Branch approval) lancets 31 2019-0 Yes [id number] Use BID, Univers gauge Misc 6-18 DX E11.9 ity o f 00:00: ([facility] upon Medical insurance Branch approval) lancets 31 2019-0 Yes [id number] Use BID, Univers gauge Misc 6-18 DX E11.9 ity o f 00:00: ([facility] upon Medical insurance Branch approval) lancets 31 2019-0 Yes [id number] Use BID, Univers gauge Misc 6-18 DX E11.9 ity o f 00:00: ([facility] upon Medical insurance Branch approval) lancets 31 2019-0 Yes [id number] Use BID, Univers gauge Misc 6-18 DX E11.9 ity o f 00:00: ([facility] upon Medical insurance Branch approval) blood sugar 2019-0 Yes [id number] Use BID, Univers diagnostic 6-18 DX E11.9 ity o f (BLOOD 00:00: ([facility] GLUCOSE 00 upon Medical TEST) strip insurance [facility] approval) lancets 31 2019-0 Yes [id number] Use BID, Univers gauge Misc 6-18 DX E11.9 ity o f 00:00: ([facility] upon Medical insurance Branch approval) lancets 31 2019-0 Yes [id number] Use BID, Univers gauge Misc 6-18 DX E11.9 ity o f 00:00: ([employer] [place] 00 upon Medical insurance Branch approval) lancets 31 2019-0 Yes [id number] Use BID, Univers gauge Misc 6-18 DX E11.9 ity o f 00:00: ([employer] [place] upon Medical insurance Branch approval) lancets 31 2019-0 Yes [id number] Use BID, Univers gauge Misc 6-18 DX E11.9 ity o f 00:00: ([employer] [place] upon Medical insurance Branch approval) lancets 31 2019-0 Yes [id number] Use BID, Univers gauge Misc 6-18 DX E11.9 ity o f 00:00: ([employer] [place] upon Medical insurance Branch approval) lancets 31 2019-0 Yes [id number] Use BID, Univers gauge Misc 6-18 DX E11.9 ity o f 00:00: ([employer] [place] upon Medical insurance Branch approval) lancets 31 2019-0 Yes [id number] Use BID, Univers gauge Misc 6-18 DX E11.9 ity o f 00:00: ([employer] [place] upon Medical insurance Branch approval) lancets 31 2019-0 Yes [id number] Use BID, Univers gauge Misc 6-18 DX E11.9 ity o f 00:00: ([employer] [place] upon Medical insurance Branch approval) lancets 31 2019-0 Yes [id number] Use BID, Univers gauge Misc 6-18 DX E11.9 ity o f 00:00: ([employer] [place] upon Medical insurance Branch approval) lancets 31 2019-0 Yes [id number] Use BID, Univers gauge Misc 6-18 DX E11.9 ity o f 00:00: ([employer] [place] 00 upon Medical insurance Branch approval) blood sugar 2019- 2020- No [id number] Use BID, Univers diagnostic 6-18 04-01 DX E11.9 ity of (BLOOD 00:00: 00:00 (Brand [place] GLUCOSE 00 :00 upon Medical TEST) strip insurance [facility] approval) blood sugar 2018- 2020- No [id number] Use BID, Univers diagnostic 6-18 04-01 DX E11.9 ity of (BLOOD 00:00: 00:00 ([facility] [place] GLUCOSE 00 :00 upon Medical TEST) strip insurance [facility] approval) QUEtiapine 2018- Yes 100mg Take 100 Un [...] every [place] 13 morning. Medical Branch QUEtiapine 2018-0 Yes 100mg Take 100 Un hunter 100 mg 6-11 mg by ity of tablet 14:44: mouth at [place] 13 bedtime. Medical Branch hydrocortis 2018-0 Yes [...] by ity of tablet 14:44: mouth at [place] 13 bedtime. Medical Branch hydrocortis 2019-0 Yes 10mg Take 10 mg Univers one 10 mg 6-11 by mouth ity of tablet 14:44: every [place] 13 morning. Medical Branch tamsulosin 2019-0 Yes .4mg Take 0.4 Uni vers 0.4 mg 24 6-11 mg by ity of hr capsule 14:44: mouth [place] 13 daily. Medical Branch QUEtiapine 2019-0 Yes 100mg Take 100 Un hunter 100 mg 6-11 mg by ity of tablet 14:44: mouth at [place] 13 bedtime. Medical Branch hydrocortis 2019-0 Yes 10mg Take 10 mg Univers one 10 mg 6-11 by mouth ity of tablet 14:44: every [place] 13 morning. Medical Branch tamsulosin 2019-0 Yes .4mg Take 0.4 Uni vers 0.4 mg 24 6-11 mg by ity of hr capsule 14:44: mouth [place] 13 daily. Medical Branch gabapentin 2019- Yes [id number] 300mg Take 1 Univers 300 mg 6-11 capsule by ity of capsule 00:00: mouth 3 [place] 00 (three) Medical times Branch daily. gabapentin 2019-0 Yes [id number] 300mg Take 1 Univers 300 mg 6-11 capsule by ity of capsule 00:00: mouth 3 [place] 00 (three) Medical times Branch daily. gabapentin 2019-0 Yes [id number] 300mg Take 1 Univers 300 mg 6-11 capsule by ity of capsule 00:00: mouth 3 [place] 00 (three) Medical times Branch daily. gabapentin 2018- 2019- No [id number] 300mg Take 1 Univers 300 mg 6-11 08-27 capsule by ity of capsule 00:00: 00:00 mouth 3 [place] 00 :00 (three) Medical times Branch daily. gabapentin 2018- 2019- No [id number] 300mg Take 1 Univers 300 mg 6-11 08-27 capsule by ity of capsule 00:00: 00:00 mouth 3 [place] 00 :00 (three) Medical times Branch daily. gabapentin 2018- 2019- No [id number] 300mg Take 1 Univers 300 mg 6-11 08-27 capsule by ity of capsule 00:00: 00:00 mouth 3 [place] 00 :00 (three) Medical times Branch daily. famotidine 2019-0 Yes 20mg Take 1 [facility] [...] S t (PEPCID) 20 6-06 tablet (20 Iwnsome kes MG tablet 00:00: mg total) Med [...] Tablet 00 90 tab, 3 Refill(s), Pharmacy: [facility] [id number] Lactulose No Notes: Memori a 667 MG/ML [...] tab, PO, l tablet 07:34: Daily, # 30 tab, 0 Refill(s) heparin No Notes: Memoria 5-18 porcine l 05:00: heparin [place] 00 atorvastati Yes 80 mg = 1 [...] 0.9% 5-18 (Same as: l 02:00: BD [place] Posiflush) Aspirin 325 No Notes: (Do Mem[facility] MG Enteric 5-18 Not Crush) l Coated 02:00: Do not Otis Tablet 00 crush or chew. Docusate No Notes: Memoria 5-18 (Same as: l 02:00: Colace) Demar 00 (Do Not Crush) atorvastati No Notes: [place] n 5-18 Same as l 02:00: Lipitor [place]is Saline No Notes: Mem[facility] Flush 0.9% 5-18 (Same as: l 01:29: BD Demar 00 Posiflush) Acetaminoph No Notes: Do M emoria en 5-18 not exceed l 01:29: 4 gm/day. Demar (Same as: Tylenol) Iohexol No 100 mL, Memoria 5-18 Route: l 00:08: IVP, Drug Demar Form: SOLN, Dosing Weight 118.182, kg, ONCALL, STAT, Start date: 08/02/18 19:08:00 CDT, Duration: 1 doses or times, Dose = 2.2ml/kg, Max dose = 100ml -- "To be infused by Radiology Staff ONLY" TENS unit 2019-0 Yes [id number] 1{kit} 1 Kit Univers and 4 daily. ity of electrodes 00:00: [facility] 00 Medical Branch TENS unit 2019-0 Yes [id number] 1{kit} 1 Kit Univers and 4- daily. ity of electrodes 00:00: [facility] 00 Medical Branch TENS unit 2019-0 Yes [id number] 1{kit} 1 Kit Univers and 06-25 daily. ity of electrodes 00:00: [facility] 00 Medical Branch TENS unit 2018-0 2019- No [id number] 1{kit} 1 Kit Univers and 06-25 daily. ity of electrodes 00:00: 00:00 [facility] 00 :00 Medical Branch TENS unit 2018-0 2019- No [id number] 1{kit} 1 Kit Univers and 06-25 daily. ity of electrodes 00:00: 00:00 [facility] 00 :00 Medical Branch TENS unit 2018-0 2019- No [id number] 1{kit} 1 Kit Univers and 06-25 daily. ity of electrodes 00:00: 00:00 [facility] 00 :00 Medical Branch levETIRAcet 2018-0 Yes [id number] 500mg Take 1 Univers am 500 mg 1-25 tablet by ity o f tablet 00:00: mouth 2 (two) Medical times Branch daily. levETIRAcet 2018- Yes [id number] 500mg Take 1 Univers am 500 mg 1-25 tablet by ity o f tablet 00:00: mouth 2 (two) Medical times Branch daily. levETIRAcet 2018- Yes [id number] 500mg Take 1 Univers am 500 mg 1-25 tablet by ity o f tablet 00:00: mouth 2 (two) Medical times Branch daily. levETIRAcet 2018-0 Yes [id number] 500mg Take 1 Univers am 500 mg 1-25 tablet by ity o f tablet 00:00: mouth 2 (two) Medical times Branch daily. levETIRAcet 2018- Yes [id number] 500mg Take 1 Univers am 500 mg 1-25 tablet by ity o f tablet 00:00: mouth 2 (two) Medical times Branch daily. levETIRAcet 2018- Yes [id number] 500mg Take 1 Univers am 500 mg 1-25 tablet by ity o f tablet 00:00: mouth 2 [place] (two) Medical times Branch daily. levETIRAcet Yes [id number] 500mg Take 1 Univers am 500 mg 1-25 tablet by ity o f tablet 00:00: mouth 2 [place] (two) Medical times Branch daily. levETIRAcet Yes [id number] 500mg Take 1 Univers am 500 mg 1-25 tablet by ity o f tablet 00:00: mouth 2 [place] (two) Medical times Branch daily. levETIRAcet Yes [id number] 500mg Take 1 Univers am 500 mg 1-25 tablet by ity o f tablet 00:00: mouth 2 [place] (two) Medical times Branch daily. levETIRAcet 2020- No [id number] 500mg Take 1 Univers am 500 mg 1-25 -14 tablet by ity of tablet 00:00: 00:00 mouth 2 [place] 00 :00 (two) Medical times Branch daily. levETIRAcet 2020- No [id number] 500mg Take 1 Univers am 500 mg 1-25 -14 tablet by ity of tablet 00:00: 00:00 mouth 2 [place] 00 :00 (two) Medical times Branch daily. atorvastati 2017-03 Yes [id number] 80mg Take 1 Univers n 80 mg 0-19 tablet by ity of tablet 00:00: mouth at [place] 00 bedtime. Medical Branch SERTraline 2017-03 Yes [id number] 100mg Take 1 Univers 100 mg 0-19 tablet by ity of tablet 00:00: mouth [place] 00 every Medical morning. Branch metFORMIN 2017-03 Yes [id number] 1000mg Take 1 Univers 1,000 mg 0-19 tablet by ity of tablet 00:00: mouth 2 [place] (two) Medical times Branch daily with meals. atorvastati 2017-03 Yes [id number] 80mg Take 1 Univers n 80 mg 0-19 tablet by ity of tablet 00:00: mouth at [place] 00 bedtime. Medical Branch SERTraline 2017-03 Yes [id number] 100mg Take 1 Univers 100 mg 0-19 tablet by ity of tablet 00:00: mouth [place] 00 every Medical morning. Branch metFORMIN 2017-03 Yes [id number] 1000mg Take 1 Univers 1,000 mg 0-19 tablet by ity of tablet 00:00: mouth 2 [place] 00 (two) Medical times Branch daily with meals. atorvastati 2017-03 Yes [id number] 80mg Take 1 Univers n 80 mg 0-19 tablet by ity of tablet 00:00: mouth at [place] 00 bedtime. Medical Branch SERTraline 2017-03 Yes [id number] 100mg Take 1 Univers 100 mg 0-19 tablet by ity of tablet 00:00: mouth [place] 00 every Medical morning. Branch metFORMIN 2017-03 Yes [id number] 1000mg Take 1 Univers 1,000 mg 0-19 tablet by ity of tablet 00:00: mouth 2 (two) Medical times Branch daily with meals. atorvastati 2017-03 Yes [id number] 80mg Take 1 Univers n 80 mg 0-19 tablet by ity of tablet 00:00: mouth at [place] 00 bedtime. Medical Branch SERTraline 2017-03 Yes [id number] 100mg Take 1 Univers 100 mg 0-19 tablet by ity of tablet 00:00: mouth [place] 00 every Medical morning. Branch metFORMIN 2017-03 Yes [id number] 1000mg Take 1 Univers 1,000 mg 0-19 tablet by ity of tablet 00:00: mouth 2 (two) Medical times Branch daily with meals. atorvastati 2017-03 Yes [id number] 80mg Take 1 Univers n 80 mg 0-19 tablet by ity of tablet 00:00: mouth at [place] 00 bedtime. Medical Branch SERTraline 2017-03 Yes [id number] 100mg Take 1 Univers 100 mg 0-19 tablet by ity of tablet 00:00: mouth [place] 00 every Medical morning. Branch metFORMIN 2017-03 Yes [id number] 1000mg Take 1 Univers 1,000 mg 0-19 tablet by ity of tablet 00:00: mouth 2 (two) Medical times Branch daily with meals. atorvastati 2017-03 Yes [id number] 80mg Take 1 Univers n 80 mg 0-19 tablet by ity of tablet 00:00: mouth at [place] 00 bedtime. Medical Branch SERTraline 2017-03 Yes [id number] 100mg Take 1 Univers 100 mg 0-19 tablet by ity of tablet 00:00: mouth [place] 00 every Medical morning. Branch metFORMIN 2017-03 Yes [id number] 1000mg Take 1 Univers 1,000 mg 0-19 tablet by ity of tablet 00:00: mouth 2 [place] 00 (two) Medical times Branch daily with meals. atorvastati 2017-03 Yes [id number] 80mg Take 1 Univers n 80 mg 0-19 tablet by ity of tablet 00:00: mouth at [place] 00 bedtime. Medical Branch SERTraline 2017-03 Yes [id number] 100mg Take 1 Univers 100 mg 0-19 tablet by ity of tablet 00:00: mouth [place] 00 every Medical morning. Branch metFORMIN 2017-03 Yes [id number] 1000mg Take 1 Univers 1,000 mg 0-19 tablet by ity of tablet 00:00: mouth 2 (two) Medical times Branch daily with meals. atorvastati 2017-03 Yes [id number] 80mg Take 1 Univers n 80 mg 0-19 tablet by ity of tablet 00:00: mouth at [place] 00 bedtime. Medical Branch SERTraline 2017-03 Yes [id number] 100mg Take 1 Univers 100 mg 0-19 tablet by ity of tablet 00:00: mouth [place] 00 every Medical morning. Branch metFORMIN 2017-03 Yes [id number] 1000mg Take 1 Univers 1,000 mg 0-19 tablet by ity of tablet 00:00: mouth 2 (two) Medical times Branch daily with meals. atorvastati 2017-03 Yes [id number] 80mg Take 1 Univers n 80 mg 0-19 tablet by ity of tablet 00:00: mouth at [place] 00 bedtime. Medical Branch SERTraline 2017-03 Yes [id number] 100mg Take 1 Univers 100 mg 0-19 tablet by ity of tablet 00:00: mouth [place] 00 every Medical morning. Branch metFORMIN 2017-03 Yes [id number] 1000mg Take 1 Univers 1,000 mg 0-19 tablet by ity of tablet 00:00: mouth 2 (two) Medical times Branch daily with meals. atorvastati 2017-03 2020- No [id number] 80mg Take 1 Univers n 80 mg 0-19 01-14 tablet by ity of tablet 00:00: 00:00 mouth at [place] 00 :00 bedtime. Medical Branch SERTraline 2017-03- No [id number] 100mg Take 1 Univers 100 mg 0-19 -14 tablet by ity of tablet 00:00: 00:00 mouth [place] 00 :00 every Medical morning. Branch metFORMIN 2017-03- No [id number] 1000mg Take 1 Univers 1,000 mg 0-19 -14 tablet by ity o f tablet 00:00: 00:00 mouth 2 [place] 00 :00 (two) Medical times Branch daily with meals. atorvastati 2017-03- No [id number] 80mg Take 1 Univers n 80 mg 0-19 -14 tablet by ity of tablet 00:00: 00:00 mouth at [place] 00 :00 bedtime. Medical Branch SERTraline 2017-03- No [id number] 100mg Take 1 Univers 100 mg 0-19 -14 tablet by ity of tablet 00:00: 00:00 mouth [place] 00 :00 every Medical morning. Branch metFORMIN 2017-03- No [id number] 1000mg Take 1 Univers 1,000 mg 0-19 [...] 0.9% 8-16 (Same as: l 14:46: BD Demar 00 Posiflush) tamsulosin No Notes: Memor ia 8-16 (Same As: l 14:00: Flomax) "Do Not Crush" sennosides, No Notes: [place] [facility] 8.6 MG 8-16 (Same as: l Oral Tablet 14:00: Senokot) He Metformin No Notes: Memori a hydrochlori 8-16 (Same as: l de 500 MG 14:00: Glucophage He rm Oral Tablet 00 ) Take with meal [...] 8-16 PO, PRN l 07:10: Pain Score Otis 00 1-5, 0 Refill(s) sennosides, 2018-0 Yes 8.6 mg = 1 Memoria [facility] 8.6 MG 8-16 tab, PO, l Oral Tablet 07:10: Daily, 0 He rmann 00 Refill(s) docusate 0 Yes 100 mg, Memori a sodium 8-16 PO, BID, 0 l 07:10: Refill(s) Otis 00 Lorazepam 1 Yes 1 mg = 1 Me moria MG Oral 8-16 tab, PO, l Tablet 07:10: TID, 0 Otis 00 Refill(s) Aspirin 81 Yes 81 mg = 1 Me moria MG Chewable 8-16 tab, PO, l Tablet 07:10: Daily, Otis 00 tab, 0 Refill(s) pneumococca No 0.5 [...] PO, l oral tablet 06:41: Bedtime, # Otis 00 30 tab, 0 Refill(s) normal No 1,000 mL, Memori a saline 0.9% 8-16 Rate: 75 l IV 1,000 mL 04:39: ml/hr, Herm shelton 00 Infuse over: 13.3 hr, Route: IV, Dosing Weight 113.636 kg, Total Volume: 1,000, Start date: 10/31/17 23:39:00 CDT, Duration: 30 day, Stop date: 11/30/17 23:38:00 CDT, 2.38, m2 Zofran No Notes: Memoria 11-01 (Same as: l 04:36: Zofran) Demar MEDICATION WASTE Product Size: 4 mg Product Wasted: ___ mg Morphine No Notes: Memoria 11-01 (Same l 04:36: as:MORPhin Demar 00 e Sulfate) Saline No Notes: Memoria Flush 0.9% 11-01 (Same as: l 00:54: BD [place] 00 Posiflush) sennosides, No 8.6 mg = 1 Memoria [facility] 8.6 MG 4-12 tab, PO, l Oral Tablet 23:24: Daily, 0 He rmann 00 Refill(s) atorvastati No 20 mg = 1 M emoria n 20 mg 4-12 tab, PO, l oral tablet 23:24: Bedtime, 0 Demar 00 Refill(s) Levetiracet No 500 mg = 1 Memoria am 500 MG 4-12 tab, PO, l Oral Tablet 23:24: Q12H, 0 Her adams 00 Refill(s) enoxaparin No 40 mg = [place] 40 mg/0.4 4-12 0.4 mL, l mL 23:24: SUB-Q, Demar subcutaneou 00 [id number], s solution 0 Refill(s) Docusate No 100 mg = 1 Mem oria Sodium 100 4-12 cap, PO, l MG Oral 23:24: BID, 0 Otis Capsule 00 Refill(s) Aspirin 81 No 81 mg = 1 Me moria MG Enteric 4-12 tab, PO, l Coated 23:24: Daily, 0 Otis Tablet 00 Refill(s) Acetaminoph No 100.4 F, [...] tab, PO, l tablet 23:24: Daily, 0 [place]is 00 Refill(s) Docusate No Notes: Memoria Sodium 100 -10 (Same as: l MG Oral 22:00: Colace) Demar Capsule (Do Not Crush) Bisacodyl No Notes: Memori a -10 (Same As: l 20:45: Dulcolax, Otis Bisco-Lax) Keppra No Notes: Memoria 4-10 (Same l 17:22: as:Keppra) Demar 00 Calcium No Notes: Memoria Gluconate 06-26 WASTE: F/P l 13:27: - Sink; E - [employer] Hydralazine No Notes: [place] 06-25 (Same as: l 13:45: Apresoline ) Push over 5 minutes Acetaminoph No Notes: Do M emoria en 06-25 not exceed l 13:45: 4 gm/day. Demar (Same as: Tylenol) Zofran No Notes: Memoria [...] temperatur e Expires in days from ____Date nichole, No Notes: [place] [facility] 8.6 MG 06-24 (Same as: l Oral Tablet 14:00: Senokot) He Sertraline No Notes: Memor ia 06-24 (Same [...] Lovenox) atorvastati No Notes: [place] n 06-24 (Same As: l 02:29: Lipitor) tamsulosin No Notes: Memor ia 08 (Same As: l 02:23: Flomax) "Do Not Crush" Aspirin No Notes: Do Memor ia 08 not crush l 02:21: or chew. (Same [...] 4-08 Route: IM, l 02:20: Drug form: Otis 00 PDR/INJ, PRN, Dosing Weight 115.455, kg, [...] 0.9% 4-08 (Same as: l 02:00: BD [place]is Posiflush) Saline No Notes: Memoria Flush 0.9% 4-08 (Same as: l 01:01: BD [place] Posiflush) TENS UNIT 2016-03 Yes [id number] Use TENS Univers ELECTRODES 1-22 unit at ity of (TENS UNITS 00:00: least 2 [place] as ELECTRODES) 00 times a Medic al 2X2 " Pads day as Branch needed for pain. TENS UNIT 2016-03 Yes [id number] Use TENS Univers ELECTRODES 1-22 unit at ity of (TENS UNITS 00:00: least 2 [place] as ELECTRODES) 00 times a Medic al 2X2 " Pads day as Branch needed for pain. TENS UNIT 2016-03 Yes [id number] Use TENS Univers ELECTRODES 1-22 unit at ity of (TENS UNITS 00:00: least 2 [place] as ELECTRODES) 00 times a Medic al 2X2 " Pads day as Branch needed for pain. TENS UNIT 2016-03 Yes [id number] Use TENS [facility] ELECTRODES 1-22 unit at ity of (TENS UNITS 00:00: least 2 [place] as ELECTRODES) 00 times a Medic al 2X2 " Pads day as Branch needed for pain. TENS UNIT 2016-03 Yes [id number] Use TENS [facility] ELECTRODES 1-22 unit at ity of (TENS UNITS 00:00: least 2 [place] ELECTRODES) 00 times a Medic al 2X2 " Pads day as Branch needed for pain. TENS UNIT 2016-03 Yes [id number] Use TENS [facility] ELECTRODES 1-22 unit at ity of (TENS UNITS 00:00: least 2 [place] [facility] ELECTRODES) 00 times a Medic al 2X2 " Pads day as Branch needed for pain. TENS UNIT 2016-03 Yes [id number] Use TENS [facility] ELECTRODES 1-22 unit at ity of (TENS UNITS 00:00: least 2 [place] ELECTRODES) 00 times a Medic al 2X2 " Pads day as Branch needed for pain. TENS UNIT 2016-03 Yes [id number] Use TENS [facility] ELECTRODES 1-22 unit at ity of (TENS UNITS 00:00: least 2 [place] ELECTRODES) 00 times a Medic al 2X2 " Pads day as Branch needed for pain. TENS UNIT 2016-03 Yes [id number] Use TENS [facility] ELECTRODES 1-22 unit at ity of (TENS UNITS 00:00: least 2 [place] ELECTRODES) 00 times a Medic al 2X2 " Pads day as Branch needed for pain. TENS UNIT 2016-03 Yes [id number] Use TENS [facility] ELECTRODES 1-22 unit at ity of (TENS UNITS 00:00: least 2 [place] [facility] ELECTRODES) 00 times a Medic al 2X2 " Pads day as Branch needed for pain. TENS UNIT 2016-03 Yes [id number] Use TENS [facility] ELECTRODES 1-22 unit at ity of (TENS UNITS 00:00: least 2 [place] [facility] ELECTRODES) 00 times a Medic al 2X2 " Pads day as Branch needed for pain. TENS UNIT 2016- Yes [id number] Use TENS [facility] ELECTRODES 1-22 unit at ity of (TENS UNITS 00:00: least 2 [place] [facility] ELECTRODES) 00 times a Medic al 2X2 " Pads day as Branch needed for pain. TENS UNIT 2016-03 Yes [id number] Use TENS [facility] ELECTRODES 1-22 unit at ity of (TENS UNITS 00:00: least 2 [place] [facility] ELECTRODES) 00 times a Medic al 2X2 " Pads day as Branch needed for pain. TENS UNIT 2016-03 Yes [id number] Use TENS [facility] ELECTRODES 1-22 unit at ity of (TENS UNITS 00:00: least 2 [place] ELECTRODES) 00 times a Medic al 2X2 " Pads day as Branch needed for pain. TENS UNIT 2016-03 Yes [id number] Use TENS [facility] ELECTRODES 1-22 unit at ity of (TENS UNITS 00:00: least 2 [place] [facility] ELECTRODES) 00 times a Medic al 2X2 " Pads day as Branch needed for pain. TENS UNIT 2016-03 Yes [id number] Use TENS [facility] ELECTRODES 1-22 unit at ity of (TENS UNITS 00:00: least 2 [place] [facility] ELECTRODES) 00 times a Medic al 2X2 " Pads day as Branch needed for pain. TENS UNIT 2016-03 Yes [id number] Use TENS [facility] ELECTRODES 1-22 unit at ity of (TENS UNITS 00:00: least 2 [place] [facility] ELECTRODES) 00 times a Medic al 2X2 " Pads day as Branch needed for pain. TENS UNIT 2016-03 Yes [id number] Use TENS [facility] ELECTRODES 1-22 unit at ity of (TENS UNITS 00:00: least 2 [place] [facility] ELECTRODES) 00 times a Medic al 2X2 " Pads day as Branch needed for pain. TENS UNIT 2016-03 Yes [id number] Use TENS [facility] ELECTRODES 1-22 unit at ity of (TENS UNITS 00:00: least 2 [place] [facility] ELECTRODES) 00 times a Medic al 2X2 " Pads day as Branch needed for pain. TENS UNIT 2016-03 Yes [id number] Use TENS [facility] ELECTRODES 1-22 unit at ity of (TENS UNITS 00:00: least 2 [place] as ELECTRODES) 00 times a Medic al 2X2 " Pads day as Branch needed for pain. TENS UNIT 2016-03 Yes [id number] Use TENS [facility] ELECTRODES 1-22 unit at ity of (TENS UNITS 00:00: least 2 [place] [facility] ELECTRODES) 00 times a Medic al 2X2 " Pads day as Branch needed for pain. TENS UNIT 2016- Yes [id number] Use TENS [facility] ELECTRODES 1-22 unit at ity of (TENS UNITS 00:00: least 2 [place] as ELECTRODES) 00 times a Medic al 2X2 " Pads day as Branch needed for pain. TENS UNIT 2016-03 Yes [id number] Use TENS [facility] ELECTRODES 1-22 unit at ity of (TENS UNITS 00:00: least 2 [place] [facility] ELECTRODES) 00 times a Medic al 2X2 " Pads day as Branch needed for pain. TENS UNIT 2016-03 Yes [id number] Use TENS [facility] ELECTRODES 1-22 unit at ity of (TENS UNITS 00:00: least 2 [place] as ELECTRODES) 00 times a Medic al 2X2 " Pads day as Branch needed for pain. TENS UNIT 2016-03 Yes [id number] Use TENS [facility] ELECTRODES 1-22 unit at ity of (TENS UNITS 00:00: least 2 [place] as ELECTRODES) 00 times a Medic al 2X2 " Pads day as Branch needed for pain. TENS UNIT 2016-03 Yes [id number] Use TENS [facility] ELECTRODES 1-22 unit at ity of (TENS UNITS 00:00: least 2 [place] as ELECTRODES) 00 times a Medic al 2X2 " Pads day as Branch needed for pain. TENS UNIT 2016-03 Yes [id number] Use TENS [facility] ELECTRODES 1-22 unit at ity of (TENS UNITS 00:00: least 2 [place] as ELECTRODES) 00 times a Medic al 2X2 " Pads day as Branch needed for pain. TENS UNIT 2016-03 Yes [id number] Use TENS [facility] ELECTRODES 1-22 unit at ity of (TENS UNITS 00:00: least 2 [place] as ELECTRODES) 00 times a Medic al 2X2 " Pads day as Branch needed for pain. TENS UNIT 2016-03 Yes [id number] Use TENS [facility] ELECTRODES 1-22 unit at ity of (TENS UNITS 00:00: least 2 [place] ELECTRODES) 00 times a Medic al 2X2 " Pads day as Branch needed for pain. TENS UNIT 2016-03 Yes [id number] Use TENS [facility] ELECTRODES 1-22 unit at ity of (TENS UNITS 00:00: least 2 [place] [facility] ELECTRODES) 00 times a Medic al 2X2 " Pads day as Branch needed for pain. TENS UNIT 2016- Yes [id number] Use TENS [facility] ELECTRODES 1-22 unit at ity of (TENS UNITS 00:00: least 2 [place] as ELECTRODES) 00 times a Medic al 2X2 " Pads day as Branch needed for pain. TENS UNIT 2016-03 Yes [id number] Use TENS [facility] ELECTRODES 1-22 unit at ity of (TENS UNITS 00:00: least 2 [place] ELECTRODES) 00 times a Medic al 2X2 " Pads day as Branch needed for pain. TENS UNIT 2016-03 Yes [id number] Use TENS [facility] ELECTRODES 1-22 unit at ity of (TENS UNITS 00:00: least 2 [place] [facility] ELECTRODES) 00 times a Medic al 2X2 " Pads day as Branch needed for pain. TENS UNIT 2016-03 Yes [id number] Use TENS [facility] ELECTRODES 1-22 unit at ity of (TENS UNITS 00:00: least 2 [place] ELECTRODES) 00 times a Medic al 2X2 " Pads day as Branch needed for pain. TENS UNIT 2016-03 Yes [id number] Use TENS [facility] ELECTRODES 1-22 unit at ity of (TENS UNITS 00:00: least 2 [place] ELECTRODES) 00 times a Medic al 2X2 " Pads day as Branch needed for pain. TENS UNIT 2016-03 Yes [id number] Use TENS [facility] ELECTRODES 1-22 unit at ity of (TENS UNITS 00:00: least 2 [place] ELECTRODES) 00 times a Medic al 2X2 " Pads day as Branch needed for pain. TENS UNIT 2016-03 Yes [id number] Use TENS [facility] ELECTRODES 1-22 unit at ity of (TENS UNITS 00:00: least 2 [place] [facility] ELECTRODES) 00 times a Medic al 2X2 " Pads day as Branch needed for pain. TENS UNIT 2016-03 Yes [id number] Use TENS [facility] ELECTRODES 1-22 unit at ity of (TENS UNITS 00:00: least 2 [place] ELECTRODES) 00 times a Medic al 2X2 " Pads day as Branch needed for pain. TENS UNIT 2016-03 Yes [id number] Use TENS [facility] ELECTRODES 1-22 unit at ity of (TENS UNITS 00:00: least 2 [place] [facility] ELECTRODES) 00 times a Medic al 2X2 " Pads day as Branch needed for pain. TENS UNIT 2016-03 Yes [id number] Use TENS [facility] ELECTRODES 1-22 unit at ity of (TENS UNITS 00:00: least 2 [place] ELECTRODES) 00 times a Medic al 2X2 " Pads day as Branch needed for pain. TENS UNIT 2016-03 Yes [id number] Use TENS [facility] ELECTRODES 1-22 unit at ity of (TENS UNITS 00:00: least 2 [place] [facility] ELECTRODES) 00 times a Medic al 2X2 " Pads day as Branch needed for pain. TENS UNIT 2016-03 Yes [id number] Use TENS [facility] ELECTRODES 1-22 unit at ity of (TENS UNITS 00:00: least 2 [place] [facility] ELECTRODES) 00 times a Medic al 2X2 " Pads day as Branch needed for pain. TENS UNIT 2016-03 Yes [id number] Use TENS [facility] ELECTRODES 1-22 unit at ity of (TENS UNITS 00:00: least 2 [place] [facility] ELECTRODES) 00 times a Medic al 2X2 " Pads day as Branch needed for pain. TENS UNIT 2016- Yes [id number] Use TENS [facility] ELECTRODES 1-22 unit at ity of (TENS UNITS 00:00: least 2 [place] as ELECTRODES) 00 times a Medic al 2X2 " Pads day as Branch needed for pain. TENS UNIT 2016- Yes [id number] Use TENS [facility] ELECTRODES 1-22 unit at ity of (TENS UNITS 00:00: least 2 [place] [facility] ELECTRODES) 00 times a Medic al 2X2 " Pads day as Branch needed for pain. TENS UNIT 2016-03 Yes [id number] Use TENS [facility] ELECTRODES 1-22 unit at ity of (TENS UNITS 00:00: least 2 [place] as ELECTRODES) 00 times a Medic al 2X2 " Pads day as Branch needed for pain. TENS UNIT 2016-03 Yes [id number] Use TENS [facility] ELECTRODES 1-22 unit at ity of (TENS UNITS 00:00: least 2 [place] as ELECTRODES) 00 times a Medic al 2X2 " Pads day as Branch needed for pain. TENS UNIT 2016-03 Yes [id number] Use TENS [facility] ELECTRODES 1-22 unit at ity of (TENS UNITS 00:00: least 2 [place] as ELECTRODES) 00 times a Medic al 2X2 " Pads day as Branch needed for pain. TENS UNIT 2016-03 Yes [id number] Use TENS [facility] ELECTRODES 1-22 unit at ity of (TENS UNITS 00:00: least 2 [place] as ELECTRODES) 00 times a Medic al 2X2 " Pads day as Branch needed for pain. TENS UNIT 2016-03 Yes [id number] Use TENS [facility] ELECTRODES 1-22 unit at ity of (TENS UNITS 00:00: least 2 [place] as ELECTRODES) 00 times a Medic al 2X2 " Pads day as Branch needed for pain. TENS UNIT 2016- Yes [id number] Use TENS [facility] ELECTRODES 1-22 unit at ity of (TENS UNITS 00:00: least 2 [place] as ELECTRODES) 00 times a Medic al 2X2 " Pads day as Branch needed for pain. TENS UNIT 2016- Yes [id number] Use TENS [facility] ELECTRODES 1-22 unit at ity of (TENS UNITS 00:00: least 2 [place] as ELECTRODES) 00 times a Medic al 2X2 " Pads day as Branch needed for pain. TENS UNIT 2016- Yes [id number] Use TENS [facility] ELECTRODES 1-22 unit at ity of (TENS UNITS 00:00: least 2 [place] as ELECTRODES) 00 times a Medic al 2X2 " Pads day as Branch needed for pain. TENS UNIT 2016-03 Yes [id number] Use TENS [facility] ELECTRODES 1-22 unit at ity of (TENS UNITS 00:00: least 2 [place] as ELECTRODES) 00 times a Medic al 2X2 " Pads day as Branch needed for pain. TENS UNIT 2016-03 Yes [id number] Use TENS [facility] ELECTRODES 1-22 unit at ity of (TENS UNITS 00:00: least 2 [place] as ELECTRODES) 00 times a Medic al 2X2 " Pads day as Branch needed for pain. TENS UNIT 2016-03 Yes [id number] Use TENS [facility] ELECTRODES 1-22 unit at ity of (TENS UNITS 00:00: least 2 [place] as ELECTRODES) 00 times a Medic al 2X2 " Pads day as Branch needed for pain. TENS UNIT 2016-03 Yes [id number] Use TENS [facility] ELECTRODES 1-22 unit at ity of (TENS UNITS 00:00: least 2 [place] as ELECTRODES) 00 times a Medic al 2X2 " Pads day as Branch needed for pain. TENS UNIT 2016-03 Yes [id number] Use TENS [facility] ELECTRODES 1-22 unit at ity of (TENS UNITS 00:00: least 2 [place] as ELECTRODES) 00 times a Medic al 2X2 " Pads day as Branch needed for pain. TENS UNIT 2016-03 Yes [id number] Use TENS [facility] ELECTRODES 1-22 unit at ity of (TENS UNITS 00:00: least 2 [place] as ELECTRODES) 00 times a Medic al 2X2 " Pads day as Branch needed for pain. TENS UNIT 2016-03 Yes [id number] Use TENS [facility] ELECTRODES 1-22 unit at ity of (TENS UNITS 00:00: least 2 [place] as ELECTRODES) 00 times a Medic al 2X2 " Pads day as Branch needed for pain. TENS UNIT 2016- Yes [id number] Use TENS [facility] ELECTRODES 1-22 unit at ity of (TENS UNITS 00:00: least 2 [place] as ELECTRODES) 00 times a Medic al 2X2 " Pads day as Branch needed for pain. TENS UNIT 2016- Yes [id number] Use TENS [facility] ELECTRODES 1-22 unit at ity of (TENS UNITS 00:00: least 2 [place] as ELECTRODES) 00 times a Medic al 2X2 " Pads day as Branch needed for pain. TENS UNIT 2016-03 Yes [id number] Use TENS [facility] ELECTRODES 1-22 unit at ity of (TENS UNITS 00:00: least 2 [place] as ELECTRODES) 00 times a Medic al 2X2 " Pads day as Branch needed for pain. TENS UNIT 2016-03 Yes [id number] Use TENS [facility] ELECTRODES 1-22 unit at ity of (TENS UNITS 00:00: least 2 [place] as ELECTRODES) 00 times a Medic al 2X2 " Pads day as Branch needed for pain. TENS UNIT 2016-03 Yes [id number] Use TENS [facility] ELECTRODES 1-22 unit at ity of (TENS UNITS 00:00: least 2 [place] as ELECTRODES) 00 times a Medic al 2X2 " Pads day as Branch needed for pain. TENS UNIT 2016-03 Yes [id number] Use TENS [facility] ELECTRODES 1-22 unit at ity of (TENS UNITS 00:00: least 2 [place] as ELECTRODES) 00 times a Medic al 2X2 " Pads day as Branch needed for pain. TENS UNIT 2016-03 Yes [id number] Use TENS [facility] ELECTRODES 1-22 unit at ity of (TENS UNITS 00:00: least 2 [place] as ELECTRODES) 00 times a Medic al 2X2 " Pads day as Branch needed for pain. TENS UNIT 2016-03 Yes [id number] Use TENS [facility] ELECTRODES 1-22 unit at ity of (TENS UNITS 00:00: least 2 [place] as ELECTRODES) 00 times a Medic al 2X2 " Pads day as Branch needed for pain. TENS UNIT 2016-03 Yes [id number] Use TENS [facility] ELECTRODES 1-22 unit at ity of (TENS UNITS 00:00: least 2 [place] as ELECTRODES) 00 times a Medic al 2X2 " Pads day as Branch needed for pain. TENS UNIT 2016-03 Yes [id number] Use TENS [facility] ELECTRODES 1-22 unit at ity of (TENS UNITS 00:00: least 2 [place] as ELECTRODES) 00 times a Medic al 2X2 " Pads day as Branch needed for pain. atorvastati 2016-03 No Notes: [place] n 0-01 (Same As: l 02:00: Lipitor) Metformin 2016-03 Yes 500 mg, Memor ia 0-01 PO, Daily, l 00:31: 0 Refill(s) sertraline 2016-03 Yes 100 mg = 1 M emoria 100 mg oral 0-01 tab, PO, l tablet 00:31: Daily, 0 [...] F/P l 10:01: - Black; E - [facility] Trash Bin Stable for 28 days at [...] PO, l 1.33 MEQ/ML 03:34: Drug form: Demar Oral LIQ, ONCE, Solution Dosing Weight 63.636, kg, Priority: STAT, Start date: 12/15/16 22:34:00 CDT, Stop date: 12/15/16 22:34:00 CDT Tylenol No 1,000 mg, Memor ia 12-16 Route: PO, l 02:28: ONCE, Dosing Weight 63.636, kg, Start date: 12/15/16 21:28:00 CDT, Stop date: 12/15/16 21:28:00 CDT metformin Yes [id number] 500mg Take 1 [facility] ER 500 mg 9-08 tablet by ity o f 24 hr 00:00: mouth [place] tablet 00 daily with Medical breakfast. [place] metformin Yes [id number] 500mg Take 1 [facility] ER 500 mg 9-08 tablet by ity o f 24 hr 00:00: mouth [place] tablet 00 daily with Medical breakfast. Branch metformin Yes [id number] 500mg Take 1 [facility] ER 500 mg 9-08 tablet by ity o f 24 hr 00:00: mouth [place] tablet 00 daily with Medical breakfast. Branch metformin Yes [id number] 500mg Take 1 [facility] ER 500 mg 9-08 tablet by ity o f 24 hr 00:00: mouth [place] tablet 00 daily with Medical breakfast. [place] metformin Yes [id number] 500mg Take 1 [facility] ER 500 mg 9-08 tablet by ity o f 24 hr 00:00: mouth [place] tablet 00 daily with Medical breakfast. [place] metformin Yes [id number] 500mg Take 1 [facility] ER 500 mg 9-08 tablet by ity o f 24 hr 00:00: mouth [place] tablet 00 daily with Medical breakfast. Branch metformin Yes [id number] 500mg Take 1 [facility] ER 500 mg 9-08 tablet by ity o f 24 hr 00:00: mouth [place] tablet 00 daily with Medical breakfast. Branch metformin Yes [id number] 500mg Take 1 [facility] ER 500 mg 9-08 tablet by ity o f 24 hr 00:00: mouth [place] tablet 00 daily with Medical breakfast. Branch metformin Yes [id number] 500mg Take 1 [facility] ER 500 mg 9-08 tablet by ity o f 24 hr 00:00: mouth [place] tablet 00 daily with Medical breakfast. Branch metformin Yes [id number] 500mg Take 1 [facility] ER 500 mg 9-08 tablet by ity o f 24 hr 00:00: mouth [place] tablet 00 daily with Medical breakfast. Branch metformin Yes [id number] 500mg Take 1 [facility] ER 500 mg 9-08 tablet by ity o f 24 hr 00:00: mouth [place] tablet 00 daily with Medical breakfast. Branch metformin Yes [id number] 500mg Take 1 [facility] ER 500 mg 9-08 tablet by ity o f 24 hr 00:00: mouth [place] tablet 00 daily with Medical breakfast. Branch metformin Yes [id number] 500mg Take 1 [facility] ER 500 mg 9-08 tablet by ity o f 24 hr 00:00: mouth [place] tablet 00 daily with Medical breakfast. Branch metformin Yes [id number] 500mg Take 1 [facility] ER 500 mg 9-08 tablet by ity o f 24 hr 00:00: mouth [place] tablet 00 daily with Medical breakfast. Branch metformin 2019- No [id number] 500mg Take 1 [facility] ER 500 mg 9-08 -29 tablet by ity of 24 hr 00:00: 00:00 mouth [place] tablet 00 :00 daily with Medical breakfast. Branch metformin 2019- No [id number] 500mg Take 1 [facility] ER 500 mg 9-08 -29 tablet by ity of 24 hr 00:00: 00:00 mouth [place] tablet 00 :00 daily with Medical breakfast. [place] sertraline Yes 100 mg = 2 M emoria 50 mg oral 4-25 tab, PO, l tablet 14:06: Daily, 0 Otis 00 Refill(s) lactobacill Yes 1 tab, PO, Memoria us 4-25 Daily, 0 l acidophilus 14:06: Refill(s) H ermann 00 Glipizide 5 Yes 5 mg = 1 Me moria MG Oral 4-25 tab, PO, l Tablet 14:06: Q5PM, 0 Demar 00 Refill(s) Baclofen Yes 317.8 mcg, Mem oria 4-25 INTRATHECA l 14:06: L, Otis 00 Continuous , PRN Other -See Comment, [...] 4-25 supp, HI, l rectal 14:06: Bedtime, Otis suppository 00 PRN Constipati on, 0 Refill(s) [...] tab, PO, l tablet 14:06: Daily, 0 Otis 00 Refill(s) Nystatin Yes 1 appl, Memori a [id number] 4-25 TOP, l UNT/ML 14:06: QSHIFT, 0 [...] a 4-21 (Same as: l 22:00: Glucotrol) Otis 00 30 min before meals. lactobacill No [...] Flonase) Demar MG/ACTUAT 00 Metered Dose Nasal [place] [Flonase] Amoxicillin No Notes: [place] 875 MG / 4-19 With food. l Clavulanate 18:00: (Same as: H ermann 125 MG Oral 00 Augmentin Tablet 875) [Augmentin 875-mg] Oxymetazoli No Notes: [place] ne 4-19 (Same as: l hydrochlori 14:12: Afrin) Herm shelton de 0.5 00 MG/ML Nasal [place] [Afrin] Zyrtec No Notes: Memoria 4-19 (Same As: l 02:00: Zyrtec) Demar 00 Nasal Moist No Notes: [place] 0.65% 4-18 (Same as: l solution 14:00: Motley, Demar [place] Nasal [place]). Nasal Mist No 2 spray, Mem oria 0.05% nasal 4-18 Route: l spray 02:00: NASAL, Demar 00 Dosing Weight 120.455, kg, BID, Start date: 07/03/16 21:00:00 CDT, Duration: 30 day, Stop date: 08/02/16 8:30:00 CDT Nasal Moist No Notes: [place] 0.65% 4-17 (Same as: l solution 19:00: Motley, Demar Deep Sea Nasal [place]). Metformin No Notes: Memori a 4-17 (Same as: l 13:00: Glucophage Demar 00 ) Take with meal guaiFENesin No Notes: [place] liquid 100 4-16 (Same as: l mg/ 5 mL 23:00: Robitussin Her adams ) Tylenol No Notes: Do Memor ia 4-13 not exceed l 18:22: 4 gm/day. Otis 00 (Same as: Tylenol) Adderall No Notes: Memoria 4-13 Non-Formul l 11:30: daryl drug. Dextroamph etamine and Amphetamin e derivative s. (Same as: Adderall) Aricept No Notes: Memoria 4-13 (Same as: l 02:00: Aricept) Otis 00 Propranolol No Notes: [place] 4-11 Give with l 02:00: food. Demar 00 (Same as: Inderal) Metformin No Notes: Memori a 4-10 (Same as: l 22:00: Glucophage Otis 00 ) Take with meal Albuterol No Notes: Memori a 0.833 MG/ML 4-10 (Same as: l / 15:32: Duoneb) Demar Ipratropium 00 [place] 0.167 MG/ML Inhalant Solution [DuoNeb] Acetaminoph No Notes: Max Memoria en 06-23 acetaminop l 17:00: hen 4000 Otis 00 mg/day (4 gm/day). (Same as: Tylenol Extra Strength) Flomax No Notes: Memoria 4-07 (Same As: l 13:30: Flomax) Demar 00 "Do Not Crush" Albuterol No Notes: Memori a 0.833 MG/ML 07 (Same as: l / 00:30: Duoneb) Otis Ipratropium 00 [place] 0.167 MG/ML Inhalant Solution magnesium No Notes: Memori a citrate -06 (Same as: l 58.2 MG/ML 19:03: Citrate of H ermann Oral 00 Magnesia) Solution Concentrat ion: 1.745 gm / 30 mL sennosides, No Notes: [place] [facility] 4-06 (Same as: l 13:30: Senokot) Otis 00 Nystatin No Notes: Memoria [id number] 4-06 (Same l UNT/ML 06:00: as:Mycosta [place]iqu[place] nn Topical 00 tin Cream Nilstat) for external use only. Biofreeze No 1 appl, Memor ia 4-06 Route: l 02:00: TOP, TID, Otis 00 Start date: 06/21/16 21:00:00 CDT, Duration: 30 day, Stop date: 07/21/16 13:00:00 CDT Docusate No Notes: Memoria Sodium 100 4-06 (Same as: l MG Oral 02:00: Colace) [place]is Capsule 00 (Do Not [Colace] Crush) atorvastati No Notes: [place] n 4-06 (Same As: l 02:00: Lipitor) Demar 00 Propranolol No Notes: [place] 4-06 Give with l 02:00: food. Demar 00 (Same as: Inderal) Insulin, No Notes: Memoria Aspart, -05 Roll in l Human 22:13: palms of Otis hands gently; Do not shake vigorously . [...] day, Stop date: 08/20/16 17:12:00 CDT Glucagon 2016- No 1 mg, Memoria 06-21 Route: IM, l 22:13: Drug form: Otis 00 PDR/INJ, PRN, Dosing Weight 120.591, kg, PRN Blood Glucose Results, Start date: 06/21/16 17:13:00 CDT, Duration: 60 day, Stop date: 08/20/16 17:12:00 CDT Glucagon 2016-0 No 1 mg, Memoria 05 Route: IM, l 17:57: Drug form: [place] 00 PDR/INJ, PRN, Dosing Weight 120.591, kg, PRN Blood Glucose Results, Start date: 06/21/16 12:57:00 CDT, Duration: 30 day, Stop date: 07/21/16 12:56:00 CDT Dextrose 2016-0 No 25 gm, 50 [place] 50% Syringe 4-05 mL, Route: l 17:57: IVP, Drug Demar 00 Form: INJ, Dosing Weight 120.591, kg, PRN, PRN Blood Glucose Results, Start date: 06/21/16 12:57:00 CDT, Duration: 30 day, Stop date: 07/21/16 12:56:00 CDT Provigil No Notes: Memoria 4-05 (Same l 17:00: as:Provigi Otis 00 l) Milk of No Notes: Memoria Magnesia 4-05 (Same as: l 15:55: Milk of Magnesia, MOM) Sertraline No Notes: Memor ia 4-05 (Same as: l 13:30: Zoloft) Demar gabapentin No Notes: Memor ia 300 MG Oral 05 (Same as: l Capsule 02:00: Neurontin) Herm shelton 00 Propranolol No Notes: [place] 4-05 Take with l 02:00: food. Do Demar not crush or chew. (Same as: Inderal [place]) Melatonin 3 No Notes: [place] MG Extended 06-21 (Same as: l Release 02:00: Melatonin) Herm shelton Tablet 00 Enoxaparin No 40 mg, Memor ia 04 Route: l 23:00: SUB-Q, Otis Drug form: INJ, [id number], Dosing Weight 120.591, kg, Start date: 06/20/16 18:00:00 CDT, Duration: 30 day, Stop date: 07/19/16 18:00:00 CDT saliva No Notes: Memoria substitutes 4-04 Same as l 22:35: Biotene Demar 00 Oral Balance Ambien No Notes: Memoria 4-04 (Same As: l 22:32: Ambien) Demar Baclofen No Notes: For Mem oria 4-04 INTRATHECA l 22:30: L use only. Preservati ve free. (Same As: Lioresal, Gablofen). tramadol No Notes: Not Mem oria hydrochlori 4-04 to exceed l de 50 MG 22:30: 400mg/day. Her adams Oral Tablet 00 (Same As: Ultram) Levetiracet No Notes: [place] am 4-04 Same as l 22:17: Keppra Mix Otis with 100 mL NS, LR or D5W MEDICATION WASTE Product Size: 500 mg Product Wasted: ___ mg Midazolam No 40 kg Memori a 06-20 l 22:17: Demar 00 Melatonin No Notes: Memori a 06-20 (Same as: l 22:17: Melatonin) Otis Acetaminoph No Notes: Max Memoria en 06-20 acetaminop l 22:17: hen 4000 Otis 00 mg/day (4 gm/day). (Same as: Tylenol Extra Strength) Saline No Notes: Memoria Flush 0.9% 06-20 (Same as: l 22:17: BD Otis Posiflush) Bisacodyl No Notes: Memori a 06-20 [...] 50 mg = 1 [place] hydrochlori 07 tab, PO, l de 50 MG 23:23: BID, X 15 Herm shelton Oral Tablet 00 day, # 30 tab, 0 Refill(s) Promethazin Yes 12.5 mg = M emoria e 207 1 tab, PO, l Hydrochlori 23:23: Q6H, PRN He rmann de 12.5 MG 00 Nausea & Oral Tablet Vomiting, [Phenergan] X 7 day, # 28 tab, 0 Refill(s), Pharmacy: [facility] [id number] Phenergan No Notes: Do Mem oria 04-25 not give l 21:29: IV push. Demar 00 (Same as: Phenergan) Acetaminoph No Notes: [place] en 325 MG / 04-25 (Same as: l Hydrocodone 21:29: [place] Chiquita nn Bitartrate 00 325/5) Do 5 MG Oral not exceed Tablet 4gm/day of [[place] acetaminop 5/325] hen. Acetaminoph Yes 1 - 2 tab, Memoria en 300 MG / 1-14 PO, Q6H, l Codeine 03:25: PRN Pain, Chiquita nn Phosphate 00 X 4 day, # 60 MG Oral 32 tab, 0 Tablet Refill(s) [Tylenol with Codeine #4] Acetaminoph Yes Notes: Do M emoria en 325 MG / 1-14 not exceed l Hydrocodone 03:24: 4gm/day of [place] Bitartrate 00 acetaminop 10 MG Oral hen. (Same Tablet as: [place] [[place] 325/10) 10/325] Ketamine Yes 100 mg, 10 Mem oria 1-14 mL, Route: l 00:19: IVP, Drug form: INJ, ONCE, Dosing Weight 115.455, kg, Priority: STAT, Start date: 03/31/16 18:19:00 PEDIATRIC CRITICAL CARE NURSE, Stop date: 03/31/16 18:19:00 PEDIATRIC CRITICAL CARE NURSE Propofol Yes Notes: If [place] 14 Diprivan - l 00:19: change Demar 00 bottle & tubing every 12 hr Per state nursing law propofol can only be given by a nurse if patient is intubated or being intubated (unless the nurse is a [employer]CIAL [employer]ING [employer]ER). Same as: Diprivan Morphine No Notes: Memoria 1-13 (Same l 23:43: as:MORPhin Demar 00 e Sulfate) Zofran No Notes: Memoria 1-13 (Same as: l 23:43: Zofran) Demar 00 [...] tab, PO, l tablet 23:05: Daily, X Demar 00 30 day, # 15 tab, 0 [...] 0-13 S&SPIT, l oral 23:05: Daily, PRN Demar solution 00 Other -See Comment | dry [...] supp, PO, l rectal 23:05: Daily, X Otis suppository 00 30 day, # 30 supp, 0 Refill(s) acetaminoph 2015-03 Yes 100.4 F, M emoria en 325 mg 0-13 X 30 day, l oral tablet 23:05: # 180 tab, Otis 00 0 Refill(s) Bacitracin 2015-03 No 1 appl, [place] 0-10 Route: l 23:00: TOP, Q6H, Demar 00 Drug form: OINT, Start date: 12/27/15 18:00:00 CDT, Duration: 30 day, Stop date: 01/26/16 12:00:00 PEDIATRIC CRITICAL CARE NURSE Zyrtec 2015-03 No Notes: Memoria 0-10 (Same As: l 13:30: Zyrtec) Otis 00 Tears 2015-03 No 1 drp, Memoria Naturale 0-09 Route: l 18:00: Each Affected Eye, TID, Drug form: SOLN, Start date: 12/26/15 13:00:00 CDT, Duration: 30 day, Stop date: 01/25/16 8:30:00 PEDIATRIC CRITICAL CARE NURSE Ketoconazol 2015-03 No Notes: [place] e 20 MG/ML 0-07 Non-Formul l Medicated 14:00: daryl Drug Herm shelton Shampoo 00 (Same [Nizoral] as:Nizoral Topical) Zoloft 2015-03 No Notes: Memoria 0-06 (Same as: l 02:00: Zoloft) Otis 00 Terbinafine 2015-03 No Notes: [place] hydrochlori 0-03 Same as: l de 10 MG/ML 02:00: LamISIL AT Otis Topical 00 Cream Tylenol No Notes: Do Memor ia 12-14 not exceed l 02:00: 4 gm/day. Demar (Same as: Tylenol) sennosides, No 1 tab, [place] [facility] 12-10 Route: PO, l 17:00: Drug Form: Demar 00 TAB, Dosing Weight 111.364, kg, Lunch, Start date: 12/11/15 12:00:00 CDT, Duration: 60 day, Stop date: 02/08/16 12:00:00 PEDIATRIC CRITICAL CARE NURSE Biotene No Notes: Memoria Oral 12-10 Same as: l Balance 12:00: Biotene Otis 00 with Calcium Non-formul daryl metoprolol No Notes: Memor ia tartrate 12-10 (Same as: l 02:00: Lopressor) Otis Mucinex Max No 2 tab, [place] Strength 12-10 Route: PO, l 02:00: Drug Form: Deamr ERTAB, Dosing Weight 65.909, kg, BID, Start date: 12/10/15 21:00:00 CDT, Duration: 60 day, Stop date: 02/08/16 8:30:00 PEDIATRIC CRITICAL CARE NURSE Docusate No Notes: Memoria Sodium 100 12-10 (Same as: l MG Oral 02:00: Colace) Demar Capsule 00 (Do Not [Colace] Crush) gabapentin No Notes: Memor ia 300 MG Oral 12-10 (Same as: l Capsule 02:00: Neurontin) Herm shelton 00 Zoloft No Notes: Memoria 12-10 (Same as: l 02:00: Zoloft) Demar Trazodone No Notes: Memori a Hydrochlori 12-10 (Same As: l de 50 MG 02:00: Desyrel) Chiquita nn Oral Tablet 00 Pyridium No Notes: Memoria 12-10 Give with l 00:30: meals. Demar (Same as: Pyridium) lidocaine No Notes: Memori a topical 2% 12-10 (Same as: l gel with 00:21: Xylocaine Herm shelton applicator 00 Jelly, Anestacon) baclofen No Notes: For Mem oria 12-09 INTRATHECA l 22:30: L use Demar 00 only. Preservati ve free. (Same As: Lioresal, Gablofen). Midazolam No 40 kg Memori a 12-09 l 22:13: Demar 00 Acetaminoph No Notes: Do M emoria en 325 MG / 12-09 not exceed l Hydrocodone 22:13: 4gm/day of Demar Bitartrate 00 acetaminop 10 MG Oral hen. (Same Tablet as: [place] [[place] 325/10) 10/325] Dulcolax No Notes: Memoria Laxative [...] Duration: 60 day, Stop date: 02/08/16 17:12:00 PEDIATRIC CRITICAL CARE NURSE Trazodone No 25 mg, Memori a 12-09 Route: PO, l 22:13: Drug form: TAB, Bedtime, Dosing Weight 111.364, kg, PRN Insomnia, Start date: 12/10/15 17:13:00 CDT, Duration: 60 day, Stop date: 02/08/16 17:12:00 PEDIATRIC CRITICAL CARE NURSE Pyridium No Notes: Memoria 12-09 Give with l 17:00: meals. (Same as: Pyridium) Phenazopyri Yes 100 mg, [...] 0.9% 12-09 (Same as: l 02:00: BD Otis Posiflush) Docusate No Notes: Memoria 12-09 (Same as: l 02:00: Colace) Demar (Do Not Crush) sennosides, No Notes: [place] [facility] 12-09 (Same as: l 02:00: Senokot) Demar 00 Dilaudid No Notes: Memoria 12-09 (Same as: l 00:17: Dilaudid) ceFAZolin No Notes: Memori a (SCIP) + 12-08 (Same As: l sodium 23:00: Ancef, Demar chloride Kefzol) 0.9% INJ Cefazolin 100 mL FOR IV SET ONLY MEDICATION WASTE Product Size: 1000 mg Product Wasted: _0__ mg Morphine No Notes: Memoria 12-08 (Same l 16:52: as:MORPhin e Sulfate) Acetaminoph No Notes: Max Memoria en 12-08 acetaminop l 16:52: hen 4000 mg/day (4 gm/day). (Same as: Tylenol Extra [...] 0.9% 12-08 (Same as: l 16:23: BD Demar 00 Posiflush) Ondansetron No Notes: [place] 12-08 (Same as: l 16:23: Zofran) Otis 00 MEDICATION WASTE Product Size: 4 mg Product Wasted: ___ mg Sodium No 1,000 mL, Memori a Chloride 12-08 Rate: 75 l 0.154 16:23: ml/hr, Demar MEQ/ML 00 Infuse Injectable over: 13.3 Solution hr, Route: IV, Dosing Weight 111.364 kg, Total Volume: 1,000, Start date: 12/09/15 11:23:00 CDT, Duration: 30 day, Stop date: 01/08/16 11:22:00 CDT Acetaminoph No Notes: [place] en 325 MG / 12-08 (Same as: l Hydrocodone 16:23: [place] Chiquita nn Bitartrate 00 325/5) Do 5 MG Oral not exceed Tablet 4gm/day of acetaminop hen. Morphine No Notes: Memoria 12-08 (Same l 16:23: as:MORPhin Otis 00 e Sulfate) ceFAZolin No 3 gm, Memoria (SCIP) 12-08 Route: l 14:26: IVP, Drug Demar 00 form: INJ, ONCE, Dosing Weight 111.364, [...] moria 12-07 Bedtime, 0 l 16:13: Refill(s) Otis 00 midazolam 5 Yes IM, ONCE, M [...] a Mouthwash 12-07 Refill(s) l oral 16:03: Demar solution 00 metoprolol Yes 50 mg = 1 Me moria 50 mg oral 12-07 tab, PO, l tablet, 15:48: BID, 0 Demar extended 00 Refill(s) release Zofran No Notes: Memoria 12-06 (Same as: l 16:31: Zofran) Otis 00 Biotene No Notes: Memoria Oral 12-05 Same as: l Balance 12:00: Biotene Otis 00 with Calcium Non-formul daryl sennosides, No Notes: [place] [facility] 12-03 (Same as: l 17:00: Senokot) Trazodone No Notes: Memori a 11-25 (Same As: l 18:54: Desyrel) Otis Botulinum No Notes: "TO Me moria Toxin Type 11-25 BE l A 17:00: RECONSTITU Otis 00 YANELY AND ADMINISTER ED ONLY BY A PHYSICIAN" Reconstitu te with preservati ve free NS only. Stability = 4 hours after reconstitu tion. (Same As: Botox) WASTE: F/P - Red; E -Red Trazodone No Notes: Memori a Hydrochlori 11-23 (Same As: l de 50 MG 02:00: Desyrel) Chiquita nn Oral Tablet 00 Midazolam No 40 kg Memori a 9-06 l 16:20: Otis 00 Botulinum No Notes: "TO Me moria Toxin Type 9- BE l A 20:00: RECONSTITU Demar 00 YANELY AND ADMINISTER ED ONLY BY A PHYSICIAN" Reconstitu te with preservati ve free NS only. Stability = 4 hours after reconstitu tion. (Same As: Botox) WASTE: F/P - Red; E -Red Baclofen No Notes: Memoria 11-18 (Same As: l 13:30: Lioresal) Mederma No 1 appl, Memoria 11-12 Route: l 02:00: TOP, Demar Dosing Weight 111.364, kg, BID, Start date: 11/12/15 21:00:00 CDT, Duration: 30 day, Stop date: 12/12/15 8:30:00 CDT metoprolol No Notes: Memor ia tartrate 11-12 (Same as: l 02:00: Lopressor) Tylenol No Notes: Do Memor ia 11-11 not exceed l 16:57: 4 gm/day. Demar 00 (Same as: Tylenol) Dulcolax No Notes: Memoria Laxative 11-11 (Same As: l 16:48: Dulcolax, Bisco-Lax) baclofen No Notes: For Mem oria 11-10 INTRATHECA l 00:00: L use only. Preservati ve free. (Same As: Lioresal) Tylenol No 100.4 F, Memor ia 11-09 Start l 12:33: date: Demar 00 11/10/15 7:33:00 CDT, Duration: 30 day, Stop date: 12/10/15 7:32:00 CDT Acetaminoph No Route: PO, Memoria en 325 MG / 11-09 Drug Form: l Hydrocodone 05:00: TAB, Mauricio n Bitartrate 00 Dosing 10 MG Oral Weight Tablet 65.909, [[place] kg, Q6H, 10/325] Start date: 11/10/15 0:00:00 CDT, Duration: 30 day, Stop date: 12/09/15 18:00:00 CDT Lorazepam No Notes: Memori a 8-24 (Same as: l 03:04: Ativan) Otis 00 Levetiracet No Notes: [place] am 11-09 [...] Laxative 11-09 (Same As: l 02:27: Dulcolax, Demar 00 Bisco-Lax) Bisacodyl No Notes: Memori a 11-09 (Same As: l 02:05: Dulcolax, Otis 00 Bisco-Lax) Acetaminoph No Notes: Do M emoria en 325 MG / 11-09 not exceed l Hydrocodone 02:02: 4gm/day of Demar Bitartrate 00 acetaminop 10 MG Oral hen. (Same Tablet as: [place] [[place] 325/10) 10/325] Docusate No Notes: Memoria Sodium 100 11-09 (Same as: l MG Oral 02:00: Colace) Otis Capsule 00 (Do Not [Colace] Crush) Baclofen No Notes: Memoria 8-24 (Same As: l 02:00: Lioresal) Demar 00 Mucinex Max No Notes: [place] Strength 8-24 (Same as: l 02:00: Guaifenesi Demar 00 n LA, Humibid LA, Mucinex) "Do Not Crush" Take medication with plenty of water. Zoloft No Notes: Memoria 8-24 (Same as: l 02:00: Zoloft) Otis 00 Inderal No Notes: Memoria 8-24 Take with l 02:00: food. Do Demar 00 not crush or chew. (Same as: Inderal [place]) gabapentin No Notes: Memor ia 300 MG Oral 11-09 (Same as: l Capsule 02:00: Neurontin) Lovenox No Notes: Memoria 24 (Same as: l 02:00: Lovenox) Tylenol No [...] tab, 10 MG Oral 0 Tablet Refill(s) [[place] 10/325] tramadol No 50 mg = 1 [...] tab, PO, l tablet 14:41: QID, PRN Otis 00 Anxiety, 0 Refill(s) ondansetron No 4 mg, IV, M emoria 2 mg/mL 8- PRN, # 1 l injectable 14:41: ea, 0 Mauricio n solution 00 Refill(s) bisacodyl No 10 mg = 1 Mem oria 10 mg 8- supp, HI, l rectal 14:41: PRN, PRN Otis suppository 00 Constipati on, # 10 supp, 0 Refill(s) gabapentin No 300 mg = 1 M emoria 300 MG Oral 11-07 cap, PO, l Capsule 22:01: TID, # 90 Chiquita nn 00 cap, 0 Refill(s) baclofen 20 No 20 mg = 1 M emoria mg oral 11-07 tab, PO, l tablet 22:01: TID, # 270 Chiquita nn 00 tab, 0 Refill(s) Sertraline No 50 mg = 1 Me moria 50 MG Oral 11-07 tab, PO, l Tablet 22:01: Bedtime, 0 Chiquita nn [Zoloft] 00 Refill(s) Inderal No 60 mg, PO, [place] 11-07 Bedtime, # l 22:01: 100 tab, 0 Demar 00 Refill(s) 12 HR No 1,200 mg = Memori a Guaifenesin 11-07 1 tab, PO, l 1200 MG 22:01: BID, 0 Otis Extended 00 Refill(s) Release Tablet [Mucinex] Acetaminoph No 2 tabs, Mem oria en 325 MG / 11-07 PO, Q4H, 0 l Hydrocodone 22:01: Refill(s) H ermann Bitartrate 00 10 MG Oral Tablet [[place] 10/325] 0.4 ML No 40 mg, Memoria Enoxaparin 11-07 SUB-Q, l sodium 100 22:01: Q24H, 0 Herm shelton MG/ML 00 Refill(s) Prefilled Syringe [Lovenox] Lovenox No 0 Memoria 11-07 Refill(s) l 22:01: Otis 00 Ondansetron No Notes: [place] 6- (Same as: l 16:15: Zofran) Otis 00 MEDICATION WASTE Product Size: 4 mg Product Wasted: ___ mg Flumazenil No Notes: Memor ia 6- (Same as: l 16:15: Romazicon) Demar 00 Naloxone No Notes: Memoria 603 Same as l 16:15: Narcan Otis Labetalol 2016-0 No 10 mg, 2 [place] - mL, Route: l 16:15: IVP, Drug form: INJ, Q5Min, Dosing Weight 111.364, kg, PRN Elevated BP, Start date: 08/20/15 11:15:00 CDT, Duration: 5 doses or times, Stop date: Limited # of times Hydromorpho No Notes: [place] ne 08-19 Same as: l 16:15: Dilaudid Demar tramadol Yes 50 mg = 1 Tom [...] Memoria 08-01 Route: IV, l 13:33: ONCE, Demar 00 Dosing Weight 125, kg, Start date: 08/02/15 8:33:00 CDT, Stop date: 08/02/15 8:33:00 CDT Omnipaque No 150 mL, Memor ia 350 08-01 Route: l 13:33: INTRAARTER Otis IAL, Dosing Weight 125, kg, ONCE, Start date: 08/02/15 8:33:00 CDT, Stop date: 08/02/15 8:33:00 CDT Acetaminoph No Notes: [place] en 325 MG / 08-01 (Same as: l Hydrocodone 12:00: [place] Chiquita nn Bitartrate 00 325/5) Do 5 MG Oral not exceed Tablet 4gm/day of acetaminop hen. Acetaminoph No Notes: Do M emoria en 5-16 not exceed l 12:00: 4 gm/day. Demar 00 (Same as: Tylenol) Sodium No 1,000 mL, Memori a Chloride 5-16 Rate: 50 l 0.154 12:00: ml/hr, Otis MEQ/ML 00 Infuse Injectable over: 20 Solution hr, Route: IV, Dosing Weight 113.636 kg, Total Volume: 1,000, Priority: Routine, Start date: 08/02/15 7:00:00 CDT, Duration: 30 day, Stop date: 09/01/15 6:59:00 CDT Sodium No 1,000 mL, Memori a Chloride 5-16 Rate: 50 l 0.154 10:00: ml/hr, Otis MEQ/ML 00 Infuse Injectable over: 20 Solution hr, Route: IV, Dosing Weight 113.636 kg, Total Volume: 1,000, Priority: Routine, Start date: 08/02/15 5:00:00 CDT, Duration: 30 day, Stop date: 09/01/15 4:59:00 CDT Dexamethaso No Notes: [place] ne 5-16 Concentrat l 10:00: ion: Demar 00 4mg/ml Ondansetron No Notes: [place] 5-16 (Same as: l 10:00: Zofran) MEDICATION WASTE Product Size: 4 mg Product Wasted: ___ mg Famotidine No 20 mg, 2 Mem oria 5-16 mL, Route: l 10:00: IV, Drug form: INJ, ONCE, Dosing Weight 113.636, kg, Start date: 08/02/15 5:00:00 CDT, Stop date: 08/02/15 5:00:00 CDT Fentanyl No Notes: Memoria 5-16 (Same as: l 10:00: Sublimaze) Preservati ve free. Bupivacaine No Notes: [place] Hydrochlori 5-16 (bupivacai l de 2.5 10:00: ne-epi Otis MG/ML / 00 0.25%-1:20 Epinephrine 0,000 30 0.005 MG/ML ml VL) Not Injectable for use in Solution continuous infusion. (Same As: Marcaine w/Epi) Bacitracin 2015-0 No Notes: Memor ia 0.5 UNT/MG 5-16 (Same As: l / Polymyxin 10:00: Polysporin Demar B 10 UNT/MG 00 ) Topical Ointment [Polysporin ] Sodium 2016-0 No 1,000 mL, Memori a Chloride 5-10 Rate: 50 l 0.154 12:00: ml/hr, Demar MEQ/ML 00 Infuse Injectable over: 20 Solution hr, Route: IV, Dosing Weight 113.636 kg, Total Volume: 1,000, Priority: Routine, Start date: 07/27/15 7:00:00 CDT, Duration: 30 day, Stop date: 08/26/15 6:59:00 CDT Acetaminoph 2015-0 No 2 tab, [place] en 325 MG / 5-10 Route: PO, l Hydrocodone 12:00: Drug Form: Otis Bitartrate 00 TAB, 5 MG Oral Dosing Tablet Weight 113.636, kg, Q4H, PRN Pain Score 7-10, Start date: 07/27/15 7:00:00 CDT, Duration: 30 day, Stop date: 08/26/15 6:59:00 CDT Acetaminoph 2015-0 No 325 mg, Mem oria en 5-10 Route: PO, l 12:00: Drug form: Demar 00 TAB, Q4H, Dosing Weight 113.636, kg, PRN Pain Score 1-3, Start date: 07/27/15 7:00:00 CDT, Duration: 30 day, Stop date: 08/26/15 6:59:00 CDT Dexamethaso 2015-0 No 6 mg, Memor ia ne 5-10 Route: IV, l 10:00: Drug form: Demar 00 INJ, ONCE, Dosing Weight 113.636, kg, Start date: 07/27/15 5:00:00 CDT, Stop date: 07/27/15 5:00:00 CDT Ondansetron 2015-0 No 4 mg, Memor ia 5-10 Route: IV, l 10:00: Drug form: Demar 00 INJ, Q6H, Dosing Weight 113.636, kg, PRN Nausea & Vomiting, Start date: 07/27/15 5:00:00 CDT, Duration: 30 day, Stop date: 08/26/15 4:59:00 CDT Famotidine 2015-0 No 20 mg, Memor ia 5-10 Route: IV, l 10:00: Drug form: Otis 00 INJ, ONCE, Dosing Weight 113.636, kg, Start date: 07/27/15 5:00:00 CDT, Stop date: 07/27/15 5:00:00 CDT Bupivacaine 2015-0 No 30 mL, [place] Hydrochlori 5-10 Route: l de 2.5 10:00: MISC, Demar MG/ML / 00 Dosing Epinephrine Weight 0.005 MG/ML 113.636, Injectable kg, Solution ONCALL, Start date: 07/27/15 5:00:00 CDT, Duration: 30 day, Stop date: 08/26/15 4:59:00 CDT Fentanyl 2015-0 No 25 Memoria 5-10 microgram, l 10:00: Route: Demar 00 IVP, Q1H, Dosing Weight 113.636, kg, PRN Pain Score 6-10, Priority: Routine, Start date: 07/27/15 5:00:00 CDT, Duration: 1 doses or times, Stop date: Limited # of times Bacitracin 2015-0 No 1 appl, [place] 0.5 UNT/MG 5-10 Route: l / Polymyxin 10:00: TOP, Mauricio n B 10 UNT/MG 00 ONCALL, Topical Drug form: Ointment OINT, [Polysporin Priority: ] Routine, Start date: 07/27/15 5:00:00 CDT, Duration: 1 doses or times Sodium 2015-0 No 1,000 mL, Memori a Chloride 5-10 Rate: 50 l 0.154 10:00: ml/hr, Otis MEQ/ML 00 Infuse Injectable over: 20 Solution hr, Route: IV, Dosing Weight 113.636 kg, Total Volume: 1,000, Priority: Routine, Start date: 07/27/15 5:00:00 CDT, Duration: 30 day, Stop date: 08/26/15 4:59:00 CDT Lidocaine 2015-0 Yes 1 patch, [place] Hydrochlori 4-12 TOP, l de 0.05 13:33: Daily, PRN Herm shelton MG/MG 00 Pain Score Transdermal 1-5, Patch Remove [Lidoderm] after 12 hours, # 30 patch, 0 Refill(s), Pharmacy: [facility] [place] [id number] Docusate Yes 100 mg = 1 Mem oria Sodium 100 4-12 cap, PO, l MG Oral 13:33: BID, # 60 Chiquita nn Capsule 00 cap, 0 [Colace] Refill(s), Pharmacy: [facility] [place] [id number] gabapentin Yes 300 mg = 1 M emoria 300 MG Oral 4-12 cap, PO, l Capsule 13:33: Bedtime, # Herm shelton 00 30 cap, 0 Refill(s), Pharmacy: [facility] [place] [id number] baclofen 20 Yes 20 mg = 1 M emoria mg oral 4-12 tab, PO, l tablet 13:33: Bedtime, # Chiquita nn 00 30 tab, 0 Refill(s), Pharmacy: [facility] [place] [id number] baclofen 10 Yes 10 mg = 1 M emoria mg oral 4-12 tab, PO, l tablet 13:33: BID-10-29, Chiquita nn 00 # 60 tab, 0 Refill(s), Pharmacy: [facility] [place] [id number] sertraline Yes 200 mg = 2 M emoria 100 mg oral 4-12 tab, PO, l tablet 13:33: Bedtime, # Chiquita nn 00 60 tab, 0 Refill(s), Pharmacy: [facility] [place] [id number] senna 8.6 Yes 8.6 mg = 1 Me moria mg oral 4-12 tab, PO, l tablet 13:33: QNoon, # Otis 00 30 tab, 0 Refill(s), Pharmacy: [facility] [id number] propranolol Yes 60 mg = 1 M emoria 60 mg oral 4-12 cap, PO, l capsule, 13:33: Daily, # Chiquita nn extended 00 30 cap, 0 release Refill(s), Pharmacy: [facility] [id number] Lidocaine No 1 patch, [place] Hydrochlori 4-12 Route: l de 0.05 03:32: TOP, Otis MG/MG 00 Daily, Transdermal Drug form: Patch FILM, PRN [Lidoderm] Pain Score 1-5, Priority: Now, Start date: 06/28/15 22:32:00 CDT, Duration: 60 day, Stop date: 08/27/15 22:31:00 CDT, Remove after 12 hours remove No Notes: Memoria patch 4-12 Remove l 02:00: patch 12 Demar 00 [...] new patch" nichole, No Notes: [place] [facility] 06-18 (Same as: l 17:00: Senokot) Otis 00 phenol 6% No Notes: Memori a AQ in water 06-16 WASTE: F/P l for 22:00: - Black; E Otis injection 00 - Municipal Trash Bin Docusate No Notes: Memoria Sodium 100 06-16 (Same as: l MG Oral 02:00: Colace) Otis Capsule 00 (Do Not [Colace] Crush) Sertraline No Notes: Memor ia - (Same as: l 02:00: Zoloft) Otis 00 Milk of No Notes: Memoria Magnesia 3-30 (Same as: l 17:00: Milk of Demar 00 Magnesia, MOM) senna 8.6 No Notes: Memori a mg oral -30 (Same as: l tablet 14:58: Senokot) Demar 00 Sertraline No Notes: Memor ia 3-30 (Same as: l 02:00: Zoloft) Otis 00 Baclofen No Notes: Memoria 3-27 (Same As: l 02:00: Lioresal) Otis 00 Baclofen No Notes: Memoria 3-26 (Same As: l 13:00: Lioresal) Otis 00 Propranolol No Notes: [place] 3-24 Take with l 13:30: food. Do not crush or chew. (Same as: Inderal LA) Tylenol No Notes: Do Memor ia 3-24 not exceed l 11:51: 4 gm/day. (Same as: Tylenol) Sertraline No Notes: Memor ia 3-24 (Same as: l 02:00: Zoloft) gabapentin No Notes: Memor ia 100 MG Oral -24 (Same as: l Capsule 02:00: Neurontin) gabapentin No Notes: Memor ia 300 MG Oral -24 (Same as: l Capsule 02:00: Neurontin) Levetiracet No Notes: [place] am 06-08 Same as l 18:06: Keppra Mix with 100 mL NS, LR or D5W MEDICATION WASTE Product Size: 500 mg Product Wasted: ___ mg Lorazepam No Notes: Memori a 3-23 (Same as: l 18:06: Ativan) Saline No Notes: Memoria Flush 0.9% 23 (Same as: l 18:06: BD Posiflush) Baclofen No Notes: Memoria 3-23 (Same As: l 18:00: Lioresal) phenol 6% No 20 mL, Memori a AQ in water 05-23 Route: l for 16:00: NERVE Otis injection 00 BLOCK, Dosing Weight 111.364, kg, ONCALL, Start date: 05/24/15 10:00:00, Duration: 30 day, Stop date: 06/23/15 10:59:00 onabotulinu No 600 unit, M emoria mtoxinA 05-11 Route: IM, l 22:00: ONCALL Dosing Weight 111.364, kg, Start date: 05/11/15 16:00:00, Duration: 30 day, Stop date: 06/10/15 16:59:00 Acetaminoph No Notes: [place] en 325 MG / 2-09 (Same as: l Hydrocodone 17:34: [place] Chiquita nn Bitartrate 00 325/5) Do 5 MG Oral not exceed Tablet 4gm/day of [[place] acetaminop 5/325] hen. Ondansetron No Notes: [place] 04-27 (Same as: l 16:14: Zofran) MEDICATION WASTE Product Size: 4 mg Product Wasted: ___ mg Flumazenil No Notes: Memor ia 04-27 (Same as: l 16:14: Romazicon) Naloxone No Notes: Memoria 04-27 Same as l 16:14: Narcan Hydromorpho No Notes: [place] ne 04-27 Same as: l 16:14: Dilaudid Labetalol No 10 mg, 2 [place] 04-27 mL, Route: l 16:14: IVP, Drug form: INJ, Q5Min, Dosing Weight 111.364, kg, PRN Elevated BP, Start date: 04/27/15 10:14:00, Duration: 5 doses or times, Stop date: 04/28/15 0:00:00 Metoprolol No Notes: Memor ia 04-27 (Same as: l 16:14: Lopressor) Push over 2 minutes Omnipaque No Route: IV, Me moria 350 04-27 Dosing l 15:40: Weight 111.364, kg, ONCE, Start date: 04/27/15 9:40:00, Stop date: 04/27/15 9:40:00 tramadol Yes 50 mg = 1 [place] hydrochlori -02 tab, PO, l de 50 MG 12:09: Q6H, PRN Chiquita nn Oral Tablet 00 Pain, X 10 day, # 24 tab, 0 Refill(s) Acetaminoph No 2 tab, [place] en 325 MG / 09-17 Route: PO, l Hydrocodone 11:01: Drug Form: Demar Bitartrate 00 TAB, 5 MG Oral Dosing Tablet Weight [[place] 104.545, 5/325] kg, ONCE, STAT, Start date: 09/17/14 6:01:00, Stop date: 09/17/14 6:01:00 Fleet Enema 2013-03 No 133 ml, Mem oria 03-30 Route: HI, l 12:30: Drug Form: Otis 00 ROSY, Dosing Weight 75, kg, ONCE, NOW, Start date: 01/28/14 6:30:00, Stop date: 01/28/14 6:30:00 Acetaminoph 2013-03 Yes 1 tab, PO, Memoria en 300 MG / 03-30 Q4H, for l Codeine 11:21: pain, # 60 Herm shelton Phosphate 00 tab, 0 30 MG Oral Refill(s) Tablet [Tylenol with Codeine #3] Ondansetron 2013-03 Yes 4 mg = 1 Me moria 4 MG Oral 03-30 tab, PO, l Tablet 11:21: Q8H, # 30 Mauricio n [Zofran] 00 tab, 0 Refill(s) POLYETHYLEN 2013-03 Yes PO, Daily, Memoria E GLYCOL 03-30 0 l 3350 11:21: Refill(s) Demar heparin 2013-03 No Notes: Memoria 03-30 porcine l 06:00: heparin Otis magnesium 2013-03 No Notes: Memori a citrate 03-30 (Same as: l 04:59: Citrate of Magnesia) Ancef 2013-03 No 2 gm, Memoria 03-28 Route: l 20:54: IVPB, Otis ONCE, Dosing Weight 75, kg, Start date: 01/26/14 14:54:00, Duration: 1 doses or times, Stop date: 01/26/14 14:54:00 Sertraline 2013-03 No Notes: Memor ia 03-27 (Same as: l 03:00: Zoloft) Neurontin 2013-03 No Notes: Memori a 03-27 (Same as: l 03:00: Neurontin) Demar 00 Fleet Enema 2013-03 No 133 ml, Mem oria 03-26 Route: HI, l 19:00: Drug Form: Otis 00 ROSY, Dosing Weight 75, kg, ONCE, Start date: 01/24/14 13:00:00, Stop date: 01/24/14 13:00:00 sennosides, 2013-03 No 8.6 mg, 1 M emoria [facility] 8.6 MG 03-26 tab, l Oral Tablet 15:00: Route: PO, Otis Drug Form: TAB, Dosing Weight 75, kg, Q12H, Start date: 01/24/14 9:00:00, Duration: 30 day, Stop date: 02/22/14 21:00:00 gabapentin 2013-03 No 100 mg, 1 Me moria 100 MG Oral 03-26 cap, l Capsule 15:00: Route: PO, Herm shelton Drug form: CAP, Daily, Dosing Weight 75, kg, Start date: 01/24/14 9:00:00, Duration: 30 day, Stop date: 02/22/14 9:00:00 Escitalopra 2013-03 No 10 mg, Tom [place] m 03-26 Route: l 15:00: PEG, Drug Demar 00 form: TAB, Daily, Dosing Weight 75, kg, Start date: 01/24/14 9:00:00, Duration: 30 day, Stop date: 02/22/14 9:00:00 Amantadine 2013-03 No Notes: Memor ia -08 (Same as: l 15:00: Symmetrel) Demar 00 Baclofen 2013-03 No Notes: Memoria 1-08 (Same As: l 14:35: Lioresal) Demar 00 Fentanyl 2013-03 No Notes: Memoria 1-07 (Same as: l 18:04: Sublimaze) Otis 00 Preservati ve free. Lidocaine 2013-03 No Notes: Memori a Hydrochlori -07 (Same as: l de 10 MG/ML 18:04: Xylocaine) Otis Injectable 00 Solution heparin, 2013-03 No Notes: Memoria porcine 1-06 porcine l 22:00: heparin Otis 00 Miralax 2013-03 No Notes: Memoria 1-06 Dissolve l 16:55: in 8 oz of Otis 00 water or juice. (Same as: Miralax) Ancef + 2013-03 No Notes: Memoria Sodium 1-05 (Same As: l Chloride 23:00: Ancef, Demar 0.9% IV 100 00 Kefzol) mL Cefazolin FOR IV SET ONLY Demerol HCl 2013-03 No 12.5 mg, Me moria 1-05 Route: IV, l 19:00: ONCE, Dosing Weight 75, kg, Start date: 01/21/14 13:00:00, Stop date: 01/21/14 13:00:00 Fentanyl 2013-03 No Notes: Memoria 1-05 (Same as: l 16:20: Sublimaze) Preservati ve free. Hydromorpho 2013-03 No Notes: Tom [place] ne 1-05 Same as: l 16:20: Dilaudid Dexamethaso 2013-03 No Notes: Tom [place] ne 1-05 Concentrat l 16:20: ion: 4mg/ml Ondansetron 2013-03 No Notes: Tom [place] [...] gm, Memoria 1-05 Route: l 15:14: IVPB, ONCE, Dosing Weight 75, kg, Start date: 01/21/14 9:14:00, Duration: 1 doses or times, Stop date: 01/21/14 9:14:00 Saline 2013-03 No Notes: Memoria Flush 0.9% 1-05 (Same as: l 15:00: BD Posiflush) Levetiracet 2013-03 No Notes: Tom [place] am 1-05 (Same l 15:00: as:Keppra) sennosides, 2013-03 No Notes: Tom [place] 1-05 (Same as: l 15:00: Senokot) Docusate 2013-03 No Notes: Memoria Sodium 100 1-05 (Same as: l MG Oral 15:00: Colace) Demar Capsule 00 (Do Not Crush) pantoprazol 2013-03 No Notes: Tom [place] e 1-05 (Same as: l 15:00: Protonix) Escitalopra 2013-03 No 10 mg, Tom [place] m 03-23 Route: l 15:00: PEG, Demar 00 Daily, Dosing Weight 75, kg, Start date: 01/21/14 9:00:00, Duration: 30 day, Stop date: 02/19/14 9:00:00 Influenza 2013-03 No Notes: Memori a Virus 03-23 (Same as: l Vaccine, 15:00: Fluzone Mauricio n Inactivated 00 Quadrivale A-Agra- nt) (H3N2)-like virus ([facility] [place]-175C) strain / Influenza Virus Vaccine, Inactivated A-Agra, IVR-148 (H1N1) strain / Influenza Virus Vaccine, Inactivated , B---lik Seroquel 2013-03 No Notes: Memoria 03-23 (Same as: l 08:14: SEROquel) Ondansetron 2013-03 Yes Special Mem oria 4 MG 05 Instructio l Disintegrat 07:59: ns: Mauricio rizo [...] 1-05 tab, l tablet 07:59: Daily, 0 Otis 00 Refill(s) Levetiracet 2013-03 Yes 250 mg = 1 Memoria am 250 MG 1-05 tab, BID, l Oral Tablet 07:59: 0 Mauricio n 00 Refill(s) Acetaminoph 2013-03 No Notes: Do M emoria en 325 MG / 1-05 not exceed l Hydrocodone 04:41: 4gm/day of Demar Bitartrate 00 acetaminop 10 MG Oral hen. (Same Tablet as: [place] [[place] 325/10) ] Tylenol 2013-03 No Notes: Do Memor ia 1-05 not exceed l 04:40: 4 gm/day. Otis 00 (Same as: Tylenol) Regular 2013-03 No 60 units) [place] Insulin, 1-05 Stable for l Human 100 04:37: 28 days at [facility] UNT/ML 00 room Injectable temperatur Solution e Expires in days from ____Date Dextrose 2013-03 No 25 gm, 50 [place] 50% Syringe 1-05 mL, Route: l 04:37: IVP, Drug Demar 00 Form: INJ, Dosing Weight 75, kg, PRN, PRN Abnormal Lab Result, Start date: 01/20/14 22:37:00, Duration: 30 day, Stop date: 02/19/14 22:36:00 Saline 2013-03 No Notes: Memoria Flush 0.9% 1-05 (Same as: l 04:37: BD Otis 00 Posiflush) Labetalol 2013-03 No 10 mg, 2 [place] 1-05 mL, Route: l 04:37: IVP, Drug Demar 00 form: INJ, Q15Min, Dosing Weight 75, kg, PRN Hypertensi on, Start date: 01/20/14 22:37:00, Duration: 3 doses or times, Stop date: Limited # of times Morphine 2013-03 No Notes: Memoria 1-05 (Same l 04:37: as:MORPhin Otis 00 e Sulfate) Ondansetron 2013-03 No Notes: [place] 1-05 (Same as: l 04:37: Zofran) Demar 00 Bisacodyl 2013-03 No Notes: Memori a 1-05 (Same As: l 04:37: Dulcolax, Demar 00 Bisco-Lax) Sodium 2013-03 No 1,000 mL, Memori a Chloride 1-05 Rate: 125 l 0.154 04:37: ml/hr, Otis MEQ/ML 00 Infuse Injectable over: 8 Solution hr, Route: IV, Dosing Weight 75 kg, Total Volume: 1,000, Start date: 01/20/14 22:37:00, Duration: 30 day, Stop date: 02/19/14 22:36:00 Benadryl 2013-03 No 25 mg, Memoria 1-05 Route: l 01:09: IVP, ONCE, Otis 00 Dosing Weight 75, kg, Priority: STAT, Start date: 01/20/14 19:09:00, Stop date: 01/20/14 19:09:00 Sodium 2013- No 1,000 mL, Memori a Chloride 05 1,000 l 0.154 01:09: ml/hr, Otis MEQ/ML 00 Infuse Injectable Over: 1 Solution hr, Route: IV, ONCE, Priority: STAT, Dosing Weight 75 kg, Start date: 01/20/14 19:09:00, Duration: 1 doses or times, Stop date: 01/20/14 19:09:00 Reglan 2013-03 No 10 mg, Memoria 1-05 Route: l 01:08: IVP, Drug Otis 00 form: INJ, ONCE, Dosing Weight 75, kg, Priority: STAT, Start date: 01/20/14 19:08:00, Stop date: 01/20/14 19:08:00 sennosides, Yes 8.6 mg = 1 Memoria [facility] 8.6 MG 8-18 tab, PO, l Oral Tablet 19:29: Q12H, # 30 Otis 00 tab, 0 Refill(s) pantoprazol Yes = 1 pkt, Me moria e 40 mg 8-18 GT, Q12H, l oral 19:29: # 30 pkt, Otis granule 00 0 Refill(s) oxyCODONE 5 Yes [...] 12/01/13 9:00:00 sennosides, No Notes: [place] [facility] 8.6 MG 8-17 (Same as: l Oral Tablet 02:00: Senokot) magnesium No 2 gm, 50 [place] sulfate 8-16 mL, Route: l 09:00: IVPB, Drug form: INJ, Q2H, Start date: 11/01/13 4:00:00, Duration: 2 doses or times, Stop date: 11/01/13 6:00:00 sennosides, 2013-0 No Notes: [place] [facility] 8.6 MG 8-15 (Same as: l Oral Tablet 15:45: Senokot) NS 1,000 mL No 1,000 mL, M emoria 8-15 Rate: 75 l 13:14: ml/hr, Otis 00 Infuse over: 13.3 hr, Route: IV, Dosing Weight 118.5 kg, Total Volume: 1,000, Start date: 10/31/13 8:14:00, Duration: 30 day, Stop date: 11/30/13 8:13:00 Sodium 2014-0 No 1,000 mL, Memori a Chloride 10-31 1,000 l 0.154 13:13: ml/hr, Otis MEQ/ML 00 Infuse Injectable Over: 1 Solution hr, Route: IV, 1,000, Drug form: INJ, ONCE, Priority: STAT, Dosing Weight 118.5 kg, Start date: 10/31/13 8:13:00, Duration: 1 doses or times, Stop date: 10/31/13 8:13:00 magnesium 2014-0 No 2 gm, 50 [place] sulfate 8-15 mL, Route: l 08:00: IVPB, Drug Demar 00 form: INJ, ONCE, Start date: 10/31/13 3:00:00, Stop date: 10/31/13 3:00:00 parenteral 2013-0 No Notes: Per [address] l solution 23:00: policy, Mauricio n w/electroly 00 bag must renetta 800 mL be changed every 24hr. magnesium 2014-0 No 2 gm, 50 [place] sulfate 8-14 mL, Route: l 09:00: IVPB, Drug Demar 00 form: INJ, ONCE, Start date: 10/30/13 4:00:00, Stop date: 10/30/13 4:00:00 parenteral 2013-0 No Notes: Per [address] l solution 23:00: policy, Mauricio n w/electroly 00 bag must renetta 800 mL be changed every 24hr. calcium 2014-0 No 3,000 mg, Memor ia gluconate + 13 30 mL, l Sodium 09:00: Route: IV, Chiquita nn Chloride 00 ONCE, 0.9% IV 100 Start mL date: 10/29/13 4:00:00, Stop date: 10/29/13 4:00:00 parenteral 2013-0 No Notes: Per [address] [facility] l solution 23:00: policy, Mauricio n w/electroly 00 bag must renetta 800 mL be changed every 24hr. magnesium 2013-0 No 2 gm, 50 [place] sulfate 8-12 mL, Route: l 08:30: IVPB, Drug Demar 00 form: INJ, Q2H, Start date: 10/28/13 3:30:00, Duration: 2 doses or times, Stop date: 10/28/13 5:30:00 parenteral 0 No Notes: Per [address] [facility] l solution 23:00: policy, Mauricio n w/electroly 00 bag must renetta 800 mL be changed every 24hr. sodium No Notes: Memoria phosphate + 8-11 (Same as: l Sodium 11:00: Na Otis Chloride 00 Phosphate, 0.9% IV 250 Na PO4) mL magnesium 2013- No 2 gm, 50 [place] sulfate 8-11 mL, Route: l 11:00: IVPB, Drug Demar 00 form: INJ, Q2H, Start date: 10/27/13 6:00:00, Duration: 2 doses or times, Stop date: 10/27/13 8:00:00 parenteral No Notes: Per [address] l solution 23:00: policy, Mauricio n w/electroly 00 bag must renetta 1,000 be changed mL every 24hr. magnesium 2013-0 No 2 gm, 50 [place] sulfate 8-10 mL, Route: l 09:00: IVPB, Drug Demar 00 form: INJ, Q2H, Start date: 10/26/13 4:00:00, Duration: 2 doses or times, Stop date: 10/26/13 6:00:00 sodium 0 No Notes: Memoria phosphate + 8-10 (Same as: l Sodium 08:00: Na Demar Chloride 00 Phosphate, 0.9% IV 250 Na PO4) mL parenteral No Notes: Per [address] [facility] l solution 23:00: policy, Mauricio n w/electroly 00 bag must renetta 1,000 be changed mL every 24hr. Lexapro No Notes: Memoria 8-09 (Same as: l 17:03: Lexapro) Demar 00 potassium 0 No Notes: Memori a phosphate + 8-09 (Same as: l Sodium 10:00: K Demar Chloride 00 Phosphate. 0.9% IV 250 ) 1 mMol mL phoshate has 1.47 mEq potassium Infuse over 2 hours magnesium No 2 gm, 50 [place] sulfate 8-09 mL, Route: l 09:30: IVPB, Drug Demar 00 form: INJ, Q2H, Start date: 10/25/13 4:30:00, Duration: 2 doses or times, Stop date: 10/25/13 6:30:00 Vancomycin No Notes: Memor ia 10-25 (Same As: l 08:00: Vancocin) Otis 00 Vancomycin FOR IV SET ONLY parenteral No Notes: Per [facility] nutrition 10-24 [facility] l solution 23:00: policy, Mauricio n w/electroly 00 bag must renetta 750 mL be changed every 24hr. heparin No Notes: Memoria sodium, 10-24 porcine l porcine 21:00: heparin Demar 2500 UNT/ML 00 Injectable Solution Saline No Notes: Memoria Flush 0.9% 8-08 (Same as: l 21:00: BD Demar 00 Posiflush) Saline No Notes: Memoria Flush 0.9% 8-08 (Same as: l 13:53: BD Demar 00 Posiflush) magnesium No 2 gm, 50 [place] sulfate 8-08 mL, Route: l 06:00: IVPB, Drug Otis 00 form: INJ, Q2H, Start date: 10/24/13 1:00:00, Duration: 2 doses or times, Stop date: 10/24/13 3:00:00 potassium No Notes: Memori a phosphate + 08 (Same as: l Sodium 05:00: K Demar Chloride 00 Phosphate. 0.9% IV 250 ) 1 mMol mL phoshate has 1.47 mEq potassium Infuse over 4 hours magnesium No 4 gm, 100 Mem oria sulfate 8-08 mL, Route: l 05:00: IVPB, Drug Otis 00 form: INJ, ONCE, Start date: 10/24/13 0:00:00, Stop date: 10/24/13 0:00:00 Protonix No Notes: For Mem oria 8-08 IV push l 02:00: reconstitu Otis te with 10 ml 0.9% sodium chloride and push over 2 minutes. (Same as: Protonix) Potassium No Special Memor ia Chloride 10-23 Instructio l 20:57: ns: FOR Otis ICU USE ONLY Sodium No Special Memoria Phosphate, 10-23 Instructio l Monobasic 20:57: ns: FOR [place] ICU USE ONLY Calcium No 1,000 mg, Memor ia Carbonate 10-23 Route: PO, l 500 MG 20:57: PRN, Demar Chewable 00 Dosing Tablet Weight 118.5, kg, [...] Gluconate 10-23 Instructio l 20:57: ns: FOR Demar ICU USE ONLY Magnesium No Special Memor ia Sulfate 10-23 Instructio l 20:57: ns: FOR Demar 00 ICU USE ONLY Magnesium No 800 mg, Memor ia Oxide 10-23 Route: PO, l 20:57: PRN, Demar Dosing Weight 118.5, kg, PRN Abnormal Lab Result, FOR ICU USE ONLY, Start date: 10/23/13 15:57:00, Duration: 30 day, Stop date: 11/22/13 15:56:00 potassium No Notes: Memori a chloride 10-23 (Same as: l 04:00: KCL) Infuse no faster than 10 mEq/hr if given peripheral ly. magnesium No 2 gm, 50 [place] sulfate 10-23 mL, Route: l 04:00: IVPB, Drug form: INJ, Q2H, Start date: 10/22/13 23:00:00, Duration: 2 doses or times, Stop date: 10/23/13 1:00:00 Fentanyl No Notes: Memoria 8-06 (Same as: l 22:15: Sublimaze) Otis Preservati ve free. Fentanyl No Notes: Memoria 8-06 (Same as: l 22:14: Sublimaze) Otis Preservati ve free. Fentanyl No 25 Memoria 8- microgram, l 21:17: Route: IV, Otis 00 ONCE, Dosing Weight 118.5, kg, Start date: 10/22/13 16:17:00, Stop date: 10/22/13 16:17:00 Versed No 1 mg, Memoria 8-06 Route: IV, l 21:17: ONCE, Dosing Weight 118.5, kg, Start date: 10/22/13 16:17:00, Stop date: 10/22/13 16:17:00 potassium No Notes: Memori a chloride 10-22 (Same as: l 19:00: KCL) Infuse no faster than 10 mEq/hr if given peripheral ly. magnesium No 2 gm, 50 [place] sulfate 8-06 mL, Route: l 18:00: IVPB, Drug form: INJ, ONCE, Start date: 10/22/13 13:00:00, Stop date: 10/22/13 13:00:00 Vancomycin No Notes: Memor ia 8-06 (Same As: l 15:00: Vancocin) Vancomycin FOR IV SET ONLY micafungin No Notes: Memor ia 8-06 Same as l 15:00: Mycamine Protect from light meropenem No Notes: Memori a 8-06 (Same as: l 15:00: Merrem) . Otis 00 Sodium 2013-0 No 1,000 mL, Memori a Chloride 8-06 1,000 l 0.154 14:16: ml/hr, Demar MEQ/ML 00 Infuse Injectable Over: 1 Solution hr, Route: IV, 1,000, Drug form: INJ, ONCE, Priority: STAT, Dosing Weight 118.5 kg, Start date: 10/22/13 9:16:00, Duration: 1 doses or times, Stop date: 10/22/13 9:16:00 Acetaminoph No Notes: [place] en 10-22 Infuse l 14:00: over 15 Otis 00 minutes Do not exceed 4gm/day of [...] for l Pork 09:24: 28 days at Otis 00 room temperatur e Expires in days from ____Date Sodium No Notes: Memoria Bicarbonate 10-22 (sodium l 1 MEQ/ML 09:18: bicarb Demar Injectable 00 8.4% (1 Solution mEq/ml) 50 ml syringe) Magnesium No 2 gm, 50 [place] Sulfate 8-06 mL, Route: l 09:18: IVPB, Drug Otis 00 form: INJ, ONCE, Dosing Weight 118.5, kg, Start date: 10/22/13 4:18:00, Duration: 2 hr, Stop date: 10/22/13 4:18:00 Fluconazole 0 No Notes: [place] 10-22 (Same as: l 09:04: Diflucan) Do not refrigerat e Calcium No 1,000 mg, Memor ia Chloride 10-22 10 mL, l 08:47: Route: IVPB, ONCE, Dosing Weight 118.5, kg, Start date: 10/22/13 3:47:00, Stop date: 10/22/13 3:47:00 Calcium 2013- No 1,000 mg, Memor ia Chloride 10-22 10 mL, l 08:11: Route: IVPB, ONCE, Dosing Weight 118.5, kg, Start date: 10/22/13 3:11:00, Stop date: 10/22/13 3:11:00 Protonix No Notes: For Mem oria 10-22 IV push l 07:41: reconstitu te with 10 ml 0.9% sodium chloride and push over 2 minutes. (Same as: Protonix) Sodium No 100 mL, Memoria Chloride 10-22 Rate: 10 l 0.154 07:40: ml/hr, Otis MEQ/ML 00 Infuse Injectable over: 10 Solution hr, Route: IVPB, Dosing Weight 118.5 kg, Total Volume: 100, Infuse at 8 mg / hr for 72 hours for GI bleeding, Start date: 10/22/13 2:40:00, Duration: 72 hr, Stop date: 10/25/13 2:39:00 Golytely No Notes: Memoria 10-22 (Same as: l 07:17: Nulytely) vasopressin No 250 mL, Mem oria 80 unit + 10-22 Rate: l Sodium 05:47: Infuse at Mauricio n Chloride 00 0.04 0.9% unit/minut (titrate) e, Dosing 250 mL Weight 118.5, kg, Route: IV, Total Volume: 254, Priority: STAT, Start Date: 10/22/13 0:47:00, Duration: 30 day, Stop date: 11/21/13 0:46:00, Replace Every: 24 hr Reglan No Notes: Memoria 10-22 (Same as: l 05:00: Reglan) phenylephri No Notes: [place] ne 50 [...] SET ONLY Vancomycin No Notes: Memor ia 8- (Same As: l 02:00: Vancocin) Demar 00 Vancomycin FOR IV SET ONLY Zosyn No Notes: Memoria 8- (Same as: l 02:00: Zosyn) Demar 00 Dosing based on Piperacill in component Vancomycin No Notes: Memor ia 8- (Same As: l 01:43: Vancocin) Demar Vancomycin FOR IV SET ONLY NS 1000 mL No 1,000 mL, Me moria 10-22 Rate: 50 l 01:08: ml/hr, Otis 00 Infuse over: 20 hr, Route: IV, Dosing Weight 118.5 kg, Total Volume: 1,000, Start date: 10/21/13 20:08:00, Duration: 30 day, Stop date: 11/20/13 20:07:00 Sodium No 1,000 mL, Memori a Chloride 10-22 1,000 l 0.154 00:32: ml/hr, Demar MEQ/ML 00 Infuse Injectable Over: 1 Solution hr, Route: IV, 1,000, Drug form: INJ, ONCE, Priority: STAT, Dosing Weight 118.5 kg, Start date: 10/21/13 19:32:00, Duration: 1 doses or times, Stop date: 10/21/13 19:32:00 Amantadine No Notes: Memor ia 10-20 (Same as: l 12:22: Symmetrel) Demar 00 magnesium No 2 gm, 50 [place] sulfate 10-20 mL, Route: l 11:00: IVPB, Drug Otis 00 form: INJ, Q2H, Start date: 10/20/13 6:00:00, Duration: 2 doses or times, Stop date: 10/20/13 8:00:00 calcium No 3,000 mg, Memor ia gluconate + 10-20 30 mL, l Sodium 10:00: Route: Otis Chloride 00 IVPB, 0.9% IV 100 ONCE, mL Start date: 10/20/13 5:00:00, Stop date: 10/20/13 5:00:00 parenteral No Notes: Per [address] [facility] l solution 23:00: policy, Mauricio n w/electroly 00 bag must renetta 665 mL be changed every 24hr. potassium No Notes: Memori a chloride 10-19 (Same as: l 08:00: Potassium Otis Chloride) magnesium No 2 gm, 50 [place] sulfate 10-19 mL, Route: l 08:00: IVPB, Drug Demar 00 form: INJ, ONCE, Start date: 10/19/13 3:00:00, Stop date: 10/19/13 3:00:00 parenteral No Notes: Per [address] [facility] l solution 23:00: policy, Mauricio n w/electroly 00 bag must renetta 665 mL be changed every 24hr. Acetaminoph No Notes: Max Memoria en 10-18 acetaminop l 15:46: hen = Otis 00 4000mg/day (4 gm/day). (Same as: Tylenol) Protonix No Notes: For Mem oria 10-18 IV push l 14:00: reconstitu Otis 00 te with 10 ml 0.9% sodium chloride and push over 2 minutes. (Same as: Protonix) potassium No Notes: Memori a chloride 10-18 (Same as: l 08:00: Potassium Otis 00 Chloride) magnesium No 2 gm, 50 [place] sulfate 10-18 mL, Route: l 08:00: IVPB, Drug Demar 00 form: INJ, ONCE, Start date: 10/18/13 3:00:00, Stop date: 10/18/13 3:00:00 Mannitol No Notes: Memoria 10-18 (Same as: l 02:57: Osmitrol) Demar 00 Infuse through 5 micron or smaller filter Acetaminoph No Notes: Do emoria en 325 MG / 10-18 not exceed l Hydrocodone 02:52: 4gm/day of Demar Bitartrate 00 acetaminop 10 MG Oral hen. (Same Tablet as: [place] [[place] 325/10) 10/325] Acetaminoph No Notes: [place] en 325 MG / 10-18 (Same as: l Hydrocodone 02:51: [place] Chiquita nn Bitartrate 00 325/5) Do 5 MG Oral not exceed Tablet 4gm/day of [[place] acetaminop 5/325] hen. Acetaminoph No Notes: [place] en 325 MG / 10-18 (Same as: l Hydrocodone 02:50: [place] Chiquita nn Bitartrate 00 325/5) Do 5 MG Oral not exceed Tablet 4gm/day of [[place] acetaminop 5/325] hen. Fentanyl No Notes: Memoria 10-18 (Same as: l 02:48: Sublimaze) Otis 00 Preservati ve free. parenteral No Notes: Per [facility] nutrition 10-17 [facility] l solution 23:00: Mauricio de la cruz w/electroly 00 bag must renetta 600 mL be changed every 24hr. NS 1,000 mL No 1,000 mL, [facility] 10-17 Rate: 100 l 14:02: ml/hr, Demar 00 Infuse over: 10 hr, Route: IV, Dosing Weight 118.5 kg, Total Volume: 1,000, Start date: 10/17/13 9:02:00, Duration: 30 day, Stop date: 11/16/13 9:01:00 Acetaminoph No Notes: Do [facility] 10-17 not exceed l 13:53: 4 gm/day. Demar 00 (Same as: Tylenol) Sodium No 60 mL, Memoria Chloride 4 10-16 Route: IV, l MEQ/ML 23:18: ONCE, Otis Injectable 00 Dosing Solution Weight 118.5 kg, Start date: 10/16/13 18:18:00, Duration: 1 doses or times, Stop date: 10/16/13 18:18:00 Ancef No 2 gm, Memoria 10-16 Route: l 20:51: IVPB, Otis 00 ONCE, Dosing Weight 118.5, kg, Start date: 10/16/13 15:51:00, Duration: 1 doses or times, Stop date: 10/16/13 15:51:00 Magnesium No 2 gm, Memoria Sulfate 10-16 Route: l 20:19: IVPB, Drug form: INJ, ONCE, Dosing Weight 118.5, kg, Start date: 10/16/13 15:19:00, Duration: 2 hr, Stop date: 10/16/13 15:19:00 Water 1000 No Special [place] MG/ML - Instructio l Injectable 15:41: ns: For Herm shelton Solution 00 IMU and ICU use only. See Order Comments!! Water 1000 No Special [place] MG/ML 7-31 Instructio l Injectable 14:32: ns: For Herm shelton Solution 00 IMU and ICU use only. See Order Comments!! Fentanyl No 1,000 Memoria 7- microgram, l 14:29: 20 mL, Demar 00 Rate: Titrate as directed, Dosing Weight 118.5, kg, Route: IV, Total Volume: 20 mL, Start Date: 10/16/13 9:29:00, Duration: 30 day, Stop date: 11/15/13 9:28:00, Replace Every: 24 hr Acetaminoph No Notes: Do M emoria en 10-16 not exceed l 14:28: 4 gm/day. Otis (Same as: Tylenol) Demerol HCl No Notes: [place] -31 (Same as: l 10:46: Demerol) "Use Precaution in Elderly, Seizure disorders, and Renal impairment " Sodium No 500 mL, Memoria Chloride 7-31 500 ml/hr, l 0.154 03:11: Infuse Otis MEQ/ML 00 Over: 1 Injectable hr, Route: Solution IV, 500, Drug form: INJ, ONCE, Priority: STAT, Dosing Weight 118.5 kg, Start date: 10/15/13 22:11:00, Duration: 1 doses or times, Stop date: 10/15/13 22:11:00 Buspar No Notes: Memoria 7-31 (Same As: l 03:00: BuSpar) Otis Magnesium No 2 gm, 50 [place] Sulfate 7-30 mL, Route: l 15:00: IVPB, Drug Demar form: INJ, Q2H, Dosing Weight 118.5, kg, Total dose = 6 gm, Start date: 10/15/13 10:00:00, Duration: 3 doses or times, Stop date: 10/15/13 14:00:00 Demerol HCl No Notes: [place] 7-30 (Same as: l 11:25: Demerol) Demar 00 "Use Precaution in Elderly, Seizure disorders, and Renal impairment " Miralax No Notes: Memoria 7-30 Dissolve l 02:00: in 8 oz of Demar water or juice. (Same as: Miralax) Magnesium No 2 gm, 50 [place] Sulfate 7-29 mL, Route: l 13:00: IVPB, Drug Otis 00 form: INJ, Q2H, Dosing Weight 118.5, [...] 7-29 500 ml/hr, l 0.154 08:15: Infuse Demar MEQ/ML 00 Over: 1 Injectable hr, Route: Solution IV, ONCE, Priority: STAT, Dosing Weight 118.5 kg, Start date: 10/14/13 3:15:00, Duration: 1 doses or times, Stop date: 10/14/13 3:15:00 Sodium 2013- No 500 mL, Memoria Chloride 3% 10-14 Rate: 150 l IV 500 mL 06:09: [...] 7-29 mL, Route: l 03:19: IVPB, Drug Demar 00 form: INJ, PRN, Dosing Weight 118.5, kg, PRN Abnormal Lab Result, Start date: 10/13/13 22:19:00, Duration: 30 day, Stop date: 11/12/13 22:18:00 Sodium 2013- No 18 mmol, 6 Memor ia Phosphate, 7-29 mL, Route: l Monobasic 03:19: IVPB, PRN, He rmann Dosing Weight 118.5, kg, PRN Abnormal Lab Result, Start date: 10/13/13 22:19:00, Duration: 30 day, Stop date: 11/12/13 22:18:00 Calcium 2013-0 No 1 gm, 10 Memori a Chloride 7-29 mL, Route: l 03:19: IVPB, PRN, Otis Dosing Weight 118.5, kg, PRN Abnormal Lab Result, Start date: 10/13/13 22:19:00, Duration: 30 day, Stop date: 11/12/13 22:18:00 Potassium 2013-0 No Notes: Memori a Chloride 7-29 (Same as: l 03:19: KCL) Demar 00 Infuse no faster than 10 mEq/hr if given peripheral ly. Sodium 2013-0 No 1,000 mL, Memori a Chloride 3% [...] Instructio l 1000 ml 01:48: ns: For Otis 457.25 mL + 00 IMU and sodium ICU use chloride only. See 171 mEq Order Comments!! sterile No Notes: Memoria water 10-14 (Same as: l 871.75 mL + 00:31: Hypertonic Otis sodium 00 Saline 3%) chloride 513 mEq Water 1000 No Special [place] MG/ML 10-13 Instructio l Injectable 23:22: ns: For Herm shelton Solution 00 IMU and ICU use only. See Order Comments!! Magnesium No 2 gm, 50 [place] Sulfate 10-13 mL, Route: l 23:00: IVPB, Drug Otis 00 form: INJ, Q2H, Dosing Weight 118.5, [...] Memoria - tab, l 14:00: Route: PO, Otis 00 Drug form: TAB, Q12H, Dosing Weight [...] only. See Order Comments!! Sodium 2014-0 No 30 mL, Memoria Chloride 4 7- Route: IV, l MEQ/ML 06:06: ONCE, Demar Injectable 00 Dosing Solution Weight 118.5 kg, Start date: 10/13/13 1:06:00, Duration: 1 doses or times, Stop date: 10/13/13 1:06:00 Sodium 2014-0 No 30 mL, Memoria Chloride 4 10-13 Route: IV, l MEQ/ML 05:40: ONCE, Demar Injectable 00 Dosing Solution Weight 118.5 kg, Start date: 10/13/13 0:40:00, Duration: 1 doses or times, Stop date: 10/13/13 0:40:00 Sodium 2014-0 No 60 mL, Memoria Chloride 4 10-13 Route: IV, l MEQ/ML 05:27: ONCE, Demar Injectable 00 Dosing Solution Weight 118.5 kg, Start date: 10/13/13 0:27:00, Duration: 1 doses or times, Stop date: 10/13/13 0:27:00 magnesium 2014-0 No 4 gm, 100 Mem oria sulfate 7- mL, Route: l 03:11: IVPB, Drug form: INJ, ONCE, Start date: 10/12/13 22:11:00, Stop date: 10/12/13 22:11:00 potassium 2013-0 No Notes: Memori a chloride 10-13 (Same as: l 03:00: KCL) Infuse no faster than 10 mEq/hr if given peripheral ly. Potassium 2014-0 No 40 mEq, Memor ia Chloride 10-13 Route: IV, l 02:38: ONCE, Otis Dosing Weight 118.5, kg, Start date: 10/12/13 21:38:00, Stop date: 10/12/13 21:38:00 Magnesium 2014-0 No Route: IV, Me moria Sulfate 7-28 ONCE, l 02:37: Dosing Weight 118.5, kg, Start date: 10/12/13 21:37:00, Stop date: 10/12/13 21:37:00 Calcium 2014-0 No 1,000 mg, Memor ia Gluconate 7-28 10 mL, l 02:35: Route: Otis 00 IVPB, ONCE, Dosing Weight 118.5, kg, Start date: 10/12/13 21:35:00, Stop date: 10/12/13 21:35:00 Sodium 2013- No 500 mL, Memoria Chloride 3% - Rate: 150 l (Hypertonic 23:57: ml/hr, Herm shelton ) IV 500 mL 00 Infuse over: 3.3 hr, Route: IV, Dosing Weight 118.5 kg, Total Volume: 500, Start date: 10/12/13 18:57:00, Duration: 1 doses or times, Stop date: 10/13/13 15:48:00 sodium 2013- No 171 mEq, Memoria chloride + -27 42.75 mL, l sterile 14:00: 500 ml/hr, Herm shelton water 00 Route: IV, 457.25 mL Drug Form: INJ, ONCE, Start date: 10/12/13 9:00:00, Stop date: 10/12/13 9:00:00 Water 1000 No Special [place] MG/ML 10-12 Instructio l Injectable 13:24: ns: For [facility] [place] Solution 00 IMU and ICU use only. See Order Comments!! Water 1000 No Special [place] MG/ML - Instructio l Injectable 11:53: ns: For [facility] [place] Solution 00 IMU and ICU use only. See Order Comments!! Sodium 2013- No Notes: [facility] Chloride 3% 10-12 "Administe [...] Hydromorpho No 1 mg, Memor ia ne - Route: l 10:56: IVP, ONCE, Otis 00 Dosing Weight 118.5, kg, Priority: STAT, Start date: 10/12/13 5:56:00, Stop date: 10/12/13 5:56:00 Sodium 2013- No 120 mEq, [facility] Chloride 4 -27 30 mL, 60 l MEQ/ML 09:00: ml/hr, Demar Injectable 00 Infuse Solution Over: 30 minutes, Route: IV, 30, Drug form: INJ, ONCE, Dosing Weight 118.5 kg, Start date: 10/12/13 4:00:00, Duration: 1 doses or times, Stop date: 10/12/13 4:00:00 Sodium 2014-0 No 30 mL, 60 Memori a Chloride 4 7-26 ml/hr, l MEQ/ML 16:48: Infuse Otis Injectable 00 Over: 30 Solution minutes, Route: IV, ONCE, Dosing Weight 118.5 kg, Start date: 10/11/13 11:48:00, Duration: 1 doses or times, Stop date: 10/11/13 11:48:00 Vecuronium 2013-0 No Notes: Memor ia 7-26 (Same As: l 16:48: Norcuron) Fentanyl 2013- No 1,000 Memoria 7-26 microgram, l 16:47: 20 mL, Otis 00 Rate: Titrate as directed, Dosing Weight [...] chloride 7-26 (Same as: l 11:30: Potassium Chloride) magnesium 2013- No 2 gm, 50 [place] sulfate 7-26 mL, Route: l 11:00: IVPB, Drug Demar 00 form: INJ, ONCE, Start date: 10/11/13 6:00:00, Stop date: 10/11/13 6:00:00 Fentanyl 2013-0 No 1,000 Memoria 7-26 microgram, l 03:11: 20 mL, Demar 00 Rate: Titrate as directed, Dosing Weight 118.5, kg, Route: IV, Total Volume: 20 mL, Start Date: 10/10/13 22:11:00, Duration: 30 day, Stop date: 11/09/13 22:10:00, Replace Every: 24 hr calcium 2014-0 No 3 gm, 30 Memori a gluconate + 7-26 mL, Route: l Sodium 01:00: IV, ONCE, Mauricio n Chloride 00 Start 0.9% IV 50 date: mL 10/10/13 20:00:00, Stop date: 10/10/13 20:00:00 potassium 2013-0 No Notes: Memori a phosphate + 7-26 (Same as: l Sodium 00:30: K Otis Chloride 00 Phosphate. 0.9% IV 250 ) 1 mMol mL phoshate has 1.47 mEq potassium Infuse over 4 hours Fentanyl 2013-0 No Notes: Memoria 7-26 (Same as: l 00:18: Sublimaze) Otis 00 Preservati ve free. magnesium 2014-0 No 2 gm, 50 [place] sulfate 7-25 mL, Route: l 23:37: IVPB, Drug Demar 00 form: INJ, ONCE, Start date: 10/10/13 18:37:00, Stop date: 10/10/13 18:37:00 Calcium 2014-0 No 1,000 mg, Memor ia Gluconate 7-25 Route: l 23:00: IVPB, Drug Demar [...] gm, Memoria 7-25 Route: l 21:01: IVPB, Otis 00 ONCE, Dosing Weight 118.5, kg, Start [...] No 2,000 mg, Memor ia gluconate + 7-25 20 mL, l Sodium 11:30: Route: IV, Chiquita nn Chloride 00 ONCE, 0.9% IV 100 Start mL date: 10/10/13 6:30:00, Stop date: 10/10/13 6:30:00 potassium 2013-0 No Notes: Memori a chloride 7-25 (Same as: l 11:00: Potassium Demar 00 Chloride) Omnipaque 2014-0 No 100 mL, Memor ia 300 7-24 Route: l 20:10: INTRAARTER Otis 00 IAL, Dosing Weight 118.5, kg, ONCE, Start date: 10/09/13 15:10:00, Stop date: 10/09/13 15:10:00 Verapamil 2013-0 No 10 mg, Memori a 7-24 Route: l 19:32: INTRAARTER Otis 00 IAL, ONCE, Dosing Weight 118.5, kg, Start date: 10/09/13 14:32:00, Stop date: 10/09/13 14:32:00 Nicardipine 2013-0 No 5 mg, Memor ia 7-24 Route: l 19:32: INTRAARTER Demar 00 IAL, ONCE, Dosing Weight 118.5, kg, Start date: 10/09/13 14:32:00, Stop date: 10/09/13 14:32:00 Nitroglycer 2013-0 No 200 Memori a in 7-24 microgram, l 19:32: Route: Demar 00 INTRAARTER IAL, ONCE, Dosing Weight 118.5, kg, Start date: 10/09/13 14:32:00, Stop date: 10/09/13 14:32:00 Verapamil 2013-0 No 10 mg, Memori a 7-24 Route: l 19:08: INTRAARTER Demar 00 IAL, ONCE, Dosing Weight 118.5, kg, Start date: 10/09/13 14:08:00, Stop date: 10/09/13 14:08:00 Nicardipine 2013-0 No 5 mg, Memor ia 7-24 Route: l 19:08: INTRAARTER Otis 00 IAL, ONCE, Dosing Weight 118.5, kg, Start date: 10/09/13 14:08:00, Stop date: 10/09/13 14:08:00 Nitroglycer 2013-0 No 200 Memori a in 7-24 microgram, l 19:08: Route: Demar 00 INTRAARTER IAL, ONCE, Dosing Weight 118.5, kg, Start date: 10/09/13 14:08:00, Stop date: 10/09/13 14:08:00 calcium 2013-0 No 3,000 mg, Memor ia gluconate + 7-24 30 mL, l Sodium 11:30: Route: Otis Chloride 00 IVPB, 0.9% IV 100 ONCE, mL Start date: 10/09/13 6:30:00, Stop date: 10/09/13 6:30:00 sodium 2013-0 No Notes: Memoria phosphate + 7-24 (Same as: l Sodium 11:30: Na Demar Chloride 00 Phosphate, 0.9% IV 250 Na PO4) mL Fentanyl 2013-0 No 100 Memoria 7-24 microgram, l 09:42: Route: Otis 00 IVP, Drug form: INJ, ONCE, Dosing Weight 118.5, kg, Start date: 10/09/13 4:42:00, Stop date: 10/09/13 4:42:00 Ancef + 2013-0 No Notes: Memoria Sodium 7-24 (Same As: l Chloride 05:00: Ancef, Demar 0.9% IV 100 00 Kefzol) mL Verapamil 2013-0 No 10 mg, Memori a 7-24 Route: l 00:56: INTRAARTER Otis 00 IAL, ONCE, Dosing Weight 118.5, kg, Start date: 10/08/13 19:56:00, Stop date: 10/08/13 19:56:00 Nicardipine 2013-0 No 5 mg, Memor ia 7-24 Route: l 00:56: INTRAARTER Otis 00 IAL, ONCE, Dosing Weight 118.5, kg, Start date: 10/08/13 19:56:00, Stop date: 10/08/13 19:56:00 Nitroglycer 2013- No 200 Memori a in 7-24 microgram, l 00:56: Route: Otis 00 INTRAARTER IAL, ONCE, Dosing Weight 118.5, kg, Start date: 10/08/13 19:56:00, Stop date: 10/08/13 19:56:00 Omnipaque 2013-0 No 150 ml, Memor ia 300 7-24 Route: l 00:56: INTRAARTER Demar 00 IAL, Dosing Weight 118.5, kg, ONCE, Start date: 10/08/13 19:56:00, Stop date: 10/08/13 19:56:00 Sodium 2013- No 30 mL, 60 Memori a Chloride 4 7-23 ml/hr, l MEQ/ML 23:37: Infuse Demar Injectable 00 Over: 30 Solution minutes, Route: IV, ONCE, Dosing Weight 118.5 kg, Start date: 10/08/13 18:37:00, Duration: 1 doses or times, Stop date: 10/08/13 18:37:00 Sodium 2013- No Notes: Memoria Chloride 3% 10-08 "Administe l (Hypertonic 23:07: r by Mauricio rizo ) IV 500 mL 00 central venous catheter or a peripheral ly inserted central catheter (PICC) line. 3% Sodium Chloride may be infused via peripheral administra tion into large vein (antecubit al) only in the case of emergency for short term use until a central line can be inserted" (Same as: Hypertonic Saline 3%) Sodium 2013-0 No 30 mL, 60 Memori a Chloride 4 7-23 ml/hr, l MEQ/ML 21:29: Infuse Demar Injectable 00 Over: 30 Solution minutes, Route: IV, ONCE, Dosing Weight 118.5 kg, Start date: 10/08/13 16:29:00, Duration: 1 doses or times, Stop date: 10/08/13 16:29:00 Water 1000 No Special [place] MG/ML 10-08 Instructio l Injectable 17:14: ns: For Herm shelton Solution 00 IMU and ICU use only. See Order Comments!! Water 1000 No Special [place] MG/ML 10-08 Instructio l Injectable 17:13: ns: For Herm shelton Solution 00 IMU and ICU use only. See Order Comments!! Calcium No 1,000 mL, Memor ia Chloride 10-08 1,000 l 0.0014 08:14: ml/hr, Demar MEQ/ML / 00 Infuse Potassium Over: 1 Chloride hr, Route: 0.004 IV, 1,000, MEQ/ML / Drug form: Sodium INJ, ONCE, Chloride Priority: 0.103 STAT, MEQ/ML / Dosing Sodium Weight Lactate 118.5 kg, 0.028 Start MEQ/ML date: Injectable 10/08/13 Solution 3:14:00, Duration: 1 doses or times, Stop date: 10/08/13 3:14:00 potassium No Notes: Memori a acetate 2 10-08 Always l mEq/mL 07:00: ordered as Chiquita [...] 10-08 30 mL, l Sodium 07:00: Route: [place] Chloride 00 IVPB, 0.9% IV 100 ONCE, mL Start date: 10/08/13 2:00:00, Stop date: 10/08/13 2:00:00 Potassium No 20 mEq, Memor ia Acetate 10-08 Route: l 05:33: IVPB, Demar 00 ONCE, Dosing Weight 118.5, kg, Start date: 10/08/13 0:33:00, Stop date: 10/08/13 0:33:00 LR IV 1,000 No 1,000 mL, M emoria mL 10-07 Rate: 150 l 19:53: ml/hr, Otis 00 Infuse over: 6.7 hr, Route: IV, Dosing Weight 118.5 kg, Total Volume: 1,000, Start date: 10/07/13 14:53:00, Duration: 30 day, Stop date: 11/06/13 14:52:00 Midazolam 1 No Notes: [place] MG/ML 10-07 (Same as: l Injectable 17:09: Versed) Herm shelton Solution meropenem No Notes: Memori a -22 Same as l 14:00: Merrem.. Otis Protonix No Notes: For Mem oria 10-07 IV push l 14:00: reconstitu Demar te with 10 ml 0.9% sodium chloride and push over 2 minutes. (Same as: Protonix) Zyvox No 600 mg, Memoria 7-22 300 mL, l 14:00: Route: Demar 00 IVPB, Drug form: SOLN, [id number], Dosing Weight 118.5, kg, Start date: 10/07/13 9:00:00, Stop date: 11/06/13 4:00:00 calcium No 3,000 mg, Memor ia gluconate + 10-07 30 mL, l Sodium 13:30: Route: [place] Chloride IVPB, 0.9% IV 50 ONCE, mL Start date: 10/07/13 8:30:00, Stop date: 10/07/13 8:30:00 potassium No Notes: Memori a chloride 10-07 (Same as: l 13:00: KCL) Infuse no faster than 10 mEq/hr if given peripheral ly. iodixanol No Notes: Memori a 7-22 (Same as: l 12:30: Visipaque) . iodixanol No Special Memor ia 7-22 Instructio l 11:19: ns: Dose = 2.2ml/kg, Max dose = 100ml -- "To be infused by Radiology Staff ONLY" Rocuronium No Notes: Memor ia 7-22 (Same as: l 10:49: Zemeron) Fentanyl No 1,000 Memoria - microgram, l 10:35: 20 mL, Otis 00 Rate: Titrate as directed, Dosing Weight [...] of acetaminop hen Iohexol No Notes: Memoria 10-07 (Same l 08:18: as:Omnipaq ue 350). Sodium No 1,000 mL, Memori a Chloride 10-07 1,000 l 0.154 04:25: ml/hr, Demar MEQ/ML 00 Infuse Injectable Over: 1 Solution hr, Route: IV, 1,000, Drug form: INJ, ONCE, Priority: STAT, Dosing Weight 118.5 kg, Start date: 10/06/13 23:25:00, Duration: 1 doses or times, Stop date: 10/06/13 23:25:00 Rocuronium No Notes: Memor ia 10-07 (Same as: l 04:24: Zemeron) Sodium No 1,000 mL, Memori a Chloride 10-07 1,000 l 0.154 04:24: ml/hr, Otis MEQ/ML 00 Infuse Injectable Over: 1 Solution hr, Route: IV, 1,000, Drug form: INJ, ONCE, Priority: STAT, Dosing Weight 118.5 kg, Start date: 10/06/13 23:24:00, Duration: 1 doses or times, Stop date: 10/06/13 23:24:00 Sodium No 1,000 mL, Memori a Chloride 722 1,000 l 0.154 04:23: ml/hr, Otis MEQ/ML 00 Infuse Injectable Over: 1 Solution hr, Route: IV, 1,000, Drug form: INJ, ONCE, Priority: STAT, Dosing Weight 118.5 kg, Start date: 10/06/13 23:23:00, Duration: 1 doses or times, Stop date: 10/06/13 23:23:00 Rocuronium No Notes: Memor ia 10-07 (Same as: l 04:10: Zemeron) Otis 00 norepinephr No 242 mL, Mem oria ine 8 mg + 10-07 Rate: Use l Sodium 03:11: as [place] Chloride 00 direced, 0.9% Dosing (titrate) Weight [...] being intubated (unless the nurse is a COMMERCIAL F[employer]OR COVERING INSTALLER). Same as: Diprivan PlasmaLyte No 1,000 mL, Me moria A PH-7.4 10-07 Rate: 150 l 1,000 mL 03:10: ml/hr, Demar 00 Infuse over: 6.7 hr, Route: IV, Dosing Weight 118.5 kg, Total Volume: 1,000, Start date: 10/06/13 22:10:00, Duration: 30 day, Stop date: 11/05/13 22:09:00 Ketorolac No 4 days. [place] Tromethamin 10-07 l e 15 MG/ML 00:36: Demar Injectable 00 Solution Lactulose No Notes: Memori a 10-06 (Same l 22:22: as:Chronul Otis 00 ac) molasses No Notes: Memoria 10-06 (Same l 16:27: as:Molasse Otis 00 s) Acetaminoph No Notes: Do M emoria en 325 MG / 10-06 not exceed l Hydrocodone 16:06: 4gm/day of Demar Bitartrate 00 acetaminop 10 MG Oral hen. (Same Tablet as: [place] 325/10) Acetaminoph No Notes: [place] en 325 MG / 10-06 (Same as: l Hydrocodone 16:06: [place] Chiquita nn Bitartrate 00 325/5) Do 5 MG Oral not exceed Tablet 4gm/day of acetaminop hen. Oxycodone No Notes: Memori a Hydrochlori 10-06 (Same as: l de 5 MG 16:06: Roxicodone Herm shelton Oral Tablet 00 ) magnesium No Notes: Memori a citrate 10-06 (Same as: l 11:31: Citrate of Demar 00 Magnesia) Mannitol No Notes: Memoria - (Same as: l 11:31: Osmitrol) Demar "Infuse through 0.2 micron filter" Morphine No Notes: Memoria - (Same l 11:30: as:MORPhin Otis 00 e Sulfate) potassium No Notes: Memori a chloride 10-06 (Same as: l 09:00: KCL) Demar Infuse no faster than 10 mEq/hr if given peripheral ly. NS 1,000 mL No 1,000 mL, M emoria 10-06 Rate: 75 l 08:44: ml/hr, Otis Infuse over: 13.3 hr, Route: IV, Dosing Weight 115.8 kg, Total Volume: 1,000, Start date: 10/06/13 3:44:00, Duration: 30 day, Stop date: 11/05/13 3:43:00 calcium No 3,000 mg, Memor ia gluconate + 10-06 30 mL, l Sodium 08:00: Route: [place] Chloride 00 IVPB, 0.9% IV 100 ONCE, mL Start date: 10/06/13 3:00:00, Stop date: 10/06/13 3:00:00 sodium No Notes: Memoria phosphate + 10-06 (Same as: l Sodium 08:00: Na [place] Chloride 00 Phosphate, 0.9% IV 250 Na PO4) mL Simethicone No Notes: [place] - (Same as: l 04:06: Mylicon, Demar 00 Phazyme, Genasyme) Dexmedetomi No Notes: [place] dine 0.004 10-05 (Same as: l MG/ML 19:41: Precedex) Demar Injectable 00 Solution [Precedex] potassium No Notes: Memori a chloride 7-20 (Same as: l 08:30: Potassium Otis 00 Chloride) calcium No 3,000 mg, Memor ia gluconate + 7-20 30 mL, l Sodium 08:30: Route: Demar Chloride 00 IVPB, 0.9% IV 100 ONCE, mL Start date: 10/05/13 3:30:00, Stop date: 10/05/13 3:30:00 potassium No Notes: Memori a chloride 7-19 (Same as: l 12:00: Potassium Demar Chloride) magnesium No 2 gm, 50 [place] sulfate 7-19 mL, Route: l 11:25: IVPB, Drug Demar 00 form: INJ, ONCE, Start date: 10/04/13 6:25:00, Stop date: 10/04/13 6:25:00 Mannitol No Notes: Memoria 7-19 (Same as: l 10:09: Osmitrol) Demar "Infuse through 0.2 micron filter" Mannitol No Notes: Memoria 7-19 (Same as: l 03:31: Osmitrol) Demar 00 "Infuse through 0.2 micron filter" Fentanyl No Notes: Memoria 7-19 (Same as: l 03:29: Sublimaze) Otis Preservati ve free. Saline No Notes: Memoria Flush 0.9% 7-18 Same as: l 21:00: BD [place] Posiflush Sterile Saline No Notes: Memoria Flush 0.9% 7-18 Same as: l 16:13: BD Otis 00 Posiflush Sterile dexmedetomi No Notes: [place] dine 4 7-18 (Same as: l microgram 14:03: Precedex) Her adams 00 dexmedetomi No 50 mL, [place] dine 7-18 Rate: 5.79 l additive 13:47: ml/hr, Demar 200 00 Infuse microgram over: 8.6 [0.2 hr, Route: microgram/k IV, Dosing g/hr] + Weight Premix 115.8 kg, Diluent Total Sodium Volume: Chloride 50, Start 0.9% date: 10/03/13 8:47:00, Duration: 30 day, Stop date: 11/02/13 8:46:00 Captopril No Notes: Memori a 7-18 Give on l 13:00: empty Demar stomach. 1 hour before meal. (Same As: Capoten) Fentanyl No Notes: Memoria 7-18 (Same as: l 09:54: Sublimaze) Demar Preservati ve free. potassium No Notes: Memori a chloride 7-18 (Same as: l 07:43: Potassium Chloride) Fentanyl No 1,000 Memoria 7-18 microgram, l 05:45: 20 mL, Rate: Titrate as directed, Dosing Weight 115.8, kg, Route: IV, Total Volume: 20 mL, Start Date: 10/03/13 0:45:00, Duration: 30 day, Stop date: 11/02/13 0:44:00, Replace Every: 24 hr Mannitol No Notes: Memoria 7-18 (Same as: l 02:35: Osmitrol) "Infuse through 0.2 micron filter" calcium 2013- No 3,000 mg, Memor ia gluconate + 7-18 30 mL, l Sodium 00:33: Route: [place] Chloride 00 IVPB, 0.9% IV 150 ONCE, mL Dosing Weight 115.8, kg, Priority: STAT, Start date: 10/02/13 19:33:00, Stop date: 10/02/13 19:33:00 Calcium 2013- No 3,000 mg, Memor ia Gluconate 7-17 30 mL, l 23:42: Route: Otis 00 IVPB, ONCE, Dosing Weight 115.8, kg, Priority: STAT, Start date: 10/02/13 18:42:00, Stop date: 10/02/13 18:42:00 cefepime No Notes: Memoria 7-17 (Same As: l 23:00: Maxipime) Otis Vancomycin No Notes: Memor ia 7-17 (Same As: l 21:00: Vancocin) Vancomycin FOR IV SET ONLY Tylenol No Notes: Max [place] 7-17 acetaminop l 21:00: hen = Demar 00 4000mg/day (4 gm/day). (Same as: Tylenol) Labetalol No Notes: Memori a 7-17 Labetalol l 21:00: 300mg tab 00 #16. Refrigerat e. Shake well before using. Give with food. (Same as:Saulo anthony, Trandate) Compound ed Product - formulatio n not commercial ly available* * Ibuprofen No Notes: Memori a 20 MG/ML 7-17 (Same as: l Oral 17:16: Motrin Otis Suspension 00 Children's , Advil Children's ) Take with food. pantoprazol No Notes: For Memoria e 7-17 IV push l 12:30: reconstitu te with 10 ml 0.9% sodium chloride and push over 2 minutes. (Same as: Protonix) potassium No Notes: Memori a chloride -17 (Same as: l 11:00: KCL) Infuse no faster than 10 mEq/hr if given peripheral ly. magnesium No 2 gm, 50 [place] sulfate 7-17 mL, Route: l 10:30: IVPB, Drug form: INJ, ONCE, Start date: 10/02/13 5:30:00, Stop date: 10/02/13 5:30:00 calcium No 3,000 mg, Memor ia gluconate + 7-17 30 mL, l Sodium 10:30: Route: [place]is Chloride IVPB, 0.9% IV 100 ONCE, mL Start date: 10/02/13 5:30:00, Stop date: 10/02/13 5:30:00 potassium No Notes: Memori a phosphate-s -17 (Same as: l odium 09:41: Neutra-Soniya Mauricio n phosphate 00 s) Each 250 mg-278 1.25 gm mg-164 mg pkt has oral powder 250mg phosphorou s. Mix w/2.5oz water and stir. Flagyl No Notes: Memoria 7-17 (Same as: l 01:00: Flagyl) cefepime No Notes: Memoria 7-16 (Same As: l 23:00: Maxipime) Otis Vancomycin No Notes: Memor ia 7-16 (Same As: l 23:00: Vancocin) Demar 00 Vancomycin FOR IV SET ONLY heparin, No Notes: Memoria porcine 7-16 porcine l 21:00: heparin Otis calcium No 3,000 mg, Memor ia gluconate + 7-16 30 mL, l Sodium 06:14: Route: [place] Chloride 00 IVPB, 0.9% IV 100 ONCE, mL Priority: STAT, Start date: 10/01/13 1:14:00, Stop date: 10/01/13 1:14:00 chlorhexidi No Notes: [place] ne 16 (Same As: l gluconate 05:00: Peridex) Herm shelton 1.2 MG/ML 00 Mouthwash [Peridex] Propofol 10 No Notes: If M emoria MG/ML 10-01 Diprivan - l Injectable 03:01: change Chiquita nn Suspension 00 bottle & tubing every 12 hr Per state nursing law propofol can only be given by a nurse if patient is intubated or being intubated (unless the nurse is a COMMERCIAL F[employer]OR COVERING INSTALLER). Same as: Diprivan Omnipaque No 150 ml, Memor ia 300 7-16 Route: l 02:22: INTRAARTER Demar 00 IAL, Dosing Weight 115.8, kg, ONCE, Start date: 09/30/13 21:22:00, Stop date: 09/30/13 21:22:00 Pravastatin No 40 mg, [place] 7-16 Route: PO, l 02:00: Drug form: Demar 00 TAB, Bedtime, Dosing Weight 115.4, kg, Start date: 09/30/13 21:00:00, Duration: 30 day, Stop date: 10/29/13 21:00:00 potassium No Notes: Memori a chloride -16 (Same as: l 01:00: KCL) Otis 00 Infuse no faster than 10 mEq/hr if given peripheral ly. Nitroglycer No 200 Memori a in 7-15 microgram, l 23:38: Route: Otis 00 INTRAARTER IAL, ONCE, Dosing Weight 115.8, kg, Start date: 09/30/13 18:38:00, Stop date: 09/30/13 18:38:00 Pravastatin No Notes: [place] 7-15 (Same as: l 22:00: Pravachol) Demar 00 Sodium No 1,000 mL, Memori a Chloride 7-15 1,000 l 0.154 17:36: ml/hr, Demar MEQ/ML 00 Infuse Injectable Over: 1 Solution hr, Route: IV, ONCE, Priority: STAT, Dosing Weight 115.8 kg, Start date: 09/30/13 12:36:00, Duration: 1 doses or times, Stop date: 09/30/13 12:36:00 Nimodipine No Notes: Memor ia 3 MG/ML 7-15 (Same as l Oral 17:00: Nimodipine Demar Solution 00 oral suspension 30mg/ml) Instill dose into NG tube and then flush with 30ml of NS Protonix No 40 mg, 1 Memor ia 7-15 pkt, l 16:00: Route: PO, Demar 00 Drug form: GRAN/REC, Daily, Dosing Weight 115.4, kg, Start date: 09/30/13 11:00:00, Duration: 30 day, Stop date: 10/30/13 9:00:00 sennosides, No Notes: [place] [facility] 7-15 (Same as: l 14:00: Senokot) Otis 00 Docusate No 100 mg, 1 [place] Sodium 100 7-15 cap, l MG Oral 14:00: Route: PO, Herm shelton Capsule 00 BID, [Colace] Dosing Weight 115.4, kg, Start date: 09/30/13 9:00:00, Duration: 30 day, Stop date: 10/29/13 17:00:00 Ranitidine No Notes: Memor ia 15 MG/ML 7-15 (Same l Oral 14:00: as:Zantac) Otis Solution 00 Non-Formul [Zantac] daryl Item Saline No Notes: Memoria Flush 0.9% 7-15 (Same as: l 14:00: BD Demar 00 Posiflush) Docusate No Notes: Memoria Sodium 100 7-15 (Same as: l MG Oral 14:00: Colace) Otis Capsule pantoprazol No Notes: [place] e 7-15 (Same as: l 14:00: Protonix) Demar 00 Levetiracet No Notes: [place] am 7-15 (Same l 14:00: as:Keppra) Demar 00 Sodium No 1,000 mL, Memori a Chloride 7-15 1,000 l 0.154 07:18: ml/hr, Demar MEQ/ML 00 Infuse Injectable Over: [...] a 0.833 MG/ML -15 (Same as: l 05:00: Duoneb) Ipratropium 00 [place] 0.167 MG/ML Inhalant Solution [DuoNeb] Nimodipine No Notes: Memor ia 7-15 (Same l 05:00: as:Nimotop ) Morphine No Notes: Memoria 7-15 (Same l 04:03: as:MORPhin e Sulfate) Zofran No 4 mg, Memoria 7-15 Route: IV, l 03:59: Drug form: Demar 00 INJ, Q8H, Dosing Weight 115.4, kg, PRN Nausea, Start date: 09/29/13 22:59:00, Duration: 30 day, Stop date: 10/29/13 22:58:00 Tylenol No Notes: Memoria 7-15 (Same as: l 03:59: Tylenol) 00 NS 1,000 mL No 1,000 mL, M emoria 7-15 Rate: 100 l 03:55: ml/hr, Infuse over: 10 hr, Route: IV, [...] times Regular No 7 unit, Memoria Insulin, 7-15 Route: l Human 100 03:55: SUB-Q, Mauricio n UNT/ML 00 PRN, Injectable Dosing Solution Weight 115.4, kg, PRN Abnormal Lab Result, Start date: 09/29/13 22:55:00, Duration: 30 day, Stop date: 10/29/13 22:54:00 Dextrose No 50 mL, Memoria 50% Syringe 7-15 Route: l 03:55: IVP, Dosing Weight 115.4, kg, PRN, PRN Abnormal Lab Result, Start date: 09/29/13 22:55:00, Duration: 30 day, Stop date: 10/29/13 22:54:00 Hydralazine No Notes: [place] 7-15 (Same as: l 03:55: Apresoline ) Regular No 60 units) [place] Insulin, 7-15 Stable for l Human 100 03:52: 28 days at [facility]mann UNT/ML 00 room Injectable temperatur Solution e Expires in days from ____Date Dextrose 2013-0 No 6.25 gm, Memor ia 50% Syringe 7-15 12.5 mL, l 03:52: Route: Demar 00 IVP, Drug Form: INJ, Dosing Weight 115.4, kg, PRN, PRN Abnormal Lab Result, Start date: 09/29/13 22:52:00, Duration: 30 day, Stop date: 11/28/13 22:51:00 Saline No Notes: Memoria Flush 0.9% -15 (Same as: l 03:52: BD Posiflush) Bisacodyl No Notes: Memori a 7-15 (Same As: l 03:52: Dulcolax, Bisco-Lax) Ondansetron No Notes: [place] 7-15 (Same as: l 03:52: Zofran) Labetalol No 10 mg, Memori a 7-15 Route: l 03:52: IVP, Demar 00 Q15Min, Dosing Weight 115.4, kg, PRN Hypertensi on, Start date: 09/29/13 22:52:00, Duration: 3 doses or times, Stop date: Limited # of times Sodium No 1,000 mL, Memori a Chloride -15 Rate: 75 l 0.154 03:52: ml/hr, MEQ/ML 00 Infuse Injectable over: 13.3 Solution hr, Route: IV, Dosing Weight 115.4 kg, Total Volume: 1,000, Start date: 09/29/13 22:52:00, Stop date: 10/29/13 22:51:00 Morphine No Notes: Memoria 7-15 (Same l 03:52: as:MORPhin e Sulfate) fosphenytoi No Special Mem oria n 7-15 Instructio l 03:52: ns: (Loading Dose) Atorvastati [...] dose 2020-01-01 Completed [facility] - 13:54:00 [facility] Afluria single dose Afluria single dose 2020-01-01 Completed [facility] - 13:54:00 [facility] Afluria single dose Afluria single dose 2020-01-01 Completed [facility] - 13:54:00 [facility] Afluria single dose Afluria single dose 2020-01-01 Completed [facility] - 13:54:00 [facility] Afluria single dose Afluria single dose 2020-01-01 Completed [facility] - 13:54:00 [facility] Afluria single dose Afluria single dose 2020-01-01 Completed [facility] - 13:54:00 [facility] Afluria single dose Afluria single dose 2020-01-01 Completed [facility] - 13:54:00 [facility] Afluria single dose Afluria single dose 2020-01-01 Completed [facility] - 13:54:00 [facility] Afluria single dose Afluria single dose 2020-01-01 Completed [facility] - 13:54:00 [facility] Afluria single dose Afluria single dose 2020-01-01 Completed [facility] - 13:54:00 [facility] Afluria single dose Afluria single dose 2020-01-01 Completed [facility] - 13:54:00 [facility] Afluria single dose Afluria single dose 2020-01-01 Completed [facility] - 13:54:00 [facility] Afluria single dose Afluria single dose 2020-01-01 Completed [facility] - 13:54:00 [facility] Afluria single dose Afluria single dose 2020-01-01 Completed [facility] - 13:54:00 [facility] Afluria single dose Afluria single dose 2020-01-01 Completed [facility] - 13:54:00 [facility] Afluria single dose Afluria single dose 2020-01-01 Completed [facility] - 13:54:00 [facility] Afluria single dose Afluria single dose 2020-01-01 Completed [facility] - 13:54:00 [facility] Afluria single dose Afluria single dose 2020-01-01 Completed [facility] - 13:54:00 [facility] Afluria single dose Afluria single dose 2020-01-01 Completed [facility] - 13:54:00 [facility] Afluria single dose Afluria single dose 2020-01-01 Completed [facility] - 13:54:00 [facility] Afluria single dose Afluria single dose 2020-01-01 Completed [facility] - 13:54:00 [facility] Afluria single dose Afluria single dose 2020-01-01 Completed [facility] - 13:54:00 [facility] Afluria single dose Afluria single dose 2020-01-01 Completed [facility] - 13:54:00 [facility] Afluria single dose Afluria single dose 2020-01-01 Completed [facility] - 13:54:00 [facility] pneumococcal 2017-11-01 Completed [facility] 23-valent vaccine 20:09:00 [place] influenza virus 2016-12-16 [facility] 16:50:00 [facility] influenza virus 2015-12-10 [facility] inactivated 14:12:00 [facility] influenza virus 2014-01-22 [facility] inactivated 14:47:00 [facility] Vital Signs Vital Name Observation Time Observation Value Comments Source height 2021-12-19 10:00:00 69 [in_i] [facility] weight 2021-12-19 10:00:00 242 [lb_av] [facility] temperature 2021-12-19 10:00:00 96.6 [degF] [facility] bmi 2021-12-19 10:00:00 35.73 kg/m2 [facility] blood pressure 2021-12-19 10:00:00 136 mm[Hg] [facility] - systolic [facility] blood pressure 2021-12-19 10:00:00 84 mm[Hg] [facility] - diastolic [facility] HEIGHT 2021-12-13 08:00:00 175.3 cm WEIGHT 2021-12-13 [...] WEIGHT 2021-11-30 11:44:00 115.395 kg Systolic blood 2021-08-25 15:31:00 120 mm[Hg] [facility] Diastolic blood 2021-08-25 15:31:00 93 mm[Hg] [facility] Heart rate 2021-08-25 15:31:00 76 /min [facility] Respiratory rate 2021-08-25 15:31:00 16 /min [facility] Oxygen saturation in 2021-08-25 15:31:00 97 /min [facility] blood by [facility] Body temperature 2021-08-25 12:50:00 36.33 [facility] Body weight 2021-08-25 12:50:00 122.471 kg [facility] BMI 2021-08-25 12:50:00 39.87 kg/m2 [facility] Systolic blood 2021-08-22 21:26:00 113 mm[Hg] [facility] Diastolic blood 2021-08-22 21:26:00 73 mm[Hg] [facility] Heart rate 2021-08-22 21:26:00 78 /min [facility] Body temperature 2021-08-22 21:26:00 36.78 Tereza [facility] Respiratory rate 2021-08-22 21:26:00 16 /min [facility] Oxygen saturation in 2021-08-22 21:26:00 95 /min [facility] Ar[facility]ial blood by [place] [employer] [facility]xim[facility] Body height 2021-08-13 11:05:00 175.3 cm [facility] Body weight 2021-08-13 11:05:00 122.471 kg [facility] BMI 2021-08-13 11:05:00 39.87 kg/m2 [facility] Systolic blood 2021-07-26 17:21:00 146 mm[Hg] [facility] Diastolic blood 2021-07-26 17:21:00 95 mm[Hg] [facility] Heart rate 2021-07-26 17:21:00 71 /min [facility] Respiratory rate 2021-07-26 17:21:00 18 /min [facility] Oxygen saturation in 2021-07-26 17:21:00 93 /min [facility] Arterial blood by [facility] Pulse oximetry Branch Body temperature 2021-07-26 14:32:00 37.17 Tereza [facility] Body height 2021-07-26 14:32:00 175.3 cm [facility] Body weight 2021-07-26 14:32:00 122.471 kg [facility] BMI 2021-07-26 14:32:00 39.87 kg/m2 [facility] Systolic blood 2021-07-14 02:00:00 158 mm[Hg] [facility] Diastolic blood 2021-07-14 02:00:00 94 mm[Hg] [facility] Heart rate 2021-07-14 02:00:00 59 /min [facility] Respiratory rate 2021-07-14 02:00:00 16 /min [facility] Oxygen saturation in 2021-07-14 02:00:00 93 /min [facility] Arterial blood by [facility] Pulse oximetry Branch Body temperature 2021-07-13 23:38:00 36.44 Tereza [facility] Body height 2021-07-13 23:38:00 175.3 cm [facility] Body weight 2021-07-13 23:38:00 122.471 kg [facility] BMI 2021-07-13 23:38:00 39.87 kg/m2 [facility] Systolic blood 2021-06-08 18:00:00 118 mm[Hg] [facility] Diastolic blood 2021-06-08 18:00:00 80 mm[Hg] [facility] Heart rate 2021-06-08 18:00:00 73 /min [facility] Respiratory rate 2021-06-08 18:00:00 20 /min [facility] of [facility] Oxygen saturation in 2021-06-08 17:00:00 95 /min [facility] Arterial blood by [facility] Pulse oximetry Branch Body temperature 2021-06-08 16:22:00 35.83 Tereza [facility] ersity of [facility] Body height 2021-06-08 16:19:00 175.3 cm [facility] Body weight 2021-06-08 16:19:00 118.389 kg [facility] BMI 2021-06-08 16:19:00 38.54 kg/m2 [facility] Systolic blood 2021-06-07 13:13:00 123 mm[Hg] Univer [facility]ity of pressure [facility] Diastolic blood 2021-06-07 13:13:00 72 mm[Hg] [facility] Heart rate 2021-06-07 13:13:00 79 /min [facility] Body temperature 2021-06-07 13:13:00 36.89 Tereza [facility] ersity of [facility] Respiratory rate 2021-06-07 13:13:00 18 /min Univ ersity of [facility] Body height 2021-06-07 13:13:00 175.3 cm [facility] Body weight 2021-06-07 13:13:00 118.389 kg [facility] BMI 2021-06-07 13:13:00 38.54 kg/m2 [facility] Oxygen saturation in 2021-06-07 13:13:00 96 /min [facility] Arterial blood by [facility] Pulse oximetry Branch height 2020-03-09 14:20:00 69 [in_i] Common S [facility] weight 2020-03-09 14:20:00 265 [lb_av] Common [facility] temperature 2020-03-09 14:20:00 98 [degF] [facility] bmi 2020-03-09 14:20:00 39.13 kg/m2 Common S [facility] blood pressure 2020-03-09 14:20:00 130 mm[Hg] [facility] blood pressure 2020-03-09 14:20:00 74 mm[Hg] [facility] height 2020-02-16 14:00:00 69 [in_i] [facility] weight 2020-02-16 14:00:00 260 [lb_av] [facility] temperature 2020-02-16 14:00:00 98.4 [degF] Common S p[facility] bmi 2020-02-16 14:00:00 38.39 kg/m2 Common [facility] blood pressure 2020-02-16 14:00:00 135 mm[Hg] [facility] blood pressure 2020-02-16 14:00:00 84 mm[Hg] [facility] Systolic blood 2019 16:08:00 122 mm[Hg] [facility] Diastolic blood 2019 16:08:00 79 mm[Hg] [facility] Heart rate 2019 16:08:00 59 /min [facility] Body temperature 2019 16:08:00 37.06 Tereza [facility] 2019 16:08:00 18 /min [facility] Body height 2019 16:08:00 175.3 cm [facility] Body weight 2019 16:08:00 [facility] 16:08:00 39.13 kg/m2 [facility] Oxygen saturation in 2019 16:08:00 96 /min [facility] Arterial blood by [facility] Pulse oximetry Branch Systolic blood 2019-05-22 20:44:00 115 mm[Hg] Univer sity of pressure [facility] Diastolic blood 2019-05-22 20:44:00 71 mm[Hg] [facility] Heart rate 2019-05-22 20:44:00 78 /min [facility]i [facility] Body temperature 2019-05-22 20:44:00 36.22 Tereza [facility] Respiratory rate 2019-05-22 20:44:00 18 /min [facility] Body height 2019-05-22 20:44:00 175.3 cm [facility] Body weight 2019-05-22 20:44:00 116.847 kg [facility] BMI 2019-05-22 20:44:00 38.04 kg/m2 [facility] Oxygen saturation in 2019-05-22 20:44:00 96 /min [facility] Arterial blood by [facility] Pulse oximetry Branch Systolic blood 2019-04-08 21:46:00 123 mm[Hg] [facility] Diastolic blood 2019-04-08 21:46:00 58 mm[Hg] [facility] Heart rate 2019-04-08 21:46:00 75 /min [facility] of [facility] Respiratory rate 2019-04-08 21:46:00 16 /min Univ ersity of [facility] Oxygen saturation in 2019-04-08 21:46:00 91 /min [facility] Arterial blood by [facility] Pulse oximetry Branch Body temperature 2019-04-08 19:49:00 38.39 Tereza [facility] Body weight 2019-04-08 19:00:00 127.007 kg [facility] BMI 2019-04-08 19:00:00 41.35 kg/m2 [facility] Systolic blood 2019-04-01 16:52:00 117 mm[Hg] [facility] Diastolic blood 2019-04-01 16:52:00 71 mm[Hg] Unive rsity of pressure [facility] Heart rate 2019-04-01 16:52:00 80 /min [facility] Body temperature 2019-04-01 16:52:00 36.06 Tereza [facility] Respiratory rate 2019-04-01 16:52:00 18 /min [facility] Body height 2019-04-01 16:52:00 175.3 cm [facility] Body weight 2019-04-01 16:52:00 127.007 kg [facility] BMI 2019-04-01 16:52:00 41.35 kg/m2 [facility] Oxygen saturation in 2019-04-01 16:52:00 96 /min [facility] by [facility] Pulse oximetry Branch Systolic blood 2018-11-12 19:52:00 125 mm[Hg] Univer sity of pressure [facility] Diastolic blood 2018-11-12 19:52:00 83 mm[Hg] Unive rsity of pressure [facility] Heart rate 2018-11-12 19:52:00 80 /min [facility] Body temperature 2018-11-12 19:52:00 36.61 Tereza [facility] rate 2018-11-12 19:52:00 18 /min [facility] Oxygen saturation in 2018-11-12 19:52:00 95 /min [facility] blood by [facility] Pulse oximetry Branch Systolic blood 2021-12-14 11:10:00 122 mm[Hg] [facility] Diastolic blood 2021-12-14 11:10:00 59 mm[Hg] [facility] Heart rate 2021-12-14 11:10:00 74 /min [facility] Body temperature 2021-12-14 11:10:00 35.83 Tereza [facility] Respiratory rate 2021-12-14 11:10:00 18 /min [facility] Oxygen saturation in 2021-12-14 11:10:00 94 /min [facility] Arterial blood by [facility] Pulse oximetry Body height 2021-12-13 08:00:00 175.3 cm [facility] Body weight 2021-12-13 08:00:00 109.861 kg [facility] BMI 2021-12-13 08:00:00 35.77 kg/m2 [facility] Systolic (mm Hg) 2020-10-26 15:31:00 [facility] Diastolic (mm Hg) 2020-10-26 15:31:00 [facility] Heart Rate 2020-10-26 15:31:00 [facility] Respitory Rate 2020-10-26 15:31:00 [facility] Height 2020-10-26 15:31:00 175.26 cm [facility] BMI Calculated 2020-10-26 15:31:00 [facility] Weight 2020-10-26 15:31:00 [facility] Systolic (mm Hg) 2020-08-30 19:03:00 Tom [facility] Diastolic (mm Hg) 2020-08-30 19:03:00 [facility] Heart Rate 2020-08-30 19:03:00 [facility] Respitory Rate 2020-08-30 19:03:00 [facility] Height 2020-08-30 19:03:00 175.26 cm [facility] Weight 2020-08-30 19:03:00 [facility] BMI Calculated 2020-08-30 19:03:00 [facility] Systolic (mm Hg) 2020-03-16 17:36:00 Tom [facility] Diastolic (mm Hg) 2020-03-16 17:36:00 [facility] Heart Rate 2020-03-16 17:36:00 [facility] Respitory Rate 2020-03-16 17:36:00 [facility] Height 2020-03-16 17:36:00 175.26 cm [facility] BMI Calculated 2020-03-16 17:36:00 [facility] Weight 2020-03-16 17:36:00 [facility] Systolic (mm Hg) 2019-12-17 14:56:00 Tom [facility] Diastolic (mm Hg) 2019-12-17 14:56:00 [facility] Heart Rate 2019-12-17 14:56:00 [facility] Respitory Rate 2019-12-17 14:56:00 [facility] Systolic (mm Hg) 2019-09-16 17:25:00 Tom [facility] Diastolic (mm Hg) 2019-09-16 17:25:00 [facility] Heart Rate 2019-09-16 17:25:00 [facility] Respitory Rate 2019-09-16 17:25:00 [facility] Height 2019-09-16 17:25:00 175.26 cm [facility] BMI Calculated 2019-09-16 17:25:00 [facility] Weight 2019-09-16 17:25:00 [facility] Systolic (mm Hg) 2019-08-26 14:32:00 Tom [facility] Diastolic (mm Hg) 2019-08-26 14:32:00 [facility] Heart Rate 2019-08-26 14:32:00 [facility] Respitory Rate 2019-08-26 14:32:00 [facility] Temperature Oral (F) 2019-08-26 14:32:00 98.8 F [facility] Height 2019-08-26 14:32:00 175.26 cm [facility] BMI Calculated 2019-08-26 14:32:00 [facility] Weight 2019-08-26 14:32:00 [facility] Heart Rate 2019-02-21 18:42:00 [facility] Respitory Rate 2019-02-21 18:42:00 [facility] Systolic (mm Hg) 2019-02-21 18:42:00 Tom [facility] Diastolic (mm Hg) 2019-02-21 18:42:00 [facility] Height 2019-02-21 17:22:00 175.26 cm [facility] Heart Rate 2019-02-21 13:46:00 [facility] Respitory Rate 2019-02-21 13:46:00 [facility] Systolic (mm Hg) 2019-02-21 13:46:00 Tom [facility] Diastolic (mm Hg) 2019-02-21 13:46:00 [facility] Heart Rate 2019-02-21 02:00:00 [facility] Respitory Rate 2019-02-21 02:00:00 [facility] Systolic (mm Hg) 2019-02-21 02:00:00 Tom [facility] Diastolic (mm Hg) 2019-02-21 02:00:00 [facility] Temperature Oral (F) 2019-02-18 01:30:00 97.4 F [facility] Temperature Oral (F) 2019-02-09 19:21:00 97.8 F [facility] Height 2019-02-08 04:19:00 175.26 cm [facility] Height 2019-02-08 04:18:00 175.26 cm [facility] Weight 2019-02-08 04:18:00 [facility] BMI Calculated 2019-02-08 04:18:00 [facility] Temperature Oral (F) 2019-02-07 22:00:00 98.6 F [facility] Heart Rate 2019-02-07 22:00:00 [facility] Respitory Rate 2019-02-07 22:00:00 [facility] Systolic (mm Hg) 2019-02-07 22:00:00 Tom [facility] Diastolic (mm Hg) 2019-02-07 22:00:00 [facility] Temperature Oral (F) 2019-02-07 18:00:00 98.4 F [facility] Heart Rate 2019-02-07 18:00:00 [facility] Respitory Rate 2019-02-07 18:00:00 [facility] Systolic (mm Hg) 2019-02-07 18:00:00 [facility] Diastolic (mm Hg) 2019-02-07 18:00:00 [facility] Temperature Oral (F) 2019-02-07 14:00:00 98.3 F [facility] Heart Rate 2019-02-07 14:00:00 [facility] Respitory Rate 2019-02-07 14:00:00 [facility] Systolic (mm Hg) 2019-02-07 14:00:00 Tom [facility] Diastolic (mm Hg) 2019-02-07 14:00:00 [facility] Height 2019-02-06 11:00:00 175.26 cm [facility] Height 2019-02-05 11:00:00 175.26 cm [facility] Height 2019-02-04 08:57:00 175.26 cm [facility] Weight 2019-02-04 08:57:00 [facility] BMI Calculated 2019-02-04 08:57:00 [facility] BMI Calculated 2018-09-27 20:42:00 [facility] Height 2018-09-27 20:42:00 175.26 cm [facility] Weight 2018-09-27 20:42:00 [facility] Heart Rate 2018-09-27 20:42:00 [facility] Systolic (mm Hg) 2018-09-27 20:42:00 Tom [facility] Diastolic (mm Hg) 2018-09-27 20:42:00 [facility] Respitory Rate 2018-09-24 16:36:00 [facility] Systolic (mm Hg) 2018-09-24 16:36:00 Tom [facility] Diastolic (mm Hg) 2018-09-24 16:36:00 [facility] Systolic (mm Hg) 2018-09-24 12:44:00 [facility] Diastolic (mm Hg) 2018-09-24 12:44:00 [facility] Respitory Rate 2018-09-24 12:44:00 [facility] Systolic (mm Hg) 2018-09-24 09:00:00 [facility] Diastolic (mm Hg) 2018-09-24 09:00:00 [facility] Respitory Rate 2018-09-24 09:00:00 [facility] Weight 2018-09-24 05:36:00 [facility] Height 2018-09-24 05:36:00 175.26 cm [facility] BMI Calculated 2018-09-24 05:36:00 [facility] Temperature Oral (F) 2018-08-04 17:50:00 98.2 F [facility] Systolic (mm Hg) 2018-08-04 17:50:00 [facility] Diastolic (mm Hg) 2018-08-04 17:50:00 [facility] Respitory Rate 2018-08-04 17:50:00 [facility] Heart Rate 2018-08-04 17:50:00 [facility] Systolic (mm Hg) 2018-08-04 13:21:00 [facility] Diastolic (mm Hg) 2018-08-04 13:21:00 [facility] Heart Rate 2018-08-04 13:21:00 [facility] Respitory Rate 2018-08-04 13:21:00 [facility] Temperature Oral (F) 2018-08-04 13:21:00 97.6 F [facility] Systolic (mm Hg) 2018-08-04 08:56:00 [facility] Diastolic (mm Hg) 2018-08-04 08:56:00 [facility] Respitory Rate 2018-08-04 08:56:00 [facility] Heart Rate 2018-08-04 08:56:00 [facility] Temperature Oral (F) 2018-08-04 08:56:00 97.7 F [facility] BMI Calculated 2018-08-03 10:26:00 [facility] Weight 2018-08-03 10:26:00 [facility] Height 2018-08-03 10:26:00 175.26 cm [facility] Weight 2018-08-02 20:55:00 [facility] BMI Calculated 2018-08-02 20:55:00 [facility] Height 2018-08-02 20:55:00 172.72 cm [facility] BMI Calculated 2018-01-25 18:50:00 [facility] Weight 2018-01-25 18:50:00 [facility] Height 2018-01-25 18:50:00 175.26 cm [facility] Heart Rate 2018-01-25 18:50:00 [facility] Temperature Oral (F) 2018-01-25 18:50:00 98.1 F [facility] Systolic (mm Hg) 2018-01-25 18:50:00 [facility] Diastolic (mm Hg) 2018-01-25 18:50:00 [facility] Systolic (mm Hg) 2017-11-01 17:17:00 [facility] Diastolic (mm Hg) 2017-11-01 17:17:00 [facility] Temperature Oral (F) 2017-11-01 17:17:00 98.1 F [facility] Heart Rate 2017-11-01 17:17:00 [facility] Respitory Rate 2017-11-01 17:17:00 [facility] Systolic (mm Hg) 2017-11-01 13:43:00 [facility] Diastolic (mm Hg) 2017-11-01 13:43:00 [facility] Heart Rate 2017-11-01 13:43:00 [facility] Temperature Oral (F) 2017-11-01 13:43:00 97.2 F [facility] Respitory Rate 2017-11-01 13:43:00 [facility] Diastolic (mm Hg) 2017-11-01 08:23:00 [facility] Systolic (mm Hg) 2017-11-01 08:23:00 [facility] Temperature Oral (F) 2017-11-01 08:23:00 98.1 F [facility] Heart Rate 2017-11-01 08:23:00 [facility] Respitory Rate 2017-11-01 08:23:00 [facility] BMI Calculated 2017-11-01 06:38:00 [facility] Weight 2017-11-01 06:38:00 [facility] Height 2017-11-01 06:38:00 175.26 cm [facility] Weight 2017-11-01 00:25:00 [facility] Temperature Oral (F) 2017-06-29 01:08:00 98.0 F [facility] Temperature Oral (F) 2017-06-28 20:19:00 96.7 F [facility] Systolic (mm Hg) 2017-06-28 20:00:00 [facility] Diastolic (mm Hg) 2017-06-28 20:00:00 [facility] Respitory Rate 2017-06-28 20:00:00 [facility] Temperature Oral (F) 2017-06-28 16:48:00 97.9 F [facility] Respitory Rate 2017-06-28 15:00:00 [facility] Systolic (mm Hg) 2017-06-28 15:00:00 [facility] Diastolic (mm Hg) 2017-06-28 15:00:00 [facility] Weight 2017-06-28 14:00:00 [facility] Systolic (mm Hg) 2017-06-28 13:00:00 [facility] Diastolic (mm Hg) 2017-06-28 13:00:00 [facility] Respitory Rate 2017-06-28 13:00:00 [facility] Weight 2017-06-27 14:00:00 [facility] Height 2017-06-23 23:38:00 175.26 cm [facility] Weight 2017-06-23 23:38:00 [facility] BMI Calculated 2017-06-23 23:38:00 [facility] Systolic (mm Hg) 2016-12-17 00:10:00 [facility] Diastolic (mm Hg) 2016-12-17 00:10:00 [facility] Temperature Oral (F) 2016-12-17 00:10:00 98.2 F [facility] Heart Rate 2016-12-17 00:10:00 [facility] Respitory Rate 2016-12-17 00:10:00 [facility] Temperature Oral (F) 2016-12-16 20:29:00 97 F [facility] Heart Rate 2016-12-16 20:29:00 [facility] Respitory Rate 2016-12-16 20:29:00 [facility] Systolic (mm Hg) 2016-12-16 20:29:00 [facility] Diastolic (mm Hg) 2016-12-16 20:29:00 [facility] Systolic (mm Hg) 2016-12-16 16:36:00 [facility] Diastolic (mm Hg) 2016-12-16 16:36:00 [facility] Temperature Oral (F) 2016-12-16 16:36:00 97 F [facility] Heart Rate 2016-12-16 16:36:00 [facility] Respitory Rate 2016-12-16 16:36:00 [facility] Height 2016-12-16 11:17:00 175.26 cm [facility] BMI Calculated 2016-12-16 11:17:00 [facility] Weight 2016-12-16 11:17:00 [facility] Weight 2016-12-16 01:22:00 [facility] Height 2016-12-16 01:22:00 175.26 cm [facility] BMI Calculated 2016-12-16 01:22:00 [facility] Respitory Rate 2016-07-11 13:30:00 [facility] Diastolic (mm Hg) 2016-07-11 12:15:00 [facility] Systolic (mm Hg) 2016-07-11 12:15:00 [facility] Respitory Rate 2016-07-11 12:15:00 [facility] Heart Rate 2016-07-11 12:15:00 [facility] Diastolic (mm Hg) 2016-07-11 01:12:00 [facility] Systolic (mm Hg) 2016-07-11 01:12:00 [facility] Heart Rate 2016-07-11 01:12:00 [facility] Respitory Rate 2016-07-11 01:12:00 [facility] Heart Rate 2016-07-10 18:30:00 [facility] Systolic (mm Hg) 2016-07-10 18:30:00 [facility] Diastolic (mm Hg) 2016-07-10 18:30:00 [facility] Weight 2016-07-08 00:17:00 [facility] Temperature Oral (F) 2016-07-04 19:25:00 98.3 F [facility] Temperature Oral (F) 2016-07-04 12:30:00 97.6 F [facility] Weight 2016-06-30 22:53:00 [facility] Height 2016-06-30 21:59:00 175.26 cm [facility] Temperature Oral (F) 2016-06-29 12:15:00 97 F [facility] Height 2016-06-26 21:48:00 175.26 cm [facility] Weight 2016-06-23 14:55:00 [facility] Height 2016 21:45:00 175.26 cm [facility] BMI Calculated 2016 21:45:00 [facility] Systolic (mm Hg) 2016-05-02 15:03:00 [facility] Diastolic (mm Hg) 2016-05-02 15:03:00 [facility] Heart Rate 2016-05-02 15:03:00 [facility] Respitory Rate 2016-05-02 15:03:00 [facility] Temperature Oral (F) 2016-04-25 23:42:00 98.4 F [facility] Systolic (mm Hg) 2016-04-25 23:42:00 [facility] Diastolic (mm Hg) 2016-04-25 23:42:00 [facility] Respitory Rate 2016-04-25 23:42:00 [facility] Heart Rate 2016-04-25 23:42:00 [facility] Systolic (mm Hg) 2016-04-25 22:20:00 [facility] Diastolic (mm Hg) 2016-04-25 22:20:00 [facility] Heart Rate 2016-04-25 22:20:00 [facility] Respitory Rate 2016-04-25 22:20:00 [facility] BMI Calculated 2016-04-25 20:20:00 [facility] Weight 2016-04-25 20:20:00 [facility] Height 2016-04-25 20:20:00 175.26 cm [facility] Temperature Oral (F) 2016-04-25 20:20:00 98.3 F [facility] Heart Rate 2016-04-25 20:20:00 [facility] Respitory Rate 2016-04-25 20:20:00 [facility] Systolic (mm Hg) 2016-04-25 20:20:00 [facility] Diastolic (mm Hg) 2016-04-25 20:20:00 [facility] Respitory Rate 2016-04-09 00:31:00 [facility] Heart Rate 2016-04-09 00:31:00 [facility] Temperature Oral (F) 2016-04-09 00:31:00 98.2 F [facility] Systolic (mm Hg) 2016-04-09 00:31:00 [facility] Diastolic (mm Hg) 2016-04-09 00:31:00 [facility] Weight 2016-04-08 20:43:00 [facility] BMI Calculated 2016-04-08 20:43:00 [facility] Height 2016-04-08 20:43:00 175.26 cm [facility] Systolic (mm Hg) 2016-04-08 20:43:00 [facility] Diastolic (mm Hg) 2016-04-08 20:43:00 [facility] Temperature Oral (F) 2016-04-08 20:43:00 98.0 F [facility] Respitory Rate 2016-04-08 20:43:00 [facility] Heart Rate 2016-04-08 20:43:00 [facility] Respitory Rate 2016-04-01 04:13:00 [facility] Systolic (mm Hg) 2016-04-01 04:13:00 [facility] Diastolic (mm Hg) 2016-04-01 04:13:00 [facility] Temperature Oral (F) 2016-04-01 04:13:00 98.1 F [facility] Respitory Rate 2016-04-01 01:34:00 [facility] Systolic (mm Hg) 2016-04-01 01:34:00 [facility] Diastolic (mm Hg) 2016-04-01 01:34:00 [facility] Systolic (mm Hg) 2016-04-01 01:24:00 [facility] Diastolic (mm Hg) 2016-04-01 01:24:00 [facility] Respitory Rate 2016-04-01 01:10:00 [facility] Heart Rate 2016-04-01 00:44:00 [facility] Weight 2016-03-31 21:13:00 [facility] BMI Calculated 2016-03-31 21:13:00 [facility] Height 2016-03-31 21:13:00 175.26 cm [facility] Temperature Oral (F) 2016-03-31 21:13:00 97.7 F [facility] Heart Rate 2016-03-31 21:13:00 [facility] Diastolic (mm Hg) 2015-12-30 18:30:00 [facility] Heart Rate 2015-12-30 18:30:00 [facility] Systolic (mm Hg) 2015-12-30 18:30:00 [facility] Respitory Rate 2015-12-30 18:30:00 [facility] Heart Rate 2015-12-30 12:30:00 [facility] Diastolic (mm Hg) 2015-12-30 12:30:00 [facility] Respitory Rate 2015-12-30 12:30:00 [facility] Systolic (mm Hg) 2015-12-30 12:30:00 [facility] Heart Rate 2015-12-30 01:00:00 [facility] Systolic (mm Hg) 2015-12-30 01:00:00 [facility] Respitory Rate 2015-12-30 01:00:00 [facility] Diastolic (mm Hg) 2015-12-30 01:00:00 [facility] Temperature Oral (F) 2015-12-23 13:00:00 97.9 F [facility] Temperature Oral (F) 2015-12-21 13:15:00 98 F [facility] Temperature Oral (F) 2015-12-16 18:04:00 98.3 F [facility] Heart Rate 2015-12-10 16:35:00 [facility] Temperature Oral (F) 2015-12-10 16:35:00 98.3 F [facility] Respitory Rate 2015-12-10 16:35:00 [facility] al [facility] Systolic (mm Hg) 2015-12-10 16:35:00 Tom rial [facility] Diastolic (mm Hg) 2015-12-10 16:35:00 [facility] Systolic (mm Hg) 2015-12-10 13:05:00 Tom rial [facility] Diastolic (mm Hg) 2015-12-10 13:05:00 [facility] Temperature Oral (F) 2015-12-10 13:05:00 97.9 F [facility] Heart Rate 2015-12-10 13:05:00 [facility] Respitory Rate 2015-12-10 13:05:00 [facility] Systolic (mm Hg) 2015-12-10 08:12:00 Tom rial [facility] Diastolic (mm Hg) 2015-12-10 08:12:00 [facility] Respitory Rate 2015-12-10 08:12:00 [facility] Heart Rate 2015-12-10 08:12:00 [facility] Temperature Oral (F) 2015-12-10 08:12:00 98.2 F [facility] BMI Calculated 2015-12-09 21:46:00 [facility] Weight 2015-12-09 21:46:00 [facility] Height 2015-12-09 21:46:00 175.26 cm [facility] Height 2015-12-09 12:50:00 175.26 cm [facility] Weight 2015-12-09 12:50:00 [facility] BMI Calculated 2015-12-09 12:50:00 [facility] BMI Calculated 2015-12-08 15:40:00 [facility] Weight 2015-12-08 15:40:00 [facility] Height 2015-12-08 15:40:00 175.2 cm [facility] Height 2015-11-24 13:01:00 175.26 cm [facility] Height 2015-11-10 02:14:00 175.26 cm [facility] Weight 2015-11-10 02:14:00 [facility] BMI Calculated 2015-11-10 02:14:00 [facility] Systolic (mm Hg) 2015-08-20 18:46:00 Tom rial [facility] Diastolic (mm Hg) 2015-08-20 18:46:00 [facility] Respitory Rate 2015-08-20 18:46:00 [facility] Systolic (mm Hg) 2015-08-20 17:45:00 Tom [facility] Diastolic (mm Hg) 2015-08-20 17:45:00 [facility] Respitory Rate 2015-08-20 17:45:00 [facility] Respitory Rate 2015-08-20 17:30:00 [facility] Systolic (mm Hg) 2015-08-20 17:30:00 Tom [facility] Diastolic (mm Hg) 2015-08-20 17:30:00 [facility] Weight 2015-08-20 12:06:00 [facility] BMI Calculated 2015-08-20 12:06:00 [facility] Height 2015-08-20 12:06:00 175.26 cm [facility] Heart Rate 2015-08-20 12:06:00 [facility] Height 2015-08-20 12:00:00 175.26 cm [facility] BMI Calculated 2015-08-20 12:00:00 [facility] Weight 2015-08-20 12:00:00 [facility] Systolic (mm Hg) 2015-08-06 18:00:00 Tom [facility] Diastolic (mm Hg) 2015-08-06 18:00:00 [facility] Respitory Rate 2015-08-06 18:00:00 [facility] Heart Rate 2015-08-06 18:00:00 [facility] Systolic (mm Hg) 2015-08-06 17:45:00 Tom [facility] Diastolic (mm Hg) 2015-08-06 17:45:00 [facility] Respitory Rate 2015-08-06 17:45:00 [facility] Heart Rate 2015-08-06 17:45:00 [facility] Systolic (mm Hg) 2015-08-06 17:30:00 Tom rial [facility] Diastolic (mm Hg) 2015-08-06 17:30:00 [facility] Respitory Rate 2015-08-06 17:30:00 [facility] Heart Rate 2015-08-06 17:30:00 [facility] BMI Calculated 2015-08-06 13:00:00 [facility] Height 2015-08-06 13:00:00 175.26 cm [facility] Weight 2015-08-06 13:00:00 [facility] Systolic (mm Hg) 2015-08-02 16:45:00 Tom [facility] Diastolic (mm Hg) 2015-08-02 16:45:00 [facility] Respitory Rate 2015-08-02 16:45:00 [facility] Systolic (mm Hg) 2015-08-02 16:30:00 Tom [facility] Diastolic (mm Hg) 2015-08-02 16:30:00 [facility] Respitory Rate 2015-08-02 16:30:00 [facility] Respitory Rate 2015-08-02 16:15:00 [facility] Systolic (mm Hg) 2015-08-02 16:15:00 Tom [facility] Diastolic (mm Hg) 2015-08-02 16:15:00 [facility] BMI Calculated 2015-08-02 13:23:00 [facility] Weight 2015-08-02 13:23:00 [facility] Height 2015-08-02 13:23:00 172.72 cm [facility] BMI Calculated 2015-08-02 12:20:00 [facility] Weight 2015-08-02 12:20:00 [facility] Height 2015-08-02 12:20:00 175.26 cm [facility] Respitory Rate 2015-06-29 21:53:00 [facility] Heart Rate 2015-06-29 21:53:00 [facility] Systolic (mm Hg) 2015-06-29 21:53:00 Tom rial [facility] Diastolic (mm Hg) 2015-06-29 21:53:00 [facility] Diastolic (mm Hg) 2015-06-29 12:30:00 [facility] Respitory Rate 2015-06-29 12:30:00 [facility] Systolic (mm Hg) 2015-06-29 12:30:00 [facility] Heart Rate 2015-06-29 12:30:00 [facility] Diastolic (mm Hg) 2015-06-29 05:08:00 [facility] Systolic (mm Hg) 2015-06-29 05:08:00 Tom [facility] Respitory Rate 2015-06-29 05:08:00 [facility] Heart Rate 2015-06-29 05:08:00 [facility] Temperature Oral (F) 2015-06-29 05:08:00 97.1 F [facility] Temperature Oral (F) 2015-06-28 21:00:00 98.3 F [facility] Weight 2015-06-27 00:04:00 [facility] Temperature Oral (F) 2015-06-26 05:00:00 97.6 F [facility] BMI Calculated 2015-06-09 16:51:00 [facility] Height 2015-06-09 16:51:00 175.26 cm [facility] Weight 2015-06-09 16:51:00 [facility] Systolic (mm Hg) 2015-05-24 14:52:00 Tom [facility] Diastolic (mm Hg) 2015-05-24 14:52:00 [facility] BMI Calculated 2015-05-24 14:52:00 [facility] Weight 2015-05-24 14:52:00 [facility] Height 2015-05-24 14:52:00 175.26 cm [facility] Heart Rate 2015-05-24 14:52:00 [facility] Respitory Rate 2015-05-24 14:52:00 [facility] Height 2015-05-11 21:20:00 175.26 cm [facility] Weight 2015-05-11 21:20:00 [facility] BMI Calculated 2015-05-11 21:20:00 [facility] Respitory Rate 2015-05-11 21:20:00 [facility] Heart Rate 2015-05-11 21:20:00 [facility] Systolic (mm Hg) 2015-05-11 21:20:00 Tom rial [facility] Diastolic (mm Hg) 2015-05-11 21:20:00 [facility] Height 2015-04-28 19:01:00 175.26 cm [facility] BMI Calculated 2015-04-28 19:01:00 [facility] Weight 2015-04-28 19:01:00 [facility] Temperature Oral (F) 2015-04-28 19:01:00 98.2 F [facility] Respitory Rate 2015-04-28 19:01:00 [facility] Heart Rate 2015-04-28 19:01:00 [facility] Systolic (mm Hg) 2015-04-28 19:01:00 Tom rial [facility] Diastolic (mm Hg) 2015-04-28 19:01:00 [facility] Heart Rate 2015-04-27 18:45:00 [facility] Respitory Rate 2015-04-27 18:45:00 [facility] Systolic (mm Hg) 2015-04-27 18:45:00 Tom rial [facility] Diastolic (mm Hg) 2015-04-27 18:45:00 [facility] Heart Rate 2015-04-27 17:45:00 [facility] Respitory Rate 2015-04-27 17:45:00 [facility] Systolic (mm Hg) 2015-04-27 17:45:00 [facility] Diastolic (mm Hg) 2015-04-27 17:45:00 [facility] Heart Rate 2015-04-27 17:15:00 [facility] Respitory Rate 2015-04-27 17:15:00 [facility] Systolic (mm Hg) 2015-04-27 17:15:00 Tom rial [facility] Diastolic (mm Hg) 2015-04-27 17:15:00 [facility] Weight 2015-04-27 13:57:00 [facility] Height 2015-04-27 13:57:00 175.26 cm [facility] BMI Calculated 2015-04-27 13:57:00 [facility] Weight 2015-04-22 16:48:00 [facility] BMI Calculated 2015-04-22 16:48:00 [facility] Height 2015-04-22 16:48:00 175.26 cm [facility] Respitory Rate 2014-09-17 12:26:00 [facility] Systolic (mm Hg) 2014-09-17 12:26:00 Tom [facility] Diastolic (mm Hg) 2014-09-17 12:26:00 [facility] Temperature Oral (F) 2014-09-17 12:26:00 98.3 F [facility] Heart Rate 2014-09-17 12:26:00 [facility] Respitory Rate 2014-09-17 10:19:00 [facility] Systolic (mm Hg) 2014-09-17 10:19:00 Tom rial [facility] Diastolic (mm Hg) 2014-09-17 10:19:00 [facility] Temperature Oral (F) 2014-09-17 10:19:00 97.9 F [facility] Heart Rate 2014-09-17 10:19:00 [facility] BMI Calculated 2014-09-17 10:19:00 [facility] Height 2014-09-17 10:19:00 175.26 cm [facility] Weight 2014-09-17 10:19:00 [facility] Systolic (mm Hg) 2014-04-05 13:15:00 Tom rial [facility] Diastolic (mm Hg) 2014-04-05 13:15:00 [facility] Respitory Rate 2014-04-05 13:15:00 [facility] Temperature Oral (F) 2014-04-05 12:09:00 97.8 F [facility] Respitory Rate 2014-04-05 12:09:00 [facility] Heart Rate 2014-04-05 12:09:00 [facility] Systolic (mm Hg) 2014-04-05 12:09:00 Tom [facility] Diastolic (mm Hg) 2014-04-05 12:09:00 [facility] Weight 2014-04-05 12:09:00 [facility] BMI Calculated 2014-04-05 12:09:00 [facility] Height 2014-04-05 12:09:00 175.26 cm [facility] Diastolic (mm Hg) 2014-01-28 21:52:00 [facility] Respitory Rate 2014-01-28 21:52:00 [facility] Systolic (mm Hg) 2014-01-28 21:52:00 Tom rial [facility] Systolic (mm Hg) 2014-01-28 20:00:00 Tom [facility] Diastolic (mm Hg) 2014-01-28 20:00:00 [facility] Respitory Rate 2014-01-28 20:00:00 [facility] Respitory Rate 2014-01-28 18:00:00 [facility] Diastolic (mm Hg) 2014-01-28 18:00:00 [facility] Systolic (mm Hg) 2014-01-28 18:00:00 [facility] Temperature Oral (F) 2014-01-28 18:00:00 98.1 F [facility] Temperature Oral (F) 2014-01-28 14:00:00 99.1 F [facility] Temperature Oral (F) 2014-01-28 03:05:00 99.4 F [facility] Heart Rate 2014-01-26 18:35:00 [facility] Heart Rate 2014-01-26 14:27:00 [facility] Heart Rate 2014-01-26 09:37:00 [facility] BMI Calculated 2014-01-21 08:15:00 [facility] Weight 2014-01-21 08:15:00 [facility] Height 2014-01-21 08:15:00 175.2 cm [facility] Weight 2014-01-20 23:50:00 [facility] Height 2014-01-20 23:50:00 175.26 cm [facility] BMI Calculated 2014-01-20 23:50:00 [facility] Systolic (mm Hg) 2013-11-03 22:00:00 Tom [facility] Diastolic (mm Hg) 2013-11-03 22:00:00 [facility] Systolic (mm Hg) 2013-11-03 21:00:00 [facility] Diastolic (mm Hg) 2013-11-03 21:00:00 [facility] Systolic (mm Hg) 2013-11-03 20:00:00 Tom [facility] Diastolic (mm Hg) 2013-11-03 20:00:00 [facility] Respitory Rate 2013-11-03 16:00:00 [facility] Respitory Rate 2013-11-03 15:00:00 [facility] Respitory Rate 2013-11-03 14:00:00 [facility] Heart Rate 2013-10-08 15:30:00 [facility] Heart Rate 2013-10-08 15:20:00 [facility] Heart Rate 2013-10-08 15:10:00 [facility] Weight 2013-10-06 11:04:00 [facility] Weight 2013-09-30 10:02:00 [facility] Weight 2013-09-30 03:40:00 [facility] Height 2013-09-30 03:40:00 177.8 cm [facility] BMI Calculated 2013-09-30 03:40:00 [facility] Procedures Procedure Date / Time Performing Source Performed Clinician POCT-GLUCOSE METER 2021-12-[address] [facility] 11:09:00 [facility] POCT-GLUCOSE METER 2021-12-[address] [facility] 06:14:00 [facility] BASIC METABOLIC PANEL 2021-12-[address] [facility] 04:25:[address] [facility] CBC (HEMOGRAM ONLY) 2021-12-[address] [facility] 04:25:[address] [facility] XR CHEST 1 VIEW PORTABLE / 2021-12-[address] [facility] B[facility] 17:32:00 [facility] [place] CTA CHEST FOR PULMONARY 2021-12-13 Adonay Spring [facility] EMBOLUS 16:51:[address] [facility] BASIC METABOLIC PANEL 2021-12-[address] [facility] 16:12:00 [facility] BLOOD GAS, ARTERIAL 2021-12-[address] [facility] 15:34:00 [facility] POCT-GLUCOSE METER 2021-12-[address] [facility] 13:25:00 [facility] TISSUE EXAM 2021-12-[address] [facility] 11:35:00 [facility] REPLACEMENT, INTRATHECAL PUMP 2021-12-[address] [facility] 10:50:00 [facility] POCT-GLUCOSE METER 2021-12-[address] [facility] 09:01:00 [facility] ECG 12-LEAD 2021-11-[address] [facility] 11:48:58 [facility] ECG 12-LEAD 2021-11-30 Unknown, Hl7 Doctor [facility] 11:48:58 [facility] ECG 12-LEAD 2021-11-30 Unknown, Hl7 Doctor [facility] 11:48:58 [facility] URINE CULTURE 2021-11-[address] [facility] 11:43:00 [facility] URINALYSIS W/ REFLEX URINE 2021-11-[address] [facility] CULTURE 11:43:00 [facility] TYPE AND SCREEN, AUTOMATED 2021-11-[address] [facility] 11:43:00 [facility] PT/APTT 2021-11-[address] [facility] 11:42:00 [facility] CBC W/PLT COUNT & AUTO 2021-11-30 Jeannette Alexander [facility] DIFFERENTIAL 11:42:00 [facility] BASIC METABOLIC PANEL 2021-11-[address] [facility] 11:42:00 [facility] CBC W/PLT COUNT & AUTO 2021-11-30 Jeannette Alexander [facility] DIFFERENTIAL 11:42:00 [facility] XR CHEST 2 VIEWS 2021-11-[address] [facility] 11:40:00 [facility] XR ABDOMEN ACUTE SERIES 2021-08-25 Yazan Knight [facility] 13:45:[address] HEAD WO CONTRAST 2021-08-25 Eugene [facility] [place] 13:33:45 [facility] LIPASE [facility] 13:[facility] COMP. METABOLIC PANEL (99276) 2021-08-[address] [facility] 13:29:00 Medical Branch CBC WITH DIFF 2021-08-25 Eugene [facility] xa 13:29:00 [facility] URINALYSIS 2021-08-25 Eugene [facility] 13:29:00 [facility] AC PANEL 21 + LACTIC ACID [facility]-08-25 [facility] 13:29[facility]00 [facility] POCT GLUCOSE (AUTOMATED) 2021-08-22 [facility] 18:05:00 [facility] POCT GLUCOSE (AUTOMATED) 2021-08-22 [facility] 13:41:00 [facility] POCT GLUCOSE (AUTOMATED) 2021-08-22 [facility] 01:12:00 Medical Branch POCT GLUCOSE (AUTOMATED) 2021-08-21 [facility] 22:39:00 Medical Branch POCT GLUCOSE (AUTOMATED) 2021-08-21 [facility] 18:08:00 Medical Branch POCT GLUCOSE (AUTOMATED) 2021-08-21 [facility] 15:08:00 Medical Branch BASIC METABOLIC PANEL (NA, K, 2021-08-21 Le, [facility]elle [facility], CO2, GLUCOSE, BUN, 09:38:00 [facility] ranch CREATININE, [place]) CBC WITH DIFF 2021-08-21 Janelle Rubio [facility] [place] 09:38:00 Medical Branch N-TERMINAL PRO-BNP 2021-08-21 [facility] 09:38:00 Medical Branch POCT GLUCOSE (AUTOMATED) 2021-08-21 [facility] 01:56:00 [facility] XR CHEST 1 VW 2021-08-20 [facility] 23:43:07 Medical Branch POCT GLUCOSE (AUTOMATED) 2021-08-20 [facility] 22:08:00 [facility] POCT GLUCOSE (AUTOMATED) 2021-08-20 [facility] 19:02:00 [facility] POCT GLUCOSE (AUTOMATED) 2021-08-20 [facility] 13:37:00 [facility] POCT GLUCOSE (AUTOMATED) 2021-08-20 [facility] 01:42:00 [facility] POCT GLUCOSE (AUTOMATED) 2021-08-19 [facility] 21:55:00 [facility] POCT GLUCOSE (AUTOMATED) 2021-08-19 [facility] 17:30:00 [facility] POCT GLUCOSE (AUTOMATED) 2021-08-19 [facility] 14:21:00 [facility] Branch BASIC METABOLIC PANEL (NA, K, 2021-08-19 Saritha Larson [facility] CL, CO2, GLUCOSE, BUN, 09:33:00 [facility] CREATININE, CA) CBC WITH DIFF 2021-08-19 Saritha [facility] 09:33:00 Medical Branch POCT GLUCOSE (AUTOMATED) 2021-08-19 [facility] 03:53:00 Medical Branch SPUTUM CULTURE 2021-08-19 [facility] 02:47:00 Medical Branch POCT GLUCOSE (AUTOMATED) 2021-08-19 [facility] 01:04:00 [facility] POCT GLUCOSE (AUTOMATED) 2021-08-18 [facility] 22:22[facility]00 [facility] COVID-19 (MOLECULAR TESTING 2021-08-18 [facility]) 16:20:00 [facility] Branch LAB ONLY COVID INTERPRETATION 2021-08-18 Enrrique [facility] 16:20:00 [facility] POCT GLUCOSE (AUTOMATED) 2021-08-18 [facility] 13:35:00 [facility] CT ANGIOGRAM CHEST 2021-08-18 [facility] 05:44:51 [facility] POCT GLUCOSE (AUTOMATED) 2021-08-17 [facility] 22:14[facility]00 [facility] POCT GLUCOSE (AUTOMATED) 2021-08-17 [facility] 16:33:00 [facility] POCT GLUCOSE (AUTOMATED) 2021-08-17 [facility] 12:18:00 [facility] BASIC METABOLIC PANEL (NA, K, 2021-08-17 Prema Rooney [facility] CL, CO2, GLUCOSE, BUN, 10:15:00 [facility] ran CREATININE, [place]) CBC WITH DIFF 2021-08-17 Prema Rooney [facility] [place] 10:15:00 [facility] POCT GLUCOSE (AUTOMATED) 2021-08-17 [facility] 02:11:00 [facility] POCT GLUCOSE (AUTOMATED) 2021-08-16 [facility] 21:42:00 [facility] LEGIONELLA URINARY ANTIGEN 2021-08-16 Noy Choi [facility] TST 20:10:00 [facility] MRSA / MSSA SCREEN BY PCR, 2021-08-16 Noy Choi [facility] NARES 20:10:00 [facility] URINALYSIS 2021-08-16 [facility] 20:07:00 [facility] RESPIRATORY PANEL BY PCR 2021-08-16 Noy Choi [facility] 20:07:00 [facility] POCT GLUCOSE (AUTOMATED) 2021-08-16 Deepika Castro [facility] 16:51:00 Medical Branch POCT GLUCOSE (AUTOMATED) 2021-08-16 Deepika Castro [facility] 12:38:00 Medical Branch POCT GLUCOSE (AUTOMATED) 2021-08-16 Deepika Castro [facility] 01:25:00 Medical Branch POCT GLUCOSE (AUTOMATED) 2021-08-15 Deepika Castro [facility] 21:57:00 Medical Branch POCT GLUCOSE (AUTOMATED) 2021-08-15 Deepika Castro [facility] 16:31:00 Medical Branch POCT GLUCOSE (AUTOMATED) 2021-08-15 Deepika Castro [facility] 12:36:00 Medical Branch MAGNESIUM 2021-08-15 [facility] xa 10:36:00 Medical Branch BASIC METABOLIC PANEL (NA, K, 2021-08-15 [facility] CL, CO2, GLUCOSE, BUN, 10:36:00 Medical B ran CREATININE, CA) CBC WITHOUT DIFF 2021-08-15 [facility] 10:36:00 [facility] Branch PROCALCITONIN 2021-08-15 [facility] 10:36:00 [facility] Branch POCT GLUCOSE (AUTOMATED) 2021-08-15 Deepika Castro [facility] 02:12:00 Medical Branch SPUTUM CULTURE 2021-08-14 [facility] 22:32:00 [facility] Branch POCT GLUCOSE (AUTOMATED) 2021-08-14 Deepika Castro [facility] 21:27:00 Medical Branch AC PANEL 20 + LACTIC ACID 2021-08-14 Amber Benitez [facility] 20:22:00 Medical Branch CBC WITH DIFF 2021-08-14 [facility] 09:48:00 [facility] Branch POCT GLUCOSE (AUTOMATED) 2021-08-14 Deepika Castro [facility] 05:19:00 Medical Branch POCT GLUCOSE (AUTOMATED) 2021-08-14 Deepika Castro [facility] 02:32:00 Medical Branch POCT GLUCOSE (AUTOMATED) 2021-08-13 Deepika Castro [facility] 20:23:00 Medical Branch POCT GLUCOSE (AUTOMATED) 2021-08-13 Deepika Castro [facility] 16:36:00 Medical Branch XR CHEST 1 VW 2021-08-13 Ebenezer Cabrera [facility] 11:31:30 Medical Branch EKG-12 LEAD 2021-08-13 Doctor Unassflaco, [facility] 11:23:05 [place] [facility] BLOOD CULTURE SCREEN 2021-08-13 Ebenezer Cabrera [facility] 11:20:00 Medical Branch COMP. METABOLIC PANEL ([id number]) 2021-08-13 Ebenezer Cabrera [facility] 11:20:00 Medical Branch CBC WITH DIFF 2021-08-13 Ebenezer Cabrera [facility] 11:20:00 Medical Branch GLYCOSYLATED HEMOGLOBIN (A1C) 2021-08-[address] [facility] 11:20:00 [facility] RAPID INFLUENZA A/B 2021-08-13 Ebenezer Cabrera [facility] 11:20:00 Medical Branch COVID-19 (ID NOW RAPID 2021-08-13 Ebenezer Cabrera [facility] TESTING) 11:20:00 Medical Branch LAB ONLY COVID INTERPRETATION 2021-08-13 Ebenezer Cabrera [facility] 11:20:00 Medical Branch EMERGENCY DEPARTMENT 2021-08-13 Doctor Unaivone, [facility] DOCUMENTS 05:01:00 [place] [facility] HOSPITAL ADMISSION 2021-08-13 Doctor Unassigned, [facility] 05:01:00 [place] [facility] CT CERVICAL SPINE WO CONTRAST 2021-07-[address] [facility] 17:16:[address] [place] [address] HEAD WO CONTRAST 2021-07-26 Singer [facility] 17:16:00 Medical Branch XR CHEST 1 VW 2021-07-26 Singer [facility] [place] 16:42:27 Medical Branch XR FOREARM 2 VW LEFT 2021-07-26 [facility] 16:42:27 Medical Branch XR PELVIS <3 VW 2021-07-26 [facility] 16:42:27 Medical Branch XR SHOULDER <2 VW LEFT 2021-07-26 [facility] 16:42:27 Medical Branch XR PELVIS <3 VW 2021-07-14 [facility] 01:07[facility]42 Medical Branch XR SHOULDER 2+ VW RIGHT 2021-07-14 GreerElaina gonzalez [facility] 01:07:42 Medical Branch URINALYSIS 2021-06-08 [facility] 18:31:00 [facility] URINE DRUG (IMMUNOASSAY) - 2021-06-08 Eugene Yazan [facility] COMPREHENSIVE DRUG SCREEN W/O 18:31:00 Fl [address]ical [address] REFLEX CT HEAD WO CONTRAST 2021-06-08 Eugene Y[facility]an [facility] 17:06:54 Medical Branch XR CHEST 1 VW 2021-06-08 Eugene [facility] xa 17:03:00 [facility] AC PANEL 20 + LACTIC ACID 2021-06-08 Yazan Knight [facility] 16:33:00 Medical Branch COVID-19 (ID NOW RAPID [facility]-06-08 [facility] 16:33:00 Medical Branch TROPONIN I 2021-06-08 [facility] 16:24:00 [facility] COMP. METABOLIC PANEL ([id number]) 2021-06-08 [facility] 16:24:00 [facility] ETHANOL 2021-06-08 [facility] 16:24:00 [facility] PROTHROMBIN TIME / INR 2021-06-08 [facility] 16:24:00 [facility] ACTIVATED PARTIAL THRMPLAS 2021-06-08 Eugene Yazan [facility] TERESA 16:24:00 [facility] N-TERMINAL PRO-BNP 2021-06-08 Eugene [facility] 16:24:00 Medical Branch CBC WITH DIFF 2021-06-08 Eugene [facility] 16:23:[address] HEAD WO CONTRAST 2021-06-07 Eugene [facility] [place] 15:37:56 Medical Branch XR KNEE 3 VW LEFT 2021-06-07 Hannacroix [facility] 15:19:28 Medical Branch XR HIPS 2 VW LEFT 2021-06-07 Knight [facility] 15:04:08 Medical Branch XR KUB 2021-06-07 Eugene [facility] [place] 15:00:21 Medical Branch XR RIBS 4+ VW LEFT 2021-06-07 Eugene [facility] 14:54:58 Medical Branch XR CHEST 1 VW 2021-06-07 Eugene [facility] [place] 14:40:39 Medical Branch Chemodenervation of one 2020-03-16 [facility] extremity; 5 or more muscles 20:19:00 Chemodenervation of one 2019-12-17 [facility] extremity; each additional 18:01:00 extremity, 1-4 muscle(s) (List separately in addition to code for primary procedure) DME/SUPPLY JUSTIFICATION 2019-09-08 Doctor Unassigned, [facility] 05:01:00 [place] [facility] Electronic analysis of 2019-08-26 [facility] programmable, implanted pump 15:42:00 for intrathecal or epidural drug infusion (includes evaluation of reservoir status, alarm status, drug prescription status); with reprogramming and refill (requiring skill of a physician or other qualifi EXTERNAL PROVIDER - [facility] 2019-07-03 Doctor Unassigned, [facility] REFERRAL 05:01:00 [place] [facility] DME/SUPPLY JUSTIFICATION 2019-05-28 [facility] [facility], [facility] 05:01:00 [facility] SLEEP STUDY DATA REPORT 2019-05-20 Doctor Unassflaco, [facility] 06:01:00 [facility] SLEEP STUDY DATA REPORT 2019-04-19 Doctor Unassigned, [facility] 06:01:[address] [facility] [address] HEAD WO CONTRAST 2019-04-08 Mary Fleming [facility] 20:29:23 Medical Branch ADC,CLC OR LCC ONLY - 2019-04-08 Mary Fleming [facility] INFLUENZA A & B DIRECT 19:57:00 Medical [facility] ANTIGEN ASSIGNMENT OF BENEFITS 2019-04-01 Doctor Ryan, [facility] 16:37:44 [facility] AUTHORIZATION FOR RELEASE OF 2018-10-21 Doctor Unassigned, [facility] PHI 05:01:00 [facility] Lengthening of Achilles 2015-11-03 Ele[facility] tendon<sup>1</sup> 05:00:00 Intrathecal 2015-09-16 [facility] injection<sup>2</sup> 05:00:00 Selective catheter placement, 2015-08-02 Fl morial [facility] vertebral artery, unilateral, 13:00:00 with angiography of the ipsilateral vertebral circulation and all associated radiological supervision and interpretation, includes angiography of the cervicocerebral arch, when performed Gamma-knife surgery 2015-08-02 [facility] 05:00:00 Angiogram 2015-06-05 [facility] 05:00:00 Ventriculoperitoneal shunt 2014-01-26 [facility] 06:00:00 Cranioplasty 2014-01-21 [facility] 06:00:00 Trachea implantation 2013-10-17 [facility] 05:00:00 Craniectomy 2013-10-08 [facility] 05:00:00 PEG - Percutaneous endoscopic 2013-10-05 Fl [facility] gastrostomy 05:00:00 Chemodenervation<sup>1</sup> Mem orial [facility] Shunt of cerebral ventricle Tom rial [facility] to extracranial site Plan of Care Planned Activity Planned Date Details Comments Source Future Scheduled 2022-12-[address] [facility] 00:00:00 Counseling and Screening [facility] (12+) [code = Tobacco Cessation Counseling and Screening (12+)] Future Scheduled 2022-12-[address] [facility] 00:00:00 Counseling and Screening [facility] (12+) [code = Tobacco Cessation Counseling and Screening (12+)] Future Scheduled 2022-12-[address] [facility] 00:00:00 Counseling and Screening [facility] (12+) [code = Tobacco Cessation Counseling and Screening (12+)] Future Scheduled 2022-12-[address] [facility] 00:00:00 Counseling and Screening [facility] (12+) [code = Tobacco Cessation Counseling and Screening (12+)] Future Scheduled 2022-12-[address] [facility] 00:00:00 Counseling and Screening Med [facility] (12+) [code = Tobacco Cessation Counseling [...] Cessation Counseling and Screening (12+)] Future Scheduled 2022-11-17 INFLUENZA VACCINE (Season [facility] 00:00:00 Ended) [code = INFLUENZA Med ical Center VACCINE (Season Ended)] Future Scheduled 2022-11-17 INFLUENZA VACCINE (Season [facility] 00:00:00 Ended) [code = INFLUENZA Med ical Center VACCINE (Season Ended)] Future Scheduled 2022-11-17 INFLUENZA VACCINE (Season [facility] 00:00:00 Ended) [code = INFLUENZA Med ical Center VACCINE (Season Ended)] Future Scheduled 2022-11-17 INFLUENZA VACCINE (Season [facility] 00:00:00 Ended) [code = INFLUENZA Med ical Center VACCINE (Season Ended)] Future Scheduled 2022-11-17 INFLUENZA VACCINE (Season [facility] 00:00:00 Ended) [code = INFLUENZA Med ical Center VACCINE (Season Ended)] Future Scheduled 2022-11-17 Influenza Vaccine (Season [facility] 00:00:00 Ended) [code = Influenza Med ical Center Vaccine (Season Ended)] Future Scheduled 2022-11-17 Influenza Vaccine (#1) [facility]00 [code = Influenza Vaccine Me dical Center (#1)] Future Scheduled 2022-11-17 Influenza Vaccine (#1) [facility] 00:00:00 [code = Influenza Vaccine Me dical Center (#1)] Future Scheduled 2022-11-17 Influenza Vaccine (#1) [facility] 00:00:00 [code = Influenza Vaccine Me dical Center (#1)] Future Scheduled 2022-11-17 Influenza Vaccine (#1) [facility] 00:00:00 [code = Influenza Vaccine Me dical Center (#1)] Future Scheduled 2022-11-17 Influenza Vaccine (#1) [facility] 00:00:00 [code = Influenza Vaccine Me dical Center (#1)] Future Scheduled 2022-08-18 MEDICARE ANNUAL WELLNESS [facility] 00:00:00 (YEAR 2 or FIRST YEAR if Med ical Center no IPPE) [code = MEDICARE ANNUAL WELLNESS (YEAR 2 or FIRST YEAR if no IPPE)] Future Scheduled 2022-08-18 MEDICARE ANNUAL WELLNESS [facility] 00:00:00 (YEAR 2 or FIRST YEAR if Med ical Center no IPPE) [code = MEDICARE ANNUAL WELLNESS (YEAR 2 or FIRST YEAR if no IPPE)] Future Scheduled 2022-08-18 MEDICARE ANNUAL WELLNESS [facility] 00:00:00 (YEAR 2 or FIRST YEAR if Med ical Center no IPPE) [code = MEDICARE ANNUAL WELLNESS (YEAR 2 or FIRST YEAR if no IPPE)] Future Scheduled 2022-08-18 MEDICARE ANNUAL WELLNESS [facility] 00:00:00 (YEAR 2 or FIRST YEAR if Med ical Center no IPPE) [code = MEDICARE ANNUAL WELLNESS (YEAR 2 or FIRST YEAR if no IPPE)] Future Scheduled 2022-08-18 MEDICARE ANNUAL WELLNESS [facility] 00:00:00 (YEAR 2 or FIRST YEAR if Med ical Center no IPPE) [code = MEDICARE ANNUAL WELLNESS (YEAR 2 or FIRST YEAR if no IPPE)] Future Scheduled 2022-08-18 MEDICARE ANNUAL WELLNESS [facility] 00:00:00 (YEAR 2 or FIRST YEAR if Med ical Center no IPPE) [code = MEDICARE ANNUAL WELLNESS (YEAR 2 or FIRST YEAR if no IPPE)] Future Scheduled 2022 SHINGLES VACCINES ([address] [facility] 00:00:00 2) [code = SHINGLES Medical Center VACCINES (1 of 2)] Future Scheduled 2022 SHINGLES VACCINES ([address] [facility] 00:00:00 2) [code = SHINGLES Medical Center VACCINES (1 of 2)] Future Scheduled 2022 SHINGLES VACCINES ([address] [facility] 00:00:00 2) [code = SHINGLES Medical Center VACCINES (1 of 2)] Future Scheduled 2022 SHINGLES VACCINES ([address] [facility] 00:00:00 2) [code = SHINGLES Medical Center VACCINES (1 of 2)] Future Scheduled 2022 SHINGLES VACCINES ([address] [facility] 00:00:00 2) [code = SHINGLES Medical Center VACCINES (1 of 2)] Future Scheduled 2022 SHINGLES VACCINES ([address] [facility] 00:00:00 2) [code = SHINGLES Medical Center VACCINES (1 of 2)] Future Scheduled 2022 SHINGLES VACCINES ([address] [facility] 00:00:00 2) [code = SHINGLES Medical Center VACCINES (1 of 2)] Future Scheduled 2022 SHINGLES VACCINES ([address] [facility] 00:00:00 2) [code = SHINGLES Medical Center VACCINES (1 of 2)] Future Scheduled 2022 SHINGLES VACCINES ([address] [facility] 00:00:00 2) [code = SHINGLES Medical Center VACCINES (1 of 2)] Future Scheduled 2022 SHINGLES VACCINES ([address] [facility] 00:00:00 2) [code = SHINGLES Medical Center VACCINES (1 of 2)] Future Scheduled 2022 SHINGLES VACCINES ([address] [facility] 00:00:00 2) [code = SHINGLES Medical Center VACCINES (1 of 2)] Future Scheduled 2021-11-17 INFLUENZA VACCINE (#1) C [...] [facility] 00:00:00 [code = [id number]] Medical Ce nter Future Scheduled 2021-08-09 Lipid panel (procedure) [facility] 00:00:00 [code = [id number]] Medical Ce nter Future Scheduled 2021-08-09 Lipid panel (procedure) [facility] 00:00:00 [code = [id number]] Medical Ce nter Future Scheduled 2021-08-09 Lipid panel (procedure) [facility] 00:00:00 [code = [id number]] Medical Ce nter Future Scheduled 2021-08-09 Lipid panel (procedure) [facility] 00:00:00 [code = [id number]] Medical Ce nter Future Scheduled 2021-08-09 Lipid panel (procedure) [facility] 00:00:00 [code = 78184083] Medical Ce nter Future Scheduled 2021-08-09 Lipid panel (procedure) [facility] 00:00:00 [code = [id number]] Medical Ce nter Future Scheduled 2021-08-09 Lipid panel (procedure) [facility] 00:00:00 [code = 48042405] Medical Ce nter Future Scheduled 2021-08-09 Lipid panel (procedure) [facility] 00:00:00 [code = 11242038] Medical Ce nter Future Scheduled 2021-08-09 Lipid panel (procedure) [facility] 00:00:00 [code = [id number]] Medical Ce nter Future Scheduled 2021-08-09 Lipid panel (procedure) [facility] 00:00:00 [code = 35585230] Medical Ce nter Future Scheduled 2021-08-09 Lipid panel (procedure) [facility] 00:00:00 [code = 59807630] Medical Ce nter Future Scheduled 2021-08-09 Lipid panel (procedure) [facility] 00:00:00 [code = 04533348] Medical Ce nter Future Scheduled 2021-08-09 Lipid panel (procedure) [facility] 00:00:00 [code = 59388854] Medical Ce nter Future Scheduled 2021-08-09 Lipid panel (procedure) [facility] 00:00:00 [code = 42168038] Medical Ce nter Future Scheduled 2021-08-09 Lipid panel (procedure) [facility] 00:00:00 [code = 56246160] Medical Ce nter Future Scheduled 2021-08-09 Lipid panel (procedure) [facility] 00:00:00 [code = 47185051] Medical Ce nter Future Scheduled 2021-08-09 Lipid panel (procedure) [facility] 00:00:00 [code = 62494929] Medical Ce nter Future Scheduled 2021-08-09 Lipid panel (procedure) [facility] 00:00:00 [code = 61367917] Medical Ce nter Future Scheduled 2021-08-09 Lipid panel (procedure) [facility] 00:00:00 [code = 40559816] Medical Ce nter Future Scheduled 2019-02-[address] [facility] 00:[facility]:00 measurement (procedure) [facility] [code = 59850147] Future Scheduled 2019-02-[address] [facility] 00:00:00 measurement (procedure) [facility] [code = 29845973] Future Scheduled 2019-02-[address] [facility] 00:00:00 measurement (procedure) [facility] [code = 25852449] Future Scheduled 2019-02-[address] [facility] 00:00:00 measurement (procedure) [facility] [code = 12181766] Future Scheduled 2019-02-[address] [facility] 00:00:00 measurement (procedure) [facility] [code = 32453982] Future Scheduled 2019-02-[address] [facility] 00:00:00 measurement (procedure) [facility] [code = 35455078] Future Scheduled 2019-02-[address] [facility] 00:00:00 measurement (procedure) [facility] [code = 99954459] Future Scheduled 2019-02-[address] [facility] 00:00:00 measurement (procedure) [facility] [code = 40390724] Future Scheduled 2019-02-[address] [facility] 00:00:00 measurement (procedure) [facility] [code = 11488796] Future Scheduled 2019-02-[address] [facility] 00:00:00 measurement (procedure) [facility] [code = 33149084] Future Scheduled 2019-02-[address] [facility] 00:00:00 measurement (procedure) [facility] [code = 07041991] Future Scheduled 2019-02-[address] [facility] 00:00:00 measurement (procedure) [facility] [code = 81787287] Future Scheduled 2019-02-[address] [facility] 00:00:00 measurement (procedure) [facility] [code = 76733763] Future Scheduled 2019-02-[address] [facility] 00:00:00 measurement (procedure) [facility] [code = 89998204] Future Scheduled 2019-02-[address] [facility] 00:00:00 measurement (procedure) [facility] [code = 45285980] Future Scheduled 2019-02-[address] [facility] 00:00:00 measurement (procedure) [facility] [code = 20265720] Future Scheduled 2019-02-[address] [facility] 00:00:00 measurement (procedure) [facility] [code = 95061471] Future Scheduled 2019-02-[address] [facility] 00:00:00 measurement (procedure) [facility] [code = 01651562] Future Scheduled 2019-02-[address] [facility] 00:00:00 measurement (procedure) [facility] [code = 39912021] Future Scheduled 2019-02-[address] [facility] 00:00:00 measurement (procedure) [facility] [code = 74359429] Future Scheduled 2018-11-01 PNEUMOCOCCAL VACCINE 0-64 [facility] [...] 0-64 YRS (2 - PCV)] Future Scheduled 2017-03-[address] MED[address] ANNUAL WELLNESS [facility] 00:00:00 (YEAR 2 or FIRST YEAR if Med ical Center no IPPE) [code = MEDICARE ANNUAL WELLNESS (YEAR 2 or FIRST YEAR if no IPPE)] Future Scheduled 2017-03-[address] MED[address] ANNUAL WELLNESS [facility] 00:00:00 (YEAR 2 or FIRST YEAR if Med ical Center no IPPE) [code = MEDICARE ANNUAL WELLNESS (YEAR 2 or FIRST YEAR if no IPPE)] Future Scheduled 2017-03-[address] MED[address] ANNUAL WELLNESS [facility] 00:00:00 (YEAR 2 or FIRST YEAR if Med ical Center no IPPE) [code = MEDICARE ANNUAL WELLNESS (YEAR 2 or FIRST YEAR if no IPPE)] Future Scheduled 2017-03-[address] MED[address] ANNUAL WELLNESS [facility] 00:00:00 (YEAR 2 or FIRST YEAR if Med ical Center no IPPE) [code = MEDICARE ANNUAL WELLNESS (YEAR 2 or FIRST YEAR if no IPPE)] Future Scheduled 2017-03-[address] ANNUAL WELLNESS [facility] 00:00:00 (YEAR 2 or FIRST YEAR if Med ical Center no IPPE) [code = MEDICARE ANNUAL WELLNESS (YEAR 2 or FIRST YEAR if no IPPE)] Future Scheduled 1991-06-21 DTAP/TDAP/TD VACCINES (1 [facility] [...] HEPATITIS C Medical Center SCREENING] Future Scheduled 1987-06-[address] [facility] 00:[facility]:00 virus screening Medical Cent er (procedure) [code = 718208608] Future Scheduled 1987-06-[address] [facility] 00:00:00 virus screening Medical Cent er (procedure) [code = 571614829] Future Scheduled 1987-06-[address] [facility] 00:00:00 virus screening Medical Cent er (procedure) [code = 319305468] Future Scheduled 1987-06-[address] [facility] 00:00:00 virus screening Medical Cent er (procedure) [code = 354953479] Future Scheduled 1987-06-[address] [facility] 00:00:00 virus screening Medical Cent er (procedure) [code = 240160745] Future Scheduled 1982 DIABETIC EYE EXAM [code = [facility] 00:00:00 DIABETIC EYE EXAM] Medical C enter Future Scheduled 1982 Diabetic foot examination [facility] 00:00:00 (regime/therapy) [code = Med ical Center 646907298] Future Scheduled 1982 Urine screening for [facility] 00:00:00 protein (procedure) [code Me dical Center = 526232959] Future Scheduled 1982 DIABETIC EYE EXAM [code = [facility] 00:00:00 DIABETIC EYE EXAM] Medical C enter Future Scheduled 1982 Diabetic foot examination [facility] 00:00:00 (regime/therapy) [code = Med ical Center 126356354] Future Scheduled 1982 Urine screening for [facility] 00:00:00 protein (procedure) [code Me dical Center = 723712074] Future Scheduled 1982 DIABETIC EYE EXAM [code = [facility] 00:00:00 DIABETIC EYE EXAM] Medical C enter Future Scheduled 1982 Diabetic foot examination [facility] 00:00:00 (regime/therapy) [code = Med ical Center 706392348] Future Scheduled 1982 Urine screening for [facility] 00:00:00 protein (procedure) [code Me dical Center = 586511860] Future Scheduled 1982 DIABETIC EYE EXAM [code = [facility] 00:00:00 DIABETIC EYE EXAM] Medical C enter Future Scheduled 1982 Diabetic foot examination [facility] 00:00:00 (regime/therapy) [code = Med ical Center 992172350] Future Scheduled 1982 Urine screening for [facility] 00:00:00 protein (procedure) [code Me dical Center = 939415488] Future Scheduled 1982 DIABETIC EYE EXAM [code = [facility] 00:00:00 DIABETIC EYE EXAM] Medical C enter Future Scheduled 1982 Diabetic foot examination [facility] 00:00:00 (regime/therapy) [code = [facility] 998701420] Future Scheduled 1982 Urine screening for [facility] 00:00:00 protein (procedure) [code [facility] = 047926719] Future Scheduled 1982 DIABETIC EYE EXAM [code = [facility] 00:00:00 DIABETIC EYE EXAM] Medical C enter Future Scheduled 1982 Diabetic foot examination [facility] 00:00:00 (regime/therapy) [code = [facility] 102857241] Future Scheduled 1982 Urine screening for [facility] 00:00:00 protein (procedure) [code [facility] = 892848492] Future Scheduled 1982 DIABETIC EYE EXAM [code = [facility] 00:00:00 DIABETIC EYE EXAM] Medical C enter Future Scheduled 1982 Diabetic foot examination [facility] 00:00:00 (regime/therapy) [code = [facility] 250581236] Future Scheduled 1982 Urine screening for [facility] 00:00:00 protein (procedure) [code [facility] = 662702052] Future Scheduled 1982 DIABETIC EYE EXAM [code = [facility] 00:00:00 DIABETIC EYE EXAM] Medical C enter Future Scheduled 1982 Diabetic foot examination [facility] 00:00:00 (regime/therapy) [code = [facility] 030394545] Future Scheduled 1982 Urine screening for [facility] 00:00:00 protein (procedure) [code [facility] = 351532328] Future Scheduled 1982 DIABETIC EYE EXAM [code = [facility] 00:00:00 DIABETIC EYE EXAM] Medical C enter Future Scheduled 1982 Diabetic foot examination [facility] 00:00:00 (regime/therapy) [code = [facility] 013595097] Future Scheduled 1982 Urine screening for [facility] 00:00:00 protein (procedure) [code [facility] = 249059355] Future Scheduled 1982 DIABETIC EYE EXAM [code = [facility] 00:00:00 DIABETIC EYE EXAM] Medical C enter Future Scheduled 1982 Diabetic foot examination [facility] 00:00:00 (regime/therapy) [code = [facility] 055792705] Future Scheduled 1982 Urine screening for [facility] 00:00:00 protein (procedure) [code [facility] = 312594866] Future Scheduled 1982 DIABETIC EYE EXAM [code = [facility] 00:00:00 DIABETIC EYE EXAM] Medical C enter Future Scheduled 1982 Diabetic foot examination [facility] 00:00:00 (regime/therapy) [code = [facility] 157005993] Future Scheduled 1982 Urine screening for [facility] 00:00:00 protein (procedure) [code [facility] = 911754195] Future Scheduled 1982 DIABETIC EYE EXAM [code = [facility] 00:00:00 DIABETIC EYE EXAM] Medical C enter Future Scheduled 1982 Diabetic foot examination [facility] 00:00:00 (regime/therapy) [code = [facility] 998810525] Future Scheduled 1982 Urine screening for [facility] 00:00:00 protein (procedure) [code [facility] = 706029497] Future Scheduled 1982 DIABETIC EYE EXAM [code = [facility] 00:00:00 DIABETIC EYE EXAM] Medical C enter Future Scheduled 1982 Diabetic foot examination [facility] 00:00:00 (regime/therapy) [code = [facility] 127395212] Future Scheduled 1982 Urine screening for [facility] 00:00:00 protein (procedure) [code [facility] = 541995365] Future Scheduled 1982 DIABETIC EYE EXAM [code = [facility] 00:00:00 DIABETIC EYE EXAM] Medical C enter Future Scheduled 1982 Diabetic foot examination [facility] 00:00:00 (regime/therapy) [code = [facility] 320131617] Future Scheduled 1982 Urine screening for [facility] 00:00:00 protein (procedure) [code Me dical Center = 601667194] Future Scheduled 1982 DIABETIC EYE EXAM [code = [facility] 00:00:00 DIABETIC EYE EXAM] Medical C enter Future Scheduled 1982 Diabetic foot examination [facility] 00:00:00 (regime/therapy) [code = [facility] 324301396] Future Scheduled 1982 Urine screening for [facility] 00:00:00 protein (procedure) [code Fl [facility]ical Center = 576745053] Future Scheduled 1982 DIABETIC EYE EXAM [code = [facility] 00:00:00 DIABETIC EYE EXAM] Medical C enter Future Scheduled 1982 Diabetic foot examination [facility] 00:00:00 (regime/therapy) [code = [facility] 114244236] Future Scheduled 1982 Urine screening for [facility] 00:00:00 protein (procedure) [code [facility] = 864625220] Future Scheduled 1982 DIABETIC EYE EXAM [code = [facility] 00:00:00 DIABETIC EYE EXAM] Medical C enter Future Scheduled 1982 Diabetic foot examination [facility] 00:00:00 (regime/therapy) [code = [facility] 259470060] Future Scheduled 1982 Urine screening for [facility] 00:00:00 protein (procedure) [code Fl dical Center = 217036521] Future Scheduled 1982 DIABETIC EYE EXAM [code = [facility] 00:00:00 DIABETIC EYE EXAM] Medical C enter Future Scheduled 1982 Diabetic foot examination [facility] 00:00:00 (regime/therapy) [code = [facility] 946261350] Future Scheduled 1982 Urine screening for [facility] 00:00:00 protein (procedure) [code Fl dical Center = 469539310] Future Scheduled 1982 DIABETIC EYE EXAM [code = [facility] 00:00:00 DIABETIC EYE EXAM] Medical C enter Future Scheduled 1982 Diabetic foot examination [facility] 00:00:00 (regime/therapy) [code = [facility] 542175662] Future Scheduled 1982 Urine screening for [facility] 00:00:00 protein (procedure) [code Fl dical Center = 487035806] Future Scheduled 1982 DIABETIC EYE EXAM [code = [facility] 00:00:00 DIABETIC EYE EXAM] Medical C enter Future Scheduled 1982 Diabetic foot examination [facility] 00:00:00 (regime/therapy) [code = Med ical Center 762513319] Future Scheduled 1982 Urine screening for [facility] 00:00:00 protein (procedure) [code Fl dical Center = 999549174] Future Scheduled 1972 COVID-19 VACCINE (#1) CH [...] Med ical Center (#1)] Future Scheduled 1972 Screening for malignant [facility] 00:00:00 neoplasm of colon Medical Ce nter (procedure) [code = 791646839] Future Scheduled 1972 Sigmoidoscopy [code [facility] S[facility]oscopy] Medical Cente r Future Scheduled 1972 CT Colonography (combo) [facility] 00:00:00 [code = CT Colonography [facility] (combo)] Future Scheduled 1972 Screening for malignant [facility] 00:00:00 neoplasm of colon Medical Ce nter (procedure) [code = 769941173] Future Scheduled 1972 Screening for malignant [facility] 00:00:00 neoplasm of colon Medical Ce nter (procedure) [code = 732064024] Future Scheduled 1972 Screening for malignant [facility] 00:00:00 neoplasm of colon Medical Ce nter (procedure) [code = 229901708] Future Scheduled 1972 Screening for malignant [facility] 00:00:00 neoplasm of colon Medical Ce nter (procedure) [code = 516349733] Future Scheduled 1972 Sigmoidoscopy [code [facility] Sigmoidoscopy] Medical Cente r Future Scheduled 1972 CT Colonography (combo) [facility] 00:00:00 [code = CT Colonography [facility] (combo)] Future Scheduled 1972 Screening for malignant [facility] 00:00:00 neoplasm of colon Medical Ce nter (procedure) [code = 455713262] Future Scheduled 1972 Screening for malignant [facility] 00:00:00 neoplasm of colon Medical Ce nter (procedure) [code = 077619377] Future Scheduled 1972 Screening for malignant [facility] 00:00:00 neoplasm of colon Medical Ce nter (procedure) [code = 653339573] Future Scheduled 1972 Screening for malignant [facility] 00:00:00 neoplasm of colon Medical Ce nter (procedure) [code = 116349119] Future Scheduled 1972 Sigmoidoscopy [code = [facility] Sigmoidoscopy] Medical Hallee r Future Scheduled 1972 CT Colonography (combo) [facility] 00:00:00 [code = CT Colonography [facility] (combo)] Future Scheduled 1972 Screening for malignant [facility] 00:00:00 neoplasm of colon Medical Ce nter (procedure) [code = 378848273] Future Scheduled 1972 Screening for malignant [facility] 00:00:00 neoplasm of colon Medical Ce nter (procedure) [code = 499116051] Future Scheduled 1972 Screening for malignant [facility] 00:00:00 neoplasm of colon Medical Ce nter (procedure) [code = 652641657] Future Scheduled 1972 Screening for malignant [facility] 00:00:00 neoplasm of colon Medical Ce nter (procedure) [code = 956909968] Future Scheduled 1972 Sigmoidoscopy [code = [facility] Sigmoidoscopy] Medical Hallee r Future Scheduled 1972 CT Colonography (combo) [facility] 00:00:00 [code = CT [facility] ([facility] Future Scheduled 1972 Screening for malignant [facility] 00:00:00 neoplasm of colon Medical Ce nter (procedure) [code = 141872171] Future Scheduled 1972 Screening for malignant [facility] 00:00:00 neoplasm of colon Medical Ce nter (procedure) [code = 581640522] Future Scheduled 1972 Screening for malignant [facility] 00:00:00 neoplasm of colon Medical Ce nter (procedure) [code = 285357532] Future Scheduled 1972 Screening for malignant [facility] 00:00:00 neoplasm of colon Medical Ce nter (procedure) [code = 684002632] Future Scheduled 1972 Sigmoidoscopy [code = [facility] Sigmoidoscopy] Medical Hallee r Future Scheduled 1972 CT Colonography (combo) [facility] 00:00:00 [code = CT [facility])] Future Scheduled 1972 Screening for malignant [facility] 00:00:00 neoplasm of colon Medical Ce nter (procedure) [code = 762515457] Future Scheduled 1972 Screening for malignant [facility] 00:00:00 neoplasm of colon Medical Ce nter (procedure) [code = 842010028] Future Scheduled 1972 Screening for malignant [facility] 00:00:00 neoplasm of colon Medical Ce nter (procedure) [code = 094445713] Future Scheduled 1972 Screening for malignant [facility] 00:00:00 neoplasm of colon Medical Ce nter (procedure) [code = 746679218] Future Scheduled 1972 Sigmoidoscopy [code = [facility] S[facility]oscopy] Medical Cente r Future Scheduled 1972 CT Colonography (combo) [facility] 00:00:00 [code = CT Colonography [facility] (combo)] Future Scheduled 1972 Screening for malignant [facility] 00:00:00 neoplasm of colon Medical Ce nter (procedure) [code = 743360817] Future Scheduled 1972 Screening for malignant [facility] 00:00:00 neoplasm of colon Medical Ce nter (procedure) [code = 044431223] Future Scheduled 1972 Screening for malignant [facility] 00:00:00 neoplasm of colon Medical Ce nter (procedure) [code = 734514262] Future Scheduled 1972 Screening for malignant [facility] 00:00:00 neoplasm of colon Medical Ce nter (procedure) [code = 678101479] Future Scheduled 1972 Sigmoidoscopy [code = [facility] S[facility]oidoscopy] Medical Cente r Future Scheduled 1972 CT Colonography (combo) [facility] 00:00:00 [code = CT [facility] ([facility])] Future Scheduled 1972 Screening for malignant [facility] 00:00:00 neoplasm of colon Medical Ce nter (procedure) [code = 593624772] Future Scheduled 1972 Screening for malignant [facility] 00:00:00 neoplasm of colon Medical Ce nter (procedure) [code = 684055611] Future Scheduled 1972 Screening for malignant [facility] 00:00:00 neoplasm of colon Medical Ce nter (procedure) [code = 892388736] Future Scheduled 1972 Screening for malignant [facility] 00:00:00 neoplasm of colon Medical Ce nter (procedure) [code = 841421814] Future Scheduled 1972 Sigmoidoscopy [code = [facility] Sigmoidoscopy] Medical Cente r Future Scheduled 1972 CT Colonography (combo) [facility] 00:00:00 [code = CT [facility] ([facility])] Future Scheduled 1972 Screening for malignant [facility] 00:00:00 neoplasm of colon Medical Ce nter (procedure) [code = 914637090] Future Scheduled 1972 Screening for malignant [facility] 00:00:00 neoplasm of colon Medical Ce nter (procedure) [code = 515033594] Future Scheduled 1972 Screening for malignant [facility] 00:00:00 neoplasm of colon Medical Ce nter (procedure) [code = 534145150] Future Scheduled 1972 Screening for malignant [facility] 00:00:00 neoplasm of colon Medical Ce nter (procedure) [code = 568118350] Future Scheduled 1972 Sigmoidoscopy [code = [facility] 00:[facility] Sigmoidoscopy] Medical Cente r Future Scheduled 1972 CT Colonography (combo) [facility] 00:00:00 [code = CT [facility] ([facility])] Future Scheduled 1972 Screening for malignant [facility] 00:00:00 neoplasm of colon Medical Ce nter (procedure) [code = 002136789] Future Scheduled 1972 Screening for malignant [facility] 00:00:00 neoplasm of colon Medical Ce nter (procedure) [code = 890027612] Future Scheduled 1972 Screening for malignant [facility] 00:00:00 neoplasm of colon Medical Ce nter (procedure) [code = 055717905] Future Scheduled 1972 Screening for malignant [facility] 00:00:00 neoplasm of colon Medical Ce nter (procedure) [code = 380520940] Future Scheduled 1972 Sigmoidoscopy [code = [facility] 00:[facility] Sigmoidoscopy] Medical Cente r Future Scheduled 1972 CT Colonography (combo) [facility] 00:00:00 [code = [facility] Future Scheduled 1972 Screening for malignant [facility] 00:00:00 neoplasm of colon Medical Ce nter (procedure) [code = 516052568] Future Scheduled 1972 Screening for malignant [facility] 00:00:00 neoplasm of colon Medical Ce nter (procedure) [code = 698512691] Future Scheduled 1972 Screening for malignant [facility] 00:00:00 neoplasm of colon Medical Ce nter (procedure) [code = 031379402] Future Scheduled 1972 Screening for malignant [facility] 00:00:00 neoplasm of colon Medical Ce nter (procedure) [code = 363773534] Future Scheduled 1972 Sigmoidoscopy [code = [facility] Sigmoidoscopy] Medical Cente r Future Scheduled 1972 CT Colonography (combo) [facility] 00:00:00 [code = CT Colonography [facility] (combo)] Future Scheduled 1972 Screening for malignant [facility] 00:00:00 neoplasm of colon Medical Ce nter (procedure) [code = 136914821] Future Scheduled 1972 Screening for malignant [facility] 00:00:00 neoplasm of colon Medical Ce nter (procedure) [code = 731619769] Future Scheduled 1972 Screening for malignant [facility] 00:00:00 neoplasm of colon Medical Ce nter (procedure) [code = 733093735] Future Scheduled 1972 Screening for malignant [facility] 00:00:00 neoplasm of colon Medical Ce nter (procedure) [code = 689265937] Future Scheduled 1972 Sigmoidoscopy [code = [facility] 00:[facility] Sigmoidoscopy] Medical Cente r Future Scheduled 1972 CT Colonography (combo) [facility] 00:00:00 [code = CT [facility] ([facility])] Future Scheduled 1972 Screening for malignant [facility] 00:00:00 neoplasm of colon Medical Ce nter (procedure) [code = 325355538] Future Scheduled 1972 Screening for malignant [facility] 00:00:00 neoplasm of colon Medical Ce nter (procedure) [code = 277879307] Future Scheduled 1972 Screening for malignant [facility] 00:00:00 neoplasm of colon Medical Ce nter (procedure) [code = 142818383] Future Scheduled 1972 Screening for malignant [facility] 00:00:00 neoplasm of colon Medical Ce nter (procedure) [code = 151306477] Future Scheduled 1972 Sigmoidoscopy [code = [facility] 00:[facility] Sigmoidoscopy] Medical Yecenia r Future Scheduled 1972 CT Colonography (combo) [facility] 00:00:00 [code = CT Colonography [facility] (combo)] Future Scheduled 1972 Screening for malignant [facility] 00:00:00 neoplasm of colon Medical Ce nter (procedure) [code = 052569032] Future Scheduled 1972 Screening for malignant [facility] 00:00:00 neoplasm of colon Medical Ce nter (procedure) [code = 298696885] Future Scheduled 1972 Screening for malignant [facility] 00:00:00 neoplasm of colon Medical Ce nter (procedure) [code = 785532728] Future Scheduled 1972 Screening for malignant [facility] 00:00:00 neoplasm of colon Medical Ce nter (procedure) [code = 065774030] Future Scheduled 1972 Sigmoidoscopy [code = [facility] 00:[facility] Sigmoidoscopy] Medical Hallee r Future Scheduled 1972 CT Colonography (combo) [facility] 00:00:00 [code = CT [facility] ([facility])] Future Scheduled 1972 Screening for malignant [facility] 00:00:00 neoplasm of colon Medical Ce nter (procedure) [code = 800620285] Future Scheduled 1972 Screening for malignant [facility] 00:00:00 neoplasm of colon Medical Ce nter (procedure) [code = 991198574] Future Scheduled 1972 Screening for malignant [facility] 00:00:00 neoplasm of colon Medical Ce nter (procedure) [code = 503822735] Future Scheduled 1972 Screening for malignant [facility] 00:00:00 neoplasm of colon Medical Ce nter (procedure) [code = 407315162] Future Scheduled 1972 Sigmoidoscopy [code = [facility] 00:[facility] Sigmoidoscopy] Medical Cente r Future Scheduled 1972 CT Colonography (combo) [facility] 00:00:00 [code = CT Colonography [facility] (combo)] Future Scheduled 1972 Screening for malignant [facility] 00:00:00 neoplasm of colon Medical Ce nter (procedure) [code = 445051426] Future Scheduled 1972 Screening for malignant [facility] 00:00:00 neoplasm of colon Medical Ce nter (procedure) [code = 377788475] Future Scheduled 1972 Screening for malignant [facility] 00:00:00 neoplasm of colon Medical Ce nter (procedure) [code = 037876623] Future Scheduled 1972 Screening for malignant [facility] 00:00:00 neoplasm of colon Medical Ce nter (procedure) [code = 950984926] Future Scheduled 1972 Sigmoidoscopy [code = [facility] Sigmoidoscopy] Medical Cente r Future Scheduled 1972 CT Colonography (combo) [facility] 00:00:00 [code = CT [facility] ([facility])] Future Scheduled 1972 Screening for malignant [facility] 00:00:00 neoplasm of colon Medical Ce nter (procedure) [code = 884229752] Future Scheduled 1972 Screening for malignant [facility] 00:00:00 neoplasm of colon Medical Ce nter (procedure) [code = 510325679] Future Scheduled 1972 Screening for malignant [facility] 00:00:00 neoplasm of colon Medical Ce nter (procedure) [code = 236433652] Future Scheduled 1972 Screening for malignant [facility] 00:00:00 neoplasm of colon Medical Ce nter (procedure) [code = 846602170] Future Scheduled 1972 Sigmoidoscopy [code = [facility] 00:[facility] Sigmoidoscopy] Medical Cente r Future Scheduled 1972 CT Colonography (combo) [facility] 00:00:00 [code = CT Colonography [facility] (combo)] Future Scheduled 1972 Screening for malignant [facility] 00:00:00 neoplasm of colon Medical Ce nter (procedure) [code = 135648398] Future Scheduled 1972 Screening for malignant [facility] 00:00:00 neoplasm of colon Medical Ce nter (procedure) [code = 817740323] Future Scheduled 1972 Screening for malignant [facility] 00:00:00 neoplasm of colon Medical Ce nter (procedure) [code = 423033613] Future Scheduled 1972 Screening for malignant [facility] 00:00:00 neoplasm of colon Medical Ce nter (procedure) [code = 422493766] Future Scheduled 1972 Sigmoidoscopy [code = [facility] Sigmoidoscopy] Medical Cente r Future Scheduled 1972 CT Colonography (combo) [facility] 00:00:00 [code = [facility] Future Scheduled 1972 Screening for malignant [facility] 00:00:00 neoplasm of colon Medical Ce nter (procedure) [code = 622352055] Future Scheduled 1972 Screening for malignant [facility] 00:00:00 neoplasm of colon Medical Ce nter (procedure) [code = 850475667] Future Scheduled 1972 Screening for malignant [facility] 00:00:00 neoplasm of colon Medical Ce nter (procedure) [code = 199533059] Future Scheduled 1972 Screening for malignant [facility] 00:00:00 neoplasm of colon Medical Ce nter (procedure) [code = 525425437] Future Scheduled 1972 Sigmoidoscopy [code = [facility] Sigmoidoscopy] Medical Cente r Future Scheduled 1972 CT Colonography (combo) [facility] 00:00:00 [code = CT Colonography [facility] (combo)] Future Scheduled 1972 Screening for malignant [facility] 00:00:00 neoplasm of colon Medical Ce nter (procedure) [code = 056962889] Future Scheduled 1972 Screening for malignant [facility] 00:00:00 neoplasm of colon Medical Ce nter (procedure) [code = 533697256] Future Scheduled 1972 Screening for malignant [facility] 00:00:00 neoplasm of colon Medical Ce nter (procedure) [code = 381923868] Future Scheduled 1972 CT Colonography (combo) [facility] 00:00:00 [code = CT Colonography [facility] (combo)] Future Scheduled 1972 Screening for malignant [facility] 00:00:00 neoplasm of colon Medical Ce nter (procedure) [code = 449023174] Future Scheduled 1972 Screening for malignant [facility] 00:00:00 neoplasm of colon Medical Ce nter (procedure) [code = 625300231] Future Scheduled 1972 Screening for malignant [facility] 00:00:00 neoplasm of colon Medical Ce nter (procedure) [code = 762066264] Future Scheduled 1972 Screening for malignant [facility] 00:00:00 neoplasm of colon Medical Ce nter (procedure) [code = 781275545] Future Scheduled 1972 Sigmoidoscopy [code [facility] S[facility]oscopy] Medical Cente r Encounters Start End Encounter Admission Attending Care Care Encounter Source Date/Time Date/Time Type Type Clinicians Facility Department ID 2022-10-13 Outpatient [facility] [id number] [place] 07:39:47 [id number] [facility] 2022-10-12 Outpatient [facility] [id number] [place] 10:36:59 [id number] [facility] 2022-05-24 Outpatient [facility] [id number] [place] 10:44:11 [id number] [facility] 2022-01-09 Outpatient [facility] [id number] [place] 15:21:46 [id number] [facility] 2022-01-06 Outpatient [facility] [id number] [place] 15:19:47 [id number] [facility] 2021-12-19 Outpatient Alyssa, STLMLC STLMLC [id number] Common 11:20:01 Bart [facility] 2021-12-06 Outpatient STLMLC STLMLC [id number] Common 14:04:03 [facility] 2021-11-10 Outpatient STLMLC STLMLC [id number] Common 09:19:01 [facility] 2021-04-14 Outpatient 3 [id number] ENCPL CVA [id number] [facility] 12:29:58 [facility] 2021-04-14 Outpatient 3 [id number] ENCPL REF [id number] [facility] 12:29:39 [facility] 2021-04-13 Outpatient Lay, STLMLC STLMLC Common 13:34:27 [facility] [address] [facility] 2021-04-13 Outpatient Lay, STLMLC STLMLC Common 12:32:17 [facility] 16094 [facility] 2021-04-13 Outpatient Lay, STLMLC STLMLC [id number] Common 12:29:27 [facility] [address] [facility] 2021-04-13 Outpatient Lay, STLMLC STLMLC [id number] Common 12:14:47 [facility] [address] [facility] 2021-04-13 Outpatient Lay, STLMLC STLMLC [id number] Common 12:12:29 [facility] [address] [facility] 2021-04-13 Outpatient Lay, STLMLC STLMLC [id number] Common 12:08:54 [facility] 78015 [facility] 2021-04-13 Outpatient Lay, STLMLC STLMLC [id number] Common 12:05:57 [facility] [address] [facility] 2021-04-13 Outpatient Alireza, STASHLEY STLC [id number] Common 12:05:29 [facility] [address]69 [facility] 2021-04-13 Outpatient STLMLC STLC [id number] Common 12:01:10 [id number] [facility] 2019-02-07 Inpatient MHTW MHTW [id number] MHT W 17:09:56 2019-02-04 Inpatient [facility] MED [id number] [facility] W 02:22:00 2022-05-30 2022-05-30 Outpatient AARON [facility] [id number] [place] 08:30:00 08:30:00 [facility] 2022-04-18 2022-04-19 Inpatient CHRISTIANA REYEZ SW MED [id number] MHSW 10:54:00 12:43:00 2022-01-20 2022-01-20 Outpatient JAMEE LIO [facility] [id number] [place] 13:45:00 13:45:00 [facility] 2021-12-19 2021-12-19 [facility] [id number] mmon 00:00:00 00:00:00 VISIT [facility] PT LEVEL 3 - [facility] 2021-12-13 2021-12-14 Outpatient [facility] Surgery [id number] [facility] 08:01:00 14:31:00 , [facility] 2021-12-13 2021-12-14 Hospital [facility] [id number] 08[facility]01:00 14:31:00 Encounter , [facility] 2021-12-13 2021-12-14 [facility] [id number] [id number] 08:01:00 14:31:00 Encounter , [facility] 2021-12-13 2021-12-13 Surgery [facility] [id number] 11:20:00 13:25:00 , [facility] 2021-12-13 2021-12-13 Surgery [facility] [id number] 11:20:00 13:25:00 , [facility] 2021-12-13 2021-12-13 Anesthesia [facility] [id number] 10:50:00 12:36:00 Event [facility] 2021-12-13 2021-12-13 Anesthesia [facility] [id number] 10:50:00 12:36:00 Event Arreaga, [facility] 2021-11-30 2021-11-30 Outpatient [facility] [id number] [facility] 11:27:08 23:59:00 2021-11-30 2021-11-30 [facility] [id number] 11:27:08 23:59:00 Encounter [facility] 2021-11-30 2021-11-30 [facility] [id number] 11:27:08 23:59:00 Encounter [facility] 2021-11-30 2021-11-30 Outpatient [facility] SLE SLE [id number] SLEH 10:28:55 11:26:00 , [facility] 2021-11-30 2021-11-30 [facility] [id number] 10:28:55 11:26:00 Encounter , [facility] 2021-11-30 2021-11-30 [facility] [id number] [id number] 10:28:55 11:26:00 Encounter , [facility] 2021-11-30 2021-11-30 Outpatient [facility] SLE [id number] SLEH 10:28:13 11:26:00 , [facility] 2021-11-30 2021-11-30 [facility] [id number] 10:28:13 11:26:00 Encounter , [facility] 2021-11-30 2021-11-30 [facility] [id number] [id number] 10:28:13 11:26:00 Encounter , [facility] 2021-11-30 2021-11-30 Outpatient EL [facility] SLE [id number] [facility] 10:27:18 10:27:18 2021-11-29 2021-11-29 Outpatient EL [facility] SLEH [id number] [facility] 15:23:59 23:59:00 2021-11-29 2021-11-29 [facility] [id number] 15:00:00 23:59:00 Encounter [facility] 2021-11-29 2021-11-29 [facility] [id number] 15:00:00 23:59:00 Encounter [facility] 2021-11-29 2021-11-29 Travel [facility] [id number] [facility] 00:[facility]00 00:00:00 [facility] 2021-11-29 2021-11-29 Orders [facility] [id number] 00:00:00 00:00:00 Only , [facility] 2021-11-29 2021-11-29 Orders [facility] [id number] 00:00:00 00:00:00 Only , [facility] 2021-11-29 2021-11-29 Travel [facility] [id number] [facility] 00:[facility]00 00:00:00 [facility] 2021-11-14 2021-11-15 Outpatient nullFlavo TR Baclofen 4 [id number] Memoria 18:07:00 04:59:00 r Related 95 l (BACR) Demar 2021-09-28 2021-09-28 Outpatient CHASTITY, [facility] [id number] [place] 14:15:00 14:15:00 [facility] 2021-09-28 2021-09-28 Outpatient [facility] [id number] [place] 13:45:00 13:45:00 [facility] 2021-09-16 2021-09-16 Telephone [place], [facility] [id number] Univers 00:00:00 00:00:00 Coleen SAMS [id number] i ty of [facility] 4.2.7.2.686 [facility] [id number] [address] 2021-08-25 2021-08-25 Emergency [facility] [id number] Univers 07:51:00 10:42:00 YAZAN butts [facility] 2021-08-25 2021-08-25 Emergency [facility] [id number] Univers 07:51:00 10:42:00 Yazan SAMS 350.1.13.10 i ty of [facility] 4.2.7.2.686 [facility] [id number] [facility] [address] 2021-08-24 2021-08-24 Office URVASHI Carrillo 6414 [id number] [id number] [place] 14:15:00 14:49:22 Visit Rigoberto BURGER 350.1.13.58 Health 9.2.7.2.686 [id number] 1 2021-08-23 2021-08-23 Transition CHANDANA Dash 1.2.840.114 [id number] Univers 00:00:00 00:00:00 of Care Blanca MOSS 350.1.13.10 i ty of [place] 4.2.7.2.686 [facility] [id number] [facility] [address] 2021-08-13 2021-08-22 Inpatient X MIGUEL ANGEL [facility] [id number] Univers 06:11:00 18:15:00 CHARITO butts [facility] 2021-08-13 2021-08-22 Hospital Ebenezer Cabrera [facility] 1.2.840. 114 [id number] Univers 06:11:00 18:15:00 Encounter Jimbo Luna [id number] ity of Deepika Castro 4.2.7.2.686 [place] Charito Michelle [id number] [place] [address] [address] (CLC) 2021-08-22 2021-08-22 Outpatient CRAIG, [facility] [id number] [place] 12:45:00 12:45:00 [facility] 2021-08-05 2021-08-05 Ambulatory nullFlavo MNA [id number] Memoria 16:30:00 16:30:00 Pre-Reg r Neurology 16 l [place] 2021-08-01 2021-08-01 Office Craig, [facility] 6414 1.2.840.114 [id number] [place] 10:15:00 11:56:12 Visit Taylor BURGER 350.1.13.58 Health 9.2.7.2.686 [id number] 1 2021-07-26 2021-07-26 Emergency X [facility] ERT [id number] Univers 09:29:00 13:18:00 ANGUS [facility] 2021-07-26 2021-07-26 Emergency [facility] [id number] [id number] Univers 09:29:00 13:18:00 Angus SAMS 350.1.13.10 i ty of [place] 4.2.7.2.686 [facility] [id number] [address] 2021-07-19 2021-07-20 Outpatient nullFlavo TR Baclofen 4 [id number] [facility] 15:16:00 04:59:00 r Related 93 l (BACR) Demar 2021-07-13 2021-07-13 Emergency X [facility] ERT [id number] Univers 18:34:00 21:46:00 ELAINA [facility] 2021-07-13 2021-07-13 Emergency [facility] [id number] [id number] Univers 18:34:00 21:46:00 Elaina SAMS 350.1.13.10 i ty of [place] 4.2.7.2.686 [facility] [id number] [address] 2021-06-08 2021-06-08 Emergency [facility] [id number] Univers 11:15:00 15:55:00 [facility] 2021-06-08 2021-06-08 Emergency [facility] [id number] Univers 11:15:00 15:55:00 Yazan SAMS 350.1.13.10 i ty of [place] 4.2.7.2.686 [facility] [id number] [address] 2021-06-07 2021-06-07 Emergency [facility] [id number] Univers 08:16:00 12:53:00 YAZAN itbob [facility] 2021-06-07 2021-06-07 Emergency [facility] [id number] [id number] Univers 08:16:00 12:53:00 Yazan SAMS 350.1.13.10 i ty of [place] 4.2.7.2.686 [facility] [id number] [address] 2021-06-06 2021-06-06 Telephone Lio Mancuso [facility] 6400 1.2.840.114 [id number] [place] 00:00:00 00:00:[address] 350.1.13.58 [facility] 9.2.7.2.686 [id number] 0 2021-03-16 2021-03-17 Outpatient nullFlavo TR Baclofen 4 [id number] Memoria 18:51:00 05:59:00 r Related 92 l (BACR) Demar 2021-01-20 2021-01-20 (TEL) STLMLC STLMLC [id number] Co mmon 00:00:00 00:00:00 [facility] 2020-12-27 2020-12-27 Ambulatory nullFlavo MNA [id number] Memoria 15:30:00 15:30:00 Pre-Reg r Neurology 15 l [place] Demar 2020-11-16 2020-11-17 Outpatient nullFlavo TR Baclofen 4 [id number] Memoria 15:46:00 04:59:00 r Related 89 l (BACR) Demar 2020-11-08 2020-11-08 EXT [facility] OP Aaron EXT MSRDP 1.2.840.114 [id number] [place] 00:00:00 00:00:00 Missy LOCATION 350.1.13.58 H ealth 9.2.7.2.686 [id number] 0 2020-11-08 2020-11-08 EXT [facility] OP Aaron, EXT MSRDP 1.2.840.114 [id number] [place] 00:00:00 00:00:00 Missy LOCATION 350.1.13.58 H ealth 9.2.7.2.686 [id number] 0 2020-10-26 2020-10-27 Outpatient nullFlavo TR BT- [id number] Memoria 15:27:00 04:59:00 r Adult BI 90 l (ABIR) Ot[place] 2020-08-30 2020-08-31 Outpatient nullFlavo MNA [id number] Memoria 19:00:00 04:59:59 r Neurology 14 l [place] Otis 2020-08-26 2020-08-26 (TEL) STLMLC STLMLC [id number] Co mmon 00:00:00 00:00:00 [facility] 2020-06-18 2020-06-19 Outpatient nullFlavo TR Baclofen 4 [id number] Memoria 15:15:00 04:59:00 r Related 87 l (BACR) Otis 2020-06-07 2020-06-07 (TEL) STLMLC STLMLC [id number] Co mmon 00:00:00 00:00:00 [facility] 2020-05-10 2020-05-10 (TEL) STLMLC STLMLC [id number] Co mmon 00:00:00 00:00:00 [facility] 2020-04-28 2020-04-28 (TEL) STLMLC STLMLC [id number] Co mmon 00:00:00 00:00:00 [facility] 2020-04-27 2020-04-27 (TEL) STLMLC STLMLC [id number] Co mmon 00:00:00 00:00:00 [facility] 2020-04-22 2020-04-22 (TEL) STLMLC STLMLC [id number] Co mmon 00:00:00 00:00:00 [facility] 2020-04-06 2020-04-06 (TEL) STLMLC STLMLC [id number] Co mmon 00:00:00 00:00:00 [facility] 2020-04-02 2020-04-02 (TEL) STLMLC STLMLC [id number] Co mmon 00:00:00 00:00:00 [facility] 2020-03-29 2020-03-29 (TEL) STLMLC STLMLC [id number] Co mmon 00:00:00 00:00:00 [facility] 2020-03-25 2020-03-25 (TEL) STLMLC STLMLC [id number] Co mmon 00:00:00 00:00:00 [facility] 2020-03-16 2020-03-17 [place] [id number] Memoria 17:24:00 05:59:00 r Spasticity 86 l [facility] (SPCR) 2020-03-11 2020-03-11 (TEL) STLMLC STLMLC [id number] Co mmon 00:00:00 00:00:00 [facility] 2020-03-09 2020-03-09 OFFICE STLMLC STLMLC [id number] Co mmon 00:00:00 00:00:00 VISIT [facility] LEVEL 4 [facility] 2020-03-09 2020-03-09 (TEL) STLMLC STLMLC [id number] Co mmon 00:00:00 00:00:00 [facility] 2020-03-09 2020-03-09 (TEL) STLMLC STLMLC [id number] Co mmon 00:00:00 00:00:00 [facility] 2020-02-26 2020-02-26 (TEL) STLMLC STLMLC [id number] Co mmon 00:00:00 00:00:00 [facility] 2020-02-26 2020-02-26 (TEL) STLMLC STLMLC [id number] Co mmon 00:00:00 00:00:00 [facility] 2020-02-26 2020-02-26 (TEL) STLMLC STLMLC [id number] Co mmon 00:00:00 00:00:00 [facility] 2020-02-16 2020-02-16 (TEL) STLMLC STLMLC [id number] Co mmon 00:00:00 00:00:00 [facility] 2020-02-16 2020-02-16 OFFICE STLMLC STLMLC [id number] Co mmon 00:00:00 00:00:00 VISIT [facility] LEVEL 4 [facility] 2020-01-23 2020-01-23 (TEL) STLMLC STLMLC [id number] Co mmon 00:00:00 00:00:00 [facility] 2020-01-22 2020-01-22 (TEL) STLMLC STLMLC [id number] Co mmon 00:00:00 00:00:00 [facility] 2020-01-20 2020-01-21 Outpatient nullFlavo TR Baclofen 4 [id number] Memoria 15:40:00 05:59:00 r Related 84 l (BACR) Demar 2020-01-19 2020-01-19 Outpatient STLMLC STLMLC [id number] Common 00:00:00 00:00:00 [facility] 2020-01-19 2020-01-19 (TEL) STLMLC STLMLC [id number] Co mmon 00:00:00 00:00:00 [facility] 2019-12-30 2019-12-30 Telephone [facility] 1.2.840.114 [id number] Univers 00:00:00 00:00:00 Coleen Sams 350.1.13.10 i ty [facility] 4.2.7.2.686 Arianna s Professio [phone] Fl dical [address] 2019-12-17 2019-12-18 [place] [id number] Memoria 14:43:00 04:59:00 r Spasticity 85 l [facility] (SPCR) 2019-12-08 2019-12-08 [facility] 1.2.840.114 [id number] Univers 00:00:00 00:00:00 Coleen Sams 350.1.13.10 i ty [place] [phone] Fl dical [address] 2019-11-04 2019-11-05 Outpt Diag nullFlavo [facility] [id number] Memoria 19:54:00 04:59:00 Services r Outpatient 08 l [facility] 2019-10-21 2019-10-21 Telephone [facility] 1.2.840.114 7 [id number] Univers 00:00:00 00:00:00 Coleen Sams 350.1.13.10 i ty of [place] [phone] Fl dic[address] 2019-10-21 2019-10-21 Telephone [facility] 1.2.840.114 7 [id number] 00:00:00 00:00:00 Coleen Sams 350.1.13.10 [place] 4.2.7.2.686 Professio [phone] [address] 2019-09-16 2019-09-17 [place] [id number] Memoria 16:24:00 04:59:00 r Spasticity 83 l [facility] (SPCR) 2019-09-08 2019-09-08 Orders Doctor DARWIN 1.2.840.114 [id number] Univers 00:00:00 00:00:00 Only Unassigned, SALINAS 350.1.13.10 ity of [place] [facility] 4.2.7.2.686 Kwabena as [phone] [address] 2019-09-08 2019-09-08 Orders Doctor DARWIN 1.2.840.114 [id number] 00:00:00 00:00:00 Only Unassigned, SALINAS 350.1.13.10 [place] [facility] 4.2.7.2.686 [id number] [facility] 2019-08-26 2019-08-27 Outpatient nullFlavo TR BT- [id number] Memoria 14:10:00 04:59:00 r Adult BI 31 l (ABIR) [place] 2019-08-13 2019-08-13 Outpatient R OMER MAYO [facility] [id number] Univers 14:30:00 14:30:00 OMER MAYO itbob [facility] 2019-08-13 2019-08-13 Office [facility] 1.2.078.053 [id number] Univers 08:35:52 09:05:52 Visit Straril Luis [place] 350.1.13.10 ity of [place] [phone] Fl dic[address] 2019-08-13 2019-08-13 Office [facility] 1.2.660.475 [id number] 08:35:52 09:05:52 Visit Straril T Amaya 350.1.13.10 [place] 4.2.7.2.686 Professio [phone] [address] 2019-08-12 2019-08-12 Telephone [facility] 1.2.840.114 7 [id number] Univers 00:00:00 00:00:00 Coleen Sams 350.1.13.10 i ty of [place] [phone] [address] 2019-07-22 2019-07-22 [facility] [id number] [facility] 10:20:00 10:20:00 COLEEN bob [facility] 2019-07-09 2019-07-09 [facility] 1.2.840.114 7 [id number] Univers 00:00:00 00:00:00 Coleen Sams 350.1.13.10 i ty [place] [phone] [address] 2019-07-07 2019-07-07 [facility] 1.2.840.114 7 [id number] Univers 00:00:00 00:00:00 Coleen Sams 350.1.13.10 i ty of [place].2.[place] [phone] [address] 2019-07-03 2019-07-03 Orders Doctor DARWIN 1.2.840.114 [id number] Univers 00:00:00 00:00:00 Only Unassigned, SALINAS 350.1.13.10 ity of [place] [facility] 4.2.7.2.686 Kwabena as [phone] [address] 2019-07-03 2019-07-03 Telephone [facility] 1.2.840.114 7 [id number] Univers 00:00:00 00:00:00 Coleen Sams 350.1.13.10 i ty of [place]2.[place] [phone] [address] 2019-06-30 2019-06-30 Telephone [facility] 1.2.840.114 7 [id number] Univers 00:00:00 00:00:00 Coleen Sams 350.1.13.10 i ty of [place].2.[place] [phone] [address] 2019-06-30 2019-06-30 Telephone [facility] 1.2.840.114 7 [id number] Univers 00:00:00 00:00:00 Coleen Sams 350.1.13.10 i ty of [place].2.[place] [phone] [address] 2019-06-25 2019-06-25 Telephone [facility] 1.2.840.114 7 [id number] Univers 00:00:00 00:00:00 Coleen Sams 350.1.13.10 i ty of [place].2.[place] [phone] [address] 2019 2019 Urgent Provider, [facility] 1.2.840.114 [id number] Univers 10:50:50 11:57:31 Care Coleen De La Paz 350.1.13.10 ity of [place] 4.2.7.2.686 Kwabena as Professio [phone] [address] Office Building [employer] 2019 2019 Outpatient R [facility] [id number] Univers 11:00:00 11:00:00 COLEEN butts [facility] 2019-06-19 2019-06-19 Nurse DARWIN Garcia 1.2.840.114 [id number] Univers 00:00:00 00:00:00 Triage Michelle NIÑO 350.1.13.10 i ty of [facility] 4.2.7.2.686 Kwabena as [phone] [address] 2019-06-13 2019-06-13 Telephone [facility] 1.2.840.114 7 [id number] Univers 00:00:00 00:00:00 Coleen Sams 350.1.13.10 i ty of [place].7.2.[place] [phone] Fl dical [address] 2019-06-05 2019-06-05 Outpatient R [facility] [id number] Univers 12:40:00 12:40:00 COLEEN butts [facility] 2019-06-04 2019-06-04 Telephone [facility] 1.2.840.114 7 [id number] Univers 00:00:00 00:00:00 Coleen Sams 350.1.13.10 i ty of [place].7.2.[place] [phone] Fl dical [address] 2019-06-04 2019-06-04 Telephone [facility] 1.2.840.114 7 [id number] Univers 00:00:00 00:00:00 Coleen Sams 350.1.13.10 i ty of [place]2.7.2.[place] [phone] Fl dical nal 044 [facility] 2019-06-02 2019-06-02 Telephone [facility] 1.2.840.114 7 [id number] Univers 00:00:00 00:00:00 Coleen Sams 350.1.13.10 i ty of [place] 4[place]2.7.2.[place] [phone] Fl dical nal 044 [facility] 2019-05-30 2019-05-30 Telephone [facility] 1.2.840.114 7 [id number] Univers 00:00:00 00:00:00 Coleen Sams 350.1.13.10 i ty of [place] 4.2.7.2.[place] [phone] Fl dical nal 044 [facility] 2019-05-30 2019-05-30 Telephone [facility] 1.2.840.114 7 [id number] Univers 00:00:00 00:00:00 Coleen Sams 350.1.13.10 i ty of [place].2.7.2.[place] [phone] Fl dical nal [address] [place] [address] 2019-05-29 2019-05-29 Refill [facility] 1.2.840.114 [id number] Univers 00:00:00 00:00:00 Coleen Sams 350.1.13.10 i ty of [place] 4.2.7.2.[place] [phone] Fl dical nal 044 [facility] 2019-05-28 2019-05-28 Telephone [facility] 1.2.840.114 7 [id number] Univers 00:00:00 00:00:00 Coleen Sams 350.1.13.10 i ty of [place] 4.2.7.2.686 [place] [phone] Fl dical nal [address] [place] [address] 2019-05-28 2019-05-28 Orders Doctor DARWIN 1.2.840.114 [id number] Univers 00:00:00 00:00:00 Only Unassigned, SALINAS 350.1.13.10 ity of [place] [facility] 4.2.7.2.686 Kwabena as [phone] [address] 2019-05-27 2019-05-27 Telephone [facility] 1.2.840.114 7 [id number] Univers 00:00:00 00:00:00 Coleen Sams 350.1.13.10 i ty of [place].2.7.2.[place] [phone] Fl dical nal 044 [facility] 2019-05-24 2019-05-25 Between nullFlavo TIRR [id number] Memoria 13:14:30 13:14:30 Visit r Eleazar 82 l Demar Benz 2019-05-23 2019-05-23 [facility] 1.2.840.114 7 [id number] Univers 00:00:00 00:00:00 Coleen Sams 350.1.13.10 i ty of [place]2.7.2.[place] [phone] Fl dical [facility] 044 [facility] 2019-05-22 2019-05-22 Meter And Service Line Inspector 2, Adc Lab [facility] 1.2.840.114 [id number] Univers 16:02:32 16:17:32 Visit Coleen De La Paz 350.1.13.10 ity of [place] 4.2.7.2.686 [place] [phone] [facility] 353 [facility] 2019-05-22 2019-05-22 Office [facility] 1.2.840.114 [id number] [facility] 14:19:49 15:54:29 Visit Coleen Sams 350.1.13.10 i ty of [place] 4.2.7.2.686 [place] [phone] [address] 2019-05-22 2019-05-22 Outpatient [facility] [id number] Univers 14:20:00 14:20:00 COLEEN fofana [facility] 2019-05-22 2019-05-22 Telephone [facility] 1.2.840.114 7 [id number] Univers 00:00:00 00:00:00 Coleen Sams 350.1.13.10 i ty of [place]2.7.2.[place] [phone] Fl dic[address] 2019-05-22 2019-05-22 Telephone [facility] 1.2.840.114 [id number] Univers 00:00:00 00:00:00 Omer Sams 350.1.13.10 ity of [place] 4.2.7.2.686 [place] [phone] Fl dical nal 085 [facility] 2019-05-20 2019-05-20 Outpatient R OMER MAYO [facility] [id number] Univers 20:00:00 20:00:00 OMER MAYO ity of [facility] 2019-05-20 2019-05-20 Meter And Service Line Inspector 1, [facility] Sleep Lab Bed [facility] 1. 2.840.114 [id number] Univers 13:52:54 16:22:54 Visit Omer Mayo 350.1.13. 10 [place]y of [place]2.7.2.686 [place] [phone] [facility] [address] [place] 2019-05-20 2019-05-20 Telephone Maria Esther [facility] 1.2.840.114 [id number] Univers 00:00:00 00:00:00 Omer Sams 350.1.13.10 ity of [place] 4.2.7.2.686 [place] Alessandraio [phone] [facility] nal 085 [facility] 2019-05-20 2019-05-20 Orders Doctor DARWIN 1.2.840.114 [id number] Univers 00:00:00 00:00:00 Only Unassigned, SALINAS 350.1.13.10 ity of [place] [facility] 4.2.7.2.686 Kwabena as [phone] [facility] [address] [place] 2019-05-07 2019-05-07 Telephone [facility] 1.2.192.097 [id number] Univers 00:00:00 00:00:00 Mer Sams 350.1.13.10 i ty of [place] 4.2.7.2.[place] [phone] [facility] nal 059 [facility] 2019-05-06 2019-05-[address] [facility] 1.2.840.114 7 [id number] Univers 00:00:00 00:00:00 Coleen Sams 350.1.13.10 i ty of [place] 4.2.7.2.686 [place] [phone] [facility] nal 044 [facility] 2019-04-25 2019-04-25 Telephone [facility] 1.2.840.114 7 [id number] Univers 00:00:00 00:00:00 Coleen Sams 350.1.13.10 i ty of [place] 4[place]2.7.2.686 [place] [phone] [address] 2019-04-19 2019-04-19 Orders Doctor DARWIN 1.2.840.114 [id number] Univers 00:00:00 00:00:00 Only Unassigned, SALINAS 350.1.13.10 [facility] 4.2.7.2.686 Kwabena as [phone] [address] 2019-04-16 2019-04-16 Outpatient R LO MAYOGAMendoza [facility] [id number] Univers 15:00:00 15:00:00 OMER MAYO ity of [facility] 2019-04-16 2019-04-16 Telephone [facility] 1.2.840.114 7 [id number] Univers 00:00:00 00:00:00 Coleen Sams 350.1.13.10 i ty of [place] 4[place]2.7.2.686 [place] [phone] [address] 2019-04-16 2019-04-16 Telephone [facility] 1.2.840.114 7 [id number] Univers 00:00:00 00:00:00 Coleen Sams 350.1.13.10 i ty of [place] 4[place]2.7.2.[place] [phone] [address] 2019-04-11 2019-04-11 Telephone [facility] 1.2.840.114 7 [id number] Univers 00:00:00 00:00:00 Coleen Mann 350.1.13.10 it y of [place] 4.2.7.2.686 Kwab[place] as Professio [phone] [address] Building [employer] 2019-04-08 2019-04-08 Emergency [facility] 1.2.840.114 [id number] Univers 13:31:16 16:10:00 Mary Sams 350.1.13.10 ity of [place] 4.2.7.2.686 [place] [phone] [facility] [address] [place] 2019-04-08 2019-04-[address] [facility] 1.2.840.114 7 [id number] Univers 00:00:00 00:00:00 Coleen Sams 350.1.13.10 i ty of [place] 4.2.7.2.[place] [phone] Fl dical nal 044 [facility] 2019-04-01 2019-04-01 Meter And Service Line Inspector Yifan, Adc Lab Main [facility] 1.2.8 40.114 [id number] Univers 13:02:30 13:17:30 Visit Coleen De La Paz 350.1.13.10 ity of [place] 4.2.7.2.686 [place] [phone] Fl dical nal 353 [facility] 2019-04-01 2019-04-[address] [facility] 1.2.840.114 [id number] [facility] 10:41:54 12:02:13 Visit Coleen Sams 350.1.13.10 i ty of [place] 4.2.7.2.[place] [phone] Fl dical nal 044 [facility] 2019-04-01 2019-04-01 Orders Doctor DARWIN 1.2.840.114 [id number] Univers 00:00:00 00:00:00 Only Unassigned, SALINAS 350.1.13.10 ity of [place] [facility] 4.2.7.2.686 Kwabena as [phone] [facility] [address] [place] 2019-02-08 2019-02-21 Inpatient nullFlavo TIRR [id number] Memoria 02:51:00 22:59:00 Rehab r [facility] 29 l Demar [place] 2019-02-04 2019-02-08 [facility] [id number] Memoria 08:22:00 02:15:00 r Demar 23 l [facility] 2018-11-27 2018-11-27 Telephone Basil Singer [facility] 1.2.840.114 [id number] Univers 00:00:00 00:00:00 Nette Sams 350.1.13.10 i ty of [place].7.2.[place] [phone] [address] 2018-11-12 2018-11-21 Office Basil Singer [facility] 1.2.840.114 [id number] Univers 14:40:43 08:13:38 Visit C [place] 350.1.13.10 i ty of [place] 4.2.7.2.686 [place] [phone] [address] 2018-11-13 2018-11-13 Telephone Basil Singer [facility] 1.2.840.114 [id number] Univers 00:00:00 00:00:00 C [place] 350.1.13.10 i ty of [place] 4.2.7.2.[place] [phone] [address] 2018-10-21 2018-10-21 Orders Doctor DARWIN 1.2.840.114 [id number] Univers 00:00:00 00:00:00 Only Unassigned, SALINAS 350.1.13.10 ity of [place] [facility] 4.2.7.2.686 Kwabena as [phone] [address] 2018-10-14 2018-10-14 Telephone Basil Singer [facility] 1.2.840.114 [id number] Univers 00:00:00 00:00:00 C [place] 350.1.13.10 i ty of [place] 4[place]2.7.2.[place] [phone] [address] 2018-10-09 2018-10-[address] [facility] 1.2.840.114 [id number] Univers 00:00:00 00:00:00 C [place] 350.1.13.10 i ty of [place] 4[place]2.7.2.[place] [phone] [address] 2018-09-27 2018-09-28 Outpatient nullFlavo [facility] [id number] Memoria 14:00:00 04:59:59 r Neurosurger 13 l y CRYSTAL Benz 2018-09-24 2018-09-24 Observatio nullFlavo [facility] [id number] Memoria 05:31:00 20:30:00 n r Otis 89 l [facility] 2018-09-24 2018-09-24 Outpatient U [facility] [id number] Memoria 00:31:00 00:31:00 mendoza [facility] 2018-08-26 2018-08-28 Phone nullFlavo MNA [id number] Memoria 13:34:55 04:59:59 Message r Neurosurger 45 l y [facility] 2018-08-09 2018-08-11 Phone nullFlavo MNA [id number] Memoria 20:07:22 04:59:59 Message r Neurosurger 44 l y [facility] 2018-08-05 2018-08-07 Phone nullFlavo MNA [id number] Memoria 18:07:58 04:59:59 Message r Neurosurger 43 l y [facility] 2018-08-05 2018-08-07 Phone nullFlavo MNA [id number] Memoria 18:06:33 04:59:59 Message r Neurosurger 42 l y [facility] 2018-08-02 2018-08-04 Inpatient nullFlavo [facility] [id number] Memoria 20:54:13 20:20:00 r Otis 27 [facility] 2018-08-02 2018-08-04 Inpatient U D[facility] 7527 [facility] 20:29:00 15:20:00 CINDY 2018-01-25 2018-01-26 Outpatient nullFlavo MNA [id number] Memoria 17:45:00 05:59:59 r Neurosurger 12 l y [facility] 2018-01-23 2018-01-25 Phone nullFlavo MNA [id number] Memoria 17:53:00 05:59:59 Message r Neurosurger 41 l y [facility] 2018-01-22 2018-01-23 Outpatient nullFlavo [facility] [id number] Memoria 19:49:00 05:59:00 r Otis 26 [facility] 2018-01-02 2018-01-04 Phone nullFlavo MNA [id number] Memoria 13:17:00 04:59:59 Message r Neurosurger 40 l y [facility] 2018-01-02 2018-01-04 Phone nullFlavo MNA [id number] Memoria 13:16:00 04:59:59 Message r Neurosurger 39 l y [facility] 2017-12-12 2017-12-14 Phone nullFlavo MNA [id number] Memoria 17:27:00 04:59:59 Message r Neurosurger 38 l y [facility] 2017-12-13 2017-12-13 Outpt Diag nullFlavo [facility] [id number] Memoria 00:30:00 00:30:00 Services r Outpatient 07 l Imaging [facility] 2017-11-13 2017-11-15 Phone nullFlavo MNA [id number] Memoria 13:41:00 04:59:59 Message r Neurosurger 37 l y [facility] 2017-10-31 2017-11-02 Phone nullFlavo MNA [id number] Memoria 18:33:00 04:59:59 Message r Neurosurger 36 l y [facility] 2017-11-01 2017-11-01 Observatio nullFlavo [facility] [id number] Memoria 06:09:00 20:56:00 n marcelino Benz 25 l [facility] 2017-10-15 2017-10-17 Phone nullFlavo MNA [id number] Memoria 13:43:00 04:59:59 Message r Neurosurger 35 l y [facility] 2017-06-23 2017-06-29 Inpatient [facility] [id number] Memoria 23:20:00 02:03:00 marcelino Benz 89 l [facility] 2017-03-01 2017-03-03 Phone nullFlavo MNA [id number] Memoria 15:43:00 05:59:59 Message r Neurosurger 36 l y [facility] 2016-12-16 2016-12-17 Observatio [facility] [id number] Memoria 01:21:00 01:35:00 n marcelino Benz 74 l [facility] 2016-10-27 2016-10-27 Outpatient MHIE IE [id number] Memoria 10:00:00 10:00:00 11 l [place] 2016-10-17 2016-10-18 Outpatient [facility] [id number] Memoria 13:40:00 04:59:00 r Demar 21 [facility] 2016 2016-07-11 Inpatient nullFlavo [facility] [id number] Memoria 21:32:00 16:20:00 [facility] 20 [facility] 2016-05-02 2016-05-03 Outpatient nullFlavo [facility] [id number] Memoria 14:46:00 05:59:00 r [facility] 18 [facility] 2016-04-25 2016-04-26 Emergency nullFlavo [facility] [id number] Memoria 20:14:00 00:26:00 r Demar 19 [facility] 2016-04-08 2016-04-09 Emergency nullFlavo [facility] [id number] Memoria 20:41:00 00:36:00 marcelino Benz 17 [facility] 2016-03-31 2016-04-01 Emergency nullFlavo [facility] [id number] Memoria 21:10:00 04:17:00 marcelino Benz 16 [facility] 2016-01-28 2016-01-28 Outpatient MHIE MHIE [id number] Memoria 11:30:00 11:30:00 04 mendoza [place] 2015-11-10 2015-12-31 Inpatient nullFlavo [facility] [id number] Memoria 01:24:00 00:31:00 [facility] 13 [facility] 2015-12-09 2015-12-10 Observatio nullFlavo [facility] [id number] Memoria 18:29:00 21:46:00 sallie Benz 14 [facility] 2015-12-09 2015-12-09 Outpatient MHIE MHIE [id number] Memoria 08:00:00 08:00:00 10 mendoza Benz 2015-12-03 2015-12-03 Outpatient MHIE MHIE [id number] Memoria 09:15:00 09:15:00 09 mendoza Benz 2015-11-03 2015-11-03 Outpatient MHIE MHIE [id number] Memoria 14:45:00 14:45:00 08 mendoza Benz 2015-09-10 2015-09-10 Outpatient MHIE MHIE [id number] Memoria 11:15:00 11:15:00 03 mendoza Benz 2015-09-01 2015-09-01 Outpatient MHIE MHIE [id number] [facility]oria 08:00:00 08:[facility]00 [facility] [facility] 2015-08-20 2015-08-21 [facility] [id number] [facility] 11:24:00 04:59:00 Surgery r [place] 12 [facility] 2015-08-20 2015-08-20 Outpatient MHIE MARIANELA [id number] Memoria 08:00:00 08:00:00 06 [facility] 2015-08-06 2015-08-07 Outpatient [facility]Fl[facility] [id number] [facility] 12:46:00 04:59:00 r [facility] 11 [facility] 2015-08-02 2015-08-02 Bedded [facility] [id number] Memoria 10:08:00 17:45:00 Outpatient r [place] 10 [facility] 2015-06-09 2015-06-29 Inpatient [facility] [id number] [facility]oria 16:22:00 23:41:00 Rehab r [facility] 07 [facility] 2015-05-11 2015-06-10 Challenge [facility] [id number] Memoria 14:00:00 04:59:00 Program r [facility] 00 [facility] 2015-06-04 2015-06-04 Outpatient MHIE MARIANELA [id number] Memoria 10:30:00 10:30:00 01 [facility] 2015-05-24 2015-05-25 Outpatient [facility]Fl[facility] [id number] Memoria 14:45:00 05:59:00 r [facility] 08 [facility] 2015-05-11 2015-05-12 Outpatient [facility]Flavo [facility] [id number] Memoria 20:49:00 05:59:00 r [facility] 09 [facility] 2015-04-28 2015-04-29 Outpatient nullFlavo [facility] [id number] Memoria 18:05:00 05:59:00 r [facility] 05 [facility] 2015-04-27 2015-04-28 OBS [facility] [id number] [facility]oria 12:27:00 05:59:00 Surgery r [place] 06 [facility] 2015-04-02 2015-04-03 Outpt Diag [facility] [id number] Memoria 15:27:00 05:59:00 Services r Outpatient 03 [facility] 2015-04-02 2015-04-02 Outpatient [facility] [id number] Memoria 12:30:00 12:30:00 00 [facility] 2014-09-17 2014-09-17 [facility] [id number] Memoria 10:18:00 12:50:00 Emergency r [place] 03 [facility] 2014-04-05 2014-04-05 [facility] [id number] Memoria 12:06:00 17:14:00 Emergency r [place] 02 [facility] 2014-01-20 2014-01-28 Inpatient [facility] [id number] [facility] 23:49:00 22:30:00 r [place] 01 [facility] 2013-09-30 2013-11-03 Inpatient [facility] [id number] Mem[facility] 03:15:00 22:30:[address] Results Test Description Test Time Test Comments Results Result Comments Source Tissue Exam 2021-12-16 12:00:53 Test Item Value Reference Range Interpretation Comme nts Case Report (test code = 104) Surgical Pathology Report Case: [id number] Authorizing Provider: Jeannette Alexander MD Collected: 12/13/2021 11:35 AM Ordering Location: [facility] PERIOPERATIVE Received: 12/13/2021 12:40 PM SERVICES Pathologist: June Esposito MD Specimen: Explant, previous intrathecal pump DIAGNOSIS (test code = 3220) n6bakVHdRFBws8eyOPZqmCYrDtVyBhVcQjKgUy pc dWMxIHtccnRmMVxlcGljOTYwMlxhbnNpXHNwbHRw E5XlcfvfUVxeAH0gUN1ijMzrvHDmkBCnQUBsFpHa j5ozr745jXIgp3iwTEOKgokgoYl9iTpqQ94nn8C8 CamkZ19wkIOgWJQ0FMPfFDEieBZxJRUsZRW2BVCm zSKzB1tuZVVaTJ0wbqnjGUssZCghSXTmuVJ3KOYi xDXkL3GoTMEoSGpuESNtphj2LvQwRt1avATytWex MFxwYXJkXHBsYWluXGZzMjAgTUVESUNBTCBERVZJ Y2AxKSJSXo1CAGNAEZMHLrEdTM1MNrSPUZGZHCat APIVOOTmOBXOHM9CZNr8IJgmvhVfXTMxTDTkHB1F BWpJPPuxRYXOKWZXBOXCVmGPBe8KJgTZRIQTOYkD TLKDMSlDFjKOVaqYXEcMFZBQV0XxW8NYUQaSF8OY GBBTZ5VMGHKVFD6QEDrnXXHklEPnpBujdaVaCGbg u4KvUZzrWEWqFG3myUwtVTKmSJ3mMCNgB2pfdR4v kuc4ZuMdWCLxVjY1AWSnulV4Lwi6NDDpCXqqn6eh k9EaYLHlWDt1xVuuMuIsYXOxi8zajyBsPtHmOGYg UALaYJWggQPxZ479s7tcb2zoqzVuvDQ5DEMdSHF5 GBfofwTemiA1HAdmvSPkBrI3TZohovBxBVyihoWt raWySoj2LGYeE927DEA6fGmtd7yjHIT2HAVvKNSu AoQbJs4ujZXoK180MDWySRTGIXHarEb9YKOiqvLc hjYacFAMs824I986y7caNVIpyfIcoCtOzawuj6yz V479DBAjsQBdlpYgSfOyHONnvSPciVI2XEWiIC0w stvyHMraFKjaZZWlzcT9ZXApwNLpA1UmTBFzDW4t xchnAKC8AIwrHYPwRFP8VkXwQDAbq3Yzijh2JqLv tk1kom83BOK6k8TkqIdwUDR8MXU7ZpBhVi9ksVGd TCNuEJ6wGbYjwQWuMRTaad31yOihQRqvDUM3IIIk tvOdz3Pis7jqMaZwmoIyX8duF0PxTCMxTFMbKZLh YtSmvaNkj6Kla0UbcLClmJo7a7jfELJpEZAwmRcq z7elFWO5RMKedOGgJ7drqF7oXHPdVL2mfdvwi4jw YQmfQNngIRQmfJI1ibV6YAEgrTBzN1TovO3pLYKn AXtbEOUueld2FoYtCv4daFOnsFveIXbqKtfiDLwp XHBnbmNvbnRccGduZGVjXHBsYWluXHBsYWluXGYw XGZzMjRccWxcbGFuZzEwMzNcaGljaFxmMVxkYmNo FGWjKUrhC4okDwWdDtGoZvt0DKXgnLGbHIIuWdv8 XCUmkLMgBSDUaXyqbA8wMBPtmMzvgB4knGD8ZPDq mgZshONLaO5gLBNWeB6dDdE2GJVpXbs4MUT3DqDx cGFyfX0= CPT Code(s) (test code = 7797) m3wwtKHzTHIpaTJ9QaBnEEYir3imf9IaiBGr cGFy ZPbulFIfzoDafd90hUM8cZ04LZ9uNFMgIhS3XEWl fhO0Kdm7UKKeDNDtaMQdJ846k4yyi8mbuhMtvVE8 kXdqUFToyancQkM6LFssJLUmnzsmBUl7AMynTIMi kMJ8RNOucXLxZ1DyEVZxGX3lfxz6XOW7JQcfWBQw XeV3ZEEzhWSsPJMtfAcoSPfdw501WNH1NsJoMSWn qiScsLgyoR5pEcSdRQN4BDWqHLkoGMO0 CLINICAL HISTORY (test code = 5776) o5ixoLYzKQIrkAR5RiGbAWAut1evr5J sdHBncGFy NZicoFMvsnRbso41lUU9aH73GG1mVCEqEmX5NWBp igK9Yjf0IHZmHAObzBUxY500c3eqw1gcieFsnDV4 zPkaBHQfkocxBwC7RXajPSBlleuiGKp2DXtaXVQm lWS9MEZqqKVbF6NsPFXcLZ3hoxl1MSL9HFgjXHKh PtG5XEMawYBnJRFxyKyiPWjbi273AVZ7RqIxNULg vnBdtLhvjG3sXdFaENHYmPUubPkkgPL1FIVerf4= GROSS DESCRIPTION (test code = w0vnoEOuNLQdcNHRGJQnQ6plpwKmFFOwkLXr [facility] [id number]) dfsmCKgrWZ2tRF5iwJfkvISyyXEkJE8UHCVlBzAw ETRydGDnzqZnFdUdDYLofWIpzTO0BGUiLK8alucx TBonHJpqEWJkxgO6OQKidUAxV6YbZMHmDA7ygdkt MYS0TNiqkV3enpHUZhqeZk4sgATaiEosTbKkWdUh SOVnNWIaDEHvdFooZNUyTAs1hW2STcdiVUO1LKKV FwnfGHLvTV5Mq4tlCHGglRLsDWO6YUoeaKCgLRXx HAImMHn3UDJuWJoggAPnKP5alIdaOclbhHtfg8Gb zVZeXUaaCMZcYPWrIBpeBQHcPT2DXtXjNLVqTxT7 QmNaIQi3XBy8PA9HOhGrBVQpZVH3IfF7WYQlZJs5 GKaaOP3LGTIsKrk2TDdxPcV7VDL8GbHyPMWiWfHj PRYgKFOjDGorWErdmKRuIL4otDmbpTXoltZADpJR eAMjSC12UvpbFLTqYUucTKXmN85qk6KWa6CeMY3M WVy1wwEbapdsaV3aWONeaiQtWZtllYFeY6mfRiQk MCBSZWNlaXZlZCBmcmVzaCBsYWJlbGVkIHdpdGgg oFefEVHbdIlkonGvW2O1pgYxFT7yLHTfYDExX4Fm DUMrD58kYTRgdF7wBTPtYQ8dMDVajIQcKV50CjIy iaTkKU9uAVYbj53fUcMRwQ1hgVLpAGHrJChCUSEv g3vsLV5xOGOzUFExpY7kBB5sFVP3vwlgLkG1Ccvy vHP1HdKjaRJgQaPrW58sIREIeNJiSKE9qCVdNXtc LQzwq5FknLSeLMQ2fROaQMBuGKJbFg43INZPKvIM P6BjVWD0UZUjQHelEUHaeVAlnzqbKTWARiJmYHEC H6FyImLkOYNjkj2alqWchH30x1boXFFiUSvzZNMx j9TkXhAkXr8do9NwlVlocyGiGFVrLYQ6Rx3xkNZa CF5gpc7clcGishh0HteqyK9vKHqybV6hAZTrBFvn UELhJ9IynC3wLX0MTotlYUGsAGYSL1EqO15ggYcr DUIASvlzyJVjwkvleEpkZgQwaUKpYcPinCqnzD74 VMGojSYqCUV4OJ5vBFJwfpntOIAiGPUaDTN7OHoy hM63hGYvKZRtCONxrKYjmI6WVOEzBKX5ZYrxqR33 fEQdLV0CDOOdIKF4DMRywVZfWIO3HL7ciV7PuG== MICROSCOPIC DESCRIPTION (test code = o5nhzZTbLUFybIX4YqJrGFMyk5cge0 BsdHBncGFy 3371) DShbpAAnzvWvdr31nXD7tH97KU0oHWAdJkY8QQOx urE7Ifi6PHYxNGNemCXqV863y7tan3mnjrPutGN2 dCmjGUMbcxqyTbM1YZfrUZRbkxbeMVc7LGenUZCt vYB5ACDpkNTqO1AjRWXaQB3bmec9ZXQ0QGtnXQQi TzJ9DKXmaXAoGDMmeUosEEtvz908YDT3IqQvDNMb wsVeaDugdS3rMrPqQFOGo4KmPZSxtUicMWOvID5h IFxwYXJ9 Gross assessment was performed at (test [facility] enter, code = 2777) Department of Pathology, [address] [place] [address] 95[address], Technical component was performed at [facility] er, (test code = 2778) Department of Pathology, [address] [place] [address] 67971, Professional component was performed at [facility] enter, (test code = 2779) Department of Pathology, [address] [place] [address], [id number] 12:00[facility]53 Test Item Value Reference Range Interpretation Comments Case Report (test code Surgical Pathology = 104) Report Case: [id number] Authorizing Provider: Jeannette Alexander MD Collected: 12/13/2021 11:35 AM Ordering Location: [facility] PERIOPERATIVE Received: 12/13/2021 12:40 PM SERVICES Pathologist: June Esposito MD Specimen: Explant, previous intrathecal pump DIAGNOSIS (test code = c5zxbNKeMAToq3thCEBffMA 3220) uZzEwMzNcZnRuYmpcdWMxIH tccnRmMVxlcGljOTYwMlxhb xBeIWWgvRPzD1YwykbyGKht SB8yHS9ffXavxUSlyGTgRQT eCyHja1dos979wWEqj9vaJM IXjaldtAx4zKrfW20ur4W2L eriG27ujFHkCNV2FFPaNWHt lHLcEFUwGOV5GEZogSIaA5t tZAFnDW0chjwtEVkrRJfqSA XbzOO1TIFnbVAaP0BjQQCnQ OepOJTwydi1NyFtKz1tgCNl eTcyMFxwYXJkXHBsYWluXGZ zMjAgTUVESUNBTCBERVZJQ0 QtAGOHFg4VKBUQIDCYEjLcT B4CFdFGFXOIHCvjNQWSMGQm FWNXJT1BBNu6OCjfbrTjAXI zZWVlOC8OLThPLNhmODYJTB PCDJVVAvJOZr6ZBpUKCQQFJ ElGSUNBVElPTiBPTkxZIChQ NOIXK9HyJ2TSNCiPK5ATIHD HO3XXVGODKD0YRBfzHIZewW SbpGfddhAzQIsbu6UuUPclJ UAzFF3ijAqpSZDlHL3hUDPu V3zwiA6qjax6XsQvGQSaXnQ 5BSMrdiM4Eob1QRKqPUwge3 sxq0HeGLPbAHl5mYszSuIvX DFvv7zvfwLdSdXnIVMbHAEl PVSgnBMnV067x6ihy6pxkgI ybGQ7OAKdLWT8KGthorTpbf I2KVjlfJOiGkL8ECuhbgFcR QeyadCxinNhQkh6PDXjK756 BIE1zCnpy6gtCSC4YJVaNBK hJjZtGp5omVIjJ671EYYoOH GNUVBzaXc4CHDtrdZrtmWgw JWGl817L592l6bpZGCuaxIw mHhKqvpmw6jaE268QJOsaWN zrdQbHtWcNEPgiAOeoBX6NS PoGQ4woiyoHBpjLMsuMGGah nU8GHYazJFsK0CoFFAyRX4q wixyARW0WDhqGCRlIJO2NhM yODFgi6Mrnfk5GsCgke0pzv 38QVS7o8DhcYywUUH0GWR9P bMiKe0xwBYkAIFrXN3cEaFi vFMcQOHhog29mNetWLzfPWC 8BKQgnuKue6Xoy4xhHvUmpl OmB6mvT6WdDMDsXBLiRCByZ lPymeRgi9Voi8RvbSWwgQn0 x3sdNBXgUWUeiPlun8flYSU 5JWHdfVNyH4yacZ1sDZWvLL 1yvrqye3uwHXhgQNzzVCYul JU2wmC3GMSilRBoX0WcsE1q ZRMiWUtdUXEbvyf8InVfUq6 vdGVyeTcyMFxzYmtwYWdlXH BnbmNvbnRccGduZGVjXHBsY WluXHBsYWluXGYwXGZzMjRc cWxcbGFuZzEwMzNcaGljaFx sBXbgVsUlZCLfHRzwD3iyKa DqJiNpXml9PLBszXVwZMTjR yn3HXHdtYMqUIBLmUiybK6y EJMjpBwobV4hkOP8VHYqygS wnBNVfV5wVDAVhL5cNuQ2HP OzBja3AEQ5AxFzbHBgwY5= CPT Code(s) (test code w7svlMTyBUKvoNN5CsXjLPH = 3357) iy4vqr9CrzRSraCWdCSckjU TwbtSrtz95jSR2eG95KG5wK OVvLuH8FYYtuhW3Iku8CCMq SVMoaALrS072d2tdi2rgpgQ gpRN9gDotFURgjugvSfN0MS yqFOHiqnhvYVc9GVwcRUApb IX4GRSkcTTxB0XySCEnPQ4e gyt6GKA5BEorDMXpAiN6FPW eqJWkPYTlcGqjUEybp482RF K6GsDlFORnifOhgPyqkC4hQ yFoESS4BTVtIAdeVNU9 CLINICAL HISTORY (test i9vyoNZpISMhhTT1BsJqDKU code = 3356) vd4xqa0OoyYYbpQQsOQcmtI VgmgXzkt54xVJ5xX69JQ2eH LDmAmW0ZZGtyuT0Ozh6IOGx EYQloDHvY426d9ife5zhguZ mrKX0kEirENDdwrxjSuN8NY odXUCrbjjhCYq5XIodQVVta PN2RTPboNXzU7MoMPVxBH4r ucs8KQZ3HNzmZLNaXmS6VRA shVHxJKWojYvdSPbtz743UH B2HjVmNEOueqNnkHzukQ0iY qEfMQHUlWLplZyxxFM5RRCm cn0= GROSS DESCRIPTION g4udgAXsHZUxbYVOJAFrM8h (test code = clnPmXILbyPVgE1OfkojaYM [id number]) vePW5qYM2zmBeeoFPooEUjN Q1MASMnMoZxHWCdjSKvlsCa DaCnCEYhoRDwgKN1MRYzMP9 clqfdXMirHOhaZCPkxqH8YZ PhtBJhE3ToJDRlMX1gjtawF CD4EAssbO4jgjGSWnzfIg9z dHRibHtcZjFcZmNoYXJzZXQ aSHDlfGyfDVYjEZi1lM2WLd rxPKX5NARYTztmBLUtNG3Mo 7loTVGgnHYnODC8SQvpdODh JHJmFIGgJRx6RODkXCykgIV vHZ5ojKrlFvobaSofz8ZinZ BcXGlkIDUxMDAyIFxcZGIgI I9CGdUiZOCiTkW0DhEjCJk0 MMf6VF3KBqMcCGEuNGO0YnF 7HWDdBFl7TFmpBI5UQPNrXm t5OZfuTbC9SZD0LvMrDHGuU iBcXGYgQXJpYWwgXFxmbCBc XS1vaYijdIPfboMUNpHUsOZ qYC78XshaTWWoSQaqWHVvB3 4yb0HRq7RrEN8GFNu6ptEmn ronxJ4dVTXexsPiMVuufDJe O9xnIfFoBGODMITpxGChJER mcmVzaCBsYWJlbGVkIHdpdG volZcnMCYqkBgtuuKcW1N8p dNxJP7zXRUcODIsA9OmMIDd D10yLSPbvN3bXSWvIA4qMDW cfAScUY54JyVgygTbZK4iWV Jxf77fGjJUlJ1izAPgOZJhY RfCNUTzy2fkDL8bLXDrGJTh uJ9yMU1xVCT2nbvtIhM3Wja voBU3FmJvcQIcWpAkP88qIA KPlKNxOWO0uWGdJGfwVYcjx 2ZwiWDpVIQ2cXUlKUXwNFLm Gx33QJAFAsUXA7IsDHW0SRO xIEggTWVkdHJvbmljLCBJTk VoBENYB9FrZdCaHPOwqa4bt fQihN91l0ilSLNvQAarRVRb z4UnMqXbCa7sb3RseQlotkZ sBJNiAUS9My4kqGAjPI2iyx 6lcuEqsjo3ZfoniT2vPCxzh J7lYWRdBRegBUTsU9PlvC1u GC9AVwxwCPBfSDHNY0CsV31 cbGluZSANClxwbGFpblxlcG qgPgBgnXZuPrRwrZbqrF61M ZKuoHDsNHF8LA7jKTPsqqxk SUQdFUQaTVV2ZZhccD74qGX fQKSbSVLnhIEsyU0UHHYaCN R6CQivyB43hMZfRS5ILQUfJ JZ4USMedXQqPQS7OP5dvO5R fQ== MICROSCOPIC y3vshDNeXJIewBB1BnDvCBP DESCRIPTION (test code zr8pbh2DrgCFuwUOuJJmxcY = 3371) BuuiTmvs37qHC3nL01SD9nJ SEnUwV3GJAsiyI3Rwu1RPJq KBUjhMKtK967e3hig0zssmK wdLW9dFahOKQwnngoIqB8AC tnYEErhqegKXm2BPlvLVQhy XS1ADIhvYIeV8KqJATsEP0o ynz5KCJ6TFbhBUEjMhE1OSA teXDhSEPcsEjuWYprd853ZD R0JnYaZLMqotFgkLwahQ9lH vVrBJVZh5CpSYLzhNhuUWYp DI1uJKnhRZX8 Gross assessment was [facility] performed at ([facility], code = 2777) Department of Pathology, [address] [place] [address], Technical component [facility] was performed at ([facility], code = 2778) Department of Pathology, [address] [place] [address], Professional component [facility] was performed at ([facility], code = 2779) Department of Pathology, [address] [place] [address], [id number] 12:00:53 Test Item Value Reference Range Interpretation Comments Case Report (test code Surgical Pathology = 104) Report Case: [id number] Authorizing Provider: Jeannette Alexander MD Collected: 12/13/2021 11:35 AM Ordering Location: [facility] PERIOPER[facility] Received: 12/13/2021 12:40 PM SERVICES Pathologist: June Esposito MD Specimen: Explant, previous intrathecal pump DIAGNOSIS (test code = r1ynwZBpHBHzn4ksQWBxjQB 3220) uZzEwMzNcZnRuYmpcdWMxIH tccnRmMVxlcGljOTYwMlxhb jFvGBEunASjN3UhhqogXXqg VL6cLZ8lcIkhiZShiLQiPHO vFbUiv8owf122iUQmx2juMO QUsrfuqZh6gQveE80lj0L8Y cpsO46bxAWnPVR3UTWcYTOc oJOzJAYhIHC8TFTqrFJeJ0y oFDIzCN3uhshkGNraOSloVV QkjID8ESChdJJbD8LmHRWcU JdmHYNawop2MlEmMe5foOFl eTcyMFxwYXJkXHBsYWluXGZ zMjAgTUVESUNBTCBERVZJQ0 DpQJJJMq4YDJPFFIQBUqOtF P8ZPmWWZZXYEGfrENAWOJSs YSPHFI9MYTb2ASyfutNrIXG gESJjZG2TBWgGSGzhTNDRIA VVVJHYQsXBZy8UNlPAFBQDX ElGSUNBVElPTiBPTkxZIChQ PAAOO9QcV7CMLEbMB8EVSOZ MQ0FNMEMPXY2CKFxoTBIzlY CzwOfdxbNuEYxjx8NwMJhcB IRdZE8zcFqyTKTaKS0gSCUx X6uzqN8skps1AwYfZNMsDbR 1ROJxxkB8Dmb8MXSqEYpna9 vjh4IuQOQjLSm0uPmlNoPbW GAat3piuhOnMjBbRAXlHHCd PVZzzVDdS163h8iej5qjudT gzAO6LXXtQOJ3AVvgreSxcv M9RVvnpTKtLaM6GJenemEoF VfcfcSlckKwEmz3OGIrT995 WIH9hRufo2nyNKG8USExYPO dCjGiAx9zxUVzO650YGJfUH RZFCGccAx4SZVmoxNvgyFnz EQSk158Q902g2qdGGTrlhXj mAhAzayhh4rcX953OOScsZF kkkKnLvLmWSRueFFsuNN9JR QjNH9wjnqyUKsvZTojYTHbt uF2XWXqsCBfB4LlQVBzKH3i cawrYTB1ZGhoLTXaQKT5ClU kSEDwe1Yaele8NoBhdd6qvv 56TLO8h2VgbCftMBB8WKF9X rJjWi9vyTQlFATiBT1yByLb lTRbJFFxrv90mPuxTDnrHFW 7NAMvwpKux1Eby4ioBwKxyv UwQ9fbZ5IfAZQsSTBrEWNhV hWkgcUvv2Igx8FciQMiyRi5 i9meZCSvYEIsyFvne5jxTQO 8TGPmaRNbT5xvrX2gDMDvXS 9wnoubt5vkEFtbGXkpVYAch PX0acN1ZTLbrTBvI9UlzP2n DKMmZJugYRNcabe5CjHzTo6 vdGVyeTcyMFxzYmtwYWdlXH BnbmNvbnRccGduZGVjXHBsY WluXHBsYWluXGYwXGZzMjRc cWxcbGFuZzEwMzNcaGljaFx rWBtiPsOiSBElWGapT8yjQj DbIdApTef2VVVsjGWbQGRsU oh6MBNfuFNoMXTUzXhuyI7u XMRxiMnfkE5viKU4PFHgttR ybSFAzE6gELFZgV9rMpG1HA QaVhv6YVB4GuUykSGpoL4= CPT Code(s) (test code h2hfcPLwJTTebGY5MtPhXYL = 3357) bb4tbp1UgrIZueBJxUYhgsB QsixAnvk58hQH4uI65PV8bH SBsSdA7HIFgmsP0Wvo8LUCi UMKofLQnK618l1wum0pgrcD aaQV4qFazYXFosrhzQlV0SR uuFEGinpvoTLk0ECplOFQcn ED8WAYkgEVuV1WtVJOyNN1g qsw3BNZ8KKbxTLHnVvK0ZTF taXZeGWCkmYfrEPgqt167IH P3AoBzNKDjsxPgoQoxdN3vQ tOwXST4BMTyNFsyWZZ5 CLINICAL HISTORY (test j4cavWVbMDOvuIJ9XzNlXAF code = 3356) wj4gny5HaiWBxiKKwCNtaeV FweeVesq26hPY8wE26ZB8zZ ALlZnT0TKGjloV1Lbk0FHRj IOWafZHaU231i3kxr7kevpH hmZW0cJufLKHpssdjDsE5NX uoPOFrmqqrALm6OZryXOZrr AC0QFIhoGZuF2AvSUIaSM2q oic7PHB7FObjQOQtYqO5QVK otGQkQCMrwOvrCTjgq758PV X6ZdJnLDRbxjMeuBseeH3iG bJwMUHUxWZwxRgabXW0DMZq cn0= GROSS DESCRIPTION v2jwgSLuGSEkxLWBQSVcT9a (test code = mjwPrHAOnkJPdU9CwparpCO [id number]) qkWH2bMQ2zzLoerBUnxRNaW U2PXYMtPeRoOAMszNCyyrDd ZbObAEXvoMBgdOM7NKTlSA6 lkpwgGJyoQXrxHFSltvE4AW QdzARyB5HvHYDyZO3ismsnA AY9AWhvkU2emzBUEakeEp7r dHRibHtcZjFcZmNoYXJzZXQ eVFMwyGeiTTOuRLs9hW9XKa bvPBS1CFZWUndzWGMnGS9Et 0xbZRTeiEWfQPK4OAdlrYTm CYRvQCOiJSr7IIEyPPuxeJW zKK4qeMwbDufeeBpzc0HweZ BcXGlkIDUxMDAyIFxcZGIgI P6OEeVkKKUcPxA3OoTlIYx1 VEi0ML8HWbUjOACsUOB2XxY 6HMQkNEk3IRimSQ1SKDNlQv p5PWiaQkH0WON0SvDhJURbV iBcXGYgQXJpYWwgXFxmbCBc JU3ebJtrkYNbyqKUXoYMuAY yML44NhtgDNHkFRadRONgL0 5xs2XFz9JbAC6TANs4sdTjb npffS0yHEJyvjGhNWeteORo M1gtQdCpVXYSIPMnzCQxUNS mcmVzaCBsYWJlbGVkIHdpdG ngtSshPVLetAdikxBxZ5G1f yUfLU1yCWNsDDChB4CtDVPp M01cCYDjmX0sOLDlMJ6lDYG bsNNzLG84UxZswkJqUP8qCR Jbr97qHeXQqT0puCScTVQjH XmHCRZga4oySA6uWFUmKSCo xC4vVE9yHBA1spxmRhK5Xrv usFA7GnFffYKhVcPnM88iJK LBlNIoLVG0oGVgZCvdXMjpz 5AvdSJdWTO2rVIlPVEuBKWj Hn34NOHAPfIBK4KxBQL0LLE xIEggTWVkdHJvbmljLCBJTk NvNIZBK3JyDsXbXEYmqv4dd sVjvB40p1yaLWKdXVqfEEWa i0FxAlOxJf2fe1RqoPkhfaE iJAJvLHF6Vi9siFQsUP8tsg 1pvbLwgac9KmegqC3qGZbgo I0vMJChVWpdJVJhL7XulU7c MW9KUpunYQBmVCFAO9XeX17 cbGluZSANClxwbGFpblxlcG pbYpQgdIWoNtSrnYpklF83G YSzwRJtELP9DB3fAZMpdugz HKVeCNEaSJP3ALvltX50vRF qFFPjPEVtzLPzyG3KPEZxYY H0XXtthJ86eNQlWF8PKTLnS JJ0AOXhiEZsIJN0LC9wzF3F fQ== MICROSCOPIC q2dzoWPwQKZozJH4IxWvMYD DESCRIPTION (test code qe9rvf5HpkNGcdJInRQajzM = 3371) AlfyNaxv22wPN6xX94QM3rL PXzTiU4RQYgljE6Evd1TWOf PZIveQHmM909y5whk5bxhtF uzEE0lNeaIQXmjiguHeB9ZY mqDJJrofoxPBz5WCqaFKKco BX3RQRfxXGoQ9WyXBHbTG8a akr9GUH8JFawHOQdXbI4KCX qvWBqZZKfeHmyEStyw394SL A8YhKvRCUkhzTqdJbwiF0jA dBgRYOHl7TtFOZadGncBKZc QJ1sTRpoLMI3 Gross assessment was [facility] performed at ([facility], code = 2777) Department of Pathology, [address] [place] [address], Technical component [facility] was performed at ([facility], code = 2778) Department of Pathology, [address] [place], [place] [id number], Professional component [facility] was performed at ([facility], code = 2779) Department of Pathology, [address] [place] [address], [facility] [id number] 12:00:53 Test Item Value Reference Range Interpretation Comments Case Report (test code Surgical Pathology = 104) Report Case: [id number] Authorizing Provider: Jeannette Alexander MD Collected: 12/13/2021 11:35 AM Ordering Location: [facility] PERIOPERATIVE Received: 12/13/2021 12:40 PM SERVICES Pathologist: June Esposito MD Specimen: Explant, previous intrathecal pump DIAGNOSIS (test code = b3emqAHzCGGyo0bjIJErzQP 3220) uZzEwMzNcZnRuYmpcdWMxIH tccnRmMVxlcGljOTYwMlxhb pDhOKOqfKRaH7WqqmxdHPyp GQ8eNP6whVbxuANbaSCqLQN wDcCzi3jpk293tWOwd6qmQD WLrebdgJc5hDwjM85mq3B1R fxiZ04zaUVpGWN1JJZuVGBx mQKlTSClJQG6GJIryRKtV6k iPJFfHT7vihxtAQacVSmhAX CxkQW4CHKixZQkQ6AcDJSpA GooESPkpdc8ChEeKn5nkZCm eTcyMFxwYXJkXHBsYWluXGZ zMjAgTUVESUNBTCBERVZJQ0 ByNWWNHs1PCKDBBLAINrTcS C4LInHADHWTQNjdHPIPOBWm JCBDXK1MVLs9TYwzegZkJLV zNTVhPH2ITKhYFQwdRFUUBT LDVAINBbXCVj3ZQtNWUSHZK ElGSUNBVElPTiBPTkxZIChQ HJTFR0JnX9BZNGpIE7MAXJK PJ9ZFQUXUYS6SUYoqXHRfeD UtyGcbwbBoSRiqm0VbYDmpO XWnFE0zmNfmQKVbDR4yHBLf W4lamS8lymk1SaAjXUJlWkF 4HMIwlwV6Vib5KIGcBFati0 xrt5EvUUUzJUd6cWhlKyAmE FNol4qkbqHgLmJbWKTrPEJk QPGglEEpX370l9ovk6qcbyX qdHM7ONQvZPE3PTnlgoJpvc X2OLtvvGYsZsO5OEauxiFzN NbaljMakjUrEhy3XKPpV360 OSC8xBick8qcRZZ8MUNyAXB vJbKkLy1boEMzX101LOImEA ECGCPhiEz2CZNmlbUlpkRam WZIw983Z969c6piCWJzhuIm uVbKdpmod8izY587BWBnjCQ incAuZoQsAFUexHJwgOD2PC EbZE6emwoeWJuaDNbeZQWpg bL3HRGflCGuN2FrOZPcVU9n tuooNFG2PXwnMSJnCNR7YqS gWNEpv8Fhjzp3LzWjdn7knx 07NCY5o7XyqKzxKAH6FQC6G iVmIq5iuNErIENgRB6oOqMb mALoMNSisw93yNzzAMslUID 0KYEsgwWeo1Tku8gmAoMnad EiG8gkD3WrZTBgJEVrONBjG fCbxyDwv2Kkh1UanCBqiHr6 l9pdCKOmYNWgsKqbt2jnIOU 8GCJwvPEvK0jfsB9gAYHtSM 2kpytlz9ndRVehRGkdNTDfx UG6guT3BTBtoVJeD1GupQ8x YVLgJYbuNGGxmzg8EmOyTn0 vdGVyeTcyMFxzYmtwYWdlXH BnbmNvbnRccGduZGVjXHBsY WluXHBsYWluXGYwXGZzMjRc cWxcbGFuZzEwMzNcaGljaFx yLAivCiJoYMZzXDowC3jtFg ZfTkWzPud1WMJzoFXgWJEvC yn1BHEfrZKoOURIxCwgdH8g BOEvxKqewU3hvFU2BZFlemJ wbDDZoB1uJETGsW5uRxN8JO DkHxx3YQS0XxNxkPQgrB1= CPT Code(s) (test code w3mqgHCgIONkoXG6FnPxEYB = 3357) rg3cwh6AjwVAhnFRhIDtcnN KrugOkye31zVN3rU76BU8dA ZQvBfY0ADWcoaE4Ttn9HRCb GSOtbBQhB562p7aon0ewygN jnCA9yKdfMXDxplsaAfX9IG mhLTJyfyjxTVp7NMpqENIng CF1TPZmxANcP1QtFYAgST2w mwa8RVW2SAksTOUgTmL3LFO axQGoGWNplTkcAAlee791XJ N2VdRlGVUkhrWjgOtdaR0jT jQaCDC8IBUdKNfvYHH9 CLINICAL HISTORY (test g5uijPLlIRMylOB0TyLnEQP code = 3356) qs4xxw6XgaCFmuNMkKXgxgJ GzqcQins31pNC9wA08JZ0mV DHmCuY8AULqdqN3Ekk4WBMp EASdfOXqS583i8xur9epuvT idRX9gVthBVEbchkuYsW2AP abLDJlvpreCQp2KZgeSYGay VY2HCTpgQUrA4HvVFZsJV2h lax2RJC3OKjtDNUnTvE8PGI odOBlGWJjpFznKSjhx792GG R2XwIyWKOvudShfLppbV7pY bXiKMMCaSCvxYfqbUP6FUQu cn0= GROSS DESCRIPTION u2gytDQgEHWszEJOXTZrR5x (test code = alkYyZQTafHTuJ2PlulklJS [id number]) jgTN7jUP6voRhbdWFawCAoN I1FDJHmHbDrMJUkzVWwzmJb QxOtVYGzfLAtwVT0QAFzHO1 olkjaZDvtUGysMQCxuvC8OS UjbFHlY3GrTQHePB3ianfjW KA9OKwkeI1zgaDIFcdiAc9k dHRibHtcZjFcZmNoYXJzZXQ dCTQoqWydFHVfIXp3oN3QNe ifLYI3AMFVOthaCGXyII3Fs 8zjLETkwTWfGMQ7OXbsdZBn IILyTWUaPSh4CKSrOMcwdJK tDQ0boFveSdvvrAgaj9OtjN BcXGlkIDUxMDAyIFxcZGIgI J4RUbZhCZCjWaU6SeHgTOt1 MSz8JR4UPcJdZMCrUOL8ReV 4WEXoPBs7BKjxKB2BOYLmLx k8FHepMuY1KJD0ApNjLJDsL iBcXGYgQXJpYWwgXFxmbCBc SV3quEbuqEZzuvFASxNAhKI iGG32DsowOLJaXIyiDZVkI3 0al7GXs2JsWP0JPTl7exCka fsoxI3xWQPmsmHeEVoehQMc G8mfBxClDETCRVWazQOdBEJ mcmVzaCBsYWJlbGVkIHdpdG iccGsgEKRybEyezzWjQ6I7v aDnNM1iCSXiWIDwZ8JpHPGc J04xPESzhN3jBHMbRE0yHQZ agSQpQS41NiJfeuWgPE6uBJ Igm33sNsRFwS6fpZGxAICfE UeTPFHud7wcMO8fMHVhBEPa rZ5yRU6nGOR5loapEfT3Hfl uoZN4TuGhrBLkCcRpQ66nLI LLiPFdVWE8zGObUHujXWrfk 4ItkAMvMAW0qAHqSWIaANWd Cs93HOFXBuMSE6VpSZI9THQ xIEggTWVkdHJvbmljLCBJTk ZyPLMZJ6KgKvOoXYUfjq5ov aCujF28f8ryMTWgBBvvSXLc k4CaEhLqGm3zw6FlkLtnriX cFHInXGH5Xn4swGSkYY5tgb 1opiLziqd2DthomP6nOUbir D8hTZFrHOpwTOOoQ8ZocX9i DW8OLdbeTLJmIZKHW9PfP70 cbGluZSANClxwbGFpblxlcG kmOoIoqTIaYtBcmUwpxB34P GBbvYGmENI2NU0wMNKepvow GDSdLNUfGZN7QRdisM16fFZ zDCFcREUlaUGhuZ7LGXGtVP C9KVcjwH04uJRtBO9YKLDrF AJ6HUDpcCViYPD2WZ0bnC5W fQ== MICROSCOPIC b1okdMPyKJPgcBU7UrZzXPF DESCRIPTION (test code oj6baf5LewVGzkGRcXNgnaH = 3371) YjqgKbcb67tTL9yM66JK4bA VHnGiG9FROfaoZ3Gpi2EDHp AYErlWMuO752k3xva9ltorN wvUH4iIcsBBBcrojlEnB5GN kqMFIwzmkjZMv1WEayWYLpc VL7EANwoRWcO2HdGPJkJC5m lhu2CJI0QQfmIKWgWmN3CIC xsRFxDVHrrPcaFLshr215QO A4UtHcVEFhbvNcjOqcuE8hY hWoRZGVk2AxTGSvbUodOFUh WB6aRRmfAVF7 Gross assessment was [facility] performed at ([facility], code = 2777) Department of Pathology, [address] [place] [address], Technical component [facility] was performed at ([facility], code = 2778) Department of Pathology, [address] [place] [address], Professional component [facility] was performed at ([facility], code = 2779) Department of Pathology, [address] [place] [address], [facility] [id number] 12:00:53 Test Item Value Reference Range Interpretation Comments Case Report (test code Surgical Pathology = 104) Report Case: [id number] Authorizing Provider: Jeannette Alexander MD Collected: 12/13/2021 11:35 AM Ordering Location: [facility] PERIOPERATIVE Received: 12/13/2021 12:40 PM SERVICES Pathologist: June Esposito MD Specimen: Explant, previous intrathecal pump DIAGNOSIS (test code = f6qkiCDrNUGdo0stKUMnjRQ 3220) uZzEwMzNcZnRuYmpcdWMxIH tccnRmMVxlcGljOTYwMlxhb rNzUVQkbDGuO8UrgewaLEke OM2iNV7yoWexdKOumRVqUBX mPxHln4qfg215dKJhn0uhZQ NGkrohqDz1rTwhX39fa9G9Z kryT61faOJrCIG8OAHeOITy vWGcISWnFOI4VBWzoPGmD6f fXTAeFO6nftfuEMfdWNusFJ XaySC5RVYstAEzN8LiHFEzA AvkPESeoye8ZpFgNf8ioLOx eTcyMFxwYXJkXHBsYWluXGZ zMjAgTUVESUNBTCBERVZJQ0 PiTKWSLm8DHXDJCVYANlHpN A5AXoFQEYGSRRzyVNLPOKIn IQBPHP9BLYy3ZThhwtTgUAD mHUOgJS8LGQoUDRddMZTOCF DXBFQECtXIZd3ZIePRTMLRU ElGSUNBVElPTiBPTkxZIChQ VZFYE0DsH8QHCXaVW0JMDSY OO2UMUJZPWC6DPBfzMHTxgP UoiShcxgBcCMmmf3XcUDidI BKwDR9xyWcxYVBqDD2cDINf N9wcpR6embs8ZpNoSLJdGpJ 8MOAaveP2Cfy1ZKWxHYhva5 fir1QwDEReXAr2kXhwTqVoB ZVdh8jsypAdXnUiCHGtDALy LHLdqCIvY441k2gud4ugzkZ fwML6KQZqINQ0RQewhxIcqi K2EZknjPUhWyX5DKuyhpPfN BeleuIjjbDrXwb6HXHnP439 AKU9cZbfy2ghZAF5ZAAbETT tEbTdOn7vvTYqK916VPYkVZ RBJVIbyCs2FNIldzPhfpLfc VVGf844J309n9zrOMWfcjSx fWhNrkegn3nnU804BNMaqGK gvrXyJzDkEOQqfLBpkQH4DD SdJS2gbhttIIacJBjxSGNvk rA7OALhzYYtT3MxSZDgAO4m jnzhOSC9SRgmEDFiLOM5YfZ aEKCll4Ojzed5JwWewq0qri 15CAS7o3GqlYieHHT2XCV8O xQmTt4seRAcUOOsLC4rOpRm bUTtGGTqta92gTzrTZyeXLV 5ZJTgvmMfu3Lfv3qaZcQpsh JlS6qhN3PrLVGfXSCmMGAzG jPcuvUcr8Iqe9HdjQUzkZm7 z5xiURDrUPDrnHnlr8rhTNB 1RRBoeHRrX3yczL5yHAPpUP 6zxvohr6gxQJjvPAxqIUXnp HW4xlU0UQFisLRcM0VpcU3m HOTzSUetLXTybqe4YpRbSq7 vdGVyeTcyMFxzYmtwYWdlXH BnbmNvbnRccGduZGVjXHBsY WluXHBsYWluXGYwXGZzMjRc cWxcbGFuZzEwMzNcaGljaFx tYUgjDeEeGKLpOVlmU8nkFu OlCvNpTsh3PONfqHFlORLaU hs4TXSgxQYlIWQWpPwdcV3t FTBshUhthI6khRV9QIOeujD emYJNsG0cZFIOlU5oBjC5QK JtYtu5LYK4BjIdbTFgdN3= CPT Code(s) (test code v5dlxNHfBXPqnNS3UfMnUZJ = 3357) aw4cko7OvdJVkgWAbBRhehZ HwflAafy21wNZ6zQ66MT4qC SXhJcP0VGGdemO7Xdw4LNXa VPVdiJCrZ139n9cyc7xsidX lrMT2mLmiWJPsbbmkQpV6LN skXQQtwpgbROu0UEplRLEfz GL3DKHzrFZzH9AeGAAbZT2u tmo3SZR4MUbhIAFiRnX4LOR cbJCyBCWvbNxmKEuxj404CV L5ErTbMPKgmtWnhSuqvJ6jN cVoCKV6WDZrWAljBOZ1 CLINICAL HISTORY (test b9ncxUPvOVOseMM0CjDaDIL code = 3356) on0aoq7BnnCEesACeAUcwnT GgleRhbs14kOZ4uD39VK0sY THwWiA7RFSjxkV1Smi1DNGn XRMjtLDdY778l7lcr8jrgoW phBN6cRtzCDHdxtfrVnC6ZX qvUJDwcfeuPSx5PVcaWGVgj NO5UODirCShC2DaQUFjGP3f akr8SUM5VJwpXBTyUmM7GKU qnBEyBJUdwNdqGZmym060JO L8TcHbEVBkboKwuWscfD7nX rXvPTIZhYOzvGaiiNW8QGBb cn0= GROSS DESCRIPTION k1sxgQJkDDPlzOWKXWZdV8i (test code = sklEkTSPdqIUcD7FksxqpZN [id number]) keFP3cJX7blNfwqHSztGJcR C4BUJFfJtXhHSTrcEGevuJv OuWiSLYiyXHlaVS6XCVuWG4 iktwwDJkdTUuzKNVxzmT2EW BmjOFdD5KhJDFhQT6zribbX PO3PUrslY1qnqSCPmyaZy6m dHRibHtcZjFcZmNoYXJzZXQ xJXSoqSjiOZCkHKe9bJ4WGi cjXEG6ZUIXPkbrMDTgVE5Nw 4hnRXCfiGVqDYW8XEgebXOh HPXnCVLqVQw2SGLfBPlhhKY kRP7qfFlhUdidjRhoz1DufX BcXGlkIDUxMDAyIFxcZGIgI C7JZrRdNUXwMtI1DhEyRRi9 LMn1OQ8CNtCsOIWqESS9PbN 8TXOlJHu9ILpzXW7NNEBeQy j5STatRmZ4ZKK3MfAeIHEsH iBcXGYgQXJpYWwgXFxmbCBc BL1naHcxnPBiosKMTnJLgQF bXZ65HbayNRCwYElsGIMcL7 8nt1YCv2ReRT3YBOd5jaPwp iyguC9gXXLiqwZmOSrvlBAh Q0ktHfAqJPFWLZSylAUvPKI mcmVzaCBsYWJlbGVkIHdpdG rndEtsQHNwjOmjfaAqC2W6p oMlUR2mJYQrEXFyP3EsCUEa N45qTSTfpQ1kTLHdLT5xQSS qiXCtXH74CxPhesCsBM6zFZ Ysd76zFkKZoA8jqJHeZBZdP JrVNXKfy0azNY2bWPWvVKTs iH4aJF7oJEJ6yipmSgL9Ywj ymYE7VnYfkNQiYkWqA61iCF TFfHDpUWS4bZDcWYihPArtr 4JmcDQkHFN4rSYuFWHtZKYz Qy29BFBTWyUXQ3DrIXW3ZGD xIEggTWVkdHJvbmljLCBJTk AqNGPCB3YdGaUgDLDbyj4jr sTcrR26v5qaLYFkQJdjFYAf v8DqOnIbJi1uk4MykNeqcfG bUPAvQAZ4Qm9nuCInHX5dkl 7rvhHhfpj7TxksiB7dNBvon I4hCDHiXSbhLVMtF5RkyL9n IU7XVpojLUSpUUKKM0GtN73 cbGluZSANClxwbGFpblxlcG yoGaAahBBbKvHubMdseL20D IZtlMWkDDH1KW4yPGPrbrvg YVPqGSCqEKU7BVjftD93nPV iQLPzYEGsfUFdcL7QUHXqTE F9QDwacC37gLPtBO6MCJMoF YR8JACwvVGuLEF6EG0pgY8H fQ== MICROSCOPIC s7xboYIuJZBkdMA3JkDoSLB DESCRIPTION (test code hm5dbx2BnmWWapZOjNHmvgJ = 3371) WshmJfkf59aMY8rM18BN6pD RIiWsT7BKQfucK4Vop3IWFk FZGyjOAaA240v5ahm5efjsZ zdDZ3mUttMSZuxugqTlR6IX saSIXuxwnrTLg1EXvfOZAlo YY2MKDhiWIyQ8RrDFQjVY9d sdn1WRD9KTkkVFHcRnF6CGR zcUVnTXUqbUnlFPrnn509VQ F3LcJbLBYyjjOtlMxpvZ9dP uFyQGFGa2VyPACqdKjzJALs FB8zRIkkNGZ3 Gross assessment was [facility] performed at ([facility], code = 2777) Department of Pathology, [address] [place] [address], Technical component [facility] was performed at ([facility], code = 2778) Department of Pathology, [address] [place] [address], Professional component [facility] was performed at ([facility], code = 2779) Department of Pathology, [address] [place], [place] [address], [facility] [id number] 12:00:53 Test Item Value Reference Range Interpretation Comments Case Report (test code Surgical Pathology = 104) Report Case: [id number] Authorizing Provider: Jeannette Alexander MD Collected: 12/13/2021 11:35 AM Ordering Location: [facility] PERIOPERATIVE Received: 12/13/2021 12:40 PM SERVICES Pathologist: June Esposito MD Specimen: Explant, previous intrathecal pump DIAGNOSIS (test code = a8yhfXFlOVLip5tbLMKttPP 3220) uZzEwMzNcZnRuYmpcdWMxIH tccnRmMVxlcGljOTYwMlxhb kMbIQNlxUYqB2LcdcmgDSus ZL3wWT2qoAqvxKXowRFsBKI hCeCdc4rad175pWMnl3beAW ADzljvoKv0aDokX79fa1F5C fnmS35pdGEjTHX8LAOmJOId lZCoJGOcFVJ5LRAurKGlP8x tKHXdYF7lhmimWLssESijEG DirYG6BXWuvYJbH8QkSAHxG KthCGRosjr4HyKdFb0mzVMc eTcyMFxwYXJkXHBsYWluXGZ zMjAgTUVESUNBTCBERVZJQ0 BvGSCQZz6LMMJXFMMYFwKcW N8VLyUAEFSRCObyONZZIJIo AWNCHQ2YMPz9AAkcihNuAHQ hIKUnDM6NHRxANBfpOYPRKK WRHXNBUlAVZd1EEmJNPZRLT ElGSUNBVElPTiBPTkxZIChQ UVSVK7FoW3WTVVbSG7IJOCR ZT9SURPUMKB1KSKehRWVmrQ QhbBihglXxTFwhs7ZoBEfiB AVwSM3ymJwgCVXiVW5mGTAq C4lwlA1vnku1WhQbLESbBwB 0QRWentH1Qez2RXMySDazk1 tzk9SiVQZiQCr8gWgmFnHiS ALqm3nyjkQnRjUdXPNcTFDt XEVduFFlO545b8hau0vsjyU jdPL3LBAhAQG7QUvecjLgrf S0JFbbnPLoIpG2EOcwihFdX QmwvfYouoKlPet2XVJnU435 PYZ8hGfdt5huFZB7DYFmKKD iNcHvEk9gdOZuK589HRMwIZ ZLTGBpyNf2IERpdgRqaeKez SYFq312O837i0jxGFBitsJy jMvJumuqv3rxJ712KNZffVV ndmFtQiVeNMNnjOTqyBI5OP RaUK5greexMKgpRVtjDHTqn kB6EKXsmUYiF3QxKSTpUG5x tsbzYVR7EVmbGVGdDBZ4EtS lKNByz5Xhsof5RpDgmv2tyn 86LHL6a2YizOpnFFE1UWP7Y eNnGk3yyURhSUDgDV1mPyLo wORdGINlzf85rJujBBigGLL 8DMImrtGvb3Xqk2awUjXbrz IgE8rtR7GbOXWdEXHhGKRnW jZdydAgb0Xsr8SlyVJgjCp7 b3jwQUAhWHJxkEnhv9pvMVX 0COIspAQiI0qwqB7fVZJeJN 8oqvxzo3qcURzxSOofDATzq YR9nfP0KAIdjFKeF7BhwI1k UPPfEXedXJJqcam3GaUgGm8 vdGVyeTcyMFxzYmtwYWdlXH BnbmNvbnRccGduZGVjXHBsY WluXHBsYWluXGYwXGZzMjRc cWxcbGFuZzEwMzNcaGljaFx yHVleRuQwTQWqCRzaA8hrQd VlYoJhGov2MOJzqUTxOPZpJ gb8CLDuwTFjJGCRuPbbwB8v HZCljXfipI9jeWY6GRCfbsA miLPOdQ7pGHZLuD6jIlG7VR RfEoh3BTV5EaJdfDGdvQ5= CPT Code(s) (test code n4sqkDZwBKIndXC6DuHlTIN = 3357) ir6veg2WbgVXrrXTwPLemcV BycaArqd88dHZ3wL35VP9iG YLvPgS7TQXjodP6Kih9IAKa FPCqhZRhZ023i1jgf3etopP jsYL6uKdbBAYixmwaAiU8BM cpIDJbwmbsOAd0OSjkIDZym XK1FFQmpRCcD1RoEWCxPX6w vez9JRE9MKdmDCOpTuA8BXA qdXAjWWIatRnzXHkjv486LM B0UxJyEDDafqCorHannA4tC uJwVJZ2IDNvXPwuTXL3 CLINICAL HISTORY (test j8laxHXhCEBniAI5HzPuZBM code = 3356) rs9wuj9NynXUsqFNbWBzlsU KzcvZrls64fWQ3aN35AP9vZ HRyQqV6QPQrudJ6Rxt7TICs CHVnsNGvI366r8jcn1xznvC awLY3gJmaPLPcpoxwUtC1NU ioUYQrancxTVb1YCcfQUAwe UG2OATclRLuG2CkRZMtAY1m jqn5GWQ8QLstPQNlOhF1LHJ ttXQrVQEkfXnlMJtgl525TO M0MmPtZMYonmKdxAqcqX0xZ cOdBALJiEPsfThxaNQ6KJWh cn0= GROSS DESCRIPTION z2ubsIXpVYDnyFXXTWStH0v (test code = kyiJmPMMcaTFxO4ChxixuSV [id number]) ztQA2aYG7xyIfapYUelYOqP Y1BSTSaOhHqYBHjdILgrwGt DpXfLPOjnGKtpXV4HEXtZY9 jtvmwFYfvBSfcELLhshW2ZU OxzGGnZ3LgFKCyPW8ezskgS GM4UTnbfD9cliSZAsnxUr5p dHRibHtcZjFcZmNoYXJzZXQ yRAWjaBokAMWwURx8eN9NMi ptEQA1ATVLNtuvMMJvOC9Vm 8coVKZhsBEsHXL7BAxjlVOg UEIxIIYvDGa5PHEoDJogjGE dAI3llWnuGmmbjFkwp0DffT BcXGlkIDUxMDAyIFxcZGIgI B4FPbUjHXNzXhR4JxBeBJj3 KCp5HC6DTiScPYTpJXX3MoI 5HPEiOGx5DPyrXR8CZVJcNh o7KEpnCtI9SKN8NdEpLDKpO iBcXGYgQXJpYWwgXFxmbCBc KR2npSmlrQXvmmSWUjUYyKG uKP03EsvgPDXyZAowKPWuW9 6uk0FSw6KzWE2XRKd7usWvw fxtaY7oYZHxhcQcMJnvhLUx I6yxKmKePYTVVGOctTDqVSO mcmVzaCBsYWJlbGVkIHdpdG sjoXdvPJCjmAiklhKoJ4O2c bMfOX7mJSFiBSDoX5ScAVTs P57cYQRvlP7lFRKlII5rNWK wwCJjVN40IbQojmSeLN2yEB Znc93iYgIBoB3lhBTqXHHmX QmZPHKqq8naRE7zPWXiKDSd oH7wNV2cYNF1fxjaFiS8Dta kzTC2CbBawATiXpYoE32kYJ CTeSEdAPG1bTPkJIbhZHucu 9SzpPNtEID4fWFaAUYgVBMw Lh54SHQMEmHTR7PgCIH4XSN xIEggTWVkdHJvbmljLCBJTk TeCVINI4WcLhShFCUpyi8jv pEgcB15g9zyMEVhPNtjXRAm r7JvByAaPc5gw0LbiVstwhN aFXQuBSV7Hf4gvGMjXX0vmm 6nmcYjhcc8HxvlhA9bQKhbb E4uDNCdBMkiEULbB6UntL7r AW7UQmppMFMfYJECT5MvW79 cbGluZSANClxwbGFpblxlcG vkAaEcxHVsOuDexYxusO78V LZhcJNtNEK3DN7lEMKjbgaw ACFyKJHzYNL2NQwkvT53kAS hWWAqFKTpqHUsgN8VDBPhTI A2GKpuxA32gUPjGL4XSSQhV LF6TKWrgJMrSXM5QG2obV6L fQ== MICROSCOPIC t4joaKTyPRKhsXX5SpAzMJG DESCRIPTION (test code pk6cqq6ZedSCmbKHiNVhloV = 3371) YrviFtrv39cRV7yY73WL7kB JLgLqI2MRHgpnR2Abn7ZLRa CIEloLXuE256d6phf9ffkfG arZL1hQwfFXQsdkvoQwL5SZ qwKQXtomxjYFx2VQnkQJVuu GR4PQRsjWYaK3FjLFWgHW7d dud0AZE6LNpwNCEqAsT3HFR beZSwYMHcjFsqGLecx354YT V2CjLvGMNpvsGqeQnktX0wV sBdPMMDv5OwUIVpuRsfMFYh UI8kMMszHOX4 Gross assessment was [facility] performed at ([facility], code = 2777) Department of Pathology, [address] [place] [address], Technical component [facility] was performed at ([facility], code = 2778) Department of Pathology, [address] [place] [address], Professional component [facility] was performed at ([facility], code = 2779) Department of Pathology, [address] [place] [address], [facility] [id number] 12:00:53 Test Item Value Reference Range Interpretation Comments Case Report (test code Surgical Pathology = 104) Report Case: [id number] Authorizing Provider: Jeannette Alexander MD Collected: 12/13/2021 11:35 AM Ordering Location: [facility] PERIOPERATIVE Received: 12/13/2021 12:40 PM SERVICES Pathologist: June Esposito MD Specimen: Explant, previous intrathecal pump DIAGNOSIS (test code = d6bljKSiNEYsl1nfZNXlpSY 3220) uZzEwMzNcZnRuYmpcdWMxIH tccnRmMVxlcGljOTYwMlxhb yPtYNOsbLOqM9TsqnmfMMid NW3gTB3pgMoccUGaqGPtTPL hSpXae8fvu819hQQwh1qwUG SIanixaZr5sSkoO53nf0P3N oviD37deKExOOM6HIZpMVDv dEXhVUVzUZO9XLKrrGSuE5r iTKEiRM0freytZNuiVVvfHJ OvhDG1YZHpvOLrC8RnURVbN VpvSUBdxuu1ScCuZp7nsHMu eTcyMFxwYXJkXHBsYWluXGZ zMjAgTUVESUNBTCBERVZJQ0 BqBAWEXj0URRICZRVULjLcS B2IRfXMZVPXNJvaWIIMRLMm ZPYDDB0EUPv8JEczptEtVUP dDEKdPV4QAIkZPTwrUYFPJY MNALDRQmPFUy1SAwRPGGCYA ElGSUNBVElPTiBPTkxZIChQ LUGOV6UuJ9LIWUmDL5ARLSA SK8PSNMGVCU9WNZghKCEjmW PhpOzvzkGpAEqfu2GvHGbcW FElHQ8ipJlsPWCwGP6vUOVh T0qqzK3bhqd6CvLmBKUfOhY 6JADbqjE5Jkq9JINpKPeui1 ctp3VzXCQtSOd3dXhtIqCxT FPzu7wmuwDpBeTgAHOaCNUt PXXaaPWlW819o0akl1fpajS elSA4XAUbDLL5XUthbkVrkn X7LDxzoDTlWaV2BPyrvyQaQ PrkfcXzueLaEtp2RFTmU034 TPU5aWylv5aeBFQ5XVGkSBY rKyDwDx5gmTWbM559GYQvAV FGIQOraBa3XIEugkBwamJcg SODf851I488t0jpEPBqsiXj gLnTuenpk4plQ974XNItvJQ xjuEbWmOrYKZufFJijYB1ZJ XuKZ2hgsneQTpkFNmlRVEqm mI4MBRhoJLrT3LuVDWzLH0s xcyjXBG2ZWqgIMSvVVN8OlH dJKVjz8Euslg6DrYfbh8zwu 90UJC3b0DwiEufVCA3DIY2O oDqFo0ffEFsXPWgRL4kNvRz fMKhSSQdhg53uBquIEihLFS 4SKOvbgJeq5Gts6fpBbYcqo OnZ5fkE5KcHYBrAINaKUCpL nDpdoBza9Kro3ThqMRecRw5 f5juCOUqJMUhfYcrq6dbDZO 7WHApbJEpH4mzmF6vIHCqRC 4mlcahs9xfMNyaPCqjDNHhr RS9yjG6CCIotCPiN7XoaW2t MVPcWSxbPGHtddw7WrHhSm9 vdGVyeTcyMFxzYmtwYWdlXH BnbmNvbnRccGduZGVjXHBsY WluXHBsYWluXGYwXGZzMjRc cWxcbGFuZzEwMzNcaGljaFx vRKnaEjMoKNHwYTifJ0hfAm ClYhBuYgi0BWMguXMwPJEeS ov2TOQrhAAiNLZAtVbteK3j SENtgVpixB3ilTR9QSJrajP yiCGJfI2qDQASuG6bDsQ7QG WyLck6NRH1JeJoaCSehK5= CPT Code(s) (test code y7wuaGGqBBIcdFR0KcUuDKF = 3357) cu8eyb2XzeUHumGJjBJgrkE NvulNmeh68gLH5kK57HT6sB XGeJuU1ALZqclO6Kaf1GMWr LTJcqOEsK307c0cxc6jmfuI rwJL2gLmkGEJwogxcYbN2BW ylAFBvwujuSGo8IAguJTNdj CE4CIMrsLAdB3YuKBDlFB1r mla1PZS9UScmBIGqRvS6JER vsAPnSZDorTyqPLren186KY Z9JpCrRJGjirHkxOxgvU1lJ lDmTYE8RBJkKJydWFN1 CLINICAL HISTORY (test i7hnqGPkJDNwiBH6FmJiJYG code = 3356) ot0dqf5NuqHBcwWKyBIhjgP NorfGllv36wKF8gP37ST5kW ERcOgH9BVDcwiK4Nym0HNVx LRKjkUQvO781n2ccn7xhuhJ cqCC2vGywVVTtnwidStN2KW yxSUTwahwaFSf2CCtmZNTcp TW5PPBofGAmR5UbEAFlPJ9a pec0RGE5ULulXLUbQxI5YTS ubJAjUUZkeRzrIRnir145XQ P5VsHkOGHjizSsaWhebB9yG oBcYOEAxWBheDzknBW1AGTx cn0= GROSS DESCRIPTION c0jaeYJtBBWavGGCTJYdK0p (test code = dsdMjBRBgcAQeS4NixczdGI [id number]) pvOJ1mKH9riOaxyRCpfMIeX L4KVQSyJtSnNIWeeUYoywVg BgSoDIOjvLLtoPO9ULMlCN8 xwzocFLmvTGooXSCzriF1KL MqaUClR2MvQBWwFM8szzwgF OC6KWxjjB9auxIVVcklPm1d dHRibHtcZjFcZmNoYXJzZXQ gZLZlaCfzZFImHXx2kT4JOk leWLD7SDZAPtffZGGbVF1Ry 9yuNSBtpHCeOZS4FTyiiFYh BZOeRKUtECy6ZJGcAQqbuZG qJU0fvDgiZhsfaXfed8GjiJ BcXGlkIDUxMDAyIFxcZGIgI X4OHkAuDEVxNsR9XlLiZTc0 YDn7SU2RYoUlNFFzHDM2JkE 7JLTbFVy6WHywVA0RCVWdXi b8OAwrGyI0OAW8TwCwYNPrJ iBcXGYgQXJpYWwgXFxmbCBc TG2bnLtqoMRskcLEKeSEgBR zKQ68OtcaQVYgEMwbZITwZ1 7tk8ANw3UxDE5PKRt8fnItj dlyoX5kSXJldjCuPKvotHJb N8nlHjRfUMPLYRXnqEYuBZE mcmVzaCBsYWJlbGVkIHdpdG jdlTsnJWCrdDlrheUmP1K5q uTgYT3wQTZgDDKbF3QkACCd F96gIWArjE4tEAMuGF0zBBP usKApTW87BuXqitVzCR7mJB Bqq96kWxRFhI5jsQAsERSnF NhCJKOpf5xqST0vLHPpFXAa tW3aBD5tGUN9ntpbFdZ5Opk cpTU3MmStsMLwLoWzT54wUJ DXdFOtTQD7xLPeGOnhBJyxv 4DyoUObIFJ9vMIlHXBwJUPo Kk24SOBHFnDUB1YoKXL6DET xIEggTWVkdHJvbmljLCBJTk BqIMQQT6WkWpVcLLPyut9je xTkfH04m7jqSEZbGLvwXKXy t0SvMsDkFg5zy7MbeMifoqV rMTHbRHM6Wy2zfKWpFC4uhy 5sexBiqnw0SdkbsX3hOWhnz J2nFBMlFGwuVPAwU4IhnN4h YG1MGpcaYLMlEUSCG7WoC83 cbGluZSANClxwbGFpblxlcG hzZnPdrVGkTkAvjRczhS17V HYiiARaCMQ0QU6yFQDqgvcj XHPpBGLnRDA5DHksqL53vNT sJSTnHCNtgQHqmN6NULSaMH G3FCmriF74sANqMO1ZAWVqI MQ5YDNrhPYwPUB8PH7kcK3V fQ== MICROSCOPIC c1smnWMwAGMljKJ9BwCkJSX DESCRIPTION (test code ih7ifn5PwaOImgOThSCezfS = 3371) BcyvFxzt31eLD8gT25HP7rB BPyGuG9JCRgdtG8Sid4TFCv HGYxcUFhE702p0eia9ncttX sfNI3jXkkESLrgezdVbM2TP ukIZHisykqHFs3JWjwLDByo QM8NYQdnNYtB6YqUVTdOX8e pjm5GYA4TXdyAIUbYfG5VNJ osSAkOGIgvTtdFRsph627ZI Y8QjNoZQIzrqLcsEyftV6jF tIoONPTo6FtLMQsfLnxMEVm IT8hTAuuMQY3 Gross assessment was [facility] [place] performed at ([facility], code = 2777) Department of Pathology, [address] [place] [address], Technical component [facility] [place] was performed at ([facility], code = 2778) Department of Pathology, [address] [place] [address], Professional component [facility] was performed at ([facility], code = 2779) Department of Pathology, [address] [place] [address], [place] [address], [facility] [id number] 12:00:53 Test Item Value Reference Range Interpretation Comments Case Report (test code Surgical Pathology = 104) Report Case: [id number] Authorizing Provider: Jeannette Alexander MD Collected: 12/13/2021 11:35 AM Ordering Location: [facility] PERIOPERATIVE Received: 12/13/2021 12:40 PM SERVICES Pathologist: June Esposito MD Specimen: Explant, previous intrathecal pump DIAGNOSIS (test code = v9ekeZGhLDOwk1bdQTCctBD 3220) uZzEwMzNcZnRuYmpcdWMxIH tccnRmMVxlcGljOTYwMlxhb eRuYSBieMPrR6EwwynmFFpz CT3xAN6aoPfftPXcgOIhWWW lAnMsg8bpf209kQHiq1zwYC CZdedzzWf6dAqyA38ze3P1F jfyF96phJDvSML0ETPmEFZh oLFeGIHyXNB1HNEmiLZsR9c jGJFoSY2qsdcpTOczFFerSN NewCC7AEPalFTbL3PdLTIcL LudBWTtqps5GmQaLs1coINe eTcyMFxwYXJkXHBsYWluXGZ zMjAgTUVESUNBTCBERVZJQ0 IfFVKTTa0ETTICCKKUJsMzO W4DGuOJNQUSYIqvAORKMIAv GXJVMY3ZOFh6FNhzxlTsIDJ lTMXjIX0UFTpMWJcdKMMLJW AEERQXNtTSJi5EMsJTMOEAP ElGSUNBVElPTiBPTkxZIChQ GVWOB5YzI7WCHHpYK8WDSRC EV7ZUPGHRYK9FZCftMESguU QmnBzghjNhIHoqn9EhHWsvY FEzAS9avPoeRPFaEW3tOQUk X2glmE2zany5TgEaCXHoGeS 5UQZsinR4Xjk7QJInGWbzf1 ofe2KzTKUlCJk2tUpjOaUuD FLpp1afslHjMuLdTIVeTSXr FWNneLAwW261n5mbr3cwesQ fxIH7SXDiKYS3TFugdzZwws L6QIbdsPAaVuJ4QFmxftUwN OevmuVsqxNmCil5AENgM969 JKC3gVfgh1wkHRB1ZHZkKRH yInJcRy9ovYXcS990OKKaFN KBHACkbLq1AHBvlzJmqqVtt TPAu503C155k5xhKWEenpAs uFfRlvwin6xiP029ZJNguKP tuwUtTeVwENMnaVOpnXD2LW NeIS4oebzzCFvzASacZYNao iR0JXIqrUGnM1VaBTRnPU3v iuwtISG6OZnzLILlBFS9IiH qDCDbn5Acugh9ZqPhlu2dvy 69SJL8o3CneHzqQDS4IAJ5M pIbKd1pbOKfTOHxKI5cBkXt vOWsXHXmez08cAblKZnoGWF 7XJRvjtZyr6Iwe8jsJdBglu QdH8ncR2WqGHZlUOSdJKJjG sNtioNvx3Luj6PjvCRalBk4 z1bwYJQhTDDiyFkjp7uhJFZ 5KJOcsNKvH1ccyJ1mUTHoFS 6igyiwt3nbCBukBYpgJBEvo EH3ziB6NIIqzAEzN9GagD8z VHSkGVdgNFOvdan8TzJbDd1 vdGVyeTcyMFxzYmtwYWdlXH BnbmNvbnRccGduZGVjXHBsY WluXHBsYWluXGYwXGZzMjRc cWxcbGFuZzEwMzNcaGljaFx bINxrSuBkQPOmCLpqP7ykCt OfLmYtIpv6DPFzvYSkICPrO fv1FMUbaURuYHFPuZcwaG5s LCMhcIjbvT3bhGY2SUUtkpL zmKEBnA8dPOBPwS8lAuE0RR UlAsk4SIB1QmVaeQBgwW4= CPT Code(s) (test code v7yujOBfMOQeoWV6TtLkBXB = 3357) ly9lec2EbbURlcBEqOUdrlF FjqiEoit32aLH7dH22AX4eS BCbVwJ7LESzpiN6Rhm7QZIc ZURfcNIdZ923r3atg5euyxL fxUE8dElbCVLixjhdMjB2ZC wuTROqffqkUUm4XSdyQJCjw WQ0KJXmjNQjR5RzBBGmNI1s ovd7GVF1EDbkLFIzDjR0BZI tqHQpWEAoyApuLPher914SN U7QyMhTMKbrsTxvHcktA6aT oPaLUJ4VKNaZXjsDBQ5 CLINICAL HISTORY (test l2lxmZHeUSOmwYQ8BaMbUVD code = 3356) bq5uom8FyuOXiuVQcQHeklC NksyFnuz27yNZ0eL58XA7dO FWcUdU2SMGuwqH7Dld8WNFx XTXrjFXpS909g5aww4fogeT llKD7zOicNDJtxhpgWxC0FE wwCTAwwvgwFWi3DWkkFDLzn MW9XUQwbIBaL4MzOSHxVQ5h ifr2FKH1CPsoXQBvSmY6NDT nmFRyQPHzbZycITyck611TM H4FiLwZRUunwDftBrujE1yI pOvUWENmWLhdGdiwYZ4OMNn cn0= GROSS DESCRIPTION z4wxtAQwMREshECWVPFkJ2i (test code = qrgWqQTYkaBApH8JdteyiQY [id number]) xqMO6pQR9myAgxyZKemODfA O0PWGVtBnQfBLDpcGPulfUn MnXeVCHgfPVriRD7QJPiOO5 tmunrSIgbNDkwYOIrcuB4NH LqnZCwD9BrQYDgWW7rsytjO ER2AWcleN8cqqZLJrdnYh6j dHRibHtcZjFcZmNoYXJzZXQ uYICueGttUWSdQHn6rI7KZb pbMCX5WBKZJqfbXDFuCV9Cv 2dqJBHzcAVkXVK9XPwdwIZn VVTrONScQCx4EAGfUUkdnDU sDZ7iuLxxCmlsdHasx8YoqQ BcXGlkIDUxMDAyIFxcZGIgI A7GZkShUNQwCvM9EoSvIId6 JDz2CS5CQuSiRYXmFWZ9NdJ 7NPXfONw9GWocIA3TMSZuSf e7KEewPwY0EUE2PtCiJNUyQ iBcXGYgQXJpYWwgXFxmbCBc UQ9fcIsptSYdwlAGVgAKlOC fTS74VaanDTVsIJdzPVBcQ3 8re6QEf8TeFQ5GBXa6xjHlw zwkbN4yFWVudjVwKRupfARr E2qlBaPcDSYUPIOgrBUkMNL mcmVzaCBsYWJlbGVkIHdpdG avdOmoWETxuAjcsrNwH9K7a tWsWN4nAJSsQJOzI1YiJNGq O67oRCVxsN3zNKYlOD5jHLN lgGNpWP04PkVnhiGpXN3kGO Hfi50hMgNUnI2fqTVtFZKwI OjIPCExg8inSO0yXUNxEAPt gF7eAI4pKKJ8edjhElK1Akd uhLI4UlDvoVNxDbJdH37yAT NEuLLtJAU5mEGpDNltKIlvh 5NtvHQrSWM6gIDzIQEcTTWt Xh54MYMYPrAGL6QiYTF5ONE xIEggTWVkdHJvbmljLCBJTk OhLSRBR4BgLoOnCYCpbh8vh rEvkT80y5toTJUvSPrcGEUd z1ErCpVyOr4bb8EwqGdiurX fKTCkTDJ2Tj6jjYZtBA7npt 0ysiUpmnx9YfyjoI4dBLlpr N2uIEIsTTcjFVBvF8LlnY8h KN4OLazcJWZxWQIOB2KvN54 cbGluZSANClxwbGFpblxlcG fbFsKbkHKxNcIyxXcqlV43N IBdwQWlIAH2FY8vTCJqinuq RBIbGYJgPZA3RArfsT02tMT kQORzWYJzbFWugU2QZKHkNO Z8LPdhxO58jOZvQS7YEZNnM CB6IHOwoWFwAGK1CK5evE0Q fQ== MICROSCOPIC r7tomLBpUSQomLQ1JdDnCJH DESCRIPTION (test code me7nfp4AdgJUyaRDdIXixkL = 3371) JnpdLndd74pHV2wB00LC7dD XLhElV9QUMszbX6Mwe4BYLt HTDyxIDzM777j7iyv7usjjM xjUI8oZgbWQVxkkswXgM0MN voKKFzpfifGTy0GQqiBLMos GF4DJEtbRHsT1FbSBDmYW4c rmj4APE5HDhoLRReYuY6OTN mvUJxZFFovHqtSKiro043IT U9NySqRDNdczAwcStopY0sD jHiGEHKf5SqBFAaoDahLLHt HN2kDMwmAFX8 Gross assessment was [facility] performed at ([facility], code = 2777) Department of Pathology, [address] [place] [address], [place] [address], Technical component [facility] [place] was performed at ([facility], code = 2778) Department of Pathology, [address] [place] [phone], Professional component [facility] was performed at ([facility], code = 2779) Department of Pathology, [address] [place] [address], [facility] [id number] 12:00:53 Test Item Value Reference Range Interpretation Comments Case Report (test code Surgical Pathology = 104) Report Case: [id number] Authorizing Provider: Jeannette Alexander MD Collected: 12/13/2021 11:35 AM Ordering Location: [facility] PERIOPERATIVE Received: 12/13/2021 12:40 PM SERVICES Pathologist: June sEposito MD Specimen: Explant, previous intrathecal pump DIAGNOSIS (test code = f0oxiIHtWGMsa4rzUZUrrMU 3220) uZzEwMzNcZnRuYmpcdWMxIH tccnRmMVxlcGljOTYwMlxhb nMwCUDivTDoY1VpftdvWOgn VN3fVG4npXljyJLrsLBfZNH eVkBrx7iwg964lNSih8paGA GMkunalRi1hMvvV73pf0J9J olfU82hxLGmLMK2EWSbVBMc wODmCJEkXSB8XBZilRVgE2y tEIYvVB0cxfhaCVoyYJczHI NqlSW2VLTinULuU5UtSCXlO ZjaMJMbbjj2EoCiDa9xdEVd eTcyMFxwYXJkXHBsYWluXGZ zMjAgTUVESUNBTCBERVZJQ0 HtACRUVp6ARQGPOFGRSbNlT H3VWuGGGVUBOUmzWINJUXNi RRZOTY9VSYb0QXljokRePFO wNVHqHQ4YULfETEsqESJUNW NDXSIZMkBOLv9UWhWHDBEHT ElGSUNBVElPTiBPTkxZIChQ GABUB6JuV9HWSCgOI6UDGIO ME7ARYMWSEL2VDVqhIYVyuC VriWehloQwNPler6JkLXufY ZNkNW5htPynEBOpYW9aZSKs L1gzqG3lfvr1BhVwZZEhYwB 9TBZyyrG4Zvm5LVAdOPagq4 nhy8AoFQYjYRn2vEfgRrOzL SOlr0fiznAySuKwNNFjZLZh POHdxFAbK515x9nik3rgpeQ ibIS6BZUmJMH1CHihwtVjyf T9HWqgpPMpIaR8RHjwolJlX KrcibFohsVoEdz6MQGdG281 QZX4aVnej3axJNL7RHVlPUW zCoKoVm1bbKVmV780YWUuRH ZOECLvdJh8WRQniuTrzlHrq KRHe260W225m6eaFLVxuwAl gMvPucjqp4zzQ928FLPssTJ wijZyFbNeMLWmdDKobWL1VE XbSI2wuxxnGJvcRQspBPYyg rA1PTRftHSmO2UdSWIgCC1n xsxzUJD0SDpqRVWySPT6JxY bTWKfd8Peblv3JbAuzl1ppk 49YPA9n5DgbPiaUUO3WMJ9K fEeXm7rkDPsZIAqGG0iOcXi lSQoOIFfzi92iBprVVugHAV 3RTMgnqNrk2Tjj0ifIqNowa FoQ8hhC4YxCGUqIQXdNEJhT aLmgaDox0Yym6RptFGmtCj2 f4mnJKStPRMmfDjrl9kwFSQ 8ZJFoyXDsA2aglW7zCWYvUI 2mjupxf9yiAOdiIGjeOSQam XJ0imN9WUItjGNfD0WrsK6z QCAfFQkfTPHmrlq9HiHhWa7 vdGVyeTcyMFxzYmtwYWdlXH BnbmNvbnRccGduZGVjXHBsY WluXHBsYWluXGYwXGZzMjRc cWxcbGFuZzEwMzNcaGljaFx hSZnfGkBnZGDtVZttG8epKf HeCsNvKos1IZXdeVRgXRZcN if4RXPgaRSdQIUWpSndkL1w TSFswUquhW9hwEA4DCChnpY chOZFfF8vSTHZnS5pXhZ4AM WxMwh1YBD9VfLtlHPsfQ4= CPT Code(s) (test code l4hwpDGpMEJtuAG2VwFzFIM = 3357) ij7swu3RadHXlfYLdITvhfF KtosZpve83aQA3uR59LM6jQ KBlQaI0GGZapiI8Yhe6DPHr SBLyhCXeF769x7umb5xwpiD ccQN0hAjoXKCyivmqSfS1IK ytONLsyauvLMp8TUzgGHAad MA3QTXteNMaN5ElFDByRD0o fhz1IDZ7PIkxREZmPaA5LPY raZOgQROeqLbjQSsne879CN V2NfQjPLIjiaQyxLeqiX2xG aXaRMT8LDVzREkwKXY3 CLINICAL HISTORY (test d7ubhPHwOYHjpBX6IhNwIPK code = 3356) fk3avl9NusIFarFWsTDxkpS QcacNoaj83lIE7sI34PN8xY WXrPoN6MBWbnjH7Udm4WNYb JXPtwFAjX608b3zvx5ewosP sxHL1fUvuLGTlnyvvOiU9TT yoIDCowddzCCq0VPyyHQJcx ZQ9DOPmiRMwE8CeBTIvKQ7i goe6EXA3MBpbULTzMdZ4ERQ maJOnSZCqqOgpFGpbk539BQ P2FyPzEIBlkfYhjRsfzE2dB oHxLWMSlRHeyWkarWS5FUOa cn0= GROSS DESCRIPTION q0hafZPlDSFakSSFWYTuY5f (test code = mbmQpOATmlGYyV7RkwtizEH [id number]) tjZD8bSC4cqHgrsERwgTMvV Y1MRUMbUvTiJQGhmQZddwSy DaAoBQSfeKZlrPY8EENeKB0 ruprbRParKQwnTHRnoeX2TX NmdAVyL8ZnQJXoSS2obmbiU LM2WIlukF2wswORNohqLj5u dHRibHtcZjFcZmNoYXJzZXQ oSCBbfIfuOFJiZOs0jU5VPv nyDCT5TOAHIftcYRZrBL0Xc 4uePYHerRXjYPD8VEcrdLOe QAKqQYUfXEi7ILWeVXbqpTP cBD7cfEbgXxovgZrny3OpkA BcXGlkIDUxMDAyIFxcZGIgI B9QBbTtYTApTfF2YjEcFBm7 VQs0KG0TYuMhQNDuQWL8GbB 5YEWfPOb1VVzwDO2BCJHrGd f2XIdrQcI0AFR2QgDbDXVaB iBcXGYgQXJpYWwgXFxmbCBc JH5knKjwoJCdybGTTgSGqSJ iCT68JsccPSEjDIyuHEJdG4 1mo9RQl3YeIE1DFMx3hzSha fduyW5sGOXpgkLaWMfmgEYy L4vfMbFmMCZLLVOxgRZvUEB mcmVzaCBsYWJlbGVkIHdpdG zecOsxLNVdyVorxsPmG1Y4p fGjCH4oMMXdKKCwP9JnCIRh C43tQRVvnX8wMTFdBF8tGDR lnTFwXD66GyBuekNjBX2pYR Hjm90vQyTJbW4ezUZqACWxX PgIKXHca6rnYF4zCOLeLRYc zV0uSH3lISJ8knmeUzP8Adv tqYI5TrMuwPJmWsLiZ43eBD WDbNZwKLH5rOBxJApcWRxfj 4UigXNkWLY8aFCkEGWjMLEn Mk68KHVYRrQNU9WyJLN9FZK xIEggTWVkdHJvbmljLCBJTk ZrCQELI3UxEiTqYJLkun3ob sZmvP54m3tgINEcKEkcHSHl w6ZqYrGrRw0bd3YdnUaofuW jAENtANS8De7hqZRpEF5qvk 8esfTdbtx5YtwqhK7aDAmsg P0mSJXtZZlrOHPqZ6JopZ3i PJ2RBfreEEKkFHGLD0RdX62 cbGluZSANClxwbGFpblxlcG bsRzLryGDcYaFbxPdxaL24J TAuhWGzTLG2GO2vFULwnbzb EFNjYYSvZYM8XWgfoY32uPY jPJCcFTIutNJbzG4FFYRsKI F1EHmaaG23zZVlBJ8RNJLgD SK1WNGpeDYxAAA7NS1pgN8O fQ== MICROSCOPIC f2ulxXCpCQDqrLR5GxIfKMT DESCRIPTION (test code kj6xhj7DsuKXmzXJaBMvoyZ = 3371) PrvlFufy56dJA9hW34WP0mC ASkKbV8NNRjlyT1Wtm1LRXy TSQpdOUqH462q2wha8wirdT nlFH8xKhnWBCvxaajEfY4IQ wgHRMznugfONi2WMjqVSIfs HY7ESUlyHClL1HdTCHeUV4h cem7RCF7GCrcRDNeMaE7MAT myGLbRYGjeBukMHbby239ED T6HqRiIKKpjxVhjRukzI8qT yOjAVPMk9FtYQBmpIpkCFCo AO3cBOncELO7 Gross assessment was [facility] performed at ([facility], code = 2777) Department of Pathology, [address] [place] [address], Technical component [facility] was performed at ([facility], code = 2778) Department of Pathology, [address] [place] [address], Professional component [facility] was performed at ([facility], code = 2779) Department of Pathology, [address] [place] [address], [facility] [id number] 12:00:53 Test Item Value Reference Range Interpretation Comments Case Report (test code Surgical Pathology = 104) Report Case: [id number] Authorizing Provider: eJannette Alexander MD Collected: 12/13/2021 11:35 AM Ordering Location: [facility] PERIOPERATIVE Received: 12/13/2021 12:40 PM SERVICES Pathologist: June Esposito MD Specimen: Explant, previous intrathecal pump DIAGNOSIS (test code = [id number] 3220) uZzEwMzNcZnRuYmpcdWMxIH tccnRmMVxlcGljOTYwMlxhb xKiVQQydVYgB7GbkcrrKDpt XY7aXN5vuAvejMKsjKAkGXP iGzAdb2xmp301hHIse0rqFE TLbyfllIf1pDdzQ89bb4Q3N rcnM44xkTYyIFC5ZBYdBCZm xODpVNLnYXD6RCAxqICmN2u qSXSvYI8bguzwQZcsJPwzPM EkmKS6ATKmeXNbY5XmTXZpT GxwFRIetce7AoQjIf9ooSRe eTcyMFxwYXJkXHBsYWluXGZ zMjAgTUVESUNBTCBERVZJQ0 AoCRSQXf3BTWBHAJTUVtHaO H1JTcMESYOBGNmaPHHGCCLv MIULDE6VYMm8ROdyhhWpSED uPVBmDA6NHAoXCSdwFLDUFD NVLPIUSoLDXv7WIhPQMTFBS ElGSUNBVElPTiBPTkxZIChQ YFQSQ5AhF0DGHHjDP4PJYAG AH2FMCGOIRC2TBLpqHONlrP SlrGxqrrReYDjgv1PoGVesF JIaLO9knKvlVFRqBH7bDCUt A6odpM9vnah3QxBkOJUxXkC 2QKMvkjU4Irw0KLGoBFtwd3 cbm1QiATXwQZg4wCtuRsKeO IEjf4ggzsUzHcBjUIVkZBNg QPLycFWuW036g0rih3hhkfJ caIF6FLPdOVY4GCklbjWgaz M2SVywcXSuSoO3VPxpgjMqZ NxacqStkiOmGkv7FKXpS303 PNW3kMypk7jzSVL7VJHvTOT pHoTeFd2gtJUaY147NUXkMM PNKRPkjDj5GONacnPjsdSqn LBHf385E751k8ouWGOoddCf sIzEmhjxd8klY926NSCxaBB xlcBzXzDkYGNtwDWemVX0XQ TrGH6ewtmaPAyxWXlnUQHfh kG1IJIesIXxI0MqPXCbXQ4b eoqsRSX9HYlnPVAeMKT3NmY bKFGms8Mwoph5GxDvii6ioo 91YHR1c9VbnSxdLTE0XYM0U pDgIx9vnQVkPDBdMP6eSzHw mFWsVSXric68eTxaNQofOGO 7LULawzQhl0Hen6hoXbEhcd JuX1paY9GzWZVhATNmRCKmZ lNjjrDxp3Ohu2XtqBVnpIe9 z5kcTAGuESUxpCijn5rtSFT 2ALIpmJWeQ5tlgR4zWNAvCX 0jnhrql7xuVQyyQNdeQSSyg IX1eoU3ZQGerWShB4OqhD7v NMCtHBfwFBAvdcm3YvHiLi4 vdGVyeTcyMFxzYmtwYWdlXH BnbmNvbnRccGduZGVjXHBsY WluXHBsYWluXGYwXGZzMjRc cWxcbGFuZzEwMzNcaGljaFx eKOwcOrHnNNZyFXqeJ4mdTz ZfXfDoGmh9LXCxeXOaNSHgA mr9TDPhzFYlLPTLeYfnmB4u ESLktFssvM5ujOQ6QHMkzyI thLAFwV6cXNJXrS9oOfI9MR KqIle9OAW0ZkQiqGQvsT9= CPT Code(s) (test code i5mupQWrAWLwmUG0MuHkPGQ = 3357) cr0vwi2CqcQBelOGjVJksnC KdbcGnxn04vWR6eC44CT7fA VZmWfJ9OUPlwbW5Aju4ILUm VUBvsOZtN690j9osw1uzuaF jxXU9jHrqHLSwujniQuE8WA hsGWGaoamjORb1LDkaDKGiq RQ0WIJfkMUmS8NuMDXjEY1d jeu0JUC2WHsjIJKsFsR1QYU ouAHiEETakQfiMEcjo262WR A4AoNdJDYaqaAqxZrebB6iB kWiDMM9FZTdEWvdDPE3 CLINICAL HISTORY (test z7sowRSsENQdnLA9GdJjPTF code = 3356) oq7bvf9TliCLwtDClSIvfbG ZzgdMcuq36cMS0jB81KD9aS BVpMoJ5VAQazrG9Ind9JNOw JDAhhOVmD378q2qae9reqrX edLF2mRsoPEUthqeaMeC3DK ycHPClmapgSLc2RJljMXXxr VT7FWAsdKOoL1OzCRWbYR0k fxu8NAY1TQpfLKRaHuI2MPM ocTNtUHBfaDhwBQqjk311PL N1CoMgIFZmhcHeaEanfK1dB nTbYDZRtVEnaKcdnDC6KISz cn0= GROSS DESCRIPTION b8cyyIUcRLOqrPCWSRNmE1t (test code = twhKgPGSaqINfV1LewjmfPC [id number]) akBQ7sEM3vlKjmjLDdsQKxY A3SSMBfBlQtNLHwdYHkgfYf OsQyLLKpbSVzkTP2DAWvLB7 jsvykSOsqWBbyNZMwxkK0GP JpaLGnM1ClMKWtSQ2rzjcsL PS3IMcrhM1jukQZZkbwKg9f dHRibHtcZjFcZmNoYXJzZXQ tHHWvbHmjBSJtAFz1hO5XBi ojYJI1OWAUBscvUJGfCP4Zk 7thILCguJHuERN8KIvfuMOr GZOeIXKfWTz7GSGmGFymqUC sIJ9igOonDoassGmhc3RxrF BcXGlkIDUxMDAyIFxcZGIgI T1HFaMvYDVaIoL8GxSxCHv2 UAp4UD5TVuBnVEWrRYT6AmJ 0YNWrMRs0UOqlLI2ENADrSw t7ESutDvA6RXX6OjIhAKTqU iBcXGYgQXJpYWwgXFxmbCBc FM0eqKxcfBMcchCEWnDCcEP fVT25OnbvYHEkBCsjDEKgY0 4pj6YBn6AdWY7SYCz1spRem ecimG2qRHZyolOnAZayxHXg H9ldFgNaIDKJJFLaoCSlWST mcmVzaCBsYWJlbGVkIHdpdG braVesCXFhcRhqzlBaJ0B1c sDzGW4lQKRhWOQmB9LwICJl S28jECEdlU7bXEEoOV8bRUI pjHQnCZ26WgBikpExEF4iYJ Lfp45tHyGBdA9taIRaGZZaL XiFLJYbc5ajIC8kQJFdTMYb jJ9pYE0wWIV5xhyvHjT8Tki zzWX4GyRfkLFoUhYlD57iZG GEyAUxTNI0aZJnAOhqGQujl 5QrhZRgRVT7gOIcFAUkSTQh Tq74RXULGcOYI5LrPTR5VGW xIEggTWVkdHJvbmljLCBJTk UvIROSO4IaFwWuTVZkyn4cp jRznH54a3viPXHmOSqbCJZp b1ZuNaRiBb3oi2PzfGgdwhW tUNEgGOA6Qa1siGWzEO7gnd 3nyvIipll3NwlmkZ3gEVcdl B6qHIWwOGjaXVWhL1EcaV9b IE0WFcmdBMGlTCAGV2HvN37 cbGluZSANClxwbGFpblxlcG lfUqNlhPHlNbZutLvvkA04Q IAvhNAtGNZ2YG9vMFInrrmm MSCzFARrJGW3UUeuyZ83rME pIRGxHEGejEPdcI0CMRVyGG D3VNmjeC85cLDjOH9OGLLrX QM4HDBshQOcEVD8QX7zkH4L fQ== MICROSCOPIC u0qhjVHbVWYhvLK7PdIhXPR DESCRIPTION (test code sl4yrx5RwdFEwwEHsIZbggQ = 3371) YelwBsug07cXA7pY18DA6yR TJyCaT6RTZanbM6Bim6AEYp KBMkmAWbL766p7mvq8ogozK hiHW4eIokSUTioxrkDaL8LU nuUVWbalzvMQr5KAlkFULqx DH7IQOxhYBeW3ZoSJXtGM2p lvw5OAS9KUtsHYMfZgK1TDY uhGOtLAIdxQwsVBgpd173PA P3OfQfPLQvcqQmwLhtjF5qG oGnEXBQm5FtCTYdaYbyKRXv XA0eQOvaYSU5 Gross assessment was [facility] performed at ([facility], code = 2777) Department of Pathology, [address] [place] [address], Technical component [facility] was performed at ([facility], code = 2778) Department of Pathology, [address] [place] [address], Professional component [facility] was performed at ([facility], code = 2779) Department of Pathology, [address] [place] [address], [facility] [id number] 12:00:53 Test Item Value Reference Range Interpretation Comments Case Report (test code Surgical Pathology = 104) Report Case: [id number] Authorizing Provider: Jeannette Alexander MD Collected: 12/13/2021 11:35 AM Ordering Location: [facility] PERIOPERATIVE Received: 12/13/2021 12:40 PM SERVICES Pathologist: June Esposito MD Specimen: Explant, previous intrathecal pump DIAGNOSIS (test code = r9nmhROhFUJgg3ocMVYejNP 3220) uZzEwMzNcZnRuYmpcdWMxIH tccnRmMVxlcGljOTYwMlxhb kImXSMipIZrP3BtjbqqZExu YA1iWC0nuDobuYSopFFnGGS uAcCps3yli347kDLiq6utRD SBianahTz6eOewN44ij0D5M aslB90mbWYxKSZ0UJFmGNEw tIWwZJYzQOP0XOQdmSTiE6p mZAReAT4qknfmMNqxGJlqRE IyrRM8PHYvaMKiU3OuGIYeR FtiYIHvjgv5FcWdEr4ydSBj eTcyMFxwYXJkXHBsYWluXGZ zMjAgTUVESUNBTCBERVZJQ0 JgZBZFMv6ISPHJKEDHPuSxZ G4HGxAHGCFMSFhjKOFQTSYq QPNTMK5PUWm2SAecjuTjWZY nPKOtRZ1AELyDEIedENLMBS WRYCKKFzPEYr2EGhSNWKORF ElGSUNBVElPTiBPTkxZIChQ EVXZW3LmV1HKCUgSJ2HWKQZ DN8RTVOVQFD7DZIvzGWIkkR FaoUxgbuMmWDsix6NbQDddI QQnKI8ncRafSBNzOQ8oXFIg V6oomB2fsiw2MeUuRPTzIyA 6DPQirfX4Aob0FKWwNHvhu2 mha5OuJLVoCQr1fBseJbBdM FUdp4agdqYbQhPfNFZeSBYg TBYvfOSeW917j3qal2ybddQ okYX1TWLbHFW0LJeltnEagk L6ALeerSEhWhR2TUehnjIiJ XhpozOtxtTbOak9WERuT061 GQU5dSpug6pfMGE7NDKnCSJ nUeFvBn2xaMOdE100UAHtUZ WJUZYamDw6YZVamfTjleDzv SWYp385Q884a3seKAFzehNz rSiHpvblt3niY606XQTqxIJ relEjWhQkOKDtjOAlqCW8QH BvBA2aigvrKQijVYfyIOCrv bU5YGErwUFaZ2AmHGUgZC4h fzeyNVB1SBojPGHhGBX0PqK tDYAwz7Ofgyu5KnPwrk0suw 55DAO9q8QpuTquSJC1ZSZ3J gXsPl8keKPyCCRpPE2dCzSi kAQcSWHzji57uErmLWfwXEV 9IRErkhFpo8Qyr4tsTbKmwx WvW3lwB3WnBFUkZOWnATEoC qAzipMdh5Ijh2FlyOUtiFp6 j6fbWYPyEGUwkEmqd4yyWRU 1ENFoeGJqE9cdrT7dGYVaWR 1dmpxeq2eaBEldCXiyDFSkx ZB9hyO4SLWntJWeQ7FraN3y RVKzHEakUHQiqcf0EjOvYj5 vdGVyeTcyMFxzYmtwYWdlXH BnbmNvbnRccGduZGVjXHBsY WluXHBsYWluXGYwXGZzMjRc cWxcbGFuZzEwMzNcaGljaFx uPEhoLkMuYOQdYXdeL7nvMh AyGwSvWzc2ESRdiYQrKFYtD pi6AMUenDArKTLKuQzxvB6d ZMVuxZkffP6zkET8RKBlkvS lxZXCyU9pZSEAeV4lSmY3PL WkAmf7AOE8YcRyxIGtoK0= CPT Code(s) (test code h3uohZAhWBDrnAP0LbTmIPW = 3357) zr7joo8YbnVTcfHCfBYwxgU SrcvJvvc71hXK5hR29IX9hH BBcCsE5RMYskoS1Jgg0TCGx KYYazLPzV702d4ugf9pqytZ xwQK8lYakBXOefbrkTzT7IR zwDFBhnbmmNLo3VHsbNOMbc NZ6XBQqlGDaP7XcVDSxAK8y uge5QET1EGzgQDPiGaJ0CAY dmLXlVQTanAfjIDplv981OQ K6MrHqWISftcBnwZqljS1mX tIvNNS3HVKvBEvdGVC0 CLINICAL HISTORY (test w2bpuDFjBMWypLQ2KxVfMGC code = 3356) ly3yms9SklBUavITwKTlaeR TggjRptk57uVG9nB83FR7iP UXvKaM1HSDjheS7Ewe3KLZr NHRuyUErW905r3xqa1dwpcR zpNN3aTgpLPDtobvpUrV5DP suCBFusqktLKn4KDsjGRVvq RB7WZIztYOuO1KxWAFePA4f swi5HNR4WDdhJHVeFhN5ZXD esZLtGXMscEyjGKiyt272MC S3JhMvXDHcxhQfdRglzH6eP dKeVYSAsTNknJvxqXY5EYMk cn0= GROSS DESCRIPTION v1lalNVuHAChzRLXJNKgP5z (test code = tayXaMXOyjJNoJ4HmcpnbCV [id number]) kgFY3sNQ6wgBgoqNJyxXUyL H5ZUSInQjYkZZIqeTOzerBh SkObARKakBArnDG6ZCDiJN3 bmioyHLcaKPgsWUDcmgH2VN PqfUHrU2MsLSRvRF1bsbdnJ SQ3GMgxfI2jfyPRIftgNh1l dHRibHtcZjFcZmNoYXJzZXQ uSGSrjSmlWGAuVCg8rC3TTm ppFAG4FBHYEnwjPOQwBS7Hb 3zbPJIcjFVnMGQ7LIvhpINa YFYzBLAyYMu9PJXaSJvnlPJ lTA7dbYniZpxktIokl0EeqJ BcXGlkIDUxMDAyIFxcZGIgI T2MMuIlEZQgOkS5GkFtXCu5 RYx9YN1PDoCyYQZoMQZ1QrU 1IGYjMQo9DJikPS2ZZHVvUq o3XPibBpN8XLR4AnBmSUMdZ iBcXGYgQXJpYWwgXFxmbCBc IX3hkLzpjKBtluDJFpXUyRY pQR23LrcfAXPfKUqtACAuS7 1ts6EFc0YpPU3SFRj8fpJpe bkymQ9kMBOyfwNeOPempQCl D7wzWrPgKKGQDVUfrYXtBJA mcmVzaCBsYWJlbGVkIHdpdG xmbAksDPTxkYbbdcTqM9K0j kDyOD5cWNFrEIYtB3CgYLGu T57rCLPniJ2aOYScPZ2nVCW fyQCkUR85LwMoqyCrKC9eVR Ong43zJnJViG2imVVyJAYqO HkMZJEaj6jlIN5kIFTtUHFs xY1rUC2sFGJ4bxbyLgE1Jnf naNM2ExRzgFPwWzHsQ86zKB NUqAFqLDV3uYAcINswCIsym 4DksKWbFQL7iLRoWYIgPNAl Sk33OMBMGkXNI8VxOMA2HRL xIEggTWVkdHJvbmljLCBJTk TiNUURH5AhWiVgUIWquz1pd mFogT55t5coVKUrVFegRQZv m6RoPgQvKt1nl2OjdXutudO rIOSiKXP8Co1grXWsVS6kqn 6icjJtasp7DyavsK9hYOppf G2gWBImLOetMSLkD3SfzA4t CK9AQzleYWDdLMSXS7XfP05 cbGluZSANClxwbGFpblxlcG jjXwOqbDGpXoQyqZfbdY67S BTdvEAyVBI7WV8wDHFedjfk UZYzGNArKZP8OBhamO43sUQ rFIEgDEGnrHTxcV8OIAOcOH R9UUnaxL15kMGhSB3INAIyZ JJ8UAVzuRPnTIT8HG9wwT6J fQ== MICROSCOPIC y6dpbMXmYGXtoEF8DtDmOER DESCRIPTION (test code iq3qoi7PlpNJpwZIcXAjawX = 3371) DlcdUlbp76xGT4dH90WT5tS CMnSsU5SYZalhV4Vqv1UUTn UUFejNGwS033c6qkz1hlkbJ faHT8tQvlIZPnggekEyK0NX gtZHAlqswlYPx3KKwqNNYss YW2OCWmjZCyY0XzMJEpIE1u bjn3WMO3NRhmEHUgHtQ4API diUZdIOZudXnhOPmka084EX Y0ByRaSVYqwcMtqJihnN7tI xAuRSUVk8VxXLBwpZlqVYOy QW5eSJriLSU7 Gross assessment was [facility] performed at ([facility], code = 2777) Department of Pathology, [address] [place], [place] [id number], Technical component [facility] was performed at ([facility], code = 2778) Department of Pathology, [address] [place] [address], Professional component [facility] was performed at ([facility], code = 2779) Department of Pathology, [address] [place], [place] [id number], [facility] [id number] 12:00:53 Test Item Value Reference Range Interpretation Comments Case Report (test code Surgical Pathology = 104) Report Case: [id number] Authorizing Provider: Jeannette Alexander MD Collected: 12/13/2021 11:35 AM Ordering Location: [facility] PERIOPERATIVE Received: 12/13/2021 12:40 PM SERVICES Pathologist: June Esposito MD Specimen: Explant, previous intrathecal pump DIAGNOSIS (test code = t8zhnDHzVFVbh9viYUUqaHU 3220) uZzEwMzNcZnRuYmpcdWMxIH tccnRmMVxlcGljOTYwMlxhb kZeVCEzsKUhA9PvdtwpOIzw UW3sLA9yoVgrzQLrqKWiGFK gBnUpa8ceh097hOSte2bwLN NLugsxfUf9rTrbQ88tf1V8Y bogY65rfGLiVPN5SXEzPIGw pPUaRGItGGL1FTIjqWMgO9k wBRIeZS2sglkgXVubZUtoQW EmdGU0NDLtxBErJ3QdCXDaW EonXUAdjvi5TrWqBl0wvQPm eTcyMFxwYXJkXHBsYWluXGZ zMjAgTUVESUNBTCBERVZJQ0 YvTVIYLz0BGTBIMKYMLeMoZ B7QZrVUCGAQZVrwLIQUFVIt NBANUU1UGPn6OWnlplQfPXG wTDZqCC4BEDrSFBxnWBQGJL WQSXGOSeTPZb5AQhMKHURLD ElGSUNBVElPTiBPTkxZIChQ LZADR9LrF0MNDGuZE2TUNZM UB5VKZNJHMC6VALsqTAYmyN WoaJhtvcPfXPeib3XwGIbkE CRzHK1coBljKBWsOY6jQSEt I6rivM3trzc8VlXtMUXhRlV 2ZRQweiS8Zub2PTMrSAmud4 zkj3IsXQJePEr6aCxwGlOuH UAsm7cmpxOqPoKrHVXmZNDv ZLHegSXgA497x9vmz4hbchO ryGN3VUQaTLW1NXnvkgAecg L3SEpocUJlEpS9AYymbbXoT DkqsdFwhcDrMuf7PZYdG485 NDR2hDcsj2soQLN7KQXwBVV wLdFuLp0tdRSyO074UCShBF YOUZAceVl0FAEierQgjbPhn ZMXr917N625p0toHILabuPz xYtGfqobs3yeV598DLUyjPB kalXcPxAzAMHqwZFyjZM7HD VzSE1qiarsIEzkMKidLLLla aD3MOSooWFnN8BqPRFpSJ4n ikdmAMK7OQlrUSHlUKB2UbJ vHQTxg1Wueyw2MaHnej1rhy 73WGK9r5NyjAmyLRY7XUB7E vTdHm7hdNRzPCTxUY6uIpKi kOOiHQNggd84dAepBGelNQJ 1QPHdihPzl5Uzx3wpKgOvle TaE0mkJ1FxENLyWJVeSSIcL kGanbUnb6Aao9PrmKOtdBp0 o1gvIOKyPEBxmOyix4meKHZ 2HEBkxIIrJ4plqQ1mLTOnHM 7tqiquf8rmXIzjVCwzVJFfg VM2rxX6NDWamSIcM3OzsR5b XPNlNEjqZSCmfiv9JwYnVu2 vdGVyeTcyMFxzYmtwYWdlXH BnbmNvbnRccGduZGVjXHBsY WluXHBsYWluXGYwXGZzMjRc cWxcbGFuZzEwMzNcaGljaFx aTBqoJrObEEHwPTkkF3amXw LzSzKxRci5VUKnoSNaAQZnJ cd9HJGjyOJdOPEZoRyqoG5l RCXfyQnqdY0dfDB9YGLdynY ciOGGzG5hGEWXtR9qHzG3SC ZiCxe0FTU2LhSlbIQffX9= CPT Code(s) (test code u8rznKYiHJUkyAJ0JlZePXP = 3357) bq0hsz0MlkIGubMNlRHxjzB WausRnuu47mIP7lC20OR2qS RJdQnY0TFByzeQ9Hzc4KFOw CVKvfHPiX006h5utz0mwcrF feUH5qKbuSQTxqmwdOzJ8DZ qoBLAhodfjSTn5DEzuHSHhn GZ2RNKvoTSpO5FsQHSpAC3z bdc5HPG6FTmrOREdFlZ7QIR buOAeHLJlnJarUWngr302SW Q2UkOiDHNjwoVnsCfzaT2hF qPcIVD5NXPwKHvuFFR6 CLINICAL HISTORY (test s4dxmRNuNHGouYW8KaLsQZW code = 3356) vz4why0JodWWczHMwVIfdbV UgjwEjjs83iLP4hN53GJ8oQ ONpZqH9RINdzeR6Dit6NKAi IQFpjXPmD670d2elf2wclbA dcRK6lNsnNJSwmpqdPwH8VL nhIRYcubhdYTs2YNfaAJOkp PS2IPCuhFBjG1WaTFVwTH8o tyj2MYW8NZgvQPBxBpN8KEW mtTPmIEOmkUyaMHxrs815LT P3TwUgSHBwjhXniVebuB7dQ yWmWMKJjAMnwSvzrSE1EKRb cn0= GROSS DESCRIPTION d4hepLKlWLShpMLWJHJoC1l (test code = rkbXyLLLerMGpL3KrtpogKT [id number]) oiZC2yTS6dnOzphXOyjYMhD X6IEGVmJaKmRQCzcZWtpzRn QwBoCDSohICouRH7TEFeIW0 okaakLDkzTFvbOQWatkZ6DB LppCAyO5BtTRKiBA2xjsnzQ RV4QLvdaX2gdbJXVbknOz6q dHRibHtcZjFcZmNoYXJzZXQ mYKQqwGurYLLtUWd9pH9FUk ndSKF4MJPTIdlwTPTjTO0Xe 2zdKUDikXZeFOE6RYlbpFHd UNXbXWIrGMs8XNLcNRqheGA lVF4iaRuiWlthfRwuk6PvcD BcXGlkIDUxMDAyIFxcZGIgI P7NArDtBHLyDrJ1BfAqGDg7 WXr2OP7FOxKqGEYqCKY5KpO 0CVCpIFr8YCizRC4BEUEsYs g2VKmeUrP2BBO0ZlOyKZMxM iBcXGYgQXJpYWwgXFxmbCBc MC7kkPpvxBTyrgWYBzPWsTB jEE38HlaqQDUvXUhaDFUmC8 0hu2OTt3LtSL2WVWr2ifOuh kwamQ0dPPKncyJyCGkaeNDu A4skSeJxNNYJPTUikUDcMXN mcmVzaCBsYWJlbGVkIHdpdG ykeBmvIAZrvOunepWlS1L2w sSuKS6gUQFyVMNcM5IaSTCk O77tGPWkfB9jOJLnMK1jTXA tePXaSX05AcTudtBjSH2dBC Ooj97mHmNGfX9jcPRuJXDyV LlAZCHzf1vcMY6iHZUlRCZv hW5pCY8dVDO3oozhCqF8Vtz wcCL1PaBrnSErXiDwB41sQV IAvWEsCUE9qQGvRKvqQDjgl 2WidWCoYSH8qOZxLLZjAZJg Os20MIPMSmKGC4WmDZJ7NIE xIEggTWVkdHJvbmljLCBJTk IkUHEKD7VcHgOsCKCvkr1ee bXpiL35l5fxRBOyHJihYYTt n6VkEnRsRo6gm7LqtDwnsrK xFJWjTGT9Ej1omZCdHQ6clz 9seqEbspf3UiyhsX2jOKynp P8pGZPuFFdxWSSdC2EhaB2r EG3FIlzxBNJwJNIKH3NhZ36 cbGluZSANClxwbGFpblxlcG jjOpHsnCUsYnHiqYikyR66Y ABqeUSgCQQ7EH4kDNViipob BWOjDOPqEVP3PVubrY51kBJ cBAMeKOEmwXPtcD1JRROhVJ I6WKnsbH03cQVnDP6YSKUyI FC9MINjnBDaNCV1PK9jiH4U fQ== MICROSCOPIC p0plcDEvUPQprYS4LnZaNMT DESCRIPTION (test code so1iyy3AjaZWzgGBsCLeniG = 3371) LkjpTeju14hWF9lW51VD0gH EYcLyY4ZYJnzhH4Orh5SMKs CUFbyYSfV153q6ify1kddhI bpGT3wVftRUKyitnzXxF8FB tfVKEqwpntEDg8GYwzZIXzo BB3OIWxjIJoK2QjRREjMF0z eqx5CQZ8UPtbRYFwVrC7ZWT jeUJsZRNrfAwcAQths509JJ Z4VkCwDOQtjhIhfJbhdC9pS hQkMACIl3LbYGSmrAjvPVKi IO2gWUyeZFM6 Gross assessment was [facility] performed at ([facility], code = 2777) Department of Pathology, [address] [place] [address], Technical component [facility] was performed at ([facility], code = 2778) Department of Pathology, [address] [place] [address], Professional component [facility] was performed at ([facility], code = 2779) Department of Pathology, [address] [place] [address], [facility] [id number] 12:00:53 Test Item Value Reference Range Interpretation Comments Case Report (test code Surgical Pathology = 104) Report Case: [id number] Authorizing Provider: Jeannette Alexander MD Collected: 12/13/2021 11:35 AM Ordering Location: [facility] PERI[facility] Received: 12/13/2021 12:40 PM SERVICES Pathologist: June Esposito MD Specimen: Explant, previous intrathecal pump DIAGNOSIS (test code = i0opxZKrQPPxp7umSWHirQQ 3220) uZzEwMzNcZnRuYmpcdWMxIH tccnRmMVxlcGljOTYwMlxhb pAnKRDegAHqG1VyxnogAJls YE5aUL2ghFalbSDvqGRvPMN qIuRfx1ilq175qCStw5whOP SHesgraSo0tBgaG58sd1V9T rchR61uzESzKWL5LQIzSQKs bXEsAAMuTZL6LHHgyZQxM6r pPRCqRF1ufozhCHbrNHduYN CtdUW6TMJbyFUhP9WhPSAlM YkfALRyimw2UyUsWe3aiJCu eTcyMFxwYXJkXHBsYWluXGZ zMjAgTUVESUNBTCBERVZJQ0 NwVXKENd3IBVZPKEBRGoKiU R5DWaQZZRCNAJozPUWRHSQk AGWXGS2LWBf4ZJsanaNvCSR tQMKpBD2OHKiMJMrzFCEXEU RQZOXWWpXXUu5PTlKSDDCDE ElGSUNBVElPTiBPTkxZIChQ FQUYN3ViX6MYDNwIV5VLEAS IL0ROXIINIQ3DTHfcJMGdbG WhpCawvgQrICuul4MuUAkhV STxEY2sjYczQFWcOA9uYVIs L7hmrU4ivsc8HzCuKQDoNjF 0AGUkdmX8Cww3TRFqLUcdh9 vnu2DrVGLuOCg1pGesYvHrJ CSjt8ryivHoEkBpDEVaYZNt ROBlgVCnS916x0qec3vbjnE vtJK8JVUtIMX7LFjnsfMgjt Z4GQtzkEBuGoG1VOlfqxOjK HkzoyVjmpJjPgz7MQUlN107 XJZ3aXpci9fbMJD1QSXvVHX hXeVcSn7daBSjD748SKNvCZ KMUGEvvOa4ZRRrniAnolRws QASx869M029e5pwTKEwszQf tWmNmnctg8wwM873NLCzlSG cigIsUyAkKGQgnKSvdBK7YU GtIQ0cagorXOleKYduXODkq wX3ABEudEYuE1PrJVBcIB0r fkdzLEN9LLgxRNBfWUE4WcT mUWNyd5Ufcch2MnBzky0zrr 72AJJ4d6EisYabNLN6KXT9G eEiQd2fsTYqPBIaZE5bCsDy fJCrIFOtya72uMvfGLkaGMH 6JFFwzmGod1Ltt9ekGyNanb QkS8pkL9UbSJMxXNOvBPJzV iMdbgAfj9Qoe9VglTJsgYt0 c1hoWSZqMZUhvSoky1vgMNV 7DLKepJHtK0qnsM9vLCHbME 5hhqzif7txOYbhZUfpPTMtl AB9xrE8EYEuxKXvL4WntQ5q LIRyISnkVNWhano5TmOhCp7 vdGVyeTcyMFxzYmtwYWdlXH BnbmNvbnRccGduZGVjXHBsY WluXHBsYWluXGYwXGZzMjRc cWxcbGFuZzEwMzNcaGljaFx aFFrfKzKzVVZhVSjnC5nuWp OdGmTyUyc8RBEtwGYuIKGqQ zf5TCLaqKRnQEEOhGsiyC4y ECFoxSopqW5tyIL6JDXiogO spLSBlI4zXIWJiY2nNlQ4ZY UmQcy1WDZ3NdArlJUkrH7= CPT Code(s) (test code f0sudHOxCHIelXV5YzNkWUW = 3357) mv3vhv4CfpMUpgVNiTGcreK JsyyYdaq90lDY8lW65BE7fZ JBxPiO1CKSkfqW5Ggu4RRPu HVWkmQZzH295z1qyx8pbzzN cjVA2eBvkOXAoxpspVnH5TY gxCYVoyzodDTt0BPrdWQEpb XE0TMFitWMjZ8IeCYZaVI4p ysn6LVZ0WScrLVLuKlI0ZJW feHBsHFXrwYqiYSsrm979IF L6HiAnNTTqzvSfiMhefW2sN mUrFGN0SNPtMNfdVVQ7 CLINICAL HISTORY (test z8eirBJdLJVmoWK6CpKnDRF code = 3356) yb9cre7CjbDIrrGPnTQlfkQ ZzujMyra57lVG7oJ23GQ7dO SBkVyX9SKDjpdA2Sef6RTWb VDRtjYWzA871r4chq7cygbE siGV2qEyeUPPdmfmjLkV2KU ouOHNgbvesPAv8JYukYNNnr ZW8PUWjlWXqJ9SxPIEbJC4l qsj5KCO4DOaeOUAuNlZ0OFM ouQClXKLdoVykGEbpn638WT H2PdNwLYXovuSegCbguO4aY lRdAGMFmCEyjGssyAO0YLVw cn0= GROSS DESCRIPTION r8wveCWgPGEsrFSNTZKlW1w (test code = meyCaMMZbpUAgE3LpxwbwBO [id number]) opZW6xUA0huLwqeTSuoYTrO O5GIYUpOcWqXBOzrWUotgXg EqZzDQCafABviFR6VQCuUY5 shbgzHGkhLHpfKVXwyiD0WK CddXVyL2LsJFRrCI4adcdgK CO9QVcjqL5gfhYDKcguIe8j dHRibHtcZjFcZmNoYXJzZXQ xFJJqzBadKUFuVBu0cZ4IVo jgGKR3UVHZJtxcCHAzDA5Qq 8obYVUvqCCoFPT8PMojpHZt ADMwVMCvWYv9ULQnTVccpIS iOQ2kjCvvTmpcfHclw1RrqZ BcXGlkIDUxMDAyIFxcZGIgI J6QCcZmDLRcDcH3NwGhSLn6 COr7ZK5JYjEnLCZgSOI3JgU 4AKLpSCo8ZNapEQ8ANYCcCf f7OMutYmY2HZA2OzLpBFQbE iBcXGYgQXJpYWwgXFxmbCBc RV5huHcilNJhsgWRHgHMkCW xUS44KxdhXKYeWPwrVFZgG0 8dt3WHt9NkIC3LPPg7svRlf ohivB7iTBVccaZxLKglfRVe E3paNlMnGHVRNOGorWAzPVO mcmVzaCBsYWJlbGVkIHdpdG dvnMkwJRVzvOjkadIcE4O4j qToTQ7hPVQwJLLmW4PjLNKf Z82vBTZbaG5sYDTaRB6fGKC ibYMhHP69IoWdzbTeCJ6gRJ Dzs62vEjMArU8ssHOvCLQqX SqDXJLoc1etIM4cTRClBACl qW4pSP8fWUQ6ajhtAnE6Wgu pcZG4KrDkjJUaZrHeK97yAZ OSeCTuOFD8rILiEKkeFAnrw 7OxgJUiEPD8gZNsARTiTECe Hq26DZRCSkHQB1McFSO8MYC xIEggTWVkdHJvbmljLCBJTk QcXCSCL8ShHtYvDERvcs6bu hDchD20z7ogQWHyQGsvESPy a7QmHzEcUn7dy4DibYgghrF bYASeLWJ4Xw1yuQCwTB2npm 4logOjzfv6CcyivO1uQTagg Y7tRGHsDFzpYMUoV1FfdN0i IO9FSrzxOUAnLOZUP8WvY28 cbGluZSANClxwbGFpblxlcG lsFoBljXKcHcBouRfzoM70Z KRpdTMqYAL2VZ3tZEVvafcd CJAmXWBjLYF3FMljxT04zQU fHNXeNGShpKVfaC7ACNGvTJ N2DWbbeO44pEVqTH8LVWDrU JF5WTWjyUBhQFF4CD8cyR3O fQ== MICROSCOPIC h8iwmBKjXGHfuYE6TcViLDC DESCRIPTION (test code nr9hch9OhnMPqaJIpETdgwM = 3371) FppwYttj82nNY6pS70UX8mJ MUuGeE4PNGvxgA3Hvq4TKVl XLRpoVXcE108y6zsl9shupX esYG5dChdGBFrxgydErX6QZ wyZNSgtltpOVg8QHdnYDVkr UJ3CXNdwUBuG4YfOYGwQL0l nrp8ZGX2MTkvJYRfBhK4NMS suMLjBZTmzSdmWKqyl976JO K0SvPdGSHqkyOevYfasN4rP gFrESOMg6XvPETwtVqqAKIr AY4rYOfxZDI9 Gross assessment was [facility] performed at ([facility], code = 2777) Department of Pathology, [address] [place] [address], Technical component [facility] was performed at ([facility], code = 2778) Department of Pathology, [address] [place] [id number], Professional component [facility] was performed at ([facility], code = 2779) Department of Pathology, [address] [place] [address], [facility] [id number] 12:00:53 Test Item Value Reference Range Interpretation Comments Case Report (test code Surgical Pathology = 104) Report Case: [id number] Authorizing Provider: Jeannette Alexander MD Collected: 12/13/2021 11:35 AM Ordering Location: [facility] PERIOPERATIVE Received: 12/13/2021 12:40 PM SERVICES Pathologist: June Esposito MD Specimen: Explant, previous intrathecal pump DIAGNOSIS (test code = h5xxxDFxNTPem0owVQZihYK 3220) uZzEwMzNcZnRuYmpcdWMxIH tccnRmMVxlcGljOTYwMlxhb vZtPGNtjAOyO8ZzybtnMMlr BR4eQD8grIaxhSTtsCEvELM tThAvb7kjw973fDEdd5sdSX FGvqsnwDr2mYpvM93pl3O2R nzyK25mxGVeOEZ1ADQxYRIm qDWfFKIaKST3CVYaxURgR9d eHDInRX6vugtsJZunBGpbUM IokPK2DECxeNIqG2LdWTRwH IrjWPWwear1SgGfJl6qnZTc eTcyMFxwYXJkXHBsYWluXGZ zMjAgTUVESUNBTCBERVZJQ0 PuRUSRGc4OCZEZOGCVCyFnR B7DScOGELCYWXpmYHVMQZIw HAPYSO6HAYw4CFguhjJmUOD lIAMdHF0ILVrRHVioHSAGSB XITWZPVxRTFb6RIzSVBGGUR ElGSUNBVElPTiBPTkxZIChQ PDXMO4QeS4PKGCgVK6PCCGA RC9NKDIEVSO1TRJsdHVAqfP TkiVutpvQoPPpoq5QtUQvcJ DQrOX9ogWckJKIaRY5gOFXm H8iseX0ofju1UkTbEGGcEqU 3AUDnchS9Ikx8DLOzTVtte1 ikh3OcQWDlQLt5uSjtZfMeF ETup9kkqvKzPbKlUZImELVn RIRwrQLsQ067k9xuf7iedtT dcXX6JXYjVCU2CSopsrWsuu N0ZLsevJPjKmZ6UIdazxEwJ DlcwmInteIaWet0PZMcR046 THO5vYrwa3axOEF0LPRfJRI hDjVtRe5mkWRyQ052HDKpNL MOLYByjGq7GJSfflFmzgGgr OAIi495U461d3tvCYEpzmRb tLbOnqqul8vzW821PZSozAD bvvQmZkRlDDPvxNUkdTI7HQ EnUH2puvbtQHcmKOleTABck dE2BIZqlHPcF9KcMUDjMG6l pkfqMWA0CBbaKLWdNKL2QnS gVWDqg8Felam3LnNtfi8tuk 55BQH4w0EhwEhtLTK2QYK5Y mIyPn5toXWqHNRyRL6bHsBz zNGpDBFlzj22kPzrNEogLNQ 3QZYlxyZvj6Xlc3uoWjYskn ZrD4fnW6XyGWMbMGEoJLKbA nHhehHos9Djc7DeaGLoqBl6 d2pnZFRsFASdnSwqu5blDQC 4ODZspMVnL4eclA1wVLYvTI 7prtkww7yfCDmaTJtzNIIoi IY9ioX2TLLqvOUrJ2KyhF6x UPAgVMmkAERqpcq9FaSxHs5 vdGVyeTcyMFxzYmtwYWdlXH BnbmNvbnRccGduZGVjXHBsY WluXHBsYWluXGYwXGZzMjRc cWxcbGFuZzEwMzNcaGljaFx fGNklNhYxZCViOZgmG5xuRq AlFfAbMvc1EMVvyUMfQHGrI yj3JIJbgLPzSJFWnAapoW1e CTPhjWtcmL7twYH1CPZbcsK frQVUiW0kEIYNiL4pMpZ2AX WnCkh3PJL8JyRmuHBwsW5= CPT Code(s) (test code i1ztuEDuMVPujPM7EmHnYYK = 3357) ne1uyn3BfqGDeuWGxEPsehV TxrqTafz94gGM4hD53DH5bX DErZwY3LUDfngN3Dqo7RLWp SPChdNHlK789z6zpm7zzuzS gkUI4dPssHAGfhjcdRxB0VR viESMfzdwaDQr9PRjyWGPgl EZ1HVGzgERjO2TzZWBnTZ4p xhd5VWQ7KDvgVDClVdW7WIQ drONgHGBmoFepCNpdr909QH O8CzTbWSGbfjKmqTohpY6cN aCxENN6LHYcIDdnEBG0 CLINICAL HISTORY (test h6lpaCYxDMVtdEP2IzIkRZD code = 3356) dt4yfc7GtbAFloEVtOAihbQ ZvnqQzfh56uYM2sL21BB7vY VKhWsQ3WMDckxL9Fso0KVIl JSJrxCSyD812n8xjj3mmnyC qqSS2sHgdOBLphfcwTvX5VE trOCJgwujvPBv1BHepEDAxc YF1AXLouIEuG3UyZHVcMZ2x mxb1KBT8JZfwKZZfEhI6PDI qkZRrGMNmcEqhSXzpl896WZ W4XqZyHXOipxKkdObayF0pU uTxJOVElAIgtCtjpAZ6EFFv cn0= GROSS DESCRIPTION h3acwXWpKASbbMXCMTWiR4y (test code = urmAzTCFijDFtK1OfbcpnEE [id number]) mzGI9vAL5wvEujcJIroNBkT I9HEYAxBpTqVBErzXGtocJo BjJwVARmaTSzwEZ6RXXkQU6 stuvaIZnmTQlxEBFaazM3FN TioWAnC9PoNNGmBG6lhskhQ LP1APjudL5hubURPtnwAy8t dHRibHtcZjFcZmNoYXJzZXQ bOXNzqWnhYGAbXOq4oH0JWo hqIZF2EUQSRcsoGGFvHV5Sf 2ifCKPzkCIlSBY1IByixGQq GRTvOYIpGSh5IQZhAIcokAM zDO5lqKhpHemqtJijt8XwaO BcXGlkIDUxMDAyIFxcZGIgI J3KMlKyAFZcQdQ9OnGgSFr3 NLm9ZC5SXiMfPNXkZKB7KlD 9YTPwMKs9IIalWG8OWNRkKk d1RLziShA8WYU9CkGeMEVbK iBcXGYgQXJpYWwgXFxmbCBc PW0xyCnsjIYafmXCAlLGfKM lIF93BvqgVTMdVUicDNFhQ2 1ju7UTs2FbNA6XPSa8zmPkd lhifS5qQQTczwNnDTmpmSBk W8gcLaEoINWJBROfnIUnHWH mcmVzaCBsYWJlbGVkIHdpdG fgpJwfCQTinXuaweEtZ0X4r uTxAU6uPKMtBPAbW9JvKWHd P96oNNEawL4zBZLoHH6lTPT vgODsIC08GjOkodUhZV4fZY Nkr51tUoQBjR6lxJBySLAxO GuFVLOjw0jgST9gLMIoLJYw iX2gDC1sAQF5omlcFuA0Esi koGY6ZaKmgBAfHzDkK79eXU FZiYFiBRC4cFHhRRhoPRbjg 4XdhLZzFLH2cRTwJLNtDTNv Oi80FIFYHfCZY3AaYLN1ZYB xIEggTWVkdHJvbmljLCBJTk CmMTWFP4LwOoSxRQTryx5uq eZlsN59n6qrBCHgDPueBTQm u0CjCgQwWw8kr2OfpZdzibU iBBPqDYU0Gq2vsVGuTN3foj 6twbNrngw2SvnebD3zYDiew L5dLMNeLOzwFBHxX4SwhO6y CZ0XSfxkKMYoQLYAN4MoO14 cbGluZSANClxwbGFpblxlcG bnXiUcjUApIvKwyGpsdE08Q SFsaPPyOGA4JF1vHHAjhxuv QGUmCVNnNQM5WLqyhU20jHH dQOOxRRFcbKNqrD0YYRPiUV U3ADeloY59uIUzTN9WOCAkX QI7IQAgjCPcIJP2HS8sjX8R fQ== MICROSCOPIC c6uioHNtMHDrvGJ9PzFwQVN DESCRIPTION (test code ro9lxw8TjyHTzqPGoXQjqcO = 3371) XhueEqhd03fMP7bK43NJ6dK IGtFrZ9CURynbI2Obt8WKSq RLFgrRIeV629t6kjj4kxdxO fhNF8xCtfTZAtsxroHoK1RY ezXLTyuxfaQBs3PZeqHFGoe KB1RQOpoOQzA0UxGBMgQI3p wwf9OOQ4DAyeQHIjByQ9KIN peOWoNUMbkGknGUhab274GN D1ZqFjYHDftaObfQrflV2nN dDeOSEAo0TgJHFaaKazPOKb RK1zOEnqXGW2 Gross assessment was [facility] performed at ([facility], code = 2777) Department of Pathology, [address] [place] [address], Technical component [facility] was performed at ([facility], code = 2778) Department of Pathology, [address] [place] [address], Professional component [facility] was performed at ([facility], code = 2779) Department of Pathology, [address] [place] [address], [facility] [id number] 12:00:53 Test Item Value Reference Range Interpretation Comments Case Report (test code Surgical Pathology = 104) Report Case: [id number] Authorizing Provider: Jeannette Alexander MD Collected: 12/13/2021 11:35 AM Ordering Location: [facility] PERIOPERATIVE Received: 12/13/2021 12:40 PM SERVICES Pathologist: June Esposito MD Specimen: Explant, previous intrathecal pump DIAGNOSIS (test code = q0vzmLTkDHIvu5ovZOLvrZW 3220) uZzEwMzNcZnRuYmpcdWMxIH tccnRmMVxlcGljOTYwMlxhb iAqQLNlyNUqN8BjtkhqMCaa OZ7hMP1agHjcpVXujHEhWYJ wQmEai1zda891mEXvf9smUQ ELevyttPh7bYphA54gz0O6Z ydvA41blLFrIJT0KTHzDFJt kHDgUWFyAJH1FERftSAkO8b bODXjSD7vkbcvZTbpXCzeOS JnqZU9ZWLenSEgX5JsDTVwU HueLHAczhn5LrPlPg2mxORy eTcyMFxwYXJkXHBsYWluXGZ zMjAgTUVESUNBTCBERVZJQ0 RaUHEITc0VDRYEDCYNDuDrJ L2QTaDZPCMUNTnaVHKQJHRy LYOWWY8HTXo6XRbielThIIG mIVLqOJ7MBUzINKglUWBWHW PYUCIAPcSIHd5KOhPVKKIIO ElGSUNBVElPTiBPTkxZIChQ TANDJ2FpP1VHFFfGT3ZHTKE BX2MMWWQDHE4NTImzWBFreR BcvIoihjOuEOfth4ArILiuO GYiBL8ykFelJEXzLB5sABHk N2otrG2dbvd7WmDiPZFmMfR 6NCQbjjN1Yfb0XVCvHDoum8 tcg4LgWCFvKQp2qYnlBmFsK JZqm0oomuEfEnTmNAWuWKTn ZXTvmINdA096e0hga2mwiuH msYN5AQViJAM3OWmlnrOdxw V9RHuvvANbJvC2IRippvRtV CjeixFkorXvJtd3MJUvU601 SWU9lDoer3ftUGO6ULGjBMQ fNfDkHk9moCJpX903TIVoMW RPRURbwOn1RJEtppDmeoVah TWQs932Y932c7rtTOAuplGp nAwTkpehj8orD940RDLrpUC tnzPeHuBtVKVisAKecFZ4YU XtMA3vfggiXTrmSXamQQFht oX9WMBffQErF6OkFOTqXZ2a bpsgWPV1SEamKCKwWXP0VaY pDHNqw4Bkrdu5AvDhle3qpr 70EOM1j9ZtcEdaKSY4FQF7C lGcLs1nhLObTOZxEK1aUbHv tLVsLVDkdq14jNgyMSuyGFX 9MSLzflVtf8Mse6azDhAmcs LrC2qxS5CjFXAxFJEiBVGpV mIjbvVaq2Hll7ThzOElvNv2 m9sdGAQkKWSpuJnfc7toPRN 1VHOywGHbY0agbC3jMVOjMV 8vdqavc1qrPOkoNRbhSELbv JG7zqM5JYPqoRGbR8VjqC9a WMRnAPpeAMUqiaw0MdVoIm7 vdGVyeTcyMFxzYmtwYWdlXH BnbmNvbnRccGduZGVjXHBsY WluXHBsYWluXGYwXGZzMjRc cWxcbGFuZzEwMzNcaGljaFx sAPigXrEbHKVcJCyzA5eyBs VsYvYgPtq0IIDxlVUrPCVoT hc9HORshABrUYHIkFnsiE0p SFVtrOmavG8mgUC9ZEWunwP pgEMSdZ1iCQAQpF0eXxC5XV KbKep4PGJ9OhIgwVOpnZ1= CPT Code(s) (test code c5iogTQtNXJqgGK0CtFgGZP = 3357) gl2jsr9NndSEhvACiMXreaT GdemJmxk80gYE1xN93HH0mB LIgDzB1WPFegvT7Yno4RLZf LFDzcZLkG960q6udi7zbfrY xyMZ3cAamQWHtgmluEoH2WI blQWSwdykkGYo3TRjmEBYtj WB1ZTOspNRoR6LeNRYaPU9s onj7JWP3LQubNCBkGbH3VQN vePWnCPEvwCxgCJnev664TV K0YpUfVESbwhQxqStmkF6iT fPcLVB5QKCwUNlqACO3 CLINICAL HISTORY (test m9zkmBTgUXDosOI4OxWmPTQ code = 3356) gy3rvo9FqrAMtqUAlVGdtnA DudsHgdd48qIV1kM64AE8wC IGkGvQ7WENcsfF6Lzb1FUGe SNDjtKBhP562q1xge3kckiE teLX9fKtdDQJukufvXiK4NE niXWEolcteACm4JQxkJWCfl QS2FAZrfGJvL3LlGQXrQU7d mjh6JJK0EKcnXIHjRtB6UPK xpACgNAAgaYkcSWfjv698JP O5KcNbRGJysqWqxHpsvH7fK mNhCKJKcNHzaWtkdSK8SYRl cn0= GROSS DESCRIPTION j4ebtTQqZIOzsJMAYIVfC6x (test code = ufpXnRLFasMYnJ0KqakqoBZ [id number]) daAX4iGF6feEgrdYHwaHYzM V4ZDTVjYiVsNMErjRIrzxUq BcWpYRVqbLUfgUV6UPJqCU0 nyvjlHRxhBXxlXTBclmM5UG YtxPBrX7WmSPHxZO7tbeceY WB1JOzslL6isgVRYascKb0j dHRibHtcZjFcZmNoYXJzZXQ zVIYztYgzLFAnFFn8xS2DNj igZPH4PNILSobuEGWnNS5Io 9bhUIZjcBKmIOA2QVyjrPIn DUYoNUWaKFy5IIAzEUphtWX eMN4vmLegUawgrArpf5ScwU BcXGlkIDUxMDAyIFxcZGIgI N8RIuGeMFAjCiD8XvRgLEr0 VXp4PP9OLmCfURHsSTZ1ZgL 0INGuCVz2QEmsDT7IXWSmPe q7MByeFzI1VXJ9WlUyINWjZ iBcXGYgQXJpYWwgXFxmbCBc XV0myOptlEMxlaWNEuYUxDH oJT23VydnMWCsGKlvPKGbN7 8cw2RQu6JxZE5LASn1oaXhi cztqP6kCIFcwkIqYRojhOHl T6chLnXhQLWVPONpbCReVMW mcmVzaCBsYWJlbGVkIHdpdG zquTcvWQYtlBeyhjEvM4P5c gNqLB4vIWXtGTOpM6MtVDTq C06yULCprV7oQBQnAB2lZZK egIBzNE92OqXrqhPrFV1kIK Uzu78hTeMDsZ2hgIQhZZOvY HoYQFMyv9usBF7rCNPsYRRk fB7dHU1tPWX4oiwtCrD1Ald tfCQ3XqRfuDMbWvBfG87bNV KRdYReSPP1iNKeQUodHZfkn 2CjaAXjMFW1tJHlTZAhYKCo Hv79RUYKCtRKT0KpRCI4QTV xIEggTWVkdHJvbmljLCBJTk NaOKYBG2EnPmBcRHZyae7oa gFsfZ02q0pfBSZcNIpcNDYi u2DiGdTeNd0ga0CbeOehemQ xYMHiRYN9Qx4nyCJzPK6imz 2nadNjffh7TqtfoR9zQCcjl I1hXYDjEXxxIVGuI5MkeE1m TB3QFwokJVBiTUHXR4NrN18 cbGluZSANClxwbGFpblxlcG ulAnMbuOFaYxBqlAbyrD05A HPvbSNeZSY1TD0iSIPrrsym OVQoSEFkBBJ3ZCaznM71oKH wXEVlHZPbtHYuzC3YIIRqGY H9NPiebY98hYVnYE7UMWZoM XI8MILdeZMhBYX8DK3drG0M fQ== MICROSCOPIC o4kprQWyJLNpqAG1BvXyXME DESCRIPTION (test code de3wyi5ScbXCciOLcFUdzjC = 3371) SbntUwec08iNI2wZ62VC4vO QJuIuC0QSDvsfM1Bfz1GEYw TNYtoNHmH691q8rho6usnmJ rhYF1bJkyXGQmfkenYlJ3SM evZLGyegnlGJe1UIfvURRgh OI9LCOuaRBzI1JgFUTkNL2c anv6MMN0YIauNVVcPjS1CUT mcJGoZBJwdKbmUFsit567WW V3KuJwFERdheCxrFsnnK4uV wMuPLANj9NiVCNpjGfxUVLy TI2pKMjmVKI0 Gross assessment was [facility] performed at ([facility], code = 2777) Department of Pathology, [address] [place] [address], Technical component [facility] was performed at ([facility], code = 2778) Department of Pathology, [address] [place], [place] [id number], Professional component [facility]. ke's was performed at ([facility], code = 2779) Department of Pathology, [address] [place] [address], [facility] [id number] 12:00:53 Test Item Value Reference Range Interpretation Comments Case Report (test code Surgical Pathology = 104) Report Case: [id number] Authorizing Provider: Jeannette Alexander MD Collected: 12/13/2021 11:35 AM Ordering Location: [facility] PERIOPERATIVE Received: 12/13/2021 12:40 PM SERVICES Pathologist: June Esposito MD Specimen: Explant, previous intrathecal pump DIAGNOSIS (test code = w5kxhPGxFKAjj0cqKYOvgDN 3220) uZzEwMzNcZnRuYmpcdWMxIH tccnRmMVxlcGljOTYwMlxhb hTpUMPdhUFkH2RbgffbDKlq SV1dHS2hiYcsuURocHAzDOB aEhDsx9ewi756cXDbn2wkAR GWosufaKv1bAlyU26em2G1K ywiV34evNGtQOT3HHNbXLCf tGPwEYZwGCY8OBDtpYRxI6g xXAZrIB6ifietAJzuCQrtDD ZgzTN9TVLvmOFqO5DcUVHhS RetJDDhmzp4PqBzPr0ilHWy eTcyMFxwYXJkXHBsYWluXGZ zMjAgTUVESUNBTCBERVZJQ0 AkRRZSIm8VJNYRVAISYoNrV O1JCeORFLOAQCxtHPSQOXBt ZYDBOF1LXCa1XZsrnlUhFCM pIFLmNV3YQEaGVFmpMXCVRQ NTNVSJGgJBZy4NCdSZXRQCZ ElGSUNBVElPTiBPTkxZIChQ HNQWG7HuT8KVKVlRA6HWVAB XW6AIPBYPFE0WZJyfAVDpcY LhxGvamnScXXsed1XfNZocY BGnMN8utDsiUKWgFD0mHJXl G4rwgR2lmdq4ZfLxRNTfFwH 9RSGuopL9Pdw2XWEwETbma9 bkk0PqPJNkFIz0xIlqUmZlF MKgg6yavbVkKtRbOBRbLGAl JEZgbDSxC727c6lma8lgdhF wnKC8NXLyYNW1FDbaprRjlp Q3TQwxcTCrClI1ZBchmvMzZ LenpcNzlrOxEwj3JOViL722 OXJ4hEpdv9vaEBM4OANjOPZ bSbEpQc1wmLKtY906TJMvOL PGASBzdIa5BGJiblJllgQfr IGWl664P222m8tmNLLoikQd nBpRoslga1ttW553ICXznJQ nxnMhRmJrFPIgjZEomGK8GJ CoER2hlfdhMSghKEbdWGMcj lH5HVLiqEYgA0UpGUQfUH7p lkcmRRX3KFufFOTvGSS3BnS fEBXai2Qzgzl8FpJqly0iex 30CYL2z1VvtIlqMXK7GFV1I pCgDx3ryFQaIXMdRM0nYyCn uBOfAFArpb44dWclGQwmBEZ 1JMBoyfQxq8Hhl1kaDkYolc GfW7kzQ7RfGZGyTGFlEUWxN zLnekWyj5Pic6CshLDfrMa5 n5gfDELcQVYdoQgze3gyRFW 7UYHvqQAcA1sbmE8mHDIrDE 8vmugzb6nqFMjcBJqqLNYmi NY9idW7HTOquYJgW6DqiY9g HJGnGZaqCYKvkfh7DxPdKd3 vdGVyeTcyMFxzYmtwYWdlXH BnbmNvbnRccGduZGVjXHBsY WluXHBsYWluXGYwXGZzMjRc cWxcbGFuZzEwMzNcaGljaFx nMPvfZdUgLNVsFSomX4yfYz FnLuWdFou0IZXjhSCaMBMbR yq5WGEpoPMnLCEXnEeecH8p ADGorSjyjB8wnPP2NSCbybO lwIVOnL6iNBIPcA3yDpQ6WG HaSoz7GZV3BiLvbWEgzH4= CPT Code(s) (test code w9gvhWDnSERtkHB2IsJwPEI = 3357) bo5pep0VkzUYspPOcCCdknI TagfUspq98nEN8aY17NJ7oK LMoMyR7YMGakjD6Cgm8CQYk IHDavEHmI895l3upl6gdvaP qfZE4iSdgQTRcfnwrVpJ9MS mlWSAshmtlTNw6PAkrRMXjf BR1CLHspIZcW3WnXHTbJD8a edl4BEQ5NMclUJKmToI6XYY avSTuFOOlpLxsZZuqb895KA U6UkQcRJSkqrZnjUjmeB1xF oYbIZY9FQEyAXwcXRF9 CLINICAL HISTORY (test t8cguNIrJZVemPF2HhAsOYQ code = 3356) yv8mgr8DroILnkGAaGNtzzF FiirByxk94wWS8uU15QI4wF SPwBgN9CJSaenW1Yyq8XZJi ZJUvbIZiT394w3sgy2bztyF xwTK3tTmxUKHylphcRzR7IG osRJGagrnqPIx9XRsjEZHgx XR7XTTskDVdE1SrOGQwSL7j kdh9CGR6INmdPYOePuG7CIN haJEhRUBsiVucEXvwd264VC M1WuPmGDCjctWwcPwlyF6jY mDkFQVCuEMkbQaggZY3QSNb cn0= GROSS DESCRIPTION z5sqaQOnAGEncGBAINGtN6z (test code = zadKaVWGauPYbO0VmczzsMR [id number]) xsNR6iMR9bmOrszKPjdOLeG A4ANQApOzXhLMTemHRfdrNj JdDyITUfsCZjwOD3MUNxAV5 zktanUXqsJDbpTXGxmtR8TW FdmXNgA6YaNNNwRD3blbplI SO3AVehiA0uiwVOFvplFc8c dHRibHtcZjFcZmNoYXJzZXQ iOWCheBleTMYuRVs7xX7LLd whZDI2EMQUCxveCQZpLE6Oq 3bjRNWosYOxXKK4JHkuiYLr WZElOGKhRUu6CEFwCBjrgAD vCE2wrNbuApauyOxrn0RflQ BcXGlkIDUxMDAyIFxcZGIgI Y8OQnMoHFFkOjN1PoVuYFw7 PWu0KZ4ZBrBbXTBzAZV5CbM 2CQRhLIv0ZKnoJK8HLVKlPj f9BCptOwA0WEC8DdBfPLDhT iBcXGYgQXJpYWwgXFxmbCBc PW7qyZbhnQHvhoMJNzTImGI vKB63PzhmCDGaDVebSDFjU0 1gm4FHu8TpMN2NRXi6xoApy kmqfA2aRAWronNgGDghmJNl T2hmPqVjGOLOQEVkiJBzPWO mcmVzaCBsYWJlbGVkIHdpdG gddQayWJNlqUxculJqS4W5q hIeRO4bBZHcUTQzG4PbIDVg X19uIACqtV2lCLUxMJ8qWHJ xlDTyTO33HcDtenUfUR6zYH Xzm31kRjNUeY3dfCRpYFClY TvLBYEsk7xlUN6zMOKdJCUu sZ0lHH1fCPY2nweaTfS3Hmm fxCS5JyYamMZfMeNiS35fRI DMoORyEUY3eKHpHPbbOAjhu 7WfbAJpRHN0zPUjCLWaWQSm Ry92EJAGJfLND3KnPIJ7QDG xIEggTWVkdHJvbmljLCBJTk ShZMZFE9XvSbQxQQMhdz2gz rEsvL41k8kbKAWoVNjtRROr s5LyDtClSn5gp4CgkFhnifN xMQRvQOJ9Cr2lhEFvEJ8evy 2wyhXjgcd9ObicjZ7jOGawa H5nLFMnEJocXDHwP3ZdmQ3o QA0JPjiqPHKfWLZYH1BaG04 cbGluZSANClxwbGFpblxlcG pwVcDfyKVuZsAcdDtiaQ44Y MInnSUmXTF8ZY9lQKPexiga WSYqJIVvHSV5ORmmtT20jYO eKTJaXLRsdIXvwJ8MLTByGS N6FPrnwP19bWMcMR6XITQzI BM0NJNwnNDaXMA2SN6kjM3X fQ== MICROSCOPIC z5krlHGvEEJoxBG1MnDaOZZ DESCRIPTION (test code hi6zdz8IslLLqzKQbJZzxnJ = 3371) ItxxKpbc37rTF2zA08WN9fK RPgFcW3IMBgxlV1Jkm2UIIv WEWvpDPfE993h5tze6hmsqY ghGH8fXhfIJBghmhkTlV1WP lfETUwrajvJQd5WYkdYFIhj XN4XHFxkQScN2GlSMOwRG0s xzt9HNP8WRfcSCDsUeL8ZVY jmJTuLAFouJieFPiic729CW B1IsBoCYYcyoFnyYletL7wJ uOuKLAHh2YqWLYiqIvbUAHm XU8yBXgqXAZ5 Gross assessment was [facility] performed at ([facility], code = 2777) Department of Pathology, [address] [place] [phone], Technical component [facility] was performed at ([facility], code = 2778) Department of Pathology, [address] [place] [address], Professional component [facility]. ke's was performed at ([facility], code = 2779) Department of Pathology, [address] [place] [address], [facility] [id number] 12:00:53 Test Item Value Reference Range Interpretation Comments Case Report (test code Surgical Pathology = 104) Report Case: [id number] Authorizing Provider: Jeannette Alexander MD Collected: 12/13/2021 11:35 AM Ordering Location: [facility] PERIOPERATIVE Received: 12/13/2021 12:40 PM SERVICES Pathologist: June Esposito MD Specimen: Explant, previous intrathecal pump DIAGNOSIS (test code = t5ajwMRhWTYyy7bfPVFnyUR 3220) uZzEwMzNcZnRuYmpcdWMxIH tccnRmMVxlcGljOTYwMlxhb sEnXGQozYJmP3DmwlomZNzc RJ6yNK7xiGukvYHixPUbHWD iMlBzn7zrd800vLQmy1keWN YPafigsZq9mBwaD55zf6Q2U yoyN26rxBTrNZA6ZJFcECLg eQLyYWKpYNI2WIOjvULiN2l bSEPpXZ3wfoogYGqgUXcxTS TlvNN7PUIuoORdR3EjRDKaH TqrJMEwrjg3VfFdHd3gzRVv eTcyMFxwYXJkXHBsYWluXGZ zMjAgTUVESUNBTCBERVZJQ0 BuANZKEb0VFDZHDBSXFdCkO V9GXwYREJGAXZguSPFWIPAz UKXTYA6GJHl6MCtoykOdXNT sHKIqEQ5QXFtWBAidKYCMGD NUIAYFSuWUJp6BFjIECULVV ElGSUNBVElPTiBPTkxZIChQ KDNOB0VaP9CPBYjEV8MKBFH ND3LFPSFJEW6WGFgyYIKcnU RukRlyygDeARqkw6WrKZupY VQgIW3afHbnUBAnKB5vPQFd W9ocwX8mfjq1XzPeTGNaAhD 2VXDfbfY7Aaw1FQIgUVjij5 dei3VlKPMkOAw6qBdsXeUgW GIlf9hdnpBpXqDmWUBpTIOm RQChaSZlS256a7zrs4fgnvB noGB2HIWyZXF7RLnrscDtmj Z4BKbykODcVdY1KKtqsmWmC JkykmPavvFmKzs9ZNQtG588 PYX2cJvje5mrUER1CZGpWKA xKmRmCl7kfXLtP734APDmRV UQYFIokAy4BKJjmrNepfPhv FTSe009G622u4hyTFSluxUj qMyLyzngn6wiT687OMTslAV afcSkZtLqAPVraZEikFJ3QA EwHK0ifbihOEpoRTohUQIwp kP8SFWjmRXkD7IeZCYeTM9z fpokVGR6SShsINIaOIZ5GmF eBKErb2Gjttm6AwFvnx1cho 94JDI2n7MebGdvIRU6HOU8C pKoOc9xwQZjSHHdDM1nKcUd rRYvJKRvnj20cIxwETkyJAN 1VIEdpkNxs1Uud2cfGwEwvb FiL5uaU1IzDRBxSHMpOEAxQ wSwynFfl5Ytb2RmiFWcfJm9 q0gzBTNsQDSdlEdhu1rbCCB 0PBFzsCXsO1eemV9mSKOnJK 1ycveeb3lvFCoqWMjbUNZmi DH7gvN4LPPtyHRnV3MqmR5j BMKtWRbhHHBiyjx5JdOuQv7 vdGVyeTcyMFxzYmtwYWdlXH BnbmNvbnRccGduZGVjXHBsY WluXHBsYWluXGYwXGZzMjRc cWxcbGFuZzEwMzNcaGljaFx wAIfkBcGpAYQlHFdiT8pxZt TaMaJdXyk0TJHvhPZdXSLvI ba9XKAahXQmRDJZmRlexF8m MBCnjOanpM0mhBE1MJGorkT siEZGaP5cWRMUdA1qErV1XI TjCdd9UQC1SyDozVJjxH4= CPT Code(s) (test code h4kboQNoBNTwkHW2LiBmYQS = 3357) sy6akz5CpyEEzyLTuEEwauL ExexSjec14uPH3yA86NQ9dO XLbCkU0VBSkpbK2Abu5KHJv INSayROgI358w5azc1nvenS jdWO9pBlrGVGclskoXkJ0HD ueESFuzthxQZe7LRgyBLSoy JW5VOFqmKVaX8DnWKCvUZ9t lxv0VAK2DKggDKCrWbM4HXE yvNZnMTBxkHbmTUmhj743NF D0WkWzAKFjouLdbNlrxB3yT jRiSOE4BTYoGJgdCNT8 CLINICAL HISTORY (test i8arvXDcWYGhjUY8ClGsHVP code = 3356) rb2qyz6YzkKSmlLAqIZspsR VwxcGybh66bMM9rS81AE3kZ MBuCfC8GQQxxeV9Ncy1ABMw GZLtuQWoY836g6oil9irxnO fkOE7qQroXJBlwpasBhP9DB ioESLhdhjyPTq0HVidYQHcm SC4VTGvzZRcE1TdSPEcPE6e lgf1CPJ8PJdlBIYwIaU9AGN ltWSzHDWcnTmxYUjff324NG P3WsOnWGDixvYkcXoljS6zU wCpVENCqTGznJgilRY3ECWq cn0= GROSS DESCRIPTION j9nwhAAgCYUnkMRNTUAeX1f (test code = tbkBiLRZqdDMzV7UocutjYA [id number]) bmKC3zOL6maSnijTQbmAXpC L2PNDWqFsHvGBPhcQVhckNt VhXaCGVseNSseCP8NKHhBJ0 risubWNzvLBjzTPGtlyM5JQ FyvNIdL4EzFKZdIV2qhlfnF ZV1TQecxT8nxkTEGexgWs7n dHRibHtcZjFcZmNoYXJzZXQ rJQUaoQrpKOJlOAo6bR1REq ohWZT6MXRFLlbnZVAcZY5Tk 2tpDKAlmMDfAZW0YReghAIq LVUpLMZkLOs4DPBtBYcoaRF jGV6aeCxbSbrvzValv0DcoU BcXGlkIDUxMDAyIFxcZGIgI B7XVpTiIIVzAgQ5YtQdBQj1 LXn8CV0LHvNqSMEdSHC1UvA 6UEOkPYn4HXcjCI0FPOZfUe i2SFiqOrJ9FWM2WjDrZUCoS iBcXGYgQXJpYWwgXFxmbCBc HC6nlXvjkNVrbvEDIzCWkGH tCF06WdyrZBWvTXkmRTGwP1 3cn0DQy6HhWV4CTZf2xnRnw jrceA8pEPPdtfUfETtzqCGw I4srAyDyWCQSDHAitUBiHPB mcmVzaCBsYWJlbGVkIHdpdG pujZjoKWAidQkhczZxQ5G6f sMlDM1qTVIyIRCyR9TpZIFr J27eUBLgeG2iSBTrJZ3pFWR dnGIoNG18SxUkisUcLX2zXR Sro01uIhMSoU7dgMFsFAHrT EhHFICkj2jhJR2pQOZhEQWn qB0tAJ9gMQH7bblbCwI3Qqs sdRV7QhNkcOYwHeYiG65xTQ BQyNGcMKO6aQVaUGihKZsce 4TetCSzPNK1uULzDHEhSTFj Ie43DFZHQtUYB4IzAXV0GIK xIEggTWVkdHJvbmljLCBJTk ZrQEKFW0FsPuIjUAUjow5gk tDcdQ92e3lqAFCeIDjlVFJv n6WiTtDkAs2qm7HtaNtxtrF eRUOyNLJ6Vy0fyEJuEM7tdr 1aftQpphd6IxldnV5jFOgdk L2oFFAgUUjnVBXuI9GzyN8y QI7UFmrbBILkHVVQN1AeC07 cbGluZSANClxwbGFpblxlcG ccUgGplQAbWoUdbMubeM18U XBgyVZoGZD9HE8kWJTbsceo BOQwWUXjKLO6WVyvlJ88gMB zSAKzVFTviPFbcF4RIVUlQB F6DVmblV56wESgTU4JDTQsD VQ9NHPgqDCrQOX5UT2qcV4L fQ== MICROSCOPIC r8iefYUaDOXlkWS0LxHlWHR DESCRIPTION (test code eq7csg5WgcVYgqTDdOMtyeE = 3371) SvfkJngy34xJI4tO48TE0uD JLuVtJ9DHCtijP3Alo3DVBi EQXdkRItS674x8wwj1ieesV kfCP5cVluDQVrzxzwHaH3RI pkPOVzkjagTRp2CSqgWTBkl WE0CGFvqDWeV7GfABNeGY6x wdg9BKX7SImaKDZdOkJ3ZGM hmBDlCAXzbLscQJxwa850PT A0HkGwCAZhrrEagSbdzQ0vG uIpZJRXr5RsHIEknOqsLZHw TG6kBYhnUMM3 Gross assessment was [facility] performed at ([facility], code = 2777) Department of Pathology, [address] [place] [phone], Technical component [facility] was performed at ([facility], code = 2778) Department of Pathology, [address] [place] [address], Professional component [facility] was performed at ([facility], code = 2779) Department of Pathology, [address] [place] [address], [facility] [id number] 12:00:53 Test Item Value Reference Range Interpretation Comments Case Report (test code Surgical Pathology = 104) Report Case: [id number] Authorizing Provider: Jeannette Alexander MD Collected: 12/13/2021 11:35 AM Ordering Location: [facility] PERI[facility] Received: 12/13/2021 12:40 PM SERVICES Pathologist: June Esposito MD Specimen: Explant, previous intrathecal pump DIAGNOSIS (test code = l9klzOWnFAFkp2gmWUKjrGD 3220) uZzEwMzNcZnRuYmpcdWMxIH tccnRmMVxlcGljOTYwMlxhb kCcKWJwyKEyJ5PopypcTLqp QQ0wFG8cjCksaJHdbKMiUVF uXuViz3iqn487lSKxn8igNA RXicbdwXq0gEzpN43hz6K1Y wsbH45egNChIOG8IAFkHBLm lTVxQKXuGQO0WXSzbQAaB3u kSGBeOP0imfsnVSwnXCadYA HanSI7ZRJewAScM4UnCQEwZ RdjSJFjiif2OxRwJc6elATt eTcyMFxwYXJkXHBsYWluXGZ zMjAgTUVESUNBTCBERVZJQ0 DgPBQRTu7SNWPMBLPCPgZdJ V9MWeJEWHBUHBhzFOOTZLYu SGGHDI3KZQb9NCworyBqNEP fLLQeJC2DTDjTWZovYYZDKO UUWQWPPvXBIs8ZCoRAWZWZY ElGSUNBVElPTiBPTkxZIChQ GXMDJ8CrZ7BFNYiNY2ZBYWT ZA3ZOXHLDJS7XVEkhXHFqgY WnwQguntOmNKxsb5UyJCuuH NRuIN8cnAiaPBQfGT5mOKCa A7rrhK3lhdp3NnKuWAAlZyH 8NOYbshU7Kby3VWKeTMeac4 wdk3PwEANsTJo8rHwqXdZwB WVws8cvkiWxTkQkVWFsJEBh EGJmnNQhZ736o5dxf1xvvzY tcDZ7FYDxJPM7JVqwziJhtr T3LZenqPAfSnF6BCkbyvJuX HkwmfLdfgGaEep6DHZxB136 NCV2yPwye6atEQB5NGTcTZC ePgNgKi5erLMkK156CLOjDK NRVEGjbLc1PTDowvYqsbOnv CZWw718Q414r8ftNGPuhwBy pPaVsbaoc2hgQ290QLGcdBM jfpOcMpEsEHDbqAAnjLF5LK IlPN9dglpwTWtjQRksBPWdm nU4DKXynWYkZ9SnTAXtYX4e ynwhPSM6UCsuFBXzXXY1OyU xAZHjm9Duemn5SiUnnb1kcv 27BYG7v1BixBlqOVC9RAO0Z xPsXm5wbEXaDJEeKP9rBuLj fJQdQFPlen17jBwwZYkiGNV 2EXAuhsOfa3Otj8fyPzEpcw KvN2xfQ7DxJEOlLXIjKWRcC aYwtsPpm7Rfs1FlsASxiIl9 q7rmVXSvKVTzzXlgs9rjCRS 4IZObqHVpS3ttmL1nBUGyRZ 2yxgfmd2jmYRmrKByvCLNsm AN4nnJ0TYGmgZPzR6DavW7b FLRwYEtmPPLunny9TtNqZk9 vdGVyeTcyMFxzYmtwYWdlXH BnbmNvbnRccGduZGVjXHBsY WluXHBsYWluXGYwXGZzMjRc cWxcbGFuZzEwMzNcaGljaFx kNWskSgAvTSCgNPtlI6omEw OtZkTwTgf5GTQtmPHxKOZrA hi4REWeoDViXUDBmUwpjG8z NAMzsDcvuM5csHP2PTAaqxZ nnHIMbC2lEJDBnJ2zPrO2QW QmFlk5UWM1OaUgcQQrqZ5= CPT Code(s) (test code s2hhuSCpKGFtoRT7GuNaZHO = 3357) fw5nfg1DiiMWhoJEuYNiakC AbepTtly29sOG8mY30ZE5xK PQhFwC4IDEbqcK1Ccr9KCHb AXNywSAfG541w6zuo5bnnxG tcZA6tKtqGOInnyxkWbZ7ST wyACOtppxuRPy8UXzkWNGdc MF0KEQebRLjH8GtISHgNW1a tao6YFL1QFauKTJvCyP0VOB nyDWsTXPdbPdnLWxmx629HD U4BfLzUMUsylOawKdpxM2yV jWdYCO8GSUtDFomMHP8 CLINICAL HISTORY (test y7zmiCNgGVSzxAP0FlYsTMD code = 3356) wt4oeq2FjiLIeqWWhISqbcH XcyqObqn13fDW4sO71CC1eL JQgDrH2NIPajwW0Tdj9GXOg EBJerMCrS475n5lqt4zghqW tzUK3jFhdPCEowthnXvK7QI uaMCZczvwaWYj8VOetZXVwu WL0PQZxlLJfV6CtRWCeAW2l vzt3DEJ0HYotIERlRcI9EWA ygRSoIHQvnOgtFTbaz963EQ G2OrPeISWuxlFoxTsvyX0kA zTkRGSAtVWbaVeckMG9FVAp cn0= GROSS DESCRIPTION x3duuTPgQOGpnEZHDUDfR1u (test code = vmkAqHZNryJKzC9PrasyzGL [id number]) hbZZ3iKT8owTkbdVJskZCyK P3MNQNqZmVtMJTrwDNbbsJd NsApZRWrtLBstFR2NUKhNW1 vjbcsIJifSUpuSQJvztE9IH VyhHVwT9OjPKJlXR2dbbqlN WK9PMjnlF0asxTUOntwCm7s dHRibHtcZjFcZmNoYXJzZXQ bYNOfuRhxDOGaASw1dL0YWa tjRKC8SSHRCrlhEJBhEW1Mw 6ljPLAyzUQiQFH2UXffuSVi SRWiOZKpFKh1ZFNpSXwydLP eGE9qrVdcLhpsoFwkd4HzqU BcXGlkIDUxMDAyIFxcZGIgI W0VLwXeNOFpRwY6VqBaPIz6 OSp5GE6XNvYrALYwUCE6XtO 0AQNlLMn7KFboDG2YJRQdMl w5KHbwHaA6MDL3TjPaSPPeC iBcXGYgQXJpYWwgXFxmbCBc SC0nnXtbzAWtizRBJgWSoBE dVB57LkdxYUHkZZvxAECmG4 2at3CVp0LyYE5WNWe3fzUpl mgomY3mHKZehkZpZCqziOAs U7yfMuGzKWNNQWCvmQLjOUY mcmVzaCBsYWJlbGVkIHdpdG lliJzaVFWirLcghlItC4F2x bLvHX7aNVSaPQVsV3UoJMFq D51nRYTvtY8xAYOiUT2lRZN kwFZlOC42UqMcbnKeTM5sXB Meb66xIfJIrQ6phPOmRNVeY GnAOWQqs0ltZS8mUGVaZTMy pQ2xRB7hIEX2bglzHwL6Abg mgLN2HgVvxTTzYyGyO27fTR CNmYOkOMW7bJNbEOxnKYnfz 1PndXZyBKN1dIGmAGSiTPLb Wa78YHYSClYXY3WzUWY8XPZ xIEggTWVkdHJvbmljLCBJTk SbQJXFK6CvIzAdYHHhkr0nz iZymL69l2isYZBfTDqvEMAp u0IyQiRqZt2pr5XceRixzbW oTBWrVDM3Tx9iyNGuIN2svo 0otdKwsfq7MiaimQ8sRUvsp K1gMEHaWQzrTGYvJ3LdtB3a JY8XIuziKRXbTGEAQ5BpG02 cbGluZSANClxwbGFpblxlcG txXpPraXVpHmZzbRxcnO31V PPjtTIuPTB1AE8eECCwapes DMSoFXBcTHV2OMgfuM56nME hBDEeGCMsbJKhtA9ZQXFrUT D0HGzmmC24yTXwWI9QUVBqW GT9DHRwhTRoXVP4CY9jwD7K fQ== MICROSCOPIC x2ssfMFvSUDobWW3PxQlETL DESCRIPTION (test code wk7pba4SrsOPriNWjEAuthM = 3371) GptmGgft44nIL8oL25IM5mF JBrRkO0VCEowjJ8Opb4ZNJy DPZthIHcI589u1gll2oyshX jnHS1hPmvLHIremdbJxB4YS hyPTTrpcueOMz4WCexRWUjo UT4XDFmnAVzL9SaZABuSZ9a iiu1SBU6UAigBWDwUcR4COF skZHiAWEijWesCPgpr147UF Z6UgCvUJCkamJtnIbjdD2tX dPbGDERw1PaFVFueNksTUPn RX6cYKljSRK9 Gross assessment was [facility] performed at ([facility], code = 2777) Department of Pathology, [address] [place] [phone], Technical component [facility] was performed at ([facility], code = 2778) Department of Pathology, [address] [place] [address], Professional component [facility] was performed at ([facility], code = 2779) Department of Pathology, [address] [place] [address], [place] [address], [facility] [id number] 12:00:53 Test Item Value Reference Range Interpretation Comments Case Report (test code Surgical Pathology = 104) Report Case: [id number] Authorizing Provider: Jeannette Alexander MD Collected: 12/13/2021 11:35 AM Ordering Location: [facility] PERIOPERATIVE Received: 12/13/2021 12:40 PM SERVICES Pathologist: June Esposito MD Specimen: Explant, previous intrathecal pump DIAGNOSIS (test code = b9wtnJAqAJNcd5osOMRhfWT 3220) uZzEwMzNcZnRuYmpcdWMxIH tccnRmMVxlcGljOTYwMlxhb mYvOMAesFCnK6VgbuyaILpo JC1gQU2slLtldPOslFScWNY bZkXpr7epd262tSMad9ffBV ORbptdlMr8xSsdL80wc6Y9W brxM67vnORyRIN2SHItFOWd xGSgBJYhHEA5QSKwfDLgH5o hWHHdAI4rxrzkNOyzXEmmMO HcqPT8SDUwxFYpU1IgXYIcY HxtEOSinjx2EhRfHe3xmVSh eTcyMFxwYXJkXHBsYWluXGZ zMjAgTUVESUNBTCBERVZJQ0 HnPQIOZh6FIMWRZYJVSqDcV R0BOhNIHSLRXSziDXYFQAOx XVUSCZ3SVAu6QOzvihFsLOK uAZWlJD5QMQzOHJncTAMTOR FFREBDFuNMMm8BBqIULGLCO ElGSUNBVElPTiBPTkxZIChQ NNSTQ8EdU4KNXHjDM0OTSYP RA3KJXUQCYY9CNOteXJMvjR CgxIosxmEnJJiel5VgUDeaQ TXhHK4kdVdgRDXkXB5tXEIm E4pnpT6zfkk0XpQmBNPfHqZ 3HPQkasH1Nyn6MNJwHOupa1 cbp6HbZOMsYYw2fOcfZsBrB TZna0ntyyLfXhDgRFCqXHRa RNJmlOVoX812p2hky2mnbcZ byNS1ADBiAPF4QLboodXxom J8YFuzsQEuPsZ2BQgzclXeX SaejrWqclUoMgf7NFYyS416 LXN0bPnvt6ryXCO9XTYzKLF zGeSkCq0cpTOuX522QZVcZW RMLHEbpVw2VIYqqbYgafEuq WDEb685S222s1fiYNSsneWb fUsJgsyfo6bdM489EQPbyXH asmSfKaNlYBTowIFzqNJ8BO IgRS8qxaipVPnfYYgzNHGgk dB0XAMatQJeZ5JrCHYhTG7d wfusHOR4TEbbBHLoKYB2PeI oMERtz3Azfzt6CgXdhs6hzq 70HYV1a3IfsWfsQOZ5LWC9M lHjUu5bmCPsOQJkQU8wGgJp aVWhSJHqtj21gXekTIyeSIC 4QXRvqjRzq1Dmu7ocStKtxb ImX6sgB3WkYJOdNRAjEHDpY uQeyiKtl9Chk6MojHWeaUc5 h6gpRQAjXOGckNemv9qhBKG 1ZRNfhTUlJ5jmrS2vJTBjTO 3mkgqvs8bnHAqfLKmsHTWld XQ4pkO4ERJxcIPbZ5YvqH7v THAeRPyrVLLmycw1NwQmRo6 vdGVyeTcyMFxzYmtwYWdlXH BnbmNvbnRccGduZGVjXHBsY WluXHBsYWluXGYwXGZzMjRc cWxcbGFuZzEwMzNcaGljaFx pSRglOiWdXADwHSdxL4pdBn HsApUdHxx1MAVqvBMjNEXpW xy1WWZkkROiTABKdSjiaY7q DBGltXqeyI5rnFI0OXEumkZ vtAYBfH0hKDENtU0wQtE1YI SrCut7TGP6KjKbuJSvaD1= CPT Code(s) (test code q5bkzROwLODlqCB5NqDgCGU = 3357) mu3uap3LavNCdlLOfZIheaY AhnuMhdy83yCQ1xR72IM6wL FSqZcE9DQMnknD2Nli4PIGt EWGzzFQqS158s0odw2xfmdZ trXG7cPfbMIGfuvtvFpO7IQ sqTTGixgodNYb8GFvbSFOpf SF2FKMrvXLyA3CtUOKfHD9p xbm2SGG6EAmgHOQsCwV1MOI auYWiVAGieRraSWdpw724NQ Y4WcAvBFHjgxQdwRtrrD2gN fArDSF8TRNiADuvYFN6 CLINICAL HISTORY (test n9cuaHLoFZZssHH0QzGuCCI code = 3356) fy7jvf9HvmDYoxEOqXXeraO QxntEvpx11gGV3bD97FB0kC ERaRtE7EXRkzkV8Von2BVBf GUJqhRDeA028z1tub6lhqpL orSM0oRdrYMXqhsgaPvQ3PE jrFMWsfkswFQa1TUjdHKAnn LZ1SXGhmPDnT9LcBXAeVI7g iyb1XCV1WXhvUBFaRhZ4RZC qbQVlAKGoqObbDLdtv932XK F3BqIbNKKthrZsrJucnB6fO rTpWOMTwTQlgIuqaNW7ODHw cn0= GROSS DESCRIPTION j1smoJLaUJSdtHDLWLSgA0r (test code = zcxCpFLXcmJRdE9UgbvbpOW [id number]) vySX3bYX9azEbxzMTdzRThE G3RYMZfDvQiIQVpaKSnpcXw JtPxTWWweFRbxOQ2XMHkXF9 gnkjpVDfxTQxnYOKkqdM1JO HbfPVgG9XjOSLmBV7zbyyxP MO2UAffrO3fpsNQOoppLt9t dHRibHtcZjFcZmNoYXJzZXQ bDXUfmHmbEMFqMYy5qS5AOy smFIQ6BDNLHfhjUIHvAG3Ff 1zxIVSavGEfZFC7IZkndPMf BOUcZSOhPBv9FSZaDCtajDG fBW7zjOtkTkwvsYqgy3CtxQ BcXGlkIDUxMDAyIFxcZGIgI K8BEoUnHOJmSrD8KeXjGIl6 QMv6AQ1PZeKmVOPmFCX9MrM 9DFOlSCe1AHlfAN1BVCCrFf o9YIenNvK3UOA0PfXgNKDtR iBcXGYgQXJpYWwgXFxmbCBc PY7nbDuljGMdfiOTNeIAtIG yOF26KsjcQTZpISseAGSbV5 2bi9KXe5SaMV2IZPp6upYla qojnN8zLNZnhzDiZSgsrPFp O6umCaDdPNKMKEIrgSOeXMZ mcmVzaCBsYWJlbGVkIHdpdG mamZafMNCkhRzifuGgS7K8f mXcQU1dVWGbAJOrT8AhPLEe B79hGELiaC2uCIRsNT9yJAL spNJkXB98SpDvdnFvAC4dBG Slo16iUiUMiL0ylADkDBAoG TdAUDIto3tbMD0mCSHdFJYm lC1xSB3oSQV0tpxkNvO5Gnb gtBC5OhNmsVRuTeVfT08fVH JCfAGrPUP5sYWvCRglYDort 9AmqGBaUZF6dUJmRMIbEMRw Vl26PKOZDiZCN6TfVIZ5SIW xIEggTWVkdHJvbmljLCBJTk SxYPNXV5SdTaShYSAsey2sv wGxkC00v7wcBCSvFHoyPOYs o2IeQtQmDp5qk6BvsIdspcQ gVAVdJHR4Lc2xlYAsSG4yia 5pkyBwhmg3YdkotS7wWNnvn G5oZKZkYMflQKDlW6IyaY5a JY6CQvtoTZJrLHSTM7QaO39 cbGluZSANClxwbGFpblxlcG quWpOccXBwWqEisIzueK85D ZAwzUBlEKI1VL3dRURxxvbz ZKDyXLLdKFQ9GQlcqA54fON wLBQmFNYmpYCkwP0MREDwWU X8BQwkdU46nMCiDC4MPJNaG KH6HIDwgMUtYFJ2BF7kjG5E fQ== MICROSCOPIC m3qlsZBaBTDdpOQ1JtCdYTI DESCRIPTION (test code fg5ojl1TjbCPhrTQcYIpwnZ = 3371) RoyoPzho67xBY1gE20XQ0rG CMuMsO5SPOweqK7Wrs4CJOy PCGpeANjD704n7acb9fotgZ xwFX6eOuaRGUcwhkfEoU3CN pxJVMoxqriJNm5ISkwIIBnv RC3RROmwOKxS9AsWBTpJT3y aae6BIH3XLuzCTXtNbG1VFE pqBMwGJVxzIyhJPvob782MC Y6MvBnSKVufmIfyHlhzZ5kZ tJxMJXRp6QwGJQepHrsWDRd DG5wNWcwJIT9 Gross assessment was [facility] performed at ([facility], code = 2777) Department of Pathology, [address] [place] [address], [place] [address], Technical component [facility] was performed at ([facility], code = 2778) Department of Pathology, [address] [place] [address], Professional component [facility] was performed at ([facility], code = 2779) Department of Pathology, [address] [place] [phone], [facility] [id number] 12:00:53 Test Item Value Reference Range Interpretation Comments Case Report (test code Surgical Pathology = 104) Report Case: [id number] Authorizing Provider: Jeannette Alexander MD Collected: 12/13/2021 11:35 AM Ordering Location: [facility] PERIOPERATIVE Received: 12/13/2021 12:40 PM SERVICES Pathologist: June Esposito MD Specimen: Explant, previous intrathecal pump DIAGNOSIS (test code = f0egsUIbKUPum9spJHRvzUO 3220) uZzEwMzNcZnRuYmpcdWMxIH tccnRmMVxlcGljOTYwMlxhb aPiYNWyvDXuM2MvxwgaNQgf SB3eMW4xiIttnZTxfROlNDD aEgWgd4jek844zPLyt8nkEX KQakebfLe0uAfuB35om4G7K lzpW39jkENfWSE8HNLiRYIa kAIyFBVqAIC2OGBzvEJlI8q cJUFxUG4jfhqmVPbxCXrcBM UztTC3CGCkiLIzC4SjYDVfK LmjBSVhcnx8BdNqAc1wcQNy eTcyMFxwYXJkXHBsYWluXGZ zMjAgTUVESUNBTCBERVZJQ0 DwLLJUHx2MQXVHLJNSSxOzL M2JSzSHSOMXLCfdYXBAHQHl WBVAWQ5AIYq0ZAqtixJvDES fIRVeQV8XQBxHJPsdFNNAPE KHRHFOGwQURk5GVlRVSGLDM ElGSUNBVElPTiBPTkxZIChQ WGWBW0LzJ1MCCQcGP9PRVHK EC6UEVJJFHZ3XZWjkIFGiaL HgnVcugcLmCCaxv6IoCHmjY HBtCJ2rxUtaLHMqFB5qDFDn H6uuuL1svws9XgVcWWGuJiR 5DQEpadP3Tyf6OAOaTJpry5 vki3TlJOHrWZm1mIceFsKeC QMhu0ynfuPdLeFkYZXyPFZx XVRinRHqN265o6leq0ggozB icMJ7HFJnVTP0NEwxdrAusa C9SGzdcEMxNnJ6OUnuvdQuS ZvpdoPsgnEsVae0FZNpG564 MTK7bOoxe7svEHX2DVBlXNS gKgIyOh6xxCWiZ968HCCeWH LZTHJdiQi4ZYNrlrUldxTvp GQWh228W598x1smSRZagjJh vAaZzcxgv2lzS074TSFqgIK sijEyFlSmOWXvrOJfbMW5KT KpWU8hzbllMPnwANnrYKTdz mT2IKAwfTCpU8BuVEHxIS5j dinwNHV9IEaqPPFyWKF0JhH xNAPkk7Cratw7DnSoni5krp 73IAM1y2NceVvqEVU5UXD6H uErXk6fpIGzADPyBV0wLtMy cCChCXWbti86bNovBQzkCNA 3UMAupbTjs4Qbz2uoInNayw FyU9aqZ2NtGQCoWRQwWHJnV bMnmwSwv2Vqj5MpwJCoxNt2 x7myNQIzNMRcrTxvc0pzHZI 9HBOfqBJzF1avlX4dNINlIV 6bwcogk2jdAOedTFerCYZhr XN1luS6QZTbdUCaN7MbkI8b EAIrTFabFGJkfxn9BjIqRq2 vdGVyeTcyMFxzYmtwYWdlXH BnbmNvbnRccGduZGVjXHBsY WluXHBsYWluXGYwXGZzMjRc cWxcbGFuZzEwMzNcaGljaFx kDBvfOgTaVXZlXIcgS5jlTs LhRmArYcc7IOZghTBbCJFgG cu1RSRnfZSuQLUGnGbqyB3d OBXrmCbdeD6yfAH2CKJtlvX rmTQKlO2cYIVZiB8tAgE5PX TtZzl4QTL1EaSguPLmvC2= CPT Code(s) (test code u4nnjJJtZHXypNF9LrFcYPK = 3357) ig2dll9CnbYAllHBsBJtrnM RtrpPrwx15qXX0iW10HS4wH GSfEcF7RRIwuuJ0Yvn4YEIj OBXesPGoR517x5bxv1uigqB phIO2tDctEXOerlwqWlE4ZA jsACXgccrnOUy6XCczXAWap CJ8SIHexCUpJ0UcMVRyRR9x vrk0KGA5YZawAPKvJlX0YQR moLAfXKLumWcxEKcmy811XU P7NdBsBOThwqDnbCverH7wT xHzHTQ0GSKzKQbaERT4 CLINICAL HISTORY (test m7hxmABoWFSsxMA0JfPeTPK code = 3356) ot3enf2NdxEZzuXDlBPmlnO CbjzMqui04bFE2uS97PS6vU EHnUcU7JNUtjoT1Wdw5SLLl GILoyTVcM398n3trk9dzmsV mmGI5xEtzZGPneofpIwD3GB peJMPhgdbtCGy8PAufAUXto GT4TTKytRVqJ7ZwREZcAB5b atj2YAI3NEydCHTiShF1CFU kzZInWUNnhWdjVPcav719HE I9CkEmCSKcopZhjAlcuR9qB rUkKMVCvCKdfEwdwCL0GXWw cn0= GROSS DESCRIPTION b0bzyULqUHEndIMSRSNnY9s (test code = qbvUnKQJrzVQjW2RlirdrZL [id number]) jeRF0wGH4vwKkkxCPqdKQbL F4UEUDqOxQbAHZnkTUuikRi AxIjDAXfmZNxnZU5YNBtZZ2 mvybdHXjmMXxuDLTzhzK1UP HehDOlQ1TeILKjNU0jiqknS UT0HKduqE0miqVIAdgzQa4p dHRibHtcZjFcZmNoYXJzZXQ xZFJbnAokTQUqXRw6rM6HPb gqFFU9UPAYSyalPMOcZB6Pj 6vwDXGzbLGgXOG6TWscgFHn PDEuYHOqWNt4GXHjPGzfbZO iJL8lfNeoLqbexAxuq9OrfL BcXGlkIDUxMDAyIFxcZGIgI G7LQwWoMELcQnM8FtUiJXn2 LNp3RC2KHbPgBAPmECM3DlR 7FCSyPJi0URsxXR4RBJAbCp k7OLdaRwE8WAQ0PaHsAIRpM iBcXGYgQXJpYWwgXFxmbCBc EI9rvYopwKJcptSUAqOQnOT pNZ70AjfcNAJkQWivKDCmG4 5nc0YLl5CtOO7BTRi7rqUnn bdvlZ2oGDDcqvSmASenhFXy V9eyXwLbPDDWUEOnpISkRAI mcmVzaCBsYWJlbGVkIHdpdG exyWcrQGTdhXafdsRpT6I1g mAnHN9bDRQqDMWvH9WlHSRh D71wGGKxuS3oVDGwMV4zCMJ vhDDvCG55NuToisQoIS1tCX Cmt80uJgARwA9qdFFaJSEqZ BxFLZUjg0yhHZ7pHZIgAYGh mK6eHL4mMFG6ufqjSxM5Jrn gwVR2PpIxwUUxGuTnV76mZY CNnPDhXLB2dUZeAQmiCPrfw 0GgqEUfMPL0kBWsPMKkLBYy Ca89SXBIKzNMN7LcXQH5KTX xIEggTWVkdHJvbmljLCBJTk YsVSNFU1MzHkWjJVNkdb8fs hUceW81n9ipMWZdNRrzGWCe m0DtGcNeAm2pn6WvyUkvovJ bPBAzIGB4Tj5ceOHgKL1tyv 6tsgVgbyx5ExgzaE5pGBowg P6gSAMgOIdcZHGhN3ZtxY2c FR4KSuvyKPPbRBLIC4NeO00 cbGluZSANClxwbGFpblxlcG ivPeGngKQqSjMldUkguC73R NCukBMfGQS2QU2mDGXtbejs WBUoQTOvNLS6DIrrzL40cLH hHYLiLLBcmFDehX0XIISqLC W2JLrgaA80aCEjVF8YEFVjR DI0WBLvbHImSLQ0IE1xkL7M fQ== MICROSCOPIC m0blvMOfPCSojLY1FdGmHTX DESCRIPTION (test code ps1ovv2JfsBKdgYHzBGuqjL = 3371) AayyOxvp01sDT4mN67DU1aH KLiNiN7QVBetcO1Fut3RZMp LPLtxZPrF756s4wxx5jipcL xeHV8xKeaYMJpnhhwIiT2IA xfKZYdbyaaAGs8NFihOVSab XT0ZCSubMPhZ4NqETNaPN8g mzp9TTL7ODedBLOnUuQ0ZDD gqKWgFJXbrWkrQJvso816SW I6RbDsFDKtuvAlgIhqqT2sR bHdGIQFe4QxJRFriObhWRPh MJ8zSLinXVS0 Gross assessment was [facility]'s performed at [facility], code = 2777) Department of Pathology, [address] [place] [address] 19[address], Technical component [facility] was performed at ([facility], code = 2778) Department of Pathology, [address] [place] [address] 66299, Professional component [facility] was performed at ([facility], code = 2779) Department of Pathology, [address] [place] [address], [facility] [id number] 12:00:53Surgical Pathology Report Case: [id number] Authorizing Provider: Jeannette Alexander MD Collected: 12/13/2021 11:35 AM Ordering Location: [facility] PERIOPERATIVE Received: 12/13/2021 12:40 PM SERVICES Pathologist: June Esposito MD Specimen: Explant, previous intrathecal pump GLOST KILN OPERATOR, SUBMITTED "INTRATHECAL PUMP", REMOVAL: - GLOST KILN OPERATOR FOR GROSS IDENTIFICATION ONLY (PLEASE SEE GROSS DESCRIPTION) Signing Pathologist Direct Phone Line: [phone] signed by June Esposito MD on 12/16/2021 at 12:00 [id number]. Explant.Received fresh labeled with the patient's name, medical record number and "implant" is a Medtronic SynchroMed II programmable pump measuring 8.7 x 7.2 x2.3 cm. The device is inscribed with " 8637-40 SN NGV [id number] [employer] [place]." A gross photograph is taken. No sections are submitted-gross only.NATTY Torres, PA (ASCP)cmNot applicable. [facility], Department of Pathology, [address] [place] [address], [facility], [address] [place] [address], [facility], [address] [place] [address], [facility]-Glucose [id number] 11:21:43 Test Item Value Reference Range Interpretation Comments POC-Glucose Meter (test 149 mg/dL 70-110 H : TE STED AT [facility] code = 1538) [address] [place] [address], 770 30: Director Of Strategy & Mobile/Techni charmaine ID = [id number] for Umeh, Akumbu Lab Interpretation (test Abnormal code = 66662-2) [facility] [id number] 11:21:43 Test Item Value Reference Range Interpretation Comments POC-Glucose Meter (test 149 mg/dL 70-110 H : TE STED AT [facility] code = 1538) [address] [place] [address], [facility] 30: Director Of Strategy & Mobile/Techni hcarmaine ID = [id number] for Umeh, Akumbu Lab Interpretation (test Abnormal code = 31996-9) [facility]-Glucose [id number] 11:21:43 Test Item Value Reference Range Interpretation Comments POC-Glucose Meter (test 149 mg/dL 70-110 H : TE STED AT [facility] code = 1538) [address] [place] [address], [facility] 30: Director Of Strategy & Mobile/Techni charmaine ID = [id number] for Umeh, Akumbu Lab Interpretation (test Abnormal code = 81459-9) [facility]-Glucose [id number] 11:21:43 Test Item Value Reference Range Interpretation Comments POC-Glucose Meter (test 149 mg/dL 70-110 H : TE STED AT [facility] code = 1538) [address] [place] [address], [facility] 30: Director Of Strategy & Mobile/Techni charmaine ID = [id number] for Umeh, Akumbu Lab Interpretation (test Abnormal code = 55161-3) [facility] [id number] 11:21:43 Test Item Value Reference Range Interpretation Comments POC-Glucose Meter (test 149 mg/dL 70-110 H : TE STED AT [facility] code = 1538) [address] [place] [address], 770 30: Director Of Strategy & Mobile/Techni charmaine ID = [id number] for Umeh, Akumbu Lab Interpretation (test Abnormal code = 41453-0) [facility] [id number] 11:21:43 Test Item Value Reference Range Interpretation Comments POC-Glucose Meter (test 149 mg/dL 70-110 H : TE STED AT [facility] code = 1538) [address] [place] [address], 770 30: Director Of Strategy & Mobile/Techni charmaine ID = [id number] for Umeh, Akumbu Lab Interpretation (test Abnormal code = 05230-3) [facility] [id number] 11:21:43 Test Item Value Reference Range Interpretation Comments POC-Glucose Meter (test 149 mg/dL 70-110 H : TE STED AT [facility] code = 1538) [address] [place] [address], 770 30: Director Of Strategy & Mobile/Techni charmaine ID = [id number] for Umeh, Akumbu Lab Interpretation (test Abnormal code = 25374-8) [facility]-Glucose [id number] 11:21:43 Test Item Value Reference Range Interpretation Comments POC-Glucose Meter (test 149 mg/dL 70-110 H : TE STED AT [facility] code = 1538) [address] [place] [address], [facility] 30: Director Of Strategy & Mobile/Techni charmaine ID = [id number] for Umeh, Akumbu Lab Interpretation (test Abnormal code = 75686-9) [facility]-Glucose [id number] 11:21:43 Test Item Value Reference Range Interpretation Comments POC-Glucose Meter (test 149 mg/dL 70-110 H : TE STED AT [facility] code = 1538) [address] [place] [address], 770 30: Director Of Strategy & Mobile/Techni charmaine ID = [id number] for Umeh, Akumbu Lab Interpretation (test Abnormal code = 73041-2) [facility]-Glucose [id number] 11:21:43 Test Item Value Reference Range Interpretation Comments POC-Glucose Meter (test 149 mg/dL 70-110 H : TE STED AT [facility] code = 1538) [address] [place] [address], 770 30: Director Of Strategy & Mobile/Techni charmaine ID = [id number] for Umeh, Akumbu Lab Interpretation (test Abnormal code = 47457-0) [facility] [id number] 11:21:43 Test Item Value Reference Range Interpretation Comments POC-Glucose Meter (test 149 mg/dL 70-110 H : TE STED AT [facility] code = 1538) [address] [place] [address], 770 30: Director Of Strategy & Mobile/Techni charmaine ID = [id number] for Umeh, Akumbu Lab Interpretation (test Abnormal code = 45250-1) [facility]-Glucose [id number] 11:21:43 Test Item Value Reference Range Interpretation Comments POC-Glucose Meter (test 149 mg/dL 70-110 H : TE STED AT [facility] code = 1538) [address] [place] [address], [facility] 30: Director Of Strategy & Mobile/Techni charmaine ID = [id number] for Umeh, Akumbu Lab Interpretation (test Abnormal code = 35506-2) [facility]-Glucose [id number] 11:21:43 Test Item Value Reference Range Interpretation Comments POC-Glucose Meter (test 149 mg/dL 70-110 H : TE STED AT [facility] code = 1538) [address] [place] [address], [facility] 30: Director Of Strategy & Mobile/Techni charmaine ID = [id number] for Umeh, Akumbu Lab Interpretation (test Abnormal code = 39494-6) [facility]-Glucose [id number] 11:21:43 Test Item Value Reference Range Interpretation Comments POC-Glucose Meter (test 149 mg/dL 70-110 H : TE STED AT [facility] code = 1538) [address] [place] [address], [facility] 30: Director Of Strategy & Mobile/Techni charmaine ID = [id number] for Umeh, Akumbu Lab Interpretation (test Abnormal code = 94142-1) [facility]-Glucose [id number] 11:21:43 Test Item Value Reference Range Interpretation Comments POC-Glucose Meter (test 149 mg/dL 70-110 H : TE STED AT [facility] code = 1538) [address] [place] [address], [facility] 30: Director Of Strategy & Mobile/Techni charmaine ID = [id number] for Umeh, Akumbu Lab Interpretation (test Abnormal code = 37125-0) [facility]-Glucose [id number] 11:21:43 Test Item Value Reference Range Interpretation Comments POC-Glucose Meter (test 149 mg/dL 70-110 H : TE STED AT [facility] code = 1538) [address] [place] [address], 770 30: Director Of Strategy & Mobile/Techni charmaine ID = [id number] for Umeh, Akumbu Lab Interpretation (test Abnormal code = 49422-4) [facility]-Glucose [id number] 11:21:43 Test Item Value Reference Range Interpretation Comments POC-Glucose Meter (test 149 mg/dL 70-110 H : TE STED AT [facility] code = 1538) [address] [place] [address], 770 30: Director Of Strategy & Mobile/Techni charmaine ID = [id number] for Umeh, Akumbu Lab Interpretation (test Abnormal code = 55902-6) [facility]-Glucose [id number] 11:21:43 Test Item Value Reference Range Interpretation Comments POC-Glucose Meter (test 149 mg/dL 70-110 H : TE STED AT [facility] code = 1538) [address] [place] [address], 770 30: Director Of Strategy & Mobile/Techni charmaine ID = [id number] for Umeh, Akumbu Lab Interpretation (test Abnormal code = 38706-8) [facility]-Glucose [id number] 11:21:43 Test Item Value Reference Range Interpretation Comments POC-Glucose Meter (test 149 mg/dL 70-110 H : TE STED AT [facility] code = 1538) [address] [place] [address], 770 30: Director Of Strategy & Mobile/Techni charmaine ID = [id number] for Umeh, Akumbu Lab Interpretation (test Abnormal code = 12781-6) [facility] [id number] 11:21:43 Test Item Value Reference Range Interpretation Comments POC-Glucose Meter (test 149 mg/dL 70-110 H : TE STED AT [facility] code = 1538) [address] [place] [address], 770 30: Director Of Strategy & Mobile/Techni charmaine ID = [id number] for Umeh, Akumbu Lab Interpretation (test Abnormal code = 82384-7) [facility] [id number] 11:21:43 Test Item Value Reference Range Interpretation Comments POC-GLUCOSE METER 149 mg/dL 70-110 H : TESTED A T [facility] 6720 (BEAKER) (test code = [facility], 1538) [address]: Director Of Strategy & Mobile/Techni charmaine ID = [id number] for Um eh, Akumbu POCT-GLUCOSE [id number] 06:26:12 Test Item Value Reference Range Interpretation Comments POC-GLUCOSE METER 143 mg/dL 70-110 H : TESTED A T [facility] 6720 (BEAKER) (test code = [place], 1538) [address]: Director Of Strategy & Mobile/Techni charmaine ID = [id number] for KOBI LUNA BASIC METABOLIC [id number] 06:18:18 Test Item Value Reference Range Interpretation [...] high >=90 G2 Mildly decreased 60-89 G3a Mild ly to moderately 45-5 9 G3b Moderately to [...] not appl icable for dialysis patien ts Director Of Strategy & Mobile ID - GUILLAUME [facility] (HEMOGRAM ONLY)2021-12-14 06:01:05 Test Item Value Reference [...] CT, CHEST WITH IV CONTRAST- PE TEST [id number] 19:11:00Unlisted Reason for Exam - Click Yes and Enter Reason Below->YesUnlisted Reason for Exam->postop desat, immobilized at baseline [facility] 1970 Sex: [...] 12/13/2021 07:11 PMRAD, CHEST, 1 VIEW, NON [id number] 18:47:00Reason for exam:->increased oxygen requiremetnsShould this be performed at the bedside?->Yes[facility] : 1970 Sex: [...] Ameya Ross MDReport Verified Date/Time: 12/13/2021 18:47:45 BASIC METABOLIC [id number] 17:53:04 Test Item Value Reference Range Interpretation [...] eGF R is based on the CKD-EPI 2021 equation that d oes not use a race coefficientEsti mated GFR is not as accur ate as Creatinine Stefani funes in predicting glom erular filtration rate . Estimated GFR is not appl icable for dialysis patien ts Director Of Strategy & Mobile ID - BSBlood gas, [id number] 15:42:21 Test Item Value Reference Range Interpretation Comments pH, Arterial (test code 7.35 7.35-7.45 = 2744-1) pCO2, Arterial (test 52 See_Comment H [Autom ated message] code = 2019-8) The system [employer] generated this result transmit yanely reference range : 35 - 45 mm Hg. The reference range was not used to interpret this result as normal/abnormal . pO2, Arterial (test 58 See_Comment L [Automa yanely message] code = 2703-7) The system [employer] generated this result transmit yanely reference range [...] = 8310-5) FIO2 (test code = 1819) 28.0 Lab Interpretation Abnormal (test code = 72995-4) [facility], [id number] 15:42:21 Test Item Value Reference Range Interpretation Comments pH, Arterial (test code 7.35 7.35-7.45 = 2744-1) pCO2, Arterial (test 52 See_Comment H [Autom ated message] code = 2018-10) The system [employer] generated this result transmit yanely reference range : 35 - 45 mm Hg. The reference range was not used to interpret this result as normal/abnormal . pO2, Arterial (test 58 See_Comment L [Automa yanely message] code = 2703-7) The system [facility] generated this result transmit yanely [...] 28 Lab Interpretation Abnormal (test code = 47194-8) [facility], [id number] 15:42:21 Test Item Value Reference Range Interpretation Comments pH, Arterial (test code 7.35 7.35-7.45 = 2744-1) pCO2, Arterial (test 52 See_Comment H [Autom ated message] code = 2019-) The system [employer] generated this result transmit yanely reference range : 35 - 45 mm Hg. The reference range was not used to interpret this result as normal/abnormal . pO2, Arterial (test 58 See_Comment L [Automa yanely message] code = 2703-7) The system [employer] generated this result transmit yanely reference range [...] 28 Lab Interpretation Abnormal (test code = 32706-0) [facility], [id number] 15:42:21 Test Item Value Reference Range Interpretation Comments pH, Arterial (test code 7.35 7.35-7.45 = 2744-1) pCO2, Arterial (test 52 See_Comment H [Autom ated message] code = 2018-10) The system [employer] generated this result transmit yanely reference range : 35 - 45 mm Hg. The reference range was not used to interpret this result as normal/abnormal . pO2, Arterial (test 58 See_Comment L [Automa yanely message] code = 2703-7) The system [employer] generated this result transmit yanely reference range [...] 28 Lab Interpretation Abnormal (test code = 63809-4) [facility], [id number] 15:42:21 Test Item Value Reference Range Interpretation Comments pH, Arterial (test code 7.35 7.35-7.45 = 2744-1) pCO2, Arterial (test 52 See_Comment H [Autom ated message] code = 2019-) The system [employer] generated this result transmit yanely reference range : 35 - 45 mm Hg. The reference range was not used to interpret this result as normal/abnormal . pO2, Arterial (test 58 See_Comment L [Automa yanely message] code = 2703-7) The system [employer] generated this result transmit yanely reference range [...] 28 Lab Interpretation Abnormal (test code = 43384-9) [facility] gas, [id number] 15:42:21 Test Item Value Reference Range Interpretation Comments pH, Arterial (test code 7.35 7.35-7.45 = 2744-1) pCO2, Arterial (test 52 See_Comment H [Autom ated message] code = 2018-) The system [employer] generated this result transmit yanely reference range : 35 - 45 mm Hg. The reference range was not used to interpret this result as normal/abnormal . pO2, Arterial (test 58 See_Comment L [Automa yanely message] code = 2703-7) The system [employer] generated this result transmit yanely reference range [...] 28 Lab Interpretation Abnormal (test code = 48748-8) [facility], [id number] 15:42:21 Test Item Value Reference Range Interpretation Comments pH, Arterial (test code 7.35 7.35-7.45 = 2744-1) pCO2, Arterial (test 52 See_Comment H [Autom ated message] code = 2018-) The system [employer] generated this result transmit yanely reference range : 35 - 45 mm Hg. The reference range was not used to interpret this result as normal/abnormal . pO2, Arterial (test 58 See_Comment L [Automa yanely message] code = 2703-7) The system [employer] generated this result transmit yanely reference range [...] 28 Lab Interpretation Abnormal (test code = 86067-7) [facility] gas, [id number] 15:42:21 Test Item Value Reference Range Interpretation Comments pH, Arterial (test code 7.35 7.35-7.45 = 2744-1) pCO2, Arterial (test 52 See_Comment H [Autom ated message] code = 2018-10) The system [employer] generated this result transmit yanely reference range : 35 - 45 mm Hg. The reference range was not used to interpret this result as normal/abnormal . pO2, Arterial (test 58 See_Comment L [Automa yanely message] code = 2703-7) The system [employer] generated this result transmit yanely reference range [...] 28 Lab Interpretation Abnormal (test code = 50221-4) [facility], [id number] 15:42:21 Test Item Value Reference Range Interpretation Comments pH, Arterial (test code 7.35 7.35-7.45 = 2744-1) pCO2, Arterial (test 52 See_Comment H [Autom ated message] code = 2018-10) The system [employer] generated this result transmit yanely reference range : 35 - 45 mm Hg. The reference range was not used to interpret this result as normal/abnormal . pO2, Arterial (test 58 See_Comment L [Automa yanely message] code = 2703-7) The system [facility] generated this result transmit yanely [...] 28 Lab Interpretation Abnormal (test code = 50147-7) [facility] gas, [id number] 15:42:21 Test Item Value Reference Range Interpretation Comments pH, Arterial (test code 7.35 7.35-7.45 = 2744-1) pCO2, Arterial (test 52 See_Comment H [Autom ated message] code = 2018-10) The system [facility] generated this result transmit yanely reference range : 35 - 45 mm Hg. The reference range was not used to interpret this result as normal/abnormal . pO2, Arterial (test 58 See_Comment L [Automa yanely message] code = 2703-7) The system [facility] generated this result transmit yanely [...] 28 Lab Interpretation Abnormal (test code = 43004-3) [facility], [id number] 15:42:21 Test Item Value Reference Range Interpretation Comments pH, Arterial (test code 7.35 7.35-7.45 = 2744-1) pCO2, Arterial (test 52 See_Comment H [Autom ated message] code = 2018-10) The system [employer] generated this result transmit yanely reference range : 35 - 45 mm Hg. The reference range was not used to interpret this result as normal/abnormal . pO2, Arterial (test 58 See_Comment L [Automa yanely message] code = 2703-7) The system [employer] generated this result transmit yanely reference range [...] 28 Lab Interpretation Abnormal (test code = 95676-8) [facility], [id number] 15:42:21 Test Item Value Reference Range Interpretation Comments pH, Arterial (test code 7.35 7.35-7.45 = 2744-1) pCO2, Arterial (test 52 See_Comment H [Autom ated message] code = 2019) The system [employer] generated this result transmit yanely reference range : 35 - 45 mm Hg. The reference range was not used to interpret this result as normal/abnormal . pO2, Arterial (test 58 See_Comment L [Automa yanely message] code = 2703-7) The system [employer] generated this result transmit yanely reference range [...] 28 Lab Interpretation Abnormal (test code = 47553-2) [facility], [id number] 15:42:21 Test Item Value Reference Range Interpretation Comments pH, Arterial (test code 7.35 7.35-7.45 = 2744-1) pCO2, Arterial (test 52 See_Comment H [Autom ated message] code = 2018-10) The system [employer] generated this result transmit yanely reference range : 35 - 45 mm Hg. The reference range was not used to interpret this result as normal/abnormal . pO2, Arterial (test 58 See_Comment L [Automa yanely message] code = 2703-7) The system [employer] generated this result transmit yanely reference range [...] 28 Lab Interpretation Abnormal (test code = 92438-7) [facility], [id number] 15:42:21 Test Item Value Reference Range Interpretation Comments pH, Arterial (test code 7.35 7.35-7.45 = 2744-1) pCO2, Arterial (test 52 See_Comment H [Autom ated message] code = 2018-10) The system [facility] generated this result transmit yanely reference range : 35 - 45 mm Hg. The reference range was not used to interpret this result as normal/abnormal . pO2, Arterial (test 58 See_Comment L [Automa yanely message] code = 2703-7) The system [employer] generated this result transmit yanely reference range [...] 28 Lab Interpretation Abnormal (test code = 32781-0) [facility], [id number] 15:42:21 Test Item Value Reference Range Interpretation Comments pH, Arterial (test code 7.35 7.35-7.45 = 2744-1) pCO2, Arterial (test 52 See_Comment H [Autom ated message] code = 2019-8) The system [facility] generated this result transmit yanely reference range : 35 - 45 mm Hg. The reference range was not used to interpret this result as normal/abnormal . pO2, Arterial (test 58 See_Comment L [Automa yanely message] code = 2703-7) The system [facility] generated this result transmit yanely [...] 28 Lab Interpretation Abnormal (test code = 02861-6) [facility], [id number] 15:42:21 Test Item Value Reference Range Interpretation Comments pH, Arterial (test code 7.35 7.35-7.45 = 2744-1) pCO2, Arterial (test 52 See_Comment H [Autom ated message] code = 2019-) The system [employer] Testing generated this result transmit yanely reference range : 35 - 45 mm Hg. The reference range was not used to interpret this result as normal/abnormal . pO2, Arterial (test 58 See_Comment L [Automa yanely message] code = 2703-7) The system [employer] generated this result transmit yanely reference range [...] = 8310-5) FIO2 (test code = 1819) 28.0 Lab Interpretation Abnormal (test code = 23221-8) [facility] [id number] 15:42:21 Test Item Value Reference Range Interpretation Comments pH, Arterial (test code 7.35 7.35-7.45 = 2744-1) pCO2, Arterial (test 52 See_Comment H [Autom ated message] code = 2018-10) The system [facility] generated this result transmit yanely reference range : 35 - 45 mm Hg. The reference range was not used to interpret this result as normal/abnormal . pO2, Arterial (test 58 See_Comment L [Automa yanely message] code = 2703-7) The system [facility] generated this result transmit yanely [...] = 8310-5) FIO2 (test code = 1819) 28.0 Lab Interpretation Abnormal (test code = 07328-5) [facility] [id number] 15:42:21 Test Item Value Reference Range Interpretation Comments pH, Arterial (test code 7.35 7.35-7.45 = 2744-1) pCO2, Arterial (test 52 See_Comment H [Autom ated message] code = 2019-) The system [employer] generated this result transmit yanely reference range : 35 - 45 mm Hg. The reference range was not used to interpret this result as normal/abnormal . pO2, Arterial (test 58 See_Comment L [Automa yanely message] code = 2703-7) The system [employer] generated this result transmit yanely reference range [...] = 8310-5) FIO2 (test code = 1819) 28.0 Lab Interpretation Abnormal (test code = 38591-2) [facility] gas, [id number] 15:42:21 Test Item Value Reference Range Interpretation Comments pH, Arterial (test code 7.35 7.35-7.45 = 2744-1) pCO2, Arterial (test 52 See_Comment H [Autom ated message] code = 2018-10) The system [employer] generated this result transmit yanely reference range : 35 - 45 mm Hg. The reference range was not used to interpret this result as normal/abnormal . pO2, Arterial (test 58 See_Comment L [Automa yanely message] code = 2703-7) The system [employer] generated this result transmit yanely reference range [...] = 8310-5) FIO2 (test code = 1819) 28.0 Lab Interpretation Abnormal (test code = 93118-7) [facility] [id number] 15:42:21 Test Item Value Reference Range Interpretation Comments pH, Arterial (test code 7.35 7.35-7.45 = 2744-1) pCO2, Arterial (test 52 See_Comment H [Autom ated message] code = 2019-8) The system [facility] generated this result transmit yanely reference range : 35 - 45 mm Hg. The reference range was not used to interpret this result as normal/abnormal . pO2, Arterial (test 58 See_Comment L [Automa yanely message] code = 2703-7) The system [facility] generated this result transmit yanely [...] 28 Lab Interpretation Abnormal (test code = 89963-0) [facility] GAS, [id number] 15:42:21 Test Item Value Reference Range Interpretation [...] (BEAKER) (test code = 1819) 28.0 POCT-GLUCOSE [id number] 13:37:24 Test Item Value Reference Range Interpretation Comments POC-GLUCOSE METER 99 mg/dL 70-110 : TESTED A T [facility] 6720 (BEAKER) (test code = DELVIN Benson [facility], 1538) [address]: Director Of Strategy & Mobile/Techni charmaine ID = [id number] for Edilberto Velasquez POCT-GLUCOSE [id number] 09:12:45 Test Item Value Reference Range Interpretation Comments POC-GLUCOSE METER 102 mg/dL 70-110 : TESTED A T [facility] 6720 (BEAKER) (test code = DELVIN Benson [place], 1538) [address]: Director Of Strategy & Mobile/Techni charmaine ID = [id number] for SAMANTHA MORA Urine [id number] 14:57:02 Test Item Value Reference Range Interpretation Comments Result (test code = See comment 6463-4) DYAN (test code = DYAN) <10,000 col/mL Gram negative zude77-25,000 col/mL skin flaquito [facility] [id number] 14:57:02 Test Item Value Reference Range Interpretation Comments Result (test code = See comment 6463-4) DYAN (test code = DYAN) <10,000 col/mL Gram negative xzqq70-64,000 col/mL skin flaquito [facility] [id number] 14:57:02 Test Item Value Reference Range Interpretation Comments Result (test code = See comment 6463-4) DYAN (test code = DYAN) <10,000 col/mL Gram negative jojz54-70,000 col/mL skin flaquito [facility] [id number] 14:57:02 Test Item Value Reference Range Interpretation Comments Result (test code = See comment 6463-4) DYAN (test code = DYAN) <10,000 col/mL Gram negative fooo47-51,000 col/mL skin flaquito [facility] [id number] 14:57:02 Test Item Value Reference Range Interpretation Comments Result (test code = See comment 6463-4) DYAN (test code = DYAN) <10,000 col/mL Gram negative oiaw81-76,000 col/mL skin flaquito [facility] [id number] 14:57:02 Test Item Value Reference Range Interpretation Comments Result (test code = See comment 6463-4) DYAN (test code = DYAN) <10,000 col/mL Gram negative dnpb39-37,000 col/mL skin flaquito [facility] [id number] 14:57:02 Test Item Value Reference Range Interpretation Comments Result (test code = See comment 6463-4) DYAN (test code = DYAN) <10,000 col/mL Gram negative gkrj41-53,000 col/mL skin flaquito [facility] [id number] 14:57:02 Test Item Value Reference Range Interpretation Comments Result (test code = See comment 6463-4) DYAN (test code = DYAN) <10,000 col/mL Gram negative ovkf57-53,000 col/mL skin flaquito [facility] [id number] 14:57:02 Test Item Value Reference Range Interpretation Comments Result (test code = See comment 6463-4) DYAN (test code = DYAN) <10,000 col/mL Gram negative ottg74-39,000 col/mL skin flaquito [facility] [id number] 14:57:02 Test Item Value Reference Range Interpretation Comments Result (test code = See comment 6463-4) DYAN (test code = DYAN) <10,000 col/mL Gram negative exno39-62,000 col/mL skin flaquito [facility] [id number] 14:57:02 Test Item Value Reference Range Interpretation Comments Result (test code = See comment 6463-4) DYAN (test code = DYAN) <10,000 col/mL Gram negative giph05-74,000 col/mL skin flaquito [facility] czgxbiz8423-24-67 14:57:02 Test Item Value Reference Range Interpretation Comments Result (test code = See comment 6463-4) DYAN (test code = DYAN) <10,000 col/mL Gram negative hczg10-53,000 col/mL skin flaquito [facility] [id number] 14:57:02 Test Item Value Reference Range Interpretation Comments Result (test code = See comment 6463-4) DYAN (test code = DYAN) <10,000 col/mL Gram negative szdv21-05,000 col/mL skin flaquito [facility] [id number] 14:57:02 Test Item Value Reference Range Interpretation Comments Result (test code = See comment 6463-4) DYAN (test code = DYAN) <10,000 col/mL Gram negative rhsj89-38,000 col/mL skin falquito [facility] [id number] 14:57:02 Test Item Value Reference Range Interpretation Comments Result (test code = See comment 6463-4) DYAN (test code = DYAN) <10,000 col/mL Gram negative nckq56-37,000 col/mL skin flaquito [facility] [id number] 14:57:02 Test Item Value Reference Range Interpretation Comments Result (test code = See comment 6463-4) DYAN (test code = DYAN) <10,000 col/mL Gram negative pnxj91-11,000 col/mL skin flaquito [facility] mlcgpkj1838-48-86 14:57:02 Test Item Value Reference Range Interpretation Comments Result (test code = See comment 6463-4) DYAN (test code = DYAN) <10,000 col/mL Gram negative pdog25-17,000 col/mL skin flaquito [facility] [id number] 14:57:02 Test Item Value Reference Range Interpretation Comments Result (test code = See comment 6463-4) DYAN (test code = DYAN) <10,000 col/mL Gram negative mhlz74-36,000 col/mL skin flaquito [facility] clekgub7692-25-87 14:57:02 Test Item Value Reference Range Interpretation Comments Result (test code = See comment 6463-4) DYAN (test code = DYAN) <10,000 col/mL Gram negative fsyx15-61,000 col/mL skin flaquito [facility] [id number] 14:57:02 Test Item Value Reference Range Interpretation Comments Result (test code = See comment 6463-4) DYAN (test code = DYAN) <10,000 col/mL Gram negative qiwf90-26,000 col/mL skin flaquito [facility] + Reflex to Culture 2021-11-30 14:12:57 Test Item Value Reference Range Interpretation Comments Color, UA (test code Yellow = 5778-6) Clarity, UA (test Hazy code = 5767-9) Specific Perkins, UA 1.030 1.001-1.035 (test code = 5811-5) pH, UA (test code = 5.5 5.0-8.0 5803-2) Protein, UA (test 30 mg/dL Negative A code = 13569-6) Glucose, UA (test Negative Negative code = 365) Ketones, UA (test Negative Negative code = 2514-8) Bilirubin, UA (test Negative Negative code = 17123-9) Blood, UA (test code Negative Negative = 78666-5) Nitrite, UA (test Negative Negative code = 5802-4) Leukocytes, UA (test Trace Negative A code = 5799-2) Urobilinogen, UA 0.2 mg/dL 0.2-1.0 (test code = 08094-7) RBC, UA (test code = 7 See_Comment [Autom ated 20488-4) message] The system which generated this result [...] Bacteria, UA (test None Seen code = 96680-7) Mucus (test code = Moderate 8247-9) Squam Epithel, UA 1 See_Comment [Automate d (test code = 77556-3) messag e] The system which generated this result transmitted reference range : /HPF. The reference range was not used to interpret this result as normal/abnormal . Crystals, Urine (test None Seen code = 01124-6) Uric Acid Crystals Few (test code = 1583) Amorphous Crystals Occasional (test code = 34076-7) Specimen Source (test code = 2795) DYAN (test code = DYAN) Director Of Strategy & Mobile ID - [auto]Director Of Strategy & Mobile ID - [auto]Director Of Strategy & Mobile ID - tech Lab Interpretation Abnormal (test code = 34954-8) [facility] Reflex [facility] Culture 2021-11-30 14:12:57 Test Item Value Reference Range Interpretation Comments Color, UA (test code Yellow = 5778-6) Clarity, UA (test Hazy code = 5767-9) Specific [place], UA 1.030 1.001-1.035 (test code = 5811-5) pH, UA (test code = 5.5 5.0-8.0 5803-2) Protein, UA (test 30 mg/dL Negative A code = 23061-8) Glucose, UA (test Negative Negative code = 365) Ketones, UA (test Negative Negative code = 2514-8) Bilirubin, UA (test Negative Negative code = 15275-9) Blood, UA (test code Negative Negative = 01354-4) Nitrite, UA (test Negative Negative code = 5802-4) Leukocytes, UA (test Trace Negative A code = 5799-2) Urobilinogen, UA 0.2 mg/dL 0.2-1.0 (test code = 82315-6) RBC, UA (test code = 7 See_Comment [Autom ated 12860-1) message] The system which generated this result [...] Bacteria, UA (test None Seen code = 31313-4) Mucus (test code = Moderate 8247-9) Squam Epithel, UA 1 See_Comment [Automate d (test code = 18871-9) messag e] The system which generated this result transmitted reference range : /HPF. The reference range was not used to interpret this result as normal/abnormal . Crystals, Urine (test None Seen code = 90589-0) Uric Acid Crystals Few (test code = 1583) Amorphous Crystals Occasional (test code = 18744-5) Specimen Source (test code = 2795) DYAN (test code = DYAN) Director Of Strategy & Mobile ID - [auto]Director Of Strategy & Mobile ID - [auto]Director Of Strategy & Mobile ID - tech Lab Interpretation Abnormal (test code = 13869-5) [facility] Reflex [facility] Culture 2021-11-30 14:12:57 Test Item Value Reference Range Interpretation Comments Color, UA (test code Yellow = 5778-6) Clarity, UA (test Hazy code = 5767-9) Specific Perkins, UA 1.030 1.001-1.035 (test code = 5811-5) pH, UA (test code = 5.5 5.0-8.0 5803-2) Protein, UA (test 30 mg/dL Negative A code = 61658-4) Glucose, UA (test Negative Negative code = 365) Ketones, UA (test Negative Negative code = 2514-8) Bilirubin, UA (test Negative Negative code = 41271-0) Blood, UA (test code Negative Negative = 18084-4) Nitrite, UA (test Negative Negative code = 5802-4) Leukocytes, UA (test Trace Negative A code = 5799-2) Urobilinogen, UA 0.2 mg/dL 0.2-1.0 (test code = 91420-5) RBC, UA (test code = 7 See_Comment [Autom ated 99826-6) message] The system which generated this result [...] Bacteria, UA (test None Seen code = 79878-3) Mucus (test code = Moderate 8247-9) Squam Epithel, UA 1 See_Comment [Automate d (test code = 40417-5) messag e] The system which generated this result transmitted reference range : /HPF. The reference range was not used to interpret this result as normal/abnormal . Crystals, Urine (test None Seen code = 12647-7) Uric Acid Crystals Few (test code = 1583) Amorphous Crystals Occasional (test code = 96108-6) Specimen Source (test code = 2795) DYAN (test code = DYAN) Director Of Strategy & Mobile ID - [auto]Director Of Strategy & Mobile ID - [auto]Director Of Strategy & Mobile ID - tech Lab Interpretation Abnormal (test code = 84697-4) [facility] Reflex [facility] Culture 2021-11-30 14:12:57 Test Item Value Reference Range Interpretation Comments Color, UA (test code Yellow = 5778-6) Clarity, UA (test Hazy code = 5767-9) Specific Perkins, UA 1.030 1.001-1.035 (test code = 5811-5) pH, UA (test code = 5.5 5.0-8.0 5803-2) Protein, UA (test 30 mg/dL Negative A code = 50321-3) Glucose, UA (test Negative Negative code = 365) Ketones, UA (test Negative Negative code = 2514-8) Bilirubin, UA (test Negative Negative code = 49065-4) Blood, UA (test code Negative Negative = 23508-7) Nitrite, UA (test Negative Negative code = 5802-4) Leukocytes, UA (test Trace Negative A code = 5799-2) Urobilinogen, UA 0.2 mg/dL 0.2-1.0 (test code = 40481-8) RBC, UA (test code = 7 See_Comment [Autom ated 50128-3) message] The system which generated this result [...] Bacteria, UA (test None Seen code = 92815-6) Mucus (test code = Moderate 8247-9) Squam Epithel, UA 1 See_Comment [Automate d (test code = 63702-3) messag e] The system which generated this result transmitted reference range : /HPF. The reference range was not used to interpret this result as normal/abnormal . Crystals, Urine (test None Seen code = 13707-1) Uric Acid Crystals Few (test code = 1583) Amorphous Crystals Occasional (test code = 40887-6) Specimen Source (test code = 2795) DYAN (test code = DYAN) Director Of Strategy & Mobile ID - [auto]Director Of Strategy & Mobile ID - [auto]Director Of Strategy & Mobile ID - tech Lab Interpretation Abnormal (test code = 84778-2) [facility] Reflex [facility] Culture 2021-11-30 14:12:57 Test Item Value Reference Range Interpretation Comments Color, UA (test code Yellow = 5778-6) Clarity, UA (test Hazy code = 5767-9) Specific Perkins, UA 1.030 1.001-1.035 (test code = 5811-5) pH, UA (test code = 5.5 5.0-8.0 5803-2) Protein, UA (test 30 mg/dL Negative A code = 27851-1) Glucose, UA (test Negative Negative code = 365) Ketones, UA (test Negative Negative code = 2514-8) Bilirubin, UA (test Negative Negative code = 92689-2) Blood, UA (test code Negative Negative = 27734-4) Nitrite, UA (test Negative Negative code = 5802-4) Leukocytes, UA (test Trace Negative A code = 5799-2) Urobilinogen, UA 0.2 mg/dL 0.2-1.0 (test code = 66309-1) RBC, UA (test code = 7 See_Comment [Autom ated 14395-3) message] The system which generated this result [...] Bacteria, UA (test None Seen code = 63452-7) Mucus (test code = Moderate 8247-9) Squam Epithel, UA 1 See_Comment [Automate d (test code = 79386-5) messag e] The system which generated this result transmitted reference range : /HPF. The reference range was not used to interpret this result as normal/abnormal . Crystals, Urine (test None Seen code = 35747-1) Uric Acid Crystals Few (test code = 1583) Amorphous Crystals Occasional (test code = 81401-6) Specimen Source (test code = 2795) DYAN (test code = DYAN) Director Of Strategy & Mobile ID - [auto]Director Of Strategy & Mobile ID - [auto]Director Of Strategy & Mobile ID - tech Lab Interpretation Abnormal (test code = 42946-7) [facility] Reflex to Culture 2021-11-30 14:12:57 Test Item Value Reference Range Interpretation Comments Color, UA (test code Yellow = 5778-6) Clarity, UA (test Hazy code = 5767-9) Specific Perkins, UA 1.030 1.001-1.035 (test code = 5811-5) pH, UA (test code = 5.5 5.0-8.0 5803-2) Protein, UA (test 30 mg/dL Negative A code = 43176-1) Glucose, UA (test Negative Negative code = 365) Ketones, UA (test Negative Negative code = 2514-8) Bilirubin, UA (test Negative Negative code = 33874-1) Blood, UA (test code Negative Negative = 93907-8) Nitrite, UA (test Negative Negative code = 5802-4) Leukocytes, UA (test Trace Negative A code = 5799-2) Urobilinogen, UA 0.2 mg/dL 0.2-1.0 (test code = 67664-7) RBC, UA (test code = 7 See_Comment [Autom ated 72806-1) message] The system which generated this result [...] Bacteria, UA (test None Seen code = 32471-3) Mucus (test code = Moderate 8247-9) Squam Epithel, UA 1 See_Comment [Automate d (test code = 23096-5) messag e] The system which generated this result transmitted reference range : /HPF. The reference range was not used to interpret this result as normal/abnormal . Crystals, Urine (test None Seen code = 76218-5) Uric Acid Crystals Few (test code = 1583) Amorphous Crystals Occasional (test code = 34287-7) Specimen Source (test code = 2795) DYAN (test code = DYAN) Director Of Strategy & Mobile ID - [auto]Director Of Strategy & Mobile ID - [auto]Director Of Strategy & Mobile ID - tech Lab Interpretation Abnormal (test code = 16923-7) [facility] Reflex to Culture 2021-11-30 14:12:57 Test Item Value Reference Range Interpretation Comments Color, UA (test code Yellow = 5778-6) Clarity, UA (test Hazy code = 5767-9) Specific Perkins, UA 1.030 1.001-1.035 (test code = 5811-5) pH, UA (test code = 5.5 5.0-8.0 5803-2) Protein, UA (test 30 mg/dL Negative A code = 68107-4) Glucose, UA (test Negative Negative code = 365) Ketones, UA (test Negative Negative code = 2514-8) Bilirubin, UA (test Negative Negative code = 42721-4) Blood, UA (test code Negative Negative = 12334-6) Nitrite, UA (test Negative Negative code = 5802-4) Leukocytes, UA (test Trace Negative A code = 5799-2) Urobilinogen, UA 0.2 mg/dL 0.2-1.0 (test code = 65014-2) RBC, UA (test code = 7 See_Comment [Autom ated 06931-6) message] The system which generated this result [...] Bacteria, UA (test None Seen code = 82554-6) Mucus (test code = Moderate 8247-9) Squam Epithel, UA 1 See_Comment [Automate d (test code = 52575-0) messag e] The system which generated this result transmitted reference range : /HPF. The reference range was not used to interpret this result as normal/abnormal . Crystals, Urine (test None Seen code = 50500-1) Uric Acid Crystals Few (test code = 1583) Amorphous Crystals Occasional (test code = 98320-5) Specimen Source (test code = 2795) DYAN (test code = DYAN) Director Of Strategy & Mobile ID - [auto]Director Of Strategy & Mobile ID - [auto]Director Of Strategy & Mobile ID - tech Lab Interpretation Abnormal (test code = 60838-1) [facility] Reflex to Culture 2021-11-30 14:12:57 Test Item Value Reference Range Interpretation Comments Color, UA (test code Yellow = 5778-6) Clarity, UA (test Hazy code = 5767-9) Specific [place], UA 1.030 1.001-1.035 (test code = 5811-5) pH, UA (test code = 5.5 5.0-8.0 5803-2) Protein, UA (test 30 mg/dL Negative A code = 65536-1) Glucose, UA (test Negative Negative code = 365) Ketones, UA (test Negative Negative code = 2514-8) Bilirubin, UA (test Negative Negative code = 41604-6) Blood, UA (test code Negative Negative = 56841-6) Nitrite, UA (test Negative Negative code = 5802-4) Leukocytes, UA (test Trace Negative A code = 5799-2) Urobilinogen, UA 0.2 mg/dL 0.2-1.0 (test code = 83827-0) RBC, UA (test code = 7 See_Comment [Autom ated 54928-4) message] The system which generated this result [...] Bacteria, UA (test None Seen code = 18153-5) Mucus (test code = Moderate 8247-9) Squam Epithel, UA 1 See_Comment [Automate d (test code = 47863-9) messag e] The system which generated this result transmitted reference range : /HPF. The reference range was not used to interpret this result as normal/abnormal . Crystals, Urine (test None Seen code = 41523-4) Uric Acid Crystals Few (test code = 1583) Amorphous Crystals Occasional (test code = 68165-5) Specimen Source (test code = 2795) DYAN (test code = DYAN) Director Of Strategy & Mobile ID - [auto]Director Of Strategy & Mobile ID - [auto]Director Of Strategy & Mobile ID - tech Lab Interpretation Abnormal (test code = 17012-7) [facility] Reflex [facility] Culture 2021-11-30 14:12:57 Test Item Value Reference Range Interpretation Comments Color, UA (test code Yellow = 5778-6) Clarity, UA (test Hazy code = 5767-9) Specific [place], UA 1.030 1.001-1.035 (test code = 5811-5) pH, UA (test code = 5.5 5.0-8.0 5803-2) Protein, UA (test 30 mg/dL Negative A code = 37283-5) Glucose, UA (test Negative Negative code = 365) Ketones, UA (test Negative Negative code = 2514-8) Bilirubin, UA (test Negative Negative code = 24292-7) Blood, UA (test code Negative Negative = 35497-7) Nitrite, UA (test Negative Negative code = 5802-4) Leukocytes, UA (test Trace Negative A code = 5799-2) Urobilinogen, UA 0.2 mg/dL 0.2-1.0 (test code = 71085-7) RBC, UA (test code = 7 See_Comment [Autom ated 07654-6) message] The system which generated this result [...] Bacteria, UA (test None Seen code = 35105-5) Mucus (test code = Moderate 8247-9) Squam Epithel, UA 1 See_Comment [Automate d (test code = 91576-8) messag e] The system which generated this result transmitted reference range : /HPF. The reference range was not used to interpret this result as normal/abnormal . Crystals, Urine (test None Seen code = 18596-2) Uric Acid Crystals Few (test code = 1583) Amorphous Crystals Occasional (test code = 35640-0) Specimen Source (test code = 2795) DYAN (test code = DYAN) Director Of Strategy & Mobile ID - [auto]Director Of Strategy & Mobile ID - [auto]Director Of Strategy & Mobile ID - tech Lab Interpretation Abnormal (test code = 97697-9) [facility] Reflex to Culture 2021-11-30 14:12:57 Test Item Value Reference Range Interpretation Comments Color, UA (test code Yellow = 5778-6) Clarity, UA (test Hazy code = 5767-9) Specific [place], UA 1.030 1.001-1.035 (test code = 5811-5) pH, UA (test code = 5.5 5.0-8.0 5803-2) Protein, UA (test 30 mg/dL Negative A code = 97249-4) Glucose, UA (test Negative Negative code = 365) Ketones, UA (test Negative Negative code = 2514-8) Bilirubin, UA (test Negative Negative code = 10303-5) Blood, UA (test code Negative Negative = 64201-3) Nitrite, UA (test Negative Negative code = 5802-4) Leukocytes, UA (test Trace Negative A code = 5799-2) Urobilinogen, UA 0.2 mg/dL 0.2-1.0 (test code = 31027-8) RBC, UA (test code = 7 See_Comment [Autom ated 76226-4) message] The system which generated this result [...] Bacteria, UA (test None Seen code = 18817-2) Mucus (test code = Moderate 8247-9) Squam Epithel, UA 1 See_Comment [Automate d (test code = 52767-5) messag e] The system which generated this result transmitted reference range : /HPF. The reference range was not used to interpret this result as normal/abnormal . Crystals, Urine (test None Seen code = 71329-1) Uric Acid Crystals Few (test code = 1583) Amorphous Crystals Occasional (test code = 03749-7) Specimen Source (test code = 2795) DYAN (test code = DYAN) Director Of Strategy & Mobile ID - [auto]Director Of Strategy & Mobile ID - [auto]Director Of Strategy & Mobile ID - tech Lab Interpretation Abnormal (test code = 98397-4) [facility] Reflex to Culture 2021-11-30 14:12:57 Test Item Value Reference Range Interpretation Comments Color, UA (test code Yellow = 5778-6) Clarity, UA (test Hazy code = 5767-9) Specific Perkins, UA 1.030 1.001-1.035 (test code = 5811-5) pH, UA (test code = 5.5 5.0-8.0 5803-2) Protein, UA (test 30 mg/dL Negative A code = 74795-7) Glucose, UA (test Negative Negative code = 365) Ketones, UA (test Negative Negative code = 2514-8) Bilirubin, UA (test Negative Negative code = 15551-6) Blood, UA (test code Negative Negative = 62827-9) Nitrite, UA (test Negative Negative code = 5802-4) Leukocytes, UA (test Trace Negative A code = 5799-2) Urobilinogen, UA 0.2 mg/dL 0.2-1.0 (test code = 03823-4) RBC, UA (test code = 7 See_Comment [Autom ated 52861-6) message] The system which generated this result [...] Bacteria, UA (test None Seen code = 77770-8) Mucus (test code = Moderate 8247-9) Squam Epithel, UA 1 See_Comment [Automate d (test code = 82212-2) messag e] The system which generated this result transmitted reference range : /HPF. The reference range was not used to interpret this result as normal/abnormal . Crystals, Urine (test None Seen code = 26399-5) Uric Acid Crystals Few (test code = 1583) Amorphous Crystals Occasional (test code = 83581-3) Specimen Source (test code = 2795) DYAN (test code = DYAN) Director Of Strategy & Mobile ID - [auto]Director Of Strategy & Mobile ID - [auto]Director Of Strategy & Mobile ID - tech Lab Interpretation Abnormal (test code = 67666-2) [facility] 2021-11-30 14:12:57 Test Item Value Reference Range Interpretation Comments Color, UA (test code Yellow = 5778-6) Clarity, UA (test Hazy code = 5767-9) Specific Perkins, UA 1.030 1.001-1.035 (test code = 5811-5) pH, UA (test code = 5.5 5.0-8.0 5803-2) Protein, UA (test 30 mg/dL Negative A code = 71837-2) Glucose, UA (test Negative Negative code = 365) Ketones, UA (test Negative Negative code = 2514-8) Bilirubin, UA (test Negative Negative code = 80561-9) Blood, UA (test code Negative Negative = 04751-6) Nitrite, UA (test Negative Negative code = 5802-4) Leukocytes, UA (test Trace Negative A code = 5799-2) Urobilinogen, UA 0.2 mg/dL 0.2-1.0 (test code = 82270-2) RBC, UA (test code = 7 See_Comment [Autom ated 32407-7) message] The system which generated this result [...] Bacteria, UA (test None Seen code = 09085-5) Mucus (test code = Moderate 8247-9) Squam Epithel, UA 1 See_Comment [Automate d (test code = 61433-1) messag e] The system which generated this result transmitted reference range : /HPF. The reference range was not used to interpret this result as normal/abnormal . Crystals, Urine (test None Seen code = 79894-2) Uric Acid Crystals Few (test code = 1583) Amorphous Crystals Occasional (test code = 92262-5) Specimen Source (test code = 2795) DYAN (test code = DYAN) Director Of Strategy & Mobile ID - [auto]Director Of Strategy & Mobile ID - [auto]Director Of Strategy & Mobile ID - tech Lab Interpretation Abnormal (test code = 96665-0) [facility] Culture 2021-11-30 14:12:57 Test Item Value Reference Range Interpretation Comments Color, UA (test code Yellow = 5778-6) Clarity, UA (test Hazy code = 5767-9) Specific Perkins, UA 1.030 1.001-1.035 (test code = 5811-5) pH, UA (test code = 5.5 5.0-8.0 5803-2) Protein, UA (test 30 mg/dL Negative A code = 12128-9) Glucose, UA (test Negative Negative code = 365) Ketones, UA (test Negative Negative code = 2514-8) Bilirubin, UA (test Negative Negative code = 49692-8) Blood, UA (test code Negative Negative = 31900-4) Nitrite, UA (test Negative Negative code = 5802-4) Leukocytes, UA (test Trace Negative A code = 5799-2) Urobilinogen, UA 0.2 mg/dL 0.2-1.0 (test code = 83930-8) RBC, UA (test code = 7 See_Comment [Autom ated 59522-6) message] The system which generated this result [...] Bacteria, UA (test None Seen code = 77935-8) Mucus (test code = Moderate 8247-9) Squam Epithel, UA 1 See_Comment [Automate d (test code = 05236-4) messag e] The system which generated this result transmitted reference range : /HPF. The reference range was not used to interpret this result as normal/abnormal . Crystals, Urine (test None Seen code = 03563-6) Uric Acid Crystals Few (test code = 1583) Amorphous Crystals Occasional (test code = 98510-9) Specimen Source (test code = 2795) DYAN (test code = DYAN) Director Of Strategy & Mobile ID - [auto]Director Of Strategy & Mobile ID - [auto]Director Of Strategy & Mobile ID - tech Lab Interpretation Abnormal (test code = 55085-3) [facility] Culture 2021-11-30 14:12:57 Test Item Value Reference Range Interpretation Comments Color, UA (test code Yellow = 5778-6) Clarity, UA (test Hazy code = 5767-9) Specific Perkins, UA 1.030 1.001-1.035 (test code = 5811-5) pH, UA (test code = 5.5 5.0-8.0 5803-2) Protein, UA (test 30 mg/dL Negative A code = 92452-0) Glucose, UA (test Negative Negative code = 365) Ketones, UA (test Negative Negative code = 2514-8) Bilirubin, UA (test Negative Negative code = 27549-3) Blood, UA (test code Negative Negative = 39221-0) Nitrite, UA (test Negative Negative code = 5802-4) Leukocytes, UA (test Trace Negative A code = 5799-2) Urobilinogen, UA 0.2 mg/dL 0.2-1.0 (test code = 81241-5) RBC, UA (test code = 7 See_Comment [Autom ated 02971-0) message] The system which generated this result [...] Bacteria, UA (test None Seen code = 91164-3) Mucus (test code = Moderate 8247-9) Squam Epithel, UA 1 See_Comment [Automate d (test code = 55225-8) messag e] The system which generated this result transmitted reference range : /HPF. The reference range was not used to interpret this result as normal/abnormal . Crystals, Urine (test None Seen code = 25108-8) Uric Acid Crystals Few (test code = 1583) Amorphous Crystals Occasional (test code = 25315-1) Specimen Source (test code = 2795) DYAN (test code = DYAN) Director Of Strategy & Mobile ID - [auto]Director Of Strategy & Mobile ID - [auto]Director Of Strategy & Mobile ID - tech Lab Interpretation Abnormal (test code = 10309-3) [facility] Culture 2021-11-30 14:12:57 Test Item Value Reference Range Interpretation Comments Color, UA (test code Yellow = 5778-6) Clarity, UA (test Hazy code = 5767-9) Specific Perkins, UA 1.030 1.001-1.035 (test code = 5811-5) pH, UA (test code = 5.5 5.0-8.0 5803-2) Protein, UA (test 30 mg/dL Negative A code = 77929-9) Glucose, UA (test Negative Negative code = 365) Ketones, UA (test Negative Negative code = 2514-8) Bilirubin, UA (test Negative Negative code = 15991-2) Blood, UA (test code Negative Negative = 03821-6) Nitrite, UA (test Negative Negative code = 5802-4) Leukocytes, UA (test Trace Negative A code = 5799-2) Urobilinogen, UA 0.2 mg/dL 0.2-1.0 (test code = 86790-7) RBC, UA (test code = 7 See_Comment [Autom ated 63044-8) message] The system which generated this result [...] Bacteria, UA (test None Seen code = 83631-1) Mucus (test code = Moderate 8247-9) Squam Epithel, UA 1 See_Comment [Automate d (test code = 49178-5) messag e] The system which generated this result transmitted reference range : /HPF. The reference range was not used to interpret this result as normal/abnormal . Crystals, Urine (test None Seen code = 11188-0) Uric Acid Crystals Few (test code = 1583) Amorphous Crystals Occasional (test code = 25235-4) Specimen Source (test code = 2795) DYAN (test code = DYAN) Director Of Strategy & Mobile ID - [auto]Director Of Strategy & Mobile ID - [auto]Director Of Strategy & Mobile ID - tech Lab Interpretation Abnormal (test code = 30233-9) [facility] Ref[facility] Culture 2021-11-30 14:12:57 Test Item Value Reference Range Interpretation Comments Color, UA (test code Yellow = 5778-6) Clarity, UA (test Hazy code = 5767-9) Specific Perkins, UA 1.030 1.001-1.035 (test code = 5811-5) pH, UA (test code = 5.5 5.0-8.0 5803-2) Protein, UA (test 30 mg/dL Negative A code = 61087-3) Glucose, UA (test Negative Negative code = 365) Ketones, UA (test Negative Negative code = 2514-8) Bilirubin, UA (test Negative Negative code = 04314-6) Blood, UA (test code Negative Negative = 46248-7) Nitrite, UA (test Negative Negative code = 5802-4) Leukocytes, UA (test Trace Negative A code = 5799-2) Urobilinogen, UA 0.2 mg/dL 0.2-1.0 (test code = 42079-8) RBC, UA (test code = 7 See_Comment [Autom ated 87707-1) message] The system which generated this result [...] Bacteria, UA (test None Seen code = 56689-2) Mucus (test code = Moderate 8247-9) Squam Epithel, UA 1 See_Comment [Automate d (test code = 33199-9) messag e] The system which generated this result transmitted reference range : /HPF. The reference range was not used to interpret this result as normal/abnormal . Crystals, Urine (test None Seen code = 71958-4) Uric Acid Crystals Few (test code = 1583) Amorphous Crystals Occasional (test code = 63232-6) Specimen Source (test code = 2795) DYAN (test code = DYAN) Director Of Strategy & Mobile ID - [auto]Director Of Strategy & Mobile ID - [auto]Director Of Strategy & Mobile ID - tech Lab Interpretation Abnormal (test code = 67288-4) [facility] Reflex [facility] Culture 2021-11-30 14:12:57 Test Item Value Reference Range Interpretation Comments Color, UA (test code Yellow = 5778-6) Clarity, UA (test Hazy code = 5767-9) Specific Perkins, UA 1.030 1.001-1.035 (test code = 5811-5) pH, UA (test code = 5.5 5.0-8.0 5803-2) Protein, UA (test 30 mg/dL Negative A code = 09087-9) Glucose, UA (test Negative Negative code = 365) Ketones, UA (test Negative Negative code = 2514-8) Bilirubin, UA (test Negative Negative code = 70354-3) Blood, UA (test code Negative Negative = 68056-6) Nitrite, UA (test Negative Negative code = 5802-4) Leukocytes, UA (test Trace Negative A code = 5799-2) Urobilinogen, UA 0.2 mg/dL 0.2-1.0 (test code = 85855-8) RBC, UA (test code = 7 See_Comment [Autom ated 61964-1) message] The system which generated this result [...] Bacteria, UA (test None Seen code = 43122-2) Mucus (test code = Moderate 8247-9) Squam Epithel, UA 1 See_Comment [Automate d (test code = 01797-1) messag e] The system which generated this result transmitted reference range : /HPF. The reference range was not used to interpret this result as normal/abnormal . Crystals, Urine (test None Seen code = 80357-6) Uric Acid Crystals Few (test code = 1583) Amorphous Crystals Occasional (test code = 77046-5) Specimen Source (test code = 2795) DYAN (test code = DYAN) Director Of Strategy & Mobile ID - [auto]Director Of Strategy & Mobile ID - [auto]Director Of Strategy & Mobile ID - tech Lab Interpretation Abnormal (test code = 94125-9) [facility] Reflex [facility] Culture 2021-11-30 14:12:57 Test Item Value Reference Range Interpretation Comments Color, UA (test code Yellow = 5778-6) Clarity, UA (test Hazy code = 5767-9) Specific Perkins, UA 1.030 1.001-1.035 (test code = 5811-5) pH, UA (test code = 5.5 5.0-8.0 5803-2) Protein, UA (test 30 mg/dL Negative A code = 20948-5) Glucose, UA (test Negative Negative code = 365) Ketones, UA (test Negative Negative code = 2514-8) Bilirubin, UA (test Negative Negative code = 68759-4) Blood, UA (test code Negative Negative = 78982-7) Nitrite, UA (test Negative Negative code = 5802-4) Leukocytes, UA (test Trace Negative A code = 5799-2) Urobilinogen, UA 0.2 mg/dL 0.2-1.0 (test code = 68644-6) RBC, UA (test code = 7 See_Comment [Autom ated 44246-3) message] The system which generated this result [...] Bacteria, UA (test None Seen code = 30843-7) Mucus (test code = Moderate 8247-9) Squam Epithel, UA 1 See_Comment [Automate d (test code = 62048-2) messag e] The system which generated this result transmitted reference range : /HPF. The reference range was not used to interpret this result as normal/abnormal . Crystals, Urine (test None Seen code = 73338-9) Uric Acid Crystals Few (test code = 1583) Amorphous Crystals Occasional (test code = 29179-7) Specimen Source (test code = 2795) DYAN (test code = DYAN) Director Of Strategy & Mobile ID - [auto]Director Of Strategy & Mobile ID - [auto]Director Of Strategy & Mobile ID - tech Lab Interpretation Abnormal (test code = 64579-2) [facility] Reflex [facility] Culture 2021-11-30 14:12:57 Test Item Value Reference Range Interpretation Comments Color, UA (test code Yellow = 5778-6) Clarity, UA (test Hazy code = 5767-9) Specific Perkins, UA 1.030 1.001-1.035 (test code = 5811-5) pH, UA (test code = 5.5 5.0-8.0 5803-2) Protein, UA (test 30 mg/dL Negative A code = 12737-8) Glucose, UA (test Negative Negative code = 365) Ketones, UA (test Negative Negative code = 2514-8) Bilirubin, UA (test Negative Negative code = 91689-8) Blood, UA (test code Negative Negative = 89650-0) Nitrite, UA (test Negative Negative code = 5802-4) Leukocytes, UA (test Trace Negative A code = 5799-2) Urobilinogen, UA 0.2 mg/dL 0.2-1.0 (test code = 95628-3) RBC, UA (test code = 7 See_Comment [Autom ated 03634-6) message] The system which generated this result [...] Bacteria, UA (test None Seen code = 54510-4) Mucus (test code = Moderate 8247-9) Squam Epithel, UA 1 See_Comment [Automate d (test code = 49808-0) messag e] The system which generated this result transmitted reference range : /HPF. The reference range was not used to interpret this result as normal/abnormal . Crystals, Urine (test None Seen code = 07776-6) Uric Acid Crystals Few (test code = 1583) Amorphous Crystals Occasional (test code = 00152-4) Specimen Source (test code = 2795) DYAN (test code = DYAN) Director Of Strategy & Mobile ID - [auto]Director Of Strategy & Mobile ID - [auto]Director Of Strategy & Mobile ID - tech Lab Interpretation Abnormal (test code = 75623-4) [facility] Reflex [facility] Culture 2021-11-30 14:12:57 Test Item Value Reference Range Interpretation Comments Color, UA (test code Yellow = 5778-6) Clarity, UA (test Hazy code = 5767-9) Specific Perkins, UA 1.030 1.001-1.035 (test code = 5811-5) pH, UA (test code = 5.5 5.0-8.0 5803-2) Protein, UA (test 30 mg/dL Negative A code = 85356-9) Glucose, UA (test Negative Negative code = 365) Ketones, UA (test Negative Negative code = 2514-8) Bilirubin, UA (test Negative Negative code = 59069-6) Blood, UA (test code Negative Negative = 10527-9) Nitrite, UA (test Negative Negative code = 5802-4) Leukocytes, UA (test Trace Negative A code = 5799-2) Urobilinogen, UA 0.2 mg/dL 0.2-1.0 (test code = 67681-7) RBC, UA (test code = 7 See_Comment [Autom ated 40091-0) message] The system which generated this result [...] Bacteria, UA (test None Seen code = 88302-2) Mucus (test code = Moderate 8247-9) Squam Epithel, UA 1 See_Comment [Automate d (test code = 28432-9) messag e] The system which generated this result transmitted reference range : /HPF. The reference range was not used to interpret this result as normal/abnormal . Crystals, Urine (test None Seen code = 31846-2) Uric Acid Crystals Few (test code = 1583) Amorphous Crystals Occasional (test code = 12317-9) Specimen Source (test code = 2795) DYAN (test code = DYAN) Director Of Strategy & Mobile ID - [auto]Director Of Strategy & Mobile ID - [auto]Director Of Strategy & Mobile ID - tech Lab Interpretation Abnormal (test code = 01037-6) [facility] [id number] 14:12:57 Test Item Value Reference Range Interpretation [...] = 1584) SOURCE(BEAKER) (test code = 2795) Director Of Strategy & Mobile ID - [auto]Director Of Strategy & Mobile ID - [auto]Director Of Strategy & Mobile ID - techBASIC METABOLIC PANEL 2021-11-30 12:39:15 [...] eGF R is based on the CKD-EPI 202 equation that d oes not use a race coefficientEsti mated GFR is not as accur ate as Creatinine Stefani shantel in predicting glom erular filtration rate . Estimated GFR is not appl icable for dialysis patien ts Director Of Strategy & Mobile ID - GUILLAUME MPT/[id number] 12:37:17 Test Item Value Reference Range Interpretation [...] mechanical heart valves.CBC W/PLT COUNT & AUTO [id number] 12:25:05 Test Item Value Reference Range Interpretation [...] (test code = 2801) RAD, CHEST, 2 [id number] 12:25:00Reason for exam:->spasticity, [facility] : 1970 Sex: [...] Dasia Martinez MDReport Verified Date/Time: 11/30/2021 12:25:32 [facility]. METABOLIC PANEL (22542)2021-08-25 13:54:03 Test Item Value Reference Range Interpretation Comments NA (test code = 142 mmol/L 135-145 2566297969) K (test code = 4.8 mmol/L 3.5-5.0 4243342311) CL (test code = 104 mmol/L 98-108 3822597840) CO2 TOTAL (test code = 28 mmol/L 23-31 1316541990) AGAP (test code = 2-16 7880577154) BUN (test code = 14 mg/dL 7-23 7877961035) GLUCOSE (test code = 129 mg/dL 70-110 H 1610025161) CREATININE (test code = 0.52 mg/dL 0.60-1.25 L 1736757952) TOTAL BILI (test code = 0.5 mg/dL 0.1-1.4 0992744560) CALCIUM (test code = 9.1 mg/dL 8.6-10.6 2071361271) T PROTEIN (test code = 8.3 g/dL 6.3-8.2 H 0199709702) ALBUMIN (test code = 4.4 g/dL 3.5-5.0 0218350332) ALK PHOS (test code = 116 U/L 34-122 7642254383) ALTv (test code = 52 U/L 5-50 H 1742-6) AST(SGOT) (test code = 34 U/L 13-40 1430542118) eGFR (test code = mL/min/1.73m2 6418855050) DYAN (test code = DYAN) Association of [...] tests). Lab Interpretation Abnormal (test code = 92396-8) [facility] 13[facility]53:43 Test Item Value Reference Range Interpretation Comments LIPASE (test code = 7562446363) 127 U/L 0-220 Lab Interpretation (test code = Normal 38737-7) [facility] + LACTIC [id number] 13:50:06 Test Item Value Reference Range Interpretation Comments PH (test code = 7.32-7.42 1160764015) PCO2 TODD (test code = See_Comment [Auto mated 1370620581) message] The sy stem which generated this result transmitted reference range : 41 - 51 mmHg. The reference range was not used to interpret this result as normal/abnormal . PO2 TODD (test code = See_Comment HH [Autom ated 3725069234) message] The sy stem which generated this result transmitted reference range : 25 - 40 mmHg. The reference range was not used to interpret this result as normal/abnormal . HCO3 TODD (test code = See_Comment [Auto mated 5284784232) message] The sy stem which generated this result transmitted reference range : 24 - 28 mEq/L. The reference range was not used to interpret this result as normal/abnormal . AC VBE(BEAKER) (test mEq/L code = 6435782096) THB TODD (test code = 15.1 g/dL 13.5-18.0 7140673383) %O2HB TODD (test code = 90.2 % 52.0-63.0 H 1435394382) %COHB TODD (test code = 0.7 % 0.0-1.5 6733280842) %METHB TODD (test code = 0.3 % 0.4-1.5 L 1499802587) VOL%O2 TODD (test code = 19.1 % 6.0-12.0 H 8146448898) NA (test code = 141 mmol/L 135-145 3395459374) K+ (test code = 4.9 mmol/L 3.5-5.0 7713536612) AC CA IONZ (test code = 4.80 mg/dL 4.50-5.30 0637727638) GLUCOSE (test code = 120 mg/dL 70-110 H 9102467663) LACTIC ACID (test code 1.68 mmol/L 0.50-2.20 = 5882209206) Lab Interpretation Abnormal (test code = 00621-9) [facility] WITH [id number] 13:39:19 Test Item Value Reference Range Interpretation Comments WBC (test code = See_Comment H [Automated 7943-2) message] The system which generated this result transmit yanely reference range : 4.20 - 10.70 10*3/?L. The reference range was not used to interpret this result as normal/abnormal . RBC (test code = See_Comment H [Automated 109-8) message] The system which generated this result [...] RDW-SD (test code = 44.9 fL 38.5-51.6 40572-4) RDW-CV (test code = 18.4 % 12.1-15.4 H 788-0) PLT (test code = See_Comment H [Automated 777-3) message] The system which generated this result transmit yanely reference range : 150 - 328 10*3/ ?L. The reference range was not u sed to interpret th is result as normal/abnormal . MPV (test code = 9.6 fL 9.8-13.0 L 31733-2) NRBC/100 WBC (test See_Comment [Automat ed code = 7907751599) message] The system which generated this result transmit yanely reference range : 0.0 - 10.0 /100 WBCs. The reference range was not used to interpret this result as normal/abnormal . NRBC x10^3 (test code <0.01 See_Comment [Auto mated = 4725672240) message] The system which generated this result transmit yanely reference range : 10*3/?L. The reference range was not used to interpret this result as normal/abnormal . GRAN MAT (NEUT) % 74.4 % (test code = 770-8) IMM GRAN % (test code 1.40 % = 9196096474) LYMPH % (test code = 17.5 % 736-9) MONO % (test code = 5.8 % 5905-5) EOS % (test code = 0.6 % 713-8) BASO % (test code = 0.3 % 706-2) GRAN MAT x10^3(ANC) 12.17 10*3/uL 1.99-6.95 H (test code = 2450337928) IMM GRAN x10^3 (test 0.23 10*3/uL 0.00-0.06 H code = 3629431145) LYMPH x10^3 (test code 2.86 10*3/uL 1.09-3.23 = 731-0) MONO x10^3 (test code 0.94 10*3/uL 0.36-1.02 = 742-7) EOS x10^3 (test code = 0.09 10*3/uL 0.06-0.53 711-2) BASO x10^3 (test code 0.05 10*3/uL 0.01-0.09 = 704-7) Lab Interpretation Abnormal (test code = 73808-1) [facility] GLUCOSE (AUTOMATED)2021-08-22 18:24:46 Test Item Value Reference Range Interpretation Comments POCT GLU (test code = 7648344148) 157 mg/dL 70-110 H Lab Interpretation (test code = Abnormal 48297-5) [facility] GLUCOSE (AUTOMATED)2021-08-22 13:58:01 Test Item Value Reference Range Interpretation Comments POCT GLU (test code = 7015671255) 122 mg/dL 70-110 H Lab Interpretation (test code = Abnormal 20524-1) [facility] GLUCOSE (AUTOMATED)2021-08-22 01:13:31 Test Item Value Reference Range Interpretation Comments POCT GLU (test code = 3304276313) 189 mg/dL 70-110 H Lab Interpretation (test code = Abnormal 90241-3) [facility] GLUCOSE (AUTOMATED)2021-08-21 22:41:44 Test Item Value Reference Range Interpretation Comments POCT GLU (test code = 6125051652) 212 mg/dL 70-110 H Lab Interpretation (test code = Abnormal 37180-8) [facility] [id number] 21:08:29 Test Item Value Reference Range Interpretation Comments SPUTUM CULTURE 2+ Respiratory flaquito: (test code = 622-1) Commensal upper respiratory microorganisms only. Gram stain (test Occasional (Rare) code = 664-3) Epithelial cells DYAN (test code = Bacterial pathogens DYAN) associated with lower respiratory infections were not identified, which include Pseudomonas aeruginosa and Staphylococcus aureus (MRSA or MSSA). [facility]AL [id number] 20:51:42 Test Item Value Reference Range Interpretation Comments NT-proBNP (test code 112 pg/mL See_Comment [Autom ated = 5772882192) message] The system which generated this result transmitted reference range : <=125. The reference range was not used to interpret this result as normal/abnormal . DYAN (test code = DYAN) Biotin has been reported to cause a negative bias, interpret results relative to patient's use of biotin. Lab Interpretation Normal (test code = 55280-2) [facility] GLUCOSE (AUTOMATED)2021-08-21 18:09:39 Test Item Value Reference Range Interpretation Comments POCT GLU (test code = 8910712290) 153 mg/dL 70-110 H Lab Interpretation (test code = Abnormal 60214-9) [facility] GLUCOSE (AUTOMATED)2021-08-21 15:09:32 Test Item Value Reference Range Interpretation Comments POCT GLU (test code = 0109588483) 147 mg/dL 70-110 H Lab Interpretation (test code = Abnormal 25151-8) [facility] METABOLIC PANEL (NA, K, CL, CO2, GLUCOSE, BUN, CREATININE, CA)2021-08-21 10:25:30 Test Item Value Reference Range Interpretation Comments NA (test code = 140 mmol/L 135-145 5587281693) K (test code = 4.8 mmol/L 3.5-5.0 1665357207) CL (test code = 102 mmol/L 98-108 8022448176) CO2 TOTAL (test code = 31 mmol/L 23-31 4422736132) AGAP (test code = 2-16 8931913176) BUN (test code = 13 mg/dL 7-23 0678783853) GLUCOSE (test code = 188 mg/dL 70-110 H 1016306140) CREATININE (test code = 0.49 mg/dL 0.60-1.25 L 7938506942) CALCIUM (test code = 9.1 mg/dL 8.6-10.6 6696159385) eGFR (test code = mL/min/1.73m2 2358878768) DYAN (test code = DYAN) Association of [...] tests). Lab Interpretation Abnormal (test code = 95511-1) [facility] WITH [id number] 10:18:23 Test Item Value Reference Range Interpretation Comments WBC (test code = See_Comment H [Automated 1890-2) message] The system which generated this result [...] RDW-SD (test code = 46.3 fL 38.5-51.6 12816-1) RDW-CV (test code = 17.5 % 12.1-15.4 H 788-0) PLT (test code = See_Comment H [Automated 777-3) message] The system which generated this result transmit yanely reference range : 150 - 328 10*3/ ?L. The reference range was not u sed to interpret th is result as normal/abnormal . MPV (test code = 9.4 fL 9.8-13.0 L 97003-3) NRBC/100 WBC (test See_Comment [Automat ed code = 9498077724) message] The system which generated this result transmit yanely reference range : 0.0 - 10.0 /100 WBCs. The reference range was not used to interpret this result as normal/abnormal . NRBC x10^3 (test code <0.01 See_Comment [Auto mated = 5042695302) message] The system which generated this result transmit yanely reference range : 10*3/?L. The reference range was not used to interpret this result as normal/abnormal . GRAN MAT (NEUT) % 86.1 % (test code = 770-8) IMM GRAN % (test code 1.00 % = 9275390841) LYMPH % (test code = 9.8 % 736-9) MONO % (test code = 3.0 % 5905-5) EOS % (test code = 0.0 % 713-8) BASO % (test code = 0.1 % 706-2) GRAN MAT x10^3(ANC) 15.95 10*3/uL 1.99-6.95 H (test code = 4665777727) IMM GRAN x10^3 (test 0.19 10*3/uL 0.00-0.06 H code = 1521630021) LYMPH x10^3 (test code 1.81 10*3/uL 1.09-3.23 = 731-0) MONO x10^3 (test code 0.56 10*3/uL 0.36-1.02 = 742-7) EOS x10^3 (test code = <0.03 0.06-0.53 L 711-2) BASO x10^3 (test code <0.03 0.01-0.09 = 704-7) SERGEI CELLS (test code 2+ See_Comment A [Auto mated = 2450-) message] The system which generated this result transmit yanely reference range : (none). The reference range was not used to interpret this result as normal/abnormal . TOXIC CHANGES (test Present A code = 803-7) Lab Interpretation Abnormal (test code = 06158-1) [facility] GLUCOSE (AUTOMATED)2021-08-21 01:58:23 Test Item Value Reference Range Interpretation Comments POCT GLU (test code = 7859057177) 228 mg/dL 70-110 H Lab Interpretation (test code = Abnormal 90077-5) [facility] GLUCOSE (AUTOMATED)2021-08-20 22:11:58 Test Item Value Reference Range Interpretation Comments POCT GLU (test code = 4842147296) 202 mg/dL 70-110 H Lab Interpretation (test code = Abnormal 93249-1) [facility] GLUCOSE (AUTOMATED)2021-08-20 19:09:00 Test Item Value Reference Range Interpretation Comments POCT GLU (test code = 4320673273) 190 mg/dL 70-110 H Lab Interpretation (test code = Abnormal 07455-4) [facility] GLUCOSE (AUTOMATED)2021-08-20 13:40:23 Test Item Value Reference Range Interpretation Comments POCT GLU (test code = 6847342590) 139 mg/dL 70-110 H Lab Interpretation (test code = Abnormal 77495-2) [facility] GLUCOSE (AUTOMATED)2021-08-20 01:42:48 Test Item Value Reference Range Interpretation Comments POCT GLU (test code = 2206661824) 221 mg/dL 70-110 H Lab Interpretation (test code = Abnormal 44515-9) [facility] GLUCOSE (AUTOMATED)2021-08-19 22:05:17 Test Item Value Reference Range Interpretation Comments POCT GLU (test code = 3256026461) 218 mg/dL 70-110 H Lab Interpretation (test code = Abnormal 61117-3) [facility] GLUCOSE (AUTOMATED)2021-08-19 17:31:39 Test Item Value Reference Range Interpretation Comments POCT GLU (test code = 7077537349) 176 mg/dL 70-110 H Lab Interpretation (test code = Abnormal 00460-8) [facility] 14:23:00 Test Item Value Reference Range Interpretation Comments POCT GLU (test code = 4766124460) 219 mg/dL 70-110 H Lab Interpretation (test code = Abnormal 21364-1) [facility] WITH [id number] 10:07:54 Test Item Value Reference Range Interpretation [...] RDW-SD (test code = 44.0 fL 38.5-51.6 83268-2) RDW-CV (test code = 16.3 % 12.1-15.4 H 788-0) PLT (test code = See_Comment H [Automated 777-3) message] The system which generated this result transmit yanely reference range : 150 - 328 10*3/ ?L. The reference range was not u sed to interpret th is result as normal/abnormal . MPV (test code = 9.2 fL 9.8-13.0 L 23103-6) NRBC/100 WBC (test See_Comment [Automat ed code = 6282777215) message] The system which generated this result transmit yanely reference range : 0.0 - 10.0 /100 WBCs. The reference range was not used to interpret this result as normal/abnormal . NRBC x10^3 (test code <0.01 See_Comment [Auto mated = 9847504328) message] The system which generated this result transmit yanely reference range : 10*3/?L. The reference range was not used to interpret this result as normal/abnormal . GRAN MAT (NEUT) % 87.5 % (test code = 770-8) IMM GRAN % (test code 2.00 % = 5272150795) LYMPH % (test code = 8.9 % 736-9) MONO % (test code = 1.4 % 5905-5) EOS % (test code = 0.0 % 713-8) BASO % (test code = 0.2 % 706-2) GRAN MAT x10^3(ANC) 15.19 10*3/uL 1.99-6.95 H (test code = 8516539871) IMM GRAN x10^3 (test 0.35 10*3/uL 0.00-0.06 H code = 5054797600) LYMPH x10^3 (test code 1.54 10*3/uL 1.09-3.23 [...] . Lab Interpretation Abnormal (test code = 31278-7) [facility] METABOLIC PANEL (NA, K, CL, CO2, GLUCOSE, BUN, CREATININE, CA)2021-08-19 10:01:04 Test Item Value Reference Range Interpretation Comments NA (test code = 137 mmol/L 135-145 2770368939) K (test code = 4.3 mmol/L 3.5-5.0 8439452374) CL (test code = 101 mmol/L 98-108 3150107967) CO2 TOTAL (test code = 31 mmol/L 23-31 0573905201) AGAP (test code = 2-16 8787622012) BUN (test code = 9 mg/dL 7-23 5861873898) GLUCOSE (test code = 202 mg/dL 70-110 H 4411685035) CREATININE (test code = 0.46 mg/dL 0.60-1.25 L 2644486117) CALCIUM (test code = 8.7 mg/dL 8.6-10.6 6434489399) eGFR (test code = mL/min/1.73m2 1901582757) DYAN (test code = DYAN) Association of [...] tests). Lab Interpretation Abnormal (test code = 84414-8) [facility] GLUCOSE (AUTOMATED)2021-08-19 04:12:32 Test Item Value Reference Range Interpretation Comments POCT GLU (test code = 4203520696) 201 mg/dL 70-110 H Lab Interpretation (test code = Abnormal 33234-7) [facility] GLUCOSE (AUTOMATED)2021-08-19 01:13:04 Test Item Value Reference Range Interpretation Comments POCT GLU (test code = 3611543412) 319 mg/dL 70-110 H Lab Interpretation (test code = Abnormal 82080-0) [facility] GLUCOSE (AUTOMATED)2021-08-18 22:24:04 Test Item Value Reference Range Interpretation Comments POCT GLU (test code = 2816889213) 241 mg/dL 70-110 H Lab Interpretation (test code = Abnormal 53269-6) [facility] GLUCOSE (AUTOMATED)2021-08-18 13:38:10 Test Item Value Reference Range Interpretation Comments POCT GLU (test code = 5340118747) 106 mg/dL 70-110 Lab Interpretation (test code = Normal 84061-4) [facility] CULTURE [id number] 12:01:11 Test Item Value Reference Range Interpretation Comments Blood Culture-Aerobic No organisms No growth Previo us (test code = 35189-2) isolated prelim inary verified result was Culture [...] Culture-Anaerobic isolated preliminar y (test code = 23535-5) verifi ed result was Culture In Progress [...] CDT Lab Interpretation Normal (test code = 68676-3) [facility] CULTURE [id number] 12:01:11 Test Item Value Reference Range Interpretation Comments Blood Culture-Aerobic No organisms No growth Previo us (test code = 36259-2) isolated prelim inary verified result was Culture [...] Culture-Anaerobic isolated preliminar y (test code = 59091-2) verifi ed result was Culture In Progress [...] CDT Lab Interpretation Normal (test code = 11145-6) [facility] GLUCOSE (AUTOMATED)2021-08-17 22:25:31 Test Item Value Reference Range Interpretation Comments POCT GLU (test code = 0900576072) 133 mg/dL 70-110 H Lab Interpretation (test code = Abnormal 68804-6) [facility] GLUCOSE (AUTOMATED)2021-08-17 16:42:32 Test Item Value Reference Range Interpretation Comments POCT GLU (test code = 5703786483) 134 mg/dL 70-110 H Lab Interpretation (test code = Abnormal 62647-4) [facility] GLUCOSE (AUTOMATED)2021-08-17 13:15:19 Test Item Value Reference Range Interpretation Comments POCT GLU (test code = 3659584081) 113 mg/dL 70-110 H Lab Interpretation (test code = Abnormal 25320-0) [facility] WITH [id number] 11:10:34 Test Item Value Reference Range Interpretation [...] RDW-SD (test code = 44.9 fL 38.5-51.6 17298-1) RDW-CV (test code = 16.4 % 12.1-15.4 H 788-0) PLT (test code = See_Comment H [Automated 777-3) message] The sy stem which generated this result transmitted reference range : 150 - 328 10*3/ ?L. The reference r matthieu was not used to interpret this result as normal/abnormal . MPV (test code = 9.0 fL 9.8-13.0 L 09558-4) NRBC/100 WBC (test See_Comment [Automat ed code = 1496137407) message] The system which generated this result transmitted reference range : 0.0 - 10.0 /100 WBCs. The refer ence range was not u sed to interpret th is result as normal/abnormal . NRBC x10^3 (test code <0.01 See_Comment [Auto mated = 7088652237) message] The s ystem which generated this result transmitted reference range : 10*3/?L. The reference range was not used to interpret this result as normal/abnormal . GRAN MAT (NEUT) % 63.0 % (test code = 770-8) IMM GRAN % (test code 3.10 % = 7311762414) LYMPH % (test code = 20.3 % 736-9) MONO % (test code = 9.9 % 5905-5) EOS % (test code = 3.2 % 713-8) BASO % (test code = 0.5 % 706-2) GRAN MAT x10^3(ANC) 8.24 10*3/uL 1.99-6.95 H (test code = 4121571582) IMM GRAN x10^3 (test 0.40 10*3/uL 0.00-0.06 H code = 4047065057) LYMPH x10^3 (test code 2.66 10*3/uL 1.09-3.23 = 731-0) MONO x10^3 (test code 1.30 10*3/uL 0.36-1.02 H = 742-7) EOS x10^3 (test code = 0.42 10*3/uL 0.06-0.53 711-2) BASO x10^3 (test code 0.07 10*3/uL 0.01-0.09 = 704-7) Lab Interpretation Abnormal (test code = 84941-2) [facility] METABOLIC PANEL (NA, K, CL, CO2, GLUCOSE, BUN, CREATININE, CA)2021-08-17 10:51:30 Test Item Value Reference Range Interpretation Comments NA (test code = 138 mmol/L 135-145 7992856308) K (test code = 3.5 mmol/L 3.5-5.0 1171959182) CL (test code = 104 mmol/L 98-108 5240347296) CO2 TOTAL (test code = 30 mmol/L 23-31 7449008322) AGAP (test code = 2-16 1681828856) BUN (test code = 6 mg/dL 7-23 L 5174534337) GLUCOSE (test code = 106 mg/dL 70-110 1602930821) CREATININE (test code = 0.57 mg/dL 0.60-1.25 L 9699516527) CALCIUM (test code = 8.0 mg/dL 8.6-10.6 L 9778249713) eGFR (test code = mL/min/1.73m2 8157971576) DYAN (test code = DYAN) Association of [...] tests). Lab Interpretation Abnormal (test code = 82804-7) [facility] GLUCOSE (AUTOMATED)2021-08-17 02:12:29 Test Item Value Reference Range Interpretation Comments POCT GLU (test code = 6885251821) 128 mg/dL 70-110 H Lab Interpretation (test code = Abnormal 11668-2) [facility] GLUCOSE (AUTOMATED)2021-08-16 21:48:26 Test Item Value Reference Range Interpretation Comments POCT GLU (test code = 8107220750) 98 mg/dL 70-110 Lab Interpretation (test code = Normal 03875-6) [facility] [id number] 19:19:08 Test Item Value Reference Range Interpretation Comments SPUTUM CULTURE 1+ Respiratory flaquito: (test code = 622-1) Commensal upper respiratory microorganisms only. Gram stain (test Occasional (Rare) code = 664-3) Epithelial cells DYAN (test code = Bacterial pathogens DYAN) associated with lower respiratory infections were not identified, which include Pseudomonas aeruginosa and Staphylococcus aureus (MRSA or MSSA). [facility] 16:54:21 Test Item Value Reference Range Interpretation Comments POCT GLU (test code = 3576007670) 178 mg/dL 70-110 H Lab Interpretation (test code = Abnormal 84254-1) [facility] 15:55:34 Test Item Value Reference Range Interpretation Comments Procalcitonin (test 0.12 ng/mL <0.08 H code = 7250643901) DYAN (test code = DYAN) INTERPRETATION OF [...] lung abscess/empyema. For further information please refer to:[email or web address] Lab Interpretation Abnormal (test code = 70337-3) [facility] GLUCOSE (AUTOMATED)2021-08-16 12:48:02 Test Item Value Reference Range Interpretation Comments POCT GLU (test code = 1343295225) 108 mg/dL 70-110 Lab Interpretation (test code = Normal 97959-5) [facility] GLUCOSE (AUTOMATED)2021-08-16 01:28:57 Test Item Value Reference Range Interpretation Comments POCT GLU (test code = 5973089585) 129 mg/dL 70-110 H Lab Interpretation (test code = Abnormal 87893-1) [facility] GLUCOSE (AUTOMATED)2021-08-15 21:58:26 Test Item Value Reference Range Interpretation Comments POCT GLU (test code = 7811342686) 116 mg/dL 70-110 H Lab Interpretation (test code = Abnormal 11349-5) [facility] GLUCOSE (AUTOMATED)2021-08-15 16:31:54 Test Item Value Reference Range Interpretation Comments POCT GLU (test code = 2879244437) 145 mg/dL 70-110 H Lab Interpretation (test code = Abnormal 52903-3) [facility] GLUCOSE (AUTOMATED)2021-08-15 12:37:05 Test Item Value Reference Range Interpretation Comments POCT GLU (test code = 8064894553) 123 mg/dL 70-110 H Lab Interpretation (test code = Abnormal 03246-2) [facility] METABOLIC PANEL (NA, K, CL, CO2, GLUCOSE, BUN, CREATININE, CA)2021-08-15 11:03:43 Test Item Value Reference Range Interpretation Comments NA (test code = 139 mmol/L 135-145 4962245663) K (test code = 3.9 mmol/L 3.5-5.0 8622127944) CL (test code = 99 mmol/L 98-108 7879185513) CO2 TOTAL (test code = 34 mmol/L 23-31 H 8044219136) AGAP (test code = 2-16 8838711568) BUN (test code = 8 mg/dL 7-23 3181373697) GLUCOSE (test code = 99 mg/dL 70-110 2927471421) CREATININE (test code = 0.67 mg/dL 0.60-1.25 8030439884) CALCIUM (test code = 8.3 mg/dL 8.6-10.6 L 9247813107) eGFR (test code = mL/min/1.73m2 5988165555) DYAN (test code = DYAN) Association of [...] tests). Lab Interpretation Abnormal (test code = 36407-3) [facility] 11:03:43 Test Item Value Reference Range Interpretation Comments MAGNESIUM (test code = 4707201987) 2.0 mg/dL 1.7-2.4 Lab Interpretation (test code = Normal 57845-4) [facility] Center[facility] WITHOUT [id number] 10:45:01 Test Item Value Reference Range Interpretation Comments WBC (test code = 6690-2) See_Comment H [A utomated message] The system [employer] generated this result transmit yanely reference range : 4.20 - 10.70 10*3/?L. The reference range was not used to interpret this result as normal/abnormal . RBC (test code = 789-8) See_Comment [Au tomated message] The system [employer] generated this result transmit yanely reference range [...] 777-3) See_Comment [Au tomated message] The system [employer] generated this result transmit yanely reference range : 150 - 328 10*3/?L. The reference range was not used to interpret this result as normal/abnormal . MPV (test code = 9.3 fL 9.8-13.0 L 94369-3) RDW-CV (test code = 16.7 % 12.1-15.4 H 788-0) RDW-SD (test code = 45.9 fL 38.5-51.6 05643-4) NRBC x10^3 (test code = <0.01 See_Comment [Au tomated message] 7301848381) The system [facility] h generated this result transmit yanely reference range : 10*3/?L. The reference range was not used to interpret this result as normal/abnormal . NRBC/100 WBC (test code See_Comment [Au tomated message] = 0910736263) The system [facility] generated this result transmit yanely reference range : 0.0 - 10.0 /100 WBC s. The reference r matthieu was not used to interpret this result as normal/abnormal . IPF % (test code = 0984246358) Lab Interpretation (test Abnormal code = 84238-5) [facility] GLUCOSE (AUTOMATED)2021-08-15 02:13:04 Test Item Value Reference Range Interpretation Comments POCT GLU (test code = 4925127484) 108 mg/dL 70-110 Lab Interpretation (test code = Normal 58722-6) [facility] GLUCOSE (AUTOMATED)2021-08-14 21:29:00 Test Item Value Reference Range Interpretation Comments POCT GLU (test code = 3359651449) 103 mg/dL 70-110 Lab Interpretation (test code = Normal 98739-2) [facility] with [id number] 10:02:33 Test Item Value Reference Range Interpretation Comments WBC (test code = See_Comment H [Automated 6390-2) message] The system which generated this result transmit yanely reference range : 4.20 - 10.70 10*3/?L. The reference range was not used to interpret this result as normal/abnormal . RBC (test code = See_Comment [Automated 079-8) message] The system which generated this result [...] RDW-SD (test code = 46.1 fL 38.5-51.6 67122-7) RDW-CV (test code = 16.7 % 12.1-15.4 H 788-0) PLT (test code = See_Comment [Automated 777-3) message] The system which generated this result transmit yanely reference range : 150 - 328 10*3/ ?L. The reference range was not u sed to interpret th is result as normal/abnormal . MPV (test code = 9.4 fL 9.8-13.0 L 82155-7) NRBC/100 WBC (test See_Comment [Automat ed code = 2510136580) message] The system which generated this result transmit yanely reference range : 0.0 - 10.0 /100 WBCs. The reference range was not used to interpret this result as normal/abnormal . NRBC x10^3 (test code <0.01 See_Comment [Auto mated = 0876686080) message] The system which generated this result transmit yanely reference range : 10*3/?L. The reference range was not used to interpret this result as normal/abnormal . GRAN MAT (NEUT) % 70.8 % (test code = 770-8) IMM GRAN % (test code 0.90 % = 4114168318) LYMPH % (test code = 18.2 % 736-9) MONO % (test code = 7.8 % 5905-5) EOS % (test code = 1.9 % 713-8) BASO % (test code = 0.4 % 706-2) GRAN MAT x10^3(ANC) 11.32 10*3/uL 1.99-6.95 H (test code = 4003196919) IMM GRAN x10^3 (test 0.15 10*3/uL 0.00-0.06 H code = 9554177478) LYMPH x10^3 (test code 2.91 10*3/uL 1.09-3.23 = 731-0) MONO x10^3 (test code 1.24 10*3/uL 0.36-1.02 H = 742-7) EOS x10^3 (test code = 0.30 10*3/uL 0.06-0.53 711-2) BASO x10^3 (test code 0.07 10*3/uL 0.01-0.09 = 704-7) Lab Interpretation Abnormal (test code = 12123-2) [facility] GLUCOSE (AUTOMATED)2021-08-14 05:21:12 Test Item Value Reference Range Interpretation Comments POCT GLU (test code = 6445585916) 104 mg/dL 70-110 Lab Interpretation (test code = Normal 92569-7) [facility] GLUCOSE (AUTOMATED)2021-08-14 02:33:14 Test Item Value Reference Range Interpretation Comments POCT GLU (test code = 7460392976) 105 mg/dL 70-110 Lab Interpretation (test code = Normal 89781-3) [facility] ([facility]2021-[facility]-13 20:51:09 Test Item Value Reference Range Interpretation Comments HGB A1C (test code = 6.6 % 4.0-5.7 H 4548-4) DYAN (test code = DYAN) Reference RangesNormal: <5.7%Prediabetes: 5.7 - 6.4%Diabetes: > 6.5% Lab Interpretation (test Abnormal code = 22910-3) [facility] GLUCOSE (AUTOMATED)2021-08-13 20:24:32 Test Item Value Reference Range Interpretation Comments POCT GLU (test code = 9737404569) 101 mg/dL 70-110 Lab Interpretation (test code = Normal 41438-8) [facility] GLUCOSE (AUTOMATED)2021-08-13 16:37:49 Test Item Value Reference Range Interpretation Comments POCT GLU (test code = 5234454281) 158 mg/dL 70-110 H Lab Interpretation (test code = Abnormal 39601-1) [facility] (79355)2021-08-13 11:45:52 Test Item Value Reference Range Interpretation Comments NA (test code = 139 mmol/L 135-145 5167772737) K (test code = 3.9 mmol/L 3.5-5.0 6083847432) CL (test code = 101 mmol/L 98-108 8942154870) CO2 TOTAL (test code = 28 mmol/L 23-31 8668609119) AGAP (test code = 2-16 6801190493) BUN (test code = 9 mg/dL 7-23 7268608865) GLUCOSE (test code = 166 mg/dL 70-110 H 4584655688) CREATININE (test code = 0.55 mg/dL 0.60-1.25 L 9009742182) TOTAL BILI (test code = 0.5 mg/dL 0.1-1.5 1456288852) CALCIUM (test code = 8.5 mg/dL 8.6-10.6 L 7985412849) T PROTEIN (test code = 7.1 g/dL 6.3-8.2 1465417620) ALBUMIN (test code = 3.7 g/dL 3.5-5.0 1147536986) ALK PHOS (test code = 122 U/L 34-122 9459036209) ALTv (test code = 16 U/L 5-50 1742-6) AST(SGOT) (test code = 22 U/L 13-40 7967018412) eGFR (test code = mL/min/1.73m2 7646718918) DYAN (test code = DYAN) Association of [...] tests). Lab Interpretation Abnormal (test code = 46477-5) [facility] WITH [id number] 11:37:49 Test Item Value Reference Range Interpretation [...] RDW-SD (test code = 45.1 fL 38.5-51.6 29115-1) RDW-CV (test code = 16.5 % 12.1-15.4 H 788-0) PLT (test code = See_Comment H [Automated 777-3) message] The system which generated this result transmit yanely reference range : 150 - 328 10*3/ ?L. The reference range was not u sed to interpret th is result as normal/abnormal . MPV (test code = 9.5 fL 9.8-13.0 L 99083-1) NRBC/100 WBC (test See_Comment [Automat ed code = 6056294874) message] The system which generated this result transmit yanely reference range : 0.0 - 10.0 /100 WBCs. The reference range was not used to interpret this result as normal/abnormal . NRBC x10^3 (test code <0.01 See_Comment [Auto mated = 8576401102) message] The system which generated this result transmit yanely reference range : 10*3/?L. The reference range was not used to interpret this result as normal/abnormal . GRAN MAT (NEUT) % 74.4 % (test code = 770-8) IMM GRAN % (test code 1.00 % = 5843218562) LYMPH % (test code = 15.4 % 736-9) MONO % (test code = 7.9 % 5905-5) EOS % (test code = 0.9 % 713-8) BASO % (test code = 0.4 % 706-2) GRAN MAT x10^3(ANC) 11.71 10*3/uL 1.99-6.95 H (test code = 0447449450) IMM GRAN x10^3 (test 0.15 10*3/uL 0.00-0.06 H code = 0866487534) LYMPH x10^3 (test code 2.43 10*3/uL 1.09-3.23 = 731-0) MONO x10^3 (test code 1.25 10*3/uL 0.36-1.02 H = 742-7) EOS x10^3 (test code = 0.14 10*3/uL 0.06-0.53 711-2) BASO x10^3 (test code 0.06 10*3/uL 0.01-0.09 = 704-7) Lab Interpretation Abnormal (test code = 79509-8) [facility]ACT[facility] THRMPLAS [id number] 17:15:20 Test Item Value Reference Range Interpretation Comments APTT Patient (test See_Comment [Automat ed code = 3173-2) message] The system which generated this result transmitted reference range : 23 - 38 Seconds . The reference range was not used to interpr et this result as normal/abnormal . DYAN (test code = DYAN) The [facility] patient population mean normal value for aPTT is 30 seconds. Lab Interpretation Normal (test code = 32559-2) [facility] CenterPROTHROMBIN TIME / [id number] 17:13:18 Test Item Value Reference Range Interpretation [...] tions. Lab Interpretation (test Normal code = 06993-0) [facility] CenterTROP[facility]IN [id number] 16:59:37 Test Item Value Reference Interpretation Comments Range TROPONIN I (test 0.003 ng/mL See_Comment [Automated code = 3343079771) message] The system which generated this result [...] biotin. Lab Interpretation Normal (test code = 06647-2) [facility] CenterN-TERMINAL [id number] 16:56:14 Test Item Value Reference Range Interpretation Comments NT-proBNP (test code 37 pg/mL See_Comment [Autom ated = 3731086924) message] The system which generated this result transmitted reference range : <=125. The reference range was not used to interpret this result as normal/abnormal . DYAN (test code = DYAN) Biotin has been reported to cause a negative bias, interpret results relative to patient's use of biotin. Lab Interpretation Normal (test code = 73454-1) [facility] CenterETH[facility]OL2022-03-[facility] 16:51:35 Test Item Value Reference Range Interpretation Comments ALCOHOL (test code = <10 mg/dL 8384439594) DYAN (test code = DYAN) <10 Leokziyp77-303 Toxic>100 Depression of DATA REVIEWER>400 Fatalities Reported [facility]OL[facility] ([id number])2021-06-08 16:47:52 Test Item Value Reference Range Interpretation Comments NA (test code = 143 mmol/L 135-145 [id number]) K (test code = 4.6 mmol/L 3.5-5.0 5566172551) CL (test code = 103 mmol/L 98-108 5760178435) CO2 TOTAL (test code = 32 mmol/L 23-31 H 3526490930) AGAP (test code = 2-16 9946432937) BUN (test code = 10 mg/dL 7-23 3001753314) GLUCOSE (test code = 134 mg/dL 70-110 H 0974069132) CREATININE (test code = 0.62 mg/dL 0.60-1.25 4804303407) TOTAL BILI (test code = 0.5 mg/dL 0.1-1.7 9991579037) CALCIUM (test code = 8.4 mg/dL 8.6-10.6 L 2242881911) T PROTEIN (test code = 7.4 g/dL 6.3-8.2 6764792788) ALBUMIN (test code = 4.1 g/dL 3.5-5.0 0906165992) ALK PHOS (test code = 120 U/L 34-122 1954148823) ALTv (test code = 30 U/L 5-50 1742-6) AST(SGOT) (test code = 31 U/L 13-40 1058091734) eGFR (test code = mL/min/1.73m2 0207152313) DYAN (test code = DYAN) Association of [...] tests). Lab Interpretation Abnormal (test code = 63895-5) [facility] WITH [id number] 16:37:14 Test Item Value Reference Range Interpretation Comments WBC (test code = See_Comment H [Automated 6890-2) message] The sy stem which generated this result transmitted reference range : 4.20 - 10.70 10*3/?L. The reference range was not used to interpret this result as normal/abnormal . RBC (test code = See_Comment H [Automated 039-8) message] The sy stem which generated this [...] RDW-SD (test code = 49.5 fL 38.5-51.6 06178-8) RDW-CV (test code = 17.2 % 12.1-15.4 H 788-0) PLT (test code = See_Comment H [Automated 777-3) message] The sy stem which generated this result transmitted reference range : 150 - 328 10*3/ ?L. The reference r matthieu was not used to interpret this result as normal/abnormal . MPV (test code = 10.5 fL 9.8-13.0 78284-5) NRBC/100 WBC (test See_Comment [Automat ed code = 3536036734) message] The system which generated this result transmitted reference range : 0.0 - 10.0 /100 WBCs. The refer ence range was not u sed to interpret th is result as normal/abnormal . NRBC x10^3 (test code <0.01 See_Comment [Auto mated = 7670355928) message] The s ystem which generated this result transmitted reference range : 10*3/?L. The reference range was not used to interpret this result as normal/abnormal . GRAN MAT (NEUT) % 59.6 % (test code = 770-8) IMM GRAN % (test code 2.00 % = 2519712495) LYMPH % (test code = 24.1 % 736-9) MONO % (test code = 10.1 % 5905-5) EOS % (test code = 3.7 % 713-8) BASO % (test code = 0.5 % 706-2) GRAN MAT x10^3(ANC) 8.00 10*3/uL 1.99-6.95 H (test code = 0672178913) IMM GRAN x10^3 (test 0.27 10*3/uL 0.00-0.06 H code = 7958012274) LYMPH x10^3 (test code 3.23 10*3/uL 1.09-3.23 = 731-0) MONO x10^3 (test code 1.35 10*3/uL 0.36-1.02 H = 742-7) EOS x10^3 (test code = 0.50 10*3/uL 0.06-0.53 711-2) BASO x10^3 (test code 0.07 10*3/uL 0.01-0.09 = 704-7) Lab Interpretation Abnormal (test code = 91890-8) [facility] AND [id number] 20:30:00 Test Item Value Reference Range Interpretation Comments UA Color (test code = Yellow *NA*(09/16/19 UA Color) 3:30 PM) [facility] AND [id number] 20:30:00 Test Item Value Reference Range Interpretation Comments UA Turbidity (test code Slight Cloudy = UA Turbidity) (09/16/19 3:30 PM) [facility] AND [id number] 20:30:00 Test Item Value Reference Range Interpretation Comments UA Spec Grav (test code = UA Spec 1.025 1 Grav) [facility] AND [id number] 20:30:00 Test Item Value Reference Range Interpretation Comments UA pH (test code = UA pH) 5.5 1 5.0-8.0 [facility] AND [id number] 20:30:00 Test Item Value Reference Range Interpretation Comments UA Protein (test code = UA Negative mg/dL Protein) [facility] AND [id number] 20:30:00 Test Item Value Reference Range Interpretation Comments UA Glucose (test code = UA Negative mg/dL Glucose) [facility] AND [id number] 20:30:00 Test Item Value Reference Range Interpretation Comments UA Ketones (test code = UA Negative mg/dL Ketones) [facility] AND [id number] 20:30:00 Test Item Value Reference Range Interpretation Comments UA Bili (test code = Negative *NA*(09/16/19 UA Bili) 3:30 PM) [facility] AND [id number] 20:30:00 Test Item Value Reference Range Interpretation Comments UA Blood (test code = Negative (09/16/19 3:30 UA Blood) PM) [facility] AND [id number] 20:30:00 Test Item Value Reference Range Interpretation Comments UA Urobilinogen (test code = UA 0.2 0.1-1.0 [facility]robilinogen) [facility] [id number] 20:30:00 Test Item Value Reference Range Interpretation Comments UA Nitrite (test code Negative (09/16/19 3:30 = UA Nitrite) PM) [facility] [id number] 20:30:00 Test Item Value Reference Range Interpretation Comments UA Leuk Est (test Negative (09/16/19 3:30 code = UA Leuk Est) PM) [facility] [id number] 20:30:00 Test Item Value Reference Range Interpretation Comments UA Sq Epi (test code = UA Sq Epi) Rare /LPF [facility] [id number] 20:30:00 Test Item Value Reference Range Interpretation Comments UA WBC (test code = UA WBC) 0-2 /HPF [facility] [id number] 20:30:00 Test Item Value Reference Range Interpretation Comments UA RBC (test code = 0-2 /HPF See_Comment [Automa yanely message] The UA RBC) system which ge nerated this result tra nsmitted reference range : <=2. The reference range was not used to interpr et this result as brielle l/abnormal. [facility] [id number] 20:30:00 Test Item Value Reference Range Interpretation Comments UA Bacteria (test code = UA Bacteria) rare [facility] [id number] 20:30:00 Test Item Value Reference Range Interpretation Comments UA Mucus (test code = UA Mucus) Few /LPF [facility] [id number] 17:00:00 Test Item Value Reference Range Interpretation Comments Vitamin D, 25-OH, Total (test code = 19.2 30.0-100.0 Vitamin D, 25-OH, Total) [facility] ResourcesDndidhoBLTEUNZYDBCIU0905-58-75 17:00:00 Test Item Value Reference Range Interpretation Comments LH (test code = LH) 3.84 [facility] Resou[id number] 17:00:00 Test Item Value Reference Range Interpretation Comments FSH (test code = FSH) 7.3 [facility] GxrrmfiOKQWVPKFXE5559-98-20 17:00:00 Test Item Value Reference Range Interpretation Comments IGF I (test code = IGF I) 128 67-205 [facility] OR C ONLY - INFLUENZA A & B DIRECT ANTIGEN 2019-04-08 20:56:00 Test Item Value Reference Range Interpretation Comments Influenza A (test code = 14884-6) Negative Negative Influenza B (test code = 33261-8) Negative Negative Lab Interpretation (test code = Normal 75010-2) [facility] [id number] 20:43:43 Impression: Grossly unchanged enlargement of the ventricles. Left frontal approachventricular shunt catheter unchanged in position. 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 Comparison: 02/03/2019 Technique: Routine unenhanced brain [...] Left frontal approachventricular shunt catheter unchanged in position.[facility] CenterCHEM [id number] 11:31:00 Test Item Value Reference Range Interpretation Comments Magnesium Lvl (test code = Magnesium 2.2 1.8-2.4 Lvl) [facility] [id number] 11:31:00 Test Item Value Reference Range Interpretation Comments Phosphorus (test code = Phosphorus) 3.7 2.5-4.5 [facility]2019-12-04 11:31:00 Test Item Value Reference Range Interpretation Comments ALT (test code = ALT) 62 See_Comment [Auto mated message] The system which ge nerated this result transmit yanely reference range : <=65. The reference range was not used to interpr et this result as brielle l/abnormal. [facility]2019-12-04 11:31:00 Test Item Value Reference Range Interpretation Comments Albumin Lvl (test code = Albumin Lvl) 3.5 3.5-5.0 [facility]2019-12-04 11:31:00 Test Item Value Reference Range Interpretation Comments Alk Phos (test code = Alk Phos) 81 39-136 [facility]2019-12-04 11:31:00 Test Item Value Reference Range Interpretation Comments Glucose Lvl (test code = Glucose Lvl) 102 70-99 [facility]2019-12-04 11:31:00 Test Item Value Reference Range Interpretation Comments BUN (test code = BUN) 11 7-22 [facility]2019-12-04 11:31:00 Test Item Value Reference Range Interpretation Comments Creatinine Lvl (test code = Creatinine 0.65 0.50-1.40 Lvl) [facility]2019-12-04 11:31:00 Test Item Value Reference Range Interpretation Comments Sodium Lvl (test code = Sodium Lvl) 138 135-145 [facility]2019-12-04 11:31:00 Test Item Value Reference Range Interpretation Comments Potassium Lvl (test code = Potassium 4.0 3.5-5.1 Lvl) [facility]2019-12-04 11:31:00 Test Item Value Reference Range Interpretation Comments Chloride Lvl (test code = Chloride Lvl) 101 95-109 [facility]2019-12-04 11:31:00 Test Item Value Reference Range Interpretation Comments CO2 (test code = CO2) 30 24-32 [facility]2019-12-04 11:31:00 Test Item Value Reference Range Interpretation Comments Calcium Lvl (test code = Calcium Lvl) 9.6 8.5-10.5 [facility]2019-12-04 11:31:00 Test Item Value Reference Range Interpretation Comments Bili Total (test code = Bili Total) 0.5 0.2-1.3 [facility]2019-12-04 11:31:00 Test Item Value Reference Range Interpretation Comments Total Protein (test code = Total 8.3 6.4-8.4 Protein) [facility]2019-12-04 11:31:00 Test Item Value Reference Range Interpretation Comments AST (test code = AST) 54 See_Comment [Auto mated message] The system which ge nerated this result transmit yanely reference range : <=37. The reference range was not used to interpr et this result as brielle l/abnormal. [facility]2019-12-04 11:31:00 Test Item Value Reference Range Interpretation Comments eGFR (test code = eGFR) 117 [facility]2019-12-04 11:31:00 Test Item Value Reference Range Interpretation Comments AGAP (test code = AGAP) 11.0 10.0-20.0 [facility]2019-12-04 11:31:00 Test Item Value Reference Range Interpretation Comments B/C Ratio (test code = B/C Ratio) 17 1 6-25 [facility]2019-12-04 11:31:00 Test Item Value Reference Range Interpretation Comments Globulin (test code = Globulin) 4.8 2.7-4.2 [facility]2019-12-04 11:31:00 Test Item Value Reference Range Interpretation Comments A/G Ratio (test code = A/G Ratio) 0.7 1 0.7-1.6 [facility] Camp[id number] 11:31:00 Test Item Value Reference Range Interpretation Comments Plt Morph (test code = Normal (02/19/19 5:31 Plt Morph) AM) [facility] C[id number] 11:31:00 Test Item Value Reference Range Interpretation Comments Segs (test code = Segs) 60.5 45.0-75.0 [facility] CampusIqkjdmfVPGMMKWPNO1931-11-50 11:31:00 Test Item Value Reference Range Interpretation Comments Lymphocytes (test code = Lymphocytes) 28.8 20.0-40.0 [place] 359829-12-04 11:31:00 Test Item Value Reference Range Interpretation Comments Monocytes (test code = Monocytes) 8.5 2.0-12.0 [facility] C[id number] 11:31:00 Test Item Value Reference Range Interpretation Comments Eosinophils (test code = 1.5 See_Comment [A utomated message] The Eosinophils) system which ge nerated this result tra nsmitted reference range : <=4.0. The reference r matthieu was not used to int erpret this result as normal/abnormal . [facility] CampusUesehybACGZAYYWKI4310-53-22 11:31:00 Test Item Value Reference Range Interpretation Comments Basophils (test code = 0.7 See_Comment [Aut omated message] The Basophils) system which ge nerated this result tra nsmitted reference range : <=1.0. The reference r matthieu was not used to int erpret this result as normal/abnormal . [facility] CampusMrqcovnPZZHKWHGLK5029-15-13 11:31:00 Test Item Value Reference Range Interpretation Comments Neutrophils # (test code = Neutrophils 6.2 1.5-8.1 #) [facility] CampusOrjwzrkHSBXFJBCRO9070-40-48 11:31:00 Test Item Value Reference Range Interpretation Comments Lymphocytes # (test code = Lymphocytes 3.0 1.0-5.5 #) [facility] CampusUjagyhdNRBDVHLQOL3839-87-84 11:31:00 Test Item Value Reference Range Interpretation Comments Monocytes # (test code 0.9 See_Comment [Aut omated message] The = Monocytes #) system which generated this result tra nsmitted reference range : <=0.8. The reference r matthieu was not used to int erpret this result as normal/abnormal . [facility] CampusDkalmnzFLAOJEKYXQ9699-17-02 11:31:00 Test Item Value Reference Range Interpretation Comments Eosinophils # (test code 0.2 See_Comment [A utomated message] The = Eosinophils #) system whic h generated this result tra nsmitted reference range : <=0.5. The reference r matthieu was not used to int erpret this result as normal/abnormal . [facility] CampusPddemoeYKOFPVGLZI6426-21-07 11:31:00 Test Item Value Reference Range Interpretation Comments Basophils # (test code 0.1 See_Comment [Aut omated message] The = Basophils #) system which generated this result tra nsmitted reference range : <=0.2. The reference r matthieu was not used to int erpret this result as normal/abnormal . [facility] CampusVhrhlglTCCEKQOXRI1618-69-08 11:31:00 Test Item Value Reference Range Interpretation Comments Microcyte (test code = 1+ *ABN*(02/19/19 Microcyte) 5:31 AM) [facility] CampusCcgcylnLZNXOVGNTW9827-11-19 11:31:00 Test Item Value Reference Range Interpretation Comments WBC (test code = WBC) 10.7 3.7-10.4 [facility] CampusLvuptrmMIXQOPHSGV0196-03-57 11:31:00 Test Item Value Reference Range Interpretation Comments RBC (test code = RBC) 5.16 4.70-6.10 [facility] CampusZuchhjfIPLPMYTYSV3400-91-77 11:31:00 Test Item Value Reference Range Interpretation Comments Hgb (test code = Hgb) 12.9 14.0-18.0 [facility] CampusLejwscfHVSTYLRNUG5299-78-72 11:31:00 Test Item Value Reference Range Interpretation Comments Hct (test code = Hct) 39.3 42.0-54.0 [facility] CampusDvvckdqASJGMXJPTH0422-74-36 11:31:00 Test Item Value Reference Range Interpretation Comments MCV (test code = MCV) 76.2 80.0-94.0 [facility] AlmaYdzpjsiAKIDZMIMKN8413-77-83 11:31:00 Test Item Value Reference Range Interpretation Comments MCH (test code = MCH) 25.0 pg 27.0-31.0 [facility] CampusTmraxblDZPSRYVZGS5394-20-28 11:31:00 Test Item Value Reference Range Interpretation Comments MCHC (test code = MCHC) 32.8 32.0-36.0 [facility] CampusQfugseaWNCIYWJJKU9550-65-26 11:31:00 Test Item Value Reference Range Interpretation Comments RDW (test code = RDW) 18.1 11.5-14.5 [facility] CampusArorgnlTYHPWMRSJI7815-84-62 11:31:00 Test Item Value Reference Range Interpretation Comments Platelet (test code = Platelet) 441 133-450 [facility] AlmaQmoushbOKZMLWQTQQ7744-85-33 11:31:00 Test Item Value Reference Range Interpretation Comments MPV (test code = MPV) 8.7 7.4-10.4 [facility] AND [id number] 11:31:00 Test Item Value Reference Range Interpretation Comments UA Color (test code = Yellow *NA*(02/19/19 UA Color) 5:31 AM) [facility] AND [id number] 11:31:00 Test Item Value Reference Range Interpretation Comments UA Turbidity (test code = Clear (02/19/19 5:31 UA Turbidity) AM) [facility] AND [id number] 11:31:00 Test Item Value Reference Range Interpretation Comments UA Spec Grav (test code = UA Spec 1.010 1 Grav) [facility] AND [id number] 11:31:00 Test Item Value Reference Range Interpretation Comments UA pH (test code = UA pH) 6.0 1 5.0-8.0 [facility] AND [id number] 11:31:00 Test Item Value Reference Range Interpretation Comments UA Protein (test code = UA Negative mg/dL Protein) [facility] AND [id number] 11:31:00 Test Item Value Reference Range Interpretation Comments UA Glucose (test code = UA Negative mg/dL Glucose) [facility] AND [id number] 11:31:00 Test Item Value Reference Range Interpretation Comments UA Ketones (test code = UA Negative mg/dL Ketones) [facility] AND [id number] 11:31:00 Test Item Value Reference Range Interpretation Comments UA Bili (test code = Negative *NA*(02/19/19 UA Bili) 5:31 AM) [facility] AND [id number] 11:31:00 Test Item Value Reference Range Interpretation Comments UA Blood (test code = Negative (02/19/19 5:31 UA Blood) AM) [facility] AND [id number] 11:31:00 Test Item Value Reference Range Interpretation Comments UA Urobilinogen (test code = UA 0.2 0.1-1.0 Urobilinogen) [facility] AND [id number] 11:31:00 Test Item Value Reference Range Interpretation Comments UA Nitrite (test code Negative (02/19/19 5:31 = UA Nitrite) AM) [facility] AND [id number] 11:31:00 Test Item Value Reference Range Interpretation Comments UA Leuk Est (test Negative (02/19/19 5:31 code = UA Leuk Est) AM) [facility] AND [id number] 11:31:00 Test Item Value Reference Range Interpretation Comments UA Sq Epi (test code = UA Sq Epi) Rare /LPF [facility] AND [id number] 11:31:00 Test Item Value Reference Range Interpretation Comments UA WBC (test code = UA WBC) 0-2 /HPF [facility] AND [id number] 11:31:00 Test Item Value Reference Range Interpretation Comments UA RBC (test code = 0-2 /HPF See_Comment [Automa yanely message] The UA RBC) system which ge nerated this result tra nsmitted reference range : <=2. The reference range was not used to interpr et this result as brielle l/abnormal. [facility] AND [id number] 11:31:00 Test Item Value Reference Range Interpretation Comments UA Bacteria (test code = UA Bacteria) rare [facility] CampusFfsfeduAELIPOGUPX2561-84-58 22:40:00 Test Item Value Reference Range Interpretation Comments WBC (test code = WBC) 16.7 3.7-10.4 [facility] CampusRkemtzpMNINKKDNEG0659-46-53 22:40:00 Test Item Value Reference Range Interpretation Comments RBC (test code = RBC) 5.34 4.70-6.10 [facility] CampusHwywwosHWUKFCGQAP7955-42-09 22:40:00 Test Item Value Reference Range Interpretation Comments Hgb (test code = Hgb) 13.4 14.0-18.0 [facility] CampusWebrlgtUPFLYYAMGP1204-55-26 22:40:00 Test Item Value Reference Range Interpretation Comments Hct (test code = Hct) 40.8 42.0-54.0 [facility] CampusSfkxmgwVFFHRICEPX3663-23-30 22:40:00 Test Item Value Reference Range Interpretation Comments MCV (test code = MCV) 76.4 80.0-94.0 [facility] CampusFjgogpgPTMBLHLVDS1570-68-51 22:40:00 Test Item Value Reference Range Interpretation Comments MCH (test code = MCH) 25.0 pg 27.0-31.0 [facility] CampusVppwzliYYFLPFVTFB4425-18-14 22:40:00 Test Item Value Reference Range Interpretation Comments MCHC (test code = MCHC) 32.7 32.0-36.0 [facility] CampusGksjfssFATRJJTIIZ9086-16-58 22:40:00 Test Item Value Reference Range Interpretation Comments RDW (test code = RDW) 17.9 11.5-14.5 [facility] CampusAsmtrkeUMUVLMSSGS6720-34-34 22:40:00 Test Item Value Reference Range Interpretation Comments Platelet (test code = Platelet) 465 133-450 [facility] CampusUbpqukqRQVEEOFZXM0573-38-92 22:40:00 Test Item Value Reference Range Interpretation Comments MPV (test code = MPV) 8.3 7.4-10.4 [facility] CampusPjsgzthHUDWLGZMRQ3568-58-46 22:40:00 Test Item Value Reference Range Interpretation Comments Segs (test code = Segs) 71.8 45.0-75.0 [facility] CampusOvseshkBZAHTOEHVC1710-23-18 22:40:00 Test Item Value Reference Range Interpretation Comments Lymphocytes (test code = Lymphocytes) 20.6 20.0-40.0 [facility] CampusEthjgdhDUQNTKRWDU7498-39-03 22:40:00 Test Item Value Reference Range Interpretation Comments Monocytes (test code = Monocytes) 6.1 2.0-12.0 [facility] CampusNaaxavrTYTRCUHKND4833-85-14 22:40:00 Test Item Value Reference Range Interpretation Comments Eosinophils (test code = 1.0 See_Comment [A utomated message] The Eosinophils) system which ge nerated this result tra nsmitted reference range : <=4.0. The reference r matthieu was not used to int erpret this result as normal/abnormal . [facility] CampusFcfaqimRAYUFFLNRZ2603-31-21 22:40:00 Test Item Value Reference Range Interpretation Comments Basophils (test code = 0.5 See_Comment [Aut omated message] The Basophils) system which ge nerated this result tra nsmitted reference range : <=1.0. The reference r matthieu was not used to int erpret this result as normal/abnormal . [facility] CampusAeikkjpEACCDNXITB6410-13-41 22:40:00 Test Item Value Reference Range Interpretation Comments Neutrophils # (test code = Neutrophils 12.0 1.5-8.1 #) [facility] CampusDxlyifeUCPQSJRPMQ7914-36-68 22:40:00 Test Item Value Reference Range Interpretation Comments Lymphocytes # (test code = Lymphocytes 3.4 1.0-5.5 #) [facility] CampusAooulisJFSIZSYEXB7457-73-99 22:40:00 Test Item Value Reference Range Interpretation Comments Monocytes # (test code 1.0 See_Comment [Aut omated message] The = Monocytes #) system which generated this result tra nsmitted reference range : <=0.8. The reference r matthieu was not used to int erpret this result as normal/abnormal . [facility] CampusCmnyptnXBGQESNEBL9229-12-10 22:40:00 Test Item Value Reference Range Interpretation Comments Eosinophils # (test code 0.2 See_Comment [A utomated message] The = Eosinophils #) system whic h generated this result tra nsmitted reference range : <=0.5. The reference r matthieu was not used to int erpret this result as normal/abnormal . [facility] CampusZcjxanmEZHMUHSHQJ7077-35-94 22:40:00 Test Item Value Reference Range Interpretation Comments Basophils # (test code 0.1 See_Comment [Aut omated message] The = Basophils #) system which generated this result tra nsmitted reference range : <=0.2. The reference r matthieu was not used to int erpret this result as normal/abnormal . [facility] CampusNylpxeaDWPOXOFYNE1145-42-53 22:40:00 Test Item Value Reference Range Interpretation Comments Microcyte (test code = 1+ *ABN*(02/17/19 Microcyte) 4:40 PM) [facility] [facility]DvuqdstZNFGPKYQXV7714-62-39 10:46:00 Test Item Value Reference Range Interpretation Comments Segs (test code = Segs) 63.9 45.0-75.0 [facility] CampusKyvnegmATHUCSCXNY6163-60-05 10:46:00 Test Item Value Reference Range Interpretation Comments Lymphocytes (test code = Lymphocytes) 26.9 20.0-40.0 [facility] CampusDwwmstvAZDSYABSGW4714-14-04 10:46:00 Test Item Value Reference Range Interpretation Comments Monocytes (test code = Monocytes) 6.9 2.0-12.0 [facility] CampusBetxbunWWZVLFNXSG0762-88-38 10:46:00 Test Item Value Reference Range Interpretation Comments Eosinophils (test code = 1.9 See_Comment [A utomated message] The Eosinophils) system which ge nerated this result tra nsmitted reference range : <=4.0. The reference r matthieu was not used to int erpret this result as normal/abnormal . [facility] CampusQqevtwwKTYUCZPTGU4897-99-82 10:46:00 Test Item Value Reference Range Interpretation Comments Basophils (test code = 0.4 See_Comment [Aut omated message] The Basophils) system which ge nerated this result tra nsmitted reference range : <=1.0. The reference r matthieu was not used to int erpret this result as normal/abnormal . [facility] CampusTkbiaywYUMKTQOHPC9788-17-61 10:46:00 Test Item Value Reference Range Interpretation Comments Neutrophils # (test code = Neutrophils 7.5 1.5-8.1 #) [facility] CampusSluhmtzFSHEHTUCDX5151-26-99 10:46:00 Test Item Value Reference Range Interpretation Comments Lymphocytes # (test code = Lymphocytes 3.1 1.0-5.5 #) [facility] CampusWkafkmmAMJZDERLRC2874-22-61 10:46:00 Test Item Value Reference Range Interpretation Comments Monocytes # (test code 0.8 See_Comment [Aut omated message] The = Monocytes #) system which generated this result tra nsmitted reference range : <=0.8. The reference r matthieu was not used to int erpret this result as normal/abnormal . [facility] CampusWogjspjBZIPAXQXDV5652-92-50 10:46:00 Test Item Value Reference Range Interpretation Comments Eosinophils # (test code 0.2 See_Comment [A utomated message] The = Eosinophils #) system whic h generated this result tra nsmitted reference range : <=0.5. The reference r matthieu was not used to int erpret this result as normal/abnormal . [facility] CampusZobipevVUJJUAPJOY9637-38-50 10:46:00 Test Item Value Reference Range Interpretation Comments Microcyte (test code = 1+ *ABN*(02/15/19 Microcyte) 4:46 AM) [facility] CampusFkrmxpcIWSNUDLOXF8736-89-33 10:46:00 Test Item Value Reference Range Interpretation Comments WBC (test code = WBC) 11.7 3.7-10.4 [facility] CampusVrdpzxzPKICATNJEP4603-12-74 10:46:00 Test Item Value Reference Range Interpretation Comments RBC (test code = RBC) 5.13 4.70-6.10 [facility] CampusVdrvilvMTFXJHNBCP4047-53-38 10:46:00 Test Item Value Reference Range Interpretation Comments Hgb (test code = Hgb) 12.4 14.0-18.0 [facility] CampusIiueiqnABXMTJEZAQ7812-93-51 10:46:00 Test Item Value Reference Range Interpretation Comments Hct (test code = Hct) 39.5 42.0-54.0 [facility] CampusNjybqoyEVQLLONMBI8801-86-63 10:46:00 Test Item Value Reference Range Interpretation Comments MCV (test code = MCV) 77.1 80.0-94.0 [facility] CampusTgkzbgeMLTKXNORPE4113-70-61 10:46:00 Test Item Value Reference Range Interpretation Comments MCH (test code = MCH) 24.1 pg 27.0-31.0 [facility] CampusKhlkdknNAGOHQTKWC2442-12-96 10:46:00 Test Item Value Reference Range Interpretation Comments MCHC (test code = MCHC) 31.2 32.0-36.0 [facility] CampusDzgihiaGFCOJBJCVL7467-16-33 10:46:00 Test Item Value Reference Range Interpretation Comments RDW (test code = RDW) 17.2 11.5-14.5 [facility] CampusBvfuzghDUHEXSJORE8449-95-14 10:46:00 Test Item Value Reference Range Interpretation Comments Platelet (test code = Platelet) 406 133-450 [facility] CampusDhhwfdqGMDPGDBTBT3153-60-61 10:46:00 Test Item Value Reference Range Interpretation Comments MPV (test code = MPV) 8.6 7.4-10.4 [facility]2019-11-27 10:14:00 Test Item Value Reference Range Interpretation Comments Iron (test code = Iron) 48 45-160 [facility]2019-11-27 10:14:00 Test Item Value Reference Range Interpretation Comments TIBC (test code = TIBC) 276 228-428 [facility]2019-11-27 10:14:00 Test Item Value Reference Range Interpretation Comments UIBC (test code = UIBC) 228 110-370 [facility]2019-11-27 10:14:00 Test Item Value Reference Range Interpretation Comments % Satur Fe (test code = % Satur Fe) 17 12-57 [facility]2019-11-27 10:14:00 Test Item Value Reference Range Interpretation Comments Ferritin Lvl (test code = Ferritin Lvl) 173 22-275 [facility]2019-11-27 10:14:00 Test Item Value Reference Range Interpretation Comments Phosphorus (test code = Phosphorus) 3.4 2.5-4.5 [facility]2019-11-27 10:14:00 Test Item Value Reference Range Interpretation Comments Magnesium Lvl (test code = Magnesium 2.2 1.8-2.4 Lvl) [facility]2019-11-25 10:27:00 Test Item Value Reference Range Interpretation Comments ALT (test code = ALT) 49 See_Comment [Auto mated message] The system which ge nerated this result transmit yanely reference range : <=65. The reference range was not used to interpr et this result as brielle l/abnormal. [facility]2019-11-25 10:27:00 Test Item Value Reference Range Interpretation Comments Albumin Lvl (test code = Albumin Lvl) 2.8 3.5-5.0 [facility]2019-11-25 10:27:00 Test Item Value Reference Range Interpretation Comments Alk Phos (test code = Alk Phos) 76 39-136 [facility]2019-11-25 10:27:00 Test Item Value Reference Range Interpretation Comments Glucose Lvl (test code = Glucose Lvl) 108 70-99 [facility]2019-11-25 10:27:00 Test Item Value Reference Range Interpretation Comments BUN (test code = BUN) 8 7-22 [facility]2019-11-25 10:27:00 Test Item Value Reference Range Interpretation Comments Creatinine Lvl (test code = Creatinine 0.60 0.50-1.40 Lvl) [facility]2019-11-25 10:27:00 Test Item Value Reference Range Interpretation Comments Sodium Lvl (test code = Sodium Lvl) 141 135-145 [facility]2019-11-25 10:27:00 Test Item Value Reference Range Interpretation Comments Potassium Lvl (test code = Potassium 3.7 3.5-5.1 Lvl) [facility]2019-11-25 10:27:00 Test Item Value Reference Range Interpretation Comments Chloride Lvl (test code = Chloride Lvl) 106 95-109 [facility]2019-11-25 10:27:00 Test Item Value Reference Range Interpretation Comments CO2 (test code = CO2) 27 24-32 [facility]2019-11-25 10:27:00 Test Item Value Reference Range Interpretation Comments Calcium Lvl (test code = Calcium Lvl) 8.4 8.5-10.5 [facility]2019-11-25 10:27:00 Test Item Value Reference Range Interpretation Comments Bili Total (test code = Bili Total) 0.3 0.2-1.3 [facility]2019-11-25 10:27:00 Test Item Value Reference Range Interpretation Comments Total Protein (test code = Total 7.4 6.4-8.4 Protein) [facility]2019-11-25 10:27:00 Test Item Value Reference Range Interpretation Comments AST (test code = AST) 45 See_Comment [Auto mated message] The system which ge nerated this result transmit yanely reference range : <=37. The reference range was not used to interpr et this result as brielle l/abnormal. [facility]2019-11-25 10:27:00 Test Item Value Reference Range Interpretation Comments eGFR (test code = eGFR) 121 [facility]2019-11-25 10:27:00 Test Item Value Reference Range Interpretation Comments AGAP (test code = AGAP) 11.7 10.0-20.0 [facility]2019-11-25 10:27:00 Test Item Value Reference Range Interpretation Comments B/C Ratio (test code = B/C Ratio) 13 1 6-25 [id number] 10:27:00 Test Item Value Reference Range Interpretation Comments Globulin (test code = Globulin) 4.6 2.7-4.2 [facility]2019-11-25 10:27:00 Test Item Value Reference Range Interpretation Comments A/G Ratio (test code = A/G Ratio) 0.6 1 0.7-1.6 [facility] CampusMcwtoczURFQJQJPLI9801-32-62 10:27:00 Test Item Value Reference Range Interpretation Comments Bands (test code = 1.0 See_Comment [Automat ed message] The Bands) system which ge nerated this result transmit yanely reference range : <=11.0. The reference r matthieu was not used to interpr et this result as brielle l/abnormal. [facility] CampusNyuhdajLLSAGMCCPH6199-76-85 10:27:00 Test Item Value Reference Range Interpretation Comments Metamyelocytes (test code 3.0 See_Comment [ Automated message] = Metamyelocytes) The system which generated this result transmitted ref erence range: <=1.0. T he reference range was not used to int erpret this result as normal/abnormal . [facility] CampusEzicigeCVIRDCVUMW4486-63-43 10:27:00 Test Item Value Reference Range Interpretation Comments Myelocytes (test code = Myelocytes) 4.0 [facility]DriadplVLHNKOTGWK0465-43-90 10:27:00 Test Item Value Reference Range Interpretation Comments Promyelocytes (test code = 1.0 Promyelocytes) [facility] CampusFyuuiirUGURRMPWRQ3858-77-94 10:27:00 Test Item Value Reference Range Interpretation Comments Atypical Lymphs (test code = Atypical 0.0 Lymphs) [facility] CampusUlnpzkvELVESUAPYQ1985-55-63 10:27:00 Test Item Value Reference Range Interpretation Comments Plt Morph (test code = Normal (02/10/19 4:27 Plt Morph) AM) [facility]kpxeokOHYCMIIRPZ6629-16-29 19:50:00 Test Item Value Reference Range Interpretation Comments Vanco Lvl (test code = Vanco Lvl) 10.0 [facility]2019-11-23 19:16:00 Test Item Value Reference Range Interpretation Comments Phosphorus (test code = Phosphorus) 1.8 2.5-4.5 [facility] [id number] 19:16:00 Test Item Value Reference Range Interpretation Comments Magnesium Lvl (test code = Magnesium 2.1 1.8-2.4 Lvl) [facility]BWEVLGRDTMLQ9730[facility] 19:16:00 Test Item Value Reference Range Interpretation Comments AGAP (test code = AGAP) 10.9 10.0-20.0 [facility]FzzfzkoZMXFCKGPXAVY0935-42-74 19:16:00 Test Item Value Reference Range Interpretation Comments B/C Ratio (test code = B/C Ratio) 11 1 6-25 [facility]IrilwlwKGTGOONDJKVC0817-10-64 19:16:00 Test Item Value Reference Range Interpretation Comments Globulin (test code = Globulin) 4.6 2.7-4.2 [facility] SystemVwtmplsYBNMFEVOGIYD2425-15-89 19:16:00 Test Item Value Reference Range Interpretation Comments A/G Ratio (test code = A/G Ratio) 0.6 1 0.7-1.6 [facility] SystemTuckmorPSEUMTZXEZHV1574-58-54 19:16:00 Test Item Value Reference Range Interpretation Comments Glucose Lvl (test code = Glucose Lvl) 194 70-99 [facility] SystemMfhlxonEALKIXQLIOUM0594-15-33 19:16:00 Test Item Value Reference Range Interpretation Comments BUN (test code = BUN) 7 7-22 [facility] SystemAjdbejtFXQKJPXFSZVC2917-96-95 19:16:00 Test Item Value Reference Range Interpretation Comments Creatinine Lvl (test code = Creatinine 0.62 0.50-1.40 Lvl) [facility] SystemUdwnqdiEMJCMJMHEZUY9976-07-88 19:16:00 Test Item Value Reference Range Interpretation Comments Sodium Lvl (test code = Sodium Lvl) 138 135-145 [facility] SystemZoabaswYQVWPWEVZUOJ0154-02-64 19:16:00 Test Item Value Reference Range Interpretation Comments Potassium Lvl (test code = Potassium 3.9 3.5-5.1 Lvl) [facility] SystemLjclvatGKEEEHDIJCUM3579-45-42 19:16:00 Test Item Value Reference Range Interpretation Comments Chloride Lvl (test code = Chloride Lvl) 103 95-109 [facility] SystemFebshhkNRBYBTVGSNYF4103-95-92 19:16:00 Test Item Value Reference Range Interpretation Comments CO2 (test code = CO2) 28 24-32 [facility] SystemWuybskmAIEIYYTDGYTD9254-73-28 19:16:00 Test Item Value Reference Range Interpretation Comments Calcium Lvl (test code = Calcium Lvl) 8.6 8.5-10.5 [facility] SystemAxckanhWOAUXOOEOYHR8485-41-43 19:16:00 Test Item Value Reference Range Interpretation Comments Total Protein (test code = Total 7.5 6.4-8.4 Protein) [facility] SystemBycioceAFEIOQDCLISM6846-09-49 19:16:00 Test Item Value Reference Range Interpretation Comments Albumin Lvl (test code = Albumin Lvl) 2.9 3.5-5.0 [facility] SystemIfyihksKCFODFJLQLTP3040-66-82 19:16:00 Test Item Value Reference Range Interpretation Comments ALT (test code = ALT) 43 See_Comment [Auto mated message] The system which ge nerated this result transmit yanely reference range : <=65. The reference range was not used to interpr et this result as brielle l/abnormal. [facility] SystemTkocykiUUKIJWQZIZHT5952-28-29 19:16:00 Test Item Value Reference Range Interpretation Comments AST (test code = AST) 37 See_Comment [Auto mated message] The system which ge nerated this result transmit yanely reference range : <=37. The reference range was not used to interpr et this result as brielle l/abnormal. [facility] SystemXzxpsgfQRXCIMDUDJOH8952-07-65 19:16:00 Test Item Value Reference Range Interpretation Comments Alk Phos (test code = Alk Phos) 83 39-136 [facility] SystemRsfptdfRFMAIVPWUBOD0220-36-45 19:16:00 Test Item Value Reference Range Interpretation Comments Bili Total (test code = Bili Total) 0.4 0.2-1.3 [facility] SystemEcofhinBDMKMYPRQMCH3891-95-09 19:16:00 Test Item Value Reference Range Interpretation Comments eGFR (test code = eGFR) 119 [facility] CampusGrlevyoPZPQNEYHJO8898-73-09 19:16:00 Test Item Value Reference Range Interpretation Comments Bands (test code = 0.0 See_Comment [Automat ed message] The Bands) system which ge nerated this result transmit yanely reference range : <=11.0. The reference r matthieu was not used to interpr et this result as brielle l/abnormal. [facility] CampusWgahbifZGKDYAAXTR8093-46-35 19:16:00 Test Item Value Reference Range Interpretation Comments Metamyelocytes (test code 2.0 See_Comment [ Automated message] = Metamyelocytes) The system which generated this result transmitted ref erence range: <=1.0. T he reference range was not used to int erpret this result as normal/abnormal . [facility] CampusFkvqpjzJUYSUBDTJN8458-97-29 19:16:00 Test Item Value Reference Range Interpretation Comments Myelocytes (test code = Myelocytes) 2.0 [facility] CampusPkeqyijIHOVBCODDI5192-77-19 19:16:00 Test Item Value Reference Range Interpretation Comments Atypical Lymphs (test code = Atypical 0.0 Lymphs) [facility] CampusIarwugcEQHICWCBTW1183-63-92 19:16:00 Test Item Value Reference Range Interpretation Comments NRBC (test code = NRBC) 1 [facility] CampusRkmnxgoYPTXTPVNWD1015-74-03 19:16:00 Test Item Value Reference Range Interpretation Comments Plt Morph (test code = Normal (02/08/19 1:16 Plt Morph) PM) [facility] CampusZbmftykQQYAGPULSS8914-12-62 19:16:00 Test Item Value Reference Range Interpretation Comments Anisocyte (test code = 1+ *ABN*(02/08/19 Anisocyte) 1:16 PM) [facility] CampusDzzcojcYCDUWPZPAZ0671-78-85 19:16:00 Test Item Value Reference Range Interpretation Comments Hypochrom (test code = 1+ (02/08/19 1:16 Hypochrom) PM) [facility] ResourcesUrfvorqYMFKMVHFMN2402-56-46 19:16:00 Test Item Value Reference Range Interpretation Comments Prealbumin (test code = Prealbumin) 9.1 18.0-45.0 [facility] ResourcesDvorsrpAIAUMD0274-25-83 19:16:00 Test Item Value Reference Range Interpretation Comments Trig (test code = Trig) 146 [facility] ResourcesQreftbnXVWVAP8935-62-16 19:16:00 Test Item Value Reference Range Interpretation Comments Chol (test code = Chol) 158 [facility] ResourcesPtzaqpjKCLPFB4185-74-43 19:16:00 Test Item Value Reference Range Interpretation Comments HDL (test code = HDL) 26 [facility] ResourcesFrtvtqcPJJTOY6967-19-80 19:16:00 Test Item Value Reference Range Interpretation Comments LDL (Calculated) (test code = LDL 103 (Calculated)) [facility] ResourcesVgvanuxYALCOA9626-19-85 19:16:00 Test Item Value Reference Range Interpretation Comments VLDL (test code = VLDL) 29 1 [facility] ResourcesKsnrdbsQNLQXT6361-68-64 19:16:00 Test Item Value Reference Range Interpretation Comments CHD Risk (test code = CHD Risk) 6.08 1 4.00-7.30 [facility] IHVEFGOEE6233-36-04 19:16:00 Test Item Value Reference Range Interpretation Comments Hgb A1C (test code = Hgb A1C) 7.3 [facility] [id number] 16:57:00 Test Item Value Reference Range Interpretation Comments UA Color (test code = Yellow *NA*(02/08/19 UA Color) 10:57 AM) [facility] [id number] 16:57:00 Test Item Value Reference Range Interpretation Comments UA Turbidity (test code Slight *ABN*(02/08/19 = UA Turbidity) 10:57 AM) [facility] [id number] 16:57:00 Test Item Value Reference Range Interpretation Comments UA Spec Grav (test code = UA Spec 1.021 1 Grav) [facility]ann[facility] AND [id number] 16:57:00 Test Item Value Reference Range Interpretation Comments UA pH (test code = UA pH) 6.0 1 5.0-8.0 [facility] [id number] 16:57:00 Test Item Value Reference Range Interpretation Comments UA Protein (test code = UA Negative mg/dL Protein) [facility] [id number] 16:57:00 Test Item Value Reference Range Interpretation Comments UA Glucose (test code = UA Negative mg/dL Glucose) [facility] [id number] 16:57:00 Test Item Value Reference Range Interpretation Comments UA Ketones (test code = UA Negative mg/dL Ketones) [facility] [id number] 16:57:00 Test Item Value Reference Range Interpretation Comments UA Bili (test code = Negative *NA*(02/08/19 UA Bili) 10:57 AM) [facility] [id number] 16:57:00 Test Item Value Reference Range Interpretation Comments UA Blood (test code = Negative (02/08/19 10:57 UA Blood) AM) [facility] [id number] 16:57:00 Test Item Value Reference Range Interpretation Comments UA Urobilinogen (test code = UA no gt 0.1-1.0 Urobilinogen) [facility] [id number] 16:57:00 Test Item Value Reference Range Interpretation Comments UA Nitrite (test code Negative (02/08/19 = UA Nitrite) 10:57 AM) [facility] [id number] 16:57:00 Test Item Value Reference Range Interpretation Comments UA Leuk Est (test code Trace *ABN*(02/08/19 = UA Leuk Est) 10:57 AM) [facility] [id number] 16:57:00 Test Item Value Reference Range Interpretation Comments UA Sq Epi (test code = UA Sq Occasional /LPF Epi) [facility] [id number] 16:57:00 Test Item Value Reference Range Interpretation Comments UA WBC (test code = 2 See_Comment [Automa yanely message] The UA WBC) system which ge nerated this result transmit yanely reference range : <=5. The reference range was not used to interpr et this result as brielle l/abnormal. [facility] [id number] 16:57:00 Test Item Value Reference Range Interpretation Comments UA Mucus (test code = UA Mucus) Few /LPF [facility] ResourcesannCARDIAC [id number] 10:25:00 Test Item Value Reference Range Interpretation Comments Total CK (test code = Total CK) 396 12-191 [facility] ResourcesCircle 1 Network [id number] 10:25:00 Test Item Value Reference Range Interpretation Comments CK MB (test code = CK MB) 1.7 0.5-3.6 [facility] For[facility]™ [facility] [id number] 10:25:00 Test Item Value Reference Range Interpretation Comments CK MB Index (test 0.4 1 See_Comment [Automate d message] The code = CK MB Index) system w [facility] generated this result transmit yanely reference range : <=2.5. The reference range was not used to interpr et this result as brielle l/abnormal. [facility] [employer] [id number] 10:25:00 Test Item Value Reference Range Interpretation Comments Glucose Lvl (test code = Glucose Lvl) 125 70-99 [facility] [employer] [id number] 10:25:00 Test Item Value Reference Range Interpretation Comments BUN (test code = BUN) 7 7-22 [facility] ResourcesUDeserve Technologies [id number] 10:25:00 Test Item Value Reference Range Interpretation Comments Creatinine Lvl (test code = Creatinine 0.60 0.50-1.40 Lvl) [facility] ResourcesUDeserve Technologies [id number] 10:25:00 Test Item Value Reference Range Interpretation Comments Sodium Lvl (test code = Sodium Lvl) 142 135-145 [facility] ResourcesUDeserve Technologies [id number] 10:25:00 Test Item Value Reference Range Interpretation Comments Potassium Lvl (test code = Potassium 3.7 3.5-5.1 Lvl) [facility] ResourcesUDeserve Technologies [id number] 10:25:00 Test Item Value Reference Range Interpretation Comments Chloride Lvl (test code = Chloride Lvl) 106 95-109 [facility] [employer] [id number] 10:25:00 Test Item Value Reference Range Interpretation Comments CO2 (test code = CO2) 31 24-32 [facility] ResourcesUDeserve Technologies [id number] 10:25:00 Test Item Value Reference Range Interpretation Comments Calcium Lvl (test code = Calcium Lvl) 8.2 8.5-10.5 [facility] ResourcesUDeserve Technologies [id number] 10:25:00 Test Item Value Reference Range Interpretation Comments Total Protein (test code = Total 7.3 6.4-8.4 Protein) [facility]2019-11-22 10:25:00 Test Item Value Reference Range Interpretation Comments Albumin Lvl (test code = Albumin Lvl) 2.8 3.5-5.0 [facility]2019-11-22 10:25:00 Test Item Value Reference Range Interpretation Comments ALT (test code = ALT) 29 See_Comment [Auto mated message] The system which ge nerated this result transmit yanely reference range : <=65. The reference range was not used to interpr et this result as brielle l/abnormal. [facility] ResourcesPOET TechnologiesFORMERLY [facility] MED[facility] [id number] 10:25:00 Test Item Value Reference Range Interpretation Comments AST (test code = AST) 27 See_Comment [Auto mated message] The system which ge nerated this result transmit yanely reference range : <=37. The reference range was not used to interpr et this result as brielle l/abnormal. [facility] [facility] ResourcesUDeserve Technologies [id number] 10:25:00 Test Item Value Reference Range Interpretation Comments Alk Phos (test code = Alk Phos) 84 39-136 [facility] ResourcesPOET TechnologiesFORMERLY [id number] 10:25:00 Test Item Value Reference Range Interpretation Comments Bili Total (test code = Bili Total) 0.4 0.2-1.3 [facility] SouthMedis[facility] Bioservices [id number] 10:25:00 Test Item Value Reference Range Interpretation Comments eGFR (test code = eGFR) 121 [facility] ResourcesU[facility] Technologies [id number] 10:25:00 Test Item Value Reference Range Interpretation Comments AGAP (test code = AGAP) 8.7 10.0-20.0 [facility]2019-11-22 10:25:00 Test Item Value Reference Range Interpretation Comments B/C Ratio (test code = B/C Ratio) 12 1 6-25 [facility] ResourcesU[facility] Technologies [id number] 10:25:00 Test Item Value Reference Range Interpretation Comments Globulin (test code = Globulin) 4.5 2.7-4.2 [facility] ResourcesU[facility] Technologies [id number] 10:25:00 Test Item Value Reference Range Interpretation Comments A/G Ratio (test code = A/G Ratio) 0.6 1 0.7-1.6 [facility]2019-11-22 10:25:00 Test Item Value Reference Range Interpretation Comments Phosphorus (test code = Phosphorus) 1.9 2.5-4.5 [facility]2019-11-22 10:25:00 Test Item Value Reference Range Interpretation Comments Magnesium Lvl (test code = Magnesium 2.2 1.8-2.4 Lvl) [facility] CampusKlfhkxrTHNUJAVGUN7067-05-51 10:25:00 Test Item Value Reference Range Interpretation Comments WBC (test code = WBC) 13.7 3.7-10.4 [facility] CampusJttnethCKYLKYPBRU7794-08-57 10:25:00 Test Item Value Reference Range Interpretation Comments RBC (test code = RBC) 4.77 4.70-6.10 [facility] CampusAuekinsWHMKJRHNXL3446-48-49 10:25:00 Test Item Value Reference Range Interpretation Comments Hgb (test code = Hgb) 11.6 14.0-18.0 [facility] CampusVrihlamNLNVWESAQV1187-59-43 10:25:00 Test Item Value Reference Range Interpretation Comments Hct (test code = Hct) 37.0 42.0-54.0 [facility] CampusGruvgfgVOQUYMWLSW0148-41-61 10:25:00 Test Item Value Reference Range Interpretation Comments MCV (test code = MCV) 77.6 80.0-94.0 [facility] CampusPtrcnalMDHEHPHQPS9560-00-05 10:25:00 Test Item Value Reference Range Interpretation Comments MCH (test code = MCH) 24.4 pg 27.0-31.0 [facility] CampusRltsipkMHARWGDWPP6199-01-70 10:25:00 Test Item Value Reference Range Interpretation Comments MCHC (test code = MCHC) 31.4 32.0-36.0 [facility] CampusQzsqfshQERLFSNRZI8174-01-03 10:25:00 Test Item Value Reference Range Interpretation Comments RDW (test code = RDW) 17.0 11.5-14.5 [facility] CampusFtbrhuyESSUIHWQJQ1489-92-44 10:25:00 Test Item Value Reference Range Interpretation Comments Platelet (test code = Platelet) 247 133-450 [facility] CampusCtrpgekPAJVQGXVGW1839-06-16 10:25:00 Test Item Value Reference Range Interpretation Comments MPV (test code = MPV) 9.0 7.4-10.4 [facility] CampusIjskiaoJGNEVTSGMJ9781-48-48 10:25:00 Test Item Value Reference Range Interpretation Comments Plt Morph (test code = Normal (02/07/19 4:25 Plt Morph) AM) [facility] CampusUqgepsiCTBZHEBEQK0307-95-74 10:25:00 Test Item Value Reference Range Interpretation Comments Segs (test code = Segs) 69.9 45.0-75.0 [facility] CampusMuqcyuaXIPJPMRESG3386-89-58 10:25:00 Test Item Value Reference Range Interpretation Comments Lymphocytes (test code = Lymphocytes) 17.7 20.0-40.0 [facility] CampusSpugrxwBMDSCMMYJG2645-83-37 10:25:00 Test Item Value Reference Range Interpretation Comments Monocytes (test code = Monocytes) 10.4 2.0-12.0 [facility] CampusVauokycHSKDKNJQCU1248-29-51 10:25:00 Test Item Value Reference Range Interpretation Comments Eosinophils (test code = 1.6 See_Comment [A utomated message] The Eosinophils) system which ge nerated this result tra nsmitted reference range : <=4.0. The reference r matthieu was not used to int erpret this result as normal/abnormal . [facility] CampusAwrrpydZIIJHYAEWH1998-88-53 10:25:00 Test Item Value Reference Range Interpretation Comments Basophils (test code = 0.4 See_Comment [Aut omated message] The Basophils) system which ge nerated this result tra nsmitted reference range : <=1.0. The reference r matthieu was not used to int erpret this result as normal/abnormal . [facility] CampusUfamwqvFNGZEHEECU9217-43-83 10:25:00 Test Item Value Reference Range Interpretation Comments Neutrophils # (test code = Neutrophils 9.6 1.5-8.1 #) [facility] CampusQauazqbIDCCMMRUCL0864-83-38 10:25:00 Test Item Value Reference Range Interpretation Comments Lymphocytes # (test code = Lymphocytes 2.4 1.0-5.5 #) [facility] CampusWqfgxnnIHSSZTZACW8686-55-73 10:25:00 Test Item Value Reference Range Interpretation Comments Monocytes # (test code 1.4 See_Comment [Aut omated message] The = Monocytes #) system which generated this result tra nsmitted reference range : <=0.8. The reference r matthieu was not used to int erpret this result as normal/abnormal . [facility] CampusHdelrlgLDCBJHXUHP3332-81-38 10:25:00 Test Item Value Reference Range Interpretation Comments Eosinophils # (test code 0.2 See_Comment [A utomated message] The = Eosinophils #) system whic h generated this result tra nsmitted reference range : <=0.5. The reference r matthieu was not used to int erpret this result as normal/abnormal . [facility] SouthLrsraupRANBYUIHIK7797-33-95 10:25:00 Test Item Value Reference Range Interpretation Comments Basophils # (test code 0.1 See_Comment [Aut omated message] The = Basophils #) system which generated this result tra nsmitted reference range : <=0.2. The reference r matthieu was not used to int erpret this result as normal/abnormal . [facility] CampusIittcthSXAWRGNUQT3939-35-62 10:25:00 Test Item Value Reference Range Interpretation Comments Microcyte (test code = 1+ *ABN*(02/07/19 Microcyte) 4:25 AM) [facility] SouthWinster [id number] 10:25:00 Test Item Value Reference Range Interpretation Comments Ca Ion WB (test code = Ca Ion WB) 1.13 1.05-1.25 [facility] ResourcesScaleOut SoftwareROID SSEHEEP9302-03-55 10:25:00 Test Item Value Reference Range Interpretation Comments Ca Norm WB (test code = Ca Norm WB) 1.07 1.05-1.25 [facility] ResourcesPOET TechnologiesCARCryoportAC IQORADC0779-19-64 08:10:00 Test Item Value Reference Range Interpretation Comments CK MB (test code = CK MB) 3.2 0.5-3.6 [facility] SouthViron Therapeutics HSQBVNW5536-95-50 08:10:00 Test Item Value Reference Range Interpretation Comments CK MB Index (test 0.4 1 See_Comment [Automate d message] The code = CK MB Index) system w [facility] generated this result transmit yanely reference range : <=2.5. The reference range was not used to interpr et this result as brielle l/abnormal. [facility] ResourcesTrovit RJVOKOZ4926-91-83 08:10:00 Test Item Value Reference Range Interpretation Comments Troponin-I (test code no gt See_Comment [Auto mated message] The = Troponin-I) system which g enerated this result transmit yanely reference range : <=0.40. The reference r matthieu was not used to interpr et this result as brielle l/abnormal. [facility] SouthCARDIAC XVGJIZF8922-63-90 08:10:00 Test Item Value Reference Range Interpretation Comments Total CK (test code = Total CK) 881 12-191 [facility] SouthCHEM [id number] 08:10:00 Test Item Value Reference Range Interpretation Comments Phosphorus (test code = Phosphorus) 1.2 2.5-4.5 [facility] SouthCHEM [id number] 08:10:00 Test Item Value Reference Range Interpretation Comments Magnesium Lvl (test code = Magnesium 2.3 1.8-2.4 Lvl) [facility]LwxtzxwVGQYHQJXUDFC3269-75-20 08:10:00 Test Item Value Reference Range Interpretation Comments AGAP (test code = AGAP) 7.4 10.0-20.0 [facility]SlxqwwkNRZNTBVBJDKB7039-20-55 08:10:00 Test Item Value Reference Range Interpretation Comments B/C Ratio (test code = B/C Ratio) 8 1 6-25 [facility] SystemXtcwabbPMWSJZQBAKWJ0876-72-65 08:10:00 Test Item Value Reference Range Interpretation Comments Globulin (test code = Globulin) 4.4 2.7-4.2 [facility] SystemZxeamhcTEZEPCTYNHDT1123-70-16 08:10:00 Test Item Value Reference Range Interpretation Comments A/G Ratio (test code = A/G Ratio) 0.7 1 0.7-1.6 [facility] SystemRzrbbzvVAMBQUYOQQWR9345-92-10 08:10:00 Test Item Value Reference Range Interpretation Comments Glucose Lvl (test code = Glucose Lvl) 137 70-99 [facility] SystemRousalqAVNBPYPUIUQY0843-98-68 08:10:00 Test Item Value Reference Range Interpretation Comments BUN (test code = BUN) 5 7-22 [facility] SystemGudbhlwRFTZJYZMYJKI8528-84-76 08:10:00 Test Item Value Reference Range Interpretation Comments Creatinine Lvl (test code = Creatinine 0.60 0.50-1.40 Lvl) [facility] SystemLfzkvmxFSPPEYRAVOIY5020-40-59 08:10:00 Test Item Value Reference Range Interpretation Comments Sodium Lvl (test code = Sodium Lvl) 138 135-145 [facility] SystemOjlgtxfTJTOXEADDRXK5164-78-32 08:10:00 Test Item Value Reference Range Interpretation Comments Potassium Lvl (test code = Potassium 3.4 3.5-5.1 Lvl) [facility] SystemWkesgdkSUFZPXEEERTA9844-85-37 08:10:00 Test Item Value Reference Range Interpretation Comments Chloride Lvl (test code = Chloride Lvl) 103 95-109 [facility] SystemEbcyxtdCWSSRLNNQBNR9938-48-13 08:10:00 Test Item Value Reference Range Interpretation Comments CO2 (test code = CO2) 31 24-32 [facility] SystemAhsmkfqXWJOBNXCRTMI2565-00-98 08:10:00 Test Item Value Reference Range Interpretation Comments Calcium Lvl (test code = Calcium Lvl) 7.9 8.5-10.5 [facility] SystemNcwftbpFYDCUFGQXXAK2012-46-48 08:10:00 Test Item Value Reference Range Interpretation Comments Total Protein (test code = Total 7.4 6.4-8.4 Protein) [facility] SystemJvkvsxpQPZJUGCDSVBJ5908-80-94 08:10:00 Test Item Value Reference Range Interpretation Comments Albumin Lvl (test code = Albumin Lvl) 3.0 3.5-5.0 [facility] SystemGdpflwmXQUYTQICXCBI3098-69-94 08:10:00 Test Item Value Reference Range Interpretation Comments ALT (test code = ALT) 34 See_Comment [Auto mated message] The system which ge nerated this result transmit yanely reference range : <=65. The reference range was not used to interpr et this result as brielle l/abnormal. [facility] SystemAjwefpgZGPGQPJWPEOQ6798-36-85 08:10:00 Test Item Value Reference Range Interpretation Comments AST (test code = AST) 34 See_Comment [Auto mated message] The system which ge nerated this result transmit yanely reference range : <=37. The reference range was not used to interpr et this result as brielle l/abnormal. [facility] SystemDndlzogVQJXCTDJLKXO4428-17-29 08:10:00 Test Item Value Reference Range Interpretation Comments Alk Phos (test code = Alk Phos) 72 39-136 [facility] SystemStutrbuDDHPDZQYMPVW8826-12-61 08:10:00 Test Item Value Reference Range Interpretation Comments Bili Total (test code = Bili Total) 0.5 0.2-1.3 [facility] SystemLmgqkajNYHERAQDOUGC5846-26-75 08:10:00 Test Item Value Reference Range Interpretation Comments eGFR (test code = eGFR) 121 [facility] SouthLextkyzGZUVLPMLCA2575-31-56 08:10:00 Test Item Value Reference Range Interpretation Comments Segs (test code = Segs) 76.7 45.0-75.0 [facility] CampusZvxownuVPKSMWEFXU2819-43-18 08:10:00 Test Item Value Reference Range Interpretation Comments Lymphocytes (test code = Lymphocytes) 13.2 20.0-40.0 [facility] CampusIqvfogkXCUJOKRBYB2007-47-91 08:10:00 Test Item Value Reference Range Interpretation Comments Monocytes (test code = Monocytes) 8.6 2.0-12.0 [facility] CampusYiogzalZYQTAAPCUA0933-51-31 08:10:00 Test Item Value Reference Range Interpretation Comments Eosinophils (test code = 1.5 See_Comment [A utomated message] The Eosinophils) system which ge nerated this result tra nsmitted reference range : <=4.0. The reference r matthieu was not used to int erpret this result as normal/abnormal . [facility] CampusAdavvmlTZJDIBLLGF9629-47-49 08:10:00 Test Item Value Reference Range Interpretation Comments Basophils (test code = 0.0 See_Comment [Aut omated message] The Basophils) system which ge nerated this result tra nsmitted reference range : <=1.0. The reference r matthieu was not used to int erpret this result as normal/abnormal . [facility] CampusOivagyaQFWHZSFQTM1962-19-53 08:10:00 Test Item Value Reference Range Interpretation Comments Neutrophils # (test code = Neutrophils 11.1 1.5-8.1 #) [facility] CampusAklogblUIYEFSVLPJ1452-51-49 08:10:00 Test Item Value Reference Range Interpretation Comments Lymphocytes # (test code = Lymphocytes 1.9 1.0-5.5 #) [facility] CampusPofucixHOQAQKSLSX7589-82-83 08:10:00 Test Item Value Reference Range Interpretation Comments Monocytes # (test code 1.2 See_Comment [Aut omated message] The = Monocytes #) system which generated this result tra nsmitted reference range : <=0.8. The reference r matthieu was not used to int erpret this result as normal/abnormal . [facility] CampusEubpnhyTXSJMUOZXX8801-10-70 08:10:00 Test Item Value Reference Range Interpretation Comments Eosinophils # (test code 0.2 See_Comment [A utomated message] The = Eosinophils #) system wh h generated this result tra nsmitted reference range : <=0.5. The reference r matthieu was not used to int erpret this result as normal/abnormal . [facility] CampusUooewmjFOAVLGONXW5889-10-44 08:10:00 Test Item Value Reference Range Interpretation Comments Basophils # (test code 0.0 See_Comment [Aut omated message] The = Basophils #) system which generated this result tra nsmitted reference range : <=0.2. The reference r matthieu was not used to int erpret this result as normal/abnormal . [facility] CampusGuafnjeNKARWGHVAV5694-97-18 08:10:00 Test Item Value Reference Range Interpretation Comments Microcyte (test code = 1+ *ABN*(02/06/19 Microcyte) 2:10 AM) [facility] CampusUrxtaugJLCLFXYUNS3922-98-91 08:10:00 Test Item Value Reference Range Interpretation Comments Polychrom (test code = Moderate Polychrom) *ABN*(02/06/19 2:10 AM) [facility] CampusFweduzpLCTFCSUYOH1490-99-63 08:10:00 Test Item Value Reference Range Interpretation Comments Large Plt (test code Moderate *ABN*(02/06/19 = Large Plt) 2:10 AM) [facility] CampusJfssnigBZBMTBCGWA6493-90-66 08:10:00 Test Item Value Reference Range Interpretation Comments WBC (test code = WBC) 14.4 3.7-10.4 [facility] CampusXmpomlmEVGCBFCGWJ2934-50-99 08:10:00 Test Item Value Reference Range Interpretation Comments RBC (test code = RBC) 4.82 4.70-6.10 [facility] CampusOoyovsnIQAYYBBYKN1313-36-18 08:10:00 Test Item Value Reference Range Interpretation Comments Hgb (test code = Hgb) 11.8 14.0-18.0 [facility] CampusJmuzlfzPICBGCBPTT9982-60-15 08:10:00 Test Item Value Reference Range Interpretation Comments Hct (test code = Hct) 37.3 42.0-54.0 [facility] CampusChmbxetVVAMZFIZYQ7324-55-43 08:10:00 Test Item Value Reference Range Interpretation Comments MCV (test code = MCV) 77.4 80.0-94.0 [facility] CampusRevnwmeESKJZOENSU7238-99-28 08:10:00 Test Item Value Reference Range Interpretation Comments MCH (test code = MCH) 24.5 pg 27.0-31.0 [facility] CampusKqeztjkZVBHNIZCSX3645-18-25 08:10:00 Test Item Value Reference Range Interpretation Comments MCHC (test code = MCHC) 31.7 32.0-36.0 [facility] ResourcesXqzhrmpOXWHTDKTEQ7074-87-67 08:10:00 Test Item Value Reference Range Interpretation Comments RDW (test code = RDW) 16.8 11.5-14.5 [facility] ResourcesSxvemcyGSJYXOUDFQ5608-68-68 08:10:00 Test Item Value Reference Range Interpretation Comments Platelet (test code = Platelet) 223 133-450 [facility] ResourcesEjdofulUGVRTENYUY1527-21-77 08:10:00 Test Item Value Reference Range Interpretation Comments MPV (test code = MPV) 9.0 7.4-10.4 [facility]PAR[facility]YRO[facility] IHJALUI0471-76-90 08:10:00 Test Item Value Reference Range Interpretation Comments Ca Ion WB (test code = Ca Ion WB) 1.03 1.05-1.25 [facility]annPARATHYROID VEYTNDQ3637-63-07 08:10:00 Test Item Value Reference Range Interpretation Comments Ca Norm WB (test code = Ca Norm WB) 0.98 1.05-1.25 [facility]CARD[facility] QKGBXZD3699-77-45 22:15:00 Test Item Value Reference Range Interpretation Comments Total CK (test code = Total CK) 1104 12-191 [facility] ResourcesannCARDIAC ACFQIUD7596-30-70 22:15:00 Test Item Value Reference Range Interpretation Comments CK MB (test code = CK MB) 4.2 0.5-3.6 [facility] IFHBJEH1421-45-62 22:15:00 Test Item Value Reference Range Interpretation Comments CK MB Index (test 0.4 1 See_Comment [Automate d message] The code = CK MB Index) system w [facility] generated this result transmit yanely reference range : <=2.5. The reference range was not used to interpr et this result as brielle l/abnormal. [facility]annDR[facility] QTUHCF5749-56-59 22:15:00 Test Item Value Reference Range Interpretation Comments U Amph Scr (test code Negative *NA*(02/05/19 = U Amph Scr) 4:15 PM) [facility] HermannDR[facility] [id number] 22:15:00 Test Item Value Reference Range Interpretation Comments U Stephanie Scr (test code Negative *NA*(02/05/19 = U Stephanie Scr) 4:15 PM) [facility]DR[facility] HFRKVC6713-14-60 22:15:00 Test Item Value Reference Range Interpretation Comments U Benzodiaz Scr (test Negative *NA*(02/05/19 code = U Benzodiaz Scr) 4:15 PM) [facility]annDR[facility] OEVUHV3535-20-70 22:15:00 Test Item Value Reference Range Interpretation Comments U Cocaine Scr (test Negative *NA*(02/05/19 code = U Cocaine Scr) 4:15 PM) [facility] OVQGYG7950-51-77 22:15:00 Test Item Value Reference Range Interpretation Comments U Cannab Scr (test Negative *NA*(02/05/19 code = U Cannab Scr) 4:15 PM) [facility] [id number] 22:15:00 Test Item Value Reference Range Interpretation Comments U Opiate Scr (test Negative *NA*(02/05/19 code = U Opiate Scr) 4:15 PM) [facility] [id number] 22:15:00 Test Item Value Reference Range Interpretation Comments U Phencyclidine Scr (test Negative code = U Phencyclidine *NA*(02/05/19 4:15 Scr) PM) [facility] RFSRIS6518-71-75 22:15:00 Test Item Value Reference Range Interpretation Comments U Methadone Scr (test Negative *NA*(02/05/19 code = U Methadone Scr) 4:15 PM) [facility]DR[facility] [id number] 22:15:00 Test Item Value Reference Range Interpretation Comments U Propoxyph Scr (test Negative *NA*(02/05/19 code = U Propoxyph Scr) 4:15 PM) [facility] [id number] 22:15:00 Test Item Value Reference Range Interpretation Comments UDS Note (test code = See Note (02/05/19 4:15 UDS Note) PM) [facility] ZlnvjftKLMJIRBFTO8503-50-80 18:35:00 Test Item Value Reference Range Interpretation Comments Vanco Tr (test code = Vanco Tr) 15.1 [facility] IxefzxpLHNSYFYBDL6439-46-24 18:35:00 Test Item Value Reference Range Interpretation Comments Vanco Tr TND (test code = Vanco Tr 1300 1 TND) [facility]annCHE[facility] DSYIG5135-24-28 16:57:00 Test Item Value Reference Range Interpretation Comments Amylase Lvl (test code = Amylase Lvl) 31 25-115 [facility]2019-11-20 16:57:00 Test Item Value Reference Range Interpretation Comments Lipase Lvl (test code = Lipase Lvl) 74 73-393 [facility]2019-11-20 16:57:00 Test Item Value Reference Range Interpretation Comments Procalcitonin Lvl (test 3.13 See_Comment [Au tomated message] code = Procalcitonin Lvl) Th e system which generated this result transmitted ref erence range: <=0.10. The reference range was not used to interpr et this result as normal/abnormal . [facility]2019-11-20 16:57:00 Test Item Value Reference Range Interpretation Comments Lactic Acid Lvl (test code = Lactic 1.3 0.5-2.2 Acid Lvl) [facility]2019-11-20 16:57:00 Test Item Value Reference Range Interpretation Comments Bili Total (test code = Bili Total) 0.5 0.2-1.3 [facility]2019-11-20 16:57:00 Test Item Value Reference Range Interpretation Comments Bili Direct (test code 0.1 See_Comment [Aut omated message] The = Bili Direct) system which generated this result tra nsmitted reference range : <=0.3. The reference r matthieu was not used to int erpret this result as brielle l/abnormal. [facility]2019-11-20 16:57:00 Test Item Value Reference Range Interpretation Comments Bili Indirect (test 0.4 See_Comment [Automa yanely message] The code = Bili Indirect) system which generated this result tra nsmitted reference range : <=1.0. The reference r matthieu was not used to int erpret this result as normal/abnormal . [facility] SystemWdfcqucHPPEOJYNVRRB3550-15-29 16:57:00 Test Item Value Reference Range Interpretation Comments AGAP (test code = AGAP) 11.4 10.0-20.0 [facility] SystemLnxkqsvBHDZSVZFIVBV5834-09-51 16:57:00 Test Item Value Reference Range Interpretation Comments B/C Ratio (test code = B/C Ratio) 12 1 6-25 [facility] SystemDawpfakYPHNAQUSNPUC8423-73-49 16:57:00 Test Item Value Reference Range Interpretation Comments Globulin (test code = Globulin) 4.3 2.7-4.2 [facility] SystemHexitbdTCBJRJEFIBNI2669-41-58 16:57:00 Test Item Value Reference Range Interpretation Comments A/G Ratio (test code = A/G Ratio) 0.6 1 0.7-1.6 [facility] SystemBiusjmoSGLFJULQZDEJ8826-47-35 16:57:00 Test Item Value Reference Range Interpretation Comments Bili Total (test code = Bili Total) 0.5 0.2-1.3 [facility] SystemHcebsduXHPWYAUDLQKM8186-24-98 16:57:00 Test Item Value Reference Range Interpretation Comments Glucose Lvl (test code = Glucose Lvl) 121 70-99 [facility] SystemQwemrckCNLZVWFDAAYV0935-10-04 16:57:00 Test Item Value Reference Range Interpretation Comments BUN (test code = BUN) 7 7-22 [facility] SystemTaozeqiSDDUUURRZIQL7247-61-91 16:57:00 Test Item Value Reference Range Interpretation Comments Creatinine Lvl (test code = Creatinine 0.60 0.50-1.40 Lvl) [facility] SystemWrhyzjcIJVKHKERVWQF4449-70-66 16:57:00 Test Item Value Reference Range Interpretation Comments Sodium Lvl (test code = Sodium Lvl) 140 135-145 [facility] SystemBadjkqbPJFCRKKWDWPS8177-94-29 16:57:00 Test Item Value Reference Range Interpretation Comments Potassium Lvl (test code = Potassium 4.4 3.5-5.1 Lvl) [id number] 16:57:00 Test Item Value Reference Range Interpretation Comments Chloride Lvl (test code = Chloride Lvl) 108 95-109 [facility][id number] 16:57:00 Test Item Value Reference Range Interpretation Comments CO2 (test code = CO2) 25 24-32 [facility]QvjoiywWHHVIVQOSUZM9424-94-84 16:57:00 Test Item Value Reference Range Interpretation Comments Calcium Lvl (test code = Calcium Lvl) 7.5 8.5-10.5 [facility]MtzyhheNNNVHJJGWSOW2068-37-46 16:57:00 Test Item Value Reference Range Interpretation Comments Total Protein (test code = Total 7.0 6.4-8.4 Protein) [facility][id number] 16:57:00 Test Item Value Reference Range Interpretation Comments Albumin Lvl (test code = Albumin Lvl) 2.7 3.5-5.0 [facility]IxqapwsQITGQNWZCMVE0080-49-07 16:57:00 Test Item Value Reference Range Interpretation Comments ALT (test code = ALT) 35 See_Comment [Auto mated message] The system which ge nerated this result transmit yanely reference range : <=65. The reference range was not used to interpr et this result as brielle l/abnormal. [facility] SystemNckzenxEWJAXHDJLWNA8745-73-90 16:57:00 Test Item Value Reference Range Interpretation Comments AST (test code = AST) 51 See_Comment [Auto mated message] The system which ge nerated this result transmit yanely reference range : <=37. The reference range was not used to interpr et this result as brielle l/abnormal. [facility] SystemOpdbzktKDIPSUCJFSII0074-32-79 16:57:00 Test Item Value Reference Range Interpretation Comments Alk Phos (test code = Alk Phos) 69 39-136 [facility] SystemKfrjfffNUNMWLMZPCVI7333-22-69 16:57:00 Test Item Value Reference Range Interpretation Comments eGFR (test code = eGFR) 121 [facility] CampusEmmmwmnGNZCOLCSIH4654-97-16 16:57:00 Test Item Value Reference Range Interpretation Comments WBC (test code = WBC) 16.5 3.7-10.4 [facility] CampusAushqtdPOKYFIWXPI9548-36-34 16:57:00 Test Item Value Reference Range Interpretation Comments RBC (test code = RBC) 5.09 4.70-6.10 [facility] CampusPafwoicYEDDVDGWNU3329-24-52 16:57:00 Test Item Value Reference Range Interpretation Comments Hgb (test code = Hgb) 12.6 14.0-18.0 [facility] CampusWdckgdaURMWPKUGRF4296-50-08 16:57:00 Test Item Value Reference Range Interpretation Comments Hct (test code = Hct) 39.3 42.0-54.0 [facility] CampusZesrfvyOENPTGCILY8744-29-09 16:57:00 Test Item Value Reference Range Interpretation Comments MCV (test code = MCV) 77.2 80.0-94.0 [facility] CampusAomapzgXFWYDBVBSU4196-59-26 16:57:00 Test Item Value Reference Range Interpretation Comments MCH (test code = MCH) 24.7 pg 27.0-31.0 [facility] CampusXxqzolbLJAIIBSJKF0785-45-40 16:57:00 Test Item Value Reference Range Interpretation Comments MCHC (test code = MCHC) 32.0 32.0-36.0 [facility] CampusIicqmxhATVBFYNUEP1184-84-14 16:57:00 Test Item Value Reference Range Interpretation Comments RDW (test code = RDW) 17.3 11.5-14.5 [facility] CampusTwhgqbdLDKJIJEIUG3499-07-18 16:57:00 Test Item Value Reference Range Interpretation Comments Platelet (test code = Platelet) 186 133-450 [facility] CampusOcnzdnoXSPRJNSEPO9809-20-65 16:57:00 Test Item Value Reference Range Interpretation Comments MPV (test code = MPV) 8.4 7.4-10.4 [facility] CampusVtzqsorZDHHFUFCCA1214-15-00 16:57:00 Test Item Value Reference Range Interpretation Comments Segs (test code = Segs) 74.6 45.0-75.0 [facility] CampusAgvhsjjGJPQTIPAGR8019-44-52 16:57:00 Test Item Value Reference Range Interpretation Comments Lymphocytes (test code = Lymphocytes) 13.0 20.0-40.0 [facility] CampusDoyqnbvIISGBYLONG5731-28-67 16:57:00 Test Item Value Reference Range Interpretation Comments Monocytes (test code = Monocytes) 11.2 2.0-12.0 [facility] CampusLnufivfNJWCTWXYRN3993-08-80 16:57:00 Test Item Value Reference Range Interpretation Comments Eosinophils (test code = 0.3 See_Comment [A utomated message] The Eosinophils) system which ge nerated this result tra nsmitted reference range : <=4.0. The reference r matthieu was not used to int erpret this result as normal/abnormal . [facility] CampusXtmeiztXRIQQTXAJZ3130-66-35 16:57:00 Test Item Value Reference Range Interpretation Comments Basophils (test code = 0.9 See_Comment [Aut omated message] The Basophils) system which ge nerated this result tra nsmitted reference range : <=1.0. The reference r matthieu was not used to int erpret this result as normal/abnormal . [facility] CampusEqsbqakQNHZHTXOGN1773-33-80 16:57:00 Test Item Value Reference Range Interpretation Comments Neutrophils # (test code = Neutrophils 12.3 1.5-8.1 #) [facility] CampusActvtztOPJMVKBVOG9746-79-40 16:57:00 Test Item Value Reference Range Interpretation Comments Lymphocytes # (test code = Lymphocytes 2.1 1.0-5.5 #) [facility] CampusMpxhmktDPUFDVXCQR5773-75-07 16:57:00 Test Item Value Reference Range Interpretation Comments Monocytes # (test code 1.9 See_Comment [Aut omated message] The = Monocytes #) system which generated this result tra nsmitted reference range : <=0.8. The reference r matthieu was not used to int erpret this result as normal/abnormal . [facility] CampusEvvsgewDDCFTXRRRO0363-44-44 16:57:00 Test Item Value Reference Range Interpretation Comments Eosinophils # (test code 0.1 See_Comment [A utomated message] The = Eosinophils #) system whic h generated this result tra nsmitted reference range : <=0.5. The reference r matthieu was not used to int erpret this result as normal/abnormal . [facility] CampusWzmxhrwTKLQXHKJGE6018-51-50 16:57:00 Test Item Value Reference Range Interpretation Comments Basophils # (test code 0.1 See_Comment [Aut omated message] The = Basophils #) system which generated this result tra nsmitted reference range : <=0.2. The reference r matthieu was not used to int erpret this result as normal/abnormal . [facility] CampusEhcqaewATAYVMDJZA7127-90-95 16:57:00 Test Item Value Reference Range Interpretation Comments Microcyte (test code = 1+ *ABN*(02/05/19 Microcyte) 10:57 AM) [facility]2019-11-20 10:15:00 Test Item Value Reference Range Interpretation Comments Magnesium Lvl (test code = Magnesium 1.8 1.8-2.4 Lvl) [facility]2019-11-20 10:15:00 Test Item Value Reference Range Interpretation Comments Phosphorus (test code = Phosphorus) 2.0 2.5-4.5 [facility] CampusYqwtynmWWNNVBHYOH4818-96-60 10:15:00 Test Item Value Reference Range Interpretation Comments Large Plt (test code Moderate *ABN*(02/05/19 = Large Plt) 4:15 AM) [facility]UoofohkJYSQVXXCFO1266-93-99 10:15:00 Test Item Value Reference Range Interpretation Comments Hep Bs Ag (test code Negative *NA*(02/05/19 = Hep Bs Ag) 4:15 AM) [facility] ResourcesOsbslfmEWNDNOJVAL2229-03-38 10:15:00 Test Item Value Reference Range Interpretation Comments Hep B Core IgM (test Negative *NA*(02/05/19 code = Hep B Core 4:15 AM) IgM) [facility] ResourcesGznzeuiMFPVPTEBND8616-44-14 10:15:00 Test Item Value Reference Range Interpretation Comments Hep C Ab (test code = Negative *NA*(02/05/19 Hep C Ab) 4:15 AM) [facility] ResourcesJwpgntuCMIUDCZFLM4395-83-49 10:15:00 Test Item Value Reference Range Interpretation Comments Hep A IgM (test code Negative *NA*(02/05/19 = Hep A IgM) 4:15 AM) [facility]ann[facility] [id number] 10:15:00 Test Item Value Reference Range Interpretation Comments Ca Ion WB (test code = Ca Ion WB) 0.96 1.05-1.25 [facility]annK[facility] [id number] 10:15:00 Test Item Value Reference Range Interpretation Comments Ca Norm WB (test code = Ca Norm WB) 0.97 1.05-1.25 [facility] ResourcesannBACTERIAL - [id number] 22:20:00 Test Item Value Reference Range Interpretation Comments Strep pneumoniae Ag Negative (02/04/19 (test code = Strep 4:20 PM) pneumoniae Ag) [facility] ResourcesannBACTERIAL - [id number] 22:20:00 Test Item Value Reference Range Interpretation Comments Source Strep (test code Urine *NA*(02/04/19 = Source Strep) 4:20 PM) [facility] ResourcesKqpckbpXOZGSOFCHW0681-51-39 22:20:00 Test Item Value Reference Range Interpretation Comments HIV Ag/Ab 4th Gen Negative *NA*(02/04/19 (test code = HIV 4:20 PM) Ag/Ab 4th Gen) [facility]annMOLECULAR [id number] 22:20:00 Test Item Value Reference Range Interpretation Comments Source Respiratory Nasophrngl Swb Panel PCR (test code = *NA*(02/04/19 4:20 PM) Source Respiratory Panel PCR) [facility] ResourcesannAKLECULAR [id number] 22:20:00 Test Item Value Reference Range Interpretation Comments Influenza A PCR (test Negative *NA*(02/04/19 code = Influenza A PCR) 4:20 PM) [facility] [id number] 22:20:00 Test Item Value Reference Range Interpretation Comments Influenza B PCR (test Negative *NA*(02/04/19 code = Influenza B PCR) 4:20 PM) [facility] [id number] 22:20:00 Test Item Value Reference Range Interpretation Comments RSV PCR (test code = Negative *NA*(02/04/19 RSV PCR) 4:20 PM) [facility] [id number] 22:20:00 Test Item Value Reference Range Interpretation Comments Source Parainfluenza Nasophrngl Swb (test code = Source *NA*(02/04/19 4:20 Parainfluenza) PM) [facility] [id number] 22:20:00 Test Item Value Reference Range Interpretation Comments Parainfluenza type 1 Negative (test code = *NA*(02/04/19 4:20 Parainfluenza type 1) PM) [facility] [id number] 22:20:00 Test Item Value Reference Range Interpretation Comments Parainfluenza type 2 Negative (test code = *NA*(02/04/19 4:20 Parainfluenza type 2) PM) [facility] [id number] 22:20:00 Test Item Value Reference Range Interpretation Comments Parainfluenza type 3 Negative (test code = *NA*(02/04/19 4:20 Parainfluenza type 3) PM) [facility] [id number] 22:20:00 Test Item Value Reference Range Interpretation Comments Parainfluenza type 4 Negative (test code = *NA*(02/04/19 4:20 Parainfluenza type 4) PM) [facility]BA[facility] - [id number] 22:14:00 Test Item Value Reference Range Interpretation Comments Source Strep (test code Cerebral Spinal Fluid = Source Strep) [facility]annBACTERIAL - [id number] 22:14:00 Test Item Value Reference Range Interpretation Comments Strep pneumoniae Ag Negative (02/04/19 (test code = Strep 4:14 PM) pneumoniae Ag) [facility]2019-11-19 22:14:00 Test Item Value Reference Range Interpretation Comments Tube Num CSF (test code = Tube Num CSF) 1 1 [facility]2019-11-19 22:14:00 Test Item Value Reference Range Interpretation Comments Color CSF (test code Colorless (02/04/19 4:14 = Color CSF) PM) [facility]2019-11-19 22:14:00 Test Item Value Reference Range Interpretation Comments Clarity CSF (test code = Clear (02/04/19 4:14 Clarity CSF) PM) [facility]2019-11-19 22:14:00 Test Item Value Reference Range Interpretation Comments Supernat CSF (test Colorless (02/04/19 code = Supernat CSF) 4:14 PM) [facility]2019-11-19 22:14:00 Test Item Value Reference Range Interpretation Comments Nucleated Cells CSF 1 See_Comment [Automa yanely message] The (test code = Nucleated syste m which generated Cells CSF) this result tra nsmitted reference range : <=53. The reference r matthieu was not used to int erpret this result as normal/abnormal . [facility]2019-11-19 22:14:00 Test Item Value Reference Range Interpretation Comments RBC CSF (test code = 53 See_Comment [Autom ated message] The RBC CSF) system which ge nerated this result transmit yanely reference range : <=03. The reference range was not used to interpr et this result as brielle l/abnormal. [facility]2019-11-19 22:14:00 Test Item Value Reference Range Interpretation Comments Glucose CSF (test code = Glucose CSF) 105 45-80 [facility]2019-11-19 22:14:00 Test Item Value Reference Range Interpretation Comments Protein CSF (test code = Protein CSF) 56 15-45 [facility]2019-11-19 22:14:00 Test Item Value Reference Range Interpretation Comments Tube Num CSF (test code = Tube Num CSF) 4 1 [facility]2019-11-19 22:14:00 Test Item Value Reference Range Interpretation Comments Color CSF (test code Colorless (02/04/19 4:14 = Color CSF) PM) [facility]2019-11-19 22:14:00 Test Item Value Reference Range Interpretation Comments Clarity CSF (test code = Clear (02/04/19 4:14 Clarity CSF) PM) [facility] [id number] 22:14:00 Test Item Value Reference Range Interpretation Comments Supernat CSF (test Colorless (02/04/19 code = Supernat CSF) 4:14 PM) [facility] [id number] 22:14:00 Test Item Value Reference Range Interpretation Comments Nucleated Cells CSF 1 See_Comment [Automa yanely message] The (test code = Nucleated syste m which generated Cells CSF) this result tra nsmitted reference range : <=53. The reference r matthieu was not used to int erpret this result as normal/abnormal . [facility] [id number] 22:14:00 Test Item Value Reference Range Interpretation Comments RBC CSF (test code = 4 See_Comment [Autom ated message] The RBC CSF) system which ge nerated this result transmit yanely reference range : <=03. The reference range was not used to interpr et this result as brielle l/abnormal. [facility] [id number] 22:14:00 Test Item Value Reference Range Interpretation Comments Lactic Acid CSF (test code = Lactic 2.3 0.6-2.2 Acid CSF) [facility]FUNGAL - [id number] 22:14:00 Test Item Value Reference Range Interpretation Comments Crypto Ag CSF (test Negative (02/04/19 4:14 code = Crypto Ag CSF) PM) [facility] Re[id number] 22:14:00 Test Item Value Reference Range Interpretation Comments VDRL Scr CSF (test Non Reactive (02/04/19 code = VDRL Scr CSF) 4:14 PM) [facility] SouthMOLECULAR [id number] 22:14:00 Test Item Value Reference Range Interpretation Comments Source HSV (test code = Cerebral Spinal Fluid Source HSV) [facility] [id number] 22:14:00 Test Item Value Reference Range Interpretation Comments HSV 1 by PCR (test Negative (02/04/19 4:14 code = HSV 1 by PCR) PM) [facility] Center[facility] [id number] 22:14:00 Test Item Value Reference Range Interpretation Comments HSV 2 by PCR (test Negative (02/04/19 4:14 code = HSV 2 by PCR) PM) [facility]annMOLECULAR [id number] 22:14:00 Test Item Value Reference Range Interpretation Comments Source VZV (test code = Cerebral Spinal Fluid Source VZV) [facility]MO[facility] [id number] 22:14:00 Test Item Value Reference Range Interpretation Comments VZV PCR (test code = Negative (02/04/19 4:14 VZV PCR) PM) [facility]annVIRAL - [id number] 22:14:00 Test Item Value Reference Range Interpretation Comments Enterovirus PCR CSF Negative (02/04/19 (test code = Enterovirus 4:14 PM) PCR CSF) [facility] ResourcesannGram Stain [id number] 22:14:00 Test Item Value Reference Range Interpretation Comments Gram Stain Report Rare WBC's No Organisms (test code = Gram Seen Stain Report) [facility] SouthCulture: CSF w/Gram [id number] 22:14:00 Test Item Value Reference Range Interpretation Comments Culture: CSF w/Gram Stain (test No Growth code = Culture: CSF w/Gram Stain) [facility] [id number] 19:22:00 Test Item Value Reference Range Interpretation Comments PTT (test code = PTT) 26.9 s 22.9-35.8 [facility] SouthCARDIAC [id number] 18:26:00 Test Item Value Reference Range Interpretation Comments Troponin-I (test code no gt See_Comment [Auto mated message] The = Troponin-I) system which g enerated this result transmit yanely reference range : <=0.40. The reference r matthieu was not used to interpr et this result as brielle l/abnormal. [facility] [id number] 18:26:00 Test Item Value Reference Range Interpretation Comments UA Turbidity (test code = Clear (02/04/19 UA Turbidity) 12:26 PM) [facility] AND [id number] 18:26:00 Test Item Value Reference Range Interpretation Comments UA Spec Grav (test code = UA Spec 1.030 1 Grav) [facility] AND [id number] 18:26:00 Test Item Value Reference Range Interpretation Comments UA pH (test code = UA pH) 5.0 1 5.0-8.0 [facility] AND [id number] 18:26:00 Test Item Value Reference Range Interpretation Comments UA Protein (test code = UA Negative mg/dL Protein) [facility] AND [id number] 18:26:00 Test Item Value Reference Range Interpretation Comments UA Glucose (test code = UA Negative mg/dL Glucose) [facility] AND [id number] 18:26:00 Test Item Value Reference Range Interpretation Comments UA Ketones (test code = UA Trace mg/dL Ketones) [facility] AND [id number] 18:26:00 Test Item Value Reference Range Interpretation Comments UA Bili (test code = Negative *NA*(02/04/19 UA Bili) 12:26 PM) [facility] AND [id number] 18:26:00 Test Item Value Reference Range Interpretation Comments UA Blood (test code = Moderate *ABN*(02/04/19 UA Blood) 12:26 PM) [facility] AND [id number] 18:26:00 Test Item Value Reference Range Interpretation Comments UA Nitrite (test code Negative (02/04/19 = UA Nitrite) 12:26 PM) [facility] AND [id number] 18:26:00 Test Item Value Reference Range Interpretation Comments UA Leuk Est (test Negative (02/04/19 12:26 code = UA Leuk Est) PM) [facility] AND [id number] 18:26:00 Test Item Value Reference Range Interpretation Comments UA Sq Epi (test code = UA Sq Occasional /LPF Epi) [facility] AND [id number] 18:26:00 Test Item Value Reference Range Interpretation Comments UA WBC (test code = 1 See_Comment [Automa yanely message] The UA WBC) system which ge nerated this result transmit yanely reference range : <=5. The reference range was not used to interpr et this result as brielle l/abnormal. [facility] AND [id number] 18:26:00 Test Item Value Reference Range Interpretation Comments UA RBC (test code = 2 See_Comment [Automa yanely message] The UA RBC) system which ge nerated this result transmit yanely reference range : <=2. The reference range was not used to interpr et this result as brielle l/abnormal. [facility] AND [id number] 18:26:00 Test Item Value Reference Range Interpretation Comments UA Bacteria (test code = UA Occasional /HPF Bacteria) [facility] AND [id number] 18:26:00 Test Item Value Reference Range Interpretation Comments UA Mucus (test code = UA Mucus) Few /LPF [facility] AND [id number] 18:26:00 Test Item Value Reference Range Interpretation Comments UA Color (test code = UA Color) Ltyellow [facility] AND [id number] 18:26:00 Test Item Value Reference Range Interpretation Comments UA Urobilinogen (test code = UA no gt 0.1-1.0 Urobilinogen) [facility]CARDIAC [id number] 12:40:00 Test Item Value Reference Range Interpretation Comments Troponin-I (test code no gt See_Comment [Auto mated message] The = Troponin-I) system which g enerated this result transmit yanely reference range : <=0.40. The reference r matthieu was not used to interpr et this result as brielle l/abnormal. [facility] ResourcesUDeserve Technologies [id number] 12:40:00 Test Item Value Reference Range Interpretation Comments Lactic Acid Lvl (test code = Lactic 1.8 0.5-2.2 Acid Lvl) [facility] SouthBACTERIAL - [id number] 09:08:00 Test Item Value Reference Range Interpretation Comments MRSA by PCR (test Positive 2*ABN*(02/04/19 code = MRSA by PCR) 3:08 AM) [facility] ResourcesUDeserve Technologies [id number] 09:08:00 Test Item Value Reference Range Interpretation Comments Ammonia (test code = Ammonia) 30.0 [facility]annCHEM [id number] 09:08:00 Test Item Value Reference Range Interpretation Comments Lactic Acid Lvl (test code = Lactic 2.5 0.5-2.2 Acid Lvl) [facility] SouthMedisync Bioservices [id number] 09:08:00 Test Item Value Reference Range Interpretation Comments Procalcitonin Lvl (test 0.25 See_Comment [Au tomated message] code = Procalcitonin Lvl) Th e system which generated this result transmitted ref erence range: <=0.10. The reference range was not used to interpr et this result as normal/abnormal . [facility] SouthCHEM [id number] 09:08:00 Test Item Value Reference Range Interpretation Comments Bili Direct (test code no gt See_Comment [Aut omated message] The = Bili Direct) system which generated this result tra nsmitted reference range : <=0.3. The reference r matthieu was not used to int erpret this result as brielle l/abnormal. [facility] [id number] 09:08:00 Test Item Value Reference Range Interpretation Comments INR (test code = INR) 1.06 1 0.85-1.17 [facility] [id number] 09:08:00 Test Item Value Reference Range Interpretation Comments PT (test code = PT) 13.6 s 12.0-14.7 [facility] [id number] 09:08:00 Test Item Value Reference Range Interpretation Comments PTT (test code = PTT) 35.4 s 22.9-35.8 [facility] [id number] 09:08:00 Test Item Value Reference Range Interpretation Comments Plt Morph (test code = Normal (02/04/19 3:08 Plt Morph) AM) [facility] SouthGciyqsbCFUUDT9757-47-79 09:08:00 Test Item Value Reference Range Interpretation Comments CHD Risk (test code = CHD Risk) 6.38 1 4.00-7.30 [facility] [id number] 09:08:00 Test Item Value Reference Range Interpretation Comments Trig (test code = Trig) 169 [facility]ieZcxuewvKPWHRV7986-59-62 09:08:00 Test Item Value Reference Range Interpretation Comments Chol (test code = Chol) 217 [facility]IbpbraxOHVPYK9453-00-40 09:08:00 Test Item Value Reference Range Interpretation Comments HDL (test code = HDL) 34 [facility] SouthUlfwcupRBUMYQ0208-18-04 09:08:00 Test Item Value Reference Range Interpretation Comments LDL (Calculated) (test code = LDL 149 (Calculated)) [facility] SouthIcaorcoVPHTKL2139-08-58 09:08:00 Test Item Value Reference Range Interpretation Comments VLDL (test code = VLDL) 34 [facility] THJQNDXCQ7630-64-13 09:08:00 Test Item Value Reference Range Interpretation Comments Hgb A1C (test code = Hgb A1C) 7.3 [facility] ResourcesEftvvrvRGUBQNCGNWHK3600-48-22 06:21:00 Test Item Value Reference Range Interpretation Comments Chloride Lvl (test code = Chloride Lvl) 105 95-109 [facility]stcgiwWPXADQVFJSSE0509-47-24 06:21:00 Test Item Value Reference Range Interpretation Comments Sodium Lvl (test code = Sodium Lvl) 143 135-145 [facility]MgikxcbQDRYZXUEDNWP2190-93-93 06:21:00 Test Item Value Reference Range Interpretation Comments Potassium Lvl (test code = Potassium 4.0 3.5-5.1 Lvl) [facility]XslfaoyFPUUQESYDJBU9823-61-26 06:21:00 Test Item Value Reference Range Interpretation Comments Calcium Lvl (test code = Calcium Lvl) 8.9 8.5-10.5 [facility]SqnllkoSDUDXEDGMIEH6554-49-19 06:21:00 Test Item Value Reference Range Interpretation Comments eGFR (test code = eGFR) 117 [facility] SystemNlotkscHMTIQPHKDBKU7890-39-04 06:21:00 Test Item Value Reference Range Interpretation Comments Creatinine Lvl (test code = Creatinine 0.65 0.50-1.40 Lvl) [facility] SystemMidkrvcODMRCIGERIQG5549-28-32 06:21:00 Test Item Value Reference Range Interpretation Comments BUN (test code = BUN) 9 7-22 [facility]NmiqygwMOSOVVZIFAYJ9230-37-97 06:21:00 Test Item Value Reference Range Interpretation Comments Glucose Lvl (test code = Glucose Lvl) 138 70-99 [facility] SystemYmeuozlYXAACITEHBGP0612-39-55 06:21:00 Test Item Value Reference Range Interpretation Comments CO2 (test code = CO2) 29 24-32 [facility]XzbmwlmJHKUXKEUQAYP9435-16-65 06:21:00 Test Item Value Reference Range Interpretation Comments AGAP (test code = AGAP) 13.0 10.0-20.0 [facility] CampusKkcymqmOYFNMERICC4230-11-11 06:21:00 Test Item Value Reference Range Interpretation Comments RDW (test code = RDW) 18.4 11.5-14.5 [facility] CampusAhhuwbdXXDVUXFHNZ6802-50-52 06:21:00 Test Item Value Reference Range Interpretation Comments MCHC (test code = MCHC) 31.9 32.0-36.0 [facility] CampusVgqkgovUKGWMFDSIA5575-58-12 06:21:00 Test Item Value Reference Range Interpretation Comments MCH (test code = MCH) 24.2 pg 27.0-31.0 [facility] CampusXahwbejPSIWYZVCHB6478-15-62 06:21:00 Test Item Value Reference Range Interpretation Comments MCV (test code = MCV) 75.8 80.0-94.0 [facility] CampusHjmowleZUDCJOOGIX2964-60-21 06:21:00 Test Item Value Reference Range Interpretation Comments Hct (test code = Hct) 42.3 42.0-54.0 [facility] CampusKzfakcsZYXPNBYZQS9340-32-72 06:21:00 Test Item Value Reference Range Interpretation Comments Hgb (test code = Hgb) 13.5 14.0-18.0 [facility] CampusBhhigpzGTRRXRVJXQ5258-63-44 06:21:00 Test Item Value Reference Range Interpretation Comments RBC (test code = RBC) 5.58 4.70-6.10 [facility] CampusRenhreiZMMPGKGMQR6513-70-04 06:21:00 Test Item Value Reference Range Interpretation Comments WBC (test code = WBC) 11.3 3.7-10.4 [facility] CampusPdynxaqRSHVLVXZNB2394-02-19 06:21:00 Test Item Value Reference Range Interpretation Comments Platelet (test code = Platelet) 301 133-450 [facility] CampusIjceqfyCKCXZQZVBX4008-48-91 06:21:00 Test Item Value Reference Range Interpretation Comments MPV (test code = MPV) 8.5 7.4-10.4 [facility] CampusWeanaghFBTNRTPZFN4344-22-01 06:21:00 Test Item Value Reference Range Interpretation Comments Eosinophils # (test code 0.3 See_Comment [A utomated message] The = Eosinophils #) system whic h generated this result tra nsmitted reference range : <=0.5. The reference r matthieu was not used to int erpret this result as normal/abnormal . [facility] CampusVosiofdKHRLKSMBGY7915-28-82 06:21:00 Test Item Value Reference Range Interpretation Comments Basophils # (test code 0.1 See_Comment [Aut omated message] The = Basophils #) system which generated this result tra nsmitted reference range : <=0.2. The reference r matthieu was not used to int erpret this result as normal/abnormal . [facility] CampusFyphskpBTPKQMKLGJ1862-41-91 06:21:00 Test Item Value Reference Range Interpretation Comments Microcyte (test code = 1+ *ABN*(7/9/19 1:21 Microcyte) AM) [facility] CampusGjmacexYUOHESRMWL2732-85-26 06:21:00 Test Item Value Reference Range Interpretation Comments Monocytes # (test code 1.2 See_Comment [Aut omated message] The = Monocytes #) system which generated this result tra nsmitted reference range : <=0.8. The reference r matthieu was not used to int erpret this result as normal/abnormal . [facility] CampusCnfnwqkDYMJSGCLEK1873-51-29 06:21:00 Test Item Value Reference Range Interpretation Comments Eosinophils (test code = 2.9 See_Comment [A utomated message] The Eosinophils) system which ge nerated this result tra nsmitted reference range : <=4.0. The reference r matthieu was not used to int erpret this result as normal/abnormal . [facility] CampusVjdakczCKJKYVMUTZ5562-50-03 06:21:00 Test Item Value Reference Range Interpretation Comments Basophils (test code = 0.6 See_Comment [Aut omated message] The Basophils) system which ge nerated this result tra nsmitted reference range : <=1.0. The reference r matthieu was not used to int erpret this result as normal/abnormal . [facility] CampusAaqktbsHKQWQTNTGS3821-84-62 06:21:00 Test Item Value Reference Range Interpretation Comments Neutrophils # (test code = Neutrophils 7.3 1.5-8.1 #) [facility] CampusNyfwksnLJQXGZORWZ9624-23-95 06:21:00 Test Item Value Reference Range Interpretation Comments Lymphocytes # (test code = Lymphocytes 2.3 1.0-5.5 #) [facility] CampusXwjzlfkCFWTEIRQAS7623-65-92 06:21:00 Test Item Value Reference Range Interpretation Comments Monocytes (test code = Monocytes) 10.7 2.0-12.0 [facility] CampusNypubadHBVUYUGYNX5273-56-62 06:21:00 Test Item Value Reference Range Interpretation Comments Lymphocytes (test code = Lymphocytes) 20.6 20.0-40.0 [facility] CampusUrpwnklWRAECXYPAZ7165-81-44 06:21:00 Test Item Value Reference Range Interpretation Comments Segs (test code = Segs) 65.2 45.0-75.0 [facility]ieDhwimvmTGKNVX9209-01-68 06:21:00 Test Item Value Reference Range Interpretation Comments CHD Risk (test code = CHD Risk) 4.53 1 4.00-7.30 [place] 726049-07-09 06:21:00 Test Item Value Reference Range Interpretation Comments Chol (test code = Chol) 154 [facility] SouthXotxsncFSMXJV9431-21-65 06:21:00 Test Item Value Reference Range Interpretation Comments Trig (test code = Trig) 190 [facility]ieZarqhgzPTDVQJ7045-42-56 06:21:00 Test Item Value Reference Range Interpretation Comments VLDL (test code = VLDL) 38 1 [facility] SouthRgszthzCMPPPP5102-31-48 06:21:00 Test Item Value Reference Range Interpretation Comments HDL (test code = HDL) 34 [facility] SouthHixdixoESGYYD9165-10-72 06:21:00 Test Item Value Reference Range Interpretation Comments LDL (Calculated) (test code = LDL 82 (Calculated)) [facility] SZUVRXUVU3112-60-80 06:21:00 Test Item Value Reference Range Interpretation Comments Hgb A1C (test code = Hgb A1C) 6.6 [facility] SouthMedisync Bioservices [id number] 06:16:00 Test Item Value Reference Range Interpretation Comments ALT (test code = ALT) 27 See_Comment [Auto mated message] The system which ge nerated this result transmit yanely reference range : <=65. The reference range was not used to interpr et this result as brielle l/abnormal. [facility] ResourcesUDes[facility] Technologies [id number] 06:16:00 Test Item Value Reference Range Interpretation Comments AST (test code = AST) 13 See_Comment [Auto mated message] The system which ge nerated this result transmit yanely reference range : <=37. The reference range was not used to interpr et this result as brielle l/abnormal. [facility] ResourcesUDes[facility] Technologies [id number] 06:16:00 Test Item Value Reference Range Interpretation Comments Bili Direct (test code 0.1 See_Comment [Aut omated message] The = Bili Direct) system which generated this result tra nsmitted reference range : <=0.3. The reference r matthieu was not used to int erpret this result as brielle l/abnormal. [facility] [id number] 06:16:00 Test Item Value Reference Range Interpretation Comments Total Protein (test code = Total 7.5 6.4-8.4 Protein) [facility] [id number] 06:16:00 Test Item Value Reference Range Interpretation Comments Globulin (test code = Globulin) 4.2 2.7-4.2 [facility]2019-07-09 06:16:00 Test Item Value Reference Range Interpretation Comments A/G Ratio (test code = A/G Ratio) 0.8 1 0.7-1.6 [facility]2019-07-09 06:16:00 Test Item Value Reference Range Interpretation Comments Albumin Lvl (test code = Albumin Lvl) 3.3 3.5-5.0 [facility]2019-07-09 06:16:00 Test Item Value Reference Range Interpretation Comments Alk Phos (test code = Alk Phos) 98 39-136 [facility]2019-07-09 06:16:00 Test Item Value Reference Range Interpretation Comments Bili Total (test code = Bili Total) 1.0 0.2-1.3 [facility]2019-07-09 06:16:00 Test Item Value Reference Range Interpretation Comments Bili Indirect (test 0.9 See_Comment [Automa yanely message] The code = Bili Indirect) system which generated this result tra nsmitted reference range : <=1.0. The reference r matthieu was not used to int erpret this result as normal/abnormal . [facility] CampusUsgvaqcLXQHQHVNTF6146-74-09 06:15:00 Test Item Value Reference Range Interpretation Comments PTT (test code = PTT) 32.1 s 22.9-35.8 [facility] CampusXhhbortMTKECNMHRV7916-56-19 06:15:00 Test Item Value Reference Range Interpretation Comments INR (test code = INR) 0.98 1 0.85-1.17 [facility] CampusQbytnucBINCZBIFRF9070-35-91 06:15:00 Test Item Value Reference Range Interpretation Comments PT (test code = PT) 12.8 s 12.0-14.7 [facility] [id number] 05:50:00 Test Item Value Reference Range Interpretation Comments UA Ketones (test code = UA Ketones) Negative [facility] AND [id number] 05:50:00 Test Item Value Reference Range Interpretation Comments UA Urobilinogen (test code = UA <=1.0 mg/dL 0.1-1.0 Urobilinogen) [facility] [id number] 05:50:00 Test Item Value Reference Range Interpretation Comments UA Sq Epi (test code = UA Sq Epi) None Seen [facility] [id number] 05:50:00 Test Item Value Reference Range Interpretation Comments UA RBC (test code = 1 See_Comment [Automa yanely message] The UA RBC) system which ge nerated this result transmit aynely reference range : <=2. The reference range was not used to interpr et this result as brielle l/abnormal. [facility] AND [id number] 05:50:00 Test Item Value Reference Range Interpretation Comments UA WBC (test code = 1 See_Comment [Automa yanely message] The UA WBC) system which ge nerated this result transmit yanely reference range : <=5. The reference range was not used to interpr et this result as brielle l/abnormal. [facility] [id number] 05:50:00 Test Item Value Reference Range Interpretation Comments UA Color (test code = Light Yellow UA Color) *NA*(09/24/18 12:50 AM) [facility] [id number] 05:50:00 Test Item Value Reference Range Interpretation Comments UA Spec Grav (test code = UA Spec 1.019 1 Grav) [facility] [id number] 05:50:00 Test Item Value Reference Range Interpretation Comments UA Protein (test code = UA Negative mg/dL Protein) [facility] [id number] 05:50:00 Test Item Value Reference Range Interpretation Comments UA pH (test code = UA pH) 8.0 1 5.0-8.0 [facility] [id number] 05:50:00 Test Item Value Reference Range Interpretation Comments UA Amorph Danyelle (test code = Occasional /HPF UA Amorph Danyelle) [facility] [id number] 05:50:00 Test Item Value Reference Range Interpretation Comments UA Bili (test code = Negative *NA*(09/24/18 UA Bili) 12:50 AM) [facility] [id number] 05:50:00 Test Item Value Reference Range Interpretation Comments UA Blood (test code = Negative (09/24/18 12:50 UA Blood) AM) [facility] [id number] 05:50:00 Test Item Value Reference Range Interpretation Comments UA Glucose (test code = UA Negative mg/dL Glucose) [facility] [id number] 05:50:00 Test Item Value Reference Range Interpretation Comments UA Leuk Est (test Negative (09/24/18 12:50 code = UA Leuk Est) AM) [facility] [id number] 05:50:00 Test Item Value Reference Range Interpretation Comments UA Nitrite (test code Negative (09/24/18 12:50 = UA Nitrite) AM) [facility] AND [id number] 05:50:00 Test Item Value Reference Range Interpretation Comments UA Turbidity (test code = Clear (09/24/18 12:50 UA Turbidity) AM) [facility] [id number] 06:57:00 Test Item Value Reference Range Interpretation Comments POC-GLUCOSE METER 117 mg/dL 70-110 H TESTED AT [place] [address] ([facility]) (test code = ALIAFRANCISCA Benson [facility] 1538) [address] POCT-GLUCOSE [id number] 16:25:00 Test Item Value Reference Range Interpretation Comments POC-GLUCOSE METER 88 mg/dL 70-110 TESTED AT [place] [address] ([facility]) (test code = [facility] [address] 1538) POCT-GLUCOSE [id number] 06:12:00 Test Item Value Reference Range Interpretation Comments POC-GLUCOSE METER 91 mg/dL 70-110 TESTED AT [place] [address] ([facility]) (test code = [facility] Marcelino [facility] [address] 1538) POCT-GLUCOSE [id number] 16:29:00 Test Item Value Reference Range Interpretation Comments POC-GLUCOSE METER 94 mg/dL 70-110 TESTED AT [place] [address] ([facility]) (test code = ALIAOK Marcelino [facility] [address] 1538) POCT-GLUCOSE [id number] 06:27:00 Test Item Value Reference Range Interpretation Comments POC-GLUCOSE METER 90 mg/dL 70-110 TESTED AT [place] [address] ([facility]) (test code = ALIAOK Marcelino [facility] [address] 1538) POCT-GLUCOSE [id number] 16:45:00 Test Item Value Reference Range Interpretation Comments POC-GLUCOSE METER 88 mg/dL 70-110 TESTED AT [place] [address] ([facility]) (test code = [facility] [address] 1538) POCT-GLUCOSE [id number] 12:04:00 Test Item Value Reference Range Interpretation Comments POC-GLUCOSE METER 73 mg/dL 70-110 TESTED AT [facility] [facility] (test code = [facility] [address] 1538) POCT-GLUCOSE [id number] 06:53:00 Test Item Value Reference Range Interpretation Comments POC-GLUCOSE METER 112 mg/dL 70-110 H TESTED AT [place] [address] ([facility]) (test code = [facility] 1538) [address] POCT-GLUCOSE [id number] 17:08:00 Test Item Value Reference Range Interpretation Comments POC-GLUCOSE METER 96 mg/dL 70-110 TESTED AT [place] [address] ([facility]) (test code = [facility] [address] 1538) POCT-GLUCOSE [id number] 11:10:00 Test Item Value Reference Range Interpretation Comments POC-GLUCOSE METER 98 mg/dL 70-110 TESTED AT [place] [address] ([facility]) (test code = [facility] [address] 1538) BASIC METABOLIC [id number] 07:10:00 Test Item Value Reference Range Interpretation [...] PATIEN TS. CBC W/PLT COUNT & AUTO [id number] 06:30:00 Test Item Value Reference Range Interpretation [...] IMMATURE GRANULOCYTES-RELATIVE 1 % 0-1 PERCENT ([facility]) (test code = 2801) POCT-GLUCOSE [id number] 06:11:00 Test Item Value Reference Range Interpretation Comments POC-GLUCOSE METER 110 mg/dL 70-110 TESTED AT [place] [address] ([facility]) (test code = DELVIN Benson [place] 1538) [address] POCT-GLUCOSE [id number] 20:08:00 Test Item Value Reference Range Interpretation Comments POC-GLUCOSE METER 139 mg/dL 70-110 H TESTED AT [place] [address] ([facility]) (test code = DELVIN Benson [place] 1538) [address] POCT-GLUCOSE [id number] 16:17:00 Test Item Value Reference Range Interpretation Comments POC-GLUCOSE METER 96 mg/dL 70-110 TESTED AT [place] [address] ([facility]) (test code = [place] [address] 1538) POCT-GLUCOSE [id number] 11:28:00 Test Item Value Reference Range Interpretation Comments POC-GLUCOSE METER 78 mg/dL 70-110 TESTED AT [place] [address] ([facility]) (test code = [place] [address] 1538) POCT-GLUCOSE [id number] 06:24:00 Test Item Value Reference Range Interpretation Comments POC-GLUCOSE METER 94 mg/dL 70-110 TESTED AT [place] [address] ([facility]) (test code = [place] [address] 1538) POCT-GLUCOSE [id number] 20:50:00 Test Item Value Reference Range Interpretation Comments POC-GLUCOSE METER 121 mg/dL 70-110 H TESTED AT [place] [address] ([facility]) (test code = DELVIN [place] 1538) [address] POCT-GLUCOSE [id number] 16:08:00 Test Item Value Reference Range Interpretation Comments POC-GLUCOSE METER 80 mg/dL 70-110 TESTED AT [place] [address] ([facility]) (test code = [place] [address] 1538) POCT-GLUCOSE [id number] 11:19:00 Test Item Value Reference Range Interpretation Comments POC-GLUCOSE METER 143 mg/dL 70-110 H TESTED AT [place] [address] ([facility]) (test code = DEL[place] 1538) [address] POCT-GLUCOSE [id number] 06:44:00 Test Item Value Reference Range Interpretation Comments POC-GLUCOSE METER 101 mg/dL 70-110 TESTED AT [place] [address] ([facility]) (test code = DEL[place] 1538) [address] POCT-GLUCOSE [id number] 20:50:00 Test Item Value Reference Range Interpretation Comments POC-GLUCOSE METER 108 mg/dL 70-110 TESTED AT [place] [address] ([facility]) (test code = [place] 1538) [address] POCT-GLUCOSE [id number] 17:05:00 Test Item Value Reference Range Interpretation Comments POC-GLUCOSE METER 74 mg/dL 70-110 TESTED AT [place] [address] ([facility]) (test code = DELVIN Benson [facility] [address] 1538) POCT-GLUCOSE [id number] 11:51:00 Test Item Value Reference Range Interpretation Comments POC-GLUCOSE METER 106 mg/dL 70-110 TESTED AT [place] [address] ([facility]) (test code = DELVIN Benson [facility] 1538) [address] POCT-GLUCOSE [id number] 06:56:00 Test Item Value Reference Range Interpretation Comments POC-GLUCOSE METER 95 mg/dL 70-110 TESTED AT [place] [address] ([facility]) (test code = DELVIN Benson [facility] [address] 1538) POCT-GLUCOSE [id number] 21:23:00 Test Item Value Reference Range Interpretation Comments POC-GLUCOSE METER 96 mg/dL 70-110 TESTED AT [place] [address] ([facility]) (test code = DELVIN Benson [facility] [address] 1538) POCT-GLUCOSE [id number] 16:26:00 Test Item Value Reference Range Interpretation Comments POC-GLUCOSE METER 96 mg/dL 70-110 TESTED AT [place] [address] ([facility]) (test code = DELVIN Benson [facility] [address] 1538) POCT-GLUCOSE [id number] 11:56:00 Test Item Value Reference Range Interpretation Comments POC-GLUCOSE METER 132 mg/dL 70-110 H TESTED AT [place] [address] ([facility]) (test code = DELVIN Benson [facility] 1538) [address] POCT-GLUCOSE [id number] 06:35:00 Test Item Value Reference Range Interpretation Comments POC-GLUCOSE METER 97 mg/dL 70-110 TESTED AT [place] [address] ([facility]) (test code = DELVIN Benson [facility] [address] 1538) POCT-GLUCOSE [id number] 21:10:00 Test Item Value Reference Range Interpretation Comments POC-GLUCOSE METER 121 mg/dL 70-110 H TESTED AT [place] [address] ([facility]) (test code = [facility] 1538) [address] POCT-GLUCOSE [id number] 16:51:00 Test Item Value Reference Range Interpretation Comments POC-GLUCOSE METER 126 mg/dL 70-110 H TESTED AT [place] [address] ([facility]) (test code = [facility] Marcelino [facility] 1538) [address] POCT-GLUCOSE [id number] 11:20:00 Test Item Value Reference Range Interpretation Comments POC-GLUCOSE METER 109 mg/dL 70-110 TESTED AT [place] [address] ([facility]) (test code = [facility] Marcelino [facility] 1538) [address] POCT-GLUCOSE [id number] 06:57:00 Test Item Value Reference Range Interpretation Comments POC-GLUCOSE METER 167 mg/dL 70-110 H TESTED AT [place] [address] ([facility]) (test code = [facility] Marcelino [facility] 1538) [address] PROTHROMBIN [id number] 06:49:00 Test Item Value Reference Range Interpretation Comments PROTIME (BEAKER) (test code = 12.5 seconds 11.9-14.2 759) INR (BEAKER) (test code = 370) 1.0 <=5.9 RECOMMENDED COUMADIN/WARFARIN INR THERAPY RANGESSTANDARD DOSE: 2.0 - 3.0 Includes: PROPHYLAXIS for venous thrombosis, systemic embolization; TREATMENT for venous thrombosis and/or pulmonary embolus.HIGH RISK: Target INR is 2.5-3.5 for patients with mechanical heart valves.BASIC METABOLIC [id number] 06:49:00 Test Item Value Reference Range Interpretation [...] PATIEN TS. CBC W/PLT COUNT & AUTO [id number] 06:33:00 Test Item Value Reference Range Interpretation [...] 417) IMMATURE GRANULOCYTES-RELATIVE 1 % 0-1 PERCENT (AKER) (test code = 2801) POCT-GLUCOSE [id number] 21:27:00 Test Item Value Reference Range Interpretation Comments POC-GLUCOSE METER 129 mg/dL 70-110 H TESTED AT [place] [address] ([facility]) (test code = DELVIN Benson [facility] 1538) [address] POCT-GLUCOSE [id number] 17:18:00 Test Item Value Reference Range Interpretation Comments POC-GLUCOSE METER 108 mg/dL 70-110 TESTED AT [place] [address] ([facility]) (test code = DELVIN Benson [facility] 1538) [address] POCT-GLUCOSE [id number] 11:54:00 Test Item Value Reference Range Interpretation Comments POC-GLUCOSE METER 107 mg/dL 70-110 TESTED AT [place] [address] ([facility]) (test code = DELVIN Benson [facility] 1538) [id number] POCT-GLUCOSE [id number] 11:54:00 Test Item Value Reference Range Interpretation Comments POC-GLUCOSE METER 63 mg/dL 70-110 L Will Repea t Test/TESTED ([facility]) (test code = AT [address] 1538) [facility] 7[address] 0 POCT-GLUCOSE [id number] 20:58:00 Test Item Value Reference Range Interpretation Comments POC-GLUCOSE METER 97 mg/dL 70-110 TESTED AT [place] [address] ([facility]) (test code = DELVIN eBnson [facility] [address] 1538) POCT-GLUCOSE [id number] 13:08:00 Test Item Value Reference Range Interpretation Comments POC-GLUCOSE METER 110 mg/dL 70-110 TESTED AT [facility] 6720 (BEAKER) (test code = DELV[place] 1538) [id number] [id number] 07:12:00 Test Item Value Reference Range Interpretation Comments MAGNESIUM (BEAKER) (test code = 2.2 mg/dL 1.6-2.6 627) BASIC METABOLIC [id number] 07:12:00 Test Item Value Reference Range Interpretation [...] PATIEN TS. CBC W/PLT COUNT & AUTO [id number] 06:50:00 Test Item Value Reference Range Interpretation [...] (BEAKER) (test code = 2801) RAD, SHUNT [id number] 16:15:00Reason for exam:->Hydrocephalus on CT FINAL REPORT [...] MDReport Verified Date/Time: 08/10/2018 16:15:10 Reading Location: [facility] B1 C013Y CT Body Reading Room [id number] 06:49:00 Test Item Value Reference Range Interpretation Comments MAGNESIUM (BEAKER) (test code = 2.0 mg/dL 1.6-2.6 627) BASIC METABOLIC [id number] 06:49:00 Test Item Value Reference Range Interpretation [...] PATIEN TS. CBC W/PLT COUNT & AUTO [id number] 06:17:00 Test Item Value Reference Range Interpretation [...] PERCENT (BEAKER) (test code = 2801) POCT-GLUCOSE [id number] 18:47:00 Test Item Value Reference Range Interpretation Comments POC-GLUCOSE METER 86 mg/dL 70-110 TESTED AT [facility] 6720 (BEAKER) (test code = [place] [id number] 1538) [id number] 13:23:00 Test Item Value Reference Range Interpretation Comments RPR SCREEN (INDER) (test code = Nonreactive Nonreactive 420) POCT-GLUCOSE [id number] 12:36:00 Test Item Value Reference Range Interpretation Comments POC-GLUCOSE METER 101 mg/dL 70-110 TESTED AT [facility] 6720 (INDER) (test code = DELVIN [place] 1538) [address] MR, BRAIN, WITHOUT [id number] 12:20:00Reason for exam:->StrokeWhat is the patient's sedation [...] MDReport Verified Date/Time: 08/09/2018 12:20:16 Reading Location: [address] Neuro Reading Room TSH/FREE T4 IF [id number] 09:53:00 Test Item Value Reference Range Interpretation Comments THYROID STIMULATING HORMONE 1.28 uIU/mL 0.35-4.94 (INDER) (test code = 772) POCT-GLUCOSE [id number] 08:34:00 Test Item Value Reference Range Interpretation Comments POC-GLUCOSE METER 99 mg/dL 70-110 TESTED AT [facility] 6720 (BEAKER) (test code = [place] [address] 1538) BASIC METABOLIC [id number] 06:09:00 Test Item Value Reference Range Interpretation [...] S NOT APPLICABLE FOR DIALYSIS PATIEN TS. [id number] 06:05:00 Test Item Value Reference Range Interpretation Comments MAGNESIUM (BEAKER) 2.0 mg/dL 1.6-2.6 Specimen slightly (test code = 627) hemolyzed FastingLIPID [id number] 06:05:00 Test Item Value Reference Range Interpretation [...] High >=190 FastingCBC W/PLT COUNT & AUTO [id number] 05:51:00 Test Item Value Reference Range Interpretation [...] PERCENT (BEAKER) (test code = 2801) POCT-GLUCOSE [id number] 21:49:00 Test Item Value Reference Range Interpretation Comments POC-GLUCOSE METER 92 mg/dL 70-110 TESTED AT [facility] 6720 (BEAKER) (test code = DELVIN Benson [facility] [address] 1538) HEMOGLOBIN [id number] 21:38:00 Test Item Value Reference Range Interpretation Comments HEMOGLOBIN A1C (BEAKER) (test code = 6.3 % 4.3-6.1 H 368) VITAMIN B12 AND [id number] 19:26:00 Test Item Value Reference Range Interpretation Comments VITAMIN B12 (BEAKER) (test code = 306 pg/mL 213-816 774) FOLATE (BEAKER) (test code = 362) 14.3 ng/mL >=7.0 TROPONIN [id number] 18:58:00 Test Item Value Reference Range Interpretation [...] acute neurological disease, and persistent tachyarrhythmia.BASIC METABOLIC [id number] 18:53:00 Test Item Value Reference Range Interpretation [...] APPLICABLE FOR DIALYSIS PATIEN TS. HEPATIC FUNCTION [id number] 18:51:00 Test Item Value Reference Range Interpretation [...] code = 35 U/L 6-55 347) PROTHROMBIN [id number] 18:46:00 Test Item Value Reference Range Interpretation [...] mechanical heart valves.CBC W/PLT COUNT & AUTO [id number] 18:39:00 Test Item Value Reference Range Interpretation [...] PERCENT (BEAKER) (test code = 2801) POCT-GLUCOSE [id number] 18:04:00 Test Item Value Reference Range Interpretation Comments POC-GLUCOSE METER 125 mg/dL 70-110 H TESTED AT [facility] 6720 (INDER) (test code = DELV[place] 1538) [address] CHEM [id number] 09:08:00 Test Item Value Reference Range Interpretation Comments Phosphorus (test code = Phosphorus) 3.8 2.5-4.5 [facility]2019-05-19 09:08:00 Test Item Value Reference Range Interpretation Comments Lactic Acid Lvl (test code = Lactic 0.8 0.5-2.2 Acid Lvl) [facility]2019-05-19 09:08:00 Test Item Value Reference Range Interpretation Comments Globulin (test code = Globulin) 4.7 2.7-4.2 [facility]2019-05-19 09:08:00 Test Item Value Reference Range Interpretation Comments AGAP (test code = AGAP) 8.3 10.0-20.0 [facility]2019-05-19 09:08:00 Test Item Value Reference Range Interpretation Comments B/C Ratio (test code = B/C Ratio) 18 1 6-25 [facility]2019-05-19 09:08:00 Test Item Value Reference Range Interpretation Comments A/G Ratio (test code = A/G Ratio) 0.7 1 0.7-1.6 [facility]2019-05-19 09:08:00 Test Item Value Reference Range Interpretation Comments eGFR (test code = eGFR) 119 [facility]2019-05-19 09:08:00 Test Item Value Reference Range Interpretation Comments Chloride Lvl (test code = Chloride Lvl) 108 95-109 [facility]2019-05-19 09:08:00 Test Item Value Reference Range Interpretation Comments Total Protein (test code = Total 8.0 6.4-8.4 Protein) [facility]2019-05-19 09:08:00 Test Item Value Reference Range Interpretation Comments CO2 (test code = CO2) 28 24-32 [facility]2019-05-19 09:08:00 Test Item Value Reference Range Interpretation Comments Calcium Lvl (test code = Calcium Lvl) 8.3 8.5-10.5 [facility]2019-05-19 09:08:00 Test Item Value Reference Range Interpretation Comments Bili Total (test code = Bili Total) 0.5 0.2-1.3 [facility]2019-05-19 09:08:00 Test Item Value Reference Range Interpretation Comments Albumin Lvl (test code = Albumin Lvl) 3.3 3.5-5.0 [place] 400779-05-19 09:08:00 Test Item Value Reference Range Interpretation Comments ALT (test code = ALT) 37 See_Comment [Auto mated message] The system which ge nerated this result transmit yanely reference range : <=65. The reference range was not used to interpr et this result as brielle l/abnormal. [facility]2019-05-19 09:08:00 Test Item Value Reference Range Interpretation Comments Alk Phos (test code = Alk Phos) 96 39-136 [facility]2019-05-19 09:08:00 Test Item Value Reference Range Interpretation Comments AST (test code = AST) 33 See_Comment [Auto mated message] The system which ge nerated this result transmit yanely reference range : <=37. The reference range was not used to interpr et this result as brielle l/abnormal. [facility]2019-05-19 09:08:00 Test Item Value Reference Range Interpretation Comments Glucose Lvl (test code = Glucose Lvl) 98 70-99 [facility]2019-05-19 09:08:00 Test Item Value Reference Range Interpretation Comments BUN (test code = BUN) 11 7-22 [place] 400779-05-19 09:08:00 Test Item Value Reference Range Interpretation Comments Potassium Lvl (test code = Potassium 4.3 3.5-5.1 Lvl) [facility]2019-05-19 09:08:00 Test Item Value Reference Range Interpretation Comments Sodium Lvl (test code = Sodium Lvl) 140 135-145 [facility]2019-05-19 09:08:00 Test Item Value Reference Range Interpretation Comments Creatinine Lvl (test code = Creatinine 0.62 0.50-1.40 Lvl) [facility]2019-05-19 09:08:00 Test Item Value Reference Range Interpretation Comments Ammonia (test code = Ammonia) 67.0 [place] 400779-05-19 09:08:00 Test Item Value Reference Range Interpretation Comments Procalcitonin Lvl (test 0.05 See_Comment [Au tomated message] code = Procalcitonin Lvl) Th e system which generated this result transmitted ref erence range: <=0.10. The reference range was not used to interpr et this result as normal/abnormal . [facility]2019-05-19 09:08:00 Test Item Value Reference Range Interpretation Comments Magnesium Lvl (test code = Magnesium 2.2 1.8-2.4 Lvl) [facility] [id number] 09:08:00 Test Item Value Reference Range Interpretation Comments MCV (test code = MCV) 76.1 80.0-94.0 [facility] C[id number] 09:08:00 Test Item Value Reference Range Interpretation Comments Hct (test code = Hct) 44.7 42.0-54.0 [facility] CampusJpbkwyxNTJYFXFBSS2892-01-42 09:08:00 Test Item Value Reference Range Interpretation Comments Hgb (test code = Hgb) 14.3 14.0-18.0 [facility] CampusLnttnffMHPETGOIHV8999-71-89 09:08:00 Test Item Value Reference Range Interpretation Comments RDW (test code = RDW) 17.2 11.5-14.5 [facility] CampusPzyzgubCVICFKHSYV6227-31-01 09:08:00 Test Item Value Reference Range Interpretation Comments Platelet (test code = Platelet) 284 133-450 [facility] CampusGnsyumyPJGKLZDXKM3755-19-13 09:08:00 Test Item Value Reference Range Interpretation Comments MCH (test code = MCH) 24.2 pg 27.0-31.0 [facility] Camp[id number] 09:08:00 Test Item Value Reference Range Interpretation Comments MCHC (test code = MCHC) 31.9 32.0-36.0 [facility] CampusIsqwpcqCESHDFUSOW6970-97-15 09:08:00 Test Item Value Reference Range Interpretation Comments MPV (test code = MPV) 8.3 7.4-10.4 [facility] Camp[id number] 09:08:00 Test Item Value Reference Range Interpretation Comments RBC (test code = RBC) 5.88 4.70-6.10 [facility] CampusKdqhorpZLZGXWYAQW1657-49-00 09:08:00 Test Item Value Reference Range Interpretation Comments WBC (test code = WBC) 10.4 3.7-10.4 [facility]2019-05-19 09:08:00 Test Item Value Reference Range Interpretation Comments Ca Ion WB (test code = Ca Ion WB) 1.10 1.05-1.25 [facility] [id number] 09:08:00 Test Item Value Reference Range Interpretation Comments Ca Norm WB (test code = Ca Norm WB) 1.07 1.05-1.25 [facility]2019-05-18 10:47:00 Test Item Value Reference Range Interpretation Comments Phosphorus (test code = Phosphorus) 3.4 2.5-4.5 [facility]2019-05-18 10:47:00 Test Item Value Reference Range Interpretation Comments eGFR (test code = eGFR) 120 [facility]2019-05-18 10:47:00 Test Item Value Reference Range Interpretation Comments Bili Total (test code = Bili Total) 0.5 0.2-1.3 [facility]2019-05-18 10:47:00 Test Item Value Reference Range Interpretation Comments Total Protein (test code = Total 7.9 6.4-8.4 Protein) [facility]2019-05-18 10:47:00 Test Item Value Reference Range Interpretation Comments ALT (test code = ALT) 37 See_Comment [Auto mated message] The system which ge nerated this result transmit yanely reference range : <=65. The reference range was not used to interpr et this result as brielle l/abnormal. [facility]2019-05-18 10:47:00 Test Item Value Reference Range Interpretation Comments Albumin Lvl (test code = Albumin Lvl) 3.3 3.5-5.0 [facility]2019-05-18 10:47:00 Test Item Value Reference Range Interpretation Comments Alk Phos (test code = Alk Phos) 100 39-136 [facility]2019-05-18 10:47:00 Test Item Value Reference Range Interpretation Comments AST (test code = AST) 27 See_Comment [Auto mated message] The system which ge nerated this result transmit yanely reference range : <=37. The reference range was not used to interpr et this result as brielle l/abnormal. [facility]2019-05-18 10:47:00 Test Item Value Reference Range Interpretation Comments Chloride Lvl (test code = Chloride Lvl) 107 95-109 [facility]2019-05-18 10:47:00 Test Item Value Reference Range Interpretation Comments CO2 (test code = CO2) 28 24-32 [facility]2019-05-18 10:47:00 Test Item Value Reference Range Interpretation Comments Potassium Lvl (test code = Potassium 4.4 3.5-5.1 Lvl) [facility]2019-05-18 10:47:00 Test Item Value Reference Range Interpretation Comments Calcium Lvl (test code = Calcium Lvl) 8.8 8.5-10.5 [facility]2019-05-18 10:47:00 Test Item Value Reference Range Interpretation Comments Sodium Lvl (test code = Sodium Lvl) 141 135-145 [facility]2019-05-18 10:47:00 Test Item Value Reference Range Interpretation Comments Creatinine Lvl (test code = Creatinine 0.61 0.50-1.40 Lvl) [facility]2019-05-18 10:47:00 Test Item Value Reference Range Interpretation Comments BUN (test code = BUN) 9 7-22 [facility]2019-05-18 10:47:00 Test Item Value Reference Range Interpretation Comments Glucose Lvl (test code = Glucose Lvl) 105 70-99 [facility]2019-05-18 10:47:00 Test Item Value Reference Range Interpretation Comments B/C Ratio (test code = B/C Ratio) 15 1 6-25 [facility]2019-05-18 10:47:00 Test Item Value Reference Range Interpretation Comments AGAP (test code = AGAP) 10.4 10.0-20.0 [facility]2019-05-18 10:47:00 Test Item Value Reference Range Interpretation Comments Globulin (test code = Globulin) 4.6 2.7-4.2 [facility]2019-05-18 10:47:00 Test Item Value Reference Range Interpretation Comments A/G Ratio (test code = A/G Ratio) 0.7 1 0.7-1.6 [facility]2019-05-18 10:47:00 Test Item Value Reference Range Interpretation Comments Magnesium Lvl (test code = Magnesium 2.2 1.8-2.4 Lvl) [facility] CampusGulclbzFXDHDYRXWS7716-04-92 10:47:00 Test Item Value Reference Range Interpretation Comments Microcyte (test code = 1+ *ABN*(08/03/18 Microcyte) 5:47 AM) [facility] CampusTvnsdopMITKGTEYSK9651-83-49 10:47:00 Test Item Value Reference Range Interpretation Comments Monocytes # (test code 1.0 See_Comment [Aut omated message] The = Monocytes #) system which generated this result tra nsmitted reference range : <=0.8. The reference r matthieu was not used to int erpret this result as normal/abnormal . [facility] CampusHitommtGQKAITHMEO4821-74-50 10:47:00 Test Item Value Reference Range Interpretation Comments Lymphocytes # (test code = Lymphocytes 2.9 1.0-5.5 #) [facility] CampusWgboohtVLNAPXLZYT5952-18-15 10:47:00 Test Item Value Reference Range Interpretation Comments Basophils # (test code 0.1 See_Comment [Aut omated message] The = Basophils #) system which generated this result tra nsmitted reference range : <=0.2. The reference r matthieu was not used to int erpret this result as normal/abnormal . [facility] CampusBkuqvoqZOLKVUVSKQ6295-57-70 10:47:00 Test Item Value Reference Range Interpretation Comments Eosinophils # (test code 0.3 See_Comment [A utomated message] The = Eosinophils #) system whic h generated this result tra nsmitted reference range : <=0.5. The reference r matthieu was not used to int erpret this result as normal/abnormal . [facility] Camp[id number] 10:47:00 Test Item Value Reference Range Interpretation Comments Eosinophils (test code = 3.1 See_Comment [A utomated message] The Eosinophils) system which ge nerated this result tra nsmitted reference range : <=4.0. The reference r matthieu was not used to int erpret this result as normal/abnormal . [facility] CampusFbfhxyiFBJGYPAANY5040-85-24 10:47:00 Test Item Value Reference Range Interpretation Comments Monocytes (test code = Monocytes) 9.0 2.0-12.0 [facility] CampusXfplvfsEMKHXLQLGQ9688-74-80 10:47:00 Test Item Value Reference Range Interpretation Comments Basophils (test code = 0.9 See_Comment [Aut omated message] The Basophils) system which ge nerated this result tra nsmitted reference range : <=1.0. The reference r matthieu was not used to int erpret this result as normal/abnormal . [facility] CampusUenjgqlWFPXXFIUWO3912-59-11 10:47:00 Test Item Value Reference Range Interpretation Comments Neutrophils # (test code = Neutrophils 6.8 1.5-8.1 #) [facility] CampusNisauxnRYFCUEIRIT9250-83-15 10:47:00 Test Item Value Reference Range Interpretation Comments Segs (test code = Segs) 61.2 45.0-75.0 [facility] CampusJxdvccyYNIKENJRHO2687-37-08 10:47:00 Test Item Value Reference Range Interpretation Comments Lymphocytes (test code = Lymphocytes) 25.8 20.0-40.0 [facility] CampusNooimyzEHPNPWQDBG8186-21-07 10:47:00 Test Item Value Reference Range Interpretation Comments MPV (test code = MPV) 8.4 7.4-10.4 [facility] CampusGrdnxriDNWQWGKXTO2803-90-01 10:47:00 Test Item Value Reference Range Interpretation Comments MCHC (test code = MCHC) 31.9 32.0-36.0 [facility] CampusPfxhybdIUFPOKBBIC5886-22-24 10:47:00 Test Item Value Reference Range Interpretation Comments RDW (test code = RDW) 17.3 11.5-14.5 [facility] CampusIpdblirXCGQAXJJUO5027-22-50 10:47:00 Test Item Value Reference Range Interpretation Comments Hct (test code = Hct) 43.0 42.0-54.0 [facility] CampusBugljzoSCQQEWSJVH2518-84-96 10:47:00 Test Item Value Reference Range Interpretation Comments MCH (test code = MCH) 24.3 pg 27.0-31.0 [facility] CampusTkwegwsNSFQLYZVSZ9689-22-76 10:47:00 Test Item Value Reference Range Interpretation Comments MCV (test code = MCV) 76.3 80.0-94.0 [facility] CampusNfrjoltZFWLMRPPXQ7524-70-33 10:47:00 Test Item Value Reference Range Interpretation Comments RBC (test code = RBC) 5.64 4.70-6.10 [facility] CampusAfuoyuhPCUHIUHQPI0089-75-71 10:47:00 Test Item Value Reference Range Interpretation Comments WBC (test code = WBC) 11.1 3.7-10.4 [facility] ShtnmeuFXIANBJPWS7901-00-13 10:47:00 Test Item Value Reference Range Interpretation Comments Hgb (test code = Hgb) 13.7 14.0-18.0 [facility] IyhevgdTWXGYXGXKT2782-92-26 10:47:00 Test Item Value Reference Range Interpretation Comments Platelet (test code = Platelet) 287 133-450 [facility] GxhnqmsPRVGHP3698-57-19 10:47:00 Test Item Value Reference Range Interpretation Comments LDL (Calculated) (test code = LDL 78 (Calculated)) [facility] OrdypyhPNJJFB9686-54-00 10:47:00 Test Item Value Reference Range Interpretation Comments VLDL (test code = VLDL) 26 1 [facility] GrzattnRQEKWN9209-84-26 10:47:00 Test Item Value Reference Range Interpretation Comments HDL (test code = HDL) 27 [facility] HydwwpxGVJMHB0223-21-50 10:47:00 Test Item Value Reference Range Interpretation Comments Trig (test code = Trig) 128 [facility] XfpqcnzEAQLEV7499-97-82 10:47:00 Test Item Value Reference Range Interpretation Comments Chol (test code = Chol) 131 [facility] MvgfndjRGIVXK1285-01-56 10:47:00 Test Item Value Reference Range Interpretation Comments CHD Risk (test code = CHD Risk) 4.85 1 4.00-7.30 [facility] [id number] 10:47:00 Test Item Value Reference Range Interpretation Comments Ca Norm WB (test code = Ca Norm WB) 1.08 1.05-1.25 [facility]PAR[facility]YRO[facility] VRLJAHI5178-07-91 10:47:00 Test Item Value Reference Range Interpretation Comments Ca Ion WB (test code = Ca Ion WB) 1.08 1.05-1.25 [facility] ResourcesannSPECIAL XXPJVIDQP9080-96-62 10:47:00 Test Item Value Reference Range Interpretation Comments Hgb A1C (test code = Hgb A1C) 6.1 [facility] [id number] 03:13:00 Test Item Value Reference Range Interpretation Comments U Cannab Scr (test Negative *NA*(08/02/18 code = U Cannab Scr) 10:13 PM) [facility] [id number] 03:13:00 Test Item Value Reference Range Interpretation Comments U Opiate Scr (test Negative *NA*(08/02/18 code = U Opiate Scr) 10:13 PM) [facility] [id number] 03:13:00 Test Item Value Reference Range Interpretation Comments UDS Note (test code = See Note (08/02/18 10:13 UDS Note) PM) [facility] [id number] 03:13:00 Test Item Value Reference Range Interpretation Comments U Phencyclidine Scr (test Negative code = U Phencyclidine *NA*(08/02/18 10:13 Scr) PM) [facility] [id number] 03:13:00 Test Item Value Reference Range Interpretation Comments U Benzodiaz Scr (test Negative *NA*(08/02/18 code = U Benzodiaz Scr) 10:13 PM) [facility] [id number] 03:13:00 Test Item Value Reference Range Interpretation Comments U Cocaine Scr (test Negative *NA*(08/02/18 code = U Cocaine Scr) 10:13 PM) [facility] [id number] 03:13:00 Test Item Value Reference Range Interpretation Comments U Stephanie Scr (test code Negative *NA*(08/02/18 = U Stephanie Scr) 10:13 PM) [facility] [id number] 03:13:00 Test Item Value Reference Range Interpretation Comments U Amph Scr (test code Negative *NA*(08/02/18 = U Amph Scr) 10:13 PM) [facility] [id number] 03:13:00 Test Item Value Reference Range Interpretation Comments UA Color (test code = Yellow *NA*(08/02/18 UA Color) 10:13 PM) [facility] [id number] 03:13:00 Test Item Value Reference Range Interpretation Comments UA Turbidity (test code = Clear (08/02/18 10:13 UA Turbidity) PM) [facility] [id number] 03:13:00 Test Item Value Reference Range Interpretation Comments UA Protein (test code Negative (08/02/18 10:13 = UA Protein) PM) [facility] [id number] 03:13:00 Test Item Value Reference Range Interpretation Comments UA Spec Grav (test code = UA Spec 1.010 1 Grav) [facility] [id number] 03:13:00 Test Item Value Reference Range Interpretation Comments UA Glucose (test code Negative (08/02/18 10:13 = UA Glucose) PM) [facility] AND [id number] 03:13:00 Test Item Value Reference Range Interpretation Comments UA pH (test code = UA pH) 6.0 1 5.0-8.0 [facility] AND [id number] 03:13:00 Test Item Value Reference Range Interpretation Comments UA Bili (test code = Negative *NA*(08/02/18 UA Bili) 10:13 PM) [facility] AND [id number] 03:13:00 Test Item Value Reference Range Interpretation Comments UA Blood (test code = Negative (08/02/18 10:13 UA Blood) PM) [facility] AND [id number] 03:13:00 Test Item Value Reference Range Interpretation Comments UA Ketones (test code Negative *NA*(08/02/18 = UA Ketones) 10:13 PM) [facility] AND [id number] 03:13:00 Test Item Value Reference Range Interpretation Comments UA WBC (test code = UA WBC) 0-2 /HPF [facility] AND [id number] 03:13:00 Test Item Value Reference Range Interpretation Comments UA Leuk Est (test Negative (08/02/18 10:13 code = UA Leuk Est) PM) [facility] AND [id number] 03:13:00 Test Item Value Reference Range Interpretation Comments UA Nitrite (test code Negative (08/02/18 10:13 = UA Nitrite) PM) [facility] AND [id number] 03:13:00 Test Item Value Reference Range Interpretation Comments UA Urobilinogen (test code = UA 1.0 0.1-1.0 Urobilinogen) [facility] AND [id number] 03:13:00 Test Item Value Reference Range Interpretation Comments UA Sq Epi (test code = UA Sq Occasional /LPF Epi) [facility] AND [id number] 03:13:00 Test Item Value Reference Range Interpretation Comments UA Bacteria (test code = UA Few /HPF Bacteria) [facility] AND [id number] 03:13:00 Test Item Value Reference Range Interpretation Comments UA RBC (test code = 0-2 /HPF See_Comment [Automa yanely message] The UA RBC) system which ge nerated this result tra nsmitted reference range : <=2. The reference range was not used to interpr et this result as brielle l/abnormal. [facility] [employer] BANK [id number] 23:08:00 Test Item Value Reference Range Interpretation Comments ABO/Rh (test code = ABO/Rh) O POS [facility] [id number] 23:08:00 Test Item Value Reference Range Interpretation Comments Antibody Scrn (test Negative (08/02/18 6:08 code = Antibody Scrn) PM) [facility]GfswcatYJKYAVFPTF1381-07-58 23:06:00 Test Item Value Reference Range Interpretation Comments [facility] HIV 4th GEN (test Negative *NA*(08/02/18 code = CDC HIV 4th 6:06 PM) GEN) [facility] [id number] 22:29:00 Test Item Value Reference Range Interpretation Comments Troponin-I (test code no gt See_Comment [Auto mated message] The = Troponin-I) system which g enerated this result transmit yanely reference range : <=0.40. The reference r matthieu was not used to interpr et this result as brielle l/abnormal. [facility] ResourcesJyvuwifEWCDMNCHVOJX6246-45-30 22:29:00 Test Item Value Reference Range Interpretation Comments AGAP (test code = AGAP) 9.3 10.0-20.0 [facility] ResourcesMygitfwFKQRZLHXQHGT9064-07-11 22:29:00 Test Item Value Reference Range Interpretation Comments eGFR (test code = eGFR) 113 [facility] ResourcesFebuwjmZOIRLWOUHRZJ0659-72-06 22:29:00 Test Item Value Reference Range Interpretation Comments Chloride Lvl (test code = Chloride Lvl) 105 95-109 [facility] ResourcesIzkzepvXLGGXLFRVJEW8654-90-40 22:29:00 Test Item Value Reference Range Interpretation Comments CO2 (test code = CO2) 31 24-32 [facility]PydfhjtTWNUHFXCEBCV8212-55-09 22:29:00 Test Item Value Reference Range Interpretation Comments Calcium Lvl (test code = Calcium Lvl) 8.9 8.5-10.5 [facility] ResourcesEhtuydeCNQKUNYSOBUW0280-68-87 22:29:00 Test Item Value Reference Range Interpretation Comments Potassium Lvl (test code = Potassium 4.3 3.5-5.1 Lvl) [facility]FPGSGQSWMKSH9011-22-63 22:29:00 Test Item Value Reference Range Interpretation Comments Creatinine Lvl (test code = Creatinine 0.71 0.50-1.40 Lvl) [facility]DcpkskgUGZTBRAGPXHE4621-80-54 22:29:00 Test Item Value Reference Range Interpretation Comments Sodium Lvl (test code = Sodium Lvl) 141 135-145 [facility] SystemNlhkjdsSZJRUPFZBNIT5364-93-74 22:29:00 Test Item Value Reference Range Interpretation Comments BUN (test code = BUN) 9 7-22 [facility]AejbfdoYOWVQETENKKR6161-53-50 22:29:00 Test Item Value Reference Range Interpretation Comments Glucose Lvl (test code = Glucose Lvl) 136 70-99 [facility] CampusEesemvmYCTPDBWPEL7471-31-78 22:29:00 Test Item Value Reference Range Interpretation Comments PT (test code = PT) 12.1 s 12.0-14.7 [place] [address]-05-17 22:29:00 Test Item Value Reference Range Interpretation Comments INR (test code = INR) 0.91 1 0.85-1.17 [facility] CampusPnhegtpONPMQEXGCY7821-31-98 22:29:00 Test Item Value Reference Range Interpretation Comments PTT (test code = PTT) 32.7 s 22.9-35.8 [facility] CampusGhxfymnIEMIVDWRLP0722-47-06 22:29:00 Test Item Value Reference Range Interpretation Comments Platelet (test code = Platelet) 247 133-450 [facility] CampusImrmwaqJSZBKWAPAP9922-21-19 22:29:00 Test Item Value Reference Range Interpretation Comments MPV (test code = MPV) 8.7 7.4-10.4 [place] [address]-05-17 22:29:00 Test Item Value Reference Range Interpretation Comments MCV (test code = MCV) 76.9 80.0-94.0 [facility] CampusBsyhmdtFGSJZYJGRC2504-91-36 22:29:00 Test Item Value Reference Range Interpretation Comments Hct (test code = Hct) 44.1 42.0-54.0 [facility] CampusQnioilxPDQXBPYLTV8337-20-42 22:29:00 Test Item Value Reference Range Interpretation Comments MCH (test code = MCH) 24.2 pg 27.0-31.0 [facility] CampusPhrsvlpZCSBSBPDZK7761-57-70 22:29:00 Test Item Value Reference Range Interpretation Comments RDW (test code = RDW) 17.5 11.5-14.5 [facility] CampusFfjbanoOLCYBYSTSC7420-81-55 22:29:00 Test Item Value Reference Range Interpretation Comments MCHC (test code = MCHC) 31.5 32.0-36.0 [facility] CampusDsrxgnvPSSGTADNNZ2191-57-74 22:29:00 Test Item Value Reference Range Interpretation Comments RBC (test code = RBC) 5.73 4.70-6.10 [facility] CampusLiuixhnEFDCHYHPWS6505-07-97 22:29:00 Test Item Value Reference Range Interpretation Comments WBC (test code = WBC) 9.5 3.7-10.4 [facility] CampusTvzxcxnQOSNGACHSU9259-56-49 22:29:00 Test Item Value Reference Range Interpretation Comments Hgb (test code = Hgb) 13.9 14.0-18.0 [facility] CampusXrlyvwrKBVXNZYOMY0776-17-53 22:29:00 Test Item Value Reference Range Interpretation Comments Monocytes # (test code 0.7 See_Comment [Aut omated message] The = Monocytes #) system which generated this result tra nsmitted reference range : <=0.8. The reference r matthieu was not used to int erpret this result as normal/abnormal . [facility] CampusMqrvmnoWIMWZOODEI6168-49-48 22:29:00 Test Item Value Reference Range Interpretation Comments Eosinophils # (test code 0.2 See_Comment [A utomated message] The = Eosinophils #) system [facility] generated this result tra nsmitted reference range : <=0.5. The reference r matthieu was not used to int erpret this result as normal/abnormal . [facility] CampusRoeqwwgJWKXKAQQAT8546-21-77 22:29:00 Test Item Value Reference Range Interpretation Comments Eosinophils (test code = 2.5 See_Comment [A utomated message] The Eosinophils) system which ge nerated this result tra nsmitted reference range : <=4.0. The reference r matthieu was not used to int erpret this result as normal/abnormal . [facility] CampusSauwghvEIWOMLVLZS6694-11-16 22:29:00 Test Item Value Reference Range Interpretation Comments Neutrophils # (test code = Neutrophils 6.2 1.5-8.1 #) [facility] CampusMvjnxvuRBYCUVVWSL3245-35-04 22:29:00 Test Item Value Reference Range Interpretation Comments Basophils (test code = 0.6 See_Comment [Aut omated message] The Basophils) system which ge nerated this result tra nsmitted reference range : <=1.0. The reference r matthieu was not used to int erpret this result as normal/abnormal . [facility] CampusQqxazrgEQHLXBRFGV2612-91-61 22:29:00 Test Item Value Reference Range Interpretation Comments Lymphocytes (test code = Lymphocytes) 23.9 20.0-40.0 [facility] CampusYbuspwbUWHPCUCQTZ5334-90-67 22:29:00 Test Item Value Reference Range Interpretation Comments Segs (test code = Segs) 65.6 45.0-75.0 [facility] CampusVfrtarfAOQYEXPTDN7330-39-55 22:29:00 Test Item Value Reference Range Interpretation Comments Monocytes (test code = Monocytes) 7.4 2.0-12.0 [facility] CampusHkmveesEVEVXQVOAO7075-02-98 22:29:00 Test Item Value Reference Range Interpretation Comments Lymphocytes # (test code = Lymphocytes 2.3 1.0-5.5 #) [facility] CampusFpiwrxaZONTEQJLVQ1881-83-30 22:29:00 Test Item Value Reference Range Interpretation Comments Basophils # (test code 0.1 See_Comment [Aut omated message] The = Basophils #) system which generated this result tra nsmitted reference range : <=0.2. The reference r matthieu was not used to int erpret this result as normal/abnormal . [facility] CampusHauufqxITTUHFMLCW0178-02-21 22:29:00 Test Item Value Reference Range Interpretation Comments Microcyte (test code = 1+ *ABN*(08/02/18 Microcyte) 5:29 PM) [facility] [id number] 22:31:00 Test Item Value Reference Range Interpretation Comments eGFR (test code = eGFR) 121 [facility] [id number] 22:31:00 Test Item Value Reference Range Interpretation Comments POC Creatinine (test code = POC 0.6 0.5-1.4 Creatinine) [facility]QkyapodDOQUPUTDUADY1940-22-57 09:58:00 Test Item Value Reference Range Interpretation Comments AGAP (test code = AGAP) 7.9 10.0-20.0 [facility] SystemImdiqzmKSQKYUQZONIY0433-70-89 09:58:00 Test Item Value Reference Range Interpretation Comments eGFR (test code = eGFR) 117 [facility] SystemZwxryzwMTLFUXWNOXJX7494-15-19 09:58:00 Test Item Value Reference Range Interpretation Comments CO2 (test code = CO2) 31 24-32 [facility] SystemKvsgdnhTJDGORGWTOVZ6342-90-29 09:58:00 Test Item Value Reference Range Interpretation Comments Chloride Lvl (test code = Chloride Lvl) 106 95-109 [facility] SystemQfvdvhhWHTPGRASCCDB0521-76-26 09:58:00 Test Item Value Reference Range Interpretation Comments Calcium Lvl (test code = Calcium Lvl) 8.4 8.5-10.5 [facility] SystemLhrpqnsTPYOMPEFRUQU0677-98-26 09:58:00 Test Item Value Reference Range Interpretation Comments BUN (test code = BUN) 6 7-22 [facility] SystemSxsorwfHVYZBQYEWHXR7406-78-87 09:58:00 Test Item Value Reference Range Interpretation Comments Sodium Lvl (test code = Sodium Lvl) 141 135-145 [facility] SystemMvwvxezKGHFOPIWJALE1428-16-83 09:58:00 Test Item Value Reference Range Interpretation Comments Creatinine Lvl (test code = Creatinine 0.66 0.50-1.40 Lvl) [facility] SystemBmwicowCTHCEYHSSRQC2475-17-54 09:58:00 Test Item Value Reference Range Interpretation Comments Potassium Lvl (test code = Potassium 3.9 3.5-5.1 Lvl) [facility] SystemKeliiooLQFDBTCCRZND6254-07-98 09:58:00 Test Item Value Reference Range Interpretation Comments Glucose Lvl (test code = Glucose Lvl) 174 70-99 [facility] CampusCrerqqsJAURMZPKZE4474-60-94 09:58:00 Test Item Value Reference Range Interpretation Comments Basophils (test code = 0.4 See_Comment [Aut omated message] The Basophils) system which ge nerated this result tra nsmitted reference range : <=1.0. The reference r matthieu was not used to int erpret this result as normal/abnormal . [facility] CampusEkbhnlyRJRJCMLAQA3595-39-61 09:58:00 Test Item Value Reference Range Interpretation Comments Neutrophils # (test code = Neutrophils 6.9 1.5-8.1 #) [facility] CampusGupquvfNMRXDSETRU8317-88-37 09:58:00 Test Item Value Reference Range Interpretation Comments Lymphocytes # (test code = Lymphocytes 3.1 1.0-5.5 #) [facility] CampusNugitfbUKFPFKZILI1730-75-37 09:58:00 Test Item Value Reference Range Interpretation Comments Monocytes # (test code 0.8 See_Comment [Aut omated message] The = Monocytes #) system which generated this result tra nsmitted reference range : <=0.8. The reference r matthieu was not used to int erpret this result as normal/abnormal . [facility] CampusAdofrajHDXGNRALKS5876-92-41 09:58:00 Test Item Value Reference Range Interpretation Comments Basophils # (test code 0.0 See_Comment [Aut omated message] The = Basophils #) system which generated this result tra nsmitted reference range : <=0.2. The reference r matthieu was not used to int erpret this result as normal/abnormal . [facility] CampusZlowdiyGULVRLWFHH6200-03-63 09:58:00 Test Item Value Reference Range Interpretation Comments Eosinophils # (test code 0.3 See_Comment [A utomated message] The = Eosinophils #) system whic h generated this result tra nsmitted reference range : <=0.5. The reference r matthieu was not used to int erpret this result as normal/abnormal . [facility] CampusMsrbgbpFFMSHIVWZH6162-87-90 09:58:00 Test Item Value Reference Range Interpretation Comments Eosinophils (test code = 2.8 See_Comment [A utomated message] The Eosinophils) system which ge nerated this result tra nsmitted reference range : <=4.0. The reference r matthieu was not used to int erpret this result as normal/abnormal . [facility] CampusEnzteaeDKAMEYNQKW4787-60-52 09:58:00 Test Item Value Reference Range Interpretation Comments Segs (test code = Segs) 61.7 45.0-75.0 [facility] CampusQrnfzoeVYPNEWIIHK9450-08-60 09:58:00 Test Item Value Reference Range Interpretation Comments Lymphocytes (test code = Lymphocytes) 27.6 20.0-40.0 [facility] CampusNejbxjjHORQXVUIYU0587-32-82 09:58:00 Test Item Value Reference Range Interpretation Comments Monocytes (test code = Monocytes) 7.5 2.0-12.0 [facility] CampusFrwqggtOYGYKRXJOU9050-52-78 09:58:00 Test Item Value Reference Range Interpretation Comments Platelet (test code = Platelet) 294 133-450 [facility] CampusByggagsEMRGVBAYEK2568-88-27 09:58:00 Test Item Value Reference Range Interpretation Comments MPV (test code = MPV) 8.7 7.4-10.4 [facility] CampusRuluiwmVOOLJXWLVJ5951-63-62 09:58:00 Test Item Value Reference Range Interpretation Comments WBC (test code = WBC) 11.2 3.7-10.4 [facility] CampusJajfwohQFFKXXYIWW6162-52-42 09:58:00 Test Item Value Reference Range Interpretation Comments MCHC (test code = MCHC) 31.3 32.0-36.0 [facility] CampusFrirtlsGTJXMQGCMP2524-88-47 09:58:00 Test Item Value Reference Range Interpretation Comments MCV (test code = MCV) 77.6 80.0-94.0 [facility] CampusZlfjzhbEKVMSEPVGP8207-08-45 09:58:00 Test Item Value Reference Range Interpretation Comments MCH (test code = MCH) 24.3 pg 27.0-31.0 [facility] CampusPheigjfSWMPBWSYHA6096-41-43 09:58:00 Test Item Value Reference Range Interpretation Comments Hgb (test code = Hgb) 12.9 14.0-18.0 [facility] CampusPigoxjsDVXYVQZTOA7572-84-80 09:58:00 Test Item Value Reference Range Interpretation Comments Hct (test code = Hct) 41.3 42.0-54.0 [facility] CampusBnuqimfNKEALOUZHM3210-91-27 09:58:00 Test Item Value Reference Range Interpretation Comments RDW (test code = RDW) 16.9 11.5-14.5 [facility] CampusJiaandcRGZEDSQGOJ6003-80-73 09:58:00 Test Item Value Reference Range Interpretation Comments RBC (test code = RBC) 5.32 4.70-6.10 [facility]EhqasnoNHPEVB0348-05-83 09:58:00 Test Item Value Reference Range Interpretation Comments CHD Risk (test code = CHD Risk) 4.74 1 4.00-7.30 [facility]ieQskdhksAOXTEL0615-11-94 09:58:00 Test Item Value Reference Range Interpretation Comments LDL (Calculated) (test code = LDL 99 (Calculated)) [facility]ieBpxzlfrYWLUKB8165-45-37 09:58:00 Test Item Value Reference Range Interpretation Comments HDL (test code = HDL) 31 [facility]ieMmpibhtJRVMBB6746-08-71 09:58:00 Test Item Value Reference Range Interpretation Comments VLDL (test code = VLDL) 17 1 [facility]QkizdbbDEDNGL7398-46-30 09:58:00 Test Item Value Reference Range Interpretation Comments Chol (test code = Chol) 147 [facility] SouthGyucqusYXXGON3214-46-89 09:58:00 Test Item Value Reference Range Interpretation Comments Trig (test code = Trig) 83 [facility] SouthSPECIAL ZKZATHPNM7530-15-88 09:58:00 Test Item Value Reference Range Interpretation Comments Hgb A1C (test code = Hgb A1C) 6.6 [facility] AND [id number] 01:54:00 Test Item Value Reference Range Interpretation Comments UA [place] Yeast (test code = UA Occasional /HPF [place] Yeast) [facility] AND [id number] 01:54:00 Test Item Value Reference Range Interpretation Comments UA Urobilinogen (test code = UA <=1.0 mg/dL 0.1-1.0 Urobilinogen) [facility] AND [id number] 01:54:00 Test Item Value Reference Range Interpretation Comments UA Protein (test code = UA Negative mg/dL Protein) [facility] AND [id number] 01:54:00 Test Item Value Reference Range Interpretation Comments UA Glucose (test code = UA Negative mg/dL Glucose) [facility] AND [id number] 01:54:00 Test Item Value Reference Range Interpretation Comments UA Ketones (test code = UA Negative mg/dL Ketones) [facility] AND [id number] 01:54:00 Test Item Value Reference Range Interpretation Comments UA Bili (test code = Negative *NA*(10/31/17 UA Bili) 8:54 PM) [facility] AND [id number] 01:54:00 Test Item Value Reference Range Interpretation Comments UA CaOx Danyelle (test code = UA Occasional /HPF CaOx Danyelle) [facility] AND [id number] 01:54:00 Test Item Value Reference Range Interpretation Comments UA RBC (test code = 2 See_Comment [Automa yanely message] The UA RBC) system which ge nerated this result transmit yanely reference range : <=2. The reference range was not used to interpr et this result as brielle l/abnormal. [facility] AND [id number] 01:54:00 Test Item Value Reference Range Interpretation Comments UA Color (test code = Light Yellow UA Color) *NA*(10/31/17 8:54 PM) [facility] AND [id number] 01:54:00 Test Item Value Reference Range Interpretation Comments UA Turbidity (test code = Clear (10/31/17 8:54 UA Turbidity) PM) [facility] AND [id number] 01:54:00 Test Item Value Reference Range Interpretation Comments UA Spec Grav (test code = UA Spec 1.003 1 Grav) [facility] AND [id number] 01:54:00 Test Item Value Reference Range Interpretation Comments UA pH (test code = UA pH) 6.0 1 5.0-8.0 [facility] AND [id number] 01:54:00 Test Item Value Reference Range Interpretation Comments UA Nitrite (test code Negative (10/31/17 8:54 = UA Nitrite) PM) [facility] AND [id number] 01:54:00 Test Item Value Reference Range Interpretation Comments UA Blood (test code = Negative (10/31/17 8:54 UA Blood) PM) [facility] AND [id number] 01:54:00 Test Item Value Reference Range Interpretation Comments UA Leuk Est (test Negative (10/31/17 8:54 code = UA Leuk Est) PM) [facility] AND [id number] 01:54:00 Test Item Value Reference Range Interpretation Comments UA Sq Epi (test code = UA Sq Occasional /LPF Epi) [facility] [id number] 01:12:00 Test Item Value Reference Range Interpretation Comments Total CK (test code = Total CK) 85 12-191 [facility] JPEYTIU8817-27-95 01:12:00 Test Item Value Reference Range Interpretation Comments Troponin-I (test code no gt See_Comment [Auto mated message] The = Troponin-I) system which g enerated this result transmit yanely reference range : <=0.40. The reference r matthieu was not used to interpr et this result as brielle l/abnormal. [facility] [employer]CHEM [id number] 01:12:00 Test Item Value Reference Range Interpretation Comments eGFR (test code = eGFR) 110 [facility]2018-08-16 01:12:00 Test Item Value Reference Range Interpretation Comments ALT (test code = ALT) 28 See_Comment [Auto mated message] The system which ge nerated this result transmit yanely reference range : <=65. The reference range was not used to interpr et this result as brielle l/abnormal. [facility]2018-08-16 01:12:00 Test Item Value Reference Range Interpretation Comments AST (test code = AST) 10 See_Comment [Auto mated message] The system which ge nerated this result transmit yanely reference range : <=37. The reference range was not used to interpr et this result as brielle l/abnormal. [place] [id number] 01:12:00 Test Item Value Reference Range Interpretation Comments Albumin Lvl (test code = Albumin Lvl) 3.5 3.5-5.0 [facility]2018-08-16 01:12:00 Test Item Value Reference Range Interpretation Comments CO2 (test code = CO2) 33 24-32 [facility]2018-08-16 01:12:00 Test Item Value Reference Range Interpretation Comments Calcium Lvl (test code = Calcium Lvl) 8.8 8.5-10.5 [facility]2018-08-16 01:12:00 Test Item Value Reference Range Interpretation Comments Total Protein (test code = Total 8.0 6.4-8.4 Protein) [facility]2018-08-16 01:12:00 Test Item Value Reference Range Interpretation Comments Bili Total (test code = Bili Total) 0.4 0.2-1.3 [facility]2018-08-16 01:12:00 Test Item Value Reference Range Interpretation Comments Alk Phos (test code = Alk Phos) 103 39-136 [facility]2018-08-16 01:12:00 Test Item Value Reference Range Interpretation Comments Sodium Lvl (test code = Sodium Lvl) 141 135-145 [facility]2018-08-16 01:12:00 Test Item Value Reference Range Interpretation Comments Potassium Lvl (test code = Potassium 3.8 3.5-5.1 Lvl) [facility]2018-08-16 01:12:00 Test Item Value Reference Range Interpretation Comments Chloride Lvl (test code = Chloride Lvl) 104 95-109 [facility]2018-08-16 01:12:00 Test Item Value Reference Range Interpretation Comments BUN (test code = BUN) 8 7-22 [facility]2018-08-16 01:12:00 Test Item Value Reference Range Interpretation Comments Glucose Lvl (test code = Glucose Lvl) 199 70-99 [facility]2018-08-16 01:12:00 Test Item Value Reference Range Interpretation Comments Creatinine Lvl (test code = Creatinine 0.76 0.50-1.40 Lvl) [facility]2018-08-16 01:12:00 Test Item Value Reference Range Interpretation Comments A/G Ratio (test code = A/G Ratio) 0.8 1 0.7-1.6 [facility]2018-08-16 01:12:00 Test Item Value Reference Range Interpretation Comments B/C Ratio (test code = B/C Ratio) 11 1 6-25 [facility]2018-08-16 01:12:00 Test Item Value Reference Range Interpretation Comments Globulin (test code = Globulin) 4.5 2.7-4.2 [facility]2018-08-16 01:12:00 Test Item Value Reference Range Interpretation Comments AGAP (test code = AGAP) 7.8 10.0-20.0 [facility] CampusF[id number] 01:12:00 Test Item Value Reference Range Interpretation Comments Microcyte (test code = 1+ *ABN*(10/31/17 Microcyte) 8:12 PM) [facility] CampusGcecttuHRQIXURYXW2432-71-73 01:12:00 Test Item Value Reference Range Interpretation Comments Anisocyte (test code = 1+ *ABN*(10/31/17 Anisocyte) 8:12 PM) [facility] CampusLpqynvwRGGKSSBBEB1899-97-28 01:12:00 Test Item Value Reference Range Interpretation Comments Hypochrom (test code = 1+ (10/31/17 8:12 PM) Hypochrom) [facility] CampusCoqdpdsGQHREZMWSZ2618-26-70 01:12:00 Test Item Value Reference Range Interpretation Comments Monocytes (test code = Monocytes) 5.9 2.0-12.0 [facility] CampusAwzjzkyEKEKPIPNVS6008-52-87 01:12:00 Test Item Value Reference Range Interpretation Comments Basophils (test code = 0.4 See_Comment [Aut omated message] The Basophils) system which ge nerated this result tra nsmitted reference range : <=1.0. The reference r matthieu was not used to int erpret this result as normal/abnormal . [facility] CampusUqnjctoBYUEUSHHLP1674-09-02 01:12:00 Test Item Value Reference Range Interpretation Comments Basophils # (test code 0.1 See_Comment [Aut omated message] The = Basophils #) system which generated this result tra nsmitted reference range : <=0.2. The reference r matthieu was not used to int erpret this result as normal/abnormal . [facility] CampusGjviqcdMHAHYNFJBY0239-11-24 01:12:00 Test Item Value Reference Range Interpretation Comments Eosinophils # (test code 0.2 See_Comment [A utomated message] The = Eosinophils #) system whic h generated this result tra nsmitted reference range : <=0.5. The reference r matthieu was not used to int erpret this result as normal/abnormal . [facility] CampusMykvvpxTVUKBZQSCI9755-39-56 01:12:00 Test Item Value Reference Range Interpretation Comments Monocytes # (test code 0.9 See_Comment [Aut omated message] The = Monocytes #) system which generated this result tra nsmitted reference range : <=0.8. The reference r matthieu was not used to int erpret this result as normal/abnormal . [facility] CampusFgrtfbyXGSLDDDQDP8938-51-77 01:12:00 Test Item Value Reference Range Interpretation Comments Eosinophils (test code = 1.4 See_Comment [A utomated message] The Eosinophils) system which ge nerated this result tra nsmitted reference range : <=4.0. The reference r matthieu was not used to int erpret this result as normal/abnormal . [facility] CampusSbhjiuqMIJQOVILHC0976-09-48 01:12:00 Test Item Value Reference Range Interpretation Comments Lymphocytes # (test code = Lymphocytes 2.9 1.0-5.5 #) [facility] CampusEzmtvpmXNQHUYKYBJ2406-21-13 01:12:00 Test Item Value Reference Range Interpretation Comments Neutrophils # (test code = Neutrophils 10.8 1.5-8.1 #) [facility] CampusUkuwcyoWJCKACTELM8845-86-11 01:12:00 Test Item Value Reference Range Interpretation Comments Lymphocytes (test code = Lymphocytes) 19.7 20.0-40.0 [facility] CampusJjibelhLHEGCVKGFD8053-61-65 01:12:00 Test Item Value Reference Range Interpretation Comments Segs (test code = Segs) 72.6 45.0-75.0 [facility] CampusPlhjnkbBXZAXYLIVX7297-53-11 01:12:00 Test Item Value Reference Range Interpretation Comments RBC Morph (test code = Normal (10/31/17 8:12 RBC Morph) PM) [facility] CampusByvztnuJYAHHZRYVO1610-78-46 01:12:00 Test Item Value Reference Range Interpretation Comments Plt Morph (test code = Normal (10/31/17 8:12 Plt Morph) PM) [facility] CampusPoxschnSWXMGSMVRB9833-28-39 01:12:00 Test Item Value Reference Range Interpretation Comments Platelet (test code = Platelet) 294 133-450 [facility] CampusFyeqnzyYCCFPJIEKF3768-34-98 01:12:00 Test Item Value Reference Range Interpretation Comments MPV (test code = MPV) 8.5 7.4-10.4 [facility] CampusPpabgttFLQCLWMZRK5499-30-31 01:12:00 Test Item Value Reference Range Interpretation Comments RDW (test code = RDW) 17.1 11.5-14.5 [facility] CampusLyvycxkYUAMWEECLU5723-15-16 01:12:00 Test Item Value Reference Range Interpretation Comments MCH (test code = MCH) 24.2 pg 27.0-31.0 [facility] CampusXxevxzdAZFWQNVWER0002-11-16 01:12:00 Test Item Value Reference Range Interpretation Comments MCV (test code = MCV) 78.0 80.0-94.0 [facility] CampusQytwxheAXTWHPDBQI6045-91-65 01:12:00 Test Item Value Reference Range Interpretation Comments MCHC (test code = MCHC) 31.0 32.0-36.0 [facility] CampusXyquuymHPCEYMHWDW2286-98-07 01:12:00 Test Item Value Reference Range Interpretation Comments Hgb (test code = Hgb) 13.3 14.0-18.0 [facility] CampusYlgxbvuIYCEPIVWVQ8659-39-61 01:12:00 Test Item Value Reference Range Interpretation Comments Hct (test code = Hct) 42.7 42.0-54.0 [facility] CampusBziwsymJNERLMTCKU5161-76-54 01:12:00 Test Item Value Reference Range Interpretation Comments WBC (test code = WBC) 14.9 3.7-10.4 [facility] CampusJmiazmzJMIFJKLEAA3927-22-09 01:12:00 Test Item Value Reference Range Interpretation Comments RBC (test code = RBC) 5.48 4.70-6.10 [facility]CHE[facility] CHYNU1340-37-68 07:38:00 Test Item Value Reference Range Interpretation Comments Phosphorus (test code = Phosphorus) 3.4 2.5-4.5 [facility]spQCHHSBJLUUDW5834-91-03 07:38:00 Test Item Value Reference Range Interpretation Comments AGAP (test code = AGAP) 13.0 10.0-20.0 [facility]WxlocgjWLZQQOJDDFRZ1892-79-77 07:38:00 Test Item Value Reference Range Interpretation Comments eGFR (test code = eGFR) 117 [facility]XzndwvnNWRHZGOQMQIW3484-02-43 07:38:00 Test Item Value Reference Range Interpretation Comments Glucose Lvl (test code = Glucose Lvl) 116 70-99 [facility] SystemZzjsontEZVZEYOJFRXU8916-75-29 07:38:00 Test Item Value Reference Range Interpretation Comments BUN (test code = BUN) 8 7-22 [facility]WkfwpwgLMVMYWIQYROF3431-35-84 07:38:00 Test Item Value Reference Range Interpretation Comments CO2 (test code = CO2) 29 24-32 [facility] SystemYgwlsrfMREOPOUPDBWU4417-90-71 07:38:00 Test Item Value Reference Range Interpretation Comments Calcium Lvl (test code = Calcium Lvl) 8.9 8.5-10.5 [facility] SystemQgymdegTKNSVQFUXNUA7269-83-13 07:38:00 Test Item Value Reference Range Interpretation Comments Potassium Lvl (test code = Potassium 4.0 3.5-5.1 Lvl) [facility] SystemConrcokUHZQNJTCTGJI7114-51-43 07:38:00 Test Item Value Reference Range Interpretation Comments Creatinine Lvl (test code = Creatinine 0.66 0.50-1.40 Lvl) [facility] SystemEylboedQNOXMXBFTWNI6279-27-16 07:38:00 Test Item Value Reference Range Interpretation Comments Sodium Lvl (test code = Sodium Lvl) 142 135-145 [facility] SystemHbenjifFUAXAJMKCOZG0115-25-61 07:38:00 Test Item Value Reference Range Interpretation Comments Chloride Lvl (test code = Chloride Lvl) 104 95-109 [facility] CampusJdvaezaPOUOHWWMSR4496-79-47 07:38:00 Test Item Value Reference Range Interpretation Comments Lymphocytes # (test code = Lymphocytes 3.1 1.0-5.5 #) [facility] CampusEvnmswlXLJEKSTCAE9176-01-20 07:38:00 Test Item Value Reference Range Interpretation Comments Segs-Bands # (test code = Segs-Bands #) 6.7 1.5-8.1 [facility] CampusFdvgtnnXLVQDKWDWF9569-81-77 07:38:00 Test Item Value Reference Range Interpretation Comments Monocytes # (test code 0.8 See_Comment [Aut omated message] The = Monocytes #) system which generated this result tra nsmitted reference range : <=0.8. The reference r matthieu was not used to int erpret this result as normal/abnormal . [facility] CampusOqjgkicECUXMRXAVP2432-24-32 07:38:00 Test Item Value Reference Range Interpretation Comments Basophils (test code = 0.6 See_Comment [Aut omated message] The Basophils) system which ge nerated this result tra nsmitted reference range : <=1.0. The reference r matthieu was not used to int erpret this result as normal/abnormal . [facility] CampusKrsxldsKVPABPIWUE7034-30-89 07:38:00 Test Item Value Reference Range Interpretation Comments Monocytes (test code = Monocytes) 7.2 2.0-12.0 [facility] CampusOojbbiuAMLBZHSLPI8692-01-89 07:38:00 Test Item Value Reference Range Interpretation Comments Eosinophils # (test code 0.3 See_Comment [A utomated message] The = Eosinophils #) system whic h generated this result tra nsmitted reference range : <=0.5. The reference r matthieu was not used to int erpret this result as normal/abnormal . [facility] CampusSfvvdqcACBKVBDYVH2880-77-06 07:38:00 Test Item Value Reference Range Interpretation Comments Basophils # (test code 0.1 See_Comment [Aut omated message] The = Basophils #) system which generated this result tra nsmitted reference range : <=0.2. The reference r matthieu was not used to int erpret this result as normal/abnormal . [facility] CampusXdsawbkJDNMQSGZBY8617-77-81 07:38:00 Test Item Value Reference Range Interpretation Comments Microcyte (test code = 1+ *ABN*(06/28/17 Microcyte) 2:38 AM) [facility] CampusPxnypclHCWEZCTNOS1595-72-58 07:38:00 Test Item Value Reference Range Interpretation Comments Segs (test code = Segs) 61.0 45.0-75.0 [facility] CampusJmvyzkvMRRPFFYBQL5369-68-70 07:38:00 Test Item Value Reference Range Interpretation Comments Lymphocytes (test code = Lymphocytes) 28.4 20.0-40.0 [facility] CampusQxssqkmOGTDPYRVZB6100-37-53 07:38:00 Test Item Value Reference Range Interpretation Comments Eosinophils (test code = 2.8 See_Comment [A utomated message] The Eosinophils) system which ge nerated this result tra nsmitted reference range : <=4.0. The reference r matthieu was not used to int erpret this result as normal/abnormal . [facility] CampusIzjbdteHWCNPEKBOF5123-35-60 07:38:00 Test Item Value Reference Range Interpretation Comments MPV (test code = MPV) 9.2 7.4-10.4 [facility] CampusNldqiloZFUNXGPCSW8797-24-38 07:38:00 Test Item Value Reference Range Interpretation Comments Platelet (test code = Platelet) 234 133-450 [facility] CampusUgzpfyfETNMMZBUVJ4121-78-52 07:38:00 Test Item Value Reference Range Interpretation Comments MCH (test code = MCH) 24.8 pg 27.0-31.0 [facility] CampusMtfytntIZCRFCJCFG5924-15-45 07:38:00 Test Item Value Reference Range Interpretation Comments Hct (test code = Hct) 44.6 42.0-54.0 [facility] CampusGdfdipiZKUAXEXMQT9247-11-23 07:38:00 Test Item Value Reference Range Interpretation Comments MCV (test code = MCV) 77.6 80.0-94.0 [facility] CampusHxhkdkrNTPMYZFIUG2984-65-68 07:38:00 Test Item Value Reference Range Interpretation Comments RDW (test code = RDW) 17.1 11.5-14.5 [facility] CampusZpktzjjKXBPMOHTMX4945-03-33 07:38:00 Test Item Value Reference Range Interpretation Comments MCHC (test code = MCHC) 32.0 32.0-36.0 [facility] CampusGzytqncKEKPKNHKBJ4379-51-61 07:38:00 Test Item Value Reference Range Interpretation Comments WBC (test code = WBC) 11.0 3.7-10.4 [facility] CampusCvwjrklAXMSXTDIAR6475-38-06 07:38:00 Test Item Value Reference Range Interpretation Comments Hgb (test code = Hgb) 14.2 14.0-18.0 [facility]MjzfpxbBUNCTFUQJQ6325-85-35 07:38:00 Test Item Value Reference Range Interpretation Comments RBC (test code = RBC) 5.75 4.70-6.10 [facility]2018-04-11 09:51:00 Test Item Value Reference Range Interpretation Comments Phosphorus (test code = Phosphorus) 3.7 2.5-4.5 [facility] SouthRoxrtmhANBBCBHOCL6307-92-90 09:51:00 Test Item Value Reference Range Interpretation Comments HIV Ag/Ab 4th Gen Negative *NA*(06/27/17 (test code = HIV 4:51 AM) Ag/Ab 4th Gen) [facility] SouthItgdbocKCZHYHVHAJ1179-27-60 09:51:00 Test Item Value Reference Range Interpretation Comments Treponemal Ab (test code Non Reactive = Treponemal Ab) *NA*(06/27/17 4:51 AM) [facility]2018-04-10 09:57:00 Test Item Value Reference Range Interpretation Comments Phosphorus (test code = Phosphorus) 3.2 2.5-4.5 [facility]2018-04-10 09:57:00 Test Item Value Reference Range Interpretation Comments Magnesium Lvl (test code = Magnesium 2.0 1.8-2.4 Lvl) [facility]2018-04-10 09:57:00 Test Item Value Reference Range Interpretation Comments eGFR (test code = eGFR) 114 [facility]2018-04-10 09:57:00 Test Item Value Reference Range Interpretation Comments BUN (test code = BUN) 9 7-22 [facility]2018-04-10 09:57:00 Test Item Value Reference Range Interpretation Comments Creatinine Lvl (test code = Creatinine 0.70 0.50-1.40 Lvl) [facility]2018-04-10 09:57:00 Test Item Value Reference Range Interpretation Comments Glucose Lvl (test code = Glucose Lvl) 133 70-99 [facility]2018-04-10 09:57:00 Test Item Value Reference Range Interpretation Comments Sodium Lvl (test code = Sodium Lvl) 138 135-145 [facility]2018-04-10 09:57:00 Test Item Value Reference Range Interpretation Comments Potassium Lvl (test code = Potassium 3.6 3.5-5.1 Lvl) [facility]2018-04-10 09:57:00 Test Item Value Reference Range Interpretation Comments ALT (test code = ALT) 53 See_Comment [Auto mated message] The system which ge nerated this result transmit yanely reference range : <=65. The reference range was not used to interpr et this result as brielle l/abnormal. [facility]2018-04-10 09:57:00 Test Item Value Reference Range Interpretation Comments AST (test code = AST) 44 See_Comment [Auto mated message] The system which ge nerated this result transmit yanely reference range : <=37. The reference range was not used to interpr et this result as brielle l/abnormal. [facility]2018-04-10 09:57:00 Test Item Value Reference Range Interpretation Comments Albumin Lvl (test code = Albumin Lvl) 3.5 3.5-5.0 [facility]2018-04-10 09:57:00 Test Item Value Reference Range Interpretation Comments Calcium Lvl (test code = Calcium Lvl) 8.6 8.5-10.5 [facility]2018-04-10 09:57:00 Test Item Value Reference Range Interpretation Comments Total Protein (test code = Total 7.9 6.4-8.4 Protein) [facility]2018-04-10 09:57:00 Test Item Value Reference Range Interpretation Comments Chloride Lvl (test code = Chloride Lvl) 104 95-109 [facility]2018-04-10 09:57:00 Test Item Value Reference Range Interpretation Comments CO2 (test code = CO2) 27 24-32 [facility]2018-04-10 09:57:00 Test Item Value Reference Range Interpretation Comments Alk Phos (test code = Alk Phos) 96 39-136 [facility]2018-04-10 09:57:00 Test Item Value Reference Range Interpretation Comments Bili Total (test code = Bili Total) 0.4 0.2-1.3 [facility]2018-04-10 09:57:00 Test Item Value Reference Range Interpretation Comments A/G Ratio (test code = A/G Ratio) 0.8 1 0.7-1.6 [place] 400778-04-10 09:57:00 Test Item Value Reference Range Interpretation Comments Globulin (test code = Globulin) 4.4 2.7-4.2 [facility]2018-04-10 09:57:00 Test Item Value Reference Range Interpretation Comments B/C Ratio (test code = B/C Ratio) 13 1 6-25 [facility]2018-04-10 09:57:00 Test Item Value Reference Range Interpretation Comments AGAP (test code = AGAP) 10.6 10.0-20.0 [facility] CampusAgplzaeQXOREENXBS3863-90-21 09:57:00 Test Item Value Reference Range Interpretation Comments Eosinophils # (test code 0.2 See_Comment [A utomated message] The = Eosinophils #) system whic h generated this result tra nsmitted reference range : <=0.5. The reference r matthieu was not used to int erpret this result as normal/abnormal . [facility] CampusEiufwmpLTDZSIRXNY1915-46-31 09:57:00 Test Item Value Reference Range Interpretation Comments Basophils # (test code 0.1 See_Comment [Aut omated message] The = Basophils #) system which generated this result tra nsmitted reference range : <=0.2. The reference r matthieu was not used to int erpret this result as normal/abnormal . [facility] CampusXldotxuJZPTKTJTBV5870-82-19 09:57:00 Test Item Value Reference Range Interpretation Comments Segs-Bands # (test code = Segs-Bands #) 6.4 1.5-8.1 [facility] CampusDzwphtfBLOZNPYPRR8436-73-30 09:57:00 Test Item Value Reference Range Interpretation Comments Lymphocytes # (test code = Lymphocytes 3.0 1.0-5.5 #) [facility] CampusYmryfkzWRXOQSFSRC9453-30-37 09:57:00 Test Item Value Reference Range Interpretation Comments Monocytes # (test code 0.9 See_Comment [Aut omated message] The = Monocytes #) system which generated this result tra nsmitted reference range : <=0.8. The reference r matthieu was not used to int erpret this result as normal/abnormal . [facility] CampusKkxzxgxOKVWPETBAY6816-36-75 09:57:00 Test Item Value Reference Range Interpretation Comments Microcyte (test code = 1+ *ABN*(06/26/17 Microcyte) 4:57 AM) [facility] CampusOscjimgCACJMRGHGK5629-41-93 09:57:00 Test Item Value Reference Range Interpretation Comments Segs (test code = Segs) 60.4 45.0-75.0 [facility] CampusGadtzzmCODTSBHRKW0880-82-23 09:57:00 Test Item Value Reference Range Interpretation Comments Lymphocytes (test code = Lymphocytes) 28.2 20.0-40.0 [facility] CampusTsbcmgbODLROTNMMK5847-61-62 09:57:00 Test Item Value Reference Range Interpretation Comments Basophils (test code = 0.5 See_Comment [Aut omated message] The Basophils) system which ge nerated this result tra nsmitted reference range : <=1.0. The reference r matthieu was not used to int erpret this result as normal/abnormal . [facility] CampusLcdkgmkSTDJHRBSTX2066-59-84 09:57:00 Test Item Value Reference Range Interpretation Comments Monocytes (test code = Monocytes) 8.6 2.0-12.0 [facility] CampusFiewiibOIUVQVFCTF2351-33-88 09:57:00 Test Item Value Reference Range Interpretation Comments Eosinophils (test code = 2.3 See_Comment [A utomated message] The Eosinophils) system which ge nerated this result tra nsmitted reference range : <=4.0. The reference r matthieu was not used to int erpret this result as normal/abnormal . [facility] CampusZmyhyqyXTVZKZQWFT2505-58-80 09:57:00 Test Item Value Reference Range Interpretation Comments MCH (test code = MCH) 25.3 pg 27.0-31.0 [facility] CampusTzfdutmKJHUKZQHVR1108-40-76 09:57:00 Test Item Value Reference Range Interpretation Comments MCHC (test code = MCHC) 32.8 32.0-36.0 [facility] CampusJnhhsrpIIZIHDGMLQ3933-08-66 09:57:00 Test Item Value Reference Range Interpretation Comments MPV (test code = MPV) 8.9 7.4-10.4 [facility] CampusLdzxhxjFKWASAWGSO4466-22-40 09:57:00 Test Item Value Reference Range Interpretation Comments RDW (test code = RDW) 16.7 11.5-14.5 [facility] CampusTarrdhyYSOSURYZMK1223-85-60 09:57:00 Test Item Value Reference Range Interpretation Comments Platelet (test code = Platelet) 220 133-450 [facility] CampusNygnobfMSQJBXCABA5092-94-90 09:57:00 Test Item Value Reference Range Interpretation Comments Hct (test code = Hct) 42.2 42.0-54.0 [facility] RjjjsjgPWZQVTENLU1666-74-54 09:57:00 Test Item Value Reference Range Interpretation Comments MCV (test code = MCV) 77.3 80.0-94.0 [facility] XwcrqmtAVNFYCCOEH4069-93-21 09:57:00 Test Item Value Reference Range Interpretation Comments RBC (test code = RBC) 5.46 4.70-6.10 [facility] EdfrtdaTEUJFUELOQ0644-15-21 09:57:00 Test Item Value Reference Range Interpretation Comments Hgb (test code = Hgb) 13.8 14.0-18.0 [facility] IwluuwoVZFMJXVABZ5456-68-48 09:57:00 Test Item Value Reference Range Interpretation Comments WBC (test code = WBC) 10.5 3.7-10.4 [facility] QkocfwnIEGNBSHEAO6106-74-49 09:57:00 Test Item Value Reference Range Interpretation Comments HIV Ag/Ab 4th Gen Negative *NA*(06/26/17 (test code = HIV 4:57 AM) Ag/Ab 4th Gen) [facility]annPARATHYROID [id number] 09:57:00 Test Item Value Reference Range Interpretation Comments Ca Ion WB (test code = Ca Ion WB) 1.03 1.05-1.25 [facility]annPARATHYROID [id number] 09:57:00 Test Item Value Reference Range Interpretation Comments Ca Norm WB (test code = Ca Norm WB) 1.01 1.05-1.25 [facility]annDR[facility] [id number] 18:23:00 Test Item Value Reference Range Interpretation Comments U Propoxyph Scr (test Negative *NA*(06/25/17 code = U Propoxyph Scr) 1:23 PM) [facility]annDR[facility] [id number] 18:23:00 Test Item Value Reference Range Interpretation Comments U Methadone Scr (test Negative *NA*(06/25/17 code = U Methadone Scr) 1:23 PM) [facility]annDR[facility] [id number] 18:23:00 Test Item Value Reference Range Interpretation Comments U Phencyc Scr (test Negative *NA*(06/25/17 code = U Phencyc Scr) 1:23 PM) [facility] [id number] 18:23:00 Test Item Value Reference Range Interpretation Comments UDS Note (test code = See Note (06/25/17 1:23 UDS Note) PM) [facility] [id number] 18:23:00 Test Item Value Reference Range Interpretation Comments U Stephanie Scr (test code Negative *NA*(06/25/17 = U Stephanie Scr) 1:23 PM) [facility] [id number] 18:23:00 Test Item Value Reference Range Interpretation Comments U Cocaine Scr (test Negative *NA*(06/25/17 code = U Cocaine Scr) 1:23 PM) [facility] [id number] 18:23:00 Test Item Value Reference Range Interpretation Comments U Benzodia Scr (test Negative *NA*(06/25/17 code = U Benzodia Scr) 1:23 PM) [facility] [id number] 18:23:00 Test Item Value Reference Range Interpretation Comments U Amph Scr (test code Negative *NA*(06/25/17 = U Amph Scr) 1:23 PM) [facility] [id number] 18:23:00 Test Item Value Reference Range Interpretation Comments U Opiate Scr (test Negative *NA*(06/25/17 code = U Opiate Scr) 1:23 PM) [facility] [id number] 18:23:00 Test Item Value Reference Range Interpretation Comments U Cannab Scr (test Positive *ABN*(06/25/17 code = U Cannab Scr) 1:23 PM) [facility] [id number] 18:23:00 Test Item Value Reference Range Interpretation Comments UA Urobilinogen (test code = UA 2.0 0.1-1.0 Urobilinogen) [facility] [id number] 18:23:00 Test Item Value Reference Range Interpretation Comments UA Nitrite (test code Negative (06/25/17 1:23 = UA Nitrite) PM) [facility] [id number] 18:23:00 Test Item Value Reference Range Interpretation Comments UA Leuk Est (test Negative (06/25/17 1:23 code = UA Leuk Est) PM) [facility] [id number] 18:23:00 Test Item Value Reference Range Interpretation Comments UA WBC (test code = 1 See_Comment [Automa yanely message] The UA WBC) system which ge nerated this result transmit yanely reference range : <=5. The reference range was not used to interpr et this result as brielle l/abnormal. [facility] [id number] 18:23:00 Test Item Value Reference Range Interpretation Comments UA Bacteria (test code = UA Few /HPF Bacteria) [facility] [id number] 18:23:00 Test Item Value Reference Range Interpretation Comments UA Mucus (test code = UA Mucus) Many /LPF [facility] [id number] 18:23:00 Test Item Value Reference Range Interpretation Comments UA Sq Epi (test code = UA Sq Epi) None Seen [facility] [id number] 18:23:00 Test Item Value Reference Range Interpretation Comments UA Bili (test code = Negative *NA*(06/25/17 UA Bili) 1:23 PM) [facility] [id number] 18:23:00 Test Item Value Reference Range Interpretation Comments UA Ketones (test code = UA Negative mg/dL Ketones) [facility] [id number] 18:23:00 Test Item Value Reference Range Interpretation Comments UA Blood (test code = Negative (06/25/17 1:23 UA Blood) PM) [facility] [id number] 18:23:00 Test Item Value Reference Range Interpretation Comments UA Turbidity (test code = Clear (06/25/17 1:23 UA Turbidity) PM) [facility] [id number] 18:23:00 Test Item Value Reference Range Interpretation Comments UA Color (test code = Yellow *NA*(06/25/17 1:23 UA Color) PM) [facility] [id number] 18:23:00 Test Item Value Reference Range Interpretation Comments UA Spec Grav (test code = UA Spec 1.022 1 Grav) [facility] [id number] 18:23:00 Test Item Value Reference Range Interpretation Comments UA Protein (test code = UA Protein) 20 mg/dL [facility] [id number] 18:23:00 Test Item Value Reference Range Interpretation Comments UA pH (test code = UA pH) 5.5 1 5.0-8.0 [facility] [id number] 18:23:00 Test Item Value Reference Range Interpretation Comments UA Glucose (test code = UA Glucose) 70 mg/dL [facility] [id number] 17:07:00 Test Item Value Reference Range Interpretation Comments Troponin-I (test code no gt See_Comment [Auto mated message] The = Troponin-I) system which g enerated this result transmit yanely reference range : <=0.40. The reference r matthieu was not used to interpr et this result as brielle l/abnormal. [facility] [id number] 17:07:00 Test Item Value Reference Range Interpretation Comments BNP (test code = BNP) 5 [facility] [id number] 17:07:00 Test Item Value Reference Range Interpretation Comments Troponin-T (test code no gt See_Comment [Auto mated message] The = Troponin-T) system which g enerated this result transmit yanely reference range : <=0.100. The reference r matthieu was not used to interpr et this result as brielle l/abnormal. [facility] [id number] 17:07:00 Test Item Value Reference Range Interpretation Comments D-Dimer (test code = D-Dimer) 0.27 [facility] [id number] 17:07:00 Test Item Value Reference Range Interpretation Comments HIV Ag/Ab 4th Gen Negative *NA*(06/25/17 (test code = HIV 12:07 PM) Ag/Ab 4th Gen) [facility] [id number] 17:07:00 Test Item Value Reference Range Interpretation Comments Treponemal Ab (test code Non Reactive = Treponemal Ab) *NA*(06/25/17 12:07 PM) [facility] ResourcesPOET TechnologiesCHEM [id number] 13:42:00 Test Item Value Reference Range Interpretation Comments eGFR (test code = eGFR) 104 [facility]Med[facility] Bios[facility] [id number] 13:42:00 Test Item Value Reference Range Interpretation Comments Sodium Lvl (test code = Sodium Lvl) 141 135-145 [facility] [id number] 13:42:00 Test Item Value Reference Range Interpretation Comments Potassium Lvl (test code = Potassium 4.1 3.5-5.1 Lvl) [facility]2018-04-08 13:42:00 Test Item Value Reference Range Interpretation Comments Chloride Lvl (test code = Chloride Lvl) 102 95-109 [facility]2018-04-08 13:42:00 Test Item Value Reference Range Interpretation Comments CO2 (test code = CO2) 24 24-32 [facility]2018-04-08 13:42:00 Test Item Value Reference Range Interpretation Comments AST (test code = AST) 48 See_Comment [Auto mated message] The system which ge nerated this result transmit yanely reference range : <=37. The reference range was not used to interpr et this result as brielle l/abnormal. [facility]2018-04-08 13:42:00 Test Item Value Reference Range Interpretation Comments Albumin Lvl (test code = Albumin Lvl) 3.2 3.5-5.0 [facility]2018-04-08 13:42:00 Test Item Value Reference Range Interpretation Comments ALT (test code = ALT) 54 See_Comment [Auto mated message] The system which ge nerated this result transmit yanely reference range : <=65. The reference range was not used to interpr et this result as brielle l/abnormal. [facility]2018-04-08 13:42:00 Test Item Value Reference Range Interpretation Comments Total Protein (test code = Total 7.6 6.4-8.4 Protein) [facility]2018-04-08 13:42:00 Test Item Value Reference Range Interpretation Comments Calcium Lvl (test code = Calcium Lvl) 8.3 8.5-10.5 [facility]2018-04-08 13:42:00 Test Item Value Reference Range Interpretation Comments Bili Total (test code = Bili Total) 0.3 0.2-1.3 [facility]2018-04-08 13:42:00 Test Item Value Reference Range Interpretation Comments Alk Phos (test code = Alk Phos) 106 39-136 [facility]2018-04-08 13:42:00 Test Item Value Reference Range Interpretation Comments Glucose Lvl (test code = Glucose Lvl) 259 70-99 [facility]2018-04-08 13:42:00 Test Item Value Reference Range Interpretation Comments Creatinine Lvl (test code = Creatinine 0.87 0.50-1.40 Lvl) [facility]2018-04-08 13:42:00 Test Item Value Reference Range Interpretation Comments BUN (test code = BUN) 11 7-22 [facility]2018-04-08 13:42:00 Test Item Value Reference Range Interpretation Comments AGAP (test code = AGAP) 19.1 10.0-20.0 [facility]2018-04-08 13:42:00 Test Item Value Reference Range Interpretation Comments A/G Ratio (test code = A/G Ratio) 0.7 1 0.7-1.6 [facility]2018-04-08 13:42:00 Test Item Value Reference Range Interpretation Comments Globulin (test code = Globulin) 4.4 2.7-4.2 [facility]2018-04-08 13:42:00 Test Item Value Reference Range Interpretation Comments B/C Ratio (test code = B/C Ratio) 13 6-25 [facility] [id number] 13:42:00 Test Item Value Reference Range Interpretation Comments Hgb (test code = Hgb) 14.6 14.0-18.0 [facility] [id number] 13:42:00 Test Item Value Reference Range Interpretation Comments MCV (test code = MCV) 77.8 80.0-94.0 [facility] [id number] 13:42:00 Test Item Value Reference Range Interpretation Comments Hct (test code = Hct) 45.1 42.0-54.0 [facility] [id number] 13:42:00 Test Item Value Reference Range Interpretation Comments MPV (test code = MPV) 9.2 7.4-10.4 [facility] [id number] 13:42:00 Test Item Value Reference Range Interpretation Comments MCHC (test code = MCHC) 32.4 32.0-36.0 [facility] [id number] 13:42:00 Test Item Value Reference Range Interpretation Comments MCH (test code = MCH) 25.2 pg 27.0-31.0 [facility] CampusNvlaslsOXJAKITGJX6975-06-11 13:42:00 Test Item Value Reference Range Interpretation Comments RBC (test code = RBC) 5.80 4.70-6.10 [facility] [id number] 13:42:00 Test Item Value Reference Range Interpretation Comments WBC (test code = WBC) 13.2 3.7-10.4 [facility] [id number] 13:42:00 Test Item Value Reference Range Interpretation Comments RDW (test code = RDW) 17.6 11.5-14.5 [facility] CampusBqexubbAUBETIUSIX8538-16-17 13:42:00 Test Item Value Reference Range Interpretation Comments Platelet (test code = Platelet) 234 133-450 [facility] [id number] 13:42:00 Test Item Value Reference Range Interpretation Comments Hypochrom (test code = 1+ (06/24/17 8:42 AM) Hypochrom) [facility] CampusBbdonenDSLQWQCRGU9702-30-73 13:42:00 Test Item Value Reference Range Interpretation Comments Large Plt (test code = Large Plt) Slight [facility] C[id number] 13:42:00 Test Item Value Reference Range Interpretation Comments Anisocyte (test code = 1+ *ABN*(06/24/17 8:42 Anisocyte) AM) [facility] [id number] 13:42:00 Test Item Value Reference Range Interpretation Comments Atypical Lymphs (test code = Atypical 0.0 Lymphs) [facility] CampusOokcumvRQKJUTUYVI3225-36-08 13:42:00 Test Item Value Reference Range Interpretation Comments Microcyte (test code = 1+ *ABN*(06/24/17 8:42 Microcyte) AM) [facility] [id number] 13:42:00 Test Item Value Reference Range Interpretation Comments Eosinophils (test code = 3.0 See_Comment [A utomated message] The Eosinophils) system which ge nerated this result tra nsmitted reference range : <=4.0. The reference r matthieu was not used to int erpret this result as normal/abnormal . [facility] [id number] 13:42:00 Test Item Value Reference Range Interpretation Comments Monocytes (test code = Monocytes) 7.0 2.0-12.0 [facility] [id number] 13:42:00 Test Item Value Reference Range Interpretation Comments Segs-Bands # (test code = Segs-Bands #) 9.6 1.5-8.1 [facility] CampusXmubbtvXYUKPTXKRX8356-37-43 13:42:00 Test Item Value Reference Range Interpretation Comments Lymphocytes # (test code = Lymphocytes 2.2 1.0-5.5 #) [facility] CampusFeksfmvGVNMHJCNIX0663-12-56 13:42:00 Test Item Value Reference Range Interpretation Comments Bands (test code = 1.0 See_Comment [Automat ed message] The Bands) system which ge nerated this result transmit yanely reference range : <=11.0. The reference r matthieu was not used to interpr et this result as brielle l/abnormal. [facility] CampusWbehlrgSXCILRERFT1855-13-15 13:42:00 Test Item Value Reference Range Interpretation Comments Segs (test code = Segs) 72.0 45.0-75.0 [facility] CampusFtpoicbHJYSEOKQTR4437-05-33 13:42:00 Test Item Value Reference Range Interpretation Comments Lymphocytes (test code = Lymphocytes) 17.0 20.0-40.0 [facility] Camp[id number] 13:42:00 Test Item Value Reference Range Interpretation Comments Eosinophils # (test code 0.4 See_Comment [A utomated message] The = Eosinophils #) system whic h generated this result tra nsmitted reference range : <=0.5. The reference r matthieu was not used to int erpret this result as normal/abnormal . [facility] CampusZlestuqFQEHONWIGY2740-20-47 13:42:00 Test Item Value Reference Range Interpretation Comments Monocytes # (test code 0.9 See_Comment [Aut omated message] The = Monocytes #) system which generated this result tra nsmitted reference range : <=0.8. The reference r matthieu was not used to int erpret this result as normal/abnormal . [facility]QxckjilIWTQTGPULL9489-27-76 05:41:00 Test Item Value Reference Range Interpretation Comments Treponemal Ab (test code Non Reactive = Treponemal Ab) *NA*(06/24/17 12:41 AM) [facility] SouthRiaeyfsYFXWFX8031-00-07 05:41:00 Test Item Value Reference Range Interpretation Comments CHD Risk (test code = CHD Risk) 6.88 1 4.00-7.30 [facility]JgmvmygSUCEUO4007-69-25 05:41:00 Test Item Value Reference Range Interpretation Comments LDL (Calculated) (test code = LDL 80 (Calculated)) [facility] SouthPwaxkxtJSGVGC5588-29-70 05:41:00 Test Item Value Reference Range Interpretation Comments VLDL (test code = VLDL) 67 1 [facility] SouthEkvazyoOAUPUZ4787-72-18 05:41:00 Test Item Value Reference Range Interpretation Comments HDL (test code = HDL) 25 [facility] ResourcesKjeomcwZQUQWM1392-34-06 05:41:00 Test Item Value Reference Range Interpretation Comments Chol (test code = Chol) 172 [facility] ResourcesDrdwtgpVIWLVM2872-41-13 05:41:00 Test Item Value Reference Range Interpretation Comments Trig (test code = Trig) 335 [facility] [id number] 05:41:00 Test Item Value Reference Range Interpretation Comments Hgb A1C (test code = Hgb A1C) 8.6 [facility] [id number] 10:05:00 Test Item Value Reference Range Interpretation Comments Troponin-I (test code 0.23 See_Comment [Auto mated message] The = Troponin-I) system which g enerated this result transmit yanely reference range : <=0.40. The reference r matthieu was not used to interpr et this result as brielle l/abnormal. [facility] [employer] [id number] 10:05:00 Test Item Value Reference Range Interpretation Comments Magnesium Lvl (test code = Magnesium 1.9 1.8-2.4 Lvl) [facility] ResourcesUDeserve [facility] [id number] 10:05:00 Test Item Value Reference Range Interpretation Comments Glucose Lvl (test code = Glucose Lvl) 131 70-99 [facility] [employer] [id number] 10:05:00 Test Item Value Reference Range Interpretation Comments Potassium Lvl (test code = Potassium 3.1 3.5-5.1 Lvl) [facility] [employer] [id number] 10:05:00 Test Item Value Reference Range Interpretation Comments Sodium Lvl (test code = Sodium Lvl) 136 135-145 [facility] ResourcesU[facility] [id number] 10:05:00 Test Item Value Reference Range Interpretation Comments Creatinine Lvl (test code = Creatinine 0.68 0.50-1.40 Lvl) [facility] [employer] [id number] 10:05:00 Test Item Value Reference Range Interpretation Comments BUN (test code = BUN) 8 7-22 [facility]2017-09-30 10:05:00 Test Item Value Reference Range Interpretation Comments Chloride Lvl (test code = Chloride Lvl) 101 95-109 [facility]2017-09-30 10:05:00 Test Item Value Reference Range Interpretation Comments Calcium Lvl (test code = Calcium Lvl) 8.5 8.5-10.5 [facility]2017-09-30 10:05:00 Test Item Value Reference Range Interpretation Comments CO2 (test code = CO2) 26 24-32 [facility]2017-09-30 10:05:00 Test Item Value Reference Range Interpretation Comments AGAP (test code = AGAP) 12.1 10.0-20.0 [facility]2017-09-30 10:05:00 Test Item Value Reference Range Interpretation Comments eGFR (test code = eGFR) 116 [facility]2017-09-30 09:15:00 Test Item Value Reference Range Interpretation Comments Lactic Acid Lvl (test code = Lactic 0.7 0.5-2.2 Acid Lvl) [facility] [id number] 06:47:00 Test Item Value Reference Range Interpretation Comments UA Glucose (test code Negative (12/16/16 1:47 = UA Glucose) AM) [facility] AND [id number] 06:47:00 Test Item Value Reference Range Interpretation Comments UA Color (test code = Yellow *NA*(12/16/16 UA Color) 1:47 AM) [facility] AND [id number] 06:47:00 Test Item Value Reference Range Interpretation Comments UA Bili (test code = Negative *NA*(12/16/16 UA Bili) 1:47 AM) [facility] [id number] 06:47:00 Test Item Value Reference Range Interpretation Comments UA Nitrite (test code Negative (12/16/16 1:47 = UA Nitrite) AM) [facility] AND [id number] 06:47:00 Test Item Value Reference Range Interpretation Comments UA Urobilinogen (test code = UA 0.2 0.1-1.0 Urobilinogen) [facility] AND [id number] 06:47:00 Test Item Value Reference Range Interpretation Comments UA Blood (test code = Trace *ABN*(12/16/16 UA Blood) 1:47 AM) [facility] AND [id number] 06:47:00 Test Item Value Reference Range Interpretation Comments UA Turbidity (test code = Clear (12/16/16 1:47 UA Turbidity) AM) [facility] AND [id number] 06:47:00 Test Item Value Reference Range Interpretation Comments UA Protein (test code Negative (12/16/16 1:47 = UA Protein) AM) [facility] [id number] 06:47:00 Test Item Value Reference Range Interpretation Comments UA Spec Grav (test code = UA Spec 1.022 1 Grav) [facility] AND [id number] 06:47:00 Test Item Value Reference Range Interpretation Comments UA Ketones (test code Negative *NA*(12/16/16 = UA Ketones) 1:47 AM) [facility] AND [id number] 06:47:00 Test Item Value Reference Range Interpretation Comments UA pH (test code = UA pH) 6.0 1 5.0-8.0 [facility] AND [id number] 06:47:00 Test Item Value Reference Range Interpretation Comments UA Leuk Est (test Negative (12/16/16 1:47 code = UA Leuk Est) AM) [facility] AND [id number] 06:47:00 Test Item Value Reference Range Interpretation Comments UA RBC (test code = 0-2 /HPF See_Comment [Automa yanely message] The UA RBC) system which ge nerated this result tra nsmitted reference range : <=2. The reference range was not used to interpr et this result as brielle l/abnormal. [facility] AND [id number] 06:47:00 Test Item Value Reference Range Interpretation Comments UA Sq Epi (test code = None Seen (12/16/16 1:47 UA Sq Epi) AM) [facility] AND [id number] 06:47:00 Test Item Value Reference Range Interpretation Comments UA WBC (test code = UA WBC) 0-2 /HPF [facility] AND [id number] 06:47:00 Test Item Value Reference Range Interpretation Comments UA Bacteria (test code = None Seen (12/16/16 UA Bacteria) 1:47 AM) [facility]2017-09-30 01:49:00 Test Item Value Reference Range Interpretation Comments Lipase Lvl (test code = Lipase Lvl) 130 73-393 [facility]2017-09-30 01:49:00 Test Item Value Reference Range Interpretation Comments AST (test code = AST) 23 See_Comment [Auto mated message] The system which ge nerated this result transmit yanely reference range : <=37. The reference range was not used to interpr et this result as brielle l/abnormal. [facility]2017-09-30 01:49:00 Test Item Value Reference Range Interpretation Comments Alk Phos (test code = Alk Phos) 94 39-136 [facility]2017-09-30 01:49:00 Test Item Value Reference Range Interpretation Comments Bili Total (test code = Bili Total) 0.5 0.2-1.3 [facility]2017-09-30 01:49:00 Test Item Value Reference Range Interpretation Comments Bili Direct (test code 0.1 See_Comment [Aut omated message] The = Bili Direct) system which generated this result tra nsmitted reference range : <=0.3. The reference r matthieu was not used to int erpret this result as brielle l/abnormal. [facility]2017-09-30 01:49:00 Test Item Value Reference Range Interpretation Comments Albumin Lvl (test code = Albumin Lvl) 3.6 3.5-5.0 [facility]2017-09-30 01:49:00 Test Item Value Reference Range Interpretation Comments ALT (test code = ALT) 17 See_Comment [Auto mated message] The system which ge nerated this result transmit yanely reference range : <=65. The reference range was not used to interpr et this result as brielle l/abnormal. [facility]2017-09-30 01:49:00 Test Item Value Reference Range Interpretation Comments Total Protein (test code = Total 8.7 6.4-8.4 Protein) [facility]2017-09-30 01:49:00 Test Item Value Reference Range Interpretation Comments A/G Ratio (test code = A/G Ratio) 0.7 0.7-1.6 [facility]2017-09-30 01:49:00 Test Item Value Reference Range Interpretation Comments Bili Indirect (test 0.4 See_Comment [Automa yanely message] The code = Bili Indirect) system which generated this result tra nsmitted reference range : <=1.0. The reference r matthieu was not used to int erpret this result as normal/abnormal . [facility]2017-09-30 01:49:00 Test Item Value Reference Range Interpretation Comments Globulin (test code = Globulin) 5.1 2.7-4.2 [facility]2017-09-30 01:49:00 Test Item Value Reference Range Interpretation Comments Lactic Acid WB (test code = Lactic Acid 1.1 0.5-2.2 WB) [facility]2017-09-30 01:49:00 Test Item Value Reference Range Interpretation Comments eGFR (test code = eGFR) 105 [facility]2017-09-30 01:49:00 Test Item Value Reference Range Interpretation Comments Creatinine Lvl (test code = Creatinine 0.87 0.50-1.40 Lvl) [facility]2017-09-30 01:49:00 Test Item Value Reference Range Interpretation Comments Sodium Lvl (test code = Sodium Lvl) 134 135-145 [facility]2017-09-30 01:49:00 Test Item Value Reference Range Interpretation Comments Chloride Lvl (test code = Chloride Lvl) 100 95-109 [facility]2017-09-30 01:49:00 Test Item Value Reference Range Interpretation Comments Potassium Lvl (test code = Potassium 2.9 3.5-5.1 Lvl) [facility]2017-09-30 01:49:00 Test Item Value Reference Range Interpretation Comments CO2 (test code = CO2) 29 24-32 [facility]2017-09-30 01:49:00 Test Item Value Reference Range Interpretation Comments Calcium Lvl (test code = Calcium Lvl) 8.6 8.5-10.5 [facility]2017-09-30 01:49:00 Test Item Value Reference Range Interpretation Comments AGAP (test code = AGAP) 7.9 10.0-20.0 [facility]2017-09-30 01:49:00 Test Item Value Reference Range Interpretation Comments BUN (test code = BUN) 6 7-22 [facility]2017-09-30 01:49:00 Test Item Value Reference Range Interpretation Comments Glucose Lvl (test code = Glucose Lvl) 107 70-99 [facility] [id number] 01:49:00 Test Item Value Reference Range Interpretation Comments MCH (test code = MCH) 24.2 pg 27.0-31.0 [facility] CampusOnrngfePPKHUKPKCV3101-24-84 01:49:00 Test Item Value Reference Range Interpretation Comments MCV (test code = MCV) 75.5 80.0-94.0 [facility] CampusMvzvugqGIHWJLFQWR5931-79-10 01:49:00 Test Item Value Reference Range Interpretation Comments Hgb (test code = Hgb) 15.3 14.0-18.0 [facility] CampusToffrbtSASVIPLPYG2548-52-86 01:49:00 Test Item Value Reference Range Interpretation Comments Hct (test code = Hct) 47.6 42.0-54.0 [facility] CampusTgksomlZFSSBUIEXT2090-62-13 01:49:00 Test Item Value Reference Range Interpretation Comments WBC (test code = WBC) 12.7 3.7-10.4 [facility] CampusPiaupcfLAAGVNRNGR0900-54-79 01:49:00 Test Item Value Reference Range Interpretation Comments RBC (test code = RBC) 6.31 4.70-6.10 [facility] CampusOlosijiFSATHCSVME5273-84-94 01:49:00 Test Item Value Reference Range Interpretation Comments MPV (test code = MPV) 8.2 7.4-10.4 [facility] CampusFzbpdkeOVRWDQYTHT2717-77-05 01:49:00 Test Item Value Reference Range Interpretation Comments MCHC (test code = MCHC) 32.1 32.0-36.0 [facility] CampusZclazayPNGBACTTBI2348-22-22 01:49:00 Test Item Value Reference Range Interpretation Comments RDW (test code = RDW) 16.4 11.5-14.5 [facility] CampusQxjoyhoLVJXYNQLSX5146-73-73 01:49:00 Test Item Value Reference Range Interpretation Comments Platelet (test code = Platelet) 256 133-450 [facility] CampusGesqqtbCSTUYHLOVE9839-33-80 01:49:00 Test Item Value Reference Range Interpretation Comments Eosinophils (test code = 0.6 See_Comment [A utomated message] The Eosinophils) system which ge nerated this result tra nsmitted reference range : <=4.0. The reference r matthieu was not used to int erpret this result as normal/abnormal . [facility] CampusLbmklmcCGSZKNRZUD1414-04-42 01:49:00 Test Item Value Reference Range Interpretation Comments Basophils (test code = 0.5 See_Comment [Aut omated message] The Basophils) system which ge nerated this result tra nsmitted reference range : <=1.0. The reference r matthieu was not used to int erpret this result as normal/abnormal . [facility] CampusZqdxzehYJIXWVJGMY7527-32-85 01:49:00 Test Item Value Reference Range Interpretation Comments Segs-Bands # (test code = Segs-Bands #) 9.3 1.5-8.1 [facility] CampusTxqekykTQQEKKXJIR1216-91-74 01:49:00 Test Item Value Reference Range Interpretation Comments Lymphocytes # (test code = Lymphocytes 1.9 1.0-5.5 #) [facility] CampusHwiljzzFUDBXTFRUD5209-46-42 01:49:00 Test Item Value Reference Range Interpretation Comments Microcyte (test code = 1+ *ABN*(12/15/16 Microcyte) 8:49 PM) [facility] CampusBoxkkpiWTOZFXPQWW3857-84-82 01:49:00 Test Item Value Reference Range Interpretation Comments Monocytes # (test code 1.3 See_Comment [Aut omated message] The = Monocytes #) system which generated this result tra nsmitted reference range : <=0.8. The reference r matthieu was not used to int erpret this result as normal/abnormal . [facility] CampusTaizvkrYIVICTCXSM1828-02-44 01:49:00 Test Item Value Reference Range Interpretation Comments Eosinophils # (test code 0.1 See_Comment [A utomated message] The = Eosinophils #) system whic h generated this result tra nsmitted reference range : <=0.5. The reference r matthieu was not used to int erpret this result as normal/abnormal . [facility] CampusFqmfbbwHJBSDJLGJK5493-00-47 01:49:00 Test Item Value Reference Range Interpretation Comments Basophils # (test code 0.1 See_Comment [Aut omated message] The = Basophils #) system which generated this result tra nsmitted reference range : <=0.2. The reference r matthieu was not used to int erpret this result as normal/abnormal . [facility] CampusWywxpsbPLGLNHFVJB4386-53-97 01:49:00 Test Item Value Reference Range Interpretation Comments Monocytes (test code = Monocytes) 10.4 2.0-12.0 [facility] CampusXdchbrcDLXDTUIGGB6567-54-82 01:49:00 Test Item Value Reference Range Interpretation Comments Segs (test code = Segs) 73.4 45.0-75.0 [facility] CampusXlpdmppIBYUXQKWKL6465-34-05 01:49:00 Test Item Value Reference Range Interpretation Comments Lymphocytes (test code = Lymphocytes) 15.1 20.0-40.0 [facility]2017-04-24 09:44:00 Test Item Value Reference Range Interpretation Comments eGFR (test code = eGFR) 128 [facility]2017-04-24 09:44:00 Test Item Value Reference Range Interpretation Comments Alk Phos (test code = Alk Phos) 87 39-136 [facility]2017-04-24 09:44:00 Test Item Value Reference Range Interpretation Comments Glucose Lvl (test code = Glucose Lvl) 55 70-99 [facility]2017-04-24 09:44:00 Test Item Value Reference Range Interpretation Comments AGAP (test code = AGAP) 14.3 10.0-20.0 [facility]2017-04-24 09:44:00 Test Item Value Reference Range Interpretation Comments Bili Total (test code = Bili Total) 0.2 0.2-1.3 [facility]2017-04-24 09:44:00 Test Item Value Reference Range Interpretation Comments B/C Ratio (test code = B/C Ratio) 19 6-25 [facility]2017-04-24 09:44:00 Test Item Value Reference Range Interpretation Comments ALT (test code = ALT) 43 See_Comment [Auto mated message] The system which ge nerated this result transmit yanely reference range : <=65. The reference range was not used to interpr et this result as brielle l/abnormal. [place] 400777-04-24 09:44:00 Test Item Value Reference Range Interpretation Comments AST (test code = AST) 34 See_Comment [Auto mated message] The system which ge nerated this result transmit yanely reference range : <=37. The reference range was not used to interpr et this result as brielle l/abnormal. [facility]2017-04-24 09:44:00 Test Item Value Reference Range Interpretation Comments Albumin Lvl (test code = Albumin Lvl) 3.1 3.5-5.0 [facility]2017-04-24 09:44:00 Test Item Value Reference Range Interpretation Comments Globulin (test code = Globulin) 4.6 2.7-4.2 [facility]2017-04-24 09:44:00 Test Item Value Reference Range Interpretation Comments A/G Ratio (test code = A/G Ratio) 0.7 0.7-1.6 [facility]2017-04-24 09:44:00 Test Item Value Reference Range Interpretation Comments BUN (test code = BUN) 10 - [facility]2017-04-24 09:44:00 Test Item Value Reference Range Interpretation Comments Potassium Lvl (test code = Potassium 4.3 3.5-5.1 Lvl) [facility]2017-04-24 09:44:00 Test Item Value Reference Range Interpretation Comments Sodium Lvl (test code = Sodium Lvl) 136 135-145 [facility]2017-04-24 09:44:00 Test Item Value Reference Range Interpretation Comments Creatinine Lvl (test code = Creatinine 0.54 0.50-1.40 Lvl) [facility]2017-04-24 09:44:00 Test Item Value Reference Range Interpretation Comments Calcium Lvl (test code = Calcium Lvl) 8.9 8.5-10.5 [facility]2017-04-24 09:44:00 Test Item Value Reference Range Interpretation Comments Total Protein (test code = Total 7.7 6.4-8.4 Protein) [facility]2017-04-24 09:44:00 Test Item Value Reference Range Interpretation Comments CO2 (test code = CO2) -32 [facility]2017-04-24 09:44:00 Test Item Value Reference Range Interpretation Comments Chloride Lvl (test code = Chloride Lvl) 104 95-109 [facility]maWsoibyeEXYTCJIXUY9482-52-34 09:44:00 Test Item Value Reference Range Interpretation Comments MPV (test code = MPV) 8.4 7.4-10.4 [facility] CampusAcdqspuRRPZUHUWTP8917-22-08 09:44:00 Test Item Value Reference Range Interpretation Comments Platelet (test code = Platelet) 310 133-450 [facility] CampusMumgooaFMHJFXFMLX3189-67-42 09:44:00 Test Item Value Reference Range Interpretation Comments RDW (test code = RDW) 16.0 11.5-14.5 [facility] CampusHighyqxBFAGZDQHWT8800-99-51 09:44:00 Test Item Value Reference Range Interpretation Comments MCHC (test code = MCHC) 33.5 32.0-36.0 [facility] CampusLbgsujiSBXDYVBSAZ7081-82-91 09:44:00 Test Item Value Reference Range Interpretation Comments MCH (test code = MCH) 25.0 pg 27.0-31.0 [facility] CampusScxphcrJABKKYRMHM7202-84-57 09:44:00 Test Item Value Reference Range Interpretation Comments WBC (test code = WBC) 9.9 3.7-10.4 [facility] CampusBeoqscbXGZUVZDLZL0368-72-33 09:44:00 Test Item Value Reference Range Interpretation Comments Hgb (test code = Hgb) 13.6 14.0-18.0 [facility] CampusGvjjcvwRLRJJMVAXY3076-82-52 09:44:00 Test Item Value Reference Range Interpretation Comments RBC (test code = RBC) 5.44 4.70-6.10 [facility] CampusTjtjmuyRMIYDMWTBA3152-83-66 09:44:00 Test Item Value Reference Range Interpretation Comments MCV (test code = MCV) 74.6 80.0-94.0 [facility] CampusUxywujpAXOQYQPOQL2272-51-48 09:44:00 Test Item Value Reference Range Interpretation Comments Hct (test code = Hct) 40.6 42.0-54.0 [facility] CampusHuqtdxvLWHFIHSTXE7612-20-96 09:44:00 Test Item Value Reference Range Interpretation Comments Eosinophils (test code = 2.0 See_Comment [A utomated message] The Eosinophils) system which ge nerated this result tra nsmitted reference range : <=4.0. The reference r matthieu was not used to int erpret this result as normal/abnormal . [facility] CampusOdqpwhpERGPYASKUE7791-47-61 09:44:00 Test Item Value Reference Range Interpretation Comments Basophils (test code = 0.5 See_Comment [Aut omated message] The Basophils) system which ge nerated this result tra nsmitted reference range : <=1.0. The reference r matthieu was not used to int erpret this result as normal/abnormal . [facility] CampusXjtrdtjOQVFVQCMNS7659-27-69 09:44:00 Test Item Value Reference Range Interpretation Comments Monocytes (test code = Monocytes) 7.9 2.0-12.0 [facility] CampusGmbwvhxIQSHXGWPWP8662-55-30 09:44:00 Test Item Value Reference Range Interpretation Comments Eosinophils # (test code 0.2 See_Comment [A utomated message] The = Eosinophils #) system whic h generated this result tra nsmitted reference range : <=0.5. The reference r matthieu was not used to int erpret this result as normal/abnormal . [facility] CampusSptxvwjEOALPJOFDV6101-27-76 09:44:00 Test Item Value Reference Range Interpretation Comments Basophils # (test code 0.0 See_Comment [Aut omated message] The = Basophils #) system which generated this result tra nsmitted reference range : <=0.2. The reference r matthieu was not used to int erpret this result as normal/abnormal . [facility] CampusGpmsbwfNBDEJBYPCZ5734-32-99 09:44:00 Test Item Value Reference Range Interpretation Comments Microcyte (test code = 2+ *ABN*(07/10/16 Microcyte) 4:44 AM) [facility] CampusJmtcnsjDWMFKEZTSP4950-32-13 09:44:00 Test Item Value Reference Range Interpretation Comments Lymphocytes # (test code = Lymphocytes 2.9 1.0-5.5 #) [facility] CampusCepctvtUKGOVNZZHO8724-79-17 09:44:00 Test Item Value Reference Range Interpretation Comments Monocytes # (test code 0.8 See_Comment [Aut omated message] The = Monocytes #) system which generated this result tra nsmitted reference range : <=0.8. The reference r matthieu was not used to int erpret this result as normal/abnormal . [facility] CampusYipsdcpNFKRTJLLAU0933-76-33 09:44:00 Test Item Value Reference Range Interpretation Comments Segs-Bands # (test code = Segs-Bands #) 6.0 1.5-8.1 [facility] CampusUmyoxopSCEGKCZPUY2403-04-51 09:44:00 Test Item Value Reference Range Interpretation Comments Segs (test code = Segs) 60.7 45.0-75.0 [facility] CampusQyfdtmwTKTKVMZVMZ2732-09-78 09:44:00 Test Item Value Reference Range Interpretation Comments Lymphocytes (test code = Lymphocytes) 28.9 20.0-40.0 [facility] [id number] 18:36:00 Test Item Value Reference Range Interpretation Comments UA Glucose (test code Negative (07/04/16 1:36 = UA Glucose) PM) [facility] [id number] 18:36:00 Test Item Value Reference Range Interpretation Comments UA pH (test code = UA pH) 6.0 1 5.0-8.0 [facility] [id number] 18:36:00 Test Item Value Reference Range Interpretation Comments UA Bili (test code = Negative *NA*(07/04/16 UA Bili) 1:36 PM) [facility] [id number] 18:36:00 Test Item Value Reference Range Interpretation Comments UA Blood (test code = Negative (07/04/16 1:36 UA Blood) PM) [facility] [id number] 18:36:00 Test Item Value Reference Range Interpretation Comments UA Ketones (test code = Trace *ABN*(07/04/16 UA Ketones) 1:36 PM) [facility] [id number] 18:36:00 Test Item Value Reference Range Interpretation Comments UA Protein (test code = Trace *ABN*(07/04/16 UA Protein) 1:36 PM) [facility] [id number] 18:36:00 Test Item Value Reference Range Interpretation Comments UA Urobilinogen (test code = UA 0.2 0.1-1.0 Urobilinogen) [facility] [id number] 18:36:00 Test Item Value Reference Range Interpretation Comments UA Leuk Est (test Negative (07/04/16 1:36 code = UA Leuk Est) PM) [facility] [id number] 18:36:00 Test Item Value Reference Range Interpretation Comments UA Nitrite (test code Negative (07/04/16 1:36 = UA Nitrite) PM) [facility] [id number] 18:36:00 Test Item Value Reference Range Interpretation Comments UA Turbidity (test code = Clear (07/04/16 1:36 [facility] Turbidity) PM) [facility] [id number] 18:36:00 Test Item Value Reference Range Interpretation Comments UA Spec Grav (test code = UA Spec 1.020 1 Grav) [facility] [id number] 18:36:00 Test Item Value Reference Range Interpretation Comments UA Color (test code = Yellow *NA*(07/04/16 UA Color) 1:36 PM) [facility] [id number] 18:36:00 Test Item Value Reference Range Interpretation Comments UA Sperm (test code = UA Occasional /HPF Sperm) [facility] [id number] 18:36:00 Test Item Value Reference Range Interpretation Comments UA Mucus (test code = UA Mucus) Few /LPF [facility] [id number] 18:36:00 Test Item Value Reference Range Interpretation Comments UA Bacteria (test code = UA Occasional /HPF Bacteria) [facility] [id number] 18:36:00 Test Item Value Reference Range Interpretation Comments UA Sq Epi (test code = None Seen (07/04/16 1:36 UA Sq Epi) PM) [facility] [employer] [id number] 09:28:00 Test Item Value Reference Range Interpretation Comments LDH (test code = LDH) 184 98-192 [facility] [employer] [id number] 09:28:00 Test Item Value Reference Range Interpretation Comments Vitamin D, 25-OH, Total (test code = 13 30-100 Vitamin D, 25-OH, Total) [facility] ResourcesRpktxctZNPYSOKJIAOS5784-88-97 09:28:00 Test Item Value Reference Range Interpretation Comments AGAP (test code = AGAP) 11.6 10.0-20.0 [facility] ResourcesFiyjwvbKGWYWABCTXJZ3716-60-90 09:28:00 Test Item Value Reference Range Interpretation Comments Globulin (test code = Globulin) 4.4 2.7-4.2 [facility] XvehmzgSMAGRQMIWCZY5060-38-79 09:28:00 Test Item Value Reference Range Interpretation Comments A/G Ratio (test code = A/G Ratio) 0.7 0.7-1.6 [facility] ResourcesQfewuuxXSSVTPMIQGCB3507-82-73 09:28:00 Test Item Value Reference Range Interpretation Comments B/C Ratio (test code = B/C Ratio) 16 6-25 [facility]cdowqxQFWXFOGZNESJ4506-94-23 09:28:00 Test Item Value Reference Range Interpretation Comments eGFR (test code = eGFR) 126 [facility]UwlqnzrOJNTEXRQVEGU5553-56-87 09:28:00 Test Item Value Reference Range Interpretation Comments Sodium Lvl (test code = Sodium Lvl) 136 135-145 [facility] SystemGzponklUUJIAHYMZKRP8257-24-35 09:28:00 Test Item Value Reference Range Interpretation Comments BUN (test code = BUN) 9 7-22 [facility] SystemSwqxpirWTEVZOBGSQQF9718-19-55 09:28:00 Test Item Value Reference Range Interpretation Comments Potassium Lvl (test code = Potassium 3.6 3.5-5.1 Lvl) [facility] SystemUtnuqkdJLQERBAYHKVH5562-85-28 09:28:00 Test Item Value Reference Range Interpretation Comments Creatinine Lvl (test code = Creatinine 0.56 0.50-1.40 Lvl) [facility] SystemSdcrgcrLOCEFMLSUUPT1250-94-16 09:28:00 Test Item Value Reference Range Interpretation Comments Glucose Lvl (test code = Glucose Lvl) 113 70-99 [facility] SystemYqzjqdbAKHXQFOGIIFR8092-49-05 09:28:00 Test Item Value Reference Range Interpretation Comments Alk Phos (test code = Alk Phos) 96 39-136 [facility] SystemHqgkjdzOSESHHSPOFVY2145-91-36 09:28:00 Test Item Value Reference Range Interpretation Comments Bili Total (test code = Bili Total) 0.3 0.2-1.3 [facility] SystemYkpfxszRMPCTUQFVJZM0698-45-48 09:28:00 Test Item Value Reference Range Interpretation Comments Chloride Lvl (test code = Chloride Lvl) 99 95-109 [facility] SystemHpmikqtJDSMNMRKQTQX0402-30-26 09:28:00 Test Item Value Reference Range Interpretation Comments AST (test code = AST) 35 See_Comment [Auto mated message] The system which ge nerated this result transmit yanely reference range : <=37. The reference range was not used to interpr et this result as brielle l/abnormal. [facility] SystemAqihkqoMNZYIQAZVCIX9826-16-72 09:28:00 Test Item Value Reference Range Interpretation Comments ALT (test code = ALT) 45 See_Comment [Auto mated message] The system which ge nerated this result transmit yanely reference range : <=65. The reference range was not used to interpr et this result as brielle l/abnormal. [facility] SystemDqxnddtRBAELRHSLPJW4409-64-05 09:28:00 Test Item Value Reference Range Interpretation Comments CO2 (test code = CO2) 29 24-32 [facility] SystemQvydofsNZXYVZWZWAKA8497-71-27 09:28:00 Test Item Value Reference Range Interpretation Comments Albumin Lvl (test code = Albumin Lvl) 3.1 3.5-5.0 [facility] SystemTmqtjgdDRTQVBQVPMVL3396-14-58 09:28:00 Test Item Value Reference Range Interpretation Comments Calcium Lvl (test code = Calcium Lvl) 8.6 8.5-10.5 [facility] SystemJecthykNXKXJVWWKGUI6177-91-49 09:28:00 Test Item Value Reference Range Interpretation Comments Total Protein (test code = Total 7.5 6.4-8.4 Protein) [facility] CampusFvnagrpEDUMHSMAXT1157-26-78 09:28:00 Test Item Value Reference Range Interpretation Comments RDW (test code = RDW) 16.2 11.5-14.5 [facility] CampusTspevejMYCGLFRLND8169-06-98 09:28:00 Test Item Value Reference Range Interpretation Comments MCV (test code = MCV) 75.0 80.0-94.0 [facility] CampusMtprtggSRRLMJMDOV4012-16-00 09:28:00 Test Item Value Reference Range Interpretation Comments MCH (test code = MCH) 24.9 pg 27.0-31.0 [facility] CampusLyisnwfHVFXEIYMMR4103-43-23 09:28:00 Test Item Value Reference Range Interpretation Comments MCHC (test code = MCHC) 33.2 32.0-36.0 [facility] CampusNajjzyxIZHAIVPOJC0778-86-92 09:28:00 Test Item Value Reference Range Interpretation Comments Platelet (test code = Platelet) 216 133-450 [facility] CampusChtmflfOGYZMXBOJI3852-06-53 09:28:00 Test Item Value Reference Range Interpretation Comments MPV (test code = MPV) 9.5 7.4-10.4 [facility] CampusNvzrsavGDNCMNVRAL9077-47-70 09:28:00 Test Item Value Reference Range Interpretation Comments RBC (test code = RBC) 5.17 4.70-6.10 [facility] CampusYwnppzfQNSNEHEAHC4217-71-04 09:28:00 Test Item Value Reference Range Interpretation Comments Hgb (test code = Hgb) 12.9 14.0-18.0 [facility] CampusGakaofyOSOLJFMYMS5137-90-80 09:28:00 Test Item Value Reference Range Interpretation Comments Hct (test code = Hct) 38.8 42.0-54.0 [facility] CampusBhxfupcGOPVFYIUCT6323-51-29 09:28:00 Test Item Value Reference Range Interpretation Comments WBC (test code = WBC) 8.9 3.7-10.4 [facility] CampusZyvdrsmDJWCQDWJWN9101-51-71 09:28:00 Test Item Value Reference Range Interpretation Comments Microcyte (test code = 2+ *ABN*(07/03/16 Microcyte) 4:28 AM) [facility] CampusOyczfkqPEIFSAOYSO7390-58-11 09:28:00 Test Item Value Reference Range Interpretation Comments Basophils # (test code 0.1 See_Comment [Aut omated message] The = Basophils #) system which generated this result tra nsmitted reference range : <=0.2. The reference r matthieu was not used to int erpret this result as normal/abnormal . [facility] CampusJtbobxxJBXHPDAIIF8214-86-35 09:28:00 Test Item Value Reference Range Interpretation Comments Eosinophils # (test code 0.5 See_Comment [A utomated message] The = Eosinophils #) system whic h generated this result tra nsmitted reference range : <=0.5. The reference r matthieu was not used to int erpret this result as normal/abnormal . [facility] CampusHhiqxcmEISKZPRCDI0927-75-60 09:28:00 Test Item Value Reference Range Interpretation Comments Basophils (test code = 0.6 See_Comment [Aut omated message] The Basophils) system which ge nerated this result tra nsmitted reference range : <=1.0. The reference r matthieu was not used to int erpret this result as normal/abnormal . [facility] CampusHteakgrAWZJGASIZA3258-17-37 09:28:00 Test Item Value Reference Range Interpretation Comments Lymphocytes # (test code = Lymphocytes 2.1 1.0-5.5 #) [facility] CampusKiqpkqySBZTSNDIXC2390-21-77 09:28:00 Test Item Value Reference Range Interpretation Comments Segs-Bands # (test code = Segs-Bands #) 5.2 1.5-8.1 [facility] CampusXkjfhszKYJYYGECQA8437-74-79 09:28:00 Test Item Value Reference Range Interpretation Comments Monocytes # (test code 1.0 See_Comment [Aut omated message] The = Monocytes #) system which generated this result tra nsmitted reference range : <=0.8. The reference r matthieu was not used to int erpret this result as normal/abnormal . [facility] CampusFcmxiahAZFJRCOMSU6860-61-61 09:28:00 Test Item Value Reference Range Interpretation Comments Eosinophils (test code = 5.2 See_Comment [A utomated message] The Eosinophils) system which ge nerated this result tra nsmitted reference range : <=4.0. The reference r matthieu was not used to int erpret this result as normal/abnormal . [facility] CampusCjcbbdrMKSIMKZIJZ1702-48-87 09:28:00 Test Item Value Reference Range Interpretation Comments Segs (test code = Segs) 59.6 45.0-75.0 [facility] CampusIjkrroqVPPHFKDVFW0520-20-06 09:28:00 Test Item Value Reference Range Interpretation Comments Lymphocytes (test code = Lymphocytes) 23.1 20.0-40.0 [facility] CampusJsgfkbwAIBCRMXTNA2146-47-85 09:28:00 Test Item Value Reference Range Interpretation Comments Monocytes (test code = Monocytes) 11.5 2.0-12.0 [facility]2017-04-10 10:40:00 Test Item Value Reference Range Interpretation Comments A/G Ratio (test code = A/G Ratio) 0.7 0.7-1.6 [facility]2017-04-10 10:40:00 Test Item Value Reference Range Interpretation Comments AGAP (test code = AGAP) 11.7 10.0-20.0 [facility]2017-04-10 10:40:00 Test Item Value Reference Range Interpretation Comments B/C Ratio (test code = B/C Ratio) 17 6-25 [facility]2017-04-10 10:40:00 Test Item Value Reference Range Interpretation Comments Globulin (test code = Globulin) 4.5 2.7-4.2 [facility]2017-04-10 10:40:00 Test Item Value Reference Range Interpretation Comments eGFR (test code = eGFR) 124 [facility]2017-04-10 10:40:00 Test Item Value Reference Range Interpretation Comments BUN (test code = BUN) 10 7-22 [facility]2017-04-10 10:40:00 Test Item Value Reference Range Interpretation Comments Glucose Lvl (test code = Glucose Lvl) 113 70-99 [facility]2017-04-10 10:40:00 Test Item Value Reference Range Interpretation Comments Bili Total (test code = Bili Total) 0.3 0.2-1.3 [facility]2017-04-10 10:40:00 Test Item Value Reference Range Interpretation Comments Alk Phos (test code = Alk Phos) 95 39-136 [facility]2017-04-10 10:40:00 Test Item Value Reference Range Interpretation Comments Chloride Lvl (test code = Chloride Lvl) 101 95-109 [facility]2017-04-10 10:40:00 Test Item Value Reference Range Interpretation Comments Calcium Lvl (test code = Calcium Lvl) 8.9 8.5-10.5 [facility]2017-04-10 10:40:00 Test Item Value Reference Range Interpretation Comments AST (test code = AST) 40 See_Comment [Auto mated message] The system which ge nerated this result transmit yanely reference range : <=37. The reference range was not used to interpr et this result as brielle l/abnormal. [facility]2017-04-10 10:40:00 Test Item Value Reference Range Interpretation Comments ALT (test code = ALT) 46 See_Comment [Auto mated message] The system which ge nerated this result transmit yanely reference range : <=65. The reference range was not used to interpr et this result as brielle l/abnormal. [facility]2017-04-10 10:40:00 Test Item Value Reference Range Interpretation Comments Albumin Lvl (test code = Albumin Lvl) 3.1 3.5-5.0 [facility]2017-04-10 10:40:00 Test Item Value Reference Range Interpretation Comments Total Protein (test code = Total 7.6 6.4-8.4 Protein) [facility]2017-04-10 10:40:00 Test Item Value Reference Range Interpretation Comments Creatinine Lvl (test code = Creatinine 0.58 0.50-1.40 Lvl) [facility]2017-04-10 10:40:00 Test Item Value Reference Range Interpretation Comments Sodium Lvl (test code = Sodium Lvl) 138 135-145 [facility]2017-04-10 10:40:00 Test Item Value Reference Range Interpretation Comments Potassium Lvl (test code = Potassium 3.7 3.5-5.1 Lvl) [facility]2017-04-10 10:40:00 Test Item Value Reference Range Interpretation Comments CO2 (test code = CO2) 29 24-32 [facility] Camp[id number] 10:40:00 Test Item Value Reference Range Interpretation Comments Basophils # (test code 0.1 See_Comment [Aut omated message] The = Basophils #) system which generated this result tra nsmitted reference range : <=0.2. The reference r matthieu was not used to int erpret this result as normal/abnormal . [facility] CampusTeusletYZRCBJMAMD5463-91-32 10:40:00 Test Item Value Reference Range Interpretation Comments Microcyte (test code = 2+ *ABN*(06/26/16 Microcyte) 5:40 AM) [facility] CampusTkrfjfaXDHSPXZUDZ6135-23-91 10:40:00 Test Item Value Reference Range Interpretation Comments Monocytes # (test code 0.7 See_Comment [Aut omated message] The = Monocytes #) system which generated this result tra nsmitted reference range : <=0.8. The reference r matthieu was not used to int erpret this result as normal/abnormal . [facility] CampusQxxgatuTMRUUGHYCQ8194-84-50 10:40:00 Test Item Value Reference Range Interpretation Comments Eosinophils # (test code 0.3 See_Comment [A utomated message] The = Eosinophils #) system ic h generated this result tra nsmitted reference range : <=0.5. The reference r matthieu was not used to int erpret this result as normal/abnormal . [facility] CampusMwqlriaLSUOWUGOHF7842-56-41 10:40:00 Test Item Value Reference Range Interpretation Comments Segs-Bands # (test code = Segs-Bands #) 4.7 1.5-8.1 [facility] CampusUuidvnrWARAERXNLK5330-24-05 10:40:00 Test Item Value Reference Range Interpretation Comments Basophils (test code = 0.8 See_Comment [Aut omated message] The Basophils) system which ge nerated this result tra nsmitted reference range : <=1.0. The reference r matthieu was not used to int erpret this result as normal/abnormal . [facility] CampusGrnaanoRNNANCUCGS8646-21-89 10:40:00 Test Item Value Reference Range Interpretation Comments Lymphocytes # (test code = Lymphocytes 2.7 1.0-5.5 #) [facility] CampusXmhhjxiYXIIMJFEHC6545-38-83 10:40:00 Test Item Value Reference Range Interpretation Comments Monocytes (test code = Monocytes) 8.2 2.0-12.0 [facility] CampusFdmbgzpNARVJVPFIX6961-50-62 10:40:00 Test Item Value Reference Range Interpretation Comments Eosinophils (test code = 3.2 See_Comment [A utomated message] The Eosinophils) system which ge nerated this result tra nsmitted reference range : <=4.0. The reference r matthieu was not used to int erpret this result as normal/abnormal . [facility] CampusBycachbJUFTBMYEWQ9074-35-41 10:40:00 Test Item Value Reference Range Interpretation Comments Lymphocytes (test code = Lymphocytes) 32.2 20.0-40.0 [facility] CampusTdmdasvALNCIEOYPK5133-51-00 10:40:00 Test Item Value Reference Range Interpretation Comments Segs (test code = Segs) 55.6 45.0-75.0 [facility] CampusFqvpklmASDQMIZRUR4397-12-90 10:40:00 Test Item Value Reference Range Interpretation Comments Hgb (test code = Hgb) 13.7 14.0-18.0 [facility] CampusPgxoxbiNOEXZTLYOD4458-39-83 10:40:00 Test Item Value Reference Range Interpretation Comments Platelet (test code = Platelet) 282 133-450 [facility] CampusAesttpaRUPVQUFNRV9037-25-31 10:40:00 Test Item Value Reference Range Interpretation Comments MPV (test code = MPV) 9.4 7.4-10.4 [facility] CampusHqvbbbfZFEYDMJRTX3577-36-13 10:40:00 Test Item Value Reference Range Interpretation Comments Hct (test code = Hct) 41.6 42.0-54.0 [facility] CampusXircvoaQLJCESCKQT8258-28-71 10:40:00 Test Item Value Reference Range Interpretation Comments MCV (test code = MCV) 74.7 80.0-94.0 [facility] CampusHfadvtmFZGCDKQZZU0994-56-46 10:40:00 Test Item Value Reference Range Interpretation Comments MCH (test code = MCH) 24.6 pg 27.0-31.0 [facility] CampusSwonispHMXTYVNVOF0165-39-57 10:40:00 Test Item Value Reference Range Interpretation Comments MCHC (test code = MCHC) 33.0 32.0-36.0 [facility] CampusZrlblkfTQUWHAMKTH4286-72-54 10:40:00 Test Item Value Reference Range Interpretation Comments RDW (test code = RDW) 16.0 11.5-14.5 [facility] CampusManuyyeQYTBRGWANY9648-78-60 10:40:00 Test Item Value Reference Range Interpretation Comments WBC (test code = WBC) 8.5 3.7-10.4 [facility] CampusDpsgfgxTWIRWVSQMF4995-54-51 10:40:00 Test Item Value Reference Range Interpretation Comments RBC (test code = RBC) 5.57 4.70-6.10 [facility]2017-04-08 10:59:00 Test Item Value Reference Range Interpretation Comments Vitamin B12 Lvl (test code = Vitamin 262 890-2018 B12 Lvl) [facility]2017-04-07 10:53:00 Test Item Value Reference Range Interpretation Comments Ferritin Lvl (test code = Ferritin Lvl) 172 22-275 [facility]2017-04-07 10:53:00 Test Item Value Reference Range Interpretation Comments % Satur Fe (test code = % Satur Fe) 17 12-57 [facility]2017-04-07 10:53:00 Test Item Value Reference Range Interpretation Comments UIBC (test code = UIBC) 270 110-370 [facility]2017-04-07 10:53:00 Test Item Value Reference Range Interpretation Comments TIBC (test code = TIBC) 325 228-428 [facility]2017-04-07 10:53:00 Test Item Value Reference Range Interpretation Comments Iron (test code = Iron) 55 45-160 [place] 64593017-04-06 10:32:00 Test Item Value Reference Range Interpretation Comments Testosterone Free (test code = 8.8 6.8-21.5 Testosterone Free) [place] [id number] 10:32:00 Test Item Value Reference Range Interpretation Comments Testosterone Tot (test code = 167.5 348.0-1197.0 Testosterone Tot) [facility]2017-04-05 10:23:00 Test Item Value Reference Range Interpretation Comments Magnesium Lvl (test code = Magnesium 2.2 1.8-2.4 Lvl) [facility]CHE[facility] [id number] 10:23:00 Test Item Value Reference Range Interpretation Comments Phosphorus (test code = Phosphorus) 3.3 2.5-4.5 [facility] SouthXrvsyogQCKQZDAJMX5995-94-88 10:23:00 Test Item Value Reference Range Interpretation Comments Prealbumin (test code = Prealbumin) 15.5 18.0-45.0 [facility] SouthPapfrgiMTUNOH3834-67-62 10:23:00 Test Item Value Reference Range Interpretation Comments CHD Risk (test code = CHD Risk) 6.73 4.00-7.30 [facility] SouthEowearhIMRMOW0681-80-04 10:23:00 Test Item Value Reference Range Interpretation Comments VLDL (test code = VLDL) 22 [facility] SouthSgbkkziYAMLQH9762-03-57 10:23:00 Test Item Value Reference Range Interpretation Comments LDL (Calculated) (test code = LDL 167 (Calculated)) [facility] SouthIzvzgswRAEJNB7486-40-62 10:23:00 Test Item Value Reference Range Interpretation Comments HDL (test code = HDL) 33 [facility] SouthVcwtrolZKNQGR9642-88-50 10:23:00 Test Item Value Reference Range Interpretation Comments Chol (test code = Chol) 222 [facility] SouthNclfldaSRLOVY2026-08-57 10:23:00 Test Item Value Reference Range Interpretation Comments [facility] (test code = Trig) [facility] GRBQCXIPH2059[facility]-40 10:23:00 Test Item Value Reference Range Interpretation Comments Hgb A1C (test code = Hgb A1C) 9.2 [facility] AND [id number] 02:26:00 Test Item Value Reference Range Interpretation Comments UA Urobilinogen (test code = UA <=1.0 mg/dL 0.1-1.0 Urobilinogen) [facility] AND [id number] 02:26:00 Test Item Value Reference Range Interpretation Comments UA Sperm (test code = UA Occasional /HPF Sperm) [facility] AND [id number] 02:26:00 Test Item Value Reference Range Interpretation Comments UA Glucose (test code = UA >=1000mg/dL Glucose) [facility] AND [id number] 02:26:00 Test Item Value Reference Range Interpretation Comments UA Ketones (test code = UA Ketones) TR [facility] AND [id number] 02:26:00 Test Item Value Reference Range Interpretation Comments UA Spec Grav (test code = UA Spec Grav) 1.022 [facility] AND [id number] 02:26:00 Test Item Value Reference Range Interpretation Comments UA Turbidity (test code = Clear (06/20/16 9:26 UA Turbidity) PM) [facility] AND [id number] 02:26:00 Test Item Value Reference Range Interpretation Comments UA pH (test code = UA pH) 6.0 5.0-8.0 [facility] AND [id number] 02:26:00 Test Item Value Reference Range Interpretation Comments UA Protein (test code = UA Protein) 10 mg/dL [facility] AND [id number] 02:26:00 Test Item Value Reference Range Interpretation Comments UA Color (test code = Yellow *NA*(06/20/16 9:26 UA Color) PM) [facility] AND [id number] 02:26:00 Test Item Value Reference Range Interpretation Comments UA Mucus (test code = UA Mucus) Few /LPF [facility] AND [id number] 02:26:00 Test Item Value Reference Range Interpretation Comments UA Nitrite (test code Negative (06/20/16 9:26 = UA Nitrite) PM) [facility] AND [id number] 02:26:00 Test Item Value Reference Range Interpretation Comments UA Sq Epi (test code = UA Sq Epi) None Seen [facility] AND [id number] 02:26:00 Test Item Value Reference Range Interpretation Comments UA Bili (test code = Negative *NA*(06/20/16 UA Bili) 9:26 PM) [facility] AND [id number] 02:26:00 Test Item Value Reference Range Interpretation Comments UA WBC (test code = no gt See_Comment [Automa yanely message] The UA WBC) system which ge nerated this result transmit yanely reference range : <=5. The reference range was not used to interpr et this result as brielle l/abnormal. [facility] AND [id number] 02:26:00 Test Item Value Reference Range Interpretation Comments UA Blood (test code = Negative (06/20/16 9:26 UA Blood) PM) [facility] AND [id number] 02:26:00 Test Item Value Reference Range Interpretation Comments UA Leuk Est (test Negative (06/20/16 9:26 code = UA Leuk Est) PM) [facility]2017-02-07 22:58:00 Test Item Value Reference Range Interpretation Comments eGFR (test code = eGFR) 117 [facility]2017-02-07 22:58:00 Test Item Value Reference Range Interpretation Comments Creatinine Lvl (test code = Creatinine 0.68 0.50-1.40 Lvl) [facility]2017-02-07 22:58:00 Test Item Value Reference Range Interpretation Comments Sodium Lvl (test code = Sodium Lvl) 138 135-145 [facility]2017-02-07 22:58:00 Test Item Value Reference Range Interpretation Comments Alk Phos (test code = Alk Phos) 157 39-136 [facility]2017-02-07 22:58:00 Test Item Value Reference Range Interpretation Comments Bili Total (test code = Bili Total) 0.2 0.2-1.3 [facility]2017-02-07 22:58:00 Test Item Value Reference Range Interpretation Comments Total Protein (test code = Total 8.3 6.4-8.4 Protein) [facility]2017-02-07 22:58:00 Test Item Value Reference Range Interpretation Comments ALT (test code = ALT) 44 See_Comment [Auto mated message] The system which ge nerated this result transmit yanely reference range : <=65. The reference range was not used to interpr et this result as brielle l/abnormal. [facility]2017-02-07 22:58:00 Test Item Value Reference Range Interpretation Comments Albumin Lvl (test code = Albumin Lvl) 3.3 3.5-5.0 [facility]2017-02-07 22:58:00 Test Item Value Reference Range Interpretation Comments AST (test code = AST) 35 See_Comment [Auto mated message] The system which ge nerated this result transmit yanely reference range : <=37. The reference range was not used to interpr et this result as brielle l/abnormal. [facility]2017-02-07 22:58:00 Test Item Value Reference Range Interpretation Comments BUN (test code = BUN) 7 7-22 [facility]2017-02-07 22:58:00 Test Item Value Reference Range Interpretation Comments Calcium Lvl (test code = Calcium Lvl) 8.3 8.5-10.5 [facility]2017-02-07 22:58:00 Test Item Value Reference Range Interpretation Comments Chloride Lvl (test code = Chloride Lvl) 101 95-109 [facility]2017-02-07 22:58:00 Test Item Value Reference Range Interpretation Comments Potassium Lvl (test code = Potassium 3.9 3.5-5.1 Lvl) [facility]2017-02-07 22:58:00 Test Item Value Reference Range Interpretation Comments CO2 (test code = CO2) 28 24-32 [facility]2017-02-07 22:58:00 Test Item Value Reference Range Interpretation Comments Glucose Lvl (test code = Glucose Lvl) 203 70-99 [facility]2017-02-07 22:58:00 Test Item Value Reference Range Interpretation Comments A/G Ratio (test code = A/G Ratio) 0.7 0.7-1.6 [facility]2017-02-07 22:58:00 Test Item Value Reference Range Interpretation Comments AGAP (test code = AGAP) 12.9 10.0-20.0 [facility]2017-02-07 22:58:00 Test Item Value Reference Range Interpretation Comments Globulin (test code = Globulin) 5.0 2.7-4.2 [facility]2017-02-07 22:58:00 Test Item Value Reference Range Interpretation Comments B/C Ratio (test code = B/C Ratio) 10 6-25 [facility] [id number] 22:58:00 Test Item Value Reference Range Interpretation Comments MPV (test code = MPV) 9.0 7.4-10.4 [facility] CampusJrwhepuDZJEMUJIUA7410-45-55 22:58:00 Test Item Value Reference Range Interpretation Comments Platelet (test code = Platelet) 310 133-450 [facility] Camp[id number] 22:58:00 Test Item Value Reference Range Interpretation Comments RDW (test code = RDW) 17.5 11.5-14.5 [facility] CampusFaheltoFJWCDQTGLQ1770-86-09 22:58:00 Test Item Value Reference Range Interpretation Comments MCHC (test code = MCHC) 32.1 32.0-36.0 [facility] CampusPkocrvuYVGZHCBQDG6803-15-13 22:58:00 Test Item Value Reference Range Interpretation Comments RBC (test code = RBC) 5.62 4.70-6.10 [facility] Camp[id number] 22:58:00 Test Item Value Reference Range Interpretation Comments Hgb (test code = Hgb) 13.9 14.0-18.0 [facility] CampusOvcdsbvOUDVXGQXIY4473-04-67 22:58:00 Test Item Value Reference Range Interpretation Comments WBC (test code = WBC) 10.3 3.7-10.4 [facility] CampusDjxecwjTMRXECKQQV9660-87-27 22:58:00 Test Item Value Reference Range Interpretation Comments MCV (test code = MCV) 76.9 80.0-94.0 [facility] CampusByfybfuLBSDZBEHMW2385-97-26 22:58:00 Test Item Value Reference Range Interpretation Comments MCH (test code = MCH) 24.7 pg 27.0-31.0 [facility] CampusLnbuvkzXNGONSIWZR3048-40-46 22:58:00 Test Item Value Reference Range Interpretation Comments Hct (test code = Hct) 43.2 42.0-54.0 [facility] CampusYutdjpyAKZIVTYMGC9560-55-98 22:58:00 Test Item Value Reference Range Interpretation Comments Microcyte (test code = 1+ *ABN*(04/25/16 4:58 Microcyte) PM) [facility] CampusXlcarumOAMMOUCXUM2364-74-93 22:58:00 Test Item Value Reference Range Interpretation Comments Basophils # (test code 0.1 See_Comment [Aut omated message] The = Basophils #) system which generated this result tra nsmitted reference range : <=0.2. The reference r matthieu was not used to int erpret this result as normal/abnormal . [facility] Camp[id number] 22:58:00 Test Item Value Reference Range Interpretation Comments Eosinophils # (test code 0.3 See_Comment [A utomated message] The = Eosinophils #) system whic h generated this result tra nsmitted reference range : <=0.5. The reference r matthieu was not used to int erpret this result as normal/abnormal . [facility] Camp[id number] 22:58:00 Test Item Value Reference Range Interpretation Comments Segs-Bands # (test code = Segs-Bands #) 6.4 1.5-8.1 [facility] CampusWbcrpgkTRIEGEJMMT8449-10-91 22:58:00 Test Item Value Reference Range Interpretation Comments Monocytes # (test code 0.9 See_Comment [Aut omated message] The = Monocytes #) system which generated this result tra nsmitted reference range : <=0.8. The reference r matthieu was not used to int erpret this result as normal/abnormal . [facility] CampusObajatsGERITZMZTZ0176-05-88 22:58:00 Test Item Value Reference Range Interpretation Comments Lymphocytes # (test code = Lymphocytes 2.6 1.0-5.5 #) [facility] Camp[id number] 22:58:00 Test Item Value Reference Range Interpretation Comments Segs (test code = Segs) 62.7 45.0-75.0 [facility] Camp[id number] 22:58:00 Test Item Value Reference Range Interpretation Comments Basophils (test code = 0.5 See_Comment [Aut omated message] The Basophils) system which ge nerated this result tra nsmitted reference range : <=1.0. The reference r matthieu was not used to int erpret this result as normal/abnormal . [facility] CampusNfodketBKXHKMHRBG5189-05-26 22:58:00 Test Item Value Reference Range Interpretation Comments Eosinophils (test code = 3.1 See_Comment [A utomated message] The Eosinophils) system which ge nerated this result tra nsmitted reference range : <=4.0. The reference r matthieu was not used to int erpret this result as normal/abnormal . [facility] CampusOwzqkwgZLHNIIEXMF9532-40-16 22:58:00 Test Item Value Reference Range Interpretation Comments Lymphocytes (test code = Lymphocytes) 25.2 20.0-40.0 [facility] Camp[id number] 22:58:00 Test Item Value Reference Range Interpretation Comments Monocytes (test code = Monocytes) 8.5 2.0-12.0 [facility]2016-10-13 16:17:00 Test Item Value Reference Range Interpretation Comments eGFR (test code = eGFR) 114 [facility]2016-10-13 16:17:00 Test Item Value Reference Range Interpretation Comments AST (test code = AST) 40 See_Comment [Auto mated message] The system which ge nerated this result transmit yanely reference range : <=37. The reference range was not used to interpr et this result as brielle l/abnormal. [facility]2016-10-13 16:17:00 Test Item Value Reference Range Interpretation Comments ALT (test code = ALT) 47 See_Comment [Auto mated message] The system which ge nerated this result transmit yanely reference range : <=65. The reference range was not used to interpr et this result as brielle l/abnormal. [place] [id number] 16:17:00 Test Item Value Reference Range Interpretation Comments Bili Total (test code = Bili Total) 0.3 0.2-1.3 [place] [id number] 16:17:00 Test Item Value Reference Range Interpretation Comments Alk Phos (test code = Alk Phos) 99 39-136 [facility]2016-10-13 16:17:00 Test Item Value Reference Range Interpretation Comments Albumin Lvl (test code = Albumin Lvl) 3.4 3.5-5.0 [facility] [place]2016-10-13 16:17:00 Test Item Value Reference Range Interpretation Comments Total Protein (test code = Total 8.0 6.4-8.4 Protein) [facility] [place]2016-10-13 16:17:00 Test Item Value Reference Range Interpretation Comments Calcium Lvl (test code = Calcium Lvl) 8.6 8.5-10.5 [facility] [place]2016-10-13 16:17:00 Test Item Value Reference Range Interpretation Comments CO2 (test code = CO2) 26 24-32 [place] 400776-10-13 16:17:00 Test Item Value Reference Range Interpretation Comments Chloride Lvl (test code = Chloride Lvl) 104 95-109 [facility] [place]2016-10-13 16:17:00 Test Item Value Reference Range Interpretation Comments Creatinine Lvl (test code = Creatinine 0.72 0.50-1.40 Lvl) [place] 400776-10-13 16:17:00 Test Item Value Reference Range Interpretation Comments Sodium Lvl (test code = Sodium Lvl) 138 135-145 [facility] [place]2016-10-13 16:17:00 Test Item Value Reference Range Interpretation Comments Potassium Lvl (test code = Potassium 4.0 3.5-5.1 Lvl) [facility] [place]2016-10-13 16:17:00 Test Item Value Reference Range Interpretation Comments Glucose Lvl (test code = Glucose Lvl) 200 70-99 [facility] [place]2016-10-13 16:17:00 Test Item Value Reference Range Interpretation Comments BUN (test code = BUN) 9 - [facility] [place]2016-10-13 16:17:00 Test Item Value Reference Range Interpretation Comments B/C Ratio (test code = B/C Ratio) 12 09-10 [facility] [place]2016-10-13 16:17:00 Test Item Value Reference Range Interpretation Comments AGAP (test code = AGAP) 12.0 10.0-20.0 [facility] [place]2016-10-13 16:17:00 Test Item Value Reference Range Interpretation Comments A/G Ratio (test code = A/G Ratio) 0.7 0.7-1.6 [facility] [place]2016-10-13 16:17:00 Test Item Value Reference Range Interpretation Comments Globulin (test code = Globulin) 4.6 2.7-4.2 [facility] [place]2016-10-13 16:17:00 Test Item Value Reference Range Interpretation Comments Magnesium Lvl (test code = Magnesium 2.1 1.8-2.4 Lvl) [facility] CampusOyrfpcdMDUYCDYCAO4821-36-74 16:17:00 Test Item Value Reference Range Interpretation Comments Hct (test code = Hct) 42.5 42.0-54.0 [facility] CampusGjlrzxyVBCRDSSZLG3653-76-48 16:17:00 Test Item Value Reference Range Interpretation Comments MCV (test code = MCV) 74.6 80.0-94.0 [facility] CampusQmtcrycJVGHDNEALB6321-58-48 16:17:00 Test Item Value Reference Range Interpretation Comments MCHC (test code = MCHC) 32.2 32.0-36.0 [facility] CampusXxbgtroPTBJDXDVYW4018-54-10 16:17:00 Test Item Value Reference Range Interpretation Comments MCH (test code = MCH) 24.0 pg 27.0-31.0 [facility] CampusEreftkjXONDIBZYPC4418-24-80 16:17:00 Test Item Value Reference Range Interpretation Comments Platelet (test code = Platelet) 339 133-450 [facility] CampusJgskpciICELTYEWEP4041-50-02 16:17:00 Test Item Value Reference Range Interpretation Comments MPV (test code = MPV) 9.4 7.4-10.4 [facility] CampusKpxbfpmEEUDPPEXSO2798-28-05 16:17:00 Test Item Value Reference Range Interpretation Comments RDW (test code = RDW) 16.9 11.5-14.5 [facility] CampusZouzdvqNNLYYEVZJW8380-62-42 16:17:00 Test Item Value Reference Range Interpretation Comments WBC (test code = WBC) 9.5 3.7-10.4 [facility] CampusEngtfugUALSCCVIXF3126-69-11 16:17:00 Test Item Value Reference Range Interpretation Comments RBC (test code = RBC) 5.69 4.70-6.10 [facility] CampusReaestwUSUJDEDRZA1806-82-56 16:17:00 Test Item Value Reference Range Interpretation Comments Hgb (test code = Hgb) 13.7 14.0-18.0 [facility] CampusZxxvlvlNNRBBJPUVI7918-95-74 16:17:00 Test Item Value Reference Range Interpretation Comments Microcyte (test code = 2+ *ABN*(12/30/15 Microcyte) 11:17 AM) [facility] CampusRjfbnrvGXIMXIYSLN4957-79-38 16:17:00 Test Item Value Reference Range Interpretation Comments Eosinophils # (test code 0.2 See_Comment [A utomated message] The = Eosinophils #) system whic h generated this result tra nsmitted reference range : <=0.5. The reference r matthieu was not used to int erpret this result as normal/abnormal . [facility] CampusJehwzhmILVTUWWAAD9055-09-79 16:17:00 Test Item Value Reference Range Interpretation Comments Basophils # (test code 0.1 See_Comment [Aut omated message] The = Basophils #) system which generated this result tra nsmitted reference range : <=0.2. The reference r matthieu was not used to int erpret this result as normal/abnormal . [facility] CampusSthvrssRZRSKBVDHN4180-41-94 16:17:00 Test Item Value Reference Range Interpretation Comments Lymphocytes (test code = Lymphocytes) 21.2 20.0-40.0 [facility] CampusHexeqtnFVJMEDFDMF1787-97-39 16:17:00 Test Item Value Reference Range Interpretation Comments Segs (test code = Segs) 70.3 45.0-75.0 [facility] CampusScrrycuRSNBOWLQBQ7864-33-00 16:17:00 Test Item Value Reference Range Interpretation Comments Monocytes (test code = Monocytes) 5.5 2.0-12.0 [facility] CampusQscsxswVYWNGKYJUH9584-60-63 16:17:00 Test Item Value Reference Range Interpretation Comments Eosinophils (test code = 2.0 See_Comment [A utomated message] The Eosinophils) system which ge nerated this result tra nsmitted reference range : <=4.0. The reference r matthieu was not used to int erpret this result as normal/abnormal . [facility] CampusWmwakzuKLHQJFQLJU8430-17-42 16:17:00 Test Item Value Reference Range Interpretation Comments Basophils (test code = 1.0 See_Comment [Aut omated message] The Basophils) system which ge nerated this result tra nsmitted reference range : <=1.0. The reference r matthieu was not used to int erpret this result as normal/abnormal . [facility] CampusWltipprEMCDTUOVTR2482-12-83 16:17:00 Test Item Value Reference Range Interpretation Comments Lymphocytes # (test code = Lymphocytes 2.0 1.0-5.5 #) [facility] CampusBmqbwxvINQHRVUJQN9184-17-67 16:17:00 Test Item Value Reference Range Interpretation Comments Monocytes # (test code 0.5 See_Comment [Aut omated message] The = Monocytes #) system which generated this result tra nsmitted reference range : <=0.8. The reference r matthieu was not used to int erpret this result as normal/abnormal . [facility] CampusLaujfacJEBERGVAZM8270-39-57 16:17:00 Test Item Value Reference Range Interpretation Comments Segs-Bands # (test code = Segs-Bands #) 6.7 1.5-8.1 [facility] CampusWffaiuiGOSAVDKVEW2167-55-84 12:47:00 Test Item Value Reference Range Interpretation Comments MPV (test code = MPV) 9.3 7.4-10.4 [facility] CampusZubpvdrFCEXVQRMCT4456-09-05 12:47:00 Test Item Value Reference Range Interpretation Comments Platelet (test code = Platelet) 290 133-450 [facility] CampusFkcyaexSEJBRXQXXF5043-49-11 12:47:00 Test Item Value Reference Range Interpretation Comments RDW (test code = RDW) 16.9 11.5-14.5 [facility] CampusBpeywbfXMFVTSQWKF2646-93-50 12:47:00 Test Item Value Reference Range Interpretation Comments MCHC (test code = MCHC) 31.8 32.0-36.0 [facility] CampusJjpfvnmLROMMJXIGZ4281-65-32 12:47:00 Test Item Value Reference Range Interpretation Comments RBC (test code = RBC) 5.48 4.70-6.10 [facility] CampusQjqarxbDAPDOAOVZI0046-42-44 12:47:00 Test Item Value Reference Range Interpretation Comments MCH (test code = MCH) 23.7 pg 27.0-31.0 [facility] CampusNijjmcrQZUQSDVLCU2699-86-48 12:47:00 Test Item Value Reference Range Interpretation Comments MCV (test code = MCV) 74.6 80.0-94.0 [facility] CampusIwpcobkHFQARHQGMO3761-78-22 12:47:00 Test Item Value Reference Range Interpretation Comments Hct (test code = Hct) 40.9 42.0-54.0 [facility] CampusIbepxkuISPGRCEAVM2485-87-90 12:47:00 Test Item Value Reference Range Interpretation Comments Hgb (test code = Hgb) 13.0 14.0-18.0 [facility] CampusGukmnhqEDRWCBSRTU3550-97-72 12:47:00 Test Item Value Reference Range Interpretation Comments WBC (test code = WBC) 9.0 3.7-10.4 [facility] CampusSnebeaxSUCSSETXGU7017-65-42 12:47:00 Test Item Value Reference Range Interpretation Comments Lymphocytes # (test code = Lymphocytes 2.5 1.0-5.5 #) [facility] CampusCtcfexzWKMFPQCJUC4921-73-16 12:47:00 Test Item Value Reference Range Interpretation Comments Segs-Bands # (test code = Segs-Bands #) 5.4 1.5-8.1 [facility] CampusRbkojyrHWHPKUTWKQ6334-02-84 12:47:00 Test Item Value Reference Range Interpretation Comments Microcyte (test code = 2+ *ABN*(12/28/15 Microcyte) 7:47 AM) [facility] CampusDamjzwvBXYMVMACNA7998-84-06 12:47:00 Test Item Value Reference Range Interpretation Comments Basophils # (test code 0.1 See_Comment [Aut omated message] The = Basophils #) system which generated this result tra nsmitted reference range : <=0.2. The reference r matthieu was not used to int erpret this result as normal/abnormal . [facility] CampusWmxwjmtGDJXQHFFQS3752-06-14 12:47:00 Test Item Value Reference Range Interpretation Comments Eosinophils # (test code 0.2 See_Comment [A utomated message] The = Eosinophils #) system whic h generated this result tra nsmitted reference range : <=0.5. The reference r matthieu was not used to int erpret this result as normal/abnormal . [facility] CampusEnnrqsjIEQJZGJNBL5921-17-04 12:47:00 Test Item Value Reference Range Interpretation Comments Monocytes # (test code 0.8 See_Comment [Aut omated message] The = Monocytes #) system which generated this result tra nsmitted reference range : <=0.8. The reference r matthieu was not used to int erpret this result as normal/abnormal . [facility] CampusDbqenrjMPZUDUJZNX1744-27-18 12:47:00 Test Item Value Reference Range Interpretation Comments Eosinophils (test code = 2.5 See_Comment [A utomated message] The Eosinophils) system which ge nerated this result tra nsmitted reference range : <=4.0. The reference r matthieu was not used to int erpret this result as normal/abnormal . [facility] CampusItixqfeANRBHOJRON3025-25-74 12:47:00 Test Item Value Reference Range Interpretation Comments Basophils (test code = 0.6 See_Comment [Aut omated message] The Basophils) system which ge nerated this result tra nsmitted reference range : <=1.0. The reference r matthieu was not used to int erpret this result as normal/abnormal . [facility] CampusPmlcizuPDILIJWYJQ7039-23-42 12:47:00 Test Item Value Reference Range Interpretation Comments Lymphocytes (test code = Lymphocytes) 28.0 20.0-40.0 [facility] CampusDuoaitcBFRRXKVMIF8085-31-98 12:47:00 Test Item Value Reference Range Interpretation Comments Monocytes (test code = Monocytes) 9.0 2.0-12.0 [facility] CampusSlbpgtnADMBCGWCCD2622-19-77 12:47:00 Test Item Value Reference Range Interpretation Comments Segs (test code = Segs) 59.9 45.0-75.0 [facility] [place]2016-10-10 17:37:00 Test Item Value Reference Range Interpretation Comments B/C Ratio (test code = B/C Ratio) 11 6-25 [facility] [place]2016-10-10 17:37:00 Test Item Value Reference Range Interpretation Comments A/G Ratio (test code = A/G Ratio) 0.7 0.7-1.6 [facility] [place]2016-10-10 17:37:00 Test Item Value Reference Range Interpretation Comments Globulin (test code = Globulin) 4.9 2.7-4.2 [facility] [place]2016-10-10 17:37:00 Test Item Value Reference Range Interpretation Comments AGAP (test code = AGAP) 11.0 10.0-20.0 [facility] [place]2016-10-10 17:37:00 Test Item Value Reference Range Interpretation Comments eGFR (test code = eGFR) 112 [facility] [place]2016-10-10 17:37:00 Test Item Value Reference Range Interpretation Comments Alk Phos (test code = Alk Phos) 97 39-136 [facility] [place]2016-10-10 17:37:00 Test Item Value Reference Range Interpretation Comments Bili Total (test code = Bili Total) 0.4 0.2-1.3 [facility] [place]2016-10-10 17:37:00 Test Item Value Reference Range Interpretation Comments Chloride Lvl (test code = Chloride Lvl) 104 95-109 [facility] [place]2016-10-10 17:37:00 Test Item Value Reference Range Interpretation Comments Total Protein (test code = Total 8.4 6.4-8.4 Protein) [facility] [place]2016-10-10 17:37:00 Test Item Value Reference Range Interpretation Comments CO2 (test code = CO2) 28 24-32 [facility] [place]2016-10-10 17:37:00 Test Item Value Reference Range Interpretation Comments Calcium Lvl (test code = Calcium Lvl) 8.9 8.5-10.5 [facility] [place]2016-10-10 17:37:00 Test Item Value Reference Range Interpretation Comments Creatinine Lvl (test code = Creatinine 0.76 0.50-1.40 Lvl) [facility] [place]2016-10-10 17:37:00 Test Item Value Reference Range Interpretation Comments Sodium Lvl (test code = Sodium Lvl) 139 135-145 [facility] [place]2016-10-10 17:37:00 Test Item Value Reference Range Interpretation Comments Glucose Lvl (test code = Glucose Lvl) 168 70-99 [facility] [place]2016-10-10 17:37:00 Test Item Value Reference Range Interpretation Comments BUN (test code = BUN) 8 7-22 [facility] [place]2016-10-10 17:37:00 Test Item Value Reference Range Interpretation Comments Potassium Lvl (test code = Potassium 4.0 3.5-5.1 Lvl) [place] 400776-10-10 17:37:00 Test Item Value Reference Range Interpretation Comments AST (test code = AST) 49 See_Comment [Auto mated message] The system which ge nerated this result transmit yanely reference range : <=37. The reference range was not used to interpr et this result as brielle l/abnormal. [facility] [place]2016-10-10 17:37:00 Test Item Value Reference Range Interpretation Comments ALT (test code = ALT) 49 See_Comment [Auto mated message] The system which ge nerated this result transmit yanely reference range : <=65. The reference range was not used to interpr et this result as brielle l/abnormal. [facility] [place]2016-10-10 17:37:00 Test Item Value Reference Range Interpretation Comments Albumin Lvl (test code = Albumin Lvl) 3.5 3.5-5.0 [facility] [place]2016-10-10 17:37:00 Test Item Value Reference Range Interpretation Comments Magnesium Lvl (test code = Magnesium 2.0 1.8-2.4 Lvl) [facility] CampusGrpwmbxSWZVULNHOC7146-09-44 17:37:00 Test Item Value Reference Range Interpretation Comments WBC (test code = WBC) 11.4 3.7-10.4 [facility] CampusHtmrcmsGXHSQSKMAT9092-16-10 17:37:00 Test Item Value Reference Range Interpretation Comments MCV (test code = MCV) 74.4 80.0-94.0 [facility] CampusTuennrjXTHWINMPKW1620-14-45 17:37:00 Test Item Value Reference Range Interpretation Comments RBC (test code = RBC) 5.89 4.70-6.10 [facility] CampusMmvsgigHLUPVZJFTE6631-21-67 17:37:00 Test Item Value Reference Range Interpretation Comments Hgb (test code = Hgb) 14.3 14.0-18.0 [facility] CampusMrfcuplUYLMFKQOMA7298-67-13 17:37:00 Test Item Value Reference Range Interpretation Comments Hct (test code = Hct) 43.8 42.0-54.0 [facility] CampusNusrftxWZMDOVTPXE8187-65-82 17:37:00 Test Item Value Reference Range Interpretation Comments RDW (test code = RDW) 16.8 11.5-14.5 [facility] CampusJjvdncaQQYYBLFGSL0123-06-69 17:37:00 Test Item Value Reference Range Interpretation Comments Platelet (test code = Platelet) 294 133-450 [facility] CampusCaytkxmCMHLIWWWXP0679-03-66 17:37:00 Test Item Value Reference Range Interpretation Comments MPV (test code = MPV) 9.2 7.4-10.4 [facility] CampusCyuzsetRUCCEPDTZP5061-21-17 17:37:00 Test Item Value Reference Range Interpretation Comments MCH (test code = MCH) 24.3 pg 27.0-31.0 [facility] CampusRxoiyrsDKAGMJVKNB1272-37-74 17:37:00 Test Item Value Reference Range Interpretation Comments MCHC (test code = MCHC) 32.7 32.0-36.0 [facility] CampusWvpkyugLERXAUWMOL8641-27-32 17:37:00 Test Item Value Reference Range Interpretation Comments Microcyte (test code = 2+ *ABN*(12/27/15 Microcyte) 12:37 PM) [facility] CampusNomsdxeUEHMVIIOZT6337-17-62 17:37:00 Test Item Value Reference Range Interpretation Comments Basophils # (test code 0.0 See_Comment [Aut omated message] The = Basophils #) system which generated this result tra nsmitted reference range : <=0.2. The reference r matthieu was not used to int erpret this result as normal/abnormal . [facility] CampusDfsdnysLCKYTSTIFU4163-36-89 17:37:00 Test Item Value Reference Range Interpretation Comments Eosinophils # (test code 0.3 See_Comment [A utomated message] The = Eosinophils #) system whic h generated this result tra nsmitted reference range : <=0.5. The reference r matthieu was not used to int erpret this result as normal/abnormal . [facility] CampusEeznbeeCNEYIMWVFL7541-13-34 17:37:00 Test Item Value Reference Range Interpretation Comments Monocytes # (test code 0.5 See_Comment [Aut omated message] The = Monocytes #) system which generated this result tra nsmitted reference range : <=0.8. The reference r matthieu was not used to int erpret this result as normal/abnormal . [facility] CampusOmmzfsdKAXXFYTZQG2746-06-68 17:37:00 Test Item Value Reference Range Interpretation Comments Lymphocytes # (test code = Lymphocytes 2.5 1.0-5.5 #) [facility] CampusObflggbPVOOOSFCDP9127-59-97 17:37:00 Test Item Value Reference Range Interpretation Comments Segs-Bands # (test code = Segs-Bands #) 8.1 1.5-8.1 [facility] CampusXwrfzdgOSVLPPYXWX6400-19-96 17:37:00 Test Item Value Reference Range Interpretation Comments Basophils (test code = 0.0 See_Comment [Aut omated message] The Basophils) system which ge nerated this result tra nsmitted reference range : <=1.0. The reference r matthieu was not used to int erpret this result as normal/abnormal . [facility] CampusYikierqRBROVIWWEA6852-04-48 17:37:00 Test Item Value Reference Range Interpretation Comments Eosinophils (test code = 2.3 See_Comment [A utomated message] The Eosinophils) system which ge nerated this result tra nsmitted reference range : <=4.0. The reference r matthieu was not used to int erpret this result as normal/abnormal . [facility] CampusEsvmvnvUYSGSQPHXE1330-69-65 17:37:00 Test Item Value Reference Range Interpretation Comments Lymphocytes (test code = Lymphocytes) 21.5 20.0-40.0 [facility] CampusVwmpguaTUWOVXSTXB0528-11-39 17:37:00 Test Item Value Reference Range Interpretation Comments Monocytes (test code = Monocytes) 4.1 2.0-12.0 [facility] CampusGbqezhwCSUTDIHSIO6863-63-76 17:37:00 Test Item Value Reference Range Interpretation Comments Segs (test code = Segs) 72.1 45.0-75.0 [facility] [place]2016-10-06 14:36:00 Test Item Value Reference Range Interpretation Comments eGFR (test code = eGFR) 111 [facility] [place]2016-10-06 14:36:00 Test Item Value Reference Range Interpretation Comments AGAP (test code = AGAP) 13.8 10.0-20.0 [facility] [place]2016-10-06 14:36:00 Test Item Value Reference Range Interpretation Comments A/G Ratio (test code = A/G Ratio) 0.7 0.7-1.6 [facility] [place]2016-10-06 14:36:00 Test Item Value Reference Range Interpretation Comments Chloride Lvl (test code = Chloride Lvl) 104 95-109 [facility] [place]2016-10-06 14:36:00 Test Item Value Reference Range Interpretation Comments Alk Phos (test code = Alk Phos) 98 39-136 [facility] [place]2016-10-06 14:36:00 Test Item Value Reference Range Interpretation Comments AST (test code = AST) 42 See_Comment [Auto mated message] The system which ge nerated this result transmit yanely reference range : <=37. The reference range was not used to interpr et this result as brielle l/abnormal. [facility] [place]2016-10-06 14:36:00 Test Item Value Reference Range Interpretation Comments ALT (test code = ALT) 45 See_Comment [Auto mated message] The system which ge nerated this result transmit yanely reference range : <=65. The reference range was not used to interpr et this result as brielle l/abnormal. [facility] [place]2016-10-06 14:36:00 Test Item Value Reference Range Interpretation Comments Albumin Lvl (test code = Albumin Lvl) 3.5 3.5-5.0 [facility] [place]2016-10-06 14:36:00 Test Item Value Reference Range Interpretation Comments Globulin (test code = Globulin) 4.9 2.7-4.2 [facility] [place]2016-10-06 14:36:00 Test Item Value Reference Range Interpretation Comments B/C Ratio (test code = B/C Ratio) 16 6-25 [facility] [place]2016-10-06 14:36:00 Test Item Value Reference Range Interpretation Comments Bili Total (test code = Bili Total) 0.3 0.2-1.3 [place] 400776-10-06 14:36:00 Test Item Value Reference Range Interpretation Comments Calcium Lvl (test code = Calcium Lvl) 8.7 8.5-10.5 [facility] [place]2016-10-06 14:36:00 Test Item Value Reference Range Interpretation Comments CO2 (test code = CO2) 26 24-32 [facility] [place]2016-10-06 14:36:00 Test Item Value Reference Range Interpretation Comments Total Protein (test code = Total 8.4 6.4-8.4 Protein) [facility] [place]2016-10-06 14:36:00 Test Item Value Reference Range Interpretation Comments Creatinine Lvl (test code = Creatinine 0.77 0.50-1.40 Lvl) [facility] [place]2016-10-06 14:36:00 Test Item Value Reference Range Interpretation Comments Potassium Lvl (test code = Potassium 3.8 3.5-5.1 Lvl) [facility] [place]2016-10-06 14:36:00 Test Item Value Reference Range Interpretation Comments Sodium Lvl (test code = Sodium Lvl) 140 135-145 [facility] [place]2016-10-06 14:36:00 Test Item Value Reference Range Interpretation Comments BUN (test code = BUN) 12 7-22 [facility] [place]2016-10-06 14:36:00 Test Item Value Reference Range Interpretation Comments Glucose Lvl (test code = Glucose Lvl) 206 70-99 [facility] [place]2016-10-06 14:36:00 Test Item Value Reference Range Interpretation Comments Magnesium Lvl (test code = Magnesium 2.0 1.8-2.4 Lvl) [place] [id number] 14:36:00 Test Item Value Reference Range Interpretation Comments Testosterone Tot (test code = 168.9 348.0-1197.0 Testosterone Tot) [place] [id number] 14:36:00 Test Item Value Reference Range Interpretation Comments Testosterone Free (test code = 9.0 6.8-21.5 Testosterone Free) [facility]2016-09-25 15:59:00 Test Item Value Reference Range Interpretation Comments UA Sq Epi (test code = UA Sq Epi) None Seen [facility]2016-09-25 15:59:00 Test Item Value Reference Range Interpretation Comments UA Urobilinogen (test code = UA <=1.0 mg/dL 0.1-1.0 Urobilinogen) [facility]2016-09-25 15:59:00 Test Item Value Reference Range Interpretation Comments UA WBC (test code = 1 See_Comment [Automa yanely message] The UA WBC) system which ge nerated this result transmit yanely reference range : <=5. The reference range was not used to interpr et this result as brielle l/abnormal. [facility] AND [id number] 15:59:00 Test Item Value Reference Range Interpretation Comments UA Bili (test code = Negative *NA*(12/12/15 UA Bili) 10:59 AM) [facility] AND [id number] 15:59:00 Test Item Value Reference Range Interpretation Comments UA Blood (test code = Negative (12/12/15 10:59 UA Blood) AM) [facility] AND [id number] 15:59:00 Test Item Value Reference Range Interpretation Comments UA Leuk Est (test Negative (12/12/15 10:59 code = UA Leuk Est) AM) [facility] AND [id number] 15:59:00 Test Item Value Reference Range Interpretation Comments UA Nitrite (test code Positive *ABN*(12/12/15 = UA Nitrite) 10:59 AM) [facility] AND [id number] 15:59:00 Test Item Value Reference Range Interpretation Comments UA Color (test code = Brown *ABN*(12/12/15 UA Color) 10:59 AM) [facility] AND [id number] 15:59:00 Test Item Value Reference Range Interpretation Comments UA Turbidity (test code = Clear (12/12/15 10:59 UA Turbidity) AM) [facility] AND [id number] 15:59:00 Test Item Value Reference Range Interpretation Comments UA Bacteria (test code = UA Occasional /HPF Bacteria) [facility] AND [id number] 15:59:00 Test Item Value Reference Range Interpretation Comments UA Amorph Danyelle (test code = Occasional /HPF UA Amorph Danyelle) [facility] AND [id number] 15:59:00 Test Item Value Reference Range Interpretation Comments UA RBC (test code = no gt See_Comment [Automa yanely message] The UA RBC) system which ge nerated this result transmit yanely reference range : <=2. The reference range was not used to interpr et this result as brielle l/abnormal. [facility] AND [id number] 15:59:00 Test Item Value Reference Range Interpretation Comments UA Mucus (test code = UA Mucus) Few /LPF [facility] AND [id number] 15:59:00 Test Item Value Reference Range Interpretation Comments UA Ketones (test code = UA Negative mg/dL Ketones) [facility] AND [id number] 15:59:00 Test Item Value Reference Range Interpretation Comments UA Glucose (test code = UA Negative mg/dL Glucose) [facility] AND [id number] 15:59:00 Test Item Value Reference Range Interpretation Comments UA Spec Grav (test code = UA Spec Grav) 1.013 [facility] AND [id number] 15:59:00 Test Item Value Reference Range Interpretation Comments UA Protein (test code = UA Negative mg/dL Protein) [facility] AND [id number] 15:59:00 Test Item Value Reference Range Interpretation Comments UA pH (test code = UA pH) 6.0 5.0-8.0 [facility] AND [id number] 11:39:00 Test Item Value Reference Range Interpretation Comments UA Sq Epi (test code = UA Sq Epi) None Seen [facility] AND [id number] 11:39:00 Test Item Value Reference Range Interpretation Comments UA Urobilinogen (test code = UA <=1.0 mg/dL 0.1-1.0 Urobilinogen) [facility] AND [id number] 11:39:00 Test Item Value Reference Range Interpretation Comments UA Nitrite (test code Negative (12/11/15 6:39 = UA Nitrite) AM) [facility] AND [id number] 11:39:00 Test Item Value Reference Range Interpretation Comments UA Leuk Est (test Negative (12/11/15 6:39 code = UA Leuk Est) AM) [facility] AND [id number] 11:39:00 Test Item Value Reference Range Interpretation Comments UA Bili (test code = Negative *NA*(12/11/15 UA Bili) 6:39 AM) [facility] AND [id number] 11:39:00 Test Item Value Reference Range Interpretation Comments UA Blood (test code = Negative (12/11/15 6:39 UA Blood) AM) [facility] AND [id number] 11:39:00 Test Item Value Reference Range Interpretation Comments UA pH (test code = UA pH) 5.5 5.0-8.0 [facility] AND [id number] 11:39:00 Test Item Value Reference Range Interpretation Comments UA Protein (test code = UA Protein) 20 mg/dL [facility] AND [id number] 11:39:00 Test Item Value Reference Range Interpretation Comments UA Turbidity (test code Slight *ABN*(12/11/15 = UA Turbidity) 6:39 AM) [facility] AND [id number] 11:39:00 Test Item Value Reference Range Interpretation Comments UA Spec Grav (test code = UA Spec Grav) 1.024 [facility] AND [id number] 11:39:00 Test Item Value Reference Range Interpretation Comments UA Glucose (test code = UA Negative mg/dL Glucose) [facility] AND [id number] 11:39:00 Test Item Value Reference Range Interpretation Comments UA WBC (test code = 8 See_Comment [Automa yanely message] The UA WBC) system which ge nerated this result transmit yanely reference range : <=5. The reference range was not used to interpr et this result as brielle l/abnormal. [facility] AND [id number] 11:39:00 Test Item Value Reference Range Interpretation Comments UA RBC (test code = 3 See_Comment [Automa yanely message] The UA RBC) system which ge nerated this result transmit yanely reference range : <=2. The reference range was not used to interpr et this result as brielle l/abnormal. [facility] AND [id number] 11:39:00 Test Item Value Reference Range Interpretation Comments UA Mucus (test code = UA Mucus) Many /LPF [facility] AND [id number] 11:39:00 Test Item Value Reference Range Interpretation Comments UA Bacteria (test code = UA Occasional /HPF Bacteria) [facility] AND [id number] 11:39:00 Test Item Value Reference Range Interpretation Comments UA Amorph Danyelle (test code = Occasional /HPF UA Amorph Danyelle) [facility] AND [id number] 11:39:00 Test Item Value Reference Range Interpretation Comments UA Color (test code = Brown *ABN*(12/11/15 UA Color) 6:39 AM) [facility] AND [id number] 11:39:00 Test Item Value Reference Range Interpretation Comments UA Ketones (test code = UA Negative mg/dL Ketones) [facility] BANK [id number] 13:13:00 Test Item Value Reference Range Interpretation Comments ABO/Rh (test code = ABO/Rh) O POS [facility] [id number] 13:13:00 Test Item Value Reference Range Interpretation Comments Antibody Scrn (test Negative (12/09/15 8:13 code = Antibody Scrn) AM) [facility] AND [id number] 21:51:00 Test Item Value Reference Range Interpretation Comments UA RBC (test code = 8 See_Comment [Automa yanely message] The UA RBC) system which ge nerated this result transmit yanely reference range : <=2. The reference range was not used to interpr et this result as brielle l/abnormal. [facility] AND [id number] 21:51:00 Test Item Value Reference Range Interpretation Comments UA Sq Epi (test code = UA Sq Epi) None Seen [facility] AND [id number] 21:51:00 Test Item Value Reference Range Interpretation Comments UA Mucus (test code = UA Mucus) Few /LPF [facility] AND [id number] 21:51:00 Test Item Value Reference Range Interpretation Comments UA Blood (test code = Negative (12/07/15 4:51 UA Blood) PM) [facility] AND [id number] 21:51:00 Test Item Value Reference Range Interpretation Comments UA Leuk Est (test Negative (12/07/15 4:51 code = UA Leuk Est) PM) [facility] AND [id number] 21:51:00 Test Item Value Reference Range Interpretation Comments UA Nitrite (test code Negative (12/07/15 4:51 = UA Nitrite) PM) [facility] AND [id number] 21:51:00 Test Item Value Reference Range Interpretation Comments UA WBC (test code = no gt See_Comment [Automa yanely message] The UA WBC) system which ge nerated this result transmit yanely reference range : <=5. The reference range was not used to interpr et this result as brielle l/abnormal. [facility] AND [id number] 21:51:00 Test Item Value Reference Range Interpretation Comments UA Turbidity (test code = Clear (12/07/15 4:51 UA Turbidity) PM) [facility] AND [id number] 21:51:00 Test Item Value Reference Range Interpretation Comments UA Color (test code = Yellow *NA*(12/07/15 UA Color) 4:51 PM) [facility] AND [id number] 21:51:00 Test Item Value Reference Range Interpretation Comments UA Ketones (test code = UA Negative mg/dL Ketones) [facility] AND [id number] 21:51:00 Test Item Value Reference Range Interpretation Comments UA Bili (test code = Negative *NA*(12/07/15 UA Bili) 4:51 PM) [facility] AND [id number] 21:51:00 Test Item Value Reference Range Interpretation Comments UA Glucose (test code = UA Negative mg/dL Glucose) [facility] AND [id number] 21:51:00 Test Item Value Reference Range Interpretation Comments UA pH (test code = UA pH) 7.0 5.0-8.0 [facility] AND [id number] 21:51:00 Test Item Value Reference Range Interpretation Comments UA Protein (test code = UA Negative mg/dL Protein) [facility] AND [id number] 21:51:00 Test Item Value Reference Range Interpretation Comments UA Spec Grav (test code = UA Spec Grav) 1.022 [facility] AND [id number] 21:51:00 Test Item Value Reference Range Interpretation Comments UA Urobilinogen (test code = UA <=1.0 mg/dL 0.1-1.0 Urobilinogen) [facility] [id number] 09:06:00 Test Item Value Reference Range Interpretation Comments Phosphorus (test code = Phosphorus) 3.3 2.5-4.5 [facility] [id number] 09:46:00 Test Item Value Reference Range Interpretation Comments Phosphorus (test code = Phosphorus) 3.7 2.5-4.5 [id number] 09:46:00 Test Item Value Reference Range Interpretation Comments Plt Morph (test code = Normal (11/29/15 4:46 Plt Morph) AM) [facility] [id number] 09:24:00 Test Item Value Reference Range Interpretation Comments Phosphorus (test code = Phosphorus) 2.8 2.5-4.5 [facility] [id number] 09:53:00 Test Item Value Reference Range Interpretation Comments % Satur Fe (test code = % Satur Fe) 16 12-57 [facility] [id number] 09:53:00 Test Item Value Reference Range Interpretation Comments UIBC (test code = UIBC) 307 110-370 [facility] [id number] 09:53:00 Test Item Value Reference Range Interpretation Comments Iron (test code = Iron) 59 45-160 [facility]2016-08-24 09:53:00 Test Item Value Reference Range Interpretation Comments TIBC (test code = TIBC) 366 228-428 [facility] [id number] 09:53:00 Test Item Value Reference Range Interpretation Comments Ferritin Lvl (test code = Ferritin Lvl) 224 22-275 [facility] CampusJkmnkcwTFPQZVMMSO8893-97-12 09:53:00 Test Item Value Reference Range Interpretation Comments Plt Morph (test code = Normal (11/10/15 4:53 Plt Morph) AM) [id number] 09:53:00 Test Item Value Reference Range Interpretation Comments Prealbumin (test code = Prealbumin) 17.8 18.0-45.0 [id number] 09:53:00 Test Item Value Reference Range Interpretation Comments VLDL (test code = VLDL) 45 [facility] SouthOreyfygPJANON4567-06-47 09:53:00 Test Item Value Reference Range Interpretation Comments LDL (Calculated) (test code = LDL 181 (Calculated)) [facility] SouthRvcokxlGIPMSS3216-07-48 09:53:00 Test Item Value Reference Range Interpretation Comments Trig (test code = Trig) 224 [facility] [id number] 09:53:00 Test Item Value Reference Range Interpretation Comments HDL (test code = HDL) 34 [facility] [id number] 09:53:00 Test Item Value Reference Range Interpretation Comments Chol (test code = Chol) 260 [facility] SouthRrhlcumWSLUUN9798-80-00 09:53:00 Test Item Value Reference Range Interpretation Comments CHD Risk (test code = CHD Risk) 7.65 4.00-7.30 [facility] [id number] 09:53:00 Test Item Value Reference Range Interpretation Comments Hgb A1C (test code = Hgb A1C) 7.5 [facility] [id number] 12:06:00 Test Item Value Reference Range Interpretation Comments ABO/Rh (test code = ABO/Rh) O POS [facility] ResourcesPOET TechnologiesPATHSENSORS [id number] 12:06:00 Test Item Value Reference Range Interpretation Comments Antibody Scrn (test Negative (08/20/15 7:06 code = Antibody Scrn) AM) [id number] 10:47:00 Test Item Value Reference Range Interpretation Comments AGAP (test code = AGAP) 12.8 10.0-20.0 [facility] Reso[id number] 10:47:00 Test Item Value Reference Range Interpretation Comments CO2 (test code = CO2) 25 24-32 [facility]GmqbbnhMDYABJWBFSKJ9479-49-45 10:47:00 Test Item Value Reference Range Interpretation Comments Calcium Lvl (test code = Calcium Lvl) 8.7 8.5-10.5 [facility] Hos[id number] 10:47:00 Test Item Value Reference Range Interpretation Comments Creatinine Lvl (test code = Creatinine 0.66 0.50-1.40 Lvl) [facility] Hos[id number] 10:47:00 Test Item Value Reference Range Interpretation Comments eGFR (test code = eGFR) 119 [facility] HospitalIokrlaqGKETSCOIHDSQ0186-76-83 10:47:00 Test Item Value Reference Range Interpretation Comments Sodium Lvl (test code = Sodium Lvl) 141 135-145 [facility] HospitalKweyvciJAFPZMCWZWRZ1402-13-12 10:47:00 Test Item Value Reference Range Interpretation Comments Chloride Lvl (test code = Chloride Lvl) 108 95-109 [facility] HospitalCbjyjkbQJPDVGKGAFUY2296-43-79 10:47:00 Test Item Value Reference Range Interpretation Comments Potassium Lvl (test code = Potassium 4.8 3.5-5.1 Lvl) [facility][id number] 10:47:00 Test Item Value Reference Range Interpretation Comments BUN (test code = BUN) 9 7-22 [facility] S[id number] 10:47:00 Test Item Value Reference Range Interpretation Comments Glucose Lvl (test code = Glucose Lvl) 179 70-99 [facility] Camp[id number] 10:47:00 Test Item Value Reference Range Interpretation Comments Lymphocytes # (test code = Lymphocytes 2.1 1.0-5.5 #) [facility] CampusVjajgxzXAAVRHQWSY0750-27-99 10:47:00 Test Item Value Reference Range Interpretation Comments Monocytes # (test code 0.8 See_Comment [Aut omated message] The = Monocytes #) system which generated this result tra nsmitted reference range : <=0.8. The reference r matthieu was not used to int erpret this result as normal/abnormal . [facility] CampusMuvlwxpDRYBPGGNRR3467-04-94 10:47:00 Test Item Value Reference Range Interpretation Comments Basophils # (test code 0.1 See_Comment [Aut omated message] The = Basophils #) system which generated this result tra nsmitted reference range : <=0.2. The reference r matthieu was not used to int erpret this result as normal/abnormal . [facility] CampusDrtcdlmEFUGUENCTD8158-78-10 10:47:00 Test Item Value Reference Range Interpretation Comments Microcyte (test code = 1+ *ABN*(08/02/15 Microcyte) 5:47 AM) [facility] CampusRfdqvofBKKCCREPLN7680-52-17 10:47:00 Test Item Value Reference Range Interpretation Comments Segs-Bands # (test code = Segs-Bands #) 6.2 1.5-8.1 [facility] CampusBvzqdfhDGYSQQMJDN5285-03-76 10:47:00 Test Item Value Reference Range Interpretation Comments Eosinophils (test code = 1.8 See_Comment [A utomated message] The Eosinophils) system which ge nerated this result tra nsmitted reference range : <=4.0. The reference r matthieu was not used to int erpret this result as normal/abnormal . [facility] CampusHvxiabgROFQXQWXKX9072-50-41 10:47:00 Test Item Value Reference Range Interpretation Comments Basophils (test code = 0.7 See_Comment [Aut omated message] The Basophils) system which ge nerated this result tra nsmitted reference range : <=1.0. The reference r matthieu was not used to int erpret this result as normal/abnormal . [facility] CampusFlljqqnBLYVCMQWMW2350-97-68 10:47:00 Test Item Value Reference Range Interpretation Comments Eosinophils # (test code 0.2 See_Comment [A utomated message] The = Eosinophils #) system whic h generated this result tra nsmitted reference range : <=0.5. The reference r matthieu was not used to int erpret this result as normal/abnormal . [facility] CampusJltrrpwTDSBEUOYCE7002-96-16 10:47:00 Test Item Value Reference Range Interpretation Comments Segs (test code = Segs) 66.3 45.0-75.0 [facility] CampusPuxbaliYZUVLOOOSV7822-97-26 10:47:00 Test Item Value Reference Range Interpretation Comments Monocytes (test code = Monocytes) 9.1 2.0-12.0 [facility] CampusYiyjtiaOEFGFLLDZG6727-29-51 10:47:00 Test Item Value Reference Range Interpretation Comments Lymphocytes (test code = Lymphocytes) 22.1 20.0-40.0 [facility] CampusCfmchrlXIDIFXILFE6347-35-26 10:47:00 Test Item Value Reference Range Interpretation Comments MPV (test code = MPV) 8.5 7.4-10.4 [facility] CampusEadcdawTOXLWXFCNU7124-26-41 10:47:00 Test Item Value Reference Range Interpretation Comments Hgb (test code = Hgb) 14.2 14.0-18.0 [facility] CampusWklbldzDUOGHWWKVV6689-42-23 10:47:00 Test Item Value Reference Range Interpretation Comments Hct (test code = Hct) 43.5 42.0-54.0 [facility] CampusFqtceonZRQTNYKZHT5775-18-01 10:47:00 Test Item Value Reference Range Interpretation Comments RBC (test code = RBC) 5.71 4.70-6.10 [facility] CampusLwuglqlRWIEUXHKGW9436-65-06 10:47:00 Test Item Value Reference Range Interpretation Comments WBC (test code = WBC) 9.3 3.7-10.4 [facility] CampusOnveasvYEWNCBROZL5021-21-61 10:47:00 Test Item Value Reference Range Interpretation Comments Platelet (test code = Platelet) 266 133-450 [facility] CampusVxzidbqPHQCCTOBUF3509-21-96 10:47:00 Test Item Value Reference Range Interpretation Comments RDW (test code = RDW) 16.3 11.5-14.5 [facility] CampusSzvehysEEVIIKQYDR4139-90-26 10:47:00 Test Item Value Reference Range Interpretation Comments MCHC (test code = MCHC) 32.5 32.0-36.0 [facility] CampusClllhokIDJQWIEBED3431-07-51 10:47:00 Test Item Value Reference Range Interpretation Comments MCV (test code = MCV) 76.3 80.0-94.0 [facility] CampusOlmzxqsSVZKPFRQLR8547-85-31 10:47:00 Test Item Value Reference Range Interpretation Comments MCH (test code = MCH) 24.8 pg 27.0-31.0 [facility] CampusBmmcnndPBIQPFOBNJ7644-65-70 10:47:00 Test Item Value Reference Range Interpretation Comments INR (test code = INR) 0.96 0.85-1.17 [facility] CampusKfnxquhUEMNCPUJUA0553-47-63 10:47:00 Test Item Value Reference Range Interpretation Comments PTT (test code = PTT) 30.5 s 22.9-35.8 [facility] CampusJctkqyhJJKMPNICST2333-86-87 10:47:00 Test Item Value Reference Range Interpretation Comments PT (test code = PT) 13.1 s 12.0-14.7 [facility]RthavviTNFSQKVRCTJZ4823-38-48 10:10:00 Test Item Value Reference Range Interpretation Comments AGAP (test code = AGAP) 13.4 10.0-20.0 [facility] SystemJfhmhjoSXGPLWKBEASZ3075-81-52 10:10:00 Test Item Value Reference Range Interpretation Comments eGFR (test code = eGFR) 120 [facility] SystemUyotpbqSQASWEBGBGEF4088-49-58 10:10:00 Test Item Value Reference Range Interpretation Comments Calcium Lvl (test code = Calcium Lvl) 8.9 8.5-10.5 [facility] SystemWsynspbZBSOKZKDGBKQ5028-20-41 10:10:00 Test Item Value Reference Range Interpretation Comments CO2 (test code = CO2) 26 24-32 [facility] SystemQmyhmctHCFPZEJFQSEW3994-28-34 10:10:00 Test Item Value Reference Range Interpretation Comments Potassium Lvl (test code = Potassium 4.4 3.5-5.1 Lvl) [facility] SystemXtdigcjXCOXBTANWDGJ3061-30-37 10:10:00 Test Item Value Reference Range Interpretation Comments Chloride Lvl (test code = Chloride Lvl) 104 95-109 [facility] SystemGrlpcasPYCEWDJSABPD2478-66-92 10:10:00 Test Item Value Reference Range Interpretation Comments Creatinine Lvl (test code = Creatinine 0.64 0.50-1.40 Lvl) [facility] SystemKbyqpgoCQAJHYWSCIMT3942-11-84 10:10:00 Test Item Value Reference Range Interpretation Comments Sodium Lvl (test code = Sodium Lvl) 139 135-145 [facility] SystemBghyontCCLUHNWJBLXW7336-62-37 10:10:00 Test Item Value Reference Range Interpretation Comments BUN (test code = BUN) 10 7-22 [facility] SystemLkwgtpbGPYSFJENWUMD9174-02-26 10:10:00 Test Item Value Reference Range Interpretation Comments Glucose Lvl (test code = Glucose Lvl) 95 70-99 [facility] CampusZguqhfqYPBIFRKNIB4894-18-94 10:10:00 Test Item Value Reference Range Interpretation Comments WBC (test code = WBC) 9.5 3.7-10.4 [facility] CampusKpxjbdwLTNROHMHWJ5524-70-48 10:10:00 Test Item Value Reference Range Interpretation Comments RBC (test code = RBC) 5.75 4.70-6.10 [facility] CampusZymqhqlTZKERQOGZZ4248-08-76 10:10:00 Test Item Value Reference Range Interpretation Comments Hgb (test code = Hgb) 13.8 14.0-18.0 [facility] CampusOagpatmRZYYMYEIGE3250-97-80 10:10:00 Test Item Value Reference Range Interpretation Comments MCV (test code = MCV) 75.5 80.0-94.0 [facility] CampusTcwtoxdKTKLWNENAO2271-70-23 10:10:00 Test Item Value Reference Range Interpretation Comments MCH (test code = MCH) 24.0 pg 27.0-31.0 [facility] CampusIgephggWQUNGKKOEN6914-20-20 10:10:00 Test Item Value Reference Range Interpretation Comments Hct (test code = Hct) 43.4 42.0-54.0 [facility] CampusHqbkilyGCRMKBMSSZ2406-28-54 10:10:00 Test Item Value Reference Range Interpretation Comments RDW (test code = RDW) 15.1 11.5-14.5 [facility] CampusGstkhgpWYBJEQTBZT4380-08-59 10:10:00 Test Item Value Reference Range Interpretation Comments MCHC (test code = MCHC) 31.8 32.0-36.0 [facility] CampusPbrtcplYAZBVRAFAQ0921-47-20 10:10:00 Test Item Value Reference Range Interpretation Comments MPV (test code = MPV) 9.3 7.4-10.4 [facility] CampusCfwsvvwQALXRTZZAO8453-37-62 10:10:00 Test Item Value Reference Range Interpretation Comments Platelet (test code = Platelet) 235 133-450 [facility] CampusKqssauxXXXRLNARWW4917-00-99 10:10:00 Test Item Value Reference Range Interpretation Comments Basophils # (test code 0.1 See_Comment [Aut omated message] The = Basophils #) system which generated this result tra nsmitted reference range : <=0.2. The reference r matthieu was not used to int erpret this result as normal/abnormal . [facility] CampusEqdolsvUURUIVSTLB4042-71-70 10:10:00 Test Item Value Reference Range Interpretation Comments Eosinophils # (test code 0.2 See_Comment [A utomated message] The = Eosinophils #) system whic h generated this result tra nsmitted reference range : <=0.5. The reference r matthieu was not used to int erpret this result as normal/abnormal . [facility] CampusTvvvqzdZZZJGLIARZ3940-69-08 10:10:00 Test Item Value Reference Range Interpretation Comments Microcyte (test code = 2+ *ABN*(06/28/15 Microcyte) 5:10 AM) [facility] CampusBlncrdoYQQFNPAOCF7362-25-50 10:10:00 Test Item Value Reference Range Interpretation Comments Segs (test code = Segs) 59.7 45.0-75.0 [facility] CampusEdogmtvIULOARCQIB0876-85-25 10:10:00 Test Item Value Reference Range Interpretation Comments Lymphocytes (test code = Lymphocytes) 28.2 20.0-40.0 [facility] CampusTphnayqXNHHSVUFTZ4054-99-74 10:10:00 Test Item Value Reference Range Interpretation Comments Eosinophils (test code = 2.1 See_Comment [A utomated message] The Eosinophils) system which ge nerated this result tra nsmitted reference range : <=4.0. The reference r matthieu was not used to int erpret this result as normal/abnormal . [facility] CampusPtrzyxcWQGSQKWSEQ2404-53-43 10:10:00 Test Item Value Reference Range Interpretation Comments Monocytes (test code = Monocytes) 9.4 2.0-12.0 [facility] CampusVdotcxxLZHQMDZJSV3611-27-24 10:10:00 Test Item Value Reference Range Interpretation Comments Basophils (test code = 0.6 See_Comment [Aut omated message] The Basophils) system which ge nerated this result tra nsmitted reference range : <=1.0. The reference r matthieu was not used to int erpret this result as normal/abnormal . [facility] CampusPzibwvpLMZCHXHLRC1796-39-04 10:10:00 Test Item Value Reference Range Interpretation Comments Monocytes # (test code 0.9 See_Comment [Aut omated message] The = Monocytes #) system which generated this result tra nsmitted reference range : <=0.8. The reference r matthieu was not used to int erpret this result as normal/abnormal . [facility] CampusPyanfdoUKWISEDYBS2750-09-53 10:10:00 Test Item Value Reference Range Interpretation Comments Segs-Bands # (test code = Segs-Bands #) 5.6 1.5-8.1 [facility] CampusLriwttmUACVAUYZEQ9189-66-79 10:10:00 Test Item Value Reference Range Interpretation Comments Lymphocytes # (test code = Lymphocytes 2.7 1.0-5.5 #) [facility]rrkqVKGXBSBJBMVL1815-67-22 10:04:00 Test Item Value Reference Range Interpretation Comments AGAP (test code = AGAP) 13.5 10.0-20.0 [facility] SystemAbfoakeFKCBQBHNIFKQ0493-82-19 10:04:00 Test Item Value Reference Range Interpretation Comments eGFR (test code = eGFR) 116 [facility] SystemTtdzknpBTFRWQOUBFAE6440-48-59 10:04:00 Test Item Value Reference Range Interpretation Comments Glucose Lvl (test code = Glucose Lvl) 93 70-99 [facility] SystemFepyghnBTSFHJWZVRAI5012-49-51 10:04:00 Test Item Value Reference Range Interpretation Comments BUN (test code = BUN) 11 7-22 [facility] SystemXjaryjmPXECHUJZICXJ0776-55-94 10:04:00 Test Item Value Reference Range Interpretation Comments Potassium Lvl (test code = Potassium 4.5 3.5-5.1 Lvl) [facility] SystemTmizaobMDUQVDNANKRI9680-07-39 10:04:00 Test Item Value Reference Range Interpretation Comments Chloride Lvl (test code = Chloride Lvl) 107 95-109 [facility] SystemFddsnqfWOKHWQNJPLJH2869-59-47 10:04:00 Test Item Value Reference Range Interpretation Comments Creatinine Lvl (test code = Creatinine 0.69 0.50-1.40 Lvl) [facility] SystemFvoscjqEMHZWFPECAWF8850-27-02 10:04:00 Test Item Value Reference Range Interpretation Comments Sodium Lvl (test code = Sodium Lvl) 141 135-145 [facility] SystemZrocnhaABBXQHSGLXZO1055-83-97 10:04:00 Test Item Value Reference Range Interpretation Comments Calcium Lvl (test code = Calcium Lvl) 8.6 8.5-10.5 [facility] SystemUjhpxwcURCQCAFWLTNZ3077-92-63 10:04:00 Test Item Value Reference Range Interpretation Comments CO2 (test code = CO2) 25 24-32 [facility] CampusLznjjiqVKVQLVCTKQ6983-80-86 10:04:00 Test Item Value Reference Range Interpretation Comments Microcyte (test code = 1+ *ABN*(06/21/15 5:04 Microcyte) AM) [facility] CampusTsapmpaXEGTUBDAWU6815-95-70 10:04:00 Test Item Value Reference Range Interpretation Comments Basophils # (test code 0.1 See_Comment [Aut omated message] The = Basophils #) system which generated this result tra nsmitted reference range : <=0.2. The reference r matthieu was not used to int erpret this result as normal/abnormal . [facility] CampusNkupzijSFJYJWRIAM2163-90-14 10:04:00 Test Item Value Reference Range Interpretation Comments Eosinophils # (test code 0.2 See_Comment [A utomated message] The = Eosinophils #) system whic h generated this result tra nsmitted reference range : <=0.5. The reference r matthieu was not used to int erpret this result as normal/abnormal . [facility] CampusWfjjnhmJUTSKIWLGY1252-48-08 10:04:00 Test Item Value Reference Range Interpretation Comments Monocytes # (test code 0.7 See_Comment [Aut omated message] The = Monocytes #) system which generated this result tra nsmitted reference range : <=0.8. The reference r matthieu was not used to int erpret this result as normal/abnormal . [facility] CampusWktqochRCGEMPPQWM3204-74-40 10:04:00 Test Item Value Reference Range Interpretation Comments Segs-Bands # (test code = Segs-Bands #) 5.0 1.5-8.1 [facility] CampusOtmfczbNIGCTVOOVZ9177-97-19 10:04:00 Test Item Value Reference Range Interpretation Comments Basophils (test code = 0.6 See_Comment [Aut omated message] The Basophils) system which ge nerated this result tra nsmitted reference range : <=1.0. The reference r matthieu was not used to int erpret this result as normal/abnormal . [facility] CampusUtaynfgRKXLXCWCXV6767-88-51 10:04:00 Test Item Value Reference Range Interpretation Comments Eosinophils (test code = 2.1 See_Comment [A utomated message] The Eosinophils) system which ge nerated this result tra nsmitted reference range : <=4.0. The reference r matthieu was not used to int erpret this result as normal/abnormal . [facility] CampusDfmpceuQPEWEPBROS3095-10-14 10:04:00 Test Item Value Reference Range Interpretation Comments Monocytes (test code = Monocytes) 8.6 2.0-12.0 [facility] CampusOrganvxKWVRUYHRUV7590-87-13 10:04:00 Test Item Value Reference Range Interpretation Comments Lymphocytes (test code = Lymphocytes) 30.3 20.0-40.0 [facility] CampusVqtlyinTXQUAQRUNC9382-80-94 10:04:00 Test Item Value Reference Range Interpretation Comments Segs (test code = Segs) 58.4 45.0-75.0 [facility] CampusGtsskovSKTGDDTBDK8528-35-03 10:04:00 Test Item Value Reference Range Interpretation Comments Plt Morph (test code = Normal (06/21/15 5:04 AM) Plt Morph) [facility] CampusPoxnvtlCHKVOLKFCM3433-02-32 10:04:00 Test Item Value Reference Range Interpretation Comments Lymphocytes # (test code = Lymphocytes 2.6 1.0-5.5 #) [facility] CampusMakflyaMSAYRFBZXG4761-91-97 10:04:00 Test Item Value Reference Range Interpretation Comments MPV (test code = MPV) 9.5 7.4-10.4 [facility] CampusYlmcsbyAIJVCFXLQD9234-45-59 10:04:00 Test Item Value Reference Range Interpretation Comments Platelet (test code = Platelet) 273 133-450 [facility] CampusHzorjssYTRPOIMULY9986-19-32 10:04:00 Test Item Value Reference Range Interpretation Comments MCH (test code = MCH) 23.5 pg 27.0-31.0 [facility] CampusGlkshneSGSCYSTGDE6146-47-63 10:04:00 Test Item Value Reference Range Interpretation Comments MCV (test code = MCV) 76.7 80.0-94.0 [facility] CampusFgkkecqZVZYZSSNMK7476-29-24 10:04:00 Test Item Value Reference Range Interpretation Comments RDW (test code = RDW) 15.2 11.5-14.5 [facility] CampusEcwxfljZKQBXLBYYF9770-05-92 10:04:00 Test Item Value Reference Range Interpretation Comments MCHC (test code = MCHC) 30.7 32.0-36.0 [facility] CampusTfddbcrKXUUJUBVPS7465-75-43 10:04:00 Test Item Value Reference Range Interpretation Comments Hct (test code = Hct) 43.5 42.0-54.0 [facility] CampusGuofoncFNJAANCMFB9650-69-35 10:04:00 Test Item Value Reference Range Interpretation Comments Hgb (test code = Hgb) 13.3 14.0-18.0 [facility] CampusKoyuxtgNKVYCEBMEI3930-18-77 10:04:00 Test Item Value Reference Range Interpretation Comments RBC (test code = RBC) 5.67 4.70-6.10 [facility] CampusOfyvnccNKUSILNHEN1196-78-06 10:04:00 Test Item Value Reference Range Interpretation Comments WBC (test code = WBC) 8.6 3.7-10.4 [facility]UzwxuvkWOGNQDCUGCII4008-83-66 09:06:00 Test Item Value Reference Range Interpretation Comments AGAP (test code = AGAP) 12.1 10.0-20.0 [facility] SystemGhtvearVRCBFVZNPSOZ3912-08-38 09:06:00 Test Item Value Reference Range Interpretation Comments eGFR (test code = eGFR) 121 [facility] SystemYszockzPWQNEXUVYWAG0105-94-70 09:06:00 Test Item Value Reference Range Interpretation Comments Creatinine Lvl (test code = Creatinine 0.64 0.50-1.40 Lvl) [facility] SystemTrwpdxjYRRQJGMGMSJE2682-31-73 09:06:00 Test Item Value Reference Range Interpretation Comments BUN (test code = BUN) 12 7-22 [facility] SystemByzbuzaHNUACRPEBXIT0691-37-32 09:06:00 Test Item Value Reference Range Interpretation Comments Glucose Lvl (test code = Glucose Lvl) 91 70-99 [facility] SystemAoceuxfDDLLHFHRMTJI4896-00-96 09:06:00 Test Item Value Reference Range Interpretation Comments Chloride Lvl (test code = Chloride Lvl) 107 95-109 [facility] SystemHxkclleELLXFDRHCZBJ4165-66-35 09:06:00 Test Item Value Reference Range Interpretation Comments Potassium Lvl (test code = Potassium 4.1 3.5-5.1 Lvl) [facility] SystemHuodselSBKNEERPZVHC2523-40-16 09:06:00 Test Item Value Reference Range Interpretation Comments CO2 (test code = CO2) 25 24-32 [facility] SystemUlcbjgwDDCGXSRCIGKE6928-87-92 09:06:00 Test Item Value Reference Range Interpretation Comments Sodium Lvl (test code = Sodium Lvl) 140 135-145 [facility] SystemZbqiymfOQZRWPBPZJUJ8230-89-89 09:06:00 Test Item Value Reference Range Interpretation Comments Calcium Lvl (test code = Calcium Lvl) 8.4 8.5-10.5 [facility] CampusIevqurmPPPRRKZHOS4421-36-92 09:06:00 Test Item Value Reference Range Interpretation Comments MCV (test code = MCV) 75.6 80.0-94.0 [facility] CampusKescgenNBEJIRECJO7250-03-88 09:06:00 Test Item Value Reference Range Interpretation Comments Hct (test code = Hct) 42.8 42.0-54.0 [facility] CampusZltfqgsMALLTDZVAM6889-88-89 09:06:00 Test Item Value Reference Range Interpretation Comments MPV (test code = MPV) 9.0 7.4-10.4 [facility] CampusHlghifbCNLLUFMGXE0300-70-12 09:06:00 Test Item Value Reference Range Interpretation Comments Platelet (test code = Platelet) 326 133-450 [facility] CampusQcrzjbcFXLVQDWSTF7059-95-37 09:06:00 Test Item Value Reference Range Interpretation Comments WBC (test code = WBC) 9.4 3.7-10.4 [facility] CampusTsyhqswLOLCPLXARP7667-17-36 09:06:00 Test Item Value Reference Range Interpretation Comments RBC (test code = RBC) 5.66 4.70-6.10 [facility] CampusEmhquzgMILSIJXZYQ8655-17-08 09:06:00 Test Item Value Reference Range Interpretation Comments MCH (test code = MCH) 24.0 pg 27.0-31.0 [facility] CampusKplwavqHIKDPBDISG0541-23-02 09:06:00 Test Item Value Reference Range Interpretation Comments Hgb (test code = Hgb) 13.6 14.0-18.0 [facility] CampusSfvhllvUJMOWBEJPU2518-08-61 09:06:00 Test Item Value Reference Range Interpretation Comments RDW (test code = RDW) 14.8 11.5-14.5 [facility] CampusCwqfusfYRAFUHHIKZ2705-09-08 09:06:00 Test Item Value Reference Range Interpretation Comments MCHC (test code = MCHC) 31.8 32.0-36.0 [facility] CampusAhatxacMDQFMYNGYP0533-36-42 09:06:00 Test Item Value Reference Range Interpretation Comments Eosinophils # (test code 0.2 See_Comment [A utomated message] The = Eosinophils #) system whic h generated this result tra nsmitted reference range : <=0.5. The reference r matthieu was not used to int erpret this result as normal/abnormal . [facility] CampusNpegfwvPWZNVLYEGV4921-06-86 09:06:00 Test Item Value Reference Range Interpretation Comments Basophils # (test code 0.0 See_Comment [Aut omated message] The = Basophils #) system which generated this result tra nsmitted reference range : <=0.2. The reference r matthieu was not used to int erpret this result as normal/abnormal . [facility] CampusPbtghaiPBCKTCIMNQ9349-87-22 09:06:00 Test Item Value Reference Range Interpretation Comments Microcyte (test code = 2+ *ABN*(06/15/15 Microcyte) 4:06 AM) [facility] CampusDqmttlnRFKGXLIRUF9299-00-56 09:06:00 Test Item Value Reference Range Interpretation Comments Eosinophils (test code = 2.0 See_Comment [A utomated message] The Eosinophils) system which ge nerated this result tra nsmitted reference range : <=4.0. The reference r matthieu was not used to int erpret this result as normal/abnormal . [facility] CampusRfrjluqWRXYKRKFUD3913-04-06 09:06:00 Test Item Value Reference Range Interpretation Comments Basophils (test code = 0.4 See_Comment [Aut omated message] The Basophils) system which ge nerated this result tra nsmitted reference range : <=1.0. The reference r matthieu was not used to int erpret this result as normal/abnormal . [facility] CampusZripgfoMGYSRJPTSG8139-53-85 09:06:00 Test Item Value Reference Range Interpretation Comments Segs-Bands # (test code = Segs-Bands #) 5.8 1.5-8.1 [facility] CampusHcqhfxhGLPLYMEPGE2843-67-17 09:06:00 Test Item Value Reference Range Interpretation Comments Monocytes (test code = Monocytes) 9.6 2.0-12.0 [facility] CampusYarxaisIXMHMOROPT2106-03-04 09:06:00 Test Item Value Reference Range Interpretation Comments Lymphocytes (test code = Lymphocytes) 26.3 20.0-40.0 [place] 359826-03-29 09:06:00 Test Item Value Reference Range Interpretation Comments Segs (test code = Segs) 61.7 45.0-75.0 [facility] CampusIyocdgqUTHVXLCSRF3582-35-96 09:06:00 Test Item Value Reference Range Interpretation Comments Monocytes # (test code 0.9 See_Comment [Aut omated message] The = Monocytes #) system which generated this result tra nsmitted reference range : <=0.8. The reference r matthieu was not used to int erpret this result as normal/abnormal . [place] 359826-03-29 09:06:00 Test Item Value Reference Range Interpretation Comments Lymphocytes # (test code = Lymphocytes 2.5 1.0-5.5 #) [facility] CampusLfmmropTEIPOVJKGX4953-90-06 17:04:00 Test Item Value Reference Range Interpretation Comments Plt Morph (test code = Normal (06/14/15 12:04 Plt Morph) PM) [facility]2016-03-24 10:18:00 Test Item Value Reference Range Interpretation Comments Phosphorus (test code = Phosphorus) 2.7 2.5-4.5 [facility]2016-03-24 10:18:00 Test Item Value Reference Range Interpretation Comments Alk Phos (test code = Alk Phos) 104 39-136 [facility]2016-03-24 10:18:00 Test Item Value Reference Range Interpretation Comments ALT (test code = ALT) 54 See_Comment [Auto mated message] The system which ge nerated this result transmit yanely reference range : <=65. The reference range was not used to interpr et this result as brielle l/abnormal. [facility]2016-03-24 10:18:00 Test Item Value Reference Range Interpretation Comments AST (test code = AST) 33 See_Comment [Auto mated message] The system which ge nerated this result transmit yanely reference range : <=37. The reference range was not used to interpr et this result as brielle l/abnormal. [facility] [id number] 10:18:00 Test Item Value Reference Range Interpretation Comments Bili Total (test code = Bili Total) 0.2 0.2-1.3 [facility] [id number] 10:18:00 Test Item Value Reference Range Interpretation Comments Albumin Lvl (test code = Albumin Lvl) 3.4 3.5-5.0 [facility]2016-03-24 10:18:00 Test Item Value Reference Range Interpretation Comments Total Protein (test code = Total 7.6 6.4-8.4 Protein) [facility] [id number] 10:18:00 Test Item Value Reference Range Interpretation Comments A/G Ratio (test code = A/G Ratio) 0.8 0.7-1.6 [facility]2016-03-24 10:18:00 Test Item Value Reference Range Interpretation Comments B/C Ratio (test code = B/C Ratio) 18 -25 [facility]2016-03-24 10:18:00 Test Item Value Reference Range Interpretation Comments Globulin (test code = Globulin) 4.2 2.0-4.0 [facility] [id number] 10:18:00 Test Item Value Reference Range Interpretation Comments Magnesium Lvl (test code = Magnesium 2.0 1.8-2.4 Lvl) [facility] CampusFmiokefRYEJHZHOSI8447-88-98 10:18:00 Test Item Value Reference Range Interpretation Comments PTT (test code = PTT) 32.7 s 22.9-35.8 [facility]WwejsxfEGTOQNNROP4647-[facility]-89 10:18:00 Test Item Value Reference Range Interpretation Comments PT (test code = PT) 12.7 s 12.0-14.7 [facility] AlmaCpiarlbFFIQFSLFKM8333-10-13 10:18:00 Test Item Value Reference Range Interpretation Comments INR (test code = INR) 0.92 0.85-1.17 [facility]anojteGOQYTCTGUI7247-34-51 10:18:00 Test Item Value Reference Range Interpretation Comments Prealbumin (test code = Prealbumin) 15.0 18.0-45.0 [facility] [id number] 10:18:00 Test Item Value Reference Range Interpretation Comments UA Leuk Est (test Negative (06/10/15 5:18 code = UA Leuk Est) AM) [facility] AND [id number] 10:18:00 Test Item Value Reference Range Interpretation Comments UA Nitrite (test code Negative (06/10/15 5:18 = UA Nitrite) AM) [facility] AND [id number] 10:18:00 Test Item Value Reference Range Interpretation Comments UA Blood (test code = Negative (06/10/15 5:18 UA Blood) AM) [facility] AND [id number] 10:18:00 Test Item Value Reference Range Interpretation Comments UA Urobilinogen (test code = UA 0.2 0.1-1.0 Urobilinogen) [facility] AND [id number] 10:18:00 Test Item Value Reference Range Interpretation Comments UA Bili (test code = Negative *NA*(06/10/15 UA Bili) 5:18 AM) [facility] AND [id number] 10:18:00 Test Item Value Reference Range Interpretation Comments UA Ketones (test code Negative *NA*(06/10/15 = UA Ketones) 5:18 AM) [facility] AND [id number] 10:18:00 Test Item Value Reference Range Interpretation Comments UA Protein (test code Negative (06/10/15 5:18 = UA Protein) AM) [facility] AND [id number] 10:18:00 Test Item Value Reference Range Interpretation Comments UA pH (test code = UA pH) 5.5 1 5.0-8.0 [facility] AND [id number] 10:18:00 Test Item Value Reference Range Interpretation Comments UA Glucose (test code Negative (06/10/15 5:18 = UA Glucose) AM) [facility] AND [id number] 10:18:00 Test Item Value Reference Range Interpretation Comments UA Spec Grav (test code = UA Spec 1.025 1 Grav) [facility] AND [id number] 10:18:00 Test Item Value Reference Range Interpretation Comments UA Turbidity (test code Cloudy *ABN*(06/10/15 = UA Turbidity) 5:18 AM) [facility] AND [id number] 10:18:00 Test Item Value Reference Range Interpretation Comments UA Color (test code = Yellow *NA*(06/10/15 UA Color) 5:18 AM) [facility] AND [id number] 10:18:00 Test Item Value Reference Range Interpretation Comments UA Bacteria (test code = UA Occasional /HPF Bacteria) [facility] AND [id number] 10:18:00 Test Item Value Reference Range Interpretation Comments UA Amorph Danyelle (test code = UA Many /HPF Amorph Danyelle) [facility] AND [id number] 10:18:00 Test Item Value Reference Range Interpretation Comments UA Sq Epi (test code = None Seen (06/10/15 5:18 UA Sq Epi) AM) [facility] ResourcesQzkbvokHLZKASFOTX8899-64-79 14:45:00 Test Item Value Reference Range Interpretation Comments PTT (test code = PTT) 30.4 s 22.9-35.8 [facility] NfyvockVAYFDQFGIC9784-22-90 14:45:00 Test Item Value Reference Range Interpretation Comments INR (test code = INR) 1.03 0.85-1.17 [facility] ResourcesXiofaryDJYUMJLCHV5728-18-21 14:45:00 Test Item Value Reference Range Interpretation Comments PT (test code = PT) 13.8 s 12.0-14.7 [facility] [employer] [facility] [id number] 13:50:00 Test Item Value Reference Range Interpretation Comments Antibody Scrn (test Negative (04/27/15 7:50 code = Antibody Scrn) AM) [facility] [employer] [facility] [id number] 13:50:00 Test Item Value Reference Range Interpretation Comments ABO/Rh (test code = ABO/Rh) O POS [facility] [employer] [id number] 13:50:00 Test Item Value Reference Range Interpretation Comments eGFR (test code = eGFR) 111 [facility] [employer] [id number] 13:50:00 Test Item Value Reference Range Interpretation Comments Calcium Lvl (test code = Calcium Lvl) 9.3 8.5-10.5 [facility] [employer] [id number] 13:50:00 Test Item Value Reference Range Interpretation Comments Chloride Lvl (test code = Chloride Lvl) 107 95-109 [facility] [employer] [id number] 13:50:00 Test Item Value Reference Range Interpretation Comments Potassium Lvl (test code = Potassium 4.5 3.5-5.1 Lvl) [facility]2016-02-09 13:50:00 Test Item Value Reference Range Interpretation Comments Sodium Lvl (test code = Sodium Lvl) 140 135-145 [facility]2016-02-09 13:50:00 Test Item Value Reference Range Interpretation Comments CO2 (test code = CO2) 27 24-32 [facility]2016-02-09 13:50:00 Test Item Value Reference Range Interpretation Comments Glucose Lvl (test code = Glucose Lvl) 105 70-99 [place] [id number] 13:50:00 Test Item Value Reference Range Interpretation Comments BUN (test code = BUN) 10 7-22 [place] 400776-02-09 13:50:00 Test Item Value Reference Range Interpretation Comments Creatinine Lvl (test code = Creatinine 0.78 0.50-1.40 Lvl) [facility]2016-02-09 13:50:00 Test Item Value Reference Range Interpretation Comments AGAP (test code = AGAP) 10.5 10.0-20.0 [place] 359826-02-09 13:50:00 Test Item Value Reference Range Interpretation Comments Monocytes # (test code 0.4 See_Comment [Aut omated message] The = Monocytes #) system which generated this result tra nsmitted reference range : <=0.8. The reference r matthieu was not used to int erpret this result as normal/abnormal . [facility] CampusXkdqakoIZXHBEPJTH9082-49-88 13:50:00 Test Item Value Reference Range Interpretation Comments Basophils # (test code 0.0 See_Comment [Aut omated message] The = Basophils #) system which generated this result tra nsmitted reference range : <=0.2. The reference r matthieu was not used to int erpret this result as normal/abnormal . [facility] CampusIuuwhdbTVBQRPTAUR2763-62-31 13:50:00 Test Item Value Reference Range Interpretation Comments Eosinophils # (test code 0.2 See_Comment [A utomated message] The = Eosinophils #) system whic h generated this result tra nsmitted reference range : <=0.5. The reference r matthieu was not used to int erpret this result as normal/abnormal . [facility] CampusQximakhKIANWAZBYO0894-93-17 13:50:00 Test Item Value Reference Range Interpretation Comments Lymphocytes # (test code = Lymphocytes 2.1 1.0-5.5 #) [facility] CampusNqwviotYEWTLOGVDS6665-92-22 13:50:00 Test Item Value Reference Range Interpretation Comments Microcyte (test code = 1+ *ABN*(04/27/15 7:50 Microcyte) AM) [facility] CampusGknjkohTVGWIRMEEU2169-82-07 13:50:00 Test Item Value Reference Range Interpretation Comments Segs (test code = Segs) 65.2 45.0-75.0 [facility] CampusWjyqvszYMUKQXOEHH1591-10-38 13:50:00 Test Item Value Reference Range Interpretation Comments Monocytes (test code = Monocytes) 5.3 2.0-12.0 [facility] CampusIoufziwAYGPSFAYJB4902-63-75 13:50:00 Test Item Value Reference Range Interpretation Comments Basophils (test code = 0.4 See_Comment [Aut omated message] The Basophils) system which ge nerated this result tra nsmitted reference range : <=1.0. The reference r matthieu was not used to int erpret this result as normal/abnormal . [facility] CampusDvjhuvoVYMENTAUAO7517-37-44 13:50:00 Test Item Value Reference Range Interpretation Comments Lymphocytes (test code = Lymphocytes) 26.8 20.0-40.0 [facility] CampusWjimubkTGIMYKPGVK8818-02-61 13:50:00 Test Item Value Reference Range Interpretation Comments Segs-Bands # (test code = Segs-Bands #) 5.2 1.5-8.1 [facility] CampusWxwwlzhWGEISMKNXZ3797-62-95 13:50:00 Test Item Value Reference Range Interpretation Comments Eosinophils (test code = 2.3 See_Comment [A utomated message] The Eosinophils) system which ge nerated this result tra nsmitted reference range : <=4.0. The reference r matthieu was not used to int erpret this result as normal/abnormal . [facility] CampusKsodlgnLTRWGHHDNC5333-24-20 13:50:00 Test Item Value Reference Range Interpretation Comments Hgb (test code = Hgb) 15.2 14.0-18.0 [facility] CampusWjivqmwPXPMOBGYVF0735-01-50 13:50:00 Test Item Value Reference Range Interpretation Comments WBC (test code = WBC) 7.9 3.7-10.4 [facility] CampusKjlkzuuZNUVDKQYUZ1675-48-64 13:50:00 Test Item Value Reference Range Interpretation Comments RBC (test code = RBC) 5.96 4.70-6.10 [facility] CampusResynstUMBWJBGTGT0405-62-41 13:50:00 Test Item Value Reference Range Interpretation Comments MCH (test code = MCH) 25.4 pg 27.0-31.0 [facility] CampusTverwwwNTKPMIMRRT4369-44-90 13:50:00 Test Item Value Reference Range Interpretation Comments MCHC (test code = MCHC) 32.3 32.0-36.0 [facility] CampusIerwbktUHYZIKNNLZ4803-58-87 13:50:00 Test Item Value Reference Range Interpretation Comments RDW (test code = RDW) 15.3 11.5-14.5 [facility] CampusLelbouaBXCBXXUXFZ6741-07-71 13:50:00 Test Item Value Reference Range Interpretation Comments Platelet (test code = Platelet) 313 133-450 [facility] CampusFlujweoQLLHOSHCYX4297-31-30 13:50:00 Test Item Value Reference Range Interpretation Comments MPV (test code = MPV) 8.2 7.4-10.4 [facility] CampusZcsppslNNQHEZXJAL3198-29-90 13:50:00 Test Item Value Reference Range Interpretation Comments MCV (test code = MCV) 78.6 80.0-94.0 [facility] CampusJwmvcodDLBCICSKBU1367-03-91 13:50:00 Test Item Value Reference Range Interpretation Comments Hct (test code = Hct) 46.9 42.0-54.0 [facility]2015-01-18 14:22:00 Test Item Value Reference Range Interpretation Comments Globulin (test code = Globulin) 4.3 2.0-4.0 [facility]2015-01-18 14:22:00 Test Item Value Reference Range Interpretation Comments A/G Ratio (test code = A/G Ratio) 0.8 0.7-1.6 [facility]2015-01-18 14:22:00 Test Item Value Reference Range Interpretation Comments B/C Ratio (test code = B/C Ratio) 20 6-25 [facility]2015-01-18 14:22:00 Test Item Value Reference Range Interpretation Comments AGAP (test code = AGAP) 7.0 10.0-20.0 [facility]2015-01-18 14:22:00 Test Item Value Reference Range Interpretation Comments Potassium Lvl (test code = Potassium 4.0 3.5-5.1 Lvl) [facility]2015-01-18 14:22:00 Test Item Value Reference Range Interpretation Comments Calcium Lvl (test code = Calcium Lvl) 8.8 8.5-10.5 [place] 400775-01-18 14:22:00 Test Item Value Reference Range Interpretation Comments Chloride Lvl (test code = Chloride Lvl) 105 95-109 [facility]2015-01-18 14:22:00 Test Item Value Reference Range Interpretation Comments Sodium Lvl (test code = Sodium Lvl) 139 135-145 [facility]2015-01-18 14:22:00 Test Item Value Reference Range Interpretation Comments eGFR (test code = eGFR) 117 [facility]2015-01-18 14:22:00 Test Item Value Reference Range Interpretation Comments AST (test code = AST) 10 See_Comment [Auto mated message] The system which ge nerated this result transmit yanely reference range : <=37. The reference range was not used to interpr et this result as brielle l/abnormal. [facility]2015-01-18 14:22:00 Test Item Value Reference Range Interpretation Comments Creatinine Lvl (test code = Creatinine 0.7 0.5-1.4 Lvl) [facility]2015-01-18 14:22:00 Test Item Value Reference Range Interpretation Comments BUN (test code = BUN) 14 7-22 [facility]2015-01-18 14:22:00 Test Item Value Reference Range Interpretation Comments CO2 (test code = CO2) 31 24-32 [facility]2015-01-18 14:22:00 Test Item Value Reference Range Interpretation Comments Total Protein (test code = Total 7.8 6.4-8.4 Protein) [facility]2015-01-18 14:22:00 Test Item Value Reference Range Interpretation Comments ALT (test code = ALT) 22 See_Comment [Auto mated message] The system which ge nerated this result transmit yanely reference range : <=65. The reference range was not used to interpr et this result as brielle l/abnormal. [facility]2015-01-18 14:22:00 Test Item Value Reference Range Interpretation Comments Albumin Lvl (test code = Albumin Lvl) 3.5 3.5-5.0 [facility]2015-01-18 14:22:00 Test Item Value Reference Range Interpretation Comments Alk Phos (test code = Alk Phos) 117 39-136 [facility]2015-01-18 14:22:00 Test Item Value Reference Range Interpretation Comments Bili Total (test code = Bili Total) 0.2 0.2-1.3 [facility]2015-01-18 14:22:00 Test Item Value Reference Range Interpretation Comments Glucose Lvl (test code = Glucose Lvl) 90 70-99 [facility] CampusGdtsqliXDMGJNQBOU2656-97-46 14:22:00 Test Item Value Reference Range Interpretation Comments Plt Morph (test code = Normal (04/05/14 8:22 Plt Morph) AM) [place] 359825-01-18 14:22:00 Test Item Value Reference Range Interpretation Comments RBC Morph (test code = Normal (04/05/14 8:22 RBC Morph) AM) [facility] CampusCmeedcfCTJITCRIDP5354-37-73 14:22:00 Test Item Value Reference Range Interpretation Comments Segs-Bands # (test code = Segs-Bands #) 4.9 1.5-8.1 [facility] CampusHgfghgcMLLEZELXEL2451-81-50 14:22:00 Test Item Value Reference Range Interpretation Comments Monocytes # (test code 0.7 See_Comment [Aut omated message] The = Monocytes #) system which generated this result tra nsmitted reference range : <=0.8. The reference r matthieu was not used to int erpret this result as normal/abnormal . [facility] CampusJwovigeMLWXQJBUOV7167-39-45 14:22:00 Test Item Value Reference Range Interpretation Comments Eosinophils # (test code 0.2 See_Comment [A utomated message] The = Eosinophils #) system whic h generated this result tra nsmitted reference range : <=0.5. The reference r matthieu was not used to int erpret this result as normal/abnormal . [place] 359825-01-18 14:22:00 Test Item Value Reference Range Interpretation Comments Lymphocytes # (test code = Lymphocytes 2.3 1.0-5.5 #) [facility] CampusScnaaqkRNYSWVTKUY7212-25-30 14:22:00 Test Item Value Reference Range Interpretation Comments Monocytes (test code = Monocytes) 9.1 2.0-12.0 [facility] CampusLrosphjRNUOQALGMN8432-20-05 14:22:00 Test Item Value Reference Range Interpretation Comments Lymphocytes (test code = Lymphocytes) 27.9 20.0-40.0 [facility] CampusAtqtswxLWTIEIGTOI1605-91-03 14:22:00 Test Item Value Reference Range Interpretation Comments Basophils (test code = 0.9 See_Comment [Aut omated message] The Basophils) system which ge nerated this result tra nsmitted reference range : <=1.0. The reference r matthieu was not used to int erpret this result as normal/abnormal . [facility] CampusYudyyxeRNSNTGQREX8142-92-33 14:22:00 Test Item Value Reference Range Interpretation Comments Eosinophils (test code = 2.0 See_Comment [A utomated message] The Eosinophils) system which ge nerated this result tra nsmitted reference range : <=4.0. The reference r matthieu was not used to int erpret this result as normal/abnormal . [facility] CampusOycvsdvWCTTMNCYJR9570-27-12 14:22:00 Test Item Value Reference Range Interpretation Comments Segs (test code = Segs) 60.1 45.0-75.0 [facility] CampusYawbiraLQCAQJSNNO2892-61-04 14:22:00 Test Item Value Reference Range Interpretation Comments Microcyte (test code = 3+ *NA*(04/05/14 8:22 Microcyte) AM) [facility] CampusBmzddjeYQCAUBNXJH2433-67-17 14:22:00 Test Item Value Reference Range Interpretation Comments Large Plt (test code = Large Plt) Slight [facility] CampusTishvckNIJTNPHIGF1222-05-36 14:22:00 Test Item Value Reference Range Interpretation Comments Basophils # (test code 0.1 See_Comment [Aut omated message] The = Basophils #) system which generated this result tra nsmitted reference range : <=0.2. The reference r matthieu was not used to int erpret this result as normal/abnormal . [facility] CampusLsxfictBWWGAUJCMS2049-20-88 14:22:00 Test Item Value Reference Range Interpretation Comments INR (test code = INR) 0.94 0.85-1.17 [facility] CampusOwzbossBGZQUQSFHK7119-96-84 14:22:00 Test Item Value Reference Range Interpretation Comments PT (test code = PT) 12.5 s 12.0-14.7 [facility] CampusEnquzwfWAAWLAFTUO0072-49-42 14:22:00 Test Item Value Reference Range Interpretation Comments PTT (test code = PTT) 33.1 s 22.9-35.8 [facility] CampusYimqruxOKJREAQMDC2737-06-79 14:22:00 Test Item Value Reference Range Interpretation Comments MPV (test code = MPV) 8.1 7.4-10.4 [facility] CampusLsbwkmnRRQUICNIZR7383-33-54 14:22:00 Test Item Value Reference Range Interpretation Comments Platelet (test code = Platelet) 381 133-450 [facility] CampusEitgaitXRFUKXLELJ9038-70-50 14:22:00 Test Item Value Reference Range Interpretation Comments MCHC (test code = MCHC) 31.3 32.0-36.0 [facility] CampusEcsawhiFWNCSFRAHM6683-55-11 14:22:00 Test Item Value Reference Range Interpretation Comments RBC (test code = RBC) 5.58 4.70-6.10 [facility] CampusSrvqcfjLLSZWQSNRK1607-54-35 14:22:00 Test Item Value Reference Range Interpretation Comments Hgb (test code = Hgb) 12.0 14.0-18.0 [facility] CampusZohinacVDATJXIGWF7391-13-11 14:22:00 Test Item Value Reference Range Interpretation Comments RDW (test code = RDW) 18.2 11.5-14.5 [facility] CampusNyzfqjtEFVCKUATXG5335-73-41 14:22:00 Test Item Value Reference Range Interpretation Comments Hct (test code = Hct) 38.3 42.0-54.0 [facility] CampusIbyirpjTSAEKNWBQZ7667-23-73 14:22:00 Test Item Value Reference Range Interpretation Comments MCH (test code = MCH) 21.5 pg 27.0-31.0 [facility] CampusUlzsdspUNGJYNQFZO7046-22-16 14:22:00 Test Item Value Reference Range Interpretation Comments MCV (test code = MCV) 68.7 80.0-94.0 [facility] CampusGmzsvvjQNQMGQQSGN7693-16-16 14:22:00 Test Item Value Reference Range Interpretation Comments WBC (test code = WBC) 8.2 3.7-10.4 [facility] [id number] 07:30:00 Test Item Value Reference Range Interpretation Comments eGFR (test code = eGFR) 135 [facility] USMSZ7246-43-05 07:30:00 Test Item Value Reference Range Interpretation Comments Glucose Lvl (test code = Glucose Lvl) 102 70-99 [facility]2014-11-10 07:30:00 Test Item Value Reference Range Interpretation Comments Potassium Lvl (test code = Potassium 3.9 3.5-5.1 Lvl) [facility]2014-11-10 07:30:00 Test Item Value Reference Range Interpretation Comments Chloride Lvl (test code = Chloride Lvl) 108 95-109 [facility]2014-11-10 07:30:00 Test Item Value Reference Range Interpretation Comments CO2 (test code = CO2) 21 24-32 [facility]2014-11-10 07:30:00 Test Item Value Reference Range Interpretation Comments BUN (test code = BUN) 6 7-22 [facility]2014-11-10 07:30:00 Test Item Value Reference Range Interpretation Comments Creatinine Lvl (test code = Creatinine 0.5 0.5-1.4 Lvl) [facility]2014-11-10 07:30:00 Test Item Value Reference Range Interpretation Comments Sodium Lvl (test code = Sodium Lvl) 140 135-145 [facility]2014-11-10 07:30:00 Test Item Value Reference Range Interpretation Comments Calcium Lvl (test code = Calcium Lvl) 8.0 8.5-10.5 [facility]2014-11-10 07:30:00 Test Item Value Reference Range Interpretation Comments AGAP (test code = AGAP) 14.9 10.0-20.0 [facility] CampusCtnnzzjRRNHCTXUSO2972-46-46 07:30:00 Test Item Value Reference Range Interpretation Comments INR (test code = INR) 0.95 0.85-1.17 [facility] CampusEyaxdfeEEUYTHLWQW2444-86-93 07:30:00 Test Item Value Reference Range Interpretation Comments PT (test code = PT) 12.7 s 12.0-14.7 [facility] CampusCcnkhjoLVVYUBGROD7029-82-42 07:30:00 Test Item Value Reference Range Interpretation Comments PTT (test code = PTT) 38.6 s 22.9-35.8 [place] 359824-11-10 07:30:00 Test Item Value Reference Range Interpretation Comments Microcyte (test code = 2+ *ABN*(01/26/14 Microcyte) 1:30 AM) [facility] CampusOzvvtjxMPTZYSGSLD4588-26-18 07:30:00 Test Item Value Reference Range Interpretation Comments Eosinophils # (test code 0.2 See_Comment [A utomated message] The = Eosinophils #) system whic h generated this result tra nsmitted reference range : <=0.5. The reference r matthieu was not used to int erpret this result as normal/abnormal . [facility] CampusMeazuhwMLKXWYEVRA5705-66-27 07:30:00 Test Item Value Reference Range Interpretation Comments Lymphocytes # (test code = Lymphocytes 1.8 1.0-5.5 #) [facility] CampusPqpcogiZNXECUZOIW6026-42-49 07:30:00 Test Item Value Reference Range Interpretation Comments Monocytes # (test code 0.6 See_Comment [Aut omated message] The = Monocytes #) system which generated this result tra nsmitted reference range : <=0.8. The reference r matthieu was not used to int erpret this result as normal/abnormal . [facility] CampusWbufhkpHCYGFWATBS7698-60-21 07:30:00 Test Item Value Reference Range Interpretation Comments Segs-Bands # (test code = Segs-Bands #) 6.2 1.5-8.1 [facility] CampusOklngpsXWTKVXOGSO7464-28-76 07:30:00 Test Item Value Reference Range Interpretation Comments Basophils (test code = 0.6 See_Comment [Aut omated message] The Basophils) system which ge nerated this result tra nsmitted reference range : <=1.0. The reference r matthieu was not used to int erpret this result as normal/abnormal . [facility] CampusLtkrbipCJKBTNAATL2260-93-67 07:30:00 Test Item Value Reference Range Interpretation Comments Eosinophils (test code = 1.9 See_Comment [A utomated message] The Eosinophils) system which ge nerated this result tra nsmitted reference range : <=4.0. The reference r matthieu was not used to int erpret this result as normal/abnormal . [facility] CampusMdvyvrtPXTGUDDYCI6915-09-18 07:30:00 Test Item Value Reference Range Interpretation Comments Segs (test code = Segs) 69.8 45.0-75.0 [facility] CampusYqxdhekJIIHHGPOPV0575-31-91 07:30:00 Test Item Value Reference Range Interpretation Comments Lymphocytes (test code = Lymphocytes) 20.6 20.0-40.0 [facility] CampusOuwhqaaPUNWPFTPEI7666-14-89 07:30:00 Test Item Value Reference Range Interpretation Comments Monocytes (test code = Monocytes) 7.1 2.0-12.0 [facility] CampusQizmfphZRJAGDSYMR5485-59-61 07:30:00 Test Item Value Reference Range Interpretation Comments MCH (test code = MCH) 21.2 pg 27.0-31.0 [facility] CampusCsbhnbdLXYWHVIAMO5964-22-86 07:30:00 Test Item Value Reference Range Interpretation Comments MCHC (test code = MCHC) 30.4 32.0-36.0 [facility] CampusWhcpwwlSTFJEWRJGS4067-42-45 07:30:00 Test Item Value Reference Range Interpretation Comments RDW (test code = RDW) 17.7 11.5-14.5 [facility] CampusMynxufhXPNFNVLSIT0711-44-95 07:30:00 Test Item Value Reference Range Interpretation Comments Platelet (test code = Platelet) 376 133450 [facility] CampusXdwowaqVHOSWWNUIJ7238-28-75 07:30:00 Test Item Value Reference Range Interpretation Comments MPV (test code = MPV) 8.5 7.4-10.4 [facility] CampusAjygojcRNBHRWFAXH7323-14-43 07:30:00 Test Item Value Reference Range Interpretation Comments WBC (test code = WBC) 8.9 3.7-10.4 [facility] CampusQbvvfpsBEYCWPUVAC6777-84-97 07:30:00 Test Item Value Reference Range Interpretation Comments RBC (test code = RBC) 4.30 4.70-6.10 [facility] CampusCbziwsvMCKRIWWCCO6484-66-80 07:30:00 Test Item Value Reference Range Interpretation Comments Hgb (test code = Hgb) 9.1 14.0-18.0 [facility] CampusGfqumobXBDLRHRARZ8614-00-00 07:30:00 Test Item Value Reference Range Interpretation Comments Hct (test code = Hct) 30.0 42.0-54.0 [facility] CampusLvwzyjjCNWBNKCAHX2502-39-32 07:30:00 Test Item Value Reference Range Interpretation Comments MCV (test code = MCV) 69.7 80.0-94.0 [facility] VPHBRFP7694-52-03 06:10:00 Test Item Value Reference Range Interpretation Comments ABO/Rh (test code = ABO/Rh) O POS [facility] BANK [id number] 06:10:00 Test Item Value Reference Range Interpretation Comments Antibody Scrn (test Negative (01/26/14 code = Antibody Scrn) 12:10 AM) [facility] [id number] 19:38:00 Test Item Value Reference Range Interpretation Comments Protein CSF (test code = Protein CSF) 41 15-45 [facility] [id number] 19:38:00 Test Item Value Reference Range Interpretation Comments Glucose CSF (test code = Glucose CSF) 65 45-80 [facility] [id number] 19:38:00 Test Item Value Reference Range Interpretation Comments Tube Num CSF (test code = Tube Num CSF) 3 1 [facility] [id number] 19:38:00 Test Item Value Reference Range Interpretation Comments RBC CSF (test code = 585 See_Comment [Autom ated message] The RBC CSF) system which ge nerated this result transmit yanely reference range : <=03. The reference range was not used to interpr et this result as brielle l/abnormal. [facility] SouthEurotriWIIBZX3996-84-86 19:38:00 Test Item Value Reference Range Interpretation Comments Supernat CSF (test Colorless (01/23/14 1:38 code = Supernat CSF) PM) [facility] SouthEurotriJWGGVA6750-84-52 19:38:00 Test Item Value Reference Range Interpretation Comments WBC CSF (test code = 4 See_Comment [Autom ated message] The WBC CSF) system which ge nerated this result transmit yanely reference range : <=53. The reference range was not used to interpr et this result as birelle l/abnormal. [facility] SouthEurotriABLEQF5722-43-47 19:38:00 Test Item Value Reference Range Interpretation Comments Color CSF (test code Colorless (01/23/14 1:38 = Color CSF) PM) [facility] SouthEurotriQOMGVS4451-29-40 19:38:00 Test Item Value Reference Range Interpretation Comments Clarity CSF (test code = Clear (01/23/14 1:38 Clarity CSF) PM) [facility] [id number] 09:29:00 Test Item Value Reference Range Interpretation Comments Phosphorus (test code = Phosphorus) 3.7 2.5-4.5 [facility] [id number] 09:29:00 Test Item Value Reference Range Interpretation Comments Magnesium Lvl (test code = Magnesium 1.7 1.8-2.4 Lvl) [facility]qhxfNIKTMMLDMFRB3547-50-01 09:29:00 Test Item Value Reference Range Interpretation Comments AGAP (test code = AGAP) 12.2 10.0-20.0 [facility]KfkvzucLZGLVJYKZYSC1806-97-66 09:29:00 Test Item Value Reference Range Interpretation Comments eGFR (test code = eGFR) 117 [facility]EbfvdviMVUNLGXFSLNL8815-82-19 09:29:00 Test Item Value Reference Range Interpretation Comments Potassium Lvl (test code = Potassium 4.2 3.5-5.1 Lvl) [facility]OyoobwqFXOKJVZYYJMQ6201-24-06 09:29:00 Test Item Value Reference Range Interpretation Comments Calcium Lvl (test code = Calcium Lvl) 8.7 8.5-10.5 [facility] SystemVbqbfedAUWCRWRGXVNS0399-33-43 09:29:00 Test Item Value Reference Range Interpretation Comments CO2 (test code = CO2) 27 24-32 [facility]MwgytebHUTMUOZSZTDC9326-88-61 09:29:00 Test Item Value Reference Range Interpretation Comments Chloride Lvl (test code = Chloride Lvl) 107 95-109 [facility] SystemLgvorwcSETKXVSZZLUA7691-08-04 09:29:00 Test Item Value Reference Range Interpretation Comments Creatinine Lvl (test code = Creatinine 0.7 0.5-1.4 Lvl) [facility] SystemCoxcpqcIJEHFPLAATZY6594-27-03 09:29:00 Test Item Value Reference Range Interpretation Comments Sodium Lvl (test code = Sodium Lvl) 142 135-145 [facility]PkpijssNVXSBBTHGNRO2931-73-93 09:29:00 Test Item Value Reference Range Interpretation Comments BUN (test code = BUN) 7 7-22 [facility] SystemYqgeqifTBSUQADNHMRG1762-78-23 09:29:00 Test Item Value Reference Range Interpretation Comments Glucose Lvl (test code = Glucose Lvl) 108 70-99 [facility]UcqchjvYRCEQBEGDO7668-01-76 09:29:00 Test Item Value Reference Range Interpretation Comments Eosinophils (test code = 1.0 See_Comment [A utomated message] The Eosinophils) system which ge nerated this result tra nsmitted reference range : <=4.0. The reference r matthieu was not used to int erpret this result as normal/abnormal . [facility] CampusKkjepsvJCSGIASRFZ0726-43-11 09:29:00 Test Item Value Reference Range Interpretation Comments Monocytes (test code = Monocytes) 10.4 2.0-12.0 [facility] CampusMgolodsFXHSPUQWJJ8498-29-64 09:29:00 Test Item Value Reference Range Interpretation Comments Lymphocytes (test code = Lymphocytes) 17.4 20.0-40.0 [facility] CampusTkqpgcwJBZJNDNPET4858-45-87 09:29:00 Test Item Value Reference Range Interpretation Comments Segs (test code = Segs) 70.7 45.0-75.0 [facility] CampusJzhlggyHQOVJHAUHE8883-80-95 09:29:00 Test Item Value Reference Range Interpretation Comments Eosinophils # (test code 0.1 See_Comment [A utomated message] The = Eosinophils #) system whic h generated this result tra nsmitted reference range : <=0.5. The reference r matthieu was not used to int erpret this result as normal/abnormal . [facility] CampusJgzxanhJAAVGVGHVD7227-12-75 09:29:00 Test Item Value Reference Range Interpretation Comments Monocytes # (test code 1.2 See_Comment [Aut omated message] The = Monocytes #) system which generated this result tra nsmitted reference range : <=0.8. The reference r matthieu was not used to int erpret this result as normal/abnormal . [facility] CampusZxakphkRVRHJNVRAU3047-42-88 09:29:00 Test Item Value Reference Range Interpretation Comments Lymphocytes # (test code = Lymphocytes 2.1 1.0-5.5 #) [facility] CampusLyhdjlpLYWASPXACQ2944-35-02 09:29:00 Test Item Value Reference Range Interpretation Comments Segs-Bands # (test code = Segs-Bands #) 8.3 1.5-8.1 [facility] CampusJpiasfoSHGXBWBDTU7998-19-40 09:29:00 Test Item Value Reference Range Interpretation Comments Basophils (test code = 0.5 See_Comment [Aut omated message] The Basophils) system which ge nerated this result tra nsmitted reference range : <=1.0. The reference r matthieu was not used to int erpret this result as normal/abnormal . [facility] CampusHvjhdhqZXFZECTEQD5939-43-19 09:29:00 Test Item Value Reference Range Interpretation Comments Microcyte (test code = 2+ *ABN*(01/23/14 Microcyte) 3:29 AM) [facility] CampusHmbiuctQFCLDWHXDX0920-49-22 09:29:00 Test Item Value Reference Range Interpretation Comments Basophils # (test code 0.1 See_Comment [Aut omated message] The = Basophils #) system which generated this result tra nsmitted reference range : <=0.2. The reference r matthieu was not used to int erpret this result as normal/abnormal . [facility] CampusYtzpagwSSEHJAQQRL7972-06-99 09:29:00 Test Item Value Reference Range Interpretation Comments RDW (test code = RDW) 18.0 11.5-14.5 [facility] CampusEbwpqrhOXYHWJBNZO2818-60-04 09:29:00 Test Item Value Reference Range Interpretation Comments MCHC (test code = MCHC) 31.2 32.0-36.0 [facility] CampusUdunonfOIEFWCBNLG5331-83-53 09:29:00 Test Item Value Reference Range Interpretation Comments MCH (test code = MCH) 21.9 pg 27.0-31.0 [facility] CampusZkkekrqJUYKMJZGOD6881-18-99 09:29:00 Test Item Value Reference Range Interpretation Comments MCV (test code = MCV) 70.3 80.0-94.0 [facility] CampusTguerqlKCYWGOFGZN5209-05-47 09:29:00 Test Item Value Reference Range Interpretation Comments Hct (test code = Hct) 34.3 42.0-54.0 [facility] CampusZmsixndEDFWOSUNFJ6377-67-32 09:29:00 Test Item Value Reference Range Interpretation Comments Platelet (test code = Platelet) 355 133-450 [facility] CampusCkhltkpTIWTZQMGJV5127-17-24 09:29:00 Test Item Value Reference Range Interpretation Comments MPV (test code = MPV) 8.6 7.4-10.4 [facility] CampusInspqpxFRLCKBYBRJ3018-95-52 09:29:00 Test Item Value Reference Range Interpretation Comments Hgb (test code = Hgb) 10.7 14.0-18.0 [facility] CampusTlmphobTIBWJOMUXK7039-73-73 09:29:00 Test Item Value Reference Range Interpretation Comments RBC (test code = RBC) 4.88 4.70-6.10 [facility] CampusVtvyzcyYLHXNNZSPM0437-70-61 09:29:00 Test Item Value Reference Range Interpretation Comments WBC (test code = WBC) 11.8 3.7-10.4 [facility]2014-11-07 09:29:00 Test Item Value Reference Range Interpretation Comments Ca Ion WB (test code = Ca Ion WB) 1.12 1.05-1.25 [facility]2014-11-07 09:29:00 Test Item Value Reference Range Interpretation Comments Ca Norm WB (test code = Ca Norm WB) 1.11 1.05-1.25 [facility]2014-11-06 06:37:00 Test Item Value Reference Range Interpretation Comments eGFR (test code = eGFR) 111 [facility]2014-11-06 06:37:00 Test Item Value Reference Range Interpretation Comments Sodium Lvl (test code = Sodium Lvl) 141 135-145 [facility]2014-11-06 06:37:00 Test Item Value Reference Range Interpretation Comments Creatinine Lvl (test code = Creatinine 0.8 0.5-1.4 Lvl) [facility]2014-11-06 06:37:00 Test Item Value Reference Range Interpretation Comments CO2 (test code = CO2) 28 24-32 [facility]2014-11-06 06:37:00 Test Item Value Reference Range Interpretation Comments Chloride Lvl (test code = Chloride Lvl) 105 95-109 [facility]2014-11-06 06:37:00 Test Item Value Reference Range Interpretation Comments Potassium Lvl (test code = Potassium 4.3 3.5-5.1 Lvl) [facility]2014-11-06 06:37:00 Test Item Value Reference Range Interpretation Comments BUN (test code = BUN) 9 7-22 [facility]2014-11-06 06:37:00 Test Item Value Reference Range Interpretation Comments Glucose Lvl (test code = Glucose Lvl) 119 70-99 [facility]2014-11-06 06:37:00 Test Item Value Reference Range Interpretation Comments Calcium Lvl (test code = Calcium Lvl) 8.7 8.5-10.5 [facility]2014-11-06 06:37:00 Test Item Value Reference Range Interpretation Comments AGAP (test code = AGAP) 12.3 10.0-20.0 [facility]2014-11-06 06:37:00 Test Item Value Reference Range Interpretation Comments Magnesium Lvl (test code = Magnesium 1.9 1.8-2.4 Lvl) [facility]2014-11-06 06:37:00 Test Item Value Reference Range Interpretation Comments Phosphorus (test code = Phosphorus) 4.3 2.5-4.5 [facility] CampusXemhjxbQBXBVRRBVM3034-13-04 06:37:00 Test Item Value Reference Range Interpretation Comments MPV (test code = MPV) 8.5 7.4-10.4 [facility] CampusZzboehaVGUUGDIEDV4770-79-21 06:37:00 Test Item Value Reference Range Interpretation Comments Hct (test code = Hct) 36.0 42.0-54.0 [facility] CampusBjuhsewVGJJMSFFAH1703-40-81 06:37:00 Test Item Value Reference Range Interpretation Comments Platelet (test code = Platelet) 394 133-450 [facility] CampusHcqrkgiXADCPFPUXW3884-69-39 06:37:00 Test Item Value Reference Range Interpretation Comments RDW (test code = RDW) 18.0 11.5-14.5 [facility] CampusFtpmbxhLQSTGZYZQY1783-26-08 06:37:00 Test Item Value Reference Range Interpretation Comments MCV (test code = MCV) 70.4 80.0-94.0 [facility] CampusRgkcyrfRTWIOINXLT3136-73-71 06:37:00 Test Item Value Reference Range Interpretation Comments MCHC (test code = MCHC) 31.7 32.0-36.0 [facility] CampusPcfvnltMCSREZJKLJ8052-86-29 06:37:00 Test Item Value Reference Range Interpretation Comments MCH (test code = MCH) 22.3 pg 27.0-31.0 [facility] CampusAnidihsRKOLTXNUMY9934-73-70 06:37:00 Test Item Value Reference Range Interpretation Comments RBC (test code = RBC) 5.12 4.70-6.10 [facility] CampusJrngqviSCMMAGZFUV6142-98-95 06:37:00 Test Item Value Reference Range Interpretation Comments WBC (test code = WBC) 13.9 3.7-10.4 [facility] CampusTzjgpblFFIMDMTCJM5522-94-92 06:37:00 Test Item Value Reference Range Interpretation Comments Hgb (test code = Hgb) 11.4 14.0-18.0 [facility] CampusKhufhzsFUQMMHJHLP0300-97-32 06:37:00 Test Item Value Reference Range Interpretation Comments PTT (test code = PTT) 31.9 s 22.9-35.8 [facility] CampusOhbfykmYSLRLMHJQU7239-39-74 06:37:00 Test Item Value Reference Range Interpretation Comments PT (test code = PT) 13.4 s 12.0-14.7 [facility] CampusPnuxntdLTGEXWXJTY5066-16-05 06:37:00 Test Item Value Reference Range Interpretation Comments INR (test code = INR) 1.02 0.85-1.17 [facility] CampusYenvgebSDDAHQHACM6376-41-90 06:37:00 Test Item Value Reference Range Interpretation Comments Eosinophils (test code = 0.1 See_Comment [A utomated message] The Eosinophils) system which ge nerated this result tra nsmitted reference range : <=4.0. The reference r matthieu was not used to int erpret this result as normal/abnormal . [facility] CampusNhmetvuCPICKTRPIT3669-60-62 06:37:00 Test Item Value Reference Range Interpretation Comments Lymphocytes (test code = Lymphocytes) 13.0 20.0-40.0 [facility] CampusBwyxeasZBMJYHNUUX3358-89-56 06:37:00 Test Item Value Reference Range Interpretation Comments Basophils (test code = 0.3 See_Comment [Aut omated message] The Basophils) system which ge nerated this result tra nsmitted reference range : <=1.0. The reference r matthieu was not used to int erpret this result as normal/abnormal . [facility] CampusTliwpdkKYJVBFTNDB9398-90-06 06:37:00 Test Item Value Reference Range Interpretation Comments Monocytes (test code = Monocytes) 10.2 2.0-12.0 [facility] CampusWcpawobMVUGQULSAP7592-87-32 06:37:00 Test Item Value Reference Range Interpretation Comments Segs-Bands # (test code = Segs-Bands #) 10.7 1.5-8.1 [facility] CampusIrsncahMXMDRTCWVZ9093-17-72 06:37:00 Test Item Value Reference Range Interpretation Comments Segs (test code = Segs) 76.4 45.0-75.0 [facility] CampusFprzqkiOQAWGFMDQT1847-23-33 06:37:00 Test Item Value Reference Range Interpretation Comments Lymphocytes # (test code = Lymphocytes 1.8 1.0-5.5 #) [facility] CampusBbhmkzvRSHLOBFFPR5053-13-53 06:37:00 Test Item Value Reference Range Interpretation Comments Microcyte (test code = 2+ *ABN*(01/22/14 Microcyte) 12:37 AM) [facility]maEskeibnDMENOWUHII2761-94-30 06:37:00 Test Item Value Reference Range Interpretation Comments Monocytes # (test code 1.4 See_Comment [Aut omated message] The = Monocytes #) system which generated this result tra nsmitted reference range : <=0.8. The reference r matthieu was not used to int erpret this result as normal/abnormal . [facility]PARATHYROID GCYZXTZ7283-44-89 06:37:00 Test Item Value Reference Range Interpretation Comments Ca Ion WB (test code = Ca Ion WB) 1.09 1.05-1.25 [facility] KGRIKCF6807-00-63 06:37:00 Test Item Value Reference Range Interpretation Comments Ca Norm WB (test code = Ca Norm WB) 1.10 1.05-1.25 [facility] AlmaOxzuokvJOONFEQXZT4499-08-94 18:35:00 Test Item Value Reference Range Interpretation Comments Anisocyte (test code = 1+ *ABN*(01/21/14 Anisocyte) 12:35 PM) [facility] AlmaIlearhcUNXSNKGPJX5462-74-67 18:35:00 Test Item Value Reference Range Interpretation Comments Hypochrom (test code = 1+ (01/21/14 12:35 Hypochrom) PM) [facility] CampusTaxqxqySHYOLFXRHA3542-70-79 18:35:00 Test Item Value Reference Range Interpretation Comments Large Plt (test code Moderate *ABN*(01/21/14 = Large Plt) 12:35 PM) [facility] AlmaJcymongMBOOQVRERO0807-85-88 13:52:00 Test Item Value Reference Range Interpretation Comments Eosinophils # (test code 0.3 See_Comment [A utomated message] The = Eosinophils #) system whic h generated this result tra nsmitted reference range : <=0.5. The reference r matthieu was not used to int erpret this result as normal/abnormal . [facility] SouthBACTERIAL - [id number] 07:45:00 Test Item Value Reference Range Interpretation Comments MRSA by PCR (test Negative 14(01/21/14 1:45 code = MRSA by PCR) AM) [facility]CHEM [id number] 07:45:00 Test Item Value Reference Range Interpretation Comments Albumin Lvl (test code = Albumin Lvl) 3.7 3.5-5.0 [place] 400774-11-05 07:45:00 Test Item Value Reference Range Interpretation Comments Total Protein (test code = Total 7.3 6.4-8.4 Protein) [facility]2014-11-05 07:45:00 Test Item Value Reference Range Interpretation Comments Bili Total (test code = Bili Total) 0.3 0.2-1.3 [place] 400774-11-05 07:45:00 Test Item Value Reference Range Interpretation Comments ALT (test code = ALT) 22 See_Comment [Auto mated message] The system which ge nerated this result transmit yanely reference range : <=65. The reference range was not used to interpr et this result as brielle l/abnormal. [facility]2014-11-05 07:45:00 Test Item Value Reference Range Interpretation Comments AST (test code = AST) 11 See_Comment [Auto mated message] The system which ge nerated this result transmit yanely reference range : <=37. The reference range was not used to interpr et this result as brielle l/abnormal. [facility]2014-11-05 07:45:00 Test Item Value Reference Range Interpretation Comments Alk Phos (test code = Alk Phos) 99 39-136 [facility]2014-11-05 07:45:00 Test Item Value Reference Range Interpretation Comments A/G Ratio (test code = A/G Ratio) 1.0 0.7-1.6 [facility]2014-11-05 07:45:00 Test Item Value Reference Range Interpretation Comments Globulin (test code = Globulin) 3.6 2.0-4.0 [facility]2014-11-05 07:45:00 Test Item Value Reference Range Interpretation Comments B/C Ratio (test code = B/C Ratio) 18 6-25 [place] [address]-11-05 07:45:00 Test Item Value Reference Range Interpretation Comments Lactic Acid Lvl (test code = Lactic 1.2 0.5-2.2 Acid Lvl) [facility] CampusOnqndwnIBTWAGGSFG5778-71-11 07:45:00 Test Item Value Reference Range Interpretation Comments PTT (test code = PTT) 35.3 s 22.9-35.8 [facility] CampusJqexfhmGTIVGKVEHP5113-03-10 07:45:00 Test Item Value Reference Range Interpretation Comments PT (test code = PT) 13.1 s 12.0-14.7 [facility] SouthXmrhyjzQXNFUTANEU2471-51-49 07:45:00 Test Item Value Reference Range Interpretation Comments INR (test code = INR) 0.99 0.85-1.17 [facility] [id number] 07:45:00 Test Item Value Reference Range Interpretation Comments UA Urobilinogen (test code = UA <=1.0 mg/dL 0.1-1.0 Urobilinogen) [facility] [id number] 07:45:00 Test Item Value Reference Range Interpretation Comments UA Sq Epi (test code = UA Sq Epi) None Seen [facility] [id number] 07:45:00 Test Item Value Reference Range Interpretation Comments UA Mucus (test code = UA Mucus) Many /LPF [facility] [id number] 07:45:00 Test Item Value Reference Range Interpretation Comments UA Nitrite (test code Negative (01/21/14 1:45 = UA Nitrite) AM) [facility] [id number] 07:45:00 Test Item Value Reference Range Interpretation Comments UA Blood (test code = Negative (01/21/14 1:45 UA Blood) AM) [facility] [id number] 07:45:00 Test Item Value Reference Range Interpretation Comments UA Leuk Est (test Negative (01/21/14 1:45 code = UA Leuk Est) AM) [facility] [id number] 07:45:00 Test Item Value Reference Range Interpretation Comments UA WBC (test code = 3 See_Comment [Automa yanely message] The UA WBC) system which ge nerated this result transmit yanely reference range : <=5. The reference range was not used to interpr et this result as brielle l/abnormal. [facility] [id number] 07:45:00 Test Item Value Reference Range Interpretation Comments UA Color (test code = Yellow *NA*(01/21/14 UA Color) 1:45 AM) [facility] [id number] 07:45:00 Test Item Value Reference Range Interpretation Comments UA Spec Grav (test code = UA Spec Grav) 1.022 [facility] [id number] 07:45:00 Test Item Value Reference Range Interpretation Comments UA Turbidity (test code = Clear (01/21/14 1:45 UA Turbidity) AM) [facility] [id number] 07:45:00 Test Item Value Reference Range Interpretation Comments UA Protein (test code = UA Protein) 20 mg/dL [facility] [id number] 07:45:00 Test Item Value Reference Range Interpretation Comments UA pH (test code = UA pH) 6.0 5.0-8.0 [facility] [id number] 07:45:00 Test Item Value Reference Range Interpretation Comments UA Ketones (test code = UA Negative mg/dL Ketones) [facility] [id number] 07:45:00 Test Item Value Reference Range Interpretation Comments UA Glucose (test code = UA Negative mg/dL Glucose) [facility] [id number] 07:45:00 Test Item Value Reference Range Interpretation Comments UA Bili (test code = Negative *NA*(01/21/14 UA Bili) 1:45 AM) [facility] [id number] 07:40:00 Test Item Value Reference Range Interpretation Comments Antibody Scrn (test Negative (01/21/14 1:40 code = Antibody Scrn) AM) [facility] [id number] 07:40:00 Test Item Value Reference Range Interpretation Comments ABO/Rh (test code = ABO/Rh) O POS [facility] SouthZxrgdmoOXJDZPRQSY9620-14-38 17:34:00 Test Item Value Reference Range Interpretation Comments Hgb (test code = Hgb) 9.4 14.0-18.0 [facility] SouthOsywapkUMUUKZJBUE1704-76-17 17:34:00 Test Item Value Reference Range Interpretation Comments Hct (test code = Hct) 28.4 42.0-54.0 [facility]CHE[facility] [id number] 05:40:00 Test Item Value Reference Range Interpretation Comments Phosphorus (test code = Phosphorus) 4.5 2.5-4.5 [facility] [id number] 05:40:00 Test Item Value Reference Range Interpretation Comments Magnesium Lvl (test code = Magnesium 1.8 1.8-2.4 Lvl) [facility]rrdvlvIQDYKBSYHHJE7340-13-69 05:40:00 Test Item Value Reference Range Interpretation Comments AGAP (test code = AGAP) 12.7 10.0-20.0 [facility] SystemEriqkdcHKFLAWTFDSMO8456-53-62 05:40:00 Test Item Value Reference Range Interpretation Comments eGFR (test code = eGFR) 125 [facility] SystemKlxfsjiIQAIYUPOXQUA8087-42-55 05:40:00 Test Item Value Reference Range Interpretation Comments Creatinine Lvl (test code = Creatinine 0.6 0.5-1.4 Lvl) [facility] SystemYptykjjLUBMYOKFYUQL1706-59-72 05:40:00 Test Item Value Reference Range Interpretation Comments Calcium Lvl (test code = Calcium Lvl) 9.0 8.5-10.5 [facility] SystemBoerhrfPVYCTLRGUJMC7194-30-90 05:40:00 Test Item Value Reference Range Interpretation Comments CO2 (test code = CO2) 30 24-32 [facility] SystemGuhmzowLVDTDOCKXXYP3894-89-85 05:40:00 Test Item Value Reference Range Interpretation Comments Chloride Lvl (test code = Chloride Lvl) 99 95-109 [facility] SystemWdtifwhIZTGVTHIINMY9279-64-79 05:40:00 Test Item Value Reference Range Interpretation Comments BUN (test code = BUN) 18 7-22 [facility] SystemBsxrfaeUKDQGUCRKVVP4092-89-73 05:40:00 Test Item Value Reference Range Interpretation Comments Glucose Lvl (test code = Glucose Lvl) 101 70-99 [facility] SystemWspnypcWDRKHZJZFWBL8476-04-13 05:40:00 Test Item Value Reference Range Interpretation Comments Potassium Lvl (test code = Potassium 4.7 3.5-5.1 Lvl) [facility] SystemPtsddveNTDSMTWJWGOF3812-70-83 05:40:00 Test Item Value Reference Range Interpretation Comments Sodium Lvl (test code = Sodium Lvl) 137 135-145 [facility] CampusJmikwyyLZRIYTKDIY6292-01-74 05:40:00 Test Item Value Reference Range Interpretation Comments WBC (test code = WBC) 9.9 3.7-10.4 [facility] CampusZvmsawlYFOJLMZTVM8789-16-67 05:40:00 Test Item Value Reference Range Interpretation Comments RBC (test code = RBC) 3.33 4.70-6.10 [facility] CampusMswidteHTEXZVKTAJ7522-84-40 05:40:00 Test Item Value Reference Range Interpretation Comments Hgb (test code = Hgb) 9.8 14.0-18.0 [facility] CampusCfxoldvAXQWYMZNIR1976-34-45 05:40:00 Test Item Value Reference Range Interpretation Comments Hct (test code = Hct) 28.5 42.0-54.0 [facility] CampusWvvrqraRSSJZNEZYN7643-05-53 05:40:00 Test Item Value Reference Range Interpretation Comments MCH (test code = MCH) 29.4 pg 27.0-31.0 [facility] [id number] 05:40:00 Test Item Value Reference Range Interpretation Comments MCV (test code = MCV) 85.6 80.0-94.0 [facility] CampusKwmdlcjWYUMHPHWUN9698-02-97 05:40:00 Test Item Value Reference Range Interpretation Comments MCHC (test code = MCHC) 34.4 32.0-36.0 [facility] CampusWbalzafZBREOIOZJY8231-55-47 05:40:00 Test Item Value Reference Range Interpretation Comments RDW (test code = RDW) 15.1 11.5-14.5 [facility] CampusFyyxjbzNLZTCENEUZ0576-11-64 05:40:00 Test Item Value Reference Range Interpretation Comments Platelet (test code = Platelet) 469 133-450 [facility] CampusEwntkfnIXRXAHLLMZ5717-58-50 05:40:00 Test Item Value Reference Range Interpretation Comments MPV (test code = MPV) 8.4 7.4-10.4 [facility] CampusVwoiqasJTGQOJVDGY9764-84-02 05:40:00 Test Item Value Reference Range Interpretation Comments Eosinophils # (test code 0.2 See_Comment [A utomated message] The = Eosinophils #) system [facility] h generated this result tra nsmitted reference range : <=0.5. The reference r matthieu was not used to int erpret this result as normal/abnormal . [facility] [id number] 05:40:00 Test Item Value Reference Range Interpretation Comments Segs-Bands # (test code = Segs-Bands #) 6.8 1.5-8.1 [facility] CampusTqdgtjrXDNKDBJEYA9194-46-01 05:40:00 Test Item Value Reference Range Interpretation Comments Lymphocytes # (test code = Lymphocytes 1.9 1.0-5.5 #) [facility] CampusLcvtwbtKJPUAOVFDU1191-98-22 05:40:00 Test Item Value Reference Range Interpretation Comments Monocytes # (test code 1.0 See_Comment [Aut omated message] The = Monocytes #) system which generated this result tra nsmitted reference range : <=0.8. The reference r matthieu was not used to int erpret this result as normal/abnormal . [facility] CampusPhhomgiGTUJPNDOQV2344-51-84 05:40:00 Test Item Value Reference Range Interpretation Comments Lymphocytes (test code = Lymphocytes) 19.0 20.0-40.0 [facility] CampusZygqcpdQYQUVTGPAM1667-71-35 05:40:00 Test Item Value Reference Range Interpretation Comments Basophils (test code = 0.5 See_Comment [Aut omated message] The Basophils) system which ge nerated this result tra nsmitted reference range : <=1.0. The reference r matthieu was not used to int erpret this result as normal/abnormal . [facility] CampusOjdyjmdHJFZEFQGWT3030-02-13 05:40:00 Test Item Value Reference Range Interpretation Comments Eosinophils (test code = 2.0 See_Comment [A utomated message] The Eosinophils) system which ge nerated this result tra nsmitted reference range : <=4.0. The reference r matthieu was not used to int erpret this result as normal/abnormal . [facility] CampusHrsahnyBAIFPNBXDK5480-00-02 05:40:00 Test Item Value Reference Range Interpretation Comments Monocytes (test code = Monocytes) 9.9 2.0-12.0 [facility] CampusSexqcsdFSYEAREQQZ5261-43-38 05:40:00 Test Item Value Reference Range Interpretation Comments Segs (test code = Segs) 68.6 45.0-75.0 [facility]2014-08-18 05:40:00 Test Item Value Reference Range Interpretation Comments Ca Ion WB (test code = Ca Ion WB) 1.13 1.05-1.25 [facility]2014-08-18 05:40:00 Test Item Value Reference Range Interpretation Comments Ca Norm WB (test code = Ca Norm WB) 1.16 1.05-1.25 [facility] AND [id number] 16:30:02 Test Item Value Reference Range Interpretation Comments UA Bacteria (test code = UA Occasional /HPF Bacteria) [facility] AND [id number] 16:30:02 Test Item Value Reference Range Interpretation Comments UA Mucus (test code = UA Mucus) Few /LPF [facility] AND [id number] 16:30:02 Test Item Value Reference Range Interpretation Comments UA WBC (test code = no gt See_Comment [Automa yanely message] The UA WBC) system which ge nerated this result transmit yanely reference range : <=5. The reference range was not used to interpr et this result as brielle l/abnormal. [facility] AND [id number] 16:30:02 Test Item Value Reference Range Interpretation Comments UA RBC (test code = 1 See_Comment [Automa yanely message] The UA RBC) system which ge nerated this result transmit yanely reference range : <=2. The reference range was not used to interpr et this result as brielle l/abnormal. [facility] AND [id number] 16:30:02 Test Item Value Reference Range Interpretation Comments UA Urobilinogen (test code = UA <=1.0 mg/dL 0.1-1.0 Urobilinogen) [facility] AND [id number] 16:30:02 Test Item Value Reference Range Interpretation Comments UA Sq Epi (test code = UA Sq Occasional /LPF Epi) [facility] AND [id number] 16:30:02 Test Item Value Reference Range Interpretation Comments UA Leuk Est (test Negative (11/02/13 11:30 code = UA Leuk Est) AM) [facility] AND [id number] 16:30:02 Test Item Value Reference Range Interpretation Comments UA Amorph Danyelle (test code = Occasional /HPF UA Amorph Danyelle) [facility] AND [id number] 16:30:02 Test Item Value Reference Range Interpretation Comments UA Spec Grav (test code = UA Spec Grav) 1.009 [facility] AND [id number] 16:30:02 Test Item Value Reference Range Interpretation Comments UA Protein (test code = UA Negative mg/dL Protein) [facility] AND [id number] 16:30:02 Test Item Value Reference Range Interpretation Comments UA Turbidity (test code Slight *ABN*(11/02/13 = UA Turbidity) 11:30 AM) [facility] AND [id number] 16:30:02 Test Item Value Reference Range Interpretation Comments UA Color (test code = Yellow *NA*(11/02/13 UA Color) 11:30 AM) [facility] [id number] 16:30:02 Test Item Value Reference Range Interpretation Comments UA pH (test code = UA pH) 7.0 5.0-8.0 [facility] [id number] 16:30:02 Test Item Value Reference Range Interpretation Comments UA Nitrite (test code Negative (11/02/13 11:30 = UA Nitrite) AM) [facility] [id number] 16:30:02 Test Item Value Reference Range Interpretation Comments UA Ketones (test code = UA Negative mg/dL Ketones) [facility] [id number] 16:30:02 Test Item Value Reference Range Interpretation Comments UA Glucose (test code = UA Negative mg/dL Glucose) [facility] AND [id number] 16:30:02 Test Item Value Reference Range Interpretation Comments UA Blood (test code = Negative (11/02/13 11:30 UA Blood) AM) [facility] AND [id number] 16:30:02 Test Item Value Reference Range Interpretation Comments UA Bili (test code = Negative *NA*(11/02/13 UA Bili) 11:30 AM) [facility] ResourcesPOET TechnologiesCHEM [id number] 04:47:00 Test Item Value Reference Range Interpretation Comments Phosphorus (test code = Phosphorus) 4.3 2.5-4.5 [facility]annCHEM [id number] 04:47:00 Test Item Value Reference Range Interpretation Comments Magnesium Lvl (test code = Magnesium 1.6 1.8-2.4 Lvl) [facility] ResourcesNnajitaMBJLCXRUGXKY5983-29-72 04:47:00 Test Item Value Reference Range Interpretation Comments AGAP (test code = AGAP) 12.5 10.0-20.0 [facility] OrsgvsaBGXREYXNPPTL5733-48-97 04:47:00 Test Item Value Reference Range Interpretation Comments eGFR (test code = eGFR) 125 [facility] ResourcesCvzrnvxPIREVUYDLMUD6805-83-24 04:47:00 Test Item Value Reference Range Interpretation Comments Potassium Lvl (test code = Potassium 4.5 3.5-5.1 Lvl) [facility] ResourcesVjtdozpMXVMCWPSBWKH4614-71-13 04:47:00 Test Item Value Reference Range Interpretation Comments Sodium Lvl (test code = Sodium Lvl) 138 135-145 [facility]HKPMSOKKQHFU7219-50-86 04:47:00 Test Item Value Reference Range Interpretation Comments CO2 (test code = CO2) 29 24-32 [facility]XymxmdrKDJOSZBHBJCC8793-36-76 04:47:00 Test Item Value Reference Range Interpretation Comments Chloride Lvl (test code = Chloride Lvl) 101 95-109 [facility] SystemXwheaysCDFIJFUDEUAM6136-51-18 04:47:00 Test Item Value Reference Range Interpretation Comments Calcium Lvl (test code = Calcium Lvl) 9.1 8.5-10.5 [facility] SystemAoqoedfYNTBIIGISMGE5771-59-27 04:47:00 Test Item Value Reference Range Interpretation Comments Creatinine Lvl (test code = Creatinine 0.6 0.5-1.4 Lvl) [facility]SdlvfqoGECXHZMEEEEJ1543-24-66 04:47:00 Test Item Value Reference Range Interpretation Comments Glucose Lvl (test code = Glucose Lvl) 129 70-99 [facility] SystemNtfubmpLIYPEVVRFGOM9623-38-46 04:47:00 Test Item Value Reference Range Interpretation Comments BUN (test code = BUN) 18 7-22 [facility] CampusHicimaxCQFBWIAWJJ4601-46-34 04:47:00 Test Item Value Reference Range Interpretation Comments MCH (test code = MCH) 29.6 pg 27.0-31.0 [facility] CampusSxczxpiMHBDHAGTLT4684-33-36 04:47:00 Test Item Value Reference Range Interpretation Comments MCHC (test code = MCHC) 33.9 32.0-36.0 [facility] CampusUlnlcrjTIOYNKSOKN5782-98-75 04:47:00 Test Item Value Reference Range Interpretation Comments MPV (test code = MPV) 8.1 7.4-10.4 [facility] CampusEsyeuviZXQBWOLZPM1523-39-54 04:47:00 Test Item Value Reference Range Interpretation Comments RDW (test code = RDW) 15.0 11.5-14.5 [facility] [id number] 04:47:00 Test Item Value Reference Range Interpretation Comments Platelet (test code = Platelet) 470 133-450 [facility] CampusOywttdgRTGLLVASPK4500-95-50 04:47:00 Test Item Value Reference Range Interpretation Comments WBC (test code = WBC) 9.5 3.7-10.4 [facility] CampusUfrpefsQGYMGJSMKM3267-96-39 04:47:00 Test Item Value Reference Range Interpretation Comments MCV (test code = MCV) 87.4 80.0-94.0 [facility] CampusOgcwzcdDAUPERMZLK3976-29-86 04:47:00 Test Item Value Reference Range Interpretation Comments Hct (test code = Hct) 27.9 42.0-54.0 [facility] CampusNcumqzzPCUUJNSBZE5224-04-08 04:47:00 Test Item Value Reference Range Interpretation Comments RBC (test code = RBC) 3.19 4.70-6.10 [facility] CampusIgdzqdbQJRFBETSSM7264-42-69 04:47:00 Test Item Value Reference Range Interpretation Comments Hgb (test code = Hgb) 9.4 14.0-18.0 [facility] CampusZjuzqubPSHBEXUPHQ6942-61-37 04:47:00 Test Item Value Reference Range Interpretation Comments Segs (test code = Segs) 67.6 45.0-75.0 [facility] CampusJavtbbhXGAFXSFHJN9487-60-51 04:47:00 Test Item Value Reference Range Interpretation Comments Polychrom (test code = Slight (11/01/13 11:47 Polychrom) PM) [facility] CampusVdgdjvpEFJXUKTTIE3021-00-44 04:47:00 Test Item Value Reference Range Interpretation Comments Monocytes # (test code 0.9 See_Comment [Aut omated message] The = Monocytes #) system which generated this result tra nsmitted reference range : <=0.8. The reference r matthieu was not used to int erpret this result as normal/abnormal . [facility] CampusTwzwhdwDSMZZOXQPR5005-73-28 04:47:00 Test Item Value Reference Range Interpretation Comments Eosinophils # (test code 0.2 See_Comment [A utomated message] The = Eosinophils #) system whic h generated this result tra nsmitted reference range : <=0.5. The reference r matthieu was not used to int erpret this result as normal/abnormal . [facility] CampusItkoxrlHBKLXNBJHP9468-11-48 04:47:00 Test Item Value Reference Range Interpretation Comments Segs-Bands # (test code = Segs-Bands #) 6.4 1.5-8.1 [facility] CampusOpkjxllNUBWTZDYAI1082-18-43 04:47:00 Test Item Value Reference Range Interpretation Comments Lymphocytes # (test code = Lymphocytes 1.9 1.0-5.5 #) [facility] CampusJunrsenSQVOJAYTEE9316-93-38 04:47:00 Test Item Value Reference Range Interpretation Comments Eosinophils (test code = 2.2 See_Comment [A utomated message] The Eosinophils) system which ge nerated this result tra nsmitted reference range : <=4.0. The reference r matthieu was not used to int erpret this result as normal/abnormal . [facility] CampusOevkdtdDESHGKDBEK9270-78-68 04:47:00 Test Item Value Reference Range Interpretation Comments Basophils (test code = 0.5 See_Comment [Aut omated message] The Basophils) system which ge nerated this result tra nsmitted reference range : <=1.0. The reference r matthieu was not used to int erpret this result as normal/abnormal . [facility] CampusSbztjwnRITJKSPPOE2997-14-75 04:47:00 Test Item Value Reference Range Interpretation Comments Lymphocytes (test code = Lymphocytes) 20.1 20.0-40.0 [facility] CampusDzgwzhdTITHAFVUGM7624-65-51 04:47:00 Test Item Value Reference Range Interpretation Comments Monocytes (test code = Monocytes) 9.6 2.0-12.0 [facility] CampusYrpxpmdYPENJWSMIM7346-94-54 04:47:00 Test Item Value Reference Range Interpretation Comments Elliptocyte (test code = Slight *ABN*(11/01/13 Elliptocyte) 11:47 PM) [facility] CampusEcuulxwYWAGIEEXBO1052-47-36 04:47:00 Test Item Value Reference Range Interpretation Comments Plt Morph (test code = Normal (11/01/13 11:47 Plt Morph) PM) [facility] [id number] 04:47:00 Test Item Value Reference Range Interpretation Comments Ca Ion WB (test code = Ca Ion WB) 1.19 1.05-1.25 [facility] OCAWFGV7911-13-50 04:47:00 Test Item Value Reference Range Interpretation Comments Ca Norm WB (test code = Ca Norm WB) 1.19 1.05-1.25 [facility]2014-08-16 16:59:46 Test Item Value Reference Range Interpretation Comments Magnesium Lvl (test code = Magnesium 2.0 1.8-2.4 Lvl) [facility]2014-08-16 05:30:14 Test Item Value Reference Range Interpretation Comments Phosphorus (test code = Phosphorus) 3.5 2.5-4.5 [facility]2014-08-16 05:30:14 Test Item Value Reference Range Interpretation Comments eGFR (test code = eGFR) 135 [facility]2014-08-16 05:30:14 Test Item Value Reference Range Interpretation Comments Potassium Lvl (test code = Potassium 4.7 3.5-5.1 Lvl) [facility]2014-08-16 05:30:14 Test Item Value Reference Range Interpretation Comments Calcium Lvl (test code = Calcium Lvl) 9.1 8.5-10.5 [facility]2014-08-16 05:30:14 Test Item Value Reference Range Interpretation Comments Chloride Lvl (test code = Chloride Lvl) 104 95-109 [facility]2014-08-16 05:30:14 Test Item Value Reference Range Interpretation Comments CO2 (test code = CO2) 27 24-32 [facility]2014-08-16 05:30:14 Test Item Value Reference Range Interpretation Comments Sodium Lvl (test code = Sodium Lvl) 141 135-145 [facility]2014-08-16 05:30:14 Test Item Value Reference Range Interpretation Comments Creatinine Lvl (test code = Creatinine 0.5 0.5-1.4 Lvl) [facility]2014-08-16 05:30:14 Test Item Value Reference Range Interpretation Comments Glucose Lvl (test code = Glucose Lvl) 121 70-99 [facility]2014-08-16 05:30:14 Test Item Value Reference Range Interpretation Comments BUN (test code = BUN) 17 7-22 [facility]2014-08-16 05:30:14 Test Item Value Reference Range Interpretation Comments AGAP (test code = AGAP) 14.7 10.0-20.0 [facility] CampusWokzwwiKMCNWYQUVZ0162-54-89 05:30:14 Test Item Value Reference Range Interpretation Comments PT (test code = PT) 13.0 s 12.0-14.7 [facility] CampusDelpuyrGWXQCIJCHW7429-96-24 05:30:14 Test Item Value Reference Range Interpretation Comments PTT (test code = PTT) 33.5 s 22.9-35.8 [facility] CampusXtjgywkCMOKAACWDB2905-00-87 05:30:14 Test Item Value Reference Range Interpretation Comments INR (test code = INR) 0.99 0.85-1.17 [facility] [id number] 05:30:12 Test Item Value Reference Range Interpretation Comments Ca Norm WB (test code = Ca Norm WB) 1.14 1.05-1.25 [facility]PARATHYROID [id number] 05:30:12 Test Item Value Reference Range Interpretation Comments Ca Ion WB (test code = Ca Ion WB) 1.13 1.05-1.25 [facility]maGwqvjlrEUZRKUIYXL1762-60-38 05:30:04 Test Item Value Reference Range Interpretation Comments MPV (test code = MPV) 8.6 7.4-10.4 [facility] CampusGhqwuyaODRNOEQKYF0335-48-46 05:30:04 Test Item Value Reference Range Interpretation Comments Platelet (test code = Platelet) 457 548-450 [facility] CampusEeaoqhrCJEVBUZIIT3427-27-58 05:30:04 Test Item Value Reference Range Interpretation Comments RDW (test code = RDW) 14.8 11.5-14.5 [facility] CampusRkgfejpTYOBIRHRTN0931-42-54 05:30:04 Test Item Value Reference Range Interpretation Comments MCHC (test code = MCHC) 32.4 32.0-36.0 [facility] CampusTmcwytaFNNGIOXWUN7978-81-59 05:30:04 Test Item Value Reference Range Interpretation Comments MCV (test code = MCV) 87.7 80.0-94.0 [facility] CampusAxccmirMQILBAZTTX6758-16-91 05:30:04 Test Item Value Reference Range Interpretation Comments MCH (test code = MCH) 28.5 pg 27.0-31.0 [facility] CampusSjblsmdKCKWYZLLWX2575-29-71 05:30:04 Test Item Value Reference Range Interpretation Comments RBC (test code = RBC) 3.12 4.70-6.10 [facility] CampusJkszcjoPVMAJCNJCM1305-58-85 05:30:04 Test Item Value Reference Range Interpretation Comments WBC (test code = WBC) 10.1 3.7-10.4 [facility] CampusKqxayzxWKOUDDOEAS8834-81-36 05:30:04 Test Item Value Reference Range Interpretation Comments RBC Morph (test code = Normal (11/01/13 12:30 RBC Morph) AM) [facility] CampusZnvddjfYZGNWEOZNM1398-49-29 05:30:04 Test Item Value Reference Range Interpretation Comments Segs (test code = Segs) 75.0 45.0-75.0 [facility] CampusGfpwzqqUTSKSPUBNJ9004-89-03 05:30:04 Test Item Value Reference Range Interpretation Comments Lymphocytes (test code = Lymphocytes) 14.3 20.0-40.0 [facility] CampusXwzpnalHMESOGUAAA2521-98-73 05:30:04 Test Item Value Reference Range Interpretation Comments Stomatocyte (test code = Slight *ABN*(11/01/13 Stomatocyte) 12:30 AM) [facility] CampusQwbwfjuOFYWVFHAYE2018-09-44 05:30:04 Test Item Value Reference Range Interpretation Comments Basophils (test code = 0.6 See_Comment [Aut omated message] The Basophils) system which ge nerated this result tra nsmitted reference range : <=1.0. The reference r matthieu was not used to int erpret this result as normal/abnormal . [facility] CampusDfpoyrwRWBJZKKBDG3957-94-29 05:30:04 Test Item Value Reference Range Interpretation Comments Large Plt (test code = Slight *ABN*(11/01/13 Large Plt) 12:30 AM) [facility] CampusOdoshnnSIUUZAYYKF7747-86-06 05:30:04 Test Item Value Reference Range Interpretation Comments Eosinophils # (test code 0.2 See_Comment [A utomated message] The = Eosinophils #) system whic h generated this result tra nsmitted reference range : <=0.5. The reference r matthieu was not used to int erpret this result as normal/abnormal . [facility] CampusQtxwlgcQOCWRBFIEF6597-78-18 05:30:04 Test Item Value Reference Range Interpretation Comments Basophils # (test code 0.1 See_Comment [Aut omated message] The = Basophils #) system which generated this result tra nsmitted reference range : <=0.2. The reference r matthieu was not used to int erpret this result as normal/abnormal . [facility] CampusVnyzxeeNNAPSLBBLH6358-80-40 05:30:04 Test Item Value Reference Range Interpretation Comments Segs-Bands # (test code = Segs-Bands #) 7.6 1.5-8.1 [facility] CampusBfyzsueUYPWFIJQTS0375-35-35 05:30:04 Test Item Value Reference Range Interpretation Comments Lymphocytes # (test code = Lymphocytes 1.4 1.0-5.5 #) [facility] CampusRbuwfhhWYRXZEPWGZ9847-12-53 05:30:04 Test Item Value Reference Range Interpretation Comments Monocytes # (test code 0.9 See_Comment [Aut omated message] The = Monocytes #) system which generated this result tra nsmitted reference range : <=0.8. The reference r matthieu was not used to int erpret this result as normal/abnormal . [facility] AlmaIgnxfreYEGELWXWAJ0222-70-16 05:30:04 Test Item Value Reference Range Interpretation Comments Monocytes (test code = Monocytes) 8.4 2.0-12.0 [facility] CampusHhwopudRLXVYWWQIY9673-17-66 05:30:04 Test Item Value Reference Range Interpretation Comments Eosinophils (test code = 1.7 See_Comment [A utomated message] The Eosinophils) system which ge nerated this result tra nsmitted reference range : <=4.0. The reference r matthieu was not used to int erpret this result as normal/abnormal . [facility] AND [id number] 16:00:00 Test Item Value Reference Range Interpretation Comments Occult Bld Stl (test Positive *ABN*(10/31/13 code = Occult Bld Stl) 11:00 AM) [facility] [id number] 15:50:57 Test Item Value Reference Range Interpretation Comments Lactic Acid Lvl (test code = Lactic 1.0 0.5-2.2 Acid Lvl) [facility]CARDIAC DGVTHCM2311-19-12 13:11:50 Test Item Value Reference Range Interpretation Comments Total CK (test code = Total CK) 26 12-191 [facility] SouthCARAC JUUWDJO4591-59-57 13:11:50 Test Item Value Reference Range Interpretation Comments Troponin-T (test code no gt See_Comment [Auto mated message] The = Troponin-T) system which g enerated this result transmit yanely reference range : <=0.100. The reference r matthieu was not used to interpr et this result as brielle l/abnormal. [facility]CARDI[facility] ZMDAICR3589-72-24 13:11:50 Test Item Value Reference Range Interpretation Comments Troponin-I (test code 0.02 See_Comment [Auto mated message] The = Troponin-I) system which g enerated this result transmit yanely reference range : <=0.40. The reference r matthieu was not used to interpr et this result as brielle l/abnormal. [facility]2014-08-15 13:11:50 Test Item Value Reference Range Interpretation Comments B/C Ratio (test code = B/C Ratio) 36 6-25 [facility]2014-08-15 13:11:50 Test Item Value Reference Range Interpretation Comments Globulin (test code = Globulin) 3.8 2.0-4.0 [facility]2014-08-15 13:11:50 Test Item Value Reference Range Interpretation Comments A/G Ratio (test code = A/G Ratio) 0.8 0.7-1.6 [facility]2014-08-15 13:11:50 Test Item Value Reference Range Interpretation Comments Total Protein (test code = Total 6.8 6.4-8.4 Protein) [facility]2014-08-15 13:11:50 Test Item Value Reference Range Interpretation Comments Albumin Lvl (test code = Albumin Lvl) 3.0 3.5-5.0 [facility]2014-08-15 13:11:50 Test Item Value Reference Range Interpretation Comments Alk Phos (test code = Alk Phos) 159 39-136 [facility]2014-08-15 13:11:50 Test Item Value Reference Range Interpretation Comments ALT (test code = ALT) 75 See_Comment [Auto mated message] The system which ge nerated this result transmit yanely reference range : <=65. The reference range was not used to interpr et this result as brielle l/abnormal. [facility]2014-08-15 13:11:50 Test Item Value Reference Range Interpretation Comments AST (test code = AST) 19 See_Comment [Auto mated message] The system which ge nerated this result transmit yanely reference range : <=37. The reference range was not used to interpr et this result as brielle l/abnormal. [facility]2014-08-15 13:11:50 Test Item Value Reference Range Interpretation Comments Bili Total (test code = Bili Total) 0.2 0.2-1.3 [facility] CampusQdmvcifZIVKBOQHYR9291-46-47 13:11:50 Test Item Value Reference Range Interpretation Comments INR (test code = INR) 0.98 0.85-1.17 [facility] CampusRxtiscwYCFEFGJQTH7423-91-95 13:11:50 Test Item Value Reference Range Interpretation Comments PT (test code = PT) 12.9 s 12.0-14.7 [facility] CampusWngunybYFEUARQXVH8976-21-94 13:11:50 Test Item Value Reference Range Interpretation Comments PTT (test code = PTT) 33.5 s 22.9-35.8 [facility] CampusUhgbgycQSDBEHAGDH7884-87-71 13:11:26 Test Item Value Reference Range Interpretation Comments Basophils # (test code 0.1 See_Comment [Aut omated message] The = Basophils #) system which generated this result tra nsmitted reference range : <=0.2. The reference r matthieu was not used to int erpret this result as normal/abnormal . [facility] CampusLfubttuQIXCGGECRV2239-47-27 13:11:26 Test Item Value Reference Range Interpretation Comments Polychrom (test code = Slight (10/31/13 8:11 Polychrom) AM) [facility] CampusZwkkznjBJEFBBOLHF9292-09-55 13:11:26 Test Item Value Reference Range Interpretation Comments Anisocyte (test code = 1+ *ABN*(10/31/13 Anisocyte) 8:11 AM) [facility] CampusLsqdjelPAVZAXXTFE0787-36-28 13:11:26 Test Item Value Reference Range Interpretation Comments Plt Morph (test code = Normal (10/31/13 8:11 Plt Morph) AM) [facility] CampusAymssroTSZEKVWYHV0496-16-96 05:00:00 Test Item Value Reference Range Interpretation Comments Large Plt (test code = Slight *ABN*(10/31/13 Large Plt) 12:00 AM) [facility] CampusBnofqlnIJWCGAQZVN6568-65-88 05:00:00 Test Item Value Reference Range Interpretation Comments Neut Vac (test code = Slight *ABN*(10/31/13 Neut Vac) 12:00 AM) [facility] CampusBqkuuerGVQLWWAVDQ8831-69-31 05:00:00 Test Item Value Reference Range Interpretation Comments Basophils # (test code 0.1 See_Comment [Aut omated message] The = Basophils #) system which generated this result tra nsmitted reference range : <=0.2. The reference r matthieu was not used to int erpret this result as normal/abnormal . [facility] CampusRejtejnRECLXGGGZM7964-96-85 05:00:00 Test Item Value Reference Range Interpretation Comments Polychrom (test code = Slight (10/31/13 12:00 Polychrom) AM) [facility] CampusVnencoaWKGBHZDMRA0972-48-06 06:00:00 Test Item Value Reference Range Interpretation Comments Large Plt (test code = Slight *ABN*(10/30/13 Large Plt) 1:00 AM) [facility] CampusAakkhoyVVOTFPAHTO4717-04-26 06:00:00 Test Item Value Reference Range Interpretation Comments Toxic Gran (test code Slight *ABN*(10/30/13 = Toxic Gran) 1:00 AM) [facility] CampusVjsxmnqZKWLRSGHVV2551-98-21 06:00:00 Test Item Value Reference Range Interpretation Comments Elliptocyte (test code = Slight *ABN*(10/30/13 Elliptocyte) 1:00 AM) [facility] CampusBzwpifaHZFNGBIRZT9436-98-76 06:00:00 Test Item Value Reference Range Interpretation Comments Anisocyte (test code = 1+ *ABN*(10/30/13 Anisocyte) 1:00 AM) [facility] CampusZuqanygTNWKVRNJLO0938-87-50 05:42:00 Test Item Value Reference Range Interpretation Comments Anisocyte (test code = 1+ *ABN*(10/28/13 Anisocyte) 12:42 AM) [facility] CampusJdwbljqXXWIXYDMPB3202-00-84 05:42:00 Test Item Value Reference Range Interpretation Comments Metamyelocytes (test code 2.0 See_Comment [ Automated message] = Metamyelocytes) The system which generated this result transmitted ref erence range: <=1.0. T he reference range was not used to int erpret this result as normal/abnormal . [facility] CampusYpyccvgGEUCTHXWPM5680-49-69 05:42:00 Test Item Value Reference Range Interpretation Comments Atypical Lymphs (test code = Atypical 0.0 Lymphs) [facility] CampusNqgdrcwZWTIVVMDVI7831-78-14 05:42:00 Test Item Value Reference Range Interpretation Comments Myelocytes (test code = Myelocytes) 5.0 [facility] CampusFxmmhwoPCXWLLBDYT5429-43-77 05:42:00 Test Item Value Reference Range Interpretation Comments Giant Plt (test code = Giant Plt) Occasional [facility] CampusCmgcomcWPHCRETMXZ3932-59-70 05:42:00 Test Item Value Reference Range Interpretation Comments Elliptocyte (test code = Slight *ABN*(10/28/13 Elliptocyte) 12:42 AM) [facility] CampusTnduydiDHXKKANJLH4567-38-22 05:42:00 Test Item Value Reference Range Interpretation Comments Bands (test code = 1.0 See_Comment [Automat ed message] The Bands) system which ge nerated this result transmit yanely reference range : <=11.0. The reference r matthieu was not used to interpr et this result as brielle l/abnormal. [facility] CampusQbsrthaCHUVPYHJAM6646-47-36 05:42:00 Test Item Value Reference Range Interpretation Comments INR (test code = INR) 1.04 0.85-1.17 [facility] CampusIdtsxviINISLZJBES0204-80-59 05:42:00 Test Item Value Reference Range Interpretation Comments PT (test code = PT) 13.5 s 12.0-14.7 [facility] CampusPokpbmlOUIXGGAQWU6566-10-90 05:42:00 Test Item Value Reference Range Interpretation Comments PTT (test code = PTT) 31.1 s 22.9-35.8 [facility] CampusXhobqhuPFWPTCHQEJ9015-76-65 21:02:03 Test Item Value Reference Range Interpretation Comments R-time (test code = R-time) 4.8 min 5.0-10.0 [facility] CampusNyusifuDSDNLRVYPM4540-12-48 21:02:03 Test Item Value Reference Range Interpretation Comments Coag Index (test code 4.0 See_Comment [Auto mated message] The = Coag Index) system which g enerated this result transmit yanely reference range : <=3.0. The reference range was not used to interpr et this result as brielle l/abnormal. [facility] CampusWcnfdabGSUUEMEGQV5998-91-91 21:02:03 Test Item Value Reference Range Interpretation Comments Ly30 (test code = 1.2 See_Comment [Automate d message] The Ly30) system which ge nerated this result transmit yanely reference range : <=7.5. The reference range was not used to interpr et this result as brielle l/abnormal. [facility] CampusAsufsszPSIVYICWPG4021-40-81 21:02:03 Test Item Value Reference Range Interpretation Comments G-value (test code = G-value) 17.7 4.5-11.0 [facility] CampusDewbiadUNNEKDABYK9020-42-33 21:02:03 Test Item Value Reference Range Interpretation Comments TEG Data (test code = See Note 26(10/27/13 TEG Data) 4:02 PM) [facility] CampusNbgxwkjGCQANDENGU3510-60-98 21:02:03 Test Item Value Reference Range Interpretation Comments Angle (test code = Angle) 75.6 degrees 53.0-72.0 [facility] ResourcesHyrjczxWEHVMEJCVZ8749-91-71 21:02:03 Test Item Value Reference Range Interpretation Comments K-time (test code = K-time) 1.0 min 1.0-3.0 [facility] ResourcesIhnacnsSUIZASSUGB4958-69-51 21:02:03 Test Item Value Reference Range Interpretation Comments Max Amp (test code = Max Amp) 77.9 mm 50.0-70.0 [facility] ResourcesOjzncmfHRJUTYFLNI4978-45-91 21:02:03 Test Item Value Reference Range Interpretation Comments TEG Interp (test Thrombelastograph results code = TEG show shortened value of R Interp) and increased values of both Angle Alpha and MA. These findings are suggestive of platelet and enzymatic hypercoagulation which may be seen in early phase of DIC. Monitor for DIC with DIC panel may be indicated. CPT:03343 [facility] ResourcesFctmghfZIXPXVYJSU2017-72-61 14:08:15 Test Item Value Reference Range Interpretation Comments Vanco Lvl (test code = Vanco Lvl) 12.4 [employer] [id number] 21:00:00 Test Item Value Reference Range Interpretation Comments ABO/Rh (test code = ABO/Rh) O POS [facility] [employer] [id number] 21:00:00 Test Item Value Reference Range Interpretation Comments Antibody Scrn (test Negative (10/25/13 4:00 code = Antibody Scrn) PM) [facility] ResourcesOpjeezqUSPMLKFLEJ0974-19-79 22:34:56 Test Item Value Reference Range Interpretation Comments Vanco Tr TND (test code = Vanco Tr TND) 1800 [facility] ResourcesFgsxltsCUCQEGAGEN4643-12-50 22:34:56 Test Item Value Reference Range Interpretation Comments Vanco Tr (test code = Vanco Tr) 12.2 [facility] [employer] [id number] 15:08:01 Test Item Value Reference Range Interpretation Comments Bili Direct (test code 0.1 See_Comment [Aut omated message] The = Bili Direct) system which generated this result tra nsmitted reference range : <=0.3. The reference r matthieu was not used to int erpret this result as brielle l/abnormal. [facility]2014-08-08 15:08:01 Test Item Value Reference Range Interpretation Comments Bili Total (test code = Bili Total) 0.4 0.2-1.3 [facility]2014-08-08 15:08:01 Test Item Value Reference Range Interpretation Comments ALT (test code = ALT) 116 See_Comment [Auto mated message] The system which ge nerated this result transmit yanely reference range : <=65. The reference range was not used to interpr et this result as brielle l/abnormal. [facility]2014-08-08 15:08:01 Test Item Value Reference Range Interpretation Comments Albumin Lvl (test code = Albumin Lvl) 2.4 3.5-5.0 [facility]2014-08-08 15:08:01 Test Item Value Reference Range Interpretation Comments Alk Phos (test code = Alk Phos) 80 39-136 [facility]2014-08-08 15:08:01 Test Item Value Reference Range Interpretation Comments AST (test code = AST) 53 See_Comment [Auto mated message] The system which ge nerated this result transmit yanely reference range : <=37. The reference range was not used to interpr et this result as brielle l/abnormal. [facility]2014-08-08 15:08:01 Test Item Value Reference Range Interpretation Comments Globulin (test code = Globulin) 3.2 2.0-4.0 [facility]2014-08-08 15:08:01 Test Item Value Reference Range Interpretation Comments A/G Ratio (test code = A/G Ratio) 0.8 0.7-1.6 [facility]2014-08-08 15:08:01 Test Item Value Reference Range Interpretation Comments Bili Indirect (test 0.3 See_Comment [Automa yanely message] The code = Bili Indirect) system which generated this result tra nsmitted reference range : <=1.0. The reference r matthieu was not used to int erpret this result as normal/abnormal . [facility] [id number] 15:08:01 Test Item Value Reference Range Interpretation Comments Total Protein (test code = Total 5.6 6.4-8.4 Protein) [facility] SouthWhscmqrHOLMDFCZSG8963-16-59 15:08:01 Test Item Value Reference Range Interpretation Comments Vanco Tr (test code = Vanco Tr) 30.1 [facility] SouthJblwjbiLRCIGGAEZM3757-07-48 15:08:01 Test Item Value Reference Range Interpretation Comments Vanco Tr TND (test code = Vanco Tr TND) 0930 [facility] SouthCARAC GIASXCR3911-07-64 01:47:00 Test Item Value Reference Range Interpretation Comments CK MB (test code = CK MB) 4.9 0.5-3.6 [facility] ResourcesannCARAC [id number] 01:47:00 Test Item Value Reference Range Interpretation Comments CK MB Index (test 3.1 See_Comment [Automate d message] The code = CK MB Index) system w [facility] generated this result transmit yanely reference range : <=2.5. The reference range was not used to interpr et this result as brielle l/abnormal. [facility] [id number] 01:47:00 Test Item Value Reference Range Interpretation Comments Total CK (test code = Total CK) 156 12-191 [facility] [id number] 01:47:00 Test Item Value Reference Range Interpretation Comments Troponin-T (test code 0.290 See_Comment [Auto mated message] The = Troponin-T) system which g enerated this result transmit yanely reference range : <=0.100. The reference r matthieu was not used to interpr et this result as brielle l/abnormal. [facility] ResourcesAzgnjmaWRQWZHIVD2702-68-34 01:47:00 Test Item Value Reference Range Interpretation Comments Myoglobin (test code = Myoglobin) 56 25-72 [facility] ResourcesQgmdekgSEAIRM3739-14-47 18:50:03 Test Item Value Reference Range Interpretation Comments LDL (Calculated) (test code = LDL 147 (Calculated)) [facility] ResourcesUevukwjFMFMSU2461-73-95 18:50:03 Test Item Value Reference Range Interpretation Comments VLDL (test code = VLDL) 31 [facility] ResourcesIpclifkNOLSNE1303-88-13 18:50:03 Test Item Value Reference Range Interpretation Comments Trig (test code = Trig) 153 [facility] ResourcesXhmznvoNDRAFW0309-44-62 18:50:03 Test Item Value Reference Range Interpretation Comments HDL (test code = HDL) [facility]OLBRCB0829[facility]-23 18:50:03 Test Item Value Reference Range Interpretation Comments Chol (test code = Chol) 202 [facility] LaahysvJRNAXV6526-62-13 18:50:03 Test Item Value Reference Range Interpretation Comments CHD Risk (test code = CHD Risk) 8.42 4.00-7.30 [facility] ZctbqbuANMPEWLHEP8741-65-58 14:38:19 Test Item Value Reference Range Interpretation Comments Vanco Tr TND (test code = Vanco Tr TND) 0230 [facility] JbwgqemGHNXCNESVF5007-07-82 14:38:19 Test Item Value Reference Range Interpretation Comments Vanco Tr (test code = Vanco Tr) 14.9 [facility] [employer]AC [id number] 13:20:54 Test Item Value Reference Range Interpretation Comments Total CK (test code = Total CK) 259 12-191 [facility] ResourcesCircle 1 NetworkAC [id number] 13:20:54 Test Item Value Reference Range Interpretation Comments CK MB Index (test 5.0 See_Comment [Automate d message] The code = CK MB Index) system w [facility] generated this result transmit yanely reference range : <=2.5. The reference range was not used to interpr et this result as brielle l/abnormal. [facility] [employer]AC [id number] 13:20:54 Test Item Value Reference Range Interpretation Comments CK MB (test code = CK MB) 12.9 0.5-3.6 [facility] [employer]AC [id number] 13:20:28 Test Item Value Reference Range Interpretation Comments Troponin-T (test code 0.417 See_Comment [Auto mated message] The = Troponin-T) system which g enerated this result transmit yanely reference range : <=0.100. The reference r matthieu was not used to interpr et this result as brielle l/abnormal. [facility] [employer] [id number] 13:20:22 Test Item Value Reference Range Interpretation Comments Troponin-I (test code 5.43 See_Comment [Auto mated message] The = Troponin-I) system which g enerated this result transmit yanely reference range : <=0.40. The reference r matthieu was not used to interpr et this result as brielle l/abnormal. vivitannCARCryoportAC [id number] 07:11:43 Test Item Value Reference Range Interpretation Comments CK MB (test code = CK MB) 20.7 0.5-3.6 [facility] [id number] 07:11:43 Test Item Value Reference Range Interpretation Comments CK MB Index (test 5.8 See_Comment [Automate d message] The code = CK MB Index) system w [facility] generated this result transmit yanely reference range : <=2.5. The reference range was not used to interpr et this result as brielle l/abnormal. [facility] [employer] [id number] 00:47:00 Test Item Value Reference Range Interpretation Comments Troponin-I (test code 9.41 See_Comment [Auto mated message] The = Troponin-I) system which g enerated this result transmit yanely reference range : <=0.40. The reference r matthieu was not used to interpr et this result as brielle l/abnormal. [facility] [employer] [id number] 21:45:55 Test Item Value Reference Range Interpretation Comments Lactic Acid Lvl (test code = Lactic 0.6 0.5-2.2 Acid Lvl) [facility] [employer] [id number] 15:43:00 Test Item Value Reference Range Interpretation Comments RBC product (test code Product available = RBC product) (10/22/13 10:43 AM) [facility] [employer] [id number] 14:40:57 Test Item Value Reference Range Interpretation Comments A/G Ratio (test code = A/G Ratio) 0.8 0.7-1.6 [facility] [employer] [id number] 14:40:57 Test Item Value Reference Range Interpretation Comments Globulin (test code = Globulin) 3.0 2.0-4.0 [facility] [employer] [id number] 14:40:57 Test Item Value Reference Range Interpretation Comments B/C Ratio (test code = B/C Ratio) 43 6-25 [facility] [employer] [id number] 14:40:57 Test Item Value Reference Range Interpretation Comments Total Protein (test code = Total 5.4 6.4-8.4 Protein) [facility] [employer] [id number] 14:40:57 Test Item Value Reference Range Interpretation Comments Alk Phos (test code = Alk Phos) 96 39-136 [facility]2014-08-06 14:40:57 Test Item Value Reference Range Interpretation Comments AST (test code = AST) 195 See_Comment [Auto mated message] The system which ge nerated this result transmit yanely reference range : <=37. The reference range was not used to interpr et this result as brielle l/abnormal. [facility]2014-08-06 14:40:57 Test Item Value Reference Range Interpretation Comments Bili Total (test code = Bili Total) 0.8 0.2-1.3 [facility]2014-08-06 14:40:57 Test Item Value Reference Range Interpretation Comments ALT (test code = ALT) 164 See_Comment [Auto mated message] The system which ge nerated this result transmit yanely reference range : <=65. The reference range was not used to interpr et this result as brielle l/abnormal. [facility]2014-08-06 14:40:57 Test Item Value Reference Range Interpretation Comments Albumin Lvl (test code = Albumin Lvl) 2.4 3.5-5.0 [facility]2014-08-06 14:40:27 Test Item Value Reference Range Interpretation Comments Bili Direct (test code 0.4 See_Comment [Aut omated message] The = Bili Direct) system which generated this result tra nsmitted reference range : <=0.3. The reference r matthieu was not used to int erpret this result as brielle l/abnormal. [facility]2014-08-06 14:40:27 Test Item Value Reference Range Interpretation Comments Bili Indirect (test 0.4 See_Comment [Automa yanely message] The code = Bili Indirect) system which generated this result tra nsmitted reference range : <=1.0. The reference r matthieu was not used to int erpret this result as normal/abnormal . [facility]2014-08-06 11:43:00 Test Item Value Reference Range Interpretation Comments Lactic Acid Lvl (test code = Lactic 1.7 0.5-2.2 Acid Lvl) [facility] Camp[id number] 11:43:00 Test Item Value Reference Range Interpretation Comments Bands (test code = 1.0 See_Comment [Automat ed message] The Bands) system which ge nerated this result transmit yanely reference range : <=11.0. The reference r matthieu was not used to interpr et this result as brielle l/abnormal. [facility] AlmaNkmczbiSTWEVDWGHB2729-94-15 11:43:00 Test Item Value Reference Range Interpretation Comments Plt Morph (test code = Normal (10/22/13 6:43 AM) Plt Morph) [facility] AlmaRtvdiyvBWKLGWTTAB8416-00-76 11:43:00 Test Item Value Reference Range Interpretation Comments Atypical Lymphs (test code = Atypical 0.0 Lymphs) [facility] [id number] 11:43:00 Test Item Value Reference Range Interpretation Comments Metamyelocytes (test code 6.0 See_Comment [ Automated message] = Metamyelocytes) The system which generated this result transmitted ref erence range: <=1.0. T he reference range was not used to int erpret this result as normal/abnormal . [facility] SouthVdokejlVJFGFJWNF6411-92-34 11:43:00 Test Item Value Reference Range Interpretation Comments Myoglobin (test code = Myoglobin) 328 25-72 [facility] [id number] 07:58:00 Test Item Value Reference Range Interpretation Comments FFP product (test code Product available = FFP product) (10/22/13 2:58 AM) [facility] [id number] 07:56:00 Test Item Value Reference Range Interpretation Comments Platelet product (test Product available code = Platelet (10/22/13 2:56 AM) product) [facility] [id number] 07:47:00 Test Item Value Reference Range Interpretation Comments RBC product (test code Product available = RBC product) (10/22/13 2:47 AM) [facility] AlmaBaqszquNKDJZBVHGX3414-30-52 07:45:00 Test Item Value Reference Range Interpretation Comments Metamyelocytes (test code 4.0 See_Comment [ Automated message] = Metamyelocytes) The system which generated this result transmitted ref erence range: <=1.0. T he reference range was not used to int erpret this result as normal/abnormal . [facility]maMvzvlnsOOTWTUIBUW0572-83-74 07:45:00 Test Item Value Reference Range Interpretation Comments Atypical Lymphs (test code = Atypical 0.0 Lymphs) [facility] CampusQwrybcgMIGMFLGGMA6896-57-59 07:45:00 Test Item Value Reference Range Interpretation Comments Bands (test code = 8.0 See_Comment [Automat ed message] The Bands) system which ge nerated this result transmit yanely reference range : <=11.0. The reference r matthieu was not used to interpr et this result as brielle l/abnormal. [facility] CampusKmtbljmIJOTSJVZHR6124-07-02 07:45:00 Test Item Value Reference Range Interpretation Comments Max Amp (test code = Max Amp) 74.0 mm 50.0-70.0 [facility] CampusWhhhjrzJFHKLWTIKW6617-17-91 07:45:00 Test Item Value Reference Range Interpretation Comments G-value (test code = G-value) 14.2 4.5-11.0 [facility] CampusIutnxcaCAGVTXSJZD7412-90-81 07:45:00 Test Item Value Reference Range Interpretation Comments Ly30 (test code = 1.4 See_Comment [Automate d message] The Ly30) system which ge nerated this result transmit yanely reference range : <=7.5. The reference range was not used to interpr et this result as brielle l/abnormal. [facility] CampusMxjkmpqNQLIBMAEDB5967-32-45 07:45:00 Test Item Value Reference Range Interpretation Comments Coag Index (test code 4.9 See_Comment [Auto mated message] The = Coag Index) system which g enerated this result transmit yanely reference range : <=3.0. The reference range was not used to interpr et this result as brielle l/abnormal. [facility] CampusLzwcqqaUSJUASCWBB2225-43-95 07:45:00 Test Item Value Reference Range Interpretation Comments TEG Interp (test Thrombelastograph results code = TEG show shortened value of R Interp) and increased values of both Angle Alpha and MA. These findings are suggestive of platelet and enzymatic hypercoagulation which may be seen in early phase of DIC. Monitor for DIC with DIC panel may be indicated. CPT:82916 [facility] CampusSofpnsxFJHORSWJOY4219-74-60 07:45:00 Test Item Value Reference Range Interpretation Comments R-time (test code = R-time) 3.2 min 5.0-10.0 [facility] CampusOxqoufmRPGYCZFVUX2817-92-72 07:45:00 Test Item Value Reference Range Interpretation Comments K-time (test code = K-time) 0.8 min 1.0-3.0 [facility] AlmaOtyupdjEDUDMLDGPA9543-59-26 07:45:00 Test Item Value Reference Range Interpretation Comments Angle (test code = Angle) 79.5 degrees 53.0-72.0 [facility] AlmaEqbwovzTYTGBXGJRG8652-78-32 07:45:00 Test Item Value Reference Range Interpretation Comments TEG Data (test code = See Note 27(10/22/13 2:45 TEG Data) AM) [facility] [id number] 07:32:00 Test Item Value Reference Range Interpretation Comments Platelet product (test Product available code = Platelet (10/22/13 2:32 AM) product) [facility] [id number] 06:56:00 Test Item Value Reference Range Interpretation Comments FFP product (test code Product available = FFP product) (10/22/13 1:56 AM) [facility] [id number] 06:31:00 Test Item Value Reference Range Interpretation Comments RBC product (test code Product available = RBC product) (10/22/13 1:31 AM) [facility]KayrbwaPVVBNRUYH9679-12-40 05:37:07 Test Item Value Reference Range Interpretation Comments Myoglobin (test code = Myoglobin) 993 25-72 [facility] SouthQsaeychUBBMOSPXYT0360-54-07 05:37:01 Test Item Value Reference Range Interpretation Comments Hypochrom (test code = Slight (10/22/13 12:37 Hypochrom) AM) [facility] AlmaYpzbgboEBCQFEEFEG0665-17-48 05:37:01 Test Item Value Reference Range Interpretation Comments Microcyte (test code = 1+ *ABN*(10/22/13 Microcyte) 12:37 AM) [facility] AlmaTiopcomKPFSUYOTJN3913-85-50 05:37:01 Test Item Value Reference Range Interpretation Comments Macrocyte (test code = 1+ *ABN*(10/22/13 Macrocyte) 12:37 AM) [facility] SouthImwaomhMDLSCFUTMU1370-84-95 05:37:01 Test Item Value Reference Range Interpretation Comments NRBC (test code = NRBC) 1 [facility] SouthDzgcaeuFLMYVSMTRM9258-93-76 05:37:01 Test Item Value Reference Range Interpretation Comments Myelocytes (test code = Myelocytes) 3.0 [facility] JXIGGJU4974-64-76 05:30:00 Test Item Value Reference Range Interpretation Comments Antibody Scrn (test Negative 1(10/22/13 code = Antibody Scrn) 12:30 AM) [facility] [id number] 05:30:00 Test Item Value Reference Range Interpretation Comments ABO/Rh (test code = ABO/Rh) O POS [facility] SouthEurotriUMIUEX8256-13-51 03:40:53 Test Item Value Reference Range Interpretation Comments Protein CSF (test code = Protein CSF) 54 15-45 [facility] SouthEurotriCWOHTS7861-19-24 03:40:53 Test Item Value Reference Range Interpretation Comments Glucose CSF (test code = Glucose CSF) 85 45-80 [facility] SouthEurotriOVIWBZ6949-27-96 03:40:48 Test Item Value Reference Range Interpretation Comments RBC CSF (test code = 80 See_Comment [Autom ated message] The RBC CSF) system which ge nerated this result transmit yanely reference range : <=03. The reference range was not used to interpr et this result as brielle l/abnormal. [facility] SouthEurotriTNAIJQ0036-62-15 03:40:48 Test Item Value Reference Range Interpretation Comments WBC CSF (test code = 1 See_Comment [Autom ated message] The WBC CSF) system which ge nerated this result transmit yanely reference range : <=53. The reference range was not used to interpr et this result as brielle l/abnormal. [facility] SouthEurotriHOZJXI0627-44-22 03:40:48 Test Item Value Reference Range Interpretation Comments Tube Num CSF (test xxxxxxx (10/21/13 10:40 code = Tube Num CSF) PM) [facility] SouthEurotriPTHHFZ5358-91-16 03:40:48 Test Item Value Reference Range Interpretation Comments Color CSF (test code Colorless (10/21/13 10:40 = Color CSF) PM) [facility] SouthEurotriKFQZUN5633-38-23 03:40:48 Test Item Value Reference Range Interpretation Comments Clarity CSF (test code Slight *ABN*(10/21/13 = Clarity CSF) 10:40 PM) [facility] SouthEurotriKOWOLC5729-68-26 03:40:48 Test Item Value Reference Range Interpretation Comments Supernat CSF (test Colorless (10/21/13 10:40 code = Supernat CSF) PM) [facility] AND [id number] 01:35:51 Test Item Value Reference Range Interpretation Comments UA Urobilinogen (test code = UA <=1.0 mg/dL 0.1-1.0 Urobilinogen) [facility] AND [id number] 01:35:51 Test Item Value Reference Range Interpretation Comments UA Protein (test code = UA Protein) 30 mg/dL [facility] AND [id number] 01:35:51 Test Item Value Reference Range Interpretation Comments UA pH (test code = UA pH) 5.0 5.0-8.0 [facility] AND [id number] 01:35:51 Test Item Value Reference Range Interpretation Comments UA Spec Grav (test code = UA Spec Grav) 1.021 [facility] AND [id number] 01:35:51 Test Item Value Reference Range Interpretation Comments UA Turbidity (test code Slight *ABN*(10/21/13 = UA Turbidity) 8:35 PM) [facility] AND [id number] 01:35:51 Test Item Value Reference Range Interpretation Comments UA Color (test code = Yellow *NA*(10/21/13 8:35 UA Color) PM) [facility] AND [id number] 01:35:51 Test Item Value Reference Range Interpretation Comments UA Bacteria (test code = UA Occasional /HPF Bacteria) [facility] AND [id number] 01:35:51 Test Item Value Reference Range Interpretation Comments UA WBC (test code = 4 See_Comment [Automa yanely message] The UA WBC) system which ge nerated this result transmit yanely reference range : <=5. The reference range was not used to interpr et this result as brielle l/abnormal. [facility] AND [id number] 01:35:51 Test Item Value Reference Range Interpretation Comments UA Sq Epi (test code = UA Sq Epi) Many /LPF [facility] AND [id number] 01:35:51 Test Item Value Reference Range Interpretation Comments UA Mucus (test code = UA Mucus) Few /LPF [facility] AND [id number] 01:35:51 Test Item Value Reference Range Interpretation Comments UA Bili (test code = Negative *NA*(10/21/13 UA Bili) 8:35 PM) [facility] AND [id number] 01:35:51 Test Item Value Reference Range Interpretation Comments UA Ketones (test code = UA Negative mg/dL Ketones) [facility] AND [id number] 01:35:51 Test Item Value Reference Range Interpretation Comments UA Glucose (test code = UA Negative mg/dL Glucose) [facility] AND [id number] 01:35:51 Test Item Value Reference Range Interpretation Comments UA Leuk Est (test code Trace *ABN*(10/21/13 8:35 = UA Leuk Est) PM) [facility] AND [id number] 01:35:51 Test Item Value Reference Range Interpretation Comments UA Nitrite (test code Negative (10/21/13 8:35 = UA Nitrite) PM) [facility] AND [id number] 01:35:51 Test Item Value Reference Range Interpretation Comments UA Blood (test code = Negative (10/21/13 8:35 UA Blood) PM) [facility] AND [id number] 01:35:51 Test Item Value Reference Range Interpretation Comments UA Hyal Cast (test 31 See_Comment [Automat ed message] The code = UA Hyal Cast) system which generated this result transmit yanely reference range : <=2. The reference range was not used to interpr et this result as brielle l/abnormal. [facility] AND [id number] 01:35:51 Test Item Value Reference Range Interpretation Comments UA Renal Epi (test code = UA Renal Epi) 1 [facility] AND [id number] 01:35:51 Test Item Value Reference Range Interpretation Comments UA Sperm (test code = UA Occasional /HPF Sperm) [facility] SouthTeobobtLIMPEVJACQ7777-07-99 00:07:00 Test Item Value Reference Range Interpretation Comments RBC Morph (test code = Normal (10/21/13 7:07 PM) RBC Morph) [facility] SouthMOLECULAR [id number] 21:38:32 Test Item Value Reference Range Interpretation Comments C difficile DNA (test Negative 28(10/21/13 code = C difficile DNA) 4:38 PM) [facility] SouthBODY [id number] 21:12:00 Test Item Value Reference Range Interpretation Comments Lactic Acid CSF (test code = Lactic 3.2 0.6-2.2 Acid CSF) [facility]2014-08-04 21:12:00 Test Item Value Reference Range Interpretation Comments Protein CSF (test code = Protein CSF) 34 15-45 [facility] [id number] 21:12:00 Test Item Value Reference Range Interpretation Comments Glucose CSF (test code = Glucose CSF) 93 45-80 [facility]2014-08-04 21:12:00 Test Item Value Reference Range Interpretation Comments Comment CSF (test Differential not code = Comment CSF) performed on WBC count of less than 5. [facility]2014-08-04 21:12:00 Test Item Value Reference Range Interpretation Comments Supernat CSF (test Colorless (10/20/13 4:12 code = Supernat CSF) PM) [facility]2014-08-04 21:12:00 Test Item Value Reference Range Interpretation Comments WBC CSF (test code = 1 See_Comment [Autom ated message] The WBC CSF) system which ge nerated this result transmit yanely reference range : <=53. The reference range was not used to interpr et this result as brielle l/abnormal. [facility]2014-08-04 21:12:00 Test Item Value Reference Range Interpretation Comments RBC CSF (test code = 67 See_Comment [Autom ated message] The RBC CSF) system which ge nerated this result transmit yanely reference range : <=03. The reference range was not used to interpr et this result as brielle l/abnormal. [facility]2014-08-04 21:12:00 Test Item Value Reference Range Interpretation Comments Tube Num CSF (test xxxxxxx (10/20/13 4:12 PM) code = Tube Num CSF) [facility]2014-08-04 21:12:00 Test Item Value Reference Range Interpretation Comments Clarity CSF (test code = Clear (10/20/13 4:12 Clarity CSF) PM) [facility] [id number] 21:12:00 Test Item Value Reference Range Interpretation Comments Color CSF (test code Colorless (10/20/13 4:12 = Color CSF) PM) [facility] [id number] 21:12:00 Test Item Value Reference Range Interpretation Comments IgG Lvl CSF (test code = IgG Lvl CSF) 4.1 2.0-4.0 [facility] SouthIxofrhdFVTFIPCUQV5893-11-15 21:12:00 Test Item Value Reference Range Interpretation Comments Alb (CPE) (test code = Alb (CPE)) 2600.0 3400.0-5000.0 [facility] HospitalYrbladpHSWGDTTEPR1705-54-30 21:12:00 Test Item Value Reference Range Interpretation Comments IgG Index (test code = IgG Index) 0.6 0.3-0.7 [facility] SouthCiewinbYHJNOZZDKO7992-20-66 21:12:00 Test Item Value Reference Range Interpretation Comments IgG (CPE) (test code = IgG (CPE)) 6678 478-9369 [facility] SouthQxzofbvJTUFBCAQSU0409-11-19 21:12:00 Test Item Value Reference Range Interpretation Comments Alb CSF (CPE) (test code = Alb CSF 16.9 14.0-25.0 (CPE)) [facility] HospitalXgxzhsuQOEAFMAMWS9851-98-65 21:12:00 Test Item Value Reference Range Interpretation Comments PE Interp CSF CSF protein electrophoresis (test code = PE did not reveal evidence of Interp CSF) an oligoclonal process in the DATA REVIEWER. The CSF IgG index is within the reference range indicating that there is no elevation in intracerebral IgG synthesis. There is also no evidence of increased permeability of the blood brain barrier based on the CSF/serum albumin ratio. The electronic medical record has been reviewed for relevant history. I have personally reviewed the test results and concur with the resident's interpretation. CPT: 01291-HL [facility] Hospit[id number] 21:12:00 Test Item Value Reference Range Interpretation Comments Description CSF (test The gel demonstrates code = Description appropriate resolution CSF) of the main protein bands. The gamma region shows continuous distribution of proteins both in the CSF and in the serum. No oligoclonal bands are detected. [facility] AND [id number] 17:42:30 Test Item Value Reference Range Interpretation Comments UA Urobilinogen (test code = UA <=1.0 mg/dL 0.1-1.0 Urobilinogen) [facility] AND [id number] 17:42:30 Test Item Value Reference Range Interpretation Comments UA RBC (test code = 7 See_Comment [Automa yanely message] The UA RBC) system which ge nerated this result transmit yanely reference range : <=2. The reference range was not used to interpr et this result as brielle l/abnormal. [facility] AND [id number] 17:42:30 Test Item Value Reference Range Interpretation Comments UA Mucus (test code = UA Mucus) Few /LPF [facility] AND [id number] 17:42:30 Test Item Value Reference Range Interpretation Comments UA Amorph Danyelle (test code = UA Many /HPF Amorph Danyelle) [facility] AND [id number] 17:42:30 Test Item Value Reference Range Interpretation Comments UA WBC (test code = 1 See_Comment [Automa yanely message] The UA WBC) system which ge nerated this result transmit yanely reference range : <=5. The reference range was not used to interpr et this result as brielle l/abnormal. [facility] AND [id number] 17:42:30 Test Item Value Reference Range Interpretation Comments UA Leuk Est (test Negative (10/19/13 12:42 code = UA Leuk Est) PM) [facility] AND [id number] 17:42:30 Test Item Value Reference Range Interpretation Comments UA Nitrite (test code Negative (10/19/13 12:42 = UA Nitrite) PM) [facility] AND [id number] 17:42:30 Test Item Value Reference Range Interpretation Comments UA Blood (test code = Negative (10/19/13 12:42 UA Blood) PM) [facility] AND [id number] 17:42:30 Test Item Value Reference Range Interpretation Comments UA Glucose (test code = UA Negative mg/dL Glucose) [facility] AND [id number] 17:42:30 Test Item Value Reference Range Interpretation Comments UA Ketones (test code = UA Negative mg/dL Ketones) [facility] AND [id number] 17:42:30 Test Item Value Reference Range Interpretation Comments UA pH (test code = UA pH) 7.5 5.0-8.0 [facility] AND [id number] 17:42:30 Test Item Value Reference Range Interpretation Comments UA Bili (test code = Negative *NA*(10/19/13 UA Bili) 12:42 PM) [facility] AND [id number] 17:42:30 Test Item Value Reference Range Interpretation Comments UA Protein (test code = UA Protein) 20 mg/dL [facility] AND [id number] 17:42:30 Test Item Value Reference Range Interpretation Comments UA Sq Epi (test code = UA Sq Epi) None Seen [facility] AND [id number] 17:42:30 Test Item Value Reference Range Interpretation Comments UA Spec Grav (test code = UA Spec Grav) 1.016 [facility] AND [id number] 17:42:30 Test Item Value Reference Range Interpretation Comments UA Turbidity (test code Marked *ABN*(10/19/13 = UA Turbidity) 12:42 PM) [facility] AND [id number] 17:42:30 Test Item Value Reference Range Interpretation Comments UA Color (test code = Yellow *NA*(10/19/13 UA Color) 12:42 PM) [facility]2014-08-03 05:00:09 Test Item Value Reference Range Interpretation Comments Bili Direct (test code 0.1 See_Comment [Aut omated message] The = Bili Direct) system which generated this result tra nsmitted reference range : <=0.3. The reference r matthieu was not used to int erpret this result as brielle l/abnormal. [facility]2014-08-03 05:00:09 Test Item Value Reference Range Interpretation Comments Bili Indirect (test 0.2 See_Comment [Automa yanely message] The code = Bili Indirect) system which generated this result tra nsmitted reference range : <=1.0. The reference r matthieu was not used to int erpret this result as normal/abnormal . [facility]2014-08-02 05:00:00 Test Item Value Reference Range Interpretation Comments Osmolality (test code = Osmolality) 311 280-300 [facility] [id number] 02:45:56 Test Item Value Reference Range Interpretation Comments Macrocyte (test code = 1+ *ABN*(10/16/13 Macrocyte) 9:45 PM) [facility] CampusHfwkgqxTDSRJOYSLP1174-63-41 02:45:56 Test Item Value Reference Range Interpretation Comments Smudge (test code = Slight (10/16/13 9:45 Smudge) PM) [facility] CampusJzblwcwRZRDHBIUUU6699-80-61 02:45:56 Test Item Value Reference Range Interpretation Comments Myelocytes (test code = Myelocytes) 2.0 [facility] CampusZoumtxaLCSSNANAZS5356-63-80 14:20:00 Test Item Value Reference Range Interpretation Comments Smudge (test code = Smudge) Occasional [facility] JURYSIN1527-17-02 09:30:00 Test Item Value Reference Range Interpretation Comments Antibody Scrn (test Negative (10/16/13 4:30 code = Antibody Scrn) AM) [facility] [id number] 09:30:00 Test Item Value Reference Range Interpretation Comments ABO/Rh (test code = ABO/Rh) O POS [facility] [id number] 04:18:00 Test Item Value Reference Range Interpretation Comments Macrocyte (test code = 1+ *ABN*(10/15/13 Macrocyte) 11:18 PM) [facility] CampusFjvqsrcCCCDJBUDTU7105-10-44 04:18:00 Test Item Value Reference Range Interpretation Comments Smudge (test code = Slight (10/15/13 11:18 Smudge) PM) [facility] CampusLhuuwjqKMSGBKQFHM2192-00-30 04:18:00 Test Item Value Reference Range Interpretation Comments NRBC (test code = NRBC) 1 [facility]maJkjwnlrZRWWDAMFDI2590-66-01 23:16:50 Test Item Value Reference Range Interpretation Comments Tot Cell Ct (test code = Tot Cell Ct) 100 1 [facility] AlmaYavlzqbVKNWJHUQHK6117-40-90 19:22:12 Test Item Value Reference Range Interpretation Comments Tot Cell Ct (test code = Tot Cell Ct) 100 1 [facility] AND [id number] 05:47:00 Test Item Value Reference Range Interpretation Comments UA Amorph Danyelle (test code = Occasional /HPF UA Amorph Danyelle) [facility] AND [id number] 05:47:00 Test Item Value Reference Range Interpretation Comments Micro? (test code = Performed *NA*(10/15/13 Micro?) 12:47 AM) [facility] AlmaWscojchZAGRDGJFZX7385-97-16 15:02:00 Test Item Value Reference Range Interpretation Comments NRBC (test code = NRBC) 1 [facility] [id number] 20:07:00 Test Item Value Reference Range Interpretation Comments Supernat CSF (test code Xanthoch = Supernat CSF) 19*ABN*(10/12/13 3:07 PM) [facility] [id number] 20:07:00 Test Item Value Reference Range Interpretation Comments Clarity CSF (test code = Clear (10/12/13 3:07 Clarity CSF) PM) [facility] [id number] 20:07:00 Test Item Value Reference Range Interpretation Comments WBC CSF (test code = 1 See_Comment [Autom ated message] The WBC CSF) system which ge nerated this result transmit yanely reference range : <=53. The reference range was not used to interpr et this result as brielle l/abnormal. [facility] [id number] 20:07:00 Test Item Value Reference Range Interpretation Comments RBC CSF (test code = 21 See_Comment [Autom ated message] The RBC CSF) system which ge nerated this result transmit yanely reference range : <=03. The reference range was not used to interpr et this result as brielle l/abnormal. [facility] [id number] 20:07:00 Test Item Value Reference Range Interpretation Comments Tube Num CSF (test See Note 18(10/12/13 code = Tube Num CSF) 3:07 PM) [facility] [id number] 20:07:00 Test Item Value Reference Range Interpretation Comments Color CSF (test code Xanthoch *ABN*(10/12/13 = Color CSF) 3:07 PM) [facility] [id number] 20:07:00 Test Item Value Reference Range Interpretation Comments Protein CSF (test code = Protein CSF) 57 15-45 [facility] [id number] 20:07:00 Test Item Value Reference Range Interpretation Comments Glucose CSF (test code = Glucose CSF) 88 45-80 [facility] AND [id number] 14:55:30 Test Item Value Reference Range Interpretation Comments UA RBC (test code = 2 See_Comment [Automa yanely message] The UA RBC) system which ge nerated this result transmit yanely reference range : <=2. The reference range was not used to interpr et this result as brielle l/abnormal. [facility] SouthSmzdukpFSAKQL9414-64-34 06:33:00 Test Item Value Reference Range Interpretation Comments Trig (test code = Trig) 501 [facility] SouthCHEM [id number] 01:35:00 Test Item Value Reference Range Interpretation Comments Osmolality (test code = Osmolality) 328 280-300 [facility] [id number] 19:18:00 Test Item Value Reference Range Interpretation Comments Osmolality (test code = Osmolality) 319 280-300 [facility] [id number] 07:08:56 Test Item Value Reference Range Interpretation Comments B/C Ratio (test code = B/C Ratio) 22 6-25 [facility] AlmaDwxbtwuIODQTJPFUK7802-47-53 22:11:00 Test Item Value Reference Range Interpretation Comments Microcyte (test code = 1+ *ABN*(10/08/13 Microcyte) 5:11 PM) [facility] [id number] 16:27:00 Test Item Value Reference Range Interpretation Comments Ammonia (test code = Ammonia) 22.0 [facility] [id number] 03:25:00 Test Item Value Reference Range Interpretation Comments Microcyte (test code = 1+ *ABN*(10/07/13 Microcyte) 10:25 PM) [facility] [id number] 17:00:00 Test Item Value Reference Range Interpretation Comments Comment CSF (test Differential not code = Comment CSF) performed on WBC count of less than 5. [facility] AND [id number] 14:50:00 Test Item Value Reference Range Interpretation Comments UA Hyal Cast (test 4 See_Comment [Automat ed message] The code = UA Hyal Cast) system which generated this result transmit yanely reference range : <=2. The reference range was not used to interpr et this result as brielle l/abnormal. [facility] AND [id number] 14:50:00 Test Item Value Reference Range Interpretation Comments UA Bacteria (test code = UA Occasional /HPF Bacteria) [facility] [id number] 14:50:00 Test Item Value Reference Range Interpretation Comments U Creatinine (test code = U Creatinine) 157.8 [facility] [id number] 14:50:00 Test Item Value Reference Range Interpretation Comments U Sodium (test code = U Sodium) [id number] 13:11:00 Test Item Value Reference Range Interpretation Comments Giant Plt (test code = Slight *ABN*(10/07/13 Giant Plt) 8:11 AM) [facility] [id number] 07:20:36 Test Item Value Reference Range Interpretation Comments Amylase Lvl (test code = Amylase Lvl) 67 25-115 [facility] [id number] 07:20:36 Test Item Value Reference Range Interpretation Comments Lipase Lvl (test code = Lipase Lvl) 177 73-393 [facility] [id number] 01:46:00 Test Item Value Reference Range Interpretation Comments Giant Plt (test code = Slight *ABN*(10/06/13 Giant Plt) 8:46 PM) [facility] [id number] 01:46:00 Test Item Value Reference Range Interpretation Comments RBC Morph (test code = Normal (10/06/13 8:46 RBC Morph) PM) [facility] [id number] 18:43:29 Test Item Value Reference Range Interpretation Comments Comment CSF (test Differential not code = Comment CSF) performed on WBC count of less than 5. [facility]2014-07-20 18:43:29 Test Item Value Reference Range Interpretation Comments Lactic Acid CSF (test code = Lactic 2.7 0.6-2.2 Acid CSF) [facility] [id number] 18:43:00 Test Item Value Reference Range Interpretation Comments PE Interp CSF CSF protein electrophoresis (test code = PE did not reveal evidence of Interp CSF) an oligoclonal process in the DATA REVIEWER. The CSF IgG index is within the reference range indicating that there is no elevation in intracerebral IgG synthesis. There is also no evidence of increased permeability of the blood brain barrier based on the CSF/serum albumin ratio. The electronic medical record has been reviewed for relevant history. I have personally reviewed the test results and concur with the resident's interpretation. CPT: 66654-BZ [facility] [id number] 18:43:00 Test Item Value Reference Range Interpretation Comments Description CSF (test The gel demonstrates code = Description appropriate resolution CSF) of the main protein bands. The gamma region shows continuous distribution of proteins both in the CSF and in the serum. No oligoclonal bands are detected. [facility] [id number] 18:43:00 Test Item Value Reference Range Interpretation Comments IgG Index (test code = IgG Index) 0.6 0.3-0.7 [facility] [id number] 18:43:00 Test Item Value Reference Range Interpretation Comments Alb CSF (CPE) (test code = Alb CSF 4.1 14.0-25.0 (CPE)) [facility] [id number] 18:43:00 Test Item Value Reference Range Interpretation Comments IgG (CPE) (test code = IgG (CPE)) [phone] [facility] R[id number] 18:43:00 Test Item Value Reference Range Interpretation Comments IgG Lvl CSF (test code = IgG Lvl CSF) 0.9 2.0-4.0 [facility] [id number] 18:43:00 Test Item Value Reference Range Interpretation Comments Alb (CPE) (test code = Alb (CPE)) 2700.0 3400.0-5000.0 [facility]BACT[facility] - [id number] 04:30:00 Test Item Value Reference Range Interpretation Comments MRSA by PCR (test Negative 29(09/29/13 code = MRSA by PCR) 11:30 PM) [facility] AND [id number] 04:30:00 Test Item Value Reference Range Interpretation Comments UA Trans Epi (test code = UA Trans Epi) 7 [facility]
[2022-11-29 20:01] LABS: Protime INR 1.11
--- NOTE | 2022-11-29 20:01 | RAD REPORT ---
EXAM DESCRIPTION: RADChest Single View11/29/2022 7:24 pm CLINICAL HISTORY: fall, left side chest pain COMPARISON: Chest Single View dated 04/18/2022; Chest Single View dated 04/08/2022; Chest Single View dated 08/09/2021; Head C Spine Cap Wo Con dated 11/29/2022 TECHNIQUE: Portable AP view of the chest. FINDINGS: Segment of tubing crossing across the chest wall suggestive of DENTAL SCHEDULING COORDINATOR shunt catheter, stable. Decreased inspiratory effort limits evaluation. The lungs are clear. Left basilar atelectasis. No pne umothorax or effusion. The cardiomediastinal contours are unremarkable. IMPRESSION: No acute cardiopulmonary process.
--- NOTE | 2022-11-29 20:20 | RAD REPORT ---
EXAM DESCRIPTION: CT - Head C Spine Cap Wo Con - 11/29/2022 7:35 pm CLINICAL HISTORY: fall COMPARISON: Head C Spine Cap W Con dated 04/08/2022; Head Brain Wo Cont dated 04/18/2022 TECHNIQUE: Head and cervical spine CT images were obtained without IV contrast. Chest, abdomen, and pelvis CT images were obtained following intravenous administration of 90 mL Isovue-300. Multiplanar reformats were generated and reviewed. All CT scans are performed using dose optimization technique as appropriate and may include automated exposure control or mA/KV adjustment according to patient size. FINDINGS: CT HEAD: No intracranial hemorrhage, mass effect, or edema. Stable sequelae of right craniotomy and left anter ior approach ventricular shunt catheter, in unchanged position. 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 Cerebellar atrophy a nd widening of the fourth ventricle, also stable. No evidence of acute territorial infarct. No midlin e shift or abnormal fluid collection. The ventricles are stable in caliber and configuration for age. Basal cisterns are patent. Mastoid aircells and paranasal sinuses are clear. No acute skull fracture . CT CERVICAL SPINE: No acute cervical spine fracture or subluxation. Vertebral body heights are well maintained. Facet mike ints are normal in alignment. No hyperattenuating canal hematoma. Prevertebral and paraspinous soft t issues are unremarkable. CT CHEST: No pneumothorax, pulmonary contusion or pleural fluid collection. Subsegmental left lingular atelecta sis No mediastinal hematoma and the aorta and pulmonary arteries are unremarkable. No chest will mass or abnormal axillary finding. No displaced rib fracture or other significant bony finding. CT ABDOMEN/ PELVIS: No evidence of traumatic injury to solid abdominal viscera. Gallbladder and biliary tree are unremark able. No bowel injury or significant finding. Left renal calculi, up to 6 millimeter. No free air, fr ee fluid or abnormal fat stranding. No urinary bladder abnormality. No significant bony finding. Healing/healed left fifth rib fracture IMPRESSION: No acute traumatic abnormalities. Stable intracranial findings with stable ventricular caliber and positioning of left ventriculostomy catheter as above. Left renal nonobstructing calculi up to 6 millimeter in greatest dimension.
--- NOTE | 2022-11-29 21:22 | EDPHYS ---
Physician Documentation [facility] Name: Chucky Weinberg Age: 52 yrs Sex: Male : 1970 Arrival Date: 11/29/2022 Time: 18:46 Bed 6 Private MD: ED Physician Lazaro Gomez HPI: 11/29 19:00 This 52 yrs old Male presents to ER via EMS with complaints of Fall Injury. cp 19:00 Details of fall: The patient fell from an upright position, while standing. cp 19:00 Patient is a 52-year-old male with past medical history significant for diabetes cp mellitus, hyperlipidemia who presents to the emergency department after reported fall from standing. Patient reports history of stroke in which he sustained left arm and left leg weakness. Patient reports he was at rehab today and thinks he overdid it. He became weak and lost his balance causing him to fall onto his left shoulder and left side of his chest. Patient denies any loss of consciousness, denies chest pain and/or syncope. Historical: - Allergies: 18:51 No Known Allergies; ld1 - PMHx: 18:51 Aneurysm; brain; CVA; Diabetes - NIDDM; Hyperlipidemia; left sided paralysis; Seizures; ld1 TIA; - Immunization history:: Adult Immunizations up to date. - Social history:: Smoking status: Patient denies any tobacco usage or history of. ROS: 19:05 Eyes: Negative for injury, pain, redness, and discharge. cp 19:05 Constitutional: Negative for fever. 19:05 Neck: Negative for pain at rest, stiffness. 19:05 Cardiovascular: Positive for pain to left lateral rib area. 19:05 Respiratory: Negative for cough, shortness of breath, wheezing. 19:05 Abdomen/GI: Negative for abdominal pain, vomiting, diarrhea, constipation. 19:05 Back: Negative for pain at rest. 19:05 MS/extremity: Positive for pain, of the left shoulder, Negative for decreased range of motion, deformity, paresthesias. 19:05 Neuro: Positive for weakness, Negative for altered mental status, headache, loss of consciousness, syncope, near syncope. 19:05 All other systems are negative. Exam: 19:10 ECG was reviewed by the Attending Physician. cp 19:12 Constitutional: The patient appears in no acute distress, alert, awake, cp non-diaphoretic, non-toxic, well developed, well nourished, obese, uncomfortable. 19:12 Head/Face: Normocephalic, atraumatic. cp 19:12 Eyes: Periorbital structures: appear normal, Pupils: equal, round, and reactive to cp light and accomodation, Extraocular movements: intact throughout, Sclera: no appreciated abnormality, Lids and lashes: appear normal, bilaterally. 19:12 ENT: External ear(s): are unremarkable, Nose: is normal, Mouth: Lips: moist, Oral mucosa: pink and intact, moist, Posterior pharynx: is normal, airway is patent, no erythema, no exudate. 19:12 Neck: C-spine: vertebral tenderness, is not appreciated, crepitus, is not appreciated. 19:12 Chest/axilla: Inspection: normal, Palpation: crepitus, is not appreciated, tenderness, that is moderate, of the left lateral anterior chest and left lateral posterior chest. 19:12 Cardiovascular: Rate: normal, Rhythm: regular. 19:12 Respiratory: the patient does not display signs of respiratory distress, Respirations: normal, no use of accessory muscles, no retractions, labored breathing, is not present, Breath sounds: are clear throughout, no decreased breath sounds, no stridor, no wheezing. 19:12 Abdomen/GI: Inspection: abdomen appears normal, Palpation: abdomen is soft and non-tender, in all quadrants. 19:12 Musculoskeletal/extremity: Extremities: noted in the left shoulder: pain, tenderness, There is no evidence of decreased ROM, deformity, Pulses: noted to be 2+ in the right radial artery and left radial artery. 19:12 Neuro: Orientation: to person, place \T\ time. Mentation: able to follow commands, Motor: moves all fours. Vital Signs: 18:48 BP 131 / 74; Pulse 76; Resp 16; Temp 98.1(O); Pulse Ox 100% on R/A; Weight 127.91 kg; ld1 Height 5 ft. 8 in. ; Pain 8/10; 18:51 BP 118 / 71; Pulse 78; Resp 18; Pulse Ox 100% on R/A; ld1 21:03 BP 135 / 83; Pulse 76; Resp 16; Temp 98; Pulse Ox 100% ; rv 18:48 Body Mass Index 42.88 (127.91 kg, 172.72 cm) ld1 18:48 Pain Scale: Adult ld1 [place] Coma Score: 21:03 Eye Response: spontaneous(4). Motor Response: obeys commands(6). Verbal Response: rv oriented(5). Total: 15. MDM: 18:57 Patient medically screened. 21:20 Data reviewed: vital signs, nurses notes, lab test result(s), EKG, radiologic studies, cp CT scan, plain films. 21:20 Differential diagnosis: closed head injury, contusion, fracture, multiple trauma. cp Consideration of Admission/Observation Escalation of care including admission/observation considered. I considered the following discharge prescriptions or medication management in the emergency department Medications were administered in the Emergency Department. See MAR. Response to treatment: the patient's symptoms have markedly improved after treatment, and as a result, I will discharge patient. 11/29 18:57 Order name: Basic Metabolic Panel; Complete Time: 21:09 11/29 21:12 Interpretation: Normal except: CRE 0.68; CA 8.3. 11/29 18:57 Order name: CBC with Diff; Complete Time: 21:09 11/29 21:10 Interpretation: Normal except: WBC 12.80; RBC 5.44; HGB 13.0; MCV 74.8; MCH 23.9; RDW cp 17.3; NEUT A 8.9. 11/29 18:57 Order name: Magnesium; Complete Time: 21:09 11/29 18:57 Order name: PT-INR; Complete Time: 21:09 11/29 18:57 Order name: Troponin HS; Complete Time: 21:09 11/29 18:57 Order name: XRAY Chest (1 view); Complete Time: 21:09 11/29 21:10 Interpretation: Report review. 11/29 19:03 Order name: CT Traumagram (Head C Spine CAP wo con); Complete Time: 21:09 11/29 21:12 Interpretation: Report reviewed. 11/29 18:57 Order name: EKG; Complete Time: 18:57 11/29 18:57 Order name: Cardiac monitoring; Complete Time: 19:01 11/29 18:57 Order name: EKG - Nurse/Tech; Complete Time: 19:14 11/29 18:57 Order name: IV Saline Lock; Complete Time: 19:14 cp 11/29 18:57 Order name: Labs collected and sent; Complete Time: 19:14 cp 11/29 18:57 Order name: O2 Per Protocol; Complete Time: 19:01 cp 11/29 18:57 Order name: O2 Sat Monitoring; Complete Time: 19:01 cp 11/29 19:25 Order name: Misc. Order: RECOLLECT BLUE TOP; Complete Time: 19:51 rv1 EC:10 Rate is 77 beats/min. Rhythm is regular. CO interval is normal. QRS interval is normal. cp QT interval is normal. T waves are Inverted in lead aVR. Interpreted by me. Reviewed by me. Administered Medications: 19:50 Drug: Acetaminophen PO 1000 mg Route: PO; rv 21:29 Follow up: Response: No adverse reaction rv 21:29 Drug: Ketorolac IM 30 mg Route: IM; Site: right deltoid; rv 21:29 Follow up: Response: No adverse reaction rv 21:29 Drug: Cyclobenzaprine PO 10 mg Route: PO; rv 21:29 Follow up: Response: Medication administered at discharge. rv Disposition: 11/30 19:45 Co-signature as Attending Physician, Lazaro Gomez DO I reviewed the patient's care ms3 provided by the Advanced Practice Provider and agree with the diagnosis and treatment plan. Disposition Summary: 11/29/22 21:21 Discharge Ordered Location: Home cp Problem: new cp Symptoms: have improved cp Condition: Stable cp Diagnosis - Fall on same level, unspecified cp - Chest pain, unspecified - from fall cp - Pain in left shoulder - from fall cp Followup: cp - With: Private Physician - When: 2 - 3 days - Reason: Recheck today's complaints Discharge Instructions: - Discharge Summary Sheet cp - Rib Contusion cp - Shoulder Pain cp - Shoulder Range of Motion Exercises cp Forms: - Medication Reconciliation Form cp - Thank You Letter cp - Antibiotic Education cp - Prescription Opioid Use cp - Patient Portal Instructions cp - Leadership Thank You Letter cp Prescriptions: - Naprosyn 500 mg Oral Tablet - take 1 tablet by ORAL route 2 times per day take with food; 20 tablet; Refills: cp 0, Product Selection Permitted - Cyclobenzaprine 10 mg Oral Tablet - take 1 tablet by ORAL route every 8 hours As needed; 20 tablet; Refills: 0, cp Product Selection Permitted Signatures: Dispatcher [employer] EDMS Teo Oconnor PA PA cp Dom Devine RN RN rv Lazaro Gomez DO DO ms3 Hannah Gomez RN RN ld1 Martha Multani rv1 Corrections: (The following items were deleted from the chart) 11/29 18:55 18:51 PSHx: pain pump-baclofen; ld1 ld1 18:55 18:51 PSHx: 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 cp cp 11/30 20:11/29 19:40 MS/extremity: Positive for pain, of the left shoulder, Negative for cp decreased range of motion, deformity, paresthesias, cp 11/30 20:11/29 19:40 Constitutional: Negative for fever, cp cp 11/30 20:11/29 19:40 Cardiovascular: Positive for pain to left lateral rib area, cp cp 11/30 20:11/29 19:40 Respiratory: Negative for cough, shortness of breath, wheezing, cp cp 11/30 20:11/29 19:40 Abdomen/GI: Negative for abdominal pain, vomiting, diarrhea, constipation, cp cp 11/30 21:11/29 19:40 Eyes: Negative for injury, pain, redness, and discharge, cp cp 11/30 20:11/29 19:40 Neck: Negative for pain at rest, stiffness, cp cp 11/30 20:11/29 19:40 Back: Negative for pain at rest, cp cp 11/30 20:11/29 19:40 Neuro: Positive for weakness, Negative for altered mental status, headache, cp loss of consciousness, syncope, near syncope, cp 11/30 20:11/29 19:40 All other systems are negative, cp cp
--- NOTE | 2022-11-29 21:22 | ER ---
Nurse's Notes [facility] Name: Chucky Weinberg Age: 52 yrs Sex: Male : 1970 Arrival Date: 11/29/2022 Time: 18:46 Bed 6 Private MD: Diagnosis: Fall on same level, unspecified;Chest pain, unspecified-from fall;Pain in left shoulder-from fall Presentation: 11/29 18:48 Chief complaint: EMS states: toned out to pt home for fall. 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 Pt c/o pain to left shoulder \T\ left rib cage. Coronavirus screen: At this time, the client does not indicate any symptoms associated with coronavirus-19. Ebola Screen: No symptoms or risks identified at this time. Initial Sepsis Screen: Does the patient meet any 2 criteria? No. Patient's initial sepsis screen is negative. Does the patient have a suspected source of infection? No. Patient's initial sepsis screen is negative. Risk Assessment: Do you want to hurt yourself or someone else? Patient reports no desire to harm self or others. Onset of symptoms was November 29, 2022. 18:48 Method Of Arrival: EMS: [facility] ld1 18:48 Acuity: JAVIER 3 ld1 Triage Assessment: 18:51 General: Appears in no apparent distress. comfortable, Behavior is calm, cooperative, ld1 appropriate for age. Pain: Complains of pain in left lateral anterior chest and anterior aspect of left shoulder Pain does not radiate. Pain currently is 8 out of 10 on a pain scale. Quality of pain is described as throbbing, Is continuous. EENT: No signs and/or symptoms were reported regarding the EENT system. Neuro: Level of Consciousness is awake, alert, obeys commands, Oriented to person, place, time, situation. Neuro: Weakness in left. Cardiovascular: Capillary refill < 3 seconds Patient's skin is warm and dry. Respiratory: Airway is patent Respiratory effort is even, unlabored. GI: Abdomen is round non-distended. : No signs and/or symptoms were reported regarding the genitourinary system. Derm: No signs and/or symptoms reported regarding the dermatologic system. Musculoskeletal: No deficits noted. Historical: - Allergies: 18:51 No Known Allergies; ld1 - PMHx: 18:51 Aneurysm; brain; CVA; Diabetes - NIDDM; Hyperlipidemia; left sided paralysis; Seizures; ld1 TIA; - Immunization history:: Adult Immunizations up to date. - Social history:: Smoking status: Patient denies any tobacco usage or history of. Screenin:56 [facility] ED Fall Risk Assessment (Adult) History of falling in the last 3 months, ld1 including since admission Yes- single mechanical fall (1 pt) Confusion or Disorientation No (0 pts) Impaired Gait Yes (1 pt). Abuse screen: Denies threats or abuse. Denies injuries from another. Nutritional screening: No deficits noted. Tuberculosis screening: No symptoms or risk factors identified. Assessment: 18:56 Reassessment: See triage assessment. ld1 21:03 Reassessment: Patient is alert, oriented x 3, equal unlabored respirations, skin rv warm/dry/pink. Patient denies pain at this time. Patient states feeling better. Vital Signs: 18:48 BP 131 / 74; Pulse 76; Resp 16; Temp 98.1(O); Pulse Ox 100% on R/A; Weight 127.91 kg; ld1 Height 5 ft. 8 in. ; Pain 8/10; 18:51 BP 118 / 71; Pulse 78; Resp 18; Pulse Ox 100% on R/A; ld1 21:03 BP 135 / 83; Pulse 76; Resp 16; Temp 98; Pulse Ox 100% ; rv 18:48 Body Mass Index 42.88 (127.91 kg, 172.72 cm) ld1 18:48 Pain Scale: Adult ld1 Tab Coma Score: 21:03 Eye Response: spontaneous(4). Motor Response: obeys commands(6). Verbal Response: rv oriented(5). Total: 15. ED Course: 18:48 Patient arrived in ED. ld1 18:50 Teo Oconnor PA is PHCP. cp 18:50 Lazaro Gomez DO is Attending Physician. cp 18:51 Triage completed. ld1 18:51 Arm band placed on right wrist. ld1 18:56 Patient has correct armband on for positive identification. Placed in gown. Bed in low ld1 position. Call light in reach. Side rails up X2. playground monitor on. Pulse ox on. NIBP on. Door closed. Noise minimized. Warm blanket given. 18:56 No provider procedures requiring assistance completed. ld1 19:10 Inserted saline lock: 20 gauge in right antecubital area, using aseptic technique. rv Blood collected. 19:15 Dom Devine, RN is Primary Nurse. rv 19:26 XRAY Chest (1 view) In Process Unspecified. EDMS 19:37 CT Traumagram (Head C Spine CAP wo con) In Process Unspecified. EDMS 21:30 Provided Education on: MEDICATIONS. rv 21:30 IV discontinued, intact, bleeding controlled, No redness/swelling at site. Pressure rv dressing applied. Administered Medications: 19:50 Drug: Acetaminophen PO 1000 mg Route: PO; rv 21:29 Follow up: Response: No adverse reaction rv 21:29 Drug: Ketorolac IM 30 mg Route: IM; Site: right deltoid; rv 21:29 Follow up: Response: No adverse reaction rv 21:29 Drug: Cyclobenzaprine PO 10 mg Route: PO; rv 21:29 Follow up: Response: Medication administered at discharge. rv Medication: 18:56 VIS not applicable for this client. ld1 Outcome: 21:21 Discharge ordered by MD. cp 21:29 Discharged to home via wheelchair. rv 21:29 Condition: good 21:29 Discharge instructions given to patient, Instructed on discharge instructions, follow up and referral plans. medication usage, Demonstrated understanding of instructions, follow-up care, medications, Prescriptions given X 2. 21:30 Patient left the ED. 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
[2022-11-29] MEDS ORDERED: CYCLOBENZAPRINE 10 MG TAB ONE (21:34)
[2022-11-29] MEDS ORDERED: KETOROLAC 30 MG/ML INJ ONE (21:35)
[2022-11-29 22:56] VITALS: O2SAT 100
[2022-11-29 23:00] VITALS: BP 135/83; TEMP 98
--- NOTE | 2022-11-30 13:01 | EKG ---
Test Date: 2022-11-29 Test Time: 19:05:41 Tetryl Nitrator Operator: RV MEASUREMENT RESULTS: Intervals: Rate: 77 VA: 160 QRSD: 82 QT: 396 QTc: 448 [place]: P: 30 VA: 160 QRS: 27 T: 14 INTERPRETIVE STATEMENTS: Normal sinus rhythm Normal ECG Compared to ECG 04/18/2022 06:53:57 No significant changes Electronically Signed On 11-30-22 13:00:22 CDT by Osvaldo Gudino
== END 2022-11-29 21:30 | disposition home or self-care (01) ==
LOC: ER 18:46
DX: R07.9 Chest pain, unspecified (principal); M25.512 Pain in left shoulder; W18.30XA Fall on same level, unspecified, initial encounter
CPT/HCPCS: 36415; 70450; 71045; 71250; 72125; 80048; 83735; 84484; 85025; 85610; 93005; 96372; 99285

== ENCOUNTER → 2023-04-17 | Emergency (ER) | payer OTHER ==
[~2023-04-17] MED LIST: HYDROCODONE/APAP 10/325 TAB ONE; IBUPROFEN 400 MG TAB ONE; methocarbamoL 750 MG TAB ONE
--- NOTE | 2023-04-17 22:26 | RAD REPORT ---
EXAM DESCRIPTION: RAD - Knee Left 3 View - 04/17/2023 10:19 pm CLINICAL HISTORY: L knee pain COMPARISON: No comparisons FINDINGS: Mild osteopenia. Mild tricompartmental osteoarthritis. No fracture or dislocation. No sign ificant joint fluid.
--- NOTE | 2023-04-17 23:49 | ER ---
Nurse's Notes [facility] Name: Chucky Weinberg Age: 52 yrs Sex: Male : 1970 Arrival Date: 04/17/2023 Time: 21:56 Bed 6 Private MD: Diagnosis: Sprain of other specified parts of left knee;Acute left knee sprain Presentation: 04/17 22:00 Chief complaint: EMS states: pt was standing up from chair and felt a "pop" to his left as6 knee and has been having pain. Coronavirus screen: At this time, the client does not indicate any symptoms associated with coronavirus-19. Ebola Screen: No symptoms or risks identified at this time. Initial Sepsis Screen: Does the patient meet any 2 criteria? No. Patient's initial sepsis screen is negative. Does the patient have a suspected source of infection? No. Patient's initial sepsis screen is negative. Risk Assessment: Do you want to hurt yourself or someone else? Patient reports no desire to harm self or others. Onset of symptoms was April 17, 2023. 22:00 Acuity: JAVIER 4 as6 22:00 Method Of Arrival: EMS: [facility] as6 Historical: - Allergies: 22:00 No Known Allergies; as6 - PMHx: 22:00 Aneurysm; brain; CVA; Diabetes - NIDDM; Hyperlipidemia; left sided paralysis; Seizures; as6 TIA; - Immunization history:: Adult Immunizations up to date. - Social history:: Smoking status: Patient/guardian denies using tobacco. - Family history:: not pertinent. Screenin:19 [facility] ED Fall Risk Assessment (Adult) History of falling in the last 3 months, tm6 including since admission Yes- single mechanical fall (1 pt) Confusion or Disorientation No (0 pts) Intoxicated or Sedated No (0 pts) Impaired Gait Yes (1 pt) Mobility Assist Device Used No (0 pt) Altered Elimination No (0 pt) Score/Fall Risk Level 3 or more points = High Risk Oriented to surroundings, Maintained a safe environment, Educated pt \\T\\ family on fall prevention, incl call for assistance when getting out of bed. Abuse screen: Denies threats or abuse. Denies injuries from another. Nutritional screening: No deficits noted. Tuberculosis screening: No symptoms or risk factors identified. Assessment: 22:00 General: Appears uncomfortable, Behavior is calm, cooperative. Pain: Complains of pain as6 in lateral aspect of left knee, posterior aspect of left knee, medial aspect of left knee and left knee. Neuro: Level of Consciousness is awake, alert, obeys commands, Oriented to person, place, time, situation. Cardiovascular: Capillary refill < 3 seconds Patient's skin is warm and dry. Pulses are palpable in left posterior tibial artery and left dorsalis pedis artery. Respiratory: Airway is patent Trachea midline Respiratory effort is even, unlabored, Respiratory pattern is regular, symmetrical. GI: No deficits noted. No signs and/or symptoms were reported involving the gastrointestinal system. : No deficits noted. No signs and/or symptoms were reported regarding the genitourinary system. EENT: No deficits noted. No signs and/or symptoms were reported regarding the EENT system. Derm: Skin is intact, is healthy with good turgor. Musculoskeletal: left sided paralysis from previous CVA Reports pain in lateral aspect of left knee, posterior aspect of left knee, medial aspect of left knee and left knee. 22:20 Reassessment: Patient appears in no apparent distress at this time. No changes from tm6 previously documented assessment. 23:03 Pain: Complains of pain in right trapezius, right scapular area and right subscapular tm6 area Pain currently is 9 out of 10 on a pain scale. Quality of pain is described as aching. Vital Signs: 21:59 BP 126 / 80; Pulse 71; Resp 18 S; Temp 97.5(O); Pulse Ox 93% on R/A; Weight 109.77 kg; as6 Height 5 ft. 9 in. (R); Pain 10/10; 23:02 BP 119 / 89; Pulse 84; Pulse Ox 95% on R/A; Pain 9/10; tm6 04/18 00:24 BP 111 / 70; Pulse 66; Pulse Ox 92% on R/A; tm6 04/17 21:59 Body Mass Index 35.74 (109.77 kg, 175.26 cm) as6 04/17 21:59 Pain Scale: Adult as6 23:02 Pain Scale: Adult tm6 ED Course: 04/17 21:58 Patient arrived in ED. jj6 21:58 Ap Walker, RN is Primary Nurse. as6 21:59 Adam Gary MD is Attending Physician. sp4 22:00 Arm band placed on. as6 22:01 Triage completed. as6 22:19 Patient has correct armband on for positive identification. Bed in low position. Call tm6 light in reach. Side rails up X2. Provided Education on: plan of care. Client placed on continuous cardiac and pulse oximetry monitoring. NIBP monitoring applied. Door closed. Noise minimized. 22:19 No provider procedures requiring assistance completed. tm6 22:20 Knee Left 3 View XRAY In Process Unspecified. EDMS 23:48 Tristan uGido MD is Referral Physician. sp4 04/18 00:24 knee splint placed to left knee. tm6 00:26 Patient did not have IV access during this emergency room visit. tm6 Administered Medications: 04/17 22:19 Drug: [place] PO 10 mg-325 mg 1 tabs PO once Route: PO; tm6 23:50 Follow up: Response: No adverse reaction as6 22:19 Drug: Methocarbamol PO 1500 mg PO once Route: PO; tm6 23:50 Follow up: Response: No adverse reaction as6 22:19 Drug: Ibuprofen PO 400 mg PO once Route: PO; tm6 23:50 Follow up: Response: No adverse reaction as6 23:31 Drug: [place] PO 10 mg-325 mg 1 tabs PO once Route: PO; tm6 23:50 Follow up: Response: No adverse reaction as6 Medication: 23:50 VIS not applicable for this client. as6 Outcome: 23:48 Discharge ordered by . sp4 04/18 00:25 Discharged to home via wheelchair, with family, tm6 Condition: stable Discharge instructions given to patient, Instructed on discharge instructions, follow up and referral plans. splint care Demonstrated understanding of instructions, follow-up care, medications, splint care, Prescriptions given X 2, 00:26 Patient left the ED. tm6 Signatures: Dispatcher [employer] EDMS Marina Chapman Ashby, LUCAS RN as6 Adam Gary MD MD sp4 Stefani Dailey RN RN tm6
--- NOTE | 2023-04-17 23:49 | EDPHYS ---
Physician Documentation [facility] Name: Chucky Weinberg Age: 52 yrs Sex: Male : 1970 Arrival Date: 04/17/2023 Time: 21:56 Bed 6 Private MD: ED Physician Adam Gary HPI: 04/17 21:59 This 52 yrs old Male presents to ER via Unassigned with complaints of Fall sp4 Injury, Knee Injury. 21:59 52-year-old male with history of prior hemorrhagic CVA and left-sided hemiparesis sp4 presents with acute fall at home and acute left knee pain.. 23:44 Allergies: No Known Allergies; PMHx: Aneurysm; brain; CVA; Diabetes - NIDDM; sp4 Hyperlipidemia; left sided paralysis; Seizures; TIA;. Historical: - Allergies: 22:00 No Known Allergies; as6 - PMHx: 22:00 Aneurysm; brain; CVA; Diabetes - NIDDM; Hyperlipidemia; left sided paralysis; Seizures; as6 TIA; - Immunization history:: Adult Immunizations up to date. - Social history:: Smoking status: Patient/guardian denies using tobacco. - Family history:: not pertinent. ROS: 23:44 Constitutional: Negative for fever, chills, and weight loss, MS/Extremity: Positive sp4 left knee pain after a fall 23:44 All other systems are negative, Exam: 23:44 Constitutional: This is a well developed, well nourished patient who is awake, alert, sp4 and in no acute distress. Patient is overweight male with left-sided hemiparesis,, left arm contracture cinema hemiparesis also left lower extremity contracture left lower extremity brace from a mobility. Head/Face: Normocephalic, atraumatic. Eyes: Pupils equal round and reactive to light, extra-ocular motions intact. Lids and lashes normal. Conjunctiva and sclera are not injected. Cornea within normal limits. Periorbital areas with no swelling, redness, or edema. ENT: Nares patent. No nasal discharge, no septal abnormalities noted. Tympanic membranes are normal and external auditory canals are clear. Oropharynx with no redness, swelling, or masses, exudates, or evidence of obstruction, uvula midline. Mucous membranes moist. Neck: Trachea midline, no thyromegaly or masses palpated, and no cervical lymphadenopathy. Supple, full range of motion without nuchal rigidity, or vertebral point tenderness. Chest/axilla: Normal chest wall appearance and motion. Nontender with no deformity. No lesions are appreciated. Cardiovascular: Regular rate and rhythm with a normal S1 and S2. No gallops, murmurs, or rubs. Normal PMI, no JVD. No pulse deficits. Respiratory: Lungs have equal breath sounds bilaterally, clear to auscultation and percussion. No rales, rhonchi or wheezes noted. No increased work of breathing, no retractions or nasal flaring. Abdomen/GI: Soft, non-tender, with normal bowel sounds. No distension or tympany. No guarding or rebound. No evidence of tenderness throughout. Back: No spinal tenderness. No costovertebral tenderness. Skin: Warm, dry with normal turgor. Normal color with no rashes, no lesions, and no evidence of cellulitis. MS/ Extremity: Pulses equal, no cyanosis. Neurovascular intact. Full, normal range of motion. Positive left knee tenderness without edema, without effusion. Chronic contractures left lower extremity with brace to left lower extremity. Patient also has left arm hemiparesis with contractures. Neuro: Awake and alert, GCS 15, oriented to person, place, time, and situation. Positive left-sided hemiparesis from prior CVA. Psych: Awake, alert, with orientation to person, place and time. Behavior, mood, and affect are within normal limits Vital Signs: 21:59 BP 126 / 80; Pulse 71; Resp 18 S; Temp 97.5(O); Pulse Ox 93% on R/A; Weight 109.77 kg; as6 Height 5 ft. 9 in. (R); Pain 10/10; 23:02 BP 119 / 89; Pulse 84; Pulse Ox 95% on R/A; Pain 9/10; tm6 04/18 00:24 BP 111 / 70; Pulse 66; Pulse Ox 92% on R/A; tm6 04/17 21:59 Body Mass Index 35.74 (109.77 kg, 175.26 cm) as6 04/17 21:59 Pain Scale: Adult as6 23:02 Pain Scale: Adult tm6 MDM: 04/17 22:00 Patient medically screened. sp4 23:44 Differential diagnosis: abrasion, contusion, fracture, multiple trauma, sprain, strain. sp4 Data reviewed: vital signs, nurses notes, EMS record, radiologic studies, plain films. ED course: EXAM DESCRIPTION: RAD - Knee Left 3 View - 04/17/2023 10:19 pm CLINICAL HISTORY: L knee pain COMPARISON: No comparisons FINDINGS: Mild osteopenia. Mild tricompartmental osteoarthritis. No fracture or dislocation. No significant joint fluid.. ED course: Patient is stable for discharge home at this time with a left knee brace for the next 2-weeks. . 04/17 22:00 Order name: Knee Left 3 View XRAY; Complete Time: 23:21 sp4 Administered Medications: 22:19 Drug: [place] PO 10 mg-325 mg 1 tabs PO once Route: PO; tm6 23:50 Follow up: Response: No adverse reaction as6 22:19 Drug: Methocarbamol PO 1500 mg PO once Route: PO; tm6 23:50 Follow up: Response: No adverse reaction as6 22:19 Drug: Ibuprofen PO 400 mg PO once Route: PO; tm6 23:50 Follow up: Response: No adverse reaction as6 23:31 Drug: [place] PO 10 mg-325 mg 1 tabs PO once Route: PO; tm6 23:50 Follow up: Response: No adverse reaction as6 Disposition Summary: 04/17/23 23:48 Discharge Ordered Problem: new sp4 Symptoms: have improved sp4 Condition: Stable sp4 Diagnosis - Sprain of other specified parts of left knee sp4 - Acute left knee sprain sp4 Followup: sp4 - With: Tristan Guido MD - When: 7 - 10 days - Reason: Recheck today's complaints Discharge Instructions: - Discharge Summary Sheet sp4 - Knee Sprain, Adult, [id number] sp4 Forms: - Patient Portal Instructions sp4 Prescriptions: - Tramadol 50 mg Oral tablet - take 1 tablet ORAL route every 8 hours as needed; 20 tablet; Refills: 0, sp4 Product Selection Permitted - methocarbamol 750 mg Oral tablet - take 2 tablets ORAL route every 8 hours for 2 days; 60 tablet; Refills: 0, sp4 Product Selection Permitted Signatures: Dispatcher [employer] EDAp Gibson RN RN as6 Adam Gary MD MD sp4 Stefani Dailey, RN RN tm6
[2023-04-18 11:56] VITALS: BP 111/70; TEMP 97.5; O2SAT 92
== END ==
LOC: ER 21:56
DX: S83.8X2A Sprain of other specified parts of left knee, initial encounter (principal); I69.354 Hemiplegia and hemiparesis following cerebral infarction affecting left non-dominant side; W18.30XA Fall on same level, unspecified, initial encounter

== ENCOUNTER 2024-05-21 12:57 | Emergency (ER) | payer OTHER ==
--- NOTE | 2024-05-21 15:05 | RAD REPORT ---
EXAMINATION: Shoulder Right 2+ Views CLINICAL INDICATION: Male, 53 years old. PAIN RIGHT COMPARISON: No prior exam. FINDINGS: No acute fracture. No malalignment/dislocation. Advanced right AC joint degenerative changes. Deformity at the right lateral clavicle may be from a r emote, healed fracture. Mild right glenohumeral joint degenerative changes. Other: n/a IMPRESSION: No acute osseous abnormality.
--- NOTE | 2024-05-21 15:11 | EDPHYS ---
Physician Documentation [facility] Name: Chucky Weinberg Age: 53 yrs Sex: Male : 1970 Arrival Date: 05/21/2024 Time: 12:57 Bed DX1 Private MD: ED Physician Teo Nj HPI: 05/21 13:01 This 53 yrs old Male presents to ER via EMS with complaints of Shoulder Pain. kb 13:01 Pt is a 53 year old male who presents for right shoulder pain that started one month kb ago. States he has a torn rotator cuff and arthritis in the shoulder. Had an MRI a little over a month ago. States he fell in the tub since the MRI and has had this pain since the fall one month ago. Denies any other injuries. States he has trouble raising the arm. . Historical: - Allergies: 13:35 No Known Allergies; cm10 - PMHx: 12:58 Aneurysm; brain; CVA; Diabetes - NIDDM; Hyperlipidemia; left sided paralysis; Seizures; ll1 TIA; - Immunization history:: Adult Immunizations up to date. - Infectious Disease History:: Denies. - Social history:: Smoking status: unknown. ROS: 13:01 Constitutional: As per HPI kb Exam: 13:01 Constitutional: This is a well developed, well nourished patient who is awake, alert, kb and in no acute distress. Head/Face: Normocephalic, atraumatic. ENT: Moist Mucous membranes Cardiovascular: Regular rate Respiratory: Respirations even and unlabored. No increased work of breathing. Talking in full sentences Skin: Warm, dry with normal turgor. Normal color. Neuro: Awake and alert, GCS 15, oriented to person, place, time, and situation. 13:01 Musculoskeletal/extremity: Extremities: grossly normal except: noted in the anterior aspect of right shoulder: decreased ROM, pain, ROM: limited active range of motion, Circulation is intact in all extremities. Sensation intact. Vital Signs: 13:34 BP 129 / 93; Pulse 77; Resp 15; Temp 98.5(O); Pulse Ox 97% on R/A; Weight 109.32 kg; cm10 Height 5 ft. 9 in. ; Pain 7/10; 16:34 BP 129 / 91; Pulse 71; Resp 17; Pulse Ox 97% ; Pain 5/10; ll1 13:34 Body Mass Index 35.59 (109.32 kg, 175.26 cm) cm10 13:34 Pain Scale: Adult cm10 16:34 Pain Scale: Adult ll1 MDM: 13:00 Medical Screening Exam initiated kb 13:02 Differential diagnosis: fracture, arthritis, strain. Data reviewed: vital signs, nurses kb notes. Historians other than the Patient: EMS: [facility]. 15:09 Counseling: I had a detailed discussion with the patient and/or guardian regarding the kb historical points, exam findings, and any diagnostic results supporting the discharge/admit diagnosis, radiology results, the need for outpatient follow up, a orthopedic surgeon, to return to the emergency department if symptoms worsen or persist or if there are any questions or concerns that arise at home. 05/21 13:00 Order name: Shoulder Right (2 View) XRAY; Complete Time: 15:09 kb Administered Medications: 16:17 Drug: [place] PO 10 mg-325 mg 1 tabs PO once Route: PO; ll1 16:34 Follow up: Response: No adverse reaction; Pain is decreased; RASS: Alert and Calm (0) ll1 16:17 Drug: Ketorolac IM 30 mg IM once Route: IM; Site: left deltoid; ll1 16:34 Follow up: Response: No adverse reaction; Pain is decreased ll1 Disposition Summary: 05/21/24 15:10 Discharge Ordered Notes: Location: Home kb Condition: Stable kb Diagnosis - Pain in right shoulder kb Followup: kb - With: Emergency Department - When: As needed - Reason: Worsening of condition Followup: kb - With: Private Physician - When: 2 - 3 days - Reason: Recheck today's complaints, Continuance of care, Re-evaluation by your physician Discharge Instructions: - Discharge Summary Sheet kb - Musculoskeletal Pain kb - Shoulder Pain, [id number] kb - Arthritis, [id number] kb Forms: - Medication Reconciliation Form kb - Antibiotic Education kb - Prescription Opioid Use kb - Patient Portal Instructions kb - Leadership Thank You Letter kb Prescriptions: - Diclofenac Sodium 75 mg Oral tablet, delayed release (enteric coated) - take 1 tablet ORAL route 2 times per day As needed; 30 tablet; Refills: 0, kb Product Selection Permitted Signatures: Dispatcher [employer] Bella Gibson FNP-C FNP-Ana Deng RN RN ll1 Brenda Gómez, RN RN cm10
--- NOTE | 2024-05-21 15:11 | ER ---
Nurse's Notes [facility] Name: Chucky Weinberg Age: 53 yrs Sex: Male : 1970 Arrival Date: 05/21/2024 Time: 12:57 Bed DX1 Private MD: Diagnosis: Pain in right shoulder Presentation: 05/21 12:58 Chief complaint: Patient states: R shoulder pain is worse than usual today EMS states: ll1 [place] [facility]. Coronavirus screen: Client denies travel out of the [place] in the last 14 days. At this time, the client does not indicate any symptoms associated with coronavirus-19. Ebola Screen: Patient denies travel to an Ebola-affected area in the 21 days before illness onset. Initial Sepsis Screen: Does the patient meet any 2 criteria? No. Patient's initial sepsis screen is negative. Does the patient have a suspected source of infection? No. Patient's initial sepsis screen is negative. Risk Assessment: Do you want to hurt yourself or someone else? Patient reports no desire to harm self or others. 12:58 Method Of Arrival: EMS: [facility] 13:34 Onset of symptoms was May 21, 2024. cm10 13:34 Acuity: JAVIER 3 cm10 Triage Assessment: 13:35 General: Appears in no apparent distress. uncomfortable, Behavior is calm, cooperative. cm10 Pain: Complains of pain in anterior aspect of right shoulder Pain does not radiate. Pain currently is 7 out of 10 on a pain scale. Quality of pain is described as sharp. Neuro: No deficits noted. Level of Consciousness is awake, alert, obeys commands, Oriented to person, place, time, situation, Appropriate for age. Respiratory: No deficits noted. Airway is patent Respiratory effort is even, unlabored, Respiratory pattern is regular, symmetrical. Historical: - Allergies: 13:35 No Known Allergies; cm10 - PMHx: 12:58 Aneurysm; brain; CVA; Diabetes - NIDDM; Hyperlipidemia; left sided paralysis; Seizures; ll1 TIA; - Immunization history:: Adult Immunizations up to date. - Infectious Disease History:: Denies. - Social history:: Smoking status: unknown. Screenin:35 [facility] ED Fall Risk Assessment (Adult) History of falling in the last 3 months, ll1 including since admission No falls in past 3 months (0 pts) Confusion or Disorientation No (0 pts) Intoxicated or Sedated No (0 pts) Impaired Gait Yes (1 pt) Mobility Assist Device Used Yes (1 pt) Altered Elimination Yes (1 pt) Score/Fall Risk Level 3 or more points = High Risk Oriented to surroundings, Maintained a safe environment, Hourly rounding (assess needs \T\ fall precautionary measures) done. Abuse screen: Denies threats or abuse. Nutritional screening: No deficits noted. Tuberculosis screening: No symptoms or risk factors identified. Assessment: 16:33 Reassessment: No changes from previously documented assessment. Patient and/or family ll1 updated on plan of care and expected duration. Pain level reassessed. Patient is alert, oriented x 3, equal unlabored respirations, skin warm/dry/pink. Vital Signs: 13:34 BP 129 / 93; Pulse 77; Resp 15; Temp 98.5(O); Pulse Ox 97% on R/A; Weight 109.32 kg; cm10 Height 5 ft. 9 in. ; Pain 7/10; 16:34 BP 129 / 91; Pulse 71; Resp 17; Pulse Ox 97% ; Pain 5/10; ll1 13:34 Body Mass Index 35.59 (109.32 kg, 175.26 cm) cm10 13:34 Pain Scale: Adult cm10 16:34 Pain Scale: Adult ll1 ED Course: 12:57 Patient arrived in ED. ll1 12:58 Arm band placed on. ll1 13:00 Bella Gamboa [facility]C [facility] kb 13:00 Teo Nj MD is Attending Physician. kb 13:35 Triage completed. cm10 14:55 Shoulder Right (2 View) XRAY In Process Unspecified. EDMS 16:35 No provider procedures requiring assistance completed. Patient did not have IV access ll1 during this emergency room visit. 16:36 Patient has correct armband on for positive identification. Provided Education on: ll1 return to ED for worsening symptoms. Administered Medications: 16:17 Drug: [place] PO 10 mg-325 mg 1 tabs PO once Route: PO; ll1 16:34 Follow up: Response: No adverse reaction; Pain is decreased; RASS: Alert and Calm (0) ll1 16:17 Drug: Ketorolac IM 30 mg IM once Route: IM; Site: left deltoid; ll1 16:34 Follow up: Response: No adverse reaction; Pain is decreased ll1 Medication: 16:36 VIS not applicable for this client. ll1 Outcome: 15:10 Discharge ordered by . kb 16:29 Patient left the ED. ll1 16:35 Discharged to home via wheelchair, ll1 16:35 Condition: stable 16:35 Discharge instructions given to patient, Instructed on discharge instructions, follow up and referral plans. medication usage, Demonstrated understanding of instructions, follow-up care, medications, Prescriptions given X 1, Signatures: Dispatcher [employer] Bella Gibson, RESOLUTION SPECIALIST-C Ana Price RN RN ll1 Brenda Gómez RN RN cm10
[2024-05-21] MEDS ORDERED: HYDROCODONE/APAP 10/325 TAB ONE (16:10)
[2024-05-21] MEDS ORDERED: KETOROLAC 30 MG/ML INJ ONE (16:10)
[2024-05-21 16:42] VITALS: BP 129/93; TEMP 98.5; O2SAT 97
== END 2024-05-21 16:29 | disposition home or self-care (01) ==
LOC: ER 12:57
DX: M25.511 Pain in right shoulder (principal)

== ENCOUNTER 2024-06-01 16:36 | Emergency (ER) | payer OTHER ==
--- NOTE | 2024-06-01 18:36 | RAD REPORT ---
EXAMINATION: XR PELVIS CLINICAL INDICATION: Male, 53 years old. PAIN TECHNIQUE: AP Pelvis radiograph was obtained. COMPARISON: No prior exam. FINDINGS: No evidence of fracture or dislocation. Normal alignment. No evidence of AVN. Soft tissues are unremarkable. ASSISTANT FINANCIAL ACCOUNTANT shunt in place. IMPRESSION: No acute or significant abnormalities.
--- NOTE | 2024-06-01 18:50 | RAD REPORT ---
EXAMINATION: Hip Left 2 View CLINICAL INDICATION: Male, 53 years old. [facility] MAIN DEFORMITY Bed Name: 20 TECHNIQUE: 2 view radiograph of the left hip were obtained. COMPARISON: 10/31/2017 FINDINGS: No evidence of fracture or dislocation. Normal alignment. Mild hip degenerative changes. No other focal bone lesion. Soft tissues are unremarkable. IMPRESSION: No acute osseous abnormalities. Mild degenerative changes..
--- NOTE | 2024-06-01 18:57 | RAD REPORT ---
EXAM: CT CHEST, ABDOMEN AND PELVIS WITHOUT CONTRAST CLINICAL INDICATION: Male, 53 years old. [facility] MAIN FALL ABD PAIN;Chest pain TECHNIQUE: CT chest, abdomen and pelvis was performed, without IV contrast, as per department protoco l. Axial, sagittal and coronal reconstructions were obtained. One or more of the following dose reduction techniques were used: Automated exposure control, adjustment of the mA and/or kV according to the patient size, and/or iterative reconstruction. Unless otherwise specified, incidental findings do not require dedicated imaging follow-up. COMPARISON: No prior exam. FINDINGS: The lack of intravenous contrast limits the sensitivity of this exam for evaluation of solid visceral organs, vascular structures, and retroperitoneum. Chest: LOWER NECK/CHEST WALL: Visualized thyroid gland and soft tissues are normal. LUNGS AND AIRWAYS: Airways are clear. No evidence of airspace or interstitial process. No nodules. PLEURA: No pleural effusion. No pneumothorax. Hemidiaphragms are normally positioned. MEDIASTINUM AND LYMPH NODES: No mediastinal mass or fluid collection. Normal size mediastinal, hilar, and axillary lymph nodes. THORACIC AORTA: Normal caliber and configuration. PULMONARY ARTERIES: Normal caliber. HEART: Unremarkable. Abdomen/Pelvis LIVER: Normal in size and contour. No focal lesion. GALLBLADDER/BILE DUCTS: Decompressed gallbladder limiting evaluation. No biliary ductal dilatation. PANCREAS: No mass, ductal dilation, or dionne-pancreatic fluid. SPLEEN: Normal size. No focal lesion. ADRENALS: Normal; no mass. KIDNEYS AND URETERS: Normal size and contour. No hydronephrosis. Masses or calcifications. Left lower pole 9 mm calculus. Right upper to midpole 1-2 mm calculus. GASTROINTESTINAL TRACT: Stomach is moderately dilated. Fluid opacification of the proximal colon with air-fluid levels. Small bowel has normal course and caliber. No colonic wall thickening or pericolonic inflammatory changes. PERITONEUM: No free fluid. LYMPH NODES: No lymphadenopathy. ABDOMINAL AORTA AND OTHER VESSELS: Normal caliber aorta and IVC. URINARY BLADDER: Normal contour. REPRODUCTIVE ORGANS: No pathologic process. MUSCULOSKELETAL: Nondisplaced left first, second, and third lumbar transverse process fractures.. Non displaced posterior left 10th rib fracture. Multiple left lateral rib deformities may relate to more remote rib fractures. ADDITIONAL FINDINGS: RESOURCE CONSERVATION SPECIALIST shunt catheter in place. Right lower quadrant pain pump battery pack. IMPRESSION: Nondisplaced left first, second, and third lumbar vertebrae transverse process fractures. Nondisplace d posterior left 10th rib fracture, likely acute. Multiple other left lateral rib deformities may relate to more remote fractures. Nonobstructing bilateral renal calculi up to 9 mm on the left. Moderate gastric fluid distention. Fluid opacification of the proximal colon. Findings may relate to diarrheal state.
[2024-06-01] MEDS ORDERED: KETOROLAC 30 MG/ML INJ ONE (19:02)
--- NOTE | 2024-06-01 19:12 | EDPHYS ---
Physician Documentation [facility] Name: Chucky Weinberg Age: 53 yrs Sex: Male : 1970 Arrival Date: 06/01/2024 Time: 16:36 Bed 20 Private MD: ED Physician Santino Solorzano HPI: 06/01 16:43 This 53 yrs old Male presents to ER via Unassigned with complaints of Hip bo1 Pain, Fall Injury. 18:17 The patient or guardian reports pain, Fell on Sunday. that occurred at home, In the bo1 bathroom. The complaints affect the abdomen and chest and left hip. Onset: The symptoms/episode began/occurred suddenly, 2 day(s) ago. Modifying factors: The symptoms are alleviated by nothing, the symptoms are aggravated by any movement. The patient has been recently seen by a physician: 2 day(s) ago, with different complaint(s), X-rays were performed, Xrays on the right side at [facility]. Not better. Pain the left ribs and abd. Flank and left hip.. Historical: - Allergies: 16:46 No Known Allergies; kc6 - PMHx: 16:46 TIA; Seizures; left sided paralysis; Hyperlipidemia; Diabetes - NIDDM; CVA; Aneurysm; kc6 brain; - Immunization history:: Adult Immunizations not up to date. - Infectious Disease History:: Denies. - Social history:: Smoking status: Patient denies any tobacco usage or history of. Patient uses Marijuana. ROS: 18:19 Constitutional: Negative for fever, chills, and weight loss bo1 18:19 Neck: Negative for mass, pain with movement, pain at rest, 18:19 Cardiovascular: Negative for chest pain, 18:19 Respiratory: Negative for cough, shortness of breath, 18:19 Abdomen/GI: Positive for abdominal pain, 18:19 Back: Positive for flank pain, 18:19 MS/extremity: Positive for pain, of the pelvis and left hip, 18:19 All other systems are negative, Exam: 18:21 Constitutional: This is a well developed, well nourished patient who is awake, alert, bo1 and in no acute distress. 18:21 Constitutional: The patient appears alert, awake, comfortable, non-toxic, in obvious distress, Left sided paralysis, LLE in a brace (pyle to foot). 18:21 Neck: External neck: is normal, no acute changes, 18:21 Cardiovascular: Rate: normal, Pulses: no pulse deficits are appreciated, 18:21 Respiratory: the patient does not display signs of respiratory distress, Breath sounds: are clear throughout, 18:21 Abdomen/GI: Inspection: abdomen appears normal, bruising, is not seen, Palpation: soft, rebound tenderness, is not appreciated, 18:21 Musculoskeletal/extremity: Extremities: grossly normal except: noted in the left hip: decreased ROM, No shortening of the left but left hip is extended. Right hip appears normal and flexed, 18:23 Skin: injury, is not appreciated, no rash present. bo1 18:23 Neuro: Orientation: is normal, Mentation: is normal, Weakness on the left side. Left sided paralysis apparent, Vital Signs: 16:44 Weight 109.32 kg (R); Height 5 ft. 9 in. (R); kc6 17:12 BP 122 / 94; Pulse 86; Resp 18 S; Temp 98(O); Pulse Ox 97% on R/A; kc6 18:22 BP 133 / 84; Pulse 85; Resp 18 S; Pulse Ox 99% on R/A; kc6 19:14 BP 132 / 75; Pulse 82; Resp 17; Temp 98; Pulse Ox 99% on R/A; Pain 7/10; rg5 16:44 Body Mass Index 35.59 (109.32 kg, 175.26 cm) kc6 19:14 Pain Scale: Adult rg5 MDM: 16:43 Medical Screening Exam initiated bo1 18:20 Differential diagnosis: femoral neck fracture. Data reviewed: vital signs, radiologic bo1 studies, CT scan, plain films. 19:08 Consideration of Admission/Observation No criteria for acute hospitalization but pain bo1 mgmt will be a challenge. ED course: CT reports suggest three transverse spine fxs to the L1, 2 and 3 vertebrae; also left 10th rib ND fx. 19:09 Data reviewed: radiologic studies. bo1 19:10 Data reviewed: radiologic studies, CT scan. bo1 06/01 17:47 Order name: Pelvis XRAY; Complete Time: 18:59 bo1 06/01 18:12 Order name: Hip Left 2 View XRAY; Complete Time: 18:59 bo1 06/01 18:16 Order name: CT Chest Abdomen Pelvis W/O Contrast; Complete Time: 18:59 bo1 Administered Medications: 19:10 Drug: Ketorolac IM 60 mg IM once Route: IM; Site: right deltoid; rg5 19:25 Follow up: Response: No adverse reaction; Pain is decreased rg5 Disposition Summary: 06/01/24 19:11 Discharge Ordered Notes: Location: Home bo1 Problem: new bo1 Symptoms: have improved bo1 Condition: Stable bo1 Diagnosis - Fall on same level, unspecified bo1 - Fracture of one rib, left side bo1 - Fracture of lumbar vertebra bo1 - Other fracture of unspecified lumbar vertebra bo1 Followup: bo1 - With: Private Physician - When: Upon discharge from the Emergency Department - Reason: Recheck today's complaints, Continuance of care Discharge Instructions: - Discharge Summary Sheet bo1 - Lumbar Spine Fracture bo1 - Fall Prevention in the Home, Adult, [id number] bo1 - Rib Fracture, [id number] bo1 Forms: - Medication Reconciliation Form bo1 - Antibiotic Education bo1 - Prescription Opioid Use bo1 - Patient Portal Instructions bo1 - Leadership Thank You Letter bo1 Prescriptions: - Tramadol 50 mg Oral tablet - take 1 tablet ORAL route every 8 hours as needed; 20 tablet; Refills: 0, bo1 Product Selection Permitted Signatures: Dispatcher [employer] Radha Caballero, LUCAS RN kc6 Santino Solorzano MD MD bo1 Trung Shabazz RN RN rg5 Corrections: (The following items were deleted from the chart) 18:16 18:16 Chest Abdomen Pelvis Wo Con+CT.RAD.BRZ ordered. EDMS EDMS
--- NOTE | 2024-06-01 19:12 | ER ---
Nurse's Notes [facility] Name: Chucky Weinberg Age: 53 yrs Sex: Male : 1970 Arrival Date: 06/01/2024 Time: 16:36 Bed 20 Private MD: Diagnosis: Fall on same level, unspecified;Fracture of one rib, left side;Fracture of lumbar vertebra;Other fracture of unspecified lumbar vertebra Presentation: 06/01 16:44 Chief complaint: EMS states: they were toned out for left rib/hip pain s/p fall x2 days kc6 ago with n/v this AM. pt was seen at [facility] at that time and imaging was negative. Coronavirus screen: At this time, the client does not indicate any symptoms associated with coronavirus-19. Ebola Screen: No symptoms or risks identified at this time. Initial Sepsis Screen: Does the patient meet any 2 criteria? No. Patient's initial sepsis screen is negative. Does the patient have a suspected source of infection? No. Patient's initial sepsis screen is negative. Risk Assessment: Do you want to hurt yourself or someone else? Patient reports no desire to harm self or others. Onset of symptoms was June 01, 2024. 16:44 Method Of Arrival: EMS: [facility] kc6 16:44 Acuity: JAVIER 3 kc6 Historical: - Allergies: 16:46 No Known Allergies; kc6 - PMHx: 16:46 TIA; Seizures; left sided paralysis; Hyperlipidemia; Diabetes - NIDDM; CVA; Aneurysm; kc6 brain; - Immunization history:: Adult Immunizations not up to date. - Infectious Disease History:: Denies. - Social history:: Smoking status: Patient denies any tobacco usage or history of. Patient uses Marijuana. Screenin:47 [facility] ED Fall Risk Assessment (Adult) History of falling in the last 3 months, kc6 including since admission Yes- single mechanical fall (1 pt) Confusion or Disorientation No (0 pts) Intoxicated or Sedated No (0 pts) Impaired Gait Yes (1 pt) Mobility Assist Device Used Yes (1 pt) Altered Elimination No (0 pt) Score/Fall Risk Level 3 or more points = High Risk Oriented to surroundings, Maintained a safe environment, Educated pt \T\ family on fall prevention, incl call for assistance when getting out of bed. Abuse screen: Denies threats or abuse. Denies injuries from another. Nutritional screening: No deficits noted. Tuberculosis screening: No symptoms or risk factors identified. Assessment: 17:02 General: Appears in no apparent distress. comfortable, unkempt, well developed, kc6 Behavior is calm, cooperative, appropriate for age. Pain: Complains of pain in left lateral anterior chest and left hip. Neuro: Level of Consciousness is awake, alert, obeys commands, Oriented to person, place, time, situation, Appropriate for age. Cardiovascular: Capillary refill < 3 seconds. Respiratory: Airway is patent Trachea midline Respiratory effort is even, unlabored, Respiratory pattern is regular, symmetrical. GI: Abdomen is round non-distended, Reports nausea, vomiting, Patient currently denies abdominal pain, diarrhea. : No signs and/or symptoms were reported regarding the genitourinary system. EENT: No signs and/or symptoms were reported regarding the EENT system. Derm: No signs and/or symptoms reported regarding the dermatologic system. Skin is intact, is healthy with good turgor, Skin is pink, warm \T\ dry. Musculoskeletal: No signs and/or symptoms reported regarding the musculoskeletal system. Circulation, motion, and sensation intact. Range of motion: intact in all extremities. 18:22 Reassessment: Patient appears in no apparent distress at this time. No changes from kc6 previously documented assessment. Patient and/or family updated on plan of care and expected duration. Pain level reassessed. Patient is alert, oriented x 3, equal unlabored respirations, skin warm/dry/pink. 19:12 General: Appears in no apparent distress. comfortable, Behavior is calm, cooperative, rg5 appropriate for age. Pain: Complains of pain in left hip Pain currently is 7 out of 10 on a pain scale. Quality of pain is described as aching. Neuro: Level of Consciousness is awake, alert, obeys commands, Oriented to person, place, time, situation, Appropriate for age. Cardiovascular: Capillary refill < 3 seconds. Respiratory: Airway is patent Trachea midline Respiratory effort is even, unlabored, Respiratory pattern is regular, symmetrical. GI: Abdomen is round non-distended. : No signs and/or symptoms were reported regarding the genitourinary system. EENT: No deficits noted. Derm: Skin is intact, is healthy with good turgor, Skin is dry, Skin is normal. Musculoskeletal: Circulation, motion, and sensation intact. Range of motion: intact in all extremities. Vital Signs: 16:44 Weight 109.32 kg (R); Height 5 ft. 9 in. (R); kc6 17:12 BP 122 / 94; Pulse 86; Resp 18 S; Temp 98(O); Pulse Ox 97% on R/A; kc6 18:22 BP 133 / 84; Pulse 85; Resp 18 S; Pulse Ox 99% on R/A; kc6 19:14 BP 132 / 75; Pulse 82; Resp 17; Temp 98; Pulse Ox 99% on R/A; Pain 7/10; rg5 16:44 Body Mass Index 35.59 (109.32 kg, 175.26 cm) kc6 19:14 Pain Scale: Adult rg5 ED Course: 16:41 Patient arrived in ED. kc6 16:43 Santino Solorzano MD is Attending Physician. bo1 16:43 Radha Martínez, LUCAS is Primary Nurse. kc6 16:46 Triage completed. kc6 16:46 Arm band placed on. kc6 16:46 Patient has correct armband on for positive identification. Bed in low position. Call kc6 light in reach. Side rails up X2. Pulse ox on. NIBP on. Door closed. Noise minimized. Lights dimmed. Warm blanket given. Pillow given. Verbal reassurance given. 16:47 Patient maintains SpO2 saturation greater than 95% on room air. kc6 18:24 Pelvis XRAY In Process Unspecified. EDMS 18:24 Hip Left 2 View XRAY In Process Unspecified. EDMS 18:44 CT Chest Abdomen Pelvis W/O Contrast In Process Unspecified. EDMS 18:54 Patient requests pain medication. kc6 19:15 Provided Education on: post er care. rg5 19:15 No provider procedures requiring assistance completed. rg5 19:15 Patient did not have IV access during this emergency room visit. rg5 Administered Medications: 19:10 Drug: Ketorolac IM 60 mg IM once Route: IM; Site: right deltoid; rg5 19:25 Follow up: Response: No adverse reaction; Pain is decreased rg5 Medication: 19:12 VIS not applicable for this client. rg5 Outcome: 19:11 Discharge ordered by . bo1 19:24 Discharged to home via wheelchair, rg5 19:24 Condition: stable 19:24 Discharge instructions given to patient, Instructed on discharge instructions, follow up and referral plans. Demonstrated understanding of instructions, follow-up care, medications, Prescriptions given X 1, 19:35 Patient left the ED. rg5 Signatures: Dispatcher [employer] Radha Caballero, RN RN kc6 Santino Solorzano MD MD bo1 Trung Shabazz RN RN rg5
[2024-06-01 19:39] VITALS: TEMP 98
[2024-06-01 19:40] VITALS: O2SAT 99
[2024-06-01 19:41] VITALS: BP 132/75
== END 2024-06-01 19:35 | disposition home or self-care (01) ==
LOC: ER 16:36
DX: S22.32XA Fracture of one rib, left side, initial encounter for closed fracture (principal); S32.019A Unspecified fracture of first lumbar vertebra, initial encounter for closed fracture; S32.029A Unspecified fracture of second lumbar vertebra, initial encounter for closed fracture; S32.039A Unspecified fracture of third lumbar vertebra, initial encounter for closed fracture; W18.30XA Fall on same level, unspecified, initial encounter; Y92.002 Bathroom of unspecified non-institutional (private) residence as the place of occurrence of the external cause
CPT/HCPCS: 71250; 72170; 74176; 96372; 99284

== ENCOUNTER 2024-12-31 13:02 | Observation (INO) | payer OTHER ==
--- NOTE | 2024-12-31 14:50 | RAD REPORT ---
EXAMINATION: US Extrem Venous W Compress Boom CLINICAL INDICATION: [facility] MAIN SWELLING Bed Name: 8 Y TECHNIQUE: Complete bilateral duplex sonography of the BILATERAL lower extremity veins was performed. The examination included compression for vein patency, color Doppler imaging and flow augmentation in response to distal compression of the distal external iliac, common femoral, femoral, popliteal, t ibial, and great and small saphenous veins. COMPARISON: 10/01/2023 FINDINGS: Duplex sonography testing of the veins of the BILATERAL lower extremity was performed. Color flow remington ging shows all veins to be compressible with [id number] color filling. Pulsatile and phasic flow is present within all lower extremity deep and superficial veins examined. IMPRESSION: There is no deep vein or superficial vein thrombosis.
[2024-12-31] MEDS ORDERED: ACETAMINOPHEN 500 MG TAB ONE (15:03)
[2024-12-31 16:10] LABS: Anion Gap 10.4 mEq/L (5.0-15.0); BUN Blood Urea Nitrogen 13.0 mg/dL (7-18); Glucose Level 136.0 mg/dL (74-106); Potassium 4.4 mEq/L (3.5-5.1)
[2024-12-31 16:21] LABS: Absolute Lymphocytes (CBC) 3.4 K/uL (0.7-4.9); Hematocrit 39.5 % (39.6-49.0); Hemoglobin 12.6 g/dL (13.6-17.9); MCH 24.0 pg (27.0-35.0); MCHC 32.0 g/dL (32.0-36.0); MCV 74.9 fL (80-100); MPV 8.7 fL (7.6-11.3); Nucleated RBC Absolute Count 0.0 (0-0); Nucleated Red Blood Cells % 0.3 % (0-0); RBC Red Blood Cell Count 5.27 M/uL (4.33-5.43); White Blood Count 14.50 thou/uL (4.3-10.9)
--- NOTE | 2024-12-31 16:35 | RAD REPORT ---
EXAMINATION: ONE VIEW CHEST XR CLINICAL INDICATION: Male, 54 years old.,SWELLING TECHNIQUE: Frontal chest projection is submitted. Examination is limited by patient positioning and t echnique. COMPARISON: 11/29/2022 FINDINGS: The lungs are grossly clear although suboptimal inspiratory effort somewhat limits evaluation. REPAIR SERVICE DISPATCHER renetta nt catheter crosses the midline towards the left base of neck. No pneumothorax or sizable effusion. The heart is normal in size. Mediastinal contours are unremarkable. IMPRESSION: No acute intrathoracic abnormalities.
--- NOTE | 2024-12-31 16:55 | ER ---
Nurse's Notes [facility] Name: Chucky Weinberg Age: 54 yrs Sex: Male : 1970 Arrival Date: 12/31/2024 Time: 13:02 Bed 6 Private MD: Diagnosis: Cellulitis of left lower limb Presentation: 12/31 13:15 Chief complaint: EMS states: LEFT LEG SWELLING AROUND LEG BRACE STARTED TODAY 0400. db STATES WEARS DUE TO PREVIOUS BRAIN ANEURYSM. HAS NEUROPATHY UNABLE TO FEEL IF THERE IS PAIN. PT NOTED OOZING FROM THE WOUND TODAY. Coronavirus screen: Client denies travel out of the [place] in the last 14 days. At this time, the client does not indicate any symptoms associated with coronavirus-19. Ebola Screen: Patient negative for fever greater than or equal to 101.5 degrees Fahrenheit, and additional compatible Ebola Virus Disease symptoms Patient denies exposure to infectious person. Patient denies travel to an Ebola-affected area in the 21 days before illness onset. No symptoms or risks identified at this time. Initial Sepsis Screen: Does the patient meet any 2 criteria? No. Patient's initial sepsis screen is negative. Does the patient have a suspected source of infection? No. Patient's initial sepsis screen is negative. Risk Assessment: Do you want to hurt yourself or someone else? Patient reports no desire to harm self or others. Onset of symptoms was December 31, 2024. 13:15 Method Of Arrival: EMS: [facility] db 13:15 Acuity: JAVIER 3 db Triage Assessment: 13:23 General: Appears in no apparent distress. comfortable, Behavior is calm, cooperative. db Pain: Complains of pain in left leg. Neuro: Level of Consciousness is awake, alert, obeys commands, Oriented to person, place, time, situation. Historical: - Allergies: 13:23 No Known Allergies; db - PMHx: 13:23 Aneurysm; brain; Diabetes - NIDDM; Hyperlipidemia; left sided paralysis; CVA; Seizures; db TIA; - PSHx: 19:30 baclofen pump insertion; nh2 - Immunization history:: Adult Immunizations unknown. - Infectious Disease History:: Denies. - Social history:: Smoking status: Patient denies any tobacco usage or history of. Screenin:57 [facility] ED Fall Risk Assessment (Adult) History of falling in the last 3 months, db including since admission No falls in past 3 months (0 pts) Confusion or Disorientation No (0 pts) Intoxicated or Sedated No (0 pts) Impaired Gait Yes (1 pt) Mobility Assist Device Used Yes (1 pt) Altered Elimination No (0 pt) Score/Fall Risk Level 0 - 2 = Low Risk Oriented to surroundings, Maintained a safe environment. Abuse screen: Denies threats or abuse. Denies injuries from another. Nutritional screening: No deficits noted. Tuberculosis screening: No symptoms or risk factors identified. Assessment: 13:51 Reassessment: Pt taken to US. ph 15:22 Reassessment: Patient appears in no apparent distress at this time. Patient and/or db family updated on plan of care and expected duration. Pain level reassessed. Patient is alert, oriented x 3, equal unlabored respirations, skin warm/dry/pink. General: Appears in no apparent distress. comfortable, Behavior is calm, cooperative. Neuro: Level of Consciousness is awake, alert, obeys commands, Oriented to person, place, time, situation. Respiratory: Airway is patent Respiratory effort is even, unlabored, Respiratory pattern is regular, symmetrical. 16:00 Reassessment: Patient appears in no apparent distress at this time. Patient and/or db family updated on plan of care and expected duration. Pain level reassessed. Patient is alert, oriented x 3, equal unlabored respirations, skin warm/dry/pink. ANOTHER STAFF MEMBER ATTEMPTED IV ACCESS AND BLOOD COLLECTION. UNSUCCESSFUL. NOTIFIED PROVIDER RUFINA OF DIFFICULTY OBTAINING IV ACCESS AND LABS. 17:05 Reassessment: Patient appears in no apparent distress at this time. Patient and/or db family updated on plan of care and expected duration. Pain level reassessed. Patient is alert, oriented x 3, equal unlabored respirations, skin warm/dry/pink. 17:52 Reassessment: Patient appears in no apparent distress at this time. Patient and/or db family updated on plan of care and expected duration. Pain level reassessed. Patient is alert, oriented x 3, equal unlabored respirations, skin warm/dry/pink. 19:30 Reassessment: Patient and/or family updated on plan of care and expected duration. Pain nh2 level reassessed. 19:30 General: Appears in no apparent distress. Behavior is calm, cooperative. Pain: Denies nh2 pain. Neuro: Level of Consciousness is awake, alert, obeys commands, Oriented to person, place, time, situation. Cardiovascular: Denies chest pain, Patient's skin is warm and dry. Respiratory: Respiratory effort is even, unlabored, Breath sounds are clear bilaterally. Denies shortness of breath. GI: Abdomen is round obese, Bowel sounds present X 4 quads. Abd is soft and non tender X 4 quads. Patient currently denies diarrhea, nausea, vomiting, baclofen pump to the RLQ. : No signs and/or symptoms were reported regarding the genitourinary system. Denies burning with urination. EENT: No signs and/or symptoms were reported regarding the EENT system. Derm: Skin is erythema present to the left leg Skin temperature is warm left leg skin abrasion to the left leg behind thigh, dime-sized, circular, and bright pink in color. reports that it may be from the leg brace rubbing against his skin Reports increased swelling in the left leg. 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 19:30 Musculoskeletal: Range of motion: limited in left arm. nh2 19:30 Derm: small circular, black tissue present on L leg below knee. nh2 19:50 Reassessment: pt sitting in bed comfortable, eating food and watching tv. denies pain nh2 or concerns, call light placed within arms reach. 20:50 Reassessment: Patient and/or family updated on plan of care and expected duration. Pain nh2 level reassessed. Patient is alert, oriented x 3, equal unlabored respirations, skin warm/dry/pink. 21:50 Reassessment: Patient and/or family updated on plan of care and expected duration. Pain nh2 level reassessed. Patient is alert, oriented x 3, equal unlabored respirations, skin warm/dry/pink. Patient denies pain at this time. Vital Signs: 13:15 BP 126 / 69; Pulse 83; Resp 16; Temp 98.1; Pulse Ox 95% ; Weight 109.77 kg; Height 5 db ft. 9 in. ; 15:20 BP 121 / 80; Pulse 82; Resp 16; Pulse Ox 95% ; db 17:36 BP 142 / 80; Pulse 63; Resp 18; Pulse Ox 96% on R/A; db 19:34 BP 103 / 86; Pulse 75; Resp 11; Temp 98.1; Pulse Ox 98% ; Pain 4/10; bm8 20:09 BP 143 / 83; Pulse 99; Resp 18; Temp 98.1; Pulse Ox 95% ; Pain 0/10; bm8 21:02 BP 146 / 84; Pulse 62; Resp 18; Pulse Ox 98% on R/A; nh2 22:00 BP 147 / 78; Pulse 65; Resp 18; Pulse Ox 97% on R/A; nh2 13:15 Body Mass Index 35.74 (109.77 kg, 175.26 cm) db 19:34 Pain Scale: Adult bm8 20:09 Pain Scale: Adult bm8 ED Course: 13:15 Patient arrived in ED. db 13:21 Bella Gamboa FNP-C is PHCP. kb 13:21 Teo Nj MD is Attending Physician. kb 13:23 Triage completed. db 13:23 Arm band placed on Patient placed in an exam room. db 14:24 US Extremity Venous W Compression Boom In Process Unspecified. EDMS 15:15 Chest Single View XRAY In Process Unspecified. EDMS 15:18 Stephanie Cueto, RN is Primary Nurse. db 15:22 Patient has correct armband on for positive identification. Bed in low position. Call db light in reach. Side rails up X 1. Pulse ox on. NIBP on. Warm blanket given. Pillow given. 15:22 Missed attempt(s): 22 gauge in right antecubital area. Bleeding controlled, band aid db applied, catheter tip intact. 15:40 Initial lab(s) drawn, sent to lab. Missed attempt(s): 22 gauge in right hand. Bleeding db controlled, band aid applied, catheter tip intact. 16:05 Missed attempt(s): 22 gauge in left antecubital area. Bleeding controlled, band aid ll1 applied, catheter tip intact. 16:55 Jarrod Knight is Hospitalizing Provider. kb 17:22 No provider procedures requiring assistance completed. Inserted saline lock: 20 gauge db in right antecubital area, using aseptic technique. Blood collected. Flushed with 10 mL NS ULTRASOUND IV PLACED BY ED STAFF. 19:30 Provided Education on: using call light for assistance. nh2 20:16 Primary Nurse role handed off by Stephanie Cueto, LUCAS nh2 20:16 Ti Rutherford Jr, RN is Primary Nurse. nh2 22:24 Patient admitted, IV remains in place. nh2 Administered Medications: 15:12 Drug: Acetaminophen PO 1000 mg PO once Route: PO; db 17:52 Follow up: Response: No adverse reaction db 17:40 Drug: vancoMYCIN IVPB 1 grams IVPB once over 2 hrs Route: IVPB; Infused Over: 2 hrs; db Site: right antecubital; 22:24 Follow up: Response: No adverse reaction; IV Status: Completed infusion nh2 Medication: 17:05 VIS not applicable for this client. db Outcome: 16:55 Decision to Hospitalize by Provider. kb 22:24 Admitted to Med/surg accompanied by tech, via stretcher, room 210, nh2 22:24 Condition: stable 22:24 Instructed on follow up and referral plans. the need for admit, Demonstrated understanding of follow-up care, medications, 22:26 Patient left the ED. nh2 Signatures: Dispatcher [employer] EDMS Bella Gamboa, SECTION GANG-C JULIANNA-Manda Roldan RN RN Ana Villarreal RN RN ll1 Stephanie Cueto RN RN db Junito Christian, LUCAS RN bm8 Ti Rutherford Jr, LUCAS RN nh2 Corrections: (The following items were deleted from the chart) 17:51 17:22 Inserted saline lock: 20 gauge in right antecubital area, using aseptic db technique. Blood collected. Flushed with 10 mL NS ULTRASOUND IV db 20:04 19:30 Musculoskeletal: Circulation, motion, and sensation intact. Range of motion: nh2 limited in left arm nh2 20:06 19:30 Derm: Skin is erythema present to the left leg Skin temperature is warm left leg nh2 Wound noted posterior suface of left thigh Wound is light pink, dime-sized, circular beginning stages of wound. states it may be a result of friction from leg brace rubbing against skin Reports increased swelling in the left leg. 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
--- NOTE | 2024-12-31 16:55 | EDPHYS ---
Physician Documentation [facility] Name: Chucky Weinberg Age: 54 yrs Sex: Male : 1970 Arrival Date: 12/31/2024 Time: 13:02 Bed 6 Private MD: ED Physician Teo Nj HPI: 12/31 17:20 This 54 yrs old Male presents to ER via EMS with complaints of Leg Swelling. kb 17:20 Patient is a 54-year-old male who presents for redness, swelling and wound with kb drainage to left lower leg. States he noticed it this morning. Patient has neuropathy and cannot feel pain to the lower extremity. Denies fever.. Historical: - Allergies: 13:23 No Known Allergies; db - PMHx: 13:23 Aneurysm; brain; Diabetes - NIDDM; Hyperlipidemia; left sided paralysis; CVA; Seizures; db TIA; - PSHx: 19:30 baclofen pump insertion; nh2 - Immunization history:: Adult Immunizations unknown. - Infectious Disease History:: Denies. - Social history:: Smoking status: Patient denies any tobacco usage or history of. ROS: 17:20 Constitutional: As per HPI kb Exam: 17:20 Constitutional: This is a well developed, well nourished patient who is awake, alert, kb and in no acute distress. Head/Face: Normocephalic, atraumatic. ENT: Moist Mucous membranes Cardiovascular: Regular rate Respiratory: Respirations even and unlabored. No increased work of breathing. Talking in full sentences Neuro: Awake and alert, GCS 15, oriented to person, place, time, and situation. 17:20 Skin: cellulitis, that is moderate, on the left leg, Vital Signs: 13:15 BP 126 / 69; Pulse 83; Resp 16; Temp 98.1; Pulse Ox 95% ; Weight 109.77 kg; Height 5 db ft. 9 in. ; 15:20 BP 121 / 80; Pulse 82; Resp 16; Pulse Ox 95% ; db 17:36 BP 142 / 80; Pulse 63; Resp 18; Pulse Ox 96% on R/A; db 19:34 BP 103 / 86; Pulse 75; Resp 11; Temp 98.1; Pulse Ox 98% ; Pain 4/10; bm8 20:09 BP 143 / 83; Pulse 99; Resp 18; Temp 98.1; Pulse Ox 95% ; Pain 0/10; bm8 21:02 BP 146 / 84; Pulse 62; Resp 18; Pulse Ox 98% on R/A; nh2 22:00 BP 147 / 78; Pulse 65; Resp 18; Pulse Ox 97% on R/A; nh2 13:15 Body Mass Index 35.74 (109.77 kg, 175.26 cm) db 19:34 Pain Scale: Adult bm8 20:09 Pain Scale: Adult bm8 MDM: 13:21 Medical Screening Exam initiated kb 17:20 Differential diagnosis: abscess, allergic reaction, cellulitis. Data reviewed: vital kb signs, nurses notes. Consideration of Admission/Observation Patient was admitted/placed on observation. Escalation of care including admission/observation considered. Management of patient was discussed with the following: Hospitalist: Hospitalist team, pt accepted for admission under Dr Knight. Counseling: I had a detailed discussion with the patient and/or guardian regarding the historical points, exam findings, and any diagnostic results supporting the discharge/admit diagnosis, lab results, radiology results, the need for further work-up and treatment in the hospital. 12/31 13:27 Order name: CBC with Diff; Complete Time: 17:04 kb 12/31 13:27 Order name: BMP; Complete Time: 16:11 kb 12/31 16:52 Order name: Blood Culture Adult (2) kb 12/31 16:52 Order name: Lactate w/ 2H reflex if indic.; Complete Time: 17:51 kb 12/31 16:52 Order name: Protime (+inr); Complete Time: 17:46 kb 12/31 16:52 Order name: Ptt, Activated; Complete Time: 17:46 kb 12/31 16:52 Order name: LFT's; Complete Time: 17:54 kb 12/31 17:03 Order name: CBC Smear Scan; Complete Time: 17:04 EDMS 12/31 21:27 Order name: CBC with Automated Diff EDMS 12/31 21:27 Order name: CBC with Automated Diff EDMS 12/31 20:27 Order name: CBC with Automated Diff EDMS 12/31 21:27 Order name: Comprehensive Metabolic Panel EDMS 12/31 21:27 Order name: Comprehensive Metabolic Panel EDMS 12/31 21:27 Order name: Comprehensive Metabolic Panel EDMS 12/31 21:27 Order name: Magnesium EDMS 12/31 21:27 Order name: Magnesium EDMS 12/31 21:27 Order name: Magnesium EDMS 12/31 13:27 Order name: US Extremity Venous W Compression Boom; Complete Time: 14:54 kb 12/31 13:27 Order name: Chest Single View XRAY; Complete Time: 16:36 kb 12/31 13:27 Order name: IV Start; Complete Time: 17:27 kb Administered Medications: 15:12 Drug: Acetaminophen PO 1000 mg PO once Route: PO; db 17:52 Follow up: Response: No adverse reaction db 17:40 Drug: vancoMYCIN IVPB 1 grams IVPB once over 2 hrs Route: IVPB; Infused Over: 2 hrs; db Site: right antecubital; 22:24 Follow up: Response: No adverse reaction; IV Status: Completed infusion nh2 Disposition: 01/01 07:37 Co-signature as Attending Physician, Teo Nj MD I agree with the assessment and melissa plan of care. Disposition Summary: 12/31/24 16:55 Hospitalization Ordered Notes: Hospitalization Status: Inpatient Admission kb Provider: Jarrod Knight Condition: Stable kb Problem: new kb Symptoms: are unchanged kb Bed/Room Type: Standard kb Location: Telemetry/MedSurg (Inpatient)(12/31/24 20:01) vc1 Room Assignment: 210(12/31/24 21:28) cp4 Diagnosis - Cellulitis of left lower limb kb Forms: - Medication Reconciliation Form kb - SBAR form kb - Leadership Thank You Letter kb Signatures: Dispatcher [employer] Bella Gibson, TERRAZZO HELPER-C TERRAZZO HELPER-Teo Sampson MD MD cha Calcote, Vanessa RN RN vc1 Stephanie Cueto RN RN db Day Weller cp4 Ti Rutherford Jr RN RN nh2 Corrections: (The following items were deleted from the chart) 12/31 13:27 13:27 Chest Single View+RAD.RAD.BRZ ordered. EDMS EDMS 16:52 16:52 BLOOD CULTURE*+BA.LAB.BRZ ordered. EDMS EDMS 16:52 16:52 LACTATE+C.LAB.BRZ ordered. EDMS EDMS 16:52 16:52 PROTIME (+INR)+COAG.LAB.BRZ ordered. EDMS EDMS 16:52 16:52 PTT, ACTIVATED+COAG.LAB.BRZ ordered. EDMS EDMS 1652 16:52 HEPATIC FUNCTION+C.LAB.BRZ ordered. EDMS EDMS 19:57 16:55 Telemetry/MedSurg (Inpatient) kb vc1 19:57 16:55 kb vc1 20:01 19:57 [facility] ER HOLD vc1 vc1 20:01 19:57 ERHOLD- vc1 vc1 21:28 20:01 vc1 cp4
[2024-12-31 17:02] LABS: Blood Morphology Comment NOT SEEN (NOT SEEN); White Blood Cell Scan OK (OK)
[2024-12-31] MEDS ORDERED: VANCOMYCIN 1 GM/VIAL ONE (17:41)
[2024-12-31] MEDS ORDERED: NA CHLORIDE 0.9% 250 ML ONE (17:41)
[2024-12-31 17:44] LABS: PT Prothrombin Time 12.0 SECONDS (10-13.0); PTT, Activated Partial Thromb 33.4 SECONDS (27.2-37.4); Protime INR 1.06
[2024-12-31 17:50] LABS: ALT/SGPT 39 U/L (16-61); AST/SGOT 23 U/L (15-37); Albumin 3.2 g/dL (3.4-5.0); Albumin/Globulin Ratio 0.8 (1.1-1.8); Alkaline Phosphatase 110 U/L (45-117); Bilirubin Indirect, Calculated 0.0 mg/dL (0.2-0.8); Globulin 4.2 g/dL (2.3-3.5)
--- NOTE | 2024-12-31 21:27 | P.HP ---
Certification for Inpatient Patient admitted to: Observation With expected LOS: <2 Midnights Patient will require the following post-hospital care: None Practitioner: I am a practitioner with admitting privileges, knowledge of patient current condition, hospital course, and medical plan of care. Services: Services provided to patient in accordance with Admission requirements found in Title 42 Section 412.3 of the Code of Federal Regulations Patient History Date of Service: 12/31/24 Reason for admission: Cellulitis left leg. History of Present Illness: Patient is a 55-year-old male with multiple past medical history including brain aneurysm, TBI, stroke in , diabetic neuropathy, type 2 diabetes mellitus, essential hypertension, seizure disorder, torn ligament right shoulder, left foot drop currently using AFO. Patient brought to ER today due to increased swelling to left leg with erythema and pain. Patient states while using his AFO, sustained an open wound couple of days ago, and appears the wound got infected resulting to cellulitis to his left leg. Patient states he also noticed some oozing from the wound today nonpurulent. States his left leg swelling was very noticeable today associated with increased pain, and erythema which then prompted him to report to the ER. On admission assessment, patient has an open wound to his left leg and left thigh area, and cellulitis left leg. Patient denies of any associated chest pain or shortness of breath. Patient's speech at time is difficult to understand due to residual deficit from previous stroke. No drainage noted from patient wound at this time. Patient remains afebrile at this time. Course in ER. (1)Extremity venous study left leg. Impression: There is no deep vein or superficial vein thrombosis. (2) chest x-ray. Impression: No acute intrathoracic abnormalities. Allergies No Known Allergie Allergy (Uncoded 10/31/17 12:48) Unknown Home Medications: Atorvastatin Calcium [Lipitor] 80 mg PO BEDTIME 10/02/23 Gabapentin 600 mg PO TID 10/02/23 Metformin HCl 1,000 mg PO BIDWM 10/02/23 Semaglutide [Ozempic] 2 mg SQ Q7D 10/02/23 Sertraline [Zoloft*] 100 mg PO DAILY 10/02/23 Trazodone HCl 100 mg PO BEDTIME 10/02/23 levETIRAcetam [Keppra*] 500 mg PO BID 10/02/23 - Past Medical/Surgical History Diabetic: Yes -: hypertension -: Brain aneurysm -left-sided weakness -: Hyperlipidemia -: Seizure disorder -: Diabetes -: TBI -: Stroke. -: Diabetic neuropathy. -: Torn ligament right shoulder. -: Neurosurgery Psychosocial/ Personal History: States he just wanted to go away so took all of his prescription medications. He has been for 26yrs, has teenage children. Has PT in [place] 2/wk. - Social History Smoking Status: Never smoker Alcohol use: Yes CD- Drugs: No Caffeine use: Yes Place of Residence: Home Review of Systems 10-point ROS is otherwise unremarkable Musculoskeletal: Leg Pain Integumentary: Other (Left leg cellulitis, and wound.) Neurological: Weakness, Other (TBI.) Physical Examination - Physical Exam General: Alert, In no apparent distress, Oriented x3, Cooperative, Cachectic HEENT: Atraumatic, Normocephalic, PERRLA, Mucous membr. moist/pink, Sclerae nonicteric Neck: Supple, 2+ carotid pulse no bruit, JVD not distended, No Thyromegaly, No LAD, Without JVD or thyroid abnormality Respiratory: Clear to auscultation bilaterally, Normal air movement Cardiovascular: No edema, Normal pulses, Regular rate/rhythm, Normal S1 S2, No gallops, No rubs, No murmurs Capillary refill: <2 Seconds Gastrointestinal: Normal bowel sounds, Hypoactive, Non-distended, W/out hepatomegaly, No ascites, No tenderness, No masses, No rebound, No guarding Musculoskeletal: No clubbing, No swelling, Contractures (Slight contracture left arm), Tenderness (Left leg cellulitis), Warmth (Left leg cellulitis.) Integumentary: No rashes, No cyanosis, Skin lesion (Left leg.), Erythema (Left leg pain), Warmth (Left leg cellulitis.) Neurological: Normal speech, Normal strength at 5/5 x4 extr, Normal tone, Sensation intact, Normal reflexes 2+, Normal affect Lymphatics: No axilla or inguinal lymphadenopathy - Studies Laboratory Data (last 24 hrs) 12/31/24 12/31/24 12/31/24 17:22 17:22 16:14 WBC 14.50 H Hgb 12.6 L Hct 39.5 L Plt Count 184 PT 12.0 INR 1.06 APTT 33.4 Sodium Potassium BUN Creatinine Glucose Total Bilirubin 0.2 AST 23 ALT 39 Alkaline Phosphatase 110 12/31/24 15:44 WBC Hgb Hct Plt Count PT INR APTT Sodium 143 Potassium 4.4 BUN 13 Creatinine 0.87 Glucose 136 H Total Bilirubin AST ALT Alkaline Phosphatase Male Exam - Male Exam Inguinal exam: No hernias Assessment and Plan - Plan Patient admitted to observation with diagnosis of cellulitis left leg. (1)Cellulitis left leg. WBC 14.50. Remains afebrile at this time. -Ancef 2 g IV every 8 hours. -Vancomycin 1.5 g IV daily. -Morphine 4 mg IV as needed every 6 hours. -Order nurses to clean patient wound left leg and thigh with NS, apply Bactroban ointment, daily and as needed. (2)Chronic type 2 diabetes mellitus. - ACHS with moderate sliding scale coverage. -Continue metformin 1000 mg p.o. twice daily. -Order A1c. (3)Chronic seizure disorder. -Continue home medication Keppra 500 mg p.o. twice daily. (4)Chronic diabetic neuropathy/spasms. -Has baclofen pump insertion. (5) chronic hypercholesteremia. -Continue atorvastatin 80 mg p.o. daily. (6) DVT prophylaxis. - Lovenox 40 mg subcu daily. (7)Explained the entire treatment plan to the patient, solicited questions answered and voiced understanding. Discharge Plan: Home Plan to discharge in: 48 Hours - Advance Directives Does patient have a Living Will: No Does patient have a Durable POA for Healthcare: No - Code Status/Comfort Care Code Status Assessed: Yes Code Status: Full Code Critical Care: Yes Time Spent Managing Pts Care (In Minutes): 55
[2024-12-31 22:40] VITALS: O2SAT 97
[2025-01-01 00:11] VITALS: BMI 35.7
[2025-01-01] MEDS: MORPHINE 4 MG/ML SYR IV PRN (00:28)
[2025-01-01] MEDS: CEFAZOLIN SODIUM 2 GM in NA CHLORIDE 0.9% 100 ML IVPB SCH (00:29)
[2025-01-01] MEDS: VANCOMYCIN 1 GM in NA CHLORIDE 0.9% 250 ML IVPB ONE (01:48)
[2025-01-01] MEDS: ACETAMINOPHEN 325 MG TABLET PO PRN (04:50)
[2025-01-01 07:18] LABS: Absolute Lymphocytes (CBC) 3.3 K/uL (0.7-4.9); Hematocrit 38.5 % (39.6-49.0); Hemoglobin 12.3 g/dL (13.6-17.9); MCH 23.9 pg (27.0-35.0); MCHC 32.0 g/dL (32.0-36.0); MCV 74.9 fL (80-100); MPV 8.9 fL (7.6-11.3); Nucleated RBC Absolute Count 0.0 (0-0); Nucleated Red Blood Cells % 0.0 % (0-0); RBC Red Blood Cell Count 5.14 M/uL (4.33-5.43); White Blood Count 11.30 thou/uL (4.3-10.9)
[2025-01-01] MEDS: INSULIN REGULAR (HUMAN) 100 UNIT/ML SQ SCH (07:30)
[2025-01-01 07:41] LABS: ALT/SGPT 36.0 U/L (16-61); AST/SGOT 19.0 U/L (15-37); Albumin 2.9 g/dL (3.4-5.0); Albumin/Globulin Ratio 0.8 (1.1-1.8); Alkaline Phosphatase 89.0 U/L (45-117); Anion Gap 8.6 mEq/L (5.0-15.0); BUN Blood Urea Nitrogen 9.0 mg/dL (7-18); Globulin 3.8 g/dL (2.3-3.5); Glucose Level 132.0 mg/dL (74-106); Magnesium 1.7 mg/dL (1.6-2.4); Potassium 3.6 mEq/L (3.5-5.1)
[2025-01-01] MEDS ORDERED: VANCOMYCIN 1.25 GM in NA CHLORIDE 0.9% 250 ML IVPB SCH (09:00)
[2025-01-01] MEDS: GABAPENTIN 300 MG CAP PO SCH (09:18)
[2025-01-01] MEDS: METFORMIN HCL 500 MG TAB PO SCH ×2 (09:18→09:20)
[2025-01-01] MEDS: SERTRALINE HCL 100 MG TAB PO SCH (09:19)
[2025-01-01] MEDS: ENOXAPARIN 40 MG/0.4 ML SQ SCH (09:19)
[2025-01-01] MEDS: levETIRAcetam 500 MG TAB PO SCH (09:19)
[2025-01-01] MEDS: FLU (Fluarix) 25-26 (6MOS UP)/PF 45 MCG/0.5 ML Syringe IM ONE (09:21)
[2025-01-01] MEDS: PNEUMOCOCCAL VACCINE 0.5 ML IMVAC ONE (09:22)
[2025-01-01] MEDS: VANCOMYCIN 2 GM in NA CHLORIDE 0.9% 500 ML IVPB SCH (13:15)
[2025-01-01 16:45] VITALS: BP 158/80; TEMP 98.2
--- NOTE | 2025-01-01 18:41 | P.DS ---
Admission Date: 12/31/24 Discharge Date: 01/01/25 Disposition: ROUTINE DISCHARGE Discharge Condition: FAIR Reason for Admission: Cellulitis left leg. Brief History of Present Illness: 55-year-old male with multiple past medical history including brain aneurysm, TBI, stroke in , diabetic neuropathy, type 2 diabetes mellitus, essential hypertension, seizure disorder, torn ligament right shoulder, left foot drop currently using AFO presented to the ER due to increased swelling to left leg with erythema and pain. Patient states while using his AFO, sustained an open wound couple of days ago. Patient states he also noticed some oozing from the wound today nonpurulent. States his left leg swelling was very noticeable today associated with increased pain, and erythema which then prompted him to report to the ER. On admission assessment, patient has an open wound to his left leg and left thigh area. No drainage noted from patient wound at this time. No fever, patient had mild leukocytosis. He was hospitalized for further management. Hospital Course: Diagnosis Left leg wound Peripheral edema Diabetes mellitus type 2 Seizure disorder Diabetic neuropathy Patient was admitted to the medical floor and started on IV Ancef and vancomycin. Leukocytosis improved, patient was afebrile. Mild erythema was noted on the medial aspect of the left leg along with a dry scratch wound. Patient noted to have bilateral lower extremity edema. Blood cultures yielded no growth. Erythema significantly improved. Patient is discharged with oral Augmentin and doxycycline to continue treatment for possible cellulitis of the left lower extremity. He is also prescribed Lasix for 1 week to treat the peripheral edema. Patient advised to follow-up with his PCP for reevaluation within one week. Vital Signs/Physical Exam: Temp Pulse Resp BP Pulse Ox 98.2 F 66 18 158/80 H 96 01/01/25 16:00 01/01/25 16:00 01/01/25 16:00 01/01/25 16:00 01/01/25 16:00 General: Alert, In no apparent distress, Oriented x3, Obese HEENT: Mucous membr. moist/pink, Sclerae nonicteric Neck: Supple, JVD not distended Respiratory: Clear to auscultation bilaterally, Normal air movement Cardiovascular: Regular rate/rhythm, Normal S1 S2, Edema (Bilateral legs) Gastrointestinal: Normal bowel sounds, Soft and benign, Non-distended Integumentary: No cyanosis Neurological: Normal strength at 5/5 x4 extr Laboratory Data at Discharge: WBC 11.30 thou/uL (4.3-10.9) H 01/01/25 06:19 Hgb 12.3 g/dL (13.6-17.9) L 01/01/25 06:19 Hct 38.5 % (39.6-49.0) L 01/01/25 06:19 Plt Count 238 thou/uL (152-406) D 01/01/25 06:19 PT 12.0 SECONDS (10-13.0) 12/31/24 17:22 INR 1.06 12/31/24 17:22 APTT 33.4 SECONDS (27.2-37.4) 12/31/24 17:22 Sodium 141 mEq/L (136-145) 01/01/25 06:19 Potassium 3.6 mEq/L (3.5-5.1) D 01/01/25 06:19 BUN 9 mg/dL (7-18) 01/01/25 06:19 Creatinine 0.66 mg/dL (0.70-1.30) L 01/01/25 06:19 Glucose 132 mg/dL (74-106) H 01/01/25 06:19 Magnesium 1.7 mg/dL (1.6-2.4) 01/01/25 06:19 Total Bilirubin 0.3 mg/dL (0.2-1.0) 01/01/25 06:19 AST 19 U/L (15-37) 01/01/25 06:19 ALT 36 U/L (16-61) 01/01/25 06:19 Alkaline Phosphatase 89 U/L (45-117) 01/01/25 06:19 Home Medications: Atorvastatin Calcium [Lipitor] 80 mg PO BEDTIME 10/02/23 Gabapentin 600 mg PO TID 10/02/23 Metformin HCl 1,000 mg PO BIDWM 10/02/23 Semaglutide [Ozempic] 2 mg SQ Q7D 10/02/23 Sertraline [Zoloft*] 100 mg PO DAILY 10/02/23 Trazodone HCl 100 mg PO BEDTIME 10/02/23 levETIRAcetam [Keppra*] 500 mg PO BID 10/02/23 Amox/Clavulanate [Augmentin 875-125 Tab] 1 each PO BID #20 tab 01/01/25 Doxycycline Hyclate 100 mg PO BID #20 tab 01/01/25 Hydrocodone 5/APAP 325 [[place] 5/325] 1 tab PO Q6H PRN #12 tab 01/01/25 New Medications: Amox/Clavulanate [Augmentin 875-125 Tab] 1 each PO BID #20 tab Doxycycline Hyclate 100 mg PO BID #20 tab Hydrocodone 5/APAP 325 [[place] 5/325] 1 tab PO Q6H PRN #12 tab PRN Reason: Pain Physician Discharge Instructions: Patient was admitted to the medical floor and started on IV Ancef and vancomycin. Leukocytosis improved, patient was afebrile. Mild erythema was noted on the medial aspect of the left leg along with a dry scratch wound. Patient noted to have bilateral lower extremity edema. Blood cultures yielded no growth. Erythema significantly improved. Patient is discharged with oral Augmentin and doxycycline to continue treatment for possible cellulitis of the left lower extremity. He is also prescribed Lasix for 1 week to treat the peripheral edema. Patient advised to follow-up with his PCP for reevaluation within one week. Patient also advised to follow-up with his PCP regarding evaluation for peripheral neuropathy. Followup: Saritha Holbrook FNP [Primary Care Provider] - 1-2 Weeks Time spent managing pt's care (in minutes): 34
[2025-01-01] MEDS ORDERED: TRAZODONE 50 MG TABLET PO SCH (21:00)
[2025-01-01] MEDS ORDERED: ATORVASTATIN 80 MG TAB PO SCH (21:00)
[2025-01-04] MEDS ORDERED: SEMAGLUTIDE 2 MG/0.75 ML SQ SCH (09:00)
== END 2025-01-01 19:49 | disposition home or self-care (01) ==
LOC: ER 13:02 → 2ND 21:16
PROVIDERS: ADMIT Internal Medicine; ATTEND Internal Medicine
DX: L03.116 Cellulitis of left lower limb (principal); E11.9 Type 2 diabetes mellitus without complications; I10 Essential (primary) hypertension; R56.9 Unspecified convulsions; M21.372 Foot drop, left foot; E11.40 Type 2 diabetes mellitus with diabetic neuropathy, unspecified; E78.00 Pure hypercholesterolemia, unspecified; R60.9 Edema, unspecified; Z86.73 Personal history of transient ischemic attack (TIA), and cerebral infarction without residual deficits; Z23 Encounter for immunization
CPT/HCPCS: 36415; 71045; 80048; 80053; 80076; 82947; 83605; 83735; 85025; 85610; 85730; 87040; 90471; 90656; 90732; 93970; 96365; 96366; 99285; J1650; J1815; J3373; J7040; J7050